=== PATIENT | male | born 1955 | race Caucasian/White ===

== ENCOUNTER → 2018-01-30 12:39 | Outpatient (CLI) | payer BC, SELFPAY ==
--- NOTE | 2018-01-31 05:42 | PFTCOMP_ITS ---
COMPLETE PULMONARY FUNCTION TEST INTERPRETATION Brief HPI: Patient is a 62 year old male, currently under the care of myself, who presents to [facility] for complete pulmonary function tests secondary to diagnosis of restrictive lung disease. Respiratory therapist reports good effort and reproducible results. Interpretation: Forced expiration spirometry shows no large airways obstructive ventilatory defect with an FEV1 of 72% predicted. There is no significant bronchodilator response by ATS criteria. Spirograms are of good quality and plateau normally. The respiratory flow volume loop shows a normal pattern. Lung volumes by body plethysmography show a decreased total lung capacity at 4.75 L, 80% predicted. All other lung volumes are reduced symmetrically. Diffusion capacity by carbon monoxide is normal at 75% predicted. The airway resistance is normal. Compared to previous pulmonary function tests from 02/02/2016, there has been a significant improvement in total lung capacity. Impression: Irreversible mild restrictive ventilatory defect with preserved diffusion capacity and significant improvement over the last 2 years.
== END ==
LOC: PSN 12:40
PROVIDERS: Family Provider Family Medicine; PCP Family Medicine; Visit Provider Internal Medicine Critical Care Medicine
DX: J98.4 Other disorders of lung (principal); G47.37 Central sleep apnea in conditions classified elsewhere
CPT/HCPCS: 94060; 94726; 94729

== ENCOUNTER → 2018-04-02 10:37 | Outpatient (CLI) | payer BC, SELFPAY ==
[2018-04-02 12:05] LABS: ALB/GLOB Ratio 0.9 RATIO (0.9-2.4); AST(SGOT) 33 U/L (15-37); Alanine Aminotransfer ALT/SGPT 43 U/L (16-61); Albumin, Serum 3.7 g/dL (3.2-5.0); Alkaline Phosphatase 116 U/L (45-117); Anion Gap 13 (5-15); BUN 23 mg/dL (7-18); BUN/Creat Ratio 17.8 RATIO (10-20); Calcium,Total 8.8 mg/dL (8.5-10.1); Chloride 97 mmol/L (98-107); Cholesterol 136 mg/dL (200); Creatinine, Serum 1.29 mg/dL (0.70-1.30); EST Glomerular Filtration Rate 60 mL/min (>60); Est Glom Filt Rate - Afr Amer 73 mL/min (>60); Glucose 190 mg/dL (74-106); High Density Lipoprotein 25 mg/dL; Potassium 3.5 mmol/L (3.5-5.1); Protein, Total 7.7 g/dL (6.4-8.2); Sodium Level 138 mmol/L (136-145); Thyroid Stim Hormone (TSH) 1.19 uIU/mL (0.358-3.74); Triglycerides 366 mg/dL; Very Low Density Lipoprotein 73 mg/dL (5-40)
[2018-04-02 12:27] LABS: Hemoglobin A1c 11.3 % (4.2-6.3)
== END ==
LOC: LAB 10:39
PROVIDERS: Family Provider Family Medicine; PCP Family Medicine; Visit Provider Nurse Practitioner
DX: E11.49 Type 2 diabetes mellitus with other diabetic neurological complication (principal)
CPT/HCPCS: 36415; 80053; 80061; 83036; 84443

== ENCOUNTER → 2018-04-03 13:05 | Outpatient (CLI) | payer BC, SELFPAY ==
[2018-04-03 13:55] LABS: Microalbumin,Random Urine < 5.0 mg/L (NO RANGE EST.)
== END ==
PROVIDERS: Family Provider Family Medicine; PCP Family Medicine; Visit Provider Nurse Practitioner
DX: E11.49 Type 2 diabetes mellitus with other diabetic neurological complication (principal)
CPT/HCPCS: 82043; 82570

== ENCOUNTER 2019-05-02 18:32 | Observation (INO) | payer BC, SELFPAY ==
[2018-10-01 13:21] VITALS: BMI 23.1
[2019-05-02] VITALS (8 sets, daily range): BP systolic 76–165; BP diastolic 49–114; PULSE 80–99; RESP 13–16; TEMP 36.9; O2SAT 94–97; BMI 23.0; BMI 22.2
--- NOTE | 2019-05-02 18:50 | RAD_ITS ---
STUDY: X-RAY CHEST REASON FOR EXAM: Male, 63 years old. Syncope. TECHNIQUE: Portable chest. COMPARISON: 01/20/2015. FINDINGS: The patient is rotated to the left. Sternotomy and surgical clips compatible with CABG. The lungs are clear and expanded. There is no demonstrated pleural abnormality. Normal size heart. Normal mediastinum and ramses. Normal visualized pulmonary arteries. Normal visualized aortic arch and descending thoracic aorta. Normal visualized thoracic spine. Normal visualized ribs, clavicles, and shoulders. There is no demonstrated abnormality of the visualized soft tissue structures of the upper abdomen. RAD/Chest 1 View (Portable) IMPRESSION: Normal x-ray examination of the chest. Electronically Signed: Alta Lemus MD at 19:43 EDT Tel , Service support ,
--- NOTE | 2019-05-02 18:50 | EKG12_ITS ---
Test Reason : SYNCOPE Blood Pressure : / mmHG Vent. Rate : 096 BPM Atrial Rate : 096 BPM P-R Int : 140 ms QRS Dur : 088 ms QT Int : 350 ms P-R-T Axes : 012 042 051 degrees QTc Int : 442 ms Sinus rhythm with Fusion complexes Otherwise normal ECG Confirmed by CARLOS MANUEL MONTE, SAMSON ([id number]), assistant film editor JOSE LUIS JUAREZ ([id number]) on 05/06/2019 3:30:17 PM Referred By: SADE Confirmed By:SAMSON HOROWITZ MD
[2019-05-02 18:58] LABS: Absolute Lymphocyte Count 0.89 X10^3/uL (0.83-4.51); Absolute Neutrophil Count 5.6 X10^3/uL (2.0-7.7); Basophil# 0.03 X10^3/uL; Basophil% 0.4 % (0-1); Eosinophil# 0.04 X10^3/uL; Eosinophils% 0.5 % (0-5); Hematocrit 36.4 % (40-54); Lymphocyte # 0.89 X10^3/ul (4.0); Lymphocyte % 12.1 % (19-41); Mean Corp Hgb Conc 27.5 g/dL (32-36); Mean Corpuscular Hgb 20.4 pg (27.0-32.0); Mean Corpuscular Volume 74.3 fL (80-94); Monocyte% 10.9 % (0-10); NRBC Flagged by Analyzer 0 % (0-5); Neutrophil # 5.57 X10^3/uL (2.7-7.7); Neutrophil % 75.7 % (47-70); Platelet Count 453 K/mm3 (150-450); RBC Distribution Width CV 17.6 % (11.6-14.6); RBC Distribution Width SD 46.8 fl (35.1-43.9); White Blood Count 7.4 K/mm3 (4.4-11.0)
[2019-05-02 19:18] LABS: Anion Gap 12 (5-15); BUN 26 mg/dL (7-18); BUN/Creat Ratio 14.3 RATIO (10-20); Calcium,Total 9.4 mg/dL (8.5-10.1); Chloride 102 mmol/L (98-107); Creatinine, Serum 1.82 mg/dL (0.70-1.30); EST Glomerular Filtration Rate 40 mL/min (>60); Est Glom Filt Rate - Afr Amer 49 mL/min (>60); Estimated Creatinine Clearance 39.85 ml/min; Glucose 105 mg/dL (74-106); Potassium 3.9 mmol/L (3.5-5.1); Sodium Level 139 mmol/L (136-145)
--- NOTE | 2019-05-02 19:27 | NURSING ---
DR DELAROSA NOTIFID OF ORTHOS
[2019-05-02] MEDS: 0.9% Normal Saline 1,000 ML 150 ML IV (19:34)
--- NOTE | 2019-05-02 19:48 | ED.VISSUMM ---
- ER Visit Summary Date of Service: 05/02/19 Chief Complaint: [Syncope] History of Present Illness: The patient is a 63 M [presents to the emergency department with a syncopal episode this afternoon. Patient went to his doctor's office because he has had some difficulty seeing over the last couple of days so he went to the [facility] where he was evaluated. On the way out to the car patient felt lightheaded and dizzy and there was a chair near the vehicle that the got him into and the patient passed out for short time. She denies any chest pain or shortness of breath. She denies any abdominal pain. Patient has had some intermittent blood in his stool for about a year he relates to hemorrhoids. Denies recent illness and has had no vomiting or diarrhea. Patient has history of coronary artery disease, diabetes, hypertension, high cholesterol, peripheral vascular disease, and cardiomyopathy.] Physical Examination: [HEENT-PERRLA, EOMI. Cranial nerves II through XII grossly intact. TMs clear. Mucous membranes moist. No adenopathy. Cardiovascular-regular rate and rhythm without murmur or ectopy Lungs-clear to auscultation, chest wall stable without crepitus or subcu emphysema Abdomen-normoactive bowel sounds, soft, nontender, no rebound or rigidity, no peritoneal signs. Extremities-intact ?4, normal range of motion, normal pulses, atraumatic] Test Results: [EKG obtained on arrival shows sinus rhythm with a ventricular rate of 96 bpm. CBC with differential showed a white count 7.4, hemoglobin 10, hematocrit 36, platelets 453. Chemistries unremarkable. BUN was 26 and creatinine 1.82. Troponin is less than 0.015. Chest x-ray obtained was normal. Orthostatic vital signs were positive. With sitting patient's blood pressure dropped into the 70 systolic.] Emergency Department Course and Treatment: [Patient was ordered a liter normal same fluid bolus.] Treatment Plan: [Admit] Disposition: [Admit] Impression: [Syncope Orthostatic hypotension Acute kidney injury] This note was generated with [employer] dictation software. It may contain incorrect words, spelling, and punctuation that were not noted in review of the chart prior to signing ED Disposition - Plan for ED Patient: Referrals: Kendy Modi MD [Primary Care Provider] -
--- NOTE | 2019-05-02 20:22 | PCM.HP.STD ---
Problem List (1) Peripheral vascular disease Status: Acute (2) Hyperlipidemia Status: Acute (3) Ischemic cardiomyopathy Status: Acute (4) TIA (transient ischemic attack) Status: Acute (5) Type 2 diabetes mellitus Status: Chronic Qualifiers: Diabetes mellitus ad terminal makeup operator insulin use: unspecified chcf insulin use status Diabetes mellitus complication status: with neurologic complications Diabetes mellitus complication detail: with unspecified neuropathy Qualified Code(s): E11.40 - Type 2 diabetes mellitus with diabetic neuropathy, unspecified (6) Anxiety disorder Status: Chronic (7) GERD (gastroesophageal reflux disease) Status: Chronic (8) Carotid artery disease Status: Chronic (9) History of coronary artery stent placement Status: Chronic Comment: CZQ-GQS-YLL-Ramus 01/02/15 (10) H/O coronary artery bypass surgery Status: Chronic Comment: CABG x 5 05/30/2008 ZUNIGA-LAD and D1, Free KIMBERLYN-PDA, SVG-Ramus, SVG-OM1 (11) CVA (cerebral vascular accident) Status: Chronic Comment: cerebellar stroke Right endarterectomy (12) Diabetes Status: Chronic Qualifiers: Diabetes mellitus type: type 2 Diabetes mellitus ad terminal makeup operator insulin use: with ad terminal makeup operator use Diabetes mellitus complication status: with unspecified complications Comment: Dx : 2007 Last exacerbation : DKA : never Hypoglycemic episode : never ER visit : never (13) HTN (hypertension) Status: Chronic Qualifiers: Hypertension type: essential hypertension Qualified Code(s): I10 - Essential (primary) hypertension (14) Dyslipidemia Status: Chronic History of Present Illness Date of Admission: 05/02/19 Chief Complaint: Syncope The patient is a 63 year old M with PMH as below who presents with a syncopal episode that happened this afternoon. He states that he went to his eye doctor's office for an exam for bleed in his left eye. He left and as has he was walking to the car he got lightheaded and dizzy and his was able to get him into a chair next to the car and he passed out for a short time. He did not have any post ictal type symptoms, and there is no seizure-like activity. He states that he has been having episodes of blood clots and bright red blood per his rectum since last April, but he has not wanted to have it checked out by a doctor. He 63 years old and is never had a colonoscopy before. He thinks that his bleeding is related to hemorrhoids. He denies any hematemesis. In the ER he was found to have a hemoglobin of 10, and was also orthostatic. He was given IV fluids and was admitted for syncopal evaluation. Past Medical History Past Medical History (Chronic Problems): Chronic Problems (Last Reviewed 10/01/18 @ 13:13 by Patsy Joya) Obstructive sleep apnea (Chronic) Dizziness and giddiness (Chronic) Long-term current use of high risk medication other than anticoagulant (Chronic) Central sleep apnea (Chronic) Nocturnal hypoxia (Chronic) Restrictive lung disease (Chronic) Type 2 diabetes mellitus (Chronic) Anxiety disorder (Chronic) GERD (gastroesophageal reflux disease) (Chronic) Carotid artery disease (Chronic) S/P right and left heart catheterization (Chronic 01/22/15) History of coronary artery stent placement (Chronic 01/02/15) [id number]-UOH-BEO-Ramus 01/02/15 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) H/O coronary artery bypass surgery (Chronic 05/30/08) CABG x 5 05/30/2008 ZUNIGA-LAD and D1, Free KIMBERLYN-PDA, SVG-Ramus, SVG-OM1 Peripheral vascular occlusive disease (Chronic) CVA (cerebral vascular accident) (Chronic) cerebellar stroke Right endarterectomy Diabetes (Chronic) Dx : 2007 Last exacerbation : DKA : never Hypoglycemic episode : never ER visit : never HTN (hypertension) (Chronic) Dyslipidemia (Chronic) ALEJANDRO (obstructive sleep apnea) (Chronic) Dizziness (Chronic) Medical History: Medical History (Last Reviewed 10/01/18 @ 13:13 by Patsy Joya) Obstructive sleep apnea (Chronic) G47.33 Dizziness and giddiness (Chronic) R42 Long-term current use of high risk medication other than anticoagulant (Chronic) Z79.899 Central sleep apnea (Chronic) G47.31 Nocturnal hypoxia (Chronic) G47.34 Restrictive lung disease (Chronic) J98.4 Type 2 diabetes mellitus (Chronic) E11.9 Anxiety disorder (Chronic) F41.9 GERD (gastroesophageal reflux disease) (Chronic) K21.9 Carotid artery disease (Chronic) I77.9 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) I25.798 Peripheral vascular occlusive disease (Chronic) I73.9 CVA (cerebral vascular accident) (Chronic) I63.9 cerebellar stroke Right endarterectomy Diabetes (Chronic) E11.9 Dx : 2007 Last exacerbation : DKA : never Hypoglycemic episode : never ER visit : never HTN (hypertension) (Chronic) I10 Dyslipidemia (Chronic) E78.5 ALEJANDRO (obstructive sleep apnea) (Chronic) G47.33 Dizziness (Chronic) R42 Diabetic neuropathy E11.40 Chronic back pain M54.9, G89.29 Allergies No Known Allergies Allergy (Verified 10/01/18 13:21) Home Medications: Ambulatory Orders Medication Instructions Recorded Aspirin 81 mg PO DAILY 03/20/16 Duloxetine HCl 60 mg PO DAILY 03/20/16 nitroglycerin 0.4 mg sublingual 0.4 mg SUBLINGUAL Q5-15M PRN 03/02/18 tablet insulin lispro (U-100) 100 unit/mL See Rx Instructions SC .COMPLEX 04/02/18 subcutaneous pen #60 ml clopidogrel 75 mg tablet 75 mg PO DAILY #90 tab 08/13/18 omeprazole 20 mg capsule,delayed 20 mg PO DAILY #90 cap 10/01/18 release lisinopril 10 mg tablet 10 mg PO DAILY #90 tab 02/26/19 rosuvastatin 20 mg tablet 20 mg PO DAILY #90 tab 02/26/19 hydrochlorothiazide 12.5 mg capsule 12.5 mg PO DAILY #90 cap 02/27/19 Cbd Oil 1 dose PO BID PRN PRN 05/02/19 Insulin Detemir [Levemir FlexPen] 70 unit SUBCUT QHS 05/02/19 Metoprolol Tartrate 12.5 mg PO BID 05/02/19 Surgical History: Surgical History (Last Reviewed 10/01/18 @ 13:13 by Patsy Joya) S/P right and left heart catheterization (Chronic) Onset Date: 01/22/15 Z98.890 History of coronary artery stent placement (Chronic) Onset Date: 01/02/15 Z95.5 NOD-KXU-JWD-Ramus 01/02/15 H/O coronary artery bypass surgery (Chronic) Onset Date: 05/30/08 Z95.1 CABG x 5 05/30/2008 ZUNIGA-LAD and D1, Free KIMBERLYN-PDA, SVG-Ramus, SVG-OM1 Excision Max.Zygoma Face Tumor History of herniorrhaphy Z98.890, Z87.19 History of right-sided carotid endarterectomy Z98.890 History of tonsillectomy Z98.890, Z90.89 PTCA Left Anterior Tibial and Paroneal Artery Surgical History: coronary bypass surgery Psychiatric History: No pertinent psych hx Smoking Status: Never smoker - *Family History Paternal Family History: Family History (Last Reviewed 10/01/18 @ 13:13 by Patsy Joya) Father CAD (coronary artery disease) Hypertension Mother CVA (cerebral vascular accident) Diabetes Breast cancer History Items: Cancer, - Maternal Family History: Family History (Last Reviewed 10/01/18 @ 13:13 by Patsy Joya) Father CAD (coronary artery disease) Hypertension Mother CVA (cerebral vascular accident) Diabetes Breast cancer History Items: Cancer, - Review of Systems Constitutional: Denies: Chills, Fever, Weight Change HEENT: Denies: Head Aches, Sinus Congestion, Sinus Drainage Cardiovascular: Reports: Light Headedness, Syncope. Denies: Chest Pain, Palpitations Respiratory: Denies: Cough, Shortness of breath at rest, Sputum production Gastrointestinal: Reports: Hematochezia, Melena. Denies: Abdominal Pain, Nausea, Vomiting Genitourinary: Denies: Dysuria Musculoskeletal: Denies: Joint Pain, Joint Tenderness Skin: Denies: Rash, Wounds Neurological: Denies: Numbness, Tingling, Focal weakness Psychiatric: Denies: Anxiety, Depression Hematologic/ Lymphatic: Denies: Easy Bruising, Easy Bleeding VTE Information - Inpt Only VTE Present on Admission: No - Physical Exam General: Alert, Oriented x3, Cooperative, No apparent distress, - - Pale HEENT: Atraumatic, PERRLA, EOMI, Normocephalic Oral: Dry Mucosa Neck: Supple, No JVD Lungs: Clear to auscultation, Normal air movement, No rhonchi, No wheeze, No rales Cardiovascular: Regular rate, Regular Rhythm, Normal S1, Normal S2, No murmurs Abdomen: Soft, Non Tender, Non-Distended, No Hepato-splenomegaly Extremities: No edema, Capillary Refill Less than 3 Seconds Skin: No rashes, No breakdown Neurological: Motor Exam 5/5 strength throughout, Sensory exam intact to light touch and pain Psych/Mental Status: Normal Affect, Appropriate Vital Signs Temp Pulse Resp BP Pulse Ox 98.5 F 85 13 108/64 95 05/02/19 18:33 05/02/19 19:33 05/02/19 19:33 05/02/19 19:33 05/02/19 19:33 Oxygen Delivery Method Room Air Weight: 147 lb 0.773 oz Body Mass Index (BMI) 23.0 Finger Stick Blood Glucose 339 Laboratory Tests Past 24 Hrs 05/02/19 05/02/19 18:41 18:41 WBC 7.4 RBC 4.90 Hgb 10.0 L Hct 36.4 L MCV 74.3 L MCH 20.4 L MCHC 27.5 L RDW Std Deviation 46.8 H RDW Coeff of Maia 17.6 H Plt Count 453 H MPV 9.0 Immature Gran % (Auto) 0.400 Neut % (Auto) 75.7 H Lymph % (Auto) 12.1 L [place] % (Auto) 10.9 H Eos % (Auto) 0.5 Baso % (Auto) 0.4 Absolute Neuts (auto) 5.6 Absolute Lymphs (auto) 0.89 Nucleated RBC % 0 Sodium 139 Potassium 3.9 Chloride 102 Carbon Dioxide 25.0 Anion Gap 12 BUN 26 H Creatinine 1.82 H Estim Creat Clear Calc 39.85 Est GFR (MDRD) Af Amer 49 L Est GFR (MDRD) Non-Af 40 L BUN/Creatinine Ratio 14.3 Glucose 105 Calcium 9.4 Troponin I < 0.015 Assessment/Plan All Active Problems (Last Reviewed 10/01/18 @ 13:13 by Patsy Joya) Peripheral vascular disease (Acute) Hyperlipidemia (Acute) Ischemic cardiomyopathy (Acute) TIA (transient ischemic attack) (Acute) Spinal stenosis (Acute) 1. Syncope with dehydration and a lower GI bleed leading to blood loss and iron deficiency anemia/MADELEINE -Lower GI bleed has been slow over the last year -His previous hemoglobin was 16 in 2016, currently he is 10 with an MCV and MCH indicative of iron deficiency -Unfortunately he will be able to have a colonoscopy tomorrow based on the endoscopy schedule -We will repeat an H&H at 1 AM after he is gotten some fluid and if it drops below 8 we will transfuse 2 units -Screen was obtained in the ER -Continue with IV fluids for his orthostasis -On admission his creatinine is 1.82, his baseline appears to be close to 1.2 2. CAD status post stents and CABG/HTN/HLD/history of CVA -He has a history of a carotid endarterectomy after a CVA -We will hold his aspirin and his Plavix given his GI bleed his stents were over 3 years ago -We will hold off of his blood pressure medications while he is acutely orthostatic -Continue with his statin 3. IDDM 2 -Continue with his home insulin regimen -Accu-Cheks AC at bedtime 4. Anxiety/depression -Stable -Continue with Cymbalta DVT: SCDs Code Visit OBSV E&M: 23063 Initial observation care L3
[2019-05-02] MEDS: 0.9% Normal Saline 1,000 ML 100 ML IV (21:48)
[2019-05-02 22:11] LABS: Bedside Glucose 143 mg/dL (70-110)
[2019-05-02] MEDS: Metoprolol Tartrate 25 MG Tablet 12.5 MG PO (22:25)
[2019-05-02] MEDS: Atorvastatin Calcium 40 MG Tablet PO (22:25)
[2019-05-03] VITALS (21 sets, daily range): BP systolic 101–171; BP diastolic 66–89; PULSE 80–93; RESP 16–18; TEMP 36.6–37.2; O2SAT 94–99
[2019-05-03 01:03] LABS: Hematocrit 29.3 % (40-54); Hemoglobin 8.3 g/dL (13.0-16.5)
[2019-05-03 03:26] LABS: Anion Gap 10 (5-15); BUN 32 mg/dL (7-18); BUN/Creat Ratio 27.8 RATIO (10-20); Calcium,Total 8.3 mg/dL (8.5-10.1); Chloride 106 mmol/L (98-107); Creatinine, Serum 1.15 mg/dL (0.70-1.30); EST Glomerular Filtration Rate 69 mL/min (>60); Est Glom Filt Rate - Afr Amer 83 mL/min (>60); Estimated Creatinine Clearance 61.44 ml/min; Glucose 134 mg/dL (74-106); Potassium 4.5 mmol/L (3.5-5.1); Sodium Level 143 mmol/L (136-145)
[2019-05-03 06:40] LABS: Bedside Glucose 95 mg/dL (70-110)
[2019-05-03] MEDS: Metoprolol Tartrate 25 MG Tablet 12.5 MG PO ×2 (09:13→22:23)
[2019-05-03] MEDS: Pantoprazole Sodium 20 MG Tablet PO (09:13)
--- NOTE | 2019-05-03 10:01 | PCM.CONS.GEN ---
Reason for Consult Date of Consultation: 05/03/19 History of Present Illness: The patient is a 63 year old M presented to the ER due to bright red blood and clots per rectum. Patient states this occurs daily and occasionally he will just have blood and mucus coming out. States that this started last April and it was worse at that time and then again in November it was worse however it has continued daily throughout that time. But less in amount. Patient states that last for the last 2 to 3 months he has had spasms with bowel movements and even urination if he is on the toilet. Patient does state that he also had some urgency however when he gets the toilet he may not have anything but he also may have blood starting to come out as well. Patient states he normally has a bowel movement with stool only about once a week last Monday he had a little bit in the Monday before that he had quite a bit. Patient states he does eat 3 meals a day and still has an appetite no nausea no vomiting has some right lower abdominal pain which is usually constant can range from a 3?10/10 currently he states less than at 3/10 and he states it can be worse with moving. Patient has never had a colonoscopy previously. Patient's first cousin was diagnosed with UC, patient's mom had metastatic breast cancer, father leukemia and father's brother also had some form of leukemia it sounds like. Patient's initial hemoglobin was 10 and repeat was 8.3. Patient is receiving 2 units packed red blood cells Past Medical History Past Medical History (Chronic Problems): Chronic Problems (Last Reviewed 10/01/18 @ 13:13 by Patsy Joya) Obstructive sleep apnea (Chronic) Dizziness and giddiness (Chronic) Long-term current use of high risk medication other than anticoagulant (Chronic) Central sleep apnea (Chronic) Nocturnal hypoxia (Chronic) Restrictive lung disease (Chronic) Type 2 diabetes mellitus (Chronic) Anxiety disorder (Chronic) GERD (gastroesophageal reflux disease) (Chronic) Carotid artery disease (Chronic) S/P right and left heart catheterization (Chronic 01/22/15) History of coronary artery stent placement (Chronic 01/02/15) [id number] 01/02/15 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) H/O coronary artery bypass surgery (Chronic 05/30/08) CABG x 5 05/30/2008 ZUNIGA-LAD and D1, Free KIMBERLYN-PDA, SVG-Ramus, SVG-OM1 Peripheral vascular occlusive disease (Chronic) CVA (cerebral vascular accident) (Chronic) cerebellar stroke Right endarterectomy Diabetes (Chronic) Dx : 2007 Last exacerbation : DKA : never Hypoglycemic episode : never ER visit : never HTN (hypertension) (Chronic) Dyslipidemia (Chronic) ALEJANDRO (obstructive sleep apnea) (Chronic) Dizziness (Chronic) Medical History: Medical History (Last Reviewed 10/01/18 @ 13:13 by Patsy Joya) Obstructive sleep apnea (Chronic) G47.33 Dizziness and giddiness (Chronic) R42 Long-term current use of high risk medication other than anticoagulant (Chronic) Z79.899 Central sleep apnea (Chronic) G47.31 Nocturnal hypoxia (Chronic) G47.34 Restrictive lung disease (Chronic) J98.4 Type 2 diabetes mellitus (Chronic) E11.9 Anxiety disorder (Chronic) F41.9 GERD (gastroesophageal reflux disease) (Chronic) K21.9 Carotid artery disease (Chronic) I77.9 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) I25.798 Peripheral vascular occlusive disease (Chronic) I73.9 CVA (cerebral vascular accident) (Chronic) I63.9 cerebellar stroke Right endarterectomy Diabetes (Chronic) E11.9 Dx : 2007 Last exacerbation : DKA : never Hypoglycemic episode : never ER visit : never HTN (hypertension) (Chronic) I10 Dyslipidemia (Chronic) E78.5 ALEJANDRO (obstructive sleep apnea) (Chronic) G47.33 Dizziness (Chronic) R42 Diabetic neuropathy E11.40 Chronic back pain M54.9, G89.29 Allergies No Known Allergies Allergy (Verified 10/01/18 13:21) Home Medications: Ambulatory Orders Medication Instructions Recorded Aspirin 81 mg PO DAILY 03/20/16 Duloxetine HCl 60 mg PO DAILY 03/20/16 nitroglycerin 0.4 mg sublingual 0.4 mg SUBLINGUAL Q5-15M PRN 03/02/18 tablet insulin lispro (U-100) 100 unit/mL See Rx Instructions SC .COMPLEX 04/02/18 subcutaneous pen #60 ml clopidogrel 75 mg tablet 75 mg PO DAILY #90 tab 08/13/18 omeprazole 20 mg capsule,delayed 20 mg PO DAILY #90 cap 10/01/18 release lisinopril 10 mg tablet 10 mg PO DAILY #90 tab 02/26/19 rosuvastatin 20 mg tablet 20 mg PO DAILY #90 tab 02/26/19 hydrochlorothiazide 12.5 mg capsule 12.5 mg PO DAILY #90 cap 02/27/19 Cbd Oil 1 dose PO BID PRN PRN 05/02/19 Insulin Detemir [Levemir FlexPen] 70 unit SUBCUT QHS 05/02/19 Metoprolol Tartrate 12.5 mg PO BID 05/02/19 Surgical History: Surgical History (Last Reviewed 10/01/18 @ 13:13 by Patsy Joya) S/P right and left heart catheterization (Chronic) Onset Date: 01/22/15 Z98.890 History of coronary artery stent placement (Chronic) Onset Date: 01/02/15 Z95.5 [id number] 01/02/15 H/O coronary artery bypass surgery (Chronic) Onset Date: 05/30/08 Z95.1 CABG x 5 05/30/2008 ZUNIGA-LAD and D1, Free KIMBERLYN-PDA, SVG-Ramus, SVG-OM1 Excision Max.Zygoma Face Tumor History of herniorrhaphy Z98.890, Z87.19 History of right-sided carotid endarterectomy Z98.890 History of tonsillectomy Z98.890, Z90.89 PTCA Left Anterior Tibial and Paroneal Artery Surgical History: coronary bypass surgery Psychiatric History: No pertinent psych hx Smoking Status: Never smoker - *Family History Paternal Family History: Family History (Last Reviewed 10/01/18 @ 13:13 by Patsy Joya) Father CAD (coronary artery disease) Hypertension Mother CVA (cerebral vascular accident) Diabetes Breast cancer History Items: Cancer, - Maternal Family History: Family History (Last Reviewed 10/01/18 @ 13:13 by Patsy Joya) Father CAD (coronary artery disease) Hypertension Mother CVA (cerebral vascular accident) Diabetes Breast cancer History Items: Cancer, - Review of Systems Constitutional: Denies: Anorexia, Fever HEENT: Denies: Difficulty Swallowing Cardiovascular: Denies: Chest Pain Respiratory: Denies: Shortness of Breath Gastrointestinal: Reports: Abdominal Pain, Constipation, Hematochezia Neurological: Denies: Balance problems Psychiatric: Denies: Anxiety Hematologic/ Lymphatic: Denies: Easy Bruising - Physical Exam General: Alert, Oriented x3, Cooperative, No apparent distress HEENT: Atraumatic Lungs: Normal air movement Cardiovascular: Regular rate Abdomen: Soft, Non-Distended, Tender - Tender to palpation bilateral lower quadrants, no peritoneal signs, - - FAROOQ: Residual hemorrhoidal external tissue, suspicious nodularity inside the rectum extending further than internal hemorrhoids, bright red blood Extremities: No clubbing, No cyanosis, No edema Vital Signs Temp Pulse Resp BP Pulse Ox 98.2 F 89 16 143/80 H 94 05/03/19 09:25 05/03/19 09:25 05/03/19 09:25 05/03/19 09:25 05/03/19 09:25 Oxygen Delivery Method Room Air Weight: 141 lb 15.643 oz Body Mass Index (BMI) 22.2 Finger Stick Blood Glucose 339 Intake and Output for Last 24 Hours 05/01/19 05/02/19 05/03/19 23:59 23:59 23:59 Intake Total 835 / 935 1258.33 / 1258.33 Output Total 300 / 300 Balance 835 / 935 958.33 / 958.33 Laboratory Tests Past 24 Hrs 05/02/19 05/02/19 05/03/19 18:41 18:41 00:53 WBC 7.4 RBC 4.90 Hgb 10.0 L 8.3 L Hct 36.4 L 29.3 L MCV 74.3 L MCH 20.4 L MCHC 27.5 L RDW Std Deviation 46.8 H RDW Coeff of Maia 17.6 H Plt Count 453 H MPV 9.0 Immature Gran % (Auto) 0.400 Neut % (Auto) 75.7 H Lymph % (Auto) 12.1 L [place] % (Auto) 10.9 H Eos % (Auto) 0.5 Baso % (Auto) 0.4 Absolute Neuts (auto) 5.6 Absolute Lymphs (auto) 0.89 Nucleated RBC % 0 Sodium 139 Potassium 3.9 Chloride 102 Carbon Dioxide 25.0 Anion Gap 12 BUN 26 H Creatinine 1.82 H Estim Creat Clear Calc 39.85 Est GFR (MDRD) Af Amer 49 L Est GFR (MDRD) Non-Af 40 L BUN/Creatinine Ratio 14.3 Glucose 105 Calcium 9.4 Troponin I < 0.015 Blood Type Antibody Screen Crossmatch 05/03/19 05/03/19 02:59 02:59 WBC RBC Hgb Hct MCV MCH MCHC RDW Std Deviation RDW Coeff of Maia Plt Count MPV Immature Gran % (Auto) Neut % (Auto) Lymph % (Auto) [place] % (Auto) Eos % (Auto) Baso % (Auto) Absolute Neuts (auto) Absolute Lymphs (auto) Nucleated RBC % Sodium 143 Potassium 4.5 Chloride 106 Carbon Dioxide 27.0 Anion Gap 10 BUN 32 H Creatinine 1.15 Estim Creat Clear Calc 61.44 Est GFR (MDRD) Af Amer 83 Est GFR (MDRD) Non-Af 69 BUN/Creatinine Ratio 27.8 H Glucose 134 H Calcium 8.3 L Troponin I Blood Type A NEGATIVE Antibody Screen NEGATIVE Crossmatch See Detail POC Glucose 05/03/19 05/02/19 06:29 22:04 POC Glucose 95 143 H Assessment/Plan All Active Problems (Last Reviewed 10/01/18 @ 13:13 by Patsy Joya) Peripheral vascular disease (Acute) Hyperlipidemia (Acute) Ischemic cardiomyopathy (Acute) TIA (transient ischemic attack) (Acute) Spinal stenosis (Acute) 63-year-old male with bright red blood per rectum, anemia?patient currently getting 2 units packed red blood cells, suspicious mass on rectal exam Discussed with patient and his that on rectal exam there was quite a bit of nodularity that extend further than I believe that internal hemorrhoids would and it also caused bright red bleeding with exam. Exam suspicious for rectal cancer. Discussed with patient and his that could get a diagnosis today however since he is never had a colonoscopy he should really have the rest of his colon also looked at. Patient was agreeable to a colonoscopy. However he only has a bowel movement once a week. Will attempt to prep the patient with magnesium citrate and then MiraLAX and Gatorade however if he is not clean by tomorrow will delay colonoscopy until Monday. I have discussed the above with the patient. I have offered the patient colonoscopy for evaluation. I have explained the risks/benefits of the procedure and described the procedure. I have discussed the risks with the patient, including but not limited to: infection, bleeding, perforation of the GI tract requiring emergency surgery, inability to complete the procedure, injury to any internal organs, complications of anesthesia, etc. - the patient understands and agrees to proceed. I have answered all the patient's questions to the patient's satisfaction and the patient has no further questions. Keisha Dillard M.D. Pager: [phone] [facility] [address] [place] [address], [address] [place] [address] Office: [phone] Code Visit Inpatient E&M: 76410 Init Hosp L2
[2019-05-03] MEDS: Magnesium Citrate 300 ML PO (11:40)
[2019-05-03 11:41] LABS: Bedside Glucose 203 mg/dL (70-110)
[2019-05-03] MEDS: Insulin Lispro 100 UNIT/ML INSULN.PEN SC ×3 (11:43→22:22)
[2019-05-03 13:06] LABS: Absolute Lymphocyte Count 1.38 X10^3/uL (0.83-4.51); Absolute Neutrophil Count 4.2 X10^3/uL (2.0-7.7); Basophil# 0.02 X10^3/uL; Basophil% 0.3 % (0-1); Eosinophil# 0.05 X10^3/uL; Eosinophils% 0.8 % (0-5); Hematocrit 36.5 % (40-54); Hemoglobin 10.8 g/dL (13.0-16.5); Lymphocyte # 1.38 X10^3/ul (4.0); Lymphocyte % 21.7 % (19-41); Mean Corp Hgb Conc 29.6 g/dL (32-36); Mean Corpuscular Hgb 22.5 pg (27.0-32.0); Mean Corpuscular Volume 76.2 fL (80-94); Mean Platelet Vol. 8.8 fl (6.2-12.0); Monocyte# 0.72 X10^3/uL; Monocyte% 11.3 % (0-10); NRBC Flagged by Analyzer 0 % (0-5); Neutrophil # 4.17 X10^3/uL (2.7-7.7); Neutrophil % 65.6 % (47-70); Platelet Count 314 K/mm3 (150-450); RBC Distribution Width CV 18.8 % (11.6-14.6); RBC Distribution Width SD 51.4 fl (35.1-43.9); Red Blood Count 4.79 M/mm3 (4.6-6.2); White Blood Count 6.4 K/mm3 (4.4-11.0)
[2019-05-03] MEDS: Polyethylene Glycol 3350 BOWEL PREP PO (15:35)
[2019-05-03] MEDS: 0.9% Normal Saline 1,000 ML 100 ML IV (16:04)
--- NOTE | 2019-05-03 16:59 | PCM.PROGNOTE ---
Subjective: The patient is a 63-year-old female with a past medical history of central sleep apnea, restrictive lung disease, diabetes mellitus type 2, anxiety disorder, GERD, carotid artery disease, coronary artery disease with PCI/KENZIE to to saphenous vein graft?ramus 01/02/2015, history of CABG x5 vessels in May 2008, peripheral vascular disease, CVA, diabetes mellitus type 2, hypertension and dyslipidemia who presented to the emergency department at [facility] on 05/02/2019 having a syncopal episode. He was walking to his car and got lightheaded and his was able to get him into a chair and then he passed out for a brief time. He was not postictal when he woke up. He had no seizure like activity. He complained of having episodes of blood clots and bright red blood per rectum. This has been going on for 1 year. He had never had a colonoscopy. He was seen in consultation by Dr. Dillard who did a digital rectal examination and there was suspicious nodularity inside the rectum extending further than the internal hemorrhoids with bright red blood on the examining finger. She is suspicious of a rectal mass/CA. Afebrile since admission Hemodynamically stable Maintaining appropriate oxygen saturation on room air All lab and radiology was personally reviewed. Hemoglobin dropped from 10-8.3 today and 2 units of PRBC's were ordered by the night hospitalist Objective: PHYSICAL EXAM: GENERAL: alert, oriented X 3, Cooperative, NAD ORAL: dry mucosa, no mucosal lesions NECK: No JVD, supple, trachea midline LUNGS: CTA, symmetric chest expansion HEART: RRR, Normal S1 and S2, no rub, no gallop ABDOMEN: soft, NT, ND, BS present, no guarding with palpation EXTREMITIES: no edema, no cyanosis, no calf tenderness SKIN: No rashes, no breakdown NEUROLOGIC: no focal neurologic deficits PSYCH: appropriate, normal affect, pleasant - Physical Exam Vital Signs Temp Pulse Resp BP Pulse Ox 98.3 F 81 16 151/84 H 95 05/03/19 14:19 05/03/19 15:28 05/03/19 14:19 05/03/19 14:19 05/03/19 14:19 Oxygen Delivery Method Room Air Weight: 141 lb 15.643 oz Body Mass Index (BMI) 22.2 Finger Stick Blood Glucose 339 Intake and Output for Last 24 Hours 0905/02/19 05/03/19 23:59 23:59 23:59 Intake Total 835 / 935 2400.00 / 2400.00 Output Total 975 / 975 Balance 835 / 935 1425.00 / 1425.00 Laboratory Tests Past 24 Hrs 05/02/19 05/02/19 05/03/19 18:41 18:41 00:53 WBC 7.4 RBC 4.90 Hgb 10.0 L 8.3 L Hct 36.4 L 29.3 L MCV 74.3 L MCH 20.4 L MCHC 27.5 L RDW Std Deviation 46.8 H RDW Coeff of Maia 17.6 H Plt Count 453 H MPV 9.0 Immature Gran % (Auto) 0.400 Neut % (Auto) 75.7 H Lymph % (Auto) 12.1 L [place] % (Auto) 10.9 H Eos % (Auto) 0.5 Baso % (Auto) 0.4 Absolute Neuts (auto) 5.6 Absolute Lymphs (auto) 0.89 Nucleated RBC % 0 Sodium 139 Potassium 3.9 Chloride 102 Carbon Dioxide 25.0 Anion Gap 12 BUN 26 H Creatinine 1.82 H Estim Creat Clear Calc 39.85 Est GFR (MDRD) Af Amer 49 L Est GFR (MDRD) Non-Af 40 L BUN/Creatinine Ratio 14.3 Glucose 105 Calcium 9.4 Troponin I < 0.015 Blood Type Antibody Screen Crossmatch 05/03/19 05/03/19 05/03/19 02:59 02:59 12:55 WBC 6.4 RBC 4.79 Hgb 10.8 L Hct 36.5 L MCV 76.2 L MCH 22.5 L MCHC 29.6 L RDW Std Deviation 51.4 H RDW Coeff of Maia 18.8 H Plt Count 314 MPV 8.8 Immature Gran % (Auto) 0.300 Neut % (Auto) 65.6 Lymph % (Auto) 21.7 [place] % (Auto) 11.3 H Eos % (Auto) 0.8 Baso % (Auto) 0.3 Absolute Neuts (auto) 4.2 Absolute Lymphs (auto) 1.38 Nucleated RBC % 0 Sodium 143 Potassium 4.5 Chloride 106 Carbon Dioxide 27.0 Anion Gap 10 BUN 32 H Creatinine 1.15 Estim Creat Clear Calc 61.44 Est GFR (MDRD) Af Amer 83 Est GFR (MDRD) Non-Af 69 BUN/Creatinine Ratio 27.8 H Glucose 134 H Calcium 8.3 L Troponin I Blood Type A NEGATIVE Antibody Screen NEGATIVE Crossmatch See Detail POC Glucose 05/03/19 05/03/19 05/02/19 11:18 06:29 22:04 POC Glucose 203 H 95 143 H Medical Necessity - Tobacco Use Smoking Status: Never smoker Assessment/Plan All Active Problems (Last Reviewed 10/01/18 @ 13:13 by Patsy Joya) Peripheral vascular disease (Acute) Hyperlipidemia (Acute) Ischemic cardiomyopathy (Acute) TIA (transient ischemic attack) (Acute) Spinal stenosis (Acute) Impressions 1. Syncope likely secondary to dehydration/lower GI bleed with decrease intravascular volume. 2. Microcytic anemia secondary to iron deficiency with a ferritin of 8. Will give iron sucrose. 3. Acute kidney injury-secondary to dehydration 4. Chronic blood loss over the past year 5. Nodularity in the rectum possibly secondary to rectal CA-seen by Dr. Dillard and plan is for colonoscopy. Chronic conditions 6. Diabetes mellitus type 2 7. Ischemic cardiomyopathy? per the H&P but, EF was 60% on the last ECHO in 2014 8. Coronary artery disease with history of a 5 vessel CABG in 2007 and at that time the EF was 45% 9. Vascular disease -is under gone balloon angioplasty by Dr. Biswas in the past. 10. Carotid artery disease with history of TIA and CVA with right carotid endarterectomy in the past 11. Anxiety disorder 12. GERD 13. Hypertension 14. Dyslipidemia Bowel prep today and colonoscopy in the AM if the prep is adequate. IF not colonoscopy Monday Recheck lab in the AM Code Visit Inpatient E&M: 93320 Subs Hosp L2
[2019-05-03 17:26] LABS: Platelet Count 338 K/mm3 (150-450); Reticulocyte Count 0.79 % (0.5-1.5)
[2019-05-03 17:36] LABS: Ferritin 8 ng/mL (26-388); Iron 24 ug/dL (65-175); Iron Binding Capacity,Total 327 ug/dL (250-450); PERCENT IRON SATURATION 7.3 % (15.0-55.0)
[2019-05-03 17:57] LABS: Partial Thromboplast Time 40.7 Seconds (24.1-36.2); Prothrombin Time (Protime)PT. 13.3 SECONDS (11.7-14.9)
[2019-05-03 18:02] LABS: Bedside Glucose 324 mg/dL (70-110)
[2019-05-03] MEDS: Bisacodyl 5 MG Tablet 20 MG PO (20:14)
[2019-05-03] MEDS: DULoxetine Hcl 60 MG Capsule PO (22:22)
[2019-05-03] MEDS: Atorvastatin Calcium 40 MG Tablet PO (22:23)
[2019-05-03 23:21] LABS: Bedside Glucose 226 mg/dL (70-110)
[2019-05-04] VITALS (14 sets, daily range): BP systolic 115–210; BP diastolic 68–116; PULSE 66–94; RESP 16–18; TEMP 36.3–37.1; O2SAT 95–98; BMI 22.2
[2019-05-04] MEDS: Polyethylene Glycol 3350 BOWEL PREP PO ×2 (00:12→16:36)
[2019-05-04] MEDS: 0.9% Normal Saline 1,000 ML 100 ML IV ×3 (02:39→22:12)
[2019-05-04 06:40] LABS: Bedside Glucose 105 mg/dL (70-110)
[2019-05-04 07:03] LABS: Hematocrit 40.2 % (40-54); Mean Corp Hgb Conc 29.9 g/dL (32-36); Mean Corpuscular Hgb 23.1 pg (27.0-32.0); Mean Corpuscular Volume 77.3 fL (80-94); Mean Platelet Vol. 9.1 fl (6.2-12.0); Platelet Count 383 K/mm3 (150-450); RBC Distribution Width CV 18.6 % (11.6-14.6); RBC Distribution Width SD 50.9 fl (35.1-43.9); White Blood Count 7.8 K/mm3 (4.4-11.0)
--- NOTE | 2019-05-04 07:03 | PCM.PN.SRG ---
Subjective: Patient bowel prep still dark with occasional solid. Will postpone colonoscopy until tomorrow. Patient did have a small amount of blood with more recent bowel movements but not with the initial. - Physical Exam General: Alert, Oriented x3, Cooperative, No apparent distress Lungs: Normal air movement Abdomen: Soft, Non Tender, Distended - Mild Vital Signs Temp Pulse Resp BP Pulse Ox 98.5 F 79 18 159/90 H 98 05/04/19 02:34 05/04/19 03:00 05/04/19 02:34 05/04/19 02:34 05/04/19 02:34 Oxygen Delivery Method Room Air Weight: 141 lb 15.643 oz Body Mass Index (BMI) 22.2 Finger Stick Blood Glucose 339 Intake and Output for Last 24 Hours 05/02/19 05/03/19 05/04/19 23:59 23:59 23:59 Intake Total 835 / 935 3820.00 / 3820.00 1146.67 / 1146.67 Output Total 975 / 975 Balance 835 / 935 2845.00 / 2845.00 1146.67 / 1146.67 Laboratory Tests Past 24 Hrs 05/03/19 05/03/19 05/03/19 02:59 02:59 12:55 WBC 6.4 RBC 4.79 Hgb 10.8 L Hct 36.5 L MCV 76.2 L MCH 22.5 L MCHC 29.6 L RDW Std Deviation 51.4 H RDW Coeff of Maia 18.8 H Plt Count 314 MPV 8.8 Immature Gran % (Auto) 0.300 Neut % (Auto) 65.6 Lymph % (Auto) 21.7 [place] % (Auto) 11.3 H Eos % (Auto) 0.8 Baso % (Auto) 0.3 Absolute Neuts (auto) 4.2 Absolute Lymphs (auto) 1.38 Nucleated RBC % 0 Retic Count Immature Retic Fraction Retic Hgb Equivalent PT INR APTT Sodium Potassium Chloride Carbon Dioxide Anion Gap BUN Creatinine Est GFR (MDRD) Af Amer Est GFR (MDRD) Non-Af BUN/Creatinine Ratio Glucose Calcium Phosphorus Magnesium Iron 24 L TIBC 327 Iron Saturation 7.3 L Ferritin 8 L Total Bilirubin AST ALT Alkaline Phosphatase Total Protein Albumin Blood Type A NEGATIVE Antibody Screen NEGATIVE Crossmatch See Detail 05/03/19 05/03/19 05/04/19 12:55 17:40 05:40 WBC Pending RBC Pending Hgb Pending Hct Pending MCV Pending MCH Pending MCHC Pending RDW Std Deviation Pending RDW Coeff of Maia Pending Plt Count Pending MPV Immature Gran % (Auto) Neut % (Auto) Lymph % (Auto) [place] % (Auto) Eos % (Auto) Baso % (Auto) Absolute Neuts (auto) Absolute Lymphs (auto) Nucleated RBC % Retic Count 0.79 Immature Retic Fraction 42.30 H Retic Hgb Equivalent 23.0 L PT 13.3 INR 1.0 APTT 40.7 H Sodium Potassium Chloride Carbon Dioxide Anion Gap BUN Creatinine Est GFR (MDRD) Af Amer Est GFR (MDRD) Non-Af BUN/Creatinine Ratio Glucose Calcium Phosphorus Magnesium Iron TIBC Iron Saturation Ferritin Total Bilirubin AST ALT Alkaline Phosphatase Total Protein Albumin Blood Type Antibody Screen Crossmatch 05/04/19 05:40 WBC RBC Hgb Hct MCV MCH MCHC RDW Std Deviation RDW Coeff of Maia Plt Count MPV Immature Gran % (Auto) Neut % (Auto) Lymph % (Auto) [place] % (Auto) Eos % (Auto) Baso % (Auto) Absolute Neuts (auto) Absolute Lymphs (auto) Nucleated RBC % Retic Count Immature Retic Fraction Retic Hgb Equivalent PT INR APTT Sodium Pending Potassium Pending Chloride Pending Carbon Dioxide Pending Anion Gap Pending BUN Pending Creatinine Pending Est GFR (MDRD) Af Amer Pending Est GFR (MDRD) Non-Af Pending BUN/Creatinine Ratio Pending Glucose Pending Calcium Pending Phosphorus Pending Magnesium Pending Iron TIBC Iron Saturation Ferritin Total Bilirubin Pending AST Pending ALT Pending Alkaline Phosphatase Pending Total Protein Pending Albumin Pending Blood Type Antibody Screen Crossmatch POC Glucose 05/04/19 05/03/19 05/03/19 06:32 22:00 17:41 POC Glucose 105 226 H 324 H 05/03/19 11:18 POC Glucose 203 H Medical Necessity - Tobacco Use Smoking Status: Never smoker Assessment/Plan All Active Problems (Last Reviewed 10/01/18 @ 13:13 by Patsy Joya) Peripheral vascular disease (Acute) Hyperlipidemia (Acute) Ischemic cardiomyopathy (Acute) TIA (transient ischemic attack) (Acute) Spinal stenosis (Acute) 63-year-old male with bright red blood per rectum, anemia?patient currently getting 2 units packed red blood cells, suspicious nodularity on rectal exam possible IBD versus mass Bowel prep still dark with occasional solid. We will plan for colonoscopy tomorrow at 8 AM we will continue prep today. Keisha Dillard M.D. Pager: [phone] [facility] [address] [place] [address], [address], [address] [place] [address] Office: [phone] Code Visit Inpatient E&M: [id number] Subs Hosp L1
[2019-05-04 07:28] LABS: ALB/GLOB Ratio 0.8 RATIO (0.9-2.4); AST(SGOT) 25 U/L (15-37); Alanine Aminotransfer ALT/SGPT 19 U/L (16-61); Albumin, Serum 3.5 g/dL (3.2-5.0); Alkaline Phosphatase 92 U/L (45-117); Anion Gap 7 (5-15); BUN 15 mg/dL (7-18); BUN/Creat Ratio 16.7 RATIO (10-20); Chloride 103 mmol/L (98-107); EST Glomerular Filtration Rate 91 mL/min (>60); Est Glom Filt Rate - Afr Amer 111 mL/min (>60); Estimated Creatinine Clearance 78.51 ml/min; Globulin 4.3 g/dL (2.2-4.2); Glucose 97 mg/dL (74-106); Magnesium 2.5 mg/dL (1.6-2.6); Phosphorus 3.4 mg/dL (2.5-4.9); Potassium 4.1 mmol/L (3.5-5.1); Protein, Total 7.8 g/dL (6.4-8.2); Sodium Level 141 mmol/L (136-145)
[2019-05-04] MEDS: Metoprolol Tartrate 25 MG Tablet 12.5 MG PO ×2 (10:18→22:11)
[2019-05-04] MEDS: Pantoprazole Sodium 20 MG Tablet PO (10:18)
[2019-05-04] MEDS: Magnesium Citrate 300 ML PO (10:20)
[2019-05-04 12:36] LABS: Bedside Glucose 79 mg/dL (70-110)
[2019-05-04 16:31] LABS: Bedside Glucose 164 mg/dL (70-110)
[2019-05-04] MEDS: Insulin Lispro 100 UNIT/ML INSULN.PEN SC (17:40)
--- NOTE | 2019-05-04 18:11 | PN_ITS ---
Subjective: All events of the past 24 hours of been reviewed. Patient remains afebrile and hemodynamically stable. Patient still had some solid particles in his bowel movement today and colonoscopy was canceled and will be rescheduled for tomorrow. All lab was personally reviewed. Hemoglobin today is 12.0 and platelets and white blood cell count are within normal limits. BMP shows a creatinine of 0.9, down from 1.82 at admission. LFTs are unremarkable. Magnesium and phosphorus are within normal limits. Blood sugars are coming under better control. He denies abdominal pain and also denies nausea, vomiting. He denies chest pain and shortness of breath. His only complaint today is that he is very tired. Objective: GENERAL: alert, oriented X 3, Cooperative, NAD ORAL: dry mucosa, no mucosal lesions NECK: No JVD, supple, trachea midline LUNGS: CTA, symmetric chest expansion HEART: RRR, Normal S1 and S2, no rub, no gallop ABDOMEN: soft, NT, ND, BS present, no guarding with palpation EXTREMITIES: no edema, no cyanosis, no calf tenderness SKIN: No rashes, no breakdown NEUROLOGIC: no focal neurologic deficits PSYCH: appropriate, normal affect, pleasant - Physical Exam Vital Signs Temp Pulse Resp BP Pulse Ox 98.0 F 88 16 117/71 95 05/04/19 12:27 05/04/19 13:33 05/04/19 12:27 05/04/19 12:27 05/04/19 12:27 Oxygen Delivery Method Room Air Weight: 141 lb 15.643 oz Body Mass Index (BMI) 22.2 Finger Stick Blood Glucose 339 Intake and Output for Last 24 Hours 05/02/19 05/03/19 05/04/19 23:59 23:59 23:59 Intake Total 835 / 935 3820.00 / 3820.00 2045.00 / 2045.00 Output Total 975 / 975 Balance 835 / 935 2845.00 / 2845.00 2045.00 / 2045.00 Laboratory Tests Past 24 Hrs 05/04/19 05/04/19 05:40 05:40 WBC 7.8 RBC 5.20 Hgb 12.0 L Hct 40.2 MCV 77.3 L MCH 23.1 L MCHC 29.9 L RDW Std Deviation 50.9 H RDW Coeff of Maia 18.6 H Plt Count 383 MPV 9.1 Sodium 141 Potassium 4.1 Chloride 103 Carbon Dioxide 31.0 Anion Gap 7 BUN 15 Creatinine 0.90 Estim Creat Clear Calc 78.51 Est GFR (MDRD) Af Amer 111 Est GFR (MDRD) Non-Af 91 BUN/Creatinine Ratio 16.7 Glucose 97 Calcium 9.0 Phosphorus 3.4 Magnesium 2.5 Total Bilirubin 0.50 AST 25 ALT 19 Alkaline Phosphatase 92 Total Protein 7.8 Albumin 3.5 Globulin 4.3 H Albumin/Globulin Ratio 0.8 L POC Glucose 05/04/19 05/04/19 05/04/19 16:23 12:25 06:32 POC Glucose 164 H 79 105 05/03/19 22:00 POC Glucose 226 H Medical Necessity - Tobacco Use Smoking Status: Never smoker Assessment/Plan All Active Problems (Last Reviewed 10/01/18 @ 13:13 by Patsy Joya) Peripheral vascular disease (Acute) Hyperlipidemia (Acute) Ischemic cardiomyopathy (Acute) TIA (transient ischemic attack) (Acute) Spinal stenosis (Acute) Impressions 1. Syncope likely secondary to dehydration/lower GI bleed with decrease intravascular volume. 2. Microcytic anemia secondary to iron deficiency with a ferritin of 8. Will give iron sucrose 200 X 3 days 3. Acute kidney injury-secondary to dehydration - resolved 4. Chronic GI blood loss over the past year - suspect malignancy 5. Nodularity in the rectum possibly secondary to rectal CA-seen by Dr. Dillard and plan is for colonoscopy. 6. Diabetes mellitus type 2/hypertension/hyperlipidemia/coronary artery disease with history of a 5 vessel CABG/anxiety/GERD?peripheral vascular disease- complicates care, management and prognosis 7. DVT prophylaxis with SCDs, relative contraindication for pharmacologic prophylaxis secondary to GI bleeding continue bowel prep with colonoscopy in the AM with Dr. Dillard He was hypoglycemic today so will decrease the sliding scale insulin to medium dosing and decrease the at bedtime Lantus to 60 units. Code Visit Inpatient E&M: [id number] Subs Hosp L2
[2019-05-04] MEDS: DULoxetine Hcl 60 MG Capsule PO (22:10)
[2019-05-04] MEDS: Atorvastatin Calcium 40 MG Tablet PO (22:11)
[2019-05-04 22:25] LABS: Bedside Glucose 196 mg/dL (70-110)
[2019-05-04] MEDS: hydrALAZINE 20 MG/ML Vial IV (22:40)
[2019-05-04] MEDS: Acetaminophen 325 MG Tablet 650 MG PO (22:40)
[2019-05-04] MEDS: 0.9% NaCl Peripheral Flush Adult/Peds IV (22:41)
[2019-05-05] VITALS (10 sets, daily range): BP systolic 119–179; BP diastolic 60–91; PULSE 83–98; RESP 16–18; TEMP 36.5–37; O2SAT 94–98
--- NOTE | 2019-05-05 | IMM_PTH ---
PATIENT: MITCH VEGA LOC: U U#:[id number] AGE/SX: 63/M ROOM: [facility] RE05/02/[address]: Dr. Oliver Rodriguez MD : 1955 BED: 1 DIS: 05/05/2019 SPEC #: [id number] RECD: 05/07/19 12:30 STATUS: NILDA RERosey #: [id number] MORRO: 05/05/19 00:[address]: Keisha Dillard DEPT: IMMUNOHISTOCHEMISTRY RECD BY: Shanda Alexander ENTERED: 05/07/19 12:32 SP TYPE: IMMUNO OTHR DR: MD Dr. Oliver Garner MD Tissues: E - Rectum, NOS Procedures: MSH2 (add) MLH-1 (add) MSH6 (add) Anti-PMS2 (add) MARSH-2 (initial) KI-67 (add) P53 (add) PHYSICIAN & INSTITUTION [place] [address] SPECIMEN INFORMATION: Tissue Source: E - Rectal mass biopsy Clinical Info: Rectal bleeding Specimen Number: [id number] CPT code: 12112, 00849 x6 METHODOLOGY: Deparaffinized sections of prefer/formalin-fixed tissue or PAP/DQ stained slides are incubated with monoclonal/polyclonal antibodies/oligonucleotide probes. Localization is made via biotin free immunoperoxidase method. Appropriate controls are performed and reacted as expected. Results on target cell population are indicated in the following table: RESULTS: ANTIBODY / CLONE RESULT Block E Ki-67 (30-9) positive, high P53 (DO-7) negative MARSH-2 (SP21) positive MLH-1 (M1) positive MSH2 (25D12) positive MSH6 (44) positive PMS2 ([id number]) positive These tests were developed and their performance characteristics determined by [facility]. They may not have been cleared or approved by the U.S. Food and Drug Administration. The FDA has determined that such clearance or approval is not necessary. The above immunohistochemical/dualISH markers are ordered and reviewed by the pathologist. INTERPRETATION: E. Rectal mass, biopsy: Invasive mucinous adenocarcinoma. Result of Microsatellite Instability Study: Negative (no loss of mismatch protein; no microsatellite instability detected). SJ:alejandro 05/08/19
[2019-05-05 05:48] LABS: Hematocrit 37.8 % (40-54); Hemoglobin 11.3 g/dL (13.0-16.5)
[2019-05-05] MEDS: 0.9% Normal Saline 1,000 ML 100 ML IV ×2 (06:37→10:06)
[2019-05-05] MEDS: Dextrose 50%-Water 25 GM/50 ML DISP.SYRIN IV (06:45)
[2019-05-05 07:15] LABS: Bedside Glucose 128 mg/dL (70-110)
[2019-05-05 07:15] LABS: Bedside Glucose 62 mg/dL (70-110)
--- NOTE | 2019-05-05 07:34 | NURSING ---
OFf the floor at this time. In Endo for procedure.
--- NOTE | 2019-05-05 07:35 | PCM.PN.SRG ---
Subjective: Per patient and nursing prep is still darker however it is all liquid no solids seen yesterday. Patient did have blood glucose in the 60s and was given D50 this morning. - Physical Exam General: Alert, Oriented x3, Cooperative, No apparent distress Lungs: Normal air movement Cardiovascular: Regular rate Abdomen: Soft, Non Tender, Non-Distended Vital Signs Temp Pulse Resp BP Pulse Ox 98.6 F 98 18 137/70 H 98 05/05/19 05:00 05/05/19 05:00 05/05/19 05:00 05/05/19 05:00 05/05/19 05:00 Oxygen Delivery Method Room Air Weight: 141 lb 15.643 oz Body Mass Index (BMI) 22.2 Finger Stick Blood Glucose 339 Intake and Output for Last 24 Hours 05/03/19 05/04/19 05/05/19 23:59 23:59 23:59 Intake Total 3820.00 / 3820.00 3920.00 / 5420.00 2370 / 2370 Output Total 975 / 975 675 / 675 Balance 2845.00 / 2845.00 3920.00 / 5420.00 1695 / 1695 Laboratory Tests Past 24 Hrs 05/05/19 05:35 Hgb 11.3 L Hct 37.8 L POC Glucose 05/05/19 05/05/19 05/04/19 07:05 06:34 22:08 POC Glucose 128 H 62 L 196 H 05/04/19 05/04/19 16:23 12:25 POC Glucose 164 H 79 Medical Necessity - Tobacco Use Smoking Status: Never smoker Assessment/Plan All Active Problems (Last Reviewed 10/01/18 @ 13:13 by Patsy Joya) Peripheral vascular disease (Acute) Hyperlipidemia (Acute) Ischemic cardiomyopathy (Acute) TIA (transient ischemic attack) (Acute) Spinal stenosis (Acute) 63-year-old male with bright red blood per rectum, anemia?patient got 2 units packed red blood cells, suspicious nodularity on rectal exam possible IBD versus mass We will proceed with a colonoscopy this morning patient is had no further questions this time. Keisha Dillard M.D. Pager: [phone] [facility] [address] [place] [address], Outpatient Pavilion, [address] [place] [address] Office: [phone]
--- NOTE | 2019-05-05 08:05 | COLBX_PTH ---
PATIENT: MITCH VEGA LOC: [facility] U#:[id number] AGE/SX: 63/M ROOM: [facility] RE05/02/[address]: Dr. Oliver Rodriguez MD : 1955 BED: 1 DIS: 05/05/2019 SPEC #: [id number] RECD: 05/05/19 10:50 STATUS: NILDA LOIDA #: [id number] MORRO: 05/05/19 08:[address]: Keisha Dillard DEPT: SURGICAL PATHOLOGY RECD BY: Jayant Landeros ENTERED: 05/06/19 11:34 SP TYPE: COLON BX OTHR DR: MD Dr. Oliver Garner MD Tissues: A - Cecum, NOS B - Descending colon C - Descending colon D - Sigmoid colon biopsy E - Rectum, NOS Procedures: Surgery Specimen Level IV HEADER OPERATION: Colonoscopy (MAC) PRE-OP DIAGNOSIS: Rectal bleeding TISSUE SUBMITTED: A - Cecal mass biopsy, B - Descending colon polyp, C - Descending colon polyp?#2, D - Sigmoid colon polyp, E - Rectal mass biopsy MICROSCOPIC DIAGNOSIS A. Cecal mass, biopsy: Tubulovillous adenoma. Negative for malignancy. See comment. B. Descending colon polyp, biopsy: Fragments of tubular adenoma. Fragments of fecal material. C. Descending colon polyp #2, biopsy: Fragments of tubular adenoma. Fragments of fecal material. D. Sigmoid colon polyp, biopsy: Fragments of tubular adenoma. E. Rectal mass, biopsy: Invasive mucinous adenocarcinoma. See comment. SJ:rg 05/07/19 COMMENT A. Correlation with clinical, radiologic findings and appropriate follow up are necessary. Rebiopsy is suggested if clinically indicated. E. Immunohistochemistry ([id number]) for mismatch repair of protein (microsatellite instability) will be performed and results will be reported separately. Case has been reviewed in consultation with Dr. Juarez who concurs with the above diagnosis. IDC:AM MICROSCOPIC DESCRIPTION Slides are reviewed. GROSS DESCRIPTION A - Received in fixative is one container labeled with the patient's name and designated cecal mass biopsy. The specimen consists of one irregular fragment of light metcalf soft tissue that measures 0.5 x 0.5 x 0.1 cm. The specimen is totally submitted in one cassette. B - Received in fixative is one container labeled with the patient's name and designated descending colon polyp. The specimen consists of multiple irregular fragments of light metcalf soft tissue that in aggregate measure 1 x 0.5 x 0.1 cm. The specimen is totally submitted in one cassette. C - Received in fixative is one container labeled with the patient's name and designated descending colon polyp. The specimen consists of multiple irregular fragments of light metcalf soft tissue that in aggregate measure 0.8 x 0.7 x 0.2 cm. The specimen is totally submitted in one cassette. D - Received in fixative is one container labeled with the patient's name and designated sigmoid colon polyp. The specimen consists of multiple irregular fragments of light metcalf soft tissue that in aggregate measure 1 x 0.6 x 0.1 cm. The specimen is totally submitted in one cassette. E - Received in fixative is one container labeled with the patient's name and designated rectal mass biopsy. The specimen consists of multiple irregular fragments of light metcalf soft tissue that in aggregate measure 1 x 0.3 x 0.1 cm. The specimen is totally submitted in one cassette. / AM:alejandro 05/06/19 TC:[facility]: [id number] x5 ADDENDUM ADDENDUM ADDENDUM ADDENDUM ADDENDUM ADDENDUM ADDENDUM ADDENDUM ADDENDUM ADDENDUM ADDENDUM ADDENDUM ADDENDUM 05/24/2019 10:59 ADDENDUM 05/24/2019 10:59 ADDENDUM 05/24/2019 10:59 ADDENDUM 05/24/2019 10:59 ADDENDUM 05/24/2019 10:59 This addendum is added to incorporate an outside pathology consultation report. The case was examined at [facility] (#[id number]) and the following diagnosis was rendered. A. Cecal mass biopsy: Tubulovillous adenoma. B. Descending colon polyp, biopsy: Tubular adenoma. C. Descending colon polyp #2, biopsy: Tubular adenoma. D. Sigmoid colon polyp, biopsy: Tubular adenoma. E. Rectal mass, biopsy: Invasive adenocarcinoma with mucinous features. Please see complete above mentioned consultation report in EMR
--- NOTE | 2019-05-05 08:47 | OP.ENDO_ITS ---
05/05/2019 Kendy Modi [address] [place] [address] Re : Colonoscopy procedure for Yony Grimaldoncer Dear Dr. Modi This procedure was performed on Sunday, May 05, 2019. My impressions and recommendations are as follows: Impressions : - Rectal mass 0.5 cm from the anal verge. - Two 5 to 6 mm polyps in the descending colon, removed with a hot snare. Resected and retrieved. - One less than 5 mm polyp in the sigmoid colon, removed with a cold biopsy forceps. Resected and retrieved. - One 6 to 9 mm polyp in the cecum. Biopsied. - Likely malignant partially obstructing tumor in the rectum. Biopsied. - Malignant-appearing tumor in the colon. Biopsied. Recommendations : - [facility]. - Resume previous diet. - Continue present medications. - Await pathology results. - Refer to a colo-rectal surgeon at appointment to be scheduled. - Refer to a supervisor twisting department to be schedule for incomplete cecal polypectomy. - Repeat colonoscopy at appointment to be scheduled cecal polyp resection. My findings are described in the full procedure note, which is enclosed. If I can be of further assistance, please feel free to contact me at Doctor phone number(s): , Work: . Sincerely, MD Keisha Campuzano MD 05/05/2019 8:47:28 AM This report has been signed electronically.
--- NOTE | 2019-05-05 09:32 | PCM.PN.BLA ---
Progress Note Colonoscopy showed a rectal mass likely malignant- biopsies taken. Pt also had several polyps removed but in cecum there was a broad based so only biopsied and will need repeat colonoscopy for removal. Will plan to refer to GI and colorectal surgeon- can d/w pt as an outpt as well on Monday if he leaves today. Will d/w Dr. Rodriguez about anticoagulation as he was normally on asa and plavix, ok for asa continued.
[2019-05-05] MEDS: Metoprolol Tartrate 25 MG Tablet 12.5 MG PO (10:01)
[2019-05-05] MEDS: Pantoprazole Sodium 20 MG Tablet PO (10:02)
--- NOTE | 2019-05-05 11:18 | DCINST_ITS ---
You will use the following diet at home:: Cardiac Your food should be the consistency of: Regular Your liquids should be the consistency of: Regular/Thin Discharge Activity: Return to Normal Activity Call your doctor if you observe: Fever of 101 or Higher, Shortness of breath, Dizziness, Fainting spells, Swelling in the ankles, Chest pain, Increased palpitations (irregular heartbeat) Allergies/Adverse Reactions: Allergies No Known Allergies Allergy (Verified 10/01/18 13:21) Medications to take at Discharge Aspirin 81 mg PO DAILY 03/20/16 Duloxetine HCl 60 mg PO DAILY 03/20/16 nitroglycerin 0.4 mg sublingual tablet 0.4 mg SUBLINGUAL Q5-15M PRN 03/02/18 insulin lispro (U-100) 100 unit/mL subcutaneous pen See Rx Instructions SC .COMPLEX #60 ml 04/02/18 omeprazole 20 mg capsule,delayed release 20 mg PO DAILY #90 cap 10/01/18 lisinopril 10 mg tablet 10 mg PO DAILY #90 tab 02/26/19 rosuvastatin 20 mg tablet 20 mg PO DAILY #90 tab 02/26/19 hydrochlorothiazide 12.5 mg capsule 12.5 mg PO DAILY #90 cap 02/27/19 Cbd Oil 1 dose PO BID PRN PRN 05/02/19 Insulin Detemir [Levemir FlexPen] 70 unit SUBCUT QHS 05/02/19 Metoprolol Tartrate 12.5 mg PO BID 05/02/19 Primary Care Physician: Kendy Modi MD [Primary Care Provider] - Please follow up with your Primary Care Physician in: 3-5 days Test Results: Test results from this visit will be discussed in further detail at your follow- up appointment, if applicable. Please Follow Up With: Keisha Dillard MD When: 05/06/2019
[2019-05-05 11:35] LABS: Bedside Glucose 165 mg/dL (70-110)
--- NOTE | 2019-05-05 12:05 | PCM.DC.SUM ---
Discharge Date and Diagnosis Date of Admission: 05/02/19 Date of Discharge: 05/05/19 - Secondary Discharge Diagnosis Chronic Problems (Last Reviewed 10/01/18 @ 13:13 by Patsy Joya) Obstructive sleep apnea (Chronic) Dizziness and giddiness (Chronic) Long-term current use of high risk medication other than anticoagulant (Chronic) Central sleep apnea (Chronic) Nocturnal hypoxia (Chronic) Restrictive lung disease (Chronic) Type 2 diabetes mellitus (Chronic) Anxiety disorder (Chronic) GERD (gastroesophageal reflux disease) (Chronic) Carotid artery disease (Chronic) S/P right and left heart catheterization (Chronic 01/22/15) History of coronary artery stent placement (Chronic 01/02/15) [id number] 01/02/15 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) H/O coronary artery bypass surgery (Chronic 05/30/08) CABG x 5 05/30/2008 ZUNIGA-LAD and D1, Free KIMBERLYN-PDA, SVG-Ramus, SVG-OM1 Peripheral vascular occlusive disease (Chronic) CVA (cerebral vascular accident) (Chronic) cerebellar stroke Right endarterectomy Diabetes (Chronic) Dx : 2007 Last exacerbation : DKA : never Hypoglycemic episode : never ER visit : never HTN (hypertension) (Chronic) Dyslipidemia (Chronic) ALEJANDRO (obstructive sleep apnea) (Chronic) Dizziness (Chronic) Hospital Course and Treatment Imaging Results: Colonoscopy: Impressions : - Rectal mass 0.5 cm from the anal verge. - Two 5 to 6 mm polyps in the descending colon, removed with a hot snare. Resected and retrieved. - One less than 5 mm polyp in the sigmoid colon, removed with a cold biopsy forceps. Resected and retrieved. - One 6 to 9 mm polyp in the cecum. Biopsied. - Likely malignant partially obstructing tumor in the rectum. Biopsied. - Malignant-appearing tumor in the colon. Biopsied. Recommendations : - [facility] patient to [facility] for ongoing care. - Resume previous diet. - Continue present medications. - Await pathology results. - Refer to a colo-rectal surgeon at appointment to be scheduled. - Refer to a continuous process rotary drum tanner to be schedule for incomplete cecal polypectomy. Consults: General Surgery Operations: None Procedures: Colonoscopy Summary of Care Provided: Per HPI: The patient is a 63 year old M with PMH as below who presents with a syncopal episode that happened this afternoon. He states that he went to his eye doctor's office for an exam for bleed in his left eye. He left and as has he was walking to the car he got lightheaded and dizzy and his was able to get him into a chair next to the car and he passed out for a short time. He did not have any post ictal type symptoms, and there is no seizure-like activity. He states that he has been having episodes of blood clots and bright red blood per his rectum since last April, but he has not wanted to have it checked out by a doctor. He 63 years old and is never had a colonoscopy before. He thinks that his bleeding is related to hemorrhoids. He denies any hematemesis. In the ER he was found to have a hemoglobin of 10, and was also orthostatic. He was given IV fluids and was admitted for syncopal evaluation. Hospital Course: 1. Syncope with dehydration or lower GI bleed leading to blood loss and iron deficiency anemia/rectal malignancy/[id number]-old male who is been bleeding for about a year presents to the hospital with an episode of syncope. He was found to have a hemoglobin of 10, however he is dehydrated and when he was given IV fluids his hemoglobin dropped to 8.3. He was transfused 2 units and seen by general surgery. He was prepped and had a colonoscopy on the day of discharge which demonstrated a rectal malignancy. He will need to follow-up with general surgery as an outpatient for a GI referral and further imaging studies, a CEA is pending. He also had iron studies which demonstrated an iron deficiency anemia with a ferritin of 8. He was given a dose of iron sucrose on the day of discharge and he can follow-up as an outpatient with his primary care physician for further iron infusions. In the meantime we will start him on oral iron replacement and vitamin C since he is on a PPI. I discussed the discharge plan with the patient and family, they understood the risks and benefits and were okay with going home today. 2. CAD status post stents and CABG/HTN/HLD/history of CVA-on admission his aspirin and Plavix were held given his acute GI bleed, it was found that this was secondary to a rectal malignancy. He can restart his aspirin but would continue to hold his Plavix until definitive treatment. His stents were several years ago and therefore this should not be an issue. 3. His other medical diagnoses were evaluated and his home medications were continued where appropriate Objective: General: Alert, Oriented x3, Cooperative, No apparent distress, - - Pale HEENT: Atraumatic, PERRLA, EOMI, Normocephalic Oral: Dry Mucosa Neck: Supple, No JVD Lungs: Clear to auscultation, Normal air movement, No rhonchi, No wheeze, No rales Cardiovascular: Regular rate, Regular Rhythm, Normal S1, Normal S2, No murmurs Abdomen: Soft, Non Tender, Non-Distended, No Hepato-splenomegaly Extremities: No edema, Capillary Refill Less than 3 Seconds Skin: No rashes, No breakdown Neurological: Motor Exam 5/5 strength throughout, Sensory exam intact to light touch and pain Psych/Mental Status: Normal Affect, Appropriate - Physical Exam Vital Signs Temp Pulse Resp BP Pulse Ox 98.1 F 95 16 179/83 H 97 05/05/19 09:43 05/05/19 10:01 05/05/19 09:43 05/05/19 10:01 05/05/19 09:43 Oxygen Delivery Method Room Air Weight: 141 lb 15.643 oz Body Mass Index (BMI) 22.2 Finger Stick Blood Glucose 339 Intake and Output for Last 24 Hours 05/03/19 05/04/19 05/05/19 23:59 23:59 23:59 Intake Total 3820.00 / 3820.00 3920.00 / 5420.00 3361.67 / 3361.67 Output Total 975 / 975 675 / 675 Balance 2845.00 / 2845.00 3920.00 / 5420.00 2686.67 / 2686.67 Laboratory Tests Past 24 Hrs 05/02/19 05/05/19 18:40 05:35 Hgb 11.3 L Hct 37.8 L Carcinoembryonic Ag Pending POC Glucose 05/05/19 05/05/19 05/05/19 11:32 07:05 06:34 POC Glucose 165 H 128 H 62 L 05/04/19 05/04/19 05/04/19 22:08 16:23 12:25 POC Glucose 196 H 164 H 79 Discharge Activity: Return to Normal Activity Call your doctor if you observe: Fever of 101 or Higher, Shortness of breath, Dizziness, Fainting spells, Swelling in the ankles, Chest pain, Increased palpitations (irregular heartbeat) Home Medications: Medications to take at Discharge Aspirin 81 mg PO DAILY 03/20/16 Duloxetine HCl 60 mg PO DAILY 03/20/16 nitroglycerin 0.4 mg sublingual tablet 0.4 mg SUBLINGUAL Q5-15M PRN 03/02/18 insulin lispro (U-100) 100 unit/mL subcutaneous pen See Rx Instructions SC .COMPLEX #60 ml 04/02/18 omeprazole 20 mg capsule,delayed release 20 mg PO DAILY #90 cap 10/01/18 lisinopril 10 mg tablet 10 mg PO DAILY #90 tab 02/26/19 rosuvastatin 20 mg tablet 20 mg PO DAILY #90 tab 02/26/19 hydrochlorothiazide 12.5 mg capsule 12.5 mg PO DAILY #90 cap 02/27/19 Cbd Oil 1 dose PO BID PRN PRN 05/02/19 Insulin Detemir [Levemir FlexPen] 70 unit SUBCUT QHS 05/02/19 Metoprolol Tartrate 12.5 mg PO BID 05/02/19 Ascorbic Acid [Vitamin C] 500 mg PO DAILY #30 tab.chew 05/05/19 Ferrous Sulfate 325 mg PO DAILY #30 tab 05/05/19 Primary Care Physician: Kendy Modi MD [Primary Care Provider] - Please follow up with your Primary Care Physician in: 3-5 days Please Follow Up With: Keisha Dillard MD When: 05/06/2019 Disposition: Home Minutes spent on discharge:: 35 Patient Condition:: Stable Medical Necessity - Tobacco Use Smoking Status: Never smoker Meaningful Use Info Meaningful Use Diagnoses (Choose all that apply): None applicable Code Visit OBSV E&M: 06474 Observation care discharge
[2019-05-07 13:48] LABS: Carcinoembryonic Antigen 35.8 ng/mL (0.0-4.7)
== END 2019-05-05 11:19 | disposition home or self-care (01) ==
LOC: ED 19:02 → PCU 20:35
PROVIDERS: Internal Medicine; Surgery; Admitting Provider Family Medicine; Emergency Provider Emergency Medicine; Family Provider Family Medicine; PCP Family Medicine; Visit Provider Family Medicine
PROC: 0DJD8ZZ Inspection of Lower Intestinal Tract, Via Natural or Artificial Opening Endoscopic (ICD-10-PCS; CPT 45378; principal; 2019-05-05 08:00)
DX: R55 Syncope and collapse (principal); D12.0 Benign neoplasm of cecum; D12.4 Benign neoplasm of descending colon; D12.5 Benign neoplasm of sigmoid colon; C20 Malignant neoplasm of rectum; N17.9 Acute kidney failure, unspecified; K92.2 Gastrointestinal hemorrhage, unspecified; D50.0 Iron deficiency anemia secondary to blood loss (chronic); E86.0 Dehydration; I10 Essential (primary) hypertension; I25.10 Atherosclerotic heart disease of native coronary artery without angina pectoris; E11.51 Type 2 diabetes mellitus with diabetic peripheral angiopathy without gangrene; E78.5 Hyperlipidemia, unspecified; E11.40 Type 2 diabetes mellitus with diabetic neuropathy, unspecified; K21.9 Gastro-esophageal reflux disease without esophagitis; I25.5 Ischemic cardiomyopathy; F41.9 Anxiety disorder, unspecified; G47.33 Obstructive sleep apnea (adult) (pediatric); Z79.899 Other long term (current) drug therapy; Z79.82 Long term (current) use of aspirin; Z79.02 Long term (current) use of 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/antiplatelets; Z79.4 Long term (current) use of insulin; Z95.1 Presence of aortocoronary bypass graft; Z87.19 Personal history of other diseases of the digestive system; K56.690 Other partial intestinal obstruction
CPT/HCPCS: 45380; 45385; 36415; 36430; 71045; 80048; 80053; 82378; 82728; 82962; 83540; 83550; 83735; 84100; 84484; 85014; 85018; 85025; 85027; 85045; 85610; 85730; 86850; 86900; 86901; 86920; 86922; 88305; 88341; 88342; 93005; 96361; 96365; 96375; 97162; 97166; 99218; 99285; J1756; J7030; J7040; P9016; A4216; G0378

== ENCOUNTER → 2019-05-10 15:26 | Outpatient (CLI) | payer BC, SELFPAY ==
[2019-05-04 22:27] VITALS: BMI 22.2
[2019-05-10 17:36] LABS: Absolute Lymphocyte Count 0.84 X10^3/uL (0.83-4.51); Absolute Neutrophil Count 5.4 X10^3/uL (2.0-7.7); Basophil# 0.02 X10^3/uL; Basophil% 0.3 % (0-1); Eosinophil# 0.07 X10^3/uL; Hematocrit 34.7 % (40-54); Hemoglobin 10.2 g/dL (13.0-16.5); Lymphocyte # 0.84 X10^3/ul (4.0); Lymphocyte % 12.3 % (19-41); Mean Corp Hgb Conc 29.4 g/dL (32-36); Mean Corpuscular Hgb 23.2 pg (27.0-32.0); Mean Platelet Vol. 9.5 fl (6.2-12.0); Monocyte# 0.46 X10^3/uL; Monocyte% 6.7 % (0-10); NRBC Flagged by Analyzer 0 % (0-5); Neutrophil # 5.42 X10^3/uL (2.7-7.7); Neutrophil % 79.3 % (47-70); POSITIVE MORPHOLOGY YES; Platelet Count 342 K/mm3 (150-450); RBC Distribution Width CV 20.8 % (11.6-14.6); RBC Distribution Width SD 57.3 fl (35.1-43.9); Red Blood Count 4.39 M/mm3 (4.6-6.2); White Blood Count 6.8 K/mm3 (4.4-11.0)
[2019-05-10 18:02] LABS: Differential Indicated SCAN CRITERIA MET
[2019-05-10 18:07] LABS: AST(SGOT) 14 U/L (15-37); Alanine Aminotransfer ALT/SGPT 20 U/L (16-61); Albumin, Serum 3.3 g/dL (3.2-5.0); Alkaline Phosphatase 96 U/L (45-117); Cholesterol 133 mg/dL (200); Globulin 3.4 g/dL (2.2-4.2); Hemoglobin A1c 8.1 % (4.2-6.3); High Density Lipoprotein 33 mg/dL; Protein, Total 6.7 g/dL (6.4-8.2); Triglycerides 173 mg/dL; Very Low Density Lipoprotein 35 mg/dL (5-40)
[2019-05-10 18:57] LABS: Anisocytosis 1+; Hypochromasia 1+; Microcytosis 1+; Platelet Estimate ADEQUATE (ADEQ)
== END ==
PROVIDERS: Family Provider Family Medicine; PCP Family Medicine; Referring Provider Family Medicine; Visit Provider Family Medicine
DX: E11.9 Type 2 diabetes mellitus without complications (principal); C19 Malignant neoplasm of rectosigmoid junction
CPT/HCPCS: 36415; 80061; 80076; 83036; 85025

== ENCOUNTER → 2019-08-22 11:05 | Outpatient (CLI) | payer BC, SELFPAY ==
[2019-05-04 22:27] VITALS: BMI 22.2
--- NOTE | 2019-08-22 11:07 | ART_ITS ---
Reason For Study: Claudicartion Procedure A bilateral lower extremity continuous wave Doppler with analog waveform analysis,segmental pressures,and ankle brachial indexes with exercise. Left Segmental Pressures Left brachial= 102mmHg. Left posterior tibial artery = 98mmHg. Left dorsalis pedis artery = 145mmHg. The left dorsalis pedis waveforms are biphasic. The left posterior tibial artery waveforms are biphasic. Right Segmental Pressures Right brachial= 115mmHg. Right posterior tibial artery = >254mmHg. Right dorsalis pedis artery = 123mmHg. The right dorsalis pedis waveforms are biphasic. The right posterior tibial artery waveforms are biphasic. Indices The right ankle brachial index by the dorsalis pedis is 1.07. The right ankle brachial index by the posterior tibial artery is NC. The right post exercise ankle brachial index is 0.35. The left ankle brachial index by the dorsalis pedis is 1.26. The left ankle brachial index by the posterior tibial artery is 0.85. The left post exercise ankle brachial index is 0.65. Interpretation Summary Bilateral lower extremity ankle-brachial indices are technically normal however there is indication of medial calcification of vessel wall and artificially elevated ABIs. Mild to moderate stenosis bilaterally would be based upon biphasic Doppler waveforms at bilateral posterior tibial and dorsalis pedis levels Digital waveforms are flattened bilaterally but essentially completely flat on the left consistent with severe disease/small vessel disease Exercise indices are abnormal bilaterally with failure of recovery bilaterally at 9 minutes Ordering Physician: Chris Biswas Referring Physician: Kendy Modi M.D. Performed By: Steffany Correa RVT
== END ==
LOC: CVS 11:06
PROVIDERS: Family Provider Family Medicine; PCP Family Medicine; Referring Provider Surgery; Visit Provider Surgery
DX: I73.9 Peripheral vascular disease, unspecified (principal)
CPT/HCPCS: 93924

== ENCOUNTER 2019-10-10 08:55 | Day surgery (SDC) | payer BC, SELFPAY ==
[2019-10-07 14:25] VITALS: BMI 22.2
--- NOTE | 2019-10-09 18:15 | PCM.HP.BLA ---
Problem List (1) Rectal cancer Status: Acute History and Physical Date of Admission: 10/09/19 [facility] [address] [place] [address] OFFICE VISIT Date of Service: 10/07/19 MR#:[id number] Name: MITCH VEGA Rep #:[id number] : 1955 Provider:Rosy Mattson PA-C Age/Sex: 63/M Location:[facility] Status:Signed Intake Vital Signs 10/07/19 Height 5 ft 6.5 in 10/07/19 Weight: 140 lb 10/07/19 BMI 22.2 10/07/19 BP 138/79 H 10/07/19 Blood Pressure Location Rt brachial 10/07/19 Position Sitting 10/07/19 Respiration 16 Intake Visit Reasons: PORT PLACEMENT Chief Complaint: syncopal Gut Cleaner Required: No Is patient in pain?: Yes (bilateral feet) Allergies No Known Allergies Allergy (Verified 10/09/19 11:05) Medications Aspirin 81 mg PO DAILY 03/20/16 [History Confirmed 10/09/19] Duloxetine HCl 60 mg PO DAILY 03/20/16 [History Confirmed 10/09/19] nitroglycerin 0.4 mg sublingual tablet 0.4 mg SUBLINGUAL Q5-15M PRN 03/02/18 [History Confirmed 10/09/19] insulin lispro 100 unit/mL subcutaneous pen See Rx Instructions SC .COMPLEX #60 ml 04/02/18 [Rx Confirmed 10/09/19] rosuvastatin 20 mg tablet 20 mg PO DAILY #90 tab 02/26/19 [Rx Confirmed 10/09/19] Insulin Detemir [Levemir FlexPen] 70 unit SUBCUT QHS 05/02/19 [History Confirmed 10/09/19] Ascorbic Acid [Vitamin C] 500 mg PO DAILY #30 tab.chew 05/05/19 [Rx Confirmed 10/09/19] metoprolol tartrate 25 mg tablet 12.5 mg PO BID #90 tab 09/26/19 [Rx Confirmed 10/09/19] omeprazole 20 mg capsule,delayed release 20 mg PO DAILY #90 cap 09/26/19 [Rx Confirmed 10/09/19] gabapentin 100 mg capsule 100 mg PO TID 10/07/19 [History Confirmed 10/09/19] Lisinopril [Prinivil] 2.5 mg PO DAILY 10/09/19 [History Confirmed 10/09/19] [facility] Medical History Rectal cancer (Acute) Obstructive sleep apnea (Chronic) Dizziness and giddiness (Chronic) Long-term current use of high risk medication other than anticoagulant (Chronic) Central sleep apnea (Chronic) Nocturnal hypoxia (Chronic) Restrictive lung disease (Chronic) Type 2 diabetes mellitus (Chronic) Anxiety disorder (Chronic) GERD (gastroesophageal reflux disease) (Chronic) Carotid artery disease (Chronic) 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) Peripheral vascular occlusive disease (Chronic) CVA (cerebral vascular accident) (Chronic) Diabetes (Chronic) HTN (hypertension) (Chronic) Dyslipidemia (Chronic) ALEJANDRO (obstructive sleep apnea) (Chronic) Dizziness (Chronic) Diabetic neuropathy (Acute) invasive rectal adenocarcinoma (Acute) Chronic back pain (Chronic) Surgical History S/P right and left heart catheterization (Chronic 01/22/15) History of coronary artery stent placement (Chronic 01/02/15) H/O coronary artery bypass surgery (Chronic 05/30/08) Excision Max.Zygoma Face Tumor (Chronic) History of herniorrhaphy (Chronic) History of right-sided carotid endarterectomy (Chronic) History of tonsillectomy (Chronic) PTCA Left Anterior Tibial and Paroneal Artery (Chronic) Family History Father CAD (coronary artery disease) Hypertension Cancer leukemia Diabetes Heart disease High cholesterol Mother CVA (cerebral vascular accident) Diabetes Breast cancer Brother Diabetes Social History (Updated 10/09/19 @ 18:14 by Rosy Mattson PA-C) Smoking Status: Never smoker second hand exposure: No alcohol intake: never substance use type: does not use caffeine: Yes what type of physical activity do you participate in: none HPI Surgical H&P: Yes HPI: MITCH VEGA, is a 63 M who presents to the office today in need of a port placement for chemotherapy. Patient has been diagnosed with rectal carcinoma. He had been on aspirin and clopidogrel but had to have the clopidogrel ceased. He has been undergoing neoadjuvant concurrent chemoradiation therapy for his rectal cancer. He has ongoing follow-up scheduled with Dr. Garcia at [facility]. Patient denies previous port placement. He denies central line placement and denies fractured clavicle previously. Patient is right hand dominant. Patient notes a previous right carotid endarterectomy in 2008. He notes previous CABG in 2007, stent placement in 2013. He notes stroke in 2008, 2014. 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 He denies previous complications with anesthesia. He notes history of sleep apnea. ROS General General: Yes fatigue and colon cancer; no weight change, appetite, breast cancer or weakness HEENT HEENT: Yes difficulty swallowing; no eye injury, eye surgery, swollen glands or hoarseness Endo Endocrine: Yes diabetes mellitus; no thyroid disease, thyroid cancer, Hair loss, heat intolerance or cold intolerance Skin Skin: No rash or changing moles Breast Breast: No left breast lump, right breast lump, nipple discharge, breast pain, abnormal mammogram, abnormal US or breast enlargement Musc Musculoskeletal: Yes back problems and arthritis; no rheumatoid arthritis, gout or joint pain Cardio Cardiovascular: Yes heart disease, high blood pressure, heart attack and heart stent; no murmur, pacemaker, atrial fibrillation, palpitations, shortness of breat with exertion or chest pain Psych Psychiatric: Yes depression and anxiety; no hearing voices Resp Respiratory: No shortness of breath, Yes sleep apnea, Yes cough, No COPD, No asthma, No emphysema, No wheezing Gastro Gastrointestinal: Yes abdominal pain, Yes nausea or vomiting, Yes diarrhea, Yes constipation, No blood in stool, Yes acid reflux, Yes hemorrhoids, No ulcers, No gallbladder problem, No black,tarry stools Jhony Hematologic: Yes blood thinners, No blood disorders, No bleeding, No anemia, No blood clots Neuro Neurologic: No weakness Exam Const General: cooperative, comfortable, no acute distress, frail appearing [facility] Head: normal to inspection Eyes General: appearance normal, both eyes and all related structures Neck Neck: other (right neck- nicely healed incision) Neck mass: No Chest Breast Palpation: No nipple discharge Resp Effort & Inspection: normal respiratory effort Auscultation: clear to auscultation bilaterally Cardio Rate: regular rate Rhythm: regular rhythm Heart Sounds: no murmurs GI Inspection: normal to inspection Palpation: soft Auscultation: normal bowel sounds Skin General: no rashes or lesions noted Neuro General: no focal motor deficits Extrem General: normal to inspection Psych Appearance: grossly normal Affect: normal affect Assessment & Plan Problems 1. Rectal cancer C20 Plan Dr. Biswas will plan to place a port-a-cath on the right possible left chest. Procedure details, risks and benefits have been explained to the patient. Patient has had the opportunity to ask and have questions answered. Patient verbally understands and agrees with the plan. Patient does not have a start date for his chemotherapy. Coding Level of Care Code Off vis,est,level 4 Diagnoses Rectal cancer C20 10/09/19 1814<Electronically signed by Rosy Mattson PA-C> Date Rosy Mattson PA-C
[2019-10-10] VITALS (13 sets, daily range): BP systolic 83–117; BP diastolic 49–78; PULSE 78–98; RESP 12–16; TEMP 36.2–36.3; O2SAT 94–99; BMI 22.8
--- NOTE | 2019-10-10 09:37 | PCM.HP.BLA ---
Problem List (1) Rectal cancer Status: Acute History and Physical Date of Admission: 10/10/19 Intake Visit Reasons: PORT PLACEMENT Chief Complaint: syncopal Food Service Ambassador Required: No Is patient in pain?: Yes (bilateral feet) Allergies No Known Allergies Allergy (Verified 10/09/19 11:05) Medications Aspirin 81 mg PO DAILY 03/20/16 [History Confirmed 10/09/19] Duloxetine HCl 60 mg PO DAILY 03/20/16 [History Confirmed 10/09/19] nitroglycerin 0.4 mg sublingual tablet 0.4 mg SUBLINGUAL Q5-15M PRN 03/02/18 [History Confirmed 10/09/19] insulin lispro 100 unit/mL subcutaneous pen See Rx Instructions SC .COMPLEX #60 ml 04/02/18 [Rx Confirmed 10/09/19] rosuvastatin 20 mg tablet 20 mg PO DAILY #90 tab 02/26/19 [Rx Confirmed 10/09/19] Insulin Detemir [Levemir FlexPen] 70 unit SUBCUT QHS 05/02/19 [History Confirmed 10/09/19] Ascorbic Acid [Vitamin C] 500 mg PO DAILY #30 tab.chew 05/05/19 [Rx Confirmed 10/09/19] metoprolol tartrate 25 mg tablet 12.5 mg PO BID #90 tab 09/26/19 [Rx Confirmed 10/09/19] omeprazole 20 mg capsule,delayed release 20 mg PO DAILY #90 cap 09/26/19 [Rx Confirmed 10/09/19] gabapentin 100 mg capsule 100 mg PO TID 10/07/19 [History Confirmed 10/09/19] Lisinopril [Prinivil] 2.5 mg PO DAILY 10/09/19 [History Confirmed 10/09/19] [facility] Medical History Rectal cancer (Acute) Obstructive sleep apnea (Chronic) Dizziness and giddiness (Chronic) Long-term current use of high risk medication other than anticoagulant (Chronic) Central sleep apnea (Chronic) Nocturnal hypoxia (Chronic) Restrictive lung disease (Chronic) Type 2 diabetes mellitus (Chronic) Anxiety disorder (Chronic) GERD (gastroesophageal reflux disease) (Chronic) Carotid artery disease (Chronic) 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) Peripheral vascular occlusive disease (Chronic) CVA (cerebral vascular accident) (Chronic) Diabetes (Chronic) HTN (hypertension) (Chronic) Dyslipidemia (Chronic) ALEJANDRO (obstructive sleep apnea) (Chronic) Dizziness (Chronic) Diabetic neuropathy (Acute) invasive rectal adenocarcinoma (Acute) Chronic back pain (Chronic) Surgical History S/P right and left heart catheterization (Chronic 01/22/15) History of coronary artery stent placement (Chronic 01/02/15) H/O coronary artery bypass surgery (Chronic 05/30/08) Excision Max.Zygoma Face Tumor (Chronic) History of herniorrhaphy (Chronic) History of right-sided carotid endarterectomy (Chronic) History of tonsillectomy (Chronic) PTCA Left Anterior Tibial and Paroneal Artery (Chronic) Family History Father CAD (coronary artery disease) Hypertension Cancer leukemia Diabetes Heart disease High cholesterol Mother CVA (cerebral vascular accident) Diabetes Breast cancer Brother Diabetes Social History (Updated 10/09/19 @ 18:14 by Rosy Mattson PA-C) Smoking Status: Never smoker second hand exposure: No alcohol intake: never substance use type: does not use caffeine: Yes what type of physical activity do you participate in: none HPI HPI HPI: MITCH VEGA, is a 63 M who presents to the office today for HPI HPI Surgical H&P: Yes HPI: MITCH VEGA, is a 63 M who presents to the office today in need of a port placement for chemotherapy. Patient has been diagnosed with rectal carcinoma. He had been on aspirin and clopidogrel but had to have the clopidogrel ceased. He has been undergoing neoadjuvant concurrent chemoradiation therapy for his rectal cancer. He has ongoing follow-up scheduled with Dr. Garcia at [facility]. Patient denies previous port placement. He denies central line placement and denies fractured clavicle previously. Patient is right hand dominant. Patient notes a previous right carotid endarterectomy in 2008. He notes previous CABG in 2007, stent placement in 2013. He notes stroke in 2008, 2014. 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 He denies previous complications with anesthesia. He notes history of sleep apnea. ROS General General: Yes fatigue and colon cancer; no weight change, appetite, breast cancer or weakness HEENT HEENT: Yes difficulty swallowing; no eye injury, eye surgery, swollen glands or hoarseness Endo Endocrine: Yes diabetes mellitus; no thyroid disease, thyroid cancer, Hair loss, heat intolerance or cold intolerance Skin Skin: No rash or changing moles Breast Breast: No left breast lump, right breast lump, nipple discharge, breast pain, abnormal mammogram, abnormal US or breast enlargement Musc Musculoskeletal: Yes back problems and arthritis; no rheumatoid arthritis, gout or joint pain Cardio Cardiovascular: Yes heart disease, high blood pressure, heart attack and heart stent; no murmur, pacemaker, atrial fibrillation, palpitations, shortness of breat with exertion or chest pain Psych Psychiatric: Yes depression and anxiety; no hearing voices Resp Respiratory: No shortness of breath, Yes sleep apnea, Yes cough, No COPD, No asthma, No emphysema, No wheezing Gastro Gastrointestinal: Yes abdominal pain, Yes nausea or vomiting, Yes diarrhea, Yes constipation, No blood in stool, Yes acid reflux, Yes hemorrhoids, No ulcers, No gallbladder problem, No black,tarry stools Jhony Hematologic: Yes blood thinners, No blood disorders, No bleeding, No anemia, No blood clots Neuro Neurologic: No weakness Exam Const General: cooperative, comfortable, no acute distress, frail appearing [facility] Head: normal to inspection Eyes General: appearance normal, both eyes and all related structures Neck Neck: other (right neck- nicely healed incision) Neck mass: No Chest Breast Palpation: No nipple discharge Resp Effort & Inspection: normal respiratory effort Auscultation: clear to auscultation bilaterally Cardio Rate: regular rate Rhythm: regular rhythm Heart Sounds: no murmurs GI Inspection: normal to inspection Palpation: soft Auscultation: normal bowel sounds Skin General: no rashes or lesions noted Neuro General: no focal motor deficits Extrem General: normal to inspection Psych Appearance: grossly normal Affect: normal affect Assessment & Plan Problems 1. Rectal cancer C20 Plan Dr. Biswas will plan to place a port-a-cath on the right possible left chest. Procedure details, risks and benefits have been explained to the patient. Patient has had the opportunity to ask and have questions answered. Patient verbally understands and agrees with the plan. Patient does not have a start date for his chemotherapy. Coding Level of Care Code Off vis,est,level 4 Diagnoses Rectal cancer C20 10/09/19 1814 <Electronically signed by Rosy Mattson PA-C> Date Rosy Mattson PA-C I have re-examined the patient. There are no clinical changes since date of exam.
[2019-10-10] MEDS: Lactated Ringers 1,000 ML 100 ML IV (09:42)
[2019-10-10 09:46] LABS: Bedside Glucose 194 mg/dL (70-110)
[2019-10-10] MEDS: Cefazolin 2 GM in 0.9% Normal Saline 100 ML IV (10:24)
[2019-10-10] MEDS: Bupivacaine Mpf 0.5% 30 ML VIAL (10:43)
--- NOTE | 2019-10-10 11:09 | DCINST_ITS ---
Discharge Diet: No Restrictions - Pain medication may cause nausea. You should typically eat light foods as you take your pain medication. Discharge Activity: Return to Normal Activity, May Shower - You may remove the plastic dressing in 3 days. Leave the Steri-Strips in place for an additional 1 week Additional Activity Instructions:: May not drive, work with heavy equipment, or sign legal documents for [address] if you are no longer taking narcotic pain medications. You may drive when you are no longer taking pain medications. Allergies/Adverse Reactions: Allergies No Known Allergies Allergy (Verified 10/09/19 11:05) Medications to take at Discharge Aspirin 81 mg PO DAILY 03/20/16 Duloxetine HCl 60 mg PO DAILY 03/20/16 nitroglycerin 0.4 mg sublingual tablet 0.4 mg SUBLINGUAL Q5-15M PRN 03/02/18 insulin lispro 100 unit/mL subcutaneous pen See Rx Instructions SC .COMPLEX #60 ml 04/02/18 rosuvastatin 20 mg tablet 20 mg PO DAILY #90 tab 02/26/19 Insulin Detemir [Levemir FlexPen] 70 unit SUBCUT QHS 05/02/19 Ascorbic Acid [Vitamin C] 500 mg PO DAILY #30 tab.chew 05/05/19 metoprolol tartrate 25 mg tablet 12.5 mg PO BID #90 tab 09/26/19 omeprazole 20 mg capsule,delayed release 20 mg PO DAILY #90 cap 09/26/19 gabapentin 100 mg capsule 100 mg PO TID 10/07/19 Lisinopril [Prinivil] 2.5 mg PO DAILY 10/09/19 Primary Care Physician: Kendy Modi MD [Primary Care Provider] - Test Results: Test results from this visit will be discussed in further detail at your follow- up appointment, if applicable. Please Follow Up With: Chris Biswas MD - [phone] When: Contact the office for any concerns
--- NOTE | 2019-10-10 11:12 | PCM.OPRPT ---
Problem List (1) Rectal cancer Status: Acute Report of Operation Date of Procedure: 10/10/19 Pre-Operative Diagnosis: Rectal cancer Post-Operative Diagnosis: Same Surgery/Procedure Performed:: Right internal jugular 6 [place] PowerPort placement. Reference #[id number]. Lot number [id number]. Expiry date 11/04/2020 Description of Surgical Findings:: Timeout and informed consent was obtained. 63-year-old gentleman was taken to the operating placement table underwent monitored anesthesia care. Ancef 2 g were given intravenously preoperatively. The right neck and chest were sterilely prepped and draped. Under ultrasound guidance 1% lidocaine mixed 50-50 with 0.5% Marcaine was used as local anesthetic. Total of 13 cc was used. Local was instilled under ultrasound guidance and a micropuncture needle was inserted under ultrasound guidance into the right internal jugular vein. Micropuncture wire inserted. Local was instilled down upon the chest wall and a transverse incision was made midclavicular line second intercostal space and electrocautery was used to make a subcutaneous pocket. The tubing was tunneled from the chest to the neck. Then the micropuncture sheath dilator was placed over the wire. 035 J-wire was inserted. The sheath dilator was inserted. The dilator and wire were removed. The catheter was advanced through the sheath. The sheath was split. The catheter was positioned at the SVC atrial junction. The catheter was amputated at length connected the port secured with a port attachment device. The port was placed in the pocket and secured there with a 2-0 silk. Skin edges approximated opted 3-0 Vicryl subdermal stitches. Neck was closed with interrupted 5-0 Vicryl. Steri-Strips Telfa OpSite dressings applied. The port was accessed and aspirated easily it was flushed with saline and then 2 cc of heparinized saline. Sponge and instrument and needle counts reported the surgeon be correct. Blood loss minimal. He tolerated the procedure well was taken to the recovery room. Stat portable chest x-ray is pending. Specimens none. Blood loss minimal. Drains none. Chris Biswas M.D., F.A.C.S. Type of Anesthesia:: Local MAC Anesthesiologist: Claire Burgos
--- NOTE | 2019-10-10 11:30 | RAD_ITS ---
STUDY: X-RAY CHEST REASON FOR EXAM: Male, 63 years old. POST PORT PLACEMENT TECHNIQUE: Single AP portable view of the chest. COMPARISON: Comparison is made with prior study dated May 02, 2019. FINDINGS: A right-sided portacatheter has been placed. The tip is within the right atrium. EKG lead to dressing. The lungs are clear and expanded. There is no demonstrated pleural abnormality. Sternal cerclage wires and vascular clips are present from a prior sternotomy and coronary artery bypass graft procedure (CABG). Normal mediastinum and ramses. Normal visualized pulmonary arteries. Normal visualized aortic arch and descending thoracic aorta. Normal visualized thoracic spine. Normal visualized ribs, clavicles, and shoulders. There is no demonstrated abnormality of the visualized soft tissue structures of the upper abdomen. RAD/CXR for Line Placement IMPRESSION: The tip of the right portacatheter is within the right atrium. Electronically Signed: Navdeep Gonzales, at 12:04 EST , Service support ,
== END 2019-10-10 13:18 | disposition home or self-care (01) ==
LOC: SDC 08:55 → AC 08:56
PROVIDERS: PCP Family Medicine; Referring Provider Surgery; Visit Provider Surgery
PROC: (CPT 36561; principal; 2019-10-10 10:45)
DX: Z45.2 Encounter for adjustment and management of vascular access device (principal); C20 Malignant neoplasm of rectum; E11.40 Type 2 diabetes mellitus with diabetic neuropathy, unspecified; I10 Essential (primary) hypertension; E78.5 Hyperlipidemia, unspecified; G47.33 Obstructive sleep apnea (adult) (pediatric); G47.31 Primary central sleep apnea; K21.9 Gastro-esophageal reflux disease without esophagitis; F32.9 Major depressive disorder, single episode, unspecified; F41.9 Anxiety disorder, unspecified; Z79.01 Long term (current) use of anticoagulants; Z79.02 Long term (current) use of 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/antiplatelets; Z79.4 Long term (current) use of insulin; Z79.82 Long term (current) use of aspirin; Z79.899 Other long term (current) drug therapy; I25.2 Old myocardial infarction; Z86.73 Personal history of transient ischemic attack (TIA), and cerebral infarction without residual deficits; Z95.5 Presence of coronary angioplasty implant and graft; Z95.1 Presence of aortocoronary bypass graft
CPT/HCPCS: 00532; 36561; 71045; 77001; 82962; J7120

== ENCOUNTER 2019-10-29 19:23 | Inpatient (IN) | payer BC, MEDICARE, SELFPAY ==
[2019-10-10 09:18] VITALS: BMI 22.8
[2019-10-29] VITALS (12 sets, daily range): BP systolic 112–158; BP diastolic 61–90; PULSE 84–114; RESP 12–21; TEMP 36.6–38.6; O2SAT 93–96; BMI 23.2; BMI 23.3; BMI 21.2; BMI 21.3
--- NOTE | 2019-10-29 19:41 | RAD_ITS ---
STUDY: X-RAY CHEST REASON FOR EXAM: Male, 63 years old. Fever, chemo patient; hx of colorectal cancer;n/v; no resp sx TECHNIQUE: Frontal and lateral views COMPARISON: October 10, 2019 FINDINGS: Stable sternotomy wires a right-sided venous port. The lungs are expanded. Focal left basilar infiltrate/atelectasis. Normal size heart. Normal mediastinum and ramses. Normal visualized pulmonary arteries. Normal visualized aortic arch and descending thoracic aorta. Mild degenerative changes of the thoracic spine. Normal visualized ribs, clavicles, and shoulders. There is no demonstrated abnormality of the visualized soft tissue structures of the upper abdomen. RAD/Chest PA and Lateral IMPRESSION: Focal left basilar infiltrate/atelectasis. Electronically Signed: Jesus Torre DO at 20:39 EDT Tel [phone], Service support ,
--- NOTE | 2019-10-29 19:48 | ED.DCSUM_ITS ---
History of Present Illness Chief Complaint: Weakness Detail of Chief Complaint: Fever, chemo patient for colorectal cancer Informant: Patient Onset: Today Context: Sudden Onset Timing: Intermittent Quality: Fever with chills and nausea and vomiting Location: Generalized and GI Current Severity: Mild Maximum Severity: Moderate Worsened by: Nothing Relieved by: Nothing Associated Symptoms: No respiratory symptoms. No urologic symptoms. Narrative: Patient is a 63-year-old male with history of colorectal cancer. He received chemo Monday through . He had a port placed approximately [address] Chris Biswas. He presents because of temperature of 100.5. He denies headache. He states he has a runny nose with postnasal drainage that has been constant for 1 year. He denies sore throat. He denies cough. He denies shortness of breath. He denies chest discomfort. He does complain of vague upper abdominal pain with nausea and vomiting. Last bowel movement yesterday. He is passing gas. He denies dysuria, frequency, urgency or hematuria. He states he does not feel well and feels blah. Patient told nurse that he vomited a couple of times yesterday. Apparently his emesis was black. It was not coffee grounds or bloody. 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 Status: Chronic (9) CVA (cerebral vascular accident) Status: Chronic Comment: cerebellar stroke Right endarterectomy (10) Carotid artery disease Status: Chronic (11) Central sleep apnea Status: Chronic (12) Diabetes Status: Chronic Comment: Dx : 2008 Last exacerbation : DKA : never Hypoglycemic episode : never ER visit : never (13) Long-term current use of high risk medication other than anticoagulant Status: Chronic (14) ALEJANDRO (obstructive sleep apnea) Status: Chronic (15) Restrictive lung disease Status: Chronic Past Medical History - Allergies and Home Meds Allergies/Adverse Reactions: Allergies No Known Allergies Allergy (Verified 10/29/19 19:27) Primary Care Physician: Kendy Modi MD [Primary Care Provider] - Prior records reviewed: Yes Surgical History: coronary bypass surgery Lives: Spouse/ Significant Other Smoking Status: Never smoker Alcohol: None Drugs: None - Family History Paternal Family History: Family History (Last Reviewed 10/07/19 @ 14:22 by Quynh Boucher) Father CAD (coronary artery disease) Hypertension Cancer Diabetes Heart disease High cholesterol Mother CVA (cerebral vascular accident) Diabetes Breast cancer Brother Diabetes Family History: Reports: Cancer, - Maternal Family History: Family History (Last Reviewed 10/07/19 @ 14:22 by Quynh Boucher) Father CAD (coronary artery disease) Hypertension Cancer Diabetes Heart disease High cholesterol Mother CVA (cerebral vascular accident) Diabetes Breast cancer Brother Diabetes Family History: Reports: Cancer, - Review of Systems General: Reports: Chills, Fever, Malaise, Weight loss. Denies: Subjective, Sweats Eyes: Denies: Visual changes - bilaterally, Blurred Vision - bilaterally, Diplopia ENT: Reports: Rhinorrhea. Denies: Bilateral ear pain, Sore throat Cardiovascular: Denies: Chest pain, Palpitations Respiratory: Denies: Dyspnea, Cough, Dyspnea on exertion Gastrointestinal: Reports: Abdominal pain, Nausea, Vomiting. Denies: Diarrhea, Constipation, Melena, Hematochezia Genitourinary: Denies: Dysuria, Hematuria, Frequency Musculoskeletal: Denies: Myalgias, Arthralgias, Neck pain, Back pain, Swelling, Extremity Pain, -, - Neurological: Reports: Weakness. Denies: Headache, Numbness Psych: Reports: Depression Hematologic: Denies: Easy bruising, Easy bleeding Allergy: Denies: Uticaria, Swelling of the mouth Physical Exam Vital Signs/Narrative: Vital Signs Temp Pulse Resp BP Pulse Ox 10/29/19 19:35 113 H 18 95 10/29/19 19:24 97.8 F 114 H 16 112/61 95 Inital Vital Signs reviewed: Yes General: Well developed, No Acute Distress Head: Normocephalic, Atraumatic. Negative for: Trauma, Tenderness Eyes: Perrl, EOMI, - - Patient has no photophobia. Conjunctive is not injected.. Negative for: Pale conjunctiva, Scleral icterus ENT: Moist mucous membranes, No rhinorrhea, TM's clear. Negative for: Sinus tenderness Neck: Supple, Nontender, No lymphadenopathy, No JVD Cardiovascular: Regular rhythm, No murmurs, Normal S1, Normal S2, Tachycardia Respiratory: No distress, CTA bilaterally, Chest nontender Abdomen: Soft, Nontender, Nondistended, Hypoactive bowel sounds. Negative for: Normal bowel sounds, Hepatomegaly, Splenomegaly, Mass, Pulsatile mass Rectal: Deferred Back: Nontender, Normal Inspection. Negative for: CVA tenderness Extremities: Nontender, No edema Skin: No rash, No Trauma. Negative for: Cyanosis, Diaphoresis, Jaundice, Pallor Neurological: Alert, Oriented x3, Cranial nerves II-XII grossly intact, Normal Strength, Normal Sensation Psychological: Depressed Diagnostic/Tx/Re-eval Chest X-Ray - ED: 2 View, Read by ED Physician, - - There is evidence of chronic changes. There is a port since prior x-ray. The cardiac silhouette is normal. The mediastinum is normal. There is mild degenerative changes of the thoracic spine. 2024 Radiologist read was reviewed. I am in disagreement where he is calling a focal infiltrate. I believe this is overlapping ribs and if anything there is minimal discoid atelectasis. May 04, 2019 creatinine was 0.9 with a GFR of 111. Blood sugar is 389. 10 units of insulin was ordered. BUN and creatinine are elevated at 33 and 1.56. GFR is 47. Lactate is elevated at 3.9. Uncertain the etiology at this point. This may be secondary infection versus diabetes. I was informed patient's lactate is 3.9. I was just informed that his temperature is now elevated. His urine appears clear and straw-colored. Noted without evidence infection. Urine appears grossly not to be infected and chest x-ray reveals no obvious infiltrate. Antibiotic order set for unknown source was entered. Patient will require admission to the hospital. Urinalysis is consistent with infection. Antibiotics were chosen will cover for urologic pathogens. Vancomycin was ordered because he had recent port placed. Impressions Chest X-Ray 10/29/19 19:41 IMPRESSION: Focal left basilar infiltrate/atelectasis. Electronically Signed: Jesus Torre DO at 20:39 EDT Tel [phone], Service support , 10/29/19 19:41 Chest PA and Lateral [RAD] Stat Laboratory Results 10/29/19 10/29/19 10/29/19 20:00 20:00 20:00 WBC 7.7 RBC 4.18 L Hgb 11.1 L Hct 35.4 L MCV 84.7 MCH 26.6 L MCHC 31.4 L RDW Std Deviation 49.3 H RDW Coeff of Maia 16.0 H Plt Count 164 MPV 9.7 Immature Gran % (Auto) 1.800 H Neut % (Auto) 91.3 H Lymph % (Auto) 1.9 L [place] % (Auto) 4.9 Eos % (Auto) 0.0 Baso % (Auto) 0.1 Absolute Neuts (auto) 7.0 Absolute Lymphs (auto) 0.15 L Nucleated RBC % 0 Sodium 135 L Potassium 5.1 Chloride 98 Carbon Dioxide 27.0 Anion Gap 10 BUN 33 H Creatinine 1.59 H Estim Creat Clear Calc 44.03 Est GFR (MDRD) Af Amer 57 L Est GFR (MDRD) Non-Af 47 L BUN/Creatinine Ratio 20.8 H Glucose 386 H Lactic Acid 3.9 H* Calcium 8.5 Total Bilirubin 0.60 AST 71 H ALT 32 Alkaline Phosphatase 106 Total Protein 7.0 Albumin 3.1 L Globulin 3.9 Albumin/Globulin Ratio 0.8 L Urine Color Urine Clarity Urine pH Ur Specific [place] Urine Protein Urine Glucose (UA) Urine Ketones Urine Occult Blood Urine Nitrite Urine Bilirubin Urine Urobilinogen Ur Leukocyte Esterase Urine RBC Urine WBC Ur Squamous Epith Cells Urine Bacteria Urine Mucus 10/29/19 21:15 WBC RBC Hgb Hct MCV MCH MCHC RDW Std Deviation RDW Coeff of Maia Plt Count MPV Immature Gran % (Auto) Neut % (Auto) Lymph % (Auto) [place] % (Auto) Eos % (Auto) Baso % (Auto) Absolute Neuts (auto) Absolute Lymphs (auto) Nucleated RBC % Sodium Potassium Chloride Carbon Dioxide Anion Gap BUN Creatinine Estim Creat Clear Calc Est GFR (MDRD) Af Amer Est GFR (MDRD) Non-Af BUN/Creatinine Ratio Glucose Lactic Acid Calcium Total Bilirubin AST ALT Alkaline Phosphatase Total Protein Albumin Globulin Albumin/Globulin Ratio Urine Color Yellow Urine Clarity Clear Urine pH 5.0 Ur Specific [place] 1.015 Urine Protein 30 H Urine Glucose (UA) 1000 H Urine Ketones 50 H Urine Occult Blood 150 H Urine Nitrite Positive H Urine Bilirubin Negative Urine Urobilinogen Normal Ur Leukocyte Esterase 100 H Urine RBC 0-5 SEEN Urine WBC 10-25 SEEN Ur Squamous Epith Cells 0 SEEN Urine Bacteria 2+ Urine Mucus 0 SEEN - Rhythm Strip Rhythm Strip: Sinus Tach Rate: 107 Ectopy: None - EKG Initial EKG Interpretation: Sinus Rhythm - Sinus rhythm with a ventricular rate of 99. LA interval 142 ms. QRS duration 84 ms. QT duration 372 ms. QTc is 477 ms. Garrard is normal. Computer is reading ossific changes which is motion artifact. There is prolongation of the QT interval. There is no acute ischemic changes noted. - Medical Decision Making With history of recent chemo and fever will obtain infectious work-up. This will include chest x-ray, urinalysis and appropriate blood work. The port site was evaluated and there is no evidence of infection. - Critical Care Time Critical care time (excluding procedures): 30-74 minutes, Discussing w/Patient &/or Family/Assignment Desk Assistant, Discussing w/Consultants - Spoke with Dr. Mary Rojas who is on-call for Dr. Dwayne Leonardo., Arranging Admission or Transfer - CC 33 minutes ED Disposition - Plan for ED Patient: Disposition: Acute Care Hospital [facility] Diagnosis: Lactic acidosis, Acute renal insufficiency, Acute prerenal azotemia, Severe sepsis, Hyperglycemia due to type 1 diabetes mellitus, Urinary tract infection, Status post chemotherapy, Sinus tachycardia seen on deck officer, Nausea and vomiting in adult patient Referrals: Kendy Modi MD [Primary Care Provider] -
[2019-10-29] MEDS: 0.9% Normal Saline 1,000 ML 1000 ML IV ×2 (20:10→21:47)
[2019-10-29 20:48] LABS: ALB/GLOB Ratio 0.8 RATIO (0.9-2.4); AST(SGOT) 71 U/L (15-37); Alanine Aminotransfer ALT/SGPT 32 U/L (16-61); Albumin, Serum 3.1 g/dL (3.2-5.0); Alkaline Phosphatase 106 U/L (45-117); Anion Gap 10 (5-15); BUN 33 mg/dL (7-18); BUN/Creat Ratio 20.8 RATIO (10-20); Calcium,Total 8.5 mg/dL (8.5-10.1); Chloride 98 mmol/L (98-107); Creatinine, Serum 1.59 mg/dL (0.70-1.30); EST Glomerular Filtration Rate 47 mL/min (>60); Est Glom Filt Rate - Afr Amer 57 mL/min (>60); Estimated Creatinine Clearance 44.03 ml/min; Globulin 3.9 g/dL (2.2-4.2); Glucose 386 mg/dL (74-106); Potassium 5.1 mmol/L (3.5-5.1); Sodium Level 135 mmol/L (136-145)
[2019-10-29 21:02] LABS: Lactic Acid 3.9 mmol/L (0.4-1.9)
[2019-10-29] MEDS: Insulin Lispro 100 UNIT/ML INSULN.PEN 10 UNIT SC (21:15)
[2019-10-29 21:21] LABS: Mucous, Urine 0 SEEN /hpf (<or=2+); Squamous Epithelial Cells - UA 0 SEEN /hpf (0-5)
[2019-10-29 21:26] LABS: Color, Urine Yellow (Yellow); Glucose, Dipstick 1000 mg/dl (Normal); Ketone-Dipstick 50 mg/dl (Negative); Leukocyte Esterase-Dipstick 100 /ul (Negative); Nitrite-Dipstick Positive (Negative); Occult Blood-Urine 150 /ul (Negative); Protein-Dipstick 30 mg/dl (Negative); Specific Gravity, Urine 1.015 (1.002-1.030); Urine Bilirubin Dipstick Negative (Negative); Urine Clarity Clear (Clear); Urine Urobilinogen Normal (Normal)
[2019-10-29] MEDS: Acetaminophen 325 MG Tablet 650 MG PO (21:29)
[2019-10-29 21:32] LABS: Absolute Lymphocyte Count 0.15 X10^3/uL (0.83-4.51); Basophil# 0.01 X10^3/uL; Basophil% 0.1 % (0-1); Hematocrit 35.4 % (40-54); Hemoglobin 11.1 g/dL (13.0-16.5); Lymphocyte # 0.15 X10^3/ul (4.0); Lymphocyte % 1.9 % (19-41); Mean Corp Hgb Conc 31.4 g/dL (32-36); Mean Corpuscular Hgb 26.6 pg (27.0-32.0); Mean Corpuscular Volume 84.7 fL (80-94); Mean Platelet Vol. 9.7 fl (6.2-12.0); Monocyte# 0.38 X10^3/uL; Monocyte% 4.9 % (0-10); NRBC Flagged by Analyzer 0 % (0-5); Neutrophil # 7.02 X10^3/uL (2.7-7.7); Neutrophil % 91.3 % (47-70); POSITIVE DIFFERENTIAL YES; POSITIVE MORPHOLOGY YES; Platelet Count 164 K/mm3 (150-450); RBC Distribution Width SD 49.3 fl (35.1-43.9); Red Blood Count 4.18 M/mm3 (4.6-6.2); White Blood Count 7.7 K/mm3 (4.4-11.0)
[2019-10-29 21:34] LABS: Bacteria 2+ /hpf (None Seen); Red Blood Cells-Urine 0-5 SEEN /hpf (0-5); White Blood Cells 10-25 SEEN /hpf (0-5)
--- NOTE | 2019-10-29 21:41 | EKG12_ITS ---
Test Reason : SEPSIS Blood Pressure : / mmHG Vent. Rate : 099 BPM Atrial Rate : 099 BPM P-R Int : 142 ms QRS Dur : 084 ms QT Int : 372 ms P-R-T Axes : 052 026 061 degrees QTc Int : 477 ms Normal sinus rhythm Nonspecific T wave abnormality Prolonged QT Abnormal ECG Confirmed by CARLOS MANUEL MONTE, SAMSON ([id number]), news copy editor YESENIA DELGADO ([id number]) on 10/31/2019 1:34:46 PM Referred By: SADE Confirmed By:SAMSON HOROWITZ MD
--- NOTE | 2019-10-29 21:59 | HP.PCM_ITS ---
Problem List (1) Lactic acidosis Status: Acute (2) Acute renal insufficiency Status: Acute (3) Acute prerenal azotemia Status: Acute (4) Severe sepsis Status: Acute (5) Hyperglycemia due to type 1 diabetes mellitus Status: Acute (6) Urinary tract infection Status: Acute (7) Status post chemotherapy Status: Acute (8) Sinus tachycardia seen on ekg monitor Status: Acute (9) Nausea and vomiting in adult patient Status: Acute (10) Rectal cancer Status: Acute (11) Obstructive sleep apnea Status: Chronic (12) Peripheral vascular disease Status: Acute (13) Hyperlipidemia Status: Acute (14) Ischemic cardiomyopathy Status: Acute (15) TIA (transient ischemic attack) Status: Acute (16) Spinal stenosis Status: Acute (17) Dizziness and giddiness Status: Chronic (18) Long-term current use of high risk medication other than anticoagulant Status: Chronic (19) Central sleep apnea Status: Chronic (20) Nocturnal hypoxia Status: Chronic (21) Restrictive lung disease Status: Chronic (22) Type 2 diabetes mellitus Status: Chronic Qualifiers: Diabetes mellitus prison insulin use: unspecified remote computer terminal operator insulin use status Diabetes mellitus complication status: with neurologic complications Diabetes mellitus complication detail: with unspecified neuropathy Qualified Code(s): E11.40 - Type 2 diabetes mellitus with diabetic neuropathy, unspecified (23) Anxiety disorder Status: Chronic (24) GERD (gastroesophageal reflux disease) Status: Chronic (25) Carotid artery disease Status: Chronic (26) S/P right and left heart catheterization Status: Chronic (27) History of coronary artery stent placement Status: Chronic Comment: [id number] 01/02/15 (28) 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 Status: Chronic (29) H/O coronary artery bypass surgery Status: Chronic Comment: CABG x 5 05/30/2008 ZUNIGA-LAD and D1, Free KIMBERLYN- PDA, SVG-Ramus, SVG-OM1 (30) Peripheral vascular occlusive disease Status: Chronic (31) CVA (cerebral vascular accident) Status: Chronic Comment: cerebellar stroke Right endarterectomy (32) Diabetes Status: Chronic Qualifiers: Diabetes mellitus type: type 2 Diabetes mellitus remote computer terminal operator insulin use: w ith remote computer terminal operator use Diabetes mellitus complication status: with unspecified complications Comment: Dx : 2007 Last exacerbation : DKA : never Hypoglycemic episode : never ER visit : never (33) HTN (hypertension) Status: Chronic Qualifiers: Hypertension type: essential hypertension Qualified Code(s): I10 - Essential (primary) hypertension (34) Dyslipidemia Status: Chronic (35) ALEJANDRO (obstructive sleep apnea) Status: Chronic (36) Dizziness Status: Chronic History of Present Illness Date of Admission: 10/29/19 Chief Complaint: Fever for 2 days The patient is a 63 year old M with multiple comorbidities including rectal cancer on chemotherapy last 1 about a week ago came to ER with complaint of fever, 100.5 Fahrenheit, nausea and vomiting for about 2 days. Patient also reported less urine output for about 1 week but denies burning micturition, increased frequency or urgency. Patient denies respiratory symptoms including cough, shortness of breath, chest pain/pressure or recent sick contact or contact with contact/gathering. Patient also had nausea and vomiting but denies diarrhea, blood in the stool or GI bleed [] In ED, triage vitals 101.4, heart rate 108/min, blood pressure 138/72, pulse ox 95% on room air, RR 16/min. Basic labs shows lactic acid 3.9, BUN/creatinine 33/1. 5 9, sodium 135. Glucose 386. H&H 11.1/35.4, platelet count 164,000. UA positive of nitrite, LE 100, WBC 10-25 cells. Patient was ordered 1 dose of vancomycin and Zosyn in ER and admitted. Past Medical History Past Medical History (Chronic Problems): Chronic Problems (Last Reviewed 10/07/19 @ 14:22 by Quynh Boucher) Obstructive sleep apnea (Chronic) Dizziness and giddiness (Chronic) Long-term current use of high risk medication other than anticoagulant (Chronic) Central sleep apnea (Chronic) Nocturnal hypoxia (Chronic) Restrictive lung disease (Chronic) Type 2 diabetes mellitus (Chronic) Anxiety disorder (Chronic) GERD (gastroesophageal reflux disease) (Chronic) Carotid artery disease (Chronic) S/P right and left heart catheterization (Chronic 01/22/15) History of coronary artery stent placement (Chronic 01/02/15) [id number] 01/02/15 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) H/O coronary artery bypass surgery (Chronic 05/30/08) CABG x 5 05/30/2008 ZUNIGA-LAD and D1, Free KIMBERLYN-PDA, SVG-Ramus, SVG-OM1 Peripheral vascular occlusive disease (Chronic) CVA (cerebral vascular accident) (Chronic) cerebellar stroke Right endarterectomy Diabetes (Chronic) Dx : 2007 Last exacerbation : DKA : never Hypoglycemic episode : never ER visit : never HTN (hypertension) (Chronic) Dyslipidemia (Chronic) ALEJANDRO (obstructive sleep apnea) (Chronic) Dizziness (Chronic) Medical History: Medical History (Last Reviewed 10/07/19 @ 14:22 by Quynh Boucher) Rectal cancer (Acute) C20 Obstructive sleep apnea (Chronic) G47.33 Dizziness and giddiness (Chronic) R42 Long-term current use of high risk medication other than anticoagulant (Chronic) Z79.899 Central sleep apnea (Chronic) G47.31 Nocturnal hypoxia (Chronic) G47.34 Restrictive lung disease (Chronic) J98.4 Type 2 diabetes mellitus (Chronic) E11.9 Anxiety disorder (Chronic) F41.9 GERD (gastroesophageal reflux disease) (Chronic) K21.9 Carotid artery disease (Chronic) I77.9 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) I25.798 Peripheral vascular occlusive disease (Chronic) I73.9 CVA (cerebral vascular accident) (Chronic) I63.9 cerebellar stroke Right endarterectomy Diabetes (Chronic) E11.9 Dx : 2007 Last exacerbation : DKA : never Hypoglycemic episode : never ER visit : never HTN (hypertension) (Chronic) I10 Dyslipidemia (Chronic) E78.5 ALEJANDRO (obstructive sleep apnea) (Chronic) G47.33 Dizziness (Chronic) R42 Diabetic neuropathy E11.40 invasive rectal adenocarcinoma Chronic back pain M54.9, G89.29 Allergies No Known Allergies Allergy (Verified 10/29/19 19:27) Home Medications: Ambulatory Orders Medication Instructions Recorded Aspirin 81 mg PO DAILY 03/20/16 Duloxetine HCl 60 mg PO DAILY 03/20/16 insulin lispro 100 unit/mL See Rx Instructions SC .COMPLEX 04/02/18 subcutaneous pen #60 ml Insulin Detemir [Levemir FlexPen] 70 unit SUBCUT QHS 05/02/19 Ascorbic Acid [Vitamin C] 500 mg PO DAILY #30 tab.chew 05/05/19 metoprolol tartrate 25 mg tablet 12.5 mg PO BID #90 tab 09/26/19 omeprazole 20 mg capsule,delayed 20 mg PO DAILY #90 cap 09/26/19 release gabapentin 100 mg capsule 100 mg PO TID 10/07/19 Lisinopril [Prinivil] 2.5 mg PO DAILY 10/09/19 Rosuvastatin Calcium 20 mg PO QHS 10/29/19 Surgical History: Surgical History (Last Reviewed 10/07/19 @ 14:22 by Quynh Boucher) S/P right and left heart catheterization (Chronic) Onset Date: 01/22/15 Z98.890 History of coronary artery stent placement (Chronic) Onset Date: 01/02/15 Z95.5 [id number]-Ramus 01/02/15 H/O coronary artery bypass surgery (Chronic) Onset Date: 05/30/08 Z95.1 CABG x 5 05/30/2008 ZUNIGA-LAD and D1, Free KIMBERLYN-PDA, SVG-Ramus, SVG-OM1 Excision Max.Zygoma Face Tumor History of herniorrhaphy Z98.890, Z87.19 History of right-sided carotid endarterectomy Z98.890 History of tonsillectomy Z98.890, Z90.89 PTCA Left Anterior Tibial and Paroneal Artery Surgical History: coronary bypass surgery Psychiatric History: No pertinent psych hx Lives: Spouse/ Significant Other Smoking Status: Never smoker Alcohol: None Drugs: None - *Family History Paternal Family History: Family History (Last Reviewed 10/07/19 @ 14:22 by Quynh Boucher) Father CAD (coronary artery disease) Hypertension Cancer Diabetes Heart disease High cholesterol Mother CVA (cerebral vascular accident) Diabetes Breast cancer Brother Diabetes History Items: Cancer, - Maternal Family History: Family History (Last Reviewed 10/07/19 @ 14:22 by Quynh Boucher) Father CAD (coronary artery disease) Hypertension Cancer Diabetes Heart disease High cholesterol Mother CVA (cerebral vascular accident) Diabetes Breast cancer Brother Diabetes History Items: Cancer, - Review of Systems Constitutional: Reports: Anorexia, Chills, Fever, Malaise, Weakness, Fatigue HEENT: Denies: Head Aches, Sinus Congestion, Sinus Drainage Cardiovascular: Denies: Chest Pain, Palpitations Respiratory: Denies: Cough, Shortness of breath at rest, Sputum production Gastrointestinal: Denies: Abdominal Pain, Nausea, Vomiting Genitourinary: Denies: Dysuria, Frequency, Urgency Musculoskeletal: Denies: Joint Pain, Joint Tenderness Skin: Denies: Rash, Wounds Neurological: Denies: Numbness, Tingling, Focal weakness Psychiatric: Denies: Anxiety, Depression, Homicidal Ideations, Suicidal Ideations Hematologic/ Lymphatic: Denies: Easy Bruising, Easy Bleeding VTE Information - Inpt Only VTE Present on Admission: No VTE Mechan Device Prophylaxis: SCD's VTE Pharm Prophylaxis ordered?: Yes Patient Problems: Active and Suspected Problems (Last Reviewed 10/07/19 @ 14:22 by Quynh Boucher) Lactic acidosis (Acute) Acute renal insufficiency (Acute) Acute prerenal azotemia (Acute) Severe sepsis (Acute) Hyperglycemia due to type 1 diabetes mellitus (Acute) Urinary tract infection (Acute) Status post chemotherapy (Acute) Sinus tachycardia seen on ekg monitor (Acute) Nausea and vomiting in adult patient (Acute) - Physical Exam Vitals/I&O's: Vital Signs Temp Pulse Resp BP Pulse Ox 101.4 F H 105 H 14 147/70 H 95 10/29/19 21:18 10/29/19 21:18 10/29/19 21:18 10/29/19 21:18 10/29/19 21:18 Oxygen Delivery Method Room Air Weight: 144 lb 13.499 oz Body Mass Index (BMI) 23.3 Finger Stick Blood Glucose 339 Intake and Output for Last 24 Hours 10/27/19 10/28/19 10/29/19 23:59 23:59 23:59 Intake Total 1000 / 1000 Balance 1000 / 1000 General: Alert, Oriented x3, Cooperative HEENT: Atraumatic, PERRLA, EOMI, Normocephalic Oral: No Gingival or Mucosal Lesions/ Ulcerations, Dry Mucosa Neck: Supple, No JVD, Negative Carotid Bruits Lungs: Clear to auscultation, No rhonchi, No wheeze, No rales, Diminished Cardiovascular: Regular rate, No murmurs Abdomen: Bowel Sounds Present, Soft, Non Tender, Non-Distended Extremities: No edema, Capillary Refill Less than 3 Seconds Skin: No rashes, No breakdown Musculoskeletal: No Tenderness to Palpation of Joints or Extremities Lymphatic: Cervical Adenopathy Neurological: Cranial nerves II-XII grossly intact, Deep Tendon Reflexes 2+/4 and Symmetrical, Neuro grossly intact Psych/Mental Status: Normal Affect, Appropriate Laboratory Results 10/29/19 20:00: Sodium 135 L, Potassium 5.1, Chloride 98, Carbon Dioxide 27.0, Anion Gap 10, BUN 33 H, Creatinine 1.59 H, Estim Creat Clear Calc 44.03, Est GFR (MDRD) Af Amer 57 L, Est GFR (MDRD) Non-Af 47 L, BUN/Creatinine Ratio 20.8 H, Glucose 386 H, Calcium 8.5, Total Bilirubin 0.60, AST 71 H, ALT 32, Alkaline Phosphatase 106, Total Protein 7.0, Albumin 3.1 L, Globulin 3.9, Albumin/Globulin Ratio 0.8 L 10/29/19 20:00: Lactic Acid 3.9 H* 10/29/19 20:00: WBC 7.7, RBC 4.18 L, Hgb 11.1 L, Hct 35.4 L, MCV 84.7, MCH 26.6 L, MCHC 31.4 L, RDW Std Deviation 49.3 H, RDW Coeff of Maia 16.0 H, Plt Count 164, MPV 9.7, Immature Gran % (Auto) 1.800 H, Neut % (Auto) 91.3 H, Lymph % (Auto) 1.9 L, [place] % (Auto) 4.9, Eos % (Auto) 0.0, Baso % (Auto) 0.1, Absolute Neuts (auto) 7.0, Absolute Lymphs (auto) 0.15 L, Nucleated RBC % 0 10/29/19 21:15: Urine Color Yellow, Urine Clarity Clear, Urine pH 5.0, Ur Specific [place] 1.015, Urine Protein 30 H, Urine Glucose (UA) 1000 H, Urine Ketones 50 H, Urine Occult Blood 150 H, Urine Nitrite Positive H, Urine Bilirubin Negative, Urine Urobilinogen Normal, Ur Leukocyte Esterase 100 H, Urine RBC 0-5 SEEN, Urine WBC 10-25 SEEN, Ur Squamous Epith Cells 0 SEEN, Urine Bacteria 2+, Urine Mucus 0 SEEN Current Medications Sodium Chloride () 1,000 mls @ 1,000 mls/hr IV .Q1H ONE Stop: 10/29/19 22:35 Last Admin: 10/29/19 21:47 Dose: 1,000 mls/hr Documented by: Vancomycin HCl 1,750 mg/ (Sodium Chloride) 535 mls @ 250 mls/hr IV X1 ONE Stop: 10/29/19 23:58 Assessment/Plan All Active Problems (Last Reviewed 10/07/19 @ 14:22 by Quynh Boucher) Lactic acidosis (Acute) Acute renal insufficiency (Acute) Acute prerenal azotemia (Acute) Severe sepsis (Acute) Hyperglycemia due to type 1 diabetes mellitus (Acute) Urinary tract infection (Acute) Status post chemotherapy (Acute) Sinus tachycardia seen on ekg monitor (Acute) Nausea and vomiting in adult patient (Acute) Rectal cancer (Acute) Peripheral vascular disease (Acute) Hyperlipidemia (Acute) Ischemic cardiomyopathy (Acute) TIA (transient ischemic attack) (Acute) Spinal stenosis (Acute) The patient is a 63 year old M with multiple comorbidities including rectal cancer on chemotherapy last 1 about a week ago came to ER with complaint of fever, 100.5 Fahrenheit, nausea and vomiting for about 2 days. [] In ED, triage vitals 101.4, heart rate 108/min, blood pressure 138/72, pulse ox 95% on room air, RR 16/min. Basic labs shows lactic acid 3.9, BUN/creatinine 33/1. 5 9, sodium 135. Glucose 386. H&H 11.1/35.4, platelet count 164,000. UA positive of nitrite, LE 100, WBC 10-25 cells. Patient was ordered 1 dose of vancomycin and Zosyn in ER and admitted. EKG reviewed and shows normal sinus rhythm at [address]-T abnormality. QTc 477 ms. Chest x-ray individually reviewed and does not show consolidation although reported as focal left basilar infiltrate/atelectasis no official report. 1. Severe sepsis most probably secondary to complicated UTI/chemotherapy: Patient is being admitted in ICU as per severe sepsis protocol. Started on IV Zosyn. MRSA nasal screen ordered. Sepsis work-up was ordered including blood cultures x2, urine culture and respiratory panel. Based on culture report, antibiotic needs to be further narrowed down. IV fluid normal saline as per 30 mils per KG body weight, about 2 L and then 150 mill per hour. [employer] consulted per severe sepsis protocol. 2. Rectal cancer status on chemotherapy: Patient had local radiation before as part of neoadjuvant chemoradiation. Dr. Leonardo is his oncologist. Will consult oncology. 3. Coronary artery status post stents, CABG, hypertension, dyslipidemia and history of CVA: Patient is on aspirin and Plavix which is continued. 4. Diabetes mellitus type 2 with hyperglycemia: Glucose was elevated in ER and 10 units of short-acting insulin given. Accu-Chek insulin is covered with blood sliding scale. Patient on Levemir and lispro insulin at home. 5. Acute kidney injury on CKD stage II mostly secondary to dehydration, prerenal or ATN/severe sepsis: Patient previous BUN/creatinine 15/0.9. Currently 33/1.59. Monitor intake and output. Monitor kidney function and electrolytes. History of syncope secondary to dehydration or possible lower GI bleed loss, iron deficiency anemia. Patient was admitted for this in April 2019. DVT prophylaxis; moderate to high risk: On Lovenox 40 mg subcu daily. Bilateral SCDs. Advanced directive/CODE STATUS: Patient has living will at home. Patient does not want artificial life support including intubation, tube feed, ventilator and/chest compression. Patient is DNR CC Arrest. Total time spent in [id number] encounter in discussion of advanced directive 16 minutes. Active Medications Vancomycin HCl 1,750 mg/ (Sodium Chloride) 535 mls @ 250 mls/hr IV X1 ONE Stop: 10/29/19 23:58 Last Admin: 10/29/19 22:27 Dose: 250 mls/hr Documented by: Clinical Impression(s) from Imaging Studies Chest X-Ray 10/29/19 19:41 IMPRESSION: Focal left basilar infiltrate/atelectasis. Electronically Signed: Jesus Torre DO at 20:39 EDT Tel [phone], Service support , Inpatient E&M: 72486 Init Hosp L3 Procedures: 38808 Advncd Care Plan 30 Min
[2019-10-29 22:15] LABS: Differential Indicated SCAN CRITERIA MET
[2019-10-29 22:16] LABS: Differential Comment SCANNED; Platelet Estimate ADEQUATE (ADEQ); Red Cell Morphology NORM C+C NORMAL (NORM C&C)
[2019-10-29 22:35] LABS: Bedside Glucose 363 mg/dL (70-110)
[2019-10-29 23:19] LABS: Magnesium 1.6 mg/dL (1.6-2.6)
[2019-10-29] MEDS: Gabapentin 100 MG Capsule PO (23:21)
[2019-10-29] MEDS: Enoxaparin 40 MG/0.4 ML Syringe SC (23:21)
[2019-10-30] VITALS (24 sets, daily range): BP systolic 114–178; BP diastolic 69–90; PULSE 82–112; RESP 12–24; TEMP 36.6–37.5; O2SAT 93–96
[2019-10-30 00:06] LABS: Bedside Glucose 350 mg/dL (70-110)
[2019-10-30 00:20] LABS: Reflex Lactate? Y
[2019-10-30] MEDS: 0.9% Normal Saline 1,000 ML 150 ML IV (00:35)
[2019-10-30 01:03] LABS: M R Staph aureus DNA By PCR Negative (Negative); Probe Check PASS; Specimen Processing Control PASS
[2019-10-30 05:19] LABS: Absolute Lymphocyte Count 0.27 X10^3/uL (0.83-4.51); Absolute Neutrophil Count 5.6 X10^3/uL (2.0-7.7); Basophil# 0.01 X10^3/uL; Basophil% 0.2 % (0-1); Eosinophil# 0.24 X10^3/uL; Eosinophils% 3.7 % (0-5); Hematocrit 32.2 % (40-54); Lymphocyte # 0.27 X10^3/ul (4.0); Lymphocyte % 4.1 % (19-41); Mean Corp Hgb Conc 31.1 g/dL (32-36); Mean Corpuscular Hgb 26.2 pg (27.0-32.0); Mean Corpuscular Volume 84.5 fL (80-94); Mean Platelet Vol. 9.4 fl (6.2-12.0); Monocyte# 0.37 X10^3/uL; Monocyte% 5.6 % (0-10); NRBC Flagged by Analyzer 0 % (0-5); Neutrophil # 5.62 X10^3/uL (2.7-7.7); Neutrophil % 85.5 % (47-70); POSITIVE DIFFERENTIAL YES; POSITIVE MORPHOLOGY YES; Platelet Count 135 K/mm3 (150-450); RBC Distribution Width CV 15.9 % (11.6-14.6); RBC Distribution Width SD 48.6 fl (35.1-43.9); Red Blood Count 3.81 M/mm3 (4.6-6.2); White Blood Count 6.6 K/mm3 (4.4-11.0)
[2019-10-30] MEDS: Gabapentin 100 MG Capsule PO ×3 (05:29→21:52)
[2019-10-30 05:31] LABS: Differential Indicated SCAN CRITERIA MET
[2019-10-30 05:40] LABS: Differential Comment SCANNED
--- NOTE | 2019-10-30 05:55 | US_ITS ---
STUDY: RENAL ULTRASOUND - COMPLETE REASON FOR EXAM: Male, 63 years old. COMPLICATED UTI TECHNIQUE: Ultrasound evaluation of the kidneys was performed with real-time and static leos-scale imaging. COMPARISON: None. FINDINGS: RIGHT KIDNEY: Normal location of the right kidney, which is normal in size. The right kidney measures 11 cm x 4.7 cm x 6.5 cm. There is a normal cortex of the right kidney. The renal cortex measures 2.1 cm. There is no right renal mass or cyst. There are no right renal calculi. There is no right hydronephrosis. DISTAL RIGHT URETER: There is non-visualization of the distal right ureter. There is no demonstrated right ureterovesical junction calculus. There is a visualized right ureteral jet. LEFT KIDNEY: Normal location of the left kidney, which is normal in size. The left kidney measures 11 cm x 5.3 cm x 5.1 cm. There is a normal cortex of the left kidney. The renal cortex measures 2.0 cm. There is no left renal mass or cyst. There is a 6 mm nonobstructive calculus. There is no left hydronephrosis. DISTAL LEFT URETER: There is non-visualization of the distal left ureter. There is no demonstrated left ureterovesical junction calculus. There is a visualized left ureteral jet. BLADDER: There is thickening of the bladder wall suggestive of a trabeculation. This is worse along the posterior aspect of the bladder. US/Kidney and Bladder IMPRESSION: 6 mm nonobstructive left intrarenal calculus. Bladder wall thickening suggestive of trabeculation. Electronically Signed: Navdeep Gonzales, at 8:13 EDT , Service support ,
[2019-10-30 05:59] LABS: Anion Gap 6 (5-15); BUN 26 mg/dL (7-18); BUN/Creat Ratio 25.2 RATIO (10-20); Calcium,Total 7.2 mg/dL (8.5-10.1); Chloride 103 mmol/L (98-107); Creatinine, Serum 1.03 mg/dL (0.70-1.30); EST Glomerular Filtration Rate 78 mL/min (>60); Est Glom Filt Rate - Afr Amer 94 mL/min (>60); Estimated Creatinine Clearance 69.46 ml/min; Glucose 224 mg/dL (74-106); Potassium 4.4 mmol/L (3.5-5.1); Sodium Level 137 mmol/L (136-145)
--- NOTE | 2019-10-30 06:33 | CON.PCM_ITS ---
Reason for Consult Date of Consultation: 10/30/19 Reason for Consultation: Severe sepsis History of Present Illness: The patient is a 63-year-old male, with a history as outlined below, who presented to the emergency department with complaints of generalized malaise, weakness and fever. The patient does have a history of colorectal cancer and is currently receiving chemotherapy. He does report increased urinary frequency/urgency, but denied the presence of dysuria or hematuria. He denies shortness of breath, chest tightness or wheezing. He does report an occasional cough, which primarily tends to be associated with ingestion of food. On presentation to the emergency department, the patient was noted to be afebrile and hemodynamically stable. He was a bit tachycardic but was maintaining appropriate oxygen saturations on room air. Laboratory evaluation revealed no evidence of a leukocytosis. Chemistry profile was notable for evidence of acute kidney injury with a creatinine of 1.59. Lactate was elevated at 3.9. Urine analysis was positive for nitrites and leukocyte esterase. 2+ urine bacteria was noted. MRSA screen was negative. Plain film chest x-ray revealed no focal infiltrate or consolidation. The patient was provided with supplemental IV fluid hydration and was started on broad-spectrum antimicrobial coverage. He was subsequently admitted to the medical intensive care unit for further management of his severe sepsis. Overnight, the patient has remained clinically stable. The patient did have one recorded fever last evening to 101.4 ?F. He has remained hemodynamically stable, nevertheless. Past Medical History Past Medical History (Chronic Problems): Chronic Problems (Last Updated 10/30/19 @ 08:[address] 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) I25.798 Peripheral vascular occlusive disease (Chronic) I73.9 CVA (cerebral vascular accident) (Chronic) I63.9 cerebellar stroke Right endarterectomy HTN (hypertension) (Chronic) I10 Dyslipidemia (Chronic) E78.5 ALEJANDRO (obstructive sleep apnea) (Chronic) G47.33 Diabetic neuropathy E11.40 invasive rectal adenocarcinoma Allergies No Known Allergies Allergy (Verified 10/29/19 19:27) Home Medications: Ambulatory Orders Medication Instructions Recorded Aspirin 81 mg PO DAILY 03/20/16 Duloxetine HCl 60 mg PO DAILY 03/20/16 insulin lispro 100 unit/mL See Rx Instructions SC .COMPLEX 04/02/18 subcutaneous pen #60 ml Insulin Detemir [Levemir FlexPen] 70 unit SUBCUT QHS 05/02/19 Ascorbic Acid [Vitamin C] 500 mg PO DAILY #30 tab.chew 05/05/19 metoprolol tartrate 25 mg tablet 12.5 mg PO BID #90 tab 09/26/19 omeprazole 20 mg capsule,delayed 20 mg PO DAILY #90 cap 09/26/19 release gabapentin 100 mg capsule 100 mg PO TID 10/07/19 Lisinopril [Prinivil] 2.5 mg PO DAILY 10/09/19 Rosuvastatin Calcium 20 mg PO QHS 10/29/19 Surgical History: Surgical History (Last Reviewed 10/07/19 @ 14:22 by Quynh Boucher) History of coronary artery stent placement (Chronic) Onset Date: 01/02/15 Z95.5 [id number]-Ramus 01/02/15 H/O coronary artery bypass surgery (Chronic) Onset Date: 05/30/08 Z95.1 CABG x 5 05/30/2008 ZUNIGA-LAD and D1, Free KIMBERLYN-PDA, SVG-Ramus, SVG-OM1 Excision Max.Zygoma Face Tumor History of herniorrhaphy Z98.890, Z87.19 History of right-sided carotid endarterectomy Z98.890 History of tonsillectomy Z98.890, Z90.89 PTCA Left Anterior Tibial and Paroneal Artery Surgical History: coronary bypass surgery Psychiatric History: No pertinent psych hx Lives: Spouse/ Significant Other Smoking Status: Never smoker Alcohol: None Drugs: None - *Family History Paternal Family History: Family History (Last Reviewed 10/07/19 @ 14:22 by Quynh Boucher) Father CAD (coronary artery disease) Hypertension Cancer Diabetes Heart disease High cholesterol Mother CVA (cerebral vascular accident) Diabetes Breast cancer Brother Diabetes History Items: Cancer, - Maternal Family History: Family History (Last Reviewed 10/07/19 @ 14:22 by Quynh Boucher) Father CAD (coronary artery disease) Hypertension Cancer Diabetes Heart disease High cholesterol Mother CVA (cerebral vascular accident) Diabetes Breast cancer Brother Diabetes History Items: Cancer, - Review of Systems Constitutional: Reports: Chills, Fever, Malaise, Weakness Eyes: Denies: Blurred vision, Double vision HEENT: Denies: Head Aches, Sinus Congestion, Sinus Drainage Cardiovascular: Denies: Chest Pain, Palpitations Respiratory: Denies: Shortness of Breath, Sputum production, Wheezing Gastrointestinal: Reports: Nausea Genitourinary: Reports: Frequency, Urgency. Denies: Dysuria Musculoskeletal: Denies: Joint Pain, Joint Tenderness Skin: Denies: Rash, Wounds Neurological: Denies: Numbness, Tingling, Focal weakness Psychiatric: Denies: Anxiety, Depression, Homicidal Ideations, Suicidal Ideations Hematologic/ Lymphatic: Reports: Anemia Objective: The patient's most recent lab work, culture data and imaging studies have all been personally reviewed. Respiratory viral panel is negative. Blood and urine cultures are pending. - Physical Exam Vitals/I&O's: Vital Signs Temp Pulse Resp BP Pulse Ox 97.8 F 112 H 24 H 166/73 H 95 10/30/19 05:00 10/30/19 06:00 10/30/19 06:00 10/30/19 06:00 10/30/19 06:00 Oxygen Delivery Method Room Air Weight: 143 lb 11.862 oz Body Mass Index (BMI) 21.2 Finger Stick Blood Glucose 363 Intake and Output for Last 24 Hours 10/28/19 10/29/19 10/30/19 23:59 23:59 23:59 Intake Total 1945.67 / 1945. 1616.66 / 1616.66 Balance 1945. / 1945. 161.66 / 1616.66 General: Alert, Cooperative, No apparent distress HEENT: Atraumatic, PERRLA, Normocephalic Oral: No Gingival or Mucosal Lesions/ Ulcerations Neck: Supple, No Nodes, Trachea Midline Lungs: Normal air movement, No rhonchi, No wheeze, No rales Cardiovascular: Normal S1, Normal S2, No murmurs, Tachycardic Abdomen: Bowel Sounds Present, Soft, Non Tender Extremities: No clubbing, No cyanosis Skin: No breakdown Musculoskeletal: No Tenderness to Palpation of Joints or Extremities, No Muscle Wasting Lymphatic: No Cervical, Supraclavicular, or Inguinal Adenopathy Neurological: Cranial nerves II-XII grossly intact, Neuro grossly intact Psych/Mental Status: Alert and oriented to time, place, person, mood and affect Labs (Last 48 Hours) 10/29/19 10/29/19 10/29/19 20:00 20:00 20:00 WBC 7.7 RBC 4.18 L Hgb 11.1 L Hct 35.4 L MCV 84.7 MCH 26.6 L MCHC 31.4 L RDW Std Deviation 49.3 H RDW Coeff of Maia 16.0 H Plt Count 164 MPV 9.7 Immature Gran % (Auto) 1.800 H Neut % (Auto) 91.3 H Lymph % (Auto) 1.9 L Traill % (Auto) 4.9 Eos % (Auto) 0.0 Baso % (Auto) 0.1 Absolute Neuts (auto) 7.0 Absolute Lymphs (auto) 0.15 L Nucleated RBC % 0 Differential Comment SCANNED Platelet Estimate ADEQUATE RBC Morphology NORM C+C Sodium 135 L Potassium 5.1 Chloride 98 Carbon Dioxide 27.0 Anion Gap 10 BUN 33 H Creatinine 1.59 H Estim Creat Clear Calc 44.03 Est GFR (MDRD) Af Amer 57 L Est GFR (MDRD) Non-Af 47 L BUN/Creatinine Ratio 20.8 H Glucose 386 H Lactic Acid 3.9 H* Calcium 8.5 Magnesium Total Bilirubin 0.60 AST 71 H ALT 32 Alkaline Phosphatase 106 Total Protein 7.0 Albumin 3.1 L Globulin 3.9 Albumin/Globulin Ratio 0.8 L TSH Urine Color Urine Clarity Urine pH Ur Specific [place] Urine Protein Urine Glucose (UA) Urine Ketones Urine Occult Blood Urine Nitrite Urine Bilirubin Urine Urobilinogen Ur Leukocyte Esterase Urine RBC Urine WBC Ur Squamous Epith Cells Urine Bacteria Urine Mucus MRSA (PCR) POC Glucose 10/29/19 10/29/19 10/29/19 20:00 21:15 22:26 WBC RBC Hgb Hct MCV MCH MCHC RDW Std Deviation RDW Coeff of Maia Plt Count MPV Immature Gran % (Auto) Neut % (Auto) Lymph % (Auto) Traill % (Auto) Eos % (Auto) Baso % (Auto) Absolute Neuts (auto) Absolute Lymphs (auto) Nucleated RBC % Differential Comment Platelet Estimate RBC Morphology Sodium Potassium Chloride Carbon Dioxide Anion Gap BUN Creatinine Estim Creat Clear Calc Est GFR (MDRD) Af Amer Est GFR (MDRD) Non-Af BUN/Creatinine Ratio Glucose Lactic Acid Calcium Magnesium 1.6 Total Bilirubin AST ALT Alkaline Phosphatase Total Protein Albumin Globulin Albumin/Globulin Ratio TSH Urine Color Yellow Urine Clarity Clear Urine pH 5.0 Ur Specific [place] 1.015 Urine Protein 30 H Urine Glucose (UA) 1000 H Urine Ketones 50 H Urine Occult Blood 150 H Urine Nitrite Positive H Urine Bilirubin Negative Urine Urobilinogen Normal Ur Leukocyte Esterase 100 H Urine RBC 0-5 SEEN Urine WBC 10-25 SEEN Ur Squamous Epith Cells 0 SEEN Urine Bacteria 2+ Urine Mucus 0 SEEN MRSA (PCR) POC Glucose 363 H 10/29/19 10/29/19 10/30/19 23:08 23:56 00:35 WBC RBC Hgb Hct MCV MCH MCHC RDW Std Deviation RDW Coeff of Maia Plt Count MPV Immature Gran % (Auto) Neut % (Auto) Lymph % (Auto) [place] % (Auto) Eos % (Auto) Baso % (Auto) Absolute Neuts (auto) Absolute Lymphs (auto) Nucleated RBC % Differential Comment Platelet Estimate RBC Morphology Sodium Potassium Chloride Carbon Dioxide Anion Gap BUN Creatinine Estim Creat Clear Calc Est GFR (MDRD) Af Amer Est GFR (MDRD) Non-Af BUN/Creatinine Ratio Glucose Lactic Acid 1.0 Calcium Magnesium Total Bilirubin AST ALT Alkaline Phosphatase Total Protein Albumin Globulin Albumin/Globulin Ratio TSH Urine Color Urine Clarity Urine pH Ur Specific [place] Urine Protein Urine Glucose (UA) Urine Ketones Urine Occult Blood Urine Nitrite Urine Bilirubin Urine Urobilinogen Ur Leukocyte Esterase Urine RBC Urine WBC Ur Squamous Epith Cells Urine Bacteria Urine Mucus MRSA (PCR) Negative POC Glucose 350 H 10/30/19 10/30/19 05:10 05:10 WBC 6.6 RBC 3.81 L Hgb 10.0 L Hct 32.2 L MCV 84.5 MCH 26.2 L MCHC 31.1 L RDW Std Deviation 48.6 H RDW Coeff of Maia 15.9 H Plt Count 135 L MPV 9.4 Immature Gran % (Auto) 0.900 Neut % (Auto) 85.5 H Lymph % (Auto) 4.1 L [place] % (Auto) 5.6 Eos % (Auto) 3.7 Baso % (Auto) 0.2 Absolute Neuts (auto) 5.6 Absolute Lymphs (auto) 0.27 L Nucleated RBC % 0 Differential Comment SCANNED Platelet Estimate RBC Morphology Sodium 137 Potassium 4.4 Chloride 103 Carbon Dioxide 28.0 Anion Gap 6 BUN 26 H Creatinine 1.03 Estim Creat Clear Calc 69.46 Est GFR (MDRD) Af Amer 94 Est GFR (MDRD) Non-Af 78 BUN/Creatinine Ratio 25.2 H Glucose 224 H Lactic Acid Calcium 7.2 L Magnesium Total Bilirubin AST ALT Alkaline Phosphatase Total Protein Albumin Globulin Albumin/Globulin Ratio TSH Pending Urine Color Urine Clarity Urine pH Ur Specific [place] Urine Protein Urine Glucose (UA) Urine Ketones Urine Occult Blood Urine Nitrite Urine Bilirubin Urine Urobilinogen Ur Leukocyte Esterase Urine RBC Urine WBC Ur Squamous Epith Cells Urine Bacteria Urine Mucus MRSA (PCR) POC Glucose Microbiology 10/29/19 23:31 Mucosa - Nasopharyngeal Respiratory Panel (PCR) - Final Clinical Impression(s) from Imaging Studies Chest X-Ray 10/29/19 19:41 IMPRESSION: Focal left basilar infiltrate/atelectasis. Electronically Signed: Jesus Torre DO at 20:39 EDT Tel [phone], Service support , Current Medications Acetaminophen (Tylenol) 650 mg PO Q6H PRN PRN PRN Reason: Pain Score 1-10/Temp > 100.7 F Albuterol Sulfate (Ventolin Aerosols) 2.5 mg INHALATION Q2H PRN PRN PRN Reason: SOB/Wheezing Ascorbic Acid (Vitamin C) 500 mg PO DAILY [facility] Aspirin (Aspirin, Baby) 81 mg PO DAILYCM [facility] Atorvastatin Calcium (Lipitor) 40 mg PO QHS [facility] Dextrose (D50w Syringe) 0 gm IV X1 PRN; Protocol PRN Reason: Hypoglycemia Duloxetine HCl (Cymbalta) 60 mg PO DAILY [facility] Enoxaparin Sodium (Lovenox) 40 mg SC DAILY [facility] Last Admin: 10/29/19 23:21 Dose: 40 mg Documented by: Gabapentin (Neurontin) 100 mg PO TID [facility] Last Admin: 10/30/19 05:29 Dose: 100 mg Documented by: Glucagon () 1 mg IM .X1 PRN PRN Reason: Hypoglycemia Guaifenesin (Robitussin) 10 ml PO Q4H PRN PRN PRN Reason: COUGH Sodium Chloride () 250 mls @ 15 mls/hr IV .[id number] PRN PRN Reason: Saline Flush Sodium Chloride () 250 mls @ 15 mls/hr IV .[id number] PRN PRN Reason: Additional IVPB Infusion Piperacillin Sod/Tazobactam (Sod 3.375 gm/ Sodium Chloride) 50 mls @ 12.5 mls/hr IV Q8 [facility] Last Admin: 10/30/19 05:29 Dose: 12.5 mls/hr Documented by: Sodium Chloride () 1,000 mls @ 125 mls/hr IV .Q8H [facility] Last Admin: 10/30/19 01:17 Dose: Not Given Documented by: Insulin Glargine (Lantus (Bk)) 50 units SC QHS [facility] Last Admin: 10/29/19 23:57 Dose: 50 units Documented by: Insulin Human Lispro (Humalog Kwikpen (Bk)) 0 unit SC ACHS [facility]; Protocol Lisinopril (Zestril) 2.5 mg PO DAILY [facility] Metoprolol Tartrate (Lopressor (Beta Blanca)) 12.5 mg PO BID [facility] Morphine Sulfate () 2 mg IV Q3H PRN PRN PRN Reason: Pain Score 6-10/10 Nutritional Formula (Lactose Free) (Glucerna Shake) 120 ml PO 4X/DAY JENNI Oxycodone HCl (Oxyir) 5 mg PO Q4H PRN PRN PRN Reason: Pain Score 4-5/10 Pantoprazole Sodium (Protonix) 20 mg PO DAILY JENNI Prochlorperazine Edisylate (Compazine Iv) 5 mg IV Q4H PRN PRN PRN Reason: Breakthrough Nausea/Vomiting Senna/Docusate Sodium (Senokot-S, Lisbeth-Colace) 2 tablet PO BID PRN PRN PRN Reason: Constipation Sodium Chloride () 10 - 40 ml IV UD PRN PRN Reason: SALINE FLUSH Throat Lozenges (Cepacol Sore Throat Lozenge) 1 lozenge MUCOUS MEM Q2H PRN PRN PRN Reason: SORE THROAT Assessment/Plan RECOMMENDATIONS: 1. Continue broad-spectrum antimicrobial coverage, pending infectious work-up. 2. The patient is medically stable for transfer out of the intensive care unit. 3. Given the patient's lack of further ICU or pulmonary needs, will sign off. Please call with any additional questions. IMPRESSIONS: 1. Severe sepsis, likely secondary to urinary tract source of infection The patient has been adequately volume resuscitated and remains hemodynamically stable. Continue empiric antimicrobials, while awaiting finalized infectious wo rk-up. The patient does not currently have any ICU needs and can be transferred accordingly. 2. Acute kidney injury Likely prerenal in etiology and due to nausea/vomiting. Creatinine has improved with volume expansion. Continue to monitor urine output. No current indication for renal replacement therapy. 3. History of colorectal cancer on chemotherapy/coronary artery disease status post CABG/hypertension/hyperlipidemia/diabetes mellitus Complicates care, management, recovery and prognosis. Continue home medications as indicated. This note was generated with [employer] software. It may contain incorrect words, spelling, and punctuation that were not noted in checking the note before signing. Inpatient E&M: 30541 Init Hosp L3
[2019-10-30] MEDS: Acetaminophen 325 MG Tablet 650 MG PO (06:45)
[2019-10-30 06:46] LABS: Bedside Glucose 214 mg/dL (70-110)
[2019-10-30] MEDS: Dext 5%-0.45% NS 1,000 ML 75 ML IV (07:00)
[2019-10-30 07:48] LABS: Thyroid Stim Hormone (TSH) 0.37 uIU/mL (0.358-3.74)
[2019-10-30] MEDS: Insulin Lispro 100 UNIT/ML INSULN.PEN SC ×4 (08:12→22:02)
[2019-10-30] MEDS: Aspirin 81 MG TAB.CHEW PO (08:13)
[2019-10-30] MEDS: oxyCODONE 5 MG Tablet PO ×3 (08:14→21:52)
[2019-10-30] MEDS: Glucerna Shake 120 ML LIQUID PO ×4 (09:13→21:46)
[2019-10-30] MEDS: Ascorbic Acid 500 MG Tablet PO (09:14)
[2019-10-30] MEDS: Pantoprazole Sodium 20 MG Tablet PO (09:14)
[2019-10-30] MEDS: Metoprolol Tartrate 25 MG Tablet 12.5 MG PO ×2 (09:14→21:52)
[2019-10-30] MEDS: DULoxetine Hcl 60 MG Capsule PO (09:14)
[2019-10-30] MEDS: Enoxaparin 40 MG/0.4 ML Syringe SC (09:14)
[2019-10-30] MEDS: Lisinopril 2.5 MG Tablet PO (09:15)
--- NOTE | 2019-10-30 09:15 | PCM.PROGNOTE ---
Subjective: Chief complaint: Follow-up after admission for severe sepsis secondary to acute cystitis, bacteremia and acute kidney injury. Patient seen and examined. No acute events overnight. This morning, he is feeling better. He denied abdominal pain, nausea or vomiting. He complained of dysuria, no hematuria. He had one spike of fever last night, and he has been afebrile since then. Heart rate has been around 100, other vital signs are stable. - Physical Exam Vitals/I&O's: Vital Signs Temp Pulse Resp BP Pulse Ox 98.7 F 103 H 21 H 143/78 H 96 10/30/19 08:00 10/30/19 09:14 10/30/19 09:00 10/30/19 09:14 10/30/19 09:00 Oxygen Delivery Method Room Air Weight: 143 lb 11.862 oz Body Mass Index (BMI) 21.2 Finger Stick Blood Glucose 363 Intake and Output for Last 24 Hours 10/28/19 10/29/19 10/30/19 23:59 23:59 23:59 Intake Total 1945.67 / 1945. 1729.16 / 1729.16 Balance 1945. / 172.16 / 1729.16 General: Alert, Oriented x3, Cooperative, No apparent distress HEENT: Atraumatic, PERRLA, EOMI, Normocephalic Oral: Moist Mucosa, No Gingival or Mucosal Lesions/ Ulcerations Neck: Supple, No JVD, Negative Carotid Bruits, Trachea Midline, Thyroid Normal Size and Texture Lungs: Clear to auscultation, Normal air movement, No rhonchi, No wheeze, No rales Cardiovascular: Regular rate, Regular Rhythm, Normal S1, Normal S2, PMI Normal, Tachycardic Abdomen: Bowel Sounds Present, Soft, Non Tender, Non-Distended, No Hepato-splenomegaly Extremities: No clubbing, No cyanosis, No edema Skin: No rashes, No breakdown Lymphatic: No Cervical, Supraclavicular, or Inguinal Adenopathy Neurological: Cranial nerves II-XII grossly intact, Neuro grossly intact Psych/Mental Status: Normal Affect, Appropriate Microbiology Past 72 Hours 10/29/19 20:00 Blood Culture (Wb) - Anticubital Left Blood Culture - Preliminary 10/29/19 20:30 Blood Culture (Wb) - Left Wrist Blood Culture - Preliminary 10/29/19 23:31 Mucosa - Nasopharyngeal Respiratory Panel (PCR) - Final Laboratory Results 10/29/19 20:00: Sodium 135 L, Potassium 5.1, Chloride 98, Carbon Dioxide 27.0, Anion Gap 10, BUN 33 H, Creatinine 1.59 H, Estim Creat Clear Calc 44.03, Est GFR (MDRD) Af Amer 57 L, Est GFR (MDRD) Non-Af 47 L, BUN/Creatinine Ratio 20.8 H, Glucose 386 H, Calcium 8.5, Total Bilirubin 0.60, AST 71 H, ALT 32, Alkaline Phosphatase 106, Total Protein 7.0, Albumin 3.1 L, Globulin 3.9, Albumin/Globulin Ratio 0.8 L 10/29/19 20:00: Lactic Acid 3.9 H* 10/29/19 20:00: WBC 7.7, RBC 4.18 L, Hgb 11.1 L, Hct 35.4 L, MCV 84.7, MCH 26.6 L, MCHC 31.4 L, RDW Std Deviation 49.3 H, RDW Coeff of Maia 16.0 H, Plt Count 164, MPV 9.7, Immature Gran % (Auto) 1.800 H, Neut % (Auto) 91.3 H, Lymph % (Auto) 1.9 L, [place] % (Auto) 4.9, Eos % (Auto) 0.0, Baso % (Auto) 0.1, Absolute Neuts (auto) 7.0, Absolute Lymphs (auto) 0.15 L, Nucleated RBC % 0, Differential Comment SCANNED, Platelet Estimate ADEQUATE, RBC Morphology NORM C+C 10/29/19 20:00: Magnesium 1.6 10/29/19 21:15: Urine Color Yellow, Urine Clarity Clear, Urine pH 5.0, Ur Specific [place] 1.015, Urine Protein 30 H, Urine Glucose (UA) 1000 H, Urine Ketones 50 H, Urine Occult Blood 150 H, Urine Nitrite Positive H, Urine Bilirubin Negative, Urine Urobilinogen Normal, Ur Leukocyte Esterase 100 H, Urine RBC 0-5 SEEN, Urine WBC 10-25 SEEN, Ur Squamous Epith Cells 0 SEEN, Urine Bacteria 2+, Urine Mucus 0 SEEN 10/29/19 22:26: POC Glucose 363 H 10/29/19 23:08: MRSA (PCR) Negative 10/29/19 23:56: POC Glucose 350 H 10/30/19 00:35: Lactic Acid 1.0 10/30/19 05:10: WBC 6.6, RBC 3.81 L, Hgb 10.0 L, Hct 32.2 L, MCV 84.5, MCH 26.2 L, MCHC 31.1 L, RDW Std Deviation 48.6 H, RDW Coeff of Maia 15.9 H, Plt Count 135 L, MPV 9.4, Immature Gran % (Auto) 0.900, Neut % (Auto) 85.5 H, Lymph % (Auto) 4.1 L, [place] % (Auto) 5.6, Eos % (Auto) 3.7, Baso % (Auto) 0.2, Absolute Neuts (auto) 5.6, Absolute Lymphs (auto) 0.27 L, Nucleated RBC % 0, Differential Comment SCANNED 10/30/19 05:10: Sodium 137, Potassium 4.4, Chloride 103, Carbon Dioxide 28.0, Anion Gap 6, BUN 26 H, Creatinine 1.03, Estim Creat Clear Calc 69.46, Est GFR (MDRD) Af Amer 94, Est GFR (MDRD) Non-Af 78, BUN/Creatinine Ratio 25.2 H, Glucose 224 H, Calcium 7.2 L, TSH 0.37 10/30/19 06:42: POC Glucose 214 H Clinical Impression(s) from Imaging Studies Renal Ultrasound 10/30/19 05:55 IMPRESSION: 6 mm nonobstructive left intrarenal calculus. Bladder wall thickening suggestive of trabeculation. Electronically Signed: Navdeep Gonzales, at 8:13 EDT , Service support , Current Medications Acetaminophen (Tylenol) 650 mg PO Q6H PRN PRN PRN Reason: Pain Score 1-10/Temp > 100.7 F Last Admin: 10/30/19 06:45 Dose: 650 mg Documented by: Albuterol Sulfate (Ventolin Aerosols) 2.5 mg INHALATION Q2H PRN PRN PRN Reason: SOB/Wheezing Ascorbic Acid (Vitamin C) 500 mg PO DAILY JENNI Last Admin: 10/30/19 09:14 Dose: 500 mg Documented by: Aspirin (Aspirin, Baby) 81 mg PO DAILYCM [facility] Last Admin: 10/30/19 08:13 Dose: 81 mg Documented by: Atorvastatin Calcium (Lipitor) 40 mg PO QHS [facility] Dextrose (D50w Syringe) 0 gm IV X1 PRN; Protocol PRN Reason: Hypoglycemia Duloxetine HCl (Cymbalta) 60 mg PO DAILY [facility] Last Admin: 10/30/19 09:14 Dose: 60 mg Documented by: Enoxaparin Sodium (Lovenox) 40 mg SC DAILY [facility] Last Admin: 10/30/19 09:14 Dose: 40 mg Documented by: Gabapentin (Neurontin) 100 mg PO TID [facility] Last Admin: 10/30/19 05:29 Dose: 100 mg Documented by: Glucagon () 1 mg IM .X1 PRN PRN Reason: Hypoglycemia Guaifenesin (Robitussin) 10 ml PO Q4H PRN PRN PRN Reason: COUGH Sodium Chloride () 250 mls @ 15 mls/hr IV .[id number] PRN PRN Reason: Saline Flush Sodium Chloride () 250 mls @ 15 mls/hr IV .[id number] PRN PRN Reason: Additional IVPB Infusion Piperacillin Sod/Tazobactam (Sod 3.375 gm/ Sodium Chloride) 50 mls @ 12.5 mls/hr IV Q8 [facility] Last Admin: 10/30/19 05:29 Dose: 12.5 mls/hr Documented by: Dextrose/Sodium Chloride () 1,000 mls @ 75 mls/hr IV .[id number] [facility] Last Admin: 10/30/19 07:00 Dose: 75 mls/hr Documented by: Insulin Glargine (Lantus (Bkc)) 50 units SC QHS [facility] Last Admin: 10/29/19 23:57 Dose: 50 units Documented by: Insulin Glargine (Lantus (Bkc)) 15 units SC BREAKFAST [facility] Last Admin: 10/30/19 08:13 Dose: 15 u Documented by: Insulin Human Lispro (Humalog Kwikpen (Bkc)) 0 unit SC ACHS [facility]; Protocol Last Admin: 10/30/19 08:12 Dose: 4 u Documented by: Lisinopril (Zestril) 2.5 mg PO DAILY [facility] Last Admin: 10/30/19 09:15 Dose: 2.5 mg Documented by: Metoprolol Tartrate (Lopressor (Beta Blanca)) 12.5 mg PO BID [facility] Last Admin: 10/30/19 09:14 Dose: 12.5 mg Documented by: Morphine Sulfate () 2 mg IV Q3H PRN PRN PRN Reason: Pain Score 6-10/10 Nutritional Formula (Lactose Free) (Glucerna Shake) 120 ml PO 4X/DAY [facility] Last Admin: 10/30/19 09:13 Dose: 120 ml Documented by: Oxycodone HCl (Oxyir) 5 mg PO Q4H PRN PRN PRN Reason: Pain Score 4-5/10 Last Admin: 10/30/19 08:14 Dose: 5 mg Documented by: Pantoprazole Sodium (Protonix) 20 mg PO DAILY [facility] Last Admin: 10/30/19 09:14 Dose: 20 mg Documented by: Prochlorperazine Edisylate (Compazine Iv) 5 mg IV Q4H PRN PRN PRN Reason: Breakthrough Nausea/Vomiting Senna/Docusate Sodium (Senokot-S, Lisbeth-Colace) 2 tablet PO BID PRN PRN PRN Reason: Constipation Sodium Chloride () 10 - 40 ml IV UD PRN PRN Reason: SALINE FLUSH Throat Lozenges (Cepacol Sore Throat Lozenge) 1 lozenge MUCOUS MEM Q2H PRN PRN PRN Reason: SORE THROAT Medical Necessity - Tobacco Use Smoking Status: Never smoker Assessment/Plan This is a 63 years old male patient presented to the emergency room because of fever and dysuria, found to have acute severe sepsis secondary to acute cystitis, acute kidney injury and bacteremia. #1 acute cystitis/acute severe sepsis: He is on IV Zosyn. He is a cancer patient, currently on chemotherapy. He has been afebrile overnight, heart rate has been around 100, blood pressure stable. Respiratory panel for viruses were negative. Lactic acid is back to normal with IV fluids. Urine cultures pending. Blood culture revealed gram-negative rods and gram-positive cocci, final is pending. Plan: Transfer to PCU, continue same treatment. #2 bacteremia: Probable source is the acute cystitis. Blood culture revealed gram-negative rods and gram-positive cocci. MRSA nasal screen is negative. Patient is on IV Zosyn as above. Plan: infectious disease consult. #3 acute kidney injury: Secondary to #1. Baseline kidney function is normal. Admission creatinine was 1.59, came down to 1.03 with IV fluids. Improving. #4 type 2 diabetes mellitus: Blood sugar has been fluctuating. Patient is on Lantus 50 nightly and 15 breakfast as well as sliding scale. Plan to monitor. #5 hypertension: Blood pressure stable, continue lisinopril and metoprolol. #6 hyperlipidemia: Continue statins. #7 CAD status post CABG and stents: Stable, no complaints. Continue aspirin, statins, lisinopril and metoprolol. #8 history of CVA: Stable, continue aspirin and statins. #9 chronic anemia/thrombocytopenia: Hemoglobin is at baseline. Platelet count is 135,000 which is likely because of chemotherapy. Plan to monitor. #10 DVT prophylaxis: Subcu Lovenox. This note was generated with [employer] dictation software. It may contain incorrect words, spelling, and punctuation that were not noted in checking the note before signing. Inpatient E&M: 77251 Subs Hosp L2
[2019-10-30] MEDS: 0.9% Normal Saline 1,000 ML 75 ML IV (10:11)
[2019-10-30 11:21] LABS: Bedside Glucose 235 mg/dL (70-110)
--- NOTE | 2019-10-30 14:09 | CASEMGMT ---
RN CM Assessment Note Presentation: Lactic Acidosis. Acute renal insufficiency. Intro role of CM and purpose of RN CM assessment to patient in room. Pt is in chair, awake, alert and able to participate in assessment. Demographics, PCP and Pharmacy verified. Pt states he has been more independent at home. Spouse helps him at home if needed. PCP: Dr. Pedroza Preferred Pharmacy: [facility] Insurance: [facility] primary, M[facility] A secondary Prescription Benefit: yes LNOK : Spouse, Emelia Haji Living Arrangements: Lives in one story home with . Has ZBD Displays cane, grab bars Transportation: pt states is having difficulty with transportation as family works and needs to schedule appts around their schedules DME: quad cane, grab bars HHC: none in past; SNF: pt states he was in Inpt Rehab in past- per hospital record, was 2011 Patient DC goals: Home DC PLAN: anticipate Home. Pt may need PT/OT on dc with HHC. Has [facility]- let pt know if HHC is recommended, list of Inpt providers would be given and reviewed with him. RN CM advised to contact cm for any concerns/needs that may arise. Preet CRUZN RN ACM
[2019-10-30] MEDS: Vancomycin IV 1,000 MG/200 ML BAG 200 MG IV (14:50)
--- NOTE | 2019-10-30 15:01 | PCM.RX.CS ---
Consult Pharmacy has been consulted to manage selected antiobiotic: Vancomycin Type of Consult: New start Suspected Infection: Sepsis, Bacteremia Prior Doses of Antibiotics Received/Current Regimen: the patient received vancomycin 1750mg IV x1 (25mg/kg load) in E.R. last night 10/29/19 starting at 22:27 Labs: Sodium 137 mmol/L (136-145) 10/30/19 05:10 Potassium 4.4 mmol/L (3.5-5.1) 10/30/19 05:10 Chloride 103 mmol/L (98-107) 10/30/19 05:10 Carbon Dioxide 28.0 mmol/L (21.0-32.0) 10/30/19 05:10 Anion Gap 6 (5-15) 10/30/19 05:10 BUN 26 mg/dL (7-18) H 10/30/19 05:10 Creatinine 1.03 mg/dL (0.70-1.30) 10/30/19 05:10 Est GFR (MDRD) Af Amer 94 mL/min (>60) 10/30/19 05:10 Est GFR (MDRD) Non-Af 78 mL/min (>60) 10/30/19 05:10 BUN/Creatinine Ratio 25.2 RATIO (10-20) H 10/30/19 05:10 Glucose 224 mg/dL (74-106) H 10/30/19 05:10 Microbiology: Microbiology 10/29/19 20:30 Blood Culture (Wb) - Left Wrist Bacteria Detection (PCR) - Final 10/29/19 20:30 Blood Culture (Wb) - Left Wrist Blood Culture - Preliminary 10/29/19 21:15 Urine, Clean Catch Urine Culture - 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 A trough will be ordered to be drawn before the 4th total dose tomorrow. Pharmacy Service will continue to monitor and adjust dosing as required. Follow-Up Labs: Trough Vancomycin Labs to be done on [date and time ordered]: 10/31/19 14:30
[2019-10-30 16:20] LABS: Bedside Glucose 232 mg/dL (70-110)
--- NOTE | 2019-10-30 16:34 | PCM.HP.ID ---
Reason for Consult: bacteremia Consulted by: Dr. Chavira History of Present Illness: The patient is a 63 year old M with colorectal cancer, on chemo via port, presented yesterday with several days of fever, not feeling well, fatigue, n/v. Emesis was black. No issues with R chest port. No dysuria, no diarrhea, no abd pain, no cough or SOB. No travel, no sick contacts. Came to ED, fever to 101.4, given vanc/zosyn, feeling better today. Had some congestion and headache on R frontal region, now resolved. Has h/o sinusitis. Full ROS performed and neg except as noted above. - Medical History Past Medical History (Chronic Problems): Chronic Problems (Last Updated 10/30/19 @ 08:[address] Arti Chavira MD) TIA (transient ischemic attack) (Chronic) Ischemic cardiomyopathy (Chronic) Rectal cancer (Chronic) Obstructive sleep apnea (Chronic) Restrictive lung disease (Chronic) Type 2 diabetes mellitus (Chronic) Anxiety disorder (Chronic) GERD (gastroesophageal reflux disease) (Chronic) Carotid artery disease (Chronic) S/P right and left heart catheterization (Chronic 01/22/15) History of coronary artery stent placement (Chronic 01/02/15) [id number] 01/02/15 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) H/O coronary artery bypass surgery (Chronic 05/30/08) CABG x 5 05/30/2008 ZUNIGA-LAD and D1, Free KIMBERLYN-PDA, SVG-Ramus, SVG-OM1 Peripheral vascular occlusive disease (Chronic) CVA (cerebral vascular accident) (Chronic) cerebellar stroke Right endarterectomy HTN (hypertension) (Chronic) Dyslipidemia (Chronic) ALEJANDRO (obstructive sleep apnea) (Chronic) Allergies/Adverse Reactions: Allergies No Known Allergies Allergy (Verified 10/29/19 19:27) Home Medications: Ambulatory Orders Medication Instructions Recorded Aspirin 81 mg PO DAILY 03/20/16 Duloxetine HCl 60 mg PO DAILY 03/20/16 insulin lispro 100 unit/mL See Rx Instructions SC .COMPLEX 04/02/18 subcutaneous pen #60 ml Insulin Detemir [Levemir FlexPen] 70 unit SUBCUT QHS 05/02/19 Ascorbic Acid [Vitamin C] 500 mg PO DAILY #30 tab.chew 05/05/19 metoprolol tartrate 25 mg tablet 12.5 mg PO BID #90 tab 09/26/19 omeprazole 20 mg capsule,delayed 20 mg PO DAILY #90 cap 09/26/19 release gabapentin 100 mg capsule 100 mg PO TID 10/07/19 Lisinopril [Prinivil] 2.5 mg PO DAILY 10/09/19 Rosuvastatin Calcium 20 mg PO QHS 10/29/19 - Social History Tobacco Use: non-smoker Vital Signs Temp Pulse Resp BP Pulse Ox 98.7 F 92 16 126/78 H 94 10/30/19 16:19 10/30/19 16:19 10/30/19 16:19 10/30/19 16:19 10/30/19 16:19 Oxygen Delivery Method Room Air Weight: 65.2 kg Body Mass Index (BMI) 21.2 Finger Stick Blood Glucose 363 Microbiology Past 72 Hours 10/29/19 20:30 Bacteria Detection (PCR) - Final Blood Culture (Wb) - Left Wrist Blood Culture - Preliminary 10/29/19 21:15 Urine Culture - Preliminary Urine, Clean Catch 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 10/29/19 20:00 Blood Culture - Preliminary Blood Culture (Wb) - Anticubital Left 10/29/19 23:31 Respiratory Panel (PCR) - Final Mucosa - Nasopharyngeal Laboratory Tests Past 24 Hrs 10/29/19 10/29/19 10/29/19 20:00 20:00 20:00 WBC 7.7 RBC 4.18 L Hgb 11.1 L Hct 35.4 L MCV 84.7 MCH 26.6 L MCHC 31.4 L RDW Std Deviation 49.3 H RDW Coeff of Maia 16.0 H Plt Count 164 MPV 9.7 Immature Gran % (Auto) 1.800 H Neut % (Auto) 91.3 H Lymph % (Auto) 1.9 L [place] % (Auto) 4.9 Eos % (Auto) 0.0 Baso % (Auto) 0.1 Absolute Neuts (auto) 7.0 Absolute Lymphs (auto) 0.15 L Nucleated RBC % 0 Differential Comment SCANNED Platelet Estimate ADEQUATE RBC Morphology NORM C+C Sodium 135 L Potassium 5.1 Chloride 98 Carbon Dioxide 27.0 Anion Gap 10 BUN 33 H Creatinine 1.59 H Estim Creat Clear Calc 44.03 Est GFR (MDRD) Af Amer 57 L Est GFR (MDRD) Non-Af 47 L BUN/Creatinine Ratio 20.8 H Glucose 386 H Lactic Acid 3.9 H* Calcium 8.5 Magnesium Total Bilirubin 0.60 AST 71 H ALT 32 Alkaline Phosphatase 106 Total Protein 7.0 Albumin 3.1 L Globulin 3.9 Albumin/Globulin Ratio 0.8 L TSH Urine Color Urine Clarity Urine pH Ur Specific [place] Urine Protein Urine Glucose (UA) Urine Ketones Urine Occult Blood Urine Nitrite Urine Bilirubin Urine Urobilinogen Ur Leukocyte Esterase Urine RBC Urine WBC Ur Squamous Epith Cells Urine Bacteria Urine Mucus MRSA (PCR) 10/29/19 10/29/19 10/29/19 20:00 21:15 23:08 WBC RBC Hgb Hct MCV MCH MCHC RDW Std Deviation RDW Coeff of Maia Plt Count MPV Immature Gran % (Auto) Neut % (Auto) Lymph % (Auto) [place] % (Auto) Eos % (Auto) Baso % (Auto) Absolute Neuts (auto) Absolute Lymphs (auto) Nucleated RBC % Differential Comment Platelet Estimate RBC Morphology Sodium Potassium Chloride Carbon Dioxide Anion Gap BUN Creatinine Estim Creat Clear Calc Est GFR (MDRD) Af Amer Est GFR (MDRD) Non-Af BUN/Creatinine Ratio Glucose Lactic Acid Calcium Magnesium 1.6 Total Bilirubin AST ALT Alkaline Phosphatase Total Protein Albumin Globulin Albumin/Globulin Ratio TSH Urine Color Yellow Urine Clarity Clear Urine pH 5.0 Ur Specific [place] 1.015 Urine Protein 30 H Urine Glucose (UA) 1000 H Urine Ketones 50 H Urine Occult Blood 150 H Urine Nitrite Positive H Urine Bilirubin Negative Urine Urobilinogen Normal Ur Leukocyte Esterase 100 H Urine RBC 0-5 SEEN Urine WBC 10-25 SEEN Ur Squamous Epith Cells 0 SEEN Urine Bacteria 2+ Urine Mucus 0 SEEN MRSA (PCR) Negative 10/30/19 10/30/19 10/30/19 00:35 05:10 05:10 WBC 6.6 RBC 3.81 L Hgb 10.0 L Hct 32.2 L MCV 84.5 MCH 26.2 L MCHC 31.1 L RDW Std Deviation 48.6 H RDW Coeff of Maia 15.9 H Plt Count 135 L MPV 9.4 Immature Gran % (Auto) 0.900 Neut % (Auto) 85.5 H Lymph % (Auto) 4.1 L [place] % (Auto) 5.6 Eos % (Auto) 3.7 Baso % (Auto) 0.2 Absolute Neuts (auto) 5.6 Absolute Lymphs (auto) 0.27 L Nucleated RBC % 0 Differential Comment SCANNED Platelet Estimate RBC Morphology Sodium 137 Potassium 4.4 Chloride 103 Carbon Dioxide 28.0 Anion Gap 6 BUN 26 H Creatinine 1.03 Estim Creat Clear Calc 69.46 Est GFR (MDRD) Af Amer 94 Est GFR (MDRD) Non-Af 78 BUN/Creatinine Ratio 25.2 H Glucose 224 H Lactic Acid 1.0 Calcium 7.2 L Magnesium Total Bilirubin AST ALT Alkaline Phosphatase Total Protein Albumin Globulin Albumin/Globulin Ratio TSH 0.37 Urine Color Urine Clarity Urine pH Ur Specific [place] Urine Protein Urine Glucose (UA) Urine Ketones Urine Occult Blood Urine Nitrite Urine Bilirubin Urine Urobilinogen Ur Leukocyte Esterase Urine RBC Urine WBC Ur Squamous Epith Cells Urine Bacteria Urine Mucus MRSA (PCR) - Other Studies Radiology: [] reviewed Other Studies: [] Route of nutrition/ use of supplements: [] Nutritional Intake: [] IV Site: [] Robb Catheter: [] - Physical Exam General: Alert, Oriented x3, Cooperative, No apparent distress HEENT: Atraumatic, PERRLA, EOMI Neck: Supple, No Nodes Lungs: Clear to auscultation, Normal air movement Cardiovascular: No murmurs, Tachycardic Abdomen: Soft, Non Tender, Non-Distended Extremities: No edema Skin: No rashes IV Site: Central Line, without redness Musculoskeletal: No Tenderness to Palpation of Joints or Extremities Neurological: Cranial nerves II-XII grossly intact - Assessment/Plan Antibiotics: [] Assessment/Plan: [] severe sepsis with GNR/GPC bacteremia - sx associated with n/v. Mild transaminitis, otherwise LFTs are normal. On zosyn, will restart vanc due to presence of port. UA with mild pyuria, and Ucx with heavy growth of GNR. Resp pcr panel neg. Repeat bcx today. MADELEINE resolved. Will follow, thank you.
[2019-10-30] MEDS: Mag Hydrox/Al Hydrox/Simeth 30 ML UDC PO (20:24)
[2019-10-30] MEDS: Atorvastatin Calcium 40 MG Tablet PO (21:52)
[2019-10-30 22:21] LABS: Bedside Glucose 276 mg/dL (70-110)
[2019-10-31] VITALS (13 sets, daily range): BP systolic 128–153; BP diastolic 63–86; PULSE 84–127; RESP 16–18; TEMP 36.5–37.5; O2SAT 91–96
[2019-10-31] MEDS: 0.9% Normal Saline 1,000 ML 75 ML IV ×2 (00:01→13:33)
[2019-10-31] MEDS: Mag Hydrox/Al Hydrox/Simeth 30 ML UDC PO (02:25)
[2019-10-31] MEDS: oxyCODONE 5 MG Tablet PO (02:30)
[2019-10-31] MEDS: Acetaminophen 325 MG Tablet 650 MG PO (02:30)
[2019-10-31] MEDS: Vancomycin IV 1,000 MG/200 ML BAG 200 MG IV (03:26)
[2019-10-31] MEDS: Gabapentin 100 MG Capsule PO ×3 (05:56→21:40)
[2019-10-31] MEDS: Aspirin 81 MG TAB.CHEW PO (07:56)
[2019-10-31 09:16] LABS: Bedside Glucose 128 mg/dL (70-110)
[2019-10-31] MEDS: Enoxaparin 40 MG/0.4 ML Syringe SC (11:00)
[2019-10-31] MEDS: Metoprolol Tartrate 25 MG Tablet 12.5 MG PO ×2 (11:01→21:40)
[2019-10-31] MEDS: Lisinopril 2.5 MG Tablet PO (11:02)
[2019-10-31] MEDS: Ascorbic Acid 500 MG Tablet PO (11:02)
[2019-10-31] MEDS: DULoxetine Hcl 60 MG Capsule PO (11:02)
[2019-10-31] MEDS: Pantoprazole Sodium 20 MG Tablet PO (11:03)
[2019-10-31] MEDS: Glucerna Shake 120 ML LIQUID PO ×4 (11:04→21:42)
[2019-10-31 12:10] LABS: Bedside Glucose 137 mg/dL (70-110)
--- NOTE | 2019-10-31 14:30 | CT_ITS ---
STUDY: CT ABDOMEN AND PELVIS WITH CONTRAST REASON FOR EXAM: Male, 63 years old. SEPSIS, HX OF CABG, PVC, CAD, CVA, DB, HTN, RECTAL ADENOCARCINOMA, CHEMO RADIATION DOSAGE (If Supplied By Facility): CTDIvol = ( 9.605 ) mGy, DLP = ( 543.82 ) mGycm TECHNIQUE: Transaxial images were obtained from the dome of the diaphragm to the symphysis pubis without oral contrast. Oral and amp; IV Gastrografin and amp; 100mL Isovue-300 was administered. Sagittal and coronal images were reconstructed. Individualized dose optimization techniques were used for this CT. COMPARISON: None. FINDINGS: There is prominent interstitial thickening or subsegmental atelectasis in both lower lobes.. The heart is enlarged. There is a small hiatal hernia.. Liver is enlarged and fatty infiltrated. There is a small hemangioma in the right lobe. Bile ducts are not dilated.. Normal gallbladder and extrahepatic biliary system. Normal spleen. Normal pancreas. Normal bilateral adrenal glands. Normal right kidney. Normal left kidney. Normal visualized stomach. Mild nonspecific ileus with diffuse fecal retention throughout the colon. The appendix is visualized and appears normal. Atherosclerotic changes of the aorta without evidence for aneurysm. Normal inferior vena cava. Normal retroperitoneum. Incompletely distended thick-walled bladder likely of no significance Mild nonspecific prominence of the prostate Small fat-containing right inguinal hernia.. Normal osseous structures. CT/Abdomen/Pelvis WITH Contrast IMPRESSION: Mild nonspecific ileus with diffuse retention in the colon.. Enlarged fatty infiltrated liver with small hemangioma in the right lobe. Electronically Signed: Jethro Sánchez MD at 17:35 EDT , Service support ,
--- NOTE | 2019-10-31 15:16 | PN_ITS ---
Subjective: Patient was seen and examined today, he denies any fevers or chills, T-max has been 99.5 over the last 24 hours. Patient's blood culture drawn yesterday was positive for gram-positive cocci in the anaerobic bottle and also positive for gram-negative rods. I discussed this with infectious diseases today and they felt it was okay to take the patient off vancomycin. Infectious diseases requested that we obtain a CT of the abdomen and pelvis with IV and oral contrast to rule out abscess. Patient will have another blood culture tomorrow morning. - Physical Exam Vitals/I&O's: Vital Signs Temp Pulse Resp BP Pulse Ox 98.1 F 91 16 138/76 H 92 10/31/19 10:58 10/31/19 11:01 10/31/19 10:58 10/31/19 11:01 10/31/19 13:59 Oxygen Flow Rate (L/min) 2 Oxygen Delivery Method Room Air Weight: 65.9 kg Body Mass Index (BMI) 21.2 Finger Stick Blood Glucose 363 Intake and Output for Last 24 Hours 10/29/19 10/30/19 10/31/19 23:59 23:59 23:59 Intake Total 1946.67 / 1946.67 3034.16 / 3354.16 2648.75 / 2648.75 Output Total 200 / 1250 1425 / 1425 Balance 1946.67 / 1946.67 2834.16 / 2104.16 1223.75 / 1223.75 General: Alert, Oriented x3, Cooperative, No apparent distress, Well developed, Well nourished HEENT: Atraumatic, PERRLA, EOMI, Normocephalic Oral: Moist Mucosa Neck: Supple, No JVD, Trachea Midline, Thyroid Normal Size and Texture Lungs: Clear to auscultation, Normal air movement, No rhonchi, No wheeze, No rales Cardiovascular: Regular rate, Regular Rhythm, Normal S1, Normal S2, No murmurs, PMI Normal, No rub noted, No Gallop Abdomen: Bowel Sounds Present, Soft, Non Tender, Non-Distended Extremities: No clubbing, No cyanosis, No edema, Capillary Refill Less than 3 Seconds Skin: No rashes, No breakdown Musculoskeletal: No Tenderness to Palpation of Joints or Extremities Neurological: Cranial nerves II-XII grossly intact, Neuro grossly intact, Muscle tone normal, Sensory exam intact to light touch and pain, Coordination normal Psych/Mental Status: Normal Affect, Appropriate, Alert and oriented to time, place, person, mood and affect Microbiology Past 72 Hours 10/30/19 17:05 Blood Culture (Wb) - Anticubital Right Blood Culture - Preliminary 10/29/19 20:30 Blood Culture (Wb) - Left Wrist Bacteria Detection (PCR) - Final 10/29/19 20:30 Blood Culture (Wb) - Left Wrist Blood Culture - 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 lactose inside sales representative Anaerobic cocci 10/29/19 21:15 Urine, Clean Catch Urine Culture - Final Klebsiella pneumoniae sp pneum 10/29/19 20:00 Blood Culture (Wb) - Anticubital Left Blood Culture - Preliminary 10/29/19 23:31 Mucosa - Nasopharyngeal Respiratory Panel (PCR) - Final Laboratory Results 10/30/19 16:17: POC Glucose 232 H 10/30/19 21:59: POC Glucose 276 H 10/31/19 07:43: POC Glucose 128 H 10/31/19 10:57: POC Glucose 137 H 10/31/19 14:38: Vancomycin Trough Cancelled Current Medications Acetaminophen (Tylenol) 650 mg PO Q6H PRN PRN PRN Reason: Pain Score 1-10/Temp > 100.7 F Last Admin: 10/31/19 02:30 Dose: 650 mg Documented by: Al Hydroxide/Mg Hydroxide (Mylanta Ii) 30 ml PO Q6H PRN PRN PRN Reason: .INDIGESTION Last Admin: 10/31/19 02:25 Dose: 30 ml Documented by: Albuterol Sulfate (Ventolin Aerosols) 2.5 mg INHALATION Q2H PRN PRN PRN Reason: SOB/Wheezing Ascorbic Acid (Vitamin C) 500 mg PO DAILY [facility] Last Admin: 10/31/19 11:02 Dose: 500 mg Documented by: [facility], [facility] Last Admin: 10/31/19 07:56 Dose: 81 mg Documented by: Atorvastatin Calcium (Lipitor) 40 mg PO QHS [facility] Last Admin: 10/30/19 21:52 Dose: 40 mg Documented by: Dextrose (D50w Syringe) 0 gm IV X1 PRN; Protocol PRN Reason: Hypoglycemia Duloxetine HCl (Cymbalta) 60 mg PO DAILY [facility] Last Admin: 10/31/19 11:02 Dose: 60 mg Documented by: Enoxaparin Sodium (Lovenox) 40 mg SC DAILY [facility] Last Admin: 10/31/19 11:00 Dose: 40 mg Documented by: Gabapentin (Neurontin) 100 mg PO TID [facility] Last Admin: 10/31/19 13:29 Dose: 100 mg Documented by: Glucagon () 1 mg IM .X1 PRN PRN Reason: Hypoglycemia Guaifenesin (Robitussin) 10 ml PO Q4H PRN PRN PRN Reason: COUGH Sodium Chloride () 250 mls @ 15 mls/hr IV .[id number] PRN PRN Reason: Saline Flush Sodium Chloride () 250 mls @ 15 mls/hr IV .[id number] PRN PRN Reason: Additional IVPB Infusion Piperacillin Sod/Tazobactam (Sod 3.375 gm/ Sodium Chloride) 50 mls @ 12.5 mls/hr IV Q8 [facility] Last Admin: 10/31/19 13:33 Dose: 12.5 mls/hr Documented by: Sodium Chloride () 1,000 mls @ 75 mls/hr IV .[id number] [facility] Last Admin: 10/31/19 13:33 Dose: 75 mls/hr Documented by: Insulin Glargine (Lantus (Bkc)) 50 units SC QHS [facility] Last Admin: 10/30/19 22:02 Dose: 50 units Documented by: Insulin Glargine (Lantus (Bkc)) 15 units SC BREAKFAST [facility] Last Admin: 10/31/19 07:56 Dose: 15 u Documented by: Insulin Human Lispro (Humalog Kwikpen (Bk)) 0 unit SC ACHS [facility]; Protocol Last Admin: 10/31/19 11:03 Dose: Not Given Documented by: Lisinopril (Zestril) 2.5 mg PO DAILY [facility] Last Admin: 10/31/19 11:02 Dose: 2.5 mg Documented by: Metoprolol Tartrate (Lopressor (Beta Blanca)) 12.5 mg PO BID [facility] Last Admin: 10/31/19 11:01 Dose: 12.5 mg Documented by: Morphine Sulfate () 2 mg IV Q3H PRN PRN PRN Reason: Pain Score 6-10/10 Nutritional Formula (Lactose Free) (Glucerna Shake) 120 ml PO 4X/DAY [facility] Last Admin: 10/31/19 13:29 Dose: 120 ml Documented by: Oxycodone HCl (Oxyir) 5 mg PO Q4H PRN PRN PRN Reason: Pain Score 4-5/10 Last Admin: 10/31/19 02:30 Dose: 5 mg Documented by: Pantoprazole Sodium (Protonix) 20 mg PO DAILY [facility] Last Admin: 10/31/19 11:03 Dose: 20 mg Documented by: Prochlorperazine Edisylate (Compazine Iv) 5 mg IV Q4H PRN PRN PRN Reason: Breakthrough Nausea/Vomiting Senna/Docusate Sodium (Senokot-S, Lisbeth-Colace) 2 tablet PO BID PRN PRN PRN Reason: Constipation Sodium Chloride () 10 - 40 ml IV UD PRN PRN Reason: SALINE FLUSH Throat Lozenges (Cepacol Sore Throat Lozenge) 1 lozenge MUCOUS MEM Q2H PRN PRN PRN Reason: SORE THROAT Medical Necessity - Tobacco Use Smoking Status: Never smoker Assessment/Plan #1 severe sepsis secondary to bacteremia with suspected Klebsiella pneumoniae and anaerobic gram-positive cocci-final identities are unknown at this time on both gram-negative and gram-positive bacteria, continue Zosyn, repeat blood cultures tomorrow, CT of the abdomen and pelvis with IV and oral contrast was ordered this afternoon. #2 type 2 diabetes-continue present treatment, monitor blood sugars #3 coronary artery disease #4 dehydration-patient's creatinine yesterday was normal #5 essential hypertension #6 rectal cancer-adenocarcinoma #7 restrictive lung disease-mild #8 Central sleep apnea #9 obstructive sleep apnea Inpatient E&M: 108[address] [facility] L[facility]
--- NOTE | 2019-10-31 16:04 | CASEMGMT ---
RN CM Note: HHC recommended for pt. RASHI ARVIZU intro role of CM and discussed options for HHC. Per [facility] website- closest available was [facility] in [place] and [facility] [place]. Others were in [place] and [place]. Directory printed, but pt is agreeable to either [facility] or [facility] [place]. Call to [facility] to see if they can accept referral. Referral faxed to [facility] @ . PH: -Pt would like to speak with his ari, but is confident they will wish to have HHS on dc. Preet CRUZN RN ACM
[2019-10-31 16:25] LABS: Bedside Glucose 206 mg/dL (70-110)
[2019-10-31] MEDS: Insulin Lispro 100 UNIT/ML INSULN.PEN SC ×2 (17:36→21:41)
[2019-10-31] MEDS: Atorvastatin Calcium 40 MG Tablet PO (21:40)
[2019-10-31 21:51] LABS: Bedside Glucose 212 mg/dL (70-110)
[2019-11-01] MEDS: 0.9% Normal Saline 1,000 ML 75 ML IV (01:37)
[2019-11-01 02:59] VITALS: PULSE 91
[2019-11-01 03:35] VITALS: BP 128/70; PULSE 91; RESP 16; TEMP 36.7; O2SAT 95
[2019-11-01] MEDS: Gabapentin 100 MG Capsule PO (05:38)
[2019-11-01 06:56] LABS: Bedside Glucose 129 mg/dL (70-110)
[2019-11-01 06:57] VITALS: O2SAT 93
[2019-11-01 07:02] VITALS: PULSE 86
--- NOTE | 2019-11-01 08:52 | PCM.DC ---
You will use the following diet at home:: Calorie/Carbohydrate Controlled (specify 1200, 1400, etc) - 1800 maria guadalupe Your food should be the consistency of: Regular Your liquids should be the consistency of: Regular/Thin Discharge Activity: Return to Normal Activity Weight Bearing Status: Full weight bearing Allergies/Adverse Reactions: Allergies No Known Allergies Allergy (Verified 10/29/19 19:27) Medications to take at Discharge Aspirin 81 mg PO DAILY 03/20/16 Duloxetine HCl 60 mg PO DAILY 03/20/16 insulin lispro 100 unit/mL subcutaneous pen See Rx Instructions SC .COMPLEX #60 ml 04/02/18 Insulin Detemir [Levemir FlexPen] 70 unit SUBCUT QHS 05/02/19 Ascorbic Acid [Vitamin C] 500 mg PO DAILY #30 tab.chew 05/05/19 metoprolol tartrate 25 mg tablet 12.5 mg PO BID #90 tab 09/26/19 omeprazole 20 mg capsule,delayed release 20 mg PO DAILY #90 cap 09/26/19 gabapentin 100 mg capsule 100 mg PO TID 10/07/19 Lisinopril [Prinivil] 2.5 mg PO DAILY 10/09/19 Rosuvastatin Calcium 20 mg PO QHS 10/29/19 Cefadroxil [Duracef] 1,000 mg PO BID #30 cap 11/01/19 The following prescriptions were given: Cefadroxil [Duracef] 1,000 mg PO BID #30 cap Transmission Status: Pending to [facility] Primary Care Physician: Kendy Modi MD [Primary Care Provider] - Please follow up with your Primary Care Physician in: as scheduled Test Results: Test results from this visit will be discussed in further detail at your follow-up appointment, if applicable. Please Follow Up With: Dwayne Leonardo DO When: as directed
[2019-11-01 09:00] LABS: Absolute Lymphocyte Count 0.36 X10^3/uL (0.83-4.51); Absolute Neutrophil Count 2.5 X10^3/uL (2.0-7.7); Basophil# 0.01 X10^3/uL; Basophil% 0.3 % (0-1); Eosinophil# 0.03 X10^3/uL; Eosinophils% 0.9 % (0-5); Hematocrit 29.6 % (40-54); Hemoglobin 9.2 g/dL (13.0-16.5); Lymphocyte # 0.36 X10^3/ul (4.0); Lymphocyte % 10.8 % (19-41); Mean Corp Hgb Conc 31.1 g/dL (32-36); Mean Corpuscular Hgb 26.4 pg (27.0-32.0); Mean Corpuscular Volume 84.8 fL (80-94); Mean Platelet Vol. 9.3 fl (6.2-12.0); Monocyte# 0.41 X10^3/uL; Monocyte% 12.3 % (0-10); NRBC Flagged by Analyzer 0.6 % (0-5); Neutrophil % 75.1 % (47-70); POSITIVE DIFFERENTIAL YES; POSITIVE MORPHOLOGY YES; Platelet Count 108 K/mm3 (150-450); RBC Distribution Width CV 15.4 % (11.6-14.6); RBC Distribution Width SD 46.8 fl (35.1-43.9); Red Blood Count 3.49 M/mm3 (4.6-6.2); White Blood Count 3.3 K/mm3 (4.4-11.0)
[2019-11-01 09:01] LABS: Differential Indicated SCAN CRITERIA MET
[2019-11-01 09:06] VITALS: BP 137/70; PULSE 89; RESP 16; TEMP 37.2; O2SAT 97
[2019-11-01] MEDS: Enoxaparin 40 MG/0.4 ML Syringe SC (09:06)
[2019-11-01] MEDS: Glucerna Shake 120 ML LIQUID PO (09:06)
[2019-11-01 09:07] VITALS: PULSE 89
[2019-11-01] MEDS: Pantoprazole Sodium 20 MG Tablet PO (09:07)
[2019-11-01] MEDS: Ascorbic Acid 500 MG Tablet PO (09:07)
[2019-11-01] MEDS: Lisinopril 2.5 MG Tablet PO (09:07)
[2019-11-01] MEDS: DULoxetine Hcl 60 MG Capsule PO (09:07)
[2019-11-01] MEDS: Metoprolol Tartrate 25 MG Tablet 12.5 MG PO (09:07)
[2019-11-01] MEDS: Aspirin 81 MG TAB.CHEW PO (09:07)
--- NOTE | 2019-11-01 09:07 | CASEMGMT ---
RASHI ARVIZU Note: Pt to dc today. RASHI ARVIZU spoke with patient who has declined HHC stating his granddaughter will be home to assist him. Call to [facility] @ [facility] to update. Preet FERNANDEZ RN ACM
--- NOTE | 2019-11-01 09:40 | PHA.DC.MC ---
Pharmacy Service has performed discharge medication reconciliation and counseling for this patient. 1. CEFADROXIL 1000MG PO BID The patient's discharge medication list was reviewed for discrepancies and discrepancies were resolved. Home Medications Aspirin 81 mg PO DAILY 03/20/16 Duloxetine HCl 60 mg PO DAILY 03/20/16 insulin lispro 100 unit/mL subcutaneous pen See Rx Instructions SC .COMPLEX #60 ml 04/02/18 Insulin Detemir [Levemir FlexPen] 70 unit SUBCUT QHS 05/02/19 Ascorbic Acid [Vitamin C] 500 mg PO DAILY #30 tab.chew 05/05/19 metoprolol tartrate 25 mg tablet 12.5 mg PO BID #90 tab 09/26/19 omeprazole 20 mg capsule,delayed release 20 mg PO DAILY #90 cap 09/26/19 gabapentin 100 mg capsule 100 mg PO TID 10/07/19 Lisinopril [Prinivil] 2.5 mg PO DAILY 10/09/19 Rosuvastatin Calcium 20 mg PO QHS 10/29/19 Cefadroxil [Duracef] 1,000 mg PO BID #30 cap 11/01/19 The patient was counseled on the following discharge medications and changes in medications for homegoing were reviewed. The Reason for Use, instructions for use, and potential side effects were reviewed for all new medications. The patient's questions regarding all of their medications were answered. The patient was able to verbally demonstrate an understanding of their discharge medications.
[2019-11-01 10:11] LABS: Reactive Lymphocyte RARE
[2019-11-01 11:39] LABS: Pathologist Review Reviewed
--- NOTE | 2019-11-01 13:46 | DS.PCM_ITS ---
Discharge Date and Diagnosis Date of Admission: 10/29/19 Date of Discharge: 11/01/19 - Primary Discharge Diagnosis #1 severe sepsis secondary to bacteremia with Klebsiella pneumoniae #2 type 2 diabetes #3 coronary artery disease #4 dehydration #5 essential hypertension #6 rectal cancer-adenocarcinoma #7 restrictive lung disease-mild #8 Central sleep apnea #9 obstructive sleep apnea - Secondary Discharge Diagnosis Chronic Problems (Last Updated 10/30/19 @ 08:[address] Arti Chavira MD) TIA (transient ischemic attack) (Chronic) Ischemic cardiomyopathy (Chronic) Rectal cancer (Chronic) Obstructive sleep apnea (Chronic) Restrictive lung disease (Chronic) Type 2 diabetes mellitus (Chronic) Anxiety disorder (Chronic) GERD (gastroesophageal reflux disease) (Chronic) Carotid artery disease (Chronic) S/P right and left heart catheterization (Chronic 01/22/15) History of coronary artery stent placement (Chronic 01/02/15) TZC-TOT-ODT-Ramus 01/02/15 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) H/O coronary artery bypass surgery (Chronic 05/30/08) CABG x 5 05/30/2008 ZUNIGA-LAD and D1, Free KIMBERLYN-PDA, SVG-Ramus, SVG-OM1 Peripheral vascular occlusive disease (Chronic) CVA (cerebral vascular accident) (Chronic) cerebellar stroke Right endarterectomy HTN (hypertension) (Chronic) Dyslipidemia (Chronic) ALEJANDRO (obstructive sleep apnea) (Chronic) Hospital Course and Treatment Operations: None Procedures: None Summary of Care Provided: The patient is a 63 year old M was seen in the emergency room at [facility] with complaints of fever at home. Patient is presently under treatment for rectal cancer and is receiving chemotherapy. Work-up in the emergency room showed the patient's white blood cell count to be 7.7, patient's temperature in the emergency room initially was 97.8, on recheck it was 101.4. Chemistry panel was remarkable for a creatinine of 1.59, BUN of 33, and the patient's lactic acid was elevated at 3.9. Chest x-ray was read out as showing a focal left basilar infiltrate or atelectasis, this was not thought to represent a pneumonia. Urinalysis showed +2 bacteria and 10-25 WBCs and positive nitrite. Patient was felt to have severe sepsis from a suspected urinary tract infection, he was placed on IV antibiotics and cultures were obtained in the emergency room. Patient was initially admitted to ICU, he was seen in consultation by critical care, the following day it was felt that he was stable for transfer to PCU, blood cultures initially returned positive for gram- negative organism and a gram-positive organism, infectious diseases were consulted to see the patient and the patient was placed on vancomycin in addition to Zosyn. Repeat cultures also turned up positive initially for these 2 organisms, urine culture returned positive for Klebsiella pneumoniae. Due to the multiple positive blood cultures and the possibility that the patient had a gram-positive cocci in the blood, CT of the abdomen and pelvis was obtained to look for evidence of an abscess-none was seen and there were no overt abnormalities noted on the CT of the abdomen and pelvis. The final results of the patient's blood cultures (3 blood cultures) returned only positive for a gram-negative organism felt to be Klebsiella pneumoniae, there was no sign on the final culture of a gram-positive organism. On 11/01/2019, patient was seen and examined: On examination he appeared in good health and spirits. Vital signs as documented. Skin warm and dry and without overt rashes. Neck without JVD, neck was supple, trachea midline, thyroid was normal. Lungs clear bilaterally, normal air movement was noted. Heart exam notable for regular rhythm, normal sounds and absence of murmurs, rubs or gallops. Abdomen unremarkable and without evidence of organomegaly, masses, or abdominal aortic enlargement. Bowel sounds are present, abdomen is not distend ed. Extremities nonedematous, no cyanosis was noted, no clubbing was noted. Neuro: Cranial nerves II through XII are grossly intact, no focal motor deficits were noted, sensation to light touch and pinprick intact, motor exam 5/5 throughout. Psych: Patient is alert and oriented x3, he does not appear anxious or depressed, he does not appear agitated. Patient was felt stable for discharge on 11/01/2019, before the patient was discharged I talked with the patient's oncologist about his medical care during his hospitalization and kept him up-to-date on his hospital course. - Physical Exam Vitals/I&O's: Vital Signs Temp Pulse Resp BP Pulse Ox 98.9 F 89 16 137/70 H 97 11/01/19 09:06 11/01/19 09:07 11/01/19 09:06 11/01/19 09:06 11/01/19 09:06 Oxygen Flow Rate (L/min) 2 Oxygen Delivery Method Room Air Weight: 69.2 kg Body Mass Index (BMI) 21.2 Finger Stick Blood Glucose 363 Intake and Output for Last 24 Hours 10/30/19 10/31/19 11/01/19 23:59 23:59 23:59 Intake Total 3034.16 / 3354.16 3298.75 / 3298.75 2210 / 2210 Output Total 200 / 1250 1875 / 1875 1350 / 1350 Balance 2834.16 / 2104.16 1423.75 / 1423.75 860 / 860 Microbiology Past 72 Hours 10/30/19 17:05 Blood Culture (Wb) - Anticubital Right Blood Culture - 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 lactose upholsterer inside 10/29/19 20:00 Blood Culture (Wb) - Anticubital Left Blood Culture - Final GNR lactose upholsterer inside 10/29/19 20:30 Blood Culture (Wb) - Left Wrist Bacteria Detection (PCR) - Final 10/29/19 20:30 Blood Culture (Wb) - Left Wrist Blood Culture - Final Klebsiella pneumoniae sp pneum 10/29/19 21:15 Urine, Clean Catch Urine Culture - Final Klebsiella pneumoniae sp pneum 10/29/19 23:31 Mucosa - Nasopharyngeal Respiratory Panel (PCR) - Final Laboratory Results 10/31/19 14:38: Vancomycin Trough Cancelled 10/31/19 16:14: POC Glucose 206 H 10/31/19 21:38: POC Glucose 212 H 11/01/19 06:48: POC Glucose 129 H 11/01/19 08:45: WBC 3.3 L, RBC 3.49 L, Hgb 9.2 L, Hct 29.6 L, MCV 84.8, MCH 26.4 L, MCHC 31.1 L, RDW Std Deviation 46.8 H, RDW Coeff of Maia 15.4 H, Plt Count 108 L, MPV 9.3, Immature Gran % (Auto) 0.600, Neut % (Auto) 75.1 H, Lymph % (Auto) 10.8 L, [place] % (Auto) 12.3 H, Eos % (Auto) 0.9, Baso % (Auto) 0.3, Absolute Neuts (auto) 2.5, Absolute Lymphs (auto) 0.36 L, Nucleated RBC % 0.6, Differential Comment COMMENT, Diff Path Review Reviewed, Reactive Lymphocytes RARE Discharge Activity: Return to Normal Activity Weight Bearing Status: Full weight bearing Home Medications: Medications to take at Discharge Aspirin 81 mg PO DAILY 03/20/16 Duloxetine HCl 60 mg PO DAILY 03/20/16 insulin lispro 100 unit/mL subcutaneous pen See Rx Instructions SC .COMPLEX #60 ml 04/02/18 Insulin Detemir [Levemir FlexPen] 70 unit SUBCUT QHS 05/02/19 Ascorbic Acid [Vitamin C] 500 mg PO DAILY #30 tab.chew 05/05/19 metoprolol tartrate 25 mg tablet 12.5 mg PO BID #90 tab 09/26/19 omeprazole 20 mg capsule,delayed release 20 mg PO DAILY #90 cap 09/26/19 gabapentin 100 mg capsule 100 mg PO TID 10/07/19 Lisinopril [Prinivil] 2.5 mg PO DAILY 10/09/19 Rosuvastatin Calcium 20 mg PO QHS 10/29/19 Cefadroxil [Duracef] 1,000 mg PO BID #30 cap 11/01/19 Following Prescrptions Were Given to Patient: Cefadroxil [Duracef] 1,000 mg PO BID #30 cap [facility]: [facility] Primary Care Physician: Kendy Modi MD [Primary Care Provider] - Please follow up with your Primary Care Physician in: as scheduled Please Follow Up With: Dwayne Leonardo DO When: as directed Please Follow Up With: Kendy Modi MD Disposition: Home Minutes spent on discharge:: 32 Patient Condition:: Stable Medical Necessity - Tobacco Use Smoking Status: Never smoker Meaningful Use Info Meaningful Use Diagnoses (Choose all that apply): None applicable Inpatient E&M: 36736 Disch Hosp
--- NOTE | 2019-11-04 09:54 | CASEMGMT ---
RASHI ARVIZU Discharge Follow-up Phone Call: DERECK: 11 Strata: 3 Call Date: 11/04/19 Discharge Date: 11/01/19 Time of Call: 0950 Duration: 1 min Admitting Diagnosis: Severe Sepsis RN NOLBERTO attempted to complete follow-up phone call after recent hospitalization. No answer, voice message left with return contact information. Follow-up appts scheduled prior to discharge.
== END 2019-11-01 13:41 | disposition home or self-care (01) | DRG 872 ==
LOC: ED 21:47 → ICU 22:34 → PCU 10-30 10:32
PROVIDERS: Hospitalist; Admitting Provider Internal Medicine; Emergency Provider Emergency Medicine; PCP Family Medicine; Visit Provider Internal Medicine
DX: A41.59 Other Gram-negative sepsis (principal); C20 Malignant neoplasm of rectum; N17.9 Acute kidney failure, unspecified; N39.0 Urinary tract infection, site not specified; R65.20 Severe sepsis without septic shock; Z66 Do not resuscitate; E78.5 Hyperlipidemia, unspecified; I25.10 Atherosclerotic heart disease of native coronary artery without angina pectoris; E86.0 Dehydration; E11.40 Type 2 diabetes mellitus with diabetic neuropathy, unspecified; J98.4 Other disorders of lung; G47.31 Primary central sleep apnea; I10 Essential (primary) hypertension; F41.9 Anxiety disorder, unspecified; I25.5 Ischemic cardiomyopathy; Z79.82 Long term (current) use of aspirin; Z95.1 Presence of aortocoronary bypass graft; Z95.5 Presence of coronary angioplasty implant and graft; Z79.02 Long term (current) use of 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/antiplatelets; Z92.3 Personal history of irradiation; Z79.899 Other long term (current) drug therapy; Z86.73 Personal history of transient ischemic attack (TIA), and cerebral infarction without residual deficits; Z79.4 Long term (current) use of insulin
CPT/HCPCS: 36415; 71046; 74177; 76770; 80048; 80053; 81001; 82962; 83605; 83735; 84443; 85025; 87040; 87077; 87086; 87088; 87149; 87186; 87633; 87641; 93005; 97162; 97166; 97802; 99251; 99285; J7030; J7040; Q9967; A4216; G0463; J7799

== ENCOUNTER 2020-01-09 12:19 | Observation (INO) | payer BC, SELFPAY ==
[2019-10-29 22:45] VITALS: BMI 21.2
[2020-01-09] VITALS (16 sets, daily range): BP systolic 120–173; BP diastolic 68–92; PULSE 76–115; RESP 14–18; TEMP 36.6–37.6; O2SAT 94–98; BMI 22.4; BMI 21.7
--- NOTE | 2020-01-09 12:55 | RAD_ITS ---
STUDY: X-RAY CHEST REASON FOR EXAM: Male, 64 years old. Fever -- pt has colorectal cancer TECHNIQUE: Single AP portable view of the chest. COMPARISON: Comparison is made with prior examination dated October 29, 2019. FINDINGS: A right-sided portacatheter is seen with the tip at the junction of the superior vena cava and right atrium. Stable mild increased linear markings at the left lung base suggestive of linear scarring. There is no demonstrated pleural abnormality. Sternal cerclage wires and vascular clips are present from a prior sternotomy and coronary artery bypass graft procedure (CABG). Normal mediastinum and ramses. Normal visualized pulmonary arteries. There is atherosclerotic calcification of the aortic arch with tortuosity. Normal visualized thoracic spine. Normal visualized ribs, clavicles, and shoulders. There is no demonstrated abnormality of the visualized soft tissue structures of the upper abdomen. RAD/Chest 1 View (Portable) IMPRESSION: Stable examination suggestive of linear scarring at the left lung base. No focal consolidation is seen. Electronically Signed: Navdeep Gonzales, at 13:55 EDT , Service support ,
--- NOTE | 2020-01-09 12:58 | ED.DCSUM_ITS ---
- ER Visit Summary Date of Service: 01/09/20 Chief Complaint: Fever History of Present Illness: The patient is a 64 M who presents with a fever that began last night. Patient states his temperature was up to 100.7. Patient admits to a headache. Patient denies any chills. Patient admits to some lower extremity weakness. Patient states his fevers have been waxing and waning. Patient admits to some rhinorrhea. Patient denies any chest pain, shortness of breath, or cough. Patient denies any nausea or vomiting. Patient does admit to some mild dysuria. Patient also admits to some neck pain. Physical Examination: Vital signs are stable except for tachycardia of 115. Patient is afebrile here with an oral temperature of 97.9. Patient is in no acute distress. Oral mucosa is pink and moist. Oropharynx is clear. Neck is supple. Trachea is midline. There is no JVD. Heart was regular and tachycardic. Lungs are clear but diminished bilaterally. There is adequate respiratory effort. Abdomen is soft. Bowel sounds are normal. There is no tenderness. Cranial nerves II through XII are intact. There are no focal motor or sensory deficits. Test Results: CBC shows a slight anemia with a hemoglobin of 11.1 and hematocrit 34.5. Comprehensive metabolic profile showed a slightly elevated glucose of 370. Urinalysis shows leukocyte esterase of 100 with positive nitrates and 10- 25 white blood cells and 1+ bacteria. Serum lactate was elevated at 2.4. Portable chest x-ray was obtained. There are chronic changes but no acute infiltrate. This was interpreted by the radiologist and reviewed by myself. Emergency Department Course and Treatment: Patient was given IV fluids here. Patient was started on Rocephin here. Case was discussed with Dr. Leonardo. He stated that the patient became uroseptic fairly quickly the last time he had a urinary tract infection. Case was discussed with the hospitalist. She will admit the patient to her service. Patient understood and was agreeable with the plan. All questions were answered. Disposition: Admit to hospital Impression: 1. Urinary tract infection 2. Severe sepsis This note was generated with Vaultizeation software. It may contain incorrect words, spelling, and punctuation that were not noted in review of the chart prior to signing ED Disposition - Plan for ED Patient: Disposition: Acute Care Hospital [facility] Diagnosis: Urinary tract infection, Severe sepsis Referrals: Kendy Modi MD [Primary Care Provider] -
[2020-01-09] MEDS: 0.9% Normal Saline 1,000 ML 1000 ML IV (14:17)
[2020-01-09 14:21] LABS: Absolute Lymphocyte Count 0.53 X10^3/uL (0.83-4.51); Absolute Neutrophil Count 6.9 X10^3/uL (2.0-7.7); Basophil# 0.02 X10^3/uL; Basophil% 0.2 % (0-1); Hematocrit 34.5 % (40-54); Lymphocyte # 0.53 X10^3/ul (4.0); Lymphocyte % 5.8 % (19-41); Mean Corp Hgb Conc 31.9 g/dL (32-36); Mean Corpuscular Hgb 27.7 pg (27.0-32.0); Mean Corpuscular Volume 86.9 fL (80-94); Monocyte# 1.66 X10^3/uL; Monocyte% 18.2 % (0-10); NRBC Flagged by Analyzer 0.4 % (0-5); Neutrophil % 75.6 % (47-70); POSITIVE DIFFERENTIAL YES; POSITIVE MORPHOLOGY YES; Platelet Count 190 K/mm3 (150-450); RBC Distribution Width CV 21.7 % (11.6-14.6); RBC Distribution Width SD 66.3 fl (35.1-43.9); Red Blood Count 3.97 M/mm3 (4.6-6.2); White Blood Count 9.1 K/mm3 (4.4-11.0)
[2020-01-09 14:25] LABS: Differential Indicated SCAN CRITERIA MET
[2020-01-09 14:37] LABS: ALB/GLOB Ratio 0.8 RATIO (0.9-2.4); AST(SGOT) 18 U/L (15-37); Alanine Aminotransfer ALT/SGPT 28 U/L (16-61); Albumin, Serum 3.1 g/dL (3.2-5.0); Alkaline Phosphatase 93 U/L (45-117); Anion Gap 9 (5-15); BUN 22 mg/dL (7-18); BUN/Creat Ratio 18.3 RATIO (10-20); Calcium,Total 8.6 mg/dL (8.5-10.1); Chloride 99 mmol/L (98-107); EST Glomerular Filtration Rate 65 mL/min (>60); Est Glom Filt Rate - Afr Amer 79 mL/min (>60); Estimated Creatinine Clearance 58.56 ml/min; Globulin 3.9 g/dL (2.2-4.2); Glucose 370 mg/dL (74-106); Potassium 4.4 mmol/L (3.5-5.1); Sodium Level 135 mmol/L (136-145)
[2020-01-09 14:40] LABS: Mucous, Urine 0 SEEN /hpf (<or=2+)
[2020-01-09 14:44] LABS: Color, Urine Yellow (Yellow); Glucose, Dipstick 1000 mg/dl (Normal); Ketone-Dipstick 15 mg/dl (Negative); Leukocyte Esterase-Dipstick 100 /ul (Negative); Nitrite-Dipstick Positive (Negative); Occult Blood-Urine 10 /ul (Negative); Protein-Dipstick 15 mg/dl (Negative); Urine Bilirubin Dipstick Negative (Negative); Urine Clarity Sl. Cloudy (Clear); Urine Urobilinogen Normal (Normal)
[2020-01-09 14:45] LABS: Lactic Acid 2.4 mmol/L (0.4-1.9)
[2020-01-09 14:59] LABS: Red Blood Cells-Urine 0-5 SEEN /hpf (0-5); White Blood Cells 10-25 SEEN /hpf (0-5)
[2020-01-09 15:00] LABS: Bacteria 1+ /hpf (None Seen); Squamous Epithelial Cells - UA 0-5 SEEN /hpf (0-5)
[2020-01-09 15:12] LABS: Anisocytosis 1+
--- NOTE | 2020-01-09 17:25 | PCM.HP.STD ---
History of Present Illness Date of Admission: 01/09/20 Chief Complaint: Fever The patient is a 64 year old M who presented to [facility] ED on 01/09/2020 with a fever that began last pm. He states that his temp was up to 100.7. He c/o WALLACE, chill, malaise, and B LE weakness. His fevers have been waxing and waning. He was diagnosed with Rectal cancer at the end of September 2019 and has been receiving chemotherapy. he has had 4 rounds to this point. His oncologist is Dr. Leonardo. He was recently admitted with Sepsis 2/2 Bacteremia and UTI with K. pneumoniae at the end of October 2019 (). At that time his antibiotic course was completed with Duracef. Per ED d/w Dr. Leonardo, he became septic quite quickly. In the ED he was tachycardic but normotensive and VS were otherwise stable. Tmax was 98.7. He had a normal white count, his sCr was up slightly from baseline, his lactate was 2.4, and his UA was c/w UTI with elevated leuk esterase and a + nitrite. Pt did not however report dysuria. He states that he never had issues prior to his infection in October with regards to UTI. A CT was done at that time and showed some bladder wall thickening and prostate prominence. Past Medical History Past Medical History (Chronic Problems): Chronic Problems (Last Reviewed 01/09/20 @ 17:[address] 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) I25.798 Peripheral vascular occlusive disease (Chronic) I73.9 CVA (cerebral vascular accident) (Chronic) I63.9 cerebellar stroke Right endarterectomy HTN (hypertension) (Chronic) I10 Dyslipidemia (Chronic) E78.5 ALEJANDRO (obstructive sleep apnea) (Chronic) G47.33 Diabetic neuropathy E11.40 invasive rectal adenocarcinoma Allergies No Known Allergies Allergy (Verified 01/09/20 12:19) Home Medications: Ambulatory Orders Medication Instructions Recorded Aspirin 81 mg PO DAILY 03/20/16 Duloxetine HCl 60 mg PO DAILY 03/20/16 insulin lispro 100 unit/mL See Rx Instructions SC .COMPLEX 04/02/18 subcutaneous pen #60 ml Insulin Detemir [Levemir FlexPen] 70 unit SUBCUT QHS 05/02/19 metoprolol tartrate 25 mg tablet 12.5 mg PO BID #90 tab 09/26/19 gabapentin 100 mg capsule 100 mg PO TID 10/07/19 Rosuvastatin Calcium 20 mg PO QHS 10/29/19 Ascorbic Acid [Vitamin C] 500 mg PO DAILY 01/09/20 Lisinopril [Zestril] 2.5 mg PO DAILY 01/09/20 Omeprazole 40 mg PO DAILY 01/09/20 Surgical History: Surgical History (Last Reviewed 01/09/20 @ 17:[address] Ling Ford DO) History of coronary artery stent placement (Chronic) Onset Date: 01/02/15 Z95.5 [id number]-Ramus 01/02/15 H/O coronary artery bypass surgery (Chronic) Onset Date: 05/30/08 Z95.1 CABG x 5 05/30/2008 ZUNIGA-LAD and D1, Free KIMBERLYN-PDA, SVG-Ramus, SVG-OM1 Excision Max.Zygoma Face Tumor History of herniorrhaphy Z98.890, Z87.19 History of right-sided carotid endarterectomy Z98.890 History of tonsillectomy Z98.890, Z90.89 PTCA Left Anterior Tibial and Paroneal Artery Surgical History: coronary bypass surgery, - - R CEA Psychiatric History: No pertinent psych hx Smoking Status: Never smoker Tobacco Use: Non-smoker Alcohol: Rare Drugs: None - *Family History Paternal Family History: Family History (Last Reviewed 01/09/20 @ 17:[address] Ling Ford DO) Father CAD (coronary artery disease) Hypertension Cancer Diabetes Heart disease High cholesterol Mother CVA (cerebral vascular accident) Diabetes Breast cancer Brother Diabetes History Items: Cancer, - Maternal Family History: Family History (Last Reviewed 01/09/20 @ 17:[address] Ling Ford DO) Father CAD (coronary artery disease) Hypertension Cancer Diabetes Heart disease High cholesterol Mother CVA (cerebral vascular accident) Diabetes Breast cancer Brother Diabetes History Items: Cancer, - Review of Systems Constitutional: Reports: Anorexia, Chills, Fever, Malaise, Weakness, Fatigue. Denies: Night Sweats, Weight Change Eyes: Denies: Blurred vision, Cataracts, Conjunctivae Inflammation, Double vision, Drainage, Eyelid Inflammation, Pain, Redness, Vision Change HEENT: Denies: Difficulty Hearing, Difficulty Swallowing, Dysphasia, Ear Pain, Eye Pain, Hard of Hearing, Head Aches, Hearing Changes, Nasal bleeding, Nasal Congestion, Post Nasal Drip, Sinus Congestion, Sinus Drainage, Sore Throat, Visual Changes Cardiovascular: Denies: Chest Pain, Claudication, Chest Pressure, Chest Tightness, Edema, Heaviness, Light Headedness, Orthopnea, Palpitations, Paroxysmal Noc. Dyspnea, Syncope Respiratory: Denies: Cough, Hemoptysis, Pleuritic Pain, Shortness of Breath, Shortness of breath at rest, Shortness of breath upon exertion, Sputum production, Wheezing Gastrointestinal: Denies: Abdominal Pain, Constipation, Diarrhea, Dyspepsia, Hematemesis, Hematochezia, Nausea, Melena, Vomiting Genitourinary: Denies: Dysuria, Frequency, Hematuria, Hesitancy, Incontinence, Nocturia, Retention, Urgency Musculoskeletal: Denies: Back Pain, Joint Pain, Joint stiffness, Joint swelling, Joint Tenderness, Muscle pain, Neck Pain Skin: Denies: Dryness, Jaundice, Lesions, Pruritis, Rash, Skin Changes Neurological: Reports: Focal weakness - chronic L sided from previous stroke, Headaches. Denies: Balance problems, Blurred vision, Double vision, Change in Speech, Slurred speech, Confusion, Difficulty swallowing, Incoordination, Numbness, Tingling, Tremor, Seizures Psychiatric: Reports: Anxiety, Depression. Denies: Homicidal Ideations, Suicidal Ideations Endocrine: Denies: Change in Body Habitus, Heat/ Cold Intolerance, Polydipsia, Polyuria, Hx of Irradiation, Hx of Thyroiditis Hematologic/ Lymphatic: Denies: Adenopathy, Anemia, Easy Bruising, Easy Bleeding, Petechiae, Purpura, Hx of blood clot, Hx of blood transfusion VTE Information - Inpt Only VTE Present on Admission: No VTE Pharm Prophylaxis ordered?: Yes Patient Problems: Active and Suspected Problems (Last Reviewed 01/09/20 @ 17:[address] Ling Ford, DO) Urinary tract infection (Acute) Severe sepsis (Acute) - Physical Exam Vitals/I&O's: Vital Signs Temp Pulse Resp BP Pulse Ox 98.6 F 100 18 173/92 H 96 01/09/20 17:00 01/09/20 17:00 01/09/20 17:00 01/09/20 17:00 01/09/20 17:00 Oxygen Delivery Method Room Air Weight: 64.864 kg Body Mass Index (BMI) 22.4 Finger Stick Blood Glucose 363 Intake and Output for Last 24 Hours 01/07/20 01/08/20 01/09/20 23:59 23:59 23:59 Intake Total 1000 / 1000 Balance 1000 / 1000 General: Alert, Oriented x3, Cooperative, No apparent distress, Well developed, Well nourished HEENT: Atraumatic, PERRLA, EOMI, Normocephalic, EAC Clear Oral: Moist Mucosa, No Gingival or Mucosal Lesions/ Ulcerations, - - Mallampati 2, no thrush, good dentition Neck: Supple, No JVD, Negative Carotid Bruits, Negative Hepatojugular Reflux, No Nodes, No Nuchal Rigidity, Trachea Midline, Thyroid Normal Size and Texture Lungs: Clear to auscultation, Normal air movement, No rhonchi, No wheeze, No rales Cardiovascular: Regular rate, Regular Rhythm, Normal S1, Normal S2, No murmurs, No Ectopic Activity, No rub noted, No Gallop, Tachycardic - mild Abdomen: Bowel Sounds Present, Soft, Non Tender, Non-Distended, No Hepato-splenomegaly, No hernias noted Extremities: No clubbing, No cyanosis, No edema, Capillary Refill Less than 3 Seconds, No Calf Tenderness Skin: No rashes, No breakdown, - - medport R chest-accessed Musculoskeletal: No Tenderness to Palpation of Joints or Extremities, Muscle Wasting - L thenar eminence Lymphatic: No Cervical, Supraclavicular, or Inguinal Adenopathy Neurological: Cranial nerves II-XII grossly intact, Deep Tendon Reflexes 2+/4 and Symmetrical, Sensory exam intact to light touch and pain, Coordination normal - mild L sided weakness Laboratory Results 01/09/20 14:05: WBC 9.1, RBC 3.97 L, Hgb 11.0 L, Hct 34.5 L, MCV 86.9, MCH 27.7, MCHC 31.9 L, RDW Std Deviation 66.3 H, RDW Coeff of Maia 21.7 H, Plt Count 190, MPV 9.0, Immature Gran % (Auto) 0.200, Neut % (Auto) 75.6 H, Lymph % (Auto) 5.8 L, [place] % (Auto) 18.2 H, Eos % (Auto) 0.0, Baso % (Auto) 0.2, Absolute Neuts (auto) 6.9, Absolute Lymphs (auto) 0.53 L, Nucleated RBC % 0.4, Differential Comment , Anisocytosis 1+ 01/09/20 14:05: Sodium 135 L, Potassium 4.4, Chloride 99, Carbon Dioxide 27.0, Anion Gap 9, BUN 22 H, Creatinine 1.20, Estim Creat Clear Calc 58.56, Est GFR (MDRD) Af Amer 79, Est GFR (MDRD) Non-Af 65, BUN/Creatinine Ratio 18.3, Glucose 370 H, Calcium 8.6, Total Bilirubin 0.60, AST 18, ALT 28, Alkaline Phosphatase 93, Total Protein 7.0, Albumin 3.1 L, Globulin 3.9, Albumin/Globulin Ratio 0.8 L 01/09/20 14:05: Lactic Acid 2.4 H* 01/09/20 14:35: Urine Color Yellow, Urine Clarity Sl. Cloudy, Urine pH 6.0, Ur Specific [place] 1.010, Urine Protein 15 H, Urine Glucose (UA) 1000 H, Urine Ketones 15 H, Urine Occult Blood 10 H, Urine Nitrite Positive H, Urine Bilirubin Negative, Urine Urobilinogen Normal, Ur Leukocyte Esterase 100 H, Urine RBC 0-5 SEEN, Urine WBC 10-25 SEEN, Ur Squamous Epith Cells 0-5 SEEN, Urine Bacteria 1+, Urine Mucus 0 SEEN Current Medications Sodium Chloride () 500 mls @ 15 mls/hr IV PRN PRN PRN Reason: Blood Transfusion Sodium Chloride () 250 mls @ 15 mls/hr IV .[id number] PRN PRN Reason: Saline Flush Sodium Chloride () 10 - 40 ml IV UD PRN PRN Reason: Multilumen/Gill Flush Sodium Chloride (0.9% Nacl (Sterile) Posiflush) 10 - 40 ml IV UD PRN PRN Reason: Port access or dressing change Assessment/Plan All Active Problems (Last Reviewed 01/09/20 @ 17:[address] Ling Ford, DO) Urinary tract infection (Acute) Severe sepsis (Acute) Severe Sepsis 2/2 suspected UTI in an Immunosuppressed pt -UA c/w UTI -urine and blood cx pending -will check MRSA PCR --> start Vanc if + -start Zosyn (last UTI 10/2019 was K. pneumoniae--> pt d/c with oral Duricef) -APAP prn -IVF at 75 cc/hr -repeat lactate at 4 hr leeanna Lactic Acidosis -repeat at 4 hr leeanna and if still elevated repeat per sepsis protocol -IVF MADELEINE on CKD stage 2 -mild -IVF (NS at 75cc/hr) Mild hyponatremia -trend -repeat in am DM-2 -continue Lantus 70 u at hs -continue log 17 u with meals -SSI log -BGT AC and HS -Carb control/cardiac diet Rectal Ca -treatment on hold -Dr. Leonardo aware of admission -update onc prior to d/c CAD/Stroke/HTN/HPL -continue Metoprolol 25 mg BID/ASA 81mg/Crestor 20 mg at hs -carb control cardiac diet Diabetic Neuropathy -continue gabapentin ALEJANDRO -CPAP if pt compliant Depression -continue Cymbalta GERD -continue PPI DVT prophylaxis Lovenox 40 daily Inpatient E&M: 66423 Init Hosp L3
[2020-01-09] MEDS: 0.9% Normal Saline 1,000 ML 75 ML IV (18:12)
[2020-01-09 18:16] LABS: Reflex Lactate? Y
[2020-01-09 18:20] LABS: Bedside Glucose 303 mg/dL (70-110)
[2020-01-09] MEDS: Insulin Lispro 100 UNIT/ML INSULN.PEN 17 UNIT SC (18:24)
[2020-01-09] MEDS: Insulin Lispro 100 UNIT/ML INSULN.PEN SC ×2 (18:25→21:51)
--- NOTE | 2020-01-09 20:15 | CPS ---
Patient stated that he prefers oxygen over his own CPAP. Patient will be placed on 2l/m at night.
[2020-01-09 20:25] LABS: Lactic Acid 3.5 mmol/L (0.4-1.9)
[2020-01-09 20:26] LABS: M R Staph aureus DNA By PCR Negative (Negative); Probe Check PASS; Specimen Processing Control PASS
[2020-01-09] MEDS: Metoprolol Tartrate 25 MG Tablet 12.5 MG PO (21:52)
[2020-01-09] MEDS: Atorvastatin Calcium 40 MG Tablet PO (21:54)
[2020-01-09] MEDS: 0.9% Normal Saline 1,000 ML 999 ML IV (22:35)
[2020-01-09 23:25] LABS: Bedside Glucose 281 mg/dL (70-110)
[2020-01-10] VITALS (12 sets, daily range): BP systolic 126–167; BP diastolic 70–97; PULSE 87–110; RESP 14–16; TEMP 36.7–37.2; O2SAT 94–96
[2020-01-10] MEDS: Acetaminophen 325 MG Tablet 650 MG PO (02:41)
[2020-01-10 04:04] LABS: Absolute Lymphocyte Count 0.52 X10^3/uL (0.83-4.51); Absolute Neutrophil Count 6.8 X10^3/uL (2.0-7.7); Basophil# 0.01 X10^3/uL; Basophil% 0.1 % (0-1); Eosinophil# 0.01 X10^3/uL; Eosinophils% 0.1 % (0-5); Hematocrit 31.2 % (40-54); Hemoglobin 9.6 g/dL (13.0-16.5); Lymphocyte # 0.52 X10^3/ul (4.0); Lymphocyte % 6.1 % (19-41); Mean Corp Hgb Conc 30.8 g/dL (32-36); Mean Corpuscular Hgb 27.4 pg (27.0-32.0); Mean Corpuscular Volume 89.1 fL (80-94); Monocyte# 1.23 X10^3/uL; Monocyte% 14.4 % (0-10); NRBC Flagged by Analyzer 0.4 % (0-5); Neutrophil # 6.77 X10^3/uL (2.7-7.7); Neutrophil % 79.1 % (47-70); POSITIVE DIFFERENTIAL YES; POSITIVE MORPHOLOGY YES; Platelet Count 163 K/mm3 (150-450); RBC Distribution Width CV 21.2 % (11.6-14.6); RBC Distribution Width SD 66.9 fl (35.1-43.9); White Blood Count 8.6 K/mm3 (4.4-11.0)
[2020-01-10 04:23] LABS: Differential Indicated SCAN CRITERIA MET
[2020-01-10 04:26] LABS: Lactic Acid 1.7 mmol/L (0.4-1.9)
[2020-01-10 04:56] LABS: Anion Gap 8 (5-15); BUN 15 mg/dL (7-18); BUN/Creat Ratio 15.2 RATIO (10-20); Calcium,Total 7.8 mg/dL (8.5-10.1); Chloride 104 mmol/L (98-107); Creatinine, Serum 0.99 mg/dL (0.70-1.30); EST Glomerular Filtration Rate 82 mL/min (>60); Est Glom Filt Rate - Afr Amer 99 mL/min (>60); Estimated Creatinine Clearance 68.89 ml/min; Glucose 169 mg/dL (74-106); Magnesium 1.9 mg/dL (1.6-2.6); Potassium 3.5 mmol/L (3.5-5.1); Sodium Level 138 mmol/L (136-145)
[2020-01-10 05:11] LABS: Anisocytosis 3+; Differential Comment SCANNED
--- NOTE | 2020-01-10 07:10 | CPS ---
Pt has lost weight and his home CPAP mask no longer fits. He declined using hospital machine, wants to wear a couple liters of Oxygen like he did last night. R.T. encouraged him to call [facility] when his is discharged so he can be fitted for a new mask.
[2020-01-10 07:45] LABS: Bedside Glucose 97 mg/dL (70-110)
[2020-01-10] MEDS: Gabapentin 100 MG Capsule PO ×3 (08:17→16:17)
[2020-01-10] MEDS: Aspirin 81 MG TAB.CHEW PO (08:17)
[2020-01-10] MEDS: Insulin Lispro 100 UNIT/ML INSULN.PEN 17 UNIT SC ×3 (08:19→16:17)
[2020-01-10] MEDS: Enoxaparin 40 MG/0.4 ML Syringe SC (08:51)
[2020-01-10] MEDS: Pantoprazole Sodium 40 MG Tablet PO (08:52)
[2020-01-10] MEDS: Metoprolol Tartrate 25 MG Tablet 12.5 MG PO ×2 (08:52→21:06)
[2020-01-10] MEDS: Lisinopril 2.5 MG Tablet PO (08:52)
[2020-01-10] MEDS: DULoxetine Hcl 60 MG Capsule PO (08:53)
[2020-01-10] MEDS: Ascorbic Acid 500 MG Tablet PO (08:53)
--- NOTE | 2020-01-10 08:58 | CASEMGMT ---
On admission patient requested more information on advance directives. SW met with patient and he indicated he would like the documents to take home. He said his and son will help him with documents. SW told him if he changes his mind or he has questions to ask for Social Work. Linette KAPOOR MSW
--- NOTE | 2020-01-10 09:06 | OT ---
VERBALLY EDU PT ON ENERGY CONSERVATION PRINCIPALS TO REDUCE FALL RISK AT HOME AND INC INDEP. PROVIDED RECS FOR DME TO INCREASE HOME SAFETY INCLUDING EXT TUB BENCH AND RTS/TSR/GRAB BAR BY TOILET. PT VERBALIZES UNDERSTANDING.
--- NOTE | 2020-01-10 10:36 | PN_ITS ---
<Meri Oliveira - Last Filed: 01/10/20 10:53> Patient Problems: Active and Suspected Problems (Last Reviewed 01/09/20 @ 17:[address] Ling Ford DO) Urinary tract infection (Acute) Severe sepsis (Acute) Subjective: Patient seen and examined. States he feels improved. Reports chills this morning when he became soaked in sweat. Denies fever. Denies nausea, vomiting. Patient states he is hoping to be discharged prior to family gathering tomorrow afternoon. Discussed with patient given immunocompromised status, patient will need strict precautions including mask and handwashing. - Physical Exam Vitals/I&O's: Vital Signs Temp Pulse Resp BP Pulse Ox 98.1 F 110 H 16 167/95 H 94 01/10/20 08:51 01/10/20 08:52 01/10/20 08:51 01/10/20 08:52 01/10/20 08:51 Oxygen Delivery Method Room Air Weight: 141 lb 1.533 oz Body Mass Index (BMI) 21.7 Finger Stick Blood Glucose 363 Intake and Output for Last 24 Hours 01/08/20 01/09/20 01/10/20 23:59 23:59 23:59 Intake Total 2912.5 / 3272.5 730 / 730 Output Total 850 / 850 Balance 2912.5 / 3272.5 -120 / -120 General: Alert, Oriented x3, Cooperative HEENT: Atraumatic, PERRLA, EOMI, Normocephalic Neck: Supple, No JVD, Negative Carotid Bruits Lungs: Clear to auscultation, Normal air movement Cardiovascular: Regular rate, No murmurs Abdomen: Bowel Sounds Present, Soft, Non Tender Extremities: No edema, Capillary Refill Less than 3 Seconds Skin: No rashes, No breakdown, - - Right chest port Musculoskeletal: No Tenderness to Palpation of Joints or Extremities Neurological: Cranial nerves II-XII grossly intact, Neuro grossly intact Psych/Mental Status: Normal Affect, Appropriate Laboratory Results 01/09/20 14:05: WBC 9.1, RBC 3.97 L, Hgb 11.0 L, Hct 34.5 L, MCV 86.9, MCH 27.7, MCHC 31.9 L, RDW Std Deviation 66.3 H, RDW Coeff of Maia 21.7 H, Plt Count 190, MPV 9.0, Immature Gran % (Auto) 0.200, Neut % (Auto) 75.6 H, Lymph % (Auto) 5.8 L, Broome % (Auto) 18.2 H, Eos % (Auto) 0.0, Baso % (Auto) 0.2, Absolute Neuts (auto) 6.9, Absolute Lymphs (auto) 0.53 L, Nucleated RBC % 0.4, Differential Comment , Anisocytosis 1+ 01/09/20 14:05: Sodium 135 L, Potassium 4.4, Chloride 99, Carbon Dioxide 27.0, Anion Gap 9, BUN 22 H, Creatinine 1.20, Estim Creat Clear Calc 58.56, Est GFR (MDRD) Af Amer 79, Est GFR (MDRD) Non-Af 65, BUN/Creatinine Ratio 18.3, Glucose 370 H, Calcium 8.6, Total Bilirubin 0.60, AST 18, ALT 28, Alkaline Phosphatase 93, Total Protein 7.0, Albumin 3.1 L, Globulin 3.9, Albumin/Globulin Ratio 0.8 L 01/09/20 14:05: Lactic Acid 2.4 H* 01/09/20 14:35: Urine Color Yellow, Urine Clarity Sl. Cloudy, Urine pH 6.0, Ur Specific Reasnor 1.010, Urine Protein 15 H, Urine Glucose (UA) 1000 H, Urine Ketones 15 H, Urine Occult Blood 10 H, Urine Nitrite Positive H, Urine Bilirubin Negative, Urine Urobilinogen Normal, Ur Leukocyte Esterase 100 H, Urine RBC 0-5 SEEN, Urine WBC 10-25 SEEN, Ur Squamous Epith Cells 0-5 SEEN, Urine Bacteria 1+, Urine Mucus 0 SEEN 01/09/20 18:05: MRSA (PCR) Negative 01/09/20 18:08: POC Glucose 303 H 01/09/20 19:43: Lactic Acid 3.5 H* 01/09/20 21:49: POC Glucose 281 H 01/10/20 03:50: WBC 8.6, RBC 3.50 L, Hgb 9.6 L, Hct 31.2 L, MCV 89.1, MCH 27.4, MCHC 30.8 L, RDW Std Deviation 66.9 H, RDW Coeff of Maia 21.2 H, Plt Count 163, MPV 9.0, Immature Gran % (Auto) 0.200, Neut % (Auto) 79.1 H, Lymph % (Auto) 6.1 L, Broome % (Auto) 14.4 H, Eos % (Auto) 0.1, Baso % (Auto) 0.1, Absolute Neuts (auto) 6.8, Absolute Lymphs (auto) 0.52 L, Nucleated RBC % 0.4, Differential Comment SCANNED, Anisocytosis 3+ 01/10/20 03:50: Sodium 138, Potassium 3.5, Chloride 104, Carbon Dioxide 26.0, Anion Gap 8, BUN 15, Creatinine 0.99, Estim Creat Clear Calc 68.89, Est GFR (MDRD) Af Amer 99, Est GFR (MDRD) Non-Af 82, BUN/Creatinine Ratio 15.2, Glucose 169 H, Calcium 7.8 L, Magnesium 1.9 01/10/20 03:50: Lactic Acid 1.7 01/10/20 07:26: POC Glucose 97 Current Medications Acetaminophen (Tylenol) 650 mg PO Q6H PRN PRN PRN Reason: Pain Score 1-10/Temp > 100.7 F Last Admin: 01/10/20 02:41 Dose: 650 mg Documented by: Ascorbic Acid (Vitamin C) 500 mg PO DAILY [facility] Last Admin: 01/10/20 08:53 Dose: 500 mg Documented by: Aspirin (Aspirin, Baby) 81 mg PO DAILYCM [facility] Last Admin: 01/10/20 08:17 Dose: 81 mg Documented by: Atorvastatin Calcium (Lipitor) 40 mg PO QHS [facility] Last Admin: 01/09/20 21:54 Dose: 40 mg Documented by: Dextrose (D50w Syringe) 0 gm IV X1 PRN; Protocol PRN Reason: Hypoglycemia Duloxetine HCl (Cymbalta) 60 mg PO DAILY [facility] Last Admin: 01/10/20 08:53 Dose: 60 mg Documented by: Enoxaparin Sodium (Lovenox) 40 mg SC DAILY [facility] Last Admin: 01/10/20 08:51 Dose: 40 mg Documented by: Gabapentin (Neurontin) 100 mg PO TIDCM [facility] Last Admin: 01/10/20 08:17 Dose: 100 mg Documented by: Glucagon () 1 mg IM .X1 PRN PRN Reason: Hypoglycemia Sodium Chloride () 1,000 mls @ 75 mls/hr IV .[id number] [facility] Last Infusion: 01/10/20 05:27 Dose: 0 mls/hr Documented by: Piperacillin Sod/Tazobactam (Sod 3.375 gm/ Sodium Chloride) 50 mls @ 12.5 mls/hr IV Q8 [facility] Stop: 01/16/20 14:01 Last Infusion: 01/10/20 09:41 Dose: Infused Documented by: Insulin Glargine (Lantus ([facility])) 70 units SC QHS [facility] Last Admin: 01/09/20 21:51 Dose: 70 u Documented by: Insulin Human Lispro (Humalog Kwikpen ([facility])) 17 unit SC TIDAC [facility] Last Admin: 01/10/20 08:19 Dose: 17 units Documented by: Insulin Human Lispro (Humalog Kwikpen ([facility])) 0 unit SC ACHS [facility]; Protocol Last Admin: 01/10/20 07:29 Dose: Not Given Documented by: Lisinopril (Zestril) 2.5 mg PO DAILY [facility] Last Admin: 01/10/20 08:52 Dose: 2.5 mg Documented by: Melatonin (Melatonin) 3 mg PO QHS PRN PRN PRN Reason: INSOMNIA Metoprolol Tartrate (Lopressor (Beta Blanca)) 12.5 mg PO BID [facility] Last Admin: 01/10/20 08:52 Dose: 12.5 mg Documented by: Ondansetron HCl (Zofran) 4 mg IV Q8H PRN PRN PRN Reason: NAUSEA/VOMITING Pantoprazole Sodium (Protonix) 40 mg PO DAILY [facility] Last Admin: 01/10/20 08:52 Dose: 40 mg Documented by: Medical Necessity - Tobacco Use Smoking Status: Never smoker Tobacco Use: Non-smoker Assessment/Plan All Active Problems (Last Reviewed 01/09/20 @ 17:[address] Ling Ford DO) Urinary tract infection (Acute) Severe sepsis (Acute) 1. Severe sepsis secondary to UTI-urine and blood cultures pending. Continue IV Rocephin. Prior urine cultures grew Klebsiella. 2. Rectal CA adenocarcinoma-undergoing chemotherapy. Follows with Dr. Leonardo. 3. Mild dehydration, chronic kidney disease stage II-no acute kidney injury. Mild dehydration improved. 4. Type 2 diabetes mellitus with diabetic [id number] with sliding scale insulin. Continue home Levemir regimen. Continue gabapentin. 5. CAD-continue aspirin, statin, metoprolol, lisinopril. 6. History of CVA-continue aspirin, statin. 7. Hypertension-stable, continue metoprolol, lisinopril. PRN hydralazine for systolic blood pressure greater than 160. 8. Hyperlipidemia- continue statin. 9. ALEJANDRO/central sleep apnea- continue PAP regimen. 10. Depression- continue cymbalta regimen. 11. GERD- continue PPI. 12. Chronic normocytic anemia-stable, trend CBC. DVT prophylaxis-Lovenox subcu This patient was seen by SHUBHAM Mai under the supervision of Dr. Robertson. <Tay Robertson - Last Filed: 01/10/20 12:07> - Physical Exam Vitals/I&O's: Vital Signs Temp Pulse Resp BP Pulse Ox 98.1 F 110 H 16 167/95 H 94 01/10/20 08:51 01/10/20 08:52 01/10/20 08:51 01/10/20 08:52 01/10/20 08:51 Oxygen Delivery Method Room Air Weight: 64 kg Body Mass Index (BMI) 21.7 Finger Stick Blood Glucose 363 Intake and Output for Last 24 Hours 01/08/20 01/09/20 01/10/20 23:59 23:59 23:59 Intake Total 2912.5 / 3272.5 1130 / 1130 Output Total 850 / 850 Balance 2912.5 / 3272.5 280 / 280 Laboratory Results 01/09/20 14:05: WBC 9.1, RBC 3.97 L, Hgb 11.0 L, Hct 34.5 L, MCV 86.9, MCH 27.7, MCHC 31.9 L, RDW Std Deviation 66.3 H, RDW Coeff of Maia 21.7 H, Plt Count 190, MPV 9.0, Immature Gran % (Auto) 0.200, Neut % (Auto) 75.6 H, Lymph % (Auto) 5.8 L, Broome % (Auto) 18.2 H, Eos % (Auto) 0.0, Baso % (Auto) 0.2, Absolute Neuts (auto) 6.9, Absolute Lymphs (auto) 0.53 L, Nucleated RBC % 0.4, Differential Comment , Anisocytosis 1+ 01/09/20 14:05: Sodium 135 L, Potassium 4.4, Chloride 99, Carbon Dioxide 27.0, Anion Gap 9, BUN 22 H, Creatinine 1.20, Estim Creat Clear Calc 58.56, Est GFR (MDRD) Af Amer 79, Est GFR (MDRD) Non-Af 65, BUN/Creatinine Ratio 18.3, Glucose 370 H, Calcium 8.6, Total Bilirubin 0.60, AST 18, ALT 28, Alkaline Phosphatase 93, Total Protein 7.0, Albumin 3.1 L, Globulin 3.9, Albumin/Globulin Ratio 0.8 L 01/09/20 14:05: Lactic Acid 2.4 H* 01/09/20 14:35: Urine Color Yellow, Urine Clarity Sl. Cloudy, Urine pH 6.0, Ur Specific Reasnor 1.010, Urine Protein 15 H, Urine Glucose (UA) 1000 H, Urine Ketones 15 H, Urine Occult Blood 10 H, Urine Nitrite Positive H, Urine Bilirubin Negative, Urine Urobilinogen Normal, Ur Leukocyte Esterase 100 H, Urine RBC 0-5 SEEN, Urine WBC 10-25 SEEN, Ur Squamous Epith Cells 0-5 SEEN, Urine Bacteria 1+, Urine Mucus 0 SEEN 01/09/20 18:05: MRSA (PCR) Negative 01/09/20 18:08: POC Glucose 303 H 01/09/20 19:43: Lactic Acid 3.5 H* 01/09/20 21:49: POC Glucose 281 H 01/10/20 03:50: WBC 8.6, RBC 3.50 L, Hgb 9.6 L, Hct 31.2 L, MCV 89.1, MCH 27.4, MCHC 30.8 L, RDW Std Deviation 66.9 H, RDW Coeff of Maia 21.2 H, Plt Count 163, MPV 9.0, Immature Gran % (Auto) 0.200, Neut % (Auto) 79.1 H, Lymph % (Auto) 6.1 L, Broome % (Auto) 14.4 H, Eos % (Auto) 0.1, Baso % (Auto) 0.1, Absolute Neuts (auto) 6.8, Absolute Lymphs (auto) 0.52 L, Nucleated RBC % 0.4, Differential Comment SCANNED, Anisocytosis 3+ 01/10/20 03:50: Sodium 138, Potassium 3.5, Chloride 104, Carbon Dioxide 26.0, Anion Gap 8, BUN 15, Creatinine 0.99, Estim Creat Clear Calc 68.89, Est GFR (MDRD) Af Amer 99, Est GFR (MDRD) Non-Af 82, BUN/Creatinine Ratio 15.2, Glucose 169 H, Calcium 7.8 L, Magnesium 1.9 01/10/20 03:50: Lactic Acid 1.7 01/10/20 07:26: POC Glucose 97 01/10/20 11:11: POC Glucose 266 H Current Medications Acetaminophen (Tylenol) 650 mg PO Q6H PRN PRN PRN Reason: Pain Score 1-10/Temp > 100.7 F Last Admin: 01/10/20 02:41 Dose: 650 mg Documented by: Ascorbic Acid (Vitamin C) 500 mg PO DAILY [facility] Last Admin: 01/10/20 08:53 Dose: 500 mg Documented by: Aspirin (Aspirin, Baby) 81 mg PO DAILYCM [facility] Last Admin: 01/10/20 08:17 Dose: 81 mg Documented by: Atorvastatin Calcium (Lipitor) 40 mg PO QHS [facility] Last Admin: 01/09/20 21:54 Dose: 40 mg Documented by: Dextrose (D50w Syringe) 0 gm IV X1 PRN; Protocol PRN Reason: Hypoglycemia Duloxetine HCl (Cymbalta) 60 mg PO DAILY [facility] Last Admin: 01/10/20 08:53 Dose: 60 mg Documented by: Enoxaparin Sodium (Lovenox) 40 mg SC DAILY [facility] Last Admin: 01/10/20 08:51 Dose: 40 mg Documented by: Gabapentin (Neurontin) 100 mg PO TIDCM [facility] Last Admin: 01/10/20 11:14 Dose: 100 mg Documented by: Glucagon () 1 mg IM .X1 PRN PRN Reason: Hypoglycemia Hydralazine HCl (Apresoline Iv) 5 mg IV Q4H PRN PRN PRN Reason: BLOOD PRESSURE Sodium Chloride () 1,000 mls @ 75 mls/hr IV .[id number] [facility] Last Infusion: 01/10/20 05:27 Dose: 0 mls/hr Documented by: Piperacillin Sod/Tazobactam (Sod 3.375 gm/ Sodium Chloride) 50 mls @ 12.5 mls/hr IV Q8 [facility] Stop: 01/16/20 14:01 Last Infusion: 01/10/20 09:41 Dose: Infused Documented by: Insulin Glargine (Lantus (Bkc)) 70 units SC QHS [facility] Last Admin: 01/09/20 21:51 Dose: 70 u Documented by: Insulin Human Lispro (Humalog Kwikpen (Bkc)) 17 unit SC TIDAC [facility] Last Admin: 01/10/20 11:13 Dose: 17 units Documented by: Insulin Human Lispro (Humalog Kwikpen (Bk)) 0 unit SC ACHS [facility]; Protocol Last Admin: 01/10/20 11:14 Dose: 2 units Documented by: Lisinopril (Zestril) 2.5 mg PO DAILY [facility] Last Admin: 01/10/20 08:52 Dose: 2.5 mg Documented by: Melatonin (Melatonin) 3 mg PO QHS PRN PRN PRN Reason: INSOMNIA Metoprolol Tartrate (Lopressor (Beta Blanca)) 12.5 mg PO BID [facility] Last Admin: 01/10/20 08:52 Dose: 12.5 mg Documented by: Ondansetron HCl (Zofran) 4 mg IV Q8H PRN PRN PRN Reason: NAUSEA/VOMITING Pantoprazole Sodium (Protonix) 40 mg PO DAILY [facility] Last Admin: 01/10/20 08:52 Dose: 40 mg Documented by: Assessment/Plan This patient was seen in conjunction with SHUBHAM Mai . I have independently interviewed and examined the patient and reviewed pertinent historical, laboratory, and other data. Please refer to SHUBHAM Mai note for details of this patient's presentation, findings, and recommendations. I have reviewed SHUBHAM Mai note and concur with documented findings. In brief, patient is a 4-year-old gentleman with multiple comorbidities including adenocarcinoma of the rectum, type 2 diabetes mellitus essential hypertension who was admitted with severe sepsis secondary to UTI. Admitted to a monitored bed where patient is currently undergoing evaluation and treatment Physical Examination: GENERAL: cooperative HEENT: Atraumatic; EYES; Anicteric, Normal Conjunctiva NECK; supple, normal thyroid, RESPIRATORY: Diminished to auscultation CARDIOVASCULAR: Regular S1 S2, GI: soft, normoactive bowel sounds, : No Renal angle tenderness; EXTREMITIES: No edema, no clubbing, MUSCULOSKELETAL: no muscle waisting NEURO: Awake; no lateralizing signs. SKIN: No Rash PSYCH; Flat affect Assessment: 1. 1. Severe sepsis secondary to UTI 2. Adenocarcinoma involving the rectum 3. Diabetes mellitus type 2 4. Dehydration 5. Coronary artery disease 6. Essential hypertension 7. Coronary artery disease 8. Dyslipidemia 9. Previous history of CVA 10. Centra sleep apnea 11. Anemia secondary to anemia of chronic disorder 12. GERD 13. Depression Recommendations: 1. I have discussed the results of my overview and impressions with the patient 2. Options for management were reviewed Inpatient E&M: 43001 Subs Hosp L3
[2020-01-10] MEDS: Insulin Lispro 100 UNIT/ML INSULN.PEN SC ×3 (11:14→21:05)
[2020-01-10 11:20] LABS: Bedside Glucose 266 mg/dL (70-110)
[2020-01-10] MEDS: 0.9% Normal Saline 1,000 ML 75 ML IV (13:31)
--- NOTE | 2020-01-10 16:20 | CASEMGMT ---
RASHI ARVIZU NOTE: PT/OT notes have been reviewed--additional therapy recommended. RASHI ARVIZU to room to talk w/pt. Pt sitting up in recliner chair, awake/alert/oriented. Pt states he does not want HHC, but he would like OP therapy and is not sure where he would go, but most likely thinks he would like to go to [facility] for OP therapy. RASHI ARVIZU explained OP script would be obtained from MD and he could take to any OP therapy facility of his choice. Pt voices understanding. Dr Robertson made aware of pt's wishes for OP therapy. Script placed on pt's chart, awaiting Dr Robertson's signature per his request and staff to give to pt once it is signed. freight rate analyst, Britt, and pt's RN, Simi, both made aware. Joaquín CRUZN RASHI ARVIZU
[2020-01-10 16:26] LABS: Bedside Glucose 287 mg/dL (70-110)
[2020-01-10] MEDS: Atorvastatin Calcium 40 MG Tablet PO (21:06)
[2020-01-10] MEDS: hydrALAZINE 20 MG/ML Vial 5 MG IV (21:08)
[2020-01-10] MEDS: MELATONIN 3 MG TABLET PO (21:13)
[2020-01-10 21:21] LABS: Bedside Glucose 330 mg/dL (70-110)
[2020-01-11 03:00] VITALS: BP 127/71; PULSE 87; RESP 17; TEMP 36.8; O2SAT 93
[2020-01-11] MEDS: 0.9% Normal Saline 1,000 ML 75 ML IV (03:03)
[2020-01-11 06:35] LABS: Hemoglobin 9.3 g/dL (13.0-16.5); Mean Corp Hgb Conc 32.1 g/dL (32-36); Mean Corpuscular Hgb 27.8 pg (27.0-32.0); Mean Corpuscular Volume 86.6 fL (80-94); Mean Platelet Vol. 9.1 fl (6.2-12.0); POSITIVE MORPHOLOGY YES; Platelet Count 136 K/mm3 (150-450); RBC Distribution Width CV 21.2 % (11.6-14.6); RBC Distribution Width SD 64.6 fl (35.1-43.9); Red Blood Count 3.35 M/mm3 (4.6-6.2); White Blood Count 8.2 K/mm3 (4.4-11.0)
[2020-01-11 06:38] LABS: Scan Indicated on CBC? Y/N YES- FLAGS NOTED
[2020-01-11 07:04] LABS: Anion Gap 6 (5-15); BUN 14 mg/dL (7-18); BUN/Creat Ratio 15.8 RATIO (10-20); Calcium,Total 8.2 mg/dL (8.5-10.1); Chloride 105 mmol/L (98-107); Creatinine, Serum 0.89 mg/dL (0.70-1.30); EST Glomerular Filtration Rate 93 mL/min (>60); Est Glom Filt Rate - Afr Amer 112 mL/min (>60); Estimated Creatinine Clearance 79.36 ml/min; Glucose 225 mg/dL (74-106); Magnesium 1.8 mg/dL (1.6-2.6); Potassium 3.6 mmol/L (3.5-5.1); Sodium Level 139 mmol/L (136-145)
[2020-01-11 07:31] LABS: Bedside Glucose 213 mg/dL (70-110)
[2020-01-11 07:34] VITALS: PULSE 90
[2020-01-11 09:00] VITALS: BP 147/85; PULSE 89; RESP 17; TEMP 36.6; O2SAT 94
[2020-01-11] MEDS: Insulin Lispro 100 UNIT/ML INSULN.PEN 17 UNIT SC (09:23)
[2020-01-11] MEDS: Aspirin 81 MG TAB.CHEW PO (09:24)
[2020-01-11] MEDS: Insulin Lispro 100 UNIT/ML INSULN.PEN SC (09:24)
[2020-01-11 09:25] VITALS: PULSE 89
[2020-01-11] MEDS: Metoprolol Tartrate 25 MG Tablet 12.5 MG PO (09:25)
[2020-01-11] MEDS: Gabapentin 100 MG Capsule PO (09:25)
[2020-01-11] MEDS: Pantoprazole Sodium 40 MG Tablet PO (09:25)
[2020-01-11] MEDS: DULoxetine Hcl 60 MG Capsule PO (09:25)
[2020-01-11] MEDS: Lisinopril 2.5 MG Tablet PO (09:26)
[2020-01-11] MEDS: Ascorbic Acid 500 MG Tablet PO (09:26)
--- NOTE | 2020-01-11 09:49 | DCINST_ITS ---
- Discharge Diagnoses Current Active Problems: Current Active and Chronic Problems (Last Reviewed 01/09/20 @ 17:[address] Ling Ford DO) Urinary tract infection (Acute) Severe sepsis (Acute) You will use the following diet at home:: No restrictions Discharge Activity: Return to Normal Activity Call your doctor if you observe: Shortness of breath, Dizziness, Fainting spells, Chest pain Allergies/Adverse Reactions: Allergies No Known Allergies Allergy (Verified 01/09/20 12:19) Medications to take at Discharge Aspirin 81 mg PO DAILY 03/20/16 Duloxetine HCl 60 mg PO DAILY 03/20/16 insulin lispro 100 unit/mL subcutaneous pen See Rx Instructions SC .COMPLEX #60 ml 04/02/18 Insulin Detemir [Levemir FlexPen] 70 unit SUBCUT QHS 05/02/19 metoprolol tartrate 25 mg tablet 12.5 mg PO BID #90 tab 09/26/19 gabapentin 100 mg capsule 100 mg PO TID 10/07/19 Rosuvastatin Calcium 20 mg PO QHS 10/29/19 Ascorbic Acid [Vitamin C] 500 mg PO DAILY 01/09/20 Lisinopril [Zestril] 2.5 mg PO DAILY 01/09/20 Omeprazole 40 mg PO DAILY 01/09/20 Cefadroxil Hydrate [Duricef] 1,000 mg PO BID #28 cap 01/11/20 The following prescriptions were given: Cefadroxil Hydrate [Duricef] 1,000 mg PO BID #28 cap Transmission Status: Pending to [id number] Primary Care Physician: Kendy Modi MD [Primary Care Provider] - Please follow up with your Primary Care Physician in: 1 Week Test Results: Test results from this visit will be discussed in further detail at your follow- up appointment, if applicable. Please Follow Up With: Dwayne Leonardo DO When: As scheduled Proposed Discharge Date: 01/11/20
--- NOTE | 2020-01-11 10:03 | PCM.DC.SUM ---
<Meri Oliveira - Last Filed: 01/11/20 10:12> Discharge Date and Diagnosis Date of Admission: 01/09/20 Date of Discharge: 01/11/20 - Primary Discharge Diagnosis Acute Problems: Active Problems (Last Reviewed 01/09/20 @ 17:[address] Ling Ford DO) 1. Severe sepsis secondary to Klebsiella UTI 2. Rectal CA adenocarcinoma 3. Mild dehydration, chronic kidney disease stage II 4. Type 2 diabetes mellitus with diabetic neuropathy 5. CAD 6. History of CVA 7. Hypertension 8. Hyperlipidemia 9. ALEJANDRO/central sleep apnea 10. Depression 11. GERD 12. Chronic normocytic anemia - Secondary Discharge Diagnosis Chronic Problems: Chronic Problems (Last Reviewed 01/09/20 @ 17:[address] Ling Ford DO) TIA (transient ischemic attack) (Chronic) Ischemic cardiomyopathy (Chronic) Rectal cancer (Chronic) Obstructive sleep apnea (Chronic) Restrictive lung disease (Chronic) Type 2 diabetes mellitus (Chronic) Anxiety disorder (Chronic) GERD (gastroesophageal reflux disease) (Chronic) Carotid artery disease (Chronic) S/P right and left heart catheterization (Chronic 01/22/15) History of coronary artery stent placement (Chronic 01/02/15) AOG-ZAX-WPE-Ramus 01/02/15 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) H/O coronary artery bypass surgery (Chronic 05/30/08) CABG x 5 05/30/2008 ZUNIGA-LAD and D1, Free KIMBERLYN-PDA, SVG-Ramus, SVG-OM1 Peripheral vascular occlusive disease (Chronic) CVA (cerebral vascular accident) (Chronic) cerebellar stroke Right endarterectomy HTN (hypertension) (Chronic) Dyslipidemia (Chronic) ALEJANDRO (obstructive sleep apnea) (Chronic) Hospital Course and Treatment Imaging Results: Diagnostic Data Chest X-Ray 01/09/20 12:55 IMPRESSION: Stable examination suggestive of linear scarring at the left lung base. No focal consolidation is seen. Electronically Signed: Navdeep Gonzales, at 13:55 EDT , Service support , Operations: None Procedures: None Summary of Care Provided: The patient is a 64 year old M admitted 01/09/2020 due to fever. 1. Severe sepsis secondary to Klebsiella UTI-urine culture grew Klebsiella which is same as prior urine culture. IV Zosyn during admission. Transition to Duricef 1000 mg p.o. twice daily to complete course of antibiotics. Discussed with patient and if he has any recurrent urinary symptoms in the future to see his primary care physician right away. Follow-up with PCP in 1 week. Blood cultures show no growth thus far. 2. Rectal CA adenocarcinoma-undergoing chemotherapy. Follows with Dr. Leonardo. 3. Mild dehydration, chronic kidney disease stage II-no acute kidney injury. Mild dehydration improved. 4. Type 2 diabetes mellitus with diabetic neuropathy-Continue home Levemir and lispro regimen. Continue gabapentin. 5. CAD-continue aspirin, statin, metoprolol, lisinopril. 6. History of CVA-continue aspirin, statin. 7. Hypertension-stable, continue metoprolol, lisinopril. Given elevated blood pressure, will increase home lisinopril regimen to 10 mg daily. 8. Hyperlipidemia- continue statin. 9. ALEJANDRO/central sleep apnea- continue PAP regimen. 10. Depression- continue cymbalta regimen. 11. GERD- continue PPI. 12. Chronic normocytic anemia-stable. General: Alert, Oriented x3, Cooperative HEENT: Atraumatic, PERRLA, EOMI, Normocephalic Neck: Supple, No JVD, Negative Carotid Bruits Lungs: Clear to auscultation, Normal air movement Cardiovascular: Regular rate, No murmurs Abdomen: Bowel Sounds Present, Soft, Non Tender Extremities: No edema, Capillary Refill Less than 3 Seconds Skin: No rashes, No breakdown, - - Right chest port Musculoskeletal: No Tenderness to Palpation of Joints or Extremities Neurological: Cranial nerves II-XII grossly intact, Neuro grossly intact Psych/Mental Status: Normal Affect, Appropriate Patient seen and examined prior to discharge. Physical assessment as noted above. Patient is stable for discharge with follow up recommendations as noted above. This patient was seen by SHUBHAM Mai under the supervision of Dr. Robertson. - Physical Exam Vitals/I&O's: Vital Signs Temp Pulse Resp BP Pulse Ox 97.8 F 89 17 147/85 H 94 01/11/20 09:00 01/11/20 09:25 01/11/20 09:00 01/11/20 09:00 01/11/20 09:00 Oxygen Delivery Method Room Air Weight: 143 lb 11.862 oz Body Mass Index (BMI) 21.7 Finger Stick Blood Glucose 363 Intake and Output for Last 24 Hours 01/09/20 01/10/20 01/11/20 23:59 23:59 23:59 Intake Total 2912.5 / 3272.5 3033.33 / 3033.33 539.17 / 539.17 Output Total 1300 / 1300 550 / 550 Balance 2912.5 / 3272.5 1733.33 / 1733.33 -10.83 / -10.83 Microbiology Past 72 Hours 01/09/20 14:35 Interface Orders Urine Culture - Final Klebsiella pneumoniae sp pneum Laboratory Results 01/10/20 11:11: POC Glucose 266 H 01/10/20 16:16: POC Glucose 287 H 01/10/20 21:02: POC Glucose 330 H 01/11/20 06:05: WBC 8.2, RBC 3.35 L, Hgb 9.3 L, Hct 29.0 L, MCV 86.6, MCH 27.8, MCHC 32.1, RDW Std Deviation 64.6 H, RDW Coeff of Maia 21.2 H, Plt Count 136 L, MPV 9.1, Differential Comment COMMENT 01/11/20 06:05: Sodium 139, Potassium 3.6, Chloride 105, Carbon Dioxide 28.0, Anion Gap 6, BUN 14, Creatinine 0.89, Estim Creat Clear Calc 79.36, Est GFR (MDRD) Af Amer 112, Est GFR (MDRD) Non-Af 93, BUN/Creatinine Ratio 15.8, Glucose 225 H, Calcium 8.2 L, Magnesium 1.8 01/11/20 07:26: POC Glucose 213 H Current Medications Acetaminophen (Tylenol) 650 mg PO Q6H PRN PRN PRN Reason: Pain Score 1-10/Temp > 100.7 F Last Admin: 01/10/20 02:41 Dose: 650 mg Documented by: Ascorbic Acid (Vitamin C) 500 mg PO DAILY [facility] Last Admin: 01/11/20 09:26 Dose: 500 mg Documented by: Aspirin (A[facility]in, Baby) [facility] Last Admin: 01/11/20 09:24 Dose: 81 mg Documented by: Atorvastatin Calcium (Lipitor) 40 mg PO QHS [facility] Last Admin: 01/10/20 21:06 Dose: 40 mg Documented by: Dextrose (D50w Syringe) 0 gm IV X1 PRN; Protocol PRN Reason: Hypoglycemia Duloxetine HCl (Cymbalta) 60 mg PO DAILY [facility] Last Admin: 01/11/20 09:25 Dose: 60 mg Documented by: Enoxaparin Sodium (Lovenox) 40 mg SC DAILY [facility] Last Admin: 01/11/20 09:25 Dose: Not Given Documented by: Gabapentin (Neurontin) 100 mg PO TIDCM [facility] Last Admin: 01/11/20 09:25 Dose: 100 mg Documented by: Glucagon () 1 mg IM .X1 PRN PRN Reason: Hypoglycemia Hydralazine HCl (Apresoline Iv) 5 mg IV Q4H PRN PRN PRN Reason: BLOOD PRESSURE Last Admin: 01/10/20 21:08 Dose: 5 mg Documented by: Sodium Chloride () 1,000 mls @ 75 mls/hr IV .[id number] [facility] Last Infusion: 01/11/20 06:11 Dose: 0 mls/hr Documented by: Piperacillin Sod/Tazobactam (Sod 3.375 gm/ Sodium Chloride) 50 mls @ 12.5 mls/hr IV Q8 [facility] Stop: 01/16/20 14:01 Last Admin: 01/11/20 06:10 Dose: 12.5 mls/hr Documented by: Insulin Glargine (Lantus (Bkc)) 70 units SC QHS [facility] Last Admin: 01/10/20 21:05 Dose: 70 u Documented by: Insulin Human Lispro (Humalog Kwikpen (Bkc)) 17 unit SC TIDAC [facility] Last Admin: 01/11/20 09:23 Dose: 17 units Documented by: Insulin Human Lispro (Humalog Kwikpen (Bkc)) 0 unit SC ACHS [facility]; Protocol Last Admin: 01/11/20 09:24 Dose: 2 units Documented by: Lisinopril (Zestril) 2.5 mg PO DAILY [facility] Last Admin: 01/11/20 09:26 Dose: 2.5 mg Documented by: Melatonin (Melatonin) 3 mg PO QHS PRN PRN PRN Reason: INSOMNIA Last Admin: 01/10/20 21:13 Dose: 3 mg Documented by: Metoprolol Tartrate (Lopressor (Beta Blanca)) 12.5 mg PO BID [facility] Last Admin: 01/11/20 09:25 Dose: 12.5 mg Documented by: Ondansetron HCl (Zofran) 4 mg IV Q8H PRN PRN PRN Reason: NAUSEA/VOMITING Pantoprazole Sodium (Protonix) 40 mg PO DAILY [facility] Last Admin: 01/11/20 09:25 Dose: 40 mg Documented by: Discharge Diet: No Restrictions Discharge Activity: Return to Normal Activity Call your doctor if you observe: Shortness of breath, Dizziness, Fainting spells, Chest pain Home Medications: Medications to take at Discharge Aspirin 81 mg PO DAILY 03/20/16 Duloxetine HCl 60 mg PO DAILY 03/20/16 insulin lispro 100 unit/mL subcutaneous pen See Rx Instructions SC .COMPLEX #60 ml 04/02/18 Insulin Detemir [Levemir FlexPen] 70 unit SUBCUT QHS 05/02/19 metoprolol tartrate 25 mg tablet 12.5 mg PO BID #90 tab 09/26/19 gabapentin 100 mg capsule 100 mg PO TID 10/07/19 Rosuvastatin Calcium 20 mg PO QHS 10/29/19 Ascorbic Acid [Vitamin C] 500 mg PO DAILY 01/09/20 Omeprazole 40 mg PO DAILY 01/09/20 Cefadroxil Hydrate [Duricef] 1,000 mg PO BID #28 cap 01/11/20 Lisinopril [Zestril] 10 mg PO DAILY #30 tab 01/11/20 Following Prescrptions Were Given to Patient: Cefadroxil Hydrate [Duricef] 1,000 mg PO BID #28 cap [id number] Lisinopril [Zestril] 10 mg PO DAILY #30 tab Transmission Status: Received by [id number] Primary Care Physician: Kendy Modi MD [Primary Care Provider] - Please follow up with your Primary Care Physician in: 1 Week Please Follow Up With: Dwayne Leonardo DO When: As scheduled Disposition: Home Minutes spent on discharge:: 35 Patient Condition:: Stable Medical Necessity - Tobacco Use Smoking Status: Never smoker Tobacco Use: Non-smoker Meaningful Use Info Meaningful Use Diagnoses (Choose all that apply): None applicable <Tay Robertson - Last Filed: 01/11/20 10:29> Discharge Date and Diagnosis - Secondary Discharge Diagnosis Chronic Problems: Chronic Problems (Last Reviewed 01/09/20 @ 17:[address] Ling Ford DO) TIA (transient ischemic attack) (Chronic) Ischemic cardiomyopathy (Chronic) Rectal cancer (Chronic) Obstructive sleep apnea (Chronic) Restrictive lung disease (Chronic) Type 2 diabetes mellitus (Chronic) Anxiety disorder (Chronic) GERD (gastroesophageal reflux disease) (Chronic) Carotid artery disease (Chronic) S/P right and left heart catheterization (Chronic 01/22/15) History of coronary artery stent placement (Chronic 01/02/15) IZU-ESA-MUF-Ramus 01/02/15 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) H/O coronary artery bypass surgery (Chronic 05/30/08) CABG x 5 05/30/2008 ZUNIGA-LAD and D1, Free KIMBERLYN-PDA, SVG-Ramus, SVG-OM1 Peripheral vascular occlusive disease (Chronic) CVA (cerebral vascular accident) (Chronic) cerebellar stroke Right endarterectomy HTN (hypertension) (Chronic) Dyslipidemia (Chronic) ALEJANDRO (obstructive sleep apnea) (Chronic) Hospital Course and Treatment Summary of Care Provided: This patient was seen in conjunction with SHUBHAM Mai . I have independently interviewed and examined the patient and reviewed pertinent historical, laboratory, and other data. Please refer to SHUBHAM Mai note for details of this patient's presentation, findings, and recommendations. I have reviewed SHUBHAM Mai note and concur with documented findings. In brief, patient is a 64-year-old gentleman with multiple comorbidities including adenocarcinoma of the rectum, type 2 diabetes mellitus essential hypertension who was admitted with severe sepsis secondary to UTI. Admitted to a monitored bed where patient is currently undergoing evaluation and treatment Assessment: 1. 1. Severe sepsis secondary to UTI with Klebsiella 2. Adenocarcinoma involving the rectum 3. Diabetes mellitus type 2 4. Dehydration 5. Coronary artery disease 6. Essential hypertension 7. Coronary artery disease 8. Dyslipidemia 9. Previous history of CVA 10. Centra sleep apnea 11. Anemia secondary to anemia of chronic disorder 12. GERD 13. Depression Hospital course: As documented above - Physical Exam Vitals/I&O's: Vital Signs Temp Pulse Resp BP Pulse Ox 97.8 F 89 17 147/85 H 94 01/11/20 09:00 01/11/20 09:25 01/11/20 09:00 01/11/20 09:00 01/11/20 09:00 Oxygen Delivery Method Room Air Weight: 65.2 kg Body Mass Index (BMI) 21.7 Finger Stick Blood Glucose 363 Intake and Output for Last 24 Hours 01/09/20 01/10/20 01/11/20 23:59 23:59 23:59 Intake Total 2912.5 / 3272.5 3033.33 / 3033.33 539.17 / 539.17 Output Total 1300 / 1300 550 / 550 Balance 2912.5 / 3272.5 1733.33 / 1733.33 -10.83 / -10.83 Microbiology Past 72 Hours 01/09/20 14:35 Interface Orders Urine Culture - Final Klebsiella pneumoniae sp pneum Laboratory Results 01/10/20 11:11: POC Glucose 266 H 01/10/20 16:16: POC Glucose 287 H 01/10/20 21:02: POC Glucose 330 H 01/11/20 06:05: WBC 8.2, RBC 3.35 L, Hgb 9.3 L, Hct 29.0 L, MCV 86.6, MCH 27.8, MCHC 32.1, RDW Std Deviation 64.6 H, RDW Coeff of Maia 21.2 H, Plt Count 136 L, MPV 9.1, Differential Comment COMMENT 01/11/20 06:05: Sodium 139, Potassium 3.6, Chloride 105, Carbon Dioxide 28.0, Anion Gap 6, BUN 14, Creatinine 0.89, Estim Creat Clear Calc 79.36, Est GFR (MDRD) Af Amer 112, Est GFR (MDRD) Non-Af 93, BUN/Creatinine Ratio 15.8, Glucose 225 H, Calcium 8.2 L, Magnesium 1.8 01/11/20 07:26: POC Glucose 213 H Current Medications Acetaminophen (Tylenol) 650 mg PO Q6H PRN PRN PRN Reason: Pain Score 1-10/Temp > 100.7 F Last Admin: 01/10/20 02:41 Dose: 650 mg Documented by: Ascorbic Acid (Vitamin C) 500 mg PO DAILY [facility] Last Admin: 01/11/20 09:26 Dose: 500 mg Documented by: Aspirin (Aspirin, Baby) 81 mg PO DAILYCM [facility] Last Admin: 01/11/20 09:24 Dose: 81 mg Documented by: Atorvastatin Calcium (Lipitor) 40 mg PO QHS [facility] Last Admin: 01/10/20 21:06 Dose: 40 mg Documented by: Dextrose (D50w Syringe) 0 gm IV X1 PRN; Protocol PRN Reason: Hypoglycemia Duloxetine HCl (Cymbalta) 60 mg PO DAILY [facility] Last Admin: 01/11/20 09:25 Dose: 60 mg Documented by: Enoxaparin Sodium (Lovenox) 40 mg SC DAILY [facility] Last Admin: 01/11/20 09:25 Dose: Not Given Documented by: Gabapentin (Neurontin) 100 mg PO TIDCM [facility] Last Admin: 01/11/20 09:25 Dose: 100 mg Documented by: Glucagon () 1 mg IM .X1 PRN PRN Reason: Hypoglycemia Hydralazine HCl (Apresoline Iv) 5 mg IV Q4H PRN PRN PRN Reason: BLOOD PRESSURE Last Admin: 01/10/20 21:08 Dose: 5 mg Documented by: Sodium Chloride () 1,000 mls @ 75 mls/hr IV .[id number] [facility] Last Infusion: 01/11/20 06:11 Dose: 0 mls/hr Documented by: Piperacillin Sod/Tazobactam (Sod 3.375 gm/ Sodium Chloride) 50 mls @ 12.5 mls/hr IV Q8 [facility] Stop: 01/16/20 14:01 Last Admin: 01/11/20 06:10 Dose: 12.5 mls/hr Documented by: Insulin Glargine (Lantus (Bkc)) 70 units SC QHS [facility] Last Admin: 01/10/20 21:05 Dose: 70 u Documented by: Insulin Human Lispro (Humalog Kwikpen (Bkc)) 17 unit SC TIDAC [facility] Last Admin: 01/11/20 09:23 Dose: 17 units Documented by: Insulin Human Lispro (Humalog Kwikpen (Bkc)) 0 unit SC ACHS [facility]; Protocol Last Admin: 01/11/20 09:24 Dose: 2 units Documented by: Lisinopril (Zestril) 2.5 mg PO DAILY [facility] Last Admin: 01/11/20 09:26 Dose: 2.5 mg Documented by: Melatonin (Melatonin) 3 mg PO QHS PRN PRN PRN Reason: INSOMNIA Last Admin: 01/10/20 21:13 Dose: 3 mg Documented by: Metoprolol Tartrate (Lopressor (Beta Blanca)) 12.5 mg PO BID [facility] Last Admin: 01/11/20 09:25 Dose: 12.5 mg Documented by: Ondansetron HCl (Zofran) 4 mg IV Q8H PRN PRN PRN Reason: NAUSEA/VOMITING Pantoprazole Sodium (Protonix) 40 mg PO DAILY [facility] Last Admin: 01/11/20 09:25 Dose: 40 mg Documented by: Inpatient E&M: [id number] Disch Hosp
--- NOTE | 2020-01-11 10:10 | CASEMGMT ---
RASHI ARVIZU NOTE: Script for OP PT/OT obtained from SHUBHAM Mai and given to pt at this time. Pt aware he can take to location of his choice. Pt feels safe to d/c home and denies any other discharge needs or questions. Joaquín FERNANDEZ RN CM
[2020-01-11] MEDS: 0.9% Saline Lock 10 ML Syringe IV (11:37)
[2020-01-11 11:40] VITALS: BP 147/85; PULSE 86; PULSE 89; RESP 17; TEMP 36.6; O2SAT 94
--- NOTE | 2020-01-15 12:45 | CASEMGMT ---
Social Work follow up phone calls: Date of Discharge: 01/11/20 Reason for call: advance directives Duration of call: 2 minutes Outcome of call: Voice mail left providing contact information and offering assistance to answer questions or complete advance directives. SHAUN Dejesus
== END 2020-01-11 09:55 | disposition home or self-care (01) ==
LOC: ED 14:23 → PCU 16:27
PROVIDERS: Family Medicine; Admitting Provider Internal Medicine; Emergency Provider Emergency Medicine; PCP Family Medicine; Visit Provider Internal Medicine
DX: A41.9 Sepsis, unspecified organism (principal); N39.0 Urinary tract infection, site not specified; B96.1 Klebsiella pneumoniae [K. pneumoniae] as the cause of diseases classified elsewhere; C19 Malignant neoplasm of rectosigmoid junction; R65.20 Severe sepsis without septic shock; E86.0 Dehydration; I12.9 Hypertensive chronic kidney disease with stage 1 through stage 4 chronic kidney disease, or unspecified chronic kidney disease; E11.22 Type 2 diabetes mellitus with diabetic chronic kidney disease; N18.2 Chronic kidney disease, stage 2 (mild); E11.40 Type 2 diabetes mellitus with diabetic neuropathy, unspecified; I25.10 Atherosclerotic heart disease of native coronary artery without angina pectoris; E78.5 Hyperlipidemia, unspecified; G47.33 Obstructive sleep apnea (adult) (pediatric); F32.9 Major depressive disorder, single episode, unspecified; K21.9 Gastro-esophageal reflux disease without esophagitis; D64.9 Anemia, unspecified; Z86.73 Personal history of transient ischemic attack (TIA), and cerebral infarction without residual deficits; Z95.1 Presence of aortocoronary bypass graft
CPT/HCPCS: 36415; 71045; 80048; 80053; 81001; 82962; 83605; 83735; 85025; 85027; 87040; 87077; 87086; 87088; 87186; 87641; 96361; 96365; 96366; 96372; 96375; 97116; 97162; 97166; 99218; 99285; J7030; A4216; G0378

== ENCOUNTER → 2020-01-17 15:08 | Outpatient (CLI) | payer BC, SELFPAY ==
[2020-01-09 17:40] VITALS: BMI 21.7
[2020-01-17 18:02] LABS: Vitamin D,25 Hydroxy 16.5 ng/mL
== END ==
PROVIDERS: PCP Family Medicine; Visit Provider Family Medicine
DX: M81.0 Age-related osteoporosis without current pathological fracture (principal)
CPT/HCPCS: 36415; 82306

== ENCOUNTER 2020-08-24 06:12 | Day surgery (SDC) | payer BC, SELFPAY ==
[2020-08-24] VITALS (7 sets, daily range): BP systolic 86–129; BP diastolic 51–81; PULSE 83–97; RESP 14–16; TEMP 36.1–37.5; O2SAT 95–97; BMI 22.8
[2020-08-24] MEDS: Lactated Ringers 1,000 ML 100 ML IV (06:45)
--- NOTE | 2020-08-24 06:56 | HP.PCM_ITS ---
Problem List (1) GERD (gastroesophageal reflux disease) Status: Chronic Qualifiers: History and Physical Date of Admission: 08/24/20 ntake Visit Reasons: PORT REMOVAL/ EGD Chief Complaint: dysphagia/ port removal Account Resolution Analyst Required: No Is patient in pain?: No Allergies No Known Allergies Allergy (Verified 08/12/20 13:01) Medications Aspirin 81 mg PO DAILY 03/20/16 [History Confirmed 08/12/20] Duloxetine HCl 60 mg PO DAILY 03/20/16 [History Confirmed 08/12/20] insulin lispro 100 unit/mL subcutaneous pen See Rx Instructions SC .COMPLEX #60 ml 04/02/18 [Rx Confirmed 08/12/20] Insulin Detemir [Levemir FlexPen] 70 unit SC QHS 05/02/19 [History Confirmed 08/12/20] metoprolol tartrate 25 mg tablet 12.5 mg PO BID #90 tab 09/26/19 [Rx Confirmed 08/12/20] gabapentin 100 mg capsule 100 mg PO TID 10/07/19 [History Confirmed 08/12/20] Ascorbic Acid [Vitamin C] 500 mg PO DAILY 01/09/20 [History Confirmed 08/12/20] Omeprazole 40 mg PO DAILY 01/09/20 [History Confirmed 08/12/20] Cefadroxil Hydrate [Duricef] 1,000 mg PO BID #28 cap 01/11/20 [Rx Confirmed 08/12/20] Lisinopril [Zestril] 10 mg PO DAILY #30 tab 01/11/20 [Rx Confirmed 08/12/20] rosuvastatin 20 mg tablet 20 mg PO QHS #90 tab 02/21/20 [Rx Confirmed 08/12/20] [facility] Medical History (Updated 08/12/20 @ 13:[address] 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) Peripheral vascular occlusive disease (Chronic) CVA (cerebral vascular accident) (Chronic) HTN (hypertension) (Chronic) Dyslipidemia (Chronic) ALEJANDRO (obstructive sleep apnea) (Chronic) Diabetic neuropathy (Acute) Dysphagia (Acute) invasive rectal adenocarcinoma (Acute) Surgical History History of coronary artery stent placement (Chronic 01/02/15) H/O coronary artery bypass surgery (Chronic 05/30/08) Excision Max.Zygoma Face Tumor (Chronic) History of herniorrhaphy (Chronic) History of right-sided carotid endarterectomy (Chronic) History of tonsillectomy (Chronic) PTCA Left Anterior Tibial and Paroneal Artery (Chronic) Family History Father CAD (coronary artery disease) Hypertension Cancer leukemia Diabetes Heart disease High cholesterol Mother CVA (cerebral vascular accident) Diabetes Breast cancer Brother Diabetes Social History (Updated 08/12/20 @ 13:[address] Chris Biswas MD) Smoking Status: Never smoker HPI HPI HPI: MITCH VEGA, is a 64 M who presents to the office today for 2 separate reasons. He has been having aggravated GERD symptoms.He has a sigmoid colostomy. He has been treated by Dr. Dwayne Leonardo and is been referred by Dr. Dwayne Leonardo. He received chemotherapy for his rectal cancer. This seems to have aggravate swallowing problems. He had a wakens in the morning with a feeling in his throat and discomfort. He has tried elevating the head of his bed. He has triedAnd is currently on omeprazole therapy. He claims that his weight is stable. He claims that spicy foods do not aggravate it. He has never had an upper endoscopy. He is referred for evaluation of his GERD and is referred for removal of the port in his right internal jugular which is no longer needed for his chemotherapy.We were successful in removing his port form today HPI HPI HPI: MITCH VEGA, is a 64 M who presents to the office today for ROS General General: Yes fatigue and colon cancer; no weight change, appetite, breast cancer or weakness HEENT HEENT: Yes difficulty swallowing; no eye injury, eye surgery, swollen glands or hoarseness Endo Endocrine: Yes diabetes mellitus; no thyroid disease, thyroid cancer, Hair loss, heat intolerance or cold intolerance Musc Musculoskeletal: Yes back problems; no arthritis, rheumatoid arthritis, gout or joint pain Cardio Cardiovascular: Yes heart disease, high blood pressure, heart attack and heart stent; no murmur, pacemaker, atrial fibrillation, palpitations, shortness of breat with exertion or chest pain Psych Psychiatric: Yes depression and anxiety; no hearing voices Resp Respiratory: No shortness of breath, Yes sleep apnea, No cough, No COPD, No asthma, No emphysema, No wheezing Gastro Gastrointestinal: No abdominal pain, Yes nausea or vomiting, Yes diarrhea, No constipation, No blood in stool, Yes acid reflux, No hemorrhoids, No ulcers, No gallbladder problem, No black,tarry stools Hjony Hematologic: Yes blood thinners, No blood disorders, No bleeding, No anemia, No blood clots Neuro Neurologic: No weakness Exam Const General: cooperative, comfortable, no acute distress Nutritional Appearance: average body habitus Orientation: alert, awake [facility] Head: normal to inspection Chest Other: Right upper chest port in position without evidence of infection Resp Effort & Inspection: normal respiratory effort Auscultation: clear to auscultation bilaterally Cardio Rate: regular rate Rhythm: regular rhythm Heart Sounds: no murmurs GI Palpation: soft, no hepatosplenomegaly Auscultation: normal bowel sounds Other: Left lower quadrant and sigmoid colostomy Neuro General: alert Psych Affect: normal affect Office Procedures Port/Cath Removal Provider Documentation Details:: Port removal: Right internal jugular Timeout and informed consent was obtained. The patient was taken to the procedure room and placed supine on the table. The site of the port was sterilely prepped and draped. 1% lidocaine mixed 50-50 with 0.5% Marcaine was used as local anesthetic. A total of [6] cc was used. The previous incision was elliptically completely excised and discarded. Sharp and blunt dissection was used to identify the port. The tubing was released and with continuous pressure held upon the tunnel site the tubing was removed. The holding sutures of the port were released and the port was removed from the pocket. Hemostasis was intact. The subdermal edges were approximated with interrupted 3-0 chromic. Skin edges were approximated with Steri-Strips. Telfa OpSite dressing applied. Blood loss was minimal. The patient was given activity and wound care instructions. Further office follow-up can be as needed. Chris Biswas M.D., F.A.C.S. Alert Hand Almond Blancher Alert Billing: Yes Port/Peg Port/Pe Port Removal Procedure Time Out Time Out Informed consent given: Yes Consent signed: Yes Time out checklist: patient, procedure, site marked/identified, positioning of patient, supplies available, allergies confirmed, team agrees on procedure Time out staff in room: Yes Time out verified: Yes Time out date: 08/12/20 Time out time: 13:02 Assessment & Plan Problems 1. Gastroesophageal reflux disease, unspecified whether esophagitis present K21.9 Plan Successful removal of his right internal jugular port. I propose for the patient a esophagogastroduodenoscopy with possible biopsy or polypectomy as indicated. He has had coronary artery bypass surgery and coronary stents. 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 Joao Olmos who has since left the area. I anticipate performing the upper endoscopy with monitored anesthesia care. He is aware of the technique, benefit, risk, alternatives. He has had an opportunity ask and have questions answered. We will schedule procedure at his discretion. We will notify the [facility] of our intentions. I appreciate the opportunity of assisting with his surgical care Copy: Dr. Dwayne Leonardo and Dr Kendy Biswas M.D., F.A.C.S. Orders Orders: Port/Cath Removal Today EGD Today K21.9, R13.10 Coding Level of Care Code Attention Heather Diagnoses Gastroesophageal reflux disease, unspecified whether esophagitis present K21.9 ??Esophagitis presence: esophagitis presence not specified I have re-examined the patient. There are no clinical changes since date of exam. Procedure Criteria Procedure Type: Elective COVID Risk Discussion: The surgeon/proceduralist and patient have discussed in detail the risk of exposure to and/or potential harm posed by the COVID-19 virus with having a surgery/procedure at this time versus the risk of delaying the surgery/procedure. It is not possible to know either the risk of delaying the surgery or procedure or chance of getting an infection with perfect accuracy, but a joint decision was made between the patient and the surgeon/proceduralist to proceed at this time with the scheduled surgery/procedure as indicated on the consent form.
[2020-08-24 07:00] LABS: Bedside Glucose 219 mg/dL (70-110)
--- NOTE | 2020-08-24 07:15 | EGD_PTH ---
PATIENT: MITCH VEGA LOC: EN U#:[id number] AGE/SX: 64/M ROOM: RE08/24/[address]: Dr. Chris Biswas MD : 1955 BED: DIS: 08/24/2020 SPEC #: [id number] RECD: 08/24/20 11:21 STATUS: NILDA STEENRosey #: [id number] MORRO: 08/24/20 07:[address]: Chris Biswas DEPT: SURGICAL PATHOLOGY RECD BY: Iveth Cunningham ENTERED: 08/24/20 12:34 SP TYPE: EGD BIOPSY OT DR: Dr. Kendy Modi MD Tissues: A - Duodenum, NOS B - Gastric mucous membrane C - Esophagus, NOS D - Esophagus, NOS Procedures: Surgery Specimen Level IV HEADER OPERATION: E[place] ([facility] [place] PRE-OP DIAGNOSIS: GERD TISSUE SUBMITTED: A - Duodenal biopsy, B - Antral biopsy for H. pylori and pathology, C - Distal esophageal biopsies, D - Mid esophageal biopsies MICROSCOPIC DIAGNOSIS A. Duodenal biopsy: Fragments of duodenal mucosa, no pathologic diagnosis. B. Antral biopsy: Mild gastritis. See microscopic description and comment. C. Distal esophageal biopsy: Fragments of squamous mucosa, no pathologic diagnosis. D. Mid esophageal biopsy: Fragments of squamous epithelium, no pathologic diagnosis. SJ:alejandro 08/25/20 COMMENT B. The results of immunohistochemistry for Helicobacter pylori will be reported separately ([id number]). MICROSCOPIC DESCRIPTION Slides are reviewed. B. The specimen shows fragments of gastric mucosa with chronic inflammatory cell infiltrates in the lamina propria consisting of lymphocytes and plasma cells, consistent with mild chronic gastritis. GROSS DESCRIPTION A - Received in fixative is one container labeled with the patient's name and designated duodenal biopsy. The specimen consists of two irregular fragments of light metcalf soft tissue that in aggregate measure 0.5 x 0.3 x 0.1 cm. The specimen is totally submitted in one cassette. B - Received in fixative is one container labeled with the patient's name and designated antral biopsy. The specimen consists of two irregular fragments of light metcalf soft tissue that in aggregate measure 0.5 x 0.3 x 0.1 cm. The specimen is totally submitted in one cassette. C - Received in fixative is one container labeled with the patient's name and designated distal esophageal biopsy. The specimen consists of multiple irregular fragments of light metcalf soft tissue that in aggregate measure 0.5 x 0.4 x 0.1 cm. The specimen is totally submitted in one cassette. D - Received in fixative is one container labeled with the patient's name and designated mid esophageal biopsy. The specimen consists of multiple irregular fragments of light metcalf soft tissue that in aggregate measure 1 x 0.5 x 0.1 cm. The specimen is totally submitted in one cassette. / SJ:rg 08/24/20 TC:3 CPT: 81573 x4
--- NOTE | 2020-08-24 07:15 | IMM_PTH ---
PATIENT: MITCH VEGA LOC: EN U#:[id number] AGE/SX: 64/M ROOM: RE08/24/[address]: Dr. Chris Biswas MD : 1955 BED: DIS: 08/24/2020 SPEC #: [id number] RECD: 08/24/20 12:31 STATUS: NILDA RERosey #: [id number] MORRO: 08/24/20 07:[address]: Chris Biswas DEPT: IMMUNOHISTOCHEMISTRY RECD BY: Shanda Alexander ENTERED: 08/24/20 12:32 SP TYPE: IMMUNO OTHR DR: Dr. Kendy Modi MD Tissues: B - Stomach, NOS Procedures: H Pylori (initial) PHYSICIAN & INSTITUTION [place] [id number] SPECIMEN INFORMATION: Tissue Source: B - Antral biopsy Clinical Info: GERD Specimen Number: [id number] CPT code: 98630 METHODOLOGY: Deparaffinized sections of prefer/formalin-fixed tissue or PAP/DQ stained slides are incubated with monoclonal/polyclonal antibodies/oligonucleotide probes. Localization is made via biotin free immunoperoxidase method. Appropriate controls are performed and reacted as expected. Results on target cell population are indicated in the following table: RESULTS: ANTIBODY / CLONE RESULT Block B H Pylori (polyclonal) negative These tests were developed and their performance characteristics determined by [facility]. They may not have been cleared or approved by the U.S. Food and Drug Administration. The FDA has determined that such clearance or approval is not necessary. INTERPRETATION: B. Antral biopsy: Negative for Helicobacter pylori organisms. SJ:alejandro 08/26/2020
--- NOTE | 2020-08-24 07:26 | OP.EGD_ITS ---
Patient Name: Yony Haji Procedure Date: 08/24/2020 6:44 AM Date of : 1955 Age: 64 Procedure: Upper GI endoscopy Indications: Suspected gastro-esophageal reflux disease Providers: Chris Biswas MD Referring MD: Kendy Modi Medicines: See the Anesthesia note for documentation of the administered medications Complications: No immediate complications. Procedure: Pre-Anesthesia Assessment: - Prior to the procedure, a History and Physical was performed, and patient medications and allergies were reviewed. The patient's tolerance of previous anesthesia was also reviewed. The risks and benefits of the procedure and the sedation options and risks were discussed with the patient. All questions were answered, and informed consent was obtained. Prior Anticoagulants: The patient has taken no previous anticoagulant or antiplatelet agents. ASA Grade Assessment: II - A patient with mild systemic disease. After reviewing the risks and benefits, the patient was deemed in satisfactory condition to undergo the procedure. After obtaining informed consent, the endoscope was passed under direct vision. Throughout the procedure, the patient's blood pressure, pulse, and oxygen saturations were monitored continuously. The gastroscope was introduced through the mouth, and advanced to the second part of duodenum. The upper GI endoscopy was accomplished without difficulty. The patient tolerated the procedure well. Scope In: 7:10:32 AM Scope Out: 7:16:35 AM Total Procedure Duration Time 0 hours 6 minutes 3 seconds Findings: LA Grade A (one or more mucosal breaks less than 5 mm, not extending between tops of 2 mucosal folds) esophagitis with no bleeding was found 38 cm from the incisors. Biopsies were taken with a cold forceps for histology. The mid esophagus was normal. Biopsies were taken with a cold forceps for histology. A medium-sized hiatal hernia was present. Diffuse mildly erythematous mucosa without bleeding was found in the gastric antrum. Biopsies were taken with a cold forceps for histology. A large amount of food (residue) was found in the gastric body. The examined duodenum was normal. Biopsies were taken with a cold forceps for histology. Impression: - LA Grade A reflux esophagitis. Biopsied. - Normal mid esophagus. Biopsied. - Medium-sized hiatal hernia. - Erythematous mucosa in the antrum. Biopsied. - A large amount of food (residue) in the stomach. - Normal examined duodenum. Biopsied. Recommendation: - Discharge patient to home. - Resume previous diet. - Continue present medications. - Telephone my office for pathology results in 1 week. - Do a gastric emptying study in 1 week. Procedure Code(s): --- Professional --- 15325, Esophagogastroduodenoscopy, flexible, transoral; with biopsy, single or multiple Diagnosis Code(s): --- Professional --- K21.0, Gastro-esophageal reflux disease with esophagitis K44.9, Diaphragmatic hernia without obstruction or gangrene K31.89, Other diseases of stomach and duodenum CPT copyright 2017 [employer]. All rights reserved. The codes documented in this report are preliminary and upon associate research scientist review may be revised to meet current compliance requirements. Chris Biswas MD 08/24/2020 7:26:11 AM This report has been signed electronically. Number of Addenda: 0 Note Initiated On: 08/24/2020 6:44 AM
--- NOTE | 2020-08-24 07:27 | OP.CCLET_ITS ---
08/24/2020 Kendy Modi [address] [place] [address] Re : Upper GI endoscopy procedure for Yony Adithya Dear Dr. Modi This procedure was performed on Monday, August 24, 2020. My impressions and recommendations are as follows: Impressions : - LA Grade A reflux esophagitis. Biopsied. - Normal mid esophagus. Biopsied. - Medium-sized hiatal hernia. - Erythematous mucosa in the antrum. Biopsied. - A large amount of food (residue) in the stomach. - Normal examined duodenum. Biopsied. Recommendations : - Discharge patient to home. - Resume previous diet. - Continue present medications. - Telephone my office for pathology results in 1 week. - Do a gastric emptying study in 1 week. My findings are described in the full procedure note, which is enclosed. If I can be of further assistance, please feel free to contact me at Doctor phone number(s): Work: . Sincerely, Chris Biswas MD 08/24/2020 7:26:11 AM This report has been signed electronically.
== END 2020-08-24 08:10 | disposition home or self-care (01) ==
LOC: EN 06:18 → AC 06:45
PROVIDERS: PCP Family Medicine; Referring Provider Family Medicine; Visit Provider Surgery
PROC: 0DJ08ZZ Inspection of Upper Intestinal Tract, Via Natural or Artificial Opening Endoscopic (ICD-10-PCS; CPT 43235; principal; 2020-08-24 07:10)
DX: K29.50 Unspecified chronic gastritis without bleeding (principal); K44.9 Diaphragmatic hernia without obstruction or gangrene; R13.10 Dysphagia, unspecified; K21.00 Gastro-esophageal reflux disease with esophagitis, without bleeding; K31.89 Other diseases of stomach and duodenum; Z20.822 Contact with and (suspected) exposure to COVID-19; E11.40 Type 2 diabetes mellitus with diabetic neuropathy, unspecified; E11.51 Type 2 diabetes mellitus with diabetic peripheral angiopathy without gangrene; I25.708 Atherosclerosis of coronary artery bypass graft(s), unspecified, with other forms of angina pectoris; I10 Essential (primary) hypertension; E78.5 Hyperlipidemia, unspecified; G47.33 Obstructive sleep apnea (adult) (pediatric); F32.9 Major depressive disorder, single episode, unspecified; F41.9 Anxiety disorder, unspecified; Z79.82 Long term (current) use of aspirin; Z79.4 Long term (current) use of insulin; Z79.02 Long term (current) use of 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/antiplatelets; Z79.899 Other long term (current) drug therapy; Z93.3 Colostomy status; I25.2 Old myocardial infarction; Z85.048 Personal history of other malignant neoplasm of rectum, rectosigmoid junction, and anus; Z86.73 Personal history of transient ischemic attack (TIA), and cerebral infarction without residual deficits; Z95.1 Presence of aortocoronary bypass graft; Z95.5 Presence of coronary angioplasty implant and graft
CPT/HCPCS: 43239; 82962; 87426; 88305; 88342; C9803; J7120; J2405

== ENCOUNTER → 2020-09-03 10:01 | Outpatient (CLI) | payer BC, SELFPAY ==
[2020-08-24 06:30] VITALS: BMI 22.8
--- NOTE | 2020-09-03 10:02 | NM_ITS ---
CLINICAL: 64-year-old diabetic male with history of clinical gastroparesis. SEMI-SOLID PHASE 99m Tc SULFUR COLLOID GASTRIC EMPTYING STUDY COMPARISON: None available FINDINGS: The patient was administered approximately 1.0 mCi of 99m Tc sulfur colloid mixed with oatmeal and consumed per os. Image acquisitions in the anterior-posterior projections were obtained for a total of 60 minutes. There is prompt visualization of the stomach. There is no gastroesophageal reflux identified. First order kinetics are maintained throughout the duration of the acquisitions. The T ? linear fit was calculated to be 94.77 minutes, (Normal: 12-56 minutes). NM/Gastric Emptying Study IMPRESSION: 1. ABNORMAL 99m Tc sulfur colloid semi-solid phase (oatmeal) gastric emptying imaging examination. A. There is delayed semi-solid phase gastric emptying compared to normal controls. (Jefferson et al, J Nucl Med Tech 38: 186, 2010). Electronically Signed: Flash Gimenez DO at 22:22 EST Tel , Service support ,
== END ==
LOC: NM 10:01
PROVIDERS: PCP Family Medicine; Referring Provider Surgery; Visit Provider Surgery
DX: E11.43 Type 2 diabetes mellitus with diabetic autonomic (poly)neuropathy (principal); K31.84 Gastroparesis
CPT/HCPCS: 78264; A9541

== ENCOUNTER → 2020-11-17 14:28 | Outpatient (CLI) | payer BC, SELFPAY ==
[2020-08-24 06:30] VITALS: BMI 22.8
[2020-11-17 18:29] LABS: AST(SGOT) 22 U/L (15-37); Alanine Aminotransfer ALT/SGPT 31 U/L (16-61); Albumin, Serum 3.7 g/dL (3.2-5.0); Alkaline Phosphatase 110 U/L (45-117); Anion Gap 5 (5-15); BUN 18 mg/dL (7-18); BUN/Creat Ratio 16.2 RATIO (10-20); Bilirubin, Direct 0.08 mg/dL (0.00-0.30); Calcium,Total 9.2 mg/dL (8.5-10.1); Chloride 99 mmol/L (98-107); Cholesterol 189 mg/dL (200); Creatinine, Serum 1.11 mg/dL (0.70-1.30); EST Glomerular Filtration Rate 71 mL/min (>60); Est Glom Filt Rate - Afr Amer 86 mL/min (>60); Globulin 4.1 g/dL (2.2-4.2); Glucose 190 mg/dL (74-106); High Density Lipoprotein 37 mg/dL; Potassium 4.5 mmol/L (3.5-5.1); Protein, Total 7.8 g/dL (6.4-8.2); Sodium Level 135 mmol/L (136-145); Thyroid Stim Hormone (TSH) 2.54 uIU/mL (0.358-3.74); Triglycerides 233 mg/dL; Very Low Density Lipoprotein 47 mg/dL (5-40)
== END ==
PROVIDERS: PCP Family Medicine; Referring Provider Family Medicine; Visit Provider Family Medicine
DX: E11.9 Type 2 diabetes mellitus without complications (principal)
CPT/HCPCS: 36415; 80048; 80061; 80076; 84443

== ENCOUNTER → 2020-12-29 06:46 | Outpatient (CLI) | payer BC, SELFPAY ==
[2020-12-17 13:32] VITALS: BMI 23.4
--- NOTE | 2020-12-29 06:48 | ECHOD_ITS ---
Reason For Study: Isch CMP Procedure This was a 2D Doppler, Color Flow transthoracic echocardiogram. Myocardial strain analysis was performed in this exam to aid in the assessment of cardiac function. The study was technically difficult. Exam performed in department. Left Ventricle Normal LV size. Moderate concentric left ventricular hypertrophy. Sigmoid septum. Left ventricular systolic function is normal. The estimated ejection fraction is 70 %. The global longitudinal strain = -20 % (normal). Diastolic function is indeterminate. No regional wall motion abnormalities noted. Right Ventricle Normal RV size. Normal systolic function. Atria Normal left atrium. Normal right atrium. No doppler evidence for ASD. Mitral Valve There is no mitral annular calcification. Mild diffuse mitral valve thickening. Mild focal mitral valve calcification of the anterior leaflet. Mild (1+) mitral valve insufficiency. Tricuspid Valve Normal tricuspid valve. Trivial tricuspid valve insufficiency. Unable to estimate RV systolic pressure/pulmonary artery pressure due to technically difficult study. Aortic Valve Trisinus/trileaflet aortic valve. Mild diffuse aortic valve thickening. Mild focal aortic valve calcification. Aortic valve sclerosis/mild aortic valve stenosis. Pulmonic Valve Normal pulmonic valve. Trivial pulmonic valve insufficiency. Great Vessels Normal sized aortic root. Pericardium/Pleural No pericardial effusion. MMode/2D Measurements & Calculations LVIDd: 2.7 cm IVSd: 1.5 cm LVOT diam: 2.0 cm LVIDs: 1.9 cm LVPWd: 1.5 cm LVOT area: 3.2 cm2 FS: 30.4 % Ao root diam: 3.4 cm LAV(MOD-bp): 35.3 ml LA A4 area: 13.7 cm2 LA dimension: 3.8 cm LAV(MOD-bp) Indexed: 20.0 ml/m2 LAV(MOD-sp2): 37.1 ml LAV(MOD-sp4): 32.5 ml RA A4 area: 9.1 cm2 Time Measurements MV dec time: 0.26 sec Doppler Measurements & Calculations MV E max paul: 97.2 cm/sec Lat Peak E' Paul: 12.5 cm/sec Med Peak E' Paul: 4.6 cm/sec MV A max paul: 123.0 cm/sec E/E' lat: 7.8 E/E' med: 21.2 MV E/A: 0.79 MV V2 max: 135.8 cm/sec MV P1/2t max paul: 104.0 cm/sec Ao V2 max: 133.6 cm/sec MV max P.4 mmHg MV P1/2t: 82.9 msec Ao max P.1 mmHg MV V2 mean: 84.3 cm/sec MV dec slope: 367.5 cm/sec2 JOYCE(V,D): 2.3 cm2 MV mean P.1 mmHg MV V2 VTI: 29.9 cm MVA(P1/2t): 2.7 cm2 LV V1 max: 95.4 cm/sec PA V2 max: 141.6 cm/sec LV V1 max P.6 mmHg ECHO/Echo Complete Interpretation Summary The study was technically difficult. Left ventricular systolic function is normal. The estimated ejection fraction is 70 %. The global longitudinal strain = -20 % (normal). Moderate concentric left ventricular hypertrophy. Sigmoid septum. Mild diffuse mitral valve thickening. Mild focal mitral valve calcification of the anterior leaflet. Mild (1+) mitral valve insufficiency. Trivial tricuspid valve insufficiency. Aortic valve sclerosis/mild aortic valve stenosis. Trivial pulmonic valve insufficiency. Unable to estimate RV systolic pressure/pulmonary artery pressure due to techni carlene difficult study. Diastolic function is indeterminate. Ordering Physician: Dwayne Gee Referring Physician: Kendy Modi M.D. Performed By: Lokesh Alvarez RCS
--- NOTE | 2020-12-29 12:38 | STRESSREP_ITS ---
Stress Test Report Date: 07-31-2021 Procedure: Pharmacologic stress nuclear imaging study Indications: CAD; PCI; ischemic mediated cardiomyopathy; peripheral arterial disease Consent: Per the patient Procedure: The patient underwent pharmacologic (Regadenoson 0.4mg ) evaluation with a peak heart rate of 93 beats per minute (59%predicted maximal heart rate) and a peak blood pressure of 138/80 mmHg. The baseline ECG demonstrated sinus rhythm. The peak pharmacologic ECG demonstrated no obvious ECG changes. There were no cardiac dysrhythmias pretest, during pharmacologic infusion, or recovery. There was no complaint of chest discomfort during pharmacologic infusion or recovery. The examination was discontinued secondary to completion of protocol. Impression: 1. Pharmacologic (Regadenoson) evaluation 2. Peak pharmacologic ECG with no obvious ECG changes. 3. There were no cardiac dysrhythmias pretest, during pharmacologic infusion, or recovery. 4. Nuclear images pending Myocardial perfusion imaging study: Technique: The patient was injected with 11.1 millicuries of technetium 99m Cardiolite and subsequently rest SPECT Cardiolite nuclear imaging was obtained in the horizontal long, vertical long, and short axis views. The patient underwent pharmacologic (Regadenoson) evaluation with a peak heart rate of 93 beats per minute (59% percent predicted maximal heart rate) and a peak blood pressure of 138/80 mmHg. The patient was injected with 33.4 millicuries of technetium 99m Cardiolite and subsequently stress SPECT Cardiolite nuclear imaging was obtained in the horizontal long, vertical long, and short axis views. A gated Cardiolite study at peak stress was obtained. Interpretation: Rest and stress SPECT Cardiolite nuclear imaging status post realignment, normalization, and attenuation correction demonstrate relative uniform tracer uptake and myocardial perfusion appearing within normal limits. There is end systolic thickening and brightening. The gated Cardiolite study demonstrates myocardial thickening and inward wall motion. The reported LVEF is 54%. Impression: 1. Rest and stress SPECT Cardiolite nuclear imaging demonstrate relative uniform tracer uptake and myocardial perfusion appearing within normal limits. 2. The gated Cardiolite study reports an LVEF of 54%. This note was generated with [employer] software. It may contain incorrect words, spelling, and punctuation that were not noted in checking the note before signing.
== END ==
PROVIDERS: PCP Family Medicine; Referring Provider Internal Medicine Cardiovascular Disease; Visit Provider Internal Medicine Cardiovascular Disease
DX: I25.5 Ischemic cardiomyopathy (principal); I25.798 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; I10 Essential (primary) hypertension; E78.5 Hyperlipidemia, unspecified; I77.9 Disorder of arteries and arterioles, unspecified; Z95.5 Presence of coronary angioplasty implant and graft; Z95.1 Presence of aortocoronary bypass graft
CPT/HCPCS: 78452; 93017; 93306; A9500; A4216; J2785

== ENCOUNTER 2021-01-29 17:21 | Emergency (ER) | payer BC, SELFPAY ==
[2020-12-17 13:32] VITALS: BMI 23.4
[2021-01-29 17:22] VITALS: BP 104/59; PULSE 94; RESP 15; TEMP 36; O2SAT 97; BMI 22.7
--- NOTE | 2021-01-29 17:27 | CT_ITS ---
STUDY: CT BRAIN WITHOUT CONTRAST REASON FOR EXAM: Male, 65 years old. Injury. RADIATION DOSAGE (If Supplied By Facility): CTDIvol = ( 44.99 ) mGy, DLP = ( 863.60 ) mGycm TECHNIQUE: Transaxial CT imaging of the brain was performed without administration of intravenous contrast material. Individualized dose optimization techniques were used for this CT. COMPARISON: 03/20/2019. FINDINGS: Normal soft tissue structures. Normal calvarium. Normal size ventricles and extra-axial spaces for the patient''s age. There are areas of decreased attenuation within the white matter tracts of the supratentorial brain, consistent with microvascular disease changes. Remote lacunar infarct in the head of the right caudate nucleus. Remote lacunar infarct in the right basal ganglia. Normal left basal ganglia and bilateral thalami. Normal brainstem. Normal cerebellum. There is no intracranial hemorrhage. There are no findings of an acute ischemic infarction. Normal visualized paranasal sinuses. CT/Brain/Head without Contrast IMPRESSION: Chronic involutional changes without evidence of acute intracranial or calvarial abnormality. There is no major interval change. Electronically Signed: Lico Capone DO at 18:49 EDT Tel [phone], Service support ,
--- NOTE | 2021-01-29 17:29 | CT_ITS ---
STUDY: CT CERVICAL SPINE WITHOUT CONTRAST REASON FOR EXAM: Male, 65 years old. Fall. RADIATION DOSAGE (If Supplied By Facility): CTDIvol = ( 23.71 ) mGy, DLP = ( 448.54 ) mGycm TECHNIQUE: High resolution transaxial imaging was performed without contrast material. Sagittal and coronal images were reconstructed. Individualized dose optimization techniques were used for this CT. COMPARISON: CTA of the neck, 03/21/2016. MRI cervical spine, 03/11/2015. FINDINGS: Normal craniovertebral junction. There are degenerative changes of the anterior atlantoaxial articulation. Normal odontoid process. Normal cervical lordosis. Normal vertebral bodies and posterior osseous elements. C2-3: Normal endplates. Normal disc height and morphology. Facet joint degenerative change. Normal central canal. Minimal narrowing of the left intervertebral neuroforamen. C3-4: Normal endplates. Normal disc height and morphology. Facet joint degenerative change. Normal central canal. Narrowing of bilateral intervertebral neuroforamina, left greater than right. C4-5: Normal endplates. Normal disc height and morphology. Facet joint degenerative change. Normal central canal. Mild narrowing of the right intervertebral neuroforamen. C5-6: Endplate spondylosis Normal disc height and morphology. Facet joint degenerative change. Normal central canal and intervertebral neuroforamina. C6-7: Endplate spondylosis Normal disc height and morphology. Facet joint degenerative change. Normal central canal and intervertebral neuroforamina. C7-T1: Normal endplates. Normal disc height and morphology. Facet joint degenerative change. Normal central canal and intervertebral neuroforamina. Normal visualized soft tissue structures. CT/Spine Cervical without Contras IMPRESSION: Stable degenerative changes of the cervical spine. There is no acute fracture or subluxation. Note: MRI is more sensitive than CT in detecting cord injury, ligamentous injury and epidural hematoma. If there is continued clinical concern for any of these entities, MRI should be considered. Electronically Signed: Lico Capone DO at 18:52 EDT Tel [phone], Service support ,
--- NOTE | 2021-01-29 17:29 | RAD_ITS ---
STUDY: X-RAY - LEFT SHOULDER REASON FOR EXAM: Male, 65 years old. Injury. Fall this morning. TECHNIQUE: 2 view(s) of the shoulder. COMPARISON: None. FINDINGS: Normal glenohumeral articulation. There is degenerative arthrosis of the acromioclavicular joint without inferior osseous spur formation. Normal acromion. There is a fracture of the humeral neck with displacement of the greater tuberosity and impaction of the shaft into the fracture site. The soft tissue structures are unremarkable. Normal visualized pulmonary apex. RAD/Shoulder min 2 Views IMPRESSION: Impacted fracture of the left humeral neck. There is no dislocation. Electronically Signed: Lico Capone DO at 18:54 EDT Tel [phone], Service support ,
--- NOTE | 2021-01-29 18:30 | EDS_ITS ---
HPI HPI - Fall History of Present Illness Chief Complaint: Fall Narrative Narrative: 65-year-old male who ambulates with a walker presents after a fall backwards in the bathroom at about 11:00 AM. He states he did not lose consciousness. He has had pain in the left shoulder since then. He also complains of headache. He did not lose consciousness. He is not on blood thinners. He states he is having difficulty getting around because of his shoulder pain. He admits to nausea as well. Patient states that he typically has balance issues and this is why he uses a walker. 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 Carotid artery disease Colorectal cancer CVA (cerebral vascular accident) Diabetic neuropathy Dyslipidemia Dysphagia GERD (gastroesophageal reflux disease) HTN (hypertension) invasive rectal adenocarcinoma Obstructive sleep apnea ALEJANDRO (obstructive sleep apnea) Peripheral vascular occlusive disease Restrictive lung disease Type 2 diabetes mellitus Home Medications aspirin 81 mg PO DAILY 03/20/16 [History Last Taken 01/08/20] duloxetine 60 mg PO DAILY 03/20/16 [History Last Taken 01/08/20] insulin lispro 100 unit/mL subcutaneous pen See Rx Instructions SC .COMPLEX #60 ml 04/02/18 [Rx Last Taken 01/08/20] ascorbic acid (vitamin C) 500 mg PO DAILY 01/09/20 [History Last Taken 01/08/20] omeprazole 40 mg PO DAILY 01/09/20 [History Last Taken 01/08/20] rosuvastatin 20 mg tablet 20 mg PO QHS #90 tab 02/21/20 [Rx Last Taken Unknown] cholecalciferol (vitamin D3) 50 mcg (2,000 unit) tablet 50 mcg PO DAILY 12/17/20 [History Last Taken Unknown] fluticasone propionate 50 mcg/actuation nasal spray,suspension 1 spray INTRANASAL DAILY 12/17/20 [History Last Taken Unknown] gabapentin 300 mg capsule 300 mg PO DAILY 12/17/20 [History Last Taken Unknown] insulin detemir U-100 100 unit/mL (3 mL) subcutaneous pen 50 unit SC BID ml 12/17/20 [History Last Taken Unknown] lisinopril 2.5 mg tablet 2.5 mg PO DAILY 12/17/20 [History Last Taken Unknown] oxycodone-acetaminophen [Endocet] 1 tab PO Q6H PRN 3 Days #12 tab 01/29/21 [Rx Last Taken Unknown] Allergy/AdvReac Type Severity Reaction Status Date / Time No Known Allergies Allergy Verified 01/29/21 17:24 Family History Father CAD (coronary artery disease) Hypertension Cancer leukemia Diabetes Heart disease High cholesterol Mother CVA (cerebral vascular accident) Diabetes Breast cancer Brother Diabetes Surgical History Excision Max.Zygoma Face Tumor H/O coronary artery bypass surgery (05/30/08) History of coronary artery stent placement (01/02/15) History of herniorrhaphy History of right-sided carotid endarterectomy History of tonsillectomy PTCA Left Anterior Tibial and Paroneal Artery Social History Smoking Status: Never smoker alcohol intake: never substance use type: does not use caffeine: Yes what type of physical activity do you participate in: none ROS ROS ED Constitutional Constitutional ED: Denies fever(s) or subjective Eyes Eyes: Denies change in vision ENT ENT ED: Denies ear pain or rhinorrhea Cardiovascular Cardiovascular: Denies chest pain or palpitations Respiratory/Chest Respiratory/Chest: Denies cough or dyspnea Gastrointestinal Gastrointestinal: Reports nausea; Denies abdominal pain or vomiting Genitourinary Genitourinary ED: Denies dysuria or hematuria Musculoskeletal Musculoskeletal: Reports other Details: Left shoulder pain Integumentary Denies abscess or rash Neurologic Neurologic: Reports headache(s); Denies paresthesias Psychiatric Psychiatric: Denies anxiety or depression EXAM Physical Exam Const Vital Signs: 01/29/21 17:22 01/29/21 18:51 Temperature 96.8 F L Temperature Source Temporal Pulse Rate 94 Respiratory Rate 15 Respiratory Effort Normal Non-Labored Respiratory Depth Normal Respiratory Pattern Normal Blood Pressure 104/59 L Blood Pressure Mean 74 Pulse Ox 97 Oxygen Delivery Method Room Air Room Air Positive well nourished General Appearance ED: NAD HEENT Reports normocephalic atraumatic Eyes PERRL and EOMs intact bilaterally Neck full ROM Neck Narrative: No midline spinal deformity or step-off. Resp normal respiratory effort and clear to auscultation bilaterally Cardio regular rate and regular rhythm Extremity Extremity Narrative: There is tenderness to palpation over the left shoulder and proximal humerus. There is swelling here. Limited range of motion. Sensation is intact. Right Upper Extremity: shoulder joint Psych mental status grossly normal Skin Lesions: no lesions Rashes: no rashes MDM MDM MDM Narrative Medical decision making narrative: Patient presents after a fall backwards hitting his head. He has no focal neurologic deficits on exam. He states he is chronically dizzy and this is why he fell. He has no lacerations or abrasions. He does pain of left shoulder pain and difficulty moving his left arm. He does walk with a walker at home. CT of the brain and cervical spine is interpreted by the radiologist showed no acute intracranial injury or cervical spine injury. Left shoulder x-ray shows impacted fracture left humeral neck as interpreted by myself. I had a long discussion with the patient about his ability to use a walker at home with a proximal humerus fracture while wearing a sling. After much discussion with his and him they want to go home and their daughter will help them. Patient was given pain medication for home. He stable for discharge. Impression: 1. Mechanical fall 2. Closed head injury 3. Impacted fracture of the left humeral neck Radiography Diagnostic Testing: Radiology Impression Brain CT 01/29/21 17:27 IMPRESSION: Chronic involutional changes without evidence of acute intracranial or calvarial abnormality. There is no major interval change. Electronically Signed: Lico Capone DO at 18:49 EDT Tel [phone], Service support , Cervical Spine CT 01/29/21 17:29 IMPRESSION: Stable degenerative changes of the cervical spine. There is no acute fracture or subluxation. Note: MRI is more sensitive than CT in detecting cord injury, ligamentous injury and epidural hematoma. If there is continued clinical concern for any of these entities, MRI should be considered. Electronically Signed: Lico Capone DO at 18:52 EDT Tel [phone], Service support , Shoulder X-Ray 01/29/21 17:29 IMPRESSION: Impacted fracture of the left humeral neck. There is no dislocation. Electronically Signed: Lico Capone DO at 18:54 EDT Tel [phone], Service support , Discharge Plan Triage Chief Complaint: Fall ED Provider: Leroy Donald Dx/Rx/DC Orders Instructions: ED Head Injury (Adult), ED Fracture, Shoulder Prescriptions: New oxycodone-acetaminophen [Endocet] 5-325 mg tablet 1 tab PO Q6H PRN (Reason: pain) 3 Days Qty: 12 RF: 0 No Action insulin lispro [Humalog KwikPen Insulin] 100 unit/mL insulin pen See Rx Instructions SC .COMPLEX Qty: 60 RF: 3 lisinopril 2.5 mg tablet 2.5 mg PO DAILY RF: 0 gabapentin 300 mg capsule 300 mg PO DAILY RF: 0 cholecalciferol (vitamin D3) 50 mcg (2,000 unit) tablet 50 mcg PO DAILY RF: 0 fluticasone propionate [Flonase Allergy Relief] 50 mcg/actuation spray,suspension 1 spray intranasal DAILY RF: 0 aspirin 81 MG tablet,chewable 81 mg PO DAILY RF: 0 duloxetine 60 MG capsule,delayed release(DR/EC) 60 mg PO DAILY RF: 0 insulin detemir U-100 100 unit/mL (3 mL) insulin pen 50 unit SC BID RF: 0 omeprazole 40 MG capsule,delayed release(DR/EC) 40 mg PO DAILY RF: 0 ascorbic acid (vitamin C) 500 MG capsule 500 mg PO DAILY RF: 0 rosuvastatin 20 mg tablet 20 mg PO QHS Qty: 90 RF: 3 Primary Care Provider: Kendy Modi Referrals: Kendy Modi MD [Primary Care Provider] - Sathish Bacon MD [STAFF PHYSICIAN] - As soon as possible Disposition Disposition: Home, Self Care Discharge Date/Time: 01/29/21 19:59
[2021-01-29] MEDS: Ondansetron ODT 4 MG Tablet PO (18:50)
[2021-01-29] MEDS: oxyCODONE 5 MG Tablet PO (19:17)
== END 2021-01-29 19:59 | disposition home or self-care (01) ==
PROVIDERS: Emergency Provider Student in an Organized Health Care Education/Training Program; PCP Family Medicine
DX: S42.292A Other displaced fracture of upper end of left humerus, initial encounter for closed fracture (principal); S09.90XA Unspecified injury of head, initial encounter; W19.XXXA Unspecified fall, initial encounter; Y93.9 Activity, unspecified; Y92.9 Unspecified place or not applicable; Y99.9 Unspecified external cause status; I25.708 Atherosclerosis of coronary artery bypass graft(s), unspecified, with other forms of angina pectoris; J98.4 Other disorders of lung; E11.40 Type 2 diabetes mellitus with diabetic neuropathy, unspecified; I10 Essential (primary) hypertension; E78.5 Hyperlipidemia, unspecified; R13.10 Dysphagia, unspecified; G47.33 Obstructive sleep apnea (adult) (pediatric); K21.9 Gastro-esophageal reflux disease without esophagitis; F41.9 Anxiety disorder, unspecified; Z79.82 Long term (current) use of aspirin; Z79.4 Long term (current) use of insulin; Z85.038 Personal history of other malignant neoplasm of large intestine; Z86.73 Personal history of transient ischemic attack (TIA), and cerebral infarction without residual deficits; Z95.1 Presence of aortocoronary bypass graft
CPT/HCPCS: 70450; 72125; 73030; 99283

== ENCOUNTER 2021-09-07 09:38 | Day surgery (SDC) | payer BC, SELFPAY ==
[2021-09-07] VITALS (15 sets, daily range): BP systolic 69–152; BP diastolic 49–80; PULSE 75–89; RESP 12–20; TEMP 36.6–37.6; O2SAT 92–98; BMI 23.4
--- NOTE | 2021-09-07 09:47 | PCM.HP.BLA ---
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: No Accompanied by: Unknown Is patient in pain?: No Allergies No Known Allergies Allergy (Verified 07/23/21 14:07) Medications aspirin 81 mg PO DAILY 03/20/16 [History Confirmed 07/23/21] duloxetine 60 mg PO DAILY 03/20/16 [History Confirmed 07/23/21] insulin lispro 100 unit/mL subcutaneous pen See Rx Instructions SC .COMPLEX #60 ml 04/02/18 [Rx Confirmed 07/23/21] ascorbic acid (vitamin C) 500 mg PO DAILY 01/09/20 [History Confirmed 07/23/21] omeprazole 40 mg PO DAILY 01/09/20 [History Confirmed 07/23/21] cholecalciferol (vitamin D3) 50 mcg (2,000 unit) tablet 50 mcg PO DAILY 12/17/20 [History Confirmed 07/23/21] fluticasone propionate 50 mcg/actuation nasal spray,suspension 1 spray INTRANASAL DAILY 12/17/20 [History Confirmed 07/23/21] gabapentin 300 mg capsule 300 mg PO DAILY 12/17/20 [History Confirmed 07/23/21] insulin detemir U-100 100 unit/mL (3 mL) subcutaneous pen 50 unit SC BID ml 12/17/20 [History Confirmed 07/23/21] lisinopril 2.5 mg tablet 2.5 mg PO DAILY 12/17/20 [History Confirmed 07/23/21] rosuvastatin 20 mg tablet 20 mg PO QHS #90 tab 02/23/21 [Rx Confirmed 07/23/21] multivitamin 1 tab PO DAILY 06/22/21 [History Confirmed 07/23/21] [facility] Medical History Anxiety disorder 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 Carotid artery disease Colorectal cancer CVA (cerebral vascular accident) Diabetic neuropathy Dyslipidemia Dysphagia GERD (gastroesophageal reflux disease) HTN (hypertension) invasive rectal adenocarcinoma Obstructive sleep apnea ALEJANDRO (obstructive sleep apnea) Peripheral vascular occlusive disease Restrictive lung disease Type 2 diabetes mellitus Surgical History Excision Max.Zygoma Face Tumor H/O coronary artery bypass surgery (05/30/08) History of coronary artery stent placement (01/02/15) History of herniorrhaphy History of right-sided carotid endarterectomy History of tonsillectomy PTCA Left Anterior Tibial and Paroneal Artery Family History Father CAD (coronary artery disease) Hypertension Cancer leukemia Diabetes Heart disease High cholesterol Mother CVA (cerebral vascular accident) Diabetes Breast cancer Brother Diabetes Social History Smoking Status: Never smoker alcohol intake: never substance use type: does not use caffeine: Yes what type of physical activity do you participate in: none HPI HPI HPI: MITCH VEGA, is a 65 M who presents to the office today for surgical follow-up of rectal cancer. It is of note that I assisted him with a esophagogastroduodenoscopy on August 24, 2020. This demonstrated low-grade reflux esophagitis with a medium size hiatal hernia. There was at that time a large amount of food residue in the stomach. Dr. Dillard assisted with diagnosing him with rectal cancer May 05, 2019. He then underwent neoadjuvant chemotherapy. Oncologist is Dr. Dwayne Leonardo. I have previously placed and removed a port for him to facilitate his treatment. He has recently been seen by his colorectal surgeon. It is noted the patient has a significant parastomal hernia and intussusception of his colon and his permanent left lower quadrant colostomy. He has been cleared from any further surgical evaluation however. It was not recommended to him that he pursue surgical repair of this area. ROS General General: Yes fatigue and colon cancer; No weight change, appetite, breast cancer or weakness HEENT HEENT: Yes eye surgery; No difficulty swallowing, eye injury, swollen glands or hoarseness Endo Endocrine: Yes diabetes mellitus; No thyroid disease, thyroid cancer, Hair loss, heat intolerance or cold intolerance Skin Skin: No rash or changing moles Breast Breast: No left breast lump, right breast lump, nipple discharge, breast pain, abnormal mammogram, abnormal US or breast enlargement Musc Musculoskeletal: Yes back problems; No arthritis, rheumatoid arthritis, gout or joint pain Cardio Cardiovascular: Yes heart disease, high blood pressure, heart attack and heart stent; No murmur, pacemaker, atrial fibrillation, palpitations, shortness of breat with exertion or chest pain Psych Psychiatric: Yes depression and anxiety; No hearing voices Resp Respiratory: No shortness of breath, Yes sleep apnea, No cough, No COPD, No asthma, No emphysema and No wheezing Gastro Gastrointestinal: No abdominal pain, No nausea or vomiting, No diarrhea, No constipation, No blood in stool, Yes acid reflux, No hemorrhoids, No ulcers, No gallbladder problem and No black,tarry stools Jhony Hematologic: Yes blood thinners, No blood disorders, No bleeding, No anemia and No blood clots Neuro Neurologic: No system reviewed and no additional complaints, except as documented, No as per HPI, No abnormal gait, No abnormal hearing, No abnormal movements, No abnormal speech, No behavioral changes, No burning sensations, No confusion, No convulsions, No disequilibrium, No dizziness, No localized weakness, No frequent falls, No headache(s), No lack of coordination, No loss of vision, No memory loss, Yes numbness, No other visual disturbances, No radicular pain, No restless legs, No sensory deficit, No syncope, Yes tingling, No tremor(s), No weakness and No other (TIA) Exam Const General: cooperative and comfortable Nutritional Appearance: average body habitus Other: Patient is unsteady on his feet. Neuropathy. HENMT Head: normal to inspection Chest Other: Increased anterior posterior diameter, kyphosis noted Well-healed median sternotomy incision Resp Auscultation: clear to auscultation bilaterally Other: Reasonable respiratory excursion Cardio Rate: regular rate Rhythm: regular rhythm GI Palpation: soft and no hepatosplenomegaly Auscultation: normal bowel sounds Other: Left lower quadrant stoma with peristomal weakness and intussusception of the colon protruding in the stomal bag, reducible with the patient supine Abdomen otherwise soft and nontender Musc Cervical Spine: normal cervical lordosis Neuro Other: Unsteady balance and unsteady gait. The patient however is neurologically intact and of normal cognition Extrem Other: Lower extremities demonstrate significant atrophy of musculature, no edema, no calf tenderness Psych Appearance: grossly normal Assessment and Plan Assessment and Plan (1) Colorectal cancer: Status: Acute (2) Parastomal hernia: Status: Acute Qualifiers: Obstruction and gangrene presence: without obstruction or gangrene Qualified Code(s): K43.5 - Parastomal hernia without obstruction or gangrene Plan - Dr. Chris Biswas MD: 65-year-old gentleman with history of rectal cancer. He is referred by Dr. Dwayne Leonardo for a surveillance colonoscopy. I have discussed technique, benefit, risk, alternatives. We will schedule procedure at his discretion. The patient's colorectal surgeon is aware that the patient has a significant parastomal hernia and intussusception of the colon. No surgical treatment is recommended at this time. In fact no further surgical follow-up was planned by colorectal at [facility]. I have cautioned the patient greatly that this can become a surgical emergency and he needs to keep track of this and make sure that it remains reduced. He has purchased a special belt but does not know how to cut or fashion it. We will see if we can get assistance from Ai Lomeli interstomal specialist at the [facility] to assist The patient has not been vaccinated to Covid-19. I have encouraged him with his risk factors to strongly consider this. We will schedule procedure at his discretion. I appreciate the opportunity of assisting with the surgical care. Copy: Dr. Dwayne Leonardo and Dr. Kendy Biswas M.D., F.A.C.S. I have re-examined the patient. There are no clinical changes since date of exam.
[2021-09-07] MEDS: Lactated Ringers 1,000 ML 15 ML IV (10:19)
[2021-09-07 10:46] LABS: Bedside Glucose 115 mg/dL (70-110)
--- NOTE | 2021-09-07 11:33 | OP.COLON_ITS ---
Patient Name: Yony Haji Procedure Date: 09/07/2021 11:08 AM Date of : 1955 Age: 65 Procedure: Colonoscopy Indications: High risk colon cancer surveillance: Personal history of colon cancer Providers: Chris Biswas MD Medicines: See the Anesthesia note for documentation of the administered medications Patient Profile: Last Colonoscopy: April 2019. Complications: No immediate complications. Procedure: Pre-Anesthesia Assessment: - Prior to the procedure, a History and Physical was performed, and patient medications and allergies were reviewed. The patient's tolerance of previous anesthesia was also reviewed. The risks and benefits of the procedure and the sedation options and risks were discussed with the patient. All questions were answered, and informed consent was obtained. Prior Anticoagulants: The patient has taken no previous anticoagulant or antiplatelet agents. ASA Grade Assessment: II - A patient with mild systemic disease. After reviewing the risks and benefits, the patient was deemed in satisfactory condition to undergo the procedure. After I obtained informed consent, the scope was passed under direct vision. Throughout the procedure, the patient's blood pressure, pulse, and oxygen saturations were monitored continuously. The colonoscope was introduced through the anus and advanced to the cecum, identified by appendiceal orifice and ileocecal valve. The colonoscopy was performed without difficulty. The patient tolerated the procedure well. The quality of the bowel preparation was fair. The ileocecal valve was photographed. Scope In: 11:16:27 AM Scope Withdrawal Time 0 hours 4 minutes 44 seconds Scope Out: 11:26:13 AM Total Procedure Duration Time 0 hours 9 minutes 46 seconds Findings: The colon (entire examined portion) appeared normal. Impression: - Preparation of the colon was fair. - The entire examined colon is normal. Colonoscopy per left lower quandrant end sigmoid colostomy Large para stomal hernia and bowel prolapse - No specimens collected. Recommendation: - Discharge patient to home. - Resume previous diet. - Continue present medications. - Repeat colonoscopy in 2 years for surveillance. Procedure Code(s): --- Professional --- 55988, Colonoscopy, flexible; diagnostic, including collection of specimen(s) by brushing or washing, when performed (separate procedure) Diagnosis Code(s): --- Professional --- Z85.038, Personal history of other malignant neoplasm of large intestine CPT copyright 2017 [employer]. All rights reserved. The codes documented in this report are preliminary and upon finish filer review may be revised to meet current compliance requirements. Chris Biswas MD 09/07/2021 11:32:33 AM This report has been signed electronically. Number of Addenda: 0 Note Initiated On: 09/07/2021 11:08 AM
--- NOTE | 2021-09-07 11:33 | OP.CCLET_ITS ---
09/07/2021 Dwayne Leonardo [address] [place] [address] Re : Colonoscopy procedure for Yony Haji Dear Dr. Leonardo This procedure was performed on Tuesday, September 07, 2021. My impressions and recommendations are as follows: Impressions : - Preparation of the colon was fair. - The entire examined colon is normal. Colonoscopy per left lower quandrant end sigmoid colostomy Large para stomal hernia and bowel prolapse - No specimens collected. Recommendations : - Discharge patient to home. - Resume previous diet. - Continue present medications. - Repeat colonoscopy in 2 years for surveillance. My findings are described in the full procedure note, which is enclosed. If I can be of further assistance, please feel free to contact me at Doctor phone number(s): Work: . Sincerely, Chris Biswas MD 09/07/2021 11:32:33 AM This report has been signed electronically.
[2021-09-07] MEDS: Lactated Ringers 1,000 ML 999 ML IV (13:01)
== END 2021-09-07 23:59 | disposition home or self-care (01) ==
LOC: EN 09:40 → AC 09:41
PROVIDERS: PCP Family Medicine; Referring Provider Family Medicine; Visit Provider Surgery
PROC: 0DJD8ZZ Inspection of Lower Intestinal Tract, Via Natural or Artificial Opening Endoscopic (ICD-10-PCS; CPT 45378; principal; 2021-09-07 10:40)
DX: Z12.11 Encounter for screening for malignant neoplasm of colon (principal); E11.51 Type 2 diabetes mellitus with diabetic peripheral angiopathy without gangrene; E11.40 Type 2 diabetes mellitus with diabetic neuropathy, unspecified; I25.708 Atherosclerosis of coronary artery bypass graft(s), unspecified, with other forms of angina pectoris; Z79.4 Long term (current) use of insulin; K43.5 Parastomal hernia without obstruction or gangrene; E78.5 Hyperlipidemia, unspecified; I10 Essential (primary) hypertension; Z92.21 Personal history of antineoplastic chemotherapy; Z79.82 Long term (current) use of aspirin; Z79.899 Other long term (current) drug therapy; F41.9 Anxiety disorder, unspecified; R13.10 Dysphagia, unspecified; K21.9 Gastro-esophageal reflux disease without esophagitis; G47.33 Obstructive sleep apnea (adult) (pediatric); Z95.1 Presence of aortocoronary bypass graft; Z95.5 Presence of coronary angioplasty implant and graft; Z85.038 Personal history of other malignant neoplasm of large intestine; I25.5 Ischemic cardiomyopathy
CPT/HCPCS: 45378; 82962; J7120; J2405

== ENCOUNTER 2021-09-23 10:14 | Emergency (ER) | payer BC, SELFPAY ==
[2021-09-23 10:15] VITALS: BP 207/87; PULSE 93; RESP 18; TEMP 36.8; O2SAT 95; BMI 24.7
--- NOTE | 2021-09-23 10:29 | EKG12_ITS ---
Test Reason : SOB Blood Pressure : / mmHG Vent. Rate : 094 BPM Atrial Rate : 094 BPM P-R Int : 142 ms QRS Dur : 090 ms QT Int : 376 ms P-R-T Axes : 060 039 075 degrees QTc Int : 470 ms Normal sinus rhythm Normal ECG Confirmed by FOUZIA MONTE, JOSE ([id number]), film or videotape editor RY AU ([id number]) on 09/29/2021 8:16:49 AM Referred By: Confirmed By:JOSE FRAGOSO MD
--- NOTE | 2021-09-23 10:29 | CT_ITS ---
STUDY: CT BRAIN WITHOUT CONTRAST REASON FOR EXAM: Male, 65 years old. Headache RADIATION DOSAGE (If Supplied By Facility): CTDIvol = ( 47.06 ) mGy, DLP = ( 943.26 ) mGycm TECHNIQUE: Transaxial CT imaging of the brain was performed without administration of intravenous contrast material. Individualized dose optimization techniques were used for this CT. COMPARISON: Comparison is made with prior study dated 01/29/2021. FINDINGS: Normal soft tissue structures. Normal calvarium. There is mild cerebral atrophy with widening of the extra-axial spaces and ventricular dilatation. There are areas of decreased attenuation within the white matter tracts of the supratentorial brain, consistent with microvascular disease changes. Stable small bilateral lacunar infarcts in the basal ganglion. Normal brainstem. There is mild cerebellar atrophy. There is no intracranial hemorrhage. There are no findings of an acute ischemic infarction. Atherosclerotic calcification of the vertebral arteries and cavernous portions of the internal carotid arteries bilaterally. Normal visualized paranasal sinuses. CT/Brain/Head without Contrast IMPRESSION: Chronic involutional changes of the brain. Electronically Signed: Navdeep Gonzales MD at 11:39 EST ,
--- NOTE | 2021-09-23 10:34 | RAD_ITS ---
STUDY: X-RAY CHEST REASON FOR EXAM: Male, 65 years old. Chest pain. Bilateral lower extremity weakness. TECHNIQUE: Single AP portable view of the chest. COMPARISON: Comparison is made with prior study dated 01/09/2020. FINDINGS: EKG electrodes are seen. Increased markings at the left lung base suggestive of a left basilar atelectasis/scarring. Blunting of the left costophrenic angle. This is unchanged. Sternal cerclage wires and vascular clips are present from a prior sternotomy and coronary artery bypass graft procedure (CABG). Normal mediastinum and ramses. Normal visualized pulmonary arteries. Normal visualized aortic arch and descending thoracic aorta. Normal visualized thoracic spine. Healed fracture of the proximal left humerus with deformity. There is no demonstrated abnormality of the visualized soft tissue structures of the upper abdomen. RAD/Chest 1 View (Portable) IMPRESSION: Mild increased markings at the left lung base suggestive of linear atelectasis and/or scarring with blunting of left costophrenic angle. Electronically Signed: Navdeep Gonzales MD at 11:38 EST ,
[2021-09-23 10:37] LABS: Absolute Lymphocyte Count 0.87 X10^3/uL (0.83-4.51); Absolute Neutrophil Count 4.9 X10^3/uL (2.0-7.7); Basophil# 0.01 X10^3/uL; Basophil% 0.2 % (0-1); Eosinophil# 0.09 X10^3/uL; Eosinophils% 1.4 % (0-5); Hematocrit 40.9 % (40-54); Hemoglobin 13.2 g/dL (13.0-16.5); Lymphocyte # 0.87 X10^3/ul (0.83-4.51); Lymphocyte % 13.7 % (19-41); Mean Corp Hgb Conc 32.3 g/dL (32-36); Mean Corpuscular Hgb 27.3 pg (27.0-32.0); Mean Corpuscular Volume 84.5 fL (80-94); Mean Platelet Vol. 9.4 fl (6.2-12.0); Monocyte# 0.51 X10^3/uL; NRBC Flagged by Analyzer 0 % (0-5); Neutrophil # 4.88 X10^3/uL (2.7-7.7); Neutrophil % 76.5 % (47-70); Platelet Count 256 K/mm3 (150-450); RBC Distribution Width CV 14.5 % (11.6-14.6); RBC Distribution Width SD 44.2 fl (35.1-43.9); Red Blood Count 4.84 M/mm3 (4.6-6.2); White Blood Count 6.4 K/mm3 (4.4-11.0)
--- NOTE | 2021-09-23 10:39 | EX.ED.DYSGE1 ---
HPI <VIVIAN Houston - Last Filed: 09/23/21 15:13> History of Present Illness Chief Complaint: Headache Narrative Narrative: 65-year-old male with PMH of HTN, HLD, DM2, CAD, colorectal cancer s/p colostomy, ALEJANDRO presents with headache and constellation of symptoms. 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 He also felt short of breath and has right-sided chest pain. He states he has had these headaches once every few weeks but they normally resolve within an hour but this one has not gone away. He denies head injury or falls. He denies vision changes or focal motor or sensory changes. No fever or neck pain. He was hypertensive here but states he took his lisinopril this morning. PFSH <VIVIAN [place] - Last Filed: 09/23/21 15:13> [facility] Medical History (Updated 09/23/21 @ 14:27 by VIVIAN Houston) Anxiety Anxiety disorder Arthritis 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 Cancer Cardiology follow-up encounter Carotid artery disease Colorectal cancer CPAP (continuous positive airway pressure) dependence CVA (cerebral vascular accident) Depression Diabetic neuropathy Dietary restriction Dyslipidemia Dysphagia Gastric reflux GERD (gastroesophageal reflux disease) High cholesterol History of echocardiogram History of heart attack History of pain when walking History of stress test HTN (hypertension) Injury of back Injury of head and neck 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 Leg cramps Loss of hearing Non-smoker Obstructive sleep apnea ALEJANDRO (obstructive sleep apnea) Peripheral vascular occlusive disease Restless legs Restrictive lung disease Shortness of breath on exertion Syncope Type 2 diabetes mellitus Walker as ambulation aid Wears glasses Home Medications aspirin 81 mg PO DAILY 03/20/16 [History Last Taken 09/23/21] duloxetine 60 mg PO DAILY 03/20/16 [History Last Taken 09/23/21] insulin lispro 100 unit/mL subcutaneous pen See Rx Instructions SC .COMPLEX #60 ml 04/02/18 [Rx Last Taken 09/22/21] omeprazole 40 mg PO DAILY 01/09/20 [History Last Taken 09/22/21] fluticasone propionate 50 mcg/actuation nasal spray,suspension 1 spray INTRANASAL DAILY 12/17/20 [History Last Taken 09/22/21] gabapentin 300 mg capsule 300 mg PO DAILY 12/17/20 [History Last Taken 09/23/21] insulin detemir U-100 100 unit/mL (3 mL) subcutaneous pen 50 unit SC BID ml 12/17/20 [History Last Taken 09/22/21] lisinopril 2.5 mg tablet 2.5 mg PO DAILY 12/17/20 [History Last Taken 09/23/21] rosuvastatin 20 mg tablet 20 mg PO QHS #90 tab 02/23/21 [Rx Last Taken 09/22/21] multivitamin 1 tab PO DAILY 06/22/21 [History Last Taken 09/23/21] amlodipine [Norvasc] 5 mg PO DAILY #30 tab 09/23/21 [Rx Last Taken Unknown] lisinopril 5 mg PO DAILY #30 tab 09/23/21 [Rx Last Taken Unknown] Allergy/AdvReac Type Severity Reaction Status Date / Time No Known Allergies Allergy Verified 09/23/21 10:15 Family History Father CAD (coronary artery disease) Hypertension Cancer leukemia Diabetes Heart disease High cholesterol Mother CVA (cerebral vascular accident) Diabetes Breast cancer Brother Diabetes Surgical History Excision Max.Zygoma Face Tumor H/O coronary artery bypass surgery (05/30/08) History of cardiac catheterization History of coronary artery stent placement (01/02/15) History of herniorrhaphy History of right-sided carotid endarterectomy History of tonsillectomy PTCA Left Anterior Tibial and Paroneal Artery Social History Smoking Status: Never smoker alcohol intake: never substance use type: does not use caffeine: Yes what type of physical activity do you participate in: none ROS <VIVIAN Houston - Last Filed: 09/23/21 15:13> ROS ED ROS Narrative Constitutional: Negative for fever, chills, malaise. Eyes: Negative for visual change. ENT: Negative for sore throat, ear pain, rhinorrhea. CVS: Negative for palpitations, chest pain, syncope. Respiratory: Negative for shortness of breath, cough, orthopnea. GI: Negative for abdominal pain, nausea, vomiting, diarrhea, constipation, melena, hematochezia. : Negative for dysuria, hematuria or frequency. Neuro: Positive for headache. Negative for motor/sensory dysfunction. Skin: Negative for rash, abscess, or wound. Musc: Negative for joint pain, swelling, trauma. Heme: Negative for easy bruising, bleeding, lymphadenopathy. EXAM <VIVIAN Houston - Last Filed: 09/23/21 15:13> Physical Exam Narrative Exam Narrative: CONST: Patient sitting in no acute distress. EYES: Normal inspection. PERRLA, EOMI. Decreased vision in left temporal region (pt states this is chronic). ENT: Normal inspection, moist mucous membranes. NECK: Normal inspection. Supple, full range of motion. RESP: No respiratory distress, CTAB. CVS: Regular rate and rhythm, no murmur, no gallop. ABD: Soft and nontender, no guarding or rebound, nondistended. Colostomy intact. SKIN: Color normal, no rash, warm, dry, intact. EXTREMITIES: Normal appearance, no pedal edema. NEURO: Oriented x4. Symmetric smile, 5/5 upper and lower extremity strength, normal RUE finger to nose, somewhat limited left shoulder ROM to test finger to nose, normal bilateral heel to davey, normal sensation to light touch, no extinction, no aphasia or dysarthria. PSYCH: Normal affect. Const Vital Signs: 09/23/21 10:15 09/23/21 11:33 09/23/21 12:02 Temperature 98.3 F Temperature Source Oral Pulse Rate 93 99 108 H Respiratory Rate 18 17 18 Blood Pressure 207/87 H 219/103 H 182/72 H Blood Pressure Mean 127 141 108 Pulse Ox 95 94 96 Oxygen Delivery Method Room Air Room Air Room Air Oxygen Flow Rate (L/min) 09/23/21 12:28 09/23/21 14:11 Temperature 99.4 F H Temperature Source Oral Pulse Rate 106 H 109 H Respiratory Rate 16 Blood Pressure 171/76 H 140/66 H Blood Pressure Mean 107 90 Pulse Ox 98 Oxygen Delivery Method Nasal Cannula Oxygen Flow Rate (L/min) 4 <Oniel Mane MD - Last Filed: 09/23/21 16:27> Physical Exam Const Vital Signs: 09/23/21 10:15 09/23/21 11:33 09/23/21 12:02 Temperature 98.3 F Temperature Source Oral Pulse Rate 93 99 108 H Respiratory Rate 18 17 18 Blood Pressure 207/87 H 219/103 H 182/72 H Blood Pressure Mean 127 141 108 Pulse Ox 95 94 96 Oxygen Delivery Method Room Air Room Air Room Air Oxygen Flow Rate (L/min) 09/23/21 12:28 09/23/21 14:11 Temperature 99.4 F H Temperature Source Oral Pulse Rate 106 H 109 H Respiratory Rate 16 Blood Pressure 171/76 H 140/66 H Blood Pressure Mean 107 90 Pulse Ox 98 Oxygen Delivery Method Nasal Cannula Oxygen Flow Rate (L/min) 4 [facility] <VIVIAN Houston - Last Filed: 09/23/21 15:13> [facility] Narrative Medical decision making narrative: Patient presented with headache, chest pain, shortness of breath as well as elevated blood pressure. He appears well nontoxic. BP was 207/87, otherwise normal vital signs. Medical exam is unremarkable and he is neurologically intact. Labs show no sign of endorgan damage. EKG is nonischemic and troponin WNL. Chest x-ray is negative. CT brain showed no acute process. Patient was given IV hydralazine 10 mg. He was given an IV migraine cocktail. He still complained of a headache and had a low-grade temperature of 90 9F so was tested for COVID-19 which is negative. Initially, the plan was to admit for BP control and intractable headache but his BP is trending down to 140s/60s. Case was discussed with the hospitalist who recommended doubling his lisinopril dose to 5 mg daily and adding Norvasc 5 mg once daily. He will continue symptomatic headache treatment at home. He was counseled on signs that would warrant return and instructed to follow-up with his primary care doctor in the next few days. He was discharged in stable condition. Diagnosis 1. Headache 2. Chest pain 3. Chronic hypertension Lab Data Labs: Laboratory Results - last 24 hr 09/23/21 09/23/21 09:50 09:50 WBC 6.4 RBC 4.84 Hgb 13.2 Hct 40.9 MCV 84.5 MCH 27.3 MCHC 32.3 RDW Std Deviation 44.2 H RDW Coeff of Maia 14.5 Plt Count 256 MPV 9.4 Immature Gran % (Auto) 0.200 Neut % (Auto) 76.5 H Lymph % (Auto) 13.7 L [place] % (Auto) 8.0 Eos % (Auto) 1.4 Baso % (Auto) 0.2 Absolute Neuts (auto) 4.9 Absolute Lymphs (auto) 0.87 Nucleated RBC % 0 Sodium 136 Potassium 4.1 Chloride 100 Carbon Dioxide 30.0 Anion Gap 6 BUN 19 H Creatinine 0.98 Estim Creat Clear Calc 72.13 Est GFR (MDRD) Af Amer 99 Est GFR (MDRD) Non-Af 82 BUN/Creatinine Ratio 19.3 Glucose 241 H Calcium 9.4 Troponin I High Sens 14 Radiography Diagnostic Testing: Clinical Impression(s) from Imaging Studies Brain CT 09/23/21 10:29 IMPRESSION: Chronic involutional changes of the brain. Electronically Signed: Navdeep Gonzales MD at 11:39 EST , Chest X-Ray 09/23/21 10:34 IMPRESSION: Mild increased markings at the left lung base suggestive of linear atelectasis and/or scarring with blunting of left costophrenic angle. Electronically Signed: Navdeep Gonzales MD at 11:38 EST , EKG Initial EKG: Attestation: I personally reviewed and interpreted this EKG as follows: Interpretation: Sinus Rhythm Comments: Normal sinus rhythm, normal intervals, no ischemic changes <Oniel Mane MD - Last Filed: 09/23/21 16:27> [facility] MDM Narrative Medical decision making narrative: ATTENDING NOTE: Dr. Mane: The patient was seen in conjunction with the PA-C/nurse practitioner. I performed a history and physical, and agree with the management of this patient. I agree with noted documentation and plan. I discussed the plan of care and final disposition with the physician associate/nurse practitioner. Headache, shortness of breath. Elevated blood pressure. Afebrile. Vital signs noted. Regular rate and rhythm. Neurological examination nonfocal and nonlateralizing. Check labs. Check CT. Analgesia. Blood pressure control. Discharge. Lab Data Labs: Laboratory Results - last 24 hr 09/23/21 09/23/21 09:50 09:50 WBC 6.4 RBC 4.84 Hgb 13.2 Hct 40.9 MCV 84.5 MCH 27.3 MCHC 32.3 RDW Std Deviation 44.2 H RDW Coeff of Maia 14.5 Plt Count 256 MPV 9.4 Immature Gran % (Auto) 0.200 Neut % (Auto) 76.5 H Lymph % (Auto) 13.7 L [place] % (Auto) 8.0 Eos % (Auto) 1.4 Baso % (Auto) 0.2 Absolute Neuts (auto) 4.9 Absolute Lymphs (auto) 0.87 Nucleated RBC % 0 Sodium 136 Potassium 4.1 Chloride 100 Carbon Dioxide 30.0 Anion Gap 6 BUN 19 H Creatinine 0.98 Estim Creat Clear Calc 72.13 Est GFR (MDRD) Af Amer 99 Est GFR (MDRD) Non-Af 82 BUN/Creatinine Ratio 19.3 Glucose 241 H Calcium 9.4 Troponin I High Sens 14 Radiography Diagnostic Testing: Clinical Impression(s) from Imaging Studies Brain CT 09/23/21 10:29 IMPRESSION: Chronic involutional changes of the brain. Electronically Signed: Navdeep Gonzales MD at 11:39 EST , Chest X-Ray 09/23/21 10:34 IMPRESSION: Mild increased markings at the left lung base suggestive of linear atelectasis and/or scarring with blunting of left costophrenic angle. Electronically Signed: Navdeep Gonzales MD at 11:38 EST , Discharge Plan Triage Chief Complaint: Headache ED Provider: Shelia Gale Dx/Rx/DC Orders Clinical Impression: HTN (hypertension), Headache Instructions: Controlling High Blood Pressure, ED Headache Unspecified Prescriptions: New amlodipine [Norvasc] 5 mg tablet 5 mg PO DAILY Qty: 30 RF: 0 lisinopril 5 mg tablet 5 mg PO DAILY Qty: 30 RF: 0 No Action insulin lispro [Humalog KwikPen Insulin] 100 unit/mL insulin pen See Rx Instructions SC .COMPLEX Qty: 60 RF: 3 lisinopril 2.5 mg tablet 2.5 mg PO DAILY RF: 0 gabapentin 300 mg capsule 300 mg PO DAILY RF: 0 fluticasone propionate [Flonase Allergy Relief] 50 mcg/actuation spray,suspension 1 spray intranasal DAILY RF: 0 multivitamin [Daily Multi-Vitamin] Tablet 1 tab PO DAILY RF: 0 aspirin 81 MG tablet,chewable 81 mg PO DAILY RF: 0 duloxetine 60 MG capsule,delayed release(DR/EC) 60 mg PO DAILY RF: 0 insulin detemir U-100 100 unit/mL (3 mL) insulin pen 50 unit SC BID RF: 0 omeprazole 40 MG capsule,delayed release(DR/EC) 40 mg PO DAILY RF: 0 rosuvastatin 20 mg tablet 20 mg PO QHS Qty: 90 RF: 3 Primary Care Provider: Kendy Modi Referrals: Kendy Modi MD [Primary Care Provider] - Activity Restrictions/Additional Instructions: Today you were evaluated for high blood pressure and a headache. Your blood work looks normal. Your EKG shows a normal heart rhythm with no signs of heart attack. Your chest x-ray was normal. We also did a CAT scan of your head due to your headache which appeared normal. You were treated with IV blood pressure and headache medication and your blood pressure did improve. At this time the doctor feels you are safe to go home. Please follow-up with your primary care doctor this week to have your blood pressure rechecked. Continue Tylenol or ibuprofen at home as needed for your headache. Return to the ER for new or worsening symptoms. Disposition Disposition: Home, Self Care Discharge Date/Time: 09/23/21 15:15
[2021-09-23 10:49] LABS: Anion Gap 6 (5-15); BUN 19 mg/dL (7-18); BUN/Creat Ratio 19.3 RATIO (10-20); Calcium,Total 9.4 mg/dL (8.5-10.1); Chloride 100 mmol/L (98-107); Creatinine, Serum 0.98 mg/dL (0.70-1.30); EST Glomerular Filtration Rate 82 mL/min (>60); Est Glom Filt Rate - Afr Amer 99 mL/min (>60); Estimated Creatinine Clearance 72.13 ml/min; Glucose 241 mg/dL (74-106); Potassium 4.1 mmol/L (3.5-5.1); Sodium Level 136 mmol/L (136-145); Troponin-I HS 14 pg/mL (3.0-78.0)
[2021-09-23] MEDS: Aspirin 325 MG Tablet PO (10:54)
[2021-09-23 11:33] VITALS: BP 219/103; PULSE 99; RESP 17; O2SAT 94
[2021-09-23] MEDS: hydrALAZINE 20 MG/ML Vial 10 MG IV (11:33)
[2021-09-23] MEDS: DiphenhydrAMINE 50 MG/ML Syringe 25 MG IV ×2 (11:57→13:06)
[2021-09-23] MEDS: Metoclopramide 10 MG/2 ML Vial 5 MG IV (11:57)
[2021-09-23] MEDS: 0.9% Normal Saline 1,000 ML 999 ML IV (12:00)
[2021-09-23 12:02] VITALS: BP 182/72; PULSE 108; RESP 18; O2SAT 96
[2021-09-23 12:28] VITALS: BP 171/76; PULSE 106
[2021-09-23] MEDS: Ondansetron 4 MG/2 ML Vial IV (12:48)
[2021-09-23] MEDS: Ketorolac 15 MG/ML Vial IV (13:09)
[2021-09-23 14:11] VITALS: BP 140/66; PULSE 109; RESP 16; TEMP 37.4; O2SAT 88; O2SAT 98
[2021-09-23] MEDS: Acetaminophen 500 MG Tablet 1000 MG PO (14:27)
== END 2021-09-23 15:15 | disposition home or self-care (01) ==
PROVIDERS: Emergency Provider Physician Assistant; PCP Family Medicine; Visit Provider Physician Assistant
DX: I10 Essential (primary) hypertension (principal); R51.9 Headache, unspecified; R07.9 Chest pain, unspecified; E11.51 Type 2 diabetes mellitus with diabetic peripheral angiopathy without gangrene; E11.40 Type 2 diabetes mellitus with diabetic neuropathy, unspecified; Z79.4 Long term (current) use of insulin; E78.5 Hyperlipidemia, unspecified; R06.02 Shortness of breath; Z85.038 Personal history of other malignant neoplasm of large intestine; G47.33 Obstructive sleep apnea (adult) (pediatric); F41.9 Anxiety disorder, unspecified; I25.810 Atherosclerosis of coronary artery bypass graft(s) without angina pectoris; R13.10 Dysphagia, unspecified; K21.9 Gastro-esophageal reflux disease without esophagitis; Z79.899 Other long term (current) drug therapy; Z86.73 Personal history of transient ischemic attack (TIA), and cerebral infarction without residual deficits; Z95.5 Presence of coronary angioplasty implant and graft; Z20.822 Contact with and (suspected) exposure to COVID-19
CPT/HCPCS: 70450; 71045; 80048; 84484; 85025; 87426; 93005; 96361; 96374; 96375; 96376; 99285; J7030; A4216; J2405

== ENCOUNTER 2021-09-24 01:07 | Inpatient (IN) | payer BC, MEDICARE, SELFPAY ==
[2021-09-24] VITALS (17 sets, daily range): BP systolic 134–168; BP diastolic 49–87; PULSE 83–110; RESP 11–20; TEMP 36.6–38; O2SAT 86–96; BMI 23.5; BMI 24.3
[2021-09-24 01:15] LABS: Bedside Glucose 148 mg/dL (70-110)
--- NOTE | 2021-09-24 01:19 | EKG12_ITS ---
Test Reason : CONFUSION Blood Pressure : / mmHG Vent. Rate : 094 BPM Atrial Rate : 094 BPM P-R Int : 148 ms QRS Dur : 098 ms QT Int : 378 ms P-R-T Axes : 067 032 079 degrees QTc Int : 472 ms Normal sinus rhythm Nonspecific ST and T wave abnormality Abnormal ECG Confirmed by YOAV MONTE, EDGARDO ([id number]), school photograph editor RY AU ([id number]) on 09/27/2021 9:24:29 AM Referred By: STAN Confirmed By:LUANN CASON MD
--- NOTE | 2021-09-24 01:20 | CT_ITS ---
STUDY: CTA CHEST REASON FOR EXAM: Male, 65 years old. Shortness of breath, rule out PE RADIATION DOSAGE (If Supplied By Facility): CTDIvol = ( 26.98 ) mGy, DLP = ( 875.79 ) mGycm TECHNIQUE: The examination was performed with the intravenous administration of IV 100mL Isovue-370. Post-processing of the angiographic images was performed, with multiplanar reformation and 3D reconstruction. Individualized dose optimization techniques were used for this CT. COMPARISON: None. FINDINGS: No filling defect in the pulmonary arteries to suggest pulmonary embolism. Atherosclerosis of the thoracic aorta and coronary arteries noted. Status post CABG. No pleural or pericardial effusion. No adenopathy. No pneumothorax. No pulmonary consolidation, mass, or suspicious nodule. Platelike atelectasis versus linear scars in the lung bases. Mild bibasilar dependent atelectasis. Small hiatal hernia. Mild bilateral gynecomastia. Sections through the upper abdomen demonstrate diffuse hepatic steatosis. Calcified splenic granulomas. Multilevel thoracic spondylosis. Old compression fractures of T3 and T5. Diffuse osteopenia. Impacted fracture of the left humeral head with surrounding exuberant callus formation. Intact sternotomy wires. CT/CTA Chest W/WO Contrast IMPRESSION: No acute finding the chest with no evidence of pulmonary embolism. Chronic findings as above. Electronically Signed: Maykel Quigley MD at 3:40 EST ,
--- NOTE | 2021-09-24 01:20 | CT_ITS ---
STUDY: CTA HEAD AND NECK WITH CONTRAST REASON FOR EXAM: Male, 65 years old. weakness RADIATION DOSAGE (If Supplied By Facility): CTDIvol = ( 35.42 ) mGy, DLP = ( 1765.21 ) mGycm TECHNIQUE: CT angiography was performed with a multi-detector CT scanner. Data acquisition was obtained from the skull base through the vertex following intravenous administration of IV 100mL Isovue-370. MIP images were reconstructed from the axial data set. Post-processing of the angiographic images was performed, with multiplanar reformation and 3D reconstruction. Individualized dose optimization techniques were used for this CT. COMPARISON: No relevant priors. FINDINGS: Normal bilateral petrous carotid arteries. There is calcified plaque formation of the right cavernous carotid artery, with a mild stenosis (less than 50%). There is calcified plaque formation of the left cavernous carotid artery, with a mild stenosis (less than 50%). Normal right A1 segments of the anterior cerebral artery. Normal left A1 segments of the anterior cerebral artery. Normal intact anterior communicating artery (ACOM). Normal bilateral A2 segments of the anterior cerebral arteries. Normal right M1 and M2 segments of the middle cerebral arteries, with a normal M1 bifurcation. Normal left M1 and M2 segments of the middle cerebral arteries, with a normal M1 bifurcation. Normal right posterior communicating artery (PCOM). Normal left posterior communicating artery (PCOM). Normal bilateral vertebral arteries. Normal basilar artery with a normal basilar bifurcation. The visualized bilateral superior cerebellar (SCA) arteries are normal. Normal bilateral P1, P2 and visualized P3 segments of the posterior cerebral arteries. There is no demonstrated aneurysm of the [place]. There is no demonstrated abnormality of the visualized brain. AORTIC ARCH: There is a bovine origin of the great vessels arising from the aortic arch with a common origin of the brachiocephalic and left common carotid artery. Normal origin of the left subclavian artery. Normal origins of the brachiocephalic, left common carotid, and left subclavian arteries. RIGHT CAROTID ARTERIES: Normal right common carotid artery (CCA). There is moderate atherosclerotic plaque formation with moderate narrowing of the right carotid bulb. Grossly 50% stenosis. Normal origin of the right internal carotid (ICA) artery without a hemodynamically significant stenosis. Normal visualized cervical portion of the right internal carotid artery. Normal origin of the right external carotid artery (ECA). LEFT CAROTID ARTERIES: Normal left common carotid artery (CCA). There is mild atherosclerotic plaque formation with minimal narrowing of the left carotid bulb. No significant stenosis. Normal origin of the left internal carotid (ICA) artery without a hemodynamically significant stenosis. Normal visualized cervical portion of the left internal carotid artery. Normal origin of the left external carotid artery (ECA). VERTEBRAL ARTERIES: There is a complete occlusion within the right vertebral artery with reconstitution of flow distally. Normal appearance of the left vertebral artery. Normal appearance of the basilar artery and superior cerebellar arteries. CT/CTA Head AND Neck W/ Contrast IMPRESSION: 1. Intact [place] 2. Significant atherosclerotic disease in the bilateral carotid siphons with mild stenosis 3. Significant atherosclerotic disease with intimal wall thickening of the right carotid bulb with roughly 50% stenosis. Likely prior right carotid endarterectomy 4. Areas of occlusion of the right vertebral artery with reconstitution of flow distally. Normal left vertebral artery and posterior circulation. Likely chronic in nature. Electronically Signed: Santiago Babin DO at 3:45 EST ,
--- NOTE | 2021-09-24 01:23 | EDS_ITS ---
HPI History of Present Illness Chief Complaint: Confusion Detail of Chief Complaint: Confusion and generalized weakness Informant: patient and spouse/S.O. Onset/Context/Timing Onset: Yesterday Narrative Narrative: Patient returns back to the emergency room for evaluation. Patient was seen yesterday with concerns of a right-sided headache and right chest pain. Spouse states he was concerned he may have had a stroke because of weakness. Work-up in the emergency room yesterday revealed unremarkable lab work and head CT. He was given medication for blood pressure control. states that when they left he was generally weak. Over the past several hours he has had increased confusion such as not knowing where he was or why they were going back to the hospital when he had been told. Patient denies any pain currently. 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 Cancer Cardiology follow-up encounter Carotid artery disease Colorectal cancer CPAP (continuous positive airway pressure) dependence CVA (cerebral vascular accident) Depression Diabetic neuropathy Dietary restriction Dyslipidemia Dysphagia Gastric reflux GERD (gastroesophageal reflux disease) High cholesterol History of echocardiogram History of heart attack History of pain when walking History of stress test HTN (hypertension) Injury of back Injury of head and neck 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 Leg cramps Loss of hearing Non-smoker Obstructive sleep apnea ALEJANDRO (obstructive sleep apnea) Peripheral vascular occlusive disease Restless legs Restrictive lung disease Shortness of breath on exertion Syncope Type 2 diabetes mellitus Walker as ambulation aid Wears glasses Home Medications aspirin 81 mg PO DAILY 03/20/16 [History Last Taken 09/23/21] duloxetine 60 mg PO DAILY 03/20/16 [History Last Taken 09/23/21] insulin lispro 100 unit/mL subcutaneous pen See Rx Instructions SC .COMPLEX #60 ml 04/02/18 [Rx Last Taken 09/22/21] omeprazole 40 mg PO DAILY 01/09/20 [History Last Taken 09/22/21] fluticasone propionate 50 mcg/actuation nasal spray,suspension 1 spray INTRANASAL DAILY 12/17/20 [History Last Taken 09/22/21] gabapentin 300 mg capsule 300 mg PO DAILY 12/17/20 [History Last Taken 09/23/21] insulin detemir U-100 100 unit/mL (3 mL) subcutaneous pen 50 unit SC BID ml 12/17/20 [History Last Taken 09/22/21] lisinopril 2.5 mg tablet 2.5 mg PO DAILY 12/17/20 [History Last Taken 09/23/21] rosuvastatin 20 mg tablet 20 mg PO QHS #90 tab 02/23/21 [Rx Last Taken 09/22/21] multivitamin 1 tab PO DAILY 06/22/21 [History Last Taken 09/23/21] amlodipine [Norvasc] 5 mg PO DAILY #30 tab 09/23/21 [Rx Last Taken Unknown] lisinopril 5 mg PO DAILY #30 tab 09/23/21 [Rx Last Taken Unknown] Allergy/AdvReac Type Severity Reaction Status Date / Time No Known Allergies Allergy Verified 09/23/21 10:15 Family History Father CAD (coronary artery disease) Hypertension Cancer leukemia Diabetes Heart disease High cholesterol Mother CVA (cerebral vascular accident) Diabetes Breast cancer Brother Diabetes Surgical History Excision Max.Zygoma Face Tumor H/O coronary artery bypass surgery (05/30/08) History of cardiac catheterization History of coronary artery stent placement (01/02/15) History of herniorrhaphy History of right-sided carotid endarterectomy History of tonsillectomy PTCA Left Anterior Tibial and Paroneal Artery Social History Smoking Status: Never smoker alcohol intake: never substance use type: does not use caffeine: Yes what type of physical activity do you participate in: none ROS ROS ED Constitutional Constitutional ED: Denies chills or fever(s) Eyes Eyes: Denies blurry vision ENT ENT ED: Denies ear pain or rhinorrhea Cardiovascular Cardiovascular: Reports other Details: Right chest pain earlier today, denies currently. ; Denies chest pain Respiratory/Chest Respiratory/Chest: Denies cough or dyspnea Gastrointestinal Gastrointestinal: Denies abdominal pain, diarrhea or vomiting Genitourinary Genitourinary ED: Denies dysuria Musculoskeletal Musculoskeletal: Denies back pain or neck pain Neurologic Neurologic: Reports other Details: Right-sided headache earlier today, denies currently. ; Denies headache(s) Allergic/Immunologic Allergic/Immunologic ED: Denies urticaria EXAM Physical Exam Const Vital Signs: 09/24/21 01:07 09/24/21 03:10 09/24/21 03:51 Temperature 98 F 97.9 F Temperature Source Temporal Temporal Pulse Rate 95 93 91 Respiratory Rate 11 L 18 18 Blood Pressure 168/74 H 166/67 H 157/67 H Blood Pressure Mean 105 100 97 Pulse Ox 92 96 93 Oxygen Delivery Method Room Air Nasal Cannula Nasal Cannula Oxygen Flow Rate (L/min) 4 4 Positive well nourished and well developed General Appearance ED: well developed HEENT Reports moist mucous membranes Eyes PERRL and EOMs intact bilaterally Neck supple Neck Narrative: No meningismus. Chest Wall inspection of chest normal and palpation of chest normal Resp normal respiratory effort and clear to auscultation bilaterally Cardio regular rate and regular rhythm GI non-tender Auscultation: hypoactive bowel sounds Palpation: soft Back/Spine Negative for no CVA tenderness Extremity normal to inspection Neuro Neuro Narrative: No facial droop noted. Normal sensation on testing. Patient with difficulty raising left arm, but states that is at baseline due to old injury. Patient able to lift both legs and right arm without difficulty. Sensorium / Orientation: alert Psych Psych Narrative: Flat affect Skin no rashes or lesions noted MDM MDM MDM Narrative Medical decision making narrative: EKG, lab work, urinalysis obtained. CTA of the head and neck along with CTA of the chest ordered. Because patient has confusion and normally wears BiPAP secondary to sleep apnea and ABG was obtained. Blood sugar on arrival was normal. Lab Data Attestation: I reviewed the patient's lab results. Labs: Laboratory Results - last 24 hr 09/24/21 09/24/21 09/24/21 01:11 01:15 01:15 WBC 6.5 RBC 4.47 L Hgb 12.6 L Hct 36.5 L MCV 81.7 MCH 28.2 MCHC 34.5 D RDW Std Deviation 42.8 RDW Coeff of Maia 14.5 Plt Count 248 MPV 8.9 Immature Gran % (Auto) 0.300 Neut % (Auto) 73.7 H Lymph % (Auto) 14.3 L [place] % (Auto) 11.3 H Eos % (Auto) 0.2 Baso % (Auto) 0.2 Absolute Neuts (auto) 4.8 Absolute Lymphs (auto) 0.93 Nucleated RBC % 0 Sodium 138 Potassium 3.5 Chloride 102 Carbon Dioxide 27.0 Anion Gap 9 BUN 22 H Creatinine 1.22 Estim Creat Clear Calc 57.94 Est GFR (MDRD) Af Amer 77 Est GFR (MDRD) Non-Af 64 BUN/Creatinine Ratio 18.0 Glucose 145 H Calcium 8.9 Total Bilirubin 0.30 Direct Bilirubin 0.11 AST 153 H ALT 47 Alkaline Phosphatase 106 Ammonia Troponin I High Sens 14445 H* Total Protein 7.2 Albumin 3.4 Globulin 3.8 Urine Color Urine Clarity Urine pH Ur Specific [place] Urine Protein Urine Glucose (UA) Urine Ketones Urine Occult Blood Urine Nitrite Urine Bilirubin Urine Urobilinogen Ur Leukocyte Esterase Urine RBC Urine WBC Ur Squamous Epith Cells Urine Bacteria Urine Mucus POC Glucose 148 H 09/24/21 09/24/21 01:33 02:25 WBC RBC Hgb Hct MCV MCH MCHC RDW Std Deviation RDW Coeff of Maia Plt Count MPV Immature Gran % (Auto) Neut % (Auto) Lymph % (Auto) [place] % (Auto) Eos % (Auto) Baso % (Auto) Absolute Neuts (auto) Absolute Lymphs (auto) Nucleated RBC % Sodium Potassium Chloride Carbon Dioxide Anion Gap BUN Creatinine Estim Creat Clear Calc Est GFR (MDRD) Af Amer Est GFR (MDRD) Non-Af BUN/Creatinine Ratio Glucose Calcium Total Bilirubin Direct Bilirubin AST ALT Alkaline Phosphatase Ammonia 32.0 Troponin I High Sens Total Protein Albumin Globulin Urine Color Yellow Urine Clarity Sl. Cloudy Urine pH 5.0 Ur Specific [place] 1.020 Urine Protein 100 H Urine Glucose (UA) 250 H Urine Ketones 5 H Urine Occult Blood 25 H Urine Nitrite Negative Urine Bilirubin Negative Urine Urobilinogen Normal Ur Leukocyte Esterase 500 H Urine RBC 0 SEEN Urine WBC >100 SEEN Ur Squamous Epith Cells 0 SEEN Urine Bacteria 4+ Urine Mucus 0 SEEN POC Glucose ABG Data ABG results: ABG 09/24/21 02:18 Specimen Type ART Sample Site R Radial pH 7.40 Bicarbonate Actual 28.6 H Total CO2 30 Base Excess 4 H O2 Saturation 85 L ABG pCO2 46.5 H ABG pO2 51 L [place] Test N/A O2 Delivery Device Cannula Liter Flow 4.0 Radiography Diagnostic Testing: Clinical Impression(s) from Imaging Studies Chest CTA 09/24/21 01:20 IMPRESSION: No acute finding the chest with no evidence of pulmonary embolism. Chronic findings as above. Electronically Signed: Maykel Quigley MD at 3:40 EST , Head/Neck CTA 09/24/21 01:20 IMPRESSION: 1. Intact [place] 2. Significant atherosclerotic disease in the bilateral carotid siphons with mild stenosis 3. Significant atherosclerotic disease with intimal wall thickening of the right carotid bulb with roughly 50% stenosis. Likely prior right carotid endarterectomy 4. Areas of occlusion of the right vertebral artery with reconstitution of flow distally. Normal left vertebral artery and posterior circulation. Likely chronic in nature. Electronically Signed: Santiago DO Olaf at 3:45 EST , EKG Initial EKG: Attestation: I personally reviewed and interpreted this EKG as follows: Interpretation: Sinus Rhythm (Sinus at [address] depression. This is changed when compared to prior study from the day previous.) Treatment and Re-Evaluation Comments:: Patient's oxygen saturation was approximately 87% on room air. He was placed on nasal cannula. ABG reveals pH is 7.397 with PCO2 of 46.5 and PO2 of 50.6. This was obtained just prior to initiating nasal cannula. Lab work reviewed. White count normal. Chemistry studies unremarkable. Troponin elevated at 29,000. Ammonia level normal. Urinalysis does show significant infection with greater than 100 white cells and 4+ bacteria. Blood and urine cultures are sent and patient is given IV Rocephin. CTA of the head and neck along with CTA of the chest reveal no acute abnormalities. I spoke with Dr. Askew, on-call for cardiology. Patient will be started on heparin drip and plan will be for cardiac cath in the morning. I will speak with hospitalist for admission. Discharge Plan Triage Chief Complaint: Confusion ED Provider: Citlali Zurita Dx/Rx/DC Orders Clinical Impression: Non-ST elevation MT (NSTEMI), UTI (urinary tract infection), Hypoxia Prescriptions: No Action insulin lispro [Humalog KwikPen Insulin] 100 unit/mL insulin pen See Rx Instructions SC .COMPLEX Qty: 60 RF: 3 lisinopril 2.5 mg tablet 2.5 mg PO DAILY RF: 0 gabapentin 300 mg capsule 300 mg PO DAILY RF: 0 fluticasone propionate [Flonase Allergy Relief] 50 mcg/actuation spray,suspension 1 spray intranasal DAILY RF: 0 multivitamin [Daily Multi-Vitamin] Tablet 1 tab PO DAILY RF: 0 aspirin 81 MG tablet,chewable 81 mg PO DAILY RF: 0 duloxetine 60 MG capsule,delayed release(DR/EC) 60 mg PO DAILY RF: 0 insulin detemir U-100 100 unit/mL (3 mL) insulin pen 50 unit SC BID RF: 0 omeprazole 40 MG capsule,delayed release(DR/EC) 40 mg PO DAILY RF: 0 amlodipine [Norvasc] 5 mg tablet 5 mg PO DAILY Qty: 30 RF: 0 lisinopril 5 mg tablet 5 mg PO DAILY Qty: 30 RF: 0 rosuvastatin 20 mg tablet 20 mg PO QHS Qty: 90 RF: 3 Primary Care Provider: Kendy Modi Referrals: Kendy Modi MD [Primary Care Provider] - Disposition Disposition: Acute Care Hospital [facility]
[2021-09-24 01:32] LABS: Absolute Lymphocyte Count 0.93 X10^3/uL (0.83-4.51); Absolute Neutrophil Count 4.8 X10^3/uL (2.0-7.7); Basophil# 0.01 X10^3/uL; Basophil% 0.2 % (0-1); Eosinophil# 0.01 X10^3/uL; Eosinophils% 0.2 % (0-5); Hematocrit 36.5 % (40-54); Hemoglobin 12.6 g/dL (13.0-16.5); Lymphocyte # 0.93 X10^3/ul (0.83-4.51); Lymphocyte % 14.3 % (19-41); Mean Corp Hgb Conc 34.5 g/dL (32-36); Mean Corpuscular Hgb 28.2 pg (27.0-32.0); Mean Corpuscular Volume 81.7 fL (80-94); Mean Platelet Vol. 8.9 fl (6.2-12.0); Monocyte# 0.74 X10^3/uL; Monocyte% 11.3 % (0-10); NRBC Flagged by Analyzer 0 % (0-5); Neutrophil # 4.81 X10^3/uL (2.7-7.7); Neutrophil % 73.7 % (47-70); Platelet Count 248 K/mm3 (150-450); RBC Distribution Width CV 14.5 % (11.6-14.6); RBC Distribution Width SD 42.8 fl (35.1-43.9); Red Blood Count 4.47 M/mm3 (4.6-6.2); White Blood Count 6.5 K/mm3 (4.4-11.0)
[2021-09-24 02:26] LABS: Base Excess 4 mmol/L (-2 to +2); Bicarbonate 28.6 mmol/L (22-26); Blood Gas Specimen Type ART; O2 Delivery Device Cannula; PO2 51 mmHG (75-100); SITE R Radial; SO2 85 % (95-99); Total Carbon Dioxide 30 mmol/L; pCO2 46.5 mmHg (35-45)
[2021-09-24] MEDS: 0.9% Normal Saline 1,000 ML 150 ML IV ×4 (02:26→23:27)
[2021-09-24 02:29] LABS: Mucous, Urine 0 SEEN /hpf (<or=2+); Red Blood Cells-Urine 0 SEEN /hpf (0-5); Squamous Epithelial Cells - UA 0 SEEN /hpf (0-5)
[2021-09-24 02:29] LABS: AST(SGOT) 153 U/L (15-37); Alanine Aminotransfer ALT/SGPT 47 U/L (16-61); Albumin, Serum 3.4 g/dL (3.2-5.0); Alkaline Phosphatase 106 U/L (45-117); Anion Gap 9 (5-15); BUN 22 mg/dL (7-18); Bilirubin, Direct 0.11 mg/dL (0.00-0.30); Calcium,Total 8.9 mg/dL (8.5-10.1); Chloride 102 mmol/L (98-107); Creatinine, Serum 1.22 mg/dL (0.70-1.30); EST Glomerular Filtration Rate 64 mL/min (>60); Est Glom Filt Rate - Afr Amer 77 mL/min (>60); Estimated Creatinine Clearance 57.94 ml/min; Globulin 3.8 g/dL (2.2-4.2); Glucose 145 mg/dL (74-106); Potassium 3.5 mmol/L (3.5-5.1); Protein, Total 7.2 g/dL (6.4-8.2); Sodium Level 138 mmol/L (136-145); Troponin-I HS 29054 pg/mL (3.0-78.0)
[2021-09-24 02:31] LABS: Color, Urine Yellow (Yellow); Glucose, Dipstick 250 mg/dl (Normal); Ketone-Dipstick 5 mg/dl (Negative); Leukocyte Esterase-Dipstick 500 /ul (Negative); Nitrite-Dipstick Negative (Negative); Occult Blood-Urine 25 /ul (Negative); Protein-Dipstick 100 mg/dl (Negative); Urine Bilirubin Dipstick Negative (Negative); Urine Clarity Sl. Cloudy (Clear); Urine Urobilinogen Normal (Normal)
[2021-09-24 02:48] LABS: Bacteria 4+ /hpf (None Seen); White Blood Cells >100 SEEN /hpf (0-5)
[2021-09-24] MEDS: Ceftriaxone 1 GM/50 ML BAG IV ×2 (03:09→21:14)
[2021-09-24 04:07] LABS: International Normalized Ratio 1.1; Partial Thromboplast Time 53.9 Seconds (24.1-36.2); Prothrombin Time (Protime)PT. 13.2 SECONDS (11.7-14.9)
--- NOTE | 2021-09-24 04:12 | PCM.HP.STD ---
HPI - General General Date of Admission: 09/24/21 Date of Service: 09/24/21 Chief Complaint: Confusion, headache - 1 day HPI Narrative MICTH VEGA, is a 65 M who presents with the above. History was taken from his as patient appeared confused. Patient was seen in the ED on his second visit a few hours apart. He has multiple past medical history significant for colorectal CA status post colostomy status post chemotherapy, in remission, hypertension, type II DM, sleep apnea, history of stroke with residual left-sided weakness who was in his usual state of health until he woke up on the day of admission with right-sided headache worse around his temples. This headache was not new, usually comes and goes. His blood pressure was found to be elevated more than 200 systolic, CT of the brain showed no acute cardiopulmonary process. Patient was treated with IV hydralazine and migraine cocktail. His blood pressures improved and was discharged home. Patient presented back with confusion. According to the , undergo home, patient was sporadically confused, unable to follow commands and be helped to the bathroom. She called the EMS back. His was concerned for possible stroke. CTA of the head and neck was remarkable for complete occlusion of the right cerebral artery with reconstitution of flow distally. His admitting blood work was unremarkable except for creatinine 1.22 from previous creatinine of 0.98. His troponin was elevated at 29,054. His EKG showed no acute ST-T changes. CTA of the chest was negative for acute PE. ABGs were unremarkable. 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 Cancer Cardiology follow-up encounter Carotid artery disease Colorectal cancer CPAP (continuous positive airway pressure) dependence CVA (cerebral vascular accident) Depression Diabetic neuropathy Dietary restriction Dyslipidemia Dysphagia Gastric reflux GERD (gastroesophageal reflux disease) High cholesterol History of echocardiogram History of heart attack History of pain when walking History of stress test HTN (hypertension) Injury of back Injury of head and neck 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 Leg cramps Loss of hearing Non-smoker Obstructive sleep apnea ALEJANDRO (obstructive sleep apnea) Peripheral vascular occlusive disease Restless legs Restrictive lung disease Shortness of breath on exertion Syncope Type 2 diabetes mellitus Walker as ambulation aid Wears glasses Home Medications aspirin 81 mg PO DAILY 03/20/16 [History Last Taken 09/23/21] duloxetine 60 mg PO DAILY 03/20/16 [History Last Taken 09/23/21] insulin lispro 100 unit/mL subcutaneous pen See Rx Instructions SC .COMPLEX #60 ml 04/02/18 [Rx Last Taken 09/22/21] omeprazole 40 mg PO DAILY 01/09/20 [History Last Taken 09/22/21] fluticasone propionate 50 mcg/actuation nasal spray,suspension 1 spray INTRANASAL DAILY 12/17/20 [History Last Taken 09/22/21] gabapentin 300 mg capsule 300 mg PO DAILY 12/17/20 [History Last Taken 09/23/21] insulin detemir U-100 100 unit/mL (3 mL) subcutaneous pen 50 unit SC BID ml 12/17/20 [History Last Taken 09/22/21] lisinopril 2.5 mg tablet 2.5 mg PO DAILY 12/17/20 [History Last Taken 09/23/21] rosuvastatin 20 mg tablet 20 mg PO QHS #90 tab 02/23/21 [Rx Last Taken 09/22/21] multivitamin 1 tab PO DAILY 06/22/21 [History Last Taken 09/23/21] amlodipine [Norvasc] 5 mg PO DAILY #30 tab 09/23/21 [Rx Last Taken Unknown] lisinopril 5 mg PO DAILY #30 tab 09/23/21 [Rx Last Taken Unknown] Allergy/AdvReac Type Severity Reaction Status Date / Time No Known Allergies Allergy Verified 09/23/21 10:15 Family History Father CAD (coronary artery disease) Hypertension Cancer leukemia Diabetes Heart disease High cholesterol Mother CVA (cerebral vascular accident) Diabetes Breast cancer Brother Diabetes Surgical History Excision Max.Zygoma Face Tumor H/O coronary artery bypass surgery (05/30/08) History of cardiac catheterization History of coronary artery stent placement (01/02/15) History of herniorrhaphy History of right-sided carotid endarterectomy History of tonsillectomy PTCA Left Anterior Tibial and Paroneal Artery Social History Smoking Status: Never smoker alcohol intake: never substance use type: does not use caffeine: Yes what type of physical activity do you participate in: none ROS Review of Systems ROS Unobtainable: due to encephalopathy Vital Signs Vital Signs Vital Signs: 09/24/21 01:07 09/24/21 03:10 09/24/21 03:51 Temperature 98 F 97.9 F Temperature Source Temporal Temporal Pulse Rate 95 93 91 Respiratory Rate 11 L 18 18 Blood Pressure 168/74 H 166/67 H 157/67 H Blood Pressure Mean 105 100 97 Pulse Ox 92 96 93 Oxygen Delivery Method Room Air Nasal Cannula Nasal Cannula Oxygen Flow Rate (L/min) 4 4 Weight Weight: 68.2 kg Body Mass Index (BMI) 23.5 Physical Exam Narrative Physical exam: General: Alert, Oriented x3, Cooperative, appeared lethargic HEENT: Atraumatic Oral: Moist Mucosa Neck: Supple Lungs: Clear to auscultation Cardiovascular: HS I+II, regular, no murmurs Abdomen: Bowel Sounds Present, Soft, Non Tender, colostomy Extremities: No edema Skin: No rashes, No breakdown Neurological: Grossly intact, Able to move all extremities Results Lab / Micro Data Result Diagrams: 09/24/21 01:15 09/24/21 01:15 Labs: Laboratory Results - last 24 hr 09/24/21 01:11: POC Glucose 148 H 09/24/21 01:15: WBC 6.5, RBC 4.47 L, Hgb 12.6 L, Hct 36.5 L, MCV 81.7, MCH 28.2, MCHC 34.5 D, RDW Std Deviation 42.8, RDW Coeff of Maia 14.5, Plt Count 248, MPV 8.9, Immature Gran % (Auto) 0.300, Neut % (Auto) 73.7 H, Lymph % (Auto) 14.3 L, [place] % (Auto) 11.3 H, Eos % (Auto) 0.2, Baso % (Auto) 0.2, Absolute Neuts (auto) 4.8, Absolute Lymphs (auto) 0.93, Nucleated RBC % 0 09/24/21 01:15: Sodium 138, Potassium 3.5, Chloride 102, Carbon Dioxide 27.0, Anion Gap 9, BUN 22 H, Creatinine 1.22, Estim Creat Clear Calc 57.94, Est GFR (MDRD) Af Amer 77, Est GFR (MDRD) Non-Af 64, BUN/Creatinine Ratio 18.0, Glucose 145 H, Calcium 8.9, Total Bilirubin 0.30, Direct Bilirubin 0.11, AST 153 H, ALT 47, Alkaline Phosphatase 106, Troponin I High Sens 39127 H*, Total Protein 7.2, Albumin 3.4, Globulin 3.8 09/24/21 01:15: PT 13.2, INR 1.1, APTT 53.9 H 09/24/21 01:33: Ammonia 32.0 09/24/21 02:25: Urine Color Yellow, Urine Clarity Sl. Cloudy, Urine pH 5.0, Ur Specific [place] 1.020, Urine Protein 100 H, Urine Glucose (UA) 250 H, Urine Ketones 5 H, Urine Occult Blood 25 H, Urine Nitrite Negative, Urine Bilirubin Negative, Urine Urobilinogen Normal, Ur Leukocyte Esterase 500 H, Urine RBC 0 SEEN, Urine WBC >100 SEEN, Ur Squamous Epith Cells 0 SEEN, Urine Bacteria 4+, Urine Mucus 0 SEEN ABG Data ABG results: ABG 09/24/21 02:18 Specimen Type ART Sample Site R Radial pH 7.40 Bicarbonate Actual 28.6 H Total CO2 30 Base Excess 4 H O2 Saturation 85 L ABG pCO2 46.5 H ABG pO2 51 L [place] Test N/A O2 Delivery Device Cannula Liter Flow 4.0 Radiology Impression Chest CTA 09/24/21 01:20 IMPRESSION: No acute finding the chest with no evidence of pulmonary embolism. Chronic findings as above. Electronically Signed: Maykel Quigley MD at 3:40 EST , Head/Neck CTA 09/24/21 01:20 IMPRESSION: 1. Intact [place] of [place] 2. Significant atherosclerotic disease in the bilateral carotid siphons with mild stenosis 3. Significant atherosclerotic disease with intimal wall thickening of the right carotid bulb with roughly 50% stenosis. Likely prior right carotid endarterectomy 4. Areas of occlusion of the right vertebral artery with reconstitution of flow distally. Normal left vertebral artery and posterior circulation. Likely chronic in nature. Electronically Signed: Santiago Babin DO at 3:45 EST , Assessment & Plan Assessment/Plan (1) Non-ST elevation MA (NSTEMI): (2) Hypoxia: (3) UTI (urinary tract infection): QUALIFIERS: Urinary tract infection type: acute cystitis Hematuria presence: without hematuria Qualified Code(s): N30.00 - Acute cystitis without hematuria PLAN: 1. Acute non-STEMI, in a patient with history of CAD Status is CABG, status post stents Admitting troponin is more than 29,000, EKG shows no acute ST changes. Acute PE ruled out from negative CTA of the chest Cardiology informed from ED Continue heparin drip, aspirin, add carvedilol 2. Acute metabolic encephalopathy Likely secondary to acute UTI versus possible acute stroke CTA of the head and neck shows Right vertebral artery occlusion with collaterals History of right carotid endarterectomy UA suggestive of acute UTI; started IV ceftriaxone, will continue same MRI of the brain to rule out acute stroke; consider adding stroke protocol/order set if MRI comes back positive 3. Hypertensive urgency, better controlled, continue with carvedilol and hydralazine prn. 4. Type II DM, on insulin Home medication list has not been confirmed Continue with insulin sliding scale with blood glucose checks for now whilst NPO 5. Rest of his chronic medical conditions include ALEJANDRO, dyslipidemia, anxiety, GERD, history of colorectal CA status post colostomy, in remission,-stable. Home med list not reconciled at the time of note 6. DVT PPx- Heparin Drip Charges/Coding Visit Charges Inpatient E&M: 66736 Init Hosp L3
[2021-09-24] MEDS: Heparin Injection (Vial) 5,000 UNIT/ML VIAL 4500 UNIT IV (04:13)
[2021-09-24] MEDS: 0.9% Saline Lock 10 ML Syringe IV ×2 (05:44→10:40)
--- NOTE | 2021-09-24 06:25 | MRI_ITS ---
STUDY: MRI BRAIN WITHOUT CONTRAST REASON FOR EXAM: Male, 65 years old. neuro deficit, ams, TECHNIQUE: Standardized multiplanar fat and water weighted pulse sequences were obtained. COMPARISON: CT 09/23/2021, MRI 03/22/2016 FINDINGS: There is moderate cerebral atrophy with widening of the extra-axial spaces and ventricular dilatation. There are multiple white matter hyperintensities, distributed throughout the deep white matter tracts of the cerebral hemispheres, consistent with moderate chronic white matter ischemic changes. There is no evidence for recent intracranial ischemia or other cause of cytotoxic edema on diffusion weighted imaging (DWI). Normal bilateral basal ganglia. Normal thalami. There is no extra-axial fluid accumulation. Normal flow voids within the major intracranial circulation suggesting patency by spin echo criteria. Normal sella turcica, pituitary gland, infundibular stalk, optic chiasm and hypothalamus. Normal tectal plate and pineal gland. Normal midbrain, teresa and medulla. Normal cerebellum. Normal basal cisterns. Normal bilateral temporal bones. Normal bilateral internal auditory canals. No demonstrated orbital abnormality, within the constraints of a routine brain study. Normal visualized paranasal sinuses. Normal calvarium and skull base. Normal visualized soft tissue structures. Normal visualized upper cervical spine. MRI/Brain without Contrast IMPRESSION: Involutional changes of the brain, as described above. No acute infarct. Electronically Signed: Flash Mcintyre MD at 16:33 EST ,
[2021-09-24 06:55] LABS: Bedside Glucose 95 mg/dL (70-110)
[2021-09-24 07:34] LABS: Absolute Lymphocyte Count 0.77 X10^3/uL (0.83-4.51); Absolute Neutrophil Count 5.8 X10^3/uL (2.0-7.7); Basophil# 0.01 X10^3/uL; Basophil% 0.1 % (0-1); Eosinophil# 0.02 X10^3/uL; Eosinophils% 0.3 % (0-5); Hematocrit 37.8 % (40-54); Hemoglobin 12.6 g/dL (13.0-16.5); Lymphocyte # 0.77 X10^3/ul (0.83-4.51); Lymphocyte % 10.3 % (19-41); Mean Corp Hgb Conc 33.3 g/dL (32-36); Mean Corpuscular Hgb 28.1 pg (27.0-32.0); Mean Corpuscular Volume 84.2 fL (80-94); Mean Platelet Vol. 8.9 fl (6.2-12.0); Monocyte# 0.87 X10^3/uL; Monocyte% 11.7 % (0-10); NRBC Flagged by Analyzer 0 % (0-5); Neutrophil # 5.76 X10^3/uL (2.7-7.7); Neutrophil % 77.3 % (47-70); Platelet Count 227 K/mm3 (150-450); RBC Distribution Width CV 14.6 % (11.6-14.6); RBC Distribution Width SD 44.8 fl (35.1-43.9); Red Blood Count 4.49 M/mm3 (4.6-6.2); White Blood Count 7.5 K/mm3 (4.4-11.0)
[2021-09-24] MEDS: Carvedilol 3.125 MG TABLET PO (08:11)
[2021-09-24] MEDS: Aspirin 81 MG TAB.CHEW PO (08:11)
[2021-09-24 08:16] LABS: ALB/GLOB Ratio 0.9 RATIO (0.9-2.4); AST(SGOT) 148 U/L (15-37); Alanine Aminotransfer ALT/SGPT 44 U/L (16-61); Albumin, Serum 3.2 g/dL (3.2-5.0); Alkaline Phosphatase 96 U/L (45-117); Anion Gap 5 (5-15); BUN 17 mg/dL (7-18); BUN/Creat Ratio 18.7 RATIO (10-20); Calcium,Total 8.2 mg/dL (8.5-10.1); Chloride 103 mmol/L (98-107); Creatinine, Serum 0.91 mg/dL (0.70-1.30); EST Glomerular Filtration Rate 89 mL/min (>60); Est Glom Filt Rate - Afr Amer 108 mL/min (>60); Estimated Creatinine Clearance 77.68 ml/min; Globulin 3.5 g/dL (2.2-4.2); Glucose 86 mg/dL (74-106); Potassium 3.5 mmol/L (3.5-5.1); Protein, Total 6.7 g/dL (6.4-8.2); Sodium Level 138 mmol/L (136-145); Troponin-I HS 25892 pg/mL (3.0-78.0)
--- NOTE | 2021-09-24 09:34 | CASEMGMT ---
Tertiary facilities in-network with patient's insurance include: [facility], [facility], [facility], [facility], [facility], , [facility]
[2021-09-24] MEDS: LORazepam 2 MG/ML Syringe 0.5 MG IV (10:40)
--- NOTE | 2021-09-24 10:45 | CASEMGMT ---
RN CM Face to Face with , Emelia, for initial transition planning/care coordination assessment, as patient is confused. RN CM introduced self and role at [facility]. Patient lying in bed, agitated, at bedside. , Emelia, willing to participate in assessment and is able to answer all questions appropriately. Care providers, pharmacy, and demographics verified. wishes to discharge home if patient is able to ambulate, if not agreeable to SNF. CM will monitor progress with therapy. states she has no further needs or concerns at this time. CM to follow for discharge planning needs that may arise. PCP: Kasia Specialists: Marlen digital archivist; Jorden, oncologist Preferred Pharmacy: [facility] retail at discharge. Insurance: [employer] Prescription Benefit: yes Living Will/HPOA: none LNOK: Living Arrangements: Patient lives with in a single story home with 2 steps and railing to enter the home. Patient was independent prior to current illness Transportation: DME/HHC: patient has shower chair, raised toilet, cane, walker, grab bars, cpap, glucometer with testing supplies, and colostomy supplies. No previous HHC or SNF. Disposition Plan: SNF vs HHC pending course of treatment and progress with therapy. Steffany FERNANDEZ, RN, CM
[2021-09-24 11:06] LABS: Partial Thromboplast Time 225.8 Seconds (24.1-36.2)
[2021-09-24] MEDS: Haloperidol Lactate 5 MG/ML Vial 3 MG IV (11:35)
[2021-09-24 12:06] LABS: Bedside Glucose 103 mg/dL (70-110)
--- NOTE | 2021-09-24 13:01 | CON.PCM.CA_ITS ---
Assessment & Plan Assessment/Plan (1) Non-ST elevation [place] (NSTEMI): PLAN: Patient's troponin has come down from its peak. Patient is very confused and unable to follow instructions. He is not a candidate for cardiac c ath at this time. Continue medical treatment with heparin, aspirin, statin, beta-tian. Add Plavix. (2) Altered mental status: QUALIFIERS: Altered mental status type: unspecified Qualified Code(s): R41.82 - Altered mental status, unspecified PLAN: Unclear etiology. Could be related to his UTI. MO could cause confusion in elderly but his level of altered mental status appears to be out of proportion to his cardiac presentation. MRI of his brain has been ordered. HPI Consult Data Date of Consult: 09/24/21 HPI Narrative HPI Narrative: MITCH VEGA, is a 65 M who presents with altered mental status. He presented a few hours earlier to the emergency room with headache and right- sided chest pain. His blood pressure was severely elevated at the time. This was managed, CT brain without contrast was negative and patient was discharged home. Patient returned to the emergency room because of altered mental status. He was found to have a UTI. His first troponin was 29,000. He did not have EKG changes suggestive of a STEMI. He was started on a heparin drip. His subsequent troponin was 24,000 and then around 25,000. Patient had denied any significant chest pain. When I went to see the patient he was significantly confused and not following instructions. 3 people were holding him down as he had just pulled off his colostomy bag. Patient has significant medical history including coronary artery disease status post CABG (ZUNIGA to LAD and diagonal one, free KIMBERLYN to PDA, SVG to ramus, SVG to OM) in 2007 followed by drug-eluting stent to SVG to ramus in 2014, stress test in July 2021 revealing no significant evidence of ischemia and EF of 54%, cerebellar stroke, colon cancer status post colostomy, peripheral vascular disease, chronic right-sided chest pain, restrictive lung disease. Review of systems: Patient is unable to give review of systems due to altered mental status [facility] Medical History Anxiety disorder Arthritis 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 Cancer Cardiology follow-up encounter Carotid artery disease Colorectal cancer CPAP (continuous positive airway pressure) dependence CVA (cerebral vascular accident) Depression Diabetic neuropathy Dietary restriction Dyslipidemia Dysphagia Gastric reflux GERD (gastroesophageal reflux disease) High cholesterol History of echocardiogram History of heart attack History of pain when walking History of stress test HTN (hypertension) Injury of back Injury of head and neck 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 Leg cramps Loss of hearing Non-smoker Obstructive sleep apnea ALEJANDRO (obstructive sleep apnea) Peripheral vascular occlusive disease Restless legs Restrictive lung disease Shortness of breath on exertion Syncope Type 2 diabetes mellitus Walker as ambulation aid Wears glasses Home Medications aspirin 81 mg PO DAILY 03/20/16 [History Last Taken 09/23/21] duloxetine 60 mg PO DAILY 03/20/16 [History Last Taken 09/23/21] insulin lispro 100 unit/mL subcutaneous pen See Rx Instructions SC .COMPLEX #60 ml 04/02/18 [Rx Last Taken 09/22/21] omeprazole 40 mg PO DAILY 01/09/20 [History Last Taken 09/22/21] fluticasone propionate 50 mcg/actuation nasal spray,suspension 1 spray I NTRANASAL DAILY 12/17/20 [History Last Taken 09/22/21] gabapentin 300 mg capsule 300 mg PO DAILY 12/17/20 [History Last Taken 09/23/21] insulin detemir U-100 100 unit/mL (3 mL) subcutaneous pen 50 unit SC BID ml 12/17/20 [History Last Taken 09/22/21] lisinopril 2.5 mg tablet 2.5 mg PO DAILY 12/17/20 [History Last Taken 09/23/21] rosuvastatin 20 mg tablet 20 mg PO QHS #90 tab 02/23/21 [Rx Last Taken 09/22/21] multivitamin 1 tab PO DAILY 06/22/21 [History Last Taken 09/23/21] amlodipine [Norvasc] 5 mg PO DAILY #30 tab 09/23/21 [Rx Last Taken Unknown] lisinopril 5 mg PO DAILY #30 tab 09/23/21 [Rx Last Taken Unknown] Allergy/AdvReac Type Severity Reaction Status Date / Time No Known Allergies Allergy Verified 09/23/21 10:15 Family History Father CAD (coronary artery disease) Hypertension Cancer leukemia Diabetes Heart disease High cholesterol Mother CVA (cerebral vascular accident) Diabetes Breast cancer Brother Diabetes Surgical History Excision Max.Zygoma Face Tumor H/O coronary artery bypass surgery (05/30/08) History of cardiac catheterization History of coronary artery stent placement (01/02/15) History of herniorrhaphy History of right-sided carotid endarterectomy History of tonsillectomy PTCA Left Anterior Tibial and Paroneal Artery Social History Smoking Status: Never smoker alcohol intake: never substance use type: does not use caffeine: Yes what type of physical activity do you participate in: none Physical Exam Const Constitutional Narrative: Patient is confused and does not follow instructions HEENT normocephalic Resp normal respiratory effort Skin no rashes or lesions noted Risk Stratification Risk Stratification Applicable: No Charges/Coding Visit Charges Inpatient E&M: 08083 Init Hosp L2 Objective Data Vital Signs: Vital Signs Temp Pulse Resp BP Pulse Ox 98.3 F 85 18 144/69 H 94 09/24/21 08:05 09/24/21 08:05 09/24/21 08:05 09/24/21 08:05 09/24/21 08:05 Oxygen Flow Rate (L/min) 4 Oxygen Delivery Method Nasal Cannula Weight: 155 lb 10.342 oz Body Mass Index (BMI) 24.3 Intake & Output: Intake and Output for Last 24 Hours 09/22/21 09/23/21 09/24/21 23:59 23:59 23:59 Intake Total 983.33 / 983.33 Balance 983.33 / 983.33 Lab / Micro Data Result Diagrams: 09/24/21 07:23 09/24/21 07:23 Labs: Laboratory Results - last 24 hr 09/24/21 01:11: POC Glucose 148 H 09/24/21 01:15: WBC 6.5, RBC 4.47 L, Hgb 12.6 L, Hct 36.5 L, MCV 81.7, MCH 28.2, MCHC 34.5 D, RDW Std Deviation 42.8, RDW Coeff of Maia 14.5, Plt Count 248, MPV 8.9, Immature Gran % (Auto) 0.300, Neut % (Auto) 73.7 H, Lymph % (Auto) 14.3 L, [place] % (Auto) 11.3 H, Eos % (Auto) 0.2, Baso % (Auto) 0.2, Absolute Neuts (auto) 4.8, Absolute Lymphs (auto) 0.93, Nucleated RBC % 0 09/24/21 01:15: Sodium 138, Potassium 3.5, Chloride 102, Carbon Dioxide 27.0, Anion Gap 9, BUN 22 H, Creatinine 1.22, Estim Creat Clear Calc 57.94, Est GFR (MDRD) Af Amer 77, Est GFR (MDRD) Non-Af 64, BUN/Creatinine Ratio 18.0, Glucose 145 H, Calcium 8.9, Total Bilirubin 0.30, Direct Bilirubin 0.11, AST 153 H, ALT 47, Alkaline Phosphatase 106, Troponin I High Sens 70843 H*, Total Protein 7.2, Albumin 3.4, Globulin 3.8 09/24/21 01:15: PT 13.2, INR 1.1, APTT 53.9 H 09/24/21 01:33: Ammonia 32.0 09/24/21 02:25: Urine Color Yellow, Urine Clarity Sl. Cloudy, Urine pH 5.0, Ur Specific [place] 1.020, Urine Protein 100 H, Urine Glucose (UA) 250 H, Urine Ketones 5 H, Urine Occult Blood 25 H, Urine Nitrite Negative, Urine Bilirubin Negative, Urine Urobilinogen Normal, Ur Leukocyte Esterase 500 H, Urine RBC 0 SEEN, Urine WBC >100 SEEN, Ur Squamous Epith Cells 0 SEEN, Urine Bacteria 4+, Urine Mucus 0 SEEN 09/24/21 03:30: Troponin I High Sens 14149 H* 09/24/21 06:48: POC Glucose 95 09/24/21 07:23: WBC 7.5, RBC 4.49 L, Hgb 12.6 L, Hct 37.8 L, MCV 84.2, MCH 28.1, MCHC 33.3, RDW Std Deviation 44.8 H, RDW Coeff of Maia 14.6, Plt Count 227, MPV 8.9, Immature Gran % (Auto) 0.300, Neut % (Auto) 77.3 H, Lymph % (Auto) 10.3 L, [place]ferro % (Auto) 11.7 H, Eos % (Auto) 0.3, Baso % (Auto) 0.1, Absolute Neuts (auto) 5.8, Absolute Lymphs (auto) 0.77 L, Nucleated RBC % 0 09/24/21 07:23: Sodium 138, Potassium 3.5, Chloride 103, Carbon Dioxide 30.0, Anion Gap 5, BUN 17, Creatinine 0.91, Estim Creat Clear Calc 77.68, Est GFR (MDRD) Af Amer 108, Est GFR (MDRD) Non-Af 89, BUN/Creatinine Ratio 18.7, Glucose 86, Calcium 8.2 L, Total Bilirubin 0.30, AST 148 H, ALT 44, Alkaline Phosphatase 96, Troponin I High Sens 90255 H*, Total Protein 6.7, Albumin 3.2, Globulin 3.5, Albumin/Globulin Ratio 0.9 09/24/21 10:38: APTT 225.8 H* 09/24/21 11:38: POC Glucose 103 ABG Data ABG results: ABG 09/24/21 02:18 Specimen Type ART Sample Site R Radial pH 7.40 Bicarbonate Actual 28.6 H Total CO2 30 Base Excess 4 H O2 Saturation 85 L ABG pCO2 46.5 H ABG pO2 51 L [place] Test N/A O2 Delivery Device Cannula Liter Flow 4.0 Cardiology Labs/Tests 09/24/21 01:15: WBC 6.5, RBC 4.47 L, Hgb 12.6 L, Hct 36.5 L, MCV 81.7, MCH 28.2, MCHC 34.5 D, Plt Count 248, MPV 8.9, Immature Gran % (Auto) 0.300, Neut % (Auto) 73.7 H, Lymph % (Auto) 14.3 L, [place] % (Auto) 11.3 H, Eos % (Auto) 0.2, Baso % (Auto) 0.2, Absolute Neuts (auto) 4.8, Nucleated RBC % 0 09/24/21 01:15: Sodium 138, Potassium 3.5, Chloride 102, Carbon Dioxide 27.0, Anion Gap 9, BUN 22 H, Creatinine 1.22, Est GFR (MDRD) Af Amer 77, Est GFR (MDRD) Non-Af 64, BUN/Creatinine Ratio 18.0, Glucose 145 H, Calcium 8.9, Total Bilirubin 0.30, Direct Bilirubin 0.11 09/24/21 01:15: PT 13.2, INR 1.1, APTT 53.9 H 09/24/21 02:18: pH 7.40, Bicarbonate Actual 28.6 H, Base Excess 4 H, O2 Saturation 85 L, ABG pCO2 46.5 H, ABG pO2 51 L, [place] Test N/A 09/24/21 02:25: Urine Color Yellow, Urine Clarity Sl. Cloudy, Urine pH 5.0, Ur Specific [place] 1.020, Urine Protein 100 H, Urine Glucose (UA) 250 H, Urine Ketones 5 H, Urine Occult Blood 25 H, Urine Nitrite Negative, Urine Bilirubin Negative, Urine Urobilinogen Normal, Ur Leukocyte Esterase 500 H, Urine RBC 0 SEEN, Urine WBC >100 SEEN 09/24/21 07:23: WBC 7.5, RBC 4.49 L, Hgb 12.6 L, Hct 37.8 L, MCV 84.2, MCH 28.1, MCHC 33.3, Plt Count 227, MPV 8.9, Immature Gran % (Auto) 0.300, Neut % (Auto) 77.3 H, Lymph % (Auto) 10.3 L, Taliaferro % (Auto) 11.7 H, Eos % (Auto) 0.3, Baso % (Auto) 0.1, Absolute Neuts (auto) 5.8, Nucleated RBC % 0 09/24/21 07:23: Sodium 138, Potassium 3.5, Chloride 103, Carbon Dioxide 30.0, Anion Gap 5, BUN 17, Creatinine 0.91, Est GFR (MDRD) Af Amer 108, Est GFR (MDRD) Non-Af 89, BUN/Creatinine Ratio 18.7, Glucose 86, Calcium 8.2 L, Total Bilirubin 0.30 09/24/21 10:38: APTT 225.8 H* Rhythm: EKG: ECHO: Stress Test: Cardiac Cath: PCI: CT Surgery: Holter monitor: EPS: PPM: CXR: Chest CT Scan: Radiography Diagnostic Testing: Radiology Impression Chest CTA 09/24/21 01:20 IMPRESSION: No acute finding the chest with no evidence of pulmonary embolism. Chronic findings as above. Electronically Signed: Maykel Quigley MD at 3:40 EST , Head/Neck CTA 09/24/21 01:20 IMPRESSION: 1. Intact [place] of [place] 2. Significant atherosclerotic disease in the bilateral carotid siphons with mild stenosis 3. Significant atherosclerotic disease with intimal wall thickening of the right carotid bulb with roughly 50% stenosis. Likely prior right carotid endarterectomy 4. Areas of occlusion of the right vertebral artery with reconstitution of flow distally. Normal left vertebral artery and posterior circulation. Likely chronic in nature. Electronically Signed: Santiago Babin DO at 3:45 EST ,
--- NOTE | 2021-09-24 13:15 | WOUNDNOTE ---
Was asked by nursing to see patient d/t patient pulling off ostomy appliance. Pt is known to this nurse from a prior visit. patient has had a colostomy for approx 1 year. states patient has been changing the appliances himself at home. patient has become more confused in the last few days so brought patient to the ED. patient was admitted to PCU early this am. patient has had a stomal prolapse for some time now. it is currently out approx 3inches. stoma remains beefy red. slightly edematous. stoma is moist. states patient does not c/o pain at the stoma site. patient has a mild peristomal hernia. also states that this does not cause too much of a problem. patient does have a hernia belt that patient wears when he goes out. cleansed the skin with warm water. pat dry. applied a new 2 piece [place] appliance with a small amount of stoma paste. applied a stoma belt. also applied an abdominal binder loosely to prevent patient from pulling at the appliance. will follow as needed. denies further needs at this time.
--- NOTE | 2021-09-24 14:00 | PCM.HOSP.N ---
Documented by User: Johan PARK 09/24/21 14:08 Hospitalist Note Patient is a 65-year-old male who was admitted on the morning of 09/24/2021 for evaluation and management of confusion with concern for stroke, as patient does have a CVA history. In the ED it was noted that patient did have elevated troponins of more than 29,000, for which cardiology had been consulted. On my evaluation this morning patient was still very confused, agitated and not able to follow commands. Due to patient agitation, MRI was delayed until the afternoon. As needed Haldol and Ativan ordered for patient agitation. Currently awaiting MRI results. Cardiology did evaluate patient and determined that given his severe agitation, patient was not a candidate for cardiac catheterization. Recommendations are to rule out stroke via MRI, continue current medical management and add Plavix. Patient seen by Johan La PA-C, under the supervision of Dr. Rodriguez. Time spent on patient care: 10 minutes. Documented by User: Dr. Oliver Rodriguez MD 09/24/21 16:55 Addendum Addendum: Dr. Rodriguez: I personally reviewed the chart and examined the patient, and agree with the above findings. 65-year-old male with a previous history of a stroke presented to the hospital with confusion and agitation. He had a headache yesterday and was sent home after improvement in his blood pressure led to the resolution of his headache and he felt he can go home. This morning his mental status was stable however in the later morning he became severely agitated and removed his colostomy appliance. To be given multiple doses of Haldol and Ativan to undergo MRI which was negative for stroke. Unfortunately could not go for his heart cath secondary to his agitation today. There is a possibility that given his UTI and his previous history of a stroke that this could be causing his confusion delirium. We will continue with Rocephin await culture results.
[2021-09-24] MEDS: LORazepam 2 MG/ML Syringe 1 MG IV ×2 (14:38→21:00)
--- NOTE | 2021-09-24 15:10 | NURSING ---
RASHI Armendariz and [employer] SCRAP DROP OPERATOR brought pt to MRI after pt received IV Ativan. Pt remains extremely aggitated with periods of stillness lasting only a few short moments. Even during moments of stillness pt will not lay head appropriately in MRI coil. Pt is not combative, but restless. Oniel,PCU cupola melter helper made aware, Dr. Rodriguez paged and 2mg IV Haldol ordered.
[2021-09-24] MEDS: Haloperidol Lactate 5 MG/ML Vial 2 MG IV (15:18)
--- NOTE | 2021-09-24 16:15 | NURSING ---
1025: This nurse went into patients room to find patient very confused and attempting to get out of bed. Oniel duenas RN also came to bedside. Johan PARK also came to bedside. Ativan 0.5 IV X 1 ordered and given. Patient calmed down for about 15 minutes following dose however quickly became agitated again. Several nurses and automatic toe laster had to stop patient from ripping out cords/lines. Johan La came back to bedside and Haldol 1mg IV ordered and given. Dose was not effective as patient continued to be confused and agitated. Dr. Rodriguez came to bedside and an additional 3mg Haldol IV ordered and given at 1135. Vitals checked and stable, glucose stable. Patient scheduled for a MRI at 1430. Dr. Askew came to bedside at 1200, decision made to put heart cath on hold and to treat [place] medically at this time.
[2021-09-24 17:56] LABS: Bedside Glucose 113 mg/dL (70-110)
[2021-09-24 20:41] LABS: Partial Thromboplast Time 64.1 Seconds (24.1-36.2)
[2021-09-25] VITALS (22 sets, daily range): BP systolic 118–187; BP diastolic 55–93; PULSE 88–128; RESP 14–28; TEMP 36.6–39.4; O2SAT 65–99
[2021-09-25] MEDS: Insulin Lispro 100 UNIT/ML INSULN.PEN SC ×5 (00:39→22:56)
[2021-09-25 01:02] LABS: Bedside Glucose 175 mg/dL (70-110)
[2021-09-25 01:54] LABS: Absolute Lymphocyte Count 1.22 X10^3/uL (0.83-4.51); Absolute Neutrophil Count 8.9 X10^3/uL (2.0-7.7); Basophil# 0.02 X10^3/uL; Basophil% 0.2 % (0-1); Hematocrit 39.1 % (40-54); Hemoglobin 12.9 g/dL (13.0-16.5); Lymphocyte # 1.22 X10^3/ul (0.83-4.51); Lymphocyte % 10.9 % (19-41); Mean Corpuscular Hgb 28.2 pg (27.0-32.0); Mean Corpuscular Volume 85.6 fL (80-94); Monocyte# 1.05 X10^3/uL; Monocyte% 9.3 % (0-10); NRBC Flagged by Analyzer 0 % (0-5); Neutrophil # 8.91 X10^3/uL (2.7-7.7); Neutrophil % 79.3 % (47-70); Platelet Count 259 K/mm3 (150-450); RBC Distribution Width CV 15.2 % (11.6-14.6); RBC Distribution Width SD 47.4 fl (35.1-43.9); Red Blood Count 4.57 M/mm3 (4.6-6.2); White Blood Count 11.2 K/mm3 (4.4-11.0)
[2021-09-25 02:06] LABS: Partial Thromboplast Time 75.2 Seconds (24.1-36.2)
[2021-09-25 02:07] LABS: Anion Gap 11 (5-15); BUN 22 mg/dL (7-18); BUN/Creat Ratio 19.5 RATIO (10-20); Calcium,Total 8.1 mg/dL (8.5-10.1); Chloride 104 mmol/L (98-107); Creatinine, Serum 1.13 mg/dL (0.70-1.30); EST Glomerular Filtration Rate 70 mL/min (>60); Est Glom Filt Rate - Afr Amer 84 mL/min (>60); Estimated Creatinine Clearance 62.56 ml/min; Glucose 190 mg/dL (74-106); Potassium 4.1 mmol/L (3.5-5.1); Sodium Level 138 mmol/L (136-145)
--- NOTE | 2021-09-25 02:20 | RAD_ITS ---
EXAM: XR CHEST, 1 VIEW : 1955 CLINICAL INDICATION: SOB TECHNIQUE: Frontal view of the chest. This report was created using [employer] [place] report generation technology. COMPARISON: 09/23/21 FINDINGS: LUNGS AND PLEURAL SPACES: Patchy bilateral airspace disease developing since the previous exam. No pneumothorax. No effusion. HEART: Unremarkable. Cardiac silhouette not enlarged. MEDIASTINUM: Surgical changes of the mediastinum. BONES/JOINTS: Unremarkable. SOFT TISSUES: Unremarkable. RAD/Chest 1 View (Portable) IMPRESSION: Patchy bilateral airspace disease developing since the previous exam. Findings may indicate pneumonia. at 0337 Reported and signed by: Alexis Sánchez MD Electronically Signed: Alexis Sánchez MD at 3:37 EST ,
[2021-09-25] MEDS: Furosemide 40 MG/4 ML Vial IV ×2 (02:25→11:22)
[2021-09-25 05:50] LABS: Bedside Glucose 256 mg/dL (70-110)
[2021-09-25] MEDS: hydrALAZINE 20 MG/ML Vial 5 MG IV (06:10)
[2021-09-25 08:11] LABS: Base Excess -4 mmol/L (-2 to +2); Bicarbonate 19.6 mmol/L (22-26); Blood Gas Specimen Type ART; O2 Delivery Device Cannula; PO2 52 mmHG (75-100); SITE R Radial; SO2 89 % (95-99); Total Carbon Dioxide 21 mmol/L; pCO2 28.2 mmHg (35-45); pH 7.45 (7.35-7.45)
[2021-09-25] MEDS: Acetaminophen 325 MG Tablet 650 MG PO (08:25)
[2021-09-25] MEDS: Aspirin 81 MG TAB.CHEW PO (08:26)
[2021-09-25 08:51] LABS: Partial Thromboplast Time 66.9 Seconds (24.1-36.2)
[2021-09-25] MEDS: 0.9% Saline Lock 10 ML Syringe IV ×2 (11:23→21:58)
--- NOTE | 2021-09-25 12:01 | PN.HOSP_ITS ---
Documented by User: Johan PARK 09/25/21 12:22 Subjective Subjective Patient is a 65-year-old male lying in bed, not alert and oriented. Patient agitation has improved from yesterday with as needed Haldol and Ativan, although this has patient heavily sedated and not able to provide any insight into his confusion. Vital signs elevated with tachycardia, tachypnea, high supplemental oxygen needs and a fever. Objective Data Objective Data Vital Signs: Vital Signs Temp Pulse Resp BP Pulse Ox 99.6 F H 91 14 142/78 H 98 09/25/21 11:00 09/25/21 11:00 09/25/21 11:00 09/25/21 11:00 09/25/21 11:00 Oxygen Flow Rate (L/min) 15 Oxygen Delivery Method High Flow Weight: 157 lb 10.088 oz Body Mass Index (BMI) 24.3 Intake & Output: Intake and Output for Last 24 Hours 09/23/21 09/24/21 09/25/21 23:59 23:59 23:59 Intake Total 2953.33 / 2953.33 569.63 / 569.63 Output Total 250 / 400 1800 / 1800 Balance 2703.33 / 2553.33 -1230.37 / -1230.37 Lab / Micro Data Result Diagrams: 09/25/21 01:47 09/25/21 01:47 Labs: Laboratory Results - last 24 hr 09/24/21 11:38: POC Glucose 103 09/24/21 17:47: POC Glucose 113 H 09/24/21 19:34: APTT 64.1 H 09/25/21 00:34: POC Glucose 175 H 09/25/21 01:47: WBC 11.2 H, RBC 4.57 L, Hgb 12.9 L, Hct 39.1 L, MCV 85.6, MCH 28.2, MCHC 33.0, RDW Std Deviation 47.4 H, RDW Coeff of Maia 15.2 H, Plt Count 259, MPV 9.0, Immature Gran % (Auto) 0.300, Neut % (Auto) 79.3 H, Lymph % (Auto) 10.9 L, [place] % (Auto) 9.3, Eos % (Auto) 0.0, Baso % (Auto) 0.2, Absolute Neuts (auto) 8.9 H, Absolute Lymphs (auto) 1.22, Nucleated RBC % 0 09/25/21 01:47: Sodium 138, Potassium 4.1, Chloride 104, Carbon Dioxide 23.0, Anion Gap 11, BUN 22 H, Creatinine 1.13, Estim Creat Clear Calc 62.56, Est GFR (MDRD) Af Amer 84, Est GFR (MDRD) Non-Af 70, BUN/Creatinine Ratio 19.5, Glucose 190 H, Calcium 8.1 L 09/25/21 01:47: APTT 75.2 H 09/25/21 05:45: POC Glucose 256 H 09/25/21 07:50: APTT 66.9 H Micro: Microbiology 09/24/21 02:25 Urine, Catheterized Urine Culture - Preliminary Presumptive E. coli 09/25/21 08:00 Sputum, Induced/Lukens Gram Stain - Final ABG Data ABG results: ABG 09/25/21 08:05 Specimen Type ART Sample Site R Radial pH 7.45 Bicarbonate Actual 19.6 L Total CO2 21 Base Excess -4 L O2 Saturation 89 L ABG pCO2 28.2 L ABG pO2 52 L O2 Delivery Device Cannula Liter Flow 2.0 Radiography Diagnostic Testing: Radiology Impression Brain MRI 09/24/21 06:25 IMPRESSION: Involutional changes of the brain, as described above. No acute infarct. Electronically Signed: Flash Mcintyre MD at 16:33 EST , Chest X-Ray 09/25/21 02:20 IMPRESSION: Patchy bilateral airspace disease developing since the previous exam. Findings may indicate pneumonia. at 0337 Reported and signed by: Alexis Sánchez MD Electronically Signed: Alexis Sánchez MD at 3:37 EST , Physical Exam Const Orientation / Consciousness: confused, disoriented and lethargic HEENT head/scalp atraumatic and moist oral mucous membranes Head and Scalp: normocephalic Eyes PERRL Neck no lymphadenopathy, supple and no JVD Resp Resp Narrative: Currently satting at 98% on 15 L via high flow O2. Effort and Inspection: tachypneic, respiratory distress and labored Auscultation: wheezes Cardio regular rhythm and no JVD Rate: tachycardic GI normal to inspection, nondistended, normoactive bowel sounds Extremity normal to inspection Skin no rashes or lesions noted Neuro Neuro Narrative: Unable to assess. Psych Psych Narrative: Unable to assess. Assessment & Plan Assessment/Plan (1) Altered mental status: QUALIFIERS: Altered mental status type: unspecified Qualified Code(s): R41.82 - Altered mental status, unspecified (2) Non-ST elevation [place] (NSTEMI): (3) UTI (urinary tract infection): QUALIFIERS: Hematuria presence: without hematuria Urinary tract infection type: acute cystitis Qualified Code(s): N30.00 - Acute cystitis without hematuria (4) Hypoxia: PLAN: Day 1 Discharge planning: To be determined. 1) metabolic encephalopathy Stroke ruled out, brain MRI did not demonstrate any acute infarct or ischemia. Unable to assess patient confusion, as he is still heavily sedated due to agitation seen on 09/24. Believe patient's encephalopathy be to be metabolic in nature, although unclear if primary source is UTI, pneumonia or both. Updated chest x-ray demonstrates worsening bilateral airspace disease possibly indicative of pneumonia. UA abnormal, urine culture preliminarily grew E. coli. Blood cultures pending. We will continue broad-spectrum antibiotics with vancomycin and Zosyn and await cultures for sensitivities and speciation. 2) Acute hypoxic respiratory failure Likely related to pneumonia. Currently satting 98% on high flow O2 at 15 L. ABG shows a pH of 7.45, PCO2 28.2 and O2 at 52. Will obtain second ABG at noon, continue antibiotics and await cultures as above. 3) acute NSTEMI High-sensitivity troponins elevated throughout at 29,000, 24,000 and 58144, respectively. Was assessed by cardiology on 09/24, and was deemed not appropriate for cardiac catheterization due to agitation. Recommendations are to continue with heparin, aspirin, Plavix, statin and beta-tian. Cardiology will continue to follow. 4) DM2 Accu-Cheks are sliding scale insulin ordered. DVT prophylaxis -prophylaxis not indicated as patient is on heparin drip Patient seen by Johan La PA-C, under the supervision of Dr. Rodriguez. Time spent on patient care: 12 minutes. Documented by User: Dr. Oliver Rodriguez MD 09/25/21 15:44 Objective Data Lab / Micro Data Result Diagrams: 09/25/21 01:47 09/25/21 01:47 Charges/Coding Addendum Addendum: Dr. Rodriguez: I personally reviewed the chart and examined the patient, and agree with the above findings. 65-year-old male with a previous history of a stroke presented to the hospital with confusion and agitation. He had a headache yesterday and was sent home after improvement in his blood pressure led to the resolution of his headache and he felt he can go home. This morning his mental status was stable however in the later morning he became severely agitated and removed his colostomy appliance. To be given multiple doses of Haldol and Ativan to undergo MRI which was negative for stroke. Unfortunately could not go for his heart cath secondary to his agitation today. There is a possibility that given his UTI and his previous history of a stroke that this could be causing his confusion delirium. We will continue with Rocephin await culture results. 09/25/2021: Still confused but seems a lot better now that his temperature is getting under control. We will broaden his antibiotics to vancomycin and Zosyn. MRI is unremarkable, awaiting for the echo to come back today, it has not been read yet by cardiology. He did receive some Lasix overnight secondary to his increased oxygen requirement and continue him some more Lasix today as he still requiring 15 L high flow. Appreciate cardiology's assistance. Continue with the heparin drip for his non-STEMI. UTI with a presumptive E. coli greater than 100,000 CFU. Clinical time spent in all aspects of patient care: 20 minutes Visit Charges Inpatient E&M: 87056 Subs Hosp L2
[2021-09-25 13:11] LABS: Bedside Glucose 273 mg/dL (70-110)
--- NOTE | 2021-09-25 14:34 | PCM.PN.CARD ---
Subjective Subjective Patient's mental status is significantly better today compared to yesterday. He is oriented x3. He denies any chest pain or shortness of breath. Objective Data Vital Signs: Vital Signs Temp Pulse Resp BP Pulse Ox 99.6 F H 91 14 142/78 H 98 09/25/21 11:00 09/25/21 11:00 09/25/21 11:00 09/25/21 11:00 09/25/21 11:00 Oxygen Flow Rate (L/min) 15 Oxygen Delivery Method High Flow Weight: 157 lb 10.088 oz Body Mass Index (BMI) 24.3 Intake & Output: Intake and Output for Last 24 Hours 09/23/21 09/24/21 09/25/21 23:59 23:59 23:59 Intake Total 2953.33 / 2953.33 569.63 / 569.63 Output Total 250 / 400 1800 / 1800 Balance 2703.33 / 2553.33 -1230.37 / -1230.37 Lab / Micro Data Result Diagrams: 09/25/21 01:47 09/25/21 01:47 Labs: Laboratory Results - last 24 hr 09/24/21 17:47: POC Glucose 113 H 09/24/21 19:34: APTT 64.1 H 09/25/21 00:34: POC Glucose 175 H 09/25/21 01:47: WBC 11.2 H, RBC 4.57 L, Hgb 12.9 L, Hct 39.1 L, MCV 85.6, MCH 28.2, MCHC 33.0, RDW Std Deviation 47.4 H, RDW Coeff of Maia 15.2 H, Plt Count 259, MPV 9.0, Immature Gran % (Auto) 0.300, Neut % (Auto) 79.3 H, Lymph % (Auto) 10.9 L, Mill[place] % (Auto) 9.3, Eos % (Auto) 0.0, Baso % (Auto) 0.2, Absolute Neuts (auto) 8.9 H, Absolute Lymphs (auto) 1.22, Nucleated RBC % 0 09/25/21 01:47: Sodium 138, Potassium 4.1, Chloride 104, Carbon Dioxide 23.0, Anion Gap 11, BUN 22 H, Creatinine 1.13, Estim Creat Clear Calc 62.56, Est GFR (MDRD) Af Amer 84, Est GFR (MDRD) Non-Af 70, BUN/Creatinine Ratio 19.5, Glucose 190 H, Calcium 8.1 L 09/25/21 01:47: APTT 75.2 H 09/25/21 05:45: POC Glucose 256 H 09/25/21 07:50: APTT 66.9 H 09/25/21 11:18: POC Glucose 273 H Micro: Microbiology 09/24/21 02:25 Urine, Catheterized Urine Culture - Preliminary Presumptive E. coli 09/25/21 08:00 Sputum, Induced/Lukens Gram Stain - Final ABG Data ABG results: ABG 09/25/21 08:05 Specimen Type ART Sample Site R Radial pH 7.45 Bicarbonate Actual 19.6 L Total CO2 21 Base Excess -4 L O2 Saturation 89 L ABG pCO2 28.2 L ABG pO2 52 L O2 Delivery Device Cannula Liter Flow 2.0 Cardiology Labs/Tests 09/24/21 19:34: APTT 64.1 H 09/25/21 01:47: WBC 11.2 H, RBC 4.57 L, Hgb 12.9 L, Hct 39.1 L, MCV 85.6, MCH 28.2, MCHC 33.0, Plt Count 259, MPV 9.0, Immature Gran % (Auto) 0.300, Neut % (Auto) 79.3 H, Lymph % (Auto) 10.9 L, Mill[place] % (Auto) 9.3, Eos % (Auto) 0.0, Baso % (Auto) 0.2, Absolute Neuts (auto) 8.9 H, Nucleated RBC % 0 09/25/21 01:47: Sodium 138, Potassium 4.1, Chloride 104, Carbon Dioxide 23.0, Anion Gap 11, BUN 22 H, Creatinine 1.13, Est GFR (MDRD) Af Amer 84, Est GFR (MDRD) Non-Af 70, BUN/Creatinine Ratio 19.5, Glucose 190 H, Calcium 8.1 L 09/25/21 01:47: APTT 75.2 H 09/25/21 07:50: APTT 66.9 H 09/25/21 08:05: pH 7.45, Bicarbonate Actual 19.6 L, Base Excess -4 L, O2 Saturation 89 L, ABG pCO2 28.2 L, ABG pO2 52 L Rhythm: EKG: ECHO: Stress Test: Cardiac Cath: PCI: CT Surgery: Holter monitor: EPS: PPM: CXR: Chest CT Scan: Radiography Diagnostic Testing: Radiology Impression Brain MRI 09/24/21 06:25 IMPRESSION: Involutional changes of the brain, as described above. No acute infarct. Electronically Signed: Flash Mcintyre MD at 16:33 EST , Chest X-Ray 09/25/21 02:20 IMPRESSION: Patchy bilateral airspace disease developing since the previous exam. Findings may indicate pneumonia. at 0337 Reported and signed by: Alexis Sánchez MD Electronically Signed: Alexis Sánchez MD at 3:37 EST , Physical Exam Const oriented x3 Constitutional Narrative: Drowsy, arousable HEENT normocephalic Neck supple Resp normal respiratory effort Assessment & Plan Assessment/Plan (1) Non-ST elevation [place] (NSTEMI): PLAN: Patient does not have any chest pain. Continue medical treatment. Preserved EF. Patient does have grade 2 diastolic dysfunction. Agree with Lasix as needed. In view of patient's overall condition, multiple medical problems and lack of anginal symptoms it will be reasonable to continue just medical management for his non-STEMI without invasive work-up. Charges/Coding Visit Charges Inpatient E&M: 90257 Subs Hosp L2
[2021-09-25 16:40] LABS: Bedside Glucose 257 mg/dL (70-110)
[2021-09-25 18:16] LABS: Bedside Glucose 266 mg/dL (70-110)
--- NOTE | 2021-09-25 18:50 | CPS ---
Pt set up on own BIPAP with O2 bleed in of 10 lpm
--- NOTE | 2021-09-25 19:40 | PCM.RX.CS ---
Consult Pharmacy has been consulted to manage selected antiobiotic: Vancomycin Type of Consult: New start Suspected Infection: Other Prior Doses of Antibiotics Received/Current Regimen: Medications Vancomycin HCl 750 mg/ Sodium (Chloride) 265 mls @ 250 mls/hr IV Q12H JENNI Discontinued Medications Vancomycin HCl 1,750 mg/ (Sodium Chloride) 535 mls @ 250 mls/hr IV x1 loading dose. Last Admin: 09/25/21 11:14 Dose: Infused Labs: Sodium 138 mmol/L (136-145) 09/25/21 01:47 Potassium 4.1 mmol/L (3.5-5.1) 09/25/21 01:47 Chloride 104 mmol/L (98-107) 09/25/21 01:47 Carbon Dioxide 23.0 mmol/L (21.0-32.0) 09/25/21 01:47 Anion Gap 11 (5-15) 09/25/21 01:47 BUN 22 mg/dL (7-18) H 09/25/21 01:47 Creatinine 1.13 mg/dL (0.70-1.30) 09/25/21 01:47 Est GFR (MDRD) Af Amer 84 mL/min (>60) 09/25/21 01:47 Est GFR (MDRD) Non-Af 70 mL/min (>60) 09/25/21 01:47 BUN/Creatinine Ratio 19.5 RATIO (10-20) 09/25/21 01:47 Glucose 190 mg/dL (74-106) H 09/25/21 01:47 Microbiology: Microbiology 09/24/21 02:25 Urine, Catheterized Urine Culture - Preliminary Presumptive E. coli 09/25/21 08:00 Sputum, Induced/Lukens Gram Stain - Final Weight used for dosin.5 kg Estimated Creatinine Clearance: 62.6 Goal Trough: 15-20 mcg/mL Pharmacy Plan for Drug Dosing: A 1750mg vancomycin loading dose was given 09/25/21 @1114. Continuing dose will be 750mg q12h, and a trough will be drawn prior to the 4th total dose. Pharmacy Service will continue to monitor and adjust dosing as required. Follow-Up Labs: Trough Vancomycin Labs to be done on [date and time ordered]: 09/26/21 @8561
[2021-09-25 23:31] LABS: Bedside Glucose 233 mg/dL (70-110)
[2021-09-26] VITALS (17 sets, daily range): BP systolic 127–166; BP diastolic 66–85; PULSE 88–107; RESP 12–21; TEMP 36.8–37.7; O2SAT 84–96
[2021-09-26] MEDS: Insulin Lispro 100 UNIT/ML INSULN.PEN SC ×4 (05:38→22:09)
[2021-09-26 05:56] LABS: Bedside Glucose 279 mg/dL (70-110)
[2021-09-26 06:53] LABS: Absolute Lymphocyte Count 0.64 X10^3/uL (0.83-4.51); Absolute Neutrophil Count 7.1 X10^3/uL (2.0-7.7); Basophil# 0.02 X10^3/uL; Basophil% 0.2 % (0-1); Eosinophil# 0.02 X10^3/uL; Eosinophils% 0.2 % (0-5); Hematocrit 35.9 % (40-54); Hemoglobin 11.7 g/dL (13.0-16.5); Lymphocyte # 0.64 X10^3/ul (0.83-4.51); Lymphocyte % 7.4 % (19-41); Mean Corp Hgb Conc 32.6 g/dL (32-36); Mean Corpuscular Hgb 27.5 pg (27.0-32.0); Mean Corpuscular Volume 84.3 fL (80-94); Mean Platelet Vol. 9.7 fl (6.2-12.0); Monocyte# 0.82 X10^3/uL; Monocyte% 9.5 % (0-10); NRBC Flagged by Analyzer 0 % (0-5); Neutrophil # 7.12 X10^3/uL (2.7-7.7); Neutrophil % 82.1 % (47-70); Platelet Count 224 K/mm3 (150-450); RBC Distribution Width CV 15.2 % (11.6-14.6); RBC Distribution Width SD 46.2 fl (35.1-43.9); Red Blood Count 4.26 M/mm3 (4.6-6.2); White Blood Count 8.7 K/mm3 (4.4-11.0)
[2021-09-26 07:12] LABS: Partial Thromboplast Time 69.6 Seconds (24.1-36.2)
[2021-09-26 07:41] LABS: Anion Gap 10 (5-15); BUN 20 mg/dL (7-18); BUN/Creat Ratio 19.2 RATIO (10-20); Calcium,Total 8.7 mg/dL (8.5-10.1); Chloride 99 mmol/L (98-107); Creatinine, Serum 1.04 mg/dL (0.70-1.30); EST Glomerular Filtration Rate 77 mL/min (>60); Est Glom Filt Rate - Afr Amer 93 mL/min (>60); Estimated Creatinine Clearance 67.97 ml/min; Glucose 270 mg/dL (74-106); Potassium 3.7 mmol/L (3.5-5.1); Sodium Level 136 mmol/L (136-145)
[2021-09-26] MEDS: Aspirin 81 MG TAB.CHEW PO (08:49)
[2021-09-26] MEDS: Clopidogrel Bisulfate 75 MG Tablet PO (08:49)
[2021-09-26] MEDS: Carvedilol 3.125 MG TABLET PO ×2 (08:49→19:43)
--- NOTE | 2021-09-26 10:50 | PN.HOSP_ITS ---
Documented by User: Johan PARK 09/26/21 10:59 Subjective Subjective Patient is a 65-year-old male comfortably resting in a chair, alert and orient x3. Patient condition has greatly improved from yesterday as his confusion has seemed to have resolved and he is no longer agitated or requiring heavy nemo tion. Denies any complaints and does not appear in acute distress. Objective Data Objective Data Vital Signs: Vital Signs Temp Pulse Resp BP Pulse Ox 99.3 F H 92 16 127/66 H 94 09/26/21 10:24 09/26/21 10:24 09/26/21 10:24 09/26/21 10:24 09/26/21 10:24 Oxygen Flow Rate (L/min) 10 Oxygen Delivery Method High Flow Weight: 154 lb 12.232 oz Body Mass Index (BMI) 24.3 Intake & Output: Intake and Output for Last 24 Hours 09/24/21 09/25/21 09/26/21 23:59 23:59 23:59 Intake Total 2953.33 / 2953.33 1438.68 / 1878.68 490 / 490 Output Total 250 / 400 2050 / 2300 450 / 450 Balance 2703.33 / 2553.33 -611.32 / -421.32 40 / 40 Lab / Micro Data Result Diagrams: 09/26/21 06:00 09/26/21 06:00 Labs: Laboratory Results - last 24 hr 09/25/21 11:18: POC Glucose 273 H 09/25/21 16:15: POC Glucose 257 H 09/25/21 18:08: POC Glucose 266 H 09/25/21 22:54: POC Glucose 233 H 09/26/21 05:38: POC Glucose 279 H 09/26/21 06:00: WBC 8.7, RBC 4.26 L, Hgb 11.7 L, Hct 35.9 L, MCV 84.3, MCH 27.5, MCHC 32.6, RDW Std Deviation 46.2 H, RDW Coeff of Maia 15.2 H, Plt Count 224, MPV 9.7, Immature Gran % (Auto) 0.600, Neut % (Auto) 82.1 H, Lymph % (Auto) 7.4 L, [place] % (Auto) 9.5, Eos % (Auto) 0.2, Baso % (Auto) 0.2, Absolute Neuts (auto) 7.1, Absolute Lymphs (auto) 0.64 L, Nucleated RBC % 0 09/26/21 06:00: Sodium 136, Potassium 3.7, Chloride 99, Carbon Dioxide 27.0, Ani on Gap 10, BUN 20 H, Creatinine 1.04, Estim Creat Clear Calc 67.97, Est GFR ( MDRD) Af Amer 93, Est GFR (MDRD) Non-Af 77, BUN/Creatinine Ratio 19.2, Glucose 270 H, Calcium 8.7 09/26/21 06:00: APTT 69.6 H Micro: Microbiology 09/24/21 02:25 Urine, Catheterized Urine Culture - Final Presumptive E. coli 09/25/21 08:00 Sputum, Induced/Lukens Gram Stain - Final Physical Exam Const alert, oriented x3 and no apparent distress HEENT head/scalp atraumatic and moist oral mucous membranes Head and Scalp: normocephalic Eyes PERRL, EOMs intact bilaterally and conjunctivae normal Neck no lymphadenopathy, supple and no JVD Resp normal respiratory effort, no retractions and no use of accessory muscles Cardio regular rate, regular rhythm and no JVD GI normal to inspection, nondistended, normoactive bowel sounds Extremity normal to inspection Skin no rashes or lesions noted Neuro CN's II-XII intact bilaterally Psych affect normal Assessment & Plan Assessment/Plan (1) Altered mental status: QUALIFIERS: Altered mental status type: unspecified Qualified Code(s): R41.82 - Altered mental status, unspecified (2) Non-ST elevation [place] (NSTEMI): (3) UTI (urinary tract infection): QUALIFIERS: Hematuria presence: without hematuria Urinary tract infection type: acute cystitis Qualified Code(s): N30.00 - Acute cystitis wit hout hematuria PLAN: Day 2 Discharge planning: To be determined. 1) metabolic encephalopathy Resolved, patient is not confused or agitated and is appropriately alert and oriented. Believe patient's encephalopathy be to be metabolic in nature, although unclear if primary source is UTI, pneumonia or both. Stroke ruled out, brain MRI did not demonstrate any acute infarct or ischemia. Updated chest x- ray demonstrates worsening bilateral airspace disease possibly indicative of pneumonia. UA abnormal, urine culture preliminarily grew E. coli. Blood and sputum cultures pending. We will continue broad-spectrum antibiotics with vancomycin and Zosyn and await cultures for sensitivities and speciation. 2) UTI Urine culture demonstrated E. coli.UA with yellow cloudy urine, negative nitrites, 500 leukocyte esterase, greater than 100 urine WBCs seen, 4+ bacteria. Plan as above. 2) Acute hypoxic respiratory failure Improved from yesterday. Currently satting 9% on high flow O2 at 10 L. Likely related to pneumonia. Updated chest x-ray demonstrates worsening bilateral airspace disease possibly indicative of pneumonia. ABG shows a pH of 7.45, PCO2 28.2 and O2 at 52. Plan as above. 3) acute NSTEMI High-sensitivity troponins elevated throughout at 29,000, 24,000 and 03653, respectively. Was assessed by cardiology on 09/24, and was deemed not appropriate for cardiac catheterization due to agitation. Recommendations are to continue with heparin, aspirin, Plavix, statin and beta-tian. Cardiology will continue to follow. 4) DM2 Accu-Cheks are sliding scale insulin ordered. DVT prophylaxis -prophylaxis not indicated as patient is on heparin drip Patient seen by Johan La PA-C, under the supervision of Dr. Rodriguez. Time spent on patient care: 9 minutes. Documented by User: Dr. Oliver Rodriguez MD 09/26/21 13:44 Objective Data Lab / Micro Data Result Diagrams: 09/26/21 06:00 09/26/21 06:00 Charges/Coding Addendum Addendum: Dr. Rodriguez: I personally reviewed the chart and examined the patient, and agree with the above findings. 65-year-old male with a previous history of a stroke presented to the hospital with confusion and agitation. He had a headache yesterday and was sent home after improvement in his blood pressure led to the resolution of his headache and he felt he can go home. This morning his mental status was stable however in the later morning he became severely agitated and removed his colostomy appliance. To be given multiple doses of Haldol and Ativan to undergo MRI which was negative for stroke. Unfortunately could not go for his heart cath secondary to his agitation today. There is a possibility that given his UTI and his previous history of a stroke that this could be causing his confusion delirium. We will continue with Rocephin await culture results. 09/25/2021: Still confused but seems a lot better now that his temperature is getting under control. We will broaden his antibiotics to vancomycin and Zosyn. MRI is unremarkable, awaiting for the echo to come back today, it has not been read yet by cardiology. He did receive some Lasix overnight secondary to his increased oxygen requirement and continue him some more Lasix today as he still requiring 15 L high flow. Appreciate cardiology's assistance. Continue with the heparin drip for his non-STEMI. UTI with a presumptive E. coli greater than 100,000 CFU. Clinical time spent in all aspects of patient care: 20 minutes 09/26/2021: Doing much better today, he is alert and oriented x3. MRI was unremarkable, he is much more stable today and could undergo a heart cath if cardiology would so desire. Echo still pending final read. His confusion improvement is likely related to treatment of his UTI. It did come back with a pansensitive E. coli and given his multiple previous CVAs this was likely metabolic encephalopathy in the setting of previous neurological illness. He is also a bit of a vasculopath with having multiple strokes and he states a 5 vessel CABG stent. Clinical time spent in all aspects of patient care activity: 17 minutes Visit Charges Inpatient E&M: 33156 Subs Hosp L2
[2021-09-26] MEDS: 0.9% Saline Lock 10 ML Syringe IV (11:17)
[2021-09-26 11:45] LABS: Bedside Glucose 332 mg/dL (70-110)
--- NOTE | 2021-09-26 15:02 | PCM.PN.CARD ---
Subjective Subjective Patient's altered mental status seems to have resolved. He denies any chest pain or shortness of breath Objective Data Vital Signs: Vital Signs Temp Pulse Resp BP Pulse Ox 99.3 F H 92 16 127/66 H 94 09/26/21 10:24 09/26/21 10:24 09/26/21 10:24 09/26/21 10:24 09/26/21 10:24 Oxygen Flow Rate (L/min) 10 Oxygen Delivery Method High Flow Weight: 154 lb 12.232 oz Body Mass Index (BMI) 24.3 Intake & Output: Intake and Output for Last 24 Hours 09/24/21 09/25/21 09/26/21 23:59 23:59 23:59 Intake Total 2953.33 / 2953.33 1438.68 / 1878.68 1285 / 1285 Output Total 250 / 400 2050 / 2300 700 / 700 Balance 2703.33 / 2553.33 -611.32 / -421.32 585 / 585 Lab / Micro Data Result Diagrams: 09/26/21 06:00 09/26/21 06:00 Labs: Laboratory Results - last 24 hr 09/25/21 16:15: POC Glucose 257 H 09/25/21 18:08: POC Glucose 266 H 09/25/21 22:54: POC Glucose 233 H 09/26/21 05:38: POC Glucose 279 H 09/26/21 06:00: WBC 8.7, RBC 4.26 L, Hgb 11.7 L, Hct 35.9 L, MCV 84.3, MCH 27.5, MCHC 32.6, RDW Std Deviation 46.2 H, RDW Coeff of Maia 15.2 H, Plt Count 224, MPV 9.7, Immature Gran % (Auto) 0.600, Neut % (Auto) 82.1 H, Lymph % (Auto) 7.4 L, [place] % (Auto) 9.5, Eos % (Auto) 0.2, Baso % (Auto) 0.2, Absolute Neuts (auto) 7.1, Absolute Lymphs (auto) 0.64 L, Nucleated RBC % 0 09/26/21 06:00: Sodium 136, Potassium 3.7, Chloride 99, Carbon Dioxide 27.0, Anion Gap 10, BUN 20 H, Creatinine 1.04, Estim Creat Clear Calc 67.97, Est GFR (MDRD) Af Amer 93, Est GFR (MDRD) Non-Af 77, BUN/Creatinine Ratio 19.2, Glucose 270 H, Calcium 8.7 09/26/21 06:00: APTT 69.6 H 09/26/21 11:12: POC Glucose 332 H Micro: Microbiology 09/25/21 08:00 Sputum, Induced/Lukens Gram Stain - Final 09/25/21 08:00 Sputum, Induced/Lukens Respiratory Culture - Preliminary Appears to be normal respiratory ginny. Further studies to follow. 09/24/21 03:03 Blood Culture (Wb) - Right Hand Blood Culture - Preliminary No growth in 48 hours. 09/24/21 03:05 Blood Culture (Wb) - Anticubital Left Blood Culture - Preliminary No growth in 48 hours. 09/24/21 02:25 Urine, Catheterized Urine Culture - Final Presumptive E. coli Cardiology Labs/Tests 09/26/21 06:00: WBC 8.7, RBC 4.26 L, Hgb 11.7 L, Hct 35.9 L, MCV 84.3, MCH 27.5, MCHC 32.6, Plt Count 224, MPV 9.7, Immature Gran % (Auto) 0.600, Neut % (Auto) 82.1 H, Lymph % (Auto) 7.4 L, [place] % (Auto) 9.5, Eos % (Auto) 0.2, Baso % (Auto) 0.2, Absolute Neuts (auto) 7.1, Nucleated RBC % 0 09/26/21 06:00: Sodium 136, Potassium 3.7, Chloride 99, Carbon Dioxide 27.0, Anion Gap 10, BUN 20 H, Creatinine 1.04, Est GFR (MDRD) Af Amer 93, Est GFR (MDRD) Non-Af 77, BUN/Creatinine Ratio 19.2, Glucose 270 H, Calcium 8.7 09/26/21 06:00: APTT 69.6 H Rhythm: EKG: ECHO: Stress Test: Cardiac Cath: PCI: CT Surgery: Holter monitor: EPS: PPM: CXR: Chest CT Scan: Physical Exam Const alert and oriented x3 Orientation / Consciousness: awake HEENT normocephalic Chest inspection of chest normal Resp normal respiratory effort Cardio regular rate Extremity no pedal edema Assessment & Plan Assessment/Plan (1) Non-ST elevation [place] (NSTEMI): PLAN: Patient does not have any chest pain. Continue medical treatment. Preserved EF. Patient does have grade 2 diastolic dysfunction. Agree with Lasix as needed. In view of patient's overall condition, multiple medical problems and lack of anginal symptoms it will be reasonable to continue just medical management for his non-STEMI without invasive work-up. Patient is going to be here overnight. He was advised to let us know if he has any anginal symptoms. Charges/Coding Visit Charges Inpatient E&M: 07079 Subs Hosp L2
[2021-09-26 17:26] LABS: Bedside Glucose 320 mg/dL (70-110)
[2021-09-26] MEDS: Pantoprazole Sodium 40 MG Tablet PO (18:58)
[2021-09-26] MEDS: Atorvastatin Calcium 40 MG Tablet PO (22:09)
[2021-09-26 22:15] LABS: Bedside Glucose 365 mg/dL (70-110)
[2021-09-26 23:32] LABS: Vancomycin, Trough Level 11.7 ug/mL (5.0-15.0)
--- NOTE | 2021-09-26 23:50 | PCM.RX.CS ---
Consult Pharmacy has been consulted to manage selected antiobiotic: Vancomycin Type of Consult: Follow-up Suspected Infection: Other Prior Doses of Antibiotics Received/Current Regimen: Medications Vancomycin HCl (Vancomycin) 1,000 mg in 200 mls @ 200 mls/hr IV Q12H JENNI Vancomycin HCl 750 mg/ Sodium (Chloride) 265 mls @ 250 mls/hr IV Q12H JENNI Stop: 09/27/21 00:30 Last Admin: 09/26/21 23:09 Dose: 250 mls/hr Labs: Sodium 136 mmol/L (136-145) 09/26/21 06:00 Potassium 3.7 mmol/L (3.5-5.1) 09/26/21 06:00 Chloride 99 mmol/L (98-107) 09/26/21 06:00 Carbon Dioxide 27.0 mmol/L (21.0-32.0) 09/26/21 06:00 Anion Gap 10 (5-15) 09/26/21 06:00 BUN 20 mg/dL (7-18) H 09/26/21 06:00 Creatinine 1.04 mg/dL (0.70-1.30) 09/26/21 06:00 Est GFR (MDRD) Af Amer 93 mL/min (>60) 09/26/21 06:00 Est GFR (MDRD) Non-Af 77 mL/min (>60) 09/26/21 06:00 BUN/Creatinine Ratio 19.2 RATIO (10-20) 09/26/21 06:00 Glucose 270 mg/dL (74-106) H 09/26/21 06:00 Vancomycin Trough 11.7 ug/mL (5.0-15.0) 09/26/21 22:56 Microbiology: Microbiology 09/25/21 08:00 Sputum, Induced/Lukens Gram Stain - Final 09/25/21 08:00 Sputum, Induced/Lukens Respiratory Culture - Preliminary Appears to be normal respiratory ginny. Further studies to follow. 09/24/21 03:03 Blood Culture (Wb) - Right Hand Blood Culture - Preliminary No growth in 48 hours. 09/24/21 03:05 Blood Culture (Wb) - Anticubital Left Blood Culture - Preliminary No growth in 48 hours. 09/24/21 02:25 Urine, Catheterized Urine Culture - Final Presumptive E. coli Weight used for dosin.2 kg Estimated Creatinine Clearance: 68 Goal Trough: 15-20 mcg/mL Pharmacy Plan for Drug Dosing: Vancomycin trough level was 11.7, below the target range of 15-20. Will increase dose to 1000mg q12h, and re-draw a trough prior to 4th dose of new regimen. Pharmacy Service will continue to monitor and adjust dosing as required. Follow-Up Labs: Trough Vancomycin Labs to be done on [date and time ordered]: 09/28/21 @2494
[2021-09-27] VITALS (14 sets, daily range): BP systolic 135–153; BP diastolic 68–78; PULSE 80–92; RESP 12–21; TEMP 36.6–37.2; O2SAT 92–97
[2021-09-27 06:48] LABS: Absolute Lymphocyte Count 0.59 X10^3/uL (0.83-4.51); Absolute Neutrophil Count 7.4 X10^3/uL (2.0-7.7); Basophil# 0.02 X10^3/uL; Basophil% 0.2 % (0-1); Eosinophil# 0.02 X10^3/uL; Eosinophils% 0.2 % (0-5); Hematocrit 34.6 % (40-54); Lymphocyte # 0.59 X10^3/ul (0.83-4.51); Lymphocyte % 6.8 % (19-41); Mean Corp Hgb Conc 31.8 g/dL (32-36); Mean Corpuscular Hgb 26.5 pg (27.0-32.0); Mean Corpuscular Volume 83.4 fL (80-94); Mean Platelet Vol. 9.4 fl (6.2-12.0); Monocyte# 0.66 X10^3/uL; Monocyte% 7.6 % (0-10); NRBC Flagged by Analyzer 0 % (0-5); Neutrophil # 7.37 X10^3/uL (2.7-7.7); Neutrophil % 84.7 % (47-70); POSITIVE DIFFERENTIAL YES; Platelet Count 226 K/mm3 (150-450); RBC Distribution Width CV 14.9 % (11.6-14.6); RBC Distribution Width SD 45.1 fl (35.1-43.9); Red Blood Count 4.15 M/mm3 (4.6-6.2); White Blood Count 8.7 K/mm3 (4.4-11.0)
[2021-09-27] MEDS: Insulin Lispro 100 UNIT/ML INSULN.PEN SC ×4 (06:51→20:56)
[2021-09-27 06:53] LABS: Differential Indicated SCAN CRITERIA MET
[2021-09-27 07:05] LABS: Partial Thromboplast Time 47.2 Seconds (24.1-36.2)
[2021-09-27 07:05] LABS: Bedside Glucose 327 mg/dL (70-110)
[2021-09-27 07:15] LABS: Anion Gap 9 (5-15); BUN 23 mg/dL (7-18); BUN/Creat Ratio 23.5 RATIO (10-20); Calcium,Total 8.5 mg/dL (8.5-10.1); Chloride 100 mmol/L (98-107); Creatinine, Serum 0.98 mg/dL (0.70-1.30); EST Glomerular Filtration Rate 82 mL/min (>60); Est Glom Filt Rate - Afr Amer 99 mL/min (>60); Estimated Creatinine Clearance 72.13 ml/min; Glucose 333 mg/dL (74-106); Potassium 4.1 mmol/L (3.5-5.1); Sodium Level 133 mmol/L (136-145)
[2021-09-27] MEDS: Heparin Injection (Vial) 5,000 UNIT/ML VIAL IV ×2 (07:31→14:36)
[2021-09-27] MEDS: Aspirin 81 MG TAB.CHEW PO (07:44)
[2021-09-27] MEDS: Clopidogrel Bisulfate 75 MG Tablet PO (09:41)
[2021-09-27] MEDS: amLODIPine 5 MG Tablet PO (09:41)
[2021-09-27] MEDS: Pantoprazole Sodium 40 MG Tablet PO (09:41)
[2021-09-27] MEDS: Carvedilol 3.125 MG TABLET PO ×2 (09:41→20:56)
[2021-09-27] MEDS: Lisinopril 5 MG Tablet PO (09:41)
--- NOTE | 2021-09-27 10:44 | PN.HOSP_ITS ---
Documented by User: Johan PARK 09/27/21 11:05 Subjective Subjective Patient is a 65-year-old male comfortably resting in bed, alert and orient x3. Denies development of any new symptoms overnight. Does not appear in acute distress. Objective Data Objective Data Vital Signs: Vital Signs Temp Pulse Resp BP Pulse Ox 98.9 F 87 16 139/72 H 92 09/27/21 09:35 09/27/21 09:35 09/27/21 09:35 09/27/21 09:35 09/27/21 10:31 Oxygen Flow Rate (L/min) 7 Oxygen Delivery Method High Flow Weight: 154 lb 12.232 oz Body Mass Index (BMI) 24.3 Intake & Output: Intake and Output for Last 24 Hours 09/25/21 09/26/21 09/27/21 23:59 23:59 23:59 Intake Total 1438.68 / 1878.68 1904.67 / 1904.67 408.13 / 408.13 Output Total 2050 / 2300 1200 / 1200 300 / 300 Balance -611.32 / -421.32 704.67 / 704.67 108.13 / 108.13 Lab / Micro Data Result Diagrams: 09/27/21 06:35 09/27/21 06:35 Labs: Laboratory Results - last 24 hr 09/26/21 11:12: POC Glucose 332 H 09/26/21 17:11: POC Glucose 320 H 09/26/21 21:54: POC Glucose 365 H 09/26/21 22:56: Vancomycin Trough 11.7 09/27/21 06:35: APTT 47.2 H 09/27/21 06:35: WBC 8.7, RBC 4.15 L, Hgb 11.0 L, Hct 34.6 L, MCV 83.4, MCH 26.5 L, MCHC 31.8 L, RDW Std Deviation 45.1 H, RDW Coeff of Maia 14.9 H, Plt Count 226, MPV 9.4, Immature Gran % (Auto) 0.500, Neut % (Auto) 84.7 H, Lymph % (Auto) 6.8 L, [place] % (Auto) 7.6, Eos % (Auto) 0.2, Baso % (Auto) 0.2, Absolute Neuts (auto) 7.4, Absolute Lymphs (auto) 0.59 L, Nucleated RBC % 0 09/27/21 06:35: Sodium 133 L, Potassium 4.1, Chloride 100, Carbon Dioxide 24.0, Anion Gap 9, BUN 23 H, Creatinine 0.98, Estim Creat Clear Calc 72.13, Est GFR (MDRD) Af Amer 99, Est GFR (MDRD) Non-Af 82, BUN/Creatinine Ratio 23.5 H, Glucose 333 H, Calcium 8.5 09/27/21 06:47: POC Glucose 327 H Micro: Microbiology 09/25/21 08:00 Sputum, Induced/Lukens Gram Stain - Final 09/25/21 08:00 Sputum, Induced/Lukens Respiratory Culture - Final 09/24/21 03:03 Blood Culture (Wb) - Right Hand Blood Culture - Preliminary No growth in 48 hours. 09/24/21 03:05 Blood Culture (Wb) - Anticubital Left Blood Culture - Preliminary No growth in 48 hours. 09/24/21 02:25 Urine, Catheterized Urine Culture - Final Presumptive E. coli Physical Exam Const alert, oriented x3 and no apparent distress HEENT head/scalp atraumatic and moist oral mucous membranes Head and Scalp: normocephalic Eyes PERRL and conjunctivae normal Neck no lymphadenopathy, supple and no JVD Resp normal respiratory effort, no retractions and no use of accessory muscles Cardio regular rate, regular rhythm and no JVD GI normal to inspection, nondistended, normoactive bowel sounds Extremity normal to inspection Skin no rashes or lesions noted Neuro CN's II-XII intact bilaterally Psych affect normal Assessment & Plan Assessment/Plan (1) Altered mental status: QUALIFIERS: Altered mental status type: unspecified Qualified Code(s): R41.82 - Altered mental status, unspecified (2) Non-ST elevation [place] (NSTEMI): (3) UTI (urinary tract infection): QUALIFIERS: Hematuria presence: without hematuria Urinary tract infection type: acute cystitis Qualified Code(s): N30.00 - Acute cystitis without hematuria (4) Hypoxia: PLAN: Day 3 Discharge planning: To be determined. 1) metabolic encephalopathy Resolved, patient is not confused or agitated and is appropriately alert and oriented. Believe patient's encephalopathy be to be metabolic in nature, although unclear if primary source is UTI, pneumonia or both. Stroke ruled out, brain MRI did not demonstrate any acute infarct or ischemia. Updated chest x- ray demonstrates worsening bilateral airspace disease possibly indicative of pneumonia. UA abnormal, urine culture preliminarily grew E. coli. Blood and sputum cultures demonstrate no growth. We will continue broad-spectrum antibiotics with vancomycin and Zosyn and await cultures for sensitivities and speciation. 2) UTI Urine culture demonstrated E. coli.UA with yellow cloudy urine, negative nitrites, 500 leukocyte esterase, greater than 100 urine WBCs seen, 4+ bacteria. Plan as above. 2) Acute hypoxic respiratory failure Variable patient still requiring high flow O2 and BiPAP. Work-up thus far has been unremarkable, will obtain viral respiratory panel as well as Covid PCR. Rapid Covid was negative on admission. Updated chest x-ray demonstrates worsening bilateral airspace disease possibly indicative of pneumonia. Plan; as above. 3) acute NSTEMI High-sensitivity troponins elevated throughout at 29,000, 24,000 and 49185, respectively. Was assessed by cardiology on 09/24, and was deemed not appropriate for cardiac catheterization due to agitation. Recommendations are to continue with heparin, aspirin, Plavix, statin and beta-tian. Cardiology will continue to follow. 4) DM2 Accu-Cheks are sliding scale insulin ordered. DVT prophylaxis -prophylaxis not indicated as patient is on heparin drip Patient seen by Johan La PA-C, under the supervision of Dr. Robertson. Time spent on patient care: 8 minutes. Documented by User: Dr. Tay Robertson MD 09/27/21 14:21 Objective Data Lab / Micro Data Result Diagrams: 09/27/21 06:35 09/27/21 06:35 Assessment & Plan Addt'l Comments This patient was seen in conjunction with Johan La PA-C. I have in dependently interviewed and examined the patient and reviewed pertinent historical, laboratory, and other data. Please refer to Johan La PA-C's note for details of this patient's presentation, findings, and recommendations. I have reviewed Johan La PA-C's note and concur with documented findings. In brief, patient is a 65-year-old gentleman admitted with increasing confusion and generalized weakness. Assessment of pneumonia as well as UTI admitted admitted to a monitored bed where patient has since been managed. Patient was also found to have markedly elevated troponin consistent with acute non-STEMI cardiology consulted Physical Examination: GENERAL: cooperative HEENT: Atraumatic; EYES; Anicteric, Normal Conjunctiva NECK; supple, normal thyroid, RESPIRATORY: Diminished to auscultation CARDIOVASCULAR: Regular S1 S2, GI: soft, normoactive bowel sounds, : No Renal angle tenderness; EXTREMITIES: No edema, no clubbing, MUSCULOSKELETAL: no muscle wasting NEURO: Awake; no lateralizing signs. SKIN: No Rash PSYCH; Flat affect Assessment: 1. Acute metabolic encephalopathy 2. Acute TTN 3. Pneumonia 4. Acute non-STEMI 5. Acute hypoxic respiratory failure 6. Diabetes mellitus type 2 7. Coronary artery disease with previous CABG and subsequent PCI 8. History of colorectal CA currently in remission 9. Ischemic cardiomyopathy 10. GERD 11. Essential hypertension 12. Obstructive sleep apnea 13. Peripheral arterial disease 14. Restrictive lung disease 15. Obstructive sleep apnea Recommendations: 1. I have discussed the results of my overview and impressions with the patient 2. Options for management were reviewed Total time spent by myself and the advanced practice practitioner evaluating patient, reviewing labs, subsequent management decisions, discussion with patient as well as other providers 45 minutes ( 25 of which was spent by myself) Charges/Coding Visit Charges Inpatient E&M: 92523 Subs Hosp L3
[2021-09-27] MEDS: Vancomycin IV 1,000 MG/200 ML BAG 200 MG IV (11:04)
[2021-09-27 11:16] LABS: Bedside Glucose 406 mg/dL (70-110)
--- NOTE | 2021-09-27 14:02 | PCM.PN.CARD ---
Subjective Subjective The patient states he is feeling better overall. He denies any ongoing chest discomfort or difficulty breathing at this time. Objective Data Vital Signs: Vital Signs Temp Pulse Resp BP Pulse Ox 98.9 F 87 16 139/72 H 92 09/27/21 09:35 09/27/21 09:35 09/27/21 09:35 09/27/21 09:35 09/27/21 10:31 Oxygen Flow Rate (L/min) 6 Oxygen Delivery Method High Flow Weight: 154 lb 12.232 oz Body Mass Index (BMI) 24.3 Intake & Output: Intake and Output for Last 24 Hours 09/25/21 09/26/21 09/27/21 23:59 23:59 23:59 Intake Total 1438.68 / 1878.68 1904.67 / 1904.67 1138.13 / 1138.13 Output Total 2050 / 2300 1200 / 1200 900 / 900 Balance -611.32 / -421.32 704.67 / 704.67 238.13 / 238.13 Lab / Micro Data Result Diagrams: 09/27/21 06:35 09/27/21 06:35 Labs: Laboratory Results - last 24 hr 09/26/21 17:11: POC Glucose 320 H 09/26/21 21:54: POC Glucose 365 H 09/26/21 22:56: Vancomycin Trough 11.7 09/27/21 06:35: APTT 47.2 H 09/27/21 06:35: WBC 8.7, RBC 4.15 L, Hgb 11.0 L, Hct 34.6 L, MCV 83.4, MCH 26.5 L, MCHC 31.8 L, RDW Std Deviation 45.1 H, RDW Coeff of Maia 14.9 H, Plt Count 226, MPV 9.4, Immature Gran % (Auto) 0.500, Neut % (Auto) 84.7 H, Lymph % (Auto) 6.8 L, [place] % (Auto) 7.6, Eos % (Auto) 0.2, Baso % (Auto) 0.2, Absolute Neuts (auto) 7.4, Absolute Lymphs (auto) 0.59 L, Nucleated RBC % 0 09/27/21 06:35: Sodium 133 L, Potassium 4.1, Chloride 100, Carbon Dioxide 24.0, Anion Gap 9, BUN 23 H, Creatinine 0.98, Estim Creat Clear Calc 72.13, Est GFR (MDRD) Af Amer 99, Est GFR (MDRD) Non-Af 82, BUN/Creatinine Ratio 23.5 H, Glucose 333 H, Calcium 8.5 09/27/21 06:47: POC Glucose 327 H 09/27/21 10:05: COVID-19 (ROBIN) Not Detected 09/27/21 11:00: POC Glucose 406 H Micro: Microbiology 09/27/21 10:30 Mucosa - Nasopharyngeal Respiratory Panel (PCR) - Final 09/25/21 08:00 Sputum, Induced/Lukens Gram Stain - Final 09/25/21 08:00 Sputum, Induced/Lukens Respiratory Culture - Final 09/24/21 03:03 Blood Culture (Wb) - Right Hand Blood Culture - Preliminary No growth in 48 hours. 09/24/21 03:05 Blood Culture (Wb) - Anticubital Left Blood Culture - Preliminary No growth in 48 hours. 09/24/21 02:25 Urine, Catheterized Urine Culture - Final Presumptive E. coli Cardiology Labs/Tests 09/27/21 06:35: APTT 47.2 H 09/27/21 06:35: WBC 8.7, RBC 4.15 L, Hgb 11.0 L, Hct 34.6 L, MCV 83.4, MCH 26.5 L, MCHC 31.8 L, Plt Count 226, MPV 9.4, Immature Gran % (Auto) 0.500, Neut % (Auto) 84.7 H, Lymph % (Auto) 6.8 L, [place] % (Auto) 7.6, Eos % (Auto) 0.2, Baso % (Auto) 0.2, Absolute Neuts (auto) 7.4, Nucleated RBC % 0 09/27/21 06:35: Sodium 133 L, Potassium 4.1, Chloride 100, Carbon Dioxide 24.0, Anion Gap 9, BUN 23 H, Creatinine 0.98, Est GFR (MDRD) Af Amer 99, Est GFR (MDRD) Non-Af 82, BUN/Creatinine Ratio 23.5 H, Glucose 333 H, Calcium 8.5 Rhythm: Sinus rhythm Physical Exam Const alert, oriented x3 and no apparent distress Orientation / Consciousness: awake HEENT normocephalic, head/scalp atraumatic and hearing grossly normal bilaterally Eyes PERRL, EOMs intact bilaterally and conjunctivae normal Neck full ROM, supple and no JVD Resp clear to auscultation bilaterally Cardio regular rate, regular rhythm, S1 normal heart sound and S2 normal heart sound GI normal to inspection, nondistended, normoactive bowel sounds Extremity no pedal edema Skin no rashes or lesions noted Psych mental status grossly normal Assessment & Plan Assessment/Plan (1) Non-ST elevation [place] (NSTEMI): PLAN: The patient has been evaluated in cardiovascular consultation by Dr. Askew. He recommended continued medical therapy barring a change in the patient's clinical course with respect to unstable symptoms, etc., especially in light of the patient's recent mental status changes, UTI, and multiple comorbidities. The patient appears at this time without any ongoing issues of acute chest discomfort or difficulty breathing. He will continue medical management. (2) 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: PLAN: The patient does have a history of underlying CAD. At the moment, based upon the aforementioned concerns, he is going to continue medical management. (3) History of coronary artery stent placement: PLAN: The patient has a history of PCI. His previous cardiovascular history/revascularization history was reviewed. He is continuing medical therapy at this time. (4) H/O coronary artery bypass surgery: PLAN: The patient has a history of coronary artery bypass grafting surgery as well. He is continuing medical therapy at this time. (5) Ischemic cardiomyopathy: PLAN: The patient does not appear to have ongoing issues of acute CHF or pulmonary edema. He will continue medical management. (6) Dyslipidemia: PLAN: The patient should continue risk factor evaluation care/medical therapy as tolerated. (7) HTN (hypertension): QUALIFIERS: Hypertension type: essential hypertension Qualified Code(s): I10 - Essential (primary) hypertension PLAN: The patient's blood pressure has to be monitored. His medicines can be adjusted accordingly. (8) UTI (urinary tract infection): QUALIFIERS: Urinary tract infection type: acute cystitis Hematuria presence: without hematuria Qualified Code(s): N30.00 - Acute cystitis without hematuria PLAN: The patient has a UTI. Apparently there was concerns patient had urosepsis. There was concerns that this may have been contributing to his mental status changes. At the moment he is continuing IV antibiotic therapy. Addt'l Comments The patient's case was discussed and reviewed with Dr. Askew. As per his consultation, based upon the patient's mental status changes, his underlying UTI/possible urosepsis, his multiple comorbidities, and status post review of his invasive cardiovascular procedures/interventions, etc., he recommended continued medical management barring a change in the patient's clinical course from a cardiac standpoint. Of note, based upon review of the patient's previous diagnostic cardiac catheterization procedures, it appeared that he required a recommendation for special catheters to be able to proceed with invasive cardiovascular procedures. Thus if the patient does require diagnostic cardiac catheterization in the future, consideration might be given as to whether it is appropriate to preperformed at [facility] versus back at a tertiary care center such as before. This note was generated using a voice recognition system and there may be incorrect words, spelling or punctuation that were not noted when reviewing the office note prior to saving.
[2021-09-27 14:08] LABS: Partial Thromboplast Time 52.8 Seconds (24.1-36.2)
[2021-09-27] MEDS: Furosemide 40 MG Tablet PO (15:20)
[2021-09-27 16:21] LABS: Bedside Glucose > 500 mg/dL (70-110)
--- NOTE | 2021-09-27 16:54 | CHAPLAIN ---
Type of Pastoral Visit _x__ Initial Visit ___ Follow-up Visit ___ On-call Visit ___ General Patient Visit ___ Spiritual Assessment ___ Family Conference ___ Bereavement ___ Rapid Response ___ Code Blue ___ Other (describe below) Pastoral Care Referral From _x__ Patient ___ Family ___ Nurse ___ Physician ___ Cob Sawyer ___ Asphalt Roller Person ___ Other (describe below) Sacrament/Intervention _x__ Active listening ___ Anointing ___ Zoroastrianism ___ Bereavement ___ Communion _x__ Angelika exploration ___ ___ Life review _x__ Prayer ___ Reconciliation ___ Sacrament of Sick _x__ Supportive presence ___ Wedding ___ Other (describe below) Pastoral Comments patient and spouse in room; pt reports and agrees that today is going better and going home is hopeful over next day or so; pt and speak of long health concerns over last few years; pt identifies himself as a person of angelika and finds his support in God, Gospel music, and in family; assisted family in finding music channels on TV; pt request for prayer includes an ability to sleep in the hospital which has been lacking;
[2021-09-27] MEDS: Cefdinir 300 MG Capsule PO (20:56)
[2021-09-27] MEDS: Atorvastatin Calcium 40 MG Tablet PO (20:56)
[2021-09-27 21:22] LABS: Partial Thromboplast Time 62.5 Seconds (24.1-36.2)
[2021-09-27 21:40] LABS: Bedside Glucose 439 mg/dL (70-110)
[2021-09-28] VITALS (17 sets, daily range): BP systolic 115–141; BP diastolic 66–75; PULSE 64–77; RESP 12–18; TEMP 36.2–36.7; O2SAT 88–100
[2021-09-28 01:04] LABS: Partial Thromboplast Time 60.4 Seconds (24.1-36.2)
[2021-09-28] MEDS: LORazepam 2 MG/ML Syringe 1 MG IV (01:22)
[2021-09-28 06:18] LABS: Absolute Lymphocyte Count 0.68 X10^3/uL (0.83-4.51); Absolute Neutrophil Count 3.6 X10^3/uL (2.0-7.7); Basophil# 0.01 X10^3/uL; Basophil% 0.2 % (0-1); Eosinophil# 0.17 X10^3/uL; Eosinophils% 3.4 % (0-5); Hematocrit 29.9 % (40-54); Lymphocyte # 0.68 X10^3/ul (0.83-4.51); Lymphocyte % 13.6 % (19-41); Mean Corp Hgb Conc 33.4 g/dL (32-36); Mean Corpuscular Hgb 28.2 pg (27.0-32.0); Mean Corpuscular Volume 84.5 fL (80-94); Mean Platelet Vol. 9.5 fl (6.2-12.0); Monocyte# 0.52 X10^3/uL; Monocyte% 10.4 % (0-10); NRBC Flagged by Analyzer 0 % (0-5); Neutrophil # 3.59 X10^3/uL (2.7-7.7); Platelet Count 195 K/mm3 (150-450); RBC Distribution Width CV 14.7 % (11.6-14.6); RBC Distribution Width SD 45.3 fl (35.1-43.9); Red Blood Count 3.54 M/mm3 (4.6-6.2)
[2021-09-28] MEDS: Insulin Lispro 100 UNIT/ML INSULN.PEN SC ×4 (06:34→21:10)
[2021-09-28 06:40] LABS: Bedside Glucose 360 mg/dL (70-110)
[2021-09-28 06:52] LABS: Anion Gap 6 (5-15); BUN 28 mg/dL (7-18); BUN/Creat Ratio 26.9 RATIO (10-20); Calcium,Total 8.6 mg/dL (8.5-10.1); Chloride 100 mmol/L (98-107); Creatinine, Serum 1.04 mg/dL (0.70-1.30); EST Glomerular Filtration Rate 76 mL/min (>60); Est Glom Filt Rate - Afr Amer 93 mL/min (>60); Estimated Creatinine Clearance 67.97 ml/min; Glucose 335 mg/dL (74-106); Potassium 3.7 mmol/L (3.5-5.1); Sodium Level 136 mmol/L (136-145)
[2021-09-28] MEDS: Aspirin 81 MG TAB.CHEW PO (09:46)
[2021-09-28] MEDS: Carvedilol 3.125 MG TABLET PO ×2 (09:47→21:10)
[2021-09-28] MEDS: Furosemide 40 MG Tablet PO (09:48)
[2021-09-28] MEDS: amLODIPine 5 MG Tablet PO (09:48)
[2021-09-28] MEDS: Cefdinir 300 MG Capsule PO ×2 (09:48→21:10)
[2021-09-28] MEDS: Pantoprazole Sodium 40 MG Tablet PO (09:48)
[2021-09-28] MEDS: Clopidogrel Bisulfate 75 MG Tablet PO (09:48)
[2021-09-28] MEDS: Lisinopril 5 MG Tablet PO (09:48)
[2021-09-28 11:35] LABS: Bedside Glucose 285 mg/dL (70-110)
[2021-09-28] MEDS: Insulin Lispro 100 UNIT/ML INSULN.PEN 10 UNIT SC ×2 (11:51→16:54)
[2021-09-28] MEDS: Acetaminophen 325 MG Tablet 650 MG PO (14:02)
--- NOTE | 2021-09-28 14:07 | PCM.PN.HOSP ---
Documented by User: Johan PARK 09/28/21 14:15 Subjective Subjective Patient is a 65-year-old male comfortably lying in bed, alert and oriented x3. Although patient is appropriately alert and oriented, he is very drowsy from dose of Ativan given last night for agitation. Does not appear agitated this morning and was able to dissipate in physical therapy and walk with nurse. Objective Data Objective Data Vital Signs: Vital Signs Temp Pulse Resp BP Pulse Ox 97.2 F L 70 18 138/66 H 88 09/28/21 09:40 09/28/21 09:40 09/28/21 09:40 09/28/21 09:40 09/28/21 11:55 Oxygen Flow Rate (L/min) [At 2 REST with Oxygen] Oxygen Flow Rate (L/min) [ 3 AMBULATING with Oxygen #2] Oxygen Flow Rate (L/min) [ 2 AMBULATING with Oxygen #1] Oxygen Flow Rate (L/min) 4 Oxygen Delivery Method Nasal Cannula Weight: 157 lb 10.088 oz Body Mass Index (BMI) 24.3 Intake & Output: Intake and Output for Last 24 Hours 09/26/21 09/27/21 09/28/21 23:59 23:59 23:59 Intake Total 1904.67 / 1904.67 1688.06 / 1928.06 650.07 / 650.07 Output Total 1200 / 1200 1250 / 1750 1100 / 1100 Balance 704.67 / 704.67 438.06 / 178.06 -449.93 / -449.93 Lab / Micro Data Result Diagrams: 09/28/21 06:05 09/28/21 06:05 Labs: Laboratory Results - last 24 hr 09/27/21 13:34: APTT 52.8 H 09/27/21 16:14: POC Glucose > 500 H* 09/27/21 20:40: APTT 62.5 H 09/27/21 20:54: POC Glucose 439 H 09/28/21 00:44: APTT 60.4 H 09/28/21 06:05: WBC 5.0, RBC 3.54 L, Hgb 10.0 L, Hct 29.9 L, MCV 84.5, MCH 28.2, MCHC 33.4 D, RDW Std Deviation 45.3 H, RDW Coeff of Maia 14.7 H, Plt Count 195, MPV 9.5, Immature Gran % (Auto) 0.400, Neut % (Auto) 72.0 H, Lymph % (Auto) 13.6 L, [place] % (Auto) 10.4 H, Eos % (Auto) 3.4, Baso % (Auto) 0.2, Absolute Neuts (auto) 3.6, Absolute Lymphs (auto) 0.68 L, Nucleated RBC % 0 09/28/21 06:05: Sodium 136, Potassium 3.7, Chloride 100, Carbon Dioxide 30.0, Anion Gap 6, BUN 28 H, Creatinine 1.04, Estim Creat Clear Calc 67.97, Est GFR (MDRD) Af Amer 93, Est GFR (MDRD) Non-Af 76, BUN/Creatinine Ratio 26.9 H, Glucose 335 H, Calcium 8.6 09/28/21 06:33: POC Glucose 360 H 09/28/21 11:25: POC Glucose 285 H Micro: Microbiology 09/27/21 10:30 Mucosa - Nasopharyngeal Respiratory Panel (PCR) - Final 09/25/21 08:00 Sputum, Induced/Lukens Gram Stain - Final 09/25/21 08:00 Sputum, Induced/Lukens Respiratory Culture - Final 09/24/21 03:03 Blood Culture (Wb) - Right Hand Blood Culture - Preliminary No growth in 48 hours. 09/24/21 03:05 Blood Culture (Wb) - Anticubital Left Blood Culture - Preliminary No growth in 48 hours. 09/24/21 02:25 Urine, Catheterized Urine Culture - Final Presumptive E. coli Physical Exam Const alert, oriented x3 and no apparent distress HEENT head/scalp atraumatic and moist oral mucous membranes Head and Scalp: normocephalic Eyes PERRL and conjunctivae normal Neck no lymphadenopathy, supple and no JVD Resp normal respiratory effort, no retractions and no use of accessory muscles Cardio regular rate, regular rhythm and no JVD GI normal to inspection, nondistended, normoactive bowel sounds Extremity normal to inspection Skin no rashes or lesions noted Neuro CN's II-XII intact bilaterally Psych affect normal Assessment & Plan Assessment/Plan (1) Altered mental status: QUALIFIERS: Altered mental status type: unspecified Qualified Code(s): R41.82 - Altered mental status, unspecified (2) UTI (urinary tract infection): QUALIFIERS: Hematuria presence: without hematuria Urinary tract infection type: acute cystitis Qualified Code(s): N30.00 - Acute cystitis without hematuria (3) Hypoxia: (4) Non-ST elevation [place] (NSTEMI): PLAN: Day 4 Discharge planning: To discharge home when medically ready. Patient was supposed to be discharged on 09/28, however was lethargic from dose of Ativan given night prior. Given patient's comorbidities and weakness from hospital stay, will keep patient overnight and plan on discharge on 09/29. 1) metabolic encephalopathy Resolved, patient is not confused or agitated and is appropriately alert and oriented. Believe patient's encephalopathy be to be metabolic in nature, although unclear if primary source is UTI, pneumonia or both. Stroke ruled out, brain MRI did not demonstrate any acute infarct or ischemia. Updated chest x-ray demonstrates worsening bilateral airspace disease possibly indicative of pneumonia. UA abnormal, urine culture preliminarily grew E. coli. Blood and sputum cultures demonstrate no growth. Antibiotics deescalated to oral cefdinir based off of sensitivities, on day 4 of 7. 2) UTI Urine culture demonstrated E. coli.UA with yellow cloudy urine, negative nitrites, 500 leukocyte esterase, greater than 100 urine WBCs seen, 4+ bacteria. Plan as above. 2) Acute hypoxic respiratory failure Resolved, currently 92% on satting in 2 L via nasal cannula. 3) acute NSTEMI High-sensitivity troponins elevated throughout at 29,000, 24,000 and 33661, respectively. Was assessed by cardiology on 09/24, and was deemed not appropriate for cardiac catheterization due to agitation. Recommendations are to continue with heparin, aspirin, Plavix, statin and beta-tian. Cardiology will continue to follow. 4) DM2 Sugars have been difficult to control throughout admission, currently 330. Accu-Cheks are sliding scale insulin ordered. Lantus 30 units twice daily ordered. DVT prophylaxis -prophylaxis not indicated as patient is on heparin drip Patient seen by Johan La PA-C, under the supervision of Dr. Robertson. Documented by User: Dr. Tya Robertson MD 09/28/21 14:28 Objective Data Lab / Micro Data Result Diagrams: 09/28/21 06:05 09/28/21 06:05 Assessment & Plan Addt'l Comments This patient was seen in conjunction with Johan La PA-C. I have independently interviewed and examined the patient and reviewed pertinent historical, laboratory, and other data. Please refer to Johan La PA-C's note for details of this patient's presentation, findings, and recommendations. I have reviewed Johan La PA-C's note and concur with documented findings. In brief, patient is a 65-year-old gentleman admitted with increasing confusion and generalized weakness. Assessment of pneumonia as well as UTI admitted admitted to a monitored bed where patient has since been managed. Patient was also found to have markedly elevated troponin consistent with acute non-STEMI cardiology consulted 09/28/2021; patient seen much more lethargic compared to previous day. Patient had apparently received Ativan during the night for agitation. Physical Examination: GENERAL: Lethargic but arousable HEENT: Atraumatic; EYES; Anicteric, Normal Conjunctiva NECK; supple, normal thyroid, RESPIRATORY: Diminished to auscultation CARDIOVASCULAR: Regular S1 S2, GI: soft, normoactive bowel sounds, : No Renal angle tenderness; EXTREMITIES: No edema, no clubbing, MUSCULOSKELETAL: no muscle wasting NEURO: Awake; no lateralizing signs. SKIN: No Rash PSYCH; Flat affect Assessment: 1. Acute metabolic encephalopathy 2. Acute TTN 3. Pneumonia 4. Acute non-STEMI 5. Acute hypoxic respiratory failure 6. Diabetes mellitus type 2 7. Coronary artery disease with previous CABG and subsequent PCI 8. History of colorectal CA currently in remission 9. Ischemic cardiomyopathy 10. GERD 11. Essential hypertension 12. Obstructive sleep apnea 13. Peripheral arterial disease 14. Restrictive lung disease 15. Obstructive sleep apnea Recommendations: 1. I have discussed the results of my overview and impressions with the patient 2. Options for management were reviewed Total time spent by myself and the advanced practice practitioner evaluating patient, reviewing labs, subsequent management decisions, discussion with patient as well as other providers 45 minutes ( 25 of which was spent by myself) Charges/Coding Visit Charges Inpatient E&M: 71734 Subs Hosp L2
--- NOTE | 2021-09-28 14:59 | CASEMGMT ---
This RN CM to room to discuss d/c plan with pt/ and is unsure of plan for discharge at this time. Pt/ provided a list of SNF and HHC providers including quality and resource use data and consistent with the pt's preferred geographic region, medical needs, and insurance network. CM to follow. Saran MARKHAM CM
[2021-09-28 18:11] LABS: Bedside Glucose 200 mg/dL (70-110)
[2021-09-28] MEDS: Atorvastatin Calcium 40 MG Tablet PO (21:10)
[2021-09-28 21:21] LABS: Bedside Glucose 174 mg/dL (70-110)
[2021-09-29] VITALS (12 sets, daily range): BP systolic 125–145; BP diastolic 64–72; PULSE 68–75; RESP 12–18; TEMP 36.6–36.9; O2SAT 92–98
[2021-09-29] MEDS: Acetaminophen 325 MG Tablet 650 MG PO (04:16)
[2021-09-29 06:08] LABS: Absolute Lymphocyte Count 0.51 X10^3/uL (0.83-4.51); Absolute Neutrophil Count 3.7 X10^3/uL (2.0-7.7); Basophil# 0.02 X10^3/uL; Basophil% 0.4 % (0-1); Eosinophil# 0.23 X10^3/uL; Eosinophils% 4.7 % (0-5); Hematocrit 32.9 % (40-54); Hemoglobin 10.9 g/dL (13.0-16.5); Lymphocyte # 0.51 X10^3/ul (0.83-4.51); Lymphocyte % 10.5 % (19-41); Mean Corp Hgb Conc 33.1 g/dL (32-36); Mean Corpuscular Hgb 27.8 pg (27.0-32.0); Mean Corpuscular Volume 83.9 fL (80-94); Mean Platelet Vol. 9.7 fl (6.2-12.0); Monocyte% 8.2 % (0-10); NRBC Flagged by Analyzer 0 % (0-5); Neutrophil # 3.69 X10^3/uL (2.7-7.7); POSITIVE DIFFERENTIAL YES; Platelet Count 258 K/mm3 (150-450); RBC Distribution Width CV 14.6 % (11.6-14.6); RBC Distribution Width SD 44.1 fl (35.1-43.9); Red Blood Count 3.92 M/mm3 (4.6-6.2); White Blood Count 4.9 K/mm3 (4.4-11.0)
[2021-09-29 06:17] LABS: Differential Indicated SCAN CRITERIA MET
[2021-09-29 06:43] LABS: Partial Thromboplast Time 65.1 Seconds (24.1-36.2)
[2021-09-29] MEDS: Sodium Chloride 0.65% 1 SPRAY SPRAY.BTL 2 SPRAY NASAL (06:45)
[2021-09-29] MEDS: Insulin Lispro 100 UNIT/ML INSULN.PEN 10 UNIT SC ×2 (08:07→11:42)
[2021-09-29 08:16] LABS: Bedside Glucose 145 mg/dL (70-110)
--- NOTE | 2021-09-29 09:27 | WOUNDNOTE ---
Colostomy appliance removed. there was a small amount of unformed brown stool noted in the appliance. peristomal skin is intact. stoma remains beefy red, moist, and prolapsed. the stoma is currently less prolapsed than last week, but does go in and out per pt. gently cleansed skin with soap and water. pat dry. applied a new 2 piece flat Ranjana appliance with a small amount of stoma paste. pt tolerated well. pt was given a new ostomy belt since his was soiled. pt denies further needs or concerns at this time.
[2021-09-29] MEDS: Clopidogrel Bisulfate 75 MG Tablet PO (09:30)
[2021-09-29] MEDS: Lisinopril 5 MG Tablet PO (09:31)
[2021-09-29] MEDS: Carvedilol 3.125 MG TABLET PO (09:31)
[2021-09-29] MEDS: Furosemide 40 MG Tablet PO (09:32)
[2021-09-29] MEDS: Aspirin 81 MG TAB.CHEW PO (09:32)
[2021-09-29] MEDS: Cefdinir 300 MG Capsule PO (09:32)
[2021-09-29] MEDS: amLODIPine 5 MG Tablet PO (09:32)
[2021-09-29] MEDS: Pantoprazole Sodium 40 MG Tablet PO (09:32)
--- NOTE | 2021-09-29 10:27 | DS.PCM_ITS ---
Providers Date of Admission: 09/24/21 Primary Care Physician: Dr. Kendy Modi MD Consultations 09/24/21 05:18 Consult: Cardiology Routine Consulting Provider: Dorys Askew Reason for Consult: NSTEMI EMERGENT Consult: No MD Notified: Yes Date Notified: 09/24/21 Time Notified: 06:46 Method of Notification: Text 09/29/21 07:32 Consult: Onc/Wound/manager of exhibitions and collections Routine Comment: Reason for Consult:: Ostomy Reason For Visit: NSTEMI Diagnosis Discharge Diagnosis (1) Altered mental status: Status: Acute Code(s): R41.82 - Altered mental status, unspecified Qualifiers: Altered mental status type: unspecified Qualified Code(s): R41.82 - Altered mental status, unspecified (2) UTI (urinary tract infection): Status: Acute Code(s): N39.0 - Urinary tract infection, site not specified Qualifiers: Urinary tract infection type: acute cystitis Hematuria presence: without hematuria Qualified Code(s): N30.00 - Acute cystitis without hematuria (3) Hypoxia: Status: Acute Code(s): R09.02 - Hypoxemia (4) Non-ST elevation [place] (NSTEMI): Status: Acute Code(s): I21.4 - Non-ST elevation (NSTEMI) myocardial infarction Medications at Discharge Home Medications aspirin 81 mg PO DAILY 03/20/16 duloxetine 60 mg PO DAILY 03/20/16 omeprazole 40 mg PO DAILY 01/09/20 fluticasone propionate 50 mcg/actuation nasal spray,suspension 1 spray INTRANASAL DAILY 12/17/20 gabapentin 300 mg capsule 300 mg PO DAILY 12/17/20 insulin detemir U-100 100 unit/mL (3 mL) subcutaneous pen 50 unit SC BID ml 12/17/20 lisinopril 2.5 mg tablet 2.5 mg PO DAILY 12/17/20 rosuvastatin 20 mg tablet 20 mg PO QHS #90 tab 02/23/21 multivitamin 1 tab PO DAILY 06/22/21 amlodipine [Norvasc] 5 mg PO DAILY 09/26/21 insulin lispro [Humalog KwikPen Insulin] See Rx Instructions SC .COMPLEX 09/26/21 lisinopril 5 mg PO DAILY 09/26/21 Weight / BMI Weight Weight: 151 lb 14.376 oz Body Mass Index (BMI) 24.3 ABG / Lab / Microbiology Data Result Diagrams: 09/29/21 05:53 09/28/21 06:05 Laboratory: Laboratory Results - last 24 hr 09/28/21 11:25: POC Glucose 285 H 09/28/21 16:53: POC Glucose 200 H 09/28/21 21:09: POC Glucose 174 H 09/29/21 05:53: APTT 65.1 H 09/29/21 05:53: WBC 4.9, RBC 3.92 L, Hgb 10.9 L, Hct 32.9 L, MCV 83.9, MCH 27.8, MCHC 33.1, RDW Std Deviation 44.1 H, RDW Coeff of Maia 14.6, Plt Count 258, MPV 9.7, Immature Gran % (Auto) 0.200, Neut % (Auto) 76.0 H, Lymph % (Auto) 10.5 L, [place] % (Auto) 8.2, Eos % (Auto) 4.7, Baso % (Auto) 0.4, Absolute Neuts (auto) 3.7, Absolute Lymphs (auto) 0.51 L, Nucleated RBC % 0 09/29/21 08:03: POC Glucose 145 H Microbiology: Microbiology 09/24/21 03:03 Blood Culture (Wb) - Right Hand Blood Culture - Final No growth in 5 days. 09/24/21 03:05 Blood Culture (Wb) - Anticubital Left Blood Culture - Final No growth in 5 days. 09/27/21 10:30 Mucosa - Nasopharyngeal Respiratory Panel (PCR) - Final 09/25/21 08:00 Sputum, Induced/Lukens Gram Stain - Final 09/25/21 08:00 Sputum, Induced/Lukens Respiratory Culture - Final 09/24/21 02:25 Urine, Catheterized Urine Culture - Final Presumptive E. coli Discharge Plan Admission Admit Date/Time: 09/24/21 04:06 Attending Provider: Tay Robertson Primary Care Provider: Kendy Modi Consulting Providers: Dorys Askew Discharge Orders/Prescriptions Prescriptions: No Action lisinopril 2.5 mg tablet 2.5 mg PO DAILY RF: 0 gabapentin 300 mg capsule 300 mg PO DAILY RF: 0 fluticasone propionate [Flonase Allergy Relief] 50 mcg/actuation spr ay,suspension 1 spray intranasal DAILY RF: 0 multivitamin [Daily Multi-Vitamin] Tablet 1 tab PO DAILY RF: 0 aspirin 81 MG tablet,chewable 81 mg PO DAILY RF: 0 duloxetine 60 MG capsule,delayed release(DR/EC) 60 mg PO DAILY RF: 0 insulin detemir U-100 100 unit/mL (3 mL) insulin pen 50 unit SC BID RF: 0 omeprazole 40 MG capsule,delayed release(DR/EC) 40 mg PO DAILY RF: 0 amlodipine [Norvasc] 5 mg tablet 5 mg PO DAILY RF: 0 lisinopril 5 mg tablet 5 mg PO DAILY RF: 0 insulin lispro [Humalog KwikPen Insulin] 100 unit/mL insulin pen See Rx Instructions SC .COMPLEX RF: 0 rosuvastatin 20 mg tablet 20 mg PO QHS Qty: 90 RF: 3 Referrals / Follow Up: Kendy Modi MD [Primary Care Provider] -
--- NOTE | 2021-09-29 10:28 | PCM.DC ---
Discharge Instructions Diet Discharge Diet: No restrictions Activity Discharge Activity: Return to Normal Activity Weight Bearing Status: Weight bearing as tolerated Dressing / Incision Call your doctor if you observe: Fever of 101 or Higher, Numbness or Tingling, Shortness of breath, Dizziness, Chest pain, Increased palpitations (irregular heartbeat) and Calf discomfort Follow Up Care Please Follow Up With: Primary care provider When: Within the next two weeks. Test Results: Test results from this visit will be discussed in further detail at your follow-up appointment, if applicable. Discharge Plan Admission Admit Date/Time: 09/24/21 04:06 Primary Reason for Your Visit: Confusion Attending Provider: Tay Robertson Primary Care Provider: Kendy Modi Consulting Providers: Dorys Askew Discharge Orders/Prescriptions Prescriptions: New clopidogrel 75 mg Tablet 75 mg PO DAILY Qty: 30 RF: 0 carvedilol 3.125 mg Tablet 3.125 mg PO BID Qty: 60 RF: 0 cefdinir 300 mg Capsule 300 mg PO Q12 Qty: 4 RF: 0 Continued lisinopril 2.5 mg tablet 2.5 mg PO DAILY RF: 0 gabapentin 300 mg capsule 300 mg PO DAILY RF: 0 fluticasone propionate [Flonase Allergy Relief] 50 mcg/actuation spray,suspension 1 spray intranasal DAILY RF: 0 multivitamin [Daily Multi-Vitamin] Tablet 1 tab PO DAILY RF: 0 aspirin 81 MG tablet,chewable 81 mg PO DAILY RF: 0 duloxetine 60 MG capsule,delayed release(DR/EC) 60 mg PO DAILY RF: 0 insulin detemir U-100 100 unit/mL (3 mL) insulin pen 50 unit SC BID RF: 0 omeprazole 40 MG capsule,delayed release(DR/EC) 40 mg PO DAILY RF: 0 amlodipine [Norvasc] 5 mg tablet 5 mg PO DAILY RF: 0 lisinopril 5 mg tablet 5 mg PO DAILY RF: 0 insulin lispro [Humalog KwikPen Insulin] 100 unit/mL insulin pen See Rx Instructions SC .COMPLEX RF: 0 rosuvastatin 20 mg tablet 20 mg PO QHS Qty: 90 RF: 3 Referrals / Follow Up: Kendy Modi MD [Primary Care Provider] - Within 2 Weeks Dwayne Gee MD [STAFF PHYSICIAN] - Within 2 Weeks Disposition Disposition (needs filled in before D/C Order can be placed): Home, Self Care
--- NOTE | 2021-09-29 11:07 | CASEMGMT ---
Addendum entered by Steffany Galvan 09/29/21 16:06: Pt's d/c summ/instructions faxed to [facility] and call to [facility] to cancel referral. Saran MARKHAM CM Addendum entered by Steffany Galvan 09/29/21 15:06: Call from Demetra Whitehead at [facility] and she states they can accept pt. Pt/ updated and info placed on chart. Pt/ voice no further questions/concerns/needs. Saran MARKHAM CM Addendum entered by Steffany Galvan 09/29/21 14:21: Pt's here and this RN CM back to room to clarify d/c plan. would prefer [facility] for pt and pt is agreeable to [facility] at this time and neither state a preference for [facility] company. Referral faxed to [facility] and [facility] for PT/OT. CM to follow. Saran MARKHAM CM Addendum entered by Steffany Galvan 09/29/21 12:50: Per Torie MARKHAM, pt does not qualify for home oxygen. Saran MARKHAM CM Original Note: Per therapy, they are recommending that pt go to SNF for short term rehab. This RN CM to room and pt aware. Pt declines need to go to SNF at this time. Pt also declines [facility] 'd/t dog' but is agreeable to OP therapy at [facility]. 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 Pt states there is only about an hour/day that he is on his own. Pt states has all needed DME. This RASHI ARVIZU advised pt will check back with him once arrives after 1330 today, voices understanding. Saran MARKHAM CM
[2021-09-29] MEDS: Insulin Lispro 100 UNIT/ML INSULN.PEN SC (11:41)
[2021-09-29 11:51] LABS: Bedside Glucose 204 mg/dL (70-110)
--- NOTE | 2021-09-29 14:31 | DS.PCM_ITS ---
Documented by User: Johan PARK 09/29/21 14:43 Providers Date of Admission: 09/24/21 Date of Discharge: 09/29/21 Primary Care Physician: Dr. Kendy Modi MD Consultations 09/24/21 05:18 Consult: Cardiology Routine Consulting Provider: Dorys Askew Reason for Consult: NSTEMI EMERGENT Consult: No MD Notified: Yes Date Notified: 09/24/21 Time Notified: 06:46 Method of Notification: Text 09/29/21 07:32 Consult: Onc/Wound/pool finisher Routine Comment: Reason for Consult:: Ostomy Reason For Visit: NSTEMI Diagnosis Discharge Diagnosis (1) Altered mental status: Status: Acute Code(s): R41.82 - Altered mental status, unspecified Qualifiers: Altered mental status type: unspecified Qualified Code(s): R41.82 - Altered mental status, unspecified (2) UTI (urinary tract infection): Status: Acute Code(s): N39.0 - Urinary tract infection, site not specified Qualifiers: Hematuria presence: without hematuria Urinary tract infection type: acu te cystitis Qualified Code(s): N30.00 - Acute cystitis without hematuria (3) Hypoxia: Status: Acute Code(s): R09.02 - Hypoxemia (4) Non-ST elevation [place] (NSTEMI): Status: Acute Code(s): I21.4 - Non-ST elevation (NSTEMI) myocardial infarction Medications at Discharge Home Medications aspirin 81 mg PO DAILY 03/20/16 duloxetine 60 mg PO DAILY 03/20/16 omeprazole 40 mg PO DAILY 01/09/20 fluticasone propionate 50 mcg/actuation nasal spray,suspension 1 spray INTRANASAL DAILY 12/17/20 gabapentin 300 mg capsule 300 mg PO DAILY 12/17/20 insulin detemir U-100 100 unit/mL (3 mL) subcutaneous pen 50 unit SC BID ml 12/17/20 lisinopril 2.5 mg tablet 2.5 mg PO DAILY 12/17/20 rosuvastatin 20 mg tablet 20 mg PO QHS #90 tab 02/23/21 multivitamin 1 tab PO DAILY 06/22/21 amlodipine [Norvasc] 5 mg PO DAILY 09/26/21 insulin lispro [Humalog KwikPen Insulin] See Rx Instructions SC .COMPLEX 09/26/21 lisinopril 5 mg PO DAILY 09/26/21 carvedilol 3.125 mg PO BID #60 tab 09/29/21 cefdinir 300 mg PO Q12 #4 cap 09/29/21 clopidogrel 75 mg PO DAILY #30 tab 09/29/21 Hospital Course Procedures Cardiac catheterization Summary of Care Provided Minutes Spent on Discharge: 20 Hospital Course: Patient is a 65-year-old male who was admitted to [facility] on 09/24/2021 due to confusion and agitation, subsequently found to have a UTI and elevated troponins due to NSTEMI. Course and management as below. 1) metabolic encephalopathy Resolved, patient is not confused or agitated and is appropriately alert and oriented. Believe patient's encephalopathy be to be metabolic in nature secondary to UTI. Stroke ruled out, brain MRI did not demonstrate any acute infarct or ischemia. UA abnormal, urine culture preliminarily grew E. coli. Blood and sputum cultures demonstrate no growth. Antibiotics deescalated to oral cefdinir based off of sensitivities, continue on discharge for another 2 days. 2) UTI Urine culture demonstrated E. coli. UA with yellow cloudy urine, negative nitrites, 500 leukocyte esterase, greater than 100 urine WBCs seen, 4+ bacteria. Plan as above. 2) Acute hypoxic respiratory failure Resolved. Chest x-ray on admission was suspicious for pneumonia although sputum and blood cultures were unremarkable. Patient respiratory status improved over course of admission even after de-escalation of antibiotics. 3) acute NSTEMI High-sensitivity troponins elevated throughout at 29,000, 24,000 and 74784, respectively. Was assessed by cardiology on 09/24, and was deemed not appro priate for cardiac catheterization due to agitation. Patient was managed on heparin, aspirin, Plavix, statin and beta-blanca during admission admission. Recommendations from cardiology were to pursue medical management on discharge and follow-up within the next 2 weeks. 4) DM2 Sugars elevated throughout admission, patient should follow-up with primary care provider for further tailoring of home regimen. Patient seen by Johan La PA-C, under the supervision of Dr. Robertson. Physical Exam Narrative Patient is a 65-year-old male comfortably resting in bed, alert and orient x3. Patient reports feeling much better from his drowsiness yesterday from the Ativan and denies development of any new symptoms overnight. Does not appear in acute distress. Const alert, oriented x3 and no apparent distress HEENT normocephalic, head/scalp atraumatic and hearing grossly normal bilaterally Eyes PERRL and conjunctivae normal Neck no lymphadenopathy, supple and no JVD Resp normal respiratory effort, no retractions and no use of accessory muscles Cardio regular rate, regular rhythm and no JVD GI normal to inspection, nondistended, normoactive bowel sounds Extremity normal to inspection Skin no rashes or lesions noted Neuro CN's II-XII intact bilaterally Psych affect normal Weight / BMI Weight Weight: 151 lb 14.376 oz Body Mass Index (BMI) 24.3 ABG / Lab / Microbiology Data Result Diagrams: 09/29/21 05:53 09/28/21 06:05 Laboratory: Laboratory Results - last 24 hr 09/28/21 16:53: POC Glucose 200 H 09/28/21 21:09: POC Glucose 174 H 09/29/21 05:53: APTT 65.1 H 09/29/21 05:53: WBC 4.9, RBC 3.92 L, Hgb 10.9 L, Hct 32.9 L, MCV 83.9, MCH 27.8, MCHC 33.1, RDW Std Deviation 44.1 H, RDW Coeff of Maia 14.6, Plt Count 258, MPV 9.7, Immature Gran % (Auto) 0.200, Neut % (Auto) 76.0 H, Lymph % (Auto) 10.5 L, [place] % (Auto) 8.2, Eos % (Auto) 4.7, Baso % (Auto) 0.4, Absolute Neuts (auto) 3.7, Absolute Lymphs (auto) 0.51 L, Nucleated RBC % 0 09/29/21 08:03: POC Glucose 145 H 09/29/21 11:40: POC Glucose 204 H Microbiology: Microbiology 09/24/21 03:03 Blood Culture (Wb) - Right Hand Blood Culture - Final No growth in 5 days. 09/24/21 03:05 Blood Culture (Wb) - Anticubital Left Blood Culture - Final No growth in 5 days. 09/27/21 10:30 Mucosa - Nasopharyngeal Respiratory Panel (PCR) - Final 09/25/21 08:00 Sputum, Induced/Lukens Gram Stain - Final 09/25/21 08:00 Sputum, Induced/Lukens Respiratory Culture - Final 09/24/21 02:25 Urine, Catheterized Urine Culture - Final Presumptive E. coli D/C Instructions Discharge Diet: No restrictions Weight Bearing Status: Weight bearing as tolerated Call your doctor if you observe: Fever of 101 or Higher, Numbness or Tingling, Shortness of breath, Dizziness, Chest pain, Increased palpitations (irregular heartbeat) and Calf discomfort Please Follow Up With: Primary care provider When: Within the next two weeks. Meaningful Use Info Meaningful Use Diagnoses (Choose all that apply): AMI AMI/Post PCI/Angioplasty Aspirin given w/in 24hrs of arrival?: Yes ASA at discharge?: Yes Statins at discharge?: Yes Roberto/ARB at discharge?: Yes Beta Blanca at discharge?: Yes Done w/ Acute AK measure.: No Discharge Plan Admission Admit Date/Time: 09/24/21 04:06 Primary Reason for Your Visit: Confusion Attending Provider: Tay Robertson Primary Care Provider: Kendy Modi Consulting Providers: Dorys Askew Discharge Orders/Prescriptions Prescriptions: New clopidogrel 75 mg Tablet 75 mg PO DAILY Qty: 30 RF: 0 carvedilol 3.125 mg Tablet 3.125 mg PO BID Qty: 60 RF: 0 cefdinir 300 mg Capsule 300 mg PO Q12 Qty: 4 RF: 0 Continued lisinopril 2.5 mg tablet 2.5 mg PO DAILY RF: 0 gabapentin 300 mg capsule 300 mg PO DAILY RF: 0 fluticasone propionate [Flonase Allergy Relief] 50 mcg/actuation spray,suspension 1 spray intranasal DAILY RF: 0 multivitamin [Daily Multi-Vitamin] Tablet 1 tab PO DAILY RF: 0 aspirin 81 MG tablet,chewable 81 mg PO DAILY RF: 0 duloxetine 60 MG capsule,delayed release(DR/EC) 60 mg PO DAILY RF: 0 insulin detemir U-100 100 unit/mL (3 mL) insulin pen 50 unit SC BID RF: 0 omeprazole 40 MG capsule,delayed release(DR/EC) 40 mg PO DAILY RF: 0 amlodipine [Norvasc] 5 mg tablet 5 mg PO DAILY RF: 0 lisinopril 5 mg tablet 5 mg PO DAILY RF: 0 insulin lispro [Humalog KwikPen Insulin] 100 unit/mL insulin pen See Rx Instructions SC .COMPLEX RF: 0 rosuvastatin 20 mg tablet 20 mg PO QHS Qty: 90 RF: 3 Referrals / Follow Up: Kendy Modi MD [Primary Care Provider] - Within 2 Weeks Dwayne Gee MD [STAFF PHYSICIAN] - 10/15/21 10:30 am Disposition Disposition (needs filled in before D/C Order can be placed): Home Health Service Documented by User: Dr. Tay Robertson MD 09/29/21 15:13 Providers Date of Admission: 09/24/21 Reason For Visit: NSTEMI Medications at Discharge Home Medications aspirin 81 mg PO DAILY 03/20/16 duloxetine 60 mg PO DAILY 03/20/16 omeprazole 40 mg PO DAILY 01/09/20 fluticasone propionate 50 mcg/actuation nasal spray,suspension 1 spray INTRANASAL DAILY 12/17/20 gabapentin 300 mg capsule 300 mg PO DAILY 12/17/20 insulin detemir U-100 100 unit/mL (3 mL) subcutaneous pen 50 unit SC BID ml 12/17/20 lisinopril 2.5 mg tablet 2.5 mg PO DAILY 12/17/20 rosuvastatin 20 mg tablet 20 mg PO QHS #90 tab 02/23/21 multivitamin 1 tab PO DAILY 06/22/21 amlodipine [Norvasc] 5 mg PO DAILY 09/26/21 insulin lispro [Humalog KwikPen Insulin] See Rx Instructions SC .COMPLEX 09/26/21 lisinopril 5 mg PO DAILY 09/26/21 carvedilol 3.125 mg PO BID #60 tab 09/29/21 cefdinir 300 mg PO Q12 #4 cap 09/29/21 clopidogrel 75 mg PO DAILY #30 tab 09/29/21 Hospital Course Operations None Summary of Care Provided Minutes Spent on Discharge: 45 Hospital Course: This patient was seen in conjunction with Johan La PA-C. I have independently interviewed and examined the patient and reviewed pertinent historical, laboratory, and other data. Please refer to Johan La PA-C's note for details of this patient's presentation, findings, and recommendations. I have reviewed Johan La PA-C's note and concur with documented findings. In brief, patient is a 65-year-old gentleman admitted with increasing confusion and generalized weakness. Assessment of pneumonia as well as UTI admitted admitted to a monitored bed where patient has since been managed. Patient was also found to have markedly elevated troponin consistent with acute non-STEMI cardiology consulted 09/28/2021; patient seen much more lethargic compared to previous day. Patient had apparently received Ativan during the night for agitation. 09/29/2021; patient seen back to baseline patient will be assessed for discharge Physical Examination: GENERAL: Cooperative HEENT: Atraumatic; EYES; Anicteric, Normal Conjunctiva NECK; supple, normal thyroid, RESPIRATORY: Diminished to auscultation CARDIOVASCULAR: Regular S1 S2, GI: soft, normoactive bowel sounds, : No Renal angle tenderness; EXTREMITIES: No edema, no clubbing, MUSCULOSKELETAL: no muscle wasting NEURO: Awake; no lateralizing signs. SKIN: No Rash PSYCH; Flat affect Assessment: 1. Acute metabolic encephalopathy 2. Acute UTI 3. Pneumonia 4. Acute non-STEMI 5. Acute hypoxic respiratory failure 6. Diabetes mellitus type 2 7. Coronary artery disease with previous CABG and subsequent PCI 8. History of colorectal CA currently in remission 9. Ischemic cardiomyopathy 10. GERD 11. Essential hypertension 12. Obstructive sleep apnea 13. Peripheral arterial disease 14. Restrictive lung disease 15. Obstructive sleep apnea Recommendations: 1. I have discussed the results of my overview and impressions with the patient 2. Options for management were reviewed Total time spent by myself and the advanced practice practitioner evaluating patient, reviewing labs, subsequent management decisions, discussion with maureen stein as well as other providers 45 minutes ( 25 of which was spent by myself) ABG / Lab / Microbiology Data Result Diagrams: 09/29/21 05:53 09/28/21 06:05 Discharge Plan Admission Admit Date/Time: 09/24/21 04:06 Primary Reason for Your Visit: Confusion Attending Provider: Tay Robertson Primary Care Provider: Kendy Modi Consulting Providers: Dorys Askew Discharge Orders/Prescriptions Prescriptions: New clopidogrel 75 mg Tablet 75 mg PO DAILY Qty: 30 RF: 0 carvedilol 3.125 mg Tablet 3.125 mg PO BID Qty: 60 RF: 0 cefdinir 300 mg Capsule 300 mg PO Q12 Qty: 4 RF: 0 Continued lisinopril 2.5 mg tablet 2.5 mg PO DAILY RF: 0 gabapentin 300 mg capsule 300 mg PO DAILY RF: 0 fluticasone propionate [Flonase Allergy Relief] 50 mcg/actuation spray,suspension 1 spray intranasal DAILY RF: 0 multivitamin [Daily Multi-Vitamin] Tablet 1 tab PO DAILY RF: 0 aspirin 81 MG tablet,chewable 81 mg PO DAILY RF: 0 duloxetine 60 MG capsule,delayed release(DR/EC) 60 mg PO DAILY RF: 0 insulin detemir U-100 100 unit/mL (3 mL) insulin pen 50 unit SC BID RF: 0 omeprazole 40 MG capsule,delayed release(DR/EC) 40 mg PO DAILY RF: 0 amlodipine [Norvasc] 5 mg tablet 5 mg PO DAILY RF: 0 lisinopril 5 mg tablet 5 mg PO DAILY RF: 0 insulin lispro [Humalog KwikPen Insulin] 100 unit/mL insulin pen See Rx Instructions SC .COMPLEX RF: 0 rosuvastatin 20 mg tablet 20 mg PO QHS Qty: 90 RF: 3 Referrals / Follow Up: Kendy Modi MD [Primary Care Provider] - Within 2 Weeks Dwayne Gee MD [STAFF PHYSICIAN] - 10/15/21 10:30 am Disposition Disposition (needs filled in before D/C Order can be placed): Home Health Service Charges/Coding Visit Charges Inpatient E&M: 56286 Disch Hosp Hospital Course Consultations Consultations: Consultations 09/24/21 05:18 Consult: Cardiology Routine Consulting Provider: Dorys Askwe Reason for Consult: NSTEMI EMERGENT Consult: No MD Notified: Yes Date Notified: 09/24/21 Time Notified: 06:46 Method of Notification: Text 09/29/21 07:32 Consult: Onc/Wound/pool finisher Routine Comment: Reason for Consult:: Ostomy Operations None
== END 2021-09-29 16:00 | disposition home health service (06) | DRG 280 ==
LOC: ED 03:59 → PCU 04:33
PROVIDERS: Family Medicine; Hospitalist; Physician Assistant; Admitting Provider Internal Medicine; Emergency Provider Emergency Medicine; PCP Family Medicine; Visit Provider Internal Medicine
DX: I21.4 Non-ST elevation (NSTEMI) myocardial infarction (principal); J18.9 Pneumonia, unspecified organism; J96.01 Acute respiratory failure with hypoxia; G93.41 Metabolic encephalopathy; I69.354 Hemiplegia and hemiparesis following cerebral infarction affecting left non-dominant side; N30.00 Acute cystitis without hematuria; I25.708 Atherosclerosis of coronary artery bypass graft(s), unspecified, with other forms of angina pectoris; I65.01 Occlusion and stenosis of right vertebral artery; E11.40 Type 2 diabetes mellitus with diabetic neuropathy, unspecified; Z79.4 Long term (current) use of insulin; E11.51 Type 2 diabetes mellitus with diabetic peripheral angiopathy without gangrene; I25.119 Atherosclerotic heart disease of native coronary artery with unspecified angina pectoris; Z93.3 Colostomy status; B96.20 Unspecified Escherichia coli [E. coli] as the cause of diseases classified elsewhere; I10 Essential (primary) hypertension; E78.5 Hyperlipidemia, unspecified; I16.0 Hypertensive urgency; K21.9 Gastro-esophageal reflux disease without esophagitis; G47.33 Obstructive sleep apnea (adult) (pediatric); I25.5 Ischemic cardiomyopathy; J98.4 Other disorders of lung; I25.2 Old myocardial infarction; M19.90 Unspecified osteoarthritis, unspecified site; Z79.82 Long term (current) use of aspirin; Z20.822 Contact with and (suspected) exposure to COVID-19; R13.10 Dysphagia, unspecified; Z79.899 Other long term (current) drug therapy; Z95.1 Presence of aortocoronary bypass graft; Z85.038 Personal history of other malignant neoplasm of large intestine; Z95.5 Presence of coronary angioplasty implant and graft
CPT/HCPCS: 36415; 36600; 70496; 70498; 70551; 71045; 71275; 80048; 80053; 80076; 80202; 81001; 82140; 82803; 82962; 84484; 85025; 85610; 85730; 87040; 87070; 87077; 87086; 87088; 87186; 87205; 87633; 87635; 92526; 93005; 93306; 94002; 94003; 94762; 97110; 97116; 97162; 97166; 97530; 97535; 97802; 99251; 99285; J7030; J7040; J7050; Q9967; 90686; A4216; G0463; J1940; U0003; U0005

== ENCOUNTER 2021-10-27 06:24 | Outpatient (CLI) | payer BC, SELFPAY ==
[2021-10-27 10:06] LABS: AST(SGOT) 31 U/L (15-37); Alanine Aminotransfer ALT/SGPT 33 U/L (16-61); Albumin, Serum 3.4 g/dL (3.2-5.0); Alkaline Phosphatase 108 U/L (45-117); Bilirubin, Direct 0.09 mg/dL (0.00-0.30); Cholesterol 146 mg/dL (200); High Density Lipoprotein 33 mg/dL; Protein, Total 7.4 g/dL (6.4-8.2); Triglycerides 185 mg/dL; Very Low Density Lipoprotein 37 mg/dL (5-40)
--- NOTE | 2021-10-27 19:21 | STRESSREP_ITS ---
Stress Test Report Date: 10-27-2021 Procedure: Pharmacologic stress nuclear imaging study Indications: Shortness of breath/dyspnea on exertion; chest pain; CAD; PCI; CABG; non-ST segment elevation DE; chronic pulmonary disease Consent: Per the patient Procedure: The patient underwent pharmacologic (Regadenoson 0.4mg ) evaluation with a peak heart rate of 86 beats per minute (54%predicted maximal heart rate) and a peak blood pressure of 130/82 mmHg. The baseline ECG demonstrated normal sinus rhythm. The peak pharmacologic ECG demonstrated no obvious ECG changes. There were no cardiac dysrhythmias pretest, during pharmacologic infusion, or recovery. There was no complaint of chest discomfort during pharmacologic infusion or recovery. The examination was discontinued secondary to completion of protocol. Impression: 1. Pharmacologic (Regadenoson) evaluation 2. Peak pharmacologic ECG with no obvious ECG changes. 3. There were no cardiac dysrhythmias pretest, during pharmacologic infusion, or recovery. 4. Nuclear images pending Myocardial perfusion imaging study: Technique: The patient was injected with 11.1 millicuries of technetium 99m Cardiolite and subsequently rest SPECT Cardiolite nuclear imaging was obtained in the horizontal long, vertical long, and short axis views. The patient underwent pharmacologic (Regadenoson) evaluation with a peak heart rate of 86 beats per minute (54% percent predicted maximal heart rate) and a peak blood pressure of 130/82 mmHg. The patient was injected with 32.8 millicuries of technetium 99m Cardiolite and subsequently stress SPECT Cardiolite nuclear imaging was obtained in the horizontal long, vertical long, and short axis views. A gated Cardiolite study at peak stress was obtained. Interpretation: Rest and stress SPECT Cardiolite nuclear imaging status post realignment, normalization, and attenuation correction demonstrate a small area of subtle diminished tracer uptake near the distal anteroseptal/septal apical segments without significant change between rest and stress. There is end systolic thickening and brightening. The gated Cardiolite study demonstrates myocardial thickening and inward wall motion. The reported LVEF is 44%. Impression: 1. Rest and stress SPECT her nuclear imaging demonstrate myocardial perfusion changes potentially compatible with an area of previous myocardial injury/infarction in the distal anteroseptal/septal apical segments, however, an element of physiologic apical thinning cannot necessarily be excluded, with no myocardial perfusion changes considered diagnostic for associated stress-induced myocardial ischemia. 2. The gated Cardiolite study reports an LVEF of 44%. This note was generated with [employer] software. It may contain incorrect words, spelling, and punctuation that were not noted in checking the note before signing.
== END 2021-10-27 23:59 | disposition home or self-care (01) ==
LOC: CVS 06:25
PROVIDERS: PCP Family Medicine; Visit Provider Nurse Practitioner Gerontology
DX: E78.5 Hyperlipidemia, unspecified (principal)
CPT/HCPCS: 36415; 78452; 80061; 80076; 93017; A9500; A4216; J2785

== ENCOUNTER → 2022-05-16 | Outpatient (CLI) | payer BC, SELFPAY ==
--- NOTE | 2022-05-16 15:12 | CT_ITS ---
STUDY: CT MAXILLOFACIAL SINUSES REASON FOR EXAM: Male, 66 years old. CHRONIC SINUSITIS RADIATION DOSAGE (If Supplied By Facility): CTDIvol = ( 33.06 ) mGy, DLP = ( 833.85 ) mGycm TECHNIQUE: The patient was scanned in a multi detector CT scanner. High resolution axial imaging was performed without the administration of intravenous contrast material. Sagittal and coronal images were reconstructed. Individualized dose optimization techniques were used for this CT. COMPARISON: Comparison is made with prior radiographs of the sinuses dated 08/02/2016. FINDINGS: FRONTAL SINUSES: Normal aeration, without mucosal inflammatory disease. ETHMOIDAL SINUSES: Normal aeration, without mucosal inflammatory disease. MAXILLARY SINUSES: Normal aeration, without mucosal inflammatory disease. SPHENOIDAL SINUSES: Minimal mucosal thickening along the anterior lateral aspect of the right sphenoid sinus. There is patency of the bilateral maxillary infundibuli with normal uncinate processes, ethmoid bullae, and hiatus semilunaris. Normal bilateral middle turbinates. Normal bilateral inferior turbinates. Normal midline nasal septum. There is patency of the bilateral nasal airways. The visualized osseous structures are normal. The visualized bilateral orbital contents are normal. CT/Sinus/Facial Bone IMPRESSION: Minimal degree of the mucosal thickening along the anterior lateral aspect of the right sphenoid sinus. Electronically Signed: Navdeep Gonzales MD at 15:48 EDT ,
== END | disposition home or self-care (01) ==
LOC: CT 14:57
PROVIDERS: PCP Family Medicine; Referring Provider Otolaryngology; Visit Provider Otolaryngology
DX: J32.8 Other chronic sinusitis (principal)
CPT/HCPCS: 70486

== ENCOUNTER → 2022-10-05 | Outpatient (CLI) | payer BC, SELFPAY ==
[2022-10-05 18:26] LABS: AST(SGOT) 34 U/L (15-37); Alanine Aminotransfer ALT/SGPT 35 U/L (16-61); Albumin, Serum 3.4 g/dL (3.2-5.0); Alkaline Phosphatase 107 U/L (45-117); Anion Gap 9 (5-15); BUN 22 mg/dL (7-18); Calcium,Total 8.8 mg/dL (8.5-10.1); Chloride 102 mmol/L (98-107); Cholesterol 161 mg/dL (200); Creatinine, Serum 0.92 mg/dL (0.70-1.30); EST Glomerular Filtration Rate 88 mL/min (>60); Est Glom Filt Rate - Afr Amer 107 mL/min (>60); Globulin 3.9 g/dL (2.2-4.2); Glucose 111 mg/dL (74-106); High Density Lipoprotein 30 mg/dL; PSA,Total - Annual Screen 0.92 ng/mL (0.00-4.00); Potassium 3.9 mmol/L (3.5-5.1); Protein, Total 7.3 g/dL (6.4-8.2); Sodium Level 138 mmol/L (136-145); Triglycerides 186 mg/dL; Very Low Density Lipoprotein 37 mg/dL (5-40)
== END | disposition home or self-care (01) ==
LOC: MFPLAB 15:03
PROVIDERS: PCP Family Medicine; Referring Provider Family Medicine; Visit Provider Family Medicine
DX: E11.9 Type 2 diabetes mellitus without complications (principal); Z12.5 Encounter for screening for malignant neoplasm of prostate
CPT/HCPCS: 36415; 80048; 80061; 80076; 82043; 82570; 84153; G0103

== ENCOUNTER → 2022-10-07 | Outpatient (CLI) | payer BC, SELFPAY ==
[2022-10-07 15:37] LABS: Microalbumin,Random Urine 56.5 mg/L (NO RANGE EST.); Microalbumin:Creatinine Ratio 20.5 mg/g CRE (<30 mg/g CRE)
== END | disposition home or self-care (01) ==
PROVIDERS: PCP Family Medicine; Referring Provider Family Medicine; Visit Provider Family Medicine
DX: E11.9 Type 2 diabetes mellitus without complications (principal)
CPT/HCPCS: 82043; 82570

== ENCOUNTER 2023-03-10 11:52 | Observation (INO) | payer BC, MEDICARE, OTHER, SELFPAY ==
[2023-03-10] VITALS (10 sets, daily range): BP systolic 88–167; BP diastolic 49–74; PULSE 69–78; RESP 14–17; TEMP 35.8–36.7; O2SAT 94–98; BMI 24.5; BMI 24.1
--- NOTE | 2023-03-10 12:11 | CT_ITS ---
STUDY: CT BRAIN WITHOUT CONTRAST REASON FOR EXAM: Male, 67 years old. Injury WITH SYNCOPE RADIATION DOSAGE (If Supplied By Facility): CTDIvol = ( 44.99 ) mGy, DLP = ( 846.73 ) mGycm TECHNIQUE: Transaxial CT imaging of the brain was performed without administration of intravenous contrast material. Individualized dose optimization techniques were used for this CT. COMPARISON: Comparison is made with prior study dated September 23, 2021. FINDINGS: Normal soft tissue structures. Normal calvarium. Normal size ventricles and extra-axial spaces for the patient''s age. Normal white matter tracts of the cerebral hemispheres. Stable appearance of the old lacunar infarcts in the basal ganglia bilaterally. Normal brainstem. There is mild cerebellar atrophy. Stable prominence of the cisterna magna. There is no intracranial hemorrhage. There are no findings of an acute ischemic infarction. Normal visualized paranasal sinuses. CT/Brain/Head without Contrast IMPRESSION: Chronic involutional changes of the brain. Stable lacunar infarcts involving both basal ganglia. Electronically Signed: Navedep Gonzales MD at 12:48 EDT ,
--- NOTE | 2023-03-10 12:11 | EKG12_ITS ---
Test Reason : DIZZY Blood Pressure : / mmHG Vent. Rate : 071 BPM Atrial Rate : 071 BPM P-R Int : 164 ms QRS Dur : 092 ms QT Int : 410 ms P-R-T Axes : 053 011 075 degrees QTc Int : 445 ms Normal sinus rhythm Normal ECG Confirmed by CARLOS MANUEL MONTE, SAMSON ([id number]), video news editor RY AU ([id number]) on 03/13/2023 1:12:22 PM Referred By: Confirmed By:SAMSON HOROWITZ MD
--- NOTE | 2023-03-10 12:13 | EX.ED.DYSGE1 ---
HPI History of Present Illness Chief Complaint: Dizziness Detail of Chief Complaint: Near syncope Informant: patient and spouse/S.O. Onset/Context/Timing Onset: Today Narrative Narrative: Patient presents with 2 episodes of near syncope today. He states this morning he got up and walked into his bathroom. He states the next thing he remembers he was reaching for the sink and fell to the floor. He hit his back and did hit his head off the floor. He did not get knocked out. He states after laying there for a few minutes he was able to get up. He felt somewhat weak. He did eat and take his normal meds today. He came to the hospital for some testing and after lying for his procedure stood up and got lightheaded, everything went black, and his arms and legs stiffened. He was lowered back to the seated position and brought to the emergency room for evaluation. Patient denies having chest pain or palpitations. He states he has had episodes similar to this in the past but was never given an actual diagnosis. 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 Cancer Cardiology follow-up encounter Carotid artery disease Colorectal cancer CPAP (continuous positive airway pressure) dependence CVA (cerebral vascular accident) Depression Diabetic neuropathy Dietary restriction Dyslipidemia Dysphagia Essential hypertension Gastric reflux GERD (gastroesophageal reflux disease) High cholesterol History of echocardiogram History of heart attack History of pain when walking History of stress test HTN (hypertension) Injury of back Injury of head and neck 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 Leg cramps Loss of hearing Non-smoker Obstructive sleep apnea ALEJANDRO (obstructive sleep apnea) Peripheral vascular occlusive disease Restless legs Restrictive lung disease Shortness of breath on exertion Syncope Type 2 diabetes mellitus Walker as ambulation aid Wears glasses Home Medications aspirin 81 mg chewable tablet 81 mg PO DAILY heart health 03/20/16 [History Last Taken 09/23/21] duloxetine 60 mg capsule,delayed release 60 mg PO DAILY depression 03/20/16 [History Last Taken 09/23/21] omeprazole 40 mg capsule,delayed release 40 mg PO DAILY gerd 01/09/20 [History Last Taken 09/22/21] fluticasone propionate 50 mcg/actuation nasal spray,suspension (Flonase Allergy Relief) 1 spray intranasal DAILY allergies 12/17/20 [History Last Taken 09/22/21] gabapentin 300 mg capsule 300 mg PO DAILY neuropathy 12/17/20 [History Last Taken 09/23/21] insulin detemir U-100 100 unit/mL (3 mL) subcutaneous pen 50 unit subcut BID blood sugar 12/17/20 [History Last Taken 09/22/21] multivitamin (Daily Multi-Vitamin tablet) 1 tab PO DAILY vitamin 06/22/21 [History Last Taken 09/23/21] insulin lispro 100 unit/mL subcutaneous pen (Humalog KwikPen (U-100) Insulin) See Rx Instructions subcut .COMPLEX diabetes 09/26/21 [History Last Taken Unknown] nitroglycerin 0.4 mg sublingual tablet 0.4 mg sublingual Q5M PRN chest pain #25 tabs 10/15/21 [Rx Last Taken Unknown] lisinopril 5 mg tablet 5 mg PO DAILY blood pressure #90 tabs 09/26/22 [Rx Last Taken Unknown] carvedilol 3.125 mg tablet 3.125 mg PO BID #180 tabs 10/03/22 [Rx Last Taken Unknown] clopidogrel 75 mg tablet 75 mg PO DAILY #90 tabs 10/10/22 [Rx Last Taken Unknown] amlodipine 5 mg tablet (Norvasc) 5 mg PO DAILY blood pressure #90 tabs 12/28/22 [Rx Last Taken Unknown] rosuvastatin 20 mg tablet 20 mg PO QHS cholesterol #90 tabs 02/13/23 [Rx Last Taken Unknown] Allergy/AdvReac Type Severity Reaction Status Date / Time No Known Allergies Allergy Verified 03/10/23 11:52 Family History Father CAD (coronary artery disease) Hypertension Cancer leukemia Diabetes Heart disease High cholesterol Mother CVA (cerebral vascular accident) Diabetes Breast cancer Brother Diabetes Surgical History Excision Max.Zygoma Face Tumor H/O coronary artery bypass surgery (05/30/08) History of bilateral cataract extraction History of coronary artery stent placement (01/02/15) History of eye surgery History of herniorrhaphy History of left heart catheterization (LHC) (~01/22/15) History of right and left heart catheterization (LHC) (~12/25/14) History of right-sided carotid endarterectomy History of tonsillectomy PTCA Left Anterior Tibial and Paroneal Artery Social History Smoking Status: Never smoker alcohol intake: never substance use type: does not use caffeine: Yes what type of physical activity do you participate in: none ROS ROS ED Constitutional Constitutional ED: Denies chills or fever(s) Eyes Eyes: Denies change in vision ENT ENT ED: Denies rhinorrhea or sore throat Cardiovascular Cardiovascular: Denies chest pain or palpitations Respiratory/Chest Respiratory/Chest: Denies cough or dyspnea Gastrointestinal Gastrointestinal: Denies abdominal pain, diarrhea, nausea or vomiting Genitourinary Genitourinary ED: Denies difficulty urinating or dysuria Musculoskeletal Musculoskeletal: Denies back pain or extremity pain Integumentary Denies Abrasions or rash Neurologic Neurologic: Reports weakness; Denies headache(s) Psychiatric Psychiatric: Denies anxiety or depression Allergic/Immunologic Allergic/Immunologic ED: Denies lip swelling or urticaria EXAM Physical Exam Const Vital Signs: 03/10/23 11:53 03/10/23 11:52 03/10/23 13:52 Temperature 98 F Temperature Source Temporal Pulse Rate 72 75 Pulse Rate [Lying] Pulse Rate [Sitting (for 1 minute prior to obtaining)] Pulse Rate [Standing (for 1 minute prior to obtaining)] Respiratory Rate 14 14 Respiratory Effort Normal Respiratory Pattern Normal Blood Pressure 127/63 H 137/66 H Blood Pressure [Lying] Blood Pressure [Sitting (for 1 minute prior to obtaining)] Blood Pressure [Standing (for 1 minute prior to obtaining)] Blood Pressure Mean 84 89 Blood Pressure Mean [Lying] Blood Pressure Mean [Sitting (for 1 minute prior to obtaining)] Blood Pressure Mean [Standing (for 1 minute prior to obtaining)] Pulse Ox 96 98 Oxygen Delivery Method Room Air Room Air 03/10/23 14:21 03/10/23 15:00 03/10/23 16:25 Temperature Temperature Source Pulse Rate 71 Pulse Rate [Lying] 75 73 Pulse Rate [Sitting (for 1 minute prior to obtaining)] 72 73 Pulse Rate [Standing (for 1 minute prior to obtaining)] 72 72 Respiratory Rate 15 Respiratory Effort Respiratory Pattern Blood Pressure 148/65 H Blood Pressure [Lying] 137/66 H 95/52 L Blood Pressure [Sitting (for 1 minute prior to obtaining)] 125/63 H 127/49 H Blood Pressure [Standing (for 1 minute prior to obtaining)] 88/49 L 138/57 H Blood Pressure Mean 92 Blood Pressure Mean [Lying] 89 66 Blood Pressure Mean [Sitting (for 1 minute prior to obtaining)] 83 75 Blood Pressure Mean [Standing (for 1 minute prior to obtaining)] 62 84 Pulse Ox 98 Oxygen Delivery Method Room Air Positive well nourished and well developed General Appearance ED: well developed HEENT Reports normocephalic and head/scalp atraumatic Eyes PERRL and EOMs intact bilaterally Neck supple Chest Wall inspection of chest normal and palpation of chest normal Resp normal respiratory effort and clear to auscultation bilaterally Cardio regular rate and regular rhythm GI normal to inspection, nondistended, normoactive bowel sounds Palpation: soft Extremity normal to inspection Neuro oriented x3 and no sensory deficits noted Sensorium / Orientation: alert Motor Exam: strength 5/5 throughout Psych mental status grossly normal Skin no rashes or lesions noted MDM MDM MDM Narrative Medical decision making narrative: Patient placed on research center partner. EKG obtained to evaluate for cardiac arrhythmia/ischemia. Labwork obtained to evaluate for leukocytosis, anemia, and electrolyte derangement. Urinalysis obtained to evaluate for infection/hematuria. CT scan of the head obtained given his fall with head injury. Patient ordered 1 L IV fluids. Lab Data Attestation: I reviewed the patient's lab results. Labs: Laboratory Results - last 24 hr 03/10/23 03/10/23 12:10 14:22 WBC 8.1 RBC 4.64 Hgb 13.0 Hct 40.6 MCV 87.5 MCH 28.0 MCHC 32.0 RDW Std Deviation 45.3 H RDW Coeff of Maia 14.2 Plt Count 295 MPV 9.4 Immature Gran % (Auto) 0.500 Neut % (Auto) 79.4 H Lymph % (Auto) 10.6 L Pender % (Auto) 8.5 Eos % (Auto) 0.5 Baso % (Auto) 0.5 Absolute Neuts (auto) 6.4 Absolute Lymphs (auto) 0.86 Nucleated RBC % 0 Sodium 139 Potassium 4.3 Chloride 104 Carbon Dioxide 31.0 Anion Gap 4 L BUN 20 H Creatinine 1.16 Estim Creat Clear Calc 59.36 Est GFR (MDRD) Af Amer 81 Est GFR (MDRD) Non-Af 67 BUN/Creatinine Ratio 17.2 Glucose 141 H Calcium 8.8 Troponin I High Sens 12 Urine Color Yellow Urine Clarity Clear Urine pH 6.0 Ur Specific [place] 1.015 Urine Protein 15 H Urine Glucose (UA) 50 H Urine Ketones Negative Urine Occult Blood Negative Urine Nitrite Negative Urine Bilirubin Negative Urine Urobilinogen Normal Ur Leukocyte Esterase Negative Urine RBC 0 SEEN Urine WBC 0 SEEN Ur Squamous Epith Cells 0 SEEN Urine Bacteria 0 SEEN Urine Mucus 0 SEEN Radiography Chest X-Ray - ED: 1 View, Read by ED Physician and Chronic Changes Diagnostic Testing: Clinical Impression(s) from Imaging Studies Brain CT 03/10/23 12:11 IMPRESSION: Chronic involutional changes of the brain. Stable lacunar infarcts involving both basal ganglia. Electronically Signed: Navdeep Gonzales MD at 12:48 EDT , Chest X-Ray 03/10/23 12:31 IMPRESSION: Cardiomegaly, sternotomy wires, aortic tortuosity and mild hyperinflation. No active or acute cardiopulmonary disease. Electronically Signed: Jhon Siddiqui MD at 12:44 EDT , EKG Initial EKG: Attestation: I personally reviewed and interpreted this EKG as follows: Interpretation: Sinus Rhythm (Sinus at 71 with no acute ischemia.) Treatment and Re-Evaluation :: CBC was normal white count 8.1 with a hemoglobin of 13. Chemistry studies significant for BUN of 20 which appears consistent with his baseline. Creatinine is 1.16. Glucose is 141. Urinalysis is unremarkable with no infection. He has no ketones in his urine. Chest x-ray per my interpretation reveals chronic changes with no acute findings. Radiology interpretation is reviewed and agrees. CT scan of the head reveals chronic involutional changes with stable lacunar infarcts. After 1 L of IV fluid, orthostatic vital signs are obtained. Patient's blood pressure goes from 137/66 while lying to 88/49 while standing. Heart rate does not significantly change. Patient is given a second liter of IV fluid. Orthostatic vital signs are repeated. Again his blood pressure dropped from 138/57 to 95/52 when standing. With patient having continued orthostasis despite 2 L of IV fluid, I will speak with hospitalist regarding observation. He will likely need to have his blood pressure medications adjusted. Discharge Plan Triage Chief Complaint: Dizziness ED Provider: Citlali Zurita Dx/Rx/DC Orders Clinical Impression: Orthostatic hypotension, Near syncope Prescriptions: No Action gabapentin 300 mg capsule 300 mg PO DAILY fluticasone propionate [Flonase Allergy Relief] 50 mcg/actuation spray,suspension 1 spray intranasal DAILY Rx Instructions: administer into each nostril multivitamin [Daily Multi-Vitamin] Tablet 1 tab PO DAILY nitroglycerin 0.4 mg tablet, sublingual 0.4 mg sublingual Q5M PRN (Reason: chest pain) Qty: 25 3RF Rx Instructions: do not exceed 3 doses per episode aspirin 81 MG tablet,chewable 81 mg PO DAILY Patient Comments: heart health duloxetine 60 MG capsule,delayed release(DR/EC) 60 mg PO DAILY Patient Comments: antidepressant insulin detemir U-100 100 unit/mL (3 mL) insulin pen 50 unit SC BID omeprazole 40 MG capsule,delayed release(DR/EC) 40 mg PO DAILY insulin lispro [Humalog KwikPen Insulin] 100 unit/mL insulin pen See Rx Instructions SC .COMPLEX Rx Instructions: Take 17 units each meal plus sliding scale up to 65 units daily lisinopril 5 mg tablet 5 mg PO DAILY Qty: 90 3RF carvedilol 3.125 mg tablet 3.125 mg PO BID Qty: 180 3RF clopidogrel 75 mg tablet 75 mg PO DAILY Qty: 90 3RF amlodipine [Norvasc] 5 mg tablet 5 mg PO DAILY Qty: 90 3RF rosuvastatin 20 mg tablet 20 mg PO QHS Qty: 90 3RF Primary Care Provider: Kendy Modi Referrals: Kendy Modi MD [Primary Care Provider] - Disposition Disposition: Acute Care Hospital [facility]
[2023-03-10] MEDS: 0.9% Normal Saline 1,000 ML 1000 ML IV (12:18)
[2023-03-10 12:24] LABS: Absolute Lymphocyte Count 0.86 X10^3/uL (0.83-4.51); Absolute Neutrophil Count 6.4 X10^3/uL (2.0-7.7); Basophil# 0.04 X10^3/uL; Basophil% 0.5 % (0-1); Eosinophil# 0.04 X10^3/uL; Eosinophils% 0.5 % (0-5); Hematocrit 40.6 % (40-54); Lymphocyte # 0.86 X10^3/ul (0.83-4.51); Lymphocyte % 10.6 % (19-41); Mean Corpuscular Volume 87.5 fL (80-94); Mean Platelet Vol. 9.4 fl (6.2-12.0); Monocyte# 0.69 X10^3/uL; Monocyte% 8.5 % (0-10); NRBC Flagged by Analyzer 0 % (0-5); Neutrophil # 6.44 X10^3/uL (2.7-7.7); Neutrophil % 79.4 % (47-70); Platelet Count 295 K/mm3 (150-450); RBC Distribution Width CV 14.2 % (11.6-14.6); RBC Distribution Width SD 45.3 fl (35.1-43.9); Red Blood Count 4.64 M/mm3 (4.6-6.2); White Blood Count 8.1 K/mm3 (4.4-11.0)
--- NOTE | 2023-03-10 12:31 | RAD_ITS ---
STUDY: X-RAY CHEST REASON FOR EXAM: Male, 67 years old. Shortness of breath. TECHNIQUE: Single frontal view of the chest. COMPARISON: Chest dated September 2021. FINDINGS: Resolution of interstitial pattern on the prior study. Cardiomegaly, sternotomy wires, aortic tortuosity and mild hyperinflation. Incidentally noted is a healing proximal left humeral fracture. No active or acute cardiopulmonary disease. No abnormality of the visualized soft tissue structures of the upper abdomen. RAD/Chest 1 View (Portable) IMPRESSION: Cardiomegaly, sternotomy wires, aortic tortuosity and mild hyperinflation. No active or acute cardiopulmonary disease. Electronically Signed: Jhon Siddiqui MD at 12:44 EDT ,
[2023-03-10 12:38] LABS: Anion Gap 4 (5-15); BUN 20 mg/dL (7-18); BUN/Creat Ratio 17.2 RATIO (10-20); Calcium,Total 8.8 mg/dL (8.5-10.1); Chloride 104 mmol/L (98-107); Creatinine, Serum 1.16 mg/dL (0.70-1.30); EST Glomerular Filtration Rate 67 mL/min (>60); Est Glom Filt Rate - Afr Amer 81 mL/min (>60); Estimated Creatinine Clearance 59.36 ml/min; Glucose 141 mg/dL (74-106); Potassium 4.3 mmol/L (3.5-5.1); Sodium Level 139 mmol/L (136-145); Troponin-I HS 12 pg/mL (3.0-78.0)
[2023-03-10 14:31] LABS: Bacteria 0 SEEN /hpf (None Seen); Mucous, Urine 0 SEEN /hpf (<or=2+); Red Blood Cells-Urine 0 SEEN /hpf (0-5); Squamous Epithelial Cells - UA 0 SEEN /hpf (0-5)
[2023-03-10 14:42] LABS: Color, Urine Yellow (Yellow); Glucose, Dipstick 50 mg/dl (Normal); Ketone-Dipstick Negative (Negative); Leukocyte Esterase-Dipstick Negative /ul (Negative); Nitrite-Dipstick Negative (Negative); Occult Blood-Urine Negative /ul (Negative); Protein-Dipstick 15 mg/dl (Negative); Specific Gravity, Urine 1.015 (1.002-1.030); Urine Bilirubin Dipstick Negative (Negative); Urine Clarity Clear (Clear); Urine Urobilinogen Normal (Normal)
[2023-03-10] MEDS: 0.9% Normal Saline 1,000 ML 999 ML IV (15:12)
[2023-03-10 15:29] LABS: White Blood Cells 0 SEEN /hpf (0-5)
--- NOTE | 2023-03-10 16:44 | PCM.HP.STD ---
HPI - General General Date of Admission: 03/10/23 Date of Service: 03/10/23 Chief Complaint: Near syncope 2 episodes today. HPI Narrative MITCH VEGA, is a 67 M was sent to ED from wound nurse Ai after he had syncopal episode while changing the stoma dressing. Before that, he woke up in the morning feeling dizzy and lightheaded while walking to bathroom and then fell in the bathroom hitting the back of the head. He states he did not passed out. Then he came to see Ai, wound nurse for change his colostomy dressing. While trying to stand up after laying down position for stoma dressing, he felt dizzy, his body got stiff and felt black before eyes but did not pass out. Ai asked is he okay but he did not respond therefore sent to ED. Denies chest pain pressure tightness or palpitation. He had similar episode in the past but does not remember well. In ED, orthostatic vitals shows a drop in blood pressure from systolic 137-88 diastolic from 66-49 from supine to standing position. But his heart rate did not change. Second time his blood pressure was 95/52 on seven-point and increased to 138/57 with standing. His baseline blood pressure is 127/63 heart rate in 70s. Patient is having second unit of normal saline bolus running. Twelve-lead EKG shows normal sinus rhythm 71 beats 1, QTc [address]-T changes. His previous EKG was also normal in September 2021. Patient has history of coronary artery disease status post CABG and follows Dr. Smith and Johan lynn NP, last clinic visit January 2023 [facility] Medical History Anxiety disorder Arthritis 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 Cancer Cardiology follow-up encounter Carotid artery disease Colorectal cancer CPAP (continuous positive airway pressure) dependence CVA (cerebral vascular accident) Depression Diabetic neuropathy Dietary restriction Dyslipidemia Dysphagia Essential hypertension Gastric reflux GERD (gastroesophageal reflux disease) High cholesterol History of echocardiogram History of heart attack History of pain when walking History of stress test HTN (hypertension) Injury of back Injury of head and neck 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 Leg cramps Loss of hearing Non-smoker Obstructive sleep apnea ALEJANDRO (obstructive sleep apnea) Peripheral vascular occlusive disease Restless legs Restrictive lung disease Shortness of breath on exertion Syncope Type 2 diabetes mellitus Walker as ambulation aid Wears glasses Home Medications aspirin 81 mg chewable tablet 81 mg PO DAILY heart health 03/20/16 [History Last Taken 03/10/23] duloxetine 60 mg capsule,delayed release 60 mg PO DAILY depression 03/20/16 [History Last Taken 03/10/23] omeprazole 40 mg capsule,delayed release 40 mg PO DAILY gerd 01/09/20 [History Last Taken 03/10/23] fluticasone propionate 50 mcg/actuation nasal spray,suspension (Flonase Allergy Relief) 1 spray intranasal DAILY PRN allergies 12/17/20 [History Last Taken 09/22/21] gabapentin 300 mg capsule 300 mg PO DAILY neuropathy 12/17/20 [History Last Taken 03/10/23] insulin detemir U-100 100 unit/mL (3 mL) subcutaneous pen 50 unit subcut BID blood sugar 12/17/20 [History Last Taken 03/10/23] insulin lispro 100 unit/mL subcutaneous pen (Humalog KwikPen (U-100) Insulin) See Rx Instructions subcut .COMPLEX diabetes 09/26/21 [History Last Taken 03/10/23] nitroglycerin 0.4 mg sublingual tablet 0.4 mg sublingual Q5M PRN chest pain #25 tabs 10/15/21 [Rx Last Taken Unknown] lisinopril 5 mg tablet 5 mg PO DAILY blood pressure #90 tabs 09/26/22 [Rx Last Taken 03/10/23] carvedilol 3.125 mg tablet 3.125 mg PO BID heart #180 tabs 10/03/22 [Rx Last Taken 03/10/23] clopidogrel 75 mg tablet 75 mg PO DAILY blood thinner #90 tabs 10/10/22 [Rx Last Taken 03/10/23] amlodipine 5 mg tablet (Norvasc) 5 mg PO DAILY blood pressure #90 tabs 12/28/22 [Rx Last Taken 03/10/23] rosuvastatin 20 mg tablet 20 mg PO QHS cholesterol #90 tabs 02/13/23 [Rx Last Taken 03/10/23] magnesium oxide 400 mg PO BID supplement 03/10/23 [History Last Taken 03/10/23] peg 400-propylene glycol (PF) 0.4 %-0.3 % eye drops in a dropperette (Lubricant Eye (PG-PEG 400) (PF)) 1 drp EACH EYE DAILY PRN dry eye(s) 03/10/23 [History Last Taken Unknown] Allergy/AdvReac Type Severity Reaction Status Date / Time No Known Allergies Allergy Verified 03/10/23 11:52 Family History Father CAD (coronary artery disease) Hypertension Cancer leukemia Diabetes Heart disease High cholesterol Mother CVA (cerebral vascular accident) Diabetes Breast cancer Brother Diabetes Surgical History Excision Max.Zygoma Face Tumor H/O coronary artery bypass surgery (05/30/08) History of bilateral cataract extraction History of coronary artery stent placement (01/02/15) History of eye surgery History of herniorrhaphy History of left heart catheterization (LHC) (~01/22/15) History of right and left heart catheterization (LHC) (~12/25/14) History of right-sided carotid endarterectomy History of tonsillectomy PTCA Left Anterior Tibial and Paroneal Artery Social History Smoking Status: Never smoker alcohol intake: never substance use type: does not use caffeine: Yes what type of physical activity do you participate in: none ROS ROS Narrative Constitutional: Denies acute fatigue and weakness. No fever. HEENT: No recent URI symptoms reports systems reviewed and no addt'l complaints, except as documented Respiratory/Chest: No acute shortness of breath or respiratory distress or wheezing. CVS: No chest pain pressure or tightness. Gastrointestinal: Denies coffee ground emesis, hematemesis or vomiting. Has colostomy Genitourinary: Denies burning urination or new urinary tract symptoms Musculoskeletal: Denies acute joint pain or limited range of motion. No acute injury Neurologic: Denies seizure-like symptoms. skin: No ulcer. No rash Endocrinology: Reports systems reviewed and no addt'l complaints, except as documented Hematologic/Lymphatic: Reports systems reviewed and no addt'l complaints, except as documented Rest 14 ROS are negative except as mentioned in HPI Vital Signs Vital Signs Vital Signs: 03/10/23 11:53 03/10/23 11:52 03/10/23 13:52 Temperature 98 F Temperature Source Temporal Pulse Rate 72 75 Pulse Rate [Lying] Pulse Rate [Sitting (for 1 minute prior to obtaining)] Pulse Rate [Standing (for 1 minute prior to obtaining)] Respiratory Rate 14 14 Respiratory Effort Normal Respiratory Pattern Normal Blood Pressure 127/63 H 137/66 H Blood Pressure [Lying] Blood Pressure [Sitting (for 1 minute prior to obtaining)] Blood Pressure [Standing (for 1 minute prior to obtaining)] Blood Pressure Mean 84 89 Blood Pressure Mean [Lying] Blood Pressure Mean [Sitting (for 1 minute prior to obtaining)] Blood Pressure Mean [Standing (for 1 minute prior to obtaining)] Pulse Ox 96 98 Oxygen Delivery Method Room Air Room Air 03/10/23 14:21 03/10/23 15:00 03/10/23 16:25 Temperature Temperature Source Pulse Rate 71 Pulse Rate [Lying] 75 72 Pulse Rate [Sitting (for 1 minute prior to obtaining)] 72 73 Pulse Rate [Standing (for 1 minute prior to obtaining)] 72 73 Respiratory Rate 15 Respiratory Effort Respiratory Pattern Blood Pressure 148/65 H Blood Pressure [Lying] 137/66 H 138/57 H Blood Pressure [Sitting (for 1 minute prior to obtaining)] 125/63 H 127/49 H Blood Pressure [Standing (for 1 minute prior to obtaining)] 88/49 L 95/52 L Blood Pressure Mean 92 Blood Pressure Mean [Lying] 89 84 Blood Pressure Mean [Sitting (for 1 minute prior to obtaining)] 83 75 Blood Pressure Mean [Standing (for 1 minute prior to obtaining)] 62 66 Pulse Ox 98 Oxygen Delivery Method Room Air 03/10/23 16:40 Temperature Temperature Source Pulse Rate 72 Pulse Rate [Lying] Pulse Rate [Sitting (for 1 minute prior to obtaining)] Pulse Rate [Standing (for 1 minute prior to obtaining)] Respiratory Rate 16 Respiratory Effort Respiratory Pattern Blood Pressure 141/56 H Blood Pressure [Lying] Blood Pressure [Sitting (for 1 minute prior to obtaining)] Blood Pressure [Standing (for 1 minute prior to obtaining)] Blood Pressure Mean 84 Blood Pressure Mean [Lying] Blood Pressure Mean [Sitting (for 1 minute prior to obtaining)] Blood Pressure Mean [Standing (for 1 minute prior to obtaining)] Pulse Ox 95 Oxygen Delivery Method Room Air Weight Weight: 156 lb 4.924 oz Body Mass Index (BMI) 24.5 Physical Exam Narrative General: Alert, Oriented x3, Cooperative HEENT: Atraumatic, PERRLA, EOMI, Normocephalic Oral: Oral mucosa dry. No Gingival or Mucosal Lesions/ Ulcerations Neck: Supple, No JVD, Negative Carotid Bruits Lungs: Air entry diminished in bilateral lung bases. No crepitation/rhonchi Cardiovascular: Regular rate, Regular Rhythm, Normal S1, Normal S2, No murmurs Abdomen: Bowel Sounds Present, Soft, Non Tender, Non-Distended. Left lower colostomy which is prolapsed and herniated but no active bleeding or ulcer : No renal angle tenderness. No suprapubic tenderness. Extremities: No edema, Capillary Refill Less than 3 Seconds Skin: No rashes, No breakdown Musculoskeletal: No Tenderness to Palpation of Joints or Extremities. ROM intact. Neurological: Cranial nerves II-XII grossly intact, DTR 2+/4. No acute focal neurological deficit. Psych/Mental Status: Flat affect. Results Lab / Micro Data 03/10/23 12:10 03/10/23 12:10 Labs: Laboratory Results - last 24 hr 03/10/23 12:10: WBC 8.1, RBC 4.64, Hgb 13.0, Hct 40.6, MCV 87.5, MCH 28.0, MCHC 32.0, RDW Std Deviation 45.3 H, RDW Coeff of Maia 14.2, Plt Count 295, MPV 9.4, Immature Gran % (Auto) 0.500, Neut % (Auto) 79.4 H, Lymph % (Auto) 10.6 L, [place] % (Auto) 8.5, Eos % (Auto) 0.5, Baso % (Auto) 0.5, Absolute Neuts (auto) 6.4, Absolute Lymphs (auto) 0.86, Nucleated RBC % 0, Sodium 139, Potassium 4.3, Chloride 104, Carbon Dioxide 31.0, Anion Gap 4 L, BUN 20 H, Creatinine 1.16, Estim Creat Clear Calc 59.36, Est GFR (MDRD) Af Amer 81, Est GFR (MDRD) Non-Af 67, BUN/Creatinine Ratio 17.2, Glucose 141 H, Calcium 8.8, Troponin I High Sens 12 03/10/23 14:22: Urine Color Yellow, Urine Clarity Clear, Urine pH 6.0, Ur Specific [place] 1.015, Urine Protein 15 H, Urine Glucose (UA) 50 H, Urine Ketones Negative, Urine Occult Blood Negative, Urine Nitrite Negative, Urine Bilirubin Negative, Urine Urobilinogen Normal, Ur Leukocyte Esterase Negative, Urine RBC 0 SEEN, Urine WBC 0 SEEN, Ur Squamous Epith Cells 0 SEEN, Urine Bacteria 0 SEEN, Urine Mucus 0 SEEN Radiology Impression Brain CT 03/10/23 12:11 IMPRESSION: Chronic involutional changes of the brain. Stable lacunar infarcts involving both basal ganglia. Electronically Signed: Navdeep Gonzales MD at 12:48 EDT , Chest X-Ray 03/10/23 12:31 IMPRESSION: Cardiomegaly, sternotomy wires, aortic tortuosity and mild hyperinflation. No active or acute cardiopulmonary disease. Electronically Signed: Jhon Siddiqui MD at 12:44 EDT , Assessment & Plan Assessment/Plan (1) Near syncope: (2) Orthostatic hypotension: PLAN: Plan This 67-year-old gentleman is being admitted for near syncope x2 today 1. Near syncope associated with orthostatic hypotension probably due to antihypertensive medications: Patient is being admitted in PCU. Patient on amlodipine 5 mg daily, carvedilol 3.125 mg twice daily, lisinopril 5 mg daily, gabapentin and duloxetine . All antihypertensive medications including decreased dose of gabapentin. Twelve-lead EKG and troponin normal. Patient denies history of fluid loss through colostomy or nausea or vomiting therefore I suspect mostly due to antihypertensive medications. 2. History of non-STEMI and coronary artery disease status post CABG and hypertension and dyslipidemia: Patient last clinic visit was in January 2023. Last echo in September 2021, reported EF 55%, stage II diastolic function, trivial TR, PASP 40 mmHg aortic sclerosis but no aortic stenosis or AI overall consistent with chronic HFpEF Fasting profile in October 2022, LDL 94, HDL 30 and TG 196. Patient was last admitted in September 2021 for altered mental status and acute NSTEMI. Last pharmacological nuclear stress in October 2021 reported normal. Patient does not have acute chest pain or pressure or shortness of breath. 3. Diabetes mellitus type 2: Glucose is controlled. 141 in BMP. Long-acting and short-acting insulin decreased with holding parameters. Accu-Cheks insulin coverage Humalog sliding scale. 4. DVT prophylaxis heparin 5000 subcutaneous every 8 hourly. Living will/advanced directive/end of life care: Patient does not have living will or advanced directive. He does not have major power of corporate attorney for health. His is next of kin. After discussion of benefits/risks procedures involved with full code, DNR CC arrest and DNR CC, the patient opted for full code. Patient does want artificial life support including intubation, tube feed, ventilator and/chest compression, central venous catheter, vasopressor and DC shock if needed Total time spent in [id number] encounter in discussion of advanced directive 17 minutes. Laboratory Results 03/10/23 12:10: WBC 8.1, RBC 4.64, Hgb 13.0, Hct 40.6, MCV 87.5, MCH 28.0, MCHC 32.0, RDW Std Deviation 45.3 H, RDW Coeff of Maia 14.2, Plt Count 295, MPV 9.4, Immature Gran % (Auto) 0.500, Neut % (Auto) 79.4 H, Lymph % (Auto) 10.6 L, [place] % (Auto) 8.5, Eos % (Auto) 0.5, Baso % (Auto) 0.5, Absolute Neuts (auto) 6.4, Absolute Lymphs (auto) 0.86, Nucleated RBC % 0, Sodium 139, Potassium 4.3, Chloride 104, Carbon Dioxide 31.0, Anion Gap 4 L, BUN 20 H, Creatinine 1.16, Estim Creat Clear Calc 59.36, Est GFR (MDRD) Af Amer 81, Est GFR (MDRD) Non-Af 67, BUN/Creatinine Ratio 17.2, Glucose 141 H, Calcium 8.8, Phosphorus Pending, Magnesium Pending, Troponin I High Sens 12 03/10/23 14:22: Urine Color Yellow, Urine Clarity Clear, Urine pH 6.0, Ur Specific [place] 1.015, Urine Protein 15 H, Urine Glucose (UA) 50 H, Urine Ketones Negative, Urine Occult Blood Negative, Urine Nitrite Negative, Urine Bilirubin Negative, Urine Urobilinogen Normal, Ur Leukocyte Esterase Negative, Urine RBC 0 SEEN, Urine WBC 0 SEEN, Ur Squamous Epith Cells 0 SEEN, Urine Bacteria 0 SEEN, Urine Mucus 0 SEEN Charges/Coding Visit Charges Inpatient E&M: 91605 Init Hosp L3 Procedures Hospitalists Procedures: 53940 Advncd Care Plan 30 Min
--- NOTE | 2023-03-10 16:45 | NURSING ---
DR GUPTA FOR DR CHAVIRA
--- NOTE | 2023-03-10 16:54 | NURSING ---
PCU OBS CANDY NEAR SYNCOPE, ORTHOSTATIC HYPOTENSION
[2023-03-10 17:28] LABS: Magnesium 1.8 mg/dL (1.6-2.6); Phosphorus 4.9 mg/dL (2.5-4.9)
[2023-03-10 18:44] LABS: Bedside Glucose 71 mg/dL (74-106)
[2023-03-10] MEDS: Lactated Ringers 1,000 ML 100 ML IV (18:56)
[2023-03-10] MEDS: Insulin Glargine-YFGN 100 UNIT/ML Pen 20 UNIT SC (21:48)
[2023-03-10] MEDS: Atorvastatin Calcium 40 MG Tablet PO (21:49)
[2023-03-10] MEDS: Heparin Injection (Vial) 5,000 UNIT/ML VIAL 5000 UNIT SC (21:49)
[2023-03-10] MEDS: Magnesium Chloride 64 MG Delay Rel.Tablet 128 MG PO (21:49)
[2023-03-10] MEDS: Insulin Lispro 100 UNIT/ML INSULN.PEN SC (21:49)
[2023-03-10 22:11] LABS: Bedside Glucose 187 mg/dL (74-106)
[2023-03-11 03:53] VITALS: BMI 24.0
[2023-03-11 05:52] LABS: Absolute Lymphocyte Count 1.01 X10^3/uL (0.83-4.51); Absolute Neutrophil Count 3.7 X10^3/uL (2.0-7.7); Basophil# 0.02 X10^3/uL; Basophil% 0.4 % (0-1); Eosinophil# 0.13 X10^3/uL; Eosinophils% 2.4 % (0-5); Hematocrit 39.2 % (40-54); Hemoglobin 12.6 g/dL (13.0-16.5); Lymphocyte # 1.01 X10^3/ul (0.83-4.51); Lymphocyte % 18.7 % (19-41); Mean Corp Hgb Conc 32.1 g/dL (32-36); Mean Corpuscular Hgb 28.3 pg (27.0-32.0); Mean Corpuscular Volume 87.9 fL (80-94); Mean Platelet Vol. 9.6 fl (6.2-12.0); Monocyte# 0.52 X10^3/uL; Monocyte% 9.6 % (0-10); NRBC Flagged by Analyzer 0 % (0-5); Neutrophil # 3.71 X10^3/uL (2.7-7.7); Neutrophil % 68.5 % (47-70); Platelet Count 253 K/mm3 (150-450); RBC Distribution Width CV 13.9 % (11.6-14.6); RBC Distribution Width SD 45.1 fl (35.1-43.9); Red Blood Count 4.46 M/mm3 (4.6-6.2); White Blood Count 5.4 K/mm3 (4.4-11.0)
[2023-03-11 06:19] LABS: Anion Gap 6 (5-15); BUN 9 mg/dL (7-18); BUN/Creat Ratio 12.4 RATIO (10-20); Calcium,Total 8.5 mg/dL (8.5-10.1); Chloride 103 mmol/L (98-107); Creatinine, Serum 0.73 mg/dL (0.70-1.30); EST Glomerular Filtration Rate 115 mL/min (>60); Est Glom Filt Rate - Afr Amer 139 mL/min (>60); Estimated Creatinine Clearance 94.32 ml/min; Glucose 203 mg/dL (74-106); Potassium 3.7 mmol/L (3.5-5.1); Sodium Level 139 mmol/L (136-145)
[2023-03-11 06:29] VITALS: BP 181/75; PULSE 85; RESP 18; TEMP 36.7; O2SAT 96
[2023-03-11] MEDS: Heparin Injection (Vial) 5,000 UNIT/ML VIAL 5000 UNIT SC ×3 (06:30→20:43)
[2023-03-11] MEDS: Acetaminophen 325 MG Tablet 650 MG PO (06:36)
[2023-03-11 08:00] LABS: Bedside Glucose 217 mg/dL (74-106)
[2023-03-11] MEDS: Insulin Lispro 100 UNIT/ML INSULN.PEN 8 UNIT SC ×3 (08:12→17:05)
[2023-03-11] MEDS: Insulin Glargine-YFGN 100 UNIT/ML Pen 20 UNIT SC ×2 (08:12→20:46)
[2023-03-11] MEDS: Insulin Lispro 100 UNIT/ML INSULN.PEN SC ×4 (08:13→20:46)
[2023-03-11] MEDS: Magnesium Chloride 64 MG Delay Rel.Tablet 128 MG PO ×2 (09:48→20:43)
[2023-03-11] MEDS: Gabapentin 100 MG Capsule PO (09:48)
[2023-03-11] MEDS: Ibuprofen 200 MG Tablet 400 MG PO (09:48)
[2023-03-11] MEDS: Aspirin 81 MG TAB.CHEW PO (09:48)
[2023-03-11] MEDS: Clopidogrel Bisulfate 75 MG Tablet PO (09:49)
[2023-03-11] MEDS: Pantoprazole Sodium 40 MG Tablet PO (09:49)
--- NOTE | 2023-03-11 10:41 | PN_ITS ---
Subjective Subjective Patient seen and examined. He had no active complaints and had an uneventful night. He denies any dizziness, lightheadedness, nausea, vomiting or any other symptoms. Review of systems is otherwise negative. Objective Data Objective Data Vital Signs: Vital Signs Temp Pulse Resp BP Pulse Ox O2 Del Method 98.1 F 85 18 181/75 H 96 Room Air 03/11/23 06:29 03/11/23 06:29 03/11/23 06:29 03/11/23 06:29 03/11/23 06:29 03/11/23 10:00 Oxygen Delivery Method Room Air Weight: 153 lb 7.068 oz Body Mass Index (BMI) 24.0 Intake & Output: Intake and Output for Last 24 Hours 03/09/23 03/10/23 03/11/23 23:59 23:59 23:59 Intake Total 2000 / 2000 1000 / 1000 Output Total 425 / 425 1200 / 1200 Balance 1575 / 1575 -200 / -200 Lab / Micro Data 03/11/23 04:45 03/11/23 04:45 Labs: Laboratory Results - last 24 hr 03/10/23 12:10: WBC 8.1, RBC 4.64, Hgb 13.0, Hct 40.6, MCV 87.5, MCH 28.0, MCHC 32.0, RDW Std Deviation 45.3 H, RDW Coeff of Maia 14.2, Plt Count 295, MPV 9.4, Immature Gran % (Auto) 0.500, Neut % (Auto) 79.4 H, Lymph % (Auto) 10.6 L, [place] % (Auto) 8.5, Eos % (Auto) 0.5, Baso % (Auto) 0.5, Absolute Neuts (auto) 6.4, Absolute Lymphs (auto) 0.86, Nucleated RBC % 0, Sodium 139, Potassium 4.3, Chloride 104, Carbon Dioxide 31.0, Anion Gap 4 L, BUN 20 H, Creatinine 1.16, Estim Creat Clear Calc 59.36, Est GFR (MDRD) Af Amer 81, Est GFR (MDRD) Non-Af 67, BUN/Creatinine Ratio 17.2, Glucose 141 H, Calcium 8.8, Phosphorus 4.9, Magnesium 1.8, Troponin I High Sens 12 03/10/23 14:22: Urine Color Yellow, Urine Clarity Clear, Urine pH 6.0, Ur Specific [place] 1.015, Urine Protein 15 H, Urine Glucose (UA) 50 H, Urine Ketones Negative, Urine Occult Blood Negative, Urine Nitrite Negative, Urine Bilirubin Negative, Urine Urobilinogen Normal, Ur Leukocyte Esterase Negative, Urine RBC 0 SEEN, Urine WBC 0 SEEN, Ur Squamous Epith Cells 0 SEEN, Urine Bacteria 0 SEEN, Urine Mucus 0 SEEN 03/10/23 18:25: POC Glucose 71 L 03/10/23 21:47: POC Glucose 187 H 03/11/23 04:45: WBC 5.4, RBC 4.46 L, Hgb 12.6 L, Hct 39.2 L, MCV 87.9, MCH 28.3, MCHC 32.1, RDW Std Deviation 45.1 H, RDW Coeff of Maia 13.9, Plt Count 253, MPV 9.6, Immature Gran % (Auto) 0.400, Neut % (Auto) 68.5, Lymph % (Auto) 18.7 L, [place] % (Auto) 9.6, Eos % (Auto) 2.4, Baso % (Auto) 0.4, Absolute Neuts (auto) 3.7, Absolute Lymphs (auto) 1.01, Nucleated RBC % 0, Sodium 139, Potassium 3.7, Chloride 103, Carbon Dioxide 30.0, Anion Gap 6, BUN 9, Creatinine 0.73, Estim Creat Clear Calc 94.32, Est GFR (MDRD) Af Amer 139, Est GFR (MDRD) Non-Af 115, BUN/Creatinine Ratio 12.4, Glucose 203 H, Calcium 8.5 03/11/23 06:27: POC Glucose 217 H Radiography Diagnostic Testing: Radiology Impression Brain CT 03/10/23 12:11 IMPRESSION: Chronic involutional changes of the brain. Stable lacunar infarcts involving both basal ganglia. Electronically Signed: Navdeep Gonzales MD at 12:48 EDT , Chest X-Ray 03/10/23 12:31 IMPRESSION: Cardiomegaly, sternotomy wires, aortic tortuosity and mild hyperinflation. No active or acute cardiopulmonary disease. Electronically Signed: Jhon Siddiqui MD at 12:44 EDT , Physical Exam Const alert and no apparent distress General Appearance: cooperative and well developed HEENT normocephalic, head/scalp atraumatic and oropharynx normal Eyes PERRL and EOMs intact bilaterally Neck no lymphadenopathy, supple and no JVD Lymph Lymphatic: no lymphadenopathy noted and no lymphedema noted Resp normal respiratory effort, normal air movement and clear to auscultation bilaterally Cardio regular rate, regular rhythm, S1 normal heart sound, S2 normal heart sound and no murmurs GI normal to inspection, nondistended, normoactive bowel sounds, soft to palpation, non-tender and non-distended Extremity normal capillary refill, no clubbing, cyanosis or edema and no calf tenderness General Extremity: no tenderness to palpation of joints or extremities Skin General Skin Exam: no breakdown and turgor normal Neuro CN's II-XII intact bilaterally, no focal motor deficits, no sensory deficits noted and deep tendon reflexes 2+ bilaterally Coordination / Balance: [id number] test normal Motor Exam: strength 5/5 throughout Psych thought process normal, cooperative and affect normal Appearance: appropriate Assessment & Plan Assessment/Plan (1) Near syncope: (2) Orthostatic hypotension: PLAN: Plan #near syncope due to orthostatic hypotension * has no complaints today and feels much better * orthostatics were significantly positive. BP meds on hold * being hydrated gently with IVF * PT/OT on board. Fall precautions. * CT of the brain showed no acute intracranial pathology. * * #HYpertension * Meds held on admission due to orthostatic hypotension. Blood pressure this morning is 181/75. * On amlodipine, carvedilol and lisinopril at home * will resume carvedilol and continue holding amlodipine and lisinopril for now. * #History of CAD s/p CABG * has known of EF of 55% with stage II diastolic dysfunction and aortic sclerosis but no stenosis. * on aspirin, plavix and high intensity statin as well as carvedilol * #TYpe 2 diabetes mellitus * glucose is controlled. * on lantus. ISS. Accuchecks ACHS * #DVT prophylaxis: heparin Charges/Coding Visit Charges Inpatient E&M: 75029 Subs Hosp L2
[2023-03-11 12:00] VITALS: BP 136/80; PULSE 89; RESP 16; TEMP 36.4; O2SAT 95
[2023-03-11] MEDS: Carvedilol 3.125 MG TABLET PO ×2 (12:06→20:43)
[2023-03-11 12:19] LABS: Bedside Glucose 235 mg/dL (74-106)
--- NOTE | 2023-03-11 15:05 | CASEMGMT ---
RASHI ARVIZU in to complete EDWARDS form with patient. RASHI ARVIZU explained EDWARDS Form to patient, patient voiced understanding. Patient signed EDWARDS form and filed in chart. Patient provided with copy of signed EDWARDS form. RASHI ARVIZU inquired about needs at discharge. Patient states he is back to his baseline and denies needs at this time. Patient had no further questions or concerns at this time.
[2023-03-11] MEDS: Lactated Ringers 1,000 ML 100 ML IV (15:17)
[2023-03-11 16:46] LABS: Bedside Glucose 208 mg/dL (74-106)
[2023-03-11 18:30] VITALS: BP 146/66; PULSE 75; RESP 14; TEMP 37.1; O2SAT 96
[2023-03-11] MEDS: Atorvastatin Calcium 40 MG Tablet PO (20:43)
[2023-03-11 20:50] VITALS: BP 194/77; PULSE 82; RESP 18; TEMP 36.5; O2SAT 95
[2023-03-11 22:26] LABS: Bedside Glucose 206 mg/dL (74-106)
[2023-03-11 23:58] VITALS: BP 162/72
[2023-03-12 02:50] VITALS: BP 150/73; PULSE 69; RESP 18; TEMP 36.2; O2SAT 95
[2023-03-12] MEDS: Heparin Injection (Vial) 5,000 UNIT/ML VIAL 5000 UNIT SC ×2 (05:28→14:38)
[2023-03-12 05:30] LABS: Absolute Lymphocyte Count 0.97 X10^3/uL (0.83-4.51); Absolute Neutrophil Count 2.7 X10^3/uL (2.0-7.7); Basophil# 0.01 X10^3/uL; Basophil% 0.2 % (0-1); Eosinophil# 0.09 X10^3/uL; Eosinophils% 2.1 % (0-5); Hematocrit 39.6 % (40-54); Hemoglobin 12.5 g/dL (13.0-16.5); Lymphocyte # 0.97 X10^3/ul (0.83-4.51); Lymphocyte % 22.8 % (19-41); Mean Corp Hgb Conc 31.6 g/dL (32-36); Mean Corpuscular Hgb 27.2 pg (27.0-32.0); Mean Corpuscular Volume 86.1 fL (80-94); Mean Platelet Vol. 9.4 fl (6.2-12.0); Monocyte# 0.52 X10^3/uL; Monocyte% 12.2 % (0-10); NRBC Flagged by Analyzer 0 % (0-5); Neutrophil # 2.66 X10^3/uL (2.7-7.7); Neutrophil % 62.5 % (47-70); Platelet Count 237 K/mm3 (150-450); RBC Distribution Width CV 14.1 % (11.6-14.6); RBC Distribution Width SD 43.8 fl (35.1-43.9); White Blood Count 4.3 K/mm3 (4.4-11.0)
[2023-03-12 06:00] VITALS: BMI 24.1
[2023-03-12 06:01] LABS: Anion Gap 5 (5-15); BUN 14 mg/dL (7-18); BUN/Creat Ratio 15.2 RATIO (10-20); Chloride 102 mmol/L (98-107); Creatinine, Serum 0.92 mg/dL (0.70-1.30); EST Glomerular Filtration Rate 88 mL/min (>60); Est Glom Filt Rate - Afr Amer 106 mL/min (>60); Estimated Creatinine Clearance 74.84 ml/min; Glucose 245 mg/dL (74-106); Sodium Level 137 mmol/L (136-145)
[2023-03-12 08:15] VITALS: BP 101/66; BP 140/73; BP 178/85; PULSE 68; PULSE 71
[2023-03-12 08:24] LABS: Bedside Glucose 246 mg/dL (74-106)
[2023-03-12 09:00] VITALS: BP 151/85; PULSE 73; RESP 16; TEMP 36.2; O2SAT 97
[2023-03-12] MEDS: Insulin Lispro 100 UNIT/ML INSULN.PEN 8 UNIT SC ×2 (09:04→11:53)
[2023-03-12] MEDS: Insulin Lispro 100 UNIT/ML INSULN.PEN SC ×2 (09:05→11:54)
[2023-03-12] MEDS: Insulin Glargine-YFGN 100 UNIT/ML Pen 20 UNIT SC (09:06)
[2023-03-12] MEDS: Carvedilol 3.125 MG TABLET PO (09:07)
[2023-03-12] MEDS: Magnesium Chloride 64 MG Delay Rel.Tablet 128 MG PO (09:07)
[2023-03-12] MEDS: Aspirin 81 MG TAB.CHEW PO (09:07)
[2023-03-12] MEDS: Clopidogrel Bisulfate 75 MG Tablet PO (09:08)
[2023-03-12] MEDS: Pantoprazole Sodium 40 MG Tablet PO (09:08)
[2023-03-12] MEDS: Gabapentin 100 MG Capsule PO (09:14)
[2023-03-12 11:47] LABS: Bedside Glucose 303 mg/dL (74-106)
--- NOTE | 2023-03-12 11:49 | DS.PCM_ITS ---
Providers Date of Admission: 03/10/23 Date of Discharge: 03/12/23 Primary Care Physician: Dr. Kendy Modi MD Reason For Visit: NEAR SYNCOPE Diagnosis Discharge Diagnosis (1) Near syncope: Status: Acute Code(s): R55 - Syncope and collapse (2) Orthostatic hypotension: Status: Acute Code(s): I95.1 - Orthostatic hypotension Plan #near syncope due to orthostatic hypotension * has no complaints today and feels much better * orthostatics were significantly positive. BP meds on hold * being hydrated gently with IVF * PT/OT on board. Fall precautions. * CT of the brain showed no acute intracranial pathology. * * #HYpertension * Meds held on admission due to orthostatic hypotension. Blood pressure this morning is 181/75. * On amlodipine, carvedilol and lisinopril at home * will resume carvedilol and continue holding amlodipine and lisinopril for now. * #History of CAD s/p CABG * has known of EF of 55% with stage II diastolic dysfunction and aortic sclerosis but no stenosis. * on aspirin, plavix and high intensity statin as well as carvedilol * #TYpe 2 diabetes mellitus * glucose is controlled. * on lantus. ISS. Accuchecks ACHS * #DVT prophylaxis: heparin Medications at Discharge Home Medications aspirin 81 mg chewable tablet 81 mg PO DAILY heart health 03/20/16 omeprazole 40 mg capsule,delayed release 40 mg PO DAILY gerd 01/09/20 fluticasone propionate 50 mcg/actuation nasal spray,suspension (Flonase Allergy Relief) 1 spray intranasal DAILY PRN allergies 12/17/20 gabapentin 300 mg capsule 300 mg PO DAILY neuropathy 12/17/20 insulin detemir U-100 100 unit/mL (3 mL) subcutaneous pen 50 unit subcut BID blood sugar 12/17/20 insulin lispro 100 unit/mL subcutaneous pen (Humalog KwikPen (U-100) Insulin) See Rx Instructions subcut .COMPLEX diabetes 09/26/21 nitroglycerin 0.4 mg sublingual tablet 0.4 mg sublingual Q5M PRN chest pain #25 tabs 10/15/21 carvedilol 3.125 mg tablet 3.125 mg PO BID heart #180 tabs 10/03/22 clopidogrel 75 mg tablet 75 mg PO DAILY blood thinner #90 tabs 10/10/22 rosuvastatin 20 mg tablet 20 mg PO QHS cholesterol #90 tabs 02/13/23 magnesium oxide 400 mg PO BID supplement 03/10/23 peg 400-propylene glycol (PF) 0.4 %-0.3 % eye drops in a dropperette (Lubricant Eye (PG-PEG 400) (PF)) 1 drp EACH EYE DAILY PRN dry eye(s) 03/10/23 duloxetine 60 mg capsule,delayed release 30 mg (1/2 x 60 mg) PO DAILY depression #30 caps 03/12/23 lisinopril 10 mg tablet 10 mg PO DAILY #30 tabs 03/12/23 Hospital Course Operations None Procedures None Summary of Care Provided Minutes Spent on Discharge: 50 Hospital Course: Patient is a 67-year-old male with a past medical history as outlined who came in through the ED on 03/10/2023 with a complaint of near syncope. He had gone to see his 1 dialysis for change of his stoma bag and dressing. He felt dizzy and lightheaded and had near syncope while today. He is of the same thing had happened on the morning of admission and fell and hit his head in the bathroom. He did not pass out that though. He was brought into the ED after he nearly passed out while seeing the wound nurse. Orthostatics were positive. Was also noted to be hypotensive with blood pressure going down to the 90s systolic EKG showed no acute ST changes. He was admitted and managed for near syncope due to orthostatic hypotension. His blood pressure medications were held and he was hydrated with IV fluids. He fe is orthostatics was also thought to be possibly due to diabetic neuropathy as well as patient being on duloxetine 60 mg daily.His BP meds were adjusted, and lisinopril increased to 10mg daily; carvedilol was maintained at 3.125mg bid and amlodipine was discontinued. His orthostatics did remain positive, though he became asymptomatic. He was counseled that he will need to be tapered off of duloxetine slowly on outpatient basis by his PCP if his orthostatics persistently remained positive, and his dose was halved to 30 mg daily. He is to follow up with his PCP within 1-2 weeks. Patient seen and examined prior to discharge. He felt much better and had no complaints and wanted to be discharged home. Review of systems otherwise negative. Labs and vitals reviewed. Home medication reviewed and reconciled. Physical Exam Const alert and no apparent distress General Appearance: cooperative, comfortable, well kempt and well developed Orientation / Consciousness: awake HEENT normocephalic, head/scalp atraumatic, hearing grossly normal bilaterally, moist oral mucous membranes and oropharynx normal Mouth: oral and palatal mucosa normal Eyes PERRL and EOMs intact bilaterally Neck no lymphadenopathy, supple and no JVD Lymph Lymphatic: no lymphadenopathy noted and no lymphedema noted Resp normal respiratory effort, normal air movement, no retractions, no use of accessory muscles and clear to auscultation bilaterally Cardio regular rate, regular rhythm, S1 normal heart sound, S2 normal heart sound and no murmurs GI normal to inspection, nondistended, normoactive bowel sounds, soft to palpation, non-tender and non-distended Extremity normal to inspection, full ROM, normal capillary refill, no clubbing, cyanosis or edema and no calf tenderness General Extremity: no tenderness to palpation of joints or extremities Skin no rashes or lesions noted General Skin Exam: no breakdown and turgor normal Neuro oriented x3, CN's II-XII intact bilaterally, moves all extremities, no focal motor deficits, no sensory deficits noted and deep tendon reflexes 2+ bilaterally Sensorium / Orientation: awake and alert Coordination / Balance: [id number] test normal Motor Exam: strength 5/5 throughout Psych thought process normal, cooperative and affect normal Appearance: appropriate Weight / BMI Weight Weight: 154 lb 1.65 oz Body Mass Index (BMI) 24.1 ABG / Lab / Microbiology Data 03/12/23 04:41 03/12/23 04:41 Laboratory: Laboratory Results - last 24 hr 03/11/23 11:50: POC Glucose 235 H 03/11/23 16:27: POC Glucose 208 H 03/11/23 20:45: POC Glucose 206 H 03/12/23 04:41: WBC 4.3 L, RBC 4.60, Hgb 12.5 L, Hct 39.6 L, MCV 86.1, MCH 27.2, MCHC 31.6 L, RDW Std Deviation 43.8, RDW Coeff of Maia 14.1, Plt Count 237, MPV 9.4, Immature Gran % (Auto) 0.200, Neut % (Auto) 62.5, Lymph % (Auto) 22.8, Callahan % (Auto) 12.2 H, Eos % (Auto) 2.1, Baso % (Auto) 0.2, Absolute Neuts (auto) 2.7, Absolute Lymphs (auto) 0.97, Nucleated RBC % 0, Sodium 137, Potassium 4.0, Chloride 102, Carbon Dioxide 30.0, Anion Gap 5, BUN 14, Creatinine 0.92, Estim Creat Clear Calc 74.84, Est GFR (MDRD) Af Amer 106, Est GFR (MDRD) Non-Af 88, BUN/Creatinine Ratio 15.2, Glucose 245 H, Calcium 9.0 03/12/23 08:06: POC Glucose 246 H 03/12/23 11:20: POC Glucose 303 H D/C Instructions Discharge Diet: Low fat / Low cholesterol Discharge Activity: Return to Normal Activity Weight Bearing Status: Weight bearing as tolerated Call your doctor if you observe: Fever of 101 or Higher, Shortness of breath, Dizziness, Swelling in the ankles, Chest pain and Increased palpitations (irregular heartbeat) Meaningful Use Info Meaningful Use Diagnoses (Choose all that apply): None applicable Discharge Plan Admission Admit Date/Time: 03/10/23 16:44 Primary Reason for Your Visit: orthostatic hypotension Attending Provider: Catherine Barton Primary Care Provider: Kendy Modi Consulting Providers: Matt Penny Instructions Patient Instructions: Orthostatic Hypotension, ED Hypotension, Orthostatic Additional Instructions / Restrictions: duloxetine needs to be tapered down due to its side effect of orthostatic hypotension. Dose cut down to 30mg daily. Discharge Orders/Prescriptions Prescriptions: New lisinopril 10 mg tablet 10 mg PO DAILY Qty: 30 2RF Continued gabapentin 300 mg capsule 300 mg PO DAILY fluticasone propionate [Flonase Allergy Relief] 50 mcg/actuation s pray,suspension 1 spray intranasal DAILY PRN (Reason: allergies) Rx Instructions: administer into each nostril nitroglycerin 0.4 mg tablet, sublingual 0.4 mg sublingual Q5M PRN (Reason: chest pain) Qty: 25 3RF Rx Instructions: do not exceed 3 doses per episode aspirin 81 MG tablet,chewable 81 mg PO DAILY Patient Comments: Splice insulin detemir U-100 100 unit/mL (3 mL) insulin pen 50 unit SC BID omeprazole 40 MG capsule,delayed release(DR/EC) 40 mg PO DAILY insulin lispro [Humalog KwikPen Insulin] 100 unit/mL insulin pen See Rx Instructions SC .COMPLEX Rx Instructions: Take 17 units each meal plus sliding scale up to 65 units daily magnesium oxide 400 mg magnesium tablet 400 mg PO BID Lubricant Eye (PG-PEG 400)(PF) 0.4-0.3 % dropperette 1 drp EACH EYE DAILY PRN (Reason: dry eye(s)) carvedilol 3.125 mg tablet 3.125 mg PO BID Qty: 180 3RF clopidogrel 75 mg tablet 75 mg PO DAILY Qty: 90 3RF rosuvastatin 20 mg tablet 20 mg PO QHS Qty: 90 3RF Changed duloxetine 60 MG capsule,delayed release(DR/EC) 30 mg PO DAILY Qty: 30 1RF Patient Comments: antidepressant Discontinued lisinopril 5 mg tablet 5 mg PO DAILY Qty: 90 3RF amlodipine [Norvasc] 5 mg tablet 5 mg PO DAILY Qty: 90 3RF Referrals / Follow Up: Kendy Modi MD [Primary Care Provider] - Within 1 Week Disposition Disposition (needs filled in before D/C Order can be placed): Home, Self Care Charges/Coding Visit Charges Inpatient E&M: 38704 Disch Hosp >30min
[2023-03-12 12:30] LABS: Hemoglobin A1c 8.4 % (3.8-5.6)
[2023-03-12 14:11] VITALS: BP 122/73; BP 150/73; BP 175/76; PULSE 175; PULSE 74; PULSE 77
[2023-03-12 15:00] VITALS: BP 122/73; PULSE 73; RESP 16; TEMP 36.4; O2SAT 98
== END 2023-03-12 11:31 | disposition home or self-care (01) ==
LOC: ED 16:41 → PCU 17:03
PROVIDERS: Admitting Provider Internal Medicine; Emergency Provider Emergency Medicine; PCP Family Medicine; Visit Provider Student in an Organized Health Care Education/Training Program
DX: I95.1 Orthostatic hypotension (principal); Z93.3 Colostomy status; E11.40 Type 2 diabetes mellitus with diabetic neuropathy, unspecified; Z79.4 Long term (current) use of insulin; S09.90XA Unspecified injury of head, initial encounter; I10 Essential (primary) hypertension; Z79.02 Long term (current) use of 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/antiplatelets; Z79.82 Long term (current) use of aspirin; Z79.899 Other long term (current) drug therapy; E78.00 Pure hypercholesterolemia, unspecified; K21.9 Gastro-esophageal reflux disease without esophagitis; I25.2 Old myocardial infarction; G47.33 Obstructive sleep apnea (adult) (pediatric); I25.10 Atherosclerotic heart disease of native coronary artery without angina pectoris; Z95.1 Presence of aortocoronary bypass graft; W19.XXXA Unspecified fall, initial encounter
CPT/HCPCS: 36415; 70450; 71045; 80048; 81001; 82962; 83036; 83735; 84100; 84484; 85025; 93005; 94668; 96360; 96361; 96372; 97110; 97162; 97166; 97530; 99221; 99285; J7030; J7040; J7120; A4216; G0378

== ENCOUNTER → 2023-10-16 | Outpatient (CLI) | payer BC, MEDICARE, OTHER, SELFPAY ==
[2023-10-16 17:50] LABS: Protein, Urine (Random) 43.3 mg/dL (<11.9); Protein:Creat Ratio 148 mg/g CRE (0-200)
[2023-10-16 18:21] LABS: Cholesterol 132 mg/dL (200); High Density Lipoprotein 29 mg/dL; PSA,Total - Annual Screen 1.29 ng/mL (0.00-4.00); Triglycerides 187 mg/dL; Very Low Density Lipoprotein 37 mg/dL (5-40)
--- OUTSIDE RECORDS SUMMARY | 2023-10-16 20:38 | XMS RPT_ITS | CCD ---
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 plans for possible stoma revision after meeting with stoma therapy team. No family history No tobacco/illicits, +occasional wine ASA/blood thinner: Plavix Cancer surveillance: locally LAST VISIT: 05/24/23 06/15/23CT A/P: No intra-abdominal or pelvic recurrence or metastasis. Pelvis: No mass, ascites or fluid collection. Findings compatible with left mesh plug hernia repair. 06/15/23CT Chest: No CT evidence of acute abnormality. No suspicious pulmonary nodules. No thoracic lymphadenopathy. 07/19/23: Good PO intake, good output from stoma. Can reduce his prolapsed stoma while laying flat, when he stands it immediately prolapses. Has mild discomfort when bending. Has leaks from the appliance a few times a week, can sometimes get 4 days without having to change the appliance. Had difficulties using an ostomy belt in the past. O: Physical Exam: Vitals: 07/19/23 1134 Weight: 67.1 kg (148 lb) Height: 1.702 m (5' 7 ) Body mass index is 23.18 kg/m . General: No acute distress. Alert and oriented x 3. Cardiac: Regular rate and rhythm. Pulmonary: Equal chest rise, unlabored breathing. Abdomen: Soft, nontender, nondistended. Prolapsed LLQ colostomy with parastomal hernia, stool in appliance Anorectal: deferred Extremities: No edema. Warm and well-perfused. Normal gait. MSK: No gross deformities. Neurologic: No focal deficits. EUSEBIO Mujica Department of Surgery Division of Colorectal Surgery Patient's surgery warrants CERAS bowel prep. CERAS prescriptions were sent to the patient's pharmacy and the patient was provided with Ensure Pre Surgery drinks x 2 in clinic. The CERAS bowel prep instructions were reviewed along with information pertaining to all aspects of preparing for surgery, what will happen the day of surgery and post op recovery. The patient voiced understanding and all questions were answered to the patient's satisfaction. documented in this encounter [facility] 07-19-2023 Instructions Bandar George RN - 07/19/2023 11:30 AM EST Pre-Operative Bowel Preparation [facility] 2016 A bowel prep is done to prepare the bowel for surgery or a procedure. Its purpose is to clear out the bowel of all solid matter. Please follow these instructions. Begin the bowel prep on the day before your scheduled surgery. You will need these items from a pharmacy: Dulcolax 20mg (available over the counter) Miralax 238g (available over the counter) Metronidazole or Erythromycin (if Metronidazole allergic) Neomycin Chlorhexidine (CHG) Liquid Wash On the day before your surgery: Drink only clear liquids. You should not have any solid food or milk products until after your surgery. Do not drink any liquids that are red, orange or purple in color. You may drink as much of these liquids as you like. In fact, the more you drink, the better your prep and the better your body will tolerate the prep. Also, continue drinking clear liquids after you finish the prep (until midnight) will make it easier to place your IV on the morning of surgery. These clear liquids are allowed: Water Strained fruit juices with no pulp Popsicles Ice Soft drinks Gatorade ([place] preferred) Clear broth or bouillon Jello Coffee or tea with no milk or cream Krunal-aid (No red, orange or purple) Begin the bowel prep. Plan ahead so you will have a bathroom nearby. You may need to get to the toilet right away. You will have several bowel movements through the day. They will become very watery. The bowels are clear or clean when there is only pale yellow fluid without flecks of stool. Please follow the steps as directed starting at 11AM on the day before your surgery. The steps will clean your bowel for surgery and help protect against infection. You may only consume CLEAR LIQUIDS twenty-four (24) hours prior to surgery. STEP 1 - 11AM: Take 4 X 5MG Bisacodyl (Ducolax) tablets STEP 2 - 11AM: Pour the entire bottle of Polyethylene Glycol (Miralax) powder into a large 64-ounce bottle of sports drink like Gatorade or PowerAid that is not red, orange, or purple in color. [place] is preferred. You may need to pour out a cup of the drink from the bottle into a glass to make room before pouring the powder into the bottle. Shake well. Drink entire contents (60 oz.) over 2 hours. STEP 3 - 1PM: Take entire contents by mouth - 2 x 500mg metronidazole (Flagyl) tablets and 2 x 500mg neomycin tablets STEP 4 - 2PM: Take entire contents by mouth - 2 x 500mg metronidazole (Flagyl) tablets and 2 x 500mg neomycin tablets STEP 5 - 9PM: Take entire contents by mouth - 2 x 500mg metronidazole (Flagyl) tablets and 2 x 500mg neomycin tablets STEP 6 - Before Bedtime: Take a shower and wash your hair and body as usual. Turn off shower and use 1 entire bottle of the CHG Wash to wash your body from the neck down. Pay special attention to the area where the surgery will be. Leave the wash on for 5 minutes then rinse well in the shower and put on clean clothes. STEP 7 - Before Bedtime: Drink 1 bottle of Ensure Pre-Surgery Clear Nutritional drink. STEP 8 - Morning of Surgery: Repeat STEP 6 and wash with 2nd entire bottle of CHG Wash. STEP 9 - Morning of Surgery: Drink the second bottle of Ensure Pre-Surgery Clear Nutritional drink on the way to the hospital prior to your procedure. STEP 10 - Please bring this form with you the day of your procedure. The morning of your surgery: Do not eat or drink anything other than the Preoperative Nutrition drink supplied by your doctor or doctor s office. If you are to take your morning medicines, take with small sips of water only. Bring all medicines you usually take (in the original containers) to the hospital with you. Follow any other instructions you were given to prepare for your surgery. If you have any questions, call your surgeon s office. documented in this encounter [facility] 07-03-2023 Miscellaneous Notes Please send short Rx to local pharmacy. Jazmine Pang LPN documented in this encounter [facility] 06-26-2023 Miscellaneous Notes This was discontinued 06/21/2023 by Everardo. Jazmine Pang LPN documented in this encounter [facility] 06-21-2023 Note HNO ID: [id number] Author: Everardo Yusuf APRN.OILER HELPER Service: ? Author Type: Nurse Practitioner Type: Progress Notes Filed: 06/22/2023 10:23 AM Note Text: Chief Complaint Patient presents with: Established Patient HPI: Isaias Haji is a 67 year old male who presents here today for follow up rectal cancer. Per Dr. 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 Biomarkers: Mismatch repair ICH: MLH-1 (M1) positive MSH2 (25D12) positive MSH6 (44) positive PMS2 ([id number]) positive Result of Microsatellite Instability Study -Negative (no loss of mismatch protein; no microsatellite instability detected). Baseline CEA: 24.8 on 05/15/[address] Leonardo's previous note: H/o CAD (status post CABG ?5 vessels in 2007), CVA (2008, 2011 and 2014; residual numbness and weakness on the left side; cannot discriminate temperature on that side), DM2 h/o of R CEA and b/l leg angioplasty. Presented to [facility] on 05/02/2019 with an episode of syncope. He was orthostatic on presentation and had a hemoglobin of 10 g/dL. He had endorsed intermittent GI bleeding over the previous year. He was admitted and Plavix was held as well as aspirin initially. Patient underwent colonoscopy on 05/05/2019. He was observed to have a rectal mass about half centimeter from the anal verge. There were 25-6 mm polyps in the descending colon and one less than 5 mm polyp in the sigmoid colon. There was a 6-9 mm polyp in the cecum. The malignant partially obstructing tumor in the rectum was biopsied. Pathology: A. Cecal mass, biopsy: Tubulovillous adenoma. Negative for malignancy. See comment. B. Descending colon polyp, biopsy: Fragments of tubular adenoma. Fragments of fecal material. C. Descending colon polyp #2, biopsy: Fragments of tubular adenoma. Fragments of fecal material. D. Sigmoid colon polyp, biopsy: Fragments of tubular adenoma. E. Rectal mass, biopsy: Invasive mucinous adenocarcinoma. See comment. Hemoglobin had declined 8.3 g/dL and he received a 2 unit red blood cell transfusion. [facility] and underwent evaluation by Dr. Garcia on 05/15/2019. Flexible sigmoidoscopy revealed a large fungating mass on the posterior aspect of the rectum extending along the left side to the anterior margin. It was fixated and extending into the sphincter past the dentate line. MRI rectum 05/15/2019: RESULT: TUMOR LOCATION: Location: Lower third rectum Distance to top of internal anal sphincter: Abuts and involves the internal anal sphincter Distance to anal verge: 3.1 cm Relationship to peritoneal reflection: below TUMOR CHARACTERISTICS: Type: ulcerated Tumor Length: 5.1 Circumferential extent: 50%-75% superiorly to near circumferential involvement inferiorly. Wall invasion: Present CIRCUMFERENTIAL RESECTION MARGIN: Applicable: no EXTRAMURAL VASCULAR INVASION: None OTHER STRUCTURES/ ORGANS INVOLVED: none LYMPH NODES: Mesorectal lymph nodes: Likely Malignant: * 0.8 x 0.6 cm RIGHT mesorectal lymph node (16:51) * 0.5 x 0.4 cm LEFT mesorectal lymph node (16:41), indeterminate Extra mesorectal lymph nodes: * 0.9 x 0.8 cm LEFT internal iliac lymph node (16:31) * 1.0 x 0.9 cm RIGHT external iliac chain lymph node (14:34) 5 CM T3 N1 LOW RECTAL TUMOR WITH WITH INVOLVEMENT OF THE INTERNAL ANAL SPHINCTER. SUSPICIOUS APPEARING MESORECTAL AND BILATERAL EXTRA MESORECTAL LYMPH NODES DESCRIBED. cT3 cN1 CT chest 05/15/2019: 1. Tiny 2 mm indeterminate nodule within the right lung. No additional pulmonary nodules identified. Follow-up CT per clinical protocol suggested to ensure stability in this patient with known malignancy. 2. No thoracic lymphadenopathy. 3. Small hiatal hernia. He has chronic right-sided sciatica-type pain. Pain starts lateral and inferior to the right SI joint and radiates into the thigh. This been present several years. He has paresis of the left arm. 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 Left leg strength normal. Previous therapy: 1) Concurrent chemotherapy with long course radiation in the neoadjuvant setting. Underwent a repeat evaluation main campus. MRI Rectum 09/18/2019: INTERVAL DECREASE IN SIZE OF MUCINOUS LOW RECTAL TUMOR WITH PERSISTENT INVOLVEMENT OF THE INTERNAL ANAL SPHINCTER. MESORECTAL AND BILATERAL INTERNAL ILIAC ADENOPATHY. mrTRG: Grade 3 - Moderate response Post Treatment mr: T3 N1 Tumor board discussion and recommendation: Neoadjuvant therapy recommended: Yes Total Neoadjuvant Therapy: Long-course chemoradiation (5 weeks) followed by consolidation chemotherapy (4 months) if responsive to chemoradiotherapy. After completion of ELMA, assessment for complete clinical response and discussion regarding active surveillance versus surgery.. Anticipated (more content not included)... [facility] 06-21-2023 Note HNO ID: [id number] Author: Qiana Harris RN Service: ? Author Type: Registered Nurse Type: Progress Notes Filed: 06/22/2023 10:23 AM Note Text: Isaias Haji is here for an appointment today with Everardo Yusuf APRN.CNP and experienced a fall during his clinical visit. The patient had witnessed fall. Location of fall: [facility] Brief Factual Description: Patient fell landing on left knee and then laid on the floor. Contributing Factors: lost balance Did patient hit head or neck? No Is the patient having any pain? Yes: Location Left knee Pain Scale: 2 on a scale from 0-10 Pain Character: sharp Is patient alert? YES Injury: Abrasion to left knee INTERVENTIONS: Immediate Actions Taken: Provider notified and will continue with office visit Vitals completed Name of LIP Notified: Everardo Yusuf APRN.CNP Additional Prevention Measures:placed Falling Man sign on door, instructed Patient to remain seated, escorted to/from bathroom, increased observations by caregiver, and door to room left opened [facility] 06-21-2023 History of Presen t illness Narrative Chief Complaint Patient presents with: Established Patient HPI: Isaias Haji is a 67 year old male who presents here today for follow up rectal cancer. Per Dr. 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 Biomarkers: Mismatch repair ICH: MLH-1 (M1) positive MSH2 (25D12) positive MSH6 (44) positive PMS2 ([id number]) positive Result of Microsatellite Instability Study -Negative (no loss of mismatch protein; no microsatellite instability detected). Baseline CEA: 24.8 on 05/15/[address] Leonardo's previous note: H/o CAD (status post CABG 5 vessels in 2007), CVA (2008, 2011 and 2014; residual numbness and weakness on the left side; cannot discriminate temperature on that side), DM2 h/o of R CEA and b/l leg angioplasty. Presented to [facility] on 05/02/2019 with an episode of syncope. He was orthostatic on presentation and had a hemoglobin of 10 g/dL. He had endorsed intermittent GI bleeding over the previous year. He was admitted and Plavix was held as well as aspirin initially. Patient underwent colonoscopy on 05/05/2019. He was observed to have a rectal mass about half centimeter from the anal verge. There were 25-6 mm polyps in the descending colon and one less than 5 mm polyp in the sigmoid colon. There was a 6-9 mm polyp in the cecum. The malignant partially obstructing tumor in the rectum was biopsied. Pathology: A. Cecal mass, biopsy: Tubulovillous adenoma. Negative for malignancy. See comment. B. Descending colon polyp, biopsy: Fragments of tubular adenoma. Fragments of fecal material. C. Descending colon polyp #2, biopsy: Fragments of tubular adenoma. Fragments of fecal material. D. Sigmoid colon polyp, biopsy: Fragments of tubular adenoma. E. Rectal mass, biopsy: Invasive mucinous adenocarcinoma. See comment. Hemoglobin had declined 8.3 g/dL and he received a 2 unit red blood cell transfusion. [facility] and underwent evaluation by Dr. Garcia on 05/15/2019. Flexible sigmoidoscopy revealed a large fungating mass on the posterior aspect of the rectum extending along the left side to the anterior margin. It was fixated and extending into the sphincter past the dentate line. MRI rectum 05/15/2019: RESULT: TUMOR LOCATION: Location: Lower third rectum Distance to top of internal anal sphincter: Abuts and involves the internal anal sphincter Distance to anal verge: 3.1 cm Relationship to peritoneal reflection: below TUMOR CHARACTERISTICS: Type: ulcerated Tumor Length: 5.1 Circumferential extent: 50%-75% superiorly to near circumferential involvement inferiorly. Wall invasion: Present CIRCUMFERENTIAL RESECTION MARGIN: Applicable: no EXTRAMURAL VASCULAR INVASION: None OTHER STRUCTURES/ ORGANS INVOLVED: none LYMPH NODES: Mesorectal lymph nodes: Likely Malignant: * 0.8 x 0.6 cm RIGHT mesorectal lymph node (16:51) * 0.5 x 0.4 cm LEFT mesorectal lymph node (16:41), indeterminate Extra mesorectal lymph nodes: * 0.9 x 0.8 cm LEFT internal iliac lymph node (16:31) * 1.0 x 0.9 cm RIGHT external iliac chain lymph node (14:34) 5 CM T3 N1 LOW RECTAL TUMOR WITH WITH INVOLVEMENT OF THE INTERNAL ANAL SPHINCTER. SUSPICIOUS APPEARING MESORECTAL AND BILATERAL EXTRA MESORECTAL LYMPH NODES DESCRIBED. cT3 cN[address] CT chest 05/15/2019: 1. Tiny 2 mm indeterminate nodule within the right lung. No additional pulmonary nodules identified. Follow-up CT per clinical protocol suggested to ensure stability in this patient with known malignancy. 2. No thoracic lymphadenopathy. 3. Small hiatal hernia. He has chronic right-sided sciatica-type pain. Pain starts lateral and inferior to the right SI joint and radiates into the thigh. This been present several years. He has paresis of the left arm. 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 Left leg strength normal. Previous therapy: 1) Concurrent chemotherapy with long course radiation in the neoadjuvant setting. Underwent a repeat evaluation main campus. MRI Rectum 09/18/2019: INTERVAL DECREASE IN SIZE OF MUCINOUS LOW RECTAL TUMOR WITH PERSISTENT INVOLVEMENT OF THE INTERNAL ANAL SPHINCTER. MESORECTAL AND BILATERAL INTERNAL ILIAC ADENOPATHY. mrTRG: Grade 3 - Moderate response Post Treatment mr: T3 N1 Tumor board discussion and recommendation: Neoadjuvant therapy recommended: Yes Total Neoadjuvant Therapy: Long-course chemoradiation (5 weeks) followed by consolidation chemotherapy (4 months) if responsive to chemoradiotherapy. After completion of ELMA, assessment for complete clinical response and discussion regarding active surveillance versus surgery.. Anticipated surgical treatment: possible robotic APR with possible LPLND. Previoius therapy: 1) FOLFOX. He received cycle #1 on 10/21/2019. He had insomnia the first night and felt some generalized fatigue but he had no flare of his chronic neuropathy/sciatic pain (per previous note: baseline neuropathy pain in the fingertips and toes with the left fingertips affected more than the right. His ambulation around the house is limited by his sciatica and his peripheral vascular disease. He prefers to use of a wheelchair when going to medical appointments). [place] well the remainder of that week but then Presented to the ED with a fever of 100.5 along with nausea and vomiting 10/29/2019. ANC was 7000 on admission (2500 the day of discharge 10/31). He also noticed less urine output over the preceding week. He was found to be septic. Cultures eventually grew Klebsiella and urine and blood. He required initial management in the ICU initially but did not require pressor support. He also had evidence of prerenal azotemia. Patient had a CT of the abdomen and pelvis to rule out abscess-- CT A/P 10/31/2019: FINDINGS: There is prominent interstitial thickening or subsegmental atelectasis in both lower lobes. The heart is enlarged. There is a small hiatal hernia. Liver is enlarged and fatty infiltrated. There is a small hemangioma in the right lobe. Bile ducts are not dilated.. Normal gallbladder and extrahepatic biliary system. Normal spleen. Normal pancreas. Normal bilateral adrenal glands. Normal right kidney. Normal left kidney. Normal visualized stomach. Mild nonspecific ileus with diffuse fecal retention throughout the colon. The appendix is visualized and appears normal. Atherosclerotic changes of the aorta without evidence for aneurysm. Normal inferior vena cava. Normal retroperitoneum. Incompletely distended thick-walled bladder likely of no significance Mild nonspecific prominence of the prostate Small fat-containing right inguinal hernia.. Normal osseous structures. IMPRESSION: Mild nonspecific ileus with diffuse retention in the colon.. Enlarged fatty infiltrated liver with small hemangioma in the right lobe. Improved rather quickly and was able to be discharged on 10/31 with instructions to continue a one week course of Duricef. Serum creatinine normalized to 1.03 mg/dL time of discharge. Completed chemotherapy February 2020. 03/11/20 MRI rectum IMPRESSION: Low rectal mucinous tumor without residual viable soft tissue component, but with residual mucinous change. Persistently enlarged bilateral internal iliac lymph nodes, one of which is mucinous. mrTRG: Grade 2 - Good response 03/25/2020 TB Recs Discussion: Good response to treatment however still residual radiological disease especially on the right site. Persistent Right lateral pelvic LN. Robotic APR with RPLND (Right pelvic LN dissection) Patient underwent robotic abdominal perineal resection with right lateral pelvic lymph node dissection and creation of an end colostomy and primary closure of the perineal defect on 05/26/2020. Pathology: FINAL DIAGNOSIS 1. Sigmoid colon, rectum and anus, abdominoperineal resection (A)- Rare residual adenocarcinoma cells present in mucin pools with associated fibrosis, chronic inflammation and calcifications, consistent with treatment effect. See synoptic and comment. - Two tumor deposits. - Metastatic adenocarcinoma involving one lymph node (08/13). - Negative surgical margins. - No evidence of lymphovascular or perineural invasion. 2. Right lateral pelvic lymph nodes, excision (B) - Metastatic adenocarcinoma involving one lymph node (08/13). DSA 06/02/2020 COMMENT 1. CAM 5.2 stain was performed on blocks A5, A8, A11, A12 and A 28 to exclude residual tumor. Rare adenocarcinoma cells are noted on CAM 5.2 stain on slides A5, A11 and A28, supportive of the diagnosis. CAM 5.2 was negative for residual carcinoma cells on slides A8 and A12. Rare tumor cells from the rectal tumor are noted in mucin pools within perirectal adipose tissue and are 0.5 cm from the radial margin (measured on the glass slide). Seven lymph nodes were identified in the perirectal/pericolonic adipose tissue after thorough examination of the fat and a total of 25 cassettes submitted for histologic analysis. Another seven lymph nodes were submitted as part B. All lymph nodes included in the case (total of 14 lymph nodes) correspond to regional lymph nodes and are summarized in the synoptic report. Laboratory Developed Test (LDT) Disclaimer: Positive and negative controls stain appropriately. Performance characteristics of immunohistochemical, immunofluorescent and chromogenic in-situ hybridization tests have been determined by [facility]'s [facility] [place] ([facility]) in a manner consistent with CLIA requirements. One or more of these tests have not been cleared or approved by the FDA. [facility] is regulated under CLIA as qualified to perform high-complexity testing. These tests are used for clinical purposes. They should not be regarded as investigational or for research. SYNOPTIC REPORT OF [facility] PATHOLOGIC FINDINGS SIGMOID, RECTUM AND ANUS: COLON AND RECTUM:RESECTION, INCLUDING TRANSANAL DISK EXCISION OF RECTAL NEOPLASMS WORKSHEET: Procedure: Abdominoperineal resection Tumor Site: Rectum Tumor location: Entirely below the anterior peritoneal reflection Tumor Size: Greatest dimension: 0.8 cm Macroscopic Tumor Perforation: Not identified Macroscopic Intactness of Mesorectum: Complete Histologic Type: Adenocarcinoma Histologic Grade: Not applicable Tumor Extension: Tumor invades through the muscularis propria into pericolorectal tissue Margins: All margins are uninvolved by invasive carcinoma, high-grade dysplasia, intramucosal adenocarcinoma, and adenoma Margins examined: proximal, distal, radial Distance of tumor from radial margin (required only for rectal tumors): 0.5 cm Distance of tumor from distal margin (recommended for rectal tumors): 4.5 cm Proximal Margin: Uninvolved by invasive carcinoma Distal Margin: Uninvolved by invasive carcinoma Circumferential Radial Margin: Uninvolved by invasive carcinoma Mesenteric Margin: Not applicable: . Treatment Effect: Present-Single cells or rare small groups of cancer cells (near complete response, score 1) Lymphovascular Invasion: Not identified Perineural Invasion: Not identified Tumor Deposits: Present Specify number of deposits: 2 Regional Lymph Nodes: Number of nodes involved: 2 Number of nodes examined: 14 Pathologic Stage Classification (pTNM,AJCC 8th ed) TNM Descriptors: y (post-treatment) Pathologic Staging (pTNM): pT3: Tumor invades through the muscularis propria into pericolorectal tissues Regional Lymph Nodes (pN): pN1b: Two or three regional lymph nodes are positive Distant Metastasis (pM): Not applicable/Not confirmed pathologically in this case Consensus review 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 here today with his . Recent eye surgery. Appetite: Good. Wt. down 6# since 12/13/21 Energy level: Not good. It's hard to get up and go. Denies fevers or recent illness. Resp:denies cough or sob Cardiac:denies chest pain/palpitations GI:+pain around stoma with occ. bleeding from stoma-followed at [facility] for possible repair, denies n/v, ostomy functioning well-liquid output-takes imodium prn :denies dysuria/hematuria Extrem:frequent falls, denies new pain Neuro:tingling to fingers/feet Skin:denies rashes Heme:as above, denies bleeding elsewhere The ROS is otherwise negative. Past medical history, appointments, medications, allergies reviewed. No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 lymph node (08/13). 03/25/2020 TB Recs Discussion: Good response to treatment however still residual radiological disease especially on the right site. Persistent Right lateral pelvic LN. Robotic APR with RPLND (Right pelvic LN dissection) Physical Exam: Ht 170.2 cm (5' 7 ) Wt 70.9 kg (156 lb 6.4 oz) BMI 24.50 kg/m General - awake, alert, no acute distress Abdominal - WNL Anorectal: Perianal skin is intact. No erythema, induration or excoriation. No fissure, fistula or external hemorrhoids. Assessment Medical Decision Making: Assessment & Diagnosis: Isaias Haji is a 66 year old male with a hhistory of rectal cancer s/p APR now with colostomy prolapse Data Reviewed: Tests & Documents Reviewed/ordered: Review of prior notes from previous visits Review of prior operative reports Review of Pathology Review of Imaging: CT Abdomen, CT Pelvis, CT Chest Review of Procedures / Tests: Colonoscopy Assessment by: [facility] Team I have independently interpreted: CT Abdomen, CT Pelvis, CT Chest I have discussed Isaias Haji's treatment plan and/or results with himself. Treatment plan: stoma team consult if they are unable to help, he may need ostomy revision with me he will reach out Risk of morbidity, mortality and/or complications of treatment plan: moderate documented in this encounter [facility] 03-15-2022 Note HNO ID: [id number] Author: Genia Clement RN Service: Nursing Author Type: Registered Nurse Type: Progress Notes Filed: 03/15/2022 2:24 PM Note Text: Radiology Service Progress Note DATE OF SERVICE: March 15, 2022 TIME: 2:15 PM PATIENT WEIGHT: 151LBS PATIENT IDENTITY VERIFICATION COMPLETED USING TWO (2) STANDARD IDENTIFIERS: Name and Date of confirmed by patient verbally. FALL SCREENING: Has the patient had 2 falls in the last year or 1 fall with injury or currently using an Ambulatory Assistive Device (Walker, Cane, Wheelchair, Crutches, etc.)? Yes, Patient High Risk for Falls What interventions were put in place to prevent falls during this visit? Uses a walker at home. PATIENT GENDER DATA: Male ALLERGIES: Reviewed and unchanged CONTRAST ALLERGY: No EXAM: MRI - CONTRAST TYPE: GROUP II IV SITE: Ambulatory: A peripheral IV was started in the Right antecubital site with a #22g diffussics.. and A Saline lock was inserted per protocol IV SITE APPEARANCE: Clean,Dry and Intact SIGNATURE: Genia Clement RN PATIENT NAME: Isaias Haji DATE: March 15, 2022 TIME: 2:15 PM [facility] 03-15-2022 History of Presen t illness Narrative Radiology Service Progress Note DATE OF SERVICE: March 15, 2022 TIME: 2:15 PM PATIENT WEIGHT: 151LBS PATIENT IDENTITY VERIFICATION COMPLETED USING TWO (2) STANDARD IDENTIFIERS: Name and Date of confirmed by patient verbally. FALL SCREENING: Has the patient had 2 falls in the last year or 1 fall with injury or currently using an Ambulatory Assistive Device (Walker, Cane, Wheelchair, Crutches, etc.)? Yes, Patient High Risk for Falls What interventions were put in place to prevent falls during this visit? Uses a walker at home. PATIENT GENDER DATA: Male ALLERGIES: Reviewed and unchanged CONTRAST ALLERGY: No EXAM: MRI - CONTRAST TYPE: GROUP II IV SITE: Ambulatory: A peripheral IV was started in the Right antecubital site with a #22g diffussics.. and A Saline lock was inserted per protocol IV SITE APPEARANCE: Clean,Dry and Intact SIGNATURE: Genia Clement RN PATIENT NAME: Isaias Haji DATE: March 15, 2022 TIME: 2:15 PM documented in this encounter [facility] 03-15-2022 Miscellaneous Notes Radiology Service Progress Note PATIENT NAME: Isaias Hjai DATE OF SERVICE: March 15, 2022 TIME: 2:54 PM PATIENT IDENTITY VERIFICATION COMPLETED USING TWO (2) IDENTIFIERS: Name and Date of confirmed by patient verbally and Name and Date of confirmed by identification band. FALL SCREENING: Has the patient had 2 falls in the last year or 1 fall with injury or currently using an Ambulatory Assistive Device (Walker, Cane, Wheelchair, Crutches, etc.)? Yes PATIENT GENDER DATA: Male PATIENT RELEVANT IMPLANT DATA REVIEWED: Yes RADIOLOGY DEPARTMENT: MR; Exam(s) Completed: Body: Liver (routine) PERIPHERAL IV DATA: Site assessment: Clean,Dry and Intact, Site disposition Discontinued SIGNED BY: MARLENE Camilo March 15, 2022 2:54 PM documented in this encounter [facility] 12-13-2021 History of Presen t illness Narrative Chief Complaint Patient presents with: Established Patient HPI: Isaias Haji is a 66 year old male who presents here today for follow up rectal cancer. 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 Biomarkers: Mismatch repair ICH: MLH-1 (M1) positive MSH2 (25D12) positive MSH6 (44) positive PMS2 ([id number]) positive Result of Microsatellite Instability Study -Negative (no loss of mismatch protein; no microsatellite instability detected). Baseline CEA: 24.8 on 05/15/[address] Leonardo's previous note: H/o CAD (status post CABG 5 vessels in 2007), CVA (2008, 2011 and 2014; residual numbness and weakness on the left side; cannot discriminate temperature on that side), DM2 h/o of R CEA and b/l leg angioplasty. Presented to [facility] on 05/02/2019 with an episode of syncope. He was orthostatic on presentation and had a hemoglobin of 10 g/dL. He had endorsed intermittent GI bleeding over the previous year. He was admitted and Plavix was held as well as aspirin initially. Patient underwent colonoscopy on 05/05/2019. He was observed to have a rectal mass about half centimeter from the anal verge. There were 25-6 mm polyps in the descending colon and one less than 5 mm polyp in the sigmoid colon. There was a 6-9 mm polyp in the cecum. The malignant partially obstructing tumor in the rectum was biopsied. Pathology: A. Cecal mass, biopsy: Tubulovillous adenoma. Negative for malignancy. See comment. B. Descending colon polyp, biopsy: Fragments of tubular adenoma. Fragments of fecal material. C. Descending colon polyp #2, biopsy: Fragments of tubular adenoma. Fragments of fecal material. D. Sigmoid colon polyp, biopsy: Fragments of tubular adenoma. E. Rectal mass, biopsy: Invasive mucinous adenocarcinoma. See comment. Hemoglobin had declined 8.3 g/dL and he received a 2 unit red blood cell transfusion. Patient [facility] and underwent evaluation by Dr. Garcia on 05/15/2019. Flexible sigmoidoscopy revealed a large fungating mass on the posterior aspect of the rectum extending along the left side to the anterior margin. It was fixated and extending into the sphincter past the dentate line. MRI rectum 05/15/2019: RESULT: TUMOR LOCATION: Location: Lower third rectum Distance to top of internal anal sphincter: Abuts and involves the internal anal sphincter Distance to anal verge: 3.1 cm Relationship to peritoneal reflection: below TUMOR CHARACTERISTICS: Type: ulcerated Tumor Length: 5.1 Circumferential extent: 50%-75% superiorly to near circumferential involvement inferiorly. Wall invasion: Present CIRCUMFERENTIAL RESECTION MARGIN: Applicable: no EXTRAMURAL VASCULAR INVASION: None OTHER STRUCTURES/ ORGANS INVOLVED: none LYMPH NODES: Mesorectal lymph nodes: Likely Malignant: * 0.8 x 0.6 cm RIGHT mesorectal lymph node (16:51) * 0.5 x 0.4 cm LEFT mesorectal lymph node (16:41), indeterminate Extra mesorectal lymph nodes: * 0.9 x 0.8 cm LEFT internal iliac lymph node (16:31) * 1.0 x 0.9 cm RIGHT external iliac chain lymph node (14:34) 5 CM T3 N1 LOW RECTAL TUMOR WITH WITH INVOLVEMENT OF THE INTERNAL ANAL SPHINCTER. SUSPICIOUS APPEARING MESORECTAL AND BILATERAL EXTRA MESORECTAL LYMPH NODES DESCRIBED. cT3 cN1 CT chest 05/15/2019: 1. Tiny 2 mm indeterminate nodule within the right lung. No additional pulmonary nodules identified. Follow-up CT per clinical protocol suggested to ensure stability in this patient with known malignancy. 2. No thoracic lymphadenopathy. 3. Small hiatal hernia. He has chronic right-sided sciatica-type pain. Pain starts lateral and inferior to the right SI joint and radiates into the thigh. This been present several years. He has paresis of the left arm. 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 Left leg strength normal. Previous therapy: 1) Concurrent chemotherapy with long course radiation in the neoadjuvant setting. Underwent a repeat evaluation main campus. MRI Rectum 09/18/2019: INTERVAL DECREASE IN SIZE OF MUCINOUS LOW RECTAL TUMOR WITH PERSISTENT INVOLVEMENT OF THE INTERNAL ANAL SPHINCTER. MESORECTAL AND BILATERAL INTERNAL ILIAC ADENOPATHY. mrTRG: Grade 3 - Moderate response Post Treatment mr: T3 N1 Tumor board discussion and recommendation: Neoadjuvant therapy recommended: Yes Total Neoadjuvant Therapy: Long-course chemoradiation (5 weeks) followed by consolidation chemotherapy (4 months) if responsive to chemoradiotherapy. After completion of ELMA, assessment for complete clinical response and discussion regarding active surveillance versus surgery.. Anticipated surgical treatment: possible robotic APR with possible LPLND. Previoius therapy: 1) FOLFOX. He received cycle #1 on 10/21/2019. He had insomnia the first night and felt some generalized fatigue but he had no flare of his chronic neuropathy/sciatic pain (per previous note: baseline neuropathy pain in the fingertips and toes with the left fingertips affected more than the right. His ambulation around the house is limited by his sciatica and his peripheral vascular disease. He prefers to use of a wheelchair when going to medical appointments). [place] well the remainder of that week but then Presented to the ED with a fever of 100.5 along with nausea and vomiting 10/29/2019. ANC was 7000 on admission (2500 the day of discharge 10/31). He also noticed less urine output over the preceding week. He was found to be septic. Cultures eventually grew Klebsiella and urine and blood. He required initial management in the ICU initially but did not require pressor support. He also had evidence of prerenal azotemia. Patient had a CT of the abdomen and pelvis to rule out abscess-- CT A/P 10/31/2019: FINDINGS: There is prominent interstitial thickening or subsegmental atelectasis in both lower lobes. The heart is enlarged. There is a small hiatal hernia. Liver is enlarged and fatty infiltrated. There is a small hemangioma in the right lobe. Bile ducts are not dilated.. Normal gallbladder and extrahepatic biliary system. Normal spleen. Normal pancreas. Normal bilateral adrenal glands. Normal right kidney. Normal left kidney. Normal visualized stomach. Mild nonspecific ileus with diffuse fecal retention throughout the colon. The appendix is visualized and appears normal. Atherosclerotic changes of the aorta without evidence for aneurysm. Normal inferior vena cava. Normal retroperitoneum. Incompletely distended thick-walled bladder likely of no significance Mild nonspecific prominence of the prostate Small fat-containing right inguinal hernia.. Normal osseous structures. IMPRESSION: Mild nonspecific ileus with diffuse retention in the colon.. Enlarged fatty infiltrated liver with small hemangioma in the right lobe. Improved rather quickly and was able to be discharged on 10/31 with instructions to continue a one week course of Duricef. Serum creatinine normalized to 1.03 mg/dL time of discharge. Completed chemotherapy February 2020. 03/11/20 MRI rectum IMPRESSION: Low rectal mucinous tumor without residual viable soft tissue component, but with residual mucinous change. Persistently enlarged bilateral internal iliac lymph nodes, one of which is mucinous. mrTRG: Grade 2 - Good response 03/25/2020 TB Recs Discussion: Good response to treatment however still residual radiological disease especially on the right site. Persistent Right lateral pelvic LN. Robotic APR with RPLND (Right pelvic LN dissection) Patient underwent robotic abdominal perineal resection with right lateral pelvic lymph node dissection and creation of an end colostomy and primary closure of the perineal defect on 05/26/2020. Pathology: FINAL DIAGNOSIS 1. Sigmoid colon, rectum and anus, abdominoperineal resection (A)- Rare residual adenocarcinoma cells present in mucin pools with associated fibrosis, chronic inflammation and calcifications, consistent with treatment effect. See synoptic and comment. - Two tumor deposits. - Metastatic adenocarcinoma involving one lymph node (1/7). - Negative surgical margins. - No evidence of lymphovascular or perineural invasion. 2. Right lateral pelvic lymph nodes, excision (B) - Metastatic adenocarcinoma involving one lymph node (1/7). DSA 06/02/2020 COMMENT 1. CAM 5.2 stain was performed on blocks A5, A8, A11, A12 and A 28 to exclude residual tumor. Rare adenocarcinoma cells are noted on CAM 5.2 stain on slides A5, A11 and A28, supportive of the diagnosis. CAM 5.2 was negative for residual carcinoma cells on slides A8 and A12. Rare tumor cells from the rectal tumor are noted in mucin pools within perirectal adipose tissue and are 0.5 cm from the radial margin (measured on the glass slide). Seven lymph nodes were identified in the perirectal/pericolonic adipose tissue after thorough examination of the fat and a total of 25 cassettes submitted for histologic analysis. Another seven lymph nodes were submitted as part B. All lymph nodes included in the case (total of 14 lymph nodes) correspond to regional lymph nodes and are summarized in the synoptic report. Laboratory Developed Test (LDT) Disclaimer: Positive and negative controls stain appropriately. Performance characteristics of immunohistochemical, immunofluorescent and chromogenic in-situ hybridization tests have been determined by [facility]'s [facility] [place] ([facility]) in a manner consistent with CLIA requirements. One or more of these tests have not been cleared or approved by the FDA. [facility] is regulated under CLIA as qualified to perform high-complexity testing. These tests are used for clinical purposes. They should not be regarded as investigational or for research. SYNOPTIC REPORT OF [facility] PATHOLOGIC FINDINGS SIGMOID, RECTUM AND ANUS: COLON AND RECTUM:RESECTION, INCLUDING TRANSANAL DISK EXCISION OF RECTAL NEOPLASMS WORKSHEET: Procedure: Abdominoperineal resection Tumor Site: Rectum Tumor location: Entirely below the anterior peritoneal reflection Tumor Size: Greatest dimension: 0.8 cm Macroscopic Tumor Perforation: Not identified Macroscopic Intactness of Mesorectum: Complete Histologic Type: Adenocarcinoma Histologic Grade: Not applicable Tumor Extension: Tumor invades through the muscularis propria into pericolorectal tissue Margins: All margins are uninvolved by invasive carcinoma, high-grade dysplasia, intramucosal adenocarcinoma, and adenoma Margins examined: proximal, distal, radial Distance of tumor from radial margin (required only for rectal tumors): 0.5 cm Distance of tumor from distal margin (recommended for rectal tumors): 4.5 cm Proximal Margin: Uninvolved by invasive carcinoma Distal Margin: Uninvolved by invasive carcinoma Circumferential Radial Margin: Uninvolved by invasive carcinoma Mesenteric Margin: Not applicable: . Treatment Effect: Present-Single cells or rare small groups of cancer cells (near complete response, score 1) Lymphovascular Invasion: Not identified Perineural Invasion: Not identified Tumor Deposits: Present Specify number of deposits: 2 Regional Lymph Nodes: Number of nodes involved: 2 Number of nodes examined: 14 Pathologic Stage Classification (pTNM,AJCC 8th ed) TNM Descriptors: y (post-treatment) Pathologic Staging (pTNM): pT3: Tumor invades through the muscularis propria into pericolorectal tissues Regional Lymph Nodes (pN): pN1b: Two or three regional lymph nodes are positive Distant Metastasis (pM): Not applicable/Not confirmed pathologically in this case Consensus review 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 went to [facility] ED 09/23/21 for UTI. He went back to the ED next day-elevated troponin. Dx-UTI, pneumonia, NSTEMI. He had home PT afterwards that he feels helped a lot. Pt. here today with his . Appetite: Real good. Wt. up 1# since 2020 Energy level: Not real good. Denies fevers. Resp:denies cough or sob, +sinus drainage-followed by PCP for this-has seen ENT in the past Cardiac:denies chest pain/palpitations GI:+pain around stoma with occ. bleeding from stoma, denies n/v, ostomy functioning well-liquid output-takes imodium prn :denies dysuria/hematuria Extrem:occ. L shoulder pain s/p fall-followed by Ortho, denies pain elsewhere Neuro:tingling to fingers Skin:denies rashes Heme:as above The ROS is otherwise negative. Past medical history, appointments, medications, allergies reviewed. No changes. EXAM: BP 144/83 Pulse 79 Temp 36.7 C (98.1 F) (Temporal) Wt 68.5 kg (151 lb) BMI 23.65 kg/m APPEARANCE Well appearing, alert, in no acute distress, well-hydrated, well nourished. HEART RRR with normal S1 and S2, no murmurs LUNG clear to auscultation LYMPH NODES No cervical lymphadenopathy, No supraclavicular lymphadenopathy and No axillary lymphadenopathy. ABDOMEN ostomy, bowel sounds normoactive, soft, non-tender, non-distended EXTREMITIES No edema NEURO Awake, alert and oriented x 3, using walker and No involuntary motions. SKIN Skin color, texture, turgor normal, no suspicious rashes or lesions LABS: Component Latest Ref Rng & Units 03/05/2021 05/24/2021 11/22/2021 WBC 3.70 - 11.00 k/uL 8.90 5.29 6.84 RBC 4.20 - 6.00 m/uL 4.71 4.66 4.80 Hemoglobin 13.0 - 17.0 g/dL 13.1 13.0 12.8 (L) Hematocrit 39.0 - 51.0 % 41.2 40.2 40.2 MCV 80.0 - 100.0 fL 87.5 86.3 83.8 MCH 26.0 - 34.0 pg 27.8 27.9 26.7 MCHC 30.5 - 36.0 g/dL 31.8 32.3 31.8 RDW-CV 11.5 - 15.0 % 14.6 15.0 14.6 Platelet Count 150 - 400 k/uL 274 272 292 MPV 9.0 - 12.7 fL 8.8 (L) 8.6 (L) 8.9 (L) Neut% % 82.0 73.9 71.4 Abs Neut (ANC) 1.45 - 7.50 k/uL 7.29 3.89 4.88 Lymph% % 9.2 14.9 15.6 Abs Lymph 1.00 - 4.00 k/uL 0.82 (L) 0.79 (L) 1.07 Carbon% % 8.3 10.0 10.4 Abs Carbon <0.87 k/uL 0.74 0.53 0.71 Eosin% % 0.3 0.8 1.9 Abs Eosin <0.46 k/uL 0.03 0.04 0.13 Baso% % 0.2 0.4 0.4 Abs Baso <0.11 k/uL <0.03 <0.03 0.03 Immature Gran % % 0.3 IMMATURE GRANS (ABS) <0.10 k/uL <0.03 NRBC /100 WBC 0.0 Absolute nRBC <0.01 k/uL <0.01 <0.01 <0.01 DTYPE Auto Nucleated Reds 0 /100 WBC 0.0 0.0 Diff Type Auto Diff Auto Diff Component Latest Ref Rng & Units 03/05/2021 05/24/2021 11/22/2021 Protein, Total 6.3 - 8.0 g/dL 7.3 7.3 7.5 Albumin 3.9 - 4.9 g/dL 4.4 4.2 4.3 Calcium 8.5 - 10.2 mg/dL 10.0 9.8 9.2 Bilirubin, Total 0.2 - 1.3 mg/dL 0.2 0.3 0.3 Alkaline Phosphatase 38 - 113 U/L 150 (H) 171 (H) 127 (H) AST 14 - 40 U/L 27 35 29 Glucose 74 - 99 mg/dL 108 (H) 267 (H) 139 (H) BUN 9 - 24 mg/dL 20 19 18 Creatinine 0.73 - 1.22 mg/dL 0.96 0.84 0.89 Sodium 136 - 144 mmol/L 140 137 138 Potassium 3.7 - 5.1 mmol/L 4.2 4.6 3.9 Chloride 97 - 105 mmol/L 97 95 (L) 98 CO2 22 - 30 mmol/L 33 (H) 30 31 (H) Anion Gap 9 - 18 mmol/L 10 12 9 ALT 10 - 54 U/L 27 35 29 eGFR- >60 >60 eGFR-All Other Races . >60 >60 eGFR >=60 mL/min/1.73m 96 Component Latest Ref Rng & Units 11/30/2020 03/05/2021 04/07/2021 05/24/2021 08/25/2021 11/22/2021 CEA <=2.9 ng/mL 4.8 (H) 6.7 (H) 6.2 (H) 6.9 (H) 5.7 (H) 4.0 (H) RADIOLOGY: CT chest 11/22/21: IMPRESSION: No developing suspicious mass or adenopathy. Comminuted fracture of the left humeral head. CT abd/pelvis 11/22/21: IMPRESSION: Subtle new low attenuation foci in the liver may represent hepatic metastatic disease. Hepatic MR recommended for further evaluation MRI liver 12/09/21: IMPRESSION: THERE ARE MULTIPLE INDETERMINATE FAT-CONTAINING NODULES IN THE LIVER. IT IS UNUSUAL FOR METASTATIC LESIONS FROM RECTAL CANCER TO CONTAIN FAT. A FOLLOW-UP MRI, POSSIBLY ON A 3T MAGNET, COULD BE OBTAINED IN 3 MONTHS TO ASSESS FOR ANY CHANGE IN SIZE. ASSESSMENT/PLAN: 1. 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 Per Dr. 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 -Tolerated neoadjuvant chemo/radiation well with exception diarrhea that caused ~week delay. However he went on to complete 25/25 fxs radiation with additional 3 day boost along with Xeloda (no dose reduction). -ypT3 ypN1b M0. -I personally reviewed CT images and again with patient and independently verified and agreed with the radiologist's findings. The focus of fatty liver is overall unchanged in size. SANA. -Outlined plan for CT scans every 6 months until 2 years out from surgery then annually. Plan: -Labs then OV in about 3 months. -CTs in 6 months. - No concerning findings on exam. - Reviewed labs/CT's/MRI liver with pt. - MRI liver (on 3T magnet) in 3 months at [place]. - Needs appt. with Dr. Garcia d/t stoma pain/bleeding. Pt. will call. - Follow up pending above. - Pt. aware to call office with any questions/concerns. The patient indicates understanding of these issues and agrees with the plan. Discussed case with Dr. Leonardo who agrees with treatment plan. All documentation from previous visit of 05/27/21-Dr. Leonardo/myself was copied and pasted, documentation has been reviewed and edited as necessary for today's visit. Everardo Yusuf APRN.ARTI documented in this encounter [facility] 12-09-2021 History of Presen t illness Narrative Radiology Service Progress Note DATE OF SERVICE: December 09, 2021 TIME: 3:02 PM PATIENT IDENTITY VERIFICATION COMPLETED USING TWO (2) STANDARD IDENTIFIERS: Name and Date of confirmed by patient verbally. FALL SCREENING: Has the patient had 2 falls in the last year or 1 fall with injury or currently using an Ambulatory Assistive Device (Walker, Cane, Wheelchair, Crutches, etc.)? Yes, Patient High Risk for Falls What interventions were put in place to prevent falls during this visit? Instructed Patient to Call for Help if Needed, Offered Assistance with Transfers/Clothing, Instructed Patient to Remain Seated (Not on Exam Table) Until Exam and Increased Observations by Caregivers PATIENT GENDER DATA: Male PATIENT RELEVANT IMPLANT DATA REVIEWED: Yes ALLERGIES: Reviewed and unchanged CONTRAST ALLERGY: NO. EXAM: MRI - CONTRAST TYPE: GROUP I OR GROUP III RISK FACTORS: N/A CREATININE: Creatinine Date Value Ref Range Status 11/22/2021 0.89 0.73 - 1.22 mg/dL Final 05/24/2021 0.84 0.73 - 1.22 mg/dL Final 03/05/2021 0.96 0.73 - 1.22 mg/dL Final Estimated Glomerular Filtration Rate Date Value Ref Range Status 11/22/2021 96 >=60 mL/min/1.73m Final Comment: Estimated Glomerular Filtration Rate (eGFR) is calculated using the 2020 CKD-EPI creatinine equation. This equation utilizes serum creatinine, sex, and age as parameters. The creatinine assay has traceable calibration to isotope dilution-mass spectrometry. Refer to KDIGO guidelines for clinical interpretation. In patients with unstable renal function, e.g. those with acute kidney injury, the eGFR may not accurately reflect actual GFR. eGFR- Date Value Ref Range Status 05/24/2021 >60 Final P.O.C.T. RESULTS: POC done: Yes, See Lab Tab December 09, 2021 TREATMENT: N/A PERIPHERAL IV DATA: Ambulatory: A peripheral IV was started in the Right antecubital site with a Angio cath: 22 gauge. RADIOLOGY DEPARTMENT: MR; Exam(s) Completed: Body: Liver (routine) SIGNATURE: RT Lizbeth(R) PATIENT NAME: Isaias Haji DATE: December 09, 2021 TIME: 3:02 PM documented in this encounter [facility] 11-23-2021 Miscellaneous Notes SPOKE TO PT AND SCHEDULED. Nikki Gabriel Reviewed CT's with pt. Please schedule MRI liver soon. Order in. If not able to have MRI prior to OV then please push OV out. Thank you. Everardo Yusuf APRN.OILER HELPER documented in this encounter [facility] 11-22-2021 History of Presen t illness Narrative Radiology Service Progress Note DATE OF SERVICE: November 22, 2021 TIME: 4:09 PM PATIENT IDENTITY VERIFICATION COMPLETED USING TWO (2) STANDARD IDENTIFIERS: Name and Date of confirmed by patient verbally. FALL SCREENING: Has the patient had 2 falls in the last year or 1 fall with injury or currently using an Ambulatory Assistive Device (Walker, Cane, Wheelchair, Crutches, etc.)? No PATIENT GENDER DATA: Male PATIENT RELEVANT IMPLANT DATA REVIEWED: Yes ALLERGIES: Reviewed and unchanged CONTRAST ALLERGY: NO. EXAM: CT -CONTRAST INDUCED NEPHROPATHY RISK FACTORS: Patient age > 60 years CREATININE: Creatinine Date Value Ref Range Status 11/22/2021 0.89 0.73 - 1.22 mg/dL Final 05/24/2021 0.84 0.73 - 1.22 mg/dL Final 03/05/2021 0.96 0.73 - 1.22 mg/dL Final Estimated Glomerular Filtration Rate Date Value Ref Range Status 11/22/2021 96 >=60 mL/min/1.73m Final Comment: Estimated Glomerular Filtration Rate (eGFR) is calculated using the 2020 CKD-EPI creatinine equation. This equation utilizes serum creatinine, sex, and age as parameters. The creatinine assay has traceable calibration to isotope dilution-mass spectrometry. Refer to KDIGO guidelines for clinical interpretation. In patients with unstable renal function, e.g. those with acute kidney injury, the eGFR may not accurately reflect actual GFR. eGFR- Date Value Ref Range Status 05/24/2021 >60 Final P.O.C.T. RESULTS: POC done: Yes, See Lab Tab November 22, 2021 TREATMENT: N/A PERIPHERAL IV DATA: Ambulatory: A peripheral IV was started in the Left hand with a Angio cath: 22 gauge. RADIOLOGY DEPARTMENT: CT; Exam(s) Completed: Chest Abdomen Pelvis SIGNATURE: RT Kavon(Dennis) PATIENT NAME: Isaias Haji DATE: November 22, 2021 TIME: 4:09 PM documented in this encounter [facility] Rectal cancer (HCC) Malignant neoplasm of rectum [facility] Rectal cancer (HCC)- Primary Malignant neoplasm of rectum Abnormal CT of the abdomen Nonspecific (abnormal) findings on radiological and other examination of abdominal area, including retroperitoneum [facility] Rectal cancer (HCC) Malignant neoplasm of rectum Abnormal CT of the abdomen Nonspecific (abnormal) findings on radiological and other examination of abdominal area, including retroperitoneum [facility] ([facility])- Primary Malignant neoplasm of rectum Abnormal MRI, liver Nonspecific (abnormal) findings on radiological and other examination of biliary tract [facility] Diagnosis Rectal cancer (HCC) Malignant neoplasm of rectum Abnormal MRI, liver Nonspecific (abnormal) findings on radiological and other examination of biliary tract [facility] Diagnosis History of rectal cancer- Primary Personal history of malignant neoplasm of rectum, rectosigmoid junction, and anus [facility] Diagnosis Attention to colostomy (HCC)- Primary Attention to colostomy [facility] Diagnosis Colostomy complication Unspecified complication of colostomy or enterostomy [facility] Diagnosis Rectal cancer (HCC)- Primary Malignant neoplasm of rectum Elevated CEA Elevated carcinoembryonic antigen [CEA] documented in this encounter [facility] note* Diagnosis Rectal cancer (HCC) Malignant neoplasm of rectum Elevated CEA Elevated carcinoembryonic antigen [CEA] documented in this encounter [facility] note* Diagnosis Rectal cancer (HCC)- Primary Malignant neoplasm of rectum documented in this encounter [facility] note* Diagnosis Colostomy complication- Primary Unspecified complication of colostomy or enterostomy Peristomal hernia Hernia of unspecified site of abdominal cavity without mention of obstruction or gangrene [facility] Consultation (Routine) - New Request Specialty Diagnoses / Procedures Referred By Araceli gama Referred To Contact PreOp Diagnoses Colostomy complication Peristomal hernia Angeli Roberts DO [address] [place] [id number] Referral ID Status Reason Start Date Expiration Date V isits Requested Visits Authorized [id number] New Request 07/19/2023 08/12/2024 1 1 * Consultation (Routine) - New Request Specialty Diagnoses / Procedures Referred By Araceli gama Referred To Contact General Surgery Diagnoses Colostomy complication Peristomal hernia Angeli Roberts DO [address] [place] [address] Referral ID Status Reason Start Date Expiration Date V isits Requested Visits Authorized [id number] New Request 07/19/2023 08/12/2024 1 1 [facility] Diagnostic Procedure Only (Routine) - Closed Specialty Diagnoses / Procedures Referred By Araceli gama Referred To Contact Radiology / RADIO MRI [facility] Diagnoses Rectal cancer (HCC) [C20] Abnormal CT of the abdomen [R93.5] Procedures MRI ABDOMEN W/O & W/CONTRAST MATERIAL MRI WWO ABD 300 Everardo Yusuf APRN.OILER HELPER [address] [place] [address] Radio Mri [facility] [address] [place] [address] Referral ID Status Reason Start Date Expiration Date Visits Re quested Visits Authorized [id number] Closed 11/25/2021 12/24/2021 1 1 [facility] Summary Purpose Family History No Family History Records FoundNo Family History Records FoundNo Family History Records FoundNo Family History Records Found Advance Directives No Advanced Directives Records FoundDocuments on File Type Date Recorded Patient Buyer Expl anation Advance Directive(s) 05/18/2020 3:04 PM Documents on File Type Date Recorded Patient Buyer Expl anation Advance Directive(s) 05/18/2020 3:04 PM Reason for Referral Specialty Diagnoses / Procedures Referred By Contac t Referred To Contact CT IMAGING Diagnoses Rectal cancer (HCC) Procedures CT CHEST W IVCON CAT SCAN OF CHEST CONTRAST Everardo Yusuf APRN.OILER HELPER [address] [place] [address] Ct Imaging Referral ID Status Reason Start Date Expiration Date V isits Requested Visits Authorized [id number] Closed Auto-Generate d Referral 11/05/2021 12/04/2021 1 1 Specialty Diagnoses / Procedures Referred By Contac t Referred To Contact CT IMAGING Diagnoses Rectal cancer (HCC) Procedures CT ABD/PEL W IVCON CT ABD & PELVIS W/CONTRAST Everardo Yusuf APRN.OILER HELPER [address] [place] [address] Ct Imaging Referral ID Status Reason Start Date Expiration Date V isits Requested Visits Authorized [id number] Closed Auto-Generate d Referral 11/05/2021 12/04/2021 1 1 Specialty Diagnoses / Procedures Referred By Contac t Referred To Contact CT IMAGING Diagnoses Rectal cancer (HCC) Elevated CEA Procedures CT CHEST W IVCON DIAGNOSTIC COMPUTED TOMOGRAPHY THORAX W/CONTRAST Everardo Yusuf, BACK TENDER [employer]OTH PRINTING.OILER HELPER [address] [place] [address] [place] [address] Referral ID Status Reason Start Date Expiration Date Visits Requested Visits Authorized [id number] Authorized Auto-Generat ed Referral 3 06/24/2023 1 1 Specialty Diagnoses / Procedures Referred By Contac t Referred To Contact CT IMAGING Diagnoses Rectal cancer (HCC) Elevated CEA Procedures CT ABD/PEL W IVCON CT ABD & PELVIS W/CONTRAST Everardo Yusuf, BACK TENDER CLOTH PRINTING.OILER HELPER [address] [place] [address] [place] [address] Referral ID Status Reason Start Date Expiration Date Visits Requested Visits Authorized [id number] Authorized Auto-Generat ed Referral 3 06/24/2023 1 1 Additional Source Comments (unrecognized sect ion and content) No Status Records FoundNo Status Records FoundNo Status Records FoundNo Status Records Found INFORMATION SOURCE (unrecogn ized section and content) DATE CREATED AUTHOR AUTHOR'S ORGANIZ ATION 03/16/2022 [facility] DATE CREATED AUTHOR AUTHOR'S ORGANIZ ATION 06/23/2023 [facility] DATE CREATED AUTHOR AUTHOR'S ORGANIZ ATION 09/26/2023 [facility] Source Comments (unrecognize d section and content) In the event this informatio n is protected by the Federal Confidentiality of Alcohol and Drug Abuse Patient Records regulations: The Federal rules restrict any use of the information to criminally investigate or prosecute any alcohol or drug abuse patient.[facility] the event this information is protected by the Federal Confidentiality of Alcohol and Drug Abuse Patient Records regulations: The Federal rules restrict any use of the information to criminally investigate or prosecute any alcohol or drug abuse patient.[facility] the event this information is protected by the Federal Confidentiality of Alcohol and Drug Abuse Patient Records regulations: The Federal rules restrict any use of the information to criminally investigate or prosecute any alcohol or drug abuse patient.[facility] the event this information is protected by the Federal Confidentiality of Alcohol and Drug Abuse Patient Records regulations: The Federal rules restrict any use of the information to criminally investigate or prosecute any alcohol or drug abuse patient.[facility] the event this information is protected by the Federal Confidentiality of Alcohol and Drug Abuse Patient Records regulations: The Federal rules restrict any use of the information to criminally investigate or prosecute any alcohol or drug abuse patient.[facility] Hospital[facility] the event this information is protected by the Federal Confidentiality of Alcohol and Drug Abuse Patient Records regulations: The Federal rules restrict any use of the information to criminally investigate or prosecute any alcohol or drug abuse patient.[facility] the event this information is protected by the Federal Confidentiality of Alcohol and Drug Abuse Patient Records regulations: The Federal rules restrict any use of the information to criminally investigate or prosecute any alcohol or drug abuse patient.[facility] the event this information is protected by the Federal Confidentiality of Alcohol and Drug Abuse Patient Records regulations: The Federal rules restrict any use of the information to criminally investigate or prosecute any alcohol or drug abuse patient.[facility] the event this information is protected by the Federal Confidentiality of Alcohol and Drug Abuse Patient Records regulations: The Federal rules restrict any use of the information to criminally investigate or prosecute any alcohol or drug abuse patient.[facility] the event this information is protected by the Federal Confidentiality of Alcohol and Drug Abuse Patient Records regulations: The Federal rules restrict any use of the information to criminally investigate or prosecute any alcohol or drug abuse patient.[facility] the event this information is protected by the Federal Confidentiality of Alcohol and Drug Abuse Patient Records regulations: The Federal rules restrict any use of the information to criminally investigate or prosecute any alcohol or drug abuse patient.[facility] the event this information is protected by the Federal Confidentiality of Alcohol and Drug Abuse Patient Records regulations: The Federal rules restrict any use of the information to criminally investigate or prosecute any alcohol or drug abuse patient.[facility] Hospital[facility] the event this information is protected by the Federal Confidentiality of Alcohol and Drug Abuse Patient Records regulations: The Federal rules restrict any use of the information to criminally investigate or prosecute any alcohol or drug abuse patient.[facility] the event this information is protected by the Federal Confidentiality of Alcohol and Drug Abuse Patient Records regulations: The Federal rules restrict any use of the information to criminally investigate or prosecute any alcohol or drug abuse patient.[facility] Hospital[facility] the event this information is protected by the Federal Confidentiality of Alcohol and Drug Abuse Patient Records regulations: The Federal rules restrict any use of the information to criminally investigate or prosecute any alcohol or drug abuse patient.[facility] Hospital[facility] the event this information is protected by the Federal Confidentiality of Alcohol and Drug Abuse Patient Records regulations: The Federal rules restrict any use of the information to criminally investigate or prosecute any alcohol or drug abuse patient.[facility] Care Teams (unrecognized sec tion and content) Vp Of Digital Marketing Relationship Specialty Start Date End Date Kendy Modi PCP - General Family Practice 01/21/13 Bipin Ford MD, [address] [place] [address] Physician Radiation Oncology 06/12/19 Jo Maria RN Specialty Staff Air Tactical Officer Oncology 01/16/20 [employer]p Of Digital Marketing Relationship Specialty Start Date End Date Kendy Modi PCP - General Family Practice 01/21/13 Bipin Ford MD, [address] [facility] [address] Physician Radiation Oncology 06/12/19 Jo Maria RN Specialty Staff Air Tactical Officer Oncology 01/16/20 Vp Of Digital Marketing Relationship Specialty Start Date End Date Kendy Modi PCP - General Family Practice 01/21/13 Bipin Ford MD, [address] [facility] [place] [address] Physician Radiation Oncology 06/12/19 Jo Maria RN Specialty Staff Air Tactical Officer Oncology 01/16/20 Vp Of Digital Marketing Relationship Specialty Start Date End Date Kendy Modi PCP - General Family Practice 01/21/13 Bipin Ford MD, [address] [facility] [place] [address] Physician Radiation Oncology 06/12/19 Jo Maria RN Specialty Staff Air Tactical Officer Oncology 01/16/20 Vp Of Digital Marketing Relationship Specialty Start Date End Date Kendy Modi PCP - General Family Practice 01/21/13 Bipin Ford MD, [address] [facility] [place] [address] Physician Radiation Oncology 06/12/19 Jo Maria RN Specialty Staff Air Tactical Officer Oncology 01/16/20 Vp Of Digital Marketing Relationship Specialty Start Date End Date Kendy Modi PCP - General Family Practice 01/21/13 Bipin Ford MD, [address] [place] [address] Physician Radiation Oncology 06/12/19 Jo Maria, RN Specialty Staff Air Tactical Officer Oncology 01/16/20 Vp Of Digital Marketing Relationship Specialty Start Date End Date Kendy Modi PCP - General Family Practice 01/21/13 Bipin Ford MD, [address] [place] [address] Physician Radiation Oncology 06/12/19 Jo Maria, RN Specialty Staff Air Tactical Officer Oncology 01/16/20 Vp Of Digital Marketing Relationship Specialty Start Date End Date Kendy Modi PCP - General Family Medicine 01/21/13 Bipin Ford MD, [address] [place] [address] Physician Radiation Oncology 06/12/19 Jo Maria RN Specialty Staff Air Tactical Officer Oncology 01/16/20 Vp Of Digital Marketing Relationship Specialty Start Date End Date Kendy Modi PCP - General Family Medicine 01/21/13 Bipin Ford MD, [address] [place] [address] Physician Radiation Oncology 06/12/19 Jo Maria RN Specialty Staff Air Tactical Officer Oncology 01/16/20 Vp Of Digital Marketing Relationship Specialty Start Date End Date Kendy Modi MD [address] [place] [address] PCP - General Family Medicine 05/24/23 Vp Of Digital Marketing Relationship Specialty Start Date End Date Kendy Modi PCP - General Family Medicine 01/21/13 Bipin Ford MD, [address] [place], [place] [address] Physician Radiation Oncology 06/12/19 Jo Maria RN Specialty Staff Air Tactical Officer Oncology 01/16/20 Vp Of Digital Marketing Relationship Specialty Start Date End Date Kendy Modi PCP - General Family Medicine 01/21/13 Bipin Ford MD, [address] [facility] [address] [place], [place] [address] Physician Radiation Oncology 06/12/19 Jo Maria RN Specialty Staff Air Tactical Officer Oncology 01/16/20 Vp Of Digital Marketing Relationship Specialty Start Date End Date Kendy Modi PCP - General Family Medicine 01/21/13 Bipin Ford MD, [address] [place] [address] Physician Radiation Oncology 06/12/19 Jo Maria RN Specialty Staff Air Tactical Officer Oncology 01/16/20 Vp Of Digital Marketing Relationship Specialty Start Date End Date Kendy Modi PCP - General Family Medicine 01/21/13 Bipin Ford MD, [address] [place] [address] Physician Radiation Oncology 06/12/19 Jo Maria RN Specialty Staff Air Tactical Officer Oncology 01/16/20 Vp Of Digital Marketing Relationship Specialty Start Date End Date Kendy Modi PCP - General Family Medicine 01/21/13 Bipin Ford MD, MD [address] [place], [place] [address] Physician Radiation Oncology 06/12/19 Jo Maria RN Specialty Staff Air Tactical Officer Oncology 01/16/20 Vp Of Digital Marketing Relationship Specialty Start Date End Date Kendy Modi PCP - General Family Medicine 01/21/13 Bipin Ford MD, [address] [place], [place] [id number] Physician Radiation Oncology 06/12/19 Jo Maria RN Specialty Staff Air Tactical Officer Oncology 01/16/20 Vp Of Digital Marketing Relationship Specialty Start Date End Date Kendy Modi MD [address] [place] [address] PCP - General Family Medicine 05/24/23 Reason for Visit (unrecogniz ed section and content) Specialty Diagnoses / Procedures [facility] Referred To Contact CT IMAGING Diagnoses Rectal cancer (HCC) Procedures CT CHEST W IVCON CAT SCAN OF CHEST CONTRAST Everardo Yusuf APRN.OILER HELPER [address] [place] [address] Ct Imaging Referral ID Status Reason Start Date Expiration Date V isits Requested Visits Authorized [id number] Closed Auto-Generate d Referral 11/05/2021 12/04/2021 1 1 Reason Comments Results Reason Comments Established Patient Reason Comments Radiology MRI Specialty Diagnoses / Procedures [facility] Referred To Contact Radiology / IMAGING Diagnoses Malignant neoplasm of rectum Abnormal findings on diagnostic imaging of liver and biliary tract Rectal cancer (HCC) [C20] Abnormal MRI, liver [R93.2] Procedures MRI ABDOMEN W/O & W/CONTRAST MATERIAL MRI WWO ABD 300 Everardo Yusuf APRN.OILER HELPER [address] [place] [address] Radio Mri [place] [address] [place] [address] Referral ID Status Reason Start Date Expiration Date Visits Re quested Visits Authorized [id number] Closed 03/02/2022 03/31/2022 1 1 Reason Comments Refill Request Reason Comments New Patient Colostomy complicati on . Specialty Diagnoses / Procedures Referred By Contac t Referred To Contact General Surgery Diagnoses Colostomy complication Kendy Modi MD [address] [place] [address] [facility] [address] [place] [address] Referral ID Status Reason Start Date Expiration Date V isits Requested Visits Authorized [id number] Pending Review 03/24/2023 04/17/2024 1 1 Reason Comments Patient Question Reason Comments Radiology CT Specialty Diagnoses / Procedures Referred By Contac t Referred To Contact CT IMAGING Diagnoses Rectal cancer (HCC) Elevated CEA Procedures CT CHEST W IVCON DIAGNOSTIC COMPUTED TOMOGRAPHY THORAX W/CONTRAST Everardo Yusuf APRN.OILER HELPER [address] [place] [address] [place] [address] Referral ID Status Reason Start Date Expiration Date V isits Requested Visits Authorized [id number] Closed Auto-Generate d Referral 05/26/2023 06/24/2023 1 1 Specialty Diagnoses / Procedures Referred By Contac t Referred To Contact CT IMAGING Diagnoses Rectal cancer (HCC) Elevated CEA Procedures CT CHEST W IVCON DIAGNOSTIC COMPUTED TOMOGRAPHY THORAX W/CONTRAST Everardo Yusuf, BALTAZAR.OILER HELPER [address] [place] [address] [place] [address] Reason Onset Date Comments Refill Request 07/03/2023 Reason Comments Follow-up Follow up visit, elizalde s have soreness and bleeding. He does get blisters that form, he thinks it could be from friction. FOR RECORDS PERTAINING TO PATIENTS WHO ARE OR HAVE BEEN ENROLLED IN A CHEMICAL DEPENDENCY/SUBSTANCEABUSE PROGRAM, SOME INFORMATION MAY BE OMITTED. This clinical summary was aggregated from multiple sources. Caution should be exercised in using it in the provision of clinical care. This summary normalizes information from multiple sources, and as a consequence, information in this document may materially change the coding, format and clinical context of patient data. In addition, data may be omitted in some cases. CLINICAL DECISIONS SHOULD BE BASED ON THE PRIMARY CLINICAL RECORDS. [facility] [employer] [facility]. provides no warranty or guarantee of the accuracy or completeness of information in this document.
== END | disposition home or self-care (01) ==
LOC: MFPLAB 15:24
PROVIDERS: PCP Family Medicine; Visit Provider Family Medicine
DX: Z12.5 Encounter for screening for malignant neoplasm of prostate (principal); E11.59 Type 2 diabetes mellitus with other circulatory complications
CPT/HCPCS: 36415; 80061; 82570; 84153; 84156; G0103

== ENCOUNTER 2023-11-11 14:49 | Emergency (ER) | payer BC, MEDICARE, OTHER, SELFPAY ==
[2023-11-11] VITALS (39 sets, daily range): BP systolic 125–215; BP diastolic 74–149; PULSE 65–92; RESP 0–17; TEMP 36.2–36.6; O2SAT 92–99; BMI 23.9
--- NOTE | 2023-11-11 15:19 | EKG12_ITS ---
Test Reason : STROKE Blood Pressure : / mmHG Vent. Rate : 077 BPM Atrial Rate : 077 BPM P-R Int : 158 ms QRS Dur : 092 ms QT Int : 382 ms P-R-T Axes : 060 014 157 degrees QTc Int : 432 ms Normal sinus rhythm T wave abnormality, consider inferior ischemia T wave abnormality, consider anterolateral ischemia Abnormal ECG Confirmed by Etienne Darden ([id number]), web content editor RY AU ([id number]) on 11/13/2023 10:50:07 AM Referred By: AMY Confirmed By:Etienne Darden
--- NOTE | 2023-11-11 15:19 | CT_ITS ---
We are attempting to reach an attending provider to discuss findings. An addendum with communication details will be sent when the communication is complete. STUDY: CT BRAIN WITHOUT CONTRAST REASON FOR EXAM: Male, 67 years old. Neuro deficit, acute, stroke suspected Individualized dose optimization techniques were used for this CT. TECHNIQUE: Transaxial CT imaging of the brain was performed without administration of intravenous contrast material. COMPARISON: None FINDINGS: There are calcifications noted in the distal vertebral arteries. There are calcifications noted in the cavernous carotid arteries. This is consistent for atherosclerotic disease. Normal calvarium. Old left cerebellar infarct. There is mild cerebral atrophy with widening of the extra-axial spaces and ventricular dilatation. There are areas of decreased attenuation within the white matter tracts of the supratentorial brain, consistent with microvascular disease changes. Old infarct in the thalamus. Old infarct the basal ganglia. Old right caudate head infarct. Normal brainstem. There is no intracranial hemorrhage. There are no findings of an acute ischemic infarction. Normal visualized paranasal sinuses. ASPECTS Score for Acute Strokes: 05/16 CT/STROKE Brain/Head without Cont IMPRESSION: There are no acute findings. Electronically Signed: Alexis Madrid MD at 15:34 EDT ,
--- NOTE | 2023-11-11 15:20 | CT_ITS ---
We are attempting to reach an attending provider to discuss findings. An addendum with communication details will be sent when the communication is complete. STUDY: CTA OF THE BRAIN REASON FOR EXAM: Male, 67 years old. Neuro deficit, acute, stroke suspected TECHNIQUE: CT angiography was performed with a multi-detector CT scanner. Data acquisition was obtained from the skull base through the vertex following intravenous administration of IV 100mL Isovue-370 contrast. MIP images were reconstructed from the axial data set. Post-processing of the angiographic images was performed, with multiplanar reformation and 3D reconstruction. MIPS images were obtained. Analyzed with [email or web address] Individualized dose optimization techniques were used for this CT. COMPARISON: None. FINDINGS: Normal bilateral petrous carotid arteries. There is calcified plaque formation of the right cavernous carotid artery, with a mild stenosis (less than 50%). There is calcified plaque formation of the left cavernous carotid artery, with a mild stenosis (less than 50%). Normal right A1 segments of the anterior cerebral artery. Normal left A1 segments of the anterior cerebral artery. Normal intact anterior communicating artery (ACOM). Normal bilateral A2 segments of the anterior cerebral arteries. Normal right M1 and M2 segments of the middle cerebral arteries, with a normal M1 bifurcation. Normal left M1 and M2 segments of the middle cerebral arteries, with a normal M1 bifurcation. Normal right posterior communicating artery (PCOM). Normal left posterior communicating artery (PCOM). Normal bilateral vertebral arteries. Normal basilar artery with a normal basilar bifurcation. The visualized bilateral superior cerebellar (SCA) arteries are normal. Normal bilateral P1, P2 and visualized P3 segments of the posterior cerebral arteries. There is no demonstrated aneurysm of the [place] of [place]. There is no demonstrated abnormality of the visualized brain. IMPRESSION: There is calcified plaque formation of the right cavernous carotid artery, with a mild stenosis (less than 50%). There is calcified plaque formation of the left cavernous carotid artery, with a mild stenosis (less than 50%). ALL ABOVE CRITERIA BY NASCET. STUDY: CTA NECK WITH CONTRAST REASON FOR EXAM: Male, 67 years old. Neuro deficit, acute, stroke suspected Individualized dose optimization techniques were used for this CT. TECHNIQUE: CT angiography with multi-detector data acquisition was performed from the aortic arch to the skull base following intravenous administration of IV 100mL Isovue-370 contrast. MIP images were reconstructed from the axial data set. Post-processing of the angiographic images was performed, with multiplanar reformation and 3D reconstruction. Analyzed with [email or web address] COMPARISON: None. FINDINGS: AORTIC ARCH: There is atherosclerotic calcific plaque formation of the aortic arch and great vessels arising from the aortic arch, without a hemodynamically significant stenosis. There is a normal origin of the brachiocephalic, left common carotid, and left subclavian arteries. Normal origins of the brachiocephalic, left common carotid, and left subclavian arteries. RIGHT CAROTID ARTERIES: There is atherosclerotic plaque formation of the common carotid artery, but without a hemodynamically significant stenosis. There is a short dissection of the right common carotid bulb. There is mild atherosclerotic plaque formation of the origin of the right internal carotid artery with less than 50% cross sectional diameter stenosis. There is a short dissection of the proximal right ICA. Normal visualized cervical portion of the right internal carotid artery. There is mild atherosclerotic plaque formation of the origin of the right external carotid artery with less than 50% cross sectional diameter stenosis.There is a short dissection of the proximal right ECA. LEFT CAROTID ARTERIES: There is atherosclerotic plaque formation of the common carotid artery, but without a hemodynamically significant stenosis. Normal left common carotid bulb. There is mild atherosclerotic plaque formation of the origin of the left internal carotid artery with less than 50% cross sectional diameter stenosis. Normal visualized cervical portion of the left internal carotid artery. There is mild atherosclerotic plaque formation of the origin of the left external carotid artery with less than 50% cross sectional diameter stenosis. VERTEBRAL ARTERIES: Normal bilateral vertebral arteries. CT/STROKE CTA Head AND Neck W/Con IMPRESSION: There is mild atherosclerotic plaque formation of the origin of the right and left internal carotid artery with less than 50% cross sectional diameter stenosis. ALL ABOVE CRITERIA BY NASCET. There is a short dissection of the right common carotid bulb extending to the proximal right ICA and proximal right ECA. No stenosis. ALL ABOVE CRITERIA BY NASCET. Electronically Signed: Alexis Madrid MD at 16:00 EDT ,
--- NOTE | 2023-11-11 15:21 | ED.VIS.STROK ---
HPI History of Present Illness Chief Complaint: Neuro S/Sx Informant: patient and spouse/S.O. Narrative Narrative: 67-year-old male presenting to the emergency room with neurologic symptoms. Patient states that he has had 2 prior strokes that have left him with left arm and left leg weakness that is pretty much resolved and persistent numbness. Last evening around 2000 hours he noticed that he started seeing a small boy to the right of him that was not there. He also noticed a small growth of the left him. These are intermittent. They do not speak. He also noticed a wavy line in the periphery of his left eye vision. He felt that the left side of his face was numb persisted around the perioral region. The perioral symptoms are intermittent but the left face is persistent. This morning he states his tongue did not feel like it was working right and his son felt he had slurred speech. Several days ago he had a fall in which she scraped his back but does not believe he sustained any other injuries. states that he has had these hallucinations like in the past with a UTI. He is on aspirin and Plavix following heart surgery in 2008 and had a stroke in 2009 while off Plavix. He denies any fevers. He notes a headache for 2 days. The patient notes that since his strokes he has had intermittent episodes where he gets his legs weak and he falls. He feels that that is happening more frequently today and opted not to walked into the emergency department. Looking into his prior imaging 2008 MRA/MRI showed: Recent but not acute infarct in the inferior medial right cerebellar hemisphere. 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 Cancer Cardiology follow-up encounter Carotid artery disease Colorectal cancer CPAP (continuous positive airway pressure) dependence CVA (cerebral vascular accident) Depression Diabetic neuropathy Dietary restriction Dyslipidemia Dysphagia Essential hypertension Gastric reflux GERD (gastroesophageal reflux disease) High cholesterol History of echocardiogram History of heart attack History of pain when walking History of stress test HTN (hypertension) Injury of back Injury of head and neck 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 Leg cramps Loss of hearing Non-smoker Obstructive sleep apnea Orthostatic hypotension ALEJANDRO (obstructive sleep apnea) Peripheral vascular occlusive disease Restless legs Restrictive lung disease Shortness of breath on exertion Syncope Type 2 diabetes mellitus Walker as ambulation aid Wears glasses Home Medications aspirin 81 mg chewable tablet 81 mg PO DAILY heart health 03/20/16 [History Last Taken 03/10/23] omeprazole 40 mg capsule,delayed release 40 mg PO DAILY gerd 01/09/20 [History Last Taken 03/10/23] fluticasone propionate 50 mcg/actuation nasal spray,suspension (Flonase Allergy Relief) 1 spray intranasal DAILY PRN allergies 12/17/20 [History Last Taken 09/22/21] gabapentin 300 mg capsule 300 mg PO DAILY neuropathy 12/17/20 [History Last Taken 03/10/23] insulin lispro 100 unit/mL subcutaneous pen (Humalog KwikPen (U-100) Insulin) See Rx Instructions subcut .COMPLEX diabetes 09/26/21 [History Last Taken 03/10/23] nitroglycerin 0.4 mg sublingual tablet 0.4 mg sublingual Q5M PRN chest pain #25 tabs 10/15/21 [Rx Last Taken Unknown] rosuvastatin 20 mg tablet 20 mg PO QHS cholesterol #90 tabs 02/13/23 [Rx Last Taken 03/10/23] peg 400-propylene glycol (PF) 0.4 %-0.3 % eye drops in a dropperette (Lubricant Eye (PG-PEG 400) (PF)) 1 drp EACH EYE DAILY PRN dry eye(s) 03/10/23 [History Last Taken Unknown] duloxetine 60 mg capsule,delayed release 30 mg (1/2 x 60 mg) PO DAILY depression #30 caps 03/12/23 [Rx Last Taken 03/10/23] carvedilol 6.25 mg tablet 6.25 mg PO BID #180 tabs 09/28/23 [Rx Last Taken Unknown] clopidogrel 75 mg tablet 75 mg PO DAILY blood thinner #90 tabs 10/10/23 [Rx Last Taken Unknown] insulin glargine-yfgn 100 unit/mL (3 mL) subcutaneous pen (Semglee (insulin glargine-yfgn) Pen) 50 unit subcut BID 11/11/23 [History Last Taken Unknown] Allergy/AdvReac Type Severity Reaction Status Date / Time No Known Allergies Allergy Verified 11/11/23 14:50 Family History Father CAD (coronary artery disease) Hypertension Cancer leukemia Diabetes Heart disease High cholesterol Mother CVA (cerebral vascular accident) Diabetes Breast cancer Brother Diabetes Surgical History Excision Max.Zygoma Face Tumor H/O coronary artery bypass surgery (05/30/08) History of bilateral cataract extraction History of coronary artery stent placement (01/02/15) History of eye surgery History of herniorrhaphy History of left heart catheterization (LHC) (~01/22/15) History of right and left heart catheterization (LHC) (~12/25/14) History of right-sided carotid endarterectomy History of tonsillectomy PTCA Left Anterior Tibial and Paroneal Artery Social History Smoking Status: Never smoker alcohol intake: never substance use type: does not use caffeine: Yes what type of physical activity do you participate in: none ROS ROS ED Constitutional Constitutional ED: Reports weakness; Denies chills, fever(s) or weight loss Eyes Eyes: Reports change in vision and other Details: Wavy line left eye lateral peripheral ; Denies blurry vision or diplopia ENT ENT ED: Denies ear pain, rhinorrhea or sore throat Cardiovascular Cardiovascular: Denies chest pain, orthopnea, palpitations or racing heartbeat Respiratory/Chest Respiratory/Chest: Denies cough, dyspnea or orthopnea Gastrointestinal Gastrointestinal: Denies abdominal pain, diarrhea, nausea or vomiting Genitourinary Genitourinary ED: Denies dysuria, hematuria or urinary frequency Musculoskeletal Musculoskeletal: Denies arthralgias or myalgias Integumentary Reports other Details: Mid to low back abrasions ; Denies abscess or rash Neurologic Neurologic: Reports headache(s) and other Details: Chronic left arm and leg weakness. Chronic left arm and leg numbness. Left facial and perioral numbness. Tongue not working (intermittent) causing slurred speech (not present currently) Psychiatric Psychiatric: Reports other Details: Visual hallucinations ; Denies anxiety, depression, suicidal ideation or suicidal thoughts Endocrine Endocrinology: Denies polydipsia, polyphagia or polyuria Allergic/Immunologic Allergic/Immunologic ED: Denies mouth swelling, tongue swelling or urticaria EXAM Physical Exam Const Vital Signs: 11/11/23 14:50 11/11/23 15:27 11/11/23 15:19 Temperature 97.1 F L Temperature Source Temporal Pulse Rate 69 68 Respiratory Rate 16 14 Blood Pressure 168/77 H 157/74 H Blood Pressure Mean 107 101 Pulse Ox 96 96 Oxygen Delivery Method Room Air Room Air Room Air 11/11/23 15:37 11/11/23 15:49 11/11/23 16:19 Temperature Temperature Source Pulse Rate 67 65 73 Respiratory Rate 13 17 14 Blood Pressure 182/77 H 158/95 H 182/77 H Blood Pressure Mean 112 116 112 Pulse Ox 97 99 97 Oxygen Delivery Method Room Air Room Air Room Air 11/11/23 16:30 11/11/23 17:22 11/11/23 15:54 Temperature 97.6 F L Temperature Source Pulse Rate 73 72 Respiratory Rate 15 16 16 Blood Pressure 176/100 H 190/88 H Blood Pressure Mean 125 122 Pulse Ox 96 98 Oxygen Delivery Method Room Air 11/11/23 16:20 11/11/23 17:00 11/11/23 18:00 Temperature Temperature Source Pulse Rate 72 71 Respiratory Rate 11 L 13 16 Blood Pressure 180/93 H 171/86 H Blood Pressure Mean 119 114 Pulse Ox 98 96 96 Oxygen Delivery Method Room Air 11/11/23 19:00 11/11/23 19:45 Temperature Temperature Source Pulse Rate 69 69 Respiratory Rate 16 16 Blood Pressure 158/85 H 189/91 H Blood Pressure Mean 109 123 Pulse Ox 97 97 Oxygen Delivery Method Room Air Room Air Positive well nourished and well developed General Appearance ED: well developed HEENT Reports normocephalic, head/scalp atraumatic and moist mucous membranes Eyes PERRL and EOMs intact bilaterally Neck no lymphadenopathy, supple and no JVD Resp normal respiratory effort and clear to auscultation bilaterally Cardio regular rate, regular rhythm and no murmurs GI normal to inspection, nondistended, normoactive bowel sounds and non-tender Palpation: soft Back/Spine no CVA tenderness and normal ROM Back/Spine Narrative: There are superficial abrasions to the mid to low back mostly on the right paraspinal region. No evidence of secondary infection Extremity Extremity Narrative: Normal adekbp-rf-pexd and pdud-fn-zafs exam General Extremety ED: Negative for edema General Extremity: Negative for edema Neuro oriented x3 and CN's II-XII intact bilaterally [place] Coma Scale: document GCS findings Spontaneous Obeys Commands Oriented 15 Sensorium / Orientation: alert Speech: speech normal Motor Exam: strength 5/5 throughout Psych mental status grossly normal Mood & Affect: Negative for depressed or tearful Skin no rashes or lesions noted and no wounds NIHSS NIHSS Initial: 1a Level of Consciousness: 0 1b LOC Questions (Score 2 if aphasic/stupor): 0 1c LOC Commands (Only score 1st attempt): 0 2 Best Gaze (If aphasic, use reflexive mvmts.): 0 3 Visual: 0 4 Facial Palsy: 0 5 Motor Arm Right (UN = amputation/fusion): 0 5 Motor Arm Left: 0 6 Motor Leg Right: 0 6 Motor Leg Left: 0 7 Limb ataxia (Only + if out of proportion): 0 8 Sensory (Aphasia/stupor=0 or 1, coma=2): 2 9 Best Language: 0 10 Dysarthria (mute, coma=2, intubated=UN): 0 11 Extinction and Inattention (only scored if +): 0 Total Score: 2 MDM MDM MDM Narrative Medical decision making narrative: Differential diagnosis includes intracranial hemorrhage/hematoma, acute stroke, dissection, metabolic derangement, psychologic pathology, cardiogenic dysfunction. Because the patient has had persistent left facial numbness since 2000 hours last night a stroke team was called. Noncontrasted head CT does not show intracranial hemorrhage or obvious acute stroke. I spoke with stroke neurology at [facility] Dr. Gaffney at 1552 hrs. CTA results were called to me at approximately 1601 hrs. I again spoke with [facility] stroke neurology at 1615 hrs. Basic blood work shows white count of 5.5 hemoglobin 12.3 platelet count of 246. PTT 49.2 and INR is 1.1. Sodium 138 potassium 3.2. Glucose of 155 liver enzymes are normal. Troponin 22. Urinalysis is normal. My independent interpretation of the chest x-ray is no acute process. At this point patient does not appear to be tPA candidate. Per [facility] neurology team the carotid dissection does not appear at this time need to be intervened upon and they would recommend a neurology consult in the morning. I will speak with the hospitalist regarding admission. I spoke with Dr. Robertson. He is uncomfortable keeping the patient here with the findings of the right carotid. I again spoke with [facility]. I am waiting on return information about possible transfer. I did have her hospitalist on duty ari speak with [facility] neurology. Patient will be an ED to ED transfer to [facility]. History & Record Review Discussion w/independent historian: Patient and Significant other Additional record(s) reviewed:: Prior inpatient record, Prior ED visit and Prior labs Lab Data Attestation: I reviewed the patient's lab results. Labs: Laboratory Results - last 24 hr 11/11/23 11/11/23 11/11/23 15:21 15:25 16:20 WBC 5.5 RBC 4.46 L Hgb 12.3 L Hct 38.1 L MCV 85.4 MCH 27.6 MCHC 32.3 RDW Std Deviation 45.2 H RDW Coeff of Maia 14.6 Plt Count 246 MPV 9.5 Immature Gran % (Auto) 0.200 Neut % (Auto) 67.8 Lymph % (Auto) 19.9 [place] % (Auto) 10.8 H Eos % (Auto) 0.9 Baso % (Auto) 0.4 Absolute Neuts (auto) 3.8 Absolute Lymphs (auto) 1.10 Nucleated RBC % 0 PT 13.7 INR 1.1 APTT 49.2 H Sodium 138 Potassium 3.2 L Chloride 99 Carbon Dioxide 32.0 Anion Gap 7 BUN 15 Creatinine 0.99 Estim Creat Clear Calc 69.55 Est GFR (MDRD) Af Amer 98 Est GFR (MDRD) Non-Af 81 BUN/Creatinine Ratio 15.2 Glucose 155 H Calcium 8.1 L Total Bilirubin 0.30 Direct Bilirubin 0.10 AST 29 ALT 29 Alkaline Phosphatase 94 Troponin I High Sens 22 Total Protein 6.9 Albumin 3.4 Globulin 3.5 Urine Color Yellow Urine Clarity Clear Urine pH 7.0 Ur Specific [place] 1.010 Urine Protein 15 H Urine Glucose (UA) Normal Urine Ketones Negative Urine Occult Blood Negative Urine Nitrite Negative Urine Bilirubin Negative Urine Urobilinogen Normal Ur Leukocyte Esterase Negative Urine RBC 0 SEEN Urine WBC 0 SEEN Ur Squamous Epith Cells 0 SEEN Urine Bacteria 0 SEEN Urine Mucus 0 SEEN POC Glucose 153 H Radiography Diagnostic Testing: Clinical Impression(s) from Imaging Studies Brain CT 11/11/23 15:19 IMPRESSION: There are no acute findings. Electronically Signed: Alexis Madrid MD at 15:34 EDT , ADDENDUM: 11/11/23 1542 IMPRESSION: There are no acute findings. N.B. : The above Results were Read Back by Alexis Madrid MD to Joao Britton DO, and understanding confirmed on 11/11/2023 15:35:05 (ET). Electronically Signed: Alexis Madrid MD at 15:34 EDT , Head/Neck CTA 11/11/23 15:20 IMPRESSION: There is mild atherosclerotic plaque formation of the origin of the right and left internal carotid artery with less than 50% cross sectional diameter stenosis. ALL ABOVE CRITERIA BY NASCET. There is a short dissection of the right common carotid bulb extending to the proximal right ICA and proximal right ECA. No stenosis. ALL ABOVE CRITERIA BY NASCET. Electronically Signed: Alexis Madrid MD at 16:00 EDT , ADDENDUM: 11/11/23 1610 IMPRESSION: There is mild atherosclerotic plaque formation of the origin of the right and left internal carotid artery with less than 50% cross sectional diameter stenosis. ALL ABOVE CRITERIA BY NASCET. There is a short dissection of the right common carotid bulb extending to the proximal right ICA and proximal right ECA. No stenosis. ALL ABOVE CRITERIA BY NASCET. N.B. : The above Results were Read Back by Alexis Madrid MD to Joao Britton DO, and understanding confirmed on 11/11/2023 16:03:39 (ET). Electronically Signed: Alexis Madrid MD at 16:00 EDT , ADDENDUM: 11/11/23 1611 IMPRESSION: undefined Chest X-Ray 11/11/23 15:55 IMPRESSION: There are no acute findings. Electronically Signed: Alexis Madrid MD at 16:17 EDT Reading Location ID and State: [facility] / [place] , Service support , EKG Initial EKG: Attestation: I personally reviewed and interpreted this EKG as follows: Comments: Normal sinus rhythm ventricular rate of [address] abnormalities noted anterolateral. These do appear new since March 2023. Management Discussion w/another healthcare provider: Hospitalist (Dr. Robertson), Record Producer ([facility] (Dr. Navarro)) and Radiologist (Dr. Márquez) Discharge Plan Triage Chief Complaint: Neuro S/Sx ED Provider: Joao Britton Dx/Rx/DC Orders Clinical Impression: Type 2 diabetes mellitus, Carotid artery dissection, Hallucination, visual, Left facial numbness, H/O coronary artery bypass surgery, HTN (hypertension), Acute hypokalemia Prescriptions: No Action gabapentin 300 mg capsule 300 mg PO DAILY fluticasone propionate [Flonase Allergy Relief] 50 mcg/actuation spray,suspension 1 spray intranasal DAILY PRN (Reason: allergies) Rx Instructions: administer into each nostril nitroglycerin 0.4 mg tablet, sublingual 0.4 mg sublingual Q5M PRN (Reason: chest pain) Qty: 25 3RF Rx Instructions: do not exceed 3 doses per episode aspirin 81 MG tablet,chewable 81 mg PO DAILY Patient Comments: heart health omeprazole 40 MG capsule,delayed release(DR/EC) 40 mg PO DAILY insulin lispro [Humalog KwikPen Insulin] 100 unit/mL insulin pen See Rx Instructions SC .COMPLEX Rx Instructions: Take 17 units each meal plus sliding scale up to 65 units daily Lubricant Eye (PG-PEG 400)(PF) 0.4-0.3 % dropperette 1 drp EACH EYE DAILY PRN (Reason: dry eye(s)) duloxetine 60 MG capsule,delayed release(DR/EC) 30 mg PO DAILY Qty: 30 1RF Patient Comments: antidepressant insulin glargine-yfgn [Semglee(insulin glarg-yfgn)Pen] 100 unit/mL (3 mL) insulin pen 50 unit subcut BID rosuvastatin 20 mg tablet 20 mg PO QHS Qty: 90 3RF carvedilol 6.25 mg tablet 6.25 mg PO BID Qty: 180 3RF Rx Instructions: must administer with a meal/food clopidogrel 75 mg tablet 75 mg PO DAILY Qty: 90 3RF Primary Care Provider: Kendy Modi Referrals: Kendy Modi MD [Primary Care Provider] - Disposition Disposition: Acute Care Hospital Discharge Location: [facility]
--- NOTE | 2023-11-11 15:29 | ED.RN ---
Pt has residual numbness on left arm from previous CVA, but states loss of sensation on left side of face is new. Pt states it has improved since onset of symptoms at 2000 last night.
[2023-11-11 15:41] LABS: Absolute Neutrophil Count 3.8 X10^3/uL (2.0-7.7); Basophil# 0.02 X10^3/uL; Basophil% 0.4 % (0-1); Eosinophil# 0.05 X10^3/uL; Eosinophils% 0.9 % (0-5); Hematocrit 38.1 % (40-54); Hemoglobin 12.3 g/dL (13.0-16.5); Lymphocyte % 19.9 % (19-41); Mean Corp Hgb Conc 32.3 g/dL (32-36); Mean Corpuscular Hgb 27.6 pg (27.0-32.0); Mean Corpuscular Volume 85.4 fL (80-94); Mean Platelet Vol. 9.5 fl (6.2-12.0); Monocyte% 10.8 % (0-10); NRBC Flagged by Analyzer 0 % (0-5); Neutrophil # 3.75 X10^3/uL (2.7-7.7); Neutrophil % 67.8 % (47-70); Platelet Count 246 K/mm3 (150-450); RBC Distribution Width CV 14.6 % (11.6-14.6); RBC Distribution Width SD 45.2 fl (35.1-43.9); Red Blood Count 4.46 M/mm3 (4.6-6.2); White Blood Count 5.5 K/mm3 (4.4-11.0)
[2023-11-11 15:48] LABS: Bedside Glucose 153 mg/dL (74-106)
[2023-11-11 15:51] LABS: International Normalized Ratio 1.1; Prothrombin Time (Protime)PT. 13.7 SECONDS (11.7-14.9)
[2023-11-11 15:52] LABS: Partial Thromboplast Time 49.2 Seconds (24.1-36.2)
--- NOTE | 2023-11-11 15:55 | RAD_ITS ---
STUDY: XR Chest 1 View 11/11/2023 3:54 PM REASON FOR EXAM: Male, 67 years old. Neuro deficit, acute, stroke suspected COMPARISON: None TECHNIQUE: XR Chest 1 View FINDINGS: There is no demonstrated pleural abnormality. There are multiple median sternotomy wires. Chronic appearing abnormality of the left shoulder. Normal heart size. Normal mediastinum. Normal ramses. Prominent appearing increased interstitial lung markings. Normal visualized pulmonary arteries. There is atherosclerotic calcification of the aortic arch with tortuosity. There are diffuse degenerative changes of the visualized thoracic spine. There is degenerative osteoarthritis of the bilateral shoulders. There are no acute findings of the upper abdomen. RAD/Chest 1 View IMPRESSION: There are no acute findings. Electronically Signed: Alexis Madrid MD at 16:17 EDT ,
[2023-11-11 16:01] LABS: Anion Gap 7 (5-15); BUN 15 mg/dL (7-18); BUN/Creat Ratio 15.2 RATIO (10-20); Calcium,Total 8.1 mg/dL (8.5-10.1); Chloride 99 mmol/L (98-107); Creatinine, Serum 0.99 mg/dL (0.70-1.30); EST Glomerular Filtration Rate 81 mL/min (>60); Est Glom Filt Rate - Afr Amer 98 mL/min (>60); Estimated Creatinine Clearance 69.55 ml/min; Glucose 155 mg/dL (74-106); Potassium 3.2 mmol/L (3.5-5.1); Sodium Level 138 mmol/L (136-145); Troponin-I HS 22 pg/mL (3.0-78.0)
[2023-11-11 16:17] LABS: AST(SGOT) 29 U/L (15-37); Alanine Aminotransfer ALT/SGPT 29 U/L (16-61); Albumin, Serum 3.4 g/dL (3.2-5.0); Alkaline Phosphatase 94 U/L (45-117); Globulin 3.5 g/dL (2.2-4.2); Protein, Total 6.9 g/dL (6.4-8.2)
[2023-11-11 16:44] LABS: Bacteria 0 SEEN /hpf (None Seen); Mucous, Urine 0 SEEN /hpf (<or=2+); Red Blood Cells-Urine 0 SEEN /hpf (0-5); Squamous Epithelial Cells - UA 0 SEEN /hpf (0-5); White Blood Cells 0 SEEN /hpf (0-5)
--- NOTE | 2023-11-11 16:46 | ED.RN ---
NIHSS dc'd per ED MD, only deficit is residual numbness from previous stroke, loss of sensation in left arm.
[2023-11-11 16:52] LABS: Color, Urine Yellow (Yellow); Glucose, Dipstick Normal (Normal); Ketone-Dipstick Negative (Negative); Leukocyte Esterase-Dipstick Negative /ul (Negative); Nitrite-Dipstick Negative (Negative); Occult Blood-Urine Negative /ul (Negative); Protein-Dipstick 15 mg/dl (Negative); Urine Bilirubin Dipstick Negative (Negative); Urine Clarity Clear (Clear); Urine Urobilinogen Normal (Normal)
[2023-11-11] MEDS: Potassium Chloride Oral Tablet 20 MEQ 40 MEQ PO (19:42)
[2023-11-12] VITALS: BP 178/98; PULSE 78; RESP 16; O2SAT 94
== END 2023-11-12 00:16 | disposition short-term general hospital (02) ==
PROVIDERS: Emergency Provider Emergency Medicine; PCP Family Medicine; Visit Provider Emergency Medicine
DX: I77.71 Dissection of carotid artery (principal); E11.51 Type 2 diabetes mellitus with diabetic peripheral angiopathy without gangrene; Z79.4 Long term (current) use of insulin; E11.40 Type 2 diabetes mellitus with diabetic neuropathy, unspecified; R44.3 Hallucinations, unspecified; E87.6 Hypokalemia; R51.9 Headache, unspecified; I10 Essential (primary) hypertension; R20.0 Anesthesia of skin; Z79.82 Long term (current) use of aspirin; Z79.02 Long term (current) use of 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/antiplatelets; Z79.899 Other long term (current) drug therapy; Z86.73 Personal history of transient ischemic attack (TIA), and cerebral infarction without residual deficits; Z95.1 Presence of aortocoronary bypass graft; Z95.5 Presence of coronary angioplasty implant and graft
CPT/HCPCS: 70450; 70496; 70498; 71045; 80048; 80076; 81001; 82962; 84484; 85025; 85610; 85730; 93005; 99285; Q9967

== ENCOUNTER 2023-11-29 11:26 | Emergency (ER) | payer BC, MEDICARE, OTHER, SELFPAY ==
[2023-11-29 11:27] VITALS: BP 161/74; PULSE 90; RESP 16; TEMP 37.2; O2SAT 95; BMI 23.8
--- NOTE | 2023-11-29 11:50 | RAD_ITS ---
STUDY: X-RAY - PELVIS AND RIGHT HIP REASON FOR EXAM: Male, 68 years old. Injury. TECHNIQUE: 3 views of the pelvis and right hip. COMPARISON: None. FINDINGS: There is a non-specific bowel gas pattern. There are atherosclerotic vascular calcifications of the pelvic and femoral arteries. Normal bilateral iliac wings, sacroiliac joints and visualized sacrum. Normal bilateral superior and inferior pubic rami. Normal pubic symphysis. Normal bilateral ischial tuberosities. There are osteoarthritic changes of the femoral heads bilaterally with marginal osteophyte formation. There is osteoarthritic spur formation of the acetabular rims bilaterally. There is moderate articular joint space narrowing of the hips bilaterally. There is no demonstrated acute fracture. RAD/HIP, UNI W/ Pelvis 2-3 Views IMPRESSION: Moderate degenerative arthrosis of the hip joints bilaterally. No demonstrated acute fracture. Electronically Signed: Michael Ford MD at 12:06 EDT ,
--- NOTE | 2023-11-29 11:53 | EX.ED.DYSGE1 ---
HPI History of Present Illness Chief Complaint: Lower Extremity Injury Detail of Chief Complaint: Right hip pain Informant: patient Narrative Narrative: Patient presents via EMS secondary to right hip pain. He was just discharged from a hospital in [place] yesterday and transported back to local [facility]. He states he was admitted with a TIA and a mild heart attack. He had a heart cath while he was there. He did not require any cardiac stents but he states he did get a stent in his neck. Patient states his right hip has been bothering him lately but after the squad ride back to [place] yesterday he had increased pain. Today he was in his lift chair when he leaned forward to pick something up off the floor, lost his balance and fell forward. He does report some increased pain to the right hip after his fall. He denies head or neck pain. 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 Cancer Cardiology follow-up encounter Carotid artery disease Colorectal cancer CPAP (continuous positive airway pressure) dependence CVA (cerebral vascular accident) Depression Diabetic neuropathy Dietary restriction Dyslipidemia Dysphagia Essential hypertension Gastric reflux GERD (gastroesophageal reflux disease) High cholesterol History of echocardiogram History of heart attack History of pain when walking History of stress test HTN (hypertension) Injury of back Injury of head and neck 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 Leg cramps Loss of hearing Non-smoker Obstructive sleep apnea Orthostatic hypotension ALEJANDRO (obstructive sleep apnea) Peripheral vascular occlusive disease Restless legs Restrictive lung disease Shortness of breath on exertion Syncope Type 2 diabetes mellitus Walker as ambulation aid Wears glasses Home Medications aspirin 81 mg chewable tablet 81 mg PO DAILY heart health 03/20/16 [History Last Taken 03/10/23] omeprazole 40 mg capsule,delayed release 40 mg PO DAILY gerd 01/09/20 [History Last Taken 03/10/23] fluticasone propionate 50 mcg/actuation nasal spray,suspension (Flonase Allergy Relief) 1 spray intranasal DAILY PRN allergies 12/17/20 [History Last Taken 09/22/21] gabapentin 300 mg capsule 300 mg PO DAILY neuropathy 12/17/20 [History Last Taken 03/10/23] insulin lispro 100 unit/mL subcutaneous pen (Humalog KwikPen (U-100) Insulin) See Rx Instructions subcut .COMPLEX diabetes 09/26/21 [History Last Taken 03/10/23] nitroglycerin 0.4 mg sublingual tablet 0.4 mg sublingual Q5M PRN chest pain #25 tabs 10/15/21 [Rx Last Taken Unknown] rosuvastatin 20 mg tablet 20 mg PO QHS cholesterol #90 tabs 02/13/23 [Rx Last Taken 03/10/23] peg 400-propylene glycol (PF) 0.4 %-0.3 % eye drops in a dropperette (Lubricant Eye (PG-PEG 400) (PF)) 1 drp EACH EYE DAILY PRN dry eye(s) 03/10/23 [History Last Taken Unknown] duloxetine 60 mg capsule,delayed release 30 mg (1/2 x 60 mg) PO DAILY depression #30 caps 03/12/23 [Rx Last Taken 03/10/23] carvedilol 6.25 mg tablet 6.25 mg PO BID #180 tabs 09/28/23 [Rx Last Taken Unknown] clopidogrel 75 mg tablet 75 mg PO DAILY blood thinner #90 tabs 10/10/23 [Rx Last Taken Unknown] insulin glargine-yfgn 100 unit/mL (3 mL) subcutaneous pen (Semglee (insulin glargine-yfgn) Pen) 50 unit subcut BID 11/11/23 [History Last Taken Unknown] Allergy/AdvReac Type Severity Reaction Status Date / Time No Known Allergies Allergy Verified 11/29/23 11:30 Family History Father CAD (coronary artery disease) Hypertension Cancer leukemia Diabetes Heart disease High cholesterol Mother CVA (cerebral vascular accident) Diabetes Breast cancer Brother Diabetes Surgical History Excision Max.Zygoma Face Tumor H/O coronary artery bypass surgery (05/30/08) History of bilateral cataract extraction History of coronary artery stent placement (01/02/15) History of eye surgery History of herniorrhaphy History of left heart catheterization (LHC) (~01/22/15) History of right and left heart catheterization (LHC) (~12/25/14) History of right-sided carotid endarterectomy History of tonsillectomy PTCA Left Anterior Tibial and Paroneal Artery Social History Smoking Status: Never smoker alcohol intake: never substance use type: does not use caffeine: Yes what type of physical activity do you participate in: none ROS ROS ED Constitutional Constitutional ED: Denies chills or fever(s) Eyes Eyes: Denies discharge from eye(s) ENT ENT ED: Denies discharge from eye(s), rhinorrhea or sore throat Cardiovascular Cardiovascular: Denies chest pain or palpitations Respiratory/Chest Respiratory/Chest: Denies cough or dyspnea Gastrointestinal Gastrointestinal: Denies abdominal pain, nausea or vomiting Musculoskeletal Musculoskeletal: Reports extremity pain; Denies back pain Integumentary Denies Abrasions or rash Neurologic Neurologic: Denies headache(s) or weakness Allergic/Immunologic Allergic/Immunologic ED: Denies lip swelling or urticaria EXAM Physical Exam Const Vital Signs: 11/29/23 11:27 Temperature 99.0 F Temperature Source Oral Pulse Rate 90 Respiratory Rate 16 Blood Pressure 161/74 H Blood Pressure Mean 103 Pulse Ox 95 Oxygen Delivery Method Room Air Positive well nourished and well developed General Appearance ED: well developed HEENT Reports moist mucous membranes HEENT Narrative: Head is atraumatic Eyes EOMs intact bilaterally Chest Wall inspection of chest normal and palpation of chest normal Resp normal respiratory effort and clear to auscultation bilaterally Cardio regular rate and regular rhythm GI non-tender Palpation: soft Extremity Extremity Narrative: Mild tenderness of the greater trochanter of the right hip. No abrasions or ecchymosis. No obvious deformity. Good distal pulses. Neuro oriented x3 Psych mental status grossly normal Skin no rashes or lesions noted MDM MDM MDM Narrative Medical decision making narrative: Right hip x-ray with pelvis obtained to evaluate for potential fracture. Radiography Diagnostic Testing: Clinical Impression(s) from Imaging Studies Hip/Pelvis X-Ray 11/29/23 11:50 IMPRESSION: Moderate degenerative arthrosis of the hip joints bilaterally. No demonstrated acute fracture. Electronically Signed: Michael Ford MD at 12:06 EDT Reading Location ID and State: [address] [place] [address] , Service support , Treatment and Re-Evaluation :: Pelvis and right hip x-rays per my interpretation reveal arthritic changes with coronary artery disease. No acute fracture noted. Radiology interpretation reviewed and agrees. Test results discussed with the patient. He is reassured with this and is comfortable with discharge back to his [facility]. Discharge Plan Triage Chief Complaint: Lower Extremity Injury ED Provider: Citlali Zurita Dx/Rx/DC Orders Clinical Impression: Contusion of hip, Fall Instructions: ED Hip Contusion Prescriptions: No Action gabapentin 300 mg capsule 300 mg PO DAILY fluticasone propionate [Flonase Allergy Relief] 50 mcg/actuation spray,suspension 1 spray intranasal DAILY PRN (Reason: allergies) Rx Instructions: administer into each nostril nitroglycerin 0.4 mg tablet, sublingual 0.4 mg sublingual Q5M PRN (Reason: chest pain) Qty: 25 3RF Rx Instructions: do not exceed 3 doses per episode aspirin 81 MG tablet,chewable 81 mg PO DAILY Patient Comments: heart health omeprazole 40 MG capsule,delayed release(DR/EC) 40 mg PO DAILY insulin lispro [Humalog KwikPen Insulin] 100 unit/mL insulin pen See Rx Instructions SC .COMPLEX Rx Instructions: Take 17 units each meal plus sliding scale up to 65 units daily Lubricant Eye (PG-PEG 400)(PF) 0.4-0.3 % dropperette 1 drp EACH EYE DAILY PRN (Reason: dry eye(s)) duloxetine 60 MG capsule,delayed release(DR/EC) 30 mg PO DAILY Qty: 30 1RF Patient Comments: antidepressant insulin glargine-yfgn [Semglee(insulin glarg-yfgn)Pen] 100 unit/mL (3 mL) insulin pen 50 unit subcut BID rosuvastatin 20 mg tablet 20 mg PO QHS Qty: 90 3RF carvedilol 6.25 mg tablet 6.25 mg PO BID Qty: 180 3RF Rx Instructions: must administer with a meal/food clopidogrel 75 mg tablet 75 mg PO DAILY Qty: 90 3RF Primary Care Provider: Kendy Modi Referrals: Kendy Modi MD [Primary Care Provider] - 1 Week if not improving Disposition Disposition: Home, Self Care
--- NOTE | 2023-11-29 13:52 | CT_ITS ---
STUDY: CT BRAIN WITHOUT CONTRAST REASON FOR EXAM: Male, 68 years old. Head injury. RADIATION DOSAGE (If Supplied By Facility): CTDIvol = ( 47.06 ) mGy, DLP = ( 925.62 ) mGycm TECHNIQUE: Transaxial CT imaging of the brain was performed without administration of intravenous contrast material. Individualized dose optimization techniques were used for this CT. COMPARISON: Comparison is made with prior study November 11, 2023. FINDINGS: Normal soft tissue structures. Normal calvarium. There is mild cerebral atrophy with widening of the extra-axial spaces and ventricular dilatation. There are areas of decreased attenuation within the white matter tracts of the supratentorial brain, consistent with microvascular disease changes. Stable old lacunar infarcts in the basal ganglia and right thalamus. Normal brainstem. Focal encephalomalacia is seen in the right cerebellar hemisphere posteriorly with old infarction. There is no intracranial hemorrhage. There are no findings of an acute ischemic infarction. Normal visualized paranasal sinuses. CT/Brain/Head without Contrast IMPRESSION: Chronic involutional changes of the brain. Stable examination. Electronically Signed: Navdeep Gonzales MD at 14:21 EDT ,
--- NOTE | 2023-11-29 14:09 | NURSING ---
[facility] CALLED [facility], ETA IS 30 MIN
[2023-11-29 14:16] VITALS: BP 156/88; PULSE 88; RESP 18; TEMP 36.8; O2SAT 97
== END 2023-11-29 14:50 | disposition skilled nursing facility (03) ==
PROVIDERS: Emergency Provider Emergency Medicine; PCP Family Medicine; Visit Provider Emergency Medicine
DX: S70.01XA Contusion of right hip, initial encounter (principal); Z79.4 Long term (current) use of insulin; E11.40 Type 2 diabetes mellitus with diabetic neuropathy, unspecified; W17.89XA Other fall from one level to another, initial encounter; I25.708 Atherosclerosis of coronary artery bypass graft(s), unspecified, with other forms of angina pectoris; I10 Essential (primary) hypertension; E78.00 Pure hypercholesterolemia, unspecified; Z79.82 Long term (current) use of aspirin; Z79.01 Long term (current) use of anticoagulants; Z79.02 Long term (current) use of 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/antiplatelets; Z79.899 Other long term (current) drug therapy; Z95.1 Presence of aortocoronary bypass graft; Z95.5 Presence of coronary angioplasty implant and graft
CPT/HCPCS: 70450; 73502; 99282

== ENCOUNTER 2023-12-01 16:38 | Inpatient (IN) | payer BC, MEDICARE, OTHER, SELFPAY ==
[2023-12-01] VITALS (32 sets, daily range): BP systolic 100–155; BP diastolic 48–69; PULSE 69–77; RESP 10–18; TEMP 36.6–36.8; O2SAT 86–95; BMI 21.4
--- NOTE | 2023-12-01 17:15 | CT_ITS ---
We are attempting to reach an attending provider to discuss findings. An addendum with communication details will be sent when the communication is complete. EXAM: CT ABDOMEN AND PELVIS WITH INTRAVENOUS CONTRAST CLINICAL INDICATION: abdominal pain TECHNIQUE: Helically acquired images were obtained of the abdomen and pelvis with intravenous contrast. This CT exam was performed using one or more of the following dose reduction techniques: automated exposure control, adjustment of the mA and/or kV according to patient size, and/or use of iterative reconstruction technique. CONTRAST: IV 100mL [id number] COMPARISON: None. FINDINGS: LOWER THORAX: Mild bibasilar pleuroparenchymal scarring. No cardiomegaly. No significant pericardial effusion. ABDOMEN: LIVER: Diffuse fatty infiltration of the liver. No focal lesion. GALLBLADDER AND BILE DUCTS: Multiple small dependent stones in the gallbladder. No gallbladder distention or wall edema. No intra- or extrahepatic biliary ductal dilation. PANCREAS: Unremarkable. No focal cystic or solid mass. SPLEEN: Unremarkable. Normal size without focal cystic or solid mass. ADRENALS: Unremarkable. No nodules. KIDNEYS AND URETERS: Unremarkable. Normal renal size and position. No hydronephrosis. STOMACH AND BOWEL: Moderate to high-grade midgut small bowel obstruction with transition in the distal jejunum or proximal ileum. No definite obstructing lesion. Left lower quadrant colostomy. No focal inflammatory change. PELVIS: APPENDIX: No evidence of acute appendicitis. BLADDER: Unremarkable. REPRODUCTIVE: Unremarkable as visualized. No mass. ABDOMEN and PELVIS: INTRAPERITONEAL SPACE: Unremarkable. No ascites or other fluid collection. No free air. BONES/JOINTS: Unremarkable. No suspicious lytic or blastic abnormality. SOFT TISSUES: Unremarkable. No discrete abdominal or pelvic wall hernia. VASCULATURE: Unremarkable. Abdominal aorta is normal in caliber. LYMPH NODES: Unremarkable. No enlarged lymph nodes. CT/Abdomen/Pelvis W IV Cont ONLY IMPRESSION: 1. Moderate to high-grade small bowel obstruction, possibly due to adhesions. 2. Cholelithiasis. 3. Hepatic steatosis. Electronically Signed: Alta Lemus MD at 18:41 EDT Reading Location ID and State: [id number] / Tel , Service support ,
--- NOTE | 2023-12-01 17:18 | EDS_ITS ---
HPI <SHUBHAM Villa - Last Filed: 12/01/23 21:08> History of Present Illness Chief Complaint: Abd Pain Narrative Narrative: Patient is a 68-year-old male with history of 2 CVA with left-sided hemiplegia, diabetes, on Eliquis, history of rectal cancer who has ileostomy for 3 years presenting to the [facility] with right lower quadrant abdominal pain. Patient was seen here for mechanical fall diagnosed with hip contusion on November 29, 2023. Patient does have some bruising looks old to the right lower abdomen where he states he is hurting. Denies any fever chills nausea or vomiting. He is currently at a rehab facility. He denies any blood in his stoma. 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 Cancer Cardiology follow-up encounter Carotid artery disease Colorectal cancer CPAP (continuous positive airway pressure) dependence CVA (cerebral vascular accident) Depression Diabetic neuropathy Dietary restriction Dyslipidemia Dysphagia Essential hypertension Gastric reflux GERD (gastroesophageal reflux disease) High cholesterol History of echocardiogram History of heart attack History of pain when walking History of stress test HTN (hypertension) Injury of back Injury of head and neck 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 Leg cramps Loss of hearing Non-smoker Obstructive sleep apnea Orthostatic hypotension ALEJANDRO (obstructive sleep apnea) Peripheral vascular occlusive disease Restless legs Restrictive lung disease Shortness of breath on exertion Syncope Type 2 diabetes mellitus Walker as ambulation aid Wears glasses Home Medications aspirin 81 mg chewable tablet 81 mg PO DAILY heart health 03/20/16 [History Last Taken 03/10/23] omeprazole 40 mg capsule,delayed release 40 mg PO DAILY gerd 01/09/20 [History Last Taken 03/10/23] fluticasone propionate 50 mcg/actuation nasal spray,suspension (Flonase Allergy Relief) 1 spray intranasal DAILY PRN allergies 12/17/20 [History Last Taken 09/22/21] gabapentin 300 mg capsule 300 mg PO DAILY neuropathy 12/17/20 [History Last Taken 03/10/23] insulin lispro 100 unit/mL subcutaneous pen (Humalog KwikPen (U-100) Insulin) See Rx Instructions subcut .COMPLEX diabetes 09/26/21 [History Last Taken 03/10/23] nitroglycerin 0.4 mg sublingual tablet 0.4 mg sublingual Q5M PRN chest pain #25 tabs 10/15/21 [Rx Last Taken Unknown] rosuvastatin 20 mg tablet 20 mg PO QHS cholesterol #90 tabs 02/13/23 [Rx Last Taken 03/10/23] peg 400-propylene glycol (PF) 0.4 %-0.3 % eye drops in a dropperette (Lubricant Eye (PG-PEG 400) (PF)) 1 drp EACH EYE DAILY PRN dry eye(s) 03/10/23 [History Last Taken Unknown] duloxetine 60 mg capsule,delayed release 30 mg (1/2 x 60 mg) PO DAILY depression #30 caps 03/12/23 [Rx Last Taken 03/10/23] carvedilol 6.25 mg tablet 6.25 mg PO BID #180 tabs 09/28/23 [Rx Last Taken Unknown] clopidogrel 75 mg tablet 75 mg PO DAILY blood thinner #90 tabs 10/10/23 [Rx Last Taken Unknown] insulin glargine-yfgn 100 unit/mL (3 mL) subcutaneous pen (Semglee (insulin glargine-yfgn) Pen) 50 unit subcut BID 11/11/23 [History Last Taken Unknown] Allergy/AdvReac Type Severity Reaction Status Date / Time No Known Allergies Allergy Verified 11/29/23 11:30 Family History Father CAD (coronary artery disease) Hypertension Cancer leukemia Diabetes Heart disease High cholesterol Mother CVA (cerebral vascular accident) Diabetes Breast cancer Brother Diabetes Surgical History Excision Max.Zygoma Face Tumor H/O coronary artery bypass surgery (05/30/08) History of bilateral cataract extraction History of coronary artery stent placement (01/02/15) History of eye surgery History of herniorrhaphy History of left heart catheterization (LHC) (~01/22/15) History of right and left heart catheterization (LHC) (~12/25/14) History of right-sided carotid endarterectomy History of tonsillectomy PTCA Left Anterior Tibial and Paroneal Artery Social History Smoking Status: Never smoker alcohol intake: never substance use type: does not use caffeine: Yes what type of physical activity do you participate in: none ROS <SHUBHAM Villa - Last Filed: 12/01/23 21:08> ROS ED ROS Narrative Constitutional: Negative for fever, chills, weight loss, weakness Eyes: Negative for vision loss, vision change, double vision ENT: Negative for any sore throat, ear pain, congestion Cardiovascular: Negative for any chest pain, tightness, palpitations Respiratory: Negative for any cough, sputum production, hemoptysis, dyspnea, dyspnea on exertion, orthopnea Gastrointestinal: Negative for any nausea, vomiting, diarrhea, constipation, blood in stool, blood in vomit. Positive for lower abdominal pain, right lower quadrant : Negative for any urinary frequency, dysuria, retention, blood in urine Muscle skeletal: Negative for any neck pain, back pain Neurological: Negative for any headache, syncope, dizziness Skin: Negative for any rashes, itching, abrasions, lacerations Psychiatric: Negative for any depression, anxiety, stress, suicidal ideation, homicidal ideation Hematologic: Negative for any excessive bruising, easy bleeding EXAM <SHUBHAM Villa - Last Filed: 12/01/23 21:08> Physical Exam Narrative Exam Narrative: Vital signs reviewed. Patient is alert and orient x 4. Patient is acting appropriate. HEET: Head normocephalic atraumatic, TMs clear bilaterally. Posterior pharynx is clear, moist mucous membranes. Nares clear bilaterally. Neck: Supple with no lymphadenopathy or tenderness. No signs of meningismus. Patient does have a well-healing surgical incision to the right carotid area just above the clavicle where he had stenting completed of the carotid Cardiac: Regular rate and rhythm no murmurs gallops or rubs, equal peripheral pulses bilaterally. Respiratory: Lungs clear to auscultation bilaterally. No chest tenderness. Abdomen: Soft, tenderness to the right lower quadrant, there is some ecchymosis that is light-colored around the area where he hurts. Patient's stoma does produce stool that is darker brown. No alejandro red blood. Active bowel sounds. Nondistended. No abdominal bruit or pulsatile masses. No hepatosplenomegaly Extremities: No peripheral edema, no signs of gross trauma or deformity. Active full range of motion of all extremities. Neuro: Cranial nerves II through XII intact, no focal neurological deficits. Skin: Clean dry and intact with no rash, purpura, petechiae, vesicles or pustules. Backs/flank: No CVA tenderness, no midline spinal tenderness, no deformity. Psych: Normal mood and affect. No SI, HI or acute psychosis. Const Vital Signs: 12/01/23 16:39 12/01/23 16:53 12/01/23 18:19 Temperature 98 F 98.2 F Temperature Source Temporal Oral Pulse Rate 77 77 72 Respiratory Rate 18 18 16 Blood Pressure 111/60 106/58 L 138/63 H Blood Pressure Mean 77 74 88 Pulse Ox 93 91 93 Oxygen Delivery Method Room Air Room Air Room Air <Dr. Roberto Lockhart DO - Last Filed: 12/01/23 22:00> Physical Exam Const Vital Signs: 12/01/23 16:39 12/01/23 16:53 12/01/23 18:19 Temperature 98 F 98.2 F Temperature Source Temporal Oral Pulse Rate 77 77 72 Respiratory Rate 18 18 16 Blood Pressure 111/60 106/58 L 138/63 H Blood Pressure Mean 77 74 88 Pulse Ox 93 91 93 Oxygen Delivery Method Room Air Room Air Room Air [facility] <SHUBHAM Villa - Last Filed: 12/01/23 21:08> [facility] Lab Data Labs: Laboratory Results - last 24 hr 12/01/23 12/01/23 17:00 18:30 WBC 15.8 H RBC 3.51 L Hgb 9.8 L Hct 30.6 L MCV 87.2 MCH 27.9 MCHC 32.0 RDW Std Deviation 50.8 H RDW Coeff of Maia 15.9 H Plt Count 350 MPV 10.5 Immature Gran % (Auto) 0.500 Neut % (Auto) 87.6 H Lymph % (Auto) 4.7 L [place] % (Auto) 6.8 Eos % (Auto) 0.1 Baso % (Auto) 0.3 Absolute Neuts (auto) 13.8 H Absolute Lymphs (auto) 0.74 L Nucleated RBC % 0.1 PT 25.0 H INR 2.3 Sodium 133 L Potassium 4.2 Chloride 99 Carbon Dioxide 29.0 Anion Gap 5 BUN 48 H Creatinine 1.30 Estim Creat Clear Calc 47.55 Est GFR (MDRD) Af Amer 71 Est GFR (MDRD) Non-Af 59 L BUN/Creatinine Ratio 36.9 H Glucose 233 H Calcium 9.1 Total Bilirubin 0.60 AST 268 H ALT 295 H Alkaline Phosphatase 101 Total Protein 7.0 Albumin 2.4 L Globulin 4.6 H Albumin/Globulin Ratio 0.5 L Lipase 21 Urine Color Yellow Urine Clarity Clear Urine pH 5.0 Ur Specific [place] 1.010 Urine Protein 15 H Urine Glucose (UA) Normal Urine Ketones Negative Urine Occult Blood 10 H Urine Nitrite Negative Urine Bilirubin Negative Urine Urobilinogen Normal Ur Leukocyte Esterase Negative Urine RBC 0 SEEN Urine WBC 0 SEEN Ur Squamous Epith Cells 0 SEEN Urine Bacteria 0 SEEN Urine Mucus 0 SEEN Radiography Diagnostic Testing: Clinical Impression(s) from Imaging Studies Abdomen/Pelvis CT 12/01/23 17:15 IMPRESSION: 1. Moderate to high-grade small bowel obstruction, possibly due to adhesions. 2. Cholelithiasis. 3. Hepatic steatosis. Electronically Signed: Alta Lemus MD at 18:41 EDT Reading Location ID and State: [place]anne Cagle MD Tel , Service support , ADDENDUM: 12/01/23 1903 IMPRESSION: 1. Moderate to high-grade small bowel obstruction, possibly due to adhesions. 2. Cholelithiasis. 3. Hepatic steatosis. N.B. : Dwayne Marshall NP, confirmed on 12/01/2023 18:56:12 (ET) that the referring physician received the results and does not require a verbal communication. Electronically Signed: Alta Lemus MD at 18:41 EDT Reading Location ID and State: [place] / Tel , Service support , KUB X-Ray 12/01/23 19:50 IMPRESSION: NG tube tip projecting cephalad over the stomach fundus. Minimally prominent air-filled small bowel loops midabdomen. Consider upright or crosstable lateral views to assess for air-fluid levels if clinically concerned. No appreciable free air in this limited assessment. Electronically Signed: Etienne Whyte DO at 21:06 EDT , Treatment and Re-Evaluation :: Differential diagnosis includes however is not limited to: Pneumoperitoneum, appendicitis, bowel obstruction, diverticulitis, muscle strain Patient appears to be in no obvious respiratory distress, vital signs are stable, patient appears nontoxic. Presenting to the emerged part with right lower quadrant abdominal pain. Patient will receive a CT scan of the abdomen pelvis with IV contrast, patient will receive some basic laboratory values including a PT/INR. Patient will be reevaluated Patient's CBC shows a leukocytosis white blood count of 15.8, hemoglobin 9.8, this appears to be chronic. Patient's PT was 25.0 with an INR 2.3. Patient's chemistries show a glucose of 233, patient's AST is 268 with an ALT of 295, this is elevated from November 28 when the AST was 18 and ALT was 21 lipase was negative. Patient's urinalysis was negative for any infection. Patient CT scan of the abdomen pelvis shows a moderate to high-grade small bowel obstruction possibly due to adhesions. Cholelithiasis, hepatic steatosis. At this time, patient did have a ileostomy placed in 2016 by a physician in [facility]. I will reach out to surgery. I did speak with surgery, the patient is slightly complicated secondary to being on multiple blood thinners, there is concern because of the recent surgery from a carotid artery stent the patient could have difficulty bleeding during surgery. It was surgery's recommendation to try and transfer to [facility] where he received a ileostomy. Patient will have a NG tube placed. I was able to speak with Dr. Chin, general surgery at [facility] she will accept the patient. Patient was given NG tube, all CT images and x-ray images will be transported with the patient. Patient made aware that he will be transferred. Currently waiting on a bed for transport. Patient remains stable, <Dr. Roberto Lockhart DO - Last Filed: 12/01/23 22:00> [facility] Lab Data Labs: Laboratory Results - last 24 hr 12/01/23 12/01/23 17:00 18:30 WBC 15.8 H RBC 3.51 L Hgb 9.8 L Hct 30.6 L MCV 87.2 MCH 27.9 MCHC 32.0 RDW Std Deviation 50.8 H RDW Coeff of Maia 15.9 H Plt Count 350 MPV 10.5 Immature Gran % (Auto) 0.500 Neut % (Auto) 87.6 H Lymph % (Auto) 4.7 L [place] % (Auto) 6.8 Eos % (Auto) 0.1 Baso % (Auto) 0.3 Absolute Neuts (auto) 13.8 H Absolute Lymphs (auto) 0.74 L Nucleated RBC % 0.1 PT 25.0 H INR 2.3 Sodium 133 L Potassium 4.2 Chloride 99 Carbon Dioxide 29.0 Anion Gap 5 BUN 48 H Creatinine 1.30 Estim Creat Clear Calc 47.55 Est GFR (MDRD) Af Amer 71 Est GFR (MDRD) Non-Af 59 L BUN/Creatinine Ratio 36.9 H Glucose 233 H Calcium 9.1 Total Bilirubin 0.60 AST 268 H ALT 295 H Alkaline Phosphatase 101 Total Protein 7.0 Albumin 2.4 L Globulin 4.6 H Albumin/Globulin Ratio 0.5 L Lipase 21 Urine Color Yellow Urine Clarity Clear Urine pH 5.0 Ur Specific [place] 1.010 Urine Protein 15 H Urine Glucose (UA) Normal Urine Ketones Negative Urine Occult Blood 10 H Urine Nitrite Negative Urine Bilirubin Negative Urine Urobilinogen Normal Ur Leukocyte Esterase Negative Urine RBC 0 SEEN Urine WBC 0 SEEN Ur Squamous Epith Cells 0 SEEN Urine Bacteria 0 SEEN Urine Mucus 0 SEEN Radiography Diagnostic Testing: Clinical Impression(s) from Imaging Studies Abdomen/Pelvis CT 12/01/23 17:15 IMPRESSION: 1. Moderate to high-grade small bowel obstruction, possibly due to adhesions. 2. Cholelithiasis. 3. Hepatic steatosis. Electronically Signed: Alta Lemus MD at 18:41 EDT Reading Location ID and State: [id number] / Tel , Service support , ADDENDUM: 12/01/23 7212 IMPRESSION: 1. Moderate to high-grade small bowel obstruction, possibly due to adhesions. 2. Cholelithiasis. 3. Hepatic steatosis. N.B. : Dwayne Marshall NP, confirmed on 12/01/2023 18:56:12 (ET) that the referring physician received the results and does not require a verbal communication. Electronically Signed: Alta Lemus MD at 18:41 EDT , KUB X-Ray 12/01/23 19:50 IMPRESSION: NG tube tip projecting cephalad over the stomach fundus. Minimally prominent air-filled small bowel loops midabdomen. Consider upright or crosstable lateral views to assess for air-fluid levels if clinically concerned. No appreciable free air in this limited assessment. Electronically Signed: Etienne Whyte DO at 21:06 EDT , Treatment and Re-Evaluation :: Differential diagnosis includes however is not limited to: Pneumoperitoneum, appendicitis, bowel obstruction, diverticulitis, muscle strain Patient appears to be in no obvious respiratory distress, vital signs are stable, patient appears nontoxic. Presenting to the emerged part with right lower quadrant abdominal pain. Patient will receive a CT scan of the abdomen pelvis with IV contrast, patient will receive some basic laboratory values including a PT/INR. Patient will be reevaluated Patient's CBC shows a leukocytosis white blood count of 15.8, hemoglobin 9.8, this appears to be chronic. Patient's PT was 25.0 with an INR 2.3. Patient's chemistries show a glucose of 233, patient's AST is 268 with an ALT of 295, this is elevated from November 28 when the AST was 18 and ALT was 21 lipase was negative. Patient's urinalysis was negative for any infection. Patient CT scan of the abdomen pelvis shows a moderate to high-grade small bowel obstruction possibly due to adhesions. Cholelithiasis, hepatic steatosis. At this time, patient did have a ileostomy placed in 2016 by a physician in [facility]. I will reach out to surgery. I did speak with surgery, the patient is slightly complicated secondary to being on multiple blood thinners, there is concern because of the recent surgery from a carotid artery stent the patient could have difficulty bleeding during surgery. It was surgery's recommendation to try and transfer to [facility] where he received a ileostomy. Patient will have a NG tube placed. I was able to speak with Dr. Chin, general surgery at [facility] she will accept the patient. Patient was given NG tube, all CT images and x-ray images will be transported with the patient. Patient made aware that he will be transferred. Currently waiting on a bed for transport. Patient remains stable, ED attending note: I evaluated the patient in conjunction with the ADRIÁN. I agree with his/her statements and above findings. I have personally performed a face to face assessment of the patient and have reviewed the ADRIÁN Note. I performed a substantive portion of the visit including all aspects of the following. I personally saw the patient performed chart review, physical exam, reviewed labs, imaging (if obtained), and formulated a treatment and management plan. Discharge Plan Triage Chief Complaint: Abd Pain ED Midlevel Provider: Dwayne Marshall ED Provider: Roberto Lockhart Dx/Rx/DC Orders Prescriptions: No Action gabapentin 300 mg capsule 300 mg PO DAILY fluticasone propionate [Flonase Allergy Relief] 50 mcg/actuation spray,suspension 1 spray intranasal DAILY PRN (Reason: allergies) Rx Instructions: administer into each nostril nitroglycerin 0.4 mg tablet, sublingual 0.4 mg sublingual Q5M PRN (Reason: chest pain) Qty: 25 3RF Rx Instructions: do not exceed 3 doses per episode aspirin 81 MG tablet,chewable 81 mg PO DAILY Patient Comments: heart health omeprazole 40 MG capsule,delayed release(DR/EC) 40 mg PO DAILY insulin lispro [Humalog KwikPen Insulin] 100 unit/mL insulin pen See Rx Instructions SC .COMPLEX Rx Instructions: Take 17 units each meal plus sliding scale up to 65 units daily Lubricant Eye (PG-PEG 400)(PF) 0.4-0.3 % dropperette 1 drp EACH EYE DAILY PRN (Reason: dry eye(s)) duloxetine 60 MG capsule,delayed release(DR/EC) 30 mg PO DAILY Qty: 30 1RF Patient Comments: antidepressant insulin glargine-yfgn [Semglee(insulin glarg-yfgn)Pen] 100 unit/mL (3 mL) insulin pen 50 unit subcut BID rosuvastatin 20 mg tablet 20 mg PO QHS Qty: 90 3RF carvedilol 6.25 mg tablet 6.25 mg PO BID Qty: 180 3RF Rx Instructions: must administer with a meal/food clopidogrel 75 mg tablet 75 mg PO DAILY Qty: 90 3RF Primary Care Provider: Kendy Modi Referrals: Kendy Modi MD [Primary Care Provider] -
[2023-12-01 17:28] LABS: Absolute Lymphocyte Count 0.74 X10^3/uL (0.83-4.51); Absolute Neutrophil Count 13.8 X10^3/uL (2.0-7.7); Basophil# 0.04 X10^3/uL; Basophil% 0.3 % (0-1); Eosinophil# 0.01 X10^3/uL; Eosinophils% 0.1 % (0-5); Hematocrit 30.6 % (40-54); Hemoglobin 9.8 g/dL (13.0-16.5); Lymphocyte # 0.74 X10^3/ul (0.83-4.51); Lymphocyte % 4.7 % (19-41); Mean Corpuscular Hgb 27.9 pg (27.0-32.0); Mean Corpuscular Volume 87.2 fL (80-94); Mean Platelet Vol. 10.5 fl (6.2-12.0); Monocyte# 1.07 X10^3/uL; Monocyte% 6.8 % (0-10); NRBC Flagged by Analyzer 0.1 % (0-5); Neutrophil # 13.83 X10^3/uL (2.7-7.7); Neutrophil % 87.6 % (47-70); Platelet Count 350 K/mm3 (150-450); RBC Distribution Width CV 15.9 % (11.6-14.6); RBC Distribution Width SD 50.8 fl (35.1-43.9); Red Blood Count 3.51 M/mm3 (4.6-6.2); White Blood Count 15.8 K/mm3 (4.4-11.0)
[2023-12-01 17:34] LABS: ALB/GLOB Ratio 0.5 RATIO (0.9-2.4); AST(SGOT) 268 U/L (15-37); Alanine Aminotransfer ALT/SGPT 295 U/L (16-61); Albumin, Serum 2.4 g/dL (3.2-5.0); Alkaline Phosphatase 101 U/L (45-117); Anion Gap 5 (5-15); BUN 48 mg/dL (7-18); BUN/Creat Ratio 36.9 RATIO (10-20); Calcium,Total 9.1 mg/dL (8.5-10.1); Chloride 99 mmol/L (98-107); EST Glomerular Filtration Rate 59 mL/min (>60); Est Glom Filt Rate - Afr Amer 71 mL/min (>60); Estimated Creatinine Clearance 47.55 ml/min; Globulin 4.6 g/dL (2.2-4.2); Glucose 233 mg/dL (74-106); Lipase 21 U/L (13-75); Potassium 4.2 mmol/L (3.5-5.1); Sodium Level 133 mmol/L (136-145)
[2023-12-01 17:38] LABS: International Normalized Ratio 2.3
[2023-12-01] MEDS: Ondansetron 4 MG/2 ML Vial IV ×2 (17:43→19:18)
[2023-12-01] MEDS: Morphine 4 MG/ML Syringe IV ×2 (17:45→19:18)
[2023-12-01 18:38] LABS: Bacteria 0 SEEN /hpf (None Seen); Mucous, Urine 0 SEEN /hpf (<or=2+); Red Blood Cells-Urine 0 SEEN /hpf (0-5); Squamous Epithelial Cells - UA 0 SEEN /hpf (0-5); White Blood Cells 0 SEEN /hpf (0-5)
[2023-12-01 18:41] LABS: Color, Urine Yellow (Yellow); Glucose, Dipstick Normal (Normal); Ketone-Dipstick Negative (Negative); Leukocyte Esterase-Dipstick Negative /ul (Negative); Nitrite-Dipstick Negative (Negative); Occult Blood-Urine 10 /ul (Negative); Protein-Dipstick 15 mg/dl (Negative); Urine Bilirubin Dipstick Negative (Negative); Urine Clarity Clear (Clear); Urine Urobilinogen Normal (Normal)
[2023-12-01] MEDS: Oxymetazoline 0.05% 1 SPRAY SPRAY.BTL 2 SPRAY NASAL (19:19)
--- NOTE | 2023-12-01 19:50 | RAD_ITS ---
INDICATION: NG tube placement -- KUB with both diaphragms for NG/OG Verification EXAMINATION/TECHNIQUE: X-RAY - XR Abdomen 1 View COMPARISON: CT abdomen and pelvis December 01, 2023. FINDINGS: Enteric tube follows the expected course of the esophagus with the side port below the left hemidiaphragm. Tube tip projects cephalad and to the lateral left side of the patient. BOWEL GAS PATTERN: Several mildly prominent air-filled bowel loops seen in the mid abdomen without definite pathological distention. Consider upright imaging to assess for air-fluid levels is clinically concerned. FREE AIR: No appreciable free air. Upright imaging would increase sensitivity. ORGANOMEGALY: None. CALCIFICATIONS: Surgical clips right upper quadrant and dense vascular calcifications splenic artery. At least moderate calcifications involving the right splenic arteries. LOWER CHEST: Bibasilar atelectasis without definite consolidation. No pleural effusion or pneumothorax. Note of surgical clips along the right lateral heart margin. There are intact sternotomy wires. BONES AND SOFT TISSUES: No acute pathology. RAD/Abdomen Single View (Portable) IMPRESSION: NG tube tip projecting cephalad over the stomach fundus. Minimally prominent air-filled small bowel loops midabdomen. Consider upright or crosstable lateral views to assess for air-fluid levels if clinically concerned. No appreciable free air in this limited assessment. Electronically Signed: Etienne Whyte DO at 21:06 EDT ,
[2023-12-01] MEDS: HYDROmorphone 0.5 MG/0.5 ML SYRINGE IV (22:11)
[2023-12-02] VITALS (20 sets, daily range): BP systolic 104–168; BP diastolic 48–83; PULSE 75–94; RESP 9–19; TEMP 36.2–37.3; O2SAT 88–99; BMI 21.7
--- NOTE | 2023-12-02 01:48 | HP.PCM.HOS_ITS ---
HPI - General General Date of Admission: 12/02/23 Date of Service: 12/02/23 Chief Complaint: Abdominal pain HPI Narrative MITCH VEGA, is a 68 M who presented to [facility] ED on 12/01/2023 with worsening abdominal pain. Was found on CT abdomen pelvis to have a moderate to high-grade small bowel obstruction possibly due to adhesions. Patient has a very complicated past medical history as noted below. ED physician discussed with general surgery and given patient's complicated history as well as previous colectomy with ileostomy placement of the [facility] back in 2016, decision was made to transfer the patient to [facility]. Patient was accepted by Dr. Chin with general surgery at [facility]. Unfortunately a bed was not available after 6 hours in our ER so hospitalist was contacted for admission. NG tube was placed in the ED per surgery recommendations. I saw the patient at the bedside in the ED. He was laying fairly comfortably in bed. Stated that the pain medications for his abdominal pain given earlier were moderately helpful. He does continue to have some abdominal pain with distention but feels that the pain is manageable right now. He is tolerating the NG tube without issue. He otherwise denies any chest pain, shortness of breath, fevers or chills. No other acute concerns at this time. Patient's medical history is significant for CAD s/p CABG in 2007 and stenting in 2014, colon cancer s/p partial colectomy with ileostomy placement in 2016, and CVA x 3 with carotid artery disease. Patient recently presented to our ED on 11/10 with strokelike symptoms including left arm and left leg weakness and persistent numbness. CTA head/neck showed a short dissection of the right common carotid bulb extending to the proximal right ICA and proximal right ECA. Patient was transferred to [facility] for further management. Unfortunately, I was not able to access [facility] records as the system is down. Patient states that he had a carotid stent placed while at [facility]. Given ongoing weakness, patient was discharged from [facility] to [facility] in [place]. Patient has been on aspirin and Plavix since stent placement. He also has Eliquis listed on his home med list. When I asked the patient about this, he stated that he has not started the Eliquis yet. Apparently cardiology followed with him at [facility] and patient may have had A-fib while there, and fiberglass roller was plan irving to start him on Eliquis after a certain amount of time on aspirin and Plavix dual antiplatelet therapy. [facility] Medical History Anxiety disorder Arthritis 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 Cancer Cardiology follow-up encounter Carotid artery disease Colorectal cancer CPAP (continuous positive airway pressure) dependence CVA (cerebral vascular accident) Depression Diabetic neuropathy Dietary restriction Dyslipidemia Dysphagia Essential hypertension Gastric reflux GERD (gastroesophageal reflux disease) High cholesterol History of echocardiogram History of heart attack History of pain when walking History of stress test HTN (hypertension) Injury of back Injury of head and neck 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 Leg cramps Loss of hearing Non-smoker Obstructive sleep apnea Orthostatic hypotension ALEJANDRO (obstructive sleep apnea) Peripheral vascular occlusive disease Restless legs Restrictive lung disease Shortness of breath on exertion Syncope Type 2 diabetes mellitus Walker as ambulation aid Wears glasses Home Medications aspirin 81 mg chewable tablet 81 mg PO DAILY heart health 03/20/16 [History Last Taken 03/10/23] fluticasone propionate 50 mcg/actuation nasal spray,suspension (Flonase Allergy Relief) 1 spray intranasal DAILY PRN allergies 12/17/20 [History Last Taken 09/22/21] gabapentin 300 mg capsule 300 mg PO QHS neuropathy 12/17/20 [History Last Taken 03/10/23] insulin lispro 100 unit/mL subcutaneous pen (Humalog KwikPen (U-100) Insulin) See Rx Instructions subcut .COMPLEX diabetes 09/26/21 [History Last Taken 03/10/23] nitroglycerin 0.4 mg sublingual tablet 0.4 mg sublingual Q5M PRN chest pain #25 tabs 10/15/21 [Rx Last Taken Unknown] rosuvastatin 20 mg tablet 20 mg PO QHS cholesterol #90 tabs 02/13/23 [Rx Last Ta jac 03/10/23] peg 400-propylene glycol (PF) 0.4 %-0.3 % eye drops in a dropperette (Lubricant Eye (PG-PEG 400) (PF)) 1 drp EACH EYE DAILY PRN dry eye(s) 03/10/23 [History Last Taken Unknown] duloxetine 60 mg capsule,delayed release 30 mg (1/2 x 60 mg) PO DAILY depression #30 caps 03/12/23 [Rx Last Taken 03/10/23] clopidogrel 75 mg tablet 75 mg PO DAILY blood thinner #90 tabs 10/10/23 [Rx Last Taken Unknown] insulin glargine-yfgn 100 unit/mL (3 mL) subcutaneous pen (Semglee (insulin glargine-yfgn) Pen) 25 unit subcut BID 11/11/23 [History Last Taken Unknown] apixaban 5 mg tablet (Eliquis) 5 mg PO BID 12/01/23 [History Last Taken Unknown] atorvastatin 40 mg tablet 40 mg PO QHS 12/01/23 [History Last Taken Unknown] carvedilol 6.25 mg tablet 12.5 mg PO BID 12/01/23 [History Last Taken Unknown] ergocalciferol (vitamin D2) 1,250 mcg (50,000 unit) capsule 1,250 mcg PO DAILY 12/01/23 [History Last Taken Unknown] magnesium oxide 400 mg PO DAILY 12/01/23 [History Last Taken Unknown] mirtazapine 7.5 mg tablet 7.5 mg PO QHS 12/01/23 [History Last Taken Unknown] pantoprazole 40 mg tablet,delayed release 40 mg PO DAILY 12/01/23 [History Last Taken Unknown] Allergy/AdvReac Type Severity Reaction Status Date / Time No Known Allergies Allergy Verified 11/29/23 11:30 Family History Father CAD (coronary artery disease) Hypertension Cancer leukemia Diabetes Heart disease High cholesterol Mother CVA (cerebral vascular accident) Diabetes Breast cancer Brother Diabetes Surgical History Excision Max.Zygoma Face Tumor H/O coronary artery bypass surgery (05/30/08) History of bilateral cataract extraction History of coronary artery stent placement (01/02/15) History of eye surgery History of herniorrhaphy History of left heart catheterization (LHC) (~01/22/15) History of right and left heart catheterization (LHC) (~12/25/14) History of right-sided carotid endarterectomy History of tonsillectomy PTCA Left Anterior Tibial and Paroneal Artery Social History Smoking Status: Never smoker alcohol intake: never substance use type: does not use caffeine: Yes what type of physical activity do you participate in: none ROS Constitutional Constitutional: Reports fatigue and weakness; Denies chills or fever(s) Eyes Eyes: Denies change in vision Cardiovascular Cardiovascular: Denies chest pain Respiratory/Chest Respiratory/Chest: Denies shortness of breath at rest Gastrointestinal Gastrointestinal: Reports abdominal pain, nausea and vomiting; Denies diarrhea Genitourinary Genitourinary: Denies dysuria Vital Signs Vital Signs Vital Signs: 12/01/23 16:39 12/01/23 16:53 12/01/23 18:19 Temperature 98 F 98.2 F Temperature Source Temporal Oral Pulse Rate 77 77 72 Respiratory Rate 18 18 16 Blood Pressure 111/60 106/58 L 138/63 H Blood Pressure Mean 77 74 88 Pulse Ox 93 91 93 Oxygen Delivery Method Room Air Room Air Room Air 12/01/23 22:00 12/01/23 20:00 12/01/23 17:10 Temperature 98 F Temperature Source Oral Pulse Rate 73 73 Respiratory Rate 18 18 Blood Pressure 143/60 H 119/56 L Blood Pressure Mean 87 77 Pulse Ox 92 92 95 Oxygen Delivery Method Room Air Room Air 12/01/23 17:15 12/01/23 17:30 12/01/23 17:41 Temperature Temperature Source Pulse Rate Respiratory Rate Blood Pressure 130/64 H 123/59 H Blood Pressure Mean 85 78 Pulse Ox 89 93 Oxygen Delivery Method 12/01/23 17:45 12/01/23 18:00 12/01/23 18:15 Temperature Temperature Source Pulse Rate Respiratory Rate Blood Pressure 124/56 H 128/61 H 138/63 H Blood Pressure Mean 77 81 84 Pulse Ox 91 91 86 Oxygen Delivery Method 12/01/23 18:30 12/01/23 18:45 12/01/23 19:00 Temperature Temperature Source Pulse Rate Respiratory Rate Blood Pressure 134/64 H 100/48 L 109/56 L Blood Pressure Mean 84 64 70 Pulse Ox 94 91 Oxygen Delivery Method 12/01/23 19:15 12/01/23 19:30 12/01/23 19:45 Temperature Temperature Source Pulse Rate Respiratory Rate Blood Pressure 111/56 L 124/53 H 111/56 L Blood Pressure Mean 72 74 71 Pulse Ox 94 91 90 Oxygen Delivery Method 12/01/23 20:00 12/01/23 20:15 12/01/23 20:30 Temperature Temperature Source Pulse Rate 72 70 69 Respiratory Rate 11 L 11 L 10 L Blood Pressure 155/69 H 122/55 H 130/64 H Blood Pressure Mean 95 73 84 Pulse Ox 94 94 94 Oxygen Delivery Method 12/01/23 20:45 12/01/23 21:00 12/01/23 21:15 Temperature Temperature Source Pulse Rate 70 71 Respiratory Rate 12 Blood Pressure 115/53 L 131/59 H 134/61 H Blood Pressure Mean 72 80 82 Pulse Ox 91 92 89 Oxygen Delivery Method 12/01/23 21:30 12/01/23 21:45 12/01/23 22:00 Temperature Temperature Source Pulse Rate 73 Respiratory Rate Blood Pressure 132/57 H 119/56 L 143/60 H Blood Pressure Mean 79 75 84 Pulse Ox 91 92 92 Oxygen Delivery Method 12/01/23 22:15 12/01/23 22:30 12/01/23 22:45 Temperature Temperature Source Pulse Rate Respiratory Rate Blood Pressure 123/52 H 136/58 H 126/52 H Blood Pressure Mean 74 81 74 Pulse Ox 90 89 89 Oxygen Delivery Method 12/01/23 23:00 12/01/23 23:15 12/01/23 23:30 Temperature Temperature Source Pulse Rate Respiratory Rate Blood Pressure 115/54 L 118/49 L 118/52 L Blood Pressure Mean 74 70 73 Pulse Ox 90 91 90 Oxygen Delivery Method 12/01/23 23:45 12/02/23 00:00 12/02/23 00:15 Temperature Temperature Source Pulse Rate 94 77 Respiratory Rate 19 H 10 L Blood Pressure 119/56 L 139/58 H 117/55 L Blood Pressure Mean 75 83 74 Pulse Ox 92 89 Oxygen Delivery Method 12/02/23 00:30 Temperature Temperature Source Pulse Rate 78 Respiratory Rate 10 L Blood Pressure 113/56 L Blood Pressure Mean 74 Pulse Ox 90 Oxygen Delivery Method Weight Weight: 60.146 kg Body Mass Index (BMI) 21.4 Physical Exam Const alert, oriented x3, no apparent distress and average body habitus Constitutional Narrative: Pleasant elderly male, laying in bed, in mild discomfort secondary to abdominal pain, otherwise conversing normally. General Appearance: cooperative HEENT normocephalic, head/scalp atraumatic, hearing grossly normal bilaterally and nasal mucous membranes and turbinates normal Eyes PERRL, EOMs intact bilaterally and conjunctivae normal Neck full ROM Chest inspection of chest normal Resp normal respiratory effort, normal air movement, no use of accessory muscles and clear to auscultation bilaterally Cardio regular rate, regular rhythm, no murmurs and peripheral pulses 2+ throughout GI GI Narrative: Ileostomy in place with brown stool of fairly normal consistency in bag. Mild to moderate tenderness noted diffusely. Mild distention noted. Back/Spine normal ROM Extremity normal to inspection, full ROM and no pedal edema Skin no rashes or lesions noted Neuro Speech: speech normal Psych mental status grossly normal Results Lab / Micro Data 12/01/23 17:00 12/01/23 17:00 Labs: Laboratory Results - last 24 hr 12/01/23 17:00: WBC 15.8 H, RBC 3.51 L, Hgb 9.8 L, Hct 30.6 L, MCV 87.2, MCH 27.9, MCHC 32.0, RDW Std Deviation 50.8 H, RDW Coeff of Maia 15.9 H, Plt Count 350, MPV 10.5, Immature Gran % (Auto) 0.500, Neut % (Auto) 87.6 H, Lymph % (Auto) 4.7 L, [place] % (Auto) 6.8, Eos % (Auto) 0.1, Baso % (Auto) 0.3, Absolute Neuts (auto) 13.8 H, Absolute Lymphs (auto) 0.74 L, Nucleated RBC % 0.1, PT 25.0 H, INR 2.3, Sodium 133 L, Potassium 4.2, Chloride 99, Carbon Dioxide 29.0, Anion Gap 5, BUN 48 H, Creatinine 1.30, Estim Creat Clear Calc 47.55, Est GFR (MDRD) Af Amer 71, Est GFR (MDRD) Non-Af 59 L, BUN/Creatinine Ratio 36.9 H, Glucose 233 H, Calcium 9.1, Total Bilirubin 0.60, AST 268 H, ALT 295 H, Alkaline Phosphatase 101, Total Protein 7.0, Albumin 2.4 L, Globulin 4.6 H, Albumin/Globulin Ratio 0.5 L, Lipase 21 12/01/23 18:30: Urine Color Yellow, Urine Clarity Clear, Urine pH 5.0, Ur Specific [place] 1.010, Urine Protein 15 H, Urine Glucose (UA) Normal, Urine Ketones Negative, Urine Occult Blood 10 H, Urine Nitrite Negative, Urine Bilirubin Negative, Urine Urobilinogen Normal, Ur Leukocyte Esterase Negative, Urine RBC 0 SEEN, Urine WBC 0 SEEN, Ur Squamous Epith Cells 0 SEEN, Urine Bacteria 0 SEEN, Urine Mucus 0 SEEN Imaging Radiology Impression Abdomen/Pelvis CT 12/01/23 17:15 IMPRESSION: 1. Moderate to high-grade small bowel obstruction, possibly due to adhesions. 2. Cholelithiasis. 3. Hepatic steatosis. Electronically Signed: Alta Lemus MD at 18:41 EDT Reading Location ID and State: [id number] / Tel , Service support , ADDENDUM: 12/01/23 1903 IMPRESSION: 1. Moderate to high-grade small bowel obstruction, possibly due to adhesions. 2. Cholelithiasis. 3. Hepatic steatosis. N.B. : Dwayne Marshall NP, confirmed on 12/01/2023 18:56:12 (ET) that the referring physician received the results and does not require a verbal communication. Electronically Signed: Alta Lemus MD at 18:41 EDT Reading Location ID and State: [place] / Tel , Service support , KUB X-Ray 12/01/23 19:50 IMPRESSION: NG tube tip projecting cephalad over the stomach fundus. Minimally prominent air-filled small bowel loops midabdomen. Consider upright or crosstable lateral views to assess for air-fluid levels if clinically concerned. No appreciable free air in this limited assessment. Electronically Signed: Etienne Whyte DO at 21:06 EDT , Assessment & Plan Assessment/Plan (1) SBO (small bowel obstruction): PLAN: Plan Patient is a 68-year-old male who presented to [facility] ED on 12/01/2023 with worsening abdominal pain. 1. Small bowel obstruction, history of colon cancer s/p partial colectomy and ileostomy placement ? Admit under inpatient status to [facility]. NG tube placed in the ED. Planning for transfer to [facility] once bed is available. Suspected that SBO is due to adhesions from prior surgery for colon cancer. See HPI for further details. N.p.o. status. Pain control with oxycodone and IV Dilaudid as needed. Maintenance IV fluids. General surgery consulted for assistance while here. 2. Recent CVA with small carotid artery dissection s/p stenting, history of CVA x 3 ? See HPI for further details. Will continue aspirin and Plavix for now given very recent carotid stent placement. Continue home statin. PT/OT/case management consulted as noted below. 3. Debility ? Previously lived at home with his and grandson. Has been at SNF for the last several days after discharge from [facility] after having a CVA requiring carotid stent placement as noted above. PT/OT/case management consulted. 4. Elevated transaminases ? AST 268, ALT 295 on admit. Total bilirubin and alk phos normal. Suspect related to SBO as noted above. Trend daily CMP. 5. Mild MADELEINE ? Creatinine 1.30 on admit, baseline appears to be around 0.7-1.0. Suspect due to dehydration in setting of SBO. Will start low-dose maintenance fluids at LR 75 cc/hr for now. Monitor daily BMP and urine output. 6. Type 2 diabetes mellitus with hyperglycemia ? Home regimen of insulin glargine 25 units twice daily and Humalog sliding scale insulin with meals. Blood glucose 233 on admit. Patient is n.p.o. given SBO as noted above. Will start Lantus 15 units twice daily and sliding scale insulin, adjust as needed. 7. History of CAD s/p CABG and stenting/hypertension/hyperlipidemia ? Follows with [place] [facility], last office visit in September. Had CABG x 5 done in 2007, then KENZIE x 1 in 2014. Stable at office visit, no medication changes made. Continue home statin and beta-tian. Continue home aspirin and Plavix for now as noted above. Chronic medical conditions: ? Mood disorder/insomnia: Stable. Continue home duloxetine and mirtazapine. ? Neuropathy: Continue home gabapentin. ? Allergies: Continue home fluticasone as needed. ? GERD: Continue home PPI. ? ALEJANDRO: Continue home CPAP at night. ? Chronic anemia: Hemoglobin 9.8 on admit, baseline appears to be around 10-11. Follow-up a.m. CBC. DVT prophylaxis: Lovenox CODE STATUS: Full code, verified Expected disposition: Transfer to [facility] Total clinical time spent by myself addressing the patient's medical issues, reviewing all the data, and collaborating with patient's care team: 55 minutes. Charges/Coding Visit Charges Inpatient E&M: 42882 Init Hosp L2
[2023-12-02] MEDS: oxyCODONE 5 MG Tablet PO (05:14)
[2023-12-02] MEDS: Lactated Ringers 1,000 ML 75 ML IV (05:15)
[2023-12-02] MEDS: Insulin Lispro 100 UNIT/ML INSULN.PEN SC ×2 (06:07→12:28)
[2023-12-02 06:28] LABS: Bedside Glucose 214 mg/dL (74-106)
[2023-12-02 07:27] LABS: Hemoglobin 10.2 g/dL (13.0-16.5); Mean Corp Hgb Conc 31.9 g/dL (32-36); Mean Corpuscular Hgb 27.8 pg (27.0-32.0); Mean Corpuscular Volume 87.2 fL (80-94); Mean Platelet Vol. 10.6 fl (6.2-12.0); Platelet Count 360 K/mm3 (150-450); RBC Distribution Width CV 15.9 % (11.6-14.6); RBC Distribution Width SD 50.4 fl (35.1-43.9); Red Blood Count 3.67 M/mm3 (4.6-6.2); White Blood Count 14.5 K/mm3 (4.4-11.0)
[2023-12-02 07:58] LABS: ALB/GLOB Ratio 0.5 RATIO (0.9-2.4); AST(SGOT) 234 U/L (15-37); Alanine Aminotransfer ALT/SGPT 316 U/L (16-61); Albumin, Serum 2.4 g/dL (3.2-5.0); Alkaline Phosphatase 106 U/L (45-117); Anion Gap 6 (5-15); BUN 39 mg/dL (7-18); BUN/Creat Ratio 40.8 RATIO (10-20); Chloride 100 mmol/L (98-107); Creatinine, Serum 0.96 mg/dL (0.70-1.30); EST Glomerular Filtration Rate 84 mL/min (>60); Est Glom Filt Rate - Afr Amer 101 mL/min (>60); Estimated Creatinine Clearance 65.52 ml/min; Globulin 4.7 g/dL (2.2-4.2); Glucose 214 mg/dL (74-106); Potassium 4.2 mmol/L (3.5-5.1); Protein, Total 7.1 g/dL (6.4-8.2); Sodium Level 135 mmol/L (136-145)
--- NOTE | 2023-12-02 10:01 | PCM.DC.SUM ---
Providers Date of Admission: 12/02/23 Date of Discharge: 12/02/23 Primary Care Physician: Dr. Kendy Modi MD Consultations 12/02/23 02:44 Consult: General Surgery Routine Consulting Provider: Etienne Galindo Reason for Consult: SBO, [facility] transfer in process, appreciate recs while here EMERGENT Consult: No MD Notified: Yes Date Notified: 12/02/23 Time Notified: 02:15 Method of Notification: Text 12/02/23 05:06 Consult: Onc/Wound/cocoa bean cleaner Routine Comment: Reason for Consult:: ostomy Reason For Visit: SMALL BOWEL OBSTRUCTION Diagnosis Discharge Diagnosis (1) SBO (small bowel obstruction): Status: Acute Code(s): K56.609 - Unspecified intestinal obstruction, unspecified as to partial versus complete obstruction Medications at Discharge Home Medications aspirin 81 mg chewable tablet 81 mg PO DAILY heart health 03/20/16 fluticasone propionate 50 mcg/actuation nasal spray,suspension (Flonase Allergy Relief) 1 spray intranasal DAILY PRN allergies 12/17/20 gabapentin 300 mg capsule 300 mg PO QHS neuropathy 12/17/20 insulin lispro 100 unit/mL subcutaneous pen (Humalog KwikPen (U-100) Insulin) See Rx Instructions subcut .COMPLEX diabetes 09/26/21 nitroglycerin 0.4 mg sublingual tablet 0.4 mg sublingual Q5M PRN chest pain #25 tabs 10/15/21 rosuvastatin 20 mg tablet 20 mg PO QHS cholesterol #90 tabs 02/13/23 peg 400-propylene glycol (PF) 0.4 %-0.3 % eye drops in a dropperette (Lubricant Eye (PG-PEG 400) (PF)) 1 drp EACH EYE DAILY PRN dry eye(s) 03/10/23 duloxetine 60 mg capsule,delayed release 30 mg (1/2 x 60 mg) PO DAILY depression #30 caps 03/12/23 clopidogrel 75 mg tablet 75 mg PO DAILY blood thinner #90 tabs 10/10/23 insulin glargine-yfgn 100 unit/mL (3 mL) subcutaneous pen (Semglee (insulin glargine-yfgn) Pen) 25 unit subcut BID diabetes 11/11/23 apixaban 5 mg tablet (Eliquis) 5 mg PO BID PCI 12/01/23 atorvastatin 40 mg tablet 40 mg PO QHS anti lipid 12/01/23 carvedilol 6.25 mg tablet 12.5 mg PO BID hypertension 12/01/23 ergocalciferol (vitamin D2) 1,250 mcg (50,000 unit) capsule 1,250 mcg PO DAILY general health 12/01/23 magnesium oxide 400 mg PO DAILY heart health 12/01/23 mirtazapine 7.5 mg tablet 7.5 mg PO QHS anxiety 12/01/23 pantoprazole 40 mg tablet,delayed release 40 mg PO DAILY GERD 12/01/23 acetaminophen 325 mg capsule 650 mg PO Q6H pain 12/02/23 amlodipine 5 mg tablet 5 mg PO DAILY hypertention 12/02/23 ascorbic acid (vitamin C) 500 mg capsule 500 mg PO DAILY general health 12/02/23 dextrose 40 % oral gel (Glucose Gel) 10 g PO Q15M PRN hypoglycemia 12/02/23 nutrition tx glu intol,lac-free,soy-fiber 0.07 gram-0.8 kcal/mL liquid (Boost Glucose Control) 120 ml PO TID diabetes 12/02/23 ondansetron 4 mg disintegrating tablet 4 mg PO Q4H PRN nausea 12/02/23 polyethylene glycol 3350 17 gram/dose oral powder (Miralax) 17 g PO DAILY constipation 12/02/23 sodium chloride 0.9 % 100 ea IV .continuous fluid imbalance 12/02/23 Hospital Course Procedures - (NG tube placement/CT of the abdomen pelvis/KUB) Summary of Care Provided Minutes Spent on Discharge: 37 Hospital Course: Mr. Haji is a 68-year-old white male who presented to the emergency department which [facility] on 12/01/2023 with worsening abdominal pain. He has a complicated past medical history including previous colectomy with ileostomy which was done at [facility] back in 2017 and recent stroke with carotid artery disease. He did present to emergency department on 11/11/2023 with strokelike symptoms and CT of the head and neck showed short dissection of the right chronic but did carotid artery bulb extending to the proximal right ICA and proximal right ECA. A cardiac stent was placed at that time. He is on aspirin and Plavix at baseline and was to be starting Eliquis in the near future however had not yet started it. Vital signs on presentation showed a temperature of 98, heart rate 77, blood pressure 111/60, respiratory was 18 oxygen saturations were 93% on room air. CBC showed a leukocytosis with a white count of 15.8, anemia at 9.8 which is slightly lower than his baseline, normal platelet count but he did have an left shift with an 87.6% neutrophilia. His coags were abnormal with an INR of 2.3 and a PTT of 25.0 so I do question whether or not he is actually taking his Eliquis or not. His chemistry panel showed a mild hyponatremia with a sodium of 133, normal potassium and chloride, BUN was 48 with a serum creatinine of 1.30 which appears to be a bit higher than his baseline of 0.7-1.0. His glucose was 233 and his AST and ALT were elevated respectively at 268 and 295. Lipase was normal. CT of the abdomen pelvis was done and showed moderate to high-grade small bowel obstruction possibly due to adhesions, cholelithiasis, and hepatic steatosis. The emergency department physician spoke to our general surgery surgeon on-call who recommended transfer to tertiary center given the complexity of his past medical history and the acute case. Contact was made with [facility] where Dr. Chin was on-call and accepted the patient for transfer. An NG tube was placed and a follow-up KUB indicated keep the NG was in good position. Patient was in the emergency department for some time awaiting for bed for transport however no bed was available so request for admission was made. Bed became available on 12/02/2023 and the patient was able to be transferred to [facility] in stable condition. Discharge diagnoses: High-grade small bowel obstruction History of colon cancer status post partial colectomy and ileostomy Recent stroke Carotid artery dissection status post stenting History of stroke x 3 Generalized weakness and debility Transaminitis Dehydration with serum creatinine elevation DM-2 CAD status post CABG Hypertension Hyperlipidemia Diabetic neuropathy GERD ALEJANDRO Chronic anemia Chronic allergies-seasonal Mood disorder Arthritis Physical Exam Narrative Patient states his abdomen feels better with the NG tube down however he is having some nasal congestion and little bit of a sore throat related to the NG tube Const alert, oriented x3, no apparent distress and no limitations; Negative for healthy appearing Constitutional Narrative: Chronically ill-appearing, middle-aged, white male, lying in bed, at bedside, currently appears comfortable, does not appear toxic at this time General Appearance: cooperative, comfortable, well kempt and well developed Orientation / Consciousness: awake, oriented to person, oriented to place and oriented to time Exam Limitations: no limitations HEENT normocephalic, head/scalp atraumatic and moist oral mucous membranes HEENT Narrative: Dentition is poor, OG is in place, Mallampati is 2, no thrush Eyes PERRL, EOMs intact bilaterally and conjunctivae normal Eyes Narrative: No scleral icterus Neck no lymphadenopathy and supple Resp normal respiratory effort, no retractions, no use of accessory muscles and clear to auscultation bilaterally Resp Narrative: Diffusely diminished but clear Cardio regular rate, regular rhythm, S1 normal heart sound, S2 normal heart sound, no murmurs, no rub, no gallops and no clicks GI GI Narrative: Bowel signs are hypoactive, ostomy is in right lower quadrant with stool in bag however it is dark and minimal, no significant distention at this time with NG in place and abdomen is soft with no significant tenderness currently Extremity no clubbing, cyanosis or edema Skin no rashes or lesions noted, skin turgor normal and no jaundice Skin Narrative: Right neck is a well-healing postoperative surgical wound from recent stent placement at [facility]-area is clean dry and intact without any signs of drainage, erythema or infection Neuro oriented x3, moves all extremities and no focal motor deficits Speech: speech normal Psych affect normal Psych Narrative: Eye contact is good, patient is very pleasant, interacts appropriately and answers all questions Weight / BMI Weight Weight: 61.2 kg Body Mass Index (BMI) 21.7 ABG / Lab / Microbiology Data 12/02/23 06:58 12/02/23 06:58 Laboratory: Laboratory Results - last 24 hr 12/01/23 17:00: WBC 15.8 H, RBC 3.51 L, Hgb 9.8 L, Hct 30.6 L, MCV 87.2, MCH 27.9, MCHC 32.0, RDW Std Deviation 50.8 H, RDW Coeff of Maia 15.9 H, Plt Count 350, MPV 10.5, Immature Gran % (Auto) 0.500, Neut % (Auto) 87.6 H, Lymph % (Auto) 4.7 L, [place] % (Auto) 6.8, Eos % (Auto) 0.1, Baso % (Auto) 0.3, Absolute Neuts (auto) 13.8 H, Absolute Lymphs (auto) 0.74 L, Nucleated RBC % 0.1, PT 25.0 H, INR 2.3, Sodium 133 L, Potassium 4.2, Chloride 99, Carbon Dioxide 29.0, Anion Gap 5, BUN 48 H, Creatinine 1.30, Estim Creat Clear Calc 47.55, Est GFR (MDRD) Af Amer 71, Est GFR (MDRD) Non-Af 59 L, BUN/Creatinine Ratio 36.9 H, Glucose 233 H, Calcium 9.1, Total Bilirubin 0.60, AST 268 H, ALT 295 H, Alkaline Phosphatase 101, Total Protein 7.0, Albumin 2.4 L, Globulin 4.6 H, Albumin/Globulin Ratio 0.5 L, Lipase 21 12/01/23 18:30: Urine Color Yellow, Urine Clarity Clear, Urine pH 5.0, Ur Specific Williams 1.010, Urine Protein 15 H, Urine Glucose (UA) Normal, Urine Ketones Negative, Urine Occult Blood 10 H, Urine Nitrite Negative, Urine Bilirubin Negative, Urine Urobilinogen Normal, Ur Leukocyte Esterase Negative, Urine RBC 0 SEEN, Urine WBC 0 SEEN, Ur Squamous Epith Cells 0 SEEN, Urine Bacteria 0 SEEN, Urine Mucus 0 SEEN 12/02/23 06:05: POC Glucose 214 H 12/02/23 06:58: WBC 14.5 H, RBC 3.67 L, Hgb 10.2 L, Hct 32.0 L, MCV 87.2, MCH 27.8, MCHC 31.9 L, RDW Std Deviation 50.4 H, RDW Coeff of Maia 15.9 H, Plt Count 360, MPV 10.6, Sodium 135 L, Potassium 4.2, Chloride 100, Carbon Dioxide 29.0, Anion Gap 6, BUN 39 H, Creatinine 0.96, Estim Creat Clear Calc 65.52, Est GFR (MDRD) Af Amer 101, Est GFR (MDRD) Non-Af 84, BUN/Creatinine Ratio 40.8 H, Glucose 214 H, Calcium 9.0, Total Bilirubin 0.60, AST 234 H, ALT 316 H, Alkaline Phosphatase 106, Total Protein 7.1, Albumin 2.4 L, Globulin 4.7 H, Albumin/Globulin Ratio 0.5 L Radiography Diagnostic Testing: Radiology Impression Abdomen/Pelvis CT 12/01/23 17:15 IMPRESSION: 1. Moderate to high-grade small bowel obstruction, possibly due to adhesions. 2. Cholelithiasis. 3. Hepatic steatosis. Electronically Signed: Alta Lemus MD at 18:41 EDT Reading Location ID and State: [id number] / Tel , Service support , ADDENDUM: 12/01/23 1903 IMPRESSION: 1. Moderate to high-grade small bowel obstruction, possibly due to adhesions. 2. Cholelithiasis. 3. Hepatic steatosis. N.B. : Dwayne Marshall NP, confirmed on 12/01/2023 18:56:12 (ET) that the referring physician received the results and does not require a verbal communication. Electronically Signed: Alta Lemus MD at 18:41 EDT Reading Location ID and State: [id number] / Tel , Service support , KUB X-Ray 12/01/23 19:50 IMPRESSION: NG tube tip projecting cephalad over the stomach fundus. Minimally prominent air-filled small bowel loops midabdomen. Consider upright or crosstable lateral views to assess for air-fluid levels if clinically concerned. No appreciable free air in this limited assessment. Electronically Signed: Etienne Whyte DO at 21:06 EDT , Meaningful Use Info Meaningful Use Meaningful Use Diagnoses (Choose all that apply): None applicable Ischemic Stroke Statin Dosing Therapy Reference: STATIN DOSE THERAPY REFERENCE: * Patients > 75 years receive moderate or high dose statin therapy. * Patients 75 years or YOUNGER should receive HIGH intensity statin dose unless contraindicated. You will be required to document reason for non-treatment if statin daily dose does not meet guidelines. HIGH DOSE STATIN THERAPY DAILY Atorvastatin > than or = to 40 mg Rosuvastatin > than or = to 20 mg Amlodipine + Atorvastatin > than or = to 2.5/40 mg Ezetimibe + Simvastatin 10/80 mg Simvastatin 80mg Discharge Plan Admission Admit Date/Time: 12/02/23 01:50 Primary Reason for Your Visit: Abdominal pain Attending Provider: Ling Ford Primary Care Provider: Kendy Modi Consulting Providers: Etienne Galindo; Claudio Devlin Discharge Orders/Prescriptions Prescriptions: No Action gabapentin 300 mg capsule 300 mg PO QHS fluticasone propionate [Flonase Allergy Relief] 50 mcg/actuation spray,suspension 1 spray intranasal DAILY PRN (Reason: allergies) Rx Instructions: administer into each nostril nitroglycerin 0.4 mg tablet, sublingual 0.4 mg sublingual Q5M PRN (Reason: chest pain) Qty: 25 3RF Rx Instructions: do not exceed 3 doses per episode aspirin 81 MG tablet,chewable 81 mg PO DAILY Patient Comments: heart health, paroxysmal AFib insulin lispro [Humalog KwikPen Insulin] 100 unit/mL insulin pen See Rx Instructions SC .COMPLEX Rx Instructions: Take 10 units each meal plus sliding scale ( 150 to 200 0units, 201 to 250 2 units, 251 to 300 4 units, 301 to 350 6 units, 351 to 400 8 units) Lubricant Eye (PG-PEG 400)(PF) 0.4-0.3 % dropperette 1 drp EACH EYE DAILY PRN (Reason: dry eye(s)) duloxetine 60 MG capsule,delayed release(DR/EC) 30 mg PO DAILY Qty: 30 1RF Patient Comments: antidepressant insulin glargine-yfgn [Semglee(insulin glarg-yfgn)Pen] 100 unit/mL (3 mL) insulin pen 25 unit subcut BID mirtazapine 7.5 mg tablet 7.5 mg PO QHS magnesium oxide 400 mg magnesium capsule 400 mg PO DAILY atorvastatin 40 mg tablet 40 mg PO QHS Eliquis 5 mg tablet 5 mg PO BID Patient Comments: also paroxsymal AFib pantoprazole 40 mg tablet,delayed release (DR/EC) 40 mg PO DAILY ergocalciferol (vitamin D2) 1,250 mcg (50,000 unit) capsule 1,250 mcg PO DAILY carvedilol 6.25 mg tablet 12.5 mg PO BID Rx Instructions: must administer with a meal/food acetaminophen 325 mg capsule 650 mg PO Q6H amlodipine 5 mg tablet 5 mg PO DAILY ascorbic acid (vitamin C) 500 mg capsule 500 mg PO DAILY polyethylene glycol 3350 [Miralax] 17 gram/dose powder 17 g PO DAILY Boost Glucose Control 0.07-0.8 gram-kcal/mL liquid 120 ml PO TID dextrose [Glucose Gel] 40 % gel 10 g PO Q15M PRN (Reason: hypoglycemia) Rx Instructions: until symptoms of low blood sugar are controlled ondansetron 4 mg tablet,disintegrating 4 mg PO Q4H PRN (Reason: nausea) Rx Instructions: give 1st dose 30min before emetogenic chemo sodium chloride 0.9 % Parenteral Solution 100 ea IV .continuous rosuvastatin 20 mg tablet 20 mg PO QHS Qty: 90 3RF clopidogrel 75 mg tablet 75 mg PO DAILY Qty: 90 3RF Referrals / Follow Up: Kendy Modi MD [Primary Care Provider] - Disposition Disposition (needs filled in before D/C Order can be placed): Acute Care Hospital Charges/Coding Visit Charges Inpatient E&M: 29401 Disch Hosp >30min
--- NOTE | 2023-12-02 10:26 | EX.PCM.CON.S ---
Assessment & Plan Assessment/Plan (1) SBO (small bowel obstruction): PLAN: Patient is a 68-year-old male with numerous comorbidities primarily centered around a history of coronary and carotid artery stenosis but also has a history of rectal cancer status postresection who presents with signs and symptoms of a small bowel obstruction. A detailed history was elicited and I glean that patient was recently admitted to [facility] where he underwent carotid stenting for a CVA. Post procedurally he was advised he would need to remain on aspirin, Plavix, and Eliquis for 1 month uninterrupted and then, reportedly, should be able to transition off of his Plavix. Unfortunately this stent was just placed earlier this week and patient's care at the outside hospital was complicated by additional cardiopulmonary instability with reports of a small heart attack as well as hypoxia requiring an ICU stay. From a bowel standpoint patient's CT imaging is reviewed and is exam confirms suspicion for a transition point of the small bowel in the right hemipelvis with tenderness of palpation in the right lower quadrant. His cancer history was not immediately clear, but based on his and his spouses recollection I gather that he was first diagnosed with a colorectal malignancy in 2019 and underwent surgery in 2019 after chemoradiation neoadjuvant therapy. This treatment and surgery were undertaken through the [facility]. Thus Mr. Vega remains a prohibitive surgical candidate for an operation at this facility given the absence of readily available blood products or support personnel with his significant cardiopulmonary risk. This impression was shared, frankly, with patient and his spouse and they expressed understanding for the need for transfer. I have been informed by nursing that patient is due to be transferred later this afternoon as a bed is expected to come available. If for what ever reason there is a delay in obtaining this bed availability I have discussed seeking acceptance with other area facilities so patient is not further delayed in his treatment (given his suboptimal nutrition and debilitated status). He and his suggest they are open to other arrangements but their preference is to stay in either [place] or [facility]. For now recommend: ? Continued IV fluid resuscitation ? NG tube to low intermittent wall suction ? Transition PPI to IV Protonix 40 mg daily ? Change ostomy appliance and monitor for output Etienne Galindo MD General Surgery Endocrine Surgery Pager: [facility] [address] [place] [address], [facility], [address] [place] [address] Office: [phone] HPI Consult Data Date of Consult: 12/02/23 HPI Narrative Reason for Consultation: Small bowel obstruction HPI Narrative: MITCH VEGA, is a 68 M who presented to [facility] ER from his long-term facility yesterday with complaints of several days of progressive abdominal discomfort, significant nausea, postprandial vomiting, anorexia, and minimal ostomy output. He shares that his last regular oral intake was either 11/28/2023 or 11/29/2023. He denies any such previous experience. His shares that she has tried to increase his diet but has been unsuccessful. She provides some of the history and shares that he was also recently evaluated (this week) after a ground-level fall at his nursing facility. No significant injury was identified and it was a precautionary visit. Patient's ER visit was notable for CBC demonstrating mild leukocytosis and CT imaging of the abdomen pelvis showing moderate to high-grade small bowel obstruction with dilated small bowel loops. Upon learning of patient's presentation and his recent discharge from [facility] on 11/28/2023 (where he was admitted since 11/12/2023 for treatment related to stroke events and subsequent carotid stenting) I recommended seeking emergent transfer. This was based on the knowledge that patient would be unable to interrupt his antiplatelet therapy. Emergency medicine obtained acceptance through [facility] but patient was admitted on account of no bed availability. Patient initially reported a history of colon or rectal cancer first diagnosed in in 2016 with surgery to create an ileostomy. However, I challenged this assertion given review of a CT scan from 2019 that did not show evidence of any ostomy. Patient and his are further unclear on the details as to where the cancer was located but do share that the cancer was treated with upfront chemo and radiation any surgery proceeded uneventfully. This represents patient's only prior abdominal surgical history. Patient's provides further information about his recent stay at [facility]. She shares that his day was protracted on the account of a small heart attack as well as fluid developing around his lungs and needing to be transferred to the ICU for hypoxia. 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 Cancer Cardiology follow-up encounter Carotid artery disease Colorectal cancer CPAP (continuous positive airway pressure) dependence CVA (cerebral vascular accident) Depression Diabetic neuropathy Dietary restriction Dyslipidemia Dysphagia Essential hypertension Gastric reflux GERD (gastroesophageal reflux disease) High cholesterol History of echocardiogram History of heart attack History of pain when walking History of stress test HTN (hypertension) Injury of back Injury of head and neck 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 Leg cramps Loss of hearing Non-smoker Obstructive sleep apnea Orthostatic hypotension ALEJANDRO (obstructive sleep apnea) Peripheral vascular occlusive disease Restless legs Restrictive lung disease Shortness of breath on exertion Syncope Type 2 diabetes mellitus Walker as ambulation aid Wears glasses Home Medications aspirin 81 mg chewable tablet 81 mg PO DAILY heart health 03/20/16 [History Last Taken 03/10/23] fluticasone propionate 50 mcg/actuation nasal spray,suspension (Flonase Allergy Relief) 1 spray intranasal DAILY PRN allergies 12/17/20 [History Last Taken 09/22/21] gabapentin 300 mg capsule 300 mg PO QHS neuropathy 12/17/20 [History Last Taken 03/10/23] insulin lispro 100 unit/mL subcutaneous pen (Humalog KwikPen (U-100) Insulin) See Rx Instructions subcut .COMPLEX diabetes 09/26/21 [History Last Taken 03/10/23] nitroglycerin 0.4 mg sublingual tablet 0.4 mg sublingual Q5M PRN chest pain #25 tabs 10/15/21 [Rx Last Taken Unknown] rosuvastatin 20 mg tablet 20 mg PO QHS cholesterol #90 tabs 02/13/23 [Rx Last Taken 03/10/23] peg 400-propylene glycol (PF) 0.4 %-0.3 % eye drops in a dropperette (Lubricant Eye (PG-PEG 400) (PF)) 1 drp EACH EYE DAILY PRN dry eye(s) 03/10/23 [History Last Taken Unknown] duloxetine 60 mg capsule,delayed release 30 mg (1/2 x 60 mg) PO DAILY depression #30 caps 03/12/23 [Rx Last Taken 03/10/23] clopidogrel 75 mg tablet 75 mg PO DAILY blood thinner #90 tabs 10/10/23 [Rx Last Taken Unknown] insulin glargine-yfgn 100 unit/mL (3 mL) subcutaneous pen (Semglee (insulin glargine-yfgn) Pen) 25 unit subcut BID diabetes 11/11/23 [History Last Taken Unknown] apixaban 5 mg tablet (Eliquis) 5 mg PO BID PCI 12/01/23 [History Last Taken Unknown] atorvastatin 40 mg tablet 40 mg PO QHS anti lipid 12/01/23 [History Last Taken Unknown] carvedilol 6.25 mg tablet 12.5 mg PO BID hypertension 12/01/23 [History Last Taken Unknown] ergocalciferol (vitamin D2) 1,250 mcg (50,000 unit) capsule 1,250 mcg PO DAILY general health 12/01/23 [History Last Taken Unknown] magnesium oxide 400 mg PO DAILY heart health 12/01/23 [History Last Taken Unknown] mirtazapine 7.5 mg tablet 7.5 mg PO QHS anxiety 12/01/23 [History Last Taken Unknown] pantoprazole 40 mg tablet,delayed release 40 mg PO DAILY GERD 12/01/23 [History Last Taken Unknown] acetaminophen 325 mg capsule 650 mg PO Q6H pain 12/02/23 [History Last Taken Unknown] amlodipine 5 mg tablet 5 mg PO DAILY hypertention 12/02/23 [History Last Taken Unknown] ascorbic acid (vitamin C) 500 mg capsule 500 mg PO DAILY general health 12/02/23 [History Last Taken Unknown] dextrose 40 % oral gel (Glucose Gel) 10 g PO Q15M PRN hypoglycemia 12/02/23 [History Last Taken Unknown] nutrition tx glu intol,lac-free,soy-fiber 0.07 gram-0.8 kcal/mL liquid (Boost Glucose Control) 120 ml PO TID diabetes 12/02/23 [History Last Taken Unknown] ondansetron 4 mg disintegrating tablet 4 mg PO Q4H PRN nausea 12/02/23 [History Last Taken Unknown] polyethylene glycol 3350 17 gram/dose oral powder (Miralax) 17 g PO DAILY constipation 12/02/23 [History Last Taken Unknown] sodium chloride 0.9 % 100 ea IV .continuous fluid imbalance 12/02/23 [History Last Taken Unknown] Allergy/AdvReac Type Severity Reaction Status Date / Time No Known Allergies Allergy Verified 11/29/23 11:30 Family History Father CAD (coronary artery disease) Hypertension Cancer leukemia Diabetes Heart disease High cholesterol Mother CVA (cerebral vascular accident) Diabetes Breast cancer Brother Diabetes Surgical History Excision Max.Zygoma Face Tumor H/O coronary artery bypass surgery (05/30/08) History of bilateral cataract extraction History of coronary artery stent placement (01/02/15) History of eye surgery History of herniorrhaphy History of left heart catheterization (LHC) (~01/22/15) History of right and left heart catheterization (LHC) (~12/25/14) History of right-sided carotid endarterectomy History of tonsillectomy PTCA Left Anterior Tibial and Paroneal Artery Social History Smoking Status: Never smoker alcohol intake: never substance use type: does not use caffeine: Yes what type of physical activity do you participate in: none Physical Exam Const alert and oriented x3 Constitutional Narrative: In mild distress from nasogastric tube General Appearance: cooperative Resp normal respiratory effort GI GI Narrative: Minimally distended, soft, tenderness present with palpation of the right lower quadrant. Left lower quadrant with ostomy and some minimal amount of dark liquid stool in the appliance bag. No significant gas is present in the appliance. Nasogastric tube appears to be at appropriate depth and functioning but there is just scant thin gastric contents (nonbilious) in the collection canister Lab / Micro Data 12/02/23 06:58 12/02/23 06:58 Labs: Laboratory Results - last 24 hr 12/01/23 17:00: WBC 15.8 H, RBC 3.51 L, Hgb 9.8 L, Hct 30.6 L, MCV 87.2, MCH 27.9, MCHC 32.0, RDW Std Deviation 50.8 H, RDW Coeff of Maia 15.9 H, Plt Count 350, MPV 10.5, Immature Gran % (Auto) 0.500, Neut % (Auto) 87.6 H, Lymph % (Auto) 4.7 L, [place] % (Auto) 6.8, Eos % (Auto) 0.1, Baso % (Auto) 0.3, Absolute Neuts (auto) 13.8 H, Absolute Lymphs (auto) 0.74 L, Nucleated RBC % 0.1, PT 25.0 H, INR 2.3, Sodium 133 L, Potassium 4.2, Chloride 99, Carbon Dioxide 29.0, Anion Gap 5, BUN 48 H, Creatinine 1.30, Estim Creat Clear Calc 47.55, Est GFR (MDRD) Af Amer 71, Est GFR (MDRD) Non-Af 59 L, BUN/Creatinine Ratio 36.9 H, Glucose 233 H, Calcium 9.1, Total Bilirubin 0.60, AST 268 H, ALT 295 H, Alkaline Phosphatase 101, Total Protein 7.0, Albumin 2.4 L, Globulin 4.6 H, Albumin/Globulin Ratio 0.5 L, Lipase 21 12/01/23 18:30: Urine Color Yellow, Urine Clarity Clear, Urine pH 5.0, Ur Specific [place] 1.010, Urine Protein 15 H, Urine Glucose (UA) Normal, Urine Ketones Negative, Urine Occult Blood 10 H, Urine Nitrite Negative, Urine Bilirubin Negative, Urine Urobilinogen Normal, Ur Leukocyte Esterase Negative, Urine RBC 0 SEEN, Urine WBC 0 SEEN, Ur Squamous Epith Cells 0 SEEN, Urine Bacteria 0 SEEN, Urine Mucus 0 SEEN 12/02/23 06:05: POC Glucose 214 H 12/02/23 06:58: WBC 14.5 H, RBC 3.67 L, Hgb 10.2 L, Hct 32.0 L, MCV 87.2, MCH 27.8, MCHC 31.9 L, RDW Std Deviation 50.4 H, RDW Coeff of Maia 15.9 H, Plt Count 360, MPV 10.6, Sodium 135 L, Potassium 4.2, Chloride 100, Carbon Dioxide 29.0, Anion Gap 6, BUN 39 H, Creatinine 0.96, Estim Creat Clear Calc 65.52, Est GFR (MDRD) Af Amer 101, Est GFR (MDRD) Non-Af 84, BUN/Creatinine Ratio 40.8 H, Glucose 214 H, Calcium 9.0, Total Bilirubin 0.60, AST 234 H, ALT 316 H, Alkaline Phosphatase 106, Total Protein 7.1, Albumin 2.4 L, Globulin 4.7 H, Albumin/Globulin Ratio 0.5 L Imaging Radiology Impression Abdomen/Pelvis CT 12/01/23 17:15 IMPRESSION: 1. Moderate to high-grade small bowel obstruction, possibly due to adhesions. 2. Cholelithiasis. 3. Hepatic steatosis. Electronically Signed: Alta Lemus MD at 18:41 EDT Reading Location ID and State: [id number] / Tel , Service support , ADDENDUM: 12/01/23 1903 IMPRESSION: 1. Moderate to high-grade small bowel obstruction, possibly due to adhesions. 2. Cholelithiasis. 3. Hepatic steatosis. N.B. : Dwayne Marshall NP, confirmed on 12/01/2023 18:56:12 (ET) that the referring physician received the results and does not require a verbal communication. Electronically Signed: Alta Lemus MD at 18:41 EDT Reading Location ID and State: [id number] / Tel , Service support , KUB X-Ray 12/01/23 19:50 IMPRESSION: NG tube tip projecting cephalad over the stomach fundus. Minimally prominent air-filled small bowel loops midabdomen. Consider upright or crosstable lateral views to assess for air-fluid levels if clinically concerned. No appreciable free air in this limited assessment. Electronically Signed: Etienne Whyte DO at 21:06 EDT ,
--- NOTE | 2023-12-02 10:31 | CASEMGMT ---
According to [facility] website, the following tertiary facilities are in network: [facility], [place], [facility], [facility], [facility], [facility] and .
[2023-12-02] MEDS: Pantoprazole Sodium 40 MG in 0.9% Normal Saline (100mL MB+) 100 ML 330 MG IV (12:23)
[2023-12-02] MEDS: Enoxaparin 40 MG/0.4 ML Syringe SC (12:29)
[2023-12-02 12:49] LABS: Bedside Glucose 202 mg/dL (74-106)
[2023-12-02] MEDS: Ondansetron 4 MG/2 ML Vial IV (14:44)
[2023-12-02] MEDS: HYDROmorphone 0.5 MG/0.5 ML SYRINGE IV ×2 (14:44→20:50)
--- NOTE | 2023-12-02 15:07 | NURSING ---
awaiting call from [facility] fro bed (d/c delay)
--- NOTE | 2023-12-02 18:52 | NURSING ---
report given to LEONORA Sanders
[2023-12-02] MEDS: proCHLORPERazine 10 MG/2 ML Vial 5 MG IV (20:49)
== END 2023-12-02 21:20 | disposition short-term general hospital (02) | DRG 388 ==
LOC: ED 12-02 01:42 → MS3 12-02 02:04
PROVIDERS: Nurse Practitioner; Admitting Provider Hospitalist; Emergency Provider Emergency Medicine; PCP Family Medicine; Visit Provider Internal Medicine
DX: K56.50 Intestinal adhesions [bands], unspecified as to partial versus complete obstruction (principal); I77.71 Dissection of carotid artery; N17.9 Acute kidney failure, unspecified; I69.354 Hemiplegia and hemiparesis following cerebral infarction affecting left non-dominant side; E11.40 Type 2 diabetes mellitus with diabetic neuropathy, unspecified; D64.9 Anemia, unspecified; E11.65 Type 2 diabetes mellitus with hyperglycemia; Z79.4 Long term (current) use of insulin; Z93.2 Ileostomy status; I10 Essential (primary) hypertension; K76.0 Fatty (change of) liver, not elsewhere classified; F32.A Depression, unspecified; E78.00 Pure hypercholesterolemia, unspecified; I25.10 Atherosclerotic heart disease of native coronary artery without angina pectoris; E86.0 Dehydration; K80.20 Calculus of gallbladder without cholecystitis without obstruction; K21.9 Gastro-esophageal reflux disease without esophagitis; M19.90 Unspecified osteoarthritis, unspecified site; G47.33 Obstructive sleep apnea (adult) (pediatric); J30.2 Other seasonal allergic rhinitis; R53.81 Other malaise; Z92.3 Personal history of irradiation; Z95.5 Presence of coronary angioplasty implant and graft; G47.00 Insomnia, unspecified; R74.01 Elevation of levels of liver transaminase levels; Z79.02 Long term (current) use of 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/antiplatelets; Z79.82 Long term (current) use of aspirin; Z90.49 Acquired absence of other specified parts of digestive tract; Z95.1 Presence of aortocoronary bypass graft; Z85.038 Personal history of other malignant neoplasm of large intestine; Z99.89 Dependence on other enabling machines and devices; Z79.899 Other long term (current) drug therapy; Z79.01 Long term (current) use of anticoagulants; Z92.21 Personal history of antineoplastic chemotherapy
CPT/HCPCS: 74018; 74177; 80053; 81001; 82962; 83690; 85025; 85027; 85610; 94668; 99285; J7120; P9612; Q9967; A4216; J2405

== ENCOUNTER → 2024-01-17 | Outpatient (REF) | payer BC, MEDICARE, OTHER, SELFPAY ==
[2024-01-17 07:07] LABS: Mucous, Urine 0 SEEN /hpf (<or=2+); Squamous Epithelial Cells - UA 0 SEEN /hpf (0-5)
[2024-01-17 07:42] LABS: AST(SGOT) 31 U/L (15-37); Alanine Aminotransfer ALT/SGPT 33 U/L (16-61); Albumin, Serum 2.2 g/dL (3.2-5.0); Alkaline Phosphatase 399 U/L (45-117); Bilirubin, Direct 0.21 mg/dL (0.00-0.30); GGTP 279 U/L (15-85); Globulin 5.7 g/dL (2.2-4.2); Protein, Total 7.9 g/dL (6.4-8.2)
[2024-01-17 07:50] LABS: Erythrocyte Sedimentation Rate 75 mm/hr (0-20)
[2024-01-17 07:51] LABS: Absolute Neutrophil Count 6.2 X10^3/uL (2.0-7.7); Basophil# 0.03 X10^3/uL; Basophil% 0.4 % (0-1); Eosinophil# 0.07 X10^3/uL; Eosinophils% 0.9 % (0-5); Hemoglobin 11.7 g/dL (13.0-16.5); Lymphocyte % 10.3 % (19-41); Mean Corp Hgb Conc 31.6 g/dL (32-36); Mean Corpuscular Hgb 27.9 pg (27.0-32.0); Mean Corpuscular Volume 88.1 fL (80-94); Mean Platelet Vol. 9.8 fl (6.2-12.0); NRBC Flagged by Analyzer 0 % (0-5); Neutrophil # 6.17 X10^3/uL (2.7-7.7); Platelet Count 510 K/mm3 (150-450); RBC Distribution Width CV 15.9 % (11.6-14.6); RBC Distribution Width SD 51.5 fl (35.1-43.9); White Blood Count 7.8 K/mm3 (4.4-11.0)
[2024-01-17 08:15] LABS: Color, Urine Yellow (Yellow); Glucose, Dipstick Normal (Normal); Ketone-Dipstick Negative (Negative); Leukocyte Esterase-Dipstick 500 /ul (Negative); Nitrite-Dipstick Negative (Negative); Occult Blood-Urine 50 /ul (Negative); Protein-Dipstick 30 mg/dl (Negative); Specific Gravity, Urine 1.015 (1.002-1.030); Urine Bilirubin Dipstick Negative (Negative); Urine Clarity Sl. Cloudy (Clear); Urine Urobilinogen Normal (Normal)
[2024-01-17 08:55] LABS: Bacteria 1+ /hpf (None Seen); Red Blood Cells-Urine 0-5 SEEN /hpf (0-5); White Blood Cells 25-50 SEEN /hpf (0-5); Yeast-Urine 2+ /hpf (None Seen)
== END ==
LOC: OLS.WHLTCC 05:00
PROVIDERS: PCP Family Medicine; Visit Provider Internal Medicine
DX: C20 Malignant neoplasm of rectum (principal); M62.561 Muscle wasting and atrophy, not elsewhere classified, right lower leg; M62.562 Muscle wasting and atrophy, not elsewhere classified, left lower leg; R26.2 Difficulty in walking, not elsewhere classified; R33.9 Retention of urine, unspecified
CPT/HCPCS: 36415; 80076; 81001; 82977; 85025; 85652; 86140

== ENCOUNTER 2024-01-31 16:05 | Inpatient (IN) | payer BC, MEDICARE, OTHER, SELFPAY ==
[2024-01-31 16:06] VITALS: BP 134/70; PULSE 87; RESP 12; TEMP 36.3; O2SAT 97; BMI 19.8
--- NOTE | 2024-01-31 16:18 | EKG12_ITS ---
Test Reason : ALT LOC Blood Pressure : / mmHG Vent. Rate : 085 BPM Atrial Rate : 085 BPM P-R Int : 156 ms QRS Dur : 080 ms QT Int : 358 ms P-R-T Axes : 047 023 075 degrees QTc Int : 426 ms Normal sinus rhythm with sinus arrhythmia Normal ECG Confirmed by Etienne Darden ([id number]), social media editor RY AU ([id number]) on 02/01/2024 11:11:35 AM Referred By: Confirmed By:Etienne Darden
--- NOTE | 2024-01-31 16:20 | EX.ED.DYSGE1 ---
HPI History of Present Illness Chief Complaint: Alt LOC Detail of Chief Complaint: Mental status change Informant: patient Narrative Narrative: Patient presents emergency department with complaint of mental status change today. Patient currently in a shelter. Nurse practitioner called to let me know she was sending the patient in. Patient has history of colon cancer with colostomy. He apparently last month had a bowel obstruction when at the [facility] where he had surgery now and has ileostomy. Patient today was diagnosed with a UTI. Has been more confused. I am also told that his liver enzymes have been elevated. Patient denies any abdominal pain. He had no vomiting. He denies chest pain. He denies fevers or chills. 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 Cancer Cardiology follow-up encounter Carotid artery disease Colorectal cancer CPAP (continuous positive airway pressure) dependence CVA (cerebral vascular accident) Depression Diabetic neuropathy Dietary restriction Dyslipidemia Dysphagia Essential hypertension Gastric reflux GERD (gastroesophageal reflux disease) High cholesterol History of echocardiogram History of heart attack History of pain when walking History of stress test HTN (hypertension) Injury of back Injury of head and neck 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 Leg cramps Loss of hearing Non-smoker Obstructive sleep apnea Orthostatic hypotension ALEJANDRO (obstructive sleep apnea) Peripheral vascular occlusive disease Restless legs Restrictive lung disease Shortness of breath on exertion Syncope Type 2 diabetes mellitus Walker as ambulation aid Wears glasses Home Medications ?Medication ?Instructions ?Recorded ?Last Taken ?Type aspirin 81 mg chewable tablet 81 mg PO DAILY heart health 03/20/16 03/10/23 History insulin lispro 100 unit/mL See Rx Instructions subcut 09/26/21 03/10/23 History subcutaneous pen (Humalog KwikPen .COMPLEX diabetes (U-100) Insulin) duloxetine 60 mg capsule,delayed 30 mg (1/2 x 60 mg) PO DAILY 03/12/23 03/10/23 Rx release depression #30 caps clopidogrel 75 mg tablet 75 mg PO DAILY blood thinner #90 10/10/23 Unknown Rx tabs atorvastatin 40 mg tablet 40 mg PO QHS anti lipid 12/01/23 Unknown History mirtazapine 7.5 mg tablet 7.5 mg PO QHS anxiety 12/01/23 Unknown History pantoprazole 40 mg tablet,delayed 40 mg PO DAILY GERD 12/01/23 Unknown History release acetaminophen 325 mg capsule 650 mg PO Q6H pain 12/02/23 Unknown History dextrose 40 % oral gel (Glucose 10 g PO Q15M PRN hypoglycemia 12/02/23 Unknown History Gel) nutrition tx glu 120 ml PO TID diabetes 12/02/23 Unknown History intol,lac-free,soy-fiber 0.07 gram-0.8 kcal/mL liquid (Boost Glucose Control) ondansetron 4 mg disintegrating 4 mg PO Q4H PRN nausea 12/02/23 Unknown History tablet sodium chloride 0.9 % 100 ea IV .continuous fluid 12/02/23 Unknown History imbalance amlodipine 10 mg tablet 10 mg PO DAILY BLOOD PRESSURE 01/31/24 Unknown History calcium carbonate (Tums) 300 mg PO TID PRN dyspepsia 01/31/24 Unknown History carvedilol 25 mg tablet 25 mg PO BID 01/31/24 Unknown History clotrimazole 1 % topical cream 1 applic topical BID 01/31/24 Unknown History insulin glargine 100 unit/mL (3 36 unit subcut DAILY 01/31/24 Unknown History mL) subcutaneous pen ipratropium 0.5 mg-albuterol 3 mg 3 ml inhalation Q6H PRN shortness 01/31/24 Unknown History (2.5 mg base)/3 mL nebulization of breath or wheezing soln melatonin 3 mg tablet 3 mg PO QHS 01/31/24 Unknown History menthol 4 % topical gel (Biofreeze 1 applic topical BID PRN pain 01/31/24 Unknown History (menthol)) nitrofurantoin 100 mg PO BID 01/31/24 Unknown History monohydrate/macrocrystals 100 mg capsule (Macrobid) oxycodone 5 mg tablet 2.5 mg PO Q6H PRN pain 01/31/24 Unknown History simethicone 125 mg chewable tablet 125 mg PO 4X/DAY PRN abdominal 01/31/24 Unknown History distention sodium chloride 0.65 % nasal spray 2 spray intranasal Q4H PRN dry 01/31/24 Unknown History aerosol (Ducor Saline) nasal passages tamsulosin 0.4 mg capsule (Flomax) 0.8 mg PO QHS 01/31/24 Unknown History Allergy/AdvReac Type Severity Reaction Status Date / Time No Known Allergies Allergy Verified 11/29/23 11:30 Family History Father CAD (coronary artery disease) Hypertension Cancer leukemia Diabetes Heart disease High cholesterol Mother CVA (cerebral vascular accident) Diabetes Breast cancer Brother Diabetes Surgical History Excision Max.Zygoma Face Tumor H/O coronary artery bypass surgery (05/30/08) History of bilateral cataract extraction History of coronary artery stent placement (01/02/15) History of eye surgery History of herniorrhaphy History of left heart catheterization (LHC) (~01/22/15) History of right and left heart catheterization (LHC) (~12/25/14) History of right-sided carotid endarterectomy History of tonsillectomy PTCA Left Anterior Tibial and Paroneal Artery Social History Smoking Status: Never smoker alcohol intake: never substance use type: does not use caffeine: Yes what type of physical activity do you participate in: none ROS ROS ED Review of Systems ROS Unobtainable: other Constitutional Constitutional ED: Reports lethargy; Denies chills, fever(s), sweats or weight loss Eyes Eyes: Denies blurry vision, change in vision or diplopia ENT ENT ED: Denies rhinorrhea or sore throat Cardiovascular Cardiovascular: Denies chest pain, orthopnea or racing heartbeat Respiratory/Chest Respiratory/Chest: Reports dyspnea on exertion; Denies cough, dyspnea, orthopnea or sputum Gastrointestinal Gastrointestinal: Denies abdominal pain, diarrhea, nausea or vomiting Genitourinary Genitourinary ED: Denies dysuria, hematuria or urinary frequency Musculoskeletal Musculoskeletal: Denies arthralgias, back pain, myalgias or neck pain Integumentary Denies abscess, Abrasions or rash Neurologic Neurologic: Reports other Details: Mental status change ; Denies headache(s) or weakness Psychiatric Psychiatric: Denies anxiety, depression or suicidal thoughts Endocrine Endocrinology: Denies polydipsia, polyphagia or polyuria Hematologic/Lymphatic Hematologic/Lymphatic: Denies easy bleeding, easy bruising or lymphadenopathy Allergic/Immunologic Allergic/Immunologic ED: Denies mouth swelling, tongue swelling or urticaria EXAM Physical Exam Const Vital Signs: 01/31/24 16:06 Temperature 97.4 F L Temperature Source Temporal Pulse Rate 87 Respiratory Rate 12 Blood Pressure 134/70 H Blood Pressure Mean 91 Pulse Ox 97 Oxygen Delivery Method Room Air Positive well nourished and well developed General Appearance ED: well developed and NAD HEENT Reports TM's clear and moist mucous membranes normocephalic and atraumatic; Negative for trauma or tenderness Tympanic Membrane ED: Yes TM's clear Eyes PERRL and EOMs intact bilaterally General Eye ED: Negative for pale conjunctiva or scleral icterus Neck no lymphadenopathy, supple and no JVD General: Negative for tenderness Chest Wall inspection of chest normal and palpation of chest normal Chest: Negative for tenderness Resp normal respiratory effort and clear to auscultation bilaterally Effort and Inspection: Negative for respiratory distress or pain with movement Auscultation: Negative for rhonchi, wheezes or diminished lung sounds Cardio regular rate, regular rhythm, S1 normal heart sound, S2 normal heart sound and no murmurs Peripheral Pulses: pulses 2+ throughout GI normal to inspection, nondistended, normoactive bowel sounds, soft to palpation, non-tender, non-distended and no masses Back/Spine no CVA tenderness and no thoracic nor lumbar tenderness Extremity normal to inspection General Extremety ED: Negative for edema General Extremity: Negative for edema Neuro oriented x3, CN's II-XII intact bilaterally, no sensory deficits noted and gait normal Sensorium / Orientation: awake, alert, oriented to person, oriented to place and oriented to time Motor Exam: strength 5/5 throughout and strength abnormal Psych mental status grossly normal Skin no rashes or lesions noted and no wounds MDM MDM MDM Narrative Medical decision making narrative: Patient presents to the emergency department with complaint of mental status change today. IV line established. Blood cultures ordered. CBC with differential obtained showed an elevated white count of 13.3 with hemoglobin 11 and platelet count of 367. Chemistries unremarkable. BUN 33 and creatinine 1.3. LFTs were elevated with AST of 61 and an ALT of 71 as well as an alkaline phosphatase of 754. Lactate was elevated 2.7. BUN 33 and creatinine 1.3. Urinalysis was positive for nitrites and 500 leukocyte esterase and pending microscopic. CT scan of the brain without contrast showed chronic changes. Chest x-ray was unremarkable. Patient was started on Rocephin 1 g IV. Patient has confusion and lactic acidosis with concern for UTI. Some of his liver enzyme elevation appears to be chronic. He has no abdominal pain currently. Will discuss case with hospitalist to evaluate patient for admission. He also has a low sodium of 125 and he is receiving normal saline. Lab Data Attestation: I reviewed the patient's lab results. Labs: Laboratory Results - last 24 hr 01/31/24 16:32 WBC 13.3 H RBC 3.95 L Hgb 11.1 L Hct 34.1 L MCV 86.3 MCH 28.1 MCHC 32.6 RDW Std Deviation 51.0 H RDW Coeff of Maia 16.0 H Plt Count 367 MPV 9.8 Immature Gran % (Auto) 0.500 Neut % (Auto) 88.8 H Lymph % (Auto) 4.4 L Norman % (Auto) 6.0 Eos % (Auto) 0.1 Baso % (Auto) 0.2 Absolute Neuts (auto) 11.8 H Absolute Lymphs (auto) 0.59 L Nucleated RBC % 0 Sodium 125 L Potassium 4.7 Chloride 93 L Carbon Dioxide 23.0 Anion Gap 9 BUN 33 H Creatinine 1.31 H Estim Creat Clear Calc 43.74 Est GFR (MDRD) Af Amer 70 Est GFR (MDRD) Non-Af 58 L BUN/Creatinine Ratio 25.2 H Glucose 321 H Lactic Acid 2.7 H* Calcium 9.4 Total Bilirubin 0.50 AST 61 H ALT 71 H Alkaline Phosphatase 754 H Ammonia 22.0 Troponin I High Sens 15 Total Protein 7.8 Albumin 2.0 L Globulin 5.8 H Albumin/Globulin Ratio 0.3 L Lipase 17 Urine Color Yellow Urine Clarity Turbid Urine pH 5.0 Ur Specific [place] 1.020 Urine Protein 500 H Urine Glucose (UA) Normal Urine Ketones Negative Urine Occult Blood 250 H Urine Nitrite Positive H Urine Bilirubin Negative Urine Urobilinogen Normal Ur Leukocyte Esterase 500 H Urine RBC 0 SEEN Urine WBC >100 SEEN Ur Squamous Epith Cells 0 SEEN Urine Bacteria 2+ Urine Mucus 0 SEEN Radiography Diagnostic Testing: Clinical Impression(s) from Imaging Studies Brain CT 01/31/24 16:21 IMPRESSION: No CT evidence of acute intracranial hemorrhage or injury. Sequela of multiple prior infarcts as above without significant change from prior CT. Moderate senescent changes. Electronically Signed: Talon Lacey MD at 17:27 EDT , Chest X-Ray 01/31/24 16:58 IMPRESSION: No radiographic evidence of acute cardiopulmonary disease. Electronically Signed: Talon Lacey MD at 17:17 EDT , EKG Initial EKG: Attestation: I personally reviewed and interpreted this EKG as follows: Comments: Sinus rhythm with ventricular rate of 85 bpm with no acute ST segment changes Discharge Plan Dx/Rx/DC Orders Clinical Impression: Acute UTI, Acute alteration in mental status, Acute hyponatremia, Acidosis, lactic, Elevated liver enzymes Disposition Disposition: Acute Care [facility]
--- NOTE | 2024-01-31 16:21 | CT_ITS ---
INDICATION: mental status change EXAMINATION: CT BRAIN - CT Head or Brain W/O Contrast Injection TECHNIQUE: Multiple axial images were obtained of the head without intravenous contrast. A radiation dose optimization technique was used for this scan. IV Contrast dosage and agent: None. COMPARISON: [November 29 2023] FINDINGS: BRAIN PARENCHYMA: No intra- or extra-axial hemorrhage. No evidence of acute infarct. Encephalomalacia unchanged right cerebellum from prior infarct. Bilateral basal ganglia lacunar infarcts and right superior frontal and parietal lacunar infarcts, not significantly changed from November 29, 2023 No intracranial mass or mass effect. Mild periventricular and subcortical white matter hypodense chronic small vessel white matter ischemic change. There is preservation of the snowden/white matter interface. Posterior fossa structures are unremarkable. CSF SPACES: Moderate global cerebral volume loss. No hydrocephalus. Basal cisterns are patent. CALVARIUM, SKULL BASE, PARANASAL SINUSES AND MASTOID AIR CELLS: No acute osseous finding. Paransasal sinuses are clear. Mastoid air cells are clear. ORBITS: Both globes, extraocular muscles, optic nerves and retrobulbar fat appear unremarkable. ASPECTS Score for Acute Strokes: 10 CT/Brain/Head without Contrast IMPRESSION: No CT evidence of acute intracranial hemorrhage or injury. Sequela of multiple prior infarcts as above without significant change from prior CT. Moderate senescent changes. Electronically Signed: Talon Lacey MD at 17:27 EDT ,
[2024-01-31 16:39] LABS: Mucous, Urine 0 SEEN /hpf (<or=2+); Red Blood Cells-Urine 0 SEEN /hpf (0-5); Squamous Epithelial Cells - UA 0 SEEN /hpf (0-5)
[2024-01-31 16:44] LABS: Color, Urine Yellow (Yellow); Glucose, Dipstick Normal (Normal); Ketone-Dipstick Negative (Negative); Leukocyte Esterase-Dipstick 500 /ul (Negative); Nitrite-Dipstick Positive (Negative); Occult Blood-Urine 250 /ul (Negative); Protein-Dipstick 500 mg/dl (Negative); Urine Bilirubin Dipstick Negative (Negative); Urine Clarity Turbid (Clear); Urine Urobilinogen Normal (Normal)
[2024-01-31] MEDS: 0.9% Normal Saline (500mL Bag) 500 ML 1000 ML IV (16:44)
[2024-01-31 16:45] LABS: Absolute Lymphocyte Count 0.59 X10^3/uL (0.83-4.51); Absolute Neutrophil Count 11.8 X10^3/uL (2.0-7.7); Basophil# 0.02 X10^3/uL; Basophil% 0.2 % (0-1); Eosinophil# 0.01 X10^3/uL; Eosinophils% 0.1 % (0-5); Hematocrit 34.1 % (40-54); Hemoglobin 11.1 g/dL (13.0-16.5); Lymphocyte # 0.59 X10^3/ul (0.83-4.51); Lymphocyte % 4.4 % (19-41); Mean Corp Hgb Conc 32.6 g/dL (32-36); Mean Corpuscular Hgb 28.1 pg (27.0-32.0); Mean Corpuscular Volume 86.3 fL (80-94); Mean Platelet Vol. 9.8 fl (6.2-12.0); NRBC Flagged by Analyzer 0 % (0-5); Neutrophil % 88.8 % (47-70); POSITIVE DIFFERENTIAL YES; Platelet Count 367 K/mm3 (150-450); Red Blood Count 3.95 M/mm3 (4.6-6.2); White Blood Count 13.3 K/mm3 (4.4-11.0)
--- NOTE | 2024-01-31 16:58 | RAD_ITS ---
INDICATION: weakness EXAMINATION/TECHNIQUE: X-RAY - XR Chest 1 View COMPARISON: November 11, 2023. FINDINGS: LINES/DEVICES: None. LUNGS: No consolidation, edema or effusion. No pneumothorax. MEDIASTINUM AND CARDIOVASCULAR STRUCTURES: Cardiac silhouette not enlarged. Aortic atherosclerosis. BONES AND SOFT TISSUES: Midline sternotomy wires are intact. Left humeral osseous remodeling. RAD/Chest 1 View (Portable) IMPRESSION: No radiographic evidence of acute cardiopulmonary disease. Electronically Signed: Talon Lacey MD at 17:17 EDT ,
[2024-01-31 17:04] LABS: ALB/GLOB Ratio 0.3 RATIO (0.9-2.4); AST(SGOT) 61 U/L (15-37); Alanine Aminotransfer ALT/SGPT 71 U/L (16-61); Alkaline Phosphatase 754 U/L (45-117); Anion Gap 9 (5-15); BUN 33 mg/dL (7-18); BUN/Creat Ratio 25.2 RATIO (10-20); Calcium,Total 9.4 mg/dL (8.5-10.1); Chloride 93 mmol/L (98-107); Creatinine, Serum 1.31 mg/dL (0.70-1.30); EST Glomerular Filtration Rate 58 mL/min (>60); Est Glom Filt Rate - Afr Amer 70 mL/min (>60); Estimated Creatinine Clearance 43.74 ml/min; Globulin 5.8 g/dL (2.2-4.2); Glucose 321 mg/dL (74-106); Lipase 17 U/L (13-75); Potassium 4.7 mmol/L (3.5-5.1); Protein, Total 7.8 g/dL (6.4-8.2); Sodium Level 125 mmol/L (136-145); Troponin-I HS 15 pg/mL (3.0-78.0)
[2024-01-31 17:23] LABS: Lactic Acid 2.7 mmol/L (0.4-1.9)
[2024-01-31 17:30] LABS: Bacteria 2+ /hpf (None Seen); White Blood Cells >100 SEEN /hpf (0-5)
[2024-01-31 18:05] VITALS: BP 121/61; PULSE 80; RESP 19; O2SAT 96
[2024-01-31] MEDS: Ceftriaxone 1 GM/50 ML BAG IV (18:08)
[2024-01-31] MEDS: 0.9% Normal Saline (1000mL) 1,000 ML 150 ML IV (18:08)
--- NOTE | 2024-01-31 18:24 | PCM.HP.STD ---
HPI - General General Date of Admission: 01/31/24 Date of Service: 01/31/24 Chief Complaint: Lethargy, somnolence, and weakness HPI Narrative MITCH VEGA, is a 68 M who presents to the emergency room at [facility] from an extended care facility. Patient is undergoing inpatient rehab due to a recent ileostomy, he has not been eating or drinking well at the long term and he has not been ambulatory for the last 3 weeks. Patient had a past history of colorectal cancer and has a colostomy also which was placed quite sometime ago. He was in the hospital at the [facility] for a small bowel obstruction/? Ischemic bowel and underwent an ileostomy and small bowel resection-his who was in the room at the time of my examination today gave me the medical history due to the patient's lethargy and somnolence. According the patient's , he was in the hospital at the [facility] for several weeks after the surgery. Chemistry profile showed a low sodium at 125, chloride was 93, creatinine was elevated at 1.31 and BUN was 33. Patient's lactic acid was 2.7, glucose was 321, and the patient's liver enzymes were elevated with an AST of 61, ALT of 71, and an alkaline phosphatase of 754. Patient CBC was remarkable for elevated white blood cell count at 13.3, hemoglobin was 11.1. Patient's urinalysis indicated a urinary tract infection. No imaging studies were done on the gallbladder, liver, or pancreas. Patient had a CT of the abdomen done in November 2023 at this hospital which showed multiple gallstones and possible fatty liver, at that time he had a bowel obstruction and he was transferred to [facility] for further care at that time. Patient will be admitted to [facility], he was given IV Rocephin in the ER and this will be continued, IV fluids will be administered, I have ordered a limited ultrasound of the abdomen to be done and the patient will go directly up to the floor after this is done. 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 Cancer Cardiology follow-up encounter Carotid artery disease Colorectal cancer CPAP (continuous positive airway pressure) dependence CVA (cerebral vascular accident) Depression Diabetic neuropathy Dietary restriction Dyslipidemia Dysphagia Essential hypertension Gastric reflux GERD (gastroesophageal reflux disease) High cholesterol History of echocardiogram History of heart attack History of pain when walking History of stress test HTN (hypertension) Injury of back Injury of head and neck 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 Leg cramps Loss of hearing Non-smoker Obstructive sleep apnea Orthostatic hypotension ALEJANDRO (obstructive sleep apnea) Peripheral vascular occlusive disease Restless legs Restrictive lung disease Shortness of breath on exertion Syncope Type 2 diabetes mellitus Walker as ambulation aid Wears glasses Home Medications ?Medication ?Instructions ?Recorded ?Last Taken ?Type aspirin 81 mg chewable tablet 81 mg PO DAILY heart health 03/20/16 03/10/23 History insulin lispro 100 unit/mL 1 sliding scale dose subcut TIDCM 09/26/21 03/10/23 History subcutaneous pen (Humalog KwikPen diabetes (U-100) Insulin) duloxetine 60 mg capsule,delayed 30 mg (1/2 x 60 mg) PO DAILY 03/12/23 03/10/23 Rx release depression #30 caps clopidogrel 75 mg tablet 75 mg PO DAILY blood thinner #90 10/10/23 Unknown Rx tabs atorvastatin 40 mg tablet 40 mg PO QHS anti lipid 12/01/23 Unknown History mirtazapine 7.5 mg tablet 7.5 mg PO QHS anxiety 12/01/23 Unknown History pantoprazole 40 mg tablet,delayed 40 mg PO DAILY GERD 12/01/23 Unknown History release acetaminophen 325 mg capsule 650 mg PO Q6H pain 12/02/23 Unknown History dextrose 40 % oral gel (Glucose 10 g PO Q15M PRN hypoglycemia 12/02/23 Unknown History Gel) nutrition tx glu 120 ml PO TID diabetes 12/02/23 Unknown History intol,lac-free,soy-fiber 0.07 gram-0.8 kcal/mL liquid (Boost Glucose Control) ondansetron 4 mg disintegrating 4 mg PO Q4H PRN nausea 12/02/23 Unknown History tablet sodium chloride 0.9 % 100 ea IV .continuous fluid 12/02/23 Unknown History imbalance amlodipine 10 mg tablet 10 mg PO DAILY BLOOD PRESSURE 01/31/24 Unknown History calcium carbonate (Tums) 300 mg PO TID PRN dyspepsia 01/31/24 Unknown History carvedilol 25 mg tablet 25 mg PO BID 01/31/24 Unknown History clotrimazole 1 % topical cream 1 applic topical BID 01/31/24 Unknown History insulin glargine 100 unit/mL (3 36 unit subcut DAILY 01/31/24 Unknown History mL) subcutaneous pen ipratropium 0.5 mg-albuterol 3 mg 3 ml inhalation Q6H PRN shortness 01/31/24 Unknown History (2.5 mg base)/3 mL nebulization of breath or wheezing soln melatonin 3 mg tablet 3 mg PO QHS 01/31/24 Unknown History menthol 4 % topical gel (Biofreeze 1 applic topical BID PRN pain 01/31/24 Unknown History (menthol)) nitrofurantoin 100 mg PO BID 01/31/24 Unknown History monohydrate/macrocrystals 100 mg capsule (Macrobid) oxycodone 5 mg tablet 2.5 mg PO Q6H PRN pain 01/31/24 Unknown History simethicone 125 mg chewable tablet 125 mg PO 4X/DAY PRN abdominal 01/31/24 Unknown History distention sodium chloride 0.65 % nasal spray 2 spray intranasal Q4H PRN dry 01/31/24 Unknown History aerosol (S[place]ickley Saline) nasal passages tamsulosin 0.4 mg capsule (Flomax) 0.8 mg PO QHS 01/31/24 Unknown History Allergy/AdvReac Type Severity Reaction Status Date / Time No Known Allergies Allergy Verified 11/29/23 11:30 Family History Father CAD (coronary artery disease) Hypertension Cancer leukemia Diabetes Heart disease High cholesterol Mother CVA (cerebral vascular accident) Diabetes Breast cancer Brother Diabetes Surgical History Excision Max.Zygoma Face Tumor H/O coronary artery bypass surgery (05/30/08) History of bilateral cataract extraction History of coronary artery stent placement (01/02/15) History of eye surgery History of herniorrhaphy History of left heart catheterization (LHC) (~01/22/15) History of right and left heart catheterization (LHC) (~12/25/14) History of right-sided carotid endarterectomy History of tonsillectomy PTCA Left Anterior Tibial and Paroneal Artery Social History (Reviewed 12/01/23 @ 16:43 by Kathy Adams Smoking Status: Never smoker alcohol intake: never substance use type: does not use caffeine: Yes what type of physical activity do you participate in: none ROS ROS Narrative Patient is weak and lethargic, he can answer simple questions appropriately but has a difficult time staying awake to carry on a conversation. Medical information was obtained from the patient's who was in the room at the time my examination. Vital Signs Vital Signs Vital Signs: 01/31/24 16:06 01/31/24 18:05 Temperature 97.4 F L Temperature Source Temporal Pulse Rate 87 80 Respiratory Rate 12 19 H Blood Pressure 134/70 H 121/61 H Blood Pressure Mean 91 81 Pulse Ox 97 96 Oxygen Delivery Method Room Air Room Air Weight Weight: 55.747 kg Body Mass Index (BMI) 19.8 Physical Exam Const no apparent distress Constitutional Narrative: Patient is somnolent, he does answer simple questions appropriately, he has difficulty staying awake to carry on a conversation, patient appears unwell and cachectic General Appearance: cooperative, well kempt and well developed Orientation / Consciousness: awake, oriented to person and oriented to place HEENT normocephalic, head/scalp atraumatic, hearing grossly normal bilaterally and moist oral mucous membranes Eyes PERRL, EOMs intact bilaterally and conjunctivae normal Neck supple, no JVD, thyroid normal and no carotid bruits General: trachea midline Resp normal respiratory effort, no retractions, no use of accessory muscles and clear to auscultation bilaterally Auscultation: Negative for rales, rhonchi or wheezes Cardio regular rate, regular rhythm, S1 normal heart sound, S2 normal heart sound, no murmurs, no rub and no gallops GI GI Narrative: Patient has an ileostomy and a midline colostomy, bowel sounds are present over the abdomen, abdomen is nontender to palpation, abdomen is nondistended. Extremity no clubbing, cyanosis or edema Skin no rashes or lesions noted General Skin Exam: no breakdown Neuro CN's II-XII intact bilaterally, moves all extremities, no focal motor deficits and no sensory deficits noted Sensorium / Orientation: awake, alert, oriented to person and oriented to place Speech: speech normal Psych Psych Narrative: Patient appears lethargic and somnolent Results Lab / Micro Data 01/31/24 16:32 01/31/24 16:32 Labs: Laboratory Results - last 24 hr 01/31/24 16:32: WBC 13.3 H, RBC 3.95 L, Hgb 11.1 L, Hct 34.1 L, MCV 86.3, MCH 28.1, MCHC 32.6, RDW Std Deviation 51.0 H, RDW Coeff of Maia 16.0 H, Plt Count 367, MPV 9.8, Immature Gran % (Auto) 0.500, Neut % (Auto) 88.8 H, Lymph % (Auto) 4.4 L, [place] % (Auto) 6.0, Eos % (Auto) 0.1, Baso % (Auto) 0.2, Absolute Neuts (auto) 11.8 H, Absolute Lymphs (auto) 0.59 L, Nucleated RBC % 0, Sodium 125 L, Potassium 4.7, Chloride 93 L, Carbon Dioxide 23.0, Anion Gap 9, BUN 33 H, Creatinine 1.31 H, Estim Creat Clear Calc 43.74, Est GFR (MDRD) Af Amer 70, Est GFR (MDRD) Non-Af 58 L, BUN/Creatinine Ratio 25.2 H, Glucose 321 H, Lactic Acid 2.7 H*, Calcium 9.4, Total Bilirubin 0.50, AST 61 H, ALT 71 H, Alkaline Phosphatase 754 H, Ammonia 22.0, Troponin I High Sens 15, Total Protein 7.8, Albumin 2.0 L, Globulin 5.8 H, Albumin/Globulin Ratio 0.3 L, Lipase 17, Urine Color Yellow, Urine Clarity Turbid, Urine pH 5.0, Ur Specific [place] 1.020, Urine Protein 500 H, Urine Glucose (UA) Normal, Urine Ketones Negative, Urine Occult Blood 250 H, Urine Nitrite Positive H, Urine Bilirubin Negative, Urine Urobilinogen Normal, Ur Leukocyte Esterase 500 H, Urine RBC 0 SEEN, Urine WBC >100 SEEN, Ur Squamous Epith Cells 0 SEEN, Urine Bacteria 2+, Urine Mucus 0 SEEN Imaging Radiology Impression Brain CT 01/31/24 16:21 IMPRESSION: No CT evidence of acute intracranial hemorrhage or injury. Sequela of multiple prior infarcts as above without significant change from prior CT. Moderate senescent changes. Electronically Signed: Talon Lacey MD at 17:27 EDT , Chest X-Ray 01/31/24 16:58 IMPRESSION: No radiographic evidence of acute cardiopulmonary disease. Electronically Signed: Talon Lacey MD at 17:17 EDT , Assessment & Plan Assessment/Plan (1) Acute UTI: PLAN: Plan 1. Acute cystitis-patient will be admitted to [facility], he was placed on IV Rocephin, cultures are pending at this time #2 metabolic encephalopathy secondary to acute cystitis and dehydration-again patient is somnolent but answers simple questions appropriately #3 dehydration-patient's creatinine is elevated, his sodium is low and his chloride is low, he will be given IV normal saline and labs will be monitored #4 protein and caloric malnutrition-patient will be seen by nutritional services #5 severe debility-according the patient's , he has not walked in the long term for 3 weeks. PT and OT will see the patient #6 elevated liver enzymes without elevated bilirubin-patient will have an ultrasound of the upper abdomen which is limited #7 type 2 diabetes-blood sugars will be monitored via fingerstick blood sugars, sliding scale insulin will be administered #8 essential hypertension-patient's medications will be reviewed Total clinical time spent by myself addressing the patient's medical issues, reviewing all of his data, and collaborating with patient's care team: 55 minutes Charges/Coding Visit Charges Inpatient E&M: 47386 Init Hosp L2
--- NOTE | 2024-01-31 18:35 | US_ITS ---
INDICATION: elevated liver enzymes EXAMINATION: Ultrasound US Abdomen RUQ (limited) TECHNIQUE: Hannon scale and color doppler imaging was performed of the right upper quadrant. COMPARISON: None. FINDINGS: LIVER: 17.1 cm Mild diffuse increased echogenicity Hepatopedal portal flow. There is normal echotexture. No focal hepatic lesion. There is no free fluid. GALLBLADDER AND BILIARY TREE: Distended gallbladder with small stones and suggestion of debris. Mild irregular gallbladder wall thickening up to 5 mm, reference image 128. No shadowing gallstone, pericholecystic fluid or gallbladder wall thickening is demonstrated. The proximal common bile duct measures 4 mm, which is within normal limits for the patient''s age. Songraphic Varghese''s sign: None RIGHT KIDNEY: 11.6 cm in length. No hydronephrosis. No shadowing nephrolithiasis. Normal cortical echogenicity without focal thinning or scarring. No evidence of cystic or solid mass. PANCREAS: Mostly obscured by bowel gas and overlying soft tissue. US/Abdomen Limited IMPRESSION: Echogenic liver as can be seen with steatosis or early fibrosis. Distended gallbladder with multiple small stones and suggestion of debris. Mild wall thickening up to 5 mm which can be seen with cholecystitis. Nuclear medicine hepatobiliary scan could further evaluate if clinically ambiguous. Pancreas is mostly obscured, limiting exam. Electronically Signed: Talon Lacey MD at 19:58 EDT ,
[2024-01-31 20:00] VITALS: BP 140/65; PULSE 87; RESP 18; O2SAT 96
[2024-01-31 20:25] VITALS: BP 114/83; PULSE 83; RESP 16; TEMP 36.4; O2SAT 98
[2024-01-31 20:37] LABS: Reflex Lactate? Y
[2024-01-31 20:45] VITALS: BMI 17.9
[2024-01-31 20:46] VITALS: O2SAT 98
[2024-01-31 20:58] VITALS: BP 160/78; PULSE 84; RESP 18; TEMP 36.9; O2SAT 100
[2024-01-31] MEDS: 0.9% Normal Saline (1000mL) 1,000 ML 100 ML IV (21:19)
[2024-01-31] MEDS: Menthol/Lanolin/Calamine/Znox 113 GM Tube 1 APPLIC TOPICAL (21:55)
[2024-01-31] MEDS: Carvedilol 25 MG Tablet PO (21:55)
[2024-01-31] MEDS: Tamsulosin HCl 0.4 MG Capsule 0.8 MG PO (21:55)
[2024-01-31] MEDS: Heparin Injection (Vial) 5,000 UNIT/ML VIAL 5000 UNIT SC (21:56)
[2024-01-31] MEDS: Insulin Glargine-YFGN 100 UNIT/ML Pen 20 UNIT SC (21:56)
[2024-01-31] MEDS: Insulin Lispro 100 UNIT/ML INSULN.PEN SC (21:56)
[2024-01-31] MEDS: Atorvastatin Calcium 40 MG Tablet PO (21:57)
[2024-01-31] MEDS: Mirtazapine 15 MG Tablet PO (21:57)
[2024-01-31] MEDS: Acetaminophen 325 MG Tablet 650 MG PO (22:00)
[2024-01-31] MEDS: Glucerna Shake 120 ML LIQUID PO (22:00)
[2024-01-31 22:50] LABS: Lactic Acid 2.6 mmol/L (0.4-1.9)
[2024-01-31 23:31] LABS: Bedside Glucose 286 mg/dL (74-106)
[2024-02-01] VITALS (9 sets, daily range): BP systolic 110–130; BP diastolic 47–65; PULSE 71–90; RESP 12–18; TEMP 36.8–37.3; O2SAT 96–99
[2024-02-01] MEDS: Insulin Lispro 100 UNIT/ML INSULN.PEN SC ×4 (06:33→22:14)
[2024-02-01] MEDS: 0.9% Normal Saline (1000mL) 1,000 ML 100 ML IV (06:33)
[2024-02-01] MEDS: Acetaminophen 325 MG Tablet 650 MG PO ×3 (06:38→17:26)
[2024-02-01 07:03] LABS: Bedside Glucose 162 mg/dL (74-106)
[2024-02-01 07:20] LABS: Absolute Lymphocyte Count 0.46 X10^3/uL (0.83-4.51); Basophil# 0.02 X10^3/uL; Basophil% 0.2 % (0-1); Eosinophil# 0.01 X10^3/uL; Eosinophils% 0.1 % (0-5); Hematocrit 30.1 % (40-54); Hemoglobin 9.5 g/dL (13.0-16.5); Lymphocyte # 0.46 X10^3/ul (0.83-4.51); Lymphocyte % 4.1 % (19-41); Mean Corp Hgb Conc 31.6 g/dL (32-36); Mean Corpuscular Volume 85.5 fL (80-94); Monocyte# 0.62 X10^3/uL; Monocyte% 5.6 % (0-10); NRBC Flagged by Analyzer 0 % (0-5); Neutrophil # 9.96 X10^3/uL (2.7-7.7); Neutrophil % 89.4 % (47-70); POSITIVE DIFFERENTIAL YES; Platelet Count 343 K/mm3 (150-450); RBC Distribution Width CV 16.4 % (11.6-14.6); RBC Distribution Width SD 51.2 fl (35.1-43.9); Red Blood Count 3.52 M/mm3 (4.6-6.2); White Blood Count 11.1 K/mm3 (4.4-11.0)
[2024-02-01] MEDS: Ipratropium/Albuterol Sulfate 3 ML AMPUL.NEB INHALATION ×3 (07:34→19:55)
[2024-02-01 07:56] LABS: ALB/GLOB Ratio 0.4 RATIO (0.9-2.4); AST(SGOT) 40 U/L (15-37); Alanine Aminotransfer ALT/SGPT 51 U/L (16-61); Albumin, Serum 1.8 g/dL (3.2-5.0); Alkaline Phosphatase 585 U/L (45-117); Anion Gap 8 (5-15); BUN 23 mg/dL (7-18); BUN/Creat Ratio 26.2 RATIO (10-20); Calcium,Total 8.6 mg/dL (8.5-10.1); Chloride 99 mmol/L (98-107); Creatinine, Serum 0.88 mg/dL (0.70-1.30); EST Glomerular Filtration Rate 92 mL/min (>60); Est Glom Filt Rate - Afr Amer 112 mL/min (>60); Estimated Creatinine Clearance 59.02 ml/min; Globulin 5.1 g/dL (2.2-4.2); Glucose 153 mg/dL (74-106); Potassium 3.6 mmol/L (3.5-5.1); Protein, Total 6.9 g/dL (6.4-8.2); Sodium Level 132 mmol/L (136-145)
[2024-02-01] MEDS: Menthol/Lanolin/Calamine/Znox 113 GM Tube 1 APPLIC TOPICAL ×2 (08:04→22:16)
[2024-02-01] MEDS: Piperacil/Tazobactam 4.5 GM in 0.9% Normal Saline (100mL MB+) 100 ML IV (08:04)
[2024-02-01] MEDS: Clopidogrel Bisulfate 75 MG Tablet PO (08:05)
[2024-02-01] MEDS: Aspirin 81 MG TAB.CHEW PO (08:05)
[2024-02-01] MEDS: Heparin Injection (Vial) 5,000 UNIT/ML VIAL 5000 UNIT SC ×2 (08:05→22:15)
[2024-02-01] MEDS: DULoxetine Hcl 30 MG Capsule PO (08:05)
[2024-02-01] MEDS: Carvedilol 25 MG Tablet PO (08:05)
[2024-02-01] MEDS: Pantoprazole Sodium 40 MG Tablet PO (08:09)
[2024-02-01] MEDS: Glucerna Shake 120 ML LIQUID PO ×2 (08:10→14:48)
[2024-02-01] MEDS: Insulin Glargine-YFGN 100 UNIT/ML Pen 20 UNIT SC (11:20)
--- NOTE | 2024-02-01 11:29 | CASEMGMT ---
Social Work Pt is admitted from [facility]. SW attempted to meet with pt who is sleeping soundly. Phone call to pt's who confirms pt was at [place] under skilled level of care with [facility]. Pt would like pt to return when medically ready. DC assistant coach notified and to send updates to [facility]. Pt will likely need precert prior to return. Plan: Return to [facility], skilled level of care. Pending precert SHAUN Dejesus
--- NOTE | 2024-02-01 11:44 | CASEMGMT ---
Addendum entered by Patsy Riley 02/01/24 13:39: Patient will need precert to return. Patsy Riley DC Planning Asst. Original Note: Discharge Planning Updates sent to [facility] via [facility]. Asked if precert will be needed. Awaiting response. Patsy Riley DC Planning Asst.
[2024-02-01 11:46] LABS: Bedside Glucose 157 mg/dL (74-106)
--- NOTE | 2024-02-01 12:52 | PCM.PN.HOSP ---
Reason for Visit Reason for Visit: Diagnoses Urinary tract infection, site not specified (01/31/24) Subjective Subjective Patient feeling slightly better still just generally unwell, has a little bit of right shoulder pain which is not new and denies any abdominal pain or suprapubic pain or other specific complaints Objective Data Objective Data Vital Signs: Vital Signs Temp Pulse Resp BP Pulse Ox O2 Del Method 98.5 F 82 18 114/60 96 Room Air 02/01/24 08:01 02/01/24 08:01 02/01/24 08:01 02/01/24 11:45 02/01/24 08:01 02/01/24 08:01 Oxygen Delivery Method Room Air Weight: 50.53 kg Body Mass Index (BMI) 17.9 Intake & Output: Intake and Output for Last 24 Hours 01/30/24 01/31/24 02/01/24 23:59 23:59 23:59 Intake Total 1550 / 1870 1745.00 / 1745.00 Output Total 1300 / 1300 Balance 1550 / 970 445.00 / 445.00 Lab / Micro Data 02/01/24 06:18 02/01/24 06:18 Labs: Laboratory Results - last 24 hr 01/31/24 16:32: WBC 13.3 H, RBC 3.95 L, Hgb 11.1 L, Hct 34.1 L, MCV 86.3, MCH 28.1, MCHC 32.6, RDW Std Deviation 51.0 H, RDW Coeff of Maia 16.0 H, Plt Count 367, MPV 9.8, Immature Gran % (Auto) 0.500, Neut % (Auto) 88.8 H, Lymph % (Auto) 4.4 L, [place] % (Auto) 6.0, Eos % (Auto) 0.1, Baso % (Auto) 0.2, Absolute Neuts (auto) 11.8 H, Absolute Lymphs (auto) 0.59 L, Nucleated RBC % 0, Sodium 125 L, Potassium 4.7, Chloride 93 L, Carbon Dioxide 23.0, Anion Gap 9, BUN 33 H, Creatinine 1.31 H, Estim Creat Clear Calc 43.74, Est GFR (MDRD) Af Amer 70, Est GFR (MDRD) Non-Af 58 L, BUN/Creatinine Ratio 25.2 H, Glucose 321 H, Lactic Acid 2.7 H*, Calcium 9.4, Total Bilirubin 0.50, AST 61 H, ALT 71 H, Alkaline Phosphatase 754 H, Ammonia 22.0, Troponin I High Sens 15, Total Protein 7.8, Albumin 2.0 L, Globulin 5.8 H, Albumin/Globulin Ratio 0.3 L, Lipase 17, Urine Color Yellow, Urine Clarity Turbid, Urine pH 5.0, Ur Specific [place] 1.020, Urine Protein 500 H, Urine Glucose (UA) Normal, Urine Ketones Negative, Urine Occult Blood 250 H, Urine Nitrite Positive H, Urine Bilirubin Negative, Urine Urobilinogen Normal, Ur Leukocyte Esterase 500 H, Urine RBC 0 SEEN, Urine WBC >100 SEEN, Ur Squamous Epith Cells 0 SEEN, Urine Bacteria 2+, Urine Mucus 0 SEEN 01/31/24 21:15: Lactic Acid 2.6 H*, POC Glucose 286 H 02/01/24 06:18: WBC 11.1 H, RBC 3.52 L, Hgb 9.5 L, Hct 30.1 L, MCV 85.5, MCH 27.0, MCHC 31.6 L, RDW Std Deviation 51.2 H, RDW Coeff of Maia 16.4 H, Plt Count 343, MPV 10.0, Immature Gran % (Auto) 0.600, Neut % (Auto) 89.4 H, Lymph % (Auto) 4.1 L, [place] % (Auto) 5.6, Eos % (Auto) 0.1, Baso % (Auto) 0.2, Absolute Neuts (auto) 10.0 H, Absolute Lymphs (auto) 0.46 L, Nucleated RBC % 0, Sodium 132 L, Potassium 3.6, Chloride 99, Carbon Dioxide 25.0, Anion Gap 8, BUN 23 H, Creatinine 0.88, Estim Creat Clear Calc 59.02, Est GFR (MDRD) Af Amer 112, Est GFR (MDRD) Non-Af 92, BUN/Creatinine Ratio 26.2 H, Glucose 153 H, Calcium 8.6, Total Bilirubin 0.50, AST 40 H, ALT 51, Alkaline Phosphatase 585 H, Total Protein 6.9, Albumin 1.8 L, Globulin 5.1 H, Albumin/Globulin Ratio 0.4 L 02/01/24 06:30: POC Glucose 162 H 02/01/24 11:18: POC Glucose 157 H Micro: Microbiology 01/31/24 16:32 Urine, Catheterized Urine Culture - Preliminary Gram negative moncho 01/31/24 16:32 Blood Culture (Wb) - Left Forearm Blood Culture - Preliminary Radiography Diagnostic Testing: Radiology Impression Brain CT 01/31/24 16:21 IMPRESSION: No CT evidence of acute intracranial hemorrhage or injury. Sequela of multiple prior infarcts as above without significant change from prior CT. Moderate senescent changes. Electronically Signed: Talon Lacey MD at 17:27 EDT Reading Location ID and State: [facility] / [place] Tel , Service support , Chest X-Ray 01/31/24 16:58 IMPRESSION: No radiographic evidence of acute cardiopulmonary disease. Electronically Signed: Talon Lacey MD at 17:17 EDT Reading Location ID and State: [facility] / [place] Tel , Service support , Abdomen Ultrasound 01/31/24 18:35 IMPRESSION: Echogenic liver as can be seen with steatosis or early fibrosis. Distended gallbladder with multiple small stones and suggestion of debris. Mild wall thickening up to 5 mm which can be seen with cholecystitis. Nuclear medicine hepatobiliary scan could further evaluate if clinically ambiguous. Pancreas is mostly obscured, limiting exam. Electronically Signed: Talon Lacey MD at 19:58 EDT Reading Location ID and State: [facility] / [place] Tel , Service support , Physical Exam Narrative General: Awake and answers questions but speaks slowly and is slow to do so HEENT: Atraumatic, Eyes: Anicteric, normal conjunctiva, extraocular movements grossly intact Neck: Supple Respiratory: Poor inspiratory effort, normal respiratory effort Cardiovascular: Regular rate GI: Soft, nontender, nondistended Extremities: No edema Musculoskeletal: Moving all extremities in bed Neuro: No overt focal neurological deficits Skin: No rashes appreciated Psych: Cooperative Assessment & Plan Assessment/Plan (1) Acute UTI: (2) Bacteremia: (3) Normocytic anemia: PLAN: Plan #Acute UTI and GNR bacteremia -UA suggestive of UTI is also growing organism and blood cultures preliminarily gram-negative rods -Patient on Zosyn, was initially on Rocephin however given recent hospitalizations and initial concern for gallbladder pathology is changed to Zosyn, presently tolerating this so we will await sensitivities -Patient not having any pain in right upper quadrant and no symptoms consistent with cholecystitis, will monitor and if any further concerns can consider HIDA or surgery consult -Continue IV fluids # Metabolic encephalopathy secondary to acute UTI and gram-negative moncho bacteremia -Improving with treatment of underlying problem #MADELEINE- resolved -Creatinine 1.31 on presentation on the day before was 0.95 -Improved with IV fluids, will decrease rate #Hx TIA/CAD s/p stents and CABG -On asa and plavix, will continue -Continue statin # Recent ileostomy and poor p.o. intake -Encourage p.o. -Supportive care -Continue mirtazapine #Type 2 diabetes mellitus -Glucose checks and sliding scale insulin -Will decrease patient's long-acting insulin due to poor p.o. intake #GERD -Continue PPI #Hypertension -On amlodipine and carvedilol #Chronic BPH with obstruction -Continue home medications #DVT ppx: Heparin subcu Nicole Smith MD Time spent in the patient's overall evaluation,decision-making process, review of diagnostic data, adjustment of management, discussion with other providers, nursing nursing and ancillary staff involved in patient's care documentation, 37 Minutes Charges/Coding Visit Charges Inpatient E&M: 22471 [facility] Hosp L2
--- NOTE | 2024-02-01 14:16 | CHAPLAIN ---
Type of Pastoral Visit _x__ Initial Visit ___ Follow-up Visit ___ On-call Visit ___ General Patient Visit ___ Spiritual Assessment ___ Family Conference ___ Bereavement ___ Rapid Response ___ Code Blue ___ Other (describe below) Pastoral Care Referral From _x__ Patient ___ Family ___ Nurse ___ Physician ___ Photographic Equipment Assembler ___ Turning Lathe Tender ___ Other (describe below) Sacrament/Intervention ___ Active listening ___ Anointing ___ Methodist ___ Bereavement ___ Communion ___ Angelika exploration ___ ___ Life review _x__ Prayer ___ Reconciliation ___ Sacrament of Sick _x__ Supportive presence ___ Wedding ___ Other (describe below) Pastoral Comments this patient was having much activity when this typesetting supervisor came to visit; RT was doing a breathing treatment so this typesetting supervisor returned shortly as that was finishing; RN, ROD TAPE OPERATOR, and Dietary all came during time of visit; spouse came during visit; pt was very slow to speak but did answer questions; pt did not think of any needs or concerns and could not verbalize how he was doing; pt did agree on a prayer being spoken and that was done
[2024-02-01] MEDS: Piperacil/Tazobactam 3.375 GM in 0.9% Normal Saline (50mL MB+) 50 ML IV ×2 (14:48→22:06)
[2024-02-01] MEDS: 0.9% Normal Saline (1000mL) 1,000 ML 50 ML IV (17:26)
[2024-02-01 17:48] LABS: Bedside Glucose 270 mg/dL (74-106)
[2024-02-01] MEDS: Atorvastatin Calcium 40 MG Tablet PO (22:09)
[2024-02-01] MEDS: Mirtazapine 15 MG Tablet PO (22:09)
[2024-02-01] MEDS: Insulin Glargine-YFGN 100 UNIT/ML Pen 10 UNIT SC (22:13)
[2024-02-01] MEDS: Tamsulosin HCl 0.4 MG Capsule 0.8 MG PO (22:15)
[2024-02-01] MEDS: Carvedilol 12.5 MG Tablet PO (22:16)
[2024-02-01 22:46] LABS: Bedside Glucose 294 mg/dL (74-106)
[2024-02-02] VITALS (7 sets, daily range): BP systolic 104–137; BP diastolic 56–69; PULSE 66–82; RESP 16–18; TEMP 36.6–38.7; O2SAT 96–100
[2024-02-02] MEDS: Acetaminophen 325 MG Tablet 650 MG PO ×3 (00:40→16:15)
[2024-02-02] MEDS: Piperacil/Tazobactam 3.375 GM in 0.9% Normal Saline (50mL MB+) 50 ML IV ×3 (05:31→22:07)
[2024-02-02 06:29] LABS: Absolute Lymphocyte Count 0.57 X10^3/uL (0.83-4.51); Absolute Neutrophil Count 6.4 X10^3/uL (2.0-7.7); Basophil# 0.01 X10^3/uL; Basophil% 0.1 % (0-1); Eosinophil# 0.02 X10^3/uL; Eosinophils% 0.3 % (0-5); Hematocrit 28.9 % (40-54); Hemoglobin 9.1 g/dL (13.0-16.5); Lymphocyte # 0.57 X10^3/ul (0.83-4.51); Lymphocyte % 7.5 % (19-41); Mean Corp Hgb Conc 31.5 g/dL (32-36); Mean Corpuscular Hgb 27.5 pg (27.0-32.0); Mean Corpuscular Volume 87.3 fL (80-94); Monocyte# 0.62 X10^3/uL; Monocyte% 8.1 % (0-10); NRBC Flagged by Analyzer 0 % (0-5); Neutrophil # 6.37 X10^3/uL (2.7-7.7); Neutrophil % 83.6 % (47-70); POSITIVE DIFFERENTIAL YES; Platelet Count 302 K/mm3 (150-450); RBC Distribution Width CV 16.1 % (11.6-14.6); RBC Distribution Width SD 52.1 fl (35.1-43.9); Red Blood Count 3.31 M/mm3 (4.6-6.2); White Blood Count 7.6 K/mm3 (4.4-11.0)
[2024-02-02] MEDS: Insulin Lispro 100 UNIT/ML INSULN.PEN SC ×4 (06:40→22:19)
[2024-02-02 06:54] LABS: Bedside Glucose 155 mg/dL (74-106)
[2024-02-02 07:06] LABS: ALB/GLOB Ratio 0.3 RATIO (0.9-2.4); AST(SGOT) 136 U/L (15-37); Alanine Aminotransfer ALT/SGPT 101 U/L (16-61); Albumin, Serum 1.6 g/dL (3.2-5.0); Alkaline Phosphatase 720 U/L (45-117); Anion Gap 11 (5-15); BUN 15 mg/dL (7-18); BUN/Creat Ratio 17.5 RATIO (10-20); Calcium,Total 7.9 mg/dL (8.5-10.1); Chloride 101 mmol/L (98-107); Creatinine, Serum 0.86 mg/dL (0.70-1.30); EST Glomerular Filtration Rate 95 mL/min (>60); Est Glom Filt Rate - Afr Amer 115 mL/min (>60); Estimated Creatinine Clearance 60.35 ml/min; Glucose 171 mg/dL (74-106); Potassium 3.1 mmol/L (3.5-5.1); Protein, Total 6.6 g/dL (6.4-8.2); Sodium Level 132 mmol/L (136-145)
[2024-02-02] MEDS: Ipratropium/Albuterol Sulfate 3 ML AMPUL.NEB INHALATION (07:21)
[2024-02-02] MEDS: Potassium Chloride 10mEq/100mL 10 MEQ/100 ML IV.SOLN. 100 MEQ IV BOLUS ×2 (08:32→09:52)
[2024-02-02] MEDS: Menthol/Lanolin/Calamine/Znox 113 GM Tube 1 APPLIC TOPICAL ×2 (08:32→22:08)
[2024-02-02] MEDS: DULoxetine Hcl 30 MG Capsule PO (09:52)
[2024-02-02] MEDS: Aspirin 81 MG TAB.CHEW PO (09:52)
[2024-02-02] MEDS: Carvedilol 12.5 MG Tablet PO ×2 (09:52→22:08)
[2024-02-02] MEDS: Glucerna Shake 120 ML LIQUID PO ×3 (09:53→22:07)
[2024-02-02] MEDS: Clopidogrel Bisulfate 75 MG Tablet PO (09:53)
[2024-02-02] MEDS: Pantoprazole Sodium 40 MG Tablet PO (09:53)
[2024-02-02] MEDS: Heparin Injection (Vial) 5,000 UNIT/ML VIAL 5000 UNIT SC ×2 (09:53→22:08)
[2024-02-02] MEDS: Insulin Glargine-YFGN 100 UNIT/ML Pen 10 UNIT SC ×2 (09:54→22:18)
--- NOTE | 2024-02-02 10:20 | PCM.PN.HOSP ---
Reason for Visit Reason for Visit: Diagnoses Anemia, unspecified (01/31/24) Urinary tract infection, site not specified (01/31/24) Bacteremia (01/31/24) Subjective Subjective Patient feeling slightly better today, continues to only report his chronic right shoulder pain and no abdominal pain, still somewhat generally weak Objective Data Objective Data Vital Signs: Vital Signs Temp Pulse Resp BP Pulse Ox O2 Del Method 98 F 80 18 137/69 H 100 Room Air 02/02/24 10:03 02/02/24 10:03 02/02/24 10:03 02/02/24 10:03 02/02/24 10:03 02/02/24 10:03 Oxygen Delivery Method Room Air Weight: 50.5 kg Body Mass Index (BMI) 17.9 Intake & Output: Intake and Output for Last 24 Hours 01/31/24 02/01/24 02/02/24 23:59 23:59 23:59 Intake Total 1550 / 1870 3680.33 / 3680.33 796.67 / 796.67 Output Total 1925 / 1925 1200 / 1200 Balance 1550 / 970 1755.33 / 1755.33 -403.33 / -403.33 Lab / Micro Data 02/02/24 05:35 02/02/24 05:35 Labs: Laboratory Results - last 24 hr 02/01/24 11:18: POC Glucose 157 H 02/01/24 17:22: POC Glucose 270 H 02/01/24 22:12: POC Glucose 294 H 02/02/24 05:35: WBC 7.6, RBC 3.31 L, Hgb 9.1 L, Hct 28.9 L, MCV 87.3, MCH 27.5, MCHC 31.5 L, RDW Std Deviation 52.1 H, RDW Coeff of Maia 16.1 H, Plt Count 302, MPV 10.0, Immature Gran % (Auto) 0.400, Neut % (Auto) 83.6 H, Lymph % (Auto) 7.5 L, [place] % (Auto) 8.1, Eos % (Auto) 0.3, Baso % (Auto) 0.1, Absolute Neuts (auto) 6.4, Absolute Lymphs (auto) 0.57 L, Nucleated RBC % 0, Sodium 132 L, Potassium 3.1 L, Chloride 101, Carbon Dioxide 20.0 L, Anion Gap 11, BUN 15, Creatinine 0.86, Estim Creat Clear Calc 60.35, Est GFR (MDRD) Af Amer 115, Est GFR (MDRD) Non-Af 95, BUN/Creatinine Ratio 17.5, Glucose 171 H, Calcium 7.9 L, Total Bilirubin 0.30, AST 136 H, ALT 101 H, Alkaline Phosphatase 720 H, Total Protein 6.6, Albumin 1.6 L, Globulin 5.0 H, Albumin/Globulin Ratio 0.3 L 02/02/24 06:36: POC Glucose 155 H Micro: Microbiology 01/31/24 16:32 Urine, Catheterized Urine Culture - Final Escherichia coli 01/31/24 16:32 Blood Culture (Wb) - Left Forearm Blood Culture - Preliminary Gram negative moncho Physical Exam Narrative General: Alert, oriented, no apparent distress HEENT: Atraumatic, normocephalic Eyes: Anicteric, normal conjunctiva, extraocular movements grossly intact Neck: Supple Respiratory: Normal respiratory effort, no rhonchi or wheezes appreciated Cardiovascular: Regular rate and rhythm GI: Soft, nontender, nondistended Extremities: No edema Musculoskeletal: Sitting up in chair, moves extremities in chair Neuro: No overt focal neurological deficits Skin: No rashes appreciated Psych: Cooperative Assessment & Plan Assessment/Plan (1) Acute UTI: (2) Bacteremia: (3) Normocytic anemia: PLAN: Plan #Acute UTI and GNR bacteremia -UA suggestive of UTI is also growing organism and blood cultures preliminarily gram-negative rods -Patient on Zosyn, was initially on Rocephin however given recent hospitalizations and initial concern for gallbladder pathology is changed to Zosyn, presently tolerating this so we will await sensitivities -Patient not having any pain in right upper quadrant and no symptoms consistent with cholecystitis, will monitor and if any further concerns can consider HIDA or surgery consult -Continue IV fluids -02/01: Continue to await culture and sensitivity, continue Zosyn. Patient continues to deny any abdominal pain, will repeat CMP in the a.m. Did have a fever earlier this morning, unclear etiology, fevers resolved, continue to monitor for any other infectious symptoms and continue broad-spectrum antibiotics. If patient spikes another temperature will repeat blood cultures # Metabolic encephalopathy secondary to acute UTI and gram-negative moncho bacteremia -Improving with treatment of underlying problem -02/01: Improving with treatment of UTI #MADELEINE- resolved -Creatinine 1.31 on presentation on the day before was 0.95 -Improved with IV fluids, will decrease rate -02/01: Continued to improve and BUN within normal limits, will hold fluids #Hx TIA/CAD s/p stents and CABG -On asa and plavix, will continue -Continue statin -02/01: Continue present management # Recent ileostomy and poor p.o. intake -Encourage p.o. -Supportive care -Continue mirtazapine -02/01: Continue to encourage increased p.o. intake #Type 2 diabetes mellitus -Glucose checks and sliding scale insulin -Will decrease patient's long-acting insulin due to poor p.o. intake -02/01: Glucose is variable however within a decent range this a.m., continue present glucose control #GERD -Continue PPI -02/01: No abdominal complaints #Hypertension -On amlodipine and carvedilol -02/01: Patient remains on Coreg, amlodipine was discontinued to avoid hypotension #Chronic BPH with obstruction -Continue home medications -02/01: Patient does have Robb in place at this time #DVT ppx: Heparin subcu Nicole Smith MD Time spent in the patient's overall evaluation,decision-making process, review of diagnostic data, adjustment of management, discussion with other providers, nursing nursing and ancillary staff involved in patient's care documentation, 36 Minutes Charges/Coding Visit Charges Inpatient E&M: 76696 Subs Hosp L2
--- NOTE | 2024-02-02 10:47 | CASEMGMT ---
Social Work Per physician, pt will be here through the weekend. Pt will need precert for return to [facility]. Precert has not been started yet. SW to follow up on Monday. DALIA economist research assistant notified and will inform [place]. Plan: Return to [place], pending precert SHAUN Dejesus
[2024-02-02 11:51] LABS: Bedside Glucose 183 mg/dL (74-106)
[2024-02-02 16:49] LABS: Bedside Glucose 151 mg/dL (74-106)
[2024-02-02] MEDS: Mirtazapine 15 MG Tablet PO (22:07)
[2024-02-02] MEDS: Atorvastatin Calcium 40 MG Tablet PO (22:07)
[2024-02-02] MEDS: Tamsulosin HCl 0.4 MG Capsule 0.8 MG PO (22:08)
[2024-02-02 22:39] LABS: Bedside Glucose 202 mg/dL (74-106)
[2024-02-03] VITALS (11 sets, daily range): BP systolic 73–157; BP diastolic 45–73; PULSE 62–94; RESP 16–24; TEMP 36.8–37.7; O2SAT 93–100
[2024-02-03] MEDS: Piperacil/Tazobactam 3.375 GM in 0.9% Normal Saline (50mL MB+) 50 ML IV ×3 (05:50→22:10)
[2024-02-03] MEDS: Insulin Lispro 100 UNIT/ML INSULN.PEN SC ×4 (06:32→22:00)
[2024-02-03] MEDS: Acetaminophen 325 MG Tablet 650 MG PO ×2 (06:34→19:39)
[2024-02-03 07:19] LABS: Absolute Neutrophil Count 5.4 X10^3/uL (2.0-7.7); Basophil# 0.01 X10^3/uL; Basophil% 0.1 % (0-1); Eosinophil# 0.05 X10^3/uL; Eosinophils% 0.7 % (0-5); Hematocrit 29.9 % (40-54); Hemoglobin 9.5 g/dL (13.0-16.5); Lymphocyte % 8.9 % (19-41); Mean Corp Hgb Conc 31.8 g/dL (32-36); Mean Corpuscular Hgb 26.8 pg (27.0-32.0); Mean Corpuscular Volume 84.5 fL (80-94); Mean Platelet Vol. 9.3 fl (6.2-12.0); Monocyte# 0.59 X10^3/uL; Monocyte% 8.8 % (0-10); NRBC Flagged by Analyzer 0 % (0-5); Neutrophil # 5.43 X10^3/uL (2.7-7.7); Neutrophil % 81.1 % (47-70); POSITIVE DIFFERENTIAL YES; Platelet Count 341 K/mm3 (150-450); RBC Distribution Width CV 16.2 % (11.6-14.6); RBC Distribution Width SD 50.3 fl (35.1-43.9); Red Blood Count 3.54 M/mm3 (4.6-6.2); White Blood Count 6.7 K/mm3 (4.4-11.0)
[2024-02-03 07:47] LABS: ALB/GLOB Ratio 0.3 RATIO (0.9-2.4); AST(SGOT) 57 U/L (15-37); Alanine Aminotransfer ALT/SGPT 71 U/L (16-61); Albumin, Serum 1.7 g/dL (3.2-5.0); Alkaline Phosphatase 652 U/L (45-117); Anion Gap 6 (5-15); BUN 15 mg/dL (7-18); BUN/Creat Ratio 16.9 RATIO (10-20); Calcium,Total 8.4 mg/dL (8.5-10.1); Chloride 102 mmol/L (98-107); Creatinine, Serum 0.89 mg/dL (0.70-1.30); EST Glomerular Filtration Rate 91 mL/min (>60); Est Glom Filt Rate - Afr Amer 110 mL/min (>60); Estimated Creatinine Clearance 58.32 ml/min; Glucose 155 mg/dL (74-106); Protein, Total 6.7 g/dL (6.4-8.2); Sodium Level 135 mmol/L (136-145)
--- NOTE | 2024-02-03 08:37 | PCM.PN.HOSP ---
Reason for Visit Reason for Visit: Diagnoses Anemia, unspecified (01/31/24) Urinary tract infection, site not specified (01/31/24) Bacteremia (01/31/24) Subjective Subjective There is concern for low blood pressure readings patient was laid down, went to bedside to evaluate patient and he reports feeling fair, still somewhat weak overall, had been sitting up eating breakfast, felt a small amount of pain around stoma and urine able but minimal and denies any significant pain, systolic blood pressure up to 118 while patient resting bed without any intervention Objective Data Objective Data Vital Signs: Vital Signs Temp Pulse Resp BP Pulse Ox O2 Del Method 99.5 F H 82 16 73/45 L 98 Room Air 02/03/24 08:23 02/03/24 08:23 02/03/24 08:23 02/03/24 08:23 02/03/24 08:23 02/03/24 08:23 Oxygen Delivery Method Room Air Weight: 50.5 kg Body Mass Index (BMI) 17.9 Intake & Output: Intake and Output for Last 24 Hours 02/01/24 02/02/24 02/03/24 23:59 23:59 23:59 Intake Total 3680.33 / 3680.33 946.67 / 1146.67 400 / 400 Output Total 1925 / 1925 2875 / 3550 1400 / 1400 Balance 1755.33 / 1755.33 -1928.33 / -2403.33 -1000 / -1000 Lab / Micro Data 02/03/24 07:10 02/03/24 07:10 Labs: Laboratory Results - last 24 hr 02/02/24 11:27: POC Glucose 183 H 02/02/24 16:14: POC Glucose 151 H 02/02/24 22:18: POC Glucose 202 H 02/03/24 07:10: WBC 6.7, RBC 3.54 L, Hgb 9.5 L, Hct 29.9 L, MCV 84.5, MCH 26.8 L, MCHC 31.8 L, RDW Std Deviation 50.3 H, RDW Coeff of Maia 16.2 H, Plt Count 341, MPV 9.3, Immature Gran % (Auto) 0.400, Neut % (Auto) 81.1 H, Lymph % (Auto) 8.9 L, [place] % (Auto) 8.8, Eos % (Auto) 0.7, Baso % (Auto) 0.1, Absolute Neuts (auto) 5.4, Absolute Lymphs (auto) 0.60 L, Nucleated RBC % 0, Sodium 135 L, Potassium 3.0 L, Chloride 102, Carbon Dioxide 27.0, Anion Gap 6, BUN 15, Creatinine 0.89, Estim Creat Clear Calc 58.32, Est GFR (MDRD) Af Amer 110, Est GFR (MDRD) Non-Af 91, BUN/Creatinine Ratio 16.9, Glucose 155 H, Calcium 8.4 L, Total Bilirubin 0.30, AST 57 H, ALT 71 H, Alkaline Phosphatase 652 H, Total Protein 6.7, Albumin 1.7 L, Globulin 5.0 H, Albumin/Globulin Ratio 0.3 L Micro: Microbiology 01/31/24 16:32 Blood Culture (Wb) - Left Forearm Blood Culture - Final Escherichia coli 01/31/24 16:32 Urine, Catheterized Urine Culture - Final Escherichia coli Physical Exam Narrative General: Alert, oriented, no apparent distress HEENT: Atraumatic, normocephalic Eyes: Anicteric, normal conjunctiva, extraocular movements grossly intact Neck: Supple Respiratory: Normal respiratory effort, no rhonchi or wheezes appreciated Cardiovascular: Regular rate and rhythm GI: Soft, nontender, nondistended, stoma and bag is noted Extremities: No edema Musculoskeletal: Lying in bed, moving extremities Neuro: No overt focal neurological deficits Skin: No rashes appreciated Psych: Cooperative Assessment & Plan Assessment/Plan (1) Acute UTI: (2) Bacteremia: (3) Normocytic anemia: PLAN: Plan #Acute UTI and GNR bacteremia -UA suggestive of UTI is also growing organism and blood cultures preliminarily gram-negative rods -Patient on Zosyn, was initially on Rocephin however given recent hospitalizations and initial concern for gallbladder pathology is changed to Zosyn, presently tolerating this so we will await sensitivities -Patient not having any pain in right upper quadrant and no symptoms consistent with cholecystitis, will monitor and if any further concerns can consider HIDA or surgery consult -Continue IV fluids -02/01: Continue to await culture and sensitivity, continue Zosyn. Patient continues to deny any abdominal pain, will repeat CMP in the a.m. Did have a fever earlier this morning, unclear etiology, fevers resolved, continue to monitor for any other infectious symptoms and continue broad-spectrum antibiotics. If patient spikes another temperature will repeat blood cultures -02/02: Awaiting final cultures patient intermittently with some mildly elevated temps and somewhat lower blood pressure, when BP low this morning patient recultured given bolus of fluids and vancomycin added to regimen, patient did not have any specific complaints at the time of exam however interventions in place and will continue as we monitor cultures, de-escalate as able. LFTs did start to downtrend # Metabolic encephalopathy secondary to acute UTI and gram-negative moncho bacteremia -Improving with treatment of underlying problem -02/01: Improving with treatment of UTI -02/02: Continues to improve #MADELEINE- resolved -Creatinine 1.31 on presentation on the day before was 0.95 -Improved with IV fluids, will decrease rate -02/01: Continued to improve and BUN within normal limits, will hold fluids #Hx TIA/CAD s/p stents and CABG -On asa and plavix, will continue -Continue statin -02/01: Continue present management # Recent ileostomy and poor p.o. intake -Encourage p.o. -Supportive care -Continue mirtazapine -02/01: Continue to encourage increased p.o. intake -02/02: Patient net negative for this admission, will give additional IV fluid, encourage oral intake #Hypokalemia -Replaved #Type 2 diabetes mellitus -Glucose checks and sliding scale insulin -Will decrease patient's long-acting insulin due to poor p.o. intake -02/01: Glucose is variable however within a decent range this a.m., continue present glucose control -02/02: Avoid hypoglycemia, continue present management #GERD -Continue PPI -02/01: No abdominal complaints -02/02: No new complaints #Hypertension -On amlodipine and carvedilol -02/01: Patient remains on Coreg, amlodipine was discontinued to avoid hypotension -02/02: Patient did have low BP earlier, decreased Coreg and added specifically parameters #Chronic BPH with obstruction -Continue home medications -02/01: Patient does have Robb in place at this time #DVT ppx: Heparin subcu Nicole Smith MD Time spent in the patient's overall evaluation,decision-making process, review of diagnostic data, adjustment of management, discussion with other providers, nursing nursing and ancillary staff involved in patient's care documentation, 38 Minutes Charges/Coding Visit Charges Inpatient E&M: 67188 Subs Hosp L2
[2024-02-03] MEDS: Menthol/Lanolin/Calamine/Znox 113 GM Tube 1 APPLIC TOPICAL ×2 (08:52→21:58)
[2024-02-03] MEDS: 0.9% Normal Saline (250mL Bag) 250 ML 999 ML IV (08:52)
[2024-02-03] MEDS: Clopidogrel Bisulfate 75 MG Tablet PO (09:53)
[2024-02-03] MEDS: Potassium Chloride Oral Tablet 20 MEQ 60 MEQ PO (09:53)
[2024-02-03] MEDS: Aspirin 81 MG TAB.CHEW PO (09:53)
[2024-02-03] MEDS: Pantoprazole Sodium 40 MG Tablet PO (09:53)
[2024-02-03] MEDS: Glucerna Shake 120 ML LIQUID PO ×3 (09:54→22:13)
[2024-02-03] MEDS: DULoxetine Hcl 30 MG Capsule PO (09:54)
[2024-02-03] MEDS: Heparin Injection (Vial) 5,000 UNIT/ML VIAL 5000 UNIT SC ×2 (09:54→21:59)
[2024-02-03] MEDS: Vancomycin HCl 1,250 MG in 0.9% Normal Saline (250mL Bag) 250 ML 167 MG IV (10:22)
[2024-02-03 10:26] LABS: Bacteria 0 SEEN /hpf (None Seen); Mucous, Urine 0 SEEN /hpf (<or=2+); Red Blood Cells-Urine 0 SEEN /hpf (0-5); Squamous Epithelial Cells - UA 0 SEEN /hpf (0-5)
[2024-02-03 10:31] LABS: Color, Urine Yellow (Yellow); Glucose, Dipstick Normal (Normal); Ketone-Dipstick Negative (Negative); Leukocyte Esterase-Dipstick 500 /ul (Negative); Nitrite-Dipstick Negative (Negative); Occult Blood-Urine 250 /ul (Negative); Protein-Dipstick 30 mg/dl (Negative); Urine Bilirubin Dipstick Negative (Negative); Urine Clarity Cloudy (Clear); Urine Urobilinogen Normal (Normal)
[2024-02-03 11:10] LABS: White Blood Cells >100 SEEN /hpf (0-5)
[2024-02-03] MEDS: Insulin Glargine-YFGN 100 UNIT/ML Pen 10 UNIT SC ×2 (11:38→22:00)
[2024-02-03 11:53] LABS: Bedside Glucose 195 mg/dL (74-106)
[2024-02-03 11:53] LABS: Bedside Glucose 167 mg/dL (74-106)
[2024-02-03 11:53] LABS: Bedside Glucose 140 mg/dL (74-106)
[2024-02-03] MEDS: Potassium Chloride 10mEq/100mL 10 MEQ/100 ML IV.SOLN. 100 MEQ IV BOLUS ×2 (12:19→13:28)
[2024-02-03] MEDS: 0.9% Normal Saline (1000mL) 1,000 ML 50 ML IV (13:28)
[2024-02-03] MEDS: Ipratropium/Albuterol Sulfate 3 ML AMPUL.NEB INHALATION ×2 (13:39→19:46)
[2024-02-03 16:22] LABS: Bedside Glucose 288 mg/dL (74-106)
[2024-02-03] MEDS: Calcium Carbonate 500 MG Tablet 1000 MG PO ×2 (16:26→22:20)
--- NOTE | 2024-02-03 16:29 | PCM.RX.CS ---
Consult Antibiotic Management Pharmacy has been consulted to manage selected antibiotic: Vancomycin Type of Intervention Type of Consult: New start Suspected Infection Suspected Infection: Bacteremia Prior Doses of Antibiotics Prior Doses of Antibiotics Received/Current Regimen: Received 1250mg iv x 1 as initial dose. Labs Labs: Sodium 135 mmol/L (136-145) L 02/03/24 07:10 Potassium 3.0 mmol/L (3.5-5.1) L 02/03/24 07:10 Chloride 102 mmol/L (98-107) 02/03/24 07:10 Carbon Dioxide 27.0 mmol/L (21.0-32.0) 02/03/24 07:10 Anion Gap 6 (5-15) 02/03/24 07:10 BUN 15 mg/dL (7-18) 02/03/24 07:10 Creatinine 0.89 mg/dL (0.70-1.30) 02/03/24 07:10 Est GFR (MDRD) Af Amer 110 mL/min (>60) 02/03/24 07:10 Est GFR (MDRD) Non-Af 91 mL/min (>60) 02/03/24 07:10 BUN/Creatinine Ratio 16.9 RATIO (10-20) 02/03/24 07:10 Glucose 155 mg/dL (74-106) H 02/03/24 07:10 Microbiology Microbiology: Microbiology 01/31/24 16:32 Blood Culture (Wb) - Left Forearm Blood Culture - Final Escherichia coli 01/31/24 16:32 Urine, Catheterized Urine Culture - Final Escherichia coli Dosing Weight Weight used for dosin.5 kg Estimated Creatinine Clearance Estimated Creatinine Clearance: 58ml/min Goal Trough Goal Trough: 15-20 mcg/mL Pharmacy Plan for Drug Dosing Pharmacy Plan for Drug Dosing: Recommend a starting dose of 500mg iv q12h per protocol. Trough level before 4th total dose. Pharmacy Service will continue to monitor and adjust dosing as required. Follow-Up Labs Follow-Up Labs: Trough: Vancomycin (02.04.24 @2130)
[2024-02-03] MEDS: Vancomycin IV 500 MG/100 ML BAG 100 MG IV (20:59)
[2024-02-03] MEDS: Tamsulosin HCl 0.4 MG Capsule 0.8 MG PO (21:59)
[2024-02-03] MEDS: Mirtazapine 15 MG Tablet PO (21:59)
[2024-02-03] MEDS: Carvedilol 6.25 MG Tablet PO (21:59)
[2024-02-03] MEDS: Atorvastatin Calcium 40 MG Tablet PO (22:00)
[2024-02-03] MEDS: MELATONIN 3 MG TABLET PO (22:10)
[2024-02-03] MEDS: oxyCODONE 5 MG Tablet 2.5 MG PO (22:10)
[2024-02-04] VITALS (7 sets, daily range): BP systolic 107–141; BP diastolic 53–79; PULSE 80–90; RESP 16–18; TEMP 36.7–37.5; O2SAT 95–100
[2024-02-04] MEDS: Piperacil/Tazobactam 3.375 GM in 0.9% Normal Saline (50mL MB+) 50 ML IV ×3 (06:07→23:52)
[2024-02-04] MEDS: Insulin Lispro 100 UNIT/ML INSULN.PEN SC ×4 (06:21→21:48)
[2024-02-04] MEDS: Ipratropium/Albuterol Sulfate 3 ML AMPUL.NEB INHALATION ×2 (06:33→19:49)
[2024-02-04 06:34] LABS: Absolute Lymphocyte Count 0.71 X10^3/uL (0.83-4.51); Absolute Neutrophil Count 5.6 X10^3/uL (2.0-7.7); Basophil# 0.02 X10^3/uL; Basophil% 0.3 % (0-1); Eosinophil# 0.12 X10^3/uL; Eosinophils% 1.7 % (0-5); Hematocrit 28.9 % (40-54); Hemoglobin 9.1 g/dL (13.0-16.5); Lymphocyte # 0.71 X10^3/ul (0.83-4.51); Lymphocyte % 9.8 % (19-41); Mean Corp Hgb Conc 31.5 g/dL (32-36); Mean Corpuscular Hgb 27.1 pg (27.0-32.0); Mean Platelet Vol. 9.8 fl (6.2-12.0); Monocyte# 0.77 X10^3/uL; Monocyte% 10.6 % (0-10); NRBC Flagged by Analyzer 0 % (0-5); Neutrophil # 5.56 X10^3/uL (2.7-7.7); Neutrophil % 76.6 % (47-70); Platelet Count 323 K/mm3 (150-450); RBC Distribution Width CV 16.4 % (11.6-14.6); RBC Distribution Width SD 51.8 fl (35.1-43.9); Red Blood Count 3.36 M/mm3 (4.6-6.2); White Blood Count 7.3 K/mm3 (4.4-11.0)
[2024-02-04 06:52] LABS: Bedside Glucose 189 mg/dL (74-106)
[2024-02-04 07:27] LABS: ALB/GLOB Ratio 0.3 RATIO (0.9-2.4); AST(SGOT) 56 U/L (15-37); Alanine Aminotransfer ALT/SGPT 63 U/L (16-61); Albumin, Serum 1.6 g/dL (3.2-5.0); Alkaline Phosphatase 566 U/L (45-117); Anion Gap 9 (5-15); BUN 14 mg/dL (7-18); BUN/Creat Ratio 19.1 RATIO (10-20); Calcium,Total 7.9 mg/dL (8.5-10.1); Chloride 105 mmol/L (98-107); Creatinine, Serum 0.73 mg/dL (0.70-1.30); EST Glomerular Filtration Rate 114 mL/min (>60); Est Glom Filt Rate - Afr Amer 138 mL/min (>60); Estimated Creatinine Clearance 64.88 ml/min; Globulin 4.8 g/dL (2.2-4.2); Glucose 239 mg/dL (74-106); Potassium 3.3 mmol/L (3.5-5.1); Protein, Total 6.4 g/dL (6.4-8.2); Sodium Level 137 mmol/L (136-145)
[2024-02-04] MEDS: Pantoprazole Sodium 40 MG Tablet PO (09:32)
[2024-02-04] MEDS: Glucerna Shake 120 ML LIQUID PO (09:33)
[2024-02-04] MEDS: Menthol/Lanolin/Calamine/Znox 113 GM Tube 1 APPLIC TOPICAL ×2 (09:33→21:50)
[2024-02-04] MEDS: Carvedilol 6.25 MG Tablet PO ×2 (09:33→21:42)
[2024-02-04] MEDS: Heparin Injection (Vial) 5,000 UNIT/ML VIAL 5000 UNIT SC ×2 (09:33→21:44)
[2024-02-04] MEDS: Insulin Glargine-YFGN 100 UNIT/ML Pen 10 UNIT SC ×2 (09:33→21:48)
[2024-02-04] MEDS: Aspirin 81 MG TAB.CHEW PO (09:33)
[2024-02-04] MEDS: DULoxetine Hcl 30 MG Capsule PO (09:34)
[2024-02-04] MEDS: Clopidogrel Bisulfate 75 MG Tablet PO (09:34)
[2024-02-04] MEDS: Acetaminophen 325 MG Tablet 650 MG PO ×2 (09:40→23:56)
[2024-02-04] MEDS: Calcium Carbonate 500 MG Tablet 1000 MG PO ×2 (09:40→20:28)
[2024-02-04] MEDS: Vancomycin IV 500 MG/100 ML BAG 100 MG IV (10:51)
--- NOTE | 2024-02-04 11:42 | PCM.PN.HOSP ---
Subjective Subjective Doing well, feels better than yesterday. Objective Data Objective Data Vital Signs: Vital Signs Temp Pulse Resp BP Pulse Ox O2 Del Method 98.5 F 90 16 107/53 L 97 Room Air 02/04/24 08:17 02/04/24 08:17 02/04/24 08:17 02/04/24 08:17 02/04/24 08:17 02/04/24 08:19 Oxygen Delivery Method Room Air Weight: 111 lb 5.335 oz Body Mass Index (BMI) 17.9 Intake & Output: Intake and Output for Last 24 Hours 02/03/24 02/04/24 02/05/24 03:59 03:59 03:59 Intake Total 1146.67 / 1146.67 1725.0 / 1725.0 1150 / 1150 Output Total 3550 / 3550 2885 / 2885 1325 / 1325 Balance -2403.33 / -2403.33 -1160.0 / -1160.0 -175 / -175 Lab / Micro Data 02/04/24 05:40 02/04/24 05:40 Labs: Laboratory Results - last 24 hr 02/03/24 06:31: POC Glucose 167 H 02/03/24 08:31: POC Glucose 140 H 02/03/24 11:34: POC Glucose 195 H 02/03/24 16:04: POC Glucose 288 H 02/04/24 05:40: WBC 7.3, RBC 3.36 L, Hgb 9.1 L, Hct 28.9 L, MCV 86.0, MCH 27.1, MCHC 31.5 L, RDW Std Deviation 51.8 H, RDW Coeff of Maia 16.4 H, Plt Count 323, MPV 9.8, Immature Gran % (Auto) 1.000 H, Neut % (Auto) 76.6 H, Lymph % (Auto) 9.8 L, [place] % (Auto) 10.6 H, Eos % (Auto) 1.7, Baso % (Auto) 0.3, Absolute Neuts (auto) 5.6, Absolute Lymphs (auto) 0.71 L, Nucleated RBC % 0, Sodium 137, Potassium 3.3 L, Chloride 105, Carbon Dioxide 23.0, Anion Gap 9, BUN 14, Creatinine 0.73, Estim Creat Clear Calc 64.88, Est GFR (MDRD) Af Amer 138, Est GFR (MDRD) Non-Af 114, BUN/Creatinine Ratio 19.1, Glucose 239 H, Calcium 7.9 L, Total Bilirubin 0.30, AST 56 H, ALT 63 H, Alkaline Phosphatase 566 H, Total Protein 6.4, Albumin 1.6 L, Globulin 4.8 H, Albumin/Globulin Ratio 0.3 L 02/04/24 06:21: POC Glucose 189 H Micro: Microbiology 01/31/24 16:35 Blood Culture (Wb) - Right Hand Blood Culture - Preliminary No growth in 48 hours. 01/31/24 16:32 Blood Culture (Wb) - Left Forearm Blood Culture - Final Escherichia coli 01/31/24 16:32 Urine, Catheterized Urine Culture - Final Escherichia coli Physical Exam Narrative General: Alert, Oriented x3, Cooperative, No apparent distress HEENT: Atraumatic, PERRLA, EOMI, Normocephalic Oral: Moist Mucosa Neck: Supple, No JVD Lungs: Diminished, Normal air movement, No rhonchi, No wheeze, No rales Cardiovascular: Regular rate, Regular Rhythm, Normal S1, Normal S2, No murmurs Abdomen: Soft, Non Tender, Non-Distended, No Hepato-splenomegaly Extremities: No edema, Capillary Refill Less than 3 Seconds Skin: No rashes, No breakdown Musculoskeletal: No Tenderness to Palpation of Joints or Extremities Neurological: No focal neurological deficits, Motor Exam 5/5 strength throughout, Sensory exam intact to light touch and pain Psych/Mental Status: Normal Affect, Appropriate Assessment & Plan Assessment/Plan (1) Acute UTI: (2) Bacteremia: (3) Normocytic anemia: PLAN: Plan #Acute UTI and GNR bacteremia -UA suggestive of UTI is also growing organism and blood cultures preliminarily gram-negative rods -Patient on Zosyn, was initially on Rocephin however given recent hospitalizations and initial concern for gallbladder pathology is changed to Zosyn, presently tolerating this so we will await sensitivities -Patient not having any pain in right upper quadrant and no symptoms consistent with cholecystitis, will monitor and if any further concerns can consider HIDA or surgery consult -Continue IV fluids -02/01: Continue to await culture and sensitivity, continue Zosyn. Patient continues to deny any abdominal pain, will repeat CMP in the a.m. Did have a fever earlier this morning, unclear etiology, fevers resolved, continue to monitor for any other infectious symptoms and continue broad-spectrum antibiotics. If patient spikes another temperature will repeat blood cultures -02/02: Awaiting final cultures patient intermittently with some mildly elevated temps and somewhat lower blood pressure, when BP low this morning patient recultured given bolus of fluids and vancomycin added to regimen, patient did not have any specific complaints at the time of exam however interventions in place and will continue as we monitor cultures, de-escalate as able. LFTs did start to downtrend 02/04/2024: Broad-spectrum antibiotics continued, repeat cultures are pending # Metabolic encephalopathy secondary to acute UTI and gram-negative moncho bacteremia -Improving with treatment of underlying problem -02/01: Improving with treatment of UTI -02/02: Continues to improve #MADELEINE- resolved -Creatinine 1.31 on presentation on the day before was 0.95 -Improved with IV fluids, will decrease rate -02/01: Continued to improve and BUN within normal limits, will hold fluids #Hx TIA/CAD s/p stents and CABG -On asa and plavix, will continue -Continue statin -02/01: Continue present management # Recent ileostomy and poor p.o. intake -Encourage p.o. -Supportive care -Continue mirtazapine -02/01: Continue to encourage increased p.o. intake -02/02: Patient net negative for this admission, will give additional IV fluid, encourage oral intake #Hypokalemia -Replaved #Type 2 diabetes mellitus -Glucose checks and sliding scale insulin -Will decrease patient's long-acting insulin due to poor p.o. intake -02/01: Glucose is variable however within a decent range this a.m., continue present glucose control -02/02: Avoid hypoglycemia, continue present management #GERD -Continue PPI -02/01: No abdominal complaints -02/02: No new complaints #Hypertension -On amlodipine and carvedilol -02/01: Patient remains on Coreg, amlodipine was discontinued to avoid hypotension -02/02: Patient did have low BP earlier, decreased Coreg and added specifically parameters #Chronic BPH with obstruction -Continue home medications -02/01: Patient does have Robb in place at this time DVT: Heparin Charges/Coding Visit Charges Inpatient E&M: 12517 Subs Hosp L2
[2024-02-04 11:55] LABS: Bedside Glucose 260 mg/dL (74-106)
[2024-02-04] MEDS: 0.9% Saline Lock 10 ML Syringe IV (13:43)
[2024-02-04] MEDS: 0.9% Normal Saline (250mL Bag) 250 ML 15 ML IV (13:44)
[2024-02-04 17:06] LABS: Bedside Glucose 341 mg/dL (74-106)
[2024-02-04 17:06] LABS: Bedside Glucose 349 mg/dL (74-106)
[2024-02-04] MEDS: MELATONIN 3 MG TABLET PO (21:42)
[2024-02-04] MEDS: oxyCODONE 5 MG Tablet 2.5 MG PO (21:42)
[2024-02-04] MEDS: Atorvastatin Calcium 40 MG Tablet PO (21:42)
[2024-02-04] MEDS: Mirtazapine 15 MG Tablet PO (21:42)
[2024-02-04] MEDS: Tamsulosin HCl 0.4 MG Capsule 0.8 MG PO (21:43)
[2024-02-04 21:47] LABS: Vancomycin, Trough Level 12.4 ug/mL (5.0-15.0)
--- NOTE | 2024-02-04 21:57 | PCM.RX.CS ---
Consult Antibiotic Management Pharmacy has been consulted to manage selected antibiotic: Vancomycin Type of Intervention Type of Consult: Follow-up Suspected Infection Suspected Infection: Bacteremia Labs Labs: Sodium 137 mmol/L (136-145) 02/04/24 05:40 Potassium 3.3 mmol/L (3.5-5.1) L 02/04/24 05:40 Chloride 105 mmol/L (98-107) 02/04/24 05:40 Carbon Dioxide 23.0 mmol/L (21.0-32.0) 02/04/24 05:40 Anion Gap 9 (5-15) 02/04/24 05:40 BUN 14 mg/dL (7-18) 02/04/24 05:40 Creatinine 0.73 mg/dL (0.70-1.30) 02/04/24 05:40 Est GFR (MDRD) Af Amer 138 mL/min (>60) 02/04/24 05:40 Est GFR (MDRD) Non-Af 114 mL/min (>60) 02/04/24 05:40 BUN/Creatinine Ratio 19.1 RATIO (10-20) 02/04/24 05:40 Glucose 239 mg/dL (74-106) H 02/04/24 05:40 Vancomycin Trough 12.4 ug/mL (5.0-15.0) 02/04/24 21:22 Microbiology Microbiology: Microbiology 01/31/24 16:35 Blood Culture (Wb) - Right Hand Blood Culture - Preliminary No growth in 48 hours. 01/31/24 16:32 Blood Culture (Wb) - Left Forearm Blood Culture - Final Escherichia coli 01/31/24 16:32 Urine, Catheterized Urine Culture - Final Escherichia coli Goal Trough Goal Trough: 15-20 mcg/mL Pharmacy Plan for Drug Dosing Pharmacy Plan for Drug Dosing: VANCOMYCIN LEVEL RECEIVED Current Vancomycin Dose: 500mg Q12H Number of Doses Received: 500mg x2, 1250mg x1 Vancomycin Level: 12.4 Hours Since Last Dose: 10.5 Renal Function: sCr 0.73 Renal Function Trend: stable Lab/Micro: pending Vancomycin Plan/Comments: Increase Vancomycin dosing regimen to 750mg Q12H due to SUBtherapeutic trough level Pending Level: Vancomycin trough @ 21:30 02/05/24 Pharmacy Service will continue to monitor and adjust dosing as required. Follow-Up Labs Follow-Up Labs: Trough: Vancomycin (21:30 02/05/24)
[2024-02-04] MEDS: Vancomycin Trough/Random Due 1 LAB MC (22:11)
[2024-02-04 22:22] LABS: Bedside Glucose 251 mg/dL (74-106)
[2024-02-04] MEDS: Vancomycin HCl 750 MG in 0.9% Normal Saline (250mL Bag) 250 ML 250 MG IV (22:35)
[2024-02-04] MEDS: Ondansetron 4 MG/2 ML Vial IV (23:56)
[2024-02-05] VITALS (8 sets, daily range): BP systolic 105–135; BP diastolic 44–77; PULSE 70–96; RESP 15–18; TEMP 36.4–37.2; O2SAT 96–100
[2024-02-05 01:51] LABS: Bedside Glucose 283 mg/dL (74-106)
[2024-02-05] MEDS: Calcium Carbonate 500 MG Tablet 1000 MG PO ×4 (02:30→21:39)
[2024-02-05] MEDS: Piperacil/Tazobactam 3.375 GM in 0.9% Normal Saline (50mL MB+) 50 ML IV ×2 (05:20→14:29)
[2024-02-05] MEDS: Insulin Lispro 100 UNIT/ML INSULN.PEN SC ×4 (06:31→21:51)
[2024-02-05] MEDS: Ipratropium/Albuterol Sulfate 3 ML AMPUL.NEB INHALATION ×3 (06:43→19:39)
[2024-02-05 06:47] LABS: Absolute Lymphocyte Count 0.82 X10^3/uL (0.83-4.51); Absolute Neutrophil Count 5.5 X10^3/uL (2.0-7.7); Basophil# 0.03 X10^3/uL; Basophil% 0.4 % (0-1); Eosinophil# 0.18 X10^3/uL; Eosinophils% 2.5 % (0-5); Hematocrit 30.3 % (40-54); Hemoglobin 9.5 g/dL (13.0-16.5); Lymphocyte # 0.82 X10^3/ul (0.83-4.51); Lymphocyte % 11.2 % (19-41); Mean Corp Hgb Conc 31.4 g/dL (32-36); Mean Corpuscular Volume 86.1 fL (80-94); Mean Platelet Vol. 9.8 fl (6.2-12.0); Monocyte# 0.64 X10^3/uL; Monocyte% 8.8 % (0-10); NRBC Flagged by Analyzer 0 % (0-5); Neutrophil # 5.49 X10^3/uL (2.7-7.7); Neutrophil % 75.3 % (47-70); Platelet Count 335 K/mm3 (150-450); RBC Distribution Width CV 16.3 % (11.6-14.6); RBC Distribution Width SD 51.2 fl (35.1-43.9); Red Blood Count 3.52 M/mm3 (4.6-6.2); White Blood Count 7.3 K/mm3 (4.4-11.0)
[2024-02-05 06:54] LABS: Bedside Glucose 243 mg/dL (74-106)
[2024-02-05 07:24] LABS: ALB/GLOB Ratio 0.3 RATIO (0.9-2.4); AST(SGOT) 56 U/L (15-37); Alanine Aminotransfer ALT/SGPT 66 U/L (16-61); Albumin, Serum 1.7 g/dL (3.2-5.0); Alkaline Phosphatase 656 U/L (45-117); Anion Gap 7 (5-15); BUN 12 mg/dL (7-18); BUN/Creat Ratio 13.8 RATIO (10-20); Calcium,Total 8.4 mg/dL (8.5-10.1); Chloride 102 mmol/L (98-107); Creatinine, Serum 0.87 mg/dL (0.70-1.30); EST Glomerular Filtration Rate 94 mL/min (>60); Est Glom Filt Rate - Afr Amer 113 mL/min (>60); Estimated Creatinine Clearance 59.66 ml/min; Globulin 5.1 g/dL (2.2-4.2); Glucose 261 mg/dL (74-106); Potassium 3.2 mmol/L (3.5-5.1); Protein, Total 6.8 g/dL (6.4-8.2); Sodium Level 134 mmol/L (136-145)
[2024-02-05] MEDS: DULoxetine Hcl 30 MG Capsule PO (08:24)
[2024-02-05] MEDS: Heparin Injection (Vial) 5,000 UNIT/ML VIAL 5000 UNIT SC ×2 (08:24→21:30)
[2024-02-05] MEDS: Acetaminophen 325 MG Tablet 650 MG PO ×2 (08:24→14:28)
[2024-02-05] MEDS: Clopidogrel Bisulfate 75 MG Tablet PO (08:25)
[2024-02-05] MEDS: Pantoprazole Sodium 40 MG Tablet PO (08:25)
[2024-02-05] MEDS: oxyCODONE 5 MG Tablet 2.5 MG PO ×3 (08:25→21:38)
[2024-02-05] MEDS: Menthol/Lanolin/Calamine/Znox 113 GM Tube 1 APPLIC TOPICAL (08:25)
[2024-02-05] MEDS: Aspirin 81 MG TAB.CHEW PO (08:25)
--- NOTE | 2024-02-05 08:44 | PCM.PN.HOSP ---
Subjective Subjective Doing well, no issues overnight. Can likely de-escalate antibiotics no further episodes of hypotension or dizziness yesterday Objective Data Objective Data Vital Signs: Vital Signs Temp Pulse Resp BP Pulse Ox O2 Del Method 98.4 F 71 16 120/71 98 Room Air 02/05/24 05:32 02/05/24 06:43 02/05/24 06:43 02/05/24 05:32 02/05/24 06:43 02/05/24 06:43 Oxygen Delivery Method Room Air Weight: 111 lb 5.335 oz Body Mass Index (BMI) 17.9 Intake & Output: Intake and Output for Last 24 Hours 02/04/24 02/05/24 02/06/24 03:59 03:59 03:59 Intake Total 1725.0 / 1725.0 2215 / 2215 100 / 100 Output Total 2885 / 2885 2375 / 2375 Balance -1160.0 / -1160.0 -160 / -160 100 / 100 Lab / Micro Data 02/05/24 06:12 02/05/24 06:12 Labs: Laboratory Results - last 24 hr 02/03/24 21:42: POC Glucose 341 H 02/03/24 21:44: POC Glucose 349 H 02/04/24 11:31: POC Glucose 260 H 02/04/24 16:51: POC Glucose 283 H 02/04/24 21:22: Vancomycin Trough 12.4 02/04/24 21:47: POC Glucose 251 H 02/05/24 06:12: WBC 7.3, RBC 3.52 L, Hgb 9.5 L, Hct 30.3 L, MCV 86.1, MCH 27.0, MCHC 31.4 L, RDW Std Deviation 51.2 H, RDW Coeff of Maia 16.3 H, Plt Count 335, MPV 9.8, Immature Gran % (Auto) 1.800 H, Neut % (Auto) 75.3 H, Lymph % (Auto) 11.2 L, [place] % (Auto) 8.8, Eos % (Auto) 2.5, Baso % (Auto) 0.4, Absolute Neuts (auto) 5.5, Absolute Lymphs (auto) 0.82 L, Nucleated RBC % 0, Sodium 134 L, Potassium 3.2 L, Chloride 102, Carbon Dioxide 25.0, Anion Gap 7, BUN 12, Creatinine 0.87, Estim Creat Clear Calc 59.66, Est GFR (MDRD) Af Amer 113, Est GFR (MDRD) Non-Af 94, BUN/Creatinine Ratio 13.8, Glucose 261 H, Calcium 8.4 L, Total Bilirubin 0.40, AST 56 H, ALT 66 H, Alkaline Phosphatase 656 H, Total Protein 6.8, Albumin 1.7 L, Globulin 5.1 H, Albumin/Globulin Ratio 0.3 L 02/05/24 06:30: POC Glucose 243 H Micro: Microbiology 01/31/24 16:35 Blood Culture (Wb) - Right Hand Blood Culture - Preliminary No growth in 48 hours. 01/31/24 16:32 Blood Culture (Wb) - Left Forearm Blood Culture - Final Escherichia coli 01/31/24 16:32 Urine, Catheterized Urine Culture - Final Escherichia coli Physical Exam Narrative General: Alert, Oriented x3, Cooperative, No apparent distress HEENT: Atraumatic, PERRLA, EOMI, Normocephalic Oral: Moist Mucosa Neck: Supple, No JVD Lungs: Diminished, Normal air movement, No rhonchi, No wheeze, No rales Cardiovascular: Regular rate, Regular Rhythm, Normal S1, Normal S2, No murmurs Abdomen: Soft, Non Tender, Non-Distended, No Hepato-splenomegaly Extremities: No edema, Capillary Refill Less than 3 Seconds Skin: No rashes, No breakdown Musculoskeletal: No Tenderness to Palpation of Joints or Extremities Neurological: No focal neurological deficits, Motor Exam 5/5 strength throughout, Sensory exam intact to light touch and pain Psych/Mental Status: Normal Affect, Appropriate Assessment & Plan Assessment/Plan (1) Acute UTI: (2) Bacteremia: (3) Normocytic anemia: PLAN: Plan #Acute UTI and GNR bacteremia -UA suggestive of UTI is also growing organism and blood cultures preliminarily gram-negative rods -Patient on Zosyn, was initially on Rocephin however given recent hospitalizations and initial concern for gallbladder pathology is changed to Zosyn, presently tolerating this so we will await sensitivities -Patient not having any pain in right upper quadrant and no symptoms consistent with cholecystitis, will monitor and if any further concerns can consider HIDA or surgery consult -Continue IV fluids -02/01: Continue to await culture and sensitivity, continue Zosyn. Patient continues to deny any abdominal pain, will repeat CMP in the a.m. Did have a fever earlier this morning, unclear etiology, fevers resolved, continue to monitor for any other infectious symptoms and continue broad-spectrum antibiotics. If patient spikes another temperature will repeat blood cultures -02/02: Awaiting final cultures patient intermittently with some mildly elevated temps and somewhat lower blood pressure, when BP low this morning patient recultured given bolus of fluids and vancomycin added to regimen, patient did not have any specific complaints at the time of exam however interventions in place and will continue as we monitor cultures, de-escalate as able. LFTs did start to downtrend 02/04/2024: Broad-spectrum antibiotics continued, repeat cultures are pending 02/05/2024: Cultures are still pending however he is showing much improvement can likely de-escalate today or tomorrow # Metabolic encephalopathy secondary to acute UTI and gram-negative moncho bacteremia -Improving with treatment of underlying problem -02/01: Improving with treatment of UTI -02/02: Continues to improve #MADELEINE- resolved -Creatinine 1.31 on presentation on the day before was 0.95 -Improved with IV fluids, will decrease rate -02/01: Continued to improve and BUN within normal limits, will hold fluids #Hx TIA/CAD s/p stents and CABG -On asa and plavix, will continue -Continue statin -02/01: Continue present management # Recent ileostomy and poor p.o. intake -Encourage p.o. -Supportive care -Continue mirtazapine -02/01: Continue to encourage increased p.o. intake -02/02: Patient net negative for this admission, will give additional IV fluid, encourage oral intake #Hypokalemia -Replaced #Type 2 diabetes mellitus -Glucose checks and sliding scale insulin -Will decrease patient's long-acting insulin due to poor p.o. intake -02/01: Glucose is variable however within a decent range this a.m., continue present glucose control -02/02: Avoid hypoglycemia, continue present management #GERD -Continue PPI -02/01: No abdominal complaints -02/02: No new complaints #Hypertension -On amlodipine and carvedilol -02/01: Patient remains on Coreg, amlodipine was discontinued to avoid hypotension -02/02: Patient did have low BP earlier, decreased Coreg and added specifically parameters #Chronic BPH with obstruction -Continue home medications -02/01: Patient does have Robb in place at this time DVT: Heparin Charges/Coding Visit Charges Inpatient E&M: 73293 Subs Hosp L2
[2024-02-05] MEDS: Insulin Glargine-YFGN 100 UNIT/ML Pen 10 UNIT SC ×2 (09:53→21:53)
[2024-02-05] MEDS: Carvedilol 6.25 MG Tablet PO ×2 (09:54→21:29)
[2024-02-05] MEDS: Vancomycin HCl 750 MG in 0.9% Normal Saline (250mL Bag) 250 ML 250 MG IV ×2 (09:54→22:30)
--- NOTE | 2024-02-05 10:24 | WOUNDNOTE ---
wound photo: deven
--- NOTE | 2024-02-05 10:45 | CASEMGMT ---
Social Work Spoke with Dr. Rodriguez regarding discharge planning. Per provider, okay to start SNF precert process with the insurance. Updated Discharge assistant cook. Plan: intermediate level of care, pending insurance authorization to [facility]. -DEANNA Mckenzie
--- NOTE | 2024-02-05 10:54 | CASEMGMT ---
Discharge Planning Updates sent to [facility] via [facility], [facility] [employer]. Requested that precert be started. Patsy Riley DC Planning Asst.
[2024-02-05 11:30] LABS: Bedside Glucose 254 mg/dL (74-106)
[2024-02-05] MEDS: Ondansetron 4 MG/2 ML Vial IV (14:35)
[2024-02-05] MEDS: 0.9% Saline Lock 10 ML Syringe IV (14:35)
[2024-02-05 16:52] LABS: Bedside Glucose 331 mg/dL (74-106)
[2024-02-05] MEDS: Atorvastatin Calcium 40 MG Tablet PO (21:29)
[2024-02-05] MEDS: Tamsulosin HCl 0.4 MG Capsule 0.8 MG PO (21:29)
[2024-02-05] MEDS: Mirtazapine 15 MG Tablet PO (21:29)
[2024-02-05 22:13] LABS: Vancomycin, Trough Level 17.7 ug/mL (5.0-15.0)
[2024-02-05] MEDS: Vancomycin Trough/Random Due 1 LAB MC (22:32)
[2024-02-05] MEDS: MELATONIN 3 MG TABLET PO (23:20)
[2024-02-05 23:40] LABS: Bedside Glucose 267 mg/dL (74-106)
[2024-02-06] VITALS (7 sets, daily range): BP systolic 128–151; BP diastolic 61–73; PULSE 74–86; RESP 15–24; TEMP 36.8–37.1; O2SAT 95–100
[2024-02-06] MEDS: Piperacil/Tazobactam 3.375 GM in 0.9% Normal Saline (50mL MB+) 50 ML IV ×4 (00:17→22:15)
--- NOTE | 2024-02-06 02:01 | PCM.RX.CS ---
Consult Antibiotic Management Pharmacy has been consulted to manage selected antibiotic: Vancomycin Type of Intervention Type of Consult: Follow-up Labs Labs: Sodium 134 mmol/L (136-145) L 02/05/24 06:12 Potassium 3.2 mmol/L (3.5-5.1) L 02/05/24 06:12 Chloride 102 mmol/L (98-107) 02/05/24 06:12 Carbon Dioxide 25.0 mmol/L (21.0-32.0) 02/05/24 06:12 Anion Gap 7 (5-15) 02/05/24 06:12 BUN 12 mg/dL (7-18) 02/05/24 06:12 Creatinine 0.87 mg/dL (0.70-1.30) 02/05/24 06:12 Est GFR (MDRD) Af Amer 113 mL/min (>60) 02/05/24 06:12 Est GFR (MDRD) Non-Af 94 mL/min (>60) 02/05/24 06:12 BUN/Creatinine Ratio 13.8 RATIO (10-20) 02/05/24 06:12 Glucose 261 mg/dL (74-106) H 02/05/24 06:12 Vancomycin Trough 17.7 ug/mL (5.0-15.0) H 02/05/24 21:27 Microbiology Microbiology: Microbiology 02/03/24 09:40 Urine Catheter - Catheter Urine Culture - Final Presumptive C albicans 01/31/24 16:35 Blood Culture (Wb) - Right Hand Blood Culture - Preliminary No growth in 48 hours. 01/31/24 16:32 Blood Culture (Wb) - Left Forearm Blood Culture - Final Escherichia coli 01/31/24 16:32 Urine, Catheterized Urine Culture - Final Escherichia coli Goal Trough Goal Trough: 15-20 mcg/mL Pharmacy Plan for Drug Dosing Pharmacy Plan for Drug Dosing: Pharmacy Service will continue to monitor and adjust dosing as required. TROUGH 17.7 @ 11.5 HOURS. NO CHANGES, FOLLOW UP TROUGH IN 2 DAYS Follow-Up Labs Follow-Up Labs: Trough: Vancomycin Date/Time Labs Ordered Labs to be done on [date and time ordered]: 02/06 @ 7407
[2024-02-06] MEDS: oxyCODONE 5 MG Tablet 2.5 MG PO ×4 (04:31→22:48)
[2024-02-06] MEDS: Calcium Carbonate 500 MG Tablet 1000 MG PO ×4 (04:32→22:48)
[2024-02-06 06:52] LABS: Bedside Glucose 143 mg/dL (74-106)
[2024-02-06 07:32] LABS: Absolute Lymphocyte Count 1.09 X10^3/uL (0.83-4.51); Absolute Neutrophil Count 6.5 X10^3/uL (2.0-7.7); Basophil# 0.03 X10^3/uL; Basophil% 0.3 % (0-1); Eosinophil# 0.22 X10^3/uL; Eosinophils% 2.5 % (0-5); Hematocrit 30.1 % (40-54); Hemoglobin 9.4 g/dL (13.0-16.5); Lymphocyte # 1.09 X10^3/ul (0.83-4.51); Lymphocyte % 12.3 % (19-41); Mean Corp Hgb Conc 31.2 g/dL (32-36); Mean Corpuscular Hgb 27.2 pg (27.0-32.0); Mean Platelet Vol. 9.7 fl (6.2-12.0); Monocyte# 0.77 X10^3/uL; Monocyte% 8.7 % (0-10); NRBC Flagged by Analyzer 0.2 % (0-5); Neutrophil % 73.7 % (47-70); Platelet Count 397 K/mm3 (150-450); RBC Distribution Width CV 16.4 % (11.6-14.6); Red Blood Count 3.46 M/mm3 (4.6-6.2); White Blood Count 8.8 K/mm3 (4.4-11.0)
[2024-02-06] MEDS: Ipratropium/Albuterol Sulfate 3 ML AMPUL.NEB INHALATION ×3 (07:32→19:50)
--- NOTE | 2024-02-06 07:58 | WOUNDNOTE ---
the ileostomy appliance was changed earlier this am. there has been a small amount of mucous from the colostomy appliance LLQ. this nurse had just applied the Mepilex dressing to the sacrum yesterday, so will leave in place for now. will continue to monitor.
[2024-02-06 08:00] LABS: ALB/GLOB Ratio 0.3 RATIO (0.9-2.4); AST(SGOT) 46 U/L (15-37); Alanine Aminotransfer ALT/SGPT 57 U/L (16-61); Albumin, Serum 1.7 g/dL (3.2-5.0); Alkaline Phosphatase 620 U/L (45-117); Anion Gap 5 (5-15); BUN 10 mg/dL (7-18); BUN/Creat Ratio 11.3 RATIO (10-20); Calcium,Total 8.4 mg/dL (8.5-10.1); Chloride 102 mmol/L (98-107); Creatinine, Serum 0.89 mg/dL (0.70-1.30); EST Glomerular Filtration Rate 91 mL/min (>60); Est Glom Filt Rate - Afr Amer 111 mL/min (>60); Estimated Creatinine Clearance 58.32 ml/min; Globulin 5.1 g/dL (2.2-4.2); Glucose 154 mg/dL (74-106); Potassium 3.3 mmol/L (3.5-5.1); Protein, Total 6.8 g/dL (6.4-8.2); Sodium Level 136 mmol/L (136-145)
[2024-02-06] MEDS: Acetaminophen 325 MG Tablet 650 MG PO ×3 (09:21→20:24)
[2024-02-06] MEDS: Insulin Glargine-YFGN 100 UNIT/ML Pen 10 UNIT SC ×2 (09:21→22:16)
[2024-02-06] MEDS: Heparin Injection (Vial) 5,000 UNIT/ML VIAL 5000 UNIT SC ×2 (09:22→22:17)
[2024-02-06] MEDS: DULoxetine Hcl 30 MG Capsule PO (09:22)
[2024-02-06] MEDS: Pantoprazole Sodium 40 MG Tablet PO (09:22)
[2024-02-06] MEDS: Carvedilol 6.25 MG Tablet PO ×2 (09:22→22:15)
[2024-02-06] MEDS: Clopidogrel Bisulfate 75 MG Tablet PO (09:22)
[2024-02-06] MEDS: Aspirin 81 MG TAB.CHEW PO (09:22)
--- NOTE | 2024-02-06 10:05 | PCM.PN.HOSP ---
Subjective Subjective Did not sleep well overnight Objective Data Objective Data Vital Signs: Vital Signs Temp Pulse Resp BP Pulse Ox O2 Del Method 98.5 F 85 18 128/61 H 99 Room Air 02/06/24 09:15 02/06/24 09:15 02/06/24 09:15 02/06/24 09:15 02/06/24 09:15 02/06/24 09:15 Oxygen Delivery Method Room Air Weight: 111 lb 5.335 oz Body Mass Index (BMI) 17.9 Intake & Output: Intake and Output for Last 24 Hours 02/05/24 02/06/24 02/07/24 03:59 03:59 03:59 Intake Total 2215 / 2215 989.00 / 989.00 250 / 250 Output Total 2375 / 2375 1400 / 1400 1700 / 1700 Balance -160 / -160 -411.00 / -411.00 -1450 / -1450 Lab / Micro Data 02/06/24 06:36 02/06/24 06:36 Labs: Laboratory Results - last 24 hr 02/05/24 11:08: POC Glucose 254 H 02/05/24 16:24: POC Glucose 331 H 02/05/24 21:27: Vancomycin Trough 17.7 H 02/05/24 21:49: POC Glucose 267 H 02/06/24 06:27: POC Glucose 143 H 02/06/24 06:36: WBC 8.8, RBC 3.46 L, Hgb 9.4 L, Hct 30.1 L, MCV 87.0, MCH 27.2, MCHC 31.2 L, RDW Std Deviation 52.0 H, RDW Coeff of Maia 16.4 H, Plt Count 397, MPV 9.7, Immature Gran % (Auto) 2.500 H, Neut % (Auto) 73.7 H, Lymph % (Auto) 12.3 L, [place] % (Auto) 8.7, Eos % (Auto) 2.5, Baso % (Auto) 0.3, Absolute Neuts (auto) 6.5, Absolute Lymphs (auto) 1.09, Nucleated RBC % 0.2, Sodium 136, Potassium 3.3 L, Chloride 102, Carbon Dioxide 29.0, Anion Gap 5, BUN 10, Creatinine 0.89, Estim Creat Clear Calc 58.32, Est GFR (MDRD) Af Amer 111, Est GFR (MDRD) Non-Af 91, BUN/Creatinine Ratio 11.3, Glucose 154 H, Calcium 8.4 L, Total Bilirubin 0.40, AST 46 H, ALT 57, Alkaline Phosphatase 620 H, Total Protein 6.8, Albumin 1.7 L, Globulin 5.1 H, Albumin/Globulin Ratio 0.3 L Micro: Microbiology 01/31/24 16:35 Blood Culture (Wb) - Right Hand Blood Culture - Final No growth in 5 days. 02/03/24 08:50 Blood Culture (Wb) - Right Hand Blood Culture - Preliminary No growth in 48 hours. 02/03/24 08:40 Blood Culture (Wb) - Anticubital Right Blood Culture - Preliminary No growth in 48 hours. 02/03/24 09:40 Urine Catheter - Catheter Urine Culture - Final Presumptive C albicans 01/31/24 16:32 Blood Culture (Wb) - Left Forearm Blood Culture - Final Escherichia coli 01/31/24 16:32 Urine, Catheterized Urine Culture - Final Escherichia coli Physical Exam Narrative General: Alert, Oriented x3, Cooperative, No apparent distress HEENT: Atraumatic, PERRLA, EOMI, Normocephalic Oral: Moist Mucosa Neck: Supple, No JVD Lungs: Diminished, Normal air movement, No rhonchi, No wheeze, No rales Cardiovascular: Regular rate, Regular Rhythm, Normal S1, Normal S2, No murmurs Abdomen: Soft, Non Tender, Non-Distended, No Hepato-splenomegaly Extremities: No edema, Capillary Refill Less than 3 Seconds Skin: No rashes, No breakdown Musculoskeletal: No Tenderness to Palpation of Joints or Extremities Neurological: No focal neurological deficits, Motor Exam 5/5 strength throughout, Sensory exam intact to light touch and pain Psych/Mental Status: Normal Affect, Appropriate Assessment & Plan Assessment/Plan (1) Acute UTI: (2) Bacteremia: (3) Normocytic anemia: PLAN: Plan #Acute UTI and GNR bacteremia -UA suggestive of UTI is also growing organism and blood cultures preliminarily gram-negative rods -Patient on Zosyn, was initially on Rocephin however given recent hospitalizations and initial concern for gallbladder pathology is changed to Zosyn, presently tolerating this so we will await sensitivities -Patient not having any pain in right upper quadrant and no symptoms consistent with cholecystitis, will monitor and if any further concerns can consider HIDA or surgery consult -Continue IV fluids -02/01: Continue to await culture and sensitivity, continue Zosyn. Patient continues to deny any abdominal pain, will repeat CMP in the a.m. Did have a fever earlier this morning, unclear etiology, fevers resolved, continue to monitor for any other infectious symptoms and continue broad-spectrum antibiotics. If patient spikes another temperature will repeat blood cultures -02/02: Awaiting final cultures patient intermittently with some mildly elevated temps and somewhat lower blood pressure, when BP low this morning patient recultured given bolus of fluids and vancomycin added to regimen, patient did not have any specific complaints at the time of exam however interventions in place and will continue as we monitor cultures, de-escalate as able. LFTs did start to downtrend 02/04/2024: Broad-spectrum antibiotics continued, repeat cultures are pending 02/05/2024: Cultures are still pending however he is showing much improvement can likely de-escalate today or tomorrow 02/06/2024: Cultures are negative will de-escalate back to just Zosyn and discontinue the vancomycin, awaiting pre-CERT # Metabolic encephalopathy secondary to acute UTI and gram-negative moncho bacteremia -Improving with treatment of underlying problem -02/01: Improving with treatment of UTI -02/02: Continues to improve #MADELEINE- resolved -Creatinine 1.31 on presentation on the day before was 0.95 -Improved with IV fluids, will decrease rate -02/01: Continued to improve and BUN within normal limits, will hold fluids #Hx TIA/CAD s/p stents and CABG -On asa and plavix, will continue -Continue statin -02/01: Continue present management # Recent ileostomy and poor p.o. intake -Encourage p.o. -Supportive care -Continue mirtazapine -02/01: Continue to encourage increased p.o. intake -02/02: Patient net negative for this admission, will give additional IV fluid, encourage oral intake #Hypokalemia -Replaced #Type 2 diabetes mellitus -Glucose checks and sliding scale insulin -Will decrease patient's long-acting insulin due to poor p.o. intake -02/01: Glucose is variable however within a decent range this a.m., continue present glucose control -02/02: Avoid hypoglycemia, continue present management #GERD -Continue PPI -02/01: No abdominal complaints -02/02: No new complaints #Hypertension -On amlodipine and carvedilol -02/01: Patient remains on Coreg, amlodipine was discontinued to avoid hypotension -02/02: Patient did have low BP earlier, decreased Coreg and added specifically parameters #Chronic BPH with obstruction -Continue home medications -02/01: Patient does have Robb in place at this time DVT: Heparin Charges/Coding Visit Charges Inpatient E&M: 02168 Subs Hosp L2
[2024-02-06 11:08] LABS: Bedside Glucose 212 mg/dL (74-106)
[2024-02-06] MEDS: Insulin Lispro 100 UNIT/ML INSULN.PEN SC ×3 (11:52→22:16)
[2024-02-06 17:14] LABS: Bedside Glucose 205 mg/dL (74-106)
[2024-02-06] MEDS: Atorvastatin Calcium 40 MG Tablet PO (22:15)
[2024-02-06] MEDS: Tamsulosin HCl 0.4 MG Capsule 0.8 MG PO (22:15)
[2024-02-06] MEDS: Mirtazapine 15 MG Tablet PO (22:15)
[2024-02-06] MEDS: MELATONIN 3 MG TABLET PO (22:48)
[2024-02-07 00:26] LABS: Bedside Glucose 210 mg/dL (74-106)
[2024-02-07 03:35] VITALS: BP 161/75; PULSE 71; RESP 16; TEMP 36.6; O2SAT 99
[2024-02-07] MEDS: Acetaminophen 325 MG Tablet 650 MG PO ×5 (03:48→23:42)
[2024-02-07] MEDS: Piperacil/Tazobactam 3.375 GM in 0.9% Normal Saline (50mL MB+) 50 ML IV ×3 (06:10→21:07)
[2024-02-07 06:32] LABS: Bedside Glucose 99 mg/dL (74-106)
[2024-02-07] MEDS: Ipratropium/Albuterol Sulfate 3 ML AMPUL.NEB INHALATION ×2 (06:50→19:29)
[2024-02-07 06:51] VITALS: PULSE 76; RESP 18; O2SAT 96
--- NOTE | 2024-02-07 08:05 | CASEMGMT ---
Discharge Planning Requested updates sent via [facility] to [facility]. Patsy Riley DC Planning Asst.
[2024-02-07 08:34] VITALS: BP 126/71; PULSE 78; RESP 16; TEMP 36.9; O2SAT 99
[2024-02-07] MEDS: Ondansetron 4 MG/2 ML Vial IV (08:44)
[2024-02-07] MEDS: Heparin Injection (Vial) 5,000 UNIT/ML VIAL 5000 UNIT SC ×2 (08:44→21:07)
[2024-02-07] MEDS: oxyCODONE 5 MG Tablet 2.5 MG PO ×3 (08:44→21:13)
[2024-02-07] MEDS: Pantoprazole Sodium 40 MG Tablet PO (08:45)
[2024-02-07] MEDS: Aspirin 81 MG TAB.CHEW PO (08:46)
[2024-02-07] MEDS: Carvedilol 6.25 MG Tablet PO ×2 (08:46→21:08)
[2024-02-07] MEDS: Clopidogrel Bisulfate 75 MG Tablet PO (08:46)
[2024-02-07] MEDS: Calcium Carbonate 500 MG Tablet 1000 MG PO ×3 (08:46→23:38)
[2024-02-07] MEDS: DULoxetine Hcl 30 MG Capsule PO (08:46)
[2024-02-07] MEDS: Insulin Glargine-YFGN 100 UNIT/ML Pen 10 UNIT SC ×2 (08:46→21:08)
[2024-02-07] MEDS: 0.9% Saline Lock 10 ML Syringe IV (08:47)
--- NOTE | 2024-02-07 09:35 | WOUNDNOTE ---
Ileostomy and colostomy appliances are intact. no sign of leak noted. just a small amount of mucous noted in the colostomy appliance. the ileostomy was emptied for 125cc's mushy brown stool. pt set up for breakfast. denies further needs at this time.
[2024-02-07] MEDS: Insulin Lispro 100 UNIT/ML INSULN.PEN SC ×2 (11:18→21:07)
[2024-02-07 11:38] LABS: Bedside Glucose 151 mg/dL (74-106)
--- NOTE | 2024-02-07 13:24 | PCM.PN.HOSP ---
Subjective Subjective Doing well, no issues overnight Objective Data Objective Data Vital Signs: Vital Signs Temp Pulse Resp BP Pulse Ox O2 Del Method 98.4 F 78 16 126/71 H 99 Room Air 02/07/24 08:34 02/07/24 08:34 02/07/24 08:34 02/07/24 08:34 02/07/24 08:34 02/07/24 08:34 Oxygen Delivery Method Room Air Weight: 111 lb 5.335 oz Body Mass Index (BMI) 17.9 Intake & Output: Intake and Output for Last 24 Hours 02/06/24 02/07/24 02/08/24 03:59 03:59 03:59 Intake Total 989.00 / 989.00 854.25 / 854.25 286.75 / 286.75 Output Total 1400 / 1400 2850 / 2850 1100 / 1100 Balance -411.00 / -411.00 -1995.75 / -1995.75 -813.25 / -813.25 Medical Nutrition Assessment Dietitian: Malnutrition Criteria Met Start: 02/01/24 15:36 Freq: Status: Active Protocol: Document 02/06/24 14:25 NE (Rec: 02/06/24 14:26 NE [id number]) Nutrition Malnutrition Evidence of Malnutrition Exists Yes Malnutrition (severe): Chronic Evidenced By Suboptimal Energy Intake ( Severe),Weight Loss (Severe), Physical Changes (Severe) Clinical Problem Chronic Disease or Condition Related Malnutrition Etiology related to colorectal cancer Signs/Symptoms weight loss of >20% x 3 months , energy intake <75% x >1 month, multiple areas of severe muscle mass wasting Status Active Problem Recommendation Dietitian Recommendations/Changes Continue Regular diet Continue 120 mL Glucerna 4x/d (440 kcal, 20 g protein total) since patient likes it Order fresh aquino milkshake tonight for dinner May need to consider alternate route for nutrition since meal intake has been <50% x >5 days. Lab / Micro Data 02/06/24 06:36 02/06/24 06:36 Labs: Laboratory Results - last 24 hr 02/06/24 16:47: POC Glucose 205 H 02/06/24 22:11: POC Glucose 210 H 02/07/24 06:13: POC Glucose 99 02/07/24 11:17: POC Glucose 151 H Micro: Microbiology 01/31/24 16:35 Blood Culture (Wb) - Right Hand Blood Culture - Final No growth in 5 days. 02/03/24 08:50 Blood Culture (Wb) - Right Hand Blood Culture - Preliminary No growth in 48 hours. 02/03/24 08:40 Blood Culture (Wb) - Anticubital Right Blood Culture - Preliminary No growth in 48 hours. 02/03/24 09:40 Urine Catheter - Catheter Urine Culture - Final Presumptive C albicans 01/31/24 16:32 Blood Culture (Wb) - Left Forearm Blood Culture - Final Escherichia coli 01/31/24 16:32 Urine, Catheterized Urine Culture - Final Escherichia coli Physical Exam Narrative General: Alert, Oriented x3, Cooperative, No apparent distress HEENT: Atraumatic, PERRLA, EOMI, Normocephalic Oral: Moist Mucosa Neck: Supple, No JVD Lungs: Diminished, Normal air movement, No rhonchi, No wheeze, No rales Cardiovascular: Regular rate, Regular Rhythm, Normal S1, Normal S2, No murmurs Abdomen: Soft, Non Tender, Non-Distended, No Hepato-splenomegaly Extremities: No edema, Capillary Refill Less than 3 Seconds Skin: No rashes, No breakdown Musculoskeletal: No Tenderness to Palpation of Joints or Extremities Neurological: No focal neurological deficits, Motor Exam 5/5 strength throughout, Sensory exam intact to light touch and pain Psych/Mental Status: Normal Affect, Appropriate Assessment & Plan Assessment/Plan (1) Acute UTI: (2) Bacteremia: (3) Normocytic anemia: PLAN: Plan #Acute UTI and GNR bacteremia -UA suggestive of UTI is also growing organism and blood cultures preliminarily gram-negative rods -Patient on Zosyn, was initially on Rocephin however given recent hospitalizations and initial concern for gallbladder pathology is changed to Zosyn, presently tolerating this so we will await sensitivities -Patient not having any pain in right upper quadrant and no symptoms consistent with cholecystitis, will monitor and if any further concerns can consider HIDA or surgery consult -Continue IV fluids -02/01: Continue to await culture and sensitivity, continue Zosyn. Patient continues to deny any abdominal pain, will repeat CMP in the a.m. Did have a fever earlier this morning, unclear etiology, fevers resolved, continue to monitor for any other infectious symptoms and continue broad-spectrum antibiotics. If patient spikes another temperature will repeat blood cultures -02/02: Awaiting final cultures patient intermittently with some mildly elevated temps and somewhat lower blood pressure, when BP low this morning patient recultured given bolus of fluids and vancomycin added to regimen, patient did not have any specific complaints at the time of exam however interventions in place and will continue as we monitor cultures, de-escalate as able. LFTs did start to downtrend 02/04/2024: Broad-spectrum antibiotics continued, repeat cultures are pending 02/05/2024: Cultures are still pending however he is showing much improvement can likely de-escalate today or tomorrow 02/06/2024: Cultures are negative will de-escalate back to just Zosyn and discontinue the vancomycin, awaiting pre-CERT 02/07/2024: Awaiting pre-CERT # Metabolic encephalopathy secondary to acute UTI and gram-negative moncho bacteremia -Improving with treatment of underlying problem -02/01: Improving with treatment of UTI -02/02: Continues to improve #MADELEINE- resolved -Creatinine 1.31 on presentation on the day before was 0.95 -Improved with IV fluids, will decrease rate -02/01: Continued to improve and BUN within normal limits, will hold fluids #Hx TIA/CAD s/p stents and CABG -On asa and plavix, will continue -Continue statin -02/01: Continue present management # Recent ileostomy and poor p.o. intake -Encourage p.o. -Supportive care -Continue mirtazapine -02/01: Continue to encourage increased p.o. intake -02/02: Patient net negative for this admission, will give additional IV fluid, encourage oral intake #Hypokalemia -Replaced #Type 2 diabetes mellitus -Glucose checks and sliding scale insulin -Will decrease patient's long-acting insulin due to poor p.o. intake -02/01: Glucose is variable however within a decent range this a.m., continue present glucose control -02/02: Avoid hypoglycemia, continue present management #GERD -Continue PPI -02/01: No abdominal complaints -02/02: No new complaints #Hypertension -On amlodipine and carvedilol -02/01: Patient remains on Coreg, amlodipine was discontinued to avoid hypotension -02/02: Patient did have low BP earlier, decreased Coreg and added specifically parameters #Chronic BPH with obstruction -Continue home medications -6/28: Patient does have Robb in place at this time DVT: Heparin Charges/Coding Visit Charges Inpatient E&M: 04561 Subs Hosp L1
[2024-02-07] MEDS: 0.9% Normal Saline (250mL Bag) 250 ML 15 ML IV (13:46)
[2024-02-07 14:00] VITALS: BP 123/73; PULSE 83; RESP 16; TEMP 36.8; O2SAT 98
--- NOTE | 2024-02-07 16:20 | CASEMGMT ---
Social Work SW met with pt and informed that precert was still pending with insurance. Pt stating he does not want to return to [facility] but wants to go home. SW called pt's to discuss dc plan. states she is unable to care for pt at home due to current condition and she does work during the day. Pt's states she will speak with pt and explain need to return to SNF. SW reviewed therapy notes and pt is mod A x2 for sit to stand and is not able to ambulate. Pt max A for most ADLs. reports unable to provide this level of care and does not have help at home. SW will continue to follow for dc planning. plan: Return to [facility], pending marie S SHAUN Asencio
[2024-02-07 19:29] VITALS: PULSE 87; RESP 18
[2024-02-07 20:10] VITALS: BP 153/78; PULSE 92; RESP 16; TEMP 36.8; O2SAT 98
[2024-02-07] MEDS: Tamsulosin HCl 0.4 MG Capsule 0.8 MG PO (21:07)
[2024-02-07] MEDS: Atorvastatin Calcium 40 MG Tablet PO (21:08)
[2024-02-07] MEDS: Mirtazapine 15 MG Tablet PO (21:09)
[2024-02-07] MEDS: MELATONIN 3 MG TABLET PO (21:13)
[2024-02-07 21:35] LABS: Bedside Glucose 197 mg/dL (74-106)
[2024-02-08] VITALS (8 sets, daily range): BP systolic 116–143; BP diastolic 63–75; PULSE 79–89; RESP 14–19; TEMP 36.6–37.2; O2SAT 95–98
[2024-02-08] MEDS: Piperacil/Tazobactam 3.375 GM in 0.9% Normal Saline (50mL MB+) 50 ML IV ×3 (06:00→22:10)
[2024-02-08 06:27] LABS: Bedside Glucose 135 mg/dL (74-106)
[2024-02-08] MEDS: Ipratropium/Albuterol Sulfate 3 ML AMPUL.NEB INHALATION ×3 (06:38→19:07)
[2024-02-08 07:55] LABS: Anion Gap 9 (5-15); BUN 11 mg/dL (7-18); BUN/Creat Ratio 14.6 RATIO (10-20); Chloride 101 mmol/L (98-107); Creatinine, Serum 0.75 mg/dL (0.70-1.30); EST Glomerular Filtration Rate 110 mL/min (>60); Est Glom Filt Rate - Afr Amer 133 mL/min (>60); Estimated Creatinine Clearance 64.88 ml/min; Glucose 134 mg/dL (74-106); Magnesium 0.9 mg/dL (1.6-2.6); Phosphorus 2.9 mg/dL (2.5-4.9); Potassium 2.9 mmol/L (3.5-5.1); Sodium Level 138 mmol/L (136-145)
--- NOTE | 2024-02-08 08:03 | NURSING ---
Critcal value : mag 0.9. Dr Rodriguez notified in person.
--- NOTE | 2024-02-08 08:17 | PN.HOSP_ITS ---
Subjective Subjective Doing well, no issues overnight Objective Data Objective Data Vital Signs: Vital Signs Temp Pulse Resp BP Pulse Ox O2 Del Method 97.9 F 81 16 134/75 H 95 Room Air 02/08/24 07:42 02/08/24 07:42 02/08/24 07:42 02/08/24 07:42 02/08/24 07:45 02/08/24 07:45 Oxygen Delivery Method Room Air Weight: 111 lb 5.335 oz Body Mass Index (BMI) 17.9 Intake & Output: Intake and Output for Last 24 Hours 02/07/24 02/08/24 02/09/24 03:59 03:59 03:59 Intake Total 854.25 / 854.25 435.75 / 435.75 Output Total 2850 / 2850 2175 / 2175 575 / 575 Balance -1994.75 / -1994.75 -1739.25 / -1739.25 -575 / -575 Medical Nutrition Assessment Dietitian: Malnutrition Criteria Met Start: 02/01/24 15:36 Freq: Status: Active Protocol: Document 02/06/24 14:25 [place] (Rec: 02/06/24 14:26 [place] [id number]) Nutrition Malnutrition Evidence of Malnutrition Exists Yes Malnutrition (severe): Chronic Evidenced By Suboptimal Energy Intake ( Severe),Weight Loss (Severe), Physical Changes (Severe) Clinical Problem Chronic Disease or Condition Related Malnutrition Etiology related to colorectal cancer Signs/Symptoms weight loss of >20% x 3 months , energy intake <75% x >1 month, multiple areas of severe muscle mass wasting Status Active Problem Recommendation Dietitian Recommendations/Changes Continue Regular diet Continue 120 mL Glucerna 4x/d (440 kcal, 20 g protein total) since patient likes it Order fresh aquino milkshake tonight for dinner May need to consider alternate route for nutrition since meal intake has been <50% x >5 days. Lab / Micro Data 02/06/24 06:36 02/08/24 06:26 Labs: Laboratory Results - last 24 hr 02/07/24 11:17: POC Glucose 151 H 02/07/24 21:05: POC Glucose 197 H 02/08/24 06:09: POC Glucose 135 H 02/08/24 06:26: Sodium 138, Potassium 2.9 L, Chloride 101, Carbon Dioxide 28.0, Anion Gap 9, BUN 11, Creatinine 0.75, Estim Creat Clear Calc 64.88, Est GFR (MDRD) Af Amer 133, Est GFR (MDRD) Non-Af 110, BUN/Creatinine Ratio 14.6, G lucose 134 H, Calcium 8.0 L, Phosphorus 2.9, Magnesium 0.9 L* Micro: Microbiology 01/31/24 16:35 Blood Culture (Wb) - Right Hand Blood Culture - Final No growth in 5 days. 02/03/24 08:50 Blood Culture (Wb) - Right Hand Blood Culture - Preliminary No growth in 48 hours. 02/03/24 08:40 Blood Culture (Wb) - Anticubital Right Blood Culture - Preliminary No growth in 48 hours. 02/03/24 09:40 Urine Catheter - Catheter Urine Culture - Final Presumptive C albicans 01/31/24 16:32 Blood Culture (Wb) - Left Forearm Blood Culture - Final Escherichia coli 01/31/24 16:32 Urine, Catheterized Urine Culture - Final Escherichia coli Physical Exam Narrative General: Alert, Oriented x3, Cooperative, No apparent distress HEENT: Atraumatic, PERRLA, EOMI, Normocephalic Oral: Moist Mucosa Neck: Supple, No JVD Lungs: Diminished, Normal air movement, No rhonchi, No wheeze, No rales Cardiovascular: Regular rate, Regular Rhythm, Normal S1, Normal S2, No murmurs Abdomen: Soft, Non Tender, Non-Distended, No Hepato-splenomegaly Extremities: No edema, Capillary Refill Less than 3 Seconds Skin: No rashes, No breakdown Musculoskeletal: No Tenderness to Palpation of Joints or Extremities Neurological: No focal neurological deficits, Motor Exam 5/5 strength throughout, Sensory exam intact to light touch and pain Psych/Mental Status: Normal Affect, Appropriate Assessment & Plan Assessment/Plan (1) Acute UTI: (2) Bacteremia: (3) Normocytic anemia: PLAN: Plan #Acute UTI and GNR bacteremia -UA suggestive of UTI is also growing organism and blood cultures preliminarily gram-negative rods -Patient on Zosyn, was initially on Rocephin however given recent hospitalizations and initial concern for gallbladder pathology is changed to Zosyn, presently tolerating this so we will await sensitivities -Patient not having any pain in right upper quadrant and no symptoms consistent with cholecystitis, will monitor and if any further concerns can consider HIDA or surgery consult -Continue IV fluids -02/01: Continue to await culture and sensitivity, continue Zosyn. Patient continues to deny any abdominal pain, will repeat CMP in the a.m. Did have a fever earlier this morning, unclear etiology, fevers resolved, continue to monitor for any other infectious symptoms and continue broad-spectrum antibiotics. If patient spikes another temperature will repeat blood cultures -02/02: Awaiting final cultures patient intermittently with some mildly elevated temps and somewhat lower blood pressure, when BP low this morning patient recultured given bolus of fluids and vancomycin added to regimen, patient did not have any specific complaints at the time of exam however interventions in place and will continue as we monitor cultures, de-escalate as able. LFTs did start to downtrend 02/04/2024: Broad-spectrum antibiotics continued, repeat cultures are pending 02/05/2024: Cultures are still pending however he is showing much improvement can likely de-escalate today or tomorrow 02/06/2024: Cultures are negative will de-escalate back to just Zosyn and discontinue the vancomycin, awaiting pre-CERT 02/07/2024: Awaiting pre-CERT 02/08/2024: Will complete antibiotics today, awaiting pre-CERT # Metabolic encephalopathy secondary to acute UTI and gram-negative moncho bacteremia -Improving with treatment of underlying problem -02/01: Improving with treatment of UTI -02/02: Continues to improve #MADELEINE- resolved -Creatinine 1.31 on presentation on the day before was 0.95 -Improved with IV fluids, will decrease rate -02/01: Continued to improve and BUN within normal limits, will hold fluids #Hx TIA/CAD s/p stents and CABG -On asa and plavix, will continue -Continue statin -02/01: Continue present management # Recent ileostomy and poor p.o. intake -Encourage p.o. -Supportive care -Continue mirtazapine -02/01: Continue to encourage increased p.o. intake -02/02: Patient net negative for this admission, will give additional IV fluid, encourage oral intake #Hypokalemia/hypomagnesemia -Replaced 02/08/2024: Had difficulty keeping his potassium elevated so a magnesium was checked and was critically low at 0.9, will replace today and recheck in the morning, of note phosphorus was normal #Type 2 diabetes mellitus -Glucose checks and sliding scale insulin -Will decrease patient's long-acting insulin due to poor p.o. intake -02/01: Glucose is variable however within a decent range this a.m., continue present glucose control -02/02: Avoid hypoglycemia, continue present management #GERD -Continue PPI -02/01: No abdominal complaints -02/02: No new complaints #Hypertension -On amlodipine and carvedilol -02/01: Patient remains on Coreg, amlodipine was discontinued to avoid hypotension -02/02: Patient did have low BP earlier, decreased Coreg and added specifically parameters #Chronic BPH with obstruction -Continue home medications -02/01: Patient does have Robb in place at this time DVT: Heparin Charges/Coding Visit Charges Inpatient E&M: 95154 Subs Hosp L2
[2024-02-08] MEDS: Magnesium Sulfate 4gm/100mL 4 GM/100 ML IV.SOLN. IV (09:28)
[2024-02-08] MEDS: Potassium Chloride Oral Tablet 20 MEQ 60 MEQ PO (09:28)
[2024-02-08] MEDS: Carvedilol 6.25 MG Tablet PO ×2 (09:29→22:12)
[2024-02-08] MEDS: Aspirin 81 MG TAB.CHEW PO (09:29)
[2024-02-08] MEDS: Heparin Injection (Vial) 5,000 UNIT/ML VIAL 5000 UNIT SC ×2 (09:30→22:12)
[2024-02-08] MEDS: DULoxetine Hcl 30 MG Capsule PO (09:30)
[2024-02-08] MEDS: Insulin Glargine-YFGN 100 UNIT/ML Pen 10 UNIT SC ×2 (09:31→22:44)
[2024-02-08] MEDS: Pantoprazole Sodium 40 MG Tablet PO (09:32)
[2024-02-08] MEDS: Clopidogrel Bisulfate 75 MG Tablet PO (09:32)
[2024-02-08] MEDS: Glucerna Shake 120 ML LIQUID PO ×2 (09:42→13:41)
[2024-02-08] MEDS: Calcium Carbonate 500 MG Tablet 1000 MG PO ×2 (09:42→19:52)
[2024-02-08] MEDS: oxyCODONE 5 MG Tablet 2.5 MG PO ×2 (09:58→22:16)
[2024-02-08] MEDS: Insulin Lispro 100 UNIT/ML INSULN.PEN SC ×3 (11:43→22:43)
--- NOTE | 2024-02-08 11:59 | NURSING ---
Unable to scan med. Jacqueline Waldrop verified administration of oxycodone 2.5mg at 0958.
[2024-02-08 12:03] LABS: Bedside Glucose 226 mg/dL (74-106)
[2024-02-08 16:51] LABS: Bedside Glucose 260 mg/dL (74-106)
[2024-02-08] MEDS: Acetaminophen 325 MG Tablet 650 MG PO (19:51)
[2024-02-08] MEDS: Tamsulosin HCl 0.4 MG Capsule 0.8 MG PO (22:12)
[2024-02-08] MEDS: Atorvastatin Calcium 40 MG Tablet PO (22:12)
[2024-02-08] MEDS: Mirtazapine 15 MG Tablet PO (22:12)
[2024-02-08] MEDS: MELATONIN 3 MG TABLET PO (22:16)
[2024-02-08 23:00] LABS: Bedside Glucose 198 mg/dL (74-106)
[2024-02-09 03:13] VITALS: BP 153/64; PULSE 79; RESP 16; TEMP 36.6; O2SAT 98
[2024-02-09] MEDS: Acetaminophen 325 MG Tablet 650 MG PO (06:01)
[2024-02-09] MEDS: oxyCODONE 5 MG Tablet 2.5 MG PO (06:02)
[2024-02-09 06:41] LABS: Anion Gap 7 (5-15); BUN 10 mg/dL (7-18); BUN/Creat Ratio 12.4 RATIO (10-20); Calcium,Total 8.2 mg/dL (8.5-10.1); Chloride 101 mmol/L (98-107); EST Glomerular Filtration Rate 102 mL/min (>60); Est Glom Filt Rate - Afr Amer 123 mL/min (>60); Estimated Creatinine Clearance 64.88 ml/min; Glucose 195 mg/dL (74-106); Magnesium 1.6 mg/dL (1.6-2.6); Potassium 3.7 mmol/L (3.5-5.1); Sodium Level 136 mmol/L (136-145)
[2024-02-09] MEDS: Insulin Lispro 100 UNIT/ML INSULN.PEN SC ×3 (06:43→16:34)
[2024-02-09] MEDS: Piperacil/Tazobactam 3.375 GM in 0.9% Normal Saline (50mL MB+) 50 ML IV (06:43)
[2024-02-09 06:46] VITALS: PULSE 90; RESP 16; O2SAT 95
[2024-02-09] MEDS: Ipratropium/Albuterol Sulfate 3 ML AMPUL.NEB INHALATION ×2 (06:46→12:56)
[2024-02-09 07:13] LABS: Bedside Glucose 190 mg/dL (74-106)
[2024-02-09 09:15] VITALS: BP 113/71; PULSE 82; RESP 16; TEMP 36.8; O2SAT 98
[2024-02-09] MEDS: Magnesium Sulfate 2 GM in Dextrose 5%-Water (100mL Bag) 100 ML IV (09:39)
[2024-02-09] MEDS: Clopidogrel Bisulfate 75 MG Tablet PO (09:41)
[2024-02-09] MEDS: DULoxetine Hcl 30 MG Capsule PO (09:41)
[2024-02-09] MEDS: Aspirin 81 MG TAB.CHEW PO (09:56)
[2024-02-09] MEDS: Pantoprazole Sodium 40 MG Tablet PO (09:56)
[2024-02-09] MEDS: Carvedilol 6.25 MG Tablet PO (09:57)
[2024-02-09] MEDS: Glucerna Shake 120 ML LIQUID PO (10:02)
[2024-02-09] MEDS: Insulin Glargine-YFGN 100 UNIT/ML Pen 10 UNIT SC (10:02)
[2024-02-09] MEDS: Heparin Injection (Vial) 5,000 UNIT/ML VIAL 5000 UNIT SC (10:02)
--- NOTE | 2024-02-09 10:39 | CASEMGMT ---
Discharge Planning Updates sent to [facility] via [facility]. Patsy Riley DC Planning Asst.
--- NOTE | 2024-02-09 10:59 | CASEMGMT ---
Social Work Precert is still pending for return to [facility] [place]. SW met with pt and updated on insurance issues. Pt is frustrated that he is unable to leave hospital. SW spoke with pt at length regarding struggle with chronic illness, frustration with current need for total care and difficulty with recent hospitalizations and rehab placements. Emotional support provided and SW and pt spoke about positive ways to cope with difficulties. Pt appreciative of visit and support. Pt asking to go home from hospital, but after discussion pt is able to understand need to return to [facility] [place]. entered room and updated that insurance approval is still pending. DC marketing assistant has been in contact with [facility] to check on insurance precert. Plan: [facility], pending precert. SHAUN Dejesus
[2024-02-09 12:11] LABS: Bedside Glucose 248 mg/dL (74-106)
[2024-02-09 12:55] VITALS: PULSE 74; RESP 16
--- NOTE | 2024-02-09 15:19 | CHAPLAIN ---
Type of Pastoral Visit ___ Initial Visit _x__ Follow-up Visit ___ On-call Visit ___ General Patient Visit ___ Spiritual Assessment ___ Family Conference ___ Bereavement ___ Rapid Response ___ Code Blue ___ Other (describe below) Pastoral Care Referral From _x__ Patient ___ Family ___ Nurse ___ Physician ___ [place] Mechanic ___ Sap Bi Architect ___ Other (describe below) Sacrament/Intervention _x__ Active listening ___ Anointing ___ Buddhism ___ Bereavement ___ Communion ___ Angelika exploration ___ _x__ Life review _x__ Prayer ___ Reconciliation ___ Sacrament of Sick _x__ Supportive presence ___ Wedding ___ Other (describe below) Pastoral Comments patient is more alert today and clear in his speech and conversations with appropriate thoughts; pt acknowledges his disappointment and frustration over not being released from hospital yet due to decisions waiting to be determined; pt speaks of a family gathering tomorrow for the holiday and that he was planning to be there; pt admits that he is not coping very well; however pt begins to talk about favorite summer traditions of his family gatherings and this brings a smile often to his face as he remembers them; pt had many good family experiences in his early years and this brings pleasant conversation and memories; pt is encouraged to focus on the possible better things to happen and to remember the good days and his angelika and family; pt asks for prayer
--- NOTE | 2024-02-09 16:08 | CASEMGMT ---
Social Work Precert has been obtained for pt to discharge to [place] today. Physician updated and pt is ready for discharge. Transportation arranged with [facility] for 5pm flower buncher or picker via cot. Discharge orders faxed to [facility] and called and notified [facility] floor nurse of time of discharge. Pt notified and agreeable to discharge. Phone call to pt's and she is agreeable to dc plan. Nursing updated. Disposition: Return to [facility] under skilled level of care SHAUN Dejesus
--- NOTE | 2024-02-09 16:11 | TREXTCAR_ITS ---
Diet Diet Order/Speech Therapy: 02/01/24 15:37 Diet: Regular - General Food consistency:: Regular Liquid Consistency:: Regular/Thin Is pt able to select menu?: Yes Routine Orders/Code Status Routine Lab Work: CBC and BMP Code Status: Full Code Wound(s) coccyx: Wound Type: Pressure Injury Dressing Change: Mepilex Therapies Physical Therapy: Eval and Treat Occupational Therapy: Eval and Treat Problem/Diagnosis (1) Acute UTI: Status: Acute Code(s): N39.0 - Urinary tract infection, site not specified (2) Bacteremia: Status: Acute Code(s): R78.81 - Bacteremia (3) Normocytic anemia: Status: Acute Code(s): D64.9 - Anemia, unspecified Plan #Acute UTI and GNR bacteremia -UA suggestive of UTI is also growing organism and blood cultures preliminarily gram-negative rods -Patient on Zosyn, was initially on Rocephin however given recent hospitalizations and initial concern for gallbladder pathology is changed to Zosyn, presently tolerating this so we will await sensitivities -Patient not having any pain in right upper quadrant and no symptoms consistent with cholecystitis, will monitor and if any further concerns can consider HIDA or surgery consult -Continue IV fluids -02/01: Continue to await culture and sensitivity, continue Zosyn. Patient continues to deny any abdominal pain, will repeat CMP in the a.m. Did have a fe saurabh earlier this morning, unclear etiology, fevers resolved, continue to monitor for any other infectious symptoms and continue broad-spectrum antibiotics. If patient spikes another temperature will repeat blood cultures -02/02: Awaiting final cultures patient intermittently with some mildly elevated temps and somewhat lower blood pressure, when BP low this morning patient recultured given bolus of fluids and vancomycin added to regimen, patient did not have any specific complaints at the time of exam however interventions in place and will continue as we monitor cultures, de-escalate as able. LFTs did start to downtrend 02/04/2024: Broad-spectrum antibiotics continued, repeat cultures are pending 02/05/2024: Cultures are still pending however he is showing much improvement can likely de-escalate today or tomorrow 02/06/2024: Cultures are negative will de-escalate back to just Zosyn and discontinue the vancomycin, awaiting pre-CERT 02/07/2024: Awaiting pre-CERT 02/08/2024: Will complete antibiotics today, awaiting pre-CERT # Metabolic encephalopathy secondary to acute UTI and gram-negative moncho bacteremia -Improving with treatment of underlying problem -02/01: Improving with treatment of UTI -02/02: Continues to improve #MADELEINE- resolved -Creatinine 1.31 on presentation on the day before was 0.95 -Improved with IV fluids, will decrease rate -02/01: Continued to improve and BUN within normal limits, will hold fluids #Hx TIA/CAD s/p stents and CABG -On asa and plavix, will continue -Continue statin -02/01: Continue present management # Recent ileostomy and poor p.o. intake -Encourage p.o. -Supportive care -Continue mirtazapine -02/01: Continue to encourage increased p.o. intake -02/02: Patient net negative for this admission, will give additional IV fluid, encourage oral intake #Hypokalemia/hypomagnesemia -Replaced 02/08/2024: Had difficulty keeping his potassium elevated so a magnesium was checked and was critically low at 0.9, will replace today and recheck in the morning, of note phosphorus was normal #Type 2 diabetes mellitus -Glucose checks and sliding scale insulin -Will decrease patient's long-acting insulin due to poor p.o. intake -02/01: Glucose is variable however within a decent range this a.m., continue present glucose control -02/02: Avoid hypoglycemia, continue present management #GERD -Continue PPI -02/01: No abdominal complaints -02/02: No new complaints #Hypertension -On amlodipine and carvedilol -02/01: Patient remains on Coreg, amlodipine was discontinued to avoid hypotension -02/02: Patient did have low BP earlier, decreased Coreg and added specifically parameters #Chronic BPH with obstruction -Continue home medications -02/01: Patient does have Robb in place at this time DVT: Heparin Allergies/Procedures Done in Hospital Allergies No Known Allergies Allergy (Verified 11/29/23 11:30) Procedures: None Type of Care/Length of Stay Estimated LOS: Convalescent Care Less Than 30 days Type of Care Needed: Skilled Rehab Potential: Good Prognosis: Good Additional Orders/Day of Discharge Day of Discharge: 02/09/24 Dietary and Speech Recommendations Dietitian Recommendations/Changes: Continue Regular diet Continue 120 mL Glucerna 4x/d (440 kcal, 20 g protein total) since patient likes it Order fresh aquino milkshake tonight for dinner May need to consider alternate route for nutrition since meal intake has been <50% x >5 days. Discharge Plan Admission Admit Date/Time: 01/31/24 18:51 Attending Provider: Oliver Rodriguez Primary Care Provider: Kendy Modi Consulting Providers: Miguel Angel Montez; Nicole Smith Discharge Orders/Prescriptions Prescriptions: New carvedilol 6.25 mg Tablet 6.25 mg PO BID Qty: 0 0RF mirtazapine 15 mg Tablet 15 mg PO QHS Qty: 0 0RF Continued aspirin 81 MG tablet,chewable 81 mg PO DAILY insulin lispro [Humalog KwikPen Insulin] 100 unit/mL insulin pen 1 sliding scale dose SC TIDCM Protocol: 6. Sliding Scale Insulin Custom Condition: mg/dl range Dose/Route: Number of Units Condition: 0-200 Dose/Route: 0 Condition: 201-250 Dose/Route: 2 Condition: 251-300 Dose/Route: 4 Condition: 301-350 Dose/Route: 6 Condition: 351-400 Dose/Route: 8 Condition: 401-450 Dose/Route: 10 Condition: 451-500 Dose/Route: 12 Condition: 500+ Dose/Route: 14 Condition: 501+ Dose/Route: CALL MD Protocol Text: INJECT 4 UNITS SUBCUTANEOUSLY ALONG WITH SLIDING SCALE THREE TIMES A DAY AT 0730, 1130, AND 1630 duloxetine 60 MG capsule,delayed release(DR/EC) 30 mg PO DAILY Qty: 30 1RF amlodipine 10 mg tablet 10 mg PO DAILY ipratropium-albuterol 0.5 mg-3 mg(2.5 mg base)/3 mL solution for nebulization 3 ml inhalation Q6H PRN (Reason: shortness of breath or wheezing) melatonin 3 mg tablet 3 mg PO QHS simethicone 125 mg tablet,chewable 125 mg PO 4X/DAY PRN (Reason: abdominal distention) tamsulosin [Flomax] 0.4 mg capsule 0.8 mg PO QHS insulin glargine 100 unit/mL (3 mL) insulin pen 36 unit subcut DAILY Tums 300 mg (750 mg) tablet,chewable 300 mg PO TID PRN (Reason: dyspepsia) Biofreeze (menthol) 4 % gel 1 applic topical BID PRN (Reason: pain) [place] Saline 0.65 % aerosol,spray 2 spray intranasal Q4H PRN (Reason: dry nasal passages) Rx Instructions: while awake clotrimazole 1 % cream 1 applic topical BID Rx Instructions: APPLY TOPICALLY TO HEAD OF PENIS TWICE DAILY FOR 14 DAYS. START- 01/24/24 END- 02/07/24 atorvastatin 40 mg tablet 40 mg PO QHS pantoprazole 40 mg tablet,delayed release (DR/EC) 40 mg PO DAILY acetaminophen 325 mg capsule 650 mg PO Q6H Boost Glucose Control 0.07-0.8 gram-kcal/mL liquid 120 ml PO TID dextrose [Glucose Gel] 40 % gel 10 g PO Q15M PRN (Reason: hypoglycemia) Rx Instructions: until symptoms of low blood sugar are controlled ondansetron 4 mg tablet,disintegrating 4 mg PO Q4H PRN (Reason: nausea) Rx Instructions: give 1st dose 30min before emetogenic chemo sodium chloride 0.9 % Parenteral Solution 100 ea IV .continuous clopidogrel 75 mg tablet 75 mg PO DAILY Qty: 90 3RF Discontinued oxycodone 5 mg tablet 2.5 mg PO Q6H PRN (Reason: pain) carvedilol 25 mg tablet 25 mg PO BID Rx Instructions: must administer with a meal/food nitrofurantoin monohyd/m-cryst [Macrobid] 100 mg capsule 100 mg PO BID Rx Instructions: must administer with a meal/food mirtazapine 7.5 mg tablet 7.5 mg PO QHS Referrals / Follow Up: Kendy Modi MD [Primary Care Provider] - Disposition Disposition (needs filled in before D/C Order can be placed): [facility]
[2024-02-09 16:23] VITALS: BP 157/73; PULSE 75; RESP 18; TEMP 36.8; O2SAT 98
[2024-02-09 16:44] LABS: Bedside Glucose 243 mg/dL (74-106)
--- NOTE | 2024-02-09 17:05 | DS.PCM_ITS ---
Providers Date of Admission: 01/31/24 Primary Care Physician: Dr. 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 03/20/16 insulin lispro 100 unit/mL subcutaneous pen (Humalog KwikPen (U-100) Insulin) 1 sliding scale dose subcut TIDCM diabetes 09/26/21 duloxetine 60 mg capsule,delayed release 30 mg (1/2 x 60 mg) PO DAILY depression #30 caps 03/12/23 clopidogrel 75 mg tablet 75 mg PO DAILY blood thinner #90 tabs 10/10/23 atorvastatin 40 mg tablet 40 mg PO QHS anti lipid 12/01/23 pantoprazole 40 mg tablet,delayed release 40 mg PO DAILY GERD 12/01/23 acetaminophen 325 mg capsule 650 mg PO Q6H pain 12/02/23 dextrose 40 % oral gel (Glucose Gel) 10 g PO Q15M PRN hypoglycemia 12/02/23 nutrition tx glu intol,lac-free,soy-fiber 0.07 gram-0.8 kcal/mL liquid (Boost Glucose Control) 120 ml PO TID diabetes 12/02/23 ondansetron 4 mg disintegrating tablet 4 mg PO Q4H PRN nausea 12/02/23 sodium chloride 0.9 % 100 ea IV .continuous fluid imbalance 12/02/23 amlodipine 10 mg tablet 10 mg PO DAILY BLOOD PRESSURE 01/31/24 calcium carbonate (Tums) 300 mg PO TID PRN dyspepsia 01/31/24 clotrimazole 1 % topical cream 1 applic topical BID 01/31/24 insulin glargine 100 unit/mL (3 mL) subcutaneous pen 36 unit subcut DAILY 01/31/24 ipratropium 0.5 mg-albuterol 3 mg (2.5 mg base)/3 mL nebulization soln 3 ml inhalation Q6H PRN shortness of breath or wheezing 01/31/24 melatonin 3 mg tablet 3 mg PO QHS 01/31/24 menthol 4 % topical gel (Biofreeze (menthol)) 1 applic topical BID PRN pain 01/31/24 simethicone 125 mg chewable tablet 125 mg PO 4X/DAY PRN abdominal distention 01/31/24 sodium chloride 0.65 % nasal spray aerosol ([place] Saline) 2 spray intranasal Q4H PRN dry nasal passages 01/31/24 tamsulosin 0.4 mg capsule (Flomax) 0.8 mg PO QHS 01/31/24 carvedilol 6.25 mg tablet 6.25 mg PO BID #0 tabs 02/09/24 mirtazapine 15 mg tablet 15 mg PO QHS #0 tabs 02/09/24 Hospital Course Operations None Procedures None Summary of Care Provided Minutes Spent on Discharge: 39 Hospital Course: Per HPI: MITCH VEGA, is a 68 M who presents to the emergency room at [facility] from an extended care facility. Patient is undergoing inpatient rehab due to a recent ileostomy, he has not been eating or drinking well at the long-term and he has not been ambulatory for the last 3 weeks. Patient had a past history of colorectal cancer and has a colostomy also which was placed quite sometime ago. He was in the hospital at the [facility] in [place] for a small bowel obstruction/? Ischemic bowel and underwent an ileostomy and small bowel resection-his who was in the room at the time of my examination today gave me the medical history due to the patient's lethargy and somnolence. According the patient's , he was in the hospital at the [facility] for several weeks after the surgery. Chemistry profile showed a low sodium at 125, chloride was 93, creatinine was elevated at 1.31 and BUN was 33. Patient's lactic acid was 2.7, glucose was 321, and the patient's liver enzymes were elevated with an AST of 61, ALT of 71, and an alkaline phosphatase of 754. Patient CBC was remarkable for elevated white blood cell count at 13.3, hemoglobin was 11.1. Patient's urinalysis indicated a urinary tract infection. No imaging studies were done on the gallbladder, liver, or pancreas. Patient had a CT of the abdomen done in November 2023 at this hospital which showed multiple gallstones and possible fatty liver, at that time he had a bowel obstruction and he was transferred to [facility] in [place] for further care at that time. Patient will be admitted to [place] [id number], he was given IV Rocephin in the ER and this will be continued, IV fluids will be administered, I have ordered a limited ultrasound of the abdomen to be done and the patient will go directly up to the floor after this is done. Hospital Course: #Acute UTI and GNR bacteremia -UA suggestive of UTI is also growing organism and blood cultures preliminarily gram-negative rods -Patient on Zosyn, was initially on Rocephin however given recent hospitalizations and initial concern for gallbladder pathology is changed to Zosyn, presently tolerating this so we will await sensitivities -Patient not having any pain in right upper quadrant and no symptoms consistent with cholecystitis, will monitor and if any further concerns can consider HIDA or surgery consult -Continue IV fluids -02/01: Continue to await culture and sensitivity, continue Zosyn. Patient continues to deny any abdominal pain, will repeat CMP in the a.m. Did have a fever earlier this morning, unclear etiology, fevers resolved, continue to monitor for any other infectious symptoms and continue broad-spectrum antibiotics. If patient spikes another temperature will repeat blood cultures -02/02: Awaiting final cultures patient intermittently with some mildly elevated temps and somewhat lower blood pressure, when BP low this morning patient recultured given bolus of fluids and vancomycin added to regimen, patient did not have any specific complaints at the time of exam however interventions in place and will continue as we monitor cultures, de-escalate as able. LFTs did start to downtrend 02/04/2024: Broad-spectrum antibiotics continued, repeat cultures are pending 02/05/2024: Cultures are still pending however he is showing much improvement can likely de-escalate today or tomorrow 02/06/2024: Cultures are negative will de-escalate back to just Zosyn and discontinue the vancomycin, awaiting pre-CERT 02/07/2024: Awaiting pre-CERT 02/08/2024: Will complete antibiotics today, awaiting pre-CERT 02/09/2024: He has completed antibiotics for his E. coli UTI and bacteremia he has received 9 total days worth of treatment and blood cultures were clear on 02/03/2024. He did receive pre-CERT for SNF and I discussed with him the plan for discharge today he expressed understanding the risk benefits of going to the long-term and would like to go today. I discussed with him that I would discontinue his narcotics but she was okay with if he does have increasing pain can always be restarted at the long-term. # Metabolic encephalopathy secondary to acute UTI and gram-negative moncho bacteremia -Improving with treatment of underlying problem -02/01: Improving with treatment of UTI -02/02: Continues to improve #MADELEINE- resolved -Creatinine 1.31 on presentation on the day before was 0.95 -Improved with IV fluids, will decrease rate -02/01: Continued to improve and BUN within normal limits, will hold fluids #Hx TIA/CAD s/p stents and CABG -On asa and plavix, will continue -Continue statin -02/01: Continue present management # Recent ileostomy and poor p.o. intake -Encourage p.o. -Supportive care -Continue mirtazapine -02/01: Continue to encourage increased p.o. intake -02/02: Patient net negative for this admission, will give additional IV fluid, encourage oral intake #Hypokalemia/hypomagnesemia -Replaced 02/08/2024: Had difficulty keeping his potassium elevated so a magnesium was checked and was critically low at 0.9, will replace today and recheck in the morning, of note phosphorus was normal 02/09/2024: Magnesium this morning was 1.2, he was given 2 g IV magnesium #Type 2 diabetes mellitus -Glucose checks and sliding scale insulin -Will decrease patient's long-acting insulin due to poor p.o. intake -02/01: Glucose is variable however within a decent range this a.m., continue present glucose control -02/02: Avoid hypoglycemia, continue present management #GERD -Continue PPI -02/01: No abdominal complaints -02/02: No new complaints #Hypertension -On amlodipine and carvedilol -02/01: Patient remains on Coreg, amlodipine was discontinued to avoid hypotension -02/02: Patient did have low BP earlier, decreased Coreg and added specifically parameters 02/09/2024: He is on Coreg 25 mg p.o. twice daily at home he has been decreased to 6.25 mg p.o. twice daily here in the hospital, will discharge him on the new dose at 6.25 mg twice daily but can always increase back to 25 if necessary at the long-term. #Chronic BPH with obstruction -Continue home medications -02/01: Patient does have Robb in place at this time Physical Exam Narrative General: Alert, Oriented x3, Cooperative, No apparent distress HEENT: Atraumatic, PERRLA, EOMI, Normocephalic Oral: Moist Mucosa Neck: Supple, No JVD Lungs: Diminished, Normal air movement, No rhonchi, No wheeze, No rales Cardiovascular: Regular rate, Regular Rhythm, Normal S1, Normal S2, No murmurs Abdomen: Soft, Non Tender, Non-Distended, No Hepato-splenomegaly, ileostomy intact Extremities: No edema, Capillary Refill Less than 3 Seconds Skin: No rashes, No breakdown Musculoskeletal: No Tenderness to Palpation of Joints or Extremities Neurological: No focal neurological deficits, Motor Exam 5/5 strength throughout, Sensory exam intact to light touch and pain Psych/Mental Status: Normal Affect, Appropriate Medical Records Data Medical Nutrition Assessment Dietitian: Malnutrition Criteria Met Start: 02/01/24 15:36 Freq: Status: Active Protocol: Document 02/06/24 14:25 [place] (Rec: 02/06/24 14:26 [place] [id number]) Nutrition Malnutrition Evidence of Malnutrition Exists Yes Malnutrition (severe): Chronic Evidenced By Suboptimal Energy Intake ( Severe),Weight Loss (Severe), Physical Changes (Severe) Clinical Problem Chronic Disease or Condition Related Malnutrition Etiology related to colorectal cancer Signs/Symptoms weight loss of >20% x 3 months , energy intake <75% x >1 month, multiple areas of severe muscle mass wasting Status Active Problem Recommendation Dietitian Recommendations/Changes Continue Regular diet Continue 120 mL Glucerna 4x/d (440 kcal, 20 g protein total) since patient likes it Order fresh aquino milkshake tonight for dinner May need to consider alternate route for nutrition since meal intake has been <50% x >5 days. Weight / BMI Weight Weight: 111 lb 5.335 oz Body Mass Index (BMI) 17.9 ABG / Lab / Microbiology Data 02/06/24 06:36 02/09/24 05:30 Laboratory: Laboratory Results - last 24 hr 02/08/24 22:42: POC Glucose 198 H 02/09/24 05:30: Sodium 136, Potassium 3.7, Chloride 101, Carbon Dioxide 28.0, Anion Gap 7, BUN 10, Creatinine 0.80, Estim Creat Clear Calc 64.88, Est GFR (MDRD) Af Amer 123, Est GFR (MDRD) Non-Af 102, BUN/Creatinine Ratio 12.4, G lucose 195 H, Calcium 8.2 L, Magnesium 1.6 02/09/24 06:41: POC Glucose 190 H 02/09/24 11:50: POC Glucose 248 H 02/09/24 16:25: POC Glucose 243 H Microbiology: Microbiology 02/03/24 08:50 Blood Culture (Wb) - Right Hand Blood Culture - Final No growth in 5 days. 02/03/24 08:40 Blood Culture (Wb) - Anticubital Right Blood Culture - Final No growth in 5 days. 01/31/24 16:35 Blood Culture (Wb) - Right Hand Blood Culture - Final No growth in 5 days. 02/03/24 09:40 Urine Catheter - Catheter Urine Culture - Final Presumptive C albicans 01/31/24 16:32 Blood Culture (Wb) - Left Forearm Blood Culture - Final Escherichia coli 01/31/24 16:32 Urine, Catheterized Urine Culture - Final Escherichia coli Meaningful Use Info Meaningful Use Meaningful Use Diagnoses (Choose all that apply): None applicable Ischemic Stroke Statin Dosing Therapy Reference: STATIN DOSE THERAPY REFERENCE: * Patients > 75 years receive moderate or high dose statin therapy. * Patients 75 years or YOUNGER should receive HIGH intensity statin dose unless contraindicated. You will be required to document reason for non-treatment if statin daily dose does not meet guidelines. HIGH DOSE STATIN THERAPY DAILY Atorvastatin > than or = to 40 mg Rosuvastatin > than or = to 20 mg Amlodipine + Atorvastatin > than or = to 2.5/40 mg Ezetimibe + Simvastatin 10/80 mg Simvastatin 80mg Discharge Plan Admission Admit Date/Time: 01/31/24 18:51 Attending Provider: Oliver Rodriguez Primary Care Provider: Kendy Modi Consulting Providers: Miguel Angel Montez; Nicole Smith Discharge Orders/Prescriptions Prescriptions: New carvedilol 6.25 mg Tablet 6.25 mg PO BID Qty: 0 0RF mirtazapine 15 mg Tablet 15 mg PO QHS Qty: 0 0RF Continued aspirin 81 MG tablet,chewable 81 mg PO DAILY insulin lispro [Humalog KwikPen Insulin] 100 unit/mL insulin pen 1 sliding scale dose SC TIDCM Protocol: 6. Sliding Scale Insulin Custom Condition: mg/dl range Dose/Route: Number of Units Condition: 0-200 Dose/Route: 0 Condition: 201-250 Dose/Route: 2 Condition: 251-300 Dose/Route: 4 Condition: 301-350 Dose/Route: 6 Condition: 351-400 Dose/Route: 8 Condition: 401-450 Dose/Route: 10 Condition: 451-500 Dose/Route: 12 Condition: 500+ Dose/Route: 14 Condition: 501+ Dose/Route: CALL MD Protocol Text: INJECT 4 UNITS SUBCUTANEOUSLY ALONG WITH SLIDING SCALE THREE TIMES A DAY AT 0730, 1130, AND 1630 duloxetine 60 MG capsule,delayed release(DR/EC) 30 mg PO DAILY Qty: 30 1RF amlodipine 10 mg tablet 10 mg PO DAILY ipratropium-albuterol 0.5 mg-3 mg(2.5 mg base)/3 mL solution for nebulization 3 ml inhalation Q6H PRN (Reason: shortness of breath or wheezing) melatonin 3 mg tablet 3 mg PO QHS simethicone 125 mg tablet,chewable 125 mg PO 4X/DAY PRN (Reason: abdominal distention) tamsulosin [Flomax] 0.4 mg capsule 0.8 mg PO QHS insulin glargine 100 unit/mL (3 mL) insulin pen 36 unit subcut DAILY Tums 300 mg (750 mg) tablet,chewable 300 mg PO TID PRN (Reason: dyspepsia) Biofreeze (menthol) 4 % gel 1 applic topical BID PRN (Reason: pain) [place] Saline 0.65 % aerosol,spray 2 spray intranasal Q4H PRN (Reason: dry nasal passages) Rx Instructions: while awake clotrimazole 1 % cream 1 applic topical BID Rx Instructions: APPLY TOPICALLY TO HEAD OF PENIS TWICE DAILY FOR 14 DAYS. START- 01/24/24 END- 02/07/24 atorvastatin 40 mg tablet 40 mg PO QHS pantoprazole 40 mg tablet,delayed release (DR/EC) 40 mg PO DAILY acetaminophen 325 mg capsule 650 mg PO Q6H Boost Glucose Control 0.07-0.8 gram-kcal/mL liquid 120 ml PO TID dextrose [Glucose Gel] 40 % gel 10 g PO Q15M PRN (Reason: hypoglycemia) Rx Instructions: until symptoms of low blood sugar are controlled ondansetron 4 mg tablet,disintegrating 4 mg PO Q4H PRN (Reason: nausea) Rx Instructions: give 1st dose 30min before emetogenic chemo sodium chloride 0.9 % Parenteral Solution 100 ea IV .continuous clopidogrel 75 mg tablet 75 mg PO DAILY Qty: 90 3RF Discontinued oxycodone 5 mg tablet 2.5 mg PO Q6H PRN (Reason: pain) carvedilol 25 mg tablet 25 mg PO BID Rx Instructions: must administer with a meal/food nitrofurantoin monohyd/m-cryst [Macrobid] 100 mg capsule 100 mg PO BID Rx Instructions: must administer with a meal/food mirtazapine 7.5 mg tablet 7.5 mg PO QHS Referrals / Follow Up: Kendy Modi MD [Primary Care Provider] - Disposition Disposition (needs filled in before D/C Order can be placed): [facility] Charges/Coding Visit Charges Inpatient E&M: 28444 Disch Hosp >30min
== END 2024-02-09 17:26 | disposition skilled nursing facility (03) | DRG 689 ==
LOC: ED 18:57 → MS3 19:07
PROVIDERS: Internal Medicine; Admitting Provider Internal Medicine; Emergency Provider Emergency Medicine; PCP Family Medicine; Visit Provider Family Medicine
DX: N30.00 Acute cystitis without hematuria (principal); G93.41 Metabolic encephalopathy; E43 Unspecified severe protein-calorie malnutrition; R78.81 Bacteremia; E87.1 Hypo-osmolality and hyponatremia; N17.9 Acute kidney failure, unspecified; E87.20 Acidosis, unspecified; Z68.1 Body mass index [BMI] 19.9 or less, adult; E11.40 Type 2 diabetes mellitus with diabetic neuropathy, unspecified; B96.20 Unspecified Escherichia coli [E. coli] as the cause of diseases classified elsewhere; I95.9 Hypotension, unspecified; Z79.4 Long term (current) use of insulin; E11.51 Type 2 diabetes mellitus with diabetic peripheral angiopathy without gangrene; Z93.2 Ileostomy status; I10 Essential (primary) hypertension; E86.0 Dehydration; E78.00 Pure hypercholesterolemia, unspecified; E87.6 Hypokalemia; K21.9 Gastro-esophageal reflux disease without esophagitis; E83.42 Hypomagnesemia; M25.511 Pain in right shoulder; N40.1 Benign prostatic hyperplasia with lower urinary tract symptoms; N13.8 Other obstructive and reflux uropathy; G89.29 Other chronic pain; R53.81 Other malaise; Z79.82 Long term (current) use of aspirin; Z79.02 Long term (current) use of 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/antiplatelets; Z79.899 Other long term (current) drug therapy; Z85.038 Personal history of other malignant neoplasm of large intestine; Z95.5 Presence of coronary angioplasty implant and graft; Z95.1 Presence of aortocoronary bypass graft; Z86.73 Personal history of transient ischemic attack (TIA), and cerebral infarction without residual deficits
CPT/HCPCS: 36415; 70450; 71045; 76705; 80048; 80053; 80202; 81001; 82140; 82962; 83605; 83690; 83735; 84100; 84484; 85025; 87040; 87077; 87086; 87088; 87186; 87811; 93005; 94640; 97110; 97162; 97166; 97530; 97535; 97802; 99285; J7030; J7040; J7050; A4216; J2405

== ENCOUNTER → 2024-03-07 | Outpatient (REF) | payer BC, MEDICARE, OTHER, SELFPAY | LOC: OLS.WHL 08:46 | PROVIDERS: PCP Family Medicine; Referring Provider Internal Medicine; Visit Provider Internal Medicine | DX: N39.0 Urinary tract infection, site not specified (principal) ==

== ENCOUNTER → 2024-04-16 | Outpatient (CLI) | payer BC, MEDICARE, OTHER, SELFPAY ==
[2024-04-16 17:31] LABS: Absolute Lymphocyte Count 0.85 X10^3/uL (0.83-4.51); Basophil# 0.04 X10^3/uL; Basophil% 0.6 % (0-1); Eosinophil# 0.22 X10^3/uL; Eosinophils% 3.1 % (0-5); Hematocrit 32.3 % (40-54); Lymphocyte # 0.85 X10^3/ul (0.83-4.51); Mean Corpuscular Hgb 28.6 pg (27.0-32.0); Mean Corpuscular Volume 92.3 fL (80-94); Mean Platelet Vol. 9.8 fl (6.2-12.0); Monocyte# 0.85 X10^3/uL; NRBC Flagged by Analyzer 0.3 % (0-5); Neutrophil # 5.02 X10^3/uL (2.7-7.7); Neutrophil % 70.7 % (47-70); Platelet Count 347 K/mm3 (150-450); RBC Distribution Width CV 17.1 % (11.6-14.6); RBC Distribution Width SD 57.7 fl (35.1-43.9); White Blood Count 7.1 K/mm3 (4.4-11.0)
[2024-04-16 18:33] LABS: AST(SGOT) 67 U/L (15-37); Alanine Aminotransfer ALT/SGPT 89 U/L (16-61); Albumin, Serum 2.6 g/dL (3.2-5.0); Alkaline Phosphatase 202 U/L (45-117); Anion Gap 9 (5-15); BUN 12 mg/dL (7-18); BUN/Creat Ratio 15.1 RATIO (10-20); Bilirubin, Direct 0.13 mg/dL (0.00-0.30); Calcium,Total 9.2 mg/dL (8.5-10.1); Chloride 99 mmol/L (98-107); Cholesterol 164 mg/dL (200); EST Glomerular Filtration Rate 103 mL/min (>60); Est Glom Filt Rate - Afr Amer 125 mL/min (>60); Globulin 4.6 g/dL (2.2-4.2); Glucose 246 mg/dL (74-106); High Density Lipoprotein 43 mg/dL; Potassium 4.1 mmol/L (3.5-5.1); Protein, Total 7.2 g/dL (6.4-8.2); Sodium Level 132 mmol/L (136-145); Triglycerides 209 mg/dL; Very Low Density Lipoprotein 42 mg/dL (5-40)
[2024-04-16 18:44] LABS: Hemoglobin A1c 7.4 % (3.8-5.6)
== END | disposition home or self-care (01) ==
LOC: MFPLAB 15:23
PROVIDERS: PCP Family Medicine; Visit Provider Family Medicine
DX: E11.49 Type 2 diabetes mellitus with other diabetic neurological complication (principal); E11.69 Type 2 diabetes mellitus with other specified complication; I25.10 Atherosclerotic heart disease of native coronary artery without angina pectoris; E78.5 Hyperlipidemia, unspecified
CPT/HCPCS: 36415; 80048; 80061; 80076; 83036; 84443; 85025

== ENCOUNTER → 2024-05-28 | Outpatient (CLI) | payer BC, MEDICARE, OTHER, SELFPAY ==
--- NOTE | 2024-05-28 13:56 | ECHOD_ITS ---
Reason For Study: Dyspnea/SOB Procedure This was a 2D Doppler, Color Flow transthoracic echocardiogram. Exam performed in department. Left Ventricle Normal size and thickness. The left ventricular ejection fraction is 60 %. Normal diastology for age. Right Ventricle Normal right ventricle. Atria The left atrium is moderately enlarged. Normal right atrium. Mitral Valve Moderate focal mitral valve calcification, bileaflet. Mild (1+) mitral valve insufficiency. Tricuspid Valve Mild tricuspid valve insufficiency. Normal pulmonary artery pressure. Aortic Valve Trisinus/trileaflet aortic valve. Moderate diffuse aortic valve calcification. Aortic valve sclerosis without stenosis. Pulmonic Valve The pulmonic valve is not well visualized. Great Vessels Normal sized aortic root. Pericardium/Pleural No pericardial effusion. MMode/2D Measurements & Calculations LVIDd: 4.2 cm IVSd: 0.88 cm LVOT diam: 1.8 cm LVIDs: 3.2 cm LVPWd: 1.0 cm LVOT area: 2.5 cm2 RVDd: 2.6 cm FS: 24.2 % asc Aorta Diam: 3.5 cm LAV(MOD-bp): 30.7 ml LVAd ap4: 25.3 cm2 LAV(MOD-bp) Indexed: 19.8 ml/m2 LVLd ap4: 7.4 cm LAV(MOD-sp2): 25.1 ml EDV(MOD-sp4): 69.8 ml LAV(MOD-sp4): 35.7 ml EDV(sp4-el): 72.9 ml LVAs ap4: 14.5 cm2 LVLs ap4: 6.4 cm ESV(MOD-sp4): 28.2 ml ESV(sp4-el): 27.9 ml EF(MOD-sp4): 59.6 % EF(sp4-el): 61.7 % SV(MOD-sp4): 41.6 ml SV(sp4-el): 45.0 ml LA A4 area: 14.2 cm2 RA A4 area: 7.2 cm2 TAPSE: 1.2 cm Time Measurements MV dec time: 0.19 sec Doppler Measurements & Calculations MV E max paul: 86.4 cm/sec Lat Peak E' Paul: 14.5 cm/sec Med Peak E' Paul: 5.8 cm/sec MV A max paul: 117.7 cm/sec E/E' lat: 6.0 E/E' med: 14.9 MV E/A: 0.73 Ao V2 max: 136.3 cm/sec LV V1 max: 74.7 cm/sec MV dec slope: 443.4 cm/sec2 Ao max P.4 mmHg LV V1 max P.2 mmHg Ao V2 mean: 92.5 cm/sec LV V1 mean P.1 mmHg Ao mean P.9 mmHg LV V1 mean: 49.6 cm/sec Ao V2 VTI: 25.9 cm LV V1 VTI: 15.3 cm AV (velocity ratio): 0.59 JOYCE(I,D): 1.5 cm2 JOYCE(V,D): 1.4 cm2 SV(LVOT): 38.2 ml PA V2 max: 113.0 cm/sec TR max paul: 249.3 cm/sec PA max PG (full): 2.4 mmHg TR max P.9 mmHg ECHO/Echo Complete Interpretation Summary The left ventricular ejection fraction is 60 %. Moderate focal mitral valve calcification, bileaflet. Mild (1+) mitral valve insufficiency. Mild tricuspid valve insufficiency. Moderate diffuse aortic valve calcification. Aortic valve sclerosis without dion nosis. Ordering Physician: Prateek Smith Referring Physician: Kendy Modi Performed By: Mary Ann Gonzalez RVT, RDCS and Student
== END | disposition home or self-care (01) ==
PROVIDERS: PCP Family Medicine; Referring Provider Internal Medicine Cardiovascular Disease; Visit Provider Internal Medicine Cardiovascular Disease
DX: I25.798 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 (principal); I77.9 Disorder of arteries and arterioles, unspecified; R07.9 Chest pain, unspecified; I25.10 Atherosclerotic heart disease of native coronary artery without angina pectoris; I10 Essential (primary) hypertension; G47.33 Obstructive sleep apnea (adult) (pediatric); Z95.5 Presence of coronary angioplasty implant and graft; R06.02 Shortness of breath
CPT/HCPCS: 93306

== ENCOUNTER 2024-08-25 15:49 | Inpatient (IN) | payer BC, MEDICARE, SELFPAY ==
[2024-08-25] VITALS (8 sets, daily range): BP systolic 152–176; BP diastolic 60–84; PULSE 80–88; RESP 13–17; TEMP 36.8–37.2; O2SAT 96–100; BMI 22.4
--- NOTE | 2024-08-25 16:22 | CT_ITS ---
INDICATION: headache EXAMINATION: CT BRAIN - CT Head or Brain W/O Contrast Injection TECHNIQUE: Multiple axial images were obtained of the head without intravenous contrast. A radiation dose optimization technique was used for this scan. IV Contrast dosage and agent: None. RADIATION DOSAGE (If Supplied By Facility): CTDIvol = ( 44.99 ) mGy, DLP = ( 880.47 ) mGycm COMPARISON: 01/31/2024 FINDINGS: HEMISPHERES: 1. The cerebral parenchyma, ventricular system, subarachnoid spaces have normal configuration and density. There is a normal gyral pattern. There is normal snowden/white differentiation. No midline shift.. 2. Diffuse involutional changes, moderate to extensive chronic microvascular deep white matter disease. 3. Areas of remote lacunar infarct are present within the RIGHT lenticular nucleus, internal capsule and caudate. 4. No intraparenchymal mass, hemorrhage, or acute territorial infarct. CEREBELLUM - BRAINSTEM: The cerebellum, brainstem, basilar and suprasellar cisterns have normal configuration with the exception of an area of remote infarct and encephalomalacic area involving the medial aspect of the RIGHT cerebellar hemisphere.. No Chiari malformation. PITUITARY: Infundibulum and pituitary have normal configuration. Midline structures appear normal. CSF SPACES: Appropriate for age. No hydrocephalus. Basal cisterns are patent. VESSELS: 1. Extensive carotid vascular calcifications, scattered vertebral calcifications. 2. No hyperdense vascular signs noted.. ORBITS AND PARANASAL SINUSES: 1. Normal appearance of the bony orbits. Normal appearance of the globes and retrobulbar soft tissues.. 2. Paranasal sinuses are clear. BONY ELEMENTS: Bony elements of the cranial vault, facial skeleton and skull base have normal appearance. SCALP AND SOFT TISSUES: Normal appearance of the soft tissues of the scalp and the visualized face OTHER: None ASPECTS Score for Acute Strokes: 10 CT/Brain/Head without Contrast IMPRESSION: 1. Stable exam. 2. Diffuse involutional change, moderate to extensive chronic microvascular deep white matter disease, and areas of remote infarct including the RIGHT basal ganglia and medial aspect of the RIGHT cerebellar hemisphere. 3. No intracranial mass, hemorrhage or acute territorial infarct. 4. No radiographically significant sinus disease.. Electronically Signed: Flash Bird MD at 17:29 EST ,
--- NOTE | 2024-08-25 16:24 | EX.ED.DYSGE1 ---
HPI History of Present Illness Chief Complaint: Fever Informant: patient and spouse/S.O. Narrative Narrative: 68-year-old male presenting to the emergency room with headache fever weakness. Patient developed headache and a temperature of 99.8. notes that he seems more confused in terms of word finding today than normal. He has a history of colorectal cancer status post colectomy and has colostomy. Postoperatively had difficulty with urinary retention and has a suprapubic catheter. No significant cough vomiting or diarrhea. Patient denies sore throat. [facility] Medical History Ileostomy present Colostomy in place Orthostatic hypotension Essential hypertension Loss of hearing Wears glasses Cancer Depression Insulin dependent diabetes mellitus Walker as ambulation aid Arthritis High cholesterol Restless legs Injury of back Injury of head and neck Syncope Dietary restriction Gastric reflux Non-smoker CPAP (continuous positive airway pressure) dependence Shortness of breath on exertion Leg cramps History of pain when walking History of echocardiogram History of stress test Cardiology follow-up encounter History of heart attack Colorectal cancer Dysphagia invasive rectal adenocarcinoma Diabetic neuropathy Restrictive lung disease Type 2 diabetes mellitus Anxiety disorder GERD (gastroesophageal reflux disease) Carotid artery disease Obstructive sleep apnea 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 Peripheral vascular occlusive disease CVA (cerebral vascular accident) ALEJANDRO (obstructive sleep apnea) Dyslipidemia HTN (hypertension) Home Medications ?Medication ?Instructions ?Recorded ?Last Taken ?Type aspirin 81 mg chewable tablet 81 mg PO DAILY heart health 03/20/16 03/10/23 History insulin lispro 100 unit/mL 1 sliding scale dose subcut TIDCM 09/26/21 03/10/23 History subcutaneous pen (Humalog KwikPen diabetes (U-100) Insulin) duloxetine 60 mg capsule,delayed 30 mg (1/2 x 60 mg) PO DAILY 03/12/23 03/10/23 Rx release depression #30 caps clopidogrel 75 mg tablet 75 mg PO DAILY blood thinner #90 10/10/23 Unknown Rx tabs pantoprazole 40 mg tablet,delayed 40 mg PO DAILY GERD 12/01/23 Unknown History release sodium chloride 0.9 % 100 ea IV .continuous fluid 12/02/23 Unknown History imbalance amlodipine 10 mg tablet 10 mg PO DAILY BLOOD PRESSURE 01/31/24 Unknown History calcium carbonate (Tums) 300 mg PO TID PRN dyspepsia 01/31/24 Unknown History clotrimazole 1 % topical cream 1 applic topical BID 01/31/24 Unknown History melatonin 3 mg tablet 3 mg PO QHS 01/31/24 Unknown History menthol 4 % topical gel (Biofreeze 1 applic topical BID PRN pain 01/31/24 Unknown History (menthol)) simethicone 125 mg chewable tablet 125 mg PO 4X/DAY PRN abdominal 01/31/24 Unknown History distention sodium chloride 0.65 % nasal spray 2 spray intranasal Q4H PRN dry 01/31/24 Unknown History aerosol ([place] Saline) nasal passages tamsulosin 0.4 mg capsule (Flomax) 0.8 mg PO QHS 01/31/24 Unknown History carvedilol 6.25 mg tablet 6.25 mg PO BID #0 tabs 02/09/24 Unknown Rx mirtazapine 15 mg tablet 15 mg PO QHS #0 tabs 02/09/24 Unknown Rx acetaminophen 325 mg capsule 650 mg PO Q6H PRN pain 05/21/24 Unknown History atorvastatin 20 mg tablet 20 mg PO QDAY 05/21/24 Unknown History insulin glargine-yfgn 100 unit/mL 50 unit subcut BID 05/21/24 Unknown History (3 mL) subcutaneous pen (Semglee (insulin glargine-yfgn) Pen) amoxicillin 500 mg capsule 500 mg PO TID 08/25/24 Unknown History diphenoxylate-atropine 2.5 1 tab PO 4X/DAY PRN PRN diarrhea 08/25/24 Unknown History mg-0.025 mg tablet gabapentin 300 mg capsule 300 mg PO DAILY 08/25/24 Unknown History metformin 500 mg tablet,extended 500 mg PO BID 08/25/24 Unknown History release 24 hr potassium chloride 20 mEq 20 meq PO DAILY 08/25/24 Unknown History tablet,extended release(part/cryst) (Klor-Con M) Allergy/AdvReac Type Severity Reaction Status Date / Time No Known Allergies Allergy Verified 08/25/24 15:50 Family History Father CAD (coronary artery disease) Hypertension Cancer leukemia Diabetes Heart disease High cholesterol Mother CVA (cerebral vascular accident) Diabetes Breast cancer Brother Diabetes Surgical History History of bilateral cataract extraction History of left heart catheterization (LHC) (~01/22/15) History of right and left heart catheterization (LHC) (~12/25/14) History of eye surgery PTCA Left Anterior Tibial and Paroneal Artery History of coronary artery stent placement (01/02/15) H/O coronary artery bypass surgery (05/30/08) History of right-sided carotid endarterectomy Excision Max.Zygoma Face Tumor History of tonsillectomy History of herniorrhaphy Social History Smoking Status: Never smoker alcohol intake: never substance use type: does not use caffeine: Yes what type of physical activity do you participate in: none ROS ROS ED ROS Narrative Fatigue Constitutional Constitutional ED: Reports fever(s); Denies chills or weight loss Eyes Eyes: Denies change in vision or diplopia ENT ENT ED: Denies ear pain, rhinorrhea or sore throat Cardiovascular Cardiovascular: Denies chest pain, orthopnea, palpitations or racing heartbeat Respiratory/Chest Respiratory/Chest: Denies cough, dyspnea or orthopnea Gastrointestinal Gastrointestinal: Denies abdominal pain, diarrhea, nausea or vomiting Genitourinary Genitourinary ED: Denies dysuria, hematuria or urinary frequency Musculoskeletal Musculoskeletal: Denies arthralgias or myalgias Integumentary Denies abscess or rash Neurologic Neurologic: Reports headache(s) and other Details: Confusion ; Denies weakness Psychiatric Psychiatric: Denies anxiety, depression, suicidal ideation or suicidal thoughts Endocrine Endocrinology: Denies polydipsia, polyphagia or polyuria Allergic/Immunologic Allergic/Immunologic ED: Denies mouth swelling, tongue swelling or urticaria EXAM Physical Exam Const Vital Signs: 08/25/24 15:51 08/25/24 15:52 08/25/24 16:28 Temperature 98.3 F 98.2 F Temperature Source Oral Temporal Pulse Rate 82 82 Respiratory Rate 16 16 Respiratory Effort Normal Respiratory Pattern Normal Blood Pressure 171/80 H 171/80 H Blood Pressure Mean 110 110 Pulse Ox 99 99 Oxygen Delivery Method Room Air Room Air 08/25/24 16:55 08/25/24 18:00 08/25/24 19:00 Temperature 98.4 F 98.3 F 98.4 F Temperature Source Oral Oral Oral Pulse Rate 80 82 87 Respiratory Rate 15 17 13 Respiratory Effort Respiratory Pattern Blood Pressure 174/84 H 152/60 H 176/80 H Blood Pressure Mean 114 90 112 Pulse Ox 100 96 99 Oxygen Delivery Method Room Air Room Air Room Air 08/25/24 20:00 08/25/24 20:13 Temperature 98.4 F 98.4 F Temperature Source Oral Pulse Rate 88 88 Respiratory Rate 16 16 Respiratory Effort Respiratory Pattern Blood Pressure 176/81 H 176/81 H Blood Pressure Mean 112 112 Pulse Ox 96 97 Oxygen Delivery Method Room Air Positive well nourished and well developed General Appearance ED: well developed HEENT Reports normocephalic, head/scalp atraumatic and moist mucous membranes Eyes PERRL and EOMs intact bilaterally Eyes Narrative: No photophobia Neck no lymphadenopathy, supple and no JVD Neck Narrative: No meningeal signs Resp normal respiratory effort and clear to auscultation bilaterally Cardio regular rate, regular rhythm and no murmurs GI normal to inspection, nondistended, normoactive bowel sounds and non-tender GI Narrative: Colostomy present. Suprapubic catheter present. sites are clean dry and intact. Urine in the bag is cloudy dark yellow with heavy sediment. Palpation: soft Back/Spine no CVA tenderness and normal ROM Extremity normal to inspection General Extremety ED: Negative for edema General Extremity: Negative for edema Neuro oriented x3 and CN's II-XII intact bilaterally Sensorium / Orientation: alert Motor Exam: strength 5/5 throughout Psych mental status grossly normal Mood & Affect: Negative for depressed or tearful Skin no rashes or lesions noted and no wounds MDM MDM MDM Narrative Medical decision making narrative: Differential diagnosis includes UTI viral syndrome pneumonia brain hemorrhage stroke dehydration electrolyte abnormality metabolic syndrome Patient's white count 6.5 hemoglobin 12.6 platelet count is 252. INR is 1 PTT 47.7 creatinine is 1 BUN is 17 glucose 116 lactic acid 3.1 urinalysis 25-50 white cells 5-10 red blood cells 2+ bacteria sent for culture blood culture sent. He received IV fluids as well as Rocephin. Patient has typically grown out E. coli though he did have 1 urine culture that also showed Acinetobacter, VRE, with E. coli. My independent rotation of the chest x-ray is no acute process. CT of the brain showed no acute findings. Given the patient's history of a fever with change in mental status and a UTI I think it is reasonable to bring him into the hospital. I will speak with the hospitalist. History & Record Review Discussion w/independent historian: Patient and Family Additional record(s) reviewed:: Prior labs Lab Data Attestation: I reviewed the patient's lab results. Labs: Laboratory Results - last 24 hr 08/25/24 08/25/24 08/25/24 16:18 16:47 19:28 WBC 6.5 RBC 4.30 L Hgb 12.6 L Hct 37.6 L MCV 87.4 MCH 29.3 MCHC 33.5 RDW Std Deviation 44.4 H RDW Coeff of Maia 14.0 Plt Count 252 MPV 9.3 Immature Gran % (Auto) 0.200 Neut % (Auto) 77.6 H Lymph % (Auto) 11.3 L [place] % (Auto) 9.0 Eos % (Auto) 1.4 Baso % (Auto) 0.5 Absolute Neuts (auto) 5.1 Absolute Lymphs (auto) 0.74 L Nucleated RBC % 0 PT 13.3 INR 1.0 APTT 47.7 H Sodium 139 Potassium 4.2 Chloride 103 Carbon Dioxide 29.0 Anion Gap 7 BUN 17 Creatinine 1.00 Est GFR (MDRD) Af Amer 96 Est GFR (MDRD) Non-Af 79 BUN/Creatinine Ratio 17.0 Glucose 116 H Lactic Acid 3.1 H* 2.5 H* Calcium 9.3 Total Bilirubin 0.40 AST 23 ALT 23 Alkaline Phosphatase 117 Total Protein 8.0 Albumin 3.3 Globulin 4.7 H Albumin/Globulin Ratio 0.7 L Urine Color Yellow Urine Clarity Sl. Cloudy Urine pH 6.0 Ur Specific [place] 1.025 Urine Protein 500 H Urine Glucose (UA) Normal Urine Ketones Negative Urine Occult Blood 25 H Urine Nitrite Negative Urine Bilirubin Negative Urine Urobilinogen 1 H Ur Leukocyte Esterase 500 H Urine RBC 5-10 SEEN Urine WBC 25-50 SEEN Ur Squamous Epith Cells 0 SEEN Urine Bacteria 2+ Hyaline Casts 0-5 SEEN Urine Mucus 0 SEEN Urine Yeast 2+ Radiography Diagnostic Testing: Clinical Impression(s) from Imaging Studies Brain CT 08/25/24 16:22 IMPRESSION: 1. Stable exam. 2. Diffuse involutional change, moderate to extensive chronic microvascular deep white matter disease, and areas of remote infarct including the RIGHT basal ganglia and medial aspect of the RIGHT cerebellar hemisphere. 3. No intracranial mass, hemorrhage or acute territorial infarct. 4. No radiographically significant sinus disease.. Electronically Signed: Flash Bird MD at 17:29 EST , Chest X-Ray 08/25/24 17:00 IMPRESSION: 1. Postop changes of prior median sternotomy. 2. No evidence of congestive failure. 3. Atelectasis at the LEFT lung base and blunting LEFT CP angle. Remaining lung zones clear. 4. Unchanged deformity of the proximal LEFT humerus. Electronically Signed: Flash Bird MD at 17:31 EST , Abdomen/Pelvis CT 08/25/24 18:40 IMPRESSION: 1. Bilateral mid abdominal ostomies. No evidence of bowel obstruction. 2. Significant presacral soft tissue thickening without definitive mass or abnormal fluid collection. 3. Suprapubic catheter projects in normal position. 4. No evidence of obstructive uropathy however extensive renal vascular calcifications present. 5. 2 small calcifications appear to be projecting within the gallbladder neck versus cystic duct without alejandro obstruction. No ductal dilatation. Electronically Signed: Flash Bird MD at 20:08 EST , Management Discussion w/another healthcare provider: Hospitalist (Dr. Ford) Discharge Plan Dx/Rx/DC Orders Clinical Impression: Acute febrile illness, Elevated lactic acid level, Complicated urinary tract infection Disposition Disposition: [facility]
[2024-08-25 16:34] LABS: Absolute Lymphocyte Count 0.74 X10^3/uL (0.83-4.51); Absolute Neutrophil Count 5.1 X10^3/uL (2.0-7.7); Basophil# 0.03 X10^3/uL; Basophil% 0.5 % (0-1); Eosinophil# 0.09 X10^3/uL; Eosinophils% 1.4 % (0-5); Hematocrit 37.6 % (40-54); Hemoglobin 12.6 g/dL (13.0-16.5); Lymphocyte # 0.74 X10^3/ul (0.83-4.51); Lymphocyte % 11.3 % (19-41); Mean Corp Hgb Conc 33.5 g/dL (32-36); Mean Corpuscular Hgb 29.3 pg (27.0-32.0); Mean Corpuscular Volume 87.4 fL (80-94); Mean Platelet Vol. 9.3 fl (6.2-12.0); Monocyte# 0.59 X10^3/uL; NRBC Flagged by Analyzer 0 % (0-5); Neutrophil # 5.06 X10^3/uL (2.7-7.7); Neutrophil % 77.6 % (47-70); Platelet Count 252 K/mm3 (150-450); RBC Distribution Width SD 44.4 fl (35.1-43.9); White Blood Count 6.5 K/mm3 (4.4-11.0)
[2024-08-25 16:43] LABS: Partial Thromboplast Time 47.7 Seconds (24.1-36.2); Prothrombin Time (Protime)PT. 13.3 SECONDS (11.7-14.9)
[2024-08-25] MEDS: 0.9% Normal Saline (1000mL) 1,000 ML 250 ML IV (16:53)
[2024-08-25 16:57] LABS: Mucous, Urine 0 SEEN /hpf (<or=2+); Squamous Epithelial Cells - UA 0 SEEN /hpf (0-5)
[2024-08-25 17:00] LABS: ALB/GLOB Ratio 0.7 RATIO (0.9-2.4); AST(SGOT) 23 U/L (15-37); Alanine Aminotransfer ALT/SGPT 23 U/L (16-61); Albumin, Serum 3.3 g/dL (3.2-5.0); Alkaline Phosphatase 117 U/L (45-117); Anion Gap 7 (5-15); BUN 17 mg/dL (7-18); Calcium,Total 9.3 mg/dL (8.5-10.1); Chloride 103 mmol/L (98-107); EST Glomerular Filtration Rate 79 mL/min (>60); Est Glom Filt Rate - Afr Amer 96 mL/min (>60); Globulin 4.7 g/dL (2.2-4.2); Glucose 116 mg/dL (74-106); Potassium 4.2 mmol/L (3.5-5.1); Sodium Level 139 mmol/L (136-145)
--- NOTE | 2024-08-25 17:00 | RAD_ITS ---
INDICATION: fever EXAMINATION/TECHNIQUE: X-RAY - XR Chest 1 View COMPARISON: 01/31/2024 FINDINGS: LIFE-SUPPORT AND LINES: 1. Median sternotomy wires and vascular clips again noted. HEART AND VESSELS: The cardiac silhouette, pulmonary vasculature have normal appearance. No evidence of congestive failure. LUNGS AND PLEURAL SPACES: Minimal blunting LEFT CP angle. Remaining lung zones clear. No pulmonary mass is noted. MEDIASTINUM AND HILAR REGIONS: No masses adenopathy noted. No areas of calcification. Visualized upper airway is normal in position. BONY ELEMENTS: Significant deformity of the proximal LEFT humerus consistent with fracture nonunion. There is significant remodeling, and a underlying pathologic fracture is a consideration. RAD/Chest 1 View (Portable) IMPRESSION: 1. Postop changes of prior median sternotomy. 2. No evidence of congestive failure. 3. Atelectasis at the LEFT lung base and blunting LEFT CP angle. Remaining lung zones clear. 4. Unchanged deformity of the proximal LEFT humerus. Electronically Signed: Flash Bird MD at 17:31 EST ,
[2024-08-25 17:19] LABS: Color, Urine Yellow (Yellow); Glucose, Dipstick Normal (Normal); Ketone-Dipstick Negative (Negative); Leukocyte Esterase-Dipstick 500 /ul (Negative); Nitrite-Dipstick Negative (Negative); Occult Blood-Urine 25 /ul (Negative); Protein-Dipstick 500 mg/dl (Negative); Specific Gravity, Urine 1.025 (1.002-1.030); Urine Bilirubin Dipstick Negative (Negative); Urine Clarity Sl. Cloudy (Clear); Urine Urobilinogen 1 mg/dl (Normal)
--- NOTE | 2024-08-25 17:34 | ED.RN ---
LACTIC 3.1,DR HEALY
[2024-08-25 17:35] LABS: Lactic Acid 3.1 mmol/L (0.4-1.9)
[2024-08-25 17:48] LABS: White Blood Cells 25-50 SEEN /hpf (0-5)
[2024-08-25 17:49] LABS: Bacteria 2+ /hpf (None Seen)
[2024-08-25 17:51] LABS: Red Blood Cells-Urine 5-10 SEEN /hpf (0-5); Yeast-Urine 2+ /hpf (None Seen)
[2024-08-25 17:52] LABS: Hyaline Cast 0-5 SEEN /lpf (0-5)
[2024-08-25] MEDS: Ceftriaxone 1 GM/50 ML BAG IV (18:26)
[2024-08-25] MEDS: 0.9% Normal Saline (1000mL) 1,000 ML 999 ML IV (18:31)
--- NOTE | 2024-08-25 18:40 | CT_ITS ---
INDICATION: Complicated UTI EXAMINATION: CT ABDOMEN AND PELVIS WITHOUT CONTRAST - CT Abdomen And Pelvis W/O Contrast Injection TECHNIQUE: Helically acquired images were obtained of the abdomen and pelvis without oral or IV contrast. A radiation dose optimization technique was used for this scan. IV Contrast dosage and agent: None. Oral contrast: None. RADIATION DOSAGE (If Supplied By Facility): CTDIvol = ( 6.50 ) mGy, DLP = ( 403.60 ) mGycm COMPARISON: No pertinent previous examinations for comparison.. FINDINGS: LOWER CHEST: 1. Minimal pleural-parenchymal scar at LEFT lung base. No infiltrate or consolidation. 2. No cardiomegaly or pericardial effusion. 3. Moderate to extensive coronary vascular calcifications. LIVER: The liver has normal configuration and density given the limitation of noncontrast exam.. No focal mass. GALLBLADDER AND BILIARY TREE: Gallbladder is intact, there are 2 small calcifications which appear to be located at the gallbladder neck versus cystic duct (series 2: Image 49). No ductal dilatation. PANCREAS: No focal cystic or solid mass. SPLEEN: Normal size without focal cystic or solid mass. Splenic granulomata are present ADRENAL GLANDS: No nodules. KIDNEYS AND URETERS: Normal renal size and position. No hydronephrosis. Multiple renal vascular calcifications. No evidence of obstructive uropathy. PERITONEUM: No ascites or free air. No other fluid collection. BOWEL: Large and small bowel loops have normal appearance. There is an ostomy in the RIGHT mid abdomen and an additional ostomy in the LEFT midabdomen. No bowel obstruction. There is a hiatal hernia. The appendix is not visualized. LYMPH NODES: No enlarged mesenteric or retroperitoneal lymph nodes. VESSELS: Extensive diffuse vascular calcifications. No aneurysmal dilatation. URINARY BLADDER: Suprapubic catheter is present. REPRODUCTIVE ORGANS: No pelvic masses. There is however significant presacral soft tissue thickening. No distinct mass however. ABDOMINAL WALL: No discrete abdominal or pelvic wall hernia. BONES: No lytic or blastic abnormality. CT/Abdomen/Pelvis without Cont IMPRESSION: 1. Bilateral mid abdominal ostomies. No evidence of bowel obstruction. 2. Significant presacral soft tissue thickening without definitive mass or abnormal fluid collection. 3. Suprapubic catheter projects in normal position. 4. No evidence of obstructive uropathy however extensive renal vascular calcifications present. 5. 2 small calcifications appear to be projecting within the gallbladder neck versus cystic duct without alejandro obstruction. No ductal dilatation. Electronically Signed: Flash Bird MD at 20:08 EST ,
--- NOTE | 2024-08-25 18:42 | PCM.HP.STD ---
HPI - General General Date of Admission: 08/25/24 Date of Service: 08/25/24 Chief Complaint: Fever HPI Narrative MITCH VEGA, is a 68 M who presented to the emergency department at [facility] on 08/25/2024 with headache, fever, and weakness. Patient developed a headache and then had a temperature of 99.8 at home. His brought him in and reported he seems a bit more confused than baseline. He is oriented x 3 but she states his word finding seem to be more problematic than typical. He has a history of colorectal cancer and has had previous colectomy with colostomy. He had a revision of his colostomy done in November and postoperatively he had issues with urinary retention. He initially had a Robb catheter chronically and they were unable to remove this so so he now has a suprapubic catheter because he was having issues with recurrent urinary tract infections. The suprapubic catheter was placed about 1 month ago. He has had urinary tract infections previously. The last urine culture we have in our system was from 03/19/2024 at which time he had E. coli, Acinetobacter, and VRE. This appears to be an outpatient culture send unclear what antibiotics were used at that time. Vital signs on presentation showed a temperature of 98.3, heart rate 82, respiratory 16, blood pressure is 171/80 with a repeat of 152/60, pulse ox is 99% on room air. CBC showed a chronic stable anemia with a hemoglobin of 12.6. His white count was normal but he did have a left shift of the 77.6% neutrophilia. Coags were relatively unremarkable. Chemistry panel was unremarkable other than mildly elevated glucose at 116. His initial lactate was 3.1 with a repeat lactate of 2.5. Transaminases are within normal limits. UA is consistent with dehydration and infection. The specific gravity of his urine was 1.025, he had occult blood, leuk esterase, 25-50 white cells per high-power field and 2+ bacteria. 2+ yeast were also noted. CT of the abdomen pelvis was performed and showed no acute findings He was given IV fluids and started on IV antibiotics in the emergency department and request for admission was made given this is complex urinary tract infection and his clinical picture on presentation. [facility] Medical History Ileostomy present Colostomy in place Orthostatic hypotension Essential hypertension Loss of hearing Wears glasses Cancer Depression Insulin dependent diabetes mellitus Walker as ambulation aid Arthritis High cholesterol Restless legs Injury of back Injury of head and neck Syncope Dietary restriction Gastric reflux Non-smoker CPAP (continuous positive airway pressure) dependence Shortness of breath on exertion Leg cramps History of pain when walking History of echocardiogram History of stress test Cardiology follow-up encounter History of heart attack Colorectal cancer Dysphagia invasive rectal adenocarcinoma Diabetic neuropathy Restrictive lung disease Type 2 diabetes mellitus Anxiety disorder GERD (gastroesophageal reflux disease) Carotid artery disease Obstructive sleep apnea 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 Peripheral vascular occlusive disease CVA (cerebral vascular accident) ALEJANDRO (obstructive sleep apnea) Dyslipidemia HTN (hypertension) Home Medications ?Medication ?Instructions ?Recorded ?Last Taken ?Type aspirin 81 mg chewable tablet 81 mg PO DAILY heart health 03/20/16 03/10/23 History insulin lispro 100 unit/mL 1 sliding scale dose subcut TIDCM 09/26/21 03/10/23 History subcutaneous pen (Humalog KwikPen diabetes (U-100) Insulin) duloxetine 60 mg capsule,delayed 30 mg (1/2 x 60 mg) PO DAILY 03/12/23 03/10/23 Rx release depression #30 caps clopidogrel 75 mg tablet 75 mg PO DAILY blood thinner #90 10/10/23 Unknown Rx tabs pantoprazole 40 mg tablet,delayed 40 mg PO DAILY GERD 12/01/23 Unknown History release sodium chloride 0.9 % 100 ea IV .continuous fluid 12/02/23 Unknown History imbalance amlodipine 10 mg tablet 10 mg PO DAILY BLOOD PRESSURE 01/31/24 Unknown History calcium carbonate (Tums) 300 mg PO TID PRN dyspepsia 01/31/24 Unknown History clotrimazole 1 % topical cream 1 applic topical BID 01/31/24 Unknown History melatonin 3 mg tablet 3 mg PO QHS 01/31/24 Unknown History menthol 4 % topical gel (Biofreeze 1 applic topical BID PRN pain 01/31/24 Unknown History (menthol)) simethicone 125 mg chewable tablet 125 mg PO 4X/DAY PRN abdominal 01/31/24 Unknown History distention sodium chloride 0.65 % nasal spray 2 spray intranasal Q4H PRN dry 01/31/24 Unknown History aerosol (Boyle Saline) nasal passages tamsulosin 0.4 mg capsule (Flomax) 0.8 mg PO QHS 01/31/24 Unknown History carvedilol 6.25 mg tablet 6.25 mg PO BID #0 tabs 02/09/24 Unknown Rx mirtazapine 15 mg tablet 15 mg PO QHS #0 tabs 02/09/24 Unknown Rx acetaminophen 325 mg capsule 650 mg PO Q6H PRN pain 05/21/24 Unknown History atorvastatin 20 mg tablet 20 mg PO QDAY 05/21/24 Unknown History insulin glargine-yfgn 100 unit/mL 50 unit subcut BID 05/21/24 Unknown History (3 mL) subcutaneous pen (Semglee (insulin glargine-yfgn) Pen) amoxicillin 500 mg capsule 500 mg PO TID 08/25/24 Unknown History diphenoxylate-atropine 2.5 1 tab PO 4X/DAY PRN PRN diarrhea 08/25/24 Unknown History mg-0.025 mg tablet gabapentin 300 mg capsule 300 mg PO DAILY 08/25/24 Unknown History metformin 500 mg tablet,extended 500 mg PO BID 08/25/24 Unknown History release 24 hr potassium chloride 20 mEq 20 meq PO DAILY 08/25/24 Unknown History tablet,extended release(part/cryst) (Klor-Con M) Allergy/AdvReac Type Severity Reaction Status Date / Time No Known Allergies Allergy Verified 08/25/24 15:50 Family History Father CAD (coronary artery disease) Hypertension Cancer leukemia Diabetes Heart disease High cholesterol Mother CVA (cerebral vascular accident) Diabetes Breast cancer Brother Diabetes Surgical History History of bilateral cataract extraction History of left heart catheterization (LHC) (~01/22/15) History of right and left heart catheterization (LHC) (~12/25/14) History of eye surgery PTCA Left Anterior Tibial and Paroneal Artery History of coronary artery stent placement (01/02/15) H/O coronary artery bypass surgery (05/30/08) History of right-sided carotid endarterectomy Excision Max.Zygoma Face Tumor History of tonsillectomy History of herniorrhaphy Social History Smoking Status: Never smoker alcohol intake: never substance use type: does not use caffeine: Yes what type of physical activity do you participate in: none ROS Constitutional Constitutional: Reports fatigue and weakness; Denies anorexia, change in weight, chills, fever(s), malaise, night sweats or other Eyes Eyes: Denies blurry vision, change in eye color, change in vision, discharge from eye(s), double vision, erythema, eye pain, loss of vision or other ENT HEENT: Denies abnormal hearing, dysphagia, ear pain, epistaxis, headache(s), hearing loss, nasal congestion, nasal discharge, post nasal drip, sinus pressure, sore throat or other Cardiovascular Cardiovascular: Denies chest pain, claudication, dyspnea on exertion, edema, lightheadedness, orthopnea, palpitations, paroxysmal nocturnal dyspnea, rapid heart rate, syncope or other Respiratory/Chest Respiratory/Chest: Denies cough, dyspnea, excessive phlegm production, hemoptysis, productive cough, shortness of breath at rest, shortness of breath with exertion, wheezing or other Gastrointestinal Gastrointestinal: Denies abdominal pain, coffee ground emesis, constipation, diarrhea, dyspepsia, hematemesis, hematochezia, loose stools, melena, nausea, vomiting or other Genitourinary Genitourinary: Denies burning urination, difficulty urinating, dysuria, hematuria, nocturia, urinary frequency, urinary hesitancy, urinary incontinence, urinary urgency or other Musculoskeletal Musculoskeletal: Denies arthralgias, back pain, joint pain, joint stiffness, joint swelling, myalgias, neck pain or other Neurologic Neurologic: Reports confusion; Denies abnormal gait, abnormal speech, disequilibrium, dizziness, focal weakness, headache(s), numbness, paresthesias, seizure-like activity, seizures, syncope, tingling, tremor(s) or other Psychiatric Psychiatric: Denies anxiety, depression, homicidal ideation, suicidal ideation or other Endocrine Endocrinology: Denies change in body appearance, cold intolerance, excessive sweating, heat intolerance, polydipsia, polyuria or other Hematologic/Lymphatic Hematologic/Lymphatic: Denies anemia, easy bleeding, easy bruising, lymphadenopathy or other Allergic/Immunologic Allergic/Immunologic: Denies rhinitis, hives, eczemia, asthma or other Vital Signs Vital Signs Vital Signs: 08/25/24 15:51 08/25/24 15:52 08/25/24 16:28 Temperature 98.3 F 98.2 F Temperature Source Oral Temporal Pulse Rate 82 82 Respiratory Rate 16 16 Respiratory Effort Normal Respiratory Pattern Normal Blood Pressure 171/80 H 171/80 H Blood Pressure Mean 110 110 Pulse Ox 99 99 Oxygen Delivery Method Room Air Room Air 08/25/24 16:55 08/25/24 18:00 Temperature 98.4 F 98.3 F Temperature Source Oral Oral Pulse Rate 80 82 Respiratory Rate 15 17 Respiratory Effort Respiratory Pattern Blood Pressure 174/84 H 152/60 H Blood Pressure Mean 114 90 Pulse Ox 100 96 Oxygen Delivery Method Room Air Room Air Physical Exam Const alert, no apparent distress and average body habitus; Negative for healthy appearing Constitutional Narrative: Upper middle-aged, white male, appears older than stated age, oriented to self and place can tell me month but not year, at bedside, patient appears comfortable and nontoxic General Appearance: cooperative HEENT normocephalic, head/scalp atraumatic and moist oral mucous membranes HEENT Narrative: Mild to moderate hearing loss, Mallampati is 2, no thrush Eyes conjunctivae normal Eyes Narrative: No scleral icterus Neck supple Neck Narrative: Trachea midline, no thyroid enlargement Resp normal respiratory effort, no retractions, no use of accessory muscles and clear to auscultation bilaterally Auscultation: Negative for rales, rhonchi or wheezes Cardio regular rate, regular rhythm, S1 normal heart sound, S2 normal heart sound, no murmurs, no gallops and no clicks GI normal to inspection, nondistended, normoactive bowel sounds and soft to palpation GI Narrative: Suprapubic catheter in place with turbid appearing urine Extremity no clubbing, cyanosis or edema Extremity Narrative: 2+ pedal and radial pulses, significantly decreased lean muscle mass Skin No skin turgor normal, no jaundice, no petechiae and no mottling Skin Narrative: Pale, no significant wounds noted, ostomy in place with good urine output and pink stoma Neuro moves all extremities and no focal motor deficits Neuro Narrative: Generalized weakness noted but no focal deficits Sensorium / Orientation: awake, oriented to person and oriented to place Speech: speech normal Psych affect normal Psych Narrative: Very pleasant, eye contact is good and patient interacts appropriately despite some mild confusion Results Lab / Micro Data 08/25/24 16:18 08/25/24 16:18 Labs: Laboratory Results - last 24 hr 08/25/24 16:18: WBC 6.5, RBC 4.30 L, Hgb 12.6 L, Hct 37.6 L, MCV 87.4, MCH 29.3, MCHC 33.5, RDW Std Deviation 44.4 H, RDW Coeff of Maia 14.0, Plt Count 252, MPV 9.3, Immature Gran % (Auto) 0.200, Neut % (Auto) 77.6 H, Lymph % (Auto) 11.3 L, [place] % (Auto) 9.0, Eos % (Auto) 1.4, Baso % (Auto) 0.5, Absolute Neuts (auto) 5.1, Absolute Lymphs (auto) 0.74 L, Nucleated RBC % 0, PT 13.3, INR 1.0, APTT 47.7 H, Sodium 139, Potassium 4.2, Chloride 103, Carbon Dioxide 29.0, Anion Gap 7, BUN 17, Creatinine 1.00, Est GFR (MDRD) Af Amer 96, Est GFR (MDRD) Non-Af 79, BUN/Creatinine Ratio 17.0, Glucose 116 H, Lactic Acid 3.1 H*, Calcium 9.3, Total Bilirubin 0.40, AST 23, ALT 23, Alkaline Phosphatase 117, Total Protein 8.0, Albumin 3.3, Globulin 4.7 H, Albumin/Globulin Ratio 0.7 L 08/25/24 16:47: Urine Color Yellow, Urine Clarity Sl. Cloudy, Urine pH 6.0, Ur Specific Champion 1.025, Urine Protein 500 H, Urine Glucose (UA) Normal, Urine Ketones Negative, Urine Occult Blood 25 H, Urine Nitrite Negative, Urine Bilirubin Negative, Urine Urobilinogen 1 H, Ur Leukocyte Esterase 500 H, Urine RBC 5-10 SEEN, Urine WBC 25-50 SEEN, Ur Squamous Epith Cells 0 SEEN, Urine Bacteria 2+, Hyaline Casts 0-5 SEEN, Urine Mucus 0 SEEN, Urine Yeast 2+ Micro: Microbiology 08/25/24 16:47 Mucosa - Nose SARS-CoV-2, Influenza & RSV (PCR) - Final Imaging Radiology Impression Brain CT 08/25/24 16:22 IMPRESSION: 1. Stable exam. 2. Diffuse involutional change, moderate to extensive chronic microvascular deep white matter disease, and areas of remote infarct including the RIGHT basal ganglia and medial aspect of the RIGHT cerebellar hemisphere. 3. No intracranial mass, hemorrhage or acute territorial infarct. 4. No radiographically significant sinus disease.. Electronically Signed: Flash Bird MD at 17:29 EST , Chest X-Ray 08/25/24 17:00 IMPRESSION: 1. Postop changes of prior median sternotomy. 2. No evidence of congestive failure. 3. Atelectasis at the LEFT lung base and blunting LEFT CP angle. Remaining lung zones clear. 4. Unchanged deformity of the proximal LEFT humerus. Electronically Signed: Flash Bird MD at 17:31 EST , Assessment & Plan Assessment/Plan (1) Complicated urinary tract infection: (2) Elevated lactic acid level: (3) Acute febrile illness: PLAN: Plan Complicated urinary tract infection -Patient does not meet criteria for sepsis -Previous cultures have demonstrated multi a drug-resistant organisms including E. coli, Acinetobacter and VRE -Will utilize meropenem for now -Blood and urine cultures are pending -Aggressive IV fluids with 2 more liters given at 125 cc/h then stop -Infectious disease consultation for assistance in management given history -I have asked that nursing exchange suprapubic catheter Lactic acidosis -Suspect related to the above and some mild dehydration -Trended down with IV fluids -Will continue to hydrate -Patient is hemodynamically stable with actually elevated blood pressure Mild hyperbilirubinemia -Likely related to the above -Recheck in a.m. after hydration Toxic/metabolic encephalopathy -Mild confusion -Likely related to the above -Monitor Anemia -Hemoglobin is actually much higher than usual at 12.6 -Suspect he may have some hemoconcentration and do anticipate drop in the next 12 hours with IV fluids -Previous baseline was between 9 and 11 DM-2 -Hold home oral agents -Continue home insulin -SSI as ordered -Accu-Cheks as ordered -Cardiac/carb controlled diet Diabetic neuropathy -Continue home gabapentin CAD/essential hypertension/hyperlipidemia/PVD -CABG x 5 05/30/2008 ZUNIGA-LAD and D1, Free KIMBERLYN-PDA, SVG-Ramus, SVG-OM1 -BDD-[id number]-Ramus 01/02/15 -Continue home aspirin -Continue home amlodipine -Continue home atorvastatin -Continue home carvedilol -continue home Plavix History of colon cancer -Status post colectomy -Recent ostomy revision in November 2023 -Chronic and stable Urinary retention -Occurred postoperatively after ostomy revision -Now has suprapubic catheter -Continue home Flomax History of GERD -Patient is no longer on any medications for this -monitor clinically Depression/anxiety -Continue home duloxetine DVT prophylaxis -Subcu Lovenox daily CODE STATUS -DNR CCA okay for short-term intubation per discussion with patient and at the time of admission Charges/Coding Visit Charges Inpatient E&M: 52587 Init Hosp L3
[2024-08-25] MEDS: Acetaminophen 500 MG Tablet 1000 MG PO (18:44)
[2024-08-25 20:18] LABS: Lactic Acid 2.5 mmol/L (0.4-1.9)
[2024-08-25 21:13] LABS: Reflex Lactate? Y
[2024-08-25 22:06] LABS: Lactic Acid 2.3 mmol/L (0.4-1.9)
[2024-08-25 22:29] LABS: Reflex Lactate? Y
[2024-08-25] MEDS: Calcium Carbonate 500 MG Tablet PO (23:09)
[2024-08-25] MEDS: Carvedilol 6.25 MG Tablet PO (23:10)
[2024-08-25] MEDS: Tamsulosin HCl 0.4 MG Capsule 0.8 MG PO (23:10)
[2024-08-25] MEDS: Morphine 2 MG/ML Syringe IM (23:10)
[2024-08-25] MEDS: MELATONIN 3 MG TABLET PO (23:11)
[2024-08-25] MEDS: Lactated Ringers 1,000 ML 125 ML IV (23:11)
[2024-08-25] MEDS: Atorvastatin Calcium 20 MG Tablet PO (23:11)
[2024-08-25] MEDS: Meropenem 1 GM in 0.9% Normal Saline (100mL MB+) 100 ML IV (23:11)
[2024-08-25] MEDS: 0.9% Saline Lock 10 ML Syringe IV (23:17)
[2024-08-26 00:37] LABS: Bedside Glucose 61 mg/dL (74-106)
[2024-08-26 00:41] LABS: Bedside Glucose 80 mg/dL (74-106)
[2024-08-26 04:00] VITALS: BP 130/57; PULSE 81; RESP 16; TEMP 37.1; O2SAT 97
[2024-08-26 04:39] VITALS: BMI 22.4
[2024-08-26 06:01] LABS: Absolute Lymphocyte Count 0.77 X10^3/uL (0.83-4.51); Absolute Neutrophil Count 4.3 X10^3/uL (2.0-7.7); Basophil# 0.01 X10^3/uL; Basophil% 0.2 % (0-1); Eosinophil# 0.09 X10^3/uL; Eosinophils% 1.5 % (0-5); Hematocrit 30.6 % (40-54); Hemoglobin 10.1 g/dL (13.0-16.5); Lymphocyte # 0.77 X10^3/ul (0.83-4.51); Lymphocyte % 12.9 % (19-41); Mean Corpuscular Hgb 29.1 pg (27.0-32.0); Mean Corpuscular Volume 88.2 fL (80-94); Mean Platelet Vol. 9.6 fl (6.2-12.0); Monocyte# 0.79 X10^3/uL; Monocyte% 13.2 % (0-10); NRBC Flagged by Analyzer 0 % (0-5); Neutrophil # 4.32 X10^3/uL (2.7-7.7); Platelet Count 227 K/mm3 (150-450); RBC Distribution Width CV 14.1 % (11.6-14.6); RBC Distribution Width SD 44.6 fl (35.1-43.9); Red Blood Count 3.47 M/mm3 (4.6-6.2)
[2024-08-26 06:30] LABS: ALB/GLOB Ratio 0.8 RATIO (0.9-2.4); AST(SGOT) 17 U/L (15-37); Alanine Aminotransfer ALT/SGPT 19 U/L (16-61); Albumin, Serum 2.8 g/dL (3.2-5.0); Alkaline Phosphatase 87 U/L (45-117); Anion Gap 6 (5-15); BUN 11 mg/dL (7-18); BUN/Creat Ratio 17.2 RATIO (10-20); Calcium,Total 8.5 mg/dL (8.5-10.1); Chloride 105 mmol/L (98-107); Creatinine, Serum 0.64 mg/dL (0.70-1.30); EST Glomerular Filtration Rate 133 mL/min (>60); Est Glom Filt Rate - Afr Amer 161 mL/min (>60); Estimated Creatinine Clearance 83.51 ml/min; Globulin 3.7 g/dL (2.2-4.2); Glucose 73 mg/dL (74-106); Magnesium 1.3 mg/dL (1.6-2.6); Phosphorus 3.5 mg/dL (2.5-4.9); Potassium 3.4 mmol/L (3.5-5.1); Protein, Total 6.5 g/dL (6.4-8.2); Sodium Level 137 mmol/L (136-145)
[2024-08-26] MEDS: Meropenem 1 GM in 0.9% Normal Saline (100mL MB+) 100 ML IV ×3 (06:46→22:52)
[2024-08-26 07:23] LABS: Bedside Glucose 53 mg/dL (74-106)
[2024-08-26 07:23] LABS: Bedside Glucose 57 mg/dL (74-106)
[2024-08-26] MEDS: Lactated Ringers 1,000 ML 125 ML IV (07:39)
[2024-08-26 07:53] LABS: Bedside Glucose 102 mg/dL (74-106)
[2024-08-26 08:15] VITALS: BP 144/70; PULSE 81; RESP 18; TEMP 37.1; O2SAT 97
[2024-08-26] MEDS: Aspirin 81 MG TAB.CHEW PO (09:41)
[2024-08-26] MEDS: Gabapentin 300 MG Capsule PO (09:42)
[2024-08-26] MEDS: Calcium Carbonate 500 MG Tablet PO ×3 (09:42→17:30)
[2024-08-26] MEDS: Potassium Chloride Oral Tablet 20 MEQ PO (09:42)
[2024-08-26] MEDS: Carvedilol 6.25 MG Tablet PO ×2 (09:42→17:30)
[2024-08-26] MEDS: Enoxaparin 40 MG/0.4 ML Syringe SC (09:43)
[2024-08-26] MEDS: DULoxetine Hcl 30 MG Capsule PO (09:43)
[2024-08-26] MEDS: amLODIPine 10 MG Tablet PO (09:43)
[2024-08-26] MEDS: Clopidogrel Bisulfate 75 MG Tablet PO (09:43)
--- NOTE | 2024-08-26 11:53 | CON.PCM.UR_ITS ---
HPI Consult Data Date of Consult: 08/26/24 HPI Narrative Reason for Consultation: Suprapubic catheter HPI Narrative: MITCH VEGA, is a 68 M who presents to the hospital with multiple medical problems has an ileostomy in place also have a suprapubic catheter in place. This was placed by an outside urologist. The hospitalist is consummated to change suprapubic catheter but on inspection this catheter was just put in just fresh back in July so it is too soon to change it is actually catheter still stitched and the catheter will be removed at this point the track may not heal and he may have to go through the whole procedure again so the superacute pubic catheter was not changed he will need to follow-up with his urologist that that placed a suprapubic catheter at the change SP tube for now there is no reason to change it. [facility] Medical History Ileostomy present Colostomy in place Orthostatic hypotension Essential hypertension Loss of hearing Wears glasses Cancer Depression Insulin dependent diabetes mellitus Walker as ambulation aid Arthritis High cholesterol Restless legs Injury of back Injury of head and neck Syncope Dietary restriction Gastric reflux Non-smoker CPAP (continuous positive airway pressure) dependence Shortness of breath on exertion Leg cramps History of pain when walking History of echocardiogram History of stress test Cardiology follow-up encounter History of heart attack Colorectal cancer Dysphagia invasive rectal adenocarcinoma Diabetic neuropathy Restrictive lung disease Type 2 diabetes mellitus Anxiety disorder GERD (gastroesophageal reflux disease) Carotid artery disease Obstructive sleep apnea 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 Peripheral vascular occlusive disease CVA (cerebral vascular accident) ALEJANDRO (obstructive sleep apnea) Dyslipidemia HTN (hypertension) Home Medications ?Medication ?Instructions ?Recorded ?Last Taken ?Type aspirin 81 mg chewable tablet 81 mg PO DAILY heart health 03/20/16 03/10/23 History insulin lispro 100 unit/mL 1 sliding scale dose subcut TIDCM 09/26/21 03/10/23 History subcutaneous pen (Humalog KwikPen diabetes (U-100) Insulin) duloxetine 60 mg capsule,delayed 30 mg (1/2 x 60 mg) PO DAILY 03/12/23 03/10/23 Rx release depression #30 caps clopidogrel 75 mg tablet 75 mg PO DAILY blood thinner #90 10/10/23 Unknown Rx tabs pantoprazole 40 mg tablet,delayed 40 mg PO DAILY GERD 12/01/23 Unknown History release sodium chloride 0.9 % 100 ea IV .continuous fluid 12/02/23 Unknown History imbalance amlodipine 10 mg tablet 10 mg PO DAILY BLOOD PRESSURE 01/31/24 Unknown History calcium carbonate (Tums) 300 mg PO TID PRN dyspepsia 01/31/24 Unknown History melatonin 3 mg tablet 3 mg PO QHS 01/31/24 Unknown History simethicone 125 mg chewable tablet 125 mg PO 4X/DAY PRN abdominal 01/31/24 Unknown History distention sodium chloride 0.65 % nasal spray 2 spray intranasal Q4H PRN dry 01/31/24 Unknown History aerosol ([place] Saline) nasal passages tamsulosin 0.4 mg capsule (Flomax) 0.8 mg PO QHS 01/31/24 Unknown History carvedilol 6.25 mg tablet 6.25 mg PO BID #0 tabs 02/09/24 Unknown Rx mirtazapine 15 mg tablet 15 mg PO QHS #0 tabs 02/09/24 Unknown Rx acetaminophen 325 mg capsule 650 mg PO Q6H PRN pain 05/21/24 Unknown History atorvastatin 20 mg tablet 20 mg PO QDAY 05/21/24 Unknown History insulin glargine-yfgn 100 unit/mL 50 unit subcut BID 05/21/24 Unknown History (3 mL) subcutaneous pen (Semglee (insulin glargine-yfgn) Pen) amoxicillin 500 mg capsule 500 mg PO TID 08/25/24 Unknown History gabapentin 300 mg capsule 300 mg PO DAILY 08/25/24 Unknown History metformin 500 mg tablet,extended 500 mg PO BID 08/25/24 Unknown History release 24 hr potassium chloride 20 mEq 20 meq PO DAILY 08/25/24 Unknown History tablet,extended release(part/cryst) (Klor-Con M) Allergy/AdvReac Type Severity Reaction Status Date / Time No Known Allergies Allergy Verified 08/25/24 15:50 Family History Father CAD (coronary artery disease) Hypertension Cancer leukemia Diabetes Heart disease High cholesterol Mother CVA (cerebral vascular accident) Diabetes Breast cancer Brother Diabetes Surgical History History of bilateral cataract extraction History of left heart catheterization (LHC) (~01/22/15) History of right and left heart catheterization (LHC) (~12/25/14) History of eye surgery PTCA Left Anterior Tibial and Paroneal Artery History of coronary artery stent placement (01/02/15) H/O coronary artery bypass surgery (05/30/08) History of right-sided carotid endarterectomy Excision Max.Zygoma Face Tumor History of tonsillectomy History of herniorrhaphy Social History Smoking Status: Never smoker alcohol intake: never substance use type: does not use caffeine: Yes what type of physical activity do you participate in: none Lab / Micro Data 08/26/24 05:07 08/26/24 05:07 Labs: Laboratory Results - last 24 hr 08/25/24 16:18: WBC 6.5, RBC 4.30 L, Hgb 12.6 L, Hct 37.6 L, MCV 87.4, MCH 29.3, MCHC 33.5, RDW Std Deviation 44.4 H, RDW Coeff of Maia 14.0, Plt Count 252, MPV 9.3, Immature Gran % (Auto) 0.200, Neut % (Auto) 77.6 H, Lymph % (Auto) 11.3 L, Dixie % (Auto) 9.0, Eos % (Auto) 1.4, Baso % (Auto) 0.5, Absolute Neuts (auto) 5.1, Absolute Lymphs (auto) 0.74 L, Nucleated RBC % 0, PT 13.3, INR 1.0, APTT 47.7 H, Sodium 139, Potassium 4.2, Chloride 103, Carbon Dioxide 29.0, Anion Gap 7, BUN 17, Creatinine 1.00, Est GFR (MDRD) Af Amer 96, Est GFR (MDRD) Non-Af 79, BUN/Creatinine Ratio 17.0, Glucose 116 H, Lactic Acid 3.1 H*, Calcium 9.3, Total Bilirubin 0.40, AST 23, ALT 23, Alkaline Phosphatase 117, Total Protein 8.0, Albumin 3.3, Globulin 4.7 H, Albumin/Globulin Ratio 0.7 L 08/25/24 16:47: Urine Color Yellow, Urine Clarity Sl. Cloudy, Urine pH 6.0, Ur Specific [place] 1.025, Urine Protein 500 H, Urine Glucose (UA) Normal, Urine Ketones Negative, Urine Occult Blood 25 H, Urine Nitrite Negative, Urine Bilirubin Negative, Urine Urobilinogen 1 H, Ur Leukocyte Esterase 500 H, Urine RBC 5-10 SEEN, Urine WBC 25-50 SEEN, Ur Squamous Epith Cells 0 SEEN, Urine Bacteria 2+, Hyaline Casts 0-5 SEEN, Urine Mucus 0 SEEN, Urine Yeast 2+ 08/25/24 19:28: Lactic Acid 2.5 H* 08/25/24 21:30: Lactic Acid 2.3 H* 08/25/24 23:03: POC Glucose 61 L 08/26/24 00:22: POC Glucose 80 08/26/24 05:07: WBC 6.0, RBC 3.47 L, Hgb 10.1 L, Hct 30.6 L, MCV 88.2, MCH 29.1, MCHC 33.0, RDW Std Deviation 44.6 H, RDW Coeff of Maia 14.1, Plt Count 227, MPV 9.6, Immature Gran % (Auto) 0.200, Neut % (Auto) 72.0 H, Lymph % (Auto) 12.9 L, Dixie % (Auto) 13.2 H, Eos % (Auto) 1.5, Baso % (Auto) 0.2, Absolute Neuts (auto) 4.3, Absolute Lymphs (auto) 0.77 L, Nucleated RBC % 0, Sodium 137, Potassium 3.4 L, Chloride 105, Carbon Dioxide 26.0, Anion Gap 6, BUN 11, Creatinine 0.64 L, Estim Creat Clear Calc 83.51, Est GFR (MDRD) Af Amer 161, Est GFR (MDRD) Non-Af 133, BUN/Creatinine Ratio 17.2, Glucose 73 L, Calcium 8.5, Phosphorus 3.5, M agnesium 1.3 L, Total Bilirubin 0.30, AST 17, ALT 19, Alkaline Phosphatase 87, Total Protein 6.5, Albumin 2.8 L, Globulin 3.7, Albumin/Globulin Ratio 0.8 L 08/26/24 06:39: POC Glucose 53 L 08/26/24 06:58: POC Glucose 57 L 08/26/24 07:35: POC Glucose 102 Micro: Microbiology 08/25/24 16:47 Urine Catheter - Catheter Urine Culture - 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 lactose security services manager 08/25/24 16:47 Mucosa - Nose SARS-CoV-2, Influenza & RSV (PCR) - Final Imaging Radiology Impression Brain CT 08/25/24 16:22 IMPRESSION: 1. Stable exam. 2. Diffuse involutional change, moderate to extensive chronic microvascular deep white matter disease, and areas of remote infarct including the RIGHT basal ganglia and medial aspect of the RIGHT cerebellar hemisphere. 3. No intracranial mass, hemorrhage or acute territorial infarct. 4. No radiographically significant sinus disease.. Electronically Signed: Flash Bird MD at 17:29 EST , Chest X-Ray 08/25/24 17:00 IMPRESSION: 1. Postop changes of prior median sternotomy. 2. No evidence of congestive failure. 3. Atelectasis at the LEFT lung base and blunting LEFT CP angle. Remaining lung zones clear. 4. Unchanged deformity of the proximal LEFT humerus. Electronically Signed: Flash Bird MD at 17:31 EST , Abdomen/Pelvis CT 08/25/24 18:40 IMPRESSION: 1. Bilateral mid abdominal ostomies. No evidence of bowel obstruction. 2. Significant presacral soft tissue thickening without definitive mass or abnormal fluid collection. 3. Suprapubic catheter projects in normal position. 4. No evidence of obstructive uropathy however extensive renal vascular calcifications present. 5. 2 small calcifications appear to be projecting within the gallbladder neck versus cystic duct without alejandro obstruction. No ductal dilatation. Electronically Signed: Flash Bird MD at 20:08 EST ,
[2024-08-26 12:13] LABS: Bedside Glucose 132 mg/dL (74-106)
--- NOTE | 2024-08-26 12:48 | PN_ITS ---
Subjective Subjective Patient seen and examined. He complained of not being able to sleep during the night. He denied any fever, chills, cough, palpitations, dizziness, nausea, vomiting or any other symptoms. Review of systems is otherwise negative. Objective Data Objective Data Vital Signs: Vital Signs Temp Pulse Resp BP Pulse Ox O2 Del Method 98.8 F 81 18 144/70 H 97 Room Air 08/26/24 08:15 08/26/24 08:15 08/26/24 08:15 08/26/24 08:15 08/26/24 08:15 08/26/24 09:55 Oxygen Delivery Method Room Air Weight: 143 lb 4.807 oz Body Mass Index (BMI) 22.4 Intake & Output: Intake and Output for Last 24 Hours 08/24/24 08/25/24 08/26/24 23:59 23:59 23:59 Intake Total 2049 / 2049 1720 / 1720 Output Total 1700 / 1700 Balance 2050 / 1425 Lab / Micro Data 08/26/24 05:07 08/26/24 05:07 Labs: Laboratory Results - last 24 hr 08/25/24 16:18: WBC 6.5, RBC 4.30 L, Hgb 12.6 L, Hct 37.6 L, MCV 87.4, MCH 29.3, MCHC 33.5, RDW Std Deviation 44.4 H, RDW Coeff of Maia 14.0, Plt Count 252, MPV 9.3, Immature Gran % (Auto) 0.200, Neut % (Auto) 77.6 H, Lymph % (Auto) 11.3 L, Coffee % (Auto) 9.0, Eos % (Auto) 1.4, Baso % (Auto) 0.5, Absolute Neuts (auto) 5.1, Absolute Lymphs (auto) 0.74 L, Nucleated RBC % 0, PT 13.3, INR 1.0, APTT 47.7 H, Sodium 139, Potassium 4.2, Chloride 103, Carbon Dioxide 29.0, Anion Gap 7, BUN 17, Creatinine 1.00, Est GFR (MDRD) Af Amer 96, Est GFR (MDRD) Non-Af 79, BUN/Creatinine Ratio 17.0, Glucose 116 H, Lactic Acid 3.1 H*, Calcium 9.3, Total Bilirubin 0.40, AST 23, ALT 23, Alkaline Phosphatase 117, Total Protein 8.0, Albumin 3.3, Globulin 4.7 H, Albumin/Globulin Ratio 0.7 L 08/25/24 16:47: Urine Color Yellow, Urine Clarity Sl. Cloudy, Urine pH 6.0, Ur Specific [place] 1.025, Urine Protein 500 H, Urine Glucose (UA) Normal, Urine Ketones Negative, Urine Occult Blood 25 H, Urine Nitrite Negative, Urine Bilirubin Negative, Urine Urobilinogen 1 H, Ur Leukocyte Esterase 500 H, Urine RBC 5-10 SEEN, Urine WBC 25-50 SEEN, Ur Squamous Epith Cells 0 SEEN, Urine Bacteria 2+, Hyaline Casts 0-5 SEEN, Urine Mucus 0 SEEN, Urine Yeast 2+ 08/25/24 19:28: Lactic Acid 2.5 H* 08/25/24 21:30: Lactic Acid 2.3 H* 08/25/24 23:03: POC Glucose 61 L 08/26/24 00:22: POC Glucose 80 08/26/24 05:07: WBC 6.0, RBC 3.47 L, Hgb 10.1 L, Hct 30.6 L, MCV 88.2, MCH 29.1, MCHC 33.0, RDW Std Deviation 44.6 H, RDW Coeff of Maia 14.1, Plt Count 227, MPV 9.6, Immature Gran % (Auto) 0.200, Neut % (Auto) 72.0 H, Lymph % (Auto) 12.9 L, [place] % (Auto) 13.2 H, Eos % (Auto) 1.5, Baso % (Auto) 0.2, Absolute Neuts (auto) 4.3, Absolute Lymphs (auto) 0.77 L, Nucleated RBC % 0, Sodium 137, Potassium 3.4 L, Chloride 105, Carbon Dioxide 26.0, Anion Gap 6, BUN 11, Creatinine 0.64 L, Estim Creat Clear Calc 83.51, Est GFR (MDRD) Af Amer 161, Est GFR (MDRD) Non-Af 133, BUN/Creatinine Ratio 17.2, Glucose 73 L, Calcium 8.5, Phosphorus 3.5, M agnesium 1.3 L, Total Bilirubin 0.30, AST 17, ALT 19, Alkaline Phosphatase 87, Total Protein 6.5, Albumin 2.8 L, Globulin 3.7, Albumin/Globulin Ratio 0.8 L 08/26/24 06:39: POC Glucose 53 L 08/26/24 06:58: POC Glucose 57 L 08/26/24 07:35: POC Glucose 102 08/26/24 11:50: POC Glucose 132 H Micro: Microbiology 08/25/24 16:47 Urine Catheter - Catheter Urine Culture - 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 lactose feed mixer helper 08/25/24 16:47 Mucosa - Nose SARS-CoV-2, Influenza & RSV (PCR) - Final Radiography Diagnostic Testing: Radiology Impression Brain CT 08/25/24 16:22 IMPRESSION: 1. Stable exam. 2. Diffuse involutional change, moderate to extensive chronic microvascular deep white matter disease, and areas of remote infarct including the RIGHT basal ganglia and medial aspect of the RIGHT cerebellar hemisphere. 3. No intracranial mass, hemorrhage or acute territorial infarct. 4. No radiographically significant sinus disease.. Electronically Signed: Flash Bird MD at 17:29 EST , Chest X-Ray 08/25/24 17:00 IMPRESSION: 1. Postop changes of prior median sternotomy. 2. No evidence of congestive failure. 3. Atelectasis at the LEFT lung base and blunting LEFT CP angle. Remaining lung zones clear. 4. Unchanged deformity of the proximal LEFT humerus. Electronically Signed: Flash Bird MD at 17:31 EST , Abdomen/Pelvis CT 08/25/24 18:40 IMPRESSION: 1. Bilateral mid abdominal ostomies. No evidence of bowel obstruction. 2. Significant presacral soft tissue thickening without definitive mass or abnormal fluid collection. 3. Suprapubic catheter projects in normal position. 4. No evidence of obstructive uropathy however extensive renal vascular calcifications present. 5. 2 small calcifications appear to be projecting within the gallbladder neck versus cystic duct without alejandro obstruction. No ductal dilatation. Electronically Signed: Flash Bird MD at 20:08 EST , Physical Exam Const alert, oriented x3, no apparent distress and well nourished General Appearance: cooperative HEENT normocephalic and head/scalp atraumatic Eyes PERRL and EOMs intact bilaterally Neck no lymphadenopathy and supple Lymph Lymphatic: no lymphadenopathy noted Resp normal respiratory effort, normal air movement and clear to auscultation bilaterally Resp Narrative: on room air. Cardio regular rate, regular rhythm, S1 normal heart sound, S2 normal heart sound and no murmurs GI normal to inspection, nondistended, normoactive bowel sounds, soft to palpation, non-tender and non-distended GI Narrative: has colostomy bag in place, containing formed stool. Extremity normal capillary refill, no clubbing, cyanosis or edema and no calf tenderness General Extremity: no tenderness to palpation of joints or extremities Skin General Skin Exam: no breakdown Neuro CN's II-XII intact bilaterally, no focal motor deficits and no sensory deficits noted Motor Exam: strength 5/5 throughout and general weakness Psych thought process normal and cooperative Appearance: appropriate Assessment & Plan Assessment/Plan (1) Complicated urinary tract infection: (2) Elevated lactic acid level: PLAN: Plan #UTI * patient has a history of complicated UTI. * previous cultures have grown MDR E coli, Acinetobacter and VRE * on IV meropenem * ID on board. * urology consulted to help with mackenzie catheter exchange. * urine cultures growing GNR lactose feed mixer helper. Speciation is pending. along with sensitivities and specificities. * #Lactic acidosis: resolved #Hypokalemia: K is 3.4 today. Will replace and trend. #Hypomagnesemia: mg is 1.3. Will replace and trend. #Acute encephalopathy: * improved. Feels much better. Will monitor. * #Type 2 diabetes mellitus with neuropathy: * on lantus. ISS. * Accuchecks ACHS * #CAD s/p CABG: on aspirin, statin, plavix and carvedilol #History of colon cancer: s/p colectomy and recent ostomy revision in November 2023. #HIstory of urinary retention * This occurred after he had the ostomy revision and now has a suprapubic catheter in situ. On Flomax #Depression and anxiety: On duloxetine DVT prophylaxis: Lovenox # Charges/Coding Visit Charges Inpatient E&M: 10935 Subs Hosp L2
[2024-08-26 14:02] VITALS: BP 141/73; PULSE 78; RESP 18; TEMP 36.6; O2SAT 97
--- NOTE | 2024-08-26 14:28 | CASEMGMT ---
RN NOLBERTO Assessment Face to Face with patient for initial transition planning/care coordination assessment. RN CM introduced self and role at [facility], pt voices understanding. Pt is A&Ox4 and is resting comfortably in the chair and is calm. Care providers, pharmacy, and demographics verified. Admitting dx: UTI LACE Strata: 2 PCP: Kendy Modi Specialists: Jorden SALAZAR (Oncology), Dr. Merritt Barfield (Urology) Preferred Pharmacy: [facility] Insurance: [facility] A/B Prescription Benefit: Yes LNOK: Emelia (W), Agustin (Son) Living Arrangements: Pt lives with his in a single story home with 2 steps to enter ADLs/IADLs: Pt states that his helps him at home with showering, dressing, meals, etc. Pt has an ileostomy and suprapubic catheter that his , himself, and [facility] nurse helps care for. Transportation: Pt does not drive. Pt drives. Denies concerns DME: CPAP @ HS with no additional oxygen. Functioning BGM with sufficient supplies. Walk-in shower with a shower chair and grab bars, raised toilet seat, cane, FWW, and colostomy supplies. HHC/SNF: Pt states that he is active with a HHC agency out of [place]. Pt states it is SN only. This RN CM questioned if it is [facility]. Pt states that he is unsure and that his will know and that she will be into the hospital soon. Pt has been to [facility]. Pt?s goal: Return home once medically ready Plan: Home with the continuation of skilled HHC. Follow for IV ATB needs. Current 6-Click is 15 and therapy is pending. Urine culture sensitivities pending. Follow ID, wound RN, and Urology consults. At this time, the pt states that he plans to and feels safe returning home with his and HHC once medically ready. Pt currently denies SNF needs. Report given to AIR CONDITIONING SERVICE TECHNICIAN CM. CM to follow. Melany Barnes RN, CM
[2024-08-26] MEDS: 0.9% Normal Saline (100mL Bag) 100 ML 15 ML IV (15:11)
[2024-08-26] MEDS: Magnesium Sulfate 4gm/100mL 4 GM/100 ML IV.SOLN. IV (15:12)
[2024-08-26 15:48] VITALS: O2SAT 97
--- NOTE | 2024-08-26 16:43 | CON.PCM.ID_ITS ---
Assessment & Plan Assessment/Plan (1) Complicated urinary tract infection: PLAN: Ucx with GNR. Improved on meropenem, will continue. Will follow, thank you HPI Consult Data Date of Consult: 08/26/24 HPI Narrative Reason for Consultation: uti HPI Narrative: MITCH VEGA, is a 68 M with chronic mackenzie, presented with two days progressive confusion, fatigue, headache, mild chills. Came to ED, admitted on meropenem, feeling much better, nearly back to baseline per family at bedside. o abd pain, no flank pain. Mild nausea and loss of appetite. Full ROS performed and neg except as noted above. [facility] Medical History Ileostomy present Colostomy in place Orthostatic hypotension Essential hypertension Loss of hearing Wears glasses Cancer Depression Insulin dependent diabetes mellitus Walker as ambulation aid Arthritis High cholesterol Restless legs Injury of back Injury of head and neck Syncope Dietary restriction Gastric reflux Non-smoker CPAP (continuous positive airway pressure) dependence Shortness of breath on exertion Leg cramps History of pain when walking History of echocardiogram History of stress test Cardiology follow-up encounter History of heart attack Colorectal cancer Dysphagia invasive rectal adenocarcinoma Diabetic neuropathy Restrictive lung disease Type 2 diabetes mellitus Anxiety disorder GERD (gastroesophageal reflux disease) Carotid artery disease Obstructive sleep apnea 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 Peripheral vascular occlusive disease CVA (cerebral vascular accident) ALEJANDRO (obstructive sleep apnea) Dyslipidemia HTN (hypertension) Home Medications ?Medication ?Instructions ?Recorded ?Last Taken ?Type aspirin 81 mg chewable tablet 81 mg PO DAILY heart health 03/20/16 03/10/23 History insulin lispro 100 unit/mL 1 sliding scale dose subcut TIDCM 09/26/21 03/10/23 History subcutaneous pen (Humalog KwikPen diabetes (U-100) Insulin) duloxetine 60 mg capsule,delayed 30 mg (1/2 x 60 mg) PO DAILY 03/12/23 03/10/23 Rx release depression #30 caps clopidogrel 75 mg tablet 75 mg PO DAILY blood thinner #90 10/10/23 Unknown Rx tabs pantoprazole 40 mg tablet,delayed 40 mg PO DAILY GERD 12/01/23 Unknown History release sodium chloride 0.9 % 100 ea IV .continuous fluid 12/02/23 Unknown History imbalance amlodipine 10 mg tablet 10 mg PO DAILY BLOOD PRESSURE 01/31/24 Unknown History calcium carbonate (Tums) 300 mg PO TID PRN dyspepsia 01/31/24 Unknown History melatonin 3 mg tablet 3 mg PO QHS 01/31/24 Unknown History simethicone 125 mg chewable tablet 125 mg PO 4X/DAY PRN abdominal 01/31/24 Unknown History distention sodium chloride 0.65 % nasal spray 2 spray intranasal Q4H PRN dry 01/31/24 Unknown History aerosol ([place] Saline) nasal passages tamsulosin 0.4 mg capsule (Flomax) 0.8 mg PO QHS 01/31/24 Unknown History carvedilol 6.25 mg tablet 6.25 mg PO BID #0 tabs 02/09/24 Unknown Rx mirtazapine 15 mg tablet 15 mg PO QHS #0 tabs 02/09/24 Unknown Rx acetaminophen 325 mg capsule 650 mg PO Q6H PRN pain 05/21/24 Unknown History atorvastatin 20 mg tablet 20 mg PO QDAY 05/21/24 Unknown History insulin glargine-yfgn 100 unit/mL 50 unit subcut BID 05/21/24 Unknown History (3 mL) subcutaneous pen (Semglee (insulin glargine-yfgn) Pen) amoxicillin 500 mg capsule 500 mg PO TID 08/25/24 Unknown History gabapentin 300 mg capsule 300 mg PO DAILY 08/25/24 Unknown History metformin 500 mg tablet,extended 500 mg PO BID 08/25/24 Unknown History release 24 hr potassium chloride 20 mEq 20 meq PO DAILY 08/25/24 Unknown History tablet,extended release(part/cryst) (Klor-Con M) Allergy/AdvReac Type Severity Reaction Status Date / Time No Known Allergies Allergy Verified 08/25/24 15:50 Family History Father CAD (coronary artery disease) Hypertension Cancer leukemia Diabetes Heart disease High cholesterol Mother CVA (cerebral vascular accident) Diabetes Breast cancer Brother Diabetes Surgical History History of bilateral cataract extraction History of left heart catheterization (LHC) (~01/22/15) History of right and left heart catheterization (LHC) (~12/25/14) History of eye surgery PTCA Left Anterior Tibial and Paroneal Artery History of coronary artery stent placement (01/02/15) H/O coronary artery bypass surgery (05/30/08) History of right-sided carotid endarterectomy Excision Max.Zygoma Face Tumor History of tonsillectomy History of herniorrhaphy Social History Smoking Status: Never smoker alcohol intake: never substance use type: does not use caffeine: Yes what type of physical activity do you participate in: none Physical Exam Const alert, oriented x3 and no apparent distress General Appearance: cooperative HEENT normocephalic and head/scalp atraumatic Eyes PERRL and EOMs intact bilaterally Neck supple and No nodes Resp normal air movement and clear to auscultation bilaterally Cardio regular rate and regular rhythm GI soft to palpation, non-tender and non-distended Extremity General Extremity: Negative for edema Skin no rashes or lesions noted Neuro CN's II-XII intact bilaterally Lab / Micro Data Attestation: I reviewed the patient's lab results. 08/26/24 05:07 08/26/24 05:07 Labs: Laboratory Results - last 24 hr 08/25/24 16:18: PT 13.3, INR 1.0, APTT 47.7 H, Sodium 139, Potassium 4.2, Chloride 103, Carbon Dioxide 29.0, Anion Gap 7, BUN 17, Creatinine 1.00, Est GFR (MDRD) Af Amer 96, Est GFR (MDRD) Non-Af 79, BUN/Creatinine Ratio 17.0, Glucose 116 H, Lactic Acid 3.1 H*, Calcium 9.3, Total Bilirubin 0.40, AST 23, ALT 23, Alkaline Phosphatase 117, Total Protein 8.0, Albumin 3.3, Globulin 4.7 H, A lbumin/Globulin Ratio 0.7 L 08/25/24 16:47: Urine Color Yellow, Urine Clarity Sl. Cloudy, Urine pH 6.0, Ur Specific [place] 1.025, Urine Protein 500 H, Urine Glucose (UA) Normal, Urine Ketones Negative, Urine Occult Blood 25 H, Urine Nitrite Negative, Urine Bilirubin Negative, Urine Urobilinogen 1 H, Ur Leukocyte Esterase 500 H, Urine RBC 5-10 SEEN, Urine WBC 25-50 SEEN, Ur Squamous Epith Cells 0 SEEN, Urine Bacteria 2+, Hyaline Casts 0-5 SEEN, Urine Mucus 0 SEEN, Urine Yeast 2+ 08/25/24 19:28: Lactic Acid 2.5 H* 08/25/24 21:30: Lactic Acid 2.3 H* 08/25/24 23:03: POC Glucose 61 L 08/26/24 00:22: POC Glucose 80 08/26/24 05:07: WBC 6.0, RBC 3.47 L, Hgb 10.1 L, Hct 30.6 L, MCV 88.2, MCH 29.1, MCHC 33.0, RDW Std Deviation 44.6 H, RDW Coeff of Maia 14.1, Plt Count 227, MPV 9.6, Immature Gran % (Auto) 0.200, Neut % (Auto) 72.0 H, Lymph % (Auto) 12.9 L, [place] % (Auto) 13.2 H, Eos % (Auto) 1.5, Baso % (Auto) 0.2, Absolute Neuts (auto) 4.3, Absolute Lymphs (auto) 0.77 L, Nucleated RBC % 0, Sodium 137, Potassium 3.4 L, Chloride 105, Carbon Dioxide 26.0, Anion Gap 6, BUN 11, Creatinine 0.64 L, Estim Creat Clear Calc 83.51, Est GFR (MDRD) Af Amer 161, Est GFR (MDRD) Non-Af 133, BUN/Creatinine Ratio 17.2, Glucose 73 L, Calcium 8.5, Phosphorus 3.5, M agnesium 1.3 L, Total Bilirubin 0.30, AST 17, ALT 19, Alkaline Phosphatase 87, Total Protein 6.5, Albumin 2.8 L, Globulin 3.7, Albumin/Globulin Ratio 0.8 L 08/26/24 06:39: POC Glucose 53 L 08/26/24 06:58: POC Glucose 57 L 08/26/24 07:35: POC Glucose 102 08/26/24 11:50: POC Glucose 132 H Micro: Microbiology 08/25/24 16:47 Urine Catheter - Catheter Urine Culture - 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 lactose educational technology specialist 08/25/24 16:47 Mucosa - Nose SARS-CoV-2, Influenza & RSV (PCR) - Final Imaging Radiology Impression Brain CT 08/25/24 16:22 IMPRESSION: 1. Stable exam. 2. Diffuse involutional change, moderate to extensive chronic microvascular deep white matter disease, and areas of remote infarct including the RIGHT basal ganglia and medial aspect of the RIGHT cerebellar hemisphere. 3. No intracranial mass, hemorrhage or acute territorial infarct. 4. No radiographically significant sinus disease.. Electronically Signed: Flash Bird MD at 17:29 EST , Chest X-Ray 08/25/24 17:00 IMPRESSION: 1. Postop changes of prior median sternotomy. 2. No evidence of congestive failure. 3. Atelectasis at the LEFT lung base and blunting LEFT CP angle. Remaining lung zones clear. 4. Unchanged deformity of the proximal LEFT humerus. Electronically Signed: Flash Bird MD at 17:31 EST , Abdomen/Pelvis CT 08/25/24 18:40 IMPRESSION: 1. Bilateral mid abdominal ostomies. No evidence of bowel obstruction. 2. Significant presacral soft tissue thickening without definitive mass or abnormal fluid collection. 3. Suprapubic catheter projects in normal position. 4. No evidence of obstructive uropathy however extensive renal vascular calcifications present. 5. 2 small calcifications appear to be projecting within the gallbladder neck versus cystic duct without alejandro obstruction. No ductal dilatation. Electronically Signed: Flash Bird MD at 20:08 EST ,
[2024-08-26] MEDS: Insulin Lispro 100 UNIT/ML INSULN.PEN SC (17:31)
[2024-08-26 17:44] LABS: Bedside Glucose 191 mg/dL (74-106)
[2024-08-26 20:20] VITALS: BP 148/67; PULSE 80; RESP 16; TEMP 37.2; O2SAT 99
[2024-08-26] MEDS: Insulin Glargine-YFGN 100 UNIT/ML Pen 50 UNIT SC (22:51)
[2024-08-26] MEDS: Tamsulosin HCl 0.4 MG Capsule 0.8 MG PO (22:52)
[2024-08-26] MEDS: Atorvastatin Calcium 20 MG Tablet PO (22:52)
[2024-08-26] MEDS: MELATONIN 3 MG TABLET PO (22:52)
[2024-08-26 23:17] LABS: Bedside Glucose 168 mg/dL (74-106)
[2024-08-27 03:00] VITALS: BP 145/70; PULSE 71; RESP 16; TEMP 36.7; O2SAT 94
[2024-08-27 04:02] VITALS: BMI 22.4
[2024-08-27] MEDS: Meropenem 1 GM in 0.9% Normal Saline (100mL MB+) 100 ML IV (06:41)
[2024-08-27 07:04] LABS: Bedside Glucose 101 mg/dL (74-106)
[2024-08-27 07:05] LABS: Absolute Lymphocyte Count 0.83 X10^3/uL (0.83-4.51); Absolute Neutrophil Count 3.3 X10^3/uL (2.0-7.7); Basophil# 0.02 X10^3/uL; Basophil% 0.4 % (0-1); Eosinophil# 0.16 X10^3/uL; Eosinophils% 3.2 % (0-5); Hematocrit 30.8 % (40-54); Hemoglobin 10.4 g/dL (13.0-16.5); Lymphocyte # 0.83 X10^3/ul (0.83-4.51); Lymphocyte % 16.6 % (19-41); Mean Corp Hgb Conc 33.8 g/dL (32-36); Mean Corpuscular Hgb 29.5 pg (27.0-32.0); Mean Corpuscular Volume 87.3 fL (80-94); Mean Platelet Vol. 9.6 fl (6.2-12.0); Monocyte# 0.64 X10^3/uL; Monocyte% 12.8 % (0-10); NRBC Flagged by Analyzer 0 % (0-5); Neutrophil # 3.33 X10^3/uL (2.7-7.7); Neutrophil % 66.6 % (47-70); Platelet Count 196 K/mm3 (150-450); RBC Distribution Width SD 44.5 fl (35.1-43.9); Red Blood Count 3.53 M/mm3 (4.6-6.2)
[2024-08-27 07:42] LABS: Anion Gap 7 (5-15); BUN 11 mg/dL (7-18); BUN/Creat Ratio 16.1 RATIO (10-20); Calcium,Total 8.8 mg/dL (8.5-10.1); Chloride 103 mmol/L (98-107); Creatinine, Serum 0.68 mg/dL (0.70-1.30); EST Glomerular Filtration Rate 123 mL/min (>60); Est Glom Filt Rate - Afr Amer 149 mL/min (>60); Estimated Creatinine Clearance 83.51 ml/min; Glucose 108 mg/dL (74-106); Potassium 3.4 mmol/L (3.5-5.1); Sodium Level 138 mmol/L (136-145)
[2024-08-27] MEDS: Carvedilol 6.25 MG Tablet PO ×2 (08:09→16:44)
[2024-08-27] MEDS: Aspirin 81 MG TAB.CHEW PO (08:09)
[2024-08-27] MEDS: Potassium Chloride Oral Tablet 20 MEQ PO (08:10)
[2024-08-27] MEDS: Gabapentin 300 MG Capsule PO (08:10)
[2024-08-27] MEDS: DULoxetine Hcl 30 MG Capsule PO (08:11)
[2024-08-27] MEDS: Clopidogrel Bisulfate 75 MG Tablet PO (08:11)
[2024-08-27] MEDS: Enoxaparin 40 MG/0.4 ML Syringe SC (08:11)
[2024-08-27] MEDS: Calcium Carbonate 500 MG Tablet PO ×3 (08:11→16:44)
[2024-08-27] MEDS: amLODIPine 10 MG Tablet PO (08:11)
[2024-08-27 08:16] VITALS: BP 155/73; PULSE 72; RESP 18; TEMP 36.9; O2SAT 97
[2024-08-27] MEDS: Ceftriaxone 1 GM/50 ML BAG IV ×2 (09:58→22:46)
[2024-08-27 10:00] VITALS: O2SAT 97
[2024-08-27] MEDS: Insulin Glargine-YFGN 100 UNIT/ML Pen 50 UNIT SC ×2 (10:08→22:41)
--- NOTE | 2024-08-27 10:26 | PCM.PN.ID ---
Physical Exam Narrative Feeling much better, no fever, no n/v/d, no abd pain Const alert and no apparent distress General Appearance: cooperative Resp normal air movement and clear to auscultation bilaterally Cardio regular rate and regular rhythm GI soft to palpation, non-tender and non-distended Skin no rashes or lesions noted ID ID: Route of nutrition/ use of supplements: [] Nutritional Intake: [] IV Site: [] Robb Catheter: [] Assessment & Plan Assessment/Plan (1) Complicated urinary tract infection: PLAN: Ucx with klebs. Improved on meropenem, now on ceftriaxone. Ok for home with 3 days augmentin. Will follow prn
[2024-08-27] MEDS: 0.9% Saline Lock 10 ML Syringe IV (10:43)
--- NOTE | 2024-08-27 11:22 | PN_ITS ---
Subjective Subjective Patient seen and examined. He had no complaints today. He had an uneventful night. Review of systems otherwise negative. Urine cultures growing Klebsiella which is pansensitive. He has remained hemodynamically stable. Hemodynamically stable. Objective Data Objective Data Vital Signs: Vital Signs Temp Pulse Resp BP Pulse Ox O2 Del Method 98.4 F 72 18 155/73 H 97 Room Air 08/27/24 08:16 08/27/24 08:16 08/27/24 08:16 08/27/24 08:16 08/27/24 10:00 08/27/24 10:00 Oxygen Delivery Method Room Air Weight: 143 lb 4.807 oz Body Mass Index (BMI) 22.4 Intake & Output: Intake and Output for Last 24 Hours 08/25/24 08/26/24 08/27/24 23:59 23:59 23:59 Intake Total 2049 / 2049 3420.25 / 3420.25 236 / 236 Output Total 2500 / 3250 1250 / 1250 Balance 2050 / 1425 920.25 / 170.25 -1014 / -1014 Lab / Micro Data 08/27/24 06:30 08/27/24 06:30 Labs: Laboratory Results - last 24 hr 08/26/24 11:50: POC Glucose 132 H 08/26/24 17:23: POC Glucose 191 H 08/26/24 22:50: POC Glucose 168 H 08/27/24 06:30: WBC 5.0, RBC 3.53 L, Hgb 10.4 L, Hct 30.8 L, MCV 87.3, MCH 29.5, MCHC 33.8, RDW Std Deviation 44.5 H, RDW Coeff of Maia 14.0, Plt Count 196, MPV 9.6, Immature Gran % (Auto) 0.400, Neut % (Auto) 66.6, Lymph % (Auto) 16.6 L, M simin % (Auto) 12.8 H, Eos % (Auto) 3.2, Baso % (Auto) 0.4, Absolute Neuts (auto) 3.3, Absolute Lymphs (auto) 0.83, Nucleated RBC % 0, Sodium 138, Potassium 3.4 L , Chloride 103, Carbon Dioxide 28.0, Anion Gap 7, BUN 11, Creatinine 0.68 L, Estim Creat Clear Calc 83.51, Est GFR (MDRD) Af Amer 149, Est GFR (MDRD) Non-Af 123, BUN/Creatinine Ratio 16.1, Glucose 108 H, Calcium 8.8 08/27/24 06:45: POC Glucose 101 Micro: Microbiology 08/25/24 16:47 Urine Catheter - Catheter Urine Culture - Final Klebsiella pneumoniae sp pneum 08/25/24 16:47 Mucosa - Nose SARS-CoV-2, Influenza & RSV (PCR) - Final Physical Exam Const alert, oriented x3, no apparent distress, average body habitus and well nourished; Negative for healthy appearing General Appearance: cooperative HEENT normocephalic, head/scalp atraumatic and moist oral mucous membranes Eyes PERRL, EOMs intact bilaterally and conjunctivae normal Neck no lymphadenopathy and supple Neck Narrative: Trachea midline, no thyroid enlargement Lymph Lymphatic: no lymphadenopathy noted Resp normal respiratory effort, normal air movement, no retractions, no use of accessory muscles and clear to auscultation bilaterally Resp Narrative: on room air. Cardio regular rate, regular rhythm, S1 normal heart sound, S2 normal heart sound, no murmurs, no gallops and no clicks GI normal to inspection, nondistended, normoactive bowel sounds, soft to palpation, non-tender and non-distended GI Narrative: has colostomy bag in place, containing formed stool. Suprapubic catheter in situ Extremity normal capillary refill, no clubbing, cyanosis or edema and no calf tenderness Extremity Narrative: 2+ pedal and radial pulses, significantly decreased lean muscle mass General Extremity: no tenderness to palpation of joints or extremities Skin no jaundice, no petechiae and no mottling Skin Narrative: colostomy bag in place General Skin Exam: no breakdown Neuro CN's II-XII intact bilaterally, moves all extremities, no focal motor deficits and no sensory deficits noted Neuro Narrative: Generalized weakness noted but no focal deficits Sensorium / Orientation: awake, oriented to person and oriented to place Speech: speech normal Motor Exam: strength 5/5 throughout and general weakness Psych thought process normal, cooperative and affect normal Appearance: appropriate Assessment & Plan Assessment/Plan (1) Complicated urinary tract infection: (2) Elevated lactic acid level: PLAN: Plan #UTI * patient has a history of complicated UTI. * previous cultures have grown MDR E coli, Acinetobacter and VRE * on IV meropenem * ID on board. * urology consulted to help with mackenzie catheter exchange. * Urine cultures growing pansensitive Klebsiella. Antibiotics narrowed down to IV ceftriaxone today. * * #Lactic acidosis: resolved #Hypokalemia: K is still 3.4 today. Will replace and trend. #Hypomagnesemia: Will replace and trend #Acute encephalopathy: * improved. Feels much better. Will monitor. * #Type 2 diabetes mellitus with neuropathy: * on lantus. ISS. * Accuchecks ACHS * #CAD s/p CABG: on aspirin, statin, plavix and carvedilol #History of colon cancer: s/p colectomy and recent ostomy revision in November 2023. #HIstory of urinary retention * This occurred after he had the ostomy revision and now has a suprapubic catheter in situ. On Flomax * Urology consulted to change suprapubic catheter. However suprapubic catheter sutured in place so urology recommended following up with his urologist at [facility] on outpatient basis for it to be changed. #Depression and anxiety: On duloxetine DVT prophylaxis: Lovenox Disposition: for likely DC home tomorrow Charges/Coding Visit Charges Inpatient E&M: 93404 Subs Hosp L2
[2024-08-27] MEDS: Potassium Chloride Oral Tablet 20 MEQ 40 MEQ PO (11:42)
[2024-08-27 11:56] LABS: Bedside Glucose 116 mg/dL (74-106)
[2024-08-27 14:17] VITALS: BP 156/73; PULSE 81; RESP 18; TEMP 37.1; O2SAT 94
--- NOTE | 2024-08-27 16:07 | CHAPLAIN ---
Type of Pastoral Visit _x__ Initial Visit ___ Follow-up Visit ___ On-call Visit ___ General Patient Visit ___ Spiritual Assessment ___ Family Conference ___ Bereavement ___ Rapid Response ___ Code Blue ___ Other (describe below) Pastoral Care Referral From _x__ Patient ___ Family ___ Nurse ___ Physician ___ Power Originator ___ Lease Examiner ___ Other (describe below) Sacrament/Intervention _x__ Active listening ___ Anointing ___ Alevism ___ Bereavement ___ Communion ___ Angelika exploration ___ _x__ Life review _x__ Prayer ___ Reconciliation ___ Sacrament of Sick ___ Supportive presence ___ Wedding ___ Other (describe below) Pastoral Comments patient and two family members are in the room; all are welcoming; pt is talkative and explains his situation; pt welcomes time to express himself and to receive prayer support; interaction with family members too
[2024-08-27] MEDS: Insulin Lispro 100 UNIT/ML INSULN.PEN SC (16:45)
[2024-08-27 17:24] VITALS: BMI 22.4
[2024-08-27 18:24] LABS: Bedside Glucose 183 mg/dL (74-106)
[2024-08-27 22:37] VITALS: BP 158/71; PULSE 84; RESP 18; TEMP 37.2; O2SAT 94
[2024-08-27] MEDS: MELATONIN 3 MG TABLET PO (22:42)
[2024-08-27] MEDS: Atorvastatin Calcium 20 MG Tablet PO (22:42)
[2024-08-27] MEDS: Tamsulosin HCl 0.4 MG Capsule 0.8 MG PO (22:45)
[2024-08-27 23:09] LABS: Bedside Glucose 242 mg/dL (74-106)
[2024-08-28 03:44] VITALS: BP 149/74; PULSE 72; RESP 18; TEMP 36.6; O2SAT 96
[2024-08-28 05:59] VITALS: BMI 22.8
[2024-08-28 06:17] LABS: Absolute Lymphocyte Count 0.89 X10^3/uL (0.83-4.51); Absolute Neutrophil Count 3.3 X10^3/uL (2.0-7.7); Basophil# 0.01 X10^3/uL; Basophil% 0.2 % (0-1); Eosinophil# 0.17 X10^3/uL; Eosinophils% 3.4 % (0-5); Hematocrit 33.5 % (40-54); Lymphocyte # 0.89 X10^3/ul (0.83-4.51); Lymphocyte % 17.6 % (19-41); Mean Corp Hgb Conc 32.8 g/dL (32-36); Mean Corpuscular Hgb 28.7 pg (27.0-32.0); Mean Corpuscular Volume 87.5 fL (80-94); Mean Platelet Vol. 9.4 fl (6.2-12.0); Monocyte# 0.71 X10^3/uL; NRBC Flagged by Analyzer 0 % (0-5); Neutrophil # 3.25 X10^3/uL (2.7-7.7); Neutrophil % 64.2 % (47-70); Platelet Count 211 K/mm3 (150-450); RBC Distribution Width CV 13.9 % (11.6-14.6); RBC Distribution Width SD 44.2 fl (35.1-43.9); Red Blood Count 3.83 M/mm3 (4.6-6.2); White Blood Count 5.1 K/mm3 (4.4-11.0)
[2024-08-28 06:56] LABS: Anion Gap 7 (5-15); BUN 12 mg/dL (7-18); BUN/Creat Ratio 16.4 RATIO (10-20); Calcium,Total 8.9 mg/dL (8.5-10.1); Chloride 104 mmol/L (98-107); Creatinine, Serum 0.73 mg/dL (0.70-1.30); EST Glomerular Filtration Rate 114 mL/min (>60); Est Glom Filt Rate - Afr Amer 138 mL/min (>60); Estimated Creatinine Clearance 84.79 ml/min; Glucose 55 mg/dL (74-106); Potassium 3.6 mmol/L (3.5-5.1); Sodium Level 140 mmol/L (136-145)
--- NOTE | 2024-08-28 08:37 | WOUNDNOTE ---
Ostomy appliance was changed by this nurse on 08/27/24.
[2024-08-28 10:27] VITALS: BP 160/66; PULSE 74; RESP 16; TEMP 36.6; O2SAT 95
[2024-08-28] MEDS: amLODIPine 10 MG Tablet PO (10:31)
[2024-08-28] MEDS: Carvedilol 6.25 MG Tablet PO ×2 (10:31→17:07)
[2024-08-28] MEDS: Calcium Carbonate 500 MG Tablet PO ×3 (10:31→17:07)
[2024-08-28] MEDS: Gabapentin 300 MG Capsule PO (10:31)
[2024-08-28] MEDS: DULoxetine Hcl 30 MG Capsule PO (10:31)
[2024-08-28] MEDS: Aspirin 81 MG TAB.CHEW PO (10:31)
[2024-08-28] MEDS: Ceftriaxone 1 GM/50 ML BAG IV (10:32)
[2024-08-28] MEDS: Clopidogrel Bisulfate 75 MG Tablet PO (10:32)
[2024-08-28] MEDS: Enoxaparin 40 MG/0.4 ML Syringe SC (10:32)
[2024-08-28] MEDS: Insulin Glargine-YFGN 100 UNIT/ML Pen 50 UNIT SC (10:33)
[2024-08-28] MEDS: Potassium Chloride Oral Tablet 20 MEQ PO (10:33)
[2024-08-28 11:02] LABS: Bedside Glucose 94 mg/dL (74-106)
--- NOTE | 2024-08-28 14:03 | PCM.DC.SUM ---
Providers Date of Admission: 08/25/24 Date of Discharge: 08/28/24 Primary Care Physician: Dr. Kendy Modi MD Consultations 08/25/24 21:58 Consult: Infectious Disease Routine Consulting Provider: Chris Collins Reason for Consult: complicated uti with h/o MDRO EMERGENT Consult: No Notified: Yes Date Notified: 08/26/24 Time Notified: 06:46 Method of Notification: Text 08/26/24 00:15 Consult: Urology Routine Consulting Provider: Armando Ritchie Reason for Consult: Suprapubic catheter exchange EMERGENT Consult: No Notified: Yes Date Notified: 08/26/24 Time Notified: 09:00 Method of Notification: Answering Service 08/26/24 01:41 Consult: Onc/Wound/remote broadcast engineer Routine Comment: Reason For Visit: COMPLICATED UTI Diagnosis Discharge Diagnosis (1) Complicated urinary tract infection: Status: Acute Code(s): N39.0 - Urinary tract infection, site not specified (2) Elevated lactic acid level: Status: Acute Code(s): R79.89 - Other specified abnormal findings of blood chemistry Plan #UTI patient has a history of complicated UTI. previous cultures have grown MDR E coli, Acinetobacter and VRE on IV meropenem ID on board. urology consulted to help with mackenzie catheter exchange. Urine cultures growing pansensitive Klebsiella. Antibiotics narrowed down to IV ceftriaxone today. #Lactic acidosis: resolved #Hypokalemia: K is still 3.4 today. Will replace and trend. #Hypomagnesemia: Will replace and trend #Acute encephalopathy: improved. Feels much better. Will monitor. #Type 2 diabetes mellitus with neuropathy: on lantus. ISS. Accuchecks ACHS #CAD s/p CABG: on aspirin, statin, plavix and carvedilol #History of colon cancer: s/p colectomy and recent ostomy revision in November 2023. #HIstory of urinary retention This occurred after he had the ostomy revision and now has a suprapubic catheter in situ. On Flomax Urology consulted to change suprapubic catheter. However suprapubic catheter sutured in place so urology recommended following up with his urologist at [facility] on outpatient basis for it to be changed. #Depression and anxiety: On duloxetine DVT prophylaxis: Lovenox Disposition: for likely DC home tomorrow Medications at Discharge Home Medications aspirin 81 mg chewable tablet 81 mg PO DAILY heart health 03/20/16 insulin lispro 100 unit/mL subcutaneous pen (Humalog KwikPen (U-100) Insulin) 1 sliding scale dose subcut TIDCM diabetes 09/26/21 duloxetine 60 mg capsule,delayed release 30 mg (1/2 x 60 mg) PO DAILY depression #30 caps 03/12/23 clopidogrel 75 mg tablet 75 mg PO DAILY blood thinner #90 tabs 10/10/23 pantoprazole 40 mg tablet,delayed release 40 mg PO DAILY GERD 12/01/23 sodium chloride 0.9 % 100 ea IV .continuous fluid imbalance 12/02/23 amlodipine 10 mg tablet 10 mg PO DAILY BLOOD PRESSURE 01/31/24 calcium carbonate (Tums) 300 mg PO TID PRN dyspepsia 01/31/24 melatonin 3 mg tablet 3 mg PO QHS 01/31/24 simethicone 125 mg chewable tablet 125 mg PO 4X/DAY PRN abdominal distention 01/31/24 sodium chloride 0.65 % nasal spray aerosol (Thayer Saline) 2 spray intranasal Q4H PRN dry nasal passages 01/31/24 tamsulosin 0.4 mg capsule (Flomax) 0.8 mg PO QHS 01/31/24 carvedilol 6.25 mg tablet 6.25 mg PO BID #0 tabs 02/09/24 mirtazapine 15 mg tablet 15 mg PO QHS #0 tabs 02/09/24 acetaminophen 325 mg capsule 650 mg PO Q6H PRN pain 05/21/24 atorvastatin 20 mg tablet 20 mg PO QDAY 05/21/24 insulin glargine-yfgn 100 unit/mL (3 mL) subcutaneous pen (Semglee (insulin glargine-yfgn) Pen) 50 unit subcut BID 05/21/24 gabapentin 300 mg capsule 300 mg PO DAILY 08/25/24 metformin 500 mg tablet,extended release 24 hr 500 mg PO BID 08/25/24 potassium chloride 20 mEq tablet,extended release(part/cryst) (Klor-Con M) 20 meq PO DAILY 08/25/24 amoxicillin 875 mg-potassium clavulanate 125 mg tablet 1 tab PO BID #6 tabs 08/27/24 Hospital Course Operations None Procedures None Summary of Care Provided Minutes Spent on Discharge: 55 Hospital Course: Patient is a 68-year-old male with a past medical history as outlined who was admitted to the ED on 08/25/2024 with a complaint of headache, fever and weakness. He had a stat headache and more confused than usual so his brought him into the ED. He had a history of colorectal cancer with previous colectomy with colostomy and not had a revision of his colostomy in November 2023 with subsequent urinary retention for which she ended up having his suprapubic catheter inserted as he was having problems with the Mackenzie catheter that was inserted. The suprapubic catheter had been placed about a month prior to this admission and he had struggled with previous urine infections when he had a Mackenzie catheter in situ. He was started on IV meropenem based on previous cultures which had grown multiple resistant organisms. ID was consulted. CT of the abdomen and pelvis showed no acute pathology. Urology was consulted to change the suprapubic catheter. Urology reviewed him and since the suprapubic catheter was sutured in place, urology recommended that he follow-up with his primary urologist who inserted a suprapubic catheter admitted in the hospital. Patient was agreeable to this. Urine cultures grew pansensitive Klebsiella. He was therefore discharged him on 08/28/2024 on p.o. Augmentin for 3-day course per ID. Of note ID had been consulted during this admission. He is to follow-up with his primary care doctor within 1 to 2 weeks. Patient seen and examined prior to discharge. He had no active complaints. Review of systems otherwise negative. Labs and vitals reviewed. Home medication reviewed and reconciled. Physical Exam Const alert, oriented x3, no apparent distress, average body habitus and well nourished; Negative for healthy appearing Constitutional Narrative: General Appearance: cooperative and comfortable Orientation / Consciousness: awake Exam Limitations: no limitations HEENT normocephalic, head/scalp atraumatic, hearing grossly normal bilaterally, moist oral mucous membranes and oropharynx normal Mouth: oral and palatal mucosa normal Eyes PERRL, EOMs intact bilaterally and conjunctivae normal Eyes Narrative: No scleral icterus Neck no lymphadenopathy and supple Lymph Lymphatic: no lymphadenopathy noted Resp normal respiratory effort, normal air movement, no retractions, no use of accessory muscles and clear to auscultation bilaterally Resp Narrative: on room air. Auscultation: Negative for rales, rhonchi or wheezes Cardio regular rate, regular rhythm, S1 normal heart sound, S2 normal heart sound, no murmurs, no gallops and no clicks GI normal to inspection, nondistended, normoactive bowel sounds, soft to palpation, non-tender and non-distended GI Narrative: has colostomy bag in place, containing formed stool. Suprapubic catheter in situ Extremity normal to inspection, full ROM, normal capillary refill, no clubbing, cyanosis or edema and no calf tenderness General Extremity: no tenderness to palpation of joints or extremities Skin No skin turgor normal, no jaundice, no petechiae and no mottling Skin Narrative: colostomy bag in place General Skin Exam: no breakdown Neuro oriented x3, CN's II-XII intact bilaterally, moves all extremities, no focal motor deficits and no sensory deficits noted Neuro Narrative: Generalized weakness noted but no focal deficits Sensorium / Orientation: awake, oriented to person and oriented to place Speech: speech normal Motor Exam: strength 5/5 throughout and general weakness Psych thought process normal, cooperative and affect normal Appearance: appropriate Weight / BMI Weight Weight: 145 lb 8.081 oz Body Mass Index (BMI) 22.8 ABG / Lab / Microbiology Data 08/28/24 05:48 08/28/24 05:48 Laboratory: Laboratory Results - last 24 hr 08/27/24 16:36: POC Glucose 183 H 08/27/24 22:41: POC Glucose 242 H 08/28/24 05:48: WBC 5.1, RBC 3.83 L, Hgb 11.0 L, Hct 33.5 L, MCV 87.5, MCH 28.7, MCHC 32.8, RDW Std Deviation 44.2 H, RDW Coeff of Maia 13.9, Plt Count 211, MPV 9.4, Immature Gran % (Auto) 0.600, Neut % (Auto) 64.2, Lymph % (Auto) 17.6 L, [place] % (Auto) 14.0 H, Eos % (Auto) 3.4, Baso % (Auto) 0.2, Absolute Neuts (auto) 3.3, Absolute Lymphs (auto) 0.89, Nucleated RBC % 0, Sodium 140, Potassium 3.6, Chloride 104, Carbon Dioxide 30.0, Anion Gap 7, BUN 12, Creatinine 0.73, Estim Creat Clear Calc 84.79, Est GFR (MDRD) Af Amer 138, Est GFR (MDRD) Non-Af 114, BUN/Creatinine Ratio 16.4, Glucose 55 L, Calcium 8.9 08/28/24 10:08: POC Glucose 94 Microbiology: Microbiology 08/25/24 16:47 Blood Culture (Wb) #2 - Right Forearm Blood Culture - Preliminary No growth in 48 hours. 08/25/24 16:42 Blood Culture (Wb) - Anticubital Left Blood Culture - Preliminary No growth in 48 hours. 08/25/24 16:47 Urine Catheter - Catheter Urine Culture - Final Klebsiella pneumoniae sp pneum 08/25/24 16:47 Mucosa - Nose SARS-CoV-2, Influenza & RSV (PCR) - Final D/C Instructions Discharge Diet: Low fat / Low cholesterol Discharge Activity: Return to Normal Activity Weight Bearing Status: Weight bearing as tolerated Call your doctor if you observe: Fever of 101 or Higher and Shortness of breath DC O2, CPAP, BIPAP Needs Home O2 Discharge instructions: No DC home with Oxygen: No Meaningful Use Info Meaningful Use Meaningful Use Diagnoses (Choose all that apply): None applicable Ischemic Stroke Statin Dosing Therapy Reference: STATIN DOSE THERAPY REFERENCE: * Patients > 75 years receive moderate or high dose statin therapy. * Patients 75 years or YOUNGER should receive HIGH intensity statin dose unless contraindicated. You will be required to document reason for non-treatment if statin daily dose does not meet guidelines. HIGH DOSE STATIN THERAPY DAILY Atorvastatin > than or = to 40 mg Rosuvastatin > than or = to 20 mg Amlodipine + Atorvastatin > than or = to 2.5/40 mg Ezetimibe + Simvastatin 10/80 mg Simvastatin 80mg Discharge Plan Admission Admit Date/Time: 08/25/24 20:42 Primary Reason for Your Visit: UTI Attending Provider: Catherine Barton Primary Care Provider: Kendy Modi Consulting Providers: Chris Collins; Ling Ford; Armando Ritchie Instructions Patient Instructions: ED Urinary Tract Infections in Men Additional Instructions / Restrictions: follow up with urology within 1 week for suprapubic catheter to be changed. Discharge Orders/Prescriptions Prescriptions: New amoxicillin-pot clavulanate 875-125 mg tablet 1 tab PO BID Qty: 6 0RF Continued insulin glargine-yfgn [Semglee(insulin glarg-yfgn)Pen] 100 unit/mL (3 mL) insulin pen 50 unit subcut BID atorvastatin 20 mg tablet 20 mg PO QDAY aspirin 81 MG tablet,chewable 81 mg PO DAILY insulin lispro [Humalog KwikPen Insulin] 100 unit/mL insulin pen 1 sliding scale dose SC TIDCM Protocol: 6. Sliding Scale Insulin Custom Condition: mg/dl range Dose/Route: Number of Units Condition: 0-200 Dose/Route: 0 Condition: 201-250 Dose/Route: 2 Condition: 251-300 Dose/Route: 4 Condition: 301-350 Dose/Route: 6 Condition: 351-400 Dose/Route: 8 Condition: 401-450 Dose/Route: 10 Condition: 451-500 Dose/Route: 12 Condition: 500+ Dose/Route: 14 Condition: 501+ Dose/Route: CALL MD Protocol Text: INJECT 4 UNITS SUBCUTANEOUSLY ALONG WITH SLIDING SCALE THREE TIMES A DAY AT 0730, 1130, AND 1630 duloxetine 60 MG capsule,delayed release(DR/EC) 30 mg PO DAILY Qty: 30 1RF amlodipine 10 mg tablet 10 mg PO DAILY melatonin 3 mg tablet 3 mg PO QHS simethicone 125 mg tablet,chewable 125 mg PO 4X/DAY PRN (Reason: abdominal distention) tamsulosin [Flomax] 0.4 mg capsule 0.8 mg PO QHS Tums 300 mg (750 mg) tablet,chewable 300 mg PO TID PRN (Reason: dyspepsia) Thayer Saline 0.65 % aerosol,spray 2 spray intranasal Q4H PRN (Reason: dry nasal passages) Rx Instructions: while awake carvedilol 6.25 mg Tablet 6.25 mg PO BID Qty: 0 0RF mirtazapine 15 mg Tablet 15 mg PO QHS Qty: 0 0RF metformin 500 mg tablet extended release 24 hr 500 mg PO BID gabapentin 300 mg capsule 300 mg PO DAILY potassium chloride [Klor-Con M20] 20 mEq tablet,ER particles/crystals 20 meq PO DAILY pantoprazole 40 mg tablet,delayed release (DR/EC) 40 mg PO DAILY sodium chloride 0.9 % Parenteral Solution 100 ea IV .continuous acetaminophen 325 mg capsule 650 mg PO Q6H PRN (Reason: pain) clopidogrel 75 mg tablet 75 mg PO DAILY Qty: 90 3RF Discontinued amoxicillin 500 mg capsule 500 mg PO TID Referrals / Follow Up: Kendy Modi MD [Primary Care Provider] - 09/02/24 11:20 am Disposition Disposition (needs filled in before D/C Order can be placed): Home, Self Care Charges/Coding Visit Charges Inpatient E&M: 42213 Disch Hosp >30min
--- NOTE | 2024-08-28 14:35 | CASEMGMT ---
Patient has order for discharge. RASHI ARVIZU called [facility] to update of discharge. Patient is active with [facility] and they are able to add therapy, start of care is planned for Monday. RASHI ARVIZU in to discuss needs at discharge.Patient has been working with PT/OT/ST here at [facility]. RASHI ARVIZU discussed therapy at discharge with [facility], patient is agreeable to therapy at discharge. Patient denies further needs or concerns at discharge. RASHI ARVIZU updated discharge planning engineer to send discharge information to [facility]. RASHI ARVIZU updated discharge plan.
--- NOTE | 2024-08-28 14:52 | CASEMGMT ---
HH resumption referral sent to [facility]. Patsy Riley DC Planning Asst.
[2024-08-28] MEDS: Insulin Lispro 100 UNIT/ML INSULN.PEN SC (17:07)
[2024-08-28 17:27] LABS: Bedside Glucose 241 mg/dL (74-106)
== END 2024-08-28 18:04 | disposition home or self-care (01) | DRG 698 ==
LOC: ED 18:18 → PCU 21:08
PROVIDERS: Admitting Provider Internal Medicine; Emergency Provider Emergency Medicine; PCP Family Medicine; Visit Provider Student in an Organized Health Care Education/Training Program
DX: T83.518A Infection and inflammatory reaction due to other urinary catheter, initial encounter (principal); G92.8 Other toxic encephalopathy; E87.20 Acidosis, unspecified; N39.0 Urinary tract infection, site not specified; Z66 Do not resuscitate; E11.40 Type 2 diabetes mellitus with diabetic neuropathy, unspecified; I10 Essential (primary) hypertension; F32.A Depression, unspecified; Z93.3 Colostomy status; E11.51 Type 2 diabetes mellitus with diabetic peripheral angiopathy without gangrene; E78.00 Pure hypercholesterolemia, unspecified; K21.9 Gastro-esophageal reflux disease without esophagitis; Z79.4 Long term (current) use of insulin; I25.10 Atherosclerotic heart disease of native coronary artery without angina pectoris; E11.65 Type 2 diabetes mellitus with hyperglycemia; E87.6 Hypokalemia; E86.0 Dehydration; E83.42 Hypomagnesemia; F41.9 Anxiety disorder, unspecified; Y73.8 Miscellaneous gastroenterology and urology devices associated with adverse incidents, not elsewhere classified; B96.1 Klebsiella pneumoniae [K. pneumoniae] as the cause of diseases classified elsewhere; Z79.82 Long term (current) use of aspirin; Z79.84 Long term (current) use of oral hypoglycemic drugs; Z79.02 Long term (current) use of 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/antiplatelets; Z79.899 Other long term (current) drug therapy; Z90.49 Acquired absence of other specified parts of digestive tract; Z95.5 Presence of coronary angioplasty implant and graft; Z95.1 Presence of aortocoronary bypass graft
CPT/HCPCS: 36415; 70450; 71045; 74176; 80048; 80053; 81001; 82962; 83605; 83735; 84100; 85025; 85610; 85730; 87040; 87077; 87086; 87088; 87186; 87631; 92526; 92610; 97110; 97116; 97162; 97166; 97530; 97535; 97802; 99285; J2185; A4216

== ENCOUNTER 2024-10-10 01:24 | Inpatient (IN) | payer BC, MEDICARE, SELFPAY ==
[2024-10-10] VITALS (47 sets, daily range): BP systolic 75–149; BP diastolic 54–99; PULSE 82–120; RESP 11–26; TEMP 36.7–37.4; O2SAT 86–98; BMI 25.0; BMI 22.9; BMI 23.0
[2024-10-10] MEDS: Ondansetron 4 MG/2 ML Vial IV ×2 (01:49→02:22)
[2024-10-10] MEDS: Piperacil/Tazobactam 3.375 GM in 0.9% Normal Saline (50mL MB+) 50 ML IV ×3 (01:54→20:32)
[2024-10-10 01:56] LABS: Absolute Lymphocyte Count 0.61 X10^3/uL (0.83-4.51); Absolute Neutrophil Count 9.9 X10^3/uL (2.0-7.7); Basophil# 0.02 X10^3/uL; Basophil% 0.2 % (0-1); Eosinophil# 0.02 X10^3/uL; Eosinophils% 0.2 % (0-5); Hematocrit 37.4 % (40-54); Hemoglobin 12.4 g/dL (13.0-16.5); Lymphocyte # 0.61 X10^3/ul (0.83-4.51); Lymphocyte % 5.4 % (19-41); Mean Corp Hgb Conc 33.2 g/dL (32-36); Mean Corpuscular Hgb 29.2 pg (27.0-32.0); Monocyte# 0.75 X10^3/uL; Monocyte% 6.6 % (0-10); NRBC Flagged by Analyzer 0 % (0-5); Neutrophil % 87.2 % (47-70); Platelet Count 259 K/mm3 (150-450); RBC Distribution Width CV 14.5 % (11.6-14.6); RBC Distribution Width SD 46.3 fl (35.1-43.9); Red Blood Count 4.25 M/mm3 (4.6-6.2); White Blood Count 11.3 K/mm3 (4.4-11.0)
[2024-10-10 01:57] LABS: Blood Gas Specimen Type VEN; O2 Delivery Device Cannula; SITE Not entered; VBG BASE EXCESS 2 mmol/L (-1.0-3.5); VBG Bicarbonate 27 mmol/L (22-26); VBG PO2 18 mmHg (25-40); VBG SO2 25 % (50-70); VBG TCO2 28 mmol/L (23-33); VBG pCO2 44.8 mmHg (41-51); VBG pH 7.39 (7.32-7.42)
--- NOTE | 2024-10-10 02:00 | RAD_ITS ---
PROCEDURE: CHEST 1 VIEW (PORTABLE) REASON FOR EXAM: Dyspnea TECHNIQUE: Frontal view of the chest. COMPARISON: 08/25/2024 FINDINGS: There is now bilateral perihilar ill-defined opacities with a lower zone predominance and suggestion of possible subtle septal lines which may represent pulmonary edema within inflammatory or infectious process not excluded, clinically correlate. No focal consolidative change or evidence of pleural effusion identified. Changes of previous median sternotomy and remote fracture deformity proximal left humerus again noted. The cardiac silhouette appears within limits for size. Atherosclerotic changes at the aortic arch again noted. The patient is rotated to the right. RAD/Chest 1 View (Portable) IMPRESSION: There is now bilateral perihilar ill-defined opacities with a lower zone predom inance and suggestion of possible subtle septal lines which may represent pulmonary edema within inflammatory or infectious pro cess not excluded, clinically correlate. No focal consolidative change or evidence of pleural effusion identified.. Reading Location: [id number]
--- NOTE | 2024-10-10 02:05 | CT_ITS ---
PROCEDURE: CTA CHEST W/WO CONTRAST REASON FOR EXAM: Hypoxia TECHNIQUE: CTA of the chest with contrast with coronal and sagittal reformatted images and MIP images COMPARISON: None. FINDINGS: Motion artifact limits the evaluation. No evidence of filling defect to suggest pulmonary embolism. No large central or hilar saddle embolism. Status post median sternotomy. Ectatic thoracic aorta appears within limits. Status post CABG. No pericardial effusion. Small right larger than left bilateral posterior layering pleural effusions with adjacent partial passive collapse of the adjacent right and left lower lobes. The central airways appear patent. Bilateral patchy perihilar opacities with septal thickening may represent pulmonary edema, clinically correlate. A few subpleural bilateral micro nodularity may represent changes of interstitial edema, attention on follow-up. Reflux of contrast into the inferior vena cava and hepatic veins can be seen with degree of right heart dysfunction, nonspecific. Status post right carotid stent graft with atherosclerotic soft and calcific plaque in the left carotid. Visualized segments of the right vertebral artery without contrast identified. May correlate with previous workup. Remote fracture deformity proximal left humerus. CT/CTA Chest W/WO Contrast IMPRESSION: Motion artifact limits the evaluation. No evidence of filling defect to sugges t pulmonary embolism. No large central or hilar saddle embolism. Overall findings are most suggestive of pulmonary edema, possible congestive he art failure, clinically correlate with small bilateral pleural effusions and adjacent areas of passive partial appearing col lapse of the adjacent lower lobes. Can not entirely exclude a developing infectious process, clinically correlate. One or more dose reduction techniques were used (e.g., Automated exposure contr ol, adjustment of the mA and/or kV according to patient size, use of iterative reconstruction technique). Reading Location: [id number]
--- NOTE | 2024-10-10 02:10 | CT_ITS ---
PROCEDURE: ABDOMEN/PELVIS W IV CONT ONLY REASON FOR EXAM: Abdomen pain, question suprapubic abscess TECHNIQUE: Abdomen and pelvis CT with intravenous contrast. Coronal and sagittal reformatted images IV CONTRAST: COMPARISON: None. FINDINGS: Lung bases: See same day chest CTA for further details Liver: Suggestion of mild hepatic steatosis.. Gallbladder: A couple of small calcified stones again noted within a nondistended, noninflamed appearing gallbladder. Spleen: Unremarkable. Pancreas: A few scattered small punctate pancreatic calcifications may represent sequela of chronic pancreatitis. Adrenals: Unremarkable. Kidneys: Renovascular calcifications with bilateral symmetric nephrograms without hydronephrosis Bladder: Suprapubic catheter within a collapsed bladder. Focal soft tissue stranding and edema near the skin surface axial 111 and coronal 49 without focal fluid collection or air-fluid level. No subcutaneous soft tissue gas.. Reproductive Organs: Unremarkable. Bowel: No bowel dilation, free air or free fluid. Bilateral lower ventral abdominal wall ostomy is again noted. Small parastomal hernia, redundancy of bowel in the subcutaneous soft tissues again noted, unchanged.. Appendix: Not identified. Lymph nodes: No suspicious lymph node enlargement. Vasculature: Atherosclerotic calcifications. Apparent stent at the origin of the SMA with contrast seen beyond. Heavy ostial calcification celiac trunk with focal high-grade narrowing suggested of the proximal splenic artery coronal 54 with contrast seen beyond. Heavy calcification of the splenic artery. Heavy appearing aortoiliac and femoral atherosclerotic calcification. No abdominal aortic aneurysm.. Peritoneum / Retroperitoneum: No ascites. No free air. Bones: Unremarkable. Nonacute, incidental findings as above. CT/Abdomen/Pelvis W IV Cont ONLY IMPRESSION: No evidence of acute intra-abdominal process. Suprapubic catheter in place within a collapsed bladder as above. No associate d abscess or soft tissue gas identified. Bilateral ventral ostomies as above. No obstructive process, free air or free fluid. One or more dose reduction techniques were used (e.g., Automated exposure contr ol, adjustment of the mA and/or kV according to patient size, use of iterative reconstruction technique). Reading Location: [facility]
[2024-10-10] MEDS: Nitroglycerin Oint 1 INCH PACKET TD (02:17)
--- NOTE | 2024-10-10 02:24 | EX.ED.DYSGE1 ---
HPI History of Present Illness Chief Complaint: Confusion Informant: patient and spouse/S.O. Narrative Narrative: Patient is a 68-year-old male with a past medical history of coronary artery disease status post bypass in 2007 as well as stent placement in 2018. He has a history of hypertension hyperlipidemia and type 2 diabetes. He also has an ostomy and chronic indwelling suprapubic catheter. He was admitted in August 2024 secondary to complicated UTI from the suprapubic catheter. reported that time that he had low-grade fever and altered mental status. Patient and report that today over the last 12 hours he has had fatigue with muscle aches and headache and also reports intermittent confusion. She states she has concern that he is developing a repeat UTI and secondary to this brought him in for evaluation [facility] Medical History Ileostomy present Colostomy in place Orthostatic hypotension Essential hypertension Loss of hearing Wears glasses Cancer Depression Insulin dependent diabetes mellitus Walker as ambulation aid Arthritis High cholesterol Restless legs Injury of back Injury of head and neck Syncope Dietary restriction Gastric reflux Non-smoker CPAP (continuous positive airway pressure) dependence Shortness of breath on exertion Leg cramps History of pain when walking History of echocardiogram History of stress test Cardiology follow-up encounter History of heart attack Colorectal cancer Dysphagia invasive rectal adenocarcinoma Diabetic neuropathy Restrictive lung disease Type 2 diabetes mellitus Anxiety disorder GERD (gastroesophageal reflux disease) Carotid artery disease Obstructive sleep apnea 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 Peripheral vascular occlusive disease CVA (cerebral vascular accident) ALEJANDRO (obstructive sleep apnea) Dyslipidemia HTN (hypertension) Home Medications ?Medication ?Instructions ?Recorded ?Last Taken ?Type aspirin 81 mg chewable tablet 81 mg PO DAILY heart health 03/20/16 03/10/23 History insulin lispro 100 unit/mL 1 sliding scale dose subcut TIDCM 09/26/21 03/10/23 History subcutaneous pen (Humalog KwikPen diabetes (U-100) Insulin) duloxetine 60 mg capsule,delayed 30 mg (1/2 x 60 mg) PO DAILY 03/12/23 03/10/23 Rx release depression #30 caps clopidogrel 75 mg tablet 75 mg PO DAILY blood thinner #90 10/10/23 Unknown Rx tabs pantoprazole 40 mg tablet,delayed 40 mg PO DAILY GERD 12/01/23 Unknown History release sodium chloride 0.9 % 100 ea IV .continuous fluid 12/02/23 Unknown History imbalance amlodipine 10 mg tablet 10 mg PO DAILY BLOOD PRESSURE 01/31/24 Unknown History calcium carbonate (Tums) 300 mg PO TID PRN dyspepsia 01/31/24 Unknown History melatonin 3 mg tablet 3 mg PO QHS 01/31/24 Unknown History simethicone 125 mg chewable tablet 125 mg PO 4X/DAY PRN abdominal 01/31/24 Unknown History distention sodium chloride 0.65 % nasal spray 2 spray intranasal Q4H PRN dry 01/31/24 Unknown History aerosol ([place] Saline) nasal passages tamsulosin 0.4 mg capsule (Flomax) 0.8 mg PO QHS 01/31/24 Unknown History carvedilol 6.25 mg tablet 6.25 mg PO BID #0 tabs 02/09/24 Unknown Rx acetaminophen 325 mg capsule 650 mg PO Q6H PRN pain 05/21/24 Unknown History atorvastatin 20 mg tablet 20 mg PO QDAY 05/21/24 Unknown History insulin glargine-yfgn 100 unit/mL 50 unit subcut BID 05/21/24 Unknown History (3 mL) subcutaneous pen (Semglee (insulin glargine-yfgn) Pen) gabapentin 300 mg capsule 300 mg PO DAILY 08/25/24 Unknown History metformin 500 mg tablet,extended 500 mg PO BID 08/25/24 Unknown History release 24 hr potassium chloride 20 mEq 20 meq PO DAILY 08/25/24 Unknown History tablet,extended release(part/cryst) (Klor-Con M) Allergy/AdvReac Type Severity Reaction Status Date / Time No Known Allergies Allergy Verified 10/10/24 01:30 Family History Father CAD (coronary artery disease) Hypertension Cancer leukemia Diabetes Heart disease High cholesterol Mother CVA (cerebral vascular accident) Diabetes Breast cancer Brother Diabetes Surgical History History of bilateral cataract extraction History of left heart catheterization (LHC) (~01/22/15) History of right and left heart catheterization (LHC) (~12/25/14) History of eye surgery PTCA Left Anterior Tibial and Paroneal Artery History of coronary artery stent placement (01/02/15) H/O coronary artery bypass surgery (05/30/08) History of right-sided carotid endarterectomy Excision Max.Zygoma Face Tumor History of tonsillectomy History of herniorrhaphy Social History (Updated 10/10/24 @ 03:[address] Kendra Yuan MD) household members: spouse Smoking Status: Never smoker alcohol intake: never substance use type: does not use caffeine: Yes what type of physical activity do you participate in: none ROS ROS ED Constitutional Constitutional ED: Denies chills or fever(s) Eyes Eyes: Denies change in vision ENT ENT ED: Denies rhinorrhea or sore throat Cardiovascular Cardiovascular: Denies chest pain, palpitations or racing heartbeat Respiratory/Chest Respiratory/Chest: Reports dyspnea; Denies cough Gastrointestinal Gastrointestinal: Reports nausea and vomiting; Denies abdominal pain or diarrhea Musculoskeletal Musculoskeletal: Reports myalgias Integumentary Denies rash Neurologic Neurologic: Reports headache(s) and weakness Hematologic/Lymphatic Hematologic/Lymphatic: Reports easy bleeding and easy bruising EXAM Physical Exam Const Vital Signs: 10/10/24 01:25 10/10/24 01:29 10/10/24 01:38 Temperature 98.6 F Temperature Source Oral Pulse Rate 100 Respiratory Rate 19 H Blood Pressure 149/91 H Blood Pressure Mean 110 Pulse Ox 86 92 88 Oxygen Delivery Method Room Air Nasal Cannula Nasal Cannula Oxygen Flow Rate (L/min) 3 3 Fraction of Inspired Oxygen (FIO2) 10/10/24 01:38 10/10/24 01:42 10/10/24 01:44 Temperature Temperature Source Pulse Rate Respiratory Rate Blood Pressure Blood Pressure Mean Pulse Ox 88 90 88 Oxygen Delivery Method Nasal Cannula Nasal Cannula Nasal Cannula Oxygen Flow Rate (L/min) 4 4 4 Fraction of Inspired Oxygen (FIO2) 10/10/24 01:50 10/10/24 01:54 10/10/24 02:15 Temperature Temperature Source Pulse Rate 104 H Respiratory Rate 24 H Blood Pressure Blood Pressure Mean Pulse Ox 88 92 92 Oxygen Delivery Method Nasal Cannula High Flow Oxygen Flow Rate (L/min) 6 7 Fraction of Inspired Oxygen (FIO2) 60 10/10/24 02:17 10/10/24 02:29 10/10/24 02:34 Temperature 98.1 F Temperature Source Oral Pulse Rate 102 H 105 H 104 H Respiratory Rate 16 20 H Blood Pressure 147/60 H 139/89 H Blood Pressure Mean 105 Pulse Ox 91 Oxygen Delivery Method Airvo Oxygen Flow Rate (L/min) 50 Fraction of Inspired Oxygen (FIO2) 75 75 10/10/24 03:00 10/10/24 03:24 10/10/24 03:48 Temperature 98.5 F Temperature Source Oral Pulse Rate 107 H 118 H 120 H Respiratory Rate 22 H 11 L 21 H Blood Pressure 102/64 Blood Pressure Mean 76 Pulse Ox 92 95 96 Oxygen Delivery Method Airvo Oxygen Flow Rate (L/min) 55 Fraction of Inspired Oxygen (FIO2) 85 85 75 Positive well nourished and well developed General Appearance ED: well developed HEENT HEENT Narrative: No tongue or lip swelling no oral lesions no airway edema or compromise There is mild cobblestoning in the posterior pharynx consistent with sinus drainage without secondary findings to suggest infection Eyes PERRL and EOMs intact bilaterally General Eye ED: Negative for scleral icterus Neck supple and no JVD Neck Narrative: No nuchal rigidity or meningeal signs noted Chest Wall palpation of chest normal Chest Narrative: No bony deformity or crepitance Resp Resp Narrative: Patient is tachypneic and breath sounds are diminished throughout with rhonchi noted in the bilateral lower lobes right greater than left Cardio regular rhythm Rate: tachycardic and other Other Details: Tachycardic rate with regular rhythm Radial and carotid pulses are equal and symmetric GI non-tender, non-distended and no masses GI Narrative: Abdomen is soft nontender and nondistended with hyperactive bowel sounds Patient has an ostomy in place in the right lower abdomen that is draining brown stool No pulsatile mass No rigidity or peritoneal signs Auscultation: hyperactive bowel sounds Palpation: soft Narrative: Suprapubic catheter is in place. At the insertion site into the skin there is surrounding erythema with mild purulent discharge and there is extension of the erythema into the base of the penis. However there is no obvious abscess formation palpated no lymphangitic streaking or crepitance No obvious overlying soft tissue changes to suggest Naa's gangrene. Extremity normal to inspection Extremity Narrative: No asymmetric edema no pitting edema negative Homans' sign bilaterally Neuro CN's II-XII intact bilaterally Neuro Narrative: Patient is awake and alert to person and place but disoriented to time Per this is not his baseline mental status Otherwise he does not have any focal neurologic deficit other than the mild disorientation for which he received NIH stroke scale score of 1. Sensorium / Orientation: alert Psych Psych Narrative: Patient has a depressed/flat affect Mood & Affect: depressed Skin Skin Narrative: Patient has excoriation along the lower abdomen consistent with skin breakdown from colostomy There is also the soft tissue changes along the insertion of the suprapubic catheter and base of the penis as documented above Patient has superficial abrasion to the left anterior knee without secondary findings to suggest overlying cellulitis abscess or septic joint. MDM MDM MDM Narrative Medical decision making narrative: Patient presented to the ER afebrile and was hypertensive and tachycardic as well as hypoxic with a room air pulse ox in the mid 80s. He reportedly wears CPAP at night secondary to ALEJANDRO but does not have any need for supplemental oxygen at baseline. With patient and reporting fatigue myalgias headache and now intermittent confusion there is high likelihood for an infectious process causing his symptoms such as influenza COVID or RSV versus pneumonia versus atypical UTI. As his only finding no confusion on initial evaluation his disorientation to time I do not feel that there is need to activate a stroke alert or perform a CTA of his head. However because hypoxia could be due to pneumonia versus pulmonary embolus versus congestive heart failure I did elect to initially start with a chest x-ray which showed changes concerning for infection versus vascular congestion. A CTA was then obtained which revealed no sign of PE or dissection but changes consistent with infiltrate and pleural effusion. As patient has a known history of CAD and is hypoxic this could be atypical presentation for ACS so an EKG was ordered upon arrival as well. This showed diffuse ST segment depression and T wave inversion which is markedly different from EKG from January 2024. However the patient is not complaining of chest pain. The EKG was sent to the electrotyper helper Dr. Smith who reviewed the EKGs and agrees this is not a STEMI but most likely demand ischemia from whatever is causing his hypoxia. However because he has a known history of CAD he does recommend nitro aspirin Plavix and heparin if the troponin is elevated. The patient's initial troponin was up at 405 and therefore a heparin bolus and drip were ordered. As he does have soft tissue changes to the lower abdomen and suprapubic region with concern for potential abscess CT of the abdomen and pelvis was obtained on top the CT of the chest and a urine sample was also obtained based on his history of recent admission in August of this year for complicated UTI. The patient had an echocardiogram in May 2024 which showed normal ejection fraction and no signs of congestive heart failure so therefore with exam and workup indicating this is most likely infectious in nature he was started on 30 mL/kg fluid bolus for septic protocol and vancomycin and Zosyn were started as well. However the patient's proBNP came back elevated at about 2000 and his CTA revealed changes more consistent with pleural effusion and volume overload and therefore after discussion with the hospitalist it was felt that the sepsis fluid resuscitation was causing more harm at this point and the fluid was stopped under 1 L. He was given a dose of 40 mg IV Lasix secondary to the pleural effusion and volume overload and placed on BiPAP as well. Following this he was placed in the ICU for continued monitoring of his UTI with sepsis and non-STEMI History & Record Review Discussion w/independent historian: Patient and Significant other Lab Data Attestation: I reviewed the patient's lab results. Labs: Laboratory Results - last 24 hr 10/10/24 10/10/24 01:37 03:18 WBC 11.3 H RBC 4.25 L Hgb 12.4 L Hct 37.4 L MCV 88.0 MCH 29.2 MCHC 33.2 RDW Std Deviation 46.3 H RDW Coeff of Maia 14.5 Plt Count 259 MPV 10.0 Immature Gran % (Auto) 0.400 Neut % (Auto) 87.2 H Lymph % (Auto) 5.4 L Wilson % (Auto) 6.6 Eos % (Auto) 0.2 Baso % (Auto) 0.2 Absolute Neuts (auto) 9.9 H Absolute Lymphs (auto) 0.61 L Nucleated RBC % 0 PT 14.0 INR 1.1 APTT 58.1 H Sodium 141 Potassium 4.3 Chloride 100 Carbon Dioxide 22.3 Anion Gap 18 H BUN 26 H Creatinine 1.39 H Estim Creat Clear Calc 48.87 L Est GFR (MDRD) Non-Af 56 L BUN/Creatinine Ratio 18.4 Glucose 80 Lactic Acid 4.4 H* Calcium 9.8 Magnesium 1.6 Total Bilirubin 0.48 Direct Bilirubin 0.22 AST 80 H ALT 27 Alkaline Phosphatase 103 Ammonia 12.6 L Troponin T High Sens 409 H* NT pro BNP II 2932 H Total Protein 8.0 Albumin 4.1 Globulin 3.9 Urine Color Yellow Urine Clarity Cloudy Urine pH 5.0 Ur Specific [place] 1.015 Urine Protein 100 H Urine Glucose (UA) Normal Urine Ketones Negative Urine Occult Blood 150 H Urine Nitrite Positive H Urine Bilirubin Negative Urine Urobilinogen Normal Ur Leukocyte Esterase 500 H Urine RBC 0-5 SEEN Urine WBC 25-50 SEEN Ur Squamous Epith Cells 0 SEEN Urine Bacteria 2+ Urine Mucus 0 SEEN ABG Data ABG results: ABG 10/10/24 10/10/24 01:52 03:48 Specimen Type MYLES ART Sample Site Not entered L Radial pH 7.31 L Bicarbonate Actual 21.9 L Total CO2 23 Base Excess -4 L O2 Saturation 92 L O2 % 6.0 85.0 ABG pCO2 43.9 ABG pO2 72 L [place] Test Positive VBG pH 7.39 VBG pO2 18 L* VBG HCO3 27 H VBG Total CO2 28 VBG O2 Sat (Calc) 25 L VBG Base Excess 2 POC Mix VBG pCO2 Pt Tmp 44.8 O2 Delivery Device Cannula AIRVO Vent Mode Not entered Crit Call To/Read Back Yes Blood Gas Notified Whom andes Blood Gas Notified Time 01:54:30 Clinical Comments AIRVO 55L 85% Radiography Diagnostic Testing: Clinical Impression(s) from Imaging Studies Chest X-Ray 10/10/24 02:00 IMPRESSION: There is now bilateral perihilar ill-defined opacities with a lower zone predominance and suggestion of possible subtle septal lines which may represent pulmonary edema within inflammatory or infectious process not excluded, clinically correlate. No focal consolidative change or evidence of pleural effusion identified.. Reading Location: [facility] Chest CTA 10/10/24 02:05 IMPRESSION: Motion artifact limits the evaluation. No evidence of filling defect to suggest pulmonary embolism. No large central or hilar saddle embolism. Overall findings are most suggestive of pulmonary edema, possible congestive heart failure, clinically correlate with small bilateral pleural effusions and adjacent areas of passive partial appearing collapse of the adjacent lower lobes. Can not entirely exclude a developing infectious process, clinically correlate. One or more dose reduction techniques were used (e.g., Automated exposure control, adjustment of the mA and/or kV according to patient size, use of iterative reconstruction technique). Reading Location: [facility] Abdomen/Pelvis CT 03/06/25 02:10 IMPRESSION: No evidence of acute intra-abdominal process. Suprapubic catheter in place within a collapsed bladder as above. No associated abscess or soft tissue gas identified. Bilateral ventral ostomies as above. No obstructive process, free air or free fluid. One or more dose reduction techniques were used (e.g., Automated exposure control, adjustment of the mA and/or kV according to patient size, use of iterative reconstruction technique). Reading Location: [facility] Chest x-ray as interpreted by the emergency medicine physician reveals bilateral opacities right greater than left concerning for developing pneumonia with changes showing mild increased vascular congestion Critical Care Time Critical Care Time: Yes Critical care time (excluding procedures): Discussing w/Patient &/or Family/Hyster Machine Operator, Discussing w/Consultants and - (Critical care time of 37 minutes) Discharge Plan Triage Chief Complaint: Confusion Other Complaint: Nausea/Vomiting ED Provider: Ross Crump Dx/Rx/DC Orders Clinical Impression: Sepsis, Type 2 diabetes mellitus, UTI (urinary tract infection), Acute respiratory failure with hypoxia, Non-ST elevated myocardial infarction (non-STEMI), Acute kidney injury, Pleural effusion Prescriptions: No Action insulin glargine-yfgn [Semglee(insulin glarg-yfgn)Pen] 100 unit/mL (3 mL) insulin pen 50 unit subcut BID atorvastatin 20 mg tablet 20 mg PO QDAY aspirin 81 MG tablet,chewable 81 mg PO DAILY insulin lispro [Humalog KwikPen Insulin] 100 unit/mL insulin pen 1 sliding scale dose SC TIDCM Protocol: 6. Sliding Scale Insulin Custom Condition: mg/dl range Dose/Route: Number of Units Condition: 0-200 Dose/Route: 0 Condition: 201-250 Dose/Route: 2 Condition: 251-300 Dose/Route: 4 Condition: 301-350 Dose/Route: 6 Condition: 351-400 Dose/Route: 8 Condition: 401-450 Dose/Route: 10 Condition: 451-500 Dose/Route: 12 Condition: 500+ Dose/Route: 14 Condition: 501+ Dose/Route: CALL MD Protocol Text: INJECT 4 UNITS SUBCUTANEOUSLY ALONG WITH SLIDING SCALE THREE TIMES A DAY AT 0730, 1130, AND 1630 duloxetine 60 MG capsule,delayed release(DR/EC) 30 mg PO DAILY Qty: 30 1RF amlodipine 10 mg tablet 10 mg PO DAILY melatonin 3 mg tablet 3 mg PO QHS simethicone 125 mg tablet,chewable 125 mg PO 4X/DAY PRN (Reason: abdominal distention) tamsulosin [Flomax] 0.4 mg capsule 0.8 mg PO QHS Tums 300 mg (750 mg) tablet,chewable 300 mg PO TID PRN (Reason: dyspepsia) [place] Saline 0.65 % aerosol,spray 2 spray intranasal Q4H PRN (Reason: dry nasal passages) Rx Instructions: while awake carvedilol 6.25 mg Tablet 6.25 mg PO BID Qty: 0 0RF metformin 500 mg tablet extended release 24 hr 500 mg PO BID gabapentin 300 mg capsule 300 mg PO DAILY potassium chloride [Klor-Con M20] 20 mEq tablet,ER particles/crystals 20 meq PO DAILY pantoprazole 40 mg tablet,delayed release (DR/EC) 40 mg PO DAILY sodium chloride 0.9 % Parenteral Solution 100 ea IV .continuous acetaminophen 325 mg capsule 650 mg PO Q6H PRN (Reason: pain) clopidogrel 75 mg tablet 75 mg PO DAILY Qty: 90 3RF Primary Care Provider: Kendy Modi Referrals: Kendy Modi MD [Primary Care Provider] - Print Language: Chinese Disposition Disposition: Acute Care Hospital [facility]
[2024-10-10] MEDS: Morphine 2 MG/ML Syringe IV (02:27)
[2024-10-10 02:33] LABS: Ammonia 12.6 umol/L (16-60)
[2024-10-10 02:35] LABS: AST(SGOT) 80 U/L (<=37); Alanine Aminotransfer ALT/SGPT 27 U/L (<=46); Albumin, Serum 4.1 g/dL (3.4-4.8); Alkaline Phosphatase 103 U/L (40-129); Anion Gap 18 (5-15); BUN 26 mg/dL (4-19); BUN/Creat Ratio 18.4 RATIO (10-20); Bilirubin, Direct 0.22 mg/dL (0.00-0.30); Calcium,Total 9.8 mg/dL (7.6-11.0); Carbon Dioxide 22.3 mmol/L (21.0-32.0); Chloride 100 mmol/L (98-108); Creatinine, Serum 1.39 mg/dL (0.70-1.20); EST Glomerular Filtration Rate 56 (>60); Estimated Creatinine Clearance 48.87 ml/min (50-250); Globulin 3.9 g/dL (2.2-4.2); Glucose 80 mg/dL (70-99); Magnesium 1.6 mg/dL (1.5-2.2); Potassium 4.3 mmol/L (3.3-5.1); Pro- Brain NATRIURETIC PEPTIDE 2932 pg/mL (<=900); Sodium Level 141 mmol/L (133-145); Total Bilirubin 0.48 mg/dL (0.00-1.30)
[2024-10-10] MEDS: 0.9% Normal Saline (1000mL) 1,000 ML 999 ML IV (02:35)
[2024-10-10] MEDS: proCHLORPERazine 10 MG/2 ML Vial 5 MG IV (02:36)
[2024-10-10 02:39] LABS: Lactic Acid 4.4 mmol/L (0.0-2.0); Troponin T High Sensitivity 409 ng/L (<=22)
[2024-10-10] MEDS: Vancomycin IV 1,000 MG/200 ML BAG 200 MG IV (02:45)
[2024-10-10] MEDS: HEPARIN/D5w 25,000 UNITS 25,000 UNITS/250 ML IV.SOLN. 9 UNITS CONT INF (03:17)
[2024-10-10] MEDS: Heparin Injection (Vial) 5,000 UNIT/ML VIAL 4000 UNIT IV (03:17)
[2024-10-10 03:21] LABS: Mucous, Urine 0 SEEN /hpf (<or=2+); Squamous Epithelial Cells - UA 0 SEEN /hpf (0-5)
[2024-10-10] MEDS: Clopidogrel Bisulfate 300 MG Tablet PO (03:25)
[2024-10-10] MEDS: Aspirin 325 MG Tablet PO (03:25)
[2024-10-10] MEDS: Lorazepam 2 MG/ML WCH Syringe 0.5 MG IV (03:28)
[2024-10-10 03:30] LABS: Color, Urine Yellow (Yellow); Glucose, Dipstick Normal (Normal); Ketone-Dipstick Negative (Negative); Leukocyte Esterase-Dipstick 500 /ul (Negative); Nitrite-Dipstick Positive (Negative); Occult Blood-Urine 150 /ul (Negative); Protein-Dipstick 100 mg/dl (Negative); Specific Gravity, Urine 1.015 (1.002-1.030); Urine Bilirubin Dipstick Negative (Negative); Urine Clarity Cloudy (Clear); Urine Urobilinogen Normal (Normal)
[2024-10-10 03:42] LABS: Bacteria 2+ /hpf (None Seen); Red Blood Cells-Urine 0-5 SEEN /hpf (0-5); White Blood Cells 25-50 SEEN /hpf (0-5)
[2024-10-10 03:42] LABS: International Normalized Ratio 1.1
[2024-10-10 03:43] LABS: Partial Thromboplast Time 58.1 Seconds (24.1-36.2)
--- NOTE | 2024-10-10 03:49 | CPS ---
decreased to 75%
[2024-10-10 03:53] LABS: Allen Test Positive; Base Excess -4 mmol/L (-2 to +2); Bicarbonate 21.9 mmol/L (22-26); Blood Gas Specimen Type ART; Comment AIRVO 55L 85%; Mode Not entered; O2 Delivery Device AIRVO; PO2 72 mmHG (75-100); SITE L Radial; SO2 92 % (95-99); Total Carbon Dioxide 23 mmol/L; pCO2 43.9 mmHg (35-45); pH 7.31 (7.35-7.45)
--- NOTE | 2024-10-10 03:54 | PCM.HP.STD ---
HPI - General General Date of Admission: 10/10/24 Date of Service: 10/10/24 Chief Complaint: Confusion, low grade T, N/V, dyspnea. 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, HTN, HLD, RLS, Orthostatic hypotension, ALEJANDRO on CPAP, GERD, Hx Colorectal cancer status postresection with colostomy in place, Chronic urinary retention with chronic indwelling suprapubic catheter, Restrictive Lung Disease, Hx CVA w/ carotid disease s/p R CEA, CAD s/p CABG and PCI, PAD s/p left lower extremity peripheral PCI, recent discharge 08/28/2024 following evaluation treatment with complicated urinary tract infection with suprapubic catheter exchange initial attempt however it was noted to have been sutured in place thus recommendation for urology for follow-up with his urologist at [facility] for outpatient change with urine culture with noted Klebsiella growth with cano sensitivity with associated acute encephalopathy that improved as well as lactic acidosis that improved who re-presents to the [facility] ED on 10/10/2024 with onset of low-grade fevers and altered mental status with increasing fatigue, malaise, mild headache and muscle aches prompting ED evaluation to be cautious. reports recent dyspnea without marked cough, nausea and emesis as well. all notes that he has intermittent been confused. Patient without any chest pain complaint noted. Workup in the ED included T98.6, heart rate 100, BP 149/91, respiratory rate 19, initially 86% on room air with improvement to 92% on 3 L however respiratory status worsened and patient required 7 L high flow to maintain 92% eventually placed on Airvo with FiO2 75% with 50 L, most recent repeat vitals T98.1, heart rate 104, respiratory rate 20, CBC with WBC 11.3, he 1 12.4, MCV 88, platelet 259 with left shift and lymphopenia, ABG with pH 7.39, pO2 18, bicarb 27 performed on nasal cannula, CMP with anion gap 18, BUN/creatinine 26/1.39, GFR 56, lactic acid 4.4, hepatic profile with AST 80 otherwise not marked appearing, ammonia 12.6, initial troponin 409, BNP 2932, chest x-ray with bilateral perihilar ill-defined opacities with a lower zone predominance suggestive of possible subtle septal lines possibly pulmonary edema with inflammatory or infectious process unable to be excluded, CT abdomen and pelvis with IV contrast with no evidence of any acute intra-abdominal process with evidence of suprapubic catheter in place within the collapsed bladder, bilateral ventral ostomies, no obstructive process, CTA chest with and without contrast with no evidence of any filling defect to suggest PE or any large or hilar saddle embolism, overall findings most suggestive of pulmonary edema, congestive heart failure with small bilateral pleural effusions and adjacent areas of passive partial appearing collapse of the adjacent lower lobes although cannot exclude infectious developing process, urinalysis with cloudy urine, protein 100, occult blood 150, positive nitrite, leukocyte Estrace 500 with urine WBCs 25-50 with 2+ urine bacteria, blood culture x 2 pending per ED, urine culture pending per ED, EKG with SR with V2-V5 ST depression, T wave inversions new from prior, rapid COVID/Influenza/RSV negative. In the ED patient administered aspirin 325 mg p.o. x 1, Plavix 300 mg p.o. load, heparin bolus and drip, morphine 2 mg IV x 1, Zofran 4 mg IV x 3, nitroglycerin transdermal x 1, IV Zosyn and IV vancomycin, Lasix 40 mg IV x 1 as well as prochlorperazine 5 mg IV x 1. ED discussed case with Dr. Smith. Given concern for overload component transitioned to BIPAP. [facility] Medical History Ileostomy present Colostomy in place Orthostatic hypotension Essential hypertension Loss of hearing Wears glasses Cancer Depression Insulin dependent diabetes mellitus Walker as ambulation aid Arthritis High cholesterol Restless legs Injury of back Injury of head and neck Syncope Dietary restriction Gastric reflux Non-smoker CPAP (continuous positive airway pressure) dependence Shortness of breath on exertion Leg cramps History of pain when walking History of echocardiogram History of stress test Cardiology follow-up encounter History of heart attack Colorectal cancer Dysphagia invasive rectal adenocarcinoma Diabetic neuropathy Restrictive lung disease Type 2 diabetes mellitus Anxiety disorder GERD (gastroesophageal reflux disease) Carotid artery disease Obstructive sleep apnea 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 Peripheral vascular occlusive disease CVA (cerebral vascular accident) ALEJANDRO (obstructive sleep apnea) Dyslipidemia HTN (hypertension) Home Medications ?Medication ?Instructions ?Recorded ?Last Taken ?Type aspirin 81 mg chewable tablet 81 mg PO DAILY heart health 03/20/16 03/10/23 History insulin lispro 100 unit/mL 1 sliding scale dose subcut TIDCM 09/26/21 03/10/23 History subcutaneous pen (Humalog KwikPen diabetes (U-100) Insulin) duloxetine 60 mg capsule,delayed 30 mg (1/2 x 60 mg) PO DAILY 03/12/23 03/10/23 Rx release depression #30 caps clopidogrel 75 mg tablet 75 mg PO DAILY blood thinner #90 10/10/23 Unknown Rx tabs pantoprazole 40 mg tablet,delayed 40 mg PO DAILY GERD 12/01/23 Unknown History release sodium chloride 0.9 % 100 ea IV .continuous fluid 12/02/23 Unknown History imbalance amlodipine 10 mg tablet 10 mg PO DAILY BLOOD PRESSURE 01/31/24 Unknown History calcium carbonate (Tums) 300 mg PO TID PRN dyspepsia 01/31/24 Unknown History melatonin 3 mg tablet 3 mg PO QHS 01/31/24 Unknown History simethicone 125 mg chewable tablet 125 mg PO 4X/DAY PRN abdominal 01/31/24 Unknown History distention sodium chloride 0.65 % nasal spray 2 spray intranasal Q4H PRN dry 01/31/24 Unknown History aerosol ([place] Saline) nasal passages tamsulosin 0.4 mg capsule (Flomax) 0.8 mg PO QHS 01/31/24 Unknown History carvedilol 6.25 mg tablet 6.25 mg PO BID #0 tabs 02/09/24 Unknown Rx acetaminophen 325 mg capsule 650 mg PO Q6H PRN pain 05/21/24 Unknown History atorvastatin 20 mg tablet 20 mg PO QDAY 05/21/24 Unknown History insulin glargine-yfgn 100 unit/mL 50 unit subcut BID 05/21/24 Unknown History (3 mL) subcutaneous pen (Semglee (insulin glargine-yfgn) Pen) gabapentin 300 mg capsule 300 mg PO DAILY 08/25/24 Unknown History metformin 500 mg tablet,extended 500 mg PO BID 08/25/24 Unknown History release 24 hr potassium chloride 20 mEq 20 meq PO DAILY 08/25/24 Unknown History tablet,extended release(part/cryst) (Klor-Con M) Allergy/AdvReac Type Severity Reaction Status Date / Time No Known Allergies Allergy Verified 10/10/24 01:30 Family History Father CAD (coronary artery disease) Hypertension Cancer leukemia Diabetes Heart disease High cholesterol Mother CVA (cerebral vascular accident) Diabetes Breast cancer Brother Diabetes Surgical History History of bilateral cataract extraction History of left heart catheterization (LHC) (~01/22/15) History of right and left heart catheterization (LHC) (~12/25/14) History of eye surgery PTCA Left Anterior Tibial and Paroneal Artery History of coronary artery stent placement (01/02/15) H/O coronary artery bypass surgery (05/30/08) History of right-sided carotid endarterectomy Excision Max.Zygoma Face Tumor History of tonsillectomy History of herniorrhaphy Social History (Updated 10/10/24 @ 03:[address] Kendra Yuan MD) household members: spouse Smoking Status: Never smoker alcohol intake: never substance use type: does not use caffeine: Yes what type of physical activity do you participate in: none ROS ROS Narrative Admission Review of Systems: CONSTITUTIONAL: No weight loss, +fever, chills, weakness or fatigue. HEENT: Eyes: No visual loss, blurred vision, double vision or yellow sclerae. Ears, Nose, Throat: No hearing loss, sneezing, congestion, runny nose or sore throat. SKIN: No rash or itching, lesions, wounds. CARDIOVASCULAR: No chest pain, chest pressure or chest discomfort, palpitations, edema, orthopnea, syncopal events. RESPIRATORY: + Dyspnea. No recent marked cough or sputum, wheezing, hemoptysis. GASTROINTESTINAL: + Decreased appetite, nausea and emesis. No diarrhea, abdominal pain, melena, BRBPR. GENITOURINARY: No dysuria, frequency, urgency or retention. NEUROLOGICAL: + Confusion, headache, chronic diabetic neuropathy. No dizziness, syncope, paralysis, ataxia, focal weakness, change in bowel or bladder control, seizure. MUSCULOSKELETAL: + muscle, back pain, joint pain or stiffness. HEMATOLOGIC: + Chronic anemia, easy bleeding/bruising history. LYMPHATICS: No enlarged nodes. No history of splenectomy. PSYCHIATRIC: + History of anxiety and depression. ENDOCRINOLOGIC: No reports of sweating, cold or heat intolerance. No polyuria or polydipsia. ALLERGIES: + History of rhinitis. Vital Signs Vital Signs Vital Signs: 10/10/24 01:25 10/10/24 01:29 10/10/24 01:38 Temperature 98.6 F Temperature Source Oral Pulse Rate 100 Respiratory Rate 19 H Blood Pressure 149/91 H Blood Pressure Mean 110 Pulse Ox 86 92 88 Oxygen Delivery Method Room Air Nasal Cannula Nasal Cannula Oxygen Flow Rate (L/min) 3 3 Fraction of Inspired Oxygen (FIO2) 10/10/24 01:38 10/10/24 01:42 10/10/24 01:44 Temperature Temperature Source Pulse Rate Respiratory Rate Blood Pressure Blood Pressure Mean Pulse Ox 88 90 88 Oxygen Delivery Method Nasal Cannula Nasal Cannula Nasal Cannula Oxygen Flow Rate (L/min) 4 4 4 Fraction of Inspired Oxygen (FIO2) 10/10/24 01:50 10/10/24 01:54 10/10/24 02:15 Temperature Temperature Source Pulse Rate 104 H Respiratory Rate 24 H Blood Pressure Blood Pressure Mean Pulse Ox 88 92 92 Oxygen Delivery Method Nasal Cannula High Flow Oxygen Flow Rate (L/min) 6 7 Fraction of Inspired Oxygen (FIO2) 60 10/10/24 02:17 10/10/24 02:29 10/10/24 02:34 Temperature 98.1 F Temperature Source Oral Pulse Rate 102 H 105 H 104 H Respiratory Rate 16 20 H Blood Pressure 147/60 H 139/89 H Blood Pressure Mean 105 Pulse Ox 91 Oxygen Delivery Method Airvo Oxygen Flow Rate (L/min) 50 Fraction of Inspired Oxygen (FIO2) 75 75 10/10/24 03:00 10/10/24 03:24 10/10/24 03:48 Temperature 98.5 F Temperature Source Oral Pulse Rate 107 H 118 H 120 H Respiratory Rate 22 H 11 L 21 H Blood Pressure 102/64 Blood Pressure Mean 76 Pulse Ox 92 95 96 Oxygen Delivery Method Airvo Oxygen Flow Rate (L/min) 55 Fraction of Inspired Oxygen (FIO2) 85 85 75 Weight Weight: 160 lb 0.889 oz Body Mass Index (BMI) 25.0 Physical Exam Narrative Physical Examination: General: Awake and stimuli, intermittently alert, oriented to self and some things but intermittently confused which notes has been occurring since he has been ill-appearing, laying in the ED bed, on BiPAP, no evidence of any respiratory distress. Skin: Normal color, normal turgor, no icterus, no cyanosis. HEENT: AT/NC, EOMI, PERRLA, mildly dry MM, BiPAP in place, difficult to discern bruits given referred sounds from BiPAP, + JVD noted. Lungs: Diminished, greater bases, BiPAP in place, mild tachypnea but no respiratory distress, mildly rhonchorous in the lower lobes, no wheezing. Heart: Tachycardic with regular rhythm; no gallop, rub audible. Abdomen: Soft, NTTP, ND, ostomy in place, mildly decreased BS, no appreciated HSM. Extremities: No cyanosis, clubbing, or edema. Neurological: Patient awake, alert, oriented as noted, cognitive function improving but still not baseline intact; pupils equally reactive to light and accommodation, cranial nerves grossly normal, moving all 4 extremities, no focal deficits, strength severely globally decreased Psychiatric: Affect appears flat, fatigued, intermittently more lethargic, no acute evidence of depressive or anxiety feelings but does have underlying history. Results Lab / Micro Data 10/10/24 01:37 10/10/24 01:37 Labs: Laboratory Results - last 24 hr 10/10/24 01:37: WBC 11.3 H, RBC 4.25 L, Hgb 12.4 L, Hct 37.4 L, MCV 88.0, MCH 29.2, MCHC 33.2, RDW Std Deviation 46.3 H, RDW Coeff of Maia 14.5, Plt Count 259, MPV 10.0, Immature Gran % (Auto) 0.400, Neut % (Auto) 87.2 H, Lymph % (Auto) 5.4 L, Edmunds % (Auto) 6.6, Eos % (Auto) 0.2, Baso % (Auto) 0.2, Absolute Neuts (auto) 9.9 H, Absolute Lymphs (auto) 0.61 L, Nucleated RBC % 0, PT 14.0, INR 1.1, APTT 58.1 H, Sodium 141, Potassium 4.3, Chloride 100, Carbon Dioxide 22.3, Anion Gap 18 H, BUN 26 H, Creatinine 1.39 H, Estim Creat Clear Calc 48.87 L, Est GFR (MDRD) Non-Af 56 L, BUN/Creatinine Ratio 18.4, Glucose 80, Lactic Acid 4.4 H*, Calcium 9.8, Magnesium 1.6, Total Bilirubin 0.48, Direct Bilirubin 0.22, AST 80 H, ALT 27, Alkaline Phosphatase 103, Ammonia 12.6 L, Troponin T High Sens 409 H*, NT pro BNP II 2932 H, Total Protein 8.0, Albumin 4.1, Globulin 3.9 10/10/24 03:18: Urine Color Yellow, Urine Clarity Cloudy, Urine pH 5.0, Ur Specific Eunice 1.015, Urine Protein 100 H, Urine Glucose (UA) Normal, Urine Ketones Negative, Urine Occult Blood 150 H, Urine Nitrite Positive H, Urine Bilirubin Negative, Urine Urobilinogen Normal, Ur Leukocyte Esterase 500 H, Urine RBC 0-5 SEEN, Urine WBC 25-50 SEEN, Ur Squamous Epith Cells 0 SEEN, Urine Bacteria 2+, Urine Mucus 0 SEEN Micro: Microbiology 10/10/24 01:40 Mucosa - Nose SARS-CoV-2, Influenza & RSV (PCR) - Final ABG Data ABG results: ABG 10/10/24 10/10/24 01:52 03:48 Specimen Type MYLES ART Sample Site Not entered L Radial pH 7.31 L Bicarbonate Actual 21.9 L Total CO2 23 Base Excess -4 L O2 Saturation 92 L O2 % 6.0 85.0 ABG pCO2 43.9 ABG pO2 72 L Chicho Test Positive VBG pH 7.39 VBG pO2 18 L* VBG HCO3 27 H VBG Total CO2 28 VBG O2 Sat (Calc) 25 L VBG Base Excess 2 POC Mix VBG pCO2 Pt Tmp 44.8 O2 Delivery Device Cannula AIRVO Vent Mode Not entered Crit Call To/Read Back Yes Blood Gas Notified Whom andes Blood Gas Notified Time 01:54:30 Clinical Comments AIRVO 55L 85% Imaging Radiology Impression Chest X-Ray 10/10/24 02:00 IMPRESSION: There is now bilateral perihilar ill-defined opacities with a lower zone predominance and suggestion of possible subtle septal lines which may represent pulmonary edema within inflammatory or infectious process not excluded, clinically correlate. No focal consolidative change or evidence of pleural effusion identified.. Reading Location: [facility] Chest CTA 10/10/24 02:05 IMPRESSION: Motion artifact limits the evaluation. No evidence of filling defect to suggest pulmonary embolism. No large central or hilar saddle embolism. Overall findings are most suggestive of pulmonary edema, possible congestive heart failure, clinically correlate with small bilateral pleural effusions and adjacent areas of passive partial appearing collapse of the adjacent lower lobes. Can not entirely exclude a developing infectious process, clinically correlate. One or more dose reduction techniques were used (e.g., Automated exposure control, adjustment of the mA and/or kV according to patient size, use of iterative reconstruction technique). 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, HTN, HLD, RLS, Orthostatic hypotension, ALEJANDRO on CPAP, GERD, Hx Colorectal cancer status postresection with colostomy in place, Chronic urinary retention with chronic indwelling suprapubic catheter, Restrictive Lung Disease, Hx CVA w/ carotid disease s/p R CEA, CAD s/p CABG and PCI, PAD s/p left lower extremity peripheral PCI, recent discharge 08/28/2024 following evaluation treatment with complicated urinary tract infection with suprapubic catheter exchange initial attempt however it was noted to have been sutured in place thus recommendation for urology for follow-up with his urologist at [facility] for outpatient change with urine culture with noted Klebsiella growth with cano sensitivity with associated acute encephalopathy that improved as well as lactic acidosis that improved who re-presents to the [facility] ED on 10/10/2024 with onset of low-grade fevers and altered mental status with increasing fatigue, malaise, mild headache and muscle aches prompting ED evaluation to be cautious. #1. Acute Sepsis (Acute Complicated UTI, Possible PNA, LA elevated, MADELEINE end organ damage component, acute hypoxic respiratory failure, evidence UTI on UA) secondary to Acute Encephalopathy secondary to Acute Hypoxic Respiratory Failure, felt multifactorial, secondary to concern for Acute bilateral lower lobe pneumonia with recent admission thus concern for possible gram-negative/gram-positive organisms complicated by underlying restrictive lung disease history as well as Acute Complicated UTI secondary to Chronic Indwelling Suprapubic Catheter in addition to more pronounced concern for Acutely Decompensated HFpEF with associated elevated cardiac enzyme, possibly NSTEMI secondary to demand with hypoxemia as well as noted lactic acidosis possibly also secondary to hypoxemia concurrently: Patient administered IV lasix in the ED. Given respiratory failure will admit to the ICU to be cautious, will place on BIPAP to assist with overload, will defer 30 cc/kg IVFs given overload appearance and need for diuresis, will maintain on cardiac telemetry, obtain cardiac enzyme series, obtain serial EKGs, continue IV lasix diuresis, monitor I/Os, maintain on intake restriction, continue medical therapy, obtain TSH, supplement magnesium with repeat level following, most recent ECHO noted 05/28/2024 with LVEF 60%, moderate focal MV calcification, bileaflet, mild MVI, mild TBI, moderate diffuse aortic valve calcification with sclerosis without stenosis thus given current presentation with NSTEMI will repeat. Will continue aggressive oxygen supplementation with de-escalation as able, PRN albuterol, will maintain on BSA with IV Zosyn and IV vancomycin with pending MRSA screen with de-escalation of antibiotic therapy if able with lower suspicion of PNA and suspect more likely heart failure causing hypoxia with acute UTI as well, HOB, IS parameters w/ pending sputum cultures and urine antigens. Full respiratory viral pending per ED. Bld cx x 2 obtained in the ED. Will request Urology consult for suprapubic catheter change as notes with recent change following last admission they did not suture it in place. PT/OT/case management consult for discharge planning. #2. Elevated troponin, potential NSTEMI type II suspected secondary to demand with noted hypoxemia and acute presentation as noted #1: EKG with SR with V2-V5 ST depression, T wave inversions new from prior, CXR/CTPA with overload concerns as noted, trop elevated, 409. Will maintain on a monitored bed, continue serial cardiac enzymes and EKGs. Magnesium 1.6 per ED with supplementation administered. Will maintain on heparin drip. Continue medical management with aspirin, Plavix concurrently, already loaded in the ED. ECHO requested. Cardiology consulted. #3. Acute kidney injury: Secondary to acute presentation #1, admission BUN/Cr 26/1.39, GFR 56, baseline renal function primarily 0.6-0.7 although has vacillated, unfortunately given current presentation will need to continue diuresis, will hold any other nephrotoxic medications aside lasix, continue to closely trend and further evaluate if needed. #4. CAD: Status post CABG x 5 with ZUNIGA to LAD and D1, free KIMBERLYN to PDA, SVG to ramus, SVG to OM1 2007 and PCI including [id number] 2014, will continue aspirin, Plavix as noted above with low given the ED, statin therapy, Coreg, not on ILDA inhibitor/ARB and regardless given acute kidney injury would hold. #5. PAD: Noted PTCA left anterior tibial and peroneal artery, will continue aspirin, Plavix as noted above with low given the ED, statin therapy, hypertensive regimen as noted, diabetic regimen with adjustments as noted. #6. History CVA: We will continue aspirin, Plavix as noted above with load given in the ED, statin therapy, hypertensive regimen as BP allows, diabetic regimen with adjustments as noted. #7. Hypertension: Continue home regimen including amlodipine, Coreg, IV Lasix as able, PRN hydralazine. #8. Hyperlipidemia: Continue home statin regimen. AM FLP. #9. Carotid disease: Status post right carotid endarterectomy, will continue aspirin, Plavix as noted above with low given the ED, statin therapy, hypertensive regimen as noted, diabetic regimen with adjustments as noted. #10. Diabetes mellitus type II with chronic neuropathy: Hold oral home regimen, continue home insulin regimen, NPO status pending cardiology evaluation to be cautious, accu checks w/ ISS, continue chronic gabapentin regimen. #11. Anxiety and depression: We will continue patient home duloxetine regimen. #12. Chronic normocytic anemia: Admission hemoglobin 12.4, MCV 88, baseline hemoglobin 10-11 primarily, continue to trend. #13. History colorectal cancer: Patient s/p resection with radiation and chemotherapy in 2020, ostomy in place, consider admission, encourage continued outpatient follow-up as previously arranged. #14. ALEJANDRO: Normally uses CPAP nightly, initially in the ED transitioned to high flow/Airvo, given overload concern transitioned to BIPAP. #15. BPH with obstructive pathology with chronic suprapubic catheter: We will continue patient on Flomax regimen, continue treatment of UTI as noted. Will request Urology consult for suprapubic catheter change as notes with recent change following last admission they did not suture it in place. #16. GERD: We will continue patient on PPI. #17. DVT prophylaxis: Will continue heparin drip. #18. CODE status: Patient healthcare Pap attorney lawyer living will not in place but his who is present would be his medical decision-maker if necessary. Discussed CODE status at length including difference between FULL code, DNR-CCA and DNR-CC status. Following discussions about the differences in these status, requested DNR-CCA, no intubation. Verified CODE STATUS and gave example including what patient would want if his heart was still beating but he stopped breathing and even the situation he and his declined intubation. Advanced Care Planning Face to Face Time: 16 minutes. Charges/Coding Visit Charges Inpatient E&M: 16276 Init Hosp L3 Procedures Hospitalists Procedures: 07444 Advncd Care Plan 30 Min
[2024-10-10] MEDS: Furosemide 40 MG/4 ML Vial IV ×2 (04:01→10:41)
[2024-10-10 04:02] LABS: Troponin T High Sens 2 HR 407 ng/L (<=22)
--- NOTE | 2024-10-10 04:08 | ED.RN ---
Per Dr Crump stop the normal saline fluid bolus, fluid bolus stopped.
--- NOTE | 2024-10-10 04:08 | CPS ---
pt placed on bipap per hospitalist
--- NOTE | 2024-10-10 04:12 | EKG12_ITS ---
Test Reason : CHF Blood Pressure : */* mmHG Vent. Rate : 80 BPM Atrial Rate : 80 BPM P-R Int : 162 ms QRS Dur : 116 ms QT Int : 402 ms P-R-T Axes : 66 5 101 degrees QTcB Int : 463 ms Normal sinus rhythm Low voltage QRS ST & T wave abnormality, consider anterior ischemia Prolonged QT Abnormal ECG When compared with ECG of 10-Oct-2024 01:40, MANUAL COMPARISON REQUIRED DATA IS UNCONFIRMED Confirmed by Etienne Darden ([id number]), editorial clerk RY AU ([id number]) on 10/14/2024 1:08:04 PM Referred By: Confirmed By: Etienne Darden
--- NOTE | 2024-10-10 05:10 | ED.RN ---
report called to Jh Adame.
--- NOTE | 2024-10-10 05:23 | ECHOD_ITS ---
Reason For Study Reason For Study: CHF Procedure This was a 2D Doppler, Color Flow transthoracic echocardiogram. The study was technically difficult. PT was unable to lie still for exam, constant motion. Exam performed portable in ICU/CCU. Left Ventricle Normal size and thickness. Severe LV segmental wall motion. Basal portions of the lateral wall, inferior wall, anterior wall, inferior and anterior septum are severely hypokinetic to akinetic. Only the apex is bertha well. Estimated LVEF 35 to 40%. Stage III diastolic dysfunction. Right Ventricle Normal RV size. Normal systolic function. Atria The left atrium is severely enlarged. The right atrium is mildly enlarged. Mitral Valve Moderate (2+) mitral valve insufficiency. Tricuspid Valve Moderate to severe tricuspid valve insufficiency. Right ventricular systolic pressure estimated at 46 mmHg. Aortic Valve Moderate to severe aortic valve calcification. Aortic valve sclerosis with no stenosis. Pulmonic Valve The pulmonic valve is not well visualized. Great Vessels Normal sized aortic root. Pericardium/Pleural No pericardial effusion. MMode/2D Measurements & Calculations LVIDd: 5.3 cm IVSd: 1.0 cm Ao root diam: 3.5 cm LVIDs: 4.4 cm LVPWd: 0.80 cm LA dimension: 4.8 cm RVDd: 3.4 cm FS: 18.3 % LAV(MOD-bp): 67.9 ml LVAd ap4: 29.4 cm2 LVAd ap2: 33.1 cm2 LAV(MOD-bp) Indexed: 38.4 ml/m2 LVLd ap4: 8.1 cm LVLd ap2: 8.8 cm LAV(MOD-sp2): 60.8 ml EDV(MOD-sp4): 88.8 ml EDV(MOD-sp2): 103.3 ml LAV(MOD-sp4): 63.0 ml EDV(sp4-el): 90.4 ml EDV(sp2-el): 105.6 ml LVAs ap4: 21.1 cm2 LVAs ap2: 22.9 cm2 LVLs ap4: 6.8 cm LVLs ap2: 7.6 cm ESV(MOD-sp4): 55.0 ml ESV(MOD-sp2): 57.3 ml ESV(sp4-el): 55.9 ml ESV(sp2-el): 58.7 ml EF(MOD-sp4): 38.1 % EF(MOD-sp2): 44.6 % EF(sp4-el): 38.2 % SV(MOD-sp4): 33.8 ml SV(MOD-sp2): 46.1 ml SV(sp4-el): 34.6 ml SI(MOD-sp4): 19.1 ml/m2 SI(MOD-sp2): 26.0 ml/m2 Aortic Valve Planimetry: 1.9 cm2 LA A4 area: 20.1 cm2 LA dimension(2D): 4.5 cm TAPSE: 1.0 cm RA A4 area: 14.1 cm2 Time Measurements MV dec time: 0.11 sec Doppler Measurements & Calculations MV E max paul: 126.4 cm/sec Lat Peak E' Paul: 8.2 cm/sec Med Peak E' Paul: 9.0 cm/sec MV A max paul: 60.6 cm/sec E/E' lat: 15.5 E/E' med: 14.0 MV E/A: 2.1 MV V2 max: 130.7 cm/sec MV P1/2t max paul: 136.5 cm/sec Ao V2 max: 126.8 cm/sec MV max P.8 mmHg MV P1/2t: 26.4 msec Ao max P.4 mmHg MV V2 mean: 69.7 cm/sec MV dec slope: 1512 cm/sec2 Ao V2 mean: 85.1 cm/sec MV mean P.3 mmHg Ao mean P.2 mmHg MV V2 VTI: 17.3 cm MVA(P1/2t): 8.3 cm2 Ao V2 VTI: 17.6 cm AV (velocity ratio): 0.65 LV V1 max: 85.8 cm/sec MR max paul: 451.6 cm/sec PA V2 max: 100.3 cm/sec LV V1 max P.9 mmHg MR max P.6 mmHg LV V1 mean P.4 mmHg MR mean paul: 362.5 cm/sec LV V1 mean: 55.2 cm/sec MR mean P.0 mmHg LV V1 VTI: 11.5 cm MR VTI: 104.4 cm PI end-d paul: 217.3 cm/sec TR max paul: 302.2 cm/sec TR max P.5 mmHg ECHO/Echo Complete Interpretation Summary Severe LV segmental wall motion. Basal portions of the lateral wall, inferior w all, anterior wall, inferior and anterior septum are severely hypokinetic to akinetic. Only the apex is bertha well. Estimated LVEF 35 to 40%. Stage III diastolic dysfunction. The left atrium is severely enlarged. The right atrium is mildly enlarged. Moderate (2+) mitral valve insufficiency. Moderate to severe tricuspid valve insufficiency. Right ventricular systolic pr essure estimated at 46 mmHg. Moderate to severe aortic valve calcification. Aortic valve sclerosis with no s tenosis. Valve area 1.9 cm?? by planimetry. Ordering Physician: Kendra Yuan Referring Physician: Kendy Modi Performed By: Raya Ma, MUKESHCS, RVT
[2024-10-10] MEDS: Magnesium Sulfate 2 GM in Dextrose 5%-Water (100mL Bag) 100 ML IV (05:57)
--- NOTE | 2024-10-10 06:21 | PCM.RX.CS ---
Consult Antibiotic Management Pharmacy has been consulted to manage selected antibiotic: Vancomycin Type of Intervention Type of Consult: New start Microbiology Microbiology: Microbiology 10/10/24 03:18 Urine Catheter - Catheter Streptococcus pneumoniae Antigen (M - Final 10/10/24 03:18 Urine Catheter - Robb Legionella Antigen - Final 10/10/24 01:40 Mucosa - Nose SARS-CoV-2, Influenza & RSV (PCR) - Final Dosing Weight Weight used for dosin.5 kg Estimated Creatinine Clearance Estimated Creatinine Clearance: 48.87 Goal Trough Goal Trough: 15-20 mcg/mL Pharmacy Plan for Drug Dosing Pharmacy Plan for Drug Dosing: Pharmacy Service will continue to monitor and adjust dosing as required. 1000MG GIVEN IN ER @ 0245. START 500MG Q12H AND FOLLOW UP TROUGH PRIOR TO 4TH DOSE Follow-Up Labs Follow-Up Labs: Trough: Vancomycin Date/Time Labs Ordered Labs to be done on [date and time ordered]: 10/11 @ 1682
[2024-10-10 06:25] LABS: Absolute Lymphocyte Count 0.71 X10^3/uL (0.83-4.51); Absolute Neutrophil Count 9.2 X10^3/uL (2.0-7.7); Basophil# 0.01 X10^3/uL; Basophil% 0.1 % (0-1); Eosinophil# 0.01 X10^3/uL; Eosinophils% 0.1 % (0-5); Hematocrit 32.7 % (40-54); Hemoglobin 10.9 g/dL (13.0-16.5); Lymphocyte # 0.71 X10^3/ul (0.83-4.51); Lymphocyte % 6.7 % (19-41); Mean Corp Hgb Conc 33.3 g/dL (32-36); Mean Corpuscular Hgb 29.3 pg (27.0-32.0); Mean Corpuscular Volume 87.9 fL (80-94); Mean Platelet Vol. 10.5 fl (6.2-12.0); Monocyte# 0.65 X10^3/uL; Monocyte% 6.1 % (0-10); NRBC Flagged by Analyzer 0 % (0-5); Neutrophil # 9.17 X10^3/uL (2.7-7.7); Neutrophil % 86.7 % (47-70); Platelet Count 245 K/mm3 (150-450); RBC Distribution Width CV 14.6 % (11.6-14.6); RBC Distribution Width SD 46.8 fl (35.1-43.9); Red Blood Count 3.72 M/mm3 (4.6-6.2); White Blood Count 10.6 K/mm3 (4.4-11.0)
[2024-10-10] MEDS: HEPARIN/D5w 25,000 UNITS 25,000 UNITS/250 ML IV.SOLN. 10 UNITS CONT INF (07:26)
--- NOTE | 2024-10-10 07:45 | EX.PCM.CONCC ---
Assessment & Plan Assessment/Plan (1) Combined systolic and diastolic congestive heart failure: (2) Acute kidney injury: (3) Non-ST elevated myocardial infarction (non-STEMI): (4) Acute respiratory failure with hypoxia: (5) Sepsis: PLAN: Plan RECOMMENDATIONS: 1. Transition from BiPAP to nasal cannula oxygen. Continue to wean to maintain saturations at or above 90%. 2. Continue empiric antimicrobials, pending culture results. 3. Continue heparin infusion. 4. Diuresis as tolerated by hemodynamics and renal function. 5. PAP therapy with naps and nightly. 6. Echocardiogram is pending. IMPRESSIONS: 1. Sepsis The patient presented to the hospital with sepsis due to suspected UTI with acute sepsis related organ dysfunction as evidenced by lactic acidemia and respiratory failure requiring noninvasive positive pressure ventilatory support. The patient will be continued on antimicrobial therapy, pending culture results. He remains hemodynamically stable. 2. Acute respiratory failure with hypoxemia Most likely secondary to underlying congestive heart failure, as opposed to an occult infectious process. Agree with continuing diuresis as tolerated. The patient has responded to noninvasive positive pressure ventilatory support and will be weaned to nasal cannula oxygen. 3. NSTEMI/acute decompensated heart failure Continue current medical management per cardiology recommendations, while awaiting results of echocardiogram. 4. History of coronary artery disease/history of CVA/diabetes mellitus/obstructive sleep apnea/peripheral arterial disease Complicates care, management, recovery and prognosis. Continue home medications as indicated. Recommend continuing PAP therapy nightly per home regimen. CODE STATUS: DNR CCA without intubation This note was generated with [employer] dictation software. It may contain incorrect words, spelling, and punctuation that were not noted in checking the note before signing. HPI Consult Data Date of Consult: 10/10/24 HPI Narrative Reason for Consultation: Sepsis HPI Narrative: The patient is a 68-year-old male, with a history as outlined below, who presented to the emergency department on October 10 with shortness of breath, altered mentation and fever. The patient has a known history of diabetes mellitus, obstructive sleep apnea, history of colon cancer with ostomy, chronic urinary retention with suprapubic catheter, prior history of CVA, coronary artery disease status post CABG and peripheral arterial disease. The patient was last admitted to the hospital in August 2024 with a complicated urinary tract source of infection, which required antimicrobial therapy under the discretion of infectious diseases. On presentation to the emergency department, the patient was documented to be afebrile and hemodynamically stable. He was initially saturating 86% on room air. Laboratory evaluation was notable for a white blood cell count of 11,000. Chemistry profile was notable for a creatinine of 1.39 with a lactate of 4.4. Troponin was elevated at 409 with a BNP of 2932. Urinalysis was positive for nitrites and leukocyte esterase along with 2+ urine bacteria. CTA chest showed no evidence for pulmonary embolism. Bilateral pleural effusions were noted along with evidence of pulmonary edema. CT abdomen/pelvis demonstrated no acute intra-abdominal process. Over concerns for volume overload, the patient received Lasix and was placed on BiPAP therapy. He was subsequently admitted to the medical intensive care unit for further management. [facility] Medical History Ileostomy present Colostomy in place Orthostatic hypotension Essential hypertension Loss of hearing Wears glasses Cancer Depression Insulin dependent diabetes mellitus Walker as ambulation aid Arthritis High cholesterol Restless legs Injury of back Injury of head and neck Syncope Dietary restriction Gastric reflux Non-smoker CPAP (continuous positive airway pressure) dependence Shortness of breath on exertion Leg cramps History of pain when walking History of echocardiogram History of stress test Cardiology follow-up encounter History of heart attack Colorectal cancer Dysphagia invasive rectal adenocarcinoma Diabetic neuropathy Restrictive lung disease Type 2 diabetes mellitus Anxiety disorder GERD (gastroesophageal reflux disease) Carotid artery disease Obstructive sleep apnea 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 Peripheral vascular occlusive disease CVA (cerebral vascular accident) ALEJANDRO (obstructive sleep apnea) Dyslipidemia HTN (hypertension) Home Medications ?Medication ?Instructions ?Recorded ?Last Taken ?Type aspirin 81 mg chewable tablet 81 mg PO DAILY heart health 03/20/16 03/10/23 History insulin lispro 100 unit/mL 1 sliding scale dose subcut TIDCM 09/26/21 03/10/23 History subcutaneous pen (Humalog KwikPen diabetes (U-100) Insulin) duloxetine 60 mg capsule,delayed 30 mg (1/2 x 60 mg) PO DAILY 03/12/23 03/10/23 Rx release depression #30 caps clopidogrel 75 mg tablet 75 mg PO DAILY blood thinner #90 10/10/23 Unknown Rx tabs pantoprazole 40 mg tablet,delayed 40 mg PO DAILY GERD 12/01/23 Unknown History release sodium chloride 0.9 % 100 ea IV .continuous fluid 12/02/23 Unknown History imbalance amlodipine 10 mg tablet 10 mg PO DAILY BLOOD PRESSURE 01/31/24 Unknown History calcium carbonate (Tums) 300 mg PO TID PRN dyspepsia 01/31/24 Unknown History melatonin 3 mg tablet 3 mg PO QHS 01/31/24 Unknown History simethicone 125 mg chewable tablet 125 mg PO 4X/DAY PRN abdominal 01/31/24 Unknown History distention sodium chloride 0.65 % nasal spray 2 spray intranasal Q4H PRN dry 01/31/24 Unknown History aerosol ([place] Saline) nasal passages tamsulosin 0.4 mg capsule (Flomax) 0.8 mg PO QHS 01/31/24 Unknown History carvedilol 6.25 mg tablet 6.25 mg PO BID #0 tabs 02/09/24 Unknown Rx acetaminophen 325 mg capsule 650 mg PO Q6H PRN pain 05/21/24 Unknown History atorvastatin 20 mg tablet 20 mg PO QDAY 05/21/24 Unknown History insulin glargine-yfgn 100 unit/mL 50 unit subcut BID 05/21/24 Unknown History (3 mL) subcutaneous pen (Semglee (insulin glargine-yfgn) Pen) gabapentin 300 mg capsule 300 mg PO DAILY 08/25/24 Unknown History metformin 500 mg tablet,extended 500 mg PO BID 08/25/24 Unknown History release 24 hr potassium chloride 20 mEq 20 meq PO DAILY 08/25/24 Unknown History tablet,extended release(part/cryst) (Klor-Con M) Allergy/AdvReac Type Severity Reaction Status Date / Time No Known Allergies Allergy Verified 10/10/24 01:30 Family History Father CAD (coronary artery disease) Hypertension Cancer leukemia Diabetes Heart disease High cholesterol Mother CVA (cerebral vascular accident) Diabetes Breast cancer Brother Diabetes Surgical History History of bilateral cataract extraction History of left heart catheterization (LHC) (~01/22/15) History of right and left heart catheterization (LHC) (~12/25/14) History of eye surgery PTCA Left Anterior Tibial and Paroneal Artery History of coronary artery stent placement (01/02/15) H/O coronary artery bypass surgery (05/30/08) History of right-sided carotid endarterectomy Excision Max.Zygoma Face Tumor History of tonsillectomy History of herniorrhaphy Social History (Updated 10/10/24 @ 03:[address] Kendra Yuan MD) household members: spouse Smoking Status: Never smoker alcohol intake: never substance use type: does not use caffeine: Yes what type of physical activity do you participate in: none ROS ROS Narrative 10 systems were reviewed with pertinent positives as noted in the HPI above. Physical Exam Const alert and no apparent distress General Appearance: cooperative HEENT normocephalic and head/scalp atraumatic Eyes PERRL, EOMs intact bilaterally and conjunctivae normal Neck supple General: trachea midline Chest inspection of chest normal Resp Auscultation: diminished lung sounds; Negative for rales, rhonchi or wheezes Cardio regular rate and regular rhythm GI normal to inspection, nondistended, normoactive bowel sounds Inspection: ostomy present Extremity no clubbing, cyanosis or edema Skin no rashes or lesions noted Neuro CN's II-XII intact bilaterally and no focal motor deficits Psych Mood & Affect: flat affect Lab / Micro Data 10/10/24 05:57 10/10/24 07:18 Labs: Laboratory Results - last 24 hr 10/10/24 01:37: WBC 11.3 H, RBC 4.25 L, Hgb 12.4 L, Hct 37.4 L, MCV 88.0, MCH 29.2, MCHC 33.2, RDW Std Deviation 46.3 H, RDW Coeff of Maia 14.5, Plt Count 259, MPV 10.0, Immature Gran % (Auto) 0.400, Neut % (Auto) 87.2 H, Lymph % (Auto) 5.4 L, Winkler % (Auto) 6.6, Eos % (Auto) 0.2, Baso % (Auto) 0.2, Absolute Neuts (auto) 9.9 H, Absolute Lymphs (auto) 0.61 L, Nucleated RBC % 0, PT 14.0, INR 1.1, APTT 58.1 H, Sodium 141, Potassium 4.3, Chloride 100, Carbon Dioxide 22.3, Anion Gap 18 H, BUN 26 H, Creatinine 1.39 H, Estim Creat Clear Calc 48.87 L, Est GFR (MDRD) Non-Af 56 L, BUN/Creatinine Ratio 18.4, Glucose 80, Lactic Acid 4.4 H*, Calcium 9.8, Magnesium 1.6, Total Bilirubin 0.48, Direct Bilirubin 0.22, AST 80 H, ALT 27, Alkaline Phosphatase 103, Ammonia 12.6 L, Troponin T High Sens 409 H*, NT pro BNP II 2932 H, Total Protein 8.0, Albumin 4.1, Globulin 3.9 10/10/24 03:18: Urine Color Yellow, Urine Clarity Cloudy, Urine pH 5.0, Ur Specific [place] 1.015, Urine Protein 100 H, Urine Glucose (UA) Normal, Urine Ketones Negative, Urine Occult Blood 150 H, Urine Nitrite Positive H, Urine Bilirubin Negative, Urine Urobilinogen Normal, Ur Leukocyte Esterase 500 H, Urine RBC 0-5 SEEN, Urine WBC 25-50 SEEN, Ur Squamous Epith Cells 0 SEEN, Urine Bacteria 2+, Urine Mucus 0 SEEN 10/10/24 03:30: Troponin T Hi Sens 2 Hr 407 H* 10/10/24 05:57: WBC 10.6, RBC 3.72 L, Hgb 10.9 L, Hct 32.7 L, MCV 87.9, MCH 29.3, MCHC 33.3, RDW Std Deviation 46.8 H, RDW Coeff of Maia 14.6, Plt Count 245, MPV 10.5, Immature Gran % (Auto) 0.300, Neut % (Auto) 86.7 H, Lymph % (Auto) 6.7 L, Winkler % (Auto) 6.1, Eos % (Auto) 0.1, Baso % (Auto) 0.1, Absolute Neuts (auto) 9.2 H, Absolute Lymphs (auto) 0.71 L, Nucleated RBC % 0, Sodium Cancelled, Potassium Cancelled, Chloride Cancelled, Carbon Dioxide Cancelled, Anion Gap Cancelled, BUN Cancelled, Creatinine Cancelled, Estim Creat Clear Calc Cancelled, Est GFR (MDRD) Non-Af Cancelled, BUN/Creatinine Ratio Cancelled, Glucose Cancelled, Calcium Cancelled, Total Bilirubin Cancelled, AST Cancelled, ALT Cancelled, Alkaline Phosphatase Cancelled, Total Protein Cancelled, Albumin Cancelled, Globulin Cancelled, Albumin/Globulin Ratio Cancelled, TSH Cancelled Micro: Microbiology 10/10/24 03:05 Mucosa - Nasopharyngeal Respiratory Panel (PCR) - Final 10/10/24 03:18 Urine Catheter - Catheter Streptococcus pneumoniae Antigen (M - Final 10/10/24 03:18 Urine Catheter - Robb Legionella Antigen - Final 10/10/24 01:40 Mucosa - Nose SARS-CoV-2, Influenza & RSV (PCR) - Final ABG Data ABG results: ABG 10/10/24 10/10/24 01:52 03:48 Specimen Type MYLES ART Sample Site Not entered L Radial pH 7.31 L Bicarbonate Actual 21.9 L Total CO2 23 Base Excess -4 L O2 Saturation 92 L O2 % 6.0 85.0 ABG pCO2 43.9 ABG pO2 72 L [place] Test Positive VBG pH 7.39 VBG pO2 18 L* VBG HCO3 27 H VBG Total CO2 28 VBG O2 Sat (Calc) 25 L VBG Base Excess 2 POC Mix VBG pCO2 Pt Tmp 44.8 O2 Delivery Device Cannula AIRVO Vent Mode Not entered Crit Call To/Read Back Yes Blood Gas Notified Whom andes Blood Gas Notified Time 01:54:30 Clinical Comments AIRVO 55L 85% Imaging Radiology Impression Chest X-Ray 10/10/24 02:00 IMPRESSION: There is now bilateral perihilar ill-defined opacities with a lower zone predominance and suggestion of possible subtle septal lines which may represent pulmonary edema within inflammatory or infectious process not excluded, clinically correlate. No focal consolidative change or evidence of pleural effusion identified.. Reading Location: [facility] Chest CTA 10/10/24 02:05 IMPRESSION: Motion artifact limits the evaluation. No evidence of filling defect to suggest pulmonary embolism. No large central or hilar saddle embolism. Overall findings are most suggestive of pulmonary edema, possible congestive heart failure, clinically correlate with small bilateral pleural effusions and adjacent areas of passive partial appearing collapse of the adjacent lower lobes. Can not entirely exclude a developing infectious process, clinically correlate. One or more dose reduction techniques were used (e.g., Automated exposure control, adjustment of the mA and/or kV according to patient size, use of iterative reconstruction technique). Reading Location: [facility] Abdomen/Pelvis CT 10/10/24 02:10 IMPRESSION: No evidence of acute intra-abdominal process. Suprapubic catheter in place within a collapsed bladder as above. No associated abscess or soft tissue gas identified. Bilateral ventral ostomies as above. No obstructive process, free air or free fluid. One or more dose reduction techniques were used (e.g., Automated exposure control, adjustment of the mA and/or kV according to patient size, use of iterative reconstruction technique). Reading Location: [facility] Charges/Coding Visit Charges Inpatient E&M: 51691 Init Hosp L3
[2024-10-10 07:50] LABS: ALB/GLOB Ratio 1.1 RATIO (0.9-2.4); AST(SGOT) 79 U/L (<=37); Alanine Aminotransfer ALT/SGPT 26 U/L (<=46); Albumin, Serum 3.7 g/dL (3.4-4.8); Alkaline Phosphatase 85 U/L (40-129); Anion Gap 16 (5-15); BUN 26 mg/dL (4-19); BUN/Creat Ratio 19.6 RATIO (10-20); Calcium,Total 8.8 mg/dL (7.6-11.0); Carbon Dioxide 21.5 mmol/L (21.0-32.0); Chloride 100 mmol/L (98-108); Creatinine, Serum 1.33 mg/dL (0.70-1.20); EST Glomerular Filtration Rate 59 (>60); Estimated Creatinine Clearance 51.08 ml/min (50-250); Globulin 3.4 g/dL (2.2-4.2); Glucose 188 mg/dL (70-99); Potassium 4.4 mmol/L (3.3-5.1); Protein, Total 7.1 g/dL (5.9-8.4); Sodium Level 138 mmol/L (133-145); Total Bilirubin 0.45 mg/dL (0.00-1.30)
--- NOTE | 2024-10-10 08:08 | PCM.PN.HOSP ---
Reason for Visit Reason for Visit: Diagnoses Sepsis, unspecified organism (10/10/24) Objective Data Objective Data Vital Signs: Vital Signs Temp Pulse Resp BP Pulse Ox O2 Del Method O2 Flow Rate 99.1 F 110 H 18 106/69 91 Bi-pap 12 10/10/24 05:37 10/10/24 07:00 10/10/24 07:00 10/10/24 07:00 10/10/24 07:00 10/10/24 07:00 10/10/24 06:00 FiO2 50 10/10/24 07:00 Oxygen Flow Rate (L/min) 12 Oxygen Delivery Method Bi-pap Weight: 146 lb 9.718 oz Body Mass Index (BMI) 23.0 Intake & Output: Intake and Output for Last 24 Hours 10/08/24 10/09/24 10/10/24 23:59 23:59 23:59 Intake Total 1287.35 / 1287.35 Output Total 500 / 500 Balance 787.35 / 787.35 Lab / Micro Data 10/10/24 05:57 10/10/24 07:18 Labs: Laboratory Results - last 24 hr 10/10/24 01:37: WBC 11.3 H, RBC 4.25 L, Hgb 12.4 L, Hct 37.4 L, MCV 88.0, MCH 29.2, MCHC 33.2, RDW Std Deviation 46.3 H, RDW Coeff of Maia 14.5, Plt Count 259, MPV 10.0, Immature Gran % (Auto) 0.400, Neut % (Auto) 87.2 H, Lymph % (Auto) 5.4 L, [place] % (Auto) 6.6, Eos % (Auto) 0.2, Baso % (Auto) 0.2, Absolute Neuts (auto) 9.9 H, Absolute Lymphs (auto) 0.61 L, Nucleated RBC % 0, PT 14.0, INR 1.1, APTT 58.1 H, Sodium 141, Potassium 4.3, Chloride 100, Carbon Dioxide 22.3, Anion Gap 18 H, BUN 26 H, Creatinine 1.39 H, Estim Creat Clear Calc 48.87 L, Est GFR (MDRD) Non-Af 56 L, BUN/Creatinine Ratio 18.4, Glucose 80, Lactic Acid 4.4 H*, Calcium 9.8, Magnesium 1.6, Total Bilirubin 0.48, Direct Bilirubin 0.22, AST 80 H, ALT 27, Alkaline Phosphatase 103, Ammonia 12.6 L, Troponin T High Sens 409 H*, NT pro BNP II 2932 H, Total Protein 8.0, Albumin 4.1, Globulin 3.9 10/10/24 03:18: Urine Color Yellow, Urine Clarity Cloudy, Urine pH 5.0, Ur Specific [place] 1.015, Urine Protein 100 H, Urine Glucose (UA) Normal, Urine Ketones Negative, Urine Occult Blood 150 H, Urine Nitrite Positive H, Urine Bilirubin Negative, Urine Urobilinogen Normal, Ur Leukocyte Esterase 500 H, Urine RBC 0-5 SEEN, Urine WBC 25-50 SEEN, Ur Squamous Epith Cells 0 SEEN, Urine Bacteria 2+, Urine Mucus 0 SEEN 10/10/24 03:30: Troponin T Hi Sens 2 Hr 407 H* 10/10/24 05:57: WBC 10.6, RBC 3.72 L, Hgb 10.9 L, Hct 32.7 L, MCV 87.9, MCH 29.3, MCHC 33.3, RDW Std Deviation 46.8 H, RDW Coeff of Maia 14.6, Plt Count 245, MPV 10.5, Immature Gran % (Auto) 0.300, Neut % (Auto) 86.7 H, Lymph % (Auto) 6.7 L, [place] % (Auto) 6.1, Eos % (Auto) 0.1, Baso % (Auto) 0.1, Absolute Neuts (auto) 9.2 H, Absolute Lymphs (auto) 0.71 L, Nucleated RBC % 0, Sodium Cancelled, Potassium Cancelled, Chloride Cancelled, Carbon Dioxide Cancelled, Anion Gap Cancelled, BUN Cancelled, Creatinine Cancelled, Estim Creat Clear Calc Cancelled, Est GFR (MDRD) Non-Af Cancelled, BUN/Creatinine Ratio Cancelled, Glucose Cancelled, Calcium Cancelled, Total Bilirubin Cancelled, AST Cancelled, ALT Cancelled, Alkaline Phosphatase Cancelled, Total Protein Cancelled, Albumin Cancelled, Globulin Cancelled, Albumin/Globulin Ratio Cancelled, TSH Cancelled 10/10/24 07:18: Sodium 138, Potassium 4.4, Chloride 100, Carbon Dioxide 21.5, Anion Gap 16 H, BUN 26 H, Creatinine 1.33 H, Estim Creat Clear Calc 51.08, Est GFR (MDRD) Non-Af 59 L, BUN/Creatinine Ratio 19.6, Glucose 188 H, Calcium 8.8, Total Bilirubin 0.45, AST 79 H, ALT 26, Alkaline Phosphatase 85, Total Protein 7.1, Albumin 3.7, Globulin 3.4, Albumin/Globulin Ratio 1.1, TSH 1.590 Micro: Microbiology 10/10/24 03:05 Mucosa - Nasopharyngeal Respiratory Panel (PCR) - Final 10/10/24 03:18 Urine Catheter - Catheter Streptococcus pneumoniae Antigen (M - Final 10/10/24 03:18 Urine Catheter - Robb Legionella Antigen - Final 10/10/24 01:40 Mucosa - Nose SARS-CoV-2, Influenza & RSV (PCR) - Final ABG Data ABG results: ABG 10/10/24 10/10/24 01:52 03:48 Specimen Type MYLES ART Sample Site Not entered L Radial pH 7.31 L Bicarbonate Actual 21.9 L Total CO2 23 Base Excess -4 L O2 Saturation 92 L O2 % 6.0 85.0 ABG pCO2 43.9 ABG pO2 72 L [place] Test Positive VBG pH 7.39 VBG pO2 18 L* VBG HCO3 27 H VBG Total CO2 28 VBG O2 Sat (Calc) 25 L VBG Base Excess 2 POC Mix VBG pCO2 Pt Tmp 44.8 O2 Delivery Device Cannula AIRVO Vent Mode Not entered Crit Call To/Read Back Yes Blood Gas Notified Whom andes Blood Gas Notified Time 01:54:30 Clinical Comments AIRVO 55L 85% Radiography Diagnostic Testing: Radiology Impression Chest X-Ray 10/10/24 02:00 IMPRESSION: There is now bilateral perihilar ill-defined opacities with a lower zone predominance and suggestion of possible subtle septal lines which may represent pulmonary edema within inflammatory or infectious process not excluded, clinically correlate. No focal consolidative change or evidence of pleural effusion identified.. Reading Location: [id number] Chest CTA 10/10/24 02:05 IMPRESSION: Motion artifact limits the evaluation. No evidence of filling defect to suggest pulmonary embolism. No large central or hilar saddle embolism. Overall findings are most suggestive of pulmonary edema, possible congestive heart failure, clinically correlate with small bilateral pleural effusions and adjacent areas of passive partial appearing collapse of the adjacent lower lobes. Can not entirely exclude a developing infectious process, clinically correlate. One or more dose reduction techniques were used (e.g., Automated exposure control, adjustment of the mA and/or kV according to patient size, use of iterative reconstruction technique). Reading Location: [facility] Abdomen/Pelvis CT 10/10/24 02:10 IMPRESSION: No evidence of acute intra-abdominal process. Suprapubic catheter in place within a collapsed bladder as above. No associated abscess or soft tissue gas identified. Bilateral ventral ostomies as above. No obstructive process, free air or free fluid. One or more dose reduction techniques were used (e.g., Automated exposure control, adjustment of the mA and/or kV according to patient size, use of iterative reconstruction technique). Reading Location: [facility] Physical Exam Narrative Seen and examined. Patient on BiPAP mask. He is trying to pull BiPAP mask, irritable Physical exam: General: Awake, irritable, confused, orientation cannot be ascertained HEENT: Atraumatic, EOMI, Normocephalic Oral: BiPAP Neck: Supple, No JVD, Negative Carotid Bruits Chest wall/Lungs: Air entry diminished in bilateral lung bases. Bilateral coarse crepitations Cardiovascular: Sinus rhythm, Normal S1, Normal S2, No M/G/R Abdomen: Bowel Sounds Present, Soft, ventral ostomy. Surgical dressing. Dry : Suprapubic catheter. Clear urine on the tube No suprapubic tenderness. Extremities: Mild pedal edema, Capillary Refill Less than 3 Seconds Skin: No rashes, No breakdown Musculoskeletal: No Tenderness to Palpation of Joints or Extremities ROM limited. Muscle power could not be seen Neurological: Confused and disoriented. Detailed neuroexam unobtainable Psych/Mental Status: 80 Assessment & Plan Assessment/Plan (1) Sepsis: PLAN: Plan The patient is a 68 y/o M who is being admitted in ICU after patient's family brought to ED for confusion along with low-grade fever and altered mental status. He also had fatigue muscle aches and headache for last 12 hours. #1. Suspected sepsis due to pneumonia/complicated UTI: Patient is being admitted in ICU. The patient presented with suspected sepsis with clinical indicators of tachycardia, tachypnea, hypoxia, mild leukocytosis due to complicated CAUTI (suprapubic catheter) and possible pneumonia with acute sepsis-related organ dysfunction as evidenced by lactic acidosis, drop in SBP from baseline about 147-150 mmHg to 100 -106 mmHg and acute hypoxic respiratory failure requiring BiPAP/Airvo. Patient did not require pressors yet. Chest x-ray CT scan reviewed and shows mainly pulmonary edema with no filling defect to suggest pulmonary embolism. Small bilateral pleural effusion with partial collapse of adjacent lower lobes. Possible infectious process/pneumonia Patient not candidate for sepsis protocol fluid because of pulmonary edema Patient on IV vancomycin and Zosyn. Packaging Mechanic consulted. Infectious workup ordered. 2. Acute hypoxic respiratory failure: Patient was 86% on room air. ABG shows 7.31/40/72 on 85% FiO2 Airvo suggestive of increased AA gradient. Bicarb 22. Anion gap 16 creatinine therefore increased anion gap metabolic acidosis. #2. Elevated troponin, potential NSTEMI type II most likely demand ischemia: Twelve-lead EKG shows sinus rhythm, mild ST depression V2-V5, T wave inversion. Chest x-ray suggestive of pulmonary edema. Troponins elevated but [place], 409, 407 and 11/12/1976. proBNP hide about 3000. As Patient on IV heparin drip, aspirin and Plavix. Community Specialist consulted. 2D echo ordered. ECHO noted 05/28/2024 with LVEF 60%, moderate focal MV calcification, bileaflet, mild MVI, mild TBI, moderate diffuse aortic valve calcification with sclerosis without stenosis #3. Acute kidney injury on CKD 2: admission BUN/Cr 26/1.39, GFR 56, baseline renal function primarily 0.6-0.7. Hold nephrotoxic #4. CAD and peripheral arterial disease and carotid disease status post right CEA and history of stroke/CVA: Status post CABG x 5 with ZUNIGA to LAD and D1, free KIMBERLYN to PDA, SVG to ramus, SVG to OM1 2007 and PCI including [id number] 2014: Continue aspirin, Plavix, statin, Coreg. Patient not on ILDA/ARB because of MADELEINE. Patient also has PAD with PTCA left anterior tibial and peroneal artery. 5. Hypertension: Continue home regimen including amlodipine, Coreg, IV Lasix as able, PRN hydralazine. 6. Hyperlipidemia: Continue home statin regimen. Lipid profile ordered for tomorrow a.m. 7. Diabetes mellitus type II with chronic neuropathy: Accu-Chek before meals and at bedtime with Humalog sliding scale coverage and hypoglycemia protocol. Continue gabapentin 8. Anxiety and depression: On duloxetine 9. Chronic normocytic anemia: Admission hemoglobin 12.4, MCV 88, baseline hemoglobin 10-11 primarily. On beta 10. History colorectal cancer: Patient s/p resection with radiation and chemotherapy in 2020, has colostomy 11. ALEJANDRO: Normally uses CPAP nightly, initially in the ED transitioned to high flow/Airvo, given overload concern transitioned to BIPAP. 12. BPH with obstructive pathology with chronic suprapubic catheter: On Flomax. Suspected UTI, OT 14. GERD: continue patient on PPI. 15DVT prophylaxis: continue heparin drip. . 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 Discussed CODE status at length including difference between FULL code, DNR-CCA and DNR-CC status. Following discussions about the differences in these status, requested DNR-CCA, no intubation. Verified CODE STATUS and gave example including what patient would want if his heart was still beating but he stopped breathing and even the situation he and his declined intubation. Charges/Coding Visit Charges Inpatient E&M: 51119 Subs Hosp L3
[2024-10-10 08:13] LABS: Troponin T High Sens 4 HR 477 ng/L (<=22)
[2024-10-10] MEDS: 0.9% Saline Lock 10 ML Syringe IV ×2 (10:08→10:41)
[2024-10-10] MEDS: Carvedilol 6.25 MG Tablet PO ×2 (10:33→17:46)
[2024-10-10] MEDS: Aspirin 81 MG TAB.CHEW PO (10:33)
[2024-10-10] MEDS: DULoxetine Hcl 30 MG Capsule PO (10:34)
[2024-10-10] MEDS: Pantoprazole Sodium 40 MG Tablet PO (10:35)
[2024-10-10] MEDS: amLODIPine 10 MG Tablet PO (10:36)
[2024-10-10] MEDS: Potassium Chloride Oral Tablet 20 MEQ PO (10:38)
[2024-10-10] MEDS: Clopidogrel Bisulfate 75 MG Tablet PO (10:38)
--- NOTE | 2024-10-10 10:39 | PCM.CONS.C ---
Assessment & Plan Assessment/Plan (1) Non-ST elevated myocardial infarction (non-STEMI): PLAN: Echocardiogram shows ejection fraction of 35 to 40%. Basal wall segments are severely hypokinetic to akinetic universally. Only apex is bertha well. This is suggestive that the ZUNIGA to the LAD is patent with doubtful patency of the other grafts. Continue aspirin and Plavix. Heparin infusion. Beta-blockers. Recommend coronary angiography with possible revascularization prior to discharge home. We will likely undertake this once he is stable from his UTI/sepsis and his fluid volume status is improved from his congestive heart failure. (2) Coronary artery disease: PLAN: See #1 above. (3) Combined systolic and diastolic congestive heart failure: PLAN: Diuretics. Start on Lasix IV infusion. Continue beta-blockers. Spironolactone. ACEI. SGLT2 inhibitors. (4) UTI (urinary tract infection): PLAN: On antibiotics. (5) Sepsis: PLAN: As per intensive care. (6) Acidosis, lactic: PLAN: As per intensive care. HPI Consult Data Date of Consult: 10/10/24 HPI Narrative Reason for Consultation: NSTEMI HPI Narrative: This gentleman has past medical history significant for coronary artery disease status post CABG. Last coronary angiography in 2014 which revealed total occlusion of the [place] mid LAD, proximal left circumflex and proximal RCA. ZUNIGA to LAD was patent. Free KIMBERLYN to the right PDA was patent. Vein graft to the ramus intermedius was patent with critical lesion in the vein graft to the diagonal branch. Percutaneous intervention with drug-eluting stent was performed on the vein graft to the diagonal branch at the time. Patient presented to the hospital complaining of generalized weakness and aches and pains. Also mental status changes with intermittent confusion. According to his family, he was also running low-grade temperature at home. He has a chronic indwelling suprapubic urinary catheter. Workup revealed diagnosis of UTI, bilateral pulmonary vascular congestion with possible underlying pneumonia as well, and elevated troponin. No history of chest pain. Per patient, he does not have any shortness of breath though he was noted in the ER to be hypoxic. Patient denies orthopnea or PND. [facility] Medical History Ileostomy present Colostomy in place Orthostatic hypotension Essential hypertension Loss of hearing Wears glasses Cancer Depression Insulin dependent diabetes mellitus Walker as ambulation aid Arthritis High cholesterol Restless legs Injury of back Injury of head and neck Syncope Dietary restriction Gastric reflux Non-smoker CPAP (continuous positive airway pressure) dependence Shortness of breath on exertion Leg cramps History of pain when walking History of echocardiogram History of stress test Cardiology follow-up encounter History of heart attack Colorectal cancer Dysphagia invasive rectal adenocarcinoma Diabetic neuropathy Restrictive lung disease Type 2 diabetes mellitus Anxiety disorder GERD (gastroesophageal reflux disease) Carotid artery disease Obstructive sleep apnea 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 Peripheral vascular occlusive disease CVA (cerebral vascular accident) ALEJANDRO (obstructive sleep apnea) Dyslipidemia HTN (hypertension) Home Medications ?Medication ?Instructions ?Recorded ?Last Taken ?Type aspirin 81 mg chewable tablet 81 mg PO DAILY heart health 03/20/16 03/10/23 History insulin lispro 100 unit/mL 1 sliding scale dose subcut TIDCM 09/26/21 03/10/23 History subcutaneous pen (Humalog KwikPen diabetes (U-100) Insulin) duloxetine 60 mg capsule,delayed 30 mg (1/2 x 60 mg) PO DAILY 03/12/23 03/10/23 Rx release depression #30 caps clopidogrel 75 mg tablet 75 mg PO DAILY blood thinner #90 10/10/23 Unknown Rx tabs pantoprazole 40 mg tablet,delayed 40 mg PO DAILY GERD 12/01/23 Unknown History release sodium chloride 0.9 % 100 ea IV .continuous fluid 12/02/23 Unknown History imbalance amlodipine 10 mg tablet 10 mg PO DAILY BLOOD PRESSURE 01/31/24 Unknown History calcium carbonate (Tums) 300 mg PO TID PRN dyspepsia 01/31/24 Unknown History melatonin 3 mg tablet 3 mg PO QHS 01/31/24 Unknown History simethicone 125 mg chewable tablet 125 mg PO 4X/DAY PRN abdominal 01/31/24 Unknown History distention sodium chloride 0.65 % nasal spray 2 spray intranasal Q4H PRN dry 01/31/24 Unknown History aerosol ([place] Saline) nasal passages tamsulosin 0.4 mg capsule (Flomax) 0.8 mg PO QHS 01/31/24 Unknown History carvedilol 6.25 mg tablet 6.25 mg PO BID #0 tabs 02/09/24 Unknown Rx acetaminophen 325 mg capsule 650 mg PO Q6H PRN pain 05/21/24 Unknown History atorvastatin 20 mg tablet 20 mg PO QDAY 05/21/24 Unknown History insulin glargine-yfgn 100 unit/mL 50 unit subcut BID 05/21/24 Unknown History (3 mL) subcutaneous pen (Semglee (insulin glargine-yfgn) Pen) gabapentin 300 mg capsule 300 mg PO DAILY 08/25/24 Unknown History metformin 500 mg tablet,extended 500 mg PO BID 08/25/24 Unknown History release 24 hr potassium chloride 20 mEq 20 meq PO DAILY 08/25/24 Unknown History tablet,extended release(part/cryst) (Klor-Con M) Allergy/AdvReac Type Severity Reaction Status Date / Time No Known Allergies Allergy Verified 10/10/24 01:30 Family History Father CAD (coronary artery disease) Hypertension Cancer leukemia Diabetes Heart disease High cholesterol Mother CVA (cerebral vascular accident) Diabetes Breast cancer Brother Diabetes Surgical History History of bilateral cataract extraction History of left heart catheterization (LHC) (~01/22/15) History of right and left heart catheterization (LHC) (~12/25/14) History of eye surgery PTCA Left Anterior Tibial and Paroneal Artery History of coronary artery stent placement (01/02/15) H/O coronary artery bypass surgery (05/30/08) History of right-sided carotid endarterectomy Excision Max.Zygoma Face Tumor History of tonsillectomy History of herniorrhaphy Social History (Updated 10/10/24 @ 03:[address] Kendra Yuan MD) household members: spouse Smoking Status: Never smoker alcohol intake: never substance use type: does not use caffeine: Yes what type of physical activity do you participate in: none Physical Exam Narrative Patient appears mildly short of breath. Lying flat in the bed. Heart sounds 1 and 2 noted. S3 gallop. Chest with decreased breath sounds bilateral bases. Awake, alert. No ankle edema. Risk Stratification Risk Stratification Applicable: No Objective Data Vital Signs: Vital Signs Temp Pulse Resp BP Pulse Ox O2 Del Method O2 Flow Rate 99.1 F 111 H 15 106/69 96 Bi-pap 12 10/10/24 05:37 10/10/24 08:56 10/10/24 08:56 10/10/24 07:00 10/10/24 08:56 10/10/24 07:00 10/10/24 06:00 FiO2 50 10/10/24 08:56 Oxygen Flow Rate (L/min) 12 Oxygen Delivery Method Bi-pap Weight: 146 lb 9.718 oz Body Mass Index (BMI) 23.0 Intake & Output: Intake and Output for Last 24 Hours 10/08/24 10/09/24 10/10/24 23:59 23:59 23:59 Intake Total 1287.35 / 1287.35 Output Total 500 / 500 Balance 787.35 / 787.35 Lab / Micro Data Attestation: I reviewed the patient's lab results. 10/10/24 05:57 10/10/24 07:18 Labs: Laboratory Results - last 24 hr 10/10/24 01:37: WBC 11.3 H, RBC 4.25 L, Hgb 12.4 L, Hct 37.4 L, MCV 88.0, MCH 29.2, MCHC 33.2, RDW Std Deviation 46.3 H, RDW Coeff of Maia 14.5, Plt Count 259, MPV 10.0, Immature Gran % (Auto) 0.400, Neut % (Auto) 87.2 H, Lymph % (Auto) 5.4 L, Mclennan % (Auto) 6.6, Eos % (Auto) 0.2, Baso % (Auto) 0.2, Absolute Neuts (auto) 9.9 H, Absolute Lymphs (auto) 0.61 L, Nucleated RBC % 0, PT 14.0, INR 1.1, APTT 58.1 H, Sodium 141, Potassium 4.3, Chloride 100, Carbon Dioxide 22.3, Anion Gap 18 H, BUN 26 H, Creatinine 1.39 H, Estim Creat Clear Calc 48.87 L, Est GFR (MDRD) Non-Af 56 L, BUN/Creatinine Ratio 18.4, Glucose 80, Lactic Acid 4.4 H*, Calcium 9.8, Magnesium 1.6, Total Bilirubin 0.48, Direct Bilirubin 0.22, AST 80 H, ALT 27, Alkaline Phosphatase 103, Ammonia 12.6 L, Troponin T High Sens 409 H*, NT pro BNP II 2932 H, Total Protein 8.0, Albumin 4.1, Globulin 3.9 10/10/24 03:18: Urine Color Yellow, Urine Clarity Cloudy, Urine pH 5.0, Ur Specific [place] 1.015, Urine Protein 100 H, Urine Glucose (UA) Normal, Urine Ketones Negative, Urine Occult Blood 150 H, Urine Nitrite Positive H, Urine Bilirubin Negative, Urine Urobilinogen Normal, Ur Leukocyte Esterase 500 H, Urine RBC 0-5 SEEN, Urine WBC 25-50 SEEN, Ur Squamous Epith Cells 0 SEEN, Urine Bacteria 2+, Urine Mucus 0 SEEN 10/10/24 03:30: Troponin T Hi Sens 2 Hr 407 H* 10/10/24 05:57: WBC 10.6, RBC 3.72 L, Hgb 10.9 L, Hct 32.7 L, MCV 87.9, MCH 29.3, MCHC 33.3, RDW Std Deviation 46.8 H, RDW Coeff of Maia 14.6, Plt Count 245, MPV 10.5, Immature Gran % (Auto) 0.300, Neut % (Auto) 86.7 H, Lymph % (Auto) 6.7 L, Mclennan % (Auto) 6.1, Eos % (Auto) 0.1, Baso % (Auto) 0.1, Absolute Neuts (auto) 9.2 H, Absolute Lymphs (auto) 0.71 L, Nucleated RBC % 0, Sodium Cancelled, Potassium Cancelled, Chloride Cancelled, Carbon Dioxide Cancelled, Anion Gap Cancelled, BUN Cancelled, Creatinine Cancelled, Estim Creat Clear Calc Cancelled, Est GFR (MDRD) Non-Af Cancelled, BUN/Creatinine Ratio Cancelled, Glucose Cancelled, Calcium Cancelled, Total Bilirubin Cancelled, AST Cancelled, ALT Cancelled, Alkaline Phosphatase Cancelled, Total Protein Cancelled, Albumin Cancelled, Globulin Cancelled, Albumin/Globulin Ratio Cancelled, TSH Cancelled 10/10/24 07:18: Sodium 138, Potassium 4.4, Chloride 100, Carbon Dioxide 21.5, Anion Gap 16 H, BUN 26 H, Creatinine 1.33 H, Estim Creat Clear Calc 51.08, Est GFR (MDRD) Non-Af 59 L, BUN/Creatinine Ratio 19.6, Glucose 188 H, Calcium 8.8, Total Bilirubin 0.45, AST 79 H, ALT 26, Alkaline Phosphatase 85, Troponin T Hi Sens 4Hr 477 H*, Total Protein 7.1, Albumin 3.7, Globulin 3.4, Albumin/Globulin Ratio 1.1, TSH 1.590 10/10/24 10:05: APTT 190.0 H* Micro: Microbiology 10/10/24 03:05 Mucosa - Nasopharyngeal Respiratory Panel (PCR) - Final 10/10/24 03:18 Urine Catheter - Catheter Streptococcus pneumoniae Antigen (M - Final 10/10/24 03:18 Urine Catheter - Robb Legionella Antigen - Final 10/10/24 01:40 Mucosa - Nose SARS-CoV-2, Influenza & RSV (PCR) - Final ABG Data ABG results: ABG 10/10/24 10/10/24 01:52 03:48 Specimen Type MYLES ART Sample Site Not entered L Radial pH 7.31 L Bicarbonate Actual 21.9 L Total CO2 23 Base Excess -4 L O2 Saturation 92 L O2 % 6.0 85.0 ABG pCO2 43.9 ABG pO2 72 L [place] Test Positive VBG pH 7.39 VBG pO2 18 L* VBG HCO3 27 H VBG Total CO2 28 VBG O2 Sat (Calc) 25 L VBG Base Excess 2 POC Mix VBG pCO2 Pt Tmp 44.8 O2 Delivery Device Cannula AIRVO Vent Mode Not entered Crit Call To/Read Back Yes Blood Gas Notified Whom andes Blood Gas Notified Time 01:54:30 Clinical Comments AIRVO 55L 85% Rhythm Strip Rhythm Strip: Sinus Tach Cardiology Labs/Tests 10/10/24 01:37: WBC 11.3 H, RBC 4.25 L, Hgb 12.4 L, Hct 37.4 L, MCV 88.0, MCH 29.2, MCHC 33.2, Plt Count 259, MPV 10.0, Immature Gran % (Auto) 0.400, Neut % (Auto) 87.2 H, Lymph % (Auto) 5.4 L, Mclennan % (Auto) 6.6, Eos % (Auto) 0.2, Baso % (Auto) 0.2, Absolute Neuts (auto) 9.9 H, Nucleated RBC % 0, PT 14.0, INR 1.1, APTT 58.1 H, Sodium 141, Potassium 4.3, Chloride 100, Carbon Dioxide 22.3, Anion Gap 18 H, BUN 26 H, Creatinine 1.39 H, Est GFR (MDRD) Non-Af 56 L, BUN/Creatinine Ratio 18.4, Glucose 80, Lactic Acid 4.4 H*, Calcium 9.8, Magnesium 1.6, Total Bilirubin 0.48, Direct Bilirubin 0.22 10/10/24 01:52: VBG pH 7.39, VBG pO2 18 L*, VBG HCO3 27 H, VBG O2 Sat (Calc) 25 L, VBG Base Excess 2 10/10/24 03:18: Urine Color Yellow, Urine Clarity Cloudy, Urine pH 5.0, Ur Specific [place] 1.015, Urine Protein 100 H, Urine Glucose (UA) Normal, Urine Ketones Negative, Urine Occult Blood 150 H, Urine Nitrite Positive H, Urine Bilirubin Negative, Urine Urobilinogen Normal, Ur Leukocyte Esterase 500 H, Urine RBC 0-5 SEEN, Urine WBC 25-50 SEEN 10/10/24 03:48: pH 7.31 L, Bicarbonate Actual 21.9 L, Base Excess -4 L, O2 Saturation 92 L, ABG pCO2 43.9, ABG pO2 72 L, [place]o Test Positive 10/10/24 05:57: WBC 10.6, RBC 3.72 L, Hgb 10.9 L, Hct 32.7 L, MCV 87.9, MCH 29.3, MCHC 33.3, Plt Count 245, MPV 10.5, Immature Gran % (Auto) 0.300, Neut % (Auto) 86.7 H, Lymph % (Auto) 6.7 L, Mclennan % (Auto) 6.1, Eos % (Auto) 0.1, Baso % (Auto) 0.1, Absolute Neuts (auto) 9.2 H, Nucleated RBC % 0, Sodium Cancelled, Potassium Cancelled, Chloride Cancelled, Carbon Dioxide Cancelled, Anion Gap Cancelled, BUN Cancelled, Creatinine Cancelled, Est GFR (MDRD) Non-Af Cancelled, BUN/Creatinine Ratio Cancelled, Glucose Cancelled, Calcium Cancelled, Total Bilirubin Cancelled 10/10/24 07:18: Sodium 138, Potassium 4.4, Chloride 100, Carbon Dioxide 21.5, Anion Gap 16 H, BUN 26 H, Creatinine 1.33 H, Est GFR (MDRD) Non-Af 59 L, BUN/Creatinine Ratio 19.6, Glucose 188 H, Calcium 8.8, Total Bilirubin 0.45 10/10/24 10:05: APTT 190.0 H* Rhythm: Sinus tachycardia. EKG: Normal sinus rhythm. Ischemic ST changes in inferior and anterior leads. ECHO: Reviewed. EF 35 to 40%. Moderate MR. Moderate to severe TR. Stress Test: Cardiac Cath: PCI: CT Surgery: Holter monitor: EPS: PPM: CXR: Chest CT Scan: Radiography Diagnostic Testing: Radiology Impression Chest X-Ray 10/10/24 02:00 IMPRESSION: There is now bilateral perihilar ill-defined opacities with a lower zone predominance and suggestion of possible subtle septal lines which may represent pulmonary edema within inflammatory or infectious process not excluded, clinically correlate. No focal consolidative change or evidence of pleural effusion identified.. Reading Location: [facility] Chest CTA 10/10/24 02:05 IMPRESSION: Motion artifact limits the evaluation. No evidence of filling defect to suggest pulmonary embolism. No large central or hilar saddle embolism. Overall findings are most suggestive of pulmonary edema, possible congestive heart failure, clinically correlate with small bilateral pleural effusions and adjacent areas of passive partial appearing collapse of the adjacent lower lobes. Can not entirely exclude a developing infectious process, clinically correlate. One or more dose reduction techniques were used (e.g., Automated exposure control, adjustment of the mA and/or kV according to patient size, use of iterative reconstruction technique). Reading Location: [facility] Abdomen/Pelvis CT 10/10/24 02:10 IMPRESSION: No evidence of acute intra-abdominal process. Suprapubic catheter in place within a collapsed bladder as above. No associated abscess or soft tissue gas identified. Bilateral ventral ostomies as above. No obstructive process, free air or free fluid. One or more dose reduction techniques were used (e.g., Automated exposure control, adjustment of the mA and/or kV according to patient size, use of iterative reconstruction technique). Reading Location: [facility] Echocardiogram 10/10/24 05:23 Interpretation Summary Severe LV segmental wall motion. Basal portions of the lateral wall, inferior wall, anterior wall, inferior and anterior septum are severely hypokinetic to akinetic. Only the apex is bertha well. Estimated LVEF 35 to 40%. Stage III diastolic dysfunction. The left atrium is severely enlarged. The right atrium is mildly enlarged. Moderate (2+) mitral valve insufficiency. Moderate to severe tricuspid valve insufficiency. Right ventricular systolic pressure estimated at 46 mmHg. Moderate to severe aortic valve calcification. Aortic valve sclerosis with no stenosis. Valve area 1.9 cm?? by planimetry. Ordering Physician: Kendra Yuan Referring Physician: Kendy Modi Performed By: Raya Ma, JOSE ELIAS, RVT
[2024-10-10] MEDS: Gabapentin 300 MG Capsule PO (10:49)
[2024-10-10] MEDS: ALPRAZolam 0.25 MG Tablet PO ×2 (11:42→22:07)
[2024-10-10] MEDS: Empagliflozin 10 MG Tablet PO (11:42)
[2024-10-10] MEDS: Spironolactone 25 MG Tablet 12.5 MG PO (11:42)
[2024-10-10] MEDS: Furosemide 500 MG in Empty Viaflex 50 mL 1 EACH CONT INF (12:11)
--- NOTE | 2024-10-10 12:48 | CASEMGMT ---
RASHI ARVIZU to pt room, pt nurse asks not to wake pt and reports he is confused. [id number] NOLBERTO Assessment: TC to pt , RN NOLBERTO introduced self and role at [facility], pt voices understanding and consents to assessment. Care providers, pharmacy, and demographics verified/updated. Admitting Dx: resp failure, hf exac, sepsis, UTI, MADELEINE, ?pna Strata Score: 2 PCP:Ly Specialists:Zohaib, GI; Luis, cardio; Masci, onc Preferred Pharmacy: [facility] Insurance: NICOLAS Whitten Prescription Benefit: yes LNOK: Emelia Haji, ; Agustin Haji, son Living Arrangements: Pt lives with in a single story home with 3 steps to enter. states pt needs help to get in shower and then he can shower himself and dress himself. Pt prepares meals, does laundry and gets groceries. Transportation: Pt transports pt to medical appts. DME:walker, w/c, CPAP, BGM with sufficient strips and lancets, hospital bed, trf bench HHC/SNF: Pt is active with [facility] for SN and therapy and has been to [facility] in the past. Pt would like pt to return home with [facility]. She denies need for list of other options. She states they change pt suprapubic cath. She states pt is not typically confused. Pt states no further concerns/needs. CM to follow. Advised pt to ask CM if any further questions/concerns/needs arise, voices understanding. Pt Goal:Home with [facility] Plan: Home with [facility] pending course of hospitalization and therapy christina Richard RN, CM Referral sent to [facility] via [facility] at this time to make aware pt is hospitalized.
[2024-10-10] MEDS: Vancomycin IV 500 MG/100 ML BAG 100 MG IV (14:32)
[2024-10-10] MEDS: Insulin Lispro 100 UNIT/ML INSULN.PEN SC ×2 (16:09→20:31)
[2024-10-10 16:23] LABS: Bedside Glucose 223 mg/dL (74-106)
[2024-10-10] MEDS: Nitroglycerin Oint 1 INCH PACKET 0.5 INCH TD (17:46)
[2024-10-10 19:00] LABS: Partial Thromboplast Time 98.3 Seconds (24.1-36.2)
[2024-10-10] MEDS: Tamsulosin HCl 0.4 MG Capsule 0.8 MG PO (20:31)
[2024-10-10] MEDS: Lisinopril 2.5 MG Tablet PO (20:32)
[2024-10-10] MEDS: Atorvastatin Calcium 20 MG Tablet PO (20:32)
[2024-10-10] MEDS: MELATONIN 3 MG TABLET PO (20:33)
[2024-10-10 21:43] LABS: Bedside Glucose 174 mg/dL (74-106)
[2024-10-11] VITALS (22 sets, daily range): BP systolic 82–108; BP diastolic 52–67; PULSE 71–89; RESP 12–21; TEMP 36.6–37.8; O2SAT 90–99; BMI 22.4
[2024-10-11 02:15] LABS: Absolute Lymphocyte Count 0.78 X10^3/uL (0.83-4.51); Absolute Neutrophil Count 5.7 X10^3/uL (2.0-7.7); Basophil# 0.02 X10^3/uL; Basophil% 0.3 % (0-1); Hematocrit 27.3 % (40-54); Hemoglobin 8.9 g/dL (13.0-16.5); Lymphocyte # 0.78 X10^3/ul (0.83-4.51); Lymphocyte % 10.4 % (19-41); Mean Corp Hgb Conc 32.6 g/dL (32-36); Mean Corpuscular Hgb 28.9 pg (27.0-32.0); Mean Corpuscular Volume 88.6 fL (80-94); Mean Platelet Vol. 10.2 fl (6.2-12.0); Monocyte# 0.99 X10^3/uL; Monocyte% 13.3 % (0-10); NRBC Flagged by Analyzer 0 % (0-5); Neutrophil # 5.65 X10^3/uL (2.7-7.7); Neutrophil % 75.6 % (47-70); Platelet Count 210 K/mm3 (150-450); RBC Distribution Width SD 48.5 fl (35.1-43.9); Red Blood Count 3.08 M/mm3 (4.6-6.2); White Blood Count 7.5 K/mm3 (4.4-11.0)
[2024-10-11 02:27] LABS: Partial Thromboplast Time 64.6 Seconds (24.1-36.2)
[2024-10-11 02:48] LABS: Cholesterol 94 mg/dL (<=200); High Density Lipoprotein 31 mg/dL; Low Density Lipoprotein Calc. 43 mg/dL; Magnesium 1.5 mg/dL (1.5-2.2); Triglycerides 101 mg/dL; Very Low Density Lipoprotein 20 mg/dL (5-40)
[2024-10-11 03:16] LABS: ALB/GLOB Ratio 1.1 RATIO (0.9-2.4); AST(SGOT) 263 U/L (<=37); Alanine Aminotransfer ALT/SGPT 145 U/L (<=46); Albumin, Serum 3.3 g/dL (3.4-4.8); Alkaline Phosphatase 72 U/L (40-129); Anion Gap 17 (5-15); BUN 35 mg/dL (4-19); BUN/Creat Ratio 16.6 RATIO (10-20); Calcium,Total 7.4 mg/dL (7.6-11.0); Carbon Dioxide 21.8 mmol/L (21.0-32.0); Chloride 101 mmol/L (98-108); Creatinine, Serum 2.11 mg/dL (0.70-1.20); EST Glomerular Filtration Rate 34 (>60); Glucose 167 mg/dL (70-99); Potassium 4.2 mmol/L (3.3-5.1); Protein, Total 6.2 g/dL (5.9-8.4); Sodium Level 139 mmol/L (133-145); Total Bilirubin 0.42 mg/dL (0.00-1.30)
[2024-10-11] MEDS: 0.9% Saline Lock 10 ML Syringe IV (03:18)
[2024-10-11] MEDS: Vancomycin IV 500 MG/100 ML BAG 100 MG IV (03:18)
[2024-10-11] MEDS: Piperacil/Tazobactam 3.375 GM in 0.9% Normal Saline (50mL MB+) 50 ML IV (05:36)
--- NOTE | 2024-10-11 08:40 | PN.HOSP_ITS ---
Reason for Visit Reason for Visit: Diagnoses Sepsis, unspecified organism (10/10/24) Acidosis, unspecified (10/10/24) Non-ST elevation (NSTEMI) myocardial infarction (10/10/24) Atherosclerotic heart disease of rosebud coronary artery without angina pectoris (10/10/24) Unspecified combined systolic (congestive) and diastolic (congestive) heart failure (10/10/24) Acute respiratory failure with hypoxia (10/10/24) Acute kidney failure, unspecified (10/10/24) Urinary tract infection, site not specified (10/10/24) Objective Data Objective Data Vital Signs: Vital Signs Temp Pulse Resp BP Pulse Ox O2 Del Method O2 Flow Rate 98.5 F 73 21 H 97/59 L 97 Nasal Cannula 8 10/11/24 04:00 10/11/24 07:00 10/11/24 07:00 10/11/24 07:00 10/11/24 07:00 10/11/24 07:00 10/11/24 07:00 FiO2 40 10/11/24 05:00 Oxygen Flow Rate (L/min) 8 Oxygen Delivery Method Nasal Cannula Weight: 143 lb 8.335 oz Body Mass Index (BMI) 22.4 Intake & Output: Intake and Output for Last 24 Hours 10/09/24 10/10/24 10/11/24 23:59 23:59 23:59 Intake Total 2069.17 / 2069.17 282.42 / 282.42 Output Total 1650 / 1650 450 / 450 Balance 419.17 / 419.17 -167.58 / -167.58 Lab / Micro Data 10/11/24 02:00 10/11/24 02:00 Labs: Laboratory Results - last 24 hr 10/10/24 10:05: APTT 190.0 H* 10/10/24 16:03: POC Glucose 223 H 10/10/24 18:33: APTT 98.3 H* 10/10/24 20:29: POC Glucose 174 H 10/11/24 02:00: WBC 7.5, RBC 3.08 L, Hgb 8.9 L, Hct 27.3 L, MCV 88.6, MCH 28.9, MCHC 32.6, RDW Std Deviation 48.5 H, RDW Coeff of Maia 15.0 H, Plt Count 210, MPV 10.2, Immature Gran % (Auto) 0.400, Neut % (Auto) 75.6 H, Lymph % (Auto) 10.4 L, [place] % (Auto) 13.3 H, Eos % (Auto) 0.0, Baso % (Auto) 0.3, Absolute Neuts (auto) 5.7, Absolute Lymphs (auto) 0.78 L, Nucleated RBC % 0, APTT 64.6 H, Sodium 139, Potassium 4.2, Chloride 101, Carbon Dioxide 21.8, Anion Gap 17 H, BUN 35 H, C reatinine 2.11 H, Estim Creat Clear Calc 32.20 L, Est GFR (MDRD) Non-Af 34 L, BUN/Creatinine Ratio 16.6, Glucose 167 H, Calcium 7.4 L, Magnesium 1.5, Total Bilirubin 0.42, AST 263 H, ALT 145 H, Alkaline Phosphatase 72, Total Protein 6.2, Albumin 3.3 L, Globulin 3.0, Albumin/Globulin Ratio 1.1, Triglycerides 101, Cholesterol 94, LDL Cholesterol, Calc 43, VLDL Cholesterol 20, HDL Cholesterol 31 L, Cholesterol/HDL Ratio 3.00 Micro: Microbiology 10/10/24 03:05 Mucosa - Nasopharyngeal Respiratory Panel (PCR) - Final 10/10/24 03:18 Urine Catheter - Catheter Streptococcus pneumoniae Antigen (M - Final 10/10/24 03:18 Urine Catheter - Robb Legionella Antigen - Final 10/10/24 01:40 Mucosa - Nose SARS-CoV-2, Influenza & RSV (PCR) - Final Radiography Diagnostic Testing: Radiology Impression Echocardiogram 10/10/24 05:23 Interpretation Summary Severe LV segmental wall motion. Basal portions of the lateral wall, inferior wall, anterior wall, inferior and anterior septum are severely hypokinetic to akinetic. Only the apex is bertha well. Estimated LVEF 35 to 40%. Stage III diastolic dysfunction. The left atrium is severely enlarged. The right atrium is mildly enlarged. Moderate (2+) mitral valve insufficiency. Moderate to severe tricuspid valve insufficiency. Right ventricular systolic pressure estimated at 46 mmHg. Moderate to severe aortic valve calcification. Aortic valve sclerosis with no stenosis. Valve area 1.9 cm?? by planimetry. Ordering Physician: Kendra Yuan Referring Physician: Kendy Modi Performed By: Raya Ma, JOSE ELIAS, RVT Rhythm Strip Rhythm Strip: Sinus Tach Physical Exam Narrative Seen and examined. Patient was on BiPAP mask last night. Shortness of breath is better. Currently off BiPAP in the morning. On 8 L of oxygen Physical exam: General: Awake, oriented x 3. HEENT: Atraumatic, EOMI, Normocephalic Oral: On alternate BiPAP and high flow oxygen Neck: Supple, No JVD, Negative Carotid Bruits Chest wall/Lungs: Air entry diminished in bilateral lung bases. Bilateral coarse crepitations Cardiovascular: Sinus rhythm, Normal S1, Normal S2, No M/G/R Abdomen: Bowel Sounds Present, Soft, colostomy and mucosal fistula. Surgical dressing. Dry : Suprapubic catheter. Clear urine on the tube No suprapubic tenderness. Extremities: Mild pedal edema, Capillary Refill Less than 3 Seconds Skin: No rashes, No breakdown Musculoskeletal: No Tenderness to Palpation of Joints or Extremities ROM limited. Muscle power could not be seen Neurological: Confused and disoriented. Detailed neuroexam unobtainable Psych/Mental Status: Flat affect Assessment & Plan Assessment/Plan (1) Sepsis: PLAN: Plan The patient is a 68 y/o M who is being admitted in ICU after patient's family brought to ED for confusion along with low-grade fever and altered mental status. He also had fatigue muscle aches and headache for last 12 hours. #1. Suspected sepsis due to pneumonia/complicated UTI: Patient is being admitted in ICU. The patient presented with suspected sepsis with clinical indicators of tachycardia, tachypnea, hypoxia, mild leukocytosis due to complicated CAUTI (suprapubic catheter) and possible pneumonia with acute sepsis-related organ dysfunction as evidenced by lactic acidosis, drop in SBP from baseline about 147-150 mmHg to 100 -106 mmHg and acute hypoxic respiratory failure requiring BiPAP/Airvo. Patient did not require pressors yet. Chest x- ray CT scan reviewed and shows mainly pulmonary edema with no filling defect to suggest pulmonary embolism. Small bilateral pleural effusion with partial collapse of adjacent lower lobes. Possible infectious process/pneumonia Patient not candidate for sepsis protocol fluid because of pulmonary edema Patient on IV vancomycin and Zosyn. Gas Operations Analyst consulted. Infectious workup ordered. 10/11: Respiratory panel and urinary antigens are negative. Triple PCR for SARS-CoV-2, flu and RSV are negative. Vancomycin and Zosyn discontinued because of MADELEINE. ID consulted for further opinion and change of antibiotic. Possible ceftriaxone/fluoroquinolone based on previous cultures 2. Acute hypoxic respiratory failure: Patient was 86% on room air. ABG shows 7.31/40/72 on 85% FiO2 Airvo suggestive of increased AA gradient. Bicarb 22. Anion gap 16 creatinine therefore increased anion gap metabolic acidosis. 10/05: Respiratory status is better. Patient looks more calm with less shortness of breath though remains hypoxic #2. Elevated troponin, potential NSTEMI type II most likely demand ischemia: Twelve-lead EKG shows sinus rhythm, mild ST depression V2-V5, T wave inversion. Chest x-ray suggestive of pulmonary edema. Troponins elevated but Baring, 409, 407 and 11/12/1976. proBNP hide about 3000. As Patient on IV heparin drip, aspirin and Plavix. Vending Machine Coin Collector consulted. 2D echo ordered. ECHO noted 05/28/2024 with LVEF 60%, moderate focal MV calcification, bileaflet, mild MVI, mild TBI, moderate diffuse aortic valve calcification with sclerosis without stenosis 10/11: #3. Acute kidney injury on CKD 2: admission BUN/Cr 26/1.39, GFR 56, baseline renal function primarily 0.6-0.7. Hold nephrotoxic 10/05: Marked Jump on creatinine from 1.33-2.11. Hold furosemide drip. DC lisinopril vancomycin and Zosyn discontinued as Zosyn increases creatinine with increased tubular secretion. Printed Circuit Boards Inspector consulted #4. CAD and peripheral arterial disease and carotid disease status post right CEA and history of stroke/CVA: Status post CABG x 5 with ZUNIGA to LAD and D1, free KIMBERLYN to PDA, SVG to ramus, SVG to OM1 2007 and PCI including [id number] 2014: Continue aspirin, Plavix, statin, Coreg. Patient not on ILDA/ARB because of MADELEINE. Patient also has PAD with PTCA left anterior tibial and peroneal artery. 5. Hypertension: Continue home regimen including amlodipine, Coreg, IV Lasix as able, PRN hydralazine. 6. Hyperlipidemia: Continue home statin regimen. Lipid profile ordered for tomorrow a.m. 7. Diabetes mellitus type II with chronic neuropathy: Accu-Chek before meals and at bedtime with Humalog sliding scale coverage and hypoglycemia protocol. Continue gabapentin 8. Anxiety and depression: On duloxetine 9. Chronic normocytic anemia: Admission hemoglobin 12.4, MCV 88, baseline hemoglobin 10-11 primarily. On beta 10. History colorectal cancer: Patient s/p resection with radiation and chemotherapy in 2020, has colostomy 11. ALEJANDRO: Normally uses CPAP nightly, initially in the ED transitioned to high flow/Airvo, given overload concern transitioned to BIPAP. 12. BPH with obstructive pathology with chronic suprapubic catheter: On Flomax. Suspected UTI, OT 14. GERD: continue patient on PPI. 15DVT prophylaxis: continue heparin drip. . CODE status: Patient healthcare Pap insurance defense attorney living will not in place but his who is present would be his medical decision-maker if necessary. Discussed CODE status at length including difference between FULL code, DNR-CCA and DNR-CC status. Following discussions about the differences in these status, requested DNR-CCA, no intubation. Verified CODE STATUS and gave example including what patient would want if his heart was still beating but he stopped breathing and even the situation he and his declined intubation. Charges/Coding Visit Charges Inpatient E&M: 33189 [facility] Hosp L3
[2024-10-11 08:44] LABS: Partial Thromboplast Time 72.6 Seconds (24.1-36.2)
--- NOTE | 2024-10-11 10:18 | PCM.CONS.GEN ---
Assessment & Plan Assessment/Plan (1) Combined systolic and diastolic congestive heart failure: (2) Acute kidney injury: (3) UTI (urinary tract infection): PLAN: Ucx pending, will cover with ceftriaxone. Recent ucx with klebs. Will follow, thank you HPI Consult Data Date of Consult: 10/11/24 HPI Narrative Reason for Consultation: uti HPI Narrative: MITCH VEGA, is a 68 M with h/o CHF, suprapubic catheter, DM, rectal cancer with ostomy, presented 3/6 with 4 hours of confusion, headache, nausea, difficulty speaking. Came to ED, admitted to icu on vanc/zosyn, now with MADELEINE. Mental status improved per . Full ROS performed and neg except as noted above. [facility] Medical History Ileostomy present Colostomy in place Orthostatic hypotension Essential hypertension Loss of hearing Wears glasses Cancer Depression Insulin dependent diabetes mellitus Walker as ambulation aid Arthritis High cholesterol Restless legs Injury of back Injury of head and neck Syncope Dietary restriction Gastric reflux Non-smoker CPAP (continuous positive airway pressure) dependence Shortness of breath on exertion Leg cramps History of pain when walking History of echocardiogram History of stress test Cardiology follow-up encounter History of heart attack Colorectal cancer Dysphagia invasive rectal adenocarcinoma Diabetic neuropathy Restrictive lung disease Type 2 diabetes mellitus Anxiety disorder GERD (gastroesophageal reflux disease) Carotid artery disease Obstructive sleep apnea 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 Peripheral vascular occlusive disease CVA (cerebral vascular accident) ALEJANDRO (obstructive sleep apnea) Dyslipidemia HTN (hypertension) Home Medications ?Medication ?Instructions ?Recorded ?Last Taken ?Type aspirin 81 mg chewable tablet 81 mg PO DAILY heart health 03/20/16 03/10/23 History insulin lispro 100 unit/mL 1 sliding scale dose subcut TIDCM 09/26/21 03/10/23 History subcutaneous pen (Humalog KwikPen diabetes (U-100) Insulin) duloxetine 60 mg capsule,delayed 30 mg (1/2 x 60 mg) PO DAILY 03/12/23 03/10/23 Rx release depression #30 caps clopidogrel 75 mg tablet 75 mg PO DAILY blood thinner #90 10/10/23 Unknown Rx tabs pantoprazole 40 mg tablet,delayed 40 mg PO DAILY GERD 12/01/23 Unknown History release sodium chloride 0.9 % 100 ea IV .continuous fluid 12/02/23 Unknown History imbalance amlodipine 10 mg tablet 10 mg PO DAILY BLOOD PRESSURE 01/31/24 Unknown History calcium carbonate (Tums) 300 mg PO TID PRN dyspepsia 01/31/24 Unknown History melatonin 3 mg tablet 3 mg PO QHS 01/31/24 Unknown History simethicone 125 mg chewable tablet 125 mg PO 4X/DAY PRN abdominal 01/31/24 Unknown History distention sodium chloride 0.65 % nasal spray 2 spray intranasal Q4H PRN dry 01/31/24 Unknown History aerosol ([place]os Saline) nasal passages tamsulosin 0.4 mg capsule (Flomax) 0.8 mg PO QHS 01/31/24 Unknown History carvedilol 6.25 mg tablet 6.25 mg PO BID #0 tabs 02/09/24 Unknown Rx acetaminophen 325 mg capsule 650 mg PO Q6H PRN pain 05/21/24 Unknown History atorvastatin 20 mg tablet 20 mg PO QDAY 05/21/24 Unknown History insulin glargine-yfgn 100 unit/mL 50 unit subcut BID 05/21/24 Unknown History (3 mL) subcutaneous pen (Semglee (insulin glargine-yfgn) Pen) gabapentin 300 mg capsule 300 mg PO DAILY 08/25/24 Unknown History metformin 500 mg tablet,extended 500 mg PO BID 08/25/24 Unknown History release 24 hr potassium chloride 20 mEq 20 meq PO DAILY 08/25/24 Unknown History tablet,extended release(part/cryst) (Klor-Con M) Allergy/AdvReac Type Severity Reaction Status Date / Time No Known Allergies Allergy Verified 10/10/24 01:30 Family History Father CAD (coronary artery disease) Hypertension Cancer leukemia Diabetes Heart disease High cholesterol Mother CVA (cerebral vascular accident) Diabetes Breast cancer Brother Diabetes Surgical History History of bilateral cataract extraction History of left heart catheterization (LHC) (~01/22/15) History of right and left heart catheterization (LHC) (~12/25/14) History of eye surgery PTCA Left Anterior Tibial and Paroneal Artery History of coronary artery stent placement (01/02/15) H/O coronary artery bypass surgery (05/30/08) History of right-sided carotid endarterectomy Excision Max.Zygoma Face Tumor History of tonsillectomy History of herniorrhaphy Social History (Updated 10/10/24 @ 03:[address] Kendra Yuan MD) household members: spouse Smoking Status: Never smoker alcohol intake: never substance use type: does not use caffeine: Yes what type of physical activity do you participate in: none Physical Exam Const no apparent distress General Appearance: cooperative and lethargic HEENT normocephalic and head/scalp atraumatic Eyes PERRL and EOMs intact bilaterally Neck supple and No nodes Resp normal air movement and clear to auscultation bilaterally Cardio regular rate and regular rhythm GI soft to palpation and non-distended GI Narrative: mild lower abd tenderness Extremity General Extremity: Negative for edema Skin no rashes or lesions noted Neuro CN's II-XII intact bilaterally Lab / Micro Data Attestation: I reviewed the patient's lab results. 10/11/24 02:00 10/11/24 02:00 Labs: Laboratory Results - last 24 hr 10/10/24 10:05: APTT 190.0 H* 10/10/24 16:03: POC Glucose 223 H 10/10/24 18:33: APTT 98.3 H* 10/10/24 20:29: POC Glucose 174 H 10/11/24 02:00: WBC 7.5, RBC 3.08 L, Hgb 8.9 L, Hct 27.3 L, MCV 88.6, MCH 28.9, MCHC 32.6, RDW Std Deviation 48.5 H, RDW Coeff of Maia 15.0 H, Plt Count 210, MPV 10.2, Immature Gran % (Auto) 0.400, Neut % (Auto) 75.6 H, Lymph % (Auto) 10.4 L, [place] % (Auto) 13.3 H, Eos % (Auto) 0.0, Baso % (Auto) 0.3, Absolute Neuts (auto) 5.7, Absolute Lymphs (auto) 0.78 L, Nucleated RBC % 0, APTT 64.6 H, Sodium 139, Potassium 4.2, Chloride 101, Carbon Dioxide 21.8, Anion Gap 17 H, BUN 35 H, Creatinine 2.11 H, Estim Creat Clear Calc 32.20 L, Est GFR (MDRD) Non-Af 34 L, BUN/Creatinine Ratio 16.6, Glucose 167 H, Calcium 7.4 L, Magnesium 1.5, Total Bilirubin 0.42, AST 263 H, ALT 145 H, Alkaline Phosphatase 72, Total Protein 6.2, Albumin 3.3 L, Globulin 3.0, Albumin/Globulin Ratio 1.1, Triglycerides 101, Cholesterol 94, LDL Cholesterol, Calc 43, VLDL Cholesterol 20, HDL Cholesterol 31 L, Cholesterol/HDL Ratio 3.00 10/11/24 08:18: APTT 72.6 H Micro: Microbiology 10/10/24 03:05 Mucosa - Nasopharyngeal Respiratory Panel (PCR) - Final 10/10/24 03:18 Urine Catheter - Catheter Streptococcus pneumoniae Antigen (M - Final 10/10/24 03:18 Urine Catheter - Robb Legionella Antigen - Final Rhythm Strip Rhythm Strip: Sinus Tach Imaging Radiology Impression Echocardiogram 10/10/24 05:23 Interpretation Summary Severe LV segmental wall motion. Basal portions of the lateral wall, inferior wall, anterior wall, inferior and anterior septum are severely hypokinetic to akinetic. Only the apex is bertha well. Estimated LVEF 35 to 40%. Stage III diastolic dysfunction. The left atrium is severely enlarged. The right atrium is mildly enlarged. Moderate (2+) mitral valve insufficiency. Moderate to severe tricuspid valve insufficiency. Right ventricular systolic pressure estimated at 46 mmHg. Moderate to severe aortic valve calcification. Aortic valve sclerosis with no stenosis. Valve area 1.9 cm?? by planimetry. Ordering Physician: Kendra Yuan Referring Physician: Kendy Modi Performed By: Raya Ma, JOSE ELIAS, RVT
[2024-10-11] MEDS: Pantoprazole Sodium 40 MG Tablet PO (10:23)
[2024-10-11] MEDS: Spironolactone 25 MG Tablet 12.5 MG PO (10:23)
[2024-10-11] MEDS: Aspirin 81 MG TAB.CHEW PO (10:23)
[2024-10-11] MEDS: Carvedilol 6.25 MG Tablet PO ×2 (10:23→17:27)
[2024-10-11] MEDS: DULoxetine Hcl 30 MG Capsule PO (10:24)
[2024-10-11] MEDS: Empagliflozin 10 MG Tablet PO (10:24)
[2024-10-11] MEDS: Clopidogrel Bisulfate 75 MG Tablet PO (10:24)
[2024-10-11] MEDS: 0.9% Normal Saline (1000mL) 1,000 ML 50 ML IV (10:24)
[2024-10-11] MEDS: Potassium Chloride Oral Tablet 20 MEQ PO (10:24)
[2024-10-11] MEDS: Gabapentin 300 MG Capsule PO (10:34)
[2024-10-11 11:02] LABS: Bedside Glucose 180 mg/dL (74-106)
--- NOTE | 2024-10-11 11:40 | PN.CC_ITS ---
Assessment & Plan Assessment/Plan (1) Combined systolic and diastolic congestive heart failure: (2) Acute kidney injury: (3) Non-ST elevated myocardial infarction (non-STEMI): (4) Acute respiratory failure with hypoxia: (5) Sepsis: PLAN: Plan RECOMMENDATIONS: 1. Wean supplemental oxygen to maintain saturations at or above 90%. 2. Antimicrobials per ID recommendations. 3. Continue heparin infusion. 4. PAP therapy with naps and nightly. 5. Timing for cardiac catheterization per cardiology. 6. Will sign off from a critical care perspective. Please call with any additional questions. IMPRESSIONS: 1. Sepsis The patient presented to the hospital with sepsis due to suspected UTI with acute sepsis related organ dysfunction as evidenced by lactic acidemia and respiratory failure requiring noninvasive positive pressure ventilatory support. The patient remains hemodynamically stable. He will be continued on antimicrobial therapy per ID recommendations. 2. Acute respiratory failure with hypoxemia Most likely secondary to underlying congestive heart failure, as opposed to an occult infectious process. Unfortunately, the patient was aggressively diuresed over the last 24 hours, leading to an increase in creatinine. Nevertheless, the patient's respiratory status has improved. Plan to continue to wean supplemental oxygen to maintain saturations at or above 90%. Encourage incentive spirometer use and mobilize patient as tolerated. 3. NSTEMI/acute decompensated heart failure Continue current medical management per cardiology recommendations. 4. History of coronary artery disease/history of CVA/diabetes mellitus/obstructive sleep apnea/peripheral arterial disease Complicates care, management, recovery and prognosis. Continue home medications as indicated. Recommend continuing PAP therapy nightly per home regimen. CODE STATUS: DNR CCA without intubation This note was generated with Guesty dictation software. It may contain incorrect words, spelling, and punctuation that were not noted in checking the note before signing. Subjective Subjective The patient was seen and examined at the bedside this morning. Events from the last 24 hours have been reviewed. The patient is currently afebrile, hemodynamically stable and maintaining appropriate oxygen saturations on 6 L/min via nasal cannula. The patient remains on ceftriaxone. White blood cell count is normal. Hemoglobin is dropped to 8.9 g/dL. Creatinine has increased to 2.1. Cardiology had maintained the patient on a Lasix infusion over the last 24 hours, which was ultimately discontinued due to the increasing creatinine. Although they were planning to potentially perform a cardiac catheterization, in light of his increased creatinine, that plan has been placed on hold. Objective Data Objective Data The patient's most recent lab work, culture data and imaging studies have all been personally reviewed. Surface echocardiogram demonstrated severe LV segmental wall motion with an ejection fraction of 35 to 40% and stage III diastolic dysfunction. Preliminary urine culture is demonstrating growth of a gram-negative moncho, lactose telephone order dispatcher. Vital Signs: Vital Signs Temp Pulse Resp BP Pulse Ox O2 Del Method O2 Flow Rate 98.0 F 78 13 108/63 91 Nasal Cannula 6 10/11/24 10:20 10/11/24 10:20 10/11/24 10:20 10/11/24 10:20 10/11/24 10:39 10/11/24 10:39 10/11/24 10:39 FiO2 40 10/11/24 05:00 Oxygen Flow Rate (L/min) 6 Oxygen Delivery Method Nasal Cannula Weight: 143 lb 8.335 oz Body Mass Index (BMI) 22.4 Intake & Output: Intake and Output for Last 24 Hours 10/09/24 10/10/24 10/11/24 23:59 23:59 23:59 Intake Total 2069.17 / 2069.17 385.27 / 385.27 Output Total 1650 / 1650 450 / 450 Balance 419.17 / 419.17 -64.73 / -64.73 Lab / Micro Data Attestation: I reviewed the patient's lab results. 10/11/24 02:00 10/11/24 02:00 Labs: Laboratory Results - last 24 hr 10/10/24 16:03: POC Glucose 223 H 10/10/24 18:33: APTT 98.3 H* 10/10/24 20:29: POC Glucose 174 H 10/11/24 02:00: WBC 7.5, RBC 3.08 L, Hgb 8.9 L, Hct 27.3 L, MCV 88.6, MCH 28.9, MCHC 32.6, RDW Std Deviation 48.5 H, RDW Coeff of Maia 15.0 H, Plt Count 210, MPV 10.2, Immature Gran % (Auto) 0.400, Neut % (Auto) 75.6 H, Lymph % (Auto) 10.4 L, [place] % (Auto) 13.3 H, Eos % (Auto) 0.0, Baso % (Auto) 0.3, Absolute Neuts (auto) 5.7, Absolute Lymphs (auto) 0.78 L, Nucleated RBC % 0, APTT 64.6 H, Sodium 139, Potassium 4.2, Chloride 101, Carbon Dioxide 21.8, Anion Gap 17 H, BUN 35 H, C reatinine 2.11 H, Estim Creat Clear Calc 32.20 L, Est GFR (MDRD) Non-Af 34 L, BUN/Creatinine Ratio 16.6, Glucose 167 H, Calcium 7.4 L, Magnesium 1.5, Total Bilirubin 0.42, AST 263 H, ALT 145 H, Alkaline Phosphatase 72, Total Protein 6.2, Albumin 3.3 L, Globulin 3.0, Albumin/Globulin Ratio 1.1, Triglycerides 101, Cholesterol 94, LDL Cholesterol, Calc 43, VLDL Cholesterol 20, HDL Cholesterol 31 L, Cholesterol/HDL Ratio 3.00 10/11/24 08:18: APTT 72.6 H 10/11/24 10:33: POC Glucose 180 H Micro: Microbiology 10/10/24 03:18 Urine Catheter - Robb Urine Culture - 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 lactose telephone order dispatcher 10/10/24 03:05 Mucosa - Nasopharyngeal Respiratory Panel (PCR) - Final 10/10/24 03:18 Urine Catheter - Catheter Streptococcus pneumoniae Antigen (M - Final 10/10/24 03:18 Urine Catheter - Robb Legionella Antigen - Final 10/10/24 01:40 Mucosa - Nose SARS-CoV-2, Influenza & RSV (PCR) - Final Rhythm Strip Rhythm Strip: Sinus Tach Physical Exam Const alert and no apparent distress General Appearance: cooperative HEENT normocephalic and head/scalp atraumatic Eyes PERRL, EOMs intact bilaterally and conjunctivae normal Neck supple General: trachea midline Chest inspection of chest normal Resp Auscultation: diminished lung sounds; Negative for rales, rhonchi or wheezes Cardio regular rate and regular rhythm GI normal to inspection, nondistended, normoactive bowel sounds Inspection: ostomy present Extremity no clubbing, cyanosis or edema Skin no rashes or lesions noted Neuro CN's II-XII intact bilaterally, moves all extremities and no focal motor deficits Psych Mood & Affect: flat affect Charges/Coding Visit Charges Inpatient E&M: 17611 Subs Hosp L2
--- NOTE | 2024-10-11 11:42 | PCM.PN.CARD ---
Subjective Subjective Denies any complaints. Objective Data Vital Signs: Vital Signs Temp Pulse Resp BP Pulse Ox O2 Del Method O2 Flow Rate 98.0 F 78 13 108/63 91 Nasal Cannula 6 10/11/24 10:20 10/11/24 10:20 10/11/24 10:20 10/11/24 10:20 10/11/24 10:39 10/11/24 10:39 10/11/24 10:39 FiO2 40 10/11/24 05:00 Oxygen Flow Rate (L/min) 6 Oxygen Delivery Method Nasal Cannula Weight: 143 lb 8.335 oz Body Mass Index (BMI) 22.4 Intake & Output: Intake and Output for Last 24 Hours 10/09/24 10/10/24 10/11/24 23:59 23:59 23:59 Intake Total 2069.17 / 2069.17 385.27 / 385.27 Output Total 1650 / 1650 450 / 450 Balance 419.17 / 419.17 -64.73 / -64.73 Lab / Micro Data 10/11/24 02:00 10/11/24 02:00 Labs: Laboratory Results - last 24 hr 10/10/24 16:03: POC Glucose 223 H 10/10/24 18:33: APTT 98.3 H* 10/10/24 20:29: POC Glucose 174 H 10/11/24 02:00: WBC 7.5, RBC 3.08 L, Hgb 8.9 L, Hct 27.3 L, MCV 88.6, MCH 28.9, MCHC 32.6, RDW Std Deviation 48.5 H, RDW Coeff of Maia 15.0 H, Plt Count 210, MPV 10.2, Immature Gran % (Auto) 0.400, Neut % (Auto) 75.6 H, Lymph % (Auto) 10.4 L, Henderson % (Auto) 13.3 H, Eos % (Auto) 0.0, Baso % (Auto) 0.3, Absolute Neuts (auto) 5.7, Absolute Lymphs (auto) 0.78 L, Nucleated RBC % 0, APTT 64.6 H, Sodium 139, Potassium 4.2, Chloride 101, Carbon Dioxide 21.8, Anion Gap 17 H, BUN 35 H, Creatinine 2.11 H, Estim Creat Clear Calc 32.20 L, Est GFR (MDRD) Non-Af 34 L, BUN/Creatinine Ratio 16.6, Glucose 167 H, Calcium 7.4 L, Magnesium 1.5, Total Bilirubin 0.42, AST 263 H, ALT 145 H, Alkaline Phosphatase 72, Total Protein 6.2, Albumin 3.3 L, Globulin 3.0, Albumin/Globulin Ratio 1.1, Triglycerides 101, Cholesterol 94, LDL Cholesterol, Calc 43, VLDL Cholesterol 20, HDL Cholesterol 31 L, Cholesterol/HDL Ratio 3.00 10/11/24 08:18: APTT 72.6 H 10/11/24 10:33: POC Glucose 180 H Micro: Microbiology 10/10/24 03:18 Urine Catheter - Robb Urine Culture - 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 lactose stone polisher hand Rhythm Strip Rhythm Strip: Sinus Tach Cardiology Labs/Tests 10/10/24 18:33: APTT 98.3 H* 10/11/24 02:00: WBC 7.5, RBC 3.08 L, Hgb 8.9 L, Hct 27.3 L, MCV 88.6, MCH 28.9, MCHC 32.6, Plt Count 210, MPV 10.2, Immature Gran % (Auto) 0.400, Neut % (Auto) 75.6 H, Lymph % (Auto) 10.4 L, Henderson % (Auto) 13.3 H, Eos % (Auto) 0.0, Baso % (Auto) 0.3, Absolute Neuts (auto) 5.7, Nucleated RBC % 0, APTT 64.6 H, Sodium 139, Potassium 4.2, Chloride 101, Carbon Dioxide 21.8, Anion Gap 17 H, BUN 35 H, Creatinine 2.11 H, Est GFR (MDRD) Non-Af 34 L, BUN/Creatinine Ratio 16.6, Glucose 167 H, Calcium 7.4 L, Magnesium 1.5, Total Bilirubin 0.42, Triglycerides 101, Cholesterol 94, VLDL Cholesterol 20, HDL Cholesterol 31 L, Cholesterol/HDL Ratio 3.00 10/11/24 08:18: APTT 72.6 H Rhythm: EKG: ECHO: Stress Test: Cardiac Cath: PCI: CT Surgery: Holter monitor: EPS: PPM: CXR: Chest CT Scan: Physical Exam Narrative Lying flat in bed. No apparent distress. Comfortable. Heart sounds 1 and 2 noted. Chest with decreased breath sounds at bilateral bases. No ankle edema. Assessment & Plan Assessment/Plan (1) Non-ST elevated myocardial infarction (non-STEMI): PLAN: Stable. Continue medical management for now. Aspirin, clopidogrel. Beta-blockers. DC heparin infusion. Coronary angiography when his other medical issues resolved and creatinine stable. (2) Coronary artery disease: PLAN: See #1 above. (3) Combined systolic and diastolic congestive heart failure: PLAN: Received furosemide infusion over the last 24 hours. Appears dry today. Creatinine also up. DC furosemide. Hydrate gently. (4) UTI (urinary tract infection): PLAN: On antibiotics. (5) Sepsis: PLAN: As per intensive care. (6) Acidosis, lactic: PLAN: As per intensive care. (7) Acute kidney injury: PLAN: Hydrate gently. Monitor.
--- NOTE | 2024-10-11 11:55 | PCM.CONS.U ---
HPI Consult Data Date of Consult: 10/11/24 HPI Narrative Reason for Consultation: UTI and suprapubic catheter HPI Narrative: MITCH VEGA, is a 68 M who presents to the hospital with a urinary tract infection, he has a history of retention of urine was found to have a nonfunctioning bladder so he was offered a suprapubic catheter as management option for his bladder this was placed by an outside urologist. The catheter suprapubic was initially placed in July has been changed once. He came back in the hospital with UTI. Today I was able to change the suprapubic catheter to a new 18 [place] suprapubic catheter was placed today. He can follow-up with his urologist after discharge. Nurses are able to flush the catheter if necessary. [facility]LY [facility] Medical History Ileostomy present Colostomy in place Orthostatic hypotension Essential hypertension Loss of hearing Wears glasses Cancer Depression Insulin dependent diabetes mellitus Walker as ambulation aid Arthritis High cholesterol Restless legs Injury of back Injury of head and neck Syncope Dietary restriction Gastric reflux Non-smoker CPAP (continuous positive airway pressure) dependence Shortness of breath on exertion Leg cramps History of pain when walking History of echocardiogram History of stress test Cardiology follow-up encounter History of heart attack Colorectal cancer Dysphagia invasive rectal adenocarcinoma Diabetic neuropathy Restrictive lung disease Type 2 diabetes mellitus Anxiety disorder GERD (gastroesophageal reflux disease) Carotid artery disease Obstructive sleep apnea 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 Peripheral vascular occlusive disease CVA (cerebral vascular accident) ALEJANDRO (obstructive sleep apnea) Dyslipidemia HTN (hypertension) Home Medications ?Medication ?Instructions ?Recorded ?Last Taken ?Type aspirin 81 mg chewable tablet 81 mg PO DAILY heart health 03/20/16 03/10/23 History insulin lispro 100 unit/mL 1 sliding scale dose subcut TIDCM 09/26/21 03/10/23 History subcutaneous pen (Humalog KwikPen diabetes (U-100) Insulin) duloxetine 60 mg capsule,delayed 30 mg (1/2 x 60 mg) PO DAILY 03/12/23 03/10/23 Rx release depression #30 caps clopidogrel 75 mg tablet 75 mg PO DAILY blood thinner #90 10/10/23 Unknown Rx tabs pantoprazole 40 mg tablet,delayed 40 mg PO DAILY GERD 12/01/23 Unknown History release sodium chloride 0.9 % 100 ea IV .continuous fluid 12/02/23 Unknown History imbalance amlodipine 10 mg tablet 10 mg PO DAILY BLOOD PRESSURE 01/31/24 Unknown History calcium carbonate (Tums) 300 mg PO TID PRN dyspepsia 01/31/24 Unknown History melatonin 3 mg tablet 3 mg PO QHS 01/31/24 Unknown History simethicone 125 mg chewable tablet 125 mg PO 4X/DAY PRN abdominal 01/31/24 Unknown History distention sodium chloride 0.65 % nasal spray 2 spray intranasal Q4H PRN dry 01/31/24 Unknown History aerosol ([place] Saline) nasal passages tamsulosin 0.4 mg capsule (Flomax) 0.8 mg PO QHS 01/31/24 Unknown History carvedilol 6.25 mg tablet 6.25 mg PO BID #0 tabs 02/09/24 Unknown Rx acetaminophen 325 mg capsule 650 mg PO Q6H PRN pain 05/21/24 Unknown History atorvastatin 20 mg tablet 20 mg PO QDAY 05/21/24 Unknown History insulin glargine-yfgn 100 unit/mL 50 unit subcut BID 05/21/24 Unknown History (3 mL) subcutaneous pen (Semglee (insulin glargine-yfgn) Pen) gabapentin 300 mg capsule 300 mg PO DAILY 08/25/24 Unknown History metformin 500 mg tablet,extended 500 mg PO BID 08/25/24 Unknown History release 24 hr potassium chloride 20 mEq 20 meq PO DAILY 08/25/24 Unknown History tablet,extended release(part/cryst) (Klor-Con M) Allergy/AdvReac Type Severity Reaction Status Date / Time No Known Allergies Allergy Verified 10/10/24 01:30 Family History Father CAD (coronary artery disease) Hypertension Cancer leukemia Diabetes Heart disease High cholesterol Mother CVA (cerebral vascular accident) Diabetes Breast cancer Brother Diabetes Surgical History History of bilateral cataract extraction History of left heart catheterization (LHC) (~01/22/15) History of right and left heart catheterization (LHC) (~12/25/14) History of eye surgery PTCA Left Anterior Tibial and Paroneal Artery History of coronary artery stent placement (01/02/15) H/O coronary artery bypass surgery (05/30/08) History of right-sided carotid endarterectomy Excision Max.Zygoma Face Tumor History of tonsillectomy History of herniorrhaphy Social History (Updated 10/10/24 @ 03:[address] Kendra Yuan MD) household members: spouse Smoking Status: Never smoker alcohol intake: never substance use type: does not use caffeine: Yes what type of physical activity do you participate in: none Lab / Micro Data 10/11/24 02:00 10/11/24 02:00 Labs: Laboratory Results - last 24 hr 10/10/24 16:03: POC Glucose 223 H 10/10/24 18:33: APTT 98.3 H* 10/10/24 20:29: POC Glucose 174 H 10/11/24 02:00: WBC 7.5, RBC 3.08 L, Hgb 8.9 L, Hct 27.3 L, MCV 88.6, MCH 28.9, MCHC 32.6, RDW Std Deviation 48.5 H, RDW Coeff of Maia 15.0 H, Plt Count 210, MPV 10.2, Immature Gran % (Auto) 0.400, Neut % (Auto) 75.6 H, Lymph % (Auto) 10.4 L, [place] % (Auto) 13.3 H, Eos % (Auto) 0.0, Baso % (Auto) 0.3, Absolute Neuts (auto) 5.7, Absolute Lymphs (auto) 0.78 L, Nucleated RBC % 0, APTT 64.6 H, Sodium 139, Potassium 4.2, Chloride 101, Carbon Dioxide 21.8, Anion Gap 17 H, BUN 35 H, Creatinine 2.11 H, Estim Creat Clear Calc 32.20 L, Est GFR (MDRD) Non-Af 34 L, BUN/Creatinine Ratio 16.6, Glucose 167 H, Calcium 7.4 L, Magnesium 1.5, Total Bilirubin 0.42, AST 263 H, ALT 145 H, Alkaline Phosphatase 72, Total Protein 6.2, Albumin 3.3 L, Globulin 3.0, Albumin/Globulin Ratio 1.1, Triglycerides 101, Cholesterol 94, LDL Cholesterol, Calc 43, VLDL Cholesterol 20, HDL Cholesterol 31 L, Cholesterol/HDL Ratio 3.00 10/11/24 08:18: APTT 72.6 H 10/11/24 10:33: POC Glucose 180 H Micro: Microbiology 10/10/24 03:18 Urine Catheter - Robb Urine Culture - 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 lactose director of assisted living Rhythm Strip Rhythm Strip: Sinus Tach
[2024-10-11] MEDS: Ceftriaxone 2 GM in 0.9% Normal Saline (50mL MB+) 50 ML IV (12:49)
--- NOTE | 2024-10-11 13:09 | CON.PCM.RE_ITS ---
Assessment & Plan Assessment/Plan (1) Acute kidney injury: PLAN: Baseline creatinine around 0.6-0.7. Increased to 2.[address] abdomen without any hydronephrosis. Urine analysis suggestive of UTI. He did receive a CT PE protocol study yesterday He did receive IV Lasix Overnight hypotensive, lactic acidosis Likely ATN due to one of the above. Nonoliguric. Potassium is okay. No acute indications for renal replacement therapy. Continue supportive therapy. Eventually need coronary angiogram. Medication list reviewed. I will place a hold on CHF medications for now in view of acute renal failure. SGLT2 inhibitors are not ideal for him given history of suprapubic catheter and risk for infections. HPI Consult Data Date of Consult: 10/11/24 HPI Narrative Reason for Consultation: Acute renal failure HPI Narrative: MITCH VEGA, is a 68 M who presents to the hospital with shortness of breath. Nephrology on consultation in view of acute renal failure. Ongoing events include Hypoxic respiratory failure, CT PE negative for PE, pulmonary edema pattern. Was on IV Lasix drip overnight. Non-ST elevation SD with elevated troponins. Echocardiogram with low ejection fraction, grade 3 diastolic dysfunction History of suprapubic catheter. Apparently this was being changed every 4 weeks, recently changed every 6 weeks. Suspicion for UTI/sepsis. Urology on consult UTI/pyelonephritis. Currently on ceftriaxone Acute renal failure. Baseline creatinine 0.6-0.7. Creatinine increased significantly today. Nonoliguric. Lactic acidosis. Presumably sepsis related. Diuretics are on hold, fluid resuscitation as per ICU FOR[facility] Medical History Ileostomy present Colostomy in place Orthostatic hypotension Essential hypertension Loss of hearing Wears glasses Cancer Depression Insulin dependent diabetes mellitus Walker as ambulation aid Arthritis High cholesterol Restless legs Injury of back Injury of head and neck Syncope Dietary restriction Gastric reflux Non-smoker CPAP (continuous positive airway pressure) dependence Shortness of breath on exertion Leg cramps History of pain when walking History of echocardiogram History of stress test Cardiology follow-up encounter History of heart attack Colorectal cancer Dysphagia invasive rectal adenocarcinoma Diabetic neuropathy Restrictive lung disease Type 2 diabetes mellitus Anxiety disorder GERD (gastroesophageal reflux disease) Carotid artery disease Obstructive sleep apnea 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 Peripheral vascular occlusive disease CVA (cerebral vascular accident) ALEJANDRO (obstructive sleep apnea) Dyslipidemia HTN (hypertension) Home Medications ?Medication ?Instructions ?Recorded ?Last Taken ?Type aspirin 81 mg chewable tablet 81 mg PO DAILY heart hea lth 03/20/16 03/10/23 History insulin lispro 100 unit/mL 1 sliding scale dose subcut TIDCM 09/26/21 03/10/23 History subcutaneous pen (Humalog KwikPen diabetes (U-100) Insulin) duloxetine 60 mg capsule,delayed 30 mg (1/2 x 60 mg) P O DAILY 03/12/23 03/10/23 Rx release depression #30 caps clopidogrel 75 mg tablet 75 mg PO DAILY blood thinner #90 10/10/23 Unknown Rx tabs pantoprazole 40 mg tablet,delayed 40 mg PO DAILY GERD 12/01/23 Unknown History release sodium chloride 0.9 % 100 ea IV .continuous fluid 12/02/23 Unknown History imbalance amlodipine 10 mg tablet 10 mg PO DAILY BLOOD PRESSUR E 01/31/24 Unknown History calcium carbonate (Tums) 300 mg PO TID PRN dyspepsia 01/31/24 Unknown History melatonin 3 mg tablet 3 mg PO QHS 01/31/24 Unknown History simethicone 125 mg chewable tablet 125 mg PO 4X/DAY MA N abdominal 01/31/24 Unknown History distention sodium chloride 0.65 % nasal spray 2 spray intranasal Q4H PRN dry 01/31/24 Unknown History aerosol ([place] Saline) nasal passages tamsulosin 0.4 mg capsule (Flomax) 0.8 mg PO QHS 01/30 Unknown History carvedilol 6.25 mg tablet 6.25 mg PO BID #0 tabs 02/08 Unknown Rx acetaminophen 325 mg capsule 650 mg PO Q6H PRN pain Unknown History atorvastatin 20 mg tablet 20 mg PO QDAY 05/21/24 Unkno wn History insulin glargine-yfgn 100 unit/mL 50 unit subcut BID 1 Unknown History (3 mL) subcutaneous pen (Semglee (insulin glargine-yfgn) Pen) gabapentin 300 mg capsule 300 mg PO DAILY 08/25/24 Unk nown History metformin 500 mg tablet,extended 500 mg PO BID 5 Unknown History release 24 hr potassium chloride 20 mEq 20 meq PO DAILY 08/25/24 Unk nown History tablet,extended release(part/cryst) (Klor-Con M) Allergy/AdvReac Type Severity Reaction Status Date / Time No Known Allergies Allergy Verified 10/10/24 01:30 Family History Father CAD (coronary artery disease) Hypertension Cancer leukemia Diabetes Heart disease High cholesterol Mother CVA (cerebral vascular accident) Diabetes Breast cancer Brother Diabetes Surgical History History of bilateral cataract extraction History of left heart catheterization (LHC) (~01/22/15) History of right and left heart catheterization (LHC) (~12/25/14) History of eye surgery PTCA Left Anterior Tibial and Paroneal Artery History of coronary artery stent placement (01/02/15) H/O coronary artery bypass surgery (05/30/08) History of right-sided carotid endarterectomy Excision Max.Zygoma Face Tumor History of tonsillectomy History of herniorrhaphy Social History (Updated 10/10/24 @ 03:[address] Kendra Yuan MD) household members: spouse Smoking Status: Never smoker alcohol intake: never substance use type: does not use caffeine: Yes what type of physical activity do you participate in: none ROS ROS Narrative Negative except above Physical Exam Narrative Alert awake oriented x 3 no obvious distress no pallor no icterus no JVD s1s2 no murmurs lungs clear abdomen soft no organomegaly no edema no cyanosis Suprapubic Lab / Micro Data 10/11/24 02:00 10/11/24 02:00 Labs: Laboratory Results - last 24 hr 10/10/24 16:03: POC Glucose 223 H 10/10/24 18:33: APTT 98.3 H* 10/10/24 20:29: POC Glucose 174 H 10/11/24 02:00: WBC 7.5, RBC 3.08 L, Hgb 8.9 L, Hct 27.3 L, MCV 88.6, MCH 28.9, MCHC 32.6, RDW Std Deviation 48.5 H, RDW Coeff of Maia 15.0 H, Plt Count 210, MPV 10.2, Immature Gran % (Auto) 0.400, Neut % (Auto) 75.6 H, Lymph % (Auto) 10.4 L, [place] % (Auto) 13.3 H, Eos % (Auto) 0.0, Baso % (Auto) 0.3, Absolute Neuts (auto) 5.7, Absolute Lymphs (auto) 0.78 L, Nucleated RBC % 0, APTT 64.6 H, Sodium 139, Potassium 4.2, Chloride 101, Carbon Dioxide 21.8, Anion Gap 17 H, BUN 35 H, C reatinine 2.11 H, Estim Creat Clear Calc 32.20 L, Est GFR (MDRD) Non-Af 34 L, BUN/Creatinine Ratio 16.6, Glucose 167 H, Calcium 7.4 L, Magnesium 1.5, Total Bilirubin 0.42, AST 263 H, ALT 145 H, Alkaline Phosphatase 72, Total Protein 6.2, Albumin 3.3 L, Globulin 3.0, Albumin/Globulin Ratio 1.1, Triglycerides 101, Cholesterol 94, LDL Cholesterol, Calc 43, VLDL Cholesterol 20, HDL Cholesterol 31 L, Cholesterol/HDL Ratio 3.00 10/11/24 08:18: APTT 72.6 H 10/11/24 10:33: POC Glucose 180 H Micro: Microbiology 10/10/24 03:18 Urine Catheter - Robb Urine Culture - 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 lactose creative services specialist Rhythm Strip Rhythm Strip: Sinus Tach
[2024-10-11] MEDS: Insulin Lispro 100 UNIT/ML INSULN.PEN SC ×2 (17:25→20:02)
[2024-10-11] MEDS: Nitroglycerin Oint 1 INCH PACKET 0.5 INCH TD (17:27)
[2024-10-11 17:51] LABS: Bedside Glucose 255 mg/dL (74-106)
[2024-10-11] MEDS: Tamsulosin HCl 0.4 MG Capsule 0.8 MG PO (20:01)
[2024-10-11] MEDS: Atorvastatin Calcium 20 MG Tablet PO (20:01)
[2024-10-11] MEDS: Insulin Glargine-YFGN 100 UNIT/ML Pen 50 UNIT SC (20:02)
[2024-10-11 20:28] LABS: Bedside Glucose 290 mg/dL (74-106)
[2024-10-11] MEDS: MELATONIN 10 MG TABLET PO (21:08)
[2024-10-12] VITALS (22 sets, daily range): BP systolic 92–112; BP diastolic 52–72; PULSE 78–86; RESP 12–18; TEMP 36.3–36.9; O2SAT 86–95; BMI 22.5
--- NOTE | 2024-10-12 03:00 | NURSING ---
This RN is taking over care at this time.
[2024-10-12] MEDS: Nitroglycerin Oint 1 INCH PACKET 0.5 INCH TD ×2 (05:49→17:11)
[2024-10-12] MEDS: Insulin Lispro 100 UNIT/ML INSULN.PEN SC ×3 (06:00→17:11)
[2024-10-12 06:21] LABS: Bedside Glucose 178 mg/dL (74-106)
[2024-10-12 08:13] LABS: Hematocrit 27.7 % (40-54); Hemoglobin 9.1 g/dL (13.0-16.5); Mean Corp Hgb Conc 32.9 g/dL (32-36); Mean Corpuscular Hgb 29.2 pg (27.0-32.0); Mean Corpuscular Volume 88.8 fL (80-94); Mean Platelet Vol. 10.4 fl (6.2-12.0); Platelet Count 193 K/mm3 (150-450); RBC Distribution Width CV 15.1 % (11.6-14.6); RBC Distribution Width SD 48.5 fl (35.1-43.9); Red Blood Count 3.12 M/mm3 (4.6-6.2); White Blood Count 7.7 K/mm3 (4.4-11.0)
[2024-10-12 09:50] LABS: Anion Gap 16 (5-15); BUN 51 mg/dL (4-19); BUN/Creat Ratio 21.6 RATIO (10-20); Calcium,Total 8.3 mg/dL (7.6-11.0); Carbon Dioxide 20.5 mmol/L (21.0-32.0); Chloride 98 mmol/L (98-108); Creatinine, Serum 2.37 mg/dL (0.70-1.20); EST Glomerular Filtration Rate 29 (>60); Estimated Creatinine Clearance 28.27 ml/min (50-250); Glucose 226 mg/dL (70-99); Potassium 4.4 mmol/L (3.3-5.1); Sodium Level 135 mmol/L (133-145)
[2024-10-12] MEDS: Sodium Chloride 0.65% 1 SPRAY SPRAY.BTL 2 SPRAY NASAL (10:09)
[2024-10-12] MEDS: DULoxetine Hcl 30 MG Capsule PO (10:10)
[2024-10-12] MEDS: Carvedilol 6.25 MG Tablet PO ×2 (10:10→17:11)
[2024-10-12] MEDS: Pantoprazole Sodium 40 MG Tablet PO (10:10)
[2024-10-12] MEDS: Aspirin 81 MG TAB.CHEW PO (10:10)
[2024-10-12] MEDS: Clopidogrel Bisulfate 75 MG Tablet PO (10:10)
[2024-10-12] MEDS: Acetaminophen 325 MG Tablet 650 MG PO ×2 (10:15→17:20)
[2024-10-12] MEDS: Gabapentin 300 MG Capsule PO (10:15)
[2024-10-12] MEDS: Ceftriaxone 2 GM in 0.9% Normal Saline (50mL MB+) 50 ML IV (10:24)
[2024-10-12] MEDS: 0.9% Saline Lock 10 ML Syringe IV ×3 (10:24→22:57)
--- NOTE | 2024-10-12 10:39 | PN.CARD_ITS ---
Subjective Subjective Sitting up in chair. Looks much improved. Denies any complaints. Objective Data Vital Signs: Vital Signs Temp Pulse Resp BP Pulse Ox O2 Del Method O2 Flow Rate 97.8 F 84 18 104/58 L 93 Nasal Cannula 3 10/12/24 10:00 10/12/24 10:00 10/12/24 10:00 10/12/24 10:00 10/12/24 10:25 10/12/24 10:25 10/12/24 10:25 FiO2 40 10/12/24 05:47 Oxygen Flow Rate (L/min) 3 Oxygen Delivery Method Nasal Cannula Weight: 143 lb 11.862 oz Body Mass Index (BMI) 22.5 Intake & Output: Intake and Output for Last 24 Hours 10/10/24 10/11/24 10/12/24 23:59 23:59 23:59 Intake Total 2069.17 / 2069.17 1035.27 / 1035.27 1240 / 1240 Output Total 1650 / 1650 1200 / 1200 150 / 150 Balance 419.17 / 419.17 -164.73 / -164.73 1090 / 1090 Lab / Micro Data Attestation: I reviewed the patient's lab results. 10/12/24 07:48 10/12/24 07:48 Labs: Laboratory Results - last 24 hr 10/11/24 10:33: POC Glucose 180 H 10/11/24 17:22: POC Glucose 255 H 10/11/24 20:00: POC Glucose 290 H 10/12/24 05:57: POC Glucose 178 H 10/12/24 07:48: WBC 7.7, RBC 3.12 L, Hgb 9.1 L, Hct 27.7 L, MCV 88.8, MCH 29.2, MCHC 32.9, RDW Std Deviation 48.5 H, RDW Coeff of Maia 15.1 H, Plt Count 193, MPV 10.4, Sodium 135, Potassium 4.4, Chloride 98, Carbon Dioxide 20.5 L, Anion Gap 16 H, BUN 51 H, Creatinine 2.37 H, Estim Creat Clear Calc 28.27 L, Est GFR (MDRD) Non-Af 29 L, BUN/Creatinine Ratio 21.6 H, Glucose 226 H, Calcium 8.3 Micro: Microbiology 10/10/24 03:18 Urine Catheter - Robb Urine Culture - 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 lactose cabinet finisher Gram negative moncho Presumptive C albicans Rhythm Strip Rhythm Strip: Sinus Tach Cardiology Labs/Tests 10/12/24 07:48: WBC 7.7, RBC 3.12 L, Hgb 9.1 L, Hct 27.7 L, MCV 88.8, MCH 29.2, MCHC 32.9, Plt Count 193, MPV 10.4, Sodium 135, Potassium 4.4, Chloride 98, C arbon Dioxide 20.5 L, Anion Gap 16 H, BUN 51 H, Creatinine 2.37 H, Est GFR (MDRD) Non-Af 29 L, BUN/Creatinine Ratio 21.6 H, Glucose 226 H, Calcium 8.3 Rhythm: EKG: ECHO: Stress Test: Cardiac Cath: PCI: CT Surgery: Holter monitor: EPS: PPM: CXR: Chest CT Scan: Physical Exam Narrative Comfortable. Heart sounds 1 and 2 noted. Chest clear to auscultation bilaterally. No ankle edema. Assessment & Plan Assessment/Plan (1) Non-ST elevated myocardial infarction (non-STEMI): PLAN: Stable. Continue medical management for now. Aspirin, clopidogrel. Beta-blockers. Coronary angiography when his other medical issues resolved and acute kidney injury resolves. (2) Coronary artery disease: PLAN: See #1 above. (3) Combined systolic and diastolic congestive heart failure: PLAN: No fluid volume overload clinically. Continue to monitor. (4) UTI (urinary tract infection): PLAN: On antibiotics. (5) Sepsis: PLAN: As per intensive care. (6) Acidosis, lactic: PLAN: As per intensive care. (7) Acute kidney injury: PLAN: Nephrology input appreciated.
[2024-10-12] MEDS: Insulin Glargine-YFGN 100 UNIT/ML Pen 50 UNIT SC ×2 (11:52→22:57)
[2024-10-12] MEDS: 0.9% Normal Saline (1000mL) 1,000 ML 50 ML IV (11:56)
[2024-10-12 12:51] LABS: Bedside Glucose 358 mg/dL (74-106)
--- NOTE | 2024-10-12 13:54 | PN.HOSP_ITS ---
Reason for Visit Reason for Visit: Diagnoses Sepsis, unspecified organism (10/10/24) Acidosis, unspecified (10/10/24) Non-ST elevation (NSTEMI) myocardial infarction (10/10/24) Atherosclerotic heart disease of [place] coronary artery without angina pectoris (10/10/24) Unspecified combined systolic (congestive) and diastolic (congestive) heart failure (10/10/24) Acute respiratory failure with hypoxia (10/10/24) Acute kidney failure, unspecified (10/10/24) Urinary tract infection, site not specified (10/10/24) Objective Data Objective Data Vital Signs: Vital Signs Temp Pulse Resp BP Pulse Ox O2 Del Method O2 Flow Rate 97.8 F 84 18 104/58 L 93 Nasal Cannula 3 10/12/24 10:00 10/12/24 10:00 10/12/24 10:00 10/12/24 10:00 10/12/24 10:25 10/12/24 10:25 10/12/24 10:25 FiO2 40 10/12/24 05:47 Oxygen Flow Rate (L/min) 3 Oxygen Delivery Method Nasal Cannula Weight: 143 lb 11.862 oz Body Mass Index (BMI) 22.5 Intake & Output: Intake and Output for Last 24 Hours 10/10/24 10/11/24 10/12/24 23:59 23:59 23:59 Intake Total 2069.17 / 2069.17 1035.27 / 1035.27 1850 / 1850 Output Total 1650 / 1650 1200 / 1200 500 / 500 Balance 419.17 / 419.17 -164.73 / -164.73 1350 / 1350 Lab / Micro Data 10/12/24 07:48 10/12/24 07:48 Labs: Laboratory Results - last 24 hr 10/11/24 17:22: POC Glucose 255 H 10/11/24 20:00: POC Glucose 290 H 10/12/24 05:57: POC Glucose 178 H 10/12/24 07:48: WBC 7.7, RBC 3.12 L, Hgb 9.1 L, Hct 27.7 L, MCV 88.8, MCH 29.2, MCHC 32.9, RDW Std Deviation 48.5 H, RDW Coeff of Maia 15.1 H, Plt Count 193, MPV 10.4, Sodium 135, Potassium 4.4, Chloride 98, Carbon Dioxide 20.5 L, Anion Gap 16 H, BUN 51 H, Creatinine 2.37 H, Estim Creat Clear Calc 28.27 L, Est GFR (MDRD) Non-Af 29 L, BUN/Creatinine Ratio 21.6 H, Glucose 226 H, Calcium 8.3 10/12/24 11:50: POC Glucose 358 H Micro: Microbiology 10/10/24 03:18 Urine Catheter - Robb Urine Culture - 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 lactose plate fitter Gram negative moncho Presumptive C albicans 10/10/24 03:05 Mucosa - Nasopharyngeal Respiratory Panel (PCR) - Final 10/10/24 03:18 Urine Catheter - Catheter Streptococcus pneumoniae Antigen (M - Final 10/10/24 03:18 Urine Catheter - Robb Legionella Antigen - Final 10/10/24 01:40 Mucosa - Nose SARS-CoV-2, Influenza & RSV (PCR) - Final Rhythm Strip Rhythm Strip: Sinus Tach Physical Exam Narrative Seen and examined. Patient on oxygen nasal cannula. Downgraded from ICU to PCU. Shortness of breath is better. Currently off BiPAP in the morning. Hypoxia, improved from 8 L of oxygen, to 3 L/min Physical exam: General: Awake, oriented x 3. HEENT: Atraumatic, EOMI, Normocephalic Oral: On alternate BiPAP and high flow oxygen Neck: Supple, No JVD, Negative Carotid Bruits Chest wall/Lungs: Air entry diminished in bilateral lung bases. Lungs clear. No crepitations Cardiovascular: Sinus rhythm, Normal S1, Normal S2, No M/G/R Abdomen: Bowel Sounds Present, Soft, colostomy and mucosal fistula. Surgical dressing. Dry : Suprapubic catheter. Clear urine on the tube No suprapubic tenderness. Extremities: Mild pedal edema, Capillary Refill Less than 3 Seconds Skin: No rashes, No breakdown Musculoskeletal: No Tenderness to Palpation of Joints or Extremities. ROM limited. Neurological: No focal neurological deficit. Cranial nerves II to XII intact. Psych/Mental Status: Flat affect Assessment & Plan Assessment/Plan (1) Sepsis: PLAN: Plan The patient is a 68 y/o M who is being admitted in ICU after patient's family brought to ED for confusion along with low-grade fever and altered mental status. He also had fatigue muscle aches and headache for last 12 hours. #1. Suspected sepsis due to pneumonia/complicated UTI: Patient is being admitted in ICU. The patient presented with suspected sepsis with clinical indicators of tachycardia, tachypnea, hypoxia, mild leukocytosis due to complicated CAUTI (suprapubic catheter) and possible pneumonia with acute sepsis-related organ dysfunction as evidenced by lactic acidosis, drop in SBP from baseline about 147-150 mmHg to 100 -106 mmHg and acute hypoxic respiratory failure requiring BiPAP/Airvo. Patient did not require pressors yet. Chest x- ray CT scan reviewed and shows mainly pulmonary edema with no filling defect to suggest pulmonary embolism. Small bilateral pleural effusion with partial collapse of adjacent lower lobes. Possible infectious process/pneumonia Patient not candidate for sepsis protocol fluid because of pulmonary edema Patient on IV vancomycin and Zosyn. Case Coordinator consulted. Infectious workup ordered. 10/11: Respiratory panel and urinary antigens are negative. Triple PCR for SARS-CoV-2, flu and RSV are negative. Vancomycin and Zosyn discontinued because of MADELEINE. ID consulted for further opinion and change of antibiotic. Possible ceftriaxone/fluoroquinolone based on previous cultures 10/12: Patient was seen by ID yesterday. IV vancomycin and Zosyn was changed to ceftriaxone yesterday. Urine culture shows GNR, GNR lactose plate fitter not in pathology range suggestive of contamination. Recent urine culture with Klebsiella. 2. Acute hypoxic respiratory failure: Patient was 86% on room air. ABG shows 7.31/40/72 on 85% FiO2 Airvo suggestive of increased AA gradient. Bicarb 22. Anion gap 16 creatinine therefore increased anion gap metabolic acidosis. 3/: Respiratory status is better. Patient looks more calm with less shortness of breath though remains hypoxic #2. 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 Chest x-ray suggestive of pulmonary edema. Troponins elevated but [place], 409, 407 and 11/12/1976. proBNP hide about 3000. As Patient on IV heparin drip, aspirin and Plavix. Wash Worker consulted. 2D echo ordered. ECHO noted 05/28/2024 with LVEF 60%, moderate focal MV calcification, bileaflet, mild MVI, mild TBI, moderate diffuse aortic valve calcification with sclerosis without stenosis 10/11: Repeat echo shows severe LV segmental wall motion abnormality, EF 35 to 40%, stage III diastolic dysfunction, LA severely enlarged. Moderate 2+ MR, moderate to severe TR. 10/12: Respiratory status is getting better. Diuretic on hold. #3. Acute kidney injury on CKD 2: admission BUN/Cr 26/1.39, GFR 56, baseline renal function primarily 0.6-0.7. Hold nephrotoxic 10/11: Marked Jump on creatinine from 1.33-2.11. Hold furosemide drip. DC lisinopril vancomycin and Zosyn discontinued as Zosyn increases creatinine with increased tubular secretion. Relationship Banker consulted 10/12: Patient was seen by personnel placement specialist on 10/11. MADELEINE from multiple etiologies, diuretic, heart failure, cardiorenal disease, IV contrast with probability of ATN as per the personnel placement specialist #4. CAD and peripheral arterial disease and carotid disease status post right CEA and history of stroke/CVA: Status post CABG x 5 with ZUNIGA to LAD and D1, free KIMBERLYN to PDA, SVG to ramus, SVG to OM1 2007 and PCI including [id number] 2014: Continue aspirin, Plavix, statin, Coreg. Patient not on ILDA/ARB because of MADELEINE. Patient also has PAD with PTCA left anterior tibial and peroneal artery. 5. Hypertension: Continue home regimen including amlodipine, Coreg, IV Lasix as able, PRN hydralazine. 6. Hyperlipidemia: Continue home statin regimen. Lipid profile ordered for tomorrow a.m. 7. Diabetes mellitus type II with chronic neuropathy: Accu-Chek before meals and at bedtime with Humalog sliding scale coverage and hypoglycemia protocol. Continue gabapentin 10/12: Glucose is high. Started on scheduled Humalog insulin 15 subcutaneous 3 times daily 8. Anxiety and depression: On duloxetine 9. Chronic normocytic anemia: Admission hemoglobin 12.4, MCV 88, baseline hemoglobin 10-11 primarily. On beta 10. History colorectal cancer: Patient s/p resection with radiation and chemotherapy in 2020, has colostomy 11. ALEJANDRO: Normally uses CPAP nightly, initially in the ED transitioned to high flow/Airvo, given overload concern transitioned to BIPAP. 12. BPH with obstructive pathology with chronic suprapubic catheter: On Flomax. Suspected UTI, OT 10/12: Patient had nonfunctioning bladder with history of retention therefore had suprapubic catheter by outside urologist. Yesterday Dr. Otero was consulted and he changed the suprapubic catheter 18 Chinese size. 14. GERD: continue patient on PPI. 15DVT prophylaxis: continue heparin drip. . CODE status: Patient healthcare Pap tax associate attorney living will not in place but his who is present would be his medical decision-maker if necessary. Discussed CODE status at length including difference between FULL code, DNR-CCA and DNR-CC status. Following discussions about the differences in these status, requested DNR-CCA, no intubation. Verified CODE STATUS and gave example including what patient would want if his heart was still beating but he stopped breathing and even the situation he and his declined intubation. Charges/Coding Visit Charges Inpatient E&M: 20370 Subs Hosp L3
[2024-10-12] MEDS: Insulin Lispro 100 UNIT/ML INSULN.PEN 15 UNIT SC (17:12)
[2024-10-12] MEDS: Ondansetron 4 MG/2 ML Vial IV (17:20)
[2024-10-12 17:34] LABS: Bedside Glucose 241 mg/dL (74-106)
[2024-10-12] MEDS: Tamsulosin HCl 0.4 MG Capsule 0.8 MG PO (21:59)
[2024-10-12] MEDS: Atorvastatin Calcium 20 MG Tablet PO (21:59)
[2024-10-12] MEDS: MELATONIN 10 MG TABLET PO (22:00)
--- NOTE | 2024-10-12 22:28 | PN.RENAL_ITS ---
Subjective Subjective chart reviewed -scr slightly bumped -bp ok -non oliguric -monitor for now -bmp in am Will follow with you. Objective Data Objective Data Vital Signs: Vital Signs Temp Pulse Resp BP Pulse Ox O2 Del Method O2 Flow Rate 97.9 F 86 18 110/67 92 Bi-pap 88 10/12/24 17:08 10/12/24 17:08 10/12/24 17:08 10/12/24 17:08 10/12/24 21:54 10/12/24 21:54 10/12/24 21:50 FiO2 45 10/12/24 21:54 Oxygen Flow Rate (L/min) 88 Oxygen Delivery Method Bi-pap Weight: 65.2 kg Body Mass Index (BMI) 22.5 Intake & Output: Intake and Output for Last 24 Hours 10/10/24 10/11/24 10/12/24 23:59 23:59 23:59 Intake Total 2069.17 / 2069.17 1035.27 / 1035.27 2330 / 2330 Output Total 1650 / 1650 1200 / 1200 1275 / 1275 Balance 419.17 / 419.17 -164.73 / -164.73 1055 / 1055 Lab / Micro Data 10/12/24 07:48 10/12/24 07:48 Labs: Laboratory Results - last 24 hr 10/12/24 05:57: POC Glucose 178 H 10/12/24 07:48: WBC 7.7, RBC 3.12 L, Hgb 9.1 L, Hct 27.7 L, MCV 88.8, MCH 29.2, MCHC 32.9, RDW Std Deviation 48.5 H, RDW Coeff of Maia 15.1 H, Plt Count 193, MPV 10.4, Sodium 135, Potassium 4.4, Chloride 98, Carbon Dioxide 20.5 L, Anion Gap 16 H, BUN 51 H, Creatinine 2.37 H, Estim Creat Clear Calc 28.27 L, Est GFR (MDRD) Non-Af 29 L, BUN/Creatinine Ratio 21.6 H, Glucose 226 H, Calcium 8.3 10/12/24 11:50: POC Glucose 358 H 10/12/24 17:05: POC Glucose 241 H Micro: Microbiology 10/10/24 01:50 Blood Culture (Wb) - Anticubital Right Blood Culture - Preliminary No growth in 48 hours. 10/10/24 01:37 Blood Culture (Wb) - Anticubital Left Blood Culture - Preliminary No growth in 48 hours. 10/10/24 03:18 Urine Catheter - Robb Urine Culture - 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 lactose video engineer Gram negative moncho Presumptive C albicans 10/10/24 03:05 Mucosa - Nasopharyngeal Respiratory Panel (PCR) - Final 10/10/24 03:18 Urine Catheter - Catheter Streptococcus pneumoniae Antigen (M - Final 10/10/24 03:18 Urine Catheter - Robb Legionella Antigen - Final 10/10/24 01:40 Mucosa - Nose SARS-CoV-2, Influenza & RSV (PCR) - Final Rhythm Strip Rhythm Strip: Sinus Tach
[2024-10-12 22:52] LABS: Bedside Glucose 144 mg/dL (74-106)
[2024-10-12] MEDS: Furosemide 40 MG/4 ML Vial IV (22:59)
--- NOTE | 2024-10-12 23:07 | PCM.HOSP.N ---
Hospitalist Note Increased oxygen requirements, crackles, will pulse dose with IV lasix x [address] BIPAP.
[2024-10-13] VITALS (11 sets, daily range): BP systolic 108–138; BP diastolic 70–76; PULSE 74–84; RESP 12–18; TEMP 36.3–36.8; O2SAT 91–94; BMI 23.9
[2024-10-13] MEDS: Acetaminophen 325 MG Tablet 650 MG PO ×2 (03:57→21:12)
--- NOTE | 2024-10-13 07:53 | PN.HOSP_ITS ---
Reason for Visit Reason for Visit: Diagnoses Sepsis, unspecified organism (10/10/24) Acidosis, unspecified (10/10/24) Non-ST elevation (NSTEMI) myocardial infarction (10/10/24) Atherosclerotic heart disease of [place] coronary artery without angina pectoris (10/10/24) Unspecified combined systolic (congestive) and diastolic (congestive) heart failure (10/10/24) Acute respiratory failure with hypoxia (10/10/24) Acute kidney failure, unspecified (10/10/24) Urinary tract infection, site not specified (10/10/24) Objective Data Objective Data Vital Signs: Vital Signs Temp Pulse Resp BP Pulse Ox O2 Del Method O2 Flow Rate 97.4 F L 74 14 126/75 H 94 Bi-pap 45 10/13/24 04:00 10/13/24 04:00 10/13/24 04:00 10/13/24 04:00 10/13/24 04:00 10/13/24 04:00 10/12/24 22:00 FiO2 45 10/13/24 04:00 Oxygen Flow Rate (L/min) 45 Oxygen Delivery Method Bi-pap Weight: 153 lb 0.013 oz Body Mass Index (BMI) 23.9 Intake & Output: Intake and Output for Last 24 Hours 10/11/24 10/12/24 10/14/24 23:59 23:59 00:59 Intake Total 1035.27 / 1035.27 2830 / 2830 Output Total 1200 / 1200 1275 / 1525 625 / 625 Balance -164.73 / -164.73 1555 / 1305 -625 / -625 Lab / Micro Data 10/13/24 08:45 10/13/24 08:45 Labs: Laboratory Results - last 24 hr 10/12/24 07:48: WBC 7.7, RBC 3.12 L, Hgb 9.1 L, Hct 27.7 L, MCV 88.8, MCH 29.2, MCHC 32.9, RDW Std Deviation 48.5 H, RDW Coeff of Maia 15.1 H, Plt Count 193, MPV 10.4, Sodium 135, Potassium 4.4, Chloride 98, Carbon Dioxide 20.5 L, Anion Gap 16 H, BUN 51 H, Creatinine 2.37 H, Estim Creat Clear Calc 28.27 L, Est GFR (MDRD) Non-Af 29 L, BUN/Creatinine Ratio 21.6 H, Glucose 226 H, Calcium 8.3 10/12/24 11:50: POC Glucose 358 H 10/12/24 17:05: POC Glucose 241 H 10/12/24 21:53: POC Glucose 144 H Micro: Microbiology 10/10/24 01:50 Blood Culture (Wb) - Anticubital Right Blood Culture - Preliminary No growth in 48 hours. 10/10/24 01:37 Blood Culture (Wb) - Anticubital Left Blood Culture - Preliminary No growth in 48 hours. 10/10/24 03:18 Urine Catheter - Robb Urine Culture - 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 lactose internal revenue service agent Gram negative moncho Presumptive C albicans 10/10/24 03:05 Mucosa - Nasopharyngeal Respiratory Panel (PCR) - Final 10/10/24 03:18 Urine Catheter - Catheter Streptococcus pneumoniae Antigen (M - Final 10/10/24 03:18 Urine Catheter - Robb Legionella Antigen - Final 10/10/24 01:40 Mucosa - Nose SARS-CoV-2, Influenza & RSV (PCR) - Final Rhythm Strip Rhythm Strip: Sinus Tach Physical Exam Narrative Seen and examined. Patient mild shortness of breath. He was on BiPAP 45% FiO2 yesterday. His oxygen increased from 3 L to 10 L but most recently 7 L/min. Patient was put back on the Lasix 40 mg IV twice daily. BNP also high. Discussed with the cyber threat analyst. Physical exam: General: Awake, oriented x 3. HEENT: Atraumatic, EOMI, Normocephalic Oral: On alternate BiPAP and high flow oxygen Neck: Supple, JVP elevated. Negative Carotid Bruits Chest wall/Lungs: Air entry diminished in bilateral lung bases. Mild fine crepitations. Cardiovascular: Sinus rhythm, Normal S1, Normal S2, No M/G/R Abdomen: Bowel Sounds Present, Soft, colostomy and mucosal fistula. Surgical dressing. : Suprapubic catheter. Clear urine on the tube No suprapubic tenderness. Extremities: Mild pedal edema, Capillary Refill Less than 3 Seconds Skin: No rashes, No breakdown Musculoskeletal: No Tenderness to Palpation of Joints or Extremities. ROM limited. Neurological: No focal neurological deficit. Cranial nerves II to XII intact. Psych/Mental Status: Flat affect Assessment & Plan Assessment/Plan (1) Sepsis: PLAN: Plan The patient is a 68 y/o M who is being admitted in ICU after patient's family brought to ED for confusion along with low-grade fever and altered mental status. He also had fatigue muscle aches and headache for last 12 hours. #1. Suspected sepsis due to pneumonia/complicated UTI: Patient is being admitted in ICU. The patient presented with suspected sepsis with clinical indicators of tachycardia, tachypnea, hypoxia, mild leukocytosis due to complicated CAUTI (suprapubic catheter) and possible pneumonia with acute sepsis-related organ dysfunction as evidenced by lactic acidosis, drop in SBP from baseline about 147-150 mmHg to 100 -106 mmHg and acute hypoxic respiratory failure requiring BiPAP/Airvo. Patient did not require pressors yet. Chest x- ray CT scan reviewed and shows mainly pulmonary edema with no filling defect to suggest pulmonary embolism. Small bilateral pleural effusion with partial collapse of adjacent lower lobes. Possible infectious process/pneumonia Patient not candidate for sepsis protocol fluid because of pulmonary edema Patient on IV vancomycin and Zosyn. Jewelry Drilling Machine Operator consulted. Infectious workup ordered. 3: Respiratory panel and urinary antigens are negative. Triple PCR for SARS-CoV-2, flu and RSV are negative. Vancomycin and Zosyn discontinued because of MADELEINE. ID consulted for further opinion and change of antibiotic. Possible ceftriaxone/fluoroquinolone based on previous cultures 10/12: Patient was seen by ID yesterday. IV vancomycin and Zosyn was changed to ceftriaxone yesterday. Urine culture shows GNR, GNR lactose internal revenue service agent not in pathology range suggestive of contamination. Recent urine culture with Klebsiella. 2. Acute hypoxic respiratory failure: Patient was 86% on room air. ABG shows 7.31/40/72 on 85% FiO2 Airvo suggestive of increased AA gradient. Bicarb 22. Anion gap 16 creatinine therefore increased anion gap metabolic acidosis 3: Respiratory status is better. Patient looks more calm with less shortness of breath though remains hypoxic 10/12: Respiratory status worse than yesterday and overnight patient was on BiPAP. Patient was put back on the Lasix questionable. #2. 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 Chest x-ray suggestive of pulmonary edema. Troponins elevated but [place], 409, 407 and 11/12/1976. proBNP hide about 3000. As Patient on IV heparin drip, aspirin and Plavix. Order Clerk consulted. 2D echo ordered. ECHO noted 05/28/2024 with LVEF 60%, moderate focal MV calcification, bileaflet, mild MVI, mild TBI, moderate diffuse aortic valve calcification with sclerosis without stenosis 10/11: Repeat echo shows severe LV segmental wall motion abnormality, EF 35 to 40%, stage III diastolic dysfunction, LA severely enlarged. Moderate 2+ MR, moderate to severe TR. 10/12: Discussed with the cyber threat analyst. #3. Acute kidney injury on CKD 2: admission BUN/Cr 26/1.39, GFR 56, baseline renal function primarily 0.6-0.7. Hold nephrotoxic 10/11: Marked Jump on creatinine from 1.33-2.11. Hold furosemide drip. DC lisinopril vancomycin and Zosyn discontinued as Zosyn increases creatinine with increased tubular secretion. Marketing Operations Manager consulted 10/12: Patient was seen by cutting tool sharpener on 10/11. MADELEINE from multiple etiologies, diuretic, heart failure, cardiorenal disease, IV contrast with probability of ATN as per the cutting tool sharpener. Continue supportive treatment. Creatinine 2.08 similar to yesterday #4. CAD and peripheral arterial disease and carotid disease status post right CEA and history of stroke/CVA: Status post CABG x 5 with ZUNIGA to LAD and D1, free KIMBERLYN to PDA, SVG to ramus, SVG to OM1 2007 and PCI including [id number] 2014: Continue aspirin, Plavix, statin, Coreg. Patient not on ILDA/ARB because of MADELEINE. Patient also has PAD with PTCA left anterior tibial and peroneal artery. 5. Hypertension: Continue home regimen including amlodipine, Coreg, IV Lasix as able, PRN hydralazine. 6. Hyperlipidemia: Continue home statin regimen. Lipid profile ordered for tomorrow a.m. 7. Diabetes mellitus type II with chronic neuropathy: Accu-Chek before meals and at bedtime with Humalog sliding scale coverage and hypoglycemia protocol. Continue gabapentin 10/12: Glucose is high. Started on scheduled Humalog insulin 15 subcutaneous 3 times daily 8. Anxiety and depression: On duloxetine 9. Chronic normocytic anemia: Admission hemoglobin 12.4, MCV 88, baseline hemoglobin 10-11 primarily. On beta 10. History colorectal cancer: Patient s/p resection with radiation and chemotherapy in 2020, has colostomy 11. ALEJANDRO: Normally uses CPAP nightly, initially in the ED transitioned to high flow/Airvo, given overload concern transitioned to BIPAP. 12. BPH with obstructive pathology with chronic suprapubic catheter: On Flomax. Suspected UTI, OT 10/12: Patient had nonfunctioning bladder with history of retention therefore had suprapubic catheter by outside urologist. Yesterday Dr. Otero was consulted and he changed the suprapubic catheter 18 German size. 14. GERD: continue patient on PPI. 15DVT prophylaxis: continue heparin drip. . CODE status: Patient healthcare Pap corporate attorney living will not in place but his who is present would be his medical decision-maker if necessary. Discussed CODE status at length including difference between FULL code, DNR-CCA and DNR-CC status. Following discussions about the differences in these status, requested DNR-CCA, no intubation. Verified CODE STATUS and gave example including what patient would want if his heart was still beating but he stopped breathing and even the situation he and his declined intubation. Microbiology Past 72 Hours 10/10/24 03:18 Urine Catheter - Robb Urine Culture - Final Klebsiella pneumoniae sp pneum Presumptive C albicans Escherichia coli 10/10/24 01:50 Blood Culture (Wb) - Anticubital Right Blood Culture - Preliminary No growth in 48 hours. 10/10/24 01:37 Blood Culture (Wb) - Anticubital Left Blood Culture - Preliminary No growth in 48 hours. Laboratory Results 10/12/24 17:05: POC Glucose 241 H 10/12/24 21:53: POC Glucose 144 H 10/13/24 08:31: POC Glucose 156 H 10/13/24 08:45: WBC 7.6, RBC 3.57 L, Hgb 10.3 L, Hct 32.1 L, MCV 89.9, MCH 28.9, MCHC 32.1, RDW Std Deviation 48.5 H, RDW Coeff of Maia 14.9 H, Plt Count 215, MPV 10.5, Immature Gran % (Auto) 0.700, Neut % (Auto) 76.0 H, Lymph % (Auto) 9.6 L, [place] % (Auto) 12.0 H, Eos % (Auto) 1.4, Baso % (Auto) 0.3, Absolute Neuts (auto) 5.8, Absolute Lymphs (auto) 0.73 L, Nucleated RBC % 0, Sodium 134, Potassium 4.6, Chloride 97 L, Carbon Dioxide 22.2, Anion Gap 15, BUN 60 H, Creatinine 2.08 H, Estim Creat Clear Calc 32.66 L, Est GFR (MDRD) Non-Af 34 L, BUN/Creatinine Ratio 29.0 H, Glucose 169 H, Calcium 9.0, NT pro BNP II 8718 H 10/13/24 11:39: POC Glucose 146 H Charges/Coding Addendum Addendum: Total time of the visit including total time spent in counseling or coordination of care, (more than 50% of the total time, spent in obtaining medical information from nurses and other ancillary care providers ,explaining to the patient about labs, imaging, diagnosis and management of active complex medical conditions), discussion with the cyber threat analyst and cutting tool sharpener, management of complex active clinical problems review of labs and imaging is 35 minutes. Visit Charges Inpatient E&M: 32808 Subs Hosp L3
[2024-10-13] MEDS: Insulin Lispro 100 UNIT/ML INSULN.PEN 15 UNIT SC ×2 (08:32→11:40)
[2024-10-13] MEDS: Insulin Lispro 100 UNIT/ML INSULN.PEN SC ×3 (08:33→21:12)
[2024-10-13] MEDS: Insulin Glargine-YFGN 100 UNIT/ML Pen 50 UNIT SC ×2 (08:37→21:12)
[2024-10-13] MEDS: Gabapentin 300 MG Capsule PO (08:37)
[2024-10-13] MEDS: DULoxetine Hcl 30 MG Capsule PO (08:38)
[2024-10-13] MEDS: Pantoprazole Sodium 40 MG Tablet PO (08:38)
[2024-10-13] MEDS: Carvedilol 6.25 MG Tablet PO ×2 (08:38→16:43)
[2024-10-13] MEDS: Aspirin 81 MG TAB.CHEW PO (08:38)
[2024-10-13] MEDS: Clopidogrel Bisulfate 75 MG Tablet PO (08:38)
[2024-10-13] MEDS: Ceftriaxone 2 GM in 0.9% Normal Saline (50mL MB+) 50 ML IV (08:44)
[2024-10-13 09:20] LABS: Absolute Lymphocyte Count 0.73 X10^3/uL (0.83-4.51); Absolute Neutrophil Count 5.8 X10^3/uL (2.0-7.7); Basophil# 0.02 X10^3/uL; Basophil% 0.3 % (0-1); Eosinophil# 0.11 X10^3/uL; Eosinophils% 1.4 % (0-5); Hematocrit 32.1 % (40-54); Hemoglobin 10.3 g/dL (13.0-16.5); Lymphocyte # 0.73 X10^3/ul (0.83-4.51); Lymphocyte % 9.6 % (19-41); Mean Corp Hgb Conc 32.1 g/dL (32-36); Mean Corpuscular Hgb 28.9 pg (27.0-32.0); Mean Corpuscular Volume 89.9 fL (80-94); Mean Platelet Vol. 10.5 fl (6.2-12.0); Monocyte# 0.92 X10^3/uL; NRBC Flagged by Analyzer 0 % (0-5); Neutrophil # 5.81 X10^3/uL (2.7-7.7); Platelet Count 215 K/mm3 (150-450); RBC Distribution Width CV 14.9 % (11.6-14.6); RBC Distribution Width SD 48.5 fl (35.1-43.9); Red Blood Count 3.57 M/mm3 (4.6-6.2); White Blood Count 7.6 K/mm3 (4.4-11.0)
[2024-10-13 10:27] LABS: Anion Gap 15 (5-15); BUN 60 mg/dL (4-19); Carbon Dioxide 22.2 mmol/L (21.0-32.0); Chloride 97 mmol/L (98-108); Creatinine, Serum 2.08 mg/dL (0.70-1.20); EST Glomerular Filtration Rate 34 (>60); Estimated Creatinine Clearance 32.66 ml/min (50-250); Glucose 169 mg/dL (70-99); Potassium 4.6 mmol/L (3.3-5.1); Sodium Level 134 mmol/L (133-145)
--- NOTE | 2024-10-13 10:49 | PN.CARD_ITS ---
Subjective Subjective Sitting up in chair. Complaining of some shortness of breath. No chest pain. Objective Data Vital Signs: Vital Signs Temp Pulse Resp BP Pulse Ox O2 Del Method O2 Flow Rate 97.9 F 83 18 126/70 H 93 High Flow 9 10/13/24 08:58 10/13/24 08:58 10/13/24 08:58 10/13/24 08:58 10/13/24 08:58 10/13/24 09:01 10/13/24 09:01 FiO2 45 10/13/24 04:00 Oxygen Flow Rate (L/min) 9 Oxygen Delivery Method High Flow Weight: 153 lb 0.013 oz Body Mass Index (BMI) 23.9 Intake & Output: Intake and Output for Last 24 Hours 10/11/24 10/12/24 10/14/24 23:59 23:59 00:59 Intake Total 1035.27 / 1035.27 2830 / 2830 50 / 50 Output Total 1200 / 1200 1275 / 1525 625 / 625 Balance -164.73 / -164.73 1555 / 1305 -575 / -575 Lab / Micro Data Attestation: I reviewed the patient's lab results. 10/13/24 08:45 10/13/24 08:45 Labs: Laboratory Results - last 24 hr 10/12/24 07:48: Sodium 135, Potassium 4.4, Chloride 98, Carbon Dioxide 20.5 L, A nion Gap 16 H, BUN 51 H, Creatinine 2.37 H, Estim Creat Clear Calc 28.27 L, Est GFR (MDRD) Non-Af 29 L, BUN/Creatinine Ratio 21.6 H, Glucose 226 H, Calcium 8.3 10/12/24 11:50: POC Glucose 358 H 10/12/24 17:05: POC Glucose 241 H 10/12/24 21:53: POC Glucose 144 H 10/13/24 08:45: WBC 7.6, RBC 3.57 L, Hgb 10.3 L, Hct 32.1 L, MCV 89.9, MCH 28.9, MCHC 32.1, RDW Std Deviation 48.5 H, RDW Coeff of Maia 14.9 H, Plt Count 215, MPV 10.5, Immature Gran % (Auto) 0.700, Neut % (Auto) 76.0 H, Lymph % (Auto) 9.6 L, [place] % (Auto) 12.0 H, Eos % (Auto) 1.4, Baso % (Auto) 0.3, Absolute Neuts (auto) 5.8, Absolute Lymphs (auto) 0.73 L, Nucleated RBC % 0, Sodium 134, Potassium 4.6, Chloride 97 L, Carbon Dioxide 22.2, Anion Gap 15, BUN 60 H, Creatinine 2.08 H, Estim Creat Clear Calc 32.66 L, Est GFR (MDRD) Non-Af 34 L, BUN/Creatinine Ratio 29.0 H, Glucose 169 H, Calcium 9.0 Micro: Microbiology 10/10/24 03:18 Urine Catheter - Robb Urine Culture - Final Klebsiella pneumoniae sp pneum Presumptive C albicans Escherichia coli 10/10/24 01:50 Blood Culture (Wb) - Anticubital Right Blood Culture - Preliminary No growth in 48 hours. 10/10/24 01:37 Blood Culture (Wb) - Anticubital Left Blood Culture - Preliminary No growth in 48 hours. Rhythm Strip Rhythm Strip: Sinus Rhythm Cardiology Labs/Tests 10/12/24 07:48: Sodium 135, Potassium 4.4, Chloride 98, Carbon Dioxide 20.5 L, A nion Gap 16 H, BUN 51 H, Creatinine 2.37 H, Est GFR (MDRD) Non-Af 29 L, B UN/Creatinine Ratio 21.6 H, Glucose 226 H, Calcium 8.3 10/13/24 08:45: WBC 7.6, RBC 3.57 L, Hgb 10.3 L, Hct 32.1 L, MCV 89.9, MCH 28.9, MCHC 32.1, Plt Count 215, MPV 10.5, Immature Gran % (Auto) 0.700, Neut % (Auto) 76.0 H, Lymph % (Auto) 9.6 L, [place] % (Auto) 12.0 H, Eos % (Auto) 1.4, Baso % (Auto) 0.3, Absolute Neuts (auto) 5.8, Nucleated RBC % 0, Sodium 134, Potassium 4.6, Chloride 97 L, Carbon Dioxide 22.2, Anion Gap 15, BUN 60 H, Creatinine 2.08 H, Est GFR (MDRD) Non-Af 34 L, BUN/Creatinine Ratio 29.0 H, Glucose 169 H, Calcium 9.0 Rhythm: EKG: ECHO: Stress Test: Cardiac Cath: PCI: CT Surgery: Holter monitor: EPS: PPM: CXR: Chest CT Scan: Physical Exam Narrative Appears comfortable. Mild JVD. Heart sounds 1 and 2 noted. Chest examination with decreased breath sounds bilateral bases particularly right base. No ankle edema. Assessment & Plan Assessment/Plan (1) Non-ST elevated myocardial infarction (non-STEMI): PLAN: Stable. Continue medical management for now. Aspirin, clopidogrel. Beta-blockers. With patient's acute kidney injury, likely contrast induced nephropathy after his CTA chest, will hold off on any invasive workup at present. Will check Lexiscan stress Myoview. (2) Coronary artery disease: PLAN: See #1 above. (3) Combined systolic and diastolic congestive heart failure: PLAN: Restart furosemide. Monitor creatinine. Check chest x-ray. Check proBNP. (4) UTI (urinary tract infection): PLAN: On antibiotics. (5) Sepsis: PLAN: Resolved. (6) Acute kidney injury: PLAN: Nephrology input appreciated. Likely contrast induced nephropathy after his recent exposure to IV contrast for CTA chest.
--- NOTE | 2024-10-13 10:51 | RAD_ITS ---
PROCEDURE: CHEST 1 VIEW (PORTABLE) REASON FOR EXAM: 68-year-old male, shortness of breath. TECHNIQUE: Frontal view of the chest. COMPARISON: Chest radiograph 10/10/2024. FINDINGS: Prior median sternotomy. The heart size is normal. Stable bilateral perihilar ill-defined opacities, greatest within the lower lungs. Development of at least moderate bilateral pleural effusions. No pneumothorax. Degenerative changes are identified within the thoracic spine. Chronic fracture deformity of the left humeral head. RAD/Chest 1 View (Portable) IMPRESSION: Unchanged bilateral perihilar opacities, likely infection/inflammatory etiology . Development of at least moderate bilateral pleural effusions. Reading Location: [id number]
[2024-10-13 11:28] LABS: Pro- Brain NATRIURETIC PEPTIDE 8718 pg/mL (<=900)
[2024-10-13] MEDS: Furosemide 40 MG/4 ML Vial IV ×2 (11:40→16:46)
[2024-10-13] MEDS: Nitroglycerin Oint 1 INCH PACKET TD ×2 (11:47→16:47)
[2024-10-13 11:52] LABS: Bedside Glucose 156 mg/dL (74-106)
[2024-10-13 12:01] LABS: Bedside Glucose 146 mg/dL (74-106)
[2024-10-13] MEDS: hydrALAZINE 10 MG Tablet PO ×3 (14:38→21:19)
[2024-10-13] MEDS: Insulin Lispro 100 UNIT/ML INSULN.PEN 20 UNIT SC (16:42)
[2024-10-13 17:15] LABS: Bedside Glucose 212 mg/dL (74-106)
[2024-10-13] MEDS: MELATONIN 10 MG TABLET PO (21:11)
[2024-10-13] MEDS: Atorvastatin Calcium 20 MG Tablet PO (21:11)
[2024-10-13] MEDS: Tamsulosin HCl 0.4 MG Capsule 0.8 MG PO (21:11)
[2024-10-13 23:09] LABS: Bedside Glucose 234 mg/dL (74-106)
[2024-10-14] VITALS (10 sets, daily range): BP systolic 111–157; BP diastolic 72–91; PULSE 74–91; RESP 14–19; TEMP 36.2–36.7; O2SAT 90–96; BMI 23.3
[2024-10-14] MEDS: ALPRAZolam 0.25 MG Tablet PO (01:50)
[2024-10-14 05:38] LABS: Absolute Lymphocyte Count 0.52 X10^3/uL (0.83-4.51); Absolute Neutrophil Count 4.8 X10^3/uL (2.0-7.7); Basophil# 0.01 X10^3/uL; Basophil% 0.2 % (0-1); Eosinophil# 0.15 X10^3/uL; Eosinophils% 2.4 % (0-5); Hematocrit 28.8 % (40-54); Hemoglobin 9.4 g/dL (13.0-16.5); Lymphocyte # 0.52 X10^3/ul (0.83-4.51); Lymphocyte % 8.2 % (19-41); Mean Corp Hgb Conc 32.6 g/dL (32-36); Mean Corpuscular Hgb 28.6 pg (27.0-32.0); Mean Corpuscular Volume 87.5 fL (80-94); Mean Platelet Vol. 10.2 fl (6.2-12.0); Monocyte# 0.79 X10^3/uL; Monocyte% 12.5 % (0-10); NRBC Flagged by Analyzer 0 % (0-5); Neutrophil # 4.82 X10^3/uL (2.7-7.7); Neutrophil % 76.2 % (47-70); POSITIVE DIFFERENTIAL YES; Platelet Count 222 K/mm3 (150-450); RBC Distribution Width CV 14.5 % (11.6-14.6); RBC Distribution Width SD 46.5 fl (35.1-43.9); Red Blood Count 3.29 M/mm3 (4.6-6.2); White Blood Count 6.3 K/mm3 (4.4-11.0)
[2024-10-14 07:19] LABS: Anion Gap 16 (5-15); BUN 55 mg/dL (4-19); BUN/Creat Ratio 38.9 RATIO (10-20); Calcium,Total 8.6 mg/dL (7.6-11.0); Carbon Dioxide 20.7 mmol/L (21.0-32.0); Chloride 101 mmol/L (98-108); Creatinine, Serum 1.42 mg/dL (0.70-1.20); EST Glomerular Filtration Rate 54 (>60); Estimated Creatinine Clearance 47.84 ml/min (50-250); Glucose 81 mg/dL (70-99); Potassium 4.2 mmol/L (3.3-5.1); Sodium Level 137 mmol/L (133-145)
[2024-10-14] MEDS: Aspirin 81 MG TAB.CHEW PO (07:26)
[2024-10-14] MEDS: Clopidogrel Bisulfate 75 MG Tablet PO (07:26)
--- NOTE | 2024-10-14 08:41 | PN.CARD_ITS ---
Subjective Subjective Patient is resting comfortably in the bed. He denies any back or arm discomfort which was his previous anginal equivalent prior to his bypass graft surgery several years ago. He had a cath in 2016 which showed all 4 of his grafts were patent. He has a ZUNIGA and a free radial and 2 vein grafts. The patient's EF on the echo here was 35% with basilar segmental wall motion abnormalities. His EKG showed diffuse ST segment depressions. His creatinine is increased from 1.3-2.3 on Lasix he did have probable contrast-induced nephropathy from his CTA. He also has a history of suprapubic catheter and a UTI with Klebsiella growing. Telemetry today shows normal sinus rhythm at 79 bpm. Objective Data Vital Signs: Vital Signs Temp Pulse Resp BP Pulse Ox O2 Del Method O2 Flow Rate 97.9 F 78 16 111/72 93 Nasal Cannula 5 10/14/24 03:15 10/14/24 03:15 10/14/24 03:15 10/14/24 03:15 10/14/24 03:15 10/14/24 03:15 10/14/24 03:15 FiO2 45 10/13/24 04:00 Oxygen Flow Rate (L/min) 5 Oxygen Delivery Method Nasal Cannula Weight: 149 lb 0.52 oz Body Mass Index (BMI) 23.3 Intake & Output: Intake and Output for Last 24 Hours 10/12/24 10/14/24 10/14/24 23:59 00:59 23:59 Intake Total 2830 / 2830 630 / 630 Output Total 1275 / 1525 2275 / 2275 300 / 300 Balance 1555 / 1305 -1645 / -1645 -300 / -300 Lab / Micro Data 10/14/24 04:49 10/14/24 04:49 Labs: Laboratory Results - last 24 hr 10/13/24 08:31: POC Glucose 156 H 10/13/24 08:45: WBC 7.6, RBC 3.57 L, Hgb 10.3 L, Hct 32.1 L, MCV 89.9, MCH 28.9, MCHC 32.1, RDW Std Deviation 48.5 H, RDW Coeff of Maia 14.9 H, Plt Count 215, MPV 10.5, Immature Gran % (Auto) 0.700, Neut % (Auto) 76.0 H, Lymph % (Auto) 9.6 L, [place] % (Auto) 12.0 H, Eos % (Auto) 1.4, Baso % (Auto) 0.3, Absolute Neuts (auto) 5.8, Absolute Lymphs (auto) 0.73 L, Nucleated RBC % 0, Sodium 134, Potassium 4.6, Chloride 97 L, Carbon Dioxide 22.2, Anion Gap 15, BUN 60 H, Creatinine 2.08 H, Estim Creat Clear Calc 32.66 L, Est GFR (MDRD) Non-Af 34 L, BUN/Creatinine Ratio 29.0 H, Glucose 169 H, Calcium 9.0, NT pro BNP II 8718 H 10/13/24 11:39: POC Glucose 146 H 10/13/24 16:38: POC Glucose 212 H 10/13/24 21:05: POC Glucose 234 H 10/14/24 04:49: WBC 6.3, RBC 3.29 L, Hgb 9.4 L, Hct 28.8 L, MCV 87.5, MCH 28.6, MCHC 32.6, RDW Std Deviation 46.5 H, RDW Coeff of Maia 14.5, Plt Count 222, MPV 10.2, Immature Gran % (Auto) 0.500, Neut % (Auto) 76.2 H, Lymph % (Auto) 8.2 L, [place] % (Auto) 12.5 H, Eos % (Auto) 2.4, Baso % (Auto) 0.2, Absolute Neuts (auto) 4.8, Absolute Lymphs (auto) 0.52 L, Nucleated RBC % 0, Sodium 137, Potassium 4.2, Chloride 101, Carbon Dioxide 20.7 L, Anion Gap 16 H, BUN 55 H, Creatinine 1.42 H, Estim Creat Clear Calc 47.84 L, Est GFR (MDRD) Non-Af 54 L, B UN/Creatinine Ratio 38.9 H, Glucose 81, Calcium 8.6 Micro: Microbiology 10/10/24 03:18 Urine Catheter - Robb Urine Culture - Final Klebsiella pneumoniae sp pneum Presumptive C albicans Escherichia coli Rhythm Strip Rhythm Strip: Sinus Rhythm Rate: 79 Cardiology Labs/Tests 10/13/24 08:45: WBC 7.6, RBC 3.57 L, Hgb 10.3 L, Hct 32.1 L, MCV 89.9, MCH 28.9, MCHC 32.1, Plt Count 215, MPV 10.5, Immature Gran % (Auto) 0.700, Neut % (Auto) 76.0 H, Lymph % (Auto) 9.6 L, [place] % (Auto) 12.0 H, Eos % (Auto) 1.4, Baso % (Auto) 0.3, Absolute Neuts (auto) 5.8, Nucleated RBC % 0, Sodium 134, Potassium 4.6, Chloride 97 L, Carbon Dioxide 22.2, Anion Gap 15, BUN 60 H, Creatinine 2.08 H, Est GFR (MDRD) Non-Af 34 L, BUN/Creatinine Ratio 29.0 H, Glucose 169 H, Calcium 9.0 10/14/24 04:49: WBC 6.3, RBC 3.29 L, Hgb 9.4 L, Hct 28.8 L, MCV 87.5, MCH 28.6, MCHC 32.6, Plt Count 222, MPV 10.2, Immature Gran % (Auto) 0.500, Neut % (Auto) 76.2 H, Lymph % (Auto) 8.2 L, [place] % (Auto) 12.5 H, Eos % (Auto) 2.4, Baso % (Auto) 0.2, Absolute Neuts (auto) 4.8, Nucleated RBC % 0, Sodium 137, Potassium 4.2, Chloride 101, Carbon Dioxide 20.7 L, Anion Gap 16 H, BUN 55 H, Creatinine 1.42 H, Est GFR (MDRD) Non-Af 54 L, BUN/Creatinine Ratio 38.9 H, Glucose 81, Calcium 8.6 Rhythm: EKG: ECHO: Stress Test: Cardiac Cath: PCI: CT Surgery: Holter monitor: EPS: PPM: CXR: Chest CT Scan: Radiography Diagnostic Testing: Radiology Impression Chest X-Ray 10/13/24 10:51 IMPRESSION: Unchanged bilateral perihilar opacities, likely infection/inflammatory etiology. Development of at least moderate bilateral pleural effusions. Reading Location: [facility] Physical Exam Const alert HEENT normocephalic Neck Neck Narrative: Patient wearing nasal cannula. Chest inspection of chest normal Resp normal respiratory effort Auscultation: rhonchi throughout Cardio regular rate, regular rhythm, S1 normal heart sound, S2 normal heart sound, no murmurs, no rub and no gallops Cardio Narrative: Distant heart tones difficult to auscultate GI GI Narrative: Left quadrant colostomy and suprapubic catheter. Extremity no pedal edema Neuro Neuro Narrative: Alert Psych mental status grossly normal Assessment & Plan Assessment/Plan (1) Combined systolic and diastolic congestive heart failure: QUALIFIERS: Heart failure chronicity: acute on chronic Qualified Code(s): I50.43 - Acute on chronic combined systolic (congestive) and diastolic (congestive) heart failure PLAN: Patient is EF 35% but he also has diastolic dysfunction. Recommend continuing current medical management. Agree with hydralazine and nitrates for afterload reduction and carvedilol 6.25 mg twice daily along with his Lasix. If the patient's renal function recovers would consider switching to hydralazine nitrate combination to ARB therapy. (2) Non-ST elevated myocardial infarction (non-STEMI): PLAN: Patient is EKG is consistent with ischemia on his initial presentation. However, he has known small vessel disease and was an extremis with hypoxia this probably represents a type II event. But his LV dysfunction has worsened. Would recommend pursuing a pharmacologic nuclear stress test once the patient's status has stabilized. (3) Acute kidney injury: PLAN: Plan Creatinine is improved from 2.08 on 3 9 down to 1.49 this morning. Will continue to monitor the patient's renal function. Charges/Coding Visit Charges Inpatient E&M: 65467 Subs Hosp L2
--- NOTE | 2024-10-14 09:36 | PCM.PN.HOSP ---
Reason for Visit Reason for Visit: Diagnoses Sepsis, unspecified organism (10/10/24) Acidosis, unspecified (10/10/24) Non-ST elevation (NSTEMI) myocardial infarction (10/10/24) Atherosclerotic heart disease of [place] coronary artery without angina pectoris (10/10/24) Unspecified combined systolic (congestive) and diastolic (congestive) heart failure (10/10/24) Acute on chronic combined systolic (congestive) and diastolic (congestive) heart failure (10/10/24) Acute respiratory failure with hypoxia (10/10/24) Acute kidney failure, unspecified (10/10/24) Urinary tract infection, site not specified (10/10/24) Subjective Subjective Patient sitting up in chair, reports he felt more short of breath earlier when he was lying semirecumbent but is feeling better sitting up in chair, not presently complaining of chest pain Objective Data Objective Data Vital Signs: Vital Signs Temp Pulse Resp BP Pulse Ox O2 Del Method O2 Flow Rate 97.9 F 78 16 111/72 93 Nasal Cannula 5 10/14/24 03:15 10/14/24 03:15 10/14/24 03:15 10/14/24 03:15 10/14/24 03:15 10/14/24 03:15 10/14/24 03:15 FiO2 45 10/13/24 04:00 Oxygen Flow Rate (L/min) 5 Oxygen Delivery Method Nasal Cannula Weight: 67.6 kg Body Mass Index (BMI) 23.3 Intake & Output: Intake and Output for Last 24 Hours 10/12/24 10/14/24 10/14/24 23:59 00:59 23:59 Intake Total 2830 / 2830 630 / 630 Output Total 1275 / 1525 2275 / 2275 300 / 300 Balance 1555 / 1305 -1645 / -1645 -300 / -300 Lab / Micro Data 10/14/24 04:49 10/14/24 04:49 Labs: Laboratory Results - last 24 hr 10/13/24 08:31: POC Glucose 156 H 10/13/24 08:45: Sodium 134, Potassium 4.6, Chloride 97 L, Carbon Dioxide 22.2, Anion Gap 15, BUN 60 H, Creatinine 2.08 H, Estim Creat Clear Calc 32.66 L, Est GFR (MDRD) Non-Af 34 L, BUN/Creatinine Ratio 29.0 H, Glucose 169 H, Calcium 9.0, NT pro BNP II 8718 H 10/13/24 11:39: POC Glucose 146 H 10/13/24 16:38: POC Glucose 212 H 10/13/24 21:05: POC Glucose 234 H 10/14/24 04:49: WBC 6.3, RBC 3.29 L, Hgb 9.4 L, Hct 28.8 L, MCV 87.5, MCH 28.6, MCHC 32.6, RDW Std Deviation 46.5 H, RDW Coeff of Maia 14.5, Plt Count 222, MPV 10.2, Immature Gran % (Auto) 0.500, Neut % (Auto) 76.2 H, Lymph % (Auto) 8.2 L, [place] % (Auto) 12.5 H, Eos % (Auto) 2.4, Baso % (Auto) 0.2, Absolute Neuts (auto) 4.8, Absolute Lymphs (auto) 0.52 L, Nucleated RBC % 0, Sodium 137, Potassium 4.2, Chloride 101, Carbon Dioxide 20.7 L, Anion Gap 16 H, BUN 55 H, Creatinine 1.42 H, Estim Creat Clear Calc 47.84 L, Est GFR (MDRD) Non-Af 54 L, BUN/Creatinine Ratio 38.9 H, Glucose 81, Calcium 8.6 Micro: Microbiology 10/10/24 03:18 Urine Catheter - Robb Urine Culture - Final Klebsiella pneumoniae sp pneum Presumptive C albicans Escherichia coli 10/10/24 01:50 Blood Culture (Wb) - Anticubital Right Blood Culture - Preliminary No growth in 48 hours. 10/10/24 01:37 Blood Culture (Wb) - Anticubital Left Blood Culture - Preliminary No growth in 48 hours. 10/10/24 03:05 Mucosa - Nasopharyngeal Respiratory Panel (PCR) - Final 10/10/24 03:18 Urine Catheter - Catheter Streptococcus pneumoniae Antigen (M - Final 10/10/24 03:18 Urine Catheter - Robb Legionella Antigen - Final 10/10/24 01:40 Mucosa - Nose SARS-CoV-2, Influenza & RSV (PCR) - Final Radiography Diagnostic Testing: Radiology Impression Chest X-Ray 10/13/24 10:51 IMPRESSION: Unchanged bilateral perihilar opacities, likely infection/inflammatory etiology. Development of at least moderate bilateral pleural effusions. Reading Location: [facility] Rhythm Strip Rhythm Strip: Sinus Rhythm Rate: 79 Physical Exam Narrative General: Alert, no apparent distress HEENT: Atraumatic, normocephalic Eyes: Anicteric, Neck: Supple Respiratory: Diminished bilaterally, no significant respiratory distress Cardiovascular: Regular rate GI: Soft, nontender, nondistended Extremities: No significant pitting edema Musculoskeletal: Moving all extremities Neuro: No overt focal neurological deficits Skin: No rashes appreciated Psych: Cooperative Assessment & Plan Assessment/Plan (1) Combined systolic and diastolic congestive heart failure: QUALIFIERS: Heart failure chronicity: acute on chronic Qualified Code(s): I50.43 - Acute on chronic combined systolic (congestive) and diastolic (congestive) heart failure PLAN: Plan # Elevated troponin -Patient's EKG with diffuse ST segment depressions, echo showed EF of 35% with basilar segmental wall motion abnormalities -Continuing patient on aspirin, Plavix, statin, carvedilol added -Given patient's clinical status and MADELEINE the recommendation is for pharmacologic nuclear stress test once stabilized however discussed today with cardiology and given patient's continued oxygen requirements and acute illness as well as UTI and antibiotics, cardiology recommending that patient may benefit from further workup on outpatient basis once he is optimized. -Reevaluate patient in a.m. # MADELEINE -Baseline renal function with creatinine of 0.6-0.7, on admission creatinine 1.39 and jumped further to 2.11, lisinopril held and Lasix drip discontinued and nephrology consulted, felt that this was multifactorial and began to improve again -Patient resumed on IV Lasix given worsening respiratory status with resumption on 10/13 -Repeat creatinine in a.m., monitor volume status # Chronic suprapubic catheter with abnormal UA and urine culture -Patient on Rocephin, patient grew Klebsiella and E. coli in urine although these were low colony counts -ID following, plan will be short course of p.o. antibiotics on discharge # Acute hypoxic respiratory failure -Patient was 86% on room air and required Airvo -Patient back on IV Lasix as of 10/13, monitor kidney function respiratory status #Hx CAD w/ CABG/history of right CEA/history of stroke/history of PAD -CABG several years ago and heart cath in 2016 which showed all 4 of his grafts were patent -Continue aspirin, Plavix, statin # Acute exacerbation of combined heart failure -Patient's EF here 35% with basilar segmental wall motion abnormalities and stage III diastolic dysfunction -Cardiology following, continue diuretics -Continue to monitor volume status -2+ MR #Type 2 diabetes mellitus -Glucose checks and sliding scale insulin -Continue to adjust patient's long-acting and short acting as needed #ALEJANDRO -Continue home NIPPV if applicable #GERD -Continue PPI #Depression/anxiety -Continue home medications #DVT ppx: SCDs Nicole Smith MD Charges/Coding Visit Charges Inpatient E&M: 50230 Subs Hosp L2
[2024-10-14] MEDS: 0.9% Saline Lock 10 ML Syringe IV ×4 (10:20→21:38)
[2024-10-14] MEDS: Ceftriaxone 2 GM in 0.9% Normal Saline (50mL MB+) 50 ML IV (10:20)
[2024-10-14 11:16] LABS: Bedside Glucose 70 mg/dL (74-106)
[2024-10-14] MEDS: Furosemide 40 MG/4 ML Vial IV ×2 (11:43→17:24)
[2024-10-14] MEDS: Pantoprazole Sodium 40 MG Tablet PO (11:44)
[2024-10-14] MEDS: DULoxetine Hcl 30 MG Capsule PO (11:44)
[2024-10-14] MEDS: Gabapentin 300 MG Capsule PO (11:50)
--- NOTE | 2024-10-14 12:51 | PCM.PN.ID ---
Physical Exam Narrative Feeling better, no fever, no n/v/d, no abd pain. Const alert and no apparent distress General Appearance: cooperative Resp normal air movement and clear to auscultation bilaterally Cardio regular rate and regular rhythm GI soft to palpation, non-tender and non-distended Extremity General Extremity: edema Skin no rashes or lesions noted ID ID: Route of nutrition/ use of supplements: [] Nutritional Intake: [] IV Site: [] Robb Catheter: [] Assessment & Plan Assessment/Plan (1) Combined systolic and diastolic congestive heart failure: (2) Acute kidney injury: (3) UTI (urinary tract infection): PLAN: Ucx with klebs, cameron, ecoli. Will cont with ceftriaxone. Recent ucx with klebs. Plan on short course po abx at discharge. MADELEINE improved. Will follow
[2024-10-14] MEDS: hydrALAZINE 10 MG Tablet PO ×3 (15:25→21:33)
[2024-10-14 17:03] LABS: Bedside Glucose 161 mg/dL (74-106)
[2024-10-14] MEDS: Insulin Lispro 100 UNIT/ML INSULN.PEN SC (17:23)
[2024-10-14] MEDS: Insulin Lispro 100 UNIT/ML INSULN.PEN 20 UNIT SC (17:23)
[2024-10-14] MEDS: Carvedilol 6.25 MG Tablet PO (17:24)
[2024-10-14] MEDS: Nitroglycerin Oint 1 INCH PACKET TD (17:24)
--- NOTE | 2024-10-14 19:13 | PN.RENAL_ITS ---
Subjective Subjective no new events Objective Data Objective Data Vital Signs: Vital Signs Temp Pulse Resp BP Pulse Ox O2 Del Method O2 Flow Rate 97.6 F L 91 18 157/85 H 96 Nasal Cannula 5 10/14/24 15:30 10/14/24 17:24 10/14/24 15:30 10/14/24 15:30 10/14/24 15:30 10/14/24 15:30 10/14/24 15:30 FiO2 45 10/13/24 04:00 Oxygen Flow Rate (L/min) 5 Oxygen Delivery Method Nasal Cannula Weight: 67.6 kg Body Mass Index (BMI) 23.3 Intake & Output: Intake and Output for Last 24 Hours 10/12/24 10/14/24 10/14/24 23:59 00:59 23:59 Intake Total 2830 / 2830 630 / 630 470 / 470 Output Total 1275 / 1525 2275 / 2275 2350 / 2350 Balance 1555 / 1305 -1645 / -1645 -1880 / -1880 Lab / Micro Data 10/14/24 04:49 10/14/24 04:49 Labs: Laboratory Results - last 24 hr 10/13/24 21:05: POC Glucose 234 H 10/14/24 04:49: WBC 6.3, RBC 3.29 L, Hgb 9.4 L, Hct 28.8 L, MCV 87.5, MCH 28.6, MCHC 32.6, RDW Std Deviation 46.5 H, RDW Coeff of Maia 14.5, Plt Count 222, MPV 10.2, Immature Gran % (Auto) 0.500, Neut % (Auto) 76.2 H, Lymph % (Auto) 8.2 L, [place] % (Auto) 12.5 H, Eos % (Auto) 2.4, Baso % (Auto) 0.2, Absolute Neuts (auto) 4.8, Absolute Lymphs (auto) 0.52 L, Nucleated RBC % 0, Sodium 137, Potassium 4.2, Chloride 101, Carbon Dioxide 20.7 L, Anion Gap 16 H, BUN 55 H, Creatinine 1.42 H, Estim Creat Clear Calc 47.84 L, Est GFR (MDRD) Non-Af 54 L, B UN/Creatinine Ratio 38.9 H, Glucose 81, Calcium 8.6 10/14/24 10:57: POC Glucose 70 L 10/14/24 16:38: POC Glucose 161 H Micro: Microbiology 10/10/24 03:18 Urine Catheter - Robb Urine Culture - Final Klebsiella pneumoniae sp pneum Presumptive C albicans Escherichia coli 10/10/24 01:50 Blood Culture (Wb) - Anticubital Right Blood Culture - Preliminary No growth in 48 hours. 10/10/24 01:37 Blood Culture (Wb) - Anticubital Left Blood Culture - Preliminary No growth in 48 hours. 10/10/24 03:05 Mucosa - Nasopharyngeal Respiratory Panel (PCR) - Final 10/10/24 03:18 Urine Catheter - Catheter Streptococcus pneumoniae Antigen (M - Final 10/10/24 03:18 Urine Catheter - Robb Legionella Antigen - Final 10/10/24 01:40 Mucosa - Nose SARS-CoV-2, Influenza & RSV (PCR) - Final Rhythm Strip Rhythm Strip: Sinus Rhythm Rate: 79 Physical Exam Narrative Alert awake oriented x 3 no obvious distress no pallor no icterus no JVD s1s2 no murmurs lungs clear abdomen soft no organomegaly no edema no cyanosis Suprapubic Assessment & Plan Assessment/Plan (1) Acute kidney injury: PLAN: Baseline creatinine around 0.6-0.7. CT abdomen without any hydronephrosis. Urine analysis suggestive of UTI. He did receive a CT PE protocol study Likely ATN cr better
[2024-10-14] MEDS: Atorvastatin Calcium 20 MG Tablet PO (21:32)
[2024-10-14] MEDS: MELATONIN 10 MG TABLET PO (21:33)
[2024-10-14] MEDS: Tamsulosin HCl 0.4 MG Capsule 0.8 MG PO (21:33)
[2024-10-14 22:40] LABS: Bedside Glucose 98 mg/dL (74-106)
[2024-10-15] VITALS (12 sets, daily range): BP systolic 128–153; BP diastolic 69–88; PULSE 73–92; RESP 14–18; TEMP 35.8–36.7; O2SAT 94–100; BMI 24.6
[2024-10-15] MEDS: Acetaminophen 325 MG Tablet 650 MG PO ×2 (02:13→23:38)
[2024-10-15 02:35] LABS: Bedside Glucose 97 mg/dL (74-106)
[2024-10-15 06:24] LABS: Bedside Glucose 77 mg/dL (74-106)
[2024-10-15 06:41] LABS: Absolute Lymphocyte Count 0.48 X10^3/uL (0.83-4.51); Absolute Neutrophil Count 3.9 X10^3/uL (2.0-7.7); Basophil# 0.01 X10^3/uL; Basophil% 0.2 % (0-1); Eosinophil# 0.16 X10^3/uL; Hematocrit 30.6 % (40-54); Hemoglobin 10.1 g/dL (13.0-16.5); Lymphocyte # 0.48 X10^3/ul (0.83-4.51); Lymphocyte % 8.9 % (19-41); Mean Corpuscular Volume 87.9 fL (80-94); Monocyte# 0.78 X10^3/uL; Monocyte% 14.5 % (0-10); NRBC Flagged by Analyzer 0 % (0-5); Neutrophil # 3.91 X10^3/uL (2.7-7.7); Neutrophil % 72.8 % (47-70); POSITIVE DIFFERENTIAL YES; Platelet Count 254 K/mm3 (150-450); RBC Distribution Width CV 14.7 % (11.6-14.6); RBC Distribution Width SD 47.1 fl (35.1-43.9); Red Blood Count 3.48 M/mm3 (4.6-6.2); White Blood Count 5.4 K/mm3 (4.4-11.0)
[2024-10-15 07:04] LABS: Magnesium 1.5 mg/dL (1.5-2.2)
[2024-10-15 07:15] LABS: Anion Gap 12 (5-15); BUN 33 mg/dL (4-19); BUN/Creat Ratio 36.8 RATIO (10-20); Calcium,Total 8.8 mg/dL (7.6-11.0); Carbon Dioxide 25.3 mmol/L (21.0-32.0); Chloride 99 mmol/L (98-108); Creatinine, Serum 0.89 mg/dL (0.70-1.20); EST Glomerular Filtration Rate 95 (>60); Estimated Creatinine Clearance 76.33 ml/min (50-250); Glucose 71 mg/dL (70-99); Potassium 3.6 mmol/L (3.3-5.1); Sodium Level 137 mmol/L (133-145)
--- NOTE | 2024-10-15 08:05 | PN.CARD_ITS ---
Subjective Subjective Patient resting comfortably in the bed on his BiPAP. He wears it for sleep. Patient's telemetry has been alarming atrial fibs and irregular rhythm but I reviewed multiple rhythm strips and this is sinus rhythm with frequent PACs. Objective Data Vital Signs: Vital Signs Temp Pulse Resp BP Pulse Ox O2 Del Method O2 Flow Rate 96.5 F L 73 16 128/69 H 96 Bi-pap 5 10/15/24 06:49 10/15/24 06:50 10/15/24 06:50 10/15/24 06:49 10/15/24 06:50 10/15/24 06:53 10/14/24 21:30 FiO2 45 10/15/24 06:50 Oxygen Flow Rate (L/min) 5 Oxygen Delivery Method Bi-pap Weight: 157 lb 3.033 oz Body Mass Index (BMI) 24.6 Intake & Output: Intake and Output for Last 24 Hours 10/14/24 10/14/24 10/15/24 00:59 23:59 23:59 Intake Total 630 / 630 470 / 470 Output Total 2275 / 2275 2350 / 2350 125 / 125 Balance -1645 / -1645 -1880 / -1880 -125 / -125 Lab / Micro Data 10/15/24 05:54 10/15/24 05:54 Labs: Laboratory Results - last 24 hr 10/14/24 10:57: POC Glucose 70 L 10/14/24 16:38: POC Glucose 161 H 10/14/24 21:28: POC Glucose 98 10/15/24 02:07: POC Glucose 97 10/15/24 05:54: WBC 5.4, RBC 3.48 L, Hgb 10.1 L, Hct 30.6 L, MCV 87.9, MCH 29.0, MCHC 33.0, RDW Std Deviation 47.1 H, RDW Coeff of Maia 14.7 H, Plt Count 254, MPV 10.0, Immature Gran % (Auto) 0.600, Neut % (Auto) 72.8 H, Lymph % (Auto) 8.9 L, [place] % (Auto) 14.5 H, Eos % (Auto) 3.0, Baso % (Auto) 0.2, Absolute Neuts (auto) 3.9, Absolute Lymphs (auto) 0.48 L, Nucleated RBC % 0, Sodium 137, Potassium 3.6, Chloride 99, Carbon Dioxide 25.3, Anion Gap 12, BUN 33 H, Creatinine 0.89, Estim Creat Clear Calc 76.33, Est GFR (MDRD) Non-Af 95, BUN/Creatinine Ratio 36.8 H, Glucose 71, Calcium 8.8, Magnesium 1.5 10/15/24 06:04: POC Glucose 77 Micro: Microbiology 10/10/24 01:50 Blood Culture (Wb) - Anticubital Right Blood Culture - Final No growth in 5 days. 10/10/24 01:37 Blood Culture (Wb) - Anticubital Left Blood Culture - Final No growth in 5 days. Rhythm Strip Rhythm Strip: Sinus Rhythm Rate: 76 Ectopy: PAC(s) (Frequent PACs being alarmed his atrial fibs on the rhythm strips.) Cardiology Labs/Tests 10/15/24 05:54: WBC 5.4, RBC 3.48 L, Hgb 10.1 L, Hct 30.6 L, MCV 87.9, MCH 29.0, MCHC 33.0, Plt Count 254, MPV 10.0, Immature Gran % (Auto) 0.600, Neut % (Auto) 72.8 H, Lymph % (Auto) 8.9 L, [place] % (Auto) 14.5 H, Eos % (Auto) 3.0, Baso % (Auto) 0.2, Absolute Neuts (auto) 3.9, Nucleated RBC % 0, Sodium 137, Potassium 3.6, Chloride 99, Carbon Dioxide 25.3, Anion Gap 12, BUN 33 H, Creatinine 0.89, Est GFR (MDRD) Non-Af 95, BUN/Creatinine Ratio 36.8 H, Glucose 71, Calcium 8.8, Magnesium 1.5 Rhythm: EKG: ECHO: Stress Test: Cardiac Cath: PCI: CT Surgery: Holter monitor: EPS: PPM: CXR: Chest CT Scan: Physical Exam Narrative Elderly white male resting on his side with his BiPAP in place. Const alert HEENT normocephalic Eyes PERRL Chest inspection of chest normal Resp normal respiratory effort Resp Narrative: Respirations were clear anteriorly. Cardio Rate: regular rate Rhythm: abnormal rhythm ectopic beats (Frequent PACs documented on the rhythm strips.) Heart Sounds: S1 normal and S2 normal; Negative for click, gallop or murmur GI soft to palpation Extremity no pedal edema Neuro Neuro Narrative: Sleeping but easily arousable and alert. Assessment & Plan Assessment/Plan (1) Combined systolic and diastolic congestive heart failure: QUALIFIERS: Heart failure chronicity: acute on chronic Qualified Code(s): I50.43 - Acute on chronic combined systolic (congestive) and diastolic (congestive) heart failure PLAN: Patient is tolerating guideline directed medical therapy with his Coreg 6.25 mg twice daily, combination of hydralazine 10 mg every 6 hours and nitroglycerin 1 inch paste every 6. This will need to be switched to Imdur 30 mg daily when discharged. He is also on IV Lasix which will need to be transition to p.o. prior to discharge. (2) Non-ST elevated myocardial infarction (non-STEMI): PLAN: The patient continues a slow improvement from his respiratory status. He denies any anginal type symptoms. His troponins were elevated in the 300?400 range. His LVEF is known to be in the 35% range with circumferential basilar hypokinesis. He is status post multivessel coronary bypass graft surgery remotely. Given his current overall general medical situation with his acute renal insufficiency, his respiratory insufficiency, and his general debilitated state I do not feel that further invasive evaluation for cardiac issues would be indicated at this time. For that reason I do not feel that pursuing a pharmacologic stress test is indicated until he is recovered from his respiratory issues. I would recommend that we defer any evaluation from cardiac standpoint for at least a month after he is completely recovered from his respiratory decompensation and acute renal injury. He will be reevaluated in the office once he is recovered and then decision will be made about further testing as indicated at that time pending his clinical situation. From a cardiovascular standpoint we will sign off if further assistance is needed during the hospitalization please call otherwise he should follow-up in the office in 4 to 6 weeks once he is completely recovered. (3) Acute kidney injury: PLAN: Patient's creatinine appears to have recovered. I would recommend that he stay on a combination of nitrates and hydralazine for the next 4 to 6 weeks. If his renal function remains stable we will probably consider switching him to ARB therapy in the ambulatory setting. PLAN: Plan 1. Would not pursue further cardiac testing at this time. 2. Will follow-up in the office in 4 to 6 weeks after he is completely recovered. 3. Can consider switching from hydralazine and nitrates to ARB therapy. If not done during this hospitalization we can do it in the 4 to 6-week range once he is reevaluated. Charges/Coding Visit Charges Inpatient E&M: 63702 Subs Hosp L2
[2024-10-15 08:13] LABS: Bedside Glucose 70 mg/dL (74-106)
--- NOTE | 2024-10-15 09:02 | PN.HOSP_ITS ---
Reason for Visit Reason for Visit: Diagnoses Sepsis, unspecified organism (10/10/24) Acidosis, unspecified (10/10/24) Non-ST elevation (NSTEMI) myocardial infarction (10/10/24) Atherosclerotic heart disease of [place] coronary artery without angina pectoris (10/10/24) Unspecified combined systolic (congestive) and diastolic (congestive) heart failure (10/10/24) Acute on chronic combined systolic (congestive) and diastolic (congestive) heart failure (10/10/24) Acute respiratory failure with hypoxia (10/10/24) Acute kidney failure, unspecified (10/10/24) Urinary tract infection, site not specified (10/10/24) Subjective Subjective Patient sitting up in chair, reports he is more comfortable sitting up with his breathing and laying down did not wear the NIPPV last night, still short of breath but slightly better than it was, no chest pain or other acute complaints, no swelling in feet Objective Data Objective Data Vital Signs: Vital Signs Temp Pulse Resp BP Pulse Ox O2 Del Method O2 Flow Rate 96.5 F L 73 16 128/69 H 96 Bi-pap 5 10/15/24 06:49 10/15/24 06:50 10/15/24 06:50 10/15/24 06:49 10/15/24 06:50 10/15/24 08:08 10/14/24 21:30 FiO2 45 10/15/24 06:50 Oxygen Flow Rate (L/min) 5 Oxygen Delivery Method Bi-pap Weight: 71.3 kg Body Mass Index (BMI) 24.6 Intake & Output: Intake and Output for Last 24 Hours 10/14/24 10/14/24 10/15/24 00:59 23:59 23:59 Intake Total 630 / 630 470 / 470 Output Total 2275 / 2275 2350 / 2350 125 / 125 Balance -1645 / -1645 -1880 / -1880 -125 / -125 Lab / Micro Data 10/15/24 05:54 10/15/24 05:54 Labs: Laboratory Results - last 24 hr 10/14/24 10:57: POC Glucose 70 L 10/14/24 16:38: POC Glucose 161 H 10/14/24 21:28: POC Glucose 98 10/15/24 02:07: POC Glucose 97 10/15/24 05:54: WBC 5.4, RBC 3.48 L, Hgb 10.1 L, Hct 30.6 L, MCV 87.9, MCH 29.0, MCHC 33.0, RDW Std Deviation 47.1 H, RDW Coeff of Maia 14.7 H, Plt Count 254, MPV 10.0, Immature Gran % (Auto) 0.600, Neut % (Auto) 72.8 H, Lymph % (Auto) 8.9 L, [place] % (Auto) 14.5 H, Eos % (Auto) 3.0, Baso % (Auto) 0.2, Absolute Neuts (auto) 3.9, Absolute Lymphs (auto) 0.48 L, Nucleated RBC % 0, Sodium 137, Potassium 3.6, Chloride 99, Carbon Dioxide 25.3, Anion Gap 12, BUN 33 H, Creatinine 0.89, Estim Creat Clear Calc 76.33, Est GFR (MDRD) Non-Af 95, BUN/Creatinine Ratio 36.8 H, Glucose 71, Calcium 8.8, Magnesium 1.5 10/15/24 06:04: POC Glucose 77 10/15/24 07:50: POC Glucose 70 L Micro: Microbiology 10/10/24 01:50 Blood Culture (Wb) - Anticubital Right Blood Culture - Final No growth in 5 days. 10/10/24 01:37 Blood Culture (Wb) - Anticubital Left Blood Culture - Final No growth in 5 days. 10/10/24 03:18 Urine Catheter - Robb Urine Culture - Final Klebsiella pneumoniae sp pneum Presumptive C albicans Escherichia coli 10/10/24 03:05 Mucosa - Nasopharyngeal Respiratory Panel (PCR) - Final 10/10/24 03:18 Urine Catheter - Catheter Streptococcus pneumoniae Antigen (M - Final 10/10/24 03:18 Urine Catheter - Robb Legionella Antigen - Final 10/10/24 01:40 Mucosa - Nose SARS-CoV-2, Influenza & RSV (PCR) - Final Rhythm Strip Rhythm Strip: Sinus Rhythm Rate: 76 Ectopy: PAC(s) (Frequent PACs being alarmed his atrial fibs on the rhythm strips.) Physical Exam Narrative General: Alert, no apparent distress HEENT: Atraumatic, normocephalic Eyes: Anicteric, Neck: Supple Respiratory: Some crackles at bases, no significant respiratory distress Cardiovascular: Regular rate GI: Soft, nontender, nondistended Extremities: No significant pitting edema Musculoskeletal: Moving all extremities Neuro: No overt focal neurological deficits Skin: No rashes appreciated Psych: Cooperative Assessment & Plan Assessment/Plan (1) Combined systolic and diastolic congestive heart failure: QUALIFIERS: Heart failure chronicity: acute on chronic Qualified Code(s): I50.43 - Acute on chronic combined systolic (congestive) and diastolic (congestive) heart failure PLAN: Plan # Elevated troponin -Patient's EKG with diffuse ST segment depressions, echo showed EF of 35% with basilar segmental wall motion abnormalities -Continuing patient on aspirin, Plavix, statin, carvedilol added -Given patient's clinical status and MADELEINE the recommendation is for pharmacologic nuclear stress test once stabilized however discussed today with cardiology and given patient's continued oxygen requirements and acute illness as well as UTI and antibiotics, cardiology recommending that patient may benefit from further workup on outpatient basis once he is optimized. -Reevaluate patient in a.m. -10/15: Patient stable from cardiac standpoint at this time and it was recommended that patient follow-up outpatient in a month to allow time for respiratory status to improve and further evaluation management can be discussed at that time, will transition patient's Nitropaste to Imdur 30 on discharge and plan will be to follow-up with cardiology # MADELEINE-resolved -Baseline renal function with creatinine of 0.6-0.7, on admission creatinine 1.39 and jumped further to 2.11, lisinopril held and Lasix drip discontinued and nephrology consulted, felt that this was multifactorial and began to improve again -Patient resumed on IV Lasix given worsening respiratory status with resumption on 10/13 -Repeat creatinine in a.m., monitor volume status -10/15: Kidney function improved significantly with creatinine 0.83 even with diuresis, will continue IV diuresis today, may be able to consider switching to p.o. tomorrow if respiratory status improving, still on high amounts of oxygen is not yet safe for discharge. Nephrology did evaluate and felt that kidney function decline likely due to ATN especially given he had a CTA prior to this episode # Chronic suprapubic catheter with abnormal UA and urine culture -Patient on Rocephin, patient grew Klebsiella and E. coli in urine although these were low colony counts -ID following, plan will be short course of p.o. antibiotics on discharge -10/15: Patient improving, plan for short course of oral antibiotics on discharge, patient evaluated by infectious disease # Acute hypoxic respiratory failure -Patient was 86% on room air and required Airvo -Patient back on IV Lasix as of 10/13, monitor kidney function respiratory status -10/15: Tolerating IV Lasix well, patient wore BiPAP overnight as he does have sleep apnea and wears NIPPV at home, yesterday was on 5 L most of the day, work on weaning down oxygen and once patient able to safely mobilize with an O2 requirement safe for home we will consider discharge # Acute exacerbation of combined heart failure -Patient's EF here 35% with basilar segmental wall motion abnormalities and stage III diastolic dysfunction -Cardiology following, continue diuretics -Continue to monitor volume status -2+ MR -10/15: Hemodynamics and kidney function tolerating IV Lasix #Type 2 diabetes mellitus -Glucose checks and sliding scale insulin -Continue to adjust patient's long-acting and short acting as needed -10/15: Patient's glucose 70 today despite not being n.p.o., will hold scheduled Premeal and decrease long-acting, uptitrate as able/tolerated Chronic medical problems: #Hx CAD w/ CABG/history of right CEA/history of stroke/history of PAD -CABG several years ago and heart cath in 2016 which showed all 4 of his grafts were patent -Continue aspirin, Plavix, statin #ALEJANDRO -Continue home NIPPV if applicable #GERD -Continue PPI #Depression/anxiety -Continue home medications #DVT ppx: SCDs Nicole Smith MD Charges/Coding Visit Charges Inpatient E&M: 02809 Subs Hosp L2
--- NOTE | 2024-10-15 09:07 | WOUNDNOTE ---
Was asked to see patient for colostomy/urostomy. 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 pt with a suprapubic catheter as well. this was changed on 10/11/[address] Ritchie. there is a small amount of yellow drainage around the catheter. this is not unusual. no erythema noted to site. Pt was admitted for a UTI. applied a dry dressing to the left abdomen stoma. pt states he typically does not place a split gauze around the suprapubic. would place on prn for drainage. ostomy appliance was changed last evening per nursing. will monitor as needed. pt denies needs at this time. states patient and care for them at home.
[2024-10-15] MEDS: Pantoprazole Sodium 40 MG Tablet PO (10:16)
[2024-10-15] MEDS: DULoxetine Hcl 30 MG Capsule PO (10:16)
[2024-10-15] MEDS: Aspirin 81 MG TAB.CHEW PO (10:16)
[2024-10-15] MEDS: Furosemide 40 MG/4 ML Vial IV ×2 (10:16→17:47)
[2024-10-15] MEDS: Clopidogrel Bisulfate 75 MG Tablet PO (10:16)
[2024-10-15] MEDS: Carvedilol 6.25 MG Tablet PO ×2 (10:16→17:46)
[2024-10-15] MEDS: Gabapentin 300 MG Capsule PO (10:16)
[2024-10-15] MEDS: hydrALAZINE 10 MG Tablet PO ×4 (10:16→23:26)
[2024-10-15] MEDS: Insulin Glargine-YFGN 100 UNIT/ML Pen 40 UNIT SC ×2 (10:17→23:48)
[2024-10-15] MEDS: Ceftriaxone 2 GM in 0.9% Normal Saline (50mL MB+) 50 ML IV (10:17)
[2024-10-15] MEDS: 0.9% Saline Lock 10 ML Syringe IV ×2 (10:18→17:48)
--- NOTE | 2024-10-15 10:50 | PCM.PN.ID ---
Physical Exam Narrative Feeling better, no fever, no n/v/d. Const alert and no apparent distress General Appearance: cooperative Resp normal air movement and clear to auscultation bilaterally Cardio regular rate and regular rhythm GI soft to palpation, non-tender and non-distended Extremity General Extremity: Negative for edema Skin no rashes or lesions noted ID ID: Route of nutrition/ use of supplements: [] Nutritional Intake: [] IV Site: [] Robb Catheter: [] Assessment & Plan Assessment/Plan (1) Combined systolic and diastolic congestive heart failure: QUALIFIERS: Heart failure chronicity: acute on chronic Qualified Code(s): I50.43 - Acute on chronic combined systolic (congestive) and diastolic (congestive) heart failure (2) Acute kidney injury: (3) UTI (urinary tract infection): PLAN: Ucx with small amount klebs, cameron, ecoli. Recent ucx with klebs.MADELEINE improved. Day 6 of abx, will stop ceftriaxone now. Will follow prn
--- NOTE | 2024-10-15 11:32 | PCM.PN.REN ---
Subjective Subjective Patient sitting in chair. Denies any complaints. Reports feeling better overall. Objective Data Objective Data Vital Signs: Vital Signs Temp Pulse Resp BP Pulse Ox O2 Del Method O2 Flow Rate 97.9 F 92 18 138/71 H 97 High Flow 5 10/15/24 10:10 10/15/24 10:16 10/15/24 10:10 10/15/24 10:16 10/15/24 10:10 10/15/24 10:10 10/15/24 10:10 FiO2 45 10/15/24 06:50 Oxygen Flow Rate (L/min) 5 Oxygen Delivery Method High Flow Weight: 71.3 kg Body Mass Index (BMI) 24.6 Intake & Output: Intake and Output for Last 24 Hours 10/14/24 10/14/24 10/15/24 00:59 23:59 23:59 Intake Total 630 / 630 470 / 470 50 / 50 Output Total 2275 / 2275 2350 / 2350 125 / 125 Balance -1645 / -1645 -1880 / -1880 -75 / -75 Lab / Micro Data 10/15/24 05:54 10/15/24 05:54 Labs: Laboratory Results - last 24 hr 10/14/24 16:38: POC Glucose 161 H 10/14/24 21:28: POC Glucose 98 10/15/24 02:07: POC Glucose 97 10/15/24 05:54: WBC 5.4, RBC 3.48 L, Hgb 10.1 L, Hct 30.6 L, MCV 87.9, MCH 29.0, MCHC 33.0, RDW Std Deviation 47.1 H, RDW Coeff of Maia 14.7 H, Plt Count 254, MPV 10.0, Immature Gran % (Auto) 0.600, Neut % (Auto) 72.8 H, Lymph % (Auto) 8.9 L, [place] % (Auto) 14.5 H, Eos % (Auto) 3.0, Baso % (Auto) 0.2, Absolute Neuts (auto) 3.9, Absolute Lymphs (auto) 0.48 L, Nucleated RBC % 0, Sodium 137, Potassium 3.6, Chloride 99, Carbon Dioxide 25.3, Anion Gap 12, BUN 33 H, Creatinine 0.89, Estim Creat Clear Calc 76.33, Est GFR (MDRD) Non-Af 95, BUN/Creatinine Ratio 36.8 H, Glucose 71, Calcium 8.8, Magnesium 1.5 10/15/24 06:04: POC Glucose 77 10/15/24 07:50: POC Glucose 70 L Micro: Microbiology 10/10/24 01:50 Blood Culture (Wb) - Anticubital Right Blood Culture - Final No growth in 5 days. 10/10/24 01:37 Blood Culture (Wb) - Anticubital Left Blood Culture - Final No growth in 5 days. 10/10/24 03:18 Urine Catheter - Robb Urine Culture - Final Klebsiella pneumoniae sp pneum Presumptive C albicans Escherichia coli 10/10/24 03:05 Mucosa - Nasopharyngeal Respiratory Panel (PCR) - Final 10/10/24 03:18 Urine Catheter - Catheter Streptococcus pneumoniae Antigen (M - Final 10/10/24 03:18 Urine Catheter - Robb Legionella Antigen - Final 10/10/24 01:40 Mucosa - Nose SARS-CoV-2, Influenza & RSV (PCR) - Final Rhythm Strip Rhythm Strip: Sinus Rhythm Rate: 76 Ectopy: PAC(s) (Frequent PACs being alarmed his atrial fibs on the rhythm strips.) Physical Exam Narrative Alert awake oriented x 3 no obvious distress s1s2 no murmurs lungs clear abdomen soft no edema Suprapubic Assessment & Plan Assessment/Plan (1) Acute kidney injury: PLAN: - MADELEINE secondary to ATN with normal baseline Creatinine. Baseline creatinine around 0.6-0.7. Creatinine 1.3 on admission, peaked 2.37 on 10/12 and today serum creatinine 0.89. CT abdomen without any hydronephrosis. Urine analysis suggestive of UTI. He did receive a CT PE protocol study. Overall renal function better, good urine output. BPs acceptable.
[2024-10-15 11:46] LABS: Bedside Glucose 179 mg/dL (74-106)
[2024-10-15] MEDS: Insulin Lispro 100 UNIT/ML INSULN.PEN SC ×3 (13:22→23:29)
[2024-10-15] MEDS: Insulin Lispro 100 UNIT/ML INSULN.PEN 10 UNIT SC ×2 (13:22→17:47)
[2024-10-15] MEDS: Nitroglycerin Oint 1 INCH PACKET TD ×3 (13:24→23:28)
[2024-10-15 16:54] LABS: Bedside Glucose 273 mg/dL (74-106)
[2024-10-15] MEDS: Tamsulosin HCl 0.4 MG Capsule 0.8 MG PO (23:26)
[2024-10-15] MEDS: Atorvastatin Calcium 20 MG Tablet PO (23:27)
[2024-10-15] MEDS: MELATONIN 10 MG TABLET PO (23:27)
[2024-10-16] VITALS (12 sets, daily range): BP systolic 124–153; BP diastolic 69–82; PULSE 75–831; RESP 14–18; TEMP 36.1–37; O2SAT 98–100; BMI 24.0
[2024-10-16 00:09] LABS: Bedside Glucose 196 mg/dL (74-106)
[2024-10-16 06:22] LABS: Absolute Lymphocyte Count 0.78 X10^3/uL (0.83-4.51); Absolute Neutrophil Count 4.2 X10^3/uL (2.0-7.7); Basophil# 0.02 X10^3/uL; Basophil% 0.3 % (0-1); Eosinophil# 0.17 X10^3/uL; Eosinophils% 2.8 % (0-5); Hematocrit 30.5 % (40-54); Hemoglobin 10.1 g/dL (13.0-16.5); Lymphocyte # 0.78 X10^3/ul (0.83-4.51); Lymphocyte % 12.9 % (19-41); Mean Corp Hgb Conc 33.1 g/dL (32-36); Mean Corpuscular Hgb 28.9 pg (27.0-32.0); Mean Corpuscular Volume 87.4 fL (80-94); Monocyte# 0.84 X10^3/uL; Monocyte% 13.8 % (0-10); NRBC Flagged by Analyzer 0 % (0-5); Neutrophil # 4.23 X10^3/uL (2.7-7.7); Neutrophil % 69.7 % (47-70); Platelet Count 266 K/mm3 (150-450); RBC Distribution Width CV 14.8 % (11.6-14.6); RBC Distribution Width SD 47.4 fl (35.1-43.9); Red Blood Count 3.49 M/mm3 (4.6-6.2); White Blood Count 6.1 K/mm3 (4.4-11.0)
[2024-10-16 07:19] LABS: Anion Gap 11 (5-15); BUN 24 mg/dL (4-19); BUN/Creat Ratio 26.4 RATIO (10-20); Calcium,Total 8.5 mg/dL (7.6-11.0); Carbon Dioxide 29.3 mmol/L (21.0-32.0); Chloride 97 mmol/L (98-108); Creatinine, Serum 0.91 mg/dL (0.70-1.20); EST Glomerular Filtration Rate 93 (>60); Estimated Creatinine Clearance 74.66 ml/min (50-250); Glucose 151 mg/dL (70-99); Sodium Level 138 mmol/L (133-145)
--- NOTE | 2024-10-16 08:31 | PCM.PN.HOSP ---
Reason for Visit Reason for Visit: Diagnoses Sepsis, unspecified organism (10/10/24) Acidosis, unspecified (10/10/24) Non-ST elevation (NSTEMI) myocardial infarction (10/10/24) Atherosclerotic heart disease of [place] coronary artery without angina pectoris (10/10/24) Unspecified combined systolic (congestive) and diastolic (congestive) heart failure (10/10/24) Acute on chronic combined systolic (congestive) and diastolic (congestive) heart failure (10/10/24) Acute respiratory failure with hypoxia (10/10/24) Acute kidney failure, unspecified (10/10/24) Urinary tract infection, site not specified (10/10/24) Subjective Subjective Patient slowly improving, still short of breath still somewhat weak but sats improving and overall patient continues to slowly improve Objective Data Objective Data Vital Signs: Vital Signs Temp Pulse Resp BP Pulse Ox O2 Del Method O2 Flow Rate 97.0 F L 76 14 138/76 H 98 Bi-pap 5 10/16/24 05:33 10/16/24 05:33 10/16/24 05:33 10/16/24 05:33 10/16/24 05:33 10/16/24 05:37 10/15/24 19:13 FiO2 35 10/16/24 05:05 Oxygen Flow Rate (L/min) 5 Oxygen Delivery Method Bi-pap Weight: 69.7 kg Body Mass Index (BMI) 24.0 Intake & Output: Intake and Output for Last 24 Hours 10/14/24 10/15/24 10/16/24 23:59 23:59 23:59 Intake Total 470 / 470 890 / 890 Output Total 2350 / 2350 2575 / 2575 75 / 75 Balance -1880 / -1880 -1685 / -1685 -75 / -75 Lab / Micro Data 10/16/24 05:00 10/16/24 05:00 Labs: Laboratory Results - last 24 hr 10/15/24 11:28: POC Glucose 179 H 10/15/24 16:31: POC Glucose 273 H 10/15/24 23:19: POC Glucose 196 H 10/16/24 05:00: WBC 6.1, RBC 3.49 L, Hgb 10.1 L, Hct 30.5 L, MCV 87.4, MCH 28.9, MCHC 33.1, RDW Std Deviation 47.4 H, RDW Coeff of Maia 14.8 H, Plt Count 266, MPV 10.0, Immature Gran % (Auto) 0.500, Neut % (Auto) 69.7, Lymph % (Auto) 12.9 L, [place] % (Auto) 13.8 H, Eos % (Auto) 2.8, Baso % (Auto) 0.3, Absolute Neuts (auto) 4.2, Absolute Lymphs (auto) 0.78 L, Nucleated RBC % 0, Sodium 138, Potassium 4.0, Chloride 97 L, Carbon Dioxide 29.3, Anion Gap 11, BUN 24 H, Creatinine 0.91, Estim Creat Clear Calc 74.66, Est GFR (MDRD) Non-Af 93, BUN/Creatinine Ratio 26.4 H, Glucose 151 H, Calcium 8.5 Micro: Microbiology 10/10/24 01:50 Blood Culture (Wb) - Anticubital Right Blood Culture - Final No growth in 5 days. 10/10/24 01:37 Blood Culture (Wb) - Anticubital Left Blood Culture - Final No growth in 5 days. 10/10/24 03:18 Urine Catheter - Robb Urine Culture - Final Klebsiella pneumoniae sp pneum Presumptive C albicans Escherichia coli 10/10/24 03:05 Mucosa - Nasopharyngeal Respiratory Panel (PCR) - Final 10/10/24 03:18 Urine Catheter - Catheter Streptococcus pneumoniae Antigen (M - Final 10/10/24 03:18 Urine Catheter - Robb Legionella Antigen - Final 10/10/24 01:40 Mucosa - Nose SARS-CoV-2, Influenza & RSV (PCR) - Final Rhythm Strip Rhythm Strip: Sinus Rhythm Rate: 76 Ectopy: PAC(s) (Frequent PACs being alarmed his atrial fibs on the rhythm strips.) Physical Exam Narrative General: Resting comfortably but wakes up and answers questions appropriately, no apparent distress HEENT: Atraumatic, normocephalic Eyes: Anicteric, Neck: Supple Respiratory: No respiratory distress, fair air movement Cardiovascular: Regular rate GI: Soft, nontender, nondistended Extremities: No significant pitting edema Musculoskeletal: Moving all extremities Neuro: No overt focal neurological deficits Skin: No rashes appreciated Psych: Cooperative Assessment & Plan Assessment/Plan (1) Combined systolic and diastolic congestive heart failure: QUALIFIERS: Heart failure chronicity: acute on chronic Qualified Code(s): I50.43 - Acute on chronic combined systolic (congestive) and diastolic (congestive) heart failure PLAN: Plan # Elevated troponin -Patient's EKG with diffuse ST segment depressions, echo showed EF of 35% with basilar segmental wall motion abnormalities -Continuing patient on aspirin, Plavix, statin, carvedilol added -Given patient's clinical status and MADELEINE the recommendation is for pharmacologic nuclear stress test once stabilized however discussed today with cardiology and given patient's continued oxygen requirements and acute illness as well as UTI and antibiotics, cardiology recommending that patient may benefit from further workup on outpatient basis once he is optimized. -Reevaluate patient in a.m. -10/15: Patient stable from cardiac standpoint at this time and it was recommended that patient follow-up outpatient in a month to allow time for respiratory status to improve and further evaluation management can be discussed at that time, will transition patient's Nitropaste to Imdur 30 on discharge and plan will be to follow-up with cardiology -10/16: We will change patient to Imdur 30 from Nitropaste per cardiology recommendations, continue beta-tian, outpatient follow-up # MADELEINE-resolved -Baseline renal function with creatinine of 0.6-0.7, on admission creatinine 1.39 and jumped further to 2.11, lisinopril held and Lasix drip discontinued and nephrology consulted, felt that this was multifactorial and began to improve again -Patient resumed on IV Lasix given worsening respiratory status with resumption on 10/13 -Repeat creatinine in a.m., monitor volume status -10/15: Kidney function improved significantly with creatinine 0.83 even with diuresis, will continue IV diuresis today, may be able to consider switching to p.o. tomorrow if respiratory status improving, still on high amounts of oxygen is not yet safe for discharge. Nephrology did evaluate and felt that kidney function decline likely due to ATN especially given he had a CTA prior to this episode -10/16: Creatinine remained stable, patient has been IV diuresed, will likely de-escalate to oral diuresis in preparation for discharge # Chronic suprapubic catheter with abnormal UA and urine culture -Patient on Rocephin, patient grew Klebsiella and E. coli in urine although these were low colony counts -ID following, plan will be short course of p.o. antibiotics on discharge -10/15: Patient improving, plan for short course of oral antibiotics on discharge, patient evaluated by infectious disease -10/16: Rocephin stopped, ID to follow as needed # Acute hypoxic respiratory failure -Patient was 86% on room air and required Airvo -Patient back on IV Lasix as of 10/13, monitor kidney function respiratory status -10/15: Tolerating IV Lasix well, patient wore BiPAP overnight as he does have sleep apnea and wears NIPPV at home, yesterday was on 5 L most of the day, work on weaning down oxygen and once patient able to safely mobilize with an O2 requirement safe for home we will consider discharge -10/16: Yesterday worked with therapy and maintain 91% on 5 L, patient is closer to discharge, it was recommended the patient go to TCU or SNF, will discuss with patient. Given respiratory status is improving and patient is down 3.4 L this hospitalization will transition to oral diuresis and if patient tolerates and respiratory status tolerates can likely be discharged in the next couple of days pending clinical status and if patient decides to go home or to be placed # Acute exacerbation of combined heart failure -Patient's EF here 35% with basilar segmental wall motion abnormalities and stage III diastolic dysfunction -Cardiology following, continue diuretics -Continue to monitor volume status -2+ MR -10/15: Hemodynamics and kidney function tolerating IV Lasix -10/16: Improving, of note echo findings as above, there is an echo from 2023 that was normal #Type 2 diabetes mellitus -Glucose checks and sliding scale insulin -Continue to adjust patient's long-acting and short acting as needed -10/15: Patient's glucose 70 today despite not being n.p.o., will hold scheduled Premeal and decrease long-acting, uptitrate as able/tolerated -10/16: Glucose this a.m. 136 with lunchtime 165, continue present insulin regimen Chronic medical problems: #Hx CAD w/ CABG/history of right CEA/history of stroke/history of PAD -CABG several years ago and heart cath in 2015 which showed all 4 of his grafts were patent -Continue aspirin, Plavix, statin #ALEJANDRO -Continue home NIPPV if applicable #GERD -Continue PPI #Depression/anxiety -Continue home medications #DVT ppx: SCDs Nicloe Smith MD Charges/Coding Visit Charges Inpatient E&M: 85657 Subs Hosp L2
[2024-10-16 08:43] LABS: Bedside Glucose 136 mg/dL (74-106)
[2024-10-16] MEDS: Isosorbide Mononitrate 30 MG Tablet PO (09:38)
[2024-10-16] MEDS: DULoxetine Hcl 30 MG Capsule PO (09:38)
[2024-10-16] MEDS: Clopidogrel Bisulfate 75 MG Tablet PO (09:38)
[2024-10-16] MEDS: Furosemide 40 MG Tablet PO ×2 (09:38→18:19)
[2024-10-16] MEDS: Pantoprazole Sodium 40 MG Tablet PO (09:38)
[2024-10-16] MEDS: hydrALAZINE 10 MG Tablet PO ×4 (09:38→20:18)
[2024-10-16] MEDS: Gabapentin 300 MG Capsule PO (09:38)
[2024-10-16] MEDS: Aspirin 81 MG TAB.CHEW PO (09:39)
[2024-10-16] MEDS: Carvedilol 6.25 MG Tablet PO ×2 (09:39→16:41)
[2024-10-16] MEDS: Insulin Glargine-YFGN 100 UNIT/ML Pen 40 UNIT SC ×2 (09:43→20:20)
[2024-10-16] MEDS: Insulin Lispro 100 UNIT/ML INSULN.PEN 10 UNIT SC ×2 (12:47→16:42)
[2024-10-16] MEDS: Insulin Lispro 100 UNIT/ML INSULN.PEN SC ×2 (12:47→16:41)
[2024-10-16 13:07] LABS: Bedside Glucose 165 mg/dL (74-106)
[2024-10-16 17:07] LABS: Bedside Glucose 204 mg/dL (74-106)
[2024-10-16] MEDS: MELATONIN 10 MG TABLET PO (20:19)
[2024-10-16] MEDS: Tamsulosin HCl 0.4 MG Capsule 0.8 MG PO (20:19)
[2024-10-16] MEDS: Atorvastatin Calcium 20 MG Tablet PO (20:19)
[2024-10-16 20:51] LABS: Bedside Glucose 149 mg/dL (74-106)
[2024-10-17] VITALS (15 sets, daily range): BP systolic 130–153; BP diastolic 67–80; PULSE 77–85; RESP 14–20; TEMP 36.6–37.2; O2SAT 91–99; BMI 23.5
[2024-10-17] MEDS: Acetaminophen 325 MG Tablet 650 MG PO (02:30)
[2024-10-17 05:19] LABS: Absolute Lymphocyte Count 0.54 X10^3/uL (0.83-4.51); Absolute Neutrophil Count 5.3 X10^3/uL (2.0-7.7); Basophil# 0.01 X10^3/uL; Basophil% 0.2 % (0-1); Eosinophil# 0.14 X10^3/uL; Eosinophils% 2.1 % (0-5); Hematocrit 32.4 % (40-54); Hemoglobin 10.5 g/dL (13.0-16.5); Lymphocyte # 0.54 X10^3/ul (0.83-4.51); Lymphocyte % 8.1 % (19-41); Mean Corp Hgb Conc 32.4 g/dL (32-36); Mean Corpuscular Hgb 28.8 pg (27.0-32.0); Mean Corpuscular Volume 88.8 fL (80-94); Monocyte# 0.64 X10^3/uL; Monocyte% 9.6 % (0-10); NRBC Flagged by Analyzer 0 % (0-5); Neutrophil # 5.29 X10^3/uL (2.7-7.7); Neutrophil % 79.4 % (47-70); POSITIVE DIFFERENTIAL YES; Platelet Count 309 K/mm3 (150-450); RBC Distribution Width CV 14.6 % (11.6-14.6); RBC Distribution Width SD 47.1 fl (35.1-43.9); Red Blood Count 3.65 M/mm3 (4.6-6.2); White Blood Count 6.7 K/mm3 (4.4-11.0)
[2024-10-17 06:00] LABS: Anion Gap 13 (5-15); BUN 18 mg/dL (4-19); BUN/Creat Ratio 21.6 RATIO (10-20); Calcium,Total 8.9 mg/dL (7.6-11.0); Carbon Dioxide 27.8 mmol/L (21.0-32.0); Chloride 96 mmol/L (98-108); Creatinine, Serum 0.85 mg/dL (0.70-1.20); EST Glomerular Filtration Rate 96 (>60); Estimated Creatinine Clearance 79.92 ml/min (50-250); Glucose 174 mg/dL (70-99); Potassium 4.1 mmol/L (3.3-5.1); Sodium Level 137 mmol/L (133-145)
[2024-10-17] MEDS: Pantoprazole Sodium 40 MG Tablet PO (08:12)
[2024-10-17] MEDS: Furosemide 40 MG Tablet PO ×2 (08:12→16:27)
[2024-10-17] MEDS: Clopidogrel Bisulfate 75 MG Tablet PO (08:12)
[2024-10-17] MEDS: Aspirin 81 MG TAB.CHEW PO (08:12)
[2024-10-17] MEDS: Isosorbide Mononitrate 30 MG Tablet PO (08:12)
[2024-10-17] MEDS: Carvedilol 6.25 MG Tablet PO ×2 (08:12→16:27)
[2024-10-17] MEDS: hydrALAZINE 10 MG Tablet PO ×4 (08:12→20:51)
[2024-10-17] MEDS: Gabapentin 300 MG Capsule PO (08:12)
[2024-10-17] MEDS: DULoxetine Hcl 30 MG Capsule PO (08:12)
[2024-10-17] MEDS: Insulin Glargine-YFGN 100 UNIT/ML Pen 40 UNIT SC ×2 (08:40→20:49)
[2024-10-17] MEDS: Insulin Lispro 100 UNIT/ML INSULN.PEN 10 UNIT SC ×3 (08:40→17:05)
[2024-10-17 08:59] LABS: Bedside Glucose 137 mg/dL (74-106)
--- NOTE | 2024-10-17 12:03 | CASEMGMT ---
Discharge Planning Per Sathish pt is active with [facility]. Patsy Riley DC Planning Asst.
[2024-10-17] MEDS: Insulin Lispro 100 UNIT/ML INSULN.PEN SC ×3 (12:07→20:49)
[2024-10-17 12:53] LABS: Bedside Glucose 191 mg/dL (74-106)
[2024-10-17 16:46] LABS: Bedside Glucose 158 mg/dL (74-106)
--- NOTE | 2024-10-17 17:10 | PN.HOSP_ITS ---
Reason for Visit Reason for Visit: Diagnoses Sepsis, unspecified organism (10/10/24) Acidosis, unspecified (10/10/24) Non-ST elevation (NSTEMI) myocardial infarction (10/10/24) Atherosclerotic heart disease of [place] coronary artery without angina pectoris (10/10/24) Unspecified combined systolic (congestive) and diastolic (congestive) heart failure (10/10/24) Acute on chronic combined systolic (congestive) and diastolic (congestive) heart failure (10/10/24) Acute respiratory failure with hypoxia (10/10/24) Acute kidney failure, unspecified (10/10/24) Urinary tract infection, site not specified (10/10/24) Subjective Subjective Patient continues to improve, breathing improving so he is able to get up and improve his ambulation and activity level Objective Data Objective Data Vital Signs: Vital Signs Temp Pulse Resp BP Pulse Ox O2 Del Method O2 Flow Rate 97.8 F 85 18 130/71 H 94 Room Air 5 10/17/24 16:25 10/17/24 16:27 10/17/24 16:25 10/17/24 16:25 10/17/24 16:25 10/17/24 16:25 10/17/24 07:37 FiO2 35 10/17/24 00:05 Oxygen Flow Rate (L/min) 5 Oxygen Delivery Method Room Air Weight: 68.2 kg Body Mass Index (BMI) 23.5 Intake & Output: Intake and Output for Last 24 Hours 10/15/24 10/16/24 10/17/24 23:59 23:59 23:59 Intake Total 890 / 890 1070 / 1070 Output Total 2575 / 2575 1385 / 1985 1900 / 1900 Balance -1685 / -1685 -315 / -915 -1900 / -1900 Lab / Micro Data 10/17/24 04:05 10/17/24 04:05 Labs: Laboratory Results - last 24 hr 10/16/24 20:15: POC Glucose 149 H 10/17/24 04:05: WBC 6.7, RBC 3.65 L, Hgb 10.5 L, Hct 32.4 L, MCV 88.8, MCH 28.8, MCHC 32.4, RDW Std Deviation 47.1 H, RDW Coeff of Maia 14.6, Plt Count 309, MPV 10.0, Immature Gran % (Auto) 0.600, Neut % (Auto) 79.4 H, Lymph % (Auto) 8.1 L, [place] % (Auto) 9.6, Eos % (Auto) 2.1, Baso % (Auto) 0.2, Absolute Neuts (auto) 5.3, Absolute Lymphs (auto) 0.54 L, Nucleated RBC % 0, Sodium 137, Potassium 4.1, Chloride 96 L, Carbon Dioxide 27.8, Anion Gap 13, BUN 18, Creatinine 0.85, Estim Creat Clear Calc 79.92, Est GFR (MDRD) Non-Af 96, BUN/Creatinine Ratio 21.6 H, Glucose 174 H, Calcium 8.9 10/17/24 07:53: POC Glucose 137 H 10/17/24 12:05: POC Glucose 191 H 10/17/24 16:22: POC Glucose 158 H Micro: Microbiology 10/10/24 01:50 Blood Culture (Wb) - Anticubital Right Blood Culture - Final No growth in 5 days. 10/10/24 01:37 Blood Culture (Wb) - Anticubital Left Blood Culture - Final No growth in 5 days. 10/10/24 03:18 Urine Catheter - Robb Urine Culture - Final Klebsiella pneumoniae sp pneum Presumptive C albicans Escherichia coli 10/10/24 03:05 Mucosa - Nasopharyngeal Respiratory Panel (PCR) - Final 10/10/24 03:18 Urine Catheter - Catheter Streptococcus pneumoniae Antigen (M - Final 10/10/24 03:18 Urine Catheter - Robb Legionella Antigen - Final 10/10/24 01:40 Mucosa - Nose SARS-CoV-2, Influenza & RSV (PCR) - Final Rhythm Strip Rhythm Strip: Sinus Rhythm Rate: 76 Ectopy: PAC(s) (Frequent PACs being alarmed his atrial fibs on the rhythm strips.) Physical Exam Narrative General: Resting in bed, answers questions appropriately HEENT: Atraumatic, normocephalic Eyes: Anicteric, Neck: Supple Respiratory: No respiratory distress, air movement improved from previous Cardiovascular: Regular rate GI: Soft, nontender, nondistended Extremities: No significant pitting edema Musculoskeletal: Moving all extremities Neuro: No overt focal neurological deficits Skin: No rashes appreciated Psych: Cooperative Assessment & Plan Assessment/Plan (1) Combined systolic and diastolic congestive heart failure: QUALIFIERS: Heart failure chronicity: acute on chronic Qualified Code(s): I50.43 - Acute on chronic combined systolic (congestive) and diastolic (congestive) heart failure PLAN: Plan # Acute hypoxic respiratory failure -Patient was 86% on room air and required Airvo -Patient back on IV Lasix as of 10/13, monitor kidney function respiratory status -10/15: Tolerating IV Lasix well, patient wore BiPAP overnight as he does have sleep apnea and wears NIPPV at home, yesterday was on 5 L most of the day, work on weaning down oxygen and once patient able to safely mobilize with an O2 requirement safe for home we will consider discharge -10/16: Yesterday worked with therapy and maintain 91% on 5 L, patient is closer to discharge, it was recommended the patient go to TCU or SNF, will discuss with patient. Given respiratory status is improving and patient is down 3.4 L this hospitalization will transition to oral diuresis and if patient tolerates and respiratory status tolerates can likely be discharged in the next couple of days pending clinical status and if patient decides to go home or to be placed -10/17: Patient weaned to room air, is doing better from respiratory standpoint and is getting stronger, continuing patient's twice daily Lasix, and he has been started on Imdur, discussed with patient and , if patient's respiratory status continues to improve and he is able to improve his activity tomorrow to what would be acceptable for safe discharge home, he and would be amenable to discharge home # Acute exacerbation of combined heart failure -Patient's EF here 35% with basilar segmental wall motion abnormalities and stage III diastolic dysfunction -Cardiology following, continue diuretics -Continue to monitor volume status -2+ MR -10/15: Hemodynamics and kidney function tolerating IV Lasix -10/16: Improving, of note echo findings as above, there is an echo from 2023 that was normal -10/17: Thus far respiratory status and renal function tolerating the 40 of Lasix twice daily, repeat in the a.m., if respiratory status and kidney status stable and patient able to ambulate well enough for safe discharge home will likely DC tomorrow Chronic medical problems/problems that have already been addressed: # Elevated troponin -Patient's EKG with diffuse ST segment depressions, echo showed EF of 35% with basilar segmental wall motion abnormalities -Continuing patient on aspirin, Plavix, statin, carvedilol added -Given patient's clinical status and MADELEINE the recommendation is for pharmacologic nuclear stress test once stabilized however discussed today with cardiology and given patient's continued oxygen requirements and acute illness as well as UTI and antibiotics, cardiology recommending that patient may benefit from further workup on outpatient basis once he is optimized. -Reevaluate patient in a.m. -10/15: Patient stable from cardiac standpoint at this time and it was recommended that patient follow-up outpatient in a month to allow time for respiratory status to improve and further evaluation management can be discussed at that time, will transition patient's Nitropaste to Imdur 30 on discharge and plan will be to follow-up with cardiology -10/16: We will change patient to Imdur 30 from Nitropaste per cardiology recommendations, continue beta-tian, outpatient follow-up # MADELEINE-resolved -Baseline renal function with creatinine of 0.6-0.7, on admission creatinine 1.39 and jumped further to 2.11, lisinopril held and Lasix drip discontinued and nephrology consulted, felt that this was multifactorial and began to improve again -Patient resumed on IV Lasix given worsening respiratory status with resumption on 10/13 -Repeat creatinine in a.m., monitor volume status -10/15: Kidney function improved significantly with creatinine 0.83 even with diuresis, will continue IV diuresis today, may be able to consider switching to p.o. tomorrow if respiratory status improving, still on high amounts of oxygen is not yet safe for discharge. Nephrology did evaluate and felt that kidney function decline likely due to ATN especially given he had a CTA prior to this episode -10/16: Creatinine remained stable, patient has been IV diuresed, will likely de- escalate to oral diuresis in preparation for discharge # Chronic suprapubic catheter with abnormal UA and urine culture -Patient on Rocephin, patient grew Klebsiella and E. coli in urine although these were low colony counts -ID following, plan will be short course of p.o. antibiotics on discharge -10/15: Patient improving, plan for short course of oral antibiotics on discharge, patient evaluated by infectious disease -10/16: Rocephin stopped, ID to follow as needed #Type 2 diabetes mellitus -Glucose checks and sliding scale insulin -Continue to adjust patient's long-acting and short acting as needed -10/15: Patient's glucose 70 today despite not being n.p.o., will hold scheduled Premeal and decrease long-acting, uptitrate as able/tolerated -10/16: Glucose this a.m. 136 with lunchtime 165, continue present insulin regimen #Hx CAD w/ CABG/history of right CEA/history of stroke/history of PAD -CABG several years ago and heart cath in 2015 which showed all 4 of his grafts were patent -Continue aspirin, Plavix, statin #ALEJANDRO -Continue home NIPPV if applicable #GERD -Continue PPI #Depression/anxiety -Continue home medications #DVT ppx: SCDs Nicole Smith MD Time spent in the patient's overall evaluation,decision-making process, review of diagnostic data, adjustment of management, discussion with other providers, nursing nursing and ancillary staff involved in patient's care documentation, 36 Minutes Charges/Coding Visit Charges Inpatient E&M: 82414 Subs Hosp L2
--- NOTE | 2024-10-17 18:45 | CASEMGMT ---
RASHI ARVIZU NOTE: RN CM to room. Pt sitting up in chair in room, on RA. Discussed discharge planning and pt confirms he feels safe discharging back home and [facility] Discussed home o2 amb testing and possible need of home o2. He states, if that is needed, he would like to use [employer], as he has used them in the past. He states his son found his pulse ox @ home so he will have that available to monitor his O2 levels @ home. He denies further dc needs at this time. Joaquín CRUZN RASHI CM
[2024-10-17] MEDS: Atorvastatin Calcium 20 MG Tablet PO (20:51)
[2024-10-17] MEDS: Tamsulosin HCl 0.4 MG Capsule 0.8 MG PO (20:52)
[2024-10-17] MEDS: MELATONIN 10 MG TABLET PO (20:52)
[2024-10-17 22:01] LABS: Bedside Glucose 231 mg/dL (74-106)
[2024-10-18 02:36] VITALS: PULSE 79; RESP 14; RESP 16; O2SAT 95
[2024-10-18 04:37] VITALS: BP 135/76; PULSE 86; RESP 20; TEMP 36.9; O2SAT 99
[2024-10-18 07:35] LABS: Absolute Lymphocyte Count 0.78 X10^3/uL (0.83-4.51); Absolute Neutrophil Count 5.8 X10^3/uL (2.0-7.7); Basophil# 0.01 X10^3/uL; Basophil% 0.1 % (0-1); Eosinophil# 0.17 X10^3/uL; Eosinophils% 2.2 % (0-5); Hematocrit 30.5 % (40-54); Hemoglobin 9.9 g/dL (13.0-16.5); Lymphocyte # 0.78 X10^3/ul (0.83-4.51); Lymphocyte % 10.3 % (19-41); Mean Corp Hgb Conc 32.5 g/dL (32-36); Mean Corpuscular Hgb 28.5 pg (27.0-32.0); Mean Corpuscular Volume 87.9 fL (80-94); Mean Platelet Vol. 9.9 fl (6.2-12.0); Monocyte# 0.83 X10^3/uL; Monocyte% 10.9 % (0-10); NRBC Flagged by Analyzer 0 % (0-5); Neutrophil # 5.77 X10^3/uL (2.7-7.7); Neutrophil % 76.1 % (47-70); Platelet Count 293 K/mm3 (150-450); RBC Distribution Width CV 14.6 % (11.6-14.6); RBC Distribution Width SD 47.2 fl (35.1-43.9); Red Blood Count 3.47 M/mm3 (4.6-6.2); White Blood Count 7.6 K/mm3 (4.4-11.0)
[2024-10-18 08:10] VITALS: BP 129/70; PULSE 81; RESP 18; TEMP 36.6; O2SAT 96
[2024-10-18 08:12] VITALS: PULSE 81
[2024-10-18] MEDS: hydrALAZINE 10 MG Tablet PO ×2 (08:12→14:04)
[2024-10-18] MEDS: Isosorbide Mononitrate 30 MG Tablet PO (08:12)
[2024-10-18] MEDS: Gabapentin 300 MG Capsule PO (08:12)
[2024-10-18] MEDS: Carvedilol 6.25 MG Tablet PO (08:13)
[2024-10-18] MEDS: DULoxetine Hcl 30 MG Capsule PO (08:13)
[2024-10-18] MEDS: Clopidogrel Bisulfate 75 MG Tablet PO (08:13)
[2024-10-18] MEDS: Aspirin 81 MG TAB.CHEW PO (08:13)
[2024-10-18] MEDS: Furosemide 40 MG Tablet PO (08:13)
[2024-10-18] MEDS: Pantoprazole Sodium 40 MG Tablet PO (08:13)
[2024-10-18 08:32] LABS: Anion Gap 13 (5-15); BUN 14 mg/dL (4-19); BUN/Creat Ratio 17.1 RATIO (10-20); Calcium,Total 9.1 mg/dL (7.6-11.0); Chloride 98 mmol/L (98-108); Creatinine, Serum 0.81 mg/dL (0.70-1.20); EST Glomerular Filtration Rate 97 (>60); Estimated Creatinine Clearance 83.87 ml/min (50-250); Glucose 153 mg/dL (70-99); Potassium 4.3 mmol/L (3.3-5.1); Sodium Level 136 mmol/L (133-145)
--- NOTE | 2024-10-18 08:42 | WOUNDNOTE ---
In to see patient. ostomy appliance remains in place. pt denies needs with ostomy at this time. pt did not want this nurse to change the dry dressing over the old stoma site. states he only has a small amount of mucous at times. pt hoping to go home today.
[2024-10-18] MEDS: Insulin Lispro 100 UNIT/ML INSULN.PEN 10 UNIT SC ×2 (08:52→12:57)
[2024-10-18] MEDS: Insulin Glargine-YFGN 100 UNIT/ML Pen 40 UNIT SC (08:53)
[2024-10-18 08:58] LABS: Bedside Glucose 134 mg/dL (74-106)
[2024-10-18 11:37] LABS: Bedside Glucose 193 mg/dL (74-106)
--- NOTE | 2024-10-18 12:41 | PCM.DC ---
Discharge Instructions Diet Discharge Diet: - (DASH diet) DC O2, CPAP, BIPAP needs Home O2 Discharge instructions: No Dressing / Incision Discharge Activity: - (Increase activity as tolerated) Follow Up Care Test Results: Test results from this visit will be discussed in further detail at your follow-up appointment, if applicable. Discharge Plan Admission Admit Date/Time: 10/10/24 04:04 Primary Reason for Your Visit: Confusion and shortness of breath Attending Provider: Nicole Smith Primary Care Provider: Kendy Modi Consulting Providers: Kendra Yuan; Prateek Smith; Chris Collins; Cy Arnett; Armando Ritchie; Matt Penny Instructions Patient Instructions: ED Heart Failure, Congestive (CHF) Additional Instructions / Restrictions: DISCHARGE INSTRUCTIONS PLEASE READ *Please take this with you to your next doctors appointment* - You will have multiple medication changes to optimize your medications for your heart -You will be discharged on 40 mg of Lasix, you will take 40 mg in the morning and 40 mg in the afternoon, he will also be discharged on hydralazine 4 times daily, and isosorbide mononitrate 30 mg daily -Your amlodipine has been stopped to allow room to adjust other medications, you will not take this on discharge, given your potassium levels being stable during your admission your potassium chloride has also been held -Would recommend lab work (BMP) to check your potassium and kidney function in 3-4 days through your primary care physician's office. Please call their office upon discharge to obtain order for lab work. They may need further adjustments to your medications based on these labs -Would monitor your glucose closely in the event your insulin needs increased or decreased once you are out of the hospital -Please follow-up with cardiology upon discharge. Please call their office to schedule an appointment for 4 to 6 weeks, you will discuss further management and if necessary further workup on an outpatient basis -Weigh yourself every day. A sudden weight gain can mean you are retaining fluid. Weigh yourself at the same time of day and in the same kind of clothes. Ideally, weigh yourself first thing in the morning after you empty your bladder, but before you eat breakfast. -Please call your physician if your weight goes up by more than 2 pounds in 1 day or 5 pounds in 1 week. This can be a sign that you are retaining more fluid than you should be. Clues to weight gain include checking your ankles for swelling, or noticing you are short of breath when you lie down -Please limit your sodium intake to less than 3 g/day. Here are tips: Limit canned, dried, packaged, and fast foods. Don't add salt to your food at the table. Season foods with herbs instead of salt when you cook. When you eat out, ask that the public health worker not add any salt to your dish. Don't eat fried or greasy foods. Be careful of bottled beverages. They can contain a lot of salt -Call 911 right away if you have: -Severe shortness of breath, such that you can't catch your breath even while resting -Severe chest pain that does not resolve with rest or nitroglycerin -[place], foamy mucus with cough and shortness of breath -An ongoing rapid or irregular heartbeat -Passing out or fainting -Stroke symptoms such as sudden numbness or weakness on one side of your face, arm, or leg or sudden confusion, trouble speaking or vision changes -Please follow-up with urology upon discharge for continued management of your Robb catheter. -Please call your primary care provider's office upon discharge to schedule a hospital follow up within 1 week. -For any concerning signs or symptoms please call 911 or proceed to the nearest emergency department Discharge Orders/Prescriptions Prescriptions: New furosemide 40 mg Tablet 40 mg PO BIDLX 30 Days Qty: 60 0RF hydralazine 10 mg Tablet 10 mg PO 4X/DAY 30 Days Qty: 120 0RF isosorbide mononitrate 30 mg Tablet Extended Release 24 Hr 30 mg PO DAILY 30 Days Qty: 30 0RF Continued insulin glargine-yfgn [Semglee(insulin glarg-yfgn)Pen] 100 unit/mL (3 mL) insulin pen 50 unit subcut BID atorvastatin 20 mg tablet 20 mg PO QDAY aspirin 81 MG tablet,chewable 81 mg PO DAILY insulin lispro [Humalog KwikPen Insulin] 100 unit/mL insulin pen 1 sliding scale dose SC TIDCM Protocol: 6. Sliding Scale Insulin Custom Condition: mg/dl range Dose/Route: Number of Units Condition: 0-200 Dose/Route: 0 Condition: 201-250 Dose/Route: 2 Condition: 251-300 Dose/Route: 4 Condition: 301-350 Dose/Route: 6 Condition: 351-400 Dose/Route: 8 Condition: 401-450 Dose/Route: 10 Condition: 451-500 Dose/Route: 12 Condition: 500+ Dose/Route: 14 Condition: 501+ Dose/Route: CALL Protocol Text: INJECT 4 UNITS SUBCUTANEOUSLY ALONG WITH SLIDING SCALE THREE TIMES A DAY AT 0730, 1130, AND 1630 duloxetine 60 MG capsule,delayed release(DR/EC) 30 mg PO DAILY Qty: 30 1RF melatonin 3 mg tablet 3 mg PO QHS simethicone 125 mg tablet,chewable 125 mg PO 4X/DAY PRN (Reason: abdominal distention) tamsulosin [Flomax] 0.4 mg capsule 0.8 mg PO QHS Tums 300 mg (750 mg) tablet,chewable 300 mg PO TID PRN (Reason: dyspepsia) [place] Saline 0.65 % aerosol,spray 2 spray intranasal Q4H PRN (Reason: dry nasal passages) Rx Instructions: while awake carvedilol 6.25 mg Tablet 6.25 mg PO BID Qty: 0 0RF metformin 500 mg tablet extended release 24 hr 500 mg PO BID gabapentin 300 mg capsule 300 mg PO DAILY pantoprazole 40 mg tablet,delayed release (DR/EC) 40 mg PO DAILY acetaminophen 325 mg capsule 650 mg PO Q6H PRN (Reason: pain) clopidogrel 75 mg tablet 75 mg PO DAILY Qty: 90 3RF Discontinued amlodipine 10 mg tablet 10 mg PO DAILY potassium chloride [Klor-Con M20] 20 mEq tablet,ER particles/crystals 20 meq PO DAILY sodium chloride 0.9 % Parenteral Solution 100 ea IV .continuous Referrals / Follow Up: Kendy Modi MD [Primary Care Provider] - Within 1 Week Armando Ritchie MD [Med Staff - Active Staff] - (Continue to follow with urology on discharge for management of your catheter) Etienne Darden MD [Med Staff - Active Staff] - See Referral Note (Follow-up in the cardiology office in 4 to 6 weeks) Disposition Disposition (needs filled in before D/C Order can be placed): Home Health Service
[2024-10-18 12:42] VITALS: O2SAT 93; O2SAT 96
--- NOTE | 2024-10-18 12:47 | DS.PCM_ITS ---
Providers Date of Admission: 10/10/24 Date of Discharge: 10/18/24 Primary Care Physician: Dr. Kendy Modi MD Consultations 10/10/24 05:23 Consult: Cardiology Routine Consulting Provider: Prateek Smith Reason for Consult: NSTEMI EMERGENT Consult: No MD Notified: Yes Date Notified: 10/10/24 Time Notified: 04:07 Method of Notification: ED Physician Initiated Consult: Screen Room Operator / Pulmonary Medicine Routine Consulting Provider: Intensivists/Pulmonary Med Reason for Consult: Resp Failure, HF Exac, Sepsis, UTI, NSTEMI, ? PNA EMERGENT Consult: No MD Notified: Yes Date Notified: 10/10/24 Time Notified: 04:07 Method of Notification: Text Consult: Urology Routine Consulting Provider: Armando Ritchie Reason for Consult: Chronic urinary retention, complicated UTI, needs catheter change. EMERGENT Consult: No MD Notified: Yes Date Notified: 10/10/24 Time Notified: 04:46 Method of Notification: Answering Service 10/11/24 08:48 Consult: Infectious Disease Routine Consulting Provider: Chris Collins Reason for Consult: CAUTI, history of fast no bacteria, E. coli/Klebsiella in past EMERGENT Consult: No MD Notified: Yes Date Notified: 10/11/24 Time Notified: 08:48 Method of Notification: Text Consult: Nephrology Routine Consulting Provider: Cy Arnett Reason for Consult: MADELEINE, HF exa, on lasix drip, held for now, sepsis? EMERGENT Consult: No Notified: Yes Date Notified: 10/11/24 Time Notified: 08:49 Method of Notification: Text 10/15/24 02:37 Consult: Onc/Wound/stucco worker Routine Comment: Reason for Consult:: colostomy/urostomy Comments:: purulent drainage at urostomy site Reason For Visit: RESP FAILURE, HF EXAC, SEPSIS, UTI, MADELEINE, ? PNA, Diagnosis Discharge Diagnosis (1) Combined systolic and diastolic congestive heart failure: Status: Acute Code(s): I50.40 - Unspecified combined systolic (congestive) and diastolic (congestive) heart failure Qualifiers: Heart failure chronicity: acute on chronic Qualified Code(s): I50.43 - Acute on chronic combined systolic (congestive) and diastolic (congestive) heart failure Plan # Acute hypoxic respiratory failure secondary to acute exacerbation of combined CHF # Elevated troponin # MADELEINE-resolved # Chronic suprapubic catheter with abnormal UA and urine culture but only low colony counts, off abx #Type 2 diabetes mellitus #Hx CAD w/ CABG #history of right CEA #history of stroke #history of PAD #ALEJANDRO #GERD #Depression/anxiety # History of colorectal cancer status post resection with colostomy Medications at Discharge Home Medications aspirin 81 mg chewable tablet 81 mg PO DAILY heart health 03/20/16 insulin lispro 100 unit/mL subcutaneous pen (Humalog KwikPen (U-100) Insulin) 1 sliding scale dose subcut TIDCM diabetes 09/26/21 duloxetine 60 mg capsule,delayed release 30 mg (1/2 x 60 mg) PO DAILY depression #30 caps 03/12/23 clopidogrel 75 mg tablet 75 mg PO DAILY blood thinner #90 tabs 10/10/23 pantoprazole 40 mg tablet,delayed release 40 mg PO DAILY GERD 12/01/23 calcium carbonate (Tums) 300 mg PO TID PRN dyspepsia 01/31/24 melatonin 3 mg tablet 3 mg PO QHS 01/31/24 simethicone 125 mg chewable tablet 125 mg PO 4X/DAY PRN abdominal distention 01/31/24 sodium chloride 0.65 % nasal spray aerosol ([place] Saline) 2 spray intranasal Q4H PRN dry nasal passages 01/31/24 tamsulosin 0.4 mg capsule (Flomax) 0.8 mg PO QHS 01/31/24 carvedilol 6.25 mg tablet 6.25 mg PO BID #0 tabs 02/09/24 acetaminophen 325 mg capsule 650 mg PO Q6H PRN pain 05/21/24 atorvastatin 20 mg tablet 20 mg PO QDAY 05/21/24 insulin glargine-yfgn 100 unit/mL (3 mL) subcutaneous pen (Semglee (insulin glargine-yfgn) Pen) 50 unit subcut BID 05/21/24 gabapentin 300 mg capsule 300 mg PO DAILY 08/25/24 metformin 500 mg tablet,extended release 24 hr 500 mg PO BID 08/25/24 furosemide 40 mg tablet 40 mg PO BIDLX 30 days #60 tabs 10/18/24 hydralazine 10 mg tablet 10 mg PO 4X/DAY 30 days #120 tabs 10/18/24 isosorbide mononitrate 30 mg tablet,extended release 24 hr 30 mg PO DAILY 30 days #30 tabs 10/18/24 Hospital Course Procedures Transthoracic echo Summary of Care Provided Minutes Spent on Discharge: 36 Hospital Course: # Acute hypoxic respiratory failure secondary to acute exacerbation of combined CHF # Elevated troponin # MADELEINE-resolved # Chronic suprapubic catheter with abnormal UA and urine culture but only low colony counts, off abx #Type 2 diabetes mellitus #Hx CAD w/ CABG #history of right CEA #history of stroke #history of PAD #ALEJANDRO #GERD #Depression/anxiety # History of colorectal cancer status post resection with colostomy 68-year-old male with history as above presented [facility] ED 10/10/2024 due to confusion and dyspnea. In the ED patient found to be hypoxic at 86% on room air with improvement to 92% on 3 L but this subsequently worsened and patient required 7 L of high flow and then was transitioned to Airvo troponin 404, proBNP 2900, MADELEINE with creatinine 1.39 up from 0.7 baseline, lactic acid 4.4 and chest x-ray suspicious for pulmonary edema. Given some nausea and vomiting CT abdomen pelvis with IV contrast obtained with no evidence of acute process, CTA chest with no PE but findings consistent with pulmonary edema/CHF. UA suspicious for UTI, EKG with some ST depressions. Patient started on antibiotics, placed on BiPAP and admitted to ICU, cardiology consulted. Patient was suspected to have NSTEMI and it was unclear if this was a primary process or troponin elevation secondary to acute decompensated heart failure. 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 Cardiology at the time recommended to continue heparin, aspirin, Plavix, beta-tian and that patient may require cardiac cath prior to DC home but given there was concern for sepsis secondary to UTI and he was volume overloaded this was initially deferred while patient was on IV Lasix and cultures pending. ID was consulted and ultimately blood cultures no growth and urine culture with low colony counts so antibiotics were discontinued. Patient continued to have worsened kidney function so nephrology consulted, it was felt that this was due to IV diuresis in the setting of CTA resulting in ATN, creatinine stabilized and then improved even with further IV diuresis. Cardiology continue to follow and recommendations changed possible nuclear stress once stabilized but given patient's continued oxygen requirements/acute illness cardiology recommended that patient would be better served being optimized medically and following up outpatient for further workup and it was advised that patient be transition to Imdur and oral Lasix. Ultimately patient was weaned off of Airvo and Lasix were able to be de-escalated to p.o. and Nitropaste was changed to Imdur, patient tolerated this well with continued improvement in respiratory status and no need for O2 even with ambulation, chest pain did not return. On day of discharge no new or acute complaints, patient and are both comfortable with patient discharging home. Discharge instructions as followed: DISCHARGE INSTRUCTIONS PLEASE READ *Please take this with you to your next doctors appointment* - You will have multiple medication changes to optimize your medications for your heart -You will be discharged on 40 mg of Lasix, you will take 40 mg in the morning and 40 mg in the afternoon, he will also be discharged on hydralazine 4 times daily, and isosorbide mononitrate 30 mg daily -Your amlodipine has been stopped to allow room to adjust other medications, you will not take this on discharge, given your potassium levels being stable during your admission your potassium chloride has also been held -Would recommend lab work (BMP) to check your potassium and kidney function in 3-4 days through your primary care physician's office. Please call their office upon discharge to obtain order for lab work. They may need further adjustments to your medications based on these labs -Would monitor your glucose closely in the event your insulin needs increased or decreased once you are out of the hospital -Please follow-up with cardiology upon discharge. Please call their office to schedule an appointment for 4 to 6 weeks, you will discuss further management and if necessary further workup on an outpatient basis -Weigh yourself every day. A sudden weight gain can mean you are retaining fluid. Weigh yourself at the same time of day and in the same kind of clothes. Ideally, weigh yourself first thing in the morning after you empty your bladder, but before you eat breakfast. -Please call your physician if your weight goes up by more than 2 pounds in 1 day or 5 pounds in 1 week. This can be a sign that you are retaining more fluid than you should be. Clues to weight gain include checking your ankles for swelling, or noticing you are short of breath when you lie down -Please limit your sodium intake to less than 3 g/day. Here are tips: Limit canned, dried, packaged, and fast foods. Don't add salt to your food at the table. Season foods with herbs instead of salt when you cook. When you eat out, ask that the chainstitch seat joiner not add any salt to your dish. Don't eat fried or greasy foods. Be careful of bottled beverages. They can contain a lot of salt -Call 911 right away if you have: -Severe shortness of breath, such that you can't catch your breath even while resting -Severe chest pain that does not resolve with rest or nitroglycerin -Hoehne, foamy mucus with cough and shortness of breath -An ongoing rapid or irregular heartbeat -Passing out or fainting -Stroke symptoms such as sudden numbness or weakness on one side of your face, arm, or leg or sudden confusion, trouble speaking or vision changes -Please follow-up with urology upon discharge for continued management of your Robb catheter. -Please call your primary care provider's office upon discharge to schedule a hospital follow up within 1 week. -For any concerning signs or symptoms please call 911 or proceed to the nearest emergency department Physical Exam Narrative General: Sitting up in chair, doing well HEENT: Atraumatic, normocephalic Eyes: Anicteric, Neck: Supple Respiratory: No respiratory distress, good air movement overall Cardiovascular: Regular rate GI: Soft, nontender, nondistended Extremities: No significant pitting edema Musculoskeletal: Moving all extremities Neuro: No overt focal neurological deficits Skin: No rashes appreciated Psych: Cooperative Weight / BMI Weight Weight: 68.2 kg Body Mass Index (BMI) 23.5 ABG / Lab / Microbiology Data 10/18/24 06:16 10/18/24 06:16 Laboratory: Laboratory Results - last 24 hr 10/17/24 16:22: POC Glucose 158 H 10/17/24 20:47: POC Glucose 231 H 10/18/24 06:16: WBC 7.6, RBC 3.47 L, Hgb 9.9 L, Hct 30.5 L, MCV 87.9, MCH 28.5, MCHC 32.5, RDW Std Deviation 47.2 H, RDW Coeff of Maia 14.6, Plt Count 293, MPV 9.9, Immature Gran % (Auto) 0.400, Neut % (Auto) 76.1 H, Lymph % (Auto) 10.3 L, Ector % (Auto) 10.9 H, Eos % (Auto) 2.2, Baso % (Auto) 0.1, Absolute Neuts (auto) 5.8, Absolute Lymphs (auto) 0.78 L, Nucleated RBC % 0, Sodium 136, Potassium 4.3, Chloride 98, Carbon Dioxide 26.0, Anion Gap 13, BUN 14, Creatinine 0.81, Estim Creat Clear Calc 83.87, Est GFR (MDRD) Non-Af 97, BUN/Creatinine Ratio 17.1, Glucose 153 H, Calcium 9.1 10/18/24 07:59: POC Glucose 134 H 10/18/24 11:10: POC Glucose 193 H Microbiology: Microbiology 10/10/24 01:50 Blood Culture (Wb) - Anticubital Right Blood Culture - Final No growth in 5 days. 10/10/24 01:37 Blood Culture (Wb) - Anticubital Left Blood Culture - Final No growth in 5 days. 10/10/24 03:18 Urine Catheter - Robb Urine Culture - Final Klebsiella pneumoniae sp pneum Presumptive C albicans Escherichia coli 10/10/24 03:05 Mucosa - Nasopharyngeal Respiratory Panel (PCR) - Final 10/10/24 03:18 Urine Catheter - Catheter Streptococcus pneumoniae Antigen (M - Final 10/10/24 03:18 Urine Catheter - Robb Legionella Antigen - Final 10/10/24 01:40 Mucosa - Nose SARS-CoV-2, Influenza & RSV (PCR) - Final D/C Instructions Discharge Diet: - (DASH diet) DC O2, CPAP, BIPAP Needs PSN CPAP & BiPAP: BiPAP & CPAP Settings per PSN Mode BiPAP 10/18/24 02:36 Bipap Delivery Device Face Mask 10/18/24 02:36 BiPAP Inspiratory Pressure 10/18/24 02:36 BiPAP Expiratory Pressure 8 10/18/24 02:36 BiPAP Rate 14 10/18/24 02:36 Fraction of Inspired Oxygen ( 30 10/18/24 02:36 FIO2) Total Flow Rate 60 10/11/24 22:39 Home O2 Discharge instructions: No Meaningful Use Info Meaningful Use Meaningful Use Diagnoses (Choose all that apply): CHF CHF ILDA/ARB ordered at discharge?: No Reason ILDA/ARB not ordered?: Worsening renal function Documented LVEF (%): 35 Ischemic Stroke Statin Dosing Therapy Reference: STATIN DOSE THERAPY REFERENCE: * Patients > 75 years receive moderate or high dose statin therapy. * Patients 75 years or YOUNGER should receive HIGH intensity statin dose unless contraindicated. You will be required to document reason for non-treatment if statin daily dose does not meet guidelines. HIGH DOSE STATIN THERAPY DAILY Atorvastatin > than or = to 40 mg Rosuvastatin > than or = to 20 mg Amlodipine + Atorvastatin > than or = to 2.5/40 mg Ezetimibe + Simvastatin 10/80 mg Simvastatin 80mg Discharge Plan Admission Admit Date/Time: 10/10/24 04:04 Primary Reason for Your Visit: Confusion and shortness of breath Attending Provider: Nicole Smith Primary Care Provider: Kendy Modi Consulting Providers: Kendra Yuan; Prateek Smith; Chris Collins; Cy Arnett; Armando Ritchie; Matt Penny Instructions Patient Instructions: ED Heart Failure, Congestive (CHF) Additional Instructions / Restrictions: DISCHARGE INSTRUCTIONS PLEASE READ *Please take this with you to your next doctors appointment* - You will have multiple medication changes to optimize your medications for your heart -You will be discharged on 40 mg of Lasix, you will take 40 mg in the morning and 40 mg in the afternoon, he will also be discharged on hydralazine 4 times daily, and isosorbide mononitrate 30 mg daily -Your amlodipine has been stopped to allow room to adjust other medications, you will not take this on discharge, given your potassium levels being stable during your admission your potassium chloride has also been held -Would recommend lab work (BMP) to check your potassium and kidney function in 3-4 days through your primary care physician's office. Please call their office upon discharge to obtain order for lab work. They may need further adjustments to your medications based on these labs -Would monitor your glucose closely in the event your insulin needs increased or decreased once you are out of the hospital -Please follow-up with cardiology upon discharge. Please call their office to schedule an appointment for 4 to 6 weeks, you will discuss further management and if necessary further workup on an outpatient basis -Weigh yourself every day. A sudden weight gain can mean you are retaining fluid. Weigh yourself at the same time of day and in the same kind of clothes. Ideally, weigh yourself first thing in the morning after you empty your bladder, but before you eat breakfast. -Please call your physician if your weight goes up by more than 2 pounds in 1 day or 5 pounds in 1 week. This can be a sign that you are retaining more fluid than you should be. Clues to weight gain include checking your ankles for swelling, or noticing you are short of breath when you lie down -Please limit your sodium intake to less than 3 g/day. Here are tips: Limit canned, dried, packaged, and fast foods. Don't add salt to your food at the table. Season foods with herbs instead of salt when you cook. When you eat out, ask that the chainstitch seat joiner not add any salt to your dish. Don't eat fried or greasy foods. Be careful of bottled beverages. They can contain a lot of salt -Call 911 right away if you have: -Severe shortness of breath, such that you can't catch your breath even while resting -Severe chest pain that does not resolve with rest or nitroglycerin -Hoehne, foamy mucus with cough and shortness of breath -An ongoing rapid or irregular heartbeat -Passing out or fainting -Stroke symptoms such as sudden numbness or weakness on one side of your face, arm, or leg or sudden confusion, trouble speaking or vision changes -Please follow-up with urology upon discharge for continued management of your Robb catheter. -Please call your primary care provider's office upon discharge to schedule a hospital follow up within 1 week. -For any concerning signs or symptoms please call 911 or proceed to the nearest emergency department Discharge Orders/Prescriptions Prescriptions: New furosemide 40 mg Tablet 40 mg PO BIDLX 30 Days Qty: 60 0RF hydralazine 10 mg Tablet 10 mg PO 4X/DAY 30 Days Qty: 120 0RF isosorbide mononitrate 30 mg Tablet Extended Release 24 Hr 30 mg PO DAILY 30 Days Qty: 30 0RF Continued insulin glargine-yfgn [Semglee(insulin glarg-yfgn)Pen] 100 unit/mL (3 mL) insulin pen 50 unit subcut BID atorvastatin 20 mg tablet 20 mg PO QDAY aspirin 81 MG tablet,chewable 81 mg PO DAILY insulin lispro [Humalog KwikPen Insulin] 100 unit/mL insulin pen 1 sliding scale dose SC TIDCM Protocol: 6. Sliding Scale Insulin Custom Condition: mg/dl range Dose/Route: Number of Units Condition: 0-200 Dose/Route: 0 Condition: 201-250 Dose/Route: 2 Condition: 251-300 Dose/Route: 4 Condition: 301-350 Dose/Route: 6 Condition: 351-400 Dose/Route: 8 Condition: 401-450 Dose/Route: 10 Condition: 451-500 Dose/Route: 12 Condition: 500+ Dose/Route: 14 Condition: 501+ Dose/Route: CALL MD Protocol Text: INJECT 4 UNITS SUBCUTANEOUSLY ALONG WITH SLIDING SCALE THREE TIMES A DAY AT 0730, 1130, AND 1630 duloxetine 60 MG capsule,delayed release(DR/EC) 30 mg PO DAILY Qty: 30 1RF melatonin 3 mg tablet 3 mg PO QHS simethicone 125 mg tablet,chewable 125 mg PO 4X/DAY PRN (Reason: abdominal distention) tamsulosin [Flomax] 0.4 mg capsule 0.8 mg PO QHS Tums 300 mg (750 mg) tablet,chewable 300 mg PO TID PRN (Reason: dyspepsia) [place] Saline 0.65 % aerosol,spray 2 spray intranasal Q4H PRN (Reason: dry nasal passages) Rx Instructions: while awake carvedilol 6.25 mg Tablet 6.25 mg PO BID Qty: 0 0RF metformin 500 mg tablet extended release 24 hr 500 mg PO BID gabapentin 300 mg capsule 300 mg PO DAILY pantoprazole 40 mg tablet,delayed release (DR/EC) 40 mg PO DAILY acetaminophen 325 mg capsule 650 mg PO Q6H PRN (Reason: pain) clopidogrel 75 mg tablet 75 mg PO DAILY Qty: 90 3RF Discontinued amlodipine 10 mg tablet 10 mg PO DAILY potassium chloride [Klor-Con M20] 20 mEq tablet,ER particles/crystals 20 meq PO DAILY sodium chloride 0.9 % Parenteral Solution 100 ea IV .continuous Referrals / Follow Up: Kendy Modi MD [Primary Care Provider] - Within 1 Week Armando Ritchie MD [Med Staff - Active Staff] - (Continue to follow with urology on discharge for management of your catheter) Etienne Darden MD [Med Staff - Active Staff] - See Referral Note (Follow-up in the cardiology office in 4 to 6 weeks) Disposition Disposition (needs filled in before D/C Order can be placed): Home Health Service Charges/Coding Visit Charges Inpatient E&M: 54820 Disch Hosp >30min
[2024-10-18] MEDS: Insulin Lispro 100 UNIT/ML INSULN.PEN SC (12:56)
[2024-10-18 14:04] VITALS: BP 120/71; PULSE 83; RESP 16; TEMP 36.4; O2SAT 94
--- NOTE | 2024-10-18 14:20 | CASEMGMT ---
Addendum entered by Maggie Victoria 10/18/24 14:24: Home O2 testing has been completed. Pt does not qualify for home O2. Original Note: RASHI ARVIZU NOTE: Discharge order is in. Rx's have been sent to [facility]. RASHI ARVIZU to room. Pt sitting up in chair in room. He states he is ready to go home and denies having any concerns. His is on the way in to take him home and would like her to be present for review of dc instructions. Diamond MARKHAM, aware. Pt made aware labs are to be done w/in 3-4 days from dc and will need to call Dr Alford office to have these ordered. Pt aware Rx's sent to [facility] and he states they can pick those up today. logan Garner clinical data assistant, to notify [facility] that pt is dc'ing home today. Joaquín FERNANDEZ RN, CM
--- NOTE | 2024-10-18 14:33 | CASEMGMT ---
Discharge Planning Discharge instructions sent to [facility]. Patsy Riley DC Planning Asst.
== END 2024-10-18 15:56 | disposition home health service (06) | DRG 189 ==
LOC: ED 04:05 → ICU 05:23 → PCU 10-11 20:53
PROVIDERS: Internal Medicine; Internal Medicine Cardiovascular Disease; Admitting Provider Family Medicine; Emergency Provider Emergency Medicine; PCP Family Medicine; Visit Provider Internal Medicine
DX: J96.01 Acute respiratory failure with hypoxia (principal); N17.0 Acute kidney failure with tubular necrosis; I50.43 Acute on chronic combined systolic (congestive) and diastolic (congestive) heart failure; I21.A1 Myocardial infarction type 2; J18.9 Pneumonia, unspecified organism; E87.20 Acidosis, unspecified; N13.8 Other obstructive and reflux uropathy; I13.0 Hypertensive heart and chronic kidney disease with heart failure and stage 1 through stage 4 chronic kidney disease, or unspecified chronic kidney disease; Z66 Do not resuscitate; E11.65 Type 2 diabetes mellitus with hyperglycemia; F32.A Depression, unspecified; I08.2 Rheumatic disorders of both aortic and tricuspid valves; E11.22 Type 2 diabetes mellitus with diabetic chronic kidney disease; Z93.3 Colostomy status; E11.51 Type 2 diabetes mellitus with diabetic peripheral angiopathy without gangrene; I25.10 Atherosclerotic heart disease of native coronary artery without angina pectoris; K21.9 Gastro-esophageal reflux disease without esophagitis; E78.00 Pure hypercholesterolemia, unspecified; Z79.4 Long term (current) use of insulin; G47.33 Obstructive sleep apnea (adult) (pediatric); E11.40 Type 2 diabetes mellitus with diabetic neuropathy, unspecified; N18.2 Chronic kidney disease, stage 2 (mild); F41.9 Anxiety disorder, unspecified; I95.9 Hypotension, unspecified; N14.11 Contrast-induced nephropathy; R33.8 Other retention of urine; N40.1 Benign prostatic hyperplasia with lower urinary tract symptoms; Z79.82 Long term (current) use of aspirin; Z79.84 Long term (current) use of oral hypoglycemic drugs; Z11.52 Encounter for screening for COVID-19; Z93.2 Ileostomy status; Z92.21 Personal history of antineoplastic chemotherapy; Z95.1 Presence of aortocoronary bypass graft; Z95.5 Presence of coronary angioplasty implant and graft; Z86.73 Personal history of transient ischemic attack (TIA), and cerebral infarction without residual deficits
CPT/HCPCS: 36415; 36600; 71045; 71275; 74177; 80048; 80053; 80061; 80076; 81001; 82140; 82803; 82962; 83605; 83735; 83880; 84443; 84484; 85025; 85027; 85610; 85730; 87040; 87077; 87086; 87088; 87186; 87449; 87631; 87633; 93005; 93306; 94002; 94003; 94660; 94762; 97110; 97116; 97162; 97166; 97530; 97535; 97802; 97803; 99285; Q9967; A4216; J0696; J1940; J2405

== ENCOUNTER → 2024-10-21 | Outpatient (CLI) | payer BC, MEDICARE, SELFPAY ==
[2024-10-21 20:31] LABS: Anion Gap 20 (5-15); BUN 17 mg/dL (4-19); BUN/Creat Ratio 13.7 RATIO (10-20); Calcium,Total 9.2 mg/dL (7.6-11.0); Carbon Dioxide 25.1 mmol/L (21.0-32.0); Chloride 94 mmol/L (98-108); Creatinine, Serum 1.23 mg/dL (0.70-1.20); EST Glomerular Filtration Rate 65 (>60); Glucose 121 mg/dL (70-99); Potassium 3.5 mmol/L (3.3-5.1); Sodium Level 139 mmol/L (133-145)
== END | disposition home or self-care (01) ==
LOC: LABSPEC 19:17
PROVIDERS: PCP Family Medicine; Visit Provider Family Medicine
DX: E11.51 Type 2 diabetes mellitus with diabetic peripheral angiopathy without gangrene (principal); I11.0 Hypertensive heart disease with heart failure; I50.9 Heart failure, unspecified
CPT/HCPCS: 80048

== ENCOUNTER → 2024-11-19 | Outpatient (CLI) | payer BC, MEDICARE, SELFPAY ==
[2024-11-19 21:03] LABS: ALB/GLOB Ratio 1.1 RATIO (0.9-2.4); AST(SGOT) 32 U/L (<=37); Alanine Aminotransfer ALT/SGPT 33 U/L (<=46); Albumin, Serum 4.7 g/dL (3.4-4.8); Alkaline Phosphatase 131 U/L (40-129); Anion Gap 23 (5-15); BUN 109 mg/dL (4-19); Calcium,Total 9.8 mg/dL (7.6-11.0); Carbon Dioxide 20.2 mmol/L (21.0-32.0); Chloride 89 mmol/L (98-108); Creatinine, Serum 3.52 mg/dL (0.70-1.20); EST Glomerular Filtration Rate 18 (>60); Globulin 4.1 g/dL (2.2-4.2); Glucose 125 mg/dL (70-99); Potassium 4.3 mmol/L (3.3-5.1); Protein, Total 8.8 g/dL (5.9-8.4); Sodium Level 132 mmol/L (133-145); Total Bilirubin 0.38 mg/dL (0.00-1.30)
[2024-11-19 21:13] LABS: Absolute Lymphocyte Count 1.06 X10^3/uL (0.83-4.51); Absolute Neutrophil Count 7.2 X10^3/uL (2.0-7.7); Basophil# 0.01 X10^3/uL; Basophil% 0.1 % (0-1); Eosinophil# 0.05 X10^3/uL; Eosinophils% 0.6 % (0-5); Hematocrit 40.9 % (40-54); Hemoglobin 13.8 g/dL (13.0-16.5); Lymphocyte # 1.06 X10^3/ul (0.83-4.51); Lymphocyte % 11.8 % (19-41); Mean Corp Hgb Conc 33.7 g/dL (32-36); Mean Corpuscular Hgb 28.8 pg (27.0-32.0); Mean Corpuscular Volume 85.2 fL (80-94); Mean Platelet Vol. 10.4 fl (6.2-12.0); Monocyte% 7.8 % (0-10); NRBC Flagged by Analyzer 0 % (0-5); Neutrophil # 7.15 X10^3/uL (2.7-7.7); Neutrophil % 79.3 % (47-70); Platelet Count 287 K/mm3 (150-450); RBC Distribution Width CV 14.5 % (11.6-14.6); RBC Distribution Width SD 44.7 fl (35.1-43.9)
== END | disposition home or self-care (01) ==
LOC: MFPLAB 15:13
PROVIDERS: PCP Family Medicine; Referring Provider Family Medicine; Visit Provider Family Medicine
DX: R11.10 Vomiting, unspecified (principal)
CPT/HCPCS: 36415; 80053; 85025

== ENCOUNTER → 2024-11-19 | Outpatient (CLI) | payer BC, MEDICARE, SELFPAY | END | disposition home or self-care (01) | LOC: LABSPEC 17:31 | PROVIDERS: PCP Family Medicine; Visit Provider Family Medicine | DX: R39.9 Unspecified symptoms and signs involving the genitourinary system (principal) | CPT/HCPCS: 87077; 87086; 87088; 87186 ==

== ENCOUNTER 2024-11-24 19:15 | Inpatient (IN) | payer BC, MEDICARE, SELFPAY ==
[2024-11-24] VITALS (7 sets, daily range): BP systolic 92–164; BP diastolic 57–76; PULSE 74–83; RESP 12–18; TEMP 36.6–36.8; O2SAT 97–100; BMI 21.3; BMI 20.6
--- NOTE | 2024-11-24 19:32 | CT_ITS ---
PROCEDURE: ABDOMEN/PELVIS WITHOUT CONT 11/24/2024 REASON FOR EXAM: LLQ ABDOMINAL TENDERNESS TECHNIQUE: Abdomen and pelvis CT without intravenous contrast. Noncontrast technique limits evaluation of the abdominal and pelvic viscera. Coronal and Sagittal reconstruction series were provided. One or more dose reduction techniques were used (e.g., Automated exposure control, adjustment of the mA and/or kV according to patient size, use of iterative reconstruction technique). PATIENT PREPARATION: Per protocol ORAL CONTRAST TYPE: None. AMOUNT: mL COMPARISON: CT of the abdomen and pelvis dated 10/10/2024 FINDINGS: Lung bases: Mild dependent atelectasis Liver: Normal size. No obvious mass. Gallbladder: Several calcified gallstones. Spleen: Tiny scattered punctate calcifications, likely sequela of granulomatous disease. Pancreas: Normal size. No surrounding inflammation. Adrenals: Unremarkable Kidneys: Bilateral vessel calcifications. No evidence of hydronephrosis bilaterally. Bladder: Decompressed urinary bladder secondary to a suprapubic Robb catheter. Reproductive Organs: Prostate gland is grossly unremarkable. Bowel: Status post bilateral ventral ileostomies. The stomach is markedly distended with air-fluid level, no wall thickening or adjacent stranding. Underlying gastric outlet obstruction can not be excluded. The small bowel loops appear grossly unremarkable. There is a small right ventral parastomal hernia containing a focal loop of small bowel. No small bowel dilatation or adjacent stranding to suggest obstruction. Status post colectomy. Right colon appears grossly unremarkable. Appendix: The appendix is not visualized, likely surgically absent. Lymph nodes: No lymphadenopathy. Vasculature: Extensive atherosclerotic calcification of the abdominal aorta and branches. Peritoneum / Retroperitoneum: No free air or free fluid. Bones: Unremarkable CT/Abdomen/Pelvis without Cont IMPRESSION: Cholelithiasis. No radiographic evidence of acute cholecystitis. Markedly distended stomach with air-fluid level, no wall thickening or adjacent stranding. Underlying gastric outlet obstruction can not be excluded. Bilateral ventral ileostomies with a small right ventral parastomal hernia cont aining a small focal loop of small bowel. No wall thickening or adjacent stranding is demonstrated. Reading [facility]
[2024-11-24] MEDS: Ondansetron 4 MG/2 ML Vial IV (19:47)
[2024-11-24] MEDS: 0.9% Normal Saline (1000mL) 1,000 ML 999 ML IV ×2 (19:47→21:19)
--- NOTE | 2024-11-24 20:00 | EX.ED.DYSGE1 ---
HPI <VIVIAN Umana - Last Filed: 11/24/24 21:54> History of Present Illness Chief Complaint: Nausea/Vomiting/Diarrhea Narrative Narrative: Patient presenting today with nausea and vomiting he has had intermittently over the past week. He did see his PCP for this early last week, he has a suprapubic catheter due to urinary retention, UA was obtained and he was started on ciprofloxacin for a UTI. He was prescribed Phenergan which has not been helping. He had outpatient labs last week that showed an MADELEINE, he was told to come into the emergency department over the weekend if his symptoms got any worse. He reports that he is drinking very little and feels dehydrated. He has a history of colorectal cancer with ileostomy, he has had increased watery stools which is unusual for him. He was on antibiotics in October, he denies any history of C. difficile. He reports that he is now incredibly weak as a result of the dehydration, prompting him to come in. He denies fevers, chills, abdominal pain, hematemesis, and blood in the stool. [facility] <VIVIAN Umana - Last Filed: 11/24/24 21:54> [facility] Medical History Ileostomy present Colostomy in place Orthostatic hypotension Essential hypertension Loss of hearing Wears glasses Cancer Depression Insulin dependent diabetes mellitus Walker as ambulation aid Arthritis High cholesterol Restless legs Injury of back Injury of head and neck Syncope Dietary restriction Gastric reflux Non-smoker CPAP (continuous positive airway pressure) dependence Shortness of breath on exertion Leg cramps History of pain when walking History of echocardiogram History of stress test Cardiology follow-up encounter History of heart attack Colorectal cancer Dysphagia invasive rectal adenocarcinoma Diabetic neuropathy Restrictive lung disease Type 2 diabetes mellitus Anxiety disorder GERD (gastroesophageal reflux disease) Carotid artery disease Obstructive sleep apnea 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 Peripheral vascular occlusive disease CVA (cerebral vascular accident) ALEJANDRO (obstructive sleep apnea) Dyslipidemia HTN (hypertension) Home Medications ?Medication ?Instructions ?Recorded ?Last Taken ?Type aspirin 81 mg chewable tablet 81 mg PO DAILY heart health 03/20/16 03/10/23 History insulin lispro 100 unit/mL 1 sliding scale dose subcut TIDCM 09/26/21 03/10/23 History subcutaneous pen (Humalog KwikPen diabetes (U-100) Insulin) clopidogrel 75 mg tablet 75 mg PO DAILY blood thinner #90 10/10/23 Unknown Rx tabs pantoprazole 40 mg tablet,delayed 40 mg PO DAILY GERD 12/01/23 Unknown History release calcium carbonate (Tums) 300 mg PO TID PRN dyspepsia 01/31/24 Unknown History melatonin 3 mg tablet 3 mg PO QHS sleep 01/31/24 Unknown History sodium chloride 0.65 % nasal spray 2 spray intranasal Q4H PRN dry 01/31/24 Unknown History aerosol ([place] Saline) nasal passages carvedilol 6.25 mg tablet 6.25 mg PO BID blood pressure #0 02/09/24 Unknown Rx tabs acetaminophen 325 mg capsule 650 mg PO Q6H PRN pain 05/21/24 Unknown History atorvastatin 20 mg tablet 20 mg PO QDAY cholesterol 05/21/24 Unknown History insulin glargine-yfgn 100 unit/mL 45 unit subcut BID diabetes 05/21/24 Unknown History (3 mL) subcutaneous pen (Semglee (insulin glargine-yfgn) Pen) gabapentin 300 mg capsule 300 mg PO DAILY nerve pain 08/25/24 Unknown History metformin 500 mg tablet,extended 500 mg PO BID diabetes 08/25/24 Unknown History release 24 hr duloxetine 30 mg capsule,delayed 30 mg PO QDAY 10/30/24 Unknown History release furosemide 40 mg tablet 40 mg PO BIDLX 30 days #60 tabs 10/30/24 Unknown Rx hydralazine 10 mg tablet 10 mg PO 4X/DAY 30 days #120 tabs 10/30/24 Unknown Rx isosorbide mononitrate 30 mg 30 mg PO DAILY 30 days #30 tabs 10/30/24 Unknown Rx tablet,extended release 24 hr Allergy/AdvReac Type Severity Reaction Status Date / Time No Known Allergies Allergy Verified 11/24/24 19:19 Family History Father CAD (coronary artery disease) Hypertension Cancer leukemia Diabetes Heart disease High cholesterol Mother CVA (cerebral vascular accident) Diabetes Breast cancer Brother Diabetes Surgical History History of bilateral cataract extraction History of left heart catheterization (LHC) (~01/22/15) History of right and left heart catheterization (LHC) (~12/25/14) History of eye surgery PTCA Left Anterior Tibial and Paroneal Artery History of coronary artery stent placement (01/02/15) H/O coronary artery bypass surgery (05/30/08) History of right-sided carotid endarterectomy Excision Max.Zygoma Face Tumor History of tonsillectomy History of herniorrhaphy Social History household members: spouse Smoking Status: Never smoker alcohol intake: never substance use type: does not use caffeine: Yes what type of physical activity do you participate in: none ROS <VIVIAN Umana - Last Filed: 11/24/24 21:54> ROS ED Constitutional Constitutional ED: Denies chills or fever(s) Cardiovascular Cardiovascular: Denies chest pain Respiratory/Chest Respiratory/Chest: Denies dyspnea Gastrointestinal Gastrointestinal: Reports diarrhea, nausea and vomiting; Denies abdominal pain Genitourinary Genitourinary ED: Denies hematuria or urinary frequency Musculoskeletal Musculoskeletal: Denies arthralgias or myalgias Integumentary Denies rash Neurologic Neurologic: Reports weakness EXAM <VIVIAN Umana - Last Filed: 11/24/24 21:54> Physical Exam Const Vital Signs: 11/24/24 19:16 11/24/24 19:18 11/24/24 20:18 Temperature 98.3 F 98.3 F 98.3 F Temperature Source Temporal Oral Oral Pulse Rate 81 81 79 Respiratory Rate 18 18 13 Blood Pressure 92/57 L 92/57 L 164/70 H Blood Pressure Mean 68 68 101 Pulse Ox 99 99 97 Oxygen Delivery Method Room Air Room Air Room Air 11/24/24 21:00 11/24/24 22:00 Temperature 98.3 F 98.3 F Temperature Source Oral Oral Pulse Rate 74 76 Respiratory Rate 12 18 Blood Pressure 147/71 H 159/76 H Blood Pressure Mean 96 103 Pulse Ox 98 97 Oxygen Delivery Method Room Air Room Air Positive well nourished, well developed and no apparent distress General Appearance ED: well developed HEENT Reports normocephalic, head/scalp atraumatic and dry mucous membranes Mouth ED: Yes dry mucous membranes Mouth: dry mucous membranes Eyes PERRL and EOMs intact bilaterally Neck full ROM and supple Chest Wall inspection of chest normal Resp normal respiratory effort and clear to auscultation bilaterally Cardio regular rate and regular rhythm GI soft to palpation, non-distended and no masses GI Narrative: Mild left lower quadrant tenderness to palpation, no rigidity or guarding. Ileostomy with loose stool, previous colostomy site with no surrounding erythema or discharge. Narrative: Suprapubic catheter site with no surrounding erythema or discharge. Back/Spine normal ROM and normal to inspection Extremity normal to inspection and full ROM Neuro oriented x3, moves all extremities, no focal motor deficits and no sensory deficits noted Sensorium / Orientation: awake and alert Psych mental status grossly normal and thought process normal Skin no rashes or lesions noted and no wounds <Dr. Ross Crump DO - Last Filed: 11/24/24 22:57> Physical Exam Const Vital Signs: 11/24/24 19:16 11/24/24 19:18 11/24/24 20:18 Temperature 98.3 F 98.3 F 98.3 F Temperature Source Temporal Oral Oral Pulse Rate 81 81 79 Respiratory Rate 18 18 13 Blood Pressure 92/57 L 92/57 L 164/70 H Blood Pressure Mean 68 68 101 Pulse Ox 99 99 97 Oxygen Delivery Method Room Air Room Air Room Air 11/24/24 21:00 11/24/24 22:00 Temperature 98.3 F 98.3 F Temperature Source Oral Oral Pulse Rate 74 76 Respiratory Rate 12 18 Blood Pressure 147/71 H 159/76 H Blood Pressure Mean 96 103 Pulse Ox 98 97 Oxygen Delivery Method Room Air Room Air [facility] <VIVIAN Umana - Last Filed: 11/24/24 21:54> [facility] Narrative Medical decision making narrative: Patient presenting today with nausea and vomiting he has had over the past week. He does appear dehydrated and is hypotensive at 92/57, he will be given IV fluids. When reviewing previous labs, he did have an MADELEINE with a creatinine of 3.52 5 days ago, this was increased from 1.23 just the month before. Today his creatinine is 4.42 and his BUN is 143. He has an anion gap of 24, sodium 128, potassium 3.1. His lipase is elevated at 1112 consistent with pancreatitis. Stool culture will be obtained given his diarrhea. He is currently being treated for a UTI with Cipro, urine culture was reviewed and grew Klebsiella pneumonia which is sensitive to Cipro. I do not feel we need to repeat another UA at this time. CT scan of the abdomen and pelvis with IV contrast will be obtained. He will be admitted for his pancreatitis and MADELEINE. Patient has been given IV fluids, Zofran, and morphine. Lab Data Attestation: I reviewed the patient's lab results. Labs: Laboratory Results - last 24 hr 11/24/24 19:55 WBC 8.9 RBC 4.40 L Hgb 12.8 L Hct 35.7 L MCV 81.1 MCH 29.1 MCHC 35.9 RDW Std Deviation 40.2 RDW Coeff of Maia 13.8 Plt Count 225 MPV 10.5 Immature Gran % (Auto) 0.500 Neut % (Auto) 79.5 H Lymph % (Auto) 9.1 L Chase % (Auto) 10.2 H Eos % (Auto) 0.6 Baso % (Auto) 0.1 Absolute Neuts (auto) 7.1 Absolute Lymphs (auto) 0.81 L Nucleated RBC % 0 Sodium 128 L Potassium 3.1 L Chloride 82 L Carbon Dioxide 21.0 Anion Gap 24 H BUN 143 H* Creatinine 4.42 H Estim Creat Clear Calc 14.18 L Est GFR (MDRD) Non-Af 14 L BUN/Creatinine Ratio 32.4 H Glucose 181 H Calcium 9.3 Total Bilirubin 0.31 AST 34 ALT 32 Alkaline Phosphatase 116 Total Protein 7.7 Albumin 4.2 Globulin 3.5 Albumin/Globulin Ratio 1.2 Lipase 1112 H Radiography Diagnostic Testing: Clinical Impression(s) from Imaging Studies Abdomen/Pelvis CT 11/24/24 19:32 IMPRESSION: Cholelithiasis. No radiographic evidence of acute cholecystitis. Markedly distended stomach with air-fluid level, no wall thickening or adjacent stranding. Underlying gastric outlet obstruction can not be excluded. Bilateral ventral ileostomies with a small right ventral parastomal hernia containing a small focal loop of small bowel. No wall thickening or adjacent stranding is demonstrated. Reading Location: [facility] <Dr. Ross Crump, DO - Last Filed: 11/24/24 22:57> [facility] Lab Data Labs: Laboratory Results - last 24 hr 11/24/24 19:55 WBC 8.9 RBC 4.40 L Hgb 12.8 L Hct 35.7 L MCV 81.1 MCH 29.1 MCHC 35.9 RDW Std Deviation 40.2 RDW Coeff of Maia 13.8 Plt Count 225 MPV 10.5 Immature Gran % (Auto) 0.500 Neut % (Auto) 79.5 H Lymph % (Auto) 9.1 L Chase % (Auto) 10.2 H Eos % (Auto) 0.6 Baso % (Auto) 0.1 Absolute Neuts (auto) 7.1 Absolute Lymphs (auto) 0.81 L Nucleated RBC % 0 Sodium 128 L Potassium 3.1 L Chloride 82 L Carbon Dioxide 21.0 Anion Gap 24 H BUN 143 H* Creatinine 4.42 H Estim Creat Clear Calc 14.18 L Est GFR (MDRD) Non-Af 14 L BUN/Creatinine Ratio 32.4 H Glucose 181 H Calcium 9.3 Total Bilirubin 0.31 AST 34 ALT 32 Alkaline Phosphatase 116 Total Protein 7.7 Albumin 4.2 Globulin 3.5 Albumin/Globulin Ratio 1.2 Lipase 1112 H Radiography Diagnostic Testing: Clinical Impression(s) from Imaging Studies Abdomen/Pelvis CT 11/24/24 19:32 IMPRESSION: Cholelithiasis. No radiographic evidence of acute cholecystitis. Markedly distended stomach with air-fluid level, no wall thickening or adjacent stranding. Underlying gastric outlet obstruction can not be excluded. Bilateral ventral ileostomies with a small right ventral parastomal hernia containing a small focal loop of small bowel. No wall thickening or adjacent stranding is demonstrated. Reading Location: [facility] Management Discussion w/another healthcare provider: Hospitalist Treatment and Re-Evaluation :: I evaluated the patient with the physician admissions assistant and agree with their history present illness physical exam and plan of care. My personal evaluation of the patient as documented below Patient presented to the ER with complaints of generalized fatigue/weakness and watery stool output from his colostomy. He states he was in the hospital roughly 1 month ago and on antibiotics at that time. He reports he was seen by his family doctor and had outpatient labs and a urine sample as there was concern for potential UTI causing his symptoms. He states has been taking the Cipro as directed but despite doing this his watery diarrhea and fatigue are worsening and now he also has midepigastric abdominal pain. Secondary to this he presents for evaluation PE: General: Awake alert no acute distress Heart: Regular rate and rhythm HEENT: Mucous membranes are dry and tacky without secondary findings to suggest infection Eyes: No scleral icterus noted Abdomen: There is voluntary guarding in the midepigastric region. Colostomy is in place with watery brown stool in the colostomy bag. There is no obvious distention. No surrounding soft tissue skin changes to suggest infection : Suprapubic catheter in place draining urine into the Robb bag without surrounding soft tissue changes to suggest infection at the insertion site MDM: Patient presented to the ER with stable vitals. With his report of recently being treated for UTI but watery diarrhea and as he has been admitted to the hospital recently there is concern for a infectious diarrhea such as C. difficile Salmonella or E. coli stool stool study will be obtained. Physical exam shows dehydration so there is concern for electrolyte abnormality and/or acute kidney injury. Basic blood work was ordered and is consistent with MADELEINE as his creatinine is elevated from 1.25 in October to 4.5 today. The patient's lipase is also elevated consistent with pancreatitis. The patient CT scan showed no cyst or pseudocyst of the pancreas but it did show multiple gallstones which could have led to gallstone pancreatitis. The patient also has distention of his stomach which radiology is concern for potential gastric outlet obstruction. However he has only had 1-2 bouts of vomiting and no obvious distention on exam and therefore I do not feel there is need for emergent transfer of this. Patient can be evaluated by general surgery and/or GI with need for potential EGD or ERCP. he will be given IV hydration secondary to his MADELEINE and will need admitted to the hospital for continued fluid treatment and further consultation. The case was discussed with the hospitalist who agrees to accept the patient for continued care Discharge Plan Dx/Rx/DC Orders Clinical Impression: Pancreatitis, MADELEINE (acute kidney injury), Dehydration, Diarrhea, Nausea & vomiting Disposition Disposition: Acute Care [facility]
[2024-11-24 20:12] LABS: Absolute Lymphocyte Count 0.81 X10^3/uL (0.83-4.51); Absolute Neutrophil Count 7.1 X10^3/uL (2.0-7.7); Basophil# 0.01 X10^3/uL; Basophil% 0.1 % (0-1); Eosinophil# 0.05 X10^3/uL; Eosinophils% 0.6 % (0-5); Hematocrit 35.7 % (40-54); Hemoglobin 12.8 g/dL (13.0-16.5); Lymphocyte # 0.81 X10^3/ul (0.83-4.51); Lymphocyte % 9.1 % (19-41); Mean Corp Hgb Conc 35.9 g/dL (32-36); Mean Corpuscular Hgb 29.1 pg (27.0-32.0); Mean Corpuscular Volume 81.1 fL (80-94); Mean Platelet Vol. 10.5 fl (6.2-12.0); Monocyte% 10.2 % (0-10); NRBC Flagged by Analyzer 0 % (0-5); Neutrophil # 7.05 X10^3/uL (2.7-7.7); Neutrophil % 79.5 % (47-70); Platelet Count 225 K/mm3 (150-450); RBC Distribution Width CV 13.8 % (11.6-14.6); RBC Distribution Width SD 40.2 fl (35.1-43.9); White Blood Count 8.9 K/mm3 (4.4-11.0)
[2024-11-24 20:56] LABS: ALB/GLOB Ratio 1.2 RATIO (0.9-2.4); AST(SGOT) 34 U/L (<=37); Alanine Aminotransfer ALT/SGPT 32 U/L (<=46); Albumin, Serum 4.2 g/dL (3.4-4.8); Alkaline Phosphatase 116 U/L (40-129); Anion Gap 24 (5-15); BUN 143 mg/dL (4-19); BUN/Creat Ratio 32.4 RATIO (10-20); Calcium,Total 9.3 mg/dL (7.6-11.0); Chloride 82 mmol/L (98-108); Creatinine, Serum 4.42 mg/dL (0.70-1.20); EST Glomerular Filtration Rate 14 (>60); Estimated Creatinine Clearance 14.18 ml/min (50-250); Globulin 3.5 g/dL (2.2-4.2); Glucose 181 mg/dL (70-99); Lipase 1112 U/L (13-75); Potassium 3.1 mmol/L (3.3-5.1); Protein, Total 7.7 g/dL (5.9-8.4); Sodium Level 128 mmol/L (133-145); Total Bilirubin 0.31 mg/dL (0.00-1.30)
[2024-11-24] MEDS: Morphine 4 MG/ML Syringe IV (21:19)
--- NOTE | 2024-11-24 21:43 | PCM.HP.STD ---
HPI - General General Date of Admission: 11/24/24 Date of Service: 11/24/24 Chief Complaint: Nausea/vomiting with dehydration and weakness HPI Narrative MITCH VEGA, is a 69 M who presented to [facility] ED on 11/24/2024 with nausea/vomiting with dehydration and weakness. Patient was recently hospitalized here from 10/10-10/18. Initially presented with confusion and dyspnea concerning for recurrent UTI in setting of chronic suprapubic catheter. However was found to NSTEMI suspected secondary to new HFrEF with EF 35 to 40%, severe LV segmental wall motion abnormalities and stage III diastolic dysfunction. Cardiology followed and plan was for stress test once patient was medically optimized. Had significant improvement on heavy IV Lasix and was able to be weaned off of oxygen completely. Hospitalization was complicated by MADELEINE but this resolved by discharge back to his baseline creatinine of 0.9. Was discharged home on p.o. Lasix 40 mg twice daily. Saw cardiology in the office on 10/30 with no changes made to medications and plan for repeat echo in 1 month. Patient began to have nausea with vomiting intermittently over the past week. Saw his PCP earlier this week and had both UA and labs drawn on 11/19. UA was apparently infectious appearing so he was started on ciprofloxacin. However, more concerning finding was significantly worsened creatinine 3.52 and BUN 109. Was told by PCP to come to the ED over the weekend if his symptoms worsened. He reported poor p.o. intake over the past several days and has been drinking very little and feels very dehydrated and weak. In the ED initial BP 92/57 but heart rate in the mid 80s and stable on room air. Labs notable for sodium 128, potassium 3.1, chloride 82, bicarb 21, creatinine 4.42, BUN 143. Lipase 1112. CT abdomen pelvis without contrast showed normal pancreas, cholelithiasis without evidence of acute cholecystitis, markedly distended stomach with air-fluid level but no wall thickening or adjacent stranding and small bowel loops appear unremarkable. Given these findings, hospitalist was contacted for admission. I saw the patient at bedside in the ED, present. Patient was very pleasant and was laying back comfortably in bed and conversing normally. He denied any abdominal pain but did report pain in his mid back area. On exam he had no abdominal pain on palpation or abdominal distention noted. He and his noted that his colostomy output has been more liquidy and slightly heavier than normal for about a week. He reports feeling like his mouth is very dry and that he is thirsty. Does report change in taste. He reports mild mental fogginess but is alert and oriented x 3; agrees that he has seemed a bit foggier mentally than normal. He has continued to have fairly good urine output at home per and has been taking the p.o. Lasix twice daily as prescribed. Notes that his legs have felt very weak and he has had significant difficulty getting out of bed over the past few days. Has gotten 2 L of IV fluids in the ED thus far and does feel a bit better with this. Was also given doses of IV Zofran, morphine and Reglan with improvement in his nausea and pain. He denies any fevers or chills. No other acute concerns at this time. [facility] Medical History Ileostomy present Colostomy in place Orthostatic hypotension Essential hypertension Loss of hearing Wears glasses Cancer Depression Insulin dependent diabetes mellitus Walker as ambulation aid Arthritis High cholesterol Restless legs Injury of back Injury of head and neck Syncope Dietary restriction Gastric reflux Non-smoker CPAP (continuous positive airway pressure) dependence Shortness of breath on exertion Leg cramps History of pain when walking History of echocardiogram History of stress test Cardiology follow-up encounter History of heart attack Colorectal cancer Dysphagia invasive rectal adenocarcinoma Diabetic neuropathy Restrictive lung disease Type 2 diabetes mellitus Anxiety disorder GERD (gastroesophageal reflux disease) Carotid artery disease Obstructive sleep apnea 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 Peripheral vascular occlusive disease CVA (cerebral vascular accident) ALEJANDRO (obstructive sleep apnea) Dyslipidemia HTN (hypertension) Home Medications ?Medication ?Instructions ?Recorded ?Last Taken ?Type aspirin 81 mg chewable tablet 81 mg PO DAILY heart health 03/20/16 03/10/23 History insulin lispro 100 unit/mL 1 sliding scale dose subcut TIDCM 09/26/21 03/10/23 History subcutaneous pen (Humalog KwikPen diabetes (U-100) Insulin) clopidogrel 75 mg tablet 75 mg PO DAILY blood thinner #90 10/10/23 Unknown Rx tabs pantoprazole 40 mg tablet,delayed 40 mg PO DAILY GERD 12/01/23 Unknown History release calcium carbonate (Tums) 300 mg PO TID PRN dyspepsia 01/31/24 Unknown History melatonin 3 mg tablet 3 mg PO QHS sleep 01/31/24 Unknown History sodium chloride 0.65 % nasal spray 2 spray intranasal Q4H PRN dry 01/31/24 Unknown History aerosol (Armstrong Saline) nasal passages carvedilol 6.25 mg tablet 6.25 mg PO BID blood pressure #0 02/09/24 Unknown Rx tabs acetaminophen 325 mg capsule 650 mg PO Q6H PRN pain 05/21/24 Unknown History atorvastatin 20 mg tablet 20 mg PO QDAY cholesterol 05/21/24 Unknown History insulin glargine-yfgn 100 unit/mL 45 unit subcut BID diabetes 05/21/24 Unknown History (3 mL) subcutaneous pen (Semglee (insulin glargine-yfgn) Pen) gabapentin 300 mg capsule 300 mg PO DAILY nerve pain 08/25/24 Unknown History metformin 500 mg tablet,extended 500 mg PO BID diabetes 08/25/24 Unknown History release 24 hr duloxetine 30 mg capsule,delayed 30 mg PO QDAY 10/30/24 Unknown History release furosemide 40 mg tablet 40 mg PO BIDLX 30 days #60 tabs 10/30/24 Unknown Rx hydralazine 10 mg tablet 10 mg PO 4X/DAY 30 days #120 tabs 10/30/24 Unknown Rx isosorbide mononitrate 30 mg 30 mg PO DAILY 30 days #30 tabs 10/30/24 Unknown Rx tablet,extended release 24 hr Allergy/AdvReac Type Severity Reaction Status Date / Time No Known Allergies Allergy Verified 11/24/24 19:19 Family History Father CAD (coronary artery disease) Hypertension Cancer leukemia Diabetes Heart disease High cholesterol Mother CVA (cerebral vascular accident) Diabetes Breast cancer Brother Diabetes Surgical History History of bilateral cataract extraction History of left heart catheterization (LHC) (~01/22/15) History of right and left heart catheterization (LHC) (~12/25/14) History of eye surgery PTCA Left Anterior Tibial and Paroneal Artery History of coronary artery stent placement (01/02/15) H/O coronary artery bypass surgery (05/30/08) History of right-sided carotid endarterectomy Excision Max.Zygoma Face Tumor History of tonsillectomy History of herniorrhaphy Social History household members: spouse Smoking Status: Never smoker alcohol intake: never substance use type: does not use caffeine: Yes what type of physical activity do you participate in: none ROS Constitutional Constitutional: Reports fatigue and weakness; Denies chills or fever(s) Eyes Eyes: Denies change in vision Cardiovascular Cardiovascular: Denies chest pain Respiratory/Chest Respiratory/Chest: Denies cough, shortness of breath at rest or shortness of breath with exertion Gastrointestinal Gastrointestinal: Reports abdominal pain, loose stools, nausea and vomiting Genitourinary Genitourinary: Denies burning urination, dysuria or urinary frequency Musculoskeletal Musculoskeletal: Reports back pain; Denies arthralgias or myalgias Neurologic Neurologic: Denies dizziness or headache(s) Vital Signs Vital Signs Vital Signs: 11/24/24 19:16 11/24/24 19:18 11/24/24 20:18 Temperature 98.3 F 98.3 F 98.3 F Temperature Source Temporal Oral Oral Pulse Rate 81 81 79 Respiratory Rate 18 18 13 Blood Pressure 92/57 L 92/57 L 164/70 H Blood Pressure Mean 68 68 101 Pulse Ox 99 99 97 Oxygen Delivery Method Room Air Room Air Room Air 11/24/24 21:00 Temperature 98.3 F Temperature Source Oral Pulse Rate 74 Respiratory Rate 12 Blood Pressure 147/71 H Blood Pressure Mean 96 Pulse Ox 98 Oxygen Delivery Method Room Air Weight Weight: 61.8 kg Body Mass Index (BMI) 21.3 Physical Exam Const alert, oriented x3, no apparent distress and average body habitus Constitutional Narrative: Pleasant upper middle-aged male, alert and oriented x 3, mildly fatigued appearing but otherwise laying back comfortably in bed, conversing normally and in no acute distress. General Appearance: cooperative and comfortable HEENT normocephalic, head/scalp atraumatic, hearing grossly normal bilaterally and nasal mucous membranes and turbinates normal HEENT Narrative: Dry mucous membranes. Eyes PERRL, EOMs intact bilaterally and conjunctivae normal Neck full ROM Chest inspection of chest normal Resp normal respiratory effort, normal air movement, no use of accessory muscles and clear to auscultation bilaterally Cardio regular rate, regular rhythm, no murmurs and peripheral pulses 2+ throughout GI GI Narrative: Abdomen soft, nondistended and nontender to palpation. Hypoactive bowel sounds noted. Back/Spine normal ROM Extremity normal to inspection and no pedal edema Skin no rashes or lesions noted Psych mental status grossly normal Results Lab / Micro Data 11/24/24 19:55 11/24/24 19:55 Labs: Laboratory Results - last 24 hr 11/24/24 19:55: WBC 8.9, RBC 4.40 L, Hgb 12.8 L, Hct 35.7 L, MCV 81.1, MCH 29.1, MCHC 35.9, RDW Std Deviation 40.2, RDW Coeff of Maia 13.8, Plt Count 225, MPV 10.5, Immature Gran % (Auto) 0.500, Neut % (Auto) 79.5 H, Lymph % (Auto) 9.1 L, Barrow % (Auto) 10.2 H, Eos % (Auto) 0.6, Baso % (Auto) 0.1, Absolute Neuts (auto) 7.1, Absolute Lymphs (auto) 0.81 L, Nucleated RBC % 0, Sodium 128 L, Potassium 3.1 L, Chloride 82 L, Carbon Dioxide 21.0, Anion Gap 24 H, BUN 143 H*, Creatinine 4.42 H, Estim Creat Clear Calc 14.18 L, Est GFR (MDRD) Non-Af 14 L, BUN/Creatinine Ratio 32.4 H, Glucose 181 H, Calcium 9.3, Total Bilirubin 0.31, AST 34, ALT 32, Alkaline Phosphatase 116, Total Protein 7.7, Albumin 4.2, Globulin 3.5, Albumin/Globulin Ratio 1.2, Lipase 1112 H Micro: Microbiology 11/24/24 20:32 Stool Stool Lactoferrin - Final Assessment & Plan Assessment/Plan (1) MADELEINE (acute kidney injury): (2) Uremia: (3) Pancreatitis: PLAN: Plan Patient is a 69-year-old male who presented to [facility] ED on 11/24/24 with nausea/vomiting with dehydration and weakness. 1. Severe MADELEINE with uremia ? Admit under inpatient status to PCU. Nephrology consulted. Creatinine 4.42, BUN 143 on admit. Creatinine 0.8, BUN 14 on recent hospital discharge on 10/18. BMP on 4/15 with creatinine 3.52, BUN 109 so suspect steady worsening recently. Very likely prerenal etiology secondary to overdiuresis and GI losses from increased to output and nausea/vomiting. Had acute HFrEF on admission and October and was discharged on p.o. Lasix 40 mg twice daily and was previously not on any home diuretic. Urine sodium and creatinine ordered to calculate FeNa. Given 2 L of IV fluids in the ED and will run another 1 L of fluids as maintenance fluids tonight. Has symptoms of uremia including nausea/vomiting, change in taste and mental fogginess. Otherwise labs stable and patient with no volume overload, no acute dialysis needs. Monitor daily BMP and urine output. Briefly discussed with patient and he is not sure yet if he would want temporary dialysis if needed, is open to discussing this further. 2. Acute pancreatitis, concern for gastric outlet obstruction ? Lipase 1112 and patient with mild epigastric pain radiating to the back on admit. CT abdomen pelvis with no evidence of pancreatitis but given elevated lipase and pain, meets criteria for pancreatitis. Unclear etiology. Does not use alcohol. Cholelithiasis noted on CT but no evidence of acute cholecystitis and liver enzymes normal. CT did also show marked distention of the stomach with concern for possible gastric outlet obstruction. However, abdomen is not distended and patient comfortable at rest after doses of medications for nausea and pain. Suspect mild functional gastroparesis; gave dose of IV Reglan in the ED and will order Reglan as needed for now. Giving IV fluids as noted above. Okay for clear liquid diet for now. 3. Hyponatremia ? Sodium 128 on admit. Chloride very low at 82. Presume secondary to dehydration from diuresis and GI losses. Given heavy IV fluids resuscitation on admit. Follow-up a.m. sodium level. 4. Hypokalemia ? Potassium 3.1 on admit. Mag normal, Phos elevated. Presume secondary to GI losses. Will replete as needed. 5. Chronic HFrEF, history of CAD with CABG and stenting, history of PAD, history of carotid stenosis with right CEA, history of CVA, hypertension, hyperlipidemia ? Follows with cardiology. Had prior history of heart failure due to ischemic cardiomyopathy with recovered ejection fraction. History of CABG x 5 in 2007 and stenting in 2014. On recent admission in October was found to be volume overloaded and echo showed reduced EF of 35 to 40% with stage III diastolic dysfunction and severe LV segmental wall motion abnormalities. Cardiology recommended optimizing patient during hospitalization with plan for outpatient stress test. Was scheduled for stress test on 11/26 and for repeat echo on 12/04. Would recommend discussing with cardiology office if reasonable to complete these while inpatient versus waiting till after this admission. Continue home aspirin, statin, Coreg and nitrate. Will hold home Lasix and hydralazine for now. Will also hold home Plavix for now in case of need for HD catheter placement for dialysis. 6. Urinary retention with chronic suprapubic catheter ? Suprapubic catheter in place, site appears clean with no surrounding erythema or discharge. UA on admit stable from previous, no concern for UTI. No further inpatient needs. 7. Acute debility ? PT/OT/case management consulted. Patient lives at home with and has decent functional status at baseline. Presume that acute weakness is secondary to dehydration and kidney failure with uremia as noted above. Appreciate therapy recommendations. 8. Type 2 diabetes mellitus with diabetic neuropathy ? Home regimen of insulin glargine 45 units twice daily, Humalog sliding scale with meals, metformin. Last A1c 7.4% in 04/2024. Patient on clear liquid diet at this time. Will treat with Lantus 15 units twice daily and Humalog sliding scale with medium dosing every 6 hours for now, adjust as needed. Continue home gabapentin. 9. GERD ? Continue home PPI. 10. History of colon cancer ? S/p colostomy placement and ostomy revision back in November 2023. Stable. 11. Depression/anxiety ? Continue home duloxetine. DVT prophylaxis: Heparin subcu CODE STATUS: DNR CCA, DNI Expected disposition: TBD Total clinical time spent by myself addressing the patient's medical issues, reviewing all the data, and collaborating with patient's care team: 75 minutes. Charges/Coding Visit Charges Inpatient E&M: 78387 Init Hosp L3
[2024-11-24] MEDS: Famotidine 20 MG Tablet 40 MG PO (21:51)
[2024-11-24] MEDS: 0.9% Normal Saline (500mL Bag) 500 ML 999 ML IV (22:08)
[2024-11-24] MEDS: Metoclopramide 10 MG/2 ML Vial 5 MG IV (22:53)
[2024-11-24 23:06] LABS: Mucous, Urine 0 SEEN /hpf (<or=2+); Squamous Epithelial Cells - UA 0 SEEN /hpf (0-5)
[2024-11-24 23:09] LABS: Color, Urine Yellow (Yellow); Glucose, Dipstick Normal (Normal); Ketone-Dipstick Negative (Negative); Leukocyte Esterase-Dipstick 500 /ul (Negative); Nitrite-Dipstick Negative (Negative); Occult Blood-Urine 50 /ul (Negative); Protein-Dipstick 30 mg/dl (Negative); Specific Gravity, Urine 1.015 (1.002-1.030); Urine Bilirubin Dipstick Negative (Negative); Urine Clarity Sl. Cloudy (Clear); Urine Urobilinogen Normal (Normal)
[2024-11-24 23:13] LABS: Magnesium 2.4 mg/dL (1.5-2.2); Phosphorus 6.9 mg/dL (2.7-4.5)
[2024-11-24] MEDS: Ceftriaxone 1 GM/50 ML BAG IV (23:17)
[2024-11-24 23:18] LABS: Bacteria 1+ /hpf (None Seen); Hyaline Cast 0-5 SEEN /lpf (0-5); Red Blood Cells-Urine 0-5 SEEN /hpf (0-5); White Blood Cells 25-50 SEEN /hpf (0-5); Yeast-Urine 1+ /hpf (None Seen)
[2024-11-25] VITALS (7 sets, daily range): BP systolic 115–158; BP diastolic 63–79; PULSE 66–83; RESP 14–18; TEMP 36.4–36.8; O2SAT 90–100; BMI 21.0
[2024-11-25] MEDS: Potassium Chloride 10mEq/100mL 10 MEQ/100 ML IV.SOLN. 100 MEQ IV BOLUS ×4 (00:14→03:49)
[2024-11-25 00:18] LABS: Bedside Glucose 147 mg/dL (74-106)
[2024-11-25] MEDS: Lactated Ringers 1,000 ML 125 ML IV (00:25)
[2024-11-25 00:49] LABS: Urine Sodium 38 mmol/L (Not Establ.)
--- NOTE | 2024-11-25 04:36 | CPS ---
Patient does not have home PAP, he will have someone bring it in for tomorrow 11/26/23. Patient offered PAP from hospital to wear [employer] 11/24/24. Patient declined.
[2024-11-25 05:17] LABS: Hematocrit 28.7 % (40-54); Hemoglobin 9.9 g/dL (13.0-16.5); Mean Corp Hgb Conc 34.5 g/dL (32-36); Mean Corpuscular Hgb 28.7 pg (27.0-32.0); Mean Corpuscular Volume 83.2 fL (80-94); Mean Platelet Vol. 10.8 fl (6.2-12.0); Platelet Count 173 K/mm3 (150-450); RBC Distribution Width CV 13.8 % (11.6-14.6); RBC Distribution Width SD 41.4 fl (35.1-43.9); Red Blood Count 3.45 M/mm3 (4.6-6.2); White Blood Count 7.2 K/mm3 (4.4-11.0)
[2024-11-25] MEDS: Heparin Injection (Vial) 5,000 UNIT/ML VIAL 5000 UNIT SC ×3 (05:18→21:30)
[2024-11-25 05:58] LABS: Bedside Glucose 87 mg/dL (74-106)
[2024-11-25 06:05] LABS: Anion Gap 15 (5-15); BUN 116 mg/dL (4-19); BUN/Creat Ratio 39.3 RATIO (10-20); Calcium,Total 8.2 mg/dL (7.6-11.0); Carbon Dioxide 22.8 mmol/L (21.0-32.0); Chloride 96 mmol/L (98-108); Creatinine, Serum 2.95 mg/dL (0.70-1.20); EST Glomerular Filtration Rate 23 (>60); Estimated Creatinine Clearance 20.93 ml/min (50-250); Glucose 112 mg/dL (70-99); Potassium 3.2 mmol/L (3.3-5.1); Sodium Level 134 mmol/L (133-145)
[2024-11-25 07:50] LABS: Hemoglobin 10.4 g/dL (13.0-16.5); Mean Corp Hgb Conc 35.9 g/dL (32-36); Mean Corpuscular Hgb 29.2 pg (27.0-32.0); Mean Corpuscular Volume 81.5 fL (80-94); Mean Platelet Vol. 9.8 fl (6.2-12.0); Platelet Count 168 K/mm3 (150-450); RBC Distribution Width CV 13.7 % (11.6-14.6); RBC Distribution Width SD 40.8 fl (35.1-43.9); Red Blood Count 3.56 M/mm3 (4.6-6.2); White Blood Count 7.2 K/mm3 (4.4-11.0)
[2024-11-25] MEDS: Pantoprazole Sodium 40 MG Tablet PO (08:59)
[2024-11-25] MEDS: Aspirin 81 MG TAB.CHEW PO (08:59)
[2024-11-25] MEDS: DULoxetine Hcl 30 MG Capsule PO (08:59)
[2024-11-25] MEDS: Carvedilol 6.25 MG Tablet PO ×2 (08:59→17:20)
[2024-11-25] MEDS: Isosorbide Mononitrate 30 MG Tablet PO (08:59)
[2024-11-25] MEDS: Gabapentin 300 MG Capsule PO (09:03)
[2024-11-25] MEDS: Insulin Glargine-YFGN 100 UNIT/ML Pen 15 UNIT SC ×2 (09:03→21:31)
[2024-11-25 09:04] LABS: Lipase 1331 U/L (13-75)
[2024-11-25 09:28] LABS: Anion Gap 14 (5-15); BUN 104 mg/dL (4-19); Calcium,Total 8.3 mg/dL (7.6-11.0); Carbon Dioxide 22.4 mmol/L (21.0-32.0); Chloride 99 mmol/L (98-108); EST Glomerular Filtration Rate 26 (>60); Estimated Creatinine Clearance 23.75 ml/min (50-250); Glucose 102 mg/dL (70-99); Potassium 2.8 mmol/L (3.3-5.1); Sodium Level 136 mmol/L (133-145)
[2024-11-25] MEDS: Potassium Chloride Oral Tablet 20 MEQ 40 MEQ PO (12:05)
[2024-11-25 12:39] LABS: Bedside Glucose 149 mg/dL (74-106)
--- NOTE | 2024-11-25 13:06 | CASEMGMT ---
RASHI ARVIZU Assessment Face to Face with patient for initial transition planning/care coordination assessment. RASHI ARVIZU introduced self and role at [facility], pt voices understanding. Pt is A&Ox4 and is resting comfortably in bed and is calm. Care providers, pharmacy, and demographics verified. Admitting dx: Severe MADELEINE with Uremia, Acute Pancreatitis LACE Strata: 3 PCP: Kendy Modi Specialists: [facility], MARIE, Jorden (Oncology). Nephro is currently consulted for increased Creatinine Preferred Pharmacy: [facility] Insurance: [facility] A/B Prescription Benefit: Yes LNOK: Emelia Grimaldoncer (W) Living Arrangements: Pt lives with his and 24 y/o GD in a single story home with a basement and FFSU with 2 steps to enter with bilateral handrails ADLs/IADLs: Pt reports that he requires some assistance with tasks such as showering and that his is able to help. Pt GD is also able to assist as needed. Transportation: Pt . Denies concerns DME: CPAP through [employer] with no additional oxygen. Pulse ox. BP Machine. BGM with sufficient supplies. Rollator. Cane. FWW. W/C. Hospital bed. Extended tub bench. Grab bars. HHC/SNF: Pt states that he is active with [facility]. Pt states that he was seeing PT and SN but only SN recently. Pt states that the HHC and the pts help care for his ostomy at home. Pt has a history at [facility] and states that he does not want to return Pt?s goal: Return to PLOF Plan: Anticipate SNF vs return home with the continuation of skilled HHC. PT states to this RASHI ARVIZU that the pt is needing SNF placement for a short term rehab stay. At this time, the pt states that he is agreeable to review a list of options. Pt states that his also wants the pt to go to a SNF at the time of DC. See PT notes. Pt denies further questions or concerns at this time. Report given to CHOCOLATE DIPPER CM and SW. Melany Barnes RN, CM
--- NOTE | 2024-11-25 13:49 | CHAPLAIN ---
Type of Pastoral Visit _x__ Initial Visit ___ Follow-up Visit ___ On-call Visit ___ General Patient Visit ___ Spiritual Assessment ___ Family Conference ___ Bereavement ___ Rapid Response ___ Code Blue ___ Other (describe below) Pastoral Care Referral From _x__ Patient ___ Family ___ Nurse ___ Physician ___ Weigher Operator ___ Roll Scale Worker ___ Other (describe below) Sacrament/Intervention _x__ Active listening ___ Anointing ___ Mosque ___ Bereavement ___ Communion ___ Angelika exploration ___ ___ Life review _x__ Prayer ___ Reconciliation ___ Sacrament of Sick ___ Supportive presence ___ Wedding ___ Other (describe below) Pastoral Comments patient says that he is really pleased that his family was able to have Easter dinner with him in attendance; pt says that I put off coming in and my family really said I should; pt says that things are getting done here now; pt says that his body is wearing out and that maybe I just need to wave the white flag; patient was asked what he means and he clarifies that he will just be fine if God says that his time is up; presence and prayer welcomed
--- NOTE | 2024-11-25 14:04 | CASEMGMT ---
Discharge Planning A list of SNF providers including quality and resource use data and consistent with the patient's preferred geographic region, medical needs, and insurance network was created in [employer] Guide.? This list was provided to the SW. Patsy Riley Discharge Planning Asst.
--- NOTE | 2024-11-25 14:09 | CASEMGMT ---
Therapy is recommending patient go somewhere short term for rehab. Per RN CM patient is agreeable. SW met with patient. Introduced self and role at [facility]. SW explained therapy's recommendation. Patient verbalized understanding. SW provided patient with a list of nursing home facility providers including quality and resource use data and consistent with patient?s preferred geographic region, medical needs, and insurance network were provided from the [employer] Guide.? SW asked patient to review the list with his and SW will check back tomorrow to see their preferences. Linette Larose CONCAVER ASSISTANT ACCOUNT EXECUTIVE??
--- NOTE | 2024-11-25 15:15 | PCM.CONS.R ---
Assessment & Plan Assessment/Plan (1) MADELEINE (acute kidney injury): (2) Nausea & vomiting: PLAN: Plan Pleasant 69-year-old male presented emergency room with complaints of nausea and vomiting, weakness, admitted for severe MADELEINE and acute pancreatitis (lipase 1112 on admission, noncontrast CT abdomen/pelvis no evidence of pancreatitis). Nonoliguric MADELEINE with normal baseline creatinine likely from significant GI losses, volume depletion with concurrent diuretic use. Blood pressures slightly low on admission to ER. Blood pressures have improved. Patient was given IV fluids in ER and also on maintenance IV fluids. Now off IV fluids and started on clear liquid diet. Per patient no further nausea or vomiting and stool noted to be more thicker. BUN was 143 on admission today 104, creatinine 4.42 on admission today 2.60. Patient is nonoliguric. There is no acute indication for renal placement therapy. Continue holding furosemide and metformin. Potassium low, replacement has been ordered and given. For this admission noncontrast CT of abdomen/pelvis no evidence of hydronephrosis bilaterally, bladder decompressed. Urine culture pending, on rocephin. Further orders forthcoming as hospitalization evolves, thank you for allowing us to participate in the care of Mr. Vega. 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 Lab work in the emergency room yesterday demonstrated creatinine 4.42, BUN 143. Patient was admitted for further evaluation and treatment. Started on IV fluids. Nephrology consulted in view of elevated creatinine. Patient is known to our group from consultation back in October 2024 for MADELEINE. Patient has history of normal baseline creatinine. MADELEINE secondary to ATN, patient did have CT PE protocol. No hydronephrosis, UA suggestive of UTI. During that hospitalization serum creatinine peaked around 2.3 but time of hospital discharge serum creatinine less than 1 mg/dL. Today creatinine improved to 2.6. Patient and state that patient had been feeling unwell for about a week. He was experiencing nausea and vomiting after eating. Also noted out of his ostomy bag stools were more loose/watery. Denies noting blood in Robb. No NSAIDs. Patient states despite feeling unwell continue taking his Lasix. [facility] Medical History Ileostomy present Colostomy in place Orthostatic hypotension Essential hypertension Loss of hearing Wears glasses Cancer Depression Insulin dependent diabetes mellitus Walker as ambulation aid Arthritis High cholesterol Restless legs Injury of back Injury of head and neck Syncope Dietary restriction Gastric reflux Non-smoker CPAP (continuous positive airway pressure) dependence Shortness of breath on exertion Leg cramps History of pain when walking History of echocardiogram History of stress test Cardiology follow-up encounter History of heart attack Colorectal cancer Dysphagia invasive rectal adenocarcinoma Diabetic neuropathy Restrictive lung disease Type 2 diabetes mellitus Anxiety disorder GERD (gastroesophageal reflux disease) Carotid artery disease Obstructive sleep apnea 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 Peripheral vascular occlusive disease CVA (cerebral vascular accident) ALEJANDRO (obstructive sleep apnea) Dyslipidemia HTN (hypertension) Home Medications ?Medication ?Instructions ?Recorded ?Last Taken ?Type aspirin 81 mg chewable tablet 81 mg PO DAILY heart health 03/20/16 03/10/23 History insulin lispro 100 unit/mL 1 sliding scale dose subcut TIDCM 09/26/21 03/10/23 History subcutaneous pen (Humalog KwikPen diabetes (U-100) Insulin) clopidogrel 75 mg tablet 75 mg PO DAILY blood thinner #90 10/10/23 Unknown Rx tabs pantoprazole 40 mg tablet,delayed 40 mg PO DAILY GERD 12/01/23 Unknown History release calcium carbonate (Tums) 300 mg PO TID PRN dyspepsia 01/31/24 Unknown History melatonin 3 mg tablet 3 mg PO QHS sleep 01/31/24 Unknown History sodium chloride 0.65 % nasal spray 2 spray intranasal Q4H PRN dry 01/31/24 Unknown History aerosol ([place] Saline) nasal passages carvedilol 6.25 mg tablet 6.25 mg PO BID blood pressure #0 02/09/24 Unknown Rx tabs acetaminophen 325 mg capsule 650 mg PO Q6H PRN pain 05/21/24 Unknown History atorvastatin 20 mg tablet 20 mg PO QDAY cholesterol 05/21/24 Unknown History insulin glargine-yfgn 100 unit/mL 45 unit subcut BID diabetes 05/21/24 Unknown History (3 mL) subcutaneous pen (Semglee (insulin glargine-yfgn) Pen) gabapentin 300 mg capsule 300 mg PO DAILY nerve pain 08/25/24 Unknown History metformin 500 mg tablet,extended 500 mg PO BID diabetes 08/25/24 Unknown History release 24 hr duloxetine 30 mg capsule,delayed 30 mg PO QDAY 10/30/24 Unknown History release furosemide 40 mg tablet 40 mg PO BIDLX 30 days #60 tabs 10/30/24 Unknown Rx hydralazine 10 mg tablet 10 mg PO 4X/DAY 30 days #120 tabs 10/30/24 Unknown Rx isosorbide mononitrate 30 mg 30 mg PO DAILY 30 days #30 tabs 10/30/24 Unknown Rx tablet,extended release 24 hr Allergy/AdvReac Type Severity Reaction Status Date / Time No Known Allergies Allergy Verified 11/24/24 19:19 Family History Father CAD (coronary artery disease) Hypertension Cancer leukemia Diabetes Heart disease High cholesterol Mother CVA (cerebral vascular accident) Diabetes Breast cancer Brother Diabetes Surgical History History of bilateral cataract extraction History of left heart catheterization (LHC) (~01/22/15) History of right and left heart catheterization (LHC) (~12/25/14) History of eye surgery PTCA Left Anterior Tibial and Paroneal Artery History of coronary artery stent placement (01/02/15) H/O coronary artery bypass surgery (05/30/08) History of right-sided carotid endarterectomy Excision Max.Zygoma Face Tumor History of tonsillectomy History of herniorrhaphy Social History household members: spouse Smoking Status: Never smoker alcohol intake: never substance use type: does not use caffeine: Yes what type of physical activity do you participate in: none ROS ROS Narrative As in HPI Physical Exam Narrative Alert and oriented x 3, no apparent distress S1, S2, RRR Abdomen soft, nontender, ostomy No edema Robb with clear yellow urine in bag Lab / Micro Data 11/25/24 07:43 11/25/24 07:43 Labs: Laboratory Results - last 24 hr 11/24/24 19:55: WBC 8.9, RBC 4.40 L, Hgb 12.8 L, Hct 35.7 L, MCV 81.1, MCH 29.1, MCHC 35.9, RDW Std Deviation 40.2, RDW Coeff of Maia 13.8, Plt Count 225, MPV 10.5, Immature Gran % (Auto) 0.500, Neut % (Auto) 79.5 H, Lymph % (Auto) 9.1 L, [place] % (Auto) 10.2 H, Eos % (Auto) 0.6, Baso % (Auto) 0.1, Absolute Neuts (auto) 7.1, Absolute Lymphs (auto) 0.81 L, Nucleated RBC % 0, Sodium 128 L, Potassium 3.1 L, Chloride 82 L, Carbon Dioxide 21.0, Anion Gap 24 H, BUN 143 H*, Creatinine 4.42 H, Estim Creat Clear Calc 14.18 L, Est GFR (MDRD) Non-Af 14 L, BUN/Creatinine Ratio 32.4 H, Glucose 181 H, Calcium 9.3, Phosphorus 6.9 H, Magnesium 2.4 H, Total Bilirubin 0.31, AST 34, ALT 32, Alkaline Phosphatase 116, Total Protein 7.7, Albumin 4.2, Globulin 3.5, Albumin/Globulin Ratio 1.2, Lipase 1112 H 11/24/24 22:57: Urine Color Yellow, Urine Clarity Sl. Cloudy, Urine pH 5.0, Ur Specific [place] 1.015, Urine Protein 30 H, Urine Glucose (UA) Normal, Urine Ketones Negative, Urine Occult Blood 50 H, Urine Nitrite Negative, Urine Bilirubin Negative, Urine Urobilinogen Normal, Ur Leukocyte Esterase 500 H, Urine RBC 0-5 SEEN, Urine WBC 25-50 SEEN, Ur Squamous Epith Cells 0 SEEN, Urine Bacteria 1+, Hyaline Casts 0-5 SEEN, Urine Mucus 0 SEEN, Urine Yeast 1+, Ur Random Sodium 38, Urine Creatinine 42.10 11/24/24 23:46: POC Glucose 147 H 11/25/24 04:10: WBC 7.2, RBC 3.45 L, Hgb 9.9 L, Hct 28.7 L, MCV 83.2, MCH 28.7, MCHC 34.5, RDW Std Deviation 41.4, RDW Coeff of Maia 13.8, Plt Count 173, MPV 10.8, Sodium 134, Potassium 3.2 L, Chloride 96 L, Carbon Dioxide 22.8, Anion Gap 15, BUN 116 H*, Creatinine 2.95 H, Estim Creat Clear Calc 20.93 L, Est GFR (MDRD) Non-Af 23 L, BUN/Creatinine Ratio 39.3 H, Glucose 112 H, Calcium 8.2 11/25/24 05:16: POC Glucose 87 11/25/24 07:43: WBC 7.2, RBC 3.56 L, Hgb 10.4 L, Hct 29.0 L, MCV 81.5, MCH 29.2, MCHC 35.9, RDW Std Deviation 40.8, RDW Coeff of Maia 13.7, Plt Count 168, MPV 9.8, Sodium 136, Potassium 2.8 L, Chloride 99, Carbon Dioxide 22.4, Anion Gap 14, BUN 104 H*, Creatinine 2.60 H, Estim Creat Clear Calc 23.75 L, Est GFR (MDRD) Non-Af 26 L, BUN/Creatinine Ratio 40.0 H, Glucose 102 H, Calcium 8.3, Lipase 1331 H 11/25/24 12:07: POC Glucose 149 H Micro: Microbiology 11/24/24 20:32 Stool Stool Lactoferrin - Final 11/24/24 20:32 Stool Enteric Bacteriology - Final 11/24/24 20:32 Stool Clostridioides difficile (PCR) - Final Imaging Radiology Impression Abdomen/Pelvis CT 11/24/24 19:32 IMPRESSION: Cholelithiasis. No radiographic evidence of acute cholecystitis. Markedly distended stomach with air-fluid level, no wall thickening or adjacent stranding. Underlying gastric outlet obstruction can not be excluded. Bilateral ventral ileostomies with a small right ventral parastomal hernia containing a small focal loop of small bowel. No wall thickening or adjacent stranding is demonstrated. Reading Location[facility]
[2024-11-25 17:34] LABS: Bedside Glucose 118 mg/dL (74-106)
--- NOTE | 2024-11-25 18:24 | PCM.PN.HOSP ---
Reason for Visit Reason for Visit: Diagnoses Acute pancreatitis without necrosis or infection, unspecified (11/24/24) Acute kidney failure, unspecified (11/24/24) Unspecified kidney failure (11/24/24) Subjective Subjective Patient was seen and examined today, his creatinine is improved-this morning it was 2.6, potassium was low at 2.8 and he was given oral potassium. I talked briefly with nephrology about his care. Objective Data Objective Data Vital Signs: Vital Signs Temp Pulse Resp BP Pulse Ox O2 Del Method 98.3 F 71 15 129/63 H 100 Room Air 11/25/24 15:32 11/25/24 15:32 11/25/24 15:32 11/25/24 15:32 11/25/24 15:32 11/25/24 15:42 Oxygen Delivery Method Room Air Weight: 60.9 kg Body Mass Index (BMI) 21.0 Intake & Output: Intake and Output for Last 24 Hours 11/23/24 11/24/24 11/25/24 23:59 23:59 23:59 Intake Total 2550 / 2550 3210 / 3210 Output Total 1900 / 1900 Balance 2550 / 2550 1310 / 1310 Lab / Micro Data 11/25/24 07:43 11/25/24 07:43 Labs: Laboratory Results - last 24 hr 11/24/24 19:55: WBC 8.9, RBC 4.40 L, Hgb 12.8 L, Hct 35.7 L, MCV 81.1, MCH 29.1, MCHC 35.9, RDW Std Deviation 40.2, RDW Coeff of Maia 13.8, Plt Count 225, MPV 10.5, Immature Gran % (Auto) 0.500, Neut % (Auto) 79.5 H, Lymph % (Auto) 9.1 L, [place] % (Auto) 10.2 H, Eos % (Auto) 0.6, Baso % (Auto) 0.1, Absolute Neuts (auto) 7.1, Absolute Lymphs (auto) 0.81 L, Nucleated RBC % 0, Sodium 128 L, Potassium 3.1 L, Chloride 82 L, Carbon Dioxide 21.0, Anion Gap 24 H, BUN 143 H*, Creatinine 4.42 H, Estim Creat Clear Calc 14.18 L, Est GFR (MDRD) Non-Af 14 L, BUN/Creatinine Ratio 32.4 H, Glucose 181 H, Calcium 9.3, Phosphorus 6.9 H, Magnesium 2.4 H, Total Bilirubin 0.31, AST 34, ALT 32, Alkaline Phosphatase 116, Total Protein 7.7, Albumin 4.2, Globulin 3.5, Albumin/Globulin Ratio 1.2, Lipase 1112 H 11/24/24 22:57: Urine Color Yellow, Urine Clarity Sl. Cloudy, Urine pH 5.0, Ur Specific [place] 1.015, Urine Protein 30 H, Urine Glucose (UA) Normal, Urine Ketones Negative, Urine Occult Blood 50 H, Urine Nitrite Negative, Urine Bilirubin Negative, Urine Urobilinogen Normal, Ur Leukocyte Esterase 500 H, Urine RBC 0-5 SEEN, Urine WBC 25-50 SEEN, Ur Squamous Epith Cells 0 SEEN, Urine Bacteria 1+, Hyaline Casts 0-5 SEEN, Urine Mucus 0 SEEN, Urine Yeast 1+, Ur Random Sodium 38, Urine Creatinine 42.10 11/24/24 23:46: POC Glucose 147 H 11/25/24 04:10: WBC 7.2, RBC 3.45 L, Hgb 9.9 L, Hct 28.7 L, MCV 83.2, MCH 28.7, MCHC 34.5, RDW Std Deviation 41.4, RDW Coeff of Maia 13.8, Plt Count 173, MPV 10.8, Sodium 134, Potassium 3.2 L, Chloride 96 L, Carbon Dioxide 22.8, Anion Gap 15, BUN 116 H*, Creatinine 2.95 H, Estim Creat Clear Calc 20.93 L, Est GFR (MDRD) Non-Af 23 L, BUN/Creatinine Ratio 39.3 H, Glucose 112 H, Calcium 8.2 11/25/24 05:16: POC Glucose 87 11/25/24 07:43: WBC 7.2, RBC 3.56 L, Hgb 10.4 L, Hct 29.0 L, MCV 81.5, MCH 29.2, MCHC 35.9, RDW Std Deviation 40.8, RDW Coeff of Maia 13.7, Plt Count 168, MPV 9.8, Sodium 136, Potassium 2.8 L, Chloride 99, Carbon Dioxide 22.4, Anion Gap 14, BUN 104 H*, Creatinine 2.60 H, Estim Creat Clear Calc 23.75 L, Est GFR (MDRD) Non-Af 26 L, BUN/Creatinine Ratio 40.0 H, Glucose 102 H, Calcium 8.3, Lipase 1331 H 11/25/24 12:07: POC Glucose 149 H 11/25/24 17:16: POC Glucose 118 H Micro: Microbiology 11/24/24 20:32 Stool Stool Lactoferrin - Final 11/24/24 20:32 Stool Enteric Bacteriology - Final 11/24/24 20:32 Stool Clostridioides difficile (PCR) - Final Radiography Diagnostic Testing: Radiology Impression Abdomen/Pelvis CT 11/24/24 19:32 IMPRESSION: Cholelithiasis. No radiographic evidence of acute cholecystitis. Markedly distended stomach with air-fluid level, no wall thickening or adjacent stranding. Underlying gastric outlet obstruction can not be excluded. Bilateral ventral ileostomies with a small right ventral parastomal hernia containing a small focal loop of small bowel. No wall thickening or adjacent stranding is demonstrated. Reading Location: [facility] Physical Exam Const alert, oriented x3 and no apparent distress Constitutional Narrative: Patient appears older than his stated age General Appearance: cooperative, well kempt and well developed Orientation / Consciousness: awake, oriented to person, oriented to place and oriented to time HEENT normocephalic and moist oral mucous membranes Eyes PERRL, EOMs intact bilaterally and conjunctivae normal Neck supple, no JVD, thyroid normal and no carotid bruits General: trachea midline Resp normal respiratory effort and clear to auscultation bilaterally Auscultation: Negative for rales, rhonchi or wheezes Cardio regular rate, regular rhythm, no murmurs, no rub and no gallops GI normal to inspection, nondistended, normoactive bowel sounds, soft to palpation, non-tender and non-distended GI Narrative: Patient has an ileostomy in place and a suprapubic catheter Extremity no clubbing, cyanosis or edema Skin no rashes or lesions noted General Skin Exam: no breakdown Neuro oriented x3, CN's II-XII intact bilaterally, no focal motor deficits and no sensory deficits noted Sensorium / Orientation: awake and alert Speech: speech normal Psych affect normal Assessment & Plan Assessment/Plan (1) MADELEINE (acute kidney injury): PLAN: Plan 1. Acute kidney injury-secondary to nausea and vomiting-nausea and vomiting is resolved at this time, labs will be monitored #2 type 2 diabetes with an patient will remain on his present medication and blood sugars will be monitored he will receive sliding scale insulin #3 recent urinary tract infection with Klebsiella pneumoniae-I will transition the patient over to oral antibiotics Total clinical time spent by myself addressing the patient's medical issues, reviewing all of his data, and collaborating with the patient's care team: 35 minutes Charges/Coding Visit Charges Inpatient E&M: 42047 Subs Hosp L2
[2024-11-25] MEDS: 0.9% Normal Saline (1000mL) 1,000 ML 75 ML IV (19:40)
[2024-11-25] MEDS: Acetaminophen 325 MG Tablet 650 MG PO (19:42)
[2024-11-25] MEDS: MELATONIN 3 MG TABLET PO (21:30)
[2024-11-25] MEDS: Atorvastatin Calcium 20 MG Tablet PO (21:30)
[2024-11-25] MEDS: Cephalexin 500 MG Capsule PO (21:30)
[2024-11-25 22:54] LABS: Bedside Glucose 215 mg/dL (74-106)
[2024-11-25 23:49] LABS: Bedside Glucose 122 mg/dL (74-106)
[2024-11-26 03:08] VITALS: BMI 20.9
[2024-11-26 03:25] VITALS: BP 158/74; PULSE 71; RESP 14; TEMP 36.1; O2SAT 98
[2024-11-26] MEDS: Heparin Injection (Vial) 5,000 UNIT/ML VIAL 5000 UNIT SC ×3 (05:50→23:42)
[2024-11-26] MEDS: Dextrose 10%-Water 250 ML 999 ML IV (06:02)
[2024-11-26 06:37] LABS: Bedside Glucose 133 mg/dL (74-106)
[2024-11-26 07:11] LABS: Anion Gap 12 (5-15); BUN 60 mg/dL (4-19); BUN/Creat Ratio 37.7 RATIO (10-20); Calcium,Total 8.3 mg/dL (7.6-11.0); Carbon Dioxide 23.8 mmol/L (21.0-32.0); Chloride 102 mmol/L (98-108); EST Glomerular Filtration Rate 47 (>60); Estimated Creatinine Clearance 38.53 ml/min (50-250); Glucose 118 mg/dL (70-99); Sodium Level 138 mmol/L (133-145)
[2024-11-26 08:07] VITALS: O2SAT 93
[2024-11-26 08:15] VITALS: BP 135/54; PULSE 74; RESP 12; TEMP 36.7; O2SAT 97
[2024-11-26] MEDS: Cephalexin 500 MG Capsule PO ×2 (08:56→23:41)
[2024-11-26] MEDS: DULoxetine Hcl 30 MG Capsule PO (08:56)
[2024-11-26] MEDS: Aspirin 81 MG TAB.CHEW PO (08:56)
[2024-11-26] MEDS: Insulin Glargine-YFGN 100 UNIT/ML Pen 15 UNIT SC (08:57)
[2024-11-26] MEDS: Carvedilol 6.25 MG Tablet PO ×2 (08:57→17:23)
[2024-11-26] MEDS: Pantoprazole Sodium 40 MG Tablet PO (08:57)
[2024-11-26] MEDS: Isosorbide Mononitrate 30 MG Tablet PO (08:57)
[2024-11-26] MEDS: Gabapentin 300 MG Capsule PO (08:57)
[2024-11-26 09:25] VITALS: BP 135/54; PULSE 74; RESP 12; TEMP 36.7; O2SAT 97
--- NOTE | 2024-11-26 09:33 | CASEMGMT ---
HEMANT met with patient to see if he and his made any decisions. Patient said his marked their preferences. Their choices are [facility], [facility], [facility], and [facility]. HEMANT asked Patsy to please send a referral to [facility]. Linette KAPOOR
--- NOTE | 2024-11-26 09:43 | CASEMGMT ---
Discharge Planning Referral sent to [facility]. Patsy Riley DC Planning Asst.
--- NOTE | 2024-11-26 09:49 | ECHOL_ITS ---
Reason For Study Reason For Study: CAD/ASHD Procedure This was a limited 2D transthoracic echocardiogram. Exam performed portable in patient room. Left Ventricle Normal LV size. The left ventricular ejection fraction is 40 %. There is mild to moderate global hypokinesis of the left ventricle. Right Ventricle Normal RV size. Normal systolic function. Atria The left atrium is mildly enlarged. Normal right atrium. Mitral Valve Moderate focal mitral valve calcification, bileaflet. Mild-Moderate (1-2+) eccentric mitral valve insufficiency. Tricuspid Valve Normal tricuspid valve. Mild (1+) tricuspid valve insufficiency. Pulmonary artery systolic pressure is 44 mmHg. Aortic Valve Trisinus/trileaflet aortic valve. Mild focal aortic valve calcification. Pulmonic Valve Normal pulmonic valve. Mild (1+) pulmonic valve insufficiency. Great Vessels Normal aortic root. The pulmonary artery is normal size. Inferior vena cava collapse with respiration. Pericardium/Pleural No pericardial effusion. MMode/2D Measurements & Calculations LVIDd: 4.3 cm IVSd: 1.0 cm LVAd ap4: 32.2 cm2 LVIDs: 3.3 cm LVPWd: 1.0 cm LVLd ap4: 8.1 cm FS: 22.8 % EDV(MOD-sp4): 103.9 ml EDV(sp4-el): 108.6 ml LVAs ap4: 22.6 cm2 LVLs ap4: 7.0 cm ESV(MOD-sp4): 61.7 ml ESV(sp4-el): 62.3 ml EF(MOD-sp4): 40.6 % EF(sp4-el): 42.6 % LVAd ap2: 25.4 cm2 SV(MOD-sp4): 42.2 ml SV(MOD-sp2): 27.5 ml LVLd ap2: 7.7 cm SI(MOD-sp4): 24.7 ml/m2 SI(MOD-sp2): 16.1 ml/m2 EDV(MOD-sp2): 68.6 ml EDV(sp2-el): 71.1 ml LVAs ap2: 18.3 cm2 LVLs ap2: 6.9 cm ESV(MOD-sp2): 41.1 ml ESV(sp2-el): 41.3 ml EF(MOD-sp2): 40.1 % SV(sp4-el): 46.3 ml Doppler Measurements & Calculations TR max jesse: 319.5 cm/sec TR max P.8 mmHg ECHO/Echo, Limited Study Interpretation Summary Normal LV size. The left ventricular ejection fraction is 40 %. There is mild to moderate global hypokinesis of the left ventricle. The left atrium is mildly enlarged. Mild-Moderate (1-2+) eccentric mitral valve insufficiency. Pulmonary artery systolic pressure is 44 mmHg. Ordering Physician: Miguel Angel Montez Referring Physician: MAGDIEL JOYCE Performed By: Bia Sam RDCS
--- NOTE | 2024-11-26 10:26 | CASEMGMT ---
[facility] has accepted and will submit for precert. Patsy Riley DC Planning Asst.
--- NOTE | 2024-11-26 12:02 | CASEMGMT ---
[facility] accepted patient and they will start pre-cert. HEMANT notified patient of this information. Patient was in agreement. Linette KAPOOR
[2024-11-26 12:04] LABS: Bedside Glucose 108 mg/dL (74-106)
--- NOTE | 2024-11-26 12:19 | PCM.PN.REN ---
Subjective Subjective no new events Objective Data Objective Data Vital Signs: Vital Signs Temp Pulse Resp BP Pulse Ox O2 Del Method 98.0 F 74 12 135/54 H 97 Room Air 11/26/24 09:25 11/26/24 09:25 11/26/24 09:25 11/26/24 09:25 11/26/24 09:25 11/26/24 09:25 Oxygen Delivery Method Room Air Weight: 60.8 kg Body Mass Index (BMI) 20.9 Intake & Output: Intake and Output for Last 24 Hours 11/24/24 11/25/24 11/26/24 23:59 23:59 23:59 Intake Total 2550 / 2550 4185 / 4185 1690 / 1690 Output Total 3250 / 3250 1625 / 1625 Balance 2550 / 2550 935 / 935 65 / 65 Lab / Micro Data 11/25/24 07:43 11/26/24 06:14 Labs: Laboratory Results - last 24 hr 11/25/24 12:07: POC Glucose 149 H 11/25/24 17:16: POC Glucose 118 H 11/25/24 21:28: POC Glucose 215 H 11/25/24 23:20: POC Glucose 122 H 11/26/24 06:14: Sodium 138, Potassium 3.0 L, Chloride 102, Carbon Dioxide 23.8, Anion Gap 12, BUN 60 H, Creatinine 1.60 H, Estim Creat Clear Calc 38.53 L, Est GFR (MDRD) Non-Af 47 L, BUN/Creatinine Ratio 37.7 H, Glucose 118 H, Calcium 8.3 11/26/24 06:20: POC Glucose 133 H 11/26/24 11:45: POC Glucose 108 H Micro: Microbiology 11/24/24 22:57 Urine Catheter - Robb Urine Culture - Preliminary Presumptive C albicans 11/24/24 20:32 Stool Stool Lactoferrin - Final 11/24/24 20:32 Stool Enteric Bacteriology - Final 11/24/24 20:32 Stool Clostridioides difficile (PCR) - Final Physical Exam Narrative Alert and oriented x 3, no apparent distress S1, S2, RRR Abdomen soft, nontender, ostomy No edema Robb with clear yellow urine in bag Assessment & Plan Assessment/Plan (1) MADELEINE (acute kidney injury): (2) Nausea & vomiting: PLAN: Plan 69-year-old male presented emergency room with complaints of nausea and vomiting, weakness, admitted for severe MADELEINE and acute pancreatitis (lipase 1112 on admission, noncontrast CT abdomen/pelvis no evidence of pancreatitis). Nonoliguric MADELEINE with normal baseline creatinine likely from significant GI losses, volume depletion with concurrent diuretic use. Blood pressures slightly low on admission to ER. Blood pressures have improved. Patient was given IV fluids in ER and also on maintenance IV fluids. CT abd no hydronephrosis urine output ok cr is better
[2024-11-26 14:05] VITALS: BP 141/71; PULSE 77; RESP 12; TEMP 36.6; O2SAT 98
[2024-11-26 15:02] LABS: Bedside Glucose 55 mg/dL (74-106)
[2024-11-26 15:02] LABS: Bedside Glucose 59 mg/dL (74-106)
--- NOTE | 2024-11-26 16:21 | PN.HOSP_ITS ---
Reason for Visit Reason for Visit: Diagnoses Acute pancreatitis without necrosis or infection, unspecified (11/24/24) Acute kidney failure, unspecified (11/24/24) Unspecified kidney failure (11/24/24) Nausea with vomiting, unspecified (11/24/24) Subjective Subjective Patient was seen and examined today, his family members were in the room during the time my examination. Patient's creatinine was improved today I decided to stop the patient's fluid administration due to his cardiomyopathy. Limited echocardiogram was performed today which showed a an EF of 40% which is in line with his last echocardiogram. Patient remains on room air and does not appear short of breath. Patient's family would like the patient to go to a half-way facility for short-term rehab services and case management is involved with this planning. Objective Data Objective Data Vital Signs: Vital Signs Temp Pulse Resp BP Pulse Ox O2 Del Method 97.9 F 77 12 141/71 H 98 Room Air 11/26/24 14:05 11/26/24 14:05 11/26/24 14:05 11/26/24 14:05 11/26/24 14:05 11/26/24 14:05 Oxygen Delivery Method Room Air Weight: 60.8 kg Body Mass Index (BMI) 20.9 Intake & Output: Intake and Output for Last 24 Hours 11/24/24 11/25/24 11/26/24 23:59 23:59 23:59 Intake Total 2550 / 2550 4185 / 4185 1690 / 1690 Output Total 3250 / 3250 1850 / 1850 Balance 2550 / 2550 935 / 935 -160 / -160 Lab / Micro Data 11/25/24 07:43 11/26/24 06:14 Labs: Laboratory Results - last 24 hr 11/25/24 17:16: POC Glucose 118 H 11/25/24 21:28: POC Glucose 215 H 11/25/24 23:20: POC Glucose 122 H 11/26/24 05:41: POC Glucose 59 L 11/26/24 05:56: POC Glucose 55 L 11/26/24 06:14: Sodium 138, Potassium 3.0 L, Chloride 102, Carbon Dioxide 23.8, Anion Gap 12, BUN 60 H, Creatinine 1.60 H, Estim Creat Clear Calc 38.53 L, Est GFR (MDRD) Non-Af 47 L, BUN/Creatinine Ratio 37.7 H, Glucose 118 H, Calcium 8.3 11/26/24 06:20: POC Glucose 133 H 11/26/24 11:45: POC Glucose 108 H Micro: Microbiology 11/24/24 22:57 Urine Catheter - Robb Urine Culture - Preliminary Presumptive C albicans 11/24/24 20:32 Stool Stool Lactoferrin - Final 11/24/24 20:32 Stool Enteric Bacteriology - Final 11/24/24 20:32 Stool Clostridioides difficile (PCR) - Final Radiography Diagnostic Testing: Radiology Impression Echocardiogram 11/26/24 09:49 Interpretation Summary Normal LV size. The left ventricular ejection fraction is 40 %. There is mild to moderate global hypokinesis of the left ventricle. The left atrium is mildly enlarged. Mild-Moderate (1-2+) eccentric mitral valve insufficiency. Pulmonary artery systolic pressure is 44 mmHg. Ordering Physician: Miguel Angel Montez Referring Physician: MAGDIEL JOYCE Performed By: Bia Sam RDCS Physical Exam Narrative alert, oriented x3 and no apparent distress Constitutional Narrative: Patient appears older than his stated age General Appearance: cooperative, well kempt and well developed Orientation / Consciousness: awake, oriented to person, oriented to place and oriented to time HEENT normocephalic and moist oral mucous membranes Eyes PERRL, EOMs intact bilaterally and conjunctivae normal Neck supple, no JVD, thyroid normal and no carotid bruits General: trachea midline Resp normal respiratory effort and clear to auscultation bilaterally Auscultation: Negative for rales, rhonchi or wheezes Cardio regular rate, regular rhythm, no murmurs, no rub and no gallops GI normal to inspection, nondistended, normoactive bowel sounds, soft to palpation, non-tender and non-distended GI Narrative: Patient has an ileostomy in place and a suprapubic catheter, there is a covered ostomy present over the patient's left mid abdomen. Extremity no clubbing, cyanosis or edema Skin no rashes or lesions noted General Skin Exam: no breakdown Neuro oriented x3, CN's II-XII intact bilaterally, no focal motor deficits and no sensory deficits noted Sensorium / Orientation: awake and alert Speech: speech normal Psych affect normal Assessment & Plan Assessment/Plan (1) MADELEINE (acute kidney injury): PLAN: Plan 1. Acute kidney injury-secondary to nausea and vomiting-nausea - vomiting is resolved at this time, labs will be monitored-BMP tomorrow #2 type 2 diabetes with an patient will remain on his present medication and blood sugars will be monitored he will receive sliding scale insulin #3 recent urinary tract infection with Klebsiella pneumoniae-the preliminary result on the patient's urine culture this admission shows Charlotte albicans. I have elected to keep the patient on oral antibiotics for now #4 cardiomyopathy-etiology unclear, patient's EF is 40%, he will need further workup as an outpatient regarding this, continue carvedilol, it may be possible to add an ILDA inhibitor to the patient's medication regimen, repeat BMP will be drawn tomorrow Total clinical time spent by myself addressing the patient's medical issues, reviewing all of his data, and collaborating with the patient's care team: 35 minutes Charges/Coding Visit Charges Inpatient E&M: 77030 Subs Hosp L2
[2024-11-26 17:00] LABS: Bedside Glucose 173 mg/dL (74-106)
[2024-11-26] MEDS: Insulin Lispro 100 UNIT/ML INSULN.PEN SC ×2 (17:22→23:43)
[2024-11-26 20:15] VITALS: BP 113/53; PULSE 82; RESP 16; TEMP 37.3; O2SAT 97
[2024-11-26] MEDS: 0.9% Saline Lock 10 ML Syringe IV (20:18)
[2024-11-26] MEDS: Atorvastatin Calcium 20 MG Tablet PO (23:41)
[2024-11-26] MEDS: Insulin Glargine-YFGN 100 UNIT/ML Pen 10 UNIT SC (23:42)
[2024-11-26] MEDS: MELATONIN 3 MG TABLET PO (23:42)
[2024-11-27 00:01] LABS: Bedside Glucose 194 mg/dL (74-106)
[2024-11-27 02:30] VITALS: BP 137/62; PULSE 75; RESP 14; TEMP 36.2; O2SAT 94
[2024-11-27] MEDS: Acetaminophen 325 MG Tablet 650 MG PO (02:36)
[2024-11-27 05:37] VITALS: BMI 21.4
[2024-11-27] MEDS: Heparin Injection (Vial) 5,000 UNIT/ML VIAL 5000 UNIT SC ×3 (06:33→20:41)
[2024-11-27] MEDS: Insulin Lispro 100 UNIT/ML INSULN.PEN SC ×4 (06:34→20:38)
[2024-11-27 06:35] VITALS: BP 138/73; PULSE 63; RESP 14; TEMP 36.1; O2SAT 96
[2024-11-27 06:56] LABS: Bedside Glucose 195 mg/dL (74-106)
[2024-11-27 07:09] LABS: Anion Gap 10 (5-15); BUN 36 mg/dL (4-19); BUN/Creat Ratio 28.8 RATIO (10-20); Calcium,Total 8.5 mg/dL (7.6-11.0); Carbon Dioxide 24.6 mmol/L (21.0-32.0); Chloride 103 mmol/L (98-108); Creatinine, Serum 1.26 mg/dL (0.70-1.20); EST Glomerular Filtration Rate 63 (>60); Estimated Creatinine Clearance 50.05 ml/min (50-250); Glucose 190 mg/dL (70-99); Potassium 3.9 mmol/L (3.3-5.1); Sodium Level 138 mmol/L (133-145)
[2024-11-27] MEDS: Aspirin 81 MG TAB.CHEW PO (08:52)
[2024-11-27] MEDS: Carvedilol 6.25 MG Tablet PO ×2 (08:52→17:24)
[2024-11-27] MEDS: Insulin Glargine-YFGN 100 UNIT/ML Pen 10 UNIT SC ×2 (09:00→20:39)
[2024-11-27] MEDS: Gabapentin 300 MG Capsule PO (09:01)
[2024-11-27] MEDS: DULoxetine Hcl 30 MG Capsule PO (09:01)
[2024-11-27] MEDS: Isosorbide Mononitrate 30 MG Tablet PO (09:01)
[2024-11-27] MEDS: Cephalexin 500 MG Capsule PO ×2 (09:01→20:37)
[2024-11-27] MEDS: Pantoprazole Sodium 40 MG Tablet PO (09:01)
[2024-11-27] MEDS: Lisinopril 10 MG Tablet PO (09:04)
[2024-11-27 11:42] LABS: Bedside Glucose 203 mg/dL (74-106)
--- NOTE | 2024-11-27 11:55 | PCM.PN.REN ---
Subjective Subjective Resting in bed. No overnight events. Objective Data Objective Data Vital Signs: Vital Signs Temp Pulse Resp BP Pulse Ox O2 Del Method 97.0 F L 63 14 138/73 H 96 Room Air 11/27/24 06:35 11/27/24 06:35 11/27/24 06:35 11/27/24 06:35 11/27/24 06:35 11/27/24 06:35 Oxygen Delivery Method Room Air Weight: 62.2 kg Body Mass Index (BMI) 21.4 Intake & Output: Intake and Output for Last 24 Hours 11/25/24 11/26/24 11/27/24 23:59 23:59 23:59 Intake Total 4185 / 4185 1930 / 1930 100 / 100 Output Total 3250 / 3250 2950 / 2950 1150 / 1150 Balance 935 / 935 -1020 / -1020 -1050 / -1050 Lab / Micro Data 11/25/24 07:43 11/27/24 06:32 Labs: Laboratory Results - last 24 hr 11/26/24 05:41: POC Glucose 59 L 11/26/24 05:56: POC Glucose 55 L 11/26/24 11:45: POC Glucose 108 H 11/26/24 16:42: POC Glucose 173 H 11/26/24 23:40: POC Glucose 194 H 11/27/24 06:31: POC Glucose 195 H 11/27/24 06:32: Sodium 138, Potassium 3.9, Chloride 103, Carbon Dioxide 24.6, Anion Gap 10, BUN 36 H, Creatinine 1.26 H, Estim Creat Clear Calc 50.05, Est GFR (MDRD) Non-Af 63, BUN/Creatinine Ratio 28.8 H, Glucose 190 H, Calcium 8.5 11/27/24 11:24: POC Glucose 203 H Micro: Microbiology 11/24/24 22:57 Urine Catheter - Robb Urine Culture - Final Presumptive C albicans 11/24/24 20:32 Stool Stool Lactoferrin - Final 11/24/24 20:32 Stool Enteric Bacteriology - Final 11/24/24 20:32 Stool Clostridioides difficile (PCR) - Final Radiography Diagnostic Testing: Radiology Impression Echocardiogram 11/26/24 09:49 Interpretation Summary Normal LV size. The left ventricular ejection fraction is 40 %. There is mild to moderate global hypokinesis of the left ventricle. The left atrium is mildly enlarged. Mild-Moderate (1-2+) eccentric mitral valve insufficiency. Pulmonary artery systolic pressure is 44 mmHg. Ordering Physician: Miguel Angel Montez Referring Physician: MAGDIEL JOYCE Performed By: Bia Sam RDCS Physical Exam Narrative Alert and oriented x 3, no apparent distress S1, S2, RRR Abdomen soft, nontender, ostomy No edema Robb with clear yellow urine in bag Assessment & Plan Assessment/Plan (1) MADELEINE (acute kidney injury): (2) Nausea & vomiting: PLAN: Plan 69-year-old male presented emergency room with complaints of nausea and vomiting, weakness, admitted for severe MADELEINE and acute pancreatitis (lipase 1112 on admission, noncontrast CT abdomen/pelvis no evidence of pancreatitis). Nonoliguric MADELEINE with normal baseline creatinine likely from significant GI losses, volume depletion with concurrent diuretic use. SCr 4.42 on admission. Blood pressures slightly low on admission to ER. Blood pressures have improved. Patient was given IV fluids in ER and also on maintenance IV fluids. CT abd no hydronephrosis. Good urine output. SCr 1.26 today. K+and bicarb normal. Baseline SCr <1mg/dL. Off lasix, volume status appears compensated. Assessment and plan reviewed with Dr. Arnett. Discharge planning in progress, possibly ECF for therapy. Discussed nephrology plan with Dr. Montez.
[2024-11-27 17:47] LABS: Bedside Glucose 312 mg/dL (74-106)
--- NOTE | 2024-11-27 18:45 | PCM.PN.HOSP ---
Reason for Visit Reason for Visit: Diagnoses Acute pancreatitis without necrosis or infection, unspecified (11/24/24) Acute kidney failure, unspecified (11/24/24) Unspecified kidney failure (11/24/24) Nausea with vomiting, unspecified (11/24/24) Subjective Subjective Patient was seen and examined today, he has creatinine is improved, I have elected to place him on an ILDA inhibitor due to his cardiomyopathy. Echo yesterday showed an ejection fraction of 40%. Objective Data Objective Data Vital Signs: Vital Signs Temp Pulse Resp BP Pulse Ox O2 Del Method 97.0 F L 63 14 138/73 H 96 Room Air 11/27/24 06:35 11/27/24 06:35 11/27/24 06:35 11/27/24 06:35 11/27/24 06:35 11/27/24 06:35 Oxygen Delivery Method Room Air Weight: 62.2 kg Body Mass Index (BMI) 21.4 Intake & Output: Intake and Output for Last 24 Hours 11/25/24 11/26/24 11/27/24 23:59 23:59 23:59 Intake Total 4185 / 4185 1930 / 1930 100 / 100 Output Total 3250 / 3250 2950 / 2950 2100 / 2100 Balance 935 / 935 -1020 / -1020 -1999 / -1999 Lab / Micro Data 11/25/24 07:43 11/27/24 06:32 Labs: Laboratory Results - last 24 hr 11/26/24 23:40: POC Glucose 194 H 11/27/24 06:31: POC Glucose 195 H 11/27/24 06:32: Sodium 138, Potassium 3.9, Chloride 103, Carbon Dioxide 24.6, Anion Gap 10, BUN 36 H, Creatinine 1.26 H, Estim Creat Clear Calc 50.05, Est GFR (MDRD) Non-Af 63, BUN/Creatinine Ratio 28.8 H, Glucose 190 H, Calcium 8.5 11/27/24 11:24: POC Glucose 203 H 11/27/24 17:22: POC Glucose 312 H Micro: Microbiology 11/24/24 22:57 Urine Catheter - Robb Urine Culture - Final Presumptive C albicans 11/24/24 20:32 Stool Stool Lactoferrin - Final 11/24/24 20:32 Stool Enteric Bacteriology - Final 11/24/24 20:32 Stool Clostridioides difficile (PCR) - Final Physical Exam Narrative alert, oriented x3 and no apparent distress Constitutional Narrative: Patient appears older than his stated age General Appearance: cooperative, well kempt and well developed Orientation / Consciousness: awake, oriented to person, oriented to place and oriented to time HEENT normocephalic and moist oral mucous membranes Eyes PERRL, EOMs intact bilaterally and conjunctivae normal Neck supple, no JVD, thyroid normal and no carotid bruits General: trachea midline Resp normal respiratory effort and clear to auscultation bilaterally Auscultation: Negative for rales, rhonchi or wheezes Cardio regular rate, regular rhythm, no murmurs, no rub and no gallops GI normal to inspection, nondistended, normoactive bowel sounds, soft to palpation, non-tender and non-distended GI Narrative: Patient has an ileostomy in place and a suprapubic catheter, there is a covered ostomy present over the patient's left mid abdomen. Extremity no clubbing, cyanosis or edema Skin no rashes or lesions noted General Skin Exam: no breakdown Neuro oriented x3, CN's II-XII intact bilaterally, no focal motor deficits and no sensory deficits noted Sensorium / Orientation: awake and alert Speech: speech normal Psych affect normal Assessment & Plan Assessment/Plan (1) MADELEINE (acute kidney injury): PLAN: Plan 1. Acute kidney injury-secondary to nausea and vomiting-nausea - vomiting is resolved at this time, labs will be monitored as necessary #2 type 2 diabetes with an patient will remain on his present medication and blood sugars will be monitored he will receive sliding scale insulin #3 recent urinary tract infection with Klebsiella pneumoniae-the preliminary result on the patient's urine culture this admission shows Charlotte albicans. I have elected to keep the patient on oral antibiotics for now #4 cardiomyopathy-etiology unclear, patient's EF is 40%, he will need further workup as an outpatient regarding this, continue carvedilol, I made the decision to place the patient on lisinopril today, his BMP will be monitored Total clinical time spent by myself addressing the patient's medical issues, reviewing all of his data, and collaborating with the patient's care team: 35 minutes Charges/Coding Visit Charges Inpatient E&M: 62788 Subs Hosp L2
[2024-11-27 20:28] VITALS: BP 128/60; PULSE 69; RESP 18; TEMP 36.9; O2SAT 99
[2024-11-27] MEDS: MELATONIN 3 MG TABLET PO (20:37)
[2024-11-27] MEDS: Atorvastatin Calcium 20 MG Tablet PO (20:37)
[2024-11-27 21:22] LABS: Bedside Glucose 365 mg/dL (74-106)
[2024-11-28 03:15] VITALS: BMI 21.4
[2024-11-28 04:57] VITALS: BP 149/73; PULSE 65; RESP 18; TEMP 36.6; O2SAT 100
[2024-11-28] MEDS: Acetaminophen 325 MG Tablet 650 MG PO (05:04)
[2024-11-28] MEDS: Heparin Injection (Vial) 5,000 UNIT/ML VIAL 5000 UNIT SC (05:05)
[2024-11-28 05:15] LABS: Anion Gap 11 (5-15); BUN 39 mg/dL (4-19); BUN/Creat Ratio 21.2 RATIO (10-20); Calcium,Total 8.8 mg/dL (7.6-11.0); Carbon Dioxide 21.9 mmol/L (21.0-32.0); Chloride 102 mmol/L (98-108); Creatinine, Serum 1.84 mg/dL (0.70-1.20); EST Glomerular Filtration Rate 40 (>60); Estimated Creatinine Clearance 34.33 ml/min (50-250); Glucose 201 mg/dL (70-99); Potassium 4.3 mmol/L (3.3-5.1); Sodium Level 134 mmol/L (133-145)
[2024-11-28] MEDS: Insulin Lispro 100 UNIT/ML INSULN.PEN SC ×2 (06:34→11:33)
[2024-11-28 06:53] LABS: Bedside Glucose 208 mg/dL (74-106)
--- NOTE | 2024-11-28 08:18 | CASEMGMT ---
[facility] [place] has obtained auth to admit. Patsy Riley DC Planning Asst.
--- NOTE | 2024-11-28 09:18 | WOUNDNOTE ---
In to assess the ostomy appliance. appliance emptied for approx 500cc's liquid stool. appliance intact. nursing states the appliance was changed early this am d/t leaking. pt states appliance got too full and leaked. will monitor.
[2024-11-28 09:50] VITALS: BP 122/60; PULSE 71; RESP 17; TEMP 36.6; O2SAT 99
[2024-11-28] MEDS: DULoxetine Hcl 30 MG Capsule PO (09:50)
[2024-11-28] MEDS: Gabapentin 300 MG Capsule PO (09:50)
[2024-11-28] MEDS: Lisinopril 10 MG Tablet PO (09:51)
[2024-11-28] MEDS: Isosorbide Mononitrate 30 MG Tablet PO (09:51)
[2024-11-28] MEDS: Carvedilol 6.25 MG Tablet PO (09:51)
[2024-11-28] MEDS: Aspirin 81 MG TAB.CHEW PO (09:51)
[2024-11-28] MEDS: Pantoprazole Sodium 40 MG Tablet PO (09:51)
[2024-11-28] MEDS: Insulin Glargine-YFGN 100 UNIT/ML Pen 10 UNIT SC (09:53)
--- NOTE | 2024-11-28 11:28 | CASEMGMT ---
Addendum entered by Linette Larose 11/28/24 13:55: HEMANT completed a 7000 in [facility] system. Plan: d/c to [facility] under skilled level of care on a convalescent stay. Physicians will transport patient via wheelchair van. Linette KAPOOR Original Note: HEMANT notified patient that his insurance has approved him to go to [facility] and he will go today. Patient thanked HEMANT for letting him know. Linette KAPOOR
[2024-11-28 11:53] LABS: Bedside Glucose 253 mg/dL (74-106)
--- NOTE | 2024-11-28 12:32 | TREXTCAR_ITS ---
Diet Diet Order/Speech Therapy: 11/26/24 09:12 Diet: Cardiac - Heart Healthy No added sugar Routine Orders/Code Status Routine Lab Work: BMP (On 12/02/2024-send results to Dr. Arnett's office) and - (Fingerstick blood sugars AC nightly, sliding scale Humalog subcu per result: 200-250: 5 units, 251-300: 8 units, 301-350: 12 units) Code Status: DNRCC-A (No intubation) DC O2, CPAP, BIPAP needs Home O2 Discharge instructions: No Wound(s) coccyx: Wound Type: healing ulcer left lower abdomen: Wound Type: old stoma Therapies Weight Bearing: Full weight bearing Physical Therapy: Eval and Treat Occupational Therapy: Eval and Treat Problem/Diagnosis (1) MADELEINE (acute kidney injury): Status: Acute Code(s): N17.9 - Acute kidney failure, unspecified Plan 1. Acute kidney injury-secondary to nausea and vomiting-nausea - vomiting is resolved at this time, labs will be monitored as necessary #2 type 2 diabetes with an patient will remain on his present medication and blood sugars will be monitored he will receive sliding scale insulin #3 recent urinary tract infection with Klebsiella pneumoniae-the preliminary result on the patient's urine culture this admission shows Charlotte albicans. I have elected to keep the patient on oral antibiotics for now #4 cardiomyopathy-etiology unclear, patient's EF is 40%, he will need further workup as an outpatient regarding this, continue carvedilol, I made the decision to place the patient on lisinopril today, his BMP will be monitored Total clinical time spent by myself addressing the patient's medical issues, reviewing all of his data, and collaborating with the patient's care team: 35 minutes Allergies/Procedures Done in Hospital Allergies No Known Allergies Allergy (Verified 11/24/24 19:19) Type of Care/Length of Stay Estimated LOS: Convalescent Care Less Than 30 days Type of Care Needed: Skilled Rehab Potential: Good Prognosis: Good Additional Orders/Day of Discharge Day of Discharge: 11/28/24 Dietary and Speech Recommendations Dietitian Recommendations/Changes: Recommend advanced diet as tolerated to consistent carbohydrate with phosphorus restriction. If phosphorus labs improve to wnl, will discontinue phosphorus diet restriction. As diet is advanced, will order 240ml chocolate CIB with dinner. Will reassess for malnutrition, at time of follow up. Will monitor weight trends. Discharge Plan Admission Admit Date/Time: 11/24/24 22:33 Primary Reason for Your Visit: Acute kidney injury Attending Provider: Miguel Angel Montez Primary Care Provider: Kedny Modi Consulting Providers: Cy Arnett; Claudio Devlin Discharge Orders/Prescriptions Prescriptions: New insulin glargine-yfgn 100 unit/mL (3 mL) Insulin Pen 15 unit subcut BID Qty: 0 0RF lisinopril 10 mg Tablet 10 mg PO DAILY Qty: 0 0RF Continued atorvastatin 20 mg tablet 20 mg PO QDAY duloxetine 30 mg capsule,delayed release(DR/EC) 30 mg PO QDAY isosorbide mononitrate 30 mg tablet extended release 24 hr 30 mg PO DAILY 30 Days Qty: 30 11RF aspirin 81 MG tablet,chewable 81 mg PO DAILY melatonin 3 mg tablet 3 mg PO QHS Tums 300 mg (750 mg) tablet,chewable 300 mg PO TID PRN (Reason: dyspepsia) Baldwin Saline 0.65 % aerosol,spray 2 spray intranasal Q4H PRN (Reason: dry nasal passages) Rx Instructions: while awake carvedilol 6.25 mg Tablet 6.25 mg PO BID Qty: 0 0RF gabapentin 300 mg capsule 300 mg PO DAILY Patient Comments: Has been out X 1 week pantoprazole 40 mg tablet,delayed release (DR/EC) 40 mg PO DAILY acetaminophen 325 mg capsule 650 mg PO Q6H PRN (Reason: pain) clopidogrel 75 mg tablet 75 mg PO DAILY Qty: 90 3RF Discontinued insulin glargine-yfgn [Semglee(insulin glarg-yfgn)Pen] 100 unit/mL (3 mL) insulin pen 45 unit subcut BID hydralazine 10 mg tablet 10 mg PO 4X/DAY 30 Days Qty: 120 11RF furosemide 40 mg tablet 40 mg PO BIDLX 30 Days Qty: 60 11RF insulin lispro [Humalog KwikPen Insulin] 100 unit/mL insulin pen 1 sliding scale dose SC TIDCM Protocol: 6. Sliding Scale Insulin Custom Condition: mg/dl range Dose/Route: Number of Units Condition: 0-200 Dose/Route: 0 Condition: 201-250 Dose/Route: 2 Condition: 251-300 Dose/Route: 4 Condition: 301-350 Dose/Route: 6 Condition: 351-400 Dose/Route: 8 Condition: 401-450 Dose/Route: 10 Condition: 451-500 Dose/Route: 12 Condition: 500+ Dose/Route: 14 Condition: 501+ Dose/Route: CALL MD Protocol Text: INJECT 4 UNITS SUBCUTANEOUSLY ALONG WITH SLIDING SCALE THREE TIMES A DAY AT 0730, 1130, AND 1630 metformin 500 mg tablet extended release 24 hr 500 mg PO BID Referrals / Follow Up: Kendy Modi MD [Primary Care Provider] - Cy Arnett MD [Med Staff - Consulting] - See Referral Note (Patient will need to be seen next week, call office to confirm appointment) Etienne Darden MD [Med Staff - Active Staff] - See Referral Note (Confirm an appointment in December 2024 for follow-up) Disposition Disposition (needs filled in before D/C Order can be placed): [facility]
--- NOTE | 2024-11-28 13:00 | PCM.DC.SUM ---
Providers Date of Admission: 11/24/24 Date of Discharge: 11/28/24 Primary Care Physician: Dr. 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 Acute kidney injury-secondary to nausea and vomiting-nausea - vomiting is resolved at this time, labs will be monitored as necessary #2 type 2 diabetes with an patient will remain on his present medication and blood sugars will be monitored he will receive sliding scale insulin #3 recent urinary tract infection with Klebsiella pneumoniae-the preliminary result on the patient's urine culture this admission shows [place] albicans. I have elected to keep the patient on oral antibiotics for now #4 cardiomyopathy-etiology unclear, patient's EF is 40%, he will need further workup as an outpatient regarding this, continue carvedilol, I made the decision to place the patient on lisinopril today, his BMP will be monitored #5 hypokalemia #6 hyponatremia Total clinical time spent by myself addressing the patient's medical issues, reviewing all of his data, and collaborating with the patient's care team: 35 minutes Medications at Discharge Home Medications aspirin 81 mg chewable tablet 81 mg PO DAILY heart health 03/20/16 clopidogrel 75 mg tablet 75 mg PO DAILY blood thinner #90 tabs 10/10/23 pantoprazole 40 mg tablet,delayed release 40 mg PO DAILY GERD 12/01/23 calcium carbonate (Tums) 300 mg PO TID PRN dyspepsia 01/31/24 melatonin 3 mg tablet 3 mg PO QHS sleep 01/31/24 sodium chloride 0.65 % nasal spray aerosol (Cato Saline) 2 spray intranasal Q4H PRN dry nasal passages 01/31/24 carvedilol 6.25 mg tablet 6.25 mg PO BID blood pressure #0 tabs 07/05/24 acetaminophen 325 mg capsule 650 mg PO Q6H PRN pain 05/21/24 atorvastatin 20 mg tablet 20 mg PO QDAY cholesterol 05/21/24 gabapentin 300 mg capsule 300 mg PO DAILY nerve pain 08/25/24 duloxetine 30 mg capsule,delayed release 30 mg PO QDAY 10/30/24 isosorbide mononitrate 30 mg tablet,extended release 24 hr 30 mg PO DAILY 30 days #30 tabs 10/30/24 insulin glargine-yfgn 100 unit/mL (3 mL) subcutaneous pen 15 unit (0.15 mL) subcut BID #0 mL 11/28/24 lisinopril 10 mg tablet 10 mg PO DAILY #0 tabs 11/28/24 Hospital Course Operations None Procedures 2-D Echocardiogram Summary of Care Provided Minutes Spent on Discharge: 32 Hospital Course: This 69-year-old white male was seen in the emergency room at [facility] with complaints of nausea and vomiting and weakness. Patient stated he also felt dehydrated. Patient saw his PCP a few days ago and was placed on antibiotics for UTI. Labs obtained showed an elevated creatinine BUN and he was told by his PCP to come to the ER if his symptoms worsened. Labs in the ER was notable for a sodium of 128, potassium of 3.1, creatinine of 4.42, BUN of 143, and lipase of 1112. CT of the abdomen and pelvis without contrast showed a normal pancreas, there was cholelithiasis without evidence of cholecystitis, there is a distended stomach. Patient was admitted to PCU, he was given IV fluids and seen in consultation by nephrology for MADELEINE. Patient's creatinine improved during his hospitalization, he underwent an echocardiogram to recheck his ejection fraction which had been low at his last hospitalization in October 2024. EF was still low at 40%. Patient was seen by PT and OT, patient elected [facility] a [facility] for inpatient rehab services due to weakness and deconditioning. On 11/28/24, patient was seen and examined: On examination he appeared in good health and spirits. Vital signs as documented. Skin warm and dry and without overt rashes. Neck without JVD, neck was supple, trachea midline, thyroid was normal. Lungs clear bilaterally, normal air movement was noted. Heart exam notable for regular rhythm, normal sounds and absence of murmurs, rubs or gallops. Abdomen unremarkable and without evidence of organomegaly, masses, or abdominal aortic enlargement. Bowel sounds are present, abdomen is not distended. Extremities nonedematous, no cyanosis was noted, no clubbing was noted. Neuro: Cranial nerves II through XII are grossly intact, no focal motor deficits were noted, sensation to light touch and pinprick intact, motor exam 5/5 throughout. Psych: Patient is alert and oriented x3, he does not appear anxious or depressed, he does not appear agitated. Patient was [facility] a jail facility for further inpatient rehab services on 11/28/2024, he was to follow-up with nephrology as an outpatient in a week and he has BMP will be rechecked next week. Patient was kept off diuretics due to concerns with kidney function. Weight / BMI Weight Weight: 62.3 kg Body Mass Index (BMI) 21.4 ABG / Lab / Microbiology Data 11/25/24 07:43 11/28/24 04:23 Laboratory: Laboratory Results - last 24 hr 11/27/24 17:22: POC Glucose 312 H 11/27/24 20:30: POC Glucose 365 H 11/28/24 04:23: Sodium 134, Potassium 4.3, Chloride 102, Carbon Dioxide 21.9, Anion Gap 11, BUN 39 H, Creatinine 1.84 H, Estim Creat Clear Calc 34.33 L, Est GFR (MDRD) Non-Af 40 L, BUN/Creatinine Ratio 21.2 H, Glucose 201 H, Calcium 8.8 11/28/24 06:28: POC Glucose 208 H 11/28/24 11:31: POC Glucose 253 H Microbiology: Microbiology 11/24/24 20:32 Stool Ova and Parasites - Final 11/24/24 22:57 Urine Catheter - Robb Urine Culture - Final Presumptive C albicans 11/24/24 20:32 Stool Stool Lactoferrin - Final 11/24/24 20:32 Stool Enteric Bacteriology - Final 11/24/24 20:32 Stool Clostridioides difficile (PCR) - Final D/C Instructions DC O2, CPAP, BIPAP Needs Home O2 Discharge instructions: No Meaningful Use Info Meaningful Use Meaningful Use Diagnoses (Choose all that apply): None applicable Ischemic Stroke Statin Dosing Therapy Reference: STATIN DOSE THERAPY REFERENCE: * Patients > 75 years receive moderate or high dose statin therapy. * Patients 75 years or YOUNGER should receive HIGH intensity statin dose unless contraindicated. You will be required to document reason for non-treatment if statin daily dose does not meet guidelines. HIGH DOSE STATIN THERAPY DAILY Atorvastatin > than or = to 40 mg Rosuvastatin > than or = to 20 mg Amlodipine + Atorvastatin > than or = to 2.5/40 mg Ezetimibe + Simvastatin 10/80 mg Simvastatin 80mg Discharge Plan Admission Admit Date/Time: 11/24/24 22:33 Primary Reason for Your Visit: Acute kidney injury Attending Provider: Miguel Angel Montez Primary Care Provider: Kendy Modi Consulting Providers: Cy Arnett; Claudio Devlin Discharge Orders/Prescriptions Prescriptions: New insulin glargine-yfgn 100 unit/mL (3 mL) Insulin Pen 15 unit subcut BID Qty: 0 0RF lisinopril 10 mg Tablet 10 mg PO DAILY Qty: 0 0RF Continued atorvastatin 20 mg tablet 20 mg PO QDAY duloxetine 30 mg capsule,delayed release(DR/EC) 30 mg PO QDAY isosorbide mononitrate 30 mg tablet extended release 24 hr 30 mg PO DAILY 30 Days Qty: 30 11RF aspirin 81 MG tablet,chewable 81 mg PO DAILY melatonin 3 mg tablet 3 mg PO QHS Tums 300 mg (750 mg) tablet,chewable 300 mg PO TID PRN (Reason: dyspepsia) Cato Saline 0.65 % aerosol,spray 2 spray intranasal Q4H PRN (Reason: dry nasal passages) Rx Instructions: while awake carvedilol 6.25 mg Tablet 6.25 mg PO BID Qty: 0 0RF gabapentin 300 mg capsule 300 mg PO DAILY Patient Comments: Has been out X 1 week pantoprazole 40 mg tablet,delayed release (DR/EC) 40 mg PO DAILY acetaminophen 325 mg capsule 650 mg PO Q6H PRN (Reason: pain) clopidogrel 75 mg tablet 75 mg PO DAILY Qty: 90 3RF Discontinued insulin glargine-yfgn [Semglee(insulin glarg-yfgn)Pen] 100 unit/mL (3 mL) insulin pen 45 unit subcut BID hydralazine 10 mg tablet 10 mg PO 4X/DAY 30 Days Qty: 120 11RF furosemide 40 mg tablet 40 mg PO BIDLX 30 Days Qty: 60 11RF insulin lispro [Humalog KwikPen Insulin] 100 unit/mL insulin pen 1 sliding scale dose SC TIDCM Protocol: 6. Sliding Scale Insulin Custom Condition: mg/dl range Dose/Route: Number of Units Condition: 0-200 Dose/Route: 0 Condition: 201-250 Dose/Route: 2 Condition: 251-300 Dose/Route: 4 Condition: 301-350 Dose/Route: 6 Condition: 351-400 Dose/Route: 8 Condition: 401-450 Dose/Route: 10 Condition: 451-500 Dose/Route: 12 Condition: 500+ Dose/Route: 14 Condition: 501+ Dose/Route: CALL MD Protocol Text: INJECT 4 UNITS SUBCUTANEOUSLY ALONG WITH SLIDING SCALE THREE TIMES A DAY AT 0730, 1130, AND 1630 metformin 500 mg tablet extended release 24 hr 500 mg PO BID Referrals / Follow Up: Kendy Modi MD [Primary Care Provider] - Cy Arnett MD [Med Staff - Consulting] - See Referral Note (Patient will need to be seen next week, call office to confirm appointment) Etienne Darden MD [Med Staff - Active Staff] - See Referral Note (Confirm an appointment in December 2024 for follow-up) Disposition Disposition (needs filled in before D/C Order can be placed): Residential Facility Charges/Coding Visit Charges Inpatient E&M: 26620 Disch Hosp >30min
--- NOTE | 2024-11-28 13:27 | PCM.PN.REN ---
Subjective Subjective Sitting in chair. Denies any complaints. Hopeful to be discharged today. Objective Data Objective Data Vital Signs: Vital Signs Temp Pulse Resp BP Pulse Ox O2 Del Method 97.8 F 71 17 122/60 H 99 Room Air 11/28/24 09:50 11/28/24 09:50 11/28/24 09:50 11/28/24 09:50 11/28/24 09:50 11/28/24 09:50 Oxygen Delivery Method Room Air Weight: 62.3 kg Body Mass Index (BMI) 21.4 Intake & Output: Intake and Output for Last 24 Hours 11/26/24 11/27/24 11/28/24 23:59 23:59 23:59 Intake Total 1930 / 1930 220 / 220 Output Total 2950 / 2950 2500 / 2500 1200 / 1200 Balance -1020 / -1020 -2280 / -2280 -1200 / -1200 Lab / Micro Data 11/25/24 07:43 11/28/24 04:23 Labs: Laboratory Results - last 24 hr 11/27/24 17:22: POC Glucose 312 H 11/27/24 20:30: POC Glucose 365 H 11/28/24 04:23: Sodium 134, Potassium 4.3, Chloride 102, Carbon Dioxide 21.9, Anion Gap 11, BUN 39 H, Creatinine 1.84 H, Estim Creat Clear Calc 34.33 L, Est GFR (MDRD) Non-Af 40 L, BUN/Creatinine Ratio 21.2 H, Glucose 201 H, Calcium 8.8 11/28/24 06:28: POC Glucose 208 H 11/28/24 11:31: POC Glucose 253 H Micro: Microbiology 11/24/24 22:57 Urine Catheter - Robb Urine Culture - Final Presumptive C albicans 11/24/24 20:32 Stool Stool Lactoferrin - Final 11/24/24 20:32 Stool Enteric Bacteriology - Final 11/24/24 20:32 Stool Clostridioides difficile (PCR) - Final Physical Exam Narrative Alert and oriented x 3, no apparent distress S1, S2, RRR Abdomen soft, nontender, ostomy No edema Robb with clear yellow urine in bag Assessment & Plan Assessment/Plan (1) MADELEINE (acute kidney injury): (2) Nausea & vomiting: PLAN: Plan 69-year-old male presented emergency room with complaints of nausea and vomiting, weakness, admitted for severe MADELEINE and acute pancreatitis (lipase 1112 on admission, noncontrast CT abdomen/pelvis no evidence of pancreatitis). Nonoliguric MADELEINE with normal baseline creatinine likely from significant GI losses, volume depletion with concurrent diuretic use. SCr 4.42 on admission. Blood pressures slightly low on admission to ER. Blood pressures have improved. Patient was given IV fluids in ER and also on maintenance IV fluids. CT abd no hydronephrosis. Good urine output. SCr 1.26 yesterday and today creatinine 1.8. Patient had 1.1 L urine output yesterday and 1.4 L stool output yesterday. Encouraged patient to increase fluid intake. K+and bicarb normal. Baseline SCr <1mg/dL. Off lasix, volume status appears compensated. Patient to be discharged off Lasix. Discharge planning in progress, possibly ECF for therapy. Discussed nephrology plan with Dr. Montez. Assessment and plan reviewed with Dr. Arnett. Will arrange for patient to be seen by Dr. Arnett in office next week.
--- NOTE | 2024-11-28 14:03 | CASEMGMT ---
Discharge Planning Discharge orders, signed med list, and transport time sent to [facility]. Physicians will transport pt by wheelchair at 3:30p. Nursing, SW, and pt updated. Pt states that he will update his . Patsy Riley DC Planning Asst.
[2024-11-28 14:58] VITALS: BP 94/59; PULSE 77; RESP 17; TEMP 36.5; O2SAT 99
--- NOTE | 2024-11-28 15:15 | NURSING ---
Report called to [facility] nurse Rosy
== END 2024-11-28 17:29 | DRG 682 ==
LOC: ED 22:37 → PCU 22:56
PROVIDERS: Nurse Practitioner Adult Health; Physician Assistant; Admitting Provider Hospitalist; Emergency Provider Emergency Medicine; PCP Family Medicine; Visit Provider Internal Medicine
DX: N17.9 Acute kidney failure, unspecified (principal); K85.10 Biliary acute pancreatitis without necrosis or infection; K31.1 Adult hypertrophic pyloric stenosis; I50.22 Chronic systolic (congestive) heart failure; I42.9 Cardiomyopathy, unspecified; E87.1 Hypo-osmolality and hyponatremia; N39.0 Urinary tract infection, site not specified; Z66 Do not resuscitate; I11.0 Hypertensive heart disease with heart failure; E11.40 Type 2 diabetes mellitus with diabetic neuropathy, unspecified; F32.A Depression, unspecified; Z93.2 Ileostomy status; I95.9 Hypotension, unspecified; I25.5 Ischemic cardiomyopathy; K80.20 Calculus of gallbladder without cholecystitis without obstruction; E87.6 Hypokalemia; E78.00 Pure hypercholesterolemia, unspecified; K21.9 Gastro-esophageal reflux disease without esophagitis; I25.10 Atherosclerotic heart disease of native coronary artery without angina pectoris; R19.7 Diarrhea, unspecified; E86.0 Dehydration; Z79.4 Long term (current) use of insulin; F41.9 Anxiety disorder, unspecified; G47.33 Obstructive sleep apnea (adult) (pediatric); I25.2 Old myocardial infarction; B96.1 Klebsiella pneumoniae [K. pneumoniae] as the cause of diseases classified elsewhere; R53.81 Other malaise; Z79.82 Long term (current) use of aspirin; Z79.02 Long term (current) use of 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/antiplatelets; Z95.1 Presence of aortocoronary bypass graft; Z93.3 Colostomy status; Z95.5 Presence of coronary angioplasty implant and graft; Z86.73 Personal history of transient ischemic attack (TIA), and cerebral infarction without residual deficits; R33.9 Retention of urine, unspecified
CPT/HCPCS: 36415; 74176; 80048; 80053; 81001; 82570; 82962; 83630; 83690; 83735; 84100; 84300; 85025; 85027; 87086; 87088; 87177; 87209; 87493; 87506; 93308; 97162; 97166; 97530; 97535; 99284; A4216; J2405

== ENCOUNTER 2024-12-02 22:58 | Emergency (ER) | payer BC, MEDICARE, SELFPAY ==
[2024-12-02] VITALS (7 sets, daily range): BP systolic 70–114; BP diastolic 41–68; PULSE 73–78; RESP 10–19; TEMP 36.8; O2SAT 98–100; BMI 23.2
--- NOTE | 2024-12-02 23:45 | EKG12_ITS ---
Test Reason : ARRYTH Blood Pressure : */* mmHG Vent. Rate : 73 BPM Atrial Rate : 73 BPM P-R Int : 170 ms QRS Dur : 94 ms QT Int : 394 ms P-R-T Axes : 21 -25 98 degrees QTcB Int : 434 ms Normal sinus rhythm Inferior infarct , age undetermined Abnormal ECG When compared with ECG of 14-Oct-2024 06:07, QRS duration has decreased Inferior infarct is now Present ST no longer depressed in Anterolateral leads T wave inversion no longer evident in Anterior leads Confirmed by CARLOS MANUEL MONTE, SAMSON ([id number]), film editor KARLA DE LA ROSA ([id number]) on 12/04/2024 1:23:53 PM Referred By: Confirmed By: SAMSON HOROWITZ MD
[2024-12-03] VITALS (15 sets, daily range): BP systolic 92–149; BP diastolic 57–72; PULSE 68–85; RESP 7–17; TEMP 36.7; O2SAT 94–99
[2024-12-03 00:06] LABS: Anion Gap 12 (5-15); BUN 72 mg/dL (4-19); BUN/Creat Ratio 29.1 RATIO (10-20); Calcium,Total 9.4 mg/dL (7.6-11.0); Carbon Dioxide 17.7 mmol/L (21.0-32.0); Chloride 100 mmol/L (98-108); Creatinine, Serum 2.46 mg/dL (0.70-1.20); EST Glomerular Filtration Rate 28 (>60); Estimated Creatinine Clearance 27.24 ml/min (50-250); Glucose 253 mg/dL (70-99); Potassium 5.9 mmol/L (3.3-5.1); Sodium Level 129 mmol/L (133-145)
[2024-12-03] MEDS: 0.9% Normal Saline (1000mL) 1,000 ML 999 ML IV ×2 (00:14→00:22)
--- NOTE | 2024-12-03 01:18 | EX.ED.DYSGE1 ---
HPI History of Present Illness Chief Complaint: Abn Labs Informant: patient and SNF Narrative Narrative: Patient is a 69-year-old male with past medical history of insulin-dependent diabetes hyperlipidemia previous colon cancer requiring ileostomy and recent admission to the hospital for acute kidney injury. [facility] states he had outpatient labs performed which showed his potassium was elevated at 6.4 and with this he was sent to the hospital for evaluation. Upon arrival with the patient reports he feels at his baseline and denies any chest pain shortness of breath or palpitation. He denies taking supplemental potassium and with concern for true hyperkalemia versus lab error he was sent in for further evaluation [facility] Medical History Ileostomy present Colostomy in place Orthostatic hypotension Essential hypertension Loss of hearing Wears glasses Cancer Depression Insulin dependent diabetes mellitus Walker as ambulation aid Arthritis High cholesterol Restless legs Injury of back Injury of head and neck Syncope Dietary restriction Gastric reflux Non-smoker CPAP (continuous positive airway pressure) dependence Shortness of breath on exertion Leg cramps History of pain when walking History of echocardiogram History of stress test Cardiology follow-up encounter History of heart attack Colorectal cancer Dysphagia invasive rectal adenocarcinoma Diabetic neuropathy Restrictive lung disease Type 2 diabetes mellitus Anxiety disorder GERD (gastroesophageal reflux disease) Carotid artery disease Obstructive sleep apnea 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 Peripheral vascular occlusive disease CVA (cerebral vascular accident) ALEJANDRO (obstructive sleep apnea) Dyslipidemia HTN (hypertension) Home Medications ?Medication ?Instructions ?Recorded ?Last Taken ?Type aspirin 81 mg chewable tablet 81 mg PO DAILY heart health 03/20/16 03/10/23 History clopidogrel 75 mg tablet 75 mg PO DAILY blood thinner #90 10/10/23 Unknown Rx tabs pantoprazole 40 mg tablet,delayed 40 mg PO DAILY GERD 12/01/23 Unknown History release calcium carbonate (Tums) 300 mg PO TID PRN dyspepsia 01/31/24 Unknown History melatonin 3 mg tablet 3 mg PO QHS sleep 01/31/24 Unknown History sodium chloride 0.65 % nasal spray 2 spray intranasal Q4H PRN dry 01/31/24 Unknown History aerosol ([place] Saline) nasal passages carvedilol 6.25 mg tablet 6.25 mg PO BID blood pressure #0 02/09/24 Unknown Rx tabs acetaminophen 325 mg capsule 650 mg PO Q6H PRN pain 05/21/24 Unknown History atorvastatin 20 mg tablet 20 mg PO QDAY cholesterol 05/21/24 Unknown History gabapentin 300 mg capsule 300 mg PO DAILY nerve pain 08/25/24 Unknown History duloxetine 30 mg capsule,delayed 30 mg PO QDAY 10/30/24 Unknown History release isosorbide mononitrate 30 mg 30 mg PO DAILY 30 days #30 tabs 10/30/24 Unknown Rx tablet,extended release 24 hr insulin glargine-yfgn 100 unit/mL 15 unit (0.15 mL) subcut BID #0 mL 11/28/24 Unknown Rx (3 mL) subcutaneous pen lisinopril 10 mg tablet 10 mg PO DAILY #0 tabs 11/28/24 Unknown Rx Allergy/AdvReac Type Severity Reaction Status Date / Time No Known Allergies Allergy Verified 12/02/24 23:02 Family History Father CAD (coronary artery disease) Hypertension Cancer leukemia Diabetes Heart disease High cholesterol Mother CVA (cerebral vascular accident) Diabetes Breast cancer Brother Diabetes Surgical History History of bilateral cataract extraction History of left heart catheterization (LHC) (~01/22/15) History of right and left heart catheterization (LHC) (~12/25/14) History of eye surgery PTCA Left Anterior Tibial and Paroneal Artery History of coronary artery stent placement (01/02/15) H/O coronary artery bypass surgery (05/30/08) History of right-sided carotid endarterectomy Excision Max.Zygoma Face Tumor History of tonsillectomy History of herniorrhaphy Social History household members: spouse Smoking Status: Never smoker alcohol intake: never substance use type: does not use caffeine: Yes what type of physical activity do you participate in: none ROS ROS ED Constitutional Constitutional ED: Denies chills or fever(s) Eyes Eyes: Denies change in vision ENT ENT ED: Denies sore throat Cardiovascular Cardiovascular: Denies chest pain, palpitations or racing heartbeat Respiratory/Chest Respiratory/Chest: Denies cough or dyspnea Gastrointestinal Gastrointestinal: Denies abdominal pain, nausea or vomiting Musculoskeletal Musculoskeletal: Denies back pain Integumentary Denies rash Neurologic Neurologic: Denies headache(s) Hematologic/Lymphatic Hematologic/Lymphatic: Denies easy bleeding or easy bruising EXAM Physical Exam Const Vital Signs: 12/02/24 22:59 12/02/24 23:03 12/02/24 23:05 Temperature 98.2 F Temperature Source Oral Pulse Rate 78 74 Respiratory Rate 13 11 L Respiratory Effort Normal Non-Labored Respiratory Pattern Normal Blood Pressure 85/50 L Blood Pressure Mean 61 Pulse Ox 99 99 Oxygen Delivery Method Room Air 12/02/24 23:06 12/02/24 23:15 12/02/24 23:17 Temperature Temperature Source Pulse Rate 74 74 Respiratory Rate 11 L 11 L Respiratory Effort Respiratory Pattern Blood Pressure 70/47 L 82/68 L 101/53 L Blood Pressure Mean 56 74 68 Pulse Ox 99 99 Oxygen Delivery Method 12/02/24 23:30 12/02/24 23:45 12/03/24 00:00 Temperature Temperature Source Pulse Rate 73 73 74 Respiratory Rate 10 L 19 H 12 Respiratory Effort Respiratory Pattern Blood Pressure 102/51 L 114/41 L 128/63 H Blood Pressure Mean 65 64 83 Pulse Ox 98 100 99 Oxygen Delivery Method 12/03/24 00:15 12/03/24 00:30 12/03/24 00:45 Temperature Temperature Source Pulse Rate 70 72 75 Respiratory Rate 16 14 14 Respiratory Effort Respiratory Pattern Blood Pressure 120/59 L 129/61 H Blood Pressure Mean 78 81 Pulse Ox 99 99 99 Oxygen Delivery Method 12/03/24 01:00 Temperature Temperature Source Pulse Rate 83 Respiratory Rate 15 Respiratory Effort Respiratory Pattern Blood Pressure 127/63 H Blood Pressure Mean 82 Pulse Ox 99 Oxygen Delivery Method Positive well nourished and well developed General Appearance ED: well developed; Negative for pallor HEENT Reports dry mucous membranes HEENT Narrative: Normocephalic atraumatic Mucous membranes are mildly dry without secondary findings to suggest infection Mouth ED: Yes dry mucous membranes Mouth: dry mucous membranes Eyes PERRL and EOMs intact bilaterally General Eye ED: Negative for scleral icterus Neck supple Neck Narrative: No nuchal rigidity or meningeal signs noted Resp normal respiratory effort and clear to auscultation bilaterally Cardio regular rate and regular rhythm GI non-tender, non-distended and no masses GI Narrative: Ileostomy in place draining brown soft stool No voluntary guarding rigidity or pulsatile mass Auscultation: normoactive bowel sounds Palpation: soft Extremity normal to inspection Neuro oriented x3 Neuro Narrative: Chronic deficits from previous CVA no new or acute findings Sensorium / Orientation: alert Psych mental status grossly normal Skin no rashes or lesions noted Skin Narrative: Skin turgor is slightly increased General Skin Exam: Negative for jaundice or pallor MDM MDM MDM Narrative Medical decision making narrative: Patient initially arrived to the ER slightly hypotensive but otherwise with stable vitals. He reported he felt normal/at his baseline and is only here because he was advised to come in for further evaluation based on his outpatient labs. There is concern that patient truly is hyperkalemic versus hemolyzed nation in lab error. An EKG was obtained which showed sinus rhythm without peaked T waves going against true hyperkalemia. He does show changes for dehydration and there is concern that he may be developing repeat kidney injury. Secondary to this I rechecked a basic metabolic profile. His creatinine has elevated from 1.8-2.4 and his potassium is slightly elevated at 5.9. I do feel as his last creatinine was 1.8 and it is elevated today that the hyperkalemia is most likely from volume depletion. He was given 2 L of normal saline which will help improve the creatinine as well as reduce the hyperkalemia. He was also given Kayexalate which will bind to the potassium and remove it from his system. His blood pressure improved to a normal value with IV hydration further cooperating dehydration as a cause of symptoms. At this time he is not have a cardiac dysrhythmia there is no obvious findings for infection based on his physical exam and his mild elevation to his creatinine does not warrant readmission to the hospital. Therefore he can be discharged home and have his values checked as an outpatient to ensure improvement over the next few days History & Record Review Discussion w/independent historian: EMS personnel and Patient Lab Data Attestation: I reviewed the patient's lab results. Labs: Laboratory Results - last 24 hr 12/02/24 23:05 Sodium 129 L Potassium 5.9 H Chloride 100 Carbon Dioxide 17.7 L Anion Gap 12 BUN 72 H Creatinine 2.46 H Estim Creat Clear Calc 27.24 L Est GFR (MDRD) Non-Af 28 L BUN/Creatinine Ratio 29.1 H Glucose 253 H Calcium 9.4 Discharge Plan Triage Chief Complaint: Abn Labs ED Provider: Ross Crump Dx/Rx/DC Orders Clinical Impression: Renal insufficiency, Hyperkalemia, CVA (cerebral vascular accident), Dehydration, Dyslipidemia, Diabetes mellitus type 2, insulin dependent Instructions: ED Hyperkalemia, ED Renal Insufficiency Prescriptions: No Action atorvastatin 20 mg tablet 20 mg PO QDAY duloxetine 30 mg capsule,delayed release(DR/EC) 30 mg PO QDAY isosorbide mononitrate 30 mg tablet extended release 24 hr 30 mg PO DAILY 30 Days Qty: 30 11RF aspirin 81 MG tablet,chewable 81 mg PO DAILY melatonin 3 mg tablet 3 mg PO QHS Tums 300 mg (750 mg) tablet,chewable 300 mg PO TID PRN (Reason: dyspepsia) [place] Saline 0.65 % aerosol,spray 2 spray intranasal Q4H PRN (Reason: dry nasal passages) Rx Instructions: while awake carvedilol 6.25 mg Tablet 6.25 mg PO BID Qty: 0 0RF gabapentin 300 mg capsule 300 mg PO DAILY Patient Comments: Has been out X 1 week insulin glargine-yfgn 100 unit/mL (3 mL) Insulin Pen 15 unit subcut BID Qty: 0 0RF lisinopril 10 mg Tablet 10 mg PO DAILY Qty: 0 0RF pantoprazole 40 mg tablet,delayed release (DR/EC) 40 mg PO DAILY acetaminophen 325 mg capsule 650 mg PO Q6H PRN (Reason: pain) clopidogrel 75 mg tablet 75 mg PO DAILY Qty: 90 3RF Primary Care Provider: Dwayne Aldana Referrals: Dwayne Aldana MD [Primary Care Provider] - Activity Restrictions/Additional Instructions: Your kidney function is beginning to trend upwards and this is most likely related to mild dehydration. You were given IV fluids to help reverse this. Your potassium was slightly elevated at 5.9 which was treated with IV fluids and Kayexalate. Please have your family doctor recheck your laboratory values in the next few days to ensure that your kidney function and potassium is remaining stable/improving and return to the ER should you have any further concerns Print Language: Telugu Disposition Disposition: Home, Self Care
[2024-12-03] MEDS: Sodium Polystyrene Sulfonate 15 GM/60 ML UDC PO (01:45)
[2024-12-03] MEDS: Acetaminophen 500 MG Tablet 1000 MG PO (01:45)
--- NOTE | 2024-12-03 01:56 | ED.RN ---
This RN called report back to the [facility], the [facility].
== END 2024-12-03 08:42 | disposition home or self-care (01) ==
PROVIDERS: Emergency Provider Emergency Medicine; PCP Family Medicine; Visit Provider Emergency Medicine
DX: E87.5 Hyperkalemia (principal); Z93.2 Ileostomy status; E11.40 Type 2 diabetes mellitus with diabetic neuropathy, unspecified; Z79.4 Long term (current) use of insulin; E11.51 Type 2 diabetes mellitus with diabetic peripheral angiopathy without gangrene; I10 Essential (primary) hypertension; E86.0 Dehydration; I25.728 Atherosclerosis of autologous artery coronary artery bypass graft(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; I95.9 Hypotension, unspecified; I25.10 Atherosclerotic heart disease of native coronary artery without angina pectoris; N28.9 Disorder of kidney and ureter, unspecified; E78.00 Pure hypercholesterolemia, unspecified; K21.9 Gastro-esophageal reflux disease without esophagitis; Z79.82 Long term (current) use of aspirin; Z79.02 Long term (current) use of 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/antiplatelets; Z79.899 Other long term (current) drug therapy; Z95.1 Presence of aortocoronary bypass graft; Z95.5 Presence of coronary angioplasty implant and graft; Z86.73 Personal history of transient ischemic attack (TIA), and cerebral infarction without residual deficits
CPT/HCPCS: 80048; 93005; 96360; 99285

== ENCOUNTER → 2025-03-17 | Outpatient (CLI) | payer BC, MEDICARE, SELFPAY ==
[2025-03-17 14:22] LABS: Hematocrit 45.5 % (40-54); Hemoglobin 15.0 g/dL (13.0-16.5); Immature Granulocytes Count 0.030 X10^3/uL (0.0-0.0); Mean Corp Hgb Conc 33.0 g/dL (32-36); Mean Corpuscular Volume 88.9 fL (80-94); Mean Platelet Vol. 10.1 fl (6.2-12.0); NRBC Flagged by Analyzer 0 % (0-5); Platelet Count 285 K/mm3 (150-450); RBC Distribution Width CV 13.3 % (11.6-14.6); RBC Distribution Width SD 43.6 fl (35.1-43.9); Red Blood Count 5.12 M/mm3 (4.6-6.2); White Blood Count 9.9 K/mm3 (4.4-11.0)
[2025-03-17 15:14] LABS: Anion Gap 16 (5-15); BUN 45 mg/dL (4-19); BUN/Creat Ratio 26.7 RATIO (10-20); Calcium,Total 10.1 mg/dL (7.6-11.0); Carbon Dioxide 20.2 mmol/L (21.0-32.0); Chloride 99 mmol/L (98-108); Glucose 217 mg/dL (70-99); Potassium 4.9 mmol/L (3.3-5.1)
== END | disposition home or self-care (01) ==
LOC: LAB 13:48
PROVIDERS: PCP Family Medicine; Referring Provider Nurse Practitioner Gerontology; Visit Provider Nurse Practitioner Gerontology
DX: I50.20 Unspecified systolic (congestive) heart failure (principal)
CPT/HCPCS: 36415; 80048; 85025

== ENCOUNTER → 2025-04-14 | Outpatient (CLI) | payer BC, MEDICARE, SELFPAY ==
--- OUTSIDE RECORDS SUMMARY | 2025-04-14 06:07 | XMS RPT_ITS | CCD ---
Author Organization [facility] CliniSyut Care Team Providers Care Sole Leveling Machine Operator Name Role Phone KENZIE BARDALES Unavailable Unavailable KENZIE BARDALES Unavailable Unavailable KENZIE BARDALES Unavailable Kendy Figueroa Unavailable KENZIE BARDALES Unavailable Unavailable Dr. Kendy Modi Primary Care Provider Dr. Chris Biswas Attending Provider Dr. Dwayne Leonardo Referring Provider Dr. Kendy Modi Referring Provider Dr. Chris Biswas Other Provider Dr. Dwayne Gee Attending Provider VIVIAN Gale Referring Provider Dr. Citlali Zurita Emergency Provider Dr. Nehal Vogel Admit Provider Dr. Nehal Vogel Attending Provider Dr. Nehal Vogel Other Provider Dr. Dorys Askew Other Provider Dr. Dorys Askew Attending Provider Dr. Oliver Rodriguez Other Provider Dr. Oliver Rodriguez Attending Provider Dr. Tay Robertson Attending Provider Unavailable Dr. Tay Robertson Other Provider Unavailable Daryl AIRLINE STATION AGENT, AIRLINE STATION AGENT-C Tereza Attending Provider Daryl AIRLINE STATION AGENT, AIRLINE STATION AGENT-C Tereza Other Provider Kendy Modi Primary Care Provider Logan MONTE MD, Daesung Unavailable Doup RN, Jo Unavailable Unavailable Kendy Modi Primary Care Provider Logan MONTE MD, Daesung Unavailable Doup RN, Oj Unavailable Unavailable Kendy Modi Primary Care Provider Kendy Modi Primary Care Provider Dr. Kendy Modi Primary Care Provider Dr. Kendy Modi Referring Provider Dr. Dwayne Gee Attending Provider Dr. Kendy Modi Primary Care Provider Dr. Kendy Modi Referring Provider Roof AIRLINE STATION AGENT, AIRLINE STATION AGENT-C Vishal Samayoa Attending Provider Dr. Citlali Zurita Emergency Provider Dr. Matt Penny Admit Provider Dr. Matt Penny Other Provider Dr. Catherine Barton Attending Provider Dr. Catherine Barton Other Provider Kendy Modi MD Primary Care Provider Kendy Modi Primary Care Provider Logan MONTE MD, Daesung Unavailable Doup RN, Jo Unavailable Unavailable Dr. Kendy Modi Primary Care Provider Dr. Kendy Modi Referring Provider Dr. Prateek Smith Attending Provider Kendy oMdi MD Primary Care Provider Kendy Modi Primary Care Provider Logan MONTE, Bipin Unavailable ELENITA MONTE, UMESH Venegas Attending Unavailable JOLLIFF, KENDY S Primary Care Unavailable GASIOR, ANGELI C Admitting Unavailable GASIOR, ANGELI C Attending Unavailable CONSULT, NEUROLOGY-STROKE ALERT Consulting Unavailable JOSELITO MORA Admitting Unavailable BOOM FORD Attending Unavailable KENZIE BRITTON Referring Unavailable JOLLIFF, KENDY S Primary Care Unavailable JOLLIFF, KENDY S Primary Care Unavailable JOLLIFF, KENDY S Referring Unavailable GASIOR, ANGELI C Attending Unavailable JOLLIFF, KENDY S Primary Care Unavailable JOLLIFF, KENDY S Referring Unavailable GASIOR, ANGELI C Attending Unavailable JOLLIFF, KENDY S Referring Unavailable DANIA BAKER Attending Unavailable JOLLIFF, KENDY S Primary Care Unavailable Zohaib, Matt Unavailable JOLLIFF, KENDY NANDO Primary Care Unavailable ERIC GONZALEZ Attending Unavailable ERIC GONZALEZ Admitting Unavailable Ly MONTE, Dr. Kendy Chappell Primary Care Provider Dr. Kenzie Britton DO Emergency Provider Dr. Ling Ford DO Admit Provider Dr. Ling Ford DO Other Provider Dennis MONTE, Dr. Perez Other Provider Mick MONTE, Dr. Catherine Arreola Attending Provider Chau MONTE, Dr. Armando Carrillo Other Provider Mick MONTE, Dr. Catherine Arreola Other Provider Dr. Ross Crump DO Emergency Provider Kwabena MONTE, Dr. Kednra Johnson Attending Provider Kwabena MONTE, Dr. Kendra Johnson Admit Provider Kwabena MONTE, Dr. Kendra Johnson Other Provider Luis MONTE, Dr. Chandra Other Provider Hope MONTE, Dr. Benoit Other Provider Luis MONTE, Dr. Rivera Attending Provider Dr. Matt Penny MD Other Provider Luis MONTE, Dr. Chandra Attending Provider Luis MONTE, Dr. Chandra Referring Provider Ascencion MONTE, Dr. Browne Other Provider Sigrid MONTE, Dr. Kuhn Other Provider Roman MONTE, Dr. Mesa Other Provider Kushal CARLTON, Dr. Kirk Attending Provider Kushal CARLTON, Dr. Kirk Other Provider Edie MONTE, Dr. Tay Castillo Other Provider [phone] Cari MONTE, Dr. Cast Other Provider [phone] Katelin MONTE, Dr. Rodriguez Other Provider [phone] Martir MONTE, Dr. Maharaj Other Provider Samantha MONTE, Dr. Luna Other Provider [phone] Eber MONTE, Dr. Yip Other Provider [phone] Otilio MONTE, Dr. Hawkins Other Provider [phone] Elliott MONTE, Dr. York Other Provider [phone] Amor MONTE, Dr. Matthews Other Provider Unavailabl ky Hall MD, Dr. Carter Other Provider [phone] Nii MONTE, Dr. Rankin Other Provider Luna MONTE, Dr. Wlaker Other Provider Mayte MONTE, Dr. Sanchez Other Provider Dr. Jeffery Renteria DO Other Provider [phone] Leisa MONTE, Dr. Lubin Other Provider [phone] Ember MONTE, Dr. Knott Other Provider [phone] Yousif Snell DO Other Provider Kvng MONTE, Dr. Mccarty Other Provider Art MONTE, Dr. Pearson Other Provider [phone] Zohaib MONTE, Dr. Gutierrez Attending Provider Luis MONTE, Dr. Rivera Other Provider Adelso MONTE, Dr. Clifton Attending Provider Kendy Modi MD Attending Provider Unavailable Ly MONTE, Dr. Kendy Chappell Referring Provider [facility] AIRLINE STATION AGENT-CVishal Attending Provider yL MONTE, Dr. Kendy Chappell Attending Provider Claus CARLTON, Dr. Snyder Admit Provider Claus CARLTON, Dr. Snyder Attending Provider Claus CARLTON, Dr. Snyder Other Provider Melida CARLTON, Dr. Michelle Attending Provider Melida CARLTON, Dr. Michelle Other Provider Kip MONTE, Dr. Whittington Attending Provider MATT PENNY Referring Unavailable JOLLIFF, KENDY NANDO Primary Care Unavailable RUCHI, PEBBLES Referring Unavailable JOLLIFF, KENDY NANDO Primary Care Unavailable RUCHI, PEBBLES Referring Unavailable JOLLIFF, KENDY NANDO Primary Care Unavailable KENZIE DREW Attending Unavailable JOLLIFF, KENDY NANDO Primary Care Unavailable BATOOL AU Attending Unavailable SELF Referring Unavailable JOLLIFF, KENDY NANDO Primary Care Unavailable KEZNIE DREW Attending Unavailable JOLLIFF, KENDY NANDO Primary Care Unavailable Daniel GALARZA Attending Unavailable JOLLIFF, KENDY NANDO Referring Unavailable JOLLIFF, KENDY NANDO Primary Care Unavailable MELANIE YANG Attending Unavailable JOLLIFF, KENDY NANDO Primary Care Unavailable SAGE GONZALEZ Referring Unavailable JOLLIFF, KENDY NANDO Primary Care Unavailable MELANIE YANG Attending Unavailable SELF Referring Unavailable JOLLIFF, KENDY NANDO Primary Care Unavailable FOREST KIMBLE Attending Unavailable SELF Referring Unavailable JOLLIFF, KENDY NANDO Primary Care Unavailable RUCHI, PEBBLES Attending Unavailable JOLLIFF, KENDY NANDO Primary Care Unavailable Ly MONTE, Dr. Kendy Chappell Primary Care Provider Ly MONTE, Dr. Kendy Chappell Attending Provider Dr. Kendy Modi MD Referring Provider Alisia CARLTON, Dr. Hawkins Emergency Provider Claus CARLTON, Dr. Snyder Admit Provider Claus CARLTON, Dr. Snyder Other Provider Hope MONTE, Dr. Benoit Other Provider Melida CARLTON, Dr. Michelle Attending Provider Melida CARLTON, Dr. Michelle Other Provider Kip MONTE, Dr. Whittington Attending Provider Alisia CARLTON, Dr. Hawkins Attending Provider Jovan MONTE, Dr. Rice Primary Care Provider Jovan MONTE, Dr. Rice Referring Provider Daryl AIRLINE STATION AGENT-CTereza Attending Provider Dre De Los Santos MD Primary Care Provider Ly MONTE, Dr. Kendy Chapepll Primary Care Provider Daryl AIRLINE STATION AGENT-CTereza Referring Provider Luis, Prateek Referring Unavailable Luis, Prateek Attending Unavailable Jolliff, Kendy S Primary Care Unavailable Zohaib, Matt Referring Unavailable Zohaib, Matt Attending Unavailable Jfiff, Kendy S Primary Care Unavailable Miguel Angel Montez Attending Unavailable Yulialliff, Kendy S Primary Care Unavailable Hope, Jayaprakas Consulting Unavailable Claudio Devlin Admitting Unavailable Claudio Devlin Consulting Unavailable Kwabena, Kendra L Consulting Unavailable Kwabena, Kendra L Admitting Unavailable Nicole Smith Attending Unavailable Yulialliff, Kendy S Primary Care Unavailable Luis, Prateek Consulting Unavailable Chris Collins Consulting Unavailable Hope, Jayaprakas Consulting Unavailable ChauArmandoIssa Consulting Unavailable Zohaib, Matt Consulting Unavailable White, Kendra L Admitting Unavailable Zohaib, Matt Attending Unavailable White, Kendra L Consulting Unavailable Yulialliff, Kendy S Primary Care Unavailable Luis, Prateek Consulting Unavailable Chris Collins Consulting Unavailable Hope, Jayaprakas Consulting Unavailable Chau, Issa Consulting Unavailable Zohaib, Matt Consulting Unavailable Luis, Prateek Attending Unavailable Jolliff, Kendy S Attending Unavailable Jolliff, Kendy S Primary Care Unavailable Roof AIRLINE STATION AGENT, Vishal H Attending Unavailable Jolliff, Kendy S Primary Care Unavailable Jolliff, Kendy S Referring Unavailable Reagan Fatima Attending Unavailable Luis, Prateek Referring Unavailable Pavan Vegas Consulting Unavailable Bam Matta Consulting Unavailable Moshe Owens Consulting Unavailable Reagan Fatima Consulting Unavailable Tay Irizarry Consulting Unavailable Segun Alcala Consulting Unavailable Michael Thomason Consulting Unavailable Carol Ann Mcmahan Consulting UnavailJeremy Crowley Consulting Unavailable Phi Velázquez Consulting Unavailable Ross Yaeñz Consulting Unavailable Chela Gallagher Consulting Unavailable Byron Chinchilla Consulting Unavailable Emma Hall Consulting Unavailable Chucho Bales Consulting Unavailable Aaron Carrasco Consulting Unavailable Daniel Hu Consulting Unavailable Jeffery Renteria Consulting Unavailable Tristian De La Fuente Consulting Unavailable Hedy Pa Consulting Unavailable Yousif Snell Consulting Unavailable Lul Calderon Consulting Unavailable Michel Cordova Consulting Unavailable Nicole Smith Attending Unavailable Nicole Smith Consulting Unavailable Kendra Yuan Attending Unavailable Jolliff, Kendy S Primary Care Unavailable Aldana, Dwayne Primary Care Unavailable Ross Crump Attending Unavailable Daryl AIRLINE STATION AGENT, Tereza Referring Unavailable Daryl AIRLINE STATION AGENT, Tereza Attending Unavailable Filiberto, Chalon Primary Care Unavailable Aldana, Dwayne Primary Care Unavailable Roof AIRLINE STATION AGENT, Vishal Samayoa Attending Unavailable Roof AIRLINE STATION AGENT, Vishal H Referring Unavailable Cy Arnett Attending Unavailable Jolliff, Kendy S Primary Care Unavailable Roof AIRLINE STATION AGENT, Vishal H Referring Unavailable Roof AIRLINE STATION AGENT, Vishal Samayoa Attending Unavailable Jolliff, Kendy S Primary Care Unavailable Brito AIRLINE STATION AGENT, Tereza Referring Unavailable Filiberto, Chalon Primary Care Unavailable Brito AIRLINE STATION AGENT, Tereza Attending Unavailable Brito AIRLINE STATION AGENT, Tereza Attending Unavailable Aldana, Dwayne Referring Unavailable Filiberto, Chalon Primary Care Unavailable Ling Ford Admitting Unavailable Catherine Barton Attending Unavailable Chris Collins Consulting Unavailable Jolliff, Kendy S Primary Care Unavailable LoganLing Consulting Unavailable Armando Ritchie Consulting Unavailable Jolliff, Kendy S Primary Care Unavailable Jolliff, Kendy S Attending Unavailable Chris Collins Consulting Unavailable Catherine Barton Attending Unavailable Ling Ford Admitting Unavailable Jolliff, Kendy S Primary Care Unavailable Logan, Ling Consulting Unavailable Armando Ritchie Consulting Unavailable Catherine Barton Consulting Unavailable Claudio Devlin Attending Unavailable Claudio Devlin Consulting Unavailable Jolliff, Kendy S Primary Care Unavailable Claudio Devlin Admitting Unavailable Hope, Cy Consulting Unavailable Miguel Angel Montez Attending Unavailable Miguel Angel Montez Consulting Unavailable Etienne Darden Attending Unavailable Ling Ford Attending Unavailable Luis, Prateek Attending Unavailable Jolliff, Kendy S Primary Care Unavailable Jolliff, Kendy S Referring Unavailable Tereza Brito NP Attending Unavailable Aldana, Dwayne Referring Unavailable Jovan, Dwayne Primary Care Unavailable Luis, Prateek Referring Unavailable Luis, Prateek Attending Unavailable Jolliff, Kendy S Primary Care Unavailable Luis, Prateek Attending Unavailable Jolliff, Kendy S Primary Care Unavailable Jolliff, Kendy S Primary Care Unavailable Pk Shin Attending Unavailable Luis, Prateek Attending Unavailable Jolliff, Kendy S Primary Care Unavailable Matt Penny Attending Unavailable Jolliff, Kendy S Referring Unavailable Jolliff, Kendy S Primary Care Unavailable Luis, Prateek Referring Unavailable Luis, Prateek Attending Unavailable Jolliff, Kendy S Primary Care Unavailable Jolliff, Kendy S Attending Unavailable Jolliff, Kendy S Primary Care Unavailable Jolliff, Kendy S Referring Unavailable Jolliff OLS, Kendy S Attending Unavailable Jolliff, Kendy S Primary Care Unavailable Medications Current Medications Medication Drug Class(es) Dates Sig (Normalized) Sig (Original) acetaminophen 325 mg oral capsule (20 sources) Start: 12-29-2023 take 2 tablets by mouth every six hours acetaminophen (TYLENOL) 325 mg tablet Take 2 tablets by mouth every 6 hours. 12/29/2023 Active Start: 12-02-2023 End: 05-21-2024 take 2 capsules by mouth every six hours as needed for pain Acetaminophen 325 mg capsule Active 650 mg PO EVERY 6 HOURS as needed for pain May 21, 2024 1:47pm Start: 11-19-2023 End: 11-28-2023 take 650 mg by mouth every four hours as needed aspirin 81 mg chewable tablet (20 sources) Platelet Aggregation Inhibitor, Nonsteroidal Anti-inflammatory Drug Start: 03-20-2016 End: 11-28-2023 take 1 tablet by mouth once daily Aspirin 81 MG tablet,chewable Active 81 mg PO DAILY March 20, 2016 12:00am heart health End: 12-29-2023 take 1 tablet by mouth once daily Aspirin 81 mg Tab Take 81 mg by mouth once daily. 0 12/29/2023 Discontinued Comment on above: Take 81 mg by mouth once daily. atorvastatin 20 mg oral tablet (19 sources) HMG-CoA Reductase Inhibitor Start: take 1 tablet by mouth once daily Atorvastatin (Lipitor) 20 mg tablet Active 20 mg PO daily March 17, 2025 12:00am Start: 05-21-2024 End: 12-09-2024 take 1 tablet by mouth once daily Atorvastatin 20 mg tablet Discontinued 20 mg PO daily May 21, 2024 12:00am December 09, 2024 1:33pm cholesterol Start: 12-01-2023 End: 05-21-2024 take 1 tablet by mouth at bedtime Atorvastatin 40 mg tablet Discontinued 40 mg PO AT BEDTIME December 01, 2023 12:00am May 21, 2024 1:51pm anti lipid Start: 12-01-2023 End: 05-21-2024 carvedilol 6.25 mg oral tablet (20 sources) alpha-Adrenergic Tian, beta-Adrenergic Tian Start: 02-09-2024 take 1 tablet by mouth twice daily Carvedilol 6.25 mg Tablet Active 6.25 mg PO TWICE A DAY 0 0 February 09, 2024 12:00am blood pressure Start: 01-31-2024 End: 02-09-2024 take 1 tablet by mouth twice daily at mealtime Carvedilol 25 mg tablet Discontinued 25 mg PO TWICE A DAY January 31, 2024 12:00am February 09, 2024 4:17pm must administer with a meal/food Start: 12-29-2023 take 1 tablet by vic th twice daily carvedilol (COREG) 12.5 mg tablet Take 1 tablet by mouth two times a day. 12/29/2023 Active Start: 12-01-2023 End: 01-31-2024 take 2 tablets by mouth twice daily at mealtime Carvedilol 6.25 mg tablet Discontinued 12.5 mg PO TWICE A DAY December 01, 2023 12:00am January 31, 2024 5:54pm hypertension must administer with a meal/food Start: 11-13-2023 End: 11-28-2023 Start: 09-07-2023 End: 12-01-2023 take 1 tablet by mouth twice daily at mealtime Carvedilol 6.25 mg tablet Discontinued 6.25 mg PO TWICE A DAY 180 September 28, 2023 9:03am December 01, 2023 10:50pm must administer with a meal/food Start: 09-07-2023 End: 01-31-2024 Start: 09-29-2021 End: 11-28-2023 take 1 tablet by mouth twice daily Carvedilol 3.125 mg tablet Discontinued 3.125 mg PO TWICE A DAY 180 October 03, 2022 11:22am September 07, 2023 3:55pm heart End: 12-29-2023 take 2 tablets by mouth twice daily, then take 6.25 tablets by mouth every month carvedilol (COREG) 3.125 mg tablet Take 6.25 mg by mouth two times a day. Pt states dose was increased to 6.25 about 1 month ago 0 12/29/2023 Discontinued Comment on above: Take 3.125 mg by vic th twice daily. clopidogrel 75 mg oral table t (20 sources) P2Y12 Platelet Inhibitor Start: 11-14-2023 End: 11-14-2023 Start: 03-20-2016 End: 12-17-2023 take 1 tablet by mouth once daily Clopidogrel 75 mg tablet Discontinued 75 mg PO DAILY 90 3 October 05, 2023 2:12pm October 10, 2023 9:09am blood thinner DULoxetine 30 mg delayed release oral capsule (20 sources) Serotonin and Norepinephrine Reuptake Inhibitor Start: 10-30-2024 take 1 capsule by mouth once daily Duloxetine 30 mg capsule,delayed release(DR/EC) Active 30 mg PO daily October 30, 2024 12:00am Start: 03-12-2023 End: 10-30-2024 Duloxetine 60 MG capsule,del ayed release(DR/EC) Discontinued 30 mg PO DAILY 30 March 12, 2023 11:39am October 30, 2024 2:24pm depression Start: 03-20-2016 End: 10-30-2024 Start: 12-15-2015 End: 12-29-2023 take 1 capsule by mouth once daily Duloxetine 60 MG capsule,delayed release(DR/EC) Discontinued 60 mg PO DAILY March 20, 2016 12:00am March 12, 2023 11:39am depression Comment on above: Take 60 mg by mouth once daily. enteric contrast (will be provided with radiology test) (1 source) Start: 05-26-2023 End: 05-27-2023 enteric contrast (will be provided with radiology test) Indications: Rectal cancer (HCC) , Elevated CEA For CT CHESTABD/PEL W IVCON Routine order Administer, As Directed One Time Only, via Oral, Rectal, both Oral and Rectal, Enteric Tube, Stoma or Indwelling Catheter, Enteric Contrast as designated per enteric contrast guidelines 1 Each 0 05/26/2023 05/27/2023 Active Comment on above: For CT CHESTABD/PEL W IVCON Routine order Administer, As Directed One Time Only, via Oral, Rectal, both Oral and Rectal, Enteric Tube, Stoma or Indwelling Catheter, Enteric Contrast as designated per enteric contrast guidelines gabapentin 300 mg oral capsule (20 sources) Anti-epileptic Agent Start: 08-25-2024 take 1 capsule by mouth once daily Gabapentin 300 mg capsule Active 300 mg PO DAILY August 25, 2024 1:00am nerve pain Start: 12-17-2020 End: 07-02-2024 take 1 capsule by mouth at bedtime Gabapentin 300 mg capsule Discontinued 300 mg PO AT BEDTIME December 17, 2020 12:00am January 31, 2024 6:06pm neuropathy Start: 10-07-2019 End: 12-17-2020 take 1 capsule by mouth three times daily Gabapentin (Neurontin) 100 mg capsule Discontinued 100 mg PO THREE TIMES A DAY October 07, 2019 1:00am December 17, 2020 1:37pm take 1 capsule by [facility] three times daily gabapentin (NEURONTIN) 300 mg capsule Take 300 mg by mouth three times a day. Active Comment on above: TAKE 1 CAPSULE DAILY Take 1 capsule by [facility] once daily. Take 1 capsule by [facility] once daily for 14 days. glucose 0.45 mg/mg oral gel (20 sources) Start: 12-29-2023 dextrose (TRUEPLUS) 15 gram/32 mL oral gel Take 32 mL by mouth as needed. 12/29/2023 Active Start: 12-02-2023 End: 05-21-2024 Dextrose (Glucose Gel) 40 % gel Discontinued 10 g PO Q15M as needed for hypoglycemia December 02, 2023 12:00am May 21, 2024 1:48pm until symptoms of low blood sugar are controlled Start: 12-02-2023 End: 05-21-2024 Insulin Glargine-Yfgn (Semglee(Insulin Glarg-Yfgn)Pen) 100 unit/mL (3 mL) insulin pen (4 sources) Start: 03-17-2025 Insulin Glargi ne-Yfgn (Semglee(Insulin Glarg-Yfgn)Pen) 100 unit/mL (3 mL) insulin pen Active 50 U SC TWICE A DAY March 17, 2025 12:00am Start: 05-21-2024 End: 11-28-2024 Insulin Glargine-Yfgn (Semgl ee(Insulin Glarg-Yfgn)Pen) 100 unit/mL (3 mL) insulin pen Discontinued 45 U SC TWICE A DAY May 21, 2024 12:00am November 28, 2024 12:53pm diabetes Insulin Glargine-Yfgn 100 unit/mL (3 mL) Insulin Pen (2 sources) Start: 11-28-2024 Insulin Glargine-Yfgn 100 unit/mL (3 mL) Insulin Pen Active 15 U SC TWICE A DAY 0 0 November 28, 2024 12:00am insulin lispro 100 unt/ml injectable solution (20 sources) Insulin Analog Start: 12-29-2023 inject 3 [IU] by subcutaneous injection at mealtime insulin lispro 100 unit/mL injection Inject 3 Units subcutaneously with meals. 12/29/2023 Active Start: 11-28-2023 Start: 09-26-2021 End: 11-28-2024 Insulin Lispro (Humalog Kwik pen Insulin) 100 unit/mL insulin pen Discontinued 1 sliding scale dose SC 3 TIMES DAILY WITH MEALS September 26, 2021 7:44pm November 28, 2024 12:54pm diabetes Please contact the information source for Protocol details. Start: 06-11-2019 End: 12-29-2023 insulin lispro (HUMALOG KWIK PEN INSULIN) 100 unit/mL inpn 17 units before each meals Plus sliding Scale (~20 units per meal) 18 mL 6 06/11/2019 12/29/2023 Discontinued Start: 04-02-2018 End: 09-26-2021 Insulin Lispro (Humalog Kwik pen Insulin) 100 unit/mL insulin pen Discontinued 0 SC .COMPLEX 60 3 April 02, 2018 12:00am September 26, 2021 7:44pm Type 2 diabetes mellitus with other diabetic neurological complication Take 17 units each meal plus sliding scale up to 65 units daily Start: 04-02-2018 End: 11-28-2024 End: 11-28-2023 Insulin Lispro 1 00 UNIT/ML vial Inject under the skin 3 times daily (take before meals). 0 Active Comment on above: 17 units before each meals Plus sliding Scale (~20 units per meal) 24 hr isosorbide mononitrate 30 mg extended release oral tablet (14 sources) Nitrate Vasodilator Start: 5 End: take 1 tablet by mouth once daily, then take 1 tablet by mouth every twenty-four hours Isosorbide Mononitrate 30 mg tablet extended release 24 hr Active 30 mg PO DAILY 30 30 October 30, 2024 2:57pm isosorbide dinitrate 30 mg oral tablet (1 source) Nitrate Vasodilator take 1 tablet by mouth four times daily isosorbide dinitrate (ISORDIL) 30 mg tablet Take 30 mg by mouth four times daily. Active iv contrast (will be provided with radiology test) (3 sources) Start: 3 End: 3 iv contrast (will be provided with radiology test) Indications: Rectal cancer (HCC) , Elevated CEA CT Chest ABD/PEL-Inject, intravenously, once for 1 dose.No IV access, insert saline lock prior to the beginning of sedation, infusion, injection of imaging exam. Discontinue saline lock post exam. If Pt. has a central line or IVAD, may access for administration according to line specific nursing protocol. Once exam is complete flush line and de-access according to line specific nursing protocol in the CT contrast administration guidelines link. 1 Each 0 05/26/2023 05/27/2023 Active Start: 12-13-2021 End: 12-14-2021 iv contrast (will be provide d with radiology test) Indications: Rectal cancer (HCC) , Abnormal MRI, liver MRI LIVER (EOVIST) Inject, intravenously, once for 1 dose. No IV access, insert saline lock prior to the beginning of sedation, infusion, injection of imaging exam. Discontinue saline lock post exam. If Pt. has a central line or IVAD, may access for administration according to line specific nursing protocol. Once exam is complete flush line and de-access according to line specific nursing protocol in the MR contrast administration guidelines link. 1 Each 0 12/13/2021 12/14/2021 Active Start: 11-23-2021 End: 11-24-2021 iv contrast (will be provide d with radiology test) Indications: Rectal cancer (HCC) , Abnormal CT of the abdomen MRI LIVER (EOVIST) Inject, intravenously, once for 1 dose. No IV access, insert saline lock prior to the beginning of sedation, infusion, injection of imaging exam. Discontinue saline lock post exam. If Pt. has a central line or IVAD, may access for administration according to line specific nursing protocol. Once exam is complete flush line and de-access according to line specific nursing protocol in the MR contrast administration guidelines link. 1 Each 0 11/23/2021 11/24/2021 Active Comment on above: MRI LIVER (EOVIST) I nject, intravenously, once for 1 dose. No IV access, insert saline lock prior to the beginning of sedation, infusion, injection of imaging exam. Discontinue saline lock post exam. If Pt. has a central line or IVAD, may access for administration according to line specific nursing protocol. Once exam is complete flush line and de-access according to line specific nursing protocol in the MR contrast administration guidelines link. CT Chest ABD/PEL-Inj ect, intravenously, once for 1 dose.No IV access, insert saline lock prior to the beginning of sedation, infusion, injection of imaging exam. Discontinue saline lock post exam. If Pt. has a central line or IVAD, may access for administration according to line specific nursing protocol. Once exam is complete flush line and de-access according to line specific nursing protocol in the CT contrast administration guidelines link. labetalol hydrochloride 5 mg/ml injectable solution (20 sources) beta-Adrenergic Tian Start: 2023 take 5 mg intravenously every four hours as needed labetalol (NORMODYNE) 5 mg/mL injection Inject 1 mL intravenously every 4 hours as needed (SBP > 160 only if HR 12/29/2023 Active Start: 11-20-2023 End: 11-28-2023 take 10 mg intravenously every six hours as needed Start: 11-16-2023 End: 11-16-2023 loperamide hydrochloride 2 mg oral capsule (1 source) Opioid Agonist take 1 capsule by mouth every six hours as needed loperamide (IMODIUM A-D) 2 mg cap(s) Take 2 mg by mouth four times a day as needed. Active meclizine hydrochloride 25 mg oral tablet (1 source) Antiemetic take 1 tablet by mouth three times daily meclizine (ANTIVERT) 25 mg tab Take 25 mg by mouth three times a day. Active melatonin 3 mg oral tablet (20 sources) Start: 01-31-2024 take 1 tablet by mouth at bedtime Melatonin 3 mg tablet Active 3 mg PO AT BEDTIME January 31, 2024 12:00am sleep Start: 01-31-2024 Start: 12-29-2023 take 2 tablets by mouth once m elatonin 3 mg tablet Take 2 tablets by mouth one time only for 1 dose. 2 tablet 12/29/2023 Active Multivitamin (Daily Multi-Vitamin) tablet (11 sources) Start: 06-22-2021 take 1 tablet by mouth once daily Multivitamin (Daily Multi-Vitamin) tablet Active 1 TABLET PO DAILY June 22, 2021 5:06pm Start: 06-22-2021 End: 03-10-2023 Multivitamin (Daily Multi-Vi tamin) tablet Discontinued 1 {tbl} PO DAILY June 22, 2021 1:00am March 10, 2023 4:41pm vitamin Start: 06-22-2021 End: 03-10-2023 take 1 tablet by mouth once daily Multivitamin (Daily Multi-Vitamin) tablet Discontinued 1 TABLET PO DAILY June 22, 2021 1:00am March 10, 2023 4:41pm Start: 06-22-2021 take 1 tablet by vic th once daily Multivitamin (Daily Multi-Vitamin) tablet Active 1 TABLET PO DAILY June 22, 2021 12:00am Multivitamins with Fluoride (MULTI VIT-FLUORIDE ORAL) (1 source) Multivitamins wi th Fluoride (MULTI VIT-FLUORIDE ORAL) Take by mouth. Active OLANZapine 5 mg disintegrating oral tablet (20 sources) Atypical Antipsychotic Start: 2023 take 2.5 mg by mouth every eight hours as needed OLANZapine orally disintegrating (ZYPREXA ZYDIS) 5 mg disintegrating tablet Take 0.5 tablets by mouth every 8 hours as needed. 12/29/2023 Active 2 ml ondansetron 2 mg/ml injection (20 sources) Serotonin-3 Receptor Antagonist Start: 2023 take 4 mg intravenously every six hours as needed ondansetron, PF, (ZOFRAN) 4 mg/2 mL soln Inject 4 mg intravenously every 6 hours as needed. 12/29/2023 Active Start: 12-02-2023 End: 05-21-2024 take 1 tablet by mouth every four hours for nausea Ondansetron 4 mg tablet,disintegrating Discontinued 4 mg PO Q4H as needed for nausea December 02, 2023 12:00am May 21, 2024 1:50pm give 1st dose 30min before emetogenic chemo Start: 07-03-2019 End: 12-13-2021 take 1 tablet by mouth every eight hours as needed ondansetron (ZOFRAN) 8 mg tablet Indications: Rectal cancer (HCC) Take 1 tablet by mouth every 8 hours as needed. 20 tablet 2 07/03/2019 12/13/2021 Discontinued ondansetron HCl (ZOFRAN ORAL) Take by mouth. Active Comment on above: Take 1 tablet by vic th every 8 hours as needed. oxymetazoline hydrochloride 0.5 mg/ml nasal spray (1 source) oxymetazoline (N ELIO SPRAY 12HR,OXYMETAZOLINE) 0.05 % nasal spray Use 2 sprays in the nose two times a day. Active pantoprazole 40 mg delayed release oral tablet (20 sources) Proton Pump Inhibitor Start: take 1 tablet by mouth once daily Pantoprazole 40 mg tablet,delayed release (DR/EC) Active 40 mg PO DAILY December 01, 2023 12:00am GERD Start: 11-12-2023 End: 11-28-2023 rosuvastatin calcium 40 mg oral tablet (20 sources) HMG-CoA Reductase Inhibitor Start: 12-29-2023 take 1 tablet by mouth once daily at bedtime rosuvastatin (CRESTOR) 40 mg tablet Take 1 tablet by mouth daily at bedtime. 12/29/2023 Active Start: 03-20-2016 End: 01-31-2024 take 1 tablet by mouth at bedtime Rosuvastatin 20 mg tablet Discontinued 20 mg PO AT BEDTIME 90 3 February 13, 2023 8:38am January 31, 2024 6:07pm cholesterol Comment on above: Take 20 mg by mouth once daily. zinc oxide 0.4 mg/mg paste (20 sources) Start: 12-29-2023 zinc oxide-cod liver oil (DESITIN 40%) 40 % paste Apply 1 application to affected area as needed. 12/29/2023 Active (1 source) Start: 11-28-2023 (20 sources) Start: 11-28-2024 Start: 05-21-2024 End: 11-28-2024 Start: 05-21-2024 Start: 12-02-2023 End: 05-21-2024 Start: 11-28-2023 End: 11-28-2023 Start: 11-25-2023 End: 11-28-2023 inject 30 [IU] by subcutaneous injection every twelve hours [Order 1 Start] Name: insulin glargine-yfgn (SEMGLEE) injection 30 Units Signed Summary: 30 Units, Subcutaneous, EVERY 12 HOURS NON-STANDARD, First dose (after last modification) on [facility] 11/25/23 at 2200, Until Discontinued, Do not mix in syringe with other insulins. [Order 1 End] [Order 2 Start] Name: NOTIFY PHYSICIAN, OTHER Signed Summary: Routine, CONTINUOUS, Starting on [facility] 11/25/23 at 1217, Until Specified, Who to Notify: Ticket Clerk, Call Ticket Clerk if a.m. Glucose is less than 80 and dose reduction not already ordered. [Order 2 End] Start: 11-25-2023 End: 11-25-2023 inject 25 [IU] by subcutaneous injection every twelve hours Start: 11-25-2023 End: 11-28-2023 apply 7.5 g by subcutaneous injection once at bedtime [Order 1 Start] Name: Insulin lispro (HUMALOG) injection Signed Summary: Subcutaneous, 4 TIMES DAILY WITH MEALS & AT BEDTIME, First dose (after last modification) on [facility] 11/25/23 at 0845, Until Discontinued, Insulin to carb ratio: Non-Standard: 1 unit insulin = 5 grams carbs every meal and at bedtime Correction Factor: 151-175 = 1 unit 176-200 = 2 units 201-225 = 3 units 226-250 = 4 units 251-275 = 5 units 276-300 = 6 units 301-325 = 7 units 326-350 = 8 units 351-375 = 9 units 376-400 = 10 units Kwikpen: Prime pen before each injection; refer to Pen Priming and Care Handout for further details. Warning! Confirm patient. Insulin pen is for labeled individual patient use ONLY. [Order 1 End] [Order 2 Start] Name: Insulin lispro (HUMALOG) injection Signed Summary: Subcutaneous, NEEDED, Starting on 11/25/23 at 0843, Until Mon11/28/23 at 1622, Other, As needed for snacks, Insulin to carb ratio: Non Standard: 1 unit insulin = 5 grams carbs Correction Factor: not to be used with this order. Kwikpen: Prime pen before each injection; refer to Pen Priming and Care Handout for further details. Warning! Confirm patient. Insulin pen is for labeled individual patient use ONLY. [Order 2 End] [Order 3 Start] Name: BLOOD GLUCOSE (POC DEVICE) Signed Summary: Routine, 4 TIMES DAILY BEFORE MEALS & AT BEDTIME, First occurrence on 11/25/23 at 1030, If any Blood Glucose (POC) is greater than 300mg/dl, then repeat Blood Glucose (POC) in 2 hours. If the initial blood glucose was greater than 300mg/dl and if second blood glucose is greater than 200md/dl, then notify Ticket Clerk. [Order 3 End] [Order 4 Start] Name: BLOOD GLUCOSE (POC DEVICE) Signed Summary: Routine, DIRECTED, Starting on 11/25/23 at 0843, Until Specified, For all Blood Glucose LESS THAN 80 mg/dL, treat per Hypoglycemia in Non- Adults Clinical Practice Guideline (CPG) and recheck glucose 15 min after treatment. Repeat per CPG until glucose GREATER THAN 80 mg/dL. Once glucose IS GREATER THAN 80 mg/dL, recheck Blood Glucose every 1 hour x2, then resume as previously ordered. For Blood Glucose LESS THAN 80 mg/dL on admission OR LESS than 45 mg/dL at any time, obtain POC Blood Glucose every 4 hours for 6 occurrences AFTER treating per CPG. Obtain blood glucose for symptoms of hypoglycemia: sweating, shaking, fatigue, rapid pulse, slow thinking & dizziness. Notify physician w/results. Obtain blood glucose for symptoms of hyperglycemia: excessive thirst, blurred vision, excessive urination & tiredness. Notify physician w/results. If patient NPO, obtain POC Blood Glucose prior to administration of any insulin products. [Order 4 End] [Order 5 Start] Name: COMMUNICATION ORDER FOR NURSING CARE: For Blood Glucose LESS THAN 80 mg/dl Signed Summary: Routine, CONTINUOUS, Starting on 11/25/23 at 0844, Until Specified, For Blood Glucose LESS THAN 80 mg/dl follow Hypoglycemia in Non- Adults Clinical Practice Guideline (CPG) [Order 5 End] [Order 6 Start] Name: Dextrose 50% injection 7.5-25 g Signed Summary: 7.5-25 g, Intravenous, ADMINISTER DIRECTED, Starting on 11/25/23 at 0843, Until Mon11/28/23 at 1622, Blood glucose <80 mg/dL, For patients who are not alert, are NPO, or are on IV insulin infusion administer as directed per Hypoglycemia in Non- Adults Clinical Practice Guideline. For Blood Glucose: 60-79 mg/dL administer 7.5 gm (15ml); 45-59 mg/dL administer 12.5 gm (25ml); less than 45mg/dL administer 25gm (50ml). ++ If additional dextrose 50% needed, contact pharmacy or obtain from [employer] cart ++ [Order 6 End] [Order 7 Start] Name: glucose (GLUTOSE) 40 % oral gel 1-2 Tube Signed Summary: 1-2 Tube, Oral, ADMINISTER DIRECTED, Starting on 11/25/23 at 0843, Until Mon11/28/23 at 1622, Blood glucose <80 mg/dL, For patients who are alert, able to tolerate PO intake and with intact cognitive status administer as directed per Hypoglycemia in Non- Adults Clinical Practice Guideline. For Blood Glucose: 60-79 mg/dL administer 1 tube; 45-59 mg/dl administer 1.5 tubes; less than 45 mg/dL administer 2 tubes. Each tube of 37.5g delivers 15g of carbohydrate. [Order 7 End] [Order 8 Start] Name: NOTIFY PHYSICIAN, Blood Glucose LESS THAN 80 mg/dl Signed Summary: Routine, CONTINUOUS, Starting on 11/25/23 at 0844, Until Specified, Who to Notify: Ticket Clerk, For all Blood Glucose LESS THAN 80 mg/dl, notify Ticket Clerk after treatment per Hypoglycemia in Non- Adults Clinical Practice Guideline [Order 8 End] [Order 9 Start] Name: Carbohydrate counts with meals Signed Summary: Routine, CONTINUOUS, Starting on 11/25/23 at 0844, Until Specified, Carbohydrate counts are to be done after each patient meal and with snack. [Order 9 End] Start: 11-24-2023 End: 11-25-2023 Start: 11-23-2023 End: 11-25-2023 Start: 11-23-2023 End: 11-24-2023 Start: 11-23-2023 End: 11-28-2023 [Order 1 Start] Name: Arielle m Gluconate 10 % injection 2 g Signed Summary: 2 g, Intravenous, ADMINISTER DIRECTED, Starting on [place] 11/23/23 at 0356, Until Tu11/28/23 at 1622, See admin instructions, 1. If ionized Calcium 4.1-4.5, give 2.0 gm of Calcium Gluconate IV Push over 10 minutes 2. If Calcium less than or equal to 4.0, give 4 gm Calcium Gluconate/250 mL NS IVPB over 1 hour and recheck 1 hours after completion of infusion. Repeat labs in AM. Extravasation Risk [Order 1 End] [Order 2 Start] Name: Calcium Gluconate 4 g in Sodium chloride 0.9%, with overfill 150 mL (total volume) IVPB Signed Summary: 4 g, Intravenous, Administer over 60 Minutes, ADMINISTER DIRECTED, Starting on [place] 11/23/23 at 0356, Until Tu11/28/23 at 1622, See admin instructions, 1. If ionized Calcium 4.1-4.5, give 2.0 gm of Calcium Gluconate IV Push over 10 minutes 2. If Calcium less than or equal to 4.0, give 4 gm Calcium Gluconate/250 mL NS IVPB over 1 hour and recheck 1 hours after completion of infusion. Repeat labs in AM. Extravasation Risk [Order 2 End] Start: 11-22-2023 End: 11-23-2023 Start: 11-22-2023 End: 11-22-2023 Start: 11-21-2023 End: 11-23-2023 Start: 11-21-2023 End: 11-21-2023 Start: 11-21-2023 End: 11-28-2023 [Order 1 Start] Name: Hepari n injection 5,000 Units Signed Summary: 5,000 Units, Subcutaneous, EVERY 8 HOURS (0800/1600/2200), First dose on Mon11/21/23 at 0800, Until Discontinued [Order 1 End] [Order 2 Start] Name: PLATELET COUNT Signed Summary: Routine, EVERY 3 DAYS AM LAB, First occurrence on Mon11/21/23 at 0753, Until Specified, New collection [Order 2 End] Start: 11-16-2023 End: 11-28-2023 take 4 mg by mouth every six hours as needed [Order 1 Start] Name: Ondansetron (ZOFRAN) tablet 4 mg Signed Summary: 4 mg, Oral, EVERY 6 HOURS NEEDED, Starting on Mon11/16/23 at 1555, Until Mon11/28/23 at 1622, Nausea / Vomiting, 1st Line, Post-op/Post-Proc [Order 1 End] [Order 2 Start] Name: Ondansetron 4mg/2ml (ZOFRAN) injection 4 mg Signed Summary: 4 mg, Intravenous, EVERY 6 HOURS NEEDED, Starting on Mon11/16/23 at 1555, Until Mon11/28/23 at 1622, Nausea / Vomiting, 1st line, If patient unable to tolerate PO., Post-op/Post-Proc [Order 2 End] Start: 11-16-2023 End: 11-28-2023 [Order 1 Start] Name: Sodium-potassium phosphate (K-PHOS NEUTRAL) tablet 500-1,000 mg Signed Summary: 500-1,000 mg, Oral, ADMINISTER DIRECTED, Starting on Mon11/16/23 at 1555, Until Mon11/28/23 at 1622, See admin instructions, Administer 2 tablets if phosphate level is 2.1-2.6mg/dL. Administer 4 tablets for phosphorous level less than or equal to 2.0 mg/dL. If patient does not have enteral access, please notify /MELVINA for intravenous replacements. Replacement is primarily indicated in critically ill patients., Post-op/Post-Proc [Order 1 End] [Order 2 Start] Name: Sodium-potassium phosphate (K-PHOS NEUTRAL) tablet 500-1,000 mg Signed Summary: 500-1,000 mg, Per NG tube, ADMINISTER DIRECTED, Starting on Mon11/16/23 at 1555, Until Mon11/28/23 at 1622, See admin instructions, Administer 2 tablets if phosphate level is 2.1-2.6mg/dL. Administer 4 tablets for phosphorous level less than or equal to 2.0 mg/dL. If patient does not have enteral access, please notify /MELVINA for intravenous replacements. Replacement is primarily indicated in critically ill patients., Post-op/Post-Proc [Order 2 End] Start: 2023 End: 01-31-2024 Start: 06-22-2021 End: 03-10-2023 Start: 05-02-2019 End: 10-07-2019 Start: 03-20-2016 End: 08-17-2017 Start: 03-20-2016 End: 08-17-2017 Start: 03-20-2016 End: 08-17-2017 Start: 03-20-2016 End: 08-17-2017 Completed/Discontinued Medications Medication Drug Class(es) Dates Sig (Normalized) Sig (Original) acetaminophen 325 mg / oxyCODONE hydrochloride 5 mg oral tablet (17 sources) Opioid Agonist Start: 01-29-2021 End: 06-22-2021 Oxycodone-Acetamino phen (Endocet) 5-325 mg tablet Discontinued 1 {tbl} PO EVERY 6 HOURS as needed for pain 12 3 0 January 29, 2021 June 22, 2021 5:06pm Fracture of humerus Start: 01-29-2021 End: 06-22-2021 acetaZOLAMIDE 500 mg injecti on (1 source) Carbonic Anhydrase Inhibitor Start: 11-24-2023 End: 11-24-2023 albuterol 0.833 mg/ml / ipratropium bromide 0.167 mg/ml inhalation solution (20 sources) Anticholinergic, beta2-Adrenergic Agonist Start: 01-31-2024 End: 05-21-2024 Start: 12-29-2023 End: 05-21-2024 take 1 mL by inhalation every six hours as needed for wheezing Ipratropium-Albuterol 0.5 mg-3 mg(2.5 mg base)/3 mL solution for nebulization Discontinued 3 mL INHALATION EVERY 6 HOURS as needed for shortness of breath or wheezing January 31, 2024 12:00am May 21, 2024 1:50pm aluminum hydroxide 40 mg/ml / magnesium hydroxide 40 mg/ml / simethicone 4 mg/ml oral suspension (1 source) Start: 11-12-2023 End: 11-28-2023 take 30 mL by mouth every six hours as needed amLODIPine 10 mg oral tablet (20 sources) Dihydropyridine Calcium Channel Tian Start: 12-30-2023 End: 12-31-2024 take 1 tablet by mouth once daily Amlodipine 10 mg tablet Discontinued 10 mg PO DAILY January 31, 2024 12:00am October 18, 2024 12:44pm BLOOD PRESSURE Start: 09-23-2021 End: 01-31-2024 take 1 tablet by mouth once daily Amlodipine (Norvasc) 5 mg tablet Discontinued 5 mg PO DAILY 90 December 28, 2022 2:44pm March 12, 2023 11:06am blood pressure Comment on above: Take 5 mg by mouth o nce daily. amoxicillin 500 mg oral capsule (8 sources) Penicillin-class Antibacterial Start: 08-25-19 End: 08-27-19 take 1 capsule by mouth three times daily Amoxicillin 500 mg capsule Discontinued 500 mg PO THREE TIMES A DAY August 25, 2024 1:00am August 27, 2024 11:27am amoxicillin 875 mg / clavulanate 125 mg oral tablet (8 sources) Penicillin-class Antibacterial Start: 08-27-19 End: 10-11-19 Amoxicillin-Pot Clavulanate 875-125 mg tablet Discontinued 1 {tbl} PO TWICE A DAY 6 0 August 27, 2024 1:00am October 10, 2024 2:40am Start: 08-27-2024 End: 10-10-2024 apixaban 5 mg oral tablet (11 sources) Factor Xa Inhibitor Start: 12-01-2023 End: 03-17-2024 take 1 tablet by mouth twice daily Apixaban (Eliquis) 5 mg tablet Discontinued 5 mg PO TWICE A DAY December 01, 2023 12:00am January 31, 2024 6:06pm PCI Start: 11-17-2023 End: 11-28-2023 ascorbic acid 500 mg oral capsule (16 sources) Vitamin C Start: 12-02-2023 End: 01-31-2024 take 1 capsule by mouth once daily Ascorbic Acid (Vitamin C) 500 mg capsule Discontinued 500 mg PO DAILY December 02, 2023 12:00am January 31, 2024 6:06pm general health End: 12-13-2021 take 1 tablet by mouth once daily ascorbic acid, vitamin C, (VITAMIN C) 500 mg tablet Take 500 mg by mouth once daily. 0 12/13/2021 Discontinued Comment on above: Take 500 mg by mouth once daily. atropine sulfate 0.025 mg / diphenoxylate hydrochloride 2.5 mg oral tablet (20 sources) Anticholinergic, Cholinergic Muscarinic Antagonist, Antidiarrheal Start: 08-25-2024 End: 08-25-2024 Diphenoxylate-Atropine 2.5-0.025 mg tablet Discontinued 1 {tbl} PO 4 TIMES DAILY NEEDED as needed for diarrhea August 25, 2024 1:00am August 25, 2024 11:06pm Start: 08-25-2024 End: 08-25-2024 Start: 06-04-2024 End: 07-04-2024 take 1 tablet by mouth four times daily as needed for diarrhea diphenoxylate-atropine (LOMOTIL) 2.5-0.025 mg per tablet Indications: High output ileostomy (HCC) Take 1 tablet by mouth four times a day as needed for diarrhea (high ostomy output) for up to 30 days. 120 tablet 06/04/2024 Active bisacodyl 10 mg rectal suppo sitory (3 sources) Stimulant Laxative Start: 11-16-2023 End: 11-28-2023 Start: 07-19-2023 calcium carbonate 750 mg chewable tablet (8 sources) Start: 01-31-2024 End: 12-09-2024 take 1 tablet by mouth three times daily as needed Calcium Carbonate (Tums) 300 mg (750 mg) tablet,chewable Discontinued 300 mg PO THREE TIMES A DAY as needed for dyspepsia January 31, 2024 12:00am December 09, 2024 1:33pm calcium chloride 0.0014 meq/ml / potassium chloride 0.004 meq/ml / sodium chloride 0.103 meq/ml / sodium lactate 0.028 meq/ml injectable solution (2 sources) Start: 11-16-2023 End: 11-17-2023 Start: 11-14-2023 End: 11-14-2023 10 ml calcium gluconate 100 mg/ml injection (1 source) Start: 11-22-2023 End: 11-22-2023 castor oil 0.788 mg/mg / mongolian balsam 0.087 mg/mg topical ointment (1 source) Standardized Chemical Allergen Start: 11-16-2023 End: 11-28-2023 Cbd Oil (11 sources) Start: 05-02-2019 End: 10-07-2019 take 1 dose by mouth twice daily as needed Cbd Oil Discontinued 1 DOSE PO TWICE DAILY NEEDED May 02, 2019 7:37pm October 07, 2019 3:23pm Start: 05-02-2019 End: 10-07-2019 Cbd Oil Discontinued 1 NMA P O TWICE DAILY NEEDED as needed for FOOT PAIN May 02, 2019 12:00am October 07, 2019 3:23pm Start: 05-02-2019 End: 10-07-2019 take 1 dose by mouth twice daily as needed Cbd Oil Discontinued 1 DOSE PO TWICE DAILY NEEDED May 02, 2019 12:00am October 07, 2019 3:23pm Start: 05-02-2019 End: 10-07-2019 take 1 dose by mouth twice daily as needed Cbd Oil Discontinued 1 DOSE PO TWICE DAILY NEEDED May 01, 2019 11:00pm October 07, 2019 2:23pm ceFAZolin 2000 mg injection (1 source) Cephalosporin Antibacterial Start: 11-16-2023 End: 11-17-2023 take 2 g intravenously every eight hours cefdinir 300 mg oral capsule (17 sources) Cephalosporin Antibacterial Start: 09-29-2021 End: 10-15-2021 take 1 capsule by mouth every twelve hours Cefdinir 300 mg Capsule Discontinued 300 mg PO EVERY 12 HOURS 4 0 September 29, 2021 1:00am October 15, 2021 11:35am cephalexin 500 mg oral capsule (3 sources) Cephalosporin Antibacterial Start: 05-31-2024 End: 05-31-2024 cephALEXin 500 mg cap(s) (KEFLEX) Start: 05-31-2024 End: 05-31-2024 take 1 dose by mouth once 500 mg, ORAL, ONCE, 1 dose, On Mon05/31/24 at 1030, Antimicrobial indication: Empiric, Infectious source(s): Urinary/renal Start: 04-12-2024 End: 04-22-2024 take 1 capsule by mouth four times daily cephALEXin (KEFLEX) 500 mg capsule Indications: Urinary tract infection associated with indwelling urethral catheter, initial encounter ([facility]) ([facility]) Take 1 capsule by mouth four times daily for 10 days. 40 capsule 04/12/2024 04/22/2024 Active chlorhexidine gluconate 40 m g/ml medicated liquid soap (2 sources) Start: 07-19-2023 End: 11-28-2023 Start: 07-19-2023 chlorhexidine 4 % Liquid Indications: Peristomal hernia Apply 2 Applications topically As directed. 236 mL 0 07/19/2023 Active cholecalciferol 0.025 mg oral tablet (17 sources) Vitamin D Start: 03-20-2016 End: 08-17-2017 take 4 tablets by mouth once daily Cholecalciferol (Vitamin D3) 1,000 UNIT tablet Discontinued 4000 U PO DAILY March 20, 2016 12:00am August 17, 2017 3:22pm Start: 03-20-2016 End: 08-17-2017 cholecalciferol, vitamin D3, (VITAMIN D3 ORAL) (6 sources) End: 12-13-2021 take 2000 [IU] by mouth once daily cholecalciferol, vitamin D3, (VITAMIN D3 ORAL) Take 2,000 Units by mouth once daily. 0 12/13/2021 Discontinued take 2000 [IU] by mouth once fredrick ly cholecalciferol, vitamin D3, (VITAMIN D3 ORAL) Take 2,000 Units by mouth once daily. 0 Active Comment on above: Take 2,000 Units by mouth once daily. clotrimazole 10 mg/ml topical cream (8 sources) Azole Antifungal Start: 01-31-2024 End: 08-25-2024 Clotrimazole 1 % cream Discontinued 1 NMA TOPICAL TWICE A DAY January 31, 2024 12:00am August 25, 2024 11:06pm APPLY TOPICALLY TO HEAD OF PENIS TWICE DAILY FOR 14 DAYS. START- 01/24/24 END- 02/07/24 Drug or medicament (substance) (1 source) End: 11-28-2023 0.4 ml enoxaparin sodium 100 mg/ml prefilled syringe (1 source) Low Molecular Weight Heparin Start: 11-12-2023 End: 11-13-2023 ergocalciferol 1.25 mg oral capsule (11 sources) Provitamin D2 Compound Start: 12-01-2023 End: 01-31-2024 Ergocalciferol (Vitamin D2) 1,250 mcg (50,000 unit) capsule Discontinued 1250 ug PO DAILY December 01, 2023 12:00am January 31, 2024 6:06pm general health take 1 capsule by mouth every we ek Ergocalciferol 1.25 MG (78465 UT) capsule Take 1 capsule by mouth once a week. 0 Active FA/mv,Ca,iron,min/lycopene/l ut (MULTIVITAL ORAL) (17 sources) End: 12-29-2023 take 1 tablet by mouth once daily FA/mv,Ca,iron,min/lycopene/lut (MULTIVITAL ORAL) Take 1 tablet by mouth once daily. 0 12/29/2023 Discontinued take 1 tablet by vic th once daily FA/mv,Ca,iron,min/lycopene/lut (MULTIVIT AL ORAL) Take 1 tablet by mouth once daily. 0 Active FA/mv,Ca,iron,mi n/lycopene/lut (MULTIVITAL ORAL) Take by mouth once daily. 0 Active Comment on above: Take by mouth once d aily. Take 1 tablet by vic th once daily. Flavoring Agent (Bulk) (9 sources) Start: 03-20-2016 End: 08-17-2017 Flavoring Agent (Bulk) Discontinued 3.7 ML MC DAILY March 20, 2016 8:33pm August 17, 2017 9:55am Start: 03-20-2016 End: 08-17-2017 Flavoring Agent (Bulk) Disco ntinued 3.7 ML MC DAILY March 20, 2016 12:00am August 17, 2017 9:55am Start: 03-20-2016 End: 08-17-2017 Flavoring Agent (Bulk) Disco ntinued 3.7 ML MC DAILY March 19, 2016 11:00pm August 17, 2017 8:55am Flavoring Agent (Bulk) 3.7 ML oil (2 sources) Start: 03-20-2016 End: 08-17-2017 Flavoring Agent (Bulk) 3.7 ML oil Discontinued 3.7 mL MC DAILY March 20, 2016 12:00am August 17, 2017 9:55am fluticasone propionate 0.05 mg/actuat metered dose nasal spray (20 sources) Corticosteroid Start: 12-17-2020 End: 01-31-2024 take 50 ug nasal route once daily as needed Fluticasone Propionate (Flonase Allergy Relief) 50 mcg/actuation spray,suspension Discontinued 1 NMA INTRANASAL DAILY as needed for allergies December 17, 2020 12:00am January 31, 2024 6:06pm administer into each nostril Start: 12-17-2020 take 1 spray(s) nasa l route once daily Fluticasone Propionate (Flonase Allergy Relief) 50 mcg/actuation spray,suspension Active 1 SPRAY INTRANASAL DAILY December 17, 2020 12:00am administer into each nostril End: 06-21-2023 take 1 spray(s) nasal route once daily fluticasone (FLONASE) 50 mcg/actuation nasal spray Use 1 Lapel in each nostril once daily. 0 06/21/2023 Discontinued Comment on above: Use 1 Lapel in each nostril once daily. furosemide 40 mg oral tablet (20 sources) Loop Diuretic Start: 03-17-2025 End: 03-17-2025 take 1 tablet by mouth twice daily Furosemide (Lasix) 40 mg tablet Discontinued 40 mg PO TWICE A DAY March 17, 2025 12:00am March 17, 2025 1:29pm Start: 10-18-2024 End: 11-28-2024 take 1 tablet by mouth twice daily Furosemide 40 mg tablet Discontinued 40 mg PO TWICE DAILY 60 30 11 October 30, 2024 2:57pm November 28, 2024 12:51pm Start: 11-22-2023 End: 11-22-2023 Start: 11-22-2023 End: 11-22-2023 Start: 11-21-2023 End: 11-21-2023 Start: 11-21-2023 End: 11-21-2023 Start: 11-20-2023 End: 11-20-2023 Start: 11-19-2023 End: 11-19-2023 Start: 11-18-2023 End: 11-19-2023 Start: 11-18-2023 End: 11-18-2023 Glucosam-Chondr Msm6-Mangane se (9 sources) Start: 03-20-2016 End: 08-17-2017 Glucosam-Chondr Msm6-Mangane se Discontinued 1 EACH PO DAILY March 20, 2016 8:33pm August 17, 2017 3:23pm Start: 03-20-2016 End: 08-17-2017 Glucosam-Chondr Msm6-Mangane se Discontinued 1 EACH PO DAILY March 20, 2016 12:00am August 17, 2017 3:23pm Start: 03-20-2016 End: 08-17-2017 Glucosam-Chondr Msm6-Mangane se Discontinued 1 EACH PO DAILY March 19, 2016 11:00pm August 17, 2017 2:23pm Glucosam-Chondr Msm6-Manganese 1 EACH capsule (2 sources) Start: 03-20-2016 End: 08-17-2017 take 1 capsule by mouth once daily Glucosam-Chondr Msm6-Manganese 1 EACH capsule Discontinued 1 NMA PO DAILY March 20, 2016 12:00am August 17, 2017 3:23pm 250 ml heparin sodium, porcine 100 unt/ml injection (4 sources) Unfractionated Heparin, Anti-coagulant Start: 11-18-2023 End: 11-21-2023 Start: 11-18-2023 End: 11-18-2023 Start: 11-13-2023 End: 11-14-2023 hydrALAZINE hydrochloride 10 mg oral tablet (18 sources) Arteriolar Vasodilator Start: 03-17-2025 End: 03-17-2025 take 1 tablet by mouth four times daily Hydralazine 10 mg tablet Discontinued 10 mg PO .qid March 17, 2025 12:00am March 17, 2025 1:29pm Start: 10-18-2024 End: 11-28-2024 take 1 tablet by mouth four times daily Hydralazine 10 mg tablet Discontinued 10 mg PO 4 TIMES DAILY 120 30 11 October 30, 2024 2:57pm November 28, 2024 12:52pm Start: 11-20-2023 End: 11-28-2023 take 5 mg intravenously every six hours as needed Start: 11-16-2023 End: 11-16-2023 hydroCHLOROthiazide 12.5 mg oral capsule (20 sources) Thiazide Diuretic Start: 08-17-2017 End: 10-07-2019 take 1 capsule by mouth once daily Hydrochlorothiazide 12.5 mg capsule Discontinued 12.5 mg PO DAILY 90 3 February 27, 2019 6:39am October 07, 2019 3:24pm 1 ml HYDROmorphone hydrochloride 1 mg/ml cartridge (1 source) Opioid Agonist Start: 11-16-2023 End: 11-16-2023 3 ml insulin aspart, human 100 unt/ml pen injector (20 sources) Insulin Analog Start: 04-02-2018 End: 04-02-2018 Insulin Aspart U-100 (Novolog Flexpen U-100 Insulin) 100 unit/mL insulin pen Discontinued 17 U SC THREE TIMES A DAY April 02, 2018 10:05am April 02, 2018 10:10am Start: 03-20-2016 End: 04-02-2018 Insulin Aspart U-100 (Novolo g Flexpen U-100 Insulin) 100 unit/mL insulin pen Discontinued 15 U SC THREE TIMES A DAY August 17, 2017 1:00am April 02, 2018 9:57am Start: 03-20-2016 End: 08-17-2017 Insulin Aspart U-100 100 UNI TS/ML insulin pen Discontinued 15 U SC 3 TIMES DAILY WITH MEALS March 20, 2016 12:00am August 17, 2017 9:51am Start: 03-20-2016 End: 04-02-2018 3 ml insulin detemir 100 unt/ml pen injector (20 sources) Insulin Analog Start: 12-17-2020 End: 2023 Insulin Detemir U-100 100 unit/mL (3 mL) insulin pen Discontinued 50 U SC TWICE A DAY December 17, 2020 1:38pm 2023 5:21pm blood sugar Start: 05-02-2019 End: 12-17-2020 Insulin Detemir U-100 100 UN ITS/ML insulin pen Discontinued 70 U SC AT BEDTIME May 02, 2019 7:40pm December 17, 2020 1:38pm Start: 05-02-2019 End: 12-17-2020 Insulin Detemir U-100 Discon tinued 70 UNIT SC AT BEDTIME May 02, 2019 7:40pm December 17, 2020 1:38pm Start: 08-17-2017 End: 05-02-2019 Insulin Detemir U-100 (Levem ir Flextouch U100 Insulin) 100 unit/mL (3 mL) insulin pen Discontinued 70 U SC EVERY MORNING 75 3 April 02, 2018 10:12am May 02, 2019 7:40pm Type 2 diabetes mellitus with ketoacidosis without coma Start: 03-20-2016 End: 08-17-2017 Insulin Detemir U-100 100 UN ITS/ML insulin pen Discontinued 50 U SC AT BEDTIME March 20, 2016 12:00am August 17, 2017 9:51am Start: 03-20-2016 End: 2023 Start: 03-20-2016 End: 08-17-2017 Insulin Detemir U-100 Discon tinued 50 UNITS SC AT BEDTIME March 20, 2016 12:00am August 17, 2017 9:51am Comment on above: Inject 70 Units subc utaneously daily at bedtime. 3 ml insulin glargine 100 unt/ml pen injector (20 sources) Insulin Analog Start: 01-31-2024 End: 05-21-2024 Insulin Glargine 100 unit/mL (3 mL) insulin pen Discontinued 36 U SC DAILY January 31, 2024 12:00am May 21, 2024 1:49pm Start: 12-29-2023 End: 05-21-2024 inject 30 [IU] by subcutaneous injection once daily in the morning insulin glargine 100 unit/mL (3 mL) Inject 30 Units subcutaneously every morning. 12/29/2023 Active Start: 11-28-2023 End: 11-28-2023 insulin glargine-yfgn (SEMGLEE) injection 40 Units (1 source) Start: 11-12-2023 End: 11-19-2023 insulin glargine-yfgn (SEMGLEE,INSULIN GLARG-YFGN,PEN SUBCUTANEOUS) (4 sources) End: 12-29-2023 inject 50 [IU] by subcutaneous injection twice daily insulin glargine-yfgn (SEMGLEE,INSULIN GLARG-YFGN,PEN SUBCUTANEOUS) Inject 50 Units subcutaneously two times a day. 0 12/29/2023 Discontinued inject 50 [IU] by hardy bcutaneous injection twice daily insulin glargine-yfgn (SEMGLEE,INSULIN GLARG-YFGN,PEN SUBCUTANEOUS) Inject 50 Units subcutaneously two times a day. 0 Active Comment on above: Inject 50 Units subc utaneously two times a day. Insulin Glargine-Yfgn [Insulin Glargine-Yfgn 100 Unit/Ml (3 Ml) Subcutaneous Pen] (Insulin Glargine-Yfgn 100 Unit/Ml (3 Ml) Subcutaneous ) 100 unit/mL (3 mL) insulin pen (5 sources) Start: 2023 End: 01-31-2024 Insulin Glargine-Yfgn [Insulin Glargine-Yfgn 100 Unit/Ml (3 Ml) Subcutaneous Pen] (Insulin Glargine-Yfgn 100 Unit/Ml (3 Ml) Subcutaneous ) 100 unit/mL (3 mL) insulin pen Discontinued 25 U SC TWICE A DAY 2023 12:00am January 31, 2024 6:06pm diabetes Start: 2023 Insulin Glargi ne-Yfgn [Insulin Glargine-Yfgn 100 Unit/Ml (3 Ml) Subcutaneous Pen] (Insulin Glargine-Yfgn 100 Unit/Ml (3 Ml) Subcutaneous ) 100 unit/mL (3 mL) insulin pen Active 25 UNIT SC TWICE A DAY 2023 12:00am Start: 2023 inject 3 mL by subcu taneous injection twice daily Insulin Glargine-Yfgn [Insulin Glargine-Yfgn 100 Unit/Ml (3 Ml) Subcutaneous Pen] (Insulin Glargine-Yfgn 100 Unit/Ml (3 Ml) Subcutaneous ) 100 unit/mL (3 mL) insulin pen Active 50 UNIT SC TWICE A DAY 2023 12:00am Insulin [place], Disposable, (GERTRUDE PEN NEEDLE) 32 x 5/32 Ndle (14 sources) Start: 01-22-2013 End: 06-21-2023 Insulin [place], Disposable, (GERTRUDE PEN NEEDLE) 32 x 5/32 Ndle Indications: Diabetes mellitus type 2, uncontrolled 5 times a day 150 Each 01/22/2013 06/21/2023 Discontinued Start: 01-22-2013 Insulin Needle s, Disposable, (GERTRUDE PEN NEEDLE) 32 x 5/32 Ndle Indications: Diabetes mellitus type 2, uncontrolled 5 times a day 150 Each 01/22/2013 Active Comment on above: 5 times a day lidocaine hydrochloride 0.02 mg/mg topical gel (20 sources) Antiarrhythmic, Amide Local Anesthetic Start: 05-31-2024 End: 05-31-2024 lidocaine urojet 2 % 11 mL topical gel (GLYDO) Start: 05-31-2024 End: 05-31-2024 11 mL, URETHRAL, ONCE (UP TO 30 DAYS AMB), 1 dose, On Mon05/31/24 at 1030, FOR EXTERNAL USE ONLY APPLY TO: urethral Start: 12-29-2023 apply 1 dose transde rmal route once daily lidocaine (SALONPAS) 4 % patch Apply 1 Patch as directed once daily. 12/29/2023 Active lisinopril 10 mg oral tablet (20 sources) Angiotensin Converting Enzyme Inhibitor Start: 11-28-2024 End: 12-09-2024 take 1 tablet by mouth once daily Lisinopril 10 mg Tablet Discontinued 10 mg PO DAILY 0 0 November 28, 2024 12:00am December 09, 2024 1:33pm Start: 09-23-2021 End: 06-21-2023 take 1 tablet by mouth once daily Lisinopril 5 mg tablet Discontinued 5 mg PO DAILY 90 3 September 26, 2022 5:45pm March 12, 2023 11:11am blood pressure Start: 06-11-2019 End: 12-13-2021 take 1 tablet by mouth once daily Lisinopril 2.5 MG tablet Discontinued 2.5 mg PO DAILY January 09, 2020 12:00am January 11, 2020 10:08am bp Start: 08-17-2017 End: 11-12-2023 take 1 tablet by mouth once daily Lisinopril 10 mg tablet Discontinued 10 mg PO DAILY 90 3 February 26, 2019 12:00am October 09, 2019 12:08pm Comment on above: Take 1 tablet by vic th once daily. Take 5 mg by mouth o nce daily. magnesium oxide 400 mg oral capsule (20 sources) Start: 12-01-2023 End: 01-31-2024 take 1 capsule by mouth once daily Magnesium Oxide 400 mg magnesium capsule Discontinued 400 mg PO DAILY December 01, 2023 12:00am January 31, 2024 6:06pm heart health Start: 03-10-2023 End: 2023 take 1 tablet by mouth twice daily Magnesium Oxide 400 mg magnesium tablet Discontinued 400 mg PO TWICE A DAY March 10, 2023 12:00am 2023 5:21pm supplement take 1 tablet by vic th once daily magnesium oxide 400 MG tablet Take 1 tablet by mouth daily. 0 Active 50 ml magnesium sulfate 80 m g/ml injection (3 sources) Start: 11-23-2023 End: 11-28-2023 Start: 11-16-2023 End: 11-23-2023 menthol 0.04 mg/mg topical gel (8 sources) Start: 01-31-2024 End: 08-25-2024 Menthol (Biofreeze (Menthol)) 4 % gel Discontinued 1 NMA TOPICAL TWICE A DAY as needed for pain January 31, 2024 12:00am August 25, 2024 11:07pm 24 hr metFORMIN hydrochloride 500 mg extended release oral tablet (8 sources) Biguanide Start: 08-25-2024 End: 11-28-2024 take 1 tablet by mouth twice daily Metformin 500 mg tablet extended release 24 hr Discontinued 500 mg PO TWICE A DAY August 25, 2024 1:00am November 28, 2024 12:55pm diabetes metoprolol tartrate 25 mg oral tablet (20 sources) beta-Adrenergic Tian Start: 05-02-2019 End: 09-26-2019 Metoprolol Tartrate 25 MG tablet Discontinued 12.5 mg PO TWICE A DAY May 02, 2019 12:00am September 26, 2019 3:36pm Start: 05-02-2019 End: 09-26-2019 Start: 10-01-2018 End: 10-01-2018 Metoprolol Tartrate 25 mg ta blet Discontinued 12.5 mg PO TWICE A DAY 90 3 October 01, 2018 1:00am October 01, 2018 2:23pm Start: 08-17-2017 End: 08-13-2018 Metoprolol Tartrate 25 mg ta blet Discontinued 12.5 mg PO TWICE A DAY 90 3 August 13, 2018 10:46am August 13, 2018 10:49am Start: 08-17-2017 End: 10-01-2018 Start: 03-20-2016 End: 08-17-2017 take 2 tablets by mouth twice daily Metoprolol Succinate 25 MG tablet extended release 24 hr Discontinued 12.5 mg PO TWICE A DAY March 20, 2016 12:00am August 17, 2017 9:56am Start: 03-20-2016 End: 08-17-2017 metroNIDAZOLE 500 mg oral tablet (2 sources) Nitroimidazole Antimicrobial Start: 07-19-2023 End: 11-28-2023 mirtazapine 15 mg oral tablet (17 sources) Start: 02-09-2024 End: 10-10-2024 take 1 tablet by mouth at bedtime Mirtazapine 15 mg Tablet Discontinued 15 mg PO AT BEDTIME 0 0 February 09, 2024 12:00am October 10, 2024 2:41am Start: 02-09-2024 End: 10-10-2024 Start: 12-01-2023 End: 02-09-2024 take 1 tablet by mouth at bedtime Mirtazapine 7.5 mg tablet Discontinued 7.5 mg PO AT BEDTIME December 01, 2023 12:00am February 09, 2024 4:19pm anxiety Start: 12-01-2023 End: 02-09-2024 neomycin sulfate 500 mg oral tablet (2 sources) Aminoglycoside Antibacterial Start: 07-19-2023 End: 11-28-2023 24 hr niacin 500 mg extended release oral tablet (17 sources) Nicotinic Acid Start: 03-20-2016 End: 08-17-2017 take 1 tablet by mouth once daily Niacin 500 MG tablet extended release 24 hr Discontinued 500 mg PO DAILY March 20, 2016 12:00am August 17, 2017 9:56am nitrofurantoin, macrocrystals 25 mg / nitrofurantoin, monohydrate 75 mg oral capsule (8 sources) Nitrofuran Antibacterial Start: 01-31-2024 End: 02-09-2024 take 1 capsule by mouth twice daily at mealtime Nitrofurantoin Monohyd/M-Cryst (Macrobid) 100 mg capsule Discontinued 100 mg PO TWICE A DAY January 31, 2024 12:00am February 09, 2024 4:19pm must administer with a meal/food nitroglycerin 0.4 mg sublingual tablet (17 sources) Nitrate Vasodilator Start: 10-15-2021 End: 01-31-2024 Nitroglycerin 0.4 mg tablet, sublingual Discontinued 0.4 mg SL Q5M as needed for chest pain 29 10October 15, 2021 1:00am January 31, 2024 6:06pm do not exceed 3 doses per episode Start: 10-15-2021 End: 01-31-2024 Start: 10-15-2021 Nitroglycerin Active 0.4 MG SL Q5M October 15, 2021 1:00am do not exceed 3 doses per episode Nut.Tx.Gluc Intol,Lf,Soy-Fiber (Boost Glucose Control) 0.07-0.8 gram-kcal/mL liquid (2 sources) Start: 12-02-2023 End: 05-21-2024 take 1 mL by mouth three times daily Nut.Tx.Gluc Intol,Lf,Soy-Fiber (Boost Glucose Control) 0.07-0.8 gram-kcal/mL liquid Discontinued 120 mL PO THREE TIMES A DAY December 02, 2023 12:00am May 21, 2024 1:50pm diabetes omeprazole 40 mg delayed release oral capsule (20 sources) Proton Pump Inhibitor Start: 01-09-2020 End: 12-29-2023 take 1 capsule by mouth once daily Omeprazole 40 MG capsule,delayed release(DR/EC) Discontinued 40 mg PO DAILY January 09, 2020 12:00am December 01, 2023 10:46pm gerd Start: 03-20-2016 End: 01-09-2020 take 1 capsule by mouth once daily Omeprazole 20 mg capsule,delayed release(DR/EC) Discontinued 20 mg PO DAILY 90 3 September 26, 2019 3:36pm January 09, 2020 12:59pm Comment on above: TAKE 1 CAPSULE DAILY oxyCODONE hydrochloride 5 mg oral tablet (20 sources) Opioid Agonist Start: End: take 2.5 mg by mouth every six hours as needed for pain Oxycodone 5 mg tablet Discontinued 2.5 mg PO EVERY 6 HOURS as needed for pain 14 7 0 March 21, 2024 March 27, 2024 12:00am March 28, 2024 12:04am Right shoulder pain Pain in right shoulder Start: 03-11-2024 End: 03-18-2024 take 1 tablet by mouth every six hours as needed for pain Oxycodone 5 mg tablet Discontinued 5 mg PO EVERY 6 HOURS as needed for pain 20 7 0 March 11, 2024 March 17, 2024 12:00am March 18, 2024 12:04am Right shoulder pain Pain in right shoulder Start: 01-31-2024 End: 02-09-2024 take 2.5 mg by mouth every six hours as needed for pain Oxycodone 5 mg tablet Discontinued 2.5 mg PO EVERY 6 HOURS as needed for pain 0 January 31, 2024 12:00am February 09, 2024 4:20pm Start: 01-13-2024 End: 01-27-2024 take 0.5 tablet by mouth every six hours as needed for pain Oxycodone 5 mg tablet Discontinued 5 mg PO As Directed as needed for pain 20 14 0 January 13, 2024 January 26, 2024 12:00am January 27, 2024 12:15am Small bowel obstruction History of abdominal surgery Other specified postprocedural states 1/2 (2.5mg) tab p.o. every 6 hours as needed for pain. Start: 01-13-2024 End: 01-27-2024 Start: 12-29-2023 End: 01-08-2024 take 2.5 mg by mouth every six hours as needed oxyCODONE IR (ROXICODONE) 5 mg immediate release tablet Take 0.5 tablets by mouth every 6 hours as needed for up to 10 days. 0 12/29/2023 01/08/2024 Active Start: 11-16-2023 End: 11-28-2023 take 5 mg by mouth every four hours as needed phenol 14 mg/ml mucosal spray (1 source) Start: 11-17-2023 End: 11-28-2023 piperacillin 3000 mg / tazobactam 375 mg injection (20 sources) Penicillin-class Antibacterial, beta Lactamase Inhibitor Start: 01-01-2024 End: 12-31-2024 piperacillin-tazobactam (ZOSYN) 3.375 gram/50 mL in dextrose (iso-osmotic) Inject 50 mL intravenously every 6 hours. Patient should start on January 01, 2024. 01/01/2024 12/31/2024 Discontinued (Course of therapy completed) polyethylene glycol 3350 25711 mg powder for oral solution (11 sources) Osmotic Laxative Start: 12-02-2023 End: 01-31-2024 Polyethylene Glycol 3350 (Miralax) 17 gram/dose powder Discontinued 17 g PO DAILY December 02, 2023 12:00am January 31, 2024 6:06pm constipation Start: 07-19-2023 End: 11-28-2023 Start: 07-19-2023 Polyethylene g lycol 17 GM/SCOOP Powder powder Indications: Peristomal hernia 11 AM: Take entire contents over 2 hours as instructed. 255 g 0 07/19/2023 Active polyethylene glycol 400 4 mg /ml / propylene glycol 3 mg/ml ophthalmic solution (14 sources) Start: 03-10-2023 End: 01-31-2024 Peg 400-Propylene Glycol (Pf ) (Lubricant Eye (Pg-Peg 400)(Pf)) 0.4-0.3 % dropperette Discontinued 1 NMA EACH EYE DAILY as needed for dry eye(s) March 10, 2023 12:00am January 31, 2024 6:06pm Start: 03-10-2023 End: 01-31-2024 Start: 03-10-2023 Peg 400-Propyl salo Glycol (Pf) (Lubricant Eye (Pg-Peg 400)(Pf)) 0.4-0.3 % dropperette Active 1 DRP EACH EYE DAILY March 10, 2023 12:00am microencapsulated potassium chloride 20 meq extended release oral tablet (13 sources) Start: 08-25-2024 End: 10-18-2024 Potassium Chloride (Klor-Con M20) 20 mEq tablet,ER particles/crystals Discontinued 20 meq PO DAILY August 25, 2024 1:00am October 18, 2024 12:44pm Start: 11-19-2023 End: 11-28-2023 Start: 11-17-2023 End: 11-17-2023 Start: 11-16-2023 End: 11-19-2023 12 hr ranolazine 500 mg extended release oral tablet (20 sources) Anti-anginal Start: 02-19-2018 End: 03-05-2018 take 1 tablet by mouth every twelve hours Ranolazine (Ranexa) 500 mg tablet extended release 12 hr Discontinued 500 mg PO Q12H February 19, 2018 12:00am March 05, 2018 1:10pm Start: 03-20-2016 End: 08-17-2017 take 1 tablet by mouth every twelve hours Ranolazine (Ranexa) 500 mg tablet extended release 12 hr Discontinued 500 mg PO Q12H August 17, 2017 1:00am August 17, 2017 3:26pm Start: 03-20-2016 End: 08-17-2017 take 1 tablet by mouth twice daily Ranolazine 500 MG tablet Discontinued 500 mg PO TWICE A DAY March 20, 2016 12:00am August 17, 2017 9:56am rivaroxaban 20 mg oral tablet (1 source) Factor Xa Inhibitor Start: 11-17-2023 End: 11-17-2023 royal jelly 500 mg oral capsule (17 sources) Start: 03-20-2016 End: 08-17-2017 take 1 capsule by mouth once daily [place]eland Jelly 500 MG capsule Discontinued 675 mg PO DAILY March 20, 2016 12:00am August 17, 2017 3:25pm Start: 03-20-2016 End: 08-17-2017 Saw [place] (9 sources) Start: 03-20-2016 End: 08-17-2017 take 900 mg by mouth once daily Saw [place] Discontinued 900 MG PO DAILY March 20, 2016 8:33pm August 17, 2017 3:25pm Start: 03-20-2016 End: 08-17-2017 take 900 mg by mouth once daily [place] Discontinued 900 MG PO DAILY March 20, 2016 12:00am August 17, 2017 3:25pm Start: 03-20-2016 End: 08-17-2017 take 900 mg by mouth once daily [place] Discontinued 900 MG PO DAILY March 19, 2016 11:00pm August 17, 2017 2:25pm Saw [place] 80 MG capsule (2 sources) Start: 03-20-2016 End: 08-17-2017 take 1 capsule by mouth once daily [place] 80 MG capsule Discontinued 900 mg PO DAILY March 20, 2016 12:00am August 17, 2017 3:25pm simethicone 125 mg chewable tablet (8 sources) Start: 01-31-2024 End: 11-24-2024 take 1 tablet by mouth four times daily as needed Simethicone 125 mg tablet,chewable Discontinued 125 mg PO 4 TIMES DAILY as needed for abdominal distention January 31, 2024 12:00am November 24, 2024 9:23pm sodium chloride 0.111 meq/ml nasal spray (20 sources) Start: 01-31-2024 End: 03-17-2025 Sodium Chloride ([place] Saline) 0.65 % aerosol,spray Discontinued 2 NMA INTRANASAL Q4H as needed for dry nasal passages January 31, 2024 12:00am March 17, 2025 1:24pm while awake Start: 01-31-2024 Start: 12-02-2023 End: 10-18-2024 Sodium Chloride 0.9 % parent eral solution Discontinued 100 NMA IV .continuous December 02, 2023 12:00am October 18, 2024 8:07am fluid imbalance Start: 12-02-2023 End: 10-18-2024 Start: 11-21-2023 End: 11-21-2023 Start: 11-21-2023 End: 11-21-2023 Start: 11-12-2023 End: 11-13-2023 Start: 11-12-2023 End: 11-12-2023 sulfamethoxazole 800 mg / trimethoprim 160 mg oral tablet (1 source) Dihydrofolate Reductase Inhibitor Antibacterial, Sulfonamide Antimicrobial Start: 04-12-2024 End: 04-12-2024 take 1 tablet by mouth twice daily sulfamethoxazole-trimethoprim (BACTRIM DS) 800-160 mg per tablet Indications: Urinary tract infection associated with indwelling urethral catheter, initial encounter ([facility]) ([facility]) Take 1 tablet by mouth two times a day for 10 days. 20 tablet 04/12/2024 04/12/2024 Discontinued tamsulosin hydrochloride 0.4 mg oral capsule (20 sources) alpha-Adrenergic Tian Start: 01-31-2024 End: 10-30-2024 take 2 capsules by mouth at bedtime Tamsulosin (Flomax) 0.4 mg capsule Discontinued 0.8 mg PO AT BEDTIME January 31, 2024 12:00am October 30, 2024 2:26pm prostate Start: 01-12-2024 End: 12-31-2024 take 0.8 mg by mouth once daily tamsulosin (FLOMAX) 0.4 mg Take 0.8 mg by mouth once daily. 01/12/2024 12/31/2024 Discontinued (Course of therapy completed) Start: 11-24-2023 End: 11-28-2023 Testosterone (11 sources) Androgen Start: 03-20-2016 End: 08-17-2017 apply 30 mg topically once daily Axiron Discontinued 30 MG TOPICAL DAILY March 20, 2016 8:33pm August 17, 2017 9:55am Start: 03-20-2016 End: 08-17-2017 apply 30 mg topically once daily Axiron Discontinued 3 0 mg TOPICAL DAILY March 20, 2016 12:00am August 17, 2017 9:55am Start: 03-20-2016 End: 08-17-2017 apply 30 mg topically once daily Axiron Discontinued 3 0 MG TOPICAL DAILY March 20, 2016 12:00am August 17, 2017 9:55am Start: 03-20-2016 End: 08-17-2017 apply 30 mg topically once daily Axiron Discontinued 3 0 MG TOPICAL DAILY March 19, 2016 11:00pm August 17, 2017 8:55am 200 ml vancomycin 5 mg/ml in jection (1 source) Glycopeptide Antibacterial Start: 11-16-2023 End: 11-16-2023 (2 sources) Start: 11-21-2023 End: 11-21-2023 Start: 11-21-2023 End: 11-21-2023 (2 sources) Start: 11-14-2023 End: 11-14-2023 Start: 11-14-2023 End: 11-14-2023 (1 source) Start: 11-14-2023 End: 11-14-2023 (1 source) Start: 11-12-2023 End: 11-12-2023 Problems Active Problems Problem Classification Problem Date Documented Da te Episodic/Chronic Abdominal hernia (20 sources) Parastomal hernia; Translations: [Parastomal hernia without obstruction or gangrene] Onset: 4 Episodic Acute and unspecified renal failure (11 sources) Uremia; Translations: [Unspecified kidney failure] Onset: 5 11-24-2024 Chronic Acute cerebrovascular disease (20 sources) Cerebrovascular accident; Translations: [Cerebral infarction, unspecified] Onset: 4 05-02-2019 Chronic Comment on above: cerebellar strokeRig ht endarterectomy Acute myocardial infarction (20 sources) Myocardial infarction; Translations: [Non-ST elevation (NSTEMI) myocardial infarction] Onset: 4 Chronic Anxiety disorders (20 sources) Anxiety disorder; Translations: [Anxiety disorder, unspecified] Onset: 0 05-27-2020 Chronic Aortic; peripheral; and visceral artery aneurysms (11 sources) Dissection of carotid artery; 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 Bacterial infection; unspecified site (20 sources) Infection due to enterococcus; Translations: [Streptococcal infection, unspecified site] Onset: 4 12-18-2023 Episodic Blindness and vision defects (11 sources) Visual hallucinations; Translations: [Visual hallucinations] 2023 Episodic Cancer of rectum and anus (20 sources) Malignant tumor of rectum; Translations: [Malignant neoplasm of rectum] Onset: 9 Chronic Cardiac dysrhythmias (3 sources) Paroxysmal atrial fibrillation; Translations: [Paroxysmal atrial fibrillation] Onset: 4 11-17-2023 Chronic Chronic kidney disease (20 sources) Chronic renal insufficiency; Translations: [Chronic kidney disease, unspecified] Onset: 0 05-26-2020 Chronic Complication of device; implant or graft (20 sources) 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; Translations: [Arteriosclerosis of coronary artery bypass graft] Onset: 5 Chronic Congestive heart failure; nonhypertensive (20 sources) Congestive heart failure; Translations: [Unspecified combined systolic (congestive) and diastolic (congestive) heart failure] Onset: 5 10-14-2024 Chronic Coronary atherosclerosis and other heart disease (20 sources) Intermediate coronary syndrome; Translations: [Ischemic myocardial dysfunction] Onset: 5 Chronic Coronary atherosclerosis and other heart disease (14 sources) Presence of coronary angioplasty implant and graft; Translations: [Percutaneous transluminal coronary angioplasty status] Onset: 8 07-15-2022 Episodic Deficiency and other anemia (8 sources) Normocytic anemia; Translations: [Anemia, unspecified] 02-01-2024 Episodic Delirium, dementia, and amnestic and other cognitive disorders (20 sources) Frail elderly; Translations: [Age-related physical debility] Onset: 4 03-11-2024 Chronic Diabetes mellitus with complications (20 sources) Type II diabetes mellitus uncontrolled; Translations: [Diabetes mellitus type 2, uncontrolled] Onset: 3 05-27-2020 Chronic Diabetes mellitus without complication (20 sources) Diabetes mellitus without mention of complication, type II or unspecified type, not stated as uncontrolled; Translations: [Type 2 diabetes mellitus] Onset: 5 05-02-2019 Chronic Disorders of lipid metabolism (20 sources) Other and unspecified hyperlipidemia; Translations: [Dyslipidemia] Onset: 3 Chronic E Codes: Fall (10 sources) Fall; Translations: [Unspecified fall, initial encounter] 11-29-2023 Episodic Esophageal disorders (20 sources) Gastroesophageal reflux disease; Translations: [Gastro-esophageal reflux disease without esophagitis] Onset: 0 05-27-2020 Chronic Essential hypertension (20 sources) Unspecified essential hypertension; Translations: [Hypertensive disorder] Onset: 3 Chronic Fluid and electrolyte disorders (20 sources) Acute hypokalemia; Translations: [Hypokalemia] Onset: 4 Resolved: 4 2023 Episodic Fracture of upper limb (17 sources) Fracture of humerus ; Translations: [Unspecified fracture of shaft of humerus, unspecified arm, initial encounter for closed fracture] 01-29-2021 Episodic Genitourinary symptoms and ill-defined conditions (5 sources) Urge incontinence of urine; Translations: [Urge incontinence] Onset: 5 05-02-2024 Chronic Headache; including migraine (17 sources) Headache; Translations: [Headache] 10-01-2021 Episodic Intestinal obstruction without hernia (20 sources) Intestinal obstruction co-occurrent and due to decreased peristalsis; Translations: [Ileus, unspecified] Onset: 4 Resolved: 4 12-20-2023 Episodic Intracranial injury (17 sources) Traumatic brain injury with loss of consciousness; Translations: [Unspecified intracranial injury with loss of consciousness of unspecified duration, initial encounter] 05-02-2019 Episodic Nonspecific chest pain (20 sources) Chest pain, unspecified; Translations: [Chest pain] Onset: 5 10-17-2021 Episodic Nutritional deficiencies (20 sources) Deficiency of macronutrients; Translations: [Unspecified severe protein-calorie malnutrition] Onset: 4 12-04-2023 Chronic Occlusion or stenosis of precerebral arteries (20 sources) Occlusion and stenosis of carotid artery without mention of cerebral infarction; Translations: [Carotid artery occlusion] Onset: 5 05-11-2015 Chronic Other circulatory disease (17 sources) Disorder of carotid artery; Translations: [Disorder of arteries and arterioles, unspecified] 12-17-2020 Chronic Other circulatory disease (14 sources) Orthostatic hypotension; Translations: [Orthostatic hypotension] 03-10-2023 Episodic Other circulatory disease (2 sources) Orthostatic hypotension; Translations: [Orthostatic hypotension] 03-10-2023 Episodic Other diseases of kidney and ureters (2 sources) Renal impairment; Translations: [Disorder of kidney and ureter, unspecified] 12-11-2024 Episodic Other fractures (17 sources) Fracture of seventh cervical vertebra; Translations: [Unspecified displaced fracture of seventh cervical vertebra, initial encounter for closed fracture] 08-31-2013 Episodic Other gastrointestinal disorders (20 sources) Colostomy present; Translations: [Colostomy status] Onset: 0 05-27-2020 Chronic Other gastrointestinal disorders (9 sources) Ileostomy present; Translations: [Encounter for attention to ileostomy] 05-03-2024 Chronic Other gastrointestinal disorders (1 source) Ileostomy status; Translations: [High output ileostomy (HCC)] Onset: 4 Chronic Other gastrointestinal disorders (3 sources) High output ileostomy; Translations: [Other specified symptoms and signs involving the digestive system and abdomen] 06-04-2024 Episodic Other gastrointestinal disorders (6 sources) Diarrhea; Translations: [Diarrhea, unspecified] 11-24-2024 Episodic Other liver diseases (8 sources) Elevated liver enzymes level; Translations: [Abnormal levels of other serum enzymes] 01-31-2024 Episodic Other lower respiratory disease (17 sources) Restrictive lung disease; Translations: [Other disorders of lung] 02-19-2018 Episodic Other lower respiratory disease (17 sources) Hypoxia; Translations: [Hypoxemia] 10-01-2021 Episodic Other lower respiratory disease (1 source) Hypoxemia; Translations: [Hypoxemia] Episodic Other lower respiratory disease (1 source) Dyspnea on exertion; Translations: [Other forms of dyspnea] 11-14-2023 Episodic Other nervous system disorders (1 source) Unspecified hereditary and idiopathic peripheral neuropathy; Translations: [IDIO PERIPH NEURPTHY NOS] Onset: 5 Chronic Other nervous system disorders (20 sources) Neuropathy; Translations: [Polyneuropathy, unspecified] Onset: 0 05-27-2020 Chronic Other nervous system disorders (1 source) Unable to walk; Translations: [Difficulty in walking, not elsewhere classified] 03-11-2024 Chronic Other nervous system disorders (11 sources) Numbness of face; Translations: [Anesthesia of skin] 2023 Episodic Other non-traumatic joint disorders (8 sources) Pain in right shoulder; Translations: [Right shoulder pain] 03-11-2024 Episodic Other nutritional; endocrine; and metabolic disorders (20 sources) Hypophosphatemia; Translations: [Other disorders of phosphorus metabolism] Onset: 4 12-19-2023 Chronic Other nutritional; endocrine; and metabolic disorders (20 sources) Hypomagnesemia; Translations: [Hypomagnesemia] Onset: 4 12-19-2023 Chronic Peripheral and visceral atherosclerosis (20 sources) Peripheral vascular disease, unspecified; Translations: [Peripheral vascular disease] Onset: 5 05-27-2020 Chronic Pleurisy; pneumothorax; pulmonary collapse (8 sources) Pleural effusion; Translations: [Pleural effusion, not elsewhere classified] 10-10-2024 Episodic Residual codes; unclassified (20 sources) Obstructive sleep apnea syndrome; Translations: [Obstructive sleep apnea (adult) (pediatric)] Onset: 0 05-27-2020 Chronic Residual codes; unclassified (20 sources) Altered mental status; Translations: [Altered mental status, unspecified] 10-01-2021 Episodic Residual codes; unclassified (1 source) Altered mental status, unspecified; Translations: [Altered mental status] Episodic Respiratory failure; insufficiency; arrest (adult) (20 sources) Ventilator finding; Translations: [Dependence on respirator [ventilator] status] Onset: 4 12-19-2023 Chronic Spondylosis; intervertebral disc disorders; other back problems (20 sources) Spinal stenosis, unspecified region; Translations: [Spinal stenosis] Onset: 5 10-06-2015 Episodic Superficial injury; contusion (10 sources) Contusion of hip; Translations: [Contusion of unspecified hip, initial encounter] 11-29-2023 Episodic Syncope (16 sources) Near syncope; Translations: [Syncope and collapse] 03-10-2023 Episodic Transient cerebral ischemia (17 sources) Transient cerebral ischemia; Translations: [Transient cerebral ischemic attack, unspecified] 10-30-2019 Chronic Unclassified (1 source) Obstructive sleep apnea (adult)(pediatric); Translations: [OBSTRUCTIVE SLEEP APNEA] Onset: 5 Chronic Unclassified (10 sources) 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 Unclassified (10 sources) PTCA Left Anterior Tibial and Paroneal Artery 02-26-2022 Unclassified (2 sources) Patient will need to be seen next week, call office to confirm appointment Unclassified (2 sources) Confirm an appointment in December 2024 for follow-up Unclassified (1 source) Acidosis, unspecified; Translations: [Acidosis, unspecified] Onset: 5 Past or Other Problems Problem Classification Problem Date Documented Da te Episodic/Chronic Acute and unspecified renal failure (20 sources) Acute renal failure syndrome; Translations: [Acute kidney failure, unspecified] Onset: 5 10-10-2024 Episodic Cancer of rectum and anus (20 sources) History of malignant neoplasm of rectum; Translations: [Personal history of other malignant neoplasm of rectum, rectosigmoid junction, and anus] Onset: 4 Episodic Complication of device; implant or graft (1 source) Infection and inflammatory reaction due to other urinary catheter, initial encounter; Translations: [Infection and inflammatory reaction due to other urinary catheter, initial encounter] Onset: 5 Episodic Complications of surgical procedures or medical care (20 sources) Pulmonary insufficiency following surgery; Translations: [Other postprocedural complications and disorders of respiratory system, not elsewhere classified] Onset: 4 12-18-2023 Episodic Fever of unknown origin (15 sources) Fever; Translations: [Fever, unspecified] Onset: 5 09-05-2024 Episodic Genitourinary symptoms and ill-defined conditions (20 sources) Retention of urine; Translations: [Retention of urine, unspecified] Onset: 4 03-11-2024 Episodic Immunizations and screening for infectious disease (1 source) Other specified vaccinations against streptococcus pneumoniae [pneumococcus]; Translations: [VACC-STREP PNEUMONIAE] Onset: 5 Episodic Nausea and vomiting (11 sources) Nausea and vomiting; Translations: [Nausea with vomiting, unspecified] Onset: 5 11-24-2024 Episodic Other aftercare (20 sources) 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; Translations: [prison (current) use of 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/antipl atelets] Onset: 0 05-27-2020 Episodic Other aftercare (20 sources) Insulin dose changed; Translations: [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 of insulin] Onset: 4 12-19-2023 Episodic Other aftercare (3 sources) prison (current) use of insulin; Translations: [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 of insulin] Onset: 4 Episodic Other aftercare (20 sources) Long-term current use of drug therapy; Translations: [prison (current) use of 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/antipl atelets] Onset: 0 05-27-2020 Episodic Other circulatory disease (1 source) Personal history of transient ischemic attack (TIA), and cerebral infarction without residual deficits; Translations: [PER HX TIA WO RES DEFIC] Onset: 5 Episodic Other circulatory disease (20 sources) History of cerebrovascular accident; Translations: [Personal history of transient ischemic attack (TIA), and cerebral infarction without residual deficits] Onset: 0 05-27-2020 Episodic Other gastrointestinal disorders (1 source) Other specified symptoms and signs involving the digestive system and abdomen; Translations: [High output ileostomy (HCC)] Onset: 4 Episodic Other lower respiratory disease (2 sources) Other forms of dyspnea; Translations: [Other forms of dyspnea] Onset: 4 Episodic Other nervous system disorders (16 sources) Postoperative pain ; Translations: [Other acute postprocedural pain] Onset: 0 05-27-2020 Episodic Other nervous system disorders (20 sources) Acute postoperative pain; Translations: [Other acute postprocedural pain] Onset: 0 12-18-2023 Episodic Other non-traumatic joint disorders (20 sources) Pain in right hip joint; Translations: [Pain in right hip] Onset: 6 10-06-2015 Episodic Other non-traumatic joint disorders (20 sources) Hip pain; Translations: [Pain in right hip] Onset: 6 10-06-2015 Episodic Other nutritional; endocrine; and metabolic disorders (20 sources) Feeding problem; Translations: [Feeding difficulties] Onset: 4 12-19-2023 Episodic Other screening for suspected conditions (not mental disorders or infectious disease) (20 sources) CT of abdomen abnormal; Translations: [Abnormal findings on diagnostic imaging of other abdominal regions, including retroperitoneum] Onset: Episodic Pancreatic disorders (not diabetes) (12 sources) Pancreatitis; Translations: [Acute pancreatitis without necrosis or infection, unspecified] Onset: 5 11-24-2024 Episodic Peripheral and visceral atherosclerosis (20 sources) Gangrenous ischemic colitis; Translations: [Acute infarction of large intestine, extent unspecified] Onset: 4 12-20-2023 Episodic Peritonitis and intestinal abscess (20 sources) Male pelvic abscess; Translations: [Peritoneal abscess] Onset: 4 12-18-2023 Episodic Residual codes; unclassified (20 sources) History of cardiac catheterization; Translations: [Other specified postprocedural states] Onset: 5 06-28-2022 Episodic Comment on above: Left main bifurcates normally into the LAD and circumflex. Left Main: small, severe diffuse disease; LAD: small, Proximal vessel lesion: 100% stenosis; LCX: small, Proximal vessel lesion: 100% stenosis; RCA: Medium sized, Mid-vessel lesion: 100% stenosis. GRAFTS: SVG to OM1, from aorta: mildly degenerated, Normal antegrade flow; KIMBERLYN to RI: Medium sized, Minor luminal irregularities, Normal antegrade flow...stent in the distal third of graft - patent; SVG to PDA: No evidence of disease, normal antegrade flow. The PDA is small but angiographically normal. The RPL branch fills retrogradely, this vessel is small in caliber with severe proximal disease. This is poorly amenable to PCI and is unchanged from previous prior cath. Per cardiac cath @ [facility] 01/22/15 Severe Multivessel C AD; Patent sequential ZUNIGA to Diagonal #2 and LAD; Patent SVG to the LCX; Patent Free KIMBERLYN to the PDA w/significant narrowings in the prox PDA and posterolateral branch; significant stenosis to Ramus per [facility] cath Dr. Bardales 12/25/14 Residual codes; unclassified (20 sources) History of excision of small intestine; Translations: [Acquired absence of other specified parts of digestive tract] Onset: 4 12-08-2023 Episodic Residual codes; unclassified (20 sources) Delirium; Translations: [Disorientation, unspecified] Onset: 4 12-19-2023 Episodic Respiratory failure; insufficiency; arrest (adult) (15 sources) Acute respiratory failure; Translations: [Acute respiratory failure with hypoxia] Onset: 5 10-10-2024 Episodic Septicemia (except in labor) (20 sources) Sepsis; Translations: [Sepsis, unspecified organism] Onset: 5 01-11-2020 Episodic Unclassified (1 source) CHEST PAIN NOS; Translations: [CHEST PAIN NOS] Onset: 5 Unclassified (10 sources) invasive rectal adenocarcinoma 02-26-2022 Unclassified (2 sources) Onset: 3 Resolved: 3 05-24-2023 Urinary tract infections (20 sources) Urinary tract infectious disease; Translations: [Urinary tract infection, site not specified] Onset: 5 Episodic Results Test Name Value Interpretation Reference Range Facility Absolute lymphocyte countOrd ered By: Tereza Brito on 03-17-2025 Lymphocytes Auto (Unsp spec) [#/Vol] 1.03 10*3/uL 0.83-4.51 [facility] Absolute neutrophil countOrd ered By: Tereza Brito on 03-17-2025 Neutrophils (Bld) [#/Vol] 7.7 10*3/uL 2.0-7.7 [facility] Anion gap in Serum or Plasma Ordered By: Tereza Brito on 03-17-2025 Anion gap [Moles/Vol] 16 mmol/L High 5-15 [facility] Automated lymphocyte count a s percentage of total leukocytesOrdered By: Tereza Brito on 03-17-2025 Lymphocytes/100 WBC Auto (Unsp spec) 10.5 % Low 19-41 [facility] BUN/creatinine ratioOrdered By: Tereza Brito on 03-17-2025 Urea nitrogen/Creatinine [Mass ratio] 26.7 mg/mg High 10- [facility] Basic Metabolic Profile (BMP )on 03-17-2025 BUN/CRE 26.7 RATIO High - [facility] Comment on above: Performed By: #### L 500.2500, L100.0100 ####[facility] [address] [place], [address] Calcium [Mass/Vol] 10.1 mg/dL Normal 7.6-11.0 [facility] Comment on above: Performed By: #### L 500.2500, L100.0100 ####[facility] [address] [place], [address] Chloride [Moles/Vol] 99 mmol/L Normal 98-108 [facility] Comment on above: Performed By: #### L 500.2500, L100.0100 ####[facility] [address] [place], [address] CO2 [Moles/Vol] 20.2 mmol/L Low 21.0-32.0 [facility] Comment on above: Performed By: #### L 500.2500, L100.0100 ####[facility] [address] [place], [address] Creatinine [Mass/Vol] 1.70 mg/dL High 0.70-1.20 [facility] Comment on above: Performed By: #### L 500.2500, L100.0100 ####[facility] [address] [place], [address] GAP 16 High 5-15 [facility] Comment on above: Performed By: #### L 500.2500, L100.0100 ####[facility] [address] [place], [address] GFR/1.73 sq M.predicted among non-blacks MDRD (S/P/Bld) [Vol rate/Area] 44 mL/min/{1.73_m2} Low >60 [facility] Comment on above: Result Comment: mL/m in/1.73m2 CKD-EPI Creatinine Equation (2020) Performed By: #### L 500.2500, L100.0100 ####[facility] [address] [place], [address] Glucose [Mass/Vol] 217 mg/dL High 70-99 [facility] Comment on above: Performed By: #### L 500.2500, L100.0100 ####[facility] [address] [place], [address] Potassium [Moles/Vol] 4.9 mmol/L Normal 3.3-5.1 [facility] Comment on above: Performed By: #### L 500.2500, L100.0100 ####[facility] [address] [place], [address] Sodium [Moles/Vol] 136 mmol/L Normal 133-145 [facility] Comment on above: Performed By: #### L 500.2500, L100.0100 ####[facility] [address] [place], [address] Urea nitrogen [Mass/Vol] 45 mg/dL High 4-19 [facility] Comment on above: Performed By: #### L 500.2500, L100.0100 ####[facility] [address] [place], [address] Basophil percentageOrdered B y: Tereaz Brito on 03-17-2025 Basophils/100 WBC (Bld) 0.3 % 0-1 [facility] CBC W/Diff, Automatedon 03-07 Absolute Lymph 1.03 X10 3/uL Normal 0.83-4.51 [facility] Comment on above: Performed By: #### L 500.2500, L100.0100 ####[facility] [address] [place], [address] Absolute Neut 7.7 X10 3/uL Normal 2.0-7.7 [facility] Comment on above: Performed By: #### L 500.2500, L100.0100 ####[facility] [address] [place], [address] Basophils/100 WBC (Bld) 0.3 % Normal 0-1 [facility] Comment on above: Performed By: #### L 500.2500, L100.0100 ####[facility] [address] [place], [address] Eosinophils/100 WBC (Bld) 0.2 % Normal 0-5 [facility] Comment on above: Performed By: #### L 500.2500, L100.0100 ####[facility] [address] [place], [address] Erythrocyte distribution width (RBC) [Ratio] 13.3 % Normal 11.6-14.6 [facility] Comment on above: Performed By: #### L 500.2500, L100.0100 ####[facility] [address] [place], [address] Hematocrit (Bld) [Volume fraction] 45.5 % Normal 40-54 [facility] Comment on above: Performed By: #### L 500.2500, L100.0100 ####[facility] [address] [place], [address] Hemoglobin (Bld) [Mass/Vol] 15.0 g/dL Normal 13.0-16.5 [facility] Comment on above: Performed By: #### L 500.2500, L100.0100 ####[facility] [address] [place], [address] IG% 0.300 Normal 0.0-0.9 [facility] Comment on above: Result Comment: IG% - Immature Granulocytes (promyelocytes, myelocytes andmetamyelocytes) > 1% indicates that a LEFT SHIFT is Present. Performed By: #### L 500.2500, L100.0100 ####[facility] [address] [place], [address] Lymphocytes/100 WBC (Bld) 10.5 % Low 19-41 [facility] Comment on above: Performed By: #### L 500.2500, L100.0100 ####[facility] [address] [place], [address] MCH (RBC) [Entitic mass] 29.3 pg Normal 27.0-32.0 [facility] Comment on above: Performed By: #### L 500.2500, L100.0100 ####[facility] [address] [place], [address] MCHC (RBC) [Mass/Vol] 33.0 g/dL Normal 32-36 [facility] Comment on above: Performed By: #### L 500.2500, L100.0100 ####[facility] [address] [place], [address] MCV (RBC) [Entitic vol] 88.9 fL Normal 80-[address] [facility] Comment on above: Performed By: #### L 500.2500, L100.0100 ####[facility] [address] [place], [address] Monocytes/100 WBC (Bld) 10.4 % High 0-10 [facility] Comment on above: Performed By: #### L 500.2500, L100.0100 ####[facility] [address] [place], [address] Neutrophils/100 WBC (Bld) 78.3 % High 47-70 [facility] Comment on above: Performed By: #### L 500.2500, L100.0100 ####[facility] [address] [place], [address] Nucleated RBC (Bld) [#/Vol] 0 10*3/uL Normal 0-5 [facility] Comment on above: Performed By: #### L 500.2500, L100.0100 ####[facility] [address] [place], [address] Platelet mean volume (Bld) [Entitic vol] 10.1 fL Normal 6.2-12.0 [facility] Comment on above: Performed By: #### L 500.2500, L100.0100 ####[facility] [address] [place], [address] Platelets (Bld) [#/Vol] 285 10*3/uL Normal 150-450 [facility] Comment on above: Performed By: #### L 500.2500, L100.0100 ####[facility] [address] [place], [address] RBC (Bld) [#/Vol] 5.12 10*6/uL Normal 4.6-6.2 [facility] Comment on above: Performed By: #### L 500.2500, L100.0100 ####[facility] [address] [place], [address] RDW SD 43.6 fl Normal 35.1-43.9 [facility] Comment on above: Performed By: #### L 500.2500, L100.0100 ####[facility] [address] [place], [address] WBC (Bld) [#/Vol] 9.9 10*3/uL Normal 4.4-11.0 [facility] Comment on above: Performed By: #### L 500.2500, L100.0100 ####[facility] [address] [place], [address] Carbon dioxide, total [Moles /volume] in Central venous bloodOrdered By: Tereza Brito on 03-17-2025 CO2 [Moles/Vol] 20.2 mmol/L Low 21.0-32.0 [facility] Cardiology Visit Reporton Cardiology Visit Report Normal [facility] Chloride assayOrdered By: Roland Brito on 03-17-2025 Chloride [Moles/Vol] 99 mmol/L 98-108 [facility] Eosinophil percentageOrdered By: Tereza Brito on 03-17-2025 Eosinophils/100 WBC (Bld) 0.2 % 0-5 [facility] Erythrocyte distribution wid th ratioOrdered By: Tereza Brito on 03-17-2025 Erythrocyte distribution width (RBC) [Ratio] 13.3 % 11.6-14.6 [facility] Erythrocyte distribution wid th standard deviationOrdered By: Tereza Brito on 03-17-2025 Erythrocyte distribution width (RBC) [Ratio] 43.6 fl 35.1-43.9 [facility] Glomerular filtration rate ( GFR) estimation/1.73 sq m using serum, plasma, or whole bOrdered By: Tereza Brito on 03-17-2025 GFR/1.73 sq M.predicted among non-blacks MDRD (S/P/Bld) [Vol rate/Area] 44 mL/min/{1.73_m2} Low >60 [facility] Comment on above: mL/min/1.73m2 CKD-EP I Creatinine Equation (2020) Hematocrit Auto (Bld) [Volum e fraction]Ordered By: Tereza Brito on 03-17-2025 Hematocrit (Bld) [Volume fraction] 45.5 % 40-54 [facility] [facility] Hemoglobin measurementOrdere d By: Tereza Brito on 03-17-2025 Hemoglobin (Bld) [Mass/Vol] 15.0 g/dL 13.0-16.5 [facility] Immature granulocytes/100 WB C Auto (Bld)Ordered By: Tereza Brito on 03-17-2025 Immature granulocytes/100 WBC (Bld) 0.300 % 0.0-0.9 [facility] Comment on above: IG% - Immature Granu locytes (promyelocytes, myelocytes and metamyelocytes) > 1% indicates that a LEFT SHIFT is Present. MCV (mean corpuscular volume ) determinationOrdered By: Tereza Brito on 03-17-2025 MCV (RBC) [Entitic vol] 88.9 fL 80-94 [facility] Mean corpuscular hemoglobin (MCH) determinationOrdered By: Tereza Brito on 03-17-2025 MCH (RBC) [Entitic mass] 29.3 pg 27.0-32.0 [facility] Mean corpuscular hemoglobin concentration (MCHC) determinationOrdered By: Tereza Brito on 03-17-2025 MCHC (RBC) [Mass/Vol] 33.0 g/dL 32-36 [facility] Mean platelet volume determi nationOrdered By: Tereza Brito on 03-17-2025 Platelet mean volume (Bld) [Entitic vol] 10.1 fL 6.2-12.0 [facility] Monocyte percentageOrdered B y: Tereza Brito on 03-17-2025 Monocytes/100 WBC (Bld) 10.4 % High 0-10 [facility] Neutrophil percentageOrdered By: Tereza Brito on 03-17-2025 Neutrophils/100 WBC (Bld) 78.3 % High 47-70 [facility] Nucleated red blood cell per centageOrdered By: Tereza Brito on 03-17-2025 Nucleated RBC/100 WBC (Bld) [Ratio] 0 % 0-5 [facility] Platelet countOrdered By: Roland Brito on 03-17-2025 Platelets (Bld) [#/Vol] 285 10*3/uL 150-450 [facility] Potassium measurement (mass/ volume)Ordered By: Tereza Brito on 03-17-2025 Potassium (Unsp spec) [Mass/Vol] 4.9 mmol/L 3.3-5.1 [facility] RBC Auto (Bld) [#/Vol]Ordere d By: Tereza Brito on 03-17-2025 RBC (Bld) [#/Vol] 5.12 10*6/uL 4.6-6.2 [facility] Serum creatinine measurement (mass/volume)Ordered By: Tereza Brito on 03-17-2025 Creatinine [Mass/Vol] 1.70 mg/dL High 0.70-1.20 [facility] Serum glucose measurement (m ass/volume)Ordered By: Tereza Brito on 03-17-2025 Glucose [Mass/Vol] 217 mg/dL High 70-99 [facility] Serum or plasma calcium isael urement (mass/volume)Ordered By: Tereza Brito on 03-17-2025 Calcium [Mass/Vol] 10.1 mg/dL 7.6-11.0 [facility] Serum or plasma urea nitroge n measurement (mass/volume)Ordered By: Tereza Brito on 03-17-2025 Urea nitrogen [Mass/Vol] 45 mg/dL High 4-19 [facility] Sodium levelOrdered By: Eduarda Brito on 03-17-2025 Sodium [Moles/Vol] 136 mmol/L 133-145 [facility] White blood cell (WBC) count Ordered By: Tereza Brito on 03-17-2025 WBC (Bld) [#/Vol] 9.9 10*3/uL 4.4-11.0 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 12/31/2024 3:50 PM Signed Isaias Vega is a 69 year old male who presents today for a follow up for Patient presents with: Established Patient: 3 month follow up/suprapubic catheter CHIEF COMPLAINT AND HISTORY OF PRESENT ILLNESS CC: catheter change 69 year old male with a history of CVA, colo rectal cancer, chronic urinary retention, placement of SPT by IR in July 2025, he presents today to have the #18 SPT changed, he will start having it changed at home by [facility], he does endorse some leakage from the urethra while the SPT was in place.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 SPT has been draining yellow urine with some bleeding around the insertion site Seen by Dr. Barfield in May 2025 for urinary retention. UDS completed showing lack of mobility and small volume bladder, do not recommend WINTERS procedure, as he would likely develop worsening incontinence. Discussed chronic Mackenzie vs SPT. Do not recommend CIC given small volume bladder. SPT placed on 07/29/[address] Gonzalez. VITALS: There were no vitals taken for this visit. ALLERGIES: Patient has no known allergies. MEDICATIONS: Current Outpatient Medications Medication Sig Dispense Refill gabapentin (NEURONTIN) 300 mg capsule Take 300 mg by mouth three times a day. loperamide (IMODIUM A-D) 2 mg cap(s) Take 2 mg by mouth four times a day as needed. isosorbide dinitrate (ISORDIL) 30 mg tablet Take 30 mg by mouth four times daily. meclizine (ANTIVERT) 25 mg tab Take 25 mg by mouth three times a day. oxymetazoline (NASAL SPRAY 12HR,OXYMETAZOLINE) 0.05 % nasal spray Use 2 sprays in the nose two times a day. Multivitamins with Fluoride (MULTI VIT-FLUORIDE ORAL) Take by mouth. ondansetron HCl (ZOFRAN ORAL) Take by mouth. clopidogrel (PLAVIX) 75 mg tablet Take 1 tablet by mouth once daily. acetaminophen (TYLENOL) 325 mg tablet Take 2 tablets by mouth every 6 hours. aspirin 81 mg chewable tablet Take 1 tablet by mouth once daily. carvedilol (COREG) 12.5 mg tablet Take 1 tablet by mouth two times a day. DULoxetine (CYMBALTA) 60 mg capsule Take 1 capsule by mouth daily at bedtime. insulin glargine 100 unit/mL (3 mL) Inject 30 Units subcutaneously every morning. insulin lispro 100 unit/mL injection Inject 3 Units subcutaneously with meals. lidocaine (SALONPAS) 4 % patch Apply 1 Patch as directed once daily. melatonin 3 mg tablet Take 2 tablets by mouth one time only for 1 dose. [address] (PROTONIX) 40 mg tablet Take 1 tablet by mouth daily at 6 am. diphenoxylate-atropine (LOMOTIL) 2.5-0.025 mg per tablet Take 1 tablet by mouth four times a day as needed for diarrhea (high ostomy output) for up to 30 days. 120 tablet 0 dextrose (TRUEPLUS) 15 gram/32 mL oral gel Take 32 mL by mouth as needed. (Patient not taking: Reported on 12/31/2024) ipratropium-albuterol (DUONEB) 0.5 mg-3 mg(2.5 mg base)/3 mL nebu Inhale 3 mL as instructed every 6 hours as needed for wheezing/shortness of breath. (Patient not taking: Reported on 12/31/2024) labetalol (NORMODYNE) 5 mg/mL injection Inject 1 mL intravenously every 4 hours as needed (SBP > 160 only if HR < 90). (Patient not taking: Reported on 06/04/2024) OLANZapine orally disintegrating (ZYPREXA ZYDIS) 5 mg disintegrating tablet Take 0.5 tablets by mouth every 8 hours as needed. (Patient not taking: Reported on 12/31/2024) ondansetron, PF, (ZOFRAN) 4 mg/2 mL soln Inject 4 mg intravenously every 6 hours as needed. (Patient not taking: Reported on 06/04/2024) rosuvastatin (CRESTOR) 40 mg tablet Take 1 tablet by mouth daily at bedtime. (Patient not taking: Reported on 12/31/2024) zinc oxide-cod liver oil (DESITIN 40%) 40 % paste Apply 1 application to affected area as needed. (Patient not taking: Reported on 12/31/2024) No current facility-administered medications for this visit. 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 Normal [facility] Cardiology Visit Reporton Cardiology Visit Report Normal [facility] Basic Metabolic Profile (BMP )on 12-03-2024 BUN/CRE 29.1 RATIO High 10-20 [facility] Comment on above: Performed By: #### L [id number] ####[facility] [address] [place], [place], [id number] Calcium [Mass/Vol] 9.4 mg/dL Normal 7.6-11.0 [facility] Comment on above: Performed By: #### L [id number] ####[facility] [address] [place], [address] Chloride [Moles/Vol] 100 mmol/L Normal 98-108 [facility] Comment on above: Performed By: #### L [id number] ####[facility] [address] [place], [address] CO2 [Moles/Vol] 17.7 mmol/L Low 21.0-32.0 [facility] Comment on above: Performed By: #### L [id number] ####[facility] [address] [place], [address] Creatinine [Mass/Vol] 2.46 mg/dL High 0.70-1.20 [facility] Comment on above: Performed By: #### L [id number] ####[facility] [address] [place], [address] ECRCL 27.24 ml/min Low 50-250 [facility] Comment on above: Performed By: #### L [id number] ####[facility] [address] [place], [address] GAP 12 Normal 5-15 [facility] Comment on above: Performed By: #### L [id number] ####[facility] [address] [place], [address] GFR/1.73 sq M.predicted among non-blacks MDRD (S/P/Bld) [Vol rate/Area] 28 mL/min/{1.73_m2} Low >60 [facility] Comment on above: Result Comment: mL/m in/1.73m2 CKD-EPI Creatinine Equation (2020) Performed By: #### L [id number] ####[facility] [address] [place], [address] Glucose [Mass/Vol] 253 mg/dL High 70-99 [facility] Comment on above: Performed By: #### L [id number] ####[facility] [address] [place], [address] Potassium [Moles/Vol] 5.9 mmol/L High 3.3-5.1 [facility] Comment on above: Performed By: #### L [id number] ####[facility] [address] [place], [address] Sodium [Moles/Vol] 129 mmol/L Low 133-145 [facility] Comment on above: Performed By: #### L [id number] ####[facility] [address] [place], [address] Urea nitrogen [Mass/Vol] 72 mg/dL High 4-19 [facility] Comment on above: Performed By: #### L [id number] ####[facility] [address] [place], [address] Emergency Department Summary on 12-03-2024 Emergency Department Summary Normal [facility] 12 Lead EKGon 12-02-2024 12 Lead EKG Normal [facility] Anion gap in Serum or Plasma Ordered By: Ross Crump on 12-02-2024 Anion gap [Moles/Vol] 12 mmol/L 5-15 [facility] BUN/creatinine ratioOrdered By: Ross Crump on 12-02-2024 Urea nitrogen/Creatinine [Mass ratio] 29.1 mg/mg High 10-20 [facility] Carbon dioxide, total [Moles /volume] in Central venous bloodOrdered By: Ross Crump on 12-02-2024 CO2 [Moles/Vol] 17.7 mmol/L Low 21.0-32.0 [facility] Chloride assayOrdered By: Marifer Crump on 12-02-2024 Chloride [Moles/Vol] 100 mmol/L 98-108 [facility] Glomerular filtration rate ( GFR) estimation/1.73 sq m using serum, plasma, or whole bOrdered By: Ross Crump on 12-02-2024 GFR/1.73 sq M.predicted among non-blacks MDRD (S/P/Bld) [Vol rate/Area] 28 mL/min/{1.73_m2} Low >60 [facility] Comment on above: mL/min/1.73m2 CKD-EP I Creatinine Equation (2020) Potassium measurement (mass/ volume)Ordered By: Ross Crump on 12-02-2024 Potassium (Unsp spec) [Mass/Vol] 5.9 mmol/L High 3.3-5.1 [facility] Serum creatinine measurement (mass/volume)Ordered By: Ross Crump on 12-02-2024 Creatinine [Mass/Vol] 2.46 mg/dL High 0.70-1.20 [facility] Serum glucose measurement (m ass/volume)Ordered By: Ross Crump on 12-02-2024 Glucose [Mass/Vol] 253 mg/dL High 70-99 [facility] Serum or plasma calcium isael urement (mass/volume)Ordered By: Ross Crump on 12-02-2024 Calcium [Mass/Vol] 9.4 mg/dL 7.6-11.0 [facility] Serum or plasma urea nitroge n measurement (mass/volume)Ordered By: Ross Crump on 12-02-2024 Urea nitrogen [Mass/Vol] 72 mg/dL High 4-19 [facility] Sodium levelOrdered By: Octavio Crump on 12-02-2024 Sodium [Moles/Vol] 129 mmol/L Low 133-145 [facility] [employer] 8623on OP Normal [facility] Comment on above: Performed By: #### M 600.5000 ####[facility] [address] [place], [place], [id number] Anion gap [Moles/Vol]Ordered By: Tahira Richards on 11-28-2024 Anion gap in Serum or Plasma 11 - [facility] Anion gap in Serum or Plasma Ordered By: Tahira Richards on 11-28-2024 Anion gap [Moles/Vol] 11 mmol/L 5-15 [facility] BUN/creatinine ratioOrdered By: Tahira Maurice on 11-28-2024 Urea nitrogen/Creatinine [Mass ratio] 21.2 mg/mg High 10-20 [facility] BUN/creatinine ratio 21.2 RATIO High 10-20 [facility] Basic Metabolic Profile (BMP )on 11-28-2024 BUN/CRE 21.2 RATIO High - [facility] Comment on above: Performed By: #### L [id number] ####[facility] [address] [place], [address] Calcium [Mass/Vol] 8.8 mg/dL Normal 7.6-11.0 [facility] Comment on above: Performed By: #### L [id number] ####[facility] [address] [place], [address] Chloride [Moles/Vol] 102 mmol/L Normal 98-108 [facility] Comment on above: Performed By: #### L [id number] ####[facility] [address] [place], [address] CO2 [Moles/Vol] 21.9 mmol/L Normal 21.0-32.0 [facility] Comment on above: Performed By: #### L [id number] ####[facility] [address] [place], [address] Creatinine [Mass/Vol] 1.84 mg/dL High 0.70-1.20 [facility] Comment on above: Performed By: #### L [id number] ####[facility] [address] [place], [address] ECRCL 34.33 ml/min Low 50-250 [facility] Comment on above: Performed By: #### L [id number] ####[facility] [address] [place], [address] GAP 11 Normal 5-15 [facility] Comment on above: Performed By: #### L [id number] ####[facility] [address] [place], [address] GFR/1.73 sq M.predicted among non-blacks MDRD (S/P/Bld) [Vol rate/Area] 40 mL/min/{1.73_m2} Low >60 [facility] Comment on above: Result Comment: mL/m in/1.73m2 CKD-EPI Creatinine Equation (2020) Performed By: #### L [id number] ####[facility] [address] [place], [address] Glucose [Mass/Vol] 201 mg/dL High 70-99 [facility] Comment on above: Performed By: #### L [id number] ####[facility] [address] [place], [address] Potassium [Moles/Vol] 4.3 mmol/L Normal 3.3-5.1 [facility] Comment on above: Performed By: #### L [id number] ####[facility] [address] [place], [address] Sodium [Moles/Vol] 134 mmol/L Normal 133-145 [facility] Comment on above: Performed By: #### L [id number] ####[facility] [address] [place], [address] Urea nitrogen [Mass/Vol] 39 mg/dL High 4-19 [facility] Comment on above: Performed By: #### L [id number] ####[facility] [address] [place], [address] Bedside Glucoseon 11-28-2024 FINGERSTICK GLU 253 mg/dL High 74-106 [facility] Comment on above: Result Comment: ORLY DELGADILLO OF PATIENT CARE PER NURSING PROTOCOL Performed By: #### L 501.080 ####[facility] [address] [place], [address] FINGERSTICK GLU 208 mg/dL High 74-106 [facility] Comment on above: Result Comment: ORLY DELGADILLO OF PATIENT CARE PER NURSING PROTOCOL Performed By: #### L [id number] ####[facility] [address] [place], [address] Calcium [Mass/Vol]Ordered By : Tahira Richards on 11-28-2024 Serum or plasma calcium measurement (mass/volume) 8.8 mg/dL 7.6-11.0 [facility] Carbon dioxide, total [Moles /volume] in Central venous bloodOrdered By: aThira Richards on 11-28-2024 CO2 [Moles/Vol] 21.9 mmol/L 21.0-32.0 [facility] Carbon dioxide, total [Moles/volume] in Central venous blood 21.9 mmol/L 21.0-32.0 [facility] Chloride assayOrdered By: Elli Richards on 11-28-2024 Chloride [Moles/Vol] 102 mmol/L 98-108 [facility] Chloride assay 102 mmol/L 98-108 [facility] Creatinine [Mass/Vol]Ordered By: Tahira Richards on 11-28-2024 Serum creatinine measurement (mass/volume) 1.84 mg/dL High 0.70-1.20 [facility] Estimation of creatinine all aranceOrdered By: Tahira Richards on 11-28-2024 Estimation of creatinine clearance 34.33 ml/min Low 50-250 [facility] GFR/1.73 sq M.predicted ivette g non-blacks MDRD (S/P/Bld) [Vol rate/Area]Ordered By: Tahira Richards on 11-28-2024 Glomerular filtration rate (GFR) estimation/1.73 sq m using serum, plasma, or whole b 40 Low >60 [facility] Glomerular filtration rate ( GFR) estimation/1.73 sq m using serum, plasma, or whole bOrdered By: Tahira Richards on 11-28-2024 GFR/1.73 sq M.predicted among non-blacks MDRD (S/P/Bld) [Vol rate/Area] 40 mL/min/{1.73_m2} Low >60 [facility] Comment on above: mL/min/1.73m2 CKD-EP I Creatinine Equation (2020) Glucose [Mass/Vol]Ordered By : Tahira Richards on 11-28-2024 Serum glucose measurement (mass/volume) 201 mg/dL High 70-99 [facility] Glucose measurement at bedsi deOrdered By: Miguel Angel Motnez on 11-28-2024 Glucose [Mass/Vol] 253 mg/dL High 74-106 [facility] Comment on above: MANAGEMENT OF PATIEN T CARE PER NURSING PROTOCOL Glucose measurement at bedside 253 mg/dL High 74-106 [facility] Potassium (Unsp spec) [Mass/ Vol]Ordered By: Tahira Richards on 11-28-2024 Potassium measurement (mass/volume) 4.3 mmol/L 3.3-5.1 [facility] Potassium measurement (mass/ volume)Ordered By: Tahira Richards on 11-28-2024 Potassium (Unsp spec) [Mass/Vol] 4.3 mmol/L 3.3-5.1 [facility] Serum creatinine measurement (mass/volume)Ordered By: Tahira Richards on 11-28-2024 Creatinine [Mass/Vol] 1.84 mg/dL High 0.70-1.20 [facility] Serum glucose measurement (m ass/volume)Ordered By: Tahira Richards on 11-28-2024 Glucose [Mass/Vol] 201 mg/dL High 70-99 [facility] Serum or plasma calcium isael urement (mass/volume)Ordered By: Tahira Richards on 11-28-2024 Calcium [Mass/Vol] 8.8 mg/dL 7.6-11.0 [facility] Serum or plasma urea nitroge n measurement (mass/volume)Ordered By: Tahira Richards on 11-28-2024 Urea nitrogen [Mass/Vol] 39 mg/dL High 4-19 [facility] Sodium levelOrdered By: Diogo Richards on 11-28-2024 Sodium [Moles/Vol] 134 mmol/L 133-145 [facility] Sodium level 134 mmol/L 133-145 [facility] Urea nitrogen [Mass/Vol]Orde red By: Tahira Richards on 11-28-2024 Serum or plasma urea nitrogen measurement (mass/volume) 39 mg/dL High 4-19 [facility] Basic Metabolic Profile (BMP )on 11-27-2024 BUN/CRE 28.8 RATIO High 10-20 [facility] Comment on above: Performed By: #### L [id number] ####[facility] [address] [place], [address] Calcium [Mass/Vol] 8.5 mg/dL Normal 7.6-11.0 [facility] Comment on above: Performed By: #### L [id number] ####[facility] [address] [place], [address] Chloride [Moles/Vol] 103 mmol/L Normal 98-108 [facility] Comment on above: Performed By: #### L [id number] ####[facility] [address] [place], [address] CO2 [Moles/Vol] 24.6 mmol/L Normal 21.0-32.0 [facility] Comment on above: Performed By: #### L [id number] ####[facility] [address] [place], [address] Creatinine [Mass/Vol] 1.26 mg/dL High 0.70-1.20 [facility] Comment on above: Performed By: #### L [id number] ####[facility] [address] [place], [address] ECRCL 50.05 ml/min Normal 50-250 [facility] Comment on above: Performed By: #### L [id number] ####[facility] [address] [place], [address] GAP 10 Normal 5-15 [facility] Comment on above: Performed By: #### L [id number] ####[facility] [address] [place], [address] GFR/1.73 sq M.predicted among non-blacks MDRD (S/P/Bld) [Vol rate/Area] 63 mL/min/{1.73_m2} Normal >60 [facility] Comment on above: Result Comment: mL/m in/1.73m2 CKD-EPI Creatinine Equation (2020) Performed By: #### L [id number] ####[facility] [address] [place], [address] Glucose [Mass/Vol] 190 mg/dL High 70-99 [facility] Comment on above: Performed By: #### L [id number] ####[facility] [address] [place], [address] Potassium [Moles/Vol] 3.9 mmol/L Normal 3.3-5.1 [facility] Comment on above: Result Comment: Hemo lysis present, Results??could be affected.?? Performed By: #### L [id number] ####[facility] [address] [place], [address] Sodium [Moles/Vol] 138 mmol/L Normal 133-145 [facility] Comment on above: Performed By: #### L [id number] ####[facility] [address] [place], [address] Urea nitrogen [Mass/Vol] 36 mg/dL High 4-19 [facility] Comment on above: Performed By: #### L [id number] ####[facility] [address] [place], [address] Bedside Glucoseon 11-27-2024 FINGERSTICK GLU 365 mg/dL High 74-106 [facility] Comment on above: Result Comment: ORLY DELGADILLO OF PATIENT CARE PER NURSING PROTOCOL Performed By: #### L 501.080 ####[facility] [address] [place], [address] FINGERSTICK GLU 312 mg/dL High 74-106 [facility] Comment on above: Result Comment: ORLY GEMENT OF PATIENT CARE PER NURSING PROTOCOL Performed By: #### L 501.080 ####[facility] [address] [place], [address] FINGERSTICK GLU 203 mg/dL High 74-106 [facility] Comment on above: Result Comment: ORLY GEMENT OF PATIENT CARE PER NURSING PROTOCOL Performed By: #### L 501.080 ####[facility] [facility] [address] [place], [address] FINGERSTICK GLU 195 mg/dL High -106 [facility] Comment on above: Result Comment: ORLY GEMENT OF PATIENT CARE PER NURSING PROTOCOL Performed By: #### L 501.080 ####[facility] [address] [place], [address] FINGERSTICK GLU 194 mg/dL High 74-106 [facility] Comment on above: Result Comment: ORLY GEMENT OF PATIENT CARE PER NURSING PROTOCOL Performed By: #### L 501.080 ####[facility] [address] [place], [address] Urine Cultureon 11-27-2024 URC Urine Culture Urine Culture Presumptive C albicans Holt Count 1000-10,000 Normal [facility] Comment on above: Performed By: #### L 400.0001, M100.2200 ####[facility] [address] [place], [address] Basic Metabolic Profile (BMP )on 11-26-2024 BUN/CRE 37.7 RATIO High 10-20 [facility] Comment on above: Performed By: #### L 500.2500 ####[facility] [address] [place], [address] Calcium [Mass/Vol] 8.3 mg/dL Normal 7.6-11.0 [facility] Comment on above: Performed By: #### L 500.2500 ####[facility] [address] [place], [address] Chloride [Moles/Vol] 102 mmol/L Normal 98-108 [facility] Comment on above: Performed By: #### L 500.2500 ####[facility] [address] [place], [address] CO2 [Moles/Vol] 23.8 mmol/L Normal 21.0-32.0 [facility] Comment on above: Performed By: #### L 500.2500 ####[facility] [address] [place], [address] Creatinine [Mass/Vol] 1.60 mg/dL High 0.70-1.20 [facility] Comment on above: Performed By: #### L 500.2500 ####[facility] [address] [place], [address] ECRCL 38.53 ml/min Low 50-250 [facility] Comment on above: Performed By: #### L 500.2500 ####[facility] [address] [place], [address] GAP 12 Normal 5-15 [facility] Comment on above: Performed By: #### L 500.2500 ####[facility] [address] [place], [address] GFR/1.73 sq M.predicted among non-blacks MDRD (S/P/Bld) [Vol rate/Area] 47 mL/min/{1.73_m2} Low >60 [facility] Comment on above: Result Comment: mL/m in/1.73m2 CKD-EPI Creatinine Equation (2020) Performed By: #### L 500.2500 ####[facility] [address] [place], [address] Glucose [Mass/Vol] 118 mg/dL High 70-99 [facility] Comment on above: Performed By: #### L 500.2500 ####[facility] [address] [place], [address] Potassium [Moles/Vol] 3.0 mmol/L Low 3.3-5.1 [facility] Comment on above: Performed By: #### L 500.2500 ####[facility] [address] [place], [address] Sodium [Moles/Vol] 138 mmol/L Normal 133-145 [facility] Comment on above: Performed By: #### L 500.2500 ####[facility] [address] [place], [address] Urea nitrogen [Mass/Vol] 60 mg/dL High 4-19 [facility] Comment on above: Performed By: #### L 500.2500 ####[facility] [address] [place], [address] Bedside Glucoseon 11-26-2024 FINGERSTICK GLU 173 mg/dL High 74-106 [facility] Comment on above: Result Comment: ORLY GEMENT OF PATIENT CARE PER NURSING PROTOCOL Performed By: #### L 501.080 ####[facility] [address] [place], [address] FINGERSTICK GLU 55 mg/dL Low 74-106 [facility] Comment on above: Result Comment: ORLY GEMENT OF PATIENT CARE PER NURSING PROTOCOL Performed By: #### L 501.080 ####[facility] [address] [place], [address] FINGERSTICK GLU 59 mg/dL Low 74-106 [facility] Comment on above: Result Comment: ORLY GEMENT OF PATIENT CARE PER NURSING PROTOCOL Performed By: #### L 501.080 ####[facility] [address] [place], [address] FINGERSTICK GLU 108 mg/dL High 74-106 [facility] Comment on above: Result Comment: ORLY GEMENT OF PATIENT CARE PER NURSING PROTOCOL Performed By: #### L 501.080 ####[facility] [address] [place], [address] FINGERSTICK GLU 133 mg/dL High 74-106 [facility] Comment on above: Result Comment: ORLY GEMENT OF PATIENT CARE PER NURSING PROTOCOL Performed By: #### L 501.080 ####[facility] [address] [place], [address] Echo, Limited Studyon 2024 Echo, Limited Study Normal [facility] Limited echocardiogram repor tOrdered By: Pk Shin on 11-26-2024 Study report [facility] Work Phone: Anion gap [Moles/Vol]Ordered By: Claudio Devlin on 11-25-2024 Anion gap in Serum or Plasma 15 5-15 [facility] BUN/creatinine ratioOrdered By: Claudio Devlin on 11-25-2024 BUN/creatinine ratio 39.3 RATIO High 10-20 [facility] Basic Metabolic Profile (BMP )on 11-25-2024 BUN/CRE 40.0 RATIO High 10-20 [facility] Comment on above: Performed By: #### L 100.0500, L500.2500, L501.2450 ####[facility] [address] [place], [address] Calcium [Mass/Vol] 8.3 mg/dL Normal 7.6-11.0 [facility] Comment on above: Performed By: #### L 100.0500, L500.2500, L501.2450 ####[facility] [address] [place], [address] Chloride [Moles/Vol] 99 mmol/L Normal 98-108 [facility] Comment on above: Performed By: #### L 100.0500, L500.2500, L501.2450 ####[facility] [address] [place], [address] CO2 [Moles/Vol] 22.4 mmol/L Normal 21.0-32.0 [facility] Comment on above: Performed By: #### L 100.0500, L500.2500, L501.2450 ####[facility] [address] [place], [address] Creatinine [Mass/Vol] 2.60 mg/dL High 0.70-1.20 [facility] Comment on above: Performed By: #### L 100.0500, L500.2500, L501.2450 ####[facility] [address] [place], [address] ECRCL 23.75 ml/min Low 50-250 [facility] Comment on above: Performed By: #### L 100.0500, L500.2500, L501.2450 ####[facility] [address] [place], [address] GAP 14 Normal 5-15 [facility] Comment on above: Performed By: #### L 100.0500, L500.2500, L501.2450 ####[facility] [address] [place], [address] GFR/1.73 sq M.predicted among non-blacks MDRD (S/P/Bld) [Vol rate/Area] 26 mL/min/{1.73_m2} Low >60 [facility] Comment on above: Result Comment: mL/m in/1.73m2 CKD-EPI Creatinine Equation (2020) Performed By: #### L 100.0500, L500.2500, L501.2450 ####[facility] [address] [place], [address] Glucose [Mass/Vol] 102 mg/dL High 70-99 [facility] Comment on above: Performed By: #### L 100.0500, L500.2500, L501.2450 ####[facility] [address] [place], [address] Potassium [Moles/Vol] 2.8 mmol/L Low 3.3-5.1 [facility] Comment on above: Performed By: #### L 100.0500, L500.2500, L501.2450 ####[facility] [address] [place], [address] Sodium [Moles/Vol] 136 mmol/L Normal 133-145 [facility] Comment on above: Performed By: #### L 100.0500, L500.2500, L501.2450 ####[facility] [address] [place], [address] Urea nitrogen [Mass/Vol] 104 mg/dL Invalid Interpretation Code 419 [facility] Comment on above: Result Comment: Crit ical Result(s) Called to Annika MARKHAM ([facility]X MONETT): Stoner:??Results read back by same. Performed By: #### L 100.0500, L500.2500, L501.2450 ####[facility] [address] [place], [address] BUN/CRE 39.3 RATIO High 10-20 [facility] Comment on above: Performed By: #### L 100.0500, L500.2500 ####[facility] [address] [place], [address] Calcium [Mass/Vol] 8.2 mg/dL Normal 7.6-11.0 [facility] Comment on above: Performed By: #### L 100.0500, L500.2500 ####[facility] [address] [place], [address] Chloride [Moles/Vol] 96 mmol/L Low 98-108 [facility] Comment on above: Performed By: #### L 100.0500, L500.2500 ####[facility] [address] [place], [address] CO2 [Moles/Vol] 22.8 mmol/L Normal 21.0-32.0 [facility] Comment on above: Performed By: #### L 100.0500, L500.2500 ####[facility] [address] [place], [address] Creatinine [Mass/Vol] 2.95 mg/dL High 0.70-1.20 [facility] Comment on above: Performed By: #### L 100.0500, L500.2500 ####[facility] [address] [place], [address] ECRCL 20.93 ml/min Low 50-250 [facility] Comment on above: Performed By: #### L 100.0500, L500.2500 ####[facility] [address] [place], [address] GAP 15 Normal 5-15 [facility] Comment on above: Performed By: #### L 100.0500, L500.2500 ####[facility] [address] [place], [address] GFR/1.73 sq M.predicted among non-blacks MDRD (S/P/Bld) [Vol rate/Area] 23 mL/min/{1.73_m2} Low >60 [facility] Comment on above: Result Comment: mL/m in/1.73m2 CKD-EPI Creatinine Equation (2020) Performed By: #### L 100.0500, L500.2500 ####[facility] [address] [place], [address] Glucose [Mass/Vol] 112 mg/dL High 70-99 [facility] Comment on above: Performed By: #### L 100.0500, L500.2500 ####[facility] [address] [place], [address] Potassium [Moles/Vol] 3.2 mmol/L Low 3.3-5.1 [facility] Comment on above: Performed By: #### L 100.0500, L500.2500 ####[facility] [address] [place], [address] Sodium [Moles/Vol] 134 mmol/L Normal 133-145 [facility] Comment on above: Performed By: #### L 100.0500, L500.2500 ####[facility] [address] [place], [address] Urea nitrogen [Mass/Vol] 116 mg/dL Invalid Interpretation Code 4 [facility] Comment on above: Result Comment: Crit ical Result(s) Called at: 0604 by: NILSON PATEL??Results read back by same. Performed By: #### L 100.0500, L500.2500 ####[facility] [address] [place], [address] Bedside Glucoseon 11-25-2024 FINGERSTICK GLU 122 mg/dL High 74-106 [facility] Comment on above: Result Comment: ORLY GEMENT OF PATIENT CARE PER NURSING PROTOCOL Performed By: #### L 501.080 ####[facility] [address] [place], [address] FINGERSTICK GLU 215 mg/dL High 74-106 [facility] Comment on above: Result Comment: ORLY GEMENT OF PATIENT CARE PER NURSING PROTOCOL Performed By: #### L 501.080 ####[facility] [address] [place], [address] FINGERSTICK GLU 118 mg/dL High 74-106 [facility] Comment on above: Result Comment: ORLY GEMENT OF PATIENT CARE PER NURSING PROTOCOL Performed By: #### L 501.080 ####[facility] [address] [place], [address] FINGERSTICK GLU 149 mg/dL High 74-106 [facility] Comment on above: Result Comment: ORLY GEMENT OF PATIENT CARE PER NURSING PROTOCOL Performed By: #### L 501.080 ####[facility] [address] [place], [address] FINGERSTICK GLU 87 mg/dL Normal 74-106 [facility] Comment on above: Result Comment: ORLY GEMENT OF PATIENT CARE PER NURSING PROTOCOL Performed By: #### L 501.080 ####[facility] [address] [place], [address] FINGERSTICK GLU 147 mg/dL High 74-106 [facility] Comment on above: Result Comment: ORLY GEMENT OF PATIENT CARE PER NURSING PROTOCOL Performed By: #### L 501.080 ####[facility] [address] [place], [address] CBC-Complete Blood Cnt No Di ffon 11-25-2024 Erythrocyte distribution width (RBC) [Ratio] 13.7 % Normal 11.6-14.6 [facility] Comment on above: Performed By: #### L 100.0500, L500.2500, L501.2450 ####[facility] [address] [place], [address] Hematocrit (Bld) [Volume fraction] 29.0 % Low 40-54 [facility] Comment on above: Performed By: #### L 100.0500, L500.2500, L501.2450 ####[facility] [address] [place], [address] Hemoglobin (Bld) [Mass/Vol] 10.4 g/dL Low 13.0-16.5 [facility] Comment on above: Performed By: #### L 100.0500, L500.2500, L501.2450 ####[facility] [address] [place], [address] MCH (RBC) [Entitic mass] 29.2 pg Normal 27.0-32.0 [facility] Comment on above: Performed By: #### L 100.0500, L500.2500, L501.2450 ####[facility] [address] [place], [address] MCHC (RBC) [Mass/Vol] 35.9 g/dL Normal 32-36 [facility] Comment on above: Performed By: #### L 100.0500, L500.2500, L501.2450 ####[facility] [address] [place], [address] MCV (RBC) [Entitic vol] 81.5 fL Normal 80-94 [facility] Comment on above: Performed By: #### L 100.0500, L500.2500, L501.2450 ####[facility] [address] [place], [address] Platelet mean volume (Bld) [Entitic vol] 9.8 fL Normal 6.2-12.0 [facility] Comment on above: Performed By: #### L 100.0500, L500.2500, L501.2450 ####[facility] [address] [place], [address] Platelets (Bld) [#/Vol] 168 10*3/uL Normal 150-450 [facility] Comment on above: Performed By: #### L 100.0500, L500.2500, L501.2450 ####[facility] [address] [place], [address] RBC (Bld) [#/Vol] 3.56 10*6/uL Low 4.6-6.2 [facility] Comment on above: Performed By: #### L 100.0500, L500.2500, L501.2450 ####[facility] [address] [place], [address] RDW SD 40.8 fl Normal 35.1-43.9 [facility] Comment on above: Performed By: #### L 100.0500, L500.2500, L501.2450 ####[facility] [address] [place], [address] WBC (Bld) [#/Vol] 7.2 10*3/uL Normal 4.4-11.0 [facility] Comment on above: Performed By: #### L 100.0500, L500.2500, L501.2450 ####[facility] [address] [place], [address] Erythrocyte distribution width (RBC) [Ratio] 13.8 % Normal 11.6-14.6 [facility] Comment on above: Performed By: #### L 100.0500, L500.2500 ####[facility] [address] [place], [address] Hematocrit (Bld) [Volume fraction] 28.7 % Low 40-54 [facility] Comment on above: Performed By: #### L 100.0500, L500.2500 ####[facility] [address] [place], [address] Hemoglobin (Bld) [Mass/Vol] 9.9 g/dL Low 13.0-16.5 [facility] Comment on above: Performed By: #### L 100.0500, L500.2500 ####[facility] [address] [place], [address] MCH (RBC) [Entitic mass] 28.7 pg Normal 27.0-32.0 [facility] Comment on above: Performed By: #### L 100.0500, L500.2500 ####[facility] [address] [place], [address] MCHC (RBC) [Mass/Vol] 34.5 g/dL Normal 32-36 [facility] Comment on above: Performed By: #### L 100.0500, L500.2500 ####[facility] [address] [place], [address] MCV (RBC) [Entitic vol] 83.2 fL Normal 80-94 [facility] Comment on above: Performed By: #### L 100.0500, L500.2500 ####[facility] [address] [place], [address] Platelet mean volume (Bld) [Entitic vol] 10.8 fL Normal 6.2-12.0 [facility] Comment on above: Performed By: #### L 100.0500, L500.2500 ####[facility] [address] [place], [address] Platelets (Bld) [#/Vol] 173 10*3/uL Normal 150-450 [facility] Comment on above: Performed By: #### L 100.0500, L500.2500 ####[facility] [address] [place], [address] RBC (Bld) [#/Vol] 3.45 10*6/uL Low 4.6-6.2 [facility] Comment on above: Performed By: #### L 100.0500, L500.2500 ####[facility] [address] [place], [address] RDW SD 41.4 fl Normal 35.1-43.9 [facility] Comment on above: Performed By: #### L 100.0500, L500.2500 ####[facility] [address] [place], [address] WBC (Bld) [#/Vol] 7.2 10*3/uL Normal 4.4-11.0 [facility] Comment on above: Performed By: #### L 100.0500, L500.2500 ####[facility] [address] [place], [address] Calcium [Mass/Vol]Ordered By : Claudio Devlin on 11-25-2024 Serum or plasma calcium measurement (mass/volume) 8.2 mg/dL 7.6-11.0 [facility] Carbon dioxide, total [Moles /volume] in Central venous bloodOrdered By: Claudio Devlin on 11-25-2024 Carbon dioxide, total [Moles/volume] in Central venous blood 22.8 mmol/L 21.0-32.0 [facility] Chloride assayOrdered By: Guzman Devlin on 11-25-2024 Chloride assay 96 mmol/L Low 98-108 [facility] Consultation - Nephrologyon 11-25-2024 Consultation - Nephrology Normal [facility] Creatinine [Mass/Vol]Ordered By: Claudio Devlin on 11-25-2024 Serum creatinine measurement (mass/volume) 2.95 mg/dL High 0.70-1.20 [facility] Creatinine, Urineon 11-26-19 URINE CREAT 42.10 mg/dL Normal 39.00-259.0 0 [facility] Comment on above: Performed By: #### L 502.0300, L501.5500 ####[facility] [address] [place], [address] ENTERIC PATHOGEN PANEL STOOL on 11-25-2024 EP PANEL Normal [facility] Comment on above: Performed By: #### M 100.0605, M100.637, M100.6796 ####[facility] [address] [place], [place], [address] Erythrocyte distribution wid th (RBC) [Ratio]Ordered By: Claudio Devlin on 11-25-2024 Erythrocyte distribution width ratio 13.7 % 11.6-14.6 [facility] Erythrocyte distribution width standard deviation 40.8 fl 35.1-43.9 [facility] Erythrocyte distribution wid th ratioOrdered By: Claudio Devlin on 11-25-2024 Erythrocyte distribution width (RBC) [Ratio] 13.7 % 11.6-14.6 [facility] Erythrocyte distribution wid th standard deviationOrdered By: Claudio Devlin on 11-25-2024 Erythrocyte distribution width (RBC) [Ratio] 40.8 fl 35.1-43.9 [facility] Estimation of creatinine all aranceOrdered By: Claudio Devlin on 11-25-2024 Estimation of creatinine clearance 20.93 ml/min Low 50-250 [facility] GFR/1.73 sq M.predicted ivette g non-blacks MDRD (S/P/Bld) [Vol rate/Area]Ordered By: Claudio Devlin on 11-25-2024 Glomerular filtration rate (GFR) estimation/1.73 sq m using serum, plasma, or whole b 23 Low >60 [facility] Glucose [Mass/Vol]Ordered By : Claudio Devlin on 11-25-2024 Serum glucose measurement (mass/volume) 112 mg/dL High 70-99 [facility] Glucose measurement at bedsi deOrdered By: Claudio Devlin on 11-25-2024 Glucose measurement at bedside 87 mg/dL 74-106 [facility] Hematocrit Auto (Bld) [Volum e fraction]Ordered By: Claudio Devlin on 11-25-2024 Hematocrit (Bld) [Volume fraction] 29.0 % Low 40-54 [facility] Automated blood hematocrit (percentage) 29.0 % Low 40-54 [facility] Hemoglobin measurementOrdere d By: Claudio Devlin on 11-25-2024 Hemoglobin (Bld) [Mass/Vol] 10.4 g/dL Low 13.0-16.5 [facility] Hemoglobin measurement 10.4 g/dL Low 13.0-16.5 [facility] Lipaseon 11-25-2024 Lipase [Catalytic activity/Vol] 1331 U/L High 13-75 [facility] Comment on above: Result Comment: Ousmane clemente note:LIPASE revised reference range effective 22.New Lipase methodology. Expected to produce lower valuesthan the previous assay method.NEW Reference Range: 13 - 75 U/L Performed By: #### L 100.0500, L500.2500, L501.2450 ####[facility] [address] [place], [address] Lipase measurementOrdered By : Claudio Devlin on 11-25-2024 Lipase [Catalytic activity/Vol] 1331 U/L High 13-75 [facility] Comment on above: Please note:LIPASE r evised reference range effective 22. New Lipase methodology. Expected to produce lower values than the previous assay method. NEW Reference Range: 13 - 75 U/L Lipase measurement 1331 U/L High 13-75 [facility] MCV (RBC) [Entitic vol]Order ed By: Claudio Devlin on 11-25-2024 MCV (mean corpuscular volume) determination 81.5 fL 80-94 [facility] MCV (mean corpuscular volume ) determinationOrdered By: Claudio Devlin on 11-25-2024 MCV (RBC) [Entitic vol] 81.5 fL 80-[address] [facility] Mean corpuscular hemoglobin (MCH) determinationOrdered By: Claudio Devlin on 11-25-2024 MCH (RBC) [Entitic mass] 29.2 pg 27.0-32.0 [facility] Mean corpuscular hemoglobin (MCH) determination 29.2 pg 27.0-32.0 [facility] Mean corpuscular hemoglobin concentration (MCHC) determinationOrdered By: Claudio Devlin on 11-25-2024 MCHC (RBC) [Mass/Vol] 35.9 g/dL 32-36 [facility] Mean corpuscular hemoglobin concentration (MCHC) determination 35.9 g/dL 32-36 [facility] Mean platelet volume determi nationOrdered By: Claudio Devlin on 11-25-2024 Platelet mean volume (Bld) [Entitic vol] 9.8 fL 6.2-12.0 [facility] Mean platelet volume determination 9.8 fl 6.2-12.0 [facility] Platelet countOrdered By: Guzman Devlin on 11-25-2024 Platelets (Bld) [#/Vol] 168 10*3/uL 150-450 [facility] Platelet count 168 K/mm3 150-450 [facility] Potassium (Unsp spec) [Mass/ Vol]Ordered By: Claudio Devlin on 11-25-2024 Potassium measurement (mass/volume) 3.2 mmol/L Low 3.3-5.1 [facility] RBC Auto (Bld) [#/Vol]Ordere d By: Claudio Devlin on 11-25-2024 RBC (Bld) [#/Vol] 3.56 10*6/uL Low 4.6-6.2 [facility] Automated blood erythrocyte count 3.56 M/mm3 Low 4.6-6.2 [facility] Sodium levelOrdered By: Oniel Devlin on 11-25-2024 Sodium level 134 mmol/L 133-145 [facility] Urea nitrogen [Mass/Vol]Orde red By: Claudio Devlin on 11-25-2024 Serum or plasma urea nitrogen measurement (mass/volume) 116 mg/dL High 4-19 [facility] Urine Sodiumon 11-25-2024 Sodium (U) [Moles/Vol] 38 mmol/L Normal Not Establ. [facility] Comment on above: Performed By: #### L 502.0300, L501.5500 ####[facility] [address] [place], [address] White blood cell (WBC) count Ordered By: Claudio Devlin on 11-25-2024 WBC (Bld) [#/Vol] 7.2 10*3/uL 4.4-11.0 [facility] White blood cell (WBC) count 7.2 K/mm3 4.4-11.0 [facility] ALP [Catalytic activity/Vol] Ordered By: Dannielle Boyce on 11-24-2024 Serum or plasma alkaline phosphatase measurement 116 U/L 40-129 [facility] ALT [Catalytic activity/Vol] Ordered By: Dannielle Boyce on 11-24-2024 Serum or plasma alanine aminotransferase (ALT) measurement 32 U/L <47 [facility] Abdomen/Pelvis without Conto n 11-24-2024 Abdomen/Pelvis without Cont Normal [facility] Absolute lymphocyte countOrd ered By: Dannielle Boyce on 11-24-2024 Lymphocytes Auto (Unsp spec) [#/Vol] 0.81 10*3/uL Low 0.83-4.51 [facility] Absolute neutrophil countOrd ered By: Dannielle Boyce on 11-24-2024 Neutrophils (Bld) [#/Vol] 7.1 10*3/uL 2.0-7.7 [facility] Absolute neutrophil count 7.1 X10^3/uL 2.0-7.7 [facility] Albumin [Mass/Vol]Ordered By : Dannielle Boyce on 11-24-2024 Serum or plasma albumin measurement (mass/volume) 4.2 g/dL 3.4-4.8 [facility] Albumin/Globulin [Mass ratio ]Ordered By: Dannielle Boyce on 11-24-2024 Serum or plasma albumin/globulin mass ratio 1.2 RATIO 0.9-2.4 [facility] Anion gap [Moles/Vol]Ordered By: Dannielle Boyce on 11-24-2024 Anion gap in Serum or Plasma 24 High 5-15 [facility] Automated lymphocyte count a s percentage of total leukocytesOrdered By: Dannielle Boyce on 11-24-2024 Lymphocytes/100 WBC Auto (Unsp spec) 9.1 % Low 19-41 [facility] BUN/creatinine ratioOrdered By: Dannielle Boyce on 11-24-2024 BUN/creatinine ratio 32.4 RATIO High 10-20 [facility] Basophil percentageOrdered B y: Dannielle Boyce on 11-24-2024 Basophils/100 WBC (Bld) 0.1 % 0-1 [facility] Basophil percentage 0.1 % 0-1 [facility] Bilirubin Test strip Ql (U)O rdered By: Claudio Devlin on 11-24-2024 Bilirubin Ql (U) Negative Negative [facility] Bilirubin, totalOrdered By: Dannielle Boyce on 11-24-2024 Bilirubin [Mass/Vol] 0.31 mg/dL 0.00-1.30 [facility] Bilirubin, total 0.31 mg/dL 0.00-1.30 [facility] CBC W/Diff, Automatedon 11-06 Absolute Lymph 0.81 X10 3/uL Low 0.83-4.51 [facility] Comment on above: Performed By: #### L 100.0100, L500.4050, L501.2450 ####[facility] [address] [place], [address] Absolute Neut 7.1 X10 3/uL Normal 2.0-7.7 [facility] Comment on above: Performed By: #### L 100.0100, L500.4050, [id number] ####[facility] [address] [place], [address] Basophils/100 WBC (Bld) 0.1 % Normal 0-1 [facility] Comment on above: Performed By: #### L 100.0100, L500.4050, [id number] ####[facility] [address] [place], [address] Eosinophils/100 WBC (Bld) 0.6 % Normal 0-5 [facility] Comment on above: Performed By: #### L 100.0100, L500.4050, [id number] ####[facility] [address] [place], [address] Erythrocyte distribution width (RBC) [Ratio] 13.8 % Normal 11.6-14.6 [facility] Comment on above: Performed By: #### L 100.0100, L500.4050, [id number] ####[facility] [address] [place], [address] Hematocrit (Bld) [Volume fraction] 35.7 % Low 40-54 [facility] Comment on above: Performed By: #### L 100.0100, L500.4050, [id number] ####[facility] [address] [place], [address] Hemoglobin (Bld) [Mass/Vol] 12.8 g/dL Low 13.0-16.5 [facility] Comment on above: Performed By: #### L 100.0100, L500.4050, [id number] ####[facility] [address] [place], [address] IG% 0.500 Normal 0.0-0.9 [facility] Comment on above: Result Comment: IG% - Immature Granulocytes (promyelocytes, myelocytes andmetamyelocytes) > 1% indicates that a LEFT SHIFT is Present. Performed By: #### L 100.0100, L500.4050, L501.2450 ####[facility] [address] [place], [address] Lymphocytes/100 WBC (Bld) 9.1 % Low 19-41 [facility] Comment on above: Performed By: #### L 100.0100, L500.4050, [id number] ####[facility] [address] [place], [address] MCH (RBC) [Entitic mass] 29.1 pg Normal 27.0-32.0 [facility] Comment on above: Performed By: #### L 100.0100, L500.4050, [id number] ####[facility] [address] [place], [address] MCHC (RBC) [Mass/Vol] 35.9 g/dL Normal 32-36 [facility] Comment on above: Performed By: #### L 100.0100, L500.4050, [id number] ####[facility] [address] [place], [address] MCV (RBC) [Entitic vol] 81.1 fL Normal 80-94 [facility] Comment on above: Performed By: #### L 100.0100, [id number], [id number] ####[facility] [address] [place], [address] Monocytes/100 WBC (Bld) 10.2 % High 0-10 [facility] Comment on above: Performed By: #### L 100.0100, L500.4050, [id number] ####[facility] [address] [place], [address] Neutrophils/100 WBC (Bld) 79.5 % High 47-70 [facility] Comment on above: Performed By: #### L 100.0100, L500.4050, [id number] ####[facility] [address] [place], [address] Nucleated RBC (Bld) [#/Vol] 0 10*3/uL Normal 0-5 [facility] Comment on above: Performed By: #### L 100.0100, L500.4050, [id number] ####[facility] [address] [place], [address] Platelet mean volume (Bld) [Entitic vol] 10.5 fL Normal 6.2-12.0 [facility] Comment on above: Performed By: #### L 100.0100, L500.4050, [id number] ####[facility] [address] [place], [address] Platelets (Bld) [#/Vol] 225 10*3/uL Normal 150-450 [facility] Comment on above: Performed By: #### L 100.0100, L500.4050, [id number] ####[facility] [address] [place], [address] RBC (Bld) [#/Vol] 4.40 10*6/uL Low 4.6-6.2 [facility] Comment on above: Performed By: #### L 100.0100, L500.4050, [id number] ####[facility] [address] [place], [address] RDW SD 40.2 fl Normal 35.1-43.9 [facility] Comment on above: Performed By: #### L 100.0100, L500.4050, [id number] ####[facility] [address] [place], [address] WBC (Bld) [#/Vol] 8.9 10*3/uL Normal 4.4-11.0 [facility] Comment on above: Performed By: #### L 100.0100, L500.4050, [id number] ####[facility] [address] [place], [address] CDIFF (PCR)on 11-24-2024 CDIFF C diff DNA Spec Ql ROBIN+probe Reference Range: Negative Cepheid GeneXpert: polymerase chain reaction (PCR) 027 027 NAP1-B1 Presumptive Negative *for epidemiolologic???use C. Diff PCR Negative- No toxigenic C. Diff Detected Normal [facility] Comment on above: Performed By: #### M 100.0605, M100.637, M100.6796 ####[facility] [address] [facility] [address] [place], [place], [address] Calcium [Mass/Vol]Ordered By : Dannielle Boyce on 11-24-2024 Serum or plasma calcium measurement (mass/volume) 9.3 mg/dL 7.6-11.0 [facility] Carbon dioxide, total [Moles /volume] in Central venous bloodOrdered By: Dannielle Boyce on 11-24-2024 Carbon dioxide, total [Moles/volume] in Central venous blood 21.0 mmol/L 21.0-32.0 [facility] Chloride assayOrdered By: Yumiko Boyce on 11-24-2024 Chloride assay 82 mmol/L Low 98-108 [facility] Clarity (U)Ordered By: Emilee Devlin on 11-24-2024 Urine clarity Sl. Cloudy Clear [facility] Clostridium difficile detect ion by polymerase chain reactionOrdered By: Ross Crump on 11-24-2024 C. difficile DNA ROBIN+probe Ql (Unsp spec) [facility] Color (U)Ordered By: Raj Devlin on 11-24-2024 Urine color determination Yellow Yellow [facility] Comprehensive Metabolic Prof ilon 11-24-2024 Albumin [Mass/Vol] 4.2 g/dL Normal 3.4-4.8 [facility] Comment on above: Performed By: #### L 100.0100, L500.4050, L501.2450 ####[facility] [address] [place], [address] Albumin/Globulin [Mass ratio] 1.2 {ratio} Normal 0.9-2.4 [facility] Comment on above: Performed By: #### L 100.0100, L500.4050, L501.2450 ####[facility] [address] [place], [address] ALK PHOS 116 U/L Normal 40-129 [facility] Comment on above: Performed By: #### L 100.0100, L500.4050, L501.2450 ####[facility] [address] [place], [address] ALT [Catalytic activity/Vol] 32 U/L Normal <=46 [facility] Comment on above: Performed By: #### L 100.0100, L500.4050, L501.2450 ####[facility] [address] [place], [address] AST [Catalytic activity/Vol] 34 U/L Normal <=37 [facility] Comment on above: Performed By: #### L 100.0100, L500.4050, [id number] ####[facility] [address] [place], [address] Bilirubin [Mass/Vol] 0.31 mg/dL Normal 0.00-1.30 [facility] Comment on above: Performed By: #### L 100.0100, L500.4050, L501.2450 ####[facility] [address] [place], [address] BUN/CRE 32.4 RATIO High 10-20 [facility] Comment on above: Performed By: #### L 100.0100, L500.4050, [id number] ####[facility] [address] [place], [address] Calcium [Mass/Vol] 9.3 mg/dL Normal 7.6-11.0 [facility] Comment on above: Performed By: #### L 100.0100, L500.4050, L501.2450 ####[facility] [address] [place], [address] Chloride [Moles/Vol] 82 mmol/L Low 98-108 [facility] Comment on above: Performed By: #### L 100.0100, L500.4050, [id number] ####[facility] [address] [place], [address] CO2 [Moles/Vol] 21.0 mmol/L Normal 21.0-32.0 [facility] Comment on above: Performed By: #### L 100.0100, L500.4050, L501.2450 ####[facility] [address] [place], [address] Creatinine [Mass/Vol] 4.42 mg/dL High 0.70-1.20 [facility] Comment on above: Performed By: #### L 100.0100, L500.4050, L501.2450 ####[facility] [address] [place], [address] ECRCL 14.18 ml/min Low 50-250 [facility] Comment on above: Performed By: #### L 100.0100, L500.4050, [id number] ####[facility] [address] [place], [address] GAP 24 High 5-15 [facility] Comment on above: Performed By: #### L 100.0100, L500.4050, L501.2450 ####[facility] [address] [place], [address] GFR/1.73 sq M.predicted among non-blacks MDRD (S/P/Bld) [Vol rate/Area] 14 mL/min/{1.73_m2} Low >60 [facility] Comment on above: Result Comment: mL/m in/1.73m2 CKD-EPI Creatinine Equation (2020) Performed By: #### L 100.0100, L500.4050, L501.2450 ####[facility] [address] [place], [address] Globulin (S) [Mass/Vol] 3.5 g/dL Normal 2.2-4.2 [facility] Comment on above: Performed By: #### L 100.0100, L500.4050, L501.2450 ####[facility] [address] [place], [address] Glucose [Mass/Vol] 181 mg/dL High 70-99 [facility] Comment on above: Performed By: #### L 100.0100, L500.4050, L501.2450 ####[facility] [address] [place], [address] Potassium [Moles/Vol] 3.1 mmol/L Low 3.3-5.1 [facility] Comment on above: Performed By: #### L 100.0100, L500.4050, [id number] ####[facility] [address] [place], [address] Sodium [Moles/Vol] 128 mmol/L Low 133-145 [facility] Comment on above: Performed By: #### L 100.0100, L500.4050, L501.2450 ####[facility] [address] [place], [address] T PROT 7.7 g/dL Normal 5.9-8.4 [facility] Comment on above: Performed By: #### L 100.0100, L500.4050, L501.2450 ####[facility] [address] [place], [address] Urea nitrogen [Mass/Vol] 143 mg/dL Invalid Interpretation Code 11-23 [facility] Comment on above: Result Comment: Crit ical Result(s) Called LSPARR at: 2055 by:LYDIA??Results read back by same. Performed By: #### L 100.0100, L500.4050, L501.2450 ####[facility] [address] [place], [place], [address] Creatinine (U) [Mass/Vol]Ord ered By: Claudio Devlin on 11-24-2024 Urine creatinine measurement (mass/volume) 42.10 mg/dL 39.00-259.0 0 [facility] Creatinine [Mass/Vol]Ordered By: Dannielle Boyce on 11-24-2024 Serum creatinine measurement (mass/volume) 4.42 mg/dL High 0.70-1.20 [facility] Emergency Department Summary on 11-24-2024 Emergency Department Summary Normal [facility] Eosinophil percentageOrdered By: Dannielle Boyce on 11-24-2024 Eosinophils/100 WBC (Bld) 0.6 % 0-5 [facility] Eosinophil percentage 0.6 % 0-5 [facility] Erythrocyte distribution wid th (RBC) [Ratio]Ordered By: Dannielle Boyce on 11-24-2024 Erythrocyte distribution width ratio 13.8 % 11.6-14.6 [facility] Erythrocyte distribution width standard deviation 40.2 fl 35.1-43.9 [facility] Estimation of creatinine all aranceOrdered By: Dannielle Boyce on 11-24-2024 Estimation of creatinine clearance 14.18 ml/min Low 50-250 [facility] GFR/1.73 sq M.predicted ivette g non-blacks MDRD (S/P/Bld) [Vol rate/Area]Ordered By: Dannielle Boyce on 11-24-2024 Glomerular filtration rate (GFR) estimation/1.73 sq m using serum, plasma, or whole b 14 Low >60 [facility] Glucose [Mass/Vol]Ordered By : Dannielle Boyce on 11-24-2024 Serum glucose measurement (mass/volume) 181 mg/dL High 70-99 [facility] H AND P Exam - Hospitaliston 11-24-2024 H&P Exam - Hospitalist Normal [facility] Hematocrit Auto (Bld) [Volum e fraction]Ordered By: Dannielle Boyce on 11-24-2024 Automated blood hematocrit (percentage) 35.7 % Low 40-54 [facility] Hemoglobin measurementOrdere d By: Dannielle Boyce on 11-24-2024 Hemoglobin measurement 12.8 g/dL Low 13.0-16.5 [facility] Hyaline casts LM.LPF (Urine sed) [#/Area]Ordered By: Claudio Devlin on 11-24-2024 Hyaline casts (Urine sed) [#/Area] 0 /[LPF] 0-5 [facility] Urine sediment hyaline cast count by microscopy (number/low power field) 0-5 SEEN /lpf 0-5 [facility] Immature granulocytes/100 WB C Auto (Bld)Ordered By: Dannielle Boyce on 11-24-2024 Immature granulocytes/100 WBC (Bld) 0.500 % 0.0-0.9 [facility] Comment on above: IG% - Immature Granu locytes (promyelocytes, myelocytes and metamyelocytes) > 1% indicates that a LEFT SHIFT is Present. Automated immature granulocyte percentage 0.500 % 0.0-0.9 [facility] Ketones Test strip Ql (U)Ord ered By: Claudio Devlin on 11-24-2024 Ketones Ql (U) Negative Negative [facility] Laboratory - Chemistry and C hemistry - challengeOrdered By: Dannielle Boyce on 11-24-2024 AST [Catalytic activity/Vol] 34 U/L <38 [facility] Leukocyte esterase Test stri p Ql (U)Ordered By: Claudio Devlin on 11-24-2024 Urine leukocyte esterase detection by dipstick 500 /ul High Negative [facility] Lipaseon 11-24-2024 Lipase [Catalytic activity/Vol] 1112 U/L High 13-75 [facility] Comment on above: Result Comment: Ousmane clemente note:LIPASE revised reference range effective 22.New Lipase methodology. Expected to produce lower valuesthan the previous assay method.NEW Reference Range: 13 - 75 U/L Performed By: #### L 100.0100, L500.4050, L501.2450 ####[facility] [address] [place], [address] Lipase measurementOrdered By : Dannielle Boyce on 11-24-2024 Lipase measurement 1112 U/L High 13-75 [facility] Lymphocytes Auto (Unsp spec) [#/Vol]Ordered By: Dannielle Boyce on 11-24-2024 Absolute lymphocyte count 0.81 X10^3/uL Low 0.83-4.51 [facility] Lymphocytes/100 WBC Auto (Un sp spec)Ordered By: Dannielle Boyce on 11-24-2024 Automated lymphocyte count as percentage of total leukocytes 9.1 % Low 19-41 [facility] MCV (RBC) [Entitic vol]Order ed By: Dannielle Boyce on 11-24-2024 MCV (mean corpuscular volume) determination 81.1 fL 80-94 [facility] Magnesiumon 11-24-2024 Magnesium [Mass/Vol] 2.4 mg/dL High 1.5-2.2 [facility] Comment on above: Performed By: #### L 501.2300, L501.5200 ####[facility] [address] [place], [place], [address] Magnesium (Unsp spec) [Mass/ Vol]Ordered By: Claudio Devlin on 11-24-2024 Magnesium measurement (mass/volume) 2.4 mg/dL High 1.5-2.2 [facility] Magnesium measurement (mass/ volume)Ordered By: Claudio Devlin on 11-24-2024 Magnesium (Unsp spec) [Mass/Vol] 2.4 mg/dL High 1.5-2.2 [facility] Mean corpuscular hemoglobin (MCH) determinationOrdered By: Dannielle Boyce on 11-24-2024 Mean corpuscular hemoglobin (MCH) determination 29.1 pg 27.0-32.0 [facility] Mean corpuscular hemoglobin concentration (MCHC) determinationOrdered By: Dannielle Boyce on 11-24-2024 Mean corpuscular hemoglobin concentration (MCHC) determination 35.9 g/dL 32-36 [facility] Mean platelet volume determi nationOrdered By: Dannielle Boyce on 11-24-2024 Mean platelet volume determination 10.5 fl 6.2-12.0 [facility] Microscopic analysis of urin e for red blood cells (RBC)Ordered By: Claudio Devlin on 11-24-2024 Microscopic analysis of urine for red blood cells (RBC) 0-5 SEEN /hpf 0-5 [facility] Microscopic analysis of urine for red blood cells (RBC) 0-5 SEEN /hpf 0-5 [facility] Monocyte percentageOrdered B y: Dannielle Boyce on 11-24-2024 Monocytes/100 WBC (Bld) 10.2 % High 0-10 [facility] Monocyte percentage 10.2 % High 0-10 [facility] Mucus LM Ql (Urine sed)Order ed By: Claudio Devlin on 11-24-2024 Mucus Ql (Urine sed) 0 SEEN /hpf [facility] Neutrophil percentageOrdered By: Dannielle Boyce on 11-24-2024 Neutrophils/100 WBC (Bld) 79.5 % High 47-70 [facility] Neutrophil percentage 79.5 % High 47-70 [facility] Nitrite Test strip Ql (U)Ord ered By: Claudio Devlin on 11-24-2024 Nitrite Ql (U) Negative Negative [facility] No Panel InformationOrdered By: Dannielle Boyce on 11-24-2024 34 U/L <38 [facility] Nucleated red blood cell per centageOrdered By: Dannielle Boyce on 11-24-2024 Nucleated RBC/100 WBC (Bld) [Ratio] 0 % 0-5 [facility] Nucleated red blood cell percentage 0 % 0-5 [facility] Phosphoruson 11-24-2024 Phosphate [Mass/Vol] 6.9 mg/dL High 2.7-4.5 [facility] Comment on above: Performed By: #### L 501.2300, L501.5200 ####[facility] [address] [place], [address] Platelet countOrdered By: Yumiko Boyce on 11-24-2024 Platelet count 225 K/mm3 150-450 [facility] Potassium (Unsp spec) [Mass/ Vol]Ordered By: Dannielle Boyce on 11-24-2024 Potassium measurement (mass/volume) 3.1 mmol/L Low 3.3-5.1 [facility] Protein Test strip Ql (U)Ord ered By: Claudio Devlin on 11-24-2024 Protein Ql (U) 30 mg/dl High Negative [facility] Urine protein assay by test strip, semi-quantitative 30 mg/dl High Negative [facility] RBC Auto (Bld) [#/Vol]Ordere d By: Dannielle Boyce on 11-24-2024 Automated blood erythrocyte count 4.40 M/mm3 Low 4.6-6.2 [facility] Serum globulin measurementOr dered By: Dannielle Boyce on 11-24-2024 Globulin (S) [Mass/Vol] 3.5 g/dL 2.2-4.2 [facility] Serum globulin measurement 3.5 g/dL 2.2-4.2 [facility] Serum or plasma alanine asif otransferase (ALT) measurementOrdered By: Dannielle Boyce on 11-24-2024 ALT [Catalytic activity/Vol] 32 U/L <47 [facility] Serum or plasma albumin isael urement (mass/volume)Ordered By: Dannielle Boyce on 11-24-2024 Albumin [Mass/Vol] 4.2 g/dL 3.4-4.8 [facility] Serum or plasma albumin/glob ulin mass ratioOrdered By: Dannielle Boyce on 11-24-2024 Albumin/Globulin [Mass ratio] 1.2 {ratio} 0.9-2.4 [facility] Serum or plasma alkaline leo sphatase measurementOrdered By: Dannielle Boyce on 11-24-2024 ALP [Catalytic activity/Vol] 116 U/L 40-129 [facility] Serum phosphorus measurement Ordered By: Claudio Devlin on 11-24-2024 Serum phosphorus measurement 6.9 mg/dL High 2.7-4.5 [facility] Sodium (U) [Moles/Vol]Ordere d By: Claudio Devlin on 11-24-2024 Urine sodium measurement (moles/volume) 38 mmol/L Not Establ. [place] [facility] Sodium levelOrdered By: Guanako Boyce on 11-24-2024 Sodium level 128 mmol/L Low 133-145 [facility] Specific gravity (U) [Rel de nsity]Ordered By: Claudio Devlin on 11-24-2024 Urine specific gravity measurement 1.015 1.002-1.030 [facility] Squamous epithelial cells de tection in urine sediment by light microscopyOrdered By: Claudio Devlin on 11-24-2024 Epithelial cells.squamous LM Ql (Urine sed) 0 SEEN /hpf 0-5 [facility] Squamous epithelial cells detection in urine sediment by light microscopy 0 SEEN /hpf [facility] Stool Lactoferrin/WBCon 11-06 WBCST Normal Reference Ran ge = Negative Fecal WBC Lactoferrin Negative: No Fecal WBC Lactoferrin present Normal [facility] Comment on above: Performed By: #### M 100.0605, M100.637, M100.8396 ####[facility] [address] [place], [place], [id number] Stool lactoferrin detection by immunoassayOrdered By: Ross Crump on 11-24-2024 Lactoferrin IA Ql (Stl) [facility] Total proteinOrdered By: Duncan Boyce on 11-24-2024 Protein [Mass/Vol] 7.7 g/dL 5.9-8.4 [facility] Total protein 7.7 g/dL 5.9-8.4 [facility] Urea nitrogen [Mass/Vol]Orde red By: Dannielle Boyce on 11-24-2024 Serum or plasma urea nitrogen measurement (mass/volume) 143 mg/dL High 4-19 [facility] Urinalysis, Completeon 11-24 BACTERIA 1+ /hpf Normal None Seen [facility] Comment on above: Order Comment: JASWINDER TER SPECIMEN Performed By: #### L 400.0001, M100.2200 ####[facility] [address] [place], [place], [id number] CAST,HYALINE 0-5 SEEN Normal 0-5 [facility] Comment on above: Order Comment: JASWINDER TER SPECIMEN Performed By: #### L 400.0001, .2199 ####[facility] [address] [place], [address] RBC 0-5 SEEN Normal 0-5 [facility] Comment on above: Order Comment: JASWINDER TER SPECIMEN Performed By: #### L 400.0001, .2199 ####[facility] [address] [place], [address] WBC 25-50 SEEN Normal 0-5 [facility] Comment on above: Order Comment: JASWINDER TER SPECIMEN Performed By: #### L 400.0001, ####[facility] [address] [place], [address] YEAST 1+ /hpf Normal None Seen [facility] Comment on above: Order Comment: JASWINDER TER SPECIMEN Performed By: #### L 400.0001, ####[facility] [address] [place], [address] EPI,SQUAMOUS 0 SEEN Normal 0-5 [facility] Comment on above: Order Comment: JASWINDER TER SPECIMEN Performed By: #### L 400.0001, ####[facility] [address] [place], [address] Mucus Ql (Urine sed) 0 SEEN Normal [facility] Comment on above: Order Comment: JASWINDER TER SPECIMEN Performed By: #### L 400.0001, ####[facility] [address] [place], [address] BACTERIA Normal None Seen [facility] Comment on above: Order Comment: JASWINDER TER SPECIMEN Result Comment: Ivet almaraz OM: Ordered Performed By: #### L 400.0001 ####[facility] [address] [place], [address] BILIRUBIN URINE Normal Negative [facility] Comment on above: Order Comment: JASWINDER TER SPECIMEN Result Comment: Canc elled via OM: MD Ordered Performed By: #### L [id number] ####[facility] [address] [place], [address] Clarity (U) Normal Clear [facility] Comment on above: Order Comment: JASWINDER TER SPECIMEN Result Comment: Canc elled via OM: MD Ordered Performed By: #### L [id number] ####[facility] [address] [place], [address] Color (U) Normal Yellow [facility] Comment on above: Order Comment: JASWINDER TER SPECIMEN Result Comment: Canc elled via OM: MD Ordered Performed By: #### L 400.0001 ####[facility] [address] [place], [address] EPI,SQUAMOUS Normal 0-5 [facility] Comment on above: Order Comment: JASWINDER TER SPECIMEN Result Comment: Canc elled via OM: MD Ordered Performed By: #### L 400.0001 ####[facility] [address] [place], [address] GLUCOSE, UR Normal Normal [facility] Comment on above: Order Comment: JASWINDER TER SPECIMEN Result Comment: Canc elled via OM: MD Ordered Performed By: #### L [id number] ####[facility] [address] [place], [address] KETONE UR Normal Negative [facility] Comment on above: Order Comment: JASWINDER TER SPECIMEN Result Comment: Canc elled via OM: MD Ordered Performed By: #### L [id number] ####[facility] [address] [place], [address] LEUK ESTERASE Normal Negative [facility] Comment on above: Order Comment: JASWINDER TER SPECIMEN Result Comment: Canc elled via OM: MD Ordered Performed By: #### L [id number] ####[facility] [address] [place], [address] Mucus Ql (Urine sed) Normal [facility] Comment on above: Order Comment: JASWINDER TER SPECIMEN Result Comment: Canc elled via OM: MD Ordered Performed By: #### L 400.0001 ####[facility] [address] [place], [address] Nitrite Ql (U) Normal Negative [facility] Comment on above: Order Comment: JASWINDER TER SPECIMEN Result Comment: Canc elled via OM: MD Ordered Performed By: #### L [id number] ####[facility] [address] [place], [address] OCCULT BLOOD-UR Normal Negative [facility] Comment on above: Order Comment: JASWINDER TER SPECIMEN Result Comment: Canc elled via OM: MD Ordered Performed By: #### L [id number] ####[facility] [address] [place], [address] pH UR Normal 5.0 - 8.0 [facility] Comment on above: Order Comment: JASWINDER TER SPECIMEN Result Comment: Canc elled via OM: MD Ordered Performed By: #### L 400.0001 ####[facility] [address] [place], [address] PROT DIPSTX Normal Negative [facility] Comment on above: Order Comment: JASWINDER TER SPECIMEN Result Comment: Canc elled via OM: MD Ordered Performed By: #### L [id number] ####[facility] [address] [place], [address] RBC Normal 0-5 [facility] Comment on above: Order Comment: JASWINDER TER SPECIMEN Result Comment: Canc elled via OM: MD Ordered Performed By: #### L 400.0001 ####[facility] [address] [place], [address] SP.GR. DIPSTX Normal 1.002-1.030 [facility] Comment on above: Order Comment: JASWINDER TER SPECIMEN Result Comment: Canc elled via OM: MD Ordered Performed By: #### L [id number] ####[facility] [address] [place], [address] UR Preservative Normal [facility] Comment on above: Order Comment: JASWINDER TER SPECIMEN Result Comment: Canc elled via OM: MD Ordered Performed By: #### L [id number] ####[facility] [address] [place], [address] UROBILI Normal Normal [facility] Comment on above: Order Comment: JASWINDER TER SPECIMEN Result Comment: Canc elled via OM: MD Ordered Performed By: #### L [id number] ####[facility] [address] [place], [address] WBC Normal 0-5 [facility] Comment on above: Order Comment: JASWINDER TER SPECIMEN Result Comment: Canc elled via OM: MD Ordered Performed By: #### L [id number] ####[facility] [address] [place], [address] Urine blood detectionOrdered By: Claudio Devlin on 11-24-2024 Urine blood detection 50 /ul High Negative [facility] Urine clarityOrdered By: Carol Ann Devlin on 11-24-2024 Clarity (U) Sl. Cloudy Clear [facility] Urine color determinationOrd ered By: Claudio Devlin on 11-24-2024 Color (U) Yellow Yellow [facility] Urine creatinine measurement (mass/volume)Ordered By: Claudio Devlin on 11-24-2024 Creatinine (U) [Mass/Vol] 42.10 mg/dL 39.00-259.0 0 [facility] Urine cultureOrdered By: Carol Ann Devlin on 11-24-2024 Bacteria identified Cx Nom (U) Presumptive C albicans Abnormal [facility] Urine culture Presumptive C albicans Abnormal [facility] Urine glucose detectionOrder ed By: Claudio Devlin on 11-24-2024 Glucose Ql (U) Normal mg/dl Normal [facility] Urine glucose detection Normal mg/dl Normal [facility] Urine leukocyte esterase det ection by dipstickOrdered By: Claudio Devlin on 11-24-2024 Leukocyte esterase Test strip Ql (U) 500 /ul High Negative [facility] Urine pHOrdered By: Cleveland Devlin on 11-24-2024 pH (U) 5.0 [pH] 5.0 - 8.0 [facility] Urine sediment bacteria coun t by microscopy (number/high power field)Ordered By: Claudio Devlin on 11-24-2024 Bacteria LM.HPF (Urine sed) [#/Area] 1 /[HPF] None Seen [facility] Urine sediment bacteria count by microscopy (number/high power field) 1+ /hpf None Seen [facility] Urine sediment yeast count b y microscopy (number/high powered field)Ordered By: Claudio Devlin on 11-24-2024 Yeast LM.HPF (Urine sed) [#/Area] 1 /[HPF] None Seen [facility] Urine sodium measurement (mo les/volume)Ordered By: Claudio Devlin on 11-24-2024 Sodium (U) [Moles/Vol] 38 mmol/L Not Establ. [facility] Urine specific gravity measu rementOrdered By: Claudio Devlin on 11-24-2024 Specific gravity (U) [Rel density] 1.015 1.002-1.030 [facility] Urine total bilirubin detect ion by test stripOrdered By: Claudio Devlin on 11-24-2024 Urine total bilirubin detection by test strip Negative Negative [facility] Urine urobilinogen measureme ntOrdered By: Claudio Devlin on 11-24-2024 Urobilinogen Ql (U) Normal mg/dl Normal [facility] White blood cell (WBC) count Ordered By: Dannielle Boyce on 11-24-2024 White blood cell (WBC) count 8.9 K/mm3 4.4-11.0 [facility] White blood cell countOrdere d By: Claudio Devlin on 11-24-2024 White blood cell count 25-50 SEEN /hpf 0-5 [facility] White blood cell count 25-50 SEEN /hpf 0-5 [facility] pH (U)Ordered By: Claudio Devlin on 11-24-2024 Urine pH 5.0 5.0 - 8.0 [facility] Urine Cultureon 11-21-2024 URC Normal [facility] Comment on above: Performed By: #### M 100.0644 ####[facility] [address] [place], [address] ALP [Catalytic activity/Vol] Ordered By: Kendy Modi on 11-19-2024 Serum or plasma alkaline phosphatase measurement 131 U/L High 40-129 [facility] ALT [Catalytic activity/Vol] Ordered By: Kendy Modi on 11-19-2024 Serum or plasma alanine aminotransferase (ALT) measurement 33 U/L <47 [facility] Absolute lymphocyte countOrd ered By: Kendy Modi on 11-19-2024 Lymphocytes Auto (Unsp spec) [#/Vol] 1.06 10*3/uL 0.83-4.51 [facility] Absolute neutrophil countOrd ered By: Kendy Modi on 11-19-2024 Neutrophils (Bld) [#/Vol] 7.2 10*3/uL 2.0-7.7 [facility] Absolute neutrophil count 7.2 X10^3/uL 2.0-7.7 [facility] Albumin [Mass/Vol]Ordered By : Kendy Modi on 11-19-2024 Serum or plasma albumin measurement (mass/volume) 4.7 g/dL 3.4-4.8 [facility] Albumin/Globulin [Mass ratio ]Ordered By: Kendy Modi on 11-19-2024 Serum or plasma albumin/globulin mass ratio 1.1 RATIO 0.9-2.4 [facility] Anion gap [Moles/Vol]Ordered By: Kendy Modi on 11-19-2024 Anion gap in Serum or Plasma 23 High 12-19 [facility] Anion gap in Serum or Plasma Ordered By: Kendy Modi on 11-19-2024 Anion gap [Moles/Vol] 23 mmol/L High 12-19 [facility] Automated lymphocyte count a s percentage of total leukocytesOrdered By: Kendy Modi on 11-19-2024 Lymphocytes/100 WBC Auto (Unsp spec) 11.8 % Low 19-41 [facility] BUN/creatinine ratioOrdered By: Kendy Modi on 11-19-2024 Urea nitrogen/Creatinine [Mass ratio] 31.0 mg/mg High 10-20 [facility] BUN/creatinine ratio 31.0 RATIO High 10-20 [facility] Basophil percentageOrdered B y: Kendy Modi on 11-19-2024 Basophils/100 WBC (Bld) 0.1 % 0-1 [facility] Basophil percentage 0.1 % 0-1 [facility] Bilirubin, totalOrdered By: Kendy Modi on 11-19-2024 Bilirubin [Mass/Vol] 0.38 mg/dL 0.00-1.30 [facility] Bilirubin, total 0.38 mg/dL 0.00-1.30 [facility] CBC W/Diff, Automatedon 11-05 Absolute Lymph 1.06 X10 3/uL Normal 0.83-4.51 [facility] Comment on above: Order Comment: Order Date: 11/19/24Order Info: 0184-1 - CBCD Performed By: #### L [id number], L100.0100 ####[facility] [address] [place], [address] Absolute Neut 7.2 X10 3/uL Normal 2.0-7.7 [facility] Comment on above: Order Comment: Order Date: 11/19/24Order Info: 0184-1 - CBCD Performed By: #### L [id number], L100.0100 ####[facility] [address] [place], [address] Basophils/100 WBC (Bld) 0.1 % Normal 0-1 [facility] Comment on above: Order Comment: Order Date: 11/19/24Order Info: 0184-1 - CBCD Performed By: #### L [id number], L100.0100 ####[facility] [address] [place], [address] Eosinophils/100 WBC (Bld) 0.6 % Normal 0-5 [facility] Comment on above: Order Comment: Order Date: 11/19/24Order Info: 0184-1 - CBCD Performed By: #### L 500.4050, L100.0100 ####[facility] [address] [place], [address] Erythrocyte distribution width (RBC) [Ratio] 14.5 % Normal 11.6-14.6 [facility] Comment on above: Order Comment: Order Date: 11/19/24Order Info: 0184-1 - CBCD Performed By: #### L [id number], L100.0100 ####[facility] [address] [place], [address] Hematocrit (Bld) [Volume fraction] 40.9 % Normal 40-54 [facility] Comment on above: Order Comment: Order Date: 11/19/24Order Info: 0184-1 - CBCD Performed By: #### L [id number], L100.0100 ####[facility] [address] [place], [address] Hemoglobin (Bld) [Mass/Vol] 13.8 g/dL Normal 13.0-16.5 [facility] Comment on above: Order Comment: Order Date: 11/19/24Order Info: 0184-1 - CBCD Performed By: #### L 500.4050, L100.0100 ####[facility] [address] [place], [address] IG% 0.400 Normal 0.0-0.9 [facility] Comment on above: Order Comment: Order Date: 11/19/24Order Info: 0184-1 - CBCD Result Comment: IG% - Immature Granulocytes (promyelocytes, myelocytes andmetamyelocytes) > 1% indicates that a LEFT SHIFT is Present. Performed By: #### L 500.4050, L100.0100 ####[facility] [address] [place], [address] Lymphocytes/100 WBC (Bld) 11.8 % Low 19-41 [facility] Comment on above: Order Comment: Order Date: 11/19/24Order Info: 0184-1 - CBCD Performed By: #### L [id number], L100.0100 ####[facility] [address] [place], [address] MCH (RBC) [Entitic mass] 28.8 pg Normal 27.0-32.0 [facility] Comment on above: Order Comment: Order Date: 11/19/24Order Info: 0184-1 - CBCD Performed By: #### L [id number], L100.0100 ####[facility] [address] [place], [address] MCHC (RBC) [Mass/Vol] 33.7 g/dL Normal 32-36 [facility] Comment on above: Order Comment: Order Date: 11/19/24Order Info: 0184-1 - CBCD Performed By: #### L 500.4050, L100.0100 ####[facility] [address] [place], [address] MCV (RBC) [Entitic vol] 85.2 fL Normal 80-[address] [facility] Comment on above: Order Comment: Order Date: 11/19/24Order Info: 0184-1 - CBCD Performed By: #### L 500.4050, L100.0100 ####[facility] [address] [place], [address] Monocytes/100 WBC (Bld) 7.8 % Normal 0-[address] [facility] Comment on above: Order Comment: Order Date: 11/19/24Order Info: 0184-1 - CBCD Performed By: #### L 500.4050, L100.0100 ####[facility] [address] [place], [address] Neutrophils/100 WBC (Bld) 79.3 % High 47-70 [facility] Comment on above: Order Comment: Order Date: 11/19/24Order Info: 0184-1 - CBCD Performed By: #### L 500.4050, L100.0100 ####[facility] [facility] [address] [place], [address] Nucleated RBC (Bld) [#/Vol] 0 10*3/uL Normal 0-5 [facility] Comment on above: Order Comment: Order Date: 11/19/24Order Info: 0184-1 - CBCD Performed By: #### L 500.4050, L100.0100 ####[facility] [address] [place], [address] Platelet mean volume (Bld) [Entitic vol] 10.4 fL Normal 6.2-12.0 [facility] Comment on above: Order Comment: Order Date: 11/19/24Order Info: 0184-1 - CBCD Performed By: #### L 500.4050, L100.0100 ####[facility] [address] [place], [address] Platelets (Bld) [#/Vol] 287 10*3/uL Normal 150-450 [facility] Comment on above: Order Comment: Order Date: 11/19/24Order Info: 0184-1 - CBCD Performed By: #### L 500.4050, L100.0100 ####[facility] [address] [place], [address] RBC (Bld) [#/Vol] 4.80 10*6/uL Normal 4.6-6.2 [facility] Comment on above: Order Comment: Order Date: 11/19/24Order Info: 0184-1 - CBCD Performed By: #### L 500.4050, L100.0100 ####[facility] [address] [place], [address] RDW SD 44.7 fl High 35.1-43.9 [facility] Comment on above: Order Comment: Order Date: 11/19/24Order Info: 0184-1 - CBCD Performed By: #### L 500.4050, L100.0100 ####[facility] [address] [place], [address] WBC (Bld) [#/Vol] 9.0 10*3/uL Normal 4.4-11.0 [facility] Comment on above: Order Comment: Order Date: 11/19/24Order Info: 0184-1 - CBCD Performed By: #### L 500.4050, L100.0100 ####[facility] [address] [place], [address] Calcium [Mass/Vol]Ordered By : Kendy Modi on 11-19-2024 Serum or plasma calcium measurement (mass/volume) 9.8 mg/dL 7.6-11.0 [facility] Carbon dioxide, total [Moles /volume] in Central venous bloodOrdered By: Kendy Modi on 11-19-2024 CO2 [Moles/Vol] 20.2 mmol/L Low 21.0-32.0 [facility] Carbon dioxide, total [Moles/volume] in Central venous blood 20.2 mmol/L Low 21.0-32.0 [facility] Chloride assayOrdered By: Keerthi Modi on 11-19-2024 Chloride [Moles/Vol] 89 mmol/L Low 98-108 [facility] Chloride assay 89 mmol/L Low 98-108 [facility] Comprehensive Metabolic Prof ilon 11-19-2024 Albumin [Mass/Vol] 4.7 g/dL Normal 3.4-4.8 [facility] Comment on above: Order Comment: Order Date: 11/19/24Order Info: 0786-1 - CMP Performed By: #### L 500.4050, L100.0100 ####[facility] [address] [place], [address] Albumin/Globulin [Mass ratio] 1.1 {ratio} Normal 0.9-2.4 [facility] Comment on above: Order Comment: Order Date: 11/19/24Order Info: 0786-1 - CMP Performed By: #### L 500.4050, L100.0100 ####[facility] [address] [place], [address] ALK PHOS 131 U/L High 40-129 [facility] Comment on above: Order Comment: Order Date: 11/19/24Order Info: 0786-1 - CMP Performed By: #### L 500.4050, L100.0100 ####[facility] [address] [place], [address] ALT [Catalytic activity/Vol] 33 U/L Normal <=46 [facility] Comment on above: Order Comment: Order Date: 11/19/24Order Info: 0786-1 - CMP Performed By: #### L 500.4050, L100.0100 ####[facility] [address] [place], [address] AST [Catalytic activity/Vol] 32 U/L Normal <=37 [facility] Comment on above: Order Comment: Order Date: 11/19/24Order Info: 0786-1 - CMP Performed By: #### L 500.4050, L100.0100 ####[facility] [address] [place], [address] Bilirubin [Mass/Vol] 0.38 mg/dL Normal 0.00-1.30 [facility] Comment on above: Order Comment: Order Date: 11/19/24Order Info: 0786-1 - CMP Performed By: #### L 500.4050, L100.0100 ####[facility] [address] [place], [place], [address] BUN/CRE 31.0 RATIO High 10-20 [facility] Comment on above: Order Comment: Order Date: 11/19/24Order Info: 0786-1 - CMP Performed By: #### L 500.4050, L100.0100 ####[facility] [address] [place], [address] Calcium [Mass/Vol] 9.8 mg/dL Normal 7.6-11.0 [facility] Comment on above: Order Comment: Order Date: 11/19/24Order Info: 0786-1 - CMP Performed By: #### L 500.4050, L100.0100 ####[facility] [address] [place], [address] Chloride [Moles/Vol] 89 mmol/L Low 98-108 [facility] Comment on above: Order Comment: Order Date: 11/19/24Order Info: 0786-1 - CMP Performed By: #### L 500.4050, L100.0100 ####[facility] [address] [place], [address] CO2 [Moles/Vol] 20.2 mmol/L Low 21.0-32.0 [facility] Comment on above: Order Comment: Order Date: 11/19/24Order Info: 0786-1 - CMP Performed By: #### L 500.4050, L100.0100 ####[facility] [address] [place], [address] Creatinine [Mass/Vol] 3.52 mg/dL High 0.70-1.20 [facility] Comment on above: Order Comment: Order Date: 11/19/24Order Info: 0786-1 - CMP Performed By: #### L 500.4050, L100.0100 ####[facility] [address] [place], [address] GAP 23 High 5-15 [facility] Comment on above: Order Comment: Order Date: 11/19/24Order Info: 0786-1 - CMP Performed By: #### L 500.4050, L100.0100 ####[facility] [address] [place], [address] GFR/1.73 sq M.predicted among non-blacks MDRD (S/P/Bld) [Vol rate/Area] 18 mL/min/{1.73_m2} Low >60 [facility] Comment on above: Order Comment: Order Date: 11/19/24Order Info: 0786-1 - CMP Result Comment: mL/m in/1.73m2 CKD-EPI Creatinine Equation (2020) Performed By: #### L 500.4050, L100.0100 ####[facility] [address] [place], [address] Globulin (S) [Mass/Vol] 4.1 g/dL Normal 2.2-4.[address] [facility] Comment on above: Order Comment: Order Date: 11/19/24Order Info: 0786-1 - CMP Performed By: #### L 500.4050, L100.0100 ####[facility] [address] [place], [address] Glucose [Mass/Vol] 125 mg/dL High 70-99 [facility] Comment on above: Order Comment: Order Date: 11/19/24Order Info: 0786-1 - CMP Performed By: #### L 500.4050, L100.0100 ####[facility] [address] [place], [address] Potassium [Moles/Vol] 4.3 mmol/L Normal 3.3-5.1 [facility] Comment on above: Order Comment: Order Date: 11/19/24Order Info: 0786-1 - CMP Performed By: #### L 500.4050, L100.0100 ####[facility] [address] [place], [address] Sodium [Moles/Vol] 132 mmol/L Low 133-145 [facility] Comment on above: Order Comment: Order Date: 11/19/24Order Info: 0786-1 - CMP Performed By: #### L 500.4050, L100.0100 ####[facility] [address] [place], [address] T PROT 8.8 g/dL High 5.9-8.4 [facility] Comment on above: Order Comment: Order Date: 11/19/24Order Info: 0786-1 - CMP Performed By: #### L 500.4050, L100.0100 ####[facility] [address] [place], [place], [address] Urea nitrogen [Mass/Vol] 109 mg/dL Invalid Interpretation Code 4-19 [facility] Comment on above: Order Comment: Order Date: 11/19/24Order Info: 0786-1 - CMP Result Comment: Crit ical Result(s) Called at: by:??Results read back bysame.CRITICAL CALLED TO DR ALDANA AT 2103 BY [facility]. RESULTSREAD BACK BY SAME.Critical Result(s) Called at: by:??Results read back bysame. Performed By: #### L 500.4050, L100.0100 ####[facility] [address] [place], [place], [address] Creatinine [Mass/Vol]Ordered By: Kendy Modi on 11-19-2024 Serum creatinine measurement (mass/volume) 3.52 mg/dL High 0.70-1.20 [facility] Eosinophil percentageOrdered By: Kendy Modi on 11-19-2024 Eosinophils/100 WBC (Bld) 0.6 % 0-5 [facility] Eosinophil percentage 0.6 % 0-5 [facility] Erythrocyte distribution wid th (RBC) [Ratio]Ordered By: Kendy Modi on 11-19-2024 Erythrocyte distribution width ratio 14.5 % 11.6-14.6 [facility] Erythrocyte distribution width standard deviation 44.7 fl High 35.1-43.9 [facility] Erythrocyte distribution wid th ratioOrdered By: Kendy Modi on 11-19-2024 Erythrocyte distribution width (RBC) [Ratio] 14.5 % 11.6-14.6 [facility] Erythrocyte distribution wid th standard deviationOrdered By: Kendy Modi on 11-19-2024 Erythrocyte distribution width (RBC) [Ratio] 44.7 fl High 35.1-43.9 [facility] GFR/1.73 sq M.predicted ivette g non-blacks MDRD (S/P/Bld) [Vol rate/Area]Ordered By: Kendy Modi on 11-19-2024 Glomerular filtration rate (GFR) estimation/1.73 sq m using serum, plasma, or whole b 18 Low >60 [facility] Glomerular filtration rate ( GFR) estimation/1.73 sq m using serum, plasma, or whole bOrdered By: Kendy Modi on 11-19-2024 GFR/1.73 sq M.predicted among non-blacks MDRD (S/P/Bld) [Vol rate/Area] 18 mL/min/{1.73_m2} Low >60 [facility] Comment on above: mL/min/1.73m2 CKD-EP I Creatinine Equation (2020) Glucose [Mass/Vol]Ordered By : Kendy Modi on 11-19-2024 Serum glucose measurement (mass/volume) 125 mg/dL High 70-99 [facility] Hematocrit Auto (Bld) [Volum e fraction]Ordered By: Kendy Modi on 11-19-2024 Hematocrit (Bld) [Volume fraction] 40.9 % 40-54 [facility] Automated blood hematocrit (percentage) 40.9 % 40-54 [facility] Hemoglobin measurementOrdere d By: Kendy Modi on 11-19-2024 Hemoglobin (Bld) [Mass/Vol] 13.8 g/dL 13.0-16.5 [facility] Hemoglobin measurement 13.8 g/dL 13.0-16.5 [facility] Immature granulocytes/100 WB C Auto (Bld)Ordered By: Kendy Modi on 11-19-2024 Immature granulocytes/100 WBC (Bld) 0.400 % 0.0-0.9 [facility] Comment on above: IG% - Immature Granu locytes (promyelocytes, myelocytes and metamyelocytes) > 1% indicates that a LEFT SHIFT is Present. Automated immature granulocyte percentage 0.400 % 0.0-0.9 [facility] Laboratory - Chemistry and C hemistry - challengeOrdered By: Kendy Modi on 11-19-2024 AST [Catalytic activity/Vol] 32 U/L <38 [facility] Lymphocytes Auto (Unsp spec) [#/Vol]Ordered By: Kendy Modi on 11-19-2024 Absolute lymphocyte count 1.06 X10^3/uL 0.83-4.51 [facility] Lymphocytes/100 WBC Auto (Un sp spec)Ordered By: Kendy Modi on 11-19-2024 Automated lymphocyte count as percentage of total leukocytes 11.8 % Low 19-41 [facility] MCV (RBC) [Entitic vol]Order ed By: Kendy Modi on 11-19-2024 MCV (mean corpuscular volume) determination 85.2 fL 80-94 [facility] MCV (mean corpuscular volume ) determinationOrdered By: Kendy Modi on 11-19-2024 MCV (RBC) [Entitic vol] 85.2 fL 80-94 [facility] Mean corpuscular hemoglobin (MCH) determinationOrdered By: Kendy Modi on 11-19-2024 MCH (RBC) [Entitic mass] 28.8 pg 27.0-32.0 [facility] Mean corpuscular hemoglobin (MCH) determination 28.8 pg 27.0-32.0 [facility] Mean corpuscular hemoglobin concentration (MCHC) determinationOrdered By: Kendy Modi on 11-19-2024 MCHC (RBC) [Mass/Vol] 33.7 g/dL 32-36 [facility] Mean corpuscular hemoglobin concentration (MCHC) determination 33.7 g/dL -36 [facility] Mean platelet volume determi nationOrdered By: Kendy Modi on 11-19-2024 Platelet mean volume (Bld) [Entitic vol] 10.4 fL 6.2-12.0 [facility] Mean platelet volume determination 10.4 fl 6.2-12.0 [facility] Monocyte percentageOrdered B y: Kendy Modi on 11-19-2024 Monocytes/100 WBC (Bld) 7.8 % 0-10 [facility] Monocyte percentage 7.8 % 0-10 [facility] Neutrophil percentageOrdered By: Kendy Modi on 11-19-2024 Neutrophils/100 WBC (Bld) 79.3 % High 47-70 [facility] Neutrophil percentage 79.3 % High 47-70 [facility] No Panel InformationOrdered By: Kendy Modi on 11-19-2024 32 U/L <38 [facility] Nucleated red blood cell per centageOrdered By: Kendy Modi on 11-19-2024 Nucleated RBC/100 WBC (Bld) [Ratio] 0 % 0-5 [facility] Nucleated red blood cell percentage 0 % 0-5 [facility] Platelet countOrdered By: Keerthi Modi on 11-19-2024 Platelets (Bld) [#/Vol] 287 10*3/uL 150-450 [facility] Platelet count 287 K/mm3 150-450 [facility] Potassium (Unsp spec) [Mass/ Vol]Ordered By: Kendy Modi on 11-19-2024 Potassium measurement (mass/volume) 4.3 mmol/L 3.3-5.1 [facility] Potassium measurement (mass/ volume)Ordered By: Kendy Modi on 11-19-2024 Potassium (Unsp spec) [Mass/Vol] 4.3 mmol/L 3.3-5.1 [facility] RBC Auto (Bld) [#/Vol]Ordere d By: Kendy Modi on 11-19-2024 RBC (Bld) [#/Vol] 4.80 10*6/uL 4.6-6.2 [facility] Automated blood erythrocyte count 4.80 M/mm3 4.6-6.2 [facility] Serum creatinine measurement (mass/volume)Ordered By: Kendy Modi on 11-19-2024 Creatinine [Mass/Vol] 3.52 mg/dL High 0.70-1.20 [facility] Serum globulin measurementOr dered By: Kendy Modi on 11-19-2024 Globulin (S) [Mass/Vol] 4.1 g/dL 2.2-4.2 [facility] Serum globulin measurement 4.1 g/dL 2.2-4.2 [facility] Serum glucose measurement (m ass/volume)Ordered By: Kendy Modi on 11-19-2024 Glucose [Mass/Vol] 125 mg/dL High 70-99 [facility] Serum or plasma alanine asif otransferase (ALT) measurementOrdered By: Kendy Modi on 11-19-2024 ALT [Catalytic activity/Vol] 33 U/L <47 [facility] Serum or plasma albumin isael urement (mass/volume)Ordered By: Kendy Modi on 11-19-2024 Albumin [Mass/Vol] 4.7 g/dL 3.4-4.8 [facility] Serum or plasma albumin/glob ulin mass ratioOrdered By: Kendy Modi on 11-19-2024 Albumin/Globulin [Mass ratio] 1.1 {ratio} 0.9-2.4 [facility] Serum or plasma alkaline leo sphatase measurementOrdered By: Kendy Modi on 11-19-2024 ALP [Catalytic activity/Vol] 131 U/L High 40-129 [facility] Serum or plasma calcium isael urement (mass/volume)Ordered By: Kendy Modi on 11-19-2024 Calcium [Mass/Vol] 9.8 mg/dL 7.6-11.0 [facility] Serum or plasma urea nitroge n measurement (mass/volume)Ordered By: Kendy Modi on 11-19-2024 Urea nitrogen [Mass/Vol] 109 mg/dL High 11-23 [facility] Comment on above: Critical Result(s) C alled at: by: Results read back by same.CRITICAL CALLED TO DR ALDNAA AT 2102 BY [facility] RESULTS READ BACK BY SAME.Critical Result(s) Called at: by: Results read back by same. Sodium levelOrdered By: Kendy Modi on 11-19-2024 Sodium [Moles/Vol] 132 mmol/L Low 133-145 [facility] Sodium level 132 mmol/L Low 133-145 [facility] Total proteinOrdered By: Kendy Modi on 11-19-2024 Protein [Mass/Vol] 8.8 g/dL High 5.9-8.4 [facility] Total protein 8.8 g/dL High 5.9-8.4 [facility] Urea nitrogen [Mass/Vol]Orde red By: Kendy Modi on 11-19-2024 Serum or plasma urea nitrogen measurement (mass/volume) 109 mg/dL High 11-23 [facility] Urine cultureOrdered By: Kendy Modi on 11-19-2024 Bacteria identified Cx Nom (U) Klebsiella pneumoniae sp pneum Abnormal [facility] Urine culture Klebsiella pneumonia e sp pneum Abnormal [facility] White blood cell (WBC) count Ordered By: Kendy Modi on 11-19-2024 WBC (Bld) [#/Vol] 9.0 10*3/uL 4.4-11.0 [facility] White blood cell (WBC) count 9.0 K/mm3 4.4-11.0 [facility] Zoltan 11-13-2024 GILLIAN Telephone (HEMAWS) ISAIAS VEGA ([id number]) 1955 M Date Time Provider Department 11/13/24 EVERARDO YUSUF During your visit today, we recorded the following information about you: Kimberlyn Calabrese 11/13/2024 3:31 PM Signed Patient requesting refill of gabapentin 300mg. 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 Patient is completely out of medication. Jazmine Pang LPN 11/13/2024 3:56 PM Signed Patient is aware to contact PCP for a refill of gabapentin. Patient has not been seen here since 06/2023. Jazmine Pang LPN Allergies As of Date: 11/13/2024 (No Known Allergies) Date Reviewed: 09/09/2024 Reviewed by: Kenzie Drew, BALTAZAR.CLOUD DEVELOPER, DNP - Fully Assessed Reason for Visit: Refill Request [94] Prescriptions as of 11/13/2024 - diphenoxylate-atropine (LOMOTIL) 2.5-0.025 mg per tablet Take 1 tablet by mouth four times a day as needed for diarrhea (high ostomy output) for up to 30 days. - tamsulosin (FLOMAX) 0.4 mg Take 0.8 mg by mouth once daily. - clopidogrel (PLAVIX) 75 mg tablet Take 1 tablet by mouth once daily. - acetaminophen (TYLENOL) 325 mg tablet Take 2 tablets by mouth every 6 hours. - amLODIPine (NORVASC) 10 mg tablet Take 1 tablet by mouth once daily. - aspirin 81 mg chewable tablet Take 1 tablet by mouth once daily. - carvedilol (COREG) 12.5 mg tablet Take 1 tablet by mouth two times a day. - dextrose (TRUEPLUS) 15 gram/32 mL oral gel Take 32 mL by mouth as needed. - DULoxetine (CYMBALTA) 60 mg capsule Take 1 capsule by mouth daily at bedtime. - insulin glargine 100 unit/mL (3 mL) Inject 30 Units subcutaneously every morning. - insulin lispro 100 unit/mL injection Inject 3 Units subcutaneously with meals. - ipratropium-albuterol (DUONEB) 0.5 mg-3 mg(2.5 mg base)/3 mL nebu Inhale 3 mL as instructed every 6 hours as needed for wheezing/shortness of breath. - labetalol (NORMODYNE) 5 mg/mL injection Inject 1 mL intravenously every 4 hours as needed (SBP > 160 only if HR < 90). - lidocaine (SALONPAS) 4 % patch Apply 1 Patch as directed once daily. - melatonin 3 mg tablet Take 2 tablets by mouth one time only for 1 dose. - OLANZapine orally disintegrating (ZYPREXA ZYDIS) 5 mg disintegrating tablet Take 0.5 tablets by mouth every 8 hours as needed. - ondansetron, PF, (ZOFRAN) 4 mg/2 mL soln Inject 4 mg intravenously every 6 hours as needed. - pantoprazole DR (PROTONIX) 40 mg tablet Take 1 tablet by mouth daily at 6 am. - piperacillin-tazobacta m (ZOSYN) 3.375 gram/50 mL in dextrose (iso-osmotic) Inject 50 mL intravenously every 6 hours. Patient should start on January 01, 2024. - rosuvastatin (CRESTOR) 40 mg tablet Take 1 tablet by mouth daily at bedtime. - zinc oxide-cod liver oil (DESITIN 40%) 40 % paste Apply 1 application to affected area as needed. Problem List As Of Date 11/13/2024 Noted Resolved Diabetes mellitus type 2, uncontrolled (HCC) [I*01/22/2013 HTN (hypertension) [I10] 01/22/2013 Hyperlipidemia [E78.5] 01/22/2013 Occlusion and stenosis of unspecified carotid a*05/11/2015 PAD (peripheral artery disease) (HCC) [I73.9] 05/11/2015 Right lumbar radiculopathy [M54.16] 10/06/2015 Low back pain with right-sided sciatica [M54.41]10/06/2015 Pain in right hip [M25.551] 10/06/2015 Rectal cancer (HCC) [C20] 07/23/2019 CAD (coronary artery disease) [I25.10] 05/26/2020 Stenosis of right carotid artery [I65.21] 05/26/2020 History of CVA in adulthood [Z86.73] 05/26/2020 Neuropathy [G62.9] 05/26/2020 GERD (gastroesophageal reflux disease) [K21.9] 05/26/2020 Anxiety and depression [F41.9, F32.A] 05/26/2020 Chronic renal insufficiency [N18.9] 05/26/2020 ALEJANDRO on CPAP [G47.33] 05/26/2020 Acute postoperative pain [G89.18] 05/26/[address] (HCC) [Z93.3] 05/26/2020 prison (current) use of 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/anti*1 Small bowel obstruction (HCC) [K56.609] 12/02/2023 12/04/2023 Severe protein-calorie malnutrition (HCC) [E43] 12/04/2023 Type 2 diabetes mellitus with hyperglycemia, wi*12/06/2023 S/P small bowel resection [Z90.49] 12/08/2023 Feeding difficulties [R63.30] 12/08/2023 On total parenteral nutrition (TPN) [Z78.9] 12/08/2023 Therapeutic drug monitoring [Z51.81] 12/08/2023 Severe protein-calorie malnutrition (Kim: les*12/08/2023 Insulin dose changed (HCC) [Z79.4] 12/09/2023 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 Normal [facility] Cardiology Visit Reporton Cardiology Visit Report Normal [facility] Basic Metabolic Profile (BMP )on 10-22-2024 BUN Normal -19 [facility] Comment on above: Result Comment: Canc elled via OM: Order cancelled - Patient discharged Performed By: #### L 100.0100, L500.2500 ####[facility] [address] [facility] [address] BUN/CRE Normal 10-20 [facility] Comment on above: Result Comment: Canc elled via OM: Order cancelled - Patient discharged Performed By: #### L 100.0100, L500.2500 ####[facility] [address] [facility] [address] Calcium Normal 7.6-11.0 [facility] Comment on above: Result Comment: Canc elled via OM: Order cancelled - Patient discharged Performed By: #### L 100.0100, L500.2500 ####[facility] [address] [place], [address] CL Normal 98-108 [facility] Comment on above: Result Comment: Canc elled via OM: Order cancelled - Patient discharged Performed By: #### L 100.0100, L500.2500 ####[facility] [address] [facility] [address] CO2 Normal 21.0-32.0 [facility] Comment on above: Result Comment: Canc elled via OM: Order cancelled - Patient discharged Performed By: #### L 100.0100, L500.2500 ####[facility] [address] [place], [address] CREAT,SERUM Normal 0.70-1.20 [facility] Comment on above: Result Comment: Canc elled via OM: Order cancelled - Patient discharged Performed By: #### L 100.0100, L500.2500 ####[facility] [address] [place], [address] eGFR Normal >60 [facility] Comment on above: Result Comment: Canc elled via OM: Order cancelled - Patient discharged Performed By: #### L 100.0100, L500.2500 ####[facility] [address] [place], [address] GAP Normal 5-15 [facility] Comment on above: Result Comment: Canc elled via OM: Order cancelled - Patient discharged Performed By: #### L 100.0100, L500.2500 ####[facility] [address] [place], [address] GLU Normal 70-99 [facility] Comment on above: Result Comment: Canc elled via OM: Order cancelled - Patient discharged Performed By: #### L 100.0100, L500.2500 ####[facility] [address] [place], [address] Potassium Normal 3.3-5.1 [facility] Comment on above: Result Comment: Canc elled via OM: Order cancelled - Patient discharged Performed By: #### L 100.0100, L500.2500 ####[facility] [address] [place], [address] Basic Metabolic Profile (BMP) Normal 133-145 [facility] Comment on above: Result Comment: Canc elled via OM: Order cancelled - Patient discharged Performed By: #### L 100.0100, L500.2500 ####[facility] [address] [place], [address] CBC W/Diff, Automatedon - Absolute Neut Normal 2.0-7.7 [facility] Comment on above: Result Comment: Canc elled via OM: Order cancelled - Patient discharged Performed By: #### L 100.0100, L500.2500 ####[facility] [address] [place], [address] HCT Normal 40-54 [facility] Comment on above: Result Comment: Canc elled via OM: Order cancelled - Patient discharged Performed By: #### L 100.0100, L500.2500 ####[facility] [address] [place], [address] HGB Normal 13.0-16.5 [facility] Comment on above: Result Comment: Canc elled via OM: Order cancelled - Patient discharged Performed By: #### L 100.0100, L500.2500 ####[facility] [address] [place], [address] MCH Normal 27.0-32.0 [facility] Comment on above: Result Comment: Canc elled via OM: Order cancelled - Patient discharged Performed By: #### L 100.0100, L500.2500 ####[facility] [address] [place], [address] MCHC Normal 32-36 [facility] Comment on above: Result Comment: Canc elled via OM: Order cancelled - Patient discharged Performed By: #### L 100.0100, L500.2500 ####[facility] [address] [place], [address] MCV Normal 80-94 [facility] Comment on above: Result Comment: Canc elled via OM: Order cancelled - Patient discharged Performed By: #### L 100.0100, L500.2500 ####[facility] [address] [place], [address] NEUT% Normal 47-70 [facility] Comment on above: Result Comment: Canc elled via OM: Order cancelled - Patient discharged Performed By: #### L 100.0100, L500.2500 ####[facility] [address] [place], [address] PLT Normal 150-450 [facility] Comment on above: Result Comment: Canc elled via OM: Order cancelled - Patient discharged Performed By: #### L 100.0100, L500.2500 ####[facility] [address] [place], [address] RBC Normal 4.6-6.2 [facility] Comment on above: Result Comment: Canc elled via OM: Order cancelled - Patient discharged Performed By: #### L 100.0100, L500.2500 ####[facility] [address] [place], [address] RDW CV Normal 11.6-14.6 [facility] Comment on above: Result Comment: Canc elled via OM: Order cancelled - Patient discharged Performed By: #### L 100.0100, L500.2500 ####[facility] [address] [place], [address] RDW SD Normal 35.1-43.9 [facility] [place] Comment on above: Result Comment: Canc elled via OM: Order cancelled - Patient discharged Performed By: #### L 100.0100, L500.2500 ####[facility] [address] [place], [address] WBC Normal 4.4-11.0 [facility] Comment on above: Result Comment: Canc elled via OM: Order cancelled - Patient discharged Performed By: #### L 100.0100, L500.2500 ####[facility] [address] [place], [address] Anion gap [Moles/Vol]Ordered By: Kendy Modi on 10-21-2024 Anion gap in Serum or Plasma 20 High 5-15 [facility] BUN/creatinine ratioOrdered By: Kendy Modi on 10-21-2024 BUN/creatinine ratio 13.7 RATIO 10-20 [facility] Basic Metabolic Profile (BMP )on 10-21-2024 BUN/CRE 13.7 RATIO Normal 10-20 [facility] Comment on above: Performed By: #### L 500.2500 ####[facility] [address] [place], [address] Calcium [Mass/Vol] 9.2 mg/dL Normal 7.6-11.0 [facility] Comment on above: Performed By: #### L 500.2500 ####[facility] [address] [place], [address] Chloride [Moles/Vol] 94 mmol/L Low 98-108 [facility] Comment on above: Performed By: #### L 500.2500 ####[facility] [address] [place], [address] CO2 [Moles/Vol] 25.1 mmol/L Normal 21.0-32.0 [facility] Comment on above: Performed By: #### L 500.2500 ####[facility] [address] [place], [address] Creatinine [Mass/Vol] 1.23 mg/dL High 0.70-1.20 [facility] Comment on above: Performed By: #### L 500.2500 ####[facility] [address] [place], [address] GAP 20 High 5-15 [facility] Comment on above: Performed By: #### L 500.2500 ####[facility] [address] [place], [address] GFR/1.73 sq M.predicted among non-blacks MDRD (S/P/Bld) [Vol rate/Area] 65 mL/min/{1.73_m2} Normal >60 [facility] Comment on above: Result Comment: mL/m in/1.73m2 CKD-EPI Creatinine Equation (2020) Performed By: #### L 500.2500 ####[facility] [address] [place], [address] Glucose [Mass/Vol] 121 mg/dL High 70-99 [facility] Comment on above: Performed By: #### L 500.2500 ####[facility] [address] [place], [address] Potassium [Moles/Vol] 3.5 mmol/L Normal 3.3-5.1 [facility] Comment on above: Performed By: #### L 500.2500 ####[facility] [address] [place], [address] Sodium [Moles/Vol] 139 mmol/L Normal 133-145 [facility] Comment on above: Performed By: #### L 500.2500 ####[facility] [address] [place], [address] Urea nitrogen [Mass/Vol] 17 mg/dL Normal 4-19 [facility] Comment on above: Performed By: #### L 500.2500 ####[facility] [address] [place], [address] BUN Normal -19 [facility] Comment on above: Result Comment: Canc elled via OM: Order cancelled - Patient discharged Performed By: #### L 500.2500, L100.0100 ####[facility] [address] [place], [address] BUN/CRE Normal -20 [facility] Comment on above: Result Comment: Canc elled via OM: Order cancelled - Patient discharged Performed By: #### L 500.2500, L100.0100 ####[facility] [address] [place], [address] Calcium Normal 7.6-11.0 [facility] Comment on above: Result Comment: Canc elled via OM: Order cancelled - Patient discharged Performed By: #### L 500.2500, L100.0100 ####[facility] [address] [place], [address] CL Normal 98-108 [facility] Comment on above: Result Comment: Canc elled via OM: Order cancelled - Patient discharged Performed By: #### L 500.2500, L100.0100 ####[facility] [address] [place], [address] CO2 Normal 21.0-32.0 [facility] Comment on above: Result Comment: Canc elled via OM: Order cancelled - Patient discharged Performed By: #### L 500.2500, L100.0100 ####[facility] [address] [place], [address] CREAT,SERUM Normal 0.70-1.20 [facility] Comment on above: Result Comment: Canc elled via OM: Order cancelled - Patient discharged Performed By: #### L 500.2500, L100.0100 ####[facility] [address] [place], [address] eGFR Normal >60 [facility] Comment on above: Result Comment: Canc elled via OM: Order cancelled - Patient discharged Performed By: #### L 500.2500, L100.0100 ####[facility] [address] [place], [address] GAP Normal 5-15 [facility] Comment on above: Result Comment: Canc elled via OM: Order cancelled - Patient discharged Performed By: #### L 500.2500, L100.0100 ####[facility] [address] [place], [address] GLU Normal 70-99 [facility] Comment on above: Result Comment: Canc elled via OM: Order cancelled - Patient discharged Performed By: #### L 500.2500, L100.0100 ####[facility] [address] [place], [address] Potassium Normal 3.3-5.1 [facility] Comment on above: Result Comment: Canc elled via OM: Order cancelled - Patient discharged Performed By: #### L 500.2500, L100.0100 ####[facility] [address] [place], [address] Basic Metabolic Profile (BMP) Normal 133-145 [facility] Comment on above: Result Comment: Canc elled via OM: Order cancelled - Patient discharged Performed By: #### L 500.2500, L100.0100 ####[facility] [address] [place], [address] CBC W/Diff, Automatedon 10-05 Absolute Neut Normal 2.0-7.7 [facility] Comment on above: Result Comment: Canc elled via OM: Order cancelled - Patient discharged Performed By: #### L 500.2500, L100.0100 ####[facility] [address] [place], [address] HCT Normal 40-54 [facility] Comment on above: Result Comment: Canc elled via OM: Order cancelled - Patient discharged Performed By: #### L 500.2500, L100.0100 ####[facility] [address] [place], [address] HGB Normal 13.0-16.5 [facility] Comment on above: Result Comment: Canc elled via OM: Order cancelled - Patient discharged Performed By: #### L 500.2500, L100.0100 ####[facility] [address] [place], [address] MCH Normal 27.0-32.0 [facility] Comment on above: Result Comment: Canc elled via OM: Order cancelled - Patient discharged Performed By: #### L 500.2500, L100.0100 ####[facility] [address] [place], [address] MCHC Normal 32-36 [facility] Comment on above: Result Comment: Canc elled via OM: Order cancelled - Patient discharged Performed By: #### L 500.2500, L100.0100 ####[facility] [address] [place], [address] MCV Normal 80-94 [facility] Comment on above: Result Comment: Canc elled via OM: Order cancelled - Patient discharged Performed By: #### L 500.2500, L100.0100 ####[facility] [address] [place], [address] NEUT% Normal 47-70 [facility] Comment on above: Result Comment: Canc elled via OM: Order cancelled - Patient discharged Performed By: #### L 500.2500, L100.0100 ####[facility] [address] [place], [address] PLT Normal 150-450 [facility] Comment on above: Result Comment: Canc elled via OM: Order cancelled - Patient discharged Performed By: #### L 500.2500, L100.0100 ####[facility] [address] [place], [address] RBC Normal 4.6-6.2 [facility] Comment on above: Result Comment: Canc elled via OM: Order cancelled - Patient discharged Performed By: #### L 500.2500, L100.0100 ####[facility] [address] [place], [address] RDW CV Normal 11.6-14.6 [facility] Comment on above: Result Comment: Canc elled via OM: Order cancelled - Patient discharged Performed By: #### L 500.2500, L100.0100 ####[facility] [address] [place], [address] RDW SD Normal 35.1-43.9 [facility] Comment on above: Result Comment: Canc elled via OM: Order cancelled - Patient discharged Performed By: #### L 500.2500, L100.0100 ####[facility] [address] [place], [address] WBC Normal 4.4-11.0 [facility] Comment on above: Result Comment: Canc elled via OM: Order cancelled - Patient discharged Performed By: #### L 500.2500, L100.0100 ####[facility] [address] [place], [address] Calcium [Mass/Vol]Ordered By : Kendy Modi on 10-21-2024 Serum or plasma calcium measurement (mass/volume) 9.2 mg/dL 7.6-11.0 [facility] Carbon dioxide, total [Moles /volume] in Central venous bloodOrdered By: Kendy Modi on 10-21-2024 Carbon dioxide, total [Moles/volume] in Central venous blood 25.1 mmol/L 21.0-32.0 [facility] Chloride assayOrdered By: Keerthi Modi on 10-21-2024 Chloride assay 94 mmol/L Low 98-108 [facility] Creatinine [Mass/Vol]Ordered By: Kendy Modi on 10-21-2024 Serum creatinine measurement (mass/volume) 1.23 mg/dL High 0.70-1.20 [facility] GFR/1.73 sq M.predicted ivette g non-blacks MDRD (S/P/Bld) [Vol rate/Area]Ordered By: Kendy Modi on 10-21-2024 Glomerular filtration rate (GFR) estimation/1.73 sq m using serum, plasma, or whole b 65 >60 [facility] Glucose [Mass/Vol]Ordered By : Kendy Modi on 10-21-2024 Serum glucose measurement (mass/volume) 121 mg/dL High 70-99 [facility] Potassium (Unsp spec) [Mass/ Vol]Ordered By: Kendy Modi on 10-21-2024 Potassium measurement (mass/volume) 3.5 mmol/L 3.3-5.1 [facility] Sodium levelOrdered By: Kendy Modi on 10-21-2024 Sodium level 139 mmol/L 133-145 [facility] Urea nitrogen [Mass/Vol]Orde red By: Kendy Modi on 10-21-2024 Serum or plasma urea nitrogen measurement (mass/volume) 17 mg/dL - [facility] Basic Metabolic Profile (BMP )on 10-20-2024 BUN Normal - [facility] Comment on above: Result Comment: Canc elled via OM: Order cancelled - Patient discharged Performed By: #### L 500.2500, L100.0100 ####[facility] [address] [place], [address] BUN/CRE Normal 10-20 [facility] Comment on above: Result Comment: Canc elled via OM: Order cancelled - Patient discharged Performed By: #### L 500.2500, L100.0100 ####[facility] [address] [place], [address] Calcium Normal 7.6-11.0 [facility] Comment on above: Result Comment: Canc elled via OM: Order cancelled - Patient discharged Performed By: #### L 500.2500, L100.0100 ####[facility] [address] [place], [address] CL Normal 98-108 [facility] Comment on above: Result Comment: Canc elled via OM: Order cancelled - Patient discharged Performed By: #### L 500.2500, L100.0100 ####[facility] [address] [place], [address] CO2 Normal 21.0-32.0 [facility] Comment on above: Result Comment: Canc elled via OM: Order cancelled - Patient discharged Performed By: #### L 500.2500, L100.0100 ####[facility] [address] [place], [address] CREAT,SERUM Normal 0.70-1.20 [facility] Comment on above: Result Comment: Canc elled via OM: Order cancelled - Patient discharged Performed By: #### L 500.2500, L100.0100 ####[facility] [address] [place], [address] eGFR Normal >60 [facility] Comment on above: Result Comment: Canc elled via OM: Order cancelled - Patient discharged Performed By: #### L 500.2500, L100.0100 ####[facility] [address] [place], [address] GAP Normal 5-15 [facility] Comment on above: Result Comment: Canc elled via OM: Order cancelled - Patient discharged Performed By: #### L 500.2500, L100.0100 ####[facility] [address] [place], [address] GLU Normal 70-99 [facility] Comment on above: Result Comment: Canc elled via OM: Order cancelled - Patient discharged Performed By: #### L 500.2500, L100.0100 ####[facility] [address] [place], [address] Potassium Normal 3.3-5.1 [facility] Comment on above: Result Comment: Canc elled via OM: Order cancelled - Patient discharged Performed By: #### L 500.2500, L100.0100 ####[facility] [address] [place], [address] Basic Metabolic Profile (BMP) Normal 133-145 [facility] Comment on above: Result Comment: Canc elled via OM: Order cancelled - Patient discharged Performed By: #### L 500.2500, L100.0100 ####[facility] [address] [place], [address] CBC W/Diff, Automatedon 03-1 Absolute Neut Normal 2.0-7.7 [facility] Comment on above: Result Comment: Canc elled via OM: Order cancelled - Patient discharged Performed By: #### L 500.2500, L100.0100 ####[facility] [address] [place], [address] HCT Normal 40-54 [facility] Comment on above: Result Comment: Canc elled via OM: Order cancelled - Patient discharged Performed By: #### L 500.2500, L100.0100 ####[facility] [address] [place], [address] HGB Normal 13.0-16.5 [facility] Comment on above: Result Comment: Canc elled via OM: Order cancelled - Patient discharged Performed By: #### L 500.2500, L100.0100 ####[facility] [address] [place], [address] MCH Normal 27.0-32.0 [facility] Comment on above: Result Comment: Canc elled via OM: Order cancelled - Patient discharged Performed By: #### L 500.2500, L100.0100 ####[facility] [address] [place], [address] MCHC Normal 32-36 [facility] Comment on above: Result Comment: Canc elled via OM: Order cancelled - Patient discharged Performed By: #### L 500.2500, L100.0100 ####[facility] [address] [place], [address] MCV Normal 80-94 [facility] Comment on above: Result Comment: Canc elled via OM: Order cancelled - Patient discharged Performed By: #### L 500.2500, L100.0100 ####[facility] [address] [place], [address] NEUT% Normal 47-70 [facility] Comment on above: Result Comment: Canc elled via OM: Order cancelled - Patient discharged Performed By: #### L 500.2500, L100.0100 ####[facility] [address] [place], [address] PLT Normal 150-450 [facility] Comment on above: Result Comment: Canc elled via OM: Order cancelled - Patient discharged Performed By: #### L 500.2500, L100.0100 ####[facility] [address] [place], [address] RBC Normal 4.6-6.2 [facility] Comment on above: Result Comment: Canc elled via OM: Order cancelled - Patient discharged Performed By: #### L 500.2500, L100.0100 ####[facility] [address] [place], [address] RDW CV Normal 11.6-14.6 [facility] Comment on above: Result Comment: Canc elled via OM: Order cancelled - Patient discharged Performed By: #### L 500.2500, L100.0100 ####[facility] [address] [place], [address] RDW SD Normal 35.1-43.9 [facility] Comment on above: Result Comment: Canc elled via OM: Order cancelled - Patient discharged Performed By: #### L 500.2500, L100.0100 ####[facility] [address] [place], [address] WBC Normal 4.4-11.0 [facility] Comment on above: Result Comment: Canc elled via OM: Order cancelled - Patient discharged Performed By: #### L 500.2500, L100.0100 ####[facility] [address] [place], [address] Basic Metabolic Profile (BMP )on 10-19-2024 BUN Normal 4-19 [facility] Comment on above: Result Comment: Canc elled via OM: Order cancelled - Patient discharged Performed By: #### L 500.2500, L100.0100 ####[facility] [address] [place], [address] BUN/CRE Normal 10-20 [facility] Comment on above: Result Comment: Canc elled via OM: Order cancelled - Patient discharged Performed By: #### L 500.2500, L100.0100 ####[facility] [address] [place], [address] Calcium Normal 7.6-11.0 [facility] Comment on above: Result Comment: Canc elled via OM: Order cancelled - Patient discharged Performed By: #### L 500.2500, L100.0100 ####[facility] [address] [place], [address] CL Normal 98-108 [facility] Comment on above: Result Comment: Canc elled via OM: Order cancelled - Patient discharged Performed By: #### L 500.2500, L100.0100 ####[facility] [address] [place], [address] CO2 Normal 21.0-32.0 [facility] Comment on above: Result Comment: Canc elled via OM: Order cancelled - Patient discharged Performed By: #### L 500.2500, L100.0100 ####[facility] [address] [place], [address] CREAT,SERUM Normal 0.70-1.20 [facility] Comment on above: Result Comment: Canc elled via OM: Order cancelled - Patient discharged Performed By: #### L 500.2500, L100.0100 ####[facility] [address] [place], [address] eGFR Normal >60 [facility] Comment on above: Result Comment: Canc elled via OM: Order cancelled - Patient discharged Performed By: #### L 500.2500, L100.0100 ####[facility] [address] [place], [address] GAP Normal 5-15 [facility] Comment on above: Result Comment: Canc elled via OM: Order cancelled - Patient discharged Performed By: #### L 500.2500, L100.0100 ####[facility] [address] [place], [address] GLU Normal 70-99 [facility] Comment on above: Result Comment: Canc elled via OM: Order cancelled - Patient discharged Performed By: #### L 500.2500, L100.0100 ####[facility] [address] [place], [address] Potassium Normal 3.3-5.1 [facility] Comment on above: Result Comment: Canc elled via OM: Order cancelled - Patient discharged Performed By: #### L 500.2500, L100.0100 ####[facility] [address] [place], [address] Basic Metabolic Profile (BMP) Normal 133-145 [facility] Comment on above: Result Comment: Canc elled via OM: Order cancelled - Patient discharged Performed By: #### L 500.2500, L100.0100 ####[facility] [address] [place], [address] CBC W/Diff, Automatedon 03- Absolute Neut Normal 2.0-7.7 [facility] Comment on above: Result Comment: Canc elled via OM: Order cancelled - Patient discharged Performed By: #### L 500.2500, L100.0100 ####[facility] [address] [place], [address] HCT Normal 40-54 [facility] Comment on above: Result Comment: Canc elled via OM: Order cancelled - Patient discharged Performed By: #### L 500.2500, L100.0100 ####[facility] [address] [place], [address] HGB Normal 13.0-16.5 [facility] Comment on above: Result Comment: Canc elled via OM: Order cancelled - Patient discharged Performed By: #### L 500.2500, L100.0100 ####[facility] [address] [place], [address] MCH Normal 27.0-32.0 [facility] Comment on above: Result Comment: Canc elled via OM: Order cancelled - Patient discharged Performed By: #### L 500.2500, L100.0100 ####[facility] [address] [place], [address] MCHC Normal 32-36 [facility] Comment on above: Result Comment: Canc elled via OM: Order cancelled - Patient discharged Performed By: #### L 500.2500, L100.0100 ####[facility] [address] [place], [address] MCV Normal 80-94 [facility] Comment on above: Result Comment: Canc elled via OM: Order cancelled - Patient discharged Performed By: #### L 500.2500, L100.0100 ####[facility] [address] [place], [address] NEUT% Normal 47-70 [facility] Comment on above: Result Comment: Canc elled via OM: Order cancelled - Patient discharged Performed By: #### L 500.2500, L100.0100 ####[facility] [address] [place], [address] PLT Normal 150-450 [facility] Comment on above: Result Comment: Canc elled via OM: Order cancelled - Patient discharged Performed By: #### L 500.2500, L100.0100 ####[facility] [address] [place], [address] RBC Normal 4.6-6.2 [facility] Comment on above: Result Comment: Canc elled via OM: Order cancelled - Patient discharged Performed By: #### L 500.2500, L100.0100 ####[facility] [address] [place], [address] RDW CV Normal 11.6-14.6 [facility] Comment on above: Result Comment: Canc elled via OM: Order cancelled - Patient discharged Performed By: #### L 500.2500, L100.0100 ####[facility] [address] [place], [address] RDW SD Normal 35.1-43.9 [facility] Comment on above: Result Comment: Canc elled via OM: Order cancelled - Patient discharged Performed By: #### L 500.2500, L100.0100 ####[facility] [address] [place], [address] WBC Normal 4.4-11.0 [facility] Comment on above: Result Comment: Canc elled via OM: Order cancelled - Patient discharged Performed By: #### L 500.2500, L100.0100 ####[facility] [address] [place], [address] Absolute neutrophil countOrd ered By: Nicole Smith on 10-18-2024 Absolute neutrophil count 5.8 X10^3/uL 2.0-7.7 [facility] Anion gap [Moles/Vol]Ordered By: Nicole Smith on 10-18-2024 Anion gap in Serum or Plasma 13 5-15 [facility] BUN/creatinine ratioOrdered By: Nicole Smith on 10-18-2024 BUN/creatinine ratio 17.1 RATIO 10-20 [facility] Basic Metabolic Profile (BMP )on 10-18-2024 BUN/CRE 17.1 RATIO Normal -20 [facility] Comment on above: Performed By: #### L 500.2500, L100.0100 ####[facility] [address] [place], [address] Calcium [Mass/Vol] 9.1 mg/dL Normal 7.6-11.0 [facility] Comment on above: Performed By: #### L 500.2500, L100.0100 ####[facility] [address] [place], [address] Chloride [Moles/Vol] 98 mmol/L Normal 98-108 [facility] Comment on above: Performed By: #### L 500.2500, L100.0100 ####[facility] [address] [place], [address] CO2 [Moles/Vol] 26.0 mmol/L Normal 21.0-32.0 [facility] Comment on above: Performed By: #### L 500.2500, L100.0100 ####[facility] [address] [place], [address] Creatinine [Mass/Vol] 0.81 mg/dL Normal 0.70-1.20 [facility] Comment on above: Performed By: #### L 500.2500, L100.0100 ####[facility] [address] [place], [address] ECRCL 83.87 ml/min Normal 50-250 [facility] Comment on above: Performed By: #### L 500.2500, L100.0100 ####[facility] [address] [place], [address] GAP 13 Normal 5-15 [facility] Comment on above: Performed By: #### L 500.2500, L100.0100 ####[facility] [address] [place], [address] GFR/1.73 sq M.predicted among non-blacks MDRD (S/P/Bld) [Vol rate/Area] 97 mL/min/{1.73_m2} Normal >60 [facility] Comment on above: Result Comment: mL/m in/1.73m2 CKD-EPI Creatinine Equation (2020) Performed By: #### L 500.2500, L100.0100 ####[facility] [address] [place], [address] Glucose [Mass/Vol] 153 mg/dL High 70-99 [facility] Comment on above: Performed By: #### L 500.2500, L100.0100 ####[facility] [address] [place], [address] Potassium [Moles/Vol] 4.3 mmol/L Normal 3.3-5.1 [facility] Comment on above: Performed By: #### L 500.2500, L100.0100 ####[facility] [address] [place], [address] Sodium [Moles/Vol] 136 mmol/L Normal 133-145 [facility] Comment on above: Performed By: #### L 500.2500, L100.0100 ####[facility] [address] [place], [address] Urea nitrogen [Mass/Vol] 14 mg/dL Normal 4-19 [facility] Comment on above: Performed By: #### L 500.2500, L100.0100 ####[facility] [address] [place], [address] Basophil percentageOrdered B y: Nicole Smith on 10-18-2024 Basophil percentage 0.1 % 0-1 [facility] Bedside Glucoseon 10-18-2024 FINGERSTICK GLU 193 mg/dL High 74-106 [facility] Comment on above: Result Comment: ORLY DELGADILLO OF PATIENT CARE PER NURSING PROTOCOL Performed By: #### L 501.080 ####[facility] [address] [place], [address] FINGERSTICK GLU 134 mg/dL High 74-106 [facility] Comment on above: Result Comment: ORLY DELGADILLO OF PATIENT CARE PER NURSING PROTOCOL Performed By: #### L 501.080 ####[facility] [address] [place], [address] CBC W/Diff, Automatedon 03- Absolute Lymph 0.78 X10 3/uL Low 0.83-4.51 [facility] Comment on above: Performed By: #### L 500.2500, L100.0100 ####[facility] [address] [place], [address] Absolute Neut 5.8 X10 3/uL Normal 2.0-7.7 [facility] Comment on above: Performed By: #### L 500.2500, L100.0100 ####[facility] [address] [place], [address] Basophils/100 WBC (Bld) 0.1 % Normal 0-1 [facility] Comment on above: Performed By: #### L 500.2500, L100.0100 ####[facility] [address] [place], [address] Eosinophils/100 WBC (Bld) 2.2 % Normal 0-5 [facility] Comment on above: Performed By: #### L 500.2500, L100.0100 ####[facility] [address] [place], [address] Erythrocyte distribution width (RBC) [Ratio] 14.6 % Normal 11.6-14.6 [facility] Comment on above: Performed By: #### L 500.2500, L100.0100 ####[facility] [address] [place], [address] Hematocrit (Bld) [Volume fraction] 30.5 % Low 40-54 [facility] Comment on above: Performed By: #### L 500.2500, L100.0100 ####[facility] [address] [place], [address] Hemoglobin (Bld) [Mass/Vol] 9.9 g/dL Low 13.0-16.5 [facility] Comment on above: Performed By: #### L 500.2500, L100.0100 ####[facility] [address] [place], [address] IG% 0.400 Normal 0.0-0.9 [facility] Comment on above: Result Comment: IG% - Immature Granulocytes (promyelocytes, myelocytes andmetamyelocytes) > 1% indicates that a LEFT SHIFT is Present. Performed By: #### L 500.2500, L100.0100 ####[facility] [address] [place], [address] Lymphocytes/100 WBC (Bld) 10.3 % Low 19-41 [facility] Comment on above: Performed By: #### L 500.2500, L100.0100 ####[facility] [address] [place], [address] MCH (RBC) [Entitic mass] 28.5 pg Normal 27.0-32.0 [facility] Comment on above: Performed By: #### L 500.2500, L100.0100 ####[facility] [address] [place], [address] MCHC (RBC) [Mass/Vol] 32.5 g/dL Normal 32-36 [facility] Comment on above: Performed By: #### L 500.2500, L100.0100 ####[facility] [address] [place], [address] MCV (RBC) [Entitic vol] 87.9 fL Normal 80-94 [facility] Comment on above: Performed By: #### L 500.2500, L100.0100 ####[facility] [address] [place], [address] Monocytes/100 WBC (Bld) 10.9 % High 0-10 [facility] Comment on above: Performed By: #### L 500.2500, L100.0100 ####[facility] [address] [place], [address] Neutrophils/100 WBC (Bld) 76.1 % High 47-70 [facility] Comment on above: Performed By: #### L 500.2500, L100.0100 ####[facility] [address] [place], [address] Nucleated RBC (Bld) [#/Vol] 0 10*3/uL Normal 0-5 [facility] Comment on above: Performed By: #### L 500.2500, L100.0100 ####[facility] [address] [place], [address] Platelet mean volume (Bld) [Entitic vol] 9.9 fL Normal 6.2-12.0 [facility] Comment on above: Performed By: #### L 500.2500, L100.0100 ####[facility] [address] [place], [address] Platelets (Bld) [#/Vol] 293 10*3/uL Normal 150-450 [facility] Comment on above: Performed By: #### L 500.2500, L100.0100 ####[facility] [address] [place], [address] RBC (Bld) [#/Vol] 3.47 10*6/uL Low 4.6-6.2 [facility] Comment on above: Performed By: #### L 500.2500, L100.0100 ####[facility] [address] [place], [address] RDW SD 47.2 fl High 35.1-43.9 [facility] Comment on above: Performed By: #### L 500.2500, L100.0100 ####[facility] [address] [place], [address] WBC (Bld) [#/Vol] 7.6 10*3/uL Normal 4.4-11.0 [facility] Comment on above: Performed By: #### L 500.2500, L100.0100 ####[facility] [address] [place], [address] Calcium [Mass/Vol]Ordered By : Nicole Smith on 10-18-2024 Serum or plasma calcium measurement (mass/volume) 9.1 mg/dL 7.6-11.0 [facility] Carbon dioxide, total [Moles /volume] in Central venous bloodOrdered By: Nicole Smith on 10-18-2024 Carbon dioxide, total [Moles/volume] in Central venous blood 26.0 mmol/L 21.0-32.0 [facility] Chloride assayOrdered By: Vivian Smith on 10-18-2024 Chloride assay 98 mmol/L 98-108 [facility] Creatinine [Mass/Vol]Ordered By: Nicole Smith on 10-18-2024 Serum creatinine measurement (mass/volume) 0.81 mg/dL 0.70-1.20 [facility] Discharge Instructionon 10-05 Discharge Instruction Normal [facility] Eosinophil percentageOrdered By: Nicole Smith on 10-18-2024 Eosinophil percentage 2.2 % 0-5 [facility] Erythrocyte distribution wid th (RBC) [Ratio]Ordered By: Nicole Smith on 10-18-2024 Erythrocyte distribution width ratio 14.6 % 11.6-14.6 [facility] Erythrocyte distribution wid th standard deviationOrdered By: Nicole Smith on 10-18-2024 Erythrocyte distribution width standard deviation 47.2 fl High 35.1-43.9 [facility] Estimation of creatinine all aranceOrdered By: Nicole Smith on 10-18-2024 Estimation of creatinine clearance 83.87 ml/min 50-250 [facility] GFR/1.73 sq M.predicted ivette g non-blacks MDRD (S/P/Bld) [Vol rate/Area]Ordered By: Nicole Smith on 10-18-2024 Glomerular filtration rate (GFR) estimation/1.73 sq m using serum, plasma, or whole b 97 >60 [facility] Glucose [Mass/Vol]Ordered By : Nicole Smith on 10-18-2024 Serum glucose measurement (mass/volume) 153 mg/dL High 70-99 [facility] Glucose measurement at bedsi deOrdered By: Nicole Smith on 10-18-2024 Glucose measurement at bedside 193 mg/dL High 74-106 [facility] Hematocrit Auto (Bld) [Volum e fraction]Ordered By: Nicole Smith on 10-18-2024 Automated blood hematocrit (percentage) 30.5 % Low 40-54 [facility] Hemoglobin measurementOrdere d By: Nicole Smith on 10-18-2024 Hemoglobin measurement 9.9 g/dL Low 13.0-16.5 [facility] Immature granulocytes/100 WB C Auto (Bld)Ordered By: Nicole Smith on 10-18-2024 Automated immature granulocyte percentage 0.400 % 0.0-0.9 [facility] Lymphocytes Auto (Unsp spec) [#/Vol]Ordered By: Nicole Smith on 10-18-2024 Absolute lymphocyte count 0.78 X10^3/uL Low 0.83-4.51 [facility] Lymphocytes/100 WBC Auto (Un sp spec)Ordered By: Nicole Smith on 10-18-2024 Automated lymphocyte count as percentage of total leukocytes 10.3 % Low 19-41 [facility] MCV (RBC) [Entitic vol]Order ed By: Nicole Smith on 10-18-2024 MCV (mean corpuscular volume) determination 87.9 fL 80-94 [facility] Mean corpuscular hemoglobin (MCH) determinationOrdered By: Nicole Smith on 10-18-2024 Mean corpuscular hemoglobin (MCH) determination 28.5 pg 27.0-32.0 [facility] Mean corpuscular hemoglobin concentration (MCHC) determinationOrdered By: Nicole Smith on 10-18-2024 Mean corpuscular hemoglobin concentration (MCHC) determination 32.5 g/dL 32-36 [facility] Mean platelet volume determi nationOrdered By: Nicole Smith on 10-18-2024 Mean platelet volume determination 9.9 fl 6.2-12.0 [facility] Monocyte percentageOrdered B y: Nicole Smith on 10-18-2024 Monocyte percentage 10.9 % High 0-10 [facility] Neutrophil percentageOrdered By: Nicole Smith on 10-18-2024 Neutrophil percentage 76.1 % High 47-70 [facility] Nucleated red blood cell per centageOrdered By: Nicole Smith on 10-18-2024 Nucleated red blood cell percentage 0 % 0-5 [facility] Platelet countOrdered By: Vivian Smith on 10-18-2024 Platelet count 293 K/mm3 150-450 [facility] Potassium (Unsp spec) [Mass/ Vol]Ordered By: Nicole Smith on 10-18-2024 Potassium measurement (mass/volume) 4.3 mmol/L 3.3-5.1 [facility] RBC Auto (Bld) [#/Vol]Ordere d By: Nicole Smith on 10-18-2024 Automated blood erythrocyte count 3.47 M/mm3 Low 4.6-6.2 [facility] Sodium levelOrdered By: Dasha Smith on 10-18-2024 Sodium level 136 mmol/L 133-145 [facility] Urea nitrogen [Mass/Vol]Orde red By: Nicole Smith on 10-18-2024 Serum or plasma urea nitrogen measurement (mass/volume) 14 mg/dL 4-19 [facility] White blood cell (WBC) count Ordered By: Nicole Smith on 10-18-2024 White blood cell (WBC) count 7.6 K/mm3 4.4-11.0 [facility] Basic Metabolic Profile (BMP )on 10-17-2024 BUN/CRE 21.6 RATIO High 10-20 [facility] Comment on above: Performed By: #### L 500.2500, L100.0100 ####[facility] [address] [place], [address] Calcium [Mass/Vol] 8.9 mg/dL Normal 7.6-11.0 [facility] Comment on above: Performed By: #### L 500.2500, L100.0100 ####[facility] [address] [place], [address] Chloride [Moles/Vol] 96 mmol/L Low 98-108 [facility] Comment on above: Performed By: #### L 500.2500, L100.0100 ####[facility] [address] [place], [address] CO2 [Moles/Vol] 27.8 mmol/L Normal 21.0-32.0 [facility] Comment on above: Performed By: #### L 500.2500, L100.0100 ####[facility] [address] [place], [address] Creatinine [Mass/Vol] 0.85 mg/dL Normal 0.70-1.20 [facility] Comment on above: Performed By: #### L 500.2500, L100.0100 ####[facility] [address] [place], [address] ECRCL 79.92 ml/min Normal 50-250 [facility] Comment on above: Performed By: #### L 500.2500, L100.0100 ####[facility] [address] [place], [address] GAP 13 Normal 5-15 [facility] Comment on above: Performed By: #### L 500.2500, L100.0100 ####[facility] [address] [place], [address] GFR/1.73 sq M.predicted among non-blacks MDRD (S/P/Bld) [Vol rate/Area] 96 mL/min/{1.73_m2} Normal >60 [facility] Comment on above: Result Comment: mL/m in/1.73m2 CKD-EPI Creatinine Equation (2020) Performed By: #### L 500.2500, L100.0100 ####[facility] [address] [place], [address] Glucose [Mass/Vol] 174 mg/dL High 70-99 [facility] Comment on above: Performed By: #### L 500.2500, L100.0100 ####[facility] [address] [place], [address] Potassium [Moles/Vol] 4.1 mmol/L Normal 3.3-5.1 [facility] Comment on above: Performed By: #### L 500.2500, L100.0100 ####[facility] [address] [place], [address] Sodium [Moles/Vol] 137 mmol/L Normal 133-145 [facility] Comment on above: Performed By: #### L 500.2500, L100.0100 ####[facility] [address] [place], [address] Urea nitrogen [Mass/Vol] 18 mg/dL Normal 4-19 [facility] Comment on above: Performed By: #### L 500.2500, L100.0100 ####[facility] [address] [place], [address] Bedside Glucoseon 10-17-2024 FINGERSTICK GLU 231 mg/dL High 74-106 [facility] Comment on above: Result Comment: ORLY GEMENT OF PATIENT CARE PER NURSING PROTOCOL Performed By: #### L 501.080 ####[facility] [address] [place], [address] FINGERSTICK GLU 158 mg/dL High 74-106 [facility] Comment on above: Result Comment: ORLY GEMENT OF PATIENT CARE PER NURSING PROTOCOL Performed By: #### L 501.080 ####[facility] [address] [place], [address] FINGERSTICK GLU 191 mg/dL High 74-106 [facility] Comment on above: Result Comment: ORLY GEMENT OF PATIENT CARE PER NURSING PROTOCOL Performed By: #### L 501.080 ####[facility] [address] [place], [address] FINGERSTICK GLU 137 mg/dL High 74-106 [facility] Comment on above: Result Comment: ORLY DELGADILLO OF PATIENT CARE PER NURSING PROTOCOL Performed By: #### L 501.080 ####[facility] [address] [place], [address] CBC W/Diff, Automatedon - Absolute Lymph 0.54 X10 3/uL Low 0.83-4.51 [facility] Comment on above: Performed By: #### L 500.2500, L100.0100 ####[facility] [address] [place], [address] Absolute Neut 5.3 X10 3/uL Normal 2.0-7.7 [facility] Comment on above: Performed By: #### L 500.2500, L100.0100 ####[facility] [address] [place], [address] Basophils/100 WBC (Bld) 0.2 % Normal 0-1 [facility] Comment on above: Performed By: #### L 500.2500, L100.0100 ####[facility] [address] [place], [address] Eosinophils/100 WBC (Bld) 2.1 % Normal 0-5 [facility] Comment on above: Performed By: #### L 500.2500, L100.0100 ####[facility] [address] [place], [address] Erythrocyte distribution width (RBC) [Ratio] 14.6 % Normal 11.6-14.6 [facility] Comment on above: Performed By: #### L 500.2500, L100.0100 ####[facility] [address] [place], [address] Hematocrit (Bld) [Volume fraction] 32.4 % Low 40-54 [facility] Comment on above: Performed By: #### L 500.2500, L100.0100 ####[facility] [address] [place], [address] Hemoglobin (Bld) [Mass/Vol] 10.5 g/dL Low 13.0-16.5 [facility] Comment on above: Performed By: #### L 500.2500, L100.0100 ####[facility] [address] [place], [address] IG% 0.600 Normal 0.0-0.9 [facility] Comment on above: Result Comment: IG% - Immature Granulocytes (promyelocytes, myelocytes andmetamyelocytes) > 1% indicates that a LEFT SHIFT is Present. Performed By: #### L 500.2500, L100.0100 ####[facility] [address] [place], [address] Lymphocytes/100 WBC (Bld) 8.1 % Low 19-41 [facility] Comment on above: Performed By: #### L 500.2500, L100.0100 ####[facility] [address] [place], [address] MCH (RBC) [Entitic mass] 28.8 pg Normal 27.0-32.0 [facility] Comment on above: Performed By: #### L 500.2500, L100.0100 ####[facility] [address] [place], [address] MCHC (RBC) [Mass/Vol] 32.4 g/dL Normal 32-36 [facility] Comment on above: Performed By: #### L 500.2500, L100.0100 ####[facility] [address] [place], [address] MCV (RBC) [Entitic vol] 88.8 fL Normal 80-94 [facility] Comment on above: Performed By: #### L 500.2500, L100.0100 ####[facility] [address] [place], [address] Monocytes/100 WBC (Bld) 9.6 % Normal 0-10 [facility] Comment on above: Performed By: #### L 500.2500, L100.0100 ####[facility] [address] [place], [address] Neutrophils/100 WBC (Bld) 79.4 % High 47-70 [facility] Comment on above: Performed By: #### L 500.2500, L100.0100 ####[facility] [address] [place], [address] Nucleated RBC (Bld) [#/Vol] 0 10*3/uL Normal 0-5 [facility] Comment on above: Performed By: #### L 500.2500, L100.0100 ####[facility] [address] [place], [address] Platelet mean volume (Bld) [Entitic vol] 10.0 fL Normal 6.2-12.0 [facility] Comment on above: Performed By: #### L 500.2500, L100.0100 ####[facility] [address] [place], [address] Platelets (Bld) [#/Vol] 309 10*3/uL Normal 150-450 [facility] Comment on above: Performed By: #### L 500.2500, L100.0100 ####[facility] [address] [place], [address] RBC (Bld) [#/Vol] 3.65 10*6/uL Low 4.6-6.2 [facility] Comment on above: Performed By: #### L 500.2500, L100.0100 ####[facility] [address] [place], [address] RDW SD 47.1 fl High 35.1-43.9 [facility] Comment on above: Performed By: #### L 500.2500, L100.0100 ####[facility] [address] [place], [address] WBC (Bld) [#/Vol] 6.7 10*3/uL Normal 4.4-11.0 [facility] Comment on above: Performed By: #### L 500.2500, L100.0100 ####[facility] [address] [place], [address] Basic Metabolic Profile (BMP )on 10-16-2024 BUN/CRE 26.4 RATIO High 10-20 [facility] Comment on above: Performed By: #### L 500.2500, L100.0100 ####[facility] [address] [place], [address] Calcium [Mass/Vol] 8.5 mg/dL Normal 7.6-11.0 [facility] Comment on above: Performed By: #### L 500.2500, L100.0100 ####[facility] [address] [place], [address] Chloride [Moles/Vol] 97 mmol/L Low 98-108 [facility] Comment on above: Performed By: #### L 500.2500, L100.0100 ####[facility] [address] [place], [address] CO2 [Moles/Vol] 29.3 mmol/L Normal 21.0-32.0 [facility] Comment on above: Performed By: #### L 500.2500, L100.0100 ####[facility] [address] [place], [address] Creatinine [Mass/Vol] 0.91 mg/dL Normal 0.70-1.20 [facility] Comment on above: Performed By: #### L 500.2500, L100.0100 ####[facility] [address] [place], [address] ECRCL 74.66 ml/min Normal 50-250 [facility] Comment on above: Performed By: #### L 500.2500, L100.0100 ####[facility] [address] [place], [address] GAP 11 Normal 5-15 [facility] Comment on above: Performed By: #### L 500.2500, L100.0100 ####[facility] [address] [place], [address] GFR/1.73 sq M.predicted among non-blacks MDRD (S/P/Bld) [Vol rate/Area] 93 mL/min/{1.73_m2} Normal >60 [facility] Comment on above: Result Comment: mL/m in/1.73m2 CKD-EPI Creatinine Equation (2020) Performed By: #### L 500.2500, L100.0100 ####[facility] [address] [place], [address] Glucose [Mass/Vol] 151 mg/dL High 70-99 [facility] Comment on above: Performed By: #### L 500.2500, L100.0100 ####[facility] [address] [place], [address] Potassium [Moles/Vol] 4.0 mmol/L Normal 3.3-5.1 [facility] Comment on above: Performed By: #### L 500.2500, L100.0100 ####[facility] [address] [place], [address] Sodium [Moles/Vol] 138 mmol/L Normal 133-145 [facility] Comment on above: Performed By: #### L 500.2500, L100.0100 ####[facility] [address] [place], [address] Urea nitrogen [Mass/Vol] 24 mg/dL High 4-19 [facility] Comment on above: Performed By: #### L 500.2500, L100.0100 ####[facility] [address] [place], [address] Bedside Glucoseon 10-16-2024 FINGERSTICK GLU 149 mg/dL High 74-106 [facility] Comment on above: Result Comment: ORLY GEMENT OF PATIENT CARE PER NURSING PROTOCOL Performed By: #### L 501.080 ####[facility] [address] [place], [address] FINGERSTICK GLU 204 mg/dL High 74-106 [facility] Comment on above: Result Comment: ORLY GEMENT OF PATIENT CARE PER NURSING PROTOCOL Performed By: #### L 501.080 ####[facility] [address] [place], [address] FINGERSTICK GLU 165 mg/dL High 74-106 [facility] Comment on above: Result Comment: ORLY GEMENT OF PATIENT CARE PER NURSING PROTOCOL Performed By: #### L 501.080 ####[facility] [address] [place], [address] FINGERSTICK GLU 136 mg/dL High 74-106 [facility] Comment on above: Result Comment: ORLY GEMENT OF PATIENT CARE PER NURSING PROTOCOL Performed By: #### L 501.080 ####[facility] [address] [place], [address] FINGERSTICK GLU 196 mg/dL High 74-106 [facility] Comment on above: Result Comment: ORLY GEMENT OF PATIENT CARE PER NURSING PROTOCOL Performed By: #### L 501.080 ####[facility] [address] [place], [address] CBC W/Diff, Automatedon - Absolute Lymph 0.78 X10 3/uL Low 0.83-4.51 [facility] Comment on above: Performed By: #### L 500.2500, L100.0100 ####[facility] [address] [place], [address] Absolute Neut 4.2 X10 3/uL Normal 2.0-7.7 [facility] Comment on above: Performed By: #### L 500.2500, L100.0100 ####[facility] [address] [place], [address] Basophils/100 WBC (Bld) 0.3 % Normal 0-1 [facility] Comment on above: Performed By: #### L 500.2500, L100.0100 ####[facility] [address] [place], [address] Eosinophils/100 WBC (Bld) 2.8 % Normal 0-5 [facility] Comment on above: Performed By: #### L 500.2500, L100.0100 ####[facility] [address] [place], [address] Erythrocyte distribution width (RBC) [Ratio] 14.8 % High 11.6-14.6 [facility] Comment on above: Performed By: #### L 500.2500, L100.0100 ####[facility] [address] [place], [address] Hematocrit (Bld) [Volume fraction] 30.5 % Low 40-54 [facility] Comment on above: Performed By: #### L 500.2500, L100.0100 ####[facility] [address] [place], [address] Hemoglobin (Bld) [Mass/Vol] 10.1 g/dL Low 13.0-16.5 [facility] Comment on above: Performed By: #### L 500.2500, L100.0100 ####[facility] [address] [place], [address] IG% 0.500 Normal 0.0-0.9 [facility] Comment on above: Result Comment: IG% - Immature Granulocytes (promyelocytes, myelocytes andmetamyelocytes) > 1% indicates that a LEFT SHIFT is Present. Performed By: #### L 500.2500, L100.0100 ####[facility] [address] [place], [address] Lymphocytes/100 WBC (Bld) 12.9 % Low 19-41 [facility] Comment on above: Performed By: #### L 500.2500, L100.0100 ####[facility] [address] [place], [address] MCH (RBC) [Entitic mass] 28.9 pg Normal 27.0-32.0 [facility] Comment on above: Performed By: #### L 500.2500, L100.0100 ####[facility] [address] [place], [address] MCHC (RBC) [Mass/Vol] 33.1 g/dL Normal 32-36 [facility] Comment on above: Performed By: #### L 500.2500, L100.0100 ####[facility] [address] [place], [address] MCV (RBC) [Entitic vol] 87.4 fL Normal 80-94 [facility] Comment on above: Performed By: #### L 500.2500, L100.0100 ####[facility] [address] [place], [address] Monocytes/100 WBC (Bld) 13.8 % High 0-10 [facility] Comment on above: Performed By: #### L 500.2500, L100.0100 ####[facility] [address] [place], [address] Neutrophils/100 WBC (Bld) 69.7 % Normal 47-70 [facility] Comment on above: Performed By: #### L 500.2500, L100.0100 ####[facility] [address] [place], [address] Nucleated RBC (Bld) [#/Vol] 0 10*3/uL Normal 0-5 [facility] Comment on above: Performed By: #### L 500.2500, L100.0100 ####[facility] [address] [place], [address] Platelet mean volume (Bld) [Entitic vol] 10.0 fL Normal 6.2-12.0 [facility] Comment on above: Performed By: #### L 500.2500, L100.0100 ####[facility] [address] [place], [address] Platelets (Bld) [#/Vol] 266 10*3/uL Normal 150-450 [facility] Comment on above: Performed By: #### L 500.2500, L100.0100 ####[facility] [address] [place], [address] RBC (Bld) [#/Vol] 3.49 10*6/uL Low 4.6-6.2 [facility] Comment on above: Performed By: #### L 500.2500, L100.0100 ####[facility] [address] [place], [address] RDW SD 47.4 fl High 35.1-43.9 [facility] Comment on above: Performed By: #### L 500.2500, L100.0100 ####[facility] [address] [place], [address] WBC (Bld) [#/Vol] 6.1 10*3/uL Normal 4.4-11.0 [facility] Comment on above: Performed By: #### L 500.2500, L100.0100 ####[facility] [address] [place], [address] Basic Metabolic Profile (BMP )on 10-15-2024 BUN/CRE 36.8 RATIO High 10-20 [facility] Comment on above: Performed By: #### L 500.2500, L100.0100 ####[facility] [address] [place], [address] Calcium [Mass/Vol] 8.8 mg/dL Normal 7.6-11.0 [facility] Comment on above: Performed By: #### L 500.2500, L100.0100 ####[facility] [address] [place], [address] Chloride [Moles/Vol] 99 mmol/L Normal 98-108 [facility] Comment on above: Performed By: #### L 500.2500, L100.0100 ####[facility] [address] [place], [address] CO2 [Moles/Vol] 25.3 mmol/L Normal 21.0-32.0 [facility] Comment on above: Performed By: #### L 500.2500, L100.0100 ####[facility] [address] [place], [address] Creatinine [Mass/Vol] 0.89 mg/dL Normal 0.70-1.20 [facility] Comment on above: Performed By: #### L 500.2500, L100.0100 ####[facility] [address] [place], [address] ECRCL 76.33 ml/min Normal 50-250 [facility] Comment on above: Performed By: #### L 500.2500, L100.0100 ####[facility] [address] [place], [address] GAP 12 Normal 5-15 [facility] Comment on above: Performed By: #### L 500.2500, L100.0100 ####[facility] [address] [place], [address] GFR/1.73 sq M.predicted among non-blacks MDRD (S/P/Bld) [Vol rate/Area] 95 mL/min/{1.73_m2} Normal >60 [facility] Comment on above: Result Comment: mL/m in/1.73m2 CKD-EPI Creatinine Equation (2020) Performed By: #### L 500.2500, L100.0100 ####[facility] [address] [place], [address] Glucose [Mass/Vol] 71 mg/dL Normal 70-99 [facility] Comment on above: Performed By: #### L 500.2500, L100.0100 ####[facility] [address] [place], [address] Potassium [Moles/Vol] 3.6 mmol/L Normal 3.3-5.1 [facility] Comment on above: Performed By: #### L 500.2500, L100.0100 ####[facility] [address] [place], [address] Sodium [Moles/Vol] 137 mmol/L Normal 133-145 [facility] Comment on above: Performed By: #### L 500.2500, L100.0100 ####[facility] [address] [place], [address] Urea nitrogen [Mass/Vol] 33 mg/dL High 4-19 [facility] Comment on above: Performed By: #### L 500.2500, L100.0100 ####[facility] [address] [place], [address] Bedside Glucoseon 10-15-2024 FINGERSTICK GLU 273 mg/dL High 74-106 [facility] Comment on above: Result Comment: ORLY DELGADILLO OF PATIENT CARE PER NURSING PROTOCOL Performed By: #### L 501.080 ####[facility] [address] [place], [address] FINGERSTICK GLU 179 mg/dL High 74-106 [facility] Comment on above: Result Comment: ORLY GEMENT OF PATIENT CARE PER NURSING PROTOCOL Performed By: #### L 501.080 ####[facility] [address] [place], [address] FINGERSTICK GLU 70 mg/dL Low 74-106 [facility] Comment on above: Result Comment: ORLY GEMENT OF PATIENT CARE PER NURSING PROTOCOL Performed By: #### L 501.080 ####[facility] [address] [place], [address] FINGERSTICK GLU 77 mg/dL Normal 74-106 [facility] Comment on above: Result Comment: ORLY GEMENT OF PATIENT CARE PER NURSING PROTOCOL Performed By: #### L 501.080 ####[facility] [address] [place], [address] FINGERSTICK GLU 97 mg/dL Normal 74-106 [facility] Comment on above: Result Comment: ORLY GEMENT OF PATIENT CARE PER NURSING PROTOCOL Performed By: #### L 501.080 ####[facility] [address] [place], [address] CBC W/Diff, Automatedon 10-05 Absolute Lymph 0.48 X10 3/uL Low 0.83-4.51 [facility] Comment on above: Performed By: #### L 500.2500, L100.0100 ####[facility] [address] [place], [address] Absolute Neut 3.9 X10 3/uL Normal 2.0-7.7 [facility] Comment on above: Performed By: #### L 500.2500, L100.0100 ####[facility] [address] [place], [address] Basophils/100 WBC (Bld) 0.2 % Normal 0-1 [facility] Comment on above: Performed By: #### L 500.2500, L100.0100 ####[facility] [address] [place], [address] Eosinophils/100 WBC (Bld) 3.0 % Normal 0-5 [facility] Comment on above: Performed By: #### L 500.2500, L100.0100 ####[facility] [address] [place], [address] Erythrocyte distribution width (RBC) [Ratio] 14.7 % High 11.6-14.6 [facility] Comment on above: Performed By: #### L 500.2500, L100.0100 ####[facility] [address] [place], [address] Hematocrit (Bld) [Volume fraction] 30.6 % Low 40-54 [facility] Comment on above: Performed By: #### L 500.2500, L100.0100 ####[facility] [address] [place], [address] Hemoglobin (Bld) [Mass/Vol] 10.1 g/dL Low 13.0-16.5 [facility] Comment on above: Performed By: #### L 500.2500, L100.0100 ####[facility] [address] [place], [address] IG% 0.600 Normal 0.0-0.9 [facility] Comment on above: Result Comment: IG% - Immature Granulocytes (promyelocytes, myelocytes andmetamyelocytes) > 1% indicates that a LEFT SHIFT is Present. Performed By: #### L 500.2500, L100.0100 ####[facility] [address] [place], [address] Lymphocytes/100 WBC (Bld) 8.9 % Low 19-41 [facility] Comment on above: Performed By: #### L 500.2500, L100.0100 ####[facility] [address] [place], [address] MCH (RBC) [Entitic mass] 29.0 pg Normal 27.0-32.0 [facility] Comment on above: Performed By: #### L 500.2500, L100.0100 ####[facility] [address] [place], [address] MCHC (RBC) [Mass/Vol] 33.0 g/dL Normal 32-36 [facility] Comment on above: Performed By: #### L 500.2500, L100.0100 ####[facility] [address] [place], [address] MCV (RBC) [Entitic vol] 87.9 fL Normal 80-94 [facility] Comment on above: Performed By: #### L 500.2500, L100.0100 ####[facility] [address] [place], [address] Monocytes/100 WBC (Bld) 14.5 % High 0-10 [facility] Comment on above: Performed By: #### L 500.2500, L100.0100 ####[facility] [address] [place], [address] Neutrophils/100 WBC (Bld) 72.8 % High 47-70 [facility] Comment on above: Performed By: #### L 500.2500, L100.0100 ####[facility] [address] [place], [address] Nucleated RBC (Bld) [#/Vol] 0 10*3/uL Normal 0-5 [facility] Comment on above: Performed By: #### L 500.2500, L100.0100 ####[facility] [address] [place], [address] Platelet mean volume (Bld) [Entitic vol] 10.0 fL Normal 6.2-12.0 [facility] Comment on above: Performed By: #### L 500.2500, L100.0100 ####[facility] [address] [place], [address] Platelets (Bld) [#/Vol] 254 10*3/uL Normal 150-450 [facility] Comment on above: Performed By: #### L 500.2500, L100.0100 ####[facility] [address] [place], [address] RBC (Bld) [#/Vol] 3.48 10*6/uL Low 4.6-6.2 [facility] Comment on above: Performed By: #### L 500.2500, L100.0100 ####[facility] [address] [place], [address] RDW SD 47.1 fl High 35.1-43.9 [facility] Comment on above: Performed By: #### L 500.2500, L100.0100 ####[facility] [address] [place], [address] WBC (Bld) [#/Vol] 5.4 10*3/uL Normal 4.4-11.0 [facility] Comment on above: Performed By: #### L 500.2500, L100.0100 ####[facility] [address] [place], [address] Culture, Blood (WB)on 2024 CUB Blood cultures x2, from two different sites No growth in 5 days. Normal [facility] Comment on above: Performed By: #### L 501.5200, M200.1000, L503.7505, L100.0100, L503.6005, L500.2500, L503.5510, L500.3400 ####[facility] [address] [place], [address] Magnesiumon 10-15-2024 Magnesium [Mass/Vol] 1.5 mg/dL Normal 1.5-2.2 [facility] Comment on above: Performed By: #### L 501.5200 ####[facility] [address] [place], [address] Magnesium (Unsp spec) [Mass/ Vol]Ordered By: Tay Jaquez on 10-15-2024 Magnesium measurement (mass/volume) 1.5 mg/dL 1.5-2.2 [facility] Basic Metabolic Profile (BMP )on 10-14-2024 BUN/CRE 38.9 RATIO High 10 [facility] Comment on above: Performed By: #### L 500.2500, L100.0100 ####[facility] [address] [place], [address] Calcium [Mass/Vol] 8.6 mg/dL Normal 7.6-11.0 [facility] Comment on above: Performed By: #### L 500.2500, L100.0100 ####[facility] [address] [place], [address] Chloride [Moles/Vol] 101 mmol/L Normal 98-108 [facility] Comment on above: Performed By: #### L 500.2500, L100.0100 ####[facility] [address] [place], [address] CO2 [Moles/Vol] 20.7 mmol/L Low 21.0-32.0 [facility] Comment on above: Performed By: #### L 500.2500, L100.0100 ####[facility] [address] [place], [address] Creatinine [Mass/Vol] 1.42 mg/dL High 0.70-1.20 [facility] Comment on above: Performed By: #### L 500.2500, L100.0100 ####[facility] [address] [place], [address] ECRCL 47.84 ml/min Low 50-250 [facility] Comment on above: Performed By: #### L 500.2500, L100.0100 ####[facility] [address] [place], [address] GAP 16 High 5-15 [facility] Comment on above: Performed By: #### L 500.2500, L100.0100 ####[facility] [address] [place], [address] GFR/1.73 sq M.predicted among non-blacks MDRD (S/P/Bld) [Vol rate/Area] 54 mL/min/{1.73_m2} Low >60 [facility] Comment on above: Result Comment: mL/m in/1.73m2 CKD-EPI Creatinine Equation (2020) Performed By: #### L 500.2500, L100.0100 ####[facility] [address] [place], [address] Glucose [Mass/Vol] 81 mg/dL Normal 70-99 [facility] Comment on above: Performed By: #### L 500.2500, L100.0100 ####[facility] [address] [place], [address] Potassium [Moles/Vol] 4.2 mmol/L Normal 3.3-5.1 [facility] Comment on above: Performed By: #### L 500.2500, L100.0100 ####[facility] [address] [place], [address] Sodium [Moles/Vol] 137 mmol/L Normal 133-145 [facility] Comment on above: Performed By: #### L 500.2500, L100.0100 ####[facility] [address] [place], [address] Urea nitrogen [Mass/Vol] 55 mg/dL High 4-19 [facility] Comment on above: Performed By: #### L 500.2500, L100.0100 ####[facility] [address] [place], [address] Bedside Glucoseon 10-14-2024 FINGERSTICK GLU 98 mg/dL Normal 74-106 [facility] Comment on above: Result Comment: ORLY GEMENT OF PATIENT CARE PER NURSING PROTOCOL Performed By: #### L 501.080 ####[facility] [address] [place], [address] FINGERSTICK GLU 161 mg/dL High 74-106 [facility] Comment on above: Result Comment: ORLY GEMENT OF PATIENT CARE PER NURSING PROTOCOL Performed By: #### L 501.080 ####[facility] [address] [place], [address] FINGERSTICK GLU 70 mg/dL Low 74-106 [facility] Comment on above: Result Comment: ORLY GEMENT OF PATIENT CARE PER NURSING PROTOCOL Performed By: #### L 501.080 ####[facility] [address] [place], [address] CBC W/Diff, Automatedon 03- 0-2024 Absolute Lymph 0.52 X10 3/uL Low 0.83-4.51 [facility] Comment on above: Performed By: #### L 500.2500, L100.0100 ####[facility] [address] [place], [address] Absolute Neut 4.8 X10 3/uL Normal 2.0-7.7 [facility] Comment on above: Performed By: #### L 500.2500, L100.0100 ####[facility] [address] [place], [address] Basophils/100 WBC (Bld) 0.2 % Normal 0-1 [facility] Comment on above: Performed By: #### L 500.2500, L100.0100 ####[facility] [address] [place], [address] Eosinophils/100 WBC (Bld) 2.4 % Normal 0-5 [facility] Comment on above: Performed By: #### L 500.2500, L100.0100 ####[facility] [facility] [address] [place], [address] Erythrocyte distribution width (RBC) [Ratio] 14.5 % Normal 11.6-14.6 [facility] Comment on above: Performed By: #### L 500.2500, L100.0100 ####[facility] [address] [place], [address] Hematocrit (Bld) [Volume fraction] 28.8 % Low 40-54 [facility] Comment on above: Performed By: #### L 500.2500, L100.0100 ####[facility] [address] [place], [address] Hemoglobin (Bld) [Mass/Vol] 9.4 g/dL Low 13.0-16.5 [facility] Comment on above: Performed By: #### L 500.2500, L100.0100 ####[facility] [address] [place], [address] IG% 0.500 Normal 0.0-0.9 [facility] Comment on above: Result Comment: IG% - Immature Granulocytes (promyelocytes, myelocytes andmetamyelocytes) > 1% indicates that a LEFT SHIFT is Present. Performed By: #### L 500.2500, L100.0100 ####[facility] [address] [place], [address] Lymphocytes/100 WBC (Bld) 8.2 % Low 19-41 [facility] Comment on above: Performed By: #### L 500.2500, L100.0100 ####[facility] [address] [place], [address] MCH (RBC) [Entitic mass] 28.6 pg Normal 27.0-32.0 [facility] Comment on above: Performed By: #### L 500.2500, L100.0100 ####[facility] [address] [place], [address] MCHC (RBC) [Mass/Vol] 32.6 g/dL Normal 32-36 [facility] Comment on above: Performed By: #### L 500.2500, L100.0100 ####[facility] [address] [place], [address] MCV (RBC) [Entitic vol] 87.5 fL Normal 80-[address] [facility] Comment on above: Performed By: #### L 500.2500, L100.0100 ####[facility] [address] [place], [address] Monocytes/100 WBC (Bld) 12.5 % High 0-[address] [facility] Comment on above: Performed By: #### L 500.2500, L100.0100 ####[facility] [address] [place], [address] Neutrophils/100 WBC (Bld) 76.2 % High 47-70 [facility] Comment on above: Performed By: #### L 500.2500, L100.0100 ####[facility] [address] [place], [address] Nucleated RBC (Bld) [#/Vol] 0 10*3/uL Normal 0-5 [facility] Comment on above: Performed By: #### L 500.2500, L100.0100 ####[facility] [address] [place], [address] Platelet mean volume (Bld) [Entitic vol] 10.2 fL Normal 6.2-12.0 [facility] Comment on above: Performed By: #### L 500.2500, L100.0100 ####[facility] [address] [place], [address] Platelets (Bld) [#/Vol] 222 10*3/uL Normal 150-450 [facility] Comment on above: Performed By: #### L 500.2500, L100.0100 ####[facility] [address] [place], [address] RBC (Bld) [#/Vol] 3.29 10*6/uL Low 4.6-6.2 [facility] Comment on above: Performed By: #### L 500.2500, L100.0100 ####[facility] [address] [place], [address] RDW SD 46.5 fl High 35.1-43.9 [facility] Comment on above: Performed By: #### L 500.2500, L100.0100 ####[facility] [address] [place], [address] WBC (Bld) [#/Vol] 6.3 10*3/uL Normal 4.4-11.0 [facility] Comment on above: Performed By: #### L 500.2500, L100.0100 ####[facility] [address] [place], [address] Electrocardiogram reportOrde red By: Etienne Darden on 10-14-2024 EKG study [facility] Work Phone: [phone] Basic Metabolic Profile (BMP )on 10-13-2024 BUN/CRE 29.0 RATIO High 10-20 [facility] Comment on above: Performed By: #### L 500.2500, L100.0100 ####[facility] [address] [place], [address] Calcium [Mass/Vol] 9.0 mg/dL Normal 7.6-11.0 [facility] Comment on above: Performed By: #### L 500.2500, L100.0100 ####[facility] [address] [place], [address] Chloride [Moles/Vol] 97 mmol/L Low 98-108 [facility] Comment on above: Performed By: #### L 500.2500, L100.0100 ####[facility] [address] [place], [address] CO2 [Moles/Vol] 22.2 mmol/L Normal 21.0-32.0 [facility] Comment on above: Performed By: #### L 500.2500, L100.0100 ####[facility] [address] [place], [address] Creatinine [Mass/Vol] 2.08 mg/dL High 0.70-1.20 [facility] Comment on above: Performed By: #### L 500.2500, L100.0100 ####[facility] [address] [place], [address] ECRCL 32.66 ml/min Low 50-250 [facility] Comment on above: Performed By: #### L 500.2500, L100.0100 ####[facility] [address] [place], [address] GAP 15 Normal 5-15 [facility] Comment on above: Performed By: #### L 500.2500, L100.0100 ####[facility] [address] [place], [address] GFR/1.73 sq M.predicted among non-blacks MDRD (S/P/Bld) [Vol rate/Area] 34 mL/min/{1.73_m2} Low >60 [facility] Comment on above: Result Comment: mL/m in/1.73m2 CKD-EPI Creatinine Equation (2020) Performed By: #### L 500.2500, L100.0100 ####[facility] [address] [place], [address] Glucose [Mass/Vol] 169 mg/dL High 70-99 [facility] Comment on above: Performed By: #### L 500.2500, L100.0100 ####[facility] [address] [place], [address] Potassium [Moles/Vol] 4.6 mmol/L Normal 3.3-5.1 [facility] Comment on above: Performed By: #### L 500.2500, L100.0100 ####[facility] [address] [place], [address] Sodium [Moles/Vol] 134 mmol/L Normal 133-145 [facility] Comment on above: Performed By: #### L 500.2500, L100.0100 ####[facility] [address] [place], [address] Urea nitrogen [Mass/Vol] 60 mg/dL High 4-19 [facility] Comment on above: Performed By: #### L 500.2500, L100.0100 ####[facility] [address] [place], [address] Bedside Glucoseon 10-13-2024 FINGERSTICK GLU 234 mg/dL High 74-106 [facility] Comment on above: Result Comment: ORLY GEMENT OF PATIENT CARE PER NURSING PROTOCOL Performed By: #### L 501.080 ####[facility] [address] [place], [address] FINGERSTICK GLU 212 mg/dL High 74-106 [facility] Comment on above: Result Comment: ORLY GEMENT OF PATIENT CARE PER NURSING PROTOCOL Performed By: #### L 501.080 ####[facility] [address] [place], [address] FINGERSTICK GLU 146 mg/dL High 74-106 [facility] Comment on above: Result Comment: ORLY GEMENT OF PATIENT CARE PER NURSING PROTOCOL Performed By: #### L 501.080 ####[facility] [address] [place], [address] FINGERSTICK GLU 156 mg/dL High 74-106 [facility] Comment on above: Result Comment: ORLY DELGADILLO OF PATIENT CARE PER NURSING PROTOCOL Performed By: #### L 501.080 ####[facility] [address] [place], [address] CBC W/Diff, Automatedon 03-0 9-2024 Absolute Lymph 0.73 X10 3/uL Low 0.83-4.51 [facility] Comment on above: Performed By: #### L 500.2500, L100.0100 ####[facility] [address] [place], [address] Absolute Neut 5.8 X10 3/uL Normal 2.0-7.7 [facility] Comment on above: Performed By: #### L 500.2500, L100.0100 ####[facility] [address] [place], [address] Basophils/100 WBC (Bld) 0.3 % Normal 0-1 [facility] Comment on above: Performed By: #### L 500.2500, L100.0100 ####[facility] [address] [place], [address] Eosinophils/100 WBC (Bld) 1.4 % Normal 0-5 [facility] Comment on above: Performed By: #### L 500.2500, L100.0100 ####[facility] [address] [place], [address] Erythrocyte distribution width (RBC) [Ratio] 14.9 % High 11.6-14.6 [facility] Comment on above: Performed By: #### L 500.2500, L100.0100 ####[facility] [address] [place], [address] Hematocrit (Bld) [Volume fraction] 32.1 % Low 40-54 [facility] Comment on above: Performed By: #### L 500.2500, L100.0100 ####[facility] [address] [place], [address] Hemoglobin (Bld) [Mass/Vol] 10.3 g/dL Low 13.0-16.5 [facility] Comment on above: Performed By: #### L 500.2500, L100.0100 ####[facility] [address] [place], [address] IG% 0.700 Normal 0.0-0.9 [facility] Comment on above: Result Comment: IG% - Immature Granulocytes (promyelocytes, myelocytes andmetamyelocytes) > 1% indicates that a LEFT SHIFT is Present. Performed By: #### L 500.2500, L100.0100 ####[facility] [address] [place], [address] Lymphocytes/100 WBC (Bld) 9.6 % Low 19-41 [facility] Comment on above: Performed By: #### L 500.2500, L100.0100 ####[facility] [address] [place], [address] MCH (RBC) [Entitic mass] 28.9 pg Normal 27.0-32.0 [facility] Comment on above: Performed By: #### L 500.2500, L100.0100 ####[facility] [address] [place], [address] MCHC (RBC) [Mass/Vol] 32.1 g/dL Normal 32-36 [facility] Comment on above: Performed By: #### L 500.2500, L100.0100 ####[facility] [address] [place], [address] MCV (RBC) [Entitic vol] 89.9 fL Normal 80-94 [facility] Comment on above: Performed By: #### L 500.2500, L100.0100 ####[facility] [address] [place], [address] Monocytes/100 WBC (Bld) 12.0 % High 0-10 [facility] Comment on above: Performed By: #### L 500.2500, L100.0100 ####[facility] [address] [place], [address] Neutrophils/100 WBC (Bld) 76.0 % High 47-70 [facility] Comment on above: Performed By: #### L 500.2500, L100.0100 ####[facility] [address] [place], [address] Nucleated RBC (Bld) [#/Vol] 0 10*3/uL Normal 0-5 [facility] Comment on above: Performed By: #### L 500.2500, L100.0100 ####[facility] [address] [place], [address] Platelet mean volume (Bld) [Entitic vol] 10.5 fL Normal 6.2-12.0 [facility] Comment on above: Performed By: #### L 500.2500, L100.0100 ####[facility] [address] [place], [address] Platelets (Bld) [#/Vol] 215 10*3/uL Normal 150-450 [facility] Comment on above: Performed By: #### L 500.2500, L100.0100 ####[facility] [address] [place], [address] RBC (Bld) [#/Vol] 3.57 10*6/uL Low 4.6-6.2 [facility] Comment on above: Performed By: #### L 500.2500, L100.0100 ####[facility] [address] [place], [address] RDW SD 48.5 fl High 35.1-43.9 [facility] Comment on above: Performed By: #### L 500.2500, L100.0100 ####[facility] [address] [place], [address] WBC (Bld) [#/Vol] 7.6 10*3/uL Normal 4.4-11.0 [facility] Comment on above: Performed By: #### L 500.2500, L100.0100 ####[facility] [address] [place], [address] Chest 1 View (Portable)on Chest 1 View (Portable) Normal [facility] L503.7505on 10-13-2024 Natriuretic peptide B (Bld) [Mass/Vol] 8718 pg/mL High <=900 [facility] Comment on above: Result Comment: Hear t Failure Unlikely: < 300 pg/mLHeart Failure Likely< 50 Years: > 450 pg/mL50-75 Years: > 900 pg/mL>75 Years: > 1800 pg/mL Performed By: #### L 503.7505 ####[facility] [address] [place], [address] No Panel InformationOrdered By: Prateek Smith on 10-13-2024 8718 pg/mL High <900 [facility] Urine Cultureon 10-13-2024 URC Normal [facility] Comment on above: Performed By: #### M 100.2200, L400.0001 ####[facility] [address] [place], [address] Basic Metabolic Profile (BMP )on 10-12-2024 BUN/CRE 21.6 RATIO High 10-20 [facility] Comment on above: Performed By: #### L 500.2500, L100.0500 ####[facility] [address] [place], [address] Calcium [Mass/Vol] 8.3 mg/dL Normal 7.6-11.0 [facility] Comment on above: Performed By: #### L 500.2500, L100.0500 ####[facility] [address] [place], [address] Chloride [Moles/Vol] 98 mmol/L Normal 98-108 [facility] Comment on above: Performed By: #### L 500.2500, L100.0500 ####[facility] [address] [place], [address] CO2 [Moles/Vol] 20.5 mmol/L Low 21.0-32.0 [facility] Comment on above: Performed By: #### L 500.2500, L100.0500 ####[facility] [address] [place], [address] Creatinine [Mass/Vol] 2.37 mg/dL High 0.70-1.20 [facility] Comment on above: Performed By: #### L 500.2500, L100.0500 ####[facility] [address] [place], [address] ECRCL 28.27 ml/min Low 50-250 [facility] Comment on above: Performed By: #### L 500.2500, L100.0500 ####[facility] [address] [place], [address] GAP 16 High 5-15 [facility] Comment on above: Performed By: #### L 500.2500, L100.0500 ####[facility] [address] [place], [address] GFR/1.73 sq M.predicted among non-blacks MDRD (S/P/Bld) [Vol rate/Area] 29 mL/min/{1.73_m2} Low >60 [facility] Comment on above: Result Comment: mL/m in/1.73m2 CKD-EPI Creatinine Equation (2020) Performed By: #### L 500.2500, L100.0500 ####[facility] [address] [place], [address] Glucose [Mass/Vol] 226 mg/dL High 70-99 [facility] Comment on above: Performed By: #### L 500.2500, L100.0500 ####[facility] [address] [place], [address] Potassium [Moles/Vol] 4.4 mmol/L Normal 3.3-5.1 [facility] Comment on above: Performed By: #### L 500.2500, L100.0500 ####[facility] [address] [place], [address] Sodium [Moles/Vol] 135 mmol/L Normal 133-145 [facility] Comment on above: Performed By: #### L 500.2500, L100.0500 ####[facility] [address] [place], [address] Urea nitrogen [Mass/Vol] 51 mg/dL High 4-19 [facility] Comment on above: Performed By: #### L 500.2500, L100.0500 ####[facility] [address] [place], [address] Bedside Glucoseon 10-12-2024 FINGERSTICK GLU 144 mg/dL High 74-106 [facility] Comment on above: Result Comment: ORLY GEMENT OF PATIENT CARE PER NURSING PROTOCOL Performed By: #### L 501.080 ####[facility] [address] [place], [address] FINGERSTICK GLU 241 mg/dL High 74-106 [facility] Comment on above: Result Comment: ORLY GEMENT OF PATIENT CARE PER NURSING PROTOCOL Performed By: #### L 501.080 ####[facility] [address] [place], [address] FINGERSTICK GLU 358 mg/dL High 74-106 [facility] Comment on above: Result Comment: ORLY GEMENT OF PATIENT CARE PER NURSING PROTOCOL Performed By: #### L 501.080 ####[facility] [address] [place], [address] FINGERSTICK GLU 178 mg/dL High 74-106 [facility] Comment on above: Result Comment: ORLY GEMENT OF PATIENT CARE PER NURSING PROTOCOL Performed By: #### L 501.080 ####[facility] [address] [place], [address] CBC-Complete Blood Cnt No Di ffon 10-12-2024 Erythrocyte distribution width (RBC) [Ratio] 15.1 % High 11.6-14.6 [facility] Comment on above: Performed By: #### L 500.2500, L100.0500 ####[facility] [address] [place], [address] Hematocrit (Bld) [Volume fraction] 27.7 % Low 40-54 [facility] Comment on above: Performed By: #### L 500.2500, L100.0500 ####[facility] [address] [place], [address] Hemoglobin (Bld) [Mass/Vol] 9.1 g/dL Low 13.0-16.5 [facility] Comment on above: Performed By: #### L 500.2500, L100.0500 ####[facility] [address] [place], [address] MCH (RBC) [Entitic mass] 29.2 pg Normal 27.0-32.0 [facility] Comment on above: Performed By: #### L 500.2500, L100.0500 ####[facility] [address] [place], [address] MCHC (RBC) [Mass/Vol] 32.9 g/dL Normal 32-36 [facility] Comment on above: Performed By: #### L 500.2500, L100.0500 ####[facility] [address] [place], [address] MCV (RBC) [Entitic vol] 88.8 fL Normal 80-94 [facility] Comment on above: Performed By: #### L 500.2500, L100.0500 ####[facility] [address] [place], [address] Platelet mean volume (Bld) [Entitic vol] 10.4 fL Normal 6.2-12.0 [facility] Comment on above: Performed By: #### L 500.2500, L100.0500 ####[facility] [address] [place], [address] Platelets (Bld) [#/Vol] 193 10*3/uL Normal 150-450 [facility] Comment on above: Performed By: #### L 500.2500, L100.0500 ####[facility] [address] [place], [address] RBC (Bld) [#/Vol] 3.12 10*6/uL Low 4.6-6.2 [facility] Comment on above: Performed By: #### L 500.2500, L100.0500 ####[facility] [address] [place], [address] RDW SD 48.5 fl High 35.1-43.9 [facility] Comment on above: Performed By: #### L 500.2500, L100.0500 ####[facility] [address] [place], [address] WBC (Bld) [#/Vol] 7.7 10*3/uL Normal 4.4-11.0 [facility] Comment on above: Performed By: #### L 500.2500, L100.0500 ####[facility] [address] [place], [address] ALP [Catalytic activity/Vol] Ordered By: [facility] Kwabena on 10-11-2024 Serum or plasma alkaline phosphatase measurement 72 U/L 40-129 [facility] ALT [Catalytic activity/Vol] Ordered By: [facility] on 10-11-2024 Serum or plasma alanine aminotransferase (ALT) measurement 145 U/L High <47 [facility] Albumin [Mass/Vol]Ordered By : Kendra Kwabena on 10-11-2024 Serum or plasma albumin measurement (mass/volume) 3.3 g/dL Low 3.4-4.8 [facility] Albumin/Globulin [Mass ratio ]Ordered By: [facility] Kwabena on 10-11-2024 Serum or plasma albumin/globulin mass ratio 1.1 RATIO 0.9-2.4 [facility] Bedside Glucoseon 10-11-2024 FINGERSTICK GLU 290 mg/dL High 74-106 [facility] Comment on above: Result Comment: ORLY GEMENT OF PATIENT CARE PER NURSING PROTOCOL Performed By: #### L 501.080 ####[facility] [address] [place], [address] FINGERSTICK GLU 255 mg/dL High 74-106 [facility] Comment on above: Result Comment: ORLY GEMENT OF PATIENT CARE PER NURSING PROTOCOL Performed By: #### L 501.080 ####[facility] [address] [place], [address] FINGERSTICK GLU 180 mg/dL High 74-106 [facility] Comment on above: Result Comment: ORLY GEMENT OF PATIENT CARE PER NURSING PROTOCOL Performed By: #### L 501.080 ####[facility] [address] [place], [address] Bilirubin, totalOrdered By: Kendra Yuan on 10-11-2024 Bilirubin, total 0.42 mg/dL 0.00-1.30 [facility] CBC W/Diff, Automatedon Absolute Lymph 0.78 X10 3/uL Low 0.83-4.51 [facility] Comment on above: Performed By: #### L 100.0100, L500.4050, L500.4100, L501.5200 ####[facility] [address] [place], [address] Absolute Neut 5.7 X10 3/uL Normal 2.0-7.7 [facility] Comment on above: Performed By: #### L 100.0100, L500.4050, L500.4100, L501.5200 ####[facility] [address] [place], [address] Basophils/100 WBC (Bld) 0.3 % Normal 0-1 [facility] Comment on above: Performed By: #### L 100.0100, L500.4050, L500.4100, L501.5200 ####[facility] [address] [place], [address] Eosinophils/100 WBC (Bld) 0.0 % Normal 0-5 [facility] Comment on above: Performed By: #### L 100.0100, L500.4050, L500.4100, L501.5200 ####[facility] [address] [place], [address] Erythrocyte distribution width (RBC) [Ratio] 15.0 % High 11.6-14.6 [facility] Comment on above: Performed By: #### L 100.0100, L500.4050, L500.4100, L501.5200 ####[facility] [address] [place], [address] Hematocrit (Bld) [Volume fraction] 27.3 % Low 40-54 [facility] Comment on above: Performed By: #### L 100.0100, L500.4050, L500.4100, L501.5200 ####[facility] [address] [place], [address] Hemoglobin (Bld) [Mass/Vol] 8.9 g/dL Low 13.0-16.5 [facility] Comment on above: Performed By: #### L 100.0100, L500.4050, L500.4100, L501.5200 ####[facility] [address] [place], [address] IG% 0.400 Normal 0.0-0.9 [facility] Comment on above: Result Comment: IG% - Immature Granulocytes (promyelocytes, myelocytes andmetamyelocytes) > 1% indicates that a LEFT SHIFT is Present. Performed By: #### L 100.0100, L500.4050, L500.4100, L501.5200 ####[facility] [address] [place], [address] Lymphocytes/100 WBC (Bld) 10.4 % Low 19-41 [facility] Comment on above: Performed By: #### L 100.0100, L500.4050, L500.4100, L501.5200 ####[facility] [address] [place], [address] MCH (RBC) [Entitic mass] 28.9 pg Normal 27.0-32.0 [facility] Comment on above: Performed By: #### L 100.0100, L500.4050, L500.4100, L501.5200 ####[facility] [address] [place], [address] MCHC (RBC) [Mass/Vol] 32.6 g/dL Normal 32-36 [facility] Comment on above: Performed By: #### L 100.0100, L500.4050, L500.4100, L501.5200 ####[facility] [address] [place], [address] MCV (RBC) [Entitic vol] 88.6 fL Normal 80-94 [facility] Comment on above: Performed By: #### L 100.0100, L500.4050, L500.4100, L501.5200 ####[facility] [address] [place], [address] Monocytes/100 WBC (Bld) 13.3 % High 0-10 [facility] Comment on above: Performed By: #### L 100.0100, L500.4050, L500.4100, L501.5200 ####[facility] [address] [place], [address] Neutrophils/100 WBC (Bld) 75.6 % High 47-70 [facility] Comment on above: Performed By: #### L 100.0100, L500.4050, L500.4100, L501.5200 ####[facility] [address] [place], [address] Nucleated RBC (Bld) [#/Vol] 0 10*3/uL Normal 0-5 [facility] Comment on above: Performed By: #### L 100.0100, L500.4050, L500.4100, L501.5200 ####[facility] [address] [place], [address] Platelet mean volume (Bld) [Entitic vol] 10.2 fL Normal 6.2-12.0 [facility] Comment on above: Performed By: #### L 100.0100, L500.4050, L500.4100, L501.5200 ####[facility] [address] [place], [address] Platelets (Bld) [#/Vol] 210 10*3/uL Normal 150-450 [facility] Comment on above: Performed By: #### L 100.0100, L500.4050, L500.4100, L501.5200 ####[facility] [address] [place], [address] RBC (Bld) [#/Vol] 3.08 10*6/uL Low 4.6-6.2 [facility] Comment on above: Performed By: #### L 100.0100, L500.4050, L500.4100, L501.5200 ####[facility] [address] [place], [address] RDW SD 48.5 fl High 35.1-43.9 [facility] Comment on above: Performed By: #### L 100.0100, L500.4050, L500.4100, L501.5200 ####[facility] [address] [place], [address] WBC (Bld) [#/Vol] 7.5 10*3/uL Normal 4.4-11.0 [facility] Comment on above: Performed By: #### L 100.0100, L500.4050, L500.4100, L501.5200 ####[facility] [address] [place], [address] Calculated very low density lipoprotein (VLDL) cholesterol measurementOrdered By: Kendra Yuan on 10-11-2024 Calculated very low density lipoprotein (VLDL) cholesterol measurement 20 mg/dL 5-40 [facility] Cholesterol [Mass/Vol]Ordere d By: Kendra Yuan on 10-11-2024 Serum or plasma cholesterol measurement (mass/volume) 94 mg/dL <201 [facility] Cholesterol in HDL [Mass/Vol ]Ordered By: Kendra Yuan on 10-11-2024 Serum or plasma cholesterol in HDL measurement (mass/volume) 31 mg/dL Low >40 [facility] Comprehensive Metabolic Prof ilon 10-11-2024 Albumin [Mass/Vol] 3.3 g/dL Low 3.4-4.8 [facility] Comment on above: Performed By: #### L 100.0100, L500.4050, L500.4100, L501.5200 ####[facility] [address] [place], [address] Albumin/Globulin [Mass ratio] 1.1 {ratio} Normal 0.9-2.4 [facility] Comment on above: Performed By: #### L 100.0100, L500.4050, L500.4100, L501.5200 ####[facility] [address] [place], [address] ALK PHOS 72 U/L Normal 40-129 [facility] Comment on above: Performed By: #### L 100.0100, L500.4050, L500.4100, L501.5200 ####[facility] [address] [place], [address] ALT [Catalytic activity/Vol] 145 U/L High <=46 [facility] Comment on above: Performed By: #### L 100.0100, L500.4050, L500.4100, L501.5200 ####[facility] [address] [place], [address] AST [Catalytic activity/Vol] 263 U/L High <=37 [facility] Comment on above: Performed By: #### L 100.0100, L500.4050, L500.4100, L501.5200 ####[facility] [address] [place], [address] Bilirubin [Mass/Vol] 0.42 mg/dL Normal 0.00-1.30 [facility] Comment on above: Performed By: #### L 100.0100, L500.4050, L500.4100, L501.5200 ####[facility] [address] [place], [address] BUN/CRE 16.6 RATIO Normal 10-20 [facility] Comment on above: Performed By: #### L 100.0100, L500.4050, L500.4100, L501.5200 ####[facility] [address] [place], [address] Calcium [Mass/Vol] 7.4 mg/dL Low 7.6-11.0 [facility] Comment on above: Performed By: #### L 100.0100, L500.4050, L500.4100, L501.5200 ####[facility] [address] [place], [address] Chloride [Moles/Vol] 101 mmol/L Normal 98-108 [facility] Comment on above: Performed By: #### L 100.0100, L500.4050, L500.4100, L501.5200 ####[facility] [address] [place], [address] CO2 [Moles/Vol] 21.8 mmol/L Normal 21.0-32.0 [facility] Comment on above: Performed By: #### L 100.0100, L500.4050, L500.4100, L501.5200 ####[facility] [address] [place], [address] Creatinine [Mass/Vol] 2.11 mg/dL High 0.70-1.20 [facility] Comment on above: Performed By: #### L 100.0100, L500.4050, L500.4100, L501.5200 ####[facility] [address] [place], [address] ECRCL 32.20 ml/min Low 50-250 [facility] Comment on above: Performed By: #### L 100.0100, L500.4050, L500.4100, L501.5200 ####[facility] [address] [place], [address] GAP 17 High 5-15 [facility] Comment on above: Performed By: #### L 100.0100, L500.4050, L500.4100, L501.5200 ####[facility] [address] [place], [address] GFR/1.73 sq M.predicted among non-blacks MDRD (S/P/Bld) [Vol rate/Area] 34 mL/min/{1.73_m2} Low >60 [facility] Comment on above: Result Comment: mL/m in/1.73m2 CKD-EPI Creatinine Equation (2020) Performed By: #### L 100.0100, L500.4050, L500.4100, L501.5200 ####[facility] [address] [place], [address] Globulin (S) [Mass/Vol] 3.0 g/dL Normal 2.2-4.[address] [facility] Comment on above: Performed By: #### L 100.0100, L500.4050, L500.4100, L501.5200 ####[facility] [address] [place], [address] Glucose [Mass/Vol] 167 mg/dL High 70-99 [facility] Comment on above: Performed By: #### L 100.0100, L500.4050, L500.4100, L501.5200 ####[facility] [address] [place], [address] Potassium [Moles/Vol] 4.2 mmol/L Normal 3.3-5.1 [facility] Comment on above: Performed By: #### L 100.0100, L500.4050, L500.4100, L501.5200 ####[facility] [address] [place], [address] Sodium [Moles/Vol] 139 mmol/L Normal 133-145 [facility] Comment on above: Performed By: #### L 100.0100, L500.4050, L500.4100, L501.5200 ####[facility] [address] [place], [address] T PROT 6.2 g/dL Normal 5.9-8.4 [facility] Comment on above: Performed By: #### L 100.0100, L500.4050, L500.4100, L501.5200 ####[facility] [address] [place], [address] Urea nitrogen [Mass/Vol] 35 mg/dL High 4-19 [facility] Comment on above: Performed By: #### L 100.0100, L500.4050, L500.4100, L501.5200 ####[facility] [address] [place], [address] Consultation - Infectious Dx on 10-11-2024 Consultation - Infectious Dx Normal [facility] Consultation - Nephrologyon 10-11-2024 Consultation - Nephrology Normal [facility] Consultation - Urologyon Consultation - Urology Normal [facility] LDL calc ser/plasOrdered By: Kendra Yuan on 10-11-2024 LDL calc ser/plas 43 mg/dL [facility] Lipid Profileon 10-11-2024 CHOL:HDL 3.00 Normal [facility] Comment on above: Performed By: #### L 100.0100, L500.4050, L500.4100, L501.5200 ####[facility] [address] [place], [address] Cholesterol [Mass/Vol] 94 mg/dL Normal <=200 [facility] Comment on above: Result Comment: Chol esterol level, Desirable <200 mg/dLBorderline high cholesterol 200-239 mg/dLHigh cholesterol >=240 mg/dLRecommendations of the NCEP Adult Treatment Panel for thefollowing risk-cutoff thresholds for the [place] Americanpulation. Performed By: #### L 100.0100, L500.4050, L500.4100, L501.5200 ####[facility] [address] [place], [address] Cholesterol in HDL [Mass/Vol] 31 mg/dL Low [facility] Comment on above: Result Comment: Melissa onal Cholesterol Education Program (NCEP) guidelines:<40 mg/dL: Low HDL-cholesterol (major risk factor for CHD)>= 60 mg/dL: High HDL-cholesterol (negative risk factor forCHD)HDL-cholesterol is affected by a number of factors, e.g.smoking, exercise, hormones, sex and age. Performed By: #### L 100.0100, L500.4050, L500.4100, L501.5200 ####[facility] [address] [place], [address] Cholesterol in LDL [Mass/Vol] 43 mg/dL Normal [facility] Comment on above: Result Comment: Bord hkmkrq=883-370 mg/dL Higher Kayz=784 mg/dL or greater Performed By: #### L 100.0100, L500.4050, L500.4100, L501.5200 ####[facility] [address] [place], [address] Cholesterol in VLDL [Mass/Vol] 20 mg/dL Normal 5-40 [facility] Comment on above: Performed By: #### L 100.0100, L500.4050, L500.4100, L501.5200 ####[facility] [address] [place], [address] Triglyceride [Mass/Vol] 101 mg/dL Normal [facility] Comment on above: Result Comment: The drugs N-Acetylcysteine and Metamizole may falselydepress this assay.Normal range: <150 mg/dLBorderline High: 150-199 mg/dLHigh: 200-499 mg/dLVery High: >500 mg/dL Performed By: #### L 100.0100, L500.4050, L500.4100, L501.5200 ####[facility] [address] [place], [address] Magnesiumon 10-11-2024 Magnesium [Mass/Vol] 1.5 mg/dL Normal 1.5-2.2 [facility] Comment on above: Performed By: #### L 100.0100, L500.4050, L500.4100, L501.5200 ####[facility] [address] [place], [place], [address] No Panel InformationOrdered By: Kendra Yuan on 10-11-2024 263 U/L High <38 [facility] Partial Thromboplast Timeon 10-11-2024 aPTT Coag (Bld) [Time] 72.6 s High 24.1-36.2 [facility] Comment on above: Performed By: #### L 300.4310 ####[facility] [address] [place], [place], [address] aPTT Coag (Bld) [Time] 64.6 s High 24.1-36.2 [facility] Comment on above: Performed By: #### L 300.1990 ####[facility] [address] [place], [place], [address] Screening total cholesterol/ high density lipoprotein (HDL) cholesterol ratioOrdered By: Kendra uYan on 10-11-2024 Screening total cholesterol/high density lipoprotein (HDL) cholesterol ratio 3.00 [facility] Serum globulin measurementOr dered By: Kendra Yuan on 10-11-2024 Serum globulin measurement 3.0 g/dL 2.2-4.2 [facility] Total proteinOrdered By: Suzie Yuan on 10-11-2024 Total protein 6.2 g/dL 5.9-8.4 [facility] Triglycerides measurementOrd ered By: Kendra Yuan on 10-11-2024 Triglycerides measurement 101 mg/dL <199 [facility] aPTT Coag (PPP) [Time]Ordere d By: Prateek Smith on 10-11-2024 Activated partial thromboplastin time (aPTT) in platelet poor plasma by coagulation a 72.6 Seconds High 24.1-36.2 [facility] 12 Lead EKGon 10-10-2024 12 Lead EKG Normal [facility] Abdomen/Pelvis W IV Cont ONL Yon 10-10-2024 Abdomen/Pelvis W IV Cont ONLY Normal [facility] Ammoniaon 10-10-2024 Ammonia (P) [Moles/Vol] 12.6 umol/L Low 16-60 [facility] Comment on above: Performed By: #### L 501.5200, M200.1000, L503.7505, L100.0100, L503.6005, L500.2500, L503.5510, L500.3400 ####[facility] [address] [place], [place], [id number] Arterial patency Wrist arter y --pre arterial punctureOrdered By: Ross Crmup on 10-10-2024 Assessment of wrist artery patency prior to arterial puncture Positive [facility] Bacteria LM.HPF (Urine sed) [#/Area]Ordered By: Ross Crump on 10-10-2024 Urine sediment bacteria count by microscopy (number/high power field) 2+ /hpf None Seen [facility] Base excess Calc (BldV) [Mol es/Vol]Ordered By: Ross Crump on 10-10-2024 Blood base excess determination -4 mmol/L Low -2-2 [facility] Venous blood base excess measurement 2 mmol/L -1.0-3.5 [facility] Basic Metabolic Profile (BMP )on 10-10-2024 BUN/CRE 18.4 RATIO Normal 10-20 [facility] Comment on above: Performed By: #### L 501.5200, M200.1000, L503.7505, L100.0100, L503.6005, L500.2500, L503.5510, L500.3400 ####[facility] [address] [place], [place], [id number] Calcium [Mass/Vol] 9.8 mg/dL Normal 7.6-11.0 [facility] Comment on above: Performed By: #### L 501.5200, M200.1000, L503.7505, L100.0100, L503.6005, L500.2500, L503.5510, L500.3400 ####[facility] [address] [place], [address] Chloride [Moles/Vol] 100 mmol/L Normal 98-108 [facility] Comment on above: Performed By: #### L 501.5200, M200.1000, L503.7505, L100.0100, L503.6005, L500.2500, L503.5510, L500.3400 ####[facility] [address] [place], [address] CO2 [Moles/Vol] 22.3 mmol/L Normal 21.0-32.0 [facility] Comment on above: Performed By: #### L 501.5200, M200.1000, L503.7505, L100.0100, L503.6005, L500.2500, L503.5510, L500.3400 ####[facility] [address] [place], [address] Creatinine [Mass/Vol] 1.39 mg/dL High 0.70-1.20 [facility] Comment on above: Performed By: #### L 501.5200, M200.1000, L503.7505, L100.0100, L503.6005, L500.2500, L503.5510, L500.3400 ####[facility] [address] [place], [address] ECRCL 48.87 ml/min Low 50-250 [facility] Comment on above: Performed By: #### L 501.5200, M200.1000, L503.7505, L100.0100, L503.6005, L500.2500, L503.5510, L500.3400 ####[facility] [address] [place], [address] GAP 18 High 5-15 [facility] Comment on above: Performed By: #### L 501.5200, M200.1000, L503.7505, L100.0100, L503.6005, L500.2500, L503.5510, L500.3400 ####[facility] [address] [place], [address] GFR/1.73 sq M.predicted among non-blacks MDRD (S/P/Bld) [Vol rate/Area] 56 mL/min/{1.73_m2} Low >60 [facility] Comment on above: Result Comment: mL/m in/1.73m2 CKD-EPI Creatinine Equation (2020) Performed By: #### L 501.5200, M200.1000, L503.7505, L100.0100, L503.6005, L500.2500, L503.5510, L500.3400 ####[facility] [address] [place], [address] Glucose [Mass/Vol] 80 mg/dL Normal 70-99 [facility] Comment on above: Performed By: #### L 501.5200, M200.1000, L503.7505, L100.0100, L503.6005, L500.2500, L503.5510, L500.3400 ####[facility] [address] [place], [address] Potassium [Moles/Vol] 4.3 mmol/L Normal 3.3-5.1 [facility] Comment on above: Performed By: #### L 501.5200, M200.1000, L503.7505, L100.0100, L503.6005, L500.2500, L503.5510, L500.3400 ####[facility] [address] [place], [address] Sodium [Moles/Vol] 141 mmol/L Normal 133-145 [facility] Comment on above: Performed By: #### L 501.5200, M200.1000, L503.7505, L100.0100, L503.6005, L500.2500, L503.5510, L500.3400 ####[facility] [address] [place], [address] Urea nitrogen [Mass/Vol] 26 mg/dL High 4-19 [facility] Comment on above: Performed By: #### L 501.5200, M200.1000, L503.7505, L100.0100, L503.6005, L500.2500, L503.5510, L500.3400 ####[facility] [address] [place], [address] Bedside Glucoseon 10-10-2024 FINGERSTICK GLU 174 mg/dL High 74-106 [facility] Comment on above: Result Comment: ORLY GEMENT OF PATIENT CARE PER NURSING PROTOCOL Performed By: #### L 501.080 ####[facility] [address] [place], [address] FINGERSTICK GLU 223 mg/dL High 74-106 [facility] Comment on above: Result Comment: ORLY GEMENT OF PATIENT CARE PER NURSING PROTOCOL Performed By: #### L 501.080 ####[facility] [address] [place], [address] Bilirubin.direct [Mass/Vol]O rdered By: Ross Crump on 10-10-2024 Bilirubin direct 0.22 mg/dL 0.00-0.30 [facility] Positive Normal [facility] Comment on above: Performed By: #### L 9000.0800 ####[facility] [address] [place], [address] Base excess Calc (Bld) [Moles/Vol] -4 mmol/L Low -2 to +2 [facility] Comment on above: Performed By: #### L 9000.0800 ####[facility] [address] [place], [address] Blood Gas Type ART Normal [facility] Comment on above: Performed By: #### L 9000.0800 ####[facility] [address] [place], [address] CO2 [Moles/Vol] 23 mmol/L Normal [facility] Comment on above: Performed By: #### L 9000.0800 ####[facility] [address] [place], [address] Comment AIRVO 55L 85% Normal [facility] Comment on above: Performed By: #### L 9000.0800 ####[facility] [address] [place], [address] FI02 85.0 Normal [facility] Comment on above: Performed By: #### L 9000.0800 ####[facility] [address] [place], [address] HCO3 (Bld) [Moles/Vol] 21.9 mmol/L Low 22-26 [facility] Comment on above: Performed By: #### L 9000.0800 ####[facility] [address] [place], [address] Mode Not entered Normal [facility] Comment on above: Performed By: #### L 9000.0800 ####[facility] [address] [place], [address] O2 Delivery Dev AIRVO Normal [facility] Comment on above: Performed By: #### L 9000.0800 ####[facility] [address] [place], [address] pCO2 43.9 mmHg Normal 35-45 [facility] Comment on above: Performed By: #### L 9000.0800 ####[facility] [address] [place], [address] pH (Bld) 7.31 [pH] Low 7.35-7.45 [facility] Comment on above: Performed By: #### L 9000.0800 ####[facility] [address] [place], [address] PO2 72 mmHG Low 75-100 [facility] Comment on above: Performed By: #### L 9000.0800 ####[facility] [address] [place], [address] SITE L Radial Normal [facility] Comment on above: Performed By: #### L 9000.0800 ####[facility] [address] [place], [address] SO2 92 Low 95-99 [facility] Comment on above: Performed By: #### L 9000.0800 ####[facility] [address] [place], [address] Blood bicarbonate measuremen tOrdered By: Ross Crump on 10-10-2024 Blood bicarbonate measurement 21.9 mmol/L Low 22-26 [facility] Blood cultureOrdered By: Andrzej Crump on 10-10-2024 Blood culture No growth in 5 days. [facility] Blood culture No growth in [address] [facility] CBC W/Diff, Automatedon 03-0 Absolute Lymph 0.71 X10 3/uL Low 0.83-4.51 [facility] Comment on above: Performed By: #### L 500.4050, L100.0100, L501.9520 ####[facility] [address] [place], [address] Absolute Neut 9.2 X10 3/uL High 2.0-7.7 [facility] [facility] Comment on above: Performed By: #### L 500.4050, L100.0100, L501.9520 ####[facility] [address] [place], [address] Basophils/100 WBC (Bld) 0.1 % Normal 0-1 [facility] Comment on above: Performed By: #### L 500.4050, L100.0100, L501.9520 ####[facility] [address] [place], [address] Eosinophils/100 WBC (Bld) 0.1 % Normal 0-5 [facility] Comment on above: Performed By: #### L 500.4050, L100.0100, L501.9520 ####[facility] [address] [place], [address] Erythrocyte distribution width (RBC) [Ratio] 14.6 % Normal 11.6-14.6 [facility] Comment on above: Performed By: #### L 500.4050, L100.0100, L501.9520 ####[facility] [address] [place], [address] Hematocrit (Bld) [Volume fraction] 32.7 % Low 40-54 [facility] Comment on above: Performed By: #### L 500.4050, L100.0100, L501.9520 ####[facility] [address] [place], [address] Hemoglobin (Bld) [Mass/Vol] 10.9 g/dL Low 13.0-16.5 [facility] Comment on above: Performed By: #### L 500.4050, L100.0100, L501.9520 ####[facility] [address] [place], [address] IG% 0.300 Normal 0.0-0.9 [facility] Comment on above: Result Comment: IG% - Immature Granulocytes (promyelocytes, myelocytes andmetamyelocytes) > 1% indicates that a LEFT SHIFT is Present. Performed By: #### L 500.4050, L100.0100, L501.9520 ####[facility] [address] [place], [address] Lymphocytes/100 WBC (Bld) 6.7 % Low 19-41 [facility] Comment on above: Performed By: #### L 500.4050, L100.0100, L501.9520 ####[facility] [address] [place], [address] MCH (RBC) [Entitic mass] 29.3 pg Normal 27.0-32.0 [facility] Comment on above: Performed By: #### L 500.4050, L100.0100, L501.9520 ####[facility] [address] [place], [address] MCHC (RBC) [Mass/Vol] 33.3 g/dL Normal 32-36 [facility] Comment on above: Performed By: #### L 500.4050, L100.0100, L501.9520 ####[facility] [address] [place], [address] MCV (RBC) [Entitic vol] 87.9 fL Normal 80-94 [facility] Comment on above: Performed By: #### L 500.4050, L100.0100, L501.9520 ####[facility] [address] [place], [address] Monocytes/100 WBC (Bld) 6.1 % Normal 0-10 [facility] Comment on above: Performed By: #### L 500.4050, L100.0100, L501.9520 ####[facility] [address] [place], [address] Neutrophils/100 WBC (Bld) 86.7 % High 47-70 [facility] Comment on above: Performed By: #### L 500.4050, L100.0100, L501.9520 ####[facility] [address] [place], [address] Nucleated RBC (Bld) [#/Vol] 0 10*3/uL Normal 0-5 [facility] Comment on above: Performed By: #### L 500.4050, L100.0100, L501.9520 ####[facility] [address] [place], [address] Platelet mean volume (Bld) [Entitic vol] 10.5 fL Normal 6.2-12.0 [facility] Comment on above: Performed By: #### L 500.4050, L100.0100, L501.9520 ####[facility] [address] [place], [address] Platelets (Bld) [#/Vol] 245 10*3/uL Normal 150-450 [facility] Comment on above: Performed By: #### L 500.4050, L100.0100, L501.9520 ####[facility] [address] [place], [address] RBC (Bld) [#/Vol] 3.72 10*6/uL Low 4.6-6.2 [facility] Comment on above: Performed By: #### L 500.4050, L100.0100, L501.9520 ####[facility] [address] [place], [address] RDW SD 46.8 fl High 35.1-43.9 [facility] Comment on above: Performed By: #### L 500.4050, L100.0100, L501.9520 ####[facility] [address] [place], [address] WBC (Bld) [#/Vol] 10.6 10*3/uL Normal 4.4-11.0 [facility] Comment on above: Performed By: #### L 500.4050, L100.0100, L501.9520 ####[facility] [address] [place], [address] Absolute Lymph 0.61 X10 3/uL Low 0.83-4.51 [facility] Comment on above: Performed By: #### L 501.5200, M200.1000, L503.7505, L100.0100, L503.6005, L500.2500, L503.5510, L500.3400 ####[facility] [address] [place], [address] Absolute Neut 9.9 X10 3/uL High 2.0-7.7 [facility] Comment on above: Performed By: #### L 501.5200, M200.1000, L503.7505, L100.0100, L503.6005, L500.2500, L503.5510, L500.3400 ####[facility] [address] [place], [address] Basophils/100 WBC (Bld) 0.2 % Normal 0-1 [facility] Comment on above: Performed By: #### L 501.5200, M200.1000, L503.7505, L100.0100, L503.6005, L500.2500, L503.5510, L500.3400 ####[facility] [address] [place], [address] Eosinophils/100 WBC (Bld) 0.2 % Normal 0-5 [facility] Comment on above: Performed By: #### L 501.5200, M200.1000, L503.7505, L100.0100, L503.6005, L500.2500, L503.5510, L500.3400 ####[facility] [address] [place], [address] Erythrocyte distribution width (RBC) [Ratio] 14.5 % Normal 11.6-14.6 [facility] Comment on above: Performed By: #### L 501.5200, M200.1000, L503.7505, L100.0100, L503.6005, L500.2500, L503.5510, L500.3400 ####[facility] [address] [place], [address] Hematocrit (Bld) [Volume fraction] 37.4 % Low 40-54 [facility] Comment on above: Performed By: #### L 501.5200, M200.1000, L503.7505, L100.0100, L503.6005, L500.2500, L503.5510, L500.3400 ####[facility] [address] [place], [address] Hemoglobin (Bld) [Mass/Vol] 12.4 g/dL Low 13.0-16.5 [facility] Comment on above: Performed By: #### L 501.5200, M200.1000, L503.7505, L100.0100, L503.6005, L500.2500, L503.5510, L500.3400 ####[facility] [address] [place], [address] IG% 0.400 Normal 0.0-0.9 [facility] Comment on above: Result Comment: IG% - Immature Granulocytes (promyelocytes, myelocytes andmetamyelocytes) > 1% indicates that a LEFT SHIFT is Present. Performed By: #### L 501.5200, M200.1000, L503.7505, L100.0100, L503.6005, L500.2500, L503.5510, L500.3400 ####[facility] [address] [place], [address] Lymphocytes/100 WBC (Bld) 5.4 % Low 19-41 [facility] Comment on above: Performed By: #### L 501.5200, M200.1000, L503.7505, L100.0100, L503.6005, L500.2500, L503.5510, L500.3400 ####[facility] [address] [place], [address] MCH (RBC) [Entitic mass] 29.2 pg Normal 27.0-32.0 [facility] Comment on above: Performed By: #### L 501.5200, M200.1000, L503.7505, L100.0100, L503.6005, L500.2500, L503.5510, L500.3400 ####[facility] [address] [place], [address] MCHC (RBC) [Mass/Vol] 33.2 g/dL Normal 32-36 [facility] Comment on above: Performed By: #### L 501.5200, M200.1000, L503.7505, L100.0100, L503.6005, L500.2500, L503.5510, L500.3400 ####[facility] [address] [place], [address] MCV (RBC) [Entitic vol] 88.0 fL Normal 80-[address] [facility] Comment on above: Performed By: #### L 501.5200, M200.1000, L503.7505, L100.0100, L503.6005, L500.2500, L503.5510, L500.3400 ####[facility] [address] [place], [address] Monocytes/100 WBC (Bld) 6.6 % Normal 0-[address] [facility] Comment on above: Performed By: #### L 501.5200, M200.1000, L503.7505, L100.0100, L503.6005, L500.2500, L503.5510, L500.3400 ####[facility] [address] [place], [address] Neutrophils/100 WBC (Bld) 87.2 % High 47-70 [facility] Comment on above: Performed By: #### L 501.5200, M200.1000, L503.7505, L100.0100, L503.6005, L500.2500, L503.5510, L500.3400 ####[facility] [address] [place], [address] Nucleated RBC (Bld) [#/Vol] 0 10*3/uL Normal 0-5 [facility] Comment on above: Performed By: #### L 501.5200, M200.1000, L503.7505, L100.0100, L503.6005, L500.2500, L503.5510, L500.3400 ####[facility] [address] [place], [address] Platelet mean volume (Bld) [Entitic vol] 10.0 fL Normal 6.2-12.0 [facility] Comment on above: Performed By: #### L 501.5200, M200.1000, L503.7505, L100.0100, L503.6005, L500.2500, L503.5510, L500.3400 ####[facility] [address] [place], [address] Platelets (Bld) [#/Vol] 259 10*3/uL Normal 150-450 [facility] Comment on above: Performed By: #### L 501.5200, M200.1000, L503.7505, L100.0100, L503.6005, L500.2500, L503.5510, L500.3400 ####[facility] [address] [place], [address] RBC (Bld) [#/Vol] 4.25 10*6/uL Low 4.6-6.2 [facility] Comment on above: Performed By: #### L 501.5200, M200.1000, L503.7505, L100.0100, L503.6005, L500.2500, L503.5510, L500.3400 ####[facility] [address] [place], [address] RDW SD 46.3 fl High 35.1-43.9 [facility] Comment on above: Performed By: #### L 501.5200, M200.1000, L503.7505, L100.0100, L503.6005, L500.2500, L503.5510, L500.3400 ####[facility] [address] [place], [address] WBC (Bld) [#/Vol] 11.3 10*3/uL High 4.4-11.0 [facility] Comment on above: Performed By: #### L 501.5200, M200.1000, L503.7505, L100.0100, L503.6005, L500.2500, L503.5510, L500.3400 ####[facility] [address] [facility] [place], [address] CO2 (BldV) [Moles/Vol]Ordere d By: Ross Crump on 10-10-2024 Venous blood total carbon dioxide measurement 28 mmol/L 23-33 [facility] CO2 (BldV) [Partial pressure ]Ordered By: Ross Crump on 10-10-2024 Venous blood partial pressure of carbon dioxide measurement 44.8 mmHg 41-51 [facility] CTA Chest W/WO Contraston CTA Chest W/WO Contrast Normal [facility] Chest 1 View (Portable)on Chest 1 View (Portable) Normal [facility] Clarity (U)Ordered By: Delroy Crump on 10-10-2024 Urine clarity Cloudy Clear [facility] Color (U)Ordered By: Ross Crump on 10-10-2024 Urine color determination Yellow Yellow [facility] Comprehensive Metabolic Prof ilon 10-10-2024 Albumin [Mass/Vol] 3.7 g/dL Normal 3.4-4.8 [facility] Comment on above: Order Comment: ANUM [place] PREVIOUS SPECIMEN REJECTED DUE TOHEMOLYSIS. 10/10/24 0711 Joselito Yuan. Performed By: #### L 501.9520, L500.4050 ####[facility] [address] [place], [address] Albumin/Globulin [Mass ratio] 1.1 {ratio} Normal 0.9-2.4 [facility] Comment on above: Order Comment: REDRA W. PREVIOUS SPECIMEN REJECTED DUE TOHEMOLYSIS. 10/10/24710 Joselito Yuan. Performed By: #### L 501.9520, L500.4050 ####[facility] [address] [place], [address] ALK PHOS 85 U/L Normal 40-129 [facility] Comment on above: Order Comment: REDRA W. PREVIOUS SPECIMEN REJECTED DUE TOHEMOLYSIS. 10/10/24710 Joselito Yuan. Performed By: #### L 501.9520, L500.4050 ####[facility] [address] [place], [address] ALT [Catalytic activity/Vol] 26 U/L Normal <=46 [facility] Comment on above: Order Comment: REDRA W. PREVIOUS SPECIMEN REJECTED DUE TOHEMOLYSIS. 10/10/24710 Joselito Yuan. Performed By: #### L 501.9520, L500.4050 ####[facility] [address] [place], [address] AST [Catalytic activity/Vol] 79 U/L High <=37 [facility] Comment on above: Order Comment: REDRA W. PREVIOUS SPECIMEN REJECTED DUE TOHEMOLYSIS. 10/10/24710 Joselito Yuan. Performed By: #### L 501.9520, L500.4050 ####[facility] [address] [place], [address] Bilirubin [Mass/Vol] 0.45 mg/dL Normal 0.00-1.30 [facility] Comment on above: Order Comment: REDRA W. PREVIOUS SPECIMEN REJECTED DUE TOHEMOLYSIS. 10/10/24710 Joselito Yuan. Performed By: #### L 501.9520, L500.4050 ####[facility] [address] [place], [address] BUN/CRE 19.6 RATIO Normal 10-20 [facility] Comment on above: Order Comment: REDRA W. PREVIOUS SPECIMEN REJECTED DUE TOHEMOLYSIS. 10/10/24710 Joselito Yuan. Performed By: #### L 501.9520, L500.4050 ####[facility] [address] [place], [address] Calcium [Mass/Vol] 8.8 mg/dL Normal 7.6-11.0 [facility] Comment on above: Order Comment: REDRA W. PREVIOUS SPECIMEN REJECTED DUE TOHEMOLYSIS. 10/10/24710 Joselito Yuan. Performed By: #### L 501.9520, L500.4050 ####[facility] [address] [place], [address] Chloride [Moles/Vol] 100 mmol/L Normal 98-108 [facility] Comment on above: Order Comment: REDRA W. PREVIOUS SPECIMEN REJECTED DUE TOHEMOLYSIS. 10/10/24710 Joselito Yuan. Performed By: #### L 501.9520, L500.4050 ####[facility] [address] [place], [address] CO2 [Moles/Vol] 21.5 mmol/L Normal 21.0-32.0 [facility] Comment on above: Order Comment: REDRA W. PREVIOUS SPECIMEN REJECTED DUE TOHEMOLYSIS. 10/10/24710 Joselito Yuan. Performed By: #### L 501.9520, L500.4050 ####[facility] [address] [place], [address] Creatinine [Mass/Vol] 1.33 mg/dL High 0.70-1.20 [facility] Comment on above: Order Comment: REDRA W. PREVIOUS SPECIMEN REJECTED DUE TOHEMOLYSIS. 10/10/24710 Joselito Yuan. Performed By: #### L 501.9520, L500.4050 ####[facility] [address] [place], [address] ECRCL 51.08 ml/min Normal 50-250 [facility] Comment on above: Order Comment: REDRA W. PREVIOUS SPECIMEN REJECTED DUE TOHEMOLYSIS. 10/10/24710 Joselito Yuan. Performed By: #### L 501.9520, L500.4050 ####[facility] [address] [place], [address] GAP 16 High 5-15 [facility] Comment on above: Order Comment: REDRA W. PREVIOUS SPECIMEN REJECTED DUE TOHEMOLYSIS. 10/10/24710 Joselito Yuan. Performed By: #### L 501.9520, L500.4050 ####[facility] [address] [place], [address] GFR/1.73 sq M.predicted among non-blacks MDRD (S/P/Bld) [Vol rate/Area] 59 mL/min/{1.73_m2} Low >60 [facility] Comment on above: Order Comment: REDRA W. PREVIOUS SPECIMEN REJECTED DUE TOHEMOLYSIS. 10/10/24710 Joselito Yuan. Result Comment: mL/m in/1.73m2 CKD-EPI Creatinine Equation (2020) Performed By: #### L 501.9520, L500.4050 ####[facility] [address] [place], [address] Globulin (S) [Mass/Vol] 3.4 g/dL Normal 2.2-4.2 [facility] Comment on above: Order Comment: REDRA W. PREVIOUS SPECIMEN REJECTED DUE TOHEMOLYSIS. 10/10/2411 Joselito Yuan. Performed By: #### L 501.9520, L500.4050 ####[facility] [address] [place], [address] Glucose [Mass/Vol] 188 mg/dL High 70-99 [facility] Comment on above: Order Comment: REDRA W. PREVIOUS SPECIMEN REJECTED DUE TOHEMOLYSIS. 10/10/24710 Joselito Yuan. Performed By: #### L 501.9520, L500.4050 ####[facility] [address] [place], [address] Potassium [Moles/Vol] 4.4 mmol/L Normal 3.3-5.1 [facility] Comment on above: Order Comment: REDRA W. PREVIOUS SPECIMEN REJECTED DUE TOHEMOLYSIS. 10/10/24710 Joselito Yuan. Performed By: #### L 501.9520, L500.4050 ####[facility] [address] [place], [address] Sodium [Moles/Vol] 138 mmol/L Normal 133-145 [facility] Comment on above: Order Comment: REDRA W. PREVIOUS SPECIMEN REJECTED DUE TOHEMOLYSIS. 10/10/24710 Joselito Yuan. Performed By: #### L 501.9520, L500.4050 ####[facility] [address] [place], [address] T PROT 7.1 g/dL Normal 5.9-8.4 [facility] Comment on above: Order Comment: REDRA W. PREVIOUS SPECIMEN REJECTED DUE TOHEMOLYSIS. 10/10/24710 Joselito Yuan. Performed By: #### L 501.9520, L500.4050 ####[facility] [address] [place], [address] Urea nitrogen [Mass/Vol] 26 mg/dL High 4-19 [facility] Comment on above: Order Comment: REDRA W. PREVIOUS SPECIMEN REJECTED DUE TOHEMOLYSIS. 10/10/24710 Joselito Yuan. Performed By: #### L 501.9520, L500.4050 ####[facility] [address] [place], [address] ALB Normal 3.4-4.8 [facility] Comment on above: Result Comment: This specimen has been REJECTED due to Laboratory criteria:Hemolyzed.TC (ICU) has been notified of need of recollection.10/10/24 0710 Joselito L White Performed By: #### L 500.4050, L100.0100, L501.9520 ####[facility] [address] [place], [address] ALK PHOS Normal 40-129 [facility] Comment on above: Result Comment: This specimen has been REJECTED due to Laboratory criteria:Hemolyzed.TC (ICU) has been notified of need of recollection.10/10/24 0710 Joselito L White Performed By: #### L 500.4050, L100.0100, L501.9520 ####[facility] [address] [place], [address] ALT Normal <=46 [facility] Comment on above: Result Comment: This specimen has been REJECTED due to Laboratory criteria:Hemolyzed.TC (ICU) has been notified of need of recollection.10/10/24 0710 Joselito L White Performed By: #### L 500.4050, L100.0100, L501.9520 ####[facility] [address] [place], [address] AST Normal <=37 [facility] Comment on above: Result Comment: This specimen has been REJECTED due to Laboratory criteria:Hemolyzed.TC (ICU) has been notified of need of recollection.10/10/24 0710 Joselito L White Performed By: #### L 500.4050, L100.0100, L501.9520 ####[facility] [address] [place], [address] BUN Normal 4-19 [facility] Comment on above: Result Comment: This specimen has been REJECTED due to Laboratory criteria:Hemolyzed.TC (ICU) has been notified of need of recollection.10/10/24 0710 Joselito L White Performed By: #### L 500.4050, L100.0100, L501.9520 ####[facility] [address] [place], [address] BUN/CRE Normal 10-20 [facility] Comment on above: Result Comment: This specimen has been REJECTED due to Laboratory criteria:Hemolyzed.TC (ICU) has been notified of need of recollection.10/10/24 0710 Joselito L White Performed By: #### L 500.4050, L100.0100, L501.9520 ####[facility] [address] [place], [address] Calcium Normal 7.6-11.0 [facility] Comment on above: Result Comment: This specimen has been REJECTED due to Laboratory criteria:Hemolyzed.TC (ICU) has been notified of need of recollection.10/10/24 0710 Joselito L White Performed By: #### L 500.4050, L100.0100, L501.9520 ####[facility] [address] [place], [address] CL Normal 98-108 [facility] Comment on above: Result Comment: This specimen has been REJECTED due to Laboratory criteria:Hemolyzed.TC (ICU) has been notified of need of recollection.10/10/24 0710 Joselito L White Performed By: #### L 500.4050, L100.0100, L501.9520 ####[facility] [address] [place], [address] CO2 Normal 21.0-32.0 [facility] Comment on above: Result Comment: This specimen has been REJECTED due to Laboratory criteria:Hemolyzed.TC (ICU) has been notified of need of recollection.10/10/24 0710 Joselito L White Performed By: #### L 500.4050, L100.0100, L501.9520 ####[facility] [address] [place], [address] CREAT,SERUM Normal 0.70-1.20 [facility] Comment on above: Result Comment: This specimen has been REJECTED due to Laboratory criteria:Hemolyzed.TC (ICU) has been notified of need of recollection.10/10/24 0710 Joselito L White Performed By: #### L 500.4050, L100.0100, L501.9520 ####[facility] [address] [place], [address] eGFR Normal >60 [facility] Comment on above: Result Comment: This specimen has been REJECTED due to Laboratory criteria:Hemolyzed.TC (ICU) has been notified of need of recollection.10/10/2410 Joselito L White Performed By: #### L 500.4050, L100.0100, L501.9520 ####[facility] [address] [place], [address] GAP Normal 5-15 [facility] Comment on above: Result Comment: This specimen has been REJECTED due to Laboratory criteria:Hemolyzed.TC (ICU) has been notified of need of recollection.10/10/2410 Joselito L White Performed By: #### L 500.4050, L100.0100, L501.9520 ####[facility] [address] [place], [address] GLU Normal 70-99 [facility] Comment on above: Result Comment: This specimen has been REJECTED due to Laboratory criteria:Hemolyzed.TC (ICU) has been notified of need of recollection.10/10/2410 Joselito L White Performed By: #### L 500.4050, L100.0100, L501.9520 ####[facility] [address] [place], [address] Potassium Normal 3.3-5.1 [facility] Comment on above: Result Comment: This specimen has been REJECTED due to Laboratory criteria:Hemolyzed.TC (ICU) has been notified of need of recollection.10/10/2410 Joselito L White Performed By: #### L 500.4050, L100.0100, L501.9520 ####[facility] [facility] [address] [place], [address] T BILI Normal 0.00-1.30 [facility] Comment on above: Result Comment: This specimen has been REJECTED due to Laboratory criteria:Hemolyzed.TC (ICU) has been notified of need of recollection.10/10/24 0710 Joselito L White Performed By: #### L 500.4050, L100.0100, L501.9520 ####[facility] [address] [place], [address] T PROT Normal 5.9-8.4 [facility] Comment on above: Result Comment: This specimen has been REJECTED due to Laboratory criteria:Hemolyzed.TC (ICU) has been notified of need of recollection.10/10/24 0710 Joselito L White Performed By: #### L 500.4050, L100.0100, L501.9520 ####[facility] [address] [place], [address] Comprehensive Metabolic Profil Normal 133-145 [facility] Comment on above: Result Comment: This specimen has been REJECTED due to Laboratory criteria:Hemolyzed.TC (ICU) has been notified of need of recollection.10/10/2410 Joselito L White Performed By: #### L 500.4050, L100.0100, L501.9520 ####[facility] [address] [place], [address] Consultation - Cardiologyon 10-10-2024 Consultation - Cardiology Normal [facility] Consultation - Intensiviston 10-10-2024 Consultation - Linen Room Supervisor Normal [facility] Determination of fraction of inspired oxygenOrdered By: Ross Crump on 10-10-2024 Determination of fraction of inspired oxygen 85.0 [facility] Echo Completeon 10-10-2024 Echo Complete Normal [facility] Echocardiogram study reportO rdered By: Prateek Smith on 10-10-2024 Study report [facility] Work Phone: Emergency Department Summary on 10-10-2024 Emergency Department Summary Normal [facility] H AND P Exam - Hospitaliston 10-10-2024 H&P Exam - Hospitalist Normal [facility] International normalized rat io (INR) calculationOrdered By: Ross Crump on 10-10-2024 International normalized ratio (INR) calculation 1.1 [facility] L499.0042on 10-10-2024 Trop T High Sen 407 ng/L Invalid Interpretation Code <=22 [facility] Comment on above: Result Comment: Crit ical Result(s) Called at:0401 by: Nilson Medina??Results read back by same. Performed By: #### L 499.0042 ####[facility] [address] [place], [place], [address] L499.0043on 10-10-2024 Trop T High Sen 477 ng/L Invalid Interpretation Code <=22 [facility] Comment on above: Result Comment: Crit ical Result(s) Called at 10/10/2024-08:10 by Joselito Amezquita Results read back by same. Performed By: #### L 499.0043 ####[facility] [address] [place], [address] L501.4021on 10-10-2024 Trop T High Sen 409 ng/L Invalid Interpretation Code <=22 [facility] Comment on above: Result Comment: Crit ical Result(s) Called at: 0238 by: NILSON SIEGEL??Results read back by same. Performed By: #### L 501.4021 ####[facility] [address] [place], [address] L503.7505on 10-10-2024 Natriuretic peptide B (Bld) [Mass/Vol] 2932 pg/mL High <=900 [facility] Comment on above: Result Comment: Hear t Failure Unlikely: < 300 pg/mLHeart Failure Likely< 50 Years: > 450 pg/mL50-75 Years: > 900 pg/mL>75 Years: > 1800 pg/mL Performed By: #### L 501.5200, M200.1000, L503.7505, L100.0100, L503.6005, L500.2500, L503.5510, L500.3400 ####[facility] [address] [place], [address] Lactic Acidon 10-10-2024 Lactate [Moles/Vol] 4.4 mmol/L Invalid Interpretation Code 0.0-2.0 [facility] Comment on above: Order Comment: Y Result Comment: Crit ical Result(s) Called at:0238 by: NILSON SIEGEL??Results read back by same. Performed By: #### L 501.5200, M200.1000, L503.7505, L100.0100, L503.6005, L500.2500, L503.5510, L500.3400 ####[facility] [address] [place], [address] Lactic acid measurementOrder ed By: Ross Crump on 10-10-2024 Lactic acid measurement 4.4 mmol/L High 0.0-2.0 [facility] Legionella Antigen Urineon 0 10-10-2024 LEGU Normal [facility] Comment on above: Performed By: #### M 300.4600, M300.4500 ####[facility] [address] [place], [address] Leukocyte esterase Test stri p Ql (U)Ordered By: Ross Crump on 10-10-2024 Urine leukocyte esterase detection by dipstick 500 /ul High Negative [facility] Liver Profileon 10-10-2024 Albumin [Mass/Vol] 4.1 g/dL Normal 3.4-4.8 [facility] Comment on above: Performed By: #### L 501.5200, M200.1000, L503.7505, L100.0100, L503.6005, L500.2500, L503.5510, L500.3400 ####[facility] [address] [place], [address] ALK PHOS 103 U/L Normal 40-129 [facility] Comment on above: Performed By: #### L 501.5200, M200.1000, L503.7505, L100.0100, L503.6005, L500.2500, L503.5510, L500.3400 ####[facility] [address] [place], [address] ALT [Catalytic activity/Vol] 27 U/L Normal <=46 [facility] Comment on above: Performed By: #### L 501.5200, M200.1000, L503.7505, L100.0100, L503.6005, L500.2500, L503.5510, L500.3400 ####[facility] [address] [place], [address] AST [Catalytic activity/Vol] 80 U/L High <=37 [facility] Comment on above: Performed By: #### L 501.5200, M200.1000, L503.7505, L100.0100, L503.6005, L500.2500, L503.5510, L500.3400 ####[facility] [address] [place], [address] Bilirubin [Mass/Vol] 0.48 mg/dL Normal 0.00-1.30 [facility] Comment on above: Performed By: #### L 501.5200, M200.1000, L503.7505, L100.0100, L503.6005, L500.2500, L503.5510, L500.3400 ####[facility] [address] [place], [address] Bilirubin.direct [Mass/Vol] 0.22 mg/dL Normal 0.00-0.30 [facility] Comment on above: Performed By: #### L 501.5200, M200.1000, L503.7505, L100.0100, L503.6005, L500.2500, L503.5510, L500.3400 ####[facility] [address] [place], [address] Globulin (S) [Mass/Vol] 3.9 g/dL Normal 2.2-4.[address] [facility] Comment on above: Performed By: #### L 501.5200, M200.1000, L503.7505, L100.0100, L503.6005, L500.2500, L503.5510, L500.3400 ####[facility] [address] [place], [address] T PROT 8.0 g/dL Normal 5.9-8.4 [facility] Comment on above: Performed By: #### L 501.5200, M200.1000, L503.7505, L100.0100, L503.6005, L500.2500, L503.5510, L500.3400 ####[facility] [address] [place], [address] M100.678on 10-10-2024 M100.678 SARS-CoV-2 (COVID 19 ) Negative INFLUENZA A Negative INFLUENZA B Negative RSV PCR Negative Normal [facility] Comment on above: Performed By: #### M 100.678 ####[facility] [address] [place], [address] Magnesiumon 10-10-2024 Magnesium [Mass/Vol] 1.6 mg/dL Normal 1.5-2.2 [facility] Comment on above: Performed By: #### L 501.5200, M200.1000, L503.7505, L100.0100, L503.6005, L500.2500, L503.5510, L500.3400 ####[facility] [address] [place], [place], [address] Microscopic analysis of urin e for red blood cells (RBC)Ordered By: Ross Crump on 10-10-2024 Microscopic analysis of urine for red blood cells (RBC) 0-5 SEEN /hpf 0-5 [facility] Nitrite Test strip Ql (U)Ord ered By: Ross Crump on 10-10-2024 Urine nitrite test by dipstick Positive High Negative [facility] No Panel InformationOrdered By: Ross Crump on 10-10-2024 ART [facility] L Radial [facility] Not entered [facility] AIRVO [facility] AIRVO 55L 85% [facility] 01:54:30 [facility] andes [facility] Yes [facility] 409 ng/L High <22 [facility] Oxygen (BldV) [Partial press ure]Ordered By: Ross Crump on 10-10-2024 Venous blood partial pressure of oxygen measurement 18 mmHg Low 25-40 [facility] Oxygen saturation measuremen tOrdered By: Ross Crump on 10-10-2024 Oxygen saturation measurement 92 % Low 95-99 [facility] Partial Thromboplast Timeon 10-10-2024 aPTT Coag (Bld) [Time] 98.3 s Invalid Interpretation Code 24.1-36.2 [facility] Comment on above: Result Comment: CRIT ICAL VALUE CALLED TO BLANCA ANDREW RN ICU10/10/24 1859 Etienne Coffey.RESULTS READ BACK BY SAME. Performed By: #### L 300.4310 ####[facility] [address] [place], [place], [address] aPTT Coag (Bld) [Time] 190.0 s Invalid Interpretation Code 24.1-36.2 [facility] Comment on above: Order Comment: CRITI FEDERICO VALUE CALLED TO MALLOUF87/06/25 1032 Juliana Morris.RESULTS READ BACK BY SAME. Performed By: #### L 3004310 ####[facility] [address] [place], [address] aPTT Coag (Bld) [Time] 58.1 s High 24.1-36.2 [facility] Comment on above: Performed By: #### L 300.3900, L300.4310 ####[facility] [address] [place], [address] Partial pressure of carbon d ioxide measurementOrdered By: Ross Crump on 10-10-2024 Partial pressure of carbon dioxide measurement 43.9 mmHg 35-45 [facility] Partial pressure of oxygen m easurementOrdered By: Ross Crump on 10-10-2024 Partial pressure of oxygen measurement 72 mmHG Low 75-100 [facility] Protein Test strip Ql (U)Ord ered By: Ross Crump on 10-10-2024 Urine protein assay by test strip, semi-quantitative 100 mg/dl High Negative [facility] Prothrombin Time w/INRon INR Coag (PPP) [Relative time] 1.1 {INR} Normal [facility] Comment on above: Performed By: #### L 300.3900, L300.4310 ####[facility] [address] [place], [address] PT Coag (PPP) [Time] 14.0 s Normal 11.7-14.9 [facility] Comment on above: Performed By: #### L 300.3900, L300.4310 ####[facility] [address] [place], [address] Prothrombin timeOrdered By: Ross Crump on 10-10-2024 Prothrombin time 14.0 SECONDS 11.7-14.9 [facility] RESPIRATORY PANEL MOLECULARo n 10-10-2024 RP PANEL Normal [facility] Comment on above: Performed By: #### M 100.638 ####[facility] [address] [place], [address] Specific gravity (U) [Rel de nsity]Ordered By: Ross Crump on 10-10-2024 Urine specific gravity measurement 1.015 1.002-1.030 [facility] Squamous epithelial cells de tection in urine sediment by light microscopyOrdered By: Ross Crump on 10-10-2024 Squamous epithelial cells detection in urine sediment by light microscopy 0 SEEN /hpf [facility] Strep pneumoniae Antig(UR,CS F)on 10-10-2024 STPAG Normal [facility] Comment on above: Performed By: #### M 300.4600, M300.4500 ####[facility] [address] [place], [address] TSH DL <= 0.005 mIU/L QnOrde red By: Matt Penny on 10-10-2024 Serum or plasma thyroid stimulating hormone (TSH) measurement by high sensitivity met 1.590 uIU/mL 0.300-4.200 [facility] Thyroid Stim Hormone (TSH)on 10-10-2024 TSH 1.590 uIU/mL Normal 0.300-4.200 [facility] Comment on above: Order Comment: ANUM [place] PREVIOUS SPECIMEN REJECTED DUE TOHEMOLYSIS. 10/10/24710 Joselito uYan. Performed By: #### L 501.9520, L500.4050 ####[facility] [address] [place], [address] TSH 2.030 uIU/mL Normal 0.300-4.200 [facility] Comment on above: Order Comment: This specimen has been REJECTED due to Laboratory criteria:Hemolyzed.TC (ICU) has been notified of need of recollection.10/10/2410 Joselito Yuan Result Comment: This specimen has been REJECTED due to Laboratory criteria:Hemolyzed.TC (ICU) has been notified of need of recollection.10/10/24709 Joselito Yuan Performed By: #### L 500.4050, L100.0100, L501.9520 ####[facility] [address] [place], [address] Total carbon dioxide measure mentOrdered By: Ross Crump on 10-10-2024 Total carbon dioxide measurement 23 mmol/L [facility] Troponin T.cardiac High sens itivity method [Mass/Vol]Ordered By: Kendra Yuan on 10-10-2024 Troponin T.cardiac [Mass/volume] in Serum or Plasma by High sensitivity method 477 ng/L High <22 [facility] Troponin T.cardiac High sens itivity method [Mass/Vol]Ordered By: Ross Crump on 10-10-2024 Troponin T.cardiac [Mass/volume] in Serum or Plasma by High sensitivity method 407 ng/L High <22 [facility] Urinalysis, Completeon 10-10 BACTERIA 2+ /hpf Normal None Seen [facility] Comment on above: Order Comment: JASWINDER TER SPECIMEN Performed By: #### M 100.2200, L400.0001 ####[facility] [address] [place], [address] RBC 0-5 SEEN Normal 0-5 [facility] Comment on above: Order Comment: JASWINDER TER SPECIMEN Performed By: #### M 100.2200, L400.0001 ####[facility] [address] [place], [address] WBC 25-50 SEEN Normal 0-5 [facility] Comment on above: Order Comment: JASWINDER TER SPECIMEN Performed By: #### M 100.2200, L400.0001 ####[facility] [address] [place], [address] EPI,SQUAMOUS 0 SEEN Normal 0-5 [facility] Comment on above: Order Comment: JASWINDER TER SPECIMEN Performed By: #### M 100.2200, L400.0001 ####[facility] [address] [place], [address] Mucus Ql (Urine sed) 0 SEEN Normal [facility] Comment on above: Order Comment: JASWINDER TER SPECIMEN Performed By: #### M 100.2200, L400.0001 ####[facility] [address] [place], [address] Urine blood detectionOrdered By: Ross Crump on 10-10-2024 Urine blood detection 150 /ul High Negative [facility] Urine cultureOrdered By: Andrzej Crump on 10-10-2024 Urine culture Klebsiella pneumonia e sp pneum Abnormal [facility] Urine culture Presumptive C albicans Abnormal [facility] Urine culture Escherichia coli Abnormal [facility] Urine glucose detectionOrder ed By: Ross Crump on 10-10-2024 Urine glucose detection Normal mg/dl Normal [facility] Urine total bilirubin detect ion by test stripOrdered By: Ross Crump on 10-10-2024 Urine total bilirubin detection by test strip Negative Negative [facility] Venous Blood Gason 5 Blood Gas Type MYLES Normal [facility] Comment on above: Performed By: #### L 9000.0810 ####[facility] [address] [place], [address] CO2 [Moles/Vol] 28 mmol/L Normal 23-33 [facility] Comment on above: Performed By: #### L 0.0810 ####[facility] [address] [place], [address] FI02 6.0 [facility] Comment on above: Performed By: #### L 9000.0810 ####[facility] [address] [place], [address] HCO3 (Bld) [Moles/Vol] 27 mmol/L High 22-26 [facility] Comment on above: Performed By: #### L 9000.0810 ####[facility] [address] [place], [address] O2 Delivery Dev Cannula Normal [facility] Comment on above: Performed By: #### L 9000.0810 ####[facility] [address] [place], [address] Read Back By Yes [facility] Comment on above: Performed By: #### L 9000.0810 ####[facility] [address] [place], [address] Results To andes Normal [facility] Comment on above: Performed By: #### L 9000.0810 ####[facility] [address] [place], [address] SITE Not entered Normal [facility] Comment on above: Performed By: #### L 9000.0810 ####[facility] [address] [place], [address] Time Given 01:54:30 Normal [facility] Comment on above: Performed By: #### L 9000.0810 ####[facility] [address] [place], [address] VBG BE 2 mmol/L Normal -1.0-3.5 [facility] Comment on above: Performed By: #### L 9000.0810 ####[facility] [address] [place], [address] VBG pCO2 44.8 mmHg Normal 41-51 [facility] Comment on above: Performed By: #### L 9000.0810 ####[facility] [address] [place], [address] VBG pH 7.39 Normal 7.32-7.42 [facility] Comment on above: Performed By: #### L 9000.0810 ####[facility] [address] [place], [address] VBG PO2 18 mmHg Invalid Interpretation Code 25-40 [facility] Comment on above: Performed By: #### L 9000.0810 ####[facility] [address] [place], [address] VBG SO2 25 Low 50-70 [facility] Comment on above: Performed By: #### L 9000.0810 ####[facility] [address] [place], [place], [address] Venous blood ammonia measure mentOrdered By: Ross Crump on 10-10-2024 Venous blood ammonia measurement 12.6 umol/L Low 16-60 [facility] Venous blood bicarbonate henna surementOrdered By: Ross Crump on 10-10-2024 Venous blood bicarbonate measurement 27 mmol/L High 22-26 [facility] Venous blood oxygen saturati on measurementOrdered By: Ross Crump on 10-10-2024 Venous blood oxygen saturation measurement 25 % Low 50-70 [facility] White blood cell countOrdere d By: Ross Crump on 10-10-2024 White blood cell count 25-50 SEEN /hpf 0-5 [facility] pH (BldV)Ordered By: Ross Crump on 10-10-2024 Venous blood pH measurement 7.39 7.32-7.42 [facility] pH (U)Ordered By: Albert on 10-10-2024 Urine pH 5.0 5.0 - 8.0 [facility] pH (Unsp spec)Ordered By: Marifer Crump on 10-10-2024 Measurement, pH 7.31 Low 7.35-7.45 [facility] CNPNon 09-13-2024 GILLIAN Telephone (UROLWS) ISAIAS VEGA ([id number]) 1955 M Date Time Provider Department 09/13/24 KENZIE DREW During your visit today, we recorded the following information about you: Bozena Faulkner LPN 09/13/2024 4:13 PM Signed Received order for that needs signed for change of catheter (SPT) from [facility]. Provided in Kenzie Drew CNP, DNP to sign on next clinic day. MAICOL Guardado Daniel, APRN.[facility] 09/16/2024 2:27 PM Signed Order signed - please fax back. Kenzie Drew APRN.ARTI, Bozena Le LPN 09/17/2024 10:38 AM Signed Faxed orders signed by Kenzie Miles APRN, [facility] to [facility]. Bozena Faulkner LPN Allergies As of Date: 09/13/2024 (No Known Allergies) Date Reviewed: 09/09/2024 Reviewed by: Kenzie Drew APRN.[facility] - Fully Assessed Reason for Visit: Orders [681] Prescriptions as of 09/17/2024 - diphenoxylate-atropine (LOMOTIL) 2.5-0.025 mg per tablet Take 1 tablet by mouth four times a day as needed for diarrhea (high ostomy output) for up to 30 days. - tamsulosin (FLOMAX) 0.4 mg Take 0.8 mg by mouth once daily. - clopidogrel (PLAVIX) 75 mg tablet Take 1 tablet by mouth once daily. - acetaminophen (TYLENOL) 325 mg tablet Take 2 tablets by mouth every 6 hours. - amLODIPine (NORVASC) 10 mg tablet Take 1 tablet by mouth once daily. - aspirin 81 mg chewable tablet Take 1 tablet by mouth once daily. - carvedilol (COREG) 12.5 mg tablet Take 1 tablet by mouth two times a day. - dextrose (TRUEPLUS) 15 gram/32 mL oral gel Take 32 mL by mouth as needed. - DULoxetine (CYMBALTA) 60 mg capsule Take 1 capsule by mouth daily at bedtime. - insulin glargine 100 unit/mL (3 mL) Inject 30 Units subcutaneously every morning. - insulin lispro 100 unit/mL injection Inject 3 Units subcutaneously with meals. - ipratropium-albuterol (DUONEB) 0.5 mg-3 mg(2.5 mg base)/3 mL nebu Inhale 3 mL as instructed every 6 hours as needed for wheezing/shortness of breath. - labetalol (NORMODYNE) 5 mg/mL injection Inject 1 mL intravenously every 4 hours as needed (SBP > 160 only if HR < 90). - lidocaine (SALONPAS) 4 % patch Apply 1 Patch as directed once daily. - melatonin 3 mg tablet Take 2 tablets by mouth one time only for 1 dose. - OLANZapine orally disintegrating (ZYPREXA ZYDIS) 5 mg disintegrating tablet Take 0.5 tablets by mouth every 8 hours as needed. - ondansetron, PF, (ZOFRAN) 4 mg/2 mL soln Inject 4 mg intravenously every 6 hours as needed. - pantoprazole DR (PROTONIX) 40 mg tablet Take 1 tablet by mouth daily at 6 am. - piperacillin-tazobacta m (ZOSYN) 3.375 gram/50 mL in dextrose (iso-osmotic) Inject 50 mL intravenously every 6 hours. Patient should start on January 01, 2024. - rosuvastatin (CRESTOR) 40 mg tablet Take 1 tablet by mouth daily at bedtime. - zinc oxide-cod liver oil (DESITIN 40%) 40 % paste Apply 1 application to affected area as needed. Problem List As Of Date 09/13/2024 Noted Resolved Diabetes mellitus type 2, uncontrolled ([facility]) [I*01/22/2013 HTN (hypertension) [I10] 01/22/2013 Hyperlipidemia [E78.5] 01/22/2013 Occlusion and stenosis of unspecified carotid a*05/11/2015 PAD (peripheral artery disease) ([facility]) [I73.9] 05/11/2015 Right lumbar radiculopathy [M54.16] 10/06/2015 Low back pain with right-sided sciatica [M54.41]10/06/2015 Pain in right hip [M25.551] 10/06/2015 Rectal cancer ([facility]) [C20] 07/23/2019 CAD (coronary artery disease) [I25.10] 05/26/2020 Stenosis of right carotid artery [I65.21] 05/26/2020 History of CVA in adulthood [Z86.73] 05/26/2020 Neuropathy [G62.9] 05/26/2020 GERD (gastroesophageal reflux disease) [K21.9] 05/26/2020 Anxiety and depression [F41.9, F32.A] 05/26/2020 Chronic renal insufficiency [N18.9] 05/26/2020 ALEJANDRO on CPAP [G47.33] 05/26/2020 Acute postoperative pain [G89.18] 05/26/[address] ([facility]) [Z93.3] 05/26/2020 prison (current) use of 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/anti*1 Small bowel obstruction ([facility]) [K56.609] 12/02/2023 12/04/2023 Severe protein-calorie malnutrition (HCC) [E43] 12/04/2023 Type 2 diabetes mellitus with hyperglycemia, wi*12/06/2023 S/P small bowel resection [Z90.49] 12/08/2023 Feeding difficulties [R63.30] 12/08/2023 On total parenteral nutrition (TPN) [Z78.9] 12/08/2023 Therapeutic drug monitoring [Z51.81] 12/08/2023 Severe protein-calorie malnutrition (Kim: les*12/08/2023 Insulin dose changed (HCC) [Z79.4] 12/09/2023 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 Normal [facility] CNOVon 09-09-2024 CNOV Office Visit (UROLMD ) ISAIAS VEGA ([id number]) 1955 M Date Time Provider Department 09/09/24 1:30 PM KENZIE DREW During your visit today, we recorded the following information about you: Kenzie Drew APRN.CLOUD DEVELOPER, DNP 09/09/2024 4:26 PM Signed [facility] MALE PATIENT - HISTORY AND PHYSICAL EXAMINATION PATIENT: Isaias Vega (68 year old) PCP: Kendy Modi MD CHIEF COMPLAINT: chronic urinary retention and had a recent suprapubic catheter placement by IR. HISTORY OF PRESENT ILLNESS: 68 year old year old male with chronic urinary retention and had a recent suprapubic catheter placement by IR. Past medical Hx: 2 CVA with left-sided hemiplegia, diabetes, long filler cigar roller machine anticoag - Eliquis, colorectal cancer, ileostomy for 3 years, LASHONDA, HTN, HLD, GERD, ALEJANDRO, RLS, MDD Urology hx: In [facility] in [place]. Had a stroke in 2008 and 2011. Using a walker since 2019, and in November had SBO that placed him in the hospital. Failed TOV x3. Was placed on Flomax which has not made a difference with TOV. Has chronic mackenzie in place. Now nonambulatory due to chronic medical conditions and recent hospitalization. Performing rehab. Seen by Dr. Barfield in May 2025 for urinary retention. UDS completed showing lack of mobility and small volume bladder, do not recommend WINTERS procedure, as he would likely develop worsening incontinence. Discussed chronic Mackenzie vs SPT. Do not recommend CIC given small volume bladder. SPT placed on 07/29/[address] Gonzalez. Today: Here for 1st change SPT exchange. Was in the hospital last week. Was not changed at that time. Patient Entered Questionnaires: PROMIS Global Health 12/10/2015 07/26/2020 09/08/2024 PROMIS Global Health Scale Physical Health Percentile 2 4 7 Mental Health Percentile 2 5 9 Percentiles provide an indication of how the patient's score ranks in relation to the general population. Higher percentile rankings indicate better function/quality of life. 50th percentile is the average of the general population and indicates half of respondents had a worse score. 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 PAST SURGICAL HISTORY Procedure Laterality Date ANGIOPLASTY CAROTID ARTERY CARISA PC Rt side CABG (5) VENOUS GRAFTS AND ARTERIAL GRAFT(S) 2008 CC CORONARY STENT 5/30/15 EXCISION TONSIL LESIONS BILATERAL HERNIA REPAIR HX PAST SURGICAL HISTORY OF 2009 [facility] PICC LINE INSERT/CONSULT 12/07/2023 REVSC OPN/PRG FEM/POP W/ANGIOPLASTY UNI Right 07-01-15 REVSC OPN/PRG FEM/POP W/ANGIOPLASTY [facility] 08-14-15 REVSC OPN/PRQ TIB/DIANNA W/ANGIOPLASTY UNI Right 07-01-15 REVSC OPN/PRQ TIB/DIANNA W/ANGIOPLASTY [facility] 08-14-15 Social History Tobacco Use Smoking status: Never Passive exposure: Never Smokeless tobacco: Never Vaping Use Vaping status: Never Used Substance Use Topics Alcohol use: No Drug use: No FAMILY HISTORY Problem Relation Age of Onset Diabetes Mother Cancer Mother 40 breast Coronary Artery Disease Father Hypertension Father Lipids Father Cancer Father 57 leukemia MEDICATIONS: Current Outpatient Medications Medication Sig diphenoxylate-atropine (LOMOTIL) 2.5-0.025 mg per tablet Take 1 tablet by mouth four times a day as needed for diarrhea (high ostomy output) for up to 30 days. tamsulosin (FLOMAX) 0.4 mg Take 0.8 mg by mouth once daily. clopidogrel (PLAVIX) 75 mg tablet Take 1 tablet by mouth once daily. acetaminophen (TYLENOL) 325 mg tablet Take 2 tablets by mouth every 6 hours. amLODIPine (NORVASC) 10 mg tablet Take 1 tablet by mouth once daily. aspirin 81 mg chewable tablet Take 1 tablet by mouth once daily. carvedilol (COREG) 12.5 mg tablet Take 1 tablet by mouth two times a day. dextrose (TRUEPLUS) 15 gram/32 mL oral gel Take 32 mL by mouth as needed. DULoxetine (CYMBALTA) 60 mg capsule Take 1 capsule by mouth daily at bedtime. insulin glargine 100 unit/mL (3 mL) Inject 30 Units subcutaneously every morning. insulin lispro 100 unit/mL injection Inject 3 Units subcutaneously with meals. ipratropium-albuterol (DUONEB) 0.5 mg-3 mg(2.5 mg base)/3 mL nebu Inhale 3 mL as instructed every 6 hours as needed for wheezing/shortness of breath. (Patient not taking: Reported on 06/04/2024) labetalol (NORMODYNE) 5 mg/mL injection Inject 1 mL intravenously every 4 hours as needed (SBP > 160 only if HR < 90). (Patient not taking: Reported on 06/04/2024) lidocaine (SALONPAS) 4 % patch Apply 1 Patch as directed once daily. melatonin 3 mg tablet Take 2 tablets by mouth one time only for 1 dose. OLANZapine orally disintegrating ( (more content not included)... Normal [facility] CNPNon 09-09-2024 CNPN Telephone (HCSIND) ISAIAS VEGA ([id number]) 1955 M Date Time Provider Department 09/09/24 EDGARDO HURTADO HCSIND During your visit today, we recorded the following information about you: Edgardo Hurtado PSS 09/09/2024 2:30 PM Signed Thank you for the referral of your patient to [facility]. At this time, we are at capacity and are unable to accept your patient. In order to help your patient receive quality home care, we have included reputable agencies that service this area: [facility] [phone] or [facility] [phone]. Please contact this agency and they will work with your patient to arrange timely services. Thank you, TOSIN Eckert 09/09/2024 2:29 PM Dionne Clinton, RN 09/10/2024 10:26 AM Signed Called and left message that [facility]. Sent Orders, OV notes, and Demographics to [facility] at [phone], and [facility] fax# [phone], both fax confirmations received. I called and advised I faxed orders to both agencies. Advised to call if neither agency reaches out. Allergies As of Date: 09/09/2024 (No Known Allergies) Date Reviewed: 09/09/2024 Reviewed by: Kenzie Drew APRN.ARTI, LORRIE - Fully Assessed Reason for Visit: Home Care [4073] Prescriptions as of 09/10/2024 - diphenoxylate-atropine (LOMOTIL) 2.5-0.025 mg per tablet Take 1 tablet by mouth four times a day as needed for diarrhea (high ostomy output) for up to 30 days. - tamsulosin (FLOMAX) 0.4 mg Take 0.8 mg by mouth once daily. - clopidogrel (PLAVIX) 75 mg tablet Take 1 tablet by mouth once daily. - acetaminophen (TYLENOL) 325 mg tablet Take 2 tablets by mouth every 6 hours. - amLODIPine (NORVASC) 10 mg tablet Take 1 tablet by mouth once daily. - aspirin 81 mg chewable tablet Take 1 tablet by mouth once daily. - carvedilol (COREG) 12.5 mg tablet Take 1 tablet by mouth two times a day. - dextrose (TRUEPLUS) 15 gram/32 mL oral gel Take 32 mL by mouth as needed. - DULoxetine (CYMBALTA) 60 mg capsule Take 1 capsule by mouth daily at bedtime. - insulin glargine 100 unit/mL (3 mL) Inject 30 Units subcutaneously every morning. - insulin lispro 100 unit/mL injection Inject 3 Units subcutaneously with meals. - ipratropium-albuterol (DUONEB) 0.5 mg-3 mg(2.5 mg base)/3 mL nebu Inhale 3 mL as instructed every 6 hours as needed for wheezing/shortness of breath. - labetalol (NORMODYNE) 5 mg/mL injection Inject 1 mL intravenously every 4 hours as needed (SBP > 160 only if HR < 90). - lidocaine (SALONPAS) 4 % patch Apply 1 Patch as directed once daily. - melatonin 3 mg tablet Take 2 tablets by mouth one time only for 1 dose. - OLANZapine orally disintegrating (ZYPREXA ZYDIS) 5 mg disintegrating tablet Take 0.5 tablets by mouth every 8 hours as needed. - ondansetron, PF, (ZOFRAN) 4 mg/2 mL soln Inject 4 mg intravenously every 6 hours as needed. - pantoprazole DR (PROTONIX) 40 mg tablet Take 1 tablet by mouth daily at 6 am. - piperacillin-tazobacta m (ZOSYN) 3.375 gram/50 mL in dextrose (iso-osmotic) Inject 50 mL intravenously every 6 hours. Patient should start on January 01, 2024. - rosuvastatin (CRESTOR) 40 mg tablet Take 1 tablet by mouth daily at bedtime. - zinc oxide-cod liver oil (DESITIN 40%) 40 % paste Apply 1 application to affected area as needed. Problem List As Of Date 09/09/2024 Noted Resolved Diabetes mellitus type 2, uncontrolled (HCC) [I*01/22/2013 HTN (hypertension) [I10] 01/22/2013 Hyperlipidemia [E78.5] 01/22/2013 Occlusion and stenosis of unspecified carotid a*05/11/2015 PAD (peripheral artery disease) ([facility]) [I73.9] 05/11/2015 Right lumbar radiculopathy [M54.16] 10/06/2015 Low back pain with right-sided sciatica [M54.41]10/06/2015 Pain in right hip [M25.551] 10/06/2015 Rectal cancer ([facility]) [C20] 07/23/2019 CAD (coronary artery disease) [I25.10] 05/26/2020 Stenosis of right carotid artery [I65.21] 05/26/2020 History of CVA in adulthood [Z86.73] 05/26/2020 Neuropathy [G62.9] 05/26/2020 GERD (gastroesophageal reflux disease) [K21.9] 05/26/2020 Anxiety and depression [F41.9, F32.A] 05/26/2020 Chronic renal insufficiency [N18.9] 05/26/2020 ALEJANDRO on CPAP [G47.33] 05/26/2020 Acute postoperative pain [G89.18] 05/26/[address] ([facility]) [Z93.3] 05/26/2020 prison (current) use of 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/anti*1 Small bowel obstruction (HCC) [K56.609] 12/02/2023 12/04/2023 Severe protein-calorie malnutrition (HCC) [E43] 12/04/2023 Type 2 diabetes mellitus with hyperglycemia, wi*12/06/2023 S/P small bowel resection [Z90.49] 12/08/2023 Feeding difficulties [R63.30] 12/08/2023 On total parenteral nutrition (TPN) [Z78.9] 12/08/2023 Therapeutic drug monitoring [Z51.81] 12/08/2023 Severe protein-calorie malnutrition (Kim: les*12/08/2023 Insulin dose changed (HCC) [Z79.4] 12/09/2023 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 Normal [facility] Basic Metabolic Profile (BMP )on 09-03-2024 BUN Normal 7-18 [facility] Comment on above: Result Comment: Canc elled via OM: Order cancelled - Patient discharged Performed By: #### L 500.2500, L100.0100 ####[facility] [address] [place], [address] BUN/CRE Normal 10-20 [facility] Comment on above: Result Comment: Canc elled via OM: Order cancelled - Patient discharged Performed By: #### L 500.2500, L100.0100 ####[facility] [address] [place], [address] CA,Total Normal 8.5-10.1 [facility] Comment on above: Result Comment: Canc elled via OM: Order cancelled - Patient discharged Performed By: #### L 500.2500, L100.0100 ####[facility] [address] [place], [address] CL Normal 98-107 [facility] Comment on above: Result Comment: Canc elled via OM: Order cancelled - Patient discharged Performed By: #### L 500.2500, L100.0100 ####[facility] [address] [place], [address] CO2 Normal 21.0-32.0 [facility] Comment on above: Result Comment: Canc elled via OM: Order cancelled - Patient discharged Performed By: #### L 500.2500, L100.0100 ####[facility] [address] [place], [address] CREAT,SERUM Normal 0.70-1.30 [facility] Comment on above: Result Comment: Canc elled via OM: Order cancelled - Patient discharged Performed By: #### L 500.2500, L100.0100 ####[facility] [address] [place], [address] EST GFR Normal >60 [facility] Comment on above: Result Comment: Canc elled via OM: Order cancelled - Patient discharged Performed By: #### L 500.2500, L100.0100 ####[facility] [address] [place], [address] EST GFR - AA Normal >60 [facility] Comment on above: Result Comment: Canc elled via OM: Order cancelled - Patient discharged Performed By: #### L 500.2500, L100.0100 ####[facility] [address] [place], [address] GAP Normal 5-15 [facility] Comment on above: Result Comment: Canc elled via OM: Order cancelled - Patient discharged Performed By: #### L 500.2500, L100.0100 ####[facility] [address] [place], [address] GLU Normal 74-106 [facility] Comment on above: Result Comment: Canc elled via OM: Order cancelled - Patient discharged Performed By: #### L 500.2500, L100.0100 ####[facility] [address] [place], [address] Potassium Normal 3.5-5.1 [facility] Comment on above: Result Comment: Canc elled via OM: Order cancelled - Patient discharged Performed By: #### L 500.2500, L100.0100 ####[facility] [address] [place], [address] Basic Metabolic Profile (BMP) Normal 136-145 [facility] Comment on above: Result Comment: Canc elled via OM: Order cancelled - Patient discharged Performed By: #### L 500.2500, L100.0100 ####[facility] [address] [place], [address] CBC W/Diff, Automatedon 08-08 Absolute Neut Normal 2.0-7.7 [facility] Comment on above: Result Comment: Canc elled via OM: Order cancelled - Patient discharged Performed By: #### L 500.2500, L100.0100 ####[facility] [address] [place], [address] HCT Normal 40-54 [facility] Comment on above: Result Comment: Canc elled via OM: Order cancelled - Patient discharged Performed By: #### L 500.2500, L100.0100 ####[facility] [address] [place], [address] HGB Normal 13.0-16.5 [facility] Comment on above: Result Comment: Canc elled via OM: Order cancelled - Patient discharged Performed By: #### L 500.2500, L100.0100 ####[facility] [address] [place], [address] MCH Normal 27.0-32.0 [facility] Comment on above: Result Comment: Canc elled via OM: Order cancelled - Patient discharged Performed By: #### L 500.2500, L100.0100 ####[facility] [address] [place], [address] MCHC Normal 32-36 [facility] Comment on above: Result Comment: Canc elled via OM: Order cancelled - Patient discharged Performed By: #### L 500.2500, L100.0100 ####[facility] [address] [place], [address] MCV Normal 80-94 [facility] Comment on above: Result Comment: Canc elled via OM: Order cancelled - Patient discharged Performed By: #### L 500.2500, L100.0100 ####[facility] [address] [place], [address] NEUT% Normal 47-70 [facility] Comment on above: Result Comment: Canc elled via OM: Order cancelled - Patient discharged Performed By: #### L 500.2500, L100.0100 ####[facility] [address] [place], [address] PLT Normal 150-450 [facility] Comment on above: Result Comment: Canc elled via OM: Order cancelled - Patient discharged Performed By: #### L 500.2500, L100.0100 ####[facility] [address] [place], [address] RBC Normal 4.6-6.2 [facility] Comment on above: Result Comment: Canc elled via OM: Order cancelled - Patient discharged Performed By: #### L 500.2500, L100.0100 ####[facility] [address] [place], [address] RDW CV Normal 11.6-14.6 [facility] Comment on above: Result Comment: Canc elled via OM: Order cancelled - Patient discharged Performed By: #### L 500.2500, L100.0100 ####[facility] [address] [place], [address] RDW SD Normal 35.1-43.9 [facility] Comment on above: Result Comment: Canc elled via OM: Order cancelled - Patient discharged Performed By: #### L 500.2500, L100.0100 ####[facility] [address] [place], [address] WBC Normal 4.4-11.0 [facility] Comment on above: Result Comment: Canc elled via OM: Order cancelled - Patient discharged Performed By: #### L 500.2500, L100.0100 ####[facility] [address] [place], [address] Basic Metabolic Profile (BMP )on 09-02-2024 BUN Normal 7-18 [facility] Comment on above: Result Comment: Canc elled via OM: Order cancelled - Patient discharged Performed By: #### L 100.0100, L500.2500 ####[facility] [address] [place], [address] BUN/CRE Normal 10-20 [facility] Comment on above: Result Comment: Canc elled via OM: Order cancelled - Patient discharged Performed By: #### L 100.0100, L500.2500 ####[facility] [address] [place], [address] CA,Total Normal 8.5-10.1 [facility] Comment on above: Result Comment: Canc elled via OM: Order cancelled - Patient discharged Performed By: #### L 100.0100, L500.2500 ####[facility] [address] [place], [address] CL Normal 98-107 [facility] Comment on above: Result Comment: Canc elled via OM: Order cancelled - Patient discharged Performed By: #### L 100.0100, L500.2500 ####[facility] [address] [place], [address] CO2 Normal 21.0-32.0 [facility] Comment on above: Result Comment: Canc elled via OM: Order cancelled - Patient discharged Performed By: #### L 100.0100, L500.2500 ####[facility] [address] [place], [address] CREAT,SERUM Normal 0.70-1.30 [facility] Comment on above: Result Comment: Canc elled via OM: Order cancelled - Patient discharged Performed By: #### L 100.0100, L500.2500 ####[facility] [address] [place], [address] EST GFR Normal >60 [facility] Comment on above: Result Comment: Canc elled via OM: Order cancelled - Patient discharged Performed By: #### L 100.0100, L500.2500 ####[facility] [address] [place], [address] EST GFR - AA Normal >60 [facility] Comment on above: Result Comment: Canc elled via OM: Order cancelled - Patient discharged Performed By: #### L 100.0100, L500.2500 ####[facility] [address] [place], [address] GAP Normal 5-15 [facility] Comment on above: Result Comment: Canc elled via OM: Order cancelled - Patient discharged Performed By: #### L 100.0100, L500.2500 ####[facility] [address] [place], [address] GLU Normal 74-106 [facility] Comment on above: Result Comment: Canc elled via OM: Order cancelled - Patient discharged Performed By: #### L 100.0100, L500.2500 ####[facility] [address] [place], [address] Potassium Normal 3.5-5.1 [facility] Comment on above: Result Comment: Canc elled via OM: Order cancelled - Patient discharged Performed By: #### L 100.0100, L500.2500 ####[facility] [address] [place], [address] Basic Metabolic Profile (BMP) Normal 136-145 [facility] Comment on above: Result Comment: Canc elled via OM: Order cancelled - Patient discharged Performed By: #### L 100.0100, L500.2500 ####[facility] [address] [place], [address] CBC W/Diff, Automatedon 01-2 Absolute Neut Normal 2.0-7.7 [facility] Comment on above: Result Comment: Canc elled via OM: Order cancelled - Patient discharged Performed By: #### L 100.0100, L500.2500 ####[facility] [address] [place], [address] HCT Normal 40-54 [facility] Comment on above: Result Comment: Canc elled via OM: Order cancelled - Patient discharged Performed By: #### L 100.0100, L500.2500 ####[facility] [address] [place], [address] HGB Normal 13.0-16.5 [facility] Comment on above: Result Comment: Canc elled via OM: Order cancelled - Patient discharged Performed By: #### L 100.0100, L500.2500 ####[facility] [address] [place], [address] MCH Normal 27.0-32.0 [facility] Comment on above: Result Comment: Canc elled via OM: Order cancelled - Patient discharged Performed By: #### L 100.0100, L500.2500 ####[facility] [address] [place], [address] MCHC Normal 32-36 [facility] Comment on above: Result Comment: Canc elled via OM: Order cancelled - Patient discharged Performed By: #### L 100.0100, L500.2500 ####[facility] [address] [place], [address] MCV Normal 80-94 [facility] Comment on above: Result Comment: Canc elled via OM: Order cancelled - Patient discharged Performed By: #### L 100.0100, L500.2500 ####[facility] [address] [place], [address] NEUT% Normal 47-70 [facility] Comment on above: Result Comment: Canc elled via OM: Order cancelled - Patient discharged Performed By: #### L 100.0100, L500.2500 ####[facility] [address] [place], [address] PLT Normal 150-450 [facility] Comment on above: Result Comment: Canc elled via OM: Order cancelled - Patient discharged Performed By: #### L 100.0100, L500.2500 ####[facility] [address] [place], [address] RBC Normal 4.6-6.2 [facility] Comment on above: Result Comment: Canc elled via OM: Order cancelled - Patient discharged Performed By: #### L 100.0100, L500.2500 ####[facility] [address] [place], [address] RDW CV Normal 11.6-14.6 [facility] Comment on above: Result Comment: Canc elled via OM: Order cancelled - Patient discharged Performed By: #### L 100.0100, L500.2500 ####[facility] [address] [place], [address] RDW SD Normal 35.1-43.9 [facility] Comment on above: Result Comment: Canc elled via OM: Order cancelled - Patient discharged Performed By: #### L 100.0100, L500.2500 ####[facility] [address] [place], [address] WBC Normal 4.4-11.0 [facility] Comment on above: Result Comment: Canc elled via OM: Order cancelled - Patient discharged Performed By: #### L 100.0100, L500.2500 ####[facility] [address] [place], [address] Basic Metabolic Profile (BMP )on 09-01-2024 BUN Normal 7-18 [facility] Comment on above: Result Comment: Canc elled via OM: Order cancelled - Patient discharged Performed By: #### L 500.2500, L100.0100 ####[facility] [address] [place], [address] BUN/CRE Normal 10-20 [facility] Comment on above: Result Comment: Canc elled via OM: Order cancelled - Patient discharged Performed By: #### L 500.2500, L100.0100 ####[facility] [address] [place], [address] CA,Total Normal 8.5-10.1 [facility] Comment on above: Result Comment: Canc elled via OM: Order cancelled - Patient discharged Performed By: #### L 500.2500, L100.0100 ####[facility] [address] [place], [address] CL Normal 98-107 [facility] Comment on above: Result Comment: Canc elled via OM: Order cancelled - Patient discharged Performed By: #### L 500.2500, L100.0100 ####[facility] [address] [place], [address] CO2 Normal 21.0-32.0 [facility] Comment on above: Result Comment: Canc elled via OM: Order cancelled - Patient discharged Performed By: #### L 500.2500, L100.0100 ####[facility] [address] [place], [address] CREAT,SERUM Normal 0.70-1.30 [facility] Comment on above: Result Comment: Canc elled via OM: Order cancelled - Patient discharged Performed By: #### L 500.2500, L100.0100 ####[facility] [address] [place], [address] EST GFR Normal >60 [facility] Comment on above: Result Comment: Canc elled via OM: Order cancelled - Patient discharged Performed By: #### L 500.2500, L100.0100 ####[facility] [address] [place], [address] EST GFR - AA Normal >60 [facility] Comment on above: Result Comment: Canc elled via OM: Order cancelled - Patient discharged Performed By: #### L 500.2500, L100.0100 ####[facility] [address] [place], [address] GAP Normal 5-15 [facility] Comment on above: Result Comment: Canc elled via OM: Order cancelled - Patient discharged Performed By: #### L 500.2500, L100.0100 ####[facility] [address] [place], [address] GLU Normal 74-106 [facility] Comment on above: Result Comment: Canc elled via OM: Order cancelled - Patient discharged Performed By: #### L 500.2500, L100.0100 ####[facility] [address] [place], [address] Potassium Normal 3.5-5.1 [facility] Comment on above: Result Comment: Canc elled via OM: Order cancelled - Patient discharged Performed By: #### L 500.2500, L100.0100 ####[facility] [address] [place], [address] Basic Metabolic Profile (BMP) Normal 136-145 [facility] Comment on above: Result Comment: Canc elled via OM: Order cancelled - Patient discharged Performed By: #### L 500.2500, L100.0100 ####[facility] [address] [place], [address] CBC W/Diff, Automatedon 08-08 Absolute Neut Normal 2.0-7.7 [facility] Comment on above: Result Comment: Canc elled via OM: Order cancelled - Patient discharged Performed By: #### L 500.2500, L100.0100 ####[facility] [address] [place], [address] HCT Normal 40-54 [facility] Comment on above: Result Comment: Canc elled via OM: Order cancelled - Patient discharged Performed By: #### L 500.2500, L100.0100 ####[facility] [address] [place], [address] HGB Normal 13.0-16.5 [facility] Comment on above: Result Comment: Canc elled via OM: Order cancelled - Patient discharged Performed By: #### L 500.2500, L100.0100 ####[facility] [address] [place], [address] MCH Normal 27.0-32.0 [facility] Comment on above: Result Comment: Canc elled via OM: Order cancelled - Patient discharged Performed By: #### L 500.2500, L100.0100 ####[facility] [address] [place], [address] MCHC Normal 32-36 [facility] Comment on above: Result Comment: Canc elled via OM: Order cancelled - Patient discharged Performed By: #### L 500.2500, L100.0100 ####[facility] [address] [place], [address] MCV Normal 80-94 [facility] Comment on above: Result Comment: Canc elled via OM: Order cancelled - Patient discharged Performed By: #### L 500.2500, L100.0100 ####[facility] [address] [place], [address] NEUT% Normal 47-70 [facility] Comment on above: Result Comment: Canc elled via OM: Order cancelled - Patient discharged Performed By: #### L 500.2500, L100.0100 ####[facility] [address] [place], [address] PLT Normal 150-450 [facility] Comment on above: Result Comment: Canc elled via OM: Order cancelled - Patient discharged Performed By: #### L 500.2500, L100.0100 ####[facility] [address] [place], [address] RBC Normal 4.6-6.2 [facility] Comment on above: Result Comment: Canc elled via OM: Order cancelled - Patient discharged Performed By: #### L 500.2500, L100.0100 ####[facility] [address] [place], [address] RDW CV Normal 11.6-14.6 [facility] Comment on above: Result Comment: Canc elled via OM: Order cancelled - Patient discharged Performed By: #### L 500.2500, L100.0100 ####[facility] [address] [place], [address] RDW SD Normal 35.1-43.9 [facility] Comment on above: Result Comment: Canc elled via OM: Order cancelled - Patient discharged Performed By: #### L 500.2500, L100.0100 ####[facility] [address] [place], [address] WBC Normal 4.4-11.0 [facility] Comment on above: Result Comment: Canc elled via OM: Order cancelled - Patient discharged Performed By: #### L 500.2500, L100.0100 ####[facility] [address] [place], [address] Basic Metabolic Profile (BMP )on 08-31-2024 BUN Normal 7-18 [facility] Comment on above: Result Comment: Canc elled via OM: Order cancelled - Patient discharged Performed By: #### L 100.0100, L500.2500 ####[facility] [address] [place], [address] BUN/CRE Normal 10-20 [facility] Comment on above: Result Comment: Canc elled via OM: Order cancelled - Patient discharged Performed By: #### L 100.0100, L500.2500 ####[facility] [address] [place], [address] CA,Total Normal 8.5-10.1 [facility] Comment on above: Result Comment: Canc elled via OM: Order cancelled - Patient discharged Performed By: #### L 100.0100, L500.2500 ####[facility] [address] [place], [address] CL Normal 98-107 [facility] Comment on above: Result Comment: Canc elled via OM: Order cancelled - Patient discharged Performed By: #### L 100.0100, L500.2500 ####[facility] [address] [place], [address] CO2 Normal 21.0-32.0 [facility] Comment on above: Result Comment: Canc elled via OM: Order cancelled - Patient discharged Performed By: #### L 100.0100, L500.2500 ####[facility] [address] [place], [address] CREAT,SERUM Normal 0.70-1.30 [facility] Comment on above: Result Comment: Canc elled via OM: Order cancelled - Patient discharged Performed By: #### L 100.0100, L500.2500 ####[facility] [address] [place], [address] EST GFR Normal >60 [facility] Comment on above: Result Comment: Canc elled via OM: Order cancelled - Patient discharged Performed By: #### L 100.0100, L500.2500 ####[facility] [address] [place], [address] EST GFR - AA Normal >60 [facility] Comment on above: Result Comment: Canc elled via OM: Order cancelled - Patient discharged Performed By: #### L 100.0100, L500.2500 ####[facility] [address] [place], [address] GAP Normal 5-15 [facility] Comment on above: Result Comment: Canc elled via OM: Order cancelled - Patient discharged Performed By: #### L 100.0100, L500.2500 ####[facility] [address] [place], [address] GLU Normal 74-106 [facility] Comment on above: Result Comment: Canc elled via OM: Order cancelled - Patient discharged Performed By: #### L 100.0100, L500.2500 ####[facility] [address] [place], [address] Potassium Normal 3.5-5.1 [facility] Comment on above: Result Comment: Canc elled via OM: Order cancelled - Patient discharged Performed By: #### L 100.0100, L500.2500 ####[facility] [address] [place], [address] Basic Metabolic Profile (BMP) Normal 136-145 [facility] Comment on above: Result Comment: Canc elled via OM: Order cancelled - Patient discharged Performed By: #### L 100.0100, L500.2500 ####[facility] [address] [place], [address] CBC W/Diff, Automatedon 01-2 Absolute Neut Normal 2.0-7.7 [facility] Comment on above: Result Comment: Canc elled via OM: Order cancelled - Patient discharged Performed By: #### L 100.0100, L500.2500 ####[facility] [address] [place], [address] HCT Normal 40-54 [facility] Comment on above: Result Comment: Canc elled via OM: Order cancelled - Patient discharged Performed By: #### L 100.0100, L500.2500 ####[facility] [address] [place], [address] HGB Normal 13.0-16.5 [facility] Comment on above: Result Comment: Canc elled via OM: Order cancelled - Patient discharged Performed By: #### L 100.0100, L500.2500 ####[facility] [address] [place], [address] MCH Normal 27.0-32.0 [facility] Comment on above: Result Comment: Canc elled via OM: Order cancelled - Patient discharged Performed By: #### L 100.0100, L500.2500 ####[facility] [address] [place], [address] MCHC Normal 32-36 [facility] Comment on above: Result Comment: Canc elled via OM: Order cancelled - Patient discharged Performed By: #### L 100.0100, L500.2500 ####[facility] [address] [place], [address] MCV Normal 80-94 [facility] Comment on above: Result Comment: Canc elled via OM: Order cancelled - Patient discharged Performed By: #### L 100.0100, L500.2500 ####[facility] [address] [place], [address] NEUT% Normal 47-70 [facility] Comment on above: Result Comment: Canc elled via OM: Order cancelled - Patient discharged Performed By: #### L 100.0100, L500.2500 ####[facility] [address] [place], [address] PLT Normal 150-450 [facility] Comment on above: Result Comment: Canc elled via OM: Order cancelled - Patient discharged Performed By: #### L 100.0100, L500.2500 ####[facility] [address] [place], [address] RBC Normal 4.6-6.2 [facility] Comment on above: Result Comment: Canc elled via OM: Order cancelled - Patient discharged Performed By: #### L 100.0100, L500.2500 ####[facility] [address] [place], [address] RDW CV Normal 11.6-14.6 [facility] Comment on above: Result Comment: Canc elled via OM: Order cancelled - Patient discharged Performed By: #### L 100.0100, L500.2500 ####[facility] [address] [place], [address] RDW SD Normal 35.1-43.9 [facility] Comment on above: Result Comment: Canc elled via OM: Order cancelled - Patient discharged Performed By: #### L 100.0100, L500.2500 ####[facility] [address] [place], [address] WBC Normal 4.4-11.0 [facility] Comment on above: Result Comment: Canc elled via OM: Order cancelled - Patient discharged Performed By: #### L 100.0100, L500.2500 ####[facility] [address] [place], [address] Culture, Blood (WB)on 2024 CUB Blood cultures x2, from two different sites No growth in 5 days. Normal [facility] Comment on above: Performed By: #### M 200.1000, L503.6005, L100.0100, L500.4050, L300.4310, L300.3900 ####[facility] [address] [place], [address] Basic Metabolic Profile (BMP )on 08-30-2024 BUN Normal 7-18 [facility] Comment on above: Result Comment: Canc elled via OM: Order cancelled - Patient discharged Performed By: #### L 500.2500, L100.0100 ####[facility] [address] [place], [address] BUN/CRE Normal 10-20 [facility] Comment on above: Result Comment: Canc elled via OM: Order cancelled - Patient discharged Performed By: #### L 500.2500, L100.0100 ####[facility] [address] [place], [address] CA,Total Normal 8.5-10.1 [facility] Comment on above: Result Comment: Canc elled via OM: Order cancelled - Patient discharged Performed By: #### L 500.2500, L100.0100 ####[facility] [address] [place], [address] CL Normal 98-107 [facility] Comment on above: Result Comment: Canc elled via OM: Order cancelled - Patient discharged Performed By: #### L 500.2500, L100.0100 ####[facility] [address] [place], [address] CO2 Normal 21.0-32.0 [facility] Comment on above: Result Comment: Canc elled via OM: Order cancelled - Patient discharged Performed By: #### L 500.2500, L100.0100 ####[facility] [address] [place], [address] CREAT,SERUM Normal 0.70-1.30 [facility] Comment on above: Result Comment: Canc elled via OM: Order cancelled - Patient discharged Performed By: #### L 500.2500, L100.0100 ####[facility] [address] [place], [address] EST GFR Normal >60 [facility] Comment on above: Result Comment: Canc elled via OM: Order cancelled - Patient discharged Performed By: #### L 500.2500, L100.0100 ####[facility] [address] [place], [address] EST GFR - AA Normal >60 [facility] Comment on above: Result Comment: Canc elled via OM: Order cancelled - Patient discharged Performed By: #### L 500.2500, L100.0100 ####[facility] [address] [place], [address] GAP Normal 5-15 [facility] Comment on above: Result Comment: Canc elled via OM: Order cancelled - Patient discharged Performed By: #### L 500.2500, L100.0100 ####[facility] [address] [place], [address] GLU Normal 74-106 [facility] Comment on above: Result Comment: Canc elled via OM: Order cancelled - Patient discharged Performed By: #### L 500.2500, L100.0100 ####[facility] [address] [place], [address] Potassium Normal 3.5-5.1 [facility] Comment on above: Result Comment: Canc elled via OM: Order cancelled - Patient discharged Performed By: #### L 500.2500, L100.0100 ####[facility] [address] [place], [address] Basic Metabolic Profile (BMP) Normal 136-145 [facility] Comment on above: Result Comment: Canc elled via OM: Order cancelled - Patient discharged Performed By: #### L 500.2500, L100.0100 ####[facility] [address] [place], [address] CBC W/Diff, Automatedon - Absolute Neut Normal 2.0-7.7 [facility] Comment on above: Result Comment: Canc elled via OM: Order cancelled - Patient discharged Performed By: #### L 500.2500, L100.0100 ####[facility] [address] [place], [address] HCT Normal 40-54 [facility] Comment on above: Result Comment: Canc elled via OM: Order cancelled - Patient discharged Performed By: #### L 500.2500, L100.0100 ####[facility] [address] [place], [address] HGB Normal 13.0-16.5 [facility] Comment on above: Result Comment: Canc elled via OM: Order cancelled - Patient discharged Performed By: #### L 500.2500, L100.0100 ####[facility] [address] [place], [address] MCH Normal 27.0-32.0 [facility] Comment on above: Result Comment: Canc elled via OM: Order cancelled - Patient discharged Performed By: #### L 500.2500, L100.0100 ####[facility] [address] [place], [address] MCHC Normal 32-36 [facility] Comment on above: Result Comment: Canc elled via OM: Order cancelled - Patient discharged Performed By: #### L 500.2500, L100.0100 ####[facility] [address] [place], [address] MCV Normal 80-94 [facility] Comment on above: Result Comment: Canc elled via OM: Order cancelled - Patient discharged Performed By: #### L 500.2500, L100.0100 ####[facility] [address] [place], [address] NEUT% Normal 47-70 [facility] Comment on above: Result Comment: Canc elled via OM: Order cancelled - Patient discharged Performed By: #### L 500.2500, L100.0100 ####[facility] [address] [place], [address] PLT Normal 150-450 [facility] Comment on above: Result Comment: Canc elled via OM: Order cancelled - Patient discharged Performed By: #### L 500.2500, L100.0100 ####[facility] [address] [place], [address] RBC Normal 4.6-6.2 [facility] Comment on above: Result Comment: Canc elled via OM: Order cancelled - Patient discharged Performed By: #### L 500.2500, L100.0100 ####[facility] [address] [place], [address] RDW CV Normal 11.6-14.6 [facility] Comment on above: Result Comment: Canc elled via OM: Order cancelled - Patient discharged Performed By: #### L 500.2500, L100.0100 ####[facility] [address] [place], [address] RDW SD Normal 35.1-43.9 [facility] Comment on above: Result Comment: Canc elled via OM: Order cancelled - Patient discharged Performed By: #### L 500.2500, L100.0100 ####[facility] [address] [place], [address] WBC Normal 4.4-11.0 [facility] Comment on above: Result Comment: Canc elled via OM: Order cancelled - Patient discharged Performed By: #### L 500.2500, L100.0100 ####[facility] [address] [place], [address] Basic Metabolic Profile (BMP )on 08-29-2024 BUN Normal 7-18 [facility] Comment on above: Result Comment: Canc elled via OM: Order cancelled - Patient discharged Performed By: #### L 500.2500, L100.0100 ####[facility] [address] [place], [address] BUN/CRE Normal 10-20 [facility] Comment on above: Result Comment: Canc elled via OM: Order cancelled - Patient discharged Performed By: #### L 500.2500, L100.0100 ####[facility] [address] [place], [address] CA,Total Normal 8.5-10.1 [facility] Comment on above: Result Comment: Canc elled via OM: Order cancelled - Patient discharged Performed By: #### L 500.2500, L100.0100 ####[facility] [address] [place], [address] CL Normal 98-107 [facility] Comment on above: Result Comment: Canc elled via OM: Order cancelled - Patient discharged Performed By: #### L 500.2500, L100.0100 ####[facility] [address] [place], [address] CO2 Normal 21.0-32.0 [facility] Comment on above: Result Comment: Canc elled via OM: Order cancelled - Patient discharged Performed By: #### L 500.2500, L100.0100 ####[facility] [address] [place], [address] CREAT,SERUM Normal 0.70-1.30 [facility] Comment on above: Result Comment: Canc elled via OM: Order cancelled - Patient discharged Performed By: #### L 500.2500, L100.0100 ####[facility] [address] [place], [address] EST GFR Normal >60 [facility] Comment on above: Result Comment: Canc elled via OM: Order cancelled - Patient discharged Performed By: #### L 500.2500, L100.0100 ####[facility] [address] [place], [address] EST GFR - AA Normal >60 [facility] Comment on above: Result Comment: Canc elled via OM: Order cancelled - Patient discharged Performed By: #### L 500.2500, L100.0100 ####[facility] [address] [place], [address] GAP Normal 5-15 [facility] Comment on above: Result Comment: Canc elled via OM: Order cancelled - Patient discharged Performed By: #### L 500.2500, L100.0100 ####[facility] [address] [place], [address] GLU Normal 74-106 [facility] Comment on above: Result Comment: Canc elled via OM: Order cancelled - Patient discharged Performed By: #### L 500.2500, L100.0100 ####[facility] [address] [place], [address] Potassium Normal 3.5-5.1 [facility] Comment on above: Result Comment: Canc elled via OM: Order cancelled - Patient discharged Performed By: #### L 500.2500, L100.0100 ####[facility] [address] [place], [address] Basic Metabolic Profile (BMP) Normal 136-145 [facility] Comment on above: Result Comment: Canc elled via OM: Order cancelled - Patient discharged Performed By: #### L 500.2500, L100.0100 ####[facility] [address] [place], [address] CBC W/Diff, Automatedon -2 Absolute Neut Normal 2.0-7.7 [facility] Comment on above: Result Comment: Canc elled via OM: Order cancelled - Patient discharged Performed By: #### L 500.2500, L100.0100 ####[facility] [address] [place], [address] HCT Normal 40-54 [facility] Comment on above: Result Comment: Canc elled via OM: Order cancelled - Patient discharged Performed By: #### L 500.2500, L100.0100 ####[facility] [address] [place], [address] HGB Normal 13.0-16.5 [facility] Comment on above: Result Comment: Canc elled via OM: Order cancelled - Patient discharged Performed By: #### L 500.2500, L100.0100 ####[facility] [address] [place], [address] MCH Normal 27.0-32.0 [facility] Comment on above: Result Comment: Canc elled via OM: Order cancelled - Patient discharged Performed By: #### L 500.2500, L100.0100 ####[facility] [address] [place], [address] MCHC Normal 32-36 [facility] Comment on above: Result Comment: Canc elled via OM: Order cancelled - Patient discharged Performed By: #### L 500.2500, L100.0100 ####[facility] [address] [place], [address] MCV Normal 80-94 [facility] Comment on above: Result Comment: Canc elled via OM: Order cancelled - Patient discharged Performed By: #### L 500.2500, L100.0100 ####[facility] [address] [place], [address] NEUT% Normal 47-70 [facility] Comment on above: Result Comment: Canc elled via OM: Order cancelled - Patient discharged Performed By: #### L 500.2500, L100.0100 ####[facility] [address] [place], [address] PLT Normal 150-450 [facility] Comment on above: Result Comment: Canc elled via OM: Order cancelled - Patient discharged Performed By: #### L 500.2500, L100.0100 ####[facility] [address] [place], [address] RBC Normal 4.6-6.2 [facility] Comment on above: Result Comment: Canc elled via OM: Order cancelled - Patient discharged Performed By: #### L 500.2500, L100.0100 ####[facility] [address] [place], [address] RDW CV Normal 11.6-14.6 [facility] Comment on above: Result Comment: Canc elled via OM: Order cancelled - Patient discharged Performed By: #### L 500.2500, L100.0100 ####[facility] [address] [place], [address] RDW SD Normal 35.1-43.9 [facility] Comment on above: Result Comment: Canc elled via OM: Order cancelled - Patient discharged Performed By: #### L 500.2500, L100.0100 ####[facility] [address] [place], [address] WBC Normal 4.4-11.0 [facility] Comment on above: Result Comment: Canc elled via OM: Order cancelled - Patient discharged Performed By: #### L 500.2500, L100.0100 ####[facility] [address] [place], [address] Absolute neutrophil countOrd ered By: Catherine Barton on 08-28-2024 Absolute neutrophil count 3.3 X10^3/uL 2.0-7.7 [facility] Basic Metabolic Profile (BMP )on 08-28-2024 BUN/CRE 16.4 RATIO Normal 10-20 [facility] Comment on above: Performed By: #### L 500.2500, L100.0100 ####[facility] [address] [place], [address] CA,Total 8.9 mg/dL Normal 8.5-10.1 [facility] Comment on above: Performed By: #### L 500.2500, L100.0100 ####[facility] [address] [place], [address] Chloride [Moles/Vol] 104 mmol/L Normal 98-107 [facility] Comment on above: Performed By: #### L 500.2500, L100.0100 ####[facility] [address] [place], [address] CO2 [Moles/Vol] 30.0 mmol/L Normal 21.0-32.0 [facility] Comment on above: Performed By: #### L 500.2500, L100.0100 ####[facility] [address] [place], [address] Creatinine [Mass/Vol] 0.73 mg/dL Normal 0.70-1.30 [facility] Comment on above: Result Comment: The validity of the calculated GFR GFRAA in patients over70 years has not been determined. Clinical correlation isessential. Performed By: #### L 500.2500, L100.0100 ####[facility] [address] [place], [address] ECRCL 84.79 ml/min Normal [facility] Comment on above: Performed By: #### L 500.2500, L100.0100 ####[facility] [address] [place], [address] EST GFR - AA 138 mL/min Normal >60 [facility] Comment on above: Result Comment: Afri can Togolese GFR Calc Performed By: #### L 500.2500, L100.0100 ####[facility] [address] [place], [address] GAP 7 Normal 5-15 [facility] Comment on above: Performed By: #### L 500.2500, L100.0100 ####[facility] [address] [place], [address] GFR/1.73 sq M.predicted among non-blacks MDRD (S/P/Bld) [Vol rate/Area] 114 mL/min/{1.73_m2} Normal >60 [facility] Comment on above: Result Comment: Non- GFR Calc Performed By: #### L 500.2500, L100.0100 ####[facility] [address] [place], [address] Glucose [Mass/Vol] 55 mg/dL Low 74-106 [facility] Comment on above: Performed By: #### L 500.2500, L100.0100 ####[facility] [address] [place], [address] Potassium [Moles/Vol] 3.6 mmol/L Normal 3.5-5.1 [facility] Comment on above: Performed By: #### L 500.2500, L100.0100 ####[facility] [address] [place], [address] Sodium [Moles/Vol] 140 mmol/L Normal 136-145 [facility] Comment on above: Performed By: #### L 500.2500, L100.0100 ####[facility] [address] [place], [address] Urea nitrogen [Mass/Vol] 12 mg/dL Normal 7-18 [facility] Comment on above: Performed By: #### L 500.2500, L100.0100 ####[facility] [address] [place], [address] Basophil percentageOrdered B y: Catherine Barton on 08-28-2024 Basophil percentage 0.2 % 0-1 [facility] Bedside Glucoseon 08-28-2024 FINGERSTICK GLU 241 mg/dL High 74-106 [facility] Comment on above: Result Comment: ORLY DELGADILLO OF PATIENT CARE PER NURSING PROTOCOL Performed By: #### L 501.080 ####[facility] [address] [place], [address] FINGERSTICK GLU 94 mg/dL Normal 74-106 [facility] Comment on above: Result Comment: ORLY DELGADILLO OF PATIENT CARE PER NURSING PROTOCOL Performed By: #### L 501.080 ####[facility] [address] [place], [address] Blood urea nitrogen (BUN)/cr eatinine ratioOrdered By: Catherine Barton on 08-28-2024 Blood urea nitrogen (BUN)/creatinine ratio 16.4 RATIO 10-20 [facility] CBC W/Diff, Automatedon 08-08 Absolute Lymph 0.89 X10 3/uL Normal 0.83-4.51 [facility] Comment on above: Performed By: #### L 500.2500, L100.0100 ####[facility] [address] [place], [address] Absolute Neut 3.3 X10 3/uL Normal 2.0-7.7 [facility] Comment on above: Performed By: #### L 500.2500, L100.0100 ####[facility] [address] [place], [address] Basophils/100 WBC (Bld) 0.2 % Normal 0-1 [facility] Comment on above: Performed By: #### L 500.2500, L100.0100 ####[facility] [address] [place], [address] Eosinophils/100 WBC (Bld) 3.4 % Normal 0-5 [facility] Comment on above: Performed By: #### L 500.2500, L100.0100 ####[facility] [address] [place], [address] Erythrocyte distribution width (RBC) [Ratio] 13.9 % Normal 11.6-14.6 [facility] Comment on above: Performed By: #### L 500.2500, L100.0100 ####[facility] [address] [place], [address] Hematocrit (Bld) [Volume fraction] 33.5 % Low 40-54 [facility] Comment on above: Performed By: #### L 500.2500, L100.0100 ####[facility] [address] [place], [address] Hemoglobin (Bld) [Mass/Vol] 11.0 g/dL Low 13.0-16.5 [facility] Comment on above: Performed By: #### L 500.2500, L100.0100 ####[facility] [address] [place], [address] IG% 0.600 Normal 0.0-0.9 [facility] Comment on above: Result Comment: IG% - Immature Granulocytes (promyelocytes, myelocytes andmetamyelocytes) > 1% indicates that a LEFT SHIFT is Present. Performed By: #### L 500.2500, L100.0100 ####[facility] [address] [place], [address] Lymphocytes/100 WBC (Bld) 17.6 % Low 19-41 [facility] Comment on above: Performed By: #### L 500.2500, L100.0100 ####[facility] [address] [place], [address] MCH (RBC) [Entitic mass] 28.7 pg Normal 27.0-32.0 [facility] Comment on above: Performed By: #### L 500.2500, L100.0100 ####[facility] [address] [place], [address] MCHC (RBC) [Mass/Vol] 32.8 g/dL Normal 32-36 [facility] Comment on above: Performed By: #### L 500.2500, L100.0100 ####[facility] [address] [place], [address] MCV (RBC) [Entitic vol] 87.5 fL Normal 80-94 [facility] Comment on above: Performed By: #### L 500.2500, L100.0100 ####[facility] [address] [place], [address] Monocytes/100 WBC (Bld) 14.0 % High 0-10 [facility] Comment on above: Performed By: #### L 500.2500, L100.0100 ####[facility] [address] [place], [address] Neutrophils/100 WBC (Bld) 64.2 % Normal 47-70 [facility] Comment on above: Performed By: #### L 500.2500, L100.0100 ####[facility] [address] [place], [address] Nucleated RBC (Bld) [#/Vol] 0 10*3/uL Normal 0-5 [facility] Comment on above: Performed By: #### L 500.2500, L100.0100 ####[facility] [address] [place], [address] Platelet mean volume (Bld) [Entitic vol] 9.4 fL Normal 6.2-12.0 [facility] Comment on above: Performed By: #### L 500.2500, L100.0100 ####[facility] [address] [place], [address] Platelets (Bld) [#/Vol] 211 10*3/uL Normal 150-450 [facility] Comment on above: Performed By: #### L 500.2500, L100.0100 ####[facility] [address] [place], [address] RBC (Bld) [#/Vol] 3.83 10*6/uL Low 4.6-6.2 [facility] Comment on above: Performed By: #### L 500.2500, L100.0100 ####[facility] [address] [place], [address] RDW SD 44.2 fl High 35.1-43.9 [facility] Comment on above: Performed By: #### L 500.2500, L100.0100 ####[facility] [address] [place], [address] WBC (Bld) [#/Vol] 5.1 10*3/uL Normal 4.4-11.0 [facility] Comment on above: Performed By: #### L 500.2500, L100.0100 ####[facility] [address] [place], [address] Calcium [Mass/Vol]Ordered By : Catherine Barton on 08-28-2024 Serum or plasma calcium measurement (mass/volume) 8.9 mg/dL 8.5-10.1 [facility] Carbon dioxide measurementOr dered By: Catherine Barton on 08-28-2024 Carbon dioxide measurement 30.0 mmol/L 21.0-32.0 [facility] Chloride measurementOrdered By: Catherine Barton on 08-28-2024 Chloride measurement 104 mmol/L 98-107 [facility] Creatinine [Mass/Vol]Ordered By: Catherine Barton on 08-28-2024 Serum or plasma creatinine measurement (mass/volume) 0.73 mg/dL 0.70-1.30 [facility] Discharge Instructionon 08-08 Discharge Instruction Normal [facility] Eosinophil percentageOrdered By: Catherine Barton on 08-28-2024 Eosinophil percentage 3.4 % 0-5 [facility] Erythrocyte distribution wid th (RBC) [Ratio]Ordered By: Catherine Barton on 08-28-2024 Erythrocyte distribution width ratio 13.9 % 11.6-14.6 [facility] Erythrocyte distribution wid th standard deviationOrdered By: Catherine Barton on 08-28-2024 Erythrocyte distribution width standard deviation 44.2 fl High 35.1-43.9 [facility] Estimated glomerular filtrat ion rate (GFR) AmericanOrdered By: Catherine Barton on 01-22-2025 Estimated glomerular filtration rate (GFR) 138 mL/min >60 [facility] Estimation of creatinine all aranceOrdered By: Catherine Barton on 08-28-2024 Estimation of creatinine clearance 84.79 ml/min [facility] Glomerular filtration rate ( GFR) estimationOrdered By: Catherine Barton on 08-28-2024 Glomerular filtration rate (GFR) estimation 114 mL/min >60 [facility] Glucose measurementOrdered B y: Catherine Barton on 08-28-2024 Glucose measurement 55 mg/dL Low 74-106 [facility] Glucose measurement at bedsi deOrdered By: Catherine Barton on 08-28-2024 Glucose measurement at bedside 241 mg/dL High 74-106 [facility] Hematocrit Auto (Bld) [Volum e fraction]Ordered By: Catherine Barton on 08-28-2024 Automated blood hematocrit (percentage) 33.5 % Low 40-54 [facility] Hemoglobin measurementOrdere d By: Catherine Barton on 08-28-2024 Hemoglobin measurement 11.0 g/dL Low 13.0-16.5 [facility] Immature granulocytes/100 WB C Auto (Bld)Ordered By: Catherine Barton on 08-28-2024 Automated immature granulocyte percentage 0.600 % 0.0-0.9 [facility] Lymphocytes Auto (Unsp spec) [#/Vol]Ordered By: Catherine Barton on 08-28-2024 Absolute lymphocyte count 0.89 X10^3/uL 0.83-4.51 [facility] Lymphocytes/100 WBC Auto (Un sp spec)Ordered By: Catherine Barton on 08-28-2024 Automated lymphocyte count as percentage of total leukocytes 17.6 % Low 19-41 [facility] MCV (RBC) [Entitic vol]Order ed By: Catherine Barton on 08-28-2024 MCV (mean corpuscular volume) determination 87.5 fL 80-94 [facility] Mean corpuscular hemoglobin (MCH) determinationOrdered By: Catherine Barton on 08-28-2024 Mean corpuscular hemoglobin (MCH) determination 28.7 pg 27.0-32.0 [facility] Mean corpuscular hemoglobin concentration (MCHC) determinationOrdered By: Catherine Barton on 08-28-2024 Mean corpuscular hemoglobin concentration (MCHC) determination 32.8 g/dL 32-36 [facility] Mean platelet volume determi nationOrdered By: Catherine Barton on 08-28-2024 Mean platelet volume determination 9.4 fl 6.2-12.0 [facility] Monocyte percentageOrdered B y: Catherine Barton on 08-28-2024 Monocyte percentage 14.0 % High 0-10 [facility] Neutrophil percentageOrdered By: Catherine Barton on 08-28-2024 Neutrophil percentage 64.2 % 47-70 [facility] Nucleated red blood cell per centageOrdered By: Catherine Barton on 08-28-2024 Nucleated red blood cell percentage 0 % 0-5 [facility] Platelet countOrdered By: Raven Barton on 08-28-2024 Platelet count 211 K/mm3 150-450 [facility] Potassium measurementOrdered By: Catherine Barton on 08-28-2024 Potassium measurement 3.6 mmol/L 3.5-5.1 [facility] RBC Auto (Bld) [#/Vol]Ordere d By: Catherine Barton on 08-28-2024 Automated blood erythrocyte count 3.83 M/mm3 Low 4.6-6.2 [facility] Serum anion gap measurementO rdered By: Catherine Barton on 08-28-2024 Serum anion gap measurement 7 5-15 [facility] Sodium levelOrdered By: Catherine Barton on 08-28-2024 Sodium level 140 mmol/L 136-145 [facility] Urea nitrogen [Mass/Vol]Orde red By: Catherine Barton on 08-28-2024 Serum or plasma urea nitrogen measurement (mass/volume) 12 mg/dL 7-18 [facility] White blood cell (WBC) count Ordered By: Catherine Barton on 08-28-2024 White blood cell (WBC) count 5.1 K/mm3 4.4-11.0 [facility] Basic Metabolic Profile (BMP )on 08-27-2024 BUN/CRE 16.1 RATIO Normal 10-20 [facility] Comment on above: Performed By: #### L 500.2500, L100.0100 ####[facility] [address] [place], [address] CA,Total 8.8 mg/dL Normal 8.5-10.1 [facility] Comment on above: Performed By: #### L 500.2500, L100.0100 ####[facility] [address] [place], [address] Chloride [Moles/Vol] 103 mmol/L Normal 98-107 [facility] Comment on above: Performed By: #### L 500.2500, L100.0100 ####[facility] [address] [place], [address] CO2 [Moles/Vol] 28.0 mmol/L Normal 21.0-32.0 [facility] Comment on above: Performed By: #### L 500.2500, L100.0100 ####[facility] [address] [place], [address] Creatinine [Mass/Vol] 0.68 mg/dL Low 0.70-1.30 [facility] Comment on above: Result Comment: The validity of the calculated GFR GFRAA in patients over70 years has not been determined. Clinical correlation isessential. Performed By: #### L 500.2500, L100.0100 ####[facility] [address] [place], [address] ECRCL 83.51 ml/min Normal [facility] Comment on above: Performed By: #### L 500.2500, L100.0100 ####[facility] [address] [place], [address] EST GFR - AA 149 mL/min Normal >60 [facility] Comment on above: Result Comment: Afri can Togolese GFR Calc Performed By: #### L 500.2500, L100.0100 ####[facility] [address] [place], [address] GAP 7 Normal 5-15 [facility] Comment on above: Performed By: #### L 500.2500, L100.0100 ####[facility] [address] [place], [address] GFR/1.73 sq M.predicted among non-blacks MDRD (S/P/Bld) [Vol rate/Area] 123 mL/min/{1.73_m2} Normal >60 [facility] Comment on above: Result Comment: Non- GFR Calc Performed By: #### L 500.2500, L100.0100 ####[facility] [address] [place], [address] Glucose [Mass/Vol] 108 mg/dL High 74-106 [facility] Comment on above: Result Comment: Fast ing Glucose result from 100 to 125 mg/dLsuggests IMPAIRED HOMEOSTASIS per A.D.A. criteria. Performed By: #### L 500.2500, L100.0100 ####[facility] [address] [place], [address] Potassium [Moles/Vol] 3.4 mmol/L Low 3.5-5.1 [facility] Comment on above: Performed By: #### L 500.2500, L100.0100 ####[facility] [address] [place], [address] Sodium [Moles/Vol] 138 mmol/L Normal 136-145 [facility] Comment on above: Performed By: #### L 500.2500, L100.0100 ####[facility] [address] [place], [address] Urea nitrogen [Mass/Vol] 11 mg/dL Normal 7-18 [facility] Comment on above: Performed By: #### L 500.2500, L100.0100 ####[facility] [address] [place], [address] Bedside Glucoseon 08-27-2024 FINGERSTICK GLU 242 mg/dL High 74-106 [facility] Comment on above: Result Comment: ORLY GEMENT OF PATIENT CARE PER NURSING PROTOCOL Performed By: #### L 501.080 ####[facility] [address] [place], [address] FINGERSTICK GLU 183 mg/dL High 74-106 [facility] Comment on above: Result Comment: ORLY GEMENT OF PATIENT CARE PER NURSING PROTOCOL Performed By: #### L 501.080 ####[facility] [address] [place], [address] FINGERSTICK GLU 116 mg/dL High 74-106 [facility] Comment on above: Result Comment: ORLY GEMENT OF PATIENT CARE PER NURSING PROTOCOL Performed By: #### L 501.080 ####[facility] [address] [place], [address] FINGERSTICK GLU 101 mg/dL Normal 74-106 [facility] Comment on above: Result Comment: ORLY GEMENT OF PATIENT CARE PER NURSING PROTOCOL Performed By: #### L 501.080 ####[facility] [address] [place], [address] CBC W/Diff, Automatedon 08-08 Absolute Lymph 0.83 X10 3/uL Normal 0.83-4.51 [facility] Comment on above: Performed By: #### L 500.2500, L100.0100 ####[facility] [address] [place], [address] Absolute Neut 3.3 X10 3/uL Normal 2.0-7.7 [facility] Comment on above: Performed By: #### L 500.2500, L100.0100 ####[facility] [address] [place], [address] Basophils/100 WBC (Bld) 0.4 % Normal 0-1 [facility] Comment on above: Performed By: #### L 500.2500, L100.0100 ####[facility] [address] [place], [address] Eosinophils/100 WBC (Bld) 3.2 % Normal 0-5 [facility] Comment on above: Performed By: #### L 500.2500, L100.0100 ####[facility] [address] [place], [address] Erythrocyte distribution width (RBC) [Ratio] 14.0 % Normal 11.6-14.6 [facility] Comment on above: Performed By: #### L 500.2500, L100.0100 ####[facility] [address] [place], [address] Hematocrit (Bld) [Volume fraction] 30.8 % Low 40-54 [facility] Comment on above: Performed By: #### L 500.2500, L100.0100 ####[facility] [address] [place], [address] Hemoglobin (Bld) [Mass/Vol] 10.4 g/dL Low 13.0-16.5 [facility] Comment on above: Performed By: #### L 500.2500, L100.0100 ####[facility] [address] [place], [address] IG% 0.400 Normal 0.0-0.9 [facility] Comment on above: Result Comment: IG% - Immature Granulocytes (promyelocytes, myelocytes andmetamyelocytes) > 1% indicates that a LEFT SHIFT is Present. Performed By: #### L 500.2500, L100.0100 ####[facility] [address] [place], [address] Lymphocytes/100 WBC (Bld) 16.6 % Low 19-41 [facility] Comment on above: Performed By: #### L 500.2500, L100.0100 ####[facility] [address] [place], [address] MCH (RBC) [Entitic mass] 29.5 pg Normal 27.0-32.0 [facility] Comment on above: Performed By: #### L 500.2500, L100.0100 ####[facility] [address] [place], [address] MCHC (RBC) [Mass/Vol] 33.8 g/dL Normal 32-36 [facility] Comment on above: Performed By: #### L 500.2500, L100.0100 ####[facility] [address] [place], [address] MCV (RBC) [Entitic vol] 87.3 fL Normal 80-[address] [facility] Comment on above: Performed By: #### L 500.2500, L100.0100 ####[facility] [address] [place], [address] Monocytes/100 WBC (Bld) 12.8 % High 0-[address] [facility] Comment on above: Performed By: #### L 500.2500, L100.0100 ####[facility] [address] [place], [address] Neutrophils/100 WBC (Bld) 66.6 % Normal 47-70 [facility] Comment on above: Performed By: #### L 500.2500, L100.0100 ####[facility] [address] [place], [address] Nucleated RBC (Bld) [#/Vol] 0 10*3/uL Normal 0-5 [facility] Comment on above: Performed By: #### L 500.2500, L100.0100 ####[facility] [address] [place], [address] Platelet mean volume (Bld) [Entitic vol] 9.6 fL Normal 6.2-12.0 [facility] Comment on above: Performed By: #### L 500.2500, L100.0100 ####[facility] [address] [place], [address] Platelets (Bld) [#/Vol] 196 10*3/uL Normal 150-450 [facility] Comment on above: Performed By: #### L 500.2500, L100.0100 ####[facility] [address] [place], [address] RBC (Bld) [#/Vol] 3.53 10*6/uL Low 4.6-6.2 [facility] Comment on above: Performed By: #### L 500.2500, L100.0100 ####[facility] [address] [place], [address] RDW SD 44.5 fl High 35.1-43.9 [facility] Comment on above: Performed By: #### L 500.2500, L100.0100 ####[facility] [address] [place], [address] WBC (Bld) [#/Vol] 5.0 10*3/uL Normal 4.4-11.0 [facility] Comment on above: Performed By: #### L 500.2500, L100.0100 ####[facility] [address] [place], [address] Urine Cultureon 08-27-2024 URC Normal [facility] Comment on above: Performed By: #### L 400.0001, M100.678, M100.2200 ####[facility] [address] [place], [address] ALP [Catalytic activity/Vol] Ordered By: Ling Ford on 08-26-2024 Serum or plasma alkaline phosphatase measurement 87 U/L 45-117 [facility] ALT [Catalytic activity/Vol] Ordered By: Ling Ford on 08-26-2024 Serum or plasma alanine aminotransferase (ALT) measurement 19 U/L 16-61 [facility] Albumin [Mass/Vol]Ordered By : Ling Ford on 08-26-2024 Serum or plasma albumin measurement (mass/volume) 2.8 g/dL Low 3.2-5.0 [facility] Albumin to globulin ratioOrd ered By: Ling Ford on 08-26-2024 Albumin to globulin ratio 0.8 RATIO Low 0.9-2.4 [facility] Bedside Glucoseon 08-26-2024 FINGERSTICK GLU 168 mg/dL High 74-106 [facility] Comment on above: Result Comment: ORLY GEMENT OF PATIENT CARE PER NURSING PROTOCOL Performed By: #### L 501.080 ####[facility] [address] [facility] [address] FINGERSTICK GLU 191 mg/dL High 74-106 [facility] Comment on above: Result Comment: ORLY GEMENT OF PATIENT CARE PER NURSING PROTOCOL Performed By: #### L 501.080 ####[facility] [address] [facility] [address] FINGERSTICK GLU 132 mg/dL High 74-106 [facility] Comment on above: Result Comment: ORLY GEMENT OF PATIENT CARE PER NURSING PROTOCOL Performed By: #### L 501.080 ####[facility] [address] [place], [address] FINGERSTICK GLU 102 mg/dL Normal 74-106 [facility] Comment on above: Result Comment: ORLY GEMENT OF PATIENT CARE PER NURSING PROTOCOL Performed By: #### L 501.080 ####[facility] [address] [place], [address] FINGERSTICK GLU 57 mg/dL Low 74-106 [facility] Comment on above: Result Comment: ORLY GEMENT OF PATIENT CARE PER NURSING PROTOCOL Performed By: #### L 501.080 ####[facility] [address] [place], [address] FINGERSTICK GLU 53 mg/dL Low 74-106 [facility] Comment on above: Result Comment: ORLY GEMENT OF PATIENT CARE PER NURSING PROTOCOL Performed By: #### L 501.080 ####[facility] [address] [place], [address] FINGERSTICK GLU 80 mg/dL Normal 74-106 [facility] Comment on above: Result Comment: ORLY GEMENT OF PATIENT CARE PER NURSING PROTOCOL Performed By: #### L 501.080 ####[facility] [address] [place], [address] FINGERSTICK GLU 61 mg/dL Low 74-106 [facility] Comment on above: Result Comment: ORLY GEMENT OF PATIENT CARE PER NURSING PROTOCOL Performed By: #### L 501.080 ####[facility] [address] [place], [address] Bilirubin, totalOrdered By: Ling Ford on 08-26-2024 Bilirubin, total 0.30 mg/dL 0.20-1.00 [facility] CBC W/Diff, Automatedon 08-08 Absolute Lymph 0.77 X10 3/uL Low 0.83-4.51 [facility] Comment on above: Performed By: #### L 500.4050, L501.5200, L501.2300, L100.0100 ####[facility] [address] [place], [address] Absolute Neut 4.3 X10 3/uL Normal 2.0-7.7 [facility] Comment on above: Performed By: #### L 500.4050, L501.5200, L501.2300, L100.0100 ####[facility] [address] [place], [address] Basophils/100 WBC (Bld) 0.2 % Normal 0-1 [facility] Comment on above: Performed By: #### L 500.4050, L501.5200, L501.2300, L100.0100 ####[facility] [address] [place], [address] Eosinophils/100 WBC (Bld) 1.5 % Normal 0-5 [facility] Comment on above: Performed By: #### L 500.4050, L501.5200, L501.2300, L100.0100 ####[facility] [address] [place], [address] Erythrocyte distribution width (RBC) [Ratio] 14.1 % Normal 11.6-14.6 [facility] Comment on above: Performed By: #### L 500.4050, L501.5200, L501.2300, L100.0100 ####[facility] [address] [place], [address] Hematocrit (Bld) [Volume fraction] 30.6 % Low 40-54 [facility] Comment on above: Performed By: #### L 500.4050, L501.5200, L501.2300, L100.0100 ####[facility] [address] [place], [address] Hemoglobin (Bld) [Mass/Vol] 10.1 g/dL Low 13.0-16.5 [facility] Comment on above: Performed By: #### L 500.4050, L501.5200, L501.2300, L100.0100 ####[facility] [address] [place], [address] IG% 0.200 Normal 0.0-0.9 [facility] Comment on above: Result Comment: IG% - Immature Granulocytes (promyelocytes, myelocytes andmetamyelocytes) > 1% indicates that a LEFT SHIFT is Present. Performed By: #### L 500.4050, L501.5200, L501.2300, L100.0100 ####[facility] [address] [place], [address] Lymphocytes/100 WBC (Bld) 12.9 % Low 19-41 [facility] Comment on above: Performed By: #### L 500.4050, L501.5200, L501.2300, L100.0100 ####[facility] [address] [place], [address] MCH (RBC) [Entitic mass] 29.1 pg Normal 27.0-32.0 [facility] Comment on above: Performed By: #### L 500.4050, L501.5200, L501.2300, L100.0100 ####[facility] [address] [place], [address] MCHC (RBC) [Mass/Vol] 33.0 g/dL Normal 32-36 [facility] Comment on above: Performed By: #### L 500.4050, L501.5200, L501.2300, L100.0100 ####[facility] [address] [place], [address] MCV (RBC) [Entitic vol] 88.2 fL Normal 80-[address] [facility] Comment on above: Performed By: #### L 500.4050, L501.5200, L501.2300, L100.0100 ####[facility] [address] [place], [address] Monocytes/100 WBC (Bld) 13.2 % High 0-10 [facility] Comment on above: Performed By: #### L 500.4050, L501.5200, L501.2300, L100.0100 ####[facility] [address] [place], [address] Neutrophils/100 WBC (Bld) 72.0 % High 47-70 [facility] Comment on above: Performed By: #### L 500.4050, L501.5200, L501.2300, L100.0100 ####[facility] [address] [place], [address] Nucleated RBC (Bld) [#/Vol] 0 10*3/uL Normal 0-5 [facility] Comment on above: Performed By: #### L 500.4050, L501.5200, L501.2300, L100.0100 ####[facility] [address] [place], [address] Platelet mean volume (Bld) [Entitic vol] 9.6 fL Normal 6.2-12.0 [facility] Comment on above: Performed By: #### L 500.4050, L501.5200, L501.2300, L100.0100 ####[facility] [address] [place], [address] Platelets (Bld) [#/Vol] 227 10*3/uL Normal 150-450 [facility] Comment on above: Performed By: #### L 500.4050, L501.5200, L501.2300, L100.0100 ####[facility] [address] [place], [address] RBC (Bld) [#/Vol] 3.47 10*6/uL Low 4.6-6.2 [facility] Comment on above: Performed By: #### L 500.4050, L501.5200, L501.2300, L100.0100 ####[facility] [address] [place], [address] RDW SD 44.6 fl High 35.1-43.9 [facility] Comment on above: Performed By: #### L 500.4050, L501.5200, L501.2300, L100.0100 ####[facility] [address] [place], [address] WBC (Bld) [#/Vol] 6.0 10*3/uL Normal 4.4-11.0 [facility] Comment on above: Performed By: #### L 500.4050, L501.5200, L501.2300, L100.0100 ####[facility] [address] [place], [address] Comprehensive Metabolic Prof ilon 08-26-2024 Albumin [Mass/Vol] 2.8 g/dL Low 3.2-5.0 [facility] Comment on above: Performed By: #### L 500.4050, L501.5200, L501.2300, L100.0100 ####[facility] [address] [place], [address] Albumin/Globulin [Mass ratio] 0.8 {ratio} Low 0.9-2.4 [facility] Comment on above: Performed By: #### L 500.4050, L501.5200, L501.2300, L100.0100 ####[facility] [address] [place], [address] ALK P 87 U/L Normal 45-117 [facility] Comment on above: Performed By: #### L 500.4050, L501.5200, L501.2300, L100.0100 ####[facility] [address] [place], [address] ALT [Catalytic activity/Vol] 19 U/L Normal 16-61 [facility] Comment on above: Performed By: #### L 500.4050, L501.5200, L501.2300, L100.0100 ####[facility] [address] [place], [address] AST [Catalytic activity/Vol] 17 U/L Normal 15-37 [facility] Comment on above: Performed By: #### L 500.4050, L501.5200, L501.2300, L100.0100 ####[facility] [address] [place], [address] Bilirubin [Mass/Vol] 0.30 mg/dL Normal 0.20-1.00 [facility] Comment on above: Result Comment: For patients on eltrombopag therapy, use of Dimension Capitola TBIL is not recommended. Performed By: #### L 500.4050, L501.5200, L501.2300, L100.0100 ####[facility] [address] [place], [address] BUN/CRE 17.2 RATIO Normal 10-20 [facility] Comment on above: Performed By: #### L 500.4050, L501.5200, L501.2300, L100.0100 ####[facility] [address] [place], [address] CA,Total 8.5 mg/dL Normal 8.5-10.1 [facility] Comment on above: Performed By: #### L 500.4050, L501.5200, L501.2300, L100.0100 ####[facility] [address] [place], [address] Chloride [Moles/Vol] 105 mmol/L Normal 98-107 [facility] Comment on above: Performed By: #### L 500.4050, L501.5200, L501.2300, L100.0100 ####[facility] [address] [place], [address] CO2 [Moles/Vol] 26.0 mmol/L Normal 21.0-32.0 [facility] Comment on above: Performed By: #### L 500.4050, L501.5200, L501.2300, L100.0100 ####[facility] [address] [place], [address] Creatinine [Mass/Vol] 0.64 mg/dL Low 0.70-1.30 [facility] Comment on above: Result Comment: The validity of the calculated GFR GFRAA in patients over70 years has not been determined. Clinical correlation isessential. Performed By: #### L 500.4050, L501.5200, L501.2300, L100.0100 ####[facility] [address] [place], [address] ECRCL 83.51 ml/min Normal [facility] Comment on above: Performed By: #### L 500.4050, L501.5200, L501.2300, L100.0100 ####[facility] [address] [place], [address] EST GFR - AA 161 mL/min Normal >60 [facility] Comment on above: Result Comment: Afri can Togolese GFR Calc Performed By: #### L 500.4050, L501.5200, L501.2300, L100.0100 ####[facility] [address] [place], [address] GAP 6 Normal 5-15 [facility] Comment on above: Performed By: #### L 500.4050, L501.5200, L501.2300, L100.0100 ####[facility] [address] [place], [address] GFR/1.73 sq M.predicted among non-blacks MDRD (S/P/Bld) [Vol rate/Area] 133 mL/min/{1.73_m2} Normal >60 [facility] Comment on above: Result Comment: Non- GFR Calc Performed By: #### L 500.4050, L501.5200, L501.2300, L100.0100 ####[facility] [address] [place], [address] Globulin (S) [Mass/Vol] 3.7 g/dL Normal 2.2-4.[address] [facility] Comment on above: Performed By: #### L 500.4050, L501.5200, L501.2300, L100.0100 ####[facility] [address] [place], [address] Glucose [Mass/Vol] 73 mg/dL Low 74-106 [facility] Comment on above: Performed By: #### L 500.4050, L501.5200, L501.2300, L100.0100 ####[facility] [address] [place], [address] Potassium [Moles/Vol] 3.4 mmol/L Low 3.5-5.1 [facility] Comment on above: Performed By: #### L 500.4050, L501.5200, L501.2300, L100.0100 ####[facility] [address] [place], [address] Sodium [Moles/Vol] 137 mmol/L Normal 136-145 [facility] Comment on above: Performed By: #### L 500.4050, L501.5200, L501.2300, L100.0100 ####[facility] [address] [place], [address] T PROT 6.5 g/dL Normal 6.4-8.2 [facility] Comment on above: Performed By: #### L 500.4050, L501.5200, L501.2300, L100.0100 ####[facility] [address] [place], [address] Urea nitrogen [Mass/Vol] 11 mg/dL Normal 7-18 [facility] Comment on above: Performed By: #### L 500.4050, L501.5200, L501.2300, L100.0100 ####[facility] [address] [place], [address] Consultation - Infectious Dx on 08-26-2024 Consultation - Infectious Dx Normal [facility] Consultation - Urologyon Consultation - Urology Normal [facility] Magnesiumon 08-26-2024 Magnesium [Mass/Vol] 1.3 mg/dL Low 1.6-2.6 [facility] Comment on above: Performed By: #### L 500.4050, L501.5200, L501.2300, L100.0100 ####[facility] [address] [place], [place], [address] Magnesium measurementOrdered By: Ling Ford on 08-26-2024 Magnesium measurement 1.3 mg/dL Low 1.6-2.6 [facility] No Panel InformationOrdered By: Ling Ford on 08-26-2024 17 U/L 15-37 [facility] Phosphoruson 08-26-2024 Phosphate [Mass/Vol] 3.5 mg/dL Normal 2.5-4.9 [facility] Comment on above: Performed By: #### L 500.4050, L501.5200, L501.2300, L100.0100 ####[facility] [address] [place], [place], [address] Phosphorus measurementOrdere d By: Ling Ford on 08-26-2024 Phosphorus measurement 3.5 mg/dL 2.5-4.9 [facility] Serum globulin measurementOr dered By: Ling Ford on 08-26-2024 Serum globulin measurement 3.7 g/dL 2.2-4.2 [facility] Total proteinOrdered By: Calista Ford on 08-26-2024 Total protein 6.5 g/dL 6.4-8.2 [facility] Abdomen/Pelvis without Conto n 08-25-2024 Abdomen/Pelvis without Cont Normal [facility] Blood cultureOrdered By: Niko Britton on 08-25-2024 Blood culture No growth in 5 days. [facility] Blood culture No growth in 5 days. [facility] Brain/Head without Contrasto n 08-25-2024 Brain/Head without Contrast Normal [facility] CBC W/Diff, Automatedon 08-07 Absolute Lymph 0.74 X10 3/uL Low 0.83-4.51 [facility] Comment on above: Performed By: #### M 200.1000, L503.6005, L100.0100, L500.4050, L300.4310, L300.3900 ####[facility] [address] [place], [address] Absolute Neut 5.1 X10 3/uL Normal 2.0-7.7 [facility] Comment on above: Performed By: #### M 200.1000, L503.6005, L100.0100, L500.4050, L300.4310, L300.3900 ####[facility] [address] [place], [address] Basophils/100 WBC (Bld) 0.5 % Normal 0-1 [facility] Comment on above: Performed By: #### M 200.1000, L503.6005, L100.0100, L500.4050, L300.4310, L300.3900 ####[facility] [address] [place], [address] Eosinophils/100 WBC (Bld) 1.4 % Normal 0-5 [facility] Comment on above: Performed By: #### M 200.1000, L503.6005, L100.0100, L500.4050, L300.4310, L300.3900 ####[facility] [address] [place], [address] Erythrocyte distribution width (RBC) [Ratio] 14.0 % Normal 11.6-14.6 [facility] Comment on above: Performed By: #### M 200.1000, L503.6005, L100.0100, L500.4050, L300.4310, L300.3900 ####[facility] [address] [place], [address] Hematocrit (Bld) [Volume fraction] 37.6 % Low 40-54 [facility] Comment on above: Performed By: #### M 200.1000, L503.6005, L100.0100, L500.4050, L300.4310, L300.3900 ####[facility] [address] [place], [address] Hemoglobin (Bld) [Mass/Vol] 12.6 g/dL Low 13.0-16.5 [facility] [facility] Comment on above: Performed By: #### M 200.1000, L503.6005, L100.0100, L500.4050, L300.4310, L300.3900 ####[facility] [address] [place], [address] IG% 0.200 Normal 0.0-0.9 [facility] Comment on above: Result Comment: IG% - Immature Granulocytes (promyelocytes, myelocytes andmetamyelocytes) > 1% indicates that a LEFT SHIFT is Present. Performed By: #### M 200.1000, L503.6005, L100.0100, L500.4050, L300.4310, L300.3900 ####[facility] [address] [place], [address] Lymphocytes/100 WBC (Bld) 11.3 % Low 19-41 [facility] Comment on above: Performed By: #### M 200.1000, L503.6005, L100.0100, L500.4050, L300.4310, L300.3900 ####[facility] [address] [place], [address] MCH (RBC) [Entitic mass] 29.3 pg Normal 27.0-32.0 [facility] Comment on above: Performed By: #### M 200.1000, L503.6005, L100.0100, L500.4050, L300.4310, L300.3900 ####[facility] [address] [place], [address] MCHC (RBC) [Mass/Vol] 33.5 g/dL Normal 32-36 [facility] Comment on above: Performed By: #### M 200.1000, L503.6005, L100.0100, L500.4050, L300.4310, L300.3900 ####[facility] [address] [place], [address] MCV (RBC) [Entitic vol] 87.4 fL Normal 80-94 [facility] Comment on above: Performed By: #### M 200.1000, L503.6005, L100.0100, L500.4050, L300.4310, L300.3900 ####[facility] [address] [place], [address] Monocytes/100 WBC (Bld) 9.0 % Normal 0-10 [facility] Comment on above: Performed By: #### M 200.1000, L503.6005, L100.0100, L500.4050, L300.4310, L300.3900 ####[facility] [address] [place], [address] Neutrophils/100 WBC (Bld) 77.6 % High 47-70 [facility] Comment on above: Performed By: #### M 200.1000, L503.6005, L100.0100, L500.4050, L300.4310, L300.3900 ####[facility] [address] [place], [address] Nucleated RBC (Bld) [#/Vol] 0 10*3/uL Normal 0-5 [facility] Comment on above: Performed By: #### M 200.1000, L503.6005, L100.0100, L500.4050, L300.4310, L300.3900 ####[facility] [address] [place], [address] Platelet mean volume (Bld) [Entitic vol] 9.3 fL Normal 6.2-12.0 [facility] Comment on above: Performed By: #### M 200.1000, L503.6005, L100.0100, L500.4050, L300.4310, L300.3900 ####[facility] [address] [place], [address] Platelets (Bld) [#/Vol] 252 10*3/uL Normal 150-450 [facility] Comment on above: Performed By: #### M 200.1000, L503.6005, L100.0100, L500.4050, L300.4310, L300.3900 ####[facility] [address] [place], [address] RBC (Bld) [#/Vol] 4.30 10*6/uL Low 4.6-6.2 [facility] Comment on above: Performed By: #### M 200.1000, L503.6005, L100.0100, L500.4050, L300.4310, L300.3900 ####[facility] [address] [place], [address] RDW SD 44.4 fl High 35.1-43.9 [facility] Comment on above: Performed By: #### M 200.1000, L503.6005, L100.0100, L500.4050, L300.4310, L300.3900 ####[facility] [address] [place], [address] WBC (Bld) [#/Vol] 6.5 10*3/uL Normal 4.4-11.0 [facility] Comment on above: Performed By: #### M 200.1000, L503.6005, L100.0100, L500.4050, L300.4310, L300.3900 ####[facility] [address] [place], [address] Chest 1 View (Portable)on Chest 1 View (Portable) Normal [facility] Clarity (U)Ordered By: Fabricio Britton on 08-25-2024 Urine clarity Sl. Cloudy Clear [facility] Color (U)Ordered By: Kenzie Britton on 08-25-2024 Urine color determination Yellow Yellow [facility] Comprehensive Metabolic Prof ilon 08-25-2024 Albumin [Mass/Vol] 3.3 g/dL Normal 3.2-5.0 [facility] Comment on above: Performed By: #### M 200.1000, L503.6005, L100.0100, L500.4050, L300.4310, L300.3900 ####[facility] [address] [place], [address] Albumin/Globulin [Mass ratio] 0.7 {ratio} Low 0.9-2.4 [facility] Comment on above: Performed By: #### M 200.1000, L503.6005, L100.0100, L500.4050, L300.4310, L300.3900 ####[facility] [address] [place], [address] ALK P 117 U/L Normal 45-117 [facility] Comment on above: Performed By: #### M 200.1000, L503.6005, L100.0100, L500.4050, L300.4310, L300.3900 ####[facility] [address] [place], [address] ALT [Catalytic activity/Vol] 23 U/L Normal 16-61 [facility] Comment on above: Performed By: #### M 200.1000, L503.6005, L100.0100, L500.4050, L300.4310, L300.3900 ####[facility] [address] [place], [address] AST [Catalytic activity/Vol] 23 U/L Normal 15-37 [facility] Comment on above: Performed By: #### M 200.1000, L503.6005, L100.0100, L500.4050, L300.4310, L300.3900 ####[facility] [address] [place], [address] Bilirubin [Mass/Vol] 0.40 mg/dL Normal 0.20-1.00 [facility] Comment on above: Result Comment: For patients on eltrombopag therapy, use of Dimension Capitola TBIL is not recommended. Performed By: #### M 200.1000, L503.6005, L100.0100, L500.4050, L300.4310, L300.3900 ####[facility] [address] [place], [address] BUN/CRE 17.0 RATIO Normal 10-20 [facility] Comment on above: Performed By: #### M 200.1000, L503.6005, L100.0100, L500.4050, L300.4310, L300.3900 ####[facility] [address] [place], [address] CA,Total 9.3 mg/dL Normal 8.5-10.1 [facility] Comment on above: Performed By: #### M 200.1000, L503.6005, L100.0100, L500.4050, L300.4310, L300.3900 ####[facility] [address] [place], [address] Chloride [Moles/Vol] 103 mmol/L Normal 98-107 [facility] Comment on above: Performed By: #### M 200.1000, L503.6005, L100.0100, L500.4050, L300.4310, L300.3900 ####[facility] [address] [place], [address] CO2 [Moles/Vol] 29.0 mmol/L Normal 21.0-32.0 [facility] Comment on above: Performed By: #### M 200.1000, L503.6005, L100.0100, L500.4050, L300.4310, L300.3900 ####[facility] [address] [place], [place], [address] Creatinine [Mass/Vol] 1.00 mg/dL Normal 0.70-1.30 [facility] Comment on above: Result Comment: The validity of the calculated GFR GFRAA in patients over70 years has not been determined. Clinical correlation isessential. Performed By: #### M 200.1000, L503.6005, L100.0100, L500.4050, L300.4310, L300.3900 ####[facility] [address] [place], [place], [address] EST GFR - AA 96 mL/min Normal >60 [facility] Comment on above: Result Comment: Afri can Togolese GFR Calc Performed By: #### M 200.1000, L503.6005, L100.0100, L500.4050, L300.4310, L300.3900 ####[facility] [address] [place], [address] GAP 7 Normal 5-15 [facility] Comment on above: Performed By: #### M 200.1000, L503.6005, L100.0100, L500.4050, L300.4310, L300.3900 ####[facility] [address] [place], [place], [address] GFR/1.73 sq M.predicted among non-blacks MDRD (S/P/Bld) [Vol rate/Area] 79 mL/min/{1.73_m2} Normal >60 [facility] Comment on above: Result Comment: Non- GFR Calc Performed By: #### M 200.1000, L503.6005, L100.0100, L500.4050, L300.4310, L300.3900 ####[facility] [address] [place], [address] Globulin (S) [Mass/Vol] 4.7 g/dL High 2.2-4.[address] [facility] Comment on above: Performed By: #### M 200.1000, L503.6005, L100.0100, L500.4050, L300.4310, L300.3900 ####[facility] [address] [place], [address] Glucose [Mass/Vol] 116 mg/dL High 74-106 [facility] Comment on above: Result Comment: Fast ing Glucose result from 100 to 125 mg/dLsuggests IMPAIRED HOMEOSTASIS per A.D.A. criteria. Performed By: #### M 200.1000, L503.6005, L100.0100, L500.4050, L300.4310, L300.3900 ####[facility] [address] [place], [address] Potassium [Moles/Vol] 4.2 mmol/L Normal 3.5-5.1 [facility] Comment on above: Performed By: #### M 200.1000, L503.6005, L100.0100, L500.4050, L300.4310, L300.3900 ####[facility] [address] [place], [address] Sodium [Moles/Vol] 139 mmol/L Normal 136-145 [facility] Comment on above: Performed By: #### M 200.1000, L503.6005, L100.0100, L500.4050, L300.4310, L300.3900 ####[facility] [address] [place], [address] T PROT 8.0 g/dL Normal 6.4-8.2 [facility] Comment on above: Performed By: #### M 200.1000, L503.6005, L100.0100, L500.4050, L300.4310, L300.3900 ####[facility] [address] [place], [address] Urea nitrogen [Mass/Vol] 17 mg/dL Normal 7-18 [facility] Comment on above: Performed By: #### M 200.1000, L503.6005, L100.0100, L500.4050, L300.4310, L300.3900 ####[facility] [address] [place], [address] Emergency Department Summary on 08-25-2024 Emergency Department Summary Normal [facility] Glucose Ql (U)Ordered By: Morris Britton on 08-25-2024 Urine glucose detection Normal mg/dl Normal [facility] H AND P Exam - Hospitaliston 08-25-2024 H&P Exam - Hospitalist Normal [facility] Hyaline casts LM.LPF (Urine sed) [#/Area]Ordered By: Kenzie Britton on 08-25-2024 Urine sediment hyaline cast count by microscopy (number/low power field) 0-5 SEEN /lpf 0-5 [facility] International normalized rat io (INR) calculationOrdered By: Kenzie Britton on 08-25-2024 International normalized ratio (INR) calculation 1.0 [facility] Lactic Acidon 08-25-2024 Lactate [Moles/Vol] 2.3 mmol/L Invalid Interpretation Code 0.4-1.9 [facility] Comment on above: Result Comment: Crit ical Result(s) Called at: 22:04:26 08/25/2024 by: PRASANNA WALLER. Results read back by same. Performed By: #### L 503.6005 ####[facility] [address] [place], [place], [id number] Lactate [Moles/Vol] 2.5 mmol/L Invalid Interpretation Code 0.4-1.9 [facility] Comment on above: Order Comment: Y Result Comment: Crit ical Result(s) Called at: 20:15:49 08/25/2024 by: PRASANNA SHEPPARD. Results read back by same. Performed By: #### L 503.6005 ####[facility] [address] [place], [place], [address] Lactate [Moles/Vol] 3.1 mmol/L Invalid Interpretation Code 0.4-1.9 [facility] Comment on above: Order Comment: Y Result Comment: Crit ical Result(s) Called at: 17:32:55 08/25/2024 by: PRASANNA JIMENEZ. Results read back by same. Performed By: #### M 200.1000, L503.6005, L100.0100, L500.4050, L300.4310, L300.3900 ####[facility] [address] [place], [place], [phone] Lactic acid measurementOrder ed By: Kenzie Britton on 08-25-2024 Lactic acid measurement 2.3 mmol/L High 0.4-2.0 [facility] Leukocyte esterase Test stri p Ql (U)Ordered By: Kenzie Britton on 08-25-2024 Urine leukocyte esterase detection by dipstick 500 /ul High Negative [facility] M100.678on 08-25-2024 M100.678 Pending SARS-CoV-2 (COVID 19) Negative INFLUENZA A Negative INFLUENZA B Negative RSV PCR Negative Normal [facility] Comment on above: Performed By: #### L 400.0001, M100.678, M100.2200 ####[facility] [address] [place], [place], [phone] Microscopic analysis of urin e for red blood cells (RBC)Ordered By: Kenzie Britton on 08-25-2024 Microscopic analysis of urine for red blood cells (RBC) 5-10 SEEN /hpf 0-5 [facility] Partial Thromboplast Timeon 08-25-2024 aPTT Coag (Bld) [Time] 47.7 s High 24.1-36.2 [facility] Comment on above: Performed By: #### M 200.1000, L503.6005, L100.0100, L500.4050, L300.4310, L300.3900 ####[facility] [address] [place], [address] Protein Test strip Ql (U)Ord ered By: Kenzie Britton on 08-25-2024 Urine protein assay by test strip, semi-quantitative 500 mg/dl High Negative [facility] Prothrombin Time w/INRon INR Coag (PPP) [Relative time] 1.0 {INR} Normal [facility] Comment on above: Performed By: #### M 200.1000, L503.6005, L100.0100, L500.4050, L300.4310, L300.3900 ####[facility] [address] [place], [address] PT Coag (PPP) [Time] 13.3 s Normal 11.7-14.9 [facility] Comment on above: Performed By: #### M 200.1000, L503.6005, L100.0100, L500.4050, L300.4310, L300.3900 ####[facility] [address] [place], [address] Prothrombin timeOrdered By: Kenzie Britton on 08-25-2024 Prothrombin time 13.3 SECONDS 11.7-14.9 [facility] Specific gravity (U) [Rel de nsity]Ordered By: Kenzie Britton on 08-25-2024 Urine specific gravity measurement 1.025 1.002-1.030 [facility] Squamous epithelial cells de tection in urine sediment by light microscopyOrdered By: Kenzie Britton on 08-25-2024 Squamous epithelial cells detection in urine sediment by light microscopy 0 SEEN /hpf [facility] Urinalysis, Completeon 08-25 CAST,HYALINE 0-5 SEEN Normal 0-5 [facility] Comment on above: Order Comment: JASWINDER TER SPECIMEN Performed By: #### L 400.0001, M100.678, M100.2200 ####[facility] [address] [place], [address] RBC 5-10 SEEN Normal 0-5 [facility] Comment on above: Order Comment: JASWINDER TER SPECIMEN Performed By: #### L 400.0001, M100.678, M100.2200 ####[facility] [address] [place], [address] YEAST 2+ /hpf Normal None Seen [facility] Comment on above: Order Comment: JASWINDER TER SPECIMEN Performed By: #### L 400.0001, M100.678, M1.0 ####[facility] [address] [place], [address] BACTERIA 2+ /hpf Normal None Seen [facility] Comment on above: Order Comment: JASWINDER TER SPECIMEN Performed By: #### L 400.0001, M100.678, .2199 ####[facility] [address] [place], [address] WBC 25-50 SEEN Normal 0-5 [facility] Comment on above: Order Comment: JASWINDER TER SPECIMEN Performed By: #### L 400.0001, M100.678, M1.0 ####[facility] [address] [place], [address] EPI,SQUAMOUS 0 SEEN Normal 0-5 [facility] Comment on above: Order Comment: JASWINDER TER SPECIMEN Performed By: #### L 400.0001, M100.678, M1.0 ####[facility] [address] [place], [address] Mucus Ql (Urine sed) 0 SEEN Normal [facility] Comment on above: Order Comment: JASWINDER TER SPECIMEN Performed By: #### L 400.0001, M100.678, M1.2200 ####[facility] [address] [place], [address] Urine blood detectionOrdered By: Kenzie Britton on 08-25-2024 Urine blood detection 25 /ul High Negative [facility] Urine cultureOrdered By: Niko Britton on 08-25-2024 Urine culture Klebsiella pneumonia e sp pneum Abnormal [facility] Urine sediment bacteria coun t by microscopy (number/high power field)Ordered By: Kenzie Britton on 08-25-2024 Urine sediment bacteria count by microscopy (number/high power field) 2+ /hpf None Seen [facility] Urine total bilirubin detect ion by test stripOrdered By: Kenzie Britton on 08-25-2024 Urine total bilirubin detection by test strip Negative Negative [facility] Urobilinogen Ql (U)Ordered B y: Kenzie Britton on 08-25-2024 Urine urobilinogen measurement 1 mg/dl High Normal [facility] White blood cell countOrdere d By: Kenzie Britton on 08-25-2024 White blood cell count 25-50 SEEN /hpf 0-5 [facility] aPTT Coag (PPP) [Time]Ordere d By: Kenzie Britton on 08-25-2024 Activated partial thromboplastin time (aPTT) in platelet poor plasma by coagulation a 47.7 Seconds High 24.1-36.2 [facility] pH (U)Ordered By: Kenzie trujillo on 08-25-2024 Urine pH 6.0 5.0 - 8.0 [facility] BRIEF OP NOTon 07-29-2024 BRIEF OP NOT HNO ID: [id number] Author: ERIC GONZALEZ DO Service: Interventional Radiology Author Type: Physician Type: Brief Op Note Filed: 07/29/2024 12:17 Note Text: BRIEF OPERATIVE / PROCEDURE NOTE LOG ID: [id number] SURGERY/PROCEDURE DATE: 07/29/2024 INCISION/PROCEDURE START TIME: 11:13 AM INCISION CLOSE/PROCEDURE END TIME: 11:24 AM SURGEON(S)/PROCEDURALI ST(S) AND CLINICAL EDITOR(S): Surgeons and Role: * Eric Gonzalez DO - Primary No Additional Staff SURGERY/PROCEDURE(S): Suprapubic catheter placement ANESTHESIA: Procedural Sedation FINDINGS: 18F suprapubic catheter placed without issue. Please refer to full dictated radiology report for further details. ESTIMATED BLOOD LOSS: <5 mls SPECIMENS: None COMPLICATIONS: None PRE-OP/PRE-PROCEDURE DIAGNOSIS: Urinary retention POST-OP/POST-PROCEDURE DIAGNOSIS: Same as Preop SIGNATURE: Eric Gonzalez DO PATIENT NAME: Isaias Vega DATE: July 29, 2024 TIME: 12:16 PM Normal [facility] CBC panel Auto (Bld)on 07-29 Erythrocyte distribution width (RBC) [Ratio] 13.2 % Normal 11.5-15.0 [facility] Comment on above: Order Comment: Speci men Type: BLOOD SPECIMEN Ordering Facility: [facility] Address: [address] [place] [address] Performed By: #### 5 8410-2 #### [facility] CLIA [id number] [address] Hematocrit (Bld) [Volume fraction] 39.1 % Normal 39.0-51.0 [facility] Comment on above: Order Comment: Speci men Type: BLOOD SPECIMEN Ordering Facility: [facility] Address: [address] [place] [address] Performed By: #### 5 8410-2 #### [facility] CLIA [id number] [address] Hemoglobin (Bld) [Mass/Vol] 13.3 g/dL Normal 13.0-17.0 [facility] Comment on above: Order Comment: Speci men Type: BLOOD SPECIMEN Ordering Facility: [facility] Address: [address] [place] [address] Performed By: #### 5 8410-2 #### [facility] CLIA [id number] [address] MCH (RBC) [Entitic mass] 29.8 pg Normal 26.0-34.0 [facility] Comment on above: Order Comment: Speci men Type: BLOOD SPECIMEN Ordering Facility: [facility] Address: [address] [place] [address] Performed By: #### 5 8410-2 #### [facility] CLIA [id number] [address] MCHC (RBC) [Mass/Vol] 34.0 g/dL Normal 30.5-36.0 [facility] Comment on above: Order Comment: Speci men Type: BLOOD SPECIMEN Ordering Facility: [facility] Address: [address] [place] [address] Performed By: #### 5 8410-2 #### [facility] CLIA [id number] [address] [place] [address] [place] MCV (RBC) [Entitic vol] 87.5 fL Normal 80.0-100.0 [facility] Comment on above: Order Comment: Speci men Type: BLOOD SPECIMEN Ordering Facility: [facility] Address: [address] [place] [address] Performed By: #### 5 8410-2 #### [facility] CLIA [id number] [address] [place] [address] [place] Nucleated RBC (Bld) [#/Vol] 10*3/uL Normal <0.01 [facility] Comment on above: Order Comment: Speci men Type: BLOOD SPECIMEN Ordering Facility: [facility] Address: [address] [place] [address] Performed By: #### 5 8410-2 #### [facility] CLIA [id number] [address] [place] [address] [place] Platelet mean volume (Bld) [Entitic vol] 9.4 fL Normal 9.0-12.7 [facility] Comment on above: Order Comment: Speci men Type: BLOOD SPECIMEN Ordering Facility: [facility] Address: [address] [place] [address] Performed By: #### 5 8410-2 #### [facility] CLIA [id number] [address] [place] [address] [place] Platelets (Bld) [#/Vol] 253 10*3/uL Normal 150-400 [facility] Comment on above: Order Comment: Speci men Type: BLOOD SPECIMEN Ordering Facility: [facility] Address: [address] [place] [address] Performed By: #### 5 8410-2 #### [facility] CLIA [id number] [address] [place] RBC (Bld) [#/Vol] 4.47 10*6/uL Normal 4.20-6.00 [facility] Comment on above: Order Comment: Speci men Type: BLOOD SPECIMEN Ordering Facility: [facility] Address: [address] [place] [address] Performed By: #### 5 8410-2 #### [facility] CLIA [id number] [address] [place] WBC (Bld) [#/Vol] 7.72 10*3/uL Normal 3.70-11.00 [facility] Comment on above: Order Comment: Speci men Type: BLOOD SPECIMEN Ordering Facility: [facility] Address: [address] [place] [address] Performed By: #### 5 8410-2 #### [facility] CLIA [id number] [address] OF [facility] HISTORY PHYSICALon HISTORY PHYSICAL HNO ID: [id number] Author: ERIC GONZALEZ DO Service: Interventional Radiology Author Type: Physician Type: H&P Filed: 07/29/2024 10:54 Note Text: RADIOLOGY PROCEDURAL SEDATION HISTORY AND PHYSICAL EXAM SERVICE DATE: 07/29/2024 SERVICE TIME: 1040 Subjective HPI: This is a 68 year old male who presents with urinary retention for suprapubic catheter placement PROCEDURE SCHEDULED: Procedure(s) with comments: INSERTION CATHETER SUPRAPUBIC (Pending) - [facility] ORDER PLACED: PAST ANESTHESIA HISTORY: No history of adverse event PAST MEDICAL HISTORY Diagnosis Date Anxiety and depression CAD (coronary artery disease) [place] 2008 CVA (cerebral infarction) DM (diabetes mellitus) (HCC) Heart attack (HCC) HTN (hypertension) Hyperlipidemia PAD (peripheral artery disease) (HCC) Rectal cancer (HCC) 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 PAST SURGICAL HISTORY Procedure Laterality Date ANGIOPLASTY CAROTID ARTERY CARISA PC Rt side CABG (5) VENOUS GRAFTS AND ARTERIAL GRAFT(S) 2008 CC CORONARY STENT 01/03/15 EXCISION TONSIL LESIONS BILATERAL HERNIA REPAIR HX PAST SURGICAL HISTORY OF 2009 RCEA PICC LINE INSERT/CONSULT 12/07/2023 REVSC OPN/PRG FEM/POP W/ANGIOPLASTY UNI Right 07-01-15 REVSC OPN/PRG FEM/POP W/ANGIOPLASTY UNI 08-14-15 REVAK OPN/PRQ TIB/DIANNA W/ANGIOPLASTY UNI Right 07-01-15 REVAK OPN/PRQ TIB/DIANNA W/ANGIOPLASTY UNI 08-14-15 Prior to Admission medications as of 07/29/24 0913 Medication Sig Last Dose Taking tamsulosin (FLOMAX) 0.4 mg Take 0.8 mg by mouth once daily. 07/28/2024 at 0400 Yes amLODIPine (NORVASC) 10 mg tablet Take 1 tablet by mouth once daily. 07/29/2024 at 0730 Yes aspirin 81 mg chewable tablet Take 1 tablet by mouth once daily. 07/28/2024 at 1300 Yes carvedilol (COREG) 12.5 mg tablet Take 1 tablet by mouth two times a day. 07/29/2024 at 0730 Yes DULoxetine (CYMBALTA) 60 mg capsule Take 1 capsule by mouth daily at bedtime. 07/28/2024 at 1300 Yes insulin glargine 100 unit/mL (3 mL) Inject 30 Units subcutaneously every morning. 07/29/2024 at 0730 Yes insulin lispro 100 unit/mL injection Inject 3 Units subcutaneously with meals. 07/29/[address]24 [address] (PROTONIX) 40 mg tablet Take 1 tablet by mouth daily at 6 am. 07/28/2024 Yes rosuvastatin (CRESTOR) 40 mg tablet Take 1 tablet by mouth daily at bedtime. 07/28/2024 at 2000 Yes diphenoxylate-atropine (LOMOTIL) 2.5-0.025 mg per tablet Take 1 tablet by mouth four times a day as needed for diarrhea (high ostomy output) for up to 30 days. clopidogrel (PLAVIX) 75 mg tablet Take 1 tablet by mouth once daily. 07/23/2024 acetaminophen (TYLENOL) 325 mg tablet Take 2 tablets by mouth every 6 hours. Unknown dextrose (TRUEPLUS) 15 gram/32 mL oral gel Take 32 mL by mouth as needed. Unknown ipratropium-albuterol (DUONEB) 0.5 mg-3 mg(2.5 mg base)/3 mL nebu Inhale 3 mL as instructed every 6 hours as needed for wheezing/shortness of breath. Patient not taking: Reported on 06/04/2024 Unknown labetalol (NORMODYNE) 5 mg/mL injection Inject 1 mL intravenously every 4 hours as needed (SBP > 160 only if HR < 90). Patient not taking: Reported on 06/04/2024 Unknown lidocaine (SALONPAS) 4 % patch Apply 1 Patch as directed once daily. Unknown melatonin 3 mg tablet Take 2 tablets by mouth one time only for 1 dose. OLANZapine orally disintegrating (ZYPREXA ZYDIS) 5 mg disintegrating tablet Take 0.5 tablets by mouth every 8 hours as needed. Unknown ondansetron, PF, (ZOFRAN) 4 mg/2 mL soln Inject 4 mg intravenously every 6 hours as needed. Patient not taking: Reported on 06/04/2024 Unknown piperacillin-tazobacta m (ZOSYN) 3.375 gram/50 mL in dextrose (iso-osmotic) Inject 50 mL intravenously every 6 hours. Patient should start on January 01, 2024. Patient not taking: Reported on 06/04/2024 Unknown zinc oxide-cod liver oil (DESITIN 40%) 40 % paste Apply 1 application to affected area as needed. Unknown ALLERGIES No Known Allergies Objective PHYSICAL EXAM: The remainder of the physical exam is noncontributory. AIRWAY: Airway Visualization of Uvula: Yes Mouth opening greater than 2 fingerbreadths: Yes Neck Full Range of Motion: Yes LUNGS: Lungs clear to auscultation, Good diaphragmatic excursion CARDIAC: Normal S1 and S2; no rubs, murmurs, or gallops Assessment/Plan ASA Class: ASA Class: Patient with severe systemic disease Provisional Diagnosis/Treatment Plan: Urinary retention, here for suprapubic catheter placement Sedation Goal: Moderate SIGNATURE: Eric Gonzalez DO PATIENT NAME: Isaias Vega DATE: July 29, 2024 TIME: 10:53 AM [facility] IR SUPRAPUBIC TUBE PLACEMENT on 07-29-2024 IR SUPRAPUBIC TUBE PLACEMENT * * *Final Report* * * DATE OF EXAM: Jul 29 2024 11:24AM [facility] [id number] - IR SUPRAPUBIC TUBE PLACEMENT / PROCEDURE REASON: Cystoscopy-1 * * * * Physician Interpretation * * * * PROCEDURE: SUPRAPUBIC CATHETER PLACEMENT Procedural Personnel Attending physician(s): Eric Gonzalez D.O. Fellow physician(s): None Resident physician(s): None Advanced practice provider(s): None Medical Student(s): None Pre-procedure diagnosis: Urinary retention Post-procedure diagnosis: Same Indication: Bladder dysfunction Additional clinical history: None PROCEDURE SUMMARY - Ultrasound and fluoroscopy-guided placement of suprapubic bladder catheter - Additional procedure(s): None PROCEDURE DETAILS: Pre-procedure Consent: Risks, benefits, treatment options, potential complications and personnel to be involved were discussed (including the risks of radiation exposure, contrast and anesthesia administration, and any equipment needed for the procedure to ensure best possible outcome) with the patient and all questions were answered and consent was obtained prior to procedure. Premedicated for contrast allergy: n/a Transfusion of blood products: No Medication reconciliation: The patient's medications and allergies were reviewed in the electronic medical record and reconciled to the proposed procedure/treatment. Lisbeth-procedure discussion: The appropriate elements of the pre-procedure discussion, safety check list and sign-out were performed. Time out: A time out was performed immediately prior to procedure start with the nursing and interventional team, correctly identifying the name, date of , procedure, anatomy (including marking of site and side if applicable), patient position, procedure consent form, relevant diagnostic and radiology test results, antibiotic administration if applicable, safety precautions, and procedure-specific equipment needs. Start of procedure: 1113 End of procedure: 1124 Patient position: Supine Preparation: The site was prepared and draped using all elements of maximal sterile barrier technique including sterile gloves, sterile gown, cap, mask, large sterile sheet, sterile ultrasound probe cover, hand hygiene and cutaneous antisepsis. Antibiotics: Ceftriaxone Antibiotic infusion start time: 1054 Prophylactic antibiotic administered: Within 1 hour of procedure start time or 2 hours for vancomycin or fluoroquinolones Additional med: None Additional med: None Contrast Contrast agent: Omnipaque 300 Contrast volume (mL): 1 Image Guidance: Fluoroscopic and sonographic guidance with digital image storage Radiation Dose FLUOROSCOPIC RADIATION SUMMARY: Plane A, Air Kerma: 1.6 mGy Dose Area Product (DAP): Fluoro Time: 0:04 min:sec Radiation dose exceed 5 Gy: No If radiation dose exceeded 5 Gy, was counseling and instructional brochure provided: N/A Anesthesia/sedation Level of anesthesia/sedation: Moderate sedation (conscious sedation) Anesthesia/sedation administered by: Independent trained observer under attending supervision with continuous monitoring of the patient?s level of consciousness and physiologic status Total intra-service sedation time (minutes): 11 Local anesthesia: 1 % lidocaine Suprapubic catheter placement Local anesthesia was administered. The bladder was filled via an indwelling bladder catheter. Using imaging guidance as specified in the procedure summary, a needle was advanced into the bladder and a wire was placed. Serial dilation was performed and a suprapubic catheter was placed into the bladder through a peel away sheath. Suprapubic catheter placed: 18 [place] Findings: Appropriately positioned suprapubic catheter within the urinary bladder. Internal catheter securement: Balloon with 10 cc sterile water External catheter securement: Non-absorbable suture Additional Details Additional description of procedure: None Equipment details: None Number and Type of Removed Specimens: 0: N/A Estimated blood loss (mL): Less than 10 Standardized report: [id number] Complications There were no immediate complications and no other complications. Conclusion The patient was comfortable and was transferred to the recovery room in stable condition. The procedure was performed by the: attending radiologist, without an engineer first assistant. The attending radiologist performed the following procedural activities: Entire procedure IMPRESSION: IMAGE-GUIDED 18 KINYARWANDA SUPRAPUBIC CATHETER PLACEMENT. Plan: Catheter may be allowed to drain passively into bag until next catheter exchange. Catheter exchange by experienced clinician after 8 weeks as needed. Attestation Signer name: Eric Gonzalez DO I attest that I was present for the entire procedure. I reviewed the stored images and agree with the report as wr (more content not included)... Normal [facility] PT panel Coag (PPP)on 2023 INR Coag (PPP) [Relative time] 1.0 {INR} Normal 0.9-1.3 [facility] Comment on above: Order Comment: Speci men Type: BLOOD SPECIMEN Ordering Facility: [facility] Address: [address] [place] [address] Result Comment: Cassandra min K Antagonist (VKA) Therapeutic Range: INR 2 to 3 (Target INR of 2.5) Note: For patients treated with VKA drugs, such as warfarin, the [employer] 2012 Guideline recommends a therapeutic INR range of 2 to 3 (target INR of 2.5). This recommendation includes high-risk patients with antiphospholipid syndrome with previous arterial or venous thromboembolism, current-generation mechanical or bioprosthetic aortic heart valve replacement. Note: Patients with mechanical aortic valve replacement and additional risk factors for thromboembolic events (atrial fibrillation, previous thromboembolism, LV dysfunction, hypercoagulable conditions) or an older generation mechanical AVR (i.e., ball in-Cage) or any mechanical MVR should have a INR therapeutic range of 2.5 to 3.5 (target INR of 3). Yang GH, et al. Chest 2012, 141:7S-47S Enoch RA, et al. [facility] 2017, 70: 252-289 Performed By: #### 3 4528-0 #### [facility] CLIA [id number] [address] [place] PT Coag (PPP) [Time] 10.9 s Normal 9.7-13.0 [facility] Comment on above: Order Comment: Speci men Type: BLOOD SPECIMEN Ordering Facility: [facility] Address: [address] [place] [address] Performed By: #### 3 4528-0 #### [facility] CLIA [id number] [address] OF [facility] Zoltan 06-28-2024 ARTIN Telephone (VITA) ISAIAS VEGA ([id number]) 1955 M Date Time Provider Department 06/28/24 FLOWER VILLANUEVA During your visit today, we recorded the following information about you: Flower Villanueva RN 06/28/2024 2:25 PM Signed Flight Line Service Attendant spoke with pt regarding his upcoming visit with Dr Galarza on 07/03. Pt verbalized that he would like to discuss reversal surgery, but is not feeling well and does not know if he can make the hour drive. Appt changed to a virtual appt. Allergies As of Date: 06/28/2024 (No Known Allergies) Date Reviewed: 06/04/2024 Reviewed by: Afsaneh Nolasco MA - Fully Assessed Prescriptions as of 06/28/2024 - diphenoxylate-atropine (LOMOTIL) 2.5-0.025 mg per tablet Take 1 tablet by mouth four times a day as needed for diarrhea (high ostomy output) for up to 30 days. - tamsulosin (FLOMAX) 0.4 mg Take 0.8 mg by mouth once daily. - clopidogrel (PLAVIX) 75 mg tablet Take 1 tablet by mouth once daily. - acetaminophen (TYLENOL) 325 mg tablet Take 2 tablets by mouth every 6 hours. - amLODIPine (NORVASC) 10 mg tablet Take 1 tablet by mouth once daily. - aspirin 81 mg chewable tablet Take 1 tablet by mouth once daily. - carvedilol (COREG) 12.5 mg tablet Take 1 tablet by mouth two times a day. - dextrose (TRUEPLUS) 15 gram/32 mL oral gel Take 32 mL by mouth as needed. - DULoxetine (CYMBALTA) 60 mg capsule Take 1 capsule by mouth daily at bedtime. - insulin glargine 100 unit/mL (3 mL) Inject 30 Units subcutaneously every morning. - insulin lispro 100 unit/mL injection Inject 3 Units subcutaneously with meals. - ipratropium-albuterol (DUONEB) 0.5 mg-3 mg(2.5 mg base)/3 mL nebu Inhale 3 mL as instructed every 6 hours as needed for wheezing/shortness of breath. - labetalol (NORMODYNE) 5 mg/mL injection Inject 1 mL intravenously every 4 hours as needed (SBP > 160 only if HR < 90). - lidocaine (SALONPAS) 4 % patch Apply 1 Patch as directed once daily. - melatonin 3 mg tablet Take 2 tablets by mouth one time only for 1 dose. - OLANZapine orally disintegrating (ZYPREXA ZYDIS) 5 mg disintegrating tablet Take 0.5 tablets by mouth every 8 hours as needed. - ondansetron, PF, (ZOFRAN) 4 mg/2 mL soln Inject 4 mg intravenously every 6 hours as needed. - pantoprazole DR (PROTONIX) 40 mg tablet Take 1 tablet by mouth daily at 6 am. - piperacillin-tazobacta m (ZOSYN) 3.375 gram/50 mL in dextrose (iso-osmotic) Inject 50 mL intravenously every 6 hours. Patient should start on January 01, 2024. - rosuvastatin (CRESTOR) 40 mg tablet Take 1 tablet by mouth daily at bedtime. - zinc oxide-cod liver oil (DESITIN 40%) 40 % paste Apply 1 application to affected area as needed. Problem List As Of Date 06/28/2024 Noted Resolved Diabetes mellitus type 2, uncontrolled (HCC) [I*01/22/2013 HTN (hypertension) [I10] 01/22/2013 Hyperlipidemia [E78.5] 01/22/2013 Occlusion and stenosis of unspecified carotid a*05/11/2015 PAD (peripheral artery disease) ([facility]) [I73.9] 05/11/2015 Right lumbar radiculopathy [M54.16] 10/06/2015 Low back pain with right-sided sciatica [M54.41]10/06/2015 Pain in right hip [M25.551] 10/06/2015 Rectal cancer (HCC) [C20] 07/23/2019 CAD (coronary artery disease) [I25.10] 05/26/2020 Stenosis of right carotid artery [I65.21] 05/26/2020 History of CVA in adulthood [Z86.73] 05/26/2020 Neuropathy [G62.9] 05/26/2020 GERD (gastroesophageal reflux disease) [K21.9] 05/26/2020 Anxiety and depression [F41.9, F32.A] 05/26/2020 Chronic renal insufficiency [N18.9] 05/26/2020 ALEJANDRO on CPAP [G47.33] 05/26/2020 Acute postoperative pain [G89.18] 05/26/[address] ([facility]) [Z93.3] 05/26/2020 prison (current) use of 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/anti*1 Small bowel obstruction (HCC) [K56.609] 12/02/2023 12/04/2023 Severe protein-calorie malnutrition (HCC) [E43] 12/04/2023 Type 2 diabetes mellitus with hyperglycemia, wi*12/06/2023 S/P small bowel resection [Z90.49] 12/08/2023 Feeding difficulties [R63.30] 12/08/2023 On total parenteral nutrition (TPN) [Z78.9] 12/08/2023 Therapeutic drug monitoring [Z51.81] 12/08/2023 Severe protein-calorie malnutrition (Kim: les*12/08/2023 Insulin dose changed (HCC) [Z79.4] 12/09/2023 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] 12/10/2023 Hypophosphataemia [E83.39] 12/12/2023 Hypomagnesemia [E83.42] 12/13/2023 Ileus (HCC) [K56.7] 12/13/2023 Hyponatremia [E87.1] 12/15/2023 12/19/2023 Pelvic abscess in male (HCC) [K65.1] 12/15/2023 History of rectal cancer [Z85.048] 12/15/2023 Enterococcal infection [A49.1] 12/15/2023 Delirium [R41.0] 12/18/2023 Ischemia, bowel (HCC) [K55.9] 12/18/2023 On mechanically assisted ventilation (HCC) [Z99*12/18/2023 Acute postoperative respiratory insufficiency [*12/18/2023 Mesenteric ischemia (HCC) [K55.9] 12/18/2023 Electrolyte imbalance [E87.8] 12/19/2023 Frail elderly [R54] 08 (more content not included)... Normal [facility] Zoltan 06-27-2024 CNPN Telephone (GENDreamscape BlueI) ISAIAS VEGA ([id number]) 1955 Date Time Provider Department 06/27/24 GREGORIO VILLALOBOS During your visit today, we recorded the following information about you: Gregorio Villalobos RN 06/27/2024 9:45 AM Signed [facility] SPECIALTY CARE COORDINATION TELEPHONE ENCOUNTER LVM with call back number after returning pts call Allergies As of Date: 06/27/2024 (No Known Allergies) Date Reviewed: 06/04/2024 Reviewed by: Afsaneh Nolasco MA - Fully Assessed Reason for Visit: Returning Patient's Call [[id number]] Prescriptions as of 06/27/2024 - diphenoxylate-atropine (LOMOTIL) 2.5-0.025 mg per tablet Take 1 tablet by mouth four times a day as needed for diarrhea (high ostomy output) for up to 30 days. - tamsulosin (FLOMAX) 0.4 mg Take 0.8 mg by mouth once daily. - clopidogrel (PLAVIX) 75 mg tablet Take 1 tablet by mouth once daily. - acetaminophen (TYLENOL) 325 mg tablet Take 2 tablets by mouth every 6 hours. - amLODIPine (NORVASC) 10 mg tablet Take 1 tablet by mouth once daily. - aspirin 81 mg chewable tablet Take 1 tablet by mouth once daily. - carvedilol (COREG) 12.5 mg tablet Take 1 tablet by mouth two times a day. - dextrose (TRUEPLUS) 15 gram/32 mL oral gel Take 32 mL by mouth as needed. - DULoxetine (CYMBALTA) 60 mg capsule Take 1 capsule by mouth daily at bedtime. - insulin glargine 100 unit/mL (3 mL) Inject 30 Units subcutaneously every morning. - insulin lispro 100 unit/mL injection Inject 3 Units subcutaneously with meals. - ipratropium-albuterol (DUONEB) 0.5 mg-3 mg(2.5 mg base)/3 mL nebu Inhale 3 mL as instructed every 6 hours as needed for wheezing/shortness of breath. - labetalol (NORMODYNE) 5 mg/mL injection Inject 1 mL intravenously every 4 hours as needed (SBP > 160 only if HR < 90). - lidocaine (SALONPAS) 4 % patch Apply 1 Patch as directed once daily. - melatonin 3 mg tablet Take 2 tablets by mouth one time only for 1 dose. - OLANZapine orally disintegrating (ZYPREXA ZYDIS) 5 mg disintegrating tablet Take 0.5 tablets by mouth every 8 hours as needed. - ondansetron, PF, (ZOFRAN) 4 mg/2 mL soln Inject 4 mg intravenously every 6 hours as needed. - pantoprazole DR (PROTONIX) 40 mg tablet Take 1 tablet by mouth daily at 6 am. - piperacillin-tazobacta m (ZOSYN) 3.375 gram/50 mL in dextrose (iso-osmotic) Inject 50 mL intravenously every 6 hours. Patient should start on January 01, 2024. - rosuvastatin (CRESTOR) 40 mg tablet Take 1 tablet by mouth daily at bedtime. - zinc oxide-cod liver oil (DESITIN 40%) 40 % paste Apply 1 application to affected area as needed. Problem List As Of Date 06/27/2024 Noted Resolved Diabetes mellitus type 2, uncontrolled ([facility]) [I*01/22/2013 HTN (hypertension) [I10] 01/22/2013 Hyperlipidemia [E78.5] 01/22/2013 Occlusion and stenosis of unspecified carotid a*05/11/2015 PAD (peripheral artery disease) ([facility]) [I73.9] 05/11/2015 Right lumbar radiculopathy [M54.16] 10/06/2015 Low back pain with right-sided sciatica [M54.41]10/06/2015 Pain in right hip [M25.551] 10/06/2015 Rectal cancer ([facility]) [C20] 07/23/2019 CAD (coronary artery disease) [I25.10] 05/26/2020 Stenosis of right carotid artery [I65.21] 05/26/2020 History of CVA in adulthood [Z86.73] 05/26/2020 Neuropathy [G62.9] 05/26/2020 GERD (gastroesophageal reflux disease) [K21.9] 05/26/2020 Anxiety and depression [F41.9, F32.A] 05/26/2020 Chronic renal insufficiency [N18.9] 05/26/2020 ALEJANDRO on CPAP [G47.33] 05/26/2020 Acute postoperative pain [G89.18] 05/26/[address] ([facility]) [Z93.3] 05/26/2020 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/anti*1 Small bowel obstruction ([facility]) [K56.609] 12/02/2023 12/04/2023 Severe protein-calorie malnutrition (HCC) [E43] 12/04/2023 Type 2 diabetes mellitus with hyperglycemia, wi*12/06/2023 S/P small bowel resection [Z90.49] 12/08/2023 Feeding difficulties [R63.30] 12/08/2023 On total parenteral nutrition (TPN) [Z78.9] 12/08/2023 Therapeutic drug monitoring [Z51.81] 12/08/2023 Severe protein-calorie malnutrition (Kim: les*12/08/2023 Insulin dose changed (HCC) [Z79.4] 12/09/2023 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] 12/10/2023 Hypophosphataemia [E83.39] 12/12/2023 Hypomagnesemia [E83.42] 12/13/2023 Ileus (HCC) [K56.7] 12/13/2023 Hyponatremia [E87.1] 12/15/2023 12/19/2023 Pelvic abscess in male (HCC) [K65.1] 12/15/2023 History of rectal cancer [Z85.048] 12/15/2023 Enterococcal infection [A49.1] 12/15/2023 Delirium [R41.0] 12/18/2023 Ischemia, bowel (HCC) [K55.9] 12/18/2023 On mechanically assisted ventilation (HCC) [Z99*12/18/2023 Acute postoperative respiratory insufficiency [*12/18/2023 Mesenteric ischemia (HCC) [K55.9] 12/18/2023 Electrolyte imbalance [E87.8] 12/19/2023 Frail elderly [R54] 03/12/2024 Urinary retention [R33.9] 03/12/2024 Encounter Sta (more content not included)... Normal [facility] CBC W Auto Differential pane l (Bld)on 06-17-2024 Basophils (Bld) [#/Vol] 0.03 10*3/uL Normal <0.11 [facility] Comment on above: Order Comment: Speci men Type: BLOOD SPECIMENOrdering Facility: [facility] Address: [address] [place] [address] Performed By: #### 5 7021-8 ####[facility] [id number] [place] [address] [place] Basophils/100 WBC (Bld) 0.4 % Normal [facility] Comment on above: Order Comment: Speci men Type: BLOOD SPECIMENOrdering Facility: [facility] Address: [address] [place] [address] Performed By: #### 5 7021-8 ####[facility] [id number] [place] [address] [place] Differential cell count method Nom (Bld) Auto Normal [facility] Comment on above: Order Comment: Speci men Type: BLOOD SPECIMENOrdering Facility: [facility] Address: [address] [place] [address] Performed By: #### 5 7021-8 ####[facility] ERA [id number] [place] [address] [place] Eosinophils (Bld) [#/Vol] 0.14 10*3/uL Normal <0.46 [facility] Comment on above: Order Comment: Speci men Type: BLOOD SPECIMENOrdering Facility: [facility] Address: [address] [place] [address] Performed By: #### 5 7021-8 ####[facility] [id number] [place] [address] [place] Eosinophils/100 WBC (Bld) 1.7 % Normal [facility] Comment on above: Order Comment: Speci men Type: BLOOD SPECIMENOrdering Facility: [facility] Address: [address] [place] [address] Performed By: #### 5 7021-8 ####[facility]ITAL[facility]CLIA [id number] [place] [id number] [place] Erythrocyte distribution width (RBC) [Ratio] 13.3 % Normal 11.5-15.0 [facility] Comment on above: Order Comment: Speci men Type: BLOOD SPECIMENOrdering Facility: [facility] Address: [address] [place] [address] Performed By: #### 5 7021-8 ####[facility]OS[facility]ITALNCHARVEY [id number] [place] [address] [place] Hematocrit (Bld) [Volume fraction] 37.7 % Low 39.0-51.0 [facility] Comment on above: Order Comment: Speci men Type: BLOOD SPECIMENOrdering Facility: [facility] Address: [address] [place] [address] Performed By: #### 5 7021-8 ####[facility]ITALNCBRIGH[facility] [id number] [place] [address] [place] Hemoglobin (Bld) [Mass/Vol] 12.4 g/dL Low 13.0-17.0 [facility] Comment on above: Order Comment: Speci men Type: BLOOD SPECIMENOrdering Facility: [facility] Address: [address] [place] [address] Performed By: #### 5 7021-8 ####[facility]ITALNCLIA [id number] [place] [address] [place] Immature granulocytes (Bld) [#/Vol] 0.05 10*3/uL Normal <0.10 [facility] Comment on above: Order Comment: Speci men Type: BLOOD SPECIMENOrdering Facility: [facility] Address: [address] [place] [address] Performed By: #### 5 7021-8 ####[facility]ITALNCLIA [id number] [place] [address] [place] Immature granulocytes/100 WBC (Bld) 0.6 % Normal [facility] Comment on above: Order Comment: Speci men Type: BLOOD SPECIMENOrdering Facility: [facility] Address: [address] [place] [address] Performed By: #### 5 7021-8 ####[facility] SYDNEYNCGALLO [id number] [place] [address] [place] Lymphocytes (Bld) [#/Vol] 0.97 10*3/uL Low 1.00-4.00 [facility] Comment on above: Order Comment: Speci men Type: BLOOD SPECIMENOrdering Facility: [facility] Address: [address] [place] [address] Performed By: #### 5 7021-8 ####[facility] HOSPITALVIGNESHSteffi [id number] [place] [address] [place] Lymphocytes/100 WBC (Bld) 12.0 % Normal [facility] Comment on above: Order Comment: Speci men Type: BLOOD SPECIMENOrdering Facility: [facility] Address: [address] [place] [address] Performed By: #### 5 7021-8 ####[facility] HOSPITALNCHARVEYSteffi [id number] [place] [address] [place] MCH (RBC) [Entitic mass] 29.1 pg Normal 26.0-34.0 [facility] Comment on above: Order Comment: Speci men Type: BLOOD SPECIMENOrdering Facility: [facility] Address: [address] [place] [address] Performed By: #### 5 7021-8 ####[facility] HOSPITALNCLIA [id number] [place] [address] [place] MCHC (RBC) [Mass/Vol] 32.9 g/dL Normal 30.5-36.0 [facility] Comment on above: Order Comment: Speci men Type: BLOOD SPECIMENOrdering Facility: [facility] Address: [address] [place] [address] Performed By: #### 5 7021-8 ####[facility] HOSPITALNCLIA [id number] [place] [address] [place] MCV (RBC) [Entitic vol] 88.5 fL Normal 80.0-100.0 [facility] Comment on above: Order Comment: Speci men Type: BLOOD SPECIMENOrdering Facility: [facility] Address: [address] [place] [address] Performed By: #### 5 7021-8 ####[facility] [id number] [place] [address] [place] Monocytes (Bld) [#/Vol] 0.72 10*3/uL Normal <0.87 [facility] Comment on above: Order Comment: Speci men Type: BLOOD SPECIMENOrdering Facility: [facility] Address: [address] [place] [address] Performed By: #### 5 7021-8 ####[facility] [id number] [place] [address] [place] Monocytes/100 WBC (Bld) 8.9 % Normal [facility] Comment on above: Order Comment: Speci men Type: BLOOD SPECIMENOrdering Facility: [facility] Address: [address] [place] [address] Performed By: #### 5 7021-8 ####[facility] HOSPITALLIA [id number] [place] [address] [place] Neutrophils (Bld) [#/Vol] 6.18 10*3/uL Normal 1.45-7.50 [facility] Comment on above: Order Comment: Speci men Type: BLOOD SPECIMENOrdering Facility: [facility] Address: [address] [place] [address] Performed By: #### 5 7021-8 ####[facility]ITALNCLIA [id number] [place] [address] [place] Neutrophils/100 WBC (Bld) 76.4 % Normal [facility] Comment on above: Order Comment: Speci men Type: BLOOD SPECIMENOrdering Facility: [facility] Address: [address] [place] [address] Performed By: #### 5 7021-8 ####[facility] HOSPITALNCSteffi [id number] [place] [address] [place] Nucleated RBC (Bld) [#/Vol] 10*3/uL Normal <0.01 [facility] Comment on above: Order Comment: Speci men Type: BLOOD SPECIMENOrdering Facility: [facility] Address: [address] [place] [address] Performed By: #### 5 7021-8 ####[facility] HOSPITALNCHARVEY [id number] [place] [address] [place] Nucleated RBC/100 WBC (Bld) [Ratio] 0.0 /100 WBC Normal [facility] Comment on above: Order Comment: Speci men Type: BLOOD SPECIMENOrdering Facility: [facility] Address: [address] [place] [address] Performed By: #### 5 7021-8 ####[facility] HOS[facility]ITALNCLIA [id number] [place] [address] [place] Platelet mean volume (Bld) [Entitic vol] 9.4 fL Normal 9.0-12.7 [facility] Comment on above: Order Comment: Speci men Type: BLOOD SPECIMENOrdering Facility: [facility] Address: [address] [place] [address] Performed By: #### 5 7021-8 ####[facility]ITALNCLIA [id number] [place] [address] [place] Platelets (Bld) [#/Vol] 289 10*3/uL Normal 150-400 [facility] Comment on above: Order Comment: Speci men Type: BLOOD SPECIMENOrdering Facility: [facility] Address: [address] [place] [address] Performed By: #### 5 7021-8 ####[facility] ANA MITZYWNCLIA [id number] [place] [address] [place] RBC (Bld) [#/Vol] 4.26 10*6/uL Normal 4.20-6.00 [facility] Comment on above: Order Comment: Speci men Type: BLOOD SPECIMENOrdering Facility: [facility] Address: [address] [place] [address] Performed By: #### 5 7021-8 ####[facility] MITZYCOLDSPRINGNCLIA [id number] [place] [address] [place] WBC (Bld) [#/Vol] 8.09 10*3/uL Normal 3.70-11.00 [facility] Comment on above: Order Comment: Speci men Type: BLOOD SPECIMENOrdering Facility: [facility] Address: [address] [place] [address] Performed By: #### 5 7021-8 ####[facility]ITALNCLIA [id number] [place] [address] [place] PT panel Coag (PPP)on 2023 INR Coag (PPP) [Relative time] 1.0 {INR} Normal 0.9-1.3 [facility] Comment on above: Order Comment: Speci men Type: BLOOD SPECIMENOrdering Facility: [facility] Address: [address] [place] [address] Result Comment: Cassandra min K Antagonist (VKA) Therapeutic Range: INR 2 to 3 (Target INR of 2.5) Note: For patients treated with VKA drugs, such as warfarin, the [employer] 2012 Guideline recommends a therapeutic INR range of 2 to 3 (target INR of 2.5). This recommendation includes high-risk patients with antiphospholipid syndrome with previous arterial or venous thromboembolism, current-generation mechanical or bioprosthetic aortic heart valve replacement. Note: Patients with mechanical aortic valve replacement and additional risk factors for thromboembolic events (atrial fibrillation, previous thromboembolism, LV dysfunction, hypercoagulable conditions) or an older generation mechanical AVR (i.e., ball in-Cage) or any mechanical MVR should have a INR therapeutic range of 2.5 to 3.5 (target INR of 3). Yang GH, et al. Chest 2012, 141:7S-47S Enoch RA, et al. [facility] 2017, 70: 252-289 Performed By: #### 3 4528-0 ####[facility] [id number] [place] [address] [place] PT Coag (PPP) [Time] 10.3 s Normal <13.1 [facility] Comment on above: Order Comment: Speci men Type: BLOOD SPECIMENOrdering Facility: [facility] Address: [address] [place] [address] Performed By: #### 3 4528-0 ####[facility]OSPITALNCBRIGHAM [facility] [id number] [address] [place] Zoltan 06-11-2024 GILLIAN Telephone (DARWIN) ISAIAS VEGA ([id number]) 1955 M Date Time Provider Department 06/11/24 PEBBLES BARFIELD During your visit today, we recorded the following information about you: Dionne Clinton, RN 06/11/2024 2:21 PM Signed Patient calling to see about how to schedule the IR SPT. I called and left a message on IR Voicemail to help get scheduled. Called patient back and left a message about that I reached out to IR, and gave their number to call back if he misses their call. IR #[phone]. Allergies As of Date: 06/11/2024 (No Known Allergies) Date Reviewed: 06/04/2024 Reviewed by: Afsaneh Nolasco MA - Fully Assessed Reason for Visit: IR SPT scheduling [Other] Prescriptions as of 06/11/2024 - diphenoxylate-atropine (LOMOTIL) 2.5-0.025 mg per tablet Take 1 tablet by mouth four times a day as needed for diarrhea (high ostomy output) for up to 30 days. - tamsulosin (FLOMAX) 0.4 mg Take 0.8 mg by mouth once daily. - clopidogrel (PLAVIX) 75 mg tablet Take 1 tablet by mouth once daily. - acetaminophen (TYLENOL) 325 mg tablet Take 2 tablets by mouth every 6 hours. - amLODIPine (NORVASC) 10 mg tablet Take 1 tablet by mouth once daily. - aspirin 81 mg chewable tablet Take 1 tablet by mouth once daily. - carvedilol (COREG) 12.5 mg tablet Take 1 tablet by mouth two times a day. - dextrose (TRUEPLUS) 15 gram/32 mL oral gel Take 32 mL by mouth as needed. - DULoxetine (CYMBALTA) 60 mg capsule Take 1 capsule by mouth daily at bedtime. - insulin glargine 100 unit/mL (3 mL) Inject 30 Units subcutaneously every morning. - insulin lispro 100 unit/mL injection Inject 3 Units subcutaneously with meals. - ipratropium-albuterol (DUONEB) 0.5 mg-3 mg(2.5 mg base)/3 mL nebu Inhale 3 mL as instructed every 6 hours as needed for wheezing/shortness of breath. - labetalol (NORMODYNE) 5 mg/mL injection Inject 1 mL intravenously every 4 hours as needed (SBP > 160 only if HR < 90). - lidocaine (SALONPAS) 4 % patch Apply 1 Patch as directed once daily. - melatonin 3 mg tablet Take 2 tablets by mouth one time only for 1 dose. - OLANZapine orally disintegrating (ZYPREXA ZYDIS) 5 mg disintegrating tablet Take 0.5 tablets by mouth every 8 hours as needed. - ondansetron, PF, (ZOFRAN) 4 mg/2 mL soln Inject 4 mg intravenously every 6 hours as needed. - pantoprazole DR (PROTONIX) 40 mg tablet Take 1 tablet by mouth daily at 6 am. - piperacillin-tazobacta m (ZOSYN) 3.375 gram/50 mL in dextrose (iso-osmotic) Inject 50 mL intravenously every 6 hours. Patient should start on January 01, 2024. - rosuvastatin (CRESTOR) 40 mg tablet Take 1 tablet by mouth daily at bedtime. - zinc oxide-cod liver oil (DESITIN 40%) 40 % paste Apply 1 application to affected area as needed. Problem List As Of Date 06/11/2024 Noted Resolved Diabetes mellitus type 2, uncontrolled (HCC) [I*01/22/2013 HTN (hypertension) [I10] 01/22/2013 Hyperlipidemia [E78.5] 01/22/2013 Occlusion and stenosis of unspecified carotid a*05/11/2015 PAD (peripheral artery disease) ([facility]) [I73.9] 05/11/2015 Right lumbar radiculopathy [M54.16] 10/06/2015 Low back pain with right-sided sciatica [M54.41]10/06/2015 Pain in right hip [M25.551] 10/06/2015 Rectal cancer ([facility]) [C20] 07/23/2019 CAD (coronary artery disease) [I25.10] 05/26/2020 Stenosis of right carotid artery [I65.21] 05/26/2020 History of CVA in adulthood [Z86.73] 05/26/2020 Neuropathy [G62.9] 05/26/2020 GERD (gastroesophageal reflux disease) [K21.9] 05/26/2020 Anxiety and depression [F41.9, F32.A] 05/26/2020 Chronic renal insufficiency [N18.9] 05/26/2020 ALEJANDRO on CPAP [G47.33] 05/26/2020 Acute postoperative pain [G89.18] 05/26/[address] ([facility]) [Z93.3] 05/26/2020 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/anti*1 Small bowel obstruction (HCC) [K56.609] 12/02/2023 12/04/2023 Severe protein-calorie malnutrition (HCC) [E43] 12/04/2023 Type 2 diabetes mellitus with hyperglycemia, wi*12/06/2023 S/P small bowel resection [Z90.49] 12/08/2023 Feeding difficulties [R63.30] 12/08/2023 On total parenteral nutrition (TPN) [Z78.9] 12/08/2023 Therapeutic drug monitoring [Z51.81] 12/08/2023 Severe protein-calorie malnutrition (Kim: les*12/08/2023 Insulin dose changed (HCC) [Z79.4] 12/09/2023 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 Normal [facility] CNOVon 06-04-2024 CNOV Office Visit (VITA ) ISAIAS VEGA ([id number]) 1955 M Date Time Provider Department 06/04/24 3:00 PM MELANIE YANG During your visit today, we recorded the following information about you: Weight Height 64.4 kg 1.689 m Citlali Mejía APRN.CNP 06/04/2024 3:39 PM Attested Attestation signed by Melanie Yang APRN.CNP at 06/04/2024 3:39 PM Attending Note I have personally performed a face to face assessment of the patient and have reviewed the ADRIÁN note. I performed a substantive portion of the visit including all aspects of the following. My griggs findings include: Agree with the below. Start fiber go back to imodium follow up in 2 weeks. Other additions or changes: None Signature: Melanie Yang APRN.CNP Date: 06/04/2024 Time: 3:38 PM COLORECTAL SURGERY June 03, 2024 Isaias Vega 68 year old Chief Complaint: Stoma issues History of Present Illness: Isaias Vega is a 68 year old male that has history of rectal cancer s/p APR and end colostomy (05/26/[address] Galarza), ex lap with end ileostomy creation for cecal necrosis (12/07/[address] Guerrero) c/b mesenteric ischemia require addition ex lap and abthera (12/18/2023 and 12/20/[address] Forest Kimble). The patient presents today with stoma issues. 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 PAST SURGICAL HISTORY Procedure Laterality Date ANGIOPLASTY CAROTID ARTERY CARISA PC Rt side CABG (5) VENOUS GRAFTS AND ARTERIAL GRAFT(S) 2008 CC CORONARY STENT 01/03/15 EXCISION TONSIL LESIONS BILATERAL HERNIA REPAIR HX PAST SURGICAL HISTORY OF 2009 RCEA PICC LINE INSERT/CONSULT 12/07/2023 REVSC OPN/PRG FEM/POP W/ANGIOPLASTY [facility] Right 07-01-15 REVSC OPN/PRG FEM/POP W/ANGIOPLASTY [facility] 08-14-15 REVSC OPN/PRQ TIB/DIANNA W/ANGIOPLASTY [facility] Right 07-01-15 REVSC OPN/PRQ TIB/DIANNA W/ANGIOPLASTY [facility] 08-14-15 Current Outpatient Medications Medication Sig Dispense Refill tamsulosin (FLOMAX) 0.4 mg Take 0.8 mg by mouth once daily. clopidogrel (PLAVIX) 75 mg tablet Take 1 tablet by mouth once daily. acetaminophen (TYLENOL) 325 mg tablet Take 2 tablets by mouth every 6 hours. amLODIPine (NORVASC) 10 mg tablet Take 1 tablet by mouth once daily. aspirin 81 mg chewable tablet Take 1 tablet by mouth once daily. carvedilol (COREG) 12.5 mg tablet Take 1 tablet by mouth two times a day. dextrose (TRUEPLUS) 15 gram/32 mL oral gel Take 32 mL by mouth as needed. DULoxetine (CYMBALTA) 60 mg capsule Take 1 capsule by mouth daily at bedtime. insulin glargine 100 unit/mL (3 mL) Inject 30 Units subcutaneously every morning. insulin lispro 100 unit/mL injection Inject 3 Units subcutaneously with meals. ipratropium-albuterol (DUONEB) 0.5 mg-3 mg(2.5 mg base)/3 mL nebu Inhale 3 mL as instructed every 6 hours as needed for wheezing/shortness of breath. labetalol (NORMODYNE) 5 mg/mL injection Inject 1 mL intravenously every 4 hours as needed (SBP > 160 only if HR < 90). lidocaine (SALONPAS) 4 % patch Apply 1 Patch as directed once daily. melatonin 3 mg tablet Take 2 tablets by mouth one time only for 1 dose. 2 tablet 0 OLANZapine orally disintegrating (ZYPREXA ZYDIS) 5 mg disintegrating tablet Take 0.5 tablets by mouth every 8 hours as needed. ondansetron, PF, (ZOFRAN) 4 mg/2 mL soln Inject 4 mg intravenously every 6 hours as needed. pantoprazole DR (PROTONIX) 40 mg tablet Take 1 tablet by mouth daily at 6 am. piperacillin-tazobacta m (ZOSYN) 3.375 gram/50 mL in dextrose (iso-osmotic) Inject 50 mL intravenously every 6 hours. Patient should start on January 01, 2024. rosuvastatin (CRESTOR) 40 mg tablet Take 1 tablet by mouth daily at bedtime. zinc oxide-cod liver oil (DESITIN 40%) 40 % paste Apply 1 application to affected area as needed. No current facility-administered medications for this visit. ALLERGIES No Known Allergies FAMILY HISTORY Problem Relation Age of Onset Diabetes Mother Cancer Mother 40 breast Coronary Artery Disease Father Hypertension Father Lipids Father Cancer Father 57 leukemia Social History Tobacco Use Smoking status: Never Passive exposure: Never Smokeless tobacco: Never Vaping Use Vaping status: Never Used Substance Use Topics Alcohol use: No Drug use: No Physi (more content not included)... Normal [facility] Office Visit (GENBMI ) SILVIA,RICK ([id number]) 1955 M Date Time Provider Department 06/04/24 1:30 PM FOREST KIMBLE GENMINDII During your visit today, we recorded the following information about you: Pulse Blood pressure Weight Height 78/minute 147/65 64.7 kg 1.689 m Forest Kimble MD 06/12/2024 4:04 PM Signed GENERAL SURGERY ESTABLISHED PATIENT VISIT Date: June 04, 2024 Time: 1:53 PM Name: Isaias Vega Mr. Vega is here today for followup regarding ostomy Patient came home from [facility] in mid March. He weighed 110lbs upon getting home. Currently, he's 142. Patient is able to eat all foods: candy, fruits, sweets, meat, fish, dairy, cheese. Nothing he can't tolerate. No abdominal pain. Has acid reflux when he lays flat. No nausea. He would like to have ostomy reversed. estimates emptying bag around 6-7 times per day. Around 42 ounces per day. Taking imodium around 6 pills per day. Also taking metamucil crackers, which helps but only temporarily. Hard to do things out of the house due to managing ileostomy output. Legs are still weak, he was working with PT but they are no longer coming. Still has home health nurse who comes and helps with the stoma and checking vitals. Tries to use a walker in the house, currently in a wheelchair for this visit. Chloe was told his gallbladder needs removed by surgeon at OSH He currently has a mackenzie in place. Is considering a suprapubic catheter for urinary retention, has an upcoming appointment with URology. 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 PAST SURGICAL HISTORY: PAST SURGICAL HISTORY Procedure Laterality Date ANGIOPLASTY CAROTID ARTERY CARISA PC Rt side CABG (5) VENOUS GRAFTS AND ARTERIAL GRAFT(S) 2008 CC CORONARY STENT 01/03/15 EXCISION TONSIL LESIONS BILATERAL HERNIA REPAIR HX PAST SURGICAL HISTORY OF 2009 RCEA PICC LINE INSERT/CONSULT 12/07/2023 REVSC OPN/PRG FEM/POP W/ANGIOPLASTY [facility] Right 07-01-15 REVSC OPN/PRG FEM/POP W/ANGIOPLASTY [facility] 08-14-15 REVSC OPN/PRQ TIB/DIANNA W/ANGIOPLASTY [facility] Right 07-01-15 REVSC OPN/PRQ TIB/DINANA W/ANGIOPLASTY [facility] 08-14-15 FAMILY HISTORY: FAMILY HISTORY Problem Relation Age of Onset Diabetes Mother Cancer Mother 40 breast Coronary Artery Disease Father Hypertension Father Lipids Father Cancer Father 57 leukemia SOCIAL HISTORY: Social History Tobacco Use Smoking status: Never Passive exposure: Never Smokeless tobacco: Never Vaping Use Vaping status: Never Used Substance Use Topics Alcohol use: No Drug use: No MEDICATIONS: Prior to Admission Medications: tamsulosin (FLOMAX) 0.4 mg Take 0.8 mg by mouth once daily. clopidogrel (PLAVIX) 75 mg tablet Take 1 tablet by mouth once daily. acetaminophen (TYLENOL) 325 mg tablet Take 2 tablets by mouth every 6 hours. amLODIPine (NORVASC) 10 mg tablet Take 1 tablet by mouth once daily. aspirin 81 mg chewable tablet Take 1 tablet by mouth once daily. carvedilol (COREG) 12.5 mg tablet Take 1 tablet by mouth two times a day. dextrose (TRUEPLUS) 15 gram/32 mL oral gel Take 32 mL by mouth as needed. DULoxetine (CYMBALTA) 60 mg capsule Take 1 capsule by mouth daily at bedtime. insulin glargine 100 unit/mL (3 mL) Inject 30 Units subcutaneously every morning. insulin lispro 100 unit/mL injection Inject 3 Units subcutaneously with meals. lidocaine (SALONPAS) 4 % patch Apply 1 Patch as directed once daily. OLANZapine orally disintegrating (ZYPREXA ZYDIS) 5 mg disintegrating tablet Take 0.5 tablets by mouth every 8 hours as needed. pantoprazole DR (PROTONIX) 40 mg tablet Take 1 tablet by mouth daily at 6 am. rosuvastatin (CRESTOR) 40 mg tablet Take 1 tablet by mouth daily at bedtime. zinc oxide-cod liver oil (DESITIN 40%) 40 % paste Apply 1 application to affected area as needed. ipratropium-albuterol (DUONEB) 0.5 mg-3 mg(2.5 mg base)/3 mL nebu Inhale 3 mL as instructed every 6 hours as needed for wheezing/shortness of breath. (Patient not taking: Reported on 06/04/2024) labetalol (NORMODYNE) 5 mg/mL injection Inject 1 mL intravenously every 4 hours as needed (SBP > 160 only if HR < 90). (Patient not taking: Reported on 06/04/2024) melatonin 3 mg tablet Take 2 tablets by mouth one time only for 1 dose. ondansetron, PF, (ZOFRAN) 4 mg/2 mL soln Inject 4 mg intravenously every 6 hours as needed. (Patient not taking: Reported on 06/04/2024) piperacillin-tazobacta m (ZOSYN) 3.375 gram/50 mL in dextrose (iso-osmotic) Inject 50 mL intravenously every 6 hours. Patient should start on January 01, 2024. (Patient not taking: Rep (more content not included)... Normal [facility] CNOVon 05-31-2024 CNOV Office Visit (UROLMD ) ISAIAS VEGA ([id number]) 1955 M Date Time Provider Department 05/31/24 9:30 AM PEBBLES BARFIELD URORYNE During your visit today, we recorded the following information about you: Pulse Respiration Blood pressure Weight 76/minute 20/minute 121/68 49.9 kg Height 1.702 m Pebbles Barfield MD 05/31/2024 12:13 PM Signed [facility] Patient presents with urinary retention for cystoscopy. [facility] notes reviewed: 03/11/2024: NIKO Drew Past medical Hx: 2 CVA with left-sided hemiplegia, diabetes, skilled nursing anticoag - Eliquis, colorectal cancer, ileostomy for 3 years, LASHONDA, HTN, HLD, GERD, ALEJANDRO, RLS, MDD In LTCF in [place]. Had a stroke in 2008 and 2011. Using a walker since 2019, and in November had SBO that placed him in the hospital. Failed TOV x3. Was placed on Flomax which has not made a difference with TOV. Has chronic mackenzie in place. Now nonambulatory due to chronic medical conditions and recent hospitalization. Performing rehab. Was transported by ambulance service. PRESENTING HISTORY: Hematuria: none Urinary retention: yes Urinary tract infection: no Plan: UDS, cystoscopy, continue Flomax Interval history: Had UDS with evidence of small volume, non-compliant, hypocontractile bladder with incomplete emptying. Pt ID verified with patient: Yes Procedure verified with patient: Yes Procedure confirmed with physician and software support engineer: Yes UNIVERSAL PROTOCOL / SAFETY CHECKLIST Procedure to be Performed: Cystoscopy Sign In: A Moment of CARE was completed. Personnel directly involved with the procedure wore the appropriate PPE (Personal Protective Equipment). Patient/Surrogate Stated/Verified: PATIENT VERIFIED(optional for EMERGENT procedures): Patient name, Date of , Relevant allergies, and The intended procedure Time Out Communication: Intended patient and procedure match the source documents. Consent documented and matches the intended procedure. Sign Out: SIGN OUT (optional for EMERGENT procedures): No specimen collected. All instruments, equipment, possible retained foreign bodies accounted for. CYSTOSCOPY PROCEDURE NOTE: Antibiotics: Keflex The benefits, risks, alternatives of the cystoscopy procedure and personnel were discussed with the patient. The verbal consent was obtained and the patient agrees to proceed. Procedure: The patient was placed on the procedure table in the supine position and prepped and draped in the usual sterile fashion. 2% Lidocaine Jelly was placed per urethra as an anesthetic in the standard fashion. Once adequate local anesthesia was achieved, the tip of the flexible cystoscope was carefully placed into the urethra under direct visual guidance. Urethra: Normal Prostate: Nicely patent Bladder: no stones, no tumors, trabeculated, very small capacity bladder, leaked after instillation of 50 cc saline. At the conclusion of the procedure, the flexible cystoscope was removed atraumatically. The patient tolerated the procedure without complications. Mackenzie was replaced. Patient was given standard post-procedure instructions, and was directed to complete the course of oral antibiotics and increase oral fluid intake as directed. ASSESSMENT/PLAN: 1. Retention of urine - ICD9: 788.20, ICD10: R33.9 (primary diagnosis) 2. Urge incontinence - ICD9: 788.31, ICD10: N39.41 3. Frail elderly - ICD9: 797, ICD10: R54 4. History of CVA in adulthood - ICD9: V12.54, ICD10: Z86.73 Discussed options. Given lack of mobility and small volume bladder, do not recommend WINTERS procedure, as he would likely develop worsening incontinence Discussed chronic Mackenzie vs SPT. Do not recommend CIC given small volume bladder. Patient and want to proceed with SPT. Plan to follow 1 mo after placement to change catheter. MD Lisa Trejo John, RN 05/31/2024 11:44 AM Signed AMBULATORY CYSTOSCOPY PROCEDURE PREOPERATIVE/PROCEDURA L VERIFICATION: Patient verified by: Name, Medical Record Number, and Date of UNIVERSAL PROTOCOL / SAFETY CHECKLIST Procedure to be Performed: Cystoscopy Sign In: A Moment of CARE was completed. Personnel directly involved with the procedure wore the appropriate PPE (Personal Protective Equipment). Patient/Surrogate Stated/Verified: PATIENT VERIFIED(optional for EMERGENT procedures): Patient name, Date of , Relevant allergies, and The intended procedure Time Out Communication: Intended patient and procedure match the source documents. Consent documented and matches the intended procedure. Sign Out: SIGN OUT (optional for EMERGENT procedures): No specimen collected. Vishal Gonzalez RN Medications and allergies reviewed and updated. Latex Allergy:No Pre-Procedure Antibiotics: Keflex 500 mg orally given during visit @ 0945 , by vishal Gonzalez Pre-Procedure Vit (more content not included)... Normal [facility] Echo Completeon 05-28-2024 Echo Complete Normal [facility] Cardiology Visit Reporton Cardiology Visit Report Normal [facility] CNNURSEon 05-03-2024 CNNURSE Nurse Visit (CORSMN) ISAIAS VEGA ([id number]) 1955 M Date Time Provider Department 05/03/24 1:00 PM STOMA THERAPY CORSMN During your visit today, we recorded the following information about you: Ailyn Warren RN 05/03/2024 1:34 PM Signed [facility] [place] [id number] Patient: Isaias Vega Patient Address: [address] [place] [address] [place] [address] Preferred Gender: male Date of : 1955 Type of Stoma: End Ileostomy Diagnosis: Rectal Cancer C20 OSTOMY SUPPLY ORDER FORM Pouch: Deputy: New Image 2 ? Beige Lock 'n Roll, drainable pouch #[id number] New Image 2 ? High Output Wide Bore #55348 30 day use - 2 Boxes (20 pouches) Wafer: Deputy: New Image CeraPlus 2 08/10 Convex, with tape # 89857 30 day use - 4 Boxes (20 flanges) Adhesive Removers: ConvaTec Esenta Wipes #655979 30 day use - 1 Box Belt: Deputy Medium # 7300 30 day use - 2 belts [facility] Accessories: Mefix Tape 2 # [id number] 30 day use - As Needed Paste: ConvaTec Stomahesive # 044454 30 day use - 2 Tubes Powder: ConvaTec Stomahesive # 33119 30 day use - 1 Bottle Skin Sealant: 3M No Sting, 30/Box # 3344 30 day use - As Needed Other: Molnlycke Mepore dressing 3 3/5 x 4 #186136 50/Box 30 day use - 1 Box Ranjana large bore drainage bag #5551 30 day use - 2 Bags as needed. Refills: 11 Attending Physician: Dr. Galarza For immediate authorization, please contact the physician?s office. [facility] Nurse: JIM Melchor, CWOCN Note: SIGNATURE: Ailyn Gabriel RN PATIENT NAME: Isaias Vega DATE: May 03, 2024 TIME: 1:26 PM CONTACT #: [phone] Ailyn Warren RN 05/03/2024 5:23 PM Signed ET/WOCN Nursing Consult Topic: ET/WOCN Consultation Note ET Outcome: Pt came to see the [facility] nurse via wheel chair accompanied by his . He did not have any other appointment. Noted pt has not have any post op appointment since his ileostomy surgery in December. Informed that the pt can be seen by nurse practitioner since Dr. Guerrero has left the [facility]. Provided information. Noted pt has very thin liquid effluent and it was active. Preventing dehydration after bowel surgery information, hand out for oral rechydration solution, and keeping I AND O explained at this time. He was taking imodium but not certain timing. Discussed he can take the imodium,30 min prior to eat, otherwise as doctor's instruction. Pt and informed that his pouch leaked sometimes. Once removed, noted they used a lot of amount of paste and cut pouch opening on the size of budded part of stoma. The opening size was too small. Adjustment of pouching system was done as below. New prescription, sample of supplies provided. ET's Next Scheduled Visit: as needed. #1 pouch: Stoma Type: End ileostomy Diameter:1 1/8 x 1 1/2 Location: RLQ Protrusion: Budded Mucosal condition and color: Red and moist Mucocutaneous junction Intact Peristomal Skin: Erythema Location of Skin Impairment: slight erythema noted outer area of 1-5 o'clock area. Peristomal contour: Rounded, there were shallow crease noted from 4-7 o'clock area with peristalsis. Supportive Tissue: Soft Character of output: large amount of liquid effluent Emptying frequency per day: 6-8 times per day per pt. Current pouching system: Ranjana New Image 1 3/4 flat flange cut opening 1 1/8 size with a lot of paste, drainable pouch Current wearing time: 3 days, often has leakage Recommendations: Skin Care: stomahesive powder to irritated skin, No Sting Liquid Skin Barrier as option Pouching System: increased convexity. Ranjana New Image 2 1/4 convex flange cut to fit the stoma, paste, High Volume Output Pouch. Provided drainable pouch option. Wear Time: 3-4 days #2 pouch: End colostomy as non functional stoma at [facility]. Stoma was red and moist, budded. Mucocutaneous junction and peristomal skin was intact. Has managed with Deputy New Image 2 1/4 flat flange, drainable pouch. Drainage: none. Occasional mucous. Wear time: 1 week. Recommendation: Remove the pouch, manage with dressing or gauze with vaseline. Suggested to use dressing: Gauze, Sanitary napkin, Mepore island dressing, change daily. Midline Abdominal Incision: Healed scar Time Increment: 1 hour ANTHONY MarchN RN CWOCN The [facility] nursing pager [phone] (M-F 7a-4p, Sat, Sun, Holiday 7a-3p) Referring Provider: MATT PENNY [[id number]] Allergies As of Date: 05/03/2024 (No Known Allergies) Date Reviewed: 04/10/2024 Reviewed by: Iwona Taylor, RN - Fully Assessed Primary Visit Diagnosis:Attention to ileostomy (HCC) [Z43.2] Prescriptions as of 05/03/2024 - tamsulosin (FLOMAX) 0.4 mg Take 0.8 mg by mouth once daily. - clopidogrel (PLAVIX) 75 mg tabl (more content not included)... [facility] Visit (UROSMN) ISAIAS VEGA ([id number]) 1955 M Date Time Provider Department 05/02/24 10:00 AM FLUROURODYNAMICS UROSMN During your visit today, we recorded the following information about you: Rosy Bautista RN 05/02/2024 11:50 AM Signed [facility] URODYNAMICS LAB URODYNAMIC PROCEDURE NOTE ID Verified by: Rosy Bautista RN with name and birthdate. Procedure instructions reviewed with patient prior to procedure: Yes Currently experiencing pain: Yes LOCATION: urethra PAIN SCALE: 1 on a scale of 0-10 PAIN CHARACTER: burning on a scale of 0-10. Does the patient have any concerns about safety in the home/falls?: At risk due to: unsteady gait, imbalance, and use of a wheelchair Has the patient had 2 falls in the last year or 1 fall with injury or currently using assistive device (walker, cane, wheelchair, crutches): Yes, patient high risk for falls, provider notified. What interventions were put in place to prevent falls during this visit: Increased observations by caregivers Instructed patient to call for help if needed Offered assistance with transfers/clothing Has patient had any history of Mitral Valve prolapse: No MEDS:NONE Has patient had any history of prosthetics: No MEDS: NONE Latex allergy: No Iodine allergy: No Females- Is patient : No Respite Coordinator offered: Patient declines B/O UA: Not completed due to indwelling mackenzie. Asymptotic at this time. Pre- test UROFLOWMETRY- not completed as has chronic indwelling mackenzie. CYSTOMETROGRAM Subtracted:Yes Video: No EMG: Yes First Sensation: 110 ml Strong desire: 160 ml Max. capacity:160 ml Maximum filling detrusor pressure 18 cm of water Detrusor overactivity associated with urge: Yes Detrusor overactivity associated with leakage: Yes Was patient assessed for VLPP / UPP No- denies history of leakage Leaks urine with valsalva /coughs: N/A Lowest Leak point pressure: N/A PRESSURE-FLOW VOIDING STUDY Did patient void with catheters in place Yes Voided: 68 ml Involuntary Max Voiding Detrusor Pressure: 42 cm H2O P det @ Q max (Max Flow): 27 cm H2O Maximum Flow Rate: 3.2 ml/sec Average Flow Rate: 1.7 ml/sec Comments: Pre-test uroflow not completed due to indwelling mackenzie. Urodynamics completed with P-Abd in colostomy. 1st test patient was filled at rate of 30 with 1 urge leak noted, and patient was unable to stop stream. 2nd test Patient filled at reduced rate (10), and was given permit to void at strong desire. Patient unable to void and reports that sensation to void was decreased. Continued to fill patient and noted urge allowing patient to void. Mackenzie replaced. Noted steady rise in PVES throughout testing. Follow up 05/27/24 for cysto. STUDY DETAILS: Was a uroflow done at some point during the study: No Was a cystometrogram performed: Yes Was a UPP/VLPP done: No Was an EMG done: Yes Was an intraabdominal pressure recorded with urethral catheter in: Yes Where were pressure catheters placed: Bladder and Ostomy Was contrast instilled for radiologic evaluation: No Please use Urodynamic Graph. Pt given verbal home going instructions. Pt states an understanding of instructions given. Pebbles Barfield MD 05/26/2024 9:54 PM Signed Urodynamics Interpretation: A 6 Fr catheter was placed and secured to the patient's penis with tape and a separate rectal catheter was placed for intra-abdominal pressure measurements. The study was then run to yield results as follows: Uroflow: NA- came with Mackenzie PVR: NA - came with Mackenzie CMG: The FS and SD: 110 mL and 160 mL Bladder compliance: Pressures gradually increase with filling Detrusor overactivity: Some, associated with leakage Total tolerated volume was 160 mL Stress incontinence demonstrated with Valsalva during filling: None PRESSURE-FLOW VOIDING STUDY: Voided: 68 ml Maximum flow rate - 3.2 ml/sec Average flow rate - 1.7 ml/sec Max detrusor pressure of 42 cmH2O Pressure Flow phase: Pdet Qmax was 27 cm H2O Abdominal strain: NA EMG: DESD or abnormal patterns noted: n/a Impression: Small capacity bladder with DO and incontinence Non-compliance Hypocontractile bladder Incomplete emptying Recommend maintaining Mackenzie catheter, discuss conversion to SPT Referring Provider: PEBBLES BARFIELD [[id number]] Allergies As of Date: 05/02/2024 (No Known Allergies) Date Reviewed: 04/10/2024 Reviewed by: Iwona Taylor RN - Fully Assessed Primary Visit Diagnosis:Retention of urine [R33.9] Other Visit Diagnosis:Urge incontinence [N39.41] Prescriptions as of 05/26/2024 - tamsulosin (FLOMAX) 0.4 mg Take 0.8 mg by mouth once daily. - clopidogrel (PLAVIX) 75 mg tablet Take 1 tablet by mouth once daily. - acetaminophen (TYLENOL) 325 mg tablet Take 2 tablets by mouth every 6 hours. - amLODIPine (NORVASC) 10 mg tablet Take 1 (more content not included)... Normal [facility] Basic Metabolic Profile (BMP )on 04-16-2024 BUN/CRE 15.1 RATIO Normal 10-20 [facility] Comment on above: Performed By: #### L 500.3400, L500.4100, L500.2500, L501.9985, L100.0100, L501.9520 ####[facility] [address] [place], [address] CA,Total 9.2 mg/dL Normal 8.5-10.1 [facility] Comment on above: Performed By: #### L 500.3400, L500.4100, L500.2500, L501.9985, L100.0100, L501.9520 ####[facility] [address] [place], [address] Chloride [Moles/Vol] 99 mmol/L Normal 98-107 [facility] Comment on above: Performed By: #### L 500.3400, L500.4100, L500.2500, L501.9985, L100.0100, L501.9520 ####[facility] [address] [place], [address] CO2 [Moles/Vol] 24.0 mmol/L Normal 21.0-32.0 [facility] Comment on above: Performed By: #### L 500.3400, L500.4100, L500.2500, L501.9985, L100.0100, L501.9520 ####[facility] [address] [place], [address] Creatinine [Mass/Vol] 0.80 mg/dL Normal 0.70-1.30 [facility] Comment on above: Result Comment: The validity of the calculated GFR GFRAA in patients over70 years has not been determined. Clinical correlation isessential. Performed By: #### L 500.3400, L500.4100, L500.2500, L501.9985, L100.0100, L501.9520 ####[facility] [address] [place], [address] EST GFR - AA 125 mL/min Normal >60 [facility] Comment on above: Result Comment: Afri can Togolese GFR Calc Performed By: #### L 500.3400, L500.4100, L500.2500, L501.9985, L100.0100, L501.9520 ####[facility] [address] [place], [address] GAP 9 Normal 5-15 [facility] Comment on above: Performed By: #### L 500.3400, L500.4100, L500.2500, L501.9985, L100.0100, L501.9520 ####[facility] [address] [place], [address] GFR/1.73 sq M.predicted among non-blacks MDRD (S/P/Bld) [Vol rate/Area] 103 mL/min/{1.73_m2} Normal >60 [facility] Comment on above: Result Comment: Non- GFR Calc Performed By: #### L 500.3400, L500.4100, L500.2500, L501.9985, L100.0100, L501.9520 ####[facility] [address] [place], [address] Glucose [Mass/Vol] 246 mg/dL High 74-106 [facility] Comment on above: Result Comment: Gluc ose result greater than or equal to 200 mg/dLsuggests DIABETES MELLITUS per A.D.A. criteria. Performed By: #### L 500.3400, L500.4100, L500.2500, L501.9985, L100.0100, L501.9520 ####[facility] [address] [place], [address] Potassium [Moles/Vol] 4.1 mmol/L Normal 3.5-5.1 [facility] Comment on above: Performed By: #### L 500.3400, L500.4100, L500.2500, L501.9985, L100.0100, L501.9520 ####[facility] [address] [place], [address] Sodium [Moles/Vol] 132 mmol/L Low 136-145 [facility] Comment on above: Performed By: #### L 500.3400, L500.4100, L500.2500, L501.9985, L100.0100, L501.9520 ####[facility] [address] [place], [address] Urea nitrogen [Mass/Vol] 12 mg/dL Normal 7-18 [facility] Comment on above: Performed By: #### L 500.3400, L500.4100, L500.2500, L501.9985, L100.0100, L501.9520 ####[facility] [address] [place], [address] CBC W/Diff, Automatedon 09- 0-4 Absolute Lymph 0.85 X10 3/uL Normal 0.83-4.51 [facility] Comment on above: Performed By: #### L 500.3400, L500.4100, L500.2500, L501.9985, L100.0100, L501.9520 ####[facility] [address] [place], [address] Absolute Neut 5.0 X10 3/uL Normal 2.0-7.7 [facility] Comment on above: Performed By: #### L 500.3400, L500.4100, L500.2500, L501.9985, L100.0100, L501.9520 ####[facility] [address] [place], [address] Basophils/100 WBC (Bld) 0.6 % Normal 0-1 [facility] Comment on above: Performed By: #### L 500.3400, L500.4100, L500.2500, L501.9985, L100.0100, L501.9520 ####[facility] [address] [place], [address] Eosinophils/100 WBC (Bld) 3.1 % Normal 0-5 [facility] Comment on above: Performed By: #### L 500.3400, L500.4100, L500.2500, L501.9985, L100.0100, L501.9520 ####[facility] [address] [place], [address] Erythrocyte distribution width (RBC) [Ratio] 17.1 % High 11.6-14.6 [facility] Comment on above: Performed By: #### L 500.3400, L500.4100, L500.2500, L501.9985, L100.0100, L501.9520 ####[facility] [address] [place], [address] Hematocrit (Bld) [Volume fraction] 32.3 % Low 40-54 [facility] Comment on above: Performed By: #### L 500.3400, L500.4100, L500.2500, L501.9985, L100.0100, L501.9520 ####[facility] [address] [place], [address] Hemoglobin (Bld) [Mass/Vol] 10.0 g/dL Low 13.0-16.5 [facility] Comment on above: Performed By: #### L 500.3400, L500.4100, L500.2500, L501.9985, L100.0100, L501.9520 ####[facility] [address] [place], [address] IG% 1.600 High 0.0-0.9 [facility] Comment on above: Result Comment: IG% - Immature Granulocytes (promyelocytes, myelocytes andmetamyelocytes) > 1% indicates that a LEFT SHIFT is Present. Performed By: #### L 500.3400, L500.4100, L500.2500, L501.9985, L100.0100, L501.9520 ####[facility] [address] [place], [address] Lymphocytes/100 WBC (Bld) 12.0 % Low 19-41 [facility] Comment on above: Performed By: #### L 500.3400, L500.4100, L500.2500, L501.9985, L100.0100, L501.9520 ####[facility] [address] [place], [address] MCH (RBC) [Entitic mass] 28.6 pg Normal 27.0-32.0 [facility] Comment on above: Performed By: #### L 500.3400, L500.4100, L500.2500, L501.9985, L100.0100, L501.9520 ####[facility] [address] [place], [address] MCHC (RBC) [Mass/Vol] 31.0 g/dL Low 32-36 [facility] Comment on above: Performed By: #### L 500.3400, L500.4100, L500.2500, L501.9985, L100.0100, L501.9520 ####[facility] [address] [place], [address] MCV (RBC) [Entitic vol] 92.3 fL Normal 80-94 [facility] Comment on above: Performed By: #### L 500.3400, L500.4100, L500.2500, L501.9985, L100.0100, L501.9520 ####[facility] [address] [place], [address] Monocytes/100 WBC (Bld) 12.0 % High 0-[address] [facility] Comment on above: Performed By: #### L 500.3400, L500.4100, L500.2500, L501.9985, L100.0100, L501.9520 ####[facility] [address] [place], [address] Neutrophils/100 WBC (Bld) 70.7 % High 47-70 [facility] Comment on above: Performed By: #### L 500.3400, L500.4100, L500.2500, L501.9985, L100.0100, L501.9520 ####[facility] [address] [place], [address] Nucleated RBC (Bld) [#/Vol] 0.3 10*3/uL Normal 0-5 [facility] Comment on above: Performed By: #### L 500.3400, L500.4100, L500.2500, L501.9985, L100.0100, L501.9520 ####[facility] [address] [place], [address] Platelet mean volume (Bld) [Entitic vol] 9.8 fL Normal 6.2-12.0 [facility] Comment on above: Performed By: #### L 500.3400, L500.4100, L500.2500, L501.9985, L100.0100, L501.9520 ####[facility] [address] [place], [address] Platelets (Bld) [#/Vol] 347 10*3/uL Normal 150-450 [facility] Comment on above: Performed By: #### L 500.3400, L500.4100, L500.2500, L501.9985, L100.0100, L501.9520 ####[facility] [address] [place], [address] RBC (Bld) [#/Vol] 3.50 10*6/uL Low 4.6-6.2 [facility] Comment on above: Performed By: #### L 500.3400, L500.4100, L500.2500, L501.9985, L100.0100, L501.9520 ####[facility] [address] [place], [address] RDW SD 57.7 fl High 35.1-43.9 [facility] Comment on above: Performed By: #### L 500.3400, L500.4100, L500.2500, L501.9985, L100.0100, L501.9520 ####[facility] [address] [place], [address] WBC (Bld) [#/Vol] 7.1 10*3/uL Normal 4.4-11.0 [facility] Comment on above: Performed By: #### L 500.3400, L500.4100, L500.2500, L501.9985, L100.0100, L501.9520 ####[facility] [address] [place], [address] Hemoglobin A1con 04-16-2024 HbA1c (Bld) [Mass fraction] 7.4 % High 3.8-5.6 [facility] Comment on above: Result Comment: Norm al < 5.7 % Prediabetic 5.7 - 6.4 % Diabetic >or= 6.5 % Please note range changes. Performed By: #### L 500.3400, L500.4100, L500.2500, L501.9985, L100.0100, L501.9520 ####[facility] [address] [place], [address] Lipid Profileon 04-16-2024 Cholesterol [Mass/Vol] 164 mg/dL Normal 200 [facility] Comment on above: Result Comment: <200 mg/dL Desirable 200-240 mg/dL Borderline >240 mg/dL High Risk Performed By: #### L 500.3400, L500.4100, L500.2500, L501.9985, L100.0100, L501.9520 ####[facility] [address] [place], [address] Cholesterol in HDL [Mass/Vol] 43 mg/dL Normal [facility] Comment on above: Result Comment: The drugs N-Acetylcysteine and Metamizole may falselydepress this assay. Reference Range HDL <40 mg/dL Low HDL Cholesterol HDL >or= 60 mg/dL High HDL Cholesterol Performed By: #### L 500.3400, L500.4100, L500.2500, L501.9985, L100.0100, L501.9520 ####[facility] [address] [place], [address] Cholesterol in LDL [Mass/Vol] 79 mg/dL Normal 0-130 [facility] Comment on above: Performed By: #### L 500.3400, L500.4100, L500.2500, L501.9985, L100.0100, L501.9520 ####[facility] [address] [place], [address] Cholesterol in VLDL [Mass/Vol] 42 mg/dL High 5-40 [facility] Comment on above: Performed By: #### L 500.3400, L500.4100, L500.2500, L501.9985, L100.0100, L501.9520 ####[facility] [address] [place], [address] Triglyceride [Mass/Vol] 209 mg/dL High [facility] Comment on above: Result Comment: The drugs N-Acetylcysteine and Metamizole may falselydepress this assay.Serum Triglycerides Reference Interval Normal <150 mg/dL Borderline high 150 - 199 mg/dL High 200 - 499 mg/dL Very High > or = 500 mg/dL Performed By: #### L 500.3400, L500.4100, L500.2500, L501.9985, L100.0100, L501.9520 ####[facility] [address] [place], [address] Liver Profileon 04-16-2024 Albumin [Mass/Vol] 2.6 g/dL Low 3.2-5.0 [facility] Comment on above: Performed By: #### L 500.3400, L500.4100, L500.2500, L501.9985, L100.0100, L501.9520 ####[facility] [facility] [address] [place], [address] ALK P 202 U/L High 45-117 [facility] Comment on above: Performed By: #### L 500.3400, L500.4100, L500.2500, L501.9985, L100.0100, L501.9520 ####[facility] [address] [place], [address] ALT [Catalytic activity/Vol] 89 U/L High 16-61 [facility] Comment on above: Performed By: #### L 500.3400, L500.4100, L500.2500, L501.9985, L100.0100, L501.9520 ####[facility] [address] [place], [address] AST [Catalytic activity/Vol] 67 U/L High 15-37 [facility] Comment on above: Performed By: #### L 500.3400, L500.4100, L500.2500, L501.9985, L100.0100, L501.9520 ####[facility] [address] [place], [address] Bilirubin [Mass/Vol] 0.30 mg/dL Normal 0.20-1.00 [facility] Comment on above: Result Comment: For patients on eltrombopag therapy, use of Dimension [place] TBIL is not recommended. Performed By: #### L 500.3400, L500.4100, L500.2500, L501.9985, L100.0100, L501.9520 ####[facility] [address] [place], [address] Bilirubin.direct [Mass/Vol] 0.13 mg/dL Normal 0.00-0.30 [facility] Comment on above: Performed By: #### L 500.3400, L500.4100, L500.2500, L501.9985, L100.0100, L501.9520 ####[facility] [address] [place], [address] Globulin (S) [Mass/Vol] 4.6 g/dL High 2.2-4.[address] [facility] Comment on above: Performed By: #### L 500.3400, L500.4100, L500.2500, L501.9985, L100.0100, L501.9520 ####[facility] [address] [place], [place], [id number] T PROT 7.2 g/dL Normal 6.4-8.2 [facility] Comment on above: Performed By: #### L 500.3400, L500.4100, L500.2500, L501.9985, L100.0100, L501.9520 ####[facility] [address] [place], [address] Thyroid Stim Hormone (TSH)on 04-16-2024 TSH 1.130 uIU/mL Normal 0.358-3.740 [facility] Comment on above: Performed By: #### L 500.3400, L500.4100, L500.2500, L501.9985, L100.0100, L501.9520 ####[facility] [address] [place], [place], [id number] CNPNurys 04-12-2024 GILLIAN Telephone (KEISHA) ISAIAS VEGA ([id number]) 1955 M Date Time Provider Department 04/12/24 PEBBLES BARFIELD During your visit today, we recorded the following information about you: Pebbles Barfield MD 04/12/2024 3:37 PM Signed Patient was supposed to have UDS at [facility], but catheter was malpositioned and he had a UTI, so they replaced his catheter, sent a culture and deferred the UDS. Urine culture came back, so I called in [facility] for him to take for 10 days. Also needs to reschedule his UDS (needs to be at [facility] due to need for Tricia lift). We can also reschedule his visit with me until after his UDS. Kenzie Drew APRN.LORRIE [facility] 04/12/2024 4:55 PM Signed Amira Bang. Have a great weekend! Rose Barnett 04/15/2024 8:46 AM Signed LM to PT to call back to schedule the UDS and to RS Dr. Barfield's appt. Felicitas Fisher Anandsteffen 04/15/2024 10:02 AM Signed PT called back and was scheduled for both appointment by Joanne. Thanks Allergies As of Date: 04/12/2024 (No Known Allergies) Date Reviewed: 04/10/2024 Reviewed by: Iwona Taylor, RN - Fully Assessed Reason for Visit: Orders [681] Results [95] Primary Visit Diagnosis:Urinary tract infection associated with indwelling urethral catheter, initial encounter ([facility]) ([facility]) [T83.511A, N39.0] Order(s):cephALEXin (KEFLEX) 500 mg capsuleTake 1 capsule by mouth four times daily for 10 days.Disp: 40 capsuleRfl: 0 Prescriptions as of 04/15/2024 - cephALEXin (KEFLEX) 500 mg capsule Take 1 capsule by mouth four times daily for 10 days. - tamsulosin (FLOMAX) 0.4 mg Take 0.8 mg by mouth once daily. - clopidogrel (PLAVIX) 75 mg tablet Take 1 tablet by mouth once daily. - acetaminophen (TYLENOL) 325 mg tablet Take 2 tablets by mouth every 6 hours. - amLODIPine (NORVASC) 10 mg tablet Take 1 tablet by mouth once daily. - aspirin 81 mg chewable tablet Take 1 tablet by mouth once daily. - carvedilol (COREG) 12.5 mg tablet Take 1 tablet by mouth two times a day. - dextrose (TRUEPLUS) 15 gram/32 mL oral gel Take 32 mL by mouth as needed. - DULoxetine (CYMBALTA) 60 mg capsule Take 1 capsule by mouth daily at bedtime. - insulin glargine 100 unit/mL (3 mL) Inject 30 Units subcutaneously every morning. - insulin lispro 100 unit/mL injection Inject 3 Units subcutaneously with meals. - ipratropium-albuterol (DUONEB) 0.5 mg-3 mg(2.5 mg base)/3 mL nebu Inhale 3 mL as instructed every 6 hours as needed for wheezing/shortness of breath. - labetalol (NORMODYNE) 5 mg/mL injection Inject 1 mL intravenously every 4 hours as needed (SBP > 160 only if HR < 90). - lidocaine (SALONPAS) 4 % patch Apply 1 Patch as directed once daily. - melatonin 3 mg tablet Take 2 tablets by mouth one time only for 1 dose. - OLANZapine orally disintegrating (ZYPREXA ZYDIS) 5 mg disintegrating tablet Take 0.5 tablets by mouth every 8 hours as needed. - ondansetron, PF, (ZOFRAN) 4 mg/2 mL soln Inject 4 mg intravenously every 6 hours as needed. - pantoprazole DR (PROTONIX) 40 mg tablet Take 1 tablet by mouth daily at 6 am. - piperacillin-tazobacta m (ZOSYN) 3.375 gram/50 mL in dextrose (iso-osmotic) Inject 50 mL intravenously every 6 hours. Patient should start on January 01, 2024. - rosuvastatin (CRESTOR) 40 mg tablet Take 1 tablet by mouth daily at bedtime. - zinc oxide-cod liver oil (DESITIN 40%) 40 % paste Apply 1 application to affected area as needed. Problem List As Of Date 04/12/2024 Noted Resolved Diabetes mellitus type 2, uncontrolled ([facility]) [I*01/22/2013 HTN (hypertension) [I10] 01/22/2013 Hyperlipidemia [E78.5] 01/22/2013 Occlusion and stenosis of unspecified carotid a*05/11/2015 PAD (peripheral artery disease) ([facility]) [I73.9] 05/11/2015 Right lumbar radiculopathy [M54.16] 10/06/2015 Low back pain with right-sided sciatica [M54.41]10/06/2015 Pain in right hip [M25.551] 10/06/2015 Rectal cancer ([facility]) [C20] 07/23/2019 CAD (coronary artery disease) [I25.10] 05/26/2020 Stenosis of right carotid artery [I65.21] 05/26/2020 History of CVA in adulthood [Z86.73] 05/26/2020 Neuropathy [G62.9] 05/26/2020 GERD (gastroesophageal reflux disease) [K21.9] 05/26/2020 Anxiety and depression [F41.9, F32.A] 05/26/2020 Chronic renal insufficiency [N18.9] 05/26/2020 ALEJANDRO on CPAP [G47.33] 05/26/2020 Acute postoperative pain [G89.18] 05/26/[address] (HCC) [Z93.3] 05/26/2020 prison (current) use of 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/anti*1 Small bowel obstruction (HCC) [K56.609] 12/02/2023 12/04/2023 Severe protein-calorie malnutrition (HCC) [E43] 12/04/2023 Type 2 diabetes mellitus with hyperglycemia, wi*12/06/2023 S/P small bowel resection [Z90.49] 12/08/2023 Feeding difficulties [R63.30] 12/08/2023 On total parenteral nutrition (TPN) [Z78.9] 12/08/2023 Therapeutic drug monitoring [Z51.81] 12/08/2023 Severe protein-calorie malnutrition (G (more content not included)... Normal [facility] Bacteria Ur Culton Bacteria identified Cx Nom (U) CULTURE, URINE: Mixed microbiota, including predominantly: ORGANISM ID: 1 >=100,000 CFU/ml Escherichia coli ORGANISM ID: 1 (ESCHERICHIA COLI) -- ANTIBIOTIC INTERPRETATION KENIA STATUS REFERENCE RANGE -- Ampicillin R >=32 F Susceptible <=8 , Intermediate >8 , Resistant >16 Cefazolin S <=4 F Susceptible 0-16 , Intermediate <0 or >16 , Resistant >16 For uncomplicated urinary tract infections, cefazolin results can be used to predict susceptibility or resistance to cephalexin. Ceftriaxone S <=1 F Susceptible <=1 , Intermediate >1 , Resistant >=4 Cefepime S <=1 F Susceptible <=2 , Susceptible-Dose Dependent >2 , Resistant >=16 Ertapenem S <=0.5 F Susceptible <=0.5 , Intermediate >.5 , Resistant >1 Meropenem S <=0.25 F Susceptible <=1 , Intermediate >1 , Resistant >2 Ampicillin/Sulbact R >=32 F Susceptible <=8 , Intermediate >8 , Resistant >16 Piperacillin/Tazobac S <=4 F Susceptible <16 , Susceptible-Dose Dependent >=16 , Resistant >=32 Gentamicin S <=1 F Susceptible <=2 , Intermediate >2 , Resistant >=8 Tobramycin S <=1 F Susceptible <4 , Intermediate >=4 , Resistant >=8 Trimeth sulfameth R >=320 F Susceptible <=40 , Resistant >40 Ciprofloxacin S <=0.25 F Susceptible <0.5 , Intermediate >=.5 , Resistant >=1 Nitrofurantoin S <=16 F Susceptible <=32 , Intermediate >32 , Resistant >64 Abnormal [facility] Comment on above: Performed By: #### 6 30-4 ####[facility] LABIA [id number] [address] [place] CNNURSEon 04-10-2024 CNNURSE Nurse Visit (UROSMN) ISAIAS VEGA ([id number]) 1955 M Date Time Provider Department 04/10/24 10:00 AM FLUROURODYNAMICS UROSMN During your visit today, we recorded the following information about you: Iwona Taylor RN 04/10/2024 10:31 AM Signed [facility] URODYNAMICS LAB URODYNAMIC PROCEDURE NOTE ID Verified by: Iwona Taylor RN with name and birthdate. Procedure instructions reviewed with patient prior to procedure: Yes Currently experiencing pain: No 0 on a scale of 0 to 10 on a scale of 0-10. Does the patient have any concerns about safety in the home/falls?: At risk due to: unsteady gait, imbalance, and use of a wheelchair Has the patient had 2 falls in the last year or 1 fall with injury or currently using assistive device (walker, cane, wheelchair, crutches): Yes, patient high risk for falls, provider notified. What interventions were put in place to prevent falls during this visit: Increased observations by caregivers Has patient had any history of Mitral Valve prolapse: No MEDS:NONE Has patient had any history of prosthetics: No MEDS: NONE Latex allergy: No Iodine allergy: No Respite Coordinator offered:Patient declines B/O UA: Yes, Positive for leukocytes and positive for nitrates. Comments: Patient states his catheter is not draining at all and he has been leaking around the catheter, his depends and pad were both wet upon arrival for UDS. Inserted straight catheter to ensure bladder was drained, and red cloudy urine with sediment was drained and urine was positive for leukocytes and nitrates. Patient states he is having burning. Attempted to page x1 and call Dr. Barfield x2 with no answer or response. Reached out to Dr. Harris on our unit for guidance and was told to send urine for culture, upsize catheter to 18 coude latex and cancel UDS. Dr. Barfield notified. Iwona Taylor RN 04/10/2024 10:39 AM Signed Addended by: IWONA TAYLOR on: 04/10/2024 10:39 AM Modules accepted: Orders Referring Provider: PEBBLES BARFIELD [[id number]] Allergies As of Date: 04/10/2024 (No Known Allergies) Date Reviewed: 04/10/2024 Reviewed by: Iwona Taylor RN - Fully Assessed Primary Visit Diagnosis:Retention of urine [R33.9] Other Visit Diagnosis:Gross hematuria [R31.0] Order(s):URINE CULTURE [SQURCUL] Order #: [id number]. #:[id number] Prescriptions as of 04/10/2024 - tamsulosin (FLOMAX) 0.4 mg Take 0.8 mg by mouth once daily. - clopidogrel (PLAVIX) 75 mg tablet Take 1 tablet by mouth once daily. - acetaminophen (TYLENOL) 325 mg tablet Take 2 tablets by mouth every 6 hours. - amLODIPine (NORVASC) 10 mg tablet Take 1 tablet by mouth once daily. - aspirin 81 mg chewable tablet Take 1 tablet by mouth once daily. - carvedilol (COREG) 12.5 mg tablet Take 1 tablet by mouth two times a day. - dextrose (TRUEPLUS) 15 gram/32 mL oral gel Take 32 mL by mouth as needed. - DULoxetine (CYMBALTA) 60 mg capsule Take 1 capsule by mouth daily at bedtime. - insulin glargine 100 unit/mL (3 mL) Inject 30 Units subcutaneously every morning. - insulin lispro 100 unit/mL injection Inject 3 Units subcutaneously with meals. - ipratropium-albuterol (DUONEB) 0.5 mg-3 mg(2.5 mg base)/3 mL nebu Inhale 3 mL as instructed every 6 hours as needed for wheezing/shortness of breath. - labetalol (NORMODYNE) 5 mg/mL injection Inject 1 mL intravenously every 4 hours as needed (SBP > 160 only if HR < 90). - lidocaine (SALONPAS) 4 % patch Apply 1 Patch as directed once daily. - melatonin 3 mg tablet Take 2 tablets by mouth one time only for 1 dose. - OLANZapine orally disintegrating (ZYPREXA ZYDIS) 5 mg disintegrating tablet Take 0.5 tablets by mouth every 8 hours as needed. - ondansetron, PF, (ZOFRAN) 4 mg/2 mL soln Inject 4 mg intravenously every 6 hours as needed. - pantoprazole DR (PROTONIX) 40 mg tablet Take 1 tablet by mouth daily at 6 am. - piperacillin-tazobacta m (ZOSYN) 3.375 gram/50 mL in dextrose (iso-osmotic) Inject 50 mL intravenously every 6 hours. Patient should start on January 01, 2024. - rosuvastatin (CRESTOR) 40 mg tablet Take 1 tablet by mouth daily at bedtime. - zinc oxide-cod liver oil (DESITIN 40%) 40 % paste Apply 1 application to affected area as needed. Problem List As Of Date 04/10/2024 Noted Resolved Diabetes mellitus type 2, uncontrolled (HCC) [I*01/22/2013 HTN (hypertension) [I10] 01/22/2013 Hyperlipidemia [E78.5] 01/22/2013 Occlusion and stenosis of unspecified carotid a*05/11/2015 PAD (peripheral artery disease) (HCC) [I73.9] 05/11/2015 Right lumbar radiculopathy [M54.16] 10/06/2015 Low back pain with right-sided sciatica [M54.41]10/06/2015 Pain in right hip [M25.551] 10/06/2015 Rectal cancer (HCC) [C20] 07/23/2019 CAD (coronary artery disease) [I25.10] 05/26/2020 Stenosis of right carotid artery [I65.21] 05/26/2020 Hist (more content not included)... Normal [facility] CNOVon 03-11-2024 CNOV Office Visit (UROLMD ) SILVIA,RICK ([id number]) 1955 M Date Time Provider Department 03/11/24 9:00 AM KENZIE DREW URORYNE During your visit today, we recorded the following information about you: Weight 49 kg Kenzie Drew APRN.CLOUD DEVELOPER, DNP 03/12/2024 11:03 AM Signed [facility] MALE PATIENT - HISTORY AND PHYSICAL EXAMINATION PATIENT: Isaias Vega (68 year old) 03/11/2024 PCP: Kendy Modi MD CHIEF COMPLAINT: LUTS HISTORY OF PRESENT ILLNESS: 68 year old year old male with LUTS. Past medical Hx: 2 CVA with left-sided hemiplegia, diabetes, skilled nursing anticoag - Eliquis, colorectal cancer, ileostomy for 3 years, LASHONDA, HTN, HLD, GERD, ALEJANDRO, RLS, MDD In LTCF in [place]. Had a stroke in 2008 and 2011. Using a walker since 2019, and in November had SBO that placed him in the hospital. Failed TOV x3. Was placed on Flomax which has not made a difference with TOV. Has chronic mackenzie in place. Now nonambulatory due to chronic medical conditions and recent hospitalization. Performing rehab. Was transported by ambulance service. PRESENTING HISTORY: Hematuria: none Urinary retention: yes Urinary tract infection: no Patient Entered Questionnaires: PROMIS Global Health 11/09/2015 12/10/2015 07/26/2020 PROMIS Global Health Scale Physical Health Percentile 2 2 4 Mental Health Percentile 9 2 5 Percentiles provide an indication of how the patient's score ranks in relation to the general population. Higher percentile rankings indicate better function/quality of life. 50th percentile is the average of the general population and indicates half of respondents had a worse score. 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 PAST SURGICAL HISTORY No date: ANGIOPLASTY CAROTID ARTERY [facility] Comment: Rt side 2008: CABG (5) VENOUS GRAFTS AND ARTERIAL GRAFT(S) 01/03/15: CC CORONARY STENT No date: EXCISION TONSIL LESIONS BILATERAL No date: HERNIA REPAIR HX 2010: PAST SURGICAL HISTORY OF Comment: RCEA 12/07/2023: PICC LINE INSERT/CONSULT 07-01-15: REVSC OPN/PRG FEM/POP W/ANGIOPLASTY UNI; Right 08-14-15: REVSC OPN/PRG FEM/POP W/ANGIOPLASTY UNI 07-01-15: REVSC OPN/PRQ TIB/DIANNA W/ANGIOPLASTY UNI; Right 08-14-15: REVSC OPN/PRQ TIB/DIANNA W/ANGIOPLASTY UNI Social History Tobacco Use Smoking status: Never Passive exposure: Never Smokeless tobacco: Never Vaping Use Vaping Use: Never used Substance Use Topics Alcohol use: No Drug use: No FAMILY HISTORY Problem Relation Age of Onset Diabetes Mother Cancer Mother 40 breast Coronary Artery Disease Father Hypertension Father Lipids Father Cancer Father 57 leukemia MEDICATIONS: Current Outpatient Medications Medication Sig tamsulosin (FLOMAX) 0.4 mg Take 0.8 mg by mouth once daily. clopidogrel (PLAVIX) 75 mg tablet Take 1 tablet by mouth once daily. acetaminophen (TYLENOL) 325 mg tablet Take 2 tablets by mouth every 6 hours. amLODIPine (NORVASC) 10 mg tablet Take 1 tablet by mouth once daily. aspirin 81 mg chewable tablet Take 1 tablet by mouth once daily. carvedilol (COREG) 12.5 mg tablet Take 1 tablet by mouth two times a day. dextrose (TRUEPLUS) 15 gram/32 mL oral gel Take 32 mL by mouth as needed. DULoxetine (CYMBALTA) 60 mg capsule Take 1 capsule by mouth daily at bedtime. insulin glargine 100 unit/mL (3 mL) Inject 30 Units subcutaneously every morning. insulin lispro 100 unit/mL injection Inject 3 Units subcutaneously with meals. ipratropium-albuterol (DUONEB) 0.5 mg-3 mg(2.5 mg base)/3 mL nebu Inhale 3 mL as instructed every 6 hours as needed for wheezing/shortness of breath. labetalol (NORMODYNE) 5 mg/mL injection Inject 1 mL intravenously every 4 hours as needed (SBP > 160 only if HR < 90). lidocaine (SALONPAS) 4 % patch Apply 1 Patch as directed once daily. OLANZapine orally disintegrating (ZYPREXA ZYDIS) 5 mg disintegrating tablet Take 0.5 tablets by mouth every 8 hours as needed. ondansetron, PF, (ZOFRAN) 4 mg/2 mL soln Inject 4 mg intravenously every 6 hours as needed. pantoprazole DR (PROTONIX) 40 mg tablet Take 1 tablet by mouth daily at 6 am. piperacillin-tazobacta m (ZOSYN) 3.375 gram/50 mL in dextrose (iso-osmotic) Inject 50 mL intravenously every 6 hours. Patient should start on January 01, 2024. rosuvastatin (CRESTOR) 40 mg tablet Take 1 tablet by mouth daily at bedtime. zinc oxide-cod liver oil (DESITIN 40%) 40 % paste Apply 1 application to affected area as needed. melatonin 3 mg tablet Take 2 tablets by mouth one time only (more content not included)... Normal [facility] ISAIAS VEGA ([id number]) 1955 M Date Time Provider Department 01/31/24 GREGORIO VILLALOBOS During your visit today, we recorded the following information about you: Gregorio Villalobos RN 01/31/2024 2:38 PM Signed [facility] COORDIN[facility] TELEPHONE ENCOUNTER Spoke to nurse practitioner regarding in person vs virtual follow up visit. From a surgical standpoint and wound check the pt can do a virtual visit per Dr. Kimble. Allergies As of Date: 01/31/2024 (No Known Allergies) Date Reviewed: 12/29/2023 Reviewed by: Ivone Mcneil RN - Fully Assessed Reason for Visit: Phone encounter [Other] Prescriptions as of 01/31/2024 - clopidogrel (PLAVIX) 75 mg tablet Take 1 tablet by mouth once daily. - acetaminophen (TYLENOL) 325 mg tablet Take 2 tablets by mouth every 6 hours. - amLODIPine (NORVASC) 10 mg tablet Take 1 tablet by mouth once daily. - aspirin 81 mg chewable tablet Take 1 tablet by mouth once daily. - carvedilol (COREG) 12.5 mg tablet Take 1 tablet by mouth two times a day. - dextrose (TRUEPLUS) 15 gram/32 mL oral gel Take 32 mL by mouth as needed. - DULoxetine (CYMBALTA) 60 mg capsule Take 1 capsule by mouth daily at bedtime. - insulin glargine 100 unit/mL (3 mL) Inject 30 Units subcutaneously every morning. - insulin lispro 100 unit/mL injection Inject 3 Units subcutaneously with meals. - ipratropium-albuterol (DUONEB) 0.5 mg-3 mg(2.5 mg base)/3 mL nebu Inhale 3 mL as instructed every 6 hours as needed for wheezing/shortness of breath. - labetalol (NORMODYNE) 5 mg/mL injection Inject 1 mL intravenously every 4 hours as needed (SBP > 160 only if HR < 90). - lidocaine (SALONPAS) 4 % patch Apply 1 Patch as directed once daily. - melatonin 3 mg tablet Take 2 tablets by mouth one time only for 1 dose. - OLANZapine orally disintegrating (ZYPREXA ZYDIS) 5 mg disintegrating tablet Take 0.5 tablets by mouth every 8 hours as needed. - ondansetron, PF, (ZOFRAN) 4 mg/2 mL soln Inject 4 mg intravenously every 6 hours as needed. - pantoprazole DR (PROTONIX) 40 mg tablet Take 1 tablet by mouth daily at 6 am. - piperacillin-tazobacta m (ZOSYN) 3.375 gram/50 mL in dextrose (iso-osmotic) Inject 50 mL intravenously every 6 hours. Patient should start on January 01, 2024. - rosuvastatin (CRESTOR) 40 mg tablet Take 1 tablet by mouth daily at bedtime. - zinc oxide-cod liver oil (DESITIN 40%) 40 % paste Apply 1 application to affected area as needed. Problem List As Of Date 01/31/2024 Noted Resolved Diabetes mellitus type 2, uncontrolled ([facility]) [I*01/22/2013 HTN (hypertension) [I10] 01/22/2013 Hyperlipidemia [E78.5] 01/22/2013 Occlusion and stenosis of unspecified carotid a*05/11/2015 PAD (peripheral artery disease) ([facility]) [I73.9] 05/11/2015 Right lumbar radiculopathy [M54.16] 10/06/2015 Low back pain with right-sided sciatica [M54.41]10/06/2015 Pain in right hip [M25.551] 10/06/2015 Rectal cancer ([facility]) [C20] 07/23/2019 CAD (coronary artery disease) [I25.10] 05/26/2020 Stenosis of right carotid artery [I65.21] 05/26/2020 History of CVA in adulthood [Z86.73] 05/26/2020 Neuropathy [G62.9] 05/26/2020 GERD (gastroesophageal reflux disease) [K21.9] 05/26/2020 Anxiety and depression [F41.9, F32.A] 05/26/2020 Chronic renal insufficiency [N18.9] 05/26/2020 ALEJANDRO on CPAP [G47.33] 05/26/2020 Acute postoperative pain [G89.18] 05/26/[address] (HCC) [Z93.3] 05/26/2020 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/anti*1 Small bowel obstruction (HCC) [K56.609] 12/02/2023 12/04/2023 Severe protein-calorie malnutrition (HCC) [E43] 12/04/2023 Type 2 diabetes mellitus with hyperglycemia, wi*12/06/2023 S/P small bowel resection [Z90.49] 12/08/2023 Feeding difficulties [R63.30] 12/08/2023 On total parenteral nutrition (TPN) [Z78.9] 12/08/2023 Therapeutic drug monitoring [Z51.81] 12/08/2023 Severe protein-calorie malnutrition (Kim: les*12/08/2023 Insulin dose changed (HCC) [Z79.4] 12/09/2023 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] 12/10/2023 Hypophosphataemia [E83.39] 12/12/2023 Hypomagnesemia [E83.42] 12/13/2023 Ileus (HCC) [K56.7] 12/13/2023 Hyponatremia [E87.1] 12/15/2023 12/19/2023 Pelvic abscess in male (HCC) [K65.1] 12/15/2023 History of rectal cancer [Z85.048] 12/15/2023 Enterococcal infection [A49.1] 12/15/2023 Delirium [R41.0] 12/18/2023 Ischemia, bowel (HCC) [K55.9] 12/18/2023 On mechanically assisted ventilation (HCC) [Z99*12/18/2023 Acute postoperative respiratory insufficiency [*12/18/2023 Mesenteric ischemia (HCC) [K55.9] 12/18/2023 Electrolyte imbalance [E87.8] 12/19/2023 Encounter Status:Closed by GREGORIO VILLALOBOS on 01/31/24 Normal [facility] .Auto Diffon 01-12-2024 Basophil, Absolute 0.0 10 3/mcL Normal 0.0-0.3 [facility] ([place]) Comment on above: Performed By: #### C CASA GARAY, ANEU #### [address] [address] Basophils/100 WBC (Bld) 0.3 % Normal 0.0-2.5 [facility] ([place]) Comment on above: Performed By: #### C TANISHA, ADIFF, ANEU #### [address] [address] Eosinophil, Absolute 0.1 10 3/mcL Normal 0.0-0.7 [facility] ([place]) Comment on above: Performed By: #### C CASA GARAY, ANEU #### [address] [address] Eosinophils/100 WBC (Bld) 1.5 % Normal 0.0-6.0 [facility] ([place]) Comment on above: Performed By: #### C CASA GARAY, ANEU #### [address] [address] Lymphocyte, Absolute 1.0 10 3/mcL Normal 0.9-4.3 [facility] ([place]) Comment on above: Performed By: #### C CASA GARAY, ANEU #### [address] [address] Lymphocytes/100 WBC (Bld) 12.4 % Low 20.0-40.0 [facility] ([place]) Comment on above: Performed By: #### C CASA GARAY, ANEU #### [address] [address] Monocyte, Absolute 0.9 10 3/mcL Normal 0.1-1.4 [facility] ([place]) Comment on above: Performed By: #### C CASA GARAY, ANEU #### [address] [address] Monocytes/100 WBC (Bld) 11.2 % Normal 2.0-13.0 [facility] ([place]) Comment on above: Performed By: #### C CASA GARAY, ANEU #### [address] [address] Neutrophils/100 WBC (Bld) 74.6 % Normal 50.0-75.0 [facility] ([place]) Comment on above: Performed By: #### C CASA GARAY ANEU #### [place] [address] .NEUABSon 01-12-2024 Neutrophil, Absolute 6.0 10 3/mcL Normal 2.3-8.1 [facility] ([place]) Comment on above: Performed By: #### CASA SIN ANEU #### [place] [address] CBCon 01-12-2024 Erythrocyte distribution width (RBC) [Ratio] 17.5 % High 11.5-15.5 [facility] ([place]) Comment on above: Performed By: #### CASA SIN ANEU #### [place] [address] Hematocrit (Bld) [Volume fraction] 35.2 % Low 40.0-52.0 [facility] ([place]) Comment on above: Performed By: #### CASA SIN ANEU #### [place] [address] Hgb 11.9 G/dL Low 13.0-17.5 [facility] ([place] Comment on above: Performed By: #### CASA SIN ANEU #### [place] [address] MCH (RBC) [Entitic mass] 29.4 pg Normal 27.0-33.0 [facility] ([place] Comment on above: Performed By: #### CASA SIN ANEU #### [place] [address] MCHC 33.7 G/dL Normal 32.0-36.0 [facility] ([place] Comment on above: Performed By: #### CASA SIN ANEU #### [place] [address] MCV (RBC) [Entitic vol] 87.4 fL Normal 81.0-100.0 [facility] ([place]) Comment on above: Performed By: #### CASA SIN ANEU #### [address] [address] Platelet 571 10 3/mcL High 150-450 [facility] ([place]) Comment on above: Performed By: #### C CASA GARAY ANEU #### [place] [address] Platelet mean volume (Bld) [Entitic vol] 7.9 fL Normal 6.4-10.5 [facility] ([place]) Comment on above: Performed By: #### CASA SIN, ANEU #### [place] [address] RBC 4.03 10 6/mcL Low 4.50-6.00 [facility] ([place]) Comment on above: Performed By: #### CASA SIN ANEU #### [place] [address] WBC 8.1 10 3/mcL Normal 4.5-10.8 [facility] ([place]) Comment on above: Performed By: #### CASA SIN ANEU #### [place] [address] UAon 01-11-2024 Color (U) Yellow Normal [facility] ([place]) Comment on above: Order Comment: NO [place] ENDLESS BELT FINISHER!!!!! Performed By: #### CASA SIN ANEU #### [place] [address] Glucose (U) [Mass/Vol] 100 mg/dL Abnormal Negative [facility] ([place]) Comment on above: Order Comment: NO [place] ENDLESS BELT FINISHER!!!!! Performed By: #### CASA SIN, ANEU #### [place] [address] Ketones Ql (U) Negative Normal Neg-Trace [facility] ([place]) Comment on above: Order Comment: NO [place] ENDLESS BELT FINISHER!!!!! Performed By: #### CASA SIN, ANEU #### [place] [address] UA Appear Clear Normal Clear [facility] ([place]) Comment on above: Order Comment: NO [place] ENDLESS BELT FINISHER!!!!! Performed By: #### CASA SIN ANEU #### [address] [address] UA Blood Small Abnormal Neg-Trace [facility] ([place]) Comment on above: Order Comment: NO [place] ENDLESS BELT FINISHER!!!!! Performed By: #### C BC, ADIFF, ANEU #### [address] [address] UA Leuk Est Moderate Abnormal Negative [facility] ([place]) Comment on above: Order Comment: NO [place] ENDLESS BELT FINISHER!!!!! Performed By: #### C BC, ADIFF, ANEU #### [address] [address] UA Nitrite Negative Normal Negative [facility] ([place]) Comment on above: Order Comment: NO [place] ENDLESS BELT FINISHER!!!!! Performed By: #### C BC, ADIFF, ANEU #### [address] [address] UA pH 5.5 Normal 5.0 - 8.0 [facility] ([place]) Comment on above: Order Comment: NO [place] ENDLESS BELT FINISHER!!!!! Performed By: #### C BC, ADIFF, ANEU #### [address] [address] UA Protein 30 mg/dL Normal Negative [facility] ([place]) Comment on above: Order Comment: NO [place] ENDLESS BELT FINISHER!!!!! Performed By: #### C BC, ADIFF, ANEU #### [address] [address] UA Spec Grav 1.015 Normal 1.006-1.029 [facility] ([place]) Comment on above: Order Comment: NO [place] ENDLESS BELT FINISHER!!!!! Performed By: #### C BC, ADIFF, ANEU #### [address] [address] UA Specimen Type Straight Cath Normal [facility] ([place]) Comment on above: Order Comment: NO [place] ENDLESS BELT FINISHER!!!!! Performed By: #### C BC, ADIFF, ANEU #### [address] [address] UA Urobilinogen 0.2 E.U./dL Normal 0.2-1.0 [facility] ([place]) Comment on above: Order Comment: NO [place] ENDLESS BELT FINISHER!!!!! Performed By: #### C CASA GARAY, ANEU #### [place] [address] Urobilinogen (U) [Mass/Vol] Negative Normal Neg-Trace [facility] ([place] Comment on above: Order Comment: NO [place] ENDLESS BELT FINISHER!!!!! Performed By: #### C CASA GARAY, ANEU #### [place] [address] UAMICon 01-11-2024 UA Amorphus Trace Normal [facility] ([place] Comment on above: Performed By: #### C CASA GARAY, ANEU #### [place] [address] UA RBC 0-2 Normal 0-2 [facility] ([place] Comment on above: Performed By: #### CASA SIN, ANEU #### [place] [address] UA Renal Epithelial Rare Normal [facility] ([place]) Comment on above: Performed By: #### CASA SIN, ANEU #### [place] [address] UA Squam Epithelial Rare Normal 0-20 [facility] ([place]) Comment on above: Performed By: #### C CASA GARAY, ANEU #### [place] [address] UA WBC 25-50 Abnormal 0-5 [facility] ([place] Comment on above: Performed By: #### C CASA GARAY, ANEU #### [place] [address] UA Yeast 1+ /hpf Abnormal [facility] ([place] Comment on above: Performed By: #### CASA SIN, ANEU #### [place] [address] .Auto Diffon 01-08-2024 Basophil, Absolute 0.0 10 3/mcL Normal 0.0-0.3 [facility] ([place]) Comment on above: Performed By: #### C CASA GARAY, ANEU #### [facility] [address] [place] [address] Basophils/100 WBC (Bld) 0.3 % Normal 0.0-2.5 [facility] ([place]) Comment on above: Performed By: #### C BC, ADIFF, ANEU #### [address] [address] Eosinophil, Absolute 0.2 10 3/mcL Normal 0.0-0.7 [facility] ([place]) Comment on above: Performed By: #### C TANSIHA, ADSHRUTI, ANEU #### [address] [address] Eosinophils/100 WBC (Bld) 1.8 % Normal 0.0-6.0 [facility] ([place]) Comment on above: Performed By: #### C CASA GARAY, ANEU #### [address] [address] Lymphocyte, Absolute 0.7 10 3/mcL Low 0.9-4.3 [facility] ([place]) Comment on above: Performed By: #### C CASA GARAY, ANEU #### [address] [address] Lymphocytes/100 WBC (Bld) 8.0 % Low 20.0-40.0 [facility] ([place]) Comment on above: Performed By: #### C TANISHA, ADIFF, ANEU #### [address] [address] Monocyte, Absolute 0.7 10 3/mcL Normal 0.1-1.4 [facility] ([place]) Comment on above: Performed By: #### C CASA GARAY, ANEU #### [address] [address] Monocytes/100 WBC (Bld) 8.2 % Normal 2.0-13.0 [facility] ([place]) Comment on above: Performed By: #### C TANISHA ADIFF, ANEU #### [address] [address] Neutrophils/100 WBC (Bld) 81.7 % High 50.0-75.0 [facility] ([place]) Comment on above: Performed By: #### CASA SIN ANEU #### [address] [address] .GFRon 01-08-2024 GFR >60 Normal [facility] ([place]) Comment on above: Result Comment: GFR Population mean for , Non- Americans Ages 20-29 = 116 mL/min/1.73 sq.m. Ages 30-39 = 107 mL/min/1.73 sq.m. Ages 40-49 = 99 mL/min/1.73 sq.m. Ages 50-59 = 93 mL/min/1.73 sq.m. Ages 60-69 = 85 mL/min/1.73 sq.m. Ages 70+ = 75 mL/min/1.73 sq.m. Chronic Kidney Disease: Less than 60 mL/min/1.73 square meters End Stage Renal Disease: Less than 15 mL/min/1.73 square meters Performed By: #### CASA SIN ANEU #### [place] [address] GFR Non- >60 Normal [facility] ([place]) Comment on above: Result Comment: GFR Population mean for , Non- Americans Ages 20-29 = 116 mL/min/1.73 sq.m. Ages 30-39 = 107 mL/min/1.73 sq.m. Ages 40-49 = 99 mL/min/1.73 sq.m. Ages 50-59 = 93 mL/min/1.73 sq.m. Ages 60-69 = 85 mL/min/1.73 sq.m. Ages 70+ = 75 mL/min/1.73 sq.m. Chronic Kidney Disease: Less than 60 mL/min/1.73 square meters End Stage Renal Disease: Less than 15 mL/min/1.73 square meters Performed By: #### CASA SIN ANEU #### [address] [address] .NEUABSon 01-08-2024 Neutrophil, Absolute 6.8 10 3/mcL Normal 2.3-8.1 [facility] ([place]) Comment on above: Performed By: #### CASA SIN ANEU #### [address] [address] BMPon 01-08-2024 BUN/Creatinine Ratio 31.9 ratio High 10.0-22.0 [facility] ([place]) Comment on above: Performed By: #### CASA SIN, ANEU #### [address] [address] Calcium [Mass/Vol] 8.6 mg/dL Low 8.7-10.4 [facility] ([place]) Comment on above: Performed By: #### CASA SIN, ANEU #### [address] [address] Chloride [Moles/Vol] 100 mmol/L Normal 98-110 [facility] ([place]) Comment on above: Performed By: #### CASA SIN, ANEU #### [address] [address] CO2 [Moles/Vol] 25 mmol/L Normal 22-32 [facility] ([place]) Comment on above: Performed By: #### CASA SIN, ANEU #### [address] [address] Creatinine [Mass/Vol] 0.72 mg/dL Normal 0.60-1.40 [facility] ([place]) Comment on above: Performed By: #### CASA SIN, ANEU #### [address] [address] Electrolyte Balance 10.0 mEq/L Normal 4.0-15.0 [facility] ([place]) Comment on above: Performed By: #### CASA SIN, ANEU #### [address] [address] Glucose [Mass/Vol] 250 mg/dL High 82-115 [facility] ([place]) Comment on above: Performed By: #### CASA SIN, ANEU #### [address] [address] Potassium [Moles/Vol] 4.2 mmol/L Normal 3.5-5.0 [facility] ([place]) Comment on above: Performed By: #### CASA SIN ANEU #### [address] [address] Sodium [Moles/Vol] 135 mmol/L Low 136-145 [facility] ([place]) Comment on above: Performed By: #### CASA SIN ANEU #### [place] [id number] Urea nitrogen [Mass/Vol] 23.0 mg/dL High 8.0-22.0 [facility] ([place] Comment on above: Performed By: #### CASA SIN ANEU #### [address] [address] CBCon 01-08-2024 Erythrocyte distribution width (RBC) [Ratio] 17.4 % High 11.5-15.5 [facility] ([place] Comment on above: Performed By: #### CASA SIN ANEU #### [place] [id number] Hematocrit (Bld) [Volume fraction] 34.9 % Low 40.0-52.0 [facility] ([place] Comment on above: Performed By: #### CASA SIN ANEU #### [place] [id number] Hgb 11.7 G/dL Low 13.0-17.5 [facility] ([place] Comment on above: Performed By: #### CASA SIN, ANEU #### [place] [id number] MCH (RBC) [Entitic mass] 29.3 pg Normal 27.0-33.0 [facility] ([place] Comment on above: Performed By: #### CASA SIN, ANEU #### [place] [id number] MCHC 33.4 G/dL Normal 32.0-36.0 [facility] ([place] Comment on above: Performed By: #### CASA SIN, ANEU #### [place] [id number] MCV (RBC) [Entitic vol] 87.8 fL Normal 81.0-100.0 [facility] ([place]) Comment on above: Performed By: #### C CASA GARAY, ANEU #### [address] [address] Platelet 509 10 3/mcL High 150-450 [facility] ([place]) Comment on above: Performed By: #### C CASA GARAY, ANEU #### [address] [address] Platelet mean volume (Bld) [Entitic vol] 8.0 fL Normal 6.4-10.5 [facility] ([place] Comment on above: Performed By: #### C CASA GARAY, ANEU #### [address] [address] RBC 3.98 10 6/mcL Low 4.50-6.00 [facility] ([place] Comment on above: Performed By: #### C CASA GARAY, ANEU #### [address] [address] WBC 8.3 10 3/mcL Normal 4.5-10.8 [facility] ([place] Comment on above: Performed By: #### C CASA GARAY, ANEU #### [address] [address] .Auto Diffon 01-01-2024 Basophil, Absolute 0.1 10 3/mcL Normal 0.0-0.3 [facility] ([place] Comment on above: Performed By: #### A DIFF ANEU, CBC #### [address] [address] Basophils/100 WBC (Bld) 0.8 % Normal 0.0-2.5 [facility] ([place]) Comment on above: Performed By: #### A DIFF ANEU, CBC #### [address] [address] Eosinophil, Absolute 0.1 10 3/mcL Normal 0.0-0.7 [facility] ([place]) Comment on above: Performed By: #### A DIFF ANEU, CBC #### [address] [address] Eosinophils/100 WBC (Bld) 1.7 % Normal 0.0-6.0 [facility] ([place]) Comment on above: Performed By: #### A DIFF, ANEU, CBC #### [address] [address] Lymphocyte, Absolute 0.6 10 3/mcL Low 0.9-4.3 [facility] ([place]) Comment on above: Performed By: #### A DIFF, ANEU, CBC #### [address] [address] Lymphocytes/100 WBC (Bld) 8.5 % Low 20.0-40.0 [facility] ([place]) Comment on above: Performed By: #### A DIFF, ANEU, CBC #### [address] [address] Monocyte, Absolute 0.8 10 3/mcL Normal 0.1-1.4 [facility] ([place]) Comment on above: Performed By: #### A DIFF, ANEU, CBC #### [address] [address] Monocytes/100 WBC (Bld) 12.6 % Normal 2.0-13.0 [facility] ([place]) Comment on above: Performed By: #### A DIFF, ANEU, CBC #### [address] [address] Neutrophils/100 WBC (Bld) 76.4 % High 50.0-75.0 [facility] ([place]) Comment on above: Performed By: #### A DIFF, ANEU, CBC #### [address] [address] .GFRon 01-01-2024 GFR >60 Normal [facility] ([place]) Comment on above: Result Comment: GFR Population mean for , Non- Americans Ages 20-29 = 116 mL/min/1.73 sq.m. Ages 30-39 = 107 mL/min/1.73 sq.m. Ages 40-49 = 99 mL/min/1.73 sq.m. Ages 50-59 = 93 mL/min/1.73 sq.m. Ages 60-69 = 85 mL/min/1.73 sq.m. Ages 70+ = 75 mL/min/1.73 sq.m. Chronic Kidney Disease: Less than 60 mL/min/1.73 square meters End Stage Renal Disease: Less than 15 mL/min/1.73 square meters Performed By: #### B MP, GFR #### [address] [address] GFR Non- >60 Normal [facility] ([place] Comment on above: Result Comment: GFR Population mean for , Non- Americans Ages 20-29 = 116 mL/min/1.73 sq.m. Ages 30-39 = 107 mL/min/1.73 sq.m. Ages 40-49 = 99 mL/min/1.73 sq.m. Ages 50-59 = 93 mL/min/1.73 sq.m. Ages 60-69 = 85 mL/min/1.73 sq.m. Ages 70+ = 75 mL/min/1.73 sq.m. Chronic Kidney Disease: Less than 60 mL/min/1.73 square meters End Stage Renal Disease: Less than 15 mL/min/1.73 square meters Performed By: #### B MP, GFR #### [address] [address] .NEUABSon 01-01-2024 Neutrophil, Absolute 5.2 10 3/mcL Normal 2.3-8.1 [facility] ([place]) Comment on above: Performed By: #### A DIFF, ANEU, CBC #### [address] [address] BMPon 01-01-2024 BUN/Creatinine Ratio 25.4 ratio High 10.0-22.0 [facility] ([place] Comment on above: Performed By: #### B MP, GFR #### [address] [address] Calcium [Mass/Vol] 8.2 mg/dL Low 8.7-10.4 [facility] ([place] Comment on above: Performed By: #### B MP, GFR #### [address] [address] Chloride [Moles/Vol] 104 mmol/L Normal 98-110 [facility] ([place] Comment on above: Performed By: #### B MP, GFR #### [address] [address] CO2 [Moles/Vol] 28 mmol/L Normal 22-32 [facility] ([place]) Comment on above: Performed By: #### B MP, GFR #### [address] [address] Creatinine [Mass/Vol] 0.63 mg/dL Normal 0.60-1.40 [facility] ([place]) Comment on above: Performed By: #### B MP, GFR #### [address] [address] Electrolyte Balance 7.0 mEq/L Normal 4.0-15.0 [facility] ([place]) Comment on above: Performed By: #### B MP, GFR #### [address] [address] Glucose [Mass/Vol] 204 mg/dL High 82-115 [facility] ([place] Comment on above: Performed By: #### B MP, GFR #### [address] [address] Potassium [Moles/Vol] 3.6 mmol/L Normal 3.5-5.0 [facility] ([place]) Comment on above: Performed By: #### B MP, GFR #### [address] [address] Sodium [Moles/Vol] 139 mmol/L Normal 136-145 [facility] ([place]) Comment on above: Performed By: #### B MP, GFR #### [address] [address] Urea nitrogen [Mass/Vol] 16.0 mg/dL Normal 8.0-22.0 [facility] ([place] Comment on above: Performed By: #### B MP, GFR #### [address] [address] CBCon 01-01-2024 Erythrocyte distribution width (RBC) [Ratio] 17.8 % High 11.5-15.5 [facility] ([place] Comment on above: Performed By: #### A DIFF, ANEU, CBC #### [place] [address] Hematocrit (Bld) [Volume fraction] 29.4 % Low 40.0-52.0 [facility] ([place] Comment on above: Performed By: #### A DIFF, ANEU, CBC #### [place] [id number] Hgb 9.9 G/dL Low 13.0-17.5 [facility] ([place] Comment on above: Performed By: #### A DIFF, ANEU, CBC #### [place] [id number] MCH (RBC) [Entitic mass] 30.4 pg Normal 27.0-33.0 [facility] ([place]) Comment on above: Performed By: #### A DIFF, ANEU, CBC #### [place] [address] MCHC 33.6 G/dL Normal 32.0-36.0 [facility] ([place] Comment on above: Performed By: #### A DIFF, ANEU, CBC #### [place] [address] MCV (RBC) [Entitic vol] 90.4 fL Normal 81.0-100.0 [facility] ([place]) Comment on above: Performed By: #### A DIFF, ANEU, CBC #### [place] [address] Platelet 400 10 3/mcL Normal 150-450 [facility] ([place] Comment on above: Performed By: #### A DIFF, ANEU, CBC #### [place] [address] Platelet mean volume (Bld) [Entitic vol] 7.6 fL Normal 6.4-10.5 [facility] ([place]) Comment on above: Performed By: #### A DIFF, ANEU, CBC #### [place] [address] RBC 3.26 10 6/mcL Low 4.50-6.00 [facility] ([place] Comment on above: Performed By: #### A DIFF ANEU, CBC #### [address] [address] WBC 6.8 10 3/mcL Normal 4.5-10.8 [facility] ([place] Comment on above: Performed By: #### A DIFF ANEU, CBC #### [address] [address] MGon 12-31-2023 Magnesium [Mass/Vol] 1.4 mg/dL Low 1.6-2.4 [facility] ([place]) Comment on above: Performed By: #### C CASA GARAY, ANEU #### [address] [address] .Auto Diffon 12-30-2023 Basophil, Absolute 0.0 10 3/mcL Normal 0.0-0.3 [facility] ([place]) Comment on above: Performed By: #### C CASA GARAY ANEU #### [address] [address] Basophils/100 WBC (Bld) 0.4 % Normal 0.0-2.5 [facility] ([place]) Comment on above: Performed By: #### C CASA GARAY ANEU #### [address] [address] Eosinophil, Absolute 0.2 10 3/mcL Normal 0.0-0.7 [facility] ([place]) Comment on above: Performed By: #### C BCCASA, ANEU #### [address] [address] Eosinophils/100 WBC (Bld) 2.2 % Normal 0.0-6.0 [facility] ([place] Comment on above: Performed By: #### C CASA GARAY, ANEU #### [address] [address] Lymphocyte, Absolute 0.5 10 3/mcL Low 0.9-4.3 [facility] ([place]) Comment on above: Performed By: #### C BCCASA, ANEU #### [address] [address] Lymphocytes/100 WBC (Bld) 7.1 % Low 20.0-40.0 [facility] ([place] Comment on above: Performed By: #### C CASA GARAY ANEU #### [address] [address] Monocyte, Absolute 0.7 10 3/mcL Normal 0.1-1.4 [facility] ([place] Comment on above: Performed By: #### C CASA GARAY ANEU #### [address] [address] Monocytes/100 WBC (Bld) 9.3 % Normal 2.0-13.0 [facility] ([place]) Comment on above: Performed By: #### CASA SIN ANEU #### [address] [address] Neutrophils/100 WBC (Bld) 81.0 % High 50.0-75.0 [facility] ([place] Comment on above: Performed By: #### CASA SIN ANEU #### [address] [address] .GFRon 12-30-2023 GFR >60 Normal [facility] ([place] Comment on above: Result Comment: GFR Population mean for , Non- Americans Ages 20-29 = 116 mL/min/1.73 sq.m. Ages 30-39 = 107 mL/min/1.73 sq.m. Ages 40-49 = 99 mL/min/1.73 sq.m. Ages 50-59 = 93 mL/min/1.73 sq.m. Ages 60-69 = 85 mL/min/1.73 sq.m. Ages 70+ = 75 mL/min/1.73 sq.m. Chronic Kidney Disease: Less than 60 mL/min/1.73 square meters End Stage Renal Disease: Less than 15 mL/min/1.73 square meters Performed By: #### C CASA GARAY, ANEU #### [address] [address] GFR Non- >60 Normal [facility] ([place]) Comment on above: Result Comment: GFR Population mean for , Non- Americans Ages 20-29 = 116 mL/min/1.73 sq.m. Ages 30-39 = 107 mL/min/1.73 sq.m. Ages 40-49 = 99 mL/min/1.73 sq.m. Ages 50-59 = 93 mL/min/1.73 sq.m. Ages 60-69 = 85 mL/min/1.73 sq.m. Ages 70+ = 75 mL/min/1.73 sq.m. Chronic Kidney Disease: Less than 60 mL/min/1.73 square meters End Stage Renal Disease: Less than 15 mL/min/1.73 square meters Performed By: #### C CASA GARAY ANEU #### [place] [address] .NEUABSon 12-30-2023 Neutrophil, Absolute 5.7 10 3/mcL Normal 2.3-8.1 [facility] ([place]) Comment on above: Performed By: #### C CASA GARAY ANEU #### [place] [address] CBCon 12-30-2023 Erythrocyte distribution width (RBC) [Ratio] 18.1 % High 11.5-15.5 [facility] ([place]) Comment on above: Performed By: #### C CASA GARAY ANEU, CMP, GFR #### [place] [address] Hematocrit (Bld) [Volume fraction] 30.5 % Low 40.0-52.0 [facility] ([place] Comment on above: Performed By: #### C BCCASA ANEU, CMP, GFR #### [place] [address] Hgb 10.3 G/dL Low 13.0-17.5 [facility] ([place] Comment on above: Performed By: #### C BCCASA ANEU, CMP, GFR #### [place] [address] MCH (RBC) [Entitic mass] 30.7 pg Normal 27.0-33.0 [facility] ([place] Comment on above: Performed By: #### C BC, ADIFF, ANEU, CMP, GFR #### [address] [address] MCHC 33.7 G/dL Normal 32.0-36.0 [facility] ([place] Comment on above: Performed By: #### C BC, ADIFF, ANEU, CMP, GFR #### [address] [address] MCV (RBC) [Entitic vol] 91.0 fL Normal 81.0-100.0 [facility] ([place]) Comment on above: Performed By: #### C BC, ADIFF, ANEU, CMP, GFR #### [place] [address] Platelet 414 10 3/mcL Normal 150-450 [facility] ([place] Comment on above: Performed By: #### C BC, ADIFF, ANEU, CMP, GFR #### [place] [address] Platelet mean volume (Bld) [Entitic vol] 8.0 fL Normal 6.4-10.5 [facility] ([place]) Comment on above: Performed By: #### C BC, ADIFF, ANEU, CMP, GFR #### [place] [id number] RBC 3.35 10 6/mcL Low 4.50-6.00 [facility] ([place] Comment on above: Performed By: #### C BC, ADIFF, ANEU, CMP, GFR #### [place] [id number] WBC 7.0 10 3/mcL Normal 4.5-10.8 [facility] ([place] Comment on above: Performed By: #### C BC, ADIFF, ANEU, CMP, GFR #### [place] [id number] CMPon 12-30-2023 Albumin Level 1.8 G/dL Low 3.2-4.8 [facility] ([place] Comment on above: Performed By: #### C BC, ADIFF, ANEU #### [place] [address] Albumin/Globulin [Mass ratio] 0.5 {ratio} Low 0.9-1.6 [facility] ([place]) Comment on above: Performed By: #### C CASA GARAY ANEU #### [address] [address] ALP [Catalytic activity/Vol] 267 U/L High 38-126 [facility] ([place]) Comment on above: Performed By: #### CASA SNI, ANEU #### [address] [address] ALT [Catalytic activity/Vol] 31 U/L Normal 12-55 [facility] ([place]) Comment on above: Performed By: #### CASA SIN ANEU #### [address] [address] AST [Catalytic activity/Vol] 29 U/L Normal 8-34 [facility] ([place]) Comment on above: Performed By: #### CASA SIN ANEU #### [place] [id number] Bili Total 1.20 mg/dL Normal 0.20-1.20 [facility] ([place]) Comment on above: Result Comment: Use of this assay is not recommended for patients undergoing treatment with eltrombopag due to the potential for falsely elevated results. Performed By: #### CASA SIN ANEU #### [address] [address] BUN/Creatinine Ratio 33.3 ratio High 10.0-22.0 [facility] ([place]) Comment on above: Performed By: #### CASA SIN, ANEU #### [address] [address] Calcium [Mass/Vol] 8.0 mg/dL Low 8.7-10.4 [facility] ([place]) Comment on above: Performed By: #### CASA SIN, ANEU #### [address] [address] Chloride [Moles/Vol] 105 mmol/L Normal 98-110 [facility] ([place] Comment on above: Performed By: #### CASA SIN, ANEU #### [address] [address] CO2 [Moles/Vol] 27 mmol/L Normal 22-32 [facility] ([place]) Comment on above: Performed By: #### CASA SIN ANEU #### [address] [address] Creatinine [Mass/Vol] 0.66 mg/dL Normal 0.60-1.40 [facility] ([place]) Comment on above: Performed By: #### CASA SIN ANEU #### [address] [address] Electrolyte Balance 4.0 mEq/L Normal 4.0-15.0 [facility] ([place]) Comment on above: Performed By: #### CASA SIN ANEU #### [address] [address] Globulin 3.4 G/dL Normal 1.5-3.8 [facility] ([place] Comment on above: Performed By: #### CASA SIN ANEU #### [address] [address] Glucose [Mass/Vol] 127 mg/dL High 82-115 [facility] ([place]) Comment on above: Performed By: #### CASA SIN ANEU #### [address] [address] Potassium [Moles/Vol] 4.3 mmol/L Normal 3.5-5.0 [facility] ([place]) Comment on above: Performed By: #### CASA SIN ANEU #### [address] [address] Sodium [Moles/Vol] 136 mmol/L Normal 136-145 [facility] ([place]) Comment on above: Performed By: #### CASA SIN ANEU #### [address] [address] Total Protein 5.2 G/dL Low 5.7-8.2 [facility] ([place]) Comment on above: Result Comment: No te - New Reference Range in effect 20 Performed By: #### C CASA GARAY ANEU #### [facility] [address] [place] [id number] Urea nitrogen [Mass/Vol] 22.0 mg/dL Normal 8.0-22.0 [facility] ([place] Comment on above: Performed By: #### C CASA GARAY ANEU #### [address] [address] XR CHEST 1 VIEWon 12-30-2023 XR CHEST 1 VIEW ORIGINAL EXAMINATION: ONE XRAY VIEW OF THE CHEST 12/30/2023 7:22 am COMPARISON: None. HISTORY: ORDERING SYSTEM PROVIDED HISTORY: Reason for Exam: Resp COPD FINDINGS: Hazy airspace disease at the right lung base. Atherosclerotic calcification of the aorta is noted. No pneumothorax. No large effusion. Heart size is normal. Remote left humeral neck/shaft fracture with malunion. IMPRESSION: Mild hazy airspace disease at the right lung base. Otherwise no acute findings. Interpreted by: Cosme Zavala MD Preliminary Report By: Cosme Zavala MD Electronically signed By Cosme Zavala MD Dictated Date: 12/30/2023 7:57:11 AM Prelim Date: 12/30/2023 8:01:23 AM Sign Date: 12/30/2023 8:01:23 AM Ordering Provider: DIEGO Kaufman [facility] ([place]) Absolute lymphocyte countOrd ered By: Dwayne Marshall on 12-01-2023 Lymphocytes Auto (Unsp spec) [#/Vol] 0.74 10*3/uL 0.83-4.51 [facility] Absolute lymphocyte countOrd ered By: Manisha Ford on 12-01-2023 Lymphocytes Auto (Unsp spec) [#/Vol] 0.83 10*3/uL 0.83-4.51 [facility] Automated lymphocyte count a s percentage of total leukocytesOrdered By: Dwayne Marshall on 12-01-2023 Lymphocytes/100 WBC Auto (Unsp spec) 4.7 % 19-41 [facility] Basophil percentageOrdered B y: Dwayne Marshall on 12-01-2023 Basophil percentage 0 SEEN /hpf 0-[facility] Basophils/100 WBC (Bld) 0.3 % 0-1 [facility] Bilirubin [Mass/Vol] 0.60 mg/dL 0.20-1.00 [facility] Comment on above: For patients on eltr ombopag therapy, use of Dimension Capitola TBIL is not recommended. Chloride [Moles/Vol] 99 mmol/L 98-107 [facility] Eosinophils/100 WBC (Bld) 0.1 % 0-5 [facility] Glucose [Mass/Vol] 233 mg/dL 74-106 [facility] Comment on above: Glucose result great er than or equal to 200 mg/dLsuggests DIABETES MELLITUS per A.D.A. criteria. Hemoglobin (Bld) [Mass/Vol] 9.8 g/dL 13.0-16.5 [facility] Monocytes/100 WBC (Bld) 6.8 % 0-[address] [facility] Neutrophils (Bld) [#/Vol] 13.8 10*3/uL 2.0-7.7 [facility] Neutrophils/100 WBC (Bld) 87.6 % 47-70 [facility] Potassium [Moles/Vol] 4.2 mmol/L 3.5-5.1 [facility] Protein [Mass/Vol] 7.0 g/dL 6.4-8.2 [facility] WBC (Bld) [#/Vol] 15.8 10*3/uL 4.4-11.0 [facility] Sodium [Moles/Vol] 133 mmol/L 136-145 [facility] Basophil percentageOrdered B y: Manisha Ford on 12-01-2023 Basophils/100 WBC (Bld) 0.4 % 0-1 [facility] Chloride [Moles/Vol] 97 mmol/L 98-107 [facility] Eosinophils/100 WBC (Bld) 0.5 % 0-5 [facility] Glucose [Mass/Vol] 211 mg/dL 74-106 [facility] Comment on above: Glucose result great er than or equal to 200 mg/dLsuggests DIABETES MELLITUS per A.D.A. criteria. Hemoglobin (Bld) [Mass/Vol] 10.3 g/dL 13.0-16.5 [facility] Monocytes/100 WBC (Bld) 8.1 % 0-10 [facility] Neutrophils (Bld) [#/Vol] 15.0 10*3/uL 2.0-7.7 [facility] Neutrophils/100 WBC (Bld) 85.6 % 47-70 [facility] Potassium [Moles/Vol] 4.5 mmol/L 3.5-5.1 [facility] WBC (Bld) [#/Vol] 17.5 10*3/uL 4.4-11.0 [facility] Bilirubin Test strip Ql (U)O rdered By: Dwayne Marshall on 12-01-2023 Bilirubin Ql (U) Negative Negative [facility] Blood manual differential co mment interpretation (narrative result)Ordered By: Manisha Ford on 12-01-2023 Manual differential comment Jordy (Bld) [Interp] SCANNED [facility] Determination of erythrocyte mean corpuscular volume (MCV)Ordered By: Dwayne Marshall on 12-01-2023 MCV (RBC) [Entitic vol] 87.2 fL 80-94 [facility] Determination of erythrocyte mean corpuscular volume (MCV)Ordered By: Manisha Ford on 12-01-2023 MCV (RBC) [Entitic vol] 86.4 fL 80-94 [facility] Erythrocyte distribution wid th ratioOrdered By: Dwayne Marshall on 12-01-2023 Erythrocyte distribution width (RBC) [Ratio] 15.9 % 11.6-14.6 [facility] Erythrocyte distribution wid th ratioOrdered By: Manisha Ford on 12-01-2023 Erythrocyte distribution width (RBC) [Ratio] 16.1 % 11.6-14.6 [facility] Erythrocyte distribution wid th standard deviationOrdered By: Dwayne Marshall on 12-01-2023 Erythrocyte distribution width (RBC) [Entitic vol] 50.8 fL 35.1-43.9 [facility] Erythrocyte distribution wid th standard deviationOrdered By: Manisha Ford on 12-01-2023 Erythrocyte distribution width (RBC) [Entitic vol] 50.4 fL 35.1-43.9 [facility] Hematocrit Auto (Bld) [Volum e fraction]Ordered By: Dwayne Marshall on 12-01-2023 Hematocrit (Bld) [Volume fraction] 30.6 % 40- [facility] Hematocrit Auto (Bld) [Volum e fraction]Ordered By: Manisha Ford on 12-01-2023 Hematocrit (Bld) [Volume fraction] 33.0 % 40-54 [facility] Immature granulocytes/100 WB C Auto (Bld)Ordered By: Dwayne Marshall on 12-01-2023 Immature granulocytes/100 WBC (Bld) 0.500 % 0.0-0.9 [facility] Comment on above: IG% - Immature Granu locytes (promyelocytes, myelocytes and metamyelocytes) > 1% indicates that a LEFT SHIFT is Present. Immature granulocytes/100 WB C Auto (Bld)Ordered By: Manisha Ford on 12-01-2023 Immature granulocytes/100 WBC (Bld) 0.700 % 0.0-0.9 [facility] Comment on above: IG% - Immature Granu locytes (promyelocytes, myelocytes and metamyelocytes) > 1% indicates that a LEFT SHIFT is Present. Ketones Test strip Ql (U)Ord ered By: Dwayne Marshall on 12-01-2023 Ketones Ql (U) Negative Negative [facility] Laboratory - Chemistry and C hemistry - challengeOrdered By: Dwayne Marshall on 12-01-2023 Albumin/Globulin [Mass ratio] 0.5 {ratio} 0.9-2.4 [facility] ALP [Catalytic activity/Vol] 101 U/L 45-117 [facility] ALT [Catalytic activity/Vol] 295 U/L 16-61 [facility] CO2 [Moles/Vol] 29.0 mmol/L 21.0-32.0 [facility] Globulin (S) [Mass/Vol] 4.6 g/dL 2.2-4.2 [facility] Lipase [Catalytic activity/Vol] 21 U/L 13-75 [facility] Comment on above: Please note:LIPASE r evised reference range effective 22. New Lipase methodology. Expected to produce lower values than the previous assay method. NEW Reference Range: 13 - 75 U/L Urea nitrogen/Creatinine [Mass ratio] 36.9 mg/mg 10-20 [facility] Laboratory - Chemistry and C hemistry - challengeOrdered By: Manisha Ford on 12-01-2023 CO2 [Moles/Vol] 28.0 mmol/L 21.0-32.0 [facility] Urea nitrogen/Creatinine [Mass ratio] 37.2 mg/mg 10-20 [facility] Laboratory - CoagulationOrde red By: Dwayne Marshall on 12-01-2023 INR Coag (Bld) [Relative time] 2.3 {INR} [facility] PT Coag (PPP) [Time] 25.0 s 11.7-14.9 [facility] Laboratory - Hematology and Cell countsOrdered By: Dwayne Marshall on 12-01-2023 MCH (RBC) [Entitic mass] 27.9 pg 27.0-32.0 [facility] MCHC (RBC) [Mass/Vol] 32.0 g/dL 32- [facility] Nucleated RBC/100 WBC (Bld) [Ratio] 0.1 % 0-5 [facility] Platelet mean volume (Bld) [Entitic vol] 10.5 fL 6.2-12.0 [facility] Platelets (Bld) [#/Vol] 350 10*3/uL 150-450 [facility] Laboratory - Hematology and Cell countsOrdered By: Manisha Ford on 12-01-2023 MCH (RBC) [Entitic mass] 27.0 pg 27.0-32.0 [facility] MCHC (RBC) [Mass/Vol] 31.2 g/dL 32- [facility] Nucleated RBC/100 WBC (Bld) [Ratio] 0 % 0-5 [facility] Platelet mean volume (Bld) [Entitic vol] 11.0 fL 6.2-12.0 [facility] Platelets (Bld) [#/Vol] 363 10*3/uL 150-450 [facility] Mucus LM Ql (Urine sed)Order ed By: Dwayne Marshall on 12-01-2023 Mucus Ql (Urine sed) 0 SEEN /hpf [facility] Nitrite Test strip Ql (U)Ord ered By: Dwayne Marshall on 12-01-2023 Nitrite Ql (U) Negative Negative [facility] No Panel InformationOrdered By: Dwayne Marshall on 12-01-2023 Urine RBC 0 SEEN /hpf 0-5 [facility] Estimated Creatinine Clearance Calc 47.55 ml/min [facility] Estimated GFR (MDRD) Amer 71 mL/min >60 [facility] Comment on above: GFR Calc Estimated GFR (MDRD) Non-Af Amer 59 mL/min >60 [facility] Comment on above: Non- GFR Calc No Panel InformationOrdered By: Manisha Ford on 12-01-2023 Estimated GFR (MDRD) Amer 72 mL/min >60 [facility] Comment on above: GFR Calc Protein Test strip Ql (U)Ord ered By: Dwayne Marshall on 12-01-2023 Protein Ql (U) 15 mg/dl Negative [facility] RBC Auto (Bld) [#/Vol]Ordere d By: Dwayne Marshall on 12-01-2023 RBC (Bld) [#/Vol] 3.51 10*6/uL 4.6-6.2 [facility] RBC Auto (Bld) [#/Vol]Ordere d By: Manisha Ford on 12-01-2023 RBC (Bld) [#/Vol] 3.82 10*6/uL 4.6-6.2 [facility] Serum or plasma calcium isael urement (mass/volume)Ordered By: Dwayne Marshall on 12-01-2023 Calcium [Mass/Vol] 9.1 mg/dL 8.5-10.1 [facility] Serum or plasma calcium isael urement (mass/volume)Ordered By: Manisha Ford on 12-01-2023 Calcium [Mass/Vol] 9.5 mg/dL 8.5-10.1 [facility] Serum or plasma creatinine m easurement (mass/volume)Ordered By: Dwayne Marshall on 12-01-2023 Creatinine [Mass/Vol] 1.30 mg/dL 0.70-1.30 [facility] Comment on above: The validity of the calculated GFR & GFRAA in patients over 70 years has not been determined. Clinical correlation is essential. Serum or plasma creatinine m easurement (mass/volume)Ordered By: Manisha Ford on 12-01-2023 Creatinine [Mass/Vol] 1.29 mg/dL 0.70-1.30 [facility] Comment on above: The validity of the calculated GFR & GFRAA in patients over 70 years has not been determined. Clinical correlation is essential. Serum or plasma urea nitroge n measurement (mass/volume)Ordered By: Dwayne Marshall on 12-01-2023 Urea nitrogen [Mass/Vol] 48 mg/dL 7-18 [facility] Squamous epithelial cells de tection in urine sediment by light microscopyOrdered By: Dwayne Marshall on 12-01-2023 Epithelial cells.squamous LM Ql (Urine sed) 0 SEEN /hpf 0-5 [facility] Thin prep Papanicolaou smear with manual screeningOrdered By: Dwayne Marshall on 12-01-2023 Thin prep Papanicolaou smear with manual screening 2.4 g/dL 3.2-5.0 [facility] Thin prep Papanicolaou smear with manual screening 268 U/L 15-37 [facility] Thin prep Papanicolaou smear with manual screening 5 5-15 [facility] Thin prep Papanicolaou smear with manual screeningOrdered By: Manisha Ford on 12-01-2023 Thin prep Papanicolaou smear with manual screening 8 5-15 [facility] Urine blood detectionOrdered By: Dwayne Marshall on 12-01-2023 RBC Ql (U) 10 /ul Negative [facility] Urine clarityOrdered By: Amy Marshall on 12-01-2023 Clarity (U) Clear Clear [facility] Urine color determinationOrd ered By: Dwayne Marshall on 12-01-2023 Color (U) Yellow Yellow [facility] Urine glucose detectionOrder ed By: Dwayne Marshall on 12-01-2023 Glucose Ql (U) Normal mg/dl Normal [facility] Urine leukocyte esterase det ection by dipstickOrdered By: Dwayne Marshall on 12-01-2023 Leukocyte esterase Test strip Ql (U) Negative Negative [facility] Urine pHOrdered By: Dwayne vora on 12-01-2023 pH (U) 5.0 [pH] 5.0 - 8.0 [facility] Urine sediment bacteria coun t by microscopy (number/high power field)Ordered By: Dwayne Marshall on 12-01-2023 Bacteria LM.HPF (Urine sed) [#/Area] 0 /[HPF] None Seen [facility] Urine specific gravity measu rementOrdered By: Dwayne Marshall on 12-01-2023 Specific gravity (U) [Rel density] 1.010 1.002-1.030 [facility] Urine urobilinogen measureme ntOrdered By: Dwayne Marshall on 12-01-2023 Urobilinogen Ql (U) Normal mg/dl Normal [facility] Absolute lymphocyte countOrd ered By: Manisha Ford on 11-29-2023 Lymphocytes Auto (Unsp spec) [#/Vol] 0.86 10*3/uL 0.83-4.51 [facility] Automated lymphocyte count a s percentage of total leukocytesOrdered By: Manisha Ford on 11-29-2023 Lymphocytes/100 WBC Auto (Unsp spec) 6.7 % 19-41 [facility] Basophil percentageOrdered B y: Manisha Ford on 11-29-2023 Basophils/100 WBC (Bld) 0.2 % 0-1 [facility] Bilirubin [Mass/Vol] 0.70 mg/dL 0.20-1.00 [facility] Comment on above: For patients on eltr ombopag therapy, use of Dimension Capitola TBIL is not recommended. Chloride [Moles/Vol] 99 mmol/L 98-107 [facility] Eosinophils/100 WBC (Bld) 0.2 % 0-5 [facility] Glucose [Mass/Vol] 203 mg/dL 74-106 [facility] Comment on above: Glucose result great er than or equal to 200 mg/dLsuggests DIABETES MELLITUS per A.D.A. criteria. Hemoglobin (Bld) [Mass/Vol] 10.8 g/dL 13.0-16.5 [facility] Monocytes/100 WBC (Bld) 7.9 % 0-10 [facility] Neutrophils (Bld) [#/Vol] 10.9 10*3/uL 2.0-7.7 [facility] Neutrophils/100 WBC (Bld) 84.6 % 47-70 [facility] Potassium [Moles/Vol] 4.4 mmol/L 3.5-5.1 [facility] Protein [Mass/Vol] 7.5 g/dL 6.4-8.2 [facility] Sodium [Moles/Vol] 132 mmol/L 136-145 [facility] WBC (Bld) [#/Vol] 12.9 10*3/uL 4.4-11.0 [facility] Determination of erythrocyte mean corpuscular volume (MCV)Ordered By: Manisha Ford on 11-29-2023 MCV (RBC) [Entitic vol] 86.7 fL 80-94 [facility] Erythrocyte distribution wid th ratioOrdered By: [facility] Irajky on 11-29-2023 Erythrocyte distribution width (RBC) [Ratio] 15.6 % 11.6-14.6 [facility] Erythrocyte distribution wid th standard deviationOrdered By: [facility] Irajky on 11-29-2023 Erythrocyte distribution width (RBC) [Entitic vol] 48.9 fL 35.1-43.9 [facility] Hematocrit Auto (Bld) [Volum e fraction]Ordered By: [facility] Irajky on 11-29-2023 Hematocrit (Bld) [Volume fraction] 33.8 % 40-54 [facility] Immature granulocytes/100 WB C Auto (Bld)Ordered By: [facility] Irajky on 11-29-2023 Immature granulocytes/100 WBC (Bld) 0.400 % 0.0-0.9 [facility] Comment on above: IG% - Immature Granu locytes (promyelocytes, myelocytes and metamyelocytes) > 1% indicates that a LEFT SHIFT is Present. Laboratory - Chemistry and C hemistry - challengeOrdered By: griseldaquintonector Ford on 11-29-2023 Albumin/Globulin [Mass ratio] 0.7 {ratio} 0.9-2.4 [facility] ALP [Catalytic activity/Vol] 101 U/L 45-117 [facility] ALT [Catalytic activity/Vol] 21 U/L 16-61 [facility] CO2 [Moles/Vol] 28.0 mmol/L 21.0-32.0 [facility] Globulin (S) [Mass/Vol] 4.4 g/dL 2.2-4.2 [facility] Urea nitrogen/Creatinine [Mass ratio] 20.8 mg/mg 10-20 [facility] Laboratory - Hematology and Cell countsOrdered By: Manisha Ford on 11-29-2023 MCH (RBC) [Entitic mass] 27.7 pg 27.0-32.0 [facility] MCHC (RBC) [Mass/Vol] 32.0 g/dL 32-36 [facility] Nucleated RBC/100 WBC (Bld) [Ratio] 0 % 0-5 [facility] Platelet mean volume (Bld) [Entitic vol] 10.6 fL 6.2-12.0 [facility] Platelets (Bld) [#/Vol] 358 10*3/uL 150-450 [facility] No Panel InformationOrdered By: Manisha Ford on 11-29-2023 Estimated GFR (MDRD) Amer 130 mL/min >60 [facility] Comment on above: GFR Calc Estimated GFR (MDRD) Non-Af Amer 107 mL/min >60 [facility] Comment on above: Non- GFR Calc RBC Auto (Bld) [#/Vol]Ordere d By: Manisha Ford on 11-29-2023 RBC (Bld) [#/Vol] 3.90 10*6/uL 4.6-6.2 [facility] Serum or plasma calcium isael urement (mass/volume)Ordered By: Manisha Ford on 11-29-2023 Calcium [Mass/Vol] 9.2 mg/dL 8.5-10.1 [facility] Serum or plasma creatinine m easurement (mass/volume)Ordered By: Manisha Ford on 11-29-2023 Creatinine [Mass/Vol] 0.77 mg/dL 0.70-1.30 [facility] Comment on above: The validity of the calculated GFR & GFRAA in patients over 70 years has not been determined. Clinical correlation is essential. Serum or plasma urea nitroge n measurement (mass/volume)Ordered By: Manisha Ford on 11-29-2023 Urea nitrogen [Mass/Vol] 16 mg/dL 7-18 [facility] Thin prep Papanicolaou smear with manual screeningOrdered By: Manisha Ford on 11-29-2023 Thin prep Papanicolaou smear with manual screening 3.1 g/dL 3.2-5.0 [facility] Thin prep Papanicolaou smear with manual screening 18 U/L 15-37 [facility] Thin prep Papanicolaou smear with manual screening 5 5-15 [facility] CBC,PLATELETSon 11-28-2023 Erythrocyte distribution width (RBC) [Ratio] 15.6 % High 10.9 - 14.3 % [facility] Hematocrit (Bld) [Volume fraction] 30.8 % Low 39.6 - 48.8 % [facility] Hemoglobin (Bld) [Mass/Vol] 9.8 g/dL Low 13.4 - 16.8 g/dL [facility] Interpretation and review of laboratory results Abnormal [facility] MCH (RBC) [Entitic mass] 27.7 pg 26.1 - 33.3 pg [facility] MCHC (RBC) [Mass/Vol] 31.8 g/dL Low 31.9 - 36.5 g/dL [facility] MCV (RBC) [Entitic vol] 87.0 fL 79.0 - 94.5 fL [facility] Platelet mean volume (Bld) [Entitic vol] 10.1 fL 8.7 - 12.3 fL [facility] Platelets (Bld) [#/Vol] 293 10*3/uL 146 - 337 K/uL [facility] RBC (Bld) [#/Vol] 3.54 10*6/uL Low [facility] WBC (Bld) [#/Vol] 8.74 10*3/uL 3.73 - 10.10 K/uL [facility] Hematocrit (Bld) [Volume fraction] 30.8 % Low 39.6-48.8 [facility] Comment on above: Performed By: #### T YPEC #### [facility] (DEFAULT) [address] [place] [address] Hemoglobin (Bld) [Mass/Vol] 9.8 g/dL Low 13.4-16.8 [facility] Comment on above: Performed By: #### T YPEC #### [facility] (DEFAULT) [address] [address] MCV (RBC) [Entitic vol] 87.0 fL Normal 79.0-94.5 [facility] Comment on above: Performed By: #### T YPEC #### [facility] (DEFAULT) [address] [address] Mean Cell Hgb 27.7 pg Normal 26.1-33.3 [facility] Comment on above: Performed By: #### T YPEC #### [facility] (DEFAULT) [address] [address] Mean Cell Hgb Conc 31.8 g/dL Low 31.9-36.5 [facility] Comment on above: Performed By: #### T YPEC #### [facility] (DEFAULT) [address] [address] Platelet mean volume (Bld) [Entitic vol] 10.1 fL Normal 8.7-12.3 [facility] Comment on above: Performed By: #### T YPEC #### [facility] (DEFAULT) [address] [address] Platelets (Bld) [#/Vol] 293 10*3/uL Normal 146-337 [facility] Comment on above: Performed By: #### T YPEC #### [facility] (DEFAULT) [address] [address] RBC (Bld) [#/Vol] 3.54 10*6/uL Low 4.38-5.83 [facility] Comment on above: Performed By: #### T YPEC #### [facility] (DEFAULT) [address] [address] RBC Distribution 15.6 % High 10.9-14.3 [facility] Comment on above: Performed By: #### T YPEC #### [facility] (DEFAULT) [address] [place] [address] WBC (Bld) [#/Vol] 8.74 10*3/uL Normal 3.73-10.10 [facility] Comment on above: Performed By: #### T YPEC #### [facility] (DEFAULT) [address] [place] [id number] CHEM 7 (LYTES,BUN,CREA,GLUC) on 11-28-2023 Anion gap [Moles/Vol] 12 mmol/L 7 - 17 mmol/L [facility] Chloride [Moles/Vol] 102 mmol/L 98 - 10 8 mmol/L [facility] CO2 [Moles/Vol] 27 mmol/L 21 - 31 mmol/L [facility] Creatinine [Mass/Vol] 0.83 mg/dL 0.70 - 1.30 mg/dL [facility] eGFR, CKD-EPI, Male - PINF [facility] Glucose [Mass/Vol] 74 mg/dL 70 - 99 mg/dL [facility] Interpretation and review of laboratory results Abnormal [facility] Osmolality Calc [Osmolality] 287 [facility] Potassium [Moles/Vol] 3.4 mmol/L Low 3.5 - 5.0 mmol/L [facility] Sodium [Moles/Vol] 138 mmol/L 135 - 145 mmol/L [facility] Urea nitrogen [Mass/Vol] 16 mg/dL 7 - 25 mg/dL [facility] Urea nitrogen/Creatinine [Mass ratio] 19 mg/mg [facility] Anion gap [Moles/Vol] 12 mmol/L Normal 7-17 [facility] Comment on above: Performed By: #### P TT #### [facility] (DEFAULT) [address] [place] [address] Chloride [Moles/Vol] 102 mmol/L Normal 98-108 [facility] Comment on above: Performed By: #### P TT #### [facility] (DEFAULT) [address] [place] [address] CO2 [Moles/Vol] 27 mmol/L Normal 21-31 [facility] Comment on above: Performed By: #### P TT #### [facility] (DEFAULT) [address] [place] [address] Creatinine [Mass/Vol] 0.83 mg/dL Normal 0.70-1.30 [facility] Comment on above: Performed By: #### P TT #### [facility] (DEFAULT) [address] [place] [address] eGFR, CKD-EPI, Male > Normal >=60 [facility] Comment on above: Result Comment: Repo rted eGFR is based on the CKD-EPI 2020 equation using creatinine, age, and sex. Performed By: #### P TT #### [facility] (DEFAULT) [address] [place] [address] Glucose [Mass/Vol] 74 mg/dL Normal 70-99 [facility] Comment on above: Performed By: #### P TT #### [facility] (DEFAULT) [address] [place] [address] Osmolality [Osmolality] 287 mosm/kg Normal 278-305 [facility] Comment on above: Performed By: #### P TT #### [facility] (DEFAULT) [address] [place] [address] Potassium [Moles/Vol] 3.4 mmol/L Low 3.5-5.0 [facility] Comment on above: Performed By: #### P TT #### [facility] (DEFAULT) [address] [place] [address] Sodium [Moles/Vol] 138 mmol/L Normal 135-145 [facility] Comment on above: Performed By: #### P TT #### [facility] (DEFAULT) [address] [place] [address] Urea nitrogen [Mass/Vol] 16 mg/dL Normal 7-25 [facility] Comment on above: Performed By: #### P TT #### [facility] (DEFAULT) [address] [place] [address] Urea nitrogen/Creatinine [Mass ratio] 19 mg/mg Normal [facility] Comment on above: Performed By: #### P TT #### [facility] (DEFAULT) [address] [place] [address] CONTINUOUS CARDIAC MONITORIN G STRIPon 11-28-2023 [facility] Cardiac echo study Procedure on 11-28-2023 Body surface area Derived from formula 1.65 m2 [facility] BP EF 63 % [facility] EF SP 2CH 71 [facility] EF SP 4CH 54 [facility] FS 33 % 28 - 44 % [facility] IVS 0.95 cm [facility] LV EDV BP 94 mL [facility] LV EDV SP 2CH 100 mL [facility] BP 35 mL [facility] LV ESV SP 2CH 29 mL [facility] LV ESV SP 4CH 41 mL [facility] LV mass 160.00 g [facility] LV Mass Index 97.0 g[facility] RWT 0.43 [facility] LV stroke volume BP (ml) 59 mL [facility] LV stroke volume index BP 35.76 mL/m2 [facility] LVIDD 4.70 cm [facility] LVIDS 3.13 cm [facility] Mr max jesse 5.46 m/s [facility] MR VTI 185.92 cm [facility] ECHO LV BIPLANE SYSTOLIC VOLUME INDEX 21.21 mL/m2 [facility] ECHO LV BP DIASTOLIC VOLUME INDEX 56.97 mL/m2 [facility] ECHO MR PEAK GRADIENT 119.25 mmHg [facility] PW 1.01 cm [facility] UMOUT [facility] Radiology Study observation (narrative) [facility] ECHOCARDIOGRAMon 11-28-2023 Echocardiography Limited study to exclude cardioembolic etiology of recurrent CVA. The left ventricle is normal in size and global systolic function. Ejection fraction 63%. Diastolic function not assessed. With echo contrast enhancing agent, there is no evidence of a thrombus. The right ventricle appears grossly normal in size and systolic function. There is aortic cusps and leaflet thickening and calcification (mild). There is mild mitral valve regurgitation. No evidence of intracardiac shunt by color Doppler or agitated saline bubble study. Compared to prior echo on 11/18/2023, there is no significant change. Table formatting from the original result was not included. Images from the original result were not included. Facility [facility] Patient Information Patient Name Yony Vega Legal Sex Male Indication for Exam Priority: Routine Dx: Cerebrovascular accident (CVA), unspecified mechanism [I63.9 (ICD-10-CM)] Order Question Reason for Exam reccurence of CVA symptoms this admission. Now resolved. C/F new embolic etiology. Eval for intracardiac thrombus and valvular disease.. Interpretation Summary Limited study to exclude cardioembolic etiology of recurrent CVA. The left ventricle is normal in size and global systolic function. Ejection fraction 63%. Diastolic function not assessed. With echo contrast enhancing agent, there is no evidence of a thrombus. The right ventricle appears grossly normal in size and systolic function. There is aortic cusps and leaflet thickening and calcification (mild). There is mild mitral valve regurgitation. No evidence of intracardiac shunt by color Doppler or agitated saline bubble study. Compared to prior echo on 11/18/2023, there is no significant change. Findings Left Ventricle Chamber size is normal. Increased wall thickness. Concentric remodeling is present. Normal global systolic function. Regional wall motion is normal. The ejection fraction is 63%. Ejection fraction is normal (60 - 65%). Diastolic function not assessed. Right Ventricle Chamber size is normal. Systolic function is normal. Left Atrium Chamber size is normal. Right Atrium Chamber size is normal. Septum The atrial septum is normal. No evidence of patent foramen ovale determined by color flow and saline contrast. Mitral Valve Non-specific leaflet thickening. Leaflet mobility is normal. Mild annular calcification. Mild regurgitation. No valve stenosis. Aortic Valve Trileaflet valve. Leaflet calcification of all cusps. Cusp sclerosis visualized. Leaflet mobility is normal. No regurgitation. No stenosis. Tricuspid Valve Normal leaflets. Leaflet mobility is normal. Mild regurgitation. No stenosis. Pulmonic Valve Normal structure. Trace regurgitation. No stenosis. Aorta Aorta not assessed. Pericardium Appears normal. No pericardial effusion. IVC/SVC Inferior vena cava not assessed. Reading Providers Reading Role Read Date Sanjay Crandall MD Fellow - Reading 11/28/2023 Yousif Kolb DO Echo [place], Test [place] Machine Operator 11/28/2023 Wall Scoring Score Index: 1.00 The left ventricular wall motion is normal. Left Heart Measurements LV - Systole LVIDD 4.7 cm IVS 0.95 cm LVIDS 3.13 cm PW 1.01 cm LV RWT 0.43 LV Mass Index 97 g/m2 LV EDV BP 94 mL LV ESV BP 35 mL BP EF 63 % LV stroke volume BP (ml) 59 mL LV stroke volume index BP 35.76 mL/m2 Doppler Measurements - Mitral Valve PISA-MR Mr max jesse 5.46 m/s MR VTI 185.92 cm Vitals Height Weight BSA (Calculated - sq m) BP Pulse 1.676 m (5' 6) 58 kg (127 lb 13.9 oz) 1.65 m2 122/59 62 Performing Staff Shazia Reid RDCS Study Details A limited 2D echocardiography study (including color flow Doppler, limited spectral Doppler, agitated saline contrast and microbubbles) was performed. Contrast indication: evaluation of left ventricle apex. Imaging system used: Software [employer]. Indications Indications for study: other - c/f cardiac embolic source. Exam Details Performed Procedure Technologist Supporting Staff Performing Physician ECHOCARDIOGRAM LIMITED/FOLLOWUP W/O 3D W/CONTRAST Shazia Reid RDCS Appointment Date/Status Modality Department 11/28/2023 Arrived ECHO TESTING, [facility] ECHOCARDIOGRAPHY ROSS Begin Exam End Exam 11/28/2023 7:26 AM 11/28/2023 9:00 AM Signed at 1113 EDT External Results Report There is an external results report available. Patient Release Status: This result is viewable by the patient in MyChart. ECHOCARDIOGRAM: Patient Communication Released Not seen ABN Associated with this Order There is no ABN associated with this order. Normal [facility] GLUCOSE POCon 11-28-2023 Glucose [Mass/Vol] 174 mg/dL High 70 - 99 mg/dL [facility] Interpretation and review of laboratory results Abnormal [facility] POC Sample Type [facility] Glucose [Mass/Vol] 73 mg/dL 70 - 99 mg/dL [facility] POC Sample Type CAPBL [facility] IONIZED CALCIUM, WHOLE BLOOD Ordered By: Anna Marsh on 11-28-2023 Calcium.ionized (Bld) [Moles/Vol] 4.47 mg/dL Low 4.60 - 5.30 mg/dL [facility] Interpretation and review of laboratory results Abnormal [facility] IONIZED CALCIUM, WHOLE BLOOD on 11-28-2023 ICA 4.47 mg/dL Low 4.60-5.30 [facility] Comment on above: Performed By: #### U [id number] #### [facility] (DEFAULT) [address] [place] [address] MAGNESIUMon 11-28-2023 Interpretation and review of laboratory results Normal [facility] Magnesium [Mass/Vol] 1.7 mg/dL 1.6 - 2 .6 mg/dL [facility] Magnesium [Mass/Vol] 1.7 mg/dL Normal 1.6-2.6 [facility] Comment on above: Performed By: #### P TT #### [facility] (DEFAULT) [address] [place] [address] No Panel Informationon 11-27 [facility] CBC,PLATELETSon 11-27-2023 Erythrocyte distribution width (RBC) [Ratio] 15.7 % High 10.9 - 14.3 % [facility] Hematocrit (Bld) [Volume fraction] 30.1 % Low 39.6 - 48.8 % [facility] Hemoglobin (Bld) [Mass/Vol] 9.6 g/dL Low 13.4 - 16.8 g/dL [facility] Interpretation and review of laboratory results Abnormal [facility] MCH (RBC) [Entitic mass] 27.6 pg 26.1 - 33.3 pg [facility] MCHC (RBC) [Mass/Vol] 31.9 g/dL 31.9 - 36.5 g/dL [facility] MCV (RBC) [Entitic vol] 86.5 fL 79.0 - 94.5 fL [facility] Platelet mean volume (Bld) [Entitic vol] 10.6 fL 8.7 - 12.3 fL [facility] Platelets (Bld) [#/Vol] 326 10*3/uL 146 - 337 K/uL [facility] RBC (Bld) [#/Vol] 3.48 10*6/uL Low [facility] WBC (Bld) [#/Vol] 8.65 10*3/uL 3.73 - 10.10 K/uL [facility] Hematocrit (Bld) [Volume fraction] 30.1 % Low 39.6-48.8 [facility] Comment on above: Performed By: #### U [id number] #### [facility] (DEFAULT) [address] [address] Hemoglobin (Bld) [Mass/Vol] 9.6 g/dL Low 13.4-16.8 [facility] Comment on above: Performed By: #### U [id number] #### [facility] (DEFAULT) [address] [address] MCV (RBC) [Entitic vol] 86.5 fL Normal 79.0-94.5 O [facility] Comment on above: Result Comment: Resu lts inconsistent with previous results Performed By: #### U [id number] #### [facility] (DEFAULT) [address] [address] Mean Cell Hgb 27.6 pg Normal 26.1-33.3 [facility] Comment on above: Performed By: #### U [id number] #### [facility] (DEFAULT) [address] [address] Mean Cell Hgb Conc 31.9 g/dL Normal 31.9-36.5 [facility] Comment on above: Performed By: #### U [id number] #### [facility] (DEFAULT) [address] [address] Platelet mean volume (Bld) [Entitic vol] 10.6 fL Normal 8.7-12.3 [facility] Comment on above: Performed By: #### U [id number] #### [facility] (DEFAULT) [address] [address] Platelets (Bld) [#/Vol] 326 10*3/uL Normal 146-337 [facility] Comment on above: Performed By: #### U [id number] #### [facility] (DEFAULT) [address] [address] RBC (Bld) [#/Vol] 3.48 10*6/uL Low 4.38-5.83 [facility] Comment on above: Performed By: #### U [id number] #### [facility] (DEFAULT) [address] [address] RBC Distribution 15.7 % High 10.9-14.3 [facility] Comment on above: Performed By: #### U [id number] #### [facility] (DEFAULT) [address] [address] WBC (Bld) [#/Vol] 8.65 10*3/uL Normal 3.73-10.10 [facility] Comment on above: Performed By: #### U [id number] #### [facility] (DEFAULT) [address] [address] CHEM 7 (LYTES,BUN,CREA,GLUC) on 11-27-2023 Anion gap [Moles/Vol] 12 mmol/L 7 - 17 mmol/L [facility] Chloride [Moles/Vol] 101 mmol/L 98 - 10 8 mmol/L [facility] CO2 [Moles/Vol] 27 mmol/L 21 - 31 mmol/L [facility] Creatinine [Mass/Vol] 0.90 mg/dL 0.70 - 1.30 mg/dL [facility] eGFR, CKD-EPI, Male - PINF [facility] Glucose [Mass/Vol] 160 mg/dL High 70 - 99 mg/dL [facility] Interpretation and review of laboratory results Abnormal [facility] Osmolality Calc [Osmolality] 290 [facility] Potassium [Moles/Vol] 3.5 mmol/L 3.5 - 5.0 mmol/L [facility] Sodium [Moles/Vol] 136 mmol/L 135 - 145 mmol/L [facility] Urea nitrogen [Mass/Vol] 19 mg/dL 7 - 25 mg/dL [facility] Urea nitrogen/Creatinine [Mass ratio] 21 mg/mg [facility] Anion gap [Moles/Vol] 12 mmol/L Normal 7-17 [facility] Comment on above: Performed By: #### Bonifacio ARIAS CHM7 ####[facility] (DEFAULT)[address] [place] [address] Chloride [Moles/Vol] 101 mmol/L Normal 98-108 [facility] Comment on above: Performed By: #### Bonifacio ARIAS CHM7 ####[facility] (DEFAULT)[address] [place] [address] CO2 [Moles/Vol] 27 mmol/L Normal 21-31 [facility] Comment on above: Performed By: #### Bonifacio ARIAS CHM7 ####[facility] (DEFAULT)[address] [place] [address] Creatinine [Mass/Vol] 0.90 mg/dL Normal 0.70-1.30 [facility] Comment on above: Performed By: #### Bonifacio ARIAS CHM7 ####[facility] (DEFAULT)[address] [place] [address] eGFR, CKD-EPI, Male > Normal >=60 [facility] Comment on above: Result Comment: Repo rted eGFR is based on the CKD-EPI 2020 equation using creatinine, age, and sex. Performed By: #### YULISA GOULD7 ####[facility] (DEFAULT)[address] [place] [address] Glucose [Mass/Vol] 160 mg/dL High 70-99 [facility] Comment on above: Performed By: #### Bonifacio ARIAS CHM7 ####[facility] (DEFAULT)[address] [place] [address] Osmolality [Osmolality] 290 mosm/kg Normal 278-305 [facility] Comment on above: Performed By: #### Bonifacio ARIAS CHM7 ####[facility] (DEFAULT)[address] [place] [address] Potassium [Moles/Vol] 3.5 mmol/L Normal 3.5-5.0 [facility] Comment on above: Performed By: #### Bonifacio ARIAS CHM7 ####[facility] (DEFAULT)[address] [place] [address] Sodium [Moles/Vol] 136 mmol/L Normal 135-145 [facility] Comment on above: Performed By: #### Bonifacio ARIAS CHM7 ####[facility] (DEFAULT)[address] [place] [address] Urea nitrogen [Mass/Vol] 19 mg/dL Normal 7-25 [facility] Comment on above: Performed By: #### Bonifacio ARIAS CHM7 ####[facility] (DEFAULT)[address] [place] [address] Urea nitrogen/Creatinine [Mass ratio] 21 mg/mg Normal [facility] Comment on above: Performed By: #### YULISA GOULD7 ####[facility] (DEFAULT)[address] [place] [address] GLUCOSE POCon 11-27-2023 Glucose [Mass/Vol] 136 mg/dL High 70 - 99 mg/dL [facility] Interpretation and review of laboratory results Abnormal [facility] POC Sample Type [facility] Glucose [Mass/Vol] 114 mg/dL High 70 - 99 mg/dL [facility] Interpretation and review of laboratory results Abnormal [facility] POC Sample Type CAPBL [facility] Glucose [Mass/Vol] 113 mg/dL High 70 - 99 mg/dL [facility] Interpretation and review of laboratory results Abnormal [facility] POC Sample Type CAPBL [facility] Glucose [Mass/Vol] 113 mg/dL High 70 - 99 mg/dL [facility] Interpretation and review of laboratory results Abnormal [facility] POC Sample Type CAPBL [facility] IONIZED CALCIUM, WHOLE BLOOD on 11-27-2023 Calcium.ionized (Bld) [Moles/Vol] 4.52 mg/dL Low 4.60 - 5.30 mg/dL [facility] Interpretation and review of laboratory results Abnormal [facility] ICA 4.52 mg/dL Low 4.60-5.30 [facility] Comment on above: Performed By: #### YULISA GOULD7 #### [facility] (DEFAULT) [address] [place] [address] MAGNESIUMon 11-27-2023 Interpretation and review of laboratory results Normal [facility] Magnesium [Mass/Vol] 1.9 mg/dL 1.6 - 2 .6 mg/dL [facility] Magnesium [Mass/Vol] 1.9 mg/dL Normal 1.6-2.6 [facility] Comment on above: Performed By: #### M SANDRA CHM7 ####[facility] (DEFAULT)[address] [place] [address] No Panel Informationon 11-26 [facility] CBC,PLATELETSon 11-26-2023 Erythrocyte distribution width (RBC) [Ratio] 15.5 % High 10.9 - 14.3 % [facility] Hematocrit (Bld) [Volume fraction] 33.6 % Low 39.6 - 48.8 % [facility] Hemoglobin (Bld) [Mass/Vol] 10.2 g/dL Low 13.4 - 16.8 g/dL [facility] Interpretation and review of laboratory results Abnormal [facility] MCH (RBC) [Entitic mass] 27.9 pg 26.1 - 33.3 pg [facility] MCHC (RBC) [Mass/Vol] 30.4 g/dL Low 31.9 - 36.5 g/dL [facility] MCV (RBC) [Entitic vol] 92.1 fL 79.0 - 94.5 fL [facility] Platelet mean volume (Bld) [Entitic vol] 10.6 fL 8.7 - 12.3 fL [facility] Platelets (Bld) [#/Vol] 279 10*3/uL 146 - 337 K/uL [facility] RBC (Bld) [#/Vol] 3.65 10*6/uL Low [facility] WBC (Bld) [#/Vol] 8.25 10*3/uL 3.73 - 10.10 K/uL [facility] Hematocrit (Bld) [Volume fraction] 33.6 % Low 39.6-48.8 [facility] Comment on above: Performed By: #### L [email or web address] #### [facility] (DEFAULT) [address] [place] [address] Hemoglobin (Bld) [Mass/Vol] 10.2 g/dL Low 13.4-16.8 [facility] Comment on above: Performed By: #### L [email or web address] #### [facility] (DEFAULT) [address] [place] [address] MCV (RBC) [Entitic vol] 92.1 fL Normal 79.0-94.5 O [facility] Comment on above: Performed By: #### L [email or web address] #### [facility] (DEFAULT) [address] [place] [address] Mean Cell Hgb 27.9 pg Normal 26.1-33.3 [facility] Comment on above: Performed By: #### L [email or web address] #### [facility] (DEFAULT) [address] [place] [address] Mean Cell Hgb Conc 30.4 g/dL Low 31.9-36.5 [facility] Comment on above: Performed By: #### L [email or web address] #### [facility] (DEFAULT) [address] [place] [address] Platelet mean volume (Bld) [Entitic vol] 10.6 fL Normal 8.7-12.3 [facility] Comment on above: Performed By: #### L [email or web address] #### [facility] (DEFAULT) [address] [address] Platelets (Bld) [#/Vol] 279 10*3/uL Normal 146-337 [facility] Comment on above: Performed By: #### L [email or web address] #### [facility] (DEFAULT) [address] [place] [address] RBC (Bld) [#/Vol] 3.65 10*6/uL Low 4.38-5.83 [facility] Comment on above: Performed By: #### L [email or web address] #### [facility] (DEFAULT) [address] [place] [address] RBC Distribution 15.5 % High 10.9-14.3 [facility] Comment on above: Performed By: #### L [email or web address] #### [facility] (DEFAULT) [address] [place] [address] WBC (Bld) [#/Vol] 8.25 10*3/uL Normal 3.73-10.10 [facility] Comment on above: Performed By: #### L [email or web address] #### [facility] (DEFAULT) [address] [place] [address] CHEM 7 (LYTES,BUN,CREA,GLUC) on 11-26-2023 Anion gap [Moles/Vol] 16 mmol/L 7 - 17 mmol/L [facility] Chloride [Moles/Vol] 103 mmol/L 98 - 10 8 mmol/L [facility] CO2 [Moles/Vol] 22 mmol/L 21 - 31 mmol/L [facility] Creatinine [Mass/Vol] 0.87 mg/dL 0.70 - 1.30 mg/dL [facility] eGFR, CKD-EPI, Male - PINF [facility] Glucose [Mass/Vol] 159 mg/dL High 70 - 99 mg/dL [facility] Interpretation and review of laboratory results Abnormal [facility] Osmolality Calc [Osmolality] 294 [facility] Potassium [Moles/Vol] 4.1 mmol/L 3.5 - 5.0 mmol/L [facility] Sodium [Moles/Vol] 137 mmol/L 135 - 145 mmol/L [facility] Urea nitrogen [Mass/Vol] 20 mg/dL 7 - 25 mg/dL [facility] Urea nitrogen/Creatinine [Mass ratio] 23 mg/mg [facility] Anion gap [Moles/Vol] 16 mmol/L Normal 7-17 [facility] Comment on above: Performed By: #### T YPEC #### [facility] (DEFAULT) [address] [place] [address] Chloride [Moles/Vol] 103 mmol/L Normal 98-108 [facility] Comment on above: Performed By: #### T YPEC #### [facility] (DEFAULT) [address] [place] [address] CO2 [Moles/Vol] 22 mmol/L Normal 21-31 [facility] Comment on above: Performed By: #### T YPEC #### [facility] (DEFAULT) [address] [place] [address] Creatinine [Mass/Vol] 0.87 mg/dL Normal 0.70-1.30 [facility] Comment on above: Performed By: #### T YPEC #### [facility] (DEFAULT) [address] [place] [address] eGFR, CKD-EPI, Male > Normal >=60 [facility] Comment on above: Result Comment: Repo rted eGFR is based on the CKD-EPI 2020 equation using creatinine, age, and sex. Performed By: #### T YPEC #### [facility] (DEFAULT) [address] [place] [address] Glucose [Mass/Vol] 159 mg/dL High 70-99 [facility] Comment on above: Performed By: #### T YPEC #### [facility] (DEFAULT) [address] [place] [address] Osmolality [Osmolality] 294 mosm/kg Normal 278-305 [facility] Comment on above: Performed By: #### T YPEC #### [facility] (DEFAULT) [address] [place] [address] Potassium [Moles/Vol] 4.1 mmol/L Normal 3.5-5.0 [facility] Comment on above: Performed By: #### T YPEC #### [facility] (DEFAULT) [address] [place] [address] Sodium [Moles/Vol] 137 mmol/L Normal 135-145 [facility] Comment on above: Performed By: #### T YPEC #### [facility] (DEFAULT) [address] [place] [address] Urea nitrogen [Mass/Vol] 20 mg/dL Normal 7-25 [facility] Comment on above: Performed By: #### T YPEC #### [facility] (DEFAULT) [address] [place] [address] Urea nitrogen/Creatinine [Mass ratio] 23 mg/mg Normal [facility] Comment on above: Performed By: #### T YPEC #### [facility] (DEFAULT) [address] [place] [address] CONTINUOUS CARDIAC MONITORIN G STRIPon 11-26-2023 [facility] GLUCOSE POCon 11-26-2023 Glucose [Mass/Vol] 175 mg/dL High 70 - 99 mg/dL [facility] Interpretation and review of laboratory results Abnormal [facility] POC Sample Type CAPBL [facility] Glucose [Mass/Vol] 200 mg/dL High 70 - 99 mg/dL [facility] Interpretation and review of laboratory results Abnormal [facility] POC Sample Type CAPBL [facility] Glucose [Mass/Vol] 205 mg/dL High 70 - 99 mg/dL [facility] Interpretation and review of laboratory results Abnormal [facility] POC Sample Type CAPBL [facility] IONIZED CALCIUM, WHOLE BLOOD Ordered By: Salud Gomes on 11-26-2023 Calcium.ionized (Bld) [Moles/Vol] 4.35 mg/dL Low 4.60 - 5.30 mg/dL [facility] Interpretation and review of laboratory results Abnormal [facility] IONIZED CALCIUM, WHOLE BLOOD on 11-26-2023 ICA 4.35 mg/dL Low 4.60-5.30 [facility] Comment on above: Performed By: #### M SANDRA [facility]7 #### [facility] (DEFAULT) [address] [place] [address] MAGNESIUMon 11-26-2023 Interpretation and review of laboratory results Normal [facility] Magnesium [Mass/Vol] 1.7 mg/dL 1.6 - 2 .6 mg/dL [facility] Magnesium [Mass/Vol] 1.7 mg/dL Normal 1.6-2.6 [facility] Comment on above: Performed By: #### T YPEC #### [facility] (DEFAULT) [address] [place] [address] No Panel Informationon 11-25 [facility] CBC,PLATELETSon 11-25-2023 Erythrocyte distribution width (RBC) [Ratio] 15.3 % High 10.9 - 14.3 % [facility] Hematocrit (Bld) [Volume fraction] 31.2 % Low 39.6 - 48.8 % [facility] Hemoglobin (Bld) [Mass/Vol] 9.8 g/dL Low 13.4 - 16.8 g/dL [facility] Interpretation and review of laboratory results Abnormal [facility] MCH (RBC) [Entitic mass] 27.6 pg 26.1 - 33.3 pg [facility] MCHC (RBC) [Mass/Vol] 31.4 g/dL Low 31.9 - 36.5 g/dL [facility] MCV (RBC) [Entitic vol] 87.9 fL 79.0 - 94.5 fL [facility] Platelet mean volume (Bld) [Entitic vol] 10.9 fL 8.7 - 12.3 fL [facility] Platelets (Bld) [#/Vol] 285 10*3/uL 146 - 337 K/uL [facility] RBC (Bld) [#/Vol] 3.55 10*6/uL Low [facility] WBC (Bld) [#/Vol] 6.76 10*3/uL 3.73 - 10.10 K/uL [facility] Hematocrit (Bld) [Volume fraction] 31.2 % Low 39.6-48.8 [facility] Comment on above: Performed By: #### G ASVL #### U [facility] (DEFAULT) [address] [address] Hemoglobin (Bld) [Mass/Vol] 9.8 g/dL Low 13.4-16.8 [facility] Comment on above: Performed By: #### G ASVL #### [facility] (DEFAULT) [address] [address] MCV (RBC) [Entitic vol] 87.9 fL Normal 79.0-94.5 O [facility] Comment on above: Performed By: #### G ASVL #### [facility] (DEFAULT) [address] [address] Mean Cell Hgb 27.6 pg Normal 26.1-33.3 [facility] Comment on above: Performed By: #### G ASVL #### [facility] (DEFAULT) [address] [address] Mean Cell Hgb Conc 31.4 g/dL Low 31.9-36.5 [facility] Comment on above: Performed By: #### G ASVL #### [facility] (DEFAULT) [address] [address] Platelet mean volume (Bld) [Entitic vol] 10.9 fL Normal 8.7-12.3 [facility] Comment on above: Performed By: #### G ASVL #### [facility] (DEFAULT) [address] [address] Platelets (Bld) [#/Vol] 285 10*3/uL Normal 146-337 [facility] Comment on above: Performed By: #### G ASVL #### [facility] (DEFAULT) [address] [address] RBC (Bld) [#/Vol] 3.55 10*6/uL Low 4.38-5.83 [facility] Comment on above: Performed By: #### G ASVL #### [facility] (DEFAULT) [address] [place] [address] RBC Distribution 15.3 % High 10.9-14.3 [facility] Comment on above: Performed By: #### G ASVL #### [facility] (DEFAULT) [address] [place] [address] WBC (Bld) [#/Vol] 6.76 10*3/uL Normal 3.73-10.10 [facility] Comment on above: Performed By: #### G ASVL #### [facility] (DEFAULT) [address] [place] [address] CHEM 7 (LYTES,BUN,CREA,GLUC) on 11-25-2023 Anion gap [Moles/Vol] 16 mmol/L 7 - 17 mmol/L [facility] Chloride [Moles/Vol] 101 mmol/L 98 - 10 8 mmol/L [facility] CO2 [Moles/Vol] 24 mmol/L 21 - 31 mmol/L [facility] Creatinine [Mass/Vol] 0.91 mg/dL 0.70 - 1.30 mg/dL [facility] eGFR, CKD-EPI, Male - PINF [facility] Glucose [Mass/Vol] 224 mg/dL High 70 - 99 mg/dL [facility] Interpretation and review of laboratory results Abnormal [facility] Osmolality Calc [Osmolality] 298 [facility] Potassium [Moles/Vol] 4.1 mmol/L 3.5 - 5.0 mmol/L [facility] Sodium [Moles/Vol] 137 mmol/L 135 - 145 mmol/L [facility] Urea nitrogen [Mass/Vol] 20 mg/dL 7 - 25 mg/dL [facility] Urea nitrogen/Creatinine [Mass ratio] 22 mg/mg [facility] Anion gap [Moles/Vol] 16 mmol/L Normal 7-17 [facility] Comment on above: Performed By: #### X M #### [facility] (DEFAULT) [address] [place] [address] Chloride [Moles/Vol] 101 mmol/L Normal 98-108 [facility] Comment on above: Performed By: #### X M #### [facility] (DEFAULT) [address] [place] [address] CO2 [Moles/Vol] 24 mmol/L Normal 21-31 [facility] Comment on above: Performed By: #### X M #### [facility] (DEFAULT) [address] [place] [address] Creatinine [Mass/Vol] 0.91 mg/dL Normal 0.70-1.30 [facility] Comment on above: Performed By: #### X M #### [facility] (DEFAULT) [address] [place] [address] eGFR, CKD-EPI, Male > Normal >=60 [facility] Comment on above: Result Comment: Repo rted eGFR is based on the CKD-EPI 2020 equation using creatinine, age, and sex. Performed By: #### X M #### [facility] (DEFAULT) [address] [place] [address] Glucose [Mass/Vol] 224 mg/dL High 70-99 [facility] Comment on above: Performed By: #### X M #### [facility] (DEFAULT) [address] [place] [address] Osmolality [Osmolality] 298 mosm/kg Normal 278-305 [facility] Comment on above: Performed By: #### X M #### U [facility] (DEFAULT) [address] [place] [address] Potassium [Moles/Vol] 4.1 mmol/L Normal 3.5-5.0 [facility] Comment on above: Performed By: #### X M #### [facility] (DEFAULT) [address] [place] [address] Sodium [Moles/Vol] 137 mmol/L Normal 135-145 [facility] Comment on above: Performed By: #### X M #### [facility] (DEFAULT) [address] [place] [address] Urea nitrogen [Mass/Vol] 20 mg/dL Normal 7-25 [facility] Comment on above: Performed By: #### X M #### [facility] (DEFAULT) [address] [place] [address] Urea nitrogen/Creatinine [Mass ratio] 22 mg/mg Normal [facility] Comment on above: Performed By: #### X M #### [facility] (DEFAULT) [address] [place] [address] GLUCOSE POCon 11-25-2023 Glucose [Mass/Vol] 153 mg/dL High 70 - 99 mg/dL [facility] Interpretation and review of laboratory results Abnormal [facility] POC Sample Type CAPBL [facility] Glucose [Mass/Vol] 267 mg/dL High 70 - 99 mg/dL [facility] Interpretation and review of laboratory results Abnormal [facility] POC Sample Type CAPBL [facility] Glucose [Mass/Vol] 318 mg/dL High 70 - 99 mg/dL [facility] Interpretation and review of laboratory results Abnormal [facility] POC Sample Type CAPBL [facility] Glucose [Mass/Vol] 222 mg/dL High 70 - 99 mg/dL [facility] Interpretation and review of laboratory results Abnormal [facility] POC Sample Type [facility] Glucose [Mass/Vol] 218 mg/dL High 70 - 99 mg/dL [facility] Interpretation and review of laboratory results Abnormal [facility] POC Sample Type CAPBL [facility] Glucose [Mass/Vol] 225 mg/dL High 70 - 99 mg/dL [facility] Interpretation and review of laboratory results Abnormal [facility] POC Sample Type CAPBL [facility] IONIZED CALCIUM, WHOLE BLOOD Ordered By: Faisal Scott on 11-25-2023 Calcium.ionized (Bld) [Moles/Vol] 4.13 mg/dL Low 4.60 - 5.30 mg/dL [facility] Interpretation and review of laboratory results Abnormal [facility] IONIZED CALCIUM, WHOLE BLOOD on 11-25-2023 ICA 4.13 mg/dL Low 4.60-5.30 [facility] Comment on above: Performed By: #### X M #### [facility] (DEFAULT) [address] [place] [address] MAGNESIUMon 11-25-2023 Interpretation and review of laboratory results Normal [facility] Magnesium [Mass/Vol] 2.1 mg/dL 1.6 - 2 .6 mg/dL [facility] Magnesium [Mass/Vol] 2.1 mg/dL Normal 1.6-2.6 [facility] Comment on above: Performed By: #### X M #### [facility] (DEFAULT) [address] [address] CBC,PLATELETSon 11-24-2023 Erythrocyte distribution width (RBC) [Ratio] 15.1 % High 10.9 - 14.3 % [facility] Hematocrit (Bld) [Volume fraction] 29.0 % Low 39.6 - 48.8 % [facility] Hemoglobin (Bld) [Mass/Vol] 9.4 g/dL Low 13.4 - 16.8 g/dL [facility] Interpretation and review of laboratory results Abnormal [facility] MCH (RBC) [Entitic mass] 27.7 pg 26.1 - 33.3 pg [facility] MCHC (RBC) [Mass/Vol] 32.4 g/dL 31.9 - 36.5 g/dL [facility] MCV (RBC) [Entitic vol] 85.5 fL 79.0 - 94.5 fL [facility] Platelet mean volume (Bld) [Entitic vol] 10.6 fL 8.7 - 12.3 fL [facility] Platelets (Bld) [#/Vol] 267 10*3/uL 146 - 337 K/uL [facility] RBC (Bld) [#/Vol] 3.39 10*6/uL [facility] WBC (Bld) [#/Vol] 5.36 10*3/uL 3.73 - 10.10 K/uL [facility] Hematocrit (Bld) [Volume fraction] 29.0 % Low 39.6-48.8 [facility] Comment on above: Performed By: #### T YPEC #### [facility] (DEFAULT) [address] [address] Hemoglobin (Bld) [Mass/Vol] 9.4 g/dL Low 13.4-16.8 [facility] Comment on above: Performed By: #### T YPEC #### [facility] (DEFAULT) [address] [place] [address] MCV (RBC) [Entitic vol] 85.5 fL Normal 79.0-94.5 O [facility] Comment on above: Performed By: #### T YPEC #### [facility] (DEFAULT) [address] [place] [address] Mean Cell Hgb 27.7 pg Normal 26.1-33.3 [facility] Comment on above: Performed By: #### T YPEC #### [facility] (DEFAULT) [address] [place] [address] Mean Cell Hgb Conc 32.4 g/dL Normal 31.9-36.5 [facility] Comment on above: Performed By: #### T YPEC #### [facility] (DEFAULT) [address] [place] [address] Platelet mean volume (Bld) [Entitic vol] 10.6 fL Normal 8.7-12.3 [facility] Comment on above: Performed By: #### T YPEC #### [facility] (DEFAULT) [address] [place] [address] Platelets (Bld) [#/Vol] 267 10*3/uL Normal 146-337 [facility] Comment on above: Performed By: #### T YPEC #### [facility] (DEFAULT) [address] [place] [address] RBC (Bld) [#/Vol] 3.39 10*6/uL Low 4.38-5.83 [facility] Comment on above: Performed By: #### T YPEC #### [facility] (DEFAULT) [address] [place] [address] RBC Distribution 15.1 % High 10.9-14.3 [facility] Comment on above: Performed By: #### T YPEC #### [facility] (DEFAULT) [address] [place] [address] WBC (Bld) [#/Vol] 5.36 10*3/uL Normal 3.73-10.10 [facility] Comment on above: Performed By: #### T YPEC #### [facility] (DEFAULT) [address] [place] [address] CHEM 7 (LYTES,BUN,CREA,GLUC) on 11-24-2023 Anion gap [Moles/Vol] 14 mmol/L 7 - 17 mmol/L [facility] Chloride [Moles/Vol] 93 mmol/L Low 98 - 10 8 mmol/L [facility] CO2 [Moles/Vol] 32 mmol/L High 21 - 31 mmol/L [facility] Creatinine [Mass/Vol] 0.89 mg/dL 0.70 - 1.30 mg/dL [facility] eGFR, CKD-EPI, Male - PINF [facility] Glucose [Mass/Vol] 257 mg/dL High 70 - 99 mg/dL [facility] Interpretation and review of laboratory results Abnormal [facility] Osmolality Calc [Osmolality] 298 [facility] Potassium [Moles/Vol] 4.3 mmol/L 3.5 - 5.0 mmol/L [facility] Sodium [Moles/Vol] 135 mmol/L 135 - 145 mmol/L [facility] Urea nitrogen [Mass/Vol] 24 mg/dL 7 - 25 mg/dL [facility] Urea nitrogen/Creatinine [Mass ratio] 27 mg/mg [facility] Anion gap [Moles/Vol] 14 mmol/L Normal 7-17 [facility] Comment on above: Performed By: #### T YPEC #### [facility] (DEFAULT) [address] [address] Chloride [Moles/Vol] 93 mmol/L Low 98-108 [facility] Comment on above: Performed By: #### T YPEC #### [facility] (DEFAULT) [address] [place] [address] CO2 [Moles/Vol] 32 mmol/L High 21-31 [facility] Comment on above: Performed By: #### T YPEC #### [facility] (DEFAULT) [address] [place] [address] Creatinine [Mass/Vol] 0.89 mg/dL Normal 0.70-1.30 [facility] Comment on above: Performed By: #### T YPEC #### [facility] (DEFAULT) [address] [place] [address] eGFR, CKD-EPI, Male > Normal >=60 [facility] Comment on above: Result Comment: Repo rted eGFR is based on the CKD-EPI 2020 equation using creatinine, age, and sex. Performed By: #### T YPEC #### [facility] (DEFAULT) [address] [place] [address] Glucose [Mass/Vol] 257 mg/dL High 70-99 [facility] Comment on above: Performed By: #### T YPEC #### [facility] (DEFAULT) [address] [place] [address] Osmolality [Osmolality] 298 mosm/kg Normal 278-305 [facility] Comment on above: Performed By: #### T YPEC #### [facility] (DEFAULT) [address] [place] [address] Potassium [Moles/Vol] 4.3 mmol/L Normal 3.5-5.0 [facility] Comment on above: Performed By: #### T YPEC #### [facility] (DEFAULT) [address] [place] [address] Sodium [Moles/Vol] 135 mmol/L Normal 135-145 [facility] Comment on above: Performed By: #### T YPEC #### [facility] (DEFAULT) [address] [place] [address] Urea nitrogen [Mass/Vol] 24 mg/dL Normal 7-25 [facility] Comment on above: Performed By: #### T YPEC #### [facility] (DEFAULT) [address] [place] [address] Urea nitrogen/Creatinine [Mass ratio] 27 mg/mg Normal [facility] Comment on above: Performed By: #### T YPEC #### [facility] (DEFAULT) [address] [place] [address] CONTINUOUS CARDIAC MONITORIN G STRIPon 11-24-2023 [facility] GLUCOSE POCon 11-24-2023 Glucose [Mass/Vol] 260 mg/dL High 70 - 99 mg/dL [facility] Interpretation and review of laboratory results Abnormal [facility] POC [facility] Glucose [Mass/Vol] 292 mg/dL High 70 - 99 mg/dL [facility] Interpretation and review of laboratory results Abnormal [facility] POC Sample Type CAPBL [facility] Glucose [Mass/Vol] 212 mg/dL High 70 - 99 mg/dL [facility] Interpretation and review of laboratory results Abnormal [facility] POC Sample Type CAPBL [facility] IONIZED CALCIUM, WHOLE BLOOD on 11-24-2023 Calcium.ionized (Bld) [Moles/Vol] 4.41 mg/dL Low 4.60 - 5.30 mg/dL [facility] Interpretation and review of laboratory results Abnormal [facility] ICA 4.41 mg/dL Low 4.60-5.30 [facility] Comment on above: Performed By: #### T YPEC #### [facility] (DEFAULT) [address] [place] [address] MAGNESIUMon 11-24-2023 Interpretation and review of laboratory results Normal [facility] Magnesium [Mass/Vol] 1.9 mg/dL 1.6 - 2 .6 mg/dL [facility] Magnesium [Mass/Vol] 1.9 mg/dL Normal 1.6-2.6 [facility] Comment on above: Performed By: #### M , [facility]7 #### [facility] (DEFAULT) [address] [place] [address] No Panel Informationon 11-23 [facility] VENOUS BLOOD GASon 4 Base excess Calc (Bld) [Moles/Vol] 9.0 mmol/L High -3.0 - 3.0 mmol/L [facility] CO2 (Bld) [Partial pressure] 53 mm[Hg] High [facility] HCO3 (Bld) [Moles/Vol] 34 mmol/L High 22 - 29 mmol/L [facility] Interpretation and review of laboratory results Abnormal [facility] Oxygen (Bld) [Partial pressure] 53 mm[Hg] mm Hg [facility] Oxygen saturation in Blood 81 % High 70 - 80 % [facility] pH (Bld) 7.41 [pH] 7.32 - 7.43 [facility] Specimen source Nom (Unsp spec) Venous [facility] Base Excess 9.0 mmol/L High -3.0-3.0 [facility] Comment on above: Performed By: #### T YPEC #### [facility] (DEFAULT) [address] [place] [address] HCO3 (Bld) [Moles/Vol] 34 mmol/L High 22-29 [facility] Comment on above: Performed By: #### T YPEC #### [facility] (DEFAULT) [address] [place] [address] Oxygen saturation in Blood 81 % High 70-80 [facility] Comment on above: Performed By: #### T YPEC #### [facility] (DEFAULT) [address] [place] [address] pCO2, Venous 53 mm Hg High 36-52 [facility] Comment on above: Performed By: #### T YPEC #### [facility] (DEFAULT) [address] [place] [address] pH, Venous 7.41 Normal 7.32-7.43 [facility] Comment on above: Performed By: #### T YPEC #### [facility] (DEFAULT) [address] [place] [address] pO2, Venous 53 mm Hg Normal [facility] Comment on above: Result Comment: Veno us pO2 is not recommended for the evaluation of oxygen status, clinical correlation is recommended. Performed By: #### T YPEC #### [facility] (DEFAULT) [address] [place] [address] Specimen type Nom (Spec) Venous Normal [facility] Comment on above: Performed By: #### T YPEC #### [facility] (DEFAULT) [address] [place] [address] VENOUS BLOOD GAS PLUS LACTAT Surjit 11-24-2023 Base excess Calc (Bld) [Moles/Vol] 12.8 mmol/L High -3.0 - 3.0 mmol/L [facility] CO2 (Bld) [Partial pressure] 53 mm[Hg] High [facility] HCO3 (Bld) [Moles/Vol] 37 mmol/L High 22 - 29 mmol/L [facility] Interpretation and review of laboratory results Abnormal [facility] Lactate [Moles/Vol] 0.9 mmol/L 0.5 - 1. 6 mmol/L [facility] Oxygen (Bld) [Partial pressure] 57 mm[Hg] mm Hg [facility] Oxygen saturation in Blood 89 % High 70 - 80 % [facility] pH (Bld) 7.45 [pH] High 7.32 - 7.43 [facility] Specimen source Nom (Unsp spec) Venous [facility] Base Excess 12.8 mmol/L High -3.0-3.0 [facility] Comment on above: Performed By: #### G ASVL #### [facility] (DEFAULT) [address] [place] [address] HCO3 (Bld) [Moles/Vol] 37 mmol/L High 22-29 [facility] Comment on above: Performed By: #### G ASVL #### [facility] (DEFAULT) [address] [place] [address] Lactate, Whole Blood 0.9 mmol/L Normal 0.5-1.6 [facility] Comment on above: Performed By: #### G ASVL #### [facility] (DEFAULT) [address] [place] [address] Oxygen saturation in Blood 89 % High 70-80 [facility] Comment on above: Performed By: #### G ASVL #### [facility] (DEFAULT) [address] [place] [address] pCO2, Venous 53 mm Hg High 36-52 [facility] Comment on above: Performed By: #### G ASVL #### [facility] (DEFAULT) [address] [place] [address] pH, Venous 7.45 High 7.32-7.43 [facility] Comment on above: Performed By: #### G ASVL #### [facility] (DEFAULT) [address] [place] [address] pO2, Venous 57 mm Hg Normal [facility] Comment on above: Result Comment: Veno us pO2 is not recommended for the evaluation of oxygen status, clinical correlation is recommended. Performed By: #### G ASVL #### [facility] (DEFAULT) [address] [place] [address] Specimen type Nom (Spec) Venous Normal [facility] Comment on above: Performed By: #### G ASVL #### [facility] (DEFAULT) [address] [place] [address] CBC,PLATELETSon 11-23-2023 Erythrocyte distribution width (RBC) [Ratio] 15.0 % High 10.9 - 14.3 % [facility] Hematocrit (Bld) [Volume fraction] 28.3 % Low 39.6 - 48.8 % [facility] Hemoglobin (Bld) [Mass/Vol] 9.3 g/dL Low 13.4 - 16.8 g/dL [facility] Interpretation and review of laboratory results Abnormal [facility] MCH (RBC) [Entitic mass] 27.5 pg 26.1 - 33.3 pg [facility] MCHC (RBC) [Mass/Vol] 32.9 g/dL 31.9 - 36.5 g/dL [facility] MCV (RBC) [Entitic vol] 83.7 fL 79.0 - 94.5 fL [facility] Platelet mean volume (Bld) [Entitic vol] 10.8 fL 8.7 - 12.3 fL [facility] Platelets (Bld) [#/Vol] 229 10*3/uL 146 - 337 K/uL [facility] RBC (Bld) [#/Vol] 3.38 10*6/uL Low [facility] WBC (Bld) [#/Vol] 5.24 10*3/uL 3.73 - 10.10 K/uL [facility] Hematocrit (Bld) [Volume fraction] 28.3 % Low 39.6-48.8 [facility] Comment on above: Performed By: #### YULISA GOULD7 #### [facility] (DEFAULT) [address] [address] Hemoglobin (Bld) [Mass/Vol] 9.3 g/dL Low 13.4-16.8 [facility] Comment on above: Performed By: #### YULISA GOULD7 #### [facility] (DEFAULT) [address] [place] [address] MCV (RBC) [Entitic vol] 83.7 fL Normal 79.0-94.5 O [facility] Comment on above: Performed By: #### Bonifacio ARIAS CHM7 #### [facility] (DEFAULT) [address] [address] Mean Cell Hgb 27.5 pg Normal 26.1-33.3 [facility] Comment on above: Performed By: #### Bonifacio ARIAS CHM7 #### [facility] (DEFAULT) [address] [address] Mean Cell Hgb Conc 32.9 g/dL Normal 31.9-36.5 [facility] Comment on above: Performed By: #### Bonifacio ARIAS CHM7 #### [facility] (DEFAULT) [address] [address] Platelet mean volume (Bld) [Entitic vol] 10.8 fL Normal 8.7-12.3 [facility] Comment on above: Performed By: #### Bonifacio ARIAS CHM7 #### [facility] (DEFAULT) [address] [place] [address] Platelets (Bld) [#/Vol] 229 10*3/uL Normal 146-337 [facility] Comment on above: Performed By: #### Bonifacio ARIAS CHM7 #### [facility] (DEFAULT) [address] [place] [address] RBC (Bld) [#/Vol] 3.38 10*6/uL Low 4.38-5.83 [facility] Comment on above: Performed By: #### YULISA GOULD7 #### [facility] (DEFAULT) [address] [place] [address] RBC Distribution 15.0 % High 10.9-14.3 [facility] Comment on above: Performed By: #### YULISA GOULD7 #### [facility] (DEFAULT) [address] [place] [address] WBC (Bld) [#/Vol] 5.24 10*3/uL Normal 3.73-10.10 [facility] Comment on above: Performed By: #### BAILEY GOULD #### [facility] (DEFAULT) [address] [place] [address] CHEM 7 (LYTES,BUN,CREA,GLUC) on 11-23-2023 Anion gap [Moles/Vol] 13 mmol/L 7 - 17 mmol/L [facility] Chloride [Moles/Vol] 90 mmol/L Low 98 - 10 8 mmol/L [facility] CO2 [Moles/Vol] 37 mmol/L High 21 - 31 mmol/L [facility] Creatinine [Mass/Vol] 1.05 mg/dL 0.70 - 1.30 mg/dL [facility] eGFR, CKD-EPI, Male 78 - PINF [facility] Glucose [Mass/Vol] 164 mg/dL High 70 - 99 mg/dL [facility] Interpretation and review of laboratory results Abnormal [facility] Osmolality Calc [Osmolality] 294 [facility] Potassium [Moles/Vol] 3.4 mmol/L Low 3.5 - 5.0 mmol/L [facility] Sodium [Moles/Vol] 137 mmol/L 135 - 145 mmol/L [facility] Urea nitrogen [Mass/Vol] 24 mg/dL 7 - 25 mg/dL [facility] Urea nitrogen/Creatinine [Mass ratio] 23 mg/mg [facility] Anion gap [Moles/Vol] 13 mmol/L Normal 7-17 [facility] Comment on above: Performed By: #### T YPEC #### [facility] (DEFAULT) [address] [address] Chloride [Moles/Vol] 90 mmol/L Low 98-108 [facility] Comment on above: Performed By: #### T YPEC #### [facility] (DEFAULT) [address] [address] CO2 [Moles/Vol] 37 mmol/L High 21-31 [facility] Comment on above: Performed By: #### T YPEC #### [facility] (DEFAULT) [address] [address] Creatinine [Mass/Vol] 1.05 mg/dL Normal 0.70-1.30 [facility] Comment on above: Performed By: #### T YPEC #### [facility] (DEFAULT) [address] [address] GFR/1.73 sq M.predicted among non-blacks MDRD (S/P/Bld) [Vol rate/Area] 78 mL/min/{1.73_m2} Normal >=60 [facility] Comment on above: Result Comment: Repo rted eGFR is based on the CKD-EPI 2020 equation using creatinine, age, and sex. Performed By: #### T YPEC #### [facility] (DEFAULT) [address] [place] [address] Glucose [Mass/Vol] 164 mg/dL High 70-99 [facility] Comment on above: Performed By: #### T YPEC #### [facility] (DEFAULT) [address] [place] [address] Osmolality [Osmolality] 294 mosm/kg Normal 278-305 [facility] Comment on above: Performed By: #### T YPEC #### [facility] (DEFAULT) [address] [place] [address] Potassium [Moles/Vol] 3.4 mmol/L Low 3.5-5.0 [facility] Comment on above: Performed By: #### T YPEC #### [facility] (DEFAULT) [address] [place] [address] Sodium [Moles/Vol] 137 mmol/L Normal 135-145 [facility] Comment on above: Performed By: #### T YPEC #### [facility] (DEFAULT) [address] [place] [address] Urea nitrogen [Mass/Vol] 24 mg/dL Normal 7-25 [facility] Comment on above: Performed By: #### T YPEC #### [facility] (DEFAULT) [address] [place] [address] Urea nitrogen/Creatinine [Mass ratio] 23 mg/mg Normal [facility] Comment on above: Performed By: #### T YPEC #### [facility] (DEFAULT) [address] [place] [address] CONTINUOUS CARDIAC MONITORIN G STRIPon 11-23-2023 [facility] GLUCOSE POCon 11-23-2023 Glucose [Mass/Vol] 239 mg/dL High 70 - 99 mg/dL [facility] Interpretation and review of laboratory results Abnormal [facility] POC Sample Type CAPBL [facility] Glucose [Mass/Vol] 146 mg/dL High 70 - 99 mg/dL [facility] Interpretation and review of laboratory results Abnormal [facility] POC Sample Type [facility] Glucose [Mass/Vol] 164 mg/dL High 70 - 99 mg/dL [facility] Interpretation and review of laboratory results Abnormal [facility] POC Sample Type [facility] Glucose [Mass/Vol] 260 mg/dL High 70 - 99 mg/dL [facility] Interpretation and review of laboratory results Abnormal [facility] POC Sample Type [facility] Glucose [Mass/Vol] 195 mg/dL High 70 - 99 mg/dL [facility] Interpretation and review of laboratory results Abnormal [facility] POC Sample Type VENO [facility] IONIZED CALCIUM, WHOLE BLOOD on 11-23-2023 Calcium.ionized (Bld) [Moles/Vol] 4.31 mg/dL Low 4.60 - 5.30 mg/dL [facility] Interpretation and review of laboratory results Abnormal [facility] ICA 4.31 mg/dL Low 4.60-5.30 [facility] Comment on above: Performed By: #### X M #### [facility] (DEFAULT) [address] [place] [address] MAGNESIUMon 11-23-2023 Magnesium [Mass/Vol] 2.3 mg/dL 1.6 - 2 .6 mg/dL [facility] Magnesium [Mass/Vol] 2.3 mg/dL Normal 1.6-2.6 [facility] Comment on above: Order Comment: Medic ine Electrolyte Replacement Protocol: Recheck magnesium level eight (8) hours after each 4g Magnesium Sulfate dose if most recent magnesium level is less than 1.3 mg/dL. Draw with next day morning labs after replacements for previous magnesium levels between 1.3-1.9 mg/dL. Performed By: #### M GO, KKO ####[facility] (DEFAULT)[address] [place] [address] Interpretation and review of laboratory results Normal [facility] Magnesium [Mass/Vol] 1.8 mg/dL 1.6 - 2 .6 mg/dL [facility] Magnesium [Mass/Vol] 1.8 mg/dL Normal 1.6-2.6 [facility] Comment on above: Performed By: #### T YPEC #### [facility] (DEFAULT) [address] [place] [address] No Panel Informationon 11-22 Interpretation and review of laboratory results Normal [facility] POTASSIUMon 11-23-2023 Potassium [Moles/Vol] 3.9 mmol/L 3.5 - 5.0 mmol/L [facility] Potassium [Moles/Vol] 3.9 mmol/L Normal 3.5-5.0 [facility] Comment on above: Order Comment: Medic ine Electrolyte Replacement Protocol: Recheck eight hours after each 60 mEq dose of Potassium chloride if most recent Potassium is less than 3 mmol/L. Draw with next day morning labs after 40 mEq dose of Potassium chloride. Performed By: #### M LAVERN ARIAS ####[facility] (DEFAULT)[address] [place] [address] Portable XR Chest Viewson RADIOLOGY RADIOLOGY [facility] Radiology Study observation (narrative) [facility] VENOUS BLOOD GASon Base excess Calc (Bld) [Moles/Vol] 14.6 mmol/L High -3.0 - 3.0 mmol/L [facility] CO2 (Bld) [Partial pressure] 54 mm[Hg] High [facility] HCO3 (Bld) [Moles/Vol] 38 mmol/L High 22 - 29 mmol/L [facility] Interpretation and review of laboratory results Abnormal [facility] Oxygen (Bld) [Partial pressure] [facility] Oxygen saturation in Blood 77 % 70 - 80 % [facility] pH (Bld) 7.46 [pH] High 7.32 - 7.43 [facility] Specimen source Nom (Unsp spec) Venous [facility] Base Excess 14.6 mmol/L High -3.0-3.0 [facility] Comment on above: Performed By: #### T YPEC #### [facility] (DEFAULT) [address] [place] [address] HCO3 (Bld) [Moles/Vol] 38 mmol/L High 22-29 [facility] Comment on above: Performed By: #### T YPEC #### [facility] (DEFAULT) [address] [address] Oxygen saturation in Blood 77 % Normal 70-80 [facility] Comment on above: Performed By: #### T YPEC #### [facility] (DEFAULT) [address] [address] pCO2, Venous 54 mm Hg High 36-52 [facility] Comment on above: Performed By: #### T YPEC #### [facility] (DEFAULT) [address] [place] [address] pH, Venous 7.46 High 7.32-7.43 [facility] Comment on above: Performed By: #### T YPEC #### [facility] (DEFAULT) [address] [place] [address] pO2, Venous Normal [facility] Comment on above: Result Comment: This calculated result is unavailable due to one or more measured constituents exceeding the measuring range limits Venous pO2 is not recommended for the evaluation of oxygen status, clinical correlation is recommended. Performed By: #### T YPEC #### [facility] (DEFAULT) [address] [place] [address] Specimen type Nom (Spec) Venous Normal [facility] Comment on above: Performed By: #### T YPEC #### [facility] (DEFAULT) [address] [place], [place] [address] XR CHEST 1 VIEW PORTABLEon 0 11-23-2023 XR CHEST 1 VIEW PORTABLE EXAM: XR CHEST 1 VIEW PORTABLE, 11/23/2023 06:28 AM COMPARISON: November 22, 2023 CLINICAL INDICATIONS: postop RELEVANT CLINICAL HISTORY: FINDINGS: (Adequate technique) Implanted Devices: None Thorax: Patchy density at the left base, predominantly linear, likely atelectasis and/or scarring. Lungs otherwise clear. IMPRESSION: No acute abnormality. I suspect there is some atelectasis or scarring at the left lateral base. Normal [facility] CBC,PLATELETSon 11-22-2023 Erythrocyte distribution width (RBC) [Ratio] 15.7 % High 10.9 - 14.3 % [facility] Hematocrit (Bld) [Volume fraction] 29.7 % Low 39.6 - 48.8 % [facility] Hemoglobin (Bld) [Mass/Vol] 9.4 g/dL Low 13.4 - 16.8 g/dL [facility] Interpretation and review of laboratory results Abnormal [facility] MCH (RBC) [Entitic mass] 26.9 pg 26.1 - 33.3 pg [facility] MCHC (RBC) [Mass/Vol] 31.6 g/dL Low 31.9 - 36.5 g/dL [facility] MCV (RBC) [Entitic vol] 84.9 fL 79.0 - 94.5 fL [facility] Platelet mean volume (Bld) [Entitic vol] 10.7 fL 8.7 - 12.3 fL [facility] Platelets (Bld) [#/Vol] 221 10*3/uL 146 - 337 K/uL [facility] RBC (Bld) [#/Vol] 3.50 10*6/uL Low [facility] WBC (Bld) [#/Vol] 5.22 10*3/uL 3.73 - 10.10 K/uL [facility] Hematocrit (Bld) [Volume fraction] 29.7 % Low 39.6-48.8 [facility] Comment on above: Performed By: #### X M #### [facility] (DEFAULT) [address] [place] [address] Hemoglobin (Bld) [Mass/Vol] 9.4 g/dL Low 13.4-16.8 [facility] Comment on above: Performed By: #### X M #### [facility] (DEFAULT) [address] [place] [address] MCV (RBC) [Entitic vol] 84.9 fL Normal 79.0-94.5 O [facility] Comment on above: Performed By: #### X M #### [facility] (DEFAULT) [address] [place] [address] Mean Cell Hgb 26.9 pg Normal 26.1-33.3 [facility] Comment on above: Performed By: #### X M #### [facility] (DEFAULT) [address] [place] [address] Mean Cell Hgb Conc 31.6 g/dL Low 31.9-36.5 [facility] Comment on above: Performed By: #### X M #### [facility] (DEFAULT) [address] [place] [address] Platelet mean volume (Bld) [Entitic vol] 10.7 fL Normal 8.7-12.3 [facility] Comment on above: Performed By: #### X M #### [facility] (DEFAULT) [address] [place] [address] Platelets (Bld) [#/Vol] 221 10*3/uL Normal 146-337 [facility] Comment on above: Performed By: #### X M #### [facility] (DEFAULT) [address] [place] [address] RBC (Bld) [#/Vol] 3.50 10*6/uL Low 4.38-5.83 [facility] Comment on above: Performed By: #### X M #### [facility] (DEFAULT) [address] [place] [address] RBC Distribution 15.7 % High 10.9-14.3 [facility] Comment on above: Performed By: #### X M #### [facility] (DEFAULT) [address] [place] [address] WBC (Bld) [#/Vol] 5.22 10*3/uL Normal 3.73-10.10 [facility] Comment on above: Performed By: #### X M #### [facility] (DEFAULT) [address] [place] [address] CHEM 7 (LYTES,BUN,CREA,GLUC) on 11-22-2023 Anion gap [Moles/Vol] 13 mmol/L 7 - 17 mmol/L [facility] Chloride [Moles/Vol] 92 mmol/L Low 98 - 10 8 mmol/L [facility] CO2 [Moles/Vol] 35 mmol/L High 21 - 31 mmol/L [facility] Creatinine [Mass/Vol] 0.90 mg/dL 0.70 - 1.30 mg/dL [facility] eGFR, CKD-EPI, Male - PINF [facility] Glucose [Mass/Vol] 168 mg/dL High 70 - 99 mg/dL [facility] Interpretation and review of laboratory results Abnormal [facility] Osmolality Calc [Osmolality] 295 [facility] Potassium [Moles/Vol] 3.8 mmol/L 3.5 - 5.0 mmol/L [facility] Sodium [Moles/Vol] 136 mmol/L 135 - 145 mmol/L [facility] Urea nitrogen [Mass/Vol] 28 mg/dL High 7 - 25 mg/dL [facility] Urea nitrogen/Creatinine [Mass ratio] 31 mg/mg [facility] Anion gap [Moles/Vol] 13 mmol/L Normal 7-17 [facility] Comment on above: Performed By: #### L ABHSTI1 #### [facility] (DEFAULT) [address] [place] [address] Chloride [Moles/Vol] 92 mmol/L Low 98-108 [facility] Comment on above: Performed By: #### L ABHSTI1 #### [facility] (DEFAULT) [address] [place] [address] CO2 [Moles/Vol] 35 mmol/L High 21-31 [facility] Comment on above: Performed By: #### L ABHSTI1 #### [facility] (DEFAULT) [address] [place] [address] Creatinine [Mass/Vol] 0.90 mg/dL Normal 0.70-1.30 [facility] Comment on above: Performed By: #### L ABHSTI1 #### [facility] (DEFAULT) [address] [place] [address] eGFR, CKD-EPI, Male > Normal >=60 [facility] Comment on above: Result Comment: Repo rted eGFR is based on the CKD-EPI 2020 equation using creatinine, age, and sex. Performed By: #### L ABHARISHTI1 #### [facility] (DEFAULT) [address] [place] [address] Glucose [Mass/Vol] 168 mg/dL High 70-99 [facility] Comment on above: Performed By: #### L ABHSTI1 #### [facility] (DEFAULT) [address] [place] [address] Osmolality [Osmolality] 295 mosm/kg Normal 278-305 [facility] Comment on above: Performed By: #### L ABHSTI1 #### [facility] (DEFAULT) [address] [place] [address] Potassium [Moles/Vol] 3.8 mmol/L Normal 3.5-5.0 [facility] Comment on above: Performed By: #### L ABHSTI1 #### [facility] (DEFAULT) [address] [place] [address] Sodium [Moles/Vol] 136 mmol/L Normal 135-145 [facility] Comment on above: Performed By: #### L ABHSTI1 #### [facility] (DEFAULT) [address] [place] [address] Urea nitrogen [Mass/Vol] 28 mg/dL High 7-25 [facility] Comment on above: Performed By: #### L ABHSTI1 #### [facility] (DEFAULT) [address] [place] [address] Urea nitrogen/Creatinine [Mass ratio] 31 mg/mg Normal [facility] Comment on above: Performed By: #### L ABHSTI1 #### [facility] (DEFAULT) [address] [place] [address] CONTINUOUS CARDIAC MONITORIN G STRIPon 11-22-2023 [facility] CT ANGIO ABDOMEN PELVISon CT ANGIO ABDOMEN PELVIS EXAM: CT ANGIO A BDOMEN PELVIS, 11/21/2023 11:26 AM CLINICAL INDICATIONS: Aneurysm, pelvis or lower extremity; eval of access site; CONTRAST: iohexol (OMNIPAQUE) 350 MG/ML injection 1-171 mL; Route of Administration: Intravenous; Dose: 70 mL. COMPARISON: Compared to prior study dated 06/15/2023. TECHNIQUE: Submillimeter contiguous axial sections were taken from the intertronchanteric level to the lower thorax during the arterial and venous phases of intravenous injection of contrast. Oral contrast was not used so as to optimize the visualization of the vasculature. Additional multiplanar and 3D reconstructions were provided. Multiplanar and three-dimensional, including Maximum Intensity Projection (MIP) reconstructions, were created by the technologist with concurrent physician supervision. Three-dimensional reconstructions were also created and reviewed by the radiologist on a separate workstation. Dose optimization was performed using a combination of automated exposure control, iterative reconstruction, and/or adjustment of KV or mA. FINDINGS: VASCULAR The abdominal aorta is patent and demonstrates severe multifocal atheromatous disease. The visualized iliofemoral arteries also demonstrate severe multifocal atheromatous disease with internal iliac occlusions and near complete occlusions of the distal common femoral arteries. Severe disease/occlusion of the proximal celiac trunk and SMA with distal reconstitution via collateral flow. The MORIAH also appears occluded. Severe atheromatous disease of the proximal bilateral renal arteries which are otherwise patent. The portal venous system is patent. The IVC and visualized iliofemoral veins are patent. No pseudoaneurysm formation or evidence for active hemorrhage. OTHER Moderate right and small left pleural effusions with adjacent atelectasis. Coronary artery calcific atherosclerosis. The liver is unremarkable. Splenic elements calcifications. The adrenal gland and pancreas are unremarkable. Cholelithiasis, without evidence for acute cholecystitis. Renovascular calcifications and excreted contrast limits evaluation for nephrolithiasis. No hydronephrosis. The bowel loops are nonobstructed. There is a left lower quadrant colostomy. The bladder is distended with urine and excreted contrast. Status post median sternotomy. Degenerative changes of the osseous structures. Body wall edema. Left internal postsurgical changes, likely from prior inguinal hernia repair. IMPRESSION: 1. Patent abdominal aorta with severe multifocal atheromatous disease. 2. Severe multifocal atheromatous disease of the visualized iliofemoral arteries with internal iliac occlusions and near complete occlusions of the distal common femoral arteries. No pseudoaneurysm formation or evidence for active hemorrhage. 3. Soft tissue and ancillary findings as described above. Normal [facility] CT Abdomen and Pelvis and CT angiogram Abdominal aorta WO and W contrast Messi 11-22-2023 RADIOLOGY RADI[address] [facility] CT Abdomen and Pelvis and CT angiogram Abdominal aorta WO and W contrast IVOrdered By: Karla Aldana on 11-22-2023 [facility] Work Phone: Cardiac catheterization stud yOrdered By: Abelardo Santiago on 11-22-2023 Body surface area Derived from formula 1.73 m2 [facility] Work Phone: [facility] Work Phone: Cardiac catheterization stud yon 11-22-2023 [facility] GLUCOSE POCon 11-22-2023 Glucose [Mass/Vol] 170 mg/dL High 70 - 99 mg/dL [facility] Interpretation and review of laboratory results Abnormal [facility] POC Sample Type CAPBL [facility] Glucose [Mass/Vol] 152 mg/dL High 70 - 99 mg/dL [facility] Interpretation and review of laboratory results Abnormal [facility] POC Sample Type CAPBL [facility] Glucose [Mass/Vol] 174 mg/dL High 70 - 99 mg/dL [facility] Interpretation and review of laboratory results Abnormal [facility] POC Sample Type CAPBL [facility] Glucose [Mass/Vol] 234 mg/dL High 70 - 99 mg/dL [facility] Interpretation and review of laboratory results Abnormal [facility] POC Sample Type [facility] INVASIVE CARDIOVASCULAR PROC [facility] 11-22-2023 INVASIVE CARDIOVASCULAR PROCEDURE 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 Further recommendations per cardiology consult team -- Access: Right femoral artery. Vessel is significantly calcified Coronary angiography: severe ambler 3v disease The left main is 100% occluded. Sequenced LAD/diagonal fills from ZUNIGA. Lcx fills retrograde (faintly) from graft to the OM RCA is 100% occluded proximally Right dominant coronary arterial circulation. Bypass angiography 4/5 patent grafts Vein graft to the OM has a 40% lesion mid graft with a hazy 80% lesion at the anastomosis, however there is RAMAN III flow and the target vessel is small and medical management is recommended. Vein graft to the rPDA is patent Patent ZUNIGA to LAD, appears the ZUNIGA may also be anastomosed to a diagonal Left heart catheterization: The LVEDP is significantly elevated at 40 mmHg. There is no gradient on LV-Ao pullback. Table formatting from the original result was not included. Images from the original result were not included. Yony Eduardo Silvia Invasive Cardiology Cath Procedure Ordering Physician: DONNA BAILEY Order #: [id number] Study Date: 11/20/2023 Patient Information Name MRN Description Yony Vega [id number] 68 y.o. male Location Name Address [facility] [address] [facility] [address] Physicians Panel Physicians Referring Physician Case Authorizing Physician Abelardo Santiago Jr., MD (Primary) DO Donna Holt APRN-CLOUD DEVELOPER Karla Gonzalez MD (Fellow) Vonda Griggs MD, MBBS (Fellow) Procedures CORONARY BYPASS GRAFT ANGIOGRAM ULTRASOUND GUIDED ACCESS CORONARY ANGIOGRAM WITH LEFT HEART CATH Indications NSTEMI (non-ST elevated myocardial infarction) [I21.4 (ICD-10-CM)] Conclusion 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 Further recommendations per cardiology consult team -- Access: Right femoral artery. Vessel is significantly calcified Coronary angiography: severe ambler 3v disease The left main is 100% occluded. Sequenced LAD/diagonal fills from ZUNIGA. Lcx fills retrograde (faintly) from graft to the OM RCA is 100% occluded proximally Right dominant coronary arterial circulation. Bypass angiography 4/5 patent grafts Vein graft to the OM has a 40% lesion mid graft with a hazy 80% lesion at the anastomosis, however there is RAMAN III flow and the target vessel is small and medical management is recommended. Vein graft to the rPDA is patent Patent ZUNIGA to LAD, appears the ZUNIGA may also be anastomosed to a diagonal Left heart catheterization: The LVEDP is significantly elevated at 40 mmHg. There is no gradient on LV-Ao pullback. Medical History Diagnosis Date Comment Source Anxiety Arteriosclerosis of carotid artery CAD (coronary artery disease) Colostomy in place CVA (cerebral vascular accident) 2011 Diabetes mellitus GERD (gastroesophageal reflux disease) HLD (hyperlipidemia) HTN (hypertension) NSTEMI (non-ST elevated myocardial infarction) ALEJANDRO (obstructive sleep apnea) Osteoporosis Parastomal hernia Rectal cancer Procedure The risks and alternatives of the procedure and sedation were explained. Informed consent was obtained. The patient was brought to the car barn laborer and placed on the table. The planned puncture sites were prepped and draped in the usual sterile fashion. Coronary Findings Diagnostic Dominance: Right Left Main Ost LM lesion is 100% stenosed. Right Coronary Artery The vessel was visualized by angiography. Prox RCA lesion is 100% stenosed. ZUNIGA Graft To Mid LAD The graft was visualized by angiography. The graft is angiographically normal. Graft To 2nd Mrg There is moderate diffuse disease throughout the graft. Mid Graft lesion is 40% stenosed. Insertion lesion is 80% stenosed. Graft To RPDA The graft exhibits minimal luminal irregularities. Intervention No interventions have been documented. Fluoro Dose Fluoro Dose: 49 Gy-cm^2 Cardiac Make Up Artist Attending Physician Statement and Signature I have personally performed and/or personally supervised and was present for this entire procedure, including the review and interpretation of all images and physiologic tracings acquired during the course of this study. Signed Electronically si (more content not included)... Normal [facility] IONIZED CALCIUM, WHOLE BLOOD on 11-22-2023 Calcium.ionized (Bld) [Moles/Vol] 4.36 mg/dL Low 4.60 - 5.30 mg/dL [facility] Interpretation and review of laboratory results Abnormal [facility] mg/dL Low 4.60-5.30 [facility] Comment on above: Performed By: #### T YPEC #### [facility] (DEFAULT) [address] [place], [place] [id number] MAGNESIUMon 11-22-2023 Interpretation and review of laboratory results Normal [facility] Magnesium [Mass/Vol] 1.8 mg/dL 1.6 - 2 .6 mg/dL [facility] Magnesium [Mass/Vol] 1.8 mg/dL Normal 1.6-2.6 [facility] Comment on above: Performed By: #### X M #### [facility] (DEFAULT) [address] [place] [address] No Panel Informationon 11-21 [facility] Portable XR Chest Viewson RADIOLOGY RADIOLOGY [facility] Radiology Study observation (narrative) [facility] Portable XR Chest ViewsOrder ed By: Miguel Angel Peña on 11-22-2023 [facility] [facility] Work Phone: XR CHEST 1 VIEW PORTABLEon 0 11-22-2023 XR CHEST 1 VIEW PORTABLE EXAM: XR CHEST 1 VIEW PORTABLE, 11/22/2023 06:05 AM COMPARISON: November 21, 2023 CLINICAL INDICATIONS: follow-up, pulmonary edema RELEVANT CLINICAL HISTORY: FINDINGS: (Adequate technique) Implanted Devices: None Thorax: Status post sternotomy. No consolidation. There is a pulmonary edema pattern which is fairly stable. Heart size unchanged. IMPRESSION: Pulmonary edema, unchanged. Postop changes. Normal [facility] ARTERIAL BLOOD GAS PLUS LACT ATEon 11-21-2023 Base excess Calc (Bld) [Moles/Vol] 9.8 mmol/L High -3.0 - 3.0 mmol/L [facility] CO2 (Bld) [Partial pressure] 50 mm[Hg] High [facility] HCO3 (Bld) [Moles/Vol] 34 mmol/L High 22 - 28 mmol/L [facility] Inhaled oxygen concentration 70 % [facility] Interpretation and review of laboratory results Abnormal [facility] Lactate [Moles/Vol] 1.6 mmol/L 0.5 - 1. 6 mmol/L [facility] Oxygen (Bld) [Partial pressure] 62 mm[Hg] Low [facility] Oxygen saturation in Blood 92 % Low 94 - 98 % [facility] PF Ratio 89 [facility] pH (Bld) 7.44 [pH] 7.35 - 7.45 [facility] Specimen source Nom (Unsp spec) Arterial [facility] Base Excess 9.8 mmol/L High -3.0-3.0 [facility] Comment on above: Performed By: #### T YPEC #### [facility] (DEFAULT) [address] [place] [address] 32483 FIO2 70 % Normal [facility] Comment on above: Performed By: #### T YPEC #### [facility] (DEFAULT) [address] [place] [address] 93442 HCO3 (Bld) [Moles/Vol] 34 mmol/L High 22-28 [facility] Comment on above: Performed By: #### T YPEC #### [facility] (DEFAULT) [address] [place] [address] 27427 Lactate, Whole Blood 1.6 mmol/L Normal 0.5-1.6 [facility] Comment on above: Performed By: #### T YPEC #### [facility] (DEFAULT) [address] [place] [address] 84081 Oxygen saturation in Blood 92 % Low 94-98 [facility] Comment on above: Performed By: #### T YPEC #### [facility] (DEFAULT) [address] [place] [address] 80639 pCO2 50 mm Hg High 32-48 [facility] Comment on above: Performed By: #### T YPEC #### [facility] (DEFAULT) [address] [place] [address] 17577 PF Ratio 89 Normal [facility] Comment on above: Performed By: #### T YPEC #### [facility] (DEFAULT) [address] [place] [address] 84938 pH, Arterial 7.44 Normal 7.35-7.45 [facility] Comment on above: Performed By: #### T YPEC #### [facility] (DEFAULT) [address] [place] [address] 64218 pO2 62 mm Hg Low 83-108 [facility] Comment on above: Performed By: #### T YPEC #### [facility] (DEFAULT) [address] [place] [address] 34347 Specimen type Nom (Spec) Arterial Normal [facility] Comment on above: Performed By: #### T YPEC #### [facility] (DEFAULT) [address] [place] [address] 16508 CALCIUMon 11-21-2023 Calcium [Mass/Vol] 8.8 mg/dL 8.6 - 10. 5 mg/dL [facility] Calcium [Mass/Vol] 8.8 mg/dL Normal 8.6-10.5 [facility] Comment on above: Performed By: #### G ASVL #### [facility] (DEFAULT) [address] [place] [address] 30047 CBC,PLATELETSon 11-21-2023 Erythrocyte distribution width (RBC) [Ratio] 16.0 % High 10.9 - 14.3 % [facility] Hematocrit (Bld) [Volume fraction] 29.8 % Low 39.6 - 48.8 % [facility] Hemoglobin (Bld) [Mass/Vol] 9.4 g/dL Low 13.4 - 16.8 g/dL [facility] Interpretation and review of laboratory results Abnormal [facility] MCH (RBC) [Entitic mass] 27.6 pg 26.1 - 33.3 pg [facility] MCHC (RBC) [Mass/Vol] 31.5 g/dL Low 31.9 - 36.5 g/dL [facility] MCV (RBC) [Entitic vol] 87.4 fL 79.0 - 94.5 fL [facility] Platelet mean volume (Bld) [Entitic vol] 11.2 fL 8.7 - 12.3 fL [facility] Platelets (Bld) [#/Vol] 236 10*3/uL 146 - 337 K/uL [facility] RBC (Bld) [#/Vol] 3.41 10*6/uL Low [facility] WBC (Bld) [#/Vol] 7.39 10*3/uL 3.73 - 10.10 K/uL [facility] Hematocrit (Bld) [Volume fraction] 29.8 % Low 39.6-48.8 [facility] Comment on above: Performed By: #### BAILEY GOULD #### [facility] (DEFAULT) [address] [address] Hemoglobin (Bld) [Mass/Vol] 9.4 g/dL Low 13.4-16.8 [facility] Comment on above: Performed By: #### BAILEY GOULD #### [facility] (DEFAULT) [address] [address] MCV (RBC) [Entitic vol] 87.4 fL Normal 79.0-94.5 O [facility] Comment on above: Performed By: #### YULISA GOULD7 #### [facility] (DEFAULT) [address] [place] [address] 39732 Mean Cell Hgb 27.6 pg Normal 26.1-33.3 [facility] Comment on above: Performed By: #### BAILEY GOULD #### [facility] (DEFAULT) [address] [address] Mean Cell Hgb Conc 31.5 g/dL Low 31.9-36.5 [facility] Comment on above: Performed By: #### YULISA GOULD7 #### [facility] (DEFAULT) [address] [place] [address] 59824 Platelet mean volume (Bld) [Entitic vol] 11.2 fL Normal 8.7-12.3 [facility] Comment on above: Performed By: #### Bonifacio ARIAS CHM7 #### [facility] (DEFAULT) [address] [place] [address] 54768 Platelets (Bld) [#/Vol] 236 10*3/uL Normal 146-337 [facility] Comment on above: Performed By: #### YULISA GOULD7 #### [facility] (DEFAULT) [address] [place] [address] 98120 RBC (Bld) [#/Vol] 3.41 10*6/uL Low 4.38-5.83 [facility] Comment on above: Performed By: #### YULISA GOULD7 #### [facility] (DEFAULT) [address] [place] [address] 54303 RBC Distribution 16.0 % High 10.9-14.3 [facility] Comment on above: Performed By: #### YULISA GOULD7 #### [facility] (DEFAULT) [address] [place] [address] 76304 WBC (Bld) [#/Vol] 7.39 10*3/uL Normal 3.73-10.10 [facility] Comment on above: Performed By: #### YULISA GOULD7 #### [facility] (DEFAULT) [address] [place] [address] 82777 CHEM 7 (LYTES,BUN,CREA,GLUC) on 11-21-2023 Anion gap [Moles/Vol] 15 mmol/L 7 - 17 mmol/L [facility] Chloride [Moles/Vol] 95 mmol/L Low 98 - 10 8 mmol/L [facility] CO2 [Moles/Vol] 30 mmol/L 21 - 31 mmol/L [facility] Creatinine [Mass/Vol] 0.90 mg/dL 0.70 - 1.30 mg/dL [facility] eGFR, CKD-EPI, Male - PINF [facility] Glucose [Mass/Vol] 223 mg/dL High 70 - 99 mg/dL [facility] Interpretation and review of laboratory results Abnormal [facility] Osmolality Calc [Osmolality] 299 [facility] Potassium [Moles/Vol] 4.3 mmol/L 3.5 - 5.0 mmol/L [facility] Sodium [Moles/Vol] 136 mmol/L 135 - 145 mmol/L [facility] Urea nitrogen [Mass/Vol] 28 mg/dL High 7 - 25 mg/dL [facility] Urea nitrogen/Creatinine [Mass ratio] 31 mg/mg [facility] Anion gap [Moles/Vol] 15 mmol/L Normal 7-17 [facility] Comment on above: Performed By: #### G ASVL #### [facility] (DEFAULT) [address] [address] Chloride [Moles/Vol] 95 mmol/L Low 98-108 [facility] Comment on above: Performed By: #### G ASVL #### [facility] (DEFAULT) [address] [address] CO2 [Moles/Vol] 30 mmol/L Normal 21-31 [facility] Comment on above: Performed By: #### G ASVL #### [facility] (DEFAULT) [address] [address] Creatinine [Mass/Vol] 0.90 mg/dL Normal 0.70-1.30 [facility] Comment on above: Performed By: #### G ASVL #### [facility] (DEFAULT) [address] [address] eGFR, CKD-EPI, Male > Normal >=60 [facility] Comment on above: Result Comment: Repo rted eGFR is based on the CKD-EPI 2020 equation using creatinine, age, and sex. Performed By: #### G ASVL #### [facility] (DEFAULT) [address] [place] [address] 79870 Glucose [Mass/Vol] 223 mg/dL High 70-99 [facility] Comment on above: Performed By: #### G ASVL #### [facility] (DEFAULT) [address] [place] [address]600 Osmolality [Osmolality] 299 mosm/kg Normal 278-305 [facility] Comment on above: Performed By: #### G ASVL #### [facility] (DEFAULT) [address] [place] [address] 24429 Potassium [Moles/Vol] 4.3 mmol/L Normal 3.5-5.0 [facility] Comment on above: Performed By: #### G ASVL #### [facility] (DEFAULT) [address] [place] [address] 08392 Sodium [Moles/Vol] 136 mmol/L Normal 135-145 [facility] Comment on above: Performed By: #### G ASVL #### [facility] (DEFAULT) [address] [place] [address] 14844 Urea nitrogen [Mass/Vol] 28 mg/dL High 7-25 [facility] Comment on above: Performed By: #### G ASVL #### [facility] (DEFAULT) [address] [place] [address] 49347 Urea nitrogen/Creatinine [Mass ratio] 31 mg/mg Normal [facility] Comment on above: Performed By: #### G ASVL #### [facility] (DEFAULT) [address] [place] [address] 13806 CONTINUOUS CARDIAC MONITORIN G STRIPon 11-21-2023 [facility] CT ANGIO BRAIN/NECKon 2023 CT ANGIO BRAIN/NECK EXAM: CT ANGIO BRAIN/NECK, 11/21/2023 11:25 AM COMPARISON: CT angiography brain/neck 2023; Chest x-ray November 21, 2023. CLINICAL INDICATIONS: 68 years Male Neuro deficit, acute, stroke suspected; TECHNIQUE: A series of transaxial multislice computerized tomographic images are obtained with helical technique from top of aortic arch to vertex following bolus intravenous administration of nonionic contrast. Axial thin section source images, as well as sagittal and coronal thin section reformats, were provided at the scanner. Additional multiplanar and 3D reconstructions were provided. CONTRAST: iohexol (OMNIPAQUE) 350 MG/ML injection 1-171 mL; Route of Administration: Intravenous; Dose: 100 mL. FINDINGS: CT ANGIOGRAM NECK: AORTIC ARCH: Conventional anatomic origin of the great vessels. Atherosclerosis involving the great vessel origins is noted, with mild vessel narrowing at the origin of the left subclavian artery secondary to atherosclerotic plaque. RIGHT CAROTID ARTERY: Common carotid artery origin demonstrates mild atherosclerotic narrowing with an indwelling right common carotid/ICA stent traversing the carotid bulb. 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 Internal carotid artery origin at the bifurcation is patent. More distal cervical segments of the internal carotid artery are patent and normal in caliber. LEFT CAROTID ARTERY: Common carotid artery demonstrates multifocal areas of calcific and noncalcific atherosclerotic plaque causing moderate vessel narrowing involving the mid/distal CCA. Internal carotid artery origin at the bifurcation demonstrates mild (<50%) stenosis due to atherosclerosis. More distal cervical segments of the internal carotid artery are patent and normal in caliber. RIGHT VERTEBRAL ARTERY: Origin demonstrates severe stenosis to near-complete occlusion with only a trickle of flow extending cephalad. More distal cervical segments demonstrate complete occlusion in the proximal right V2 segment with reconstitution at the C4 vertebral body level. Additional multifocal areas of high-grade severe vessel narrowing secondary to atherosclerotic plaque extending to the dural entry site. This occlusion was evident on previous CT angiogram of the neck on outside facility on 2023. LEFT VERTEBRAL ARTERY: Origin demonstrates mild stenosis due to atherosclerosis. More distal cervical segments mild caliber narrowing secondary to facet joint hypertrophy at the C3-C4 level. Remaining portions of the left vertebral artery are patent. 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 CT ANGIOGRAM HEAD: INTERNAL CAROTID ARTERIES: Severe stenosis due to atherosclerosis bilaterally. ANTERIOR CEREBRAL ARTERIES: Patent and normal in caliber. MIDDLE CEREBRAL ARTERIES: Patent and normal in caliber. POSTERIOR CEREBRAL ARTERIES: Multifocal areas of caliber irregularity/stenosis of the bilateral proximal P1 segments and left mid P1 segment, suggestive of mild to moderate vessel caliber narrowing. 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 The left vertebral artery is dominant and patent. BASILAR ARTERY: Patent. No significant stenosis. OTHER: No aneurysm or AVM. ADDITIONAL FINDINGS: Moderate bilateral pleural effusions with associated relaxation atelectasis and fissural thickening/fluid. Patchy areas of interlobular septal thickening and ground glass changes involving the partially visualized bilateral lungs. New nonspecific hyperdense material within the right lower anterior neck soft tissues, possibly related to soft tissue hematoma/contusion (image 14, series 4). Multilevel degenerative changes of the spine. Partially visualized median sternotomy wires. IMPRESSION: 1. 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 This is similar appearance to outside CT of the neck on 2023. 2. Severe atherosclerotic narrowing of the bilateral cavernous and supraclinoid ICAs 3. Multifocal areas of caliber irregularity/stenosis of the bilateral proximal P1 segments and left mid P1 segment, suggestive of mild to moderate vessel caliber narrowing. 4. 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 5. Multilevel areas of mixed calcific/noncalcific atherosclerotic plaque causi (more content not included)... Normal [facility] CT Abdomen and Pelvis and CT angiogram Abdominal aorta WO and W contrast Messi 11-21-2023 [facility] for per fusion and CT angiogram Head vessels WO and W contrast Messi 11-21-20[facility]) [facility] Head limitedon 11-21-2023 RADIOLOGY RADIOLOGY [facility] Radiology Study observation (narrative) [facility] Head limitedOrdered By: Joce Cobb on 11-21-2023 [facility] Work Phone: CT STROKE HEAD-STROKE ALERT ONLYon 11-21-2023 CT STROKE HEAD-STROKE ALERT ONLY EXAM: CT STROKE HEAD-STROKE ALERT ONLY, 11/21/2023 11:00 AM COMPARISON: MRI brain November 12, 2023. CLINICAL INDICATIONS: 68 years Male ERT for concern for stroke, worsening left sided deficits; TECHNIQUE: A series of transaxial computerized tomographic images are obtained from base of skull to vertex without intravenous contrast. Axial whole-head and thin section posterior fossa slices are provided. Reformats: Sagittal and coronal. FINDINGS: Snowden-white matter differentiation is preserved. No acute large territory infarction is seen. Patchy periventricular white matter hypoattenuation is noted which is non-specific, but likely due to chronic small vessel ischemic changes. 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 Chronic lacunar infarcts in the bilateral basal ganglia and left thalamus. No acute intracranial hemorrhage is seen. No significant mass effect or midline shift. Ventricles are normal in size and configuration for patient age. Skull appears intact. Evidence of prior bilateral cataract surgery. Visualized paranasal sinuses are clear. Visualized mastoid air cells are clear. IMPRESSION: No acute hemorrhage, or CT signs of acute large territory infarction. Chronic microvascular ischemic changes. Sequela of old infarcts in the bilateral basal ganglia, left thalamus, right cerebellar hemisphere and vermis. Findings were discussed with SHIVAM Lopez at 11/21/2023 11:06 AM. I personally viewed and interpreted these images and I have reviewed and approved this report. Normal [facility] GLUCOSE POCon 11-21-2023 Glucose [Mass/Vol] 226 mg/dL High 70 - 99 mg/dL [facility] Interpretation and review of laboratory results Abnormal [facility] POC Sample Type CAPBL [facility] Glucose [Mass/Vol] 197 mg/dL High 70 - 99 mg/dL [facility] Interpretation and review of laboratory results Abnormal [facility] POC Sample Type [facility] Glucose [Mass/Vol] 254 mg/dL High 70 - 99 mg/dL [facility] Interpretation and review of laboratory results Abnormal [facility] POC Sample Type [facility] Glucose [Mass/Vol] 247 mg/dL High 70 - 99 mg/dL [facility] Interpretation and review of laboratory results Abnormal [facility] POC Sample Type [facility] Glucose [Mass/Vol] 204 mg/dL High 70 - 99 mg/dL [facility] Interpretation and review of laboratory results Abnormal [facility] POC Sample [facility] Glucose [Mass/Vol] 245 mg/dL High 70 - 99 mg/dL [facility] Interpretation and review of laboratory results Abnormal [facility] POC Sample Type VENO [facility] MAGNESIUMon 11-21-2023 Magnesium [Mass/Vol] 1.9 mg/dL 1.6 - 2 .6 mg/dL [facility] Magnesium [Mass/Vol] 1.9 mg/dL Normal 1.6-2.6 [facility] Comment on above: Performed By: #### G ASVL #### [facility] (DEFAULT) [address] [place] [address] No Panel Informationon 11-20 Interpretation and review of laboratory results Normal [facility] PHOSPHATE, INORGANICon 11-20 Phosphate [Mass/Vol] 3.4 mg/dL 2.2 - 4 .6 mg/dL [facility] Phosphorous 3.4 mg/dL Normal 2.2-4.6 [facility] Comment on above: Performed By: #### G ASVL #### [facility] (DEFAULT) [address] [place] [address] PLATELET COUNTon 11-21-2023 Interpretation and review of laboratory results Normal [facility] Platelet mean volume (Bld) [Entitic vol] 10.7 fL 8.7 - 12.3 fL [facility] Platelets (Bld) [#/Vol] 222 10*3/uL 146 - 337 K/uL [facility] Platelet mean volume (Bld) [Entitic vol] 10.7 fL Normal 8.7-12.3 [facility] Comment on above: Performed By: #### T YPEC #### [facility] (DEFAULT) [address] [place] [address]64 Platelets (Bld) [#/Vol] 222 10*3/uL Normal 146-337 [facility] Comment on above: Performed By: #### T YPEC #### [facility] (DEFAULT) [address] [place] [address]3955 PTTon 11-21-2023 aPTT Coag (PPP) [Time] 109.3 s High [facility] Interpretation and review of laboratory results Abnormal [facility] aPTT Coag (Bld) [Time] 109.3 s High 24.0-34.3 [facility] Comment on above: Performed By: #### L ABSARS1 #### [facility] (DEFAULT) [address] [place] [address] 90721 Portable XR Chest Viewson RADIOLOGY RADIOLOGY [facility] Radiology Study observation (narrative) [facility] XR CHEST 1 VIEW PORTABLEon 0 11-21-2023 XR CHEST 1 VIEW PORTABLE EXAM: XR CHEST 1 VIEW PORTABLE, 11/21/2023 07:40 AM COMPARISON: Compared to prior day. CLINICAL INDICATIONS: eval for improvement in pulm edema RELEVANT CLINICAL HISTORY: FINDINGS: (Adequate technique) Improvement of bilateral hazy airspace opacities most predominant on the right side. However, new patchy airspace opacities in bilateral lower lung zones more on the left. No other change. IMPRESSION: Improved pulmonary edema. New infectious/inflammator y process in bilateral lower lobes more on the left. Normal [facility] ACT* LOW RANGE, POCon 2023 ACT LOW RANGE, POC 144.0 [facility] Interpretation and review of laboratory results Normal [facility] ACT LOW RANGE, POC 161.0 High [facility] Interpretation and review of laboratory results Abnormal [facility] CALCIUMon 11-20-2023 Calcium [Mass/Vol] 8.0 mg/dL Low 8.6 - 10. 5 mg/dL [facility] Calcium [Mass/Vol] 8.0 mg/dL Low 8.6-10.5 [facility] Comment on above: Performed By: #### P TT #### [facility] (DEFAULT) [address] [place] [address] CBC,PLATELETSon 11-20-2023 Erythrocyte distribution width (RBC) [Ratio] 15.4 % High 10.9 - 14.3 % [facility] Hematocrit (Bld) [Volume fraction] 29.6 % Low 39.6 - 48.8 % [facility] Hemoglobin (Bld) [Mass/Vol] 9.4 g/dL Low 13.4 - 16.8 g/dL [facility] Interpretation and review of laboratory results Abnormal [facility] MCH (RBC) [Entitic mass] 26.9 pg 26.1 - 33.3 pg [facility] MCHC (RBC) [Mass/Vol] 31.8 g/dL Low 31.9 - 36.5 g/dL [facility] MCV (RBC) [Entitic vol] 84.8 fL 79.0 - 94.5 fL [facility] Platelet mean volume (Bld) [Entitic vol] 11.2 fL 8.7 - 12.3 fL [facility] Platelets (Bld) [#/Vol] 195 10*3/uL 146 - 337 K/uL [facility] RBC (Bld) [#/Vol] 3.49 10*6/uL Low [facility] WBC (Bld) [#/Vol] 8.15 10*3/uL 3.73 - 10.10 K/uL [facility] Hematocrit (Bld) [Volume fraction] 29.6 % Low 39.6-48.8 [facility] Comment on above: Performed By: #### T YPEC #### [facility] (DEFAULT) [address] [address] Hemoglobin (Bld) [Mass/Vol] 9.4 g/dL Low 13.4-16.8 [facility] Comment on above: Performed By: #### T YPEC #### [facility] (DEFAULT) [address] [address] MCV (RBC) [Entitic vol] 84.8 fL Normal 79.0-94.5 O [facility] Comment on above: Performed By: #### T YPEC #### [facility] (DEFAULT) [address] [address] Mean Cell Hgb 26.9 pg Normal 26.1-33.3 [facility] Comment on above: Performed By: #### T YPEC #### [facility] (DEFAULT) [address] [address] Mean Cell Hgb Conc 31.8 g/dL Low 31.9-36.5 [facility] Comment on above: Performed By: #### T YPEC #### [facility] (DEFAULT) [address] [address] Platelet mean volume (Bld) [Entitic vol] 11.2 fL Normal 8.7-12.3 [facility] Comment on above: Performed By: #### T YPEC #### [facility] (DEFAULT) [address] [place] [address]1358 Platelets (Bld) [#/Vol] 195 10*3/uL Normal 146-337 [facility] Comment on above: Performed By: #### T YPEC #### [facility] (DEFAULT) [address] [place] [address] 72504 RBC (Bld) [#/Vol] 3.49 10*6/uL Low 4.38-5.83 [facility] Comment on above: Performed By: #### T YPEC #### [facility] (DEFAULT) [address] [place] [address]297 RBC Distribution 15.4 % High 10.9-14.3 [facility] Comment on above: Performed By: #### T YPEC #### [facility] (DEFAULT) [address] [place] [address] WBC (Bld) [#/Vol] 8.15 10*3/uL Normal 3.73-10.10 [facility] Comment on above: Performed By: #### T YPEC #### [facility] (DEFAULT) [address] [place] [address] 85869 CHEM 7 (LYTES,BUN,CREA,GLUC) on 11-20-2023 Anion gap [Moles/Vol] 13 mmol/L 7 - 17 mmol/L [facility] Chloride [Moles/Vol] 98 mmol/L 98 - 10 8 mmol/L [facility] CO2 [Moles/Vol] 30 mmol/L 21 - 31 mmol/L [facility] Creatinine [Mass/Vol] 0.93 mg/dL 0.70 - 1.30 mg/dL [facility] eGFR, CKD-EPI, Male - PINF [facility] Glucose [Mass/Vol] 224 mg/dL High 70 - 99 mg/dL [facility] Osmolality Calc [Osmolality] 298 [facility] Potassium [Moles/Vol] 3.5 mmol/L 3.5 - 5.0 mmol/L [facility] Sodium [Moles/Vol] 137 mmol/L 135 - 145 mmol/L [facility] Urea nitrogen [Mass/Vol] 23 mg/dL 7 - 25 mg/dL [facility] Urea nitrogen/Creatinine [Mass ratio] 25 mg/mg [facility] Anion gap [Moles/Vol] 13 mmol/L Normal 7-17 [facility] Comment on above: Performed By: #### P TT #### [facility] (DEFAULT) [address] [place] [address] Chloride [Moles/Vol] 98 mmol/L Normal 98-108 [facility] Comment on above: Performed By: #### P TT #### [facility] (DEFAULT) [address] [place] [address] 43086 CO2 [Moles/Vol] 30 mmol/L Normal 21-31 [facility] Comment on above: Performed By: #### P TT #### [facility] (DEFAULT) [address] [place] [address] 42797 Creatinine [Mass/Vol] 0.93 mg/dL Normal 0.70-1.30 [facility] Comment on above: Performed By: #### P TT #### [facility] (DEFAULT) [address] [place] [address] 21948 eGFR, CKD-EPI, Male > Normal >=60 [facility] Comment on above: Result Comment: Repo rted eGFR is based on the CKD-EPI 2020 equation using creatinine, age, and sex. Performed By: #### P TT #### [facility] (DEFAULT) [address] [place] [address] 16773 Glucose [Mass/Vol] 224 mg/dL High 70-99 [facility] Comment on above: Performed By: #### P TT #### [facility] (DEFAULT) [address] [place] [address] 22227 Osmolality [Osmolality] 298 mosm/kg Normal 278-305 [facility] Comment on above: Performed By: #### P TT #### [facility] (DEFAULT) [address] [place] [address] Potassium [Moles/Vol] 3.5 mmol/L Normal 3.5-5.0 [facility] Comment on above: Performed By: #### P TT #### [facility] (DEFAULT) [address] [place] [address] Sodium [Moles/Vol] 137 mmol/L Normal 135-145 [facility] Comment on above: Performed By: #### P TT #### [facility] (DEFAULT) [address] [place] [address] Urea nitrogen [Mass/Vol] 23 mg/dL Normal 7-25 [facility] Comment on above: Performed By: #### P TT #### [facility] (DEFAULT) [address] [place] [address] Urea nitrogen/Creatinine [Mass ratio] 25 mg/mg Normal [facility] Comment on above: Performed By: #### P TT #### [facility] (DEFAULT) [address] [place] [address] CONTINUOUS CARDIAC MONITORIN G STRIPon 11-20-2023 [facility] Cardiac catheterization stud yon 11-20-2023 Radiology [facility]narrative) [facility]SE POCon 11-20-2023 Glucose [Mass/Vol] 213 mg/dL High 70 - 99 mg/dL [facility] Interpretation and review of laboratory results Abnormal [facility] POC Sample Type CAPBL [facility] Glucose [Mass/Vol] 200 mg/dL High 70 - 99 mg/dL [facility] Interpretation and review of laboratory results Abnormal [facility] POC Sample Type [facility] Glucose [Mass/Vol] 220 mg/dL High 70 - 99 mg/dL [facility] Interpretation and review of laboratory results Abnormal [facility] POC Sample Type [facility] Glucose [Mass/Vol] 217 mg/dL High 70 - 99 mg/dL [facility] Interpretation and review of laboratory results Abnormal [facility] POC Sample Type [facility]BL [facility] Glucose [Mass/Vol] 211 mg/dL High 70 - 99 mg/dL [facility] Interpretation and review of laboratory results Abnormal [facility] POC Sample Type CAPBL [facility] Glucose [Mass/Vol] 186 mg/dL High 70 - 99 mg/dL [facility] Interpretation and review of laboratory results Abnormal [facility] POC Sample Type CAPBL [facility] Glucose [Mass/Vol] 214 mg/dL High 70 - 99 mg/dL [facility] Interpretation and review of laboratory results Abnormal [facility] POC Sample Type VENO [facility] MAGNESIUMon 11-20-2023 Magnesium [Mass/Vol] 2.2 mg/dL 1.6 - 2 .6 mg/dL [facility] Magnesium [Mass/Vol] 2.2 mg/dL Normal 1.6-2.6 [facility] Comment on above: Order Comment: Medic ine Electrolyte Replacement Protocol: Recheck magnesium level eight (8) hours after each 4g Magnesium Sulfate dose if most recent magnesium level is less than 1.3 mg/dL. Draw with next day morning labs after replacements for previous magnesium levels between 1.3-1.9 mg/dL. Performed By: #### T YPEC #### [facility] (DEFAULT) [address] [address] Magnesium [Mass/Vol] 1.6 mg/dL 1.6 - 2 .6 mg/dL [facility] Magnesium [Mass/Vol] 1.6 mg/dL Normal 1.6-2.6 [facility] Comment on above: Performed By: #### P TT #### [facility] (DEFAULT) [address] [place] [address]34[address] No Panel Informationon 11-19 Interpretation and review of laboratory results Normal [facility] Interpretation and review of laboratory results Abnormal [facility] Interpretation and review of laboratory results Normal [facility] PHOSPHATE, INORGANICon 11-19 Phosphate [Mass/Vol] 3.2 mg/dL 2.2 - 4 .6 mg/dL [facility] Phosphorous 3.2 mg/dL Normal 2.2-4.6 [facility] Comment on above: Performed By: #### P TT #### [facility] (DEFAULT) [address] [place] [address] 90064 POTASSIUMon 11-20-2023 Potassium [Moles/Vol] 4.2 mmol/L 3.5 - 5.0 mmol/L [facility] Potassium [Moles/Vol] 4.2 mmol/L Normal 3.5-5.0 [facility] Comment on above: Order Comment: Medic ine Electrolyte Replacement Protocol: Recheck eight hours after each 60 mEq dose of Potassium chloride if most recent Potassium is less than 3 mmol/L. Draw with next day morning labs after 40 mEq dose of Potassium chloride. Performed By: #### T YPEC #### [facility] (DEFAULT) [address] [place] [address] 10253 PTTon 11-20-2023 aPTT Coag (PPP) [Time] 100.9 s Critically high [facility] Interpretation and review of laboratory results Abnormal [facility] aPTT Coag (Bld) [Time] 100.9 s Critically high 24.0-34. 3 [facility] Comment on above: Result Comment: Spec imen integrity checked. Repeated and verified Performed By: #### L ABHSTI1 #### [facility] (DEFAULT) [address] [place] [address] 22581 aPTT Coag (PPP) [Time] 126.0 s High OS U [facility] Interpretation and review of laboratory results [facility] aP[facility] Coag (Bld) [Time] 126.0 s High 24.0-34.3 [facility] Comment on above: Performed By: #### P TT ####[facility] (DEFAULT)[address] [place] [address] aPTT Coag (PPP) [Time] 109.1 s High OS U [facility] Interpretation and review of laboratory results Abnormal [facility] aPTT Coag (Bld) [Time] 109.1 s High 24.0-34.3 [facility] Comment on above: Performed By: #### L ABHSTI1 #### [facility] (DEFAULT) [address] [place] [address] 6[address]40 aPTT Coag (Bld) [Time] 88.2 s High 24.0-34.3 [facility] Comment on above: Performed By: #### T YPEC #### [facility] (DEFAULT) [address] [place] [address] 51155 aPTT Coag (Bld) [Time] 57.5 s High 24.0-34.3 [facility] Comment on above: Performed By: #### P TT #### [facility] (DEFAULT) [address] [place] [address] 76652 PTTOrdered By: Liane castellanos on 11-20-2023 aPTT Coag (PPP) [Time] 88.2 s High OS U [facility] Interpretation and review of laboratory results Abnormal [facility] PTTOrdered By: Satish Crandall on 11-20-2023 aPTT Coag (PPP) [Time] 57.5 s High OS U [facility] Interpretation and review of laboratory results Abnormal [facility] Port[facility] Chest Viewson RADIOLOGY RADIOLOGY [facility] Radiology Study observation (narrative) [facility] Portable XR Chest ViewsOrder ed By: Yuliet Grover on 11-20-2023 [facility] Work Phone: US.doppler Lower extremity v ein - bilateralOrdered By: Etienne Arias on 11-20-2023 [facility] Work Phone: US.doppler Lower extremity v ein - bilateralon 11-20-2023 Radiology Study observation (narrative) [facility] XR CHEST 1 VIEW PORTABLEon 0 11-20-2023 XR CHEST 1 VIEW PORTABLE EXAM: XR CHEST 1 VIEW PORTABLE, 11/20/2023 06:14 AM COMPARISON: November 19, 2023 CLINICAL INDICATIONS: pleural effusion RELEVANT CLINICAL HISTORY: FINDINGS: (Adequate technique) Sternal wires are aligned and intact. Chronic changes from left humeral neck fracture. Degenerative changes in the spine. Diffuse interstitial changes and mild asymmetric hazy opacity in the right thorax. Stable cardiomediastinal silhouette. IMPRESSION: Likely small right effusion. Mild edema. Normal [facility] CALCIUMon 11-19-2023 Calcium [Mass/Vol] 8.4 mg/dL Low 8.6 - 10. 5 mg/dL [facility] Calcium [Mass/Vol] 8.4 mg/dL Low 8.6-10.5 [facility] Comment on above: Performed By: #### P TT #### [facility] (DEFAULT) [address] [place] [address] CBC,PLATELETSon 11-19-2023 Erythrocyte distribution width (RBC) [Ratio] 15.2 % High 10.9 - 14.3 % [facility] Hematocrit (Bld) [Volume fraction] 31.1 % Low 39.6 - 48.8 % [facility] Hemoglobin (Bld) [Mass/Vol] 10.3 g/dL Low 13.4 - 16.8 g/dL [facility] Interpretation and review of laboratory results Abnormal [facility] MCH (RBC) [Entitic mass] 27.9 pg 26.1 - 33.3 pg [facility] MCHC (RBC) [Mass/Vol] 33.1 g/dL 31.9 - 36.5 g/dL [facility] MCV (RBC) [Entitic vol] 84.3 fL 79.0 - 94.5 fL [facility] Platelet mean volume (Bld) [Entitic vol] 11.1 fL 8.7 - 12.3 fL [facility] Platelets (Bld) [#/Vol] 209 10*3/uL 146 - 337 K/uL [facility] RBC (Bld) [#/Vol] 3.69 10*6/uL Low [facility] WBC (Bld) [#/Vol] 9.44 10*3/uL 3.73 - 10.10 K/uL [facility] Hematocrit (Bld) [Volume fraction] 31.1 % Low 39.6-48.8 [facility] Comment on above: Performed By: #### L [email or web address] #### [facility] (DEFAULT) [address] [address] Hemoglobin (Bld) [Mass/Vol] 10.3 g/dL Low 13.4-16.8 [facility] Comment on above: Performed By: #### L [id number] #### [facility] (DEFAULT) [address] [address] MCV (RBC) [Entitic vol] 84.3 fL Normal 79.0-94.5 O [facility] Comment on above: Performed By: #### L [email or web address] #### [facility] (DEFAULT) [address] [address] Mean Cell Hgb 27.9 pg Normal 26.1-33.3 [facility] Comment on above: Performed By: #### L [id number] #### [facility] (DEFAULT) [address] [place] [address]75[address] Mean Cell Hgb Conc 33.1 g/dL Normal 31.9-36.5 [facility] Comment on above: Performed By: #### L [id number] #### [facility] (DEFAULT) [address] [place] [address]49[address] Platelet mean volume (Bld) [Entitic vol] 11.1 fL Normal 8.7-12.3 [facility] Comment on above: Performed By: #### L [email or web address] #### [facility] (DEFAULT) [address] [place] [address] Platelets (Bld) [#/Vol] 209 10*3/uL Normal 146-337 [facility] Comment on above: Performed By: #### L [email or web address] #### [facility] (DEFAULT) [address] [address] RBC (Bld) [#/Vol] 3.69 10*6/uL Low 4.38-5.83 [facility] Comment on above: Performed By: #### L [email or web address] #### [facility] (DEFAULT) [address] [address] RBC Distribution 15.2 % High 10.9-14.3 [facility] Comment on above: Performed By: #### L [id number] #### [facility] (DEFAULT) [address] [place] [address] WBC (Bld) [#/Vol] 9.44 10*3/uL Normal 3.73-10.10 [facility] Comment on above: Performed By: #### L [email or web address] #### [facility] (DEFAULT) [address] [address] CHEM 7 (LYTES,BUN,CREA,GLUC) Ordered By: Brian Velásquez on 11-19-2023 Anion gap [Moles/Vol] 15 mmol/L 7 - 17 mmol/L [facility] Chloride [Moles/Vol] 95 mmol/L Low 98 - 10 8 mmol/L [facility] CO2 [Moles/Vol] 27 mmol/L 21 - 31 mmol/L [facility] Creatinine [Mass/Vol] 0.92 mg/dL 0.70 - 1.30 mg/dL [facility] eGFR, CKD-EPI, Male - PINF [facility] Glucose [Mass/Vol] 304 mg/dL High 70 - 99 mg/dL [facility] Interpretation and review of laboratory results Abnormal [facility] Osmolality Calc [Osmolality] 296 [facility] Potassium [Moles/Vol] 3.9 mmol/L 3.5 - 5.0 mmol/L [facility] Sodium [Moles/Vol] 133 mmol/L Low 135 - 145 mmol/L [facility] Urea nitrogen [Mass/Vol] 22 mg/dL 7 - 25 mg/dL [facility] Urea nitrogen/Creatinine [Mass ratio] 24 mg/mg [facility] CHEM 7 (LYTES,BUN,CREA,GLUC) on 11-19-2023 Anion gap [Moles/Vol] 15 mmol/L Normal 7-17 [facility] Comment on above: Performed By: #### X M #### [facility] (DEFAULT) [address] [address] Chloride [Moles/Vol] 95 mmol/L Low 98-108 [facility] Comment on above: Performed By: #### X M #### [facility] (DEFAULT) [address] [place] [address] CO2 [Moles/Vol] 27 mmol/L Normal 21-31 [facility] Comment on above: Performed By: #### X M #### [facility] (DEFAULT) [address] [address] Creatinine [Mass/Vol] 0.92 mg/dL Normal 0.70-1.30 [facility] Comment on above: Performed By: #### X M #### [facility] (DEFAULT) [address] [place] [address] 68452 eGFR, CKD-EPI, Male > Normal >=60 [facility] Comment on above: Result Comment: Repo rted eGFR is based on the CKD-EPI 2020 equation using creatinine, age, and sex. Performed By: #### X M #### [facility] (DEFAULT) [address] [place] [address] Glucose [Mass/Vol] 304 mg/dL High 70-99 [facility] Comment on above: Performed By: #### X M #### [facility] (DEFAULT) [address] [place] [address]70 Osmolality [Osmolality] 296 mosm/kg Normal 278-305 [facility] Comment on above: Performed By: #### X M #### [facility] (DEFAULT) [address] [place] [address] Potassium [Moles/Vol] 3.9 mmol/L Normal 3.5-5.0 [facility] Comment on above: Performed By: #### X M #### [facility] (DEFAULT) [address] [place] [address] Sodium [Moles/Vol] 133 mmol/L Low 135-145 [facility] Comment on above: Performed By: #### X M #### [facility] (DEFAULT) [address] [place] [address]88 Urea nitrogen [Mass/Vol] 22 mg/dL Normal 7-25 [facility] Comment on above: Performed By: #### X M #### [facility] (DEFAULT) [address] [place] [address] Urea nitrogen/Creatinine [Mass ratio] 24 mg/mg Normal [facility] Comment on above: Performed By: #### X M #### [facility] (DEFAULT) [address] [place] [address] GLUCOSE POCon 11-19-2023 Glucose [Mass/Vol] 250 mg/dL High 70 - 99 mg/dL [facility] Interpretation and review of laboratory results Abnormal [facility] POC Sample Type [facility] Glucose [Mass/Vol] 373 mg/dL High 70 - 99 mg/dL [facility] Interpretation and review of laboratory results Abnormal [facility] POC Sample Type VENO [facility] Glucose [Mass/Vol] 250 mg/dL High 70 - 99 mg/dL [facility] Interpretation and review of laboratory results Abnormal [facility] POC Sample Type CAPBL [facility] Glucose [Mass/Vol] 263 mg/dL High 70 - 99 mg/dL [facility] Interpretation and review of laboratory results Abnormal [facility] POC Sample Type CAPBL [facility] HIGH SENSITIVITY TROPONIN I - SINGLE ORDERon 11-19-2023 Interpretation and review of laboratory results Abnormal [facility] Troponin I.cardiac High sensitivity method [Mass/Vol] 2243 ng/L High NINF - 53 ng/L [facility] hs-Troponin I 2243 ng/L High <53 [facility] Comment on above: Order Comment: Acute Coronary Syndrome (ACS): Initial Evaluation and Management: [email or web address] [email or web address] Result Comment: Sugg estive of myocardial injury Performed By: #### L [email or web address] #### [facility] (DEFAULT) [address] [place] [address] Interpretation and review of laboratory results Abnormal [facility] Troponin I.cardiac High sensitivity method [Mass/Vol] 2454 ng/L High NINF - 53 ng/L [facility] hs-Troponin I 2454 ng/L High <53 [facility] Comment on above: Order Comment: Use a shady, foam, polyester, or flocked swab to collect a nasal or nasopharyngeal specimen. After collection, place in a clean, plastic screw cap vial, cap tightly and label with patient information. Transport double bagged in biohazard bag at room temperature. Must be received within 60 minutes of collection. Collection must be done while wearing N-95 mask, eye protection, gown, and gloves. Result Comment: Maxine estive of myocardial injury Performed By: #### L [email or web address] #### [facility] (DEFAULT) [address] [place] [address] Interpretation and review of laboratory results Abnormal [facility] Troponin I.cardiac High sensitivity method [Mass/Vol] 2583 ng/L High NINF - 53 ng/L [facility] hs-Troponin I 2583 ng/L High <53 [facility] Comment on above: Order Comment: Acute Coronary Syndrome (ACS): Initial Evaluation and Management:[email or web address] Result Comment: Maxine estive of myocardial injury Performed By: #### L [email or web address] ####[facility] (DEFAULT)[address] [place] [address] MAGNESIUMon 11-19-2023 Magnesium [Mass/Vol] 1.4 mg/dL Low 1.6 - 2 .6 mg/dL [facility] Magnesium [Mass/Vol] 1.4 mg/dL Low 1.6-2.6 [facility] Comment on above: Performed By: #### X M #### [facility] (DEFAULT) [address] [address] No Panel Informationon 11-18 Interpretation and review of laboratory results Abnormal [facility] PHOSPHATE, INORGANICon 11-18 Interpretation and review of laboratory results Normal [facility] Phosphate [Mass/Vol] 2.5 mg/dL 2.2 - 4 .6 mg/dL [facility] Phosphorous 2.5 mg/dL Normal 2.2-4.6 [facility] Comment on above: Performed By: #### X M #### [facility] (DEFAULT) [address] [place] [address] PTTOrdered By: Davon Tafoya on 11-19-2023 aPTT Coag (PPP) [Time] 99.1 s High OS [facility] Interpretation and review of laboratory results Abnormal [facility] PTTon 11-19-2023 aPTT Coag (Bld) [Time] 99.1 s High 24.0-34.3 [facility] Comment on above: Performed By: #### L [email or web address] #### [facility] (DEFAULT) [address] [place] [address] aPTT Coag (PPP) [Time] 59.9 s High OS [facility] Interpretation and review of laboratory results Abnormal [facility] aPTT Coag (Bld) [Time] 59.9 s High 24.0-34.3 [facility] Comment on above: Order Comment: After initiation a PTT should be checked every 6 hours from time of last dose change or, if dose has not changed, 6 hours after last PTT result posted.? The frequent monitoring should occur until PTT in goal range for two consecutive lab draws without dose changes at which time PTTs may be checked no less frequently than every 12 hours.? If dose requires a change, PTT should be monitored at least every 6 hours until titration is no longer indicated, then as directed above.? If PTT above goal range refer to medication administration instructions. Performed By: #### P TT #### [facility] (DEFAULT) [address] [place] [address] aPTT Coag (PPP) [Time] 81.0 s High OS [facility] Interpretation and review of laboratory results Abnormal [facility] aPTT Coag (Bld) [Time] 81.0 s High 24.0-34.3 [facility] Comment on above: Order Comment: After initiation a PTT should be checked every 6 hours from time of last dose change or, if dose has not changed, 6 hours after last PTT result posted.? The frequent monitoring should occur until PTT in goal range for two consecutive lab draws without dose changes at which time PTTs may be checked no less frequently than every 12 hours.? If dose requires a change, PTT should be monitored at least every 6 hours until titration is no longer indicated, then as directed above.? If PTT above goal range refer to medication administration instructions. Performed By: #### M YULISA ARIAS7 #### [facility] (DEFAULT) [address] [place] [address] Portable XR Chest Viewson RADIOLOGY RADIOLOGY [facility] RADIOLOGY RADIOLOGY [facility] Radiology Study observation (narrative) [facility] VENOUS BLOOD GAS PLUS LACTAT Surjit 11-19-2023 Base excess Calc (Bld) [Moles/Vol] 4.8 mmol/L High -3.0 - 3.0 mmol/L [facility] CO2 (Bld) [Partial pressure] 38 mm[Hg] [facility] HCO3 (Bld) [Moles/Vol] 28 mmol/L 22 - 29 mmol/L [facility] Interpretation and review of laboratory results Abnormal [facility] Lactate [Moles/Vol] 1.6 mmol/L 0.5 - 1. 6 mmol/L [facility] Oxygen (Bld) [Partial pressure] 61 mm[Hg] mm Hg [facility] Oxygen saturation in Blood 91 % High 70 - 80 % [facility] pH (Bld) 7.48 [pH] High 7.32 - 7.43 [facility] Specimen source Nom (Unsp spec) Venous [facility] Base Excess 4.8 mmol/L High -3.0-3.0 [facility] Comment on above: Performed By: #### T YPEC #### [facility] (DEFAULT) [address] [address] HCO3 (Bld) [Moles/Vol] 28 mmol/L Normal 22-29 [facility] Comment on above: Performed By: #### T YPEC #### [facility] (DEFAULT) [address] [address] Lactate, Whole Blood 1.6 mmol/L Normal 0.5-1.6 [facility] Comment on above: Performed By: #### T YPEC #### [facility] (DEFAULT) [address] [address] Oxygen saturation in Blood 91 % High 70-80 [facility] Comment on above: Performed By: #### T YPEC #### [facility] (DEFAULT) [address] [address] pCO2, Venous 38 mm Hg Normal 36-52 [facility] Comment on above: Performed By: #### T YPEC #### [facility] (DEFAULT) [address] [address] pH, Venous 7.48 High 7.32-7.43 [facility] Comment on above: Performed By: #### T YPEC #### [facility] (DEFAULT) [address] [address] pO2, Venous 61 mm Hg Normal [facility] Comment on above: Result Comment: Veno us pO2 is not recommended for the evaluation of oxygen status, clinical correlation is recommended. Performed By: #### T YPEC #### [facility] (DEFAULT) [address] [address] Specimen type Nom (Spec) Venous Normal [facility] Comment on above: Performed By: #### T YPEC #### [facility] (DEFAULT) [address] [place] [address] XR CHEST 1 VIEW PORTABLEon 0 11-19-2023 XR CHEST 1 VIEW PORTABLE EXAM: XR CHEST 1 VIEW PORTABLE, 11/19/2023 06:01 AM CLINICAL INDICATIONS: eval fluid status RELEVANT CLINICAL HISTORY: COMPARISON: Compared to the prior study performed one day prior. FINDINGS: Midline sternal wires. Borderline edema, improved. Left basilar volume loss, improved. Degenerative change of the thoracic spine. IMPRESSION: Persistent but improved borderline edema and left basilar volume loss. Normal [facility] XR CHEST 1 VIEW PORTABLE EXAM: XR CHEST 1 VIEW PORTABLE, 11/18/2023 20:30 PM CLINICAL INDICATIONS: concern for flash pulmonary edema RELEVANT CLINICAL HISTORY: COMPARISON: Compared to the study performed earlier the same day at 5:53 AM FINDINGS: Unchanged midline sternal wires. No pneumothorax. Persistent but improved pulmonary edema. Upper normal heart size. Mild left basilar volume loss trace left pleural effusion. Scoliosis and degenerative change of the thoracic spine. Deformity of the left humerus, similar to previous studies. IMPRESSION: Persistent but improved interstitial pulmonary edema. Normal [facility] ARTERIAL BLOOD GAS PLUS LACT ATEon 11-18-2023 Base excess Calc (Bld) [Moles/Vol] 0.6 mmol/L -3.0 - 3.0 mmol/L [facility] CO2 (Bld) [Partial pressure] 41 mm[Hg] [facility] HCO3 (Bld) [Moles/Vol] 25 mmol/L 22 - 28 mmol/L [facility] Interpretation and review of laboratory results Abnormal [facility] Lactate [Moles/Vol] 1.7 mmol/L High 0.5 - 1. 6 mmol/L [facility] Oxygen (Bld) [Partial pressure] 91 mm[Hg] [facility] Oxygen saturation in Blood 98 % 94 - 98 % [facility] pH (Bld) 7.40 [pH] 7.35 - 7.45 [facility] Specimen source Nom (Unsp spec) Arterial [facility] Base Excess 0.6 mmol/L Normal -3.0-3.0 [facility] Comment on above: Performed By: #### T YPEC #### [facility] (DEFAULT) [address] [address] HCO3 (Bld) [Moles/Vol] 25 mmol/L Normal 22-28 [facility] Comment on above: Performed By: #### T YPEC #### [facility] (DEFAULT) [address] [address] Lactate, Whole Blood 1.7 mmol/L High 0.5-1.6 [facility] Comment on above: Performed By: #### T YPEC #### [facility] (DEFAULT) [address] [address] Oxygen saturation in Blood 98 % Normal 94-98 [facility] Comment on above: Performed By: #### T YPEC #### [facility] (DEFAULT) [address] [address] pCO2 41 mm Hg Normal 32-48 [facility] Comment on above: Performed By: #### T YPEC #### [facility] (DEFAULT) [address] [address] pH, Arterial 7.40 Normal 7.35-7.45 [facility] Comment on above: Performed By: #### T YPEC #### [facility] (DEFAULT) [address] [address] pO2 91 mm Hg Normal 83-108 [facility] Comment on above: Performed By: #### T YPEC #### [facility] (DEFAULT) [address] [address] Specimen type Nom (Spec) Arterial Normal [facility] Comment on above: Performed By: #### T YPEC #### [facility] (DEFAULT) [address] [address] B-TYPE NATRIURETIC PEPTIDE ( BRAIN)on 11-18-2023 Interpretation and review of laboratory results Abnormal [facility] Natriuretic peptide B (Bld) [Mass/Vol] 259 pg/mL High 0 - 100 pg/mL [facility] Natriuretic peptide B (Bld) [Mass/Vol] 259 pg/mL High 0-100 [facility] Comment on above: Performed By: #### T YPEC #### [facility] (DEFAULT) [address] [place] [address] CALCIUMon 11-18-2023 Calcium [Mass/Vol] 8.5 mg/dL Low 8.6 - 10. 5 mg/dL [facility] Calcium [Mass/Vol] 8.5 mg/dL Low 8.6-10.5 [facility] Comment on above: Performed By: #### G ASVL #### [facility] (DEFAULT) [address] [place] [address] CBC,PLATELETSon 11-18-2023 Erythrocyte distribution width (RBC) [Ratio] 15.1 % High 10.9 - 14.3 % [facility] Hematocrit (Bld) [Volume fraction] 35.7 % Low 39.6 - 48.8 % [facility] Hemoglobin (Bld) [Mass/Vol] 11.4 g/dL Low 13.4 - 16.8 g/dL [facility] Interpretation and review of laboratory results Abnormal [facility] MCH (RBC) [Entitic mass] 27.5 pg 26.1 - 33.3 pg [facility] MCHC (RBC) [Mass/Vol] 31.9 g/dL 31.9 - 36.5 g/dL [facility] MCV (RBC) [Entitic vol] 86.0 fL 79.0 - 94.5 fL [facility] Platelet mean volume (Bld) [Entitic vol] 10.7 fL 8.7 - 12.3 fL [facility] Platelets (Bld) [#/Vol] 235 10*3/uL 146 - 337 K/uL [facility] RBC (Bld) [#/Vol] 4.15 10*6/uL [facility] WBC (Bld) [#/Vol] 9.69 10*3/uL 3.73 - 10.10 K/uL [facility] Hematocrit (Bld) [Volume fraction] 35.7 % Low 39.6-48.8 [facility] Comment on above: Performed By: #### T YPEC #### [facility] (DEFAULT) [address] [address] Hemoglobin (Bld) [Mass/Vol] 11.4 g/dL Low 13.4-16.8 [facility] Comment on above: Performed By: #### T YPEC #### [facility] (DEFAULT) [address] [address] MCV (RBC) [Entitic vol] 86.0 fL Normal 79.0-94.5 [facility] Comment on above: Performed By: #### T YPEC #### [facility] (DEFAULT) [address] [address] Mean Cell Hgb 27.5 pg Normal 26.1-33.3 [facility] Comment on above: Performed By: #### T YPEC #### [facility] (DEFAULT) [address] [address] Mean Cell Hgb Conc 31.9 g/dL Normal 31.9-36.5 [facility] Comment on above: Performed By: #### T YPEC #### [facility] (DEFAULT) [address] [address] Platelet mean volume (Bld) [Entitic vol] 10.7 fL Normal 8.7-12.3 [facility] Comment on above: Performed By: #### T YPEC #### [facility] (DEFAULT) [address] [address] Platelets (Bld) [#/Vol] 235 10*3/uL Normal 146-337 [facility] Comment on above: Performed By: #### T YPEC #### [facility] (DEFAULT) [address] [place] [address] RBC (Bld) [#/Vol] 4.15 10*6/uL Low 4.38-5.83 [facility] Comment on above: Performed By: #### T YPEC #### [facility] (DEFAULT) [address] [place] [address] RBC Distribution 15.1 % High 10.9-14.3 [facility] Comment on above: Performed By: #### T YPEC #### [facility] (DEFAULT) [address] [place] [address] WBC (Bld) [#/Vol] 9.69 10*3/uL Normal 3.73-10.10 [facility] Comment on above: Performed By: #### T YPEC #### [facility] (DEFAULT) [address] [place] [address] CHEM 7 (LYTES,BUN,CREA,GLUC) on 11-18-2023 Anion gap [Moles/Vol] 14 mmol/L 7 - 17 mmol/L [facility] Chloride [Moles/Vol] 102 mmol/L 98 - 10 8 mmol/L [facility] CO2 [Moles/Vol] 25 mmol/L 21 - 31 mmol/L [facility] Creatinine [Mass/Vol] 0.81 mg/dL 0.70 - 1.30 mg/dL [facility] eGFR, CKD-EPI, Male - PINF [facility] Glucose [Mass/Vol] 221 mg/dL High 70 - 99 mg/dL [facility] Osmolality Calc [Osmolality] 297 [facility] Potassium [Moles/Vol] 4.1 mmol/L 3.5 - 5.0 mmol/L [facility] Sodium [Moles/Vol] 137 mmol/L 135 - 145 mmol/L [facility] Urea nitrogen [Mass/Vol] 18 mg/dL 7 - 25 mg/dL [facility] Urea nitrogen/Creatinine [Mass ratio] 22 mg/mg [facility] Anion gap [Moles/Vol] 14 mmol/L Normal 7-17 [facility] Comment on above: Performed By: #### C A, MGO, IPB, CHM7 ####[facility] (DEFAULT)[address] [place] [address] Chloride [Moles/Vol] 102 mmol/L Normal 98-108 [facility] Comment on above: Performed By: #### C A, MGO, IPB, CHM7 ####[facility] (DEFAULT)[address] [place] [address] CO2 [Moles/Vol] 25 mmol/L Normal 21-31 [facility] Comment on above: Performed By: #### Eduardo A, MGO, IPB, CHM7 ####[facility] (DEFAULT)[address] [place] [address] Creatinine [Mass/Vol] 0.81 mg/dL Normal 0.70-1.30 [facility] Comment on above: Performed By: #### Eduardo Kapadia, MGO, IPB, CHM7 ####[facility] (DEFAULT)[address] [place] [address] eGFR, CKD-EPI, Male > Normal >=60 [facility] Comment on above: Result Comment: Repo rted eGFR is based on the CKD-EPI 2020 equation using creatinine, age, and sex. Performed By: #### C A, MGO, IPB, CHM7 ####[facility] (DEFAULT)[address] [place] [address] Glucose [Mass/Vol] 221 mg/dL High 70-99 [facility] Comment on above: Performed By: #### C A, MGO, IPB, CHM7 ####[facility] (DEFAULT)[address] [place] [address] Osmolality [Osmolality] 297 mosm/kg Normal 278-305 [facility] Comment on above: Performed By: #### C A, MGO, IPB, CHM7 ####[facility] (DEFAULT)[address] [place] [address] Potassium [Moles/Vol] 4.1 mmol/L Normal 3.5-5.0 [facility] Comment on above: Performed By: #### C A, MGO, IPB, CHM7 ####[facility] (DEFAULT)[address] [place] [address] Sodium [Moles/Vol] 137 mmol/L Normal 135-145 [facility] Comment on above: Performed By: #### C A, MGO, IPB, CHM7 ####[facility] (DEFAULT)[address] [place] [address] Urea nitrogen [Mass/Vol] 18 mg/dL Normal 7-25 [facility] Comment on above: Performed By: #### C A, MGO, IPB, CHM7 ####[facility] (DEFAULT)[address] [place] [address] Urea nitrogen/Creatinine [Mass ratio] 22 mg/mg Normal [facility] Comment on above: Performed By: #### C A, MGO, IPB, CHM7 ####[facility] (DEFAULT)[address] [place] [address] CONTINUOUS CARDIAC MONITORIN G STRIPon 11-18-2023 [facility] ECGOrdered By: Etienne Stratton on 11-18-2023 [facility] Work Phone: ECGon 11-18-2023 [facility] ECHOCARDIOGRAM LIMITED/FOLLO WUPon 11-18-2023 ECHOCARDIOGRAM LIMITED/FOLLOWUP Limited study. The left ventricular chamber size and systolic function are normal. LVEF 55-60%. Normal LV wall motion. Grade II diastolic dysfunction. The right ventricular chamber size and systolic function are normal. Estimated RVSP 44 mmHg. Table formatting from the original result was not included. Images from the original result were not included. Facility [facility] Patient Information Patient Name Yony Vega Legal Sex Male Indication for Exam Priority: Urgent Dx: Abnormal EKG [R94.31 (ICD-10-CM)] Order Question Reason for Exam limited for LV function and wall motion Interpretation Summary Limited study. The left ventricular chamber size and systolic function are normal. LVEF 55-60%. Normal LV wall motion. Grade II diastolic dysfunction. The right ventricular chamber size and systolic function are normal. Estimated RVSP 44 mmHg. Findings Left Ventricle Chamber size is normal. Normal wall thickness. Normal global systolic function. Regional wall motion is normal. Ejection fraction is normal (55 - 60%). Diastolic function is consistent with pseudonormalization (grade II). Right Ventricle Chamber size is normal. Systolic function is normal. Left Atrium Left atrium not assessed. Systolic blunting of pulmonary venous inflow in the pulmonary veins. Right Atrium Right atrium not assessed. Septum Atrial septum not assessed. Mitral Valve Leaflet calcification. Leaflet mobility is normal. Mild posterior annular calcification. Mitral valve function not assessed. Aortic Valve Trileaflet valve. Leaflet calcification. Leaflet mobility is normal. Aortic valve function not assessed. Tricuspid Valve Normal leaflets. Leaflet mobility is normal. Trace regurgitation. No stenosis. Estimated right ventricular systolic pressure is 44 mmHg. Pulmonic Valve Pulmonic valve not assessed. Pulmonic valve function not assessed. Aorta Aorta not assessed. Pericardium Appears normal. No pericardial effusion. IVC/SVC The inferior vena cava is normal in size. The inferior vena cava structure has a diameter <21 mm and decreases >50% during inspiration. Reading Providers Reading Role Read Date Enrique Gonzalez MD Echo [place] 11/18/2023 Wall Scoring Score Index: 1.00 The left ventricular wall motion is normal. Left Heart Measurements LV - Systole LV EDV BP 75 mL LV ESV BP 34 mL BP EF 55 % LV stroke volume BP (ml) 41 mL LV stroke volume index BP 23.7 mL/m2 LV - Diastole MV pk E jesse 1.34 m/s MV pk A jesse 0.81 m/s E/A ratio 1.65 e' septal pk jesse 0.07 m/s e' lateral pk jesse 0.12 m/s Avg e' pk jesse 0.09 m/s E/e' septal ratio 18.93 E/e' lateral ratio 11.39 Avg E/e' ratio 15.16 Right Heart Measurements RV - 2D RV basal diam 2.81 cm RV mid diam 1.68 cm RV long diam 7.37 cm RV Area diastolic 13.28 cm2 RV Area systolic 8.35 cm2 RV Fractional area change 37.1 % RV - Doppler TAPSE 0.92 cm RV S' 8.15 cm/s Right Atrium EST RAP 3 mmHg Great Vessels Inferior Vena Cava IVC ostium 1.42 cm Doppler Measurements - Mitral Valve Stenosis MV pk E jesse 1.34 m/s MV pk A jesse 0.81 m/s E/A ratio 1.65 PISA-MS MV pk E jesse 1.34 m/s Doppler Measurements - Tricuspid Valve Stenosis IVC ostium 1.42 cm Regurgitation TR pk jesse 3.2 m/s TR pk grad 41 mmHg EST RAP 3 mmHg EST RVSP 44 mmHg Vitals Height Weight BSA (Calculated - sq m) BP Pulse 1.676 m (5' 6) 64.9 kg (143 lb 1.3 oz) 1.73 m2 133/64 81 Performing Staff Oliver Saldana RDCS Study Details A limited echocardiography study (including color flow Doppler and limited spectral Doppler) was performed. Imaging system used: Software [employer]. Indications Indications for study: abnormal ecg. Exam Details Performed Procedure Technologist Supporting Staff Performing Physician [place] ECHOCARDIOGRAM LIMITED/FOLLOWUP W/O 3D Oliver Saldana RDCS Appointment Date/Status Modality Department 11/18/2023 Arrived ECHO TESTING, [facility] ECHOCARDIOGRAPHY ROSS Begin Exam End Exam 11/18/2023 9:02 AM 11/18/2023 10:18 AM Signed at 1041 EDT External Results Report There is an external results report available. Patient Release Status: This result is viewable by the patient in [facility] ECHOCARDIOGRAM LIMITED/FOLLOWUP: Patient Communication Released Not seen ABN Associated with this Order There is no ABN associated with this order. Normal [facility] EXTRA MINT GREEN TOPon 11-17 [facility] GLUCOSE POCon 11-18-2023 Glucose [Mass/Vol] 297 mg/dL High 70 - 99 mg/dL [facility] Interpretation and review of laboratory results Abnormal [facility] POC Sample Type CAPBL [facility] Glucose [Mass/Vol] 252 mg/dL High 70 - 99 mg/dL [facility] Interpretation and review of laboratory results Abnormal [facility] POC Sample Type [facility] Glucose [Mass/Vol] 210 mg/dL High 70 - 99 mg/dL [facility] Interpretation and review of laboratory results Abnormal [facility] POC Sample Type CAPBL [facility] HIGH SENSITIVITY TROPONIN I - SINGLE ORDEROrdered By: Lorenzo Mcdaniel on 11-18-2023 Interpretation and review of laboratory results Abnormal [facility] Troponin I.cardiac High sensitivity method [Mass/Vol] 3685 ng/L Critically high NINF - 53 ng/L [facility] HIGH SENSITIVITY TROPONIN I - SINGLE ORDERon 11-18-2023 hs-Troponin I 3685 ng/L Critically high <53 [facility] Comment on above: Order Comment: Use a shady, foam, polyester, or flocked swab to collect a nasal or nasopharyngeal specimen. After collection, place in a clean, plastic screw cap vial, cap tightly and label with patient information. Transport double bagged in biohazard bag at room temperature. Must be received within 60 minutes of collection. Collection must be done while wearing N-95 mask, eye protection, gown, and gloves. Result Comment: Sugg estive of myocardial injury Performed By: #### L [id number] #### [facility] (DEFAULT) [address] [place] [address] hs-Troponin I 2606 ng/L High <53 [facility] Comment on above: Order Comment: Acute Coronary Syndrome (ACS): Initial Evaluation and Management: [email or web address] te%[email or web address].[email or web address] Result Comment: Sugg estive of myocardial injury Performed By: #### L [email or web address] #### [facility] (DEFAULT) [address] [place] [address] hs-Troponin I 2276 ng/L High <53 [facility] Comment on above: Order Comment: For i ndwelling catheters, specimen collection is acceptable on catheter day 1 and 2 only. ? Result Comment: Sugg estive of myocardial injury Performed By: #### U [id number] #### [facility] (DEFAULT) [address] [place] [address] hs-Troponin I 96 ng/L High <53 [facility] Comment on above: Order Comment: Use a shady, foam, polyester, or flocked swab to collect a nasal or nasopharyngeal specimen. After collection, place in a clean, plastic screw cap vial, cap tightly and label with patient information. Transport double bagged in biohazard bag at room temperature. Must be received within 60 minutes of collection. Collection must be done while wearing N-95 mask, eye protection, gown, and gloves. Performed By: #### L [email or web address] #### [facility] (DEFAULT) [address] [place] [address] hs-Troponin I 59 ng/L High <53 [facility] Comment on above: Order Comment: Acute Coronary Syndrome (ACS): Initial Evaluation and Management:[email or web address] [email or web address]%20Syndrome.[email or web address]=[email or web address] Performed By: #### T YPEC #### [facility] (DEFAULT) [address] [place] [address] HIGH SENSITIVITY TROPONIN I - SINGLE ORDEROrdered By: Brian Bullard on 11-18-2023 Interpretation and review of laboratory results Abnormal [facility] Troponin I.cardiac High sensitivity method [Mass/Vol] 2606 ng/L High NINF - 53 ng/L [facility] HIGH SENSITIVITY TROPONIN I - SINGLE ORDEROrdered By: Katelin Steel on 11-18-2023 Interpretation and review of laboratory results Abnormal [facility] Troponin I.cardiac High sensitivity method [Mass/Vol] 2276 ng/L High NINF - 53 ng/L [facility] HIGH SENSITIVITY TROPONIN I - SINGLE ORDEROrdered By: Flash Barnes on 11-18-2023 Interpretation and review of laboratory results Abnormal [facility] Troponin I.cardiac High sensitivity method [Mass/Vol] 96 ng/L High NINF - 53 ng/L [facility] HIGH SENSITIVITY TROPONIN I - SINGLE ORDEROrdered By: Jayant Reyes on 11-18-2023 Interpretation and review of laboratory results Abnormal [facility] Troponin I.cardiac High sensitivity method [Mass/Vol] 59 ng/L High NINF - 53 ng/L [facility] MAGNESIUMon 11-18-2023 Magnesium [Mass/Vol] 1.8 mg/dL 1.6 - 2 .6 mg/dL [facility] Magnesium [Mass/Vol] 1.8 mg/dL Normal 1.6-2.6 [facility] Comment on above: Performed By: #### C A, MGO, IPB, CHM7 ####[facility] (DEFAULT)[address] [place] [address] No Panel Informationon 11-17 Interpretation and review of laboratory results Abnormal [facility] Interpretation and review of laboratory results Normal [facility] PHOSPHATE, INORGANICon 11-17 Phosphate [Mass/Vol] 3.2 mg/dL 2.2 - 4 .6 mg/dL [facility] Phosphorous 3.2 mg/dL Normal 2.2-4.6 [facility] Comment on above: Performed By: #### C A, MGO, IPB, CHM7 ####[facility] (DEFAULT)[address] [place] [address] PLATELET COUNTon 11-18-2023 Interpretation and review of laboratory results Normal [facility] Platelet mean volume (Bld) [Entitic vol] 10.8 fL 8.7 - 12.3 fL [facility] Platelets (Bld) [#/Vol] 200 10*3/uL 146 - 337 K[facility]L [facility] Platelet mean volume (Bld) [Entitic vol] 10.8 fL Normal 8.7-12.3 [facility] Comment on above: Performed By: #### T YPEC #### [facility] (DEFAULT) [address] [place] [address] Platelets (Bld) [#/Vol] 200 10*3/uL Normal 146-337 [facility] Comment on above: Performed By: #### T YPEC #### [facility] (DEFAULT) [address] [place] [address] PTTon 11-18-2023 aPTT Coag (PPP) [Time] 81.5 s High [facility] Interpretation and review of laboratory results Abnormal [facility] aPTT Coag (Bld) [Time] 81.5 s High 24.0-34.3 [facility] Comment on above: Order Comment: After initiation a PTT should be checked every 6 hours from time of last dose change or, if dose has not changed, 6 hours after last PTT result posted.? The frequent monitoring should occur until PTT in goal range for two consecutive lab draws without dose changes at which time PTTs may be checked no less frequently than every 12 hours.? If dose requires a change, PTT should be monitored at least every 6 hours until titration is no longer indicated, then as directed above.? If PTT above goal range refer to medication administration instructions. Performed By: #### G ASVL #### [facility] (DEFAULT) [address] [place] [address] aPTT Coag (PPP) [Time] 87.6 s High [facility] Interpretation and review of laboratory results Abnormal [facility] aPTT Coag (Bld) [Time] 87.6 s High 24.0-34.3 [facility] Comment on above: Order Comment: After initiation a PTT should be checked every 6 hours from time of last dose change or, if dose has not changed, 6 hours after last PTT result posted.? The frequent monitoring should occur until PTT in goal range for two consecutive lab draws without dose changes at which time PTTs may be checked no less frequently than every 12 hours.? If dose requires a change, PTT should be monitored at least every 6 hours until titration is no longer indicated, then as directed above.? If PTT above goal range refer to medication administration instructions. Result Comment: Resu lts inconsistent with previous results Performed By: #### P TT ####[facility] (DEFAULT)[address] [address] aPTT Coag (Bld) [Time] 32.7 s Normal 24.0-34.3 [facility] Comment on above: Order Comment: Draw prior to initiation of intravenous Heparin. Result Comment: Resu lts inconsistent with previous results Performed By: #### T YPEC #### [facility] (DEFAULT) [address] [place] [address] PTTOrdered By: Lynda Walters on 11-18-2023 aPTT Coag (PPP) [Time] 32.7 s [facility] Interpretation and review of laboratory results Normal [facility] Portable XR Chest Viewson Radiology Study observation (narrative) [facility] Radiology Study observation (narrative) [facility] Radiology Study observation (narrative) [facility] Portable XR Chest ViewsOrder ed By: Pankaj Samaniego on 11-18-2023 [facility] Work Phone: SARS-COV-2 RAPIDon 4 SARS-CoV-2 (COVID-19) RNA ROBIN+probe Ql (Unsp spec) Not detected Normal NOT DETECTED [facility] Comment on above: Order Comment: Use a shady, foam, polyester, or flocked swab to collect a nasal or nasopharyngeal specimen. After collection, place in a clean, plastic screw cap vial, cap tightly and label with patient information. Transport double bagged in biohazard bag at room temperature. Must be received within 60 minutes of collection. Collection must be done while wearing N-95 mask, eye protection, gown, and gloves. Result Comment: [facility] Negative results do not preclude SARS-CoV-2 infection and should not be used as the sole basis for treatment or other patient management decisions. Optimum specimen types and timing for peak viral levels during infections caused by SARS-CoV-2 has not been determined. The possibility of a false negative result should especially be considered if the patient's recent exposures or clinical presentation suggest that SARS-CoV-2 infection is probable, and diagnostic tests for other causes of illness (e.g., other respiratory illness) are negative. Collection of a new specimen and re-testing may be necessary if the patient is critically ill or clinically deteriorating. This test was performed using isothermal nucleic acid amplification technology for the qualitative detection of SARS-CoV-2 nucleic acid. Performed By: #### L [email or web address] #### [facility] (DEFAULT) [address] [place] [address] SARS-CoV-2 (COVID-19) RNA NA A+probe Ql (Unsp spec)Ordered By: Jane Becerril on 11-18-2023 Interpretation and review of laboratory results Normal [facility] SARS-CoV-2 (COVID-19) RdRp gene ROBIN+probe Ql (Resp) Not detected NOT DETECTED [facility] US Heart limitedon 4 Avg e' pk jesse 0.09 m/s [facility] Avg E/e' ratio 15.16 [facility] Body surface area Derived from formula 1.73 m2 [facility] BP EF 55 % [facility] E wave decelartion time 200.[address] [facility] [facility] e' lateral pk jesse 0.1176 m/s [facility] e' lateral pk jesse 0.12 m/s [facility] e' septal pk jesse 0.0708 m/s [facility] Center e' septal pk jesse 0.07 m/s [facility] E/A ratio 1.65 [facility] E/e' lateral ratio 11.39 [facility] E/e' septal ratio 18.93 [facility] EF SP 2CH 56 [facility] EF SP 4CH 57 [facility] EST RAP 3.00 mmHg [facility] EST RVSP 44 mmHg [facility] IVC ostium 1.42 cm [facility] LV EDV BP 75 mL [facility] LV EDV SP 2CH 84 mL [facility] LV EDV SP 4CH 67 mL [facility] LV ESV BP 34 mL [facility] LV ESV SP 2CH 37 mL [facility] LV ESV SP 4CH 29 mL [facility] LV stroke volume BP (ml) 41 mL [facility] LV stroke volume index BP 23.70 mL/m2 [facility] MV pk A jesse 0.81 m/s [facility] MV pk E jesse 1.34 m/s [facility] LV BIPLANE SYSTOLIC VOLUME INDEX 19.65 mL/m2 [facility] BP DIASTOLIC VOLUME INDEX 43.35 mL/m2 [facility] RV Area diastolic 13.28 cm2 [facility] RV Area systolic 8.35 cm2 [facility] RV basal diam 2.81 cm [facility] RV Fractional area change 37.1 % [facility] RV long diam 7.37 cm [facility] RV mid diam 1.68 cm [facility] RV S' 8.15 cm/s [facility] TAPSE 0.92 cm [facility] TR pk grad 41 mmHg [facility] TR pk jesse 3.20 m/s [facility] UMOUT [facility] Radiology Study observation (narrative) [facility] VENOUS BLOOD GAS PLUS LACTAT Surjit 11-18-2023 Base excess Calc (Bld) [Moles/Vol] 4.0 mmol/L High -3.0 - 3.0 mmol/L [facility] CO2 (Bld) [Partial pressure] 44 mm[Hg] [facility] HCO3 (Bld) [Moles/Vol] 29 mmol/L 22 - 29 mmol/L [facility] Interpretation and review of laboratory results Abnormal [facility] Lactate [Moles/Vol] 2.0 mmol/L High 0.5 - 1. 6 mmol/L [facility] Oxygen (Bld) [Partial pressure] 48 mm[Hg] mm Hg [facility] Oxygen saturation in Blood 79 % 70 - 80 % [facility] pH (Bld) 7.42 [pH] 7.32 - 7.43 [facility] Specimen source Nom (Unsp spec) Venous [facility] Base Excess 4.0 mmol/L High -3.0-3.0 [facility] Comment on above: Performed By: #### T YPEC #### [facility] (DEFAULT) [address] [address] HCO3 (Bld) [Moles/Vol] 29 mmol/L Normal 22-29 [facility] Comment on above: Performed By: #### T YPEC #### [facility] (DEFAULT) [address] [address] Lactate, Whole Blood 2.0 mmol/L High 0.5-1.6 [facility] Comment on above: Result Comment: Lact ate results >/= 2.0 mmol/L should be followed up with a measurement 4 hours later for patients with suspicion of sepsis. Performed By: #### T YPEC #### [facility] (DEFAULT) [address] [place] [address] Oxygen saturation in Blood 79 % Normal 70-80 [facility] Comment on above: Performed By: #### T YPEC #### [facility] (DEFAULT) [address] [place] [address] pCO2, Venous 44 mm Hg Normal 36-52 [facility] Comment on above: Performed By: #### T YPEC #### [facility] (DEFAULT) [address] [place] [address] pH, Venous 7.42 Normal 7.32-7.43 [facility] Comment on above: Performed By: #### T YPEC #### [facility] (DEFAULT) [address] [place] [address] pO2, Venous 48 mm Hg Normal [facility] Comment on above: Result Comment: Veno us pO2 is not recommended for the evaluation of oxygen status, clinical correlation is recommended. Performed By: #### T YPEC #### [facility] (DEFAULT) [address] [place] [address] Specimen type Nom (Spec) Venous Normal [facility] Comment on above: Performed By: #### T YPEC #### [facility] (DEFAULT) [address] [place] [address] Base excess Calc (Bld) [Moles/Vol] 0.6 mmol/L -3.0 - 3.0 mmol/L [facility] CO2 (Bld) [Partial pressure] 46 mm[Hg] [facility] HCO3 (Bld) [Moles/Vol] 26 mmol/L 22 - 29 mmol/L [facility] Interpretation and review of laboratory results Abnormal [facility] Lactate [Moles/Vol] 2.2 mmol/L High 0.5 - 1. 6 mmol/L [facility] Oxygen (Bld) [Partial pressure] 45 mm[Hg] mm Hg [facility] Oxygen saturation in Blood 73 % 70 - 80 % [facility] pH (Bld) 7.36 [pH] 7.32 - 7.43 [facility] Specimen source Nom (Unsp spec) Venous [facility] Base Excess 0.6 mmol/L Normal -3.0-3.0 [facility] Comment on above: Performed By: #### T YPEC #### [facility] (DEFAULT) [address] [place] [address] HCO3 (Bld) [Moles/Vol] 26 mmol/L Normal 22-29 [facility] Comment on above: Performed By: #### T YPEC #### [facility] (DEFAULT) [address] [address] Lactate, Whole Blood 2.2 mmol/L High 0.5-1.6 [facility] Comment on above: Result Comment: Lact ate results >/= 2.0 mmol/L should be followed up with a measurement 4 hours later for patients with suspicion of sepsis. Performed By: #### T YPEC #### [facility] (DEFAULT) [address] [place] [address] Oxygen saturation in Blood 73 % Normal 70-80 [facility] Comment on above: Performed By: #### T YPEC #### [facility] (DEFAULT) [address] [place] [address] pCO2, Venous 46 mm Hg Normal 36-52 [facility] Comment on above: Performed By: #### T YPEC #### [facility] (DEFAULT) [address] [place] [address] pH, Venous 7.36 Normal 7.32-7.43 [facility] Comment on above: Performed By: #### T YPEC #### [facility] (DEFAULT) [address] [address] pO2, Venous 45 mm Hg Normal [facility] Comment on above: Result Comment: Veno us pO2 is not recommended for the evaluation of oxygen status, clinical correlation is recommended. Performed By: #### T YPEC #### [facility] (DEFAULT) [address] [place] [address] Specimen type Nom (Spec) Venous Normal [facility] Comment on above: Performed By: #### T YPEC #### [facility] (DEFAULT) [address] [place] [address] XR CHEST 1 VIEW PORTABLEon 0 11-18-2023 XR CHEST 1 VIEW PORTABLE EXAM: XR CHEST 1 VIEW PORTABLE, 11/18/2023 06:24 AM CLINICAL INDICATIONS: Eval lung campbell RELEVANT CLINICAL HISTORY: COMPARISON: Compared to the study performed earlier the same day at 1:53 AM FINDINGS: Unchanged midline sternal wires and surgical clips. No pneumothorax. Hydrostatic interstitial pulmonary edema, similar to the previous study. Minimal bibasilar volume loss. Prominent heart. Degenerative change of the thoracic spine. Old healed right humeral fracture. IMPRESSION: Unchanged interstitial pulmonary edema. Normal [facility] XR CHEST 1 VIEW PORTABLE EXAM: XR CHEST 1 VIEW PORTABLE, 11/18/2023 01:57 AM CLINICAL INDICATIONS: new oxygen needs RELEVANT CLINICAL HISTORY: COMPARISON: November 12, 2023 FINDINGS: Unchanged midline sternal wires. No pneumothorax. New hydrostatic interstitial pulmonary edema. Preserved lung volumes. Degenerative changes in the spine. Unchanged deformity of the proximal left humerus. IMPRESSION: New interstitial pulmonary edema. Normal [facility] CALCIUMon 11-17-2023 Calcium [Mass/Vol] 8.1 mg/dL Low 8.6 - 10. 5 mg/dL [facility] Calcium [Mass/Vol] 8.1 mg/dL Low 8.6-10.5 [facility] Comment on above: Performed By: #### L [email or web address] #### [facility] (DEFAULT) [address] [address] CBC,PLATELETSon 11-17-2023 Erythrocyte distribution width (RBC) [Ratio] 14.7 % High 10.9 - 14.3 % [facility] Hematocrit (Bld) [Volume fraction] 33.4 % Low 39.6 - 48.8 % [facility] Hemoglobin (Bld) [Mass/Vol] 10.9 g/dL Low 13.4 - 16.8 g/dL [facility] Interpretation and review of laboratory results Abnormal [facility] MCH (RBC) [Entitic mass] 27.6 pg 26.1 - 33.3 pg [facility] MCHC (RBC) [Mass/Vol] 32.6 g/dL 31.9 - 36.5 g/dL [facility] MCV (RBC) [Entitic vol] 84.6 fL 79.0 - 94.5 fL [facility] Platelet mean volume (Bld) [Entitic vol] 10.4 fL 8.7 - 12.3 fL [facility] Platelets (Bld) [#/Vol] 222 10*3/uL 146 - 337 K/uL [facility] RBC (Bld) [#/Vol] 3.95 10*6/uL Low [facility] WBC (Bld) [#/Vol] 7.19 10*3/uL 3.73 - 10.10 K/uL [facility] Hematocrit (Bld) [Volume fraction] 33.4 % Low 39.6-48.8 [facility] Comment on above: Performed By: #### Bonifacio ARIAS CHM7 #### [facility] (DEFAULT) [address] [address] Hemoglobin (Bld) [Mass/Vol] 10.9 g/dL Low 13.4-16.8 [facility] Comment on above: Performed By: #### Bonifacio ARIAS CHM7 #### [facility] (DEFAULT) [address] [address] MCV (RBC) [Entitic vol] 84.6 fL Normal 79.0-94.5 O [facility] Comment on above: Performed By: #### Bonifacio ARIAS CHM7 #### [facility] (DEFAULT) [address] [address] Mean Cell Hgb 27.6 pg Normal 26.1-33.3 [facility] Comment on above: Performed By: #### Bonifacio ARIAS CHM7 #### [facility] (DEFAULT) [address] [place] [address] Mean Cell Hgb Conc 32.6 g/dL Normal 31.9-36.5 [facility] Comment on above: Performed By: #### Bonifacio ARIAS CHM7 #### [facility] (DEFAULT) [address] [place] [address] Platelet mean volume (Bld) [Entitic vol] 10.4 fL Normal 8.7-12.3 [facility] Comment on above: Performed By: #### Bonifacio ARIAS CHM7 #### [facility] (DEFAULT) [address] [place] [address] Platelets (Bld) [#/Vol] 222 10*3/uL Normal 146-337 [facility] Comment on above: Performed By: #### Bonifacio ARIAS CHM7 #### [facility] (DEFAULT) [address] [place] [address] RBC (Bld) [#/Vol] 3.95 10*6/uL Low 4.38-5.83 [facility] Comment on above: Performed By: #### Bonifacio ARIAS CHM7 #### [facility] (DEFAULT) [address] [place] [address] RBC Distribution 14.7 % High 10.9-14.3 [facility] Comment on above: Performed By: #### Bonifacio ARIAS CHM7 #### [facility] (DEFAULT) [address] [place] [address] WBC (Bld) [#/Vol] 7.19 10*3/uL Normal 3.73-10.10 [facility] Comment on above: Performed By: #### Bonifacio ARIAS CHM7 #### [facility] (DEFAULT) [address] [place] [address] CHEM 7 (LYTES,BUN,CREA,GLUC) on 11-17-2023 Anion gap [Moles/Vol] 15 mmol/L 7 - 17 mmol/L [facility] Chloride [Moles/Vol] 104 mmol/L 98 - 10 8 mmol/L [facility] CO2 [Moles/Vol] 24 mmol/L 21 - 31 mmol/L [facility] Creatinine [Mass/Vol] 0.68 mg/dL Low 0.70 - 1.30 mg/dL [facility] eGFR, CKD-EPI, Male - PINF [facility] Glucose [Mass/Vol] 99 mg/dL 70 - 99 mg/dL [facility] Osmolality Calc [Osmolality] 292 [facility] Potassium [Moles/Vol] 3.9 mmol/L 3.5 - 5.0 mmol/L [facility] Sodium [Moles/Vol] 139 mmol/L 135 - 145 mmol/L [facility] Urea nitrogen [Mass/Vol] 16 mg/dL 7 - 25 mg/dL [facility] Urea nitrogen/Creatinine [Mass ratio] 24 mg/mg [facility] Anion gap [Moles/Vol] 15 mmol/L Normal 7-17 [facility] Comment on above: Performed By: #### L [email or web address] #### [facility] (DEFAULT) [address] [place] [address] Chloride [Moles/Vol] 104 mmol/L Normal 98-108 [facility] Comment on above: Performed By: #### L [email or web address] #### [facility] (DEFAULT) [address] [place] [address] CO2 [Moles/Vol] 24 mmol/L Normal 21-31 [facility] Comment on above: Performed By: #### L [email or web address] #### [facility] (DEFAULT) [address] [place] [address] Creatinine [Mass/Vol] 0.68 mg/dL Low 0.70-1.30 [facility] Comment on above: Performed By: #### L [email or web address] #### [facility] (DEFAULT) [address] [place] [address] eGFR, CKD-EPI, Male > Normal >=60 [facility] Comment on above: Result Comment: Repo rted eGFR is based on the CKD-EPI 1 equation using creatinine, age, and sex. Performed By: #### L [email or web address] #### [facility] (DEFAULT) [address] [place] [address] Glucose [Mass/Vol] 99 mg/dL Normal 70-99 [facility] Comment on above: Performed By: #### L [email or web address] #### [facility] (DEFAULT) [address] [place] [address] Osmolality [Osmolality] 292 mosm/kg Normal 278-305 [facility] Comment on above: Performed By: #### L [email or web address] #### [facility] (DEFAULT) [address] [place] [address] Potassium [Moles/Vol] 3.9 mmol/L Normal 3.5-5.0 [facility] Comment on above: Performed By: #### L [email or web address] #### [facility] (DEFAULT) [address] [place] [address] Sodium [Moles/Vol] 139 mmol/L Normal 135-145 [facility] Comment on above: Performed By: #### L [email or web address] #### [facility] (DEFAULT) [address] [place] [address] Urea nitrogen [Mass/Vol] 16 mg/dL Normal 7-25 [facility] Comment on above: Performed By: #### L [email or web address] #### [facility] (DEFAULT) [address] [place] [address] Urea nitrogen/Creatinine [Mass ratio] 24 mg/mg Normal [facility] Comment on above: Performed By: #### L [email or web address] #### [facility] (DEFAULT) [address] [place] [address] CONTINUOUS CARDIAC MONITORIN [facility] POCon 11-17-2023 Glucose [Mass/Vol] 185 mg/dL High 70 - 99 mg/dL [facility] Interpretation and review of laboratory results Abnormal [facility] POC Sample Type [facility] Glucose [Mass/Vol] 239 mg/dL High 70 - 99 mg/[facility] Interpretation and review of laboratory results Abnormal [facility] POC Sample Type CAPBL [facility] Glucose [Mass/Vol] 135 mg/dL High 70 - 99 mg/dL [facility] Interpretation and review of laboratory results Abnormal [facility] POC Sample Type [facility] Glucose [Mass/Vol] 104 mg/dL High 70 - 99 mg/dL [facility] Interpretation and review of laboratory results Abnormal [facility] POC Sample Type [facility] Glucose [Mass/Vol] 100 mg/dL High 70 - 99 mg/dL [facility] Interpretation and review of laboratory results Abnormal [facility] POC Sample Type CAPBL [facility] MAGNESIUMon 11-17-2023 Magnesium [Mass/Vol] 1.2 mg/dL Low 1.6 - 2 .6 mg/dL [facility] Magnesium [Mass/Vol] 1.2 mg/dL Low 1.6-2.6 [facility] Comment on above: Performed By: #### L [email or web address] #### [facility] (DEFAULT) [address] [place], [place] [id number] No Panel Informationon 11-16 Interpretation and review of laboratory results Abnormal [facility] PHOSPHATE, INORGANICon 11-16 Interpretation and review of laboratory results Normal [facility] Phosphate [Mass/Vol] 4.3 mg/dL 2.2 - 4 .6 mg/dL [facility] Phosphorous 4.3 mg/dL Normal 2.2-4.6 [facility] Comment on above: Performed By: #### U [id number] #### [facility] (DEFAULT) [address] [address] ABORH TYPE RECONFIRMATIONon 11-16-2023 ABO/RH(D) TYPE Negative Normal [facility] Comment on above: Performed By: #### T YPEC #### [facility] (DEFAULT) [address] [place] [address] CBC,PLATELETSon 11-16-2023 Hematocrit (Bld) [Volume fraction] 36.2 % Low 39.6-48.8 [facility] Comment on above: Performed By: #### G ASVL #### [facility] (DEFAULT) [address] [place] [address] Hemoglobin (Bld) [Mass/Vol] 11.7 g/dL Low 13.4-16.8 [facility] Comment on above: Performed By: #### G ASVL #### [facility] (DEFAULT) [address] [address] MCV (RBC) [Entitic vol] 84.6 fL Normal 79.0-94.5 O [facility] Comment on above: Performed By: #### G ASVL #### [facility] (DEFAULT) [address] [place] [address] Mean Cell Hgb 27.3 pg Normal 26.1-33.3 [facility] Comment on above: Performed By: #### G ASVL #### [facility] (DEFAULT) [address] [place] [address] Mean Cell Hgb Conc 32.3 g/dL Normal 31.9-36.5 [facility] Comment on above: Performed By: #### G ASVL #### [facility] (DEFAULT) [address] [place] [address] Platelet mean volume (Bld) [Entitic vol] 10.2 fL Normal 8.7-12.3 [facility] Comment on above: Performed By: #### G ASVL #### [facility] (DEFAULT) [address] [place] [address] Platelets (Bld) [#/Vol] 223 10*3/uL Normal 146-337 [facility] Comment on above: Performed By: #### G ASVL #### [facility] (DEFAULT) [address] [place] [address] RBC (Bld) [#/Vol] 4.28 10*6/uL Low 4.38-5.83 [facility] Comment on above: Performed By: #### G ASVL #### [facility] (DEFAULT) [address] [place] [address] RBC Distribution 14.8 % High 10.9-14.3 [facility] Comment on above: Performed By: #### G ASVL #### [facility] (DEFAULT) [address] [place] [address] WBC (Bld) [#/Vol] 6.11 10*3/uL Normal 3.73-10.10 [facility] Comment on above: Performed By: #### G ASVL #### [facility] (DEFAULT) [address] [place] [address] CHEM 7 (LYTES,BUN,CREA,GLUC) on 11-16-2023 Anion gap [Moles/Vol] 14 mmol/L Normal 7-17 [facility] Comment on above: Performed By: #### T YPEC #### [facility] (DEFAULT) [address] [place] [address] Chloride [Moles/Vol] 102 mmol/L Normal 98-108 [facility] Comment on above: Performed By: #### T YPEC #### [facility] (DEFAULT) [address] [place] [address] CO2 [Moles/Vol] 27 mmol/L Normal 21-31 [facility] Comment on above: Performed By: #### T YPEC #### [facility] (DEFAULT) [address] [place] [address] Creatinine [Mass/Vol] 0.72 mg/dL Normal 0.70-1.30 [facility] Comment on above: Performed By: #### T YPEC #### [facility] (DEFAULT) [address] [place] [address] eGFR, CKD-EPI, Male > Normal >=60 [facility] Comment on above: Result Comment: Repo rted eGFR is based on the CKD-EPI 2020 equation using creatinine, age, and sex. Performed By: #### T YPEC #### [facility] (DEFAULT) [address] [place] [address] Glucose [Mass/Vol] 144 mg/dL High 70-99 [facility] Comment on above: Performed By: #### T YPEC #### [facility] (DEFAULT) [address] [place] [address] Osmolality [Osmolality] 294 mosm/kg Normal 278-305 [facility] Comment on above: Performed By: #### T YPEC #### [facility] (DEFAULT) [address] [place] [address] Potassium [Moles/Vol] 3.5 mmol/L Normal 3.5-5.0 [facility] Comment on above: Performed By: #### T YPEC #### [facility] (DEFAULT) [address] [place] [address] Sodium [Moles/Vol] 139 mmol/L Normal 135-145 [facility] Comment on above: Performed By: #### T YPEC #### [facility] (DEFAULT) [address] [place] [address] Urea nitrogen [Mass/Vol] 16 mg/dL Normal 7-25 [facility] Comment on above: Performed By: #### T YPEC #### [facility] (DEFAULT) [address] [place] [address] Urea nitrogen/Creatinine [Mass ratio] 22 mg/mg Normal [facility] Comment on above: Performed By: #### T YPEC #### [facility] (DEFAULT) [address] [place] [address] PL[facility] P[facility]let P2Y12 Inhibition Test 169 PRU Low 194-418 [facility] Comment on above: Order Comment: Requi res 2 Special Collection Tubes which Must be Obtained from the Laboratory ( and [facility]), Available in CPA or Call [phone] Result Comment: Test results are reported in P2Y12 Reaction Units (PRU). The pre-drug Normal Reference Range is 194 - 418 PRU. PRU measures the extent of platelet aggregation in the presence of P2Y12 inhibitor drugs such as clopidogrel (Plavix), prasugrel (Effient), ticlopidine (Ticlid), and ticagrelor (Brilinta). Patients who have been treated with Glycoprotein IIb/IIIa inhibitors should not be tested until platelet function has recovered. This time period is approximately 14 days after discontinuation of abciximab (ReoPro) and up to 48 hours after discontinuation of eptifibatide (Integrilin) and tirofiban (Aggrastat). Performed By: #### G ASVL #### [facility] (DEFAULT) [address] [address] PREPARE TO TRANSFUSE OR RED BLOOD CELLSon 11-16-2023 ABO/RH(D) TYPE Negative [facility] BLOOD COMPONENT TYPE Red Cells, Leukoreduced [facility] EXPIRATION DATE [id number] [facility] Product ABO/RH(D) Negative [facility] Product ABO/RH(D) NUMBER 600 [facility] PRODUCT CODE [id number] [facility] UNIT NUMBER [id number] [facility] UNIT STATUS released [facility] PT,INR,PTTon 11-16-2023 aPTT Coag (Bld) [Time] 46.4 s High 24.0-34.3 [facility] Comment on above: Performed By: #### BAILEY GOULD #### [facility] (DEFAULT) [address] [place] [address] INR Coag (PPP) [Relative time] 1.0 {INR} Normal 0.9-1.1 [facility] Comment on above: Performed By: #### M YULISA ARIAS7 #### [facility] (DEFAULT) [address] [address] PT Coag (PPP) [Time] 13.5 s Normal 11.9-14.2 [facility] Comment on above: Performed By: #### BAILEY GOULD #### [facility] (DEFAULT) [address] [address] TYPE AND SCREENon 11-16-2023 ABO/RH(D) TYPE Negative Normal [facility] Comment on above: Performed By: #### X M #### [facility] (DEFAULT) [address] [place] [address] CBC,PLATELETSon 11-15-2023 Hematocrit (Bld) [Volume fraction] 35.9 % Low 39.6-48.8 [facility] Comment on above: Performed By: #### T YPEC #### [facility] (DEFAULT) [address] [place] [address] Hemoglobin (Bld) [Mass/Vol] 11.3 g/dL Low 13.4-16.8 [facility] Comment on above: Performed By: #### T YPEC #### [facility] (DEFAULT) [address] [place] [address] MCV (RBC) [Entitic vol] 84.5 fL Normal 79.0-94.5 [facility] Comment on above: Performed By: #### T YPEC #### [facility] (DEFAULT) [address] [address] Mean Cell Hgb 26.6 pg Normal 26.1-33.3 [facility] Comment on above: Performed By: #### T YPEC #### [facility] (DEFAULT) [address] [address] Mean Cell Hgb Conc 31.5 g/dL Low 31.9-36.5 [facility] Comment on above: Performed By: #### T YPEC #### [facility] (DEFAULT) [address] [address] Platelet mean volume (Bld) [Entitic vol] 10.3 fL Normal 8.7-12.3 [facility] Comment on above: Performed By: #### T YPEC #### [facility] (DEFAULT) [address] [address] Platelets (Bld) [#/Vol] 211 10*3/uL Normal 146-337 [facility] [facility] Comment on above: Performed By: #### T YPEC #### [facility] (DEFAULT) [address] [address] RBC (Bld) [#/Vol] 4.25 10*6/uL Low 4.38-5.83 [facility] Comment on above: Performed By: #### T YPEC #### [facility] (DEFAULT) [address] [address] RBC Distribution 14.6 % High 10.9-14.3 [facility] Comment on above: Performed By: #### T YPEC #### [facility] (DEFAULT) [address] [address] WBC (Bld) [#/Vol] 5.80 10*3/uL Normal 3.73-10.10 [facility] Comment on above: Performed By: #### T YPEC #### [facility] (DEFAULT) [address] [place] [address] CHEM 7 (LYTES,BUN,CREA,GLUC) on 11-15-2023 Anion gap [Moles/Vol] 13 mmol/L Normal 7-17 [facility] Comment on above: Performed By: #### G ASVL #### [facility] (DEFAULT) [address] [place] [address]111 Chloride [Moles/Vol] 103 mmol/L Normal 98-108 [facility] Comment on above: Performed By: #### G ASVL #### [facility] (DEFAULT) [address] [place] [address] 43905 CO2 [Moles/Vol] 27 mmol/L Normal 21-31 [facility] Comment on above: Performed By: #### G ASVL #### [facility] (DEFAULT) [address] [place] [address]29 Creatinine [Mass/Vol] 0.74 mg/dL Normal 0.70-1.30 [facility] Comment on above: Performed By: #### G ASVL #### [facility] (DEFAULT) [address] [place] [address] 8[address]80 eGFR, CKD-EPI, Male > Normal >=60 [facility] Comment on above: Result Comment: Repo rted eGFR is based on the CKD-EPI 2020 equation using creatinine, age, and sex. Performed By: #### G ASVL #### [facility] (DEFAULT) [address] [place] [address]9559 Glucose [Mass/Vol] 139 mg/dL High 70-99 [facility] Comment on above: Performed By: #### G ASVL #### [facility] (DEFAULT) [address] [place] [address]605 Osmolality [Osmolality] 295 mosm/kg Normal 278-305 [facility] Comment on above: Performed By: #### G ASVL #### [facility] (DEFAULT) [address] [place] [address] 48053 Potassium [Moles/Vol] 3.5 mmol/L Normal 3.5-5.0 [facility] Comment on above: Performed By: #### G ASVL #### [facility] (DEFAULT) [address] [place] [address] 15004 Sodium [Moles/Vol] 139 mmol/L Normal 135-145 [facility] Comment on above: Performed By: #### G ASVL #### [facility] (DEFAULT) [address] [place] [address] 48106 Urea nitrogen [Mass/Vol] 20 mg/dL Normal 7-25 [facility] Comment on above: Performed By: #### G ASVL #### [facility] (DEFAULT) [address] [place] [address] 57448 Urea nitrogen/Creatinine [Mass ratio] 27 mg/mg Normal [facility] Comment on above: Performed By: #### G ASVL #### [facility] (DEFAULT) [address] [place] [address] CBC,PLATELETSon - Hematocrit (Bld) [Volume fraction] 37.6 % Low 39.6-48.8 [facility] Comment on above: Performed By: #### T YPEC #### [facility] (DEFAULT) [address] [place] [address] Hemoglobin (Bld) [Mass/Vol] 12.0 g/dL Low 13.4-16.8 [facility] Comment on above: Performed By: #### T YPEC #### [facility] (DEFAULT) [address] [place] [address]64[address] MCV (RBC) [Entitic vol] 84.5 fL Normal 79.0-94.5 [facility] Comment on above: Performed By: #### T YPEC #### [facility] (DEFAULT) [address] [place] [address] Mean Cell Hgb 27.0 pg Normal 26.1-33.3 [facility] Comment on above: Performed By: #### T YPEC #### [facility] (DEFAULT) [address] [address] Mean Cell Hgb Conc 31.9 g/dL Normal 31.9-36.5 [facility] Comment on above: Performed By: #### T YPEC #### [facility] (DEFAULT) [address] [address] Platelet mean volume (Bld) [Entitic vol] 10.3 fL Normal 8.7-12.3 [facility] Comment on above: Performed By: #### T YPEC #### [facility] (DEFAULT) [address] [address] Platelets (Bld) [#/Vol] 249 10*3/uL Normal 146-337 [facility] Comment on above: Performed By: #### T YPEC #### [facility] (DEFAULT) [address] [address] RBC (Bld) [#/Vol] 4.45 10*6/uL Normal 4.38-5.83 [facility] Comment on above: Performed By: #### T YPEC #### [facility] (DEFAULT) [address] [address] RBC Distribution 14.6 % High 10.9-14.3 [facility] Comment on above: Performed By: #### T YPEC #### [facility] (DEFAULT) [address] [address] WBC (Bld) [#/Vol] 6.03 10*3/uL Normal 3.73-10.10 [facility] Comment on above: Performed By: #### T YPEC #### [facility] (DEFAULT) [address] [address] CHEM 7 (LYTES,BUN,CREA,GLUC) on 11-14-2023 Anion gap [Moles/Vol] 14 mmol/L Normal 7-17 [facility] Comment on above: Performed By: #### L [id number] #### [facility] (DEFAULT) [address] [place] [address] 15649 Chloride [Moles/Vol] 101 mmol/L Normal 98-108 [facility] Comment on above: Performed By: #### L [id number] #### [facility] (DEFAULT) [address] [place] [address] 81064 CO2 [Moles/Vol] 29 mmol/L Normal 21-31 [facility] Comment on above: Performed By: #### L [id number] #### [facility] (DEFAULT) [address] [place] [address]681 Creatinine [Mass/Vol] 0.86 mg/dL Normal 0.70-1.30 [facility] Comment on above: Performed By: #### L [id number] #### [facility] (DEFAULT) [address] [place] [address]75 eGFR, CKD-EPI, Male > Normal >=60 [facility] Comment on above: Result Comment: Repo rted eGFR is based on the CKD-EPI 2020 equation using creatinine, age, and sex. Performed By: #### L [id number] #### [facility] (DEFAULT) [address] [place] [address] Glucose [Mass/Vol] 176 mg/dL High 70-99 [facility] Comment on above: Performed By: #### L [id number] #### [facility] (DEFAULT) [address] [place] [address]648 Osmolality [Osmolality] 299 mosm/kg Normal 278-305 [facility] Comment on above: Performed By: #### L [id number] #### [facility] (DEFAULT) [address] [place] [address]3695 Potassium [Moles/Vol] 3.7 mmol/L Normal 3.5-5.0 [facility] Comment on above: Performed By: #### L [id number] #### [facility] (DEFAULT) [address] [place] [address] Sodium [Moles/Vol] 140 mmol/L Normal 135-145 [facility] Comment on above: Performed By: #### L [id number] #### [facility] (DEFAULT) [address] [place] [address] Urea nitrogen [Mass/Vol] 18 mg/dL Normal 7-25 [facility] Comment on above: Performed By: #### L [id number] #### [facility] (DEFAULT) [address] [place] [address] 26518 Urea nitrogen/Creatinine [Mass ratio] 21 mg/mg Normal [facility] Comment on above: Performed By: #### L [id number] #### [facility] (DEFAULT) [address] [place] [address] ECHOCARDIOGRAMon 11-14-2023 Echocardiography Left ventricular siz e, regional wall motion and global systolic function are normal. Ejection fraction 58% Left atrium measures normal in size Right ventricle is normal in size and function. Estimated right ventricular/pulmonary artery systolic pressure is within normal limits Right atrium measures normal in size Valve structures are consistent with age. Mitral valve regurgitation, mild Aortic valve regurgitation (probable), trace Further study details described below Table formatting from the original result was not included. Images from the original result were not included. Facility [facility] Patient Information Patient Name Yony Vega Legal Sex Male Indication for Exam Priority: Routine Dx: Cerebrovascular accident (CVA), unspecified mechanism [I63.9 (ICD-10-CM)] Order Question Reason for Exam Stroke Interpretation Summary Left ventricular size, regional wall motion and global systolic function are normal. Ejection fraction 58% Left atrium measures normal in size Right ventricle is normal in size and function. Estimated right ventricular/pulmonary artery systolic pressure is within normal limits Right atrium measures normal in size Valve structures are consistent with age. Mitral valve regurgitation, mild Aortic valve regurgitation (probable), trace Further study details described below Findings Left Ventricle Chamber size is normal. Normal wall thickness. Concentric remodeling is present. Normal global systolic function. Regional wall motion is normal. The ejection fraction is 58%. Ejection fraction by modified Lara's rule is normal. Diastolic function is normal for age. Right Ventricle Chamber size is normal. Normal wall thickness. Segmental wall motion is normal. Systolic function is normal. Fractional area change equals 41.1%. Left Atrium Chamber size is normal. Right Atrium Chamber size is normal. Septum The atrial septum is normal. No evidence of patent foramen ovale determined by color flow. Mitral Valve Mild anterior leaflet calcification. Leaflet mobility is normal. Mild annular calcification. Mild regurgitation. No valve stenosis. Aortic Valve Trileaflet valve. Mild leaflet calcification of all cusps. Leaflet mobility is normal. Trace regurgitation. (Suggested by continuous wave Doppler only) No stenosis. Mean gradient: 4 mmHg. Dimensionless Index by VTI: 0.63. Tricuspid Valve Normal leaflets. Leaflet mobility is normal. Trace regurgitation. No stenosis. No echo/Doppler evidence for pulmonary hypertension. Pulmonic Valve Normal structure. Trace regurgitation. No stenosis. Aorta No dilation to extent seen. SOV: 3.75 cm. STJ: 3.21 cm. Ascendin.52 cm. Arch: 3.11 cm. Arch index: 1.79 cm/m2. Pericardium Appears normal. No pericardial effusion. IVC/SVC Unable to assess inferior vena cava and inferior vena cava not well visualized. Reading Providers Reading Role Read Date Yousif Kolb DO Echo [place] 11/14/2023 Left Heart Measurements LV - Systole LVIDD 4.05 cm IVS 0.89 cm LVIDS 2.81 cm PW 0.99 cm LV RWT 0.49 LV Mass Index 68.3 g/m2 LV EDV BP 64 mL LV ESV BP 27 mL BP EF 58 % LV stroke volume BP (ml) 37 mL LV stroke volume index BP 21.26 mL/m2 LV - Diastole MV pk E jesse 0.89 m/s MV pk A jesse 1.19 m/s E/A ratio 0.75 e' septal pk jesse 0.07 m/s e' lateral pk jesse 0.1 m/s Avg e' pk jesse 0.09 m/s E/e' septal ratio 11.88 E/e' lateral ratio 8.58 Avg E/e' ratio 10.23 LV - HCM AV LVOT peak gradient 3 mmHg Left Atrium LA ESV SP 4CH (MOD) 65 mL LA ESV SP 2CH (MOD) 52 mL LA ESV BP (MOD) index 34 mL/m2 Right Heart Measurements RV - 2D RV basal diam 2.82 cm RV mid diam 1.7 cm RV long diam 7.68 cm RV Area diastolic 10.7 cm2 RV Area systolic 6.3 cm2 RV Fractional area change 41.1 % RV - Doppler TAPSE 1.2 cm RV S' 6.46 cm/s Right Atrium RA vol index 4CH (MOD) 9.2 mL/m2 RA area 4CH (MOD) 9.63 cm2 Great Vessels Aortic Root - End Diastolic Sinus 3.75 cm STJ 3.21 cm Ascending aorta 3.52 cm Aortic arch 3.11 cm Doppler Measurements - Aortic Valve Stenosis LVOT diameter 2.11 cm LVOT area 3.49 cm2 LVOT peak jesse 0.88 m/s LVOT peak VTI 20.21 cm Stroke Volume 71 cm/mL Stroke volume index 41 Ao peak jesse 1.28 m/s Ao VTI 32.16 cm AV peak gradient 7 mmHG AV mean gradient 4 mmHg DI (VTI) 0.63 m/2 DI (Vmax) 0.69 JOYCE (continuity Vmax) 2.4 cm2 JOYCE index (continuity Vmax) 1.38 m/s JOYCE (continuity VTI) 2.2 cm2 JOYCE index (continuity VTI) 1.26 cm2/m2 LVOT stroke volume 71 cm3 LVOT stroke volume index 40.59 ml/m2 Doppler Measurements - Mitral Valve Stenosis MV pk E jesse 0.89 m/s MV pk A jesse 1.19 m (more content not included)... Normal [facility] MAGNESIUMon 11-14-2023 Magnesium [Mass/Vol] 1.7 mg/dL Normal 1.6-2.6 [facility] Comment on above: Performed By: #### L [id number] #### [facility] (DEFAULT) [address] [place] [address] NUC MYOCARD PERF STRESS MIBI PHARMon 11-14-2023 NUC MYOCARD PERF STRESS MIBI PHARM Conclusion Pharmacologic stress test is negative for remote infarction and with no definite evidence for stress induced ischemia. Nuclear perfusion images Resting Images: Normal pattern of perfusion to all segments of the ventricle. No evidence of infarction Post Stress Images: Perfusion pattern post stress shows a mild perfusion defect to a moderate sized segment of the inferior and inferolateral segments which normalizes with attenuation correction suggesting artifact. Clinical correlation, given the heavy coronary calcium load and reduced ejection fraction, with the pre-test probability of disease, are required. Left ventricular systolic function is mildly reduced. (ejection fraction 43%). ECG / stress portion of the exam Baseline ECG: sinus rhythm with anterior t-wave inversion Pharmacologic stress ECG is negative for ischemia at achieved heart rate. Dysrhythmias with stress: None Hemodynamic response to stress (heart rate & blood pressure): Normal Cardiac Symptoms / Reason for stopping test No symptoms to suggest ischemia Study stopped due to completion of protocol CT portion of the scan CT images were obtained for attenuation correction purposes only. Diagnostic quality of the images is limited. Coronary artery calcification: extensive and involving all vessels Table formatting from the original result was not included. Images from the original result were not included. Facility [facility] Patient Information Patient Name Yony Vega Legal Sex Male Indication for Exam Priority: Routine Dyspnea, cardiac arrhythmia suspected, ischemia excluded; Chest pain/anginal equiv, ECGs or troponins abnormal Dx: ELIZALDE (dyspnea on exertion) [R06.09 (ICD-10-CM)]; Chest discomfort [R07.89 (ICD-10-CM)] Interpretation Summary Conclusion Pharmacologic stress test is negative for remote infarction and with no definite evidence for stress induced ischemia. Nuclear perfusion images Resting Images: Normal pattern of perfusion to all segments of the ventricle. No evidence of infarction Post Stress Images: Perfusion pattern post stress shows a mild perfusion defect to a moderate sized segment of the inferior and inferolateral segments which normalizes with attenuation correction suggesting artifact. Clinical correlation, given the heavy coronary calcium load and reduced ejection fraction, with the pre-test probability of disease, are required. Left ventricular systolic function is mildly reduced. (ejection fraction 43%). ECG / stress portion of the exam Baseline ECG: sinus rhythm with anterior t-wave inversion Pharmacologic stress ECG is negative for ischemia at achieved heart rate. Dysrhythmias with stress: None Hemodynamic response to stress (heart rate & blood pressure): Normal Cardiac Symptoms / Reason for stopping test No symptoms to suggest ischemia Study stopped due to completion of protocol CT portion of the scan CT images were obtained for attenuation correction purposes only. Diagnostic quality of the images is limited. Coronary artery calcification: extensive and involving all vessels Stress Findings ECG Baseline ECG is normal with normal sinus rhythm. Baseline ECG shows non-specific ST-T wave abnormalities consistent with T wave inversion. Stress ECG is unchanged from baseline. There was no ST segment deviation noted during stress. There were no arrhythmias during stress. Stress QRS duration is normal (80-100ms). Recovery ECG returned to baseline. There were no arrhythmias during recovery. Negative pharm stress test. Stress Findings A pharmacological stress test was performed using regadenoson. The patient reported nausea and shortness of breath prior to the stress test. 4/10 SOB and 3/10 nausea The patient reported nausea and shortness of breath during the stress test. 6/10 SOB and 6/10 nausea The patient reached the end of the protocol. Reading Providers Reading Role Read Date Yousif Kolb, DO ECG [place], SPECT [place], Test [employer] 11/14/2023 Stress Measurements Baseline Vitals-Supine Baseline HR 63 bpm Baseline SBP 145 mmHg Baseline DBP 73 mmHg Peak Stress Vitals Peak HR 71 bpm Peak SBP 96 mmHg Peak DBP 59 mmHg Rate Pressure Product 6,816 Exercise Data APHRMAX 154 bpm % APHRMAX 46 % Exercise duration (min) 4 min Exercise duration (sec) 0 sec Nuclear Stress Findings Isotope Admin The isotope used for nuclear imaging was technetium sestamibi.No radiopharmaceutical dose was extravasated. Nuclear Stress Gating Stress perfusion cavity size was 62 mL. Resting perfusion cavity size was 64 mL. The stress/rest perfusion ratio is 0.97. There is no evidence of transient ischemic dilation (TID). Ejection fraction is 43.00%. End diastolic index is 43.93 mL/m2. End systolic index is 24.86 mL/m2. Left ventricular cavity size is normal. Lung to heart ratio is norm (more content not included)... Normal [facility] PTTon 11-14-2023 aPTT Coag (Bld) [Time] 42.3 s High 24.0-34.3 [facility] Comment on above: Performed By: #### U [id number] #### [facility] (DEFAULT) [address] [place] [address] aPTT Coag (Bld) [Time] 67.9 s High 24.0-34.3 [facility] Comment on above: Order Comment: Acute Coronary Syndrome (ACS): Initial Evaluation and Management: [email or web address] Performed By: #### L [id number] #### [facility] (DEFAULT) [address] [place] [address] aPTT Coag (Bld) [Time] 82.3 s High 24.0-34.3 [facility] Comment on above: Order Comment: For i ndwelling catheters, specimen collection is acceptable on catheter day 1 and 2 only. ? Result Comment: Resu lts inconsistent with previous results Performed By: #### U [id number] #### [facility] (DEFAULT) [address] [place] [address] CBC,PLATELETSon 11-13-2023 Hematocrit (Bld) [Volume fraction] 38.5 % Low 39.6-48.8 [facility] Comment on above: Performed By: #### P TT #### [facility] (DEFAULT) [address] [place] [address] Hemoglobin (Bld) [Mass/Vol] 12.4 g/dL Low 13.4-16.8 [facility] Comment on above: Performed By: #### P TT #### [facility] (DEFAULT) [address] [place] [address] 23294 MCV (RBC) [Entitic vol] 84.8 fL Normal 79.0-94.5 [facility] Comment on above: Performed By: #### P TT #### [facility] (DEFAULT) [address] [address] Mean Cell Hgb 27.3 pg Normal 26.1-33.3 [facility] Comment on above: Performed By: #### P TT #### [facility] (DEFAULT) [address] [place] [address]674 Mean Cell Hgb Conc 32.2 g/dL Normal 31.9-36.5 [facility] Comment on above: Performed By: #### P TT #### [facility] (DEFAULT) [address] [address] Platelet mean volume (Bld) [Entitic vol] 10.1 fL Normal 8.7-12.3 [facility] Comment on above: Performed By: #### P TT #### [facility] (DEFAULT) [address] [address] Platelets (Bld) [#/Vol] 221 10*3/uL Normal 146-337 [facility] Comment on above: Performed By: #### P TT #### [facility] (DEFAULT) [address] [address] RBC (Bld) [#/Vol] 4.54 10*6/uL Normal 4.38-5.83 [facility] Comment on above: Performed By: #### P TT #### [facility] (DEFAULT) [address] [address] RBC Distribution 14.6 % High 10.9-14.3 [facility] Comment on above: Performed By: #### P TT #### [facility] (DEFAULT) [address] [address] WBC (Bld) [#/Vol] 4.84 10*3/uL Normal 3.73-10.10 [facility] Comment on above: Performed By: #### P TT #### [facility] (DEFAULT) [address] [address] Hematocrit (Bld) [Volume fraction] 37.7 % Low 39.6-48.8 [facility] Comment on above: Performed By: #### P TT #### [facility] (DEFAULT) [address] [address] Hemoglobin (Bld) [Mass/Vol] 12.3 g/dL Low 13.4-16.8 [facility] Comment on above: Performed By: #### P TT #### [facility] (DEFAULT) [address] [address] MCV (RBC) [Entitic vol] 83.6 fL Normal 79.0-94.5 [facility] Comment on above: Performed By: #### P TT #### [facility] (DEFAULT) [address] [place] [address] Mean Cell Hgb 27.3 pg Normal 26.1-33.3 [facility] Comment on above: Performed By: #### P TT #### [facility] (DEFAULT) [address] [address] Mean Cell Hgb Conc 32.6 g/dL Normal 31.9-36.5 [facility] Comment on above: Performed By: #### P TT #### [facility] (DEFAULT) [address] [address] Platelet mean volume (Bld) [Entitic vol] 9.8 fL Normal 8.7-12.3 [facility] Comment on above: Performed By: #### P TT #### [facility] (DEFAULT) [address] [address] Platelets (Bld) [#/Vol] 253 10*3/uL Normal 146-337 [facility] Comment on above: Performed By: #### P TT #### [facility] (DEFAULT) [address] [address] RBC (Bld) [#/Vol] 4.51 10*6/uL Normal 4.38-5.83 [facility] Comment on above: Performed By: #### P TT #### [facility] (DEFAULT) [address] [address] RBC Distribution 14.7 % High 10.9-14.3 [facility] Comment on above: Performed By: #### P TT #### [facility] (DEFAULT) [address] [address] WBC (Bld) [#/Vol] 5.38 10*3/uL Normal 3.73-10.10 [facility] Comment on above: Performed By: #### P TT #### [facility] (DEFAULT) [address] [place] [address] CHEM 7 (LYTES,BUN,CREA,GLUC) on 11-13-2023 Anion gap [Moles/Vol] 14 mmol/L Normal 7-17 [facility] Comment on above: Performed By: #### U [id number] #### [facility] (DEFAULT) [address] [place] [address]763 Chloride [Moles/Vol] 100 mmol/L Normal 98-108 [facility] Comment on above: Performed By: #### U [id number] #### [facility] (DEFAULT) [address] [place] [address] 47632 CO2 [Moles/Vol] 30 mmol/L Normal 21-31 [facility] Comment on above: Performed By: #### U [id number] #### [facility] (DEFAULT) [address] [place] [address] 85869 Creatinine [Mass/Vol] 0.76 mg/dL Normal 0.70-1.30 [facility] Comment on above: Performed By: #### U [id number] #### [facility] (DEFAULT) [address] [place] [address]43 eGFR, CKD-EPI, Male > Normal >=60 [facility] Comment on above: Result Comment: Repo rted eGFR is based on the CKD-EPI 2020 equation using creatinine, age, and sex. Performed By: #### U [id number] #### [facility] (DEFAULT) [address] [place] [address] Glucose [Mass/Vol] 215 mg/dL High 70-99 [facility] Comment on above: Performed By: #### U [id number] #### [facility] (DEFAULT) [address] [place] [address] Osmolality [Osmolality] 301 mosm/kg Normal 278-305 [facility] Comment on above: Performed By: #### U [id number] #### [facility] (DEFAULT) [address] [place] [address] 368[address] Potassium [Moles/Vol] 3.6 mmol/L Normal 3.5-5.0 [facility] Comment on above: Performed By: #### U [id number] #### [facility] (DEFAULT) [address] [place] [address] Sodium [Moles/Vol] 140 mmol/L Normal 135-145 [facility] Comment on above: Performed By: #### U [id number] #### [facility] (DEFAULT) [address] [place] [address] Urea nitrogen [Mass/Vol] 16 mg/dL Normal 7-25 [facility] Comment on above: Performed By: #### U [id number] #### [facility] [facility] (DEFAULT) [address] [place] [address] 91369 Urea nitrogen/Creatinine [Mass ratio] 21 mg/mg Normal [facility] Comment on above: Performed By: #### U [id number] #### U [facility] (DEFAULT) [address] [place] [address] 30534 HEMOGLOBIN A1Con 11-13-2023 Glucose [Mass/Vol] 177 mg/dL Normal [facility] Comment on above: Performed By: #### L [id number] #### U [facility] (DEFAULT) [address] [place] [address] 58290 Hemoglobin A1C HPLC 7.8 % High 4.7-5.6 [facility] Comment on above: Performed By: #### L [id number] #### U [facility] (DEFAULT) [address] [place] [address] 28296 HEPATIC FUNCTION PANELon Albumin [Mass/Vol] 3.8 g/dL Normal 3.5-5.0 [facility] Comment on above: Performed By: #### U [id number] #### U [facility] (DEFAULT) [address] [place] [address] 74644 ALP [Catalytic activity/Vol] 76 U/L Normal 32-126 [facility] Comment on above: Performed By: #### U [id number] #### U [facility] (DEFAULT) [address] [place] [address] 78481 ALT [Catalytic activity/Vol] 18 U/L Normal 10-52 [facility] Comment on above: Performed By: #### U [id number] #### [facility] (DEFAULT) [address] [place] [address] 53269 AST [Catalytic activity/Vol] 26 U/L Normal 10-39 [facility] Comment on above: Performed By: #### U [id number] #### [facility] (DEFAULT) [address] [place] [address] 82354 Bilirubin [Mass/Vol] 0.3 mg/dL Normal <1.5 [facility] Comment on above: Performed By: #### U [id number] #### [facility] (DEFAULT) [address] [address] Bilirubin.indirect [Mass/Vol] 0.1 mg/dL Normal <0.3 [facility] Comment on above: Performed By: #### U [id number] #### [facility] (DEFAULT) [address] [address] Protein [Mass/Vol] 6.8 g/dL Normal 6.4-8.3 [facility] Comment on above: Performed By: #### U [id number] #### U [facility] (DEFAULT) [address] [address] LIPID PANEL WITH REFLEX TO M EASURED LDLon 11-13-2023 Calculated LDL Cholesterol 65 mg/dL Normal 0-99 [facility] Comment on above: Result Comment: [<10 0 mg/dL: Optimal] [100-129 mg/dL: Near Optimal] [130-159 mg/dL: Borderline High] [160-189 mg/dL: High] [>189 mg/dL: Very High] Performed By: #### U [id number] #### [facility] (DEFAULT) [address] [place] [address] 56398 Cholesterol [Mass/Vol] 150 mg/dL Normal <200 [facility] Comment on above: Result Comment: [<20 0 mg/dL: Desirable] [200-239 mg/dL: Borderline High] [>239 mg/dL: High] Performed By: #### U [id number] #### U [facility] (DEFAULT) [address] [place] [address] 24258 Cholesterol in HDL [Mass/Vol] 29 mg/dL Low >=40 [facility] Comment on above: Result Comment: [<40 mg/dL: Low (High Risk)] [>59 mg/dL: High (Low Risk)] Performed By: #### U [id number] #### [facility] (DEFAULT) [address] [place] [address] 90612 Non HDL Cholesterol 121 mg/dL Normal <130 [facility] Comment on above: Performed By: #### U [id number] #### [facility] (DEFAULT) [address] [address] Total Cholesterol/HDL Ratio 5.2 High <4.5 [facility] Comment on above: Performed By: #### U [id number] #### [facility] (DEFAULT) [address] [address] Triglyceride [Mass/Vol] 279 mg/dL High <150 O [facility] Comment on above: Result Comment: [<15 0 mg/dL: Desirable] [150-199 mg/dL: Borderline] [200-499 mg/dL: High] [>500 mg/dL: Very High] Performed By: #### U [id number] #### [facility] (DEFAULT) [address] [address] PTTon 11-13-2023 aPTT Coag (Bld) [Time] 30.2 s Normal 24.0-34.3 [facility] Comment on above: Order Comment: Draw prior to initiation of intravenous Heparin. Performed By: #### T YPEC #### [facility] (DEFAULT) [address] [address] C REACTIVE PROTEINon 024 CRP [Mass/Vol] 7.90 mg/L Normal <10.00 [facility] Comment on above: Performed By: #### L ABHSTI1 #### U [facility] (DEFAULT) [address] [address] CRP [Mass/Vol] 6.55 mg/L Normal <10.00 [facility] Comment on above: Performed By: #### Bonifacio ARIAS CHM7 #### [facility] (DEFAULT) [address] [address] CBC AND ELECTRONIC DIFFon Abs Baso Auto < Normal 0.00-0.09 [facility] Comment on above: Performed By: #### Bonifaico ARIAS CHM7 #### [facility] (DEFAULT) [address] [address] Basophils/100 WBC (Bld) 0.3 % Normal [facility] Comment on above: Performed By: #### Bonifacio ARIAS CHM7 #### [facility] (DEFAULT) [address] [address] DIFF STATUS Electronic Differential Normal [facility] Comment on above: Performed By: #### Bonifacio ARIAS CHM7 #### [facility] (DEFAULT) [address] [address] Eosinophils (Bld) [#/Vol] 0.07 10*3/uL Normal 0.00-0.48 [facility] Comment on above: Performed By: #### Bonifacio ARIAS, CHM7 #### [facility] (DEFAULT) [address] [address] Eosinophils/100 WBC (Bld) 1.1 % Normal [facility] Comment on above: Performed By: #### Bonifacio ARIAS CHM7 #### [facility] (DEFAULT) [address] [address] Hematocrit (Bld) [Volume fraction] 41.6 % Normal 39.6-48.8 [facility] Comment on above: Performed By: #### Bonifacio ARIAS CHM7 #### [facility] (DEFAULT) [address] [address] Hemoglobin (Bld) [Mass/Vol] 13.4 g/dL Normal 13.4-16.8 [facility] Comment on above: Performed By: #### YULISA GOULD7 #### [facility] (DEFAULT) [address] [address] Immature Grans % 0.2 % Normal [facility] Comment on above: Performed By: #### YULISA GOULD7 #### [facility] (DEFAULT) [address] [address] Immature Grans Absolute < Normal <=0.07 [facility] Comment on above: Performed By: #### Bonifacio ARIAS CHM7 #### [facility] (DEFAULT) [address] [address] Lymphocytes (Bld) [#/Vol] 1.29 10*3/uL Normal 0.83-3.57 [facility] Comment on above: Performed By: #### Bonifacio ARIAS CHM7 #### [facility] (DEFAULT) [address] [address] Lymphocytes/100 WBC (Bld) 20.7 % Normal [facility] Comment on above: Performed By: #### Bonifacio ARIAS CHM7 #### [facility] (DEFAULT) [address] [address] MCV (RBC) [Entitic vol] 84.2 fL Normal 79.0-94.5 [facility] Comment on above: Performed By: #### M GO, CHM7 #### U [facility] (DEFAULT) [address] [place] [address] 92580 Mean Cell Hgb 27.1 pg Normal 26.1-33.3 [facility] Comment on above: Performed By: #### Bonifacio ARIAS CHM7 #### [facility] (DEFAULT) [address] [place] [address] 04848 Mean Cell Hgb Conc 32.2 g/dL Normal 31.9-36.5 [facility] Comment on above: Performed By: #### Bonifacio ARIAS CHM7 #### U [facility] (DEFAULT) [address] [place] [address] 71900 Monocytes (Bld) [#/Vol] 0.70 10*3/uL Normal 0.24-0.93 [facility] Comment on above: Performed By: #### YULISA GOULD7 #### [facility] (DEFAULT) [address] [place] [address] 36588 Monocytes/100 WBC (Bld) 11.2 % Normal [facility] Comment on above: Performed By: #### YULISA GOULD7 #### [facility] (DEFAULT) [address] [place] [address] 82889 Nucleated RBC 0.0 /100 WBC Normal <=0.2 [facility] Comment on above: Performed By: #### Bonifacio ARIAS CHM7 #### [facility] (DEFAULT) [address] [place] [address] 03817 Platelet mean volume (Bld) [Entitic vol] 9.7 fL Normal 8.7-12.3 [facility] Comment on above: Performed By: #### Bonifacio ARIAS CHM7 #### [facility] (DEFAULT) [address] [place] [address] 52146 Platelets (Bld) [#/Vol] 265 10*3/uL Normal 146-337 [facility] Comment on above: Performed By: #### Bonifacio ARIAS CHM7 #### [facility] (DEFAULT) [address] [place] [address] 09724 RBC (Bld) [#/Vol] 4.94 10*6/uL Normal 4.38-5.83 [facility] Comment on above: Performed By: #### M SANDRA CHM7 #### U [facility] (DEFAULT) [address] [place] [address] 46759 RBC Distribution 14.7 % High 10.9-14.3 [facility] Comment on above: Performed By: #### Bonifacio ARIAS CHM7 #### U [facility] (DEFAULT) [address] [place] [address] 46403 Segs + Bands Auto 66.5 % Normal [facility] Comment on above: Performed By: #### Bonifacio ARIAS CHM7 #### [facility] (DEFAULT) [address] [place] [address] 78908 Segs + Bands,Absolute Auto 4.15 K/uL Normal 1.57-6.19 [facility] Comment on above: Performed By: #### Bonifacio ARIAS CHM7 #### [facility] (DEFAULT) [address] [place] [address] 65616 WBC (Bld) [#/Vol] 6.24 10*3/uL Normal 3.73-10.10 [facility] Comment on above: Performed By: #### Bonifacio ARIAS CHM7 #### [facility] (DEFAULT) [address] [place] [address] 61628 [facility] 7 - EDon 11-12-2023 Anion gap [Moles/Vol] 13 mmol/L Normal 7-17 [facility] Comment on above: Performed By: #### L ABHSTI1 #### U [facility] (DEFAULT) [address] [place] [address] 30889 Chloride [Moles/Vol] 100 mmol/L Normal 98-108 [facility] Comment on above: Performed By: #### L ABHSTI1 #### U [facility] (DEFAULT) [address] [place] [address] 40117 CO2 [Moles/Vol] 30 mmol/L Normal 21-31 [facility] Comment on above: Performed By: #### L ABHSTI1 #### U [facility] (DEFAULT) [address] [place] [address] 79498 Creatinine [Mass/Vol] 0.77 mg/dL Normal 0.70-1.30 [facility] Comment on above: Performed By: #### L ABHSTI1 #### U [facility] (DEFAULT) [address] [place] [address] 69221 eGFR, CKD-EPI, Male > Normal >=60 [facility] Comment on above: Result Comment: Repo rted eGFR is based on the CKD-EPI 2020 equation using creatinine, age, and sex. Performed By: #### L ABHSTI1 #### U [facility] (DEFAULT) [address] [place] [address] 86629 Glucose [Mass/Vol] 96 mg/dL Normal 70-99 [facility] Comment on above: Performed By: #### L ABHSTI1 #### [facility] (DEFAULT) [address] [place] [address] 70080 Osmolality [Osmolality] 289 mosm/kg Normal 278-305 [facility] Comment on above: Performed By: #### L ABHSTI1 #### [facility] (DEFAULT) [address] [place] [address] 74509 Potassium [Moles/Vol] 3.7 mmol/L Normal 3.5-5.0 [facility] Comment on above: Performed By: #### L ABHSTI1 #### [facility] (DEFAULT) [address] [place] [address] 39794 Sodium [Moles/Vol] 139 mmol/L Normal 135-145 [facility] Comment on above: Performed By: #### L ABHSTI1 #### U [facility] (DEFAULT) [address] [place] [address] 79285 Urea nitrogen [Mass/Vol] 10 mg/dL Normal 7-25 [facility] Comment on above: Performed By: #### L JAYTI1 #### U [facility] (DEFAULT) [address] [place] [address] 73320 Urea nitrogen/Creatinine [Mass ratio] 13 mg/mg Normal [facility] Comment on above: Performed By: #### L JAYTI1 #### [facility] (DEFAULT) [address] [place] [address] 87250 HEMOGLOBIN A1Con 11-12-2023 Glucose [Mass/Vol] 177 mg/dL Normal [facility] Comment on above: Performed By: #### BAILEY GOULD #### [facility] (DEFAULT) [address] [place] [address] 11021 Hemoglobin A1C HPLC 7.8 % High 4.7-5.6 [facility] Comment on above: Performed By: #### BAILEY GOULD #### [facility] (DEFAULT) [address] [place] [address] 05509 HEPATIC FUNCTION PANELon Albumin [Mass/Vol] 4.0 g/dL Normal 3.5-5.0 [facility] Comment on above: Performed By: #### L [id number] #### [facility] (DEFAULT) [address] [place] [address] 50639 ALP [Catalytic activity/Vol] 94 U/L Normal 32-126 [facility] Comment on above: Performed By: #### L ABHSTI1 #### U [facility] (DEFAULT) [address] [place] [address] 64643 ALT [Catalytic activity/Vol] 17 U/L Normal 10-52 [facility] Comment on above: Performed By: #### L ABHSTI1 #### [facility] (DEFAULT) [address] [place] [address] 37058 AST [Catalytic activity/Vol] 28 U/L Normal 10-39 [facility] Comment on above: Performed By: #### L ABHSTI1 #### U [facility] (DEFAULT) [address] [place] [address] Bilirubin [Mass/Vol] 0.5 mg/dL Normal <1.5 [facility] Comment on above: Performed By: #### L ABHSTI1 #### [facility] (DEFAULT) [address] [place] [address] Bilirubin.indirect [Mass/Vol] 0.1 mg/dL Normal <0.3 [facility] Comment on above: Performed By: #### L ABHSTI1 #### [facility] (DEFAULT) [address] [place] [address] 27485 Protein [Mass/Vol] 7.1 g/dL Normal 6.4-8.3 [facility] Comment on above: Performed By: #### L ABHSTI1 #### [facility] (DEFAULT) [address] [place] [address] 27041 HIGH SENSITIVITY TROPONIN I - SINGLE ORDERon 11-12-2023 hs-Troponin I 22 ng/L Normal <53 [facility] Comment on above: Order Comment: Acute Coronary Syndrome (ACS): Initial Evaluation and Management:[email or web address] Performed By: #### T YPEC #### [facility] (DEFAULT) [address] [place] [address] 96251 LIPID PANEL W CALCULATED LDL on 11-12-2023 Calculated LDL Cholesterol 109 mg/dL High 0-99 [facility] Comment on above: Result Comment: [<10 0 mg/dL: Optimal] [100-129 mg/dL: Near Optimal] [130-159 mg/dL: Borderline High] [160-189 mg/dL: High] [>189 mg/dL: Very High] Performed By: #### T YPEC #### [facility] (DEFAULT) [address] [place] [address] 46082 Cholesterol [Mass/Vol] 180 mg/dL Normal <200 [facility] Comment on above: Result Comment: [<20 0 mg/dL: Desirable] [200-239 mg/dL: Borderline High] [>239 mg/dL: High] Performed By: #### T YPEC #### [facility] (DEFAULT) [address] [place] [address] 51325 Cholesterol in HDL [Mass/Vol] 33 mg/dL Low >=40 [facility] Comment on above: Result Comment: [<40 mg/dL: Low (High Risk)] [>59 mg/dL: High (Low Risk)] Performed By: #### T YPEC #### [facility] (DEFAULT) [address] [address] Non HDL Cholesterol 147 mg/dL High <130 [facility] Comment on above: Performed By: #### T YPEC #### [facility] (DEFAULT) [address] [place] [address] 58422 Total Cholesterol/HDL Ratio 5.5 High <4.5 [facility] Comment on above: Performed By: #### T YPEC #### [facility] (DEFAULT) [address] [address] Triglyceride [Mass/Vol] 188 mg/dL High <150 O [facility] Comment on above: Result Comment: [<15 0 mg/dL: Desirable] [150-199 mg/dL: Borderline] [200-499 mg/dL: High] [>500 mg/dL: Very High] Performed By: #### T YPEC #### [facility] (DEFAULT) [address] [address] MAGNESIUMon 11-12-2023 Magnesium [Mass/Vol] 1.5 mg/dL Low 1.6-2.6 [facility] Comment on above: Performed By: #### U [id number] #### [facility] (DEFAULT) [address] [place] [address] 25475 MRI BRAIN WITH AND WITHOUT C ONTRASTon 11-12-2023 MRI BRAIN WITH AND WITHOUT CONTRAST EXAM: MRI BRAIN WITH AND WITHOUT CONTRAST, 11/12/2023 17:44 PM COMPARISON: No priors available for comparison. CLINICAL INDICATIONS: 68 years Male Neurovascular evaluated patient and recommended MRI brain w/wo contrast. R/o stroke; TECHNIQUE: A series of multisequence, multiplanar images of the brain are obtained both before and after intravenous administration of gadolinium-based contrast using standard protocol. Study was performed at 1.5 [place]. CONTRAST: Gadopiclenol SOLN 1-25 mL; Route of Administration: Intravenous; Dose: 6.7 mL. FINDINGS: Punctate foci of hyperintense DWI signal with iso to hypointense signal on ADC within the subcortical right frontal lobe (series 13 image 55) and the right occipital lobe (series 13 image 49), compatible with acute to subacute infarcts. Encephalomalacia and gliosis in the medial right cerebellum, compatible with remote infarct. Moderate degree of patchy periventricular and deep white matter FLAIR signal hyperintensities which are nonspecific, but compatible with chronic small vessel ischemic changes. Remote lacunar infarcts in the right caudate head, right posterior limb of the right internal capsule, right thalamus, and right centrum semiovale. No evidence of hemorrhage. No abnormal enhancement. No extracerebral collection. Sellar and parasellar structures are unremarkable. Mild prominence of the ventricles and sulci related to brain parenchymal volume loss. Paranasal sinuses and mastoid air cells are generally clear. Prior bilateral cataract surgery. IMPRESSION: Punctate acute to subacute infarcts in the right frontal lobe and right occipital lobe. Remote infarct in the medial right cerebellum. Multiple remote lacunar infarcts. Normal [facility] SEDIMENTATION RATE, AUTOMATE Don 11-12-2023 ESR W[place]gren 20 mm/hr High <20 [facility] Comment on above: Performed By: #### X M #### [facility] (DEFAULT) [address] [place] [address] URINALYSIS REFLEX TO CULTURE PERFORMABLEon 11-12-2023 Appearance (U) Clear Normal Clear [facility] Comment on above: Order Comment: For i ndwelling catheters, specimen collection is acceptable on catheter day 1 and 2 only. ? Performed By: #### U [id number] #### [facility] (DEFAULT) [address] [place] [address] 03077 Bacteria ABSENT Normal ABSENT [facility] Comment on above: Order Comment: For i ndwelling catheters, specimen collection is acceptable on catheter day 1 and 2 only. ? Performed By: #### U [id number] #### [facility] (DEFAULT) [address] [place] [address] 49173 Blood Urine Negative Normal Negative [facility] Comment on above: Order Comment: For i ndwelling catheters, specimen collection is acceptable on catheter day 1 and 2 only. ? Performed By: #### U [id number] #### [facility] (DEFAULT) [address] [place] [address] 22623 Color (U) Yellow Normal Yellow [facility] Comment on above: Order Comment: For i ndwelling catheters, specimen collection is acceptable on catheter day 1 and 2 only. ? Performed By: #### U [id number] #### [facility] (DEFAULT) [address] [place] [address] 66450 Glucose Ql (U) >=1000 mg/dL Abnormal Negative [facility] Comment on above: Order Comment: For i ndwelling catheters, specimen collection is acceptable on catheter day 1 and 2 only. ? Performed By: #### U [id number] #### [facility] (DEFAULT) [address] [place] [address] 44354 Ketones Ql (U) 15 mg/dL = Small Abnormal Negative [facility] Comment on above: Order Comment: For i ndwelling catheters, specimen collection is acceptable on catheter day 1 and 2 only. ? Performed By: #### U [id number] #### [facility] (DEFAULT) [address] [place] [address] 83347 Leukocyte esterase Test strip Ql (U) Negative Normal Negative [facility] Comment on above: Order Comment: For i ndwelling catheters, specimen collection is acceptable on catheter day 1 and 2 only. ? Performed By: #### U [id number] #### [facility] (DEFAULT) [address] [place] [address] 34028 Nitrites Urine Negative Normal Negative [facility] Comment on above: Order Comment: For i ndwelling catheters, specimen collection is acceptable on catheter day 1 and 2 only. ? Performed By: #### U [id number] #### [facility] (DEFAULT) [address] [place] [address] 75268 pH (U) 6.0 [pH] Normal 5.0-7.0 [facility] Comment on above: Order Comment: For i ndwelling catheters, specimen collection is acceptable on catheter day 1 and 2 only. ? Performed By: #### U [id number] #### [facility] (DEFAULT) [address] [address] Protein Urine Trace Abnormal Negative [facility] Comment on above: Order Comment: For i ndwelling catheters, specimen collection is acceptable on catheter day 1 and 2 only. ? Performed By: #### U [id number] #### [facility] (DEFAULT) [address] [address] RBC Urine 0-2 Normal 0-2 [facility] Comment on above: Order Comment: For i ndwelling catheters, specimen collection is acceptable on catheter day 1 and 2 only. ? Performed By: #### U [id number] #### [facility] (DEFAULT) [address] [address] Specific [place] Urine 1.027 Normal 1.001-1.035 O [facility] Comment on above: Order Comment: For i ndwelling catheters, specimen collection is acceptable on catheter day 1 and 2 only. ? Performed By: #### U [id number] #### [facility] (DEFAULT) [address] [address] Squamous/Epithelial Cells 0-2/hpf Normal 0-2/hpf, 3-5/hpf = 1+ [facility] Comment on above: Order Comment: For i ndwelling catheters, specimen collection is acceptable on catheter day 1 and 2 only. ? Performed By: #### U [id number] #### [facility] (DEFAULT) [address] [place] [address] 78851 Urobilinogen Urine 0.2 E.U./dL Normal 0.2 E.U/d L, 1.0 E.U/dL [facility] Comment on above: Order Comment: For i ndwelling catheters, specimen collection is acceptable on catheter day 1 and 2 only. ? Performed By: #### U [id number] #### [facility] (DEFAULT) [address] [place] [address] 49544 WBC Urine 0 - 5 Normal 0 - 5 [facility] Comment on above: Order Comment: For i ndwelling catheters, specimen collection is acceptable on catheter day 1 and 2 only. ? Performed By: #### U [id number] #### [facility] (DEFAULT) [address] [place] [address] 65998 XR CHEST PA AND LATERAL 2 EWSon 11-12-2023 XR CHEST PA AND LATERAL 2 VIEWS EXAM: XR CHEST PA AND LATERAL 2 VIEWS, 11/12/2023 11:38 AM COMPARISON: No prior studies available for comparison. CLINICAL INDICATIONS: R/o PNA RELEVANT CLINICAL HISTORY: FINDINGS: (Adequate technique) Implanted Devices: None Lungs: Clear, without mass, interstitial disease, or consolidation. Pleural Spaces: No pleural effusion. No pneumothorax. Mediastinum and Kirstie: Normal Cardiac silhouette and great vessels: Normal heart size. Unremarkable aorta. Chest Wall: Median sternotomy. Indeterminate age nondisplaced fracture of the proximal left humerus. IMPRESSION: No acute cardiopulmonary disease Indeterminate age nondisplaced fracture of the proximal left humerus, I suggest further evaluation with dedicated radiograph. Normal [facility] Absolute lymphocyte countOrd ered By: Kenzie Britton on 2023 Lymphocytes Auto (Unsp spec) [#/Vol] 1.10 10*3/uL 0.83-4.51 [facility] Activated partial thrombopla stin time (aPTT) in platelet poor plasma by coagulation aOrdered By: Kenzie Britton on 2023 aPTT Coag (PPP) [Time] 49.2 s 24.1-36.2 [facility] Automated lymphocyte count a s percentage of total leukocytesOrdered By: Kenzie Britton on 2023 Lymphocytes/100 WBC Auto (Unsp spec) 19.9 % 19-41 [facility] [facility] Basophil percentageOrdered B y: Kenize Britton on 2023 Basophil percentage 0 SEEN /hpf 0-5 [facility] Basophils/100 WBC (Bld) 0.4 % 0-1 [facility] Bilirubin [Mass/Vol] 0.30 mg/dL 0.20-1.00 [facility] Comment on above: For patients on eltr ombopag therapy, use of Dimension Capitola TBIL is not recommended. Chloride [Moles/Vol] 99 mmol/L 98-107 [facility] Eosinophils/100 WBC (Bld) 0.9 % 0-5 [facility] Glucose [Mass/Vol] 155 mg/dL 74-106 [facility] Comment on above: Fasting Glucose resu lt greater than or equal to 126 mg/dL suggests DIABETES MELLITUS per A.D.A. criteria. Hemoglobin (Bld) [Mass/Vol] 12.3 g/dL 13.0-16.5 [facility] Monocytes/100 WBC (Bld) 10.8 % 0-[address] [facility] Neutrophils (Bld) [#/Vol] 3.8 10*3/uL 2.0-7.7 [facility] Neutrophils/100 WBC (Bld) 67.8 % 47-70 [facility] Potassium [Moles/Vol] 3.2 mmol/L 3.5-5.1 [facility] Protein [Mass/Vol] 6.9 g/dL 6.4-8.2 [facility] Sodium [Moles/Vol] 138 mmol/L 136-145 [facility] WBC (Bld) [#/Vol] 5.5 10*3/uL 4.4-11.0 [facility] Bilirubin Test strip Ql (U)O rdered By: Kenzie Britton on 2023 Bilirubin Ql (U) Negative Negative [facility] Determination of erythrocyte mean corpuscular volume (MCV)Ordered By: Kenzie Britton on 2023 MCV (RBC) [Entitic vol] 85.4 fL 80-94 [facility] Direct bilirubinOrdered By: Kenzie Britton on 2023 Bilirubin.direct [Mass/Vol] 0.10 mg/dL 0.00-0.30 [facility] Erythrocyte distribution wid th ratioOrdered By: Kenzie Britton on 2023 Erythrocyte distribution width (RBC) [Ratio] 14.6 % 11.6-14.6 [facility] Erythrocyte distribution wid th standard deviationOrdered By: Kenzie Britton on 2023 Erythrocyte distribution width (RBC) [Entitic vol] 45.2 fL 35.1-43.9 [facility] Hematocrit Auto (Bld) [Volum e fraction]Ordered By: Kenzie Britton on 2023 Hematocrit (Bld) [Volume fraction] 38.1 % 40-54 [facility] Immature granulocytes/100 WB C Auto (Bld)Ordered By: Kenzie Britton on 2023 Immature granulocytes/100 WBC (Bld) 0.200 % 0.0-0.9 [facility] Comment on above: IG% - Immature Granu locytes (promyelocytes, myelocytes and metamyelocytes) > 1% indicates that a LEFT SHIFT is Present. Ketones Test strip Ql (U)Ord ered By: Kenzie Britton on 2023 Ketones Ql (U) Negative Negative [facility] Laboratory - Chemistry and C hemistry - challengeOrdered By: Kenzie Britton on 2023 ALP [Catalytic activity/Vol] 94 U/L 45-117 [facility] ALT [Catalytic activity/Vol] 29 U/L 16-61 [facility] CO2 [Moles/Vol] 32.0 mmol/L 21.0-32.0 [facility] Globulin (S) [Mass/Vol] 3.5 g/dL 2.2-4.[address] [facility] Urea nitrogen/Creatinine [Mass ratio] 15.2 mg/mg 10-20 [facility] Laboratory - CoagulationOrde red By: Kenzie Britton on 2023 INR Coag (Bld) [Relative time] 1.1 {INR} [facility] PT Coag (PPP) [Time] 13.7 s 11.7-14.9 [facility] Laboratory - Hematology and Cell countsOrdered By: Kenzie Britton on 2023 MCH (RBC) [Entitic mass] 27.6 pg 27.0-32.0 [facility] MCHC (RBC) [Mass/Vol] 32.3 g/dL 32-36 [facility] Nucleated RBC/100 WBC (Bld) [Ratio] 0 % 0-5 [facility] Platelet mean volume (Bld) [Entitic vol] 9.5 fL 6.2-12.0 [facility] Platelets (Bld) [#/Vol] 246 10*3/uL 150-450 [facility] Mucus LM Ql (Urine sed)Order ed By: Kenzie Britton on 2023 Mucus Ql (Urine sed) 0 SEEN /hpf [facility] Nitrite Test strip Ql (U)Ord ered By: Kenzie Britton on 2023 Nitrite Ql (U) Negative Negative [facility] No Panel InformationOrdered By: Kenzie Britton on 2023 Urine RBC 0 SEEN /hpf 0-5 [facility] Estimated Creatinine Clearance Calc 69.55 ml/min [facility] Estimated GFR (MDRD) Amer 98 mL/min >60 [facility] Comment on above: GFR Calc Estimated GFR (MDRD) Non-Af Amer 81 mL/min >60 [facility] Comment on above: Non- GFR Calc Troponin I High Sensitivity 22 pg/mL 3.0-78.0 [facility] Comment on above: Please Note: New Jeny t Units and Gender Specific Reference Ranges. For more information see Policy Stat Procedure Capitola High Sensitivity Troponin (TNIH) and attachments. Protein Test strip Ql (U)Ord ered By: Kenzie Britton on 2023 Protein Ql (U) 15 mg/dl Negative [facility] RBC Auto (Bld) [#/Vol]Ordere d By: Kenzie Britton on 2023 RBC (Bld) [#/Vol] 4.46 10*6/uL 4.6-6.2 [facility] Serum or plasma calcium isael urement (mass/volume)Ordered By: Kenzie Britton on 2023 Calcium [Mass/Vol] 8.1 mg/dL 8.5-10.1 [facility] Serum or plasma creatinine m easurement (mass/volume)Ordered By: Kenzie Britton on 2023 Creatinine [Mass/Vol] 0.99 mg/dL 0.70-1.30 [facility] Comment on above: The validity of the calculated GFR & GFRAA in patients over 70 years has not been determined. Clinical correlation is essential. Serum or plasma urea nitroge n measurement (mass/volume)Ordered By: Kenzie Britton on 2023 Urea nitrogen [Mass/Vol] 15 mg/dL 7-18 [facility] Squamous epithelial cells de tection in urine sediment by light microscopyOrdered By: Kenzie Britton on 2023 Epithelial cells.squamous LM Ql (Urine sed) 0 SEEN /hpf 0-5 [facility] Thin prep Papanicolaou smear with manual screeningOrdered By: Kenzie Britton on 2023 Thin prep Papanicolaou smear with manual screening 3.4 g/dL 3.2-5.0 [facility] Thin prep Papanicolaou smear with manual screening 29 U/L 15-37 [facility] Thin prep Papanicolaou smear with manual screening 7 5-15 [facility] Thin prep Papanicolaou smear with manual screening 153 mg/dL 74-106 [facility] Comment on above: MANAGEMENT OF PATIEN T CARE PER NURSING PROTOCOL Urine blood detectionOrdered By: Kenzie Britton on 2023 RBC Ql (U) Negative Negative [facility] Urine clarityOrdered By: Niko Britton on 2023 Clarity (U) Clear Clear [facility] Urine color determinationOrd ered By: Kenzie Britton on 2023 Color (U) Yellow Yellow [facility] Urine glucose detectionOrder ed By: Kenzie Britton on 2023 Glucose Ql (U) Normal mg/dl Normal [facility] Urine leukocyte esterase det ection by dipstickOrdered By: Kenzie Britton on 2023 Leukocyte esterase Test strip Ql (U) Negative Negative [facility] Urine pHOrdered By: Kenzie ware on 2023 pH (U) 7.0 [pH] 5.0 - 8.0 [facility] Urine sediment bacteria coun t by microscopy (number/high power field)Ordered By: Kenzie Britton on 2023 Bacteria LM.HPF (Urine sed) [#/Area] 0 /[HPF] None Seen [facility] Urine specific gravity measu rementOrdered By: Kenzie Britton on 2023 Specific gravity (U) [Rel density] 1.010 1.002-1.030 [facility] Urine urobilinogen measureme ntOrdered By: Kenzie Britton on 2023 Urobilinogen Ql (U) Normal mg/dl Normal [facility] Basophil percentageOrdered B y: Kendy Modi on 10-16-2023 Cholesterol [Mass/Vol] 132 mg/dL <200 [facility] Comment on above: <200 mg/dL Desirable 200-240 mg/dL Borderline >240 mg/dL High Risk Triglyceride [Mass/Vol] 187 mg/dL <199 [facility] Comment on above: The drugs N-Acetylcy steine and Metamizole may falsely depress this assay.Serum Triglycerides Reference Interval Normal <150 mg/dL Borderline high 150 - 199 mg/dL High 200 - 499 mg/dL Very High > or = 500 mg/dL Laboratory - Chemistry and C hemistry - challengeOrdered By: Kendy Modi on 10-16-2023 Cholesterol in HDL [Mass/Vol] 29 mg/dL >40 [facility] Comment on above: The drugs N-Acetylcy steine and Metamizole may falsely depress this assay. Reference Range HDL <40 mg/dL Low HDL Cholesterol HDL >or= 60 mg/dL High HDL Cholesterol Cholesterol in LDL [Mass/Vol] 66 mg/dL 0-130 [facility] No Panel InformationOrdered By: Kendy Modi on 10-16-2023 Prostate Specific Antigen Screen 1.29 ng/mL 0.00-4.00 [facility] Comment on above: This test was perfor med using the TPSA assay method for the[employer] SystemsTongal chemistry system. Values obtained with differentassay methods cannot be used interchangably.When changing PSA assays in the course of monitoring apatient, additional sequential testing should be carriedout to confirm baseline values. VLDL Cholesterol 37 mg/dL 5-40 [facility] Thin prep Papanicolaou smear with manual screeningOrdered By: Kendy Modi on 10-16-2023 Protein (U) [Mass/Vol] 43.3 mg/dL 0.0-11.8 [facility] Urine creatinine measurement (mass/volume)Ordered By: Kendy Modi on 10-16-2023 Creatinine (U) [Mass/Vol] 293.00 mg/dL NO RANGE EST. [facility] Urine protein/creatinine mas s ratioOrdered By: Kendy Modi on 10-16-2023 Protein/Creatinine (U) [Mass ratio] 148 mg/g CRE 0-200 [facility] Absolute lymphocyte countOrd ered By: Catherine Barton on 03-12-2023 Lymphocytes Auto (Unsp spec) [#/Vol] 0.97 10*3/uL 0.83-4.51 [facility] Basophil percentageOrdered B y: Catherine Barton on 03-12-2023 Basophils/100 WBC (Bld) 0.2 % 0-1 [facility] Chloride [Moles/Vol] 102 mmol/L 98-107 [facility] Eosinophils/100 WBC (Bld) 2.1 % 0-5 [facility] Glucose [Mass/Vol] 245 mg/dL 74-106 [facility] Comment on above: Glucose result great er than or equal to 200 mg/dLsuggests DIABETES MELLITUS per A.D.A. criteria. Neutrophils (Bld) [#/Vol] 2.7 10*3/uL 2.0-7.7 [facility] Neutrophils/100 WBC (Bld) 62.5 % 47-70 [facility] Potassium [Moles/Vol] 4.0 mmol/L 3.5-5.1 [facility] Sodium [Moles/Vol] 137 mmol/L 136-145 [facility] WBC (Bld) [#/Vol] 4.3 10*3/uL 4.4-11.0 [facility] Blood erythrocytes count (nu mber/volume)Ordered By: Catherine Barton on 03-12-2023 RBC (Bld) [#/Vol] 4.60 10*6/uL 4.6-6.2 [facility] Blood hemoglobin measurement (mass/volume)Ordered By: Catherine Barton on 03-12-2023 Hemoglobin (Bld) [Mass/Vol] 12.5 g/dL 13.0-16.5 [facility] Blood lymphocytes/100 leukoc ytesOrdered By: Catherine Barton on 03-12-2023 Lymphocytes/100 WBC (Bld) 22.8 % 19-41 [facility] Blood monocytes/100 leukocyt esOrdered By: Catherine Barton on 03-12-2023 Monocytes/100 WBC (Bld) 12.2 % 0-10 [facility] Blood platelet mean volumeOr dered By: Catherine Barton on 03-12-2023 Platelet mean volume (Bld) [Entitic vol] 9.4 fL 6.2-12.0 [facility] Determination of erythrocyte mean corpuscular volume (MCV)Ordered By: Catherine Barton on 03-12-2023 MCV (RBC) [Entitic vol] 86.1 fL 80-94 [facility] Glucose Glucometer (dC) [M ass/Vol]Ordered By: Catherine Barton on 03-12-2023 Glucose [Mass/Vol] 303 mg/dL 74-106 [facility] Comment on above: MANAGEMENT OF PATIEN T CARE PER NURSING PROTOCOL Hematocrit Auto (Bld) [Volum e fraction]Ordered By: Catherine Barton on 03-12-2023 Hematocrit (Bld) [Volume fraction] 39.6 % 40-54 [facility] Laboratory - Chemistry and C hemistry - challengeOrdered By: Catherine Barton on 03-12-2023 CO2 [Moles/Vol] 30.0 mmol/L 21.0-32.0 [facility] Urea nitrogen/Creatinine [Mass ratio] 15.2 mg/mg 10-20 [facility] Laboratory - Hematology and Cell countsOrdered By: Catherine Barton on 03-12-2023 Erythrocyte distribution width (RBC) [Entitic vol] 43.8 fL 35.1-43.9 [facility] Erythrocyte distribution width (RBC) [Ratio] 14.1 % 11.6-14.6 [facility] Immature granulocytes/100 WBC (Bld) 0.200 % 0.0-0.9 [facility] Comment on above: IG% - Immature Granu locytes (promyelocytes, myelocytes and metamyelocytes) > 1% indicates that a LEFT SHIFT is Present. MCH (RBC) [Entitic mass] 27.2 pg 27.0-32.0 [facility] Nucleated RBC/100 WBC (Bld) [Ratio] 0 % 0-5 [facility] MCHC Auto (RBC) [Mass/Vol]Or dered By: Catherine Barton on 03-12-2023 MCHC (RBC) [Mass/Vol] 31.6 g/dL 32-36 [facility] No Panel InformationOrdered By: Catherine Barton on 03-12-2023 Estimated Creatinine Clearance Calc 74.84 ml/min [facility] Estimated GFR (MDRD) Amer 106 mL/min >60 [facility] Comment on above: GFR Calc Estimated GFR (MDRD) Non-Af Amer 88 mL/min >60 [facility] Comment on above: Non- GFR Calc Platelets bldOrdered By: Olivia Barton on 03-12-2023 Platelets (Bld) [#/Vol] 237 10*3/uL 150-450 [facility] Serum or plasma calcium isael urement (mass/volume)Ordered By: Catherine Barton on 03-12-2023 Calcium [Mass/Vol] 9.0 mg/dL 8.5-10.1 [facility] Serum or plasma creatinine m easurement (mass/volume)Ordered By: Catherine Barton on 03-12-2023 Creatinine [Mass/Vol] 0.92 mg/dL 0.70-1.30 [facility] Comment on above: The validity of the calculated GFR & GFRAA in patients over 70 years has not been determined. Clinical correlation is essential. Serum or plasma urea nitroge n measurement (mass/volume)Ordered By: Catherine Barton on 03-12-2023 Urea nitrogen [Mass/Vol] 14 mg/dL 7-18 [facility] Thin prep Papanicolaou smear with manual screeningOrdered By: Catherine Barton on 03-12-2023 Thin prep Papanicolaou smear with manual screening 5 5-15 [facility] Whole blood hemoglobin A1c/t otal hemoglobin ratio (mass fraction)Ordered By: Catherine Barton on 03-12-2023 HbA1c (Bld) [Mass fraction] 8.4 % 3.8-5.6 [facility] Comment on above: Normal < 5.7 % Predi abetic 5.7 - 6.4 % Diabetic >or= 6.5 % Please note range changes. Absolute lymphocyte countOrd ered By: Citlali Zurita on 03-10-2023 Lymphocytes Auto (Unsp spec) [#/Vol] 0.86 10*3/uL 0.83-4.51 [facility] Basophil percentageOrdered B y: Citlali Zurita on 03-10-2023 Basophil percentage 0 SEEN /hpf 0-5 [facility] Basophils/100 WBC (Bld) 0.5 % 0-[address] [facility] Chloride [Moles/Vol] 104 mmol/L 98-107 [facility] Eosinophils/100 WBC (Bld) 0.5 % 0-5 [facility] Glucose [Mass/Vol] 141 mg/dL 74-106 [facility] Comment on above: Fasting Glucose resu lt greater than or equal to 126 mg/dL suggests DIABETES MELLITUS per A.D.A. criteria. Neutrophils (Bld) [#/Vol] 6.4 10*3/uL 2.0-7.7 [facility] Neutrophils/100 WBC (Bld) 79.4 % 47-70 [facility] Potassium [Moles/Vol] 4.3 mmol/L 3.5-5.1 [facility] Sodium [Moles/Vol] 139 mmol/L 136-145 [facility] WBC (Bld) [#/Vol] 8.1 10*3/uL 4.4-11.0 [facility] Basophil percentageOrdered B y: Matt Zohaib on 03-10-2023 Basophil percentage 4.9 mg/dL 2.5-4.9 [facility] Bilirubin Test strip Ql (U)O rdered By: Citlali Zurita on 03-10-2023 Bilirubin Ql (U) Negative Negative [facility] Blood erythrocytes count (nu mber/volume)Ordered By: Citlali Zurita on 03-10-2023 RBC (Bld) [#/Vol] 4.64 10*6/uL 4.6-6.2 [facility] Blood hemoglobin measurement (mass/volume)Ordered By: Citlali Zurita on 03-10-2023 Hemoglobin (Bld) [Mass/Vol] 13.0 g/dL 13.0-16.5 [facility] Blood lymphocytes/100 leukoc ytesOrdered By: Citlali Zurita on 03-10-2023 Lymphocytes/100 WBC (Bld) 10.6 % 19-41 [facility] Blood monocytes/100 leukocyt esOrdered By: Citlali Zurita on 03-10-2023 Monocytes/100 WBC (Bld) 8.5 % 0-10 [facility] Blood platelet mean volumeOr dered By: Citlali Zurita on 03-10-2023 Platelet mean volume (Bld) [Entitic vol] 9.4 fL 6.2-12.0 [facility] Determination of erythrocyte mean corpuscular volume (MCV)Ordered By: Citlali Zurita on 03-10-2023 MCV (RBC) [Entitic vol] 87.5 fL 80-94 [facility] Hematocrit Auto (Bld) [Volum e fraction]Ordered By: Citlali Zurita on 03-10-2023 Hematocrit (Bld) [Volume fraction] 40.6 % 40-54 [facility] Ketones Test strip Ql (U)Ord ered By: Citlali Zurita on 03-10-2023 Ketones Ql (U) Negative Negative [facility] Laboratory - Chemistry and C hemistry - challengeOrdered By: Citlali Zurita on 03-10-2023 CO2 [Moles/Vol] 31.0 mmol/L 21.0-32.0 [facility] Urea nitrogen/Creatinine [Mass ratio] 17.2 mg/mg 10-20 [facility] Laboratory - Chemistry and C hemistry - challengeOrdered By: Matt Penny on 03-10-2023 Magnesium [Mass/Vol] 1.8 mg/dL 1.6-2.6 [facility] Laboratory - Hematology and Cell countsOrdered By: Citlali Zurita on 03-10-2023 Erythrocyte distribution width (RBC) [Entitic vol] 45.3 fL 35.1-43.9 [facility] Erythrocyte distribution width (RBC) [Ratio] 14.2 % 11.6-14.6 [facility] Immature granulocytes/100 WBC (Bld) 0.500 % 0.0-0.9 [facility] Comment on above: IG% - Immature Granu locytes (promyelocytes, myelocytes and metamyelocytes) > 1% indicates that a LEFT SHIFT is Present. MCH (RBC) [Entitic mass] 28.0 pg 27.0-32.0 [facility] Nucleated RBC/100 WBC (Bld) [Ratio] 0 % 0-5 [facility] MCHC Auto (RBC) [Mass/Vol]Or dered By: Citlali Zurita on 03-10-2023 MCHC (RBC) [Mass/Vol] 32.0 g/dL 32-36 [facility] Mucus LM Ql (Urine sed)Order ed By: Citlali Zurita on 03-10-2023 Mucus Ql (Urine sed) 0 SEEN /hpf [facility] Nitrite Test strip Ql (U)Ord ered By: Citlali Zurita on 03-10-2023 Nitrite Ql (U) Negative Negative [facility] No Panel InformationOrdered By: Citlali Zurita on 03-10-2023 Estimated Creatinine Clearance Calc 59.36 ml/min [facility] Estimated GFR (MDRD) Amer 81 mL/min >60 [facility] Comment on above: GFR Calc Estimated GFR (MDRD) Non-Af Amer 67 mL/min >60 [facility] Comment on above: Non- GFR Calc Troponin I High Sensitivity 12 pg/mL 3.0-78.0 [facility] Comment on above: Please Note: New Jeny t Units and Gender Specific Reference Ranges. For more information see Policy Stat Procedure Capitola High Sensitivity Troponin (TNIH) and attachments. Platelets bldOrdered By: Mary Ann Zurita on 03-10-2023 Platelets (Bld) [#/Vol] 295 10*3/uL 150-450 [facility] Protein Test strip Ql (U)Ord ered By: Citlali Zurita on 03-10-2023 Protein Ql (U) 15 mg/dl Negative [facility] Serum or plasma calcium isael urement (mass/volume)Ordered By: Citlali Zurita on 03-10-2023 Calcium [Mass/Vol] 8.8 mg/dL 8.5-10.1 [facility] Serum or plasma creatinine m easurement (mass/volume)Ordered By: Citlali Zurita on 03-10-2023 Creatinine [Mass/Vol] 1.16 mg/dL 0.70-1.30 [facility] Comment on above: The validity of the calculated GFR & GFRAA in patients over 70 years has not been determined. Clinical correlation is essential. Serum or plasma urea nitroge n measurement (mass/volume)Ordered By: Citlali Zurita on 03-10-2023 Urea nitrogen [Mass/Vol] 20 mg/dL 7-18 [facility] Squamous epithelial cells de tection in urine sediment by light microscopyOrdered By: Citlali Zurita on 03-10-2023 Epithelial cells.squamous LM Ql (Urine sed) 0 SEEN /hpf 0-5 [facility] Thin prep Papanicolaou smear with manual screeningOrdered By: Citlali Zurita on 03-10-2023 Thin prep Papanicolaou smear with manual screening 4 5-15 [facility] Urine blood detectionOrdered By: Citlali Zurita on 03-10-2023 RBC Ql (U) Negative Negative [facility] RBC Ql (U) 0 SEEN /hpf 0-5 [facility] Urine clarityOrdered By: Mary Ann Zurita on 03-10-2023 Clarity (U) Clear Clear [facility] Urine color determinationOrd ered By: Citlali Zurita on 03-10-2023 Color (U) Yellow Yellow [facility] Urine glucose detectionOrder ed By: Citlali Zurita on 03-10-2023 Glucose Ql (U) 50 mg/dl Normal [facility] Urine leukocyte esterase det ection by dipstickOrdered By: Citlali Zurita on 03-10-2023 Leukocyte esterase Test strip Ql (U) Negative Negative [facility] Urine pHOrdered By: Citlali Zurita on 03-10-2023 pH (U) 6.0 [pH] 5.0 - 8.0 [facility] Urine sediment bacteria coun t by microscopy (number/high power field)Ordered By: Citlali Zurita on 03-10-2023 Bacteria LM.HPF (Urine sed) [#/Area] 0 /[HPF] None Seen [facility] Urine specific gravity measu rementOrdered By: Citlali Zurita on 03-10-2023 Specific gravity (U) [Rel density] 1.015 1.002-1.030 [facility] Urobilinogen Auto test strip Ql (U)Ordered By: Citlali Zurita on 03-10-2023 Urobilinogen Ql (U) Normal mg/dl Normal [facility] No Panel InformationOrdered By: Dr. Modi on 10-07-2022 Urine Microalbumin/Creatinine Ratio 20.5 mg/g CRE <30 [facility] Thin prep Papanicolaou smear with manual screeningOrdered By: Dr. Modi on 10-07-2022 Thin prep Papanicolaou smear with manual screening 56.5 mg/L NO RANGE EST. [facility] Urine creatinine measurement (mass/volume)Ordered By: Dr. Modi on 10-07-2022 Creatinine (U) [Mass/Vol] 276.00 mg/dL NO RANGE EST. [facility] Basophil percentageOrdered B y: Dr. Modi on 10-05-2022 Bilirubin [Mass/Vol] 0.20 mg/dL 0.20-1.00 [facility] Comment on above: For patients on eltr ombopag therapy, use of Dimension Capitola TBIL is not recommended. Chloride [Moles/Vol] 102 mmol/L 98-107 [facility] Cholesterol [Mass/Vol] 161 mg/dL <200 [facility] Comment on above: <200 mg/dL Desirable 200-240 mg/dL Borderline >240 mg/dL High Risk Glucose [Mass/Vol] 111 mg/dL 74-106 [facility] Comment on above: Fasting Glucose resu lt from 100 to 125 mg/dL suggests IMPAIRED HOMEOSTASIS per A.D.A. criteria. Potassium [Moles/Vol] 3.9 mmol/L 3.5-5.1 [facility] Protein [Mass/Vol] 7.3 g/dL 6.4-8.2 [facility] Sodium [Moles/Vol] 138 mmol/L 136-145 [facility] Triglyceride [Mass/Vol] 186 mg/dL <199 [facility] Comment on above: The drugs N-Acetylcy steine and Metamizole may falsely depress this assay.Serum Triglycerides Reference Interval Normal <150 mg/dL Borderline high 150 - 199 mg/dL High 200 - 499 mg/dL Very High > or = 500 mg/dL Direct bilirubinOrdered By: Dr. Modi on 10-05-2022 Bilirubin.direct [Mass/Vol] 0.10 mg/dL 0.00-0.30 [facility] Laboratory - Chemistry and C hemistry - challengeOrdered By: Dr. Modi on 10-05-2022 ALP [Catalytic activity/Vol] 107 U/L 45-117 [facility] ALT [Catalytic activity/Vol] 35 U/L 16-61 [facility] CO2 [Moles/Vol] 27.0 mmol/L 21.0-32.0 [facility] Globulin (S) [Mass/Vol] 3.9 g/dL 2.2-4.2 [facility] Urea nitrogen/Creatinine [Mass ratio] 24.0 mg/mg 10-20 [facility] No Panel InformationOrdered By: Dr. Modi on 10-05-2022 Estimated GFR (MDRD) Amer 107 mL/min >60 [facility] Comment on above: GFR Calc Estimated GFR (MDRD) Non-Af Amer 88 mL/min >60 [facility] Comment on above: Non- GFR Calc Prostate Specific Antigen Screen 0.92 ng/mL 0.00-4.00 [facility] Comment on above: This test was perfor med using the TPSA assay method [facility] ([place], [place] chemistry system. Values obtained with differentassay methods cannot be used interchangably.When changing PSA assays in the course of monitoring apatient, additional sequential testing should be carriedout to confirm baseline values. Serum or plasma albumin isael urement (mass/volume)Ordered By: Dr. Modi on 10-05-2022 Albumin [Mass/Vol] 3.4 g/dL 3.2-5.0 [facility] Serum or plasma calcium isael urement (mass/volume)Ordered By: Dr. Modi on 10-05-2022 Calcium [Mass/Vol] 8.8 mg/dL 8.5-10.1 [facility] Serum or plasma cholesterol in HDL measurement (mass/volume)Ordered By: Dr. Modi on 10-05-2022 Cholesterol in HDL [Mass/Vol] 30 mg/dL >40 [facility] Comment on above: The drugs N-Acetylcy steine and Metamizole may falsely depress this assay. Reference Range HDL <40 mg/dL Low HDL Cholesterol HDL >or= 60 mg/dL High HDL Cholesterol Serum or plasma cholesterol in VLDL measurement (mass/volume)Ordered By: Dr. Modi on 10-05-2022 Cholesterol in VLDL [Mass/Vol] 37 mg/dL 5-40 [facility] Serum or plasma creatinine m easurement (mass/volume)Ordered By: Dr. Modi on 10-05-2022 Creatinine [Mass/Vol] 0.92 mg/dL 0.70-1.30 [facility] Comment on above: The validity of the calculated GFR & GFRAA in patients over 70 years has not been determined. Clinical correlation is essential. Serum or plasma low density lipoprotein (LDL) cholesterol measurement (mass/volume)Ordered By: Dr. Modi on 10-05-2022 Cholesterol in LDL [Mass/Vol] 94 mg/dL 0-130 [facility] Serum or plasma urea nitroge n measurement (mass/volume)Ordered By: Dr. Modi on 10-05-2022 Urea nitrogen [Mass/Vol] 22 mg/dL 7-18 [facility] Thin prep Papanicolaou smear with manual screeningOrdered By: Dr. Modi on 10-05-2022 Thin prep Papanicolaou smear with manual screening 34 U/L 15-37 [facility] Thin prep Papanicolaou smear with manual screening 9 5-15 [facility] ALLIED HEALTHon 03-15-2022 ALLIED HEALTH HNO ID: [id number] Author: Tereza Denise blueprint machine operator Service: Radiology Author Type: Cloth Printing Back Tender Type: Allied Health Filed: 03/15/2022 2:56 PM Note Text: Radiology Service Progress Note PATIENT NAME: Isaias Vega DATE OF SERVICE: March 15, 2022 TIME: [...] and Intact, Site disposition Discontinued SIGNED BY: Tereza Denise blueprint machine operator March 15, 2022 2:54 PM Normal [facility] CREATININE, BLOOD (POC)on Creatinine [Mass/Vol] 0.90 mg/dL 0.58 - 1.22 mg/dL [facility] eGFR (POCT) [facility] MRI LIVER (EOVIST) WO/W IVCO Non 03-15-2022 MRI LIVER (EOVIST) WO/W IVCON * * *Final Report* * * DATE OF EXAM: Mar 15 2022 3:15PM [facility] [id number] - MRI LIVER (EOVIST) WO/W IVCON / PROCEDURE REASON: multiple diagnoses * * * * Physician Interpretation * * * * MRI OF THE ABDOMEN WITHOUT AND WITH CONTRAST: CLINICAL HISTORY: History of rectal cancer, abnormal CT, liver lesion COMPARISON: None. TECHNIQUE: Siemens 1.5 T Avanto scanner. Using the torso phased array coil, axial STIR and T1 weighted in- and [id number] images were obtained. Then, using a 3-D GRE T1 weighted sequence, dynamic images were obtained before, during and after the administration of intravenous contrast. Subsequently, axial and coronal HASTE, axial diffusion weighted and axial T2 weighted images were obtained. Flow sensitive imaging of the portal vein was performed. Finally, a delayed post-contrast phase was obtained using the same 3D GRE sequence. Contrast: IV: 10 ml of Eovist Oral Contrast: None RESULT: Liver: The liver is normal in contour and enhances homogeneously. Diffuse hepatic steatosis. Areas of focal fatty sparing along the gallbladder fossa. 2.4 x 1.3 cm area of signal dropout of phase images in the dome of the liver (image 9, 3) without underlying T2 abnormality or enhancement, likely focal fatty infiltration.. Other focal areas of signal dropout on out of phase images. Reference areas include: 1.3 x 1.2 cm area along the periphery of hepatic segment 6 (35, 3). Demonstrates subtle T2 hyperintensity and hypoenhancing to normal hepatic parenchyma. Similar in size to prior study. Adjacent 0.6 and 0.4 cm areas in hepatic segment 6 (image 29, 3), also demonstrates subtle T2 hyperintensity and are hypoenhancing, unchanged 0.6 cm area of signal dropout in in hepatic segment 8 (image 23, 19), unchanged. 0.6 cm area of signal dropout in hepatic segment 8 seen on prior study is no longer seen. There is no thrombus in the portal venous system (splenic vein, main portal vein, left and right anterior and right posterior portal vein branches). Narrowing at the origins of celiac axis and SMA. Spleen - The spleen measures 10.0 cm in length, normal. There are no focal splenic masses. Pancreaticobiliary: There is no intrahepatic biliary dilation. The common bile duct is normal in course and caliber. No filling defects are identified within the common bile duct. Cholelithiasis. The pancreas has normal precontrast signal, enhances normally and is without focal lesions. The visualized portions of the pancreatic duct are normal. The adrenals are normal. Kidneys: The visualized portions of the kidneys enhance symmetrically. There is no hydroureteronephrosis. There is no focal enhancing renal lesion. 0.8 cm cyst in the upper pole of the right kidney containing intrinsically T1 hyperintense material likely hemorrhagic in nature. Other: There is no ascites. There are no abnormal fluid collections. There is no lymphadenopathy. IMPRESSION: 1. Diffuse hepatic steatosis. 2. Scattered areas of hepatic signal dropout on out of phase images measuring up to 1.3 cm with subtle T2 hyperintensity, overall similar to prior study. Nonspecific but could reflect areas of focal fatty infiltration. Recommend continued attention on follow-up. Optics [facility] Transcribe Date/Time: Mar 15 2022 3:38P Dictated by : CHANTE ORTA MD This examination was interpreted and the report reviewed and electronically signed by: CHANTE ORTA MD on Mar 15 2022 4:18PM EST [id number] Normal [facility] CT ABD/PEL W IVCONon 022 Radiology Result ACTIONABLE Abnormal [facility] CT CHEST W IVCONon 2 [facility] Basophil percentageon 2021 Bilirubin [Mass/Vol] 0.20 mg/dL 0.20-1.00 [facility] Work Phone: [phone] Comment on above: For patients on eltr ombopag therapy, use of Dimension Capitola TBIL is not recommended. Cholesterol [Mass/Vol] 146 mg/dL <200 [facility] Work Phone: [phone] Comment on above: <200 mg/dL Desirable 200-240 mg/dL Borderline >240 mg/dL High Risk Protein [Mass/Vol] 7.4 g/dL 6.4-8.2 [facility] Work Phone: [phone] Triglyceride [Mass/Vol] 185 mg/dL [facility] Work Phone: [phone] Comment on above: The drugs N-Acetylcy steine and Metamizole may falsely depress this assay.Serum Triglycerides Reference Interval Normal <150 mg/dL Borderline high 150 - 199 mg/dL High 200 - 499 mg/dL Very High > or = 500 mg/dL Direct bilirubinon Bilirubin.direct [Mass/Vol] 0.09 mg/dL 0.00-0.30 [facility] Work Phone: [phone] Laboratory - Chemistry and C hemistry - challengeon 10-27-2021 ALP [Catalytic activity/Vol] 108 U/L 45-117 [facility] Work Phone: [phone] ALT [Catalytic activity/Vol] 33 U/L 16-61 [facility] Work Phone: [phone] Globulin (S) [Mass/Vol] 4.0 g/dL 2.2-4.2 [facility] Work Phone: [phone] Serum or plasma albumin isael urement (mass/volume)on 10-27-2021 Albumin [Mass/Vol] 3.4 g/dL 3.2-5.0 [facility] Work Phone: [phone] Serum or plasma cholesterol in HDL measurement (mass/volume)on 10-27-2021 Cholesterol in HDL [Mass/Vol] 33 mg/dL [facility] Work Phone: [phone] Comment on above: The drugs N-Acetylcy steine and Metamizole may falsely depress this assay. Reference Range HDL <40 mg/dL Low HDL Cholesterol HDL >or= 60 mg/dL High HDL Cholesterol Serum or plasma cholesterol in VLDL measurement (mass/volume)on 10-27-2021 Cholesterol in VLDL [Mass/Vol] 37 mg/dL 5-40 [facility] Work Phone: Serum or plasma low density lipoprotein (LDL) cholesterol measurement (mass/volume)on 10-27-2021 Cholesterol in LDL [Mass/Vol] 76 mg/dL 0-130 [facility] Work Phone: Thin prep Papanicolaou smear with manual screeningon 10-27-2021 Thin prep Papanicolaou smear with manual screening 31 U/L 15-37 [facility] Work Phone: Absolute lymphocyte counton 09-29-2021 Lymphocytes Auto (Unsp spec) [#/Vol] 0.51 10*3/uL 0.83-4.51 [facility] Work Phone: Basophil percentageon 2021 Basophils/100 WBC (Bld) 0.4 % 0-1 [facility] Work Phone: Eosinophils/100 WBC (Bld) 4.7 % 0-5 [facility] Work Phone: Neutrophils (Bld) [#/Vol] 3.7 10*3/uL 2.0-7.7 [facility] Work Phone: Neutrophils/100 WBC (Bld) 76.0 % 47-70 [facility] Work Phone: WBC (Bld) [#/Vol] 4.9 10*3/uL 4.4-11.0 [facility] Work Phone: Blood erythrocytes count (nu mber/volume)on 09-29-2021 RBC (Bld) [#/Vol] 3.92 10*6/uL 4.6-6.2 [facility] Work Phone: Blood hemoglobin measurement (mass/volume)on 09-29-2021 Hemoglobin (Bld) [Mass/Vol] 10.9 g/dL 13.0-16.5 [facility] Work Phone: Blood lymphocytes/100 leukoc yteson 09-29-2021 Lymphocytes/100 WBC (Bld) 10.5 % 19-41 [facility] Work Phone: [phone] Blood monocytes/100 leukocyt eson 09-29-2021 Monocytes/100 WBC (Bld) 8.2 % 0-10 [facility] Work Phone: [phone] Blood platelet mean volumeon 09-29-2021 Platelet mean volume (Bld) [Entitic vol] 9.7 fL 6.2-12.0 [facility] Work Phone: Determination of erythrocyte mean corpuscular volume (MCV)on 09-29-2021 MCV (RBC) [Entitic vol] 83.9 fL 80-94 [facility] Work Phone: [phone] Glucose Glucometer (BldC) [M ass/Vol]on 09-29-2021 Glucose [Mass/Vol] 204 mg/dL 70-110 [facility] Work Phone: Comment on above: MANAGEMENT OF PATIEN T CARE PER NURSING PROTOCOL Hematocrit Auto (Bld) [Volum e fraction]on 09-29-2021 Hematocrit (Bld) [Volume fraction] 32.9 % 40-54 [facility] Work Phone: Laboratory - Coagulationon 0 09-29-2021 aPTT Coag (Bld) [Time] 65.1 s 24.1-36.2 [facility] Work Phone: [phone] Laboratory - Hematology and Cell countson 09-29-2021 Erythrocyte distribution width (RBC) [Entitic vol] 44.1 fL 35.1-43.9 [facility] Work Phone: [phone] Erythrocyte distribution width (RBC) [Ratio] 14.6 % 11.6-14.6 [facility] Work Phone: [phone] Immature granulocytes/100 WBC (Bld) 0.200 % 0.0-0.9 [facility] Work Phone: [phone] Comment on above: IG% - Immature Granu locytes (promyelocytes, myelocytes and metamyelocytes) > 1% indicates that a LEFT SHIFT is Present. MCH (RBC) [Entitic mass] 27.8 pg 27.0-32.0 [facility] Work Phone: Nucleated RBC/100 WBC (Bld) [Ratio] 0 % 0-5 [facility] Work Phone: MCHC Auto (RBC) [Mass/Vol]on 09-29-2021 MCHC (RBC) [Mass/Vol] 33.1 g/dL 32-36 [facility] Work Phone: Platelets bldon 09-29-2021 Platelets (Bld) [#/Vol] 258 10*3/uL 150-450 [facility] Work Phone: Basophil percentageon 2021 Chloride [Moles/Vol] 100 mmol/L 98-107 [facility] Work Phone: Glucose [Mass/Vol] 335 mg/dL 74-106 [facility] Work Phone: [phone] Comment on above: Glucose result great er than or equal to 200 mg/dLsuggests DIABETES MELLITUS per A.D.A. criteria. Potassium [Moles/Vol] 3.7 mmol/L 3.5-5.1 [facility] Work Phone: Sodium [Moles/Vol] 136 mmol/L 136-145 [facility] Work Phone: Laboratory - Chemistry and C hemistry - challengeon 09-28-2021 CO2 [Moles/Vol] 30.0 mmol/L 21.0-32.0 [facility] Work Phone: Urea nitrogen/Creatinine [Mass ratio] 26.9 mg/mg 10-20 [facility] Work Phone: No Panel Informationon 09-28 Estimated Creatinine Clearance Calc 67.97 ml/min [facility] Work Phone: Estimated GFR (MDRD) Amer 93 mL/min >60 [facility] Work Phone: [phone] Comment on above: GFR Calc Estimated GFR (MDRD) Non-Af Amer 76 mL/min >60 [facility] Work Phone: Comment on above: Non- GFR Calc Serum or plasma calcium isael urement (mass/volume)on 09-28-2021 Calcium [Mass/Vol] 8.6 mg/dL 8.5-10.1 [facility] Work Phone: Serum or plasma creatinine m easurement (mass/volume)on 09-28-2021 Creatinine [Mass/Vol] 1.04 mg/dL 0.70-1.30 [facility] Work Phone: Comment on above: The validity of the calculated GFR & GFRAA in patients over 70 years has not been determined. Clinical correlation is essential. Serum or plasma urea nitroge n measurement (mass/volume)on 09-28-2021 Urea nitrogen [Mass/Vol] 28 mg/dL 7-18 [facility] Work Phone: Thin prep Papanicolaou smear with manual screeningon 09-28-2021 Thin prep Papanicolaou smear with manual screening 6 5-15 [facility] Work Phone: Laboratory - Microbiology an d Antimicrobial susceptibilityon 09-27-2021 SARS-CoV-2 (COVID-19) RNA ROBIN+probe Ql (Unsp spec) Not detected Not Detect [facility] Work Phone: Comment on above: Normal Reference Ran ge: Not DetectedMethod:(RT-PCR) real-time reverse transcriptase PCRLuminex DARRYL Instrument*The Food and Drug Administration (FDA) has issued an Emergency Use Authorization (EAU) for the DARRYL SARS-CoV-2 Assay for the rapid detection of the virus that causes COVID-19. This test has been validated, but the FDAs independent review of this validation is pending.*Negative results do not preclude infection and should not be used as the sole basis for treatment or patient management. Optimum specimen types and timing for peak viral levels during infections caused by SARS-CoV-2 have not been determined. Collection of multiple specimens from the same patient may be necessary to detect the virus. The possibility of a false negative result should be considered if the patient has clinical presentation or has had recent exposure. No Panel Informationon 09-27 Respiratory Panel (PCR) [facility] Work Phone: Vancomycin troughon 09-26-19 Vancomycin trough [Mass/Vol] 11.7 ug/mL 5.0-15.0 [facility] Work Phone: Comment on above: VANCOMYCIN STANDARED DRUG THERAPY TROUGH LEVEL: 5.0 - 15.0 mg/L VANCOMYCIN HIGH INTENSITY THERAPY TROUGH LEVEL: 15.0 - 20.0 mg/L High Intensity therapy recommended for serious lifethreatening infections include:- Owmohikkko-Xutkjpyubuhp-Rumgkbzls (Ventilator/Healtcare Associated)-Sepsis PLEASE CONTACT PHARMACY SERVICES (#8024) FOR INTERPRETATIONOF RESULTS. Base excesson 09-25-2021 Base excess Calc (BldV) [Moles/Vol] -4 mmol/L -2-2 [facility] Work Phone: Basophil percentageon 2021 Basophil percentage 19.6 mmol/L 22-26 [facility] Work Phone: Basophils/100 WBC (Bld) 89 % 95-99 [facility] Work Phone: CO2 (BldA) [Partial pressure ]on 09-25-2021 CO2 (Bld) [Partial pressure] 28.2 mm[Hg] 35-45 [facility] Work Phone: No Panel Informationon 09-25 Blood Gas Liter Flow 2.0 /min [facility] Work Phone: [phone] Blood Gas Sample Site R Radial [facility] Work Phone: [phone] Blood Gas Specimen Type ART [facility] Work Phone: [phone] Blood Gas Total CO2 21 mmol/L [facility] Work Phone: [phone] Oxygen Delivery Device Cannula [facility] Work Phone: [phone] Oxygen (BldA) [Partial press ure]on 09-25-2021 Oxygen (Bld) [Partial pressure] 52 mmHG 75-100 [facility] Work Phone: [phone] pH measurementon 09-25-2021 pH (Unsp spec) 7.45 [pH] 7.35-7.45 [facility] Work Phone: Assessment of wrist artery p atency prior to arterial punctureon 09-24-2021 Arterial patency Wrist artery --pre arterial puncture N/A [facility] Work Phone: Basophil percentageon 2021 Bilirubin [Mass/Vol] 0.30 mg/dL 0.20-1.00 [facility] Work Phone: Comment on above: For patients on eltr ombopag therapy, use of Dimension Capitola TBIL is not recommended. Protein [Mass/Vol] 6.7 g/dL 6.4-8.2 [facility] Work Phone: Basophil percentage >100 SEEN /hpf [facility] Work Phone: [phone] Ammonia (P) [Moles/Vol] 32.0 umol/L 11-32 [facility] Work Phone: Bilirubin Test strip Ql (U)o n 09-24-2021 Bilirubin Ql (U) Negative Negative [facility] Work Phone: [phone] Culture, urineon 09-24-2021 Bacteria identified Cx Nom (U) Presumptive E. coli [facility] Work Phone: Direct bilirubinon Bilirubin.direct [Mass/Vol] 0.11 mg/dL 0.00-0.30 [facility] Work Phone: [phone] INR in Blood by Coagulation assayon 09-24-2021 INR Coag (Bld) [Relative time] 1.1 {INR} [facility] Work Phone: [phone] Ketones Test strip Ql (U)on 09-24-2021 Ketones Ql (U) 5 mg/dl Negative [facility] Work Phone: Laboratory - Chemistry and C hemistry - challengeon 09-24-2021 ALP [Catalytic activity/Vol] 96 U/L 45-117 [facility] Work Phone: [phone] ALT [Catalytic activity/Vol] 44 U/L 16-61 [facility] Work Phone: Globulin (S) [Mass/Vol] 3.5 g/dL 2.2-4.2 [facility] Work Phone: Laboratory - Coagulationon 0 09-24-2021 PT Coag (PPP) [Time] 13.2 s 11.7-14.9 [facility] Work Phone: Laboratory - Microbiology an d Antimicrobial susceptibilityon 09-24-2021 Bacteria identified Cx Nom (Bld) No growth in 5 days. [facility] Work Phone: Mucus LM Ql (Urine sed)on Mucus Ql (Urine sed) 0 SEEN /hpf [facility] Work Phone: Nitrite Test strip Ql (U)on 09-24-2021 Nitrite Ql (U) Negative Negative [facility] Work Phone: No Panel Informationon 09-24 Troponin I High Sensitivity 16454 pg/mL 3.0-78.0 [facility] Work Phone: Comment on above: Please Note: New Jeny t Units and Gender Specific Reference Ranges. For more information see Policy Stat Procedure Capitola High Sensitivity Troponin (TNIH) and attachments. Protein Test strip Ql (U)on 09-24-2021 Protein Ql (U) 100 mg/dl Negative [facility] Work Phone: [phone] Serum or plasma albumin isael urement (mass/volume)on 09-24-2021 Albumin [Mass/Vol] 3.2 g/dL 3.2-5.0 [facility] Work Phone: Serum or plasma albumin/glob ulin mass ratioon 09-24-2021 Albumin/Globulin [Mass ratio] 0.9 {ratio} 0.9-2.4 [facility] Work Phone: [phone] Squamous epithelial cells de tection in urine sediment by light microscopyon 09-24-2021 Epithelial cells.squamous LM Ql (Urine sed) 0 SEEN /hpf [facility] Work Phone: [phone] Thin prep Papanicolaou smear with manual screeningon 09-24-2021 Thin prep Papanicolaou smear with manual screening 148 U/L 15-37 [facility] Work Phone: Urine blood detectionon 09-07 RBC Ql (U) 25 /ul Negative [facility] Work Phone: RBC Ql (U) 0 SEEN /hpf [facility] Work Phone: Urine clarityon 09-24-2021 Clarity (U) Sl. Cloudy Clear [facility] Work Phone: Urine color determinationon 09-24-2021 Color (U) Yellow Yellow [facility] Work Phone: Urine glucose detectionon Glucose Ql (U) 250 mg/dl Normal [facility] Work Phone: Urine leukocyte esterase det ection by dipstickon 09-24-2021 Leukocyte esterase Test strip Ql (U) 500 /ul Negative [facility] Work Phone: Urine pHon 09-24-2021 pH (U) 5.0 [pH] [facility] Work Phone: Urine sediment bacteria coun t by microscopy (number/high power field)on 09-24-2021 Bacteria LM.HPF (Urine sed) [#/Area] 4 /[HPF] None Seen [facility] Work Phone: Urine specific gravity measu rementon 09-24-2021 Specific gravity (U) [Rel density] 1.020 [facility] Work Phone: Urobilinogen Auto test strip Ql (U)on 09-24-2021 Urobilinogen Ql (U) Normal mg/dl Normal [facility] Work Phone: Absolute lymphocyte counton 09-23-2021 Lymphocytes Auto (Unsp spec) [#/Vol] 0.87 10*3/uL 0.83-4.51 [facility] Work Phone: Basophil percentageon 2021 Basophils/100 WBC (Bld) 0.2 % 0-1 [facility] Work Phone: Chloride [Moles/Vol] 100 mmol/L 98-107 [facility] Work Phone: Eosinophils/100 WBC (Bld) 1.4 % 0-5 [facility] Work Phone: Glucose [Mass/Vol] 241 mg/dL 74-106 [facility] Work Phone: Comment on above: Glucose result great er than or equal to 200 mg/dLsuggests DIABETES MELLITUS per A.D.A. criteria. Neutrophils (Bld) [#/Vol] 4.9 10*3/uL 2.0-7.7 [facility] Work Phone: Neutrophils/100 WBC (Bld) 76.5 % 47-70 [facility] [facility] Work Phone: Potassium [Moles/Vol] 4.1 mmol/L 3.5-5.1 [facility] Work Phone: Sodium [Moles/Vol] 136 mmol/L 136-145 [facility] Work Phone: WBC (Bld) [#/Vol] 6.4 10*3/uL 4.4-11.0 [facility] Work Phone: Blood erythrocytes count (nu mber/volume)on 09-23-2021 RBC (Bld) [#/Vol] 4.84 10*6/uL 4.6-6.2 [facility]: Blood hemoglobin measurement (mass/volume)on 09-23-2021 Hemoglobin (Bld) [Mass/Vol] 13.2 g/dL 13.0-16.5 [facility] Work Phone: Blood lymphocytes/100 leukoc yteson 09-23-2021 Lymphocytes/100 WBC (Bld) 13.7 % 19-41 [facility] Work Phone: Blood monocytes/100 leukocyt eson 09-23-2021 Monocytes/100 WBC (Bld) 8.0 % 0-10 [facility] Work Phone: [phone] Blood platelet mean volumeon 09-23-2021 Platelet mean volume (Bld) [Entitic vol] 9.4 fL 6.2-12.0 [facility] Work Phone: [phone] Determination of erythrocyte mean corpuscular volume (MCV)on 09-23-2021 MCV (RBC) [Entitic vol] 84.5 fL 80-94 [facility] Work Phone: [phone] Hematocrit Auto (Bld) [Volum e fraction]on 09-23-2021 Hematocrit (Bld) [Volume fraction] 40.9 % 40-54 [facility] Work Phone: [phone] Laboratory - Chemistry and C hemistry - challengeon 09-23-2021 CO2 [Moles/Vol] 30.0 mmol/L 21.0-32.0 [facility] Work Phone: [phone] Urea nitrogen/Creatinine [Mass ratio] 19.3 mg/mg 10-20 [facility] Work Phone: [phone] Laboratory - Hematology and Cell countson 09-23-2021 Erythrocyte distribution width (RBC) [Entitic vol] 44.2 fL 35.1-43.9 [facility] Work Phone: [phone] Erythrocyte distribution width (RBC) [Ratio] 14.5 % 11.6-14.6 [facility] Work Phone: [phone] Immature granulocytes/100 WBC (Bld) 0.200 % 0.0-0.9 [facility] Work Phone: [phone] Comment on above: IG% - Immature Granu locytes (promyelocytes, myelocytes and metamyelocytes) > 1% indicates that a LEFT SHIFT is Present. MCH (RBC) [Entitic mass] 27.3 pg 27.0-32.0 [facility] Work Phone: [phone] Nucleated RBC/100 WBC (Bld) [Ratio] 0 % 0-5 [facility] Work Phone: [phone] MCHC Auto (RBC) [Mass/Vol]on 09-23-2021 MCHC (RBC) [Mass/Vol] 32.3 g/dL 32-36 [facility] Work Phone: No Panel Informationon 09-23 SARS-CoV-2 Antigen (Rapid) [facility] Work Phone: Estimated Creatinine Clearance Calc 72.13 ml/min [facility] Work Phone: Estimated GFR (MDRD) Amer 99 mL/min >60 [facility] Work Phone: Comment on above: GFR Calc Estimated GFR (MDRD) Non-Af Amer 82 mL/min >60 [facility] Work Phone: Comment on above: Non- GFR Calc Troponin I High Sensitivity 14 pg/mL 3.0-78.0 [facility] Work Phone: Comment on above: Please Note: New Jeny t Units and Gender Specific Reference Ranges. For more information see Policy Stat Procedure [place] High Sensitivity Troponin (TNIH) and attachments. Platelets bldon 09-23-2021 Platelets (Bld) [#/Vol] 256 10*3/uL 150-450 [facility] Work Phone: Serum or plasma calcium isael urement (mass/volume)on 09-23-2021 Calcium [Mass/Vol] 9.4 mg/dL 8.5-10.1 [facility] Work Phone: Serum or plasma creatinine m easurement (mass/volume)on 09-23-2021 Creatinine [Mass/Vol] 0.98 mg/dL 0.70-1.30 [facility] Work Phone: Comment on above: The validity of the calculated GFR & GFRAA in patients over 70 years has not been determined. Clinical correlation is essential. Serum or plasma urea nitroge n measurement (mass/volume)on 09-23-2021 Urea nitrogen [Mass/Vol] 19 mg/dL 7-18 [facility] Work Phone: Thin prep Papanicolaou smear with manual screeningon 09-23-2021 Thin prep Papanicolaou smear with manual screening 6 5-15 [facility] Work Phone: Glucose Glucometer (BldC) [M ass/Vol]on 09-07-2021 Glucose [Mass/Vol] 115 mg/dL 70-110 [facility] Work Phone: Comment on above: MANAGEMENT OF PATIEN T CARE PER NURSING PROTOCOL Vital Signs Date Time Vital Sign Value Performing Clinician Facility 03-17-2025 07:49-0400 Body height 170.[address] Kendy Modi MD Work Phone: [facility] 03-17-2025 07:49-0400 Body mass index (BMI) [Ratio] 19.7 kg/m2 Dr. Kendy Modi MD Work Phone: [facility] 03-17-2025 07:49-0400 Body weight 57.[address] Kendy Modi MD Work Phone: [facility] 03-17-2025 07:49-0400 Diastolic blood pressure 87 mm[Hg] Dr. Kendy Modi MD Work Phone: [facility] 03-17-2025 07:49-0400 Heart rate 93 /min Dr. Kendy Modi MD Work Phone: 5(447)009-736674 [place] [address] 03-17-2025 07:49-0400 Respiratory rate 18 /min Dr. Kendy Modi MD Work Phone: [facility] 03-17-2025 07:49-0400 SaO2% (BldA) [Mass fraction] 96 % Dr. Kendy Modi MD Work Phone: [facility] 03-17-2025 07:49-0400 Systolic blood pressure 135 mm[Hg] Dr. Kendy Modi MD Work Phone: [facility] 12-09-2024 07:30-0400 Body mass index (BMI) [Ratio] 21.1 kg/m2 Dr. Kendy Modi MD Work Phone: [facility] 12-09-2024 07:30-0400 Body weight 61.[address] Kendy Modi MD Work Phone: [facility] 12-09-2024 07:30-0400 Diastolic blood pressure 65 mm[Hg] Dr. Kendy Modi MD Work Phone: [facility] 12-09-2024 07:30-0400 Heart rate 71 /min Dr. Kendy Modi MD Work Phone: [facility] 12-09-2024 07:30-0400 Respiratory rate 18 /min Dr. Kendy Modi MD Work Phone: [facility] 12-09-2024 07:30-0400 Systolic blood pressure 110 mm[Hg] Dr. Kendy Modi MD Work Phone: [facility] 12-03-2024 08:00-0400 Diastolic blood pressure 61 mm[Hg] Dr. Kendy Modi MD Work Phone: [facility] 12-03-2024 08:00-0400 Heart rate 68 /min Dr. Kendy Modi MD Work Phone: [facility] 12-03-2024 08:00-0400 Respiratory rate 14 /min Dr. Kendy Modi MD Work Phone: [facility] 12-03-2024 08:00-0400 SaO2% (BldA) [Mass fraction] 97 % Dr. Kendy Modi MD Work Phone: [facility] 12-03-2024 08:00-0400 Systolic blood pressure 127 mm[Hg] Dr. Kendy Modi MD Work Phone: [facility] 12-03-2024 05:03-0400 Body temperature 98.1 [degF] Dr. Kendy Modi MD Work Phone: [facility] 12-02-2024 22:59-0400 Body mass index (BMI) [Ratio] 23.2 kg/m2 Dr. Kendy Modi MD Work Phone: [facility] 12-02-2024 22:59-0400 Body weight 67.[address] Kendy Modi MD Work Phone: [facility] 11-28-2024 14:58-0400 Body temperature 97.7 [degF] Dr. Kendy Modi MD Work Phone: [facility] 11-28-2024 14:58-0400 Diastolic blood pressure 59 mm[Hg] Dr. Kendy Modi MD Work Phone: [facility] 11-28-2024 14:58-0400 Heart rate 77 /min Dr. Kendy Modi MD Work Phone: [facility] 11-28-2024 14:58-0400 Respiratory rate 17 /min Dr. Kendy oMdi MD Work Phone: 9(281)241-624[address] [place] [address] 11-28-2024 14:58-0400 SaO2% (BldA) [Mass fraction] 99 % Dr. Kendy Modi MD Work Phone: 2(619)095-103074 [place] [address] 11-28-2024 14:58-0400 Systolic blood pressure 94 mm[Hg] Dr. Kendy Modi MD Work Phone: [facility] 11-28-2024 03:15-0400 Body mass index (BMI) [Ratio] 21.4 kg/m2 Dr. Kendy Modi MD Work Phone: 3(824)892-572274 [place] [address] 11-28-2024 03:15-0400 Body weight 62.[address] Kendy Modi MD Work Phone: 4(463)047-055674 [place] [address] 11-25-2024 09:53-0400 Body height 170.[address] Kendy Modi MD Work Phone: [facility] 11-25-2024 08:55-0400 Body temperature 97.9 [degF] Dr. Kendy Modi MD Work Phone: [facility] 11-25-2024 08:55-0400 Diastolic blood pressure 64 mm[Hg] Dr. Kendy Modi MD Work Phone: [facility] 11-25-2024 08:55-0400 Heart rate 79 /min Dr. Kendy Modi MD Work Phone: [facility] 11-25-2024 08:55-0400 Respiratory rate 14 /min Dr. Kendy Modi MD Work Phone: [facility] 11-25-2024 08:55-0400 SaO2% (BldA) [Mass fraction] 99 % Dr. Kendy Modi MD Work Phone: [facility] 11-25-2024 08:55-0400 Systolic blood pressure 125 mm[Hg] Dr. Kendy Modi MD Work Phone: [facility] 11-25-2024 05:17-0400 Body mass index (BMI) [Ratio] 21 kg/m2 Dr. Kendy Modi MD Work Phone: [facility] 11-25-2024 05:17-0400 Body weight 60.[address] Kendy Modi MD Work Phone: 4(533)208-140810 [place] [address] 11-24-2024 23:13-0400 Body height 170.[address] Kendy Modi MD Work Phone: [facility] 11-24-2024 23:04-0400 Body temperature 98.3 [degF] Dr. Kendy Modi MD Work Phone: [facility] 11-24-2024 23:04-0400 Diastolic blood pressure 59 mm[Hg] Dr. Kendy Modi MD Work Phone: [facility] 11-24-2024 23:04-0400 Heart rate 81 /min Dr. Kendy Modi MD Work Phone: [facility] 11-24-2024 23:04-0400 Respiratory rate 14 /min Dr. Kendy Modi MD Work Phone: [facility] 11-24-2024 23:04-0400 SaO2% (BldA) [Mass fraction] 98 % Dr. Kendy Modi MD Work Phone: [facility] 11-24-2024 23:04-0400 Systolic blood pressure 135 mm[Hg] Dr. Kendy Modi MD Work Phone: [facility] 11-24-2024 20:09-0400 Body mass index (BMI) [Ratio] 21.3 kg/m2 Dr. Kendy Modi MD Work Phone: 5(045)230-281974 [place] [address] 11-24-2024 20:09-0400 Body weight 61.[address] Kendy Modi MD Work Phone: 1(259)619-176510 [place] [address] 11-24-2024 19:16-0400 Body height 170.[address] Kendy Modi MD Work Phone: 1(508)135-490210 [place] [address] 10-30-2024 14:16-0400 Body mass index (BMI) [Ratio] 20.3 kg/m2 Dr. Kendy Modi MD Work Phone: 3(568)280-149110 [place] [address] 10-30-2024 14:16-0400 Body weight 58.[address] Kendy Modi MD Work Phone: 5(927)016-260810 [place] [address] 10-30-2024 14:16-0400 Diastolic blood pressure 61 mm[Hg] Dr. Kendy Modi MD Work Phone: 3(395)456-741510 [place] [address] 10-30-2024 14:16-0400 Heart rate 90 /min Dr. Kendy Modi MD Work Phone: 3(478)679-846710 [place] [address] 10-30-2024 14:16-0400 Respiratory rate 16 /min Dr. Kendy Modi MD Work Phone: 3(459)832-185110 [place] [address] 10-30-2024 14:16-0400 SaO2% (BldA) [Mass fraction] 95 % Dr. Kendy Modi MD Work Phone: 1(077)788-971174 [place] [address] 10-30-2024 14:16-0400 Systolic blood pressure 94 mm[Hg] Dr. Kendy Modi MD Work Phone: 8(168)095-454710 [place] [address] 10-18-2024 14:04-0400 Body temperature 97.6 [degF] Dr. Kendy Modi MD Work Phone: 1(764)114-888110 [place] [address] 10-18-2024 14:04-0400 Diastolic blood pressure 71 mm[Hg] Dr. Kendy Modi MD Work Phone: 6(192)222-746374 [place] [address] 10-18-2024 14:04-0400 Heart rate 83 /min Dr. Kendy Modi MD Work Phone: 9(224)147-770810 [place] [address] 10-18-2024 14:04-0400 Respiratory rate 16 /min Dr. Kendy Modi MD Work Phone: 5(376)551-678610 [place] [address] 10-18-2024 14:04-0400 SaO2% (BldA) [Mass fraction] 94 % Dr. Kendy Modi MD Work Phone: 7(614)382-447410 [place] [address] 10-18-2024 14:04-0400 Systolic blood pressure 120 mm[Hg] Dr. Kendy Modi MD Work Phone: 7(902)466-725910 [place] [address] 10-18-2024 02:36-0400 Inhaled oxygen concentration 30 % Dr. Kendy Modi MD Work Phone: 7(239)682-634010 [place] [address] 10-17-2024 07:37-0400 Inhaled oxygen flow rate 5 L/min Dr. Kendy Modi MD Work Phone: 5(609)967-721310 [place] [address] 10-17-2024 06:00-0400 Body mass index (BMI) [Ratio] 23.5 kg/m2 Dr. Kendy Modi MD Work Phone: 0(956)244-083410 [place] [address] 10-17-2024 06:00-0400 Body weight 68.[address] Kendy Modi MD Work Phone: 6(009)868-621710 [place] [address] 10-16-2024 16:08-0400 Body height 170.[address] Kendy Modi MD Work Phone: 3(534)234-840010 [place] [address] 08-28-2024 10:27-0500 Body temperature 97.8 [degF] Dr. Kendy Modi MD Work Phone: 4(875)014-202610 [place] [address] 08-28-2024 10:27-0500 Diastolic blood pressure 66 mm[Hg] Dr. Kendy Modi MD Work Phone: 3(724)465-414010 [place] [address] 08-28-2024 10:27-0500 Heart rate 74 /min Dr. Kendy Modi MD Work Phone: [facility] 08-28-2024 10:27-0500 Respiratory rate 16 /min Dr. Knedy Modi MD Work Phone: [facility] 08-28-2024 10:27-0500 SaO2% (BldA) [Mass fraction] 95 % Dr. Kendy Modi MD Work Phone: [facility] 08-28-2024 10:27-0500 Systolic blood pressure 160 mm[Hg] Dr. Kendy Modi MD Work Phone: [facility] 08-28-2024 05:59-0500 Body mass index (BMI) [Ratio] 22.8 kg/m2 Dr. Kendy Modi MD Work Phone: [facility] 08-28-2024 05:59-0500 Body weight [address] Kendy Modi MD Work Phone: [facility] 06-04-2024 14:46-0400 Body height 168.9 cm Melanie Yang CREDIT CONSULTANT.CLOUD DEVELOPER Work Phone: [facility] 06-04-2024 14:46-0400 Body mass index (BMI) [Ratio] 22.58 kg/m2 Melaniebertha Yang CREDIT CONSULTANT.CLOUD DEVELOPER Work Phone: [facility] 06-04-2024 14:46-0400 Body weight 64.41 kg Melaine Yang CREDIT CONSULTANT.CLOUD DEVELOPER Work Phone: [facility] 06-04-2024 13:33-0400 Body height 168.9 cm Forest Kimble MD Work Phone: [facility] 06-04-2024 13:33-0400 Body mass index (BMI) [Ratio] 22.68 kg/m2 Forest Kimble MD Work Phone: [facility] 06-04-2024 13:33-0400 Body weight 64.7 kg Forest Kimble MD Work Phone: [facility] 06-04-2024 13:33-0400 Diastolic blood pressure 65 mm[Hg] Forest Kimble MD Work Phone: [facility] 06-04-2024 13:33-0400 Heart rate 78 /min Forest Kimble MD Work Phone: [facility] 06-04-2024 13:33-0400 Systolic blood pressure 147 mm[Hg] Forest Kimble MD Work Phone: [facility] 05-31-2024 09:34-0400 Body height 170.2 cm Pebbles Barfield MD Work Phone: [facility] 05-31-2024 09:34-0400 Body mass index (BMI) [Ratio] 17.23 kg/m2 Pebbles Barfield MD Work Phone: [facility] 05-31-2024 09:34-0400 Body weight 49.9 kg Pebbles Barfield MD Work Phone: [facility] 05-31-2024 09:34-0400 Diastolic blood pressure 68 mm[Hg] Pebbles Barfield MD Work Phone: [facility] 05-31-2024 09:34-0400 Heart rate 76 /min Pebbles Barfield MD Work Phone: [facility] 05-31-2024 09:34-0400 Respiratory rate 20 /min Pebbles Barfield MD Work Phone: [facility] 05-31-2024 09:34-0400 Systolic blood pressure 121 mm[Hg] Pebbles Barfield MD Work Phone: [facility] 03-11-2024 09:18-0400 Body mass index (BMI) [Ratio] 17.43 kg/m2 Kenzie Drew APRN.CNP, DNP Work Phone: [facility] 03-11-2024 09:18-0400 Body weight 48.99 kg Kenzie Drew APRN.CNP, DNP Work Phone: [facility] 12-02-2023 02:29-0400 Body temperature 97.1 [degF] Dr. Kendy Modi Work Phone: [facility] 12-02-2023 02:29-0400 Diastolic blood pressure 62 mm[Hg] Dr. Kendy Modi Work Phone: [facility] 12-02-2023 02:29-0400 Heart rate 75 /min Dr. Kendy Modi Work Phone: [facility] 12-02-2023 02:29-0400 Respiratory rate 16 /min Dr. Kendy Modi Work Phone: [facility] 12-02-2023 02:29-0400 SaO2% (BldA) [Mass fraction] 91 % Dr. Kendy Modi Work Phone: [facility] 12-02-2023 02:29-0400 Systolic blood pressure 132 mm[Hg] Dr. Kendy Modi Work Phone: [facility] 12-01-2023 16:42-0400 Body mass index (BMI) [Ratio] 21.4 kg/m2 Dr. Kendy Modi Work Phone: [facility] 12-01-2023 16:42-0400 Body weight 60.[address] Kendy Modi Work Phone: [facility] 12-01-2023 16:39-0400 Body height 167.[address] Kendy Modi Work Phone: [facility] 11-29-2023 14:16-0400 Body temperature 98.3 [degF] Dr. Kendy Moid Work Phone: [facility] 11-29-2023 14:16-0400 Diastolic blood pressure 88 mm[Hg] Dr. Kendy Modi Work Phone: [facility] 11-29-2023 14:16-0400 Heart rate 88 /min Dr. Kendy Modi Work Phone: [facility] 11-29-2023 14:16-0400 Respiratory rate 18 /min Dr. Kendy Modi Work Phone: [facility] 11-29-2023 14:16-0400 SaO2% (BldA) [Mass fraction] 97 % Dr. Kendy Modi Work Phone: [facility] 11-29-2023 14:16-0400 Systolic blood pressure 156 mm[Hg] Dr. Kendy Modi Work Phone: [facility] 11-29-2023 11:27-0400 Body height 167.[address] Kendy Modi Work Phone: [facility] 11-29-2023 11:27-0400 Body mass index (BMI) [Ratio] 23.8 kg/m2 Dr. Kendy Modi Work Phone: [facility] 11-29-2023 11:27-0400 Body weight 67.[address] Kendy Modi Work Phone: [facility] 11-28-2023 10:58-0400 Body temperature 98.8 [degF] Dalton Mandujano MD Work Phone: [facility] 11-28-2023 10:58-0400 Diastolic blood pressure 63 mm[Hg] Dalton Mandujano MD Work Phone: [facility] 11-28-2023 10:58-0400 Heart rate 68 /min Dalton Mandujano MD Work Phone: [facility] 11-28-2023 10:58-0400 Respiratory rate 17 /min Dalton Mandujano MD Work Phone: [facility] 11-28-2023 10:58-0400 SaO2% (BldA) [Mass fraction] 98 % Dalton Mandujano MD Work Phone: [facility] 11-28-2023 10:58-0400 Systolic blood pressure 139 mm[Hg] Dalton Mandujano MD Work Phone: [facility] 11-28-2023 07:49-0400 Body height 167.6 cm Dalton Mandujano MD Work Phone: [facility] 11-28-2023 07:49-0400 Body mass index (BMI) [Ratio] 20.64 kg/m2 Dalton Mandujano MD Work Phone: [facility] 11-28-2023 07:49-0400 Body weight 58 kg Dalton Mandujano MD Work Phone: [facility] 11-12-2023 00:00-0400 Diastolic blood pressure 98 mm[Hg] Dr. Kendy Modi Work Phone: [facility] 11-12-2023 00:00-0400 Heart rate 78 /min Dr. Kendy Modi Work Phone: [facility] 11-12-2023 00:00-0400 Respiratory rate 16 /min Dr. Kendy Modi Work Phone: [facility] 11-12-2023 00:00-0400 SaO2% (BldA) [Mass fraction] 94 % Dr. Kendy Modi Work Phone: [facility] 11-12-2023 00:00-0400 Systolic blood pressure 178 mm[Hg] Dr. Kendy Modi Work Phone: [facility] 2023 23:42-0400 Body temperature 97.9 [degF] Dr. Kendy Modi Work Phone: [facility] 2023 21:23-0400 Body height 170.[address] Kendy Modi Work Phone: [facility] 2023 21:23-0400 Body mass index (BMI) [Ratio] 23.9 kg/m2 Dr. Kendy Modi Work Phone: [facility] 2023 21:23-0400 Body weight 69.[address] Kendy Modi Work Phone: [facility] 09-07-2023 14:31-0500 Body height 170.[address] Kendy Modi Work Phone: [facility] 09-07-2023 14:31-0500 Body mass index (BMI) [Ratio] 23.1 kg/m2 Dr. Kendy Modi Work Phone: [facility] 09-07-2023 14:31-0500 Body weight 67.[address] Kendy Modi Work Phone: [facility] 09-07-2023 14:31-0500 Diastolic blood pressure 91 mm[Hg] Dr. Kendy Modi Work Phone: [facility] 09-07-2023 14:31-0500 Heart rate 87 /min Dr. Kendy Modi Work Phone: [facility] 09-07-2023 14:31-0500 Respiratory rate 16 /min Dr. Kendy Modi Work Phone: [facility] 09-07-2023 14:31-0500 Systolic blood pressure 163 mm[Hg] Dr. Kendy Modi Work Phone: [facility] 07-19-2023 11:34-0500 Body height 170.2 cm Angeli Gasior DO Work Phone: [facility] 07-19-2023 11:34-0500 Body mass index (BMI) [Ratio] 23.18 kg/m2 Angeli Gasior DO Work Phone: [facility] 07-19-2023 11:34-0500 Body weight 67.13 kg Angeli Gasior DO Work Phone: [facility] 07-19-2023 11:34-0500 Diastolic blood pressure 61 mm[Hg] Angeli Gasior DO Work Phone: [facility] 07-19-2023 11:34-0500 Heart rate 79 /min Angeli Gasior DO Work Phone: [facility] 07-19-2023 11:34-0500 Systolic blood pressure 137 mm[Hg] Angeli Gasior DO Work Phone: [facility] 06-21-2023 14:08-0500 Body height 167.6 cm Everardo Yusuf CREDIT CONSULTANT.CLOUD DEVELOPER Work Phone: [facility] 06-21-2023 14:08-0500 Body temperature 98.2 [degF] Everardo Yusuf CREDIT CONSULTANT.CLOUD DEVELOPER Work Phone: [facility] 06-21-2023 14:08-0500 Body weight 65.55 kg Everardo Yusuf CREDIT CONSULTANT.CLOUD DEVELOPER Work Phone: [facility] 06-21-2023 14:08-0500 Diastolic blood pressure 75 mm[Hg] Everardo Yusuf CREDIT CONSULTANT.CLOUD DEVELOPER Work Phone: [facility] 06-21-2023 14:08-0500 Heart rate 79 /min Everardo Yusuf CREDIT CONSULTANT.CLOUD DEVELOPER Work Phone: [facility] 06-21-2023 14:08-0500 Respiratory rate 16 /min Everardo Yusuf CREDIT CONSULTANT.CLOUD DEVELOPER Work Phone: [facility] 06-21-2023 14:08-0500 SaO2% (BldA) [Mass fraction] 97 % Everardo Yusuf CREDIT CONSULTANT.CLOUD DEVELOPER Work Phone: [facility] 06-21-2023 14:08-0500 Systolic blood pressure 132 mm[Hg] Everardo Yusuf CREDIT CONSULTANT.CLOUD DEVELOPER Work Phone: [facility] 05-24-2023 10:50-0400 Body height 170.2 cm Angeli Gasior DO Work Phone: [facility] 05-24-2023 10:50-0400 Body mass index (BMI) [Ratio] 22.74 kg/m2 Angeli Gasior DO Work Phone: [facility] 05-24-2023 10:50-0400 Body weight 65.86 kg Angeli Gasior DO Work Phone: [facility] 05-24-2023 10:50-0400 Diastolic blood pressure 58 mm[Hg] Angeli Gasior DO Work Phone: [facility] 05-24-2023 10:50-0400 Heart rate 82 /min Angeli Gasior DO Work Phone: [facility] 05-24-2023 10:50-0400 Systolic blood pressure 101 mm[Hg] Angeli Gasior DO Work Phone: [facility] 03-12-2023 15:00-0400 Body temperature 97.6 [degF] Dr. Kendy Modi Work Phone: [facility] 03-12-2023 15:00-0400 Diastolic blood pressure 73 mm[Hg] Dr. Kendy Modi Work Phone: [facility] 03-12-2023 15:00-0400 Heart rate 73 /min Dr. Kendy Modi Work Phone: [facility] 03-12-2023 15:00-0400 Respiratory rate 16 /min Dr. Kendy Modi Work Phone: [facility] 03-12-2023 15:00-0400 SaO2% (BldA) [Mass fraction] 98 % Dr. Kendy Modi Work Phone: [facility] 03-12-2023 15:00-0400 Systolic blood pressure 122 mm[Hg] Dr. Kendy Modi Work Phone: [facility] 03-12-2023 06:00-0400 Body mass index (BMI) [Ratio] 24.1 kg/m2 Dr. Kendy Modi Work Phone: [facility] 03-12-2023 06:00-0400 Body weight 69.[address] Kendy Modi Work Phone: [facility] 03-10-2023 18:03-0400 Body height 170.[address] Kendy Modi Work Phone: [facility] 03-10-2023 16:47-0400 Body temperature 97.5 [degF] Dr. Kendy Modi Work Phone: [facility] 03-10-2023 16:47-0400 Diastolic blood pressure 58 mm[Hg] Dr. Kendy Modi Work Phone: [phone] [place] [address] 03-10-2023 16:47-0400 Heart rate 74 /min Dr. Kendy Modi Work Phone: [facility] 03-10-2023 16:47-0400 Respiratory rate 17 /min Dr. Kendy Modi Work Phone: [phone] [address] 03-10-2023 16:47-0400 SaO2% (BldA) [Mass fraction] 95 % Dr. Kendy Modi Work Phone: [facility] 03-10-2023 16:47-0400 Systolic blood pressure 123 mm[Hg] Dr. Kendy Modi Work Phone: [facility] 03-10-2023 12:01-0400 Body mass index (BMI) [Ratio] 24.5 kg/m2 Dr. Kendy Modi Work Phone: [facility] 03-10-2023 12:01-0400 Body weight 70.[address] Kendy Modi Work Phone: [phone] [place] [address] 03-10-2023 11:53-0400 Body height 170.[address] Kendy Modi Work Phone: [facility] 01-23-2023 15:43-0400 Body mass index (BMI) [Ratio] 23.8 kg/m2 Dr. Kendy Modi Work Phone: [facility] 01-23-2023 15:43-0400 Body weight 69.[address] Kendy Modi Work Phone: [facility] 01-23-2023 15:43-0400 Diastolic blood pressure 83 mm[Hg] Dr. Kendy Modi Work Phone: [facility] 01-23-2023 15:43-0400 Heart rate 79 /min Dr. Kendy Modi Work Phone: [facility] 01-23-2023 15:43-0400 Respiratory rate 16 /min Dr. Kendy Modi Work Phone: [facility] 01-23-2023 15:43-0400 Systolic blood pressure 153 mm[Hg] Dr. Kendy Modi Work Phone: [facility] 07-15-2022 13:00-0500 Body height 170.[address] Kendy Modi Work Phone: [facility] 07-15-2022 13:00-0500 Body mass index (BMI) [Ratio] 24.5 kg/m2 Dr. Kendy Modi Work Phone: [facility] 07-15-2022 13:00-0500 Body weight 70.[address] Kendy Modi Work Phone: [facility] 07-15-2022 13:00-0500 Diastolic blood pressure 60 mm[Hg] Dr. Kendy Modi Work Phone: [facility] 07-15-2022 13:00-0500 Heart rate 80 /min Dr. Kendy Mdoi Work Phone: [facility] 07-15-2022 13:00-0500 Respiratory rate 18 /min Dr. Kendy Modi Work Phone: [facility] 07-15-2022 13:00-0500 Systolic blood pressure 110 mm[Hg] Dr. Kendy Modi Work Phone: [facility] 05-11-2022 08:41-0400 Body height 170.2 cm RAVEN Galarza MD Work Phone: [facility] 05-11-2022 08:41-0400 Body weight 70.94 kg RAVEN Galarza MD Work Phone: [facility] 12-13-2021 14:15-0400 Body temperature 98.1 [degF] Everardo Yusuf CREDIT CONSULTANT.CLOUD DEVELOPER Work Phone: [facility] 12-13-2021 14:15-0400 Body weight 68.49 kg Everardo Yusuf CREDIT CONSULTANT.CLOUD DEVELOPER Work Phone: [facility] 12-13-2021 14:15-0400 Diastolic blood pressure 83 mm[Hg] Everardo Yusuf CREDIT CONSULTANT.CLOUD DEVELOPER Work Phone: [facility] 12-13-2021 14:15-0400 Heart rate 79 /min Everardo Yusuf CREDIT CONSULTANT.CLOUD DEVELOPER Work Phone: [facility] 12-13-2021 14:15-0400 Systolic blood pressure 144 mm[Hg] Everardo Yusuf CREDIT CONSULTANT.CLOUD DEVELOPER Work Phone: [facility] 10-15-2021 09:32-0500 Body height 170.[address] Kendy Modi Work Phone: [facility] Work Phone: 10-15-2021 09:32-0500 Body mass index (BMI) [Ratio] 23.1 kg/m2 Dr. Kendy Modi Work Phone: [facility] Work Phone: 10-15-2021 09:32-0500 Body weight 67.[address] Kendy Modi Work Phone: [facility] Work Phone: 10-15-2021 09:32-0500 Diastolic blood pressure 74 mm[Hg] Dr. Kendy Modi Work Phone: [facility] Work Phone: 10-15-2021 09:32-0500 Heart rate 86 /min Dr. Kendy Modi Work Phone: [facility] Work Phone: 10-15-2021 09:32-0500 Respiratory rate 18 /min Dr. Kendy Modi Work Phone: [facility] Work Phone: 10-15-2021 09:32-0500 SaO2% (BldA) [Mass fraction] 96 % Dr. Kendy Modi Work Phone: [facility] Work Phone: 10-15-2021 09:32-0500 Systolic blood pressure 125 mm[Hg] Dr. Kendy Modi Work Phone: [facility] Work Phone: 09-29-2021 14:25-0500 Body temperature 98.3 [degF] Dr. Kendy Modi Work Phone: [facility] Work Phone: 09-29-2021 14:25-0500 Diastolic blood pressure 64 mm[Hg] Dr. Kendy Modi Work Phone: [facility] Work Phone: 09-29-2021 14:25-0500 Heart rate 72 /min Dr. Kendy Modi Work Phone: [facility] Work Phone: 09-29-2021 14:25-0500 Respiratory rate 18 /min Dr. Kendy Modi Work Phone: [facility] Work Phone: 09-29-2021 14:25-0500 SaO2% (BldA) [Mass fraction] 96 % Dr. Kendy Modi Work Phone: [facility] Work Phone: 09-29-2021 14:25-0500 Systolic blood pressure 125 mm[Hg] Dr. Kendy Modi Work Phone: [facility] Work Phone: 09-29-2021 14:00-0500 Inhaled oxygen concentration 50 % Dr. Kendy Modi Work Phone: [facility] Work Phone: 09-29-2021 04:52-0500 Body weight 68.[address] Kendy Modi Work Phone: [facility] Work Phone: 09-24-2021 04:30-0500 Body mass index (BMI) [Ratio] 24.3 kg/m2 Dr. Kendy Modi Work Phone: [facility] Work Phone: 09-23-2021 13:11-0500 Body temperature 99.4 [degF] Dr. Kendy Modi Work Phone: [facility] Work Phone: 09-23-2021 13:11-0500 Diastolic blood pressure 66 mm[Hg] Dr. Kendy Modi Work Phone: [facility] Work Phone: 09-23-2021 13:11-0500 Heart rate 109 /min Dr. Kendy Modi Work Phone: [facility] Work Phone: 09-23-2021 13:11-0500 Respiratory rate 16 /min Dr. Kendy Modi Work Phone: [facility] Work Phone: 09-23-2021 13:11-0500 SaO2% (BldA) [Mass fraction] 98 % Dr. Kendy Modi Work Phone: [facility] Work Phone: 09-23-2021 13:11-0500 Systolic blood pressure 140 mm[Hg] Dr. Kendy Modi Work Phone: [facility] Work Phone: 09-23-2021 09:15-0500 Body mass index (BMI) [Ratio] 24.7 kg/m2 Dr. Kendy Modi Work Phone: [facility] Work Phone: 09-23-2021 09:15-0500 Body weight 71.[address] Kendy Modi Work Phone: [facility] Work Phone: 09-07-2021 13:31-0500 Body temperature 98.5 [degF] Dr. Kendy Modi Work Phone: [facility] Work Phone: 09-07-2021 13:31-0500 Diastolic blood pressure 80 mm[Hg] Dr. Kendy Modi Work Phone: [facility] Work Phone: 09-07-2021 13:31-0500 Heart rate 80 /min Dr. Kendy Modi Work Phone: [facility] Work Phone: 09-07-2021 13:31-0500 Respiratory rate 18 /min Dr. Kendy Modi Work Phone: [facility] Work Phone: 09-07-2021 13:31-0500 SaO2% (BldA) [Mass fraction] 94 % Dr. Kendy Modi Work Phone: [facility] Work Phone: 09-07-2021 13:31-0500 Systolic blood pressure 152 mm[Hg] Dr. Kendy Modi Work Phone: [facility] Work Phone: 09-07-2021 09:06-0500 Body mass index (BMI) [Ratio] 23.4 kg/m2 Dr. Kendy Modi Work Phone: [facility] Work Phone: 09-07-2021 09:06-0500 Body weight [address] Kendy Modi Work Phone: [facility] Work Phone: 07-23-2021 13:05-0500 Body mass index (BMI) [Ratio] 23 kg/m2 Dr. Kendy Modi Work Phone: [facility] Work Phone: 07-23-2021 13:05-0500 Body temperature 98.3 [degF] Dr. Kendy Modi Work Phone: [facility] Work Phone: 07-23-2021 13:05-0500 Body weight 66.[address] Kendy Modi Work Phone: [facility] Work Phone: 07-23-2021 13:05-0500 Diastolic blood pressure 81 mm[Hg] Dr. Kendy Modi Work Phone: [facility] Work Phone: 07-23-2021 13:05-0500 Heart rate 94 /min Dr. Kendy Modi Work Phone: [facility] Work Phone: 07-23-2021 13:05-0500 Respiratory rate 18 /min Dr. Kendy Modi Work Phone: [facility] Work Phone: 07-23-2021 13:05-0500 SaO2% (BldA) [Mass fraction] 95 % Dr. Kendy Modi Work Phone: [facility] Work Phone: 07-23-2021 13:05-0500 Systolic blood pressure 195 mm[Hg] Dr. Kendy Modi Work Phone: [facility] Work Phone: Encounters Encounter Date Encounter Type Care Provider Facility Start: 04-14-2025 ambulatory Tereza Brito NP Facili ty:[facility] Start: 03-17-2025 End: 03-17-2025 Patient encounter procedure Tereza Brito AIRLINE STATION AGENT-C -[facility] Work Phone: Start: 03-17-2025 End: 03-17-[address] Kendy Modi MD Work Phone: -[facility] Start: 03-17-2025 End: 03-17-2025 ambulatory Tereza Brito NP Facility:[facility] Start: 12-31-2024 End: 12-31-2024 Office outpatient visit 15 minutes Batool Au CREDIT CONSULTANT.CLOUD DEVELOPER Work Phone: Urology Comment on above: Suprapubic catheter (HCC) (Primary Dx); Chronic retention of urine; Type 2 diabetes mellitus with hyperglycemia, with long-term current use of insulin (HCC) Start: 12-31-2024 End: 12-31-2024 ambulatory BATOOL AU Facility:[facility] Start: 12-11-2024 End: 12-11-2024 Orders Only Serena Arnett MD Work Phone: External-[facility] Comment on above: Hyperkalemia Start: 12-09-2024 End: 12-09-2024 Patient encounter procedure Tereza Brito AIRLINE STATION AGENT- -[facility] Work Phone: Start: 12-09-2024 End: 12-09-2024 ambulatory Tereza Brito NP Facility:[facility] Start: 12-04-2024 ambulatory Dwayne Aldana Facility:[facility] Start: 12-02-2024 End: 12-03-2024 Emergency department patient visit Ross Crump DO -Emergency Department Work Phone: Start: 11-28-2024 Non-patient / Non-visit Dr. Miguel Angel [facility] Work Phone: Start: 11-28-2024 Dr. Miguel Angel [facility] Work Phone: Start: 11-27-2024 Non-patient / Non-visit Dr. Miguel Angel [facility] Work Phone: Start: 11-27-2024 Dr. Miguel Angel [facility] Work Phone: Start: 11-26-2024 Non-patient / Non-visit Dr. Miguel Angel [facility] Work Phone: Start: 11-26-2024 Dr. Miguel Angel [facility] Work Phone: Start: 11-26-2024 ambulatory Kendy Modi Facility: [facility] Start: 11-26-2024 Non-patient / Non-visit Dr. Pk Shin MD -[facility] Start: 11-26-2024 Dr. Pk Shin MD -[facility] Start: 11-26-2024 ambulatory Vishal Yao Carlos LANGLEY Facility :[facility] Start: 11-25-2024 Non-patient / Non-visit Dr. Miguel Angel Montez DO -[facility] Work Phone: Start: 11-25-2024 Dr. Miguel Angel Montez [facility] Work Phone: Start: 11-24-2024 ambulatory Claudio Devlin [facility] ility:[facility] Start: 11-24-2024 End: 11-28-2024 Evaluation and management of inpatient Dr. Kendy Modi MD Work Phone: [facility] Work Phone: Start: 11-24-2024 End: 11-28-2024 Dr. Claudio Devlin DO Progressive Care Unit Work Phone: Start: 11-21-2024 ambulatory Cy Arnett Facil ity:[facility] Start: 11-19-2024 End: 11-19-[address] Kendy Modi MD Work Phone: [facility] Work Phone: Start: 11-19-2024 End: 11-19-[address] Kendy Modi MD -Laboratory Specimen Work Phone: Start: 11-19-2024 End: 11-19-2024 Dr. Kendy Modi MD -Laboratory, Specim en Work Phone: Start: 11-19-2024 End: 11-19-[address] Kendy Modi MD Work Phone: [facility] Work Phone: Start: 11-19-2024 End: 11-19-[address] Kendy Modi MD -Laboratory [facility] Start: 11-19-2024 End: 11-19-2024 Dr. Kendy Modi MD -Laboratory, [facility] Start: 11-19-2024 End: 11-19-2024 ambulatory Kendy Modi Facility:[facility] Start: 11-13-2024 End: 11-13-2024 Telephone encounter Everardo Yusuf APRNHildaCLOUD DEVELOPER Work Phone: Hematology/Oncology Comment on above: Refill Request Start: 10-30-2024 End: 10-30-2024 Vishal Gonzalez AIRLINE STATION AGENT-C -[facility] Work Phone: Start: 10-30-2024 End: 10-30-2024 ambulatory Vishal Gonzalez NP Facility:[facility] Start: 10-21-2024 End: 10-21-[address] Kendy Modi MD Work Phone: [facility] Work Phone: Start: 10-21-2024 End: 10-21-2024 Kendy Modi MD -Laboratory, [facility] Work Phone: Start: 10-21-2024 End: 10-21-2024 ambulatory Kendy MOLINA Facility:[facility] Start: 10-18-2024 Dr. Nicole Smith MD [facility] Work Phone: Start: 10-17-2024 Dr. Nicole Smith MD [facility] Work Phone: Start: 10-16-2024 Dr. Nicole Smith MD [facility] Work Phone: Start: 10-15-2024 Dr. Nicole Smith MD [facility] Work Phone: Start: 10-14-2024 Dr. Nicole Smith MD [facility] Work Phone: Start: 10-13-2024 [facility]. [facility] Start: 10-13-2024 Dr. Matt Penny MD -[facility] Work Phone: Start: 10-12-2024 Dr. Matt Penny MD -[facility] Work Phone: Start: 10-12-2024 Dr. Prateek Smith MD [facility] Start: 10-11-2024 Dr. Prateek Smith MD [facility] Start: 10-11-2024 Dr. Matt Penny MD -[facility] Work Phone: Start: 10-10-2024 ambulatory Prateek Smith Facility:[facility] Start: 10-10-2024 Dr. Reagan Fatima DO -[facility] Start: 10-10-2024 End: 10-18-2024 Evaluation and management of inpatient Dr. Kendy Modi MD Work Phone: [facility] Work Phone: Start: 10-10-2024 ambulatory Kendra Yuan Facility :[facility] Start: 10-10-2024 End: 10-18-2024 Dr. Nicole Smith MD -[facility] Work Phone: Start: 09-20-2024 End: 10-02-2024 Refill Everardo Yusuf APRN.CLOUD DEVELOPER Work Phone: Hematology/Oncology Comment on above: Refill Request Start: 09-13-2024 End: 09-17-2024 Telephone encounter Kenzie Drew APRN.ARTI, DNP Work Phone: Urology Comment on above: Orders Start: 09-09-2024 End: 09-10-2024 Telephone encounter Edgardo Hurtado [facility] Comment on above: Home Care Start: 09-09-2024 End: 09-09-2024 ambulatory KENZIE DREW Facility:[facility] Start: 09-09-2024 End: 09-09-2024 Patient encounter procedure Kenzie Drew CREDIT CONSULTANT.CLOUD DEVELOPER, DNP Work Phone: Urology Comment on above: Chronic suprapubic c atheter (HCC) (Primary Dx) Start: 08-28-2024 Dr. Catherine Barton MD - [facility] Work Phone: Start: 08-27-2024 Dr. Catherine Barton MD - [facility] Work Phone: Start: 08-26-2024 Dr. Catherine Barton MD - [facility] Work Phone: Start: 08-25-2024 ambulatory Chris Saunders ty:[facility] Start: 08-25-2024 End: 08-28-2024 Evaluation and management of inpatient Ling Ford Facility:[facility] Start: 08-25-2024 End: 08-28-2024 Dr. Catherine Barton MD -Progressive Care Unit Work Phone: Start: 08-14-2024 ambulatory Matt Penny Facility: [facility] Start: 07-29-2024 End: 07-29-2024 ambulatory KENDY MODI Facility:[facility] Start: 07-11-2024 End: 07-11-2024 ambulatory Hortensia Arana RN [facility] Comment on above: You are scheduled fo r a suprapubic catheter placement on 07/29/24 at 10:30 am Start: 07-11-2024 End: 07-11-2024 E-mail encounter from caregiver Hortensia Arana RN [facility] Start: 07-03-2024 End: 07-03-2024 Admission to same day surgery center I Shira Galarza MD Work Phone: Colorectal Surgery Comment on above: History of rectal ca ncer (Primary Dx) Start: 07-03-2024 End: 07-03-2024 ambulatory I SHIRA GALARZA Facility:[facility] Start: 07-03-2024 End: 07-03-2024 Telemedicine consultation with patient I Shira Galarza MD Work Phone: Colorectal Surgery Start: 06-28-2024 End: 06-28-2024 Telephone encounter Flower Villanueva RN Colorectal Surgery Start: 06-27-2024 End: 06-27-2024 Telephone encounter Gregorio Villalobos RN General Surgery Comment on above: Returning Patient's Call Start: 06-20-2024 End: 06-20-2024 Admission to same day surgery center Melanie Yang APRN.CNP Work Phone: Colorectal Surgery Comment on above: High output ileostom y (HCC) (Primary Dx) Start: 06-20-2024 End: 06-20-2024 ambulatory MELANIE YANG Facility:[facility] Start: 06-20-2024 End: 06-20-2024 Telemedicine consultation with patient Melanie Yang CHELSEY Work Phone: Colorectal Surgery Start: 06-17-2024 End: 06-17-2024 ambulatory SAGE GONZALEZ Facility:[facility] Start: 06-12-2024 End: 06-12-2024 ambulatory Hortensia Arana [facility] Rad[facility] Comment on above: You are scheduled fo r a suprapubic catheter placement on 06/27/24 at 10:30 am Retention of urine ( Primary Dx) Start: 06-12-2024 End: 06-12-2024 E-mail encounter from caregiver Hortensia Arana [facility] Start: 06-11-2024 End: 06-11-2024 Telephone encounter Pebbles Barfield MD Work Phone: Urology Comment on above: IR SPT scheduling Start: 06-04-2024 End: 06-04-2024 Patient encounter procedure Melanie Yang CLOUD DEVELOPER Work Phone: Colorectal Surgery Comment on above: 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); S/P exploratory laparotomy Start: 06-04-2024 End: 06-04-2024 ambulatory FOREST KIMBLE Facility:[facility] Start: 05-31-2024 End: 05-31-2024 ambulatory PEBBLES BARFIELD Facility:[facility] Start: 05-31-2024 End: 05-31-2024 Office outpatient visit 25 minutes Pebbles Barfield MD Work Phone: Urology Comment on above: Retention of urine ( Primary Dx) Start: 05-30-2024 ambulatory Prateek Luis Facility[facility] Start: 05-28-2024 ambulatory Prateek Luis [facility] Start: 05-28-2024 End: 05-28-2024 ambulatory Prateek Luis Facility:[facility] Start: 05-21-2024 End: 05-21-2024 ambulatory Prateek Smith Facility:[facility] Start: 05-03-2024 End: 05-03-2024 ambulatory [facility] Facility:[facility] Start: 05-03-2024 End: 05-03-2024 Nursing evaluation of patient and report [facility] Work Phone: Colorectal Surgery Comment on above: Attention to ileosto my (HCC) (Primary Dx) Start: 05-02-2024 End: 05-02-2024 ambulatory [facility] Facility:[facility] Start: 05-02-2024 End: 05-02-2024 Nursing evaluation of patient and report [facility] Comment on above: Retention of urine ( Primary Dx); Urge incontinence Start: 04-26-2024 ambulatory [facility] Facility: [facility] Start: 04-16-2024 End: 04-16-2024 [facility]ulatory [facility] Facility:[facility] Start: 04-12-2024 End: 04-12-2024 Telephone encounter Pebbles Barfield MD Work Phone: [place] Provider Adult Comment on above: Orders; Results Start: 04-10-2024 End: 04-10-2024 ambulatory [facility] Facility:[facility] Start: 04-10-2024 End: 04-10-2024 Nursing evaluation of patient and report [facility] Comment on above: Retention of urine ( Primary Dx); Gross hematuria Start: 03-11-2024 End: 03-11-2024 ambulatory KENZEI DREW Facility:[facility] Start: 03-11-2024 End: 03-11-2024 Office outpatient new 45 minutes Kenzie Drew CREDIT CONSULTANT.CLOUD DEVELOPER, DNP Work Phone: Urology Comment on above: Urinary retention (P rimary Dx); Frail elderly; History of CVA in adulthood; Unable to walk Start: 01-31-2024 Telephone encounter Gregorio Garcia General Surgery Comment on above: Phone encounter Start: 01-04-2024 ambulatory Drew Montemayor MD Work Phone: Infectious Disease Comment on above: [employer] Start: 12-29-2023 End: 01-12-2024 ambulatory Drew Montemayor MD Work Phone: [facility] Comment on above: [employer] Start Start: 12-08-2023 Evaluation and management of inpatient KENDY MODI Facility:[facility] Start: 12-02-2023 Evaluation and management of inpatient Dr. Kendy Modi Work Phone: [facility]-Medical Surgical 3 Work Phone: Start: 12-01-[address] Kendy chris Work Phone: [facility] Start: 11-29-2023 End: 11-29-2023 Emergency department patient visit Dr. Kendy Modi Work Phone: [facility]-Emergency Department Work Phone: Start: 11-29-[address] Kendy chris Work Phone: [facility] Start: 11-12-2023 End: 11-28-2023 Evaluation and management of inpatient Dalton Mandujano MD Work Phone: h5 Start: 2023 End: 11-12-2023 Emergency department patient visit Dr. Kendy Modi Work Phone: [facility]-Emergency Department Work Phone: Start: 10-16-2023 End: 10-16-[address] Kendy Modi Work Phone: [facility] Work Phone: Start: 10-16-2023 End: 10-16-[address] Kendy Modi Work Phone: [facility] Start: 09-07-2023 End: 09-07-[address] Kendy Modi Work Phone: [facility] Work Phone: Start: 08-29-2023 ambulatory KENDY MODI Facility: [facility] Start: 07-19-2023 End: 07-19-2023 Office outpatient visit 15 minutes Angeli Hernandesior DO Work Phone: [facility] [place] Comment on above: Colostomy complicati on (Primary Dx); Peristomal hernia Start: 07-19-2023 ambulatory KENDY Misti LY Facility: [facility] Start: 07-03-2023 Refill Everardo kumar CREDIT CONSULTANT.CLOUD DEVELOPER Work Phone: Hematology/Oncology Comment on above: Refill Request Start: 06-25-2023 Refill Dwayne Nolasco Work Phone: Hematology/Oncology Comment on above: Refill Request Start: 06-21-2023 End: 06-21-2023 ambulatory Everardo Yusuf CREDIT CONSULTANT.CLOUD DEVELOPER Work Phone: Hematology/Oncology Comment on above: Rectal cancer (HCC) (Primary Dx) Start: 06-21-2023 End: 06-21-2023 Patient encounter procedure Everardo Yusuf CREDIT CONSULTANT.CLOUD DEVELOPER Work Phone: [facility] Start: 06-15-2023 End: 06-15-2023 Subsequent hospital visit by physician [facility] (I-Stat) Work Phone: Cat Scan Comment on above: Rectal cancer (HCC) [C20] Start: 05-26-2023 Telephone encounter Everardo del rio CREDIT CONSULTANT.CLOUD DEVELOPER Work Phone: Hematology/Oncology Comment on above: Patient Question Start: 05-24-2023 End: 05-24-2023 Office outpatient visit 40 minutes Angeli Clark Gasior DO Work Phone: [facility] [place] Comment on above: Colostomy complicati on Start: 05-24-2023 ambulatory KENDY MODI Facility: [facility] Start: 03-24-2023 ambulatory KENDY MODI Facility:[facility] Start: 03-12-2023 Non-patient / Non-visit Dr. Kendy Modi Work Phone: [facility] Work Phone: Start: 03-11-2023 Non-patient / Non-visit Dr. Kendy Modi Work Phone: [facility] Work Phone: Start: 03-10-2023 End: 03-12-2023 Evaluation and management of inpatient Dr. Kendy Modi Work Phone: [facility]-Pro[facility] Work Phone: Start: 03-10-2023 End: 03-12-[address] Kendy Modi Work Phone: [facility] Work Phone: Start: 01-23-2023 End: 01-23-[address] Kendy Modi Work Phone: [facility] Work Phone: Start: 10-07-2022 End: 10-07-[address] Kendy Modi Work Phone: [facility] Work Phone: Start: 10-07-2022 End: 10-07-[address] Kendy Modi Work Phone: [facility] Start: 10-05-2022 End: 10-05-[address] Kendy Modi Work Phone: [facility] Work Phone: Start: 10-05-2022 End: 10-05-[address] Kendy Modi Work Phone: [facility] Start: 07-15-2022 End: 07-15-[address] Kendy Modi Work Phone: [facility] Start: 05-11-2022 End: 05-11-2022 Nursing evaluation of patient and report Stoma Therapy Work Phone: Colorectal Surgery Comment on above: Attention to colosto my (HCC) (Primary Dx) Start: 05-11-2022 End: 05-11-2022 Patient encounter procedure Daniel Galarza MD Work Phone: Colorectal Surgery Comment on above: History of rectal ca ncer (Primary Dx) Start: 04-24-2022 Refill Dwayne Nolasco Work Phone: Hematology/Oncology Comment on above: Refill Request Start: 03-15-2022 End: 03-15-2022 Subsequent hospital visit by physician Mr [facility] (Istat/3t) Work Phone: [facility] Radiology MRI Comment on above: Rectal cancer (HCC) [C20] Start: 12-13-2021 End: 12-13-2021 ambulatory Everardo Yusuf APRN.CLOUD DEVELOPER Work Phone: Hematology/Oncology Comment on above: Rectal cancer (HCC) (Primary Dx); Abnormal MRI, liver Start: 12-13-2021 End: 12-13-2021 Patient encounter procedure Everardo Yusuf APRN.CLOUD DEVELOPER Work Phone[facility] Start: 12-09-2021 End: 12-09-2021 Subsequent hospital visit by physician Mri [facility] (I-Stat/1.5t) Work Phone: Radiology Comment on above: Rectal cancer (HCC) [C20] Start: 11-23-2021 Telephone encounter Everardo del rio APRN.CLOUD DEVELOPER Work Phone: Hematology/Oncology Comment on above: Results Start: 11-22-2021 End: 11-22-2021 Subsequent hospital visit by physician Ct Prep [facility] Cat Scan Comment on above: Rectal cancer (HCC) [C20] Start: 11-19-2021 Orders Only Dwayne Nolsaco Work Phone: Hematology/Oncology Comment on above: Rectal cancer (HCC) (Primary Dx) Start: 10-27-2021 Non-patient / Non-visit Dr. Kendy Modi Work Phone: [facility] Start: 10-27-2021 End: 10-27-[address] Kendy Modi Work Phone: [facility] Start: 10-15-2021 End: 10-15-[address] Kendy Modi Work Phone: [facility] Start: 09-29-2021 Non-patient / Non-visit Dr. Kendy Modi Work Phone: [facility] Start: 09-28-2021 Non-patient / Non-visit Dr. Kendy Modi Work Phone: [facility] Start: 09-27-2021 Non-patient / Non-visit Dr. Kendy Modi Work Phone: [facility] Start: 09-27-2021 Non-patient / Non-visit Dr. Kendy Modi Work Phone: [facility] Start: 09-26-2021 Non-patient / Non-visit Dr. Kendy Modi Work Phone: [facility] Start: 09-26-2021 Non-patient / Non-visit Dr. Kendy Modi Work Phone: [facility] Start: 09-25-2021 Non-patient / Non-visit Dr. Kendy Modi Work Phone: [facility] Start: 09-25-2021 Non-patient / Non-visit Dr. Kendy Modi Work Phone: [facility] Start: 09-24-2021 Non-patient / Non-visit Dr. Kendy Modi Work Phone: [facility] Start: 09-24-2021 Non-patient / Non-visit Dr. Kendy Modi Work Phone: [facility] Start: 09-24-2021 End: 09-29-2021 Evaluation and management of inpatient Dr. Kendy Modi Work Phone: [facility]Pro[facility] Start: 09-23-2021 End: 09-23-2021 Emergency department patient visit Dr. Kendy Modi Work Phone: [facility]-Emergency Department Start: 09-23-2021 Non-patient / Non-visit Dr. Kendy Modi Work Phone: [facility] Start: 09-07-2021 Non-patient / Non-visit Dr. Kendy Modi Work Phone: [facility] Start: 09-07-2021 End: 09-07-2021 Admission to same day surgery center Dr. Kendy Modi Work Phone: [facility]-Endoscopy Start: 07-23-2021 End: 07-23-[address] Kendy Modi Work Phone: [facility] Start: 01-02-2015 End: 01-03-2015 Evaluation and management of inpatient KENZIE BARDALES Facility:[facility] Procedures Date Procedure Procedure Detail Performing Clinician Start: 12-02-[address] Kendy Modi MD Work Phone: Start: 11-28-[address] Kendy Modi MD Work Phone: Start: 11-24-2024 Urnls dip stick/tabl et reagent auto microscopy Dr. Kendy Modi MD Work Phone: Start: 11-24-2024 Iadna-dna/rna gi pth gn multiplex probe tq 6-11 Dr. Kendy Modi MD Work Phone: Start: 11-24-2024 Serum inorganic phos phate measurement Dr. Kendy Modi MD Work Phone: Start: 11-24-2024 CT of abdomen and pe lvis without contrast Dr. Kendy Modi MD Work Phone: Start: 11-24-2024 Clostridium difficil e detection Dr. Kendy Modi MD Work Phone: Start: 11-24-[address] Kendy Modi MD Work Phone: Start: 11-24-[address] Kendy Modi MD Work Phone: Start: 11-24-2024 Ova OR parasites identification Dr. Kendy Modi MD Work Phone: Start: 11-24-[address] Kendy crotez MD Work Phone: Start: 11-19-[address] Kendy cortez MD Work Phone: Start: 10-13-2024 Plain chest X-ray Dr. Steffi Modi MD Work Phone: Start: 10-10-[address] Kendy cortez MD Work Phone: Start: 10-10-2024 Legionella pneumophi la antigen assay Dr. Kendy Modi MD Work Phone: Start: 10-10-[address] Kendy Modi MD Work Phone: Start: 10-10-2024 Plain chest X-ray Dr. Steffi Modi MD Work Phone: Start: 10-10-2024 Streptococcus pneumo niae antigen assay Dr. Kendy Modi MD Work Phone: Start: 10-10-[address] Kendy cortez MD Work Phone: Start: 10-10-2024 Dr. Kendy chris MD Work Phone: Start: 10-10-2024 Computed tomography of abdomen and pelvis with intravenous contrast Dr. Kendy Modi MD Work Phone: Start: 10-10-2024 CT angiography of ch est with contrast Dr. Kendy Modi MD Work Phone: Start: 08-25-2024 CT of abdomen and pe lvis without contrast Dr. Kendy Modi MD Work Phone: Start: 08-25-2024 Plain chest X-ray Dr. Steffi Modi MD Work Phone: Start: 08-25-2024 CT of head without contrast Dr. Kendy Modi MD Work Phone: Start: 08-25-[address] Kendy cortez MD Work Phone: Start: 08-25-[address] Kendy cortez MD Work Phone: Start: 08-25-2024 Dr. Kendy chris MD Work Phone: Start: 12-07-2023 Colonoscopy Drew garcia MD Work Phone: Start: 12-01-2023 Plain X-ray abdomen Dr. Kendy Modi Work Phone: Start: 12-01-2023 Computed tomography of abdomen and pelvis with intravenous contrast Dr. Kendy Modi Work Phone: Start: 11-29-2023 CT of head without contrast Dr. Kendy Modi Work Phone: Start: 11-29-2023 Plain x-ray of pelvi s and lower extremity Dr. Kendy Modi Work Phone: Start: 11-28-2023 Glucose measurement, blood Boom Ford MD Work Phone: Start: 11-28-2023 Transthoracic echocardiography Jaleel Eyer CREDIT CONSULTANT-CLOUD DEVELOPER Work Phone: Start: 11-28-2023 CONTINUOUS CARDIAC MONITORING STRIP Other Other Start: 11-28-2023 Glucose measurement, blood Boom Ford MD Work Phone: Start: 11-28-2023 Assay of magnesium Maxw naman Simon [facility] Work Phone: Start: 11-27-2023 Glucose measurement, blood Boom Ford MD Work Phone: Start: 11-27-2023 Glucose measurement, blood Boom Ford MD Work Phone: Start: 11-27-2023 Glucose measurement, blood Boom Ford MD Work Phone: Start: 11-27-2023 Glucose measurement, blood Boom Ford MD Work Phone: Start: 11-27-2023 Assay of magnesium Loren Simon Dominick PAC Work Phone: Start: 11-26-2023 Glucose measurement, blood Boom Ford MD Work Phone: Start: 11-26-2023 Glucose measurement, blood Boom Ford MD Work Phone: Start: 11-26-2023 Glucose measurement, blood Boom Ford MD Work Phone: Start: 11-26-2023 CONTINUOUS CARDIAC MONITORING STRIP Other Other Start: 11-26-2023 Assay of magnesium Walterw naman Simon Dominick PAC Work Phone: Start: 11-25-2023 Glucose measurement, blood Boom Ford MD Work Phone: Start: 11-25-2023 End: 11-25-2023 Glucose measurement, blood Boom haile MD Work Phone: Start: 11-25-2023 Glucose measurement, blood Boom Fodr MD Work Phone: Start: 11-25-2023 Assay of magnesium Maxw naman Simon Dominick PAC Work Phone: Start: 11-24-2023 Glucose measurement, blood Boom Ford MD Work Phone: Start: 11-24-2023 Glucose measurement, blood Boom Ford MD Work Phone: Start: 11-24-2023 Glucose measurement, blood Boom Ford MD Work Phone: Start: 11-24-2023 Blood gases any combination ph pco2 po2 co2 hco3 Jaleel Eyer CREDIT CONSULTANT-CLOUD DEVELOPER Work Phone: Start: 11-24-2023 Glucose measurement, blood Boom Ford MD Work Phone: Start: 11-24-2023 CONTINUOUS CARDIAC MONITORING STRIP Other Other Start: 11-24-2023 Glucose measurement, blood Boom Ford MD Work Phone: Start: 11-24-2023 Blood gases any combination ph pco2 po2 co2 hco3 Jaleel Eyer CREDIT CONSULTANT-CLOUD DEVELOPER Work Phone: Start: 11-24-2023 Assay of magnesium Walterw naman Tan PAC Work Phone: Start: 11-23-2023 CONTINUOUS CARDIAC MONITORING STRIP Other Other Start: 11-23-2023 Glucose measurement, blood Boom Ford MD Work Phone: Start: 11-23-2023 Assay of magnesium Jackelin Carter MD Work Phone: Start: 11-23-2023 Glucose measurement, blood Boom Ford MD Work Phone: Start: 11-23-2023 Glucose measurement, blood Boom Ford MD Work Phone: Start: 11-23-2023 CONTINUOUS CARDIAC MONITORING STRIP Other Other Start: 11-23-2023 Glucose measurement, blood Boom Ford MD Work Phone: Start: 11-23-2023 Radiologic exam ches t single view Maciel Dennis Hassan PAC Work Phone: Start: 11-23-2023 Blood gases any combination ph pco2 po2 co2 hco3 Nimo Irizarry PAC Work Phone: Start: 11-23-2023 Glucose measurement, blood Boom Ford MD Work Phone: Start: 11-23-2023 Assay of magnesium Walterw naman Tan PAC Work Phone: Start: 11-22-2023 Glucose measurement, blood Boom Ford MD Work Phone: Start: 11-22-2023 CONTINUOUS CARDIAC MONITORING STRIP Other Other Start: 11-22-2023 Glucose measurement, blood Boom Ford MD Work Phone: Start: 11-22-2023 Glucose measurement, blood Boom Ford MD Work Phone: Start: 11-22-2023 IP CONSULT TO SPEECH THERAPY Joy Niño DO Work Phone: Start: 11-22-2023 IP CONSULT TO SPEECH THERAPY Valerie Morales CREDIT CONSULTANT-CLOUD DEVELOPER Work Phone: Start: 11-22-2023 CONTINUOUS CARDIAC MONITORING STRIP Other Other Start: 11-22-2023 Glucose measurement, blood Boom Ford MD Work Phone: Start: 11-22-2023 Radiologic exam ches t single view Valerie Morales CREDIT CONSULTANT-CLOUD DEVELOPER Work Phone: Start: 11-22-2023 Assay of magnesium Loren Tan PAC Work Phone: Start: 11-21-2023 Glucose measurement, blood Boom Ford MD Work Phone: Start: 11-21-2023 CONTINUOUS CARDIAC MONITORING STRIP Other Other Start: 11-21-2023 Glucose measurement, blood Boom Ford MD Work Phone: Start: 11-21-2023 Blood gases any combination ph pco2 po2 co2 hco3 Carla Q Tre PAC Work Phone: Start: 11-21-2023 CONTINUOUS CARDIAC MONITORING STRIP Other Other Start: 11-21-2023 Glucose measurement, blood Boom Ford MD Work Phone: Start: 11-21-2023 Ct angio abd&plvis c ntrst mtrl w/wo cntrst img Blanca Jimenez MD Work Phone: Start: 11-21-2023 End: 11-21-2023 Ct angiography head w/contrast/noncontrast Hayde Lopez CREDIT CONSULTANT-CLOUD DEVELOPER Work Phone: Start: 11-21-2023 Glucose measurement, blood Boom Ford MD Work Phone: Start: 11-21-2023 Blood count platelet automated Valerie Morales CREDIT CONSULTANT-CLOUD DEVELOPER Work Phone: Start: 11-21-2023 Radiologic exam ches t single view Carla Q Tre PAC Work Phone: Start: 11-21-2023 Glucose measurement, blood Boom Ford MD Work Phone: Start: 11-21-2023 Thromboplastin time partial plasma/whole blood Boom Ford MD Work Phone: Start: 11-21-2023 Glucose measurement, blood Boom Ford MD Work Phone: Start: 11-21-2023 Assay of magnesium Logan Macdonald CREDIT CONSULTANT-CLOUD DEVELOPER Work Phone: Start: 11-20-2023 Glucose measurement, blood Boom Ford MD Work Phone: Start: 11-20-2023 ACT* LOW RANGE, POC Alon Ford MD Work Phone: Start: 11-20-2023 Cath plmt l hrt & ar ts w/njx & angio img s&i Donna Bailey CREDIT CONSULTANT-CLOUD DEVELOPER Work Phone: Start: 11-20-2023 vasc access sits vsl patency ndl entry Donna Bailey CREDIT CONSULTANT-CLOUD DEVELOPER Work Phone: Start: 11-20-2023 ACT* LOW RANGE, POC Alon Ford MD Work Phone: Start: 11-20-2023 Glucose measurement, blood Boom Ford MD Work Phone: Start: 11-20-2023 End: 11-20-2023 Thromboplastin time partial plasma/whole blood Boom Ford MD Work Phone: Start: 11-20-2023 End: 11-20-2023 Assay of magnesium Cherelle Carter MD Work Phone: Start: 11-20-2023 Dup-scan xtr veins complete bilateral study Jose Eduardo Dennis Cobso PAC Work Phone: Start: 11-20-2023 End: 11-20-2023 Glucose measurement, blood Boom haile MD Work Phone: Start: 11-20-2023 CONTINUOUS CARDIAC MONITORING STRIP Other Other Start: 11-20-2023 Glucose measurement, blood Boom Ford MD Work Phone: Start: 11-20-2023 Thromboplastin time partial plasma/whole blood Boom Ford MD Work Phone: Start: 11-20-2023 Radiologic exam ches t single view Jose Eduardo Cobos PAC Work Phone: Start: 11-20-2023 Glucose measurement, blood Boom Ford MD Work Phone: Start: 11-20-2023 Thromboplastin time partial plasma/whole blood Boom Ford MD Work Phone: Start: 11-20-2023 Glucose measurement, blood Boom Ford MD Work Phone: Start: 11-20-2023 Assay of magnesium Logan Macdonald CREDIT CONSULTANT-CLOUD DEVELOPER Work Phone: Start: 11-19-2023 Thromboplastin time partial plasma/whole blood Boom Ford MD Work Phone: Start: 11-19-2023 Glucose measurement, blood Boom Ford MD Work Phone: Start: 11-19-2023 Glucose measurement, blood Boom Ford MD Work Phone: Start: 11-19-2023 Thromboplastin time partial plasma/whole blood Waqar Yao MD Work Phone: Start: 11-19-2023 Glucose measurement, blood Boom Ford MD Work Phone: Start: 11-19-2023 Radiologic exam ches t single view Michael Valdovinos [facility] Work Phone: Start: 11-19-2023 Assay of troponin quantitative Baltazar Franco MD Work Phone: Start: 11-19-2023 Glucose measurement, blood Boom Ford MD Work Phone: Start: 11-19-2023 Assay of magnesium Logan Valdovinos [facility] Work Phone: Start: 11-19-2023 Blood gases any combination ph pco2 po2 co2 hco3 Michael Valdovinos [facility] Work Phone: Start: 11-18-2023 Radiologic exam ches t single view Noah Blanchard MD Work Phone: Start: 11-18-2023 Blood gases any combination ph pco2 po2 co2 hco3 Noah Blanchard MD Work Phone: Start: 11-18-2023 Assay of troponin quantitative Baltazar Franco MD Work Phone: Start: 11-18-2023 Glucose measurement, blood Boom Ford MD Work Phone: Start: 11-18-2023 Thromboplastin time partial plasma/whole blood Waqar Yao MD Work Phone: Start: 11-18-2023 CONTINUOUS CARDIAC MONITORING STRIP Other Other Start: 11-18-2023 Assay of troponin quantitative Baltazar Franco MD Work Phone: Start: 11-18-2023 Echo transthorc r-t 2d w/wo m-mode rec f-up/lmtd Enrique Gonzalez MD Work Phone: Start: 11-18-2023 Sars-cov-2 detection by dna/rna Waqar Yao MD Work Phone: Start: 11-18-2023 End: 11-18-2023 Glucose measurement, blood Boom haile MD Work Phone: Start: 11-18-2023 Radiologic exam ches t single view Waqar Yao MD Work Phone: Start: 11-18-2023 Thromboplastin time partial plasma/whole blood Waqar Yao MD Work Phone: Start: 11-18-2023 Blood gases any combination ph pco2 po2 co2 hco3 Waqar Yao MD Work Phone: Start: 11-18-2023 Natriuretic peptide Waqar Yao MD Work Phone: Start: 11-18-2023 Radiologic exam ches t single view Waqar Yao MD Work Phone: Start: 11-18-2023 Blood gases any combination ph pco2 po2 co2 hco3 Waqar Yao MD Work Phone: Start: 11-18-2023 EXTRA MINT GREEN TOP Mane Ford MD Work Phone: Start: 11-18-2023 EXTRA TUBES Boom Ford MD Work Phone: Start: 11-18-2023 End: 11-18-2023 Assay of magnesium Iris Donnelly MD Work Phone: Start: 11-17-2023 CONTINUOUS CARDIAC MONITORING STRIP Other Other Start: 11-17-2023 Glucose measurement, blood Boom Ford MD Work Phone: Start: 11-17-2023 Glucose measurement, blood Boom Ford MD Work Phone: Start: 11-17-2023 Glucose measurement, shanel Ford MD Work Phone: Start: 11-17-2023 CONTINUOUS CARDIAC MONITORING STRIP Other Other Start: 11-17-2023 Glucose measurement, blood Boom Ford MD Work Phone: Start: 11-17-2023 Assay of magnesium Chin michael Donnelly MD Work Phone: Start: 11-17-2023 Glucose measurement, blood Boom Ford MD Work Phone: Start: 11-16-2023 CONTINUOUS CARDIAC MONITORING STRIP Other Other Start: 11-16-2023 Glucose measurement, blood Boom Ford MD Work Phone: Start: 11-16-2023 Glucose measurement, blood Boom Ford MD Work Phone: Start: 11-16-2023 Glucose measurement, blood Joselito Mora MD Work Phone: Start: 11-16-2023 ACT* LOW RANGE, POC Huey Mora MD Work Phone: Start: 11-16-2023 End: 11-16-2023 Tcat iv stent crv crtd art embolic protecj Boom Ford MD Work Phone: Start: 11-16-2023 ABORH TYPE RECONFIRMATION Quentin Jacques MD Work Phone: Start: 11-16-2023 Glucose measurement, blood Joselito Mora MD Work Phone: Start: 11-16-2023 Antibody screen KENDY MCKEON Comment on above: Performed By: #### X M #### [facility] [address] Start: 11-16-2023 Blood typing serologic abo Kristan Ernst MD Work Phone: Start: 11-16-2023 Creatinine blood Naren Ernst MD Work Phone: Start: 11-16-2023 PREPARE TO TRANSFUSE OR RED BLOOD CELLS Kristan Ernst MD Work Phone: Start: 11-16-2023 Prothrombin time Jeremy Chaney DO Work Phone: Start: 11-15-2023 Glucose measurement, blood Joselito Mora MD Work Phone: Start: 11-15-2023 Glucose measurement, blood Joselito Mora MD Work Phone: Start: 11-15-2023 Glucose measurement, blood Joselito Mora MD Work Phone: Start: 11-15-2023 Glucose measurement, blood Joselito Mora MD Work Phone: Start: 11-15-2023 Creatinine blood Cherelle Carter MD Work Phone: Start: 11-14-2023 End: 11-14-2023 Glucose measurement, blood Joselito Mora MD Work Phone: Start: 11-14-2023 Glucose measurement, blood Joselito Mora MD Work Phone: Start: 11-14-2023 Thromboplastin time partial plasma/whole blood Brian Self CREDIT CONSULTANT-CLOUD DEVELOPER Work Phone: Start: 11-14-2023 Glucose measurement, blood Joselito Mora MD Work Phone: Start: 11-14-2023 Myocardial spect mul tiple studies [facility] CREDIT CONSULTANTDossierViewCLOUD DEVELOPER Work Phone: Start: 11-14-2023 Thromboplastin time partial plasma/whole blood [facility] CREDIT CONSULTANT-CLOUD DEVELOPER Work Phone: Start: 11-14-2023 Glucose measurement, blood Joselito Mora MD Work Phone: Start: 11-14-2023 CONTINUOUS CARDIAC MONITORING STRIP Other Other Start: 11-14-2023 Assay of magnesium Maryr maria de jesus Self CREDIT CONSULTANT-CLOUD DEVELOPER Work Phone: Start: 11-13-2023 Glucose measurement, blood Joselito Mora MD Work Phone: Start: 11-13-2023 Thromboplastin time partial plasma/whole blood [facility] CREDIT CONSULTANT-CLOUD DEVELOPER Work Phone: Start: 11-13-2023 Blood count complete automated Fartun Riveraee CREDIT CONSULTANT-CLOUD DEVELOPER Work Phone: Start: 11-13-2023 Glucose measurement, blood Joselito Mora MD Work Phone: Start: 11-13-2023 Echo tthrc r-t 2d w/wom-mode compl spec&colr d Cherelle Carter MD Work Phone: Start: 11-13-2023 Glucose measurement, blood Joselito Mora MD Work Phone: Start: 11-13-2023 Glucose measurement, blood Joselito Mora MD Work Phone: Start: 11-13-2023 Hemoglobin glycosyla oswaldo a1c Cherelle Carter MD Work Phone: Start: 11-13-2023 Hepatic function panel Cherelle Carter MD Work Phone: Start: 11-12-2023 Assay of troponin quantitative Joselito Mora MD Work Phone: Start: 11-12-2023 EXTRA LAVENDER TOP Lowell Mora MD Work Phone: Start: 11-12-2023 EXTRA LIGHT BLUE TOP Fidel Mora MD Work Phone: Start: 11-12-2023 EXTRA SST GOLD TOP Lowell Mora MD Work Phone: Start: 11-12-2023 EXTRA TUBES Joselito mera MD Work Phone: Start: 11-12-2023 Ecg routine ecg w/le ast 12 lds trcg only w/o i&r Cherelle Carter MD Work Phone: Start: 11-12-2023 Assay of magnesium Jackelin Carter MD Work Phone: Start: 11-12-2023 EXTRA LAVENDER TOP Lowell Mora MD Work Phone: Start: 11-12-2023 EXTRA LIGHT BLUE TOP Fidel Mora MD Work Phone: Start: 11-12-2023 EXTRA SST GOLD TOP Lowell Mora MD Work Phone: Start: 11-12-2023 EXTRA TUBES Joselito mera MD Work Phone: Start: 11-12-2023 Ecg routine ecg w/le ast 12 lds trcg only w/o i&r Dalton Mandujano MD Work Phone: Start: 11-12-2023 IP CONSULT TO SPEECH THERAPY Cherelle Carter MD Work Phone: Start: 11-12-2023 Glucose measurement, blood Joselito Mora MD Work Phone: Start: 11-12-2023 Glucose measurement, blood Joselito Mora MD Work Phone: Start: 11-12-2023 Mri brain brain stem w/o w/contrast material Trixie Garrison de Leach CREDIT CONSULTANT-CLOUD DEVELOPER Work Phone: Start: 11-12-2023 Glucose measurement, blood Joey Thomson MD Work Phone: Start: 11-12-2023 C-reactive protein Asmita sa Ji de Leach CREDIT CONSULTANT-CLOUD DEVELOPER Work Phone: Start: 11-12-2023 Sedimentation rate r bc automated Trixie Garrison de Leach CREDIT CONSULTANT-CLOUD DEVELOPER Work Phone: Start: 11-12-2023 EXTRA MICRO Trixie Gar justus de Leach CREDIT CONSULTANT-CLOUD DEVELOPER Work Phone: Start: 11-12-2023 URINALYSIS REFLEX TO CULTURE Jordan Cardenas MD Work Phone: Start: 11-12-2023 Urnls dip stick/tabl et reagent auto microscopy Trixiesteffi Ji de Leach CREDIT CONSULTANT-CLOUD DEVELOPER Work Phone: Start: 11-12-2023 Radiologic exam ches t 2 views Trixiewinston Ji de Leach CREDIT CONSULTANT-CLOUD DEVELOPER Work Phone: Start: 11-12-2023 Duplex scan extracra nial art compl bi study Alycia Zamora DO Work Phone: Start: 11-12-2023 Glucose measurement, blood Dalton Mandujano MD Work Phone: Start: 11-12-2023 CBC AND ELECTRONIC DIFF Dalton Mandujano MD Work Phone: Start: 11-12-2023 Complete blood count with white cell differential, automated Dalton Mandujano MD Work Phone: Start: 11-12-2023 EXTRA LIGHT BLUE TOP Pr ovider Not In System Start: 11-12-2023 EXTRA TUBES Provider N ot In System Start: 11-12-2023 GOLD TOP TUBE Dalton schulte MD Work Phone: Start: 11-12-2023 Hemoglobin glycosyla oswaldo a1c Jordan Cardenas MD Work Phone: Start: 11-12-2023 LAVENDER TOP TUBE Dalton Mandujano MD Work Phone: Start: 11-12-2023 Lipid panel Jordan meehan MD Work Phone: Start: 11-12-2023 MINT GREEN TOP TUBE Carol Ann Mandujano MD Work Phone: Start: 11-12-2023 RAINBOW DRAW Dalton johnson MD Work Phone: Start: 2023 Plain chest X-ray Dr. Steffi Modi Work Phone: Start: 2023 CT angiography of he ad and neck Dr. Kendy Modi Work Phone: Start: 2023 CT of head without contrast Dr. Kendy Modi Work Phone: Start: 03-10-2023 Plain chest X-ray Dr. Steffi Modi Work Phone: Start: 03-10-2023 CT of head without contrast Dr. Kendy Modi Work Phone: Start: 03-15-2022 Mri abdomen w/o & w/contrast material Everardo Yusuf CREDIT CONSULTANT.CLOUD DEVELOPER Work Phone: Start: 03-15-2022 Creatinine [Mass/vol ume] in Serum or Plasma [facility] Provider Start: 12-09-2021 Mri abdomen w/o & w/contrast material Range Yusuf CREDIT CONSULTANT.CLOUD DEVELOPER Work Phone: Start: 11-22-2021 Ct abdomen & pelvis w/contrast material Range Yusuf CREDIT CONSULTANT.CLOUD DEVELOPER Work Phone: Start: 11-22-2021 Ct thorax w/contrast material Everardo Yusuf CREDIT CONSULTANT.CLOUD DEVELOPER Work Phone: Start: 10-27-2021 Cardiovascular stres s test using pharmacologic stress agent Dr. Kendy Modi Work Phone: Start: 09-27-2021 Respiratory Panel (PCR) Dr. Kendy Modi Work Phone: Start: 09-25-2021 Plain chest X-ray Dr. Steffi Modi Work Phone: Start: 09-24-2021 Bacteria identified in Blood by Culture Dr. Kendy Modi Work Phone: Start: 09-24-[address] Kendy cortez Work Phone: Start: 09-24-2021 MRI of brain without contrast Dr. Kendy Modi Work Phone: Start: 09-24-2021 CT angiography of ch est with contrast Dr. Kendy Modi Work Phone: Start: 09-24-2021 CT angiography of he ad and neck Dr. Kendy Modi Work Phone: Start: 09-23-2021 SARS-CoV-2 Antigen (Rapid) Dr. Kendy Modi Work Phone: Start: 09-23-2021 Plain chest X-ray Dr. Steffi Modi Work Phone: Start: 09-23-2021 CT of head without contrast Dr. Kendy Modi Work Phone: Start: 05-05-2019 Colonoscopy Dwayne Leonardo DO Work Phone: Start: 05-02-2019 Colonoscopy Everardo del rio APRN.CLOUD DEVELOPER Work Phone: Start: 01-02-2015 History of placement of stent for coronary artery disease History of coronary artery stent placement Vishal Gonzalez AIRLINE STATION AGENT-C Comment on above: OKG-[id number]-[id number]-Ramus Start: 01-02-2015 INS DRUG-ELUT COR STENT PROVIDER UNKNOWN Start: 01-02-2015 INSERTION OF 1 VSC STENT PROVIDER UNKNOWN Start: 01-02-2015 Other and unspecifie d coronary arteriography PROVIDER UNKNOWN Start: 01-02-2015 Percutaneous translu camila coronary angioplasty [PTCA] PROVIDER UNKNOWN Start: 01-02-2015 PROCEDURE ON SINGLE VESS PROVIDER UNKNOWN Start: 05-30-2008 History of coronary artery bypass grafting H/O coronary artery bypass surgery Vishal Gonzalez AIRLINE STATION AGENT-C Comment on above: CABG x 5 05/30/2008 ZUNIGA-LAD and D1, Free KIMBERLYN-PDA, SVG-Ramus, SVG-OM1 H/O: surgery S/P exploratory laparotomy Forest Kimble MD Work Phone: H/O: surgery Dr. Kendy Modi MD Work Phone: Plan of Treatment Date Care Activity Detail Author Start: 11-12-2028 Lipid panel [facility] Start: 05-31-2025 BP Controlled (<130/80) BP Controlled (<130/80) [facility] Start: 03-11-2025 COLORECTAL CANCER SCREENING COLORECTAL CANCER SCREENING [facility] Start: 03-11-2025 Screening for malignant neoplasm of colon [facility] Start: 03-11-2025 SIGMOIDOSCOPY SIGMOIDOSCOPY [facility] Start: 01-22-2025 End: 01-22-2025 Patient encounter procedure 01/22/2025 10:00 AM EDT Office Visit Colorectal Surgery [address] [place] [address] Daniel Galarza MD [address] [place] [address] DISCUSS REVERSAL/ FOLLOW UP Colorectal Surgery Comment on above: DISCUSS REVERSAL/ FOLLOW UP Start: 01-22-2025 End: 01-22-2025 Nursing evaluation of patient and report 01/22/2025 9:15 AM EDT Nurse Visit Colorectal Surgery [address] [address] Therapy, Stoma [address] [place] [address] STOMA F/U PER HUBER PATIENT NURSE Colorectal Surgery Comment on above: STOMA F/U PER HUBER PATIENT NURSE Start: 01-10-2025 Basic metabolic 2000 panel - Serum or Plasma BASIC METABOLIC PANEL Lab Routine Hyperkalemia Expected: 01/10/2025 [facility] Work Phone: Comment on above: Expected: 01/10/2025 Start: 01-10-2025 Protein/Creatinine [Mass Ratio] in Urine PROTEIN / CREATININE RATIO Lab Routine Hyperkalemia Expected: 01/10/2025 [facility] Comment on above: Expected: 01/10/2025 Start: 12-31-2024 End: 12-31-2024 Patient encounter procedure 12/31/2024 2:40 PM EDT Office Visit Urology [address] [address] Batool Au APRN.CLOUD DEVELOPER [address] [place] [address] 3 month follow up Urology Comment on above: 3 month follow up Start: 12-31-2024 Creatinine measurement Serum Creatinine [facility] Start: 12-28-2024 Creatinine measurement Serum Creatinine [facility] Start: 12-09-2024 End: 12-09-2024 Patient encounter procedure 12/09/2024 3:30 PM EDT Office Visit Urology [address] [address] Kenzie Drew APRN.CLOUD DEVELOPER, DNP [address] [place] [address] 3 month follow up Urology Comment on above: 3 month follow up Start: 12-06-2024 Screening for malignant neoplasm of colon Colonoscopy [facility] Start: 12-03-2024 [facility] Start: 11-30-2024 Diabetic foot examination Diabetic Foot Exam [facility] Start: 11-28-2024 Patient discharge [facility] Start: 11-28-2024 Consultation for treatment [facility] Start: 11-25-2024 [facility] Start: 11-25-2024 Following clinical pathway protocol [facility] Start: 11-25-2024 Triacylglycerol lipase measurement [facility] Start: 11-24-2024 Referral to vessel liner [facility] Start: 11-24-2024 Ambulation without limitation [facility] Start: 11-24-2024 Assessment of risk of venous thromboembolism [facility] Start: 11-24-2024 Care regimes management [facility] Start: 11-24-2024 Incentive spirometry [facility] Start: 11-24-2024 Insertion of catheter into peripheral vein [facility] Start: 11-24-2024 Measuring intake and output [facility] Start: 11-24-2024 Notification of physician [facility] Start: 11-24-2024 Oxygen therapy [facility] Start: 11-24-2024 Providing care according to standard [facility] Start: 11-24-2024 Referral to occupational therapist [facility] Start: 11-24-2024 Referral to service [facility] Start: 11-24-2024 End: 11-24-2024 [facility] Start: 11-24-2024 Verification routine [facility] Start: 11-24-2024 Admission procedure [facility] Start: 11-24-2024 Hospital admission, emergency, from emergency room, medical nature [facility] Start: 11-24-2024 Enteric precautions [facility] Start: 2024 Hepatitis B surface antibody level LDL Cholesterol [facility] Start: 10-18-2024 Patient discharge [facility] Start: 10-17-2024 Referral to service [facility] Start: 10-15-2024 Consultation for treatment [facility] Start: 10-12-2024 [facility] Start: 10-12-2024 Application of intermittent pneumatic compression device [facility] Start: 10-11-2024 Consultation [facility] Start: 10-11-2024 Referral to vessel liner [facility] Start: 10-11-2024 [facility] Start: 10-10-2024 Care planning and problem solving actions [facility] Start: 10-10-2024 Following clinical pathway protocol [facility] Start: 10-10-2024 Application of elastic bandage [facility] Start: 10-10-2024 Aspiration precautions [facility] Start: 10-10-2024 Assessment of risk of venous thromboembolism [facility] Start: 10-10-2024 Care regimes management [facility] Start: 10-10-2024 Consultation [facility] Start: 10-10-2024 Continuous pulse oximetry [facility] Start: 10-10-2024 Elevation of affected extremity [facility] Start: 10-10-2024 Fall prevention [facility] Start: 10-10-2024 Inhalation therapy procedure [facility] Start: 10-10-2024 Insertion of catheter into peripheral vein [facility] Start: 10-10-2024 Measuring intake and output [facility] Start: 10-10-2024 Notification of physician [facility] Start: 10-10-2024 Oxygen therapy [facility] Start: 10-10-2024 Patient education [facility] Start: 10-10-2024 [facility] Start: 10-10-2024 Providing care according to standard [facility] Start: 10-10-2024 Provision of activity privileges [facility] Start: 10-10-2024 Referral to software qa system specialist [facility] Start: 10-10-2024 Referral to occupational therapist [facility] Start: 10-10-2024 Referral to service [facility] Start: 10-10-2024 Tobacco use cessation education [facility] Start: 10-10-2024 Vital signs measurements [facility] Start: 10-10-2024 End: 10-10-2024 [facility] Start: 10-10-2024 Admission procedure [facility] Start: 10-10-2024 Dual pressure spontaneous ventilation support [facility] Start: 10-10-2024 [facility] Start: 10-10-2024 Patient referral to dietitian [facility] Start: 10-10-2024 [facility] Start: 08-28-2024 Referral to service [facility] Start: 08-28-2024 Patient discharge [facility] Start: 08-27-2024 Speech therapy assessment [facility] Start: 08-26-2024 End: 08-27-2024 [facility] Start: 08-26-2024 Contact precautions [facility] Start: 08-26-2024 Consultation for treatment [facility] Start: 08-26-2024 Consultation [facility] Start: 08-26-2024 End: 08-26-2024 [facility] Start: 08-26-2024 Notification of physician [facility] Start: 08-26-2024 Care regimes management [facility] Start: 08-25-2024 Assessment of risk of venous thromboembolism [facility] Start: 08-25-2024 Consultation [facility] Start: 08-25-2024 Inhalation therapy procedure [facility] Start: 08-25-2024 Insertion of catheter into peripheral vein [facility] Start: 08-25-2024 Measuring intake and output [facility] Start: 08-25-2024 Patient referral to dietitian [facility] Start: 08-25-2024 Providing care according to standard [facility] Start: 08-25-2024 Provision of activity privileges [facility] Start: 08-25-2024 Referral to occupational therapist [facility] Start: 08-25-2024 Referral to service [facility] Start: 08-25-2024 [facility] Start: 08-25-2024 Following clinical pathway protocol [facility] Start: 08-25-2024 Hospital admission, emergency, from emergency room, medical nature [facility] Start: 08-25-2024 Admission procedure [facility] Start: 08-12-2024 End: 08-12-2024 Patient encounter procedure 08/12/2024 11:00 AM EST Office Visit Gastroenterology [address] [id number] Becca Cano MD [facility] [address] [id number] cgrt page [phone] Gastroenterology Comment on above: cgrt page [id number] Start: 08-12-2024 End: 08-12-2024 ambulatory 08/12/2024 10:00 AM EST Education Gastroenterology [address] [address] Dietitian, Cgrt [address] [place], [place] [id number] cgrt page [phone] Gastroenterology Comment on above: cgrt page [id number] Start: 08-07-2024 Advance Directive Discussion Advance Directive Discussion [facility] Start: 07-29-2024 End: 07-29-2024 Admission to same day surgery center 07/29/2024 10:30 AM EST - 07/29/2024 12:00 PM [facility] Surgery [facility] [address] [place] [address] [place] [address] [place] [address] INSERTION CATHETER SUPRAPUBIC [facility] Comment on above: INSERTION CATHETER SUPRAPUBIC Start: 07-29-2024 End: 07-29-2024 Aspiration bladder insert suprapubic catheter INSERTION CATHETER SUPRAPUBIC Retention of urine 07/29/2024 10:30 AM EST [facility] IR Start: 07-29-2024 Subsequent hospital visit by physician 07/29/2024 10:30 AM EST Hospital Encounter [facility] [address] [place] [address] [place] [address] [address] [id number] Retention of urine [R33.9] [facility] Comment on above: Retention of urine [R33.9] Start: 07-03-2024 End: 07-03-2024 Admission to same day surgery center 07/03/2024 3:40 PM EST [facility] Colorectal Surgery [address] [address] Daniel Galarza MD [address] [place], [place] [phone] history of rectal cancer/ileostomy. pt wants to discuss reversal procedure possibilities. he is not feeling well so requested his appt to be changed to virtual. Colorectal Surgery Comment on above: history of rectal cancer/ileostomy. pt w ants to discuss reversal procedure possibilities. he is not feeling well so requested his appt to be changed to virtual. Start: 07-03-2024 End: 07-03-2024 Patient encounter procedure 07/03/2024 3:20 PM EST Office Visit Colorectal Surgery [address] [address] Daniel Galarza MD [address] [place] [address] history of rectal cancer/ileostomy Colorectal Surgery Comment on above: history of rectal cancer/ileostomy Start: 06-27-2024 End: 06-27-2024 Admission to same day surgery center 06/27/2024 10:30 AM EST - 06/27/2024 12:00 PM EST Surgery [facility] [address] [place] [address] [place] [address] [place] [address] INSERTION CATHETER SUPRAPUBIC [facility] Comment on above: INSERTION CATHETER SUPRAPUBIC Start: 06-27-2024 End: 06-27-2024 Aspiration bladder insert suprapubic catheter INSERTION CATHETER SUPRAPUBIC Retention of urine 06/27/2024 10:30 AM EST ME IR Start: 06-27-2024 Subsequent hospital visit by physician 06/27/2024 10:30 AM EST Hospital Encounter [facility] [address] [place] [address] [place] [address] [address] Retention of urine [R33.9] [facility] Comment on above: Retention of urine [R33.9] Start: 06-20-2024 End: 06-20-2024 Follow-up encounter 06/20/2024 4:00 PM [facility] Colorectal Surgery [address] [address] Melanie Yang APRN.CLOUD DEVELOPER [address] [place] [address] Stoma output follow up Colorectal Surgery Comment on above: Stoma output follow up Start: 06-15-2024 Serum Creatinine Serum Creatinine [facility] Start: 06-12-2024 End: 09-11-2024 CBC W Auto Differential panel - Blood COMPLETE BLOOD COUNT AND DIFFERENTIAL Lab STAT Retention of urine Expected: 06/12/2024, Expires: 09/11/2024 [facility] Comment on above: Expected: 06/12/2024, Expires: Start: 06-12-2024 End: 09-11-2024 PT panel - Platelet poor plasma by Coagulation assay PROTHROMBIN TIME Lab STAT Retention of urine Expected: 06/12/2024, Expires: 09/11/2024 [facility] Work Phone: Comment on above: Expected: 06/12/2024, Expires: Start: 06-04-2024 End: 06-04-2024 Patient encounter procedure General Surgery Comment on above: Follow Up/Post Op -Pt was in nursing greg e unable to make 02/2024 appt Stoma Issues Start: 05-27-2024 End: 05-27-2024 Patient encounter procedure 05/27/2024 10:30 AM EDT Office Visit Urology [address] [address] Pebbles Barfield MD [address] [place] [address] cysto Urology Comment on above: cysto Start: 05-03-2024 End: 05-03-2024 Nursing evaluation of patient and report 05/03/2024 1:00 PM EDT Nurse Visit Colorectal Surgery [address] [address] Therapy, Stoma [address] [place] [address] close colostomy and ileostomy, Colorectal Surgery Comment on above: close colostomy and ileostomy, Start: 04-18-2024 End: 04-18-2024 Patient encounter procedure 04/18/2024 9:30 AM EDT Office Visit Urology [address] [address] Pebbles Barfield MD [address] [place] [address] cysto Urology Comment on above: cysto Start: 04-07-2024 Covid-19 Vaccine ( season) Covid-19 Vaccine ( season) [facility] Start: 04-07-2024 Covid-19 Vaccine ( season) Covid-19 Vaccine () [facility] Start: 04-07-2024 Influenza vaccination Influenza Vaccine (#1) [facility] Start: 02-19-2024 End: 02-19-2024 Patient encounter procedure 02/19/2024 9:00 AM EDT Office Visit Urology [address] [address] Kenzie Drew APRN.CLOUD DEVELOPER, DNP [address] [place], [place] [phone] Urinary Retention Urology Comment on above: Urinary Retention Start: 02-12-2024 Hemoglobin A1c measurement HbA1C [facility] Start: 02-02-2024 End: 02-02-2024 Admission to same day surgery center 02/02/2024 1:40 PM EDT [facility] General Surgery [address] [place] [address] Forest Kimble MD [address] [place] [address] post op General Surgery Comment on above: post op Start: 01-23-2024 End: 01-23-2024 Patient encounter procedure Vascular Surgery Comment on above: MESENTERIC DUPLEX 1M FOLLOW UP S/P [facility] STENT Start: 01-16-2024 End: 01-16-2024 ambulatory Neurological [facility] Start: 01-10-2024 End: 01-10-2024 ambulatory [facility] Gastro[facility] [place] Start: 12-18-2023 End: 12-18-2023 ambulatory Vascular [facility] [place] Start: 12-18-2023 End: 12-18-2023 ambulatory [facility] [place] Start: 12-08-2023 End: 12-08-2023 Evaluation and management of inpatient [facility] Start: 12-08-2023 End: 12-08-2023 Laparoscopy surg colostomy/skn lvl cecostomy [facility] Start: 12-08-2023 End: 12-08-2023 REPAIR HERNIA ABDOMINAL INTIAL INCARCERATED/STRANGULATE D 3 TO 10 CM OPEN [facility] Start: 12-08-2023 Evaluation and management of inpatient [facility] Start: 12-02-2023 Complete blood count [facility] Start: 12-02-2023 [facility] Start: 12-02-2023 Ambulation without limitation [facility] Start: 12-02-2023 Assessment of risk of venous thromboembolism [facility] Start: 12-02-2023 Care regimes management [facility] Start: 12-02-2023 Incentive spirometry [facility] Start: 12-02-2023 Insertion of catheter into peripheral vein [facility] Start: 12-02-2023 Notification of physician [facility] Start: 12-02-2023 Oxygen therapy [facility] Start: 12-02-2023 Providing care according to standard [facility] Start: 12-02-2023 Referral to general surgeon [facility] Start: 12-02-2023 Referral to occupational therapist [facility] Start: 12-02-2023 Referral to service [facility] Start: 12-02-2023 [facility] Start: 12-02-2023 Verification routine [facility] Start: 12-02-2023 Admission procedure [facility] Start: 12-01-2023 End: 12-01-2023 ambulatory Telehealth Pre Procedure Preparation Start: 11-29-2023 [facility] Start: 11-17-2023 End: 11-16-2024 Cardiac telemetry [facility] Start: 11-17-2023 End: 11-16-2024 US.doppler Carotid arteries - bilateral [facility] Start: 2023 [facility] Start: 2023 Oxygen therapy [facility] Start: 2023 [facility] Start: 08-30-2023 Urine microalbumin profile DTaP,Tdap,Td Vaccine (2 - Td or Tdap) [facility] Start: 08-08-2023 End: 08-08-2023 Patient encounter procedure 08/08/2023 2:15 PM EST Office Visit General and Gastrointestinal Surgery [facility] [place] [address] [place] [phone] Dania Baker MD [address] [place] [phone] General and Gastrointestinal Surgery [facility] [place] Start: 08-07-2023 Advance Directive Discussion Advance Directive Discussion [facility] Start: 07-19-2023 End: 07-19-2023 Patient encounter procedure 07/19/2023 11:30 AM EST Office Visit [facility] Gastrointestinal [facility] [place] [address] [place] [address] Angeli Zarate DO [address] [place] [phone] General and Gastrointestinal Surgery [facility] Start: 05-26-2023 End: 08-25-2023 CREATININE BLD CREATININE BLD Lab STAT Rectal cancer (HCC) Elevated CEA Expected: 05/26/2023 (Approximate), Expires: 08/25/2023 [facility] Work Phone: Comment on above: Expected: 05/26/2023 (Approximate), Expi res: 08/25/2023 Start: 04-07-2023 COVID-19 VACCINE () COVID-19 VACCINE () [facility] Start: 04-07-2023 Influenza vaccination INFLUENZA VACCINE (#1) [facility] Start: 04-07-2023 [facility] Start: 03-19-2023 Blood chemistry [facility] Start: 03-18-2023 Blood chemistry [facility] Start: 03-17-2023 Blood chemistry [facility] Start: 03-16-2023 Blood chemistry [facility] Start: 03-15-2023 Blood chemistry [facility] Start: 03-14-2023 Blood chemistry [facility] Start: 03-13-2023 Blood chemistry [facility] Start: 03-12-2023 Patient discharge [facility] Start: 03-10-2023 Ambulation without limitation [facility] Start: 03-10-2023 Assessment of risk of venous thromboembolism [facility] Start: 03-10-2023 Care regimes management [facility] Start: 03-10-2023 Incentive spirometry [facility] Start: 03-10-2023 Insertion of catheter into peripheral vein [facility] Start: 03-10-2023 Measuring intake and output [facility] Start: 03-10-2023 Notification of physician [facility] Start: 03-10-2023 Oxygen therapy [facility] Start: 03-10-2023 Providing care according to standard [facility] Start: 03-10-2023 Referral to occupational therapist [facility] Start: 03-10-2023 Referral to service [facility] Start: 03-10-2023 [facility] Start: 03-10-2023 Verification routine [facility] Start: 03-10-2023 Admission procedure [facility] Start: 11-22-2022 SERUM CREATININE SERUM CREATININE [facility] Start: 2022 Abdominal aortic aneurysm screening ABDOMINAL AORTIC ANEURYSM HIGH RISK SCREEN [facility] Start: 2022 Advance Directive Discussion Advance Directive Discussion [facility] Start: 2022 Pneumococcal vaccination PNEUMOCOCCAL VACCINE SERIES (1 - PCV) [facility] Start: 05-24-2022 SERUM CREATININE SERUM CREATININE [facility] Start: 04-07-2022 Influenza vaccination [facility] Start: 01-16-2022 COVID-19 VACCINE (3 - Booster for Pfizer series) COVID-19 VACCINE (3 - Booster for Pfizer series) [facility] Start: 11-22-2021 End: 01-22-2022 Carcinoembryonic Ag [Mass/volume] in Serum or Plasma CEA BLD Lab Routine Rectal cancer (HCC) Expected: 11/22/2021, Expires: 01/22/2022 [facility] Work Phone: Comment on above: Expected: 11/22/2021, Expires: 2 Start: 11-22-2021 End: 01-22-2022 CBC W Auto Differential panel - Blood CBC + DIFF Lab STAT Rectal cancer (HCC) Expected: 11/22/2021, Expires: 01/22/2022 [facility] Work Phone: Comment on above: Expected: 11/22/2021, Expires: 2 Start: 11-22-2021 End: 01-22-2022 Comprehensive metabolic 2000 panel - Serum or Plasma COMP METABOLIC PANEL Lab Routine Rectal cancer (HCC) Expected: 11/22/2021, Expires: 01/22/2022 [facility] Work Phone: Comment on above: Expected: 11/22/2021, Expires: 2 Start: 10-13-2021 COVID-19 VACCINE (3 - Booster for Pfizer series) COVID-19 VACCINE (3 - Booster for Pfizer series) [facility] Start: 09-27-2021 Patient referral [facility] Work Phone: Start: 09-07-2021 Colonoscopy flx dx w/collj spec when pfrmd DIAGNOSTIC COLONOSCOPY [facility] Work Phone: Start: 08-20-2020 Hemoglobin A1c/Hemoglobin.total in Blood HBA1C [facility] Start: 05-05-2020 Colonoscopy COLONOSCOPY [facility] Start: 05-02-2020 Colonoscopy Colonoscopy [facility] Start: 11-28-2018 PROSTATE CANCER SCREENING DISCUSSION PROSTATE CANCER SCREENING DISCUSSION [facility] Start: 11-28-2018 Prostate specific antigen measurement Prostate Cancer Screening Discussion [facility] Start: 2017 Hepatitis B Vaccine (1 of 3 - Risk 3-dose series) Hepatitis B Vaccine (1 of 3 - Risk 3-dose series) [facility] Start: 2017 RSV Vaccine (1 - 1-dose 60+ series) RSV Vaccine (1 - 1-dose 60+ series) [facility] Start: 2017 RSV Vaccine (1 - Risk 60-74 years 1-dose series) RSV Vaccine (1 - Risk 60-74 years 1-dose series) [facility] Start: 01-03-2016 Hepatitis B surface antibody level LDL CHOLESTEROL [facility] Start: 11-12-2007 Prostate specific antigen measurement [facility] Start: 11-12-2007 SHINGRIX VACCINE (1 of 2) SHINGRIX VACCINE (1 of 2) [facility] Start: 11-12-2007 Zoster vaccine hzv live for subcutaneous use ZOSTER (SHINGLES) VACCINE (1 of 2) [facility] Start: 11-12-2007 [facility] Start: 2002 COLOGUARD (FIT-DNA) COLOGUARD (FIT-DNA) [facility] Start: [address] COLONOGRAPHY [facility] Start: 2002 FECAL OCCULT BLOOD FECAL OCCULT BLOOD [facility] Start: 2002 Screening for malignant neoplasm of colon [facility] Start: 1997 Lipid panel LIPID SCREENING [facility] Start: 1976 Third diphtheria, tetanus and acellular pertussis (DTaP) vaccination [facility] Start: 1976 Urine microalbumin profile [facility] Start: 11-12-1975 ANNUAL PCP TEAM CHRONIC DISEASE VISIT ANNUAL PCP TEAM CHRONIC DISEASE VISIT [facility] Start: 11-12-1975 BP CONTROLLED (<130/80) BP CONTROLLED (<130/80) [facility] Start: 11-12-1975 HEPATITIS C SCREENING HEPATITIS C SCREENING [facility] Start: 11-12-1975 Hepatitis C screening Hepatitis C Screening [facility] Start: 11-12-1975 HIV SCREENING HIV SCREENING [facility] Start: 1973 ONE PNEUMOVAX PRIOR TO AGE 65 ONE PNEUMOVAX PRIOR TO AGE 65 [facility] Start: 11-12-1967 3 comp foot exam completed DIABETIC FOOT EXAM [facility] Start: 11-12-1967 Glaucoma screening Dilated Retinal Exam [facility] Start: 11-12-1967 Hepatitis B screening URINE ALBUMIN:CREATININE RATIO [facility] Start: 11-12-1967 Hepatitis C antibody, confirmatory test DILATED RETINAL EXAM [facility] Start: 11-12-1963 PNEUMOCOCCAL (1 - PCV) PNEUMOCOCCAL (1 - PCV) [facility] Start: 11-12-1963 Pneumococcal Vaccine: 65+ (1 - PCV) Pneumococcal Vaccine: 65+ (1 - PCV) [facility] Start: 1957 [facility] Start: 1957 Tetanus vaccination [facility] Alanine aminotransfe rase [Enzymatic activity/volume] in Serum or Plasma [facility] Albumin [Mass/volume ] in Serum or Plasma [facility] Alkaline phosphatase [Enzymatic activity/volume] in Serum or Plasma [facility] Anion gap in Serum o r Plasma [facility] Anion gap measurement [facility] Anion gap measurement [facility] Anion gap measurement [facility] Anion gap measurement [facility] Anion gap measurement [facility] Anion gap measurement [facility] Anion gap measurement [facility] Anion gap measurement [facility] Aspartate aminotransferase [Enzymatic activity/volume] in Serum or Plasma [facility] Bacteria identified in Urine by Culture URINE CULTURE Microbiology Routine Gross hematuria 04/10/2024 10:39 AM EDT [facility] Work Phone: Basic metabolic 2008 panel with ionized calcium - Serum or Plasma [facility] Bilirubin, total measurement [facility] BUN/Creatinine ratio [facility] BUN/Creatinine ratio [facility] BUN/Creatinine ratio [facility] BUN/Creatinine ratio [facility] BUN/Creatinine ratio [facility] BUN/Creatinine ratio [facility] BUN/Creatinine ratio [facility] BUN/Creatinine ratio [facility] BUN/Creatinine ratio [facility] Calcium [Mass/volume ] in Serum or Plasma [facility] Calcium [Mass/volume ] in Serum or Plasma [facility] Calcium [Mass/volume ] in Serum or Plasma [facility] Calcium [Mass/volume ] in Serum or Plasma [facility] Calcium [Mass/volume ] in Serum or Plasma [facility] Calcium [Mass/volume ] in Serum or Plasma [facility] Calcium [Mass/volume ] in Serum or Plasma [facility] Calcium [Mass/volume ] in Serum or Plasma [facility] Calcium [Mass/volume ] in Serum or Plasma [facility] Carbon dioxide, tota l [Moles/volume] in Central venous blood [facility] Carbon dioxide, tota l [Moles/volume] in Serum or Plasma [facility] Carbon dioxide, tota l [Moles/volume] in Serum or Plasma [facility] Carbon dioxide, tota l [Moles/volume] in Serum or Plasma [facility] Carbon dioxide, tota l [Moles/volume] in Serum or Plasma [facility] Carbon dioxide, tota l [Moles/volume] in Serum or Plasma [facility] Carbon dioxide, tota l [Moles/volume] in Serum or Plasma [facility] Carbon dioxide, tota l [Moles/volume] in Serum or Plasma [facility] Carbon dioxide, tota l [Moles/volume] in Serum or Plasma [facility] CBC W Auto Different ial panel - Blood [facility] Chloride [Moles/volu me] in Serum or Plasma [facility] Chloride [Moles/volu me] in Serum or Plasma [facility] Chloride [Moles/volu me] in Serum or Plasma [facility] Chloride [Moles/volu me] in Serum or Plasma [facility] Chloride [Moles/volu me] in Serum or Plasma [facility] Chloride [Moles/volu me] in Serum or Plasma [facility] Chloride [Moles/volu me] in Serum or Plasma [facility] Chloride [Moles/volu me] in Serum or Plasma [facility] Creatinine [Mass/vol ume] in Serum or Plasma [facility] Creatinine [Moles/volume] in Serum or Plasma [facility] Creatinine [Moles/volume] in Serum or Plasma [facility] Creatinine [Moles/volume] in Serum or Plasma [facility] Creatinine [Moles/volume] in Serum or Plasma [facility] Creatinine [Moles/volume] in Serum or Plasma [facility] Creatinine [Moles/volume] in Serum or Plasma [facility] Creatinine [Moles/volume] in Serum or Plasma [facility] Creatinine [Moles/volume] in Serum or Plasma [facility] End: 06-24-2024 Ct abdomen & pelvis w/contrast material CT ABD/PEL W IVCON Radiology Routine Rectal cancer (HCC) Elevated CEA 1 Occurrences starting 05/26/2023 until 06/24/2024 [facility] Work Phone: Comment on above: 1 Occurrences starting 05/26/2023 until 06/24/2024 Ct abdomen & pelvis w/contrast material CT ABD/PEL W IVCON Radiology Routine Rectal cancer (HCC) Elevated CEA 06/15/2023 3:52 PM EST [facility] Work Phone: End: 06-24-2024 CT CHEST W IVCON CT CHEST W IVCON Radiology Routine Rectal cancer (HCC) Elevated CEA 1 Occurrences starting 05/26/2023 until 06/24/2024 [facility] Work Phone: Comment on above: 1 Occurrences starting 05/26/2023 until 06/24/2024 CT CHEST W IVCON CT CHEST W IVCO N Radiology Routine Rectal cancer (HCC) Elevated CEA 06/15/2023 3:52 PM EST [facility] Work Phone: [facility] Procedures Routine Urinary retention Ordered: 03/11/2024 [facility] Work Phone: Comment on above: Ordered: 03/11/2024 Erythrocyte mean corpuscular volume determination [facility] Glucose [Mass/volume ] in Serum or Plasma [facility] Glucose [Mass/volume ] in Serum or Plasma [facility] Glucose [Mass/volume ] in Serum or Plasma [facility] Glucose [Mass/volume ] in Serum or Plasma [facility] Glucose [Mass/volume ] in Serum or Plasma [facility] Glucose [Mass/volume ] in Serum or Plasma [facility] Glucose [Mass/volume ] in Serum or Plasma [facility] Glucose [Mass/volume ] in Serum or Plasma [facility] Glucose [Mass/volume ] in Serum or Plasma [facility] Hematocrit [Volume Fraction] of Blood [facility] Hematocrit [Volume Fraction] of Blood [facility] Hematocrit [Volume Fraction] of Blood [facility] Hematocrit [Volume Fraction] of Blood [facility] Hematocrit [Volume Fraction] of Blood [facility] Hematocrit [Volume Fraction] of Blood [facility] Hematocrit [Volume Fraction] of Blood [facility] Hematocrit [Volume Fraction] of Blood [facility] Hemoglobin [Mass/vol ume] in Blood [facility] Hemoglobin [Mass/vol ume] in Blood [facility] Hemoglobin [Mass/vol ume] in Blood [facility] Hemoglobin [Mass/vol ume] in Blood [facility] Hemoglobin [Mass/vol ume] in Blood [facility] Hemoglobin [Mass/vol ume] in Blood [facility] Hemoglobin [Mass/vol ume] in Blood [facility] Hemoglobin [Mass/vol ume] in Blood [facility] Laparoscopy surg colostomy/skn lvl cecostomy COLOSTOMY LAPAROSCOPIC Peristomal hernia [facility] Leukocytes [#/volume ] in Blood [facility] Leukocytes [#/volume ] in Blood [facility] Leukocytes [#/volume ] in Blood [facility] Leukocytes [#/volume ] in Blood [facility] Leukocytes [#/volume ] in Blood [facility] Leukocytes [#/volume ] in Blood [facility] Leukocytes [#/volume ] in Blood [facility] Leukocytes [#/volume ] in Blood [facility] Lipid 1996 panel - S khloe or Plasma [facility] Mean corpuscular hemoglobin concentration determination [facility] Mean corpuscular hemoglobin concentration determination [facility] Mean corpuscular hemoglobin concentration determination [facility] Mean corpuscular hemoglobin concentration determination [facility] Mean corpuscular hemoglobin concentration determination [facility] Mean corpuscular hemoglobin concentration determination [facility] Mean corpuscular hemoglobin concentration determination [facility] Mean corpuscular hemoglobin concentration determination [facility] Mean corpuscular hemoglobin determination [facility] Mean corpuscular hemoglobin determination [facility] Mean corpuscular hemoglobin determination [facility] Mean corpuscular hemoglobin determination [facility] Mean corpuscular hemoglobin determination [facility] Mean corpuscular hemoglobin determination [facility] Mean corpuscular hemoglobin determination [facility] Mean corpuscular hemoglobin determination [facility] Measurement of renal function [facility] Measurement of renal function [facility] Measurement of renal function [facility] Measurement of renal function [facility] Measurement of renal function [facility] Measurement of renal function [facility] Measurement of renal function [facility] Measurement of renal function [facility] Measurement of renal function [facility] Microscopic urinalysis [facility] End: 12-23-2022 MRI LIVER (EOVIST) WO/W IVCON MRI LIVER (EOVIST) WO/W IVCON Radiology Routine Rectal cancer (HCC) Abnormal CT of the abdomen 1 Occurrences starting 11/23/2021 until 12/23/2022 [facility] Work Phone: Comment on above: 1 Occurrences starting 11/23/2021 until 12/23/2022 MRI LIVER (EOVIST) W O/W IVCON MRI LIVER (EOVIST) WO/W IVCON Radiology Routine Rectal cancer (HCC) Abnormal CT of the abdomen 12/09/2021 3:26 PM EDT [facility] Work Phone: End: 01-12-2023 MRI LIVER (EOVIST) WO/W IVCON MRI LIVER (EOVIST) WO/W IVCON Radiology Routine Rectal cancer (HCC) Abnormal MRI, liver 1 Occurrences starting 12/13/2021 until 01/12/2023 [facility] Work Phone: Comment on above: 1 Occurrences starting 12/13/2021 until 01/12/[address] [facility] Neutrophil count [facility] Neutrophil count [facility] Neutrophil count [facility] Neutrophil count [facility] Neutrophil count [facility] Neutrophil count [facility] Neutrophil percent differential count [facility] Neutrophil percent differential count [facility] Neutrophil percent differential count [facility] Neutrophil percent differential count [facility] Neutrophil percent differential count [facility] Neutrophil percent differential count [facility] Neutrophil percent differential count [facility] NM Heart Views W str ess and W radionuclide IV [facility] NM Heart Views W str ess and W radionuclide IV [facility] NM Heart Views W str ess and W radionuclide IV [facility] Nucleic acid assay [facility] Organism count, microscopic method [facility] Ova OR parasites identification [facility] Patient Education [facility] Work Phone: Patient referral [facility] Work Phone: Platelets [#/volume] in Blood [facility] Platelets [#/volume] in Blood [facility] Platelets [#/volume] in Blood [facility] Platelets [#/volume] in Blood [facility] Platelets [#/volume] in Blood [facility] Platelets [#/volume] in Blood [facility] Platelets [#/volume] in Blood [facility] Platelets [#/volume] in Blood [facility] Potassium [Moles/vol ume] in Serum or Plasma [facility] Potassium [Moles/vol ume] in Serum or Plasma [facility] Potassium [Moles/vol ume] in Serum or Plasma [facility] Potassium [Moles/vol ume] in Serum or Plasma [facility] Potassium [Moles/vol ume] in Serum or Plasma [facility] Potassium [Moles/vol ume] in Serum or Plasma [facility] Potassium [Moles/vol ume] in Serum or Plasma [facility] Potassium [Moles/vol ume] in Serum or Plasma [facility] Potassium measurement [facility] End: 11-16-2023 PV FLUOROSCOPY IN ROSS OR [facility] Red blood cell count [facility] Red blood cell count [facility] Red blood cell count [facility] Red blood cell count [facility] Red blood cell count [facility] Red blood cell count [facility] Red blood cell count [facility] Red blood cell count [facility] Red cell distributio n width determination [facility] Red cell distributio n width determination [facility] Red cell distributio n width determination [facility] Red cell distributio n width determination [facility] Red cell distributio n width determination [facility] Red cell distributio n width determination [facility] Red cell distributio n width determination [facility] Red cell distributio n width determination [facility] REPAIR HERNIA ABDOMI NAL INTIAL INCARCERATED/STRANGULATE D 3 TO 10 CM OPEN [facility] MAIN OR RF Urinary bladder V iews W contrast via suprapubic tube IR SUPRAPUBIC TUBE PLACEMENT Radiology Routine Retention of urine Ordered: 05/31/2024 [facility] Work Phone: Comment on above: Ordered: 05/31/2024 Serum chloride measurement [facility] Sodium [Moles/volume ] in Serum or Plasma [facility] Sodium [Moles/volume ] in Serum or Plasma [facility] Sodium [Moles/volume ] in Serum or Plasma [facility] Sodium [Moles/volume ] in Serum or Plasma [facility] Sodium [Moles/volume ] in Serum or Plasma [facility] Sodium [Moles/volume ] in Serum or Plasma [facility] Sodium [Moles/volume ] in Serum or Plasma [facility] Sodium [Moles/volume ] in Serum or Plasma [facility] Sodium measurement [facility] SUPRAPUBIC TUBE CHANGE SUPRAPUBI C TUBE CHANGE Procedures Routine Chronic suprapubic catheter (HCC) Ordered: 09/09/2024 [facility] Work Phone: Comment on above: Ordered: 09/09/2024 Total protein measurement [facility] Urea nitrogen [Mass/volume] in Serum or Plasma [facility] Urea nitrogen [Mass/volume] in Serum or Plasma [facility] Urea nitrogen [Mass/volume] in Serum or Plasma [facility] Urea nitrogen [Mass/volume] in Serum or Plasma [facility] Urea nitrogen [Mass/volume] in Serum or Plasma [facility] Urea nitrogen [Mass/volume] in Serum or Plasma [facility] Urea nitrogen [Mass/volume] in Serum or Plasma [facility] Urea nitrogen [Mass/volume] in Serum or Plasma [facility] Urea nitrogen [Mass/volume] in Serum or Plasma [facility] Urine culture [facility] Urine microscopy: epithelial cells [facility] Urine microscopy: re d cells [facility] URODYNAMICS URODYNAMICS Proc edures Routine Urinary retention Ordered: 03/12/2024 [facility] Comment on above: Ordered: 03/12/[address] [facility] White blood cell count [facility] Immunizations Immunization Date Immunization Notes Care Provider Soren monge 06-13-2023 influenza virus vaccine, unspecified formulation Kenzie Derw APRN.[employer], DNP Work Phone: [facility] 09-28-2021 influenza, injectabl e, quadrivalent, preservative free Dr. Kendy Modi Work Phone: [facility] 09-28-2021 influenza, seasonal, injectable Dr. Kendy Modi Work Phone: [facility] 09-28-2021 influenza virus vaccine, unspecified formulation Angeli Zarate DO Work Phone: [facility] 08-30-2013 tetanus toxoid, reduced diphtheria toxoid, and acellular pertussis vaccine, adsorbed Dr. Kendy Modi Work Phone: [facility] Payers Date Payer Category Payer Self-pay [id number] 2024 Private Health Insurance [facility] [id number] 2023 Unknown xx 2020 [employer] Blue Shield BLUE CARD PPO OOS [id number] 2020 Unknown [employer] BLUE ACCE SS PPO [id number] 2020-Present [phone] [address] [place] [address] PPO [id number]. 2.7.3.794476.315 2020 Unknown [id number]. 1.13.159. 2.7.3.832430.315 2017 Medicare [id number]. 1.13.159. 2.7.3.055797.315 2017 Medicare [id number] 2012 Unknown [id number] 1957 Unknown [id number] 2.0.1.975214.3.579. 2.594 1957 Unknown [id number] 2.0.1.376933.3.579. 2.594 1957 Unknown [id number] .0.1.203075.3.579. 2.594 1957 Unknown [id number] 2.840.1.555290.3.579. 2.594 1957 Unknown [id number] .840.1.110362.3.579. 2.594 1957 Unknown [id number] 2.16840.1.979080.3.579. 2.594 Unknown [id number] 2.840.1.800139.3.579. 2.627 Unknown [employer] [id number] Unknown [id number] 2.16840.1.716357.3.579. 2.462 Unknown [id number] 2.16840.1.392717.3.579. 2.462 Unknown [id number] 2.16840.1.005254.3.579. 2.462 Unknown [id number] 2.840.1.880355.3.579. 2.462 Unknown [id number] 2.16.840.1.778767.3.579. 2.462 Unknown [id number] 2.16.840.1.829193.3.579. 2.462 Unknown [id number] 2.16.840.1.052340.3.579. 2.462 Unknown [id number] 2.16.840.1.352259.3.579. 2.462 Unknown [id number] 2.16.840.1.125713.3.579. 2.462 Unknown [id number] 2.16.840.1.339250.3.579. 2.462 Unknown [id number] 2.16.840.1.100948.3.579. 2.462 Unknown [id number] 2.16.840.1.980211.3.579. 2.462 Unknown [id number] 2.16.840.1.321090.3.579. 2.462 Unknown [id number] 2.16.840.1.872268.3.579. 2.462 Unknown [id number] 2.16.840.1.823016.3.579. 2.462 Unknown [id number] 2.16.840.1.059751.3.579. 2.462 Unknown [id number] 2.16.840.1.623490.3.579. 2.462 Unknown [id number] 2.16.840.1.192112.3.579. 2.462 Unknown [id number] 2.16.840.1.252627.3.579. 2.462 Unknown [id number] 2.16.840.1.476447.3.579. 2.462 Unknown [id number] 2.16.840.1.383569.3.579. 2.462 Unknown [id number] 2.16.840.1.550483.3.579. 2.462 Unknown [id number] 2.16.840.1.995950.3.579. 2.462 Unknown [id number] 2.16.840.1.520057.3.579. 2.462 Unknown [id number] 2.16.840.1.636246.3.579. 2.462 Unknown [id number] 2.16.840.1.647875.3.579. 2.462 Unknown [id number] 2.16.840.1.238568.3.579. 2.462 Unknown [id number] 2.16.840.1.344764.3.579. 2.462 Unknown [id number] 2.16.840.1.898606.3.579. 2.462 Unknown [id number] 2.16.840.1.511279.3.579. 2.462 Unknown [id number] 2.16.840.1.889367.3.579. 2.462 Unknown [id number] 2.16.840.1.251795.3.579. 2.462 Unknown [id number] 2.16.840.1.193017.3.579. 2.462 Unknown [id number] 2.16.840.1.133333.3.579. 2.462 Unknown [id number] 2.16.840.1.422239.3.579. 2.462 Unknown [id number] 2.16.840.1.515623.3.579. 2.462 Unknown [id number] 2.16.840.1.697648.3.579. 2.462 Unknown [id number] 2.16.840.1.761966.3.579. 2.462 Unknown [id number] 2.16.840.1.168239.3.579. 2.462 Unknown [id number] 2.16.840.1.603000.3.579. 2.462 Unknown [id number] 2.16.840.1.230928.3.579. 2.462 Unknown [id number] 2.16.840.1.651007.3.579. 2.462 Unknown [id number] 2.16.840.1.308867.3.579. 2.462 Unknown [id number] 2.16.840.1.432630.3.579. 2.462 Unknown [id number] 2.16.840.1.340547.3.579. 2.462 Unknown [id number] 2.16.840.1.426520.3.579. 2.462 Unknown [id number] 2.16.840.1.393258.3.579. 2.462 Unknown [id number] 2.16.840.1.699941.3.579. 2.462 Unknown [id number] 2.16.840.1.150382.3.579. 2.462 Unknown [id number] 2.840.1.907166.3.579. 2.462 Social History Date Type Detail Facility Start: 10-15-2021 End: 12-01-2023 Tobacco smoking status RIIS Unknown if ever smoked [facility] Start: 12-17-2020 Rare [facility] Start: 12-17-2020 None [facility] Start: 10-29-2019 Spouse/ Signif icant Other [facility] Start: 08-14-2020 Non-smoker [facility] Start: 1955 Sex Assigned At Male C [facility] Start: 01-22-2013 End: 12-02-2024 Tobacco smoking status NHIS Never smoked tobacco [facility] Start: 01-22-2013 End: 03-11-2024 Tobacco use and exposure Smokeless tobacco non-user [facility] Start: 06-30-2021 End: 12-31-2024 Alcohol intake Current non-drinker of alcohol (finding) [facility] Start: 05-27-2020 History SDOH Financial 5 [facility] Start: 05-27-2020 History SDOH Food Worry 1 [facility] Start: 05-27-2020 History SDOH Transpo rt Med 2 [facility] Start: 03-05-2022 End: 05-11-2022 Exposure to SARS-CoV-2 (event) Not sure [facility] Start: 05-24-2023 End: 11-20-2023 Alcohol intake Ex-drinker (finding) [facility] Start: 05-24-2023 End: 06-15-2023 History of Social function [facility] Work Phone: Start: 05-24-2023 End: 06-15-2023 Tobacco use panel [facility] Work Phone: Start: 05-24-2023 [address] [facility] Start: 1955 Sex Assigned At Not on file O [facility] How hard is it for y ou to pay for the very basics like food, housing, medical care, and heating Not hard at all [facility] Work Phone: (I/We) worried keenan er (my/our) food would run out before (I/we) got money to buy more. Never true [facility] Work Phone: Start: 03-31-2020 Gender identity Identifies as male gender (finding) [facility] Start: 03-31-2020 Sexual orientation Heterosexual (kerri rodrigues) [facility] Has the [employer], oil, or water company threatened to shut off services in your home in past 12Mo No [facility] Start: 10-18-2024 End: 11-28-2024 Sex Male (finding) [facility] NEGATED: Highlighted rowStart: NINF History of tobacco use Passive smoker [facility] Medical Equipment Procedure Code Equipment Code Equipment Origin al Text Equipment Identifier Dates Insertion, vascular access port PORT,6FR POWER PORT FDA Start: 10-10-2019 Insertion, vascular access port PORT,6FR POWER PORT FDA Start: 10-10-2019 Insertion, vascular access port PORT,6FR POWER PORT FDA Start: 10-10-2019 Insertion, vascular access port PORT,6FR POWER PORT FDA Start: 10-10-2019 Insertion, vascular access port PORT,6FR POWER PORT FDA Start: 10-10-2019 Insertion, vascular access port PORT,6FR POWER PORT FDA Start: 10-10-2019 Insertion, vascular access port PORT,6FR POWER PORT FDA Start: 10-10-2019 Insertion, vascular access port PORT,6FR POWER PORT FDA Start: 10-10-2019 Insertion, vascular access port PORT,6FR POWER PORT FDA Start: 10-10-2019 Insertion, vascular access port FDA Start: 10-10-2019 Insertion, vascular access port FDA Start: 10-10-2019 Insertion, vascular access port FDA Start: 10-10-2019 Insertion, vascular access port FDA Start: 10-10-2019 Insertion, vascular access port FDA Start: 10-10-2019 Insertion, vascular access port FDA Start: 10-10-2019 Insertion, vascular access port PORT,6FR POWER PORT FDA Start: 10-10-2019 Insertion, vascular access port PORT,6FR POWER PORT FDA Start: 10-10-2019 [id number] Start: 11-16-2023 [employer] 7mm 30mm Metal 27mm 135cm Biliary Otw - [id number] Start: 12-18-2023 [employer] 7mm 20mm Stainless Steel 17mm 135cm - [id number] Start: 12-18-2023 Goals Date Patient Goal Desired Activity /State Functional Status Date Assessment Result Facility 11-28-2024 Functional status Chair [facility] Work Phone: 11-25-2024 Functional status Ambulates [facility] Work Phone: 10-18-2024 Functional status Ambulates;Omi r;Bathroom Privilege [facility] Work Phone: 08-28-2024 Functional status Bedrest [facility] Work Phone: 03-12-2023 Functional status Activity Abili ty Standby Assist [facility] Work Phone: 03-11-2023 Functional status Patient Activi ty Dangle Feet [facility] Work Phone: 09-29-2021 Functional status Ambulates [facility] Work Phone: 05-28-2020 Are you deaf, or do you have serious difficulty hearing No 05/28/2020 1:41 PM Addis Moreno RN No [facility] 05-28-2020 Are you blind, or do you have serious difficulty seeing, even when wearing glasses No 05/28/2020 1:41 PM Addis Moreno RN No [facility] 05-28-2020 Do you have serious difficulty walking or climbing stairs No 05/28/2020 1:41 PM Addis Moreno RN No [facility] 05-28-2020 Do you have difficul ty dressing or bathing No 05/28/2020 1:41 PM Addis Moreno RN No [facility] 05-28-2020 Because of a physica l, mental, or emotional condition, do you have difficulty doing errands alone such as visiting a physician's office or shopping No 05/28/2020 1:41 PM Addis Moreno RN No [facility] Mental Status Date Assessment Result Facility 12-02-2024 Cognitive function Level Of Cons ciousness Awake;Alert;Appropriate;[facility] Work Phone: 11-28-2024 Cognitive function Voice/Name [facility] Work Phone: 11-25-2024 Cognitive function Appropriate;[facility] Work Phone: 10-18-2024 Cognitive function Voice/Name [facility] Work Phone: 08-28-2024 Cognitive function Voice/Name [facility] Work Phone: 08-27-2024 Cognitive function Appropriate;[facility] Work Phone: 2023 Cognitive function Awake;Alert;A ppropriate;Fo [employer] [facility] Work Phone: 03-12-2023 Cognitive function Voice/Name [facility] Work Phone: 03-10-2023 Cognitive function Voice/Name [facility] Work Phone: 09-29-2021 Cognitive function Voice/Name [facility] Work Phone: 09-23-2021 Cognitive function Level Of Cons ciousness Awake;Alert;Appropriate;Fo llows Commands [facility] Work Phone: 09-07-2021 Cognitive function Voice/Name [facility] Work Phone: 05-28-2020 Because of a physica l, mental, or emotional condition, do you have serious difficulty concentrating, remembering, or making decisions No 05/28/2020 1:41 PM EDT Addis Palma RN No [facility] Clinical Notes 05-30-2008 to 12-31-2024 Batool Au APRN.CLOUD DEVELOPER - 12/31/2024 3:09 PM EDT Note Date & Type Note Facility 12-31-2024 Note HNO ID: [id number] Author: BATOOL AU APRN.CLOUD DEVELOPER Service: ? Author Type: Nurse Practitioner Type: Progress Notes Filed: 12/31/2024 15:50 Note Text: Isaias Vega is a 69 year old male who presents today for a follow up for Patient presents with: Established Patient: 3 month follow up/suprapubic catheter CHIEF COMPLAINT AND HISTORY OF PRESENT ILLNESS CC: catheter change 69 year old male with a history of CVA, colo rectal cancer, chronic urinary retention, placement of SPT by IR in July 2025, he presents today to have the #18 SPT changed, he will start having it changed at home by [facility], he does endorse some leakage from the urethra while the SPT was in place.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 SPT has been draining yellow urine with some bleeding around the insertion site Seen by Dr. Barfield in May 2025 for urinary retention. UDS completed showing lack of mobility and small volume bladder, do not recommend WINTERS procedure, as he would likely develop worsening incontinence. Discussed chronic Mackenzie vs SPT. Do not recommend CIC given small volume bladder. SPT placed on 07/29/[address] Gonzalez. VITALS: There were no vitals taken for this visit. ALLERGIES: Patient has no known allergies. MEDICATIONS: Current Outpatient Medications Medication Sig Dispense Refill gabapentin (NEURONTIN) 300 mg capsule Take 300 mg by mouth three times a day. loperamide (IMODIUM A-D) 2 mg cap(s) Take 2 mg by mouth four times a day as needed. isosorbide dinitrate (ISORDIL) 30 mg tablet Take 30 mg by mouth four times daily. meclizine (ANTIVERT) 25 mg tab Take 25 mg by mouth three times a day. oxymetazoline (NASAL SPRAY 12HR,OXYMETAZOLINE) 0.05 % nasal spray Use 2 sprays in the nose two times a day. Multivitamins with Fluoride (MULTI VIT-FLUORIDE ORAL) Take by mouth. ondansetron HCl (ZOFRAN ORAL) Take by mouth. clopidogrel (PLAVIX) 75 mg tablet Take 1 tablet by mouth once daily. acetaminophen (TYLENOL) 325 mg tablet Take 2 tablets by mouth every 6 hours. aspirin 81 mg chewable tablet Take 1 tablet by mouth once daily. carvedilol (COREG) 12.5 mg tablet Take 1 tablet by mouth two times a day. DULoxetine (CYMBALTA) 60 mg capsule Take 1 capsule by mouth daily at bedtime. insulin glargine 100 unit/mL (3 mL) Inject 30 Units subcutaneously every morning. insulin lispro 100 unit/mL injection Inject 3 Units subcutaneously with meals. lidocaine (SALONPAS) 4 % patch Apply 1 Patch as directed once daily. melatonin 3 mg tablet Take 2 tablets by mouth one time only for 1 dose. [address] (PROTONIX) 40 mg tablet Take 1 tablet by mouth daily at 6 am. diphenoxylate-atropine (LOMOTIL) 2.5-0.025 mg per tablet Take 1 tablet by mouth four times a day as needed for diarrhea (high ostomy output) for up to 30 days. 120 tablet 0 dextrose (TRUEPLUS) 15 gram/32 mL oral gel Take 32 mL by mouth as needed. (Patient not taking: Reported on 12/31/2024) ipratropium-albuterol (DUONEB) 0.5 mg-3 mg(2.5 mg base)/3 mL nebu Inhale 3 mL as instructed every 6 hours as needed for wheezing/shortness of breath. (Patient not taking: Reported on 12/31/2024) labetalol (NORMODYNE) 5 mg/mL injection Inject 1 mL intravenously every 4 hours as needed (SBP > 160 only if HR < 90). (Patient not taking: Reported on 06/04/2024) OLANZapine orally disintegrating (ZYPREXA ZYDIS) 5 mg disintegrating tablet Take 0.5 tablets by mouth every 8 hours as needed. (Patient not taking: Reported on 12/31/2024) ondansetron, PF, (ZOFRAN) 4 mg/2 mL soln Inject 4 mg intravenously every 6 hours as needed. (Patient not taking: Reported on 06/04/2024) rosuvastatin (CRESTOR) 40 mg tablet Take 1 tablet by mouth daily at bedtime. (Patient not taking: Reported on 12/31/2024) zinc oxide-cod liver oil (DESITIN 40%) 40 % paste Apply 1 application to affected area as needed. (Patient not taking: Reported on 12/31/2024) No current facility-administered medications for this visit. 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 [facility] 12-31-2024 History of Present illness Narrative Isaias Vega is a 69 year old male who presents today for a follow up for Patient presents with: Established Patient: 3 month follow up/suprapubic catheter CHIEF COMPLAINT & HISTORY OF PRESENT ILLNESS CC: catheter change 69 year old male with a history of CVA, colo rectal cancer, chronic urinary retention, placement of SPT by IR in July 2025, he presents today to have the #18 SPT changed, he will start having it changed at home by [facility], he does endorse some leakage from the urethra while the SPT was in place.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 SPT has been draining yellow urine with some bleeding around the insertion site Seen by Dr. Barfield in May 2025 for urinary retention. UDS completed showing lack of mobility and small volume bladder, do not recommend WINTERS procedure, as he would likely develop worsening incontinence. Discussed chronic Mackenzie vs SPT. Do not recommend CIC given small volume bladder. SPT placed on 07/29/[address] Gonzalez. VITALS: There were no vitals taken for this visit. ALLERGIES: Patient has no known allergies. MEDICATIONS: Current Outpatient Medications Medication Sig Dispense Refill gabapentin (NEURONTIN) 300 mg capsule Take 300 mg by mouth three times a day. loperamide (IMODIUM A-D) 2 mg cap(s) Take 2 mg by mouth four times a day as needed. isosorbide dinitrate (ISORDIL) 30 mg tablet Take 30 mg by mouth four times daily. meclizine (ANTIVERT) 25 mg tab Take 25 mg by mouth three times a day. oxymetazoline (NASAL SPRAY 12HR,OXYMETAZOLINE) 0.05 % nasal spray Use 2 sprays in the nose two times a day. Multivitamins with Fluoride (MULTI VIT-FLUORIDE ORAL) Take by mouth. ondansetron HCl (ZOFRAN ORAL) Take by mouth. clopidogrel (PLAVIX) 75 mg tablet Take 1 tablet by mouth once daily. acetaminophen (TYLENOL) 325 mg tablet Take 2 tablets by mouth every 6 hours. aspirin 81 mg chewable tablet Take 1 tablet by mouth once daily. carvedilol (COREG) 12.5 mg tablet Take 1 tablet by mouth two times a day. DULoxetine (CYMBALTA) 60 mg capsule Take 1 capsule by mouth daily at bedtime. insulin glargine 100 unit/mL (3 mL) Inject 30 Units subcutaneously every morning. insulin lispro 100 unit/mL injection Inject 3 Units subcutaneously with meals. lidocaine (SALONPAS) 4 % patch Apply 1 Patch as directed once daily. melatonin 3 mg tablet Take 2 tablets by mouth one time only for 1 dose. [address] (PROTONIX) 40 mg tablet Take 1 tablet by mouth daily at 6 am. diphenoxylate-atropine (LOMOTIL) 2.5-0.025 mg per tablet Take 1 tablet by mouth four times a day as needed for diarrhea (high ostomy output) for up to 30 days. 120 tablet 0 dextrose (TRUEPLUS) 15 gram/32 mL oral gel Take 32 mL by mouth as needed. (Patient not taking: Reported on 12/31/2024) ipratropium-albuterol (DUONEB) 0.5 mg-3 mg(2.5 mg base)/3 mL nebu Inhale 3 mL as instructed every 6 hours as needed for wheezing/shortness of breath. (Patient not taking: Reported on 12/31/2024) labetalol (NORMODYNE) 5 mg/mL injection Inject 1 mL intravenously every 4 hours as needed (SBP > 160 only if HR < 90). (Patient not taking: Reported on 06/04/2024) OLANZapine orally disintegrating (ZYPREXA ZYDIS) 5 mg disintegrating tablet Take 0.5 tablets by mouth every 8 hours as needed. (Patient not taking: Reported on 12/31/2024) ondansetron, PF, (ZOFRAN) 4 mg/2 mL soln Inject 4 mg intravenously every 6 hours as needed. (Patient not taking: Reported on 06/04/2024) rosuvastatin (CRESTOR) 40 mg tablet Take 1 tablet by mouth daily at bedtime. (Patient not taking: Reported on 12/31/2024) zinc oxide-cod liver oil (DESITIN 40%) 40 % paste Apply 1 application to affected area as needed. (Patient not taking: Reported on 12/31/2024) No current facility-administered medications for this visit. 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 PAST SURGICAL HISTORY: PAST SURGICAL HISTORY Procedure Laterality Date ANGIOPLASTY CAROTID ARTERY S&I PC Rt side CABG (5) VENOUS GRAFTS & ARTERIAL GRAFT(S) 2008 CC CORONARY STENT 01/03/15 EXCISION TONSIL LESIONS BILATERAL HERNIA REPAIR HX PAST SURGICAL HISTORY OF 2009 RCEA PICC LINE INSERT/CONSULT 12/07/2023 REVSC OPN/PRG FEM/POP W/ANGIOPLASTY UNI Right 07-01-15 REVSC OPN/PRG FEM/POP W/ANGIOPLASTY UNI 08-14-15 REVSC OPN/PRQ TIB/DIANNA W/ANGIOPLASTY UNI Right 07-01-15 REVSC OPN/PRQ TIB/DIANNA W/ANGIOPLASTY [facility] 08-14-15 FAMILY HISTORY: FAMILY HISTORY Problem Relation Age of Onset Diabetes Mother Cancer Mother 40 breast Coronary Artery Disease Father Hypertension Father Lipids Father Cancer Father 57 leukemia All histories reviewed on this date 12/31/2024: Yes REVIEW OF SYSTEMS: CONSTITUTIONAL: Patient reports no recent fever or weight loss RESPIRATORY: Negative for cough, hemoptysis, wheezing, COPD, dyspnea or shortness of breath GI: See HPI All other systems reviewed and are negative other than HPI. PHYSICAL EXAM: constitutional: appears healthy in no acute distress respiratory: normal respiratory motion gi: +ileostomy with output gu: SPT removed without difficulty, new #18 sterile SPT placed, balloon filled with 10 cc sterile water, tolerated well, SPT is located right over the base of the penis RADIOLOGY REPORTS REVIEWED: Yes LAB RESULTS REVIEWED: Yes IMAGING STUDIES INDEPENDENTLY REVIEWED: No OLD RECORDS REVIEWED: Yes: Extensive: No ASSESSMENT/PLAN: 1. Suprapubic catheter (HCC) - ICD9: V44.59, ICD10: Z93.59 (primary diagnosis) -SPT changed per above note -follow up in 4 weeks with nursing for SPT change, if he is discharged from rehab and back home the SPT will be changed by [facility] at home 2. Chronic retention of urine - ICD9: 788.29, ICD10: R33.9 -now managed with SPT 3. Type 2 diabetes mellitus with hyperglycemia, with long-term current use of insulin (HCC) - ICD9: 250.00, 790.29, V58.67, ICD10: E11.65, Z79.4 -noted Patient to schedule follow up in 4 weeks if needed for SPT change, if changed at home then follow up in one year. Batool Au APRN.ARTI documented in this encounter [facility] 11-28-2024 Discharge summary Note Date/Time November 28, 2024 1:00pm [facility] Medical Records Department [address] [place] [address] Transfer to [facility] Care MR#: [id number] Acct: [id number] Name: YONY VEGA Rep #:[id number] : [id number] 69 From: Miguel Angel Montez DO PCP: Dr. Kendy Modi MD Status:ADM IN Certification of patient admission REQUIRED AT TIME OF ADMISSION. I CERTIFY THAT POST-HOSPITAL ECF SERVICES ARE REQUIRED TO BE GIVEN ON AN IN-PATIENT BASIS BECAUSE OF THE ABOVE NAMED PATIENT'S NEED FOR HALFWAY CARE ON A CONTINUING BASIS FOR THE CONDITION(S) FOR WHICH HE/SHE WAS RECEIVING IN-PATIENT HOSPITAL SERVICES PRIOR TO HIS/HER TRANSFER TO THE F. 11/28/24 1300<Electronically signed by Miguel Angel Montez DO> Diet Diet Order/Speech Therapy: 11/26/24 09:12 Diet: Cardiac - Heart Healthy No added sugar Routine Orders/Code Status Routine Lab Work: BMP (On 12/02/2024-send results to Dr. Arnett's office) and - (Fingerstick blood sugars AC nightly, sliding scale Humalog subcu per result: 200-250: 5 units, 251-300: 8 units, 301-350: 12 units) Code Status: DNRCC-A (No intubation) DC O2, CPAP, BIPAP needs Home O2 Discharge instructions: No Wound(s) coccyx: Wound Type: healing ulcer left lower abdomen: Wound Type: old stoma Therapies Weight Bearing: Full weight bearing Physical Therapy: Eval and Treat Occupational Therapy: Eval and Treat Problem/Diagnosis (1) MADELEINE (acute kidney injury): Status: Acute Code(s): N17.9 - Acute kidney failure, unspecified Plan 1. Acute kidney injury-secondary to nausea and vomiting-nausea - vomiting is resolved at this time, labs will be monitored as necessary #2 type 2 diabetes with an patient will remain on his present medication and blood sugars will be monitored he will receive sliding scale insulin #3 recent urinary tract infection with Klebsiella pneumoniae-the preliminary result on the patient's urine culture this admission shows Cameron albicans. I have elected to keep the patient on oral antibiotics for now #4 cardiomyopathy-etiology unclear, patient's EF is 40%, he will need further workup as an outpatient regarding this, continue carvedilol, I made the decisionto place the patient on lisinopril today, his BMP will be monitored Total clinical time spent by myself addressing the patient's medical issues, reviewing all of his data, and collaborating with the patient's care team: 35 minutes Allergies/Procedures Done in Hospital Allergies No Known Allergies Allergy (Verified 11/24/24 19:19) Type of Care/Length of Stay Estimated LOS: Convalescent Care Less Than 30 days Type of Care Needed: Skilled Rehab Potential: Good Prognosis: Good Additional Orders/Day of Discharge Day of Discharge: 11/28/24 Dietary and Speech Recommendations Dietitian Recommendations/Changes: Recommend advanced diet as tolerated to consistent carbohydrate with phosphorus restriction. If phosphorus labs improve to wnl, will discontinue phosphorus diet restriction. As diet is advanced, will order 240ml chocolate CIB with dinner. Will reassess for malnutrition, at time of follow up. Will monitor weight trends. Discharge Plan Admission Admit Date/Time: 11/24/24 22:33 Primary Reason for Your Visit: Acute kidney injury Attending Provider: Miguel Angel Montez Primary Care Provider: Kendy Modi Consulting Providers: Cy Arnett; Claudio Devlin Discharge Orders/Prescriptions Prescriptions: New insulin glargine-yfgn 100 unit/mL (3 mL) Insulin Pen 15 unit subcut BID Qty: 0 0RF lisinopril 10 mg Tablet 10 mg PO DAILY Qty: 0 0RF Continued atorvastatin 20 mg tablet 20 mg PO QDAY duloxetine 30 mg capsule,delayed release(DR/EC) 30 mg PO QDAY isosorbide mononitrate 30 mg tablet extended release 24 hr 30 mg PO DAILY 30 Days Qty: 30 11RF aspirin 81 MG tablet,chewable 81 mg PO DAILY melatonin 3 mg tablet 3 mg PO QHS Tums 300 mg (750 mg) tablet,chewable 300 mg PO TID PRN (Reason: dyspepsia) Tennga Saline 0.65 % aerosol,spray 2 spray intranasal Q4H PRN (Reason: dry nasal passages) Rx Instructions: while awake carvedilol 6.25 mg Tablet 6.25 mg PO BID Qty: 0 0RF gabapentin 300 mg capsule 300 mg PO DAILY Patient Comments: Has been out X 1 week pantoprazole 40 mg tablet,delayed release (DR/EC) 40 mg PO DAILY acetaminophen 325 mg capsule 650 mg PO Q6H PRN (Reason: pain) clopidogrel 75 mg tablet 75 mg PO DAILY Qty: 90 3RF Discontinued insulin glargine-yfgn [Semglee(insulin glarg-yfgn)Pen] 100 unit/mL (3 mL) insulin pen 45 unit subcut BID hydralazine 10 mg tablet 10 mg PO 4X/DAY 30 Days Qty: 120 11RF furosemide 40 mg tablet 40 mg PO BIDLX 30 Days Qty: 60 11RF insulin lispro [Humalog KwikPen Insulin] 100 unit/mL insulin pen 1 sliding scale dose SC TIDCM Protocol: 6. Sliding Scale Insulin Custom Condition: mg/dl range Dose/Route: Number of Units Condition: 0-200 Dose/Route: 0 Condition: 201-250 Dose/Route: 2 Condition: 251-300 Dose/Route: 4 Condition: 301-350 Dose/Route: 6 Condition: 351-400 Dose/Route: 8 Condition: 401-450 Dose/Route: 10 Condition: 451-500 Dose/Route: 12 Condition: 500+ Dose/Route: 14 Condition: 501+ Dose/Route: CALL MD Protocol Text: INJECT 4 UNITS SUBCUTANEOUSLY ALONG WITH SLIDING SCALE THREE TIMES A DAY AT 0730, 1130, AND 1630 metformin 500 mg tablet extended release 24 hr 500 mg PO BID Referrals / Follow Up: Kendy Modi MD [Primary Care Provider] - Cy Arnett MD [Med Staff - Consulting] - See Referral Note (Patient willneed to be seen next week, call office to confirm appointment) Etienne Darden MD [Med Staff - Active Staff] - See Referral Note (Confirm an appointment in December 2024 for follow-up) Disposition Disposition (needs filled in before D/C Order can be placed): Long-Term Facility 11/28/24 1300 <Electronically signed by Miguel Angel Montez DO> Cosigner Signature (if applicable): CC: Dr. Claudio Devlin DO; Dr. Kendy Modi MD; Dr. Cy Arnett MD ~ [facility] Work Phone: 1(311) 720-626104-24-[address] [facility]04-23-2025 Progress note Author Miguel Angel Randleann [facility] Note Date/Time November 27, 2024 6:4 6pm [facility] Medical Records Department [address] [place] [address] Progress Note - Hospitalist 11/27/24 1845 MR#: [id number] Acct: [id number] Name: YONY VEGA Rep #:[id number] : 1955 69 From: Miguel Angel Montez DO PCP: Dr. Kendy Modi MD Status:ADM IN Location: [place] [address] Reason for Visit Reason for Visit: Diagnoses Acute pancreatitis without necrosis or infection, unspecified (11/24/24) Acute kidney failure, unspecified (11/24/24) Unspecified kidney failure (11/24/24) Nausea with vomiting, unspecified (11/24/24) Subjective Subjective Patient was seen and examined today, he has creatinine is improved, I have elected to place him on an ILDA inhibitor due to his cardiomyopathy. Echo yesterday showed an ejection fraction of 40%. Objective Data Objective Data Vital Signs: Vital Signs Temp Pulse Resp BP Pulse Ox O2 Del Method 97.0 F L 63 14 138/73 H 96 Room Air 11/27/24 06:35 11/27/24 06:35 11/27/24 06:35 11/27/24 06:35 11/27/24 06:35 11/27/24 06:35 Oxygen Delivery Method Room Air Weight: 62.2 kg Body Mass Index (BMI) 21.4 Intake & Output: Intake and Output for Last 24 Hours 11/25/24 11/26/24 11/27/24 23:59 23:59 23:59 Intake Total 4185 / 4185 1930 / 1930 100 / 100 Output Total 3250 / 3250 2950 / 2950 2100 / 2100 Balance 935 / 935 -1020 / -1020 -1999 / -1999 Lab / Micro Data 11/25/24 07:43 11/27/24 06:32 Labs: Laboratory Results - last 24 hr 11/26/24 23:40: POC Glucose 194 H 11/27/24 06:31: POC Glucose 195 H 11/27/24 06:32: Sodium 138, Potassium 3.9, Chloride 103, Carbon Dioxide 24.6, Anion Gap 10, BUN 36 H, Creatinine 1.26 H, Estim Creat Clear Calc 50.05, Est GFR(MDRD) Non-Af 63, BUN/Creatinine Ratio 28.8 H, Glucose 190 H, Calcium 8.5 11/27/24 11:24: POC Glucose 203 H 11/27/24 17:22: POC Glucose 312 H Micro: Microbiology 11/24/24 22:57 Urine Catheter - Mackenzie Urine Culture - Final Presumptive C albicans 11/24/24 20:32 Stool Stool Lactoferrin - Final 11/24/24 20:32 Stool Enteric Bacteriology - Final 11/24/24 20:32 Stool Clostridioides difficile (PCR) - Final Physical Exam Narrative alert, oriented x3 and no apparent distress Constitutional Narrative: Patient appears older than his stated age General Appearance: cooperative, well kempt and well developed Orientation / Consciousness: awake, oriented to person, oriented to place and oriented to time HEENT normocephalic and moist oral mucous membranes Eyes PERRL, EOMs intact bilaterally and conjunctivae normal Neck supple, no JVD, thyroid normal and no carotid bruits General: trachea midline Resp normal respiratory effort and clear to auscultation bilaterally Auscultation: Negative for rales, rhonchi or wheezes Cardio regular rate, regular rhythm, no murmurs, no rub and no gallops GI normal to inspection, nondistended, normoactive bowel sounds, soft to palpation,non-tender and non-distended GI Narrative: Patient has an ileostomy in place and a suprapubic catheter, there is a covered ostomy present over the patient's left mid abdomen. Extremity no clubbing, cyanosis or edema Skin no rashes or lesions noted General Skin Exam: no breakdown Neuro oriented x3, CN's II-XII intact bilaterally, no focal motor deficits and no sensory deficits noted Sensorium / Orientation: awake and alert Speech: speech normal Psych affect normal Assessment & Plan Assessment/Plan (1) MADELEINE (acute kidney injury): PLAN: Plan 1. Acute kidney injury-secondary to nausea and vomiting-nausea - vomiting is resolved at this time, labs will be monitored as necessary #2 type 2 diabetes with an patient will remain on his present medication and blood sugars will be monitored he will receive sliding scale insulin #3 recent urinary tract infection with Klebsiella pneumoniae-the preliminary result on the patient's urine culture this admission shows Cameron albicans. I have elected to keep the patient on oral antibiotics for now #4 cardiomyopathy-etiology unclear, patient's EF is 40%, he will need further workup as an outpatient regarding this, continue carvedilol, I made the decisionto place the patient on lisinopril today, his BMP will be monitored Total clinical time spent by myself addressing the patient's medical issues, reviewing all of his data, and collaborating with the patient's care team: 35 minutes Charges/Coding Visit Charges Inpatient E&M: 18585 Subs Hosp L2 11/27/24 2236 <Electronically signed by Miguel Angel Montez DO> Cosigner Signature (if applicable): CC: ~ Signed [facility] Work Phone: 1(148) 602-322904-22-2025 Progress note Author Miguel Angel [facility] Note Date/Time November 26, 2024 4:2 8pm [facility] Medical Records Department [address] [place] [address] Progress Note - Hospitalist 11/26/24 1621 MR#: [id number] Acct: [id number] Name: YONY VEGA Rep #:[id number] : 1955 69 From: Miguel Angel Montez DO PCP: Dr. Kendy Modi MD Status:ADM IN Location: [place] [address] Reason for Visit Reason for Visit: Diagnoses Acute pancreatitis without necrosis or infection, unspecified (11/24/24) Acute kidney failure, unspecified (11/24/24) Unspecified kidney failure (11/24/24) Nausea with vomiting, unspecified (11/24/24) Subjective Subjective Patient was seen and examined today, his family members were in the room during the time my examination. Patient's creatinine was improved today I decided to stop the patient's fluid administration due to his cardiomyopathy. Limited echocardiogram was performed today which showed a an EF of 40% which is in line with his last echocardiogram. Patient remains on room air and does not appear short of breath. Patient's family would like the patient to go to a retirement facility for short-term rehab services and case management is involved with this planning. Objective Data Objective Data Vital Signs: Vital Signs Temp Pulse Resp BP Pulse Ox O2 Del Method 97.9 F 77 12 141/71 H 98 Room Air 11/26/24 14:05 11/26/24 14:05 11/26/24 14:05 11/26/24 14:05 11/26/24 14:05 11/26/24 14:05 Oxygen Delivery Method Room Air Weight: 60.8 kg Body Mass Index (BMI) 20.9 Intake & Output: Intake and Output for Last 24 Hours 11/24/24 11/25/24 11/26/24 23:59 23:59 23:59 Intake Total 2550 / 2550 4185 / 4185 1690 / 1690 Output Total 3250 / 3250 1850 / 1850 Balance 2550 / 2550 935 / 935 -160 / -160 Lab / Micro Data 11/25/24 07:43 11/26/24 06:14 Labs: Laboratory Results - last 24 hr 11/25/24 17:16: POC Glucose 118 H 11/25/24 21:28: POC Glucose 215 H 11/25/24 23:20: POC Glucose 122 H 11/26/24 05:41: POC Glucose 59 L 11/26/24 05:56: POC Glucose 55 L 11/26/24 06:14: Sodium 138, Potassium 3.0 L, Chloride 102, Carbon Dioxide 23.8, Anion Gap 12, BUN 60 H, Creatinine 1.60 H, Estim Creat Clear Calc 38.53 L, Est GFR (MDRD) Non-Af 47 L, BUN/Creatinine Ratio 37.7 H, Glucose 118 H, Calcium 8.3 11/26/24 06:20: POC Glucose 133 H 11/26/24 11:45: POC Glucose 108 H Micro: Microbiology 11/24/24 22:57 Urine Catheter - Mackenzie Urine Culture - Preliminary Presumptive C albicans 11/24/24 20:32 Stool Stool Lactoferrin - Final 11/24/24 20:32 Stool Enteric Bacteriology - Final 11/24/24 20:32 Stool Clostridioides difficile (PCR) - Final Radiography Diagnostic Testing: Radiology Impression Echocardiogram 11/26/24 09:49 Interpretation Summary Normal LV size. The left ventricular ejection fraction is 40 %. There is mild to moderate global hypokinesis of the left ventricle. The left atrium is mildly enlarged. Mild-Moderate (1-2+) eccentric mitral valve insufficiency. Pulmonary artery systolic pressure is 44 mmHg. Ordering Physician: Miguel Angel Montez Referring Physician: KENDY MODI Performed By: Bia Sam RDCS Physical Exam Narrative alert, oriented x3 and no apparent distress Constitutional Narrative: Patient appears older than his stated age General Appearance: cooperative, well kempt and well developed Orientation / Consciousness: awake, oriented to person, oriented to place and oriented to time HEENT normocephalic and moist oral mucous membranes Eyes PERRL, EOMs intact bilaterally and conjunctivae normal Neck supple, no JVD, thyroid normal and no carotid bruits General: trachea midline Resp normal respiratory effort and clear to auscultation bilaterally Auscultation: Negative for rales, rhonchi or wheezes Cardio regular rate, regular rhythm, no murmurs, no rub and no gallops GI normal to inspection, nondistended, normoactive bowel sounds, soft to palpation,non-tender and non-distended GI Narrative: Patient has an ileostomy in place and a suprapubic catheter, there is a covered ostomy present over the patient's left mid abdomen. Extremity no clubbing, cyanosis or edema Skin no rashes or lesions noted General Skin Exam: no breakdown Neuro oriented x3, CN's II-XII intact bilaterally, no focal motor deficits and no sensory deficits noted Sensorium / Orientation: awake and alert Speech: speech normal Psych affect normal Assessment & Plan Assessment/Plan (1) MADELEINE (acute kidney injury): PLAN: Plan 1. Acute kidney injury-secondary to nausea and vomiting-nausea - vomiting is resolved at this time, labs will be monitored-BMP tomorrow #2 type 2 diabetes with an patient will remain on his present medication and blood sugars will be monitored he will receive sliding scale insulin #3 recent urinary tract infection with Klebsiella pneumoniae-the preliminary result on the patient's urine culture this admission shows Cameron albicans. I have elected to keep the patient on oral antibiotics for now #4 cardiomyopathy-etiology unclear, patient's EF is 40%, he will need further workup as an outpatient regarding this, continue carvedilol, it may be possible to add an ILDA inhibitor to the patient's medication regimen, repeat BMP will be drawn tomorrow Total clinical time spent by myself addressing the patient's medical issues, reviewing all of his data, and collaborating with the patient's care team: 35 minutes Charges/Coding Visit Charges Inpatient E&M: 41214 Subs Hosp L2 11/26/248 <Electronically signed by Miguel Angel Montez DO> Cosigner Signature (if applicable): CC: ~ Signed [facility] Work Phone: 1(626) 457-933004-22-2025 Progress note Author Cy Arnett [facility] Note Date/Time November 26, 2024 12: 20pm [facility] Medical Records Department [address] [place] [id number] Progress Note - Nephrology 11/26/24 1219 MR#: [id number] Acct: [id number] Name: YONY VEGA Rep #:[id number] : 1955 69 From: Cy ravi MD PCP: Dr. Kendy Modi MD Status:ADM IN Location: [place] [address] Subjective Subjective no new events Objective Data Objective Data Vital Signs: Vital Signs Temp Pulse Resp BP Pulse Ox O2 Del Method 98.0 F 74 12 135/54 H 97 Room Air 11/26/24 09:25 11/26/24 09:25 11/26/24 09:25 11/26/24 09:25 11/26/24 09:25 11/26/24 09:25 Oxygen Delivery Method Room Air Weight: 60.8 kg Body Mass Index (BMI) 20.9 Intake & Output: Intake and Output for Last 24 Hours 11/24/24 11/25/24 11/26/24 23:59 23:59 23:59 Intake Total 2550 / 2550 4185 / 4185 1690 / 1690 Output Total 3250 / 3250 1625 / 1625 Balance 2550 / 2550 935 / 935 65 / 65 Lab / Micro Data 11/25/24 07:43 11/26/24 06:14 Labs: Laboratory Results - last 24 hr 11/25/24 12:07: POC Glucose 149 H 11/25/24 17:16: POC Glucose 118 H 11/25/24 21:28: POC Glucose 215 H 11/25/24 23:20: POC Glucose 122 H 11/26/24 06:14: Sodium 138, Potassium 3.0 L, Chloride 102, Carbon Dioxide 23.8, Anion Gap 12, BUN 60 H, Creatinine 1.60 H, Estim Creat Clear Calc 38.53 L, Est GFR (MDRD) Non-Af 47 L, BUN/Creatinine Ratio 37.7 H, Glucose 118 H, Calcium 8.3 11/26/24 06:20: POC Glucose 133 H 11/26/24 11:45: POC Glucose 108 H Micro: Microbiology 11/24/24 22:57 Urine Catheter - Mackenzie Urine Culture - Preliminary Presumptive C albicans 11/24/24 20:32 Stool Stool Lactoferrin - Final 11/24/24 20:32 Stool Enteric Bacteriology - Final 11/24/24 20:32 Stool Clostridioides difficile (PCR) - Final Physical Exam Narrative Alert and oriented x 3, no apparent distress S1, S2, RRR Abdomen soft, nontender, ostomy No edema Mackenzie with clear yellow urine in bag Assessment & Plan Assessment/Plan (1) MADELEINE (acute kidney injury): (2) Nausea & vomiting: PLAN: Plan 69-year-old male presented emergency room with complaints of nausea and vomiting, weakness, admitted for severe MADELEINE and acute pancreatitis (lipase 1112 on admission, noncontrast CT abdomen/pelvis no evidence of pancreatitis). Nonoliguric MADELEINE with normal baseline creatinine likely from significant GI losses, volume depletion with concurrent diuretic use. Blood pressures slightlylow on admission to ER. Blood pressures have improved. Patient was given IV fluids in ER and also on maintenance IV fluids. CT abd no hydronephrosis urine output ok cr is better 11/26/24 1220 <Electronically signed by Cy Arnett MD> Cosigner Signature (if applicable): CC: ~ Signed [facility] Work Phone: 1(900) 685-259204-21-2025 Progress note Author Miguel Angel [facility] Note Date/Time November 25, 2024 6:4 0pm [facility] Medical Records Department [address] [place] [address] Progress Note - Hospitalist 11/25/24 1824 MR#: [id number] Acct: [id number] Name: YONY VEGA Rep #:[id number] : 1955 69 From: Migule Angel Montez DO PCP: Dr. Kendy Modi MD Status:ADM IN Location: [place] [address] Reason for Visit Reason for Visit: Diagnoses Acute pancreatitis without necrosis or infection, unspecified (11/24/24) Acute kidney failure, unspecified (11/24/24) Unspecified kidney failure (11/24/24) Subjective Subjective Patient was seen and examined today, his creatinine is improved-this morning it was 2.6, potassium was low at 2.8 and he was given oral potassium. I talked briefly with nephrology about his care. Objective Data Objective Data Vital Signs: Vital Signs Temp Pulse Resp BP Pulse Ox O2 Del Method 98.3 F 71 15 129/63 H 100 Room Air 11/25/24 15:32 11/25/24 15:32 11/25/24 15:32 11/25/24 15:32 11/25/24 15:32 11/25/24 15:42 Oxygen Delivery Method Room Air Weight: 60.9 kg Body Mass Index (BMI) 21.0 Intake & Output: Intake and Output for Last 24 Hours 11/23/24 11/24/24 11/25/24 23:59 23:59 23:59 Intake Total 2550 / 2550 3210 / 3210 Output Total 1900 / 1900 Balance 2550 / 2550 1310 / 1310 Lab / Micro Data 11/25/24 07:43 11/25/24 07:43 Labs: Laboratory Results - last 24 hr 11/24/24 19:55: WBC 8.9, RBC 4.40 L, Hgb 12.8 L, Hct 35.7 L, MCV 81.1, MCH 29.1,MCHC 35.9, RDW Std Deviation 40.2, RDW Coeff of Maia 13.8, Plt Count 225, MPV 10.5, Immature Gran % (Auto) 0.500, Neut % (Auto) 79.5 H, Lymph % (Auto) 9.1 L, Ford % (Auto) 10.2 H, Eos % (Auto) 0.6, Baso % (Auto) 0.1, Absolute Neuts (auto)7.1, Absolute Lymphs (auto) 0.81 L, Nucleated RBC % 0, Sodium 128 L, Potassium 3.1 L, Chloride 82 L, Carbon Dioxide 21.0, Anion Gap 24 H, BUN 143 H*, Creatinine 4.42 H, Estim Creat Clear Calc 14.18 L, Est GFR (MDRD) Non-Af 14 L, BUN/Creatinine Ratio 32.4 H, Glucose 181 H, Calcium 9.3, Phosphorus 6.9 H, Magnesium 2.4 H, Total Bilirubin 0.31, AST 34, ALT 32, Alkaline Phosphatase 116, Total Protein 7.7, Albumin 4.2, Globulin 3.5, Albumin/Globulin Ratio 1.2, [id number] H 11/24/24 22:57: Urine Color Yellow, Urine Clarity Sl. Cloudy, Urine pH 5.0, Ur Specific Cor[place]le 1.015, Urine Protein 30 H, Urine Glucose (UA) Normal, Urine Ketones Negative, Urine Occult Blood 50 H, Urine Nitrite Negative, Urine Bilirubin Negative, Urine Urobilinogen Normal, Ur Leukocyte Esterase 500 H, Urine RBC 0-5 SEEN, Urine WBC 25-50 SEEN, Ur Squamous Epith Cells 0 SEEN, Urine Bacteria 1+, Hyaline Casts 0-5 SEEN, Urine Mucus 0 SEEN, Urine Yeast 1+, Ur Random Sodium 38, Urine Creatinine 42.10 11/24/24 23:46: POC Glucose 147 H 11/25/24 04:10: WBC 7.2, RBC 3.45 L, Hgb 9.9 L, Hct 28.7 L, MCV 83.2, MCH 28.7, MCHC 34.5, RDW Std Deviation 41.4, RDW Coeff of Maia 13.8, Plt Count 173, MPV 10.8, Sodium 134, Potassium 3.2 L, Chloride 96 L, Carbon Dioxide 22.8, Anion Gap15, BUN 116 H*, Creatinine 2.95 H, Estim Creat Clear Calc 20.93 L, Est GFR (MDRD) Non-Af 23 L, BUN/Creatinine Ratio 39.3 H, Glucose 112 H, Calcium 8.2 11/25/24 05:16: POC Glucose 87 11/25/24 07:43: WBC 7.2, RBC 3.56 L, Hgb 10.4 L, Hct 29.0 L, MCV 81.5, MCH 29.2,MCHC 35.9, RDW Std Deviation 40.8, RDW Coeff of Maia 13.7, Plt Count 168, MPV 9.8, Sodium 136, Potassium 2.8 L, Chloride 99, Carbon Dioxide 22.4, Anion Gap 14, BUN 104 H*, Creatinine 2.60 H, Estim Creat Clear Calc 23.75 L, Est GFR (MDRD) Non-Af 26 L, BUN/Creatinine Ratio 40.0 H, Glucose 102 H, Calcium 8.3, Lipase 1331 H 11/25/24 12:07: POC Glucose 149 H 11/25/24 17:16: POC Glucose 118 H Micro: Microbiology 11/24/24 20:32 Stool Stool Lactoferrin - Final 11/24/24 20:32 Stool Enteric Bacteriology - Final 11/24/24 20:32 Stool Clostridioides difficile (PCR) - Final Radiography Diagnostic Testing: Radiology Impression Abdomen/Pelvis CT 11/24/24 19:32 IMPRESSION: Cholelithiasis. No radiographic evidence of acute cholecystitis. Markedly distended stomach with air-fluid level, no wall thickening or adjacent stranding. Underlying gastric outlet obstruction can not be excluded. Bilateral ventral ileostomies with a small right ventral parastomal hernia containing a small focal loop of small bowel. No wall thickening or adjacent stranding is demonstrated. [facility] Physical Exam Const alert, oriented x3 and no apparent distress Constitutional Narrative: Patient appears older than his stated age General Appearance: cooperative, well kempt and well developed Orientation / Consciousness: awake, oriented to person, oriented to place and oriented to time HEENT normocephalic and moist oral mucous membranes Eyes PERRL, EOMs intact bilaterally and conjunctivae normal Neck supple, no JVD, thyroid normal and no carotid bruits General: trachea midline Resp normal respiratory effort and clear to auscultation bilaterally Auscultation: Negative for rales, rhonchi or wheezes Cardio regular rate, regular rhythm, no murmurs, no rub and no gallops GI normal to inspection, nondistended, normoactive bowel sounds, soft to palpation,non-tender and non-distended GI Narrative: Patient has an ileostomy in place and a suprapubic catheter Extremity no clubbing, cyanosis or edema Skin no rashes or lesions noted General Skin Exam: no breakdown Neuro oriented x3, CN's II-XII intact bilaterally, no focal motor deficits and no sensory deficits noted Sensorium / Orientation: awake and alert Speech: speech normal Psych affect normal Assessment & Plan Assessment/Plan (1) MADELEINE (acute kidney injury): PLAN: Plan 1. Acute kidney injury-secondary to nausea and vomiting-nausea and vomiting is resolved at this time, labs will be monitored #2 type 2 diabetes with an patient will remain on his present medication and blood sugars will be monitored he will receive sliding scale insulin #3 recent urinary tract infection with Klebsiella pneumoniae-I will transition the patient over to oral antibiotics Total clinical time spent by myself addressing the patient's medical issues, reviewing all of his data, and collaborating with the patient's care team: 35 minutes Charges/Coding Visit Charges Inpatient E&M: 81035 Subs Hosp L2 11/25/24 1840 <Electronically signed by Miguel Angel Montez DO> Cosigner Signature (if applicable): CC: ~ Signed [facility] Work Phone: 1(446) 584-728904-21-2025 History and physical note Author Claudio Devlin [facility] Note Date/Time November 24, 2024 11: 58pm [facility] Medical Records Department [address] [place] [address] H&P Exam - Hospitalist 11/24/242142 MR#: [id number] Acct: [id number] Name: YONY VEGA Rep #:[id number] : 1955 [id number] From: Claudio farooq DO PCP: Dr. Kendy Modi MD Status:ADM IN Location: [facility] [id number] HPI - General General Date of Admission: 11/24/24 Date of Service: 11/24/24 Chief Complaint: Nausea/vomiting with dehydration and weakness HPI Narrative YONY VEGA, is a 69 M who presented to [facility] ED on 11/24/2024 with nausea/vomiting with dehydration and weakness. Patient was recently hospitalized here from 10/10-10/18. Initially presented with confusion and dyspnea concerning for recurrent UTI in setting of chronic suprapubic catheter. However was found to NSTEMI suspected secondary to new HFrEF with EF 35 to 40%, severe LV segmental wall motion abnormalities and stage III diastolicdysfunction. Cardiology followed and plan was for stress test once patient was medically optimized. Had significant improvement on heavy IV Lasix and was ableto be weaned off of oxygen completely. Hospitalization was complicated by MADELEINE but this resolved by discharge back to his baseline creatinine of 0.9. Was discharged home on p.o. Lasix 40 mg twice daily. Saw cardiology in the office on 10/30 with no changes made to medications and plan for repeat echo in 1 month. Patient began to have nausea with vomiting intermittently over the past week. Saw his PCP earlier this week and had both UA and labs drawn on 11/19. UA was apparently infectious appearing so he was started on ciprofloxacin. However, more concerning finding was significantly worsened creatinine 3.52 and BUN 109. Was told by PCP to come to the ED over the weekend if his symptoms worsened. Hereported poor p.o. intake over the past several days and has been drinking very little and feels very dehydrated and weak. In the ED initial BP 92/57 but heartrate in the mid 80s and stable on room air. Labs notable for sodium 128, potassium 3.1, chloride 82, bicarb 21, creatinine 4.42, BUN 143. Lipase 1112. CT abdomen pelvis without contrast showed normal pancreas, cholelithiasis without evidence of acute cholecystitis, markedly distended stomach with air-fluid level but no wall thickening or adjacent stranding and small bowel loops appear unremarkable. Given these findings, hospitalist was contacted for admission. I saw the patient at bedside in the ED, present. Patient was very pleasantand was laying back comfortably in bed and conversing normally. He denied any abdominal pain but did report pain in his mid back area. On exam he had no abdominal pain on palpation or abdominal distention noted. He and his noted that his colostomy output has been more liquidy and slightly heavier than normal for about a week. He reports feeling like his mouth is very dry and thathe is thirsty. Does report change in taste. He reports mild mental fogginess but is alert and oriented x 3; agrees that he has seemed a bit foggier mentally than normal. He has continued to have fairly good urine output at homeper and has been taking the p.o. Lasix twice daily as prescribed. Notes that his legs have felt very weak and he has had significant difficulty getting out of bed over the past few days. Has gotten 2 L of IV fluids in the ED thus far and does feel a bit better with this. Was also given doses of IV Zofran, morphine and Reglan with improvement in his nausea and pain. He denies any fevers or chills. No other acute concerns at this time. [facility] Medical History Ileostomy present Colostomy in place Orthostatic hypotension Essential hypertension Loss of hearing Wears glasses Cancer Depression Insulin dependent diabetes mellitus Walker as ambulation aid Arthritis High cholesterol Restless legs Injury of back Injury of head and neck Syncope Dietary restriction Gastric reflux Non-smoker CPAP (continuous positive airway pressure) dependence Shortness of breath on exertion Leg cramps History of pain when walking History of echocardiogram History of stress test Cardiology follow-up encounter History of heart attack Colorectal cancer Dysphagia invasive rectal adenocarcinoma Diabetic neuropathy Restrictive lung disease Type 2 diabetes mellitus Anxiety disorder GERD (gastroesophageal reflux disease) Carotid artery disease Obstructive sleep apnea 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 Peripheral vascular occlusive disease CVA (cerebral vascular accident) ALEJANDRO (obstructive sleep apnea) Dyslipidemia HTN (hypertension) Home Medications ?Medication ?Instructions ?Recorded ?Last Taken ?Type aspirin 81 mg chewable tablet 81 mg PO DAILY heart hea lth 03/20/16 03/10/23 History insulin lispro 100 unit/mL 1 sliding scale dose subcut TIDCM 09/26/21 03/10/23 History subcutaneous pen (Humalog KwikPen diabetes (U-100) Insulin) clopidogrel 75 mg tablet 75 mg PO DAILY blood thinner #90 10/10/23 Unknown Rx tabs pantoprazole 40 mg tablet,delayed 40 mg PO DAILY GERD 12/01/23 Unknown History release calcium carbonate (Tums) 300 mg PO TID PRN dyspepsia 01/31/24 Unknown History melatonin 3 mg tablet 3 mg PO QHS sleep 01/31/24 U nknown History sodium chloride 0.65 % nasal spray 2 spray intranasal Q4H PRN dry 01/31/24 Unknown History aerosol (Tennga Saline) nasal passages carvedilol 6.25 mg tablet 6.25 mg PO BID blood pressur e #0 02/09/24 Unknown Rx tabs acetaminophen 325 mg capsule 650 mg PO Q6H PRN pain Unknown History atorvastatin 20 mg tablet 20 mg PO QDAY cholesterol Unknown History insulin glargine-yfgn 100 unit/mL 45 unit subcut BID d iabetes 05/21/24 Unknown History (3 mL) subcutaneous pen (Semglee (insulin glargine-yfgn) Pen) gabapentin 300 mg capsule 300 mg PO DAILY nerve pain 0 08/25/24 Unknown History metformin 500 mg tablet,extended 500 mg PO BID diabete s 08/25/24 Unknown History release 24 hr duloxetine 30 mg capsule,delayed 30 mg PO QDAY 5 Unknown History release furosemide 40 mg tablet 40 mg PO BIDLX 30 days #60 t abs 10/30/24 Unknown Rx hydralazine 10 mg tablet 10 mg PO 4X/DAY 30 days #120 tabs 10/30/24 Unknown Rx isosorbide mononitrate 30 mg 30 mg PO DAILY 30 days #3 0 tabs 10/30/24 Unknown Rx tablet,extended release 24 hr Allergy/AdvReac Type Severity Reaction Status Date / Time No Known Allergies Allergy Verified 11/24/24 19:19 Family History Father CAD (coronary artery disease) Hypertension Cancer leukemia Diabetes Heart disease High cholesterol Mother CVA (cerebral vascular accident) Diabetes Breast cancer Brother Diabetes Surgical History History of bilateral cataract extraction History of left heart catheterization (LHC) (~01/22/15) History of right and left heart catheterization (LHC) (~12/25/14) History of eye surgery PTCA Left Anterior Tibial and Paroneal Artery History of coronary artery stent placement (01/02/15) H/O coronary artery bypass surgery (05/30/08) History of right-sided carotid endarterectomy Excision Max.Zygoma Face Tumor History of tonsillectomy History of herniorrhaphy Social History household members: spouse Smoking Status: Never smoker alcohol intake: never substance use type: does not use caffeine: Yes what type of physical activity do you participate in: none ROS Constitutional Constitutional: Reports fatigue and weakness; Denies chills or fever(s) Eyes Eyes: Denies change in vision Cardiovascular Cardiovascular: Denies chest pain Respiratory/Chest Respiratory/Chest: Denies cough, shortness of breath at rest or shortness of breath with exertion Gastrointestinal Gastrointestinal: Reports abdominal pain, loose stools, nausea and vomiting Genitourinary Genitourinary: Denies burning urination, dysuria or urinary frequency Musculoskeletal Musculoskeletal: Reports back pain; Denies arthralgias or myalgias Neurologic Neurologic: Denies dizziness or headache(s) Vital Signs Vital Signs Vital Signs: 11/24/24 19:16 11/24/24 19:18 11/24/24 20:18 Temperature 98.3 F 98.3 F 98.3 F Temperature Source Temporal Oral Oral Pulse Rate 81 81 79 Respiratory Rate 18 18 13 Blood Pressure 92/57 L 92/57 L 164/70 H Blood Pressure Mean 68 68 101 Pulse Ox 99 99 97 Oxygen Delivery Method Room Air Room Air Room Air 11/24/24 21:00 Temperature 98.3 F Temperature Source Oral Pulse Rate 74 Respiratory Rate 12 Blood Pressure 147/71 H Blood Pressure Mean 96 Pulse Ox 98 Oxygen Delivery Method Room Air Weight Weight: 61.8 kg Body Mass Index (BMI) 21.3 Physical Exam Const alert, oriented x3, no apparent distress and average body habitus Constitutional Narrative: Pleasant upper middle-aged male, alert and oriented x 3, mildly fatigued appearing but otherwise laying back comfortably in bed, conversing normally and in no acute distress. General Appearance: cooperative and comfortable HEENT normocephalic, head/scalp atraumatic, hearing grossly normal bilaterally and nasal mucous membranes and turbinates normal HEENT Narrative: Dry mucous membranes. Eyes PERRL, EOMs intact bilaterally and conjunctivae normal Neck full ROM Chest inspection of chest normal Resp normal respiratory effort, normal air movement, no use of accessory muscles and clear to auscultation bilaterally Cardio regular rate, regular rhythm, no murmurs and peripheral pulses 2+ throughout GI GI Narrative: Abdomen soft, nondistended and nontender to palpation. Hypoactive bowel sounds noted. Back/Spine normal ROM Extremity normal to inspection and no pedal edema Skin no rashes or lesions noted Psych mental status grossly normal Results Lab / Micro Data 11/24/24 19:55 11/24/24 19:55 Labs: Laboratory Results - last 24 hr 11/24/24 19:55: WBC 8.9, RBC 4.40 L, Hgb 12.8 L, Hct 35.7 L, MCV 81.1, MCH 29.1,MCHC 35.9, RDW Std Deviation 40.2, RDW Coeff of Maia 13.8, Plt Count 225, MPV 10.5, Immature Gran % (Auto) 0.500, Neut % (Auto) 79.5 H, Lymph % (Auto) 9.1 L, Ford % (Auto) 10.2 H, Eos % (Auto) 0.6, Baso % (Auto) 0.1, Absolute Neuts (auto)7.1, Absolute Lymphs (auto) 0.81 L, Nucleated RBC % 0, Sodium 128 L, Potassium 3.1 L, Chloride 82 L, Carbon Dioxide 21.0, Anion Gap 24 H, BUN 143 H*, Creatinine 4.42 H, Estim Creat Clear Calc 14.18 L, Est GFR (MDRD) Non-Af 14 L, BUN/Creatinine Ratio 32.4 H, Glucose 181 H, Calcium 9.3, Total Bilirubin 0.31, AST 34, ALT 32, Alkaline Phosphatase 116, Total Protein 7.7, Albumin 4.2, Globulin 3.5, Albumin/Globulin Ratio 1.2, Lipase 1112 H Micro: Microbiology 11/24/24 20:32 Stool Stool Lactoferrin - Final Assessment & Plan Assessment/Plan (1) MADELEINE (acute kidney injury): (2) Uremia: (3) Pancreatitis: PLAN: Plan Patient is a 69-year-old male who presented to [facility] ED on 11/24/24 with nausea/vomiting with dehydration and weakness. 1. Severe MADELEINE with uremia ? Admit under inpatient status to PCU. Nephrology consulted. Creatinine 4.42, BUN 143 on admit. Creatinine 0.8, BUN 14 on recent hospital discharge on 10/18. BMP on 11/19 with creatinine 3.52, BUN 109 so suspect steady worsening recently. Very likely prerenal etiology secondary to overdiuresis and GI losses from increased to output and nausea/vomiting. Had acute HFrEF on admission and was discharged on p.o. Lasix 40 mg twice daily and was previously not on anyhome diuretic. Urine sodium and creatinine ordered to calculate FeNa. Given 2 L of IV fluids in the ED and will run another 1 L of fluids as maintenance fluids tonight. Has symptoms of uremia including nausea/vomiting, change in taste and mental fogginess. Otherwise labs stable and patient with no volume overload, no acute dialysis needs. Monitor daily BMP and urine output. Brieflydiscussed with patient and he is not sure yet if he would want temporary dialysis if needed, is open to discussing this further. 2. Acute pancreatitis, concern for gastric outlet obstruction ? Lipase 1112 and patient with mild epigastric pain radiating to the back on admit. CT abdomen pelvis with no evidence of pancreatitis but given elevated lipase and pain, meets criteria for pancreatitis. Unclear etiology. Does not use alcohol. Cholelithiasis noted on CT but no evidence of acute cholecystitis and liver enzymes normal. CT did also show marked distention of the stomach with concern for possible gastric outlet obstruction. However, abdomen is not distended and patient comfortable at rest after doses of medications for nausea and pain. Suspect mild functional gastroparesis; gave dose of IV Reglan in the ED and will order Reglan as needed for now. Giving IV fluids as noted above. Okay for clear liquid diet for now. 3. Hyponatremia ? Sodium 128 on admit. Chloride very low at 82. Presume secondary to dehydration from diuresis and GI losses. Given heavy IV fluids resuscitation onadmit. Follow-up a.m. sodium level. 4. Hypokalemia ? Potassium 3.1 on admit. Mag normal, Phos elevated. Presume secondary to GI losses. Will replete as needed. 5. Chronic HFrEF, history of CAD with CABG and stenting, history of PAD, history of carotid stenosis with right CEA, history of CVA, hypertension, hyperlipidemia ? Follows with cardiology. Had prior history of heart failure due to ischemic cardiomyopathy with recovered ejection fraction. History of CABG x 5 in 2007 and stenting in 2014. On recent admission in October was found to be volume overloaded and echo showed reduced EF of 35 to 40% with stage III diastolic dysfunction and severe LV segmental wall motion abnormalities. Cardiology recommended optimizing patient during hospitalization with plan for outpatient stress test. Was scheduled for stress test on 11/26 and for repeat echo on 12/04. Would recommend discussing with cardiology office if reasonable to complete these while inpatient versus waiting till after this admission. Continue home aspirin, statin, Coreg and nitrate. Will hold home Lasix and hydralazine for now. Will also hold home Plavix for now in case of need for HD catheter placement for dialysis. 6. Urinary retention with chronic suprapubic catheter ? Suprapubic catheter in place, site appears clean with no surrounding erythema or discharge. UA on admit stable from previous, no concern for UTI. No furtherinpatient needs. 7. Acute debility ? PT/OT/case management consulted. Patient lives at home with and has decent functional status at baseline. Presume that acute weakness is secondary to dehydration and kidney failure with uremia as noted above. Appreciate therapy recommendations. 8. Type 2 diabetes mellitus with diabetic neuropathy ? Home regimen of insulin glargine 45 units twice daily, Humalog sliding scale with meals, metformin. Last A1c 7.4% in 04/2024. Patient on clear liquid diet at this time. Will treat with Lantus 15 units twice daily and Humalog sliding scale with medium dosing every 6 hours for now, adjust as needed. Continue homegabapentin. 9. GERD ? Continue home PPI. 10. History of colon cancer ? S/p colostomy placement and ostomy revision back in November 2023. Stable. 11. Depression/anxiety ? Continue home duloxetine. DVT prophylaxis: Heparin subcu CODE STATUS: DNR CCA, DNI Expected disposition: TBD Total clinical time spent by myself addressing the patient's medical issues, reviewing all the data, and collaborating with patient's care team: 75 minutes. Charges/Coding Visit Charges Inpatient E&M: 35647 Init Hosp L3 11/24/24 9767 <Electronically signed by Claudio Devlin DO> Cosigner Signature (if applicable): CC: Dr. Claudio Devlin DO; Dr. Kendy Modi MD~ Signed [facility] Work Phone: [phone]) 102-750104-21-2025 Discharge summary Author Dannielle Boyce [facility] Note Date/Time November 24, 2024 10: 57pm [facility] Medical Records Department [address] [place] [address] Emergency Department Summary 11/24/24 MR#: [id number] Acct: [id number] Name: YONY VEGA Rep #:[id number] : 1955 69 From: Dannielle PARK PCP: Dr. Kendy Modi MD Status:ADM IN Location: [place] [id number] 1 [facility] <VIVIAN Umana - Last Filed: 11/24/24 21:54> History of Present Illness Chief Complaint: Nausea/Vomiting/Diarrhea Narrative Narrative: Patient presenting today with nausea and vomiting he has had intermittently overthe past week. He did see his PCP for this early last week, he has a suprapubiccatheter due to urinary retention, UA was obtained and he was started on ciprofloxacin for a UTI. He was prescribed Phenergan which has not been helping. He had outpatient labs last week that showed an MADELEINE, he was told to come into the emergency department over the weekend if his symptoms got any worse. He reports that he is drinking very little and feels dehydrated. He hasa history of colorectal cancer with ileostomy, he has had increased watery stools which is unusual for him. He was on antibiotics in October, he denies any history of C. difficile. He reports that he is now incredibly weak as a result of the dehydration, prompting him to come in. He denies fevers, chills, abdominal pain, hematemesis, and blood in the stool. [facility] <VIVIAN Umana - Last Filed: 11/24/24 21:54> [facility] Medical History Ileostomy present Colostomy in place Orthostatic hypotension Essential hypertension Loss of hearing Wears glasses Cancer Depression Insulin dependent diabetes mellitus Walker as ambulation aid Arthritis High cholesterol Restless legs Injury of back Injury of head and neck Syncope Dietary restriction Gastric reflux Non-smoker CPAP (continuous positive airway pressure) dependence Shortness of breath on exertion Leg cramps History of pain when walking History of echocardiogram History of stress test Cardiology follow-up encounter History of heart attack Colorectal cancer Dysphagia invasive rectal adenocarcinoma Diabetic neuropathy Restrictive lung disease Type 2 diabetes mellitus Anxiety disorder GERD (gastroesophageal reflux disease) Carotid artery disease Obstructive sleep apnea 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 Peripheral vascular occlusive disease CVA (cerebral vascular accident) ALEJANDRO (obstructive sleep apnea) Dyslipidemia HTN (hypertension) Home Medications ?Medication ?Instructions ?Recorded ?Last Taken ?Type aspirin 81 mg chewable tablet 81 mg PO DAILY heart hea lth 03/20/16 03/10/23 History insulin lispro 100 unit/mL 1 sliding scale dose subcut TIDCM 09/26/21 03/10/23 History subcutaneous pen (Humalog KwikPen diabetes (U-100) Insulin) clopidogrel 75 mg tablet 75 mg PO DAILY blood thinner #90 10/10/23 Unknown Rx tabs pantoprazole 40 mg tablet,delayed 40 mg PO DAILY GERD 12/01/23 Unknown History release calcium carbonate (Tums) 300 mg PO TID PRN dyspepsia 01/31/24 Unknown History melatonin 3 mg tablet 3 mg PO QHS sleep 01/31/24 U nknown History sodium chloride 0.65 % nasal spray 2 spray intranasal Q4H PRN dry 01/31/24 Unknown History aerosol (Tennga Saline) nasal passages carvedilol 6.25 mg tablet 6.25 mg PO BID blood pressur e #0 02/09/24 Unknown Rx tabs acetaminophen 325 mg capsule 650 mg PO Q6H PRN pain Unknown History atorvastatin 20 mg tablet 20 mg PO QDAY cholesterol Unknown History insulin glargine-yfgn 100 unit/mL 45 unit subcut BID d iabetes 05/21/24 Unknown History (3 mL) subcutaneous pen (Semglee (insulin glargine-yfgn) Pen) gabapentin 300 mg capsule 300 mg PO DAILY nerve pain 0 08/25/24 Unknown History metformin 500 mg tablet,extended 500 mg PO BID diabete s 08/25/24 Unknown History release 24 hr duloxetine 30 mg capsule,delayed 30 mg PO QDAY 5 Unknown History release furosemide 40 mg tablet 40 mg PO BIDLX 30 days #60 t abs 10/30/24 Unknown Rx hydralazine 10 mg tablet 10 mg PO 4X/DAY 30 days #120 tabs 10/30/24 Unknown Rx isosorbide mononitrate 30 mg 30 mg PO DAILY 30 days #3 0 tabs 10/30/24 Unknown Rx tablet,extended release 24 hr Allergy/AdvReac Type Severity Reaction Status Date / Time No Known Allergies Allergy Verified 11/24/24 19:19 Family History Father CAD (coronary artery disease) Hypertension Cancer leukemia Diabetes Heart disease High cholesterol Mother CVA (cerebral vascular accident) Diabetes Breast cancer Brother Diabetes Surgical History History of bilateral cataract extraction History of left heart catheterization (LHC) (~01/22/15) History of right and left heart catheterization (LHC) (~12/25/14) History of eye surgery PTCA Left Anterior Tibial and Paroneal Artery History of coronary artery stent placement (01/02/15) H/O coronary artery bypass surgery (05/30/08) History of right-sided carotid endarterectomy Excision Max.Zygoma Face Tumor History of tonsillectomy History of herniorrhaphy Social History household members: spouse Smoking Status: Never smoker alcohol intake: never substance use type: does not use caffeine: Yes what type of physical activity do you participate in: none ROS <VIVIAN Umana - Last Filed: 11/24/24 21:54> ROS ED Constitutional Constitutional ED: Denies chills or fever(s) Cardiovascular Cardiovascular: Denies chest pain Respiratory/Chest Respiratory/Chest: Denies dyspnea Gastrointestinal Gastrointestinal: Reports diarrhea, nausea and vomiting; Denies abdominal pain Genitourinary Genitourinary ED: Denies hematuria or urinary frequency Musculoskeletal Musculoskeletal: Denies arthralgias or myalgias Integumentary Denies rash Neurologic Neurologic: Reports weakness EXAM <VIVIAN Umana - Last Filed: 11/24/24 21:54> Physical Exam Const Vital Signs: 11/24/24 19:16 11/24/24 19:18 11/24/24 20:18 Temperature 98.3 F 98.3 F 98.3 F Temperature Source Temporal Oral Oral Pulse Rate 81 81 79 Respiratory Rate 18 18 13 Blood Pressure 92/57 L 92/57 L 164/70 H Blood Pressure Mean 68 68 101 Pulse Ox 99 99 97 Oxygen Delivery Method Room Air Room Air Room Air 11/24/24 21:00 11/24/24 22:00 Temperature 98.3 F 98.3 F Temperature Source Oral Oral Pulse Rate 74 76 Respiratory Rate 12 18 Blood Pressure 147/71 H 159/76 H Blood Pressure Mean 96 103 Pulse Ox 98 97 Oxygen Delivery Method Room Air Room Air Positive well nourished, well developed and no apparent distress General Appearance ED: well developed HEENT Reports normocephalic, head/scalp atraumatic and dry mucous membranes Mouth ED: Yes dry mucous membranes Mouth: dry mucous membranes Eyes PERRL and EOMs intact bilaterally Neck full ROM and supple Chest Wall inspection of chest normal Resp normal respiratory effort and clear to auscultation bilaterally Cardio regular rate and regular rhythm GI soft to palpation, non-distended and no masses GI Narrative: Mild left lower quadrant tenderness to palpation, no rigidity or guarding. Ileostomy with loose stool, previous colostomy site with no surrounding erythemaor discharge. Narrative: Suprapubic catheter site with no surrounding erythema or discharge. Back/Spine normal ROM and normal to inspection Extremity normal to inspection and full ROM Neuro oriented x3, moves all extremities, no focal motor deficits and no sensory deficits noted Sensorium / Orientation: awake and alert Psych mental status grossly normal and thought process normal Skin no rashes or lesions noted and no wounds <Dr. Ross Crump DO - Last Filed: 11/24/24 22:57> Physical Exam Const Vital Signs: 11/24/24 19:16 11/24/24 19:18 11/24/24 20:18 Temperature 98.3 F 98.3 F 98.3 F Temperature Source Temporal Oral Oral Pulse Rate 81 81 79 Respiratory Rate 18 18 13 Blood Pressure 92/57 L 92/57 L 164/70 H Blood Pressure Mean 68 68 101 Pulse Ox 99 99 97 Oxygen Delivery Method Room Air Room Air Room Air 11/24/24 21:00 11/24/24 22:00 Temperature 98.3 F 98.3 F Temperature Source Oral Oral Pulse Rate 74 76 Respiratory Rate 12 18 Blood Pressure 147/71 H 159/76 H Blood Pressure Mean 96 103 Pulse Ox 98 97 Oxygen Delivery Method Room Air Room Air MDM <VIVIAN Umana - Last Filed: 11/24/24 21:54> [facility] MDM Narrative Medical decision making narrative: Patient presenting today with nausea and vomiting he has had over the past week. He does appear dehydrated and is hypotensive at 92/57, he will be given IV fluids. When reviewing previous labs, he did have an MADELEINE with a creatinine of 3.52 5 days ago, this was increased from 1.23 just the month before. Today his creatinine is 4.42 and his BUN is 143. He has an anion gap of 24, sodium 128, potassium 3.1. His lipase is elevated at 1112 consistent with pancreatitis. Stool culture will be obtained given his diarrhea. He is currently being treated for a UTI with Cipro, urine culture was reviewed and grew Klebsiella pneumonia which is sensitive to Cipro. I do not feel we need to repeat another UA at this time. CT scan of the abdomen and pelvis with IV contrast will be obtained. He will be admitted for his pancreatitis and MADELEINE. Patient has been given IV fluids, Zofran, and morphine. Lab Data Attestation: I reviewed the patient's lab results. Labs: Laboratory Results - last 24 hr 11/24/24 19:55 WBC 8.9 RBC 4.40 L Hgb 12.8 L Hct 35.7 L MCV 81.1 MCH 29.1 MCHC 35.9 RDW Std Deviation 40.2 RDW Coeff of Maia 13.8 Plt Count 225 MPV 10.5 Immature Gran % (Auto) 0.500 Neut % (Auto) 79.5 H Lymph % (Auto) 9.1 L Ford % (Auto) 10.2 H Eos % (Auto) 0.6 Baso % (Auto) 0.1 Absolute Neuts (auto) 7.1 Absolute Lymphs (auto) 0.81 L Nucleated RBC % 0 Sodium 128 L Potassium 3.1 L Chloride 82 L Carbon Dioxide 21.0 Anion Gap 24 H BUN 143 H* Creatinine 4.42 H Estim Creat Clear Calc 14.18 L Est GFR (MDRD) Non-Af 14 L BUN/Creatinine Ratio 32.4 H Glucose 181 H Calcium 9.3 Total Bilirubin 0.31 AST 34 ALT 32 Alkaline Phosphatase 116 Total Protein 7.7 Albumin 4.2 Globulin 3.5 Albumin/Globulin Ratio 1.2 Lipase 1112 H Radiography Diagnostic Testing: Clinical Impression(s) from Imaging Studies Abdomen/Pelvis CT 11/24/24 19:32 IMPRESSION: Cholelithiasis. No radiographic evidence of acute cholecystitis. Markedly distended stomach with air-fluid level, no wall thickening or adjacent stranding. Underlying gastric outlet obstruction can not be excluded. Bilateral ventral ileostomies with a small right ventral parastomal hernia containing a small focal loop of small bowel. No wall thickening or adjacent stranding is demonstrated. Reading Location: [facility] <Dr. Ross Crump, DO - Last Filed: 11/24/24 22:57> [facility] Lab Data Labs: Laboratory Results - last 24 hr 11/24/24 19:55 WBC 8.9 RBC 4.40 L Hgb 12.8 L Hct 35.7 L MCV 81.1 MCH 29.1 MCHC 35.9 RDW Std Deviation 40.2 RDW Coeff of Maia 13.8 Plt Count 225 MPV 10.5 Immature Gran % (Auto) 0.500 Neut % (Auto) 79.5 H Lymph % (Auto) 9.1 L Ford % (Auto) 10.2 H Eos % (Auto) 0.6 Baso % (Auto) 0.1 Absolute Neuts (auto) 7.1 Absolute Lymphs (auto) 0.81 L Nucleated RBC % 0 Sodium 128 L Potassium 3.1 L Chloride 82 L Carbon Dioxide 21.0 Anion Gap 24 H BUN 143 H* Creatinine 4.42 H Estim Creat Clear Calc 14.18 L Est GFR (MDRD) Non-Af 14 L BUN/Creatinine Ratio 32.4 H Glucose 181 H Calcium 9.3 Total Bilirubin 0.31 AST 34 ALT 32 Alkaline Phosphatase 116 Total Protein 7.7 Albumin 4.2 Globulin 3.5 Albumin/Globulin Ratio 1.2 Lipase 1112 H Radiography Diagnostic Testing: Clinical Impression(s) from Imaging Studies Abdomen/Pelvis CT 11/24/24 19:32 IMPRESSION: Cholelithiasis. No radiographic evidence of acute cholecystitis. Markedly distended stomach with air-fluid level, no wall thickening or adjacent stranding. Underlying gastric outlet obstruction can not be excluded. Bilateral ventral ileostomies with a small right ventral parastomal hernia containing a small focal loop of small bowel. No wall thickening or adjacent stranding is demonstrated. Reading Location: [facility] Management Discussion w/another healthcare provider: Hospitalist Treatment and Re-Evaluation :: I evaluated the patient with the physician engineer first assistant and agree with their history present illness physical exam and plan of care. My personal evaluation of the patient as documented below Patient presented to the ER with complaints of generalized fatigue/weakness and watery stool output from his colostomy. He states he was in the hospital roughly 1 month ago and on antibiotics at that time. He reports he was seen by his family doctor and had outpatient labs and a urine sample as there was concern for potential UTI causing his symptoms. He states has been taking the Cipro as directed but despite doing this his watery diarrhea and fatigue are worsening and now he also has midepigastric abdominal pain. Secondary to this he presents for evaluation PE: General: Awake alert no acute distress Heart: Regular rate and rhythm HEENT: Mucous membranes are dry and tacky without secondary findings to suggest infection Eyes: No scleral icterus noted Abdomen: There is voluntary guarding in the midepigastric region. Colostomy is in place with watery brown stool in the colostomy bag. There is no obvious distention. No surrounding soft tissue skin changes to suggest infection : Suprapubic catheter in place draining urine into the Mackenzie bag without surrounding soft tissue changes to suggest infection at the insertion site MDM: Patient presented to the ER with stable vitals. With his report of recently being treated for UTI but watery diarrhea and as he has been admitted to the hospital recently there is concern for a infectious diarrhea such as C. difficile Salmonella or E. coli stool stool study will be obtained. Physical exam shows dehydration so there is concern for electrolyte abnormality and/or acute kidney injury. Basic blood work was ordered and is consistent with MADELEINE ashis creatinine is elevated from 1.25 in October to 4.5 today. The patient's lipase is also elevated consistent with pancreatitis. The patient CT scan showed no cyst or pseudocyst of the pancreas but it did show multiple gallstones which could have led to gallstone pancreatitis. The patient also has distentionof his stomach which radiology is concern for potential gastric outlet obstruction. However he has only had 1-2 bouts of vomiting and no obvious distention on exam and therefore I do not feel there is need for emergent transfer of this. Patient can be evaluated by general surgery and/or GI with need for potential EGD or ERCP. he will be given IV hydration secondary to his MADELEINE and will need admitted to the hospital for continued fluid treatment and further consultation. The case was discussed with the hospitalist who agrees toaccept the patient for continued care Discharge Plan Dx/Rx/DC Orders Clinical Impression: Pancreatitis, MADELEINE (acute kidney injury), Dehydration, Diarrhea, Nausea & vomiting Disposition Disposition: Acute Care Hospital [facility] What to do if you have Problems For any increased pain, shortness of breath, bleeding, nausea or vomiting, chestpain, or any unexpected problems, contact your Primary Care Provider. Call [facility] ([phone]) or report to the closest Emergency Room. Call 911 if necessary. 11/24/242153 <Electronically signed by Dannielle PARK> Cosigner Signature (if applicable): 11/24/242256 <Electronically signed by Ross Crump DO> CC: Dr. Kendy Modi MD ~ Signed [facility] Work Phone: 1(423) 331-815104-21-2025 Evaluation note* Diagnosis Onset Date Resolution Status Admit Date MADELEINE (acute kidney injury) inactive November 24, 2024 10:33pm Nausea & vomiting inactive November 062024 10:33pm Pancreatitis inactive November 24, 2024 10:33pm Uremia inactive November 24 10:33pm HFrEF (heart failure with reduced ejection fraction) acute December 092024 1:28pm Dyslipidemia chronic December 09 1:28pm Essential hypertension chronic Ma 2024 1:28pm H/O coronary artery bypass surgery May 30, 2008 chronic December 09, 2024 1:28pm History of coronary artery stent placement January 02, 2015 chronic December 09, 2024 1: 28pm Hyperkalemia inactive December 09 1:28pm HFrEF (heart failure with reduced ejection fraction) acute Augus t 2024 1:18pm Dyslipidemia chronic March 17, 2025 1:18pm Essential hypertension chronic Au daisy 2024 1:18pm H/O coronary artery bypass surgery May 30, 2008 chronic March 17, 2025 1:18pm History of coronary artery stent placement January 02, 2015 chronic March 17 1:18pm Hyperkalemia inactive March 17, 2025 1:18pm [facility] Work Phone: 1(739) 962-372604-21-2025 Evaluation note* Diagnosis Onset Date Resolution Status Admit Date MADELEINE (acute kidney injury) inactive November 24, 2024 10:33pm Nausea & vomiting inactive November 062024 10:33pm Pancreatitis inactive November 24, 2024 10:33pm Uremia inactive November 24 10:33pm HFrEF (heart failure with reduced ejection fraction) acute December 092024 1:28pm Hyperkalemia acute December 09 1:28pm Dyslipidemia chronic December 09 1:28pm Essential hypertension chronic Ma y 2024 1:28pm H/O coronary artery bypass surgery May 30, 2008 chronic December 09, 2024 1:28pm History of coronary artery stent placement January 02, 2015 chronic December 09, 2024 1: 28pm HFrEF (heart failure with reduced ejection fraction) acute Augus t 2024 1:18pm Hyperkalemia acute March 17, 2025 1:18pm Dyslipidemia chronic March 17, 2025 1:18pm Essential hypertension chronic Au daisy 2024 1:18pm H/O coronary artery bypass surgery May 30, 2008 chronic March 17, 2025 1:18pm History of coronary artery stent placement January 02, 2015 chronic March 17 1:18pm [facility] Work Phone: 1(483) 780-912104-20-2025 Radiology Diagnostic study [facility]04-09-2025 Telephone encounter Note* Telephone Encounter - Jazmine Pang LPN - 11/13/2024 3:55 PM EDT Patient is aware to contact PCP for a refill of gabapentin. Patient has not been seen here since 06/2023. Jazmine Pang LPN [facility]04-09-2025 Miscellaneous Notes* Telephone Encounter - Jazmine Pang LPN - 11/13/2024 3:55 PM EDT Patient is aware to contact PCP for a refill of gabapentin. Patient has not been seen here since 06/2023. Jazmine Pang LPN * Telephone Encounter - Kimberlyn Calabrese - 11/13/2024 3:29 PM EDT Patient requesting refill of gabapentin 300mg. Patient uses [facility] for short term, [facility] for long term care 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. Patient is completely out of medication. [facility] Telephone encounter Note * Telephone Encounter - Kimberlyn Calabrese - 11/13/2024 3:29 PM EDT Patient requesting refill of gabapentin 300mg. Patient uses [facility] for short term, [facility] for long term care 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. Patient is completely out of medication. [facility] Work Phone: 1(309) 525-211003-14-2025 Discharge summary Author Nicole Smith [facility] Note Date/Time October 18, 2024 1:3 4pm [facility] Medical Records Department [address] [place] [id number] Discharge Summary 10/18/24 1247 MR#: [id number] Acct: [id number] Name: YONY VEGA Rep #:[id number] : 1955 68 From: Nicole Smith MD PCP: Dr. Kendy Modi MD Status:ADM [facility] Prov[facility] Date of Admission: 10/10/24 Date of Discharge: 10/18/24 Primary Care Physician: Dr. Kendy Modi MD Consultations 10/10/24 05:23 Consult: Cardiology Routine Consulting Provider: Prateek Smith Reason for Consult: NSTEMI EMERGENT Consult: No Notified: Yes Date Notified: 10/10/24 Time Notified: 04:07 Method of Notification: ED Physician Initiated Consult: Linen Room Supervisor / Pulmonary Medicine Routine Consulting Provider: Intensivists/Pulmonary Med Reason for Consult: Resp Failure, HF Exac, Sepsis, UTI, NSTEMI, ? PNA EMERGENT Consult: No Notified: Yes Date Notified: 10/10/24 Time Notified: 04:07 Method of Notification: Text Consult: Urology Routine Consulting Provider: Armando Ritchie Reason for Consult: Chronic urinary retention, complicated UTI, needs catheter change. EMERGENT Consult: No Notified: Yes Date Notified: 10/10/24 Time Notified: 04:46 Method of Notification: Answering Service 10/11/24 08:48 Consult: Infectious Disease Routine Consulting Provider: Chris Collins Reason for Consult: CAUTI, history of fast no bacteria, E. coli/Klebsiella inpast EMERGENT Consult: No Notified: Yes Date Notified: 10/11/24 Time Notified: 08:48 Method of Notification: Text Consult: Nephrology Routine Consulting Provider: Cy Anrett Reason for Consult: MADELEINE, HF exa, on lasix drip, held for now, sepsis? EMERGENT Consult: No Notified: Yes Date Notified: 10/11/24 Time Notified: 08:49 Method of Notification: Text 10/15/24 02:37 Consult: Onc/Wound/optical manager Routine Comment: Reason for Consult:: colostomy/urostomy Comments:: purulent drainage at urostomy site Reason For Visit: RESP FAILURE, HF EXAC, SEPSIS, UTI, MADELEINE, ? PNA, Diagnosis Discharge Diagnosis (1) Combined systolic and diastolic congestive heart failure: Status: Acute Code(s): I50.40 - Unspecified combined systolic (congestive) and diastolic (congestive) heart failure Qualifiers: Heart failure chronicity: acute on chronic Qualified Code(s): I50.43 - Acute on chronic combined systolic (congestive) and diastolic (congestive) heartfailure Plan # Acute hypoxic respiratory failure secondary to acute exacerbation of combined CHF # Elevated troponin # MADELEINE-resolved # Chronic suprapubic catheter with abnormal UA and urine culture but only low colony counts, off abx #Type 2 diabetes mellitus #Hx CAD w/ CABG #history of right CEA #history of stroke #history of PAD #ALEJANDRO #GERD #Depression/anxiety # History of colorectal cancer status post resection with colostomy Medications at Discharge Home Medications aspirin 81 mg chewable tablet 81 mg PO DAILY heart health 03/20/16 insulin lispro 100 unit/mL subcutaneous pen (Humalog KwikPen (U-100) Insulin) 1 sliding scale dose subcut TIDCM diabetes 09/26/21 duloxetine 60 mg capsule,delayed release 30 mg (1/2 x 60 mg) PO DAILY depression#30 caps 03/12/23 clopidogrel 75 mg tablet 75 mg PO DAILY blood thinner #90 tabs 10/10/23 pantoprazole 40 mg tablet,delayed release 40 mg PO DAILY GERD 12/01/23 calcium carbonate (Tums) 300 mg PO TID PRN dyspepsia 01/31/24 melatonin 3 mg tablet 3 mg PO QHS 01/31/24 simethicone 125 mg chewable tablet 125 mg PO 4X/DAY PRN abdominal distention 01/31/24 sodium chloride 0.65 % nasal spray aerosol (Tennga Saline) 2 spray intranasal Q4H PRN dry nasal passages 01/31/24 tamsulosin 0.4 mg capsule (Flomax) 0.8 mg PO QHS 01/31/24 carvedilol 6.25 mg tablet 6.25 mg PO BID #0 tabs 02/09/24 acetaminophen 325 mg capsule 650 mg PO Q6H PRN pain 05/21/24 atorvastatin 20 mg tablet 20 mg PO QDAY 05/21/24 insulin glargine-yfgn 100 unit/mL (3 mL) subcutaneous pen (Semglee (insulin glargine-yfgn) Pen) 50 unit subcut BID 05/21/24 gabapentin 300 mg capsule 300 mg PO DAILY 08/25/24 metformin 500 mg tablet,extended release 24 hr 500 mg PO BID 08/25/24 furosemide 40 mg tablet 40 mg PO BIDLX 30 days #60 tabs 10/18/24 hydralazine 10 mg tablet 10 mg PO 4X/DAY 30 days #120 tabs 10/18/24 isosorbide mononitrate 30 mg tablet,extended release 24 hr 30 mg PO DAILY 30 days #30 tabs 10/18/24 Hospital Course Procedures Transthoracic echo Summary of Care Provided Minutes Spent on Discharge: 36 Hospital Course: # Acute hypoxic respiratory failure secondary to acute exacerbation of combined CHF # Elevated troponin # MADELEINE-resolved # Chronic suprapubic catheter with abnormal UA and urine culture but only low colony counts, off abx #Type 2 diabetes mellitus #Hx CAD w/ CABG #history of right CEA #history of stroke #history of PAD #ALEJANDRO #GERD #Depression/anxiety # History of colorectal cancer status post resection with colostomy 68-year-old male with history as above presented [facility] ED 10/10/2024 due to confusion and dyspnea. In the ED patient found to be hypoxic at86% on room air with improvement to 92% on 3 L but this subsequently worsened and patient required 7 L of high flow and then was transitioned to Airvo troponin 404, proBNP 2900, MADELEINE with creatinine 1.39 up from 0.7 baseline, lacticacid 4.4 and chest x- ray suspicious for pulmonary edema. Given some nausea and vomiting CT abdomen pelvis with IV contrast obtained with no evidence of acute process, CTA chest with no PE but findings consistent with pulmonary edema/CHF. UA suspicious for UTI, EKG with some ST depressions. Patient started on antibiotics, placed on BiPAP and admitted to ICU, cardiology consulted. Patientwas suspected to have NSTEMI and it was unclear if this was a primary process ortroponin elevation secondary to acute decompensated heart failure. 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 Cardiology at the time recommended to continue heparin, aspirin, Plavix, beta-tian and that patient may require cardiac cathprior to DC home but given there was concern for sepsis secondary to UTI and he was volume overloaded this was initially deferred while patient was on IV Lasix and cultures pending. ID was consulted and ultimately blood cultures no growth and urine culture with low colony counts so antibiotics were discontinued. Patient continued to have worsened kidney function so nephrology consulted, it was felt that this was due to IV diuresis in the setting of CTA resulting in ATN, creatinine stabilized and then improved even with further IV diuresis. Cardiology continue to follow and recommendations changed possible nuclear stress once stabilized but given patient's continued oxygen requirements/acute illness cardiology recommended that patient would be better served being optimized medically and following up outpatient for further workup and it was advised that patient be transition to Imdur and oral Lasix. Ultimately patient was weaned off of Airvo and Lasix were able to be de- escalated to p.o. and Nitropaste was changed to Imdur, patient tolerated this well with continued improvement in respiratory status and no need for O2 even with ambulation, chestpain did not return. On day of discharge no new or acute complaints, patient and are both comfortable with patient discharging home. Discharge instructions as followed: DISCHARGE INSTRUCTIONS PLEASE READ *Please take this with you to your next doctors appointment* - You will have multiple medication changes to optimize your medications for your heart -You will be discharged on 40 mg of Lasix, you will take 40 mg in the morning and 40 mg in the afternoon, he will also be discharged on hydralazine 4 times daily, and isosorbide mononitrate 30 mg daily -Your amlodipine has been stopped to allow room to adjust other medications, youwill not take this on discharge, given your potassium levels being stable duringyour admission your potassium chloride has also been held -Would recommend lab work (BMP) to check your potassium and kidney function in 3-4 days through your primary care physician's office. Please call their officeupon discharge to obtain order for lab work. They may need further adjustments to your medications based on these labs -Would monitor your glucose closely in the event your insulin needs increased ordecreased once you are out of the hospital -Please follow-up with cardiology upon discharge. Please call their office to schedule an appointment for 4 to 6 weeks, you will discuss further management and if necessary further workup on an outpatient basis -Weigh yourself every day. A sudden weight gain can mean you are retaining fluid. Weigh yourself at the same time of day and in the same kind of clothes. Ideally, weigh yourself first thing in the morning after you empty your bladder,but before you eat breakfast. -Please call your physician if your weight goes up by more than 2 pounds in 1 day or 5 pounds in 1 week. This can be a sign that you are retaining more fluid than you should be. Clues to weight gain include checking your ankles for swelling, or noticing you are short of breath when you lie down -Please limit your sodium intake to less than 3 g/day. Here are tips: Limit canned, dried, packaged, and fast foods. Don't add salt to your food at the table. Season foods with herbs instead of salt when you cook. When you eat out, ask that the private chef not add any salt to your dish. Don't eat fried or greasy foods. Be careful of bottled beverages. They can contain a lot of salt -Call 911 right away if you have: -Severe shortness of breath, such that you can't catch your breath even while resting -Severe chest pain that does not resolve with rest or nitroglycerin -Irving, foamy mucus with cough and shortness of breath -An ongoing rapid or irregular heartbeat -Passing out or fainting -Stroke symptoms such as sudden numbness or weakness on one side of your face, arm, or leg or sudden confusion, trouble speaking or vision changes -Please follow-up with urology upon discharge for continued management of your Mackenzie catheter. -Please call your primary care provider's office upon discharge to schedule a hospital follow up within 1 week. -For any concerning signs or symptoms please call 911 or proceed to the nearest emergency department Physical Exam Narrative General: Sitting up in chair, doing well HEENT: Atraumatic, normocephalic Eyes: Anicteric, Neck: Supple Respiratory: No respiratory distress, good air movement overall Cardiovascular: Regular rate GI: Soft, nontender, nondistended Extremities: No significant pitting edema Musculoskeletal: Moving all extremities Neuro: No overt focal neurological deficits Skin: No rashes appreciated Psych: Cooperative Weight / BMI Weight Weight: 68.2 kg Body Mass Index (BMI) 23.5 ABG / Lab / Microbiology Data 10/18/24 06:16 10/18/24 06:16 Laboratory: Laboratory Results - last 24 hr 10/17/24 16:22: POC Glucose 158 H 10/17/24 20:47: POC Glucose 231 H 10/18/24 06:16: WBC 7.6, RBC 3.47 L, Hgb 9.9 L, Hct 30.5 L, MCV 87.9, MCH 28.5, MCHC 32.5, RDW Std Deviation 47.2 H, RDW Coeff of Maia 14.6, Plt Count 293, MPV 9.9, Immature Gran % (Auto) 0.400, Neut % (Auto) 76.1 H, Lymph % (Auto) 10.3 L, Ford % (Auto) 10.9 H, Eos % (Auto) 2.2, Baso % (Auto) 0.1, Absolute Neuts (auto)5.8, Absolute Lymphs (auto) 0.78 L, Nucleated RBC % 0, Sodium 136, Potassium 4.3, Chloride 98, Carbon Dioxide 26.0, Anion Gap 13, BUN 14, Creatinine 0.81, Estim Creat Clear Calc 83.87, Est GFR (MDRD) Non-Af 97, BUN/Creatinine Ratio 17.1, Glucose 153 H, Calcium 9.1 10/18/24 07:59: POC Glucose 134 H 10/18/24 11:10: POC Glucose 193 H Microbiology: Microbiology 10/10/24 01:50 Blood Culture (Wb) - Anticubital Right Blood Culture - Final No growth in 5 days. 10/10/24 01:37 Blood Culture (Wb) - Anticubital Left Blood Culture - Final No growth in 5 days. 10/10/24 03:18 Urine Catheter - Mackenzie Urine Culture - Final Klebsiella pneumoniae sp pneum Presumptive C albicans Escherichia coli 10/10/24 03:05 Mucosa - Nasopharyngeal Respiratory Panel (PCR) - Final 10/10/24 03:18 Urine Catheter - Catheter Streptococcus pneumoniae Antigen (M- Final 10/10/24 03:18 Urine Catheter - Mackenzie Legionella Antigen - Final 10/10/24 01:40 Mucosa - Nose SARS-CoV-2, Influenza & RSV (PCR) - Final D/C Instructions Discharge Diet: - (DASH diet) DC O2, CPAP, BIPAP Needs PSN CPAP & BiPAP: BiPAP & CPAP Settings per PSN Mode BiPAP 10/18/24 02:36 Bipap Delivery Device Face Mask 10/18/24 02:36 BiPAP Inspiratory Pressure 14 10/18/24 02:36 BiPAP Expiratory Pressure 8 10/18/24 02:36 BiPAP Rate 14 10/18/24 02:36 Fraction of Inspired Oxygen ( 30 10/18/24 02:36 FIO2) Total Flow Rate 60 10/11/24 22:39 Home O2 Discharge instructions: No Meaningful Use Info Meaningful Use Meaningful Use Diagnoses (Choose all that apply): CHF CHF ILDA/ARB ordered at discharge?: No Reason ILDA/ARB not ordered?: Worsening renal function Documented LVEF (%): 35 Ischemic Stroke Statin Dosing Therapy Reference: STATIN DOSE THERAPY REFERENCE: * Patients > 75 years receive moderate or high dose statin therapy. * Patients 75 years or YOUNGER should receive HIGH intensity statin dose unless contraindicated. You will be required to document reason for non-treatment if statin daily dose does not meet guidelines. HIGH DOSE STATIN THERAPY DAILY Atorvastatin > than or = to 40 mg Rosuvastatin > than or = to 20 mg Amlodipine + Atorvastatin > than or = to 2.5/40 mg Ezetimibe + Simvastatin 10/80 mg Simvastatin 80mg Discharge Plan Admission Admit Date/Time: 03/06/25 04:04 Primary Reason for Your Visit: Confusion and shortness of breath Attending Provider: Nicole Smith Primary Care Provider: Kendy Modi Consulting Providers: Kendra Yuan; Prateek Smith; Chris Collins; Cy Arnett; Armando Ritchie; Matt Penny Instructions Patient Instructions: ED Heart Failure, Congestive (CHF) Additional Instructions / Restrictions: DISCHARGE INSTRUCTIONS PLEASE READ *Please take this with you to your next doctors appointment* - You will have multiple medication changes to optimize your medications for your heart -You will be discharged on 40 mg of Lasix, you will take 40 mg in the morning and 40 mg in the afternoon, he will also be discharged on hydralazine 4 times daily, and isosorbide mononitrate 30 mg daily -Your amlodipine has been stopped to allow room to adjust other medications, youwill not take this on discharge, given your potassium levels being stable duringyour admission your potassium chloride has also been held -Would recommend lab work (BMP) to check your potassium and kidney function in 3-4 days through your primary care physician's office. Please call their officeupon discharge to obtain order for lab work. They may need further adjustments to your medications based on these labs -Would monitor your glucose closely in the event your insulin needs increased ordecreased once you are out of the hospital -Please follow-up with cardiology upon discharge. Please call their office to schedule an appointment for 4 to 6 weeks, you will discuss further management and if necessary further workup on an outpatient basis -Weigh yourself every day. A sudden weight gain can mean you are retaining fluid. Weigh yourself at the same time of day and in the same kind of clothes. Ideally, weigh yourself first thing in the morning after you empty your bladder,but before you eat breakfast. -Please call your physician if your weight goes up by more than 2 pounds in 1 day or 5 pounds in 1 week. This can be a sign that you are retaining more fluid than you should be. Clues to weight gain include checking your ankles for swelling, or noticing you are short of breath when you lie down -Please limit your sodium intake to less than 3 g/day. Here are tips: Limit canned, dried, packaged, and fast foods. Don't add salt to your food at the table. Season foods with herbs instead of salt when you cook. When you eat out, ask that the private chef not add any salt to your dish. Don't eat fried or greasy foods. Be careful of bottled beverages. They can contain a lot of salt -Call 911 right away if you have: -Severe shortness of breath, such that you can't catch your breath even while resting -Severe chest pain that does not resolve with rest or nitroglycerin -Irving, foamy mucus with cough and shortness of breath -An ongoing rapid or irregular heartbeat -Passing out or fainting -Stroke symptoms such as sudden numbness or weakness on one side of your face, arm, or leg or sudden confusion, trouble speaking or vision changes -Please follow-up with urology upon discharge for continued management of your Mackenzie catheter. -Please call your primary care provider's office upon discharge to schedule a hospital follow up within 1 week. -For any concerning signs or symptoms please call 911 or proceed to the nearest emergency department Discharge Orders/Prescriptions Prescriptions: New furosemide 40 mg Tablet 40 mg PO BIDLX 30 Days Qty: 60 0RF hydralazine 10 mg Tablet 10 mg PO 4X/DAY 30 Days Qty: 120 0RF isosorbide mononitrate 30 mg Tablet Extended Release 24 Hr 30 mg PO DAILY 30 Days Qty: 30 0RF Continued insulin glargine-yfgn [Semglee(insulin glarg-yfgn)Pen] 100 unit/mL (3 mL) insulin pen 50 unit subcut BID atorvastatin 20 mg tablet 20 mg PO QDAY aspirin 81 MG tablet,chewable 81 mg PO DAILY insulin lispro [Humalog KwikPen Insulin] 100 unit/mL insulin pen 1 sliding scale dose SC TIDCM Protocol: 6. Sliding Scale Insulin Custom Condition: mg/dl range Dose/Route: Number of Units Condition: 0-200 Dose/Route: 0 Condition: 201-250 Dose/Route: 2 Condition: 251-300 Dose/Route: 4 Condition: 301-350 Dose/Route: 6 Condition: 351-400 Dose/Route: 8 Condition: 401-450 Dose/Route: 10 Condition: 451-500 Dose/Route: 12 Condition: 500+ Dose/Route: 14 Condition: 501+ Dose/Route: CALL MD Protocol Text: INJECT 4 UNITS SUBCUTANEOUSLY ALONG WITH SLIDING SCALE THREE TIMES A DAY AT 0730, 1130, AND 1630 duloxetine 60 MG capsule,delayed release(DR/EC) 30 mg PO DAILY Qty: 30 1RF melatonin 3 mg tablet 3 mg PO QHS simethicone 125 mg tablet,chewable 125 mg PO 4X/DAY PRN (Reason: abdominal distention) tamsulosin [Flomax] 0.4 mg capsule 0.8 mg PO QHS Tums 300 mg (750 mg) tablet,chewable 300 mg PO TID PRN (Reason: dyspepsia) Tennga Saline 0.65 % aerosol,spray 2 spray intranasal Q4H PRN (Reason: dry nasal passages) Rx Instructions: while awake carvedilol 6.25 mg Tablet 6.25 mg PO BID Qty: 0 0RF metformin 500 mg tablet extended release 24 hr 500 mg PO BID gabapentin 300 mg capsule 300 mg PO DAILY pantoprazole 40 mg tablet,delayed release (DR/EC) 40 mg PO DAILY acetaminophen 325 mg capsule 650 mg PO Q6H PRN (Reason: pain) clopidogrel 75 mg tablet 75 mg PO DAILY Qty: 90 3RF Discontinued amlodipine 10 mg tablet 10 mg PO DAILY potassium chloride [Klor-Con M20] 20 mEq tablet,ER particles/crystals 20 meq PO DAILY sodium chloride 0.9 % Parenteral Solution 100 ea IV .continuous Referrals / Follow Up: Kendy Modi MD [Primary Care Provider] - Within 1 Week Armando Ritchie MD [Med Staff - Active Staff] - (Continue to follow with urology on discharge for management of your catheter) Etienne Darden MD [Med Staff - Active Staff] - See Referral Note (Follow-up in the cardiology office in 4 to 6 weeks) Disposition Disposition (needs filled in before D/C Order can be placed): Home Health Service Charges/Coding Visit Charges Inpatient E&M: 56609 Disch Hosp >30min 10/18/24 1334 <Electronically signed by Nicole Smith MD> Cosigner Signature (if applicable): CC: Dr. Kendy Modi MD; Dr. Nicole Smith MD~ Signed [facility] Work Phone: [phone] Discharge summary Author Nicole Smith [facility] Note Date/Time October 18, 2024 1:3 3pm [facility] Medical Records Department [address] [place] [address] Instructions for Home/Discharge Instructions 10/18/24 1241 MR#: [id number] Acct: [id number] Name: YONY VEGA Rep #:[id number] : 1955 68 From: Nicole Smith MD PCP: Dr. Kendy Modi MD Status:ADM IN Discharge Instructions Diet Discharge Diet: - (DASH diet) DC O2, CPAP, BIPAP needs Home O2 Discharge instructions: No Dressing / Incision Discharge Activity: - (Increase activity as tolerated) Follow Up Care Test Results: Test results from this visit will be discussed in further detail at your follow- up appointment, if applicable. Discharge Plan Admission Admit Date/Time: 10/10/24 04:04 Primary Reason for Your Visit: Confusion and shortness of breath Attending Provider: Nicole Smith Primary Care Provider: Kendy Modi Consulting Providers: Kendra Yuan; Prateek Smith; Chris Collins; Cy Arnett; Armando Ritchie; Matt Penny Instructions Patient Instructions: ED Heart Failure, Congestive (CHF) Additional Instructions / Restrictions: DISCHARGE INSTRUCTIONS PLEASE READ *Please take this with you to your next doctors appointment* - You will have multiple medication changes to optimize your medications for your heart -You will be discharged on 40 mg of Lasix, you will take 40 mg in the morning and 40 mg in the afternoon, he will also be discharged on hydralazine 4 times daily, and isosorbide mononitrate 30 mg daily -Your amlodipine has been stopped to allow room to adjust other medications, youwill not take this on discharge, given your potassium levels being stable duringyour admission your potassium chloride has also been held -Would recommend lab work (BMP) to check your potassium and kidney function in 3-4 days through your primary care physician's office. Please call their officeupon discharge to obtain order for lab work. They may need further adjustments to your medications based on these labs -Would monitor your glucose closely in the event your insulin needs increased ordecreased once you are out of the hospital -Please follow-up with cardiology upon discharge. Please call their office to schedule an appointment for 4 to 6 weeks, you will discuss further management and if necessary further workup on an outpatient basis -Weigh yourself every day. A sudden weight gain can mean you are retaining fluid. Weigh yourself at the same time of day and in the same kind of clothes. Ideally, weigh yourself first thing in the morning after you empty your bladder,but before you eat breakfast. -Please call your physician if your weight goes up by more than 2 pounds in 1 day or 5 pounds in 1 week. This can be a sign that you are retaining more fluid than you should be. Clues to weight gain include checking your ankles for swelling, or noticing you are short of breath when you lie down -Please limit your sodium intake to less than 3 g/day. Here are tips: Limit canned, dried, packaged, and fast foods. Don't add salt to your food at the table. Season foods with herbs instead of salt when you cook. When you eat out, ask that the private chef not add any salt to your dish. Don't eat fried or greasy foods. Be careful of bottled beverages. They can contain a lot of salt -Call 911 right away if you have: -Severe shortness of breath, such that you can't catch your breath even while resting -Severe chest pain that does not resolve with rest or nitroglycerin -Irving, foamy mucus with cough and shortness of breath -An ongoing rapid or irregular heartbeat -Passing out or fainting -Stroke symptoms such as sudden numbness or weakness on one side of your face, arm, or leg or sudden confusion, trouble speaking or vision changes -Please follow-up with urology upon discharge for continued management of your Mackenzie catheter. -Please call your primary care provider's office upon discharge to schedule a hospital follow up within 1 week. -For any concerning signs or symptoms please call 911 or proceed to the nearest emergency department Discharge Orders/Prescriptions Prescriptions: New furosemide 40 mg Tablet 40 mg PO BIDLX 30 Days Qty: 60 0RF hydralazine 10 mg Tablet 10 mg PO 4X/DAY 30 Days Qty: 120 0RF isosorbide mononitrate 30 mg Tablet Extended Release 24 Hr 30 mg PO DAILY 30 Days Qty: 30 0RF Continued insulin glargine-yfgn [Semglee(insulin glarg-yfgn)Pen] 100 unit/mL (3 mL) insulin pen 50 unit subcut BID atorvastatin 20 mg tablet 20 mg PO QDAY aspirin 81 MG tablet,chewable 81 mg PO DAILY insulin lispro [Humalog KwikPen Insulin] 100 unit/mL insulin pen 1 sliding scale dose SC TIDCM Protocol: 6. Sliding Scale Insulin Custom Condition: mg/dl range Dose/Route: Number of Units Condition: 0-200 Dose/Route: 0 Condition: 201-250 Dose/Route: 2 Condition: 251-300 Dose/Route: 4 Condition: 301-350 Dose/Route: 6 Condition: 351-400 Dose/Route: 8 Condition: 401-450 Dose/Route: 10 Condition: 451-500 Dose/Route: 12 Condition: 500+ Dose/Route: 14 Condition: 501+ Dose/Route: CALL MD Protocol Text: INJECT 4 UNITS SUBCUTANEOUSLY ALONG WITH SLIDING SCALE THREE TIMES A DAY AT 0730, 1130, AND 1630 duloxetine 60 MG capsule,delayed release(DR/EC) 30 mg PO DAILY Qty: 30 1RF melatonin 3 mg tablet 3 mg PO QHS simethicone 125 mg tablet,chewable 125 mg PO 4X/DAY PRN (Reason: abdominal distention) tamsulosin [Flomax] 0.4 mg capsule 0.8 mg PO QHS Tums 300 mg (750 mg) tablet,chewable 300 mg PO TID PRN (Reason: dyspepsia) Tennga Saline 0.65 % aerosol,spray 2 spray intranasal Q4H PRN (Reason: dry nasal passages) Rx Instructions: while awake carvedilol 6.25 mg Tablet 6.25 mg PO BID Qty: 0 0RF metformin 500 mg tablet extended release 24 hr 500 mg PO BID gabapentin 300 mg capsule 300 mg PO DAILY pantoprazole 40 mg tablet,delayed release (DR/EC) 40 mg PO DAILY acetaminophen 325 mg capsule 650 mg PO Q6H PRN (Reason: pain) clopidogrel 75 mg tablet 75 mg PO DAILY Qty: 90 3RF Discontinued amlodipine 10 mg tablet 10 mg PO DAILY potassium chloride [Klor-Con M20] 20 mEq tablet,ER particles/crystals 20 meq PO DAILY sodium chloride 0.9 % Parenteral Solution 100 ea IV .continuous Referrals / Follow Up: Kendy Modi MD [Primary Care Provider] - Within 1 Week Armando Ritchie MD [Med Staff - Active Staff] - (Continue to follow with urology on discharge for management of your catheter) Etienne Darden MD [Med Staff - Active Staff] - See Referral Note (Follow-up in the cardiology office in 4 to 6 weeks) Disposition Disposition (needs filled in before D/C Order can be placed): Home Health Service 10/18/24 1333<Electronically signed by Nicole Smith MD>Nicole Smith MD CC: Dr. Kendy Modi MD; Dr. Prateek Smith MD; Dr. Kendra Yuan MD; Dr. Cy Arnett MD; Dr. Armando Ritchie MD; Dr. Matt Penny MD; Dr. Chris Collins MD ~ Signed [facility] Work Phone: [phone] [facility]03-14-2025 Progress note Author Tahira Richards [facility] Note Date/Time October 18, 2024 9:5 0am [facility] Medical Records Department [address] [place] [id number] Progress Note - Nephrology 10/15/24 1132 MR#: [id number] Acct: [id number] Name: YONY VEGA Rep #:[id number] : 1955 68 From: Tahira kuhn [employer] PCP: Dr. Kendy Modi MD Status:ADM IN Location: [place] [address] Subjective Subjective Patient sitting in chair. Denies any complaints. Reports feeling better overall. Objective Data Objective Data Vital Signs: Vital Signs Temp Pulse Resp BP Pulse Ox O2 Del Method O2 Flow Rate 97.9 F 92 18 138/71 H 97 High Flow 5 10/15/24 10:10 10/15/24 10:16 10/15/24 10:10 10/15/24 10:16 10/15/24 10:10 10/15/24 10:10 10/15/24 10:10 FiO2 45 10/15/24 06:50 Oxygen Flow Rate (L/min) 5 Oxygen Delivery Method High Flow Weight: 71.3 kg Body Mass Index (BMI) 24.6 Intake & Output: Intake and Output for Last 24 Hours 10/14/24 10/14/24 10/15/24 00:59 23:59 23:59 Intake Total 630 / 630 470 / 470 50 / 50 Output Total 2275 / 2275 2350 / 2350 125 / 125 Balance -1645 / -1645 -1880 / -1880 -75 / -75 Lab / Micro Data 10/15/24 05:54 10/15/24 05:54 Labs: Laboratory Results - last 24 hr 10/14/24 16:38: POC Glucose 161 H 10/14/24 21:28: POC Glucose 98 10/15/24 02:07: POC Glucose 97 10/15/24 05:54: WBC 5.4, RBC 3.48 L, Hgb 10.1 L, Hct 30.6 L, MCV 87.9, MCH 29.0,MCHC 33.0, RDW Std Deviation 47.1 H, RDW Coeff of Maia 14.7 H, Plt Count 254, MPV10.0, Immature Gran % (Auto) 0.600, Neut % (Auto) 72.8 H, Lymph % (Auto) 8.9 L, Ford % (Auto) 14.5 H, Eos % (Auto) 3.0, Baso % (Auto) 0.2, Absolute Neuts (auto)3.9, Absolute Lymphs (auto) 0.48 L, Nucleated RBC % 0, Sodium 137, Potassium 3.6, Chloride 99, Carbon Dioxide 25.3, Anion Gap 12, BUN 33 H, Creatinine 0.89, Estim Creat Clear Calc 76.33, Est GFR (MDRD) Non-Af 95, BUN/Creatinine Ratio 36.8 H, Glucose 71, Calcium 8.8, Magnesium 1.5 10/15/24 06:04: POC Glucose 77 10/15/24 07:50: POC Glucose 70 L Micro: Microbiology 10/10/24 01:50 Blood Culture (Wb) - Anticubital Right Blood Culture - Final No growth in 5 days. 10/10/24 01:37 Blood Culture (Wb) - Anticubital Left Blood Culture - Final No growth in 5 days. 10/10/24 03:18 Urine Catheter - Mackenzie Urine Culture - Final Klebsiella pneumoniae sp pneum Presumptive C albicans Escherichia coli 10/10/24 03:05 Mucosa - Nasopharyngeal Respiratory Panel (PCR) - Final 10/10/24 03:18 Urine Catheter - Catheter Streptococcus pneumoniae Antigen (M- Final 10/10/24 03:18 Urine Catheter - Mackenzie Legionella Antigen - Final 10/10/24 01:40 Mucosa - Nose SARS-CoV-2, Influenza & RSV (PCR) - Final Rhythm Strip Rhythm Strip: Sinus Rhythm Rate: 76 Ectopy: PAC(s) (Frequent PACs being alarmed his atrial fibs on the rhythm strips.) Physical Exam Narrative Alert awake oriented x 3 no obvious distress s1s2 no murmurs lungs clear abdomen soft no edema Suprapubic Assessment & Plan Assessment/Plan (1) Acute kidney injury: PLAN: - MADELEINE secondary to ATN with normal baseline Creatinine. Baseline creatinine around 0.6-0.7. Creatinine 1.3 on admission, peaked 2.37 on 10/12 and today serum creatinine 0.89. CT abdomen without any hydronephrosis. Urine analysis suggestive of UTI. He did receive a CT PE protocol study. Overall renalfunction better, good urine output. BPs acceptable. 10/15/24 1135 <Electronically signed by Tahira JALLOH> Cosigner Signature (if applicable): 10/18/24 0950 <Electronically signed by Cy Arnett MD> CC: ~ Signed [facility] Work Phone: [phone]) 308-184703-13-2025 Progress note Author Nicole Smith [facility] Note Date/Time October 17, 2024 5:1 3pm [facility] Medical Records Department [address] [place] [address] Progress Note - Hospitalist 10/17/24 1710 MR#: [id number] Acct: [id number] Name: YONY VEGA Rep #:[id number] : 1955 68 From: Nicole Smith MD PCP: Dr. Kendy Modi MD Status:ADM IN Location: [place] [address] Reason for Visit Reason for Visit: Diagnoses Sepsis, unspecified organism (10/10/24) Acidosis, unspecified (10/10/24) Non-ST elevation (NSTEMI) myocardial infarction (10/10/24) Atherosclerotic heart disease of ambler coronary artery without angina pectoris (10/10/24) Unspecified combined systolic (congestive) and diastolic (congestive) heart failure (10/10/24) Acute on chronic combined systolic (congestive) and diastolic (congestive) heartfailure (10/10/24) Acute respiratory failure with hypoxia (10/10/24) Acute kidney failure, unspecified (10/10/24) Urinary tract infection, site not specified (10/10/24) Subjective Subjective Patient continues to improve, breathing improving so he is able to get up and improve his ambulation and activity level Objective Data Objective Data Vital Signs: Vital Signs Temp Pulse Resp BP Pulse Ox O2 Del Method O2 Flow Rate 97.8 F 85 18 130/71 H 94 Room Air 5 10/17/24 16:25 10/17/24 16:27 10/17/24 16:25 10/17/24 16:25 10/17/24 16:25 10/17/24 16:10/17/24 07:37 FiO2 35 10/17/24 00:05 Oxygen Flow Rate (L/min) 5 Oxygen Delivery Method Room Air Weight: 68.2 kg Body Mass Index (BMI) 23.5 Intake & Output: Intake and Output for Last 24 Hours 10/15/24 10/16/24 10/17/24 23:59 23:59 23:59 Intake Total 890 / 890 1070 / 1070 Output Total 2575 / 2575 1385 / 1985 1900 / 1900 Balance -1685 / -1685 -315 / -915 -1900 / -1900 Lab / Micro Data 10/17/24 04:05 10/17/24 04:05 Labs: Laboratory Results - last 24 hr 10/16/24 20:15: POC Glucose 149 H 10/17/24 04:05: WBC 6.7, RBC 3.65 L, Hgb 10.5 L, Hct 32.4 L, MCV 88.8, MCH 28.8,MCHC 32.4, RDW Std Deviation 47.1 H, RDW Coeff of Maia 14.6, Plt Count 309, MPV 10.0, Immature Gran % (Auto) 0.600, Neut % (Auto) 79.4 H, Lymph % (Auto) 8.1 L, Ford % (Auto) 9.6, Eos % (Auto) 2.1, Baso % (Auto) 0.2, Absolute Neuts (auto) 5.3, Absolute Lymphs (auto) 0.54 L, Nucleated RBC % 0, Sodium 137, Potassium 4.1, Chloride 96 L, Carbon Dioxide 27.8, Anion Gap 13, BUN 18, Creatinine 0.85, Estim Creat Clear Calc 79.92, Est GFR (MDRD) Non-Af 96, BUN/Creatinine Ratio 21.6 H, Glucose 174 H, Calcium 8.9 10/17/24 07:53: POC Glucose 137 H 10/17/24 12:05: POC Glucose 191 H 10/17/24 16:22: POC Glucose 158 H Micro: Microbiology 10/10/24 01:50 Blood Culture (Wb) - Anticubital Right Blood Culture - Final No growth in 5 days. 10/10/24 01:37 Blood Culture (Wb) - Anticubital Left Blood Culture - Final No growth in 5 days. 10/10/24 03:18 Urine Catheter - Mackenzie Urine Culture - Final Klebsiella pneumoniae sp pneum Presumptive C albicans Escherichia coli 10/10/24 03:05 Mucosa - Nasopharyngeal Respiratory Panel (PCR) - Final 10/10/24 03:18 Urine Catheter - Catheter Streptococcus pneumoniae Antigen (M- Final 10/10/24 03:18 Urine Catheter - Mackenzie Legionella Antigen - Final 10/10/24 01:40 Mucosa - Nose SARS-CoV-2, Influenza & RSV (PCR) - Final Rhythm Strip Rhythm Strip: Sinus Rhythm Rate: 76 Ectopy: PAC(s) (Frequent PACs being alarmed his atrial fibs on the rhythm strips.) Physical Exam Narrative General: Resting in bed, answers questions appropriately HEENT: Atraumatic, normocephalic Eyes: Anicteric, Neck: Supple Respiratory: No respiratory distress, air movement improved from previous Cardiovascular: Regular rate GI: Soft, nontender, nondistended Extremities: No significant pitting edema Musculoskeletal: Moving all extremities Neuro: No overt focal neurological deficits Skin: No rashes appreciated Psych: Cooperative Assessment & Plan Assessment/Plan (1) Combined systolic and diastolic congestive heart failure: QUALIFIERS: Heart failure chronicity: acute on chronic Qualified Code(s): I50.43 - Acute on chronic combined systolic (congestive) and diastolic (congestive) heart failure PLAN: Plan # Acute hypoxic respiratory failure -Patient was 86% on room air and required Airvo -Patient back on IV Lasix as of 10/13, monitor kidney function respiratory status -10/15: Tolerating IV Lasix well, patient wore BiPAP overnight as he does have sleep apnea and wears NIPPV at home, yesterday was on 5 L most of the day, work on weaning down oxygen and once patient able to safely mobilize with an O2 requirement safe for home we will consider discharge -10/16: Yesterday worked with therapy and maintain 91% on 5 L, patient is closer to discharge, it was recommended the patient go to TCU or SNF, will discuss withpatient. Given respiratory status is improving and patient is down 3.4 L this hospitalization will transition to oral diuresis and if patient tolerates and respiratory status tolerates can likely be discharged in the next couple of dayspending clinical status and if patient decides to go home or to be placed -10/17: Patient weaned to room air, is doing better from respiratory standpoint and is getting stronger, continuing patient's twice daily Lasix, and he has beenstarted on Imdur, discussed with patient and , if patient's respiratory status continues to improve and he is able to improve his activity tomorrow to what would be acceptable for safe discharge home, he and would be amenable to discharge home # Acute exacerbation of combined heart failure -Patient's EF here 35% with basilar segmental wall motion abnormalities and stage III diastolic dysfunction -Cardiology following, continue diuretics -Continue to monitor volume status -2+ MR -10/15: Hemodynamics and kidney function tolerating IV Lasix -10/16: Improving, of note echo findings as above, there is an echo from 2023 that was normal -10/17: Thus far respiratory status and renal function tolerating the 40 of Lasixtwice daily, repeat in the a.m., if respiratory status and kidney status stable and patient able to ambulate well enough for safe discharge home will likely DC tomorrow Chronic medical problems/problems that have already been addressed: # Elevated troponin -Patient's EKG with diffuse ST segment depressions, echo showed EF of 35% with basilar segmental wall motion abnormalities -Continuing patient on aspirin, Plavix, statin, carvedilol added -Given patient's clinical status and MADELEINE the recommendation is for pharmacologicnuclear stress test once stabilized however discussed today with cardiology and given patient's continued oxygen requirements and acute illness as well as UTI and antibiotics, cardiology recommending that patient may benefit from further workup on outpatient basis once he is optimized. -Reevaluate patient in a.m. -10/15: Patient stable from cardiac standpoint at this time and it was recommended that patient follow-up outpatient in a month to allow time for respiratory status to improve and further evaluation management can be discussedat that time, will transition patient's Nitropaste to Imdur 30 on discharge and plan will be to follow-up with cardiology -10/16: We will change patient to Imdur 30 from Nitropaste per cardiology recommendations, continue beta-tian, outpatient follow-up # MADELEINE-resolved -Baseline renal function with creatinine of 0.6-0.7, on admission creatinine 1.39 and jumped further to 2.11, lisinopril held and Lasix drip discontinued andnephrology consulted, felt that this was multifactorial and began to improve again -Patient resumed on IV Lasix given worsening respiratory status with resumption on 10/13 -Repeat creatinine in a.m., monitor volume status -10/15: Kidney function improved significantly with creatinine 0.83 even with diuresis, will continue IV diuresis today, may be able to consider switching to p.o. tomorrow if respiratory status improving, still on high amounts of oxygen is not yet safe for discharge. Nephrology did evaluate and felt that kidney function decline likely due to ATN especially given he had a CTA prior to this episode -10/16: Creatinine remained stable, patient has been IV diuresed, will likely de-escalate to oral diuresis in preparation for discharge # Chronic suprapubic catheter with abnormal UA and urine culture -Patient on Rocephin, patient grew Klebsiella and E. coli in urine although these were low colony counts -ID following, plan will be short course of p.o. antibiotics on discharge -10/15: Patient improving, plan for short course of oral antibiotics on discharge, patient evaluated by infectious disease -10/16: Rocephin stopped, ID to follow as needed #Type 2 diabetes mellitus -Glucose checks and sliding scale insulin -Continue to adjust patient's long-acting and short acting as needed -10/15: Patient's glucose 70 today despite not being n.p.o., will hold scheduled Premeal and decrease long-acting, uptitrate as able/tolerated -10/16: Glucose this a.m. 136 with lunchtime 165, continue present insulin regimen #Hx CAD w/ CABG/history of right CEA/history of stroke/history of PAD -CABG several years ago and heart cath in 2016 which showed all 4 of his grafts were patent -Continue aspirin, Plavix, statin #ALEJNADRO -Continue home NIPPV if applicable #GERD -Continue PPI #Depression/anxiety -Continue home medications #DVT ppx: SCDs Nicole Smith MD Time spent in the patient's overall evaluation,decision-making process, review of diagnostic data, adjustment of management, discussion with other providers, nursing nursing and ancillary staff involved in patient's care documentation, 36Minutes Charges/Coding Visit Charges Inpatient E&M: 01276 Subs Hosp L2 10/17/24 1713 <Electronically signed by Nicole Smith MD> Cosigner Signature (if applicable): CC: ~ Signed [facility] Work Phone: [phone]) 476-822703-12-2025 Progress note Author Nicole Smith [facility] Note Date/Time October 16, 2024 2:4 9pm [facility] Medical Records Department [address] [place] [id number] Progress Note - Hospitalist 10/16/24 0831 MR#: [id number] Acct: [id number] Name: YONY VEGA Rep #:[id number] : 1955 68 From: Nicloe Smith MD PCP: Dr. Kendy Modi MD Status:ADM IN Location: [place] [address] Reason for Visit Reason for Visit: Diagnoses Sepsis, unspecified organism (10/10/24) Acidosis, unspecified (10/10/24) Non-ST elevation (NSTEMI) myocardial infarction (10/10/24) Atherosclerotic heart disease of ambler coronary artery without angina pectoris (10/10/24) Unspecified combined systolic (congestive) and diastolic (congestive) heart failure (10/10/24) Acute on chronic combined systolic (congestive) and diastolic (congestive) heartfailure (10/10/24) Acute respiratory failure with hypoxia (10/10/24) Acute kidney failure, unspecified (10/10/24) Urinary tract infection, site not specified (10/10/24) Subjective Subjective Patient slowly improving, still short of breath still somewhat weak but sats improving and overall patient continues to slowly improve Objective Data Objective Data Vital Signs: Vital Signs Temp Pulse Resp BP Pulse Ox O2 Del Method O2 Flow Rate 97.0 F L 76 14 138/76 H 98 Bi-pap 5 10/16/24 05:33 10/16/24 05:33 10/16/24 05:33 10/16/24 05:33 10/16/24 05:33 10/16/24 05:37 10/15/24 19:13 FiO2 35 10/16/24 05:05 Oxygen Flow Rate (L/min) 5 Oxygen Delivery Method Bi-pap Weight: 69.7 kg Body Mass Index (BMI) 24.0 Intake & Output: Intake and Output for Last 24 Hours 10/14/24 10/15/24 10/16/24 23:59 23:59 23:59 Intake Total 470 / 470 890 / 890 Output Total 2350 / 2350 2575 / 2575 75 / 75 Balance -1880 / -1880 -1685 / -1685 -75 / -75 Lab / Micro Data 10/16/24 05:00 10/16/24 05:00 Labs: Laboratory Results - last 24 hr 10/15/24 11:28: POC Glucose 179 H 10/15/24 16:31: POC Glucose 273 H 10/15/24 23:19: POC Glucose 196 H 10/16/24 05:00: WBC 6.1, RBC 3.49 L, Hgb 10.1 L, Hct 30.5 L, MCV 87.4, MCH 28.9,MCHC 33.1, RDW Std Deviation 47.4 H, RDW Coeff of Maia 14.8 H, Plt Count 266, MPV10.0, Immature Gran % (Auto) 0.500, Neut % (Auto) 69.7, Lymph % (Auto) 12.9 L, Ford % (Auto) 13.8 H, Eos % (Auto) 2.8, Baso % (Auto) 0.3, Absolute Neuts (auto) 4.2, Absolute Lymphs (auto) 0.78 L, Nucleated RBC % 0, Sodium 138, Potassium 4.0, Chloride 97 L, Carbon Dioxide 29.3, Anion Gap 11, BUN 24 H, Creatinine 0.91, Estim Creat Clear Calc 74.66, Est GFR (MDRD) Non-Af 93, BUN/Creatinine Ratio 26.4 H, Glucose 151 H, Calcium 8.5 Micro: Microbiology 10/10/24 01:50 Blood Culture (Wb) - Anticubital Right Blood Culture - Final No growth in 5 days. 10/10/24 01:37 Blood Culture (Wb) - Anticubital Left Blood Culture - Final No growth in 5 days. 10/10/24 03:18 Urine Catheter - Mackenzie Urine Culture - Final Klebsiella pneumoniae sp pneum Presumptive C albicans Escherichia coli 10/10/24 03:05 Mucosa - Nasopharyngeal Respiratory Panel (PCR) - Final 10/10/24 03:18 Urine Catheter - Catheter Streptococcus pneumoniae Antigen (M- Final 10/10/24 03:18 Urine Catheter - Mackenzie Legionella Antigen - Final 10/10/24 01:40 Mucosa - Nose SARS-CoV-2, Influenza & RSV (PCR) - Final Rhythm Strip Rhythm Strip: Sinus Rhythm Rate: 76 Ectopy: PAC(s) (Frequent PACs being alarmed his atrial fibs on the rhythm strips.) Physical Exam Narrative General: Resting comfortably but wakes up and answers questions appropriately, no apparent distress HEENT: Atraumatic, normocephalic Eyes: Anicteric, Neck: Supple Respiratory: No respiratory distress, fair air movement Cardiovascular: Regular rate GI: Soft, nontender, nondistended Extremities: No significant pitting edema Musculoskeletal: Moving all extremities Neuro: No overt focal neurological deficits Skin: No rashes appreciated Psych: Cooperative Assessment & Plan Assessment/Plan (1) Combined systolic and diastolic congestive heart failure: QUALIFIERS: Heart failure chronicity: acute on chronic Qualified Code(s): I50.43 - Acute on chronic combined systolic (congestive) and diastolic (congestive) heart failure PLAN: Plan # Elevated troponin -Patient's EKG with diffuse ST segment depressions, echo showed EF of 35% with basilar segmental wall motion abnormalities -Continuing patient on aspirin, Plavix, statin, carvedilol added -Given patient's clinical status and MADELEINE the recommendation is for pharmacologicnuclear stress test once stabilized however discussed today with cardiology and given patient's continued oxygen requirements and acute illness as well as UTI and antibiotics, cardiology recommending that patient may benefit from further workup on outpatient basis once he is optimized. -Reevaluate patient in a.m. -10/15: Patient stable from cardiac standpoint at this time and it was recommended that patient follow-up outpatient in a month to allow time for respiratory status to improve and further evaluation management can be discussedat that time, will transition patient's Nitropaste to Imdur 30 on discharge and plan will be to follow-up with cardiology -10/16: We will change patient to Imdur 30 from Nitropaste per cardiology recommendations, continue beta-tian, outpatient follow-up # MADELEINE-resolved -Baseline renal function with creatinine of 0.6-0.7, on admission creatinine 1.39 and jumped further to 2.11, lisinopril held and Lasix drip discontinued andnephrology consulted, felt that this was multifactorial and began to improve again -Patient resumed on IV Lasix given worsening respiratory status with resumption on 10/13 -Repeat creatinine in a.m., monitor volume status -10/15: Kidney function improved significantly with creatinine 0.83 even with diuresis, will continue IV diuresis today, may be able to consider switching to p.o. tomorrow if respiratory status improving, still on high amounts of oxygen is not yet safe for discharge. Nephrology did evaluate and felt that kidney function decline likely due to ATN especially given he had a CTA prior to this episode -10/16: Creatinine remained stable, patient has been IV diuresed, will likely de-escalate to oral diuresis in preparation for discharge # Chronic suprapubic catheter with abnormal UA and urine culture -Patient on Rocephin, patient grew Klebsiella and E. coli in urine although these were low colony counts -ID following, plan will be short course of p.o. antibiotics on discharge -10/15: Patient improving, plan for short course of oral antibiotics on discharge, patient evaluated by infectious disease -10/16: Rocephin stopped, ID to follow as needed # Acute hypoxic respiratory failure -Patient was 86% on room air and required Airvo -Patient back on IV Lasix as of 10/13, monitor kidney function respiratory status -10/15: Tolerating IV Lasix well, patient wore BiPAP overnight as he does have sleep apnea and wears NIPPV at home, yesterday was on 5 L most of the day, work on weaning down oxygen and once patient able to safely mobilize with an O2 requirement safe for home we will consider discharge -10/16: Yesterday worked with therapy and maintain 91% on 5 L, patient is closer to discharge, it was recommended the patient go to TCU or SNF, will discuss withpatient. Given respiratory status is improving and patient is down 3.4 L this hospitalization will transition to oral diuresis and if patient tolerates and respiratory status tolerates can likely be discharged in the next couple of dayspending clinical status and if patient decides to go home or to be placed # Acute exacerbation of combined heart failure -Patient's EF here 35% with basilar segmental wall motion abnormalities and stage III diastolic dysfunction -Cardiology following, continue diuretics -Continue to monitor volume status -2+ MR -10/15: Hemodynamics and kidney function tolerating IV Lasix -10/16: Improving, of note echo findings as above, there is an echo from 2023 that was normal #Type 2 diabetes mellitus -Glucose checks and sliding scale insulin -Continue to adjust patient's long-acting and short acting as needed -10/15: Patient's glucose 70 today despite not being n.p.o., will hold scheduled Premeal and decrease long-acting, uptitrate as able/tolerated -10/16: Glucose this a.m. 136 with lunchtime 165, continue present insulin regimen Chronic medical problems: #Hx CAD w/ CABG/history of right CEA/history of stroke/history of PAD -CABG several years ago and heart cath in 2015 which showed all 4 of his grafts were patent -Continue aspirin, Plavix, statin #ALEJANDRO -Continue home NIPPV if applicable #GERD -Continue PPI #Depression/anxiety -Continue home medications #DVT ppx: SCDs Nicole Smith MD Charges/Coding Visit Charges Inpatient E&M: 26561 Subs Hosp L2 10/16/24 1449 <Electronically signed by Nicole Smith MD> Cosigner Signature (if applicable): CC: ~ Signed [facility] Work Phone: [phone]) 742-554503-11-2025 Progress note Author Chris Collins [facility] Note Date/Time October 15, 2024 10: 52am [facility] Medical Records Department [address] [place] [address] Progress Note - Infect Disease 10/15/24 1050 MR#: [id number] Acct: [id number] Name: YONY VEGA Rep #:[id number] : 1955 68 From: Chris kumar MD PCP: Dr. Kendy Modi MD Status:ADM IN Location: [place] [address] Physical Exam Narrative Feeling better, no fever, no n/v/d. Const alert and no apparent distress General Appearance: cooperative Resp normal air movement and clear to auscultation bilaterally Cardio regular rate and regular rhythm GI soft to palpation, non-tender and non-distended Extremity General Extremity: Negative for edema Skin no rashes or lesions noted ID ID: Route of nutrition/ use of supplements: [] Nutritional Intake: [] IV Site: [] Mackenzie Catheter: [] Assessment & Plan Assessment/Plan (1) Combined systolic and diastolic congestive heart failure: QUALIFIERS: Heart failure chronicity: acute on chronic Qualified Code(s): I50.43 - Acute on chronic combined systolic (congestive) and diastolic (congestive) heart failure (2) Acute kidney injury: (3) UTI (urinary tract infection): PLAN: Ucx with small amount klebs, cameron, ecoli. Recent ucx with klebs.MADELEINE improved. Day 6 of abx, will stop ceftriaxone now. Will follow prn 10/15/24 1052 <Electronically signed by Chris Collins MD> Cosigner Signature (if applicable): CC: ~ Signed [facility] Work Phone: [phone]) [phone] Progress note Author Nicole Smith [facility] Note Date/Time October 15, 2024 10: 42am [facility] Medical Records Department [address] [place] [id number] Progress Note - Hospitalist 10/15/24 0902 MR#: [id number] Acct: [id number] Name: YONY VEGA Rep #:[id number] : 1955 68 From: Nicole Smith MD PCP: Dr. Kendy Modi MD Status:ADM IN Location: [place] [address] Reason for Visit Reason for Visit: Diagnoses Sepsis, unspecified organism (10/10/24) Acidosis, unspecified (10/10/24) Non-ST elevation (NSTEMI) myocardial infarction (10/10/24) Atherosclerotic heart disease of ambler coronary artery without angina pectoris (10/10/24) Unspecified combined systolic (congestive) and diastolic (congestive) heart failure (10/10/24) Acute on chronic combined systolic (congestive) and diastolic (congestive) heartfailure (10/10/24) Acute respiratory failure with hypoxia (10/10/24) Acute kidney failure, unspecified (10/10/24) Urinary tract infection, site not specified (10/10/24) Subjective Subjective Patient sitting up in chair, reports he is more comfortable sitting up with his breathing and laying down did not wear the NIPPV last night, still short of breath but slightly better than it was, no chest pain or other acute complaints,no swelling in feet Objective Data Objective Data Vital Signs: Vital Signs Temp Pulse Resp BP Pulse Ox O2 Del Method O2 Flow Rate 96.5 F L 73 16 128/69 H 96 Bi-pap 5 10/15/24 06:49 10/15/24 06:50 10/15/24 06:50 10/15/24 06:49 10/15/24 06:50 10/15/24 08:08 10/14/24 21:30 FiO2 45 10/15/24 06:50 Oxygen Flow Rate (L/min) 5 Oxygen Delivery Method Bi-pap Weight: 71.3 kg Body Mass Index (BMI) 24.6 Intake & Output: Intake and Output for Last 24 Hours 10/14/24 10/14/24 10/15/24 00:59 23:59 23:59 Intake Total 630 / 630 470 / 470 Output Total 2275 / 2275 2350 / 2350 125 / 125 Balance -1645 / -1645 -1880 / -1880 -125 / -125 Lab / Micro Data 10/15/24 05:54 10/15/24 05:54 Labs: Laboratory Results - last 24 hr 10/14/24 10:57: POC Glucose 70 L 10/14/24 16:38: POC Glucose 161 H 10/14/24 21:28: POC Glucose 98 10/15/24 02:07: POC Glucose 97 10/15/24 05:54: WBC 5.4, RBC 3.48 L, Hgb 10.1 L, Hct 30.6 L, MCV 87.9, MCH 29.0,MCHC 33.0, RDW Std Deviation 47.1 H, RDW Coeff of Maia 14.7 H, Plt Count 254, MPV10.0, Immature Gran % (Auto) 0.600, Neut % (Auto) 72.8 H, Lymph % (Auto) 8.9 L, Ford % (Auto) 14.5 H, Eos % (Auto) 3.0, Baso % (Auto) 0.2, Absolute Neuts (auto)3.9, Absolute Lymphs (auto) 0.48 L, Nucleated RBC % 0, Sodium 137, Potassium 3.6, Chloride 99, Carbon Dioxide 25.3, Anion Gap 12, BUN 33 H, Creatinine 0.89, Estim Creat Clear Calc 76.33, Est GFR (MDRD) Non-Af 95, BUN/Creatinine Ratio 36.8 H, Glucose 71, Calcium 8.8, Magnesium 1.5 10/15/24 06:04: POC Glucose 77 10/15/24 07:50: POC Glucose 70 L Micro: Microbiology 10/10/24 01:50 Blood Culture (Wb) - Anticubital Right Blood Culture - Final No growth in 5 days. 10/10/24 01:37 Blood Culture (Wb) - Anticubital Left Blood Culture - Final No growth in 5 days. 10/10/24 03:18 Urine Catheter - Mackenzie Urine Culture - Final Klebsiella pneumoniae sp pneum Presumptive C albicans Escherichia coli 10/10/24 03:05 Mucosa - Nasopharyngeal Respiratory Panel (PCR) - Final 10/10/24 03:18 Urine Catheter - Catheter Streptococcus pneumoniae Antigen (M- Final 10/10/24 03:18 Urine Catheter - Mackenzie Legionella Antigen - Final 10/10/24 01:40 Mucosa - Nose SARS-CoV-2, Influenza & RSV (PCR) - Final Rhythm Strip Rhythm Strip: Sinus Rhythm Rate: 76 Ectopy: PAC(s) (Frequent PACs being alarmed his atrial fibs on the rhythm strips.) Physical Exam Narrative General: Alert, no apparent distress HEENT: Atraumatic, normocephalic Eyes: Anicteric, Neck: Supple Respiratory: Some crackles at bases, no significant respiratory distress Cardiovascular: Regular rate GI: Soft, nontender, nondistended Extremities: No significant pitting edema Musculoskeletal: Moving all extremities Neuro: No overt focal neurological deficits Skin: No rashes appreciated Psych: Cooperative Assessment & Plan Assessment/Plan (1) Combined systolic and diastolic congestive heart failure: QUALIFIERS: Heart failure chronicity: acute on chronic Qualified Code(s): I50.43 - Acute on chronic combined systolic (congestive) and diastolic (congestive) heart failure PLAN: Plan # Elevated troponin -Patient's EKG with diffuse ST segment depressions, echo showed EF of 35% with basilar segmental wall motion abnormalities -Continuing patient on aspirin, Plavix, statin, carvedilol added -Given patient's clinical status and MADELEINE the recommendation is for pharmacologicnuclear stress test once stabilized however discussed today with cardiology and given patient's continued oxygen requirements and acute illness as well as UTI and antibiotics, cardiology recommending that patient may benefit from further workup on outpatient basis once he is optimized. -Reevaluate patient in a.m. -10/15: Patient stable from cardiac standpoint at this time and it was recommended that patient follow-up outpatient in a month to allow time for respiratory status to improve and further evaluation management can be discussedat that time, will transition patient's Nitropaste to Imdur 30 on discharge and plan will be to follow-up with cardiology # MADELEINE-resolved -Baseline renal function with creatinine of 0.6-0.7, on admission creatinine 1.39 and jumped further to 2.11, lisinopril held and Lasix drip discontinued andnephrology consulted, felt that this was multifactorial and began to improve again -Patient resumed on IV Lasix given worsening respiratory status with resumption on 10/13 -Repeat creatinine in a.m., monitor volume status -10/15: Kidney function improved significantly with creatinine 0.83 even with diuresis, will continue IV diuresis today, may be able to consider switching to p.o. tomorrow if respiratory status improving, still on high amounts of oxygen is not yet safe for discharge. Nephrology did evaluate and felt that kidney function decline likely due to ATN especially given he had a CTA prior to this episode # Chronic suprapubic catheter with abnormal UA and urine culture -Patient on Rocephin, patient grew Klebsiella and E. coli in urine although these were low colony counts -ID following, plan will be short course of p.o. antibiotics on discharge -10/15: Patient improving, plan for short course of oral antibiotics on discharge, patient evaluated by infectious disease # Acute hypoxic respiratory failure -Patient was 86% on room air and required Airvo -Patient back on IV Lasix as of 10/13, monitor kidney function respiratory status -10/15: Tolerating IV Lasix well, patient wore BiPAP overnight as he does have sleep apnea and wears NIPPV at home, yesterday was on 5 L most of the day, work on weaning down oxygen and once patient able to safely mobilize with an O2 requirement safe for home we will consider discharge # Acute exacerbation of combined heart failure -Patient's EF here 35% with basilar segmental wall motion abnormalities and stage III diastolic dysfunction -Cardiology following, continue diuretics -Continue to monitor volume status -2+ MR -10/15: Hemodynamics and kidney function tolerating IV Lasix #Type 2 diabetes mellitus -Glucose checks and sliding scale insulin -Continue to adjust patient's long-acting and short acting as needed -10/15: Patient's glucose 70 today despite not being n.p.o., will hold scheduled Premeal and decrease long-acting, uptitrate as able/tolerated Chronic medical problems: #Hx CAD w/ CABG/history of right CEA/history of stroke/history of PAD -CABG several years ago and heart cath in 2015 which showed all 4 of his grafts were patent -Continue aspirin, Plavix, statin #ALEJANDRO -Continue home NIPPV if applicable #GERD -Continue PPI #Depression/anxiety -Continue home medications #DVT ppx: SCDs Nicole Smith MD Charges/Coding Visit Charges Inpatient E&M: 19595 Subs Hosp L2 10/15/24 1042 <Electronically signed by Nicole Smith MD> Cosigner Signature (if applicable): CC: ~ Signed [facility] Work Phone: [phone]) 852-781703-11-2025 Progress note Author Etienne Darden [facility] Note Date/Time October 15, 2024 8:1 8am [facility] Medical Records Department [address] [place] [address] Progress Note - Cardiology 10/15/24 0805 MR#: [id number] Acct: [id number] Name: YONY VEGA Rep #:[id number] : 1955 68 From: Etienne Darden MD PCP: Dr. Kendy Modi MD Status:ADM IN Location: [place] [address] 1 Subjective Subjective Patient resting comfortably in the bed on his BiPAP. He wears it for sleep. Patient's telemetry has been alarming atrial fibs and irregular rhythm but I reviewed multiple rhythm strips and this is sinus rhythm with frequent PACs. Objective Data Vital Signs: Vital Signs Temp Pulse Resp BP Pulse Ox O2 Del Method O2 Flow Rate 96.5 F L 73 16 128/69 H 96 Bi-pap 5 10/15/24 06:49 10/15/24 06:50 10/15/24 06:50 10/15/24 06:49 10/15/24 06:50 10/15/24 06:53 10/14/24 21:30 FiO2 45 10/15/24 06:50 Oxygen Flow Rate (L/min) 5 Oxygen Delivery Method Bi-pap Weight: 157 lb 3.033 oz Body Mass Index (BMI) 24.6 Intake & Output: Intake and Output for Last 24 Hours 10/14/24 10/14/24 10/15/24 00:59 23:59 23:59 Intake Total 630 / 630 470 / 470 Output Total 2275 / 2275 2350 / 2350 125 / 125 Balance -1645 / -1645 -1880 / -1880 -125 / -125 Lab / Micro Data 10/15/24 05:54 10/15/24 05:54 Labs: Laboratory Results - last 24 hr 10/14/24 10:57: POC Glucose 70 L 10/14/24 16:38: POC Glucose 161 H 10/14/24 21:28: POC Glucose 98 10/15/24 02:07: POC Glucose 97 10/15/24 05:54: WBC 5.4, RBC 3.48 L, Hgb 10.1 L, Hct 30.6 L, MCV 87.9, MCH 29.0,MCHC 33.0, RDW Std Deviation 47.1 H, RDW Coeff of Maia 14.7 H, Plt Count 254, MPV10.0, Immature Gran % (Auto) 0.600, Neut % (Auto) 72.8 H, Lymph % (Auto) 8.9 L, Ford % (Auto) 14.5 H, Eos % (Auto) 3.0, Baso % (Auto) 0.2, Absolute Neuts (auto)3.9, Absolute Lymphs (auto) 0.48 L, Nucleated RBC % 0, Sodium 137, Potassium 3.6, Chloride 99, Carbon Dioxide 25.3, Anion Gap 12, BUN 33 H, Creatinine 0.89, Estim Creat Clear Calc 76.33, Est GFR (MDRD) Non-Af 95, BUN/Creatinine Ratio 36.8 H, Glucose 71, Calcium 8.8, Magnesium 1.5 10/15/24 06:04: POC Glucose 77 Micro: Microbiology 10/10/24 01:50 Blood Culture (Wb) - Anticubital Right Blood Culture - Final No growth in 5 days. 10/10/24 01:37 Blood Culture (Wb) - Anticubital Left Blood Culture - Final No growth in 5 days. Rhythm Strip Rhythm Strip: Sinus Rhythm Rate: 76 Ectopy: PAC(s) (Frequent PACs being alarmed his atrial fibs on the rhythm strips.) Cardiology Labs/Tests 10/15/24 05:54: WBC 5.4, RBC 3.48 L, Hgb 10.1 L, Hct 30.6 L, MCV 87.9, MCH 29.0,MCHC 33.0, Plt Count 254, MPV 10.0, Immature Gran % (Auto) 0.600, Neut % (Auto) 72.8 H, Lymph % (Auto) 8.9 L, Ford % (Auto) 14.5 H, Eos % (Auto) 3.0, Baso % (Auto) 0.2, Absolute Neuts (auto) 3.9, Nucleated RBC % 0, Sodium 137, Potassium 3.6, Chloride 99, Carbon Dioxide 25.3, Anion Gap 12, BUN 33 H, Creatinine 0.89, Est GFR (MDRD) Non-Af 95, BUN/Creatinine Ratio 36.8 H, Glucose 71, Calcium 8.8, Magnesium 1.5 Rhythm: EKG: ECHO: Stress Test: Cardiac Cath: PCI: CT Surgery: Holter monitor: EPS: PPM: CXR: Chest CT Scan: Physical Exam Narrative Elderly white male resting on his side with his BiPAP in place. Const alert HEENT normocephalic Eyes PERRL Chest inspection of chest normal Resp normal respiratory effort Resp Narrative: Respirations were clear anteriorly. Cardio Rate: regular rate Rhythm: abnormal rhythm ectopic beats (Frequent PACs documented on the rhythm strips.) Heart Sounds: S1 normal and S2 normal; Negative for click, gallop or murmur GI soft to palpation Extremity no pedal edema Neuro Neuro Narrative: Sleeping but easily arousable and alert. Assessment & Plan Assessment/Plan (1) Combined systolic and diastolic congestive heart failure: QUALIFIERS: Heart failure chronicity: acute on chronic Qualified Code(s): I50.43 - Acute on chronic combined systolic (congestive) and diastolic (congestive) heart failure PLAN: Patient is tolerating guideline directed medical therapy with his Coreg 6.25 mg twice daily, combination of hydralazine 10 mg every 6 hours and nitroglycerin 1 inch paste every 6. This will need to be switched to Imdur 30 mg daily when discharged. He is also on IV Lasix which will need to be transition to p.o. prior to discharge. (2) Non-ST elevated myocardial infarction (non-STEMI): PLAN: The patient continues a slow improvement from his respiratory status. He denies any anginal type symptoms. His troponins were elevated in the 300?400 range. His LVEF is known to be in the 35% range with circumferential basilar hypokinesis. He is status post multivessel coronary bypass graft surgery remotely. Given his current overall general medical situation with his acute renal insufficiency, his respiratory insufficiency, and his general debilitated state I do not feel that further invasive evaluation for cardiac issues would be indicated at this time. For that reason I do not feel that pursuing a pharmacologic stress test is indicated until he is recovered from his respiratory issues. I would recommend that we defer any evaluation from cardiacstandpoint for at least a month after he is completely recovered from his respiratory decompensation and acute renal injury. He will be reevaluated in the office once he is recovered and then decision will be made about further testing as indicated at that time pending his clinical situation. From a cardiovascular standpoint we will sign off if further assistance is needed during the hospitalization please call otherwise he should follow-up in the office in 4 to 6 weeks once he is completely recovered. (3) Acute kidney injury: PLAN: Patient's creatinine appears to have recovered. I would recommend that hestay on a combination of nitrates and hydralazine for the next 4 to 6 weeks. Ifhis renal function remains stable we will probably consider switching him to ARBtherapy in the ambulatory setting. PLAN: Plan 1. Would not pursue further cardiac testing at this time. 2. Will follow-up in the office in 4 to 6 weeks after he is completely recovered. 3. Can consider switching from hydralazine and nitrates to ARB therapy. If notdone during this hospitalization we can do it in the 4 to 6-week range once he is reevaluated. Charges/Coding Visit Charges Inpatient E&M: 19926 Subs Hosp L2 10/15/24 0818 <Electronically signed by Etienne Darden MD> Cosigner Signature (if applicable): CC: ~ Signed [facility] Work Phone: [phone] Progress note Author Cy Arnett [facility] Note Date/Time October 14, 2024 7:1 3pm [facility] Medical Records Department [address] [place] [address] Progress Note - Nephrology 10/14/241912 MR#: [id number] Acct: [id number] Name: YONY VEGA Rep #:[id number] : 1955 68 From: Cy ravi MD PCP: Dr. Kendy Modi MD Status:ADM IN Location: [place] [address] Subjective Subjective no new events Objective Data Objective Data Vital Signs: Vital Signs Temp Pulse Resp BP Pulse Ox O2 Del Method O2 Flow Rate 97.6 F L 91 18 157/85 H 96 Nasal Cannula 5 10/14/24 15:30 10/14/24 17:24 10/14/24 15:30 10/14/24 15:30 10/14/24 15:30 10/14/24 15:30 10/14/24 15:30 FiO2 45 10/13/24 04:00 Oxygen Flow Rate (L/min) 5 Oxygen Delivery Method Nasal Cannula Weight: 67.6 kg Body Mass Index (BMI) 23.3 Intake & Output: Intake and Output for Last 24 Hours 10/12/24 10/14/24 10/14/24 23:59 00:59 23:59 Intake Total 2830 / 2830 630 / 630 470 / 470 Output Total 1275 / 1525 2275 / 2275 2350 / 2350 Balance 1555 / 1305 -1645 / -1645 -1880 / -1880 Lab / Micro Data 10/14/24 04:49 10/14/24 04:49 Labs: Laboratory Results - last 24 hr 10/13/24 21:05: POC Glucose 234 H 10/14/24 04:49: WBC 6.3, RBC 3.29 L, Hgb 9.4 L, Hct 28.8 L, MCV 87.5, MCH 28.6, MCHC 32.6, RDW Std Deviation 46.5 H, RDW Coeff of Maia 14.5, Plt Count 222, MPV 10.2, Immature Gran % (Auto) 0.500, Neut % (Auto) 76.2 H, Lymph % (Auto) 8.2 L, Ford % (Auto) 12.5 H, Eos % (Auto) 2.4, Baso % (Auto) 0.2, Absolute Neuts (auto)4.8, Absolute Lymphs (auto) 0.52 L, Nucleated RBC % 0, Sodium 137, Potassium 4.2, Chloride 101, Carbon Dioxide 20.7 L, Anion Gap 16 H, BUN 55 H, Creatinine 1.42 H, Estim Creat Clear Calc 47.84 L, Est GFR (MDRD) Non-Af 54 L, BUN/Creatinine Ratio 38.9 H, Glucose 81, Calcium 8.6 10/14/24 10:57: POC Glucose 70 L 10/14/24 16:38: POC Glucose 161 H Micro: Microbiology 10/10/24 03:18 Urine Catheter - Mackenzie Urine Culture - Final Klebsiella pneumoniae sp pneum Presumptive C albicans Escherichia coli 10/10/24 01:50 Blood Culture (Wb) - Anticubital Right Blood Culture - Preliminary No growth in 48 hours. 10/10/24 01:37 Blood Culture (Wb) - Anticubital Left Blood Culture - Preliminary No growth in 48 hours. 10/10/24 03:05 Mucosa - Nasopharyngeal Respiratory Panel (PCR) - Final 10/10/24 03:18 Urine Catheter - Catheter Streptococcus pneumoniae Antigen (M- Final 10/10/24 03:18 Urine Catheter - Mackenzie Legionella Antigen - Final 10/10/24 01:40 Mucosa - Nose SARS-CoV-2, Influenza & RSV (PCR) - Final Rhythm Strip Rhythm Strip: Sinus Rhythm Rate: 79 Physical Exam Narrative Alert awake oriented x 3 no obvious distress no pallor no icterus no JVD s1s2 no murmurs lungs clear abdomen soft no organomegaly no edema no cyanosis Suprapubic Assessment & Plan Assessment/Plan (1) Acute kidney injury: PLAN: Baseline creatinine around 0.6-0.7. CT abdomen without any hydronephrosis. Urine analysis suggestive of UTI. He did receive a CT PE protocol study Likely ATN cr better 10/14/241912 <Electronically signed by Cy Arnett MD> Cosigner Signature (if applicable): CC: ~ Signed [facility] Work Phone: [phone] Progress note Author Nicole Smith [facility] Note Date/Time October 14, 2024 5:4 9pm [facility] Medical Records Department [address] [place] [address] Progress Note - Hospitalist 10/14/24 0936 MR#: [id number] Acct: [id number] Name: YONY VEGA Rep #:[id number] : 1955 68 From: Nicole Smith MD PCP: Dr. Kendy Modi MD Status:ADM IN Location: [place] [address] Reason for Visit Reason for Visit: Diagnoses Sepsis, unspecified organism (10/10/24) Acidosis, unspecified (10/10/24) Non-ST elevation (NSTEMI) myocardial infarction (10/10/24) Atherosclerotic heart disease of ambler coronary artery without angina pectoris (10/10/24) Unspecified combined systolic (congestive) and diastolic (congestive) heart failure (10/10/24) Acute on chronic combined systolic (congestive) and diastolic (congestive) heartfailure (10/10/24) Acute respiratory failure with hypoxia (10/10/24) Acute kidney failure, unspecified (10/10/24) Urinary tract infection, site not specified (10/10/24) Subjective Subjective Patient sitting up in chair, reports he felt more short of breath earlier when he was lying semirecumbent but is feeling better sitting up in chair, not presently complaining of chest pain Objective Data Objective Data Vital Signs: Vital Signs Temp Pulse Resp BP Pulse Ox O2 Del Method O2 Flow Rate 97.9 F 78 16 111/72 93 Nasal Cannula 5 10/14/24 03:15 10/14/24 03:15 10/14/24 03:15 10/14/24 03:15 10/14/24 03:15 10/14/24 03:15 10/14/24 03:15 FiO2 45 10/13/24 04:00 Oxygen Flow Rate (L/min) 5 Oxygen Delivery Method Nasal Cannula Weight: 67.6 kg Body Mass Index (BMI) 23.3 Intake & Output: Intake and Output for Last 24 Hours 10/12/24 10/14/24 10/14/24 23:59 00:59 23:59 Intake Total 2830 / 2830 630 / 630 Output Total 1275 / 1525 2275 / 2275 300 / 300 Balance 1555 / 1305 -1645 / -1645 -300 / -300 Lab / Micro Data 10/14/24 04:49 10/14/24 04:49 Labs: Laboratory Results - last 24 hr 10/13/24 08:31: POC Glucose 156 H 10/13/24 08:45: Sodium 134, Potassium 4.6, Chloride 97 L, Carbon Dioxide 22.2, Anion Gap 15, BUN 60 H, Creatinine 2.08 H, Estim Creat Clear Calc 32.66 L, Est GFR (MDRD) Non-Af 34 L, BUN/Creatinine Ratio 29.0 H, Glucose 169 H, Calcium 9.0,NT pro BNP II 8718 H 10/13/24 11:39: POC Glucose 146 H 10/13/24 16:38: POC Glucose 212 H 10/13/24 21:05: POC Glucose 234 H 10/14/24 04:49: WBC 6.3, RBC 3.29 L, Hgb 9.4 L, Hct 28.8 L, MCV 87.5, MCH 28.6, MCHC 32.6, RDW Std Deviation 46.5 H, RDW Coeff of Maia 14.5, Plt Count 222, MPV 10.2, Immature Gran % (Auto) 0.500, Neut % (Auto) 76.2 H, Lymph % (Auto) 8.2 L, Ford % (Auto) 12.5 H, Eos % (Auto) 2.4, Baso % (Auto) 0.2, Absolute Neuts (auto)4.8, Absolute Lymphs (auto) 0.52 L, Nucleated RBC % 0, Sodium 137, Potassium 4.2, Chloride 101, Carbon Dioxide 20.7 L, Anion Gap 16 H, BUN 55 H, Creatinine 1.42 H, Estim Creat Clear Calc 47.84 L, Est GFR (MDRD) Non-Af 54 L, BUN/Creatinine Ratio 38.9 H, Glucose 81, Calcium 8.6 Micro: Microbiology 10/10/24 03:18 Urine Catheter - Mackenzie Urine Culture - Final Klebsiella pneumoniae sp pneum Presumptive C albicans Escherichia coli 10/10/24 01:50 Blood Culture (Wb) - Anticubital Right Blood Culture - Preliminary No growth in 48 hours. 10/10/24 01:37 Blood Culture (Wb) - Anticubital Left Blood Culture - Preliminary No growth in 48 hours. 10/10/24 03:05 Mucosa - Nasopharyngeal Respiratory Panel (PCR) - Final 10/10/24 03:18 Urine Catheter - Catheter Streptococcus pneumoniae Antigen (M- Final 10/10/24 03:18 Urine Catheter - Mackenzie Legionella Antigen - Final 10/10/24 01:40 Mucosa - Nose SARS-CoV-2, Influenza & RSV (PCR) - Final Radiography Diagnostic Testing: Radiology Impression Chest X-Ray 10/13/24 10:51 IMPRESSION: Unchanged bilateral perihilar opacities, likely infection/inflammatory etiology. Development of at least moderate bilateral pleural effusions. Reading Location: [facility] Rhythm Strip Rhythm Strip: Sinus Rhythm Rate: 79 Physical Exam Narrative General: Alert, no apparent distress HEENT: Atraumatic, normocephalic Eyes: Anicteric, Neck: Supple Respiratory: Diminished bilaterally, no significant respiratory distress Cardiovascular: Regular rate GI: Soft, nontender, nondistended Extremities: No significant pitting edema Musculoskeletal: Moving all extremities Neuro: No overt focal neurological deficits Skin: No rashes appreciated Psych: Cooperative Assessment & Plan Assessment/Plan (1) Combined systolic and diastolic congestive heart failure: QUALIFIERS: Heart failure chronicity: acute on chronic Qualified Code(s): I50.43 - Acute on chronic combined systolic (congestive) and diastolic (congestive) heart failure PLAN: Plan # Elevated troponin -Patient's EKG with diffuse ST segment depressions, echo showed EF of 35% with basilar segmental wall motion abnormalities -Continuing patient on aspirin, Plavix, statin, carvedilol added -Given patient's clinical status and MADELEINE the recommendation is for pharmacologicnuclear stress test once stabilized however discussed today with cardiology and given patient's continued oxygen requirements and acute illness as well as UTI and antibiotics, cardiology recommending that patient may benefit from further workup on outpatient basis once he is optimized. -Reevaluate patient in a.m. # MADELEINE -Baseline renal function with creatinine of 0.6-0.7, on admission creatinine 1.39 and jumped further to 2.11, lisinopril held and Lasix drip discontinued andnephrology consulted, felt that this was multifactorial and began to improve again -Patient resumed on IV Lasix given worsening respiratory status with resumption on 10/13 -Repeat creatinine in a.m., monitor volume status # Chronic suprapubic catheter with abnormal UA and urine culture -Patient on Rocephin, patient grew Klebsiella and E. coli in urine although these were low colony counts -ID following, plan will be short course of p.o. antibiotics on discharge # Acute hypoxic respiratory failure -Patient was 86% on room air and required Airvo -Patient back on IV Lasix as of 10/13, monitor kidney function respiratory status #Hx CAD w/ CABG/history of right CEA/history of stroke/history of PAD -CABG several years ago and heart cath in 2015 which showed all 4 of his grafts were patent -Continue aspirin, Plavix, statin # Acute exacerbation of combined heart failure -Patient's EF here 35% with basilar segmental wall motion abnormalities and stage III diastolic dysfunction -Cardiology following, continue diuretics -Continue to monitor volume status -2+ MR #Type 2 diabetes mellitus -Glucose checks and sliding scale insulin -Continue to adjust patient's long-acting and short acting as needed #ALEJANDRO -Continue home NIPPV if applicable #GERD -Continue PPI #Depression/anxiety -Continue home medications #DVT ppx: SCDs Nicole Smith MD Charges/Coding Visit Charges Inpatient E&M: 14223 Subs Hosp L2 10/14/24 6130 <Electronically signed by Nicole Smith MD> Cosigner Signature (if applicable): CC: ~ Signed [facility] Work Phone: [phone] Progress note Author Chris Collins [facility] Note Date/Time October 14, 2024 12: 53pm [facility] Medical Records Department [address] [place] [address] Progress Note - Infect Disease 10/14/24 1251 MR#: [id number] Acct: [id number] Name: YONY VEGA Rep #:[id number] : 1955 68 From: Chris kumar MD PCP: Dr. Kendy Modi MD Status:ADM IN Location: [place] [address] Physical Exam Narrative Feeling better, no fever, no n/v/d, no abd pain. Const alert and no apparent distress General Appearance: cooperative Resp normal air movement and clear to auscultation bilaterally Cardio regular rate and regular rhythm GI soft to palpation, non-tender and non-distended Extremity General Extremity: edema Skin no rashes or lesions noted ID ID: Route of nutrition/ use of supplements: [] Nutritional Intake: [] IV Site: [] Mackenzie Catheter: [] Assessment & Plan Assessment/Plan (1) Combined systolic and diastolic congestive heart failure: (2) Acute kidney injury: (3) UTI (urinary tract infection): PLAN: Ucx with klebs, cameron, ecoli. Will cont with ceftriaxone. Recent ucx with klebs. Plan on short course po abx at discharge. MADELEINE improved. Will follow 10/14/24 1253 <Electronically signed by Chris Collins MD> Cosigner Signature (if applicable): CC: ~ Signed [facility] Work Phone: [phone] Progress note Author Etienne Darden [facility] Note Date/Time October 14, 2024 8:4 9am [facility] Medical Records Department [address] [place] [address] Progress Note - Cardiology 10/14/24 0841 MR#: [id number] Acct: [id number] Name: YONY VEGA Rep #:[id number] : 1955 68 From: Etienne Darden MD PCP: Dr. Kendy Modi MD Status:ADM IN Location: [place] [address] Subjective Subjective Patient is resting comfortably in the bed. He denies any back or arm discomfortwhich was his previous anginal equivalent prior to his bypass graft surgery several years ago. He had a cath in 2016 which showed all 4 of his grafts were patent. He has a ZUNIGA and a free radial and 2 vein grafts. The patient's EF onthe echo here was 35% with basilar segmental wall motion abnormalities. His EKGshowed diffuse ST segment depressions. His creatinine is increased from 1.3-2.3on Lasix he did have probable contrast-induced nephropathy from his CTA. He also has a history of suprapubic catheter and a UTI with Klebsiella growing. Telemetry today shows normal sinus rhythm at 79 bpm. Objective Data Vital Signs: Vital Signs Temp Pulse Resp BP Pulse Ox O2 Del Method O2 Flow Rate 97.9 F 78 16 111/72 93 Nasal Cannula 5 10/14/24 03:15 10/14/24 03:15 10/14/24 03:15 10/14/24 03:15 10/14/24 03:15 10/14/24 03:15 10/14/24 03:15 FiO2 45 10/13/24 04:00 Oxygen Flow Rate (L/min) 5 Oxygen Delivery Method Nasal Cannula Weight: 149 lb 0.52 oz Body Mass Index (BMI) 23.3 Intake & Output: Intake and Output for Last 24 Hours 10/12/24 10/14/24 10/14/24 23:59 00:59 23:59 Intake Total 2830 / 2830 630 / 630 Output Total 1275 / 1525 2275 / 2275 300 / 300 Balance 1555 / 1305 -1645 / -1645 -300 / -300 Lab / Micro Data 10/14/24 04:49 10/14/24 04:49 Labs: Laboratory Results - last 24 hr 10/13/24 08:31: POC Glucose 156 H 10/13/24 08:45: WBC 7.6, RBC 3.57 L, Hgb 10.3 L, Hct 32.1 L, MCV 89.9, MCH 28.9,MCHC 32.1, RDW Std Deviation 48.5 H, RDW Coeff of Maia 14.9 H, Plt Count 215, MPV10.5, Immature Gran % (Auto) 0.700, Neut % (Auto) 76.0 H, Lymph % (Auto) 9.6 L, Ford % (Auto) 12.0 H, Eos % (Auto) 1.4, Baso % (Auto) 0.3, Absolute Neuts (auto)5.8, Absolute Lymphs (auto) 0.73 L, Nucleated RBC % 0, Sodium 134, Potassium 4.6, Chloride 97 L, Carbon Dioxide 22.2, Anion Gap 15, BUN 60 H, Creatinine 2.08H, Estim Creat Clear Calc 32.66 L, Est GFR (MDRD) Non-Af 34 L, BUN/Creatinine Ratio 29.0 H, Glucose 169 H, Calcium 9.0, NT pro BNP II 8718 H 10/13/24 11:39: POC Glucose 146 H 10/13/24 16:38: POC Glucose 212 H 10/13/24 21:05: POC Glucose 234 H 10/14/24 04:49: WBC 6.3, RBC 3.29 L, Hgb 9.4 L, Hct 28.8 L, MCV 87.5, MCH 28.6, MCHC 32.6, RDW Std Deviation 46.5 H, RDW Coeff of Maia 14.5, Plt Count 222, MPV 10.2, Immature Gran % (Auto) 0.500, Neut % (Auto) 76.2 H, Lymph % (Auto) 8.2 L, Ford % (Auto) 12.5 H, Eos % (Auto) 2.4, Baso % (Auto) 0.2, Absolute Neuts (auto)4.8, Absolute Lymphs (auto) 0.52 L, Nucleated RBC % 0, Sodium 137, Potassium 4.2, Chloride 101, Carbon Dioxide 20.7 L, Anion Gap 16 H, BUN 55 H, Creatinine 1.42 H, Estim Creat Clear Calc 47.84 L, Est GFR (MDRD) Non-Af 54 L, BUN/Creatinine Ratio 38.9 H, Glucose 81, Calcium 8.6 Micro: Microbiology 10/10/24 03:18 Urine Catheter - Mackenzie Urine Culture - Final Klebsiella pneumoniae sp pneum Presumptive C albicans Escherichia coli Rhythm Strip Rhythm Strip: Sinus Rhythm Rate: 79 Cardiology Labs/Tests 10/13/24 08:45: WBC 7.6, RBC 3.57 L, Hgb 10.3 L, Hct 32.1 L, MCV 89.9, MCH 28.9,MCHC 32.1, Plt Count 215, MPV 10.5, Immature Gran % (Auto) 0.700, Neut % (Auto) 76.0 H, Lymph % (Auto) 9.6 L, Ford % (Auto) 12.0 H, Eos % (Auto) 1.4, Baso % (Auto) 0.3, Absolute Neuts (auto) 5.8, Nucleated RBC % 0, Sodium 134, Potassium 4.6, Chloride 97 L, Carbon Dioxide 22.2, Anion Gap 15, BUN 60 H, Creatinine 2.08H, Est GFR (MDRD) Non-Af 34 L, BUN/Creatinine Ratio 29.0 H, Glucose 169 H, Calcium 9.0 10/14/24 04:49: WBC 6.3, RBC 3.29 L, Hgb 9.4 L, Hct 28.8 L, MCV 87.5, MCH 28.6, MCHC 32.6, Plt Count 222, MPV 10.2, Immature Gran % (Auto) 0.500, Neut % (Auto) 76.2 H, Lymph % (Auto) 8.2 L, Ford % (Auto) 12.5 H, Eos % (Auto) 2.4, Baso % (Auto) 0.2, Absolute Neuts (auto) 4.8, Nucleated RBC % 0, Sodium 137, Potassium 4.2, Chloride 101, Carbon Dioxide 20.7 L, Anion Gap 16 H, BUN 55 H, Creatinine 1.42 H, Est GFR (MDRD) Non-Af 54 L, BUN/Creatinine Ratio 38.9 H, Glucose 81, Calcium 8.6 Rhythm: EKG: ECHO: Stress Test: Cardiac Cath: PCI: CT Surgery: Holter monitor: EPS: PPM: CXR: Chest CT Scan: Radiography Diagnostic Testing: Radiology Impression Chest X-Ray 10/13/24 10:51 IMPRESSION: Unchanged bilateral perihilar opacities, likely infection/inflammatory etiology. Development of at least moderate bilateral pleural effusions. Reading Location: [facility] Physical Exam Const alert HEENT normocephalic Neck Neck Narrative: Patient wearing nasal cannula. Chest inspection of chest normal Resp normal respiratory effort Auscultation: rhonchi throughout Cardio regular rate, regular rhythm, S1 normal heart sound, S2 normal heart sound, no murmurs, no rub and no gallops Cardio Narrative: Distant heart tones difficult to auscultate GI GI Narrative: Left quadrant colostomy and suprapubic catheter. Extremity no pedal edema Neuro Neuro Narrative: Alert Psych mental status grossly normal Assessment & Plan Assessment/Plan (1) Combined systolic and diastolic congestive heart failure: QUALIFIERS: Heart failure chronicity: acute on chronic Qualified Code(s): I50.43 - Acute on chronic combined systolic (congestive) and diastolic (congestive) heart failure PLAN: Patient is EF 35% but he also has diastolic dysfunction. Recommend continuing current medical management. Agree with hydralazine and nitrates for afterload reduction and carvedilol 6.25 mg twice daily along with his Lasix. If the patient's renal function recovers would consider switching to hydralazinenitrate combination to ARB therapy. (2) Non-ST elevated myocardial infarction (non-STEMI): PLAN: Patient is EKG is consistent with ischemia on his initial presentation. However, he has known small vessel disease and was an extremis with hypoxia thisprobably represents a type II event. But his LV dysfunction has worsened. Would recommend pursuing a pharmacologic nuclear stress test once the patient's status has stabilized. (3) Acute kidney injury: PLAN: Plan Creatinine is improved from 2.08 on 3 9 down to 1.49 this morning. Will continue to monitor the patient's renal function. Charges/Coding Visit Charges Inpatient E&M: 11627 Subs Hosp L2 10/14/24 0849 <Electronically signed by Etienne Darden MD> Cosigner Signature (if applicable): CC: ~ Signed [facility] Work Phone: [phone] Progress note Author Matt Penny [facility] Note Date/Time October 13, 2024 2:01 pm [facility] Medical Records Department [address] [place] [address] Progress Note - Hospitalist 10/13/24 0753 MR#: [id number] Acct: [id number] Name: YONY VEGA Rep #:[id number] : 1955 68 From: Matt Simon PCP: Dr. Kendy Modi MD Status:ADM IN Location: [place] [address] Reason for Visit Reason for Visit: Diagnoses Sepsis, unspecified organism (10/10/24) Acidosis, unspecified (10/10/24) Non-ST elevation (NSTEMI) myocardial infarction (10/10/24) Atherosclerotic heart disease of ambler coronary artery without angina pectoris (10/10/24) Unspecified combined systolic (congestive) and diastolic (congestive) heart failure (10/10/24) Acute respiratory failure with hypoxia (10/10/24) Acute kidney failure, unspecified (10/10/24) Urinary tract infection, site not specified (10/10/24) Objective Data Objective Data Vital Signs: Vital Signs Temp Pulse Resp BP Pulse Ox O2 Del Method O2 Flow Rate 97.4 F L 74 14 126/75 H 94 Bi-pap 45 10/13/24 04:00 10/13/24 04:00 10/13/24 04:00 10/13/24 04:00 10/13/24 04:00 10/13/24 04:00 10/12/24 22:00 FiO2 45 10/13/24 04:00 Oxygen Flow Rate (L/min) 45 Oxygen Delivery Method Bi-pap Weight: 153 lb 0.013 oz Body Mass Index (BMI) 23.9 Intake & Output: Intake and Output for Last 24 Hours 10/11/24 10/12/24 10/14/24 23:59 23:59 00:59 Intake Total 1035.27 / 1035.27 2830 / 2830 Output Total 1200 / 1200 1275 / 1525 625 / 625 Balance -164.73 / -164.73 1555 / 1305 -625 / -625 Lab / Micro Data 10/13/24 08:45 10/13/24 08:45 Labs: Laboratory Results - last 24 hr 10/12/24 07:48: WBC 7.7, RBC 3.12 L, Hgb 9.1 L, Hct 27.7 L, MCV 88.8, MCH 29.2, MCHC 32.9, RDW Std Deviation 48.5 H, RDW Coeff of Maia 15.1 H, Plt Count 193, MPV10.4, Sodium 135, Potassium 4.4, Chloride 98, Carbon Dioxide 20.5 L, Anion Gap 16 H, BUN 51 H, Creatinine 2.37 H, Estim Creat Clear Calc 28.27 L, Est GFR (MDRD) Non-Af 29 L, BUN/Creatinine Ratio 21.6 H, Glucose 226 H, Calcium 8.3 10/12/24 11:50: POC Glucose 358 H 10/12/24 17:05: POC Glucose 241 H 10/12/24 21:53: POC Glucose 144 H Micro: Microbiology 10/10/24 01:50 Blood Culture (Wb) - Anticubital Right Blood Culture - Preliminary No growth in 48 hours. 10/10/24 01:37 Blood Culture (Wb) - Anticubital Left Blood Culture - Preliminary No growth in 48 hours. 10/10/24 03:18 Urine Catheter - Mackenzie Urine Culture - 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 lactose microfilm clerk Gram negative moncho Presumptive C albicans 10/10/24 03:05 Mucosa - Nasopharyngeal Respiratory Panel (PCR) - Final 10/10/24 03:18 Urine Catheter - Catheter Streptococcus pneumoniae Antigen (M- Final 10/10/24 03:18 Urine Catheter - Mackenzie Legionella Antigen - Final 10/10/24 01:40 Mucosa - Nose SARS-CoV-2, Influenza & RSV (PCR) - Final Rhythm Strip Rhythm Strip: Sinus Tach Physical Exam Narrative Seen and examined. Patient mild shortness of breath. He was on BiPAP 45% FiO2 yesterday. His oxygen increased from 3 L to 10 L but most recently 7 L/min. Patient was put back on the Lasix 40 mg IV twice daily. BNP also high. Discussed with the software qa system specialist. Physical exam: General: Awake, oriented x 3. HEENT: Atraumatic, EOMI, Normocephalic Oral: On alternate BiPAP and high flow oxygen Neck: Supple, JVP elevated. Negative Carotid Bruits Chest wall/Lungs: Air entry diminished in bilateral lung bases. Mild fine crepitations. Cardiovascular: Sinus rhythm, Normal S1, Normal S2, No M/G/R Abdomen: Bowel Sounds Present, Soft, colostomy and mucosal fistula. Surgical dressing. : Suprapubic catheter. Clear urine on the tube No suprapubic tenderness. Extremities: Mild pedal edema, Capillary Refill Less than 3 Seconds Skin: No rashes, No breakdown Musculoskeletal: No Tenderness to Palpation of Joints or Extremities. ROM limited. Neurological: No focal neurological deficit. Cranial nerves II to XII intact. Psych/Mental Status: Flat affect Assessment & Plan Assessment/Plan (1) Sepsis: PLAN: Plan The patient is a 68 y/o M who is being admitted in ICU after patient's family brought to ED for confusion along with low-grade fever and altered mental status. He also had fatigue muscle aches and headache for last 12 hours. #1. Suspected sepsis due to pneumonia/complicated UTI: Patient is being admitted in ICU. The patient presented with suspected sepsis with clinical indicators of tachycardia, tachypnea, hypoxia, mild leukocytosis due to complicated CAUTI (suprapubic catheter) and possible pneumonia with acute sepsis-related organ dysfunction as evidenced by lactic acidosis, drop in SBP from baseline about 147-150 mmHg to 100 -106 mmHg and acute hypoxic respiratory failure requiring BiPAP/Airvo. Patient did not require pressors yet. Chest x-ray CT scan reviewed and shows mainly pulmonary edema with no filling defect to suggest pulmonary embolism. Small bilateral pleural effusion with partial collapse of adjacent lower lobes. Possible infectious process/pneumonia Patient not candidate for sepsis protocol fluid because of pulmonary edema Patient on IV vancomycin and Zosyn. Linen Room Supervisor consulted. Infectious workup ordered. 10/11: Respiratory panel and urinary antigens are negative. Triple PCR for SARS-CoV-2, flu and RSV are negative. Vancomycin and Zosyn discontinued becauseof MADELEINE. ID consulted for further opinion and change of antibiotic. Possible ceftriaxone/fluoroquinolone based on previous cultures 10/12: Patient was seen by ID yesterday. IV vancomycin and Zosyn was changed to ceftriaxone yesterday. Urine culture shows GNR, GNR lactose microfilm clerk not in pathology range suggestive of contamination. Recent urine culture with Klebsiella. 2. Acute hypoxic respiratory failure: Patient was 86% on room air. ABG shows 7.31/40/72 on 85% FiO2 Airvo suggestive of increased AA gradient. Bicarb 22. Anion gap 16 creatinine therefore increased anion gap metabolic acidosis 3: Respiratory status is better. Patient looks more calm with less shortness of breath though remains hypoxic 3: Respiratory status worse than yesterday and overnight patient was on BiPAP. Patient was put back on the Lasix questionable. #2. 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 Chest x-ray suggestive of pulmonary edema. Troponins elevated but [place], 409, 407 and 11/12/1976. proBNP hide about 3000. As Patient on IV heparin drip, aspirin and Plavix. Director Of Materials consulted. 2D echo ordered. ECHO noted 05/28/2024 with LVEF 60%, moderate focal MV calcification, bileaflet, mild MVI, mild TBI, moderate diffuse aortic valve calcification with sclerosis without stenosis 10/11: Repeat echo shows severe LV segmental wall motion abnormality, EF 35 to 40%, stage III diastolic dysfunction, LA severely enlarged. Moderate 2+ MR, moderate to severe TR. 10/12: Discussed with the software qa system specialist. #3. Acute kidney injury on CKD 2: admission BUN/Cr 26/1.39, GFR 56, baseline renal function primarily 0.6-0.7. Hold nephrotoxic 10/11: Marked Jump on creatinine from 1.33-2.11. Hold furosemide drip. DC lisinopril vancomycin and Zosyn discontinued as Zosyn increases creatinine with increased tubular secretion. Production Specialist consulted 10/12: Patient was seen by vessel liner on 10/11. MADELEINE from multiple etiologies, diuretic, heart failure, cardiorenal disease, IV contrast with probability of ATN as per the vessel liner. Continue supportive treatment. Creatinine 2.08 similar to yesterday #4. CAD and peripheral arterial disease and carotid disease status post right CEA and history of stroke/CVA: Status post CABG x 5 with ZUNIGA to LAD and D1, free KIMBERLYN to PDA, SVG to ramus, SVG to OM1 2007 and PCI including [id number]-vetly 2014: Continue aspirin, Plavix, statin, Coreg. Patient not on ILDA/ARB because of MADELEINE. Patient also has PAD with PTCA left anterior tibial and peroneal artery. 5. Hypertension: Continue home regimen including amlodipine, Coreg, IV Lasix asable, PRN hydralazine. 6. Hyperlipidemia: Continue home statin regimen. Lipid profile ordered for tomorrow a.m. 7. Diabetes mellitus type II with chronic neuropathy: Accu-Chek before meals and at bedtime with Humalog sliding scale coverage and hypoglycemia protocol. Continue gabapentin 10/12: Glucose is high. Started on scheduled Humalog insulin 15 subcutaneous 3 times daily 8. Anxiety and depression: On duloxetine 9. Chronic normocytic anemia: Admission hemoglobin 12.4, MCV 88, baseline hemoglobin 10-11 primarily. On beta 10. History colorectal cancer: Patient s/p resection with radiation and chemotherapy in 2020, has colostomy 11. ALEJANDRO: Normally uses CPAP nightly, initially in the ED transitioned to high flow/Airvo, given overload concern transitioned to BIPAP. 12. BPH with obstructive pathology with chronic suprapubic catheter: On Flomax. Suspected UTI, OT 10/12: Patient had nonfunctioning bladder with history of retention therefore had suprapubic catheter by outside urologist. Yesterday Dr. Otero was consulted and he changed the suprapubic catheter 18 Tristanian size. 14. GERD: continue patient on PPI. 15DVT prophylaxis: continue heparin drip. . CODE status: Patient healthcare Pap workers compensation defense attorney living will not in place but hiswife who is present would be his medical decision-maker if necessary. Discussed CODE status at length including difference between FULL code, DNR-CCA and DNR- CCstatus. Following discussions about the differences in these status, requested DNR-CCA, no intubation. Verified CODE STATUS and gave example including what patient would want if his heart was still beating but he stopped breathing and even the situation he and his declined intubation. Microbiology Past 72 Hours 10/10/24 03:18 Urine Catheter - Mackenzie Urine Culture - Final Klebsiella pneumoniae sp pneum Presumptive C albicans Escherichia coli 10/10/24 01:50 Blood Culture (Wb) - Anticubital Right Blood Culture - Preliminary No growth in 48 hours. 10/10/24 01:37 Blood Culture (Wb) - Anticubital Left Blood Culture - Preliminary No growth in 48 hours. Laboratory Results 10/12/24 17:05: POC Glucose 241 H 10/12/24 21:53: POC Glucose 144 H 10/13/24 08:31: POC Glucose 156 H 10/13/24 08:45: WBC 7.6, RBC 3.57 L, Hgb 10.3 L, Hct 32.1 L, MCV 89.9, MCH 28.9,MCHC 32.1, RDW Std Deviation 48.5 H, RDW Coeff of Maia 14.9 H, Plt Count 215, MPV10.5, Immature Gran % (Auto) 0.700, Neut % (Auto) 76.0 H, Lymph % (Auto) 9.6 L, Ford % (Auto) 12.0 H, Eos % (Auto) 1.4, Baso % (Auto) 0.3, Absolute Neuts (auto)5.8, Absolute Lymphs (auto) 0.73 L, Nucleated RBC % 0, Sodium 134, Potassium 4.6, Chloride 97 L, Carbon Dioxide 22.2, Anion Gap 15, BUN 60 H, Creatinine 2.08H, Estim Creat Clear Calc 32.66 L, Est GFR (MDRD) Non-Af 34 L, BUN/Creatinine Ratio 29.0 H, Glucose 169 H, Calcium 9.0, NT pro BNP II 8718 H 10/13/24 11:39: POC Glucose 146 H Charges/Coding Addendum Addendum: Total time of the visit including total time spent in counseling or coordinationof care, (more than 50% of the total time, spent in obtaining medical information from nurses and other ancillary care providers ,explaining to the patient about labs, imaging, diagnosis and management of active complex medical conditions), discussion with the software qa system specialist and vessel liner, management of complex active clinical problems review of labs and imaging is 35 minutes. Visit Charges Inpatient E&M: 27636 Subs Hosp L3 10/13/24 1401 <Electronically signed by Matt Penny MD> Cosigner Signature (if applicable): CC: ~ Signed [facility] Work Phone: [phone]) [phone] Progress note Author Prateek Smith [facility] Note Date/Time October 13, 2024 10:5 6am [facility] Medical Records Department [address] [place] [address] Progress Note - Cardiology 10/13/24 1049 MR#: [id number] Acct: [id number] Name: YONY VEGA Rep #:[id number] : 1955 68 From: Prateek Smith MD PCP: Dr. Kendy Modi MD Status:ADM IN Location: [place] [address] Subjective Subjective Sitting up in chair. Complaining of some shortness of breath. No chest pain. Objective Data Vital Signs: Vital Signs Temp Pulse Resp BP Pulse Ox O2 Del Method O2 Flow Rate 97.9 F 83 18 126/70 H 93 High Flow 9 10/13/24 08:58 10/13/24 08:58 10/13/24 08:58 10/13/24 08:58 10/13/24 08:58 10/13/24 09:01 10/13/24 09:01 FiO2 45 10/13/24 04:00 Oxygen Flow Rate (L/min) 9 Oxygen Delivery Method High Flow Weight: 153 lb 0.013 oz Body Mass Index (BMI) 23.9 Intake & Output: Intake and Output for Last 24 Hours 10/11/24 10/12/24 10/14/24 23:59 23:59 00:59 Intake Total 1035.27 / 1035.27 2830 / 2830 50 / 50 Output Total 1200 / 1200 1275 / 1525 625 / 625 Balance -164.73 / -164.73 1555 / 1305 -575 / -575 Lab / Micro Data Attestation: I reviewed the patient's lab results. 10/13/24 08:45 10/13/24 08:45 Labs: Laboratory Results - last 24 hr 10/12/24 07:48: Sodium 135, Potassium 4.4, Chloride 98, Carbon Dioxide 20.5 L, Anion Gap 16 H, BUN 51 H, Creatinine 2.37 H, Estim Creat Clear Calc 28.27 L, Est GFR (MDRD) Non-Af 29 L, BUN/Creatinine Ratio 21.6 H, Glucose 226 H, Calcium 8.3 10/12/24 11:50: POC Glucose 358 H 10/12/24 17:05: POC Glucose 241 H 10/12/24 21:53: POC Glucose 144 H 10/13/24 08:45: WBC 7.6, RBC 3.57 L, Hgb 10.3 L, Hct 32.1 L, MCV 89.9, MCH 28.9,MCHC 32.1, RDW Std Deviation 48.5 H, RDW Coeff of Maia 14.9 H, Plt Count 215, MPV10.5, Immature Gran % (Auto) 0.700, Neut % (Auto) 76.0 H, Lymph % (Auto) 9.6 L, Ford % (Auto) 12.0 H, Eos % (Auto) 1.4, Baso % (Auto) 0.3, Absolute Neuts (auto)5.8, Absolute Lymphs (auto) 0.73 L, Nucleated RBC % 0, Sodium 134, Potassium 4.6, Chloride 97 L, Carbon Dioxide 22.2, Anion Gap 15, BUN 60 H, Creatinine 2.08H, Estim Creat Clear Calc 32.66 L, Est GFR (MDRD) Non-Af 34 L, BUN/Creatinine Ratio 29.0 H, Glucose 169 H, Calcium 9.0 Micro: Microbiology 10/10/24 03:18 Urine Catheter - Mackenzie Urine Culture - Final Klebsiella pneumoniae sp pneum Presumptive C albicans Escherichia coli 10/10/24 01:50 Blood Culture (Wb) - Anticubital Right Blood Culture - Preliminary No growth in 48 hours. 10/10/24 01:37 Blood Culture (Wb) - Anticubital Left Blood Culture - Preliminary No growth in 48 hours. Rhythm Strip Rhythm Strip: Sinus Rhythm Cardiology Labs/Tests 10/12/24 07:48: Sodium 135, Potassium 4.4, Chloride 98, Carbon Dioxide 20.5 L, Anion Gap 16 H, BUN 51 H, Creatinine 2.37 H, Est GFR (MDRD) Non-Af 29 L, BUN/Creatinine Ratio 21.6 H, Glucose 226 H, Calcium 8.3 10/13/24 08:45: WBC 7.6, RBC 3.57 L, Hgb 10.3 L, Hct 32.1 L, MCV 89.9, MCH 28.9,MCHC 32.1, Plt Count 215, MPV 10.5, Immature Gran % (Auto) 0.700, Neut % (Auto) 76.0 H, Lymph % (Auto) 9.6 L, Ford % (Auto) 12.0 H, Eos % (Auto) 1.4, Baso % (Auto) 0.3, Absolute Neuts (auto) 5.8, Nucleated RBC % 0, Sodium 134, Potassium 4.6, Chloride 97 L, Carbon Dioxide 22.2, Anion Gap 15, BUN 60 H, Creatinine 2.08H, Est GFR (MDRD) Non-Af 34 L, BUN/Creatinine Ratio 29.0 H, Glucose 169 H, Calcium 9.0 Rhythm: EKG: ECHO: Stress Test: Cardiac Cath: PCI: CT Surgery: Holter monitor: EPS: PPM: CXR: Chest CT Scan: Physical Exam Narrative Appears comfortable. Mild JVD. Heart sounds 1 and 2 noted. Chest examination with decreased breath sounds bilateral bases particularly right base. No ankle edema. Assessment & Plan Assessment/Plan (1) Non-ST elevated myocardial infarction (non-STEMI): PLAN: Stable. Continue medical management for now. Aspirin, clopidogrel. Beta-blockers. With patient's acute kidney injury, likely contrast induced nephropathy after his CTA chest, will hold off on any invasive workup at present. Will check Lexiscan stress Myoview. (2) Coronary artery disease: PLAN: See #1 above. (3) Combined systolic and diastolic congestive heart failure: PLAN: Restart furosemide. Monitor creatinine. Check chest x-ray. Check proBNP. (4) UTI (urinary tract infection): PLAN: On antibiotics. (5) Sepsis: PLAN: Resolved. (6) Acute kidney injury: PLAN: Nephrology input appreciated. Likely contrast induced nephropathy after his recent exposure to IV contrast for CTA chest. 10/13/24 1056 <Electronically signed by Prateek Smith MD> Cosigner Signature (if applicable): CC: ~ Signed [facility] Work Phone: [phone]) [phone] Radiology Diagnostic study [facility]03-09-2025 Progress note Author [facility] Note Date/Time October 12, 2024 10:0 7pm [facility] Medical Records Department [address] [place] [address] Progress Note - Hospitalist 10/12/242306 MR#: [id number] Acct: [id number] Name: YONY VEGA Rep #:[id number] : 1955 68 From: Kendra Yuan MD PCP: Dr. Kendy Modi MD Status:ADM IN Location: [place] [address] Hospitalist Note Increased oxygen requirements, crackles, will pulse dose with IV lasix x [address] BIPAP. 10/12/242306 <Electronically signed by Kendra Yuan MD> Cosigner Signature (if applicable): CC: ~ Signed [facility] Work Phone: [phone] Progress note Author Sonu Obrien [facility] Note Date/Time October 12, 2024 9:44 pm [facility] Medical Records Department [address] [place] [address] Progress Note - Nephrology 10/12/242227 MR#: [id number] Acct: [id number] Name: YONY VEGA Rep #:[id number] : 1955 68 From: Sonu Obrien MD PCP: Dr. Kendy Modi MD Status:ADM IN Location: [place] [address] Subjective Subjective chart reviewed -scr slightly bumped -bp ok -non oliguric -monitor for now -bmp in am Will follow with you. Objective Data Objective Data Vital Signs: Vital Signs Temp Pulse Resp BP Pulse Ox O2 Del Method O2 Flow Rate 97.9 F 86 18 110/67 92 Bi-pap 88 10/12/24 17:08 10/12/24 17:08 10/12/24 17:08 10/12/24 17:08 10/12/24 21:54 10/12/24 21:54 10/12/24 21:50 FiO2 45 10/12/24 21:54 Oxygen Flow Rate (L/min) 88 Oxygen Delivery Method Bi-pap Weight: 65.2 kg Body Mass Index (BMI) 22.5 Intake & Output: Intake and Output for Last 24 Hours 10/10/24 10/11/24 10/12/24 23:59 23:59 23:59 Intake Total 2069.17 / 2069.17 1035.27 / 1035.27 2330 / 2330 Output Total 1650 / 1650 1200 / 1200 1275 / 1275 Balance 419.17 / 419.17 -164.73 / -164.73 1055 / 1055 Lab / Micro Data 10/12/24 07:48 10/12/24 07:48 Labs: Laboratory Results - last 24 hr 10/12/24 05:57: POC Glucose 178 H 10/12/24 07:48: WBC 7.7, RBC 3.12 L, Hgb 9.1 L, Hct 27.7 L, MCV 88.8, MCH 29.2, MCHC 32.9, RDW Std Deviation 48.5 H, RDW Coeff of Maia 15.1 H, Plt Count 193, MPV10.4, Sodium 135, Potassium 4.4, Chloride 98, Carbon Dioxide 20.5 L, Anion Gap 16 H, BUN 51 H, Creatinine 2.37 H, Estim Creat Clear Calc 28.27 L, Est GFR (MDRD) Non-Af 29 L, BUN/Creatinine Ratio 21.6 H, Glucose 226 H, Calcium 8.3 10/12/24 11:50: POC Glucose 358 H 10/12/24 17:05: POC Glucose 241 H Micro: Microbiology 10/10/24 01:50 Blood Culture (Wb) - Anticubital Right Blood Culture - Preliminary No growth in 48 hours. 10/10/24 01:37 Blood Culture (Wb) - Anticubital Left Blood Culture - Preliminary No growth in 48 hours. 10/10/24 03:18 Urine Catheter - Mackenzie Urine Culture - 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 lactose microfilm clerk Gram negative moncho Presumptive C albicans 10/10/24 03:05 Mucosa - Nasopharyngeal Respiratory Panel (PCR) - Final 10/10/24 03:18 Urine Catheter - Catheter Streptococcus pneumoniae Antigen (M- Final 10/10/24 03:18 Urine Catheter - Mackenzie Legionella Antigen - Final 10/10/24 01:40 Mucosa - Nose SARS-CoV-2, Influenza & RSV (PCR) - Final Rhythm Strip Rhythm Strip: Sinus Tach 10/12/24 2244 <Electronically signed by Sonu Obrien MD> Cosigner Signature (if applicable): CC: ~ Signed [facility] Work Phone: [phone] Progress note Author Matt Penny [facility] Note Date/Time October 12, 2024 1:04 pm [facility] Medical Records Department [address] [place] [address] Progress Note - Hospitalist 10/12/24 1354 MR#: [id number] Acct: [id number] Name: YONY VEGA Rep #:[id number] : 1955 68 From: Matt Simon PCP: Dr. Kendy Modi MD Status:ADM IN Location: [place] [address] Reason for Visit Reason for Visit: Diagnoses Sepsis, unspecified organism (10/10/24) Acidosis, unspecified (10/10/24) Non-ST elevation (NSTEMI) myocardial infarction (10/10/24) Atherosclerotic heart disease of [place]bler coronary artery without angina pectoris (10/10/24) Unspecified combined systolic (congestive) and diastolic (congestive) heart failure (10/10/24) Acute respiratory failure with hypoxia (10/10/24) Acute kidney failure, unspecified (10/10/24) Urinary tract infection, site not specified (10/10/24) Objective Data Objective Data Vital Signs: Vital Signs Temp Pulse Resp BP Pulse Ox O2 Del Method O2 Flow Rate 97.8 F 84 18 104/58 L 93 Nasal Cannula 3 10/12/24 10:00 10/12/24 10:00 10/12/24 10:00 10/12/24 10:00 10/12/24 10:25 10/12/24 10:25 10/12/24 10:25 FiO2 40 10/12/24 05:47 Oxygen Flow Rate (L/min) 3 Oxygen Delivery Method Nasal Cannula Weight: 143 lb 11.862 oz Body Mass Index (BMI) 22.5 Intake & Output: Intake and Output for Last 24 Hours 10/10/24 10/11/24 10/12/24 23:59 23:59 23:59 Intake Total 2069.17 / 2069.17 1035.27 / 1035.27 1850 / 1850 Output Total 1650 / 1650 1200 / 1200 500 / 500 Balance 419.17 / 419.17 -164.73 / -164.73 1350 / 1350 Lab / Micro Data 10/12/24 07:48 10/12/24 07:48 Labs: Laboratory Results - last 24 hr 10/11/24 17:22: POC Glucose 255 H 10/11/24 20:00: POC Glucose 290 H 10/12/24 05:57: POC Glucose 178 H 10/12/24 07:48: WBC 7.7, RBC 3.12 L, Hgb 9.1 L, Hct 27.7 L, MCV 88.8, MCH 29.2, MCHC 32.9, RDW Std Deviation 48.5 H, RDW Coeff of Maia 15.1 H, Plt Count 193, MPV10.4, Sodium 135, Potassium 4.4, Chloride 98, Carbon Dioxide 20.5 L, Anion Gap 16 H, BUN 51 H, Creatinine 2.37 H, Estim Creat Clear Calc 28.27 L, Est GFR (MDRD) Non-Af 29 L, BUN/Creatinine Ratio 21.6 H, Glucose 226 H, Calcium 8.3 10/12/24 11:50: POC Glucose 358 H Micro: Microbiology 10/10/24 03:18 Urine Catheter - Mackenzie Urine Culture - 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 lactose microfilm clerk Gram negative moncho Presumptive C albicans 10/10/24 03:05 Mucosa - Nasopharyngeal Respiratory Panel (PCR) - Final 10/10/24 03:18 Urine Catheter - Catheter Streptococcus pneumoniae Antigen (M- Final 10/10/24 03:18 Urine Catheter - Mackenzie Legionella Antigen - Final 10/10/24 01:40 Mucosa - Nose SARS-CoV-2, Influenza & RSV (PCR) - Final Rhythm Strip Rhythm Strip: Sinus Tach Physical Exam Narrative Seen and examined. Patient on oxygen nasal cannula. Downgraded from ICU to PCU. Shortness of breath is better. Currently off BiPAP in the morning. Hypoxia, improved from 8L of oxygen, to 3 L/min Physical exam: General: Awake, oriented x 3. HEENT: Atraumatic, EOMI, Normocephalic Oral: On alternate BiPAP and high flow oxygen Neck: Supple, No JVD, Negative Carotid Bruits Chest wall/Lungs: Air entry diminished in bilateral lung bases. Lungs clear. No crepitations Cardiovascular: Sinus rhythm, Normal S1, Normal S2, No M/G/R Abdomen: Bowel Sounds Present, Soft, colostomy and mucosal fistula. Surgical dressing. Dry : Suprapubic catheter. Clear urine on the tube No suprapubic tenderness. Extremities: Mild pedal edema, Capillary Refill Less than 3 Seconds Skin: No rashes, No breakdown Musculoskeletal: No Tenderness to Palpation of Joints or Extremities. ROM limited. Neurological: No focal neurological deficit. Cranial nerves II to XII intact. Psych/Mental Status: Flat affect Assessment & Plan Assessment/Plan (1) Sepsis: PLAN: Plan The patient is a 68 y/o M who is being admitted in ICU after patient's family brought to ED for confusion along with low-grade fever and altered mental status. He also had fatigue muscle aches and headache for last 12 hours. #1. Suspected sepsis due to pneumonia/complicated UTI: Patient is being admitted in ICU. The patient presented with suspected sepsis with clinical indicators of tachycardia, tachypnea, hypoxia, mild leukocytosis due to complicated CAUTI (suprapubic catheter) and possible pneumonia with acute sepsis-related organ dysfunction as evidenced by lactic acidosis, drop in SBP from baseline about 147-150 mmHg to 100 -106 mmHg and acute hypoxic respiratory failure requiring BiPAP/Airvo. Patient did not require pressors yet. Chest x-ray CT scan reviewed and shows mainly pulmonary edema with no filling defect to suggest pulmonary embolism. Small bilateral pleural effusion with partial collapse of adjacent lower lobes. Possible infectious process/pneumonia Patient not candidate for sepsis protocol fluid because of pulmonary edema Patient on IV vancomycin and Zosyn. Linen Room Supervisor consulted. Infectious workup ordered. 10/11: Respiratory panel and urinary antigens are negative. Triple PCR for SARS-CoV-2, flu and RSV are negative. Vancomycin and Zosyn discontinued becauseof MADELEINE. ID consulted for further opinion and change of antibiotic. Possible ceftriaxone/fluoroquinolone based on previous cultures 10/12: Patient was seen by ID yesterday. IV vancomycin and Zosyn was changed to ceftriaxone yesterday. Urine culture shows GNR, GNR lactose microfilm clerk not in pathology range suggestive of contamination. Recent urine culture with Klebsiella. 2. Acute hypoxic respiratory failure: Patient was 86% on room air. ABG shows 7.31/40/72 on 85% FiO2 Airvo suggestive of increased AA gradient. Bicarb 22. Anion gap 16 creatinine therefore increased anion gap metabolic acidosis. 3: Respiratory status is better. Patient looks more calm with less shortness of breath though remains hypoxic #2. 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 Chest x-ray suggestive of pulmonary edema. Troponins elevated but [place], 409, 407 and 11/12/1976. proBNP hide about 3000. As Patient on IV heparin drip, aspirin and Plavix. Director Of Materials consulted. 2D echo ordered. ECHO noted 05/28/2024 with LVEF 60%, moderate focal MV calcification, bileaflet, mild MVI, mild TBI, moderate diffuse aortic valve calcification with sclerosis without stenosis 10/11: Repeat echo shows severe LV segmental wall motion abnormality, EF 35 to 40%, stage III diastolic dysfunction, LA severely enlarged. Moderate 2+ MR, moderate to severe TR. 10/12: Respiratory status is getting better. Diuretic on hold. #3. Acute kidney injury on CKD 2: admission BUN/Cr 26/1.39, GFR 56, baseline renal function primarily 0.6-0.7. Hold nephrotoxic 10/11: Marked Jump on creatinine from 1.33-2.11. Hold furosemide drip. DC lisinopril vancomycin and Zosyn discontinued as Zosyn increases creatinine with increased tubular secretion. Production Specialist consulted 10/12: Patient was seen by vessel liner on 10/11. MADELEINE from multiple etiologies, diuretic, heart failure, cardiorenal disease, IV contrast with probability of ATN as per the vessel liner #4. CAD and peripheral arterial disease and carotid disease status post right CEA and history of stroke/CVA: Status post CABG x 5 with ZUNIGA to LAD and D1, free KIMBERLYN to PDA, SVG to ramus, SVG to OM1 2007 and PCI including [id number] 2014: Continue aspirin, Plavix, statin, Coreg. Patient not on ILDA/ARB because of MADELEINE. Patient also has PAD with PTCA left anterior tibial and peroneal artery. 5. Hypertension: Continue home regimen including amlodipine, Coreg, IV Lasix asable, PRN hydralazine. 6. Hyperlipidemia: Continue home statin regimen. Lipid profile ordered for tomorrow a.m. 7. Diabetes mellitus type II with chronic neuropathy: Accu-Chek before meals and at bedtime with Humalog sliding scale coverage and hypoglycemia protocol. Continue gabapentin 10/12: Glucose is high. Started on scheduled Humalog insulin 15 subcutaneous 3 times daily 8. Anxiety and depression: On duloxetine 9. Chronic normocytic anemia: Admission hemoglobin 12.4, MCV 88, baseline hemoglobin 10-11 primarily. On beta 10. History colorectal cancer: Patient s/p resection with radiation and chemotherapy in 2020, has colostomy 11. ALEJANDRO: Normally uses CPAP nightly, initially in the ED transitioned to high flow/Airvo, given overload concern transitioned to BIPAP. 12. BPH with obstructive pathology with chronic suprapubic catheter: On Flomax. Suspected UTI, OT 10/12: Patient had nonfunctioning bladder with history of retention therefore had suprapubic catheter by outside urologist. Yesterday Dr. Otero was consulted and he changed the suprapubic catheter 18 Tristanian size. 14. GERD: continue patient on PPI. 15DVT prophylaxis: continue heparin drip. . CODE status: Patient healthcare Pap workers compensation defense attorney living will not in place but hiswife who is present would be his medical decision-maker if necessary. Discussed CODE status at length including difference between FULL code, DNR-CCA and DNR- CCstatus. Following discussions about the differences in these status, requested DNR-CCA, no intubation. Verified CODE STATUS and gave example including what patient would want if his heart was still beating but he stopped breathing and even the situation he and his declined intubation. Charges/Coding Visit Charges Inpatient E&M: 04592 Subs Hosp L3 10/12/24 7112 <Electronically signed by Matt Penny MD> Cosigner Signature (if applicable): CC: ~ Signed [facility] Work Phone: [phone] Progress note Author Prateek Smith [facility] Note Date/Time October 12, 2024 9:42 am [facility] Medical Records Department [address] [place] [address] Progress Note - Cardiology 10/12/24 1039 MR#: [id number] Acct: [id number] Name: YONY VEGA Rep #:[id number] : 1955 68 From: Prateek Smith MD PCP: Dr. Kendy Modi MD Status:ADM IN Location: [place] [address] Subjective Subjective Sitting up in chair. Looks much improved. Denies any complaints. Objective Data Vital Signs: Vital Signs Temp Pulse Resp BP Pulse Ox O2 Del Method O2 Flow Rate 97.8 F 84 18 104/58 L 93 Nasal Cannula 3 10/12/24 10:00 10/12/24 10:00 10/12/24 10:00 10/12/24 10:00 10/12/24 10:25 10/12/24 10:25 10/12/24 10:25 FiO2 40 10/12/24 05:47 Oxygen Flow Rate (L/min) 3 Oxygen Delivery Method Nasal Cannula Weight: 143 lb 11.862 oz Body Mass Index (BMI) 22.5 Intake & Output: Intake and Output for Last 24 Hours 10/10/24 10/11/24 10/12/24 23:59 23:59 23:59 Intake Total 2069.17 / 2069.17 1035.27 / 1035.27 1240 / 1240 Output Total 1650 / 1650 1200 / 1200 150 / 150 Balance 419.17 / 419.17 -164.73 / -164.73 1090 / 1090 Lab / Micro Data Attestation: I reviewed the patient's lab results. 10/12/24 07:48 10/12/24 07:48 Labs: Laboratory Results - last 24 hr 10/11/24 10:33: POC Glucose 180 H 10/11/24 17:22: POC Glucose 255 H 10/11/24 20:00: POC Glucose 290 H 10/12/24 05:57: POC Glucose 178 H 10/12/24 07:48: WBC 7.7, RBC 3.12 L, Hgb 9.1 L, Hct 27.7 L, MCV 88.8, MCH 29.2, MCHC 32.9, RDW Std Deviation 48.5 H, RDW Coeff of Maia 15.1 H, Plt Count 193, MPV10.4, Sodium 135, Potassium 4.4, Chloride 98, Carbon Dioxide 20.5 L, Anion Gap 16 H, BUN 51 H, Creatinine 2.37 H, Estim Creat Clear Calc 28.27 L, Est GFR (MDRD) Non-Af 29 L, BUN/Creatinine Ratio 21.6 H, Glucose 226 H, Calcium 8.3 Micro: Microbiology 10/10/24 03:18 Urine Catheter - Mackenzie Urine Culture - 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 lactose microfilm clerk Gram negative moncho Presumptive C albicans Rhythm Strip Rhythm Strip: Sinus Tach Cardiology Labs/Tests 10/12/24 07:48: WBC 7.7, RBC 3.12 L, Hgb 9.1 L, Hct 27.7 L, MCV 88.8, MCH 29.2, MCHC 32.9, Plt Count 193, MPV 10.4, Sodium 135, Potassium 4.4, Chloride 98, Carbon Dioxide 20.5 L, Anion Gap 16 H, BUN 51 H, Creatinine 2.37 H, Est GFR (MDRD) Non-Af 29 L, BUN/Creatinine Ratio 21.6 H, Glucose 226 H, Calcium 8.3 Rhythm: EKG: ECHO: Stress Test: Cardiac Cath: PCI: CT Surgery: Holter monitor: EPS: PPM: CXR: Chest CT Scan: Physical Exam Narrative Comfortable. Heart sounds 1 and 2 noted. Chest clear to auscultation bilaterally. No ankle edema. Assessment & Plan Assessment/Plan (1) Non-ST elevated myocardial infarction (non-STEMI): PLAN: Stable. Continue medical management for now. Aspirin, clopidogrel. Beta-blockers. Coronary angiography when his other medical issues resolved and acute kidney injury resolves. (2) Coronary artery disease: PLAN: See #1 above. (3) Combined systolic and diastolic congestive heart failure: PLAN: No fluid volume overload clinically. Continue to monitor. (4) UTI (urinary tract infection): PLAN: On antibiotics. (5) Sepsis: PLAN: As per intensive care. (6) Acidosis, lactic: PLAN: As per intensive care. (7) Acute kidney injury: PLAN: Nephrology input appreciated. 10/12/24 1042 <Electronically signed by Prateek Smith MD> Cosigner Signature (if applicable): CC: ~ Signed [facility] Work Phone: [phone] Consult note Author Cy Arnett [facility] Note Date/Time October 11, 2024 12:1 3pm [facility] Medical Records Department [address] [place] [address] Consultation - Nephrology 10/11/24 1309 MR#: [id number] Acct: [id number] Name: YONY VEGA Rep #:[id number] : 1955 68 From: Cy ravi MD PCP: Dr. Kendy Modi MD Status:ADM IN Location: ICU ICU10-1 Assessment & Plan Assessment/Plan (1) Acute kidney injury: PLAN: Baseline creatinine around 0.6-0.7. Increased to 2.[address] abdomen without any hydronephrosis. Urine analysis suggestive of UTI. He did receive a CT PE protocol study yesterday He did receive IV Lasix Overnight hypotensive, lactic acidosis Likely ATN due to one of the above. Nonoliguric. Potassium is okay. No acute indications for renal replacement therapy. Continue supportive therapy. Eventually need coronary angiogram. Medication list reviewed. I will place a hold on CHF medications for now in view of acute renal failure. SGLT2 inhibitors are not ideal for him given history of suprapubic catheter and risk for infections. HPI Consult Data Date of Consult: 10/11/24 HPI Narrative Reason for Consultation: Acute renal failure HPI Narrative: YONY VEGA, is a 68 M who presents to the hospital with shortness of breath. Nephrology on consultation in view of acute renal failure. Ongoing events include Hypoxic respiratory failure, CT PE negative for PE, pulmonary edema pattern. Was on IV Lasix drip overnight. Non-ST elevation [place] with elevated troponins. Echocardiogram with low ejection fraction, grade 3 diastolic dysfunction History of suprapubic catheter. Apparently this was being changed every 4 weeks, recently changed every 6 weeks. Suspicion for UTI/sepsis. Urology on consult UTI/pyelonephritis. Currently on ceftriaxone Acute renal failure. Baseline creatinine 0.6-0.7. Creatinine increased significantly today. Nonoliguric. Lactic acidosis. Presumably sepsis related. Diuretics are on hold, fluid resuscitation as per ICU [facility] Medical History Ileostomy present Colostomy in place Orthostatic hypotension Essential hypertension Loss of hearing Wears glasses Cancer Depression Insulin dependent diabetes mellitus Walker as ambulation aid Arthritis High cholesterol Restless legs Injury of back Injury of head and neck Syncope Dietary restriction Gastric reflux Non-smoker CPAP (continuous positive airway pressure) dependence Shortness of breath on exertion Leg cramps History of pain when walking History of echocardiogram History of stress test Cardiology follow-up encounter History of heart attack Colorectal cancer Dysphagia invasive rectal adenocarcinoma Diabetic neuropathy Restrictive lung disease Type 2 diabetes mellitus Anxiety disorder GERD (gastroesophageal reflux disease) Carotid artery disease Obstructive sleep apnea 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 Peripheral vascular occlusive disease CVA (cerebral vascular accident) ALEJANDRO (obstructive sleep apnea) Dyslipidemia HTN (hypertension) Home Medications ?Medication ?Instructions ?Recorded ?Last Taken ?Type aspirin 81 mg chewable tablet 81 mg PO DAILY heart hea lth 03/20/16 03/10/23 History insulin lispro 100 unit/mL 1 sliding scale dose subcut TIDCM 09/26/21 03/10/23 History subcutaneous pen (Humalog KwikPen diabetes (U-100) Insulin) duloxetine 60 mg capsule,delayed 30 mg (1/2 x 60 mg) P O DAILY 03/12/23 03/10/23 Rx release depression #30 caps clopidogrel 75 mg tablet 75 mg PO DAILY blood thinner #90 10/10/23 Unknown Rx tabs pantoprazole 40 mg tablet,delayed 40 mg PO DAILY GERD 12/01/23 Unknown History release sodium chloride 0.9 % 100 ea IV .continuous fluid 12/02/23 Unknown History imbalance amlodipine 10 mg tablet 10 mg PO DAILY BLOOD PRESSUR E 01/31/24 Unknown History calcium carbonate (Tums) 300 mg PO TID PRN dyspepsia 01/31/24 Unknown History melatonin 3 mg tablet 3 mg PO QHS 01/31/24 Unknown History simethicone 125 mg chewable tablet 125 mg PO 4X/DAY VT N abdominal 01/31/24 Unknown History distention sodium chloride 0.65 % nasal spray 2 spray intranasal Q4H PRN dry 01/31/24 Unknown History aerosol (Tennga Saline) nasal passages tamsulosin 0.4 mg capsule (Flomax) 0.8 mg PO QHS 01/30 Unknown History carvedilol 6.25 mg tablet 6.25 mg PO BID #0 tabs 02/08 Unknown Rx acetaminophen 325 mg capsule 650 mg PO Q6H PRN pain Unknown History atorvastatin 20 mg tablet 20 mg PO QDAY 05/21/24 Unkno wn History insulin glargine-yfgn 100 unit/mL 50 unit subcut BID 1 Unknown History (3 mL) subcutaneous pen (Semglee (insulin glargine-yfgn) Pen) gabapentin 300 mg capsule 300 mg PO DAILY 08/25/24 Unk nown History metformin 500 mg tablet,extended 500 mg PO BID 5 Unknown History release 24 hr potassium chloride 20 mEq 20 meq PO DAILY 08/25/24 Unk nown History tablet,extended release(part/cryst) (Klor-Con M) Allergy/AdvReac Type Severity Reaction Status Date / Time No Known Allergies Allergy Verified 10/10/24 01:30 Family History Father CAD (coronary artery disease) Hypertension Cancer leukemia Diabetes Heart disease High cholesterol Mother CVA (cerebral vascular accident) Diabetes Breast cancer Brother Diabetes Surgical History History of bilateral cataract extraction History of left heart catheterization (LHC) (~01/22/15) History of right and left heart catheterization (LHC) (~12/25/14) History of eye surgery PTCA Left Anterior Tibial and Paroneal Artery History of coronary artery stent placement (01/02/15) H/O coronary artery bypass surgery (05/30/08) History of right-sided carotid endarterectomy Excision Max.Zygoma Face Tumor History of tonsillectomy History of herniorrhaphy Social History (Updated 10/10/24 @ 03:[address] Kendra Yuan MD) household members: spouse Smoking Status: Never smoker alcohol intake: never substance use type: does not use caffeine: Yes what type of physical activity do you participate in: none ROS ROS Narrative Negative except above Physical Exam Narrative Alert awake oriented x 3 no obvious distress no pallor no icterus no JVD s1s2 no murmurs lungs clear abdomen soft no organomegaly no edema no cyanosis Suprapubic Lab / Micro Data 10/11/24 02:00 10/11/24 02:00 Labs: Laboratory Results - last 24 hr 10/10/24 16:03: POC Glucose 223 H 10/10/24 18:33: APTT 98.3 H* 10/10/24 20:29: POC Glucose 174 H 10/11/24 02:00: WBC 7.5, RBC 3.08 L, Hgb 8.9 L, Hct 27.3 L, MCV 88.6, MCH 28.9, MCHC 32.6, RDW Std Deviation 48.5 H, RDW Coeff of Maia 15.0 H, Plt Count 210, MPV10.2, Immature Gran % (Auto) 0.400, Neut % (Auto) 75.6 H, Lymph % (Auto) 10.4 L,Ford % (Auto) 13.3 H, Eos % (Auto) 0.0, Baso % (Auto) 0.3, Absolute Neuts (auto)5.7, Absolute Lymphs (auto) 0.78 L, Nucleated RBC % 0, APTT 64.6 H, Sodium 139, Potassium 4.2, Chloride 101, Carbon Dioxide 21.8, Anion Gap 17 H, BUN 35 H, Creatinine 2.11 H, Estim Creat Clear Calc 32.20 L, Est GFR (MDRD) Non-Af 34 L, BUN/Creatinine Ratio 16.6, Glucose 167 H, Calcium 7.4 L, Magnesium 1.5, Total Bilirubin 0.42, AST 263 H, ALT 145 H, Alkaline Phosphatase 72, Total Protein 6.2, Albumin 3.3 L, Globulin 3.0, Albumin/Globulin Ratio 1.1, Triglycerides 101,Cholesterol 94, LDL Cholesterol, Calc 43, VLDL Cholesterol 20, HDL Cholesterol 31 L, Cholesterol/HDL Ratio 3.00 10/11/24 08:18: APTT 72.6 H 10/11/24 10:33: POC Glucose 180 H Micro: Microbiology 10/10/24 03:18 Urine Catheter - Mackenzie Urine Culture - 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 lactose microfilm clerk Rhythm Strip Rhythm Strip: Sinus Tach 10/11/24 1313 <Electronically signed by Cy Arnett MD> Cosigner Signature (if applicable): CC: Dr. Kendy Modi MD~ Signed [facility] Work Phone: [phone] Consult note Author Armando Ritchie [facility] Note Date/Time October 11, 2024 10:5 6am [facility] Medical Records Department [address] [place] [address] Consultation - Urology 10/11/24 1155 MR#: [id number] Acct: [id number] Name: YONY VEGA Rep #:[id number] : 1955 68 From: Armando Ritchie MD PCP: Dr. Kendy Modi MD Status:ADM IN Location: ICU ICU10-1 HPI Consult Data Date of Consult: 10/11/24 HPI Narrative Reason for Consultation: UTI and suprapubic catheter HPI Narrative: YONY VEGA, is a 68 M who presents to the hospital with a urinary tract infection, he has a history of retention of urine was found to have a nonfunctioning bladder so he was offered a suprapubic catheter as management option for his bladder this was placed by an outside urologist. The catheter suprapubic was initially placed in July has been changed once. He came backin the hospital with UTI. Today I was able to change the suprapubic catheter toa new 18 Tristanian suprapubic catheter was placed today. He can follow-up with hisurologist after discharge. Nurses are able to flush the catheter if necessary. [facility] Medical History Ileostomy present Colostomy in place Orthostatic hypotension Essential hypertension Loss of hearing Wears glasses Cancer Depression Insulin dependent diabetes mellitus Walker as ambulation aid Arthritis High cholesterol Restless legs Injury of back Injury of head and neck Syncope Dietary restriction Gastric reflux Non-smoker CPAP (continuous positive airway pressure) dependence Shortness of breath on exertion Leg cramps History of pain when walking History of echocardiogram History of stress test Cardiology follow-up encounter History of heart attack Colorectal cancer Dysphagia invasive rectal adenocarcinoma Diabetic neuropathy Restrictive lung disease Type 2 diabetes mellitus Anxiety disorder GERD (gastroesophageal reflux disease) Carotid artery disease Obstructive sleep apnea 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 Peripheral vascular occlusive disease CVA (cerebral vascular accident) ALEJANDRO (obstructive sleep apnea) Dyslipidemia HTN (hypertension) Home Medications ?Medication ?Instructions ?Recorded ?Last Taken ?Type aspirin 81 mg chewable tablet 81 mg PO DAILY heart hea lth 03/20/16 03/10/23 History insulin lispro 100 unit/mL 1 sliding scale dose subcut TIDCM 09/26/21 03/10/23 History subcutaneous pen (Humalog KwikPen diabetes (U-100) Insulin) duloxetine 60 mg capsule,delayed 30 mg (1/2 x 60 mg) P O DAILY 03/12/23 03/10/23 Rx release depression #30 caps clopidogrel 75 mg tablet 75 mg PO DAILY blood thinner #90 10/10/23 Unknown Rx tabs pantoprazole 40 mg tablet,delayed 40 mg PO DAILY GERD 12/01/23 Unknown History release sodium chloride 0.9 % 100 ea IV .continuous fluid 12/02/23 Unknown History imbalance amlodipine 10 mg tablet 10 mg PO DAILY BLOOD PRESSUR E 01/31/24 Unknown History calcium carbonate (Tums) 300 mg PO TID PRN dyspepsia 01/31/24 Unknown History melatonin 3 mg tablet 3 mg PO QHS 01/31/24 Unknown History simethicone 125 mg chewable tablet 125 mg PO 4X/DAY VT N abdominal 01/31/24 Unknown History distention sodium chloride 0.65 % nasal spray 2 spray intranasal Q4H PRN dry 01/31/24 Unknown History aerosol (Tennga Saline) nasal passages tamsulosin 0.4 mg capsule (Flomax) 0.8 mg PO QHS 01/30 Unknown History carvedilol 6.25 mg tablet 6.25 mg PO BID #0 tabs 02/08 Unknown Rx acetaminophen 325 mg capsule 650 mg PO Q6H PRN pain Unknown History atorvastatin 20 mg tablet 20 mg PO QDAY 05/21/24 Unkno wn History insulin glargine-yfgn 100 unit/mL 50 unit subcut BID 1 Unknown History (3 mL) subcutaneous pen (Semglee (insulin glargine-yfgn) Pen) gabapentin 300 mg capsule 300 mg PO DAILY 08/25/24 Unk nown History metformin 500 mg tablet,extended 500 mg PO BID 01/19/2 5 Unknown History release 24 hr potassium chloride 20 mEq 20 meq PO DAILY 08/25/24 Unk nown History tablet,extended release(part/cryst) (Klor-Con M) Allergy/AdvReac Type Severity Reaction Status Date / Time No Known Allergies Allergy Verified 10/10/24 01:30 Family History Father CAD (coronary artery disease) Hypertension Cancer leukemia Diabetes Heart disease High cholesterol Mother CVA (cerebral vascular accident) Diabetes Breast cancer Brother Diabetes Surgical History History of bilateral cataract extraction History of left heart catheterization (LHC) (~01/22/15) History of right and left heart catheterization (LHC) (~12/25/14) History of eye surgery PTCA Left Anterior Tibial and Paroneal Artery History of coronary artery stent placement (01/02/15) H/O coronary artery bypass surgery (05/30/08) History of right-sided carotid endarterectomy Excision Max.Zygoma Face Tumor History of tonsillectomy History of herniorrhaphy Social History (Updated 10/10/24 @ 03:[address] Kendra Yuan MD) household members: spouse Smoking Status: Never smoker alcohol intake: never substance use type: does not use caffeine: Yes what type of physical activity do you participate in: none Lab / Micro Data 10/11/24 02:00 10/11/24 02:00 Labs: Laboratory Results - last 24 hr 10/10/24 16:03: POC Glucose 223 H 10/10/24 18:33: APTT 98.3 H* 10/10/24 20:29: POC Glucose 174 H 10/11/24 02:00: WBC 7.5, RBC 3.08 L, Hgb 8.9 L, Hct 27.3 L, MCV 88.6, MCH 28.9, MCHC 32.6, RDW Std Deviation 48.5 H, RDW Coeff of Maia 15.0 H, Plt Count 210, MPV10.2, Immature Gran % (Auto) 0.400, Neut % (Auto) 75.6 H, Lymph % (Auto) 10.4 L,Ford % (Auto) 13.3 H, Eos % (Auto) 0.0, Baso % (Auto) 0.3, Absolute Neuts (auto)5.7, Absolute Lymphs (auto) 0.78 L, Nucleated RBC % 0, APTT 64.6 H, Sodium 139, Potassium 4.2, Chloride 101, Carbon Dioxide 21.8, Anion Gap 17 H, BUN 35 H, Creatinine 2.11 H, Estim Creat Clear Calc 32.20 L, Est GFR (MDRD) Non-Af 34 L, BUN/Creatinine Ratio 16.6, Glucose 167 H, Calcium 7.4 L, Magnesium 1.5, Total Bilirubin 0.42, AST 263 H, ALT 145 H, Alkaline Phosphatase 72, Total Protein 6.2, Albumin 3.3 L, Globulin 3.0, Albumin/Globulin Ratio 1.1, Triglycerides 101,Cholesterol 94, LDL Cholesterol, Calc 43, VLDL Cholesterol 20, HDL Cholesterol 31 L, Cholesterol/HDL Ratio 3.00 10/11/24 08:18: APTT 72.6 H 10/11/24 10:33: POC Glucose 180 H Micro: Microbiology 10/10/24 03:18 Urine Catheter - Mackenzie Urine Culture - 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 lactose microfilm clerk Rhythm Strip Rhythm Strip: Sinus Tach 10/11/24 1156 <Electronically signed by Armando Ritchie MD> Cosigner Signature (if applicable): CC: Dr. Kendy Modi MD~ Signed [facility] Work Phone: [phone] Progress note Author Reagan Fatima [facility] Note Date/Time October 11, 2024 10:4 7am [facility] Medical Records Department [address] [place] [id number] Progress Note - Linen Room Supervisor 10/11/24 1140 MR#: [id number] Acct: [id number] Name: YONY VEGA Rep #:[id number] : 1955 68 From: Reagan Fatima DO PCP: Dr. Kendy Modi MD Status:ADM IN Location: ICU ICU10-1 Assessment & Plan Assessment/Plan (1) Combined systolic and diastolic congestive heart failure: (2) Acute kidney injury: (3) Non-ST elevated myocardial infarction (non-STEMI): (4) Acute respiratory failure with hypoxia: (5) Sepsis: PLAN: Plan RECOMMENDATIONS: 1. Wean supplemental oxygen to maintain saturations at or above 90%. 2. Antimicrobials per ID recommendations. 3. Continue heparin infusion. 4. PAP therapy with naps and nightly. 5. Timing for cardiac catheterization per cardiology. 6. Will sign off from a critical care perspective. Please call with any additional questions. IMPRESSIONS: 1. Sepsis The patient presented to the hospital with sepsis due to suspected UTI with acute sepsis related organ dysfunction as evidenced by lactic acidemia and respiratory failure requiring noninvasive positive pressure ventilatory support. The patient remains hemodynamically stable. He will be continued on antimicrobial therapy per ID recommendations. 2. Acute respiratory failure with hypoxemia Most likely secondary to underlying congestive heart failure, as opposed to an occult infectious process. Unfortunately, the patient was aggressively diuresedover the last 24 hours, leading to an increase in creatinine. Nevertheless, thepatient's respiratory status has improved. Plan to continue to wean supplemental oxygen to maintain saturations at or above 90%. Encourage incentive spirometer use and mobilize patient as tolerated. 3. NSTEMI/acute decompensated heart failure Continue current medical management per cardiology recommendations. 4. History of coronary artery disease/history of CVA/diabetes mellitus/obstructive sleep apnea/peripheral arterial disease Complicates care, management, recovery and prognosis. Continue home medicationsas indicated. Recommend continuing PAP therapy nightly per home regimen. CODE STATUS: DNR CCA without intubation This note was generated with [employer] dictation software. It may contain incorrectwords, spelling, and punctuation that were not noted in checking the note beforesigning. Subjective Subjective The patient was seen and examined at the bedside this morning. Events from the last 24 hours have been reviewed. The patient is currently afebrile, hemodynamically stable and maintaining appropriate oxygen saturations on 6 L/minvia nasal cannula. The patient remains on ceftriaxone. White blood cell count is normal. Hemoglobin is dropped to 8.9 g/dL. Creatinine has increased to 2.1. Cardiology had maintained the patient on a Lasix infusion over the last 24 hours, which was ultimately discontinued due to the increasing creatinine. Although they were planning to potentially perform a cardiac catheterization, inlight of his increased creatinine, that plan has been placed on hold. Objective Data Objective Data The patient's most recent lab work, culture data and imaging studies have all been personally reviewed. Surface echocardiogram demonstrated severe LV segmental wall motion with an ejection fraction of 35 to 40% and stage III diastolic dysfunction. Preliminary urine culture is demonstrating growth of a gram-negative moncho, lactose microfilm clerk. Vital Signs: Vital Signs Temp Pulse Resp BP Pulse Ox O2 Del Method O2 Flow Rate 98.0 F 78 13 108/63 91 Nasal Cannula 6 10/11/24 10:20 10/11/24 10:20 10/11/24 10:20 10/11/24 10:20 10/11/24 10:39 10/11/24 10:39 10/11/24 10:39 FiO2 40 10/11/24 05:00 Oxygen Flow Rate (L/min) 6 Oxygen Delivery Method Nasal Cannula Weight: 143 lb 8.335 oz Body Mass Index (BMI) 22.4 Intake & Output: Intake and Output for Last 24 Hours 10/09/24 10/10/24 10/11/24 23:59 23:59 23:59 Intake Total 2069.17 / 2069.17 385.27 / 385.27 Output Total 1650 / 1650 450 / 450 Balance 419.17 / 419.17 -64.73 / -64.73 Lab / Micro Data Attestation: I reviewed the patient's lab results. 10/11/24 02:00 10/11/24 02:00 Labs: Laboratory Results - last 24 hr 10/10/24 16:03: POC Glucose 223 H 10/10/24 18:33: APTT 98.3 H* 10/10/24 20:29: POC Glucose 174 H 10/11/24 02:00: WBC 7.5, RBC 3.08 L, Hgb 8.9 L, Hct 27.3 L, MCV 88.6, MCH 28.9, MCHC 32.6, RDW Std Deviation 48.5 H, RDW Coeff of Maia 15.0 H, Plt Count 210, MPV10.2, Immature Gran % (Auto) 0.400, Neut % (Auto) 75.6 H, Lymph % (Auto) 10.4 L,Ford % (Auto) 13.3 H, Eos % (Auto) 0.0, Baso % (Auto) 0.3, Absolute Neuts (auto)5.7, Absolute Lymphs (auto) 0.78 L, Nucleated RBC % 0, APTT 64.6 H, Sodium 139, Potassium 4.2, Chloride 101, Carbon Dioxide 21.8, Anion Gap 17 H, BUN 35 H, Creatinine 2.11 H, Estim Creat Clear Calc 32.20 L, Est GFR (MDRD) Non-Af 34 L, BUN/Creatinine Ratio 16.6, Glucose 167 H, Calcium 7.4 L, Magnesium 1.5, Total Bilirubin 0.42, AST 263 H, ALT 145 H, Alkaline Phosphatase 72, Total Protein 6.2, Albumin 3.3 L, Globulin 3.0, Albumin/Globulin Ratio 1.1, Triglycerides 101,Cholesterol 94, LDL Cholesterol, Calc 43, VLDL Cholesterol 20, HDL Cholesterol 31 L, Cholesterol/HDL Ratio 3.00 10/11/24 08:18: APTT 72.6 H 10/11/24 10:33: POC Glucose 180 H Micro: Microbiology 10/10/24 03:18 Urine Catheter - Mackenzie Urine Culture - 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 lactose microfilm clerk 10/10/24 03:05 Mucosa - Nasopharyngeal Respiratory Panel (PCR) - Final 10/10/24 03:18 Urine Catheter - Catheter Streptococcus pneumoniae Antigen (M- Final 10/10/24 03:18 Urine Catheter - Mackenzie Legionella Antigen - Final 10/10/24 01:40 Mucosa - Nose SARS-CoV-2, Influenza & RSV (PCR) - Final Rhythm Strip Rhythm Strip: Sinus Tach Physical Exam Const alert and no apparent distress General Appearance: cooperative HEENT normocephalic and head/scalp atraumatic Eyes PERRL, EOMs intact bilaterally and conjunctivae normal Neck supple General: trachea midline Chest inspection of chest normal Resp Auscultation: diminished lung sounds; Negative for rales, rhonchi or wheezes Cardio regular rate and regular rhythm GI normal to inspection, nondistended, normoactive bowel sounds Inspection: ostomy present Extremity no clubbing, cyanosis or edema Skin no rashes or lesions noted Neuro CN's II-XII intact bilaterally, moves all extremities and no focal motor deficits Psych Mood & Affect: flat affect Charges/Coding Visit Charges Inpatient E&M: 68484 Subs Hosp L2 10/11/24 1147 <Electronically signed by Reagan Fatima DO> Cosigner Signature (if applicable): CC: ~ Signed [facility] Work Phone: [phone] Progress note Author Prateek Smith [facility] Note Date/Time October 11, 2024 10:4 5am [facility] Medical Records Department [address] [place] [address] Progress Note - Cardiology 10/11/24 1142 MR#: [id number] Acct: [id number] Name: YONY VEGA Rep #:[id number] : 1955 68 From: Prateek Smith MD PCP: Dr. Kendy Modi MD Status:ADM IN Location: ICU ICU10-1 Subjective Subjective Denies any complaints. Objective Data Vital Signs: Vital Signs Temp Pulse Resp BP Pulse Ox O2 Del Method O2 Flow Rate 98.0 F 78 13 108/63 91 Nasal Cannula 6 10/11/24 10:20 10/11/24 10:20 10/11/24 10:20 10/11/24 10:20 10/11/24 10:39 10/11/24 10:39 10/11/24 10:39 FiO2 40 10/11/24 05:00 Oxygen Flow Rate (L/min) 6 Oxygen Delivery Method Nasal Cannula Weight: 143 lb 8.335 oz Body Mass Index (BMI) 22.4 Intake & Output: Intake and Output for Last 24 Hours 10/09/24 10/10/24 10/11/24 23:59 23:59 23:59 Intake Total 2069.17 / 2069.17 385.27 / 385.27 Output Total 1650 / 1650 450 / 450 Balance 419.17 / 419.17 -64.73 / -64.73 Lab / Micro Data 10/11/24 02:00 10/11/24 02:00 Labs: Laboratory Results - last 24 hr 10/10/24 16:03: POC Glucose 223 H 10/10/24 18:33: APTT 98.3 H* 10/10/24 20:29: POC Glucose 174 H 10/11/24 02:00: WBC 7.5, RBC 3.08 L, Hgb 8.9 L, Hct 27.3 L, MCV 88.6, MCH 28.9, MCHC 32.6, RDW Std Deviation 48.5 H, RDW Coeff of Maia 15.0 H, Plt Count 210, MPV10.2, Immature Gran % (Auto) 0.400, Neut % (Auto) 75.6 H, Lymph % (Auto) 10.4 L,Ford % (Auto) 13.3 H, Eos % (Auto) 0.0, Baso % (Auto) 0.3, Absolute Neuts (auto)5.7, Absolute Lymphs (auto) 0.78 L, Nucleated RBC % 0, APTT 64.6 H, Sodium 139, Potassium 4.2, Chloride 101, Carbon Dioxide 21.8, Anion Gap 17 H, BUN 35 H, Creatinine 2.11 H, Estim Creat Clear Calc 32.20 L, Est GFR (MDRD) Non-Af 34 L, BUN/Creatinine Ratio 16.6, Glucose 167 H, Calcium 7.4 L, Magnesium 1.5, Total Bilirubin 0.42, AST 263 H, ALT 145 H, Alkaline Phosphatase 72, Total Protein 6.2, Albumin 3.3 L, Globulin 3.0, Albumin/Globulin Ratio 1.1, Triglycerides 101,Cholesterol 94, LDL Cholesterol, Calc 43, VLDL Cholesterol 20, HDL Cholesterol 31 L, Cholesterol/HDL Ratio 3.00 10/11/24 08:18: APTT 72.6 H 10/11/24 10:33: POC Glucose 180 H Micro: Microbiology 10/10/24 03:18 Urine Catheter - Mackenzie Urine Culture - 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 lactose microfilm clerk Rhythm Strip Rhythm Strip: Sinus Tach Cardiology Labs/Tests 10/10/24 18:33: APTT 98.3 H* 10/11/24 02:00: WBC 7.5, RBC 3.08 L, Hgb 8.9 L, Hct 27.3 L, MCV 88.6, MCH 28.9, MCHC 32.6, Plt Count 210, MPV 10.2, Immature Gran % (Auto) 0.400, Neut % (Auto) 75.6 H, Lymph % (Auto) 10.4 L, Ford % (Auto) 13.3 H, Eos % (Auto) 0.0, Baso % (Auto) 0.3, Absolute Neuts (auto) 5.7, Nucleated RBC % 0, APTT 64.6 H, Sodium 139, Potassium 4.2, Chloride 101, Carbon Dioxide 21.8, Anion Gap 17 H, BUN 35 H,Creatinine 2.11 H, Est GFR (MDRD) Non-Af 34 L, BUN/Creatinine Ratio 16.6, Glucose 167 H, Calcium 7.4 L, Magnesium 1.5, Total Bilirubin 0.42, Triglycerides 101, Cholesterol 94, VLDL Cholesterol 20, HDL Cholesterol 31 L, Cholesterol/HDL Ratio 3.00 10/11/24 08:18: APTT 72.6 H Rhythm: EKG: ECHO: Stress Test: Cardiac Cath: PCI: CT Surgery: Holter monitor: EPS: PPM: CXR: Chest CT Scan: Physical Exam Narrative Lying flat in bed. No apparent distress. Comfortable. Heart sounds 1 and 2 noted. Chest with decreased breath sounds at bilateral bases. No ankle edema. Assessment & Plan Assessment/Plan (1) Non-ST elevated myocardial infarction (non-STEMI): PLAN: Stable. Continue medical management for now. Aspirin, clopidogrel. Beta-blockers. DC heparin infusion. Coronary angiography when his other medical issues resolved and creatinine stable. (2) Coronary artery disease: PLAN: See #1 above. (3) Combined systolic and diastolic congestive heart failure: PLAN: Received furosemide infusion over the last 24 hours. Appears dry today. Creatinine also up. DC furosemide. Hydrate gently. (4) UTI (urinary tract infection): PLAN: On antibiotics. (5) Sepsis: PLAN: As per intensive care. (6) Acidosis, lactic: PLAN: As per intensive care. (7) Acute kidney injury: PLAN: Hydrate gently. Monitor. 10/11/24 1145 <Electronically signed by Prateek Smith MD> Cosigner Signature (if applicable): CC: ~ Signed [facility] Work Phone: [phone] Consult note Author Chris Alfaroninger [facility] Note Date/Time October 11, 2024 9:21 am [facility] Medical Records Department [address] [place] [address] Consultation - Infectious Dx 10/11/24 1018 MR#: [id number] Acct: [id number] Name: YONY VEGA Rep #:[id number] : 1955 68 From: Chris kumar MD PCP: Dr. Kendy Modi MD Status:ADM IN Location: ICU ICU10-1 Assessment & Plan Assessment/Plan (1) Combined systolic and diastolic congestive heart failure: (2) Acute kidney injury: (3) UTI (urinary tract infection): PLAN: Ucx pending, will cover with ceftriaxone. Recent ucx with klebs. Will follow, thank you HPI Consult Data Date of Consult: 10/11/24 HPI Narrative Reason for Consultation: uti HPI Narrative: YONY VEGA, is a 68 M with h/o CHF, suprapubic catheter, DM, rectal cancer with ostomy, presented 3/6 with 4 hours of confusion, headache, nausea, difficulty speaking. Came to ED, admitted to icu on vanc/zosyn, now with MADELEINE. Mental status improved per . Full ROS performed and neg except as noted above. [facility] Medical History Ileostomy present Colostomy in place Orthostatic hypotension Essential hypertension Loss of hearing Wears glasses Cancer Depression Insulin dependent diabetes mellitus Walker as ambulation aid Arthritis High cholesterol Restless legs Injury of back Injury of head and neck Syncope Dietary restriction Gastric reflux Non-smoker CPAP (continuous positive airway pressure) dependence Shortness of breath on exertion Leg cramps History of pain when walking History of echocardiogram History of stress test Cardiology follow-up encounter History of heart attack Colorectal cancer Dysphagia invasive rectal adenocarcinoma Diabetic neuropathy Restrictive lung disease Type 2 diabetes mellitus Anxiety disorder GERD (gastroesophageal reflux disease) Carotid artery disease Obstructive sleep apnea 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 Peripheral vascular occlusive disease CVA (cerebral vascular accident) ALEJANDRO (obstructive sleep apnea) Dyslipidemia HTN (hypertension) Home Medications ?Medication ?Instructions ?Recorded ?Last Taken ?Type aspirin 81 mg chewable tablet 81 mg PO DAILY heart hea lth 03/20/16 03/10/23 History insulin lispro 100 unit/mL 1 sliding scale dose subcut TIDCM 09/26/21 03/10/23 History subcutaneous pen (Humalog KwikPen diabetes (U-100) Insulin) duloxetine 60 mg capsule,delayed 30 mg (1/2 x 60 mg) P O DAILY 03/12/23 03/10/23 Rx release depression #30 caps clopidogrel 75 mg tablet 75 mg PO DAILY blood thinner #90 10/10/23 Unknown Rx tabs pantoprazole 40 mg tablet,delayed 40 mg PO DAILY GERD 12/01/23 Unknown History release sodium chloride 0.9 % 100 ea IV .continuous fluid 12/02/23 Unknown History imbalance amlodipine 10 mg tablet 10 mg PO DAILY BLOOD PRESSUR E 01/31/24 Unknown History calcium carbonate (Tums) 300 mg PO TID PRN dyspepsia 01/31/24 Unknown History melatonin 3 mg tablet 3 mg PO QHS 01/31/24 Unknown History simethicone 125 mg chewable tablet 125 mg PO 4X/DAY VT N abdominal 01/31/24 Unknown History distention sodium chloride 0.65 % nasal spray 2 spray intranasal Q4H PRN dry 01/31/24 Unknown History aerosol (Tennga Saline) nasal passages tamsulosin 0.4 mg capsule (Flomax) 0.8 mg PO QHS 01/30 Unknown History carvedilol 6.25 mg tablet 6.25 mg PO BID #0 tabs 02/08 Unknown Rx acetaminophen 325 mg capsule 650 mg PO Q6H PRN pain Unknown History atorvastatin 20 mg tablet 20 mg PO QDAY 05/21/24 Unkno wn History insulin glargine-yfgn 100 unit/mL 50 unit subcut BID 1 Unknown History (3 mL) subcutaneous pen (Semglee (insulin glargine-yfgn) Pen) gabapentin 300 mg capsule 300 mg PO DAILY 08/25/24 Unk nown History metformin 500 mg tablet,extended 500 mg PO BID 5 Unknown History release 24 hr potassium chloride 20 mEq 20 meq PO DAILY 08/25/24 Unk nown History tablet,extended release(part/cryst) (Klor-Con M) Allergy/AdvReac Type Severity Reaction Status Date / Time No Known Allergies Allergy Verified 10/10/24 01:30 Family History Father CAD (coronary artery disease) Hypertension Cancer leukemia Diabetes Heart disease High cholesterol Mother CVA (cerebral vascular accident) Diabetes Breast cancer Brother Diabetes Surgical History History of bilateral cataract extraction History of left heart catheterization (LHC) (~01/22/15) History of right and left heart catheterization (LHC) (~12/25/14) History of eye surgery PTCA Left Anterior Tibial and Paroneal Artery History of coronary artery stent placement (01/02/15) H/O coronary artery bypass surgery (05/30/08) History of right-sided carotid endarterectomy Excision Max.Zygoma Face Tumor History of tonsillectomy History of herniorrhaphy Social History (Updated 10/10/24 @ 03:[address] Kendra Yuan MD) household members: spouse Smoking Status: Never smoker alcohol intake: never substance use type: does not use caffeine: Yes what type of physical activity do you participate in: none Physical Exam Const no apparent distress General Appearance: cooperative and lethargic HEENT normocephalic and head/scalp atraumatic Eyes PERRL and EOMs intact bilaterally Neck supple and No nodes Resp normal air movement and clear to auscultation bilaterally Cardio regular rate and regular rhythm GI soft to palpation and non-distended GI Narrative: mild lower abd tenderness Extremity General Extremity: Negative for edema Skin no rashes or lesions noted Neuro CN's II-XII intact bilaterally Lab / Micro Data Attestation: I reviewed the patient's lab results. 10/11/24 02:00 10/11/24 02:00 Labs: Laboratory Results - last 24 hr 10/10/24 10:05: APTT 190.0 H* 10/10/24 16:03: POC Glucose 223 H 10/10/24 18:33: APTT 98.3 H* 10/10/24 20:29: POC Glucose 174 H 10/11/24 02:00: WBC 7.5, RBC 3.08 L, Hgb 8.9 L, Hct 27.3 L, MCV 88.6, MCH 28.9, MCHC 32.6, RDW Std Deviation 48.5 H, RDW Coeff of Maia 15.0 H, Plt Count 210, MPV10.2, Immature Gran % (Auto) 0.400, Neut % (Auto) 75.6 H, Lymph % (Auto) 10.4 L,Ford % (Auto) 13.3 H, Eos % (Auto) 0.0, Baso % (Auto) 0.3, Absolute Neuts (auto)5.7, Absolute Lymphs (auto) 0.78 L, Nucleated RBC % 0, APTT 64.6 H, Sodium 139, Potassium 4.2, Chloride 101, Carbon Dioxide 21.8, Anion Gap 17 H, BUN 35 H, Creatinine 2.11 H, Estim Creat Clear Calc 32.20 L, Est GFR (MDRD) Non-Af 34 L, BUN/Creatinine Ratio 16.6, Glucose 167 H, Calcium 7.4 L, Magnesium 1.5, Total Bilirubin 0.42, AST 263 H, ALT 145 H, Alkaline Phosphatase 72, Total Protein 6.2, Albumin 3.3 L, Globulin 3.0, Albumin/Globulin Ratio 1.1, Triglycerides 101,Cholesterol 94, LDL Cholesterol, Calc 43, VLDL Cholesterol 20, HDL Cholesterol 31 L, Cholesterol/HDL Ratio 3.00 10/11/24 08:18: APTT 72.6 H Micro: Microbiology 10/10/24 03:05 Mucosa - Nasopharyngeal Respiratory Panel (PCR) - Final 10/10/24 03:18 Urine Catheter - Catheter Streptococcus pneumoniae Antigen (M- Final 10/10/24 03:18 Urine Catheter - Mackenzie Legionella Antigen - Final Rhythm Strip Rhythm Strip: Sinus Tach Imaging Radiology Impression Echocardiogram 10/10/24 05:23 Interpretation Summary Severe LV segmental wall motion. Basal portions of the lateral wall, inferior wall, anterior wall, inferior and anterior septum are severely hypokinetic to akinetic. Only the apex is bertha well. Estimated LVEF 35 to 40%. Stage III diastolic dysfunction. The left atrium is severely enlarged. The right atrium is mildly enlarged. Moderate (2+) mitral valve insufficiency. Moderate to severe tricuspid valve insufficiency. Right ventricular systolic pressure estimated at 46 mmHg. Moderate to severe aortic valve calcification. Aortic valve sclerosis with no stenosis. Valve area 1.9 cm?? by planimetry. Ordering Physician: Kendra Yuan Referring Physician: Kendy Modi Performed By: Raya Ma, JOSE ELIAS, RVT 10/11/24 1021 <Electronically signed by Chris Collins MD> Cosigner Signature (if applicable): CC: Dr. Kendy Modi MD~ Signed [facility] Work Phone: [phone] Progress note Author Matt Penny [facility] Note Date/Time October 11, 2024 7:51 am [facility] Medical Records Department [address] [place] [address] Progress Note - Hospitalist 10/11/24 0840 MR#: [id number] Acct: [id number] Name: YONY VEGA Rep #:[id number] : 1955 68 From: Matt Simon PCP: Dr. Kendy Modi MD Status:ADM IN Location: ICU ICU10-1 Reason for Visit Reason for Visit: Diagnoses Sepsis, unspecified organism (10/10/24) Acidosis, unspecified (10/10/24) Non-ST elevation (NSTEMI) myocardial infarction (10/10/24) Atherosclerotic heart disease of ambler coronary artery without angina pectoris (10/10/24) Unspecified combined systolic (congestive) and diastolic (congestive) heart failure (10/10/24) Acute respiratory failure with hypoxia (10/10/24) Acute kidney failure, unspecified (10/10/24) Urinary tract infection, site not specified (10/10/24) Objective Data Objective Data Vital Signs: Vital Signs Temp Pulse Resp BP Pulse Ox O2 Del Method O2 Flow Rate 98.5 F 73 21 H 97/59 L 97 Nasal Cannula 8 10/11/24 04:00 10/11/24 07:00 10/11/24 07:00 10/11/24 07:00 10/11/24 07:00 10/11/24 07:00 10/11/24 07:00 FiO2 40 10/11/24 05:00 Oxygen Flow Rate (L/min) 8 Oxygen Delivery Method Nasal Cannula Weight: 143 lb 8.335 oz Body Mass Index (BMI) 22.4 Intake & Output: Intake and Output for Last 24 Hours 10/09/24 10/10/24 10/11/24 23:59 23:59 23:59 Intake Total 2069.17 / 2069.17 282.42 / 282.42 Output Total 1650 / 1650 450 / 450 Balance 419.17 / 419.17 -167.58 / -167.58 Lab / Micro Data 10/11/24 02:00 10/11/24 02:00 Labs: Laboratory Results - last 24 hr 10/10/24 10:05: APTT 190.0 H* 10/10/24 16:03: POC Glucose 223 H 10/10/24 18:33: APTT 98.3 H* 10/10/24 20:29: POC Glucose 174 H 10/11/24 02:00: WBC 7.5, RBC 3.08 L, Hgb 8.9 L, Hct 27.3 L, MCV 88.6, MCH 28.9, MCHC 32.6, RDW Std Deviation 48.5 H, RDW Coeff of Maia 15.0 H, Plt Count 210, MPV10.2, Immature Gran % (Auto) 0.400, Neut % (Auto) 75.6 H, Lymph % (Auto) 10.4 L,Ford % (Auto) 13.3 H, Eos % (Auto) 0.0, Baso % (Auto) 0.3, Absolute Neuts (auto)5.7, Absolute Lymphs (auto) 0.78 L, Nucleated RBC % 0, APTT 64.6 H, Sodium 139, Potassium 4.2, Chloride 101, Carbon Dioxide 21.8, Anion Gap 17 H, BUN 35 H, Creatinine 2.11 H, Estim Creat Clear Calc 32.20 L, Est GFR (MDRD) Non-Af 34 L, BUN/Creatinine Ratio 16.6, Glucose 167 H, Calcium 7.4 L, Magnesium 1.5, Total Bilirubin 0.42, AST 263 H, ALT 145 H, Alkaline Phosphatase 72, Total Protein 6.2, Albumin 3.3 L, Globulin 3.0, Albumin/Globulin Ratio 1.1, Triglycerides 101,Cholesterol 94, LDL Cholesterol, Calc 43, VLDL Cholesterol 20, HDL Cholesterol 31 L, Cholesterol/HDL Ratio 3.00 Micro: Microbiology 10/10/24 03:05 Mucosa - Nasopharyngeal Respiratory Panel (PCR) - Final 10/10/24 03:18 Urine Catheter - Catheter Streptococcus pneumoniae Antigen (M- Final 10/10/24 03:18 Urine Catheter - Mackenzie Legionella Antigen - Final 10/10/24 01:40 Mucosa - Nose SARS-CoV-2, Influenza & RSV (PCR) - Final Radiography Diagnostic Testing: Radiology Impression Echocardiogram 10/10/24 05:23 Interpretation Summary Severe LV segmental wall motion. Basal portions of the lateral wall, inferior wall, anterior wall, inferior and anterior septum are severely hypokinetic to akinetic. Only the apex is bertha well. Estimated LVEF 35 to 40%. Stage III diastolic dysfunction. The left atrium is severely enlarged. The right atrium is mildly enlarged. Moderate (2+) mitral valve insufficiency. Moderate to severe tricuspid valve insufficiency. Right ventricular systolic pressure estimated at 46 mmHg. Moderate to severe aortic valve calcification. Aortic valve sclerosis with no stenosis. Valve area 1.9 cm?? by planimetry. Ordering Physician: Kendra Yuan Referring Physician: Kendy Modi Performed By: Raya Ma, JOSE ELIAS, RVT Rhythm Strip Rhythm Strip: Sinus Tach Physical Exam Narrative Seen and examined. Patient was on BiPAP mask last night. Shortness of breath is better. Currentlyoff BiPAP in the morning. On 8 L of oxygen Physical exam: General: Awake, oriented x 3. HEENT: Atraumatic, EOMI, Normocephalic Oral: On alternate BiPAP and high flow oxygen Neck: Supple, No JVD, Negative Carotid Bruits Chest wall/Lungs: Air entry diminished in bilateral lung bases. Bilateral coarse crepitations Cardiovascular: Sinus rhythm, Normal S1, Normal S2, No M/G/R Abdomen: Bowel Sounds Present, Soft, colostomy and mucosal fistula. Surgical dressing. Dry : Suprapubic catheter. Clear urine on the tube No suprapubic tenderness. Extremities: Mild pedal edema, Capillary Refill Less than 3 Seconds Skin: No rashes, No breakdown Musculoskeletal: No Tenderness to Palpation of Joints or Extremities ROM limited. Muscle power could not be seen Neurological: Confused and disoriented. Detailed neuroexam unobtainable Psych/Mental Status: Flat affect Assessment & Plan Assessment/Plan (1) Sepsis: PLAN: Plan The patient is a 68 y/o M who is being admitted in ICU after patient's family brought to ED for confusion along with low-grade fever and altered mental status. He also had fatigue muscle aches and headache for last 12 hours. #1. Suspected sepsis due to pneumonia/complicated UTI: Patient is being admitted in ICU. The patient presented with suspected sepsis with clinical indicators of tachycardia, tachypnea, hypoxia, mild leukocytosis due to complicated CAUTI (suprapubic catheter) and possible pneumonia with acute sepsis-related organ dysfunction as evidenced by lactic acidosis, drop in SBP from baseline about 147-150 mmHg to 100 -106 mmHg and acute hypoxic respiratory failure requiring BiPAP/Airvo. Patient did not require pressors yet. Chest x-ray CT scan reviewed and shows mainly pulmonary edema with no filling defect to suggest pulmonary embolism. Small bilateral pleural effusion with partial collapse of adjacent lower lobes. Possible infectious process/pneumonia Patient not candidate for sepsis protocol fluid because of pulmonary edema Patient on IV vancomycin and Zosyn. Linen Room Supervisor consulted. Infectious workup ordered. 10/11: Respiratory panel and urinary antigens are negative. Triple PCR for SARS-CoV-2, flu and RSV are negative. Vancomycin and Zosyn discontinued becauseof MADELEINE. ID consulted for further opinion and change of antibiotic. Possible ceftriaxone/fluoroquinolone based on previous cultures 2. Acute hypoxic respiratory failure: Patient was 86% on room air. ABG shows 7.31/40/72 on 85% FiO2 Airvo suggestive of increased AA gradient. Bicarb 22. Anion gap 16 creatinine therefore increased anion gap metabolic acidosis. 3/: Respiratory status is better. Patient looks more calm with less shortness of breath though remains hypoxic #2. Elevated troponin, potential NSTEMI type II most likely demand ischemia: Twelve-lead EKG shows sinus rhythm, mild ST depression V2-V5, T wave inversion. Chest x-ray suggestive of pulmonary edema. Troponins elevated but [place], 409, 407 and 11/12/1976. proBNP hide about 3000. As Patient on IV heparin drip, aspirin and Plavix. Director Of Materials consulted. 2D echo ordered. ECHO noted 05/28/2024 with LVEF 60%, moderate focal MV calcification, bileaflet, mild MVI, mild TBI, moderate diffuse aortic valve calcification with sclerosis without stenosis 10/11: #3. Acute kidney injury on CKD 2: admission BUN/Cr 26/1.39, GFR 56, baseline renal function primarily 0.6-0.7. Hold nephrotoxic 10/05: Marked Jump on creatinine from 1.33-2.11. Hold furosemide drip. DC lisinopril vancomycin and Zosyn discontinued as Zosyn increases creatinine with increased tubular secretion. Production Specialist consulted #4. CAD and peripheral arterial disease and carotid disease status post right CEA and history of stroke/CVA: Status post CABG x 5 with ZUNIGA to LAD and D1, free KIMBERLYN to PDA, SVG to ramus, SVG to OM1 2007 and PCI including [id number] 2014: Continue aspirin, Plavix, statin, Coreg. Patient not on ILDA/ARB because of MADELEINE. Patient also has PAD with PTCA left anterior tibial and peroneal artery. 5. Hypertension: Continue home regimen including amlodipine, Coreg, IV Lasix asable, PRN hydralazine. 6. Hyperlipidemia: Continue home statin regimen. Lipid profile ordered for tomorrow a.m. 7. Diabetes mellitus type II with chronic neuropathy: Accu-Chek before meals and at bedtime with Humalog sliding scale coverage and hypoglycemia protocol. Continue gabapentin 8. Anxiety and depression: On duloxetine 9. Chronic normocytic anemia: Admission hemoglobin 12.4, MCV 88, baseline hemoglobin 10-11 primarily. On beta 10. History colorectal cancer: Patient s/p resection with radiation and chemotherapy in 2020, has colostomy 11. ALEJANDRO: Normally uses CPAP nightly, initially in the ED transitioned to high flow/Airvo, given overload concern transitioned to BIPAP. 12. BPH with obstructive pathology with chronic suprapubic catheter: On Flomax. Suspected UTI, OT 14. GERD: continue patient on PPI. 15DVT prophylaxis: continue heparin drip. . CODE status: Patient healthcare Pap workers compensation defense attorney living will not in place but hiswife who is present would be his medical decision-maker if necessary. Discussed CODE status at length including difference between FULL code, DNR-CCA and DNR- CCstatus. Following discussions about the differences in these status, requested DNR-CCA, no intubation. Verified CODE STATUS and gave example including what patient would want if his heart was still beating but he stopped breathing and even the situation he and his declined intubation. Charges/Coding Visit Charges Inpatient E&M: 09511 Subs Hosp L3 10/11/24 0803 <Electronically signed by Matt Penny MD> Cosigner Signature (if applicable): CC: ~ Signed [facility] Work Phone: 1(861) 510-171303-06-2025 Progress note Author Matt Penny [facility] Note Date/Time October 10, 2024 3:26 pm [facility] Medical Records Department [address] [place] [address] Progress Note - Hospitalist 10/10/24 0808 MR#: [id number] Acct: [id number] Name: YONY VEGA Rep #:[id number] : 1955 68 From: Matt Simon PCP: Dr. Kendy Modi MD Status:ADM IN Location: ICU ICU10-1 Reason for Visit Reason for Visit: Diagnoses Sepsis, unspecified organism (10/10/24) Objective Data Objective Data Vital Signs: Vital Signs Temp Pulse Resp BP Pulse Ox O2 Del Method O2 Flow Rate 99.1 F 110 H 18 106/69 91 Bi-pap 12 10/10/24 05:37 10/10/24 07:00 10/10/24 07:00 10/10/24 07:00 10/10/24 07:00 10/10/24 07:00 10/10/24 06:00 FiO2 50 10/10/24 07:00 Oxygen Flow Rate (L/min) 12 Oxygen Delivery Method Bi-pap Weight: 146 lb 9.718 oz Body Mass Index (BMI) 23.0 Intake & Output: Intake and Output for Last 24 Hours 10/08/24 10/09/24 10/10/24 23:59 23:59 23:59 Intake Total 1287.35 / 1287.35 Output Total 500 / 500 Balance 787.35 / 787.35 Lab / Micro Data 10/10/24 05:57 10/10/24 07:18 Labs: Laboratory Results - last 24 hr 10/10/24 01:37: WBC 11.3 H, RBC 4.25 L, Hgb 12.4 L, Hct 37.4 L, MCV 88.0, MCH 29.2, MCHC 33.2, RDW Std Deviation 46.3 H, RDW Coeff of Maia 14.5, Plt Count 259,MPV 10.0, Immature Gran % (Auto) 0.400, Neut % (Auto) 87.2 H, Lymph % (Auto) 5.4L, Ford % (Auto) 6.6, Eos % (Auto) 0.2, Baso % (Auto) 0.2, Absolute Neuts (auto)9.9 H, Absolute Lymphs (auto) 0.61 L, Nucleated RBC % 0, PT 14.0, INR 1.1, APTT 58.1 H, Sodium 141, Potassium 4.3, Chloride 100, Carbon Dioxide 22.3, Anion Gap 18 H, BUN 26 H, Creatinine 1.39 H, Estim Creat Clear Calc 48.87 L, Est GFR (MDRD) Non-Af 56 L, BUN/Creatinine Ratio 18.4, Glucose 80, Lactic Acid 4.4 H*, Calcium 9.8, Magnesium 1.6, Total Bilirubin 0.48, Direct Bilirubin 0.22, AST 80 H, ALT 27, Alkaline Phosphatase 103, Ammonia 12.6 L, Troponin T High Sens 409 H*, NT pro BNP II 2932 H, Total Protein 8.0, Albumin 4.1, Globulin 3.9 10/10/24 03:18: Urine Color Yellow, Urine Clarity Cloudy, Urine pH 5.0, Ur Specific [place] 1.015, Urine Protein 100 H, Urine Glucose (UA) Normal, Urine Ketones Negative, Urine Occult Blood 150 H, Urine Nitrite Positive H, Urine Bilirubin Negative, Urine Urobilinogen Normal, Ur Leukocyte Esterase 500 H, Urine RBC 0-5 SEEN, Urine WBC 25-50 SEEN, Ur Squamous Epith Cells 0 SEEN, Urine Bacteria 2+, Urine Mucus 0 SEEN 10/10/24 03:30: Troponin T Hi Sens 2 Hr 407 H* 10/10/24 05:57: WBC 10.6, RBC 3.72 L, Hgb 10.9 L, Hct 32.7 L, MCV 87.9, MCH 29.3, MCHC 33.3, RDW Std Deviation 46.8 H, RDW Coeff of Maia 14.6, Plt Count 245,MPV 10.5, Immature Gran % (Auto) 0.300, Neut % (Auto) 86.7 H, Lymph % (Auto) 6.7L, Ford % (Auto) 6.1, Eos % (Auto) 0.1, Baso % (Auto) 0.1, Absolute Neuts (auto)9.2 H, Absolute Lymphs (auto) 0.71 L, Nucleated RBC % 0, Sodium Cancelled, Potassium Cancelled, Chloride Cancelled, Carbon Dioxide Cancelled, Anion Gap Cancelled, BUN Cancelled, Creatinine Cancelled, Estim Creat Clear Calc Cancelled, Est GFR (MDRD) Non-Af Cancelled, BUN/Creatinine Ratio Cancelled, Glucose Cancelled, Calcium Cancelled, Total Bilirubin Cancelled, AST Cancelled, ALT Cancelled, Alkaline Phosphatase Cancelled, Total Protein Cancelled, Albumin Cancelled, Globulin Cancelled, Albumin/Globulin Ratio Cancelled, TSH Cancelled 10/10/24 07:18: Sodium 138, Potassium 4.4, Chloride 100, Carbon Dioxide 21.5, Anion Gap 16 H, BUN 26 H, Creatinine 1.33 H, Estim Creat Clear Calc 51.08, Est GFR (MDRD) Non-Af 59 L, BUN/Creatinine Ratio 19.6, Glucose 188 H, Calcium 8.8, Total Bilirubin 0.45, AST 79 H, ALT 26, Alkaline Phosphatase 85, Total Protein 7.1, Albumin 3.7, Globulin 3.4, Albumin/Globulin Ratio 1.1, TSH 1.590 Micro: Microbiology 10/10/24 03:05 Mucosa - Nasopharyngeal Respiratory Panel (PCR) - Final 10/10/24 03:18 Urine Catheter - Catheter Streptococcus pneumoniae Antigen (M- Final 10/10/24 03:18 Urine Catheter - Mackenzie Legionella Antigen - Final 10/10/24 01:40 Mucosa - Nose SARS-CoV-2, Influenza & RSV (PCR) - Final ABG Data ABG results: ABG 10/10/24 10/10/24 01:52 03:48 Specimen Type MYLES ART Sample Site Not entered L Radial pH 7.31 L Bicarbonate Actual 21.9 L Total CO2 23 Base Excess -4 L O2 Saturation 92 L O2 % 6.0 85.0 ABG pCO2 43.9 ABG pO2 72 L Anthony Test Positive VBG pH 7.39 VBG pO2 18 L* VBG HCO3 27 H VBG Total CO2 28 VBG O2 Sat (Calc) 25 L VBG Base Excess 2 POC Mix VBG pCO2 Pt Tmp 44.8 O2 Delivery Device Cannula AIRVO Vent Mode Not entered Crit Call To/Read Back Yes Blood Gas Notified Whom andes Blood Gas Notified Time 01:54:30 Clinical Comments AIRVO 55L 85% Radiography Diagnostic Testing: Radiology Impression Chest X-Ray 10/10/24 02:00 IMPRESSION: There is now bilateral perihilar ill-defined opacities with a lower zone predominance and suggestion of possible subtle septal lines which may represent pulmonary edema within inflammatory or infectious process not excluded, clinically correlate. No focal consolidative change or evidence of pleural effusion identified.. Reading Location: [facility] Chest CTA 10/10/24 02:05 IMPRESSION: Motion artifact limits the evaluation. No evidence of filling defect to suggestpulmonary embolism. No large central or hilar saddle embolism. Overall findings are most suggestive of pulmonary edema, possible congestive heart failure, clinically correlate with small bilateral pleural effusions and adjacent areas of passive partial appearing collapse of the adjacent lower lobes. Can not entirely exclude a developing infectious process, clinically correlate. One or more dose reduction techniques were used (e.g., Automated exposure control, adjustment of the mA and/or kV according to patient size, use of iterative reconstruction technique). Reading Location: [facility] Abdomen/Pelvis CT 10/10/24 02:10 IMPRESSION: No evidence of acute intra-abdominal process. Suprapubic catheter in place within a collapsed bladder as above. No associatedabscess or soft tissue gas identified. Bilateral ventral ostomies as above. No obstructive process, free air or free fluid. One or more dose reduction techniques were used (e.g., Automated exposure control, adjustment of the mA and/or kV according to patient size, use of iterative reconstruction technique). Reading Location: [facility] Physical Exam Narrative Seen and examined. Patient on BiPAP mask. He is trying to pull BiPAP mask, irritable Physical exam: General: Awake, irritable, confused, orientation cannot be ascertained HEENT: Atraumatic, EOMI, Normocephalic Oral: BiPAP Neck: Supple, No JVD, Negative Carotid Bruits Chest wall/Lungs: Air entry diminished in bilateral lung bases. Bilateral coarse crepitations Cardiovascular: Sinus rhythm, Normal S1, Normal S2, No M/G/R Abdomen: Bowel Sounds Present, Soft, ventral ostomy. Surgical dressing. Dry : Suprapubic catheter. Clear urine on the tube No suprapubic tenderness. Extremities: Mild pedal edema, Capillary Refill Less than 3 Seconds Skin: No rashes, No breakdown Musculoskeletal: No Tenderness to Palpation of Joints or Extremities ROM limited. Muscle power could not be seen Neurological: Confused and disoriented. Detailed neuroexam unobtainable Psych/Mental Status: 80 Assessment & Plan Assessment/Plan (1) Sepsis: PLAN: Plan The patient is a 68 y/o M who is being admitted in ICU after patient's family brought to ED for confusion along with low-grade fever and altered mental status. He also had fatigue muscle aches and headache for last 12 hours. #1. Suspected sepsis due to pneumonia/complicated UTI: Patient is being admitted in ICU. The patient presented with suspected sepsis with clinical indicators of tachycardia, tachypnea, hypoxia, mild leukocytosis due to complicated CAUTI (suprapubic catheter) and possible pneumonia with acute sepsis-related organ dysfunction as evidenced by lactic acidosis, drop in SBP from baseline about 147-150 mmHg to 100 -106 mmHg and acute hypoxic respiratory failure requiring BiPAP/Airvo. Patient did not require pressors yet. Chest x-ray CT scan reviewed and shows mainly pulmonary edema with no filling defect to suggest pulmonary embolism. Small bilateral pleural effusion with partial collapse of adjacent lower lobes. Possible infectious process/pneumonia Patient not candidate for sepsis protocol fluid because of pulmonary edema Patient on IV vancomycin and Zosyn. Linen Room Supervisor consulted. Infectious workup ordered. 2. Acute hypoxic respiratory failure: Patient was 86% on room air. ABG shows 7.31/40/72 on 85% FiO2 Airvo suggestive of increased AA gradient. Bicarb 22. Anion gap 16 creatinine therefore increased anion gap metabolic acidosis. #2. Elevated troponin, potential NSTEMI type II most likely demand ischemia: Twelve-lead EKG shows sinus rhythm, mild ST depression V2-V5, T wave inversion. Chest x-ray suggestive of pulmonary edema. Troponins elevated but [place], 409, 407 and 11/12/1976. proBNP hide about 3000. As Patient on IV heparin drip, aspirin and Plavix. Director Of Materials consulted. 2D echo ordered. ECHO noted 05/28/2024 with LVEF 60%, moderate focal MV calcification, bileaflet, mild MVI, mild TBI, moderate diffuse aortic valve calcification with sclerosis without stenosis #3. Acute kidney injury on CKD 2: admission BUN/Cr 26/1.39, GFR 56, baseline renal function primarily 0.6-0.7. Hold nephrotoxic #4. CAD and peripheral arterial disease and carotid disease status post right CEA and history of stroke/CVA: Status post CABG x 5 with ZUNIGA to LAD and D1, free KIMBERLYN to PDA, SVG to ramus, SVG to OM1 2007 and PCI including [id number] 2014: Continue aspirin, Plavix, statin, Coreg. Patient not on ILDA/ARB because of MADELEINE. Patient also has PAD with PTCA left anterior tibial and peroneal artery. 5. Hypertension: Continue home regimen including amlodipine, Coreg, IV Lasix asable, PRN hydralazine. 6. Hyperlipidemia: Continue home statin regimen. Lipid profile ordered for tomorrow a.m. 7. Diabetes mellitus type II with chronic neuropathy: Accu-Chek before meals and at bedtime with Humalog sliding scale coverage and hypoglycemia protocol. Continue gabapentin 8. Anxiety and depression: On duloxetine 9. Chronic normocytic anemia: Admission hemoglobin 12.4, MCV 88, baseline hemoglobin 10-11 primarily. On beta 10. History colorectal cancer: Patient s/p resection with radiation and chemotherapy in 2020, has colostomy 11. ALEJANDRO: Normally uses CPAP nightly, initially in the ED transitioned to high flow/Airvo, given overload concern transitioned to BIPAP. 12. BPH with obstructive pathology with chronic suprapubic catheter: On Flomax. Suspected UTI, OT 14. GERD: continue patient on PPI. 15DVT prophylaxis: continue heparin drip. . CODE status: Patient healthcare Pap workers compensation defense attorney living will not in place but hiswife who is present would be his medical decision-maker if necessary. Discussed CODE status at length including difference between FULL code, DNR-CCA and DNR- CCstatus. Following discussions about the differences in these status, requested DNR-CCA, no intubation. Verified CODE STATUS and gave example including what patient would want if his heart was still beating but he stopped breathing and even the situation he and his declined intubation. Charges/Coding Visit Charges Inpatient E&M: 80573 Subs Hosp L3 10/10/24 4247 <Electronically signed by Matt Penny MD> Cosigner Signature (if applicable): CC: ~ Signed ADDENDUM by Dr. Matt Penny MD on 10/10/24 at 1626 Addendum 2D echo shows EF 35 to 40% with basal wall segments severely hypokinetic to akinetic but apex bertha well suggesting ZUNIGA to LAD is widely patent with other grafts of doubtful patency. Director Of Materials advised to continue aspirin and Plavix and heparin infusion. Beta-blockers to continue. Coronary angiogram with possible revascularization prior to discharge home when UTI/sepsis volume status improves. 10/10/24 1626<Electronically signed by Matt Penny MD> Cosigner Signature (if applicable): cc: ~* Signed [facility] Work Phone: [phone]) 627-521803-06-2025 Consult note Author Reagan Fatima [facility] Note Date/Time October 10, 2024 11:1 8am [facility] Medical Records Department [address] [place] [address] Consultation - Linen Room Supervisor 10/10/24 0745 MR#: [id number] Acct: [id number] Name: YONY VEGA Rep #:[id number] : 1955 68 From: Reagan Fatima DO PCP: Dr. Kendy Modi MD Status:ADM IN Location: ICU ICU10-1 Assessment & Plan Assessment/Plan (1) Combined systolic and diastolic congestive heart failure: (2) Acute kidney injury: (3) Non-ST elevated myocardial infarction (non-STEMI): (4) Acute respiratory failure with hypoxia: (5) Sepsis: PLAN: Plan RECOMMENDATIONS: 1. Transition from BiPAP to nasal cannula oxygen. Continue to wean to maintainsaturations at or above 90%. 2. Continue empiric antimicrobials, pending culture results. 3. Continue heparin infusion. 4. Diuresis as tolerated by hemodynamics and renal function. 5. PAP therapy with naps and nightly. 6. Echocardiogram is pending. IMPRESSIONS: 1. Sepsis The patient presented to the hospital with sepsis due to suspected UTI with acute sepsis related organ dysfunction as evidenced by lactic acidemia and respiratory failure requiring noninvasive positive pressure ventilatory support. The patient will be continued on antimicrobial therapy, pending culture results. He remains hemodynamically stable. 2. Acute respiratory failure with hypoxemia Most likely secondary to underlying congestive heart failure, as opposed to an occult infectious process. Agree with continuing diuresis as tolerated. The patient has responded to noninvasive positive pressure ventilatory support and will be weaned to nasal cannula oxygen. 3. NSTEMI/acute decompensated heart failure Continue current medical management per cardiology recommendations, while awaiting results of echocardiogram. 4. History of coronary artery disease/history of CVA/diabetes mellitus/obstructive sleep apnea/peripheral arterial disease Complicates care, management, recovery and prognosis. Continue home medicationsas indicated. Recommend continuing PAP therapy nightly per home regimen. CODE STATUS: DNR CCA without intubation This note was generated with [employer] dictation software. It may contain incorrectwords, spelling, and punctuation that were not noted in checking the note beforesigning. HPI Consult Data Date of Consult: 10/10/24 HPI Narrative Reason for Consultation: Sepsis HPI Narrative: The patient is a 68-year-old male, with a history as outlined below, who presented to the emergency department on October 10 with shortness of breath, altered mentation and fever. The patient has a known history of diabetes mellitus, obstructive sleep apnea, history of colon cancer with ostomy, chronic urinary retention with suprapubic catheter, prior history of CVA, coronary artery disease status post CABG and peripheral arterial disease. The patient was last admitted to the hospital in August 2024 with a complicated urinary tract source of infection, which required antimicrobial therapy under the discretion of infectious diseases. On presentation to the emergency department, the patient was documented to be afebrile and hemodynamically stable. He was initially saturating 86% on room air. Laboratory evaluation was notable for a white blood cell count of 11,000. Chemistry profile was notable for a creatinine of 1.39 with a lactate of 4.4. Troponin was elevated at 409 with a BNP of 2932. Urinalysis was positive for nitrites and leukocyte esterase along with 2+ urine bacteria. CTA chest showed no evidence for pulmonary embolism. Bilateral pleural effusions were noted along with evidence of pulmonary edema. CT abdomen/pelvis demonstrated no acuteintra-abdominal process. Over concerns for volume overload, the patient received Lasix and was placed on BiPAP therapy. He was subsequently admitted tot medical intensive care unit for further management. [facility] Medical History Ileostomy present Colostomy in place Orthostatic hypotension Essential hypertension Loss of hearing Wears glasses Cancer Depression Insulin dependent diabetes mellitus Walker as ambulation aid Arthritis High cholesterol Restless legs Injury of back Injury of head and neck Syncope Dietary restriction Gastric reflux Non-smoker CPAP (continuous positive airway pressure) dependence Shortness of breath on exertion Leg cramps History of pain when walking History of echocardiogram History of stress test Cardiology follow-up encounter History of heart attack Colorectal cancer Dysphagia invasive rectal adenocarcinoma Diabetic neuropathy Restrictive lung disease Type 2 diabetes mellitus Anxiety disorder GERD (gastroesophageal reflux disease) Carotid artery disease Obstructive sleep apnea 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 Peripheral vascular occlusive disease CVA (cerebral vascular accident) ALEJANDRO (obstructive sleep apnea) Dyslipidemia HTN (hypertension) Home Medications ?Medication ?Instructions ?Recorded ?Last Taken ?Type aspirin 81 mg chewable tablet 81 mg PO DAILY heart hea lth 03/20/16 03/10/23 History insulin lispro 100 unit/mL 1 sliding scale dose subcut TIDCM 09/26/21 03/10/23 History subcutaneous pen (Humalog KwikPen diabetes (U-100) Insulin) duloxetine 60 mg capsule,delayed 30 mg (1/2 x 60 mg) P O DAILY 03/12/23 03/10/23 Rx release depression #30 caps clopidogrel 75 mg tablet 75 mg PO DAILY blood thinner #90 10/10/23 Unknown Rx tabs pantoprazole 40 mg tablet,delayed 40 mg PO DAILY GERD 12/01/23 Unknown History release sodium chloride 0.9 % 100 ea IV .continuous fluid 12/02/23 Unknown History imbalance amlodipine 10 mg tablet 10 mg PO DAILY BLOOD PRESSUR E 01/31/24 Unknown History calcium carbonate (Tums) 300 mg PO TID PRN dyspepsia 01/31/24 Unknown History melatonin 3 mg tablet 3 mg PO QHS 01/31/24 Unknown History simethicone 125 mg chewable tablet 125 mg PO 4X/DAY VT N abdominal 01/31/24 Unknown History distention sodium chloride 0.65 % nasal spray 2 spray intranasal Q4H PRN dry 01/31/24 Unknown History aerosol (Tennga Saline) nasal passages tamsulosin 0.4 mg capsule (Flomax) 0.8 mg PO QHS 01/30 Unknown History carvedilol 6.25 mg tablet 6.25 mg PO BID #0 tabs 02/08 Unknown Rx acetaminophen 325 mg capsule 650 mg PO Q6H PRN pain Unknown History atorvastatin 20 mg tablet 20 mg PO QDAY 05/21/24 Unkno wn History insulin glargine-yfgn 100 unit/mL 50 unit subcut BID 1 Unknown History (3 mL) subcutaneous pen (Semglee (insulin glargine-yfgn) Pen) gabapentin 300 mg capsule 300 mg PO DAILY 08/25/24 Unk nown History metformin 500 mg tablet,extended 500 mg PO BID 5 Unknown History release 24 hr potassium chloride 20 mEq 20 meq PO DAILY 08/25/24 Unk nown History tablet,extended release(part/cryst) (Klor-Con M) Allergy/AdvReac Type Severity Reaction Status Date / Time No Known Allergies Allergy Verified 10/10/24 01:30 Family History Father CAD (coronary artery disease) Hypertension Cancer leukemia Diabetes Heart disease High cholesterol Mother CVA (cerebral vascular accident) Diabetes Breast cancer Brother Diabetes Surgical History History of bilateral cataract extraction History of left heart catheterization (LHC) (~01/22/15) History of right and left heart catheterization (LHC) (~12/25/14) History of eye surgery PTCA Left Anterior Tibial and Paroneal Artery History of coronary artery stent placement (01/02/15) H/O coronary artery bypass surgery (05/30/08) History of right-sided carotid endarterectomy Excision Max.Zygoma Face Tumor History of tonsillectomy History of herniorrhaphy Social History (Updated 10/10/24 @ 03:[address] Kendra Yuan MD) household members: spouse Smoking Status: Never smoker alcohol intake: never substance use type: does not use caffeine: Yes what type of physical activity do you participate in: none ROS ROS Narrative 10 systems were reviewed with pertinent positives as noted in the HPI above. Physical Exam Const alert and no apparent distress General Appearance: cooperative HEENT normocephalic and head/scalp atraumatic Eyes PERRL, EOMs intact bilaterally and conjunctivae normal Neck supple General: trachea midline Chest inspection of chest normal Resp Auscultation: diminished lung sounds; Negative for rales, rhonchi or wheezes Cardio regular rate and regular rhythm GI normal to inspection, nondistended, normoactive bowel sounds Inspection: ostomy present Extremity no clubbing, cyanosis or edema Skin no rashes or lesions noted Neuro CN's II-XII intact bilaterally and no focal motor deficits Psych Mood & Affect: flat affect Lab / Micro Data 10/10/24 05:57 10/10/24 07:18 Labs: Laboratory Results - last 24 hr 10/10/24 01:37: WBC 11.3 H, RBC 4.25 L, Hgb 12.4 L, Hct 37.4 L, MCV 88.0, MCH 29.2, MCHC 33.2, RDW Std Deviation 46.3 H, RDW Coeff of Maia 14.5, Plt Count 259,MPV 10.0, Immature Gran % (Auto) 0.400, Neut % (Auto) 87.2 H, Lymph % (Auto) 5.4L, Ford % (Auto) 6.6, Eos % (Auto) 0.2, Baso % (Auto) 0.2, Absolute Neuts (auto)9.9 H, Absolute Lymphs (auto) 0.61 L, Nucleated RBC % 0, PT 14.0, INR 1.1, APTT 58.1 H, Sodium 141, Potassium 4.3, Chloride 100, Carbon Dioxide 22.3, Anion Gap 18 H, BUN 26 H, Creatinine 1.39 H, Estim Creat Clear Calc 48.87 L, Est GFR (MDRD) Non-Af 56 L, BUN/Creatinine Ratio 18.4, Glucose 80, Lactic Acid 4.4 H*, Calcium 9.8, Magnesium 1.6, Total Bilirubin 0.48, Direct Bilirubin 0.22, AST 80 H, ALT 27, Alkaline Phosphatase 103, Ammonia 12.6 L, Troponin T High Sens 409 H*, NT pro BNP II 2932 H, Total Protein 8.0, Albumin 4.1, Globulin 3.9 10/10/24 03:18: Urine Color Yellow, Urine Clarity Cloudy, Urine pH 5.0, Ur Specific [place] 1.015, Urine Protein 100 H, Urine Glucose (UA) Normal, Urine Ketones Negative, Urine Occult Blood 150 H, Urine Nitrite Positive H, Urine Bilirubin Negative, Urine Urobilinogen Normal, Ur Leukocyte Esterase 500 H, Urine RBC 0-5 SEEN, Urine WBC 25-50 SEEN, Ur Squamous Epith Cells 0 SEEN, Urine Bacteria 2+, Urine Mucus 0 SEEN 10/10/24 03:30: Troponin T Hi Sens 2 Hr 407 H* 10/10/24 05:57: WBC 10.6, RBC 3.72 L, Hgb 10.9 L, Hct 32.7 L, MCV 87.9, MCH 29.3, MCHC 33.3, RDW Std Deviation 46.8 H, RDW Coeff of Maia 14.6, Plt Count 245,MPV 10.5, Immature Gran % (Auto) 0.300, Neut % (Auto) 86.7 H, Lymph % (Auto) 6.7L, Ford % (Auto) 6.1, Eos % (Auto) 0.1, Baso % (Auto) 0.1, Absolute Neuts (auto)9.2 H, Absolute Lymphs (auto) 0.71 L, Nucleated RBC % 0, Sodium Cancelled, Potassium Cancelled, Chloride Cancelled, Carbon Dioxide Cancelled, Anion Gap Cancelled, BUN Cancelled, Creatinine Cancelled, Estim Creat Clear Calc Cancelled, Est GFR (MDRD) Non-Af Cancelled, BUN/Creatinine Ratio Cancelled, Glucose Cancelled, Calcium Cancelled, Total Bilirubin Cancelled, AST Cancelled, ALT Cancelled, Alkaline Phosphatase Cancelled, Total Protein Cancelled, Albumin Cancelled, Globulin Cancelled, Albumin/Globulin Ratio Cancelled, TSH Cancelled Micro: Microbiology 10/10/24 03:05 Mucosa - Nasopharyngeal Respiratory Panel (PCR) - Final 10/10/24 03:18 Urine Catheter - Catheter Streptococcus pneumoniae Antigen (M- Final 10/10/24 03:18 Urine Catheter - Mackenzie Legionella Antigen - Final 10/10/24 01:40 Mucosa - Nose SARS-CoV-2, Influenza & RSV (PCR) - Final ABG Data ABG results: ABG 10/10/24 10/10/24 01:52 03:48 Specimen Type MYLES ART Sample Site Not entered L Radial pH 7.31 L Bicarbonate Actual 21.9 L Total CO2 23 Base Excess -4 L O2 Saturation 92 L O2 % 6.0 85.0 ABG pCO2 43.9 ABG pO2 72 L Anthony Test Positive VBG pH 7.39 VBG pO2 18 L* VBG HCO3 27 H VBG Total CO2 28 VBG O2 Sat (Calc) 25 L VBG Base Excess 2 POC Mix VBG pCO2 Pt Tmp 44.8 O2 Delivery Device Cannula AIRVO Vent Mode Not entered Crit Call To/Read Back Yes Blood Gas Notified Whom andes Blood Gas Notified Time 01:54:30 Clinical Comments AIRVO 55L 85% Imaging Radiology Impression Chest X-Ray 10/10/24 02:00 IMPRESSION: There is now bilateral perihilar ill-defined opacities with a lower zone predominance and suggestion of possible subtle septal lines which may represent pulmonary edema within inflammatory or infectious process not excluded, clinically correlate. No focal consolidative change or evidence of pleural effusion identified.. Reading Location: [facility] Chest CTA 10/10/24 02:05 IMPRESSION: Motion artifact limits the evaluation. No evidence of filling defect to suggestpulmonary embolism. No large central or hilar saddle embolism. Overall findings are most suggestive of pulmonary edema, possible congestive heart failure, clinically correlate with small bilateral pleural effusions and adjacent areas of passive partial appearing collapse of the adjacent lower lobes. Can not entirely exclude a developing infectious process, clinically correlate. One or more dose reduction techniques were used (e.g., Automated exposure control, adjustment of the mA and/or kV according to patient size, use of iterative reconstruction technique). Reading Location: [facility] Abdomen/Pelvis CT 10/10/24 02:10 IMPRESSION: No evidence of acute intra-abdominal process. Suprapubic catheter in place within a collapsed bladder as above. No associatedabscess or soft tissue gas identified. Bilateral ventral ostomies as above. No obstructive process, free air or free fluid. One or more dose reduction techniques were used (e.g., Automated exposure control, adjustment of the mA and/or kV according to patient size, use of iterative reconstruction technique). Reading Location: [facility] Charges/Coding Visit Charges Inpatient E&M: 56745 Init Hosp L3 10/10/24 1218 <Electronically signed by Reagan Fatima DO> Cosigner Signature (if applicable): CC: Dr. Kendy Modi MD~ Signed [facility] Work Phone: [phone] Consult note Author Prateek Smith [facility] Note Date/Time October 10, 2024 9:51 am [facility] Medical Records Department [address] [place] [address] Consultation - Cardiology 10/10/24 1039 MR#: [id number] Acct: [id number] Name: YONY VEGA Rep #:[id number] : 1955 68 From: Prateek Smith MD PCP: Dr. Kendy Modi MD Status:ADM IN Location: ICU ICU10-1 Assessment & Plan Assessment/Plan (1) Non-ST elevated myocardial infarction (non-STEMI): PLAN: Echocardiogram shows ejection fraction of 35 to 40%. Basal wall segments are severely hypokinetic to akinetic universally. Only apex is bertha well. This is suggestive that the ZUNIGA to the LAD is patent with doubtful patency of the other grafts. Continue aspirin and Plavix. Heparin infusion. Beta-blockers. Recommend coronary angiography with possible revascularization prior to discharge home. We will likely undertake this once he is stable from his UTI/sepsis and his fluid volume status is improved from his congestive heart failure. (2) Coronary artery disease: PLAN: See #1 above. (3) Combined systolic and diastolic congestive heart failure: PLAN: Diuretics. Start on Lasix IV infusion. Continue beta-blockers. Spironolactone. ACEI. SGLT2 inhibitors. (4) UTI (urinary tract infection): PLAN: On antibiotics. (5) Sepsis: PLAN: As per intensive care. (6) Acidosis, lactic: PLAN: As per intensive care. HPI Consult Data Date of Consult: 10/10/24 HPI Narrative Reason for Consultation: NSTEMI HPI Narrative: This gentleman has past medical history significant for coronary artery disease status post CABG. Last coronary angiography in 2014 which revealed total occlusion of the ambler mid LAD, proximal left circumflex and proximal RCA. ZUNIGA to LAD was patent. Free KIMBERLYN to the right PDA was patent. Vein graft to the ramus intermedius was patent with critical lesion in the vein graft to the diagonal branch. Percutaneous intervention with drug-eluting stent was performed on the vein graft to the diagonal branch at the time. Patient presented to the hospital complaining of generalized weakness and aches and pains. Also mental status changes with intermittent confusion. According to his family, he was also running low-grade temperature at home. He has a chronic indwelling suprapubic urinary catheter. Workup revealed diagnosis of UTI, bilateral pulmonary vascular congestion with possible underlying pneumonia as well, and elevated troponin. No history of chest pain. Per patient, he does not have any shortness of breaththough he was noted in the ER to be hypoxic. Patient denies orthopnea or PND. [facility] Medical History Ileostomy present Colostomy in place Orthostatic hypotension Essential hypertension Loss of hearing Wears glasses Cancer Depression Insulin dependent diabetes mellitus Walker as ambulation aid Arthritis High cholesterol Restless legs Injury of back Injury of head and neck Syncope Dietary restriction Gastric reflux Non-smoker CPAP (continuous positive airway pressure) dependence Shortness of breath on exertion Leg cramps History of pain when walking History of echocardiogram History of stress test Cardiology follow-up encounter History of heart attack Colorectal cancer Dysphagia invasive rectal adenocarcinoma Diabetic neuropathy Restrictive lung disease Type 2 diabetes mellitus Anxiety disorder GERD (gastroesophageal reflux disease) Carotid artery disease Obstructive sleep apnea 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 Peripheral vascular occlusive disease CVA (cerebral vascular accident) ALEJANDRO (obstructive sleep apnea) Dyslipidemia HTN (hypertension) Home Medications ?Medication ?Instructions ?Recorded ?Last Taken ?Type aspirin 81 mg chewable tablet 81 mg PO DAILY heart hea lth 03/20/16 03/10/23 History insulin lispro 100 unit/mL 1 sliding scale dose subcut TIDCM 09/26/21 03/10/23 History subcutaneous pen (Humalog KwikPen diabetes (U-100) Insulin) duloxetine 60 mg capsule,delayed 30 mg (1/2 x 60 mg) P O DAILY 03/12/23 03/10/23 Rx release depression #30 caps clopidogrel 75 mg tablet 75 mg PO DAILY blood thinner #90 10/10/23 Unknown Rx tabs pantoprazole 40 mg tablet,delayed 40 mg PO DAILY GERD 12/01/23 Unknown History release sodium chloride 0.9 % 100 ea IV .continuous fluid 12/02/23 Unknown History imbalance amlodipine 10 mg tablet 10 mg PO DAILY BLOOD PRESSUR E 01/31/24 Unknown History calcium carbonate (Tums) 300 mg PO TID PRN dyspepsia 01/31/24 Unknown History melatonin 3 mg tablet 3 mg PO QHS 01/31/24 Unknown History simethicone 125 mg chewable tablet 125 mg PO 4X/DAY VT N abdominal 01/31/24 Unknown History distention sodium chloride 0.65 % nasal spray 2 spray intranasal Q4H PRN dry 01/31/24 Unknown History aerosol (Tennga Saline) nasal passages tamsulosin 0.4 mg capsule (Flomax) 0.8 mg PO QHS 01/30 Unknown History carvedilol 6.25 mg tablet 6.25 mg PO BID #0 tabs 02/08 Unknown Rx acetaminophen 325 mg capsule 650 mg PO Q6H PRN pain Unknown History atorvastatin 20 mg tablet 20 mg PO QDAY 05/21/24 Unkno wn History insulin glargine-yfgn 100 unit/mL 50 unit subcut BID 1 Unknown History (3 mL) subcutaneous pen (Semglee (insulin glargine-yfgn) Pen) gabapentin 300 mg capsule 300 mg PO DAILY 08/25/24 Unk nown History metformin 500 mg tablet,extended 500 mg PO BID 5 Unknown History release 24 hr potassium chloride 20 mEq 20 meq PO DAILY 08/25/24 Unk nown History tablet,extended release(part/cryst) (Klor-Con M) Allergy/AdvReac Type Severity Reaction Status Date / Time No Known Allergies Allergy Verified 10/10/24 01:30 Family History Father CAD (coronary artery disease) Hypertension Cancer leukemia Diabetes Heart disease High cholesterol Mother CVA (cerebral vascular accident) Diabetes Breast cancer Brother Diabetes Surgical History History of bilateral cataract extraction History of left heart catheterization (LHC) (~01/22/15) History of right and left heart catheterization (LHC) (~12/25/14) History of eye surgery PTCA Left Anterior Tibial and Paroneal Artery History of coronary artery stent placement (01/02/15) H/O coronary artery bypass surgery (05/30/08) History of right-sided carotid endarterectomy Excision Max.Zygoma Face Tumor History of tonsillectomy History of herniorrhaphy Social History (Updated 10/10/24 @ 03:[address] Kendra Yuan MD) household members: spouse Smoking Status: Never smoker alcohol intake: never substance use type: does not use caffeine: Yes what type of physical activity do you participate in: none Physical Exam Narrative Patient appears mildly short of breath. Lying flat in the bed. Heart sounds 1 and 2 noted. S3 gallop. Chest with decreased breath sounds bilateral bases. Awake, alert. No ankle edema. Risk Stratification Risk Stratification Applicable: No Objective Data Vital Signs: Vital Signs Temp Pulse Resp BP Pulse Ox O2 Del Method O2 Flow Rate 99.1 F 111 H 15 106/69 96 Bi-pap 12 10/10/24 05:37 10/10/24 08:56 10/10/24 08:56 10/10/24 07:00 10/10/24 08:56 10/10/24 07:00 10/10/24 06:00 FiO2 50 10/10/24 08:56 Oxygen Flow Rate (L/min) 12 Oxygen Delivery Method Bi-pap Weight: 146 lb 9.718 oz Body Mass Index (BMI) 23.0 Intake & Output: Intake and Output for Last 24 Hours 10/08/24 10/09/24 10/10/24 23:59 23:59 23:59 Intake Total 1287.35 / 1287.35 Output Total 500 / 500 Balance 787.35 / 787.35 Lab / Micro Data Attestation: I reviewed the patient's lab results. 10/10/24 05:57 10/10/24 07:18 Labs: Laboratory Results - last 24 hr 10/10/24 01:37: WBC 11.3 H, RBC 4.25 L, Hgb 12.4 L, Hct 37.4 L, MCV 88.0, MCH 29.2, MCHC 33.2, RDW Std Deviation 46.3 H, RDW Coeff of Maia 14.5, Plt Count 259,MPV 10.0, Immature Gran % (Auto) 0.400, Neut % (Auto) 87.2 H, Lymph % (Auto) 5.4L, Ford % (Auto) 6.6, Eos % (Auto) 0.2, Baso % (Auto) 0.2, Absolute Neuts (auto)9.9 H, Absolute Lymphs (auto) 0.61 L, Nucleated RBC % 0, PT 14.0, INR 1.1, APTT 58.1 H, Sodium 141, Potassium 4.3, Chloride 100, Carbon Dioxide 22.3, Anion Gap 18 H, BUN 26 H, Creatinine 1.39 H, Estim Creat Clear Calc 48.87 L, Est GFR (MDRD) Non-Af 56 L, BUN/Creatinine Ratio 18.4, Glucose 80, Lactic Acid 4.4 H*, Calcium 9.8, Magnesium 1.6, Total Bilirubin 0.48, Direct Bilirubin 0.22, AST 80 H, ALT 27, Alkaline Phosphatase 103, Ammonia 12.6 L, Troponin T High Sens 409 H*, NT pro BNP II 2932 H, Total Protein 8.0, Albumin 4.1, Globulin 3.9 10/10/24 03:18: Urine Color Yellow, Urine Clarity Cloudy, Urine pH 5.0, Ur Specific Cordele 1.015, Urine Protein 100 H, Urine Glucose (UA) Normal, Urine Ketones Negative, Urine Occult Blood 150 H, Urine Nitrite Positive H, Urine Bilirubin Negative, Urine Urobilinogen Normal, Ur Leukocyte Esterase 500 H, Urine RBC 0-5 SEEN, Urine WBC 25-50 SEEN, Ur Squamous Epith Cells 0 SEEN, Urine Bacteria 2+, Urine Mucus 0 SEEN 10/10/24 03:30: Troponin T Hi Sens 2 Hr 407 H* 10/10/24 05:57: WBC 10.6, RBC 3.72 L, Hgb 10.9 L, Hct 32.7 L, MCV 87.9, MCH 29.3, MCHC 33.3, RDW Std Deviation 46.8 H, RDW Coeff of Maia 14.6, Plt Count 245,MPV 10.5, Immature Gran % (Auto) 0.300, Neut % (Auto) 86.7 H, Lymph % (Auto) 6.7L, Ford % (Auto) 6.1, Eos % (Auto) 0.1, Baso % (Auto) 0.1, Absolute Neuts (auto)9.2 H, Absolute Lymphs (auto) 0.71 L, Nucleated RBC % 0, Sodium Cancelled, Potassium Cancelled, Chloride Cancelled, Carbon Dioxide Cancelled, Anion Gap Cancelled, BUN Cancelled, Creatinine Cancelled, Estim Creat Clear Calc Cancelled, Est GFR (MDRD) Non-Af Cancelled, BUN/Creatinine Ratio Cancelled, Glucose Cancelled, Calcium Cancelled, Total Bilirubin Cancelled, AST Cancelled, ALT Cancelled, Alkaline Phosphatase Cancelled, Total Protein Cancelled, Albumin Cancelled, Globulin Cancelled, Albumin/Globulin Ratio Cancelled, TSH Cancelled 10/10/24 07:18: Sodium 138, Potassium 4.4, Chloride 100, Carbon Dioxide 21.5, Anion Gap 16 H, BUN 26 H, Creatinine 1.33 H, Estim Creat Clear Calc 51.08, Est GFR (MDRD) Non-Af 59 L, BUN/Creatinine Ratio 19.6, Glucose 188 H, Calcium 8.8, Total Bilirubin 0.45, AST 79 H, ALT 26, Alkaline Phosphatase 85, Troponin T Hi Sens 4Hr 477 H*, Total Protein 7.1, Albumin 3.7, Globulin 3.4, Albumin/Globulin Ratio 1.1, TSH 1.590 10/10/24 10:05: APTT 190.0 H* Micro: Microbiology 10/10/24 03:05 Mucosa - Nasopharyngeal Respiratory Panel (PCR) - Final 10/10/24 03:18 Urine Catheter - Catheter Streptococcus pneumoniae Antigen (M- Final 10/10/24 03:18 Urine Catheter - Mackenzie Legionella Antigen - Final 10/10/24 01:40 Mucosa - Nose SARS-CoV-2, Influenza & RSV (PCR) - Final ABG Data ABG results: ABG 10/10/24 10/10/24 01:52 03:48 Specimen Type MYLES ART Sample Site Not entered L Radial pH 7.31 L Bicarbonate Actual 21.9 L Total CO2 23 Base Excess -4 L O2 Saturation 92 L O2 % 6.0 85.0 ABG pCO2 43.9 ABG pO2 72 L Anthony Test Positive VBG pH 7.39 VBG pO2 18 L* VBG HCO3 27 H VBG Total CO2 28 VBG O2 Sat (Calc) 25 L VBG Base Excess 2 POC Mix VBG pCO2 Pt Tmp 44.8 O2 Delivery Device Cannula AIRVO Vent Mode Not entered Crit Call To/Read Back Yes Blood Gas Notified Whom andes Blood Gas Notified Time 01:54:30 Clinical Comments AIRVO 55L 85% Rhythm Strip Rhythm Strip: Sinus Tach Cardiology Labs/Tests 10/10/24 01:37: WBC 11.3 H, RBC 4.25 L, Hgb 12.4 L, Hct 37.4 L, MCV 88.0, MCH 29.2, MCHC 33.2, Plt Count 259, MPV 10.0, Immature Gran % (Auto) 0.400, Neut % (Auto) 87.2 H, Lymph % (Auto) 5.4 L, Ford % (Auto) 6.6, Eos % (Auto) 0.2, Baso %(Auto) 0.2, Absolute Neuts (auto) 9.9 H, Nucleated RBC % 0, PT 14.0, INR 1.1, APTT 58.1 H, Sodium 141, Potassium 4.3, Chloride 100, Carbon Dioxide 22.3, Anion Gap 18 H, BUN 26 H, Creatinine 1.39 H, Est GFR (MDRD) Non-Af 56 L, BUN/Creatinine Ratio 18.4, Glucose 80, Lactic Acid 4.4 H*, Calcium 9.8, Magnesium 1.6, Total Bilirubin 0.48, Direct Bilirubin 0.22 10/10/24 01:52: VBG pH 7.39, VBG pO2 18 L*, VBG HCO3 27 H, VBG O2 Sat (Calc) 25 L, VBG Base Excess 2 10/10/24 03:18: Urine Color Yellow, Urine Clarity Cloudy, Urine pH 5.0, Ur Specific Cordele 1.015, Urine Protein 100 H, Urine Glucose (UA) Normal, Urine Ketones Negative, Urine Occult Blood 150 H, Urine Nitrite Positive H, Urine Bilirubin Negative, Urine Urobilinogen Normal, Ur Leukocyte Esterase 500 H, Urine RBC 0-5 SEEN, Urine WBC 25-50 SEEN 10/10/24 03:48: pH 7.31 L, Bicarbonate Actual 21.9 L, Base Excess -4 L, O2 Saturation 92 L, ABG pCO2 43.9, ABG pO2 72 L, Anthony Test Positive 10/10/24 05:57: WBC 10.6, RBC 3.72 L, Hgb 10.9 L, Hct 32.7 L, MCV 87.9, MCH 29.3, MCHC 33.3, Plt Count 245, MPV 10.5, Immature Gran % (Auto) 0.300, Neut % (Auto) 86.7 H, Lymph % (Auto) 6.7 L, Ford % (Auto) 6.1, Eos % (Auto) 0.1, Baso %(Auto) 0.1, Absolute Neuts (auto) 9.2 H, Nucleated RBC % 0, Sodium Cancelled, Potassium Cancelled, Chloride Cancelled, Carbon Dioxide Cancelled, Anion Gap Cancelled, BUN Cancelled, Creatinine Cancelled, Est GFR (MDRD) Non-Af Cancelled,BUN/Creatinine Ratio Cancelled, Glucose Cancelled, Calcium Cancelled, Total Bilirubin Cancelled 10/10/24 07:18: Sodium 138, Potassium 4.4, Chloride 100, Carbon Dioxide 21.5, Anion Gap 16 H, BUN 26 H, Creatinine 1.33 H, Est GFR (MDRD) Non-Af 59 L, BUN/Creatinine Ratio 19.6, Glucose 188 H, Calcium 8.8, Total Bilirubin 0.45 10/10/24 10:05: APTT 190.0 H* Rhythm: Sinus tachycardia. EKG: Normal sinus rhythm. Ischemic ST changes in inferior and anterior leads. ECHO: Reviewed. EF 35 to 40%. Moderate MR. Moderate to severe TR. Stress Test: Cardiac Cath: PCI: CT Surgery: Holter monitor: EPS: PPM: CXR: Chest CT Scan: Radiography Diagnostic Testing: Radiology Impression Chest X-Ray 10/10/24 02:00 IMPRESSION: There is now bilateral perihilar ill-defined opacities with a lower zone predominance and suggestion of possible subtle septal lines which may represent pulmonary edema within inflammatory or infectious process not excluded, clinically correlate. No focal consolidative change or evidence of pleural effusion identified.. Reading Location: [facility] Chest CTA 10/10/24 02:05 IMPRESSION: Motion artifact limits the evaluation. No evidence of filling defect to suggestpulmonary embolism. No large central or hilar saddle embolism. Overall findings are most suggestive of pulmonary edema, possible congestive heart failure, clinically correlate with small bilateral pleural effusions and adjacent areas of passive partial appearing collapse of the adjacent lower lobes. Can not entirely exclude a developing infectious process, clinically correlate. One or more dose reduction techniques were used (e.g., Automated exposure control, adjustment of the mA and/or kV according to patient size, use of iterative reconstruction technique). Reading Location: [facility] Abdomen/Pelvis CT 10/10/24 02:10 IMPRESSION: No evidence of acute intra-abdominal process. Suprapubic catheter in place within a collapsed bladder as above. No associatedabscess or soft tissue gas identified. Bilateral ventral ostomies as above. No obstructive process, free air or free fluid. One or more dose reduction techniques were used (e.g., Automated exposure control, adjustment of the mA and/or kV according to patient size, use of iterative reconstruction technique). Reading Location: [id number] Echocardiogram 10/10/24 05:23 Interpretation Summary Severe LV segmental wall motion. Basal portions of the lateral wall, inferior wall, anterior wall, inferior and anterior septum are severely hypokinetic to akinetic. Only the apex is bertha well. Estimated LVEF 35 to 40%. Stage III diastolic dysfunction. The left atrium is severely enlarged. The right atrium is mildly enlarged. Moderate (2+) mitral valve insufficiency. Moderate to severe tricuspid valve insufficiency. Right ventricular systolic pressure estimated at 46 mmHg. Moderate to severe aortic valve calcification. Aortic valve sclerosis with no stenosis. Valve area 1.9 cm?? by planimetry. Ordering Physician: Kendra Yuan Referring Physician: Kendy Modi Performed By: Raya Ma, JOSE ELIAS, RVT 10/10/24 1051 <Electronically signed by Prateek Smith MD> Cosigner Signature (if applicable): CC: Dr. Kendy Modi MD~ Signed [facility] Work Phone: [phone]) 394-813303-06-2025 Consult note Author Vishal Ndiaye [facility] Note Date/Time October 10, 2024 5:22 am [facility] Medical Records Department [address] [place], [place] [address] [address] Pharmacokinetic/Renal -Consult 10/10/24 0621 MR#: [id number] Acct: [id number] Name: YONY VEGA Rep #:[id number] : 1955 68 From: Vishal Vann od PCP: Dr. Kendy Modi MD Status:ADM IN Y Location: ICU ICU10-1 Consult Antibiotic Management Pharmacy has been consulted to manage selected antibiotic: Vancomycin Type of Intervention Type of Consult: New start Microbiology Microbiology: Microbiology 10/10/24 03:18 Urine Catheter - Catheter Streptococcus pneumoniae Antigen (M- Final 10/10/24 03:18 Urine Catheter - Mackenzie Legionella Antigen - Final 10/10/24 01:40 Mucosa - Nose SARS-CoV-2, Influenza & RSV (PCR) - Final Dosing Weight Weight used for dosin.5 kg Estimated Creatinine Clearance Estimated Creatinine Clearance: 48.87 Goal Trough Goal Trough: 15-20 mcg/mL Pharmacy Plan for Drug Dosing Pharmacy Plan for Drug Dosing: Pharmacy Service will continue to monitor and adjust dosing as required. 1000MG GIVEN IN ER @ 0245. START 500MG Q12H AND FOLLOW UP TROUGH PRIOR TO 4TH DOSE Follow-Up Labs Follow-Up Labs: Trough: Vancomycin Date/Time Labs Ordered Labs to be done on [date and time ordered]: 10/11 @ 1430 10/10/24621 <Electronically signed by Vishal zamorano> Date _ Vishal Ramos Signature (if applicable): Date CC: ~ Signed [facility] Work Phone: [phone]) 233-205603-06-2025 History and physical note Author Kendra Yuan [facility] Note Date/Time October 10, 2024 3:51 am [facility] Medical Records Department [address] [place] [address] H&P Exam - Hospitalist 10/10/24 0354 MR#: [id number] Acct: [id number] Name: YONY VEGA Rep #:[id number] : 1955 68 From: Kendra Yuan MD PCP: Dr. Kendy Modi MD Status:REG ER Location: ED HPI - General General Date of Admission: 10/10/24 Date of Service: 10/10/24 Chief Complaint: Confusion, low grade T, N/V, dyspnea. 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, HTN, HLD, RLS, Orthostatic hypotension, ALEJANDRO on CPAP, GERD, Hx Colorectal cancer status postresection with colostomy in place, Chronic urinary retention with chronic indwelling suprapubic catheter, Restrictive Lung Disease, Hx CVA w/ carotid disease s/p R CEA, CAD s/p CABG and PCI, PAD s/p left lower extremity peripheral PCI, recent discharge 08/28/2024 following evaluation treatment with complicated urinary tract infection with suprapubic catheter exchange initial attempt however it was noted to have been sutured in place thus recommendation for urology for follow-up with his urologist at [facility] for outpatient change with urine culture with noted Klebsiella growth with cano sensitivity with associated acute encephalopathy thatimproved as well as lactic acidosis that improved who re- presents to the [facility] ED on 10/10/2024 with onset of low-grade fevers and altered mental status with increasing fatigue, malaise, mild headache and muscle aches prompting ED evaluation to be cautious. reports recent dyspnea without marked cough, nausea and emesis as well. all notes that he has intermittent been confused. Patient without any chest pain complaint noted. Workup in the ED included T98.6, heart rate 100, BP 149/91, respiratory rate 19, initially 86% onroom air with improvement to 92% on 3 L however respiratory status worsened and patient required 7 L high flow to maintain 92% eventually placed on Airvo with FiO2 75% with 50 L, most recent repeat vitals T98.1, heart rate 104, respiratoryrate 20, CBC with WBC 11.3, he 1 12.4, MCV 88, platelet 259 with left shift and lymphopenia, ABG with pH 7.39, pO2 18, bicarb 27 performed on nasal cannula, CMPwith anion gap 18, BUN/creatinine 26/1.39, GFR 56, lactic acid 4.4, hepatic profile with AST 80 otherwise not marked appearing, ammonia 12.6, initial troponin 409, BNP 2932, chest x-ray with bilateral perihilar ill-defined opacities with a lower zone predominance suggestive of possible subtle septal lines possibly pulmonary edema with inflammatory or infectious process unable stephanie excluded, CT abdomen and pelvis with IV contrast with no evidence of any acute intra-abdominal process with evidence of suprapubic catheter in place within the collapsed bladder, bilateral ventral ostomies, no obstructive process, CTA chest with and without contrast with no evidence of any filling defect to suggest PE or any large or hilar saddle embolism, overall findings most suggestive of pulmonary edema, congestive heart failure with small bilateral pleural effusions and adjacent areas of passive partial appearing collapse of the adjacent lower lobes although cannot exclude infectious developing process, urinalysis with cloudy urine, protein 100, occult blood 150,positive nitrite, leukocyte Estrace 500 with urine WBCs 25-50 with 2+ urine bacteria, blood culture x 2 pending per ED, urine culture pending per ED, EKG with SR with V2-V5 ST depression, T wave inversions new from prior, rapid COVID/Influenza/RSV negative. In the ED patient administered aspirin 325 mg p.o. x 1, Plavix 300 mg p.o. load, heparin bolus and drip, morphine 2 mg IV x 1,Zofran 4 mg IV x 3, nitroglycerin transdermal x 1, IV Zosyn and IV vancomycin, Lasix 40 mg IV x 1 as well as prochlorperazine 5 mg IV x 1. ED discussed case with Dr. Smith. Given concern for overload component transitioned to BIPAP. [facility] Medical History Ileostomy present Colostomy in place Orthostatic hypotension Essential hypertension Loss of hearing Wears glasses Cancer Depression Insulin dependent diabetes mellitus Walker as ambulation aid Arthritis High cholesterol Restless legs Injury of back Injury of head and neck Syncope Dietary restriction Gastric reflux Non-smoker CPAP (continuous positive airway pressure) dependence Shortness of breath on exertion Leg cramps History of pain when walking History of echocardiogram History of stress test Cardiology follow-up encounter History of heart attack Colorectal cancer Dysphagia invasive rectal adenocarcinoma Diabetic neuropathy Restrictive lung disease Type 2 diabetes mellitus Anxiety disorder GERD (gastroesophageal reflux disease) Carotid artery disease Obstructive sleep apnea 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 Peripheral vascular occlusive disease CVA (cerebral vascular accident) ALEJANDRO (obstructive sleep apnea) Dyslipidemia HTN (hypertension) Home Medications ?Medication ?Instructions ?Recorded ?Last Taken ?Type aspirin 81 mg chewable tablet 81 mg PO DAILY heart hea lth 03/20/16 03/10/23 History insulin lispro 100 unit/mL 1 sliding scale dose subcut TIDCM 09/26/21 03/10/23 History subcutaneous pen (Humalog KwikPen diabetes (U-100) Insulin) duloxetine 60 mg capsule,delayed 30 mg (1/2 x 60 mg) P O DAILY 03/12/23 03/10/23 Rx release depression #30 caps clopidogrel 75 mg tablet 75 mg PO DAILY blood thinner #90 10/10/23 Unknown Rx tabs pantoprazole 40 mg tablet,delayed 40 mg PO DAILY GERD 12/01/23 Unknown History release sodium chloride 0.9 % 100 ea IV .continuous fluid 12/02/23 Unknown History imbalance amlodipine 10 mg tablet 10 mg PO DAILY BLOOD PRESSUR E 01/31/24 Unknown History calcium carbonate (Tums) 300 mg PO TID PRN dyspepsia 01/31/24 Unknown History melatonin 3 mg tablet 3 mg PO QHS 01/31/24 Unknown History simethicone 125 mg chewable tablet 125 mg PO 4X/DAY VT N abdominal 01/31/24 Unknown History distention sodium chloride 0.65 % nasal spray 2 spray intranasal Q4H PRN dry 01/31/24 Unknown History aerosol (Tennga Saline) nasal passages tamsulosin 0.4 mg capsule (Flomax) 0.8 mg PO QHS 01/30 Unknown History carvedilol 6.25 mg tablet 6.25 mg PO BID #0 tabs 02/08 Unknown Rx acetaminophen 325 mg capsule 650 mg PO Q6H PRN pain Unknown History atorvastatin 20 mg tablet 20 mg PO QDAY 05/21/24 Unkno wn History insulin glargine-yfgn 100 unit/mL 50 unit subcut BID 1 Unknown History (3 mL) subcutaneous pen (Semglee (insulin glargine-yfgn) Pen) gabapentin 300 mg capsule 300 mg PO DAILY 08/25/24 Unk nown History metformin 500 mg tablet,extended 500 mg PO BID 5 Unknown History release 24 hr potassium chloride 20 mEq 20 meq PO DAILY 08/25/24 Unk nown History tablet,extended release(part/cryst) (Klor-Con M) Allergy/AdvReac Type Severity Reaction Status Date / Time No Known Allergies Allergy Verified 10/10/24 01:30 Family History Father CAD (coronary artery disease) Hypertension Cancer leukemia Diabetes Heart disease High cholesterol Mother CVA (cerebral vascular accident) Diabetes Breast cancer Brother Diabetes Surgical History History of bilateral cataract extraction History of left heart catheterization (LHC) (~01/22/15) History of right and left heart catheterization (LHC) (~12/25/14) History of eye surgery PTCA Left Anterior Tibial and Paroneal Artery History of coronary artery stent placement (01/02/15) H/O coronary artery bypass surgery (05/30/08) History of right-sided carotid endarterectomy Excision Max.Zygoma Face Tumor History of tonsillectomy History of herniorrhaphy Social History (Updated 10/10/24 @ 03:[address] Kendra Yuan MD) household members: spouse Smoking Status: Never smoker alcohol intake: never substance use type: does not use caffeine: Yes what type of physical activity do you participate in: none ROS ROS Narrative Admission Review of Systems: CONSTITUTIONAL: No weight loss, +fever, chills, weakness or fatigue. HEENT: Eyes: No visual loss, blurred vision, double vision or yellow sclerae. Ears, Nose, Throat: No hearing loss, sneezing, congestion, runny nose or sore throat. SKIN: No rash or itching, lesions, wounds. CARDIOVASCULAR: No chest pain, chest pressure or chest discomfort, palpitations,edema, orthopnea, syncopal events. RESPIRATORY: + Dyspnea. No recent marked cough or sputum, wheezing, hemoptysis. GASTROINTESTINAL: + Decreased appetite, nausea and emesis. No diarrhea, abdominal pain, melena, BRBPR. GENITOURINARY: No dysuria, frequency, urgency or retention. NEUROLOGICAL: + Confusion, headache, chronic diabetic neuropathy. No dizziness,syncope, paralysis, ataxia, focal weakness, change in bowel or bladder control, seizure. MUSCULOSKELETAL: + muscle, back pain, joint pain or stiffness. HEMATOLOGIC: + Chronic anemia, easy bleeding/bruising history. LYMPHATICS: No enlarged nodes. No history of splenectomy. PSYCHIATRIC: + History of anxiety and depression. ENDOCRINOLOGIC: No reports of sweating, cold or heat intolerance. No polyuria orpolydipsia. ALLERGIES: + History of rhinitis. Vital Signs Vital Signs Vital Signs: 10/10/24 01:25 10/10/24 01:29 10/10/24 01:38 Temperature 98.6 F Temperature Source Oral Pulse Rate 100 Respiratory Rate 19 H Blood Pressure 149/91 H Blood Pressure Mean 110 Pulse Ox 86 92 88 Oxygen Delivery Method Room Air Nasal Cannula Nasal Cannula Oxygen Flow Rate (L/min) 3 3 Fraction of Inspired Oxygen (FIO2) 10/10/24 01:38 10/10/24 01:42 10/10/24 01:44 Temperature Temperature Source Pulse Rate Respiratory Rate Blood Pressure Blood Pressure Mean Pulse Ox 88 90 88 Oxygen Delivery Method Nasal Cannula Nasal Cannula Nasal Cannula Oxygen Flow Rate (L/min) 4 4 4 Fraction of Inspired Oxygen (FIO2) 10/10/24 01:50 10/10/24 01:54 10/10/24 02:15 Temperature Temperature Source Pulse Rate 104 H Respiratory Rate 24 H Blood Pressure Blood Pressure Mean Pulse Ox 88 92 92 Oxygen Delivery Method Nasal Cannula High Flow Oxygen Flow Rate (L/min) 6 7 Fraction of Inspired Oxygen (FIO2) 60 10/10/24 02:17 10/10/24 02:29 10/10/24 02:34 Temperature 98.1 F Temperature Source Oral Pulse Rate 102 H 105 H 104 H Respiratory Rate 16 20 H Blood Pressure 147/60 H 139/89 H Blood Pressure Mean 105 Pulse Ox 91 Oxygen Delivery Method Airvo Oxygen Flow Rate (L/min) 50 Fraction of Inspired Oxygen (FIO2) 75 75 10/10/24 03:00 10/10/24 03:24 10/10/24 03:48 Temperature 98.5 F Temperature Source Oral Pulse Rate 107 H 118 H 120 H Respiratory Rate 22 H 11 L 21 H Blood Pressure 102/64 Blood Pressure Mean 76 Pulse Ox 92 95 96 Oxygen Delivery Method Airvo Oxygen Flow Rate (L/min) 55 Fraction of Inspired Oxygen (FIO2) 85 85 75 Weight Weight: 160 lb 0.889 oz Body Mass Index (BMI) 25.0 Physical Exam Narrative Physical Examination: General: Awake and stimuli, intermittently alert, oriented to self and some things but intermittently confused which notes has been occurring since he has been ill-appearing, laying in the ED bed, on BiPAP, no evidence of any respiratory distress. Skin: Normal color, normal turgor, no icterus, no cyanosis. HEENT: AT/NC, EOMI, PERRLA, mildly dry MM, BiPAP in place, difficult to discern bruits given referred sounds from BiPAP, + JVD noted. Lungs: Diminished, greater bases, BiPAP in place, mild tachypnea but no respiratory distress, mildly rhonchorous in the lower lobes, no wheezing. Heart: Tachycardic with regular rhythm; no gallop, rub audible. Abdomen: Soft, NTTP, ND, ostomy in place, mildly decreased BS, no appreciated HSM. Extremities: No cyanosis, clubbing, or edema. Neurological: Patient awake, alert, oriented as noted, cognitive function improving but still not baseline intact; pupils equally reactive to light and accommodation, cranial nerves grossly normal, moving all 4 extremities, no focaldeficits, strength severely globally decreased Psychiatric: Affect appears flat, fatigued, intermittently more lethargic, no acute evidence of depressive or anxiety feelings but does have underlying history. Results Lab / Micro Data 10/10/24 01:37 10/10/24 01:37 Labs: Laboratory Results - last 24 hr 10/10/24 01:37: WBC 11.3 H, RBC 4.25 L, Hgb 12.4 L, Hct 37.4 L, MCV 88.0, MCH 29.2, MCHC 33.2, RDW Std Deviation 46.3 H, RDW Coeff of Maia 14.5, Plt Count 259,MPV 10.0, Immature Gran % (Auto) 0.400, Neut % (Auto) 87.2 H, Lymph % (Auto) 5.4L, Ford % (Auto) 6.6, Eos % (Auto) 0.2, Baso % (Auto) 0.2, Absolute Neuts (auto)9.9 H, Absolute Lymphs (auto) 0.61 L, Nucleated RBC % 0, PT 14.0, INR 1.1, APTT 58.1 H, Sodium 141, Potassium 4.3, Chloride 100, Carbon Dioxide 22.3, Anion Gap 18 H, BUN 26 H, Creatinine 1.39 H, Estim Creat Clear Calc 48.87 L, Est GFR (MDRD) Non-Af 56 L, BUN/Creatinine Ratio 18.4, Glucose 80, Lactic Acid 4.4 H*, Calcium 9.8, Magnesium 1.6, Total Bilirubin 0.48, Direct Bilirubin 0.22, AST 80 H, ALT 27, Alkaline Phosphatase 103, Ammonia 12.6 L, Troponin T High Sens 409 H*, NT pro BNP II 2932 H, Total Protein 8.0, Albumin 4.1, Globulin 3.9 10/10/24 03:18: Urine Color Yellow, Urine Clarity Cloudy, Urine pH 5.0, Ur Specific [place] 1.015, Urine Protein 100 H, Urine Glucose (UA) Normal, Urine Ketones Negative, Urine Occult Blood 150 H, Urine Nitrite Positive H, Urine Bilirubin Negative, Urine Urobilinogen Normal, Ur Leukocyte Esterase 500 H, Urine RBC 0-5 SEEN, Urine WBC 25-50 SEEN, Ur Squamous Epith Cells 0 SEEN, Urine Bacteria 2+, Urine Mucus 0 SEEN Micro: Microbiology 10/10/24 01:40 Mucosa - Nose SARS-CoV-2, Influenza & RSV (PCR) - Final ABG Data ABG results: ABG 10/10/24 10/10/24 01:52 03:48 Specimen Type MYLES ART Sample Site Not entered L Radial pH 7.31 L Bicarbonate Actual 21.9 L Total CO2 23 Base Excess -4 L O2 Saturation 92 L O2 % 6.0 85.0 ABG pCO2 43.9 ABG pO2 72 L Anthony Test Positive VBG pH 7.39 VBG pO2 18 L* VBG HCO3 27 H VBG Total CO2 28 VBG O2 Sat (Calc) 25 L VBG Base Excess 2 POC Mix VBG pCO2 Pt Tmp 44.8 O2 Delivery Device Cannula AIRVO Vent Mode Not entered Crit Call To/Read Back Yes Blood Gas Notified Whom andes Blood Gas Notified Time 01:54:30 Clinical Comments AIRVO 55L 85% Imaging Radiology Impression Chest X-Ray 10/10/24 02:00 IMPRESSION: There is now bilateral perihilar ill-defined opacities with a lower zone predominance and suggestion of possible subtle septal lines which may represent pulmonary edema within inflammatory or infectious process not excluded, clinically correlate. No focal consolidative change or evidence of pleural effusion identified.. Reading Location: [facility] Chest CTA 10/10/24 02:05 IMPRESSION: Motion artifact limits the evaluation. No evidence of filling defect to suggestpulmonary embolism. No large central or hilar saddle embolism. Overall findings are most suggestive of pulmonary edema, possible congestive heart failure, clinically correlate with small bilateral pleural effusions and adjacent areas of passive partial appearing collapse of the adjacent lower lobes. Can not entirely exclude a developing infectious process, clinically correlate. One or more dose reduction techniques were used (e.g., Automated exposure control, adjustment of the mA and/or kV according to patient size, use of iterative reconstruction technique). 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, HTN, HLD, RLS, Orthostatic hypotension, ALEJANDRO on CPAP, GERD, Hx Colorectal cancer status postresection with colostomy in place, Chronic urinary retention with chronic indwelling suprapubic catheter, Restrictive Lung Disease, Hx CVA w/ carotid disease s/p R CEA, CAD s/p CABG and PCI, PAD s/p left lower extremity peripheral PCI, recent discharge 08/28/2024 following evaluation treatment with complicated urinary tract infection with suprapubic catheter exchange initial attempt however it was noted to have been sutured in place thus recommendation for urology for follow-up with his urologist at [facility] for outpatient change with urine culture with noted Klebsiella growth with cano sensitivity with associated acute encephalopathy thatimproved as well as lactic acidosis that improved who re- presents to the [facility] ED on 10/10/2024 with onset of low-grade fevers and altered mental status with increasing fatigue, malaise, mild headache and muscle aches prompting ED evaluation to be cautious. #1. Acute Sepsis (Acute Complicated UTI, Possible PNA, LA elevated, MADELEINE end organ damage component, acute hypoxic respiratory failure, evidence UTI on UA) secondary to Acute Encephalopathy secondary to Acute Hypoxic Respiratory Failure, felt multifactorial, secondary to concern for Acute bilateral lower lobe pneumonia with recent admission thus concern for possible gram-negative/gram-positive organisms complicated by underlying restrictive lungdisease history as well as Acute Complicated UTI secondary to Chronic IndwellingSuprapubic Catheter in addition to more pronounced concern for Acutely Decompensated HFpEF with associated elevated cardiac enzyme, possibly NSTEMI secondary to demand with hypoxemia as well as noted lactic acidosis possibly also secondary to hypoxemia concurrently: Patient administered IV lasix in the ED. Given respiratory failure will admit to the ICU to be cautious, will place on BIPAP to assist with overload, will defer 30 cc/kg IVFs given overload appearance and need for diuresis, will maintain on cardiac telemetry, obtain cardiac enzyme series, obtain serial EKGs, continue IV lasix diuresis, monitor I/Os, maintain on intake restriction, continue medical therapy, obtain TSH, supplement magnesium with repeat level following, most recent ECHO noted 05/28/2024 with LVEF 60%, moderate focal MV calcification, bileaflet, mild MVI, mild TBI, moderate diffuse aortic valve calcification with sclerosis without stenosis thus given current presentation with NSTEMI will repeat. Will continueaggressive oxygen supplementation with de-escalation as able, PRN albuterol, will maintain on BSA with IV Zosyn and IV vancomycin with pending MRSA screen with de-escalation of antibiotic therapy if able with lower suspicion of PNA andsuspect more likely heart failure causing hypoxia with acute UTI as well, HOB, IS parameters w/ pending sputum cultures and urine antigens. Full respiratory viral pending per ED. Bld cx x 2 obtained in the ED. Will request Urology consult for suprapubic catheter change as notes with recent change following last admission they did not suture it in place. PT/OT/case management consult for discharge planning. #2. Elevated troponin, potential NSTEMI type II suspected secondary to demand with noted hypoxemia and acute presentation as noted #1: EKG with SR with V2-V5 ST depression, T wave inversions new from prior, CXR/CTPA with overload concernsas noted, trop elevated, 409. Will maintain on a monitored bed, continue serial cardiac enzymes and EKGs. Magnesium 1.6 per ED with supplementation administered. Will maintain on heparin drip. Continue medical management with aspirin, Plavix concurrently, already loaded in the ED. ECHO requested. Cardiology consulted. #3. Acute kidney injury: Secondary to acute presentation #1, admission BUN/Cr 26/1.39, GFR 56, baseline renal function primarily 0.6-0.7 although has vacillated, unfortunately given current presentation will need to continue diuresis, will hold any other nephrotoxic medications aside lasix, continue to closely trend and further evaluate if needed. #4. CAD: Status post CABG x 5 with ZUNIGA to LAD and D1, free KIMBERLYN to PDA, SVG toramus, SVG to OM1 2007 and PCI including GDN-SCV-tylds 2014, will continue aspirin, Plavix as noted above with low given the ED, statin therapy, Coreg, noton ILDA inhibitor/ARB and regardless given acute kidney injury would hold. #5. PAD: Noted PTCA left anterior tibial and peroneal artery, will continue aspirin, Plavix as noted above with low given the ED, statin therapy, hypertensive regimen as noted, diabetic regimen with adjustments as noted. #6. History CVA: We will continue aspirin, Plavix as noted above with load given in the ED, statin therapy, hypertensive regimen as BP allows, diabetic regimen with adjustments as noted. #7. Hypertension: Continue home regimen including amlodipine, Coreg, IV Lasix as able, PRN hydralazine. #8. Hyperlipidemia: Continue home statin regimen. AM FLP. #9. Carotid disease: Status post right carotid endarterectomy, will continue aspirin, Plavix as noted above with low given the ED, statin therapy, hypertensive regimen as noted, diabetic regimen with adjustments as noted. #10. Diabetes mellitus type II with chronic neuropathy: Hold oral home regimen,continue home insulin regimen, NPO status pending cardiology evaluation to be cautious, accu checks w/ ISS, continue chronic gabapentin regimen. #11. Anxiety and depression: We will continue patient home duloxetine regimen. #12. Chronic normocytic anemia: Admission hemoglobin 12.4, MCV 88, baseline hemoglobin 10-11 primarily, continue to trend. #13. History colorectal cancer: Patient s/p resection with radiation and chemotherapy in 2020, ostomy in place, consider admission, encourage continued outpatient follow-up as previously arranged. #14. ALEJANDRO: Normally uses CPAP nightly, initially in the ED transitioned to high flow/Airvo, given overload concern transitioned to BIPAP. #15. BPH with obstructive pathology with chronic suprapubic catheter: We will continue patient on Flomax regimen, continue treatment of UTI as noted. Will request Urology consult for suprapubic catheter change as notes with recentchange following last admission they did not suture it in place. #16. GERD: We will continue patient on PPI. #17. DVT prophylaxis: Will continue heparin drip. #18. CODE status: Patient healthcare Pap workers compensation defense attorney living will not in place but his who is present would be his medical decision-maker if necessary. Discussed CODE status at length including difference between FULL code, DNR-CCA and DNR-CC status. Following discussions about the differences in these status, requested DNR-CCA, no intubation. Verified CODE STATUS and gave example including what patient would want if his heart was still beating but he stopped breathing and even the situation he and his declined intubation. Advanced Care Planning Face to Face Time: 16 minutes. Charges/Coding Visit Charges Inpatient E&M: 53775 Init Hosp L3 Procedures Hospitalists Procedures: 99008 Advncd Care Plan 30 Min 10/10/24 0450 <Electronically signed by Kendra Yuan MD> Cosigner Signature (if applicable): CC: Dr. Kendy Modi MD; Dr. Kendra Yuan MD~ Signed ADDENDUM by Dr. Kendra Yuan MD on 10/10/24 at 0450 Sepsis Attestation Sepsis Attestation: Agree w/Sepsis Date exam was performed: 10/10/24 Time exam was performed: 04:50 Possible Source of Sepsis: Pulmonary and Genitourinary Sepsis Organ Dysfunction Criteria Present: Acute Respiratory Failure (New need for BiPAP/CPAP or MV), Lactic Acid > 2 mmol/L, New/Unexplained change in mental status and None (MADELEINE) Fluid Resuscitation Fluid Resuscitation ordered: Lesser volume fluid bolus ordered Amount of fluid ordered: 1,000 Reason for lesser fluid bolus:: Heart failure Sepsis Note Date exam was performed: 10/10/24 Time exam was performed: 04:50 Sepsis Attestation: Sepsis re-evaluation was performed 10/10/24 0450<Electronically signed by Kendra Yuan MD> Cosigner Signature (if applicable): cc: Dr. Kendy Modi MD; Dr. Kendra Yuan MD ~* Signed [facility] Work Phone: [phone] Discharge summary Author Ross Crump [facility] Note Date/Time October 10, 2024 3:05 am [facility] Medical Records Department [address] [place] [address] Emergency Department Summary 10/10/24 MR#: [id number] Acct: [id number] Name: YONY VEGA Rep #:[id number] : 1955 68 From: Ross Crump DO PCP: Dr. Kendy Modi MD Status:REG ER Location: ED HPI History of Present Illness Chief Complaint: Confusion Informant: patient and spouse/S.O. Narrative Narrative: Patient is a 68-year-old male with a past medical history of coronary artery disease status post bypass in 2007 as well as stent placement in 2018. He has ahistory of hypertension hyperlipidemia and type 2 diabetes. He also has an ostomy and chronic indwelling suprapubic catheter. He was admitted in August 2024 secondary to complicated UTI from the suprapubic catheter. reported that time that he had low-grade fever and altered mental status. Patient and report that today over the last 12 hours he has had fatigue with muscle aches and headache and also reports intermittent confusion. She states shehas concern that he is developing a repeat UTI and secondary to this brought himin for evaluation [facility] Medical History Ileostomy present Colostomy in place Orthostatic hypotension Essential hypertension Loss of hearing Wears glasses Cancer Depression Insulin dependent diabetes mellitus Walker as ambulation aid Arthritis High cholesterol Restless legs Injury of back Injury of head and neck Syncope Dietary restriction Gastric reflux Non-smoker CPAP (continuous positive airway pressure) dependence Shortness of breath on exertion Leg cramps History of pain when walking History of echocardiogram History of stress test Cardiology follow-up encounter History of heart attack Colorectal cancer Dysphagia invasive rectal adenocarcinoma Diabetic neuropathy Restrictive lung disease Type 2 diabetes mellitus Anxiety disorder GERD (gastroesophageal reflux disease) Carotid artery disease Obstructive sleep apnea 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 Peripheral vascular occlusive disease CVA (cerebral vascular accident) ALEJANDRO (obstructive sleep apnea) Dyslipidemia HTN (hypertension) Home Medications ?Medication ?Instructions ?Recorded ?Last Taken ?Type aspirin 81 mg chewable tablet 81 mg PO DAILY heart hea lt 03/20/16 03/10/23 History insulin lispro 100 unit/mL 1 sliding scale dose subcut TIDCM 09/26/21 03/10/23 History subcutaneous pen (Humalog KwikPen diabetes (U-100) Insulin) duloxetine 60 mg capsule,delayed 30 mg (1/2 x 60 mg) P O DAILY 03/12/23 03/10/23 Rx release depression #30 caps clopidogrel 75 mg tablet 75 mg PO DAILY blood thinner #90 10/10/23 Unknown Rx tabs pantoprazole 40 mg tablet,delayed 40 mg PO DAILY GERD 12/01/23 Unknown History release sodium chloride 0.9 % 100 ea IV .continuous fluid 12/02/23 Unknown History imbalance amlodipine 10 mg tablet 10 mg PO DAILY BLOOD PRESSUR E 01/31/24 Unknown History calcium carbonate (Tums) 300 mg PO TID PRN dyspepsia 01/31/24 Unknown History melatonin 3 mg tablet 3 mg PO QHS 01/31/24 Unknown History simethicone 125 mg chewable tablet 125 mg PO 4X/DAY VT N abdominal 01/31/24 Unknown History distention sodium chloride 0.65 % nasal spray 2 spray intranasal Q4H PRN dry 01/31/24 Unknown History aerosol (Tennga Saline) nasal passages tamsulosin 0.4 mg capsule (Flomax) 0.8 mg PO QHS 01/30 Unknown History carvedilol 6.25 mg tablet 6.25 mg PO BID #0 tabs 02/08 Unknown Rx acetaminophen 325 mg capsule 650 mg PO Q6H PRN pain Unknown History atorvastatin 20 mg tablet 20 mg PO QDAY 05/21/24 Unkno wn History insulin glargine-yfgn 100 unit/mL 50 unit subcut BID 1 Unknown History (3 mL) subcutaneous pen (Semglee (insulin glargine-yfgn) Pen) gabapentin 300 mg capsule 300 mg PO DAILY 08/25/24 Unk nown History metformin 500 mg tablet,extended 500 mg PO BID 5 Unknown History release 24 hr potassium chloride 20 mEq 20 meq PO DAILY 08/25/24 Unk nown History tablet,extended release(part/cryst) (Klor-Con M) Allergy/AdvReac Type Severity Reaction Status Date / Time No Known Allergies Allergy Verified 10/10/24 01:30 Family History Father CAD (coronary artery disease) Hypertension Cancer leukemia Diabetes Heart disease High cholesterol Mother CVA (cerebral vascular accident) Diabetes Breast cancer Brother Diabetes Surgical History History of bilateral cataract extraction History of left heart catheterization (LHC) (~01/22/15) History of right and left heart catheterization (LHC) (~12/25/14) History of eye surgery PTCA Left Anterior Tibial and Paroneal Artery History of coronary artery stent placement (01/02/15) H/O coronary artery bypass surgery (05/30/08) History of right-sided carotid endarterectomy Excision Max.Zygoma Face Tumor History of tonsillectomy History of herniorrhaphy Social History (Updated 10/10/24 @ 03:[address] Kendra Yuan MD) household members: spouse Smoking Status: Never smoker alcohol intake: never substance use type: does not use caffeine: Yes what type of physical activity do you participate in: none ROS ROS ED Constitutional Constitutional ED: Denies chills or fever(s) Eyes Eyes: Denies change in vision ENT ENT ED: Denies rhinorrhea or sore throat Cardiovascular Cardiovascular: Denies chest pain, palpitations or racing heartbeat Respiratory/Chest Respiratory/Chest: Reports dyspnea; Denies cough Gastrointestinal Gastrointestinal: Reports nausea and vomiting; Denies abdominal pain or diarrhea Musculoskeletal Musculoskeletal: Reports myalgias Integumentary Denies rash Neurologic Neurologic: Reports headache(s) and weakness Hematologic/Lymphatic Hematologic/Lymphatic: Reports easy bleeding and easy bruising EXAM Physical Exam Const Vital Signs: 10/10/24 01:25 10/10/24 01:29 10/10/24 01:38 Temperature 98.6 F Temperature Source Oral Pulse Rate 100 Respiratory Rate 19 H Blood Pressure 149/91 H Blood Pressure Mean 110 Pulse Ox 86 92 88 Oxygen Delivery Method Room Air Nasal Cannula Nasal Cannula Oxygen Flow Rate (L/min) 3 3 Fraction of Inspired Oxygen (FIO2) 10/10/24 01:38 10/10/24 01:42 10/10/24 01:44 Temperature Temperature Source Pulse Rate Respiratory Rate Blood Pressure Blood Pressure Mean Pulse Ox 88 90 88 Oxygen Delivery Method Nasal Cannula Nasal Cannula Nasal Cannula Oxygen Flow Rate (L/min) 4 4 4 Fraction of Inspired Oxygen (FIO2) 10/10/24 01:50 10/10/24 01:54 10/10/24 02:15 Temperature Temperature Source Pulse Rate 104 H Respiratory Rate 24 H Blood Pressure Blood Pressure Mean Pulse Ox 88 92 92 Oxygen Delivery Method Nasal Cannula High Flow Oxygen Flow Rate (L/min) 6 7 Fraction of Inspired Oxygen (FIO2) 60 10/10/24 02:17 10/10/24 02:29 10/10/24 02:34 Temperature 98.1 F Temperature Source Oral Pulse Rate 102 H 105 H 104 H Respiratory Rate 16 20 H Blood Pressure 147/60 H 139/89 H Blood Pressure Mean 105 Pulse Ox 91 Oxygen Delivery Method Airvo Oxygen Flow Rate (L/min) 50 Fraction of Inspired Oxygen (FIO2) 75 75 10/10/24 03:00 10/10/24 03:24 10/10/24 03:48 Temperature 98.5 F Temperature Source Oral Pulse Rate 107 H 118 H 120 H Respiratory Rate 22 H 11 L 21 H Blood Pressure 102/64 Blood Pressure Mean 76 Pulse Ox 92 95 96 Oxygen Delivery Method Airvo Oxygen Flow Rate (L/min) 55 Fraction of Inspired Oxygen (FIO2) 85 85 75 Positive well nourished and well developed General Appearance ED: well developed HEENT HEENT Narrative: No tongue or lip swelling no oral lesions no airway edema or compromise There is mild cobblestoning in the posterior pharynx consistent with sinus drainage without secondary findings to suggest infection Eyes PERRL and EOMs intact bilaterally General Eye ED: Negative for scleral icterus Neck supple and no JVD Neck Narrative: No nuchal rigidity or meningeal signs noted Chest Wall palpation of chest normal Chest Narrative: No bony deformity or crepitance Resp Resp Narrative: Patient is tachypneic and breath sounds are diminished throughout with rhonchi noted in the bilateral lower lobes right greater than left Cardio regular rhythm Rate: tachycardic and other Other Details: Tachycardic rate with regular rhythm Radial and carotid pulses are equal and symmetric GI non-tender, non-distended and no masses GI Narrative: Abdomen is soft nontender and nondistended with hyperactive bowel sounds Patient has an ostomy in place in the right lower abdomen that is draining brownstool No pulsatile mass No rigidity or peritoneal signs Auscultation: hyperactive bowel sounds Palpation: soft Narrative: Suprapubic catheter is in place. At the insertion site into the skin there is surrounding erythema with mild purulent discharge and there is extension of the erythema into the base of the penis. However there is no obvious abscess formation palpated no lymphangitic streaking or crepitance No obvious overlying soft tissue changes to suggest Naa's gangrene. Extremity normal to inspection Extremity Narrative: No asymmetric edema no pitting edema negative Homans' sign bilaterally Neuro CN's II-XII intact bilaterally Neuro Narrative: Patient is awake and alert to person and place but disoriented to time Per this is not his baseline mental status Otherwise he does not have any focal neurologic deficit other than the mild disorientation for which he received NIH stroke scale score of 1. Sensorium / Orientation: alert Psych Psych Narrative: Patient has a depressed/flat affect Mood & Affect: depressed Skin Skin Narrative: Patient has excoriation along the lower abdomen consistent with skin breakdown from colostomy There is also the soft tissue changes along the insertion of the suprapubic catheter and base of the penis as documented above Patient has superficial abrasion to the left anterior knee without secondary findings to suggest overlying cellulitis abscess or septic joint. MDM MDM MDM Narrative Medical decision making narrative: Patient presented to the ER afebrile and was hypertensive and tachycardic as well as hypoxic with a room air pulse ox in the mid 80s. He reportedly wears CPAP at night secondary to ALEJANDRO but does not have any need for supplemental oxygen at baseline. With patient and reporting fatigue myalgias headache and now intermittent confusion there is high likelihood for an infectious process causing his symptoms such as influenza COVID or RSV versus pneumonia versus atypical UTI. As his only finding no confusion on initial evaluation hisdisorientation to time I do not feel that there is need to activate a stroke alert or perform a CTA of his head. However because hypoxia could be due to pneumonia versus pulmonary embolus versus congestive heart failure I did elect to initially start with a chest x-ray which showed changes concerning for infection versus vascular congestion. A CTA was then obtained which revealed nosign of PE or dissection but changes consistent with infiltrate and pleural effusion. As patient has a known history of CAD and is hypoxic this could be atypical presentation for ACS so an EKG was ordered upon arrival as well. This showed diffuse ST segment depression and T wave inversion which is markedly different from EKG from January 2024. However the patient is not complaining of chest pain. The EKG was sent to the machine plate stacker Dr. Smith who reviewed the EKGs and agrees this is not a STEMI but most likely demand ischemiafrom whatever is causing his hypoxia. However because he has a known history ofCAD he does recommend nitro aspirin Plavix and heparin if the troponin is elevated. The patient's initial troponin was up at 405 and therefore a heparin bolus and drip were ordered. As he does have soft tissue changes to the lower abdomen and suprapubic region with concern for potential abscess CT of the abdomen and pelvis was obtained on top the CT of the chest and a urine sample was also obtained based on his history of recent admission in August of this year for complicated UTI. The patient had an echocardiogram in May 2024 which showed normal ejection fraction and no signs of congestive heart failure so therefore with exam and workup indicating this is most likely infectious in nature he was started on 30 mL/kg fluid bolus for septic protocol and vancomycinand Zosyn were started as well. However the patient's proBNP came back elevatedat about 1999 and his CTA revealed changes more consistent with pleural effusionand volume overload and therefore after discussion with the hospitalist it was felt that the sepsis fluid resuscitation was causing more harm at this point andthe fluid was stopped under 1 L. He was given a dose of 40 mg IV Lasix secondary to the pleural effusion and volume overload and placed on BiPAP as well. Following this he was placed in the ICU for continued monitoring of his UTI with sepsis and non-STEMI History & Record Review Discussion w/independent historian: Patient and Significant other Lab Data Attestation: I reviewed the patient's lab results. Labs: Laboratory Results - last 24 hr 10/10/24 10/10/24 01:37 03:18 WBC 11.3 H RBC 4.25 L Hgb 12.4 L Hct 37.4 L MCV 88.0 MCH 29.2 MCHC 33.2 RDW Std Deviation 46.3 H RDW Coeff of Maia 14.5 Plt Count 259 MPV 10.0 Immature Gran % (Auto) 0.400 Neut % (Auto) 87.2 H Lymph % (Auto) 5.4 L Ford % (Auto) 6.6 Eos % (Auto) 0.2 Baso % (Auto) 0.2 Absolute Neuts (auto) 9.9 H Absolute Lymphs (auto) 0.61 L Nucleated RBC % 0 PT 14.0 INR 1.1 APTT 58.1 H Sodium 141 Potassium 4.3 Chloride 100 Carbon Dioxide 22.3 Anion Gap 18 H BUN 26 H Creatinine 1.39 H Estim Creat Clear Calc 48.87 L Est GFR (MDRD) Non-Af 56 L BUN/Creatinine Ratio 18.4 Glucose 80 Lactic Acid 4.4 H* Calcium 9.8 Magnesium 1.6 Total Bilirubin 0.48 Direct Bilirubin 0.22 AST 80 H ALT 27 Alkaline Phosphatase 103 Ammonia 12.6 L Troponin T High Sens 409 H* NT pro BNP II 2932 H Total Protein 8.0 Albumin 4.1 Globulin 3.9 Urine Color Yellow Urine Clarity Cloudy Urine pH 5.0 Ur Specific [place] 1.015 Urine Protein 100 H Urine Glucose (UA) Normal Urine Ketones Negative Urine Occult Blood 150 H Urine Nitrite Positive H Urine Bilirubin Negative Urine Urobilinogen Normal Ur Leukocyte Esterase 500 H Urine RBC 0-5 SEEN Urine WBC 25-50 SEEN Ur Squamous Epith Cells 0 SEEN Urine Bacteria 2+ Urine Mucus 0 SEEN ABG Data ABG results: ABG 10/10/24 10/10/24 01:52 03:48 Specimen Type MYLES ART Sample Site Not entered L Radial pH 7.31 L Bicarbonate Actual 21.9 L Total CO2 23 Base Excess -4 L O2 Saturation 92 L O2 % 6.0 85.0 ABG pCO2 43.9 ABG pO2 72 L Anthony Test Positive VBG pH 7.39 VBG pO2 18 L* VBG HCO3 27 H VBG Total CO2 28 VBG O2 Sat (Calc) 25 L VBG Base Excess 2 POC Mix VBG pCO2 Pt Tmp 44.8 O2 Delivery Device Cannula AIRVO Vent Mode Not entered Crit Call To/Read Back Yes Blood Gas Notified Whom andes Blood Gas Notified Time 01:54:30 Clinical Comments AIRVO 55L 85% Radiography Diagnostic Testing: Clinical Impression(s) from Imaging Studies Chest X-Ray 10/10/24 02:00 IMPRESSION: There is now bilateral perihilar ill-defined opacities with a lower zone predominance and suggestion of possible subtle septal lines which may represent pulmonary edema within inflammatory or infectious process not excluded, clinically correlate. No focal consolidative change or evidence of pleural effusion identified.. Reading Location: [id number] Chest CTA 10/10/24 02:05 IMPRESSION: Motion artifact limits the evaluation. No evidence of filling defect to suggestpulmonary embolism. No large central or hilar saddle embolism. Overall findings are most suggestive of pulmonary edema, possible congestive heart failure, clinically correlate with small bilateral pleural effusions and adjacent areas of passive partial appearing collapse of the adjacent lower lobes. Can not entirely exclude a developing infectious process, clinically correlate. One or more dose reduction techniques were used (e.g., Automated exposure control, adjustment of the mA and/or kV according to patient size, use of iterative reconstruction technique). Reading Location: [facility] Abdomen/Pelvis CT 10/10/24 02:10 IMPRESSION: No evidence of acute intra-abdominal process. Suprapubic catheter in place within a collapsed bladder as above. No associatedabscess or soft tissue gas identified. Bilateral ventral ostomies as above. No obstructive process, free air or free fluid. One or more dose reduction techniques were used (e.g., Automated exposure control, adjustment of the mA and/or kV according to patient size, use of iterative reconstruction technique). Reading Location: [facility] Chest x-ray as interpreted by the emergency medicine physician reveals bilateralopacities right greater than left concerning for developing pneumonia with changes showing mild increased vascular congestion Critical Care Time Critical Care Time: Yes Critical care time (excluding procedures): Discussing w/Patient &/or Family/CareGiver, Discussing w/Consultants and - (Critical care time of 37 minutes) Discharge Plan Triage Chief Complaint: Confusion Other Complaint: Nausea/Vomiting ED Provider: Ross Crump Dx/Rx/DC Orders Clinical Impression: Sepsis, Type 2 diabetes mellitus, UTI (urinary tract infection), Acute respiratory failure with hypoxia, Non-ST elevated myocardial infarction (non-STEMI), Acute kidney injury, Pleural effusion Prescriptions: No Action insulin glargine-yfgn [Semglee(insulin glarg-yfgn)Pen] 100 unit/mL (3 mL) insulin pen 50 unit subcut BID atorvastatin 20 mg tablet 20 mg PO QDAY aspirin 81 MG tablet,chewable 81 mg PO DAILY insulin lispro [Humalog KwikPen Insulin] 100 unit/mL insulin pen 1 sliding scale dose SC TIDCM Protocol: 6. Sliding Scale Insulin Custom Condition: mg/dl range Dose/Route: Number of Units Condition: 0-200 Dose/Route: 0 Condition: 201-250 Dose/Route: 2 Condition: 251-300 Dose/Route: 4 Condition: 301-350 Dose/Route: 6 Condition: 351-400 Dose/Route: 8 Condition: 401-450 Dose/Route: 10 Condition: 451-500 Dose/Route: 12 Condition: 500+ Dose/Route: 14 Condition: 501+ Dose/Route: CALL MD Protocol Text: INJECT 4 UNITS SUBCUTANEOUSLY ALONG WITH SLIDING SCALE THREE TIMES A DAY AT 0730, 1130, AND 1630 duloxetine 60 MG capsule,delayed release(DR/EC) 30 mg PO DAILY Qty: 30 1RF amlodipine 10 mg tablet 10 mg PO DAILY melatonin 3 mg tablet 3 mg PO QHS simethicone 125 mg tablet,chewable 125 mg PO 4X/DAY PRN (Reason: abdominal distention) tamsulosin [Flomax] 0.4 mg capsule 0.8 mg PO QHS Tums 300 mg (750 mg) tablet,chewable 300 mg PO TID PRN (Reason: dyspepsia) Tennga Saline 0.65 % aerosol,spray 2 spray intranasal Q4H PRN (Reason: dry nasal passages) Rx Instructions: while awake carvedilol 6.25 mg Tablet 6.25 mg PO BID Qty: 0 0RF metformin 500 mg tablet extended release 24 hr 500 mg PO BID gabapentin 300 mg capsule 300 mg PO DAILY potassium chloride [Klor-Con M20] 20 mEq tablet,ER particles/crystals 20 meq PO DAILY pantoprazole 40 mg tablet,delayed release (DR/EC) 40 mg PO DAILY sodium chloride 0.9 % Parenteral Solution 100 ea IV .continuous acetaminophen 325 mg capsule 650 mg PO Q6H PRN (Reason: pain) clopidogrel 75 mg tablet 75 mg PO DAILY Qty: 90 3RF Primary Care Provider: Kendy Modi Referrals: Kendy Modi MD [Primary Care Provider] - Print Language: Djiboutian Disposition Disposition: Acute Care Hospital [facility] What to do if you have Problems For any increased pain, shortness of breath, bleeding, nausea or vomiting, chestpain, or any unexpected problems, contact your Primary Care Provider. Call [facility] ([phone]) or report to the closest Emergency Room. Call 911 if necessary. 03/06/25 0405 <Electronically signed by Ross Crump DO> Cosigner Signature (if applicable): CC: Dr. Kendy Modi MD ~ Signed [facility] Work Phone: 1(928) 602-446603-06-2025 Radiology Diagnostic study [facility]03-06-2025 Radiology Diagnostic study [facility]03-06-2025 Radiology Diagnostic study [facility] 09-27-2024 Telephone encounter Note* Telephone Encounter - Everardo Yusuf APRN.CNP - 09/27/2024 11:41 AM EST Please advise pt. to discuss with PCP for refill. Everardo Yusuf APRN.ARTI [facility] Work Phone: 1(292) 505-224602-21-2025 Miscellaneous Notes* Telephone Encounter - Everardo Yusuf APRN.CNP - 09/27/2024 11:41 AM EST Please advise pt. to discuss with PCP for refill. Everardo Yusuf APRN.CNP * Telephone Encounter - Jazmine Pang LPN - 09/20/2024 2:26 PM EST Last OV here was 06/21/2023 and has no follow up scheduled here. Jazmine Pang LPN documented [facility]25 Telephone encounter Note * Telephone Encounter - Jazmine Pang LPN - 09/20/2024 2:26 PM EST Last OV here was 06/21/2023 and has no follow up scheduled here. Jazmine Pang LPN [facility]02-11-2025 Telephone encounter Note* Telephone Encounter - Bozena Faulkner LPN - 09/17/2024 10:38 AM EST Faxed orders signed by Kenzie Miles APRN, CNP, DNP to [facility]. Bozena Faulkner LPN [facility]02-11-2025 Miscellaneous Notes* Telephone Encounter - Bozena Faulkner LPN - 09/17/2024 10:38 AM EST Faxed orders signed by Kenzei Miles APRN, CNP, DNP to [facility]. Bozena Faulkner LPN * Telephone Encounter - Kenzie Drew APRN.CNP, DNP - 09/16/2024 2:26 PM EST Order signed - please fax back. Kenzie Drew APRN.CNP, DNP * Telephone Encounter - Bozena Faulkner LPN - 09/13/2024 4:07 PM EST Received order for that needs signed for change of catheter (SPT) from [facility]. Provided in Kenzie Drew CNP, DNP to sign on next clinic day. Bozena Faulkner LPN documented in [facility]Sal[facility]02-10-2025 Telephone encounter Note * Telephone Encounter - Kenzie Drew APRN.CNP, DNP - 09/16/2024 2:26 PM EST Order signed - please fax back. Kenzie Drew APRN.CNP, DNP [facility]02-07-2025 Telephone encounter Note* Telephone Encounter - Bozena Faulkner LPN - 09/13/2024 4:07 PM EST Received order for that needs signed for change of catheter (SPT) from [facility]. Provided in Kenzie Drew, ARTI, DNP to sign on next clinic day. Bozena Faulkner LPN [facility]02-04-2025 Telephone encounter Note* Telephone Encounter - Dionne Clinton RN - 09/10/2024 9:49 AM EST Called and left message that [facility]. Sent Orders, OV notes, and Demographics to [facility] at [phone], and [facility] fax# [phone], both fax confirmations received. I called and advised I faxed orders to both agencies. Advised to call if neither agency reaches out. [facility]02-04-2025 Miscellaneous Notes* Telephone Encounter - Dionne Clinton RN - 09/10/2024 9:49 AM EST Called and left message that [facility]. Sent Orders, OV notes, and Demographics to [facility] at [phone], and [facility] fax# [phone], both fax confirmations received. I called and advised I faxed orders to both agencies. Advised to call if neither agency reaches out. * Telephone Encounter - Edgardo Hurtado PSS - 09/09/2024 2:29 PM EST Thank you for the referral of your patient to [facility]. At this time, we are at capacity and are unable to accept your patient. In order to help your patient receive quality home care, we have included reputable agencies that service this area: [facility] [phone] or [facility] [phone]. Please contact this agency and they will work with your patient to arrange timely services. Thank you, TOSIN Eckert 09/09/2024 2:29 PM documented in this encounterSalem [facility]02-03-2025 Telephone encounter Note * Telephone Encounter - Edgardo Hurtado PSS - 09/09/2024 2:29 PM EST Thank you for the referral of your patient to [facility]. At this time, we are at capacity and are unable to accept your patient. In order to help your patient receive quality home care, we have included reputable agencies that service this area: [facility] [phone] or [facility] [phone]. Please contact this agency and they will work with your patient to arrange timely services. Thank you, TOSIN Eckert 09/09/2024 2:29 PM [facility]02-03-2025 Instructions* Patient Instructions* Kenzie Drew APRN.CNP, DNP - 09/09/2024 2:09 PM EST Follow up with Kenzie Drew APRN.CNP, DNP in 3 months SPT Will need changed in 6 weeks. 18 Tristanian catheter. Home health orders placed. Return to the clinic or seek care at [facility] for any worsening signs or symptoms: such as fevers, chills, worsening pain, gross blood in urine or worsening urinary symptoms. For severe symptoms seek care at the closest ER. Plan of care, medicaiton side effects and management reviewed with patient. Healthy Habits: Recommend regular physical activity, nutrition and healthy eating habits. Consume a variety of foods every day focusing on fruits, vegetables and lean meats). Eat foods low in fat, saturated fat and cholesterol. Eat a limited amount of salt and sodium. Drink adequate amounts of water and limit sugary drinks. Exercise portion control in meal selection. Establish a mindset of a wellness approach to health. Thank you for allowing me to provide your care today. I look forward to seeing you again and maintaining your health. Kenzie Drew APRN.LORRIE CHI documented in this encounterSalem [facility]02-03-2025 History of Present illness Narrative* Kenzie Drew APRN.LORRIE CHI - 09/09/2024 1:30 PM EST [facility] MALE PATIENT - HISTORY AND PHYSICAL EXAMINATION PATIENT: Isaias Vega (68 year old) PCP: Kendy Modi MD CHIEF COMPLAINT: chronic urinary retention and had a recent suprapubic catheter placement by IR. HISTORY OF PRESENT ILLNESS: 68 year old year old male with chronic urinary retention and had a recent suprapubic catheter placement by IR. Past medical Hx: 2 CVA with left-sided hemiplegia, diabetes, skilled nursing anticoag - Eliquis, colorectal cancer, ileostomy for 3 years, LASHONDA, HTN, HLD, GERD, ALEJANDRO, RLS, MDD Urology hx: In LTCF in [place]. Had a stroke in 2008 and 2011. Using a walker since 2019, and in November had SBO that placed him in the hospital. Failed TOV x3. Was placed on Flomax which has not made a differencewith TOV. Has chronic mackenzie in place. Now nonambulatory due to chronic medical conditions and recent hospitalization. Performing rehab. Seen by Dr. Barfield in May 2025 for urinary retention. UDS completed showing lack of mobility andsmall volume bladder, do not recommend WINTERS procedure, as he would likely develop worsening incontinence. Discussed chronic Mackenzie vs SPT. Do not recommend CIC given small volume bladder. SPT placed on 07/29/[address] Gonzalez. Today: Here for 1st change SPT exchange. Was in the hospital last week. Was not changed at that time. Patient Entered Questionnaires: PROMIS Global Health 12/10/2015 07/26/2020 09/08/2024 PROMIS Global Health Scale Physical Health Percentile 2 4 7 Mental Health Percentile 2 5 9 Percentiles provide an indication of how the patient's score ranks in relation to the general population. Higher percentile rankings indicate better function/quality of life. 50th percentile is the average of the general population and indicates half of respondents had a worse score. 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 PAST SURGICAL HISTORY Procedure Laterality Date ANGIOPLASTY CAROTID ARTERY S&I PC Rt side CABG (5) VENOUS GRAFTS & ARTERIAL GRAFT(S) 2008 CC CORONARY STENT 01/03/15 EXCISION TONSIL LESIONS BILATERAL HERNIA REPAIR HX PAST SURGICAL HISTORY OF 2009 RCEA PICC LINE INSERT/CONSULT 12/07/2023 REVSC OPN/PRG FEM/POP W/ANGIOPLASTY [facility] Right 07-01-15 REVSC OPN/PRG FEM/POP W/ANGIOPLASTY [facility] 08-14-15 REVSC OPN/PRQ TIB/DIANNA W/ANGIOPLASTY [facility] Right 07-01-15 REVSC OPN/PRQ TIB/DIANNA W/ANGIOPLASTY [facility] 08-14-15 Social History Tobacco Use Smoking status: Never Passive exposure: Never Smokeless tobacco: Never Vaping Use Vaping status: Never Used Substance Use Topics Alcohol use: No Drug use: No FAMILY HISTORY Problem Relation Age of Onset Diabetes Mother Cancer Mother 40 breast Coronary Artery Disease Father Hypertension Father Lipids Father Cancer Father 57 leukemia MEDICATIONS: Current Outpatient Medications Medication Sig diphenoxylate-atropine (LOMOTIL) 2.5-0.025 mg per tablet Take 1 tablet by mouth four times a day asneeded for diarrhea (high ostomy output) for up to 30 days. tamsulosin (FLOMAX) 0.4 mg Take 0.8 mg by mouth once daily. clopidogrel (PLAVIX) 75 mg tablet Take 1 tablet by mouth once daily. acetaminophen (TYLENOL) 325 mg tablet Take 2 tablets by mouth every 6 hours. amLODIPine (NORVASC) 10 mg tablet Take 1 tablet by mouth once daily. aspirin 81 mg chewable tablet Take 1 tablet by mouth once daily. carvedilol (COREG) 12.5 mg tablet Take 1 tablet by mouth two times a day. dextrose (TRUEPLUS) 15 gram/32 mL oral gel Take 32 mL by mouth as needed. DULoxetine (CYMBALTA) 60 mg capsule Take 1 capsule by mouth daily at bedtime. insulin glargine 100 unit/mL (3 mL) Inject 30 Units subcutaneously every morning. insulin lispro 100 unit/mL injection Inject 3 Units subcutaneously with meals. ipratropium-albuterol (DUONEB) 0.5 mg-3 mg(2.5 mg base)/3 mL nebu Inhale 3 mL as instructed every 6hours as needed for wheezing/shortness of breath. (Patient not taking: Reported on 06/04/2024) labetalol (NORMODYNE) 5 mg/mL injection Inject 1 mL intravenously every 4 hours as needed (SBP >160 only if HR < 90). (Patient not taking: Reported on 06/04/2024) lidocaine (SALONPAS) 4 % patch Apply 1 Patch as directed once daily. melatonin 3 mg tablet Take 2 tablets by mouth one time only for 1 dose. OLANZapine orally disintegrating (ZYPREXA ZYDIS) 5 mg disintegrating tablet Take 0.5 tablets by mouth every 8 hours as needed. ondansetron, PF, (ZOFRAN) 4 mg/2 mL soln Inject 4 mg intravenously every 6 hours as needed. (Patient not taking: Reported on 06/04/2024) pantoprazole DR (PROTONIX) 40 mg tablet Take 1 tablet by mouth daily at 6 am. piperacillin-tazobactam (ZOSYN) 3.375 gram/50 mL in dextrose (iso-osmotic) Inject 50 mL intravenously every 6 hours. Patient should start on January 01, 2024. (Patient not taking: Reported on 06/04/2024) rosuvastatin (CRESTOR) 40 mg tablet Take 1 tablet by mouth daily at bedtime. zinc oxide-cod liver oil (DESITIN 40%) 40 % paste Apply 1 application to affected area as needed. No current facility-administered medications for this visit. LABS: GLUCOSE UA (POCT) 250 01/15/2020 BILIRUBIN UA (POCT) Negative 01/15/2020 KETONE UA (POCT) Negative 01/15/2020 SPECIFIC GRAVITY UA (POCT) 1.025 01/15/2020 HEMOGLOBIN/BLOOD UA (POCT) Negative 01/15/2020 PH UA (POCT) 6.0 01/15/2020 PROTEIN UA (POCT) Negative 01/15/2020 UROBILINOGEN UA (POCT) 0.2 01/15/2020 NITRITE UA (POCT) Negative 01/15/2020 LEUKOCYTES UA (POCT) Negative 01/15/2020 COLOR UA (POCT) Yellow 01/15/2020 CLARITY UA (POCT) Clear 01/15/2020 Creatinine Creatinine Date Value Ref Range Status 12/29/2023 0.69 (L) 0.73 - 1.22 mg/dL Final 12/28/2023 0.67 (L) 0.73 - 1.22 mg/dL Final 12/28/2023 0.69 (L) 0.73 - 1.22 mg/dL Final 12/27/2023 0.65 (L) 0.73 - 1.22 mg/dL Final PSA PSA Screening (ng/mL) Date Value 11/28/2013 0.8 IMAGING: No results found. Review of Systems: PAIN ASSESSMENT: CURRENTLY HAVING NO PAIN GENERAL: No weight loss, malaise or fevers GI: No nausea, vomiting MUSCULOSKELETAL: Negative for generalized joint pain SKIN: Negative for rash HEMATOLOGY/LYMPHOLOGY: Negative for swollen nodes All other systems reviewed and noncontributory PHYSICAL EXAMINATION: The sensitive examination was discussed with the Patient or Patient's Authorized Shipping And Receiving. Asapplicable, any other physician, advance practice provider, medical student, or other health professional student that will be observing or involved in the sensitive examination for educational or training purposes was discussed with the Patient or Authorized Shipping And Receiving. The Patient or Authorized Shipping And Receiving has agreed to proceed with the sensitive examination. (Sensitive examination includes inspection and/or palpation of the breasts, pelvis, prostate and anorectal regions) GENERAL: alert, no distress, normal affect RESPIRATORY: normal effort ABD: Abd is soft. Skin and SPT site is clean and nonreddened. GENITAL: - PENIS: circumcised, no lesions. - SCROTUM: no rashes, no edema EXTREMITIES: normal SKIN: normal NEUROLOGIC: normal ASSESSMENT and PLAN 1. Chronic suprapubic catheter (HCC) - ICD9: V44.50, ICD10: Z93.59 68y/o male s/p stroke Seen by Dr. Barfield in May 2025 for urinary retention. UDS completed showing lack of mobility and small volume bladder, do not recommend WINTERS procedure, as he would likely develop worsening incontinence. Discussed chronic Mackenzie vs SPT. Do not recommend CIC given small volume bladder. SPT placed on 07/29/[address] Gonzalez. SPT Procedure: Suprapubic tube removal Catheter removed without difficulty. Sutures were not adhered to skin. Area cleansed with betadine and rinsed with water, 4x4 dressing applied. S/P first change 18 Fr cath placed and flushed with 60 cc of SW. easily flushed. Balloon inflated to 10cc. Adhered to thigh. Will need changed in 6 weeks. Plan: Follow-up with Urology in 3 months RTC sooner for any SPT issues or signs of infection. - SUPRAPUBIC TUBE CHANGE - NON-[facility] I spent a total of 35 minutes on the date of the service which included preparing to see the patient, [id number] patient care, completing clinical documentation, performing a medically appropriate examination, counseling and educating the patient/family/caregiver and ordering medications, tests, or procedures. Kenzie Drew DNP, ARTI Department of Urology [facility] documented in this encounterSalem [facility]02-[facility]-2025 NoteHNO ID: [id number] Author: KENZIE DREW APRN.LORRIE CHI Service: ? Author Type: Nurse Practitioner Type: Progress Notes Filed: 09/09/2024 16:26 Note Text: [facility] MALE PATIENT - HISTORY AND PHYSICAL EXAMINATION PATIENT: Isaias Vega (68 year old) PCP: Kendy Modi MD CHIEF COMPLAINT: chronic urinary retention and had a recent suprapubic catheter placement by IR. HISTORY OF PRESENT ILLNESS: 68 year old year old male with chronic urinary retention and had a recent suprapubic catheter placement by IR. Past medical Hx: 2 CVA with left-sided hemiplegia, diabetes, skilled nursing anticoag - Eliquis, colorectal cancer, ileostomy for 3 years, LASHONDA, HTN, HLD, GERD, ALEJANDRO, RLS, MDD Urology hx: In LTCF in [place]. Had a stroke in 2008 and 2011. Using a walker since 2019, and in November had SBO that placed him in the hospital. Failed TOV x3. Was placed on Flomax which has not made a difference with TOV. Has chronic mackenzie in place. Now nonambulatory due to chronic medical conditions and recent hospitalization. Performing rehab. Seen by Dr. Barfield in May 2025 for urinary retention. UDS completed showing lack of mobility and small volume bladder, do not recommend WINTERS procedure, as he would likely develop worsening incontinence. Discussed chronic Mackenzie vs SPT. Do not recommend CIC given small volume bladder. SPT placed on 07/29/[address] Gonzalez. Today: Here for 1st change SPT exchange. Was in the hospital last week. Was not changed at that time. Patient Entered Questionnaires: PROMIS Global Health 12/10/2015 07/26/2020 09/08/2024 PROMIS Global Health Scale Physical Health Percentile 2 4 7 Mental Health Percentile 2 5 9 Percentiles provide an indication of how the patient's score ranks in relation to the general population. Higher percentile rankings indicate better function/quality of life. 50th percentile is the average of the general population and indicates half of respondents had a worse score. 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 PAST SURGICAL HISTORY Procedure Laterality Date ANGIOPLASTY CAROTID ARTERY CARISA PC Rt side CABG (5) VENOUS GRAFTS AND ARTERIAL GRAFT(S) 2008 CC CORONARY STENT 01/03/15 EXCISION TONSIL LESIONS BILATERAL HERNIA REPAIR HX PAST SURGICAL HISTORY OF 2009 RCEA PICC LINE INSERT/CONSULT 12/07/2023 REVSC OPN/PRG FEM/POP W/ANGIOPLASTY [facility] 07-01-15 REVSC OPN/PRG FEM/POP W/ANGIOPLASTY [facility] 08-14-15 REVSC OPN/PRQ TIB/DIANNA W/ANGIOPLASTY [facility] 07-01-15 REVSC OPN/PRQ TIB/DIANNA W/ANGIOPLASTY [facility] 08-14-15 Social History Tobacco Use Smoking status: Never Passive exposure: Never Smokeless tobacco: Never Vaping Use Vaping status: Never Used Substance Use Topics Alcohol use: No Drug use: No FAMILY HISTORY Problem Relation Age of Onset Diabetes Mother Cancer Mother 40 breast Coronary Artery Disease Father Hypertension Father Lipids Father Cancer Father 57 leukemia MEDICATIONS: Current Outpatient Medications Medication Sig diphenoxylate-atropine (LOMOTIL) 2.5-0.025 mg per tablet Take 1 tablet by mouth four times a day as needed for diarrhea (high ostomy output) for up to 30 days. tamsulosin (FLOMAX) 0.4 mg Take 0.8 mg by mouth once daily. clopidogrel (PLAVIX) 75 mg tablet Take 1 tablet by mouth once daily. acetaminophen (TYLENOL) 325 mg tablet Take 2 tablets by mouth every 6 hours. amLODIPine (NORVASC) 10 mg tablet Take 1 tablet by mouth once daily. aspirin 81 mg chewable tablet Take 1 tablet by mouth once daily. carvedilol (COREG) 12.5 mg tablet Take 1 tablet by mouth two times a day. dextrose (TRUEPLUS) 15 gram/32 mL oral gel Take 32 mL by mouth as needed. DULoxetine (CYMBALTA) 60 mg capsule Take 1 capsule by mouth daily at bedtime. insulin glargine 100 unit/mL (3 mL) Inject 30 Units subcutaneously every morning. insulin lispro 100 unit/mL injection Inject 3 Units subcutaneously with meals. ipratropium-albuterol (DUONEB) 0.5 mg-3 mg(2.5 mg base)/3 mL nebu Inhale 3 mL as instructed every 6 hours as needed for wheezing/shortness of breath. (Patient not taking: Reported on 06/04/2024) labetalol (NORMODYNE) 5 mg/mL injection Inject 1 mL intravenously every 4 hours as needed (SBP > 160 only if HR < 90). (Patient not taking: Reported on 06/04/2024) lidocaine (SALONPAS) 4 % patch Apply 1 Patch as directed once daily. melatonin 3 mg tablet Take 2 tablets by mouth one time only for 1 dose. OLANZapine orally disintegrating (ZYPREXA ZYDIS) 5 mg disintegrating tablet Take 0.5 tablets by mouth every 8 hours as needed. ondansetron, PF, (ZOFRAN) 4 mg/2 mL soln Inject 4 mg intravenously every 6 hour (more content not included)...[facility]01-22-2025 Note [facility]01-19-2025 Evaluation note* Diagnosis Onset Date Resolution Status Admit Date Acute febrile illness resolved Aug 8:42pm Acute UTI resolved August 25, 2024 8:42pm Complicated urinary tract infection resolved August 25 8:42pm Elevated lactic acid level resolved August 25, 2024 8:42pm Acidosis, lactic acute October 4:04am Acute kidney injury acute October 10, 2024 4:04am Acute respiratory failure with hypoxia acute October 10, 2024 4:04am Combined systolic and diastolic congestive heart failure acute October 10, 2024 4:04am Non-ST elevated myocardial infarction (non-STEMI) acute October 4:04am Sepsis acute October 10 4:04am UTI (urinary tract infection) acute October 10, 2024 4:04am Coronary artery disease chronic M arch 2024 4:04am [facility] Work Phone: 1(115) 580-611601-19-2025 Evaluation note* Diagnosis Onset Date Resolution Status Admit Date Acute febrile illness resolved Aug 8:42pm Acute UTI resolved August 25, 2024 8:42pm Complicated urinary tract infection resolved August 25 8:42pm Elevated lactic acid level resolved August 25, 2024 8:42pm Coronary artery disease chronic M arch 2024 4:04am Acidosis, lactic resolved October 4:04am Acute kidney injury resolved October 10, 2024 4:04am Acute respiratory failure with hypoxia resolved October 10, 2024 4:04am Combined systolic and diastolic congestive heart failure resolved October 10, 2024 4:04am Non-ST elevated myocardial infarction (non-STEMI) resolved October 4:04am Sepsis deleted October 10 4:04am UTI (urinary tract infection) delete d October 10, 2024 4:04am [facility] Work Phone: 1(746) 851-519201-19-2025 Evaluation note* Diagnosis Onset Date Resolution Status Admit Date Acute febrile illness resolved Aug 8:42pm Acute UTI resolved August 25, 2024 8:42pm Complicated urinary tract infection resolved August 25 8:42pm Elevated lactic acid level resolved August 25, 2024 8:42pm Coronary artery disease chronic M arch 2024 4:04am Acidosis, lactic resolved October 4:04am Acute kidney injury resolved October 10, 2024 4:04am Acute respiratory failure with hypoxia resolved October 10, 2024 4:04am Combined systolic and diastolic congestive heart failure resolved October 10, 2024 4:04am Non-ST elevated myocardial infarction (non-STEMI) resolved October 4:04am Sepsis deleted October 10 4:04am UTI (urinary tract infection) deleted October 10, 2024 4:04am Diabetes chronic October 30 2:11pm Dyslipidemia chronic October 30, 2024 2:11pm Essential hypertension chronic [facility] 2024 2:11pm H/O coronary artery bypass surgery May 30, 2008 chronic October 30, 2 025 2:11pm History of coronary artery stent placement January 02, 2015 chronic October 30, 2024 2:11pm [facility] Work Phone: 1(313) 289-928101-19-2025 Evaluation note* Diagnosis Onset Date Resolution Status Admit Date Acute febrile illness resolved Aug 8:42pm Acute UTI resolved August 25, 2024 8:42pm Complicated urinary tract infection resolved August 25 8:42pm Elevated lactic acid level resolved August 25, 2024 8:42pm Coronary artery disease chronic [facility] 2024 4:04am Acidosis, lactic resolved October 4:04am Acute kidney injury resolved October 10, 2024 4:04am Acute respiratory failure with hypoxia resolved October 10, 2024 4:04am Combined systolic and diastolic congestive heart failure resolved October 10, 2024 4:04am Non-ST elevated myocardial infarction (non-STEMI) resolved October 4:04am Sepsis deleted October 10 4:04am UTI (urinary tract infection) deleted October 10, 2024 4:04am Diabetes chronic October 30 2:11pm Dyslipidemia chronic October 30, 2024 2:11pm Essential hypertension chronic [facility] 2024 2:11pm H/O coronary artery bypass surgery May 30, 2008 chronic October 30, 2 025 2:11pm History of coronary artery stent placement January 02, 2015 chronic October 30, 2024 2:11pm MADELEINE (acute kidney injury) acute November 24, 2024 10:33pm Pancreatitis acute November 24, 2024 10:33pm Uremia acute November 24 10:33pm [facility] Work Phone: 1([phone]) 653-669701-19-2025 Evaluation note* Diagnosis Onset Date Resolution Status Admit Date Acute febrile illness resolved Aug 8:42pm Acute UTI resolved August 25, 2024 8:42pm Complicated urinary tract infection resolved August 25 8:42pm Elevated lactic acid level resolved August 25, 2024 8:42pm Coronary artery disease chronic M arch 2024 4:04am Acidosis, lactic resolved October 4:04am Acute kidney injury resolved October 10, 2024 4:04am Acute respiratory failure with hypoxia resolved October 10, 2024 4:04am Combined systolic and diastolic congestive heart failure resolved October 10, 2024 4:04am Non-ST elevated myocardial infarction (non-STEMI) resolved October 4:04am Sepsis deleted October 10 4:04am UTI (urinary tract infection) deleted October 10, 2024 4:04am Diabetes chronic October 30 2:11pm Dyslipidemia chronic October 30, 2024 2:11pm Essential hypertension chronic [facility] 2024 2:11pm H/O coronary artery bypass surgery May 30, 2008 chronic October 30, 025 2:11pm History of coronary artery stent placement January 02, 2015 chronic October 30, 2024 2:11pm MADELEINE (acute kidney injury) acute November 24, 2024 10:33pm Nausea & vomiting acute November 062024 10:33pm Pancreatitis acute November 24, 2024 10:33pm Uremia acute November 24 10:33pm [facility] Work Phone: 1(448) 680-156211-27-2024 History of Present illness Narrative* Daniel Galarza MD - 07/03/2024 12:00 PM EST COLORECTAL SURGERY VIRTUAL VISIT FOLLOW UP I have communicated my name and active licensure. The patient's identity and physical location wereverified at the time of this visit. Either the patient or their legal claims service representative has been informed of the risks and benefits of -- and alternatives to -- treatment through a remote evaluation andconsents to proceed with the evaluation remotely. I had a virtual visit with Mr. Vega today for follow up of discussing if he can have a reversal procedure. UPDATED HISTORY: Isaias Vega is a 68 year old male with a history of rectal cancer s/p Robotic APR with L[facility] on 05.26.20 for rectal cancer cT3 cN1 M0. He completed chemoradiation on 08/13/2019, and was restaged with MRI after this. His case was presented to [facility] who recommended ELMA followed by restaging and surgical intervention if needed. He completed ELMA on 02/24/2020. His case was presented to [facility] on 03/25/20, and it was recommended that he proceed with Robotic APR with [facility]. Isaias had a VV to discuss this surgery with Dr Galarza on 04/01/2020, and agreed to proceed. He is s/p lap with end ileostomy creation for cecal necrosis (12/07/[address] Guerrero) c/b mesenteric ischemia require addition ex lap and a bthera (12/18/2023 and 12/20/[address] Forest Kimble). Now proceed with surveillance and is here today to discuss possible ileostomy closure. 06/20/24 OV with Melanie Yang APRN.CLOUD DEVELOPER Last office visit on 06/04/2024 History of Present Illness: Isaias Vega is a 68 year old male that has history of rectal cancer s/p APR and end colostomy (05/26/[address] Galraza), ex lap with end ileostomy creation for cecal necrosis (12/07/[address] Guerrero) c/b mesenteric ischemia require addition ex lap and abthera (12/18/2023 and 12/20/[address] Forest Kimble). The patient presents today with stoma issues. Today he reports: Overall: Well, except for high stoma output Stoma: 6-8 times, thin and watery Bowel regimen:Eating metamucil wafers Appetite Pain: None Wound/s:Healed N/V/F/C: None Assessment and Plan: Isaias Vega is a 68 year old male presents today for increased ileostomy output. The patient is doing well, besides the increased, watery stoma output. The patient reports that he is taking 6 tablets of imodium per day and reports that output did thicken up when taking Metamucil biscuits, but was having difficulty emptying the pouch due to output thickness. Treatment Plan: Add Metamucil to daily regimen If output becomes too thick, decrease imodium and titrate to the preferred consistency Scheduled with Colorectal surgery regarding next surgical steps Add 2-4 oral rehydration solutions, ie: Drip Drop, or Liquid IV, follow the ORS guide provided. UPDATED HISTORY: Isaias Vega is a 68 year old male with PMHx of rectal cancer s/p APR and end colostomy (05/26/2020with Dr. Galarza), ex lap with end ileostomy creation for cecal necrosis (12/07/[address] Guerrero) c/b mesenteric ischemia require addition ex lap and abthera (12/18/2023 and 12/20/[address] Forest Kimble). Patient reports: - He is getting mixture and liquid and solid. - He states it has slowed down quite a bit. He is having a lot of gas - He states now having about 800 ml daily - Bowel medications: Fiber cracker, imodium (4 a day), lomotil (3 tablets daily) - He is doing ok with bag, he is having some leakage at night but with different re-enforcement it is helping he is waiting for new supplies. 06/04/24 OV with Kwame PLAN: Imaging for gallbadder performed at OSH - patient instructed to have this faxed to my office Referral to [facility] to see if patient is a candidate for reversal; also, depending on necessity of cholecystectomy, could consider combo case Continue imodium, add lomotil prn Referral to gut rehab for assistance with ileostomy output 12/02/23 s/p Exploratory laparotomy, Lysis of adhesions, Ileocecal resection , Creation of end ileostomy , Cystoscopy and bilateral ureteral stents (urology) OPERATIVE FINDINGS: Full thickness necrosis of the cecum, with adjacent loops of small bowel and omentum adherent to thick rind on the cecum. No alejandro perforation. Small bowel mobilized out of pelvisand ileocecectomy performed. End ileostomy brought out of right lower quadrant trephine with colonic stump secured to fascia at cephalad aspect of stoma trephine, marked with 2-0 prolene stitch. Surgicel placed on retroperitoneum and Evarrest in deep pelvis for hemostasis, in setting of dual antiplatelet treatment 05/26/20 s/p Robotic abdominoperineal resection with right lateral pelvic lymph node dissection andcreation of an end colostomy and primary closure of the perineal defect. PHYSICAL FINDINGS OF NOTE: General - Normal, healthy, cooperative, in no acute distress Able to interact verbally by video conference Pulmonary - respiratory effort normal Abdominal - Not performed Motor - patient seen sitting with Normal appearing strength and coordination Anorectal exam - Not Performed Medical Decision Making: Assessment Assessment & Diagnosis: Isaias Vega is a 68 year old male here to discuss ileostomy reversal. Data Reviewed: Tests & Documents Reviewed/ordered: Assessment by: Care Center Team, Caregiver I have independently interpreted: n/a I have discussed Isaias Vega's treatment plan and/or results with patient. Treatment plan: After urology plan is completed (SP catheter placement) FU with [facility] for consideration of EI reversal Will need colonoscopy, CEA and CT Abd/pel before reversal I Shira Galarza MD Risk of morbidity, mortality and/or complications of treatment plan: moderate I spent a total of 35 minutes on the date of the service which included preparing to see the patient and [id number] patient care. documented in this encounterSal[facility]11-27-2024 NoteHNO ID: [id number] Author: Daniel GALARZA MD Service: ? Author Type: Physician Type: Progress Notes Filed: 07/03/2024 15:25 Note Text: COLORECTAL SURGERY VIRTUAL VISIT FOLLOW UP I have communicated my name and active licensure. The patient's identity and physical location were verified at the time of this visit. Either the patient or their legal claims service representative has been informed of the risks and benefits of -- and alternatives to -- treatment through a remote evaluation and consents to proceed with the evaluation remotely. I had a virtual visit with Mr. Vega today for follow up of discussing if he can have a reversal procedure. UPDATED HISTORY: Isaias Vega is a 68 year old male with a history of rectal cancer s/p Robotic APR with [facility] on 05.26.20 for rectal cancer cT3 cN1 M0. He completed chemoradiation on 08/13/2019, and was restaged with MRI after this. His case was presented to [facility] who recommended ELMA followed by restaging and surgical intervention if needed. He completed ELMA on 02/24/2020. His case was presented to [facility] on 03/25/20, and it was recommended that he proceed with Robotic APR with [facility]. Isaias had a VV to discuss this surgery with Dr Galarza on 04/01/2020, and agreed to proceed. He is s/p lap with end ileostomy creation for cecal necrosis (12/07/[address] Guerrero) c/b mesenteric ischemia require addition ex lap and abthera (12/18/2023 and 12/20/[address] Forest Kimble). Now proceed with surveillance and is here today to discuss possible ileostomy closure. 06/20/24 OV with Melanie Yang APRN.CLOUD DEVELOPER Last office visit on 06/04/2024 History of Present Illness: Isaias Vega is a 68 year old male that has history of rectal cancer s/p APR and end colostomy (05/26/[address] Galarza), ex lap with end ileostomy creation for cecal necrosis (12/07/[address] Guerrero) c/b mesenteric ischemia require addition ex lap and abthera (12/18/2023 and 12/20/[address] Forest Kimble). The patient presents today with stoma issues. Today he reports: Overall: Well, except for high stoma output Stoma: 6-8 times, thin and watery Bowel regimen:Eating metamucil wafers Appetite Pain: None Wound/s:Healed N/V/F/C: None Assessment and Plan: Isaias Vega is a 68 year old male presents today for increased ileostomy output. The patient is doing well, besides the increased, watery stoma output. The patient reports that he is taking 6 tablets of imodium per day and reports that output did thicken up when taking Metamucil biscuits, but was having difficulty emptying the pouch due to output thickness. Treatment Plan: Add Metamucil to daily regimen If output becomes too thick, decrease imodium and titrate to the preferred consistency Scheduled with Colorectal surgery regarding next surgical steps Add 2-4 oral rehydration solutions, ie: Drip Drop, or Liquid IV, follow the ORS guide provided. UPDATED HISTORY: Isaias Vega is a 68 year old male with PMHx of rectal cancer s/p APR and end colostomy (05/26/[address] Galarza), ex lap with end ileostomy creation for cecal necrosis (12/07/[address] Guerrero) c/b mesenteric ischemia require addition ex lap and abthera (12/18/2023 and 12/20/[address] Forest Kimble). Patient reports: - He is getting mixture and liquid and solid. - He states it has slowed down quite a bit. He is having a lot of gas - He states now having about 800 ml daily - Bowel medications: Fiber cracker, imodium (4 a day), lomotil (3 tablets daily) - He is doing ok with bag, he is having some leakage at night but with different re-enforcement it is helping he is waiting for new supplies. 06/04/24 OV with Kwame PLAN: Imaging for gallbadder performed at OSH - patient instructed to have this faxed to my office Referral to [facility] to see if patient is a candidate for reversal; also, depending on necessity of cholecystectomy, could consider combo case Continue imodium, add lomotil prn Referral to gut rehab for assistance with ileostomy output 12/02/23 s/p Exploratory laparotomy, Lysis of adhesions, Ileocecal resection , Creation of end ileostomy , Cystoscopy and bilateral ureteral stents (urology) OPERATIVE FINDINGS: Full thickness necrosis of the cecum, with adjacent loops of small bowel and omentum adherent to thick rind on the cecum. No alejandro perforation. Small bowel mobilized out of pelvis and ileocecectomy performed. End ileostomy brought out of right lower quadrant trephine with colonic stump secured to fascia at cephalad aspect of stoma trephine, marked with 2-0 prolene stitch. Surgicel placed on retroperitoneum and Evarrest in deep pelvis for hemostasis, in setting of dual antiplatelet treatment 05/26/20 s/p Robotic abdominoperineal resection with right lateral pelvic lymph node dissection and creation of an end colostomy and primary closure of the perineal defect. PHYSICAL FINDINGS OF NOTE: General - Normal, healthy, cooperative, in no acute distress (more content not included)...[facility]11-22-2024 Telephone encounter Note* Telephone Encounter - Flower Villanueva RN - 06/28/2024 2:24 PM EST Flight Line Service Attendant spoke with pt regarding his upcoming visit with Dr Galarza on 07/03. Pt verbalized that he would like to discuss reversal surgery, but is not feeling well and does not know if he can make the hour drive. Appt changed to a virtual appt. [facility]11-22-2024 Miscellaneous Notes* Telephone Encounter - Flower Villanueva RN - 06/28/2024 2:24 PM EST Flight Line Service Attendant spoke with pt regarding his upcoming visit with Dr Galarza on 07/03. Pt verbalized that he would like to discuss reversal surgery, but is not feeling well and does not know if he can make the hour drive. Appt changed to a virtual appt. documented in this encounterSal[facility]11-[facility] Telephone encounter Note * Telephone Encounter - Gregorio Villalobos RN - 06/27/2024 9:44 AM EST [facility] COORD[facility] TELEPHONE ENCOUNTER LVM with call back number after returning pts call [facility]11-21-2024 Miscellaneous Notes* Telephone Encounter - Gregorio Villalobos RN - 06/27/2024 9:44 AM EST [facility] CO[facility] TELEPHONE ENCOUNTER LVM with call back number after returning pts call documented in this encounterSalem [facility]11-[facility] History of Present illness Narrative* Melanie Yang APRN.ARTI - 06/20/2024 4:00 PM EST COLORECTAL SURGERY VIRTUAL VISIT FOLLOW UP I have communicated my name and active licensure. The patient's identity and physical location wereverified at the time of this visit. Either the patient or their legal claims service representative has been informed of the risks and benefits of -- and alternatives to -- treatment through a remote evaluation andconsents to proceed with the evaluation remotely. I had a virtual visit with Mr. Vega today for follow up of stoma output. Last office visit on 06/04/2024 History of Present Illness: Isaias Vega is a 68 year old male that has history of rectal cancer s/p APR and end colostomy (05/26/[address] Galarza), ex lap with end ileostomy creation for cecal necrosis (12/07/[address] Guerrero) c/b mesenteric ischemia require addition ex lap and abthera (12/18/2023 and 12/20/[address] Forest Kimble). The patient presents today with stoma issues. Today She reports: Overall: Well, except for high stoma output Stoma: 6-8 times, thin and watery Bowel regimen:Eating metamucil wafers Appetite Pain: None Wound/s:Healed N/V/F/C: None Assessment and Plan: Isaias Vega is a 68 year old male presents today for increased ileostomy output. The patient is doing well, besides the increased, watery stoma output. The patient reports that he is taking 6 tablets of imodium per day and reports that output did thicken up when taking Metamucil biscuits, but was having difficulty emptying the pouch due to output thickness. Treatment Plan: Add Metamucil to daily regimen If output becomes too thick, decrease imodium and titrate to the preferred consistency Scheduled with Colorectal surgery regarding next surgical steps Add 2-4 oral rehydration solutions, ie: Drip Drop, or Liquid IV, follow the ORS guide provided. UPDATED HISTORY: Isaias Vega is a 68 year old male with PMHx of rectal cancer s/p APR and end colostomy (05/26/2020with Dr. Galarza), ex lap with end ileostomy creation for cecal necrosis (12/07/[address] Guerrero) c/b mesenteric ischemia require addition ex lap and abthera (12/18/2023 and 12/20/[address] Forest Kimble). Patient reports: - He is getting mixture and liquid and solid. - He states it has slowed down quite a bit. He is having a lot of gas - He states now having about 800 ml daily - Bowel medications: Fiber cracker, imodium (4 a day), lomotil (3 tablets daily) - He is doing ok with bag, he is having some leakage at night but with different re-enforcement it is helping he is waiting for new supplies. PHYSICAL FINDINGS OF NOTE: General - Normal, healthy, cooperative, in no acute distress Able to interact verbally by video conference Pulmonary - respiratory effort normal Abdominal - Not performed Motor - patient seen sitting with Normal appearing strength and coordination Anorectal exam - Not Performed Medical Decision Making: Assessment Assessment & Diagnosis: Isaias Vega is a 68 year old male with PMHx of rectal cancer s/p APR and end colostomy (05/26/2020with Dr. Galarza), ex lap with end ileostomy creation for cecal necrosis (12/07/[address] Guerrero) c/b mesenteric ischemia require addition ex lap and abthera (12/18/2023 and 12/20/[address] Forest Kimble). Patient high output is undercontrol with current bowel regimen. Patient to continue and reach out with any issues. Melanie Yang APRN.CNP Risk of morbidity, mortality and/or complications of treatment plan: low I spent a total of 18 minutes on the date of the service which included preparing to see the patient, [id number] patient care, completing clinical documentation, obtaining and/or reviewing separately obtained history, performing a medically appropriate examination, counseling and educating the pat ient/family/caregiver, and communicating results to the patient/family/caregiver. documented in this encounterSalem City Hospital11-14-2024 NoteHNO ID: [id number] Author: MELANIE YANG APRN.CNP Service: ? Author Type: Nurse Practitioner Type: Progress Notes Filed: 06/20/2024 16:08 Note Text: COLORECTAL SURGERY VIRTUAL VISIT FOLLOW UP I have communicated my name and active licensure. The patient's identity and physical location were verified at the time of this visit. Either the patient or their legal claims service representative has been informed of the risks and benefits of -- and alternatives to -- treatment through a remote evaluation and consents to proceed with the evaluation remotely. I had a virtual visit with Mr. Vega today for follow up of stoma output. Last office visit on 06/04/2024 History of Present Illness: Isaias Vega is a 68 year old male that has history of rectal cancer s/p APR and end colostomy (05/26/[address] Galarza), ex lap with end ileostomy creation for cecal necrosis (12/07/[address] Guerrero) c/b mesenteric ischemia require addition ex lap and abthera (12/18/2023 and 12/20/[address] Forest Kimble). The patient presents today with stoma issues. Today She reports: Overall: Well, except for high stoma output Stoma: 6-8 times, thin and watery Bowel regimen:Eating metamucil wafers Appetite Pain: None Wound/s:Healed N/V/F/C: None Assessment and Plan: Isaias Vega is a 68 year old male presents today for increased ileostomy output. The patient is doing well, besides the increased, watery stoma output. The patient reports that he is taking 6 tablets of imodium per day and reports that output did thicken up when taking Metamucil biscuits, but was having difficulty emptying the pouch due to output thickness. Treatment Plan: Add Metamucil to daily regimen If output becomes too thick, decrease imodium and titrate to the preferred consistency Scheduled with Colorectal surgery regarding next surgical steps Add 2-4 oral rehydration solutions, ie: Drip Drop, or Liquid IV, follow the ORS guide provided. UPDATED HISTORY: Isaias Vega is a 68 year old male with PMHx of rectal cancer s/p APR and end colostomy (05/26/[address] Galarza), ex lap with end ileostomy creation for cecal necrosis (12/07/[address] Guerrero) c/b mesenteric ischemia require addition ex lap and abthera (12/18/2023 and 12/20/[address] Forest Kimble). Patient reports: - He is getting mixture and liquid and solid. - He states it has slowed down quite a bit. He is having a lot of gas - He states now having about 800 ml daily - Bowel medications: Fiber cracker, imodium (4 a day), lomotil (3 tablets daily) - He is doing ok with bag, he is having some leakage at night but with different re-enforcement it is helping he is waiting for new supplies. PHYSICAL FINDINGS OF NOTE: General - Normal, healthy, cooperative, in no acute distress Able to interact verbally by video conference Pulmonary - respiratory effort normal Abdominal - Not performed Motor - patient seen sitting with Normal appearing strength and coordination Anorectal exam - Not Performed Medical Decision Making: Assessment Assessment AND Diagnosis: Isaias Vega is a 68 year old male with PMHx of rectal cancer s/p APR and end colostomy (05/26/[address] Galarza), ex lap with end ileostomy creation for cecal necrosis (12/07/[address] Guerrero) c/b mesenteric ischemia require addition ex lap and abthera (12/18/2023 and 12/20/[address] Forest Kimble). Patient high output is undercontrol with current bowel regimen. Patient to continue and reach out with any issues. Melanie Yang APRN.CLOUD DEVELOPER Risk of morbidity, mortality and/or complications of treatment plan: low I spent a total of 18 minutes on the date of the service which included preparing to see the patient, [id number] patient care, completing clinical documentation, obtaining and/or reviewing separately obtained history, performing a medically appropriate examination, counseling and educating the patient/family/caregiver, and communicating results to the patient/family/caregiver.[facility]11-05-2024 Telephone encounter Note* Telephone Encounter - Dionne Clinton RN - 06/11/2024 2:16 PM EST Patient calling to see about how to schedule the IR SPT. I called and left a message on IR Voicemail to help get scheduled. Called patient back and left a message about that I reached out to IR, and gave their number to call back if he misses their call. IR #[phone]. [facility]11-05-2024 Miscellaneous Notes* Telephone Encounter - Dionne Clinton RN - 06/11/2024 2:16 PM EST Patient calling to see about how to schedule the IR SPT. I called and left a message on IR Voicemail to help get scheduled. Called patient back and left a message about that I reached out to IR, and gave their number to call back if he misses their call. IR #[phone]. documented in this encounterSalem City Hospital10-29-2024 Instructions* Patient Instructions* Citlali Mejía APRN.CNP - 06/04/2024 3:15 PM EDT Add Metamucil to daily regimen If output becomes too thick, decrease imodium Scheduled with Colorectal surgery Drink 2-4 oral rehydration solutions, ie: Drip Drop, or Liquid IV, follow the ORS guide provided. documented in this encounterSalem [facility] Hospital10-29-2024 History of Present illness Narrative* Citlali Mejía APRN.CNP - 06/04/2024 3:00 PM EDT COLORECTAL SURGERY June 03, 2024 Isaias Vega 68 year old Chief Complaint: Stoma issues History of Present Illness: Isaias Vega is a 68 year old male that has history of rectal cancer s/p APR and end colostomy (05/26/[address] Galarza), ex lap with end ileostomy creation for cecal necrosis (12/07/[address] Guerrero) c/b mesenteric ischemia require addition ex lap and abthera (12/18/2023 and 12/20/[address] Forest Kimble). The patient presents today with stoma issues. 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 PAST SURGICAL HISTORY Procedure Laterality Date ANGIOPLASTY CAROTID ARTERY S&I PC Rt side CABG (5) VENOUS GRAFTS & ARTERIAL GRAFT(S) 2008 CC CORONARY STENT 01/03/15 EXCISION TONSIL LESIONS BILATERAL HERNIA REPAIR HX PAST SURGICAL HISTORY OF 2009 [facility] PICC LINE INSERT/CONSULT 12/07/2023 REVSC OPN/PRG FEM/POP W/ANGIOPLASTY UNI Right 07-01-15 REVSC OPN/PRG FEM/POP W/ANGIOPLASTY UNI 08-14-15 REVSC OPN/PRQ TIB/DIANNA W/ANGIOPLASTY UNI Right 07-01-15 REVSC OPN/PRQ TIB/DIANNA W/ANGIOPLASTY UNI 08-14-15 Current Outpatient Medications Medication Sig Dispense Refill tamsulosin (FLOMAX) 0.4 mg Take 0.8 mg by mouth once daily. clopidogrel (PLAVIX) 75 mg tablet Take 1 tablet by mouth once daily. acetaminophen (TYLENOL) 325 mg tablet Take 2 tablets by mouth every 6 hours. amLODIPine (NORVASC) 10 mg tablet Take 1 tablet by mouth once daily. aspirin 81 mg chewable tablet Take 1 tablet by mouth once daily. carvedilol (COREG) 12.5 mg tablet Take 1 tablet by mouth two times a day. dextrose (TRUEPLUS) 15 gram/32 mL oral gel Take 32 mL by mouth as needed. DULoxetine (CYMBALTA) 60 mg capsule Take 1 capsule by mouth daily at bedtime. insulin glargine 100 unit/mL (3 mL) Inject 30 Units subcutaneously every morning. insulin lispro 100 unit/mL injection Inject 3 Units subcutaneously with meals. ipratropium-albuterol (DUONEB) 0.5 mg-3 mg(2.5 mg base)/3 mL nebu Inhale 3 mL as instructed every 6hours as needed for wheezing/shortness of breath. labetalol (NORMODYNE) 5 mg/mL injection Inject 1 mL intravenously every 4 hours as needed (SBP >160 only if HR < 90). lidocaine (SALONPAS) 4 % patch Apply 1 Patch as directed once daily. melatonin 3 mg tablet Take 2 tablets by mouth one time only for 1 dose. 2 tablet 0 OLANZapine orally disintegrating (ZYPREXA ZYDIS) 5 mg disintegrating tablet Take 0.5 tablets by mouth every 8 hours as needed. ondansetron, PF, (ZOFRAN) 4 mg/2 mL soln Inject 4 mg intravenously every 6 hours as needed. pantoprazole DR (PROTONIX) 40 mg tablet Take 1 tablet by mouth daily at 6 am. piperacillin-tazobactam (ZOSYN) 3.375 gram/50 mL in dextrose (iso-osmotic) Inject 50 mL intravenously every 6 hours. Patient should start on January 01, 2024. rosuvastatin (CRESTOR) 40 mg tablet Take 1 tablet by mouth daily at bedtime. zinc oxide-cod liver oil (DESITIN 40%) 40 % paste Apply 1 application to affected area as needed. No current facility-administered medications for this visit. ALLERGIES No Known Allergies FAMILY HISTORY Problem Relation Age of Onset Diabetes Mother Cancer Mother 40 breast Coronary Artery Disease Father Hypertension Father Lipids Father Cancer Father 57 leukemia Social History Tobacco Use Smoking status: Never Passive exposure: Never Smokeless tobacco: Never Vaping Use Vaping status: Never Used Substance Use Topics Alcohol use: No Drug use: No Physical Exam: There were no vitals taken for this visit. General Appearance: Well appearing, alert, in no acute distress, well-hydrated, well nourished. Abdomen: Soft, non-distended, not tender. Stoma: End ileostomy in the RLQ:red and moist as viewed through the pouch, thin, brown liquid effluent noted, emptied 225 ml from the pouch End Colostomy in the LLQ: pink and moist, non-function stoma Assessment Assessment and Plan: Isaias Vega is a 68 year old male presents today for increased ileostomy output. The patient is doing well, besides the increased, watery stoma output. The patient reports that he is taking 6 tablets of imodium per day and reports that output did thicken up when taking Metamucil biscuits, but was having difficulty emptying the pouch due to output thickness. Medical Decision Making: Data Reviewed: Tests & Documents Reviewed/ordered: Review of prior notes from [facility] Review of prior operative reports I have discussed Isaias Vega's treatment plan and/or results with the patient and patient's spouse. Treatment Plan: Add Metamucil to daily regimen If output becomes too thick, decrease imodium and titrate to the preferred consistency Scheduled with Colorectal surgery regarding next surgical steps Add 2-4 oral rehydration solutions, ie: Drip Drop, or Liquid IV, follow the ORS guide provided. Risk of morbidity, mortality and/or complications of treatment plan: low Citlali Mejía APRN, ARTI Colorectal Surgery Medical Decision Making: Problems: Moderate: 1+ chronic illnesses with change Data: Unique source(s) for external note(s) reviewed: 2 Risk: Moderate: Drug management Medical Decision Making Level: 4 - Moderate Associated attestation - Melanie Yang APRN.CNP - 06/04/2024 3:39 PM EDT Attending Note I have personally performed a face to face assessment of the patient and have reviewed the ADRIÁN note. I performed a substantive portion of the visit including all aspects of the following. My griggs findings include: Agree with the below. Start fiber go back to imodium follow up in 2 weeks. Other additions or changes: None Signature: Melanie Yang APRN.CNP Date: 06/04/2024 Time: 3:38 PM documented in this encounterSalem City Hospital10-29-2024 NoteHNO ID: [id number] Author: MELANIE YANG APRN.CNP Service: ? Author Type: Nurse Practitioner Type: Progress Notes Filed: 06/04/2024 15:39 Note Text: Attestation signed by Melanie Yang APRN.CNP at 06/04/2024 3:39 PM Attending Note I have personally performed a face to face assessment of the patient and have reviewed the ADRIÁN note. I performed a substantive portion of the visit including all aspects of the following. My griggs findings include: Agree with the below. Start fiber go back to imodium follow up in 2 weeks. Other additions or changes: None Signature: Melanie Yang APRN.CNP Date: 06/04/2024 Time: 3:38 PM COLORECTAL SURGERY June 03, 2024 Isaias Vega 68 year old Chief Complaint: Stoma issues History of Present Illness: Isaias Vega is a 68 year old male that has history of rectal cancer s/p APR and end colostomy (05/26/[address] Galarza), ex lap with end ileostomy creation for cecal necrosis (12/07/[address] Guerrero) c/b mesenteric ischemia require addition ex lap and abthera (12/18/2023 and 12/20/[address] Forest Kimble). The patient presents today with stoma issues. 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 PAST SURGICAL HISTORY Procedure Laterality Date ANGIOPLASTY CAROTID ARTERY CARISA PC Rt side CABG (5) VENOUS GRAFTS AND ARTERIAL GRAFT(S) 2008 CC CORONARY STENT 01/03/15 EXCISION TONSIL LESIONS BILATERAL HERNIA REPAIR HX PAST SURGICAL HISTORY OF 2009 [facility] PICC LINE INSERT/CONSULT 12/07/2023 REVSC OPN/PRG FEM/POP W/ANGIOPLASTY [facility] Right 07-01-15 REVSC OPN/PRG FEM/POP W/ANGIOPLASTY [facility] 08-14-15 REVSC OPN/PRQ TIB/DIANNA W/ANGIOPLASTY [facility] Right 07-01-15 REVSC OPN/PRQ TIB/DIANNA W/ANGIOPLASTY [facility] 08-14-15 Current Outpatient Medications Medication Sig Dispense Refill tamsulosin (FLOMAX) 0.4 mg Take 0.8 mg by mouth once daily. clopidogrel (PLAVIX) 75 mg tablet Take 1 tablet by mouth once daily. acetaminophen (TYLENOL) 325 mg tablet Take 2 tablets by mouth every 6 hours. amLODIPine (NORVASC) 10 mg tablet Take 1 tablet by mouth once daily. aspirin 81 mg chewable tablet Take 1 tablet by mouth once daily. carvedilol (COREG) 12.5 mg tablet Take 1 tablet by mouth two times a day. dextrose (TRUEPLUS) 15 gram/32 mL oral gel Take 32 mL by mouth as needed. DULoxetine (CYMBALTA) 60 mg capsule Take 1 capsule by mouth daily at bedtime. insulin glargine 100 unit/mL (3 mL) Inject 30 Units subcutaneously every morning. insulin lispro 100 unit/mL injection Inject 3 Units subcutaneously with meals. ipratropium-albuterol (DUONEB) 0.5 mg-3 mg(2.5 mg base)/3 mL nebu Inhale 3 mL as instructed every 6 hours as needed for wheezing/shortness of breath. labetalol (NORMODYNE) 5 mg/mL injection Inject 1 mL intravenously every 4 hours as needed (SBP > 160 only if HR < 90). lidocaine (SALONPAS) 4 % patch Apply 1 Patch as directed once daily. melatonin 3 mg tablet Take 2 tablets by mouth one time only for 1 dose. 2 tablet 0 OLANZapine orally disintegrating (ZYPREXA ZYDIS) 5 mg disintegrating tablet Take 0.5 tablets by mouth every 8 hours as needed. ondansetron, PF, (ZOFRAN) 4 mg/2 mL soln Inject 4 mg intravenously every 6 hours as needed. pantoprazole DR (PROTONIX) 40 mg tablet Take 1 tablet by mouth daily at 6 am. piperacillin-tazobactam (ZOSYN) 3.375 gram/50 mL in dextrose (iso-osmotic) Inject 50 mL intravenously every 6 hours. Patient should start on January 01, 2024. rosuvastatin (CRESTOR) 40 mg tablet Take 1 tablet by mouth daily at bedtime. zinc oxide-cod liver oil (DESITIN 40%) 40 % paste Apply 1 application to affected area as needed. No current facility-administered medications for this visit. ALLERGIES No Known Allergies FAMILY HISTORY Problem Relation Age of Onset Diabetes Mother Cancer Mother 40 breast Coronary Artery Disease Father Hypertension Father Lipids Father Cancer Father 57 leukemia Social History Tobacco Use Smoking status: Never Passive exposure: Never Smokeless tobacco: Never Vaping Use Vaping status: Never Used Substance Use Topics Alcohol use: No Drug use: No Physical Exam: There were no vitals taken for this visit. General Appearance: Well appearing, alert, in no acute distress, well-hydrated, well nourished. Abdomen: Soft, non-distended, not tender. Stoma: End ileostom (more content not included)...[facility]10-29-2024 NoteHNO ID: [id number] Author: FOREST KIMBLE MD Service: ? Author Type: Physician Type: Progress Notes Filed: 06/12/2024 16:04 Note Text: GENERAL SURGERY ESTABLISHED PATIENT VISIT Date: June 04, 2024 Time: 1:53 PM Name: Isaias Vega Mr. Vega is here today for followup regarding ostomy Patient came home from [facility] in mid March. He weighed 110lbs upon getting home. Currently, he's 142. Patient is able to eat all foods: candy, fruits, sweets, meat, fish, dairy, cheese. Nothing he can't tolerate. No abdominal pain. Has acid reflux when he lays flat. No nausea. He would like to have ostomy reversed. estimates emptying bag around 6-7 times per day. Around 42 ounces per day. Taking imodium around 6 pills per day. Also taking metamucil crackers, which helps but only temporarily. Hard to do things out of the house due to managing ileostomy output. Legs are still weak, he was working with PT but they are no longer coming. Still has home health nurse who comes and helps with the stoma and checking vitals. Tries to use a walker in the house, currently in a wheelchair for this visit. Chloe was told his gallbladder needs removed by surgeon at OSH He currently has a mackenzie in place. Is considering a suprapubic catheter for urinary retention, has an upcoming appointment with URology. 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 PAST SURGICAL HISTORY: PAST SURGICAL HISTORY Procedure Laterality Date ANGIOPLASTY CAROTID ARTERY CARISA PC Rt side CABG (5) VENOUS GRAFTS AND ARTERIAL GRAFT(S) 2008 CC CORONARY STENT 01/03/15 EXCISION TONSIL LESIONS BILATERAL HERNIA REPAIR HX PAST SURGICAL HISTORY OF 2009 EA PICC LINE INSERT/CONSULT 12/07/2023 REVSC OPN/PRG FEM/POP W/ANGIOPLASTY UNI Right 07-01-15 REVSC OPN/PRG FEM/POP W/ANGIOPLASTY UNI 08-14-15 REVSC OPN/PRQ TIB/DIANNA W/ANGIOPLASTY UNI Right 07-01-15 REVSC OPN/PRQ TIB/DIANNA W/ANGIOPLASTY UNI 08-14-15 FAMILY HISTORY: FAMILY HISTORY Problem Relation Age of Onset Diabetes Mother Cancer Mother 40 breast Coronary Artery Disease Father Hypertension Father Lipids Father Cancer Father 57 leukemia SOCIAL HISTORY: Social History Tobacco Use Smoking status: Never Passive exposure: Never Smokeless tobacco: Never Vaping Use Vaping status: Never Used Substance Use Topics Alcohol use: No Drug use: No MEDICATIONS: Prior to Admission Medications: tamsulosin (FLOMAX) 0.4 mg Take 0.8 mg by mouth once daily. clopidogrel (PLAVIX) 75 mg tablet Take 1 tablet by mouth once daily. acetaminophen (TYLENOL) 325 mg tablet Take 2 tablets by mouth every 6 hours. amLODIPine (NORVASC) 10 mg tablet Take 1 tablet by mouth once daily. aspirin 81 mg chewable tablet Take 1 tablet by mouth once daily. carvedilol (COREG) 12.5 mg tablet Take 1 tablet by mouth two times a day. dextrose (TRUEPLUS) 15 gram/32 mL oral gel Take 32 mL by mouth as needed. DULoxetine (CYMBALTA) 60 mg capsule Take 1 capsule by mouth daily at bedtime. insulin glargine 100 unit/mL (3 mL) Inject 30 Units subcutaneously every morning. insulin lispro 100 unit/mL injection Inject 3 Units subcutaneously with meals. lidocaine (SALONPAS) 4 % patch Apply 1 Patch as directed once daily. OLANZapine orally disintegrating (ZYPREXA ZYDIS) 5 mg disintegrating tablet Take 0.5 tablets by mouth every 8 hours as needed. pantoprazole DR (PROTONIX) 40 mg tablet Take 1 tablet by mouth daily at 6 am. rosuvastatin (CRESTOR) 40 mg tablet Take 1 tablet by mouth daily at bedtime. zinc oxide-cod liver oil (DESITIN 40%) 40 % paste Apply 1 application to affected area as needed. ipratropium-albuterol (DUONEB) 0.5 mg-3 mg(2.5 mg base)/3 mL nebu Inhale 3 mL as instructed every 6 hours as needed for wheezing/shortness of breath. (Patient not taking: Reported on 06/04/2024) labetalol (NORMODYNE) 5 mg/mL injection Inject 1 mL intravenously every 4 hours as needed (SBP > 160 only if HR < 90). (Patient not taking: Reported on 06/04/2024) melatonin 3 mg tablet Take 2 tablets by mouth one time only for 1 dose. ondansetron, PF, (ZOFRAN) 4 mg/2 mL soln Inject 4 mg intravenously every 6 hours as needed. (Patient not taking: Reported on 06/04/2024) piperacillin-tazobactam (ZOSYN) 3.375 gram/50 mL in dextrose (iso-osmotic) Inject 50 mL intravenously every 6 hours. Patient should start on January 01, 2024. (Patient not taking: Reported on 06/04/2024) No current facility-administered medications for this visit. ALLERGIES: ALLERGIES No Known Allergies REVIEW OF SYSTEMS: See HPI PHYSICAL EXAM: BP 147/65 Pulse 78 Ht 168.9 cm (5' 6.5) Wt 64.7 kg (142 lb 10.2 oz) BMI (more content not included)...[facility]10-29-2024 History of Present illness Narrative* Forest Kimble MD - 06/04/2024 1:53 PM EDT GENERAL SURGERY ESTABLISHED PATIENT VISIT Date: June 04, 2024 Time: 1:53 PM Name: Isaias Vega Mr. Vega is here today for followup regarding ostomy Patient came home from [facility] in mid March. He weighed 110lbs upon getting home. Currently, he's 142. Patient is able to eat all foods: candy, fruits, sweets, meat, fish, dairy, cheese. Nothing he can't tolerate. No abdominal pain. Has acid reflux when he lays flat. No nausea. He would like to have ostomy reversed. estimates emptying bag around 6-7 times per day. [id number] ounces per day. Taking imodium around 6 pills per day. Also taking metamucil crackers, which helps but only temporarily. Hard to do things out of the house due to managing ileostomy output. Legs are still weak, he was working with PT but they are no longer coming. Still has home health nurse who comes and helps with the stoma and checking vitals. Tries to use a walker in the house, currently in a wheelchair for this visit. Chloe was told his gallbladder needs removed by surgeon at OSH He currently has a mackenzie in place. Is considering a suprapubic catheter for urinary retention, has an upcoming appointment with URology. 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 PAST SURGICAL HISTORY: PAST SURGICAL HISTORY Procedure Laterality Date ANGIOPLASTY CAROTID ARTERY S&I PC Rt side CABG (5) VENOUS GRAFTS & ARTERIAL GRAFT(S) 2008 CC CORONARY STENT 01/03/15 EXCISION TONSIL LESIONS BILATERAL HERNIA REPAIR HX PAST SURGICAL HISTORY OF 2009 RCEA PICC LINE INSERT/CONSULT 12/07/2023 REVSC OPN/PRG FEM/POP W/ANGIOPLASTY [facility] Right 07-01-15 REVSC OPN/PRG FEM/POP W/ANGIOPLASTY [facility] 08-14-15 REVSC OPN/PRQ TIB/DIANNA W/ANGIOPLASTY UNI Right 07-01-15 REVSC OPN/PRQ TIB/DIANNA W/ANGIOPLASTY [facility] 08-14-15 FAMILY HISTORY: FAMILY HISTORY Problem Relation Age of Onset Diabetes Mother Cancer Mother 40 breast Coronary Artery Disease Father Hypertension Father Lipids Father Cancer Father 57 leukemia SOCIAL HISTORY: Social History Tobacco Use Smoking status: Never Passive exposure: Never Smokeless tobacco: Never Vaping Use Vaping status: Never Used Substance Use Topics Alcohol use: No Drug use: No MEDICATIONS: Prior to Admission Medications: tamsulosin (FLOMAX) 0.4 mg Take 0.8 mg by mouth once daily. clopidogrel (PLAVIX) 75 mg tablet Take 1 tablet by mouth once daily. acetaminophen (TYLENOL) 325 mg tablet Take 2 tablets by mouth every 6 hours. amLODIPine (NORVASC) 10 mg tablet Take 1 tablet by mouth once daily. aspirin 81 mg chewable tablet Take 1 tablet by mouth once daily. carvedilol (COREG) 12.5 mg tablet Take 1 tablet by mouth two times a day. dextrose (TRUEPLUS) 15 gram/32 mL oral gel Take 32 mL by mouth as needed. DULoxetine (CYMBALTA) 60 mg capsule Take 1 capsule by mouth daily at bedtime. insulin glargine 100 unit/mL (3 mL) Inject 30 Units subcutaneously every morning. insulin lispro 100 unit/mL injection Inject 3 Units subcutaneously with meals. lidocaine (SALONPAS) 4 % patch Apply 1 Patch as directed once daily. OLANZapine orally disintegrating (ZYPREXA ZYDIS) 5 mg disintegrating tablet Take 0.5 tablets by mouth every 8 hours as needed. pantoprazole DR (PROTONIX) 40 mg tablet Take 1 tablet by mouth daily at 6 am. rosuvastatin (CRESTOR) 40 mg tablet Take 1 tablet by mouth daily at bedtime. zinc oxide-cod liver oil (DESITIN 40%) 40 % paste Apply 1 application to affected area as needed. ipratropium-albuterol (DUONEB) 0.5 mg-3 mg(2.5 mg base)/3 mL nebu Inhale 3 mL as instructed every 6hours as needed for wheezing/shortness of breath. (Patient not taking: Reported on 06/04/2024) labetalol (NORMODYNE) 5 mg/mL injection Inject 1 mL intravenously every 4 hours as needed (SBP >160 only if HR < 90). (Patient not taking: Reported on 06/04/2024) melatonin 3 mg tablet Take 2 tablets by mouth one time only for 1 dose. ondansetron, PF, (ZOFRAN) 4 mg/2 mL soln Inject 4 mg intravenously every 6 hours as needed. (Patient not taking: Reported on 06/04/2024) piperacillin-tazobactam (ZOSYN) 3.375 gram/50 mL in dextrose (iso-osmotic) Inject 50 mL intravenously every 6 hours. Patient should start on January 01, 2024. (Patient not taking: Reported on 06/04/2024) No current facility-administered medications for this visit. ALLERGIES: ALLERGIES No Known Allergies REVIEW OF SYSTEMS: See HPI PHYSICAL EXAM: BP 147/65 Pulse 78 Ht 168.9 cm (5' 6.5) Wt 64.7 kg (142 lb 10.2 oz) BMI 22.68 kg/m General appearance: AO, NAD Skin: warm Lungs: bilateral chest rise Heart: RRR Abdomen: L sided colostomy site with dry dressing overlying, R sided ileostomy - pouched Extremities: Normal exam of the extremities IMPRESSION: Patient is a 68 year old M with a PMH of PAD, CAD s/p CABG 2007, carotic endarterectomy, NSTEMI, and rectal cancer s/p abdominal perineal resection with permanent end colostomy in 2021 who presented with ischemic cecum in 12/2023. Colorectal team performed an ileocecal resection with end ileostomy on 12/07/2023, left with an open abdomen. I performed additional SB resection and restored intestinal continuity to the end ileostomy. Patient's colon remains defunctionalized and he has been having issues with high ileostomy output. He is interested in ostomy reversal. PLAN: Imaging for gallbadder performed at OSH - patient instructed to have this faxed to my office Referral to [facility] to see if patient is a candidate for reversal; also, depending on necessity of cholecystectomy, could consider combo case Continue imodium, add lomotil prn Referral to gut rehab for assistance with ileostomy output Forest Kimble MD Advanced Laparoscopic and Bariatric Surgery 45min spent with patient [facility] NoteHNO ID: [id number] Author: PEBBLES BARFIELD MD Service: ? Author Type: Physician Type: Progress Notes Filed: 05/31/2024 12:13 Note Text: [facility] UR[facility]Y CLINIC NOTE Patient: Isaias Vega Provider: Pebbles Barfield MD : 1955 Date of Service: 05/31/2024 PCP: Kendy Modi MD Chief complaint/Identification: Isaias Vega is a 68 year old male patient who presents for evaluation of urinary retention. ASSESSMENT/PLAN: 1. Retention of urine - ICD9: 788.20, ICD10: R33.9 (primary diagnosis) 2. Urge incontinence - ICD9: 788.31, ICD10: N39.41 3. Frail elderly - ICD9: 797, ICD10: R54 4. History of CVA in adulthood - ICD9: V12.54, ICD10: Z86.73 Discussed options. Given lack of mobility and small volume bladder, do not recommend WINTERS procedure, as he would likely develop worsening incontinence Discussed chronic Mackenzie vs SPT. Do not recommend CIC given small volume bladder. Patient and want to proceed with SPT. Plan to follow 1 mo after placement to change catheter. Pebbles Barfield MD HPI: PMHx: Rectal cancer status post radiation, HTN, HLD, CAD, DM, stroke 05/31/2024 Cystoscopy: Nonobstructing prostate. Small capacity bladder, leaked irrigation after only 50 cc instilled. Discussed options. Elected for SPT placement. 05/02/2024 UDS Small capacity bladder with DO and incontinence Non-compliance Hypocontractile bladder Incomplete emptying Recommend maintaining Mackenzie catheter, discuss conversion to SPT 03/11/2024: NIKO Drew Past medical Hx: 2 CVA with left-sided hemiplegia, diabetes, skilled nursing anticoag - Eliquis, colorectal cancer, ileostomy for 3 years, LASHONDA, HTN, HLD, GERD, ALEJANDRO, RLS, MDD In LTCF in [place]. Had a stroke in 2008 and 2011. Using a walker since 2019, and in November had SBO that placed him in the hospital. Failed TOV x3. Was placed on Flomax which has not made a difference with TOV. Has chronic mackenzie in place. Now nonambulatory due to chronic medical conditions and recent hospitalization. Performing rehab. Was transported by ambulance service. PRESENTING HISTORY: Hematuria: none Urinary retention: yes Urinary tract infection: no Plan: UDS, cystoscopy, continue Flomax REVIEW OF SYSTEMS: A ROS was performed and pertinent negatives and positives can be found in the HPI. RELEVANT IMAGING STUDIES (most recent): No recent imaging LABS/INVESTIGATIONS: Urine Chemstrip: URINE POC GLUCOSE UA (POCT) 250 01/15/2020 BILIRUBIN UA (POCT) Negative 01/15/2020 KETONE UA (POCT) Negative 01/15/2020 SPECIFIC GRAVITY UA (POCT) 1.025 01/15/2020 HEMOGLOBIN/BLOOD UA (POCT) Negative 01/15/2020 PH UA (POCT) 6.0 01/15/2020 PROTEIN UA (POCT) Negative 01/15/2020 UROBILINOGEN UA (POCT) 0.2 01/15/2020 NITRITE UA (POCT) Negative 01/15/2020 LEUKOCYTES UA (POCT) Negative 01/15/2020 COLOR UA (POCT) Yellow 01/15/2020 CLARITY UA (POCT) Clear 01/15/2020 Creatinine Date Value Ref Range Status 12/29/2023 0.69 (L) 0.73 - 1.22 mg/dL Final 12/28/2023 0.67 (L) 0.73 - 1.22 mg/dL Final 12/28/2023 0.69 (L) 0.73 - 1.22 mg/dL Final 12/27/2023 0.65 (L) 0.73 - 1.22 mg/dL Final Hemoglobin (g/dL) Date Value 12/29/2023 9.6 05/24/2021 13.0 Hematocrit (%) Date Value 12/29/2023 30.1 05/24/2021 40.2 WBC (k/uL) Date Value 12/29/2023 8.16 05/24/2021 5.29 PSA Screening (ng/mL) Date Value 11/28/2013 0.8 HISTORIES FAMILY HISTORY Problem Relation Age of Onset Diabetes Mother Cancer Mother 40 breast Coronary Artery Disease Father Hypertension Father Lipids Father Cancer Father 57 leukemia PAST MEDICAL HISTORY Diagnosis Date Anxiety and depression CAD (coronary artery disease) [place] 2008 CVA (cerebral infarction) DM (diabetes mellitus) (HCC) Heart attack (HCC) HTN (hypertension) Hyperlipidemia PAD (peripheral artery disease) (HCC) Rectal cancer (HCC) 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 PAST SURGICAL HISTORY Procedure Laterality Date ANGIOPLASTY CAROTID ARTERY CARISA PC Rt side CABG (5) VENOUS GRAFTS AND ARTERIAL GRAFT(S) 2008 CC CORONARY STENT 01/03/15 EXCISION TONSIL LESIONS BILATERAL HERNIA REPAIR HX PAST SURGICAL HISTORY OF 2009 RCEA PICC LINE INSERT/CONSULT 12/07/2023 REVSC OPN/PRG FEM/POP W/ANGIOPLASTY [facility] 07-01-15 REVSC OPN/PRG FEM/POP W/ANGIOPLASTY [facility] 08-14-15 REVSC OPN/PRQ TIB/DIANNA W/ANGIOPLASTY [facility] 07-01-15 REVSC OPN/PRQ TIB/DIANNA W/ANGIOPLASTY [facility] 08-14-15 Social History Tobacco Use Smoking status: Never Passive exposure: Never Smokeless tobacco: Never Vaping Use Vaping status: Never Used Substance Use Topics Alcohol use: No Drug use: No ALLERGIES No Known Allergies Current Outpatient Medications Medication Sig Dispense Refill tamsulosin (FLOMAX) 0.4 mg Take 0.8 mg by mouth once daily. clopidogrel (PLAVIX) 75 mg tablet Take 1 tablet by mouth once daily. acetaminophen (T (more content not included)...[facility] 05-31-2024 History of Present illness Narrative* Pebbles Barfield MD - 05/31/2024 12:05 PM EDT Images from the original note were not included. [facility] UROLOGY CLINIC NOTE Patient: Isaias Vega Provider: Pebbles Barfield MD : 1955 Date of Service: 05/31/2024 PCP: Kendy Modi MD Chief complaint/Identification: Isaias Vega is a 68 year old male patient who presents for evaluation of urinary retention. ASSESSMENT/PLAN: 1. Retention of urine - ICD9: 788.20, ICD10: R33.9 (primary diagnosis) 2. Urge incontinence - ICD9: 788.31, ICD10: N39.41 3. Frail elderly - ICD9: 797, ICD10: R54 4. History of CVA in adulthood - ICD9: V12.54, ICD10: Z86.73 Discussed options. Given lack of mobility and small volume bladder, do not recommend WINTERS procedure,as he would likely develop worsening incontinence Discussed chronic Mackenzie vs SPT. Do not recommend CIC given small volume bladder. Patient and want to proceed with SPT. Plan to follow 1 mo after placement to change catheter. Pebbles Barfield MD HPI: PMHx: Rectal cancer status post radiation, HTN, HLD, CAD, DM, stroke 05/31/2024 Cystoscopy: Nonobstructing prostate. Small capacity bladder, leaked irrigation after only 50 cc instilled. Discussed options. Elected for SPT placement. 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 Had a stroke in 2008 and 2011. Using a walker since 2019, and in November had SBO that placed him in the hospital. Failed TOV x3. Was placed on Flomax which has not made a differencewith TOV. Has chronic mackenzie in place. Now nonambulatory due to chronic medical conditions and recent hospitalization. Performing rehab. Was transported by ambulance service. PRESENTING HISTORY: Hematuria: none Urinary retention: yes Urinary tract infection: no Plan: UDS, cystoscopy, continue Flomax REVIEW OF SYSTEMS: A ROS was performed and pertinent negatives and positives can be found in the HPI. RELEVANT IMAGING STUDIES (most recent): No recent imaging LABS/INVESTIGATIONS: Urine Chemstrip: URINE POC GLUCOSE UA (POCT) 250 01/15/2020 BILIRUBIN UA (POCT) Negative 01/15/2020 KETONE UA (POCT) Negative 01/15/2020 SPECIFIC GRAVITY UA (POCT) 1.025 01/15/2020 HEMOGLOBIN/BLOOD UA (POCT) Negative 01/15/2020 PH UA (POCT) 6.0 01/15/2020 PROTEIN UA (POCT) Negative 01/15/2020 UROBILINOGEN UA (POCT) 0.2 01/15/2020 NITRITE UA (POCT) Negative 01/15/2020 LEUKOCYTES UA (POCT) Negative 01/15/2020 COLOR UA (POCT) Yellow 01/15/2020 CLARITY UA (POCT) Clear 01/15/2020 Creatinine Date Value Ref Range Status 12/29/2023 0.69 (L) 0.73 - 1.22 mg/dL Final 12/28/2023 0.67 (L) 0.73 - 1.22 mg/dL Final 12/28/2023 0.69 (L) 0.73 - 1.22 mg/dL Final 12/27/2023 0.65 (L) 0.73 - 1.22 mg/dL Final Hemoglobin (g/dL) Date Value 12/29/2023 9.6 05/24/2021 13.0 Hematocrit (%) Date Value 12/29/2023 30.1 05/24/2021 40.2 WBC (k/uL) Date Value 12/29/2023 8.16 05/24/2021 5.29 PSA Screening (ng/mL) Date Value 11/28/2013 0.8 HISTORIES FAMILY HISTORY Problem Relation Age of Onset Diabetes Mother Cancer Mother 40 breast Coronary Artery Disease Father Hypertension Father Lipids Father Cancer Father 57 leukemia PAST MEDICAL HISTORY Diagnosis Date Anxiety and depression CAD (coronary artery disease) [place] 2008 CVA (cerebral infarction) DM (diabetes mellitus) (HCC) Heart attack (HCC) HTN (hypertension) Hyperlipidemia PAD (peripheral artery disease) (HCC) Rectal cancer (HCC) 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 PAST SURGICAL HISTORY Procedure Laterality Date ANGIOPLASTY CAROTID ARTERY S&I PC Rt side CABG (5) VENOUS GRAFTS & ARTERIAL GRAFT(S) 2008 CC CORONARY STENT 01/03/15 EXCISION TONSIL LESIONS BILATERAL HERNIA REPAIR HX PAST SURGICAL HISTORY OF 2009 RCEA PICC LINE INSERT/CONSULT 12/07/2023 REVSC OPN/PRG FEM/POP W/ANGIOPLASTY [facility] 07-01-15 REVSC OPN/PRG FEM/POP W/ANGIOPLASTY [facility] 08-14-15 REVSC OPN/PRQ TIB/DIANNA W/ANGIOPLASTY [facility] 07-01-15 REVSC OPN/PRQ TIB/DIANNA W/ANGIOPLASTY [facility] 08-14-15 Social History Tobacco Use Smoking status: Never Passive exposure: Never Smokeless tobacco: Never Vaping Use Vaping status: Never Used Substance Use Topics Alcohol use: No Drug use: No ALLERGIES No Known Allergies Current Outpatient Medications Medication Sig Dispense Refill tamsulosin (FLOMAX) 0.4 mg Take 0.8 mg by mouth once daily. clopidogrel (PLAVIX) 75 mg tablet Take 1 tablet by mouth once daily. acetaminophen (TYLENOL) 325 mg tablet Take 2 tablets by mouth every 6 hours. amLODIPine (NORVASC) 10 mg tablet Take 1 tablet by mouth once daily. aspirin 81 mg chewable tablet Take 1 tablet by mouth once daily. carvedilol (COREG) 12.5 mg tablet Take 1 tablet by mouth two times a day. dextrose (TRUEPLUS) 15 gram/32 mL oral gel Take 32 mL by mouth as needed. DULoxetine (CYMBALTA) 60 mg capsule Take 1 capsule by mouth daily at bedtime. insulin glargine 100 unit/mL (3 mL) Inject 30 Units subcutaneously every morning. insulin lispro 100 unit/mL injection Inject 3 Units subcutaneously with meals. ipratropium-albuterol (DUONEB) 0.5 mg-3 mg(2.5 mg base)/3 mL nebu Inhale 3 mL as instructed every 6hours as needed for wheezing/shortness of breath. lidocaine (SALONPAS) 4 % patch Apply 1 Patch as directed once daily. melatonin 3 mg tablet Take 2 tablets by mouth one time only for 1 dose. [address] (PROTONIX) 40 mg tablet Take 1 tablet by mouth daily at 6 am. rosuvastatin (CRESTOR) 40 mg tablet Take 1 tablet by mouth daily at bedtime. zinc oxide-cod liver oil (DESITIN 40%) 40 % paste Apply 1 application to affected area as needed. labetalol (NORMODYNE) 5 mg/mL injection Inject 1 mL intravenously every 4 hours as needed (SBP >160 only if HR < 90). OLANZapine orally disintegrating (ZYPREXA ZYDIS) 5 mg disintegrating tablet Take 0.5 tablets by mouth every 8 hours as needed. ondansetron, PF, (ZOFRAN) 4 mg/2 mL soln Inject 4 mg intravenously every 6 hours as needed. piperacillin-tazobactam (ZOSYN) 3.375 gram/50 mL in dextrose (iso-osmotic) Inject 50 mL intravenously every 6 hours. Patient should start on January 01, 2024. No current facility-administered medications for this visit. PHYSICAL EXAMINATION: Vitals: BP 121/68 Pulse 76 Resp 20 Ht 170.2 cm (5' 7) Wt 49.9 kg (110 lb) BMI 17.23 kg/m BMI: Body mass index is 17.23 kg/m . Constitutional: Apparent distress -No Psych: Alert & oriented - Yes; documented [facility] Nurse Note* Vishal Gonzalez RN - 05/31/2024 11:35 AM EDT AMBULATORY CYSTOSCOPY PROCEDURE PREOPERATIVE/PROCEDURAL VERIFICATION: Patient verified by: Name, Medical Record Number, and Date of UNIVERSAL PROTOCOL / SAFETY CHECKLIST Procedure to be Performed: Cystoscopy Sign In: A Moment of CARE was completed. Personnel directly involved with the procedure wore the appropriate PPE (Personal Protective Equipment). Patient/Surrogate Stated/Verified: PATIENT VERIFIED(optional for EMERGENT procedures): Patient name, Date of , Relevant allergies, and The intended procedure Time Out Communication: Intended patient and procedure match the source documents. Consent documented and matches the intended procedure. Sign Out: SIGN OUT (optional for EMERGENT procedures): No specimen collected. Vishal Gonzalez RN Medications and allergies reviewed and updated. Latex Allergy:No Pre-Procedure Antibiotics: Keflex 500 mg orally given during visit @ 0945 , by vishal Gonzalez Pre-Procedure Vital Signs: BP 121/68 Pulse 76 Resp 20 Ht 170.2 cm (5' 7) Wt 49.9 kg (110 lb) BMI 17.23 kg/m Current pain intensity is 0 on a scale of 0-10. Patient Prepped with Betadine Scrub to perineum and placement of sterile drape. Anesthetic Given: 10cc 2% Lidocaine Jelly into Urethra. Once procedure completed a new 18 palestinian coulde catheter placed to gravity drainage. Catheter was secured to left leg with statlock Instruction sheet given and reviewed: Yes Patient verbalizes understanding: Yes Pain Ratin on a scale of 0 to 10. Specimens: not indicated. Nurse: Vishal Gonzalez RN [facility]10-25-2024 Nurse Note* Vishal Gonzalez RN - 05/31/2024 11:35 AM EDT AMBULATORY CYSTOSCOPY PROCEDURE PREOPERATIVE/PROCEDURAL VERIFICATION: Patient verified by: Name, Medical Record Number, and Date of UNIVERSAL PROTOCOL / SAFETY CHECKLIST Procedure to be Performed: Cystoscopy Sign In: A Moment of CARE was completed. Personnel directly involved with the procedure wore the appropriate PPE (Personal Protective Equipment). Patient/Surrogate Stated/Verified: PATIENT VERIFIED(optional for EMERGENT procedures): Patient name, Date of , Relevant allergies, and The intended procedure Time Out Communication: Intended patient and procedure match the source documents. Consent documented and matches the intended procedure. Sign Out: SIGN OUT (optional for EMERGENT procedures): No specimen collected. Vishal Gonzalez RN Medications and allergies reviewed and updated. Latex Allergy:No Pre-Procedure Antibiotics: Keflex 500 mg orally given during visit @ 0945 , by vishal Gonzalez Pre-Procedure Vital Signs: BP 121/68 Pulse 76 Resp 20 Ht 170.2 cm (5' 7) Wt 49.9 kg (110 lb) BMI 17.23 kg/m Current pain intensity is 0 on a scale of 0-10. Patient Prepped with Betadine Scrub to perineum and placement of sterile drape. Anesthetic Given: 10cc 2% Lidocaine Jelly into Urethra. Once procedure completed a new 18 palestinian coulde catheter placed to gravity drainage. Catheter was secured to left leg with statlock Instruction sheet given and reviewed: Yes Patient verbalizes understanding: Yes Pain Ratin on a scale of 0 to 10. Specimens: not indicated. Nurse: Vishal Gonzalez RN [facility] NoteHNO ID: [id number] Author: PEBBLES BARFIELD MD Service: ? Author Type: Physician Type: Procedures Filed: 05/31/2024 12:13 Note Text: [facility] Patient presents with urinary retention for cystoscopy. 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 Had a stroke in 2008 and 2011. Using a walker since 2019, and in November had SBO that placed him in the hospital. Failed TOV x3. Was placed on Flomax which has not made a difference with TOV. Has chronic mackenzie in place. Now nonambulatory due to chronic medical conditions and recent hospitalization. Performing rehab. Was transported by ambulance service. PRESENTING HISTORY: Hematuria: none Urinary retention: yes Urinary tract infection: no Plan: UDS, cystoscopy, continue Flomax Interval history: Had UDS with evidence of small volume, non-compliant, hypocontractile bladder with incomplete emptying. Pt ID verified with patient: Yes Procedure verified with patient: Yes Procedure confirmed with physician and software support engineer: Yes UNIVERSAL PROTOCOL / SAFETY CHECKLIST Procedure to be Performed: Cystoscopy Sign In: A Moment of CARE was completed. Personnel directly involved with the procedure wore the appropriate PPE (Personal Protective Equipment). Patient/Surrogate Stated/Verified: PATIENT VERIFIED(optional for EMERGENT procedures): Patient name, Date of , Relevant allergies, and The intended procedure Time Out Communication: Intended patient and procedure match the source documents. Consent documented and matches the intended procedure. Sign Out: SIGN OUT (optional for EMERGENT procedures): No specimen collected. All instruments, equipment, possible retained foreign bodies accounted for. CYSTOSCOPY PROCEDURE NOTE: Antibiotics: Keflex The benefits, risks, alternatives of the cystoscopy procedure and personnel were discussed with the patient. The verbal consent was obtained and the patient agrees to proceed. Procedure: The patient was placed on the procedure table in the supine position and prepped and draped in the usual sterile fashion. 2% Lidocaine Jelly was placed per urethra as an anesthetic in the standard fashion. Once adequate local anesthesia was achieved, the tip of the flexible cystoscope was carefully placed into the urethra under direct visual guidance. Urethra: Normal Prostate: Nicely patent Bladder: no stones, no tumors, trabeculated, very small capacity bladder, leaked after instillation of 50 cc saline. At the conclusion of the procedure, the flexible cystoscope was removed atraumatically. The patient tolerated the procedure without complications. Mackenzie was replaced. Patient was given standard post-procedure instructions, and was directed to complete the course of oral antibiotics and increase oral fluid intake as directed. ASSESSMENT/PLAN: 1. Retention of urine - ICD9: 788.20, ICD10: R33.9 (primary diagnosis) 2. Urge incontinence - ICD9: 788.31, ICD10: N39.41 3. Frail elderly - ICD9: 797, ICD10: R54 4. History of CVA in adulthood - ICD9: V12.54, ICD10: Z86.73 Discussed options. Given lack of mobility and small volume bladder, do not recommend WINTERS procedure, as he would likely develop worsening incontinence Discussed chronic Mackenzie vs SPT. Do not recommend CIC given small volume bladder. Patient and want to proceed with SPT. Plan to follow 1 mo after placement to change catheter. Pebbles Barfield [facility]10-25-2024 Procedure note* Pebbles Barfield MD - 05/31/2024 10:17 AM EDT [facility] Patient presents with urinary retention for cystoscopy. 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 Had a stroke in 2008 and 2011. Using a walker since 2019, and in November had SBO that placed him in the hospital. Failed TOV x3. Was placed on Flomax which has not made a differencewith TOV. Has chronic mackenzie in place. Now nonambulatory due to chronic medical conditions and recent hospitalization. Performing rehab. Was transported by ambulance service. PRESENTING HISTORY: Hematuria: none Urinary retention: yes Urinary tract infection: no Plan: UDS, cystoscopy, continue Flomax Interval history: Had UDS with evidence of small volume, non-compliant, hypocontractile bladder with incomplete emptying. Pt ID verified with patient: Yes Procedure verified with patient: Yes Procedure confirmed with physician and software support engineer: Yes UNIVERSAL PROTOCOL / SAFETY CHECKLIST Procedure to be Performed: Cystoscopy Sign In: A Moment of CARE was completed. Personnel directly involved with the procedure wore the appropriate PPE (Personal Protective Equipment). Patient/Surrogate Stated/Verified: PATIENT VERIFIED(optional for EMERGENT procedures): Patient name, Date of , Relevant allergies, and The intended procedure Time Out Communication: Intended patient and procedure match the source documents. Consent documented and matches the intended procedure. Sign Out: SIGN OUT (optional for EMERGENT procedures): No specimen collected. All instruments, equipment, possible retained foreign bodies accounted for. CYSTOSCOPY PROCEDURE NOTE: Antibiotics: Keflex The benefits, risks, alternatives of the cystoscopy procedure and personnel were discussed with thepatient. The verbal consent was obtained and the patient agrees to proceed. Procedure: The patient was placed on the procedure table in the supine position and prepped and draped in the usual sterile fashion. 2% Lidocaine Jelly was placed per urethra as an anesthetic in the standard fashion. Once adequate local anesthesia was achieved, the tip of the flexible cystoscope was carefully placed into the urethra under direct visual guidance. Urethra: Normal Prostate: Nicely patent Bladder: no stones, no tumors, trabeculated, very small capacity bladder, leaked after instillationof 50 cc saline. At the conclusion of the procedure, the flexible cystoscope was removed atraumatically. The patienttolerated the procedure without complications. Mackenzie was replaced. Patient was given standard post-procedure instructions, and was directed to complete the course of oral antibiotics and increase oral fluid intake as directed. ASSESSMENT/PLAN: 1. Retention of urine - ICD9: 788.20, ICD10: R33.9 (primary diagnosis) 2. Urge incontinence - ICD9: 788.31, ICD10: N39.41 3. Frail elderly - ICD9: 797, ICD10: R54 4. History of CVA in adulthood - ICD9: V12.54, ICD10: Z86.73 Discussed options. Given lack of mobility and small volume bladder, do not recommend WINTERS procedure,as he would likely develop worsening incontinence Discussed chronic Mackenzie vs SPT. Do not recommend CIC given small volume bladder. Patient and want to proceed with SPT. Plan to follow 1 mo after placement to change catheter. Pebbles Barfield MD [facility]10-25-2024 Procedure note* Pebbles Barfield MD - 05/31/2024 10:17 AM EDT [facility] Patient presents with urinary retention for cystoscopy. 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 Had a stroke in 2008 and 2011. Using a walker since 2019, and in November had SBO that placed him in the hospital. Failed TOV x3. Was placed on Flomax which has not made a differencewith TOV. Has chronic mackenzie in place. Now nonambulatory due to chronic medical conditions and recent hospitalization. Performing rehab. Was transported by ambulance service. PRESENTING HISTORY: Hematuria: none Urinary retention: yes Urinary tract infection: no Plan: UDS, cystoscopy, continue Flomax Interval history: Had UDS with evidence of small volume, non-compliant, hypocontractile bladder with incomplete emptying. Pt ID verified with patient: Yes Procedure verified with patient: Yes Procedure confirmed with physician and software support engineer: Yes UNIVERSAL PROTOCOL / SAFETY CHECKLIST Procedure to be Performed: Cystoscopy Sign In: A Moment of CARE was completed. Personnel directly involved with the procedure wore the appropriate PPE (Personal Protective Equipment). Patient/Surrogate Stated/Verified: PATIENT VERIFIED(optional for EMERGENT procedures): Patient name, Date of , Relevant allergies, and The intended procedure Time Out Communication: Intended patient and procedure match the source documents. Consent documented and matches the intended procedure. Sign Out: SIGN OUT (optional for EMERGENT procedures): No specimen collected. All instruments, equipment, possible retained foreign bodies accounted for. CYSTOSCOPY PROCEDURE NOTE: Antibiotics: Keflex The benefits, risks, alternatives of the cystoscopy procedure and personnel were discussed with thepatient. The verbal consent was obtained and the patient agrees to proceed. Procedure: The patient was placed on the procedure table in the supine position and prepped and draped in the usual sterile fashion. 2% Lidocaine Jelly was placed per urethra as an anesthetic in the standard fashion. Once adequate local anesthesia was achieved, the tip of the flexible cystoscope was carefully placed into the urethra under direct visual guidance. Urethra: Normal Prostate: Nicely patent Bladder: no stones, no tumors, trabeculated, very small capacity bladder, leaked after instillationof 50 cc saline. At the conclusion of the procedure, the flexible cystoscope was removed atraumatically. The patienttolerated the procedure without complications. Mackenzie was replaced. Patient was given standard post-procedure instructions, and was directed to complete the course of oral antibiotics and increase oral fluid intake as directed. ASSESSMENT/PLAN: 1. Retention of urine - ICD9: 788.20, ICD10: R33.9 (primary diagnosis) 2. Urge incontinence - ICD9: 788.31, ICD10: N39.41 3. Frail elderly - ICD9: 797, ICD10: R54 4. History of CVA in adulthood - ICD9: V12.54, ICD10: Z86.73 Discussed options. Given lack of mobility and small volume bladder, do not recommend WINTERS procedure,as he would likely develop worsening incontinence Discussed chronic Mackenzie vs SPT. Do not recommend CIC given small volume bladder. Patient and want to proceed with SPT. Plan to follow 1 mo after placement to change catheter. Pebbles Barfield MD documented [facility] NoteHNO ID: [id number] Author: PEBBLES BARFIELD MD Service: ? Author Type: Physician Type: Progress Notes Filed: 05/26/2024 21:54 Note Text: Urodynamics Interpretation: A 6 Fr catheter was placed and secured to the patient's penis with tape and a separate rectal catheter was placed for intra-abdominal pressure measurements. The study was then run to yield results as follows: Uroflow: NA- came with Mackenzie PVR: NA - came with Mackenzie CMG: The FS and SD: 110 mL and 160 mL Bladder compliance: Pressures gradually increase with filling Detrusor overactivity: Some, associated with leakage Total tolerated volume was 160 mL Stress incontinence demonstrated with Valsalva during filling: None PRESSURE-FLOW VOIDING STUDY: Voided: 68 ml Maximum flow rate - 3.2 ml/sec Average flow rate - 1.7 ml/sec Max detrusor pressure of 42 cmH2O Pressure Flow phase: Pdet Qmax was 27 cm H2O Abdominal strain: NA EMG: DESD or abnormal patterns noted: n/a Impression: Small capacity bladder with DO and incontinence Non-compliance Hypocontractile bladder Incomplete emptying Recommend maintaining Mackenzie catheter, discuss conversion to [facility]09-27-2024 NoteHNO ID: [id number] Author: AILYN WARREN RN Service: ? Author Type: Registered Nurse Type: Progress Notes Filed: 05/03/2024 17:23 Note Text: ET/WOCN Nursing Consult Topic: ET/WOCN Consultation Note ET Outcome: Pt came to see the [facility] nurse via wheel chair accompanied by his . He did not have any other appointment. Noted pt has not have any post op appointment since his ileostomy surgery in December. Informed that the pt can be seen by nurse practitioner since Dr. Guerrero has left the [facility]. Provided information. Noted pt has very thin liquid effluent and it was active. Preventing dehydration after bowel surgery information, hand out for oral rechydration solution, and keeping I AND O explained at this time. He was taking imodium but not certain timing. Discussed he can take the imodium,30 min prior to eat, otherwise as doctor's instruction. Pt and informed that his pouch leaked sometimes. Once removed, noted they used a lot of amount of paste and cut pouch opening on the size of budded part of stoma. The opening size was too small. Adjustment of pouching system was done as below. New prescription, sample of supplies provided. ET's Next Scheduled Visit: as needed. #1 pouch: Stoma Type: End ileostomy Diameter:1 1/8 x 1 1/2 Location: RLQ Protrusion: Budded Mucosal condition and color: Red and moist Mucocutaneous junction Intact Peristomal Skin: Erythema Location of Skin Impairment: slight erythema noted outer area of 1-5 o'clock area. Peristomal contour: Rounded, there were shallow crease noted from 4-7 o'clock area with peristalsis. Supportive Tissue: Soft Character of output: large amount of liquid effluent Emptying frequency per day: 6-8 times per day per pt. Current pouching system: Ranjana New Image 1 3/4 flat flange cut opening 1 1/8 size with a lot of paste, drainable pouch Current wearing time: 3 days, often has leakage Recommendations: Skin Care: stomahesive powder to irritated skin, No Sting Liquid Skin Barrier as option Pouching System: increased convexity. Deputy New Image 2 1/4 convex flange cut to fit the stoma, paste, High Volume Output Pouch. Provided drainable pouch option. Wear Time: 3-4 days #2 pouch: End colostomy as non functional stoma at [facility]. Stoma was red and moist, budded. Mucocutaneous junction and peristomal skin was intact. Has managed with Ranjana New Image 2 1/4 flat flange, drainable pouch. Drainage: none. Occasional mucous. Wear time: 1 week. Recommendation: Remove the pouch, manage with dressing or gauze with vaseline. Suggested to use dressing: Gauze, Sanitary napkin, Mepore island dressing, change daily. Midline Abdominal Incision: Healed scar Time Increment: 1 hour ANTHONY MarchN RN CWOCN The [facility] nursing pager [phone] (M-F 7a-4p, Sat, Sun, Holiday 7a-3p)[facility]09-27-2024 History of Present illness Narrative* Ailyn Warren RN - 05/03/2024 4:51 PM EDT ET/WOCN Nursing Consult Topic: ET/WOCN Consultation Note ET Outcome: Pt came to see the [facility] nurse via wheel chair accompanied by his . He did not have any other appointment. Noted pt has not have any post op appointment since his ileostomy surgery in December. Informed that the pt can be seen by nurse practitioner since Dr. Guerrero has left the [facility]. Provided information. Noted pt has very thin liquid effluent and it was active. Preventing dehydration after bowel surgery information, hand out for oral rechydration solution, and keeping I & O explained at this time. He was taking imodium but not certain timing. Discussed he can take the imodium,30 min prior to eat, otherwise as doctor's instruction. Pt and informed that his pouch leaked sometimes. Once removed, noted they used a lot of amountof paste and cut pouch opening on the size of budded part of stoma. The opening size was too small. Adjustment of pouching system was done as below. New prescription, sample of supplies provided. ET's Next Scheduled Visit: as needed. #1 pouch: Stoma Type: End ileostomy Diameter:1 1/8 x 1 1/2 Location: RLQ Protrusion: Budded Mucosal condition and color: Red and moist Mucocutaneous junction Intact Peristomal Skin: Erythema Location of Skin Impairment: slight erythema noted outer area of 1-5 o'clock area. Peristomal contour: Rounded, there were shallow crease noted from 4-7 o'clock area with peristalsis. Supportive Tissue: Soft Character of output: large amount of liquid effluent Emptying frequency per day: 6-8 times per day per pt. Current pouching system: Deputy New Image 1 3/4 flat flange cut opening 1 1/8 size with a lot of paste, drainable pouch Current wearing time: 3 days, often has leakage Recommendations: Skin Care: stomahesive powder to irritated skin, No Sting Liquid Skin Barrier as option Pouching System: increased convexity. Deputy New Image 2 1/4 convex flange cut to fit the stoma, paste, High Volume Output Pouch. Provided drainable pouch option. Wear Time: 3-4 days #2 pouch: End colostomy as non functional stoma at [facility]. Stoma was red and moist, budded. Mucocutaneous junction and peristomal skin was intact. Has managed with Deputy New Image 2 1/4 flat flange, drainable pouch. Drainage: none. Occasional mucous. Wear time: 1 week. Recommendation: Remove the pouch, manage with dressing or gauze with vaseline. Suggested to use dressing: Gauze, Sanitary napkin, Mepore island dressing, change daily. Midline Abdominal Incision: Healed scar Time Increment: 1 hour JIM March RN CWOCN The [facility] nursing pager [phone] (M-F 7a-4p, Sat, Sun, Holiday 7a-3p) * Ailyn Warren RN - 05/03/2024 1:25 [place] [address] Patient: Isaias Vega Patient Address: [address] [place] [address] [place] [address] Preferred Gender: male Date of : 1955 Type of Stoma: End Ileostomy Diagnosis: Rectal Cancer C20 OSTOMY SUPPLY ORDER FORM Pouch: Deputy: New Image 2 Beige Lock 'n Roll, drainable pouch #16573 New Image 2 High Output Wide Bore #21306 30 day use - 2 Boxes (20 pouches) Wafer: Ranjana: New Image CeraPlus 2 1/4 Convex, with tape # 15953 30 day use - 4 Boxes (20 flanges) Adhesive Removers: ConvaTec Esenta Wipes #326934 30 day use - 1 Box Belt: Deputy Medium # 7300 30 day use - 2 belts [facility] Accessories: Mefix Tape 2 # 140777 30 day use - As Needed Paste: ConvaTec Stomahesive # 299678 30 day use - 2 Tubes Powder: ConvaTec Stomahesive # 79374 30 day use - 1 Bottle Skin Sealant: 3M No Sting, 30/Box # 2804 30 day use - As Needed Other: Molnlycke Mepore dressing 3 3/5 x 4 #896306 50/Box 30 day use - 1 Box Deputy large bore drainage bag #5551 30 day use - 2 Bags as needed. Refills: 11 Attending Physician: Dr. Galarza For immediate authorization, please contact the physician s office. [facility] Nurse: ANTHONY MelchorN, CWOCN Note: SIGNATURE: Ailyn Gabriel RN PATIENT NAME: Isaias Vega DATE: May 03, 2024 TIME: 1:26 PM CONTACT #: [phone] documented in this [facility]09-27-[facility]24 NoteHNO ID: [id number] Author: AILYN WARREN RN Service: ? Author Type: Registered Nurse Type: Progress Notes Filed: 05/03/2024 13:34 Note Text: The [address] [address] Patient: Isaias Vega Patient Address: [address] [place] [address] [place] [address] Preferred Gender: male Date of : 1955 Type of Stoma: End Ileostomy Diagnosis: Rectal Cancer C20 OSTOMY SUPPLY ORDER FORM Pouch: Deputy: New Image 2 ? Beige Lock 'n Roll, drainable pouch #12307 New Image 2 ? High Output Wide Bore #87847 30 day use - 2 Boxes (20 pouches) Wafer: Deputy: New Image CeraPlus 2 1/4 Convex, with tape # 21716 30 day use - 4 Boxes (20 flanges) Adhesive Removers: ConvaTec Esenta Wipes #090985 30 day use - 1 Box Belt: Deputy Medium # 7300 30 day use - 2 belts [facility] Accessories: Mefix Tape 2 # 704084 30 day use - As Needed Paste: ConvaTec Stomahesive # 063186 30 day use - 2 Tubes Powder: ConvaTec Stomahesive # 70068 30 day use - 1 Bottle Skin Sealant: 3M No Sting, 30/Box # 2644 30 day use - As Needed Other: Molnlycke Mepore dressing 3 3/5 x 4 #028976 50/Box 30 day use - 1 Box Deputy large bore drainage bag #5921 30 day use - 2 Bags as needed. Refills: 11 Attending Physician: Dr. Galarza For immediate authorization, please contact the physician?s office. [facility] Nurse: JIM Melchor, CWOCN Note: SIGNATURE: Ailyn Gabriel RN PATIENT NAME: Isaias Vega DATE: May 03, 2024 TIME: 1:26 PM CONTACT #: [phone] Note* Rosy Bautista RN - 05/02/2024 9:29 AM EDT [facility] URODYNAMICS LAB URODYNAMIC PROCEDURE NOTE ID Verified by: Rosy Bautista RN with name and birthdate. Procedure instructions reviewed with patient prior to procedure: Yes Currently experiencing pain: Yes LOCATION: urethra PAIN SCALE: 1 on a scale of 0-10 PAIN CHARACTER: burning on a scale of 0-10. Does the patient have any concerns about safety in the home/falls?: At risk due to: unsteady gait, imbalance, and use of a wheelchair Has the patient had 2 falls in the last year or 1 fall with injury or currently using assistive device (walker, cane, wheelchair, crutches): Yes, patient high risk for falls, provider notified. What interventions were put in place to prevent falls during this visit: Increased observations by caregivers Instructed patient to call for help if needed Offered assistance with transfers/clothing Has patient had any history of Mitral Valve prolapse: No MEDS:NONE Has patient had any history of prosthetics: No MEDS: NONE Latex allergy: No Iodine allergy: No Females- Is patient : No Respite Coordinator offered: Patient declines B/O UA: Not completed due to indwelling mackenzie. Asymptotic at this time. Pre- test UROFLOWMETRY- not completed as has chronic indwelling mackenzie. CYSTOMETROGRAM Subtracted:Yes Video: No EMG: Yes First Sensation: 110 ml Strong desire: 160 ml Max. capacity:160 ml Maximum filling detrusor pressure 18 cm of water Detrusor overactivity associated with urge: Yes Detrusor overactivity associated with leakage: Yes Was patient assessed for VLPP / UPP No- denies history of leakage Leaks urine with valsalva /coughs: N/A Lowest Leak point pressure: N/A PRESSURE-FLOW VOIDING STUDY Did patient void with catheters in place Yes Voided: 68 ml Involuntary Max Voiding Detrusor Pressure: 42 cm H2O P det @ Q max (Max Flow): 27 cm H2O Maximum Flow Rate: 3.2 ml/sec Average Flow Rate: 1.7 ml/sec Comments: Pre-test uroflow not completed due to indwelling mackenzie. Urodynamics completed with P-Abd in colostomy. 1st test patient was filled at rate of 30 with 1 urge leak noted, and patient was unable to stop stream. 2nd test Patient filled at reduced rate (10), and was given permit to void at strong desire. Patient unable to void and reports that sensation to void was decreased. Continued to fill patient and noted urge allowing patient to void. Mackenzie replaced. Noted steady rise in PVES throughout testing. Follow up 05/27/24 for cysto. STUDY DETAILS: Was a uroflow done at some point during the study: No Was a cystometrogram performed: Yes Was a UPP/VLPP done: No Was an EMG done: Yes Was an intraabdominal pressure recorded with urethral catheter in: Yes Where were pressure catheters placed: Bladder and Ostomy Was contrast instilled for radiologic evaluation: No Please use Urodynamic Graph. Pt given verbal home going instructions. Pt states an understanding of instructions given. [facility]09-26-2024 Nurse Note* Rosy Bautista RN - 05/02/2024 9:29 AM EDT [facility] URODYNAMICS LAB URODYNAMIC PROCEDURE NOTE ID Verified by: Rosy Bautista RN with name and birthdate. Procedure instructions reviewed with patient prior to procedure: Yes Currently experiencing pain: Yes LOCATION: urethra PAIN SCALE: 1 on a scale of 0-10 PAIN CHARACTER: burning on a scale of 0-10. Does the patient have any concerns about safety in the home/falls?: At risk due to: unsteady gait, imbalance, and use of a wheelchair Has the patient had 2 falls in the last year or 1 fall with injury or currently using assistive device (walker, cane, wheelchair, crutches): Yes, patient high risk for falls, provider notified. What interventions were put in place to prevent falls during this visit: Increased observations by caregivers Instructed patient to call for help if needed Offered assistance with transfers/clothing Has patient had any history of Mitral Valve prolapse: No MEDS:NONE Has patient had any history of prosthetics: No MEDS: NONE Latex allergy: No Iodine allergy: No Females- Is patient : No Respite Coordinator offered: Patient declines B/O UA: Not completed due to indwelling mackenzie. Asymptotic at this time. Pre- test UROFLOWMETRY- not completed as has chronic indwelling mackenzie. CYSTOMETROGRAM Subtracted:Yes Video: No EMG: Yes First Sensation: 110 ml Strong desire: 160 ml Max. capacity:160 ml Maximum filling detrusor pressure 18 cm of water Detrusor overactivity associated with urge: Yes Detrusor overactivity associated with leakage: Yes Was patient assessed for VLPP / UPP No- denies history of leakage Leaks urine with valsalva /coughs: N/A Lowest Leak point pressure: N/A PRESSURE-FLOW VOIDING STUDY Did patient void with catheters in place Yes Voided: 68 ml Involuntary Max Voiding Detrusor Pressure: 42 cm H2O P det @ Q max (Max Flow): 27 cm H2O Maximum Flow Rate: 3.2 ml/sec Average Flow Rate: 1.7 ml/sec Comments: Pre-test uroflow not completed due to indwelling mackenzie. Urodynamics completed with P-Abd in colostomy. 1st test patient was filled at rate of 30 with 1 urge leak noted, and patient was unable to stop stream. 2nd test Patient filled at reduced rate (10), and was given permit to void at strong desire. Patient unable to void and reports that sensation to void was decreased. Continued to fill patient and noted urge allowing patient to void. Mackenzie replaced. Noted steady rise in PVES throughout testing. Follow up 05/27/24 for cysto. STUDY DETAILS: Was a uroflow done at some point during the study: No Was a cystometrogram performed: Yes Was a UPP/VLPP done: No Was an EMG done: Yes Was an intraabdominal pressure recorded with urethral catheter in: Yes Where were pressure catheters placed: Bladder and Ostomy Was contrast instilled for radiologic evaluation: No Please use Urodynamic Graph. Pt given verbal home going instructions. Pt states an understanding of instructions given. [facility] Telephone encounter Note * Telephone Encounter - Kenzie Drew APRN.CNP, DNP - 04/12/2024 4:54 PM EDT Thank Pebbles. Have a great weekend! Niko [facility]09-06-2024 Miscellaneous Notes* Telephone Encounter - Kenzie Drew APRN.CNP, DNP - 04/12/2024 4:54 PM EDT Thank Pebbles. Have a great weekend! Niko * Telephone Encounter - Pebbles Barfield MD - 04/12/2024 3:32 PM EDT Patient was supposed to have UDS at [facility], but catheter was malpositioned and he had a UTI, so they replaced his catheter, sent a culture and deferred the UDS. Urine culture came back, so I called in Keflex for him to take for 10 days. Also needs to reschedule his UDS (needs to be at [facility] [place] due to need for Tricia lift). We can also reschedule his visit with me until after his UDS. documented in this encounterSal[facility] Telephone encounter Note * Telephone Encounter - Pebbles Barfield MD - 04/12/2024 3:32 PM EDT Patient was supposed to have UDS at [facility] [place], but catheter was malpositioned and he had a UTI, so they replaced his catheter, sent a culture and deferred the UDS. Urine culture came back, so I called in Keflex for him to take for 10 days. Also needs to reschedule his UDS (needs to be at [facility] [place] due to need for Tricia lift). We can also reschedule his visit with me until after his UDS. [facility]09-04-2024 Note* Addendum Note - Iwona Taylor RN - 04/10/2024 10:39 AM EDTAddended by: IWONA TAYLOR on: 04/10/2024 10:39 AM Modules accepted: Orders [facility]09-04-2024 Miscellaneous Notes* Addendum Note - Iwona Taylor RN - 04/10/2024 10:39 AM EDTAddended by: IWONA TAYLOR on: 04/10/2024 10:39 AM Modules accepted: Orders documented in this encounterSalem [facility] Nurse Note* Iwona Taylor RN - 04/10/2024 9:33 AM EDT [facility] URODYNAMICS LAB URODYNAMIC PROCEDURE NOTE ID Verified by: Iwona Taylor RN with name and birthdate. Procedure instructions reviewed with patient prior to procedure: Yes Currently experiencing pain: No 0 on a scale of 0 to 10 on a scale of 0-10. Does the patient have any concerns about safety in the home/falls?: At risk due to: unsteady gait, imbalance, and use of a wheelchair Has the patient had 2 falls in the last year or 1 fall with injury or currently using assistive device (walker, cane, wheelchair, crutches): Yes, patient high risk for falls, provider notified. What interventions were put in place to prevent falls during this visit: Increased observations by caregivers Has patient had any history of Mitral Valve prolapse: No MEDS:NONE Has patient had any history of prosthetics: No MEDS: NONE Latex allergy: No Iodine allergy: No Respite Coordinator offered:Patient declines B/O UA: Yes, Positive for leukocytes and positive for nitrates. Comments: Patient states his catheter is not draining at all and he has been leaking around the catheter, his depends and pad were both wet upon arrival for UDS. Inserted straight catheter to ensure bladder was drained, and red cloudy urine with sediment was drained and urine was positive for leukocytes and nitrates. Patient states he is having burning. Attempted to page x1 and call Dr. Barfield x2 with no answer or response. Reached out to Dr. Hernandes our unit for guidance and was told to send urine for culture, upsize catheter to 18 coude latex and cancel UDS. Dr. Barfield notified. [facility]09-04-2024 Nurse Note* Iwona Taylor RN - 04/10/2024 9:33 AM EDT [facility] URODYNAMICS LAB URODYNAMIC PROCEDURE NOTE ID Verified by: Iwona Taylor RN with name and birthdate. Procedure instructions reviewed with patient prior to procedure: Yes Currently experiencing pain: No 0 on a scale of 0 to 10 on a scale of 0-10. Does the patient have any concerns about safety in the home/falls?: At risk due to: unsteady gait, imbalance, and use of a wheelchair Has the patient had 2 falls in the last year or 1 fall with injury or currently using assistive device (walker, cane, wheelchair, crutches): Yes, patient high risk for falls, provider notified. What interventions were put in place to prevent falls during this visit: Increased observations by caregivers Has patient had any history of Mitral Valve prolapse: No MEDS:NONE Has patient had any history of prosthetics: No MEDS: NONE Latex allergy: No Iodine allergy: No Respite Coordinator offered:Patient declines B/O UA: Yes, Positive for leukocytes and positive for nitrates. Comments: Patient states his catheter is not draining at all and he has been leaking around the catheter, his depends and pad were both wet upon arrival for UDS. Inserted straight catheter to ensure bladder was drained, and red cloudy urine with sediment was drained and urine was positive for leukocytes and nitrates. Patient states he is having burning. Attempted to page x1 and call Dr. Barfield x2 with no answer or response. Reached out to Dr. Hernandes our unit for guidance and was told to send urine for culture, upsize catheter to 18 coude latex and cancel UDS. Dr. Barfield notified. documented in this encounterSalem [facility]08-05-[facility]24 Instructions* Patient Instructions* Kenzie Drew APRN.[facility] - 03/11/2024 10:04 AM EDT Follow up with our Urology department for Cystoscopy. Cont with Flomax. A Cystoscopy is a procedure that allows your doctor to examine the lining of your bladder and the tube that carries urine out of your body (urethra). A hollow tube (cystoscope) equipped with a lens is inserted into your urethra and slowly advanced into your bladder. This is a very quick outpatient procedure completed at one of our Urology offices. I discussed treatment options at length including r/b/a of each: To include Medication therapy and the role of further evaluation with UDS and cysto if indicated. Discussed the role of pharmacotherapy, including risks, benefits and alternatives: Alpha-tian therapy [e.g. Tamsulosin] - potential risks of dizziness, asthenia, orthostasis, and retrograde ejaculation. Return to the clinic or seek care at [facility] for any worsening signs or symptoms: such as fevers, chills, worsening pain, gross blood in urine or worsening urinary symptoms. For severe symptoms seek care at the closest ER. Plan of care, medicaiton side effects and management reviewed with patient. Healthy Habits: Recommend regular physical activity, nutrition and healthy eating habits. Consume a variety of foods every day focusing on fruits, vegetables and lean meats). Eat foods low in fat, saturated fat and cholesterol. Eat a limited amount of salt and sodium. Drink adequate amounts of water and limit sugary drinks. Exercise portion control in meal selection. Establish a mindset of a wellness approach to health. Thank you for allowing me to provide your care today. I look forward to seeing you again and maintaining your health. Kenzie Drew APRN.[facility] documented in this encounterSalem City Hospital08-[facility]-2024 History of Present illness Narrative* Kenzie Drew APRN.CNP, DNP - 03/11/2024 9:00 AM EDT [facility] MALE PATIENT - HISTORY AND PHYSICAL EXAMINATION PATIENT: Isaias Vega (68 year old) 03/11/2024 PCP: Kendy Modi MD CHIEF COMPLAINT: LUTS HISTORY OF PRESENT ILLNESS: 68 year old year old male with LUTS. Past medical Hx: 2 CVA with left-sided hemiplegia, diabetes, long filler cigar roller machine anticoag - Eliquis, colorectal cancer, ileostomy for 3 years, LASHONDA, HTN, HLD, GERD, ALEJANDRO, RLS, MDD In LTCF in [place]. Had a stroke in 2008 and 2011. Using a walker since 2019, and in November had SBO that placed him in the hospital. Failed TOV x3. Was placed on Flomax which has not made a differencewith TOV. Has chronic mackenzie in place. Now nonambulatory due to chronic medical conditions and recent hospitalization. Performing rehab. Was transported by ambulance service. PRESENTING HISTORY: Hematuria: none Urinary retention: yes Urinary tract infection: no Patient Entered Questionnaires: PROMIS Global Health 11/09/2015 12/10/2015 07/26/2020 PROMIS Global Health Scale Physical Health Percentile 2 2 4 Mental Health Percentile 9 2 5 Percentiles provide an indication of how the patient's score ranks in relation to the general population. Higher percentile rankings indicate better function/quality of life. 50th percentile is the average of the general population and indicates half of respondents had a worse score. HISTORY: PAST MEDICAL HISTORY No date: Anxiety and depression No date: CAD (coronary artery disease) Comment: [place] 2008 No date: CVA (cerebral infarction) No date: DM (diabetes mellitus) (HCC) No date: Heart attack (HCC) No date: HTN (hypertension) No date: Hyperlipidemia No date: PAD (peripheral artery disease) (HCC) No date: Rectal cancer (HCC) No date: Sleep apnea No date: tumor of the upper jaw PAST SURGICAL HISTORY No date: ANGIOPLASTY CAROTID ARTERY [facility] Comment: Rt side 2009: CABG (5) VENOUS GRAFTS & ARTERIAL GRAFT(S) 01/03/15: CC CORONARY STENT No date: EXCISION TONSIL LESIONS BILATERAL No date: HERNIA REPAIR HX 2010: PAST SURGICAL HISTORY OF Comment: RCEA 12/07/2023: PICC LINE INSERT/CONSULT 07-01-15: REVSC OPN/PRG FEM/POP W/ANGIOPLASTY UNI; Right 08-14-15: REVSC OPN/PRG FEM/POP W/ANGIOPLASTY UNI 07-01-15: REVSC OPN/PRQ TIB/DIANNA W/ANGIOPLASTY UNI; Right 08-14-15: REVSC OPN/PRQ TIB/DIANNA W/ANGIOPLASTY UNI Social History Tobacco Use Smoking status: Never Passive exposure: Never Smokeless tobacco: Never Vaping Use Vaping Use: Never used Substance Use Topics Alcohol use: No Drug use: No FAMILY HISTORY Problem Relation Age of Onset Diabetes Mother Cancer Mother 40 breast Coronary Artery Disease Father Hypertension Father Lipids Father Cancer Father 57 leukemia MEDICATIONS: Current Outpatient Medications Medication Sig tamsulosin (FLOMAX) 0.4 mg Take 0.8 mg by mouth once daily. clopidogrel (PLAVIX) 75 mg tablet Take 1 tablet by mouth once daily. acetaminophen (TYLENOL) 325 mg tablet Take 2 tablets by mouth every 6 hours. amLODIPine (NORVASC) 10 mg tablet Take 1 tablet by mouth once daily. aspirin 81 mg chewable tablet Take 1 tablet by mouth once daily. carvedilol (COREG) 12.5 mg tablet Take 1 tablet by mouth two times a day. dextrose (TRUEPLUS) 15 gram/32 mL oral gel Take 32 mL by mouth as needed. DULoxetine (CYMBALTA) 60 mg capsule Take 1 capsule by mouth daily at bedtime. insulin glargine 100 unit/mL (3 mL) Inject 30 Units subcutaneously every morning. insulin lispro 100 unit/mL injection Inject 3 Units subcutaneously with meals. ipratropium-albuterol (DUONEB) 0.5 mg-3 mg(2.5 mg base)/3 mL nebu Inhale 3 mL as instructed every 6hours as needed for wheezing/shortness of breath. labetalol (NORMODYNE) 5 mg/mL injection Inject 1 mL intravenously every 4 hours as needed (SBP >160 only if HR < 90). lidocaine (SALONPAS) 4 % patch Apply 1 Patch as directed once daily. OLANZapine orally disintegrating (ZYPREXA ZYDIS) 5 mg disintegrating tablet Take 0.5 tablets by mouth every 8 hours as needed. ondansetron, PF, (ZOFRAN) 4 mg/2 mL soln Inject 4 mg intravenously every 6 hours as needed. pantoprazole DR (PROTONIX) 40 mg tablet Take 1 tablet by mouth daily at 6 am. piperacillin-tazobactam (ZOSYN) 3.375 gram/50 mL in dextrose (iso-osmotic) Inject 50 mL intravenously every 6 hours. Patient should start on January 01, 2024. rosuvastatin (CRESTOR) 40 mg tablet Take 1 tablet by mouth daily at bedtime. zinc oxide-cod liver oil (DESITIN 40%) 40 % paste Apply 1 application to affected area as needed. melatonin 3 mg tablet Take 2 tablets by mouth one time only for 1 dose. No current facility-administered medications for this visit. LABS: GLUCOSE UA (POCT) 250 01/15/2020 BILIRUBIN UA (POCT) Negative 01/15/2020 KETONE UA (POCT) Negative 01/15/2020 SPECIFIC GRAVITY UA (POCT) 1.025 01/15/2020 HEMOGLOBIN/BLOOD UA (POCT) Negative 01/15/2020 PH UA (POCT) 6.0 01/15/2020 PROTEIN UA (POCT) Negative 01/15/2020 UROBILINOGEN UA (POCT) 0.2 01/15/2020 NITRITE UA (POCT) Negative 01/15/2020 LEUKOCYTES UA (POCT) Negative 01/15/2020 COLOR UA (POCT) Yellow 01/15/2020 CLARITY UA (POCT) Clear 01/15/2020 Creatinine Creatinine Date Value Ref Range Status 12/29/2023 0.69 (L) 0.73 - 1.22 mg/dL Final 12/28/2023 0.67 (L) 0.73 - 1.22 mg/dL Final 12/28/2023 0.69 (L) 0.73 - 1.22 mg/dL Final 12/27/2023 0.65 (L) 0.73 - 1.22 mg/dL Final PSA PSA Screening (ng/mL) Date Value 11/28/2013 0.8 IMAGING: CT ABD/PEL W IVCON Result Date: 12/18/2023 IMPRESSION: Small bowel ileus with new long segment pneumatosis and relative hypoenhancement, raising possibility of bowel ischemia. Severe atherosclerotic narrowing proximal SMA although patent grossly patent where able to assess. New gastric distention probably related to the ileus. Interval placement of presacral drain with decrease in size presacral collection. URGENT RESULTS Acuity: Urgent Communication: Communicated with VIVIAN Anne on 12/18/2023 at 12:01 PM via verbal communication. --END OF FINDING-- Optics Engineer: NUVIA Transcribe Date/Time: Dec 18 2023 11:19A Dictated by : JOE TAYLOR DO This examination was interpreted and the report reviewed and electronically signed by: OLIVER GUEVARA DO on Dec 18 2023 12:06PM EST CT ABD/PEL W IVCON Result Date: 12/12/2023 IMPRESSION: Interval ileocecectomy, as described, with new complex pelvic collection possibly representing a combination of hemostatic material and abscess. Small bowel ileus. Optics Engineer: NUVIA Transcribe Date/Time: Dec 12 2023 1:09P Dictated by : AMILCAR WOLF DO This examination was interpreted and the report reviewed and electronically signed by: VINAY MARCOS MD on Dec 12 2023 2:59PM EST Review of Systems: PAIN ASSESSMENT: CURRENTLY HAVING NO PAIN GENERAL: No weight loss, malaise or fevers GI: No nausea, vomiting MUSCULOSKELETAL: Negative for generalized joint pain SKIN: Negative for rash HEMATOLOGY/LYMPHOLOGY: Negative for swollen nodes All other systems reviewed and noncontributory PHYSICAL EXAMINATION: VITALS: Wt 49 kg (108 lb) BMI 17.43 kg/m GENERAL: alert, no distress, normal affect RESPIRATORY: normal effort EXTREMITIES: normal SKIN: normal NEUROLOGIC: normal ASSESSMENT/PLAN: 1. Urinary retention - ICD9: 788.20, ICD10: R33.9 (primary diagnosis) MDM: 68y/o male with multiple chronic medical conditions. The patient has UR after hospital stay. Hx of colorectal cancer. Has failed 3 TOV. Started on Flomax. Still unable to pass TOV. I discussed treatment options at length including r/b/a of each. I also discussed the role of further evaluation with UDS and cysto if indicated. Discussed the role of pharmacotherapy, including risks, benefits and alternatives: Alpha-tian therapy [e.g. Tamsulosin] - potential risks of dizziness, asthenia, orthostasis, and retrograde ejaculation. Discussed case with Dr. Barfield. Prefers to have UDS first and then Cysto. Plan: [facility] Fl[facility]ax [facility] - will need a lift due to being nonambulatory. Cysto Avoid bladder irritants - coffee, tea, cola drinks, chocolate, alcohol, artificial sweeteners and cigarettes - CYSTO DIAGNOSTIC - URODYNAMICS 2. Frail elderly - ICD9: 797, ICD10: R54 Past CVA and gradual frailty. Now unable to ambulate. Transported via ambulance on a cot. Still performing rehab, post his hospital stay. 3. History of CVA in adulthood - ICD9: V12.54, ICD10: Z86.73 Past CVA and gradual frailty. Now unable to ambulate. Transported via ambulance on a cot. Still performing rehab, post his hospital stay. 4. Unable to walk - ICD9: 719.7, ICD10: R26.2 Past CVA and gradual frailty. Now unable to ambulate. Transported via ambulance on a cot. Still performing rehab, post his hospital stay. Kenzie Drew DNP, ARTI Department of Urology [facility] documented in this encounterSalem City Hospital08-05-[facility]24 NoteHNO ID: [id number] Author: KENZIE DREW APRN.[facility] Service: ? Author Type: Nurse Practitioner Type: Progress Notes Filed: 03/12/2024 11:03 Note Text: [facility] MALE PATIENT - HISTORY AND PHYSICAL EXAMINATION PATIENT: Isaias Vega (68 year old) 03/11/2024 PCP: Kendy Modi MD CHIEF COMPLAINT: LUTS HISTORY OF PRESENT ILLNESS: 68 year old year old male with LUTS. Past medical Hx: 2 CVA with left-sided hemiplegia, diabetes, long filler cigar roller machine anticoag - Eliquis, colorectal cancer, ileostomy for 3 years, LASHONDA, HTN, HLD, GERD, ALEJANDRO, RLS, MDD In LTCF in [place]. Had a stroke in 2008 and 2011. Using a walker since 2019, and in November had SBO that placed him in the hospital. Failed TOV x3. Was placed on Flomax which has not made a difference with TOV. Has chronic mackenzie in place. Now nonambulatory due to chronic medical conditions and recent hospitalization. Performing rehab. Was transported by ambulance service. PRESENTING HISTORY: Hematuria: none Urinary retention: yes Urinary tract infection: no Patient Entered Questionnaires: PROMIS Global Health 11/09/2015 12/10/2015 07/26/2020 PROMIS Global Health Scale Physical Health Percentile 2 2 4 Mental Health Percentile 9 2 5 Percentiles provide an indication of how the patient's score ranks in relation to the general population. Higher percentile rankings indicate better function/quality of life. 50th percentile is the average of the general population and indicates half of respondents had a worse score. HISTORY: PAST MEDICAL HISTORY No date: Anxiety and depression No date: CAD (coronary artery disease) Comment: [place] 2008 No date: CVA (cerebral infarction) No date: DM (diabetes mellitus) ([facility]) No date: Heart attack (HCC) No date: HTN (hypertension) No date: Hyperlipidemia No date: PAD (peripheral artery disease) ([facility]) No date: Rectal cancer (HCC) No date: Sleep apnea No date: tumor of the upper jaw PAST SURGICAL HISTORY No date: ANGIOPLASTY CAROTID ARTERY [facility] Comment: Rt side 2009: CABG (5) VENOUS GRAFTS AND ARTERIAL GRAFT(S) 01/03/15: CC CORONARY STENT No date: EXCISION TONSIL LESIONS BILATERAL No date: HERNIA REPAIR HX 2009: PAST SURGICAL HISTORY OF Comment: RCEA 12/07/2023: PICC LINE INSERT/CONSULT 07-01-15: REVSC OPN/PRG FEM/POP W/ANGIOPLASTY UNI; Right 08-14-15: REVSC OPN/PRG FEM/POP W/ANGIOPLASTY UNI 07-01-15: REVSC OPN/PRQ TIB/DIANNA W/ANGIOPLASTY UNI; Right 08-14-15: REVSC OPN/PRQ TIB/DIANNA W/ANGIOPLASTY UNI Social History Tobacco Use Smoking status: Never Passive exposure: Never Smokeless tobacco: Never Vaping Use Vaping Use: Never used Substance Use Topics Alcohol use: No Drug use: No FAMILY HISTORY Problem Relation Age of Onset Diabetes Mother Cancer Mother 40 breast Coronary Artery Disease Father Hypertension Father Lipids Father Cancer Father 57 leukemia MEDICATIONS: Current Outpatient Medications Medication Sig tamsulosin (FLOMAX) 0.4 mg Take 0.8 mg by mouth once daily. clopidogrel (PLAVIX) 75 mg tablet Take 1 tablet by mouth once daily. acetaminophen (TYLENOL) 325 mg tablet Take 2 tablets by mouth every 6 hours. amLODIPine (NORVASC) 10 mg tablet Take 1 tablet by mouth once daily. aspirin 81 mg chewable tablet Take 1 tablet by mouth once daily. carvedilol (COREG) 12.5 mg tablet Take 1 tablet by mouth two times a day. dextrose (TRUEPLUS) 15 gram/32 mL oral gel Take 32 mL by mouth as needed. DULoxetine (CYMBALTA) 60 mg capsule Take 1 capsule by mouth daily at bedtime. insulin glargine 100 unit/mL (3 mL) Inject 30 Units subcutaneously every morning. insulin lispro 100 unit/mL injection Inject 3 Units subcutaneously with meals. ipratropium-albuterol (DUONEB) 0.5 mg-3 mg(2.5 mg base)/3 mL nebu Inhale 3 mL as instructed every 6 hours as needed for wheezing/shortness of breath. labetalol (NORMODYNE) 5 mg/mL injection Inject 1 mL intravenously every 4 hours as needed (SBP > 160 only if HR < 90). lidocaine (SALONPAS) 4 % patch Apply 1 Patch as directed once daily. OLANZapine orally disintegrating (ZYPREXA ZYDIS) 5 mg disintegrating tablet Take 0.5 tablets by mouth every 8 hours as needed. ondansetron, PF, (ZOFRAN) 4 mg/2 mL soln Inject 4 mg intravenously every 6 hours as needed. pantoprazole DR (PROTONIX) 40 mg tablet Take 1 tablet by mouth daily at 6 am. piperacillin-tazobactam (ZOSYN) 3.375 gram/50 mL in dextrose (iso-osmotic) Inject 50 mL intravenously every 6 hours. Patient should start on January 01, 2024. rosuvastatin (CRESTOR) 40 mg tablet Take 1 tablet by mouth daily at bedtime. zinc oxide-cod liver oil (DESITIN 40%) 40 % paste Apply 1 application to affected area as needed. melatonin 3 mg tablet Take 2 tablets by mouth one time only for 1 dose. No current facility-administered medications for this visit. LABS: GLUCOSE UA (POCT) 250 01/15/2020 BILIRUBIN UA (POCT) Negative 01/15/2020 KETONE UA (POCT) Negative (more content not included)...[facility]06-26-2024 Telephone encounter Note* Telephone Encounter - Gregorio Villalobos RN - 01/31/2024 2:36 PM EDT [facility] COORDINATION TELEPHONE ENCOUNTER Spoke to nurse practitioner regarding in person vs virtual follow up visit. From a surgical standpoint and wound check the pt can do a virtual visit per Dr. Kimble. [facility]06-26-2024 Miscellaneous Notes* Telephone Encounter - Gregorio Villalobos RN - 01/31/2024 2:36 PM EDT [facility] COORDINATION TELEPHONE ENCOUNTER Spoke to nurse practitioner regarding in person vs virtual follow up visit. From a surgical standpoint and wound check the pt can do a virtual visit per Dr. Kimble. [facility] History of Present illness Narrative* Carmelita Lai - 01/04/2024 9:52 AM EDT Strong copat stop date No follow up needed documented [facility] History of Present illness Narrative* Drew Montemayor MD - 12/29/2023 10:21 AM EDT Images from the original note were not included. [facility] Outpatient Parenteral Antimicrobial Therapy (OPAT) Start Form Patient Info Patient MRN Patient Name Address Date of [id number] Isaias Vega [address] [place] [address] 1955 Start Date 12/29/2023 Physician Group Cc_main Diagnosis Group Diagnosis GI/Hepatobiliary/Peritoneal: Intra-abdominal abscess Micro-organism ENTEROCOCCUS IV Antibiotics Antibiotic Dose Frequency Stop Date Daptomycin 600 mg every 24 hours 01/01/2024 Piperacillin-Tazobactam 3.375 grams every 6 hours 01/01/2024 Lab Monitoring Plan CBC/diff every Monday while on Daptomycin Piperacillin-tazobactam BMP every Monday while on Daptomycin Piperacillin-tazobactam Liver Function Tests every Monday while on Piperacillin-tazobactam Creatinine Kinase every Monday while on Daptomycin CPK every Monday OPAT Pharmacy Consult Yes Cath Care Protocol Flush IV line with 10 mL of normal saline (0.9%) before and after each dose of medication or at a minimum once daily. Flush IV line with 10-20 mL of normal saline (0.9%) after lab draw. Labs may be drawn on Monday if Monday is a holiday. Follow up Provider Follow up date/time Appointment type Drew Montemayor MD No Follow Up Provider Monitoring Treatment Course Drwe Montemayor MD Address [address] [place] [address] Prescribing Provider's signature - electronically signed by Drew Montemayor MD on 12/29/23 at 10:25 AM documented in this [facility]04[facility] Discharge summary Author Roberto Lockhart [facility] December 01, 2023 10:00pm Note Date/Time December 01, 2023 5:1 8pm [facility] Medical Records Department [address] [place] [id number] Emergency Department Summary 12/01/23 MR#: [id number] Acct: [id number] Name: YONY VEGA Rep #:[id number] : 1955 68 From: Roberto Nolasco PCP: Dr. Kendy Modi MD Status:REG ER Location: ED HPI <SHUBHAM Villa - Last Filed: 12/01/23 21:08> History of Present Illness Chief Complaint: Abd Pain Narrative Narrative: Patient is a 68-year-old male with history of 2 CVA with left-sided hemiplegia, diabetes, on Eliquis, history of rectal cancer who has ileostomy for 3 years presenting to the emerged part with right lower quadrant abdominal pain. Patient was seen here for mechanical fall diagnosed with hip contusion on November 29, 2023. Patient does have some bruising looks old to the right lower abdomen where he states he is hurting. Denies any fever chills nausea or vomiting. He is currently at a rehab facility. He denies any blood in his stoma. 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 Cancer Cardiology follow-up encounter Carotid artery disease Colorectal cancer CPAP (continuous positive airway pressure) dependence CVA (cerebral vascular accident) Depression Diabetic neuropathy Dietary restriction Dyslipidemia Dysphagia Essential hypertension Gastric reflux GERD (gastroesophageal reflux disease) High cholesterol History of echocardiogram History of heart attack History of pain when walking History of stress test HTN (hypertension) Injury of back Injury of head and neck 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 Leg cramps Loss of hearing Non-smoker Obstructive sleep apnea Orthostatic hypotension ALEJANDRO (obstructive sleep apnea) Peripheral vascular occlusive disease Restless legs Restrictive lung disease Shortness of breath on exertion Syncope Type 2 diabetes mellitus Walker as ambulation aid Wears glasses Home Medications aspirin 81 mg chewable tablet 81 mg PO DAILY heart health 03/20/16 [History Last Taken 03/10/23] omeprazole 40 mg capsule,delayed release 40 mg PO DAILY gerd 01/09/20 [History Last Taken 03/10/23] fluticasone propionate 50 mcg/actuation nasal spray,suspension (Flonase Allergy Relief) 1 spray intranasal DAILY PRN allergies 12/17/20 [History Last Taken 09/22/21] gabapentin 300 mg capsule 300 mg PO DAILY neuropathy 12/17/20 [History Last Taken 03/10/23] insulin lispro 100 unit/mL subcutaneous pen (Humalog KwikPen (U-100) Insulin) See Rx Instructions subcut .COMPLEX diabetes 09/26/21 [History Last Taken 03/10/23] nitroglycerin 0.4 mg sublingual tablet 0.4 mg sublingual Q5M PRN chest pain #25 tabs 10/15/21 [Rx Last Taken Unknown] rosuvastatin 20 mg tablet 20 mg PO QHS cholesterol #90 tabs 02/13/23 [Rx Last Taken 03/10/23] peg 400-propylene glycol (PF) 0.4 %-0.3 % eye drops in a dropperette (Lubricant Eye (PG-PEG 400) (PF)) 1 drp EACH EYE DAILY PRN dry eye(s) 03/10/23 [History Last Taken Unknown] duloxetine 60 mg capsule,delayed release 30 mg (1/2 x 60 mg) PO DAILY depression#30 caps 03/12/23 [Rx Last Taken 03/10/23] carvedilol 6.25 mg tablet 6.25 mg PO BID #180 tabs 09/28/23 [Rx Last Taken Unknown] clopidogrel 75 mg tablet 75 mg PO DAILY blood thinner #90 tabs 10/10/23 [Rx Last Taken Unknown] insulin glargine-yfgn 100 unit/mL (3 mL) subcutaneous pen (Semglee (insulin glargine-yfgn) Pen) 50 unit subcut BID 11/11/23 [History Last Taken Unknown] Allergy/AdvReac Type Severity Reaction Status Date / Time No Known Allergies Allergy Verified 11/29/23 11:30 Family History Father CAD (coronary artery disease) Hypertension Cancer leukemia Diabetes Heart disease High cholesterol Mother CVA (cerebral vascular accident) Diabetes Breast cancer Brother Diabetes Surgical History Excision Max.Zygoma Face Tumor H/O coronary artery bypass surgery (05/30/08) History of bilateral cataract extraction History of coronary artery stent placement (01/02/15) History of eye surgery History of herniorrhaphy History of left heart catheterization (LHC) (~01/22/15) History of right and left heart catheterization (LHC) (~12/25/14) History of right-sided carotid endarterectomy History of tonsillectomy PTCA Left Anterior Tibial and Paroneal Artery Social History Smoking Status: Never smoker alcohol intake: never substance use type: does not use caffeine: Yes what type of physical activity do you participate in: none ROS <SHUBHAM Villa - Last Filed: 12/01/23 21:08> ROS ED ROS Narrative Constitutional: Negative for fever, chills, weight loss, weakness Eyes: Negative for vision loss, vision change, double vision ENT: Negative for any sore throat, ear pain, congestion Cardiovascular: Negative for any chest pain, tightness, palpitations Respiratory: Negative for any cough, sputum production, hemoptysis, dyspnea, dyspnea on exertion, orthopnea Gastrointestinal: Negative for any nausea, vomiting, diarrhea, constipation, blood in stool, blood in vomit. Positive for lower abdominal pain, right lower quadrant : Negative for any urinary frequency, dysuria, retention, blood in urine Muscle skeletal: Negative for any neck pain, back pain Neurological: Negative for any headache, syncope, dizziness Skin: Negative for any rashes, itching, abrasions, lacerations Psychiatric: Negative for any depression, anxiety, stress, suicidal ideation, homicidal ideation Hematologic: Negative for any excessive bruising, easy bleeding EXAM <SHUBHAM Villa - Last Filed: 12/01/23 21:08> Physical Exam Narrative Exam Narrative: Vital signs reviewed. Patient is alert and orient x 4. Patient is acting appropriate. HEET: Head normocephalic atraumatic, TMs clear bilaterally. Posterior pharynx is clear, moist mucous membranes. Nares clear bilaterally. Neck: Supple with no lymphadenopathy or tenderness. No signs of meningismus. Patient does have a well-healing surgical incision to the right carotid area just above the clavicle where he had stenting completed of the carotid Cardiac: Regular rate and rhythm no murmurs gallops or rubs, equal peripheral pulses bilaterally. Respiratory: Lungs clear to auscultation bilaterally. No chest tenderness. Abdomen: Soft, tenderness to the right lower quadrant, there is some ecchymosis that is light-colored around the area where he hurts. Patient's stoma does produce stool that is darker brown. No alejandro red blood. Active bowel sounds. Nondistended. No abdominal bruit or pulsatile masses. No hepatosplenomegaly Extremities: No peripheral edema, no signs of gross trauma or deformity. Activefull range of motion of all extremities. Neuro: Cranial nerves II through XII intact, no focal neurological deficits. Skin: Clean dry and intact with no rash, purpura, petechiae, vesicles or pustules. Backs/flank: No CVA tenderness, no midline spinal tenderness, no deformity. Psych: Normal mood and affect. No SI, HI or acute psychosis. Const Vital Signs: 12/01/23 16:39 12/01/23 16:53 12/01/23 18:19 Temperature 98 F 98.2 F Temperature Source Temporal Oral Pulse Rate 77 77 72 Respiratory Rate 18 18 16 Blood Pressure 111/60 106/58 L 138/63 H Blood Pressure Mean 77 74 88 Pulse Ox 93 91 93 Oxygen Delivery Method Room Air Room Air Room Air <Dr. Roberto Lockhart DO - Last Filed: 12/01/23 22:00> Physical Exam Const Vital Signs: 12/01/23 16:39 12/01/23 16:53 12/01/23 18:19 Temperature 98 F 98.2 F Temperature Source Temporal Oral Pulse Rate 77 77 72 Respiratory Rate 18 18 16 Blood Pressure 111/60 106/58 L 138/63 H Blood Pressure Mean 77 74 88 Pulse Ox 93 91 93 Oxygen Delivery Method Room Air Room Air Room Air MDM <SHUBHAM Villa - Last Filed: 12/01/23 21:08> [facility] Lab Data Labs: Laboratory Results - last 24 hr 12/01/23 12/01/23 17:00 18:30 WBC 15.8 H RBC 3.51 L Hgb 9.8 L Hct 30.6 L MCV 87.2 MCH 27.9 MCHC 32.0 RDW Std Deviation 50.8 H RDW Coeff of Maia 15.9 H Plt Count 350 MPV 10.5 Immature Gran % (Auto) 0.500 Neut % (Auto) 87.6 H Lymph % (Auto) 4.7 L Ford % (Auto) 6.8 Eos % (Auto) 0.1 Baso % (Auto) 0.3 Absolute Neuts (auto) 13.8 H Absolute Lymphs (auto) 0.74 L Nucleated RBC % 0.1 PT 25.0 H INR 2.3 Sodium 133 L Potassium 4.2 Chloride 99 Carbon Dioxide 29.0 Anion Gap 5 BUN 48 H Creatinine 1.30 Estim Creat Clear Calc 47.55 Est GFR (MDRD) Af Amer 71 Est GFR (MDRD) Non-Af 59 L BUN/Creatinine Ratio 36.9 H Glucose 233 H Calcium 9.1 Total Bilirubin 0.60 AST 268 H ALT 295 H Alkaline Phosphatase 101 Total Protein 7.0 Albumin 2.4 L Globulin 4.6 H Albumin/Globulin Ratio 0.5 L Lipase 21 Urine Color Yellow Urine Clarity Clear Urine pH 5.0 Ur Specific [place] 1.010 Urine Protein 15 H Urine Glucose (UA) Normal Urine Ketones Negative Urine Occult Blood 10 H Urine Nitrite Negative Urine Bilirubin Negative Urine Urobilinogen Normal Ur Leukocyte Esterase Negative Urine RBC 0 SEEN Urine WBC 0 SEEN Ur Squamous Epith Cells 0 SEEN Urine Bacteria 0 SEEN Urine Mucus 0 SEEN Radiography Diagnostic Testing: Clinical Impression(s) from Imaging Studies Abdomen/Pelvis CT 12/01/23 17:15 IMPRESSION: 1. Moderate to high-grade small bowel obstruction, possibly due to adhesions. 2. Cholelithiasis. 3. Hepatic steatosis. Electronically Signed: Alta Lemus MD at 18:41 EDT Reading Location ID and State: [id number] / Tel , Service support , ADDENDUM: 12/01/23 1903 IMPRESSION: 1. Moderate to high-grade small bowel obstruction, possibly due to adhesions. 2. Cholelithiasis. 3. Hepatic steatosis. N.B. : Dwayne Marshall NP, confirmed on 12/01/2023 18:56:12 (ET) that the referring physician received the results and does not require a verbal communication. Electronically Signed: Alta Lemus MD at 18:41 EDT Reading Location ID and State: [id number] / Tel , Service support , KUB X-Ray 12/01/23 19:50 IMPRESSION: NG tube tip projecting cephalad over the stomach fundus. Minimally prominent air-filled small bowel loops midabdomen. Consider upright or crosstable lateral views to assess for air-fluid levels if clinically concerned. No appreciable free air in this limited assessment. Electronically Signed: Etienne Whyte DO at 21:06 EDT , Treatment and Re-Evaluation :: Differential diagnosis includes however is not limited to: Pneumoperitoneum, appendicitis, bowel obstruction, diverticulitis, muscle strain Patient appears to be in no obvious respiratory distress, vital signs are stable, patient appears nontoxic. Presenting to the emerged part with right lower quadrant abdominal pain. Patient will receive a CT scan of the abdomen pelvis with IV contrast, patient will receive some basic laboratory values including a PT/INR. Patient will be reevaluated Patient's CBC shows a leukocytosis white blood count of 15.8, hemoglobin 9.8, this appears to be chronic. Patient's PT was 25.0 with an INR 2.3. Patient's chemistries show a glucose of 233, patient's AST is 268 with an ALT of 295, thisis elevated from November 28 when the AST was 18 and ALT was 21 lipase was negative. Patient's urinalysis was negative for any infection. Patient CT scanof the abdomen pelvis shows a moderate to high-grade small bowel obstruction possibly due to adhesions. Cholelithiasis, hepatic steatosis. At this time, patient did have a ileostomy placed in 2016 by a physician in [facility]. I will reach out to surgery. I did speak with surgery, the patient is slightly complicated secondary to beingon multiple blood thinners, there is concern because of the recent surgery from a carotid artery stent the patient could have difficulty bleeding during surgery. It was surgery's recommendation to try and transfer to [facility] where he received a ileostomy. Patient will have a NG tube placed. I was able to speak with Dr. Chin, general surgery at [facility] she will accept the patient. Patient was given NG tube, all CT images and x-ray images will be transported with the patient. Patient made aware that he will be transferred. Currently waiting on a bed for transport. Patient remains stable, <Dr. Roberto Lockhart, DO - Last Filed: 12/01/23 22:00> [facility] Lab Data Labs: Laboratory Results - last 24 hr 12/01/23 12/01/23 17:00 18:30 WBC 15.8 H RBC 3.51 L Hgb 9.8 L Hct 30.6 L MCV 87.2 MCH 27.9 MCHC 32.0 RDW Std Deviation 50.8 H RDW Coeff of Maia 15.9 H Plt Count 350 MPV 10.5 Immature Gran % (Auto) 0.500 Neut % (Auto) 87.6 H Lymph % (Auto) 4.7 L Ford % (Auto) 6.8 Eos % (Auto) 0.1 Baso % (Auto) 0.3 Absolute Neuts (auto) 13.8 H Absolute Lymphs (auto) 0.74 L Nucleated RBC % 0.1 PT 25.0 H INR 2.3 Sodium 133 L Potassium 4.2 Chloride 99 Carbon Dioxide 29.0 Anion Gap 5 BUN 48 H Creatinine 1.30 Estim Creat Clear Calc 47.55 Est GFR (MDRD) Af Amer 71 Est GFR (MDRD) Non-Af 59 L BUN/Creatinine Ratio 36.9 H Glucose 233 H Calcium 9.1 Total Bilirubin 0.60 AST 268 H ALT 295 H Alkaline Phosphatase 101 Total Protein 7.0 Albumin 2.4 L Globulin 4.6 H Albumin/Globulin Ratio 0.5 L Lipase 21 Urine Color Yellow Urine Clarity Clear Urine pH 5.0 Ur Specific [place] 1.010 Urine Protein 15 H Urine Glucose (UA) Normal Urine Ketones Negative Urine Occult Blood 10 H Urine Nitrite Negative Urine Bilirubin Negative Urine Urobilinogen Normal Ur Leukocyte Esterase Negative Urine RBC 0 SEEN Urine WBC 0 SEEN Ur Squamous Epith Cells 0 SEEN Urine Bacteria 0 SEEN Urine Mucus 0 SEEN Radiography Diagnostic Testing: Clinical Impression(s) from Imaging Studies Abdomen/Pelvis CT 12/01/23 17:15 IMPRESSION: 1. Moderate to high-grade small bowel obstruction, possibly due to adhesions. 2. Cholelithiasis. 3. Hepatic steatosis. Electronically Signed: Alta Lemus MD at 18:41 EDT Reading Location ID and State: Leanne Cagle MD Tel , Service support , ADDENDUM: 12/01/23 1903 IMPRESSION: 1. Moderate to high-grade small bowel obstruction, possibly due to adhesions. 2. Cholelithiasis. 3. Hepatic steatosis. N.B. : Dwayne Marshall NP, confirmed on 12/01/2023 18:56:12 (ET) that the referring physician received the results and does not require a verbal communication. Electronically Signed: Alta Lemus MD at 18:41 EDT Reading Location ID and State: Leanne Cagle MD Tel , Service support , KUB X-Ray 12/01/23 19:50 IMPRESSION: NG tube tip projecting cephalad over the stomach fundus. Minimally prominent air-filled small bowel loops midabdomen. Consider upright or crosstable lateral views to assess for air-fluid levels if clinically concerned. No appreciable free air in this limited assessment. Electronically Signed: Etienne Whyte, DO at 21:06 EDT , Treatment and Re-Evaluation :: Differential diagnosis includes however is not limited to: Pneumoperitoneum, appendicitis, bowel obstruction, diverticulitis, muscle strain Patient appears to be in no obvious respiratory distress, vital signs are stable, patient appears nontoxic. Presenting to the emerged part with right lower quadrant abdominal pain. Patient will receive a CT scan of the abdomen pelvis with IV contrast, patient will receive some basic laboratory values including a PT/INR. Patient will be reevaluated Patient's CBC shows a leukocytosis white blood count of 15.8, hemoglobin 9.8, this appears to be chronic. Patient's PT was 25.0 with an INR 2.3. Patient's chemistries show a glucose of 233, patient's AST is 268 with an ALT of 295, thisis elevated from November 28 when the AST was 18 and ALT was 21 lipase was negative. Patient's urinalysis was negative for any infection. Patient CT scanof the abdomen pelvis shows a moderate to high-grade small bowel obstruction possibly due to adhesions. Cholelithiasis, hepatic steatosis. At this time, patient did have a ileostomy placed in 2017 by a physician in [facility]. I will reach out to surgery. I did speak with surgery, the patient is slightly complicated secondary to beingon multiple blood thinners, there is concern because of the recent surgery from a carotid artery stent the patient could have difficulty bleeding during surgery. It was surgery's recommendation to try and transfer to [facility] where he received a ileostomy. Patient will have a NG tube placed. I was able to speak with Dr. Chin, general surgery at [facility] she will accept the patient. Patient was given NG tube, all CT images and x-ray images will be transported with the patient. Patient made aware that he will be transferred. Currently waiting on a bed for transport. Patient remains stable, ED attending note: I evaluated the patient in conjunction with the ADRIÁN. I agree with his/her statements and above findings. I have personally performed a face to face assessment of the patient and have reviewed the ADRIÁN Note. I performed a substantive portion of the visit including all aspects of the following. I personally saw the patient performed chart review, physical exam, reviewed labs,imaging (if obtained), and formulated a treatment and management plan. Discharge Plan Triage Chief Complaint: Abd Pain ED Midlevel Provider: Dwayne Marshall ED Provider: Roberto Lockhart Dx/Rx/DC Orders Prescriptions: No Action gabapentin 300 mg capsule 300 mg PO DAILY fluticasone propionate [Flonase Allergy Relief] 50 mcg/actuation spray,suspension 1 spray intranasal DAILY PRN (Reason: allergies) Rx Instructions: administer into each nostril nitroglycerin 0.4 mg tablet, sublingual 0.4 mg sublingual Q5M PRN (Reason: chest pain) Qty: 25 3RF Rx Instructions: do not exceed 3 doses per episode aspirin 81 MG tablet,chewable 81 mg PO DAILY Patient Comments: heart health omeprazole 40 MG capsule,delayed release(DR/EC) 40 mg PO DAILY insulin lispro [Humalog KwikPen Insulin] 100 unit/mL insulin pen See Rx Instructions SC .COMPLEX Rx Instructions: Take 17 units each meal plus sliding scale up to 65 units daily Lubricant Eye (PG-PEG 400)(PF) 0.4-0.3 % dropperette 1 drp EACH EYE DAILY PRN (Reason: dry eye(s)) duloxetine 60 MG capsule,delayed release(DR/EC) 30 mg PO DAILY Qty: 30 1RF Patient Comments: antidepressant insulin glargine-yfgn [Semglee(insulin glarg-yfgn)Pen] 100 unit/mL (3 mL) insulin pen 50 unit subcut BID rosuvastatin 20 mg tablet 20 mg PO QHS Qty: 90 3RF carvedilol 6.25 mg tablet 6.25 mg PO BID Qty: 180 3RF Rx Instructions: must administer with a meal/food clopidogrel 75 mg tablet 75 mg PO DAILY Qty: 90 3RF Primary Care Provider: Kendy Modi Referrals: Kendy Modi MD [Primary Care Provider] - What to do if you have Problems For any increased pain, shortness of breath, bleeding, nausea or vomiting, chestpain, or any unexpected problems, contact your Primary Care Provider. Call [facility] ([phone]) or report to the closest Emergency Room. Call 911 if necessary. 12/01/232199 <Electronically signed by Roberto Lockhart DO> Cosigner Signature (if applicable): 12/01/232156 <Electronically signed by Dwayne MONTOYAC> CC: Dr. Kendy Modi MD ~ Signed [facility] Work Phone: [phone] 689-403404-23-2024 Hospital course Narrative* Jaleel Navarrete APRN-CLOUD DEVELOPER - 11/28/2023 11:14 AM EDT Discharge Summary Name: Yony Vega Age: 68 y.o. Birthday: 1955 Admit Date: 11/12/2023 2:26 AM Discharge Date: 11/28/23 Discharge Time: 11:14 AM Discharge Unit: [facility] Admission Information Admitting Physician: Joselito Mora MD Discharge Information Discharge Physician: Boom Ford MD Problem List Active Hospital Problems Diagnosis Stroke Carotid artery stenosis Type 2 Diabetes (A1C > 6.49%) Resolved Hospital Problems No resolved problems to display. Brief Summary of Hospital Course for Discharge Summary: Yony Vega is a 68 y.o. male with a history of CAD s/p 5 CABG (2007), CVA (2008, 2011, 2014), SANTANA s/p right CEA 2011, PAD with previous angioplasties to B/L Les, and DM2 who presented with left-sided facial droop, worsening numbness, and dysarthria. Found to have acute to subacute right frontal lobe and right occipital lobe, remote infarct in the medial right cerebellum, and multiple remote lacunar infarcts. Carotid duplex with 70-99% right ICA stenosis, 1-49% left ICA stenosis. Evaluated by cardiology for new Paroxysmal Atrial Fibrillation and pre-operative risk stratification. TTE withnormal regional wall motion & global systolic function, LVEF 58%; normal RV size & function, RA normal. Nuclear stress teset negative. Given previous right CEA, right TCAR was recommended. Patient was taken to the OR on 11/15/2022 for right TCAR per Dr. Ford Intraoperative findings include: Right TCAR, 6x30 stent, Left femoral vein access. The patient tolerated the procedure well. Patient admitted to [facility] [place] [facility] operatively for frequent neurovascular checks and close hemodynamic monitoring. Patient's hospital course was complicated by Paroxysmal Atrial Fibrillation, right neck hematoma, NSTEMI, acute hypoxic respiratory failure, and TIA Paroxysmal Atrial Fibrillation: Noted on telemetry review. [id number]. Cardiology recommended titration of betablocker, anticoagulation, and 30 day event monitor at discharge. Remained in NSR during hospitalization. Right neck hematoma: noted on POD #0. Patient had no neurological changes or airway compromise. Hematoma was monitored and resolved without intervention. NSTEMI: Developed chest pain on 11/[address] depressions. Troponin peaked at 3685. Previous stress test on 11/13 negative. Left heart cath performed on 11/19 revealing patent coronary bypass grafts. After discussion with cardiology patient will NOT restart anticoagulation while on DAPT. Acute hypoxic and hypercarbic respiratory failure: Developed hypoxia with increase oxygen requirements concurrently with NSTEMI. CXR with bilateral infiltrates. Likely secondary to NSTEMI. Required CPAP and diuresis. Venous duplex negative for DVT. Transitioned to Heated high flow for ongoing hypoxic respiratory failure. Required Bipap for hypercarbia. Pulmonology contacted and felt hypercarbia compensation for metabolic alkalosis from diuresis. Oxygen weaned off on 11/25/23. Remained on room air without need for CPAP. Ambulatory referral placed for sleep medicine. TIA: Developed difficulties with speech with regards to naming objects, increased left-sided weakness, and left-sided visual deficits on 11/22/23. Stroke code called and CT with patent carotid stent and no evidence of stroke. Distal carotid disease. Neurovascular felt recrudescence secondary to hypoxia. Repeat TTE without new intra cardiac thrombus, shunt, or new valvular disease. Patient was started on IV fluids and weaned as tolerated. Diet was advanced as tolerated to a regular diet. Pain was initially controlled with IV pain medication and later transitioned to an oral regimen. Home medications have been resumed, including 81 mg ASA and crestor Patient will also be discharged on plavix for a total of 30 days post TCAR. He will STOP plavix on 12/16. Patient will start Eliquis for atrial fibrillation on 12/17. Patient will be on 81 mg aspirin and 5 mg eliquis BID ongoing. The patient will be discharged to SNF per therapy recommendations. At time of discharge the patientis afebrile, hemodynamically stable, breathing comfortably, eating a regular diet with oral pain medication, voiding spontaneously, and ambulating without difficulty. The patient will follow up with Dr. Ford on 12/18/23 with carotid duplex. Patient to follow up with neurovascular on 01/16/24. Patient to follow up with established software qa system specialist in 3-4 weeks with outpatient mobile cardiac telemetry.Thepatient was given verbal and written discharge instructions and verbalized understanding. All discharge instructions and follow up information are in the patient After Visit Summary. Vitals and exam on discharge: BP 122/59 (BP Location: Left arm, BP Position: Lying) Pulse 62 Temp 98.1 F (36.7 C) (Oral) Resp 20 Ht 1.676 m (5' 6) Wt 58 kg (127 lb 13.9 oz) SpO2 94% BMI 20.64 kg/m Smoking Status Never Physical Exam General appearance: alert, cooperative, appears stated age Lungs: Unlabored on RA Heart: regular rate and rhythm Abdomen: soft, non-tender. Bowel sounds normal. No masses, no organomegaly Extremities: extremities normal, atraumatic, no cyanosis or edema, Normal ROM. Pulses: 2+ and symmetric Skin: Skin color, texture, turgor normal. No rashes or lesions, incisions: Right neck well approximated with dermabond. No hematoma. B/L groins well approximated with dermabond. Soft no hematoma Neurologic: Cranial nerves II-XII intact. Psych: appropriate mood and affect for clinical situation Brief Summary of Consults for Discharge Summary: Brief Summary of Procedures and Imaging for Discharge Summary: Summary of last selected lab results and date obtained: Lab Results Component Value Date WBC 8.74 11/28/2023 HGB 9.8 (L) 11/28/2023 HCT 30.8 (L) 11/28/2023 PLATELET 293 11/28/2023 MCV 87.0 11/28/2023 Lab Results Component Value Date SODIUM 138 11/28/2023 POTASSIUM 3.4 (L) 11/28/2023 CHLORIDE 102 11/28/2023 CO2 27 11/28/2023 BUN 16 11/28/2023 CREATSERUM 0.83 11/28/2023 GLUCOSE 73 11/28/2023 Lab Results Component Value Date ALT 18 11/13/2023 AST 26 11/13/2023 ALKPHOS 76 11/13/2023 BILITOTAL 0.3 11/13/2023 BILIDIRECT 0.1 11/13/2023 Brief Summary of Labs for Discharge Summary: Discharge Orders VASC DUPLEX CAROTID BILATERAL AMB REFERRAL TO NEUROLOGY AMB REFERRAL TO CARDIOVASCULAR MEDICINE AMB REFERRAL TO LONG-TERM FACILITY DIET CARB CONTROLLED - 60 Grams per meal Call MD at the phone number provided on your After Visit Summary at discharge Call MD for: Recurrent Low Blood Sugar Call MD for: Recurrent High Blood Sugar Glucose Management MOBILE CARDIAC TELEMETRY Current Outpatient Meds: Medication List for when you go home START taking these medications Morning Afternoon Evening Bedtime As Needed Acetaminophen 325 MG tablet Take 2 tablets by mouth every 4 hours as needed. Commonly known as: TYLENOL Last time this was given: 650 mg on November 27, 2023 8:23 PM amLODIPine 5 MG TABS Take 1 tablet by mouth daily. Commonly known as: NORVASC Last time this was given: 5 mg on November 26, 2023 8:46 AM apixaban 5 MG TABS Take 1 tablet by mouth every 12 hours. Commonly known as: ELIQUIS For diagnoses: Paroxysmal atrial fibrillation Start taking on: December 18, 2023 Pen [place] 32G X 4 MM [facility] Use new needle for each insulin injection. CHANGE how you take these medications Morning Afternoon Evening Bedtime As Needed carveDILOL 12.5 MG TABS Take 1 tablet by mouth every 12 hours. Commonly known as: COREG What changed: The strength you have reported taking of this medication has changed The quantity you have reported taking of this medication has changed How often you have reported taking this medication has changed Last time this was given: 12.5 mg on November 28, 2023 9:11 AM Insulin lispro (1 Unit Dial) 100 UNIT/ML SOPN 14 Units for Large Meal or 7 Units for Small Meal PLUS Correction Scale Subcutaneous every meal andat bedtime Doctor's comments: Correction Scale: 151-200 = 2 units 201-250 = 4 units 251-300 = 6 units 301-350 = 8 units 351-400 = 10 units Commonly known as: CARMELINA What changed: How you take your medication has changed How often you have reported taking this medication has changed additional instructions Last time this was given: 4 Units on November 27, 2023 1:05 PM Semglee 100 UNIT/ML SOPN injection Inject 25 Units under the skin 2 times daily. Hold and Contact provider if glucose is less than 80. What changed: The quantity you have reported taking of this medication has changed additional instructions Last time this was given: Ask your nurse or doctor Generic drug: insulin glargine CONTINUE taking these medications Morning Afternoon Evening Bedtime As Needed Ascorbic acid 500 MG TABS Take 1 tablet by mouth daily. Commonly known as: VITAMIN C Aspir-Low [address] tablet Take 1 tablet by mouth daily. Last time this was given: Ask your nurse or doctor Generic drug: Aspirin bisacodyl [address] Take all 4 tablets at 11am the day before surgery Commonly known as: DULCOLAX For diagnoses: Peristomal hernia Clopidogrel 75 MG TABS Take 1 tablet by mouth daily for 19 days. Commonly known as: PLAVIX Last time this was given: 75 mg on November 28, 2023 9:11 AM DULoxetine [address] capsule DR Take 1 capsule by mouth daily. Commonly known as: CYMBALTA Last time this was given: 60 mg on November 27, 2023 8:23 PM Ergocalciferol 1.25 MG (05002 UT) CAPS Take 1 capsule by mouth once a week. Commonly known as: VITAMIN D2 Gabapentin 300 MG CAPS Take 1 capsule by mouth daily. Commonly known as: NEURONTIN Last time this was given: 300 mg on November 27, 2023 8:23 PM magnesium oxide 400 MG TABS Take 1 tablet by mouth daily. Commonly known as: MAG-OX omeprazole [address] capsule Take 1 capsule by mouth daily. Commonly known as: PRILOSEC Polyethylene glycol 17 GM/SCOOP POWD powder 11 AM: Take entire contents over 2 hours as instructed. Commonly known as: MIRALAX For diagnoses: Peristomal hernia Last time this was given: Ask your nurse or doctor Rosuvastatin 20 MG TABS Take 1 tablet by mouth daily. Commonly known as: CRESTOR Last time this was given: 40 mg on November 28, 2023 9:11 AM STOP taking these medications chlorhexidine 4 % LIQD Commonly known as: HIBICLENS metroNIDAZOLE 500 MG TABS Commonly known as: FLAGYL Neomycin 500 MG TABS Commonly known as: MYCIFRADIN ROYAL JELLY PO Medication Instructions: Know your medicines Make sure you know why you are taking each medicine. Make a master list of all your medicines. Write down the medicine names and doctors' names. Includedoses and side effects too. And write down why you take each medicine. Include all prescription [id number] medicines, vitamins, and supplements. Keep this list up to date. Take a copy to each doctor visit. Know when you will run out of each medicine. Ask your pharmacist if there are ways the drugstore can remind you to refill your medicines so you do not run out. Write refill reminders on your calendar. Don't wait until you have a few pills left. Ask your pharmacist to plan your refills so that you can pharmacy picking technician all your medicines at the same time. This can mean fewer trips to the drugstore. If we have prescribed you a new medication during your stay, please contact with your primary physician for refills Follow-up: Kendy Modi MD [address] [facility] [place] [address] Schedule an appointment as soon as possible for a visit in 2 week(s) Acute coronary transition of care Please phone [phone] to schedule this video/phone visit to review your medications with a pharmacist. Follow up [facility] [address] [place], [place] [id number] Upcoming Appointments (up to five)-Some appointments for Medical Center outpatient clinics or diagnostic testing locations are not displayed below Provider Department Dept Phone 12/01/2023 9:00 AM Kady Kimble Telehealth Pre Procedure Preparation Arrive at: THIS IS A TELEPHONE VISIT, DO NOT GO TO THE CLINIC. [phone] 12/18/2023 2:30 PM [facility] Vascular Surgery [facility] [place] Arrive at: Arrive to 1st Floor Registration Desk [phone] 12/18/2023 3:45 PM Boom Ford [facility] [place] Arrive at: Arrive to 1st Floor Registration Desk [phone] 01/10/2024 8:30 AM Angeli Zarate [facility] [place] Arrive at: Arrive to 1st Floor Registration [phone] 01/16/2024 4:00 PM Schuyler Marcelino [facility] [phone] documented in this encounterU [facility] History of Present illness Narrative* SHAUN Potter - 11/28/2023 10:35 AM EDT Care Management Discharge Note Selected Continued Care - Admitted Since 11/12/2023 Destination Coordination complete. Service Provider Selected Services Address Phone Fax Patient Preferred [facility]-Term [address] [place] [address] -- -- Transport Request Mode of Transfer: S Name of Discharge Transport Company: [facility] ETA: 11/27 @ 1400 Patient medically stable for discharge per physician/medical team. Patient/Shipping And Receiving remain inagreement with the discharge plan. SHAUN Patel Roll Machine Operator * SHAUN Potter - 11/27/2023 1:44 PM EDT Placement Plan Expected Discharge Date: 11/29/2023 Referred Level of Care: retirement facility Barriers: none Current Referrals and Status 1. [facility]: reserved SW received message that patient's Medicare A&B is his primary and does not need a precert. EHMANT informed medical team and scheduled transport for 1400 on 11/27. SHAUN Patel Roll Machine Operator * SHAUN Potter - 11/27/2023 1:29 PM EDT 11/27/23 1329 Outlier Review Reviewing for: Outlier Meeting Medical Necessity: Yes Medical Necessity Summary: repeat TTE, starting anti-coagulation, snf precert Barriers: Standard Treatment/Therapy Barrier(s) Comments: SNF precert Intervention: No intervention needed Escalated to: None Required SHAUN Patel Roll Machine Operator * Nito Ordoñez OT - 11/27/2023 11:51 AM EDT Acute Occupational Therapy Treatment Prior to Admission AM-PAC Score: PRIOR LEVEL AM-PAC Activity Raw Score: 24 PRIOR LEVEL AM-PAC Mobility Raw Score: 24 Current AM-PAC score(s): CURRENT AM-PAC Activity Raw Score: 17 Based on the above AM-PAC score(s), and OT clinical judgment, discharge destination recommendation is: Long-Term Facility Barriers to discharge home: Patient needs assistance with ADLs, Patient needs assistance with IADLs(see note below), Patient needs assistance with self-care for medical condition (see note below) Mobility equipment available at home: 2 wheeled walker, rollator ADL equipment available at home: shower chair, grab bars, hand held shower hose, elevated toilet seat Equipment recommendations for discharge: to be determined Current therapy frequency recommendation(s) in acute: 5 times a week Precautions and Weightbearing Status: OT Existing Precautions/Restrictions: fall Telemetry Patient Safety Communication Prior to Visit: Nursing Subjective: I feel so much better now. Pain: General Pain Documentation (Adult, OB, Peds) Presence of Pain: denies pain/discomfort Presence of Pain Score (Auto-calculated): 0 DVPRS (Defense and Veterans Pain Rating Scale) DVPRS: Rest: 0- no pain DVPRS: Activity: 0- no pain Objective/Observation: Vitals/Vitals Responses to Treatment: 11/27/23 1215 Vitals ICU/PCU Pulse (Heart Rate) 64 Resp Rate 16 BP 153/70 MAP (mmHg) 100 mmHg O2 Device: room air ADL Assessment/Intervention: ADLs: Eating Assistance: Grooming Assistance: Contact guard assist Grooming Location: standing at sink Grooming Deficit: Wash/dry hands, Wash/dry face, Oral care, Increased time to complete, Generalizedweakness, Activity tolerance Grooming Skilled Rationale (Verbal/Tactile/Visual/Demonstration): Compensatory techniques, Technique of activity Bathing Assistance: UE Dressing Assistance: LE Dressing Assistance: Toilet Assistance: Minimal Toileting Location: urinal Toileting Deficit: Perineal hygiene, Clothing management down, Clothing management up, Grab bar use, Increased time to complete, Activity tolerance, Generalized weakness Toilet Skilled Rationale (Verbal/Tactile/Visual/Demonstration): Compensatory techniques, Technique of activity Extremity Assessments: See OT Evaluation flowsheet for Extremity Measurement updates. Balance: Sitting Balance Static Sitting-Level of Assistance: Supervision Dynamic Sitting-Level of Assistance: Standby Skilled Rationale: Verbal cues, Upright gaze/neck extension, Technique of activity Standing Balance Static Standing-Level of Assistance: Contact guard Dynamic Standing-Level of Assistance: Minimum assistance Standing-Balance Support: 2 wheeled walker Skilled Rationale: Technique of activity, Verbal cues, Upright gaze/neck extension, Initiation and execution of task, Full extension to upright positioning/posture Standing Balance Skilled Intervention/Details: standing sink side x ~10 minutes with SBA to minimumassist Skin and Edema: Mobility Assessment/Intervention: Supine to Sit Mobility [place] Level: Supine->Sit: contact guard assist Bed Features/Set-up: Supine->Sit: Head of bed elevated, Use of bed rail Skilled Rationale: Verbal cues, Upright gaze/neck extension, Technique of activity, Initiation and execution of task Sit to Supine Mobility [place] Level: Sit->Supine: contact guard assist Bed Features/Set-up: Sit->Supine: Flat Skilled Rationale: Verbal cues, Technique of activity, Initiation and execution of task Skilled Intervention/Details: Sit->Supine: verbal cues for log roll technique Transfer Assessment/Intervention: Sit to Stand Transfer [place] Level: Sit->Stand: contact guard assist Assistive Device: Sit->Stand: 2 wheeled walker Skilled Rationale: Verbal cues, Upright gaze/neck extension, Technique of activity, Initiation and execution of task, Full extension to upright positioning/posture Stand to Sit Transfer [place] Level: Stand->Sit: contact guard assist Assistive Device: Stand->Sit: 2 wheeled walker, armed chair Skilled Rationale: Verbal cues, Controlled descent for sitting, Technique of activity Functional Mobility: Functional Mobility [place] Level: Functional Mobility/Gait: contact guard assist Assistive Device: Functional Mobility/Gait: 2 wheeled walker Functional Mobility Distance: Distance needed to access restroom Ambulation Distance (Feet): 30 Functional Mobility Deficits: Activity tolerance, Balance, Generalized weakness Functional Mobility Skilled Rationale: Verbal cues, Technique of activity, Cues for increased safety Skilled Intervention/Details - Functional Mobility/Gait: to/from restroom Outcome Score(s): CURRENT AM-PAC Daily Activity Inpatient Short Form Putting on/Taking Off Lower Body Clothin - A Lot of Assistance Bathin - A Lot of Assistance Toiletin - A Little Assistance Putting on/Taking Off Upper Body Clothin - A Little Assistance Groomin - A Little Assistance Eatin - No Assistance CURRENT -PAC Activity Raw Score: 17 CURRENT AM-[facility] Activity Functional Limitation/Modifier: 50.11% Currently Impaired in Daily Activity- CK Interventions: Assessment & Plan: Pt making good progress towards established plan of care. Patient improving with grooming, toileting, functional transfers, bed mobility, and functional activity tolerance as seen above, however continues to be limited by endurance deficits, impaired balance/strength, and impaired mobility comparedto baseline. Pt would benefit from additional OT services at this time, and at discharge to increase independence with functional mobility. Pt educated on self pacing on this date. Patient Instruction/Education this session: Learners: Patient Education provided: Role of this discipline, Plan of care Teaching method: Verbal Education/Instruction Plan for next session: standing balance, LE dressing Acute OT Goals Plan of Care by Nito Ordoñez OT at 11/27/2023 11:51 AM Version 1 of 1 Problem: OT - Transfers Goal: Transfers Toilet/ Bedside Commode - Patient will transfer to/from toilet with modified independence for improved ability to safely complete ADLs. Outcome: Progressing Problem: OT - Balance Goal: Balance - Standing - Patient will perform 7 minutes of functional task in standing with modified independence and good balance to promote safety and improved balance required for self-care activities. Outcome: Progressing Problem: OT - Vision Goal: Visual Scanning Functional Mobility - Patient will use appropriate visual scanning techniqueswith no cues during functional mobility to promote safety and success during daily routine without hitting items on his right. Outcome: Progressing OT treatment consisted of the following to work and progress towards the above goal(s): OT Evaluation and Treatment Time Self Care/Home Management (ADLs) Time Entry: 26 Treating Therapist: Nito Ordoñez OT Additional Details: OT Co-Eval/Treatment Information Co-evaluation/co-treatment performed?: No simultaneous skilled care performed PPE used during patient interaction: facemask, gloves Patient location at end of session: bed with head of bed elevated, lines intact, RN aware Alarms on at end of session: none altered Needs in reach. Time In: 1151 Time Out: 1217 Total Visit Time: 26 minutes Total Treatment Time (skilled, billable minutes): 26 minutes Upon discontinuation of Acute Care Occupational Therapy Services or patient discharge from the hospital this note represents the current Occupational Therapy Discharge Summary. * Isamar Guzman, CREDIT CONSULTANT-CLOUD DEVELOPER - 11/27/2023 9:27 AM EDTSummary: Consult Sign Off [facility] Inpatient Diabetes Consults - Progress Note- TEAM 2 Impression: Uncontrolled Type 2 Diabetes Mellitus (T2DM) Admitted with Right carotid stenosis Punctuate R frontal and R occipital stroke s/p TCAR on 11/16/2023 Hx HTN, mood disorder, iron deficiency, right-sided carotid endarterectomy (2008), CAD/CABG (2007, Stent placed in 2014, Bypass in 2007), strokes (2008, 2011) DM microvascular complications: retinopathy and peripheral neuropathy A1c on admission: 7.8% Risk: .None CONSULT SIGN OFF Thank you for allowing us to participate in the care of this patient. Our consult team will sign off today. Patient is meeting hospital target 140-180 most of the time. If primary team having difficulty keeping patient within hospital targets after making 10-20% insulin adjustments, please contact our team for additional assistance. Additional consult does not need placed. Contact us closer to discharge for final recs. For provider collection correspondent, please use QGENDA : TEAM 2 Clinical Practice Guideline Inpatient Management of Diabetes Mellitus (DM): Non- Adults Plan 1. Hospital Plan: Glucoses close to target when insulin timing and carb coverage appropriate. Spoke at length with nursing. Patient falls asleep often before eating and then eats late and glucose is old and he forgets to call out for carb coverage. Nursing is going to try having dietary deliver tray to nursing station and have patient call out when he is ready to eat for improved insulin timing. Appreciate nursing working to troubleshoot these issues. Basal: Glargine 30 units Q12H Prandial: Insulin lispro: 1 unit for every 5 grams of carbs ACHS and PRN Correction: Insulin Lispro: 1 unit(s) per every 25 mg/dL above 150 mg/dL ACHS 2. Discharge Plan: 11/28 to SNF Please contact our team on day of discharge for definitive recs. QGENDA :TEAM 2 Tentative discharge plan: (Please use the Diabetes Discharge Order Set: Diabetes Orders - for those patients discharged on INSULIN) - If orals or non-insulin injectables recommended, will need to order them outside of the Diabetes Orderset. - Discharge Diet: DIET CARB CONTROLLED- 60 Grams per Meal - Patient Education: Your target blood sugar is 80-130 mg/dl fasting and under 180 mg/dl nonfasting. - Basal/Mealtime - Basal: U100 Glargine PENS with needles, dose 30 units Q12H. (Or insurance covered equivalent.) Titration: per facility - Mealtime time insulin: FixedvsFlexible: Fixed: U100 Lispro Pens with Pen [place] MAX DAILY DOSE TBD 14 Units for Large Meal or 7 Units for Small Meal OR 1 unit per every 5 grams of carbs PLUS Correction Scale Subcutaneous every meal and at bedtime Correction Scale: (Copy and paste into Note to Pharmacy) 151-200 = 2 units 201-250 = 4 units 251-300 = 6 units 301-350 = 8 units 351-400 = 10 units -Diabetes Supplies: - Does not need new scripts for supplies. - The patient will need script for new glucometer: no: Patient prefers any brand or substitute brand covered by insurance -Continuous Glucose Monitoring Devices: - NA -Other Diabetes Supplies: - Glucagon (Baqsimi Two Pack) 3 MG/DOSE Powder 3. Follow up needed: Does not need [facility] Endocrinology appt PCP after discharge from facility 4. Education: Not seen 5. Will review glucoses and discuss with Dr Harris as needed Thank you for allowing us to participate in your patient's care. For provider collection correspondent: QMARJORIEA : TEAM 2 CC: hyperglycemia History of Present Illness: Yony Vega is a 68 y.o. year old male who is NOT seen at the bedside. Chart and glucose flow sheet reviewed. He is eating well, 44-89 g CHO. Creatinine normal. Has had some insulin timing issues. Patient falls asleep often before eating and then eats late and glucose is old and he forgets to call out for carb coverage. Nursing is going to try having dietary deliver tray to nursing station and have patient call out when he is ready to eat for improved insulin timing. Current Diet Orders Procedures DIET CARB CONTROLLED Standing Status: Standing Number of Occurrences: 1 Current Regimen: Basal: Glargine 30 units Q12H Prandial: Insulin lispro: 1 unit for every 5 grams of carbs ACHS and PRN Correction: Insulin Lispro: 1 unit(s) per every 25 mg/dL above 150 mg/dL ACHS Daily Glucose Review: Date Daily glucose review TDD Basal Prandial/ Correction 11/19/2023 304, 363, 250, 273, 250, 32 12 20 11/20/2023 214, 186, 211, 220, 200, 213 38 26 12 11/21/23 204, 247, 254, 197, 226 38 20 18 11/22/23 168, 234, 174, 152, 170, 61 31 30 11/23/23 164, 195, 239, 260, 164, 146, 239, 173 64 35 29 11/24/23 257/ 212, 292(PP), 260, 225, 218 64 40 24 11/25/23 224/222, 318(PP), 267, 153, 135 100 55 45 11/26/23 159/163, 205, 200, 175 95 60 35 11/27/23 160/113 NOT SEEN Temp: [98 F (36.7 C)-98.5 F (36.9 C)] 98.1 F (36.7 C) Pulse (Heart Rate): [66-79] 68 Resp Rate: [14-20] 14 BP: (123-158)/(58-72) 134/63 O2 Sat (%): [90 %-96 %] 96 % Weight: [62.9 kg (138 lb 9.6 oz)] 62.9 kg (138 lb 9.6 oz)Admission/Adult (Dosing) Weight: 65.3 kg (144 lb) Most recent entered Weight: 62.9 kg (138 lb 9.6 oz) (standing weight) Body mass index is 22.37 kg/m . Background History Yony Vega is a 68 y.o. year old male with Type 2 Diabetes Mellitus (T2DM) diagnosed in 2019 who is seen in consultation at the request of Boom Ford MD for assistance with evaluation of hyperglycemia and to make treatment recommendations. He was interviewed at his bedside in [place]. Per review of his chart and discussion with patient he has a significant history of type 2 diabetes, CAD s/p CABG in 2007 (OSH) and stent in 2014, previous CVA c/g L-sided numbness 2/2 RCIA internal carotid artery s/p CEA ~2011, colorectal cancer s/p APR w/ LPLND (2019), and reported PAD s/p R pop,R anterior tibial angioplasties (2014) and L anterior tibial, L peroneal, and L popliteal angioplasties (2015) who presents to [facility] with L facial numbness, word slurring, and balance issues. Stroke code was called, and patient underwent carotid ultrasound showing 70-99% stenosis R JUSTUS. He was admitted with Right carotid stenosis, Punctuate R frontal and R occipital stroke and is s/p TCAR on 11/16/19 24 In regard to his history of diabetes he is taking basal bolus insulin with dosing as below. He injects in his abdomen. He notes hard spots at his injection sites at times (they last for less than 24 hours). He uses a glucose meter to monitor his blood sugar. Diabetes History: Type of Diabetes: Type 2 Diabetes Mellitus (T2DM) Diagnosis (aprox date): 2018 Outpatient Clinic: PCP Home regimen: Basal: Glargine 50 units twice daily Prandial: Lispro per a corrective scale Diabetes Complications: retinopathy and peripheral neuropathy Date of most recent dilated eye exam: was due for an appointment this admission Tobacco/Nicotine: He reports that he has never smoked. He has never used smokeless tobacco. Home blood glucoses: glucose meter: He is checking his blood sugars about 3-4 times per day Reports ranging from the 100s to 200 range typically Recent A1c: Lab Results Component Value Date HGBA1C 7.8 (H) 11/13/2023 Lab Results Component Value Date CHOLESTEROL 150 11/13/2023 TRIG 279 (H) 11/13/2023 HDL 29 (L) 11/13/2023 LDLCALC 65 11/13/2023 Lab Results Component Value Date SODIUM 136 11/27/2023 POTASSIUM 3.5 11/27/2023 CHLORIDE 101 11/27/2023 CO2 27 11/27/2023 BUN 19 11/27/2023 CREATSERUM 0.90 11/27/2023 GLUCOSE 113 (H) 11/27/2023 No results found for: CREATURINE, MICROALBUMIN, MICALBCREAT Lab Results Component Value Date ALT 18 11/13/2023 No results found for: PREALBUMIN Cardiac echo: EF = Results for orders placed during the hospital encounter of 11/12/23 ECHOCARDIOGRAM LIMITED/FOLLOWUP 11/18/2023 (Final) Interpretation Summary Limited study. The left ventricular chamber size and systolic function are normal. LVEF 55-60%. Normal LV wall motion. Grade II diastolic dysfunction. The right ventricular chamber size and systolic function are normal. Estimated RVSP 44 mmHg. * Macey Gleason, PT - 11/27/2023 8:26 AM EDT Acute Physical Therapy Treatment Prior to Admission [facility] score(s): PRIOR LEVEL AM-PAC Mobility Raw Score: 24 PRIOR LEVEL AM-PAC Activity Raw Score: 24 Current AM-PAC score(s): CURRENT AM-PAC Mobility Raw Score: 14 Based on the above AM-PAC score(s) and PT clinical judgment, patient is a good candidate for discharge to Long-Term Facility Barriers to discharge home: Lack of social support to meet functional needs at home, Patient unableto navigate stairs to enter home, Patient needs assistance with functional mobility, Lack of supervision necessary to mitigate fall risk Mobility equipment available at home: 2 wheeled walker, rollator ADL equipment available at home: shower chair, grab bars, hand held shower hose, elevated toilet seat Equipment needed for discharge: none (pt with FWW at home already) Current therapy frequency recommendation in acute: Therapy Frequency: 5 times a week Precautions and Weightbearing Status: Existing Precautions/Restrictions: cardiac, fall (TCAR precautions SBP 100-140) Telemetry (colostomy) Patient Safety Communication Prior to Visit: Nursing Subjective: Patient denied dizziness when sitting EOB, but then reported he did feel a little dizzy once safelysupine again Pain: General Pain Documentation (Adult, OB, Peds) Presence of Pain: denies pain/discomfort Presence of Pain Score (Auto-calculated): 0 DVPRS (Defense and Veterans Pain Rating Scale) DVPRS: Rest: 0- no pain Objective/Observation: Vitals/Vitals Responses to Treatment: Patient Vitals for the past 2 hrs: Temp Temp src Pulse Heart Rate Source Resp BP MAP (mmHg) BP Method BP Location BP Position SpO2 O2 Device 11/27/23 1118 98 F (36.7 C) Oral 62 Monitor 16 115/56 81 mmHg Automatic Left arm Lying 98 % room air BP dropped to MAP of 58 once sitting EOB, patient educated to perform BLE exercise to increased circulation and counter the effects of gravity. MAPs did not recover. Therefore, returned to supine position with BP recovering to >60. RN brought to room immediately to assess, RN reports he has beenorthostatic O2 Device: room air Cognition Overall Cognitive Status: (At risk) Arousal/Alertness: Appropriate responses to stimuli Orientation Level: Oriented to person, Oriented to place Cognition Comments: Pleasant, lethgaric, impaired processing Extremity Assessments: See PT Evaluation flowsheet for Extremity Measurement updates. Skin and Edema: Balance: Sitting Balance Static Sitting-Level of Assistance: Standby Dynamic Sitting-Level of Assistance: Contact guard Skilled Rationale: Verbal cues, Positioning, Hand placement, Technique of activity Sitting Balance Skilled Intervention/Details: patient required cues for improved positioning of hips and foot placement on ground for increased stability. BP taken once sitting EOB with low reading, patient instructed to perform BLE therex to increase circulation, see vitals section. Mobility Assessment/Intervention: Supine to Sit Mobility [place] Level: Supine->Sit: minimum assist (75% patient effort) Bed Features/Set-up: Supine->Sit: Head of bed elevated, Use of bed rail Skilled Rationale: Hand placement, Verbal cues, Positioning, Sequencing, Technique of activity Skilled Intervention/Details: Supine->Sit: patient required cues for improved sequencing and hand placement to increase independence in task Sit to Supine Mobility [place] Level: Sit->Supine: moderate assist (50% patient effort) Bed Features/Set-up: Sit->Supine: Flat Skilled Rationale: Positioning, Sequencing, Verbal cues, Technique of activity, Cues for increased safety Skilled Intervention/Details: Sit->Supine: cues for improved positioning and sequencing for safety. Outcome Score(s): CURRENT AM-[facility] Basic Mobility Inpatient Short Form Turning over in bed: 4 - No Assistance Moving from lying on back to sittin - A Little Assistance Moving to and from bed to chair: 2 - A Lot of Assistance Sitting/standing from chair: 2 - A Lot of Assistance Walk in hospital room: 2 - A Lot of Assistance Climbing 3-5 steps with a railin - Total Assistance CURRENT AM-[facility] Mobility Raw Score: 14 CURRENT AM-[facility] Mobility Functional Limitation: 61.29% Impaired in Basic Mobility Interventions: Intervention 1 Intervention Name: Therapeutic Exercise to increase BLE muscular strength and increase circulation for functional activity/mobility including: - LAQs - Hip flexion marches Sets/Reps/Duration: 10 reps 1 set/s Details: Pt required demonstration, tactile cues, visual cues, and verbal cues during therex for pacing, proper performance of exercise, increased muscular activation, to ensure full ROM, and improved attention to task for maximal benefit of each exercise. Assessment & Plan: Pt demonstrates worsened functional mobility in accordance with overall PT plan of care as evidenced by due to hypotension this date. However, pt continues to present below baseline functional performance due decreased strength, endurance, balance, activity intolerance, impaired attention to task, and impaired cognition. Pt would benefit from continued skilled PT to address these deficits, increase independence, and improve safe functional mobility. Patient Instruction/Education this session: Learners: Patient Education provided: Bed mobility, Functional transfers, Plan of care Plan for next session: progress independence in transfers, activity tolerance Acute PT Goals Plan of Care by Macey Gleason PT at 11/27/2023 8:08 AM Version 1 of 1 Problem: PT - General Goals Goal: Supine <-> Sit Transfers - Patient will perform supine to/from sit transfers with standby assistance and without use of hospital bed features in order to improve functional mobility and safety. Outcome: Progressing PT treatment consisted of the following to progress towards the above goal(s): PT Evaluation and Treatment Time Therapeutic Activity Time Entry: 23 Treating Therapist: Macey Gleason PT Additional Details: PT Co-Eval/Treatment Information Co-evaluation/co-treatment performed?: (mobility promoted) Assisted by during session: RN PPE used during patient interaction: gloves, protective eye shield, facemask Patient location at end of session: chair, RN aware Alarms on at end of session: none, RN aware Needs in reach. Time In: 807 Time Out: 830 Total Visit Time: 23 minutes Total Treatment Time (skilled, billable minutes): 23 minutes Upon discontinuation of Acute Care Physical Therapy Services or patient discharge from the hospitalthis note represents the current Physical Therapy Discharge Summary. * Blanca Jimenez MD - 11/27/2023 7:18 AM EDT VASCULAR SURGERY PROGRESS NOTE HPI: Yony Vega is a 68 y.o. male who presented with symptomatic right carotid stenosis. Sp right TCAR given previous R CEA on 11/15 cb NSTEMI sp LHC on 11/19. Subjective: NAEON. At neurological baseline. On RA at time of AM exam. Objective: Vital Signs: Temp: [98 F (36.7 C)-98.7 F (37.1 C)] 98 F (36.7 C) Pulse (Heart Rate): [66-79] 67 Resp Rate: [16-20] 18 BP: (119-158)/(57-72) 129/61 O2 Sat (%): [90 %-95 %] 94 % Weight: [62.9 kg (138 lb 9.6 oz)] 62.9 kg (138 lb 9.6 oz) Fluid Management: I/O last 3 completed shifts: In: 1111.2 [P.O.:1070; IV Piggyback:41.2] Out: 1175 [Urine:1025] Wt Readings from Last 3 Encounters: 11/27/23 62.9 kg (138 lb 9.6 oz) 08/29/23 67.4 kg (148 lb 11.2 oz) 07/19/23 67.1 kg (148 lb) Physical Exam: Gen: NAD, resting comfortably Neuro: CN II-XII grossly intact, no focal signs. Baseline LUE weakness Cardiac: RRR Lungs: BiPAP Abd: soft, NT, ND Incision: right neck incision soft with improved hematoma. Surrounding skin ecchymosis continued interval improvement. Left groin soft without hematoma Extremities: pink, warm, no new ulcers/wounds, no edema, 5+ motor, sensation intact in BLE Pulses: signal in RT DP/PT Labs: WBC/Hgb/Hct/Plts: 8.65/9.6/30.1/326 (11/26 38) Na/K+/Phos/Mg/Ca: 136/3.5/--/1.9/-- (11/26 38) Bun/Creat/Cl/CO2/Glucose: 19/0.90/101/27/113 (11/26 38-11/27 647) Imaging: no new imaging this morning - Venous duplex 11/19 no DVTs in BLLE Assessment & Plan: Yony Vega is a 68 y.o. male who presented with symptomatic right carotid stenosis. Found to have Punctuate R frontal and R occipital stroke . Now on 7 Days Post-Op s/p Procedure(s) (LRB): CORONARY ANGIOGRAM WITH LEFT HEART CATH (N/A) CORONARY BYPASS GRAFT ANGIOGRAM (N/A) ULTRASOUND GUIDED ACCESS (N/A) on 11/16/[address] Ford. S/p TCAR (11/15) complicated by NSTEMI ([facility] 11/19, neck hematoma, and right brain symptom recurrence Follow-up echocardiogram pending Continue nocturnal CPAP, continue to wean daytime O2 Diet: Carb controlled diet Activity: Advance as tolerated DVT ppx: SCDs Bowel Regimen: Miralax and senna daily, PRN suppository Complexity. Hypocalcemia - Continue to monitor and replete. Any conditions listed below are present on admission unless otherwise specified. . Right carotid stenosis Punctuate R frontal and R occipital stroke - S/p right TCAR - Continue 81 mg ASA and 75 mg Plavix daily Will also need anticoagulation for new afib. Eliquis check--> $0 - Patient will discharged on triple therapy for 1 month. Will stop PLAVIX after 30 days. Then Eliquis and ASA ongoing. --> currently holding heparin gtt, continuing DAPT - Continue crestor - Goal SBP 100-140 mmHg, PRNs available - Continue frequent neuro and vascular checks - PT/OT--> previously recommended SNF. Will re-evaluate post-op - Neurovasc signed off 11/16--> Cont Statin and aspirin. Follow-up with neurovasc in 1-2 weeks (ordered) Acute pain -Pain control: Scheduled tylenol PRN: oxycodone Acute blood loss anemia - Daily CBC, transfuse if less than 7 or symptomatic HLD (POA) - Continue 40mg crestor Lab Results Component Value Date CHOLESTEROL 150 11/13/2023 TRIG 279 (H) 11/13/2023 HDL 29 (L) 11/13/2023 LDLCALC 65 11/13/2023 HTN (POA) - SBP 100-140 - continues to require occasional PRNs - Cont home coreg and norvasc Mood disorder, POA - Continue home duloxetine 60 mg DM, POA - Takes insulin lispro at home - Continue SSI here - Carb controlled diet GERD, POA - Takes omeprazole at home - Continue Protonix here CAD/CABG (2007, Stent placed in 2014, Bypass in 2007) - ASA and statin as above - [facility] 11/19 without intervention Paroxymal Atrial Fibrillation - Coreg as above - [id number] at 6 - On therapeutic anticoagulation at home, will need to revisit on discharge - Cardiology follow-up in 4-6 weeks. 30 day tele monitor at discharge The patient continues to require the followings lines, tubes and drains: PIVs These are required for the following reasons: Continuation of inpatient Care PLAN - Cont DAPT - Carb controlled diet - May check DOAC. Eliquis $0/month - PT/OT for dispo planning Dispo: SNF pending precert, echo completion Blanca Jimenez MD 11/27/2023 Vascular Surgery * Isamar Guzman APRN-CLOUD DEVELOPER - 11/26/2023 11:48 AM EDT [facility] Inpatient Diabetes Consults - Progress Note- TEAM 2 Impression: Uncontrolled Type 2 Diabetes Mellitus (T2DM) Admitted with Right carotid stenosis Punctuate R frontal and R occipital stroke s/p TCAR on 11/16/2023 Hx HTN, mood disorder, iron deficiency, right-sided carotid endarterectomy (2008), CAD/CABG (2007, Stent placed in 2014, Bypass in 2007), strokes (2008, 2011) DM microvascular complications: retinopathy and peripheral neuropathy A1c on admission: 7.8% Risk: .None Plan 1. Hospital Plan: Glucoses improving when insulin given correctly but improper insulin timing leading to spikes. Getting late carb coverage. 0300 check not done again, discontinued. Without adequate carb coverage and documentation, we will not achieve blood glucose improvement and this can lead to incorrect insulin dose adjustments. Spoke at length with nursing. Patient falls asleep often before eating and then eats late and glucose is old and he forgets to call out for carb coverage. Nursing is going to try having dietary deliver tray to nursing station and have patient call out when he is ready to eat for improved insulin timing. Appreciate nursing working to troubleshoot these issues. Basal: Glargine 30 units Q12H Prandial: Insulin lispro: 1 unit for every 5 grams of carbs ACHS and PRN Correction: Insulin Lispro: 1 unit(s) per every 25 mg/dL above 150 mg/dL ACHS, 1 unit per 50 mg/dl above 200 mg/dl at 0300-> DC 2. Discharge Plan: 11/28 to SNF Please contact our team on day of discharge for definitive recs. QGENDA :TEAM 2 Tentative discharge plan: (Please use the Diabetes Discharge Order Set: Diabetes Orders - for those patients discharged on INSULIN) - If orals or non-insulin injectables recommended, will need to order them outside of the Diabetes Orderset. - Discharge Diet: DIET CARB CONTROLLED- 60 Grams per Meal - Patient Education: Your target blood sugar is 80-130 mg/dl fasting and under 180 mg/dl nonfasting. - Basal/Mealtime - Basal: U100 Glargine PENS with needles, dose TBD. (Or insurance covered equivalent.) Titration: TBD - Mealtime time insulin: FixedvsFlexible: Fixed: U100 Lispro Pens with Pen [place] MAX DAILY DOSE TBD TBD Units for Large Meal or TBD Units for Small Meal PLUS Correction Scale Subcutaneous every meal and at bedtime Correction Scale: (Copy and paste into Note to Pharmacy) 151-200 = 2 units 201-250 = 4 units 251-300 = 6 units 301-350 = 8 units 351-400 = 10 units -Diabetes Supplies: - Glucose monitoring supplies for ACHS: Glucose test strips: dispense 150 with 1 refill - Patient prefers any brand or substitute brand covered by insurance, Lancets: dispense 150 with 1 refill, and alcohol swabs: dispense 200 with 1 refill - The patient will need script for new glucometer: no: Patient prefers any brand or substitute brand covered by insurance -Continuous Glucose Monitoring Devices: - NA -Other Diabetes Supplies: - Glucagon (Baqsimi Two Pack) 3 MG/DOSE Powder 3. Follow up needed: Does not need [facility] Endocrinology appt PCP after discharge from facility 4. Education: Discussed daily plan today 5. Will review glucoses and discuss with Dr Harris as needed Thank you for allowing us to participate in your patient's care. For provider collection correspondent: CARONA : TEAM 2 CC: hyperglycemia History of Present Illness: Yony Vega is a 68 y.o. year old male who is seen at the bedside, sitting up in chair. He is eating well, 44-89 g CHO. Creatinine normal. Insulin timing issues. Drank a grape juice right before lunch check yesterday that wasn't covered. Discussed calling out for insulin immediately after eating for better coverage. I was in his room when he had finished eating and he called out for insulin and SALES FORECAST ANALYST recorded his carbs that I counted on his tray (65 grams). Almost an hour later, has not received carb coverage. Glucose check is over 90 minutes old. This has been an ongoing issue over the last 3 days at least. Current Diet Orders Procedures DIET CARB CONTROLLED Standing Status: Standing Number of Occurrences: 1 Current Regimen: Basal: Glargine 30 units Q12H Prandial: Insulin lispro: 1 unit for every 5 grams of carbs ACHS and PRN Correction: Insulin Lispro: 1 unit(s) per every 25 mg/dL above 150 mg/dL ACHS, 1 unit per 50 mg/dl above 200 mg/dl at 0300 Daily Glucose Review: Date Daily glucose review TDD Basal Prandial/ Correction 11/19/2023 304, 363, 250, 273, 250, 32 12 20 11/20/2023 214, 186, 211, 220, 200, 213 38 26 12 11/21/23 204, 247, 254, 197, 226 38 20 18 11/22/23 168, 234, 174, 152, 170, 61 31 30 11/23/23 164, 195, 239, 260, 164, 146, 239, 173 64 35 29 11/24/23 257/ 212, 292(PP), 260, 225, 218 64 40 24 11/25/23 224/222, 318(PP), 267, 153, 135 100 55 45 11/26/23 159/163, 205 Review of Systems - No symptoms of hypoglycemia Physical Exam Constitutional: Well-developed, well-nourished, overweight male in no acute distress. Pulmonary/Chest: Respirations even and unlabored on BiPAP Musculoskeletal: No acute abnormalities noted Neurological: Alert and interactive; [place] Psych: Cooperative Temp: [97.7 F (36.5 C)-98.7 F (37.1 C)] 98.4 F (36.9 C) Pulse (Heart Rate): [60-75] 66 Resp Rate: [16-21] 16 BP: (106-152)/(53-67) 149/67 O2 Sat (%): [90 %-94 %] 93 %Admission/Adult (Dosing) Weight: 65.3 kg (144 lb) Most recent entered Weight: (pt refused weight) Body mass index is 22.16 kg/m . Background History Yony Vega is a 68 y.o. year old male with Type 2 Diabetes Mellitus (T2DM) diagnosed in 2018 who is seen in consultation at the request of Boom Ford MD for assistance with evaluation of hyperglycemia and to make treatment recommendations. He was interviewed at his bedside in [place]. Per review of his chart and discussion with patient he has a significant history of type 2 diabetes, CAD s/p CABG in 2007 (OSH) and stent in 2014, previous CVA c/g L-sided numbness 2/2 RCIA internal carotid artery s/p CEA ~2011, colorectal cancer s/p APR w/ LPLND (2019), and reported PAD s/p R pop,R anterior tibial angioplasties (2014) and L anterior tibial, L peroneal, and L popliteal angioplasties (2015) who presents to [facility] with L facial numbness, word slurring, and balance issues. Stroke code was called, and patient underwent carotid ultrasound showing 70-99% stenosis R JUSTUS. He was admitted with Right carotid stenosis, Punctuate R frontal and R occipital stroke and is s/p TCAR on 11/16/19 24 In regard to his history of diabetes he is taking basal bolus insulin with dosing as below. He injects in his abdomen. He notes hard spots at his injection sites at times (they last for less than 24 hours). He uses a glucose meter to monitor his blood sugar. Diabetes History: Type of Diabetes: Type 2 Diabetes Mellitus (T2DM) Diagnosis (aprox date): 2018 Outpatient Clinic: PCP Home regimen: Basal: Glargine 50 units twice daily Prandial: Lispro per a corrective scale Diabetes Complications: retinopathy and peripheral neuropathy Date of most recent dilated eye exam: was due for an appointment this admission Tobacco/Nicotine: He reports that he has never smoked. He has never used smokeless tobacco. Home blood glucoses: glucose meter: He is checking his blood sugars about 3-4 times per day Reports ranging from the 100s to 200 range typically Recent A1c: Lab Results Component Value Date HGBA1C 7.8 (H) 11/13/2023 Lab Results Component Value Date CHOLESTEROL 150 11/13/2023 TRIG 279 (H) 11/13/2023 HDL 29 (L) 11/13/2023 LDLCALC 65 11/13/2023 Lab Results Component Value Date SODIUM 137 11/26/2023 POTASSIUM 4.1 11/26/2023 CHLORIDE 103 11/26/2023 CO2 22 11/26/2023 BUN 20 11/26/2023 CREATSERUM 0.87 11/26/2023 GLUCOSE 205 (H) 11/26/2023 No results found for: CREATURINE, MICROALBUMIN, MICALBCREAT Lab Results Component Value Date ALT 18 11/13/2023 No results found for: PREALBUMIN Cardiac echo: EF = Results for orders placed during the hospital encounter of 11/12/23 ECHOCARDIOGRAM LIMITED/FOLLOWUP 11/18/2023 (Final) Interpretation Summary Limited study. The left ventricular chamber size and systolic function are normal. LVEF 55-60%. Normal LV wall motion. Grade II diastolic dysfunction. The right ventricular chamber size and systolic function are normal. Estimated RVSP 44 mmHg. * ANTWON Healy - 11/26/2023 10:07 AM EDT Placement Plan Expected Discharge Date: 11/29/2023 Referred Level of Care: SNF Barriers: Medical ready and facility Current Referrals and Status 1. Pt. Selected [facility]. SW reserved provider. BILL Shah LISW-S IRP SW Please note that I am an IRP social sciences instructor and am not the primary social sciences instructor for this service and/or patient. Please contact primary social sciences instructor during the week for any additional needs. Contact info for weekend CM and SW staff (8:00am - 4:30pm): [facility]: CCM: [phone] / Guest Relations Receptionist: [phone] [employer]: CCM: [phone] / Guest Relations Receptionist: [phone] Ha: CCM : [phone] / Guest Relations Receptionist: [phone] Darin/KENIAU/PCU Joselito: CCM: [phone] / Guest Relations Receptionist: [phone] * Blanca Jimenez MD - 11/26/2023 8:52 AM EDT Physician Attestation: I Ralph Easley personally examined this patient and agree with the assessment above. Right neck hematoma improving after TCAR and recovering from LHC. Dispo planning VASCULAR SURGERY PROGRESS NOTE HPI: Yony Vega is a 68 y.o. male who presented with symptomatic right carotid stenosis. Sp right TCAR given previous R CEA on 11/15 cb NSTEMI sp LHC on 11/19. Subjective: NAEON. At neurological baseline. On RA at time of AM exam. Objective: Vital Signs: Temp: [97.7 F (36.5 C)-98.7 F (37.1 C)] 98.7 F (37.1 C) Pulse (Heart Rate): [60-75] 72 Resp Rate: [16-21] 18 BP: (106-145)/(53-67) 119/57 O2 Sat (%): [90 %-94 %] 94 % Fluid Management: I/O last 3 completed shifts: In: 1090 [P.O.:1090] Out: 800 [Urine:800] Wt Readings from Last 3 Encounters: 08/29/23 67.4 kg (148 lb 11.2 oz) 07/19/23 67.1 kg (148 lb) 05/24/23 65.9 kg (145 lb 3.2 oz) Physical Exam: Gen: NAD, resting comfortably Neuro: CN II-XII grossly intact, no focal signs. Baseline LUE weakness Cardiac: RRR Lungs: BiPAP Abd: soft, NT, ND Incision: right neck incision soft with improved hematoma. Surrounding skin ecchymotic and macerated. Left groin soft without hematoma Extremities: pink, warm, no new ulcers/wounds, no edema, 5+ motor, sensation intact in BLE Pulses: signal in RT DP/PT Labs: WBC/Hgb/Hct/Plts: 8.25/10.2/33.6/279 (11/25 52) Na/K+/Phos/Mg/Ca: 137/4.1/--/1.7/-- (11/25 52) Bun/Creat/Cl/CO2/Glucose: 20/0.87/103/22/159 (11/25 52) Imaging: no new imaging this morning - Venous duplex 11/19 no DVTs in BLLE Assessment & Plan: Yony Vega is a 68 y.o. male who presented with symptomatic right carotid stenosis. Found to have Punctuate R frontal and R occipital stroke . Now on 6 Days Post-Op s/p Procedure(s) (LRB): CORONARY ANGIOGRAM WITH LEFT HEART CATH (N/A) CORONARY BYPASS GRAFT ANGIOGRAM (N/A) ULTRASOUND GUIDED ACCESS (N/A) on 11/16/[address] Ford. S/p TCAR (11/15) complicated by NSTEMI ([facility] 11/19, neck hematoma, and right brain symptom recurrence Follow-up echocardiogram pending Continue nocturnal CPAP, continue to wean daytime O2 Diet: Carb controlled diet Activity: Advance as tolerated DVT ppx: SCDs Bowel Regimen: Miralax and senna daily, PRN suppository Complexity. Hypocalcemia - Continue to monitor and replete. Any conditions listed below are present on admission unless otherwise specified. . Right carotid stenosis Punctuate R frontal and R occipital stroke - S/p right TCAR - Continue 81 mg ASA and 75 mg Plavix daily Will also need anticoagulation for new afib. Eliquis check--> $0 - Patient will discharged on triple therapy for 1 month. Will stop PLAVIX after 30 days. Then Eliquis and ASA ongoing. --> currently holding heparin gtt, continuing DAPT - Continue crestor - Goal SBP 100-140 mmHg, PRNs available - Continue frequent neuro and vascular checks - PT/OT--> previously recommended SNF. Will re-evaluate post-op - Neurovasc signed off 11/16--> Cont Statin and aspirin. Follow-up with neurovasc in 1-2 weeks (ordered) Acute pain -Pain control: Scheduled tylenol PRN: oxycodone Acute blood loss anemia - Daily CBC, transfuse if less than 7 or symptomatic HLD (POA) - Continue 40mg crestor Lab Results Component Value Date CHOLESTEROL 150 11/13/2023 TRIG 279 (H) 11/13/2023 HDL 29 (L) 11/13/2023 LDLCALC 65 11/13/2023 HTN (POA) - SBP 100-140 - continues to require occasional PRNs - Cont home coreg and norvasc Mood disorder, POA - Continue home duloxetine 60 mg DM, POA - Takes insulin lispro at home - Continue SSI here - Carb controlled diet GERD, POA - Takes omeprazole at home - Continue Protonix here CAD/CABG (2007, Stent placed in 2014, Bypass in 2007) - ASA and statin as above - [facility] 11/19 without intervention Paroxymal Atrial Fibrillation - Coreg as above - [id number] at 6 - On therapeutic anticoagulation at home, will need to revisit on discharge - Cardiology follow-up in 4-6 weeks. 30 day tele monitor at discharge The patient continues to require the followings lines, tubes and drains: PIVs These are required for the following reasons: Continuation of inpatient Care PLAN - Cont DAPT - Carb controlled diet - May check DOAC. Eliquis $0/month - PT/OT for dispo planning Dispo: Continue ICU care. Dispo pending . Therapy recommending SNF. Blanca Jimenez MD 11/26/2023 Vascular Surgery, PGY-3 [phone] * Isamar Guzman, BALTAZAR-CLOUD DEVELOPER - 11/25/2023 11:00 AM EDT [facility] Inpatient Diabetes Consults - Progress Note- TEAM 2 Impression: Uncontrolled Type 2 Diabetes Mellitus (T2DM) Admitted with Right carotid stenosis Punctuate R frontal and R occipital stroke s/p TCAR on 11/16/2023 Hx HTN, mood disorder, iron deficiency, right-sided carotid endarterectomy (2008), CAD/CABG (2007, Stent placed in 2014, Bypass in 2007), strokes (2008, 2011) DM microvascular complications: retinopathy and peripheral neuropathy A1c on admission: 7.8% Risk: .None Plan 1. Hospital Plan: Glucoses globally elevated. No regular juice or pop, please. Insulin timing issues. 0300 check not done. More aggressive carb ratio and increased basal regimen. Basal: Glargine 20->25->30 units Q12H Prandial: Insulin lispro: 1 unit for every 6->5 grams of carbs ACHS and PRN Correction: Insulin Lispro: 1 unit(s) per every 25 mg/dL above 150 mg/dL ACHS, 1 unit per 50 mg/dl above 200 mg/dl at 0300 2. Discharge Plan: Please contact our team on day of discharge for definitive recs. MAXIMINO :TEAM 2 Tentative discharge plan: (Please use the Diabetes Discharge Order Set: Diabetes Orders - for those patients discharged on INSULIN) - If orals or non-insulin injectables recommended, will need to order them outside of the Diabetes Orderset. - Discharge Diet: DIET CARB CONTROLLED- 60 Grams per Meal - Patient Education: Your target blood sugar is 80-130 mg/dl fasting and under 180 mg/dl nonfasting. - Basal/Mealtime - Basal: U100 Glargine PENS with needles, dose TBD. (Or insurance covered equivalent.) Titration: TBD - Mealtime time insulin: FixedvsFlexible: Fixed: U100 Lispro Pens with Pen [place] MAX DAILY DOSE TBD TBD Units for Large Meal or TBD Units for Small Meal PLUS Correction Scale Subcutaneous every meal and at bedtime Correction Scale: (Copy and paste into Note to Pharmacy) 151-200 = 2 units 201-250 = 4 units 251-300 = 6 units 301-350 = 8 units 351-400 = 10 units -Diabetes Supplies: - Glucose monitoring supplies for ACHS: Glucose test strips: dispense 150 with 1 refill - Patient prefers any brand or substitute brand covered by insurance, Lancets: dispense 150 with 1 refill, and alcohol swabs: dispense 200 with 1 refill - The patient will need script for new glucometer: no: Patient prefers any brand or substitute brand covered by insurance -Continuous Glucose Monitoring Devices: - NA -Other Diabetes Supplies: - Glucagon (Baqsimi Two Pack) 3 MG/DOSE Powder 3. Follow up needed: PCP within 1- 2 weeks 1-2 weeks in [facility] at [facility] (12th floor). To schedule this appt call the [facility] at [phone] Option #3. 4. Education: Discussed daily plan today 5. Will review glucoses and discuss with Dr Harris as needed Thank you for allowing us to participate in your patient's care. For provider collection correspondent: QGENDA : TEAM 2 CC: hyperglycemia History of Present Illness: Yony Vega is a 68 y.o. year old male who is seen at the bedside with son and DIL present, sitting up in chair. He is eating well, 30-52 g CHO. Creatinine normal. Insulin timing issues. Drank a grape juice right before lunch check that wasn't covered. Discussed calling out for insulin immediately after eating for better coverage. Current Diet Orders Procedures DIET CARB CONTROLLED Standing Status: Standing Number of Occurrences: 1 Current Regimen: Basal: Glargine 20 units Q12H Prandial: Insulin lispro: 1 unit for every 6 grams of carbs ACHS and PRN Correction: Insulin Lispro: 1 unit(s) per every 25 mg/dL above 150 mg/dL ACHS, 1 unit per 50 mg/dl above 200 mg/dl at 0300 Daily Glucose Review: Date Daily glucose review TDD Basal Prandial/ Correction 11/19/2023 304, 363, 250, 273, 250, 32 12 20 11/20/2023 214, 186, 211, 220, 200, 213 38 26 12 11/21/23 204, 247, 254, 197, 226 38 20 18 11/22/23 168, 234, 174, 152, 170, 61 31 30 11/23/23 164, 195, 239, 260, 164, 146, 239, 173 64 35 29 11/24/23 257/ 212, 292(PP), 260, 225, 218 64 40 24 11/25/23 224/222, 318(PP), 267 Review of Systems - No symptoms of hypoglycemia Physical Exam Constitutional: Well-developed, well-nourished, overweight male in no acute distress. Pulmonary/Chest: Respirations even and unlabored on BiPAP Musculoskeletal: No acute abnormalities noted Neurological: Alert and interactive; KEWEENAW Psych: Cooperative Temp: [97.7 F (36.5 C)-98.4 F (36.9 C)] 97.7 F (36.5 C) Pulse (Heart Rate): [59-67] 60 Resp Rate: [7-20] 16 BP: (116-147)/(56-67) 126/60 O2 Sat (%): [90 %-96 %] 92 %Admission/Adult (Dosing) Weight: 65.3 kg (144 lb) Most recent entered Weight: (pt refused told me no and bed scale doesnt work i notfied rn) Body mass index is 22.16 kg/m . Background History Yony Vega is a 68 y.o. year old male with Type 2 Diabetes Mellitus (T2DM) diagnosed in 2018 who is seen in consultation at the request of Boom Ford MD for assistance with evaluation of hyperglycemia and to make treatment recommendations. He was interviewed at his bedside in [place]. Per review of his chart and discussion with patient he has a significant history of type 2 diabetes, CAD s/p CABG in 2007 (OSH) and stent in 2014, previous CVA c/g L-sided numbness 2/ RCIA internal carotid artery s/p CEA ~2011, colorectal cancer s/p APR w/ LPLND (2019), and reported PAD s/p R pop,R anterior tibial angioplasties (2014) and L anterior tibial, L peroneal, and L popliteal angioplasties (2015) who presents to [facility] with L facial numbness, word slurring, and balance issues. Stroke code was called, and patient underwent carotid ultrasound showing 70-99% stenosis R JUSTUS. He was admitted with Right carotid stenosis, Punctuate R frontal and R occipital stroke and is s/p TCAR on 11/16/19 24 In regard to his history of diabetes he is taking basal bolus insulin with dosing as below. He injects in his abdomen. He notes hard spots at his injection sites at times (they last for less than 24 hours). He uses a glucose meter to monitor his blood sugar. Diabetes History: Type of Diabetes: Type 2 Diabetes Mellitus (T2DM) Diagnosis (aprox date): 2018 Outpatient Clinic: PCP Home regimen: Basal: Glargine 50 units twice daily Prandial: Lispro per a corrective scale Diabetes Complications: retinopathy and peripheral neuropathy Date of most recent dilated eye exam: was due for an appointment this admission Tobacco/Nicotine: He reports that he has never smoked. He has never used smokeless tobacco. Home blood glucoses: glucose meter: He is checking his blood sugars about 3-4 times per day Reports ranging from the 100s to 200 range typically Recent A1c: Lab Results Component Value Date HGBA1C 7.8 (H) 11/13/2023 Lab Results Component Value Date CHOLESTEROL 150 11/13/2023 TRIG 279 (H) 11/13/2023 HDL 29 (L) 11/13/2023 LDLCALC 65 11/13/2023 Lab Results Component Value Date SODIUM 137 11/25/2023 POTASSIUM 4.1 11/25/2023 CHLORIDE 101 11/25/2023 CO2 24 11/25/2023 BUN 20 11/25/2023 CREATSERUM 0.91 11/25/2023 GLUCOSE 267 (H) 11/25/2023 No results found for: CREATURINE, MICROALBUMIN, MICALBCREAT Lab Results Component Value Date ALT 18 11/13/2023 No results found for: PREALBUMIN Cardiac echo: EF = Results for orders placed during the hospital encounter of 11/12/23 ECHOCARDIOGRAM LIMITED/FOLLOWUP 11/18/2023 (Final) Interpretation Summary Limited study. The left ventricular chamber size and systolic function are normal. LVEF 55-60%. Normal LV wall motion. Grade II diastolic dysfunction. The right ventricular chamber size and systolic function are normal. Estimated RVSP 44 mmHg. * SHAUN Blackwell - 11/25/2023 9:59 AM EDT Placement Plan Expected Discharge Date: Referred Level of Care: SNF Barriers: patient choice, pre cert, transportation Current Referrals and Status 1. [facility]; Accepted 2. [facility]; Accepted SW met with pt at bedside. He had the list of facilities to choose from and reported his was coming today to make a choice. SW stated they would stop by this afternoon or pt can have RN notify SW when choice is made today. Addendum 1425: SW met with pt at bedside. He reported his has not been in yet and will have medical team reach out when they have a decision. SW will continue to follow for discharge planning. Abigail Payne MSW, INSOLE DOUBLER IRP Guest Relations Receptionist Please note that I am a float SW and may not be covering the same unit each day. Please reach out to the floor/unit SW for additional needs/concerns. Contact info for weekend CM and SW staff (8:00am - 4:30pm): [facility]: CCM: / Guest Relations Receptionist: Jinny: CCM: / Guest Relations Receptionist: Ha: CCM : / Guest Relations Receptionist: Darin/MICU/PCU Joselito: CCM: / Guest Relations Receptionist: * Blanca Jimenez MD - 11/25/2023 8:03 AM EDT Physician Attestation: I Ralph Easley personally examined this patient and agree with the assessment above. TCAR complicated by NSTEMI and neck hematoma and recurrence of his right brain symptoms. Weaning O2 and planning SNF placement VASCULAR SURGERY PROGRESS NOTE HPI: Yony Vega is a 68 y.o. male who presented with symptomatic right carotid stenosis. Sp right TCAR given previous R CEA on 11/15 cb NSTEMI sp LHC on 11/19. Subjective: NAEON. At neurological baseline. On 1L NC at time of AM exam. Diamox yesterday Objective: Vital Signs: Temp: [98 F (36.7 C)-98.4 F (36.9 C)] 98.4 F (36.9 C) Pulse (Heart Rate): [59-67] 64 Resp Rate: [7-20] 7 BP: (116-156)/(56-68) 126/60 O2 Sat (%): [90 %-98 %] 91 % Fluid Management: I/O last 3 completed shifts: In: 140.4 [P.O.:100; IV Piggyback:40.4] Out: 2224 [Urine:2024] Wt Readings from Last 3 Encounters: 11/24/23 62.3 kg (137 lb 4.8 oz) 08/29/23 67.4 kg (148 lb 11.2 oz) 07/19/23 67.1 kg (148 lb) Physical Exam: Gen: NAD, resting comfortably Neuro: CN II-XII grossly intact, no focal signs. Baseline LUE weakness Cardiac: RRR Lungs: BiPAP Abd: soft, NT, ND Incision: right neck incision soft with improved hematoma. Surrounding skin ecchymotic and macerated. Left groin soft without hematoma Extremities: pink, warm, no new ulcers/wounds, no edema, 5+ motor, sensation intact in BLE Pulses: signal in RT DP/PT Labs: WBC/Hgb/Hct/Plts: 6.76/9.8/31.2/285 (11/24 1) Na/K+/Phos/Mg/Ca: 137/4.1/--/2.1/-- (11/24 1) Bun/Creat/Cl/CO2/Glucose: 20/0.91/101/24/224 (11/24 1) Imaging: no new imaging this morning - Venous duplex 11/19 no DVTs in BLLE Assessment & Plan: Yony Vega is a 68 y.o. male who presented with symptomatic right carotid stenosis. Found to have Punctuate R frontal and R occipital stroke . Now on 5 Days Post-Op s/p Procedure(s) (LRB): CORONARY ANGIOGRAM WITH LEFT HEART CATH (N/A) CORONARY BYPASS GRAFT ANGIOGRAM (N/A) ULTRASOUND GUIDED ACCESS (N/A) on 11/16/[address] Ford. Follow-up echocardiogram pending Continue nocturnal CPAP Diet: Carb controlled diet Activity: Advance as tolerated DVT ppx: SCDs Bowel Regimen: Miralax and senna daily, PRN suppository Complexity. Hypocalcemia - Continue to monitor and replete. Any conditions listed below are present on admission unless otherwise specified. . Right carotid stenosis Punctuate R frontal and R occipital stroke - S/p right TCAR - Continue 81 mg ASA and 75 mg Plavix daily Will also need anticoagulation for new afib. Eliquis check--> $0 - Patient will discharged on triple therapy for 1 month. Will stop PLAVIX after 30 days. Then Eliquis and ASA ongoing. --> currently holding heparin gtt, continuing DAPT - Continue crestor - Goal SBP 100-140 mmHg, PRNs available - Continue frequent neuro and vascular checks - PT/OT--> previously recommended SNF. Will re-evaluate post-op - Neurovasc signed off 11/16--> Cont Statin and aspirin. Follow-up with neurovasc in 1-2 weeks (ordered) Acute pain -Pain control: Scheduled tylenol PRN: oxycodone Acute blood loss anemia - Daily CBC, transfuse if less than 7 or symptomatic HLD (POA) - Continue 40mg crestor Lab Results Component Value Date CHOLESTEROL 150 11/13/2023 TRIG 279 (H) 11/13/2023 HDL 29 (L) 11/13/2023 LDLCALC 65 11/13/2023 HTN (POA) - SBP 100-140 - continues to require occasional PRNs - Cont home coreg and norvasc Mood disorder, POA - Continue home duloxetine 60 mg DM, POA - Takes insulin lispro at home - Continue SSI here - Carb controlled diet GERD, POA - Takes omeprazole at home - Continue Protonix here CAD/CABG (2007, Stent placed in 2014, Bypass in 2007) - ASA and statin as above - sp [facility] 11/19 without intervention Paroxymal Atrial Fibrillation - Coreg as above - [id number] at 6 - On therapeutic anticoagulation at home, will need to revisit on discharge - Cardiology follow-up in 4-6 weeks. 30 day tele monitor at discharge The patient continues to require the followings lines, tubes and drains: PIVs These are required for the following reasons: Continuation of inpatient Care PLAN - Cont DAPT - Carb controlled diet - May check DOAC. Eliquis $0/month - PT/OT for dispo planning Dispo: Continue ICU care. Dispo pending . Therapy recommending SNF. Blanca Jimenez MD 11/25/2023 Vascular Surgery, PGY-3 [phone] * Melanie Weaver RN - 11/24/2023 1:11 PM EDT Case Management Updates: Still on oxygen. Per PA feels like patient is compensating for being fluid overloaded. Still on/offbipap. Consult to pulmonary. Neck hematoma continues to resolve. SW working on SNF placement. Dispo: SNF once pre-cert obtained. JIM Rivera, RN Clinical Wire Straightening Machine Operator * Paris Gonzalez MD - 11/24/2023 10:59 AM EDT Seen and examined on rounds. Coming down on oxygen but still on/off bipap. Will engage pulmonary. Neck hematoma continues to resolve. * Nito Ordoñez OT - 11/24/2023 10:19 AM EDT Acute Occupational Therapy Treatment Prior to Admission AM-PAC Score: PRIOR LEVEL AM-PAC Activity Raw Score: 24 PRIOR LEVEL AM-PAC Mobility Raw Score: 24 Current AM-PAC score(s): CURRENT AM-PAC Activity Raw Score: 17 Based on the above AM-PAC score(s), and OT clinical judgment, discharge destination recommendation is: Long-Term Facility Barriers to discharge home: Patient needs assistance with ADLs, Patient needs assistance with IADLs(see note below), Patient needs assistance with self-care for medical condition (see note below) Mobility equipment available at home: 2 wheeled walker, rollator ADL equipment available at home: shower chair, grab bars, hand held shower hose, elevated toilet seat Equipment recommendations for discharge: to be determined Current therapy frequency recommendation(s) in acute: 5 times a week Precautions and Weightbearing Status: OT Existing Precautions/Restrictions: supplemental oxygen, fall, cardiac Telemetry Patient Safety Communication Prior to Visit: Nursing Subjective: I am feeling better today. Pain: General Pain Documentation (Adult, OB, Peds) Presence of Pain: denies pain/discomfort Presence of Pain Score (Auto-calculated): 0 DVPRS (Defense and Veterans Pain Rating Scale) DVPRS: Rest: 0- no pain DVPRS: Activity: 0- no pain Objective/Observation: Vitals/Vitals Responses to Treatment: Vitals WFL with no abnormal signs or symptoms reported or observed throughout session O2 Device: nasal cannula Cognition Overall Cognitive Status: Within Functional Limits (at risk) Arousal/Alertness: Appropriate responses to stimuli Orientation Level: Oriented X4 Following Commands: Follows one step commands without difficulty Safety Judgment: Decreased awareness of need for safety, Decreased awareness of need for assistance Awareness of Errors: Decreased awareness of errors Deficits: Decreased awareness of deficits Attention Span: Appears intact Memory: Appears intact Problem Solving: Able to problem solve independently Cognition Comments: Pt pleasant and cooperative throughout session. ADL Assessment/Intervention: ADLs: Eating Assistance: Grooming Assistance: Minimal Grooming Location: standing at sink Grooming Deficit: Wash/dry hands, Wash/dry face, Oral care, Increased time to complete, Activity tolerance, Generalized weakness Grooming Skilled Rationale (Verbal/Tactile/Visual/Demonstration): Compensatory techniques, Cues forincreased safety, Technique of activity, Facilitate postural control Bathing Assistance: UE Dressing Assistance: LE Dressing Assistance: Stand by LE Dressing Location: seated in chair LE Dressing Deficit: Don/doff R sock, Don/doff L sock, Increased time to complete, Activity tolerance, Generalized weakness LE Dressing Skilled Rationale (Verbal/Tactile/Visual/Demonstration): Compensatory techniques, Cues for increased safety, Technique of activity LE Dressing Intervention/Details: demonstrated modified figure 4 position Toilet Assistance: Minimal Toileting Location: urinal Toileting Deficit: Clothing management up, Clothing management down, Perineal hygiene, Increased time to complete, Activity tolerance, Generalized weakness Toilet Skilled Rationale (Verbal/Tactile/Visual/Demonstration): Compensatory techniques, Technique of activity Extremity Assessments: See OT Evaluation flowsheet for Extremity Measurement updates. Balance: Sitting Balance Static Sitting-Level of Assistance: Supervision Dynamic Sitting-Level of Assistance: Supervision Skilled Rationale: Verbal cues Standing Balance Static Standing-Level of Assistance: Minimum assistance Dynamic Standing-Level of Assistance: Minimum assistance Standing-Balance Support: 2 wheeled walker Skilled Rationale: Verbal cues, Upright gaze/neck extension, Technique of activity, Initiation and execution of task Standing Balance Skilled Intervention/Details: standing sink side x ~7 minutes. Skin and Edema: Mobility Assessment/Intervention: Sit to Supine Mobility [place] Level: Sit->Supine: minimum assist (75% patient effort) Bed Features/Set-up: Sit->Supine: Flat Skilled Rationale: Verbal cues, Technique of activity, Initiation and execution of task Transfer Assessment/Intervention: Sit to Stand Transfer [place] Level: Sit->Stand: minimum assist (75% patient effort) Physical Assist: Sit->Stand: 2 person assist Assistive Device: Sit->Stand: 2 wheeled walker, armed chair Skilled Rationale: Verbal cues, Upright gaze/neck extension, Technique of activity, Initiation and execution of task, Full extension to upright positioning/posture, Cues for increased safety Skilled Intervention/Details: Sit->Stand: x3 reps; cues to rock forward and count to 3 to gain momentum in preparation for ascent with tactile cues provided at hips/knees to reduce risk of posterior LOB. Progressing to minimum assist x 1 Stand to Sit Transfer [place] Level: Stand->Sit: minimum assist (75% patient effort) Physical Assist: Stand->Sit: 2 person assist Assistive Device: Stand->Sit: 2 wheeled walker, armed chair Skilled Rationale: Verbal cues, Controlled descent for sitting, Technique of activity, Cues for increased safety Functional Mobility: Functional Mobility [place] Level: Functional Mobility/Gait: minimum assist (75% patient effort) Physical Assist: Functional Mobility/Gait: 1 person + 1 person to manage equipment Assistive Device: Functional Mobility/Gait: 2 wheeled walker, gait belt Functional Mobility Distance: Distance needed to access restroom Functional Mobility Deficits: Activity tolerance, Balance, Follow safety/precautions Functional Mobility Skilled Rationale: Verbal cues, Upright gaze/neck extension, Technique of activity, Cues for increased safety, Finding/maintaining midline positioning Skilled Intervention/Details - Functional Mobility/Gait: Pt ambulated ~70 feet with minimum assist x 1+1 with 2WW. Pt noted make quick and big movements making a decrease in balance. Outcome Score(s): CURRENT [facility] Daily Activity Inpatient Short Form Putting on/Taking Off Lower Body Clothin - A Lot of Assistance Bathin - A Lot of Assistance Toiletin - A Little Assistance Putting on/Taking Off Upper Body Clothin - A Little Assistance Groomin - A Little Assistance Eatin - No Assistance CURRENT [facility] Activity Raw Score: 17 CURRENT [facility] Activity Functional Limitation/Modifier: 50.11% Currently Impaired in Daily Activity- CK Interventions: Assessment & Plan: Pt making good progress towards established plan of care. Patient improving with grooming, lower body dressing, toileting, functional transfers, bed mobility, and functional activity tolerance as seen above, however continues to be limited by endurance deficits, impaired balance/strength, and impaired mobility compared to baseline. Pt would benefit from additional OT services at this time, and atdischarge to increase independence with functional mobility. Pt educated on progression on this date. Patient Instruction/Education this session: Learners: Patient Education provided: Role of this discipline, Plan of care Teaching method: Verbal Education/Instruction Plan for next session: standing ADLs and balance training Acute OT Goals Plan of Care by Nito Ordoñez OT at 11/24/2023 9:43 AM Version 1 of 1 Problem: OT - Transfers Goal: Transfers Toilet/ Bedside Commode - Patient will transfer to/from toilet with modified independence for improved ability to safely complete ADLs. Outcome: Progressing Problem: OT - Balance Goal: Balance - Standing - Patient will perform 7 minutes of functional task in standing with modified independence and good balance to promote safety and improved balance required for self-care activities. Outcome: Progressing Problem: OT - Vision Goal: Visual Scanning Functional Mobility - Patient will use appropriate visual scanning techniqueswith no cues during functional mobility to promote safety and success during daily routine without hitting items on his right. Outcome: Progressing OT treatment consisted of the following to work and progress towards the above goal(s): OT Evaluation and Treatment Time Self Care/Home Management (ADLs) Time Entry: 39 Treating Therapist: Nito Ordoñez OT Additional Details: OT Co-Eval/Treatment Information Co-evaluation/co-treatment performed?: Yes, simultaneous billable skilled care was necessary due tomedical complexity and functional deficits Other discipline: PT Rationale for need to co-eval/treat: postural control Co-treatment goal focus: transfer, endurance Non-billable assistance during session: Karlan, S/PT PPE used during patient interaction: gloves, facemask Patient location at end of session: bed with head of bed elevated Alarms on at end of session: none altered Needs in reach. Time In: 942 Time Out: 1022 Total Visit Time: 39 minutes Total Treatment Time (skilled, billable minutes): 39 minutes Upon discontinuation of Acute Care Occupational Therapy Services or patient discharge from the hospital this note represents the current Occupational Therapy Discharge Summary. * Blanca Jimenez MD - 11/24/2023 9:57 AM EDT VASCULAR SURGERY PROGRESS NOTE HPI: Yony Vega is a 68 y.o. male who presented with symptomatic right carotid stenosis. Sp right TCAR given previous R CEA on 11/15 cb NSTEMI sp LHC on 11/19. Subjective: NAEON. At neurological baseline. Continued on bipap overnight, at time of exam on 3L HHFNC. Objective: Vital Signs: Temp: [95.5 F (35.3 C)-98.5 F (36.9 C)] 98.5 F (36.9 C) Pulse (Heart Rate): [59-78] 62 Resp Rate: [9-29] 16 BP: (121-168)/(57-75) 156/68 O2 Sat (%): [91 %-98 %] 96 % Weight: [62.3 kg (137 lb 4.8 oz)] 62.3 kg (137 lb 4.8 oz) Fluid Management: I/O last 3 completed shifts: In: 1122.6 [P.O.:1100; IV Piggyback:22.6] Out: 1475 [Urine:1125] Wt Readings from Last 3 Encounters: 11/24/23 62.3 kg (137 lb 4.8 oz) 08/29/23 67.4 kg (148 lb 11.2 oz) 07/19/23 67.1 kg (148 lb) Physical Exam: Gen: NAD, resting comfortably Neuro: CN II-XII grossly intact, no focal signs. Baseline LUE weakness Cardiac: RRR Lungs: BiPAP Abd: soft, NT, ND Incision: right neck incision soft with improved hematoma. Surrounding skin ecchymotic and macerated. Left groin soft without hematoma Extremities: pink, warm, no new ulcers/wounds, no edema, 5+ motor, sensation intact in BLE Pulses: signal in RT DP/PT Labs: WBC/Hgb/Hct/Plts: 5.36/9.4/29.0/267 (11/23 14) Na/K+/Phos/Mg/Ca: 135/4.3/--/1.9/-- (11/23 14) Bun/Creat/Cl/CO2/Glucose: 24/0.89/93/32/212 (11/23 0015-11/23 0901) Imaging: no new imaging this morning - Venous duplex 11/19 no DVTs in BLLE - CXR yesterday showing improvement in pulmonary edema Assessment & Plan: Yony Vega is a 68 y.o. male who presented with symptomatic right carotid stenosis. Found to have Punctuate R frontal and R occipital stroke . Now on 4 Days Post-Op s/p Procedure(s) (LRB): CORONARY ANGIOGRAM WITH LEFT HEART CATH (N/A) CORONARY BYPASS GRAFT ANGIOGRAM (N/A) ULTRASOUND GUIDED ACCESS (N/A) on 11/16/[address] Ford. Follow-up echocardiogram pending Continued diuresis with lasix today Pulm consult for recommendations regarding ongoing hypercarbia, recommendations for continuation ofCPAP v. Bipap Diet: Carb controlled diet Activity: Advance as tolerated DVT ppx: SCDs Bowel Regimen: Miralax and senna daily, PRN suppository Complexity. Hypocalcemia - Continue to monitor and replete. Any conditions listed below are present on admission unless otherwise specified. . Right carotid stenosis Punctuate R frontal and R occipital stroke - S/p right TCAR - Continue 81 mg ASA and 75 mg Plavix daily Will also need anticoagulation for new afib. Eliquis check--> $0 - Patient will discharged on triple therapy for 1 month. Will stop PLAVIX after 30 days. Then Eliquis and ASA ongoing. --> currently holding heparin gtt, continuing DAPT - Continue crestor - Goal SBP 100-140 mmHg, PRNs available - Continue frequent neuro and vascular checks - PT/OT--> previously recommended SNF. Will re-evaluate post-op - Neurovasc signed off 11/16--> Cont Statin and aspirin. Follow-up with neurovasc in 1-2 weeks (ordered) Acute pain -Pain control: Scheduled tylenol PRN: oxycodone Acute blood loss anemia - Daily CBC, transfuse if less than 7 or symptomatic HLD (POA) - Continue 40mg crestor Lab Results Component Value Date CHOLESTEROL 150 11/13/2023 TRIG 279 (H) 11/13/2023 HDL 29 (L) 11/13/2023 LDLCALC 65 11/13/2023 HTN (POA) - SBP 100-140 - continues to require occasional PRNs - Cont home coreg and norvasc Mood disorder, POA - Continue home duloxetine 60 mg DM, POA - Takes insulin lispro at home - Continue SSI here - Carb controlled diet GERD, POA - Takes omeprazole at home - Continue Protonix here CAD/CABG (2007, Stent placed in 2014, Bypass in 2007) - ASA and statin as above - sp [facility] 11/19 without intervention Paroxymal Atrial Fibrillation - Coreg as above - [id number] at 6 - On therapeutic anticoagulation at home, will need to revisit on discharge - Cardiology follow-up in 4-6 weeks. 30 day tele monitor at discharge The patient continues to require the followings lines, tubes and drains: PIVs These are required for the following reasons: Continuation of inpatient Care PLAN - Cont DAPT - Carb controlled diet - May check DOAC. Eliquis $0/month - PT/OT for dispo planning Dispo: Continue ICU care. Dispo pending . Therapy recommending SNF. Blanca Jimenez MD 11/24/2023 Vascular Surgery, PGY-3 [phone] * Johny Boss - 11/24/2023 9:43 AM EDT Acute Physical Therapy Treatment Prior to Admission [facility] score(s): PRIOR LEVEL AM-PAC Mobility Raw Score: 24 PRIOR LEVEL AM-PAC Activity Raw Score: 24 Current AM-PAC score(s): CURRENT AM-PAC Mobility Raw Score: 17 Based on the above AM-PAC score(s) and PT clinical judgment, patient is a good candidate for discharge to Long-Term Facility Pt is a very high fall risk with frequent fall history and is home alone during day as spouse works away from home. Pt is unsafe to return home without adequate fall risk supervision. Barriers to discharge home: Lack of social support to meet functional needs at home, Patient unableto navigate stairs to enter home, Patient needs assistance with functional mobility, Lack of supervision necessary to mitigate fall risk Nursing Notes: Pt requires 1 with chair follow person assistance + Wheeled walker to perform 35 feet (x2) of Ambulation this date Mobility equipment available at home: 2 wheeled walker, rollator ADL equipment available at home: shower chair, grab bars, hand held shower hose, elevated toilet seat Equipment needed for discharge: none (pt with FWW at home already) Current therapy frequency recommendation in acute: Therapy Frequency: 5 times a week Activity Recommendations for outside of rehab session: to chair for all meals Precautions and Weightbearing Status: Existing Precautions/Restrictions: cardiac, fall, supplemental oxygen (TCAR precautions, SBP 100-140) Telemetry Patient Safety Communication Prior to Visit: Nursing Subjective: Pt alert and agreeable to participating in PT. Pt stated that felt good after ambulation in [place]. Pain: General Pain Documentation (Adult, OB, Peds) Presence of Pain: denies pain/discomfort Presence of Pain Score (Auto-calculated): 0 DVPRS (Defense and Veterans Pain Rating Scale) DVPRS: Rest: 0- no pain DVPRS: Activity: 0- no pain Objective/Observation: Vitals/Vitals Responses to Treatment: Vitals Heart Rate (bpm) SpO2 (%) Bp (mmHg) Vitals taken sitting in bedside chair 62 96 156/68 MAP: 98 Vitals taken after ambulation 64 - - MAP: - Vitals WFL with no abnormal signs or symptoms reported or observed throughout session. O2 Device: nasal cannula Flow (L/min): 3 Cognition Overall Cognitive Status: Within Functional Limits Arousal/Alertness: Appropriate responses to stimuli Orientation Level: Oriented to person (did not specifically assess remaining orientation) Following Commands: Follows one step commands with repetition Safety Judgment: Decreased awareness of need for assistance, Decreased awareness of need for safety Awareness of Errors: Assistance required to identify errors made Deficits: Decreased awareness of deficits Attention Span: Appears intact Extremity Assessments: See PT Evaluation flowsheet for Extremity Measurement updates. Balance: Sitting Balance Static Sitting-Level of Assistance: Standby Dynamic Sitting-Level of Assistance: Standby Skilled Rationale: Verbal cues, Sequencing, Facilitate anterior shift, Full extension to upright positioning/posture, Upright gaze/neck extension, Initiation and execution of task, Cues for increasedsafety Sitting Balance Skilled Intervention/Details: Pt cued to maintain sitting balance while EOB before initiating sit to supine, no over loss of balance, ~2 min Standing Balance Static Standing-Level of Assistance: Minimum assistance Dynamic Standing-Level of Assistance: Minimum assistance Standing-Balance Support: Gait belt, 2 wheeled walker Skilled Rationale: Positioning, Sequencing, Hand placement, Verbal cues, Facilitate anterior shift,Full extension to upright positioning/posture, Technique of activity, Initiation and execution of task, Cues for increased safety Standing Balance Skilled Intervention/Details: Pt cued to maintain safety while standing with walker and while standing at sink, frequent impulsive and quick movements that impair balance and lead toinstability, stood at sink for 7min with Karla to maintain balance Mobility Assessment/Intervention: Sit to Supine Mobility [place] Level: Sit->Supine: minimum assist (75% patient effort) Physical Assist: Sit->Supine: 2 person assist Bed Features/Set-up: Sit->Supine: Flat Skilled Rationale: Verbal cues, Positioning, Sequencing, Technique of activity, Initiation and execution of task, Cues for increased safety Skilled Intervention/Details: Sit->Supine: Pt cued for log roll technique to return to supine, bilat LE support to manage into bed and trunk guidance Transfer Assessment/Intervention: Sit to Stand Transfer [place] Level: Sit->Stand: minimum assist (75% patient effort) Physical Assist: Sit->Stand: 2 person assist, 1 person + 1 person to manage equipment (progressed to Karla of 1+1) Assistive Device: Sit->Stand: gait belt, 2 wheeled walker Skilled Rationale: Positioning, Sequencing, Hand placement, Verbal cues, Cues for increased safety,Facilitate anterior shift, Full extension to upright positioning/posture Skilled Intervention/Details: Sit->Stand: x2 from recliner, pt cued for safe hand placement eachseated break, requires cues for slow and controlled movements Stand to Sit Transfer [place] Level: Stand->Sit: minimum assist (75% patient effort) Physical Assist: Stand->Sit: 1 person + 1 person to manage equipment Assistive Device: Stand->Sit: gait belt, 2 wheeled walker Skilled Rationale: Positioning, Sequencing, Hand placement, Verbal cues, Controlled descent for sitting, Cues for increased safety Skilled Intervention/Details: Stand->Sit: Pt cued for safe hand placement before initiating transfer to recliner, x1 to recliner, x1 to EOB, pt required physical hand placement for safety and cuesfor slow and controlled movement Gait/Functional Mobility Assessment/Intervention: Gait Assessment [place] Level: Gait: minimum assist (75% patient effort) Physical Assist: Gait: chair follow, 1 person + 1 person to manage equipment Assistive Device: Gait: gait belt, 2 wheeled walker Ambulation Distance (Feet): 35 (x2) Gait Deviations Identified: ataxic, right, decreased jomar, decreased gait speed, decreased heel strike, flexed posture, increased postural sway, scissoring, narrow base of support (mild scissoringwith cross over, some L foot drop noted) Gait Skilled Rationale: tactile, verbal, upright posture, increase step width, improve foot placement, increase foot clearance, keeping hands on assistive device, safety to avoid obstacles, proximityof assistive device Skilled Intervention/Details - Gait: Pt cued for improved foot placement and for slow and controlled movement. Pt with impulsive motions with rapid turns leading to postural instability and multidirectional loss of balance. Pt cued to maintain walker within base of support for safety. Pt with frequent downward gaze despite cues for upright gaze self-attributed to long-term impaired peripheral vision. Outcome Score(s): CURRENT [facility] Basic Mobility Inpatient Short Form Turning over in bed: 4 - No Assistance Moving from lying on back to sittin - A Little Assistance Moving to and from bed to chair: 3 - A Little Assistance Sitting/standing from chair: 3 - A Little Assistance Walk in hospital room: 3 - A Little Assistance Climbing 3-5 steps with a railin - Total Assistance CURRENT [facility] Mobility Raw Score: 17 CURRENT [facility] Mobility Functional Limitation: 50.57% Impaired in Basic Mobility Assessment & Plan: Pt is progressing in accordance with PT plan of care. Pt has completed the following: gait training, transfer training , balance training, and safety training addressing the goals set within their plan of care. Pt continues to demonstrate impairments in Strength, Functional mobility, Coordination, C ardiovascular endurance, Balance, Functional transfers, Safety awareness , and Ambulation requiringcontinued skilled acute care PT. Pt continues to be below their baseline. Pt requires continued therapy to improve independence and facilitate safe discharge from the hospital and reduce readmission rates. Patient Instruction/Education this session: Learners: Patient Education provided: Activity outside of therapy, Balance training, Bed mobility, Equipment needs, sizing, safety, Fall precautions, Functional transfers, Gait belt use, Gait training safety, Plan of care, Role of this discipline, Safety Teaching method: Audiovisual, Demonstration Learner response: Partially complete Plan for next session: Continue to progress mobility and safe ambulation Acute PT Goals Plan of Care by Macey Gleason PT at 11/24/2023 12:53 PM Version 1 of 1 Problem: PT - General Goals Goal: Supine <-> Sit Transfers - Patient will perform supine to/from sit transfers with standby assistance and without use of hospital bed features in order to improve functional mobility and safety. Outcome: Progressing Goal: Sit <-> Stand Transfers - Patient will perform sit to/from stand transfers with standbyassistance and wheeled walker in order to improve functional mobility and safety. Outcome: Progressing Goal: Ambulation - Patient will ambulate 150 feet with standby assistance and wheeled walker to improve ability to safely navigate home and community. Outcome: Progressing Problem: PT - Outcome Measure Goals Goal: [facility] - Patient will demonstrate an improvement in [facility] Inpatient Mobility Short Form of atleast 4.5 points (MDC), in order to demonstrate an improvement in functional mobility. Outcome: Progressing PT treatment consisted of the following to progress towards the above goal(s): PT Evaluation and Treatment Time Therapeutic Activity Time Entry: 25 Gait Training Time Entry: 13 Treating Therapist: Johny Boss Additional Details: PT Co-Eval/Treatment Information Co-evaluation/co-treatment performed?: Yes, simultaneous billable skilled care was necessary due tomedical complexity and functional deficits Other discipline: OT Rationale for need to co-eval/treat: postural control Co-treatment goal focus: balance, mobility, transfer, endurance, coordination, strength Assisted by during session: OT Non-billable assistance during session: none PPE used during patient interaction: facemask, gloves Patient location at end of session: RN aware, bed with head of bed elevated Alarms on at end of session: none, RN aware Needs in reach. Time In: 942 Time Out: 1021 Total Visit Time: 38 minutes Total Treatment Time (skilled, billable minutes): 38 minutes Upon discontinuation of Acute Care Physical Therapy Services or patient discharge from the hospitalthis note represents the current Physical Therapy Discharge Summary. Associated attestation - Macey Gleason PT - 11/24/2023 1:03 PM EDT I, Macey Gleason, PT, provided direct guidance in the room during this patient care session. I attest that all documentation reflects accurate skilled clinical decisions and judgements. * Isamar Guzman APRN-ARTI - 11/24/2023 9:30 AM EDT [facility] Inpatient Diabetes Consults - Progress Note- TEAM 2 Impression: Uncontrolled Type 2 Diabetes Mellitus (T2DM) Admitted with Right carotid stenosis Punctuate R frontal and R occipital stroke s/p TCAR on 11/16/2023 Hx HTN, mood disorder, iron deficiency, right-sided carotid endarterectomy (2008), CAD/CABG (2007, Stent placed in 2014, Bypass in 2007), strokes (2008, 2011) DM microvascular complications: retinopathy and peripheral neuropathy A1c on admission: 7.8% Risk: .None Plan 1. Hospital Plan: Insulin timing issues. Denies eating overnight. Add 0300 glucose check. More aggressive carb ratio Basal: Glargine 20 units Q12H Prandial: Insulin lispro: 1 unit for every 8->6 grams of carbs ACHS and PRN Correction: Insulin Lispro: 1 unit(s) per every 25 mg/dL above 150 mg/dL ACHS, 1 unit per 50 mg/dl above 200 mg/dl at 0300 2. Discharge Plan: Please contact our team on day of discharge for definitive recs. QGENDA :TEAM 2 Tentative discharge plan: (Please use the Diabetes Discharge Order Set: Diabetes Orders - for those patients discharged on INSULIN) - If orals or non-insulin injectables recommended, will need to order them outside of the Diabetes Orderset. - Discharge Diet: DIET CARB CONTROLLED- 60 Grams per Meal - Patient Education: Your target blood sugar is 80-130 mg/dl fasting and under 180 mg/dl nonfasting. - Basal/Mealtime - Basal: U100 Glargine PENS with needles, dose TBD. (Or insurance covered equivalent.) Titration: TBD - Mealtime time insulin: FixedvsFlexible: Fixed: U100 Lispro Pens with Pen [place] MAX DAILY DOSE TBD TBD Units for Large Meal or TBD Units for Small Meal PLUS Correction Scale Subcutaneous every meal and at bedtime Correction Scale: (Copy and paste into Note to Pharmacy) 151-200 = 2 units 201-250 = 4 units 251-300 = 6 units 301-350 = 8 units 351-400 = 10 units -Diabetes Supplies: - Glucose monitoring supplies for ACHS: Glucose test strips: dispense 150 with 1 refill - Patient prefers any brand or substitute brand covered by insurance, Lancets: dispense 150 with 1 refill, and alcohol swabs: dispense 200 with 1 refill - The patient will need script for new glucometer: no: Patient prefers any brand or substitute brand covered by insurance -Continuous Glucose Monitoring Devices: - NA -Other Diabetes Supplies: - Glucagon (Baqsimi Two Pack) 3 MG/DOSE Powder 3. Follow up needed: PCP within 1- 2 weeks 1-2 weeks in [facility] at [facility] (12th floor). To schedule this appt call the [facility] at [phone] Option #3. 4. Education: Discussed daily plan today 5. Will review glucoses and discuss with Dr Harris as needed Thank you for allowing us to participate in your patient's care. For provider collection correspondent: CARONA : TEAM 2 CC: hyperglycemia History of Present Illness: Yony Vega is a 68 y.o. year old male who is seen at the bedside. He is eating well, 30-52 g CHO. Creatinine normal. Insulin timing issues. Current Diet Orders Procedures DIET CARB CONTROLLED Standing Status: Standing Number of Occurrences: 1 Current Regimen: Basal: Glargine 20 units Q12H Prandial: Insulin lispro: 1 unit for every 8 grams of carbs ACHS and PRN Correction: Insulin Lispro: 1 unit(s) per every 25 mg/dL above 150 mg/dL ACHS Daily Glucose Review: Date Daily glucose review TDD Basal Prandial/ Correction 11/19/2023 304, 363, 250, 273, 250, 32 12 20 11/20/2023 214, 186, 211, 220, 200, 213 38 26 12 11/21/23 204, 247, 254, 197, 226 38 20 18 11/22/23 168, 234, 174, 152, 170, 61 31 30 11/23/23 164, 195, 239, 260, 164, 146, 239, 173 64 35 29 11/24/23 257/ 212, 292(PP) Review of Systems - No symptoms of hypoglycemia Physical Exam Constitutional: Well-developed, well-nourished, overweight male in no acute distress. Pulmonary/Chest: Respirations even and unlabored on BiPAP Musculoskeletal: No acute abnormalities noted Neurological: Alert and interactive; KEWEENAW Psych: Cooperative Temp: [95.5 F (35.3 C)-98.5 F (36.9 C)] 98.2 F (36.8 C) Pulse (Heart Rate): [59-78] 62 Resp Rate: [9-24] 12 BP: (121-168)/(57-72) 154/66 O2 Sat (%): [91 %-98 %] 98 % Weight: [62.3 kg (137 lb 4.8 oz)] 62.3 kg (137 lb 4.8 oz)Admission/Adult (Dosing) Weight: 65.3 kg (144 lb) Most recent entered Weight: 62.3 kg (137 lb 4.8 oz) Body mass index is 22.16 kg/m . Background History Yony Vega is a 68 y.o. year old male with Type 2 Diabetes Mellitus (T2DM) diagnosed in 2018 who is seen in consultation at the request of Boom Ford MD for assistance with evaluation of hyperglycemia and to make treatment recommendations. He was interviewed at his bedside in [place]. Per review of his chart and discussion with patient he has a significant history of type 2 diabetes, CAD s/p CABG in 2007 ([facility]) and stent in 2014, previous CVA c/g L-sided numbness 2/2 RCIA internal carotid artery s/p CEA ~2011, colorectal cancer s/p APR w/ LPLND (2019), and reported PAD s/p R pop,R anterior tibial angioplasties (2014) and L anterior tibial, L peroneal, and L popliteal angioplasties (2015) who presents to [facility] with L facial numbness, word slurring, and balance issues. Stroke code was called, and patient underwent carotid ultrasound showing 70-99% stenosis R JUSTUS. He was admitted with Right carotid stenosis, Punctuate R frontal and R occipital stroke and is s/p TCAR on 11/16/19 24 In regard to his history of diabetes he is taking basal bolus insulin with dosing as below. He injects in his abdomen. He notes hard spots at his injection sites at times (they last for less than 24 hours). He uses a glucose meter to monitor his blood sugar. Diabetes History: Type of Diabetes: Type 2 Diabetes Mellitus (T2DM) Diagnosis (aprox date): 2018 Outpatient Clinic: PCP Home regimen: Basal: Glargine 50 units twice daily Prandial: Lispro per a corrective scale Diabetes Complications: retinopathy and peripheral neuropathy Date of most recent dilated eye exam: was due for an appointment this admission Tobacco/Nicotine: He reports that he has never smoked. He has never used smokeless tobacco. Home blood glucoses: glucose meter: He is checking his blood sugars about 3-4 times per day Reports ranging from the 100s to 200 range typically Recent A1c: Lab Results Component Value Date HGBA1C 7.8 (H) 11/13/2023 Lab Results Component Value Date CHOLESTEROL 150 11/13/2023 TRIG 279 (H) 11/13/2023 HDL 29 (L) 11/13/2023 LDLCALC 65 11/13/2023 Lab Results Component Value Date SODIUM 135 11/24/2023 POTASSIUM 4.3 11/24/2023 CHLORIDE 93 (L) 11/24/2023 CO2 32 (H) 11/24/2023 BUN 24 11/24/2023 CREATSERUM 0.89 11/24/2023 GLUCOSE 292 (H) 11/24/2023 No results found for: CREATURINE, MICROALBUMIN, MICALBCREAT Lab Results Component Value Date ALT 18 11/13/2023 No results found for: PREALBUMIN Cardiac echo: EF = Results for orders placed during the hospital encounter of 11/12/23 ECHOCARDIOGRAM LIMITED/FOLLOWUP 11/18/2023 (Final) Interpretation Summary Limited study. The left ventricular chamber size and systolic function are normal. LVEF 55-60%. Normal LV wall motion. Grade II diastolic dysfunction. The right ventricular chamber size and systolic function are normal. Estimated RVSP 44 mmHg. * SHAUN Potter - 11/24/2023 8:25 AM EDT Placement Plan Expected Discharge Date: Referred Level of Care: retirement facility Barriers: patient choice, insurance precert Current Referrals and Status 1. [facility]: accepted [facility]. [facility]: accepted SW provided retirement facility choices at the bedside. Patient stated that his spouse would be arriving later and would be the one picking which retirement facility he will discharge to. SW will return later for choice. Addendum @ 3:18PM: HEMANT attempted to get patient choice from patient and spouse however patient was receiving care from medical team. SHAUN Patel Roll Machine Operator * EUSEBIO Hay - 11/23/2023 9:57 AM EDT [facility] Inpatient Diabetes Consults - Progress Note- TEAM 2 Impression: Uncontrolled Type 2 Diabetes Mellitus (T2DM) Admitted with Right carotid stenosis Punctuate R frontal and R occipital stroke s/p TCAR on 11/16/2023 Hx HTN, mood disorder, iron deficiency, right-sided carotid endarterectomy (2008), CAD/CABG (2007, Stent placed in 2014, Bypass in 2007), strokes (2008, 2011) DM microvascular complications: retinopathy and peripheral neuropathy A1c on admission: 7.8% Risk: .None Plan 1. Hospital Plan: Based on glucose trends over the past 24 hours, recommend the following: Basal: Glargine 15 -> 20 units Q12 Prandial: Insulin lispro: 1 unit for every 8 grams of carbs ACHS and PRN Correction: Insulin Lispro: 3 -> 1 unit(s) per every 50 -> 25 mg/dL above 150 mg/dL ACHS 2. Discharge Plan: Please contact our team on day of discharge for definitive recs. QGENDA :TEAM 2 Tentative discharge plan: (Please use the Diabetes Discharge Order Set: Diabetes Orders - for those patients discharged on INSULIN) - If orals or non-insulin injectables recommended, will need to order them outside of the Diabetes Orderset. - Discharge Diet: DIET CARB CONTROLLED- 60 Grams per Meal - Patient Education: Your target blood sugar is 80-130 mg/dl fasting and under 180 mg/dl nonfasting. - Basal/Mealtime - Basal: U100 Glargine PENS with needles, dose TBD. (Or insurance covered equivalent.) Titration: TBD - Mealtime time insulin: FixedvsFlexible: Fixed: U100 Lispro Pens with Pen [place] MAX DAILY DOSE TBD TBD Units for Large Meal or TBD Units for Small Meal PLUS Correction Scale Subcutaneous every meal and at bedtime Correction Scale: (Copy and paste into Note to Pharmacy) 151-200 = 2 units 201-250 = 4 units 251-300 = 6 units 301-350 = 8 units 351-400 = 10 units -Diabetes Supplies: - Glucose monitoring supplies for ACHS: Glucose test strips: dispense 150 with 1 refill - Patient prefers any brand or substitute brand covered by insurance, Lancets: dispense 150 with 1 refill, and alcohol swabs: dispense 200 with 1 refill - The patient will need script for new glucometer: no: Patient prefers any brand or substitute brand covered by insurance -Continuous Glucose Monitoring Devices: - NA -Other Diabetes Supplies: - Glucagon (Baqsimi Two Pack) 3 MG/DOSE Powder 3. Follow up needed: PCP within 1- 2 weeks 1-2 weeks in [facility] at [facility] (12th floor). To schedule this appt call the [facility] at [phone] Option #3. 4. Education: NA today 5. Will review glucoses and discuss with Dr Harris as needed Thank you for allowing us to participate in your patient's care. For provider collection correspondent: MAXIMINO : TEAM 2 CC: hyperglycemia History of Present Illness: Yony Vega is a 68 y.o. year old male who is seen at the bedside. He is eating well. Creatinine normal. Current Diet Orders Procedures DIET CARB CONTROLLED Standing Status: Standing Number of Occurrences: 1 Current Regimen: Basal: Insulin Glargine 15 units Q12 Prandial: Insulin lispro: 1 unit for every 8 grams of carbs ACHS and PRN Correction: Insulin Lispro: 3 unit(s) per every 50 mg/dL above 150 mg/dl ACHS Daily Glucose Review: Date Daily glucose review TDD Basal Prandial/ Correction 11/19/2023 304, 363, 250, 273, 250, 32 12 20 11/20/2023 214, 186, 211, 220, 200, 213 38 26 12 11/21/23 204, 247, 254, 197, 226 38 20 18 11/22/23 168, 234, 174, 152, 170, 61 31 30 11/23/23 164, 195 Review of Systems - No symptoms of hypoglycemia Physical Exam Constitutional: Well-developed, well-nourished, overweight male in no acute distress. Pulmonary/Chest: Respirations even and unlabored on BiPAP Musculoskeletal: No acute abnormalities noted Neurological: Alert and interactive; KEWEENAW Psych: Cooperative Temp: [97.6 F (36.4 C)-98.4 F (36.9 C)] 98.3 F (36.8 C) Pulse (Heart Rate): [55-71] 65 Resp Rate: [8-24] 8 BP: (113-146)/(56-65) 146/65 O2 Sat (%): [90 %-100 %] 98 % Weight: [65 kg (143 lb 4.8 oz)] 65 kg (143 lb 4.8 oz)Admission/Adult (Dosing) Weight: 65.3 kg (144 lb) Most recent entered Weight: 65 kg (143 lb 4.8 oz) Body mass index is 23.13 kg/m . Background History Yony Vega is a 68 y.o. year old male with Type 2 Diabetes Mellitus (T2DM) diagnosed in 2018 who is seen in consultation at the request of Boom Ford MD for assistance with evaluation of hyperglycemia and to make treatment recommendations. He was interviewed at his bedside in [place]. Per review of his chart and discussion with patient he has a significant history of type 2 diabetes, CAD s/p CABG in 2007 (OSH) and stent in 2014, previous CVA c/g L-sided numbness 2/2 RCIA internal carotid artery s/p CEA ~2011, colorectal cancer s/p APR w/ LPLND (2019), and reported PAD s/p R pop,R anterior tibial angioplasties (2014) and L anterior tibial, L peroneal, and L popliteal angioplasties (2015) who presents to [facility] with L facial numbness, word slurring, and balance issues. Stroke code was called, and patient underwent carotid ultrasound showing 70-99% stenosis R JUSTUS. He was admitted with Right carotid stenosis, Punctuate R frontal and R occipital stroke and is s/p TCAR on 11/16/19 24 In regard to his history of diabetes he is taking basal bolus insulin with dosing as below. He injects in his abdomen. He notes hard spots at his injection sites at times (they last for less than 24 hours). He uses a glucose meter to monitor his blood sugar. Diabetes History: Type of Diabetes: Type 2 Diabetes Mellitus (T2DM) Diagnosis (aprox date): 2018 Outpatient Clinic: PCP Home regimen: Basal: Glargine 50 units twice daily Prandial: Lispro per a corrective scale Diabetes Complications: retinopathy and peripheral neuropathy Date of most recent dilated eye exam: was due for an appointment this admission Tobacco/Nicotine: He reports that he has never smoked. He has never used smokeless tobacco. Home blood glucoses: glucose meter: He is checking his blood sugars about 3-4 times per day Reports ranging from the 100s to 200 range typically Recent A1c: Lab Results Component Value Date HGBA1C 7.8 (H) 11/13/2023 Lab Results Component Value Date CHOLESTEROL 150 11/13/2023 TRIG 279 (H) 11/13/2023 HDL 29 (L) 11/13/2023 LDLCALC 65 11/13/2023 Lab Results Component Value Date SODIUM 137 11/23/2023 POTASSIUM 3.4 (L) 11/23/2023 CHLORIDE 90 (L) 11/23/2023 CO2 37 (H) 11/23/2023 BUN 24 11/23/2023 CREATSERUM 1.05 11/23/2023 GLUCOSE 260 (H) 11/23/2023 No results found for: CREATURINE, MICROALBUMIN, MICALBCREAT Lab Results Component Value Date ALT 18 11/13/2023 No results found for: PREALBUMIN Cardiac echo: EF = Results for orders placed during the hospital encounter of 11/12/23 ECHOCARDIOGRAM LIMITED/FOLLOWUP 11/18/2023 (Final) Interpretation Summary Limited study. The left ventricular chamber size and systolic function are normal. LVEF 55-60%. Normal LV wall motion. Grade II diastolic dysfunction. The right ventricular chamber size and systolic function are normal. Estimated RVSP 44 mmHg. * SHAUN Potter - 11/23/2023 9:00 AM EDT SW sent retirement facility referrals for this patient near his zip code. Per PVS ADRIÁN patient is agreeable to discharging to a retirement facility. Phyllis KHAN, SHAUN Roll Machine Operator * Kristan Ernst MD - 11/23/2023 8:53 AM EDT VASCULAR SURGERY PROGRESS NOTE HPI: Yony Vega is a 68 y.o. male who presented with symptomatic right carotid stenosis. Sp right TCAR given previous R CEA on 11/15 cb NSTEMI sp LHC on 11/19. Subjective: Neurologically back to baseline. Some agitation this AM but remains oriented. He was placed on nasal canula later during the day but BiPAP overnight. CXR from yesterday demonstrating pulmonary edema but overall oxygenation improving with lasix diuresis. Objective: Vital Signs: Temp: [97.6 F (36.4 C)-98.4 F (36.9 C)] 98.3 F (36.8 C) Pulse (Heart Rate): [55-71] 60 Resp Rate: [8-24] 8 BP: (113-146)/(56-65) 146/65 O2 Sat (%): [90 %-100 %] 100 % Weight: [65 kg (143 lb 4.8 oz)] 65 kg (143 lb 4.8 oz) Fluid Management: I/O last 3 completed shifts: In: 223.7 [P.O.:200; IV Piggyback:23.7] Out: 1600 [Urine:1550] Wt Readings from Last 3 Encounters: 11/23/23 65 kg (143 lb 4.8 oz) 08/29/23 67.4 kg (148 lb 11.2 oz) 07/19/23 67.1 kg (148 lb) Physical Exam: Gen: NAD, resting comfortably Neuro: CN II-XII grossly intact, no focal signs. Baseline LUE weakness Cardiac: RRR Lungs: BiPAP Abd: soft, NT, ND Incision: right neck incision soft with improved hematoma. Surrounding skin ecchymotic and macerated. Left groin soft without hematoma Extremities: pink, warm, no new ulcers/wounds, no edema, 5+ motor, sensation intact in BLE Pulses: signal in RT DP/PT Labs: WBC/Hgb/Hct/Plts: 5.24/9.3/28.3/229 (11/22 0023) Na/K+/Phos/Mg/Ca: 137/3.4/--/1.8/-- (11/22 0023) Bun/Creat/Cl/CO2/Glucose: 24/1.05/90/37/260 (11/22 0023-11/22 0808) Imaging: no new imaging this morning - Venous duplex 11/19 no DVTs in [facility] Assessment & Plan: Yony Vega is a 68 y.o. male who presented with symptomatic right carotid stenosis. Found to have Punctuate R frontal and R occipital stroke . Now on 3 Days Post-Op s/p Procedure(s) (LRB): CORONARY ANGIOGRAM WITH LEFT HEART CATH (N/A) CORONARY BYPASS GRAFT ANGIOGRAM (N/A) ULTRASOUND GUIDED ACCESS (N/A) on 11/16/[address] Ford. Speech ok with regular diet Recommend continued diuresis w lasix today Discontinue heparin gtt (okay per Cardiology) and continue DAPT Neurovasc- believes event yesterday related to recrudescence of known stroke symptoms in the setting of increased oxygen requirements. Neurosurgery consult cancelled. No further workup recommended. Continue ICU level care given ongoing respiratory requirements Follow-up echocardiogram pending Diet: NPO until speech eval Activity: Advance as tolerated DVT ppx: SCDs Bowel Regimen: Miralax and senna daily, PRN suppository Complexity. Hypokalemia - Continue to monitor and replete. Hypocalcemia - Continue to monitor and replete. Any conditions listed below are present on admission unless otherwise specified. . Right carotid stenosis Punctuate R frontal and R occipital stroke - S/p right TCAR - Continue 81 mg ASA and 75 mg Plavix daily Will also need anticoagulation for new afib. Eliquis check--> $0 - Patient will discharged on triple therapy for 1 month. Will stop PLAVIX after 30 days. Then Eliquis and ASA ongoing. --> currently holding heparin gtt, continuing DAPT - Continue crestor - Goal SBP 100-140 mmHg, PRNs available - Continue frequent neuro and vascular checks - PT/OT--> previously recommended SNF. Will re-evaluate post-op - Neurovasc signed off 11/16--> Cont Statin and aspirin. Follow-up with neurovasc in 1-2 weeks (ordered) Acute pain -Pain control: Scheduled tylenol PRN: oxycodone Acute blood loss anemia - Daily CBC, transfuse if less than 7 or symptomatic HLD (POA) - Continue 40mg crestor Lab Results Component Value Date CHOLESTEROL 150 11/13/2023 TRIG 279 (H) 11/13/2023 HDL 29 (L) 11/13/2023 LDLCALC 65 11/13/2023 HTN (POA) - SBP 100-140 - continues to require occasional PRNs - Cont home coreg and norvasc Mood disorder, POA - Continue home duloxetine 60 mg DM, POA - Takes insulin lispro at home - Continue SSI here - Carb controlled diet GERD, POA - Takes omeprazole at home - Continue Protonix here CAD/CABG (2007, Stent placed in 2014, Bypass in 2007) - ASA and statin as above - [facility] 11/19 without intervention Paroxymal Atrial Fibrillation - Coreg as above - [id number] at 6 - On therapeutic anticoagulation at home, will need to revisit on discharge - Cardiology follow-up in 4-6 weeks. 30 day tele monitor at discharge The patient continues to require the followings lines, tubes and drains: PIVs These are required for the following reasons: Continuation of inpatient Care PLAN - Cont DAPT - Carb controlled diet - May check DOAC. Eliquis $0/month - PT/OT for dispo planning Dispo: Continue ICU care. Dispo pending . Therapy recommending SNF. Kristan Ernst MD 11/23/2023 Vascular Surgery, PGY-3 [phone] * Paris Gonzalez MD - 11/22/2023 4:01 PM EDT Seen and examined on am rounds. Code stroke called yesterday. He exhibited focal deficits on the left side. CTA showed patent stent but persistent distal disease. He has recovered completely from a neurological standpoint. Diuresing. Hematoma is stable from Monday. Passed swallow study. Continue to hold eliquis. Will kindly ask for NRS to evaluate whether he needs additional angiogram in light of TIA. * JUAN RAMON Do - 11/22/2023 1:20 PM EDT Introduced self and role of the air route controller to patient/family. Provided emotional and spiritual support Patient/family encouraged to request a air route controller as needed. Chaplains are available 24 hours a day and 7 days a week. For urgent matters in [facility], please page [phone]. If the request is not urgent, please enter a consult. Consults are responded to within 24 hours. Rev. Valdo Henning MA [employer]ism, [facility] Career Services Coordinator [facility] Department of Alarm Installation Technician and Clinical Pastoral Education [address], [address] [place], [address] ([place]) pager [phone] [email or web address] 11/22/23 1320 Clinical Encounter Type Visited With Health Care Provider;Family not available;Patient Visit Type Ongoing Support Crisis Visit Spiritual/Emotional Distress Pastoral Time Spent 15 min Referral Verbal Hoahaoism Encounters Hoahaoism Needs Prayer Spiritual Assessment Spiritual Observation Spirituality helpful Emotional Observation Anxiety;Overwhelmed Hope Observation Specific hope focus Support Observation Strong support;By Family Interventions Provided Prayer;Active listening;Supportive presence Facilitated Sharing of life story;Verbalization of feelings Alarm Installation Technician Education Alarm Installation Technician Service Available Yes Educated Patient Outcomes Patient Outcomes Reduced distress Plan of Care Continue Visiting PRN * Tiffani Lemon APRN-CLOUD DEVELOPER - 11/22/2023 1:09 PM EDT [facility] Inpatient Diabetes Consults - Progress Note- TEAM 2 Impression: Uncontrolled Type 2 Diabetes Mellitus (T2DM) Admitted with Right carotid stenosis Punctuate R frontal and R occipital stroke s/p TCAR on 11/16/2023 Hx HTN, mood disorder, iron deficiency, right-sided carotid endarterectomy (2008), CAD/CABG (2007, Stent placed in 2014, Bypass in 2007), strokes (2008, 2011) DM microvascular complications: retinopathy and peripheral neuropathy A1c on admission: 7.8% Risk: .None Plan 1. Hospital Plan: Glucose shows some improvement along with mental status Basal: Glargine 15 units QAM and glargine 20 units at bedtime ->15 units Q12 Prandial: Insulin lispro: 1 unit for every 8 grams of carbs ACHS and PRN Correction: Insulin Lispro: 3 unit(s) per every 50 mg/dL above 150 mg/dL ACHS 2. Discharge Plan: Please contact our team on day of discharge for definitive recs. QGENDA :TEAM 2 Tentative discharge plan: (Please use the Diabetes Discharge Order Set: Diabetes Orders - for those patients discharged on INSULIN) - If orals or non-insulin injectables recommended, will need to order them outside of the Diabetes Orderset. - Discharge Diet: DIET CARB CONTROLLED- 60 Grams per Meal - Patient Education: Your target blood sugar is 80-130 mg/dl fasting and under 180 mg/dl nonfasting. - Basal/Mealtime - Basal: U100 Glargine PENS with needles, dose TBD. (Or insurance covered equivalent.) Titration: TBD - Mealtime time insulin: FixedvsFlexible: Fixed: U100 Lispro Pens with Pen [place] MAX DAILY DOSE TBD TBD Units for Large Meal or TBD Units for Small Meal PLUS Correction Scale Subcutaneous every meal and at bedtime Correction Scale: (Copy and paste into Note to Pharmacy) 151-200 = 2 units 201-250 = 4 units 251-300 = 6 units 301-350 = 8 units 351-400 = 10 units -Diabetes Supplies: - Glucose monitoring supplies for ACHS: Glucose test strips: dispense 150 with 1 refill - Patient prefers any brand or substitute brand covered by insurance, Lancets: dispense 150 with 1 refill, and alcohol swabs: dispense 200 with 1 refill - The patient will need script for new glucometer: no: Patient prefers any brand or substitute brand covered by insurance -Continuous Glucose Monitoring Devices: - NA -Other Diabetes Supplies: - Glucagon (Baqsimi Two Pack) 3 MG/DOSE Powder 3. Follow up needed: PCP within 1- 2 weeks 1-2 weeks in [facility]charge [facility] at [facility] (12th floor). To schedule this appt call the [facility] at [phone] Option #3. 4. Education: NA today 5. Will review glucoses and discuss with Dr Harris as needed Thank you for allowing us to participate in your patient's care. For provider collection correspondent: CARONA : TEAM 2 CC: hyperglycemia History of Present Illness: Yony Vega is a 68 y.o. year old male who is seen at the bedside sitting up in the chair on HFNC eating lunch. He is alert and oriented, but KEWEENAW. BGs remain elevated Creatinine is normal. Current Diet Orders Procedures DIET CARB CONTROLLED Standing Status: Standing Number of Occurrences: 1 Current Regimen: Basal: Insulin Glargine 20 units QHS Prandial: Insulin lispro: 1 unit for every 8 grams of carbs ACHS and PRN Correction: Insulin Lispro: 3 unit(s) per every 50 mg/dL above 150 mg/dl ACHS Daily Glucose Review: Date Daily glucose review TDD Basal Prandial/ Correction 11/19/2023 304, 363, 250, 273, 250, 32 12 20 11/20/2023 214, 186, 211, 220, 200, 213 38 26 12 11/21/23 204, 247, 254, 197, 226 38 20 18 11/22/23 168, 234, 174 Review of Systems - No symptoms of hypoglycemia Physical Exam Constitutional: Well-developed, well-nourished, overweight male in no acute distress. Pulmonary/Chest: Respirations even and unlabored on BiPAP Musculoskeletal: No acute abnormalities noted Neurological: Alert and interactive; KEWEENAW Psych: Cooperative Temp: [97.1 F (36.2 C)-97.9 F (36.6 C)] 97.9 F (36.6 C) Pulse (Heart Rate): [55-66] 55 Resp Rate: [10-28] 19 BP: (113-142)/(56-64) 113/56 O2 Sat (%): [94 %-100 %] 99 % Weight: [63.8 kg (140 lb 10.5 oz)-65.8 kg (145 lb 1 oz)] 63.8 kg (140 lb 10.5 oz)Admission/Adult (Dosing) Weight: 65.3 kg (144 lb) Most recent entered Weight: 63.8 kg (140 lb 10.5 oz) Body mass index is 22.7 kg/m . Background History Yony Vega is a 68 y.o. year old male with Type 2 Diabetes Mellitus (T2DM) diagnosed in 2018 who is seen in consultation at the request of Boom Ford MD for assistance with evaluation of hyperglycemia and to make treatment recommendations. He was interviewed at his bedside in [place]. Per review of his chart and discussion with patient he has a significant history of type 2 diabetes, CAD s/p CABG in 2007 (OSH) and stent in 2014, previous CVA c/g L-sided numbness 2/2 RCIA internal carotid artery s/p CEA ~2011, colorectal cancer s/p APR w/ LPLND (2019), and reported PAD s/p R pop,R anterior tibial angioplasties (2014) and L anterior tibial, L peroneal, and L popliteal angioplasties (2015) who presents to [facility] with L facial numbness, word slurring, and balance issues. Stroke code was called, and patient underwent carotid ultrasound showing 70-99% stenosis R UJSTUS. He was admitted with Right carotid stenosis, Punctuate R frontal and R occipital stroke and is s/p TCAR on 11/16/19 24 In regard to his history of diabetes he is taking basal bolus insulin with dosing as below. He injects in his abdomen. He notes hard spots at his injection sites at times (they last for less than 24 hours). He uses a glucose meter to monitor his blood sugar. Diabetes History: Type of Diabetes: Type 2 Diabetes Mellitus (T2DM) Diagnosis (aprox date): 2018 Outpatient Clinic: PCP Home regimen: Basal: Glargine 50 units twice daily Prandial: Lispro per a corrective scale Diabetes Complications: retinopathy and peripheral neuropathy Date of most recent dilated eye exam: was due for an appointment this admission Tobacco/Nicotine: He reports that he has never smoked. He has never used smokeless tobacco. Home blood glucoses: glucose meter: He is checking his blood sugars about 3-4 times per day Reports ranging from the 100s to 200 range typically Recent A1c: Lab Results Component Value Date HGBA1C 7.8 (H) 11/13/2023 Lab Results Component Value Date CHOLESTEROL 150 11/13/2023 TRIG 279 (H) 11/13/2023 HDL 29 (L) 11/13/2023 LDLCALC 65 11/13/2023 Lab Results Component Value Date SODIUM 136 11/22/2023 POTASSIUM 3.8 11/22/2023 CHLORIDE 92 (L) 11/22/2023 CO2 35 (H) 11/22/2023 BUN 28 (H) 11/22/2023 CREATSERUM 0.90 11/22/2023 GLUCOSE 174 (H) 11/22/2023 No results found for: CREATURINE, MICROALBUMIN, MICALBCREAT Lab Results Component Value Date ALT 18 11/13/2023 No results found for: PREALBUMIN Cardiac echo: EF = Results for orders placed during the hospital encounter of 11/12/23 ECHOCARDIOGRAM LIMITED/FOLLOWUP 11/18/2023 (Final) Interpretation Summary Limited study. The left ventricular chamber size and systolic function are normal. LVEF 55-60%. Normal LV wall motion. Grade II diastolic dysfunction. The right ventricular chamber size and systolic function are normal. Estimated RVSP 44 mmHg. * JUANCARLOS Brady - 11/22/2023 10:15 AM EDT Acute Care Speech-Language Pathology Clinical Swallow Evaluation Diet recommendation: Recommended Method of Nutrition: PO Recommended Diet Grade: regular Recommended Liquid Consistency: liquid- thin (IDDSI 0) Recommended Medication Administration (as appropriate per MD): Per patient preference Type of Cues/Supervision: none Assistance: independent Discharge Recommendations: Based on the below outcome measures/assessment score(s) and ENTRY LEVEL MARKETING ASSISTANT clinicaljudgment, discharge destination recommendation is: Skilled ENTRY LEVEL MARKETING ASSISTANT services not warranted at discharge Acute ENTRY LEVEL MARKETING ASSISTANT Outcomes Tracking Communicate basic wants and needs?: yes Demo insight/appreciation of deficits?: yes Complete basic problem solving?: yes Current therapy frequency recommendation in acute care: Speech/Lang/Cog Therapy Frequency: no therapy warranted Swallow Therapy Frequency: no therapy warranted Date of Admission: 11/12/2023 Date of Evaluation: 11/22/2023 Attending Physician: Boom Ford MD General Patient Information Name: Yony Vega Gender: male Date of : 1955 Primary Diagnosis: ICD-10-CM 1. Acute ischemic stroke I63.9 2. More than 50 percent stenosis of right internal carotid artery I65.21 3. Cerebrovascular accident (CVA), unspecified mechanism I63.9 4. ELIZALDE (dyspnea on exertion) R06.09 5. Chest discomfort R07.89 6. Paroxysmal atrial fibrillation I48.0 7. Bilateral carotid artery stenosis I65.23 8. Abnormal EKG R94.31 9. NSTEMI (non-ST elevated myocardial infarction) I21.4 Past Medical History: Diagnosis Date Anxiety Arteriosclerosis of carotid artery CAD (coronary artery disease) Colostomy in place CVA (cerebral vascular accident) 2011 Diabetes mellitus GERD (gastroesophageal reflux disease) HLD (hyperlipidemia) HTN (hypertension) NSTEMI (non-ST elevated myocardial infarction) ALEJANDRO (obstructive sleep apnea) Osteoporosis Parastomal hernia Rectal cancer Past Surgical History: Procedure Laterality Date PLACEMENT INTRAVASCULAR STENT CERVICAL CAROTID ARTERY OPEN Right 11/16/2023 Laterality: Right; Surgeon: Boom Ford MD; Location: [facility] EYE SURGERY 2021 CORONARY STENT PLACEMENT 2014 HEART CATHETERIZATION 2014 CORONARY ARTERY BYPASS GRAFT 2009 ENDARTERECTOMY CAROTID SUBCLAVIAN VERTEBRAL 2009 HERNIA REPAIR Left 2005 inguinal OTHER SURGICAL 2005 graft- burn right hand HERNIA REPAIR 1997 umbilical OTHER SURGICAL 1992 fx right arm TONSILLECTOMY 1985 COLONOSCOPY DIAGNOSTIC LARGE BOWEL SURGERY Pain: General Pain Documentation (Adult, OB, Peds) Presence of Pain: denies pain/discomfort Presence of Pain Score (Auto-calculated): 0 Comfort/Acceptable General Pain Level/Goal: 2 DVPRS (Defense and Veterans Pain Rating Scale) DVPRS: Rest: 0- no pain DVPRS: Activity: 0- no pain General Pain Descriptors Factors That Aggravate Pain: (palpation of neck incision/surrounding) Precautions: Patient Safety Communication Prior to Visit: Nursing Lines/Tubes/Drains (Rehab Status): (Peripheral IV X 2, Colostomy, External Catheter) ENTRY LEVEL MARKETING ASSISTANT Existing Precautions/Restrictions: (Aspiration, fall) Patient History Comments: Per chart: Yony Vega is a 68 y.o. male who presented with symptomatic right carotid stenosis. Sp right TCAR given previous R CEA on 11/15 cb NSTEMI sp LHC on 11/19. Subjective: Eventful morning yesterday [11/21/2023]. Developed left arm weakness and difficulty naming objects. Code stroke called. Imaging negative for acute stroke. TCAR stent patent. This AM, patient is fully recovered. Neuro at baseline. Remains on [facility]. CXR with pulmonary edema. Relevant Imaging: EXAM: CT STROKE HEAD-STROKE ALERT ONLY, 11/21/2023 11:00 AM COMPARISON: MRI brain November 12, 2023. CLINICAL INDICATIONS: 68 years Male ERT for concern for stroke, worsening left sided deficits; TECHNIQUE: A series of transaxial computerized tomographic images are obtained from base of skull to vertex without intravenous contrast. Axial whole-head and thin section posterior fossa slices are provided. Reformats: Sagittal and coronal. FINDINGS: Snowden-white matter differentiation is preserved. No acute large territory infarction is seen. Patchy periventricular white matter hypoattenuation is noted which is non-specific, but likely due to chronic small vessel ischemic changes. 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 Chronic lacunar infarcts in the bilateral basal ganglia and left thalamus. No acute intracranial hemorrhage is seen. No significant mass effect or midline shift. Ventricles are normal in size and configuration for patient age. Skull appears intact. Evidence of prior bilateral cataract surgery. Visualized paranasal sinuses are clear. Visualized mastoid air cells are clear. IMPRESSION IMPRESSION: No acute hemorrhage, or CT signs of acute large territory infarction. Chronic microvascular ischemic changes. Sequela of old infarcts in the bilateral basal ganglia, left thalamus, right cerebellar hemisphere and vermis. Findings were discussed with SHIVAM Lopez at 11/21/2023 11:06 AM. I personally viewed and interpreted these images and I have reviewed and approved this report. Prior ENTRY LEVEL MARKETING ASSISTANT history: Seen for Speech-Language Evaluation on 11/13/2023, passed [place] Swallow screen- Yony Eduardo Russoer presents with functional cognitive- communication s/p acute to subacute R frontal & R occipital infarcts. Of note, pt with various chronic infarcts. Pt reports he is at his baseline with cognitive-communication and swallowing. He reports he has had swallowing tests in the past and they showed areas of soreness in his throat d/t reflux. Pt denies concerns with swallowing at this time and that he is on reflux medication. Pt reports he does do most IADLs at baseline but does not drive, work, or cook. Pt voices interest in returning to work or volunteering for quality of life. ENTRY LEVEL MARKETING ASSISTANT to sign off at this time. Re consult as needed. Current Method of Nutrition: Route of Nutrition: No alternative means Respiratory Status: O2 Device: heated high-flow nasal cannula O2 Sat (%): 98 % Resp Rate: 15 Subjective information: Patient seen in room for initial swallow evaluation. Patient resting in recliner chair, alert, pleasant. No subjective complaints. Exam limited by cognition: No Objective Evaluation: Oral Motor: Cranial Nerve Exam CN V (Trigeminal) normal blink CN VII (Facial) strong bilateral movement of upper and lower face CN IX (Glossopharyngeal) uvula is midline CN X (Vagus) uvula is midline CN XI (Accessory) raises head off pillow without difficulty, strong and equal shoulder shrug CN XII (Hypoglossal) tongue midline with strong equal strength Vocal Quality: WDL GRBAS: A perceptual rating scale for voice parameters Rating scale of 0 to 3 0 = no impairment 1 = minimal to mild impairment 2 = moderate impairment 3 = severe impairment Subjective Voice Evaluation Grade of dysphonia (G): 0 Roughness (R): 0 Breathiness (B): 0 Asthenia (A): 0 Strain (S): 0 Positioning: Other (Comments) (Upright in recliner chair) Anticipatory Phase: Intact Foods and Liquids Trialed: Modality: Amount: Ice Teaspoon X 3 Thin Cup X 3 Dysphagia- pureed (IDDSI 4) Teaspoon X 2 Regular solid Self-fed X 2 Oral Phase Function Comments Oral Mucosa Intact Dentition Natural teeth Labial Closure Intact Mastication Intact Oral Stasis Absent Cough before the swallow Absent Oral Phase Summary: Oral stage appears WDL Pharyngeal Phase Function Comments Perceived Swallow Present Cough Response No Throat Clear No Subjective Complaint of Residue Absent Pharyngeal Phase Summary: Pharyngeal stage appears WDL Strategies Trialed: Strategy: Effectiveness: NA [place] Swallow Screen: (administered by: RN) [place] Swallow Screening Screening Exclusion Criteria: none, continue with [place] Swallow Screening Cognitive Screen: Orientation: able to give name, able to name place, able to name current year Cognitive Screen: Command Following: able to open mouth, able to stick out tongue, able to smile Oral Motor Function : able to close lips, able to move tongue to corners of lips, able to stick outtongue past lips, able to pucker lips and smile 3 oz. Water Swallow Challenge : no deficit-passed [place] Swallow Screening Result: passed=cleared for oral intake Voice and Swallow Outcomes: Functional Oral Intake Scale: Level 7 - Total oral intake with no restrictions Clinical Impression: Yony Vega presents with functional oral and pharyngeal phases of the swallow in the setting of admission for TCAR placement, concern for new CVA 11/21/2023, head CT negative. Oral stage appearsWDL. There were no outward signs/symptoms of laryngeal penetration or aspiration. No globus complaints. Recommend Regular diet with thin liquids. Medications per patient preference. No further Speechservices warranted at this time. ENTRY LEVEL MARKETING ASSISTANT to sign off. Please re- consult should additional needs arise. Plan for next session: NA Patient Education/Instruction Learners: Patient Education provided: Dysphagia recommendations/impressions Teaching method: Verbal Education/Instruction Learner response: States/Identifies/Teaches back Learning preferences: Auditory Learning considerations: No barriers/ready to learn Stroke education: (Stroke and increased risk of dysphagia) Patient Instruction/Education comments: Patient was educated on results and recommendations from evaluation including recommendations for Regular diet with thins, no dysphagia concerns at this time. Patient acknowledged all information and without questions at this time Acute ENTRY LEVEL MARKETING ASSISTANT Goals Plan of Care by Carmelita Murphy, ENTRY LEVEL MARKETING ASSISTANT at 11/22/2023 10:43 AM Version 1 of 1 Problem: Dysphagia Goal: Education 1 - Patient and/or caregiver will verbalize 2-3 swallow deficits and ways to reducerisks associated with aspiration when provided minimal cues to improve insight and understanding regarding current oropharyngeal swallow function Outcome: Met Progress: Goal met- see above education section. Speech Language Pathologist: JUANCARLOS Brady Time In: 1015 Time Out: 1033 Total Visit Time: 18 minutes Total Treatment Time (skilled, billable minutes): 18 minutes Non-billable assistance during session: NA Assisted by during session: NA PPE used during patient interaction: facemask, gloves Patient location/status at end of session: chair Patient alarms at end of session: none altered Needs in reach. ENTRY LEVEL MARKETING ASSISTANT Evaluation and Treatment Time Swallowing Eval [id number]: 18 Upon discontinuation of Acute Care Speech Therapy Services or patient discharge from the hospital this note represents the current Speech Therapy Discharge Summary * Taryn Cardona MD - 11/22/2023 9:51 AM EDT CVICU Attending Critical Care NoteASSESSMENT AND PLAN ASSESSMENT AND PLAN Yony Vega is a 68 y.o. patient s/p R TCAR by Boom Ford MD on surgery date 11/16/2023. ICU Summary: 11/15:TCAR with sedation 11/17 - admit from floor w troponin leak and respiratory insufficiency Important points to emphasize in the critical care management are: Acute post-op respiratory insufficiency: - Continue with HHFNC - Wean FiO2 - OOBTC, PT/OT, IS as able -LASIX this am . NSTEMI: - Plan for C - Trop downtrending, no chest pain currently. - Continue DAPT, heparin gtt. - Add NTG with recurrence. Carotid stenosis: - POD TCAR - ASA, clopidogrel, statin. - Serial exams. -Prior CVAs TIA -Hx of CVA - TIA 11/20 -ASA, STATIN, SPL Type 2 DM -Endo following RELEVANT INFORMATION VITALS: Blood pressure 130/60, pulse 59, temperature 97.7 F (36.5 C), temperature source Oral, resp. rate 14, height 1.676 m (5' 6), weight 63.8 kg (140 lb 10.5 oz), SpO2 97%. pH/PCO2/PO2/HCO3: 7.44/50/62/34 (11/20 1449) Documentation of LDA necessity Line necessity: N/A Mackenzie necessity: N/A Airway necessity: N/A I spent 42 minutes providing critical care services and making complex medical decisions for this critically ill patient on behalf of Boom Ford MD. This time includes examining the patients, reviewing patient data, discussions with other providers and speaking to family members. This time does not include performing any procedures. I have discussed this patient with the ADRIÁN and agree with their assessment, plan and decision making or have made amendments where appropriate. Documentation of Comorbid Conditions Complexity. Hypocalcemia - Continue to monitor and replete. Any conditions listed below are present on admission unless otherwise specified. .Peripheral Vascular Disease - carotid stensois s/p prior CEA, TCAR Ischemic CVA, Location: by [facility] - Shayna, ASHLIE Cardona MD 11/22/2023 9:51 AM * Kristan Ernst MD - 11/22/2023 7:48 AM EDT VASCULAR SURGERY PROGRESS NOTE HPI: Yony Vega is a 68 y.o. male who presented with symptomatic right carotid stenosis. Sp right TCAR given previous R CEA on 11/15 cb NSTEMI sp LHC on 11/19. Subjective: Eventful morning yesterday. Developed left arm weakness and difficulty naming objects. Code stroke called. Imaging negative for acute stroke. TCAR stent patent. This AM, patient is fully recovered. Neuro at baseline. Remains on [facility]. CXR with pulmonary edema. Objective: Vital Signs: Temp: [97.1 F (36.2 C)-97.7 F (36.5 C)] 97.7 F (36.5 C) Pulse (Heart Rate): [58-74] 61 Resp Rate: [10-22] 14 BP: (93-142)/(55-66) 130/60 O2 Sat (%): [90 %-100 %] 97 % Weight: [63.8 kg (140 lb 10.5 oz)-65.8 kg (145 lb 1 oz)] 63.8 kg (140 lb 10.5 oz) Fluid Management: I/O last 3 completed shifts: In: 383.6 [P.O.:240; I.V.:111; IV Piggyback:32.6] Out: 1375 [Urine:1375] Wt Readings from Last 3 Encounters: 11/22/23 63.8 kg (140 lb 10.5 oz) 08/29/23 67.4 kg (148 lb 11.2 oz) 07/19/23 67.1 kg (148 lb) Physical Exam: Gen: NAD, resting comfortably Neuro: CN II-XII grossly intact, no focal signs. Baseline LUE weakness Cardiac: RRR Lungs: Heated high flow NC Abd: soft, NT, ND Incision: right neck incision soft with improved hematoma. Surrounding skin ecchymotic and macerated. Left groin soft without hematoma Extremities: pink, warm, no new ulcers/wounds, no edema, 5+ motor, sensation intact in BLE Pulses: signal in RT DP/PT Labs: WBC/Hgb/Hct/Plts: 5.22/9.4/29.7/221 (11/21 32) Na/K+/Phos/Mg/Ca: 136/3.8/--/1.8/-- (11/21 32) Bun/Creat/Cl/CO2/Glucose: 28/0.90/92/35/234 (11/21 0033-11/21 0720) Imaging: no new imaging this morning - Venous duplex 11/19 no DVTs in BLLE Assessment & Plan: Yony Vega is a 68 y.o. male who presented with symptomatic right carotid stenosis. Found to have Punctuate R frontal and R occipital stroke . Now on 2 Days Post-Op s/p Procedure(s) (LRB): CORONARY ANGIOGRAM WITH LEFT HEART CATH (N/A) CORONARY BYPASS GRAFT ANGIOGRAM (N/A) ULTRASOUND GUIDED ACCESS (N/A) on 11/16/[address] Ford. Please consult speech prior to initiation of diet Recommend continued diuresis w lasix today Discontinue heparin gtt (okay per Cardiology) and continue DAPT Please engage Neurosurgery for intracranial disease Obtain echocardiogram today Continue ICU level care given ongoing respiratory requirements Diet: NPO until speech eval Activity: Advance as tolerated DVT ppx: SCDs Bowel Regimen: Miralax and senna daily, PRN suppository Complexity. Hypocalcemia - Continue to monitor and replete. Any conditions listed below are present on admission unless otherwise specified. . Right carotid stenosis Punctuate R frontal and R occipital stroke - S/p right TCAR - Continue 81 mg ASA and 75 mg Plavix daily Will also need anticoagulation for new afib. Eliquis check--> $0 - Patient will discharged on triple therapy for 1 month. Will stop PLAVIX after 30 days. Then Eliquis and ASA ongoing. --> currently holding heparin gtt, continuing DAPT - Continue crestor - Goal SBP 100-140 mmHg, PRNs available - Continue frequent neuro and vascular checks - PT/OT--> previously recommended SNF. Will re-evaluate post-op - Neurovasc signed off 11/16--> Cont Statin and aspirin. Follow-up with neurovasc in 1-2 weeks (ordered) Acute pain -Pain control: Scheduled tylenol PRN: oxycodone Acute blood loss anemia - Daily CBC, transfuse if less than 7 or symptomatic HLD (POA) - Continue 40mg crestor Lab Results Component Value Date CHOLESTEROL 150 11/13/2023 TRIG 279 (H) 11/13/2023 HDL 29 (L) 11/13/2023 LDLCALC 65 11/13/2023 HTN (POA) - SBP 100-140 - continues to require occasional PRNs - Cont home coreg and norvasc Mood disorder, POA - Continue home duloxetine 60 mg DM, POA - Takes insulin lispro at home - Continue SSI here - Carb controlled diet GERD, POA - Takes omeprazole at home - Continue Protonix here CAD/CABG (2007, Stent placed in 2014, Bypass in 2007) - ASA and statin as above - sp [facility] 11/19 without intervention Paroxymal Atrial Fibrillation - Coreg as above - [id number] at 6 - On therapeutic anticoagulation at home, will need to revisit on discharge - Cardiology follow-up in 4-6 weeks. 30 day tele monitor at discharge The patient continues to require the followings lines, tubes and drains: PIVs These are required for the following reasons: Continuation of inpatient Care PLAN - Cont DAPT - Carb controlled diet - May check DOAC. Eliquis $0/month - PT/OT for dispo planning Dispo: Continue ICU care. Dispo pending . Therapy recommending SNF. Kristan Ernst MD 11/22/2023 Vascular Surgery, PGY-3 [phone] * Valerie Joce Morales, CREDIT CONSULTANT-CLOUD DEVELOPER - 11/22/2023 6:18 AM EDT CVICU DAILY PROGRESS NOTE. HISTORY OF PRESENT ILLNESS: Mr. Vega is a 68 y.o. male who has a pertinent past medical history including CAD s/p CABG 2007 and subsequent PCI 2014, prior CVAs, pAF, HTN, HLD, DM, prior R CEA who underwent R TCAR on 11/15 given prior CEA. Patient started to have chest discomfort evening of 11/16 and increased WOB. EKG showedelevation in aVR and inferior and anterolateral depression. Over the course of the day, respiratorystatus worsened up to 9L and NIMV. He was transferred to the ICU due to respiratory needs Hospital course: 11/15: right sided TECAR 11/16: NSTEMI 11/17: Transferred to ICU for increasing respiratory needs 24hr interval history: Stroke code called 11/20 AM for L sided weakness, blurred vision, and inability to name simple objects. Stat CTH with no acute abnormalities, symptoms resolved. Did well on BiPAP overnight. Plan for 11/22/2023: - c/s NSGY - continue DAPT - Diurese with Lasix - wean HHFNC for oxygen sat >90% - PT/OT - speech evaluated, cleared for carb controlled diet SYSTEM BASED PLAN . Neurological: Acute Post-Operative Pain -- - PRN oxy and tylenol - reports pain is controlled on current regimen Agitation/Delirium- Overall CAM-ICU: Negative - Delirium precautions - Day/night sleep cycle, sleep hygiene C/f TIA - LKW 0800 11/20, developed increased L sided weakness, blurred vision, and confusion while working with PT. Stroke code called - STAT CTH and CT angio brain/neck without acute process - c/s NSGY, known intracranial carotid lesions seen on CTA, may need intervention given TIA symptoms s/p TCAR Depression - Continue home Cymbalta Prior CVA (2008, 2011 with L side decrease sensation) - Underwent TCAR on 11/14 - Plan to continue home ASA and Plavix Cardiovascular: Right carotid stenosis s/p TCAR on 11/14 - Continue DAPT. Plan to discharge on DAPT and DOAC for 1 month. Stop Plavix after 30 days and continue Eliquis and ASA - Continue statin - S/p heparin gtt Hypertension- - SBP goal <140 - Home medications: coreg 6.25 and Amlodipine - Continue Coreg 12.5mg PO BID and Amlo 5 every day CAD s/p CABG 2007 and PCI in 2014 - Continue ASA, statin, and Coreg NSTEMI - ECG with ST elevation in aVR and inferolateral ST depresssion on 11/16 - Troponin peaked at 3685, discontinued trend - Continue DAPT - Echo on 11/17 with normal function and no wall motion abnormalities - 11/19 heart cath: occlusion to ambler RCA, grafts from previous bypass patent. Significantly elevated LVEDP @ 40 PAF - Continue coreg - [id number] at 6 - Cardiology recommending DAPT and DOAC for 30 days once appropriate Pulmonary: Acute Post-Operative Respiratory Failure (5+ L) with hypoxia - Maintain O2 Sat > 90% with oxygen as needed - Wean supplemental oxygen/support as able. - Incentive Spirometry while awake - Plan: Pulmonary toilet/diuresis Renal: Normal kidney function - Baseline Creatinine: 0.92 - Baseline GFR: > 60 - Urine output: good - Monitor chemistries Gastrointestinal: Acute Post Operative Constipation - Last Bowel Movement: 11/21/23. - Bowel regimen in place with scheduled miralax and senna. - PRN dulcolax suppository. Current Diet Orders Procedures DIET CARB CONTROLLED Standing Status: Standing Number of Occurrences: 1 Normal: Body mass index is 22.7 kg/m . Integumentary/Musculoskeletal Active Incisions Wounds - Wound Abrasion 11/13/23 0215 Right Back (9) Wound Surgical 11/16/23 1241 Right Carotid (6) Wound Sheath Site 11/16/23 1305 Anterior;Left Femoral (6) Wound Sheath Site 11/20/23 2131 Anterior;Right Greater Trochanter (2) Endocrinology Post-Operative Stress Induced Hyperglycemia - - SSI + 15 units glargine QAM /20 units glargine QHS - endocrinology following for insulin management - HgbA1c= 11/13/2023: Hemoglobin A1C HPLC 7.8 Hematology Post-operative Acute Blood Loss Anemia - No concern for ongoing blood loss - CTM daily H/H, no indication for transfusion at this time Infectious Disease No issues at this time Complexity Hypocalcemia - Continue to monitor and replete. ICU Liberation Checklist: ABCDEF Bundle Reviewed: [x] Yes [] No Breathing: SBT: [] Passed [] Failed [] Does not meet criteria [x] N/A SAT: [] Yes [] No [x] N/A Vascular Access/Line/Tubes/Drains: Lines to be removed: none List lines, tubes, drains and insertion date: - PIVs Assessed insertion site: [x] Yes [] No Choice of Analgesia/Sedation: Pain: [x] Controlled [] Uncontrolled Continuous Infusions: [] Sedation [] Analgesia [] NMB [x] None Delirium: Overall CAM-ICU: Negative CAM: [] Positive [x] Negative [] Unable to assess Restraints: [x] None [] Soft limb [] Milady mitts [] Other Prophylaxis Bundle: HOB: 30 degrees Stress ulcer ppx: [] Yes [] Therapeutic [] Home regimen [x] No, not indicated Chemical DVT ppx: [x] Yes [] No, SCDs ordered Therapy Services: ENTRY LEVEL MARKETING ASSISTANT: [x] Swallow [] Cognitive Eval [] Speaking Valve [x] N/A Early Mobility: PT/OT consulted: [x]Yes [] No, d/t clinical status [] No, pt is independent Current Mobility Status: Ambulate OBJECTIVE VITALS: Blood pressure 132/63, pulse 56, temperature 97.9 F (36.6 C), temperature source Oral, resp. rate 23, height 1.676 m (5' 6), weight 63.8 kg (140 lb 10.5 oz), SpO2 98%. PHYSICAL EXAM: GENERAL: Alert, oriented x 3, No acute distress HEENT: PEERL, EOMI, MMM HEART: RRR, +S1+S2 with no adventitious heart sounds LUNG: Non-Labored, no wheezing ABD: Soft, Non-Distended, Non-Tender EXT: Warm, no cyanosis, no edema in bilateral lower extremities. PULSE: Palpable Bilateral DP Pulses MUSC: Moves all 4 Extremities with equal strength NEURO: Grossly intact, no acute deficits appreciated PSYCH: Appropriate for the clinical situation Valerie Morales, CREDIT CONSULTANT-CLOUD DEVELOPER Cardiovascular ICU/ Cardiac Surgery 11/22/23 11:20 AM * EUSEBIO Guadalupe - 11/21/2023 5:22 PM EDT General Cardiology Consult SIGN OFF Thank you for allowing us to participate in the care of Yony Vega. Our consult team will signoff today, 11/21/23. For our full impression and recommendations, please see our most recent consult / progress note. Regarding follow up, please note the following: Follow Up Appointments Patient requires follow up with our specialty in 4 weeks with the next available provider Follow Up Testing No additional testing is required at the follow up visit. Medication Changes No changes were made to patient's cardiovascular medications. If you have any further questions regarding the care of this patient, please do not hesitate to reach out to our team. EUSEBIO Guadalupe 11/21/23 5:22 PM * EUSEBIO Guadalupe - 11/21/2023 4:58 PM EDT CARDIOLOGY CONSULT PROGRESS NOTE Cardiology consult 11/18/23 for chest pain HPI I saw Mr. Yony Vega in follow-up on 11/21/2023. He is a 68 y.o. male with a history of 68 y.o.male with a history of SANTANA s/p right TCAR, AF, CAD s/p CABG admitted on 11/12/2023 with left sided numbness. Hospital course c/b new onset chest pain. ASSESSMENT AND PLAN Chest pain: developed chest pain on 11/16 ( had a right TCAR 11/16/23): hs troponin peaked at 3685 with downward trend;12 lead ECG showed SR with ST depression in inferolateral leads, JONAS in aVR. Subsequent ECG with near resolution from previous ECG. - Nuclear stress test on 11/13 reported no evidence of infarction with no definite evidence for stress induced ischemia. EF 43% - TTE on 11/17 reported normal LV size & function with EF 55-60% with normal wall motion, grade II DD, normal RV, RVSP 44 mm Hg - Coronary angiography 11/19 reported 100% occluded pRCA & LM, patnt ZUNIGA to LAD/D1, patent veingrafts to OM & rpDA, elevated LVEDP 40 mm Hg - no intervention - Denies chest pain - Received IV furosemide 40 mg on 11/19/ & 11/20 for elevated LVED{ - S/P IV heparin x 48 hours post troponin peak - Continue ASA 81 mg daily, Clopidogrel 75 mg daily, coreg 12.5 mg BID, Rosuvastatin 40 mg daily - Follow up with OP cardiology in 4-6 weeks CAD, /p CABG 2007, s/p PCI with stent 2014 - Denies chest pain - Nuclear stress test 11/14/2023 was negative for ischemia or infarction - TTE on 11/17 reported normal LV size & function with EF 55-60% with normal wall motion, grade II DD, normal RV, RVSP 44 mm Hg - Continue ASA, coreg 12.5 mg BID, Rosuvastatin PAF - Remains in SR on telemetry. Continue coreg 12.5 mg every 12 hours - [id number] score of 6- IV heparin stopped- will need a/c at discharge - Mobile renal dietitian at discharge to assess AF burden - Follow up with OP cardiology in 4-6 weeks HTN - Stable. Continue coreg 12.5 mg BID, amlodipine 5 mg daily HLD lipid profile 11/13/23: TC 150, HDL 29, TG 279, LDL 65 - Continue Rosuvastatin 40 mg daily H/o CVA Right carotid stenosis- s/p right TCAR INTERVAL HISTORY/REVIEW OF SYSTEMS This morning, patient had AMS this morning & an ERT was called. He is on CPAP Review of Systems Constitutional: Positive for chills and malaise/fatigue. Cardiovascular: Negative for chest pain, orthopnea and palpitations. Respiratory: Positive for shortness of breath. Negative for wheezing. Musculoskeletal: Negative for back pain and muscle cramps. Gastrointestinal: Positive for nausea. Negative for abdominal pain and vomiting. Neurological: Negative for dizziness and headaches. PHYSICAL EXAM BP 124/58 Pulse 63 Temp 97.7 F (36.5 C) (Axillary) Resp 14 Ht 1.676 m (5' 6) Wt 64.7 kg (142 lb 10.2 oz) Comment: bed SpO2 95% BMI 23.02 kg/m Smoking Status Never Constitutional: Awake, cooperative male, on CPAP Chest: Respiratory effort per CPAP, lung sounds clear with decreased BS in bases bilaterally Cardiovascular: No JVD appreciated. Normal rate & regular rhythm; S1 normal, S2 normal, no gallop, no friction rub or murmur heard. Abdomen: Soft, non-tender, non-distended. +BS. Extremities: No peripheral edema. No stasis dermatitis. Radial pulses 2+ bilaterally, dorsalis pedis pulses are 2+ bilaterally Neurological: Alert and oriented to person, place and time. Skin: Warm, dry. No cyanosis. Nails show no clubbing. CARDIOVASCULAR IMAGING/DATA Results for orders placed during the hospital encounter of 11/12/23 ECHOCARDIOGRAM LIMITED/FOLLOWUP 11/18/2023 (Final) Interpretation Summary Limited study. The left ventricular chamber size and systolic function are normal. LVEF 55-60%. Normal LV wall motion. Grade II diastolic dysfunction. The right ventricular chamber size and systolic function are normal. Estimated RVSP 44 mmHg. 24 hour telemetry (personally reviewed): SR ADDITIONAL DATA REVIEWED Intake/Output Summary (Last 24 hours) at 11/21/2023 1658 Last data filed at 11/21/2023 1400 Gross per 24 hour Intake 361.3 ml Output 1950 ml Net -1588.7 ml Temp: [97.4 F (36.3 C)-98.8 F (37.1 C)] 97.7 F (36.5 C) Pulse (Heart Rate): [62-75] 63 Resp Rate: [11-40] 14 BP: (93-156)/(53-81) 124/58 O2 Sat (%): [90 %-100 %] 95 % Weight: [64.7 kg (142 lb 10.2 oz)] 64.7 kg (142 lb 10.2 oz) Oxygen Therapy O2 Sat (%): 95 % O2 Device: NIMV Flow (L/min): 45 Oxygen Concentration (%): 60 Body mass index is 23.02 kg/m . LABS Bun/Creat/Cl/CO2/Glucose: 28/0.90/95/30/197 (11/20 0025-11/21 1655) Na/K+/Phos/Mg/Ca: 136/4.3/3.4/1.9/8.8 (11/20 24) WBC/Hgb/Hct/Plts: 7.39/9.4/29.8/222 (11/20 24-11/20 824) BNP (pg/mL) Date Value 11/18/2023 259 (H) Lab Results Component Value Date CHOLESTEROL 150 11/13/2023 TRIG 279 (H) 11/13/2023 HDL 29 (L) 11/13/2023 LDLCALC 65 11/13/2023 CURRENT MEDICATIONS: amLODIPine 5 mg Oral Daily aspirin 81 mg Oral Daily balsam-castor oil 1 Application Topical Q8H carveDILOL 12.5 mg Oral Q12H Clopidogrel 75 mg Oral Daily DULoxetine 60 mg Oral QHS Gabapentin 300 mg Oral QHS heparin 5,000 Units Subcutaneous Q8H [START ON 11/22/2023] insulin glargine 15 Units Subcutaneous Daily insulin glargine 20 Units Subcutaneous QHS Insulin lispro Subcutaneous 4x daily w/meals, HS Pantoprazole 40 mg Oral Daily Polyethylene glycol 17 g Oral Daily Rosuvastatin 40 mg Oral Daily Plan made in collaboration with Dr. Dorothy Kendall, cardiology attending [id number] Score for Atrial Fibrillation Stroke Risk Age in Years: 65-74 Sex: Male CHF History: No Hypertension History: Yes Stroke/TIA/Thromboembolism History: Yes Vascular Disease History: Yes Diabetes History: Yes [id number] Score: 6 Complexity. Any conditions listed below are present on admission unless otherwise specified. . Thank you for this consult. Please call with questions. We will continue to follow along. EUSEBIO Guadalupe Cardiology Consult Service Phone: [phone] * EUSEBIO Montero - 11/21/2023 4:43 PM EDT [facility] Inpatient Diabetes Consults - Progress Note- TEAM 2 Impression: Uncontrolled Type 2 Diabetes Mellitus (T2DM) Admitted with Right carotid stenosis Punctuate R frontal and R occipital stroke s/p TCAR on 11/16/2023 Hx HTN, mood disorder, iron deficiency, right-sided carotid endarterectomy (2008), CAD/CABG (2007, Stent placed in 2014, Bypass in 2007), strokes (2008, 2011) DM microvascular complications: retinopathy and peripheral neuropathy A1c on admission: 7.8% Risk: .None Plan 1. Hospital Plan: Glucoses remain elevated. Will add further basal and increase correction insulin until basal on board. Change to Lispro as he has a diet now. Basal: Glargine 15 units QAM and glargine 20 units QHS Prandial: Insulin lispro: 1 unit for every 8 grams of carbs ACHS and PRN Correction: Insulin Regular ->Lispro: 2->3 unit(s) per every 50 mg/dL above 150 mg/dL q6 hours->ACHS 2. Discharge Plan: Please contact our team on day of discharge for definitive recs. QGENDA :TEAM 2 Tentative discharge plan: (Please use the Diabetes Discharge Order Set: Diabetes Orders - for those patients discharged on INSULIN) - If orals or non-insulin injectables recommended, will need to order them outside of the Diabetes Orderset. - Discharge Diet: DIET CARB CONTROLLED- 60 Grams per Meal - Patient Education: Your target blood sugar is 80-130 mg/dl fasting and under 180 mg/dl nonfasting. - Basal/Mealtime - Basal: U100 Glargine PENS with needles, dose TBD. (Or insurance covered equivalent.) Titration: TBD - Mealtime time insulin: FixedvsFlexible: Fixed: U100 Lispro Pens with Pen [place] MAX DAILY DOSE TBD TBD Units for Large Meal or TBD Units for Small Meal PLUS Correction Scale Subcutaneous every meal and at bedtime Correction Scale: (Copy and paste into Note to Pharmacy) 151-200 = 2 units 201-250 = 4 units 251-300 = 6 units 301-350 = 8 units 351-400 = 10 units -Diabetes Supplies: - Glucose monitoring supplies for ACHS: Glucose test strips: dispense 150 with 1 refill - Patient prefers any brand or substitute brand covered by insurance, Lancets: dispense 150 with 1 refill, and alcohol swabs: dispense 200 with 1 refill - The patient will need script for new glucometer: no: Patient prefers any brand or substitute brand covered by insurance -Continuous Glucose Monitoring Devices: - NA -Other Diabetes Supplies: - Glucagon (Baqsimi Two Pack) 3 MG/DOSE Powder 3. Follow up needed: PCP within 1- 2 weeks 1-2 weeks in [facility] at [facility] (12th floor). To schedule this appt call the [facility] at [phone] Option #3. 4. Education: NA today 5. Will review glucoses and discuss with Dr Harris as needed Thank you for allowing us to participate in your patient's care. For provider collection correspondent: CARONA : TEAM 2 CC: hyperglycemia History of Present Illness: Yony Vega is a 68 y.o. year old male who is seen at the bedside with BiPAP on. Diet advanced this AM to clears, but then patient had episode concerning for stroke. ERT called but imaging showedno further stroke. BGs globally elevated Creatinine is normal. Current Diet Orders Procedures DIET CLEAR LIQUID Carb Controlled Standing Status: Standing Number of Occurrences: 1 Order Specific Question: Additional Modifier: Answer: Carb Controlled Current Regimen: Basal: Insulin NPH: 6 units AM and Glargine 20 units QHS Prandial: Insulin lispro: None Correction: Insulin Regular: 2 unit(s) per every 50 mg/dL above 150 mg/dL q6 hours Daily Glucose Review: Date Daily glucose review TDD Basal Prandial/ Correction 11/19/2023 304, 363, 250, 273, 250, 32 12 20 11/20/2023 214, 186, 211, 220, 200, 213 26 12 11/21/23 204, 247, 254 Review of Systems - ROSARIO Physical Exam Constitutional: Well-developed, well-nourished, overweight male in no acute distress. Pulmonary/Chest: Respirations even and unlabored on BiPAP Musculoskeletal: No acute abnormalities noted Neurological: Somnolent Temp: [97.4 F (36.3 C)-98.8 F (37.1 C)] 97.7 F (36.5 C) Pulse (Heart Rate): [62-75] 62 Resp Rate: [11-40] 17 BP: (93-156)/(53-81) 118/59 O2 Sat (%): [90 %-100 %] 100 % Weight: [64.7 kg (142 lb 10.2 oz)] 64.7 kg (142 lb 10.2 oz)Admission/Adult (Dosing) Weight: 65.3 kg(144 lb) Most recent entered Weight: 64.7 kg (142 lb 10.2 oz) (bed) Body mass index is 23.02 kg/m . Background History Yony Vega is a 68 y.o. year old male with Type 2 Diabetes Mellitus (T2DM) diagnosed in 2018 who is seen in consultation at the request of Boom Ford MD for assistance with evaluation of hyperglycemia and to make treatment recommendations. He was interviewed at his bedside in [place]. Per review of his chart and discussion with patient he has a significant history of type 2 diabetes, CAD s/p CABG in 2007 ([facility]) and stent in 2014, previous CVA c/g L-sided numbness 2/ RCIA internal carotid artery s/p CEA ~2011, colorectal cancer s/p APR w/ LPLND (2019), and reported PAD s/p R pop,R anterior tibial angioplasties (2014) and L anterior tibial, L peroneal, and L popliteal angioplasties (2015) who presents to [facility] with L facial numbness, word slurring, and balance issues. Stroke code was called, and patient underwent carotid ultrasound showing 70-99% stenosis R JUSTUS. He was admitted with Right carotid stenosis, Punctuate R frontal and R occipital stroke and is s/p TCAR on 11/16/19 24 In regard to his history of diabetes he is taking basal bolus insulin with dosing as below. He injects in his abdomen. He notes hard spots at his injection sites at times (they last for less than 24 hours). He uses a glucose meter to monitor his blood sugar. Diabetes History: Type of Diabetes: Type 2 Diabetes Mellitus (T2DM) Diagnosis (aprox date): 2018 Outpatient Clinic: PCP Home regimen: Basal: Glargine 50 units twice daily Prandial: Lispro per a corrective scale Diabetes Complications: retinopathy and peripheral neuropathy Date of most recent dilated eye exam: was due for an appointment this admission Tobacco/Nicotine: He reports that he has never smoked. He has never used smokeless tobacco. Home blood glucoses: glucose meter: He is checking his blood sugars about 3-4 times per day Reports ranging from the 100s to 200 range typically Recent A1c: Lab Results Component Value Date HGBA1C 7.8 (H) 11/13/2023 Lab Results Component Value Date CHOLESTEROL 150 11/13/2023 TRIG 279 (H) 11/13/2023 HDL 29 (L) 11/13/2023 LDLCALC 65 11/13/2023 Lab Results Component Value Date SODIUM 136 11/21/2023 POTASSIUM 4.3 11/21/2023 CHLORIDE 95 (L) 11/21/2023 CO2 30 11/21/2023 BUN 28 (H) 11/21/2023 CREATSERUM 0.90 11/21/2023 GLUCOSE 254 (H) 11/21/2023 No results found for: CREATURINE, MICROALBUMIN, MICALBCREAT Lab Results Component Value Date ALT 18 11/13/2023 No results found for: PREALBUMIN Cardiac echo: EF = Results for orders placed during the hospital encounter of 11/12/23 ECHOCARDIOGRAM LIMITED/FOLLOWUP 11/18/2023 (Final) Interpretation Summary Limited study. The left ventricular chamber size and systolic function are normal. LVEF 55-60%. Normal LV wall motion. Grade II diastolic dysfunction. The right ventricular chamber size and systolic function are normal. Estimated RVSP 44 mmHg. * Pamela Jones MD - 11/21/2023 1:14 PM EDT VASCULAR SURGERY STAFF NOTE: Seen - reviewed CTA. Hematoma over the right neck but mostly superficial. Slight increase when compared to over the weekend. CPAP in place, but patient is arousable and conversant. No pain, denies any wheezing or difficulty swallowing. Hematoma feels firm but mobile. Will continue to monitor. Recommend head up as much as possible. Pamela Jones MD Department of Vascular Surgery [facility] 11/21/2023 * JUAN RAMON Do - 11/21/2023 10:30 AM EDT Images from the original note were not included. Responded to automated page event for ERT. Medical staff providing care to patient at the time of arrival. Family not present at this time. Career Services Coordinator support is available upon request. Chaplains are available in-house 24 hours a day and 7 days a week. For urgent matters in [facility], please page [phone]. If the request is not urgent, please enter a consult. Consults are responded to within 24 hours. Rev. Valdo Henning MA [employer], [facility] Department of Alarm Installation Technician and Clinical Pastoral Education [address], [address] [place], [address] ([place]) pager [phone] [email or web address] 11/21/23 1030 Clinical Encounter Type Visited With Health Care Provider;Family not available;Patient not available Visit Type Follow-up Crisis Visit ERT Pastoral Time Spent 15 min Referral Automated Page Interventions Provided Supportive presence Alarm Installation Technician Education Alarm Installation Technician Service Available Yes Plan of Care Continue Visiting PRN * Shekhar Escamilla, PT - 11/21/2023 10:24 AM EDT Acute Physical Therapy Treatment Prior to Admission [facility] score(s): PRIOR LEVEL AM-PAC Mobility Raw Score: 24 PRIOR LEVEL AM-PAC Activity Raw Score: 24 Current AM-PAC score(s): CURRENT AM-PAC Mobility Raw Score: 8 Based on the above AM-PAC score(s) and PT clinical judgment, patient is a good candidate for discharge to Long-Term Facility Barriers to discharge home: Patient needs assistance with functional mobility Mobility equipment available at home: 2 wheeled walker, rollator ADL equipment available at home: shower chair, grab bars, hand held shower hose, elevated toilet seat Equipment needed for discharge: to be determined Current therapy frequency recommendation in acute: Therapy Frequency: 5 times a week Precautions and Weightbearing Status: Existing Precautions/Restrictions: cardiac, fall, supplemental oxygen (TECAR Precautions) Urinary catheter, Telemetry, Central line Patient Safety Communication Prior to Visit: Nursing (RASHI Corrigan and RASHI Evans) Subjective: Pt agreeable to session reporting he had some good juice yesterday. Pain: General Pain Documentation (Adult, OB, Peds) Presence of Pain: denies pain/discomfort Presence of Pain Score (Auto-calculated): 0 Objective/Observation: Vitals/Vitals Responses to Treatment: Stable with session. Pulse ox 98% O2 Device: heated high-flow nasal cannula Cognition Arousal/Alertness: Delayed responses to stimuli Orientation Level: Oriented to person, Oriented to place Following Commands: Follows one step commands with increased time, Follows one step commands with repetition Safety Judgment: Decreased awareness of need for assistance Extremity Assessments: See PT Evaluation flowsheet for Extremity Measurement updates. Skin and Edema: Balance: Sitting Balance Static Sitting-Level of Assistance: Minimum assistance Dynamic Sitting-Level of Assistance: Minimum assistance Skilled Rationale: Positioning, Sequencing, Verbal cues, Tactile cues, Energy conservation, Breathing strategies Sitting Balance Skilled Intervention/Details: Pt completed 7-8 minutes of seated balance working onmidline control and upright posture with keeping his weight forward. During this time he also completed tasks with the OT. As the session progressed and gait was completed pt was seated into a chair for rest break and further assessment. Pt overall performance not similar to yesterday and this was unclear. MMTs were completed on his LEs which were equal 4/5, OT completd UEs. Command following waspoor, pt reported some blurry vision with him unable to determine if it was new or old, and pt withtrouble naming objects but unclear if this was due to his vision or other. Team rounding at this time during the session and the team (PAC Carla and ARTI Morales) both notified and addressed. RN had also been notified and was already present and aware. Pt left in chair with RN permission and he was positioned to comfort and safety with team assessing pt. PVS provider Farhan also present end of sesion and addressing with PVS physicians. Standing Balance Static Standing-Level of Assistance: Minimum assistance Dynamic Standing-Level of Assistance: Moderate assistance, 2-person assist Skilled Rationale: Positioning, Sequencing, Verbal cues, Tactile cues, Energy conservation, Breathing strategies Standing Balance Skilled Intervention/Details: Pt completed 2-3 minutes standing at sink with OT completing task while PT worked on his midline trunk control and pevis. This static hold required contact guard assist x1 to maintain after initial training with dynamic remaining mod x2. Mobility Assessment/Intervention: Supine to Sit Mobility [place] Level: Supine->Sit: moderate assist (50% patient effort) Skilled Rationale: Positioning, Verbal cues, Tactile cues, Sequencing, Technique of activity Transfer Assessment/Intervention: Sit to Stand Transfer [place] Level: Sit->Stand: moderate assist (50% patient effort) Physical Assist: Sit->Stand: 2 person assist Skilled Rationale: Positioning, Sequencing, Verbal cues, Tactile cues Skilled Intervention/Details: Sit->Stand: x3 Stand to Sit Transfer [place] Level: Stand->Sit: moderate assist (50% patient effort) Physical Assist: Stand->Sit: 2 person assist Bed-Chair Transfer [place] Level: Bed<->Chair: moderate assist (50% patient effort) Physical Assist: Bed<->Chair: 2 person assist Skilled Rationale: Positioning, Sequencing, Verbal cues, Tactile cues Gait/Functional Mobility Assessment/Intervention: Gait Assessment [place] Level: Gait: moderate assist (50% patient effort) Physical Assist: Gait: 2 person assist, chair follow Ambulation Distance (Feet): (3-5) Gait Deviations Identified: decreased jomar, decreased gait speed, decreased step length, decreased stride length Gait Skilled Rationale: tactile, verbal, improve foot placement Skilled Intervention/Details - Gait: Verbal cues provided for posture and stepping and once he was able to get his feet under his trunk he did a good job taking steps but overall motor plan appeared to be poor. It was after this gait that pt was sat into chair and assessed as noted above in sittingbalance session with team and RN notified and into room to assess pt. Stairs Assessment/Intervention: Outcome Score(s): CURRENT [facility] Basic Mobility Inpatient Short Form Turning over in bed: 2 - A Lot of Assistance Moving from lying on back to sittin - A Lot of Assistance Moving to and from bed to chair: 1 - Total Assistance Sitting/standing from chair: 1 - Total Assistance Walk in hospital room: 1 - Total Assistance Climbing 3-5 steps with a railin - Total Assistance CURRENT [facility] Mobility Raw Score: 8 CURRENT [facility] Mobility Functional Limitation: 86.62% Impaired in Basic Mobility Interventions: Assessment & Plan: Pt with some progress toward goals but with unclear overall change to both his command following and motor control. Pt performance not similar to prior session and pt appeared unable to concentrate on commands given. Due to this unclear picture the medical team was notified and into room to assess patient. PT will continue to progress to his tolerance pending team work-up. Patient Instruction/Education this session: Plan for next session: Gait Acute PT Goals Plan of Care by Shekhar Escamilla PT at 11/21/2023 1:43 PM Version 1 of 1 Problem: PT - General Goals Goal: Supine <-> Sit Transfers - Patient will perform supine to/from sit transfers with standby assistance and without use of hospital bed features in order to improve functional mobility and safety. Outcome: Progressing Goal: Sit <-> Stand Transfers - Patient will perform sit to/from stand transfers with standbyassistance and wheeled walker in order to improve functional mobility and safety. Outcome: Progressing Goal: Ambulation - Patient will ambulate 150 feet with standby assistance and wheeled walker to improve ability to safely navigate home and community. Outcome: Progressing PT treatment consisted of the following to progress towards the above goal(s): PT Evaluation and Treatment Time Therapeutic Activity Time Entry: 15 Gait Training Time Entry: 8 Treating Therapist: Shekhar Escamilla PT Additional Details: PT Co-Eval/Treatment Information Co-evaluation/co-treatment performed?: Yes, simultaneous billable skilled care was necessary due tomedical complexity and functional deficits Other discipline: OT Rationale for need to co-eval/treat: postural control Co-treatment goal focus: balance, mobility, transfer, endurance, strength PPE used during patient interaction: facemask, gloves Patient location at end of session: chair Alarms on at end of session: none (Per RN. Pt left [facility] RN.) Needs in reach. Time In: 0956 Time Out: 1024 Total Visit Time: 28 minutes Total Treatment Time (skilled, billable minutes): 28 minutes Upon discontinuation of Acute Care Physical Therapy Services or patient discharge from the hospitalthis note represents the current Physical Therapy Discharge Summary. * Bessie Bean OT - 11/21/2023 9:57 AM EDT Acute Occupational Therapy Treatment Prior to Admission AM-PAC Score: PRIOR LEVEL AM-PAC Activity Raw Score: 24 PRIOR LEVEL AM-PAC Mobility Raw Score: 24 Current AM-PAC score(s): CURRENT AM-PAC Activity Raw Score: 12 Based on the above AM-PAC score(s), and OT clinical judgment, discharge destination recommendation is: Long-Term Facility Barriers to discharge home: Patient needs assistance with ADLs, Patient needs assistance with IADLs(see note below), Patient needs assistance with self-care for medical condition (see note below) Mobility equipment available at home: 2 wheeled walker, rollator ADL equipment available at home: shower chair, grab bars, hand held shower hose, elevated toilet seat Equipment recommendations for discharge: to be determined Current therapy frequency recommendation(s) in acute: 5 times a week Activity Recommendations for outside of rehab session: OOB for meals Precautions and Weightbearing Status: OT Existing Precautions/Restrictions: supplemental oxygen Telemetry Patient Safety Communication Prior to Visit: Nursing Subjective: I slept a lot last night. Pain: General Pain Documentation (Adult, OB, Peds) Presence of Pain: denies pain/discomfort Presence of Pain Score (Auto-calculated): 0 Objective/Observation: Vitals/Vitals Responses to Treatment: 11/21/23 0957 Vitals ICU/PCU Pulse (Heart Rate) 66 Resp Rate 21 BP 116/56 MAP (mmHg) 80 mmHg Oxygen Therapy O2 Sat (%) 91 % O2 Device heated high-flow nasal cannula Oxygen Concentration (%) 80 O2 Device: heated high-flow nasal cannula Cognition Overall Cognitive Status: Impaired Cognition Comments: Lethargic, flat affect, poor attention to task, poor kinesthesia, reduced insight, and increased time required to follow all commands - RN and MD informed during session ADL Assessment/Intervention: ADLs: Grooming Assistance: Minimal Grooming Location: standing at sink Grooming Intervention/Details: Pt stood sink side x2:30 to brush his teeth with max verbal cues forpostural alignment in midline due to kyphotic posture and [id number] cues for task due to reducedkinesthetic awareness and difficulty bringing toothbrush/cup to mouth. UE Dressing Assistance: Maximal UE Dressing Location: edge of bed UE Dressing Intervention/Details: Pt demo'ed difficulty problem solving how to put UE through gown despite therapist providing verbal/visual/tactile cues. Pt able to elevate UE and therapist donned/tied gown. Extremity Assessments: See OT Evaluation flowsheet for Extremity Measurement updates. Balance: Sitting Balance Static Sitting-Level of Assistance: Minimum assistance Dynamic Sitting-Level of Assistance: Minimum assistance Standing Balance Static Standing-Level of Assistance: Minimum assistance Dynamic Standing-Level of Assistance: Moderate assistance, 2-person assist Standing-Balance Support: 2 wheeled walker Mobility Assessment/Intervention: Supine to Sit Mobility [place] Level: Supine->Sit: moderate assist (50% patient effort) Bed Features/Set-up: Supine->Sit: Head of bed elevated, Use of bed rail Skilled Rationale: Positioning, Sequencing, Hand placement, Verbal cues Skilled Intervention/Details: Supine->Sit: Pt initiated progressing LE toward EOB and required assistance to advance off bed and right trunk to midline due to generalized weakness. Transfer Assessment/Intervention: Sit to Stand Transfer [place] Level: Sit->Stand: moderate assist (50% patient effort) Physical Assist: Sit->Stand: 2 person assist Assistive Device: Sit->Stand: 2 wheeled walker Skilled Rationale: Sequencing, Positioning, Hand placement, Verbal cues Skilled Intervention/Details: Sit->Stand: x3 reps; cues to rock forward and count to 3 to gain momentum in preparation for ascent with tactile cues provided at hips/knees to reduce risk of posterior LOB. Stand to Sit Transfer [place] Level: Stand->Sit: moderate assist (50% patient effort) Physical Assist: Stand->Sit: 2 person assist Assistive Device: Stand->Sit: 2 wheeled walker, armed chair Skilled Rationale: Hand placement, Verbal cues, Cues for increased safety, Controlled descent for sitting Skilled Intervention/Details: Stand->Sit: Cues to cross UE over chest and utilize eccentric control to slowly descend into chair. Functional Mobility: Functional Mobility [place] Level: Functional Mobility/Gait: moderate assist (50% patient effort) Physical Assist: Functional Mobility/Gait: 2 person assist, chair follow Assistive Device: Functional Mobility/Gait: 2 wheeled walker (attempted to utilized 4WW, however, pt demo'ed significant safety awareness deficits and pushing 4WW too far out in front of him; decision made to utilize RW for increased safety) Functional Mobility Distance: Distance needed to access restroom Functional Mobility Deficits: Activity tolerance, Balance, Generalized weakness, Problem solving, Sequencing, Shortness of breath, Decreased step length, Attention Functional Mobility Skilled Rationale: Breathing strategies, Cues for increased safety, Facilitate anterior shift, Facilitate positioning, Hand placement, Facilitate postural control, Proper pacing, Technique of activity, Tactile cues Skilled Intervention/Details - Functional Mobility/Gait: Pt completed functional mobility in room (~3' and 6') to simulate home environment. Pt required hands on assistance for balance and cues for safe RW management due to reduced attention to task, reduced safety awareness, and reduced kinesthetic awareness. Functional mobility completed to increase endurance and ease activity demands of OOB and standing I/ADL tasks. Outcome Score(s): CURRENT AM-[facility] Daily Activity Inpatient Short Form Putting on/Taking Off Lower Body Clothin - Total Assistance Bathin - A Lot of Assistance Toiletin - Total Assistance Putting on/Taking Off Upper Body Clothin - A Lot of Assistance Groomin - A Little Assistance Eatin - A Little Assistance CURRENT AM-[facility] Activity Raw Score: 12 CURRENT AM-[facility] Activity Functional Limitation/Modifier: 66.57% Currently Impaired in Daily Activity- CL Assessment & Plan: Pt demonstrating fair progress toward skilled nursing goals as evidenced by ability to perform standing ADLs and limited mobility in room. Pt limited by activity tolerance deficits, generalized weakness, strength deficits, and cognitive deficits in ability to perform self-care tasks with independence. Team informed of deficits in vision, balance, proprioception, and kinesthesia during session, and neuro paged to assess pt due to change in status from yesterday's therapy session. Pt will benefit from continued rehab at SNF to progress toward skilled nursing goals. Pt will continue to benefit from skilled OT during hospital admission for ADL retraining and fall prevention to increase independence with self care tasks and reduce burden of care at discharge. Patient Instruction/Education this session: Learners: Patient Education provided: Balance training Plan for next session: Standing ADLs Acute OT Goals Plan of Care by Bessie Bean OT at 11/21/2023 10:30 AM Version 1 of 1 Problem: OT - Transfers Goal: Transfers Toilet/ Bedside Commode - Patient will transfer to/from toilet with modified independence for improved ability to safely complete ADLs. Outcome: Progressing Problem: OT - Balance Goal: Balance - Standing - Patient will perform 7 minutes of functional task in standing with modified independence and good balance to promote safety and improved balance required for self-care activities. Outcome: Progressing Problem: OT - Vision Goal: Visual Scanning Functional Mobility - Patient will use appropriate visual scanning techniqueswith no cues during functional mobility to promote safety and success during daily routine without hitting items on his right. Outcome: Progressing OT treatment consisted of the following to work and progress towards the above goal(s): OT Evaluation and Treatment Time Self Care/Home Management (ADLs) Time Entry: 10 Therapeutic Activity Time Entry: 17 Treating Therapist: Bessie Bean OT Additional Details: OT Co-Eval/Treatment Information Co-evaluation/co-treatment performed?: Yes, simultaneous billable skilled care was necessary due tomedical complexity and functional deficits Other discipline: PT Rationale for need to co-eval/treat: cognitive issues, coordination issues, postural control (balance deficits) Co-treatment goal focus: balance, mobility, transfer, endurance, coordination, self-care, cognition, strength Assisted by during session: Jeremias, PT PPE used during patient interaction: gloves, facemask Patient location at end of session: chair Alarms on at end of session: (team in room at end of session) Needs in reach. Time In: 956 Time Out: 1024 Total Visit Time: 27 minutes Total Treatment Time (skilled, billable minutes): 27 minutes Upon discontinuation of Acute Care Occupational Therapy Services or patient discharge from the hospital this note represents the current Occupational Therapy Discharge Summary. * Molly Michel MD - 11/21/2023 7:11 AM EDT VASCULAR SURGERY PROGRESS NOTE HPI: Yony Vega is a 68 y.o. male who presented with symptomatic right carotid stenosis. Sp right TCAR given previous R CEA on 11/15 cb NSTEMI sp LHC on 11/19. Subjective: LHC performed yesterday w/o intervention. NIMV transitioned to heated high flow nasal cannula, 45L 70% FiO2. Required PRN hydralazine x1 and received IV lasix 40mg ~@2100. This morning c/o mild headache, denies numbness/weakness. Objective: Vital Signs: Temp: [97.4 F (36.3 C)-100.3 F (37.9 C)] 97.4 F (36.3 C) Pulse (Heart Rate): [63-83] 65 Resp Rate: [11-40] 15 BP: (111-156)/(53-81) 123/58 O2 Sat (%): [89 %-100 %] 91 % Weight: [64.7 kg (142 lb 10.2 oz)] 64.7 kg (142 lb 10.2 oz) Fluid Management: I/O last 3 completed shifts: In: 126.8 [I.V.:106.8; Other:20] Out: 1665 [Urine:1575; Other:20] Wt Readings from Last 3 Encounters: 11/21/23 64.7 kg (142 lb 10.2 oz) 08/29/23 67.4 kg (148 lb 11.2 oz) 07/19/23 67.1 kg (148 lb) Physical Exam: Gen: NAD, resting comfortably Neuro: CN II-XII grossly intact, no focal signs. Baseline LUE weakness Cardiac: RRR Lungs: Heated high flow NC Abd: soft, NT, ND Incision: right neck incision soft with improved hematoma. Surrounding skin ecchymotic and macerated. Left groin soft without hematoma Extremities: pink, warm, no new ulcers/wounds, no edema, 5+ motor, sensation intact in BLE Pulses: signal in RT DP/PT Labs: WBC/Hgb/Hct/Plts: 7.39/9.4/29.8/236 (11/20 24) Na/K+/Phos/Mg/Ca: 136/4.3/3.4/1.9/8.8 (11/20 24) Bun/Creat/Cl/CO2/Glucose: 28/0.90/95/30/204 (11/20 24-11/20 540) Ptt/Pt/Inr: 109.3/--/-- (11/20 536) Imaging: no new imaging this morning - Venous duplex 11/19 no DVTs in BLLE Assessment & Plan: Yony Vega is a 68 y.o. male who presented with symptomatic right carotid stenosis. Found to have Punctuate R frontal and R occipital stroke . Now on 1 Day Post-Op s/p Procedure(s) (LRB): CORONARY ANGIOGRAM WITH LEFT HEART CATH (N/A) CORONARY BYPASS GRAFT ANGIOGRAM (N/A) ULTRASOUND GUIDED ACCESS (N/A) on 11/16/[address] Ford. Advance diet to CLD Recommend continued diuresis w lasix today Discontinue heparin gtt (okay per Cardiology) and continue DAPT CXR this morning Continue ICU level care given ongoing respiratory requirements Diet: NPO okay to advance to CLD Activity: Advance as tolerated DVT ppx: SCDs Bowel Regimen: Miralax and senna daily, PRN suppository Complexity. Any conditions listed below are present on admission unless otherwise specified. . Right carotid stenosis Punctuate R frontal and R occipital stroke - S/p right TCAR - Continue 81 mg ASA and 75 mg Plavix daily Will also need anticoagulation for new afib. Eliquis check--> $0 - Patient will discharged on triple therapy for 1 month. Will stop PLAVIX after 30 days. Then Eliquis and ASA ongoing. --> currently holding heparin gtt, continuing DAPT - Continue crestor - Goal SBP 100-140 mmHg, PRNs available - Continue frequent neuro and vascular checks - PT/OT--> previously recommended SNF. Will re-evaluate post-op - Neurovasc signed off 11/16--> Cont Statin and aspirin. Follow-up with neurovasc in 1-2 weeks (ordered) Acute pain -Pain control: Scheduled tylenol PRN: oxycodone Acute blood loss anemia - Daily CBC, transfuse if less than 7 or symptomatic HLD (POA) - Continue 40mg crestor Lab Results Component Value Date CHOLESTEROL 150 11/13/2023 TRIG 279 (H) 11/13/2023 HDL 29 (L) 11/13/2023 LDLCALC 65 11/13/2023 HTN (POA) - SBP 100-140 - continues to require occasional PRNs - Cont home coreg and norvasc Mood disorder, POA - Continue home duloxetine 60 mg DM, POA - Takes insulin lispro at home - Continue SSI here - Carb controlled diet GERD, POA - Takes omeprazole at home - Continue Protonix here CAD/CABG (2007, Stent placed in 2014, Bypass in 2007) - ASA and statin as above - sp [facility] 11/19 without intervention Paroxymal Atrial Fibrillation - Coreg as above - [id number] at 6 - On therapeutic anticoagulation at home, will need to revisit on discharge - Cardiology follow-up in 4-6 weeks. 30 day tele monitor at discharge The patient continues to require the followings lines, tubes and drains: PIVs These are required for the following reasons: Continuation of inpatient Care PLAN - Cont DAPT - Carb controlled diet - May check DOAC. Eliquis $0/month - PT/OT for dispo planning Dispo: Continue ICU care. Dispo pending . Therapy recommending SNF. Molly Michel MD 11/21/2023 * Valerie Morales APRN-CLOUD DEVELOPER - 11/21/2023 6:25 AM EDT CVICU DAILY PROGRESS NOTE. HISTORY OF PRESENT ILLNESS: Mr. Vega is a 68 y.o. male who has a pertinent past medical history including CAD s/p CABG 2007 and subsequent PCI 2014, prior CVAs, pAF, HTN, HLD, DM, prior R CEA who underwent R TCAR on 11/15 given prior CEA. Patient started to have chest discomfort evening of 11/16 and increased WOB. EKG showedelevation in aVR and inferior and anterolateral depression. Over the course of the day, respiratorystatus worsened up to 9L and NIMV. He was transferred to the ICU due to respiratory needs Hospital course: 11/15: right sided TECAR 11/16: NSTEMI 11/17: Transferred to ICU for increasing respiratory needs 24hr interval history: Went for [facility], no interventions done. Stroke code called in the morning for new onset of confusion, blurred vision, and increased L sided weakness Plan for 11/21/2023: - discontinue heparin gtt per PVS - continue DAPT - Diurese with Lasix today, CXR with improved edema after diuresis yesterday - wean HHFNC for oxygen sat >90% - PT/OT - advance diet for clears - stroke code for increased L sided weakness, blurred vision, confusion - CT head - CT angio brain/neck - CT angio AP SYSTEM BASED PLAN . Neurological: Acute Post-Operative Pain -- DVPRS: Rest: 0- no pain (11/20 1200) DVPRS: Activity: 0- no pain (11/20 1200) - PRN oxy and tylenol - reports pain is controlled on current regimen Agitation/Delirium- Overall CAM-ICU: Negative - Delirium precautions - Day/night sleep cycle, sleep hygiene Stroke-like symptoms - LKW 0800 11/20, developed increased L sided weakness, blurred vision, and confusion while working with PT. Stroke code called - concern that hematoma could be causing compression leading to stroke-like symptoms, however cannot rule out a thromboembolic event - STAT CTH, CT angio brain/neck, and CT angio AP ordered Depression - Continue home Cymbalta Prior CVA (2008, 2011 with L side decrease sensation) - Underwent TECAR on 11/14 - Plan to continue home ASA and Plavix Cardiovascular: Right carotid endarterectomy s/p TECAR on 11/14 - Continue DAPT. Plan to discharge on DAPT and DOAC for 1 month. Stop Plavix after 30 days and continue Eliquis and ASA - Continue statin - Stop heparin gtt today Hypertension- - SBP goal <140 - Home medications: coreg 6.25 and Amlodipine - Continue Coreg 12.5mg PO BID and Amlo 5 every day CAD s/p CABG 2007 and PCI in 2014 - Continue ASA, statin, and Coreg NSTEMI - ECG with ST elevation in aVR and inferolateral ST depresssion on 11/16 - Troponin peaked at 3685, discontinued trend - Continue DAPT - Echo on 11/17 with normal function and no wall motion abnormalities - 11/19 heart cath: occlusion to ambler RCA, grafts from previous bypass patent. Significantly elevated LVEDP @ 40 PAF - Continue coreg - [id number] at 6 - Cardiology recommending DAPT and DOAC for 30 days once appropriate Pulmonary: Acute Post-Operative Respiratory Failure (5+ L) with hypoxia - Maintain O2 Sat > 90% with oxygen as needed - Wean supplemental oxygen/support as able. - Incentive Spirometry while awake - Plan: Pulmonary toilet/diuresis Renal: Normal kidney function - Baseline Creatinine: 0.92 - Baseline GFR: > 60 - Urine output: good - Monitor chemistries Gastrointestinal: Acute Post Operative Constipation - Last Bowel Movement: 11/19/23. - Bowel regimen in place with scheduled miralax and senna. - PRN dulcolax suppository. Current Diet Orders Procedures DIET CLEAR LIQUID Carb Controlled Standing Status: Standing Number of Occurrences: 1 Order Specific Question: Additional Modifier: Answer: Carb Controlled Normal: Body mass index is 23.02 kg/m . Integumentary/Musculoskeletal Active Incisions Wounds - Wound Abrasion 11/13/23 0215 Right Back (8) Wound Surgical 11/16/23 1241 Right Carotid (5) Wound Sheath Site 11/16/23 1305 Anterior;Left Femoral (5) Wound Sheath Site 11/20/23 2131 Anterior;Right Greater Trochanter (1) Endocrinology Post-Operative Stress Induced Hyperglycemia - - SSI + 20 units glargine - endocrinology following for insulin management - HgbA1c= 11/13/2023: Hemoglobin A1C HPLC 7.8 Hematology Post-operative Acute Blood Loss Anemia - No concern for ongoing blood loss - CTM daily H/H, no indication for transfusion at this time Infectious Disease No issues at this time Complexity ICU Liberation Checklist: ABCDEF Bundle Reviewed: [x] Yes [] No Breathing: SBT: [] Passed [] Failed [] Does not meet criteria [x] N/A SAT: [] Yes [] No [x] N/A Vascular Access/Line/Tubes/Drains: Lines to be removed: none List lines, tubes, drains and insertion date: - PIVs Assessed insertion site: [x] Yes [] No Choice of Analgesia/Sedation: Pain: [x] Controlled [] Uncontrolled Continuous Infusions: [] Sedation [] Analgesia [] NMB [x] None Delirium: Overall CAM-ICU: Negative CAM: [] Positive [x] Negative [] Unable to assess Restraints: [x] None [] Soft limb [] Milady mitts [] Other Prophylaxis Bundle: HOB: 30 degrees Stress ulcer ppx: [] Yes [] Therapeutic [] Home regimen [x] No, not indicated Chemical DVT ppx: [x] Yes [] No, SCDs ordered Therapy Services: ENTRY LEVEL MARKETING ASSISTANT: [] Swallow [] Cognitive Eval [] Speaking Valve [x] N/A Early Mobility: PT/OT consulted: [x]Yes [] No, d/t clinical status [] No, pt is independent Current Mobility Status: Ambulate OBJECTIVE VITALS: Blood pressure (P) 93/55, pulse 66, temperature 97.7 F (36.5 C), temperature source Axillary, resp.rate 12, height 1.676 m (5' 6), weight 64.7 kg (142 lb 10.2 oz), SpO2 94%. 0800 PHYSICAL EXAM: GENERAL: Alert, oriented x 3, No acute distress HEENT: PEERL, EOMI, MMM HEART: RRR, +S1+S2, No murmurs LUNG: Non-Labored, no wheezing ABD: Soft, Non-Distended, Non-Tender EXT: Warm, no cyanosis, no edema in bilateral lower extremities. PULSE: Palpable Bilateral DP Pulses MUSC: Moves all 4 Extremities NEURO: Grossly intact, no acute deficits appreciated PSYCH: Appropriate for the clinical situation 1045 updated exam: Pt placed in chair by PT/OT, leaning to the left. Weakness noted to the LUE and LLE. Pt unable to recall the name of a toothbrush. Reporting blurred vision EUSEBIO Ferreira Cardiovascular ICU/ Cardiac Surgery 11/21/23 1:19 PM * Paris Gonzalez MD - 11/20/2023 5:07 PM EDT Seen and examined on pm rounds. Still awaiting LHC. He is on triple therapy. I am told the neck hematoma is unchanged from post-op. * Yulia Crook - 11/20/2023 2:24 PM EDT Images from the original note were not included. Pt remains on 4 in ICU status. Pt suffered NSTEMI on Thursday 11/16, plan for LHC today. Pt on bipap with hep gtt. Will need input from therapy to determine safe dc dispo. CM will follow for further needs. Yulia Morataya, SUPERVISOR OF COMMUNICATIONS, DIALYSIS CHIEF EQUIPMENT TECHNICIAN, CCM Clinical Wire Straightening Machine Operator [phone] * GITA Hamilton - 11/20/2023 12:48 PM EDT CVICU DAILY PROGRESS NOTE. HISTORY OF PRESENT ILLNESS: Mr. Vega is a 68 y.o. male who has a pertinent past medical history including CAD s/p CABG 2007 and subsequent PCI 2014, prior CVAs, pAF, HTN, HLD, DM, prior R CEA who underwent R TCAR on 11/15 given prior CEA. Patient started to have chest discomfort evening of 11/16 and increased WOB. EKG showedelevation in aVR and inferior and anterolateral depression. Over the course of the day, respiratorystatus worsened up to 9L and NIMV. He was transferred to the ICU due to respiratory needs Hospital course: 11/15: right sided TECAR 11/16: NSTEMI 11/17: Transferred to ICU for increasing respiratory needs Plan for 11/20/2023: - Cardiology following, possible heart cath today - Cards working with neurovasc to determine eligibility for Plavix load - Continue heparin gtt - Diurese with Lasix today - Advance diet later today - BGL elevated, endocrinology following SYSTEM BASED PLAN . Neurological: Acute Post-Operative Pain -- DVPRS: Rest: 2- mild pain (11/19 940) DVPRS: Activity: 0- no pain (11/19 940) PRN oxy and tylenol. Agitation/Delirium- Overall CAM-ICU: Negative Delirium precautions Day/night sleep cycle, sleep hygiene Depression Continue home Cymbalta Prior CVA (2008, 2011 with L side decrease sensation) - Underwent TECAR on 11/14 - Plan to continue home ASA, Plavix and heparin gtt Cardiovascular: Right carotid endarterectomy s/p TECAR on 11/14 - Continue DAPT and heparin gtt. Plan to discharge on DAPT and DOAC for 1 month. Stop Plavix after 30 days and continue Eliquis and ASA - Continue statin Hypertension- SBP goal <140 Home medications: coreg 6.25 and Amlodipine Continue Coreg 12.5mg PO BID and Amlo 5 every day CAD s/p CABG 2007 and PCI in 2014 - Continue ASA, statin, and Coreg NSTEMI - ECG with ST elevation in aVR and inferolateral ST depresssion on 11/16 - Troponin peaked at 3685 and are down trending - Continue DAPT and heparin gtt - Echo on 11/17 with normal function and no wall motion abnormalities - Possible heart cath today PAF - Continue coreg - [id number] at 6 - Cardiology recommending DAPT and DOAC for 30 days once appropriate Pulmonary: Acute Post-Operative Respiratory Failure (5+ L) with hypoxia Maintain O2 Sat > 90% with oxygen as needed Wean supplemental oxygen/support as able. Incentive Spirometry while awake Plan: Pulmonary toilet/diuresis Renal: Normal kidney function Baseline Creatinine: 0.92 Baseline GFR: > 60 Urine output: good Monitor chemistries Gastrointestinal: Acute Post Operative Constipation - Last Bowel Movement: 11/19/23. Bowel regimen in place with scheduled miralax and senna. PRN dulcolax suppository. Current Diet Orders Procedures DIET NPO WITHOUT meds Standing Status: Standing Number of Occurrences: 1 Order Specific Question: NPO Meds: Answer: WITHOUT meds Normal: Body mass index is 25.55 kg/m . Integumentary/Musculoskeletal Active Incisions Wounds - Wound Abrasion 11/13/23 0215 Right Back (7) Wound Surgical 11/16/23 1241 Right Carotid (4) Wound Sheath Site 11/16/23 1305 Anterior;Left Femoral (4) Endocrinology Post-Operative Stress Induced Hyperglycemia - SSI Consult endocrinology for insulin management HgbA1c= 11/13/2023: Hemoglobin A1C HPLC 7.8 Hematology Post-operative Acute Blood Loss Anemia No concern for ongoing blood loss CTM daily H/H, no indication for transfusion at this time Infectious Disease No issues at this time Complexity Hypocalcemia - Continue to monitor and replete. ICU Liberation Checklist: ABCDEF Bundle Reviewed: [x] Yes [] No Breathing: SBT: [] Passed [] Failed [] Does not meet criteria [x] N/A SAT: [] Yes [] No [x] N/A Vascular Access/Line/Tubes/Drains: Lines to be removed: none List lines, tubes, drains and insertion date: - PIVs Assessed insertion site: [x] Yes [] No Choice of Analgesia/Sedation: Pain: [x] Controlled [] Uncontrolled Continuous Infusions: [] Sedation [] Analgesia [] NMB [x] None Delirium: Overall CAM-ICU: Negative CAM: [] Positive [x] Negative [] Unable to assess Restraints: [x] None [] Soft limb [] Hartley mitts [] Other Prophylaxis Bundle: HOB: 30 degrees Stress ulcer ppx: [] Yes [] Therapeutic [] Home regimen [x] No, not indicated Chemical DVT ppx: [x] Yes [] No, SCDs ordered Therapy Services: ENTRY LEVEL MARKETING ASSISTANT: [] Swallow [] Cognitive Eval [] Speaking Valve [x] N/A Early Mobility: PT/OT consulted: [x]Yes [] No, d/t clinical status [] No, pt is independent Current Mobility Status: Ambulate OBJECTIVE VITALS: Blood pressure 119/56, pulse 74, temperature 98.7 F (37.1 C), temperature source Oral, resp. rate (!) 25, height 1.676 m (5' 6), weight 71.8 kg (158 lb 4.6 oz), SpO2 92%. PHYSICAL EXAM: GENERAL: Alert, oriented x 3, No acute distress HEENT: PEERL, EOMI, MMM HEART: RRR, +S1+S2, No murmurs LUNG: Non-Labored, no wheezing ABD: Soft, Non-Distended, Non-Tender EXT: Warm, no cyanosis, no edema in bilateral lower extremities. PULSE: Palpable Bilateral DP Pulses MUSC: Moves all 4 Extremities NEURO: Grossly intact, no acute deficits appreciated PSYCH: Appropriate for the clinical situation GITA Hamilton Cardiovascular ICU/ Cardiac Surgery 11/20/23 12:48 PM * Dorothy Cary, BALTAZAR-CLOUD DEVELOPER - 11/20/2023 10:08 AM EDT [facility] Inpatient Diabetes Consults - Progress Note- TEAM 2 Impression: Uncontrolled Type 2 Diabetes Mellitus (T2DM) admitted with Right carotid stenosis, Punctuate R frontal and R occipital stroke s/p TCAR on 11/16/2023 DM microvascular complications: retinopathy and peripheral neuropathy A1c on admission: 7.8% Risk: .None Plan 1. Hospital Plan: Glucoses remain elevated while NPO Will switch to glargine and increase dose this evening If diet is advanced, please discontinue regular insulin and order lispro 1 unit per 8 grams of carbs and 1 unit per 25 mg/dl > 150 mg/dl ACHS Basal: Insulin NPH: 6 units twice daily -> change to glargine 20 units QHS Prandial: Insulin lispro: None Correction: Insulin Regular: 2 unit(s) per every 50 mg/dL above 150 mg/dL q6 hours 2. Discharge Plan: Please contact our team on day of discharge for definitive recs. QGENDA :TEAM 2 Tentative discharge plan: (Please use the Diabetes Discharge Order Set: Diabetes Orders - for those patients discharged on INSULIN) - If orals or non-insulin injectables recommended, will need to order them outside of the Diabetes Orderset. - Discharge Diet: DIET CARB CONTROLLED- 60 Grams per Meal - Patient Education: Your target blood sugar is 80-130 mg/dl fasting and under 180 mg/dl nonfasting. - Basal/Mealtime - Basal: U100 Glargine PENS with needles, dose TBD. (Or insurance covered equivalent.) Titration: TBD - Mealtime time insulin: FixedvsFlexible: Fixed: U100 Lispro Pens with Pen [place] MAX DAILY DOSE TBD TBD Units for Large Meal or TBD Units for Small Meal PLUS Correction Scale Subcutaneous every meal and at bedtime Correction Scale: (Copy and paste into Note to Pharmacy) 151-200 = 2 units 201-250 = 4 units 251-300 = 6 units 301-350 = 8 units 351-400 = 10 units -Diabetes Supplies: - Glucose monitoring supplies for ACHS: Glucose test strips: dispense 150 with 1 refill - Patient prefers any brand or substitute brand covered by insurance, Lancets: dispense 150 with 1 refill, and alcohol swabs: dispense 200 with 1 refill - The patient will need script for new glucometer: no: Patient prefers any brand or substitute brand covered by insurance -Continuous Glucose Monitoring Devices: - NA -Other Diabetes Supplies: - Glucagon (Baqsimi Two Pack) 3 MG/DOSE Powder 3. Follow up needed: PCP within 1- 2 weeks 1-2 weeks in [facility] at [facility] (12th floor). To schedule this appt call the [facility] at [phone] Option #3. 4. Education: Discussed plan for the day. 5. Will review glucoses and discuss with Dr Harris as needed Thank you for allowing us to participate in your patient's care. For provider collection correspondent: MAXIMINO : TEAM 2 CC: hyperglycemia History of Present Illness: Yony Vega is a 68 y.o. year old male who is seen at the bedside. Patient is NPO for a heart cath later today. He reports that he is hungry. Creatinine is normal. Current Diet Orders Procedures DIET NPO WITHOUT meds Standing Status: Standing Number of Occurrences: 1 Order Specific Question: NPO Meds: Answer: WITHOUT meds Current Regimen: Basal: Insulin NPH: 6 units twice daily Prandial: Insulin lispro: None Correction: Insulin Regular: 2 unit(s) per every 50 mg/dL above 150 mg/dL q6 hours Daily Glucose Review: Date Daily glucose review TDD Basal Prandial/ Correction 11/19/2023 304, 363, 250, 273, 250, 32 12 20 11/20/2023 214, 186, 211, 220 Review of Systems Diabetes: Negative for symptoms of hypoglycemia Respiratory: Negative for shortness of breath Gastrointestinal: Negative for abdominal pain or nausea All other systems negative. Physical Exam Constitutional: Well-developed, well-nourished, overweight male in no acute distress. Pulmonary/Chest: Respirations even and unlabored Musculoskeletal: No acute abnormalities noted Neurological: Alert and interactive Psych: Cooperative Temp: [97.7 F (36.5 C)-98.4 F (36.9 C)] 98.4 F (36.9 C) Pulse (Heart Rate): [62-82] 67 Resp Rate: [13-39] 19 BP: (101-151)/(52-74) 115/58 O2 Sat (%): [88 %-100 %] 95 % Weight: [71.8 kg (158 lb 4.6 oz)] 71.8 kg (158 lb 4.6 oz)Admission/Adult (Dosing) Weight: 65.3 kg (144 lb) Most recent entered Weight: 71.8 kg (158 lb 4.6 oz) Body mass index is 25.55 kg/m . Background History Yony Vega is a 68 y.o. year old male with Type 2 Diabetes Mellitus (T2DM) diagnosed in 2019 who is seen in consultation at the request of Boom Ford MD for assistance with evaluation of hyperglycemia and to make treatment recommendations. He was interviewed at his bedside in [place]. Per review of his chart and discussion with patient he has a significant history of type 2 diabetes, CAD s/p CABG in 2007 ([facility]) and stent in 2014, previous CVA c/g L-sided numbness 2/2 RCIA internal carotid artery s/p CEA ~2011, colorectal cancer s/p APR w/ LPLND (2019), and reported PAD s/p R pop,R anterior tibial angioplasties (2014) and L anterior tibial, L peroneal, and L popliteal angioplasties (2015) who presents to [facility] with L facial numbness, word slurring, and balance issues. Stroke code was called, and patient underwent carotid ultrasound showing 70-99% stenosis R JUSTUS. He was admitted with Right carotid stenosis, Punctuate R frontal and R occipital stroke and is s/p TCAR on 11/16/19 24 In regard to his history of diabetes he is taking basal bolus insulin with dosing as below. He injects in his abdomen. He notes hard spots at his injection sites at times (they last for less than 24 hours). He uses a glucose meter to monitor his blood sugar. Diabetes History: Type of Diabetes: Type 2 Diabetes Mellitus (T2DM) Diagnosis (aprox date): 2018 Outpatient Clinic: PCP Home regimen: Basal: Glargine 50 units twice daily Prandial: Lispro per a corrective scale Diabetes Complications: retinopathy and peripheral neuropathy Date of most recent dilated eye exam: was due for an appointment this admission Tobacco/Nicotine: He reports that he has never smoked. He has never used smokeless tobacco. Home blood glucoses: glucose meter: He is checking his blood sugars about 3-4 times per day Reports ranging from the 100s to 200 range typically Recent A1c: Lab Results Component Value Date HGBA1C 7.8 (H) 11/13/2023 Lab Results Component Value Date CHOLESTEROL 150 11/13/2023 TRIG 279 (H) 11/13/2023 HDL 29 (L) 11/13/2023 LDLCALC 65 11/13/2023 Lab Results Component Value Date SODIUM 137 11/20/2023 POTASSIUM 3.5 11/20/2023 CHLORIDE 98 11/20/2023 CO2 30 11/20/2023 BUN 23 11/20/2023 CREATSERUM 0.93 11/20/2023 GLUCOSE 211 (H) 11/20/2023 No results found for: CREATURINE, MICROALBUMIN, MICALBCREAT Lab Results Component Value Date ALT 18 11/13/2023 No results found for: PREALBUMIN Cardiac echo: EF = Results for orders placed during the hospital encounter of 11/12/23 ECHOCARDIOGRAM LIMITED/FOLLOWUP 11/18/2023 (Final) Interpretation Summary Limited study. The left ventricular chamber size and systolic function are normal. LVEF 55-60%. Normal LV wall motion. Grade II diastolic dysfunction. The right ventricular chamber size and systolic function are normal. Estimated RVSP 44 mmHg. * Kristan Ernst MD - 11/20/2023 9:45 AM EDT VASCULAR SURGERY PROGRESS NOTE HPI: Yony Vega is a 68 y.o. male who presented with symptomatic right carotid stenosis. Plan for right TCAR given previous R CEA Subjective: Troponin downtrended to 2243. He remains on CPAP this AM. Neck appears improved howeverthere are some skin changes. Objective: Vital Signs: Temp: [97.7 F (36.5 C)-98.4 F (36.9 C)] 98.4 F (36.9 C) Pulse (Heart Rate): [62-82] 79 Resp Rate: [13-39] 39 BP: (101-151)/(52-74) 137/63 O2 Sat (%): [88 %-100 %] 98 % Weight: [71.8 kg (158 lb 4.6 oz)] 71.8 kg (158 lb 4.6 oz) Fluid Management: I/O last 3 completed shifts: In: 485.8 [I.V.:198; IV Piggyback:287.9] Out: 1730 [Urine:1730] Wt Readings from Last 3 Encounters: 11/20/23 71.8 kg (158 lb 4.6 oz) 08/29/23 67.4 kg (148 lb 11.2 oz) 07/19/23 67.1 kg (148 lb) Physical Exam: Gen: NAD, resting comfortably Neuro: CN II-XII grossly intact, no focal signs. Baseline LUE weakness Cardiac: RRR Lungs: On Bipap Abd: soft, NT, ND Incision: right neck incision soft with small stable hematoma. Surrounding skin ecchymotic and macerated. Left groin soft without hematoma Extremities: pink, warm, no new ulcers/wounds, no edema, 5+ motor, sensation intact in BLE Pulses: Bilateral DP/PT palpable Labs: WBC/Hgb/Hct/Plts: 8.15/9.4/29.6/195 (11/19 1) Na/K+/Phos/Mg/Ca: 137/3.5/3.2/1.6/8.0 (11/19 1) Bun/Creat/Cl/CO2/Glucose: 23/0.93/98/30/211 (11/19 1-11/19 905) Ptt/Pt/Inr: 88.2/--/-- (11/19 824) Imaging: Assessment & Plan: Yony Vega is a 68 y.o. male who presented with symptomatic right carotid stenosis. Found to have Punctuate R frontal and R occipital stroke . Now on 4 Days Post-Op s/p Procedure(s) (LRB): PLACEMENT INTRAVASCULAR STENT CERVICAL CAROTID ARTERY OPEN (Right) on 11/16/[address] Ford. Continue NPO LHC today, appreciate Interventional Cards assistance Lasix today Follow-up venous duplex Continue hep gtt Diet: Low Carb Activity: Advance as tolerated DVT ppx: SCDs Bowel Regimen: Miralax and senna daily, PRN suppository Complexity. Hypocalcemia - Continue to monitor and replete. Any conditions listed below are present on admission unless otherwise specified. . Right carotid stenosis Punctuate R frontal and R occipital stroke - S/p right TCAR - Continue 81 mg ASA and 75 mg Plavix daily Will also need anticoagulation for new afib. Eliquis check--> $0 - Patient will discharged on triple therapy for 1 month. Will stop PLAVIX after 30 days. Then Eliquis and ASA ongoing. - Continue crestor - Goal SBP 100-140 mmHg, PRNs available - Continue frequent neuro and vascular checks - PT/OT--> previously recommended SNF. Will re-evaluate post-op - Neurovasc signed off 11/16--> Cont Statin and aspirin. Follow-up with neurovasc in 1-2 weeks (ordered) Acute pain -Pain control: Scheduled tylenol PRN: oxycodone Acute blood loss anemia - Daily CBC, transfuse if less than 7 or symptomatic HLD (POA) - Continue 40mg crestor Lab Results Component Value Date CHOLESTEROL 150 11/13/2023 TRIG 279 (H) 11/13/2023 HDL 29 (L) 11/13/2023 LDLCALC 65 11/13/2023 HTN (POA) - SBP 100-140 - Cont home coreg andnorvasc Mood disorder, POA - Continue home duloxetine 60 mg DM, POA - Takes insulin lispro at home - Continue SSI here - Carb controlled diet GERD, POA - Takes omeprazole at home - Continue Protonix here CAD/CABG (2007, Stent placed in 2014, Bypass in 2007) - ASA and statin as above Paroxymal Atrial Fibrillation - Coreg as above - [id number] at 6 - Eliquis as above - Cardiology follow-up in 4-6 weeks. 30 day tele monitor at discharge The patient continues to require the followings lines, tubes and drains: PIVs These are required for the following reasons: Continuation of inpatient Care PLAN - Cont DAPT - Carb controlled diet - May check DOAC. Eliquis $0/month - PT/OT for dispo planning Dispo: Continue ICU care. Dispo pending . Therapy recommending SNF. Kristan Ernst MD 11/20/2023 * Taryn Cardona MD - 11/20/2023 9:44 AM EDT CVICU Attending Critical Care NoteASSESSMENT AND PLAN ASSESSMENT AND PLAN Yony Vega is a 68 y.o. patient s/p R TCAR by Boom Ford MD on surgery date 11/16/2023. ICU Summary: 11/15:TCAR with sedation 11/17 - admit from floor w troponin leak and respiratory insufficiency Important points to emphasize in the critical care management are: Acute post-op respiratory insufficiency: - Continue with HHFNC - Wean FiO2 - OOBTC, PT/OT, IS as able. NSTEMI: - Plan for LHC - Trop downtrending, no chest pain currently. - Continue DAPT, heparin gtt. - Add NTG with recurrence. Carotid stenosis: - POD #3 TCAR - ASA, clopidogrel, statin. - Serial exams. -Prior CVAs Type 2 DM -Endo following RELEVANT INFORMATION VITALS: Blood pressure 137/63, pulse 79, temperature 98.4 F (36.9 C), temperature source Axillary, resp. rate (!) 39, height 1.676 m (5' 6), weight 71.8 kg (158 lb 4.6 oz), SpO2 98%. Documentation of LDA necessity Line necessity: N/A Mack[place] necessity: N/A Airway necessity: N/A I spent 31 minutes providing critical care services and making complex medical decisions for this critically ill patient on behalf of Boom Ford MD. This time includes examining the patients, reviewing patient data, discussions with other providers and speaking to family members. This time does not include performing any procedures. I have discussed this patient with the ADRIÁN and agree with their assessment, plan and decision making or have made amendments where appropriate. Documentation of Comorbid Conditions Complexity. Hypocalcemia - Continue to monitor and replete. Any conditions listed below are present on admission unless otherwise specified. .Peripheral Vascular Disease - carotid stensois s/p prior CEA, TCAR Ischemic CVA, Location: by ASHLIE Willingham MD 11/20/2023 9:44 AM * Shekhar Escamilla, PT - 11/20/2023 8:27 AM EDT Acute Physical Therapy Treatment Prior to Admission AMPA score(s): PRIOR LEVEL AM-PAC Mobility Raw Score: 24 PRIOR LEVEL AM-PAC Activity Raw Score: 24 Current AM-PAC score(s): CURRENT AM-PAC Mobility Raw Score: 10 Based on the above AM-PAC score(s) and PT clinical judgment, patient is a good candidate for discharge to Long-Term Facility Barriers to discharge home: Patient needs assistance with functional mobility Mobility equipment available at home: 2 wheeled walker, rollator ADL equipment available at home: shower chair, grab bars, hand held shower hose, elevated toilet seat Equipment needed for discharge: to be determined Current therapy frequency recommendation in acute: Therapy Frequency: 5 times a week Precautions and Weightbearing Status: Existing Precautions/Restrictions: cardiac, fall, supplemental oxygen (TCAR Precautions) Telemetry, Central line Patient Safety Communication Prior to Visit: Nursing (RASHI Garner and RASHI Corrigan. Light activity this date.) Subjective: Pt agreeable to session reporting he feels fine Pain: General Pain Documentation (Adult, OB, Peds) Presence of Pain: denies pain/discomfort Presence of Pain Score (Auto-calculated): 0 Objective/Observation: Vitals/Vitals Responses to Treatment: Stable with session. Blood pressure: 108/58 HR 82, pulse ox 95%. RN aware of all. O2 Device: CPAP Cognition Overall Cognitive Status: Within Functional Limits Extremity Assessments: See PT Evaluation flowsheet for Extremity Measurement updates. Skin and Edema: Balance: Sitting Balance Static Sitting-Level of Assistance: Minimum assistance Dynamic Sitting-Level of Assistance: Minimum assistance Skilled Rationale: Positioning, Sequencing, Verbal cues, Tactile cues, Energy conservation, Breathing strategies Sitting Balance Skilled Intervention/Details: Pt completed 7-8 minutes of seated balance working onbringing his weight forward to his feet, maintaining his midline, and maintaining his forward posture as pt leans backward when not engaged to lean forward. Standing Balance Static Standing-Level of Assistance: Minimum assistance, 2-person assist Dynamic Standing-Level of Assistance: Minimum assistance, 2-person assist Skilled Rationale: Positioning, Sequencing, Verbal cues, Tactile cues, Energy conservation, Breathing strategies Standing Balance Skilled Intervention/Details: Pt completed 2 bouts of 30 seconds of standing balance working on midline trunk control, self positioning for transfer to the chair, and finding his midline with weight shfting for bed to chair transfer, Mobility Assessment/Intervention: Supine to Sit Mobility [place] Level: Supine->Sit: moderate assist (50% patient effort) Physical Assist: Supine->Sit: 2 person assist Skilled Rationale: Positioning, Sequencing, Verbal cues, Tactile cues, Energy conservation, Breathing strategies Transfer Assessment/Intervention: Sit to Stand Transfer [place] Level: Sit->Stand: minimum assist (75% patient effort) Physical Assist: Sit->Stand: 2 person assist Skilled Rationale: Positioning, Sequencing, Verbal cues, Tactile cues Stand to Sit Transfer [place] Level: Stand->Sit: minimum assist (75% patient effort) Physical Assist: Stand->Sit: 2 person assist Bed-Chair Transfer [place] Level: Bed<->Chair: minimum assist (75% patient effort) Physical Assist: Bed<->Chair: 2 person assist Skilled Rationale: Positioning, Sequencing, Verbal cues, Tactile cues, Energy conservation, Breathing strategies Gait/Functional Mobility Assessment/Intervention: Stairs Assessment/Intervention: Outcome Score(s): CURRENT [facility] Basic Mobility Inpatient Short Form Turning over in bed: 2 - A Lot of Assistance Moving from lying on back to sittin - Total Assistance Moving to and from bed to chair: 2 - A Lot of Assistance Sitting/standing from chair: 2 - A Lot of Assistance Walk in hospital room: 2 - A Lot of Assistance Climbing 3-5 steps with a railin - Total Assistance CURRENT [facility] Mobility Raw Score: 10 CURRENT [facility] Mobility Functional Limitation: 76.75% Impaired in Basic Mobility Interventions: Assessment & Plan: Pt making some progress this date but limited to light activity in the room only at this time. Focus to remain upright mobility to his tolerance as appropriate. Patient Instruction/Education this session: Plan for next session: Transfers Acute PT Goals Plan of Care by Shekhar Escamilla PT at 11/20/2023 11:53 AM Version 1 of 1 Problem: PT - General Goals Goal: Supine <-> Sit Transfers - Patient will perform supine to/from sit transfers with standby assistance and without use of hospital bed features in order to improve functional mobility and safety. Outcome: Progressing Goal: Sit <-> Stand Transfers - Patient will perform sit to/from stand transfers with standbyassistance and wheeled walker in order to improve functional mobility and safety. Outcome: Progressing Goal: Ambulation - Patient will ambulate 150 feet with standby assistance and wheeled walker to improve ability to safely navigate home and community. Outcome: Progressing PT treatment consisted of the following to progress towards the above goal(s): PT Evaluation and Treatment Time Therapeutic Activity Time Entry: 24 Treating Therapist: Shekhar Escamilla PT Additional Details: PT Co-Eval/Treatment Information Co-evaluation/co-treatment performed?: Yes, simultaneous billable skilled care was necessary due tomedical complexity and functional deficits Other discipline: OT Rationale for need to co-eval/treat: postural control Co-treatment goal focus: balance, mobility, transfer, endurance, strength Assisted by during session: RN and OT PPE used during patient interaction: facemask, gloves Patient location at end of session: chair Alarms on at end of session: none (Per RN) Needs in reach. Time In: 802 Time Out: 826 Total Visit Time: 24 minutes Total Treatment Time (skilled, billable minutes): 24 minutes Upon discontinuation of Acute Care Physical Therapy Services or patient discharge from the hospitalthis note represents the current Physical Therapy Discharge Summary. * Donna Bailey APRN-CLOUD DEVELOPER - 11/20/2023 8:13 AM EDT CARDIOLOGY CONSULT PROGRESS NOTE Cardiology consult 11/18/23 for chest pain HPI I saw Mr. Yony Vega in follow-up on 11/20/2023. He is a 68 y.o. male with a history of 68 y.o.male with a history of SANTANA s/p right TCAR, AF, CAD s/p CABG admitted on 11/12/2023 with left sided numbness. Hospital course c/b new onset chest pain. ASSESSMENT AND PLAN Chest pain: developed chest pain on 11/16 ( had a right TCAR 11/16/23): hs troponin peaked at 3685 with downward trend;12 lead ECG showed SR with ST depression in inferolateral leads, JONAS in aVR. Subsequent ECG with near resolution from previous ECG. - Nuclear stress test on 11/13 reported no evidence of infarction with no definite evidence for stress induced ischemia. EF 43% - TTE on 11/17 reported normal LV size & function with EF 55-60% with normal wall motion, grade II DD, normal RV, RVSP 44 mm Hg - Denies chest pain today but had jaw pain earlier today 11/20/23 - S/P IV heparin x 48 hours post troponin peak ( continues on drip for pAF) - Continue ASA 81 mg daily, Clopidogrel 75 mg daily, coreg 12.5 mg BID, Rosuvastatin 40 mg daily - Plan for a coronary angiography today- NPO for procedure - Reviewed procedure with patient, answered questions - Follow up with OP cardiology in 4-6 weeks CAD, /p CABG 2007, s/p PCI with stent 2014 - Denies chest pain - Nuclear stress test 11/14/2023 was negative for ischemia or infarction - TTE on 11/17 reported normal LV size & function with EF 55-60% with normal wall motion, grade II DD, normal RV, RVSP 44 mm Hg - Continue ASA, coreg 12.5 mg BID, Rosuvastatin PAF - Remains in SR on telemetry. Continue coreg 12.5 mg every 12 hours - [id number] score of 6- continue IV heparin for a/c - Mobile renal dietitian at discharge to assess AF burden - Follow up with OP cardiology in 4-6 weeks HTN - Stable. Continue coreg 12.5 mg BID, amlodipine 5 mg daily HLD lipid profile 11/13/23: TC 150, HDL 29, TG 279, LDL 65 - Continue Rosuvastatin 40 mg daily H/o CVA Right carotid stenosis- s/p right TCAR INTERVAL HISTORY/REVIEW OF SYSTEMS Over the last day, he had no acute events. He is on CPAP. He is NPO for a coronary Angiography today. He admitted to jaw pain earlier today. He denies chest pain or back pain. Review of Systems Constitutional: Positive for malaise/fatigue. Eyes: Negative for visual disturbance. Cardiovascular: Negative for chest pain, leg swelling, orthopnea and palpitations. + jaw pain Respiratory: Positive for shortness of breath (on CPAP). Negative for wheezing. Musculoskeletal: Negative for back pain and muscle cramps. Gastrointestinal: Positive for nausea. Negative for bloating, abdominal pain and vomiting. Neurological: Negative for dizziness and headaches. PHYSICAL EXAM BP 143/67 Pulse 80 Temp 97.9 F (36.6 C) (Axillary) Resp 17 Ht 1.676 m (5' 6) Wt 71.8 kg (158 lb 4.6 oz) SpO2 99% BMI 25.55 kg/m Smoking Status Never Constitutional: Awake, cooperative male, on CPAP in no acute distress. Chest: Respiratory effort unlabored, lung sounds clear anteriorly, on CPAP Cardiovascular: No JVD appreciated. Normal rate & regular rhythm; S1 normal, S2 normal, no gallop, no friction rub or murmur heard. Abdomen: Soft, non-tender, non-distended. +BS. Extremities: No peripheral edema. No stasis dermatitis. Radial pulses 2+ bilaterally, dorsalis pedis pulses are 2+ bilaterally Neurological: Alert and oriented to person, place and time. Skin: Warm, dry. No cyanosis. Nails show no clubbing. CARDIOVASCULAR IMAGING/DATA Results for orders placed during the hospital encounter of 11/12/23 ECHOCARDIOGRAM LIMITED/FOLLOWUP 11/18/2023 (Final) Interpretation Summary Limited study. The left ventricular chamber size and systolic function are normal. LVEF 55-60%. Normal LV wall motion. Grade II diastolic dysfunction. The right ventricular chamber size and systolic function are normal. Estimated RVSP 44 mmHg. 24 hour telemetry (personally reviewed): SR ADDITIONAL DATA REVIEWED Intake/Output Summary (Last 24 hours) at 11/20/2023 0653 Last data filed at 11/20/2023 0600 Gross per 24 hour Intake 485.84 ml Output 1730 ml Net -1244.16 ml Temp: [97.7 F (36.5 C)-98.3 F (36.8 C)] 97.9 F (36.6 C) Pulse (Heart Rate): [62-80] 80 Resp Rate: [13-35] 17 BP: (101-152)/(52-74) 143/67 O2 Sat (%): [88 %-100 %] 99 % Weight: [71.8 kg (158 lb 4.6 oz)] 71.8 kg (158 lb 4.6 oz) Oxygen Therapy O2 Sat (%): 99 % O2 Device: CPAP Flow (L/min): 12 Oxygen Concentration (%): 60 Body mass index is 25.55 kg/m . LABS Bun/Creat/Cl/CO2/Glucose: 23/0.93/98/30/186 (11/19 1-11/19 509) Na/K+/Phos/Mg/Ca: 137/3.5/3.2/1.6/8.0 (11/19 1) WBC/Hgb/Hct/Plts: 8.15/9.4/29.6/195 (11/19 1) BNP (pg/mL) Date Value 11/18/2023 259 (H) Lab Results Component Value Date CHOLESTEROL 150 11/13/2023 TRIG 279 (H) 11/13/2023 HDL 29 (L) 11/13/2023 LDLCALC 65 11/13/2023 CURRENT MEDICATIONS: amLODIPine 5 mg Oral Daily aspirin 81 mg Oral Daily balsam-castor oil 1 Application Topical Q8H carveDILOL 12.5 mg Oral Q12H Clopidogrel 75 mg Oral Daily DULoxetine 60 mg Oral QHS Gabapentin 300 mg Oral QHS insulin NPH 6 Units Subcutaneous BID Insulin regular Subcutaneous Q6H Pantoprazole 40 mg Oral Daily Polyethylene glycol 17 g Oral Daily Rosuvastatin 40 mg Oral Daily heparin 15 Units/kg/hr (11/20/23 0600) Plan made in collaboration with Dr. Dorothy Kendall, cardiology attending [id number] Score for Atrial Fibrillation Stroke Risk Age in Years: 65-74 Sex: Male CHF History: No Hypertension History: Yes Stroke/TIA/Thromboembolism History: Yes Vascular Disease History: Yes Diabetes History: Yes [id number] Score: 6 Complexity. Hypocalcemia - Continue to monitor and replete. Any conditions listed below are present on admission unless otherwise specified. . Thank you for this consult. Please call with questions. We will continue to follow along. EU[facility] Consult Service Phone: [phone] * Bessie Bean, OT - 11/20/2023 8:02 AM EDT Acute Occupational Therapy Treatment Prior to Admission AM-PAC Score: PRIOR LEVEL AM-PAC Activity Raw Score: 24 PRIOR LEVEL AM-PAC Mobility Raw Score: 24 Current AM-PAC score(s): CURRENT AM-PAC Activity Raw Score: 17 Based on the above AM-PAC score(s), and OT clinical judgment, discharge destination recommendation is: Long-Term Facility Barriers to discharge home: Patient needs assistance with ADLs, Patient needs assistance with IADLs(see note below), Patient needs assistance with self-care for medical condition (see note below) Mobility equipment available at home: 2 wheeled walker, rollator ADL equipment available at home: shower chair, grab bars, hand held shower hose, elevated toilet seat Equipment recommendations for discharge: to be determined Current therapy frequency recommendation(s) in acute: 5 times a week Activity Recommendations for outside of rehab session: OOB for all meals, 3 walks per day (when respiratory status improves) Precautions and Weightbearing Status: Telemetry Patient Safety Communication Prior to Visit: Nursing Subjective: It feels good to get in the chair. Pain: General Pain Documentation (Adult, OB, Peds) Presence of Pain: denies pain/discomfort Presence of Pain Score (Auto-calculated): 0 Objective/Observation: Vitals/Vitals Responses to Treatment: 11/20/23 0802 Vitals ICU/PCU Pulse (Heart Rate) 83 BP 146/65 MAP (mmHg) 93 mmHg Oxygen Therapy O2 Sat (%) 94 % O2 Device CPAP Oxygen Concentration (%) 50 O2 Device: CPAP Cognition Overall Cognitive Status: Within Functional Limits ADL Assessment/Intervention: ADLs: Grooming Assistance: Set up supervision Grooming Location: seated in chair Grooming Intervention/Details: Pt washed his face without assistance; increased time required due to CPAP mask. LE Dressing Assistance: Moderate LE Dressing Location: edge of bed LE Dressing Intervention/Details: Pt attempted to utilize figure 4 method to don socks, however, farhan'ed significant LOB, requiring tactile cues to prevent him from sliding off bed. PT provided posterior support while OT facilitated figure 4 method and initiated pulling socks over toes. Pt then able to pull sock the rest of the way over his heel and up his davey. Extremity Assessments: See OT Evaluation flowsheet for Extremity Measurement updates. Balance: Sitting Balance Static Sitting-Level of Assistance: Minimum assistance Dynamic Sitting-Level of Assistance: Minimum assistance Sitting Balance Skilled Intervention/Details: Posterior lean noted and pt unable to maintain midline postural alignment without hands on assistance; required verbal/tactile cues to facilitate midlinealignment Standing Balance Static Standing-Level of Assistance: Minimum assistance, 2-person assist Dynamic Standing-Level of Assistance: Minimum assistance, 2-person assist Skilled Rationale: Facilitate anterior shift, Full extension to upright positioning/posture Standing Balance Skilled Intervention/Details: 2 standing trials to facilitate dynamic standing balance/tolerance in preparation for functional mobility. Pt able to weight shift laterally and performmarches with light hands on assistance for balance to reduce risk of falls. Mobility Assessment/Intervention: Supine to Sit Mobility [place] Level: Supine->Sit: moderate assist (50% patient effort) Physical Assist: Supine->Sit: 2 person assist Bed Features/Set-up: Supine->Sit: Head of bed elevated, Use of bed rail Skilled Rationale: Sequencing, Positioning, Verbal cues, Hand placement Skilled Intervention/Details: Supine->Sit: Pt able to progress LE toward EOB but required assistance to advance off bed and right trunk to midline due to generalized weakness. Transfer Assessment/Intervention: Sit to Stand Transfer [place] Level: Sit->Stand: minimum assist (75% patient effort) Physical Assist: Sit->Stand: 2 person assist Skilled Rationale: Arm in arm, Ischial assist, Patellar block, Facilitate anterior shift, Full extension to upright positioning/posture Skilled Intervention/Details: Sit->Stand: x2 reps; cues to rock forward and count to 3 to gain momentum in preparation for ascent with tactile cues provided at hips/knees to reduce risk of posterior LOB. Stand to Sit Transfer [place] Level: Stand->Sit: minimum assist (75% patient effort) Physical Assist: Stand->Sit: 2 person assist Assistive Device: Stand->Sit: armed chair Skilled Rationale: Verbal cues, Hand placement, Technique of activity, Controlled descent for sitting Skilled Intervention/Details: Stand->Sit: Cues to cross UE over chest and utilize eccentric control to slowly descend into chair. Bed-Chair Transfer [place] Level: Bed<->Chair: minimum assist (75% patient effort) Physical Assist: Bed<->Chair: 2 person assist Skilled Rationale: Arm in arm, Ischial assist, Patellar block, Facilitate anterior shift, Full extension to upright positioning/posture Skilled Intervention/Details: Bed<->Chair: Cues for postural alignment in midline throughout transfer with tactile cues provided at hips/knees to reduce risk of posterior LOB Functional Mobility: Functional Mobility Skilled Intervention/Details - Functional Mobility/Gait: Deferred due to pt on CPAP and RN reportedpt de'satted when they attempted to put him on 15L. Outcome Score(s): CURRENT [facility] Daily Activity Inpatient Short Form Putting on/Taking Off Lower Body Clothin - A Lot of Assistance Bathin - A Lot of Assistance Toiletin - A Little Assistance Putting on/Taking Off Upper Body Clothin - A Little Assistance Groomin - A Little Assistance Eatin - No Assistance CURRENT [facility] Activity Raw Score: 17 CURRENT [facility] Activity Functional Limitation/Modifier: 50.11% Currently Impaired in Daily Activity- CK Assessment & Plan: Pt demonstrating good progress toward long filler cigar roller machine goals as evidenced by ability to perform standing balance tasks and OOB mobility to chair, however, pt limited by medical status (respiratory status and unable to come off CPAP at this time) 2in ability to perform self-care tasks with independence. Ptwill benefit from continued rehab at SNF to progress toward long filler cigar roller machine goals. Pt will continue to benefit from skilled OT during hospital admission for ADL retraining and fall prevention to increase independence with self care tasks and reduce burden of care at discharge. Patient Instruction/Education this session: Learners: Patient Education provided: Balance training Plan for next session: Standing ADLs Acute OT Goals Plan of Care by Bessie Bean OT at 11/20/2023 11:01 AM Version 1 of 1 Problem: OT - Transfers Goal: Transfers Toilet/ Bedside Commode - Patient will transfer to/from toilet with modified independence for improved ability to safely complete ADLs. Outcome: Progressing Problem: OT - Balance Goal: Balance - Standing - Patient will perform 7 minutes of functional task in standing with modified independence and good balance to promote safety and improved balance required for self-care activities. Outcome: Progressing OT treatment consisted of the following to work and progress towards the above goal(s): OT Evaluation and Treatment Time Self Care/Home Management (ADLs) Time Entry: 10 Therapeutic Activity Time Entry: 13 Treating Therapist: Bessie Bean OT Additional Details: OT Co-Eval/Treatment Information Co-evaluation/co-treatment performed?: Yes, simultaneous billable skilled care was necessary due tomedical complexity and functional deficits Other discipline: PT Rationale for need to co-eval/treat: postural control (balance deficits, and medical status) Assisted by during session: WALKER Mcdowell Non-billable assistance during session: RASHI Mcdowell PPE used during patient interaction: facemask, gloves Patient location at end of session: chair Alarms on at end of session: RN aware Needs in reach. Time In: 801 Time Out: 824 Total Visit Time: 23 minutes Total Treatment Time (skilled, billable minutes): 23 minutes Upon discontinuation of Acute Care Occupational Therapy Services or patient discharge from the hospital this note represents the current Occupational Therapy Discharge Summary. * Catalina Moreno RD - 11/20/2023 7:29 AM EDT NUTRITION SCREENING Nutrition Recommendations and Plan of Care: 1. S/p LHC, resume a Carb Controlled Diet 2. Nutrition will continue to follow per policy and assess more frequently if needed Past History: Reviewed charted notes. Yony Vega is a 68 y.o. male with PMH of HTN, mood disorder, iron deficiency, DM, GERD, stroke, R-sided carotid endarterectomy (2008), CAD/CABG (2007, stent placed in 2014, bypass 2007), colorectal cancer (s/p chemo 2 yrs ago in remission since May 2023). Presented withL-sided facial droop, worsening numbness & dysarthria. Carotid duplex w/70-99% R ICA stenosis, 1-49% L ICA stenosis. OSH CTA brain demonstrated <50% stenosis of bilateral carotid arteries. S/p R TCAR given previous R CEA 11/15. Patient w/chest discomfort & increased WOB 11/16. EKD showed elevation in aVR & inferior & anterolateral depression. Admitted to CVICU 11/17 d/t respiratory requirements. Past surgical, family, and social histories have been reviewed and are located elsewhere in the medical record. Nutrition History: Patient evaluated per nutrition screening protocol. POD#4 s/p R TCAR. Cardiology following - plan for [facility] today. Visited patient. Obtained wt/intake hx. Patient endorsed a UBW of 150 lbs. Denied changes in wt/appetite/intake [employer]. Limited wt records reflect stable wt around 145-150 lbs. Patient stated he was eating well, typically at least x2 meals daily (breakfast, dinner) & snacks during the day. NFPE was not performed, though no muscle/fat depletion observed. No malnutrition identified. Patient stated he has been eating well throughout admit when not NPO for procedures. Charted meals between 75-100% over the last week with average intake of 97% x8 meals - meeting nutrition needs. S/p LHC resume Carb Controlled Diet. Diet Order: DIET NPO WITHOUT meds (previously Carb Controlled Diet) Anthropometrics: Admit Height: 167.6 cm (5' 6) Admit Weight: 67.1 kg (148 lb) (11/11) Admit BMI: 23.9 kg/m IBW: 64.5kg; % IBW: 104% Weight History: Wt Readings from Last 20 Encounters: 08/29/23 67.4 kg (148 lb 11.2 oz) 07/19/23 67.1 kg (148 lb) 05/24/23 65.9 kg (145 lb 3.2 oz) Weights per Care Everywhere: 06/21/23 65.5kg Weights this admit: 11/19 71.8kg 11/17 64.9kg 11/13 64.9kg Weight Change: Stable wt around 145-150 lbs observed [employer]MENT. Wt gain noted since 11/17- likely wt inaccuracy vs elevated r/t fluid Meds reviewed: insulin (NPH, SSI), Protonix, Miralax; 11/18- 20mg Lasix, 40mg Lasix; PRN- 4g Mg Sulfate (x1 11/18, x1 11/20), 60mEq Kdur (x1 11/19), 10mEq Kcl (x4 11/18) Labs reviewed: Ca 8, glucose 224, POC glucose 186-373 mg/dL (x24 hrs); 11/12- HgbA1C 7.8 GI: colostomy output 50mL 11/17 Skin Integrity: abrasion R back; surgical wound R carotid; sheath site L femoral Edema: none documented Estimated Nutrition Needs: Weight Used: admit wt of 67kg Estimated Energy Requirements (kcal/day): 5487-6173 kcal/day (25-30 kcal/kg) Estimated Protein Requirements (g/day): 80-101 g pro/day (1.2-1.5 g/kg) Estimated Fluid Requirements: 1 mL/kcal or per primary team discretion EMR including meds, labs, I&Os, vitals, and allergy list reviewed. Assessment: Patient is not currently at nutrition risk. Catalina Moreno, MPH, RD, LD, [facility] Pager #[phone] * Donna Bailey, [employer]TA[employer]CLOUD DEVELOPER - 11/19/2023 11:44 AM EDT CARDIOLOGY CONSULT PROGRESS NOTE Cardiology consult 11/18/23 for chest pain HPI I saw Mr. Yony Vega in follow-up on 11/19/2023. He is a 68 y.o. male with a history of 68 y.o.male with a history of SANTANA s/p right TCAR, AF, CAD s/p CABG admitted on 11/12/2023 with left sided numbness. Hospital course c/b new onset chest pain. ASSESSMENT AND PLAN Chest pain: developed chest pain on 11/16 ( had a right TCAR 11/16/23): hs troponin peaked at 3685 with downward trend 12 lead ECG showed SR with ST depression in inferolateral leads, JONAS in aVR. Subsequent ECG with near resolution from Previous ECG. - TTE on 11/17 reported normal LV size & function with EF 55-60% with normal wall motion, grade II DD, normal RV, RVSP 44 mm Hg - Denies chest pain today - Continue IV heparin x 48 hours post troponin peak ( continues on drip for pAF) - Continue ASA 81 mg daily, Clopidogrel 75 mg daily, coreg 12.5 mg BID, Rosuvastatin 40 mg daily - Will consider an ischemic evaluation prior to discharge - Follow up with OP cardiology in 4 weeks CAD, /p CABG 2007, s/p PCI with stent 2014 - Denies chest pain - Nuclear stress test 11/14/2023 was negative for ischemia or infarction - TTE on 11/17 reported normal LV size & function with EF 55-60% with normal wall motion, grade II DD, normal RV, RVSP 44 mm Hg - Continue ASA, coreg 12.5 mg BID, Rosuvastatin PAF - Remains in SR on telemetry. Continue coreg - [id number] score of 6- continue IV heparin for now - Mobile renal dietitian at discharge to assess AF burden - Follow up with OP cardiology in 4-6 weeks HTN - Stable. Continue coreg 12.5 mg BID, amlodipine 5 mg daily HLD lipid profile 11/13/23: TC 150, HDL 29, TG 279, LDL 65 - Continue Rosuvastatin 40 mg daily H/o CVA Right carotid stenosis- s/p right TCAR INTERVAL HISTORY/REVIEW OF SYSTEMS Over the last day, he had no acute events. Review of Systems Constitutional: Positive for malaise/fatigue. Cardiovascular: Negative for chest pain, leg swelling and palpitations. Respiratory: Positive for cough and shortness of breath. Negative for wheezing. Gastrointestinal: Positive for nausea. Negative for bloating, abdominal pain and vomiting. Neurological: Negative for dizziness and headaches. PHYSICAL EXAM BP 137/65 (BP Location: Right arm, BP Position: Lying) Pulse 73 Temp 98.3 F (36.8 C) (Axillary) Resp 13 Ht 1.676 m (5' 6) Wt 66.8 kg (147 lb 4.3 oz) SpO2 97% BMI 23.77 kg/m Smoking Status Never Constitutional: Awake, cooperative male in no acute distress. Chest: Respiratory effort unlabored, lung sounds coarse BS anteriorly, on 12 L high flow n/c Cardiovascular: No JVD appreciated. Normal rate & regular rhythm; S1 normal, S2 normal, no gallop, no friction rub or murmur heard. Abdomen: Soft, non-tender, non-distended. +BS. Extremities: No peripheral edema. No stasis dermatitis. Radial pulses 2+ bilaterally, dorsalis pedis pulses are 2+ bilaterally. Neurological: Alert and oriented to person, place and time. Skin: Warm, dry. No cyanosis. Nails show no clubbing. CARDIOVASCULAR IMAGING/DATA Results for orders placed during the hospital encounter of 11/12/23 ECHOCARDIOGRAM LIMITED/FOLLOWUP 11/18/2023 (Final) Interpretation Summary Limited study. The left ventricular chamber size and systolic function are normal. LVEF 55-60%. Normal LV wall motion. Grade II diastolic dysfunction. The right ventricular chamber size and systolic function are normal. Estimated RVSP 44 mmHg. 24 hour telemetry (personally reviewed): SR ADDITIONAL DATA REVIEWED Intake/Output Summary (Last 24 hours) at 11/19/2023 0744 Last data filed at 11/19/2023 0700 Gross per 24 hour Intake 1325.76 ml Output 2100 ml Net -774.24 ml Temp: [97.5 F (36.4 C)-98.8 F (37.1 C)] 98.3 F (36.8 C) Pulse (Heart Rate): [73-91] 73 Resp Rate: [13-31] 13 BP: (101-176)/(56-81) 137/65 O2 Sat (%): [83 %-97 %] 97 % Weight: [64.9 kg (143 lb 1.3 oz)-66.8 kg (147 lb 4.3 oz)] 66.8 kg (147 lb 4.3 oz) Oxygen Therapy O2 Sat (%): 97 % O2 Device: CPAP Flow (L/min): 9 Oxygen Concentration (%): 50 Body mass index is 23.77 kg/m . LABS Bun/Creat/Cl/CO2/Glucose: 22/0.92/95/27/263 (11/19 51-11/18 536) Na/K+/Phos/Mg/Ca: 133/3.9/2.5/1.4/8.4 (11/19 51) WBC/Hgb/Hct/Plts: 9.44/10.3/31.1/209 (11/19 51) BNP (pg/mL) Date Value 11/18/2023 259 (H) Lab Results Component Value Date CHOLESTEROL 150 11/13/2023 TRIG 279 (H) 11/13/2023 HDL 29 (L) 11/13/2023 LDLCALC 65 11/13/2023 CURRENT MEDICATIONS: Acetaminophen 650 mg Oral 4x daily Or Acetaminophen 650 mg Per NG tube 4x daily amLODIPine 5 mg Oral Daily aspirin 81 mg Oral Daily balsam-castor oil 1 Application Topical Q8H carveDILOL 12.5 mg Oral Q12H Clopidogrel 75 mg Oral Daily DULoxetine 60 mg Oral QHS Gabapentin 300 mg Oral QHS [Held by provider] insulin glargine 40 Units Subcutaneous Q12H Insulin lispro Subcutaneous TID AC Pantoprazole 40 mg Oral Daily Polyethylene glycol 17 g Oral Daily Rosuvastatin 40 mg Oral Daily heparin 12 Units/kg/hr (11/19/23 0544) Plan made in collaboration with Dr. Enrique Gonzalez, cardiology attending [id number] Score for Atrial Fibrillation Stroke Risk Age in Years: 65-74 Sex: Male CHF History: No Hypertension History: Yes Stroke/TIA/Thromboembolism History: Yes Vascular Disease History: Yes Diabetes History: Yes [id number] Score: 6 Complexity. Hyponatremia - Secondary to fluid shifts. Monitor. Hypomagnesemia - Continue to monitor and replete. Hypocalcemia - Continue to monitor and replete. Any conditions listed below are present on admission unless otherwise specified. . Thank you for this consult. Please call with questions. We will continue to follow along. EUSE[facility] Card[facility] Consult Service Phone: [phone] * Victor Manuel Coyne, DO - 11/19/2023 11:29 AM EDT CVICU Attending Critical Care NoteASSESSMENT AND PLAN ASSESSMENT AND PLAN Yony Vega is a 68 y.o. patient s/p R TCAR by Boom Ford MD on surgery date 11/16/2023. ICU Summary: 11/17 - admit from floor w troponin leak and respiratory insufficiency Important points to emphasize in the critical care management are: Acute post-op respiratory insufficiency: - Continue with NIMV - Wean FiO2 - Trial HHFNC - OOBTC, PT/OT, IS as able. NSTEMI: - Plan for LHC - Trop downtrending, no chest pain currently. - Continue DAPT, heparin gtt. - Add NTG with recurrence. Carotid stenosis: - POD #3 TCAR - ASA, clopidogrel, statin. - Serial exams. RELEVANT INFORMATION VITALS: Blood pressure 136/63, pulse 76, temperature 98.2 F (36.8 C), temperature source Oral, resp. rate 22, height 1.676 m (5' 6), weight 66.8 kg (147 lb 4.3 oz), SpO2 95%. Documentation of LDA necessity Line necessity: N/A Mackenzie necessity: N/A Airway necessity: N/A I spent 32 minutes providing critical care services and making complex medical decisions for this critically ill patient on behalf of Boom Ford MD. This time includes examining the patients, reviewing patient data, discussions with other providers and speaking to family members. This time does not include performing any procedures. I have discussed this patient with the ADRIÁN and agree with their assessment, plan and decision making or have made amendments where appropriate. Documentation of Comorbid Conditions Complexity. Hyponatremia - Secondary to fluid shifts. Monitor. Hypomagnesemia - Continue to monitor and replete. Hypocalcemia - Continue to monitor and replete. Any conditions listed below are present on admission unless otherwise specified. .Peripheral Vascular Disease - carotid stensois s/p prior CEA, TCAR Ischemic CVA, Location: by ASHLIE Willingham, 11/19/2023 11:29 AM * Jose Eduardo Cobos, PAC - 11/19/2023 11:16 AM EDT CVICU DAILY PROGRESS NOTE. HISTORY OF PRESENT ILLNESS: Mr. Vega is a 68 y.o. male who has a pertinent past medical history including CAD s/p CABG 2007 and subsequent PCI 2014, prior CVAs, pAF, HTN, HLD, DM, prior R CEA who underwent R TCAR on 11/15 given prior CEA. Patient started to have chest discomfort evening of 11/16 and increased WOB. EKG showedelevation in aVR and inferior and anterolateral depression. Over the course of the day, respiratorystatus worsened up to 9L and NIMV. He was transferred to the ICU due to respiratory needs Plan for 11/19/2023: - Cardiology following, planning for possible LHC on Monday - Check one more troponin, if down trending will stop - Diurese with Lasix today - NPO at midnight - Continue DAPT and heparin gtt SYSTEM BASED PLAN . Neurological: Acute Post-Operative Pain -- DVPRS: Rest: 0- no pain (11/18 0800) DVPRS: Activity: 0- no pain (11/18 0800) PRN oxy and tylenol. Agitation/Delirium- Overall CAM-ICU: Negative Delirium precautions Day/night sleep cycle, sleep hygiene Depression Continue home Cymbalta Prior CVA (2008, 2011 with L side decrease sensation) - Underwent TECAR on 11/14 - Plan to continue home ASA, Plavix and heparin gtt Cardiovascular: Right carotid endarterectomy s/p TECAR on 11/14 - Continue DAPT and heparin gtt - Continue statin Hypertension- SBP goal <140 Home medications: coreg 6.25 and Amlodipine CAD s/p CABG 2007 and PCI in 2014 - Continue ASA, statin, and Coreg NSTEMI - ECG with ST elevation in aVR and inferolateral ST depresssion on 11/16 - Troponin peaked at 3685 and are down trending - Continue DAPT and heparin gtt - Echo on 11/17 with normal function and no wall motion abnormalities PAF - Continue coreg - [id number] at 6 - Cardiology recommending DAPT and DOAC for 30 days once appropriate Pulmonary: Acute Post-Operative Respiratory Failure (5+ L) with hypoxia Maintain O2 Sat > 90% with oxygen as needed Wean supplemental oxygen/support as able. Incentive Spirometry while awake Plan: Pulmonary toilet/diuresis Renal: Normal kidney function Baseline Creatinine: 0.92 Baseline GFR: > 60 Urine output: good Monitor chemistries Gastrointestinal: Acute Post Operative Constipation - Last Bowel Movement: 11/19/23. Bowel regimen in place with scheduled miralax and senna. PRN dulcolax suppository. Current Diet Orders Procedures DIET NPO WITHOUT meds Standing Status: Standing Number of Occurrences: 1 Order Specific Question: NPO Meds: Answer: WITHOUT meds Normal: Body mass index is 23.77 kg/m . Integumentary/Musculoskeletal Active Incisions Wounds - Wound Abrasion 11/13/23 0215 Right Back (6) Wound Surgical 11/16/23 1241 Right Carotid (3) Wound Sheath Site 11/16/23 1305 Anterior;Left Femoral (3) Endocrinology Post-Operative Stress Induced Hyperglycemia - SSI Consult endocrinology for insulin management HgbA1c= 11/13/2023: Hemoglobin A1C HPLC 7.8 Hematology Post-operative Acute Blood Loss Anemia No concern for ongoing blood loss CTM daily H/H, no indication for transfusion at this time Infectious Disease No issues at this time Complexity Hyponatremia - Secondary to fluid shifts. Monitor. Hypomagnesemia - Continue to monitor and replete. Hypocalcemia - Continue to monitor and replete. ICU Liberation Checklist: ABCDEF Bundle Reviewed: [x] Yes [] No Breathing: SBT: [] Passed [] Failed [] Does not meet criteria [x] N/A SAT: [] Yes [] No [x] N/A Vascular Access/Line/Tubes/Drains: Lines to be removed: none List lines, tubes, drains and insertion date: - PIVs Assessed insertion site: [x] Yes [] No Choice of Analgesia/Sedation: Pain: [x] Controlled [] Uncontrolled Continuous Infusions: [] Sedation [] Analgesia [] NMB [x] None Delirium: Overall CAM-ICU: Negative CAM: [] Positive [x] Negative [] Unable to assess Restraints: [x] None [] Soft limb [] Milady mitts [] Other Prophylaxis Bundle: HOB: 30 degrees Stress ulcer ppx: [] Yes [] Therapeutic [] Home regimen [x] No, not indicated Chemical DVT ppx: [x] Yes [] No, SCDs ordered Therapy Services: ENTRY LEVEL MARKETING ASSISTANT: [] Swallow [] Cognitive Eval [] Speaking Valve [x] N/A Early Mobility: PT/OT consulted: [x]Yes [] No, d/t clinical status [] No, pt is independent Current Mobility Status: Ambulate OBJECTIVE VITALS: Blood pressure 136/63, pulse 76, temperature 98.2 F (36.8 C), temperature source Oral, resp. rate 22, height 1.676 m (5' 6), weight 66.8 kg (147 lb 4.3 oz), SpO2 95%. PHYSICAL EXAM: GENERAL: Alert, oriented x 3, No acute distress HEENT: PEERL, EOMI, MMM HEART: RRR, +S1+S2, No murmurs LUNG: Non-Labored, no wheezing ABD: Soft, Non-Distended, Non-Tender EXT: Warm, no cyanosis, no edema in bilateral lower extremities. PULSE: Palpable Bilateral DP Pulses MUSC: Moves all 4 Extremities NEURO: Grossly intact, no acute deficits appreciated PSYCH: Appropriate for the clinical situation GITA [facility] Cardiovascular ICU/ Cardiac Surgery 11/19/23 11:16 AM * Iris Donnelly MD - 11/19/2023 10:12 AM EDT VASCULAR SURGERY PROGRESS NOTE HPI: Yony Vega is a 68 y.o. male who presented with symptomatic right carotid stenosis. Plan for right TCAR given previous R CEA Subjective: Trops peaked, downtrending 2500. Chest pain improved, On CPAP, 80 of lasix yesterday, no headache/ nausea/ no neuro symptoms. Objective: Vital Signs: Temp: [98.3 F (36.8 C)-98.8 F (37.1 C)] 98.3 F (36.8 C) Pulse (Heart Rate): [72-91] 79 Resp Rate: [13-31] 25 BP: (101-176)/(56-81) 138/63 O2 Sat (%): [83 %-99 %] 90 % Weight: [66.8 kg (147 lb 4.3 oz)] 66.8 kg (147 lb 4.3 oz) Fluid Management: I/O last 3 completed shifts: In: 1214.5 [P.O.:876; I.V.:205.6; IV Piggyback:132.9] Out: 2100 [Urine:2049] Wt Readings from Last 3 Encounters: 11/19/23 66.8 kg (147 lb 4.3 oz) 08/29/23 67.4 kg (148 lb 11.2 oz) 07/19/23 67.1 kg (148 lb) Physical Exam: Gen: NAD, resting comfortably Neuro: CN II-XII grossly intact, no focal signs. Baseline LUE weakness Cardiac: RRR Lungs: On Bipap Abd: soft, NT, ND Incision: right neck incision soft with small stable hematoma. Surrounding skin ecchymotic and macerated. Left groin soft without hematoma Extremities: pink, warm, no new ulcers/wounds, no edema, 5+ motor, sensation intact in BLE Pulses: Bilateral DP/PT palpable Labs: WBC/Hgb/Hct/Plts: 9.44/10.3/31.1/209 (11/19 51) Na/K+/Phos/Mg/Ca: 133/3.9/2.5/1.4/8.4 (11/19 51) Bun/Creat/Cl/CO2/Glucose: 22/0.92/95/27/250 (11/19 51-11/18 921) Ptt/Pt/Inr: 81.0/--/-- (11/19 51) Imaging: Assessment & Plan: Yony Vega is a 68 y.o. male who presented with symptomatic right carotid stenosis. Found to have Punctuate R frontal and R occipital stroke . Now on 3 Days Post-Op s/p Procedure(s) (LRB): PLACEMENT INTRAVASCULAR STENT CERVICAL CAROTID ARTERY OPEN (Right) on 11/16/[address] Ford. NSTEMI, trops peaked. Echo showed LVEF 55-60%, normal, LV function, RV systolic function normal, Grade 2 diastolic dysfunction. Transferred to ICU yesterday for increased oxygen requirements. Wean astolerated, more diuresis today. Cardiology planning for [facility] tomorrow. Please keep NPO after midnight and preo-op labs tonight. Diet: Low Carb Activity: Advance as tolerated DVT ppx: SCDs Bowel Regimen: Miralax and senna daily, PRN suppository Complexity. Hyponatremia - Secondary to fluid shifts. Monitor. Hypomagnesemia - Continue to monitor and replete. Hypocalcemia - Continue to monitor and replete. Any conditions listed below are present on admission unless otherwise specified. . Right carotid stenosis Punctuate R frontal and R occipital stroke - S/p right TCAR - Continue 81 mg ASA and 75 mg Plavix daily Will also need anticoagulation for new afib. Eliquis check--> $0 - Patient will discharged on triple therapy for 1 month. Will stop PLAVIX after 30 days. Then Eliquis and ASA ongoing. - Continue crestor - Goal SBP 100-140 mmHg, PRNs available - Continue frequent neuro and vascular checks - PT/OT--> previously recommended SNF. Will re-evaluate post-op - Neurovasc signed off 11/16--> Cont Statin and aspirin. Follow-up with neurovasc in 1-2 weeks (ordered) Acute pain -Pain control: Scheduled tylenol PRN: oxycodone Acute blood loss anemia - Daily CBC, transfuse if less than 7 or symptomatic HLD (POA) - Continue 40mg crestor Lab Results Component Value Date CHOLESTEROL 150 11/13/2023 TRIG 279 (H) 11/13/2023 HDL 29 (L) 11/13/2023 LDLCALC 65 11/13/2023 HTN (POA) - SBP 100-140 - Cont home coreg andnorvasc Mood disorder, POA - Continue home duloxetine 60 mg DM, POA - Takes insulin lispro at home - Continue SSI here - Carb controlled diet GERD, POA - Takes omeprazole at home - Continue Protonix here CAD/CABG (2007, Stent placed in 2014, Bypass in 2007) - ASA and statin as above Paroxymal Atrial Fibrillation - Coreg as above - [id number] at 6 - Eliquis as above - Cardiology follow-up in 4-6 weeks. 30 day tele monitor at discharge The patient continues to require the followings lines, tubes and drains: PIVs These are required for the following reasons: Continuation of inpatient Care PLAN - Cont DAPT - Carb controlled diet - May check DOAC. Eliquis $0/month - PT/OT for dispo planning Dispo: Continue ICU care. Dispo pending . Therapy recommending SNF. Iris Donnelly MD 11/19/2023 Vascular Surgery Team: [facility] Floor patients: M-F 6am-5pm please call. Julianne # [id number]/Garrick #[id number]. After 5pm M-F and weekends please page the collection correspondent resident. Consults: please page the collection correspondent resident ICU patients: page collection correspondent fellow or chief resident. -[employer] chat is not a reliable method of communication with a surgical service for urgent needs -The person who wrote this note may be off service, post call, or otherwise unavailable Iris Donnelly MD 11/19/2023 * Mauricio Dejesus MD - 11/19/2023 1:43 AM EDT CVICU Attending Critical Care NoteASSESSMENT AND PLAN ASSESSMENT AND PLAN Yony Vega is a 68 y.o. patient s/p R TCAR by Boom Ford MD on surgery date 11/16/2023. ICU Summary: 11/17 - admit from floor w troponin leak and respiratory insufficiency Important points to emphasize in the critical care management are: NSTEMI - seen by cardiology and conservative mgmt recommended for now, cont to trend troponins (nowdecreasing), lactate has peaked, cont heparin gtt and DAPT Acute respiratory insufficiency - cont CPAP tonight, [facility] if [facility] RELEVANT INFORMATION VITALS: Blood pressure 166/81, pulse 89, temperature 98.3 F (36.8 C), temperature source Oral, resp. rate 20, height 1.676 m (5' 6), weight 64.9 kg (143 lb 1.3 oz), SpO2 96%. pH/PCO2/PO2/HCO3: 7.40/41/91/25 (11/18 427) Documentation of LDA necessity Line necessity: n/a Mackenzie necessity: n/a Airway necessity: n/a I spent 33 minutes providing critical care services and making complex medical decisions for this critically ill patient on behalf of Boom Ford MD. This time includes examining the patients, reviewing patient data, discussions with other providers and speaking to family members. This time does not include performing any procedures. I have discussed this patient with the ADRIÁN and agree with their assessment, plan and decision making or have made amendments where appropriate. Documentation of Comorbid Conditions Complexity. Hypomagnesemia - Continue to monitor and replete. Hypocalcemia - Continue to monitor and replete. Any conditions listed below are present on admission unless otherwise specified. .Peripheral Vascular Disease - s/p TCAR Mauricio Dejesus MD 11/19/2023 1:43 AM * Darinel Graves, - 11/18/2023 10:43 AM EDT CARDIOLOGY PROGRESS NOTE I saw Mr. Yony Vega in follow-up on 11/18/2023. He is a pleasant 68 y.o. male with a history of SANTANA s/p right TCAR, AF, CAD s/p CABG admitted with left sided numbness ASSESSMENT AND PLAN: CARDIAC PROBLEM LIST Chest pain CAD s/p revascularization (CABG 2007, PCI 2014) Paroxysmal AF (CHADSVASC at least 7 - CAD, SANTANA, CVA, age, HTN, DM) Overnight concerning chest pain with ECG demonstrating ST elevation in aVR, inferolateral ST depressions Chest pain improved spontaneously with ECG near resolution of prior findings No further chest pain this AM Recommend continuing to trend troponin. If chest pain returns or significant changes please alert cardiology. Continue DAPT and Heparin gtt Echo today Pending results of troponin trend and echo will consider LHC next week The above has been discussed with the cardiology attending, Dr. Carlos Graves, DO Cardiovascular Medicine Fellow [facility] INTERIM HISTORY Overnight: - Chest pain with ECG changes - Notes the chest pain felt pressure like in the left anterior chest wall radiating to the left shoulder and upper back. Improved after several hours. - No further chest pain as of this AM CURRENT MEDICATIONS: Acetaminophen 650 mg Oral 4x daily Or Acetaminophen 650 mg Per NG tube 4x daily amLODIPine 5 mg Oral Daily aspirin 81 mg Oral Daily balsam-castor oil 1 Application Topical Q8H carveDILOL 12.5 mg Oral Q12H Clopidogrel 75 mg Oral Daily DULoxetine 60 mg Oral QHS faMOTIdine 20 mg Per NG tube Q12H Or faMOTIdine 20 mg Oral Q12H Gabapentin 300 mg Oral QHS [Held by provider] insulin glargine 40 Units Subcutaneous Q12H Insulin lispro Subcutaneous TID AC Pantoprazole 40 mg Oral Daily Polyethylene glycol 17 g Oral Daily Rosuvastatin 40 mg Oral Daily heparin 12 Units/kg/hr (11/18/23 0609) PHYSICAL EXAM Intake/Output Summary (Last 24 hours) at 11/18/2023 1043 Last data filed at 11/18/2023 0943 Gross per 24 hour Intake 903.54 ml Output 2230 ml Net -1326.46 ml Temp: [97.5 F (36.4 C)-98.5 F (36.9 C)] 97.5 F (36.4 C) Pulse (Heart Rate): [56-91] 81 Resp Rate: [12-25] 20 BP: (117-157)/(56-72) 133/64 O2 Sat (%): [80 %-97 %] 94 % Weight: [64.9 kg (143 lb 1.3 oz)] 64.9 kg (143 lb 1.3 oz) BP 133/64 Pulse 81 Temp 97.5 F (36.4 C) (Axillary) Resp 20 Ht 1.676 m (5' 6) Wt 64.9 kg (143 lb 1.3 oz) SpO2 94% BMI 23.09 kg/m Smoking Status Never General appearance: The patient is alert, oriented, cooperative and in no distress. Heent: Normocephalic. Normal conjunctiva. Neck: The thyroid is midline. Well hearing surgical scar. Chest: Clear to auscultation bilaterally. Normal effort and percussion. Heart: Regular rate and rhythm. S1, S2 normal. Abdomen: Soft, non-tender. Normal appearance. Bowel sounds normal. Extremities: Normal, atraumatic, no cyanosis or edema. No ulcers. DATA REVIEWED Bun/Creat/Cl/CO2/Glucose: 18/0.81/102/25/210 (11/17 33-11/18 631) Na/K+/Phos/Mg/Ca: 137/4.1/3.2/1.8/8.5 (11/17 33) WBC/Hgb/Hct/Plts: 9.69/11.4/35.7/200 (11/17 33-11/17 240) Associated attestation - Enrique Gonzalez MD - 11/18/2023 11:01 AM EDT ATTENDING ADDENDUM I discussed, examined, and evaluated the patient with the fellow/resident/CLOUD DEVELOPER on 11/18/2023. I have independently confirmed essential components of the medical history and the physical examination. I personally reviewed available pertinent labs, EKGs, imaging. I agree with the note including history, examination, and medical decision making, with the following addendum: Yony Vega is a 68 y.o. male with CAD s/p prior CABG in 2008 and PCI in 2015, paroxysmal afib.He is here with concern for stroke and found to have carotid disease. He underwent right carotid surgery a couple days ago. Last night, he had acute onset chest pain in left upper chest with radiation to left shoulder area. EKG showed new diffuse ST depression. The pain eventually subsided over a couple hours. Updated EKG showed improvement in ST depression. Initial troponins are just mildly elevated. Overall presentation is concerning for NSTEMI given the EKG changes. Agree with keeping on heparin drip and trending troponins. We will also get a limited echo for LV function and wall motion. Depending on results, likely will need LHC. He is already on DAPT. Enrique Gonzalez MD, FACC Management Trainee Program [employer] coater Division of Cardiovascular Medicine [facility] * Iris Donnelly MD - 11/18/2023 10:00 AM EDT VASCULAR SURGERY PROGRESS NOTE HPI: Yony Vega is a 68 y.o. male who presented with symptomatic right carotid stenosis. Plan for right TCAR given previous R CEA Subjective: Overnight with chest pain, workup revealed ST depressions. Increased WOB with NRB, improved with lasix. Cardiology consulted. Pain improved this AM, no increase in neck hematoma with heparin. Tolerating a diet. No neuro complaints Objective: Vital Signs: Temp: [97.5 F (36.4 C)-98.5 F (36.9 C)] 97.5 F (36.4 C) Pulse (Heart Rate): [56-91] 81 Resp Rate: [12-25] 20 BP: (117-157)/(56-72) 133/64 O2 Sat (%): [80 %-97 %] 94 % Fluid Management: I/O last 3 completed shifts: In: 877.8 [P.O.:240; I.V.:386.7; IV Piggyback:251.1] Out: 1425 [Urine:1425] Wt Readings from Last 3 Encounters: 11/14/23 64.9 kg (143 lb) 08/29/23 67.4 kg (148 lb 11.2 oz) 07/19/23 67.1 kg (148 lb) Physical Exam: Gen: NAD, resting comfortably Neuro: CN II-XII grossly intact, no focal signs. Baseline LUE weakness Cardiac: RRR Lungs: no respiratory distress Abd: soft, NT, ND Incision: right neck incision soft with no hematoma. Surrounding skin ecchymotic and macerated. Left groin soft without hematoma Extremities: pink, warm, no new ulcers/wounds, no edema, 5+ motor, sensation intact in BLE Pulses: Bilateral DP/PT palpable Labs: WBC/Hgb/Hct/Plts: 9.69/11.4/35.7/200 (11/17 33-11/17 240) Na/K+/Phos/Mg/Ca: 137/4.1/3.2/1.8/8.5 (11/17 33) Bun/Creat/Cl/CO2/Glucose: 18/0.81/102/25/210 (11/17 33-11/18 631) Ptt/Pt/Inr: 87.6/--/-- (11/17 608) Imaging: Assessment & Plan: Yony Vega is a 68 y.o. male who presented with symptomatic right carotid stenosis. Found to have Punctuate R frontal and R occipital stroke . Now on 2 Days Post-Op s/p Procedure(s) (LRB): PLACEMENT INTRAVASCULAR STENT CERVICAL CAROTID ARTERY OPEN (Right) on 11/16/[address] Ford. Overnight with chest pain, workup revealed ST depressions. Increased WOB with NRB, improved with lasix. Cardiology consulted. Appreciate cardiology recs, trend trops, continue heparin Diet: Low Carb Activity: Advance as tolerated DVT ppx: SCDs Bowel Regimen: Miralax and senna daily, PRN suppository Complexity. Hypocalcemia - Continue to monitor and replete. Any conditions listed below are present on admission unless otherwise specified. . Right carotid stenosis Punctuate R frontal and R occipital stroke - S/p right TCAR - Continue 81 mg ASA and 75 mg Plavix daily Will also need anticoagulation for new afib. Eliquis check--> $0 - PATIENT will discharged on triple therapy for 1 month. Will stop PLAVIX after 30 days. Then Eliquis and ASA ongoing. - Continue crestor - Goal SBP 100-140 mmHg, PRNs available - Continue frequent neuro and vascular checks - PT/OT--> previously recommended SNF. Will re-evaluate post-op - Neurovasc signed off 11/16--> Cont Statin and aspirin. Follow-up with neurovasc in 1-2 weeks (ordered) Acute pain -Pain control: Scheduled tylenol PRN: oxycodone Acute blood loss anemia - Daily CBC, transfuse if less than 7 or symptomatic HLD (POA) - Continue 40mg crestor Lab Results Component Value Date CHOLESTEROL 150 11/13/2023 TRIG 279 (H) 11/13/2023 HDL 29 (L) 11/13/2023 LDLCALC 65 11/13/2023 HTN (POA) - SBP 100-140 - Cont home coreg andnorvasc Mood disorder, POA - Continue home duloxetine 60 mg DM, POA - Takes insulin lispro at home - Continue SSI here - Carb controlled diet GERD, POA - Takes omeprazole at home - Continue Protonix here CAD/CABG (2007, Stent placed in 2014, Bypass in 2007) - ASA and statin as above Paroxymal Atrial Fibrillation - Coreg as above - [id number] at 6 - Eliquis as above - Cardiology follow-up in 4-6 weeks. 30 day tele monitor at discharge The patient continues to require the followings lines, tubes and drains: PIVs These are required for the following reasons: Continuation of inpatient Care PLAN - Cont DAPT - Carb controlled diet - May check DOAC. Eliquis $0/month - PT/OT for dispo planning Dispo: Continue PCU care. Dispo pending . Therapy recommending SNF. Iris Donnelly MD 11/18/2023 [facility]: M-F 6am-5pm please call. Julianne # [id number]/Garrick #[id number]. After 5pm M-F and weekends please page the collection correspondent resident. Consults: please page the collection correspondent resident ICU patients: page collection correspondent fellow or chief resident. -[employer] chat is not a reliable method of communication with a surgical service for urgent needs -The person who wrote this note may be off service, post call, or otherwise unavailable I have personally and independently reviewed the patient clinical history, imaging, and overall clinical course thus far. I have examined the patient, and agree with the resident/fellow notes as dictated below. ST depression overnight, with some chest pain. Resolved, but concerning for NSTEMI. On heparin currently. Mild hematoma over the right neck, but stable, without concerns for airway. Trending trop - new this AM at 2K. No further chest pain. Needs echo, will order. Appreciate cardiology recommendations. Pamela Jones MD 11/18/2023 * Sathish Perez DO - 11/18/2023 2:06 AM EDT Images from the original note were not included. Cardiology Progress Note Paged regarding new ECG changes. Pt is a 68 y/o M with CAD s/p CABG 2007 and subsequent PCI 2014, prior CVAs, pAF, HTN, HLD, DM, prior R CEA who underwent R TCAR on 11/15 given prior CEA. Overnight hehas been experiencing mild chest discomfort described as aching, located on the left side of his chest without radiation, and worse with certain positional changes. He has had chest discomfort like this off and on in the outpatient setting but this does not feel like when he had his CABG or prior PCI. ECG shows elevation in aVR with inferior and anterolateral depressions, which is a notable change from his prior ECG on admission. He had a pharm SPECT on 11/13 that was negative for infarction and showed no definite evidence of ischemia, though there was a moderate sized perfusion defect of the inferior and inferolateral segments that did normalize with attenuation correction. He is hemodynamically stable. He is on DAPT with aspirin and clopidogrel. ECG 11/17/23 2355: ECG 11/12/23 2111: - ECG concerning for ischemia, does not meet STEMI criteria - No indication for emergent coronary angiogram - Continue ASA and Plavix - Start heparin gtt, ACS protocol if no contraindications - Troponin now, 1hr, and 6hr - Serial ECGs overnight - Cardiology will follow Sathish Perez DO [employer] Supervisor * Nito Ordoñez OT - 11/17/2023 10:35 AM EDT Acute Occupational Therapy Treatment Prior to Admission AM-PAC Score: PRIOR LEVEL AM-PAC Activity Raw Score: 24 PRIOR LEVEL AM-PAC Mobility Raw Score: 24 Current AM-PAC score(s): CURRENT AM-PAC Activity Raw Score: 18 Based on the above AM-PAC score(s), and OT clinical judgment, discharge destination recommendation is: Long-Term Facility Barriers to discharge home: Patient needs assistance with ADLs, Patient needs assistance with IADLs(see note below), Patient needs assistance with self-care for medical condition (see note below) Mobility equipment available at home: 2 wheeled walker, rollator ADL equipment available at home: shower chair, grab bars, hand held shower hose, elevated toilet seat Equipment recommendations for discharge: to be determined Current therapy frequency recommendation(s) in acute: 5 times a week Precautions and Weightbearing Status: OT Existing Precautions/Restrictions: fall Telemetry Patient Safety Communication Prior to Visit: Nursing Subjective: Everyone keeps saying I can't go home but I know I can. Pain: General Pain Documentation (Adult, OB, Peds) Presence of Pain: denies pain/discomfort Presence of Pain Score (Auto-calculated): 0 DVPRS (Defense and Veterans Pain Rating Scale) DVPRS: Rest: 0- no pain DVPRS: Activity: 0- no pain Objective/Observation: Vitals/Vitals Responses to Treatment: Vitals WFL with no abnormal signs or symptoms reported or observed throughout session Cognition Overall Cognitive Status: Within Functional Limits Arousal/Alertness: Appropriate responses to stimuli Orientation Level: Oriented X4 Following Commands: Follows all commands and directions without difficulty Safety Judgment: Decreased awareness of need for safety, Decreased awareness of need for assistance Awareness of Errors: Decreased awareness of errors Deficits: Decreased awareness of deficits Attention Span: Appears intact Memory: Appears intact Problem Solving: Able to problem solve independently Cognition Comments: Pt pleasant and cooperative throughout session. ADL Assessment/Intervention: ADLs: Eating Assistance: Grooming Assistance: Minimal Grooming Location: standing at sink Grooming Deficit: Increased time to complete, Activity tolerance, Generalized weakness, Manipulation of items, Wash/dry hands, Wash/dry face, Oral care Grooming Skilled Rationale (Verbal/Tactile/Visual/Demonstration): Compensatory techniques, Technique of activity Bathing Assistance: UE Dressing Assistance: LE Dressing Assistance: Minimal LE Dressing Location: seated in chair LE Dressing Deficit: Don/doff R sock, Don/doff L sock, Increased time to complete, Activity tolerance, Generalized weakness LE Dressing Skilled Rationale (Verbal/Tactile/Visual/Demonstration): Compensatory techniques, Technique of activity Toilet Assistance: Set up supervision Toileting Location: toilet Toileting Deficit: Increased time to complete, Activity tolerance, Generalized weakness, Grab bar use, Perineal hygiene Toilet Skilled Rationale (Verbal/Tactile/Visual/Demonstration): Compensatory techniques, Technique of activity Toileting Intervention/Details: seated on commode emptied colostomy bag Extremity Assessments: See OT Evaluation flowsheet for Extremity Measurement updates. Balance: Sitting Balance Static Sitting-Level of Assistance: Supervision Dynamic Sitting-Level of Assistance: Standby Skilled Rationale: Verbal cues, Upright gaze/neck extension, Technique of activity, Initiation and execution of task Standing Balance Static Standing-Level of Assistance: Contact guard Dynamic Standing-Level of Assistance: Minimum assistance Standing-Balance Support: Gait belt, 2 wheeled walker Skilled Rationale: Verbal cues, Upright gaze/neck extension, Technique of activity, Initiation and execution of task, Cues for increased safety Standing Balance Skilled Intervention/Details: standing sink side x ~6:30 minutes; pt with 2 LOB requiring moderate assist to safe and controlled descent to commode. Skin and Edema: Mobility Assessment/Intervention: Transfer Assessment/Intervention: Sit to Stand Transfer [place] Level: Sit->Stand: minimum assist (75% patient effort) Assistive Device: Sit->Stand: gait belt, 2 wheeled walker, armed chair Skilled Rationale: Verbal cues, Energy conservation, Technique of activity Stand to Sit Transfer [place] Level: Stand->Sit: contact guard assist Assistive Device: Stand->Sit: gait belt, 2 wheeled walker, armed chair Skilled Rationale: Verbal cues, Controlled descent for sitting, Technique of activity, Cues for increased safety Toilet Transfer [place] Level: Toilet: minimum assist (75% patient effort) Assistive Device: Toilet: gait belt, 2 wheeled walker Skilled Rationale: Verbal cues, Controlled descent for sitting, Technique of activity, Cues for increased safety Functional Mobility: Functional Mobility [place] Level: Functional Mobility/Gait: minimum assist (75% patient effort) Assistive Device: Functional Mobility/Gait: 2 wheeled walker Functional Mobility Distance: Distance needed to access restroom Ambulation Distance (Feet): 30 Functional Mobility Deficits: Activity tolerance, Balance, Decreased step length, Follow safety/precautions, Generalized weakness, Shortness of breath, Slowed gait speed Functional Mobility Skilled Rationale: Walker management/safety, Verbal cues, Technique of activity, Cues for increased safety Outcome Score(s): CURRENT [facility] Daily Activity Inpatient Short Form Putting on/Taking Off Lower Body Clothin - A Little Assistance Bathin - A Lot of Assistance Toiletin - A Little Assistance Putting on/Taking Off Upper Body Clothin - A Little Assistance Groomin - A Little Assistance Eatin - No Assistance CURRENT [facility] Activity Raw Score: 18 CURRENT [facility] Activity Functional Limitation/Modifier: 46.65% Currently Impaired in Daily Activity- CK Interventions: Assessment & Plan: Pt making good progress towards established plan of care. Patient improving with grooming, lower body dressing, toileting, and functional transfers as seen above, however continues to be limited by endurance deficits, impaired balance/strength, and impaired mobility compared to baseline. Pt would benefit from additional OT services at this time, and at discharge to increase independence with functional mobility. Pt educated on self pacing on this date. Patient Instruction/Education this session: Learners: Patient Education provided: Role of this discipline, Plan of care Teaching method: Verbal Education/Instruction Plan for next session: continue to promote standing tolerance and balance Acute OT Goals Plan of Care by Nito Ordoñez OT at 11/17/2023 10:35 AM Version 1 of 1 Problem: OT - Transfers Goal: Transfers Toilet/ Bedside Commode - Patient will transfer to/from toilet with modified independence for improved ability to safely complete ADLs. Outcome: Progressing Problem: OT - Balance Goal: Balance - Standing - Patient will perform 7 minutes of functional task in standing with modified independence and good balance to promote safety and improved balance required for self-care activities. Outcome: Progressing Problem: OT - Vision Goal: Visual Scanning Functional Mobility - Patient will use appropriate visual scanning techniqueswith no cues during functional mobility to promote safety and success during daily routine without hitting items on his right. Outcome: Progressing OT treatment consisted of the following to work and progress towards the above goal(s): OT Evaluation and Treatment Time Self Care/Home Management (ADLs) Time Entry: 32 Treating Therapist: Nito Ordoñez OT Additional Details: OT Co-Eval/Treatment Information Co-evaluation/co-treatment performed?: No simultaneous skilled care performed PPE used during patient interaction: facemask, gloves Patient location at end of session: chair, lines intact, RN aware Alarms on at end of session: none altered Needs in reach. Time In: 1035 Time Out: 1107 Total Visit Time: 32 minutes Total Treatment Time (skilled, billable minutes): 32 minutes Upon discontinuation of Acute Care Occupational Therapy Services or patient discharge from the hospital this note represents the current Occupational Therapy Discharge Summary. * Jaleel Hitchcock V, CREDIT CONSULTANT-CLOUD DEVELOPER - 11/17/2023 10:34 AM EDT VASCULAR SURGERY PROGRESS NOTE HPI: Yony Vega is a 68 y.o. male who presented with symptomatic right carotid stenosis. Plan for right TCAR given previous R CEA Interval/24hrs: Hematoma noted to right neck overnight. Improved this morning. Glen accidentally dislodged. VSS. Hydra and labetalol x1 yesterday. Subjective: Reports pain well controlled. Denies chest pain, dyspnea, nausea, or vomiting. Reports baseline LUE weakness. Objective: Vital Signs: Temp: [97.2 F (36.2 C)-98.8 F (37.1 C)] 98.8 F (37.1 C) Pulse (Heart Rate): [57-71] 64 Resp Rate: [9-20] 13 BP: (106-179)/(51-82) 117/57 Arterial Line (1) BP: (126-168)/(46-71) 126/46 O2 Sat (%): [88 %-100 %] 95 % Fluid Management: I/O last 3 completed shifts: In: 2138.5 [I.V.:2038.5; IV Piggyback:100] Out: 695 [Urine:625] Wt Readings from Last 3 Encounters: 11/14/23 64.9 kg (143 lb) 08/29/23 67.4 kg (148 lb 11.2 oz) 07/19/23 67.1 kg (148 lb) Physical Exam: Gen: NAD, resting comfortably Neuro: CN II-XII grossly intact, no focal signs. Baseline LUE weakness Cardiac: RRR Lungs: no respiratory distress Abd: soft, NT, ND Incision: right neck incision soft with no hematoma. Surrounding skin ecchymotic and macerated. Left groin soft without hematoma Extremities: pink, warm, no new ulcers/wounds, no edema, 5+ motor, sensation intact in BLE Pulses: Bilateral DP/PT palpable Labs: WBC/Hgb/Hct/Plts: 7.19/10.9/33.4/222 (11/17 19) Na/K+/Phos/Mg/Ca: 139/3.9/4.3/1.2/8.1 (11/17 19) Bun/Creat/Cl/CO2/Glucose: 16/0.68/104/24/104 (11/17 19-11/16 558) Imaging: Assessment & Plan: Yony Vega is a 68 y.o. male who presented with symptomatic right carotid stenosis. Found to have Punctuate R frontal and R occipital stroke . Now on 1 Day Post-Op s/p Procedure(s) (LRB): PLACEMENT INTRAVASCULAR STENT CERVICAL CAROTID ARTERY OPEN (Right) on 11/16/[address] Ford. Diet: Low Carb Activity: Advance as tolerated DVT ppx: SCDs Bowel Regimen: Miralax and senna daily, PRN suppository Complexity. Hypomagnesemia - Continue to monitor and replete. Hypocalcemia - Continue to monitor and replete. Any conditions listed below are present on admission unless otherwise specified. . Right carotid stenosis Punctuate R frontal and R occipital stroke - S/p right TCAR - Continue 81 mg ASA and 75 mg Plavix daily Will also need anticoagulation for new afib. Eliquis check--> $0 - PATIENT will discharged on triple therapy for 1 month. Will stop PLAVIX after 30 days. Then Eliquis and ASA ongoing. - Continue crestor - Goal SBP 100-140 mmHg, PRNs available - Continue frequent neuro and vascular checks - PT/OT--> previously recommended SNF. Will re-evaluate post-op - Neurovasc signed off 11/16--> Cont Statin and aspirin. Follow-up with neurovasc in 1-2 weeks (ordered) Acute pain -Pain control: Scheduled tylenol PRN: oxycodone Acute blood loss anemia - Daily CBC, transfuse if less than 7 or symptomatic HLD (POA) - Continue 40mg crestor Lab Results Component Value Date CHOLESTEROL 150 11/13/2023 TRIG 279 (H) 11/13/2023 HDL 29 (L) 11/13/2023 LDLCALC 65 11/13/2023 HTN (POA) - SBP 100-140 - Cont home coreg andnorvasc Mood disorder, POA - Continue home duloxetine 60 mg DM, POA - Takes insulin lispro at home - Continue SSI here - Carb controlled diet GERD, POA - Takes omeprazole at home - Continue Protonix here CAD/CABG (2007, Stent placed in 2014, Bypass in 2007) - ASA and statin as above Paroxymal Atrial Fibrillation - Coreg as above - [id number] at 6 - Eliquis as above - Cardiology follow-up in 4-6 weeks. 30 day tele monitor at discharge The patient continues to require the followings lines, tubes and drains: PIVs These are required for the following reasons: Continuation of inpatient Care PLAN - Cont DAPT - Carb controlled diet - May check DOAC. Eliquis $0/month - PT/OT for dispo planning Dispo: Continue PCU care. Dispo pending . Therapy recommending SNF. EUSEBIO Teague 11/17/2023 Vascular Surgery Team: [facility] Floor patients: M-F 6am-5pm please call. Julianne # [id number]/Garrick #[id number]. After 5pm M-F and weekends please page the collection correspondent resident. Consults: please page the collection correspondent resident ICU patients: page collection correspondent fellow or chief resident. -Epic chat is not a reliable method of communication with a surgical service for urgent needs -The person who wrote this note may be off service, post call, or otherwise unavailable * Yousif Mera, PT - 11/17/2023 9:29 AM EDT Acute Physical Therapy Re-Evaluation Prior to Admission [facility] score(s): 24 Current AM-PAC score(s): CURRENT AM-PAC Mobility Raw Score: 15 Based on the above AM-PAC score(s) and PT clinical judgment, patient is a good candidate for discharge to Long-Term Facility Increased unsteadiness with ambulation and high risk of falling, which he has done at home recentlyon multiple occasions Barriers to discharge home: Lack of social support to meet functional needs at home, Patient needs assistance with functional mobility, Unsafe home environment given patient's current status (see note below) Mobility equipment available at home: 2 wheeled walker, rollator ADL equipment available at home: shower chair, grab bars, hand held shower hose, elevated toilet seat Equipment needed for discharge: to be determined Current therapy frequency recommendation in acute: Therapy Frequency: 5 times a week Activity Recommendations for outside of rehab session: up with assist, 2WW, ambulation with therapies only at this time due to increased unsteadiness PERIOPERATIVE SURGICAL HISTORY AND PHYSICAL UPDATE Pre-op Diagnoses: Carotid stenosis [I65.29] Procedure(s): PLACEMENT INTRAVASCULAR STENT CERVICAL CAROTID ARTERY OPEN Surgeon(s): Surgeons and Role: * Boom Ford MD - Primary * Iris Donnelly MD - Fellow Precautions and Weightbearing Status: Existing Precautions/Restrictions: cardiac, fall Telemetry Patient Safety Communication Prior to Visit: Nursing Subjective: Pt in bed, agreeable to PT. I feel like my left knee is buckling. Reports a hx of falls at home, works in the morning hours. Pain: General Pain Documentation (Adult, OB, Peds) Presence of Pain: complains of pain/discomfort Pain Location: (right neck and shoulder) Home Setting Residence: House Lives With: spouse (granddaughter) First floor setup: bedroom, tub shower Second floor setup: (1fight to basement, doesn't use) Number of stairs to enter home: 2 Mobility Equipment Available: 2 wheeled walker, rollator ADL Equipment Available: shower chair, grab bars, hand held shower hose, elevated toilet seat Home Environment Details: works out of the house, he is home alone and moving several hours a day (half dozen falls over the past month) Previous Level of Function Dominant Hand: Right Bed Mobility/Transfers: other (see comments) Assistive Device: 4 wheeled walker, 2 wheeled walker Level of Ambulation: household Prior Level of Function Details: able to do simple meal prep, 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, 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 Objective/Observation: Vitals/Vitals Responses to Treatment: WFL O2 Device: room air Cognition Overall Cognitive Status: Within Functional Limits Arousal/Alertness: Appropriate responses to stimuli Orientation Level: Oriented X4 Following Commands: Follows all commands and directions without difficulty Safety Judgment: Decreased awareness of need for assistance, Decreased awareness of need for safety Awareness of Errors: Assistance required to correct errors made, Assistance required to identify errors made Deficits: Decreased awareness of deficits Attention Span: Appears intact Memory: Appears intact Vision Screen Currently wearing corrective lenses: Yes Speech Speech: no gross deficits noted Hearing Hearing: no gross deficits noted Extremity Assessments: LUE Assessment Left UE Assessment Details: (residual weakness from prior CVA, exacerbated with activity) LLE Assessment LLE Assessment: (residual weakness from prior CVA, more prominent with fatigue walking) Sensation Overall Sensation: (neuropathy in feet) Skin Integrity Skin Integrity Description: (right TCAR incision and bruising) Mobility Assessment: Supine to Sit Mobility [place] Level: Supine->Sit: moderate assist (50% patient effort) Bed Features/Set-up: Supine->Sit: Head of bed elevated Skilled Rationale: Verbal cues, Tactile cues, Technique of activity, Breathing strategies Balance: Sitting Balance Static Sitting-Level of Assistance: Supervision Dynamic Sitting-Level of Assistance: Contact guard Skilled Rationale: Verbal cues, Full extension to upright positioning/posture, Upright gaze/neck extension, Finding/maintaining midline positioning Standing Balance Static Standing-Level of Assistance: Contact guard Dynamic Standing-Level of Assistance: (min/mod) Standing-Balance Support: 2 wheeled walker Skilled Rationale: Hand placement, Verbal cues, Tactile cues, Full extension to upright positioning/posture, Upright gaze/neck extension, Technique of activity, Finding/maintaining midline positioning Transfer Assessment: Sit to Stand Transfer [place] Level: Sit->Stand: minimum assist (75% patient effort) Assistive Device: Sit->Stand: 2 wheeled walker, rollator Skilled Rationale: Hand placement, Verbal cues, Tactile cues, Arm in arm, Facilitate anterior shift, Full extension to upright positioning/posture, Upright gaze/neck extension, Technique of activity,Breathing strategies Skilled Intervention/Details: Sit->Stand: x 2 from EOB, x 1 from rollator seat Stand to Sit Transfer [place] Level: Stand->Sit: minimum assist (75% patient effort) Skilled Rationale: Hand placement, Verbal cues, Tactile cues, Technique of activity, Controlled descent for sitting, Breathing strategies Skilled Intervention/Details: Stand->Sit: to rollator seat, to EOB, to chair Bed-Chair Transfer [place] Level: Bed<->Chair: minimum assist (75% patient effort) Assistive Device: Bed<->Chair: 2 wheeled walker Skilled Rationale: Verbal cues, Technique of activity, Cues for increased safety Gait/Functional Mobility: Gait Assessment [place] Level: Gait: minimum assist (75% patient effort) Physical Assist: Gait: 2 person assist Assistive Device: Gait: (started with rollator, transitioned to 2WW after noting increased unsteadiness with free moving rollator) Ambulation Distance (Feet): 70 (35 feet with rollator, 35 feet with 2WW) Gait Deviations Identified: decreased jomar, decreased step length, decreased stride length, flexed posture, foot drop/toe drag, increased postural sway, narrow base of support, knee buckling Gait Skilled Rationale: verbal, tactile, upright posture, improve foot placement, proximity of assistive device Skilled Intervention/Details - Gait: noting decreased left foot clearance with fatigue; had to use 2WW due to increased unsteadiness with rollator Outcome Score(s): CURRENT [facility] Basic Mobility Inpatient Short Form Turning over in bed: 3 - A Little Assistance Moving from lying on back to sittin - A Lot of Assistance Moving to and from bed to chair: 3 - A Little Assistance Sitting/standing from chair: 3 - A Little Assistance Walk in hospital room: 2 - A Lot of Assistance Climbing 3-5 steps with a railin - A Lot of Assistance CURRENT [facility] Mobility Raw Score: 15 CURRENT [facility] Mobility Functional Limitation: 57.70% Impaired in Basic Mobility Assessment & Plan: Patient was admitted for now s/p TCAR on 11/15 due to ongoing left sided deficits and seen for therapy evaluation related to mobility concerns, discharge needs. Exam findings include impairments in: Strength, Balance, Coordination, Sensation, Pain, Posture, Transfers, Gait/Locomotion, Circulation/vascular, Aerobic capacity/endurance. These impairments contribute to functional limitations including Increased fall risk, Decreased ambulation distance/endurance, Difficulty with transfers, Difficulty with bed mobility, Decreased functional mobility. Current clinical presentation is . Patient history factors impacting Plan Of Care include none. Patient will benefit from skilled physical therapy to address these impairments, functional limitations, and participation restrictions and has good rehab potential to achieve therapy goals. Planned Therapy Interventions: balance training, bed mobility training, endurance, functional activity tolerance, gait training, strengthening, transfer training, postural re-education Patient Instruction/Education this session: Learners: Patient Education provided: Adaptive equipment use, Balance training, Functional transfers, Discharge recommendations, Plan of care, Gait training safety Teaching method: Verbal Education/Instruction Learner response: Partially complete Plan for next session: progress balance, strength, ambulation Acute PT Goals Plan of Care by Yousif Mera PT at 11/17/2023 9:29 AM Version 1 of 1 Problem: PT - General Goals Goal: Supine <-> Sit Transfers - Patient will perform supine to/from sit transfers with standby assistance and without use of hospital bed features in order to improve functional mobility and safety. Outcome: Ongoing Goal: Sit <-> Stand Transfers - Patient will perform sit to/from stand transfers with standbyassistance and wheeled walker in order to improve functional mobility and safety. Outcome: Ongoing Goal: Ambulation - Patient will ambulate 150 feet with standby assistance and wheeled walker to improve ability to safely navigate home and community. Outcome: Ongoing Problem: PT - Outcome Measure Goals Goal: [facility] - Patient will demonstrate an improvement in AM-PAC Inpatient Mobility Short Form of atleast 4.5 points (MDC), in order to demonstrate an improvement in functional mobility. Outcome: Ongoing PT treatment consisted of the following to progress towards the above goal(s): PT Evaluation and Treatment Time PT Re-Evaluation Time Entry: 25 Gait Training Time Entry: 9 Evaluating Therapist: Yousif Mera PT Additional Details: PT Co-Eval/Treatment Information Co-evaluation/co-treatment performed?: No simultaneous skilled care performed Time In: 854 Time Out: 928 Total Visit Time: 34 minutes Total Treatment Time (skilled, billable minutes): 34 minutes PPE used during patient interaction: facemask, gloves Patient location at end of session: chair, RN aware Alarms on at end of session: none, RN aware Needs in reach. Upon discontinuation of Acute Care Physical Therapy Services or patient discharge from the hospitalthis note represents the current Physical Therapy Discharge Summary. * Hitesh Montanez APRN-CLOUD DEVELOPER - 11/17/2023 9:27 AM EDT NEUROVASCULAR STROKE SERVICE Daily Progress Note IDENTIFYING INFORMATION Yony Vega MR# [id number] 11/17/2023 HISTORY OF PRESENT ILLNESS Yony Vega is a 68 y.o. male with PMH significant for HTN, mood disorder, iron deficiency, DM,GERD, right-sided carotid endarterectomy (2008), CAD/CABG (2007, Stent placed in 2014, Bypass in 2007), strokes (2008, 2011 with residual L side decrease sensation), colorectal cancer (s/p chemo, 2 years ago in remission since Last May 2023) who presented with transient increased left sided numbness (lasted 10 minutes), Headache. He complains of 2 weeks of worsening weakness and dizziness (room spinning) and hallucinations. INTERVAL HISTORY 11/12: Plan for pharm nuclear stress test tomorrow, NPO at midnight, increased rosuvastatin to 40 mg,increased coreg to 12.5 mg, started on neuro scale heparin gtt, stopped plavix 11/13: CEA deferred for carotid stent placement tentatively tomorrow. Stop Heparin gtt. Load and restart Plavix with normal PTT. 11/14: 500mL fluid bolus ON for orthostatic hypotension. Plan for R carotid stent tomorrow. 11/15: Pt to OR for Carotid Stent 11/16: s/p TCAR of R carotid artery with stent placed. Exam stable PHYSICAL EXAM Gen: awake, alert, NAD HEENT: normocephalic, no scalp lesions or tenderness Neck: trachea midline No JVD CV: +S1S2, RRR, no m/r/g Lungs: LCTA bilaterally with equal chest rise Abd: soft, nontender, nondistended, +BS x4 quadrants Extrem: Warm and well perfused, no edema, 2+ pulses bilaterally Neuro: Oriented x4, CHAVIRA x 4, sensation decreased on left side (baseline) CN II - LHH CN II/III - PERRLA CN III/IV/ - EOMI CN V - Light touch to face intact in V1-3 CN VII - Facial movement intact and symmetrical bilaterally CN VIII - Hearing intact CN X - Cough present CN XI - muscular movement of shoulders and sternocleidomastoid muscles intact and equal bilaterally CN XII - midline protrusion of tongue MOTOR EXAMINATION: No drift NIHSS 11/17/2023 Provider NIH Stroke Scale NIH Interval (Provider): daily NIH Level of Conciousness (Provider): 0 NIH LOC Questions (Provider): 0 NIH LOC Commands (Provider): 0 NIH Best Gaze (Provider): 0 NIH Visual (Provider): 1 NIH Facial Palsy (Provider): 0 NIH Left Arm Motor (Provider): 0 NIH Right Arm Motor (Provider): 0 NIH Left Leg Motor (Provider): 0 NIH Right Leg Motor (Provider): 0 NIH Limb Ataxia (Provider): 0 NIH Sensory (Provider): 0 NIH Best Language (Provider): 0 NIH Dysarthria (Provider): 0 NIH Extinction and Inattention (Provider): 0 NIH Total Score (Provider): 1 ASSESSMENT AND PLAN Neuro: Punctuate R frontal and R occipital stroke CTH OSH: No acute findings CTA brain/neck OSH: <50% stenosis of bilateral carotid arteries. There is a short dissection of the R common carotid bulb extending to the proximal R ICA and proximal R ECA. MRI brain: Punctate acute to subacute infarcts in the right frontal lobe and right occipital lobe. Remote infarct in the medial right cerebellum. Multiple remote lacunar infarcts. Vasc Duplex carotid BL: R ICA 70-99% stenosis, L ICA 1-49% stenosis TTE: EF 58% Nuclear Stress Test 11/12: Negative for infarction with no evidence of stress- induced ischemia. LDL 109, A1c 7.8 -Stroke Etiology (TOAST Criteria): YOEL vs cardioembolic (new Afib) Recommendations: -Continue ASA 81 mg + Plavix 75 mg daily for R ICA stent -Per cardiology and vascular surgery team, with paroxysmal atrial fibrillation and CHADsVASC score 6 patient will require triple therapy. From a stroke standpoint ok for triple therapy (with ASA/Plavix + AC) for 30 days, then continue with one antiplatelet agent + AC afterwards -Continue home Rosuvastatin 40 mg daily for secondary stroke risk reduction, goal LDL <70 -Blood Pressure goal <180 -EM on discharge per cardiology to monitor atrial fibrillation burden -Vascular risk factor modifications and stroke education -PT/OT/ENTRY LEVEL MARKETING ASSISTANT evaluations -Please have Yony Vega follow up in Neurovascular clinic in 1-2 weeks (ordered). Ischemic Stroke Core Measures -NIHSS on admission 0. -Patient has been started on Mechanical (SCD's) and Pharmacological (SQ heparin/Lovenox) DVT prophylaxis. -Antiplatelet therapy has been initiated, Aspirin 81mg daily. -Anticoagulation therapy was/was not indicated for this patient, d/t pending workup -Patients LDL 109 and HgbA1c 7.8 were checked and the patient will be discharged on Rosuvastatin 40mg daily. -Dysphagia screening ordered, and will be completed prior to patient receiving oral intake. -Stroke education booklet has been ordered and will be provided by the RN that includes both written and verbal education to the patient and family regarding ischemic strokes. We have reviewed the patient's personal modifiable risk factors including: HTN, DM, stroke as well as education on reducingthese risk factors -Patient is being assessed for Rehab by PT/OT/Speech and PM&R if indicated. -No further recommendations from a Neurovascular standpoint. Neurovascular will sign off. Thank youfor allowing us to participate in the care of Yony Vega, if you have any further questions please contact the neurovascular team. Patient and plan discussed with Neurovascular attending Dr. Ammon Montanez, CREDIT CONSULTANT-CLOUD DEVELOPER 11/17/2023 10:23 AM VITAL SIGNS Temp: [97.2 F (36.2 C)-98.8 F (37.1 C)] 98.8 F (37.1 C) Pulse (Heart Rate): [57-71] 64 Resp Rate: [9-20] 13 BP: (106-179)/(51-82) 117/57 Arterial Line (1) BP: (126-168)/(46-71) 126/46 O2 Sat (%): [88 %-100 %] 95 % Oxygen Therapy: Oxygen Therapy O2 Sat (%): 95 % O2 Device: room air Intake/Output: Intake/Output Summary (Last 24 hours) at 11/17/2023 1023 Last data filed at 11/17/2023 0806 Gross per 24 hour Intake 2548.74 ml Output 420 ml Net 2128.74 ml LABS/CULTURES Lab Results Component Value Date WBC 7.19 11/17/2023 HGB 10.9 (L) 11/17/2023 HCT 33.4 (L) 11/17/2023 PLATELET 222 11/17/2023 MCV 84.6 11/17/2023 Lab Results Component Value Date SODIUM 139 11/17/2023 POTASSIUM 3.9 11/17/2023 CHLORIDE 104 11/17/2023 CO2 24 11/17/2023 BUN 16 11/17/2023 CREATSERUM 0.68 (L) 11/17/2023 GLUCOSE 104 (H) 11/17/2023 Lab Results Component Value Date CHOLESTEROL 150 11/13/2023 CHOLESTEROL 180 11/12/2023 TRIG 279 (H) 11/13/2023 TRIG 188 (H) 11/12/2023 HDL 29 (L) 11/13/2023 HDL 33 (L) 11/12/2023 LDLCALC 65 11/13/2023 LDLCALC 109 (H) 11/12/2023 Lab Results Component Value Date HGBA1C 7.8 (H) 11/13/2023 Lab Results Component Value Date ALBUMIN 3.8 11/13/2023 , No results found for: CPK, TROP IMAGING/DIAGNOSTIC STUDIES PV FLUOROSCOPY IN ROSS OR NUC MYOCARD PERF STRESS MIBI PHARM Final Result ECHOCARDIOGRAM Final Result MRI BRAIN WITH AND WITHOUT CONTRAST Final Result IMPRESSION: Punctate acute to subacute infarcts in the right frontal lobe and right occipital lobe. Remote infarct in the medial right cerebellum. Multiple remote lacunar infarcts. CHEST PA AND LATERAL 2 VIEWS Final Result IMPRESSION: No acute cardiopulmonary disease Indeterminate age nondisplaced fracture of the proximal left humerus, I suggest further evaluation with dedicated radiograph. DUPLEX CAROTID BILATERAL Final Result VASC DUPLEX CAROTID BILATERAL (Results Pending) MEDICATIONS Acetaminophen 650 mg Oral 4x daily Or Acetaminophen 650 mg Per NG tube 4x daily amLODIPine 5 mg Oral Daily aspirin 81 mg Oral Daily balsam-castor oil 1 Application Topical Q8H carveDILOL 12.5 mg Oral Q12H Clopidogrel 75 mg Oral Daily DULoxetine 60 mg Oral QHS faMOTIdine 20 mg Per NG tube Q12H Or faMOTIdine 20 mg Oral Q12H Gabapentin 300 mg Oral QHS [Held by provider] insulin glargine 40 Units Subcutaneous Q12H Insulin lispro Subcutaneous TID AC Pantoprazole 40 mg Oral Daily Polyethylene glycol 17 g Oral Daily Rosuvastatin 40 mg Oral Daily * Kristan Ernst MD - 11/16/2023 5:58 PM EDT Vascular Surgery Post-Op Check Mr. Medley is a 68 yo M s/p R TCAR. He is noted to have a right sided incisional hematoma measuring approximately 4 cm x 4 cm. He is tender to palpation. Incision with some ecchymosis. He denies voice changes, difficulty breathing or swallowing. He has a symmetrical smile and intact shoulder shrug. Motor 5+. Sensation intact except for residual decreased sensation to left hand. S/p within goal of 100 to 140 mmHg. Of note: At preop: left lip droop, left eyelid droop, left sluggish pupil. Plan: - Continue to monitor hematoma, night resident will recheck on patient tonight with plans to advance to clear liquid diet if hematoma remains stable - SBP goal 100 -140 mmHg - Continue DAPT with ASA 81 mg and Plavix 75 mg - Q2h neurochecks - HOB 30 degrees Hematoma evaluated with fellow, Dr. Donnelly. Discussed with Dr. Ford. Kristan Ernst MD Vascular Surgery PGY-3 [phone] * Becca Henry OT - 11/16/2023 10:35 AM EDT Occupational Therapy Attempt Note 11/16/2023 OT Therapy Completed: Attempted Attempted Reason: Patient is unavailable due to test/procedure (Off unit for right TCAR procedure.) Becca Henry OT Time In: 1035 Time Out: 1035 Total Visit Time: 0 minutes Total Treatment Time (skilled, billable minutes): 0 minutes * EUSEBIO Graff - 11/16/2023 7:07 AM EDT VASCULAR SURGERY PROGRESS NOTE HPI:Yony Vega is a 68 y.o. male with PMH CAD sp 5v CABG in 2007 on DAPT (held since initial presentation yesterday), recurrent CVA (2008, 2011, 2014 w residual left sided numbness/weakness), DM2, SANTANA sp right CEA (~2011, for similar CVA symptoms) and PAD sp multiple BLLE angioplasties (2015, 2016 for rest pain) who pw left-sided facial droop, worsening numbness, and dysarthria. Found to have acute to subacute right frontal lobe and right occipital lobe, remote infarct in the medial right cerebellum, and multiple remote lacunar infarcts. Carotid duplex with 70-99% right ICA stenosis, 1-49% left ICA stenosis. Subjective: No acute events. Denies pain. Denies further TIA or stroke symptoms. Reports residual LUE numbness.Stress test negative. TTE with normal EF, normal size and function. Objective: Vital Signs: Temp: [97.7 F (36.5 C)-98.8 F (37.1 C)] 97.8 F (36.6 C) Pulse (Heart Rate): [63-72] 66 Resp Rate: [10-44] 16 BP: (85-190)/(54-84) 182/80 O2 Sat (%): [91 %-97 %] 95 % Fluid Management: I/O last 3 completed shifts: In: 591 [P.O.:591] Out: 1700 [Urine:1100] Wt Readings from Last 3 Encounters: 11/14/23 64.9 kg (143 lb) 08/29/23 67.4 kg (148 lb 11.2 oz) 07/19/23 67.1 kg (148 lb) Physical Exam: Gen: NAD, resting comfortably Neuro: CN II-XII grossly intact, no focal signs Cardiac: NSR per tele Lungs: no respiratory distress on RA Abd: soft, non-tender, non-distended Extremities: pink, warm, no new ulcers/wounds, no edema, 5+ motor, sensation intact in BLE Pulses: Palpable Labs WBC/Hgb/Hct/Plts: 6.11/11.7/36.2/223 (11/15 434) Na/K+/Phos/Mg/Ca: 139/3.5/--/--/-- (11/15 434) Bun/Creat/Cl/CO2/Glucose: 16/0.72/102/27/128 (11/15 434-11/15 629) Ptt/Pt/Inr: 46.4/13.5/1.0 (11/15 14) Imaging: Assessment: Yony Vega is a 68 y.o. male who presented with symptomatic right carotid stenosis. Plan for right TCAR given previous R CEA Plan: - NPO since midnight - Type and screen active - Consent on chart - Remains on aspirin and plavix. P2Y12 169 - Heparin held with concern for hemorraghic conversions of CVS - proceed to OR for RIGHT TCAR with Dr. Ford Dispo: Pending clinical course EUSEBIO Teague 11/16/2023 Team: Julianne * EUSEBIO Field - 11/16/2023 7:03 AM EDT NEUROVASCULAR STROKE SERVICE Daily Progress Note IDENTIFYING INFORMATION Yony Vega MR# [id number] 11/16/2023 HISTORY OF PRESENT ILLNESS Yony Vega is a 68 y.o. male with PMH significant for HTN, mood disorder, iron deficiency, DM,GERD, right-sided carotid endarterectomy (2008), CAD/CABG (2007, Stent placed in 2014, Bypass in 2007), strokes (2008, 2011 with residual L side decrease sensation), colorectal cancer (s/p chemo, 2 years ago in remission since Last May 2023) who presented with transient increased left sided numbness (lasted 10 minutes), Headache. He complains of 2 weeks of worsening weakness and dizziness (room spinning) and hallucinations. INTERVAL HISTORY 11/12: Plan for pharm nuclear stress test tomorrow, NPO at midnight, increased rosuvastatin to 40 mg,increased coreg to 12.5 mg, started on neuro scale heparin gtt, stopped plavix 11/13: CEA deferred for carotid stent placement tentatively tomorrow. Stop Heparin gtt. Load and restart Plavix with normal PTT. 11/14: 500mL fluid bolus ON for orthostatic hypotension. Plan for R carotid stent tomorrow. 11/15: Pt to OR for Carotid Stent PHYSICAL EXAM Gen: awake, alert, NAD HEENT: normocephalic, no scalp lesions or tenderness Neck: trachea midline No JVD CV: +S1S2, RRR, no m/r/g Lungs: LCTA bilaterally with equal chest rise Abd: soft, nontender, nondistended, +BS x4 quadrants Extrem: Warm and well perfused, no edema, 2+ pulses bilaterally Neuro: Oriented x4, CHAVIRA x 4, sensation decreased on left side (baseline) CN II - All visual campbell intact CN II/III - PERRLA CN III/IV/ - EOMI CN V - Light touch to face intact in V1-3 CN VII - Facial movement intact and symmetrical bilaterally CN VIII - Hearing intact CN X - Cough present CN XI - muscular movement of shoulders and sternocleidomastoid muscles intact and equal bilaterally CN XII - midline protrusion of tongue MOTOR EXAMINATION: No drift NIHSS 11/16/2023 Provider NIH Stroke Scale NIH Interval (Provider): daily NIH Level of Conciousness (Provider): 0 NIH LOC Questions (Provider): 0 NIH LOC Commands (Provider): 0 NIH Best Gaze (Provider): 0 NIH Visual (Provider): 0 NIH Facial Palsy (Provider): 0 NIH Left Arm Motor (Provider): 0 NIH Right Arm Motor (Provider): 0 NIH Left Leg Motor (Provider): 0 NIH Right Leg Motor (Provider): 0 NIH Limb Ataxia (Provider): 0 NIH Sensory (Provider): 0 NIH Best Language (Provider): 0 NIH Dysarthria (Provider): 0 NIH Extinction and Inattention (Provider): 0 NIH Total Score (Provider): 0 ASSESSMENT AND PLAN Neuro: Punctuate R frontal and R occipital stroke CTH OSH: No acute findings CTA brain/neck OSH: <50% stenosis of bilateral carotid arteries. There is a short dissection of the R common carotid bulb extending to the proximal R ICA and proximal R ECA. MRI brain: Punctate acute to subacute infarcts in the right frontal lobe and right occipital lobe. Remote infarct in the medial right cerebellum. Multiple remote lacunar infarcts. Vasc Duplex carotid BL: R ICA 70-99% stenosis, L ICA 1-49% stenosis TTE: EF 58% Nuclear Stress Test 11/12: Negative for infarction with no evidence of stress- induced ischemia. LDL 109, A1c 7.8 -Stroke Etiology (TOAST Criteria): cardio embolic versus YOEL -Antiplatelet plan: home Aspirin 81 mg and plavix 75 mg. Pt was on Heparin gtt until 11/13 which was stopped and Plavix was loaded and restarted -Statin therapy: Rosuvastatin 40 mg -Blood Pressure goal: <180 - EM on discharge per cardiology to monitor atrial fibrillation burden Cardiology and Vascular surgery consulted. Per cardiology recs,nuclear pharmacologic stress testing for ischemic evaluation (ordered) tentative plan 11/13 Per PVD,Tentative plan for right carotid stent 11/14 pending completion of cardiac risk stratification based on cardiology recommendations Ischemic Stroke Core Measures -NIHSS on admission 0. -Patient has been started on Mechanical (SCD's) and Pharmacological (SQ heparin/Lovenox) DVT prophylaxis. -Antiplatelet therapy has been initiated, Aspirin 81mg daily. -Anticoagulation therapy was/was not indicated for this patient, d/t pending workup -Patients LDL 109 and HgbA1c 7.8 were checked and the patient will be discharged on Rosuvastatin 40mg daily. -Dysphagia screening ordered, and will be completed prior to patient receiving oral intake. -Stroke education booklet has been ordered and will be provided by the RN that includes both written and verbal education to the patient and family regarding ischemic strokes. We have reviewed the patient's personal modifiable risk factors including: HTN, DM, stroke as well as education on reducingthese risk factors -Patient is being assessed for Rehab by PT/OT/Speech and PM&R if indicated. Other problems: Complexity. Any conditions listed below are present on admission unless otherwise specified. . Other problems: HTN, POA - Takes home coreg 6.25, increased to 12.5 mg 11/12 per cardiac rec - Resume home Amlodipine 5mg 11/14 Mood disorder, POA - Continue home duloxetine 60 mg DM, POA - Takes insulin lispro at home - Continue SSI here - Carb controlled diet GERD, POA - Takes omeprazole at home - Continue Protonix here Right-sided carotid endarterectomy (2008), Strokes (2008, 2011 with residual L side decrease sensation) - Vascular surgery following, plan for R carotid stent 11/14 - Continue home ASA 81, stop Heparin gtt and load Plavix then continue daily dose of 75mg - Plan to start DOAC after stent placement, then triple therapy for 30 days, then AC with Antiplatelet monotherapy thereafter - Increase home rosuvastatin 20 mg to 40 mg 11/13 CAD/CABG (2007, Stent placed in 2014, Bypass in 2007) - Cardiology following - Continue home ASA 81 - Increase home rosuvastatin 20 mg to 40 mg 11/13 Paroxymal Atrial Fibrillation - Coreg as above - Cardiology consulted, [id number] at 6, per cardiology recs started on neuro scale hep gtt 11/12 with Aspirin 81 mg, stopped plavix 11/12. Heparin gtt stopped 11/13, plan to load Plavix with declining PTT for stent tomorrow. Plan ultimately for ASA/Plavix/DOAC triple therapy for 30 days given pt's Chadsvasc of 6 and recommendation for DAPT from Vascular surgery team. Disposition: Yony Vega will likely be discharged TBD pending workup Brian Self, CREDIT CONSULTANT-CLOUD DEVELOPER 11/16/2023 7:03 AM VITAL SIGNS Temp: [97.7 F (36.5 C)-98.8 F (37.1 C)] 97.8 F (36.6 C) Pulse (Heart Rate): [63-72] 66 Resp Rate: [10-44] 16 BP: (85-190)/(54-84) 182/80 O2 Sat (%): [91 %-97 %] 95 % Oxygen Therapy: Oxygen Therapy O2 Sat (%): 95 % O2 Device: room air Intake/Output: Intake/Output Summary (Last 24 hours) at 11/16/2023 0703 Last data filed at 11/16/2023 0629 Gross per 24 hour Intake 591 ml Output 1700 ml Net -1109 ml LABS/CULTURES Lab Results Component Value Date WBC 6.11 11/16/2023 HGB 11.7 (L) 11/16/2023 HCT 36.2 (L) 11/16/2023 PLATELET 223 11/16/2023 MCV 84.6 11/16/2023 Lab Results Component Value Date SODIUM 139 11/16/2023 POTASSIUM 3.5 11/16/2023 CHLORIDE 102 11/16/2023 CO2 27 11/16/2023 BUN 16 11/16/2023 CREATSERUM 0.72 11/16/2023 GLUCOSE 128 (H) 11/16/2023 Lab Results Component Value Date CHOLESTEROL 150 11/13/2023 CHOLESTEROL 180 11/12/2023 TRIG 279 (H) 11/13/2023 TRIG 188 (H) 11/12/2023 HDL 29 (L) 11/13/2023 HDL 33 (L) 11/12/2023 LDLCALC 65 11/13/2023 LDLCALC 109 (H) 11/12/2023 Lab Results Component Value Date HGBA1C 7.8 (H) 11/13/2023 Lab Results Component Value Date ALBUMIN 3.8 11/13/2023 , No results found for: CPK, TROP IMAGING/DIAGNOSTIC STUDIES NUC MYOCARD PERF STRESS MIBI PHARM Final Result ECHOCARDIOGRAM Final Result MRI BRAIN WITH AND WITHOUT CONTRAST Final Result IMPRESSION: Punctate acute to subacute infarcts in the right frontal lobe and right occipital lobe. Remote infarct in the medial right cerebellum. Multiple remote lacunar infarcts. CHEST PA AND LATERAL 2 VIEWS Final Result IMPRESSION: No acute cardiopulmonary disease Indeterminate age nondisplaced fracture of the proximal left humerus, I suggest further evaluation with dedicated radiograph. DUPLEX CAROTID BILATERAL Final Result PV FLUOROSCOPY IN ROSS OR (Results Pending) MEDICATIONS amLODIPine 5 mg Oral Daily aspirin 81 mg Oral Daily carveDILOL 12.5 mg Oral Q12H Clopidogrel 75 mg Oral Daily DULoxetine 60 mg Oral QHS Gabapentin 300 mg Oral QHS [Held by provider] insulin glargine 40 Units Subcutaneous Q12H Insulin lispro Subcutaneous 4x daily w/meals, HS Lactated ringers 500 mL Intravenous Once Pantoprazole 40 mg Oral Daily Rosuvastatin 40 mg Oral Daily Senna 8.6 mg Oral QAM Or Senna 8.6 mg Per NG tube QAM * Donna Bailey, BALTAZAR-CLOUD DEVELOPER - 11/15/2023 8:29 AM EDT General Cardiology Consult SIGN OFF Thank you for allowing us to participate in the care of Yony Eduardo Vega. Our consult team will signoff today, 11/15/23. For our full impression and recommendations, please see our most recent consult / progress note. Regarding follow up, please note the following: Follow Up Appointments Patient requires follow up with our specialty in 4-6 weeks with the next available provider Follow Up Testing Please ensure the following labs and/or images are obtained: Mobile Cardiac Telemetry (MCT) Medication Changes No changes were made to patient's cardiovascular medications. If you have any further questions regarding the care of this patient, please do not hesitate to reach out to our team. EUSEBIO Guadalupe 11/15/23 8:29 AM * EUSEBIO Guadalupe - 11/15/2023 8:03 AM EDT CARDIOLOGY CONSULT PROGRESS NOTE Cardiology consult on 11/13/2023 Hx CAD s/p stent, CABG on stroke service, request per vascular surgery for upcoming CEA v stent HPI I saw Mr. Yony Vega in follow-up on 11/15/2023. He is a 68 y.o. male with a history of HTN, mood disorder, iron deficiency, DM, GERD, right-sided carotid endarterectomy (2008), CAD/CABG (2007, Stent placed in 2014, Bypass in 2007), strokes (2008, 2011 with residual L side decrease sensation), colorectal cancer (s/p chemo, 2 years ago in remission since Last May 2023) who presented on 11/12/2023 with transient increased left sided numbness (lasted 10 minutes), Headache. ASSESSMENT AND PLAN Lisbeth Operative Risk Assessment - CEA deferred for a carotid stent placement - Nuclear stress test today was negative for infarction & with no evidence of stress induced ischemia -TTE on 11/12 reported normal regional wall motion & global systolic function, LVEF 58%; normal RV size & function, RA normal - Patient denies any chest pain - His RCRI score is 3 points or 15% 30 day risk of , [place] or cardiac arrest- based on his nuclear stress test, no additional testing is needed. He can proceed with his CEA vs stent CAD, s/p CABG 2007, s/p PCI with stent 2014 - Denies chest pain - Nuclear stress test was negative for ischemia or infarction - Continue ASA, coreg 12.5 mg BID, Rosuvastatin Hyperlipidemia: lipid profile 11/13/23: TC 150, HDL 29, TG 279, LDL 65 - Continue Rosuvastatin 40 mg daily PAF - Remains in SR on telemetry. Continue coreg - [id number] score of 6- recommend IV heparin - would bridge to DOAC when okay per surgery - Mobile renal dietitian at discharge to assess AF burden - Follow up with OP cardiology in 4-6 weeks HTN - Hypertensive today on exam - Continue coreg 12.5 mg BID - Recommend starting amlodipine 5 mg daily Other problems H/O CVA Left sided numbness/headache Right CEA- on ASA & Plavix INTERVAL HISTORY/REVIEW OF SYSTEMS Overnight, the patient had no acute issues. He is scheduled for a R CEA with stent. Review of Systems Constitutional: Positive for malaise/fatigue. Eyes: Negative for visual disturbance. Cardiovascular: Negative for chest pain, leg swelling, orthopnea and palpitations. Respiratory: Negative for cough, shortness of breath and wheezing. Gastrointestinal: Negative for bloating, abdominal pain and nausea. Neurological: Negative for dizziness and headaches. PHYSICAL EXAM BP 178/84 (BP Location: Left arm, BP Position: Lying) Pulse 65 Temp 97.9 F (36.6 C) (Oral) Resp 12 Ht 1.676 m (5' 6) Wt 64.9 kg (143 lb) SpO2 95% BMI 23.08 kg/m Smoking Status Never Constitutional: Awake, pleasant male, cooperative and in no acute distress HEENT: Normocephalic atraumatic, anicteric sclerae, neck supple, + right carotid bruit present, no carotid bruit left Chest: Respiratory effort unlabored, lung sounds clear bilaterally, on room air Cardiovascular: No JVD appreciated. Normal rate & regular rhythm; S1 normal, S2 normal,no gallop, no friction rub or murmur heard Abdomen: Soft, non-tender, non-distended. +BS. Extremities: No peripheral edema. No stasis dermatitis. Radial pulses 2+ bilaterally, dorsalis pedis and posterior tibial pulses are 2+ bilaterally. Neurological: Alert and oriented to person, place and time. Skin: Warm, dry. No cyanosis. Nails show no clubbing. CARDIOVASCULAR IMAGING/DATA Nuclear Stress Test 11/14/2023 Conclusion Pharmacologic stress test is negative for remote infarction and with no definite evidence for stress induced ischemia. Nuclear perfusion images Resting Images: Normal pattern of perfusion to all segments of the ventricle. No evidence of infarction Post Stress Images: Perfusion pattern post stress shows a mild perfusion defect to a moderate sizedsegment of the inferior and inferolateral segments which normalizes with attenuation correction suggesting artifact. Clinical correlation, given the heavy coronary calcium load and reduced ejection fr action, with the pre-test probability of disease, are required. Left ventricular systolic function is mildly reduced. (ejection fraction 43%). ECG / stress portion of the exam Baseline ECG: sinus rhythm with anterior t-wave inversion Pharmacologic stress ECG is negative for ischemia at achieved heart rate. Dysrhythmias with stress: None Hemodynamic response to stress (heart rate & blood pressure): Normal Cardiac Symptoms / Reason for stopping test No symptoms to suggest ischemia Study stopped due to completion of protocol CT portion of the scan CT images were obtained for attenuation correction purposes only. Diagnostic quality of the images is limited. Coronary artery calcification: extensive and involving all vessels ECHOCARDIOGRAM 11/13/2023 (Final) Interpretation Summary Left ventricular size, regional wall motion and global systolic function are normal. Ejection fraction 58% Left atrium measures normal in size Right ventricle is normal in size and function. Estimated right ventricular/pulmonary artery systolic pressure is within normal limits Right atrium measures normal in size Valve structures are consistent with age. Mitral valve regurgitation, mild Aortic valve regurgitation (probable), trace Further study details described below 24 hour telemetry (personally reviewed): SB to SR ADDITIONAL DATA REVIEWED Intake/Output Summary (Last 24 hours) at 11/15/2023 0804 Last data filed at 11/15/2023 0548 Gross per 24 hour Intake 150 ml Output 1055 ml Net -905 ml Temp: [97.9 F (36.6 C)-98.5 F (36.9 C)] 97.9 F (36.6 C) Pulse (Heart Rate): [61-68] 65 Resp Rate: [12-22] 12 BP: (95-178)/(50-84) 178/84 O2 Sat (%): [93 %-97 %] 95 % Weight: [64.9 kg (143 lb)] 64.9 kg (143 lb) Oxygen Therapy O2 Sat (%): 95 % O2 Device: room air Flow (L/min): 0 Body mass index is 23.08 kg/m . LABS Bun/Creat/Cl/CO2/Glucose: 20/0.74/103/27/115 (11/14 26-11/15 619) Na/K+/Phos/Mg/Ca: 139/3.5/--/--/-- (11/14 26) WBC/Hgb/Hct/Plts: 5.80/11.3/35.9/211 (11/14 0027) No results found for: BNP Lab Results Component Value Date CHOLESTEROL 150 11/13/2023 TRIG 279 (H) 11/13/2023 HDL 29 (L) 11/13/2023 LDLCALC 65 11/13/2023 CURRENT MEDICATIONS: amLODIPine 5 mg Oral Daily aspirin 81 mg Oral Daily carveDILOL 12.5 mg Oral Q12H Clopidogrel 75 mg Oral Daily DULoxetine 60 mg Oral QHS Gabapentin 300 mg Oral QHS insulin glargine 40 Units Subcutaneous Q12H Insulin lispro Subcutaneous 4x daily w/meals, HS Pantoprazole 40 mg Oral Daily Rosuvastatin 40 mg Oral Daily Senna 8.6 mg Oral QAM Or Senna 8.6 mg Per NG tube QAM [id number] Score for Atrial Fibrillation Stroke Risk Age in Years: 65-74 Sex: Male CHF History: No Hypertension History: Yes Stroke/TIA/Thromboembolism History: Yes Vascular Disease History: Yes Diabetes History: Yes [id number] Score: 6 [id number] Score for Atrial Fibrillation Stroke Risk Age in Years: 65-74 Sex: Male CHF History: No Hypertension History: Yes Stroke/TIA/Thromboembolism History: Yes Vascular Disease History: Yes Diabetes History: Yes [id number] Score: 6 Complexity. Any conditions listed below are present on admission unless otherwise specified. . Thank you for this consult. Please call with questions. We will continue to follow along. EUSEBIO Guadalupe Cardiology Consult Service Phone: [phone] * EUSEBIO Field - 11/15/2023 7:50 AM EDT NEUROVASCULAR STROKE SERVICE Daily Progress Note IDENTIFYING INFORMATION Yony Vega MR# [id number] 11/15/2023 HISTORY OF PRESENT ILLNESS Yony Vega is a 68 y.o. male with PMH significant for HTN, mood disorder, iron deficiency, DM,GERD, right-sided carotid endarterectomy (2008), CAD/CABG (2007, Stent placed in 2014, Bypass in 2007), strokes (2008, 2011 with residual L side decrease sensation), colorectal cancer (s/p chemo, 2 years ago in remission since Last May 2023) who presented with transient increased left sided numbness (lasted 10 minutes), Headache. He complains of 2 weeks of worsening weakness and dizziness (room spinning) and hallucinations. INTERVAL HISTORY 11/12: Plan for pharm nuclear stress test tomorrow, NPO at midnight, increased rosuvastatin to 40 mg,increased coreg to 12.5 mg, started on neuro scale heparin gtt, stopped plavix 11/13: CEA deferred for carotid stent placement tentatively tomorrow. Stop Heparin gtt. Load and restart Plavix with normal PTT. 11/14: 500mL fluid bolus ON for orthostatic hypotension. Plan for R carotid stent tomorrow. PHYSICAL EXAM Gen: awake, alert, NAD HEENT: normocephalic, no scalp lesions or tenderness Neck: trachea midline No JVD CV: +S1S2, RRR, no m/r/g Lungs: LCTA bilaterally with equal chest rise Abd: soft, nontender, nondistended, +BS x4 quadrants Extrem: Warm and well perfused, no edema, 2+ pulses bilaterally Neuro: Oriented x4, CHAVIRA x 4, sensation decreased on left side (baseline) CN II - All visual campbell intact CN II/III - PERRLA CN III/IV/ - EOMI CN V - Light touch to face intact in V1-3 CN VII - Facial movement intact and symmetrical bilaterally CN VIII - Hearing intact CN X - Cough present CN XI - muscular movement of shoulders and sternocleidomastoid muscles intact and equal bilaterally CN XII - midline protrusion of tongue MOTOR EXAMINATION: No drift NIHSS 11/15/2023 Provider NIH Stroke Scale NIH Interval (Provider): daily NIH Level of Conciousness (Provider): 0 NIH LOC Questions (Provider): 0 NIH LOC Commands (Provider): 0 NIH Best Gaze (Provider): 0 NIH Visual (Provider): 0 NIH Facial Palsy (Provider): 0 NIH Left Arm Motor (Provider): 0 NIH Right Arm Motor (Provider): 0 NIH Left Leg Motor (Provider): 0 NIH Right Leg Motor (Provider): 0 NIH Limb Ataxia (Provider): 0 NIH Sensory (Provider): 0 NIH Best Language (Provider): 0 NIH Dysarthria (Provider): 0 NIH Extinction and Inattention (Provider): 0 NIH Total Score (Provider): 0 ASSESSMENT AND PLAN Neuro: Punctuate R frontal and R occipital stroke CTH OSH: No acute findings CTA brain/neck OSH: <50% stenosis of bilateral carotid arteries. There is a short dissection of the R common carotid bulb extending to the proximal R ICA and proximal R ECA. MRI brain: Punctate acute to subacute infarcts in the right frontal lobe and right occipital lobe. Remote infarct in the medial right cerebellum. Multiple remote lacunar infarcts. Vasc Duplex carotid BL: R ICA 70-99% stenosis, L ICA 1-49% stenosis TTE: EF 58% Nuclear Stress Test 11/12: Negative for infarction with no evidence of stress- induced ischemia. LDL 109, A1c 7.8 -Stroke Etiology (TOAST Criteria): cardio embolic versus YOEL -Antiplatelet plan: home Aspirin 81 mg and plavix 75 mg. Pt was on Heparin gtt until 11/13 which was stopped and Plavix was loaded and restarted -Statin therapy: Rosuvastatin 40 mg -Blood Pressure goal: <180 - EM on discharge per cardiology to monitor atrial fibrillation burden Cardiology and Vascular surgery consulted. Per cardiology recs,nuclear pharmacologic stress testing for ischemic evaluation (ordered) tentative plan 11/13 Per PVD,Tentative plan for right carotid stent 11/14 pending completion of cardiac risk stratification based on cardiology recommendations Ischemic Stroke Core Measures -NIHSS on admission 0. -Patient has been started on Mechanical (SCD's) and Pharmacological (SQ heparin/Lovenox) DVT prophylaxis. -Antiplatelet therapy has been initiated, Aspirin 81mg daily. -Anticoagulation therapy was/was not indicated for this patient, d/t pending workup -Patients LDL 109 and HgbA1c 7.8 were checked and the patient will be discharged on Rosuvastatin 40mg daily. -Dysphagia screening ordered, and will be completed prior to patient receiving oral intake. -Stroke education booklet has been ordered and will be provided by the RN that includes both written and verbal education to the patient and family regarding ischemic strokes. We have reviewed the patient's personal modifiable risk factors including: HTN, DM, stroke as well as education on reducingthese risk factors -Patient is being assessed for Rehab by PT/OT/Speech and PM&R if indicated. Other problems: Complexity. Any conditions listed below are present on admission unless otherwise specified. . Other problems: HTN, POA - Takes home coreg 6.25, increased to 12.5 mg 11/12 per cardiac rec - Resume home Amlodipine 5mg 11/14 Mood disorder, POA - Continue home duloxetine 60 mg DM, POA - Takes insulin lispro at home - Continue SSI here - Carb controlled diet GERD, POA - Takes omeprazole at home - Continue Protonix here Right-sided carotid endarterectomy (2008), Strokes (2008, 2011 with residual L side decrease sensation) - Vascular surgery following, plan for R carotid stent 11/14 - Continue home ASA 81, stop Heparin gtt and load Plavix then continue daily dose of 75mg - Plan to start DOAC after stent placement, then triple therapy for 30 days, then AC with Antiplatelet monotherapy thereafter - Increase home rosuvastatin 20 mg to 40 mg 11/13 CAD/CABG (2007, Stent placed in 2014, Bypass in 2007) - Cardiology following - Continue home ASA 81 - Increase home rosuvastatin 20 mg to 40 mg 11/13 Paroxymal Atrial Fibrillation - Coreg as above - Cardiology consulted, [id number] at 6, per cardiology recs started on neuro scale hep gtt 11/12 with Aspirin 81 mg, stopped plavix 11/12. Heparin gtt stopped 11/13, plan to load Plavix with declining PTT for stent tomorrow. Plan ultimately for ASA/Plavix/DOAC triple therapy for 30 days given pt's Chadsvasc of 6 and recommendation for DAPT from Vascular surgery team. Disposition: Yony Vega will likely be discharged TBD pending workup Brian Self, BALTAZAR-CLOUD DEVELOPER 11/15/2023 7:50 AM VITAL SIGNS Temp: [97.9 F (36.6 C)-98.5 F (36.9 C)] 97.9 F (36.6 C) Pulse (Heart Rate): [61-68] 65 Resp Rate: [12-22] 12 BP: (95-178)/(50-84) 178/84 O2 Sat (%): [93 %-97 %] 95 % Weight: [64.9 kg (143 lb)] 64.9 kg (143 lb) Oxygen Therapy: Oxygen Therapy O2 Sat (%): 95 % O2 Device: room air Flow (L/min): 0 Oxygen Delivery/Consumption Hemodynamics BSA (Calculated - sq m): 1.73 m2 Intake/Output: Intake/Output Summary (Last 24 hours) at 11/15/2023 0750 Last data filed at 11/15/2023 0548 Gross per 24 hour Intake 150 ml Output 1055 ml Net -905 ml LABS/CULTURES Lab Results Component Value Date WBC 5.80 11/15/2023 HGB 11.3 (L) 11/15/2023 HCT 35.9 (L) 11/15/2023 PLATELET 211 11/15/2023 MCV 84.5 11/15/2023 Lab Results Component Value Date SODIUM 139 11/15/2023 POTASSIUM 3.5 11/15/2023 CHLORIDE 103 11/15/2023 CO2 27 11/15/2023 BUN 20 11/15/2023 CREATSERUM 0.74 11/15/2023 GLUCOSE 115 (H) 11/15/2023 Lab Results Component Value Date CHOLESTEROL 150 11/13/2023 CHOLESTEROL 180 11/12/2023 TRIG 279 (H) 11/13/2023 TRIG 188 (H) 11/12/2023 HDL 29 (L) 11/13/2023 HDL 33 (L) 11/12/2023 LDLCALC 65 11/13/2023 LDLCALC 109 (H) 11/12/2023 Lab Results Component Value Date HGBA1C 7.8 (H) 11/13/2023 Lab Results Component Value Date ALBUMIN 3.8 11/13/2023 , No results found for: CPK, TROP IMAGING/DIAGNOSTIC STUDIES NUC MYOCARD PERF STRESS MIBI PHARM Final Result ECHOCARDIOGRAM Final Result MRI BRAIN WITH AND WITHOUT CONTRAST Final Result IMPRESSION: Punctate acute to subacute infarcts in the right frontal lobe and right occipital lobe. Remote infarct in the medial right cerebellum. Multiple remote lacunar infarcts. CHEST PA AND LATERAL 2 VIEWS Final Result IMPRESSION: No acute cardiopulmonary disease Indeterminate age nondisplaced fracture of the proximal left humerus, I suggest further evaluation with dedicated radiograph. DUPLEX CAROTID BILATERAL Final Result MEDICATIONS amLODIPine 5 mg Oral Daily aspirin 81 mg Oral Daily carveDILOL 12.5 mg Oral Q12H Clopidogrel 75 mg Oral Daily DULoxetine 60 mg Oral QHS Gabapentin 300 mg Oral QHS insulin glargine 40 Units Subcutaneous Q12H Insulin lispro Subcutaneous 4x daily w/meals, HS Pantoprazole 40 mg Oral Daily Rosuvastatin 40 mg Oral Daily Senna 8.6 mg Oral QAM Or Senna 8.6 mg Per NG tube QAM Associated attestation - Joselito Mora MD - 11/15/2023 8:35 PM EDT Attending Physician Note (GC) I interviewed and examined this patient with the AIRLINE STATION AGENT. I reviewed the history and exam detailed in the note. I agree with the medical decision making with the following comment(s): Multifocal infarcts likely due to AF, but with one infarct in carotid territory with severe stenosis s/p prior CEA. On DAPT, awaiting SANTANA tomrorow. Will plan for apixban + DAPT x one month and then transition to a singleanti-platelet agent. * Kurtis Moya - 11/14/2023 4:34 PM EDT This patient was anointed and provided communion by beef cattle grazier, Father Eugenio. Chaplains are available 27/02. For urgent needs in [facility], please page [phone]. For urgent needs in , [facility], [place], Marc, or [place], please page [phone]. Father Zachdy Department of Alarm Installation Technician and [facility] [phone] 11/14/23 1415 Clinical Encounter Type Visited With Patient Visit Type Introduction Pastoral Time Spent 15 min Hoahaoism Encounters Hoahaoism Needs Sacramental Interventions Provided Active listening;Prayer;Supportive presence Sacrament [place];Communion Sacramental Encounters Sacrament of Sick-Anointing Anointed * Diamond Duvall, PT - 11/14/2023 2:18 PM EDT Acute Physical Therapy Treatment Prior to Admission [facility] score(s): PRIOR LEVEL AM-PAC Mobility Raw Score: 24 PRIOR LEVEL AM-PAC Activity Raw Score: 24 Current AM-PAC score(s): CURRENT AM-PAC Mobility Raw Score: 18 Based on the above AM-PAC score(s) and PT clinical judgment, patient is a good candidate for discharge to Long-Term Facility Barriers to discharge home: Lack of social support to meet functional needs at home, Patient unableto navigate stairs to enter home, Lack of supervision necessary to mitigate fall risk Mobility equipment available at home: 2 wheeled walker, rollator ADL equipment available at home: shower chair, grab bars, hand held shower hose, elevated toilet seat Equipment needed for discharge: to be determined Current therapy frequency recommendation in acute: Therapy Frequency: 5 times a week Precautions and Weightbearing Status: Patient Safety Communication Prior to Visit: Nursing Subjective: Pt was agreeable to participate, pt reports his BP has been dropping causing him to pass out when standing Pain: Pt denies pain Objective/Observation: Vitals/Vitals Responses to Treatment: Orthostatic BP Supine: 149/67 Sittin/63 After 5 minutes sitting (pt reports mild lightheadedness): 93/55 Once back in supine: 144/66 O2 Device: room air Cognition Overall Cognitive Status: Within Functional Limits Arousal/Alertness: Appropriate responses to stimuli Orientation Level: Oriented X4 Extremity Assessments: See PT Evaluation flowsheet for Extremity Measurement updates. Skin and Edema: Balance: Sitting Balance Static Sitting-Level of Assistance: Standby Dynamic Sitting-Level of Assistance: Contact guard Sitting Balance Skilled Intervention/Details: LOB x 1 during reaching outside YAW when donning socks. Pt completed EOB sitting x 10 minutes to increase strength and endurance. Pt educated in bilateral LE ther ex in sitting to increase strength and endurance Standing Balance Standing Balance Skilled Intervention/Details: deferred due to orthostatic BP in sitting Mobility Assessment/Intervention: Supine to Sit Mobility [place] Level: Supine->Sit: supervision Skilled Intervention/Details: Supine->Sit: generalized safety cues Sit to Supine Mobility [place] Level: Sit->Supine: stand-by assist Bed Features/Set-up: Sit->Supine: Flat Transfer Assessment/Intervention: Gait/Functional Mobility Assessment/Intervention: Stairs Assessment/Intervention: Outcome Score(s): CURRENT AM-PAC Basic Mobility Inpatient Short Form Turning over in bed: 4 - No Assistance Moving from lying on back to sittin - A Little Assistance Moving to and from bed to chair: 3 - A Little Assistance Sitting/standing from chair: 3 - A Little Assistance Walk in hospital room: 3 - A Little Assistance Climbing 3-5 steps with a railin - A Lot of Assistance CURRENT -[facility] Mobility Raw Score: 18 CURRENT -[facility] Mobility Functional Limitation: 46.58% Impaired in Basic Mobility Interventions: Assessment & Plan: Pt making slow progress toward date due to orthostatic BP Patient Instruction/Education this session: Learners: Patient Education provided: Discharge recommendations, Activity outside of therapy Plan for next session: Progress standing and gait distance Acute PT Goals Plan of Care by Diamond Duvall PT at 11/14/2023 2:17 PM Version 1 of 1 Problem: PT - General Goals Goal: Supine <-> Sit Transfers - Patient will perform supine to/from sit transfers with modified independence and without use of hospital bed features in order to improve functional mobility and safety. Outcome: Progressing Goal: Sit <-> Stand Transfers - Patient will perform sit to/from stand transfers with supervision and wheeled walker in order to improve functional mobility and safety. Outcome: Progressing Goal: Standing Endurance/Balance - Patient will perform standing balance tasks for 10 min with supervision and wheeled walker while maintaining an RPE of less than 2/10 to improve endurance and safety with standing tasks. Outcome: Progressing PT treatment consisted of the following to progress towards the above goal(s): PT Evaluation and Treatment Time Therapeutic Activity Time Entry: 16 Treating Therapist: Diamond Duvall PT Additional Details: PT Co-Eval/Treatment Information Co-evaluation/co-treatment performed?: No simultaneous skilled care performed PPE used during patient interaction: facemask, gloves Patient location at end of session: bed with head of bed elevated Alarms on at end of session: bed alarm, RN aware Needs in reach. Time In: 1334 Time Out: 1350 Total Visit Time: 16 minutes Total Treatment Time (skilled, billable minutes): 16 minutes Upon discontinuation of Acute Care Physical Therapy Services or patient discharge from the hospitalthis note represents the current Physical Therapy Discharge Summary. * Donna Bailey APRN-ARTI - 11/14/2023 12:11 PM EDT CARDIOLOGY CONSULT PROGRESS NOTE Cardiology consult on 11/13/2023 Hx CAD s/p stent, CABG on stroke service, request per vascular surgery for upcoming CEA v stent HPI I saw Mr. Yony Vega in follow-up on 11/14/2023. He is a 68 y.o. male with a history of HTN, mood disorder, iron deficiency, DM, GERD, right-sided carotid endarterectomy (2008), CAD/CABG (2007, Stent placed in 2014, Bypass in 2007), strokes (2008, 2011 with residual L side decrease sensation), colorectal cancer (s/p chemo, 2 years ago in remission since Last May 2023) who presented on 11/12/2023with transient increased left sided numbness (lasted 10 minutes), Headache. ASSESSMENT AND PLAN Lisbeth Operative Risk Assessment - CEA deferred for a carotid stent placement - Nuclear stress test today was negative for infarction & with no evidence of stress induced ischemia -TTE on 11/12 reported normal regional wall motion & global systolic function, LVEF 58%; normal RV size & function, RA normal - Patient denies any chest pain - His RCRI score is 3 points or 15% 30 day risk of , [place] or cardiac arrest- based on his nuclear stress test, no additional testing is needed. He can proceed with his CEA vs stent CAD, s/p CABG 2007, s/p PCI with stent 2014 - Denies chest pain - Nuclear stress test was negative for ischemia or infarction - Continue ASA, coreg 12.5 mg BID, Rosuvastatin Hyperlipidemia: lipid profile 11/13/23: TC 150, HDL 29, TG 279, LDL 65 - Continue Rosuvastatin 40 mg daily PAF - Remains in SR on telemetry. Continue coreg - [id number] score of 6- continue IV heparin with bridge to DOAC - Mobile renal dietitian at discharge to assess AF burden - Follow up with OP cardiology HTN - Continue coreg 12.5 mg BID - If he remains hypertensive, would re-start amlodipine 5 mg daily Other problems H/O CVA Left sided numbness/headache INTERVAL HISTORY/REVIEW OF SYSTEMS Overnight, the patient had no acute issues. He completed his nuclear stress test today. Review of Systems Constitutional: Positive for chills and malaise/fatigue. Cardiovascular: Negative for chest pain, leg swelling, orthopnea and palpitations. Respiratory: Negative for shortness of breath. Gastrointestinal: Negative for bloating, abdominal pain and nausea. Neurological: Positive for headaches. Negative for dizziness. PHYSICAL EXAM BP 137/65 (BP Location: Left arm, BP Position: Lying) Pulse 77 Temp 98.1 F (36.7 C) (Oral) Resp 20 Ht 1.676 m (5' 6) Wt 65.3 kg (143 lb 15.4 oz) SpO2 92% BMI 23.24 kg/m Smoking Status Never Constitutional: Awake, pleasant male, cooperative and in no acute distress HEENT: Normocephalic atraumatic, anicteric sclerae, neck supple, + Right carotid bruit present, no carotid bruit left Chest: Respiratory effort unlabored, lung sounds clear bilaterally, on room air Cardiovascular: No JVD appreciated. Normal rate & regular rhythm; S1 normal, S2 normal,no gallop, no friction rub or murmur heard Abdomen: Soft, non-tender, non-distended. +BS. Extremities: No peripheral edema. No stasis dermatitis. Radial pulses 2+ bilaterally, dorsalis pedis and posterior tibial pulses are 2+ bilaterally. Neurological: Alert and oriented to person, place and time. Skin: Warm, dry. No cyanosis. Nails show no clubbing. CARDIOVASCULAR IMAGING/DATA Nuclear Stress Test 11/14/2023 Conclusion Pharmacologic stress test is negative for remote infarction and with no definite evidence for stress induced ischemia. Nuclear perfusion images Resting Images: Normal pattern of perfusion to all segments of the ventricle. No evidence of infarction Post Stress Images: Perfusion pattern post stress shows a mild perfusion defect to a moderate sizedsegment of the inferior and inferolateral segments which normalizes with attenuation correction suggesting artifact. Clinical correlation, given the heavy coronary calcium load and reduced ejection fr action, with the pre-test probability of disease, are required. Left ventricular systolic function is mildly reduced. (ejection fraction 43%). ECG / stress portion of the exam Baseline ECG: sinus rhythm with anterior t-wave inversion Pharmacologic stress ECG is negative for ischemia at achieved heart rate. Dysrhythmias with stress: None Hemodynamic response to stress (heart rate & blood pressure): Normal Cardiac Symptoms / Reason for stopping test No symptoms to suggest ischemia Study stopped due to completion of protocol CT portion of the scan CT images were obtained for attenuation correction purposes only. Diagnostic quality of the images is limited. Coronary artery calcification: extensive and involving all vessels ECHOCARDIOGRAM 11/13/2023 (Final) Interpretation Summary Left ventricular size, regional wall motion and global systolic function are normal. Ejection fraction 58% Left atrium measures normal in size Right ventricle is normal in size and function. Estimated right ventricular/pulmonary artery systolic pressure is within normal limits Right atrium measures normal in size Valve structures are consistent with age. Mitral valve regurgitation, mild Aortic valve regurgitation (probable), trace Further study details described below 24 hour telemetry (personally reviewed): SR ADDITIONAL DATA REVIEWED Intake/Output Summary (Last 24 hours) at 11/14/2023 0851 Last data filed at 11/14/2023 0621 Gross per 24 hour Intake 675.05 ml Output 2415 ml Net -1739.95 ml Temp: [98 F (36.7 C)-98.5 F (36.9 C)] 98.1 F (36.7 C) Pulse (Heart Rate): [66-99] 77 Resp Rate: [13-20] 20 BP: (137-187)/(65-90) 137/65 O2 Sat (%): [91 %-95 %] 92 % Weight: [65.3 kg (143 lb 15.4 oz)] 65.3 kg (143 lb 15.4 oz) Oxygen Therapy O2 Sat (%): 92 % O2 Device: room air Body mass index is 23.24 kg/m . LABS Bun/Creat/Cl/CO2/Glucose: 18/0.86/101/29/160 (11/14 139-11/14 647) Na/K+/Phos/Mg/Ca: 140/3.7/--/--/-- (11/14 139) WBC/Hgb/Hct/Plts: 6.03/12.0/37.6/249 (11/14 139) No results found for: BNP Lab Results Component Value Date CHOLESTEROL 150 11/13/2023 TRIG 279 (H) 11/13/2023 HDL 29 (L) 11/13/2023 LDLCALC 65 11/13/2023 CURRENT MEDICATIONS: Aminophylline 50 mg Intravenous Once aspirin 81 mg Oral Daily carveDILOL 12.5 mg Oral Q12H DULoxetine 60 mg Oral QHS Gabapentin 300 mg Oral QHS insulin glargine 40 Units Subcutaneous Q12H Insulin lispro Subcutaneous 4x daily w/meals, HS Pantoprazole 40 mg Oral Daily regadenoson 0.4 mg Intravenous Once Rosuvastatin 40 mg Oral Daily Senna 8.6 mg Oral QAM Or Senna 8.6 mg Per NG tube QAM heparin 11 Units/kg/hr (11/14/23 0621) [id number] Score for Atrial Fibrillation Stroke Risk Age in Years: 65-74 Sex: Male CHF History: No Hypertension History: Yes Stroke/TIA/Thromboembolism History: Yes Vascular Disease History: Yes Diabetes History: Yes [id number] Score: 6 Complexity. Hypomagnesemia - Continue to monitor and replete. Any conditions listed below are present on admission unless otherwise specified. . Thank you for this consult. Please call with questions. We will continue to follow along. EUSEBIO [facility] Consult Service Phone: [phone] * EUSEBIO Field - 11/14/2023 6:45 AM EDT NEUROVASCULAR STROKE SERVICE Daily Progress Note IDENTIFYING INFORMATION Yony Vega MR# [id number] 11/14/2023 HISTORY OF PRESENT ILLNESS Yony Vega is a 68 y.o. male with PMH significant for HTN, mood disorder, iron deficiency, DM,GERD, right-sided carotid endarterectomy (2008), CAD/CABG (2007, Stent placed in 2014, Bypass in 2007), strokes (2008, 2011 with residual L side decrease sensation), colorectal cancer (s/p chemo, 2 years ago in remission since Last May 2023) who presented with transient increased left sided numbness (lasted 10 minutes), Headache. He complains of 2 weeks of worsening weakness and dizziness (room spinning) and hallucinations. INTERVAL HISTORY 11/12: Plan for pharm nuclear stress test tomorrow, NPO at midnight, increased rosuvastatin to 40 mg,increased coreg to 12.5 mg, started on neuro scale heparin gtt, stopped plavix 11/13: CEA deferred for carotid stent placement tentatively tomorrow. Stop Heparin gtt. Load and restart Plavix with normal PTT PHYSICAL EXAM Gen: awake, alert, NAD HEENT: normocephalic, no scalp lesions or tenderness Neck: trachea midline No JVD CV: +S1S2, RRR, no m/r/g Lungs: LCTA bilaterally with equal chest rise Abd: soft, nontender, nondistended, +BS x4 quadrants Extrem: Warm and well perfused, no edema, 2+ pulses bilaterally Neuro: Oriented x4, CHAVIRA x 4, sensation decreased on left side (baseline) CN II - All visual campbell intact CN II/III - PERRLA CN III/IV/ - EOMI CN V - Light touch to face intact in V1-3 CN VII - Facial movement intact and symmetrical bilaterally CN VIII - Hearing intact CN X - Cough present CN XI - muscular movement of shoulders and sternocleidomastoid muscles intact and equal bilaterally CN XII - midline protrusion of tongue MOTOR EXAMINATION: No drift NIHSS 11/14/2023 Provider NIH Stroke Scale NIH Interval (Provider): daily NIH Level of Conciousness (Provider): 0 NIH LOC Questions (Provider): 0 NIH LOC Commands (Provider): 0 NIH Best Gaze (Provider): 0 NIH Visual (Provider): 0 NIH Facial Palsy (Provider): 0 NIH Left Arm Motor (Provider): 0 NIH Right Arm Motor (Provider): 0 NIH Left Leg Motor (Provider): 0 NIH Right Leg Motor (Provider): 0 NIH Limb Ataxia (Provider): 0 NIH Sensory (Provider): 0 NIH Best Language (Provider): 0 NIH Dysarthria (Provider): 0 NIH Extinction and Inattention (Provider): 0 NIH Total Score (Provider): 0 ASSESSMENT AND PLAN Neuro: Punctuate R frontal and R occipital stroke CTH OSH: No acute findings CTA brain/neck OSH: <50% stenosis of bilateral carotid arteries. There is a short dissection of the R common carotid bulb extending to the proximal R ICA and proximal R ECA. MRI brain: Punctate acute to subacute infarcts in the right frontal lobe and right occipital lobe. Remote infarct in the medial right cerebellum. Multiple remote lacunar infarcts. [facility] Duplex carotid BL: R ICA 70-99% stenosis, L ICA 1-49% stenosis TTE: pending LDL 109, A1c 7.8 -Stroke Etiology (TOAST Criteria): cardio embolic versus YOEL -Antiplatelet plan: home Aspirin 81 mg and plavix 75 mg. Pt was on Heparin gtt until 11/13 which was stopped and Plavix was loaded and restarted -Statin therapy: Rosuvastatin 40 mg -Blood Pressure goal: <180 - EM on discharge per cardiology to monitor atrial fibrillation burden Cardiology and Vascular surgery consulted. Per cardiology recs,nuclear pharmacologic stress testing for ischemic evaluation (ordered) tentative plan 11/13 Per PVD,Tentative plan for right carotid stent 11/14 pending completion of cardiac risk stratification based on cardiology recommendations Ischemic Stroke Core Measures -NIHSS on admission 0. -Patient has been started on Mechanical (SCD's) and Pharmacological (SQ heparin/Lovenox) DVT prophylaxis. -Antiplatelet therapy has been initiated, Aspirin 81mg daily. -Anticoagulation therapy was/was not indicated for this patient, d/t pending workup -Patients LDL 109 and HgbA1c 7.8 were checked and the patient will be discharged on Rosuvastatin 40mg daily. -Dysphagia screening ordered, and will be completed prior to patient receiving oral intake. -Stroke education booklet has been ordered and will be provided by the RN that includes both written and verbal education to the patient and family regarding ischemic strokes. We have reviewed the patient's personal modifiable risk factors including: HTN, DM, stroke as well as education on reducingthese risk factors -Patient is being assessed for Rehab by PT/OT/Speech and PM&R if indicated. Other problems: Complexity. Hypomagnesemia - Continue to monitor and replete. Any conditions listed below are present on admission unless otherwise specified. . Other problems: HTN, POA - takes home coreg 6.25, increased to 12.5 mg 11/12 per cardiac rec Mood disorder, POA - Continue home duloxetine 60 mg DM, POA - Takes insulin lispro at home - Continue SSI here - Carb controlled diet GERD, POA - Takes omeprazole at home - Continue Protonix here Right-sided carotid endarterectomy (2008), Strokes (2008, 2011 with residual L side decrease sensation) - Vascular surgery following, plan for R carotid stent 11/14 - Continue home ASA 81, stop Heparin gtt and load Plavix then continue daily dose of 75mg - Increase home rosuvastatin 20 mg to 40 mg 11/13 CAD/CABG (2007, Stent placed in 2014, Bypass in 2007) - Cardiology following - Continue home ASA 81 - Increase home rosuvastatin 20 mg to 40 mg 11/13 Paroxymal Atrial Fibrillation - Coreg as above - Cardiology consulted, [id number] at 6, per cardiology recs started on neuro scale hep gtt 11/12 with Aspirin 81 mg, stopped plavix 11/12. Heparin gtt stopped 11/13, plan to load Plavix with declining PTT for stent tomorrow. Plan ultimately for ASA/Plavix/DOAC triple therapy for 30 days given pt's Chadsvasc of 6 and recommendation for DAPT from Vascular surgery team. Disposition: Yony Vega will likely be discharged TBD pending workup Brian Self, CREDIT CONSULTANT-CLOUD DEVELOPER 11/14/2023 6:45 AM VITAL SIGNS Temp: [98 F (36.7 C)-98.5 F (36.9 C)] 98 F (36.7 C) Pulse (Heart Rate): [66-99] 70 Resp Rate: [13-18] 13 BP: (160-187)/(72-90) 174/81 O2 Sat (%): [91 %-95 %] 92 % Weight: [65.3 kg (143 lb 15.4 oz)] 65.3 kg (143 lb 15.4 oz) Oxygen Therapy: Oxygen Therapy O2 Sat (%): 92 % O2 Device: room air Oxygen Delivery/Consumption Hemodynamics BSA (Calculated - sq m): 1.74 m2 Intake/Output: Intake/Output Summary (Last 24 hours) at 11/14/2023 0645 Last data filed at 11/14/2023 0621 Gross per 24 hour Intake 1072.31 ml Output 2415 ml Net -1342.69 ml LABS/CULTURES Lab Results Component Value Date WBC 6.03 11/14/2023 HGB 12.0 (L) 11/14/2023 HCT 37.6 (L) 11/14/2023 PLATELET 249 11/14/2023 MCV 84.5 11/14/2023 Lab Results Component Value Date SODIUM 140 11/14/2023 POTASSIUM 3.7 11/14/2023 CHLORIDE 101 11/14/2023 CO2 29 11/14/2023 BUN 18 11/14/2023 CREATSERUM 0.86 11/14/2023 GLUCOSE 176 (H) 11/14/2023 Lab Results Component Value Date CHOLESTEROL 150 11/13/2023 CHOLESTEROL 180 11/12/2023 TRIG 279 (H) 11/13/2023 TRIG 188 (H) 11/12/2023 HDL 29 (L) 11/13/2023 HDL 33 (L) 11/12/2023 LDLCALC 65 11/13/2023 LDLCALC 109 (H) 11/12/2023 Lab Results Component Value Date HGBA1C 7.8 (H) 11/13/2023 Lab Results Component Value Date ALBUMIN 3.8 11/13/2023 , No results found for: CPK, TROP IMAGING/DIAGNOSTIC STUDIES ECHOCARDIOGRAM MRI BRAIN WITH AND WITHOUT CONTRAST Final Result IMPRESSION: Punctate acute to subacute infarcts in the right frontal lobe and right occipital lobe. Remote infarct in the medial right cerebellum. Multiple remote lacunar infarcts. CHEST PA AND LATERAL 2 VIEWS Final Result IMPRESSION: No acute cardiopulmonary disease Indeterminate age nondisplaced fracture of the proximal left humerus, I suggest further evaluation with dedicated radiograph. DUPLEX CAROTID BILATERAL Final Result NUC MYOCARD PERF STRESS MIBI PHARM (Results Pending) MEDICATIONS aspirin 81 mg Oral Daily carveDILOL 12.5 mg Oral Q12H DULoxetine 60 mg Oral QHS Gabapentin 300 mg Oral QHS insulin glargine 40 Units Subcutaneous Q12H Insulin lispro Subcutaneous 4x daily w/meals, HS Pantoprazole 40 mg Oral Daily Rosuvastatin 40 mg Oral Daily Senna 8.6 mg Oral QAM Or Senna 8.6 mg Per NG tube QAM Associated attestation - Joeslito Mora MD - 11/14/2023 4:52 PM EDT Attending Physician Note (GC) I interviewed and examined this patient with the AIRLINE STATION AGENT. I reviewed the history and exam detailed in the note. I agree with the medical decision making with the following comment(s): New AF with multi-focal infarct and also symptomatic carotid. Planning for SANTANA tomorrow and then brief DAPT + anticoagulation with plan to transition to a single antiplatelet agent and anticoagulation subsequently. * JUANCARLOS White - 11/13/2023 1:40 PM EDT Acute Care ENTRY LEVEL MARKETING ASSISTANT Speech/Language/Cognitive Evaluation Best mode of Communication: spoken language (regular speech) Discharge Recommendations: Based on the below outcome measures/assessment score(s) and ENTRY LEVEL MARKETING ASSISTANT clinicaljudgment, discharge destination recommendation is: Skilled ENTRY LEVEL MARKETING ASSISTANT services not warranted at discharge Acute ENTRY LEVEL MARKETING ASSISTANT Outcomes Tracking Communicate basic wants and needs?: yes Demo insight/appreciation of deficits?: yes Complete basic problem solving?: yes Current therapy frequency recommendation in acute: Speech/Lang/Cog Therapy Frequency: no therapy warranted Clinical Impression: Yony Vega presents with functional cognitive-communication s/p acute to subacute R frontal & R occipital infarcts. Of note, pt with various chronic infarcts. Pt reports he is at his baseline with cognitive-communication and swallowing. He reports he has had swallowing tests in the past and they showed areas of soreness in his throat d/t reflux. Pt denies concerns with swallowing at thistime and that he is on reflux medication. Pt reports he does do most IADLs at baseline but does notdrive, work, or cook. Pt voices interest in returning to work or volunteering for quality of life. ENTRY LEVEL MARKETING ASSISTANT to sign off at this time. Re consult as needed. Patient Education/Instruction Learners: Patient Education provided: Discharge recommendations, Plan of care, Role of this discipline Teaching method: Verbal Education/Instruction Learner response: States/Identifies/Teaches back Learning preferences: Auditory Learning considerations: No barriers/ready to learn Stroke education: Basic neuroanatomy, Role of rehabilitation discipline, Mood and cognitive changesafter stroke Patient Instruction/Education comments: Pt educated on the above. Verbalized understanding. Plan for next session: NA Subjective information: Pt resting flat in bed upon ENTRY LEVEL MARKETING ASSISTANT arrival. Pain: General Pain Documentation (Adult, OB, Peds) Presence of Pain: not present: non-verbal indicator of pain/discomfort Presence of Pain Score (Auto-calculated): 0 Comfort/Acceptable General Pain Level/Goal: 0 Precautions: Patient Safety Communication Prior to Visit: Nursing Lines/Tubes/Drains (Rehab Status): No critical lines at this time ENTRY LEVEL MARKETING ASSISTANT Existing Precautions/Restrictions: no known precautions/restrictions Patient History Comments: Yony Vega is a 68 y.o. male with PMH significant for HTN, mood disorder, iron deficiency, DM, GERD, right-sided carotid endarterectomy (2008), CAD/CABG (2007, Stent placed in 2014, Bypass in 2007), strokes (2008, 2011 with residual L side decrease sensation), colorectal cancer (s/p chemo, 2 years ago in remission since Last May 2023) who presented with transient increased left sided numbness (lasted 10 minutes), Headache. He complains of 2 weeks of worsening weakness and dizziness (room spinning) and hallucinations. Prior Level of Function: Pt reports he was previously IND with IADLs but does not often cook d/t dizziness and does not drive. Residence: House Lives With: spouse (granddaughter) IADL History IADL Comments: Pt reports he does IADLs but doesn't cook much and doesn't drive. ENTRY LEVEL MARKETING ASSISTANT Existing Precautions/Restrictions: no known precautions/restrictions Respiratory Status: O2 Sat (%): 91 % (11/12 1126) O2 Device: room air (11/12 1126) Flow (L/min): 2 (11/12 418) EXPRESSIVE LANGUAGE: Intact RECEPTIVE LANGUAGE: Intact READING: (did not assess but pt denies concerns) WRITING: (did not assess but pt denies concerns) SOCIAL INTERACTION/PRAGMATICS: Intact COGNITION: Within Functional Limits Task: Arousal/Alertness Appropriate responses to stimuli Orientation Level Oriented X4 Safety Judgment Good awareness of safety precautions Awareness of Errors Good awareness of errors made Deficits Fully aware of deficits Attention Span Appears intact Memory Appears intact Problem Solving Able to problem solve independently Cognition Comments Cognition at baseline per pt report CRANIAL NERVE EXAMINATION: Cranial Nerve Exam CN V (Trigeminal) normal blink CN VII (Facial) strong bilateral movement of upper and lower face CN IX (glossopharyngeal) voice quality strong and clear CN X (Vagus) soft palate and pharynx rise symmetrically when patient says 'ahhh' CN XI (Accessory) raises head off pillow without difficulty, strong and equal rotation of head, strong and equal shoulder shrug CN XII (Hypoglossal) clearly articulated speech MOTOR SPEECH TASKS: Intact VOCAL PARAMETERS: Intact Subjective Voice Evaluation Grade of dysphonia (G): 0 Roughness (R): 0 Breathiness (B): 0 Asthenia (A): 0 Strain (S): 0 ENTRY LEVEL MARKETING ASSISTANT Outcomes: ENTRY LEVEL MARKETING ASSISTANT Outcomes / Standardized Measures Score The Orientation Log (O-Log) & The Cognitive Log (Cog-Log) Orientation Log City: correct spontaneously or upon first free recall attempt Kind of Place: correct spontaneously or upon first free recall attempt Name of Hospital: correct spontaneously or upon first free recall attempt Month: correct spontaneously or upon first free recall attempt Date: correct spontaneously or upon first free recall attempt Year: correct spontaneously or upon first free recall attempt Day of Week: correct spontaneously or upon first free recall attempt Clock Time: correct spontaneously or upon first free recall attempt Etiology / Event: correct spontaneously or upon first free recall attempt Pathology Deficits: correct spontaneously or upon first free recall attempt Total Score: 30 Acute ENTRY LEVEL MARKETING ASSISTANT Goals Notes from 11/13/2023 2:36 AM through 11/13/2023 2:36 PM Goal 1: Patient will demonstrate understanding regarding Speech-Language Pathology role and plan ofcare and evaluation results/recommendations to improve awareness of condition/ENTRY LEVEL MARKETING ASSISTANT role by the time of discharge. Results and recommendations described above reviewed with pt. Pt verbalized understanding. Goal met. Speech Language Pathologist: JUANCARLOS White Time In: 1340 Time Out: 1355 Total Visit Time: 15 minutes Total Treatment Time (skilled, billable minutes): 15 minutes Non-billable assistance during session: NA Assisted by during session: NA PPE used during patient interaction: facemask, gloves Patient location/status at end of session: bed - flat Patient alarms at end of session: none altered Needs in reach. ENTRY LEVEL MARKETING ASSISTANT Evaluation and Treatment Time Speech Eval - Sound Production W/Lang Comp and Exp 43629: 15 Upon discontinuation of Acute Care Speech Therapy Services or patient discharge from the hospital this note represents the current Speech Therapy Discharge Summary * JUANCARLOS White - 11/13/2023 1:28 PM EDT Acute Care Speech Language Pathology Note Received consult for swallow evaluation. However, patient passed [place] Swallow Screening by nursing.Swallow eval by ENTRY LEVEL MARKETING ASSISTANT will not be completed at this time unless this service notified of change in status or re-consult for swallow eval placed. ENTRY LEVEL MARKETING ASSISTANT to proceed with speech/language/cognitive evaluationper order. Thank you. No charge Therapist: Neena Kim M.A., ENTRY LEVEL MARKETING ASSISTANT COND.[id number] * EUSEBIO Blackmon - 11/13/2023 1:13 PM EDT NEUROVASCULAR STROKE SERVICE Daily Progress Note IDENTIFYING INFORMATION Yony Vega MR# [id number] 11/13/2023 HISTORY OF PRESENT ILLNESS Yony Vega is a 68 y.o. male with PMH significant for HTN, mood disorder, iron deficiency, DM,GERD, right-sided carotid endarterectomy (2008), CAD/CABG (2007, Stent placed in 2014, Bypass in 2007), strokes (2008, 2011 with residual L side decrease sensation), colorectal cancer (s/p chemo, 2 years ago in remission since Last May 2023) who presented with transient increased left sided numbness (lasted 10 minutes), Headache. He complains of 2 weeks of worsening weakness and dizziness (room spinning) and hallucinations. INTERVAL HISTORY 11/12: Plan for pharm nuclear stress test tomorrow, NPO at midnight, increased rosuvastatin to 40 mg,increased coreg to 12.5 mg, started on neuro scale heparin gtt, stopped plavix PHYSICAL EXAM Gen: awake, alert, NAD HEENT: normocephalic, no scalp lesions or tenderness Neck: trachea midline No JVD CV: +S1S2, RRR, no m/r/g Lungs: LCTA bilaterally with equal chest rise Abd: soft, nontender, nondistended, +BS x4 quadrants Extrem: Warm and well perfused, no edema, 2+ pulses bilaterally Neuro: Oriented x4, CHAVIRA x 4, sensation decreased on left side (baseline) CN II - All visual campbell intact CN II/III - PERRLA CN III/IV/ - EOMI CN V - Light touch to face intact in V1-3 CN VII - Facial movement intact and symmetrical bilaterally CN VIII - Hearing intact CN X - Cough present CN XI - muscular movement of shoulders and sternocleidomastoid muscles intact and equal bilaterally CN XII - midline protrusion of tongue MOTOR EXAMINATION: No drift NIHSS 11/13/2023 Provider NIH Stroke Scale NIH Interval (Provider): daily NIH Level of Conciousness (Provider): 0 NIH LOC Questions (Provider): 0 NIH LOC Commands (Provider): 0 NIH Best Gaze (Provider): 0 NIH Visual (Provider): 0 NIH Facial Palsy (Provider): 0 NIH Left Arm Motor (Provider): 0 NIH Right Arm Motor (Provider): 0 NIH Left Leg Motor (Provider): 0 NIH Right Leg Motor (Provider): 0 NIH Limb Ataxia (Provider): 0 NIH Sensory (Provider): 0 NIH Best Language (Provider): 0 NIH Dysarthria (Provider): 0 NIH Extinction and Inattention (Provider): 0 NIH Total Score (Provider): 0 ASSESSMENT AND PLAN Neuro: Punctuate R frontal and R occipital stroke CTH OSH: No acute findings CTA brain/neck OSH: <50% stenosis of bilateral carotid arteries. There is a short dissection of the R common carotid bulb extending to the proximal R ICA and proximal R ECA. MRI brain: Punctate acute to subacute infarcts in the right frontal lobe and right occipital lobe. Remote infarct in the medial right cerebellum. Multiple remote lacunar infarcts. Vasc Duplex carotid BL: R ICA 70-99% stenosis, L ICA 1-49% stenosis TTE: pending LDL 109, A1c 7.8 -Stroke Etiology (TOAST Criteria): cardio embolic versus YOEL -Antiplatelet plan: home Aspirin 81 mg and plavix 75 mg -Statin therapy: Rosuvastatin 40 mg -Blood Pressure goal: <180 - EM on discharge per cardiology to monitor atrial fibrillation burden Cardiology and Vascular surgery consulted. Per cardiology recs,nuclear pharmacologic stress testing for ischemic evaluation (ordered) tentative plan 11/13 Per PVD,Tentative plan for right CEA 11/14 pending completion of cardiac risk stratification based on cardiology recommendations Ischemic Stroke Core Measures -NIHSS on admission 0. -Patient has been started on Mechanical (SCD's) and Pharmacological (SQ heparin/Lovenox) DVT prophylaxis. -Antiplatelet therapy has been initiated, Aspirin 81mg daily. -Anticoagulation therapy was/was not indicated for this patient, d/t pending workup -Patients LDL 109 and HgbA1c 7.8 were checked and the patient will be discharged on Rosuvastatin 40mg daily. -Dysphagia screening ordered, and will be completed prior to patient receiving oral intake. -Stroke education booklet has been ordered and will be provided by the RN that includes both written and verbal education to the patient and family regarding ischemic strokes. We have reviewed the patient's personal modifiable risk factors including: HTN, DM, stroke as well as education on reducingthese risk factors -Patient is being assessed for Rehab by PT/OT/Speech and PM&R if indicated. Other problems: Complexity. Hypomagnesemia - Continue to monitor and replete. Any conditions listed below are present on admission unless otherwise specified. . Other problems: HTN, POA - takes home coreg 6.25, increased to 12.5 mg 11/12 per cardiac rec Mood disorder, POA - Continue home duloxetine 60 mg DM, POA - Takes insulin lispro at home - Continue SSI here - Carb controlled diet GERD, POA - Takes omeprazole at home - Continue Protonix here Right-sided carotid endarterectomy (2008), Strokes (2008, 2011 with residual L side decrease sensation) - Vascular surgery following, plan for CEA on 11/14 pending stress test - Continue home ASA 81(home plavix stopped for AC plan) - Increase home rosuvastatin 20 mg to 40 mg 11/13 CAD/CABG (2007, Stent placed in 2014, Bypass in 2007) - Cardiology following - Continue home ASA 81 - Increase home rosuvastatin 20 mg to 40 mg 11/13 Paroxymal Atrial Fibrillation - Coreg as above - Cardiology consulted, [id number] at 6, per cardiology recs started on neuro scale hep gtt 11/12 with Aspirin 81 mg, stopped plavix 11/12. (Plan to stop hep gtt 6 hrs prior any surgery) Disposition: Yony Vega will likely be discharged pending workup Fartun Mckinley APRN-CLOUD DEVELOPER 11/13/2023 1:13 PM VITAL SIGNS Temp: [98 F (36.7 C)-98.5 F (36.9 C)] 98.5 F (36.9 C) Pulse (Heart Rate): [67-99] 99 Resp Rate: [11-18] 16 BP: (172-213)/(75-104) 186/90 O2 Sat (%): [91 %-95 %] 91 % Weight: [65.3 kg (144 lb)] 65.3 kg (144 lb) Oxygen Therapy: Oxygen Therapy O2 Sat (%): 91 % O2 Device: room air Flow (L/min): 2 Oxygen Delivery/Consumption Hemodynamics BSA (Calculated - sq m): 1.74 m2 Intake/Output: Intake/Output Summary (Last 24 hours) at 11/13/2023 1313 Last data filed at 11/13/2023 1130 Gross per 24 hour Intake 905.4 ml Output 1100 ml Net -194.6 ml LABS/CULTURES Lab Results Component Value Date WBC 5.38 11/13/2023 HGB 12.3 (L) 11/13/2023 HCT 37.7 (L) 11/13/2023 PLATELET 253 11/13/2023 MCV 83.6 11/13/2023 Lab Results Component Value Date SODIUM 140 11/13/2023 POTASSIUM 3.6 11/13/2023 CHLORIDE 100 11/13/2023 CO2 30 11/13/2023 BUN 16 11/13/2023 CREATSERUM 0.76 11/13/2023 GLUCOSE 253 (H) 11/13/2023 Lab Results Component Value Date CHOLESTEROL 150 11/13/2023 CHOLESTEROL 180 11/12/2023 TRIG 279 (H) 11/13/2023 TRIG 188 (H) 11/12/2023 HDL 29 (L) 11/13/2023 HDL 33 (L) 11/12/2023 LDLCALC 65 11/13/2023 LDLCALC 109 (H) 11/12/2023 Lab Results Component Value Date HGBA1C 7.8 (H) 11/13/2023 Lab Results Component Value Date ALBUMIN 3.8 11/13/2023 , No results found for: CPK, TROP IMAGING/DIAGNOSTIC STUDIES MEDICATIONS aspirin 81 mg Oral Daily carveDILOL 6.25 mg Oral Q12H Clopidogrel 75 mg Oral Daily DULoxetine 60 mg Oral QHS enoxaparin 40 mg Subcutaneous Q24H Gabapentin 300 mg Oral QHS insulin glargine 40 Units Subcutaneous Q12H Insulin lispro Subcutaneous 4x daily w/meals, HS Pantoprazole 40 mg Oral Daily Rosuvastatin 20 mg Oral Daily Senna 8.6 mg Oral QAM Or Senna 8.6 mg Per NG tube QAM Associated attestation - Joselito Mora MD - 11/14/2023 7:42 AM EDT Attending Physician Note (GC) I interviewed and examined this patient with the AIRLINE STATION AGENT. I reviewed the history and exam detailed in the note. I agree with the medical decision making with the following comment(s): * SHAUN Tovar - 11/13/2023 1:08 PM EDT Discharge Planning Patient Assessment Admission Assessment Patient Assessment Completed: Initial Anticipated discharge disposition: Long-Term Facility Reason for Admission: Stroke Workup Is the patient able to participate in the assessment?: Yes Information source: Patient Demographics Verified and Updated: Yes Has the patient been admitted to any hospital in the last 30 days?: No Advanced Care Planning Has the patient completed Advance Directives?: Completed, Not Available in Medical Record Copy of Advance Directives was requested?: Yes Advance Directives Requested From: Patient will ask spouse Legal Next of Kin Does the patient have a Guardian?: No Spouse: Yes Name and Contact information: José Vega - [phone] Adult Child(sole), List All Adult Children: Yes Name and Contact information: Agustin Vega - [phone] Would you like to add additional adult children?: No Referral to Social Work to Identify Legal Next of Kin?: No Reviewed and Updated in Demographics? : Yes Outpatient Providers Does patient have a primary care physician? : Yes When was the patient's last PCP visit?: < 30 days Does the patient follow any specialists?: Yes Reviewed and updated Care Team?: Yes Patient Care Team: Kendy Modi MD as PCP - General (Family Medicine) Environment/Caregivers Is the patient from a facility or correction?: No Patient lives with: Spouse or Partner Living Environment: House Patient Caregiving Responsibilities: Self Patient-identified caregiver/support network: Family Who does the patient identify as a teachable caregiver(s)?: Spouse or Partner, Child(sole) - Independent Services Does the patient use a home health or hospice agency?: No Current with dialysis?: No Does the patient use any community programs or services?: No Does patient use DME? : [facility] Would you like to add additional DME providers?: No Does the patient use oxygen?: No Does patient use medical supplies? : none Anticipated Changes Related to Illness/Injury? : Yes Inability to care for self?: Yes Inability to care for dependents?: N/A Inability to return to school/work?: N/A Initial ADLs Prior to Arrival What is the patient's baseline physical functioning prior to this acute illness?: independent What is the patient's baseline cognitive functioning prior to this acute illness?: independent Is the patient's baseline functioning changed by this acute illness? : Yes Changes observed : Physical Concerns with patient being able to care for themselves at home? : Yes Are there therapy or specialists consults?: Yes Select consult type: PT, OT Does the patient's home require any home modifications for discharge? : Unknown at this time CM to recommend therapy or other consults? : No Medication Management Does the patient have prescription insurance coverage? : Yes Is the patient on Anticoagulation? : No [facility] [place] [address] [address] [facility] [address] [facility] [address] Director Of Casino Does the patient or claims service representative express financial concerns? : No Employed?: Disabled Coping/Stress Concerns about patient s coping and stress?: No Concerns about patient s caregiver s coping and stress?: No Values and Beliefs Cultural or caodaism practices that may impact discharge planning and/or medical care?: No Initial Discharge Planning Anticipated discharge disposition: Long-Term Facility Transportation Available for Discharge: Ambulance, Family or Friend Anticipated DME: none Anticipated Services at Discharge: Physical Therapy, Occupational Therapy, Outpatient follow up Patient Assessment Completed: Initial Expected Discharge Date: 11/13/2023 Discharge Planning Summary CM met with patient at bedside. Patient pending procedure with Neurosurgery for Tuesday 11/14. Current recommendation is for SNF. Patient will require insurance Authorization for SNF. Care Management Plan Patient requested CM reach out to his regarding SNF recommendation. Patient's spouse is at work. CM will follow up. BILL Tovar, INSOLE DOUBLER Wire Straightening Machine Operator Available by Secure Chat * Cherelle Carter MD - 11/13/2023 4:52 AM EDT Images from the original note were not included. NEUROVASCULAR STROKE SERVICE Daily Progress Note IDENTIFYING INFORMATION Yony Vega MR# [id number] 11/13/2023 HISTORY OF PRESENT ILLNESS Yony Vega is a 68 y.o. male with PMH significant for HTN, mood disorder, iron deficiency, DM,GERD, right-sided carotid endarterectomy (2008), CAD/CABG (2007, Stent placed in 2014, Bypass in 2007), strokes (2008, 2011 with residual L side decrease sensation), colorectal cancer (s/p chemo, 2 years ago in remission since Last May 2023) who presented with transient increased left sided numbness (lasted 10 minutes), Headache. He complains of 2 weeks of worsening weakness and dizziness (room spinning) and hallucinations. INTERVAL HISTORY 11/11: Admitted to [place] service PHYSICAL EXAM General: Laying comfortably in bed; in no acute distress. HENT: Normal oropharynx and mucosa. Normal external appearance of ears and nose. Neck: Supple, no pain or tenderness, no lymphadenopathy CV: Pulse is regular, strong in distal extremities. No peripheral edema. Pulmonary: Normal respiratory effort. No accessory muscle use. On room air. Abdomen: Colostomy present. Soft, non-tender. Ext: No cyanosis, edema, or deformity. Skin: No rash. Skin warm and dry. Neurologic Examination Mental status/Cognition: alert; oriented to month and age; good attention; no apparent neglect; following commands Speech/language: no dysarthria; comprehension intact; object naming intact; repetition intact Cranial nerves: CN II Visual campbell full to confrontation without visual extinction CN III,IV, PERRL. EOMI CN V Facial sensation intact to light touch bilaterally in V1, V2, V3 CN VII Face, Smile, Eyebrow raise/closure symmetric CN VIII Hearing grossly intact to voice CN IX & X Soft palate elevates symmetrically in the midline, no dysarthria CN XI Shoulder shrug with full strength CN XII Tongue protrudes midline Motor: Normal bulk and tone. - Left arm: no drift - Right arm: no drift - Left leg: no drift - Right leg: no drift Sensation: intact to light touch throughout without extinction Coordination/Complex Motor: no obvious ataxia in arm or leg movements NIHSS 11/13/2023 Provider NIH Stroke Scale NIH Interval (Provider): daily NIH Level of Conciousness (Provider): 0 NIH LOC Questions (Provider): 0 NIH LOC Commands (Provider): 0 NIH Best Gaze (Provider): 0 NIH Visual (Provider): 0 NIH Facial Palsy (Provider): 0 NIH Left Arm Motor (Provider): 0 NIH Right Arm Motor (Provider): 0 NIH Left Leg Motor (Provider): 0 NIH Right Leg Motor (Provider): 0 NIH Limb Ataxia (Provider): 0 NIH Sensory (Provider): 0 NIH Best Language (Provider): 0 NIH Dysarthria (Provider): 0 NIH Extinction and Inattention (Provider): 0 NIH Total Score (Provider): 0 ASSESSMENT AND PLAN R Frontal and occpital infarcts, subacute: - Etiology by TOAST Criteria - pending work-up - OSH CT head: no acute findings - OS CTA brain demonstrated <50% stenosis of bilateral carotid arteries. - Vasc Duplex Carotid BL: R ICA stenosis (70-99%), L ICA stenosis (1-49%) - CTP: not complete - MRI: Punctate acute to subacute infarcts in the right frontal lobe and right occipital lobe. Remote infarct in the medial right cerebellum. Multiple remote lacunar infarcts. - SBP: <220 - LDL: 65 - A1C: p - TTE: p - Statin therapy: continue home rosuvastatin 20 mg - Antiplatelet therapy: ASA 81mg/ Plavix 75 mg - Anticoagulation: none - Vascular surgery consult - CEA vs stent - Cardiology consult Ischemic Stroke Core Measures - NIHSS on admission 0 - Patient has been started on Mechanical (SCD's) and Pharmacological (SQ heparin/Lovenox) DVT prophylaxis. - Antiplatelet therapy has been initiated, Aspirin 81 mg daily, Plavix 75 mg - Anticoagulation therapy was not indicated for this patient -Patients LDL and HgbA1c were checked and the patient will be discharged on a lipid lowering statinif LDL >70 and glucose management if A1c >6.5%. - Dysphagia screening ordered, and will be completed prior to patient receiving oral intake. - Stroke education booklet has been ordered and will be provided by the RN that includes both written and verbal education to the patient and family regarding ischemic strokes. We have reviewed the patient's personal modifiable risk factors. - Patient is being assessed for Rehab by PT/OT/Speech and PM&R if indicated. Other Medical Problems: HTN: coreg 6.25 bid Mood disorder: duloxetine 60 mg Iron deficiency DM: insulin lispro -> SSI GERD: pantoprazole 40 mg Right-sided carotid endarterectomy (2008): ASA 81, Plavix 75 mg, rosuvastatin 20 mg CAD/CABG (2007, Stent placed in 2014, Bypass in 2007): ASA 81, Plavix 75 mg, rosuvastatin 20 mg Strokes (2008, 2011 with residual L side decrease sensation): ASA 81, Plavix 75 mg, rosuvastatin 20mg Colorectal cancer Diet: DIET REGULAR DVT prophylaxis: Lovenox Code status: Full Code Dispo: Pending work-up Staff: Dr. Gaffney. Signed, Cherelle Carter MD Neurology PGY-3 VITAL SIGNS Temp: [97.9 F (36.6 C)-98.4 F (36.9 C)] 98 F (36.7 C) Pulse (Heart Rate): [70-89] 70 Resp Rate: [11-17] 11 BP: (171-213)/(75-104) 191/80 O2 Sat (%): [92 %-95 %] 95 % Weight: [65.3 kg (144 lb)-67.1 kg (148 lb)] 65.3 kg (144 lb) Oxygen Therapy: Oxygen Therapy O2 Sat (%): 95 % O2 Device: nasal cannula Flow (L/min): 2 Oxygen Delivery/Consumption Hemodynamics BSA (Calculated - sq m): 1.74 m2 Intake/Output: Intake/Output Summary (Last 24 hours) at 11/13/2023 0452 Last data filed at 11/13/2023 0248 Gross per 24 hour Intake 148.14 ml Output 1525 ml Net -1376.86 ml LABS/CULTURES Lab Results Component Value Date WBC 5.38 11/13/2023 HGB 12.3 (L) 11/13/2023 HCT 37.7 (L) 11/13/2023 PLATELET 253 11/13/2023 MCV 83.6 11/13/2023 Lab Results Component Value Date SODIUM 140 11/13/2023 POTASSIUM 3.6 11/13/2023 CHLORIDE 100 11/13/2023 CO2 30 11/13/2023 BUN 16 11/13/2023 CREATSERUM 0.76 11/13/2023 GLUCOSE 215 (H) 11/13/2023 Lab Results Component Value Date CHOLESTEROL 150 11/13/2023 CHOLESTEROL 180 11/12/2023 TRIG 279 (H) 11/13/2023 TRIG 188 (H) 11/12/2023 HDL 29 (L) 11/13/2023 HDL 33 (L) 11/12/2023 LDLCALC 65 11/13/2023 LDLCALC 109 (H) 11/12/2023 Lab Results Component Value Date HGBA1C 7.8 (H) 11/12/2023 Lab Results Component Value Date ALBUMIN 3.8 11/13/2023 , No results found for: CPK, TROP IMAGING/DIAGNOSTIC STUDIES MRI BRAIN WITH AND WITHOUT CONTRAST Final Result IMPRESSION: Punctate acute to subacute infarcts in the right frontal lobe and right occipital lobe. Remote infarct in the medial right cerebellum. Multiple remote lacunar infarcts. CHEST PA AND LATERAL 2 VIEWS Final Result IMPRESSION: No acute cardiopulmonary disease Indeterminate age nondisplaced fracture of the proximal left humerus, I suggest further evaluation with dedicated radiograph. DUPLEX CAROTID BILATERAL Final Result ECHOCARDIOGRAM (Results Pending) MEDICATIONS aspirin 81 mg Oral Daily carveDILOL 6.25 mg Oral Q12H Clopidogrel 75 mg Oral Daily DULoxetine 60 mg Oral QHS enoxaparin 40 mg Subcutaneous Q24H Gabapentin 300 mg Oral QHS insulin glargine 40 Units Subcutaneous Q12H Insulin lispro Subcutaneous 4x daily w/meals, HS Pantoprazole 40 mg Oral Daily Rosuvastatin 20 mg Oral Daily Senna 8.6 mg Oral QAM Or Senna 8.6 mg Per NG tube QAM * Steffany Cruz OT - 11/12/2023 1:58 PM EDT Acute Occupational Therapy Evaluation Prior to Admission AM-PAC Score: PRIOR LEVEL AM-PAC Activity Raw Score: 24 Current AM-PAC score(s): CURRENT AM-PAC Activity Raw Score: 19 Based on the above AM-PAC score(s) and OT clinical judgment, discharge destination recommendation is: Long-Term Facility Barriers to discharge home: Patient needs assistance with ADLs, Patient needs assistance with IADLs(see note below), Patient needs assistance with self-care for medical condition (see note below) Mobility equipment available at home: 2 wheeled walker, rollator ADL equipment available at home: shower chair, grab bars, hand held shower hose, elevated toilet seat Equipment recommendations for discharge: to be determined Current therapy frequency recommendation(s) in acute: 5 times a week Activity Recommendations for outside of rehab session: OOB for ADLs with staff assistance Precautions and Weightbearing Status: OT Existing Precautions/Restrictions: fall Telemetry Patient Safety Communication Prior to Visit: Nursing Subjective: I take care of my ostomy Pain: General Pain Documentation (Adult, OB, Peds) Presence of Pain: denies pain/discomfort Presence of Pain Score (Auto-calculated): 0 Home Setting Residence: House Lives With: spouse First floor setup: bedroom, tub shower Second floor setup: (1fight to basement, doesn't use) Number of stairs to enter home: 2 Mobility Equipment Available: 2 wheeled walker, rollator ADL Equipment Available: shower chair, grab bars, hand held shower hose, elevated toilet seat Home Environment Details: works out of the house, he is home alone and moving several hours a day (half dozen falls over the past month) Previous Level of Function Dominant Hand: Right Bed Mobility/Transfers: other (see comments) Assistive Device: 4 wheeled walker, 2 wheeled walker Level of Ambulation: household Prior Level of Function Details: able to do simple meal prep, 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, 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 IADL History IADL Comments: simple meal prep only ( does all I-ADLs for pt) Objective/Observation: Vitals/Vitals Responses to Treatment: Vitals: 11/12/23 1300 BP: Pulse: 89 Resp: 17 Temp: SpO2: Vision Screen Currently wearing corrective lenses: Yes Clinical Observations: planned surgery 11/13/23 to remove scar tissue (nystagmus with L to R, unable to track up/down, difficulty with convergence) Visual Impairments Observed?: (R neglect) Speech Speech: no gross deficits noted Hearing Hearing: no gross deficits noted Cognition Overall Cognitive Status: Within Functional Limits Cognition Comments: seeing things over the past few days ADLs: ADL Anticipated Performance (ADLs not directly observed this session): Bathing Eating Assistance: Independent Eating Location: bed level Grooming Assistance: Set up supervision Grooming Location: edge of bed Grooming Deficit: Retrieval of items Grooming Intervention/Details: decreased balace at EOB Bathing Assistance: Minimal Bathing Location: seated in chair UE Dressing Assistance: Minimal UE Dressing Location: edge of bed UE Dressing Deficit: Retrieval of items, Ties, Buttons, Snaps UE Dressing Skilled Rationale (Verbal/Tactile/Visual/Demonstration): Setup LE Dressing Assistance: Minimal LE Dressing Location: edge of bed LE Dressing Deficit: Don/doff L sock, Don/doff R sock Toilet Assistance: Set up supervision Toileting Location: urinal Toileting Intervention/Details: Pt I with ostomy care earlier in the shift Extremity Assessments: RUE Assessment RUE Assessment: AROM WFL LUE Assessment LUE Assessment: AROM WFL Balance: Sitting Balance Static Sitting-Level of Assistance: Contact guard Dynamic Sitting-Level of Assistance: Minimum assistance Sitting Balance Skilled Intervention/Details: decreased awareness of + LOB Standing Balance Static Standing-Level of Assistance: Contact guard Dynamic Standing-Level of Assistance: Minimum assistance Standing-Balance Support: 2 wheeled walker Standing Balance Skilled Intervention/Details: decreased concern with + LOB and recent falls Neuro: Sensation Sensation Comments: chronic numbness in bilat feet Proprioception Proprioception: intact Gross Coordination Gross Coordination: LUE impaired, RUE intact Fine Motor Coordination Additional Documentation: Yes Fine Motor Coordination Left Hand Thumb/Finger Opposition Skills: mild impairment Right Hand Thumb/Finger Opposition Skills: normal performance Left Hand, Manipulation of Objects: mild impairment Right Hand, Manipulation of Objects: normal performance Skin and Edema: Mobility Assessment: Supine to Sit Mobility [place] Level: Supine->Sit: supervision Bed Features/Set-up: Supine->Sit: Head of bed elevated Sit to Supine Mobility [place] Level: Sit->Supine: supervision Bed Features/Set-up: Sit->Supine: Head of bed elevated Transfer Assessment: Sit to Stand Transfer [place] Level: Sit->Stand: contact guard assist Assistive Device: Sit->Stand: 2 wheeled walker, gait belt Stand to Sit Transfer [place] Level: Stand->Sit: contact guard assist Assistive Device: Stand->Sit: gait belt, 2 wheeled walker Bed-Chair Transfer [place] Level: Bed<->Chair: contact guard assist Assistive Device: Bed<->Chair: gait belt, 2 wheeled walker Toilet Transfer [place] Level: Toilet: minimum assist (75% patient effort) Assistive Device: Toilet: gait belt, 2 wheeled walker Functional Mobility: Functional Mobility [place] Level: Functional Mobility/Gait: minimum assist (75% patient effort) Assistive Device: Functional Mobility/Gait: 2 wheeled walker, gait belt Functional Mobility Distance: Distance needed for common household mobility Outcome Score(s): CURRENT -[facility] Daily Activity Inpatient Short Form Putting on/Taking Off Lower Body Clothin - A Little Assistance Bathin - A Little Assistance Toiletin - A Little Assistance Putting on/Taking Off Upper Body Clothin - A Little Assistance Groomin - A Little Assistance Eatin - No Assistance CURRENT AM-[facility] Activity Raw Score: 19 CURRENT AM-[facility] Activity Functional Limitation/Modifier: 42.80% Currently Impaired in Daily Activity- CK Interventions: Assessment & Plan: Patient was admitted for L side weakness, concerns for CVA vs carotid artery issue and seen for therapy evaluation related to concerns with limited ability to care for self safely. Exam findings include impairments in: balance, coordination, endurance, transfers, vision. These impairments contribute to occupational performance limitations including dressing, bathing, grooming, toileting, functional mobility. Yony Vega is a 68 y/o male admitted for L side numbness and weakness. Pt presents to OT at this time with demonstrate decreased L side strength, balance, R side visual attention, endurance, and+ nystagmus with tracking which limits ability to complete ADLs and care for self. Pt would con't to benefit from direct skilled OT services to address these deficits and needs while in the hospital and s/p disch with 24 hr supervision and assistance. The following factors impact the plan of care: recent falls at home Psychosocial Factors Positive indicators for performance: Active participation in community/group program, Adequate support system Possible barriers for performance: None Patient will benefit from skilled occupational therapy to address these impairments, occupational performance limitations, and participation restrictions. Patient's rehab potential is: good. Planned Therapy Interventions (OT Eval): ADL retraining, balance training, fine motor coordination training, functional activity tolerance, transfer training Patient Instruction/Education this session: Learners: Patient, Partner Education provided: Discharge recommendations Teaching method: Verbal Education/Instruction Learner response: States/Identifies/Teaches back Plan for next session: Visual scanning focus Acute OT Goals Plan of Care by Steffany Cruz OT at 11/12/2023 2:52 PM Version 1 of 1 Problem: OT - ADLs Goal: Bathing - Patient will perform full body bathing routine with modified independence while seated for improved ability to complete self-care activities Outcome: Ongoing Problem: OT - Transfers Goal: Transfers Toilet/ Bedside Commode - Patient will transfer to/from toilet with modified independence for improved ability to safely complete ADLs. Outcome: Ongoing Problem: OT - Balance Goal: Balance - Standing - Patient will perform 7 minutes of functional task in standing with modified independence and good balance to promote safety and improved balance required for self-care activities. Outcome: Ongoing Problem: OT - Strength/ROM Goal: Strength/ROM ADL Participation - Patient will participate in UE exercise program with modified independence to prevent deconditioning while in hospital and to max UE ROM/Coordination/strength for ADLs. Outcome: Ongoing Problem: OT - Vision Goal: Visual Scanning Functional Mobility - Patient will use appropriate visual scanning techniqueswith no cues during functional mobility to promote safety and success during daily routine without hitting items on his right. Outcome: Ongoing Problem: OT - Other Goal: Energy Conservation Task Recall - Patient will independently recall 3 energy conservation principles to increase functional activity tolerance during ADLs, IADLs, and functional mobility tasks. Outcome: Ongoing OT treatment consisted of the following to work and progress towards the above goal(s): OT Evaluation and Treatment Time OT Evaluation (Moderate) Time Entry: 33 Evaluating Therapist: Steffany Cruz OT Additional Details: OT Co-Eval/Treatment Information Co-evaluation/co-treatment performed?: Yes, simultaneous billable skilled care was necessary due tomedical complexity and functional deficits Other discipline: PT Rationale for need to co-eval/treat: coordination issues, postural control OT Evaluation Complexity Occupational Profile and Client History: Moderate - expanded history Assessment of Occupational Performance: Moderate (3-5 performance deficits) Clinical Decision/Performance Deficits: Moderate (detailed assessments w/several treatment options) Time In: 1315 Time Out: 1348 Total Visit Time: 33 minutes Total Treatment Time (skilled, billable minutes): 33 minutes Assisted by during session: PT-Hilary PPE used during patient interaction: facemask, gloves Patient location at end of session: bed with head of bed elevated Alarms on at end of session: RN aware, bed alarm Needs in reach. Upon discontinuation of Acute Care Occupational Therapy Services or patient discharge from the hospital this note represents the current Occupational Therapy Discharge Summary. Steffany Cruz OTD MS OTR/L License [id number] * Hilary Douglas, PT - 11/12/2023 1:16 PM EDT Acute Physical Therapy Evaluation Prior to Admission AMPAC score(s): PRIOR LEVEL AM-PAC Mobility Raw Score: 24 Current AM-PAC score(s): CURRENT AM-PAC Mobility Raw Score: 18 Based on the above AM-PAC score(s) and PT clinical judgment, patient is a good candidate for discharge to Long-Term Facility Barriers to discharge home: Lack of social support to meet functional needs at home, Patient unableto navigate stairs to enter home, Lack of supervision necessary to mitigate fall risk Mobility equipment available at home: 2 wheeled walker, rollator ADL equipment available at home: shower chair, grab bars, hand held shower hose, elevated toilet seat Equipment needed for discharge: to be determined Current therapy frequency recommendation in acute: Therapy Frequency: 5 times a week Activity Recommendations for outside of rehab session: Up to the chair for meals using gait belt and ww Precautions and Weightbearing Status: Existing Precautions/Restrictions: fall (Pt and state he has fallen several times in the past 6 months) Telemetry Patient Safety Communication Prior to Visit: Nursing Subjective: Pt supine and agreeable to PT. RN states she got pt up earlier and he was very unsteady. Pain: General Pain Documentation (Adult, OB, Peds) Presence of Pain: denies pain/discomfort Presence of Pain Score (Auto-calculated): 0 Home Setting Residence: House Lives With: spouse First floor setup: bedroom, tub shower Second floor setup: (1fight to basement, doesn't use) Number of stairs to enter home: 2 Mobility Equipment Available: 2 wheeled walker, rollator ADL Equipment Available: shower chair, grab bars, hand held shower hose, elevated toilet seat Home Environment Details: works out of the house, he is home alone and moving several hours a day (half dozen falls over the past month) Previous Level of Function Dominant Hand: Right Bed Mobility/Transfers: other (see comments) Assistive Device: 4 wheeled walker, 2 wheeled walker Level of Ambulation: household Prior Level of Function Details: able to do simple meal prep, 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 O2 Device: room air Cognition Overall Cognitive Status: Within Functional Limits Arousal/Alertness: Appropriate responses to stimuli Orientation Level: Oriented X4 Following Commands: Follows all commands and directions without difficulty Safety Judgment: Good awareness of safety precautions Awareness of Errors: Good awareness of errors made Deficits: Fully aware of deficits Cognition Comments: Pt reports recent hallucinations in ED but not at present Vision Screen Currently wearing corrective lenses: Yes Clinical Observations: planned surgery 11/13/23 to remove scar tissue (nystagmus with L to R tracking, unable to track up/down, difficulty with convergence) Speech Speech: no gross deficits noted Hearing Hearing: no gross deficits noted Extremity Assessments: RUE Assessment RUE Assessment: Within Functional Limits LUE Assessment LUE Assessment: Within Functional Limits RLE Assessment RLE Assessment: Within Functional Limits LLE Assessment LLE Assessment: Within Functional Limits Sensation Overall Sensation: Impaired Sensation Comments: Numbness and tingling in bilat feet - neuropathy Fine Motor Coordination Additional Documentation: Yes Fine Motor Coordination Left Hand Thumb/Finger Opposition Skills: mild impairment Right Hand Thumb/Finger Opposition Skills: normal performance Left Hand, Manipulation of Objects: mild impairment Right Hand, Manipulation of Objects: normal performance Mobility Assessment: Rolling/Turning Mobility [place] Level: Rolling/Turning: independent Scooting Bridging Mobility [place] Level: Scooting/Bridging: not tested Supine to Sit Mobility [place] Level: Supine->Sit: supervision Bed Features/Set-up: Supine->Sit: Head of bed elevated Sit to Supine Mobility [place] Level: Sit->Supine: supervision Bed Features/Set-up: Sit->Supine: Head of bed elevated Balance: Sitting Balance Static Sitting-Level of Assistance: Contact guard Dynamic Sitting-Level of Assistance: Minimum assistance Sitting Balance Skilled Intervention/Details: posterior LOB with decreased awareness by pt Standing Balance Static Standing-Level of Assistance: Contact guard Dynamic Standing-Level of Assistance: Minimum assistance Standing-Balance Support: Gait belt, 2 wheeled walker Transfer Assessment: Sit to Stand Transfer [place] Level: Sit->Stand: contact guard assist Assistive Device: Sit->Stand: gait belt, 2 wheeled walker Stand to Sit Transfer [place] Level: Stand->Sit: contact guard assist Assistive Device: Stand->Sit: gait belt, 2 wheeled walker Bed-Chair Transfer [place] Level: Bed<->Chair: not tested Gait/Functional Mobility: Gait Assessment [place] Level: Gait: minimum assist (75% patient effort) Assistive Device: Gait: gait belt, 2 wheeled walker Ambulation Distance (Feet): 100 Gait Deviations Identified: decreased jomar, decreased gait speed, decreased heel strike, decreased step length, decreased stride length Skilled Intervention/Details - Gait: Slower processing noted on the LLE as well as occasional foot drag on the left Wheelchair Assessment Patient currently uses wheelchair?: No Stairs: Stairs Assessment [place] Level: Stair Negotiation: not tested Outcome Score(s): CURRENT AM-PAC Basic Mobility Inpatient Short Form Turning over in bed: 4 - No Assistance Moving from lying on back to sittin - A Little Assistance Moving to and from bed to chair: 3 - A Little Assistance Sitting/standing from chair: 3 - A Little Assistance Walk in hospital room: 3 - A Little Assistance Climbing 3-5 steps with a railin - A Lot of Assistance CURRENT [facility] Mobility Raw Score: 18 CURRENT [facility] Mobility Functional Limitation: 46.58% Impaired in Basic Mobility Assessment & Plan: Patient presented with transient increased left sided numbness (lasted 10 minutes) and headache. Hecomplains of 2 weeks of worsening weakness and dizziness (room spinning) and hallucinations. He is seen for therapy evaluation related to deficits in activity tolerance, endurance, balance and functional strength impacting overall functional mobility. Exam findings include impairments in: Strength, Balance, Posture, Transfers, Gait/Locomotion. Theseimpairments contribute to functional limitations including Decreased ambulation distance/endurance,Difficulty stair climbing/descent, Increased fall risk, Difficulty with bed mobility, Difficulty with transfers, Decreased functional mobility. Current clinical presentation is Evolving - changing/inconsistent clinical characteristics (Moderate). Patient history factors impacting Plan Of Care include . Patient will benefit from skilled physical therapy to address these impairments, functional limitations, and participation restrictions andhas good rehab potential to achieve therapy goals. Planned Therapy Interventions: balance training, bed mobility training, functional activity tolerance, gait training, postural re-education, transfer training Patient Instruction/Education this session: Learners: Patient, Spouse Education provided: Discharge recommendations, Plan of care Teaching method: Verbal Education/Instruction Learner response: Applies knowledge, States/Identifies/Teaches back Learning preferences: Auditory Learning considerations: No barriers/ready to learn Plan for next session: Gait and standing balance training using ww for support Acute PT Goals Plan of Care by Hilary Douglas, PT at 11/12/2023 1:16 PM Version 1 of 1 Problem: PT - General Goals Goal: Supine <-> Sit Transfers - Patient will perform supine to/from sit transfers with modified independence and without use of hospital bed features in order to improve functional mobility and safety. Outcome: Progressing Goal: Sitting Endurance/Balance - Patient will perform seated balance tasks for 15 minutes with supervision and unilateral UE support while maintaining an RPE of less than 2/10 to improve endurance and safety with seated tasks. Outcome: Progressing Goal: Sit <-> Stand Transfers - Patient will perform sit to/from stand transfers with supervision and wheeled walker in order to improve functional mobility and safety. Outcome: Progressing Goal: Standing Endurance/Balance - Patient will perform standing balance tasks for 10 min with supervision and wheeled walker while maintaining an RPE of less than 2/10 to improve endurance and safety with standing tasks. Outcome: Progressing Goal: Stand/Squat Pivot Transfers - Patient will perform stand pivot transfer to/from bed/chair/commode with supervision and wheeled walker in order to improve functional mobility and safety. Outcome: Progressing Goal: Ambulation - Patient will ambulate 300 feet with supervision and wheeled walker to improve ability to safely navigate home and community. Outcome: Progressing Goal: Stairs - Patient will ascend/descend 2 stairs with contact guard assistance, without an assistive device, and single railing(s) to improve ability to safely navigate home and community. Outcome: Progressing PT treatment consisted of the following to progress towards the above goal(s): PT Evaluation and Treatment Time PT Evaluation (Moderate) Time Entry: 29 Evaluating Therapist: Hilary Douglas PT Additional Details: PT Co-Eval/Treatment Information Co-evaluation/co-treatment performed?: Yes, simultaneous billable skilled care was necessary due tomedical complexity and functional deficits Other discipline: OT Rationale for need to co-eval/treat: postural control Evaluation Complexity Components History: High (3 personal factors and/or comorbidities) Body Systems Review: Moderate (Addressing a total of 3 or more elements) Clinical Presentation: Evolving - changing/inconsistent clinical characteristics (Moderate) Clinical Decision Making: Moderate Time In: 1316 Time Out: 1345 Total Visit Time: 29 minutes Total Treatment Time (skilled, billable minutes): 29 minutes PPE used during patient interaction: facemask, gloves Patient location at end of session: bed with head of bed elevated Alarms on at end of session: bed alarm, RN aware Needs in reach. Upon discontinuation of Acute Care Physical Therapy Services or patient discharge from the hospitalthis note represents the current Physical Therapy Discharge Summary. [facility] Miscellaneous Notes* Nursing Notes - Emilee Au RN - 11/28/2023 10:24 AM EDT Discharge order received. Called report to facility. AVS and MARILIN printed and faxed to facility. Transport set up for 1400 per CM note. 1415: Ambulance transport arrived. PIV removed per protocol. 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) * Plan of Care - Regina Cabezas RN - 11/28/2023 7:04 AM EDT Problem: Adult Inpatient Plan of Care Goal: Plan of Care Review Outcome: Progressing Goal: Patient-Specific Goal (Individualized) Outcome: Progressing Goal: Absence of Hospital-Acquired Illness or Injury Outcome: Progressing Goal: Optimal Comfort and Wellbeing Outcome: Progressing Goal: Readiness for Transition of Care Outcome: Progressing Problem: Stroke, Ischemic (Includes Transient Ischemic Attack) Goal: Optimal Coping Outcome: Progressing Goal: Effective Bowel Elimination Outcome: Progressing Goal: Optimal Cerebral Tissue Perfusion Outcome: Progressing Goal: Optimal Cognitive Function Outcome: Progressing Goal: Improved Communication Skills Outcome: Progressing Goal: Optimal Functional Ability Outcome: Progressing Goal: Optimal Nutrition Intake Outcome: Progressing Goal: Effective Oxygenation and Ventilation Outcome: Progressing Goal: Improved Sensorimotor Function Outcome: Progressing Problem: Oral Intake Inadequate Goal: Improved Oral Intake Outcome: Progressing * Plan of Care - Patricia Rand RN - 11/27/2023 9:49 PM EDT Problem: Adult Inpatient Plan of Care Goal: Plan of Care Review Outcome: Progressing Goal: Patient-Specific Goal (Individualized) Outcome: Progressing Goal: Absence of Hospital-Acquired Illness or Injury Outcome: Progressing Goal: Optimal Comfort and Wellbeing Outcome: Progressing Goal: Readiness for Transition of Care Outcome: Progressing * Plan of Care - Nito Ordoñez OT - 11/27/2023 11:51 AM EDT Problem: OT - Transfers Goal: Transfers Toilet/ Bedside Commode - Patient will transfer to/from toilet with modified independence for improved ability to safely complete ADLs. Outcome: Progressing Problem: OT - Balance Goal: Balance - Standing - Patient will perform 7 minutes of functional task in standing with modified independence and good balance to promote safety and improved balance required for self-care activities. Outcome: Progressing Problem: OT - Vision Goal: Visual Scanning Functional Mobility - Patient will use appropriate visual scanning techniqueswith no cues during functional mobility to promote safety and success during daily routine without hitting items on his right. Outcome: Progressing * Plan of Care - Macey Gleason PT - 11/27/2023 8:08 AM EDT Problem: PT - General Goals Goal: Supine <-> Sit Transfers - Patient will perform supine to/from sit transfers with standby assistance and without use of hospital bed features in order to improve functional mobility and safety. Outcome: Progressing * Plan of Care - Brian Goodrich RN - 11/26/2023 10:59 PM EDT Problem: Adult Inpatient Plan of Care Goal: Plan of Care Review Outcome: Progressing Goal: Patient-Specific Goal (Individualized) Outcome: Progressing Goal: Absence of Hospital-Acquired Illness or Injury Outcome: Progressing Goal: Optimal Comfort and Wellbeing Outcome: Progressing Goal: Readiness for Transition of Care Outcome: Progressing Problem: OT - ADLs Goal: Bathing - Patient will perform full body bathing routine with modified independence while seated for improved ability to complete self-care activities Outcome: Progressing Problem: OT - Transfers Goal: Transfers Toilet/ Bedside Commode - Patient will transfer to/from toilet with modified independence for improved ability to safely complete ADLs. Outcome: Progressing Problem: OT - Balance Goal: Balance - Standing - Patient will perform 7 minutes of functional task in standing with modified independence and good balance to promote safety and improved balance required for self-care activities. Outcome: Progressing Problem: OT - Strength/ROM Goal: Strength/ROM ADL Participation - Patient will participate in UE exercise program with modified independence to prevent deconditioning while in hospital and to max UE ROM/Coordination/strength for ADLs. Outcome: Progressing Problem: OT - Vision Goal: Visual Scanning Functional Mobility - Patient will use appropriate visual scanning techniqueswith no cues during functional mobility to promote safety and success during daily routine without hitting items on his right. Outcome: Progressing Problem: OT - Other Goal: Energy Conservation Task Recall - Patient will independently recall 3 energy conservation principles to increase functional activity tolerance during ADLs, IADLs, and functional mobility tasks. Outcome: Progressing Problem: PT - General Goals Goal: Supine <-> Sit Transfers - Patient will perform supine to/from sit transfers with standby assistance and without use of hospital bed features in order to improve functional mobility and safety. Outcome: Progressing Goal: Sit <-> Stand Transfers - Patient will perform sit to/from stand transfers with standbyassistance and wheeled walker in order to improve functional mobility and safety. Outcome: Progressing Goal: Ambulation - Patient will ambulate 150 feet with standby assistance and wheeled walker to improve ability to safely navigate home and community. Outcome: Progressing Problem: Stroke, Ischemic (Includes Transient Ischemic Attack) Goal: Optimal Coping Outcome: Progressing Goal: Effective Bowel Elimination Outcome: Progressing Goal: Optimal Cerebral Tissue Perfusion Outcome: Progressing Goal: Optimal Cognitive Function Outcome: Progressing Goal: Improved Communication Skills Outcome: Progressing Goal: Optimal Functional Ability Outcome: Progressing Goal: Optimal Nutrition Intake Outcome: Progressing Goal: Effective Oxygenation and Ventilation Outcome: Progressing Goal: Improved Sensorimotor Function Outcome: Progressing Problem: PT - Outcome Measure Goals Goal: [facility] - Patient will demonstrate an improvement in AM-PAC Inpatient Mobility Short Form of atleast 4.5 points (MDC), in order to demonstrate an improvement in functional mobility. Outcome: Progressing Problem: Oral Intake Inadequate Goal: Improved Oral Intake Outcome: Progressing * Plan of Care - Brooklyn Pandey RN - 11/26/2023 2:28 PM EDT Problem: Adult Inpatient Plan of Care Goal: Plan of Care Review Outcome: Progressing Goal: Patient-Specific Goal (Individualized) Outcome: Progressing Goal: Absence of Hospital-Acquired Illness or Injury Outcome: Progressing Goal: Optimal Comfort and Wellbeing Outcome: Progressing Goal: Readiness for Transition of Care Outcome: Progressing Problem: Oral Intake Inadequate Goal: Improved Oral Intake Outcome: Progressing * Plan of Care - Brian Goodrich RN - 11/26/2023 2:49 AM EDT Problem: Adult Inpatient Plan of Care Goal: Plan of Care Review Outcome: Progressing Goal: Patient-Specific Goal (Individualized) Outcome: Progressing Goal: Absence of Hospital-Acquired Illness or Injury Outcome: Progressing Goal: Optimal Comfort and Wellbeing Outcome: Progressing Goal: Readiness for Transition of Care Outcome: Progressing Problem: OT - ADLs Goal: Bathing - Patient will perform full body bathing routine with modified independence while seated for improved ability to complete self-care activities Outcome: Progressing Problem: OT - Transfers Goal: Transfers Toilet/ Bedside Commode - Patient will transfer to/from toilet with modified independence for improved ability to safely complete ADLs. Outcome: Progressing Problem: OT - Balance Goal: Balance - Standing - Patient will perform 7 minutes of functional task in standing with modified independence and good balance to promote safety and improved balance required for self-care activities. Outcome: Progressing Problem: OT - Strength/ROM Goal: Strength/ROM ADL Participation - Patient will participate in UE exercise program with modified independence to prevent deconditioning while in hospital and to max UE ROM/Coordination/strength for ADLs. Outcome: Progressing Problem: OT - Vision Goal: Visual Scanning Functional Mobility - Patient will use appropriate visual scanning techniqueswith no cues during functional mobility to promote safety and success during daily routine without hitting items on his right. Outcome: Progressing Problem: OT - Other Goal: Energy Conservation Task Recall - Patient will independently recall 3 energy conservation principles to increase functional activity tolerance during ADLs, IADLs, and functional mobility tasks. Outcome: Progressing Problem: PT - General Goals Goal: Supine <-> Sit Transfers - Patient will perform supine to/from sit transfers with standby assistance and without use of hospital bed features in order to improve functional mobility and safety. Outcome: Progressing Goal: Sit <-> Stand Transfers - Patient will perform sit to/from stand transfers with standbyassistance and wheeled walker in order to improve functional mobility and safety. Outcome: Progressing Goal: Ambulation - Patient will ambulate 150 feet with standby assistance and wheeled walker to improve ability to safely navigate home and community. Outcome: Progressing Problem: Stroke, Ischemic (Includes Transient Ischemic Attack) Goal: Optimal Coping Outcome: Progressing Goal: Effective Bowel Elimination Outcome: Progressing Goal: Optimal Cerebral Tissue Perfusion Outcome: Progressing Goal: Optimal Cognitive Function Outcome: Progressing Goal: Improved Communication Skills Outcome: Progressing Goal: Optimal Functional Ability Outcome: Progressing Goal: Optimal Nutrition Intake Outcome: Progressing Goal: Effective Oxygenation and Ventilation Outcome: Progressing Goal: Improved Sensorimotor Function Outcome: Progressing Problem: PT - Outcome Measure Goals Goal: [facility] - Patient will demonstrate an improvement in AM-PAC Inpatient Mobility Short Form of atleast 4.5 points (MDC), in order to demonstrate an improvement in functional mobility. Outcome: Progressing Problem: Oral Intake Inadequate Goal: Improved Oral Intake Outcome: Progressing * Nursing Notes - Brooklyn Pandey RN - 11/25/2023 4:07 PM EDT 1600: Pt changes ostomy bag every other day at home himself. Supplies given at bedside for pt to change bag. Stated he will change his bag here soon. * Plan of Care - Brooklyn Pandey RN - 11/25/2023 3:14 PM EDT Problem: Adult Inpatient Plan of Care Goal: Plan of Care Review Outcome: Progressing Goal: Patient-Specific Goal (Individualized) Outcome: Progressing Goal: Absence of Hospital-Acquired Illness or Injury Outcome: Progressing Goal: Optimal Comfort and Wellbeing Outcome: Progressing Goal: Readiness for Transition of Care Outcome: Progressing Problem: Oral Intake Inadequate Goal: Improved Oral Intake Outcome: Progressing * Plan of Care - Brian Goodrich RN - 11/25/2023 3:07 AM EDT Problem: Adult Inpatient Plan of Care Goal: Plan of Care Review Outcome: Progressing Goal: Patient-Specific Goal (Individualized) Outcome: Progressing Goal: Absence of Hospital-Acquired Illness or Injury Outcome: Progressing Goal: Optimal Comfort and Wellbeing Outcome: Progressing Goal: Readiness for Transition of Care Outcome: Progressing Problem: OT - ADLs Goal: Bathing - Patient will perform full body bathing routine with modified independence while seated for improved ability to complete self-care activities Outcome: Progressing Problem: OT - Transfers Goal: Transfers Toilet/ Bedside Commode - Patient will transfer to/from toilet with modified independence for improved ability to safely complete ADLs. Outcome: Progressing Problem: OT - Balance Goal: Balance - Standing - Patient will perform 7 minutes of functional task in standing with modified independence and good balance to promote safety and improved balance required for self-care activities. Outcome: Progressing Problem: OT - Strength/ROM Goal: Strength/ROM ADL Participation - Patient will participate in UE exercise program with modified independence to prevent deconditioning while in hospital and to max UE ROM/Coordination/strength for ADLs. Outcome: Progressing Problem: OT - Vision Goal: Visual Scanning Functional Mobility - Patient will use appropriate visual scanning techniqueswith no cues during functional mobility to promote safety and success during daily routine without hitting items on his right. Outcome: Progressing Problem: OT - Other Goal: Energy Conservation Task Recall - Patient will independently recall 3 energy conservation principles to increase functional activity tolerance during ADLs, IADLs, and functional mobility tasks. Outcome: Progressing Problem: PT - General Goals Goal: Supine <-> Sit Transfers - Patient will perform supine to/from sit transfers with standby assistance and without use of hospital bed features in order to improve functional mobility and safety. Outcome: Progressing Goal: Sit <-> Stand Transfers - Patient will perform sit to/from stand transfers with standbyassistance and wheeled walker in order to improve functional mobility and safety. Outcome: Progressing Goal: Ambulation - Patient will ambulate 150 feet with standby assistance and wheeled walker to improve ability to safely navigate home and community. Outcome: Progressing Problem: Stroke, Ischemic (Includes Transient Ischemic Attack) Goal: Optimal Coping Outcome: Progressing Goal: Effective Bowel Elimination Outcome: Progressing Goal: Optimal Cerebral Tissue Perfusion Outcome: Progressing Goal: Optimal Cognitive Function Outcome: Progressing Goal: Improved Communication Skills Outcome: Progressing Goal: Optimal Functional Ability Outcome: Progressing Goal: Optimal Nutrition Intake Outcome: Progressing Goal: Effective Oxygenation and Ventilation Outcome: Progressing Goal: Improved Sensorimotor Function Outcome: Progressing Problem: PT - Outcome Measure Goals Goal: [facility] - Patient will demonstrate an improvement in AM-PAC Inpatient Mobility Short Form of atleast 4.5 points (MDC), in order to demonstrate an improvement in functional mobility. Outcome: Progressing Problem: Oral Intake Inadequate Goal: Improved Oral Intake Outcome: Progressing * Plan of Care - Macey Gleason, PT - 11/24/2023 12:53 PM EDT Problem: PT - General Goals Goal: Supine <-> Sit Transfers - Patient will perform supine to/from sit transfers with standby assistance and without use of hospital bed features in order to improve functional mobility and safety. Outcome: Progressing Goal: Sit <-> Stand Transfers - Patient will perform sit to/from stand transfers with standbyassistance and wheeled walker in order to improve functional mobility and safety. Outcome: Progressing Goal: Ambulation - Patient will ambulate 150 feet with standby assistance and wheeled walker to improve ability to safely navigate home and community. Outcome: Progressing Problem: PT - Outcome Measure Goals Goal: [facility] - Patient will demonstrate an improvement in -[facility] Inpatient Mobility Short Form of atleast 4.5 points (MDC), in order to demonstrate an improvement in functional mobility. Outcome: Progressing * Plan of Care - Dorothy Ocasio MD - 11/24/2023 10:07 AM EDT Contacted by primary team regarding elevated CO2 on blood gases and question about home NIPPV. His last few VBG's are consistent with primary metabolic alkalosis. He may have some respiratory acidosis mixed but difficult to fully interpret on VBG. He has been receiving diuresis and has been onnocturnal BiPAP during this admission. He had a normal ABG on 11/17. Elevated CO2 on VBG is compensatory from metabolic alkalosis, which is from diuresis. He does not need BiPAP and would recommend stopping nocturnal BiPAP as this can worsen the alkalosis. If he uses CPAP at home, he can continue using nocturnal CPAP during this admission. RT can assist with settings if he does not know his home settings. Recommend outpatient sleep study and sleep medicine referral outpatient for sleep apnea evaluation. * Plan of Care - Nito Ordoñez OT - 11/24/2023 9:43 AM EDT Problem: OT - Transfers Goal: Transfers Toilet/ Bedside Commode - Patient will transfer to/from toilet with modified independence for improved ability to safely complete ADLs. Outcome: Progressing Problem: OT - Balance Goal: Balance - Standing - Patient will perform 7 minutes of functional task in standing with modified independence and good balance to promote safety and improved balance required for self-care activities. Outcome: Progressing Problem: OT - Vision Goal: Visual Scanning Functional Mobility - Patient will use appropriate visual scanning techniqueswith no cues during functional mobility to promote safety and success during daily routine without hitting items on his right. Outcome: Progressing * Plan of Care - Ana Tolliver RN - 11/24/2023 3:32 AM EDT Problem: Adult Inpatient Plan of Care Goal: Readiness for Transition of Care Outcome: Progressing Problem: Stroke, Ischemic (Includes Transient Ischemic Attack) Goal: Optimal Cognitive Function Outcome: Not Progressing Goal: Improved Communication Skills Outcome: Progressing Goal: Effective Oxygenation and Ventilation Outcome: Progressing Goal: Safe and Effective Swallow Outcome: Adequate for Discharge Goal: Effective Urinary Elimination Outcome: Adequate for Discharge * Plan of Care - Ana Tolliver RN - 11/23/2023 4:24 AM EDT Problem: Adult Inpatient Plan of Care Goal: Optimal Comfort and Wellbeing Outcome: Progressing Patient endorsed comfort and feeling well throughout the shift, denied all pain. Problem: Stroke, Ischemic (Includes Transient Ischemic Attack) Goal: Optimal Cognitive Function Outcome: Progressing Patient remained oriented with cognitive function within normal limits throughout the shift. Goal: Effective Oxygenation and Ventilation Outcome: Progressing Patient was weaned from 45L/70% HHFNC to 2L NC and tolerated well. Goal: Safe and Effective Swallow Outcome: Progressing Patient had diet advanced today safely. Goal: Effective Urinary Elimination Outcome: Progressing Urine output has increased and remains adequate. * Plan of Care - JUANCARLOS Brady - 11/22/2023 10:43 AM EDT Problem: Dysphagia Goal: Education 1 - Patient and/or caregiver will verbalize 2-3 swallow deficits and ways to reducerisks associated with aspiration when provided minimal cues to improve insight and understanding regarding current oropharyngeal swallow function Outcome: Met * Plan of Care - Ana Tolliver RN - 11/22/2023 4:23 AM EDT Problem: Adult Inpatient Plan of Care Goal: Optimal Comfort and Wellbeing Outcome: Progressing Patient denied pain throughout shift and verbalized comfort. Problem: Stroke, Ischemic (Includes Transient Ischemic Attack) Goal: Effective Bowel Elimination Outcome: Progressing Positive stool/flatus from ostomy throughout shift. Goal: Optimal Cognitive Function Outcome: Progressing Patient remained oriented throughout shift. Goal: Effective Oxygenation and Ventilation Outcome: Progressing Patient was able to tolerating weaning down on O2. Goal: Safe and Effective Swallow Outcome: Not Progressing Patient unable to pass bedside swallow with ENTRY LEVEL MARKETING ASSISTANT. * Plan of Care - Shekhar Escamilla PT - 11/21/2023 1:43 PM EDT Problem: PT - General Goals Goal: Supine <-> Sit Transfers - Patient will perform supine to/from sit transfers with standby assistance and without use of hospital bed features in order to improve functional mobility and safety. Outcome: Progressing Goal: Sit <-> Stand Transfers - Patient will perform sit to/from stand transfers with standbyassistance and wheeled walker in order to improve functional mobility and safety. Outcome: Progressing Goal: Ambulation - Patient will ambulate 150 feet with standby assistance and wheeled walker to improve ability to safely navigate home and community. Outcome: Progressing * Plan of Care - Molly Michel MD - 11/21/2023 10:34 AM EDT Vascular Surgery Chief Resident Plan of Care Sp TCAR on 11/15 and LHC on 11/19. ERT and stroke code called for new AMS and cf stroke. Patient unable to identify objects, endorsed visual changes and worsen left-sided weakness from baseline. Subsequently was able to reorient conversationally on examination, however visual changes and weakness persisted. ROS otherwise negative. Remains haemodynamically stable on HHFNC 45L 80% FiO2. Heparin stopped this morning, on DAPT. STAT CTH. Repeat Labs. Molly Michel MD PhD General Surgery * Plan of Care - Bessie Bean OT - 11/21/2023 10:30 AM EDT Problem: OT - Transfers Goal: Transfers Toilet/ Bedside Commode - Patient will transfer to/from toilet with modified independence for improved ability to safely complete ADLs. Outcome: Progressing Problem: OT - Balance Goal: Balance - Standing - Patient will perform 7 minutes of functional task in standing with modified independence and good balance to promote safety and improved balance required for self-care activities. Outcome: Progressing Problem: OT - Vision Goal: Visual Scanning Functional Mobility - Patient will use appropriate visual scanning techniqueswith no cues during functional mobility to promote safety and success during daily routine without hitting items on his right. Outcome: Progressing * Plan of Care - Tanya Newman RN - 11/21/2023 1:50 AM EDT Problem: Adult Inpatient Plan of Care Goal: Plan of Care Review Outcome: Progressing Goal: Patient-Specific Goal (Individualized) Outcome: Progressing Goal: Absence of Hospital-Acquired Illness or Injury Outcome: Progressing Goal: Optimal Comfort and Wellbeing Outcome: Progressing Goal: Readiness for Transition of Care Outcome: Progressing Problem: Stroke, Ischemic (Includes Transient Ischemic Attack) Goal: Optimal Coping Outcome: Progressing Goal: Effective Bowel Elimination Outcome: Progressing Goal: Optimal Cerebral Tissue Perfusion Outcome: Progressing Goal: Optimal Cognitive Function Outcome: Progressing Goal: Improved Communication Skills Outcome: Progressing Goal: Optimal Functional Ability Outcome: Progressing Goal: Optimal Nutrition Intake Outcome: Progressing Goal: Effective Oxygenation and Ventilation Outcome: Progressing Goal: Improved Sensorimotor Function Outcome: Progressing Goal: Safe and Effective Swallow Outcome: Progressing Goal: Effective Urinary Elimination Outcome: Progressing Problem: Oral Intake Inadequate Goal: Improved Oral Intake Outcome: Progressing * Plan of Care - Renay Herron MD - 11/20/2023 7:58 PM EDT Vascular Surgery Plan of Care Yony Vega is currently in ICU after TCAR on bipap now s/p cardiac cath for NSTEMI this afternoon, no intervention Plan: - Will discontinue heparin, please do not restart - Continue DAPT - Will discuss lasix with ICU - Femoral sheath to be removed per protocol (patient currently with AT and PT signal on LLE, motor and sensation intact) Renay Herron MD Integrated Vascular Surgery PGY-4 * Brief Op Note - Karla Gonzalez MD - 11/20/2023 6:45 PM EDT Preliminary Report - Brief Cardiac Catheterization Procedure Note Yony Vega ([id number]) Pre Procedural Diagnosis NSTEMI (non-ST elevated myocardial infarction) [I21.4] Post Procedural Diagnosis Obstructive CAD Procedure Performed Left heart catheterization, Coronary angiogram, and Bypass angiogram Access Site/Hemostasis Right femoral artery, Sheath left in Findings Left Ventricular End Diastolic Pressure: Elevated Left Ventricular Ejection Fraction: Not assessed Preliminary Results of Angiography Obstructive ambler CAD (occluded RCA, occluded LM) 3 patent grafts ([id number], SVG-rPDA, SVG-OM) Percutaneous Coronary Intervention No Intervention Intraprocedure Anticoagulation Heparin Post-procedure Anticoagulation Anticoagulation to be restarted: Yes, restart therapeutic anticoagulation 4 hours after hemostasis achieved without a bolus. Post-procedure anticoagulation already ordered: No, call primary care team to have heparin infusionre-initiated Estimated Blood Loss Minimal Complications None Admission Does patient need to be admitted: Currently admitted Surgeon Surgeons and Role: * Abelardo Santiago Jr., MD - Primary * Karla Gonzalez MD - Fellow * Vonda Griggs MD, MBBS - Fellow Procedural Staff Sedation Nurse: Quynh Foote, RASHI; Jose Eduardo Barreto RN Documenter: Regina Flores RN; Bozena Marte RT Full report to follow Karla Gonzalez MD November 20, 2023 6:45 PM * Nursing Notes - Shekhar Soto RN - 11/20/2023 5:38 PM EDT This RN called pt spouse José to 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 * Plan of Care - Catalina Moreno RD - 11/20/2023 12:46 PM EDT Problem: Oral Intake Inadequate Goal: Improved Oral Intake Outcome: Progressing Nutrition Recommendations and Plan of Care: 1. S/p LHC, resume a Carb Controlled Diet 2. Nutrition will continue to follow per policy and assess more frequently if needed * Plan of Care - Shekhar Escamilla PT - 11/20/2023 11:53 AM EDT Problem: PT - General Goals Goal: Supine <-> Sit Transfers - Patient will perform supine to/from sit transfers with standby assistance and without use of hospital bed features in order to improve functional mobility and safety. Outcome: Progressing Goal: Sit <-> Stand Transfers - Patient will perform sit to/from stand transfers with standbyassistance and wheeled walker in order to improve functional mobility and safety. Outcome: Progressing Goal: Ambulation - Patient will ambulate 150 feet with standby assistance and wheeled walker to improve ability to safely navigate home and community. Outcome: Progressing * Plan of Care - Bessie Bean OT - 11/20/2023 11:01 AM EDT Problem: OT - Transfers Goal: Transfers Toilet/ Bedside Commode - Patient will transfer to/from toilet with modified independence for improved ability to safely complete ADLs. Outcome: Progressing Problem: OT - Balance Goal: Balance - Standing - Patient will perform 7 minutes of functional task in standing with modified independence and good balance to promote safety and improved balance required for self-care activities. Outcome: Progressing * Nursing Notes - Patsy May RN - 11/20/2023 9:10 AM EDT Spoke with Raoul Cobos,ADRIÁN about NPH; Pt is NPO and BG at 6am was [id number] and rechecked it now and it [id number]. Go ahead and give NPH per ADRIÁN * Plan of Care - Nanette Cameron RN - 11/19/2023 6:46 PM EDT Problem: Adult Inpatient Plan of Care Goal: Plan of Care Review Outcome: Progressing Goal: Patient-Specific Goal (Individualized) Outcome: Progressing Goal: Absence of Hospital-Acquired Illness or Injury Outcome: Progressing Goal: Optimal Comfort and Wellbeing Outcome: Progressing Goal: Readiness for Transition of Care Outcome: Progressing Problem: Swallowing Impairment Goal: Optimal Eating/Swallowing without Aspiration Outcome: Progressing * Plan of Care - Noah Blanchard MD - 11/18/2023 8:12 PM EDT Was called to bedside for critical lab of troponin 3685 (increased from 2606). At bedside patient was HDS. HR 70-80s and MAP >65. Still on 9L HF satting 92- 95%. However whenever patient moved satsdrops to low-mid 80s. Patient had appropriate mentation and did not appear to be in distress. RN did note that since the start of her shift patient appearde to be more tired. Repeat EKG showed improved ST abnormalities. VBG showed pCO2 44 and lactate of 2 (increased from 1.7). Cardiology made aware and recommended to continue trending trops. Per cards note [facility] planning for next week Plan - transfer to ICU - 20 lasix IV - place on CPAP Dr. Donnelly was made aware of plan Noah Blanchard MD * Nursing Notes - Danae Hernandez RN - 11/18/2023 3:37 PM EDT 0810: pt removed from CPAP and transitioned to 6L high flow NC without difficulty. MD notified of pt intermittent confusion and disorientation to place, time and situation. MD assessed pt at bedside. IS encouraged and performed by pt. 1315: 7L high flow NC to maintain oxygen 92% or greater per order, MD notified. 1505: requires 8L high flow NC. 1523: pt requires 9L high flow NC, MD notified. 20mg IV lasix given. Appropriate positioning supported, pulmonary hygiene and IS promoted. 1700: MD to bedside to assess pt. Pt maintaining above 92% o2 on 9L high flow NC. 1856: critical result from lab, troponin 3685. Joan MONTE and [place] MONTE notified. Response received, cardiology to be paged by MD. EKG obtained. VBG obtained. * Plan of Care - Danae Hernandez RN - 11/18/2023 12:48 PM EDT Problem: Adult Inpatient Plan of Care Goal: Plan of Care Review Outcome: Progressing Goal: Patient-Specific Goal (Individualized) Outcome: Progressing Goal: Absence of Hospital-Acquired Illness or Injury Outcome: Progressing Goal: Optimal Comfort and Wellbeing Outcome: Progressing Goal: Readiness for Transition of Care Outcome: Progressing Problem: Stroke, Ischemic (Includes Transient Ischemic Attack) Goal: Optimal Coping Outcome: Progressing Goal: Effective Bowel Elimination Outcome: Progressing Goal: Optimal Cerebral Tissue Perfusion Outcome: Progressing Goal: Optimal Cognitive Function Outcome: Progressing Goal: Improved Communication Skills Outcome: Progressing Goal: Optimal Functional Ability Outcome: Progressing Goal: Optimal Nutrition Intake Outcome: Progressing Goal: Effective Oxygenation and Ventilation Outcome: Progressing Goal: Improved Sensorimotor Function Outcome: Progressing Goal: Safe and Effective Swallow Outcome: Progressing Goal: Effective Urinary Elimination Outcome: Progressing Problem: Swallowing Impairment Goal: Optimal Eating/Swallowing without Aspiration Outcome: Progressing * Plan of Care - Waqar Yao MD - 11/18/2023 2:15 AM EDT Peripheral Vascular Surgery Cross-Cover Note Called to bedside due to patient reported headache radiating to the back. On arrival patient is resting comfortably in bed and endorsed improvement in his headache symptoms without resolution. He notes that he has had headaches like this in the past particularly over his neck. At this point he did not endorse any chest pain or shortness of breath. Given improvement in symptoms without intervention, lack of alarm symptoms, and patient reporting similar symptoms at baseline, discussed with patient and bedside team to continue to monitor. Recalled to bedside due to pain in chest, increased shortness of breath and oxygen requirement, and*. On arrival, patient appeared in mild distress see an edge of the bed taking more shallow breathsthan earlier in the night. This point he denied any alejandro pain but when on further questioning did note some left- sided chest achiness. He denies radiation to this pain but he does note that it is positional. The pain is not reproduced on palpation of the left chest. Bedside team obtained ECG whichwas notable for ST wave depression. Given symptomatology and ECG findings, VBG, CXR, and troponin were ordered and cardiology contacted who immediately evaluated the patient. They recommend initiation of a heparin drip. While anticoagulation was held earlier this admission due to concerns for possible hemorrhagic conversion, neurovascular medicine had recommended initiation of systemic anticoagulation in their most recent progress note. Plan was discussed with bedside team were in agreement appreciate their assistance care for Mr. Vega. Chest x-ray does show some increased haziness potentially secondary to cardiac etiology versus infectious etiology as patient's white count has trended slightly. We will continue to support patient with supplemental oxygen. Lower concern for pulmonary embolism at this point given patient's lack of tachycardia and evidence of alternative etiologies for patient's symptoms. Treatment for PE would beheparin drip which we are starting for ACS. Waqar Yao MD General Surgeyr * Plan of Care - Nito Ordoñez OT - 11/17/2023 10:35 AM EDT Problem: OT - Transfers Goal: Transfers Toilet/ Bedside Commode - Patient will transfer to/from toilet with modified independence for improved ability to safely complete ADLs. Outcome: Progressing Problem: OT - Balance Goal: Balance - Standing - Patient will perform 7 minutes of functional task in standing with modified independence and good balance to promote safety and improved balance required for self-care activities. Outcome: Progressing Problem: OT - Vision Goal: Visual Scanning Functional Mobility - Patient will use appropriate visual scanning techniqueswith no cues during functional mobility to promote safety and success during daily routine without hitting items on his right. Outcome: Progressing * Plan of Care - Yousif Mera PT - 11/17/2023 9:29 AM EDT Problem: PT - General Goals Goal: Supine <-> Sit Transfers - Patient will perform supine to/from sit transfers with standby assistance and without use of hospital bed features in order to improve functional mobility and safety. Outcome: Ongoing Goal: Sit <-> Stand Transfers - Patient will perform sit to/from stand transfers with standbyassistance and wheeled walker in order to improve functional mobility and safety. Outcome: Ongoing Goal: Ambulation - Patient will ambulate 150 feet with standby assistance and wheeled walker to improve ability to safely navigate home and community. Outcome: Ongoing Problem: PT - Outcome Measure Goals Goal: [facility] - Patient will demonstrate an improvement in AM-PAC Inpatient Mobility Short Form of atleast 4.5 points (MDC), in order to demonstrate an improvement in functional mobility. Outcome: Ongoing * Plan of Care - Waqar Yao MD - 11/17/2023 6:15 AM EDT Peripheral Vascular Surgery Plan of Care Called to the bedside around 7:30 p.m. to evaluate patient neck due to concerns for increasing hematoma. The area of swelling seems to be within the outlined area but per bedside staff it was larger.Tender to the touch but without any underlying thrill. Is no obvious fluctuance and the patient wasbreathing well on room air and not have any trouble swallowing. He would intermittently iced over top. That time plan was to continue to monitor. Returned to bedside around 2:00 a.m. that point the swelling of the neck has improved significantly and patient was resting comfortably. Patient had accidentally removed arterial line and bedside staff had put a pressure dressing over top. Patient's blood pressures have been well controlled. Discussed with team, we will not plan on replacing a line. Continuing monitor neck swelling, which seems to be resolving. Okay for clear liquid diet. Waqar Yao MD General Surgery * Nursing Notes - Danae Hernandez RN - 11/16/2023 4:07 PM EDT 1607: copy of text page to MD Joce Jimenez collection correspondent for [facility], [facility], [place]. pt arrive to [facility]. * Op Note - Boom Ford MD - 11/16/2023 3:37 PM EDT Operative Note Patient Surgical Date: 11/16/2023 OR Pre-Operative Diagnosis: Symptomatic Carotid stenosis Post-Operative Diagnosis: Symptomatic Carotid stenosis Performed: Transcarotid artery revascularization (TCAR), Enroute 10 mm x 40 mm stent. Laterality: Right Surgical Service: Vascular Surgery Surgeons and Role: * Boom Ford MD - Primary * Iris Donnelly MD - Fellow Anesthesia: Local Estimated Blood Loss: 20 mL Complications: none Findings: s/p TCAR. No issues during the case. Normal neuro exam throughout the case. Indication for Procedure: 68 year old male with prior right CEA presenting with recurrent TIAs withweakness of left arm and left sided facial droop. CTA and duplex showing recurrent severe stenosis of right carotid artery. Decision was made to proceed with TCAR. All risk and benefits of procedure was discussed with the patient Description of the Operation: The patient was brought to the operating room, where support lines were placed and general anesthesia was secured. The right neck and bilateral groins were prepped and the patient was sterilely draped. A transverse 2-4 cm incision was made between the sternal and clavicular heads of the sternocleidomastoid muscle, below the omohyoid. Following longitudinal division of the carotid sheath the jugular vein was partially dissected and retracted medially. Once 3 cm of common carotid artery (CCA) were isolated, a silastic hollow vessel loop was placed around the proximal 1/3 of the CCA under directvision. A 5.0 polypropylene suture was pre-placed in the anterior wall of the CCA, in a pursestring configuration, close to the clavicle to facilitate hemostasis upon removal of the arterial sheathat completion of the TCAR procedure. The contralateral left common femoral vein (CFV) was accessed under ultrasound guidance, using standard Seldinger and micropuncture access technique. The Venous Return Sheath was advanced into the CFV over the 0.035 wire provided. Blood was aspirated from the flow line followed by flushing of the Venous Sheath with heparinized saline. The Venous Sheath was secured to the patient s skin with suture to maintain optimal position in the vessel. Heparin was given to obtain a therapeutic activated clotting time >250 seconds prior to arterialaccess. A 4-Tristanian micropuncture set was used, puncturing the artery with the 21G needle through the pre-placed pursestring stitch while holding gentle traction on the silastic hollow vessel loop to stabilize and centralize the CCA within the incision. Careful attention was paid to the change in CCA shape when using the umbilical tape to control or lift the artery. The micropuncture wire was thenadvanced 3-4 cm into the CCA and, the 21G needle was removed. The micropuncture sheath was advanced2-3 cm into the CCA and the wire and dilator were removed. Pulsatile backflow indicated correct positioning. Angiogram was performed in two views to confirm the lesion location and patency of the external carotid artery. The micropuncture dilator and wire were replaced and used to select the external carotid artery, and then the micropuncture catheter was advanced into the external carotid artery. The Dilator and wire were removed and then the 0.035 stiff J-wire was placed through the micropunc ture catheter into the external carotid artery. The provided 0.035 J-tipped guidewire was insertedas close as possible to the bifurcation without engaging the lesion. After micropuncture removal, the arteriotomy was dilated with a 6Fr dilator and then the Transcarotid Arterial Sheath was advancedto the 2.5cm marker and the 0.035 wire and dilator were then removed. Arterial Sheath position was assessed under fluoroscopy in two projections to ensure that the sheath tip was oriented coaxially in the CCA. The Arterial Sheath was sutured to the patient with gentle forward tension. Blood was slowly aspirated followed by flushing with heparinized saline. No ingress of air bubbles through the passive hemostatic valve was observed. The stopcocks were closed. Traction applied to the CCA previously to facilitate access was gently released. The Flow Controller was connected to the Transcarotid Arterial Sheath, prepared by passively allowing a column of arterial blood to fill the line and connected to the Venous Return Sheath. CCA inflowwas occluded proximal to the arteriotomy with the vessel loop to achieve active flow reversal. To confirm flow reversal, a saline bolus was delivered into the venous flow line. Angiograms were perform ed with slow injections of a small amount of contrast filling just past the lesion to minimize antegrade transmission of micro-bubbles. Prior to lesion manipulation, heart rate and systolic BP were managed upwards to optimize flow reversal and procedural neuroprotection. The lesion was crossed with an 0.014 guidewire and predilated with a 6 mm x 30 mm balloon. Next a 10 mm x 40 mm ENROUTE Transcarotid stent, sized appropriately to the right CCA was positioned and deployed. Post dilation was not required. Angiogram was performed after allowing a full 2 minutes of flow reversal after the stent deployment by gently injecting through the ENROUTE Sheath with flow reversal temporarily paused. Once satisfied that the lesion had beenappropriately treated, the vessel loop was released and an additional minute of flow through the sheath was allowed so any residual thrombus or debris in the space between the vessel loop and sheath tip would be flushed out. The stopcocks to the flow lines were turned off after returning the blood from the device to the venous sheath. The Transcarotid Arterial Sheath was removed and the pre-closure suture was tied. Heparin reversal was employed and the Venous Return Sheath was removed and hemostasis was achieved with manual compression. The neck incision was inspected for hemostasis and then closed in layers with 3-0Vicryl and 4-0 Monocryl sutures. The patient tolerated the procedure well and was extubated on the table. The patient was moving allfour extremities to command prior to transfer to the recovery room. * Plan of Care - Iris Donnelly MD - 11/16/2023 1:49 PM EDT S/p Right TCAR - NPO, advance diet at post op check - Neuro exam Q2h. At preop: left lip droop, left eyelid droop, left sluggish pupil. Strength otherwise equal in all 4 extremities. No new deficits noted post op - HOB 30 - SBP 100-140 - Continue asa and plavix * Brief Op Note - Iris Donnelly MD - 11/16/2023 1:48 PM EDT Yony Vega ([id number]) PRE OPERATIVE DIAGNOSIS Carotid stenosis [I65.29] POST OPERATIVE DIAGNOSIS Carotid stenosis [I65.29] PROCEDURE PERFORMED Procedure(s) (LRB): PLACEMENT INTRAVASCULAR STENT CERVICAL CAROTID ARTERY OPEN (Right) PRIMARY CLOSURE Yes INTRAOPERATIVE FINDINGS Right TCAR, 6x30 stent, Left femoral vein access. SURGEON Surgeons and Role: * Boom Ford MD - Primary * Iris Donnelly MD - Fellow ANESTHESIOLOGIST Anesthesiologist: Taryn Cardona MD; Patito Jackson MD Car Detailer: STEFFEN El SURGICAL STAFF Terrazzo Helper: Dania Corbin RN; Lee Og RN Call Center Team Leader: May Rudd; Etienne Brady Scrub Person: Wade Muse COMPLICATIONS None ESTIMATED BLOOD LOSS 20 ml SPECIMENS No specimen sent * No specimens in log * Iris Donnelly MD November 16, 2023 1:49 PM * Plan of Care - Zayra Virgen RN - 11/15/2023 12:23 PM EDT Images from the original note were not included. I visited with Yony Vega this morning as the Transitions of Care Nurse for the [facility] at the [facility]. Together we reviewed the signs and symptoms of a stroke and when to call 911. I provided a BEFAST magnet and an invitation to our patient and family education session held weekly on Wednesdays. I indicated that I would like to call post hospitalization to follow up with the patient and inquired whom best to contact (patient/family) as well as the best number to reach this person. I scheduled Yony Eduardo Vega for a follow-up visit with our neurology department, collaborating directly with the patient to ensure their availability and preferred location. I then left my card assuring the patient and/or family that they should feel free to contact me with any questions. JIM Christine, RN Transitions of Care Nurse [facility] [place] [place] [address] Office [email or web address] Plan of Care - Danae Vergara RN - 11/14/2023 10:53 PM EDT Problem: Adult Inpatient Plan of Care Goal: Plan of Care Review Outcome: Progressing Goal: Patient-Specific Goal (Individualized) Outcome: Progressing Goal: Absence of Hospital-Acquired Illness or Injury Outcome: Progressing Goal: Optimal Comfort and Wellbeing Outcome: Progressing Goal: Readiness for Transition of Care Outcome: Progressing Problem: OT - ADLs Goal: Bathing - Patient will perform full body bathing routine with modified independence while seated for improved ability to complete self-care activities Outcome: Progressing Problem: OT - Transfers Goal: Transfers Toilet/ Bedside Commode - Patient will transfer to/from toilet with modified independence for improved ability to safely complete ADLs. Outcome: Progressing Problem: OT - Balance Goal: Balance - Standing - Patient will perform 7 minutes of functional task in standing with modified independence and good balance to promote safety and improved balance required for self-care activities. Outcome: Progressing Problem: OT - Strength/ROM Goal: Strength/ROM ADL Participation - Patient will participate in UE exercise program with modified independence to prevent deconditioning while in hospital and to max UE ROM/Coordination/strength for ADLs. Outcome: Progressing Problem: OT - Vision Goal: Visual Scanning Functional Mobility - Patient will use appropriate visual scanning techniqueswith no cues during functional mobility to promote safety and success during daily routine without hitting items on his right. Outcome: Progressing Problem: OT - Other Goal: Energy Conservation Task Recall - Patient will independently recall 3 energy conservation principles to increase functional activity tolerance during ADLs, IADLs, and functional mobility tasks. Outcome: Progressing Problem: PT - General Goals Goal: Supine <-> Sit Transfers - Patient will perform supine to/from sit transfers with modified independence and without use of hospital bed features in order to improve functional mobility and safety. Outcome: Progressing Goal: Sitting Endurance/Balance - Patient will perform seated balance tasks for 15 minutes with supervision and unilateral UE support while maintaining an RPE of less than 2/10 to improve endurance and safety with seated tasks. Outcome: Progressing Goal: Sit <-> Stand Transfers - Patient will perform sit to/from stand transfers with supervision and wheeled walker in order to improve functional mobility and safety. Outcome: Progressing Goal: Standing Endurance/Balance - Patient will perform standing balance tasks for 10 min with supervision and wheeled walker while maintaining an RPE of less than 2/10 to improve endurance and safety with standing tasks. Outcome: Progressing Goal: Stand/Squat Pivot Transfers - Patient will perform stand pivot transfer to/from bed/chair/commode with supervision and wheeled walker in order to improve functional mobility and safety. Outcome: Progressing Goal: Ambulation - Patient will ambulate 300 feet with supervision and wheeled walker to improve ability to safely navigate home and community. Outcome: Progressing Goal: Stairs - Patient will ascend/descend 2 stairs with contact guard assistance, without an assistive device, and single railing(s) to improve ability to safely navigate home and community. Outcome: Progressing Problem: Stroke, Ischemic (Includes Transient Ischemic Attack) Goal: Optimal Coping Outcome: Progressing Goal: Effective Bowel Elimination Outcome: Progressing Goal: Optimal Cerebral Tissue Perfusion Outcome: Progressing Goal: Optimal Cognitive Function Outcome: Progressing Goal: Improved Communication Skills Outcome: Progressing Goal: Optimal Functional Ability Outcome: Progressing Goal: Optimal Nutrition Intake Outcome: Progressing Goal: Effective Oxygenation and Ventilation Outcome: Progressing Goal: Improved Sensorimotor Function Outcome: Progressing Goal: Safe and Effective Swallow Outcome: Progressing Goal: Effective Urinary Elimination Outcome: Progressing Problem: Swallowing Impairment Goal: Optimal Eating/Swallowing without Aspiration Outcome: Progressing * Plan of Care - Ponce Alexis RN - 11/14/2023 6:54 PM EDT Problem: Adult Inpatient Plan of Care Goal: Plan of Care Review Outcome: Progressing Goal: Patient-Specific Goal (Individualized) Outcome: Progressing Goal: Absence of Hospital-Acquired Illness or Injury Outcome: Progressing Goal: Optimal Comfort and Wellbeing Outcome: Progressing Goal: Readiness for Transition of Care Outcome: Progressing * Plan of Care - Kristan Ernst MD - 11/14/2023 4:00 PM EDT Mr. Vega is a 68 yo M with PMH of R CEA who presented with concerns of symptomatic right carotidstenosis. In light of previous surgery, we will move forward with R TCAR . Patient has beenconsented for this procedure. In coordination with Cardiology, Neurovasc and Vascular, we have agreed to move forward with dual antiplatelet therapy (ASA 81 mg and Plavix 75mg ) in anticipation for carotid stent placement. Plan to restart DOAC after stent placement. Kristan Ernst MD Vascular Surgery PGY-3 [phone] * Plan of Care - Diamond Duvall PT - 11/14/2023 2:17 PM EDT Problem: PT - General Goals Goal: Supine <-> Sit Transfers - Patient will perform supine to/from sit transfers with modified independence and without use of hospital bed features in order to improve functional mobility and safety. Outcome: Progressing Goal: Sit <-> Stand Transfers - Patient will perform sit to/from stand transfers with supervision and wheeled walker in order to improve functional mobility and safety. Outcome: Progressing Goal: Standing Endurance/Balance - Patient will perform standing balance tasks for 10 min with supervision and wheeled walker while maintaining an RPE of less than 2/10 to improve endurance and safety with standing tasks. Outcome: Progressing * Plan of Care - Jaleel Leo MD - 11/14/2023 9:05 AM EDT CTA from 06APR reviewed. Given surgical history and CTA from 06APR he's a better transcarotid stentplacement candidate. We'll try to schedule him for surgery tomorrow, but may need to be pending angio room capability. Farhan Leo MD Vascular Surgery Fellow * Plan of Care - Danae Vergara RN - 11/13/2023 11:17 PM EDT Problem: Adult Inpatient Plan of Care Goal: Plan of Care Review Outcome: Progressing Goal: Patient-Specific Goal (Individualized) Outcome: Progressing Goal: Absence of Hospital-Acquired Illness or Injury Outcome: Progressing Goal: Optimal Comfort and Wellbeing Outcome: Progressing Goal: Readiness for Transition of Care Outcome: Progressing Problem: OT - ADLs Goal: Bathing - Patient will perform full body bathing routine with modified independence while seated for improved ability to complete self-care activities Outcome: Progressing Problem: OT - Transfers Goal: Transfers Toilet/ Bedside Commode - Patient will transfer to/from toilet with modified independence for improved ability to safely complete ADLs. Outcome: Progressing Problem: OT - Balance Goal: Balance - Standing - Patient will perform 7 minutes of functional task in standing with modified independence and good balance to promote safety and improved balance required for self-care activities. Outcome: Progressing Problem: OT - Strength/ROM Goal: Strength/ROM ADL Participation - Patient will participate in UE exercise program with modified independence to prevent deconditioning while in hospital and to max UE ROM/Coordination/strength for ADLs. Outcome: Progressing Problem: OT - Vision Goal: Visual Scanning Functional Mobility - Patient will use appropriate visual scanning techniqueswith no cues during functional mobility to promote safety and success during daily routine without hitting items on his right. Outcome: Progressing Problem: OT - Other Goal: Energy Conservation Task Recall - Patient will independently recall 3 energy conservation principles to increase functional activity tolerance during ADLs, IADLs, and functional mobility tasks. Outcome: Progressing Problem: PT - General Goals Goal: Supine <-> Sit Transfers - Patient will perform supine to/from sit transfers with modified independence and without use of hospital bed features in order to improve functional mobility and safety. Outcome: Progressing Goal: Sitting Endurance/Balance - Patient will perform seated balance tasks for 15 minutes with supervision and unilateral UE support while maintaining an RPE of less than 2/10 to improve endurance and safety with seated tasks. Outcome: Progressing Goal: Sit <-> Stand Transfers - Patient will perform sit to/from stand transfers with supervision and wheeled walker in order to improve functional mobility and safety. Outcome: Progressing Goal: Standing Endurance/Balance - Patient will perform standing balance tasks for 10 min with supervision and wheeled walker while maintaining an RPE of less than 2/10 to improve endurance and safety with standing tasks. Outcome: Progressing Goal: Stand/Squat Pivot Transfers - Patient will perform stand pivot transfer to/from bed/chair/commode with supervision and wheeled walker in order to improve functional mobility and safety. Outcome: Progressing Goal: Ambulation - Patient will ambulate 300 feet with supervision and wheeled walker to improve ability to safely navigate home and community. Outcome: Progressing Goal: Stairs - Patient will ascend/descend 2 stairs with contact guard assistance, without an assistive device, and single railing(s) to improve ability to safely navigate home and community. Outcome: Progressing Problem: Stroke, Ischemic (Includes Transient Ischemic Attack) Goal: Optimal Coping Outcome: Progressing Goal: Effective Bowel Elimination Outcome: Progressing Goal: Optimal Cerebral Tissue Perfusion Outcome: Progressing Goal: Optimal Cognitive Function Outcome: Progressing Goal: Improved Communication Skills Outcome: Progressing Goal: Optimal Functional Ability Outcome: Progressing Goal: Optimal Nutrition Intake Outcome: Progressing Goal: Effective Oxygenation and Ventilation Outcome: Progressing Goal: Improved Sensorimotor Function Outcome: Progressing Goal: Safe and Effective Swallow Outcome: Progressing Goal: Effective Urinary Elimination Outcome: Progressing Problem: Swallowing Impairment Goal: Optimal Eating/Swallowing without Aspiration Outcome: Progressing * Nursing Notes - Willa Hahn RN - 11/13/2023 5:44 PM EDT Lab called to inform nurse there wasn't enough blood in the ptt tube. * Plan of Care - Blanca Jimenez MD - 11/13/2023 11:51 AM EDT Vascular Surgery Plan of Care Yony Vega is a 68 y.o. male with PMH CAD sp 5v CABG in 2007 on DAPT (held since initial presentation yesterday), recurrent CVA (2008, 2011, 2014 w residual left sided numbness/weakness), DM2, SANTANA sp right CEA (~2011, for similar CVA symptoms) and PAD sp multiple BLLE angioplasties (2014, 2016for rest pain) who pw left-sided facial droop, worsening numbness, and dysarthria. MRI brain demonstrating punctate acute to subacute infarcts in the right frontal lobe and right occipital lobe, remote infarct in the medial right cerebellum, and multiple remote lacunar infarcts. Carotid duplex w 70-99% right ICA stenosis, 1-49% left ICA stenosis. OSH CTA brain demonstrated <50% stenosis of bilateral carotid arteries. Patient w palpable BL femorals, doppler DP/PT signals Plan: - Recommend continuation of asa and plavix - Tentative plan for right CEA 11/14 pending completion of cardiac risk stratification based on cardiology recommendations (pharmacologic, stress test, TTE) Discussed with Dr. Ford on AM rounds. Blanca Jimenez MD General Surgery PGY1 Pager [phone] * Nursing Notes - Julianna Mehta RN - 11/13/2023 2:30 AM EDT On admission to [facility], from ED a dual RN initial assessment of skin condition was performed by Julianna Mehta RN and RASHI Cannon. Skin Assessment: Skin not within defined limits. - Wound(s) identified: Yes Sanket Score: 15 LDA Added:Yes Julianna Mehta RN * Plan of Care - Molly Michel MD - 11/12/2023 5:15 PM EDT Surgery Chief Resident Plan of Care 68M w PMH CAD sp 5v CABG in 2007 on DAPT (held since initial presentation yesterday), recurrent CVA(2008, 2011, 2015 w residual left sided numbness/weakness), DM2, SANTANA sp right CEA (~2011, for similar CVA symptoms) and PAD sp multiple BLLE angioplasties (2014, 2016 for rest pain) who pw left-sided facial droop, worsening numbness, and dysarthria. Patient has since returned to baseline and Neurovascular consult has signed off w/ recommendation for MRI brain. Carotid duplex w 70-99% right ICA stenosis, 1-49% left ICA stenosis. OSH CTA brain demonstrated <50% stenosis of bilateral carotid arteries. Patient w palpable BL femorals, doppler DP/PT signals Plan: - will need surgery after 48h (anticipate Monday), approach TBD - continue ASA and Plavix - recommend cardiology consult given history, as will need optimisation Please see full Consult Note for details. Patient was discussed with Vascular Surgery attending, Dr Ford. Molly Michel MD PhD General Surgery * Plan of Care - Steffany Cruz OT - 11/12/2023 2:52 PM EDT Problem: OT - ADLs Goal: Bathing - Patient will perform full body bathing routine with modified independence while seated for improved ability to complete self-care activities Outcome: Ongoing Problem: OT - Transfers Goal: Transfers Toilet/ Bedside Commode - Patient will transfer to/from toilet with modified independence for improved ability to safely complete ADLs. Outcome: Ongoing Problem: OT - Balance Goal: Balance - Standing - Patient will perform 7 minutes of functional task in standing with modified independence and good balance to promote safety and improved balance required for self-care activities. Outcome: Ongoing Problem: OT - Strength/ROM Goal: Strength/ROM ADL Participation - Patient will participate in UE exercise program with modified independence to prevent deconditioning while in hospital and to max UE ROM/Coordination/strength for ADLs. Outcome: Ongoing Problem: OT - Vision Goal: Visual Scanning Functional Mobility - Patient will use appropriate visual scanning techniqueswith no cues during functional mobility to promote safety and success during daily routine without hitting items on his right. Outcome: Ongoing Problem: OT - Other Goal: Energy Conservation Task Recall - Patient will independently recall 3 energy conservation principles to increase functional activity tolerance during ADLs, IADLs, and functional mobility tasks. Outcome: Ongoing * Treatment Plan - Fartun Mckinley, CREDIT CONSULTANT-CLOUD DEVELOPER - 11/12/2023 1:40 PM EDT Neurovascular update: Please see the consult note by Dr. Chin for a detailed note. Patient was seen and examined with stroke attending Dr. Gaffney. Yony Vega is a 68 y.o. male with PMH significant for HTN, mood disorder, iron deficiency, DM,GERD, stroke, right-sided carotid endarterectomy (2008), CAD/CABG (2007, Stent placed in 2014, Bypass in 2007), strokes (2008, 2011 with residual L side decrease sensation), colorectal cancer (s/p chemo, 2 years ago in remission since Last May 2023) who presented with transient increased left sidednumbness (lasted 10 minutes), Headache. He complains of 2 weeks of worsening weakness and dizziness(room spinning) and hallucinations. CTH OSH: No acute findings Vasc Duplex Carotid BL: R ICA stenosis (70-99%) L ICA stenosis (1-49%) LDL 109, A1c 7.8 Recommendations: -MRI is pending. Suspect presentation likely secondary to TIA. - Obtain MRI brain with and w/o contrast, if the MRI brain showed no stroke continue home DAPT. If MRI with acute stroke consult Neurosurgery and follow up in Neurovascular clinic 4-6 weeks after discharge. - Please call collection correspondent Neurovascular AIRLINE STATION AGENT or resident for further questions. -No further recommendations from a Neurovascular standpoint. Neurovascular will sign off. Thank youfor allowing us to participate in the care of Yony Vega, if you have any further questions please contact the neurovascular team. Provider NIH Stroke Scale NIH Interval (Provider): daily NIH Level of Conciousness (Provider): 0 NIH LOC Questions (Provider): 0 NIH LOC Commands (Provider): 0 NIH Best Gaze (Provider): 0 NIH Visual (Provider): 0 NIH Facial Palsy (Provider): 0 NIH Left Arm Motor (Provider): 0 NIH Right Arm Motor (Provider): 0 NIH Left Leg Motor (Provider): 0 NIH Right Leg Motor (Provider): 0 NIH Limb Ataxia (Provider): 0 NIH Sensory (Provider): 0 NIH Best Language (Provider): 0 NIH Dysarthria (Provider): 0 NIH Extinction and Inattention (Provider): 0 NIH Total Score (Provider): 0 This plan was discussed with stroke attending Dr. Gaffney and has been communicated to the team. EUSEBIO Blackmon 11/12/2023 1:56 PM * Plan of Care - Hilary Douglas, PT - 11/12/2023 1:16 PM EDT Problem: PT - General Goals Goal: Supine <-> Sit Transfers - Patient will perform supine to/from sit transfers with modified independence and without use of hospital bed features in order to improve functional mobility and safety. Outcome: Progressing Goal: Sitting Endurance/Balance - Patient will perform seated balance tasks for 15 minutes with supervision and unilateral UE support while maintaining an RPE of less than 2/10 to improve endurance and safety with seated tasks. Outcome: Progressing Goal: Sit <-> Stand Transfers - Patient will perform sit to/from stand transfers with supervision and wheeled walker in order to improve functional mobility and safety. Outcome: Progressing Goal: Standing Endurance/Balance - Patient will perform standing balance tasks for 10 min with supervision and wheeled walker while maintaining an RPE of less than 2/10 to improve endurance and safety with standing tasks. Outcome: Progressing Goal: Stand/Squat Pivot Transfers - Patient will perform stand pivot transfer to/from bed/chair/commode with supervision and wheeled walker in order to improve functional mobility and safety. Outcome: Progressing Goal: Ambulation - Patient will ambulate 300 feet with supervision and wheeled walker to improve ability to safely navigate home and community. Outcome: Progressing Goal: Stairs - Patient will ascend/descend 2 stairs with contact guard assistance, without an assistive device, and single railing(s) to improve ability to safely navigate home and community. Outcome: Progressing * CDU Provider Note - EUSEBIO Hernandez - 11/12/2023 10:52 AM EDT DEPARTMENT OF EMERGENCY MEDICINE CHIEF COMPLAINT No chief complaint on file. HISTORY OF PRESENT ILLNESS Yony Vega is a 68 y.o. male was appropriately risk stratified for observation level of care and was placed on the EDOU TIA protocol. PMHx HTN, mood disorder, COREY, DM, GERD, CAD, stroke, R ICA stenosis s/p CEA. Presents with intermittent facial numbness around his mouth for 2 weeks lasting for approximately 10 minutes, episodes getting more frequent in the past 4 days. Also having hallucinations for the past 3 days and intermittent headaches. No fever, chills or urinary symptoms. No speechchanges. Has had some tingling in his feet and hands. No weakness. No CP or SOB. Had hallucinationsabout a year ago when he had a urosepsis. Initially evaluated at OSH, CTH neg, CTA b/n with concerns for carotid artery dissection, infectious workup negative. Transferred. Labs WNL except for elevated blood glucose, ESR 20. UA without concerns for infection. CXR WNL. Neurovascular consulted. Patient placed in the CDU for symptom control, MRI brain, carotid ultrasound and Neurovascular re-evaluation. Personal, surgical, family, and social history reviewed with patient. REVIEW OF SYSTEMS Review of Systems Constitutional: Negative for chills and fever. Eyes: Negative for blurred vision and double vision. Respiratory: Negative for cough and shortness of breath. Cardiovascular: Negative for chest pain. Genitourinary: Negative for dysuria, flank pain, frequency and urgency. Neurological: Positive for tingling (facial) and headaches. Negative for dizziness. Psychiatric/Behavioral: Positive for hallucinations. All other systems reviewed and are negative. All Other Systems Were Reviewed And Negative Unless Otherwise Noted PAST MEDICAL HISTORY Past Medical History Reviewed, Contributory Findings Include: See below and above in HPI, no other endorsed PMH per patient. Past Medical History: Diagnosis Date Anxiety Arteriosclerosis of carotid artery CAD (coronary artery disease) Colostomy in place CVA (cerebral vascular accident) 2011 Diabetes mellitus GERD (gastroesophageal reflux disease) HLD (hyperlipidemia) HTN (hypertension) NSTEMI (non-ST elevated myocardial infarction) ALEJANDRO (obstructive sleep apnea) Osteoporosis Parastomal hernia Rectal cancer SURGICAL HISTORY Past Surgical History Reviewed, Contributory Findings Include: No other endorsed surgical history per patient. Past Surgical History: Procedure Laterality Date EYE SURGERY 2021 CORONARY STENT PLACEMENT 2015 HEART CATHETERIZATION 2015 CORONARY ARTERY BYPASS GRAFT 2009 ENDARTERECTOMY CAROTID SUBCLAVIAN VERTEBRAL 2009 HERNIA REPAIR Left 2005 inguinal OTHER SURGICAL 2005 graft- burn right hand HERNIA REPAIR 1998 umbilical OTHER SURGICAL 1992 fx right arm TONSILLECTOMY 1985 COLONOSCOPY DIAGNOSTIC LARGE BOWEL SURGERY MEDICATIONS GIVEN IN THE ED Medications aspirin chewable tablet 81 mg (81 mg Oral Given 11/12/23804) Clopidogrel (PLAVIX) tablet 75 mg (75 mg Oral Given 11/12/23804) Acetaminophen (TYLENOL) tablet 650 mg (has no administration in time range) Ondansetron 4mg/2ml (ZOFRAN) injection 4 mg (has no administration in time range) Or Ondansetron (ZOFRAN) tablet 4 mg (has no administration in time range) alum/mag hydrox.-simethicone oral suspension 30 mL (has no administration in time range) ALLERGIES No Known Allergies No known or endorsed food or drug allergies per patient. FAMILY HISTORY Family History Reviewed, Contributory Findings Include: No other endorsed family history per patient. No family history on file. SOCIAL HISTORY Social History Reviewed, Contributory Findings Include: No other endorsed social history per patient. Social History Socioeconomic History Marital status: Spouse name: Not on file Number of children: Not on file Years of education: Not on file Highest education level: Not on file Occupational History Not on file Tobacco Use Smoking status: Never Smokeless tobacco: Never Vaping Use Vaping status: Never Used Substance and Sexual Activity Alcohol use: Not Currently Comment: Wine rarely Drug use: Never Sexual activity: Not on file Other Topics Concern Not on file Social History Narrative Not on file Social Determinants of Health Financial Resource Strain: Low Risk (05/27/2020) Received from [facility] Overall Financial Resource Strain (CARDIA) Difficulty of Paying Living Expenses: Not hard at all Food Insecurity: No Food Insecurity (05/27/2020) Received from [facility] Hunger Vital Sign Worried About Running Out of Food in the Last Year: Never true Ran Out of Food in the Last Year: Never true Transportation Needs: No Transportation Needs (05/27/2020) Received from [facility] PRAPARE - Transportation Lack of Transportation (Medical): No Lack of Transportation (Non-Medical): No Physical Activity: Not on file Stress: Not on file Social Connections: Not on file Intimate Partner Violence: Not on file Housing Stability: Not on file PHYSICAL EXAM BP 171/81 Pulse 81 Temp 97.8 F (36.6 C) Resp 16 Wt 67.1 kg (148 lb) SpO2 92% BMI 23.18 kg/m Smoking Status Never Physical Exam Vitals and nursing note reviewed. Constitutional: General: He is not in acute distress. Appearance: He is well-developed. He is not diaphoretic. HENT: Head: Normocephalic and atraumatic. Eyes: General: No scleral icterus. Right eye: No discharge. Left eye: No discharge. Cardiovascular: Rate and Rhythm: Normal rate and regular rhythm. Heart sounds: Normal heart sounds. No murmur heard. No friction rub. No gallop. Pulmonary: Effort: Pulmonary effort is normal. No respiratory distress. Breath sounds: Normal breath sounds. No wheezing or rales. Skin: General: Skin is warm and dry. Findings: No rash. Neurological: Mental Status: He is alert and oriented to person, place, and time. Cranial Nerves: Cranial nerves 2-12 are intact. Sensory: Sensation is intact. Motor: Motor function is intact. Coordination: Coordination is intact. Coordination normal. Comments: Strength 5/5 in upper and lower extremities bilaterally. Sensation grossly intact. Proprioception intact. No pronator drift on exam. Psychiatric: Behavior: Behavior normal. EDOU COURSE & MEDICAL DECISION MAKING Risk stratification appropriate for observation level of care. Patient was placed in EDOU on the TIA protocol. Patient age greater than 64y/o? YES Geriatrics Screening: Delirium Triage Screen: 0 Exclusion Criteria: Non-zero scores are abnormal. The above score does not represent acute delirium based on my assessment. Stage Balance Assessment Score: Exclusion Criteria: Patient unable to stand due to treatment for medical condition Non-zero scores are abnormal. The patient does need urgent physical and occupational therapy consultation or referral for fall risk assessment based on the above score and my assessment. ISAR Score: 1 Exclusion Criteria: Before the illness or injury that brought you to the Emergency Department, did you need someone to help you on a regular basis?: No In the last 24 hours, have you needed more help than usual?: No Have you been hospitalized for one or more nights during the past 6 months?: No In general, do you have serious problems with your vision, that cannot be corrected by glasses?: No In general, do you have serious problems with your memory?: No Do you take six or more different medications every day?: Yes Scores of 2 or higher should prompt consideration of case management consultation. The patient doesnot need case management based on my assessment. The patient does not Geriatrics consultation or outpatient referral based on the above screening and my assessment. Differential diagnosis includes but is not limited to the following, at least one of which represents a life or limb threatening condition: TIA, stroke, dissection. I reviewed the patients' medical records and nursing notes and noted their allergies, past medical history, and previous visits. Results for orders placed or performed during the hospital encounter of 11/12/23 [facility] 7 - ED Result Value Ref Range Sodium 139 135 - 145 mmol/L Potassium 3.7 3.5 - 5.0 mmol/L Chloride 100 98 - 108 mmol/L CO2 30 21 - 31 mmol/L Glucose 96 70 - 99 mg/dL BUN 10 7 - 25 mg/dL Creatinine 0.77 0.70 - 1.30 mg/dL Bun/Crea Ratio 13 Osmolality (Calculated) 289 278 - 305 mOsm/kg Anion Gap 13 7 - 17 mmol/L eGFR, CKD-EPI, Male >90 >=60 mL/min/1.73m2 CBC AND ELECTRONIC DIFF Result Value Ref Range WBC Count 6.24 3.73 - 10.10 K/uL RBC Count 4.94 4.38 - 5.83 M/uL Hemoglobin 13.4 13.4 - 16.8 g/dL Hematocrit 41.6 39.6 - 48.8 % Mean Cell Volume 84.2 79.0 - 94.5 fL Mean Cell Hgb 27.1 26.1 - 33.3 pg Mean Cell Hgb Conc 32.2 31.9 - 36.5 g/dL RBC Distribution 14.7 (H) 10.9 - 14.3 % Platelet Count 265 146 - 337 K/uL Mean Platelet Volume 9.7 8.7 - 12.3 fL DIFF STATUS Electronic Differential Segs + Bands Auto 66.5 % Immature Grans % 0.2 % Lymphocyte % Auto 20.7 % Monocyte % Auto 11.2 % Eosinophil % Auto 1.1 % Basophil % Auto 0.3 % Nucleated RBC 0.0 <=0.2 /100 WBC Segs + Bands,Absolute Auto 4.15 1.57 - 6.19 K/uL Immature Grans Absolute <0.04 <=0.07 K/uL Abs Lymph Auto 1.29 0.83 - 3.57 K/uL Abs Ford Auto 0.70 0.24 - 0.93 K/uL Abs Eos Auto 0.07 0.00 - 0.48 K/uL Abs Baso Auto <0.04 0.00 - 0.09 K/uL LIPID PANEL W CALCULATED LDL Result Value Ref Range Cholesterol 180 <200 mg/dL Triglycerides 188 (H) <150 mg/dL HDL Cholesterol 33 (L) >=40 mg/dL Calculated LDL Cholesterol 109 (H) 0 - 99 mg/dL Total Cholesterol/HDL Ratio 5.5 (H) <4.5 Non HDL Cholesterol 147 (H) <130 mg/dL HEPATIC FUNCTION PANEL Result Value Ref Range Albumin 4.0 3.5 - 5.0 g/dL Bilirubin Direct 0.1 <0.3 mg/dL Bilirubin Total 0.5 <1.5 mg/dL ALP 94 32 - 126 U/L ALT 17 10 - 52 U/L AST 28 10 - 39 U/L Total Protein 7.1 6.4 - 8.3 g/dL HEMOGLOBIN A1C Result Value Ref Range Hemoglobin A1C HPLC 7.8 (H) 4.7 - 5.6 % Estimated Average Glucose 177 mg/dL C REACTIVE PROTEIN Result Value Ref Range C Reactive Protein 6.55 <10.00 mg/L C REACTIVE PROTEIN Result Value Ref Range C Reactive Protein 7.90 <10.00 mg/L SEDIMENTATION RATE, AUTOMATED Result Value Ref Range ESR Westergren 20 (H) <20 mm/hr GLUCOSE POC Result Value Ref Range Glucose (POC Device) 117 (H) 70 - 99 mg/dL POC Sample Type CAPBL GLUCOSE POC Result Value Ref Range Glucose (POC Device) 281 (H) 70 - 99 mg/dL POC Sample Type CAPBL GLUCOSE POC Result Value Ref Range Glucose (POC Device) 211 (H) 70 - 99 mg/dL POC Sample Type CAPBL URINALYSIS REFLEX TO CULTURE PERFORMABLE Result Value Ref Range Color Yellow Yellow Appearance Urine Clear Clear Glucose Urine >=1000 mg/dL (A) Negative Ketones Urine 15 mg/dL = Small (A) Negative Specific [place] Urine 1.027 1.001 - 1.035 Blood Urine Negative Negative pH Urine 6.0 5.0 - 7.0 Protein Urine Trace (A) Negative Urobilinogen Urine 0.2 E.U./dL 0.2 E.U/dL, 1.0 E.U/dL Nitrites Urine Negative Negative Leukocyte Esterase Negative Negative RBC Urine 0-2 0 - 2 /HPF WBC Urine 0 - 5 0 - 5 /HPF Squamous/Epithelial Cells 0-2/hpf 0-2/hpf, 3-5/hpf = 1+ Bacteria ABSENT ABSENT While in the [facility] we will continue to check, monitor and reassess patient and alter our plan as clinically appropriate. I have discussed this plan of care with Dr. Thomson, the [facility] attending physician, who is in agreement with this plan. This is shared visit on 11/12/2023. Medical Decision Making Amount and/or Complexity of Data Reviewed Labs: ordered. Radiology: ordered. ECG/medicine tests: ordered. Risk OTC drugs. Prescription drug management. Decision regarding hospitalization. Electronically signed by: EUSEBIO Hernandez, 11/12/2023 10:52 AM [facility] Consult note* Michael Harris MD - 11/19/2023 11:33 AM EDTAssociated Order(s): IP CONSULT TO ENDOCRINOLOGY - DIABETES Images from the original note were not included. [facility] Inpatient Diabetes Consult - Team 2 *For provider collection correspondent, please use [facility]-> [place]-> Internal Medicine-> Endocrinology & Metabolism-> Team 2 Impression: Uncontrolled Type 2 Diabetes Mellitus (T2DM) admitted with Right carotid stenosis, Punctuate R frontal and R occipital stroke s/p TCAR on 11/16/2023 DM microvascular complications: retinopathy and peripheral neuropathy A1c on admission: 7.8% He had been on glargine 40 BID but in the setting of being NPO this has been held Diabetes Inpatient Plan: based on current glucose trends and current nutritional status would recommend the following Basal: Insulin NPH: 6 units twice daily Prandial: Insulin lispro: None Correction: Insulin Regular: 2 unit(s) per every 50 mg/dL above 150 mg/dL q6 hours Diabetes Education: reviewed above treatment plan recommendations Diabetes Health Maintenance BP goal is < 140/90 Review vaccination history. Diabetes Discharge Planning: Follow up needed: (note if an internal consult is requested then please include this specific wording in the consult request) TBD Thank you for allowing us to participate in your patients care. If you have questions please use [facility]->[facility]-> Internal Medicine-> Endocrinology & Metabolism-> Team 2 to identify collection correspondent pager. We will follow glucose trends with you and make recommendations as indicated. No chief complaint on file. CC: uncontrolled hyperglycemia Date of admission: 11/12/2023 Admission diagnosis: Stroke [I63.9] Acute ischemic stroke [I63.9] More than 50 percent stenosis of right internal carotid artery [I65.21] History of Present Illness: Yony Vega is a 68 y.o. year old male with Type 2 Diabetes Mellitus (T2DM) diagnosed in 2018 who is seen in consultation at the request of Boom Ford MD for assistance with evaluation of hyperglycemia and to make treatment recommendations. He was interviewed at his bedside in [place]. Per review of his chart and discussion with patient he has a significant history of type 2 diabetes, CAD s/p CABG in 2007 (OSH) and stent in 2014, previous CVA c/g L-sided numbness 2/2 RCIA internal carotid artery s/p CEA ~2011, colorectal cancer s/p APR w/ LPLND (2019), and reported PAD s/p R pop,R anterior tibial angioplasties (2014) and L anterior tibial, L peroneal, and L popliteal angioplasties (2015) who presents to [facility] with L facial numbness, word slurring, and balance issues. Stroke code was called, and patient underwent carotid ultrasound showing 70-99% stenosis R JUSTUS. He was admitted with Right carotid stenosis, Punctuate R frontal and R occipital stroke and is s/p TCAR on 11/16/19 24 In regard to his history of diabetes he is taking basal bolus insulin with dosing as below. He injects in his abdomen. He notes hard spots at his injection sites at times (they last for less than 24 hours). He uses a glucose meter to monitor his blood sugar. Current insulin orders: Correction: 1 unit per 100 mg/dl above 150 mg/dl Insulin dosing over the last 24 hours: Lispro: 4 units Current Diet Orders Procedures DIET NPO WITHOUT meds Standing Status: Standing Number of Occurrences: 1 Order Specific Question: NPO Meds: Answer: WITHOUT meds Glucose Review: Diabetes History Lab Results Component Value Date HGBA1C 7.8 (H) 11/13/2023 Diagnosis (aprox date): 2019 Outpatient Clinic: PCP Home regimen: Basal: Glargine 50 units twice daily Prandial: Lispro per a corrective scale Diabetes Complications: retinopathy and peripheral neuropathy Date of most recent dilated eye exam: was due for an appointment this admission Tobacco/Nicotine: He reports that he has never smoked. He has never used smokeless tobacco. Home blood glucoses: glucose meter: He is checking his blood sugars about 3-4 times per day Reports ranging from the 100s to 200 range typically Immunization History Administered Date(s) Administered 9870-2110 COVID-19 monovalent vaccine, mRNA, Pfizer, 0.3 ML 07/27/2021, 08/18/2021 Social History Tobacco Use Smoking Status Never Smokeless Tobacco Never Social History Substance and Sexual Activity Alcohol Use Not Currently Comment: Wine rarely Past Medical History: Diagnosis Date Anxiety Arteriosclerosis [...] OTHER SURGICAL 1992 fx right arm TONSILLECTOMY 1984 COLONOSCOPY DIAGNOSTIC LARGE BOWEL SURGERY No family history on file. HOSPITAL MEDS: Acetaminophen 650 mg Oral 4x daily Or Acetaminophen 650 mg Per NG tube 4x daily amLODIPine 5 mg Oral Daily aspirin 81 mg Oral Daily balsam-castor oil 1 Application Topical Q8H carveDILOL 12.5 mg Oral Q12H Clopidogrel 75 mg Oral Daily DULoxetine 60 mg Oral QHS Gabapentin 300 mg Oral QHS [Held by provider] insulin glargine 40 Units Subcutaneous Q12H Insulin lispro Subcutaneous TID AC Pantoprazole 40 mg Oral Daily Polyethylene glycol 17 g Oral Daily Rosuvastatin 40 mg Oral Daily ALLERGIES: has No Known Allergies. INFUSIONS: heparin 12 Units/kg/hr (11/19/23 1000) The past family, medical, and social history were otherwise reviewed and documented in the electronic record system. ROS: Pertinent items are noted in the HPI. Constitutional: Pt denies confusion Eyes: Negative for double vision Cardiovascular: Negative for palpitations Respiratory: Negative for SOB Gastrointestinal: Negative for nausea Physical Exam General/Constitutional: male, who looks his stated age of 68 y.o.. No acute distress. Vital Signs: BP 136/63 (BP Location: Right arm, BP Position: Lying) Pulse 76 Temp 98.2 F (36.8 C) (Oral) Resp 22 Ht 1.676 m (5' 6) Wt 66.8 kg (147 lb 4.3 oz) SpO2 95% BMI 23.77 kg/m Smoking StatusNever , Wt Readings from Last 3 Encounters: 11/19/23 66.8 kg (147 lb 4.3 oz) 08/29/23 67.4 kg (148 lb 11.2 oz) 07/19/23 67.1 kg (148 lb) Body mass index is 23.77 kg/m . O2 Sat (%): [85 %-99 %] 95 % O2 Device: high-flow nasal cannula Flow (L/min): [6-12] 12 Oxygen Concentration (%): [40-50] 40 Total Respiratory Rate: [18-24] 24 Total Respiratory Rate: [18-24] 24 Head: Normocephalic and atraumatic. Eyes: Sclerae and conjunctiva are clear. Neck: Supple Pulmonary/Chest: Normal respiratory effort. Musculoskeletal: Normal muscle mass and tone Neurological: Conscious, alert and oriented. Skin: Fingernails are intact Psychiatric: Appropriate mood and affect for their clinical situation. Procedure / Imaging / Lab Data: Pertinent procedure/imaging/lab data was reviewed: Lab Results Component Value Date HGBA1C 7.8 (H) 11/13/2023 Lab Results Component Value Date CHOLESTEROL 150 11/13/2023 TRIG 279 (H) 11/13/2023 HDL 29 (L) 11/13/2023 LDLCALC 65 11/13/2023 Lab Results Component Value Date SODIUM 133 (L) 11/19/2023 POTASSIUM 3.9 11/19/2023 CHLORIDE 95 (L) 11/19/2023 CO2 27 11/19/2023 BUN 22 11/19/2023 CREATSERUM 0.92 11/19/2023 GLUCOSE 250 (H) 11/19/2023 Lab Results Component Value Date SPGRVTYUR 1.027 11/12/2023 GLUCOSEURINE >=1000 mg/dL (A) 11/12/2023 KETONESURINE 15 mg/dL = Small (A) 11/12/2023 BLOODURINE Negative 11/12/2023 NITRITESURIN Negative 11/12/2023 LEUKOCESTUR Negative 11/12/2023 WBCURINE 0 - 5 11/12/2023 RBCURINE 0-2 11/12/2023 BACTERIAURIN ABSENT 11/12/2023 No results found for: TSH, TIK82SCT, CUI40DEK, TSHBASELINE, TSHULTRASEN, T3FREE, T7IEZLPGV, K4USOFV, M7DZBLEU, T4FREE, TPOAB No results found for: CREATURINE, MICROALBUMIN, MICALBCREAT Lab Results Component Value Date ALT 18 11/13/2023 No results found for: PREALBUMIN FIB-4 Calculation: 1.94 at 11/19/2023 12:52 AM Calculated from: SGOT/AST: 26 U/L at 11/13/2023 3:09 AM SGPT/ALT: 18 U/L at 11/13/2023 3:09 AM Platelets: 209 K/uL at 11/19/2023 12:52 AM Age: 68 years ECHO: Results for orders placed during the hospital encounter of 11/12/23 ECHOCARDIOGRAM LIMITED/FOLLOWUP 11/18/2023 (Final) Interpretation Summary Limited study. The left ventricular chamber size and systolic function are normal. LVEF 55-60%. Normal LV wall motion. Grade II diastolic dysfunction. The right ventricular chamber size and systolic function are normal. Estimated RVSP 44 mmHg. CATH: No results found for this or any previous visit from the past 3650 days. SARS-COV-2 Date Value Ref Range Status 11/18/2023 NOT DETECTED NOT DETECTED Final Comment: [facility] Negative results do not preclude SARS-CoV-2 infection and should not be used as the sole basis for treatment or other patient management decisions. Optimum specimen types and timing for peak viral levels during infections caused by SARS-CoV-2 has not been determined. The possibility of a false negative result should especially be considered if the patient's recent exposures or clinical presentation suggest that SARS-CoV-2 infection is probable, and diagnostic tests for other causes of illness (e.g., other respiratory illness) are negative. Collection of a new specimen and re-testing may be necessary if the patient is critically ill or clinically deteriorating. This test was performed using isothermal nucleic acid amplification technology for the qualitative detection of SARS-CoV-2 nucleic acid. No results found for: [id number] * Etienne Greenfield MD - 11/13/2023 11:01 AM EDTAssociated Order(s): IP CONSULT TO CARDIOLOGY CARDIOLOGY CONSULT Patient Name: Yony Vega Date of Consult: 11/13/2023 Reason for Consultation: Hx CAD s/p stent, CABG on stroke service, request per vascular surgery forupcoming CEA v stent ASSESSMENT AND PLAN: In summary, he is a 68 y.o. male with a history of HTN, mood disorder, iron deficiency, DM, GERD, right-sided carotid endarterectomy (2008), CAD/CABG (2007, Stent placed in 2014, Bypass in 2007), strokes (2008, 2011 with residual L side decrease sensation), colorectal cancer (s/p chemo, 2 years agoin remission since Last May 2023) who presented with transient increased left sided numbness (lasted 10 minutes), Headache. . CARDIAC PROBLEM LIST Lisbeth-Operative Optimization: CAD s/p CABG in 2007 and Stent in 2014. Hyperlipidemia History of Stroke x2 Given his cardiac history, as well as his report of intermittent chest pain prior to a high risk procedure, he would be classified as a high risk patient. The current symptomatology suggests that he would benefit from an ischemic evaluation prior to his intervention. - Nuclear pharmacologic stress testing for an ischemic evaluation - Echocardiogram to evaluate cardiac structure and function - From an antiplatelet therapy in the setting of management of his CAD specifically it would be reasonable to step down to Single Antiplatelet therapy with ASA 81 mg every day. - Continue statin Paroxysmal Atrial Fibrillation: On chart review and telereview he has had paroxysmal episodes of what appears to be atrial fibrillation with heart rates in the the low 100s. He is asymptomatic duringthese intervals, therefore his burden is largely unknown at this time. His current [id number] score is noted to be at 6 points with the points given for age, hypertension, history of stroke, history of vascular disease, and diabetes history. - Appears to currently be in sinus rhythm, would increase to coreg 12.5 mg BID which will also address his poorly controlled hypertension. - Anticoagulation: Givena [id number] at 6, would recommend heparin with bridge to doac. Timing should be coordinated from a vascular perspective to when this should be started and if there are any contraindications to AC from a neurologic perspective. - He should also go home with a mobile cardiac telemetry for monitoring his burden of atrial fibrillation as well, which could be followed up by his local software qa system specialist. - Would recommend echocardiogram as well to assess his current EF as above Hypertension: Does note that his blood pressure regimen has largely been changing as an outpatient and has been complicated by significant orthostasis as well. Current regimen has been carvedilol 6.25 and amlodipine. - Current regimen is amlodipine 5mg, and carvedilol 6.25. Would recommend uptitration of his coreg to 12.5 mg BID first given his atrial fibrillation that was noted on tele. Etienne Greenfield MD Department of Internal Medicine Resident [facility] HISTORY: It was my pleasure to see . Yony Vega in consultation at the [facility] on 11/13/2023 for evaluation of his Pre-operative assessment given his cardiac history. He is a pleasant 68 y.o. male with a history of HTN, mood disorder, iron deficiency, DM, GERD, right-sided carotid endarterectomy (2008), CAD/CABG (2007, Stent placed in 2014, Bypass in 2007), strokes (2008, 2011 with residual L side decrease sensation), colorectal cancer (s/p chemo, 2 years ago in remission since Last May 2023) who presented with transient increased left sided numbness (lasted 10 minutes), Headache. On discussion with the patient, he does report that he has been having a difficult time with management of his blood pressure as it has been complicated by what sounds as orthostatic hypotension, with lightheadedness and dizziness. He also endorses that he has been having rest chest pain/pressure that radiates into his neck, which he attributes this to his reflux as it is associated with a sense of abdominal pressure as well. Notably on his admission tele he was noted to have coarse afib, which he has not been told that he has had this previously. He is currently asymptomatic from a chest pain, pressure and palpitation perspective and did not have symptoms during his episode during admission either. From a chat review perspective, he has had a 5x vessel CABG completed in 2004, followed by an obtuse marginal stent completed in 2014. The patient is unsure if the stent during that time was successful, and reports that his last appointment he was told that no changes were needed. No recent echo orstress testing either. PAST MEDICAL HISTORY: SOCIAL HISTORY He reports that he has never smoked. He has never used smokeless tobacco. He reports that he does not currently use alcohol. He reports that he does not use drugs. FAMILY HISTORY His family history is not on file. He has no family status information on file. PAST MEDICAL HISTORY He has a past medical history of Anxiety, Arteriosclerosis of carotid artery, CAD (coronary artery disease), Colostomy in place, CVA (cerebral vascular accident) (2011), Diabetes mellitus, GERD (gastroesophageal reflux disease), HLD (hyperlipidemia), HTN (hypertension), NSTEMI (non-ST elevated myocardial infarction), ALEJANDRO (obstructive sleep apnea), Osteoporosis, Parastomal hernia, and Rectal cancer. PAST SURGICAL HISTORY His has a past surgical history that includes tonsillectomy (1984); hernia repair (Left, 2004); hernia repair (1997); other surgical (2004); other surgical (1991); coronary artery bypass graft (2008); eye surgery (2021); endarterectomy carotid subclavian vertebral (2008); coronary stent placement (2014); heart catheterization (2014); colonoscopy diagnostic; and large bowel surgery. ALLERGIES No Known Allergies HOME MEDICATIONS Medications Prior to Admission Medication Sig Dispense Refill Last Dose Ascorbic acid 500 MG tablet Take 1 tablet by mouth daily. Aspirin (Aspir-Low) [address] tablet Take 1 tablet by mouth daily. bisacodyl [address] Take all 4 tablets at 11am the day before surgery 4 tablet 0 carveDILOL 3.125 MG tablet Take 1 tablet by mouth 2 times daily with meals. chlorhexidine 4 % Liquid Apply 2 Applications topically As directed. 236 mL 0 Clopidogrel 75 MG tablet Take 1 tablet by mouth daily. DULoxetine [address] Particles capsule DR Take 1 capsule by mouth daily. Ergocalciferol 1.25 MG (71403 UT) capsule Take 1 capsule by mouth once a week. Gabapentin 300 MG capsule Take 1 capsule by mouth daily. insulin glargine (Semglee) 100 UNIT/ML Solution Pen-injector injection Inject 50 Units under the skin 2 times daily. Insulin Lispro 100 UNIT/ML vial Inject under the skin 3 times daily (take before meals). magnesium oxide 400 MG tablet Take 1 tablet by mouth daily. metroNIDAZOLE 500 MG tablet Take 2 tablets (1000 mg) at 1pm, 2pm, and 9pm the day before your procedure. 6 tablet 0 Neomycin 500 MG tablet Take 2 tablets (1000 mg) at 1pm, 2pm, and 9pm the day before your procedure.6 tablet [address] omepraz[address] capsule Take 1 capsule by mouth daily. Polyethylene glycol 17 GM/SCOOP Powder powder 11 AM: Take entire contents over 2 hours as instructed. 255 g 0 Rosuvastatin 20 MG tablet Take 1 tablet by mouth daily. ROYAL JELLY PO Take by mouth daily. CURRENT MEDICATIONS aspirin 81 mg Oral Daily carveDILOL 6.25 mg Oral Q12H Clopidogrel 75 mg Oral Daily DULoxetine 60 mg Oral QHS enoxaparin 40 mg Subcutaneous Q24H Gabapentin 300 mg Oral QHS insulin glargine 40 Units Subcutaneous Q12H Insulin lispro Subcutaneous 4x daily w/meals, HS Pantoprazole 40 mg Oral Daily Rosuvastatin 20 mg Oral Daily Senna 8.6 mg Oral QAM Or Senna 8.6 mg Per NG tube QAM REVIEW OF SYSTEMS: A full review of systems was preformed and was negative unless otherwise noted. PHYSICAL EXAM: Intake/Output Summary (Last 24 hours) at 11/13/2023 1102 Last data filed at 11/13/2023 0928 Gross per 24 hour Intake 905.4 ml Output 650 ml Net 255.4 ml Temp: [97.9 F (36.6 C)-98.4 F (36.9 C)] 98 F (36.7 C) Pulse (Heart Rate): [67-89] 67 Resp Rate: [11-18] 18 BP: (172-213)/(75-104) 178/86 O2 Sat (%): [92 %-95 %] 94 % Weight: [65.3 kg (144 lb)] 65.3 kg (144 lb) BP 178/86 (BP Location: Left arm, BP Position: Lying) Pulse 67 Temp 98 F (36.7 C) (Oral) Resp18 Ht 1.676 m (5' 6) Wt 65.3 kg (144 lb) SpO2 94% BMI 23.24 kg/m Smoking Status Never General appearance: The patient is alert, oriented, cooperative and in no distress. Heent: Normocephalic. No xanthelasma, normal conjunctiva. Normal teeth and gums with no cyanosis. Extraocular motions are normal. Pupils are equal, round, and reactive to light. Neck: The thyroid is not enlarged and is symmetric, without tenderness, masses or nodules. Back: Symmetric, no curvature. ROM normal. No CVA tenderness. Chest: No pectus excavatum. Clear to auscultation bilaterally. Normal effort and percussion. Heart: Regular rate and rhythm. S1, S2 normal. No murmurs, clicks, rubs or gallops. Normal, non-displaced, PMI. There is no jugular venous distension noted. Normal carotid upstrokes without bruits. Abdomen: Soft, non-tender. Normal appearance. Bowel sounds normal. No pulsatile masses or organomegaly. Extremities: Normal, atraumatic, no cyanosis or edema. No ulcers. Musculoskeletal: Normal range of motion. There is no kyphoscoliosis. Gait is normal Pulses: All pulses 2+ and symmetric. Skin: Skin color, texture, turgor normal. No rashes or lesions. Psychiatric: Mood, memory, affect and judgment are normal. DATA REVIEWED: Lab Results Component Value Date SODIUM 140 11/13/2023 POTASSIUM 3.6 11/13/2023 GLUCOSE 230 (H) 11/13/2023 GLUCOSE 215 (H) 11/13/2023 CHLORIDE 100 11/13/2023 CO2 30 11/13/2023 BUN 16 11/13/2023 CREATSERUM 0.76 11/13/2023 Lab Results Component Value Date WBC 5.38 11/13/2023 HGB 12.3 (L) 11/13/2023 HCT 37.7 (L) 11/13/2023 PLATELET 253 11/13/2023 MCV 83.6 11/13/2023 No results found for: TROP, BNP Unable to find Echocardiograms/cath films in our system. On [place] everywhere there are notes fro hiscardiologist abdon report an echocardiogram from 09/2021 with an EF of 55%, G2DD and a PASP of 40 which was completed around the time that he was admitted for an NSTEMI. Associated attestation - Joe Bean MD, PhD - 11/13/2023 11:59 AM EDT I independently evaluated the patient and developed the plan for management of the patient along with Dr. Greenfield on 11/13/2023. I have reviewed the note and edited the essential parts, which reflect my own impression and plan. I agree with the chief complaint, history, exam, and plan as detailed in the note. I have independently reviewed all relevant diagnostic tests. Based on the history, exam, andreview of relevant diagnostic test, I agree with the medical decision making. Joe Bean MD, PhD, [facility] Management Tra[employer], Cardio-Oncology Division of Cardiology * Waqar Yao MD - 11/12/2023 4:23 PM EDTAssociated Order(s): IP CONSULT TO SURGERY - VASCULAR Images from the original note were not included. Peripheral Vascular Surgery Initial Consult Evaluation Note: Consult: 11/12/2023, 3:23 PM Reason for Consult: Symptomatic R Carotid Stenosis (>70%) Assessment and Plan: 68 y.o. male with past medical history notable for CAD s/p CABG in 2007 (OSH) and stent in 2014, previous CVA c/g L-sided numbness 2/2 RCIA internal carotid artery s/p CEA ~2011, colorectal cancer s/p APR w/ LPLND (2019), and reported PAD s/p R pop, R anterior tibial angioplasties (2014) and L anterior tibial, L peroneal, and L popliteal angioplasties (2015) who presents to [facility] with L facial numbness, word slurring, and balance issues. Stroke code was called, and patient underwent carotid ultrasound showing 70-99% stenosis R JUSTUS. Vascular Surgery consulted for further evaluation and management. . - No acute surgical intervention warranted. - Patient would benefit from surgical intervention given extent of stenosis and current symptoms - Recommend admission to medicine, continue DAPT if no contraindications, recommend consult to cardiology given cardiac hx - Given previous R CEA, will discuss possibility of carotid stent vs repeat CEA. - Will follow up MRI results The patient was seen and discussed with Dr. Michel PVS chief-resident collection correspondent. Thank you for allowing us to take part in the management of this patient. Waqar Yao MD History of Present Illness: Yony Vega is a 68 y.o. male with past medical history notable for CAD s/p CABG in 2007 (OSH) and stent in 2014, previous CVA c/g L-sided numbness 2/2 RCIA internal carotid artery s/p CEA ~2011,colorectal cancer s/p APR w/ LPLND (2019), and reported PAD s/p R pop, R anterior tibial angioplasties (2014) and L anterior tibial, L peroneal, and L popliteal angioplasties (2015) who presents to [facility] with L facial numbness, word slurring, and balance issues. Stroke code was called, and patient underwent carotid ultrasound showing 70-99% stenosis R JUSTUS. Vascular Surgery consulted for further evaluation and management. Per patient, he has had progressive dizziness and worsening imbalance over the past two weeks. He has had several falls in this time but denies any LOC or headstrike. Starting , patient reports visual hallucinations with bright spots or floaters in his visual field. He denies symptoms c/w amaurosis fugax. Patient notes that over the past day he has had new onset facial weakness lasting <30 minutes. Patient's son, at bedside, noted that he saw patient on 11/10 and noted he was slurring his speech and having episodes of nonsensical speech prompting presentation to OSH. At OSH, patient underwent CTA of head and neck that was c/f R carotid dissection prompting [facility]. Once at [facility], Neurovascular was engaged and recommend optaining MRI. Carotid duplex was obtained given concern of R carotid dissection. While no dissection was seen, exam was limited, and there was e/o of >70% of stenosis. On exam, patient is pleasant and conversational. Has dopplerable DP and PT pulses bilaterally, and palpable radial and femorals. Well-healed surgical scar overlying Rcarotid. Patient denies any radiation to his neck. He does note taking statin and DAPT (currently held). Review of Systems: General: denies fevers, chills. HEENT: denies nasal congestion, URI symptoms, headache. CV: denies chest pain, pressure in the chest. Resp: denies SOB, cough, wheezing. GI: denies abdominal pain, nausea, vomiting, diarrhea, constipation. : denies dysuria, hematuria. MSK: denies myalgias, joint swelling. Neuro: reports numbness, tingling, (baseline). Past History: Past Medical History: Diagnosis Date Anxiety Arteriosclerosis [...] hand HERNIA REPAIR 1998 umbilical OTHER SURGICAL 1991 fx right arm TONSILLECTOMY 1984 COLONOSCOPY DIAGNOSTIC LARGE BOWEL SURGERY Social History Tobacco Use Smoking status: Never Smokeless tobacco: Never Vaping Use Vaping status: Never Used Substance Use Topics Alcohol use: Not Currently Comment: Wine rarely Drug use: Never No Known Allergies (Not in a hospital admission) Objective Findings: Vital Signs (24hrs): Temp: [97.8 F (36.6 C)-98.2 F (36.8 C)] 98.2 F (36.8 C) Pulse (Heart Rate): [75-89] 80 Resp Rate: [15-17] 17 BP: (156-194)/(73-90) 172/75 O2 Sat (%): [92 %-95 %] 94 % Weight: [67.1 kg (148 lb)] 67.1 kg (148 lb) Intake/Output Summary (Last 24 hours) at 11/12/2023 1523 Last data filed at 11/12/2023 0851 Gross per 24 hour Intake -- Output 875 ml Net -875 ml Physical Exam: Gen: alert and oriented x3, no acute distress, well-nourished, Body mass index is 23.18 kg/m . Neuro: moves all extremities equally and purposefully numbness over L side Head: normocephalic and atraumatic, no lacerations or contusions Neck: Well-healed surgical scar overlying R neck CV: regular rate, regular rhythm by palpation of radial pulse Resp: unlabored, equal chest rise, on RA Abdomen: soft, non-distended, non-tender, no rebound tenderness or guarding, no masses or hernias Skin: warm and dry, no rashes Extremities: warm, well-perfused, capillary refill < 2 seconds, no edema Pulses: Dopplerable DP and PT bilaterally, Diagnostic Results: Imaging: XR CHEST PA AND LATERAL 2 VIEWS Narrative: EXAM: XR CHEST PA AND LATERAL 2 VIEWS, 11/12/2023 11:38 AM COMPARISON: No prior studies available for comparison. CLINICAL INDICATIONS: R/o PNA RELEVANT CLINICAL HISTORY: FINDINGS: (Adequate technique) Implanted Devices: None Lungs: Clear, without mass, interstitial disease, or consolidation. Pleural Spaces: No pleural effusion. No pneumothorax. Mediastinum and Kirstie: Normal Cardiac silhouette and great vessels: Normal heart size. Unremarkable aorta. Chest Wall: Median sternotomy. Indeterminate age nondisplaced fracture of the proximal left humerus. Impression: IMPRESSION: No acute cardiopulmonary disease Indeterminate age nondisplaced fracture of the proximal left humerus, I suggest further evaluation with dedicated radiograph. ANGIO BRAIN (OUTSIDE IMAGE) Outside Imaging Study for Support of Clinical Care. This study was sent from an outside facility [facility] for support of clinical care of the patient within the [facility]. Labs: CBC Lab Results Component Value Date WBC 6.24 11/12/2023 HGB 13.4 11/12/2023 HCT 41.6 11/12/2023 PLATELET 265 11/12/2023 MCV 84.2 11/12/2023 Chem 7: Lab Results Component Value Date SODIUM 139 11/12/2023 POTASSIUM 3.7 11/12/2023 CHLORIDE 100 11/12/2023 CO2 30 11/12/2023 BUN 10 11/12/2023 CREATSERUM 0.77 11/12/2023 GLUCOSE 281 (H) 11/12/2023 Liver Function Tests: Lab Results Component Value Date ALT 17 11/12/2023 AST 28 11/12/2023 ALKPHOS 94 11/12/2023 BILITOTAL 0.5 11/12/2023 BILIDIRECT 0.1 11/12/2023 Associated attestation - Boom Ford MD - 11/14/2023 7:18 AM EDT Patient seen and examined and I agree with the Ticket Clerk note and plan which I have reviewed and addended as appropriate. Symptomatic carotid artery stenosis. Will need CEA after 48 hours since onset of symptoms. Will proceed Tuesday 11/14 for right CEA I provided a substantive portion of the care for this patient. I personally performed all aspects of the medical decision making for this encounter. I have reviewed and verified this with the Ticket Clerk/ADRIÁN so that it accurately reflects our care. I spoke with the patient and provided written and verbal instructions for the patient. Cayetano Ford MD Vascular Surgery * Barry Chin MD - 2023 9:35 PM EDTAssociated Order(s): IP CONSULT TO NEUROVASCULAR Images from the original note were not included. Neurovascular Evaluation Note Evaluation Date: 11/12/2023 Unit: [id number] Consultation was requested by Dr. Dalton Mandujano MD Patient status: Emergency Length of stay: 0 days Reason for Consult/Chief Complaint L facial numbness, WALLACE, balance issues; face has improved, feels on L side NV routine History of Present Illness Yony Vega is a 68 y.o. male with PMH significant for htn, mood disorder, iron deficiency, DM,GERD, stroke, right-sided carotid endarterectomy (2008), CAD/CABG (2007, Stent placed in 2014, Bypass in 2007), colorectal cancer (s/p chemo, 2 years ago in remission since Last May 2023) who presents with L facial numbness, WALLACE, balance issues; face has improved, feels on L side . A stroke alert was not called for STAT consultation. LKW: 11/09 @1999 1 year of BLE gave-out, progressive worsen, thought was associated with back pain. 2 week of worsening dizziness/imbalance intermittent since his last stroke (uses walker). 4 falls in the last week. Last fall on . All falls were thought due to to balance issues. Denies LOC.He was told by his PCP to sit down immediately if he feels imbalance to avoid falls. This week started night 11/08, while sitting on the couch, with intermittent visual hallucination (girl, movement at L sided visions), with some scary hallucination and distorted visions. During the day, he has intermittent new L side facial numbness and lip numbness, lasted about 10 minutes with headache (back of the neck, occipital progressed to frontal and around R eye.). He has had chronic intermittent L side numbness without weakness. Per his son, he was not speaking right, non- sense/slurred speech (lasted about 1 hour), imbalance. Then he was convinced to go to OSH ED. 3 weeks ago he went to chiropractor with neck adjustment. Chronic neck stiffness. No focal neck pain. Blurry vision with hx of cataract for 1 year. No acute changes. WALLACE with R sided scientologist tenderness. 3 months for bad ones. Woke him up from sleep. Telestroke by Dr. Gaffney [facility]/CTA:no LVO Recommended routine [facility] 2008, 2011 strokes with residual L side decreased sensation (not able to distinguish between hot and cold), numbness, lack of coordinations. DAPT for Bypass initially and then monotherapy for ASA 81 mg. 1 month later had a stroke, then backon DAPT (since 2011). Without missing doses. Not smoking. 2 months ago with BP medication changes. Walker daily for balance mainly. Onc hx Patient followed by Dr. Galarza 05/11/2022 for robotic APR with LPLND on 05/26/20 for rectal cancer [id number] s/p chemoradiation 08/13/2019, completed ELMA 02/24/2020, was found to have colostomy prolapse at that time with plans for possible stoma revision after meeting with stoma therapy team with history of previous hernia repair with recurrence and now peristomal hernia and prolapse. Review of Systems See hpi Neurovascular-specific History / Information Home antiplatelet/anticoagulation therapy: ASA 81mg and plavix Patient Current Risk Factors: Stroke risk factors include hypertension or diabetes mellitus. Prior stroke history: strokes Family Hx of Stroke: Parents: unknown Siblings: unknown Stroke Diagnostic/Treatment Eligibility Information Out of window for lyics No LVO on CTA at OSH Stroke Clinical Assessment Information: NIHSS (Provider) Flowsheet Row First Filed Value Provider NIH Stroke Scale NIH Interval (Provider) -- NIH Level of Conciousness (Provider) 0 filed on 11/12/2023 032 NIH LOC Questions (Provider) 0 filed on 11/12/2023 032 NIH LOC Commands (Provider) 0 filed on 11/12/2023 032 NIH Best Gaze (Provider) 0 filed on 11/12/2023 032 NIH Visual (Provider) 0 filed on 11/12/2023 032 NIH Facial Palsy (Provider) 0 filed on 11/12/2023 032 NIH Left Arm Motor (Provider) 0 filed on 11/12/2023 032 NIH Right Arm Motor (Provider) 0 filed on 11/12/2023 032 NIH Left Leg Motor (Provider) 0 filed on 11/12/2023 032 NIH Right Leg Motor (Provider) 0 filed on 11/12/2023 032 NIH Limb Ataxia (Provider) 0 filed on 11/12/2023 032 NIH Sensory (Provider) 0 filed on 11/12/2023 032 NIH Best Language (Provider) 0 filed on 11/12/2023 032 NIH Dysarthria (Provider) 0 filed on 11/12/2023 032 NIH Extinction and Inattention (Provider) 0 filed on 11/12/2023 032 NIH Total Score (Provider) 0 filed on 11/12/2023328 Is NIH=0 Within 180 min of Last Known Well Time? -- Stroke Scales Flowsheet Row Most Recent Value ABCD2 SCORE (Calculated) 5 filed on 11/12/2023 033 NIH Total Score (Provider) 0 filed on 11/12/2023 032 Past Medical History Medical History: Past Medical History: Diagnosis Date Anxiety Arteriosclerosis of carotid artery CAD (coronary artery disease) Colostomy in place CVA (cerebral vascular accident) 2011 Diabetes mellitus GERD (gastroesophageal reflux disease) HLD (hyperlipidemia) HTN (hypertension) NSTEMI (non-ST elevated myocardial infarction) ALEJANDRO (obstructive sleep apnea) Osteoporosis Parastomal hernia Rectal cancer SURGICAL HISTORY: Past Surgical History: Procedure Laterality Date EYE SURGERY 2021 CORONARY STENT PLACEMENT 2014 HEART CATHETERIZATION 2014 CORONARY ARTERY BYPASS GRAFT 2009 ENDARTERECTOMY CAROTID SUBCLAVIAN VERTEBRAL 2009 HERNIA REPAIR Left 2005 inguinal OTHER SURGICAL 2005 graft- burn right hand HERNIA REPAIR 1998 umbilical OTHER SURGICAL 1992 fx right arm TONSILLECTOMY 1985 COLONOSCOPY DIAGNOSTIC LARGE BOWEL SURGERY SOCIAL HISTORY: Social History Tobacco Use Smoking status: Never Smokeless tobacco: Never Vaping Use Vaping status: Never Used Substance Use Topics Alcohol use: Not Currently Comment: Wine rarely Drug use: Never Medications PRIOR TO ARRIVAL MEDS: Prior to Admission medications Medication Sig Start Date End Date Taking? Authorizing Provider Ascorbic acid 500 MG tablet Take 1 tablet by mouth daily. Historical Provider Aspirin (Aspir-Low) [address] tablet Take 1 tablet by mouth daily. Historical Provider bisacodyl [address] Take all 4 tablets at 11am the day before surgery 07/19/23 Angeli Zarate DO carveDILOL 3.125 MG tablet Take 1 tablet by mouth 2 times daily with meals. Historical Provider chlorhexidine 4 % Liquid Apply 2 Applications topically As directed. 07/19/23 Angeli Zarate DO Clopidogrel 75 MG tablet Take 1 tablet by mouth daily. Historical Provider DULoxetine [address] Particles capsule DR Take 1 capsule by mouth daily. Historical Provider Ergocalciferol 1.25 MG (64210 UT) capsule Take 1 capsule by mouth once a week. Historical Provider Gabapentin 300 MG capsule Take 1 capsule by mouth daily. Historical Provider insulin glargine (Semglee) 100 UNIT/ML Solution Pen-injector injection Inject 50 Units under the skin 2 times daily. Historical Provider Insulin Lispro 100 UNIT/ML vial Inject under the skin 3 times daily (take before meals). HistoricalProvider Lisinopril 10 MG tablet Take 1 tablet by mouth daily. Patient not taking: Reported on 07/19/2023 Historical Provider magnesium oxide 400 MG tablet Take 1 tablet by mouth daily. Historical Provider metroNIDAZOLE 500 MG tablet Take 2 tablets (1000 mg) at 1pm, 2pm, and 9pm the day before your procedure. 07/19/23 11/22/23 Angeli Zarate DO Neomycin 500 MG tablet Take 2 tablets (1000 mg) at 1pm, 2pm, and 9pm the day before your procedure.07/19/23 11/22/23 Angeli Zarate DO omeprazole [address] capsule Take 1 capsule by mouth daily. Historical Provider Polyethylene glycol 17 GM/SCOOP Powder powder 11 AM: Take entire contents over 2 hours as instructed. 07/19/23 Angeli Zarate DO Rosuvastatin 20 MG tablet Take 1 tablet by mouth daily. Historical Provider ROYAL JELLY PO Take by mouth daily. Historical Provider Current Meds: Current Facility Administered Meds: No current facility-administered medications for this encounter. Current Outpatient Medications Medication Sig Dispense Refill Ascorbic acid 500 MG tablet Take 1 tablet by mouth daily. Aspirin (Aspir-Low) [address] tablet Take 1 tablet by mouth daily. bisacodyl [address] Take all 4 tablets at 11am the day before surgery 4 tablet 0 carveDILOL 3.125 MG tablet Take 1 tablet by mouth 2 times daily with meals. chlorhexidine 4 % Liquid Apply 2 Applications topically As directed. 236 mL 0 Clopidogrel 75 MG tablet Take 1 tablet by mouth daily. DULoxetine [address] Particles capsule DR Take 1 capsule by mouth daily. Ergocalciferol 1.25 MG (13893 UT) capsule Take 1 capsule by mouth once a week. Gabapentin 300 MG capsule Take 1 capsule by mouth daily. insulin glargine (Semglee) 100 UNIT/ML Solution Pen-injector injection Inject 50 Units under the skin 2 times daily. Insulin Lispro 100 UNIT/ML vial Inject under the skin 3 times daily (take before meals). Lisinopril 10 MG tablet Take 1 tablet by mouth daily. (Patient not taking: Reported on 07/19/2023) magnesium oxide 400 MG tablet Take 1 tablet by mouth daily. metroNIDAZOLE 500 MG tablet Take 2 tablets (1000 mg) at 1pm, 2pm, and 9pm the day before your procedure. 6 tablet 0 Neomycin 500 MG tablet Take 2 tablets (1000 mg) at 1pm, 2pm, and 9pm the day before your procedure.6 tablet [address] omeprazole [address] capsule Take 1 capsule by mouth daily. Polyethylene glycol 17 GM/SCOOP Powder powder 11 AM: Take entire contents over 2 hours as instructed. 255 g 0 Rosuvastatin 20 MG tablet Take 1 tablet by mouth daily. ROYAL JELLY PO Take by mouth daily. Scheduled Meds: Continuous Infusions: PRN Meds: Vitals Objective Findings: Vital Signs (24hrs): Temp: [97.8 F (36.6 C)] 97.8 F (36.6 C) Pulse (Heart Rate): [75-82] 82 Resp Rate: [15-16] 16 BP: (185-194)/(79-82) 194/79 O2 Sat (%): [93 %-95 %] 93 % There is no height or weight on file to calculate BMI. Lines/Drains/Airways/Wounds: Patient Lines/Drains/Airways Status Active Lines, Drains, Airways, & Wound Overview None Physical Exam General: Laying comfortably in bed; in no acute distress. CV: RRR. Pulmonary: No increased work of breathing, equal chest rise bilaterally, no audible wheezing. Abdomen: soft, non-tender Ext: No cyanosis, edema, or deformity Skin: No rash Neurological Examination Psych and Mental status: alert; oriented to person, place, year, and month; good attention. Abstract comprehension intact Speech/language: fluent; comprehension intact; object naming intact; repetition intact Cranial nerves: CN II visual campbell full to confrontation without visual extinction CN III, IV, PERRL. EOMI. CN V facial sensation intact to light touch bilaterally in V1, V2, V3 CN VII face, smile, eyebrow raise/closure symmetric CN VIII hearing grossly intact to voice CN IX & X soft palate elevates symmetrically in the midline, no dysarthria CN XI shoulder shrug full strength bilaterally CNXII tongue protrudes midline Motor: Normal bulk and tone. Right Arm: no drift Left Arm: no drift Right Leg: no drift Left Leg: no drift Reflexes: Right Left Comments Biceps 2 2 Triceps Brachioradialis 2 2 Patellar 2 2 Achilles 2 2 Jaw jerk Gongora - + Babinski Down Down Coordination: [id number] intact bilaterally. Dyxg-wm-xzly intact bilaterally. Sensation: intact to light touch throughout without extinction. Gait: deferred Laboratory Results Diagnostics/Procedures: Labs-CBC WBC/Hgb/Hct/Plts: 6.24/13.4/41.6/265 (11/12 235) Labs-Chem 7([facility]) Bun/Creat/Cl/CO2/Glucose: 10/0.77/100/30/96 (11/12 235) Na/K+/Phos/Mg/Ca: 139/3.7/--/--/-- (11/12 235) Labs-Coags Additional Labs Lab Results Component Value Date CHOLESTEROL 180 11/12/2023 TRIG 188 (H) 11/12/2023 HDL 33 (L) 11/12/2023 LDLCALC 109 (H) 11/12/2023 Labs-Hemoglobin A1C No results found for: HGBA1C Imaging CT Stroke Head:OSH no acute CTA Brain/Neck: osh Assessment/Impression Yony Vega 68 yo male with PMH of Strokes with residual L side intermittent numbness, CABG on DAPT, colorectal cancer, post chemo on remission, presents with L lower facial and lip numbness withheadache, resolved in 10 minutes, resolved slurred/non-sense speech, recent visual hallucinations. OSH CTH/CTA no acute or LVO. NIHSS=0 mRS=3 daily walker use Obtain MRI W/WO given cancer hx, to rule out new ischemic stroke Transient sensory changes with WALLACE, possible migraine WALLACE with associated intermittent R scientologist tenderness without acute changes in his blurry visions at baseline. Would obtain CRP for now. Infectious work-up for visual hallucinations Focal carotid dissection already on home DAPT Plan -Patient is not a candidate for iv thrombolysis due to out of window and no thrombectomy due to no LVO - [facility] 2[facility] eval of carotid stenosis. -Please admit to [facility]U for work-up. -Swallow evaluation prior to any oral intake -Blood pressure goal SBP <220 mmHg and DBP <110 mmHg -Resume home DAPT -Recommend a MRI Brain wo /w (cancer hx) -Recommend carotid doppler -Recommend CRP -PT, OT and Speech therapy evaluation if patient continues to have symptoms -Continuous telemetry, obtain EKG Other problems: Complexity. Any conditions listed below are present on admission unless otherwise specified. . Other medical problems: Code Status: No Order DVT prophylaxis: subcutaneous lovenox Diet: No diet orders on file Patient and plan is pending to discuss with neurovascular fellow, Dr. Brush Signed, Plan is preliminary, until being attested by the attending, Dr. Yeimy MONTE, Barry Chin MD, PhD Neurology PGY-2 Associated attestation - Brady Gaffney MD - 11/25/2023 11:42 AM EDT I have seen and examined the patient with the resident on 11/12/2023. I have personally reviewed all the imaging as noted below, laboratory data and reviewed the resident's note. I agree with resident's assessment and plan with the following additions: 68 y.o. male with PMH significant for HTN, mood disorder, iron deficiency, DM, GERD, stroke, right-sided carotid endarterectomy (2008), CAD/CABG (2007, Stent placed in 2014, Bypass in 2007), strokes (2008, 2011 with residual L side decrease sensation), colorectal cancer (s/p chemo, 2 years ago in remission since Last May 2023) who presented with transient increased left sided numbness (lasted 10 minutes), Headache. He complains of 2 weeks of worsening weakness and dizziness (room spinning) and hallucinations. CTH OSH: No acute findings Vasc Duplex Carotid BL: R ICA stenosis (70-99%). L ICA stenosis (1-49%). LDL 109, A1c 7.8 Follow up MRI brain. Continue ASA and statin. Consult NSG. [facility] Discharge [facility]* Discharge Instructions* Jaleel Navarrete APRN-CLOUD DEVELOPER - 11/16/2023 9:04 AM EDT Please take these discharge instructions to your primary care doctor follow appointment to show them,keep them for your reference and refer to them often for follow up appointments. It is best to write your appointments on a personal calendar so you do not miss them. Call if you need to change any appointments please. Keep an up-to-date medication list with you at all times. Stroke Education: What are the most common symptoms of stroke? The following are the most common symptoms of stroke. However, each individual may experience symptoms differently. If any of these symptoms are present, call 911 (or your local ambulance service) immediately. Treatment is most effective when started immediately. Symptoms may be sudden and include: -Weakness or numbness of the face, arm, or leg, especially on one side of the body -Confusion or difficulty speaking or understanding -Problems with vision such as dimness or loss of vision in one or both eyes -Dizziness or problems with balance or coordination -Problems with movement or walking -Severe headaches with no other known cause, especially if sudden onset All of the above warning signs may not occur with each stroke. Do not ignore any of the warning signs, even if they go away - take action immediately. The symptoms of stroke may resemble other medical conditions or problems. Always consult your physician for a diagnosis. We have provided both written and verbal education to the patient and family regarding ischemic andhemorrhagic strokes. We have discussed the warning signs/symptoms as well as causes of stroke. We have discussed the importance of activating 911/EMS in the event of these symptoms. We have reviewed the patient's personal risk factors as well as education on reducing these risk factors. [facility] Personalized Stroke Treatment Plan My Stroke Type: [x] Ischemic Stroke (Blockage of blood flow to the brain) [] Hemorrhagic Stroke (Bleeding in the brain) [] TIA- Transient Ischemic Attack (mini-stroke) My Risk Factors Include: [x] High Blood Pressure [x] Diabetes [x] High Cholesterol [x] Heart Disease [] Atrial Fibrillation (Irregular Heart Rate) [] Smoking/Vaping/E-Cigarettes [] Obesity [] Clotting Disorder [] Alcohol Abuse [] Drug Abuse [x] Prior History [] Family History [] Obstructive Sleep Apnea My Follow-Up Treatment Goals: [x] Blood Pressure < 140/90 [] Stop Smoking, Vaping, and/or using E-Cigarettes Immediately [x] LDL < 70 [x] HgA1C levels < 7% [] Decrease BMI to < 25 [x] Take all ordered medications [] Avoid non-prescription or [id number] medication not cleared by your physician [x] Limit Alcohol use to no more than 1 drink per day for females and 2 drinks per day for males [] Do not drive until cleared [x] Follow up with PCP (Primary Care Provider) within a week of discharge to home [x] Follow-up with Neurovascular (Stroke Doctor) [x] Follow-up with Occupational,physical and speech therapy if ordered [x] Watch out for depression and seek treatment if needed Patient Stroke Resources CONTACTS FOR NEUROVASCULAR SERVICE: - Please first consider reaching out to your PCP (Primary Care Provider) for ongoing care needs andguidance. - You may call the neurovascular doctors office at [phone], if you have questions Mon-Fri between 8:30 am and 4:30 pm. - For off hours or the weekend you may call the office or the hospital stabilizer operator at and ask for the stroke resident collection correspondent to be paged. - If you have any other questions or needs, please call Zayra FERNANDEZ, RN, [facility] Nurse at [phone] Mon-Fri between 7:00am and 3:00pm. - Additional assistance may be found by reaching out to our Case Management Office at [phone]. *In the event of an Emergency: If you have a physical or psychiatric emergency call 911 or go to your local emergency department. You should also call your outpatient provider's emergency number. Other reference numbers: [facility] Intake Office at [phone]; [employer] at [phone]; or Suicide Prevention Hotline at 037-459-4565. *Helpful phone numbers: Free Crisis Hotline: 0-132-550-TALK ( ) Suicide Hotline: 406.190.7170 Seniors Suicide Hotline: 694.247.7898 [facility] Youth: [phone] Mental [facility]: [phone] (free counseling) [employer] Access Hotline: 194-850-WNSY (122-477-7127) 24-hour crisis text hotline: Text the word 4hope to 422-534 for crisis support. Texting this number is free if you have Verizon, T-[employer], [employer] or Sprint. [facility] Financial Assistance: If you want to learn more about these programs, please call .There are three programsto help you with the cost of your medical care: Medicaid, Hospital Care Assurance Program (HCAP) & jorge a If you are without Insurance and believe you may qualify for Medicaid/public assistance: The [facility] Department of Job and Family Services can now process newman (TANF), food (SNAP) and Medicaid Applications over the phone. Please call [phone] ([phone]) and apply over the phone or apply online at www.benefits.[place].gov. Monday-Monday 8am-12pm noon. Medication Assistance Programs [employer] [facility] [employer] members can buy 100+ common prescriptions for FREE, $3 or $6. Annual membership is $36 for individuals and $72 for families (up to 6 people, including pets). Sign up online or enroll at your nearest pharmacy! -[employer], web site can provide a significant number of coupons for medications at a much lower may. [place] Department of Aging The Department of Aging administers programs and services to meet the needs of older [place]. Services and resources offered per county may include transportation, housekeeping, meals and nutrition, personal care, case management, safety monitoring, home medical equipment, legal services, workday financials consultant, health and wellness, education, caregiver support, respite care, etc. Call to be connected to the [facility] agency on aging serving your community or visit aging.[place].gov/find-services. Request a consultation with a community resource expert at ltssi.age.[place].gov/ [facility] Stroke Support The [facility] Stroke Support Group is for stroke survivors, friends, and family members. Meets on the Monday of each month from 6:30pm-7:30pm at [facility] ([address]; [place] [address]). Contact Blanca Field, at [phone] or [email or web address]. If you are outside of the [facility], contact The [place] [employer] at www.stroke.org or 7-076-4-STROKE or for supports groups in your area. You may also refer to the Stroke Education booklet you received as part of your stroke education while you were a patient for additional resources. The [facility] recommends all recently hospitalized patients call their primary care physician/family doctor to schedule an appointment. You underwent a Carotid Intervention while you were on the Vascular Surgery Service. This procedure works directly on the blood vessels that supply your brain with blood. Should you develop any new symptoms that are stroke related in your recovery, you will need to seek medical care immediately. Please call your doctor right away or be seen at your local emergency department. Wound Care: Your incision is closed sutures under the skin. You may shower and gently wash your incision with soap and water using a clean wash cloth on the day after you arrive home. The bandages from the Operating Room may be removed prior to this shower. If you have gauze taped over the wound, this should be changed twice daily. After you shower, pat the wound dry. You may notice some numbness along the jaw bone - this is normal and could last for several weeks. Men: you will be more aware of this numbness if you shave. Gently shave this area to decrease the likelihood of nicks. Medications for Blood Thinning -- You will be discharged on the following medications for anticoagulation and antiplatelet purposes: Aspirin 81mg Plavix It is important to continue these medications until otherwise instructed by your vascular surgeon. If someone wants to stop these medications, please call the Vascular Surgery Offices prior to stopping them. Activity: Please follow these instructions: You may perform the following activities: -Walk as much as you can to increase your strength and endurance. -Use the railing for support when going up and down stairs. -Get 8 to 10 hours of sleep at night. Do not do the following: -reproduction order processor such as vacuuming, or heavy cleaning -Strenuous physical sports or exercise -Lift, pull or move objects greater than 5 pounds -High impact actvities such as jumping jacks or running -Yard work including mowing and gardening -No driving for 4 weeks or while taking narcotics Symptom Management: Pain Med A prescription for pain medicine will be sent home with you. Do not drive while taking prescriptionpain medicine. Eat when taking pain medicines to avoid nausea. Watch for constipation. Eat plenty of fruits, vegetables, juices, and drink 6 to 8 glasses of water each day. When your pain decreases switch to over the counter acetaminophen, like Tylenol. Follow the dose aslabel directs. Take an over the counter stool softeners twice daily while taking the narcotic pain medicine to prevent constipation. Take a stool softener twice a day as long as you remain on pain medicine. If you do not have a bowel movement within 5 days of your surgery, please take milk of magnesia. If you do not have a bowel movement within 12 hours of milk of magnesia, call the office. Incentive Spirometer Please use your incentive spirometer every day, at least 10 times per day, once you arrive home or to the retirement facility. Sit upright on the edge of the bed or in a chair. Seal your lips around the mouthpiece and take a deep and slow breath in. Notice the piston rise as you breathe in. The piston should reach the outlined area. Hold your breath in for at least 5 seconds and then exhale slowly. Allow the piston the fall to the bottom of the column. Allow yourself to rest and repeat. Use multiple times daily for greatest benefit. Take Your Medicines Take your prescribed medicines as ordered to avoid a set back in your treatment plan. Many of your medicines will cause undesirable side effects if stopped suddenly. Diet: Your doctor has recommended that you follow these diet instructions at home. Refer to the patient education materials you received during your hospital stay. If you would like more nutrition counseling, ask your doctor about making an appointment with an outpatient dietitian. Heart Healthy Diet to promote heart health. Choose healthy fats and oils such as canola or olive oil. Limit high cholesterol foods. Avoid added salt and caffeine in your foods. Notify Your Doctor or Nurse if you have any of the following: Wound Infection Symptoms Call your doctor or nurse right away if you have signs of infection at you wound such as: -More pain around the wound -Change in the amount , color and odor of drainage -The skin around the wound feels warm or has red streaks -The wound separates or opens up -You have a temperature greater than 101 Stroke Symptoms Call 911 if you suddenly have any of these signs of a stroke: -Numbness or muscle weakness -Trouble swallowing -Problems talking -Dizziness or feeling unsteady -Severe headache -Confusion Respiratory Changes Call your doctor or nurse if you have more shortness of breath, a cough that gets worse and blood in the sputum you cough up Deep Vein Thrombosis Symptoms Call your doctor or nurse right away if you have any signs of blood clots such as -Tender, swollen or reddened areas anywhere in your leg. -Numbness or tingling in your lower leg or calf, or at the top of your leg or groin -Skin on you leg looks pale or blue or feels cold to touch -Chest pain or have trouble breathing -Fever or chills Decreased Circulation Call your doctor or nurse if you have swelling, numbness or loss of feeling, color change in the skin to either very pale or blue snowden in color and more pain. Bleeding or bruising If you have bleeding, apply pressure to the site and hold the pressure firmly for 5 minutes. If thebleeding continues, apply pressure again and call 911. If the bleeding stopped, call your doctor toreport it. Call your doctor or nurse right away if you have increased bleeding from your site and increased bruising or a lump forms or gets larger under your skin at the site. Fever, Chills, or Flu Call your doctor or nurse if you have a temperature greater than 100.5 and 101 degrees F and/or chills. Nausea and Vomiting Call your doctor or nurse if you have nausea and vomiting that continues more than 24 hours, will not let you keep medicine down and will not let you keep fluids down Sudden Onset of Symptoms Call 911 if you suddenly have: -Leg weakness and spasm -Loss of bladder or bowel function -Seizure -Chest pain -Shortness of breath Unrelieved Pain Call your doctor or nurse if your pain gets worse or is not eased after taking your pain medicine. Additional Contacts: Evening and Weekend Contacts If you have questions or concerns during evening, weekend, or holiday hours, please call: -[facility] and [facility] stabilizer operator at [phone]. -[facility] stabilizer operator at [phone] Ask the stabilizer operator to page the on-call doctor for Vascular Surgery, the service that was responsible for your care while you were in the hospital. If you having an emergency, call 911. Please take these discharge instructions to your primary care doctor follow appointment to show them,keep them for your reference and refer to them often for follow up appointments. It is best to write your appointments on a personal calendar so you do not miss them,call if you need to change any appointments please. During your hospitalization, you did suffer a stroke. Education: What are the most common symptoms of stroke? The following are the most common symptoms of stroke. However, each individual may experience symptoms differently. If any of these symptoms are present, call 911 (or your local ambulance service) immediately. Treatment is most effective when started immediately. Symptoms may be sudden and include: Weakness or numbness of the face, arm, or leg, especially on one side of the body Confusion or difficulty speaking or understanding Problems with vision such as dimness or loss of vision in one or both eyes Dizziness or problems with balance or coordination Problems with movement or walking Severe headaches with no other known cause, especially if sudden onset All of the above warning signs may not occur with each stroke. Do not ignore any of the warning signs, even if they go away - take action immediately. The symptoms of stroke may resemble other medical conditions or problems. Always consult your physician for a diagnosis We have provided both written and verbal education to the patient and family regarding ischemic andhemorrhagic strokes. We have discussed the warning signs/symptoms as well as causes of stroke. We have discussed the importance of activating 911/EMS in the event of these symptoms. We have reviewed the patient's personal risk factors as well as education on reducing these risk factors. Personalized Stroke Treatment Plan My Stroke Type: [] Ischemic Stroke (Blockage of blood flow to the brain) [] Hemorrhagic Stroke (Bleeding in the brain) [] TIA- Transient Ischemic Attack (mini-stroke) My Risk Factors Include: [] High Blood Pressure [] Diabetes [] High Cholesterol [] Heart Disease [] Atrial Fibrillation (Irregular Heart Rate) [] Smoking [] Obesity [] Clotting Disorder [] Alcohol Abuse [] Drug Abuse [] Prior History [] Family History My Follow-Up Treatment Goals: [] Blood Pressure < 120/80 [] Stop Smoking Immediately [] LDL < 70 with CV Disease or <100 without [] HgA1C levels <7% [] Decrease BMI to <25 [x] Take all ordered medications [] Avoid non-prescription or over the counter medication not cleared by your physician [] Limit Alcohol use to no more than 1 drink per day for females and 2 drinks per day for males [] Do not drive until cleared [x] Follow up with PCP within a week of discharge to home [x] Follow-up with Neurovascular [x] Follow-up with Occupational,physical and speech therapy if ordered [x] Watch out for depression and seek treatment if needed Patient Stroke Resources: [facility] Stroke Support The [facility] Stroke Support Group is for stroke survivors, friends, andfamily members. Meets every Monday from 12:00PM to 1:00PM at [facility] ([facility]), [address] [place] [address] Haydee Betancourt, at [phone] option #4. If you are outside of the [place] area, contact The [place] [employer] at www.strokeassociation.org or -stroke(478025) for supports groups in your area. Also refer to the Stroke Education booklet you received as part of your stroke education while you were a patient. *If you need additional medical records or imaging disks please contact: Medical Information Management Department [facility] PH: [phone] M-F: 7am-12:30am; Sat: 8am-12pm *In the event of an Emergency: If you have a physical or psychiatric emergency call 911 or go to your local emergency department. You should also call your outpatient provider's emergency number. Other reference numbers: [facility] Intake Office at [phone]; [employer] at 806-784-1304; or Suicide Prevention Hotline at 414-688-4807. *Helpful phone numbers: Free Crisis Hotline: 1-377-739-TALK ( ) Suicide Hotline: 156.906.7894 Seniors Suicide Hotline: 460.642.5516 [facility] Youth: 410.904.9660 [facility]: [phone] (free counseling) [employer] Access Hotline: 197-321-BTYT (297-823-8099) 24-hour crisis text hotline: Text the word 4hope to 028-736 for crisis support. Texting this number is free if you have [employer], [employer], [employer] or [employer]. [facility] Financial Assistance: If you want to learn more about these programs, please call .There are three programsto help you with the cost of your medical care: Medicaid, Hospital Care Assurance Program (HCAP) & jorge a If you are without Insurance and believe you may qualify for Medicaid/public assistance: The [facility] Department of Job and Family Services can now process newman (TANF), food (SNAP) and Medicaid Applications over the phone. Please call [phone] ([phone]) and apply over the phone or apply online at www.benefits.[place].gov. Monday-Monday 8am-12pm noon. Medication Assistance Programs [employer] members can buy 100+ common prescriptions for FREE, $3 or $6. Annual membership is $36 for individuals and $72 for families (up to 6 people, including pets). Sign up online or enroll at your nearest pharmacy! -[employer], web site can provide a significant number of coupons for medications at a much lower may. * Medications* EUSEBIO Field - 11/16/2023 9:02 AM EDT Know your medicines Make sure you know why you are taking each medicine. Make a master list of all your medicines. Write down the medicine names and doctors' names. Includedoses and side effects too. And write down why you take each medicine. Include all prescription gichuoy-won-bqkyhvq medicines, vitamins, and supplements. Keep this list up to date. Take a copy to each doctor visit. Know when you will run out of each medicine. Ask your pharmacist if there are ways the drugstore can remind you to refill your medicines so you do not run out. Write refill reminders on your calendar. Don't wait until you have a few pills left. Ask your pharmacist to plan your refills so that you can pharmacy picking technician all your medicines at the same time. This can mean fewer trips to the drugstore. If we have prescribed you a new medication during your stay, please contact with your primary physician for refills * Discharge Instr - Activity* EUSEBIO Field - 11/16/2023 9:02 AM EDT Activity -- Please follow these instructions: -Advance your activity as you can tolerate - You may walk all you want. You may go up and down the steps. Use the railing for support - It is normal for your energy level and sleep patterns to change after a stroke - Take rest periods during the day as needed - Complete recovery may take several weeks, months, up to a year. Patience is griggs. * Discharge Instr - Diet* EUSEBIO Field - 11/16/2023 9:03 AM EDT Current Diet Orders Procedures DIET NPO with meds Standing Status: Standing Number of Occurrences: 1 Order Specific Question: NPO Meds: Answer: with meds DIET NPO with meds Standing Status: Standing Number of Occurrences: 1 Order Specific Question: NPO Meds: Answer: with meds * Discharge Instr - Notify* EUSEBIO Field - 11/16/2023 9:03 AM EDT Notify Your Doctor if you have any of the following: NEUROLOGICAL CHANGES-- Change in alertness Increased sleepiness Nausea and vomiting New onset of numbness or weakness in arms or legs New problems with your bowels or bladder New or worse problems with balance or walking Seizures, new or worsening UNRELIEVED HEADACHE PAIN-- New or increased pain unrelieved with pain medications Pain associated with nausea and vomiting Pain associated with other symptoms QUESTIONS OR PROBLEMS-- Any questions or problems that you are unsure about Deep Vein Thrombosis Symptoms Call your doctor or nurse right away if you have any signs of blood clots such as -Tender, swollen or reddened areas anywhere in your leg. -Numbness or tingling in your lower leg or calf, or at the top of your leg or groin -Skin on you leg looks pale or blue or feels cold to touch -Chest pain or have trouble breathing -Fever or chills * Attachments The following attachments cannot be sent through Care Everywhere. * Atrial Fibrillation (Djiboutian) * Blood Thinners: How to Prevent Bleeding ([facility]) (Djiboutian) * clopidogrel (Djiboutian) * apixaban ([place]jiboutian) [facility]* Lilia Srivastava RN - 11/12/2023 8:43 PM EDT Deflated and emptied ostomy, minimal out put 25ml * EUSEBIO Hernandez - 11/12/2023 8:41 PM EDT This patient was appropriately risk stratified for observation level of care and placed on an observation protocol in our Clinical Decision Unit. The patient's intensity of service and severity of illness was appropriately aligned with observation level of care. Medical Decision Making Amount and/or Complexity of Data Reviewed Labs: ordered. Radiology: ordered. ECG/medicine tests: ordered. Risk OTC drugs. Prescription drug management. Decision regarding hospitalization. PMHx HTN, mood disorder, COREY, DM, GERD, CAD, stroke, R ICA stenosis s/p CEA. Presents with intermittent facial numbness around his mouth for 2 weeks lasting for approximately 10 minutes, episodes getting more frequent in the past 4 days. Also having hallucinations for the past 3 days and intermittent headaches. No fever, chills or urinary symptoms. No speech changes. Has had some tingling in his feet and hands. No weakness. No CP or SOB. Had hallucinations about a year ago when he had a urosepsis. Initially evaluated at OSH, CTH neg, CTA b/n with concerns for carotid artery dissection, infectious workup negative. Transferred. Labs WNL except for elevated blood glucose, ESR 20. UA without concerns for infection. CXR WNL. Neurovascular consulted. Patient placed in the CDU for symptom control, MRI brain, carotid ultrasound and Neurovascular re-evaluation. Carotid ultrasound with concerns for 70%-99% R ICA stenosis. MRI with punctate acute to subacute infarcts in the right frontal lobe and right occipital lobe. Vascular Surgery consulted, would like to do carotid stent vs repeat CEA. Pat ient admitted to Neurovascular. MRI BRAIN WITH AND WITHOUT CONTRAST Final Result IMPRESSION: Punctate acute to subacute infarcts in the right frontal lobe and right occipital lobe. Remote infarct in the medial right cerebellum. Multiple remote lacunar infarcts. CHEST PA AND LATERAL 2 VIEWS Final Result IMPRESSION: No acute cardiopulmonary disease Indeterminate age nondisplaced fracture of the proximal left humerus, I suggest further evaluation with dedicated radiograph. DUPLEX CAROTID BILATERAL Final Result Results for orders placed or performed during the hospital encounter of 11/12/23 [facility] 7 - ED Result Value Ref Range Sodium 139 135 - 145 mmol/L Potassium 3.7 3.5 - 5.0 mmol/L Chloride 100 98 - 108 mmol/L CO2 30 21 - 31 mmol/L Glucose 96 70 - 99 mg/dL BUN 10 7 - 25 mg/dL Creatinine 0.77 0.70 - 1.30 mg/dL Bun/Crea Ratio 13 Osmolality (Calculated) 289 278 - 305 mOsm/kg Anion Gap 13 7 - 17 mmol/L eGFR, CKD-EPI, Male >90 >=60 mL/min/1.73m2 CBC AND ELECTRONIC DIFF Result Value Ref Range WBC Count 6.24 3.73 - 10.10 K/uL RBC Count 4.94 4.38 - 5.83 M/uL Hemoglobin 13.4 13.4 - 16.8 g/dL Hematocrit 41.6 39.6 - 48.8 % Mean Cell Volume 84.2 79.0 - 94.5 fL Mean Cell Hgb 27.1 26.1 - 33.3 pg Mean Cell Hgb Conc 32.2 31.9 - 36.5 g/dL RBC Distribution 14.7 (H) 10.9 - 14.3 % Platelet Count 265 146 - 337 K/uL Mean Platelet Volume 9.7 8.7 - 12.3 fL DIFF STATUS Electronic Differential Segs + Bands Auto 66.5 % Immature Grans % 0.2 % Lymphocyte % Auto 20.7 % Monocyte % Auto 11.2 % Eosinophil % Auto 1.1 % Basophil % Auto 0.3 % Nucleated RBC 0.0 <=0.2 /100 WBC Segs + Bands,Absolute Auto 4.15 1.57 - 6.19 K/uL Immature Grans Absolute <0.04 <=0.07 K/uL Abs Lymph Auto 1.29 0.83 - 3.57 K/uL Abs Ford Auto 0.70 0.24 - 0.93 K/uL Abs Eos Auto 0.07 0.00 - 0.48 K/uL Abs Baso Auto <0.04 0.00 - 0.09 K/uL LIPID PANEL W CALCULATED LDL Result Value Ref Range Cholesterol 180 <200 mg/dL Triglycerides 188 (H) <150 mg/dL HDL Cholesterol 33 (L) >=40 mg/dL Calculated LDL Cholesterol 109 (H) 0 - 99 mg/dL Total Cholesterol/HDL Ratio 5.5 (H) <4.5 Non HDL Cholesterol 147 (H) <130 mg/dL HEPATIC FUNCTION PANEL Result Value Ref Range Albumin 4.0 3.5 - 5.0 g/dL Bilirubin Direct 0.1 <0.3 mg/dL Bilirubin Total 0.5 <1.5 mg/dL ALP 94 32 - 126 U/L ALT 17 10 - 52 U/L AST 28 10 - 39 U/L Total Protein 7.1 6.4 - 8.3 g/dL HEMOGLOBIN A1C Result Value Ref Range Hemoglobin A1C HPLC 7.8 (H) 4.7 - 5.6 % Estimated Average Glucose 177 mg/dL C REACTIVE PROTEIN Result Value Ref Range C Reactive Protein 6.55 <10.00 mg/L C REACTIVE PROTEIN Result Value Ref Range C Reactive Protein 7.90 <10.00 mg/L SEDIMENTATION RATE, AUTOMATED Result Value Ref Range ESR Westergren 20 (H) <20 mm/hr GLUCOSE POC Result Value Ref Range Glucose (POC Device) 117 (H) 70 - 99 mg/dL POC Sample Type CAPBL GLUCOSE POC Result Value Ref Range Glucose (POC Device) 281 (H) 70 - 99 mg/dL POC Sample Type CAPBL GLUCOSE POC Result Value Ref Range Glucose (POC Device) 211 (H) 70 - 99 mg/dL POC Sample Type CAPBL URINALYSIS REFLEX TO CULTURE PERFORMABLE Result Value Ref Range Color Yellow Yellow Appearance Urine Clear Clear Glucose Urine >=1000 mg/dL (A) Negative Ketones Urine 15 mg/dL = Small (A) Negative Specific [place] Urine 1.027 1.001 - 1.035 Blood Urine Negative Negative pH Urine 6.0 5.0 - 7.0 Protein Urine Trace (A) Negative Urobilinogen Urine 0.2 E.U./dL 0.2 E.U/dL, 1.0 E.U/dL Nitrites Urine Negative Negative Leukocyte Esterase Negative Negative RBC Urine 0-2 0 - 2 /HPF WBC Urine 0 - 5 0 - 5 /HPF Squamous/Epithelial Cells 0-2/hpf 0-2/hpf, 3-5/hpf = 1+ Bacteria ABSENT ABSENT Disposition: Admit The patient has NOT met appropriate clinical criteria to be discharged from this CDU observation protocol. As such, the patient has failed to be discharged from observation level of care and will require inpatient admission to provide sufficient stabilization and resources to ensure safe disposition. Clinical Impression: 1. Acute ischemic stroke 2. More than 50 percent stenosis of right internal carotid artery I saw and evaluated the patient with the attending, Dr. Thomson. Trixie Cole, CREDIT CONSULTANT-CLOUD DEVELOPER 11/12/232044 * Isabella Corral RN - 11/12/2023 7:55 AM EDT Received report and reviewed patient's chart. Plan of care discussed with EDOU Attending and Midlevel Provider. Plan: MRI brain, Carotid dopplers. This CM will remain available to assist with furtherpatient needs. Isabella Corral RN, [facility] Clinical Wire Straightening Machine Operator Emergency Department [phone] * Joselito Starks RN - 11/12/2023 4:33 AM EDT Pt had left facial numbness, around left side of mouth, for approximately 10 minutes then resolved.Nih is 0 at this time. * Dalton Mandujano MD - 11/12/2023 3:30 AM EDT Medical Decision Making Amount and/or Complexity of Data Reviewed Labs: ordered. ECG/medicine tests: ordered. On 11/12/2023 I saw and examined the patient. I discussed the history and examination with the resident and agree with the plan of care. In addition ED Attending Chief complaint: No chief complaint on file. Yony Vega is a 68 y.o. male with a PMH of CAD, DM, prior CVA, rectal cancer who presents to the ED as an OSH stroke transfer Patient endorses left upper extremity and facial numbness x weeks He was with his son who thought he was slurring his speech and presented to OSH He had a CT head and CTA which was negative for LVO or ICH There were concerns for right carotid dissection His case was discussed with tele stroke and he was [facility] for further evaluation ROS: Pertinent positives and negative are included in HPI. Past Medical History: Diagnosis Date Anxiety Arteriosclerosis of carotid artery CAD (coronary artery disease) Colostomy in place CVA (cerebral vascular accident) 2011 Diabetes mellitus GERD (gastroesophageal reflux disease) HLD (hyperlipidemia) HTN (hypertension) NSTEMI (non-ST elevated myocardial infarction) ALEJANDRO (obstructive sleep apnea) Osteoporosis Parastomal hernia Rectal cancer Past Surgical History: Procedure Laterality Date EYE SURGERY 2021 CORONARY STENT PLACEMENT 2015 HEART CATHETERIZATION 2015 CORONARY ARTERY BYPASS GRAFT 2009 ENDARTERECTOMY CAROTID SUBCLAVIAN VERTEBRAL 2009 HERNIA REPAIR Left 2005 inguinal OTHER SURGICAL 2005 graft- burn right hand HERNIA REPAIR 1998 umbilical OTHER SURGICAL 1992 fx right arm TONSILLECTOMY 1985 COLONOSCOPY DIAGNOSTIC LARGE BOWEL SURGERY BP 194/79 (BP Location: Left arm, BP Position: Lying) Pulse 82 Temp 97.8 F (36.6 C) Resp 16 SpO2 93% Smoking Status Never Pertinent Physical Exam findings: GENERAL: no acute distress HEAD: normocephalic EYES/EARS/NOSE/THROAT: pupils equal, extraocular muscles intact, no scleral icterus NECK: normal inspection RESPIRATORY: no respiratory distress, clear to auscultation bilaterally CARDIOVASCULAR: regular rate and rhythm, no murmurs, rubs or gallops ABDOMEN/: soft, non-tender, no masses, normal bowel sounds EXTREMITIES: non-tender, normal range of motion, no edema/swelling NEUROLOGIC: alert and oriented, no gross motor deficits, decreased sensation to left face but otherwise sensation symmetric, no extremity drift, no dysarthria, no aphasia, normal smile, no visual field cuts SKIN: warm, intact Results for orders placed or performed during the hospital encounter of 11/12/23 [facility] 7 - ED Result Value Ref Range Sodium 139 135 - 145 mmol/L Potassium 3.7 3.5 - 5.0 mmol/L Chloride 100 98 - 108 mmol/L CO2 30 21 - 31 mmol/L Glucose 96 70 - 99 mg/dL BUN 10 7 - 25 mg/dL Creatinine 0.77 0.70 - 1.30 mg/dL Bun/Crea Ratio 13 Osmolality (Calculated) 289 278 - 305 mOsm/kg Anion Gap 13 7 - 17 mmol/L eGFR, CKD-EPI, Male >90 >=60 mL/min/1.73m2 CBC AND ELECTRONIC DIFF Result Value Ref Range WBC Count 6.24 3.73 - 10.10 K/uL RBC Count 4.94 4.38 - 5.83 M/uL Hemoglobin 13.4 13.4 - 16.8 g/dL Hematocrit 41.6 39.6 - 48.8 % Mean Cell Volume 84.2 79.0 - 94.5 fL Mean Cell Hgb 27.1 26.1 - 33.3 pg Mean Cell Hgb Conc 32.2 31.9 - 36.5 g/dL RBC Distribution 14.7 (H) 10.9 - 14.3 % Platelet Count 265 146 - 337 K/uL Mean Platelet Volume 9.7 8.7 - 12.3 fL DIFF STATUS Electronic Differential Segs + Bands Auto 66.5 % Immature Grans % 0.2 % Lymphocyte % Auto 20.7 % Monocyte % Auto 11.2 % Eosinophil % Auto 1.1 % Basophil % Auto 0.3 % Nucleated RBC 0.0 <=0.2 /100 WBC Segs + Bands,Absolute Auto 4.15 1.57 - 6.19 K/uL Immature Grans Absolute <0.04 <=0.07 K/uL Abs Lymph Auto 1.29 0.83 - 3.57 K/uL Abs Ford Auto 0.70 0.24 - 0.93 K/uL Abs Eos Auto 0.07 0.00 - 0.48 K/uL Abs Baso Auto <0.04 0.00 - 0.09 K/uL HEPATIC FUNCTION PANEL Result Value Ref Range Albumin 4.0 3.5 - 5.0 g/dL Bilirubin Direct 0.1 <0.3 mg/dL Bilirubin Total 0.5 <1.5 mg/dL ALP 94 32 - 126 U/L ALT 17 10 - 52 U/L AST 28 10 - 39 U/L Total Protein 7.1 6.4 - 8.3 g/dL No orders to display Assessment and Plan Left sided numbness CVA vs TIA vs carotid artery dissection Vitals reviewed. Patient is hemodynamically stabe NIHSS 1 for face numbness that reoccurred for 10 min and then resolved EKG ordered but has not been completed Labs reviewed Patient is not hypoglycemic Electrolytes stable Case discussed with Neurovasc who is requesting obs placement for further neurovasc assessment ED obs team in agreement for placement Final impression: Left sided numbness, possible carotid artery dissection seen on CTA Disposition: Obs placement Dalton Mandujano MD 11/12/23904 * Carol Patrick RN - 11/12/2023 2:29 AM EDT Pt arrives by EMS from OSH for left facial weakness, WALLACE w/LKW of 11/09 @1999. Pt Per notes pt with recent dx of Rt carotid dissection and stenosis and Lt carotid occlusion. * Jordan Cardenas MD - 11/12/2023 2:28 AM EDT EMERGENCY DEPARTMENT CHIEF COMPLAINT Stroke Transfer HPI Yony Vega is a 68 y.o. male with PMHx of CAD, CVA, T2DM, GERD, HTN, HLD, ALEJANDRO, prior rectal cancer with ostomy in place who presents as a stroke transfer. Patient reports L facial and LUE numbness that has been intermittent for the past 3 weeks. He was with his son yesterday who also thought he had slurred speech, patient was taken to OSH for this. Stroke alert was called, CT and CTA obtained with c/f R carotid dissection. Transferred for further care. Patient reports no other focal neuro deficits, does feel generalized LE weakness at times but not currently. Afebrile without recent illness. No chest pain or dyspnea. No syncope. Normal PO intake, normal UOP and BM. REVIEW OF SYSTEMS Review of systems including constitutional, skin, HEENT, eyes, CV, respiratory, GI, , MSK, endocrine, neurologic, psychiatric, heme reviewed and negative except as noted above. PAST MEDICAL HISTORY Past Medical History: Diagnosis Date Anxiety Arteriosclerosis of carotid artery CAD (coronary artery disease) Colostomy in place CVA (cerebral vascular accident) 2011 Diabetes mellitus GERD (gastroesophageal reflux disease) HLD (hyperlipidemia) HTN (hypertension) NSTEMI (non-ST elevated myocardial infarction) ALEJANDRO (obstructive sleep apnea) Osteoporosis Parastomal hernia Rectal cancer SURGICAL HISTORY Past Surgical History: Procedure Laterality Date EYE SURGERY 2021 CORONARY STENT PLACEMENT 2015 HEART CATHETERIZATION 2015 CORONARY ARTERY BYPASS GRAFT 2009 ENDARTERECTOMY CAROTID SUBCLAVIAN VERTEBRAL 2009 HERNIA REPAIR Left 2005 inguinal OTHER SURGICAL 2005 graft- burn right hand HERNIA REPAIR 1998 umbilical OTHER SURGICAL 1992 fx right arm TONSILLECTOMY 1984 COLONOSCOPY DIAGNOSTIC LARGE BOWEL SURGERY CURRENT MEDICATIONS No current facility-administered medications for this encounter. Current Outpatient Medications Medication Sig Dispense Refill Ascorbic acid 500 MG tablet Take 1 tablet by mouth daily. Aspirin (Aspir-Low) [address] tablet Take 1 tablet by mouth daily. bisacodyl [address] Take all 4 tablets at 11am the day before surgery 4 tablet 0 carveDILOL 3.125 MG tablet Take 1 tablet by mouth 2 times daily with meals. chlorhexidine 4 % Liquid Apply 2 Applications topically As directed. 236 mL 0 Clopidogrel 75 MG tablet Take 1 tablet by mouth daily. DULoxetine [address] Particles capsule DR Take 1 capsule by mouth daily. Ergocalciferol 1.25 MG (69101 UT) capsule Take 1 capsule by mouth once a week. Gabapentin 300 MG capsule Take 1 capsule by mouth daily. insulin glargine (Semglee) 100 UNIT/ML Solution Pen-injector injection Inject 50 Units under the skin 2 times daily. Insulin Lispro 100 UNIT/ML vial Inject under the skin 3 times daily (take before meals). Lisinopril 10 MG tablet Take 1 tablet by mouth daily. (Patient not taking: Reported on 07/19/2023) magnesium oxide 400 MG tablet Take 1 tablet by mouth daily. metroNIDAZOLE 500 MG tablet Take 2 tablets (1000 mg) at 1pm, 2pm, and 9pm the day before your procedure. 6 tablet 0 Neomycin 500 MG tablet Take 2 tablets (1000 mg) at 1pm, 2pm, and 9pm the day before your procedure.6 tablet [address] omepraz[address] capsule Take 1 capsule by mouth daily. Polyethylene glycol 17 GM/SCOOP Powder powder 11 AM: Take entire contents over 2 hours as instructed. 255 g 0 Rosuvastatin 20 MG tablet Take 1 tablet by mouth daily. ROYAL JELLY PO Take by mouth daily. ALLERGIES No Known Allergies FAMILY HISTORY No family history on file. SOCIAL HISTORY Social History Socioeconomic History Marital status: Spouse name: Not on file Number of children: Not on file Years of education: Not on file Highest education level: Not on file Occupational History Not on file Tobacco Use Smoking status: Never Smokeless tobacco: Never Vaping Use Vaping status: Never Used Substance and Sexual Activity Alcohol use: Not Currently Comment: Wine rarely Drug use: Never Sexual activity: Not on file Other Topics Concern Not on file Social History Narrative Not on file Social Determinants of Health Financial Resource Strain: Low Risk (05/27/2020) Received from [facility] Overall Financial Resource Strain (CARDIA) Difficulty of Paying Living Expenses: Not hard at all Food Insecurity: No Food Insecurity (05/27/2020) Received from [facility] Hunger Vital Sign Worried About Running Out of Food in the Last Year: Never true Ran Out of Food in the Last Year: Never true Transportation Needs: No Transportation Needs (05/27/2020) Received from [facility] - Transportation Lack of Transportation (Medical): No Lack of Transportation (Non-Medical): No Physical Activity: Not on file Stress: Not on file Social Connections: Not on file Intimate Partner Violence: Not on file Housing Stability: Not on file PHYSICAL EXAM BP 185/82 Pulse 75 Temp 97.8 F (36.6 C) Resp 15 SpO2 95% Smoking Status Never Physical Exam Constitutional: oriented to person, place, and time. Appears well-developed and well-nourished. Head: Normocephalic and atraumatic. Right Ear: External ear normal. Left Ear: External ear normal. Oropharynx clear with moist mucous membranes. Eyes: Conjunctivae and EOM are normal. Pupils are equal, round, and reactive to light. Right eye exhibits no discharge. Left eye exhibits no discharge. Neck: Normal range of motion. Neck supple. No tracheal deviation present. Cardiovascular: Normal rate, regular rhythm, normal heart sounds and intact distal pulses. Pulmonary/Chest: Effort normal and breath sounds normal. No stridor. No respiratory distress. No wheezes. No rales. Abdominal: Soft. Bowel sounds are normal. No distension. There is no tenderness. There is no rebound and no guarding. Ostomy in place without erythema or induration at site Musculoskeletal: Normal range of motion. No lower extremity edema. Radial pulse 2+ bilat. Neurological: Alert and oriented to person, place, and time. CN II-XII intact. Strength 5/5 and sensation intact in all extremities. Normal gait. Skin: Skin is warm and dry. Capillary refill takes less than 2 seconds. No rash noted. Psychiatric: Normal mood and affect. Behavior is normal. Judgment and thought content normal. Nursing note and vitals reviewed. Assessment and Plan: Yony Vega is a 68 y.o. male who presents as a stroke transfer. Differential diagnosis includes but not limited to: Carotid dissection, CVA, TIA, Seizure, Migraine Medical Decision Making Patient is hemodynamically stable and normothermic on presentation. He has no focal neurologic deficits currently but has had intermittent LUE and L facial numbness. CT and CTA without acute event but does have small R Carotid Dissection. Patient was evaluated by [facility] team who recommend MRI brain. Plan for OBS. Amount and/or Complexity of Data Reviewed Labs: ordered. Radiology: ordered. ECG/medicine tests: ordered. Risk OTC drugs. Prescription drug management. Disposition: ED Observation This patient was discussed with the attending physician who was in the immediate care area during the evaluation and decision making process. This note dictated using UniYu voice recognition software. Attempts at proofreading were made, but errors may occasionally still occur. Jordan Cardenas MD Resident 11/12/23 0512 [facility] Discharge summary Author Kenzie Britton [facility] 2023 11:55pm Note Date/Time 2023 3:27 pm [facility] Medical Records Department [address] [place] [address] Emergency Department Summary 11/11/23 MR#: [id number] Acct: [id number] Name: YONY VEGA Rep #:[id number] : 1955 67 From: Kenzie Nolasco PCP: Dr. Kendy Modi MD Status:REG ER Location: ED HPI History of Present Illness Chief Complaint: Neuro S/Sx Informant: patient and spouse/S.O. Narrative Narrative: 67-year-old male presenting to the emergency room with neurologic symptoms. Patient states that he has had 2 prior strokes that have left him with left arm and left leg weakness that is pretty much resolved and persistent numbness. Last evening around 2000 hours he noticed that he started seeing a small boy to the right of him that was not there. He also noticed a small growth of the lefthim. These are intermittent. They do not speak. He also noticed a wavy line in the periphery of his left eye vision. He felt that the left side of his facewas numb persisted around the perioral region. The perioral symptoms are intermittent but the left face is persistent. This morning he states his tonguedid not feel like it was working right and his son felt he had slurred speech. Several days ago he had a fall in which she scraped his back but does not believe he sustained any other injuries. states that he has had these hallucinations like in the past with a UTI. He is on aspirin and Plavix following heart surgery in 2008 and had a stroke in 2009 while off Plavix. He denies any fevers. He notes a headache for 2 days. The patient notes that since his strokes he has had intermittent episodes where he gets his legs weak and he falls. He feels that that is happening more frequently today and opted not to walked into the emergency department. Looking into his prior imaging 2008 MRA/MRI showed: Recent but not acute infarct in the inferior medial right cerebellar hemisphere. 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 [facility] Medical History Anxiety disorder Arthritis 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 Cancer Cardiology follow-up encounter Carotid artery disease Colorectal cancer CPAP (continuous positive airway pressure) dependence CVA (cerebral vascular accident) Depression Diabetic neuropathy Dietary restriction Dyslipidemia Dysphagia Essential hypertension Gastric reflux GERD (gastroesophageal reflux disease) High cholesterol History of echocardiogram History of heart attack History of pain when walking History of stress test HTN (hypertension) Injury of back Injury of head and neck 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 Leg cramps Loss of hearing Non-smoker Obstructive sleep apnea Orthostatic hypotension ALEJANDRO (obstructive sleep apnea) Peripheral vascular occlusive disease Restless legs Restrictive lung disease Shortness of breath on exertion Syncope Type 2 diabetes mellitus Walker as ambulation aid Wears glasses Home Medications aspirin 81 mg chewable tablet 81 mg PO DAILY heart health 03/20/16 [History Last Taken 03/10/23] omeprazole 40 mg capsule,delayed release 40 mg PO DAILY gerd 01/09/20 [History Last Taken 03/10/23] fluticasone propionate 50 mcg/actuation nasal spray,suspension (Flonase Allergy Relief) 1 spray intranasal DAILY PRN allergies 12/17/20 [History Last Taken 09/22/21] gabapentin 300 mg capsule 300 mg PO DAILY neuropathy 12/17/20 [History Last Taken 03/10/23] insulin lispro 100 unit/mL subcutaneous pen (Humalog KwikPen (U-100) Insulin) See Rx Instructions subcut .COMPLEX diabetes 09/26/21 [History Last Taken 03/10/23] nitroglycerin 0.4 mg sublingual tablet 0.4 mg sublingual Q5M PRN chest pain #25 tabs 10/15/21 [Rx Last Taken Unknown] rosuvastatin 20 mg tablet 20 mg PO QHS cholesterol #90 tabs 02/13/23 [Rx Last Taken 03/10/23] peg 400-propylene glycol (PF) 0.4 %-0.3 % eye drops in a dropperette (Lubricant Eye (PG-PEG 400) (PF)) 1 drp EACH EYE DAILY PRN dry eye(s) 03/10/23 [History Last Taken Unknown] duloxetine 60 mg capsule,delayed release 30 mg (1/2 x 60 mg) PO DAILY depression#30 caps 03/12/23 [Rx Last Taken 03/10/23] carvedilol 6.25 mg tablet 6.25 mg PO BID #180 tabs 09/28/23 [Rx Last Taken Unknown] clopidogrel 75 mg tablet 75 mg PO DAILY blood thinner #90 tabs 10/10/23 [Rx Last Taken Unknown] insulin glargine-yfgn 100 unit/mL (3 mL) subcutaneous pen (Semglee (insulin glargine-yfgn) Pen) 50 unit subcut BID 11/11/23 [History Last Taken Unknown] Allergy/AdvReac Type Severity Reaction Status Date / Time No Known Allergies Allergy Verified 11/11/23 14:50 Family History Father CAD (coronary artery disease) Hypertension Cancer leukemia Diabetes Heart disease High cholesterol Mother CVA (cerebral vascular accident) Diabetes Breast cancer Brother Diabetes Surgical History Excision Max.Zygoma Face Tumor H/O coronary artery bypass surgery (05/30/08) History of bilateral cataract extraction History of coronary artery stent placement (01/02/15) History of eye surgery History of herniorrhaphy History of left heart catheterization (LHC) (~01/22/15) History of right and left heart catheterization (LHC) (~12/25/14) History of right-sided carotid endarterectomy History of tonsillectomy PTCA Left Anterior Tibial and Paroneal Artery Social History Smoking Status: Never smoker alcohol intake: never substance use type: does not use caffeine: Yes what type of physical activity do you participate in: none ROS ROS ED Constitutional Constitutional ED: Reports weakness; Denies chills, fever(s) or weight loss Eyes Eyes: Reports change in vision and other Details: Wavy line left eye lateral peripheral ; Denies blurry vision or diplopia ENT ENT ED: Denies ear pain, rhinorrhea or sore throat Cardiovascular Cardiovascular: Denies chest pain, orthopnea, palpitations or racing heartbeat Respiratory/Chest Respiratory/Chest: Denies cough, dyspnea or orthopnea Gastrointestinal Gastrointestinal: Denies abdominal pain, diarrhea, nausea or vomiting Genitourinary Genitourinary ED: Denies dysuria, hematuria or urinary frequency Musculoskeletal Musculoskeletal: Denies arthralgias or myalgias Integumentary Reports other Details: Mid to low back abrasions ; Denies abscess or rash Neurologic Neurologic: Reports headache(s) and other Details: Chronic left arm and leg weakness. Chronic left arm and leg numbness. Left facial and perioral numbness. Tongue not working (intermittent) causing slurred speech (not present currently) Psychiatric Psychiatric: Reports other Details: Visual hallucinations ; Denies anxiety, depression, suicidal ideation or suicidal thoughts Endocrine Endocrinology: Denies polydipsia, polyphagia or polyuria Allergic/Immunologic Allergic/Immunologic ED: Denies mouth swelling, tongue swelling or urticaria EXAM Physical Exam Const Vital Signs: 11/11/23 14:50 11/11/23 15:27 11/11/23 15:19 Temperature 97.1 F L Temperature Source Temporal Pulse Rate 69 68 Respiratory Rate 16 14 Blood Pressure 168/77 H 157/74 H Blood Pressure Mean 107 101 Pulse Ox 96 96 Oxygen Delivery Method Room Air Room Air Room Air 11/11/23 15:37 11/11/23 15:49 11/11/23 16:19 Temperature Temperature Source Pulse Rate 67 65 73 Respiratory Rate 13 17 14 Blood Pressure 182/77 H 158/95 H 182/77 H Blood Pressure Mean 112 116 112 Pulse Ox 97 99 97 Oxygen Delivery Method Room Air Room Air Room Air 11/11/23 16:30 11/11/23 17:22 11/11/23 15:54 Temperature 97.6 F L Temperature Source Pulse Rate 73 72 Respiratory Rate 15 16 16 Blood Pressure 176/100 H 190/88 H Blood Pressure Mean 125 122 Pulse Ox 96 98 Oxygen Delivery Method Room Air 11/11/23 16:20 11/11/23 17:00 11/11/23 18:00 Temperature Temperature Source Pulse Rate 72 71 Respiratory Rate 11 L 13 16 Blood Pressure 180/93 H 171/86 H Blood Pressure Mean 119 114 Pulse Ox 98 96 96 Oxygen Delivery Method Room Air 11/11/23 19:00 11/11/23 19:45 Temperature Temperature Source Pulse Rate 69 69 Respiratory Rate 16 16 Blood Pressure 158/85 H 189/91 H Blood Pressure Mean 109 123 Pulse Ox 97 97 Oxygen Delivery Method Room Air Room Air Positive well nourished and well developed General Appearance ED: well developed HEENT Reports normocephalic, head/scalp atraumatic and moist mucous membranes Eyes PERRL and EOMs intact bilaterally Neck no lymphadenopathy, supple and no JVD Resp normal respiratory effort and clear to auscultation bilaterally Cardio regular rate, regular rhythm and no murmurs GI normal to inspection, nondistended, normoactive bowel sounds and non-tender Palpation: soft Back/Spine no CVA tenderness and normal ROM Back/Spine Narrative: There are superficial abrasions to the mid to low back mostly on the right paraspinal region. No evidence of secondary infection Extremity Extremity Narrative: Normal [id number] and [id number] exam General Extremety ED: Negative for edema General Extremity: Negative for edema Neuro oriented x3 and CN's II-XII intact bilaterally [place] Coma Scale: document GCS findings Spontaneous Obeys Commands Oriented 15 Sensorium / Orientation: alert Speech: speech normal Motor Exam: strength 5/5 throughout Psych mental status grossly normal Mood & Affect: Negative for depressed or tearful Skin no rashes or lesions noted and no wounds NIHSS NIHSS Initial: 1a Level of Consciousness: 0 1b LOC Questions (Score 2 if aphasic/stupor): 0 1c LOC Commands (Only score 1st attempt): 0 2 Best Gaze (If aphasic, use reflexive mvmts.): 0 3 Visual: 0 4 Facial Palsy: 0 5 Motor Arm Right (UN = amputation/fusion): 0 5 Motor Arm Left: 0 6 Motor Leg Right: 0 6 Motor Leg Left: 0 7 Limb ataxia (Only + if out of proportion): 0 8 Sensory (Aphasia/stupor=0 or 1, coma=2): 2 9 Best Language: 0 10 Dysarthria (mute, coma=2, intubated=UN): 0 11 Extinction and Inattention (only scored if +): 0 Total Score: 2 MDM MDM MDM Narrative Medical decision making narrative: Differential diagnosis includes intracranial hemorrhage/hematoma, acute stroke, dissection, metabolic derangement, psychologic pathology, cardiogenic dysfunction. Because the patient has had persistent left facial numbness since 2000 hours last night a stroke team was called. Noncontrasted head CT does not show intracranial hemorrhage or obvious acute stroke. I spoke with stroke neurology at [facility] Dr. Gaffney at 1552 hrs. CTA results were called to me at approximately 1601 hrs. I again spoke with [facility] stroke neurology at 1615 hrs. Basic blood work shows white count of 5.5 hemoglobin 12.3 platelet count of 246. PTT 49.2 and INR is 1.1. Sodium 138 potassium 3.2. Glucose of 155 liver enzymes are normal. Troponin 22. Urinalysis is normal. My independent interpretation of the chest x-ray is no acute process. At this point patient does not appear to be tPA candidate. Per [facility] neurology team the carotid dissection does not appear at this time need to be intervened upon and they would recommend a neurology consult in the morning. I will speak with the hospitalist regarding admission. I spoke with Dr. Robertson. He is uncomfortable keeping the patient here with the findings of the right carotid. I again spoke with [facility]. I am waiting on return information about possible transfer. I did have her hospitalist on duty tonight speak with [facility] neurology. Patient will be an ED to ED transfer to [facility]. History & Record Review Discussion w/independent historian: Patient and Significant other Additional record(s) reviewed:: Prior inpatient record, Prior ED visit and Priorlabs Lab Data Attestation: I reviewed the patient's lab results. Labs: Laboratory Results - last 24 hr 11/11/23 11/11/23 11/11/23 15:21 15:25 16:20 WBC 5.5 RBC 4.46 L Hgb 12.3 L Hct 38.1 L MCV 85.4 MCH 27.6 MCHC 32.3 RDW Std Deviation 45.2 H RDW Coeff of Maia 14.6 Plt Count 246 MPV 9.5 Immature Gran % (Auto) 0.200 Neut % (Auto) 67.8 Lymph % (Auto) 19.9 Ford % (Auto) 10.8 H Eos % (Auto) 0.9 Baso % (Auto) 0.4 Absolute Neuts (auto) 3.8 Absolute Lymphs (auto) 1.10 Nucleated RBC % 0 PT 13.7 INR 1.1 APTT 49.2 H Sodium 138 Potassium 3.2 L Chloride 99 Carbon Dioxide 32.0 Anion Gap 7 BUN 15 Creatinine 0.99 Estim Creat Clear Calc 69.55 Est GFR (MDRD) Af Amer 98 Est GFR (MDRD) Non-Af 81 BUN/Creatinine Ratio 15.2 Glucose 155 H Calcium 8.1 L Total Bilirubin 0.30 Direct Bilirubin 0.10 AST 29 ALT 29 Alkaline Phosphatase 94 Troponin I High Sens 22 Total Protein 6.9 Albumin 3.4 Globulin 3.5 Urine Color Yellow Urine Clarity Clear Urine pH 7.0 Ur Specific [place] 1.010 Urine Protein 15 H Urine Glucose (UA) Normal Urine Ketones Negative Urine Occult Blood Negative Urine Nitrite Negative Urine Bilirubin Negative Urine Urobilinogen Normal Ur Leukocyte Esterase Negative Urine RBC 0 SEEN Urine WBC 0 SEEN Ur Squamous Epith Cells 0 SEEN Urine Bacteria 0 SEEN Urine Mucus 0 SEEN POC Glucose 153 H Radiography Diagnostic Testing: Clinical Impression(s) from Imaging Studies Brain CT 11/11/23 15:19 IMPRESSION: There are no acute findings. Electronically Signed: Alexis Madrid MD at 15:34 EDT , ADDENDUM: 11/11/23 1542 IMPRESSION: There are no acute findings. N.B. : The above Results were Read Back by Alexis Madrid MD to Kenzie Britton DO, and understanding confirmed on 2023 15:35:05 (ET). Electronically Signed: Alexis Madrid MD at 15:34 EDT , Head/Neck CTA 11/11/23 15:20 IMPRESSION: There is mild atherosclerotic plaque formation of the origin of the right and left internal carotid artery with less than 50% cross sectional diameter stenosis. ALL ABOVE CRITERIA BY NASCET. There is a short dissection of the right common carotid bulb extending to the proximal right ICA and proximal right ECA. No stenosis. ALL ABOVE CRITERIA BY NASCET. Electronically Signed: Alexis Madrid MD at 16:00 EDT , ADDENDUM: 11/11/23 1610 IMPRESSION: There is mild atherosclerotic plaque formation of the origin of the right and left internal carotid artery with less than 50% cross sectional diameter stenosis. ALL ABOVE CRITERIA BY NASCET. There is a short dissection of the right common carotid bulb extending to the proximal right ICA and proximal right ECA. No stenosis. ALL ABOVE CRITERIA BY NASCET. N.B. : The above Results were Read Back by Alexis Madrid MD to Kenzie Britton DO, and understanding confirmed on 2023 16:03:39 (ET). Electronically Signed: Alexis Madrid MD at 16:00 EDT , ADDENDUM: 11/11/23 1611 IMPRESSION: undefined Chest X-Ray 11/11/23 15:55 IMPRESSION: There are no acute findings. Electronically Signed: Alexis Madrid MD at 16:17 EDT , EKG Initial EKG: Attestation: I personally reviewed and interpreted this EKG as follows: Comments: Normal sinus rhythm ventricular rate of [address] abnormalities noted anterolateral. These do appear new since March 2023. Management Discussion w/another healthcare provider: Hospitalist (Dr. Robertson), Manager Professional Development ([facility] (Dr. Navarro)) and Radiologist (Dr. Márquez) Discharge Plan Triage Chief Complaint: Neuro S/Sx ED Provider: Kenzie Britton Dx/Rx/DC Orders Clinical Impression: Type 2 diabetes mellitus, Carotid artery dissection, Hallucination, visual, Left facial numbness, H/O coronary artery bypass surgery, HTN (hypertension), Acute hypokalemia Prescriptions: No Action gabapentin 300 mg capsule 300 mg PO DAILY fluticasone propionate [Flonase Allergy Relief] 50 mcg/actuation spray,suspension 1 spray intranasal DAILY PRN (Reason: allergies) Rx Instructions: administer into each nostril nitroglycerin 0.4 mg tablet, sublingual 0.4 mg sublingual Q5M PRN (Reason: chest pain) Qty: 25 3RF Rx Instructions: do not exceed 3 doses per episode aspirin 81 MG tablet,chewable 81 mg PO DAILY Patient Comments: heart health omeprazole 40 MG capsule,delayed release(DR/EC) 40 mg PO DAILY insulin lispro [Humalog KwikPen Insulin] 100 unit/mL insulin pen See Rx Instructions SC .COMPLEX Rx Instructions: Take 17 units each meal plus sliding scale up to 65 units daily Lubricant Eye (PG-PEG 400)(PF) 0.4-0.3 % dropperette 1 drp EACH EYE DAILY PRN (Reason: dry eye(s)) duloxetine 60 MG capsule,delayed release(DR/EC) 30 mg PO DAILY Qty: 30 1RF Patient Comments: antidepressant insulin glargine-yfgn [Semglee(insulin glarg-yfgn)Pen] 100 unit/mL (3 mL) insulin pen 50 unit subcut BID rosuvastatin 20 mg tablet 20 mg PO QHS Qty: 90 3RF carvedilol 6.25 mg tablet 6.25 mg PO BID Qty: 180 3RF Rx Instructions: must administer with a meal/food clopidogrel 75 mg tablet 75 mg PO DAILY Qty: 90 3RF Primary Care Provider: Kendy Modi Referrals: Kendy Modi MD [Primary Care Provider] - Disposition Disposition: Acute Care Hospital Discharge Location: [facility] [place] What to do if you have Problems For any increased pain, shortness of breath, bleeding, nausea or vomiting, chestpain, or any unexpected problems, contact your Primary Care Provider. Call [facility] ([phone]) or report to the closest Emergency Room. Call 911 if necessary. 04/06/24 0147 <Electronically signed by Kenzie Britton DO> Cosigner Signature (if applicable): CC: Dr. Kendy Modi MD ~ Signed [facility] Work Phone: 1(516) 771-459412-13-2023 History of Present illness Narrative* Angeli Zarate, DO - 07/19/2023 11:30 AM EST Chief Complaint Patient presents with Follow-up Follow up visit, does have soreness and bleeding. He does get blisters that form, he thinks it could be from friction. History of Present Illness Yony Vega is a 67 y.o. male presents with a history of Referred by Kellee Gongora/PCP Dr. Kendy Modi for colostomy prolapse. Patient was recently seen by Dr. Galarza 05/11/2022 for robotic APR with LPLND on 05/26/20 for rectalcancer [id number] s/p chemoradiation 08/13/2019, completed ELMA 02/24/2020, was [...] leakage from the stoma bag, tries to putstoma paste and tape around the area. Empties [...] OTHER SURGICAL 1992 fx right arm TONSILLECTOMY 1984 COLONOSCOPY DIAGNOSTIC [...] daily., Disp: , Rfl: Ergocalciferol 1.25 MG (14124 UT) capsule, Take 1 capsule by mouth [...] 137/61 Pulse 79 Ht 1.702 m (5' 7) Wt 67.1 kg (148 lb) BMI 23.18 [...] Kellee Gongora/PCP Dr. Kendy Modi for colostomy prolapse. Patient followed by Dr. Galarza 05/11/2022 for robotic APR with LPLND on 05/26/20 for rectal cancer [id number] s/p chemoradiation 08/13/2019, completed ELMA 02/24/2020, was found to have colostomy prolapse at that time with plans for possible stoma revision after meeting with stoma therapy teamwith history of previous hernia repair with recurrence and now peristomal hernia and prolapse. -We discussed thoroughly the preoperative preparation, technical conduct, risks/benefits/alternatives, expected hospital recovery, and expected postoperative course, laparoscopic possible open colostomy revision with colostomy prolapse repair, possible reciting. This included but is not limited to:infection, bleeding, need for reoperation, life threatening complications and even . The patient had an opportunity to ask and have all questions answered. The patient wishes to proceed, signed consent in clinic, and will schedule in the near future. -plan for combined case with abdominal reconstruction team -discussed with the patient ostomy prolapse repair with possible peristomal hernia repair, may needassistance from abdominal reconstruction team, may need reciting of stoma. Referral placed -OPAC, ERAS -schedule surgery after patient seen by General Surgery for peristomal hernia repair with recurrence of abdominal hernia and stoma prolapse repair Counseling and/or coordination of care was more than 50% of the [id number] encounter with this patient. Total visit time was 20 minutes including documentation, care coordination, order placement, discussing treatment options and answering questions. Angeli Zarate DO Management Trainee Program Stores Pediatric and Adult Colorectal Surgery * Stefanisteffi Reed, CREDIT CONSULTANT-CLOUD DEVELOPER - 07/19/2023 11:30 AM EST COLORECTAL SURGERY CLINIC NOTE BRIEF HISTORY: Patient was recently seen by Dr. Galarza 05/11/2022 for robotic APR with LPLND on 05/26/20 for rectal cancer [id number] s/p chemoradiation 08/13/2019, completed ELMA 02/24/2020, was [...] Can reduce his prolapsed stoma while laying flat,when he stands it immediately prolapses. Has mild discomfort when bending. Has leaks from the appliance a few times a week, can sometimes get 4 days without having to change the appliance. Had difficulties using an ostomy belt in the past. O: Physical Exam: Vitals: 07/19/23 1134 Weight: 67.1 kg (148 lb) Height: 1.702 m (5' 7) Body mass index is 23.18 kg/m . [...] Department of Surgery Division of Colorectal Surgery * Banadr George RN - 07/19/2023 11:30 AM EST Patient's surgery warrants CERAS bowel prep. CERAS [...] to the patient's satisfaction. documented in this encounterU [facility] Instructions* Patient Instructions* Bandar George RN - 07/19/2023 11:30 AM EST Pre-Operative Bowel Preparation [facility] 2017 A bowel prep is done to prepare [...] Polyethylene Glycol (Miralax) powder into a large 64-ouncebottle of sports drink like Gatorade or PowerAid that is not red, orange, or purple in color. Lemon-minto is preferred. You may need to pour out a cup of the drink from the bottle into a glass to makeroom before pouring the powder into the bottle. [...] the neck down. Pay special attention to thearea where the surgery will be. Leave the [...] Preoperative Nutrition drink supplied by your doctor ordoctor s office. If you are to take your morning medicines, take with small sips of water only. Bring all medicines you usually take (in the original containers) to the hospital with you. Follow any other instructions you were given to prepare for your surgery. If you have any questions, call your surgeon s office. [facility]23 Miscellaneous Notes* Telephone Encounter - Jazmine Pang LPN - 07/03/2023 3:23 PM EST Please send short Rx to local pharmacy. Jazmine Pang LPN documented [facility]23 Miscellaneous Notes* Telephone Encounter - Jazmine Pang LPN - 06/26/2023 7:43 AM EST This was discontinued 06/21/2023 by Everardo. Jazmine Pang LPN documented in this encounterSalem [facility]11-15-2023 History of Present illness Narrative* Everardo Yusuf APRN.CLOUD DEVELOPER - 06/21/2023 2:05 PM EST Chief Complaint Patient presents with: Established Patient HPI: Isaias Vega is a 67 year old male who presents here today for follow up rectal cancer. Per Dr. 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 Biomarkers: Mismatch repair ICH: MLH-1 (M1) positive MSH2 (25D12) positive MSH6 (44) positive PMS2 (MBG6030) positive Result of Microsatellite Instability Study -Negative [...] CEA and b/l leg angioplasty. Presented [facility] on 05/[facility]2019 with an episode of syncope. He was orthostaticon presentation and had a hemoglobin of 10 [...] blood cell transfusion. [facility] and underwent evaluation by Dr. Galarza on 05/15/2019. Flexible sigmoidoscopy revealed a large fungating mass on the posterior aspect of the rectum extending along the left side to the anterior margin. It was fixated and extending into the sphincter pastthe dentate line. MRI rectum 05/15/2019: RESULT: TUMOR [...] of the left arm. 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 His ambulation around the house is limited by his sciatica and his peripheral vascular disease. He prefers to use of a wheelchair when going to medical appointments). [place] well the remainder of that week but [...] viable soft tissue component, but with residual mucinouschange. Persistently enlarged bilateral internal iliac lymph nodes, [...] in-situ hybridization tests have been determined by [facility] [place] ([facility]) in a manner consistent with CLIA requirements. One or more of these tests have not been cleared or approved by the FDA. [facility] is regulated under CLIA as qualified to perform high-complexity testing. These tests are used for clinical purposes. They should not be regarded as investigational or for research. SYNOPTIC REPORT OF GRIGGS PATHOLOGIC FINDINGS SIGMOID, RECTUM AND ANUS: COLON [...] performed with attendance of rectal cancer multidisciplinary steam table attendant: Yes Pt. here today with his . Recent eye surgery. Appetite:Good. Wt. down 6# since 12/13/21 Energy level:Not good. It's hard to get up and [...] (Temporal) Resp 16 Ht 167.6 cm (5' 6) Wt 65.5 kg(144 lb 8 oz) SpO2 97% BMI 23.32 [...] 4.00 k/uL 0.79 (L) 1.07 0.97 (L) Ford% % 10.0 10.4 10.5 Abs Ford <0.87 k/uL 0.53 0.71 0.58 Eosin% % [...] cancer (HCC) - ICD9: 154.1, ICD10: C20 [id number] stage III invasive adenocarcinoma of the lower [...] necessary for today's visit. Everardo Yusuf APRN.ARTI * Qiana Harris RN - 06/21/2023 2:02 PM EST Isaias Vega is here for an appointment today with Everardo Yusuf APRN.CNP and experienced a fall during his clinical visit. The patient had witnessed fall. Location of fall: [facility] Brief Factual Description: Patient fell landing [...] completed Name of LIP Notified: Everardo Yusuf APRN.CLOUD DEVELOPER Additional Prevention Measures:placed Falling Man sign on door, instructed Patient to remain seated, escorted to/from bathroom, increased observations by caregiver, and door to room left opened documented in this encounterSalem [facility]11-09-2023 History of Present illness Narrative* Bozena Henley RT(R) - 06/15/2023 3:20 PM EST Radiology Service Progress Note DATE OF SERVICE: [...] creatinine assay has traceable calibration to isotope dilution- mass spectrometry. Refer to KDIGO guidelines for clinical interpretation. In patients with unstable renal function, e.g. those with acute kidney injury, the eGFRmay not accurately reflect actual GFR. eGFR- Date Value Ref Range Status 05/24/2021 >60 Final P.O.C.T. RESULTS: POC done: Yes, See Lab Tab June 15, 2023 TREATMENT: N/A PERIPHERAL IV DATA: Ambulatory: A peripheral IV was started in the Left antecubital site with a Angio cath: 22 gauge. RADIOLOGY DEPARTMENT: CT; Exam(s) Completed: Chest Abdomen Pelvis SIGNATURE: RT Kavon(R) PATIENT NAME: Isaias Vega DATE: June 15, 2023 TIME: 4:06 PM documented in this encounterSalem City Hospital10-20-2023 Miscellaneous Notes* Telephone Encounter - Melanie Rizvi - 05/26/2023 1:24 PM EDT Spoke with patient and scheduled. Melanie Rizvi * Telephone Encounter - Everardo Yusuf APRN.CNP - 05/26/2023 11:43 AM EDT Yes, CT chest/abd/pelvis/OV/CBC/CMP/CEA soon. Orders in. Thank you. Everardo Yusuf APRN.CLOUD DEVELOPER * Telephone Encounter - Kimberlyn Calabrese - 05/26/2023 10:48 AM EDT Patient called asking if he is to have any kind of follow up. Patient was in office 12/2021 documented in this encounterSalem City Hospital10-18-2023 History of Present illness Narrative* Angeli Zarate DO - 05/24/2023 10:00 AM EDT Chief Complaint Patient presents with New Patient Colostomy complication . History of Present Illness Yony Vega is a 67 y.o. male presents with a history of Referred by Kellee Gongora/PCP Dr. Kendy Modi for colostomy prolapse. Patient was recently seen by Dr. Galarza 05/11/2022 for robotic APR with LPLND on 05/26/20 for rectalcancer [id number] s/p chemoradiation 08/13/2019, completed ELMA 02/24/2020, was [...] leakage from the stoma bag, tries to putstoma paste and tape around the area. Empties [...] OTHER SURGICAL 1992 fx right arm TONSILLECTOMY 1984 COLONOSCOPY DIAGNOSTIC [...] Sitting) Pulse 82 Ht 1.702 m (5' 7) Wt 65.9 kg (145 lb 3.2 oz) [...] and thought content normal. Assessment and Plan Ynoy Vega is a 67 y.o. male presents with a history of Referred by Kellee Gongora/PCP Dr. Kendy Modi for colostomy prolapse. Patient followed by Dr. Galarza 05/11/2022 for robotic APR with LPLND on 05/26/20 for rectal cancer [id number] s/p chemoradiation 08/13/2019, completed ELMA 02/24/2020, was found to have colostomy prolapse at that time with plans for possible stoma revision after meeting with stoma therapy team. -CT scan to assess for associated hernia patient is getting his cancer surveillance scans with his local medical oncologist -patient to return to care when complete to discuss prolapse repair with possible peristomal herniarepair, may need assistance from abdominal reconstruction team, may need reciting of stoma. -patient may consider stoma therapy team for consultation if additional pouching assistance needed,patient declined at this time -All questions were answered, patient would like to trial conservative medical management/lifestyleadjustments since the hemorrhoid symptoms are intermittent Counseling and/or coordination of care was more than 50% of the [id number] encounter with this patient. Total visit time was 40 minutes including documentation, care coordination, review of [place] progress notes from 05/2022, CT abdomen 11/22/2021, 03/15/2022 MRI liver, discussing treatment options and answering questions. Angeli Zarate DO Management Trainee Program Stores Pediatric and Adult Colorectal Surgery documented in this encounterOSU [facility] Instructions* Patient Instructions* Vanessa Simon RN - 05/24/2023 10:00 AM EDT Call the office [phone] you have the CT scan done at [facility] so that we can geta copy of the report and the images before your next appointment with Dr Zarate in July documented in this encounterOSU [facility]08-06-2023 Discharge summary [facility] March 12, 2023 1:55pm Note Date/Time March 12, 2023 11: 50am [facility] Medical Records Department [address] [place] [address] Discharge Summary 03/12/23 1149 MR#: [id number] Acct: [id number] Name: YONY VEGA Rep #:[id number] : 1955 67 From: Catherine Barton MD PCP: Dr. Kendy Modi MD Status:ADM CRICKET Location: [place] [address] Providers Date of Admission: 03/10/23 Date of Discharge: 03/12/23 Primary Care Physician: Dr. Kendy Modi MD Reason For Visit: NEAR SYNCOPE Diagnosis Discharge Diagnosis (1) Near syncope: Status: Acute Code(s): R55 - Syncope and collapse (2) Orthostatic hypotension: Status: Acute Code(s): I95.1 - Orthostatic hypotension Plan #near syncope due to orthostatic hypotension * has no complaints today and feels much better * orthostatics were significantly positive. BP meds on hold * being hydrated gently with IVF * PT/OT on board. Fall precautions. * CT of the brain showed no acute intracranial pathology. * * #HYpertension * Meds held on admission due to orthostatic hypotension. Blood pressure this morning is 181/75. * On amlodipine, carvedilol and lisinopril at home * will resume carvedilol and continue holding amlodipine and lisinopril for now. * #History of CAD s/p CABG * has known of EF of 55% with stage II diastolic dysfunction and aortic sclerosis but no stenosis. * on aspirin, plavix and high intensity statin as well as carvedilol * #TYpe 2 diabetes mellitus * glucose is controlled. * on lantus. ISS. Accuchecks ACHS * #DVT prophylaxis: heparin Medications at Discharge Home Medications aspirin 81 mg chewable tablet 81 mg PO DAILY heart health 03/20/16 omeprazole 40 mg capsule,delayed release 40 mg PO DAILY gerd 01/09/20 fluticasone propionate 50 mcg/actuation nasal spray,suspension (Flonase Allergy Relief) 1 spray intranasal DAILY PRN allergies 12/17/20 gabapentin 300 mg capsule 300 mg PO DAILY neuropathy 12/17/20 insulin detemir U-100 100 unit/mL (3 mL) subcutaneous pen 50 unit subcut BID blood sugar 12/17/20 insulin lispro 100 unit/mL subcutaneous pen (Humalog KwikPen (U-100) Insulin) See Rx Instructions subcut .COMPLEX diabetes 09/26/21 nitroglycerin 0.4 mg sublingual tablet 0.4 mg sublingual Q5M PRN chest pain #25 tabs 10/15/21 carvedilol 3.125 mg tablet 3.125 mg PO BID heart #180 tabs 10/03/22 clopidogrel 75 mg tablet 75 mg PO DAILY blood thinner #90 tabs 10/10/22 rosuvastatin 20 mg tablet 20 mg PO QHS cholesterol #90 tabs 02/13/23 magnesium oxide 400 mg PO BID supplement 03/10/23 peg 400-propylene glycol (PF) 0.4 %-0.3 % eye drops in a dropperette (Lubricant Eye (PG-PEG 400) (PF)) 1 drp EACH EYE DAILY PRN dry eye(s) 03/10/23 duloxetine 60 mg capsule,delayed release 30 mg (1/2 x 60 mg) PO DAILY depression#30 caps 03/12/23 lisinopril 10 mg tablet 10 mg PO DAILY #30 tabs 03/12/23 Hospital Course Operations None Procedures None Summary of Care Provided Minutes Spent on Discharge: 50 Hospital Course: Patient is a 67-year-old male with a past medical history as outlined who came in through the ED on 03/10/2023 with a complaint of near syncope. He had gone to see his 1 dialysis for change of his stoma bag and dressing. He felt dizzy and lightheaded and had near syncope while today. He is of the same thing had happened on the morning of admission and fell and hit his head in the bathroom. He did not pass out that though. He was brought into the ED after he nearly passed out while seeing the wound nurse. Orthostatics were positive. Was also noted to be hypotensive with blood pressure going down to the 90s systolic EKG showed no acute ST changes. He was admitted and managed for near syncope due toorthostatic hypotension. His blood pressure medications were held and he was hydrated with IV fluids. He fe is orthostatics was also thought to be possibly due to diabetic neuropathy as well as patient being on duloxetine 60 mg daily.His BP meds were adjusted, and lisinopril increased to 10mg daily; carvedilol was maintained at 3.125mg bid and amlodipine was discontinued. His orthostatics did remain positive, though he became asymptomatic. He was counseled that he will need to be tapered off of duloxetine slowly on outpatientbasis by his PCP if his orthostatics persistently remained positive, and his dose was halved to 30 mg daily. He is to follow up with his PCP within 1-2 weeks. Patient seen and examined prior to discharge. He felt much better and had no complaints and wanted to be discharged home. Review of systems otherwise negative. Labs and vitals reviewed. Home medication reviewed and reconciled. Physical Exam Const alert and no apparent distress General Appearance: cooperative, comfortable, well kempt and well developed Orientation / Consciousness: awake HEENT normocephalic, head/scalp atraumatic, hearing grossly normal bilaterally, moist oral mucous membranes and oropharynx normal Mouth: oral and palatal mucosa normal Eyes PERRL and EOMs intact bilaterally Neck no lymphadenopathy, supple and no JVD Lymph Lymphatic: no lymphadenopathy noted and no lymphedema noted Resp normal respiratory effort, normal air movement, no retractions, no use of accessory muscles and clear to auscultation bilaterally Cardio regular rate, regular rhythm, S1 normal heart sound, S2 normal heart sound and no murmurs GI normal to inspection, nondistended, normoactive bowel sounds, soft to palpation,non-tender and non-distended Extremity normal to inspection, full ROM, normal capillary refill, no clubbing, cyanosis or edema and no calf tenderness General Extremity: no tenderness to palpation of joints or extremities Skin no rashes or lesions noted General Skin Exam: no breakdown and turgor normal Neuro oriented x3, CN's II-XII intact bilaterally, moves all extremities, no focal motor deficits, no sensory deficits noted and deep tendon reflexes 2+ bilaterally Sensorium / Orientation: awake and alert Coordination / Balance: [id number] test normal Motor Exam: strength 5/5 throughout Psych thought process normal, cooperative and affect normal Appearance: appropriate Weight / BMI Weight Weight: 154 lb 1.65 oz Body Mass Index (BMI) 24.1 ABG / Lab / Microbiology Data 03/12/23 04:41 03/12/23 04:41 Laboratory: Laboratory Results - last 24 hr 03/11/23 11:50: POC Glucose 235 H 03/11/23 16:27: POC Glucose 208 H 03/11/23 20:45: POC Glucose 206 H 03/12/23 04:41: WBC 4.3 L, RBC 4.60, Hgb 12.5 L, Hct 39.6 L, MCV 86.1, MCH 27.2,MCHC 31.6 L, RDW Std Deviation 43.8, RDW Coeff of Maia 14.1, Plt Count 237, MPV 9.4, Immature Gran % (Auto) 0.200, Neut % (Auto) 62.5, Lymph % (Auto) 22.8, Ford% (Auto) 12.2 H, Eos % (Auto) 2.1, Baso % (Auto) 0.2, Absolute Neuts (auto) 2.7,Absolute Lymphs (auto) 0.97, Nucleated RBC % 0, Sodium 137, Potassium 4.0, Chloride 102, Carbon Dioxide 30.0, Anion Gap 5, BUN 14, Creatinine 0.92, Estim Creat Clear Calc 74.84, Est GFR (MDRD) Af Amer 106, Est GFR (MDRD) Non-Af 88, BUN/Creatinine Ratio 15.2, Glucose 245 H, Calcium 9.0 03/12/23 08:06: POC Glucose 246 H 03/12/23 11:20: POC Glucose 303 H D/C Instructions Discharge Diet: Low fat / Low cholesterol Discharge Activity: Return to Normal Activity Weight Bearing Status: Weight bearing as tolerated Call your doctor if you observe: Fever of 101 or Higher, Shortness of breath, Dizziness, Swelling in the ankles, Chest pain and Increased palpitations (irregular heartbeat) Meaningful Use Info Meaningful Use Diagnoses (Choose all that apply): None applicable Discharge Plan Admission Admit Date/Time: 03/10/23 16:44 Primary Reason for Your Visit: orthostatic hypotension Attending Provider: Catherine Barton Primary Care Provider: Kendy Modi Consulting Providers: Matt Penny Instructions Patient Instructions: Orthostatic Hypotension, ED Hypotension, Orthostatic Additional Instructions / Restrictions: duloxetine needs to be tapered down due to its side effect of orthostatic hypotension. Dose cut down to 30mg daily. Discharge Orders/Prescriptions Prescriptions: New lisinopril 10 mg tablet 10 mg PO DAILY Qty: 30 2RF Continued gabapentin 300 mg capsule 300 mg PO DAILY fluticasone propionate [Flonase Allergy Relief] 50 mcg/actuation spray,suspension 1 spray intranasal DAILY PRN (Reason: allergies) Rx Instructions: administer into each nostril nitroglycerin 0.4 mg tablet, sublingual 0.4 mg sublingual Q5M PRN (Reason: chest pain) Qty: 25 3RF Rx Instructions: do not exceed 3 doses per episode aspirin 81 MG tablet,chewable 81 mg PO DAILY Patient Comments: heart [facility] insulin detemir U-100 100 unit/mL (3 mL) insulin pen 50 unit SC BID omeprazole 40 MG capsule,delayed release(DR/EC) 40 mg PO DAILY insulin lispro [Humalog KwikPen Insulin] 100 unit/mL insulin pen See Rx Instructions SC .COMPLEX Rx Instructions: Take 17 units each meal plus sliding scale up to 65 units daily magnesium oxide 400 mg magnesium tablet 400 mg PO BID Lubricant Eye (PG-PEG 400)(PF) 0.4-0.3 % dropperette 1 drp EACH EYE DAILY PRN (Reason: dry eye(s)) carvedilol 3.125 mg tablet 3.125 mg PO BID Qty: 180 3RF clopidogrel 75 mg tablet 75 mg PO DAILY Qty: 90 3RF rosuvastatin 20 mg tablet 20 mg PO QHS Qty: 90 3RF Changed duloxetine 60 MG capsule,delayed release(DR/EC) 30 mg PO DAILY Qty: 30 1RF Patient Comments: antidepressant Discontinued lisinopril 5 mg tablet 5 mg PO DAILY Qty: 90 3RF amlodipine [Norvasc] 5 mg tablet 5 mg PO DAILY Qty: 90 3RF Referrals / Follow Up: Kendy Modi MD [Primary Care Provider] - Within 1 Week Disposition Disposition (needs filled in before D/C Order can be placed): Home, Self Care Charges/Coding Visit Charges Inpatient E&M: 09783 Disch Hosp >30min 03/12/23 1355 <Electronically signed by Catherine Barton MD> Cosigner Signature (if applicable): CC: Dr. Kendy Modi MD; Dr. Catherine Barton MD~ Signed [facility] Work Phone: 1(871) 482-601308-06-2023 Discharge summary Author Catherine [facility] March 12, 2023 11:49am Note Date/Time March 12, 2023 11: 49am [facility] Medical Records Department [address] [place] [address] Instructions for Home/Discharge Instructions 03/12/23 1149 MR#: [id number] Acct: [id number] Name: YONY VEGA Rep #:[id number] : 1955 67 From: Catherine Barton MD PCP: Dr. Kendy Modi MD Status:ADM CRICKET Discharge Instructions Diet Discharge Diet: Low fat / Low cholesterol Activity Discharge Activity: Return to Normal Activity Weight Bearing Status: Weight bearing as tolerated Dressing / Incision Call your doctor if you observe: Fever of 101 or Higher, Shortness of breath, Dizziness, Swelling in the ankles, Chest pain and Increased palpitations (irregular heartbeat) Follow Up Care Test Results: Test results from this visit will be discussed in further detail at your follow- up appointment, if applicable. Discharge Plan Admission Admit Date/Time: 03/10/23 16:44 Primary Reason for Your Visit: orthostatic hypotension Attending Provider: Catherine Barton Primary Care Provider: Kendy Modi Consulting Providers: Matt Penny Instructions Patient Instructions: Orthostatic Hypotension, ED Hypotension, Orthostatic Additional Instructions / Restrictions: duloxetine needs to be tapered down due to its side effect of orthostatic hypotension. Dose cut down to 30mg daily. Discharge Orders/Prescriptions Prescriptions: New lisinopril 10 mg tablet 10 mg PO DAILY Qty: 30 2RF Continued gabapentin 300 mg capsule 300 mg PO DAILY fluticasone propionate [Flonase Allergy Relief] 50 mcg/actuation spray,suspension 1 spray intranasal DAILY PRN (Reason: allergies) Rx Instructions: administer into each nostril nitroglycerin 0.4 mg tablet, sublingual 0.4 mg sublingual Q5M PRN (Reason: chest pain) Qty: 25 3RF Rx Instructions: do not exceed 3 doses per episode aspirin 81 MG tablet,chewable 81 mg PO DAILY Patient Comments: heart health insulin detemir U-100 100 unit/mL (3 mL) insulin pen 50 unit SC BID omeprazole 40 MG capsule,delayed release(DR/EC) 40 mg PO DAILY insulin lispro [Humalog KwikPen Insulin] 100 unit/mL insulin pen See Rx Instructions SC .COMPLEX Rx Instructions: Take 17 units each meal plus sliding scale up to 65 units daily magnesium oxide 400 mg magnesium tablet 400 mg PO BID Lubricant Eye (PG-PEG 400)(PF) 0.4-0.3 % dropperette 1 drp EACH EYE DAILY PRN (Reason: dry eye(s)) carvedilol 3.125 mg tablet 3.125 mg PO BID Qty: 180 3RF clopidogrel 75 mg tablet 75 mg PO DAILY Qty: 90 3RF rosuvastatin 20 mg tablet 20 mg PO QHS Qty: 90 3RF Changed duloxetine 60 MG capsule,delayed release(DR/EC) 30 mg PO DAILY Qty: 30 1RF Patient Comments: antidepressant Discontinued lisinopril 5 mg tablet 5 mg PO DAILY Qty: 90 3RF amlodipine [Norvasc] 5 mg tablet 5 mg PO DAILY Qty: 90 3RF Referrals / Follow Up: Kendy Modi MD [Primary Care Provider] - Within 1 Week Disposition Disposition (needs filled in before D/C Order can be placed): Home, Self Care 03/12/23 1149<Electronically signed by Catherine Barton MD>Catherine Barton MD CC: Dr. Kendy Modi MD; Dr. Matt Penny MD ~ Signed [facility] Work Phone: [phone]) 581-897308-05-2023 Progress note Author [facility] March 11, 2023 1:45pm Note Date/Time March 11, 2023 10: 54am [facility] Medical Records Department [address] [place] [address] Progress Note 03/11/23 1041 MR#: [id number] Acct: [id number] Name: YONY VEGA Rep #:[id number] : 1955 67 From: Catherine Barton MD PCP: Dr. Kendy Modi MD Status:ADM CRICKET Location: [place] [address] Subjective Subjective Patient seen and examined. He had no active complaints and had an uneventful night. He denies any dizziness, lightheadedness, nausea, vomiting or any other symptoms. Review of systems is otherwise negative. Objective Data Objective Data Vital Signs: Vital Signs Temp Pulse Resp BP Pulse Ox O2 Del Method 98.1 F 85 18 181/75 H 96 Room Air 03/11/23 06:29 03/11/23 06:29 03/11/23 06:29 03/11/23 06:29 03/11/23 06:29 03/11/23 10:00 Oxygen Delivery Method Room Air Weight: 153 lb 7.068 oz Body Mass Index (BMI) 24.0 Intake & Output: Intake and Output for Last 24 Hours 03/09/23 03/10/23 03/11/23 23:59 23:59 23:59 Intake Total 1999 / 1999 1000 / 1000 Output Total 425 / 425 1200 / 1200 Balance 1575 / 1575 -200 / -200 Lab / Micro Data 03/11/23 04:45 03/11/23 04:45 Labs: Laboratory Results - last 24 hr 03/10/23 12:10: WBC 8.1, RBC 4.64, Hgb 13.0, Hct 40.6, MCV 87.5, MCH 28.0, MCHC 32.0, RDW Std Deviation 45.3 H, RDW Coeff of Maia 14.2, Plt Count 295, MPV 9.4, Immature Gran % (Auto) 0.500, Neut % (Auto) 79.4 H, Lymph % (Auto) 10.6 L, Ford % (Auto) 8.5, Eos % (Auto) 0.5, Baso % (Auto) 0.5, Absolute Neuts (auto) 6.4, Absolute Lymphs (auto) 0.86, Nucleated RBC % 0, Sodium 139, Potassium 4.3, Chloride 104, Carbon Dioxide 31.0, Anion Gap 4 L, BUN 20 H, Creatinine 1.16, Estim Creat Clear Calc 59.36, Est GFR (MDRD) Af Amer 81, Est GFR (MDRD) Non-Af 67, BUN/Creatinine Ratio 17.2, Glucose 141 H, Calcium 8.8, Phosphorus 4.9, Magnesium 1.8, Troponin I High Sens 12 03/10/23 14:22: Urine Color Yellow, Urine Clarity Clear, Urine pH 6.0, Ur Specific [place] 1.015, Urine Protein 15 H, Urine Glucose (UA) 50 H, Urine Ketones Negative, Urine Occult Blood Negative, Urine Nitrite Negative, Urine Bilirubin Negative, Urine Urobilinogen Normal, Ur Leukocyte Esterase Negative, Urine RBC 0 SEEN, Urine WBC 0 SEEN, Ur Squamous Epith Cells 0 SEEN, Urine Bacteria 0 SEEN, Urine Mucus 0 SEEN 03/10/23 18:25: POC Glucose 71 L 03/10/23 21:47: POC Glucose 187 H 03/11/23 04:45: WBC 5.4, RBC 4.46 L, Hgb 12.6 L, Hct 39.2 L, MCV 87.9, MCH 28.3,MCHC 32.1, RDW Std Deviation 45.1 H, RDW Coeff of Maia 13.9, Plt Count 253, MPV 9.6, Immature Gran % (Auto) 0.400, Neut % (Auto) 68.5, Lymph % (Auto) 18.7 L, Ford % (Auto) 9.6, Eos % (Auto) 2.4, Baso % (Auto) 0.4, Absolute Neuts (auto) 3.7, Absolute Lymphs (auto) 1.01, Nucleated RBC % 0, Sodium 139, Potassium 3.7, Chloride 103, Carbon Dioxide 30.0, Anion Gap 6, BUN 9, Creatinine 0.73, Estim Creat Clear Calc 94.32, Est GFR (MDRD) Af Amer 139, Est GFR (MDRD) Non-Af 115, BUN/Creatinine Ratio 12.4, Glucose 203 H, Calcium 8.5 03/11/23 06:27: POC Glucose 217 H Radiography Diagnostic Testing: Radiology Impression Brain CT 03/10/23 12:11 IMPRESSION: Chronic involutional changes of the brain. Stable lacunar infarcts involving both basal ganglia. Electronically Signed: Navdeep Gonzales MD at 12:48 EDT , Chest X-Ray 03/10/23 12:31 IMPRESSION: Cardiomegaly, sternotomy wires, aortic tortuosity and mild hyperinflation. No active or acute cardiopulmonary disease. Electronically Signed: Amilcar Siddiqui MD at 12:44 EDT , Physical Exam Const alert and no apparent distress General Appearance: cooperative and well developed HEENT normocephalic, head/scalp atraumatic and oropharynx normal Eyes PERRL and EOMs intact bilaterally Neck no lymphadenopathy, supple and no JVD Lymph Lymphatic: no lymphadenopathy noted and no lymphedema noted Resp normal respiratory effort, normal air movement and clear to auscultation bilaterally Cardio regular rate, regular rhythm, S1 normal heart sound, S2 normal heart sound and no murmurs GI normal to inspection, nondistended, normoactive bowel sounds, soft to palpation,non-tender and non-distended Extremity normal capillary refill, no clubbing, cyanosis or edema and no calf tenderness General Extremity: no tenderness to palpation of joints or extremities Skin General Skin Exam: no breakdown and turgor normal Neuro CN's II-XII intact bilaterally, no focal motor deficits, no sensory deficits noted and deep tendon reflexes 2+ bilaterally Coordination / Balance: [id number] test normal Motor Exam: strength 5/5 throughout Psych thought process normal, cooperative and affect normal Appearance: appropriate Assessment & Plan Assessment/Plan (1) Near syncope: (2) Orthostatic hypotension: PLAN: Plan #near syncope due to orthostatic hypotension * has no complaints today and feels much better * orthostatics were significantly positive. BP meds on hold * being hydrated gently with IVF * PT/OT on board. Fall precautions. * CT of the brain showed no acute intracranial pathology. * * #HYpertension * Meds held on admission due to orthostatic hypotension. Blood pressure this morning is 181/75. * On amlodipine, carvedilol and lisinopril at home * will resume carvedilol and continue holding amlodipine and lisinopril for now. * #History of CAD s/p CABG * has known of EF of 55% with stage II diastolic dysfunction and aortic sclerosis but no stenosis. * on aspirin, plavix and high intensity statin as well as carvedilol * #TYpe 2 diabetes mellitus * glucose is controlled. * on lantus. ISS. Accuchecks ACHS * #DVT prophylaxis: heparin Charges/Coding Visit Charges Inpatient E&M: 65617 Subs Hosp L2 03/11/23 1345 <Electronically signed by Catherine Barton MD> Catherine Barton MD Cosigner Signature (if applicable): CC: ~ Signed [facility] Work Phone: [phone]) 728-921608-04-2023 Discharge summary Author Citlali Zurita [facility] March 10, 2023 7:49pm Note Date/Time March 10, 2023 12: 17pm [facility] Medical Records Department [address] [place] [address] Emergency Department Summary 03/10/23 MR#: [id number] Acct: [id number] Name: YONY VEGA Rep #:[id number] : 1955 67 From: Citlali Zurita MD PCP: Dr. Kendy Modi MD Status:ADM CRICKET Location: [place] [address] HPI History of Present Illness Chief Complaint: Dizziness Detail of Chief Complaint: Near syncope Informant: patient and spouse/S.O. Onset/Context/Timing Onset: Today Narrative Narrative: Patient presents with 2 episodes of near syncope today. He states this morning he got up and walked into his bathroom. He states the next thing he remembers he was reaching for the sink and fell to the floor. He hit his back and did hithis head off the floor. He did not get knocked out. He states after laying there for a few minutes he was able to get up. He felt somewhat weak. He did eat and take his normal meds today. He came to the hospital for some testing and after lying for his procedure stood up and got lightheaded, everything wentblack, and his arms and legs stiffened. He was lowered back to the seated position and brought to the emergency room for evaluation. Patient denies having chest pain or palpitations. He states he has had episodes similar to this in the past but was never given an actual diagnosis. [facility] Medical History Anxiety disorder Arthritis 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 Cancer Cardiology follow-up encounter Carotid artery disease Colorectal cancer CPAP (continuous positive airway pressure) dependence CVA (cerebral vascular accident) Depression Diabetic neuropathy Dietary restriction Dyslipidemia Dysphagia Essential hypertension Gastric reflux GERD (gastroesophageal reflux disease) High cholesterol History of echocardiogram History of heart attack History of pain when walking History of stress test HTN (hypertension) Injury of back Injury of head and neck 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 Leg cramps Loss of hearing Non-smoker Obstructive sleep apnea ALEJANDRO (obstructive sleep apnea) Peripheral vascular occlusive disease Restless legs Restrictive lung disease Shortness of breath on exertion Syncope Type 2 diabetes mellitus Walker as ambulation aid Wears glasses Home Medications aspirin 81 mg chewable tablet 81 mg PO DAILY heart health 03/20/16 [History Last Taken 09/23/21] duloxetine 60 mg capsule,delayed release 60 mg PO DAILY depression 03/20/16 [History Last Taken 09/23/21] omeprazole 40 mg capsule,delayed release 40 mg PO DAILY gerd 01/09/20 [History Last Taken 09/22/21] fluticasone propionate 50 mcg/actuation nasal spray,suspension (Flonase Allergy Relief) 1 spray intranasal DAILY allergies 12/17/20 [History Last Taken 09/22/21] gabapentin 300 mg capsule 300 mg PO DAILY neuropathy 12/17/20 [History Last Taken 09/23/21] insulin detemir U-100 100 unit/mL (3 mL) subcutaneous pen 50 unit subcut BID blood sugar 12/17/20 [History Last Taken 09/22/21] multivitamin (Daily Multi-Vitamin tablet) 1 tab PO DAILY vitamin 06/22/21 [History Last Taken 09/23/21] insulin lispro 100 unit/mL subcutaneous pen (Humalog KwikPen (U-100) Insulin) See Rx Instructions subcut .COMPLEX diabetes 09/26/21 [History Last Taken Unknown] nitroglycerin 0.4 mg sublingual tablet 0.4 mg sublingual Q5M PRN chest pain #25 tabs 10/15/21 [Rx Last Taken Unknown] lisinopril 5 mg tablet 5 mg PO DAILY blood pressure #90 tabs 09/26/22 [Rx Last Taken Unknown] carvedilol 3.125 mg tablet 3.125 mg PO BID #180 tabs 10/03/22 [Rx Last Taken Unknown] clopidogrel 75 mg tablet 75 mg PO DAILY #90 tabs 10/10/22 [Rx Last Taken Unknown] amlodipine 5 mg tablet (Norvasc) 5 mg PO DAILY blood pressure #90 tabs 12/28/22 [Rx Last Taken Unknown] rosuvastatin 20 mg tablet 20 mg PO QHS cholesterol #90 tabs 02/13/23 [Rx Last Taken Unknown] Allergy/AdvReac Type Severity Reaction Status Date / Time No Known Allergies Allergy Verified 03/10/23 11:52 Family History Father CAD (coronary artery disease) Hypertension Cancer leukemia Diabetes Heart disease High cholesterol Mother CVA (cerebral vascular accident) Diabetes Breast cancer Brother Diabetes Surgical History Excision Max.Zygoma Face Tumor H/O coronary artery bypass surgery (05/30/08) History of bilateral cataract extraction History of coronary artery stent placement (01/02/15) History of eye surgery History of herniorrhaphy History of left heart catheterization (LHC) (~01/22/15) History of right and left heart catheterization (LHC) (~12/25/14) History of right-sided carotid endarterectomy History of tonsillectomy PTCA Left Anterior Tibial and Paroneal Artery Social History Smoking Status: Never smoker alcohol intake: never substance use type: does not use caffeine: Yes what type of physical activity do you participate in: none ROS ROS ED Constitutional Constitutional ED: Denies chills or fever(s) Eyes Eyes: Denies change in vision ENT ENT ED: Denies rhinorrhea or sore throat Cardiovascular Cardiovascular: Denies chest pain or palpitations Respiratory/Chest Respiratory/Chest: Denies cough or dyspnea Gastrointestinal Gastrointestinal: Denies abdominal pain, diarrhea, nausea or vomiting Genitourinary Genitourinary ED: Denies difficulty urinating or dysuria Musculoskeletal Musculoskeletal: Denies back pain or extremity pain Integumentary Denies Abrasions or rash Neurologic Neurologic: Reports weakness; Denies headache(s) Psychiatric Psychiatric: Denies anxiety or depression Allergic/Immunologic Allergic/Immunologic ED: Denies lip swelling or urticaria EXAM Physical Exam Const Vital Signs: 03/10/23 11:53 03/10/23 11:52 03/10/23 13:52 Temperature 98 F Temperature Source Temporal Pulse Rate 72 75 Pulse Rate [Lying] Pulse Rate [Sitting (for 1 minute prior to obtaining)] Pulse Rate [Standing (for 1 minute prior to obtaining)] Respiratory Rate 14 14 Respiratory Effort Normal Respiratory Pattern Normal Blood Pressure 127/63 H 137/66 H Blood Pressure [Lying] Blood Pressure [Sitting (for 1 minute prior to obtaining)] Blood Pressure [Standing (for 1 minute prior to obtaining)] Blood Pressure Mean 84 89 Blood Pressure Mean [Lying] Blood Pressure Mean [Sitting (for 1 minute prior to obtaining)] Blood Pressure Mean [Standing (for 1 minute prior to obtaining)] Pulse Ox 96 98 Oxygen Delivery Method Room Air Room Air 03/10/23 14:21 03/10/23 15:00 03/10/23 16:25 Temperature Temperature Source Pulse Rate 71 Pulse Rate [Lying] 75 73 Pulse Rate [Sitting (for 1 minute prior to obtaining)] 72 73 Pulse Rate [Standing (for 1 minute prior to obtaining)] 72 72 Respiratory Rate 15 Respiratory Effort Respiratory Pattern Blood Pressure 148/65 H Blood Pressure [Lying] 137/66 H 95/52 L Blood Pressure [Sitting (for 1 minute prior to obtaining)] 125/63 H 127/49 H Blood Pressure [Standing (for 1 minute prior to obtaining)] 88/49 L 138/57 H Blood Pressure Mean 92 Blood Pressure Mean [Lying] 89 66 Blood Pressure Mean [Sitting (for 1 minute prior to obtaining)] 83 75 Blood Pressure Mean [Standing (for 1 minute prior to obtaining)] 62 84 Pulse Ox 98 Oxygen Delivery Method Room Air Positive well nourished and well developed General Appearance ED: well developed HEENT Reports normocephalic and head/scalp atraumatic Eyes PERRL and EOMs intact bilaterally Neck supple Chest Wall inspection of chest normal and palpation of chest normal Resp normal respiratory effort and clear to auscultation bilaterally Cardio regular rate and regular rhythm GI normal to inspection, nondistended, normoactive bowel sounds Palpation: soft Extremity normal to inspection Neuro oriented x3 and no sensory deficits noted Sensorium / Orientation: alert Motor Exam: strength 5/5 throughout Psych mental status grossly normal Skin no rashes or lesions noted MDM MDM MDM Narrative Medical decision making narrative: Patient placed on renal dietitian. EKG obtained to evaluate for cardiac arrhythmia/ischemia. Labwork obtained to evaluate for leukocytosis, anemia, andelectrolyte derangement. Urinalysis obtained to evaluate for infection/hematuria. CT scan of the head obtained given his fall with head injury. Patient ordered 1 L IV fluids. Lab Data Attestation: I reviewed the patient's lab results. Labs: Laboratory Results - last 24 hr 03/10/23 03/10/23 12:10 14:22 WBC 8.1 RBC 4.64 Hgb 13.0 Hct 40.6 MCV 87.5 MCH 28.0 MCHC 32.0 RDW Std Deviation 45.3 H RDW Coeff of Maia 14.2 Plt Count 295 MPV 9.4 Immature Gran % (Auto) 0.500 Neut % (Auto) 79.4 H Lymph % (Auto) 10.6 L Ford % (Auto) 8.5 Eos % (Auto) 0.5 Baso % (Auto) 0.5 Absolute Neuts (auto) 6.4 Absolute Lymphs (auto) 0.86 Nucleated RBC % 0 Sodium 139 Potassium 4.3 Chloride 104 Carbon Dioxide 31.0 Anion Gap 4 L BUN 20 H Creatinine 1.16 Estim Creat Clear Calc 59.36 Est GFR (MDRD) Af Amer 81 Est GFR (MDRD) Non-Af 67 BUN/Creatinine Ratio 17.2 Glucose 141 H Calcium 8.8 Troponin I High Sens 12 Urine Color Yellow Urine Clarity Clear Urine pH 6.0 Ur Specific [place] 1.015 Urine Protein 15 H Urine Glucose (UA) 50 H Urine Ketones Negative Urine Occult Blood Negative Urine Nitrite Negative Urine Bilirubin Negative Urine Urobilinogen Normal Ur Leukocyte Esterase Negative Urine RBC 0 SEEN Urine WBC 0 SEEN Ur Squamous Epith Cells 0 SEEN Urine Bacteria 0 SEEN Urine Mucus 0 SEEN Radiography Chest X-Ray - ED: 1 View, Read by ED Physician and Chronic Changes Diagnostic Testing: Clinical Impression(s) from Imaging Studies Brain CT 03/10/23 12:11 IMPRESSION: Chronic involutional changes of the brain. Stable lacunar infarcts involving both basal ganglia. Electronically Signed: Navdeep Gonzales MD at 12:48 EDT , Chest X-Ray 03/10/23 12:31 IMPRESSION: Cardiomegaly, sternotomy wires, aortic tortuosity and mild hyperinflation. No active or acute cardiopulmonary disease. Electronically Signed: Amilcar Siddiqui MD at 12:44 EDT , EKG Initial EKG: Attestation: I personally reviewed and interpreted this EKG as follows: Interpretation: Sinus Rhythm (Sinus at 71 with no acute ischemia.) Treatment and Re-Evaluation :: CBC was normal white count 8.1 with a hemoglobin of 13. Chemistry studies significant for BUN of 20 which appears consistent with his baseline. Creatinine is 1.16. Glucose is 141. Urinalysis is unremarkable with no infection. He has no ketones in his urine. Chest x-ray per my interpretation reveals chronic changes with no acute findings. Radiology interpretation is reviewed and agrees. CT scan of the head reveals chronic involutional changes with stable lacunar infarcts. After 1 L of IV fluid, orthostatic vital signs are obtained. Patient's blood pressure goes from 137/66 while lying to 88/49 while standing. Heart rate does not significantly change. Patient is given a second liter of IV fluid. Orthostatic vital signs are repeated. Again his blood pressure dropped from 138/57 to 95/52 when standing. With patient having continued orthostasis despite 2 L of IV fluid, I will speak with hospitalist regarding observation. He will likely need to have his blood pressure medications adjusted. Discharge Plan Triage Chief Complaint: Dizziness ED Provider: Citlali Zurita Dx/Rx/DC Orders Clinical Impression: Orthostatic hypotension, Near syncope Prescriptions: No Action gabapentin 300 mg capsule 300 mg PO DAILY fluticasone propionate [Flonase Allergy Relief] 50 mcg/actuation spray,suspension 1 spray intranasal DAILY Rx Instructions: administer into each nostril multivitamin [Daily Multi-Vitamin] Tablet 1 tab PO DAILY nitroglycerin 0.4 mg tablet, sublingual 0.4 mg sublingual Q5M PRN (Reason: chest pain) Qty: 25 3RF Rx Instructions: do not exceed 3 doses per episode aspirin 81 MG tablet,chewable 81 mg PO DAILY Patient Comments: heart health duloxetine 60 MG capsule,delayed release(DR/EC) 60 mg PO DAILY Patient Comments: antidepressant insulin detemir U-100 100 unit/mL (3 mL) insulin pen 50 unit SC BID omeprazole 40 MG capsule,delayed release(DR/EC) 40 mg PO DAILY insulin lispro [Humalog KwikPen Insulin] 100 unit/mL insulin pen See Rx Instructions SC .COMPLEX Rx Instructions: Take 17 units each meal plus sliding scale up to 65 units daily lisinopril 5 mg tablet 5 mg PO DAILY Qty: 90 3RF carvedilol 3.125 mg tablet 3.125 mg PO BID Qty: 180 3RF clopidogrel 75 mg tablet 75 mg PO DAILY Qty: 90 3RF amlodipine [Norvasc] 5 mg tablet 5 mg PO DAILY Qty: 90 3RF rosuvastatin 20 mg tablet 20 mg PO QHS Qty: 90 3RF Primary Care Provider: Kendy Modi Referrals: Kendy Modi MD [Primary Care Provider] - Disposition Disposition: Acute Care Hospital [facility] What to do if you have Problems For any increased pain, shortness of breath, bleeding, nausea or vomiting, chestpain, or any unexpected problems, contact your Primary Care Provider. Call [facility] ([phone]) or report to the closest Emergency Room. Call 911 if necessary. 03/10/231948 <Electronically signed by Citlali Zurita MD> Cosigner Signature (if applicable): CC: Dr. Kendy Modi MD ~ Signed [facility] Work Phone: 1(337) 833-193508-04-2023 History and physical note Author Matt Penny [facility] March 10, 2023 5:27pm Note Date/Time March 10, 2023 4:4 8pm [facility] Medical Records Department [address] [place] [id number] H&P Exam - Hospitalist 03/10/23 1644 MR#: [id number] Acct: [id number] Name: YONY VEGA Rep #:[id number] : 1955 67 From: Matt Simon PCP: Dr. Kendy Modi MD Status:ADM CRICKET Location: [place] [address] HPI - General General Date of Admission: 03/10/23 Date of Service: 03/10/23 Chief Complaint: Near syncope 2 episodes today. HPI Narrative cedric WELLINGTON a 67 M was sent to ED from wound nurse Ai after he had syncopal episode while changing the stoma dressing. Before that, he woke up in the morning feeling dizzy and lightheaded while walking to bathroom and then fell in the bathroom hitting the back of the head. He states he did not passed out. Then he came to see Ai wound nurse for change his colostomy dressing. While trying to stand up after laying down position for stoma dressing, he felt dizzy, his body got stiff and felt black before eyes but did not pass out. Ai asked is he okay but he did not respond therefore sent to ED. Denies chest pain pressure tightness or palpitation. He had similar episode in the past but does not remember well. In ED, orthostatic vitals shows a drop in blood pressure from systolic 137-88 diastolic from 66-49 from supine to standing position. But his heart rate did not change. Second time his blood pressure was 95/52 on seven-point and increased to 138/57 with standing. His baseline blood pressure is 127/63 heart rate in 70s. Patient is having second unit of normal saline bolus running. Twelve-lead EKG shows normal sinus rhythm 71 beats 1, QTc [address]- T changes. His previous EKG was also normal in September 2021. Patient has history of coronary artery disease status post CABG and follows Dr. Smith and Vishal gonzalez NP, last clinic visit January 2023 [facility] Medical History Anxiety disorder Arthritis 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 Cancer Cardiology follow-up encounter Carotid artery disease Colorectal cancer CPAP (continuous positive airway pressure) dependence CVA (cerebral vascular accident) Depression Diabetic neuropathy Dietary restriction Dyslipidemia Dysphagia Essential hypertension Gastric reflux GERD (gastroesophageal reflux disease) High cholesterol History of echocardiogram History of heart attack History of pain when walking History of stress test HTN (hypertension) Injury of back Injury of head and neck 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 Leg cramps Loss of hearing Non-smoker Obstructive sleep apnea ALEJANDRO (obstructive sleep apnea) Peripheral vascular occlusive disease Restless legs Restrictive lung disease Shortness of breath on exertion Syncope Type 2 diabetes mellitus Walker as ambulation aid Wears glasses Home Medications aspirin 81 mg chewable tablet 81 mg PO DAILY heart health 03/20/16 [History Last Taken 03/10/23] duloxetine 60 mg capsule,delayed release 60 mg PO DAILY depression 03/20/16 [History Last Taken 03/10/23] omeprazole 40 mg capsule,delayed release 40 mg PO DAILY gerd 01/09/20 [History Last Taken 03/10/23] fluticasone propionate 50 mcg/actuation nasal spray,suspension (Flonase Allergy Relief) 1 spray intranasal DAILY PRN allergies 12/17/20 [History Last Taken 09/22/21] gabapentin 300 mg capsule 300 mg PO DAILY neuropathy 12/17/20 [History Last Taken 03/10/23] insulin detemir U-100 100 unit/mL (3 mL) subcutaneous pen 50 unit subcut BID blood sugar 12/17/20 [History Last Taken 03/10/23] insulin lispro 100 unit/mL subcutaneous pen (Humalog KwikPen (U-100) Insulin) See Rx Instructions subcut .COMPLEX diabetes 09/26/21 [History Last Taken 03/10/23] nitroglycerin 0.4 mg sublingual tablet 0.4 mg sublingual Q5M PRN chest pain #25 tabs 10/15/21 [Rx Last Taken Unknown] lisinopril 5 mg tablet 5 mg PO DAILY blood pressure #90 tabs 09/26/22 [Rx Last Taken 03/10/23] carvedilol 3.125 mg tablet 3.125 mg PO BID heart #180 tabs 10/03/22 [Rx Last Taken 03/10/23] clopidogrel 75 mg tablet 75 mg PO DAILY blood thinner #90 tabs 10/10/22 [Rx Last Taken 03/10/23] amlodipine 5 mg tablet (Norvasc) 5 mg PO DAILY blood pressure #90 tabs 12/28/22 [Rx Last Taken 03/10/23] rosuvastatin 20 mg tablet 20 mg PO QHS cholesterol #90 tabs 02/13/23 [Rx Last Taken 03/10/23] magnesium oxide 400 mg PO BID supplement 03/10/23 [History Last Taken 03/10/23] peg 400-propylene glycol (PF) 0.4 %-0.3 % eye drops in a dropperette (Lubricant Eye (PG-PEG 400) (PF)) 1 drp EACH EYE DAILY PRN dry eye(s) 03/10/23 [History Last Taken Unknown] Allergy/AdvReac Type Severity Reaction Status Date / Time No Known Allergies Allergy Verified 03/10/23 11:52 Family History Father CAD (coronary artery disease) Hypertension Cancer leukemia Diabetes Heart disease High cholesterol Mother CVA (cerebral vascular accident) Diabetes Breast cancer Brother Diabetes Surgical History Excision Max.Zygoma Face Tumor H/O coronary artery bypass surgery (05/30/08) History of bilateral cataract extraction History of coronary artery stent placement (01/02/15) History of eye surgery History of herniorrhaphy History of left heart catheterization (LHC) (~01/22/15) History of right and left heart catheterization (LHC) (~12/25/14) History of right-sided carotid endarterectomy History of tonsillectomy PTCA Left Anterior Tibial and Paroneal Artery Social History Smoking Status: Never smoker alcohol intake: never substance use type: does not use caffeine: Yes what type of physical activity do you participate in: none ROS ROS Narrative Constitutional: Denies acute fatigue and weakness. No fever. HEENT: No recent URI symptoms reports systems reviewed and no addt'l complaints,except as documented Respiratory/Chest: No acute shortness of breath or respiratory distress or wheezing. CVS: No chest pain pressure or tightness. Gastrointestinal: Denies coffee ground emesis, hematemesis or vomiting. Has colostomy Genitourinary: Denies burning urination or new urinary tract symptoms Musculoskeletal: Denies acute joint pain or limited range of motion. No acute injury Neurologic: Denies seizure-like symptoms. skin: No ulcer. No rash Endocrinology: Reports systems reviewed and no addt'l complaints, except as documented Hematologic/Lymphatic: Reports systems reviewed and no addt'l complaints, exceptas documented Rest 14 ROS are negative except as mentioned in HPI Vital Signs Vital Signs Vital Signs: 03/10/23 11:53 03/10/23 11:52 03/10/23 13:52 Temperature 98 F Temperature Source Temporal Pulse Rate 72 75 Pulse Rate [Lying] Pulse Rate [Sitting (for 1 minute prior to obtaining)] Pulse Rate [Standing (for 1 minute prior to obtaining)] Respiratory Rate 14 14 Respiratory Effort Normal Respiratory Pattern Normal Blood Pressure 127/63 H 137/66 H Blood Pressure [Lying] Blood Pressure [Sitting (for 1 minute prior to obtaining)] Blood Pressure [Standing (for 1 minute prior to obtaining)] Blood Pressure Mean 84 89 Blood Pressure Mean [Lying] Blood Pressure Mean [Sitting (for 1 minute prior to obtaining)] Blood Pressure Mean [Standing (for 1 minute prior to obtaining)] Pulse Ox 96 98 Oxygen Delivery Method Room Air Room Air 03/10/23 14:21 03/10/23 15:00 03/10/23 16:25 Temperature Temperature Source Pulse Rate 71 Pulse Rate [Lying] 75 72 Pulse Rate [Sitting (for 1 minute prior to obtaining)] 72 73 Pulse Rate [Standing (for 1 minute prior to obtaining)] 72 73 Respiratory Rate 15 Respiratory Effort Respiratory Pattern Blood Pressure 148/65 H Blood Pressure [Lying] 137/66 H 138/57 H Blood Pressure [Sitting (for 1 minute prior to obtaining)] 125/63 H 127/49 H Blood Pressure [Standing (for 1 minute prior to obtaining)] 88/49 L 95/52 L Blood Pressure Mean 92 Blood Pressure Mean [Lying] 89 84 Blood Pressure Mean [Sitting (for 1 minute prior to obtaining)] 83 75 Blood Pressure Mean [Standing (for 1 minute prior to obtaining)] 62 66 Pulse Ox 98 Oxygen Delivery Method Room Air 03/10/23 16:40 Temperature Temperature Source Pulse Rate 72 Pulse Rate [Lying] Pulse Rate [Sitting (for 1 minute prior to obtaining)] Pulse Rate [Standing (for 1 minute prior to obtaining)] Respiratory Rate 16 Respiratory Effort Respiratory Pattern Blood Pressure 141/56 H Blood Pressure [Lying] Blood Pressure [Sitting (for 1 minute prior to obtaining)] Blood Pressure [Standing (for 1 minute prior to obtaining)] Blood Pressure Mean 84 Blood Pressure Mean [Lying] Blood Pressure Mean [Sitting (for 1 minute prior to obtaining)] Blood Pressure Mean [Standing (for 1 minute prior to obtaining)] Pulse Ox 95 Oxygen Delivery Method Room Air Weight Weight: 156 lb 4.924 oz Body Mass Index (BMI) 24.5 Physical Exam Narrative General: Alert, Oriented x3, Cooperative HEENT: Atraumatic, PERRLA, EOMI, Normocephalic Oral: Oral mucosa dry. No Gingival or Mucosal Lesions/ Ulcerations Neck: Supple, No JVD, Negative Carotid Bruits Lungs: Air entry diminished in bilateral lung bases. No crepitation/rhonchi Cardiovascular: Regular rate, Regular Rhythm, Normal S1, Normal S2, No murmurs Abdomen: Bowel Sounds Present, Soft, Non Tender, Non-Distended. Left lower colostomy which is prolapsed and herniated but no active bleeding or ulcer : No renal angle tenderness. No suprapubic tenderness. Extremities: No edema, Capillary Refill Less than 3 Seconds Skin: No rashes, No breakdown Musculoskeletal: No Tenderness to Palpation of Joints or Extremities. ROM intact. Neurological: Cranial nerves II-XII grossly intact, DTR 2+/4. No acute focal neurological deficit. Psych/Mental Status: Flat affect. Results Lab / Micro Data 03/10/23 12:10 03/10/23 12:10 Labs: Laboratory Results - last 24 hr 03/10/23 12:10: WBC 8.1, RBC 4.64, Hgb 13.0, Hct 40.6, MCV 87.5, MCH 28.0, MCHC 32.0, RDW Std Deviation 45.3 H, RDW Coeff of Maia 14.2, Plt Count 295, MPV 9.4, Immature Gran % (Auto) 0.500, Neut % (Auto) 79.4 H, Lymph % (Auto) 10.6 L, Ford %(Auto) 8.5, Eos % (Auto) 0.5, Baso % (Auto) 0.5, Absolute Neuts (auto) 6.4, Absolute Lymphs (auto) 0.86, Nucleated RBC % 0, Sodium 139, Potassium 4.3, Chloride 104, Carbon Dioxide 31.0, Anion Gap 4 L, BUN 20 H, Creatinine 1.16, Estim Creat Clear Calc 59.36, Est GFR (MDRD) Af Amer 81, Est GFR (MDRD) Non-Af 67, BUN/Creatinine Ratio 17.2, Glucose 141 H, Calcium 8.8, Troponin I High Sens 12 03/10/23 14:22: Urine Color Yellow, Urine Clarity Clear, Urine pH 6.0, Ur Specific [place] 1.015, Urine Protein 15 H, Urine Glucose (UA) 50 H, Urine Ketones Negative, Urine Occult Blood Negative, Urine Nitrite Negative, Urine Bilirubin Negative, Urine Urobilinogen Normal, Ur Leukocyte Esterase Negative, Urine RBC 0 SEEN, Urine WBC 0 SEEN, Ur Squamous Epith Cells 0 SEEN, Urine Bacteria 0 SEEN, Urine Mucus 0 SEEN Radiology Impression Brain CT 03/10/23 12:11 IMPRESSION: Chronic involutional changes of the brain. Stable lacunar infarcts involving both basal ganglia. Electronically Signed: Navdeep Gonzales MD at 12:48 EDT , Chest X-Ray 03/10/23 12:31 IMPRESSION: Cardiomegaly, sternotomy wires, aortic tortuosity and mild hyperinflation. No active or acute cardiopulmonary disease. Electronically Signed: Amilcar Siddiqui MD at 12:44 EDT , Assessment & Plan Assessment/Plan (1) Near syncope: (2) Orthostatic hypotension: PLAN: Plan This 67-year-old gentleman is being admitted for near syncope x2 today 1. Near syncope associated with orthostatic hypotension probably due to antihypertensive medications: Patient is being admitted in PCU. Patient on amlodipine 5 mg daily, carvedilol 3.125 mg twice daily, lisinopril 5 mg daily, gabapentin and duloxetine . All antihypertensive medications including decreased dose of gabapentin. Twelve-lead EKG and troponin normal. Patient denies history of fluid loss through colostomy or nausea or vomiting therefore Isuspect mostly due to antihypertensive medications. 2. History of non-STEMI and coronary artery disease status post CABG and hypertension and dyslipidemia: Patient last clinic visit was in January 2023. Lastecho in September 2021, reported EF 55%, stage II diastolic function, trivial TR,PASP 40 mmHg aortic sclerosis but no aortic stenosis or AI overall consistent with chronic HFpEF Fasting profile in October 2022, LDL 94, HDL 30 and TG 196. Patient was last admitted in September 2021 for altered mental status and acute NSTEMI. Last pharmacological nuclear stress in October 2021 reported normal. Patient does not have acute chest pain or pressure or shortness of breath. 3. Diabetes mellitus type 2: Glucose is controlled. 141 in BMP. Long-acting and short-acting insulin decreased with holding parameters. Accu-Cheks insulin coverage Humalog sliding scale. 4. DVT prophylaxis heparin 5000 subcutaneous every 8 hourly. Living will/advanced directive/end of life care: Patient does not have living will or advanced directive. He does not have major power of workers compensation defense attorney for health. His is next of kin. After discussion of benefits/risks proceduresinvolved with full code, DNR CC arrest and DNR CC, the patient opted for full code. Patient does want artificial life support including intubation, tube feed, ventilator and/chest compression, central venous catheter, vasopressor and DC shock if needed Total time spent in [id number] encounter in discussion of advanced directive 17 minutes. Laboratory Results 03/10/23 12:10: WBC 8.1, RBC 4.64, Hgb 13.0, Hct 40.6, MCV 87.5, MCH 28.0, MCHC 32.0, RDW Std Deviation 45.3 H, RDW Coeff of Maia 14.2, Plt Count 295, MPV 9.4, Immature Gran % (Auto) 0.500, Neut % (Auto) 79.4 H, Lymph % (Auto) 10.6 L, Ford % (Auto) 8.5, Eos % (Auto) 0.5, Baso % (Auto) 0.5, Absolute Neuts (auto) 6.4, Absolute Lymphs (auto) 0.86, Nucleated RBC % 0, Sodium 139, Potassium 4.3, Chloride 104, Carbon Dioxide 31.0, Anion Gap 4 L, BUN20 H, Creatinine 1.16, Estim Creat Clear Calc 59.36, Est GFR (MDRD) Af Amer 81, Est GFR (MDRD) Non-Af 67, BUN/Creatinine Ratio 17.2, Glucose 141 H, Calcium 8.8,Phosphorus Pending, Magnesium Pending, Troponin I High Sens 12 03/10/23 14:22: Urine Color Yellow, Urine Clarity Clear, Urine pH 6.0, Ur Specific [place] 1.015, Urine Protein 15 H, Urine Glucose (UA) 50 H, Urine Ketones Negative, Urine Occult Blood Negative, Urine Nitrite Negative, Urine Bilirubin Negative, Urine Urobilinogen Normal, Ur Leukocyte Esterase Negative, Urine RBC 0 SEEN, Urine WBC 0 SEEN, Ur Squamous Epith Cells 0 SEEN, Urine Bacteria 0 SEEN, Urine Mucus 0 SEEN Charges/Coding Visit Charges Inpatient E&M: 92449 Init Hosp L3 Procedures Hospitalists Procedures: 63464 Advncd Care Plan 30 Min 03/10/23 1727 <Electronically signed by Matt Penny MD> Cosigner Signature (if applicable): CC: Dr. Kendy Modi MD; Dr. Matt Penny MD~ Signed [facility] Work Phone: [phone]) 156-624310-05-2022 History of Present illness Narrative* Kori Abdul RN - 05/11/2022 12:39 PM EDT ET/WOCN Nursing Consult Topic: ET/WOCN Consultation Note 05/11/2022 ET Outcome: Patient here with daughter following outpatient appointment with Dr. Galarza. Patient has small bulge (hernia?) under stoma but biggest issue is a prolapse that he finds unsightly and hardto dress around. Many ideas on how to assist with this were given. Patient measured for [employer] Nuform belt left sided large [id number] with prolapse strap. He was given information on the carefix stomasafe plus band and also the hernia version of the stealth belt. Patient given information to orderstealth belt if he wishes. His pouching system [...] nos ting skin prep Pouching System: applied: Deputy New Image 2-3/4 flat with paste over hollihesive washer to lock n roll pouch Wear Time: goal is 3-5 days Midline Abdominal Incision: Healed scar Comment: Patient will be sent closed pouches from [facility]. Time Increment: 1 hour 45 minutes ANTHONY LomaxN, RN, CWOCN M-F 8am-4pm Weekends/Holidays 8am-3pm * Kori Abdul RN - 05/11/2022 11:18 [place] [address] Patient: Isaias Vega Patient [address]: [address] [place] [address] [place] [address] Preferred Gender: male Date of : 1955 Type of Stoma: End Descending Colostomy Diagnosis: Rectal Cancer C20 OSTOMY SUPPLY ORDER FORM Pouch: Deputy: #[id number] New Image closed pouch with filter 30 day use - 2 Boxes Wafer: Deputy: #[id number] precut 2 flat New Image 30 day use - 4 Boxes Adhesive Removers: Coloplast Brava Lapel # [id number] 4 Bottles over 90 days Adhesive Removers: Essenta #[id number] 30 day use - 1 Box Belt: Ranjana Medium # 7300 30 day use - As Needed Paste: ConvaTec Stomahesive # [id number] 30 day use - 2 Tubes Powder: ConvaTec Stomahesive # 36550 30 day use - As Needed Skin Barrier: Deputy Hollihesive 4x4 5/box #7700 30 day use - 3 Boxes Skin Sealant: 3M Cavilon No Sting, 50/Box #3342 30 day use - 1 Box Ranjana Deodorant: M-9 #7717 `1 Bottle as needed Nuhope Nuform hernia belt beige, left sided with offset of 1 from bottom opening size large [id number] Refills: 11 Attending Physician: Dr. Galarza For immediate authorization, please contact the physician s office. [facility] Nurse: JIM Lomax, CWOCN Note: Contact Diamond Clark at [facility] SIGNATURE: Kori Abdul RN PATIENT NAME: Isaias Vega DATE: May 11, 2022 TIME: 11:18 AM CONTACT #: [phone] EMAIL: [email or web address] documented in this encounterSalem City Hospital10-[facility]22 History of Present illness Narrative* I Shira Galarza MD - 05/11/2022 9:00 AM EDT COLORECTAL SURGERY Follow-up May 09, 2022 Chief complaint: history of rectal cancer HPI: Isaias Vega is a 66 year old male here today for a follow up appt after undergoing Robotic APR with [facility] on 05.26.20 for rectal cancer cT3 cN1 M0. He was originally diagnosed with rectal cancer in April 2019; He completed chemoradiation on 08/13/2019, and was restaged with MRI after this. His case was presented to [facility] who recommended ELMA followed by restaging and surgical intervention if needed. He completed ELMA on 02/24/2020. His case was presented to [facility] on 03/25/20, and it was recommended that he proceed with Robotic APR with [facility]. Isaias had a VV to discuss this surgery with Dr Galarza on 04/01/2020, and agreed to proceed. He is now on surveillance, and is seeing Dr Galarza for follow up and stoma concerns. Most recent imaging CT scans were done in November 2021, A/P showed concern for liver mets - MRI liverwas done which fat containing liver nodules. MRI Liver with T3 magnet was done in March and showeddiffuse hepatic steatosis - see full report. Will [...] colon is normal. Colonoscopy per LLQ end sigmoidcolostomy. Large parastomal hernia and bowel prolapse. No [...] with right lateral pelvic lymph node dissection andcreation of an end colostomy and primary closure [...] dissection) Physical Exam: Ht 170.2 cm (5' 7) Wt 70.9 kg (156 lb 6.4 oz) BMI 24.50 kg/m General - awake, alert, no acute distress Abdominal - WNL Anorectal: Perianal skin is intact. No erythema, induration or excoriation. No fissure, fistula or external hemorrhoids. Assessment Medical Decision Making: Assessment & Diagnosis: Isaias Vega is a 66 year old male with a hhistory of rectal cancer s/p APR now with colostomy prolapse Data Reviewed: Tests & Documents Reviewed/ordered: Review of prior notes from previous visits Review of prior operative reports Review of Pathology Review of Imaging: CT Abdomen, CT Pelvis, CT Chest Review of Procedures / Tests: Colonoscopy Assessment by: Care Center Team I have independently interpreted: CT Abdomen, CT Pelvis, CT Chest I have discussed Isaias Vega's treatment plan and/or results with himself. Treatment plan: stoma team consult if they are unable to help, he may need ostomy revision with me he will reach out Risk of morbidity, mortality and/or complications of treatment plan: moderate documented in this encounterSalem City Hospital08-09-2022 NoteHNO ID: [id number] Author: Genia Clement RN Service: Nursing Author [...] SIGNATURE: Genia Clement RN PATIENT NAME: Isaias Vega DATE: March 15, 2022 TIME: 2:15 [facility]Beks[facility] History of Present illness Narrative* Genia Clement RN - 03/15/2022 2:00 PM EDT Radiology Service Progress Note DATE OF SERVICE: [...] Cane, Wheelchair, Crutches, etc.)? Yes, Patient High Riskfor Falls What interventions were put in place [...] SIGNATURE: Genia Clement RN PATIENT NAME: Isaias Vega DATE: March 15, 2022 TIME: 2:15 PM documented in this encounterSalem City Hospital08-09-2022 Miscellaneous Notes* [facility] - MARLENE Camilo - 03/15/2022 2:00 PM EDT Radiology Service Progress Note PATIENT NAME: Isaias Vega DATE OF SERVICE: March 15, 2022 TIME: 2:54 PM PATIENT IDENTITY VERIFICATION COMPLETED USING TWO (2) IDENTIFIERS: Name and Date of confirmedby patient verbally and Name and Date of [...] 15, 2022 2:54 PM documented in this encounterSalem City Hospital05-09-2022 History of Present illness Narrative* Everardo Yusuf APRN.ARTI - 12/13/2021 2:06 PM EDT Chief Complaint Patient presents with: Established Patient HPI: Isaias Vega is a 66 year old male who presents here today for follow up rectal cancer. 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 Biomarkers: Mismatch repair ICH: MLH-1 (M1) positive MSH2 (25D12) positive MSH6 (44) positive PMS2 (TFN4422) positive Result of Microsatellite Instability Study -Negative [...] CEA and b/l leg angioplasty. Presented to [facility] on 05/[facility]/2019 with an episode of syncope. He was orthostaticon presentation and had a hemoglobin of 10 [...] blood cell transfusion. Patient was [facility] and underwent evaluation by Dr. Galarza on 05/15/2019. Flexible sigmoidoscopy revealed a large fungating mass on the posterior aspect of the rectum extending along the left side to the anterior margin. It was fixated and extending into the sphincter pastthe dentate line. MRI rectum 05/15/2019: RESULT: TUMOR [...] of the left arm. 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 His ambulation around the house is limited by his sciatica and his peripheral vascular disease. He prefers to use of a wheelchair when going to medical appointments). [place] well the remainder of that week but [...] viable soft tissue component, but with residual mucinouschange. Persistently enlarged bilateral internal iliac lymph nodes, [...] in-situ hybridization tests have been determined by [facility] [place] ([facility]) in a manner consistent with CLIA requirements. One or more of these tests have not been cleared or approved by the FDA. [facility] is regulated under CLIA as qualified to perform high-complexity testing. These tests are used for clinical purposes. They should not be regarded as investigational or for research. SYNOPTIC REPORT OF GRIGGS PATHOLOGIC FINDINGS SIGMOID, RECTUM AND ANUS: COLON [...] performed with attendance of rectal cancer multidisciplinary steam table attendant: Yes Pt. went to [facility] ED 09/23/21 for UTI. He went back to the ED next day-elevated troponin. Dx-UTI, pneumonia, NSTEMI. He had home PT afterwards that he feels helped a lot. Pt. here today with his . Appetite:Real good. Wt. up 1# since 2020 Energy level:Not real good. Denies fevers. Resp:denies cough or [...] 4.00 k/uL 0.82 (L) 0.79 (L) 1.07 Ford% % 8.3 10.0 10.4 Abs Ford <0.87 k/uL 0.74 0.53 0.71 Eosin% % [...] 3 MONTHS TO ASSESS FOR ANY CHANGE INSIZE. ASSESSMENT/PLAN: 1. Rectal cancer (HCC) - ICD9: 154.1, ICD10: C20 [id number] stage III invasive adenocarcinoma of the lower [...] (on 3T magnet) in 3 months at [place]. - Needs appt. with Dr. Galarza d/t stoma pain/bleeding. Pt. will call. - [...] visit. Everardo Yusuf APRN.ARTI [facility] History of Present illness Narrative* Shelia Ha RT(R) - 12/09/2021 2:20 PM EDT Radiology Service Progress Note DATE OF SERVICE: December 09, 2021 TIME: 3:02 PM PATIENT IDENTITY VERIFICATION COMPLETED USING TWO (2) STANDARD IDENTIFIERS: Name and Date of confirmed by patient verbally. FALL SCREENING: Has the patient had 2 falls in the last year or 1 fall with injury or currently using an Ambulatory Assistive Device (Walker, Cane, Wheelchair, Crutches, etc.)? Yes, Patient High Riskfor Falls What interventions were put in place to prevent falls during this visit? Instructed Patient to Callfor Help if Needed, Offered Assistance with Transfers/Clothing, Instructed Patient to Remain Seated(Not on Exam Table) Until Exam and Increased [...] creatinine assay has traceable calibration to isotope dilution- mass spectrometry. Refer to KDIGO guidelines for clinical interpretation. In patients with unstable renal function, e.g. those with acute kidney injury, the eGFRmay not accurately reflect actual GFR. eGFR- Date Value Ref Range Status 05/24/2021 >60 Final P.O.C.T. RESULTS: POC done: Yes, See Lab Tab December 09, 2021 TREATMENT: N/A PERIPHERAL IV DATA: Ambulatory: A peripheral IV was started in the Right antecubital site with a Angio cath: 22 gauge. RADIOLOGY DEPARTMENT: MR; Exam(s) Completed: Body: Liver (routine) SIGNATURE: RT Lizbeth(R) PATIENT NAME: Isaias Vega DATE: December 09, 2021 TIME: 3:02 PM documented [facility] Miscellaneous Notes* Telephone Encounter - Nikki Gabriel - 11/23/2021 1:00 PM EDT SPOKE TO PT AND SCHEDULED. Nikki Gabriel * Telephone Encounter - Everardo Yusuf APRN.CNP - 11/23/2021 12:[address]'s with pt. Please schedule MRI liver soon. Order in. If not able to have MRI prior to OV then please push OV out. Thank you. Everardo Yusuf APRN.CNP documented [facility] History of Present illness Narrative* RT Hua(R) - 11/22/2021 3:00 PM EDT Radiology Service Progress Note DATE OF SERVICE: [...] creatinine assay has traceable calibration to isotope dilution- mass spectrometry. Refer to KDIGO guidelines for clinical interpretation. In patients with unstable renal function, e.g. those with acute kidney injury, the eGFRmay not accurately reflect actual GFR. eGFR- Date Value Ref Range Status 05/24/2021 >60 Final P.O.C.T. RESULTS: POC done: Yes, See Lab Tab November 22, 2021 TREATMENT: N/A PERIPHERAL IV DATA: Ambulatory: A peripheral IV was started in the Left hand with a Angio cath: 22 gauge. 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 [facility] Work Phone: [phone]) 932-711510-24-2008 Evaluation note* Diagnosis Onset Date Resolution Status Coronary artery disease 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 Diabetes chronic Dyslipidemia chronic Essential hypertension chron ic H/O coronary artery bypass surgery May 30, 2008 chronic History of coronary artery stent placement January 02, 2 015 [facility] Work Phone: Evaluation note* Diagnosis Onset Date Resolution Status Colorectal cancer acute Parastomal hernia acute UTI (urinary tract infection) acute [id number] chronic Dyslipidemia chronic HTN (hypertension) chronic 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 Altered mental status resolv ed Hypoxia resolved Non-ST elevation [place] (NSTEMI) resolved [id number] chronic Dyslipidemia chronic HTN (hypertension) chronic 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 [facility] 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 Phone: Evaluation note* Diagnosis Rectal cancer (HCC)- Primary Malignant neoplasm of rectum [facility] Diagnosis Rectal cancer (HCC) Malignant neoplasm of rectum [facility]* Diagnosis Rectal cancer (HCC)- Primary Malignant neoplasm of rectum Abnormal CT of the abdomen Nonspecific (abnormal) findings on radiological and other examination of abdominal area, including retroperitoneum [facility]* Diagnosis Rectal cancer (HCC) Malignant neoplasm of rectum Abnormal CT of the abdomen Nonspecific (abnormal) findings on radiological and other examination of abdominal area, including retroperitoneum [facility]* Diagnosis Rectal cancer (HCC)- Primary Malignant neoplasm of rectum Abnormal MRI, liver Nonspecific (abnormal) findings on radiological and other examination of biliary tract [facility]* Diagnosis Rectal cancer (HCC) Malignant neoplasm of rectum Abnormal MRI, liver Nonspecific (abnormal) findings on radiological and other examination of biliary tract [facility]* Diagnosis History of rectal cancer- Primary Personal history of malignant neoplasm of rectum, rectosigmoid junction, and anus [facility]* Diagnosis Attention to colostomy (HCC)- Primary Attention to colostomy [facility]* Diagnosis Onset Date Resolution Status [id number] chronic Dyslipidemia chronic 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 Near syncope acute Orthostatic hypotension acut e [facility] Work Phone: Evaluation note* Diagnosis Colostomy complication Unspecified complication of colostomy or enterostomy [facility] Rectal cancer (HCC)- Primary Malignant neoplasm of rectum Elevated CEA Elevated carcinoembryonic antigen [CEA] [facility]* Diagnosis Rectal cancer (HCC) Malignant neoplasm of rectum Elevated CEA Elevated carcinoembryonic antigen [CEA] documented in this encounter [facility] note* Diagnosis Rectal cancer (HCC)- Primary Malignant neoplasm of rectum documented in this encounter [facility] note* Diagnosis Colostomy complication- Primary Unspecified complication of colostomy or enterostomy Peristomal hernia Hernia of unspecified site of abdominal cavity without mention of obstruction or gangrene [facility] Diagnosis Stroke- Primary Unspecified cerebral artery occlusion with cerebral infarction Acute ischemic stroke Unspecified cerebral artery occlusion with cerebral infarction More than 50 percent stenosis of right internal carotid artery Cerebrovascular accident (CVA), unspecified mechanism ELIZALDE (dyspnea on exertion) Other dyspnea and respiratory abnormality Chest discomfort Other chest pain Paroxysmal atrial fibrillation Atrial fibrillation Bilateral carotid artery stenosis Occlusion and stenosis of multiple and bilateral precerebral arteries without mention of cerebral infarction Abnormal EKG Nonspecific abnormal electrocardiogram (ECG) (EKG) NSTEMI (non-ST elevated myocardial infarction) Acute myocardial infarction, subendocardial infarction, episode of care unspecified Type 2 diabetes mellitus with hyperglycemia, with long-term current use of insulin Type 2 Diabetes (A1C > 6.49%) Carotid artery stenosis Occlusion and stenosis of carotid artery without mention of cerebral infarction NSTEMI (non-ST elevated myocardial infarction) Acute myocardial infarction, subendocardial infarction, episode of care unspecified Peristomal hernia Hernia of unspecified site of abdominal cavity without mention of obstruction or gangrene [facility] Diagnosis Urinary retention- Primary Retention of urine, unspecified Frail elderly Senility without mention of psychosis History of CVA in adulthood Unable to walk Difficulty in walking documented in this encounter [facility] note* Diagnosis Postoperative pain- Primary Other acute postoperative pain Rectal cancer (HCC) Malignant neoplasm of rectum Diabetes mellitus type 2, uncontrolled Type II or unspecified type diabetes mellitus without mention of complication, uncontrolled Stenosis of right carotid artery Occlusion and stenosis of carotid artery without mention of cerebral infarction Neuropathy Mononeuritis of unspecified site prison (current) use of 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/antiplatelets Pre-operative examination- Primary Preoperative examination, unspecified Rectal cancer (HCC) Malignant neoplasm of rectum Coronary artery disease involving ambler heart with angina pectoris, unspecified vessel or lesion type (HCC) PAD (peripheral artery disease) ([facility]) Peripheral vascular disease, unspecified Stenosis of right carotid artery Occlusion and stenosis of carotid artery without mention of cerebral infarction Essential hypertension Unspecified essential hypertension Mixed hyperlipidemia History of CVA in adulthood Neuropathy Mononeuritis of unspecified site Gastroesophageal reflux disease, unspecified whether esophagitis present Anxiety and depression Dysthymic disorder Chronic renal impairment, unspecified CKD stage S/P small bowel resection- Primary Other postprocedural status Ischemic colon (HCC) Unspecified vascular insufficiency of intestine Small bowel ischemia (HCC) Unspecified vascular insufficiency of intestine Mesenteric ischemia (HCC) Unspecified vascular insufficiency of intestine Small bowel obstruction (HCC) Unspecified intestinal obstruction Severe protein-calorie malnutrition (HCC) Other severe protein-calorie malnutrition Type 2 diabetes mellitus with hyperglycemia, with long-term current use of insulin (HCC) Anxiety and depression Dysthymic disorder CAD (coronary artery disease) Coronary atherosclerosis of unspecified type of vessel, ambler or graft Colostomy in place ([facility]) Colostomy status History of CVA in adulthood HTN (hypertension) Unspecified essential hypertension Hyperlipidemia Other and unspecified hyperlipidemia ALEJANDRO on CPAP Obstructive sleep apnea (adult) (pediatric) PAD (peripheral artery disease) ([facility]) Peripheral vascular disease, unspecified Acute postoperative pain Other acute postoperative pain On total parenteral nutrition (TPN) Other specified conditions influencing health status Pelvic abscess in male ([facility]) History of rectal cancer Personal history of malignant neoplasm of rectum, rectosigmoid junction, and anus Enterococcal infection Streptococcus infection in conditions classified elsewhere and of unspecified site, group D Ischemia, bowel ([facility]) Unspecified vascular insufficiency of intestine Acute postoperative respiratory insufficiency Other pulmonary insufficiency, not elsewhere classified, following trauma and surgery Electrolyte imbalance Electrolyte and fluid disorders not elsewhere classified Retention of urine- Primary Retention of urine, unspecified Gross hematuria [facility] Postoperative pain- Primary Other acute postoperative pain Rectal cancer (HCC) Malignant neoplasm of rectum Diabetes mellitus type 2, uncontrolled Type II or unspecified type diabetes mellitus without mention of complication, uncontrolled Stenosis of right carotid artery Occlusion and stenosis of carotid artery without mention of cerebral infarction Neuropathy Mononeuritis of unspecified site prison (current) use of 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/antiplatelets Pre-operative examination- Primary Preoperative examination, unspecified Rectal cancer (HCC) Malignant neoplasm of rectum Coronary artery disease involving ambler heart with angina pectoris, unspecified vessel or lesion type ([facility]) PAD (peripheral artery disease) ([facility]) Peripheral vascular disease, unspecified Stenosis of right carotid artery Occlusion and stenosis of carotid artery without mention of cerebral infarction Essential hypertension Unspecified essential hypertension Mixed hyperlipidemia History of CVA in adulthood Neuropathy Mononeuritis of unspecified site Gastroesophageal reflux disease, unspecified whether esophagitis present Anxiety and depression Dysthymic disorder Chronic renal impairment, unspecified CKD stage S/P small bowel resection- Primary Other postprocedural status Ischemic colon (HCC) Unspecified vascular insufficiency of intestine Small bowel ischemia (HCC) Unspecified vascular insufficiency of intestine Mesenteric ischemia (HCC) Unspecified vascular insufficiency of intestine Small bowel obstruction (HCC) Unspecified intestinal obstruction Severe protein-calorie malnutrition (HCC) Other severe protein-calorie malnutrition Type 2 diabetes mellitus with hyperglycemia, with long-term current use of insulin ([facility]) Anxiety and depression Dysthymic disorder CAD (coronary artery disease) Coronary atherosclerosis of unspecified type of vessel, ambler or graft Colostomy in place ([facility]) Colostomy status History of CVA in adulthood HTN (hypertension) Unspecified essential hypertension Hyperlipidemia Other and unspecified hyperlipidemia ALEJANDRO on CPAP Obstructive sleep apnea (adult) (pediatric) PAD (peripheral artery disease) ([facility]) Peripheral vascular disease, unspecified Acute postoperative pain Other acute postoperative pain On total parenteral nutrition (TPN) Other specified conditions influencing health status Pelvic abscess in male ([facility]) History of rectal cancer Personal history of malignant neoplasm of rectum, rectosigmoid junction, and anus Enterococcal infection Streptococcus infection in conditions classified elsewhere and of unspecified site, group D Ischemia, bowel ([facility]) Unspecified vascular insufficiency of intestine Acute postoperative respiratory insufficiency Other pulmonary insufficiency, not elsewhere classified, following trauma and surgery Electrolyte imbalance Electrolyte and fluid disorders not elsewhere classified Urinary tract infection associated with indwelling urethral catheter, initial encounter ([facility]) ([facility])- Primary [facility] Postoperative pain- Primary Other acute postoperative pain Rectal cancer ([facility]) Malignant neoplasm of rectum Diabetes mellitus type 2, uncontrolled Type II or unspecified type diabetes mellitus without mention of complication, uncontrolled Stenosis of right carotid artery Occlusion and stenosis of carotid artery without mention of cerebral infarction Neuropathy Mononeuritis of unspecified site prison (current) use of 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/antiplatelets Pre-operative examination- Primary Preoperative examination, unspecified Rectal cancer ([facility]) Malignant neoplasm of rectum Coronary artery disease involving ambler heart with angina pectoris, unspecified vessel or lesion type ([facility]) PAD (peripheral artery disease) ([facility]) Peripheral vascular disease, unspecified Stenosis of right carotid artery Occlusion and stenosis of carotid artery without mention of cerebral infarction Essential hypertension Unspecified essential hypertension Mixed hyperlipidemia History of CVA in adulthood Neuropathy Mononeuritis of unspecified site Gastroesophageal reflux disease, unspecified whether esophagitis present Anxiety and depression Dysthymic disorder Chronic renal impairment, unspecified CKD stage S/P small bowel resection- Primary Other postprocedural status Ischemic colon (HCC) Unspecified vascular insufficiency of intestine Small bowel ischemia (HCC) Unspecified vascular insufficiency of intestine Mesenteric ischemia (HCC) Unspecified vascular insufficiency of intestine Small bowel obstruction (HCC) Unspecified intestinal obstruction Severe protein-calorie malnutrition (HCC) Other severe protein-calorie malnutrition Type 2 diabetes mellitus with hyperglycemia, with long-term current use of insulin ([facility]) Anxiety and depression Dysthymic disorder CAD (coronary artery disease) Coronary atherosclerosis of unspecified type of vessel, ambler or graft Colostomy in place ([facility]) Colostomy status History of CVA in adulthood HTN (hypertension) Unspecified essential hypertension Hyperlipidemia Other and unspecified hyperlipidemia ALEJANDRO on CPAP Obstructive sleep apnea (adult) (pediatric) PAD (peripheral artery disease) ([facility]) Peripheral vascular disease, unspecified Acute postoperative pain Other acute postoperative pain On total parenteral nutrition (TPN) Other specified conditions influencing health status Pelvic abscess in male ([facility]) History of rectal cancer Personal history of malignant neoplasm of rectum, rectosigmoid junction, and anus Enterococcal infection Streptococcus infection in conditions classified elsewhere and of unspecified site, group D Ischemia, bowel ([facility]) Unspecified vascular insufficiency of intestine Acute postoperative respiratory insufficiency Other pulmonary insufficiency, not elsewhere classified, following trauma and surgery Electrolyte imbalance Electrolyte and fluid disorders not elsewhere classified Retention of urine- Primary Retention of urine, unspecified Urge incontinence [facility] Postoperative pain- Primary Other acute postoperative pain Rectal cancer ([facility]) Malignant neoplasm of rectum Diabetes mellitus type 2, uncontrolled Type II or unspecified type diabetes mellitus without mention of complication, uncontrolled Stenosis of right carotid artery Occlusion and stenosis of carotid artery without mention of cerebral infarction Neuropathy Mononeuritis of unspecified site prison (current) use of 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/antiplatelets Pre-operative examination- Primary Preoperative examination, unspecified Rectal cancer (HCC) Malignant neoplasm of rectum Coronary artery disease involving ambler heart with angina pectoris, unspecified vessel or lesion type ([facility]) PAD (peripheral artery disease) ([facility]) Peripheral vascular disease, unspecified Stenosis of right carotid artery Occlusion and stenosis of carotid artery without mention of cerebral infarction Essential hypertension Unspecified essential hypertension Mixed hyperlipidemia History of CVA in adulthood Neuropathy Mononeuritis of unspecified site Gastroesophageal reflux disease, unspecified whether esophagitis present Anxiety and depression Dysthymic disorder Chronic renal impairment, unspecified CKD stage S/P small bowel resection- Primary Other postprocedural status Ischemic colon (HCC) Unspecified vascular insufficiency of intestine Small bowel ischemia (HCC) Unspecified vascular insufficiency of intestine Mesenteric ischemia (HCC) Unspecified vascular insufficiency of intestine Small bowel obstruction (HCC) Unspecified intestinal obstruction Severe protein-calorie malnutrition (HCC) Other severe protein-calorie malnutrition Type 2 diabetes mellitus with hyperglycemia, with long-term current use of insulin (HCC) Anxiety and depression Dysthymic disorder CAD (coronary artery disease) Coronary atherosclerosis of unspecified type of vessel, ambler or graft Colostomy in place ([facility]) Colostomy status History of CVA in adulthood HTN (hypertension) Unspecified essential hypertension Hyperlipidemia Other and unspecified hyperlipidemia ALEJANDRO on CPAP Obstructive sleep apnea (adult) (pediatric) PAD (peripheral artery disease) ([facility]) Peripheral vascular disease, unspecified Acute postoperative pain Other acute postoperative pain On total parenteral nutrition (TPN) Other specified conditions influencing health status Pelvic abscess in male ([facility]) History of rectal cancer Personal history of malignant neoplasm of rectum, rectosigmoid junction, and anus Enterococcal infection Streptococcus infection in conditions classified elsewhere and of unspecified site, group D Ischemia, bowel ([facility]) Unspecified vascular insufficiency of intestine Acute postoperative respiratory insufficiency Other pulmonary insufficiency, not elsewhere classified, following trauma and surgery Electrolyte imbalance Electrolyte and fluid disorders not elsewhere classified Attention to ileostomy ([facility])- Primary Attention to ileostomy [facility] Postoperative pain- Primary Other acute postoperative pain Rectal cancer ([facility]) Malignant neoplasm of rectum Diabetes mellitus type 2, uncontrolled Type II or unspecified type diabetes mellitus without mention of complication, uncontrolled Stenosis of right carotid artery Occlusion and stenosis of carotid artery without mention of cerebral infarction Neuropathy Mononeuritis of unspecified site 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/antiplatelets Pre-operative examination- Primary Preoperative examination, unspecified Rectal cancer (HCC) Malignant neoplasm of rectum Coronary artery disease involving ambler heart with angina pectoris, unspecified vessel or lesion type ([facility]) PAD (peripheral artery disease) ([facility]) Peripheral vascular disease, unspecified Stenosis of right carotid artery Occlusion and stenosis of carotid artery without mention of cerebral infarction Essential hypertension Unspecified essential hypertension Mixed hyperlipidemia History of CVA in adulthood Neuropathy Mononeuritis of unspecified site Gastroesophageal reflux disease, unspecified whether esophagitis present Anxiety and depression Dysthymic disorder Chronic renal impairment, unspecified CKD stage S/P small bowel resection- Primary Other postprocedural status Ischemic colon ([facility]) Unspecified vascular insufficiency of intestine Small bowel ischemia (HCC) Unspecified vascular insufficiency of intestine Mesenteric ischemia (HCC) Unspecified vascular insufficiency of intestine Small bowel obstruction (HCC) Unspecified intestinal obstruction Severe protein-calorie malnutrition (HCC) Other severe protein-calorie malnutrition Type 2 diabetes mellitus with hyperglycemia, with long-term current use of insulin ([facility]) Anxiety and depression Dysthymic disorder CAD (coronary artery disease) Coronary atherosclerosis of unspecified type of vessel, ambler or graft Colostomy in place ([facility]) Colostomy status History of CVA in adulthood HTN (hypertension) Unspecified essential hypertension Hyperlipidemia Other and unspecified hyperlipidemia ALEJANDRO on CPAP Obstructive sleep apnea (adult) (pediatric) PAD (peripheral artery disease) ([facility]) Peripheral vascular disease, unspecified Acute postoperative pain Other acute postoperative pain On total parenteral nutrition (TPN) Other specified conditions influencing health status Pelvic abscess in male ([facility]) History of rectal cancer Personal history of malignant neoplasm of rectum, rectosigmoid junction, and anus Enterococcal infection Streptococcus infection in conditions classified elsewhere and of unspecified site, group D Ischemia, bowel ([facility]) Unspecified vascular insufficiency of intestine Acute postoperative respiratory insufficiency Other pulmonary insufficiency, not elsewhere classified, following trauma and surgery Electrolyte imbalance Electrolyte and fluid disorders not elsewhere classified Retention of urine- Primary Retention of urine, unspecified [facility] Post[facility] pain- Primary Other acute postoperative pain Rectal cancer ([facility]) Malignant neoplasm of rectum Diabetes mellitus type 2, uncontrolled Type II or unspecified type diabetes mellitus without mention of complication, uncontrolled Stenosis of right carotid artery Occlusion and stenosis of carotid artery without mention of cerebral infarction Neuropathy Mononeuritis of unspecified site 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/antiplatelets Pre-operative examination- Primary Preoperative examination, unspecified Rectal cancer (HCC) Malignant neoplasm of rectum Coronary artery disease involving ambler heart with angina pectoris, unspecified vessel or lesion type ([facility]) PAD (peripheral artery disease) ([facility]) Peripheral vascular disease, unspecified Stenosis of right carotid artery Occlusion and stenosis of carotid artery without mention of cerebral infarction Essential hypertension Unspecified essential hypertension Mixed hyperlipidemia History of CVA in adulthood Neuropathy Mononeuritis of unspecified site Gastroesophageal reflux disease, unspecified whether esophagitis present Anxiety and depression Dysthymic disorder Chronic renal impairment, unspecified CKD stage S/P small bowel resection- Primary Other postprocedural status Ischemic colon (HCC) Unspecified vascular insufficiency of intestine Small bowel ischemia (HCC) Unspecified vascular insufficiency of intestine Mesenteric ischemia (HCC) Unspecified vascular insufficiency of intestine Small bowel obstruction (HCC) Unspecified intestinal obstruction Severe protein-calorie malnutrition (HCC) Other severe protein-calorie malnutrition Type 2 diabetes mellitus with hyperglycemia, with long-term current use of insulin ([facility]) Anxiety and depression Dysthymic disorder CAD (coronary artery disease) Coronary atherosclerosis of unspecified type of vessel, ambler or graft Colostomy in place (HCC) Colostomy status History of CVA in adulthood HTN (hypertension) Unspecified essential hypertension Hyperlipidemia Other and unspecified hyperlipidemia ALEJANDRO on CPAP Obstructive sleep apnea (adult) (pediatric) PAD (peripheral artery disease) ([facility]) Peripheral vascular disease, unspecified Acute postoperative pain Other acute postoperative pain On total parenteral nutrition (TPN) Other specified conditions influencing health status Pelvic abscess in male ([facility]) History of rectal cancer Personal history of malignant neoplasm of rectum, rectosigmoid junction, and anus Enterococcal infection Streptococcus infection in conditions classified elsewhere and of unspecified site, group D Ischemia, bowel ([facility]) Unspecified vascular insufficiency of intestine Acute postoperative respiratory insufficiency Other pulmonary insufficiency, not elsewhere classified, following trauma and surgery Electrolyte imbalance Electrolyte and fluid disorders not elsewhere classified High output ileostomy (HCC)- Primary Other symptoms involving digestive system [facility] Diagnosis Postoperative pain- Primary Other acute postoperative pain Rectal cancer ([facility]) Malignant neoplasm of rectum Diabetes mellitus type 2, uncontrolled Type II or unspecified type diabetes mellitus without mention of complication, uncontrolled Stenosis of right carotid artery Occlusion and stenosis of carotid artery without mention of cerebral infarction Neuropathy Mononeuritis of unspecified site 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/antiplatelets Pre-operative examination- Primary Preoperative examination, unspecified Rectal cancer (HCC) Malignant neoplasm of rectum Coronary artery disease involving ambler heart with angina pectoris, unspecified vessel or lesion type ([facility]) PAD (peripheral artery disease) ([facility]) Peripheral vascular disease, unspecified Stenosis of right carotid artery Occlusion and stenosis of carotid artery without mention of cerebral infarction Essential hypertension Unspecified essential hypertension Mixed hyperlipidemia History of CVA in adulthood Neuropathy Mononeuritis of unspecified site Gastroesophageal reflux disease, unspecified whether esophagitis present Anxiety and depression Dysthymic disorder Chronic renal impairment, unspecified CKD stage S/P small bowel resection- Primary Other postprocedural status Ischemic colon (HCC) Unspecified vascular insufficiency of intestine Small bowel ischemia (HCC) Unspecified vascular insufficiency of intestine Mesenteric ischemia (HCC) Unspecified vascular insufficiency of intestine Small bowel obstruction (HCC) Unspecified intestinal obstruction Severe protein-calorie malnutrition (HCC) Other severe protein-calorie malnutrition Type 2 diabetes mellitus with hyperglycemia, with long-term current use of insulin ([facility]) Anxiety and depression Dysthymic disorder CAD (coronary artery disease) Coronary atherosclerosis of unspecified type of vessel, ambler or graft Colostomy in place (HCC) Colostomy status History of CVA in adulthood HTN (hypertension) Unspecified essential hypertension Hyperlipidemia Other and unspecified hyperlipidemia ALEJANDRO on CPAP Obstructive sleep apnea (adult) (pediatric) PAD (peripheral artery disease) ([facility]) Peripheral vascular disease, unspecified Acute postoperative pain Other acute postoperative pain On total parenteral nutrition (TPN) Other specified conditions influencing health status Pelvic abscess in male ([facility]) History of rectal cancer Personal history of malignant neoplasm of rectum, rectosigmoid junction, and anus Enterococcal infection Streptococcus infection in conditions classified elsewhere and of unspecified site, group D Ischemia, bowel ([facility]) Unspecified vascular insufficiency of intestine Acute postoperative respiratory insufficiency Other pulmonary insufficiency, not elsewhere classified, following trauma and surgery Electrolyte imbalance Electrolyte and fluid disorders not elsewhere classified Retention of urine- Primary Retention of urine, unspecified Retention of urine Retention of urine, unspecified [facility] Diagnosis Postoperative pain- Primary Other acute postoperative pain Rectal cancer ([facility]) Malignant neoplasm of rectum Diabetes mellitus type 2, uncontrolled Type II or unspecified type diabetes mellitus without mention of complication, uncontrolled Stenosis of right carotid artery Occlusion and stenosis of carotid artery without mention of cerebral infarction Neuropathy Mononeuritis of unspecified site prison (current) use of 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/antiplatelets Pre-operative examination- Primary Preoperative examination, unspecified Rectal cancer (HCC) Malignant neoplasm of rectum Coronary artery disease involving ambler heart with angina pectoris, unspecified vessel or lesion type ([facility]) PAD (peripheral artery disease) ([facility]) Peripheral vascular disease, unspecified Stenosis of right carotid artery Occlusion and stenosis of carotid artery without mention of cerebral infarction Essential hypertension Unspecified essential hypertension Mixed hyperlipidemia History of CVA in adulthood Neuropathy Mononeuritis of unspecified site Gastroesophageal reflux disease, unspecified whether esophagitis present Anxiety and depression Dysthymic disorder Chronic renal impairment, unspecified CKD stage S/P small bowel resection- Primary Other postprocedural status Ischemic colon (HCC) Unspecified vascular insufficiency of intestine Small bowel ischemia (HCC) Unspecified vascular insufficiency of intestine Mesenteric ischemia (HCC) Unspecified vascular insufficiency of intestine Small bowel obstruction (HCC) Unspecified intestinal obstruction Severe protein-calorie malnutrition (HCC) Other severe protein-calorie malnutrition Type 2 diabetes mellitus with hyperglycemia, with long-term current use of insulin (HCC) Anxiety and depression Dysthymic disorder CAD (coronary artery disease) Coronary atherosclerosis of unspecified type of vessel, ambler or graft Colostomy in place (HCC) Colostomy status History of CVA in adulthood HTN (hypertension) Unspecified essential hypertension Hyperlipidemia Other and unspecified hyperlipidemia ALEJANDRO on CPAP Obstructive sleep apnea (adult) (pediatric) PAD (peripheral artery disease) ([facility]) Peripheral vascular disease, unspecified Acute postoperative pain Other acute postoperative pain On total parenteral nutrition (TPN) Other specified conditions influencing health status Pelvic abscess in male ([facility]) History of rectal cancer Personal history of malignant neoplasm of rectum, rectosigmoid junction, and anus Enterococcal infection Streptococcus infection in conditions classified elsewhere and of unspecified site, group D Ischemia, bowel ([facility]) Unspecified vascular insufficiency of intestine Acute postoperative respiratory insufficiency Other pulmonary insufficiency, not elsewhere classified, following trauma and surgery Electrolyte imbalance Electrolyte and fluid disorders not elsewhere classified High output ileostomy (HCC)- Primary Other symptoms involving digestive system S/P exploratory laparotomy Other postprocedural status Retention of urine Retention of urine, unspecified [facility] Diagnosis Postoperative pain- Primary Other acute postoperative pain Rectal cancer (HCC) Malignant neoplasm of rectum Diabetes mellitus type 2, uncontrolled Type II or unspecified type diabetes mellitus without mention of complication, uncontrolled Stenosis of right carotid artery Occlusion and stenosis of carotid artery without mention of cerebral infarction Neuropathy Mononeuritis of unspecified site prison (current) use of 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/antiplatelets Pre-operative examination- Primary Preoperative examination, unspecified Rectal cancer (HCC) Malignant neoplasm of rectum Coronary artery disease involving ambler heart with angina pectoris, unspecified vessel or lesion type ([facility]) PAD (peripheral artery disease) ([facility]) Peripheral vascular disease, unspecified Stenosis of right carotid artery Occlusion and stenosis of carotid artery without mention of cerebral infarction Essential hypertension Unspecified essential hypertension Mixed hyperlipidemia History of CVA in adulthood Neuropathy Mononeuritis of unspecified site Gastroesophageal reflux disease, unspecified whether esophagitis present Anxiety and depression Dysthymic disorder Chronic renal impairment, unspecified CKD stage S/P small bowel resection- Primary Other postprocedural status Ischemic colon (HCC) Unspecified vascular insufficiency of intestine Small bowel ischemia (HCC) Unspecified vascular insufficiency of intestine Mesenteric ischemia (HCC) Unspecified vascular insufficiency of intestine Small bowel obstruction (HCC) Unspecified intestinal obstruction Severe protein-calorie malnutrition (HCC) Other severe protein-calorie malnutrition Type 2 diabetes mellitus with hyperglycemia, with long-term current use of insulin (HCC) Anxiety and depression Dysthymic disorder CAD (coronary artery disease) Coronary atherosclerosis of unspecified type of vessel, ambler or graft Colostomy in place (HCC) Colostomy status History of CVA in adulthood HTN (hypertension) Unspecified essential hypertension Hyperlipidemia Other and unspecified hyperlipidemia ALEJANDRO on CPAP Obstructive sleep apnea (adult) (pediatric) PAD (peripheral artery disease) ([facility]) Peripheral vascular disease, unspecified Acute postoperative pain Other acute postoperative pain On total parenteral nutrition (TPN) Other specified conditions influencing health status Pelvic abscess in male ([facility]) History of rectal cancer Personal history of malignant neoplasm of rectum, rectosigmoid junction, and anus Enterococcal infection Streptococcus infection in conditions classified elsewhere and of unspecified site, group D Ischemia, bowel ([facility]) Unspecified vascular insufficiency of intestine Acute postoperative respiratory insufficiency Other pulmonary insufficiency, not elsewhere classified, following trauma and surgery Electrolyte imbalance Electrolyte and fluid disorders not elsewhere classified High output ileostomy ([facility])- Primary Other symptoms involving digestive system Retention of urine Retention of urine, unspecified [facility] Diagnosis Postoperative pain- Primary Other acute postoperative pain Rectal cancer (HCC) Malignant neoplasm of rectum Diabetes mellitus type 2, uncontrolled Type II or unspecified type diabetes mellitus without mention of complication, uncontrolled Stenosis of right carotid artery Occlusion and stenosis of carotid artery without mention of cerebral infarction Neuropathy Mononeuritis of unspecified site 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/antiplatelets Pre-operative examination- Primary Preoperative examination, unspecified Rectal cancer (HCC) Malignant neoplasm of rectum Coronary artery disease involving ambler heart with angina pectoris, unspecified vessel or lesion type ([facility]) PAD (peripheral artery disease) ([facility]) Peripheral vascular disease, unspecified Stenosis of right carotid artery Occlusion and stenosis of carotid artery without mention of cerebral infarction Essential hypertension Unspecified essential hypertension Mixed hyperlipidemia History of CVA in adulthood Neuropathy Mononeuritis of unspecified site Gastroesophageal reflux disease, unspecified whether esophagitis present Anxiety and depression Dysthymic disorder Chronic renal impairment, unspecified CKD stage S/P small bowel resection- Primary Other postprocedural status Ischemic colon (HCC) Unspecified vascular insufficiency of intestine Small bowel ischemia (HCC) Unspecified vascular insufficiency of intestine Mesenteric ischemia (HCC) Unspecified vascular insufficiency of intestine Small bowel obstruction (HCC) Unspecified intestinal obstruction Severe protein-calorie malnutrition (HCC) Other severe protein-calorie malnutrition Type 2 diabetes mellitus with hyperglycemia, with long-term current use of insulin (HCC) Anxiety and depression Dysthymic disorder CAD (coronary artery disease) Coronary atherosclerosis of unspecified type of vessel, ambler or graft Colostomy in place (HCC) Colostomy status History of CVA in adulthood HTN (hypertension) Unspecified essential hypertension Hyperlipidemia Other and unspecified hyperlipidemia ALEJANDRO on CPAP Obstructive sleep apnea (adult) (pediatric) PAD (peripheral artery disease) ([facility]) Peripheral vascular disease, unspecified Acute postoperative pain Other acute postoperative pain On total parenteral nutrition (TPN) Other specified conditions influencing health status Pelvic abscess in male (HCC) History of rectal cancer Personal history of malignant neoplasm of rectum, rectosigmoid junction, and anus Enterococcal infection Streptococcus infection in conditions classified elsewhere and of unspecified site, group D Ischemia, bowel (HCC) Unspecified vascular insufficiency of intestine Acute postoperative respiratory insufficiency Other pulmonary insufficiency, not elsewhere classified, following trauma and surgery Electrolyte imbalance Electrolyte and fluid disorders not elsewhere classified History of rectal cancer- Primary Personal history of malignant neoplasm of rectum, rectosigmoid junction, and anus [facility] Diagnosis Postoperative pain- Primary Other acute postoperative pain Rectal cancer (HCC) Malignant neoplasm of rectum Diabetes mellitus type 2, uncontrolled Type II or unspecified type diabetes mellitus without mention of complication, uncontrolled Stenosis of right carotid artery Occlusion and stenosis of carotid artery without mention of cerebral infarction Neuropathy Mononeuritis of unspecified site prison (current) use of 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/antiplatelets Pre-operative examination- Primary Preoperative examination, unspecified Rectal cancer (HCC) Malignant neoplasm of rectum Coronary artery disease involving ambler heart with angina pectoris, unspecified vessel or lesion type ([facility]) PAD (peripheral artery disease) ([facility]) Peripheral vascular disease, unspecified Stenosis of right carotid artery Occlusion and stenosis of carotid artery without mention of cerebral infarction Essential hypertension Unspecified essential hypertension Mixed hyperlipidemia History of CVA in adulthood Neuropathy Mononeuritis of unspecified site Gastroesophageal reflux disease, unspecified whether esophagitis present Anxiety and depression Dysthymic disorder Chronic renal impairment, unspecified CKD stage S/P small bowel resection- Primary Other postprocedural status Ischemic colon (HCC) Unspecified vascular insufficiency of intestine Small bowel ischemia (HCC) Unspecified vascular insufficiency of intestine Mesenteric ischemia (HCC) Unspecified vascular insufficiency of intestine Small bowel obstruction (HCC) Unspecified intestinal obstruction Severe protein-calorie malnutrition (HCC) Other severe protein-calorie malnutrition Type 2 diabetes mellitus with hyperglycemia, with long-term current use of insulin (HCC) Anxiety and depression Dysthymic disorder CAD (coronary artery disease) Coronary atherosclerosis of unspecified type of vessel, ambler or graft Colostomy in place ([facility]) Colostomy status History of CVA in adulthood HTN (hypertension) Unspecified essential hypertension Hyperlipidemia Other and unspecified hyperlipidemia ALEJANDRO on CPAP Obstructive sleep apnea (adult) (pediatric) PAD (peripheral artery disease) ([facility]) Peripheral vascular disease, unspecified Acute postoperative pain Other acute postoperative pain On total parenteral nutrition (TPN) Other specified conditions influencing health status Pelvic abscess in male ([facility]) History of rectal cancer Personal history of malignant neoplasm of rectum, rectosigmoid junction, and anus Enterococcal infection Streptococcus infection in conditions classified elsewhere and of unspecified site, group D Ischemia, bowel ([facility]) Unspecified vascular insufficiency of intestine Acute postoperative respiratory insufficiency Other pulmonary insufficiency, not elsewhere classified, following trauma and surgery Electrolyte imbalance Electrolyte and fluid disorders not elsewhere classified Chronic suprapubic catheter ([facility])- Primary Unspecified cystostomy status [facility] Diagnosis Postoperative pain- Primary Other acute postoperative pain Rectal cancer (HCC) Malignant neoplasm of rectum Diabetes mellitus type 2, uncontrolled Type II or unspecified type diabetes mellitus without mention of complication, uncontrolled Stenosis of right carotid artery Occlusion and stenosis of carotid artery without mention of cerebral infarction Neuropathy Mononeuritis of unspecified site 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/antiplatelets Pre-operative examination- Primary Preoperative examination, unspecified Rectal cancer (HCC) Malignant neoplasm of rectum Coronary artery disease involving ambler heart with angina pectoris, unspecified vessel or lesion type PAD (peripheral artery disease) Peripheral vascular disease, unspecified Stenosis of right carotid artery Occlusion and stenosis of carotid artery without mention of cerebral infarction Essential hypertension Unspecified essential hypertension Mixed hyperlipidemia History of CVA in adulthood Neuropathy Mononeuritis of unspecified site Gastroesophageal reflux disease, unspecified whether esophagitis present Anxiety and depression Dysthymic disorder Chronic renal impairment, unspecified CKD stage S/P small bowel resection- Primary Other postprocedural status Ischemic colon (HCC) Unspecified vascular insufficiency of intestine Small bowel ischemia (HCC) Unspecified vascular insufficiency of intestine Mesenteric ischemia (HCC) Unspecified vascular insufficiency of intestine Small bowel obstruction (HCC) Unspecified intestinal obstruction Severe protein-calorie malnutrition (HCC) Other severe protein-calorie malnutrition Type 2 diabetes mellitus with hyperglycemia, with long-term current use of insulin (HCC) Anxiety and depression Dysthymic disorder CAD (coronary artery disease) Coronary atherosclerosis of unspecified type of vessel, ambler or graft Colostomy in place (HCC) Colostomy status History of CVA in adulthood HTN (hypertension) Unspecified essential hypertension Hyperlipidemia Other and unspecified hyperlipidemia ALEJANDRO on CPAP Obstructive sleep apnea (adult) (pediatric) PAD (peripheral artery disease) Peripheral vascular disease, unspecified Acute postoperative pain Other acute postoperative pain On total parenteral nutrition (TPN) Other specified conditions influencing health status Pelvic abscess in male ([facility]) History of rectal cancer Personal history of malignant neoplasm of rectum, rectosigmoid junction, and anus Enterococcal infection Streptococcus infection in conditions classified elsewhere and of unspecified site, group D Ischemia, bowel ([facility]) Unspecified vascular insufficiency of intestine Acute postoperative respiratory insufficiency Other pulmonary insufficiency, not elsewhere classified, following trauma and surgery Electrolyte imbalance Electrolyte and fluid disorders not elsewhere classified Hyperkalemia Hyperpotassemia [facility] Diagnosis Postoperative pain- Primary Other acute postoperative pain Rectal cancer (HCC) Malignant neoplasm of rectum Diabetes mellitus type 2, uncontrolled Type II or unspecified type diabetes mellitus without mention of complication, uncontrolled Stenosis of right carotid artery Occlusion and stenosis of carotid artery without mention of cerebral infarction Neuropathy Mononeuritis of unspecified site 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/antiplatelets Pre-operative examination- Primary Preoperative examination, unspecified Rectal cancer (HCC) Malignant neoplasm of rectum Coronary artery disease involving ambler heart with angina pectoris, unspecified vessel or lesion type PAD (peripheral artery disease) Peripheral vascular disease, unspecified Stenosis of right carotid artery Occlusion and stenosis of carotid artery without mention of cerebral infarction Essential hypertension Unspecified essential hypertension Mixed hyperlipidemia History of CVA in adulthood Neuropathy Mononeuritis of unspecified site Gastroesophageal reflux disease, unspecified whether esophagitis present Anxiety and depression Dysthymic disorder Chronic renal impairment, unspecified CKD stage S/P small bowel resection- Primary Other postprocedural status Ischemic colon (HCC) Unspecified vascular insufficiency of intestine Small bowel ischemia (HCC) Unspecified vascular insufficiency of intestine Mesenteric ischemia (HCC) Unspecified vascular insufficiency of intestine Small bowel obstruction (HCC) Unspecified intestinal obstruction Severe protein-calorie malnutrition (HCC) Other severe protein-calorie malnutrition Type 2 diabetes mellitus with hyperglycemia, with long-term current use of insulin (HCC) Anxiety and depression Dysthymic disorder CAD (coronary artery disease) Coronary atherosclerosis of unspecified type of vessel, ambler or graft Colostomy in place (HCC) Colostomy status History of CVA in adulthood HTN (hypertension) Unspecified essential hypertension Hyperlipidemia Other and unspecified hyperlipidemia ALEJANDRO on CPAP Obstructive sleep apnea (adult) (pediatric) PAD (peripheral artery disease) Peripheral vascular disease, unspecified Acute postoperative pain Other acute postoperative pain On total parenteral nutrition (TPN) Other specified conditions influencing health status Pelvic abscess in male (HCC) History of rectal cancer Personal history of malignant neoplasm of rectum, rectosigmoid junction, and anus Enterococcal infection Streptococcus infection in conditions classified elsewhere and of unspecified site, group D Ischemia, bowel (HCC) Unspecified vascular insufficiency of intestine Acute postoperative respiratory insufficiency Other pulmonary insufficiency, not elsewhere classified, following trauma and surgery Electrolyte imbalance Electrolyte and fluid disorders not elsewhere classified Suprapubic catheter (HCC)- Primary Other cystostomy status Chronic retention of urine Other specified retention of urine Type 2 diabetes mellitus with hyperglycemia, with long-term current use of insulin ([facility]) [facility] Author Matt Penny [facility] March 10, 2023 5:27pm Note Date/Time March 10, 2023 4:4 8pm [facility] Medical Records Department [address] [place] [address] H&P Exam - Hospitalist 03/10/23 1644 MR#: [id number] Acct: [id number] Name: YONY VEGA Rep #:[id number] : 1955 67 From: Matt Simon PCP: Dr. Kendy Modi MD Status:ADM CRICKET Location: [place] [address] HPI - General General Date of Admission: 03/10/23 Date of Service: 03/10/23 Chief Complaint: Near syncope 2 episodes today. HPI Narrative YONY VEGA, is a 67 M was sent to ED from wound nurse Ai after he had syncopal episode while changing the stoma dressing. Before that, he woke up in the morning feeling dizzy and lightheaded while walking to bathroom and then fell in the bathroom hitting the back of the head. He states he did not passed out. Then he came to see Ai, wound nurse for change his colostomy dressing. While trying to stand up after laying down position for stoma dressing, he felt dizzy, his body got stiff and felt black before eyes but did not pass out. Ai asked is he okay but he did not respond therefore sent to ED. Denies chest pain pressure tightness or palpitation. He had similar episode in the past but does not remember well. In ED, orthostatic vitals shows a drop in blood pressure from systolic 137-88 diastolic from 66-49 from supine to standing position. But his heart rate did not change. Second time his blood pressure was 95/52 on seven-point and increased to 138/57 with standing. His baseline blood pressure is 127/63 heart rate in 70s. Patient is having second unit of normal saline bolus running. Twelve-lead EKG shows normal sinus rhythm 71 beats 1, QTc [address]- T changes. His previous EKG was also normal in September 2021. Patient has history of coronary artery disease status post CABG and follows Dr. Smith and Vishal gonzalez NP, last clinic visit January 2023 [facility] Medical History Anxiety disorder Arthritis 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 Cancer Cardiology follow-up encounter Carotid artery disease Colorectal cancer CPAP (continuous positive airway pressure) dependence CVA (cerebral vascular accident) Depression Diabetic neuropathy Dietary restriction Dyslipidemia Dysphagia Essential hypertension Gastric reflux GERD (gastroesophageal reflux disease) High cholesterol History of echocardiogram History of heart attack History of pain when walking History of stress test HTN (hypertension) Injury of back Injury of head and neck 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 Leg cramps Loss of hearing Non-smoker Obstructive sleep apnea ALEJANDRO (obstructive sleep apnea) Peripheral vascular occlusive disease Restless legs Restrictive lung disease Shortness of breath on exertion Syncope Type 2 diabetes mellitus Walker as ambulation aid Wears glasses Home Medications aspirin 81 mg chewable tablet 81 mg PO DAILY heart health 03/20/16 [History Last Taken 03/10/23] duloxetine 60 mg capsule,delayed release 60 mg PO DAILY depression 03/20/16 [History Last Taken 03/10/23] omeprazole 40 mg capsule,delayed release 40 mg PO DAILY gerd 01/09/20 [History Last Taken 03/10/23] fluticasone propionate 50 mcg/actuation nasal spray,suspension (Flonase Allergy Relief) 1 spray intranasal DAILY PRN allergies 12/17/20 [History Last Taken 09/22/21] gabapentin 300 mg capsule 300 mg PO DAILY neuropathy 12/17/20 [History Last Taken 03/10/23] insulin detemir U-100 100 unit/mL (3 mL) subcutaneous pen 50 unit subcut BID blood sugar 12/17/20 [History Last Taken 03/10/23] insulin lispro 100 unit/mL subcutaneous pen (Humalog KwikPen (U-100) Insulin) See Rx Instructions subcut .COMPLEX diabetes 09/26/21 [History Last Taken 03/10/23] nitroglycerin 0.4 mg sublingual tablet 0.4 mg sublingual Q5M PRN chest pain #25 tabs 10/15/21 [Rx Last Taken Unknown] lisinopril 5 mg tablet 5 mg PO DAILY blood pressure #90 tabs 09/26/22 [Rx Last Taken 03/10/23] carvedilol 3.125 mg tablet 3.125 mg PO BID heart #180 tabs 10/03/22 [Rx Last Taken 03/10/23] clopidogrel 75 mg tablet 75 mg PO DAILY blood thinner #90 tabs 10/10/22 [Rx Last Taken 03/10/23] amlodipine 5 mg tablet (Norvasc) 5 mg PO DAILY blood pressure #90 tabs 12/28/22 [Rx Last Taken 03/10/23] rosuvastatin 20 mg tablet 20 mg PO QHS cholesterol #90 tabs 02/13/23 [Rx Last Taken 03/10/23] magnesium oxide 400 mg PO BID supplement 03/10/23 [History Last Taken 03/10/23] peg 400-propylene glycol (PF) 0.4 %-0.3 % eye drops in a dropperette (Lubricant Eye (PG-PEG 400) (PF)) 1 drp EACH EYE DAILY PRN dry eye(s) 03/10/23 [History Last Taken Unknown] Allergy/AdvReac Type Severity Reaction Status Date / Time No Known Allergies Allergy Verified 03/10/23 11:52 Family History Father CAD (coronary artery disease) Hypertension Cancer leukemia Diabetes Heart disease High cholesterol Mother CVA (cerebral vascular accident) Diabetes Breast cancer Brother Diabetes Surgical History Excision Max.Zygoma Face Tumor H/O coronary artery bypass surgery (05/30/08) History of bilateral cataract extraction History of coronary artery stent placement (01/02/15) History of eye surgery History of herniorrhaphy History of left heart catheterization (LHC) (~01/22/15) History of right and left heart catheterization (LHC) (~12/25/14) History of right-sided carotid endarterectomy History of tonsillectomy PTCA Left Anterior Tibial and Paroneal Artery Social History Smoking Status: Never smoker alcohol intake: never substance use type: does not use caffeine: Yes what type of physical activity do you participate in: none ROS ROS Narrative Constitutional: Denies acute fatigue and weakness. No fever. HEENT: No recent URI symptoms reports systems reviewed and no addt'l complaints,except as documented Respiratory/Chest: No acute shortness of breath or respiratory distress or wheezing. CVS: No chest pain pressure or tightness. Gastrointestinal: Denies coffee ground emesis, hematemesis or vomiting. Has colostomy Genitourinary: Denies burning urination or new urinary tract symptoms Musculoskeletal: Denies acute joint pain or limited range of motion. No acute injury Neurologic: Denies seizure-like symptoms. skin: No ulcer. No rash Endocrinology: Reports systems reviewed and no addt'l complaints, except as documented Hematologic/Lymphatic: Reports systems reviewed and no addt'l complaints, exceptas documented Rest 14 ROS are negative except as mentioned in HPI Vital Signs Vital Signs Vital Signs: 03/10/23 11:53 03/10/23 11:52 03/10/23 13:52 Temperature 98 F Temperature Source Temporal Pulse Rate 72 75 Pulse Rate [Lying] Pulse Rate [Sitting (for 1 minute prior to obtaining)] Pulse Rate [Standing (for 1 minute prior to obtaining)] Respiratory Rate 14 14 Respiratory Effort Normal Respiratory Pattern Normal Blood Pressure 127/63 H 137/66 H Blood Pressure [Lying] Blood Pressure [Sitting (for 1 minute prior to obtaining)] Blood Pressure [Standing (for 1 minute prior to obtaining)] Blood Pressure Mean 84 89 Blood Pressure Mean [Lying] Blood Pressure Mean [Sitting (for 1 minute prior to obtaining)] Blood Pressure Mean [Standing (for 1 minute prior to obtaining)] Pulse Ox 96 98 Oxygen Delivery Method Room Air Room Air 03/10/23 14:21 03/10/23 15:00 03/10/23 16:25 Temperature Temperature Source Pulse Rate 71 Pulse Rate [Lying] 75 72 Pulse Rate [Sitting (for 1 minute prior to obtaining)] 72 73 Pulse Rate [Standing (for 1 minute prior to obtaining)] 72 73 Respiratory Rate 15 Respiratory Effort Respiratory Pattern Blood Pressure 148/65 H Blood Pressure [Lying] 137/66 H 138/57 H Blood Pressure [Sitting (for 1 minute prior to obtaining)] 125/63 H 127/49 H Blood Pressure [Standing (for 1 minute prior to obtaining)] 88/49 L 95/52 L Blood Pressure Mean 92 Blood Pressure Mean [Lying] 89 84 Blood Pressure Mean [Sitting (for 1 minute prior to obtaining)] 83 75 Blood Pressure Mean [Standing (for 1 minute prior to obtaining)] 62 66 Pulse Ox 98 Oxygen Delivery Method Room Air 03/10/23 16:40 Temperature Temperature Source Pulse Rate 72 Pulse Rate [Lying] Pulse Rate [Sitting (for 1 minute prior to obtaining)] Pulse Rate [Standing (for 1 minute prior to obtaining)] Respiratory Rate 16 Respiratory Effort Respiratory Pattern Blood Pressure 141/56 H Blood Pressure [Lying] Blood Pressure [Sitting (for 1 minute prior to obtaining)] Blood Pressure [Standing (for 1 minute prior to obtaining)] Blood Pressure Mean 84 Blood Pressure Mean [Lying] Blood Pressure Mean [Sitting (for 1 minute prior to obtaining)] Blood Pressure Mean [Standing (for 1 minute prior to obtaining)] Pulse Ox 95 Oxygen Delivery Method Room Air Weight Weight: 156 lb 4.924 oz Body Mass Index (BMI) 24.5 Physical Exam Narrative General: Alert, Oriented x3, Cooperative HEENT: Atraumatic, PERRLA, EOMI, Normocephalic Oral: Oral mucosa dry. No Gingival or Mucosal Lesions/ Ulcerations Neck: Supple, No JVD, Negative Carotid Bruits Lungs: Air entry diminished in bilateral lung bases. No crepitation/rhonchi Cardiovascular: Regular rate, Regular Rhythm, Normal S1, Normal S2, No murmurs Abdomen: Bowel Sounds Present, Soft, Non Tender, Non-Distended. Left lower colostomy which is prolapsed and herniated but no active bleeding or ulcer : No renal angle tenderness. No suprapubic tenderness. Extremities: No edema, Capillary Refill Less than 3 Seconds Skin: No rashes, No breakdown Musculoskeletal: No Tenderness to Palpation of Joints or Extremities. ROM intact. Neurological: Cranial nerves II-XII grossly intact, DTR 2+/4. No acute focal neurological deficit. Psych/Mental Status: Flat affect. Results Lab / Micro Data 03/10/23 12:10 03/10/23 12:10 Labs: Laboratory Results - last 24 hr 03/10/23 12:10: WBC 8.1, RBC 4.64, Hgb 13.0, Hct 40.6, MCV 87.5, MCH 28.0, MCHC 32.0, RDW Std Deviation 45.3 H, RDW Coeff of Maia 14.2, Plt Count 295, MPV 9.4, Immature Gran % (Auto) 0.500, Neut % (Auto) 79.4 H, Lymph % (Auto) 10.6 L, Ford %(Auto) 8.5, Eos % (Auto) 0.5, Baso % (Auto) 0.5, Absolute Neuts (auto) 6.4, Absolute Lymphs (auto) 0.86, Nucleated RBC % 0, Sodium 139, Potassium 4.3, Chloride 104, Carbon Dioxide 31.0, Anion Gap 4 L, BUN 20 H, Creatinine 1.16, Estim Creat Clear Calc 59.36, Est GFR (MDRD) Af Amer 81, Est GFR (MDRD) Non-Af 67, BUN/Creatinine Ratio 17.2, Glucose 141 H, Calcium 8.8, Troponin I High Sens 12 03/10/23 14:22: Urine Color Yellow, Urine Clarity Clear, Urine pH 6.0, Ur Specific [place] 1.015, Urine Protein 15 H, Urine Glucose (UA) 50 H, Urine Ketones Negative, Urine Occult Blood Negative, Urine Nitrite Negative, Urine Bilirubin Negative, Urine Urobilinogen Normal, Ur Leukocyte Esterase Negative, Urine RBC 0 SEEN, Urine WBC 0 SEEN, Ur Squamous Epith Cells 0 SEEN, Urine Bacteria 0 SEEN, Urine Mucus 0 SEEN Radiology Impression Brain CT 03/10/23 12:11 IMPRESSION: Chronic involutional changes of the brain. Stable lacunar infarcts involving both basal ganglia. Electronically Signed: Navdeep Gonzales MD at 12:48 EDT , Chest X-Ray 03/10/23 12:31 IMPRESSION: Cardiomegaly, sternotomy wires, aortic tortuosity and mild hyperinflation. No active or acute cardiopulmonary disease. Electronically Signed: Amilcar Siddiqui MD at 12:44 EDT , Assessment & Plan Assessment/Plan (1) Near syncope: (2) Orthostatic hypotension: PLAN: Plan This 67-year-old gentleman is being admitted for near syncope x2 today 1. Near syncope associated with orthostatic hypotension probably due to antihypertensive medications: Patient is being admitted in PCU. Patient on amlodipine 5 mg daily, carvedilol 3.125 mg twice daily, lisinopril 5 mg daily, gabapentin and duloxetine . All antihypertensive medications including decreased dose of gabapentin. Twelve-lead EKG and troponin normal. Patient denies history of fluid loss through colostomy or nausea or vomiting therefore Isuspect mostly due to antihypertensive medications. 2. History of non-STEMI and coronary artery disease status post CABG and hypertension and dyslipidemia: Patient last clinic visit was in January 2023. [place] in September 2021, reported EF 55%, stage II diastolic function, trivial TR,PASP 40 mmHg aortic sclerosis but no aortic stenosis or AI overall consistent with chronic HFpEF Fasting profile in October 2022, LDL 94, HDL 30 and TG 196. Patient was last admitted in September 2021 for altered mental status and acute NSTEMI. Last pharmacological nuclear stress in October 2021 reported normal. Patient does not have acute chest pain or pressure or shortness of breath. 3. Diabetes mellitus type 2: Glucose is controlled. 141 in BMP. Long-acting and short-acting insulin decreased with holding parameters. Accu-Cheks insulin coverage Humalog sliding scale. 4. DVT prophylaxis heparin 5000 subcutaneous every 8 hourly. Living will/advanced directive/end of life care: Patient does not have living will or advanced directive. He does not have major power of workers compensation defense attorney for health. His is next of kin. After discussion of benefits/risks proceduresinvolved with full code, DNR CC arrest and DNR CC, the patient opted for full code. Patient does want artificial life support including intubation, tube feed, ventilator and/chest compression, central venous catheter, vasopressor and DC shock if needed Total time spent in [id number] encounter in discussion of advanced directive 17 minutes. Laboratory Results 03/10/23 12:10: WBC 8.1, RBC 4.64, Hgb 13.0, Hct 40.6, MCV 87.5, MCH 28.0, MCHC 32.0, RDW Std Deviation 45.3 H, RDW Coeff of Maia 14.2, Plt Count 295, MPV 9.4, Immature Gran % (Auto) 0.500, Neut % (Auto) 79.4 H, Lymph % (Auto) 10.6 L, Ford % (Auto) 8.5, Eos % (Auto) 0.5, Baso % (Auto) 0.5, Absolute Neuts (auto) 6.4, Absolute Lymphs (auto) 0.86, Nucleated RBC % 0, Sodium 139, Potassium 4.3, Chloride 104, Carbon Dioxide 31.0, Anion Gap 4 L, BUN20 H, Creatinine 1.16, Estim Creat Clear Calc 59.36, Est GFR (MDRD) Af Amer 81, Est GFR (MDRD) Non-Af 67, BUN/Creatinine Ratio 17.2, Glucose 141 H, Calcium 8.8,Phosphorus Pending, Magnesium Pending, Troponin I High Sens 12 03/10/23 14:22: Urine Color Yellow, Urine Clarity Clear, Urine pH 6.0, Ur Specific [place] 1.015, Urine Protein 15 H, Urine Glucose (UA) 50 H, Urine Ketones Negative, Urine Occult Blood Negative, Urine Nitrite Negative, Urine Bilirubin Negative, Urine Urobilinogen Normal, Ur Leukocyte Esterase Negative, Urine RBC 0 SEEN, Urine WBC 0 SEEN, Ur Squamous Epith Cells 0 SEEN, Urine Bacteria 0 SEEN, Urine Mucus 0 SEEN Charges/Coding Visit Charges Inpatient E&M: 06070 Init Hosp L3 Procedures Hospitalists Procedures: 60226 Advncd Care Plan 30 Min 03/10/23 1727 <Electronically signed by Matt Penny MD> Cosigner Signature (if applicable): CC: Dr. Kendy Modi MD; Dr. Matt Penny MD~ Signed [facility] Work Phone: Reason for referral (narrative)* Consultation (Routine) - New Request Specialty Diagnoses / Procedures Referred By Contac t Referred To Contact PreOp Diagnoses Colostomy complication Peristomal hernia Angeli Zarate DO [address] [place] [address] [place] [phone] Referral ID Status Reason Start Date Expiration Date V isits Requested Visits Authorized [id number] New Request 07/19/2023 08/12/2024 1 1 * Consultation (Routine) - New Request Specialty Diagnoses / Procedures Referred By Contac t Referred To Contact General Surgery Diagnoses Colostomy complication Peristomal hernia Angeli Zarate DO [address] [place] [phone] Referral ID Status Reason Start Date Expiration Date V isits Requested Visits Authorized [id number] New Request 07/19/2023 08/12/2024 1 1 [facility] for referral (narrative)* (Routine) Specialty Diagnoses / Procedures Referred By Contac t Referred To Contact [facility] [address] [place] [address] Referral ID Status Reason Start Date Expiration Date Visits Re quested Visits Authorized * (Routine) Specialty Diagnoses / Procedures Referred By Contac t Referred To Contact [facility] [address] [place] [phone] Referral ID Status Reason Start Date Expiration Date Visits Re quested Visits Authorized * Transfer of Care (Routine) - New Request Specialty Diagnoses / Procedures Referred By Contac t Referred To Contact Social Work Diagnoses Acute ischemic stroke NSTEMI (non-ST elevated myocardial infarction) Jaleel Ochoa APRN-CNP [address] [place] [id number] Referral ID Status Reason Start Date Expiration Date V isits Requested Visits Authorized [id number] New Request 11/21/2023 12/15/2024 1 1 * Radiology (Routine) - New Request Specialty Diagnoses / Procedures Referred By Conttyrel t Referred To Contact Diagnoses Paroxysmal atrial fibrillation Procedures MOBILE CARDIAC TELEMETRY Jaleel Ochoa APRN-CNP [address] [place] [id number] Referral ID Status Reason Start Date Expiration Date V isits Requested Visits Authorized [id number] New Request 11/17/2023 12/11/2024 1 1 * Consultation (Routine) - New Request Specialty Diagnoses / Procedures Referred By Conttyrel t Referred To Contact Cardiovascular Medicine Diagnoses Paroxysmal atrial fibrillation Jaleel Ochoa APRN-CNP [address] [place] [id number] Referral ID Status Reason Start Date Expiration Date V isits Requested Visits Authorized [id number] New Request 11/17/2023 12/11/2024 1 1 Scheduling Instructions Please schedule this patient in the Department of Cardiology. Please scheduled for visit with 1st available provider in 4-6 weeks. Mobile cardiac telemetry ordered. * Radiology (Routine) - Authorized - [facility] Specialty Diagnoses / Procedures Referred By Contac t Referred To Contact Peripheral Vascular Diagnoses Bilateral carotid artery stenosis Procedures VASC DUPLEX CAROTID BILATERAL VT DUPLEX SCAN EXTRACRANIAL,BILJaleel Perdomo APRN-CNP [address] [place] [id number] Vascular Surg Ultrasound [place] [address] [place] [address] Referral ID Status Reason Start Date Expiration Date Visits Requested Visits Authorized [id number] Authorized - 11/17/2023 12/11/2024 1 1 * Consultation (Routine) - New Request Specialty Diagnoses / Procedures Referred By Contac t Referred To Contact Neurology Diagnoses Cerebrovascular accident (CVA), unspecified mechanism Hitesh Montanez APRN-CNP [address] [place] [address] Referral ID Status Reason Start Date Expiration Date V isits Requested Visits Authorized [id number] New Request 11/17/2023 12/11/2024 1 1 * Unlisted Procedure Code (Routine) - New Request Specialty Diagnoses / Procedures Referred By Contac t Referred To Contact Procedures NO MECHANICAL DVT PROPHYLAXIS Boom Ford MD [address] [place] [address] Referral ID Status Reason Start Date Expiration Date V isits Requested Visits Authorized [id number] New Request 11/16/2023 12/10/2024 1 1 * Unlisted Procedure Code (Routine) - New Request Specialty Diagnoses / Procedures Referred By Contac t Referred To Contact Procedures LOW RISK - NO PHARMACOLOGICAL DVT PROPHYLAXIS Boom Ford MD [address] [place] [address] Referral ID Status Reason Start Date Expiration Date V isits Requested Visits Authorized [id number] New Request 11/16/2023 12/10/2024 1 1 * Unlisted Procedure Code (Routine) - New Request Specialty Diagnoses / Procedures Referred By Contac t Referred To Contact Procedures DVT/VTE RISK ASSESSMENT Boom Ford MD [address] [place] [address] Referral ID Status Reason Start Date Expiration Date V isits Requested Visits Authorized [id number] New Request 11/16/2023 12/10/2024 1 1 * Unlisted Procedure Code (Routine) - New Request Specialty Diagnoses / Procedures Referred By Contac t Referred To Contact Procedures NO MECHANICAL DVT PROPHYLAXIS Boom Ford MD [address] [place] [address] Referral ID Status Reason Start Date Expiration Date V isits Requested Visits Authorized [id number] New Request 11/16/2023 12/10/2024 1 1 * Radiology (Routine) - New Request Specialty Diagnoses / Procedures Referred By Contac t Referred To Contact Procedures ECG Joselito Mora MD [address] [place] [address] Referral ID Status Reason Start Date Expiration Date V isits Requested Visits Authorized [id number] New Request 11/12/2023 12/06/2024 1 1 * (Routine) Specialty Diagnoses / Procedures Referred By Contac t Referred To Contact [address] [place] [address] Referral ID Status Reason Start Date Expiration Date Visits Re quested Visits Authorized * Radiology (Emergency) - New Request Specialty Diagnoses / Procedures Referred By Araceli gama Referred To Contact Procedures ECG Dalton Mandujano MD [address] [place] [phone] Referral ID Status Reason Start Date Expiration Date V isits Requested Visits Authorized [id number] New Request 11/12/2023 12/06/2024 1 1 [facility] Outpatient Procedure (Routine) - New Request Specialty Diagnoses / Procedures Referred By Araceli gama Referred To Contact [facility] Diagnoses Urinary retention Procedures URODYNAMICS ISAEL POST-VOIDING RESIDUAL URINE&/BLADDER CAP Kenzie Drew APRN.ARTI, [address] [place] [address] [facility] [facility] [address] [place] [address] Referral ID Status Reason Start Date Expiration Date Visits Requested Visits Authorized [id number] New Request Auto-Generat ed Referral 03/12/2024 03/12/2025 1 1 [facility] for visit Narrative* Diagnostic Procedure Only (Routine) - Closed Specialty Diagnoses / Procedures Referred By Araceli gama Referred To Contact Radiology / RADIO MRI [facility] MOB Diagnoses Rectal cancer (HCC) [C20] Abnormal CT of the abdomen [R93.5] Procedures MRI ABDOMEN W/O & W/CONTRAST MATERIAL MRI WWO ABD 300 Everardo Yusuf APRN.CLOUD DEVELOPER [address] [place] [address] Radio Mri [facility] [address] [facility] [place] [address] Referral ID Status Reason Start Date Expiration Date Visits Re quested Visits Authorized [id number] Closed 11/25/2021 12/24/2021 1 1 [facility] Summary Purpose Family History No Family History Records Found Relationship Condition Age at Onset Recorded Date/T francia father Coronary artery disease Unknown Hypertension Unknown Malignant neoplasm Unknown Diabetes mellitus Unknown Cardiac disease Unknown High blood cholesterol Unknown mother Cerebrovascular accident (CVA) Unknown Malignant neoplasm of breast Unknown brother Diabetes mellitus Unknown Advance Directives No Advanced Directives Records Found Advance Directive Response Recorded Date/ Time Name of Medical Power of In Flight Technician September 06, 2021 9:32am Name of Medical Power of In Flight Technician - recalled September 23, 2021 11:18am Advance Directives No March 23, 2016 3:39pm Living Will No September 24, 022 6:33am Power of In Flight Technician No September 24, 2021 6:33am Documents on File Type Date Recorded Patient Shipping And Receiving Expl anation Advance Directive(s) 05/18/2020 3:04 PM Documents on File Type Date Recorded Patient Shipping And Receiving Expl anation Advance Directive(s) 05/18/2020 3:04 PM Advance Directive Response Recorded Date/ Time Advance Directives No March 23, 2016 2:39pm Living Will No September 24, 022 5:33am Power of In Flight Technician No September 24, 2021 5:33am Advance Directive Response Recorded Date/ Time Advance Directives No March 23, 2016 3:39pm Living Will No March 10, 2023 11:52am Power of In Flight Technician No March 10 11:52am Advance Directive Response Recorded Date/ Time Advance Directives No March 23, 2016 3:39pm Living Will No March 10, 2023 6:03pm Power of In Flight Technician No March 10 6:03pm Advance Directive Response Recorded Date/ Time Advance Directives No March 23, 2016 3:39pm Living Will No 2023 3:27pm Power of In Flight Technician No November 10 3:27pm Latest Code Status on File Code Status Date Activated Date Inactivated Comments Full Code 11/16/2023 3:56 PM Code Status History Code Status Date Activated Date Inactivated Comments Full Code 11/12/2023 8:51 PM 11/16/2023 3:56 PM Advance Directive Response Recorded Date/ Time Advance Directives No March 23, 2016 3:39pm Living Will No November 29, 2023 11:31am Power of In Flight Technician No November 28 11:31am Advance Directive Response Recorded Date/ Time Advance Directives No March 23, 2016 3:39pm Living Will No December 01, 2023 4:43pm Power of In Flight Technician No November 30 4:43pm Advance Directive Response Recorded Date/ Time Living Will No August 25 10:50pm Power of In Flight Technician No August 25, 2024 10:50pm Living Will No October 10, 2024 6:37am Power of In Flight Technician No October 10 6:37am Advance Directives No March 07 9:58am Advance Directive Response Recorded Date/ Time Living Will No August 25 10:50pm Do you have a Healthcare Power of In Flight Technician? No August 25, 2024 10:50pm Living Will No October 10, 2024 6:37am Do you have a Healthcare Power of In Flight Technician? No October 10, 2024 6:37am Advance Directives No March 07 9:58am Advance Directive Response Recorded Date/ Time Living Will No August 25 10:50pm Do you have a Healthcare Power of In Flight Technician? No August 25, 2024 10:50pm Living Will No November 24, 2024 8:09pm Do you have a Healthcare Power of In Flight Technician? No November 24, 2024 8:09pm Living Will No October 10, 2024 6:37am Do you have a Healthcare Power of In Flight Technician? No October 10, 2024 6:37am Advance Directives No March 07 9:58am Advance Directive Response Recorded Date/ Time Living Will No August 25 10:50pm Do you have a Healthcare Power of In Flight Technician? No August 25, 2024 10:50pm Living Will No November 24, 2024 11:13pm Do you have a Healthcare Power of In Flight Technician? No November 24, 2024 11:13pm Living Will No October 10, 2024 6:37am Do you have a Healthcare Power of In Flight Technician? No October 10, 2024 6:37am Advance Directives No March 07 9:58am Advance Directive Response Recorded Date/ Time Living Will No November 24, 2024 11:13pm Do you have a Healthcare Power of In Flight Technician? No November 24, 2024 11:13pm Do you have a Healthcare Power of In Flight Technician? Yes December 02, 2024 11:04pm Name of Medical Power of In Flight Technician José Vega December 02, 2024 11:04pm Advance Directives No March 07 9:58am Chief Complaint and Reason for Visit Chief Complaint SCREENING C-SCOPE headache, collapse from pain headache, collapse from pain NSTEMI NSTEMI NSTEMI NSTEMI NSTEMI NSTEMI NSTEMI NSTEMI NSTEMI NSTEMI CHEST PAIN CHEST PAIN Reason for Visit Colorectal cancer Parastomal hernia UTI (urinary tract infection) [id number] Dyslipidemia HTN (hypertension) Ischemic cardiomyopathy Altered mental status Hypoxia Non-ST elevation WV (NSTEMI) [id number] Dyslipidemia HTN (hypertension) Ischemic cardiomyopathy Chief Complaint 6 M FU EORDER- URINE DROPOFF Reason for Visit History of coronary artery stent placement [id number] Dyslipidemia Ischemic cardiomyopathy Chief Complaint 6 M FU NEAR SYNCOPE Reason for Visit [id number] Dyslipidemia Ischemic cardiomyopathy Near syncope Orthostatic hypotension Chief Complaint 6 M FU NEAR SYNCOPE NEAR SYNCOPE NEAR SYNCOPE Reason for Visit [id number] Dyslipidemia Ischemic cardiomyopathy Near syncope Orthostatic hypotension Chief Complaint 6 M FU/PREV PFM Reason for Visit Coronary artery dise ase Diabetes Dyslipidemia Essential hypertension H/O coronary artery bypass surgery History of coronary artery stent placement Chief Complaint 6 M FU/PREV PFM NEURO Reason for Visit Coronary artery dise ase Diabetes Dyslipidemia Essential hypertension H/O coronary artery bypass surgery History of coronary artery stent placement Chief Complaint 6 M FU/PREV PFM NEURO HIP PAIN Reason for Visit Coronary artery dise ase Diabetes Dyslipidemia Essential hypertension H/O coronary artery bypass surgery History of coronary artery stent placement Chief Complaint 6 M FU/PREV PFM NEURO HIP PAIN SMALL BOWEL OBSTRUCTION Reason for Visit Coronary artery dise ase Diabetes Dyslipidemia Essential hypertension H/O coronary artery bypass surgery History of coronary artery stent placement Chief Complaint Admit Date COMPLICATED UTI August 25, 2024 8 :42pm COMPLICATED UTI August 26, 2024 1 2:48pm COMPLICATED UTI August 27, 2024 1 1:22am COMPLICATED UTI August 28, 2024 2 :03pm confusion October 10, 2024 3:54 am RESP FAILURE, HF EXAC, SEPSIS, UTI, MADELEINE, ? PNA, October 10, 2024 4:04am RESP FAILURE, HF EXAC, SEPSIS, UTI, MADELEINE, ? PNA, October 10, 2024 7:45am RESP FAILURE, HF EXAC, SEPSIS, UTI, MADELEINE, ? PNA, October 11, 2024 8:40am RESP FAILURE, HF EXAC, SEPSIS, UTI, MADELEINE, ? PNA, October 11, 2024 11:40am RESP FAILURE, HF EXAC, SEPSIS, UTI, MADELEINE, ? PNA, October 11, 2024 11:42am RESP FAILURE, HF EXAC, SEPSIS, UTI, MADELEINE, ? PNA, October 12, 2024 10:39am RESP FAILURE, HF EXAC, SEPSIS, UTI, MADELEINE, ? PNA, October 12, 2024 1:54pm RESP FAILURE, HF EXAC, SEPSIS, UTI, MADELEINE, ? PNA, October 13, 2024 7:53am RESP FAILURE, HF EXAC, SEPSIS, UTI, MADELEINE, ? PNA, October 13, 2024 10:49am RESP FAILURE, HF EXAC, SEPSIS, UTI, MADELEINE, ? PNA, October 14, 2024 8:41am RESP FAILURE, HF EXAC, SEPSIS, UTI, MADELEINE, ? PNA, October 14, 2024 9:36am RESP FAILURE, HF EXAC, SEPSIS, UTI, MADELEINE, ? PNA, October 15, 2024 8:05am RESP FAILURE, HF EXAC, SEPSIS, UTI, MADELEINE, ? PNA, October 15, 2024 9:02am RESP FAILURE, HF EXAC, SEPSIS, UTI, MADELEINE, ? PNA, October 16, 2024 8:31am RESP FAILURE, HF EXAC, SEPSIS, UTI, MADELEINE, ? PNA, October 17, 2024 5:10pm RESP FAILURE, HF EXAC, SEPSIS, UTI, MADELEINE, ? 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 PNA, October 10, 2024 4:04am RESP FAILURE, HF EXAC, SEPSIS, UTI, MADELEINE, ? PNA, October 10, 2024 7:45am RESP FAILURE, HF EXAC, SEPSIS, UTI, MADELEINE, ? PNA, October 11, 2024 8:40am RESP FAILURE, HF EXAC, SEPSIS, UTI, MADELEINE, ? PNA, October 11, 2024 11:40am RESP FAILURE, HF EXAC, SEPSIS, UTI, MADELEINE, ? PNA, October 11, 2024 11:42am RESP FAILURE, HF EXAC, SEPSIS, UTI, MADELEINE, ? PNA, October 12, 2024 10:39am RESP FAILURE, HF EXAC, SEPSIS, UTI, MADELEINE, ? PNA, October 12, 2024 1:54pm RESP FAILURE, HF EXAC, SEPSIS, UTI, MADELEINE, ? PNA, October 13, 2024 7:53am RESP FAILURE, HF EXAC, SEPSIS, UTI, MADELEINE, ? PNA, October 13, 2024 10:49am RESP FAILURE, HF EXAC, SEPSIS, UTI, MADELEINE, ? PNA, October 14, 2024 8:41am RESP FAILURE, HF EXAC, SEPSIS, UTI, MADELEINE, ? PNA, October 14, 2024 9:36am RESP FAILURE, HF EXAC, SEPSIS, UTI, MADELEINE, ? PNA, October 15, 2024 8:05am RESP FAILURE, HF EXAC, SEPSIS, UTI, MADELEINE, ? PNA, October 15, 2024 9:02am RESP FAILURE, HF EXAC, SEPSIS, UTI, MADELEINE, ? PNA, October 16, 2024 8:31am RESP FAILURE, HF EXAC, SEPSIS, UTI, MADELEINE, ? PNA, October 17, 2024 5:10pm RESP FAILURE, HF EXAC, SEPSIS, UTI, MADELEINE, ? 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 PNA, October 10, 2024 4:04am RESP FAILURE, HF EXAC, SEPSIS, UTI, MADELEINE, ? PNA, October 10, 2024 7:45am RESP FAILURE, HF EXAC, SEPSIS, UTI, MADLEEINE, ? PNA, October 11, 2024 8:40am RESP FAILURE, HF EXAC, SEPSIS, UTI, MADELEINE, ? PNA, October 11, 2024 11:40am RESP FAILURE, HF EXAC, SEPSIS, UTI, MADELEINE, ? PNA, October 11, 2024 11:42am RESP FAILURE, HF EXAC, SEPSIS, UTI, MADELEINE, ? PNA, October 12, 2024 10:39am RESP FAILURE, HF EXAC, SEPSIS, UTI, MADELEINE, ? PNA, October 12, 2024 1:54pm RESP FAILURE, HF EXAC, SEPSIS, UTI, MADELEINE, ? PNA, October 13, 2024 7:53am RESP FAILURE, HF EXAC, SEPSIS, UTI, MADELIENE, ? PNA, October 13, 2024 10:49am RESP FAILURE, HF EXAC, SEPSIS, UTI, MADELEINE, ? PNA, October 14, 2024 8:41am RESP FAILURE, HF EXAC, SEPSIS, UTI, MADELEINE, ? PNA, October 14, 2024 9:36am RESP FAILURE, HF EXAC, SEPSIS, UTI, MADELEINE, ? PNA, October 15, 2024 8:05am RESP FAILURE, HF EXAC, SEPSIS, UTI, MADELEINE, ? PNA, October 15, 2024 9:02am RESP FAILURE, HF EXAC, SEPSIS, UTI, MADELEINE, ? PNA, October 16, 2024 8:31am RESP FAILURE, HF EXAC, SEPSIS, UTI, MADELEINE, ? PNA, October 17, 2024 5:10pm RESP FAILURE, HF EXAC, SEPSIS, UTI, MADELEINE, ? PNA, October 18, 2024 12:47pm DROP OFF October 21, 2024 7:1 5pm S/P [facility] 10/18October 30, 2024 2:1 1pm SEVERE MADELEINE WITH UREMIA ACUTE PANCREATITI S November 24, 2024 10:33pm Reason for Visit Admit Date Acute febrile illness August 25, 2024 8:42pm Acute UTI August 25, 2024 8 :42pm Complicated urinary tract infection Alfredo ferro 2024 8:42pm Elevated lactic acid level August 25, 2024 8:42pm Coronary artery disease October 10, 2024 4:04am Acidosis, lactic October 10, 2024 4:04 am Acute kidney injury October 10, 2024 4:04 am Acute respiratory failure with hypoxia [facility] 2024 4:04am 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 October 10, 2024 4:04am Non-ST elevated myocardial infarction (n on-STEMI) October 10, 2024 4:04am Sepsis October 10, 2024 4:04 am UTI (urinary tract infection) October 10, 2024 4:04am Diabetes October 30, 2024 2:1 1pm Dyslipidemia October 30, 2024 2:1 1pm Essential hypertension October 30, 2024 2:11pm H/O coronary artery bypass surgery October 30, 2024 2:11pm History of coronary artery stent placeme nt October 30, 2024 2:11pm Reason for Visit Admit Date Acute febrile illness August 25, 2024 8:42pm Acute UTI August 25, 2024 8 :42pm Complicated urinary tract infection Alfredo ferro 2024 8:42pm Elevated lactic acid level August 25, 2024 8:42pm Coronary artery disease October 10, 2024 4:04am Acidosis, lactic October 10, 2024 4:04 am Acute kidney injury October 10, 2024 4:04 am Acute respiratory failure with hypoxia M arch 2024 4:04am 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 October 10, 2024 4:04am Non-ST elevated myocardial infarction (n on-STEMI) October 10, 2024 4:04am Sepsis October 10, 2024 4:04 am UTI (urinary tract infection) October 10, 2024 4:04am Diabetes October 30, 2024 2:1 1pm Dyslipidemia October 30, 2024 2:1 1pm Essential hypertension October 30, 2024 2:11pm H/O coronary artery bypass surgery October 30, 2024 2:11pm History of coronary artery stent placeme nt October 30, 2024 2:11pm MADELEINE (acute kidney injury) November 24 10:33pm Pancreatitis November 24, 2024 10: 33pm Uremia November 24, 2024 10: 33pm Chief Complaint Admit Date COMPLICATED UTI August 25, 2024 8 :42pm COMPLICATED UTI August 26, 2024 1 2:48pm COMPLICATED UTI August 27, 2024 1 1:22am COMPLICATED UTI August 28, 2024 2 :03pm confusion October 10, 2024 3:54 am RESP FAILURE, HF EXAC, SEPSIS, UTI, MADELEINE, ? PNA, October 10, 2024 4:04am RESP FAILURE, HF EXAC, SEPSIS, UTI, MADELEINE, ? PNA, October 10, 2024 7:45am RESP FAILURE, HF EXAC, SEPSIS, UTI, MADELEINE, ? PNA, October 11, 2024 8:40am RESP FAILURE, HF EXAC, SEPSIS, UTI, MADELEINE, ? PNA, October 11, 2024 11:40am RESP FAILURE, HF EXAC, SEPSIS, UTI, MADELEINE, ? PNA, October 11, 2024 11:42am RESP FAILURE, HF EXAC, SEPSIS, UTI, MADELEINE, ? PNA, October 12, 2024 10:39am RESP FAILURE, HF EXAC, SEPSIS, UTI, MADELEINE, ? PNA, October 12, 2024 1:54pm RESP FAILURE, HF EXAC, SEPSIS, UTI, MADELEINE, ? PNA, October 13, 2024 7:53am RESP FAILURE, HF EXAC, SEPSIS, UTI, MADELEINE, ? PNA, October 13, 2024 10:49am RESP FAILURE, HF EXAC, SEPSIS, UTI, MADELEINE, ? PNA, October 14, 2024 8:41am RESP FAILURE, HF EXAC, SEPSIS, UTI, MADELEINE, ? PNA, October 14, 2024 9:36am RESP FAILURE, HF EXAC, SEPSIS, UTI, MADELEINE, ? PNA, October 15, 2024 8:05am RESP FAILURE, HF EXAC, SEPSIS, UTI, MADELEINE, ? PNA, October 15, 2024 9:02am RESP FAILURE, HF EXAC, SEPSIS, UTI, MADELEINE, ? PNA, October 16, 2024 8:31am RESP FAILURE, HF EXAC, SEPSIS, UTI, MADELEINE, ? PNA, October 17, 2024 5:10pm RESP FAILURE, HF EXAC, SEPSIS, UTI, MADELEINE, ? PNA, October 18, 2024 12:47pm DROP OFF October 21, 2024 7:1 5pm S/P [facility] 10/18October 30, 2024 2:1 1pm SEVERE MADELEINE WITH UREMIA ACUTE PANCREATITI S November 24, 2024 10:33pm SEVERE MADELEINE WITH UREMIA ACUTE PANCREATITI S November 25, 2024 6:24pm SEVERE MADELEINE WITH UREMIA ACUTE PANCREATITI S November 26, 2024 4:21pm SEVERE MADELEINE WITH UREMIA ACUTE PANCREATITI S November 27, 2024 6:45pm SEVERE MADELEINE WITH UREMIA ACUTE PANCREATITI S November 28, 2024 12:32pm Reason for Visit Admit Date Acute febrile illness August 25, 2024 8:42pm Acute UTI August 25, 2024 8 :42pm Complicated urinary tract infection Alfredo pillo 2024 8:42pm Elevated lactic acid level August 25, 2024 8:42pm Coronary artery disease October 10, 2024 4:04am Acidosis, lactic October 10, 2024 4:04 am Acute kidney injury October 10, 2024 4:04 am Acute respiratory failure with hypoxia [facility] 2024 4:04am 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 October 10, 2024 4:04am Non-ST elevated myocardial infarction (n on-STEMI) October 10, 2024 4:04am Sepsis October 10, 2024 4:04 am UTI (urinary tract infection) October 10, 2024 4:04am Diabetes October 30, 2024 2:1 1pm Dyslipidemia October 30, 2024 2:1 1pm Essential hypertension October 30, 2024 2:11pm H/O coronary artery bypass surgery October 30, 2024 2:11pm History of coronary artery stent placeme nt October 30, 2024 2:11pm MADELEINE (acute kidney injury) November 24 10:33pm Nausea & vomiting November 24, 2024 10: 33pm Pancreatitis November 24, 2024 10: 33pm Uremia November 24, 2024 10: 33pm Chief Complaint Admit Date SEVERE MADELEINE WITH UREMIA ACUTE PANCREATITI S November 24, 2024 10:33pm SEVERE MADELEINE WITH UREMIA ACUTE PANCREATITI S November 25, 2024 6:24pm SEVERE MADELEINE WITH UREMIA ACUTE PANCREATITI S November 26, 2024 4:21pm SEVERE MADELEINE WITH UREMIA ACUTE PANCREATITI S November 27, 2024 6:45pm SEVERE MADELEINE WITH UREMIA ACUTE PANCREATITI S November 28, 2024 12:32pm ABNL Labs December 02, 2024 10: 58pm [facility] 4/29 HYPERKALEMIA December 09, 2024 1:28 pm 3 M FU March 17, 2025 1: 18pm Reason for Visit Admit Date MADELEINE (acute kidney injury) November 24 10:33pm Nausea & vomiting November 24, 2024 10: 33pm Pancreatitis November 24, 2024 10: 33pm Uremia November 24, 2024 10: 33pm HFrEF (heart failure with reduced ejecti on fraction) December 09, 2024 1:28pm Dyslipidemia December 09, 2024 1:28pm Essential hypertension December 09, 2024 1:2 8pm H/O coronary artery bypass surgery December 092024 1:28pm History of coronary artery stent placeme nt December 09, 2024 1:28pm Hyperkalemia December 09, 2024 1:28pm HFrEF (heart failure with reduced ejecti on fraction) March 17, 2025 1:18pm Dyslipidemia March 17, 2025 1: 18pm Essential hypertension March 17, 2025 1:18pm H/O coronary artery bypass surgery Augus lanette 2024 1:18pm History of coronary artery stent placeme nt March 17, 2025 1:18pm Hyperkalemia March 17, 2025 1: 18pm Chief Complaint Admit Date SEVERE MADELEINE WITH UREMIA ACUTE PANCREATITI S November 24, 2024 10:33pm SEVERE MADELEINE WITH UREMIA ACUTE PANCREATITI S November 25, 2024 6:24pm SEVERE MADELEINE WITH UREMIA ACUTE PANCREATITI S November 26, 2024 4:21pm SEVERE MADELEINE WITH UREMIA ACUTE PANCREATITI S November 27, 2024 6:45pm SEVERE MADELEINE WITH UREMIA ACUTE PANCREATITI S November 28, 2024 12:32pm ABNL Labs December 02, 2024 10: 58pm [facility] 12/03 HYPERKALEMIA December 09, 2024 1:28 pm 3 M FU March 17, 2025 1: 18pm LABS March 17, 2025 1: 47pm Reason for Visit Admit Date MADELEINE (acute kidney injury) November 24 10:33pm Nausea & vomiting November 24, 2024 10: 33pm Pancreatitis November 24, 2024 10: 33pm Uremia November 24, 2024 10: 33pm HFrEF (heart failure with reduced ejecti on fraction) December 09, 2024 1:28pm Hyperkalemia December 09, 2024 1:28pm Dyslipidemia December 09, 2024 1:28pm Essential hypertension December 09, 2024 1:2 8pm H/O coronary artery bypass surgery December 092024 1:28pm History of coronary artery stent placeme nt December 09, 2024 1:28pm HFrEF (heart failure with reduced ejecti on fraction) March 17, 2025 1:18pm Hyperkalemia March 17, 2025 1: 18pm Dyslipidemia March 17, 2025 1: 18pm Essential hypertension March 17, 2025 1:18pm H/O coronary artery bypass surgery Augus t 2024 1:18pm History of coronary artery stent placeme nt March 17, 2025 1:18pm Reason for Referral Specialty Diagnoses / Procedures Referred By Araceli gama Referred To Contact CT IMAGING Diagnoses Rectal cancer (HCC) Procedures CT CHEST W IVCON CAT SCAN OF CHEST CONTRAST Everardo Yusuf, BALTAZAR.CLOUD DEVELOPER [address] [place] [address] Ct Imaging Referral ID Status Reason Start Date Expiration Date V isits Requested Visits Authorized [id number] Closed Auto-Generate d Referral 11/05/2021 12/04/2021 1 1 Specialty Diagnoses / Procedures Referred By Contac t Referred To Contact CT IMAGING Diagnoses Rectal cancer (HCC) Procedures CT ABD/PEL W IVCON CT ABD & PELVIS W/CONTRAST Everardo Yusuf APRN.CLOUD DEVELOPER [address] [place] [address] Ct Imaging Referral ID Status Reason Start Date Expiration Date V isits Requested Visits Authorized [id number] Closed Auto-Generate d Referral 11/05/2021 12/04/2021 1 1 Specialty Diagnoses / Procedures Referred By Contac t Referred To Contact CT IMAGING Diagnoses Rectal cancer (HCC) Elevated CEA Procedures CT CHEST W IVCON DIAGNOSTIC COMPUTED TOMOGRAPHY THORAX W/CONTRAST Everardo Yusuf APRN.CLOUD DEVELOPER [address] [place] [address] [place] [address] Referral ID Status Reason Start Date Expiration Date Visits Requested Visits Authorized [id number] Authorized Auto-Generat ed Referral 3 06/24/2023 1 1 Specialty Diagnoses / Procedures Referred By Contac t Referred To Contact CT IMAGING Diagnoses Rectal cancer (HCC) Elevated CEA Procedures CT ABD/PEL W IVCON CT ABD & PELVIS W/CONTRAST Everardo Yusuf APRN.CLOUD DEVELOPER [address] [place] [address] Ct Imaging [facility] Referral ID Status Reason Start Date Expiration Date Visits Requested Visits Authorized [id number] Authorized Auto-Generat ed Referral 3 06/24/2023 1 1 Specialty Diagnoses / Procedures Referred By Contac t Referred To Contact [facility]ANT Diagnoses High output ileostomy (HCC) Procedures CONSULT TO [facility] LAPAROTOMY CELIOTOMY W/WO BIOPSY SPX Forest Kimble MD [address] [place] [address] 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 06/04/2025 99 99 Specialty Diagnoses / Procedures Referred By Contac t Referred To Contact Diagnoses Chronic suprapubic catheter (HCC) Procedures CONSULT TO [facility] Kenzie Drew APRN.[facility] [address] [place] [address] Home Care [address] [place] [address] Referral ID Status Reason Start Date Expiration Date Visits Requested Visits Authorized [id number] Authorized PCP Requested Referral 09/09/2024 12/08/2024 1 1 Specialty Diagnoses / Procedures Referred By Contac t Referred To Contact [facility] Diagnoses Chronic suprapubic catheter (HCC) Procedures SUPRAPUBIC TUBE CHANGE ASPIRATION BLADDER INSERT SUPRAPUBIC CATHETER Kenzie Drew APRN.CNP, DNP [address] [place] [address] [facility] [address] [place] [address] Referral ID Status Reason Start Date Expiration Date Visits Requested Visits Authorized [id number] New Request Auto-Generat ed Referral 09/09/2024 09/09/2025 1 1 Additional Source Comments (unrecognized sect ion and content) No Status Records FoundNo Status Records FoundNo Status Records FoundNo Status Records FoundNo Status Records FoundNo Status Records FoundNo Status Records Found INFORMATION SOURCE (unrecogn ized section and content) DATE CREATED AUTHOR 01/31/2018 [facility] DATE CREATED AUTHOR AUTHOR'S ORGANIZ ATION 03/16/2022 [facility] DATE CREATED AUTHOR AUTHOR'S ORGANIZ ATION 01/13/2024 [facility] ([place]) DATE CREATED AUTHOR AUTHOR'S ORGANIZ ATION 03/10/2024 [facility] DATE CREATED AUTHOR AUTHOR'S ORGANIZ ATION 07/31/2024 [facility] DATE CREATED AUTHOR AUTHOR'S ORGANIZ ATION 01/03/2025 [facility] DATE CREATED AUTHOR AUTHOR'S ORGANIZ ATION 04/10/2025 [facility] Goals (unrecognized section and content) Goals may be documented in a n alternate sectionGoals may be documented in an alternate sectionGoals may be documented in an alternate sectionGoals may be documented in an alternate sectionGoals may be documented in an alternate sectionGoals may be documented in an alternate sectionGoals may be documented in an alternate sectionGoals may be documented in an alternate sectionGoals may be documented in an alternate section Source Comments (unrecognize d section and content) In the event this informatio n is protected by the Federal Confidentiality of Alcohol and Drug Abuse Patient Records regulations: The Federal rules restrict any use of the information to criminally investigate or prosecute any alcohol or drug abuse patient.[facility] the event this information is protected by the Federal Confidentiality of Alcohol and Drug Abuse Patient Records regulations: The Federal rules restrict any use of the information to criminally investigate or prosecute any alcohol or drug abuse patient.[facility] HospitalIn the event this information is protected by the Federal Confidentiality of Alcohol and Drug Abuse Patient Records regulations: The Federal rules restrict any use of the information to criminally investigate or prosecute any alcohol or drug abuse patient.[facility] HospitalIn the event this information is protected by the Federal Confidentiality of Alcohol and Drug Abuse Patient Records regulations: The Federal rules restrict any use of the information to criminally investigate or prosecute any alcohol or drug abuse patient.[facility] HospitalIn the event this information is protected by the Federal Confidentiality of Alcohol and Drug Abuse Patient Records regulations: The Federal rules restrict any use of the information to criminally investigate or prosecute any alcohol or drug abuse patient.[facility] HospitalIn the event this information is protected by the Federal Confidentiality of Alcohol and Drug Abuse Patient Records regulations: The Federal rules restrict any use of the information to criminally investigate or prosecute any alcohol or drug abuse patient.[facility] HospitalIn the event this information is protected by the Federal Confidentiality of Alcohol and Drug Abuse Patient Records regulations: The Federal rules restrict any use of the information to criminally investigate or prosecute any alcohol or drug abuse patient.[facility] HospitalIn the event this information is protected by the Federal Confidentiality of Alcohol and Drug Abuse Patient Records regulations: The Federal rules restrict any use of the information to criminally investigate or prosecute any alcohol or drug abuse patient.[facility] HospitalIn the event this information is protected by the Federal Confidentiality of Alcohol and Drug Abuse Patient Records regulations: The Federal rules restrict any use of the information to criminally investigate or prosecute any alcohol or drug abuse patient.[facility] HospitalIn the event this information is protected by the Federal Confidentiality of Alcohol and Drug Abuse Patient Records regulations: The Federal rules restrict any use of the information to criminally investigate or prosecute any alcohol or drug abuse patient.[facility] HospitalIn the event this information is protected by the Federal Confidentiality of Alcohol and Drug Abuse Patient Records regulations: The Federal rules restrict any use of the information to criminally investigate or prosecute any alcohol or drug abuse patient.[facility] HospitalIn the event this information is protected by the Federal Confidentiality of Alcohol and Drug Abuse Patient Records regulations: The Federal rules restrict any use of the information to criminally investigate or prosecute any alcohol or drug abuse patient.[facility] HospitalIn the event this information is protected by the Federal Confidentiality of Alcohol and Drug Abuse Patient Records regulations: The Federal rules restrict any use of the information to criminally investigate or prosecute any alcohol or drug abuse patient.[facility] HospitalIn the event this information is protected by the Federal Confidentiality of Alcohol and Drug Abuse Patient Records regulations: The Federal rules restrict any use of the information to criminally investigate or prosecute any alcohol or drug abuse patient.[facility] HospitalIn the event this information is protected by the Federal Confidentiality of Alcohol and Drug Abuse Patient Records regulations: The Federal rules restrict any use of the information to criminally investigate or prosecute any alcohol or drug abuse patient.[facility] HospitalIn the event this information is protected by the Federal Confidentiality of Alcohol and Drug Abuse Patient Records regulations: The Federal rules restrict any use of the information to criminally investigate or prosecute any alcohol or drug abuse patient.[facility] HospitalIn the event this information is protected by the Federal Confidentiality of Alcohol and Drug Abuse Patient Records regulations: The Federal rules restrict any use of the information to criminally investigate or prosecute any alcohol or drug abuse patient.[facility] HospitalIn the event this information is protected by the Federal Confidentiality of Alcohol and Drug Abuse Patient Records regulations: The Federal rules restrict any use of the information to criminally investigate or prosecute any alcohol or drug abuse patient.[facility] HospitalIn the event this information is protected by the Federal Confidentiality of Alcohol and Drug Abuse Patient Records regulations: The Federal rules restrict any use of the information to criminally investigate or prosecute any alcohol or drug abuse patient.[facility] HospitalIn the event this information is protected by the Federal Confidentiality of Alcohol and Drug Abuse Patient Records regulations: The Federal rules restrict any use of the information to criminally investigate or prosecute any alcohol or drug abuse patient.[facility] HospitalIn the event this information is protected by the Federal Confidentiality of Alcohol and Drug Abuse Patient Records regulations: The Federal rules restrict any use of the information to criminally investigate or prosecute any alcohol or drug abuse patient.[facility] HospitalIn the event this information is protected by the Federal Confidentiality of Alcohol and Drug Abuse Patient Records regulations: The Federal rules restrict any use of the information to criminally investigate or prosecute any alcohol or drug abuse patient.[facility] HospitalIn the event this information is protected by the Federal Confidentiality of Alcohol and Drug Abuse Patient Records regulations: The Federal rules restrict any use of the information to criminally investigate or prosecute any alcohol or drug abuse patient.[facility] HospitalIn the event this information is protected by the Federal Confidentiality of Alcohol and Drug Abuse Patient Records regulations: The Federal rules restrict any use of the information to criminally investigate or prosecute any alcohol or drug abuse patient.[facility] HospitalIn the event this information is protected by the Federal Confidentiality of Alcohol and Drug Abuse Patient Records regulations: The Federal rules restrict any use of the information to criminally investigate or prosecute any alcohol or drug abuse patient.[facility] HospitalIn the event this information is protected by the Federal Confidentiality of Alcohol and Drug Abuse Patient Records regulations: The Federal rules restrict any use of the information to criminally investigate or prosecute any alcohol or drug abuse patient.[facility] HospitalIn the event this information is protected by the Federal Confidentiality of Alcohol and Drug Abuse Patient Records regulations: The Federal rules restrict any use of the information to criminally investigate or prosecute any alcohol or drug abuse patient.[facility] HospitalIn the event this information is protected by the Federal Confidentiality of Alcohol and Drug Abuse Patient Records regulations: The Federal rules restrict any use of the information to criminally investigate or prosecute any alcohol or drug abuse patient.[facility] HospitalIn the event this information is protected by the Federal Confidentiality of Alcohol and Drug Abuse Patient Records regulations: The Federal rules restrict any use of the information to criminally investigate or prosecute any alcohol or drug abuse patient.[facility] HospitalIn the event this information is protected by the Federal Confidentiality of Alcohol and Drug Abuse Patient Records regulations: The Federal rules restrict any use of the information to criminally investigate or prosecute any alcohol or drug abuse patient.[facility] HospitalIn the event this information is protected by the Federal Confidentiality of Alcohol and Drug Abuse Patient Records regulations: The Federal rules restrict any use of the information to criminally investigate or prosecute any alcohol or drug abuse patient.[facility] HospitalIn the event this information is protected by the Federal Confidentiality of Alcohol and Drug Abuse Patient Records regulations: The Federal rules restrict any use of the information to criminally investigate or prosecute any alcohol or drug abuse patient.[facility] HospitalIn the event this information is protected by the Federal Confidentiality of Alcohol and Drug Abuse Patient Records regulations: The Federal rules restrict any use of the information to criminally investigate or prosecute any alcohol or drug abuse patient.[facility] HospitalIn the event this information is protected by the Federal Confidentiality of Alcohol and Drug Abuse Patient Records regulations: The Federal rules restrict any use of the information to criminally investigate or prosecute any alcohol or drug abuse patient.[facility] HospitalIn the event this information is protected by the Federal Confidentiality of Alcohol and Drug Abuse Patient Records regulations: The Federal rules restrict any use of the information to criminally investigate or prosecute any alcohol or drug abuse patient.[facility] HospitalIn the event this information is protected by the Federal Confidentiality of Alcohol and Drug Abuse Patient Records regulations: The Federal rules restrict any use of the information to criminally investigate or prosecute any alcohol or drug abuse patient.[facility] HospitalIn the event this information is protected by the Federal Confidentiality of Alcohol and Drug Abuse Patient Records regulations: The Federal rules restrict any use of the information to criminally investigate or prosecute any alcohol or drug abuse patient.[facility] HospitalIn the event this information is protected by the Federal Confidentiality of Alcohol and Drug Abuse Patient Records regulations: The Federal rules restrict any use of the information to criminally investigate or prosecute any alcohol or drug abuse patient.[facility] HospitalIn the event this information is protected by the Federal Confidentiality of Alcohol and Drug Abuse Patient Records regulations: The Federal rules restrict any use of the information to criminally investigate or prosecute any alcohol or drug abuse patient.[facility] HospitalIn the event this information is protected by the Federal Confidentiality of Alcohol and Drug Abuse Patient Records regulations: The Federal rules restrict any use of the information to criminally investigate or prosecute any alcohol or drug abuse patient.[facility] HospitalIn the event this information is protected by the Federal Confidentiality of Alcohol and Drug Abuse Patient Records regulations: The Federal rules restrict any use of the information to criminally investigate or prosecute any alcohol or drug abuse patient.[facility] HospitalIn the event this information is protected by the Federal Confidentiality of Alcohol and Drug Abuse Patient Records regulations: The Federal rules restrict any use of the information to criminally investigate or prosecute any alcohol or drug abuse patient.[facility] Teams (unrecognized sec tion and content) Sole Leveling Machine Operator Relationship Specialty Start Date End Date Kendy Modi PCP - General Family Practice 01/21/13 Bipin Ford MD, [address] [place] [address] Physician Radiation Oncology 06/12/19 Jo Maria RN Specialty Mercerizing Range Controller Oncology 01/16/20 Sole Leveling Machine Operator Relationship Specialty Start Date End Date Kendy Modi PCP - General Family Practice 01/21/13 Bipin Ford MD, [address] [place] [address] Physician Radiation Oncology 06/12/19 Jo Maria RN Specialty Mercerizing Range Controller Oncology 01/16/20 Sole Leveling Machine Operator Relationship Specialty Start Date End Date Kendy Modi PCP - General Family Practice 01/21/13 Bipin Ford MD, [address] [place] [address] Physician Radiation Oncology 06/12/19 Jo Maria RN Specialty Mercerizing Range Controller Oncology 01/16/20 Sole Leveling Machine Operator Relationship Specialty Start Date End Date Kendy Modi PCP - General Family Practice 01/21/13 Bipin Ford MD, [address] [place] [address] Physician Radiation Oncology 06/12/19 Jo Maria RN Specialty Mercerizing Range Controller Oncology 01/16/20 Sole Leveling Machine Operator Relationship Specialty Start Date End Date Kendy Modi PCP - General Family Practice 01/21/13 Bipin Ford MD, [address] [facility] [address] [place] [address] Physician Radiation Oncology 06/12/19 Jo Maria RN Specialty Mercerizing Range Controller Oncology 01/16/20 Sole Leveling Machine Operator Relationship Specialty Start Date End Date Kendy Modi PCP - General Family Practice 01/21/13 Bipin Ford MD, [address] [facility] [place] [address] Physician Radiation Oncology 06/12/19 Jo Maria RN Specialty Mercerizing Range Controller Oncology 01/16/20 Sole Leveling Machine Operator Relationship Specialty Start Date End Date Kendy Modi PCP - General Family Practice 01/21/13 Bipin Ford MD, [address] [facility] [place] [address] Physician Radiation Oncology 06/12/19 Jo Maria RN Specialty Mercerizing Range Controller Oncology 01/16/20 Sole Leveling Machine Operator Relationship Specialty Start Date End Date Kendy Modi PCP - General Family Practice 01/21/13 Bipin Ford MD, [address] [place] [address] Physician Radiation Oncology 06/12/19 Jo Maria RN Specialty Mercerizing Range Controller Oncology 01/16/20 Sole Leveling Machine Operator Relationship Specialty Start Date End Date Kendy Modi PCP - General Family Medicine 01/21/13 Bipin Ford MD, [address] [place] [address] Physician Radiation Oncology 06/12/19 Jo Maria RN Specialty Mercerizing Range Controller Oncology 01/16/20 Sole Leveling Machine Operator Relationship Specialty Start Date End Date Kendy Modi PCP - General Family Medicine 01/21/13 Bipin Ford MD, [address] [place] [address] Physician Radiation Oncology 06/12/19 Jo Maria RN Specialty Mercerizing Range Controller Oncology 01/16/20 Team Status: Active Member Role Status Dates Dr. Kendy Modi MD Family Provider Active Dr. Kendy Modi MD Primary Care Provider Active Team Status: Inactive Member Role Status Dates Dr. Kendy Modi MD Primary Care Provider, Referrin g Provider Active Dr. Dwayne Gee MD Attending Provider Active Team Status: Inactive Member Role Status Dates Dr. Kendy Modi MD Primary Care Prov ider, Attending Provider, Referring Provider Active Team Status: Active Member Role Status Dates Dr. Kendy Modi MD Primary Care Prov ider, Attending Provider, Referring Provider Active Team Status: Inactive Member Role Status Dates Dr. Kendy Modi MD Primary Care Provider, Referrin g Provider Active Vishal Gonzalez AIRLINE STATION AGENT, AIRLINE STATION AGENT-C Attending Provider Active Team Status: Active Member Role Status Dates Dr. Kendy Modi MD Primary Care Provider Active Dr. Citlali Zurita MD Emergency Provider Active Dr. Matt Penny MD Admit Provider, Attending Provi isi Active Team Status: Active Member Role Status Dates Dr. Kendy Modi MD Primary Care Provider Active Dr. Citlali Zurita MD Emergency Provider Active Dr. Matt Penny MD Admit Provider, Other Provider Active Dr. Catherine Barton MD Attending Provider, Other Prov ider Active Team Status: Inactive Member Role Status Dates Dr. Kendy Modi MD Primary Care Provider Active Dr. Citlali Zurita MD Emergency Provider Active Dr. Matt Penny MD Admit Provider, Other Provider Active Dr. Catherine Barton MD Attending Provider Active Sole Leveling Machine Operator Relationship Specialty Start Date End Date Kendy Modi MD [address] [place] [address] PCP - General Family Medicine 05/24/23 Sole Leveling Machine Operator Relationship Specialty Start Date End Date Kendy Modi PCP - General Family Medicine 01/21/13 Bipin Ford MD, MD [address] [place], [place] [address] Physician Radiation Oncology 06/12/19 Jo Maria RN Specialty Mercerizing Range Controller Oncology 01/16/20 Sole Leveling Machine Operator Relationship Specialty Start Date End Date Kendy Modi PCP - General Family Medicine 01/21/13 Bipin Ford MD, MD [address] [place], [place] [id number] Physician Radiation Oncology 06/12/19 Jo Maria RN Specialty Mercerizing Range Controller Oncology 01/16/20 Sole Leveling Machine Operator Relationship Specialty Start Date End Date Kendy Modi PCP - General Family Medicine 01/21/13 Bipin Ford MD, MD [address] [place] [address] Physician Radiation Oncology 06/12/19 Jo Maria RN Specialty Mercerizing Range Controller Oncology 01/16/20 Sole Leveling Machine Operator Relationship Specialty Start Date End Date Kendy Modi PCP - General Family Medicine 01/21/13 Bipin Ford MD, MD [address] [place] [place], [place] [address] Physician Radiation Oncology 06/12/19 Jo Maria RN Specialty Mercerizing Range Controller Oncology 01/16/20 Sole Leveling Machine Operator Relationship Specialty Start Date End Date Kendy Modi PCP - General Family Medicine 01/21/13 Bipin Ford MD, MD [address] [place], [place] [id number] Physician Radiation Oncology 06/12/19 Jo Maria RN Specialty Mercerizing Range Controller Oncology 01/16/20 Sole Leveling Machine Operator Relationship Specialty Start Date End Date Kendy Modi PCP - General Family Medicine 01/21/13 Bipin Ford MD, MD [address] [place], [place] [address] Physician Radiation Oncology 06/12/19 Jo Maria RN Specialty Mercerizing Range Controller Oncology 01/16/20 Sole Leveling Machine Operator Relationship Specialty Start Date End Date Kendy Modi MD [address] [place] [address] PCP - General Family Medicine 05/24/23 Team Status: Inactive Member Role Status Dates Dr. Kendy Modi MD Primary [facility] Provider, [facility] Active Dr. Prateek Smith MD Attending Provider Active Team Status: Inactive Member Role Status Dates Dr. Kendy Modi MD Primary Care Provider, Attendin g Provider Active Team Status: Inactive Member Role Status Dates Dr. Kendy Modi MD Primary Care Provider Active Dr. Kenzie Britton DO Emergency Provider Active Sole Leveling Machine Operator Relationship Specialty Start Date End Date Kendy Modi MD [address] [place] [address] PCP - General Family Medicine 05/24/23 Team Status: Inactive Member Role Status Dates Dr. Knedy Modi MD Primary Care Provider Active Dr. Kenzie Britton DO Attending Provider, Emergency Jonathan griffin Active Team Status: Inactive Member Role Status Dates Dr. Kendy Modi MD Primary Care Provider Active Dr. Citlali Zurita MD Emergency Provider Active Team Status: Active Member Role Status Dates Dr. Kendy Modi MD Primary Care Provider Active Manisha MOLINA MD Attending Provider Active Team Status: Active Member Role Status Dates Dr. Kendy Modi MD Primary Care Provider Active Dr. Roberto Lockhart DO Emergency Provider Active Dr. Claudio Devlin DO Admit Provider, Attending Provider Active Sole Leveling Machine Operator Relationship Specialty Start Date End Date Kendy Modi PCP - General Family Medicine 01/21/13 Bipin Ford MD [address] [place], [place] [address] Physician Radiation Oncology 06/12/19 Jo Maria RN Specialty Mercerizing Range Controller Oncology 01/16/20 Sole Leveling Machine Operator Relationship Specialty Start Date End Date Kendy Modi PCP - General Family Medicine 01/21/13 Bipin Ford MD [address] [place] [address] Physician Radiation Oncology 06/12/19 Doup, Jo, RN Specialty Mercerizing Range Controller Oncology 01/16/20 Sole Leveling Machine Operator Relationship Specialty Start Date End Date Kendy Modi PCP - General Family Medicine 01/21/13 Bipin Ford MD [address] [place], [place] [address] Physician Radiation Oncology 06/12/19 Jo Maria RN Specialty Mercerizing Range Controller Oncology 01/16/20 Sole Leveling Machine Operator Relationship Specialty Start Date End Date Kendy Modi PCP - General Family Medicine 01/21/13 Bipin Ford MD [address] [place], [place] [address] Physician Radiation Oncology 06/12/19 Jo Maria RN Specialty Mercerizing Range Controller Oncology 01/16/20 Sole Leveling Machine Operator Relationship Specialty Start Date End Date Kendy Modi PCP - General Family Medicine 01/21/13 Bipin Ford MD [address] [place], [place] [address] Physician Radiation Oncology 06/12/19 Jo Maria RN Specialty Mercerizing Range Controller Oncology 01/16/20 Matt Penny [address] [place], [place] [address]SHAMAR RENEE [address] [id number] Referring Internal Medicine 04/04/24 Sole Leveling Machine Operator Relationship Specialty Start Date End Date Kendy Modi PCP - General Family Medicine 01/21/13 Bipin Ford MD [address] [place] [address] Physician Radiation Oncology 06/12/19 Jo Maria RN Specialty Mercerizing Range Controller Oncology 01/16/20 Matt Penny [address] [place], [place] [address] Referring Internal Medicine 04/04/24 Sole Leveling Machine Operator Relationship Specialty Start Date End Date Kendy Modi PCP - General Family Medicine 01/21/13 Bipin Ford MD [address] [place] [address] Physician Radiation Oncology 06/12/19 Jo Maria RN Specialty Mercerizing Range Controller Oncology 01/16/20 Matt Penny [address] [place] [address] Referring Internal Medicine 04/04/24 Sole Leveling Machine Operator Relationship Specialty Start Date End Date Kendy Modi PCP - General Family Medicine 01/21/13 Bipin Ford MD [address] [place] [address] Physician Radiation Oncology 06/12/19 Jo Maria RN Specialty Mercerizing Range Controller Oncology 01/16/20 Matt Penny [address] [place], [place] [address] Referring Internal Medicine 04/04/24 Sole Leveling Machine Operator Relationship Specialty Start Date End Date Kendy Modi PCP - General Family Medicine 01/21/13 Bipin Ford MD [address] [place] [address] Physician Radiation Oncology 06/12/19 Jo Maria RN Specialty Mercerizing Range Controller Oncology 01/16/20 Matt Penny [address] [place], [place] [address] Referring Internal Medicine 04/04/24 Sole Leveling Machine Operator Relationship Specialty Start Date End Date Kendy Modi PCP - General Family Medicine 01/21/13 Bipin Ford MD [address] [place], [place] [phone] Physician Radiation Oncology 06/12/19 Jo Maria RN Specialty Mercerizing Range Controller Oncology 01/16/20 Matt Penny [address] [place], [place] [address] Referring Internal Medicine 04/04/24 Sole Leveling Machine Operator Relationship Specialty Start Date End Date Kendy Modi PCP - General Family Medicine 01/21/13 Bipin Ford MD [address] [place] [address] Physician Radiation Oncology 06/12/19 Jo Maria RN Specialty Mercerizing Range Controller Oncology 01/16/20 Matt Penny [address] [place], [place] [id number] Referring Internal Medicine 04/04/24 Sole Leveling Machine Operator Relationship Specialty Start Date End Date Kendy Modi PCP - General Family Medicine 01/21/13 Bipin Ford MD [address] [place] [address] Physician Radiation Oncology 06/12/19 Jo Maria RN Specialty Mercerizing Range Controller Oncology 01/16/20 Matt Penny [address] [place], [place] [id number] Referring Internal Medicine 04/04/24 Sole Leveling Machine Operator Relationship Specialty Start Date End Date Kendy Modi PCP - General Family Medicine 01/21/13 Bipin Ford MD [address] [place], [place] [id number] [phone] Physician Radiation Oncology 06/12/19 Jo Maria RN Specialty Mercerizing Range Controller Oncology 01/16/20 Matt Penyn [address] [place], [place] [address] Referring Internal Medicine 04/04/24 Sole Leveling Machine Operator Relationship Specialty Start Date End Date Kendy Modi PCP - General Family Medicine 01/21/13 Bipin Ford MD [address] [place] [address] Physician Radiation Oncology 06/12/19 Jo Maria RN Specialty Mercerizing Range Controller Oncology 01/16/20 Matt Penny [address] [place] [address] Referring Internal Medicine 04/04/24 Sole Leveling Machine Operator Relationship Specialty Start Date End Date Kendy Modi PCP - General Family Medicine 01/21/13 Bipin Ford MD [address] [place], [place] [id number] Physician Radiation Oncology 06/12/19 Jo Maria, RN Specialty Mercerizing Range Controller Oncology 01/16/20 Matt Penny [address] [place], [place] [id number] Referring Internal Medicine 04/04/24 Sole Leveling Machine Operator Relationship Specialty Start Date End Date Kendy Modi PCP - General Family Medicine 01/21/13 Bipin Ford MD [address] [place], [place] [id number] Physician Radiation Oncology 06/12/19 Jo Maria RN Specialty Mercerizing Range Controller Oncology 01/16/20 Matt Penny [address] [place], [place] [id number] Referring Internal Medicine 04/04/24 Team Status: Active Member Role Status Dates Dr. Kendy Modi MD Primary Care Provider Active Team Status: Inactive Member Role Status Dates Dr. Kendy Modi MD Primary Care Provider Active Start: August 25, 2024 End: August 28, 2024 Dr. Kenzie Britton DO Emergency Provider Active Start: August 25, 2024 End: August 28, 2024 Dr. Ling Ford DO Admit Provider Active Start : August 25, 2024 End: August 28, 2024 Dr. Ling Ford DO Other Provider Active Start : August 25, 2024 End: August 28, 2024 Dr. Chris Collins MD Other Provider Active Start: August 25, 2024 End: August 28, 2024 Dr. Catherine Barton MD Attending Provider Active Start: August 25, 2024 End: August 28, 2024 Dr. Armando Ritchie MD Other Provider Active Start: August 25, 2024 End: August 28, 2024 Team Status: Active Member Role Status Dates Dr. Kendy Modi MD Primary Care Provider Active Start: August 26, 2024 Dr. Kenzie Britton DO Emergency Provider Active Start: August 26, 2024 Dr. Ling Ford DO Admit Provider Active Start : August 26, 2024 Dr. Ling Ford DO Other Provider Active Start : August 26, 2024 Dr. Chris Collins MD Other Provider Active Start: August 26, 2024 Dr. Catherine Barton MD Attending Provider Active Start: August 26, 2024 Dr. Catherine Barton MD Other Provider Active St art: August 26, 2024 Dr. Armando Ritchie MD Other Provider Active Start: August 26, 2024 Team Status: Active Member Role Status Dates Dr. Kendy Modi MD Primary Care Provider Active Start: August 27, 2024 Dr. Kenzie Britton DO Emergency Provider Active Start: August 27, 2024 Dr. Ling Ford DO Admit Provider Active Start : August 27, 2024 Dr. Ling Ford DO Other Provider Active Start : August 27, 2024 Dr. Chris Collins MD Other Provider Active Start: August 27, 2024 Dr. Catherine Barton MD Attending Provider Active Start: August 27, 2024 Dr. Catherine Barton MD Other Provider Active St art: August 27, 2024 Dr. Armando Ritchie MD Other Provider Active Start: August 27, 2024 Team Status: Active Member Role Status Dates Dr. Kendy Modi MD Primary Care Provider Active Start: August 28, 2024 Dr. Kenzie Britton DO Emergency Provider Active Start: August 28, 2024 Dr. Ling Ford DO Admit Provider Active Start : August 28, 2024 Dr. Ling Ford DO Other Provider Active Start : August 28, 2024 Dr. Chris Collins MD Other Provider Active Start: August 28, 2024 Dr. Catherine Barton MD Attending Provider Active Start: August 28, 2024 Dr. Catherine Barton MD Other Provider Active St art: August 28, 2024 Dr. Armando Ritchie MD Other Provider Active Start: August 28, 2024 Team Status: Active Member Role Status Dates Dr. Kendy Modi MD Primary Care Provider Active Start: October 10, 2024 Dr. Ross Crump DO Emergency Provider Active Start: October 10, 2024 Dr. Kendra Yuan MD Attending Provider Active Start: October 10, 2024 Team Status: Inactive Member Role Status Dates Dr. Kendy Modi MD Primary Care Provider Active Start: October 10, 2024 End: October 18, 2024 Dr. Ross Crump DO Emergency Provider Active Start: October 10, 2024 End: October 18, 2024 Dr. Kendra Yuan MD Admit Provider Active St art: October 10, 2024 End: October 18, 2024 Dr. Kendra Yuan MD Other Provider Active St art: October 10, 2024 End: October 18, 2024 Dr. Prateek Smith MD Other Provider Active Star t: October 10, 2024 End: October 18, 2024 Dr. Chris Collins MD Other Provider Active Start: October 10, 2024 End: October 18, 2024 Dr. Cy Arnett MD Other Provider Active Start: October 10, 2024 End: October 18, 2024 Dr. Armando Ritchie MD Other Provider Active Start: October 10, 2024 End: October 18, 2024 Dr. Nicole Smith MD Attending Provider Active Start: October 10, 2024 End: October 18, 2024 Dr. Matt Penny MD Other Provider Active Sta rt: October 10, 2024 End: October 18, 2024 Team Status: Active Member Role Status Dates Dr. Kendy Modi MD Primary Care Provider Active Start: October 10, 2024 Dr. Prateek Smith MD Attending Provider Active Start: October 10, 2024 Team Status: Active Member Role Status Dates Dr. Kendy Modi MD Primary Care Provider Active Start: October 10, 2024 Dr. Ross Crump DO Emergency Provider Active Start: October 10, 2024 Dr. Kendra Yuan MD Admit Provider Active St art: October 10, 2024 Dr. Kendra Yuan MD Other Provider Active St art: October 10, 2024 Dr. Prateek Smith MD Referring Provider Active Start: October 10, 2024 Dr. Prateek Smith MD Other Provider Active Star t: October 10, 2024 Dr. Pavan Vegas MD Other Provider Active Start: October 10, 2024 Dr. Bam Matta MD Other Provider Active Start: October 10, 2024 Dr. Moshe Owens MD Other Provider Active Star t: October 10, 2024 Dr. Reagan Fatima DO Attending Provider Active S tart: October 10, 2024 Dr. Reagan Fatima DO Other Provider Active Start : October 10, 2024 Dr. Tay Irizarry MD Other Provider Active Sta rt: October 10, 2024 Dr. Segun Alcala MD Other Provider Active St art: October 10, 2024 Dr. Michael Thomason MD Other Provider Active S tart: October 10, 2024 Dr. Carol Ann Mcmahan MD Other Provider Active Start: October 10, 2024 Dr. Jeremy Singh MD Other Provider Active Start : October 10, 2024 Dr. Phi Velázquez MD Other Provider Active Start: October 10, 2024 Dr. Ross Yañez MD Other Provider Active Start : October 10, 2024 Dr. Chela Gallagher MD Other Provider Active Star t: October 10, 2024 Dr. Byron Chinchilla MD Other Provider Active Sta rt: October 10, 2024 Dr. Emma Hall MD Other Provider Active Sta rt: October 10, 2024 Dr. Chucho Bales MD Other Provider Active Star t: October 10, 2024 Dr. Aaron Carrasco MD Other Provider Active St art: October 10, 2024 Dr. Daniel Hu MD Other Provider Active Star t: October 10, 2024 Dr. Jeffery Renteria DO Other Provider Active St art: October 10, 2024 Dr. Tristian De La Fuente MD Other Provider Active Start: October 10, 2024 Dr. Hedy Pa MD Other Provider Active St art: October 10, 2024 Dr. Yousif Snell DO Other Provider Active Start: October 10, 2024 Dr. Lul Calderon MD Other Provider Active Star t: October 10, 2024 Dr. Michel Cordova MD Other Provider Active Sta rt: October 10, 2024 Dr. Matt Penny MD Other Provider Active Sta rt: October 10, 2024 Dr. Armando Ritchie MD Other Provider Active Start: October 10, 2024 Team Status: Active Member Role Status Dates Dr. Kendy Modi MD Primary Care Provider Active Start: October 11, 2024 Dr. Ross Crump DO Emergency Provider Active Start: October 11, 2024 Dr. Kendra Yuan MD Admit Provider Active St art: October 11, 2024 Dr. Kendra Yuan MD Other Provider Active St art: October 11, 2024 Dr. Prateek Smith MD Other Provider Active Star t: October 11, 2024 Dr. Pavan Vegas MD Other Provider Active Start: October 11, 2024 Dr. Bam Matta MD Other Provider Active Start: October 11, 2024 Dr. Moshe Owens MD Other Provider Active Star t: October 11, 2024 Dr. Reagan Fatima DO Other Provider Active Start : October 11, 2024 Dr. Tay Irizarry MD Other Provider Active Sta rt: October 11, 2024 Dr. Segun Alcala MD Other Provider Active St art: October 11, 2024 Dr. Michael Thomason MD Other Provider Active S tart: October 11, 2024 Dr. Carol Ann Mcmahan MD Other Provider Active Start: October 11, 2024 Dr. Jeremy Singh MD Other Provider Active Start : October 11, 2024 Dr. Phi Velázquez MD Other Provider Active Start: October 11, 2024 Dr. Ross Yañez MD Other Provider Active Start : October 11, 2024 Dr. Chela Gallagher MD Other Provider Active Star t: October 11, 2024 Dr. Byron Chinchilla MD Other Provider Active Sta rt: October 11, 2024 Dr. Emma Hall MD Other Provider Active Sta rt: October 11, 2024 Dr. Chucho Bales MD Other Provider Active Star t: October 11, 2024 Dr. Aaron Carrasco MD Other Provider Active St art: October 11, 2024 Dr. Daniel Hu MD Other Provider Active Star t: October 11, 2024 Dr. Jeffery Renteria , Other Provider Active St art: October 11, 2024 Dr. Tristian De La Fuente MD Other Provider Active Start: October 11, 2024 Dr. Hedy Pa MD Other Provider Active St art: October 11, 2024 Dr. Yousif Snell DO Other Provider Active Start: October 11, 2024 Dr. Lul Calderon MD Other Provider Active Star t: October 11, 2024 Dr. Michel Cordova MD Other Provider Active Sta rt: October 11, 2024 Dr. Matt Penny MD Attending Provider Active Start: October 11, 2024 Dr. Matt Penny MD Other Provider Active Sta rt: October 11, 2024 Dr. Armando Ritchie MD Other Provider Active Start: October 11, 2024 Dr. Chris Collins MD Other Provider Active Start: October 11, 2024 Dr. Cy Arnett MD Other Provider Active Start: October 11, 2024 Team Status: Active Member Role Status Dates Dr. Kendy Modi MD Primary Care Provider Active Start: October 11, 2024 Dr. Ross Crump DO Emergency Provider Active Start: October 11, 2024 Dr. Kendra Yuan MD Admit Provider Active St art: October 11, 2024 Dr. Kendra Yuan MD Other Provider Active St art: October 11, 2024 Dr. Prateek Smith MD Referring Provider Active Start: October 11, 2024 Dr. Prateek Smith MD Other Provider Active Star t: October 11, 2024 Dr. Matt Penny MD Other Provider Active Sta rt: October 11, 2024 Dr. Armando Ritchie MD Other Provider Active Start: October 11, 2024 Dr. Chris Collins MD Other Provider Active Start: October 11, 2024 Dr. Cy Arnett MD Other Provider Active Start: October 11, 2024 Dr. Reagan Fatima DO Attending Provider Active S tart: October 11, 2024 Team Status: Active Member Role Status Dates Dr. Kendy Modi MD Primary Care Provider Active Start: October 11, 2024 Dr. Ross Crump , Emergency Provider Active Start: October 11, 2024 Dr. Kendra Yuan MD Admit Provider Active St art: October 11, 2024 Dr. Kendra Yuan MD Other Provider Active St art: October 11, 2024 Dr. Prateek Smith MD Attending Provider Active Start: October 11, 2024 Dr. Prateek Smith MD Other Provider Active Star t: October 11, 2024 Dr. Pavan Vegas MD Other Provider Active Start: October 11, 2024 Dr. Bam Matta MD Other Provider Active Start: October 11, 2024 Dr. Moshe Owens MD Other Provider Active Star t: October 11, 2024 Dr. Reagan Fatima , Other Provider Active Start : October 11, 2024 Dr. Tay Irizarry MD Other Provider Active Sta rt: October 11, 2024 Dr. Segun Alcala MD Other Provider Active St art: October 11, 2024 Dr. Michael Thomason MD Other Provider Active S tart: October 11, 2024 Dr. Carol Ann Mcmahan MD Other Provider Active Start: October 11, 2024 Dr. Jeremy Singh MD Other Provider Active Start : October 11, 2024 Dr. Phi Velázquez MD Other Provider Active Start: October 11, 2024 Dr. Ross Yañez MD Other Provider Active Start : October 11, 2024 Dr. Chela Gallagher MD Other Provider Active Star t: October 11, 2024 Dr. Byron Chinchilla MD Other Provider Active Sta rt: October 11, 2024 Dr. Emma Hall MD Other Provider Active Sta rt: October 11, 2024 Dr. Chucho Bales MD Other Provider Active Star t: October 11, 2024 Dr. Aaron Carrasco MD Other Provider Active St art: October 11, 2024 Dr. Daniel Hu MD Other Provider Active Star t: October 11, 2024 Dr. Jeffery Renteria , Other Provider Active St art: October 11, 2024 Dr. Tristian De La Fuente MD Other Provider Active Start: October 11, 2024 Dr. Hedy Pa MD Other Provider Active St art: October 11, 2024 Dr. Yousif Snell , Other Provider Active Start: October 11, 2024 Dr. Lul Calderon MD Other Provider Active Star t: October 11, 2024 Dr. Michel Cordova MD Other Provider Active Sta rt: October 11, 2024 Dr. Matt Penny MD Other Provider Active Sta rt: October 11, 2024 Dr. Armando Ritchie MD Other Provider Active Start: October 11, 2024 Dr. Chris Collins MD Other Provider Active Start: October 11, 2024 Dr. Cy Arnett MD Other Provider Active Start: October 11, 2024 Team Status: Active Member Role Status Dates Dr. Kendy Modi MD Primary Care Provider Active Start: October 12, 2024 Dr. Ross Crump DO Emergency Provider Active Start: October 12, 2024 Dr. Kendra Yuan MD Admit Provider Active St art: October 12, 2024 Dr. Kendra Yuan MD Other Provider Active St art: October 12, 2024 Dr. Matt Penny MD Other Provider Active Sta rt: October 12, 2024 Dr. Prateek Smith MD Attending Provider Active Start: October 12, 2024 Dr. Prateek Smith MD Other Provider Active Star t: October 12, 2024 Dr. Chris Collins MD Other Provider Active Start: October 12, 2024 Dr. Cy Arnett MD Other Provider Active Start: October 12, 2024 Dr. Armando Ritchie MD Other Provider Active Start: October 12, 2024 Team Status: Active Member Role Status Dates Dr. Kendy Modi MD Primary Care Provider Active Start: October 12, 2024 Dr. Ross Crump DO Emergency Provider Active Start: October 12, 2024 Dr. Kendra Yuan MD Admit Provider Active St art: October 12, 2024 Dr. Kendra Yuan MD Other Provider Active St art: October 12, 2024 Dr. Matt Penny MD Attending Provider Active Start: October 12, 2024 Dr. Matt Penny MD Other Provider Active Sta rt: October 12, 2024 Dr. Prateek Smith MD Other Provider Active Star t: October 12, 2024 Dr. Chris Collins MD Other Provider Active Start: October 12, 2024 Dr. Cy Arnett MD Other Provider Active Start: October 12, 2024 Dr. Armando Ritchie MD Other Provider Active Start: October 12, 2024 Team Status: Active Member Role Status Dates Dr. Kendy Modi MD Primary Care Provider Active Start: October 13, 2024 Dr. Ross Crump DO Emergency Provider Active Start: October 13, 2024 Dr. Kendra Yuan MD Admit Provider Active St art: October 13, 2024 Dr. Kendra Yuan MD Other Provider Active St art: October 13, 2024 Dr. Matt Penny MD Attending Provider Active Start: October 13, 2024 Dr. Matt Penny MD Other Provider Active Sta rt: October 13, 2024 Dr. Prateek Smith MD Other Provider Active Star t: October 13, 2024 Dr. Chris Collins MD Other Provider Active Start: October 13, 2024 Dr. Cy Arnett MD Other Provider Active Start: October 13, 2024 Dr. Armando Ritchie MD Other Provider Active Start: October 13, 2024 Team Status: Active Member Role Status Dates Dr. Kendy Modi MD Primary Care Provider Active Start: October 13, 2024 Dr. Rsos Crump DO Emergency Provider Active Start: October 13, 2024 Dr. Kendra Yuan MD Admit Provider Active St art: October 13, 2024 Dr. Kendra Yuan MD Other Provider Active St art: October 13, 2024 Dr. Matt Penny MD Other Provider Active Sta rt: October 13, 2024 Dr. Prateek Smith MD Attending Provider Active Start: October 13, 2024 Dr. Prateek Smith MD Other Provider Active Star t: October 13, 2024 Dr. Chris Collins MD Other Provider Active Start: October 13, 2024 Dr. Cy Arnett MD Other Provider Active Start: October 13, 2024 Dr. Armando Ritchie MD Other Provider Active Start: October 13, 2024 Team Status: Active Member Role Status Dates Dr. Kendy Modi MD Primary Care Provider Active Start: October 14, 2024 Dr. Ross Crump DO Emergency Provider Active Start: October 14, 2024 Dr. Kendra Yuan MD Admit Provider Active St art: October 14, 2024 Dr. Kendra Yuan MD Other Provider Active St art: October 14, 2024 Dr. Prateek Smith MD Other Provider Active Star t: October 14, 2024 Dr. Chris Collins MD Other Provider Active Start: October 14, 2024 Dr. Cy Arnett MD Other Provider Active Start: October 14, 2024 Dr. Armando Ritchie MD Other Provider Active Start: October 14, 2024 Dr. Nicole Smith MD Other Provider Active Star t: October 14, 2024 Dr. Matt Penny MD Other Provider Active Sta rt: October 14, 2024 Dr. Etienne Darden MD Attending Provider Active Start: October 14, 2024 Team Status: Active Member Role Status Dates Dr. Kendy Modi MD Primary Care Provider Active Start: October 14, 2024 Dr. Ross Crump DO Emergency Provider Active Start: October 14, 2024 Dr. Kendra Yuan MD Admit Provider Active St art: October 14, 2024 Dr. Kendra Yuan MD Other Provider Active St art: October 14, 2024 Dr. Prateek Smith MD Other Provider Active Star t: October 14, 2024 Dr. Chris Collins MD Other Provider Active Start: October 14, 2024 Dr. Cy Arnett MD Other Provider Active Start: October 14, 2024 Dr. Armando Ritchie MD Other Provider Active Start: October 14, 2024 Dr. Nicole Smith MD Attending Provider Active Start: October 14, 2024 Dr. Nicole Smith MD Other Provider Active Star t: October 14, 2024 Dr. Matt Penny MD Other Provider Active Sta rt: October 14, 2024 Team Status: Active Member Role Status Dates Dr. Kendy Modi MD Primary Care Provider Active Start: October 15, 2024 Dr. Ross Crump DO Emergency Provider Active Start: October 15, 2024 Dr. Kendra Yuan MD Admit Provider Active St art: October 15, 2024 Dr. Kendra Yuan MD Other Provider Active St art: October 15, 2024 Dr. Prateek Smith MD Other Provider Active Star t: October 15, 2024 Dr. Chris Collins MD Other Provider Active Start: October 15, 2024 Dr. Cy Arnett MD Other Provider Active Start: October 15, 2024 Dr. Armando Ritchie MD Other Provider Active Start: October 15, 2024 Dr. Nicole Smith MD Other Provider Active Star t: October 15, 2024 Dr. Matt Penny MD Other Provider Active Sta rt: October 15, 2024 Dr. Etienne Darden MD Attending Provider Active Start: October 15, 2024 Team Status: Active Member Role Status Dates Dr. Kendy Modi MD Primary Care Provider Active Start: October 15, 2024 Dr. Ross Crump DO Emergency Provider Active Start: October 15, 2024 Dr. Kendra Yuan MD Admit Provider Active St art: October 15, 2024 Dr. Kendra Yuan MD Other Provider Active St art: October 15, 2024 Dr. Prateek Smith MD Other Provider Active Star t: October 15, 2024 Dr. Chris Collins MD Other Provider Active Start: October 15, 2024 Dr. Cy Arnett MD Other Provider Active Start: October 15, 2024 Dr. Armando Ritchie MD Other Provider Active Start: October 15, 2024 Dr. Nicole Smith MD Attending Provider Active Start: October 15, 2024 Dr. Nicole Smith MD Other Provider Active Star t: October 15, 2024 Dr. Matt Penny MD Other Provider Active Sta rt: October 15, 2024 Team Status: Active Member Role Status Dates Dr. Kendy Modi MD Primary Care Provider Active Start: October 16, 2024 Dr. Ross Crump DO Emergency Provider Active Start: October 16, 2024 Dr. Kendra Yuan MD Admit Provider Active St art: October 16, 2024 Dr. Kendra Yuan MD Other Provider Active St art: October 16, 2024 Dr. Prateek Smith MD Other Provider Active Star t: October 16, 2024 Dr. Chris Collins MD Other Provider Active Start: October 16, 2024 Dr. Cy Arnett MD Other Provider Active Start: October 16, 2024 Dr. Armando Ritchie MD Other Provider Active Start: October 16, 2024 Dr. Nicole Smith MD Attending Provider Active Start: October 16, 2024 Dr. Nicole Smith MD Other Provider Active Star t: October 16, 2024 Dr. Matt Penny MD Other Provider Active Sta rt: October 16, 2024 Team Status: Active Member Role Status Dates Dr. eKndy Modi MD Primary Care Provider Active Start: October 17, 2024 Dr. Ross Crump DO Emergency Provider Active Start: October 17, 2024 Dr. Kendra Yuan MD Admit Provider Active St art: October 17, 2024 Dr. Kendra Yuan MD Other Provider Active St art: October 17, 2024 Dr. Prateek Smith MD Other Provider Active Star t: October 17, 2024 Dr. Chris Collins MD Other Provider Active Start: October 17, 2024 Dr. Cy Arnett MD Other Provider Active Start: October 17, 2024 Dr. Armando Ritchie MD Other Provider Active Start: October 17, 2024 Dr. Nicole Smith MD Attending Provider Active Start: October 17, 2024 Dr. Nicole Smith MD Other Provider Active Star t: October 17, 2024 Dr. Matt Penny MD Other Provider Active Sta rt: October 17, 2024 Team Status: Active Member Role Status Dates Dr. Kendy Modi MD Primary Care Provider Active Start: October 18, 2024 Dr. Ross Crump DO Emergency Provider Active Start: October 18, 2024 Dr. Kendra Yuan MD Admit Provider Active St art: October 18, 2024 Dr. Kendra Yuan MD Other Provider Active St art: October 18, 2024 Dr. Prateek Smith MD Other Provider Active Star t: October 18, 2024 Dr. Chris Collins MD Other Provider Active Start: October 18, 2024 Dr. Cy Arnett MD Other Provider Active Start: October 18, 2024 Dr. Armando Ritchie MD Other Provider Active Start: October 18, 2024 Dr. Nicole Smith MD Attending Provider Active Start: October 18, 2024 Dr. Nicole Smith MD Other Provider Active Star t: October 18, 2024 Dr. Matt Penny MD Other Provider Active Sta rt: October 18, 2024 Team Status: Inactive Member Role Status Dates Dr. Kendy Modi MD Primary Care Provider Active Start: October 21, 2024 End: October 21, 2024 Kendy MOLINA MD Attending Provider Active Start: October 21, 2024 End: October 21, 2024 Team Status: Inactive Member Role Status Dates Dr. Kendy Modi MD Primary Care Provider Active Start: October 30, 2024 End: October 30, 2024 Dr. Kendy Modi MD Referring Provider Active Start: October 30, 2024 End: October 30, 2024 Vishal Gonzalez AIRLINE STATION AGENT, AIRLINE STATION AGENT-C Attending Provider Active S tart: October 30, 2024 End: October 30, 2024 Team Status: Active Member Role Status Dates Dr. Kendy Modi MD Primary Care Provider Active Start: November 19, 2024 Dr. Kendy Modi MD Attending Provider Active Start: November 19, 2024 Dr. Kendy Modi MD Referring Provider Active Start: November 19, 2024 Team Status: Active Member Role Status Dates Dr. Kendy Modi MD Primary Care Provider Active Start: November 19, 2024 Dr. Kendy Modi MD Attending Provider Active Start: November 19, 2024 Team Status: Active Member Role Status Dates Dr. Kendy Modi MD Primary Care Provider Active Start: November 24, 2024 Dr. Ross Crump DO Emergency Provider Active Start: November 24, 2024 Dr. Claudio Devlin DO Admit Provider Active Start: November 24, 2024 Dr. Claudio Devlin DO Attending Provider Active Start: November 24, 2024 Team Status: Inactive Member Role Status Dates Dr. Kendy Modi MD Primary Care Provider Active Start: November 19, 2024 End: November 19, 2024 Dr. Kendy Modi MD Attending Provider Active Start: November 19, 2024 End: November 19, 2024 Dr. Kendy Modi MD Referring Provider Active Start: November 19, 2024 End: November 19, 2024 Team Status: Inactive Member Role Status Dates Dr. Kendy Modi MD Primary Care Provider Active Start: November 19, 2024 End: November 19, 2024 Dr. Kendy Modi MD Attending Provider Active Start: November 19, 2024 End: November 19, 2024 Team Status: Active Member Role Status Dates Dr. Kendy Modi MD Primary Care Provider Active Start: November 24, 2024 Dr. Ross Crump , Emergency Provider Active Start: November 24, 2024 Dr. Claudio Devlin , Admit Provider Active Start: November 24, 2024 Dr. Claudio Devlin DO Other Provider Active Start: November 24, 2024 Dr. Cy Arnett MD Other Provider Active Start: November 24, 2024 Dr. Miguel Angel Montez , Attending Provider Active Start: November 24, 2024 Team Status: Inactive Member Role Status Dates Dr. Kendy Modi MD Primary Care Provider Active Start: November 24, 2024 End: November 28, 2024 Dr. Ross Crump DO Emergency Provider Active Start: November 24, 2024 End: November 28, 2024 Dr. Claudio Devlin DO Admit Provider Active Start: November 24, 2024 End: November 28, 2024 Dr. Claudio Devlin , Other Provider Active Start: November 24, 2024 End: November 28, 2024 Dr. Cy Arnett MD Other Provider Active Start: November 24, 2024 End: November 28, 2024 Dr. Miguel Angel Montez DO Attending Provider Active Start: November 24, 2024 End: November 28, 2024 Team Status: Active Member Role Status Dates Dr. Kendy Modi MD Primary Care Provider Active Start: November 25, 2024 Dr. Ross Crump DO Emergency Provider Active Start: November 25, 2024 Dr. Claudio Devlin , Admit Provider Active Start: November 25, 2024 Dr. Claudio Devlin DO Other Provider Active Start: November 25, 2024 Dr. Cy Arnett MD Other Provider Active Start: November 25, 2024 Dr. Miguel Angel Montez DO Attending Provider Active Start: November 25, 2024 Dr. Miguel Angel Montez DO Other Provider Active S tart: November 25, 2024 Team Status: Active Member Role Status Dates Dr. Kendy Modi MD Primary Care Provider Active Start: November 26, 2024 Dr. Pk Shin MD Attending Provider Active S tart: November 26, 2024 Team Status: Active Member Role Status Dates Dr. Kendy Modi MD Primary Care Provider Active Start: November 26, 2024 Dr. Ross Crump , DO Emergency Provider Active Start: November 26, 2024 Dr. Claudio Devlin , DO Admit Provider Active Start: November 26, 2024 Dr. Claudio Devlin , DO Other Provider Active Start: November 26, 2024 Dr. Cy Arnett MD Other Provider Active Start: November 26, 2024 Dr. Miguel Angel Montez , DO Attending Provider Active Start: November 26, 2024 Dr. Miguel Angel Montez , DO Other Provider Active S tart: November 26, 2024 Team Status: Active Member Role Status Dates Dr. Kendy Modi MD Primary Care Provider Active Start: November 27, 2024 Dr. Ross Crump , DO Emergency Provider Active Start: November 27, 2024 Dr. Claudio Devlin , DO Admit Provider Active Start: November 27, 2024 Dr. Claudio Devlin , DO Other Provider Active Start: November 27, 2024 Dr. Cy Arnett MD Other Provider Active Start: November 27, 2024 Dr. Miguel Angel Montez , Attending Provider Active Start: November 27, 2024 Dr. Miguel Angel Montez , DO Other Provider Active S tart: November 27, 2024 Team Status: Active Member Role Status Dates Dr. Kendy Modi MD Primary Care Provider Active Start: November 28, 2024 Dr. Ross Crmup , DO Emergency Provider Active Start: November 28, 2024 Dr. Claudio Devlin , DO Admit Provider Active Start: November 28, 2024 Dr. Claudio Devlin , DO Other Provider Active Start: November 28, 2024 Dr. Cy Arnett MD Other Provider Active Start: November 28, 2024 Dr. Miguel Angel Montez , Attending Provider Active Start: November 28, 2024 Dr. 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 Kendy Modi MD Primary Care Provider Active Start: November 19, 2024 End: November 19, 2024 Dr. Kendy Modi MD Attending Provider Active Start: November 19, 2024 End: November 19, 2024 Dr. Kendy Modi MD Referring Provider Active Start: November 19, 2024 End: November 19, 2024 Team Status: Inactive Member Role/Relationship Status Dates Dr. Kendy Modi MD Primary Care Provider Active Start: November 19, 2024 End: November 19, 2024 Dr. Kendy Modi MD Attending Provider Active Start: November 19, 2024 End: November 19, 2024 Team Status: Inactive Member Role/Relationship Status Dates Dr. Kendy Modi MD Primary Care Provider Active Start: November 24, 2024 End: November 28, 2024 Dr. Ross Crump DO Emergency Provider Active Start: November 24, 2024 End: November 28, 2024 Dr. Claudio Devlin DO Admit Provider Active Start: November 24, 2024 End: November 28, 2024 Dr. Claudio Devlin DO Other Provider Active Start: November 24, 2024 End: November 28, 2024 Dr. Cy Arnett MD Other Provider Active Start: November 24, 2024 End: November 28, 2024 Dr. Miguel Angel Montez DO Attending Provider Active Start: November 24, 2024 End: November 28, 2024 Team Status: Active Member Role/Relationship Status Dates Dr. Kendy Modi MD Primary Care Provider Active Start: November 25, 2024 Dr. Ross Crump DO Emergency Provider Active Start: November 25, 2024 Dr. Claudio Devlin , DO Admit Provider Active Start: November 25, 2024 Dr. Claudio Devlin , DO Other Provider Active Start: November 25, 2024 Dr. Cy Arnett MD Other Provider Active Start: November 25, 2024 Dr. Miguel Angel Montez , DO Attending Provider Active Start: November 25, 2024 Dr. Miguel Angel Montez , DO Other Provider Active S tart: November 25, 2024 Team Status: Active Member Role/Relationship Status Dates Dr. Kendy Modi MD Primary Care Provider Active Start: November 26, 2024 Dr. Pk Shin MD Attending Provider Active S tart: November 26, 2024 Team Status: Active Member Role/Relationship Status Dates Dr. Kendy Modi MD Primary Care Provider Active Start: November 26, 2024 Dr. Ross Crump , Emergency Provider Active Start: November 26, 2024 Dr. Claudio Devlin , DO Admit Provider Active Start: November 26, 2024 Dr. Claudio Devlin , DO Other Provider Active Start: November 26, 2024 Dr. Cy Arnett MD Other Provider Active Start: November 26, 2024 Dr. Miguel Angel Montez , DO Attending Provider Active Start: November 26, 2024 Dr. Miguel Angel Montez , DO Other Provider Active S tart: November 26, 2024 Team Status: Active Member Role/Relationship Status Dates Dr. Kendy Modi MD Primary Care Provider Active Start: November 27, 2024 Dr. Ross Crump , DO Emergency Provider Active Start: November 27, 2024 Dr. Claudio Devlin , DO Admit Provider Active Start: November 27, 2024 Dr. Claudio Devlin , DO Other Provider Active Start: November 27, 2024 Dr. Cy Arnett MD Other Provider Active Start: November 27, 2024 Dr. Miguel Angel Montez , DO Attending Provider Active Start: November 27, 2024 Dr. Miguel Angel Montez , DO Other Provider Active S tart: November 27, 2024 Team Status: Active Member Role/Relationship Status Dates Dr. Kendy Modi MD Primary Care Provider Active Start: November 28, 2024 Dr. Ross Crump , DO Emergency Provider Active Start: November 28, 2024 Dr. Claudio Devlin DO Admit Provider Active Start: November 28, 2024 Dr. Claudio Devlni DO Other Provider Active Start: November 28, 2024 Dr. Cy Arnett MD Other Provider Active Start: November 28, 2024 Dr. Miguel Angel Montez DO Attending Provider Active Start: November 28, 2024 Dr. Miguel Angel Montez DO Other Provider Active S tart: November 28, 2024 Team Status: Inactive Member Role/Relationship Status Dates Dr. Ross Crump DO Attending Provider Active Start: December 02, 2024 End: December 03, 2024 Dr. Ross Crump DO Emergency Provider Active Start: December 02, 2024 End: December 03, 2024 Dr. Dwayne Aldana MD Primary Care Provider Active Start: December 02, 2024 End: December 03, 2024 Team Status: Inactive Member Role/Relationship Status Dates Dr. Dwayne Aldana MD Primary Care Provider Active Start: December 09, 2024 End: December 09, 2024 Dr. Dwayne Aldana MD Referring Provider Active Start: December 09, 2024 End: December 09, 2024 Tereza Brito AIRLINE STATION AGENT, AIRLINE STATION AGENT-C Attending Provider Active Start: December 09, 2024 End: December 09, 2024 Team Status: Inactive Member Role/Relationship Status Dates Dr. Dwayne Aldana MD Referring Provider Active Start: March 17, 2025 End: March 17, 2025 Tereza Brito AIRLINE STATION AGENT, AIRLINE STATION AGENT-C Attending Provider Active Start: March 17, 2025 End: March 17, 2025 Dre De Los Santos MD Primary Care Provider Active St art: March 17, 2025 End: March 17, 2025 Team Status: Inactive Member Role/Relationship Status Dates Dr. Kendy Modi MD Primary Care Provider Active Start: November 24, 2024 End: November 28, 2024 Dr. Ross Crump DO Emergency Provider Active Start: November 24, 2024 End: November 28, 2024 Dr. Claudio Devlin DO Admit Provider Active Start: November 24, 2024 End: November 28, 2024 Dr. Claudio Devlin DO Other Provider Active Start: November 24, 2024 End: November 28, 2024 Dr. Cy Arnett MD Other Provider Active Start: November 24, 2024 End: November 28, 2024 Dr. Miguel Angel Montez , DO Attending Provider Active Start: November 24, 2024 End: November 28, 2024 Team Status: Active Member Role/Relationship Status Dates Dr. Kendy Modi MD Primary Care Provider Active Start: November 25, 2024 Dr. Ross Crump , DO Emergency Provider Active Start: November 25, 2024 Dr. Claudio Devlin , DO Admit Provider Active Start: November 25, 2024 Dr. Claudio Devlin , DO Other Provider Active Start: November 25, 2024 Dr. Cy Arnett MD Other Provider Active Start: November 25, 2024 Dr. Miguel Angel Montez , DO Attending Provider Active Start: November 25, 2024 Dr. Miguel Angel Montez , DO Other Provider Active S tart: November 25, 2024 Team Status: Active Member Role/Relationship Status Dates Dr. Kendy Modi MD Primary Care Provider Active Start: November 26, 2024 Dr. Pk Shin MD Attending Provider Active S tart: November 26, 2024 Team Status: Active Member Role/Relationship Status Dates Dr. Kendy Modi MD Primary Care Provider Active Start: November 26, 2024 Dr. Ross Crump , DO Emergency Provider Active Start: November 26, 2024 Dr. Claudio Devlin , DO Admit Provider Active Start: November 26, 2024 Dr. Claudio Devlin , DO Other Provider Active Start: November 26, 2024 Dr. Cy Arnett MD Other Provider Active Start: November 26, 2024 Dr. Miguel Angel Montez , DO Attending Provider Active Start: November 26, 2024 Dr. Miguel Angel Montez , DO Other Provider Active S tart: November 26, 2024 Team Status: Active Member Role/Relationship Status Dates Dr. Kendy Modi MD Primary Care Provider Active Start: November 27, 2024 Dr. Ross Crump , DO Emergency Provider Active Start: November 27, 2024 Dr. Claudio Devlin , DO Admit Provider Active Start: November 27, 2024 Dr. Claudio Devlin , DO Other Provider Active Start: November 27, 2024 Dr. Cy Arnett MD Other Provider Active Start: November 27, 2024 Dr. Miguel Angel Montez , DO Attending Provider Active Start: November 27, 2024 Dr. Miguel Angel Montez , Other Provider Active S tart: November 27, 2024 Team Status: Active Member Role/Relationship Status Dates Dr. Kendy Modi MD Primary Care Provider Active Start: November 28, 2024 Dr. Ross Crump DO Emergency Provider Active Start: November 28, 2024 Dr. Claudio Devlin , DO Admit Provider Active Start: November 28, 2024 Dr. Claudio Devlin DO Other Provider Active Start: November 28, 2024 Dr. Cy Arnett MD Other Provider Active Start: November 28, 2024 Dr. Miguel Angel Montez DO Attending Provider Active Start: November 28, 2024 Dr. Miguel Angel Montez DO Other Provider Active S tart: November 28, 2024 Team Status: Inactive Member Role/Relationship Status Dates Dr. Ross Crump DO Attending Provider Active Start: December 02, 2024 End: December 03, 2024 Dr. Ross Crump DO Emergency Provider Active Start: December 02, 2024 End: December 03, 2024 Dr. Dwayne Aldana MD Primary Care Provider Active Start: December 02, 2024 End: December 03, 2024 Team Status: Inactive Member Role/Relationship Status Dates Dr. Dwayne Aldana MD Primary Care Provider Active Start: December 09, 2024 End: December 09, 2024 Dr. Dwayne Aldana MD Referring Provider Active Start: December 09, 2024 End: December 09, 2024 Tereza Brito AIRLINE STATION AGENT, AIRLINE STATION AGENT-C Attending Provider Active Start: December 09, 2024 End: December 09, 2024 Team Status: Inactive Member Role/Relationship Status Dates Dr. Dwayne Aldana MD Referring Provider Active Start: March 17, 2025 End: March 17, 2025 Tereza Brito NP, AIRLINE STATION AGENT-C Attending Provider Active Start: March 17, 2025 End: March 17, 2025 Dre De Los Santos MD Primary Care Provider Active St art: March 17, 2025 End: March 17, 2025 Team Status: Inactive Member Role/Relationship Status Dates Dre De Los Santos MD Primary Care Provider Active St art: March 17, 2025 End: March 17, 2025 Tereza Brito AIRLINE STATION AGENT, AIRLINE STATION AGENT-C Attending Provider Active Start: March 17, 2025 End: March 17, 2025 Tereza Brito AIRLINE STATION AGENT, AIRLINE STATION AGENT-C Referring Provider Active Start: March 17, 2025 End: March 17, 2025 Reason for Visit (unrecogniz ed section and content) Reason Comments Radiology CT Specialty Diagnoses / Procedures Referred By Contac t Referred To Contact CT IMAGING Diagnoses Rectal cancer (HCC) Procedures CT CHEST W IVCON CAT SCAN OF CHEST CONTRAST Everardo Yusuf APRN.CLOUD DEVELOPER [address] [place] [address] Ct Imaging Referral ID Status Reason Start Date Expiration Date V isits Requested Visits Authorized [id number] Closed Auto-Generate d Referral 11/05/2021 12/04/2021 1 1 Reason Comments Results Reason Comments Established Patient Reason Comments Radiology MRI Specialty Diagnoses / Procedures Referred By Contac t Referred To Contact Radiology / IMAGING Diagnoses Malignant neoplasm of rectum Abnormal findings on diagnostic imaging of liver and biliary tract Rectal cancer (HCC) [C20] Abnormal MRI, liver [R93.2] Procedures MRI ABDOMEN W/O & W/CONTRAST MATERIAL MRI WWO ABD 300 Everardo Yusuf APRN.CLOUD DEVELOPER [address] [place] [address] Radio M[facility] [place] [address] [place] [address] Referral ID Status Reason Start Date Expiration Date Visits Re quested Visits Authorized [id number] Closed 03/02/2022 03/31/2022 1 1 Reason Comments Refill Request Reason Comments New Patient Colostomy complicati on . Specialty Diagnoses / Procedures Referred By Contac t Referred To Contact General Surgery Diagnoses Colostomy complication Kendy Modi MD [address] [place] [address] [facility] [address] [place] [address] Referral ID Status Reason Start Date Expiration Date V isits Requested Visits Authorized [id number] Pending Review 03/24/2023 04/17/2024 1 1 Reason Comments Patient Question Reason Comments Radiology CT Specialty Diagnoses / Procedures Referred By Contac t Referred To Contact CT IMAGING Diagnoses Rectal cancer (HCC) Elevated CEA Procedures CT CHEST W IVCON DIAGNOSTIC COMPUTED TOMOGRAPHY THORAX W/CONTRAST Everardo Yusuf, CREDIT CONSULTANT.CLOUD DEVELOPER [address] [place] [address] [place] [address] Referral ID Status Reason Start Date Expiration Date V isits Requested Visits Authorized [id number] Closed Auto-Generate d Referral 05/26/2023 06/24/2023 1 1 Specialty Diagnoses / Procedures Referred By Araceli t Referred To Contact CT IMAGING Diagnoses Rectal cancer (HCC) Elevated CEA Procedures CT CHEST W IVCON DIAGNOSTIC COMPUTED TOMOGRAPHY THORAX W/CONTRAST Everardo Yusuf, CREDIT CONSULTANT.CLOUD DEVELOPER [address] [place] [address] [place] [address] Reason Onset Date Comments Refill Request 07/03/2023 Reason Comments Follow-up Follow up visit, elizalde s have soreness and bleeding. He does get blisters that form, he thinks it could be from friction. 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 [facility] [address] [place] [address] [facility] [address] [place] [address] Referral ID Status Reason Start Date Expiration Date Visits Re quested Visits Authorized [id number] 1 1 Reason Comments CoPat Start Reason Comments CoPat Stop Reason Comments Phone encounter Reason Comments Urinary Retention Catheter in place si nce November 2023, changed multiple times, tried a couple times without but still retained urine Reason Comments Orders Results Reason Comments Cystoscopy-1 Reason Comments Established Patient Stoma issues Reason Comments IR SPT scheduling Reason Comments Follow Up Reason Comments Follow Up Reason Comments Returning Patient's Call Reason Comments Rectal Cancer Reason Comments Tube Change-suprapubic Reason Comments Home Care Reason Comments Orders Reason Onset Date Comments Refill Request 11/13/2024 Reason Comments Established Patient 3 month follow up/hardy prapubic catheter Scheduled Active and Recently Administ ered Medications (unrecognized section and content) Medication Order 11/26/2023 11/27/2023 11/28/2023 amLODIPine (NORVASC) tablet 5 mg 5 mg, Oral, DAILY, First dose on Mon11/15/23 at 0900, Until Discontinued, On hold since 11/27/2023 at 0923 until manually unheld 0846 (Given - Provider: Brooklyn Pandey RN) 0923 (Held by provider - Provider: Blanca Jimenez MD - Reason: Order Parameters not met)09 (Not Given - Provider: Aj Calloway RN - Reason: Contraindicated) 0900 (Automatically Held - Provider: Blanca Jimenez MD)1622 (Unheld by provider - Provider: System Discharge) aspirin chewable tablet 81 mg 81 mg, Oral, DAILY, First dose on Mon11/12/23 at 0900, Until Discontinued 0846 (Given - Provider: Brooklyn Pandey RN) 09 (Given - Provider: Aj Calloway RN) 09 (Given - Provider: Emilee Au RN) balsam-castor oil (VENELEX) ointment 1 Application 1 Application, Topical, EVERY 8 HOURS, First dose on [place] 11/16/23 at 1600, Until Discontinued, Apply to bony prominences (like back, heels, elbows, sacrum, etc.) to promote circulation., Post-op/Post-Proc 0403 (Not Given - Provider: Brian Goodrich RN - Reason: Patient/family refused)1400 (Not Given - Provider: Brooklyn Pandey RN - Reason: Patient sleeping)2111 (Not Given - Provider: Brian Goodrich RN - Reason: Patient/family refused) 0441 (Not Given - Provider: Brian Goodrich RN - Reason: Patient/family refused)1307 (Not Given - Provider: Aj Calloway RN - Reason: Patient/family refused)202 (Not Given - Provider: Patricia Rand RN - Reason: Patient/family refused) 0600 (Not Given - Provider: Regina Cabezas RN - Reason: Patient/family refused)1317 (Not Given - Provider: Emilee Au RN - Reason: Order Parameters not met) carveDILOL (COREG) tablet 12.5 mg 12.5 mg, Oral, EVERY 12 HOURS, First dose (after last modification) on Mon11/13/23 at 2100, Until Discontinued 0846 (Given - Provider: Brooklyn Pandey RN)2112 (Given - Provider: Brian Goodrich RN) 929 (Given - Provider: Aj Calloway RN)2022 (Given - Provider: Patricia Rand RN) 910 (Given - Provider: Emilee Au, RN) Clopidogrel (PLAVIX) tablet 75 mg 75 mg, Oral, DAILY, First dose on Mon11/15/23 at 0900, Until Discontinued 08 (Given - Provider: Brooklyn Pandey RN) 09 (Given - Provider: Aj Calloway, RASHI) 910 (Given - Provider: Emliee Au, RN) DULoxetine (CYMBALTA) capsule DR 60 mg 60 mg, Oral, DAILY AT BEDTIME, First dose on Mon11/12/23 at 2100, Until Discontinued, Swallow capsule whole; do not crush or chew. May add contents of capsule to apple juice or applesauce (but NOT chocolate) taking care not to crush the pellets and damage the enteric coating. 2112 (Given - Provider: Brian Goodrich RN) 2022 (Given - Provider: Patricia Rand RN) Gabapentin (NEURONTIN) capsule 300 mg 300 mg, Oral, DAILY AT BEDTIME, First dose on Mon11/12/23 at 2100, Until Discontinued 2112 (Given - Provider: Brian Goodrich RN) 2022 (Given - Provider: Patricia Rand RN) Heparin injection 5,000 Units(Linked Group 1) 5,000 Units, Subcutaneous, EVERY 8 HOURS (0800/1600/2200), First dose on Mon11/21/23 at 0800, Until Discontinued 845 (Given - Provider: Brooklyn Pandey RN)171 (Given - Provider: Brooklyn Pandey RN)2112 (Given - Provider: Brian Goodrich RN) 930 (Given - Provider: Aj Calloway, RASHI)170 (Given - Provider: Aj Calloway, RASHI)2139 (Given - Provider: Patricia Rand, RASHI) 09 (Given - Provider: Emilee Au RN)1600 (Canceled Entry - Provider: System Discharge - Comment: Automatically canceled at discontinue of medication order) insulin glargine-yfgn (SEMGLEE) injection 30 Units(Linked Group 2) 30 Units, Subcutaneous, EVERY 12 HOURS NON-STANDARD, First dose (after last modification) on Mon11/25/23 at 2200, Until Discontinued, Do not mix in syringe with other insulins. 09 (Given - Provider: Brooklyn Pandey RN)2112 (Given - Provider: Brian Goodrich, RN) 09 (Given - Provider: Aj Calloway RN)2022 (Given - Provider: Patricia Rand, RASHI) 09 (Given - Provider: Emilee Au, RASHI) Insulin lispro (HUMALOG) injection(Linked Group 3) Subcutaneous, 4 TIMES DAILY WITH MEALS & AT BEDTIME, First dose (after last modification) on 11/25/23 at 0845, Until Discontinued, Insulin to carb ratio: Non-Standard: 1 unit insulin = 5 grams carbs every meal and at bedtime Correction Factor: 151-175 = 1 unit 176-200 = 2 units 201-225 = 3 units 226-250 = 4 units 251-275 = 5 units 276-300 = 6 units 301-325 = 7 units 326-350 = 8 units 351-375 = 9 units 376-400 = 10 units Kwikpen: Prime pen before each injection; refer to Pen Priming and Care Handout for further details. Warning! Confirm patient. Insulin pen is for labeled individual patient use ONLY. 0927 (Given - Provider: Brooklyn Pandey RN)1251 (Given - Provider: Brooklyn Pandey RN)1711 (Given - Provider: Brooklyn Pandey RN)2112 (Given - Provider: Brian Goodrich, RASHI) 0938 (Not Given - Provider: Aj Calloway RN - Reason: Contraindicated - Comment: Did not eat breakfast)1305 (Given - Provider: Aj Calloway RN)1828 (Not Given - Provider: Aj Calloway RN - Reason: Contraindicated - Comment: Patient has not eaten yet)2025 (Not Given - Provider: Patricia Rand RN - Reason: Order Parameters not met) 0912 (Not Given - Provider: Emilee Au RN - Reason: Order Parameters not met)1245 (Given - Provider: Emilee Au, RASHI) Pantoprazole (PROTONIX) tablet DR 40 mg 40 mg, Oral, DAILY, First dose on 11/12/23 at 1145, Until Discontinued, Swallow whole; do not crush or chew., Indications: Continuation of Home Therapy, GERD 0846 (Given - Provider: Brooklyn Pandey RN) 0930 (Given - Provider: Aj Calloway RN) 0912 (Given - Provider: Emilee Au RN) Perflutren Lipid Microsphere (DEFINITY) 1.5 mL in Normal saline flush 0.9% 8.5 mL (COMPLETED) 10 mL, Intravenous, ONCE, 1 dose, On Mon11/28/23 at 0915, FOR ECHO PROCEDURE ONLY Dilute 1.3 mL of Definity with 8.7 mL of 0.9% sodium chloride and draw up in a 10 mL syringe. Administration during procedure as directed by physician. Recorded MAR dose is cumulative amount given during procedure., Echo Procedure 0847 (Given - Radiology - Provider: Dulce Maria Rowland RN) Polyethylene glycol (MIRALAX) packet 17 g 17 g, Oral, DAILY, First dose on Mon11/17/23 at 0900, Until Discontinued, Post-op/Post-Proc 0848 (Not Given - Provider: Brooklyn Pandey RN - Reason: Order Parameters not met) 0930 (Given - Provider: Aj Calloway RN) 0912 (Not Given - Provider: Emilee Au RN - Reason: Order Parameters not met) Rosuvastatin (CRESTOR) tablet 40 mg 40 mg, Oral, DAILY, First dose (after last modification) on Mon11/14/23 at 0900, Until Discontinued 0846 (Given - Provider: Brooklyn Pandey RN) 0930 (Given - Provider: Aj Calloway RN) 0911 (Given - Provider: Emilee Au RN) Tamsulosin HCl (FLOMAX) capsule 0.4 mg 0.4 mg, Oral, DAILY, First dose on Mon11/24/23 at 1445, Until Discontinued, Slow release product. Do not chew or crush, On hold since Mon11/27/2023 at 0923 until manually unheld 0846 (Given - Provider: Brooklyn Pandey RN) 0923 (Held by provider - Provider: Blanca Jimenez MD - Reason: Order Parameters not met)0930 (Not Given - Provider: Aj Calloway RN - Reason: Contraindicated) 0900 (Automatically Held - Provider: Blanca Jimenez MD)1622 (Unheld by provider - Provider: System Discharge) PRN Medication Order 11/26/2023 11/27/2023 11/28/2023 Acetaminophen (TYLENOL) tablet 650 mg(Linked Group 4) 650 mg, Oral, EVERY 4 HOURS NEEDED, Starting on 11/20/23 at 0000, Until Mon11/28/23 at 1622, Mild Pain, Moderate Pain, Severe Pain, Oral temp > 100.4 F, For mild, moderate, or severe pain (DVPRS) or CPOT greater than 2. Ok to give with opioid if frequency allows., Post-op/Post-Proc 2022 (Given - Provider: Patricia Rand RN) alum/mag hydrox.-simethicone oral suspension 30 mL 30 mL, Oral, EVERY 6 HOURS NEEDED, Starting on Mon11/12/23 at 0922, Until Mon11/28/23 at 1622, Indigestion, Per 5 mL is equivalent to: (Alum-Mag Hydroxide 200-225 mg and Simethicone 20 mg) and (Alum-Mag Hydroxide 200-200 mg and Simethicone 20 mg) bisacodyl (DULCOLAX) suppository 10 mg 10 mg, Rectal, DAILY NEEDED, Starting on [place] 11/16/23 at 1555, Until Mon11/28/23 at 1622, Other, If no bowel movement in 24 Hours., Post-op/Post-Proc Calcium Gluconate 10 % injection 2 g(Linked Group 5) 2 g, Intravenous, ADMINISTER DIRECTED, Starting on [place] 11/23/23 at 0356, Until Mon11/28/23 at 1622, See admin instructions, 1. If ionized Calcium 4.1-4.5, give 2.0 gm of Calcium Gluconate IV Push over 10 minutes 2. If Calcium less than or equal to 4.0, give 4 gm Calcium Gluconate/250 mL NS IVPB over 1 hour and recheck 1 hours after completion of infusion. Repeat labs in AM. Extravasation Risk 0403 (Given - Provider: Brian Goodrich RN) 0548 (Given - Provider: Regina Cabezas RN) Calcium Gluconate 4 g in Sodium chloride 0.9%, with overfill 150 mL (total volume) IVPB(Linked Group 5) 4 g, Intravenous, Administer over 60 Minutes, ADMINISTER DIRECTED, Starting on [place] 11/23/23 at 0356, Until Mon11/28/23 at 1622, See admin instructions, 1. If ionized Calcium 4.1-4.5, give 2.0 gm of Calcium Gluconate IV Push over 10 minutes 2. If Calcium less than or equal to 4.0, give 4 gm Calcium Gluconate/250 mL NS IVPB over 1 hour and recheck 1 hours after completion of infusion. Repeat labs in AM. Extravasation Risk 0403 (See Alternative - Provider: Brian Goodrich, RN) 0548 (See Alternative - Provider: Regina Cabezas RN) Dextrose 50% injection 7.5-25 g(Linked Group 3) 7.5-25 g, Intravenous, ADMINISTER DIRECTED, Starting on 11/25/23 at 0843, Until Mon11/28/23 at 1622, Blood glucose <80 mg/dL, For patients who are not alert, are NPO, or are on IV insulin infusion administer as directed per Hypoglycemia in Non- Adults Clinical Practice Guideline. For Blood Glucose: 60-79 mg/dL administer 7.5 gm (15ml); 45-59 mg/dL administer 12.5 gm (25ml); less than 45mg/dL administer 25gm (50ml). ++ If additional dextrose 50% needed, contact pharmacy or obtain from [employer] cart ++ glucose (GLUTOSE) 40 % oral gel 1-2 Tube(Linked Group 3) 1-2 Tube, Oral, ADMINISTER DIRECTED, Starting on 11/25/23 at 0843, Until Mon11/28/23 at 1622, Blood glucose <80 mg/dL, For patients who are alert, able to tolerate PO intake and with intact cognitive status administer as directed per Hypoglycemia in Non- Adults Clinical Practice Guideline. For Blood Glucose: 60-79 mg/dL administer 1 tube; 45-59 mg/dl administer 1.5 tubes; less than 45 mg/dL administer 2 tubes. Each tube of 37.5g delivers 15g of carbohydrate. hydrALAZINE (APRESOLINE) injection 5 mg 5 mg, Intravenous, EVERY 6 HOURS NEEDED, Starting on 11/20/23 at 0511, Until Mon11/28/23 at 1622, SBP >140 mmHg and MAP >70 Insulin lispro (HUMALOG) injection(Linked Group 3) Subcutaneous, NEEDED, Starting on 11/25/23 at 0843, Until Mon11/28/23 at 1622, Other, As needed for snacks, Insulin to carb ratio: Non Standard: 1 unit insulin = 5 grams carbs Correction Factor: not to be used with this order. Kwikpen: Prime pen before each injection; refer to Pen Priming and Care Handout for further details. Warning! Confirm patient. Insulin pen is for labeled individual patient use ONLY. Labetalol (NORMODYNE) injection 10 mg 10 mg, Intravenous, EVERY 6 HOURS NEEDED, Starting on 11/20/23 at 0718, Until Mon11/28/23 at 1622, SBP > 160 mmHg with HR >60 bpm, Administration duration: up to 20 mg over 2 minutes. Telemetry required except for [facility] patients on Ha Floors 6 and 7. For vials: labetalol should be treated as a SINGLE USE VIAL. Discard remaining contents after one use. Magnesium sulfate 4 g in sterile water 50 ml premix IVPB 4 g, Intravenous, Administer over 4 Hours, ADMINISTER DIRECTED, Starting on [place] 11/23/23 at 0356, Until Mon11/28/23 at 1622, Other, Magnesium Replacement Therapy, Magnesium Replacement Therapy: 1. If Magnesium less than 2, give 4 g Magnesium Sulfate IVPB over 4 hours (may give over 2 hours if arrhythmias present). 2. If Patient has ectopy/arrhythmia and Magnesium is less than 3, give 4 g Magnesium Sulfate IVPB over 2 hours. 0405 ($$New Bag$$ - Provider: Brian Goodrich RN)0729 (Stopped - Provider: Brooklyn Pandey RN) 0550 ($$New Bag$$ - Provider: Brian Goodrich RN) Ondansetron (ZOFRAN) tablet 4 mg(Linked Group 6) 4 mg, Oral, EVERY 6 HOURS NEEDED, Starting on [place] 11/16/23 at 1555, Until Mon11/28/23 at 1622, Nausea / Vomiting, 1st Line, Post-op/Post-Proc Ondansetron 4mg/2ml (ZOFRAN) injection 4 mg(Linked Group 6) 4 mg, Intravenous, EVERY 6 HOURS NEEDED, Starting on [place] 11/16/23 at 1555, Until Mon11/28/23 at 1622, Nausea / Vomiting, 1st line, If patient unable to tolerate PO., Post-op/Post-Proc oxyCODONE (ROXICODONE) tablet 5 mg(Linked Group 7) 5 mg, Oral, EVERY 4 HOURS NEEDED, Starting on [place] 11/16/23 at 1555, Until Mon11/28/23 at 1622, Moderate Pain, Severe Pain, PRN for moderate pain or severe pain (DVPRS) or CPOT>2. Use first if PO/NG administration available., Post-op/Post-Proc Phenol (CHLORASEPTIC) 1.4 % oral spray 2 spray 2 spray, Mouth/Throat, NEEDED, Starting on 11/17/23 at 2337, Until Mon11/28/23 at 1622, Sore Throat, Patient may self-administer. Potassium chloride (K-DUR) tablet ER 20 mEq 20 mEq, Oral, ADMINISTER DIRECTED, Starting on 11/19/23 at 0308, Until Mon11/28/23 at 1622, See admin instructions, RENAL DOSAGE, 1. If Creatinine 2.0-2.5 mg/dL and/or urine output less than 30 mL/hour. 2. Potassium Less than 3.6, give 20 mEq Potassium Chloride, recheck in 8 hours. 3. If Creatinine greater than 2.5 consult critical care team for Potassium less than 4.0 for replacement orders. 4. If Potassium low, replace magnesium first if indicated. Potassium chloride (K-DUR) tablet ER 20-60 mEq 20-60 mEq, Oral, ADMINISTER DIRECTED, Starting on 11/19/23 at 0308, Until Mon11/28/23 at 1622, See admin instructions, 1. If Creatinine less than 2.0 mg/dL and/or urine output greater than 30 mL/hour. 2. If Potassium is 4.1-4.4, give 20 mEq Potassium Chloride oral. 3. If Potassium is 3.6-4.0, give 40 mEq Potassium Chloride oral. 4. If Potassium less than 3.6, give 60 mEq Potassium Chloride orally, recheck in 8 hours. 5. If Potassium low, replace Magnesium first if indicated. 0402 (Given - Provider: Brian Goodrich RN) 0548 (Given - Provider: Regina Cabezas RN) Sodium-potassium phosphate (K-PHOS NEUTRAL) tablet 500-1,000 mg(Linked Group 8) 500-1,000 mg, Oral, ADMINISTER DIRECTED, Starting on [place] 11/16/23 at 1555, Until Mon11/28/23 at 1622, See admin instructions, Administer 2 tablets if phosphate level is 2.1-2.6mg/dL. Administer 4 tablets for phosphorous level less than or equal to 2.0 mg/dL. If patient does not have enteral access, please notify /MELVINA for intravenous replacements. Replacement is primarily indicated in critically ill patients., Post-op/Post-Proc Sodium-potassium phosphate (K-PHOS NEUTRAL) tablet 500-1,000 mg(Linked Group 8) 500-1,000 mg, Per NG tube, ADMINISTER DIRECTED, Starting on [place] 11/16/23 at 1555, Until Mon11/28/23 at 1622, See admin instructions, Administer 2 tablets if phosphate level is 2.1-2.6mg/dL. Administer 4 tablets for phosphorous level less than or equal to 2.0 mg/dL. If patient does not have enteral access, please notify MD/MELVINA for intravenous replacements. Replacement is primarily indicated in critically ill patients., Post-op/Post-Proc Linked Groups Order Group 1: Heparin injection 5,000 UnitsJump to med 5,000 Units, Subcutaneous, EVERY 8 HOURS (0800/1600/2200), First dose on Mon11/21/23 at 0800, Until Discontinued And PLATELET COUNT (CANCELED) Routine, EVERY 3 DAYS AM LAB, First occurrence on Mon11/21/23 at 0753, Until Specified, New collection Group 2: insulin glargine-yfgn (SEMGLEE) injection 30 UnitsJump to med 30 Units, Subcutaneous, EVERY 12 HOURS NON-STANDARD, First dose (after last modification) on Mon11/25/23 at 2200, Until Discontinued, Do not mix in syringe with other insulins. And NOTIFY PHYSICIAN, OTHER (CANCELED) Routine, CONTINUOUS, Starting on Mon11/25/23 at 1217, Until Specified, Who to Notify: Ticket Clerk, Call Ticket Clerk if a.m. Glucose is less than 80 and dose reduction not already ordered. Group 3: Insulin lispro (HUMALOG) injectionJump to med Subcutaneous, 4 TIMES DAILY WITH MEALS & AT BEDTIME, First dose (after last modification) on Mon11/25/23 at 0845, Until Discontinued, Insulin to carb ratio: Non-Standard: 1 unit insulin = 5 grams carbs every meal and at bedtime Correction Factor: 151-175 = 1 unit 176-200 = 2 units 201-225 = 3 units 226-250 = 4 units 251-275 = 5 units 276-300 = 6 units 301-325 = 7 units 326-350 = 8 units 351-375 = 9 units 376-400 = 10 units Kwikpen: Prime pen before each injection; refer to Pen Priming and Care Handout for further details. Warning! Confirm patient. Insulin pen is for labeled individual patient use ONLY. And Insulin lispro (HUMALOG) injectionJump to med Subcutaneous, NEEDED, Starting on 11/25/23 at 0843, Until Tu11/28/23 at 1622, Other, As needed for snacks, Insulin to carb ratio: Non Standard: 1 unit insulin = 5 grams carbs Correction Factor: not to be used with this order. Kwikpen: Prime pen before each injection; refer to Pen Priming and Care Handout for further details. Warning! Confirm patient. Insulin pen is for labeled individual patient use ONLY. And BLOOD GLUCOSE (POC DEVICE) (CANCELED) Routine, 4 TIMES DAILY BEFORE MEALS & AT BEDTIME, First occurrence on 11/25/23 at 1030, If any Blood Glucose (POC) is greater than 300mg/dl, then repeat Blood Glucose (POC) in 2 hours. If the initial blood glucose was greater than 300mg/dl and if second blood glucose is greater than 200md/dl, then notify Ticket Clerk. And BLOOD GLUCOSE (POC DEVICE) (CANCELED) Routine, DIRECTED, Starting on 11/25/23 at 0843, Until Specified, For all Blood Glucose LESS THAN 80 mg/dL, treat per Hypoglycemia in Non- Adults Clinical Practice Guideline (CPG) and recheck glucose 15 min after treatment. Repeat per CPG until glucose GREATER THAN 80 mg/dL. Once glucose IS GREATER THAN 80 mg/dL, recheck Blood Glucose every 1 hour x2, then resume as previously ordered. For Blood Glucose LESS THAN 80 mg/dL on admission OR LESS than 45 mg/dL at any time, obtain POC Blood Glucose every 4 hours for 6 occurrences AFTER treating per CPG. Obtain blood glucose for symptoms of hypoglycemia: sweating, shaking, fatigue, rapid pulse, slow thinking & dizziness. Notify physician w/results. Obtain blood glucose for symptoms of hyperglycemia: excessive thirst, blurred vision, excessive urination & tiredness. Notify physician w/results. If patient NPO, obtain POC Blood Glucose prior to administration of any insulin products. And COMMUNICATION ORDER FOR NURSING CARE: For Blood Glucose LESS THAN 80 mg/dl (CANCELED) Routine, CONTINUOUS, Starting on 11/25/23 at 0844, Until Specified, For Blood Glucose LESS THAN 80 mg/dl follow Hypoglycemia in Non- Adults Clinical Practice Guideline (CPG) And Dextrose 50% injection 7.5-25 gJump to med 7.5-25 g, Intravenous, ADMINISTER DIRECTED, Starting on 11/25/23 at 0843, Until Mon11/28/23 at 1622, Blood glucose <80 mg/dL, For patients who are not alert, are NPO, or are on IV insulin infusion administer as directed per Hypoglycemia in Non- Adults Clinical Practice Guideline. For Blood Glucose: 60-79 mg/dL administer 7.5 gm (15ml); 45-59 mg/dL administer 12.5 gm (25ml); less than 45mg/dL administer 25gm (50ml). ++ If additional dextrose 50% needed, contact pharmacy or obtain from crash cart ++ And glucose (GLUTOSE) 40 % oral gel 1-2 TubeJump to med 1-2 Tube, Oral, ADMINISTER DIRECTED, Starting on 11/25/23 at 0843, Until Mon11/28/23 at 1622, Blood glucose <80 mg/dL, For patients who are alert, able to tolerate PO intake and with intact cognitive status administer as directed per Hypoglycemia in Non- Adults Clinical Practice Guideline. For Blood Glucose: 60-79 mg/dL administer 1 tube; 45-59 mg/dl administer 1.5 tubes; less than 45 mg/dL administer 2 tubes. Each tube of 37.5g delivers 15g of carbohydrate. And NOTIFY PHYSICIAN, Blood Glucose LESS THAN 80 mg/dl (CANCELED) Routine, CONTINUOUS, Starting on 11/25/23 at 0844, Until Specified, Who to Notify: Ticket Clerk, For all Blood Glucose LESS THAN 80 mg/dl, notify Ticket Clerk after treatment per Hypoglycemia in Non- Adults Clinical Practice Guideline And Carbohydrate counts with meals (CANCELED) Routine, CONTINUOUS, Starting on 11/25/23 at 0844, Until Specified, Carbohydrate counts are to be done after each patient meal and with snack. Group 4: Acetaminophen (TYLENOL) tablet 650 mgJump to med 650 mg, Oral, EVERY 4 HOURS NEEDED, Starting on 11/20/23 at 0000, Until Mon11/28/23 at 1622, Mild Pain, Moderate Pain, Severe Pain, Oral temp > 100.4 F, For mild, moderate, or severe pain (DVPRS) or CPOT greater than 2. Ok to give with opioid if frequency allows., Post-op/Post-Proc Or Acetaminophen (TYLENOL) oral solution 650 mg (CANCELED) 650 mg, Per NG tube, EVERY 4 HOURS NEEDED, Starting on 11/20/23 at 0000, Until 11/19/23 at 0122, Mild Pain, Moderate Pain, Severe Pain, Oral temp > 100.4 F, For mild, moderate, or severe pain (DVPRS) or CPOT greater than 2. Ok to give with opioid if frequency allows., Post-op/Post-Proc Group 5: Calcium Gluconate 10 % injection 2 gJump to med 2 g, Intravenous, ADMINISTER DIRECTED, Starting on [place] 11/23/23 at 0356, Until Mon11/28/23 at 1622, See admin instructions, 1. If ionized Calcium 4.1-4.5, give 2.0 gm of Calcium Gluconate IV Push over 10 minutes 2. If Calcium less than or equal to 4.0, give 4 gm Calcium Gluconate/250 mL NS IVPB over 1 hour and recheck 1 hours after completion of infusion. Repeat labs in AM. Extravasation Risk Or Calcium Gluconate 4 g in Sodium chloride 0.9%, with overfill 150 mL (total volume) IVPBJump to med 4 g, Intravenous, Administer over 60 Minutes, ADMINISTER DIRECTED, Starting on [place] 11/23/23 at 0356, Until Mon11/28/23 at 1622, See admin instructions, 1. If ionized Calcium 4.1-4.5, give 2.0 gm of Calcium Gluconate IV Push over 10 minutes 2. If Calcium less than or equal to 4.0, give 4 gm Calcium Gluconate/250 mL NS IVPB over 1 hour and recheck 1 hours after completion of infusion. Repeat labs in AM. Extravasation Risk Group 6: Ondansetron (ZOFRAN) tablet 4 mgJump to med 4 mg, Oral, EVERY 6 HOURS NEEDED, Starting on [place] 11/16/23 at 1555, Until 11/28/23 at 1622, Nausea / Vomiting, 1st Line, Post-op/Post-Proc Or Ondansetron 4mg/2ml (ZOFRAN) injection 4 mgJump to med 4 mg, Intravenous, EVERY 6 HOURS NEEDED, Starting on [place] 11/16/23 at 1555, Until 11/28/23 at 1622, Nausea / Vomiting, 1st line, If patient unable to tolerate PO., Post-op/Post-Proc Group 7: oxyCODONE (ROXICODONE) tablet 5 mgJump to med 5 mg, Oral, EVERY 4 HOURS NEEDED, Starting on [place] 11/16/23 at 1555, Until 11/28/23 at 1622, Moderate Pain, Severe Pain, PRN for moderate pain or severe pain (DVPRS) or CPOT>2. Use first if PO/NG administration available., Post-op/Post-Proc Or oxyCODONE (ROXICODONE) tablet 5 mg (CANCELED) 5 mg, Per NG tube, EVERY 4 HOURS NEEDED, Starting on [place] 11/16/23 at 1555, Until 11/19/23 at 0122, Moderate Pain, Severe Pain, PRN for moderate pain or severe pain (DVPRS) or CPOT>2. Use first if PO/NG administration available., Post-op/Post-Proc Group 8: Sodium-potassium phosphate (K-PHOS NEUTRAL) tablet 500-1,000 mgJump to med 500-1,000 mg, Oral, ADMINISTER DIRECTED, Starting on [place] 11/16/23 at 1555, Until Mon11/28/23 at 1622, See admin instructions, Administer 2 tablets if phosphate level is 2.1-2.6mg/dL. Administer 4 tablets for phosphorous level less than or equal to 2.0 mg/dL. If patient does not have enteral access, please notify /MELVINA for intravenous replacements. Replacement is primarily indicated in critically ill patients., Post-op/Post-Proc Or Sodium-potassium phosphate (K-PHOS NEUTRAL) tablet 500-1,000 mgJump to med 500-1,000 mg, Per NG tube, ADMINISTER DIRECTED, Starting on [place] 11/16/23 at 1555, Until 11/28/23 at 1622, See admin instructions, Administer 2 tablets if phosphate level is 2.1-2.6mg/dL. Administer 4 tablets for phosphorous level less than or equal to 2.0 mg/dL. If patient does not have enteral access, please notify /MELVINA for intravenous replacements. Replacement is primarily indicated in critically ill patients., Post-op/Post-Proc FOR RECORDS PERTAINING TO PATIENTS WHO ARE [...] BE BASED ON THE PRIMARY CLINICAL RECORDS. [facility] provides no warranty or guarantee of the accuracy or completeness of information in this document.
--- NOTE | 2025-04-14 09:09 | STRESSREP ---
Stress Test Report Date: 04/14/2025 Procedure: Pharmacologic stress nuclear imaging study Indications: Coronary artery disease Consent: Per the patient Procedure: The patient underwent pharmacologic (Regadenoson 0.4mg ) evaluation with a peak heart rate of 94 beats per minute (61%predicted maximal heart rate) and a peak blood pressure of 152/100 mmHg. The baseline ECG demonstrated sinus rhythm with nonspecific T wave changes. The peak pharmacologic ECG failed to show any diagnostic ischemic changes. There were no cardiac dysrhythmias pretest, during pharmacologic infusion, or recovery. There was no complaint of chest discomfort during pharmacologic infusion or recovery. The patient was injected with 11.8 millicuries of technetium 99m Cardiolite and subsequently rest SPECT Cardiolite nuclear imaging was obtained in the horizontal long, vertical long, and short axis views. The patient underwent pharmacologic (Regadenoson) evaluation. The patient was injected with 34.7 millicuries of technetium 99m Cardiolite and subsequently stress SPECT Cardiolite nuclear imaging was obtained in the horizontal long, vertical long, and short axis views. A gated Cardiolite study at peak stress was obtained. The examination was stopped secondary to completion of protocol. Rest and stress SPECT Cardiolite nuclear imaging status post realignment, normalization, and attenuation correction demonstrate moderate to large size reversible perfusion defect of the lateral wall consistent with ischemia. There is end systolic thickening and brightening. The gated study reveals lateral hypokinesis. The reported LVEF is 41%. Impression: 1. Pharmacologic (Regadenoson) evaluation 2. Peak pharmacologic ECG with no diagnostic changes. 3. There were no cardiac dysrhythmias pretest, during pharmacologic infusion, or recovery. 5. Moderate to large size reversible perfusion defect of the lateral wall consistent with ischemia. 6. The gated Cardiolite study reports an LVEF of 41%. This note was generated with [employer] software. It may contain incorrect words, spelling, and punctuation that were not noted in checking the note before signing.
== END | disposition home or self-care (01) ==
LOC: CVS 05:59
PROVIDERS: PCP Family Medicine; Referring Provider Nurse Practitioner Gerontology; Visit Provider Nurse Practitioner Gerontology
DX: I50.20 Unspecified systolic (congestive) heart failure (principal); Z95.1 Presence of aortocoronary bypass graft
CPT/HCPCS: 78452; 93017; A9500; A4216; J2785

== ENCOUNTER → 2025-04-24 | Outpatient (CLI) | payer BC, MEDICARE, SELFPAY ==
[2025-04-24 17:39] LABS: Hematocrit 40.3 % (40-54); Hemoglobin 13.2 g/dL (13.0-16.5); Immature Granulocytes Count 0.010 X10^3/uL (0.0-0.0); Mean Corp Hgb Conc 32.8 g/dL (32-36); Mean Corpuscular Volume 89.2 fL (80-94); Mean Platelet Vol. 10.2 fl (6.2-12.0); NRBC Flagged by Analyzer 0 % (0-5); Platelet Count 242 K/mm3 (150-450); RBC Distribution Width CV 14.4 % (11.6-14.6); RBC Distribution Width SD 46.7 fl (35.1-43.9); Red Blood Count 4.52 M/mm3 (4.6-6.2); White Blood Count 5.8 K/mm3 (4.4-11.0)
[2025-04-24 18:07] LABS: Anion Gap 14 (5-15); BUN 20 mg/dL (4-19); BUN/Creat Ratio 15.8 RATIO (10-20); Calcium,Total 9.6 mg/dL (7.6-11.0); Carbon Dioxide 21.3 mmol/L (21.0-32.0); Chloride 105 mmol/L (98-108); Glucose 126 mg/dL (70-99); Potassium 4.2 mmol/L (3.3-5.1)
[2025-04-24 18:44] LABS: PSA,Total - Annual Screen 1.16 ng/mL (0.02-4.00)
== END | disposition home or self-care (01) ==
LOC: MFPLAB 14:52
PROVIDERS: Nurse Practitioner Gerontology; PCP Family Medicine; Visit Provider Family Medicine
DX: R94.39 Abnormal result of other cardiovascular function study (principal); Z12.5 Encounter for screening for malignant neoplasm of prostate; Z95.1 Presence of aortocoronary bypass graft
CPT/HCPCS: 80048; 84153; 85025; G0103

== ENCOUNTER 2025-04-30 09:18 | Day surgery (SDC) | payer BC, MEDICARE, SELFPAY ==
--- NOTE | 2025-04-28 11:10 | RAD_ITS ---
PROCEDURE: CHEST PA AND LATERAL 04/28/2025 REASON FOR EXAM: CARDIAC CATH TECHNIQUE: Procedure Code: RADCXR Modality: DX Procedure: Three-view CHEST PA AND LATERAL COMPARISON: AP chest of 10/13/2024. RAD/Chest PA and Lateral IMPRESSION: Prior sternotomy again noted. Prominent arterial calcification is again seen throughout. Prior coronary artery stenting seen. Prior comminuted fracture of the proximal left humerus, with at least partial i nterval healing noted. No pulmonary edema is now seen. No pleural effusion or pneumothorax is noted. The lungs appear clear of acute disease. The cardiomediastinal silhouette is not enlarged. Mild thoracic spine degenerative changes are seen, along with very extensive DI SH. [id number]
[2025-04-29 08:39] VITALS: BMI 19.7
--- NOTE | 2025-04-29 14:03 | HP.PCM_ITS ---
History and Physical Date of Admission: 04/30/25 Mr. Haji is a very pleasant 69-year-old gentleman who presents to the office today for a cardiovascular follow up visit. He has a history of hyperlipidemia, hypertension, coronary artery disease status post 5 vessel bypass surgery after markedly abnormal stress test on 05/29/2008 requiring had urgent transfer to [facility] where a left heart catheterization performed by Dr. Hidalgo demonstrated severe multivessel coronary disease including left main disease, LVEF at that time demonstrated 45% with severe inferobasal akinesis, and subsequent successful multivessel bypass surgery ?5 with a sequential ZUNIGA to the LAD/diagonal, a free KIMBERLYN to the PDA, and SVG to the ramus, and SVG to the obtuse marginal branch. He underwent catheterization which demonstrated a critical lesion in the saphenous vein graft to the circumflex, as well as in the augustine PDA and PL branch which can only be reached retrograde via the Free KIMBERLYN to the RCA. He underwent successful drug-eluting stent to the SVG to the LCX with a 2.25 mm Promus stent. There was consideration to proceed with retrograde approach via the free KIMBERLYN and were awaiting a special catheter to facilitate this, however the procedure was deemed too high risk by the [employer] director of creative strategy at [facility], so no additional angioplasty was performed. The patient returned soon after that with recurrent anginal symptoms and was emergently transported to [facility] where he underwent urgent left heart catheterization. At that time he was found to have a patent stent in his SVG, and no additional attempts were made to correct his augustine PDA lesions via the free KIMBERLYN. The patient successfully completed 15 sessions of ECP therapy and apparently his angina had completely resolved. The patient has undergone bilateral lower extremity balloon angioplasty by Dr. Biswas; one in June 2015 for the right side and then August 2015 on the left side. Since that time his claudication symptoms have improved. He was evaluated [facility] in October 2024. He is noted to have elevated troponin and an ejection fraction showed an LV function of 35-40%. Initially it was recommend to undergo a heart catheterization. On account of instability during hospital visit, it was then decide to undergo a stress test. Ultimately, he was discharged on medical therapy and recommended to discuss CAD evaluation on an outpatient basis. Patient presented to the emergency room on 12/03/2024 for abnormal labs. His potassium was elevated at 6.4. His potassium level was checked during ER visit, which was slightly elevated at 5.9. He was given Kayexalate, and discharged home to follow-up with his lab values on an outpatient basis. Patient underwent a pharmacologic nuclear stress test in April 2025. This demonstrated mild to moderate size reversible ischemia in the lateral wall. Because of this patient is scheduled to undergo a diagnostic heart catheterization. Medical History Uremia Nausea & vomiting MADELEINE (acute kidney injury) Pancreatitis Ileostomy present Colostomy in place Orthostatic hypotension Essential hypertension Loss of hearing Wears glasses Cancer Depression Insulin dependent diabetes mellitus Walker as ambulation aid Arthritis High cholesterol Restless legs Injury of back Injury of head and neck Syncope Dietary restriction Gastric reflux Non-smoker CPAP (continuous positive airway pressure) dependence Shortness of breath on exertion Leg cramps History of pain when walking History of echocardiogram History of stress test Cardiology follow-up encounter History of heart attack Colorectal cancer Dysphagia invasive rectal adenocarcinoma Diabetic neuropathy Restrictive lung disease Type 2 diabetes mellitus Anxiety disorder GERD (gastroesophageal reflux disease) Carotid artery disease Obstructive sleep apnea 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 Peripheral vascular occlusive disease CVA (cerebral vascular accident) ALEJADNRO (obstructive sleep apnea) Dyslipidemia HTN (hypertension) Surgical History History of bilateral cataract extraction History of left heart catheterization (LHC) (~01/22/15) History of right and left heart catheterization (LHC) (~12/25/14) History of eye surgery PTCA Left Anterior Tibial and Paroneal Artery History of coronary artery stent placement (01/02/15) H/O coronary artery bypass surgery (05/30/08) History of right-sided carotid endarterectomy Excision Max.Zygoma Face Tumor History of tonsillectomy History of herniorrhaphy Family History Father CAD (coronary artery disease) Hypertension Cancer leukemia Diabetes Heart disease High cholesterol Mother CVA (cerebral vascular accident) Diabetes Breast cancer Brother Diabetes Social History household members: spouse Smoking Status: Never smoker alcohol intake: never substance use type: does not use caffeine: Yes what type of physical activity do you participate in: none ROS Const Const: Negative for fatigue, weakness, headache(s) or frequent falls Eyes Eyes: Negative for blurry vision ENT ENT: Negative for headache(s), dizziness or Nosebleed/epistaxis Cardio Chest Pain: No Palpitations: No Edema: None Muscle aches with walking: None Resp Respiratory: Negative for SOB with activity, SOB at rest or SOB orthopnea\SOB lying down GI GI: Negative nausea, vomiting, heartburn, bright, red blood in stools or black,tarry stools : Negative for hematuria Neuro Neuro: Positive for lightheadedness; Negative for dizziness, near syncope, syncope, frequent falls, headache(s), weakness or blurry vision Endo Endo: Negative for fatigue Cardiology Exam Const Appearance: cooperative, comfortable and no acute distress Nutritional Appearance: average body habitus and well nourished Orientation: alert and oriented x3 Head Head: normal to inspection Ears: hearing grossly normal bilaterally Nose: external nose normal Face and Sinus: face symmetric Eyes General: appearance normal, both eyes and all related structures Eyelids: eyelids normal Conjunctivae: conjunctivae normal Pupils: PERRL and pupil size EOM: EOM intact bilaterally Neck Neck: no JVD Carotids: Negative bruit Chest Chest inspection: normal inspection of the chest and normal respiratory effort Auscultation: Bilateral: Clear to Auscultation Cardio Palpation: normal PMI Rate: regular rate Rhythm: regular rhythm Heart sounds: S1 normal and S2 normal GI GI: normal to inspection, soft and other (has a mackenzie catheter) Neuro General: patient alert, patient awake and patient oriented x3 Skin Skin: no rashes or lesions noted Extremities Pulses: Normal: Right Posterior Tibial Pulse, Left Posterior Tibial Pulse, Right Radial Pulse and Left Radial Pulse Lower Extremity Edema: None: Bilateral Psych Psychological: normal affect Assessment & Plan Assessment/Plan (1) Abnormal stress test: (2) H/O coronary artery bypass surgery: (3) HTN (hypertension): QUALIFIERS: Hypertension type: essential hypertension Qualified Code(s): I10 - Essential (primary) hypertension (4) History of coronary artery stent placement: (5) Dyslipidemia: PLAN: Plan Patient will follow-up after diagnostic heart catheterization.
[2025-04-30 13:44] LABS: ACT Activated Clotting Time 187 sec (74-137)
--- NOTE | 2025-04-30 14:47 | CL.D_ITS ---
Patient Name: MITCH VEGA Study Date: 04/30/2025 Performing: Prateek Smith MD Ht: 67 inches 170.18 cm : 1955 Wt: 125.99 lbs 57.15 kg Age: 69 Gender: male BSA: 1.66 PROCEDURE(S) PERFORMED DC03-([id number])LHC/COR/LV/CABG Bilateral Iliac Angiography Aortic Root Injection CLINICAL PROFILE AND INDICATIONS Indications: Stable Known CAD Heart Failure: NYHA Class: 2, Newly Diagnosed: No, Heart Failure Type: Systolic Stress/Imaging Stress Test w/SPECT MPI: Yes Result: Positive High RiskStress Test with SPECT MPI: Positive High Risk Angina Classification Anginal Classification w/in 2 Weeks: Anginal Equivalent Dyspnea CONCLUSIONS 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 ZUNIGA angiography through left radial, rest of the procedure through left femoral approach Bilateral Iliac Arteries patent; 90% heavily calcified Right Common femoral, Calcified 30% Left Common Femoral RECOMMENDATIONS Medical therapy DESCRIPTION OF PROCEDURE The patient arrived to the procedure lab. The risks and benefits of the procedure as well as a full description of our services here and current unavailability of surgical backup were fully explained to the patient and/or their significant other prior to the catheterization. The Timeout was completed, verifying the correct patient and procedure. The patient's procedural site was prepped and draped in the usual fashion. Local anesthetic was given subcutaneously to left radial region with Lidocaine 2%. Local anesthetic was given subcutaneously to right groin region with Lidocaine 2%. Local anesthetic was given subcutaneously to left groin region with Lidocaine 2%. Using a modified Seldinger technique, arterial access was obtained via the left radial artery, a 6Fr sheath was inserted., arterial access was obtained via the right femoral artery, a 6Fr sheath was inserted., arterial access was obtained via the left femoral artery, a 6Fr sheath was inserted. Left internal mammary artery graft to the LAD selective angiography was performed in multiple views using a 5 Fr. IM catheter. Right Coronary Artery selective angiography was then performed in multiple views using a 5 Fr. 3DRC (Armaan) catheter. Saphenous Vein graft to the Circumflex selective angiography was performed in multiple views using a 5 Fr. 3DRC (Armaan) catheter. Saphenous Vein graft to the RPDA selective angiography was performed in multiple views using a 5 Fr. 3DRC (Armaan) catheter. Saphenous Vein graft to the RPDA selective angiography was performed in multiple views using a 5 Fr. JR 4 catheter.Contrast was injected through the sheath and the Right Iliac and Femoral artery were assessed for possible closure device.The left arm arterial sheath was pulled and a TR Band was applied for hemostasis CORONARY ANGIOGRAPHY DOMINANCE: Right Dominant LEFT MAIN: Tubular 100% Ostial lesion in LMCA RIGHT CORONARY ARTERY: RCA: Tubular 100% Proximal lesion in RCA RT PDA: Tubular 80% Ostial lesion in RT PDA GRAFTS: ZUNIGA Graft to DIAG1 SVG Graft to DIAG2 Tubular 100% lesion in SVG Graft to DIAG2 SVG Graft to RT PDA COMPLICATIONS No Complications PROCEDURE MEDICATIONS Versed 1 mg IV Fentanyl 50 mcg IV Oxygen: 2 L/min via nasal cannula Baby Aspirin (81mg) 1 Tabs PO @ 04/30/2025 09:39:11 Heparin given IA 04/30/2025 12:06:44 Heparin 3000 unit(s) IV 04/30/2025 12:15:09 Verapamil 2.5mg, Ntg 200mcgs, 2000 units of Heparin given IA 04/30/2025 12:06:44 SUMMARY OF HEMODYNAMIC DATA Time AIR REST AO 115/52 (75) SA 12:11:41 Signed By Prateek Smith MD On 04/30/2025 14:48:00 Signed By Prateek Smith MD On 04/30/2025 14:46:44 Prateek Smith MD
== END 2025-04-30 16:10 | disposition home or self-care (01) ==
PROVIDERS: PCP Family Medicine; Referring Provider Internal Medicine Cardiovascular Disease; Visit Provider Internal Medicine Cardiovascular Disease
DX: I77.1 Stricture of artery (principal); I11.0 Hypertensive heart disease with heart failure; I50.22 Chronic systolic (congestive) heart failure; E11.40 Type 2 diabetes mellitus with diabetic neuropathy, unspecified; R94.39 Abnormal result of other cardiovascular function study; Z95.1 Presence of aortocoronary bypass graft; E78.00 Pure hypercholesterolemia, unspecified; K21.9 Gastro-esophageal reflux disease without esophagitis; I25.10 Atherosclerotic heart disease of native coronary artery without angina pectoris; Z95.5 Presence of coronary angioplasty implant and graft
CPT/HCPCS: 71046; 85347; 93459; 99152; 99153; C1769; C1894; Q9967; C1760; C1887

== ENCOUNTER → 2025-06-20 | Outpatient (CLI) | payer BC, MEDICARE, SELFPAY ==
[2025-06-20 12:24] LABS: Mucous, Urine 0 SEEN /hpf (<or=2+); Squamous Epithelial Cells - UA 0 SEEN /hpf (0-5)
[2025-06-20 12:44] LABS: Color, Urine Yellow (Yellow); Glucose, Dipstick Normal (Normal); Ketone-Dipstick 5 mg/dl (Negative); Leukocyte Esterase-Dipstick 500 /ul (Negative); Nitrite-Dipstick Positive (Negative); Occult Blood-Urine 250 /ul (Negative); Protein-Dipstick 100 mg/dl (Negative); Specific Gravity, Urine 1.020 (1.002-1.030); Urine Bilirubin Dipstick Negative (Negative)
[2025-06-20 12:55] LABS: Red Blood Cells-Urine 5-10 SEEN /hpf (0-5); Yeast-Urine 1+ /hpf (None Seen)
== END | disposition home or self-care (01) ==
LOC: LABSPEC 11:49
PROVIDERS: PCP Family Medicine; Referring Provider Family Medicine; Visit Provider Family Medicine
DX: T83.511D Infection and inflammatory reaction due to indwelling urethral catheter, subsequent encounter (principal)
CPT/HCPCS: 81001; 87077; 87086; 87088; 87186

== ENCOUNTER → 2025-06-24 | Outpatient (CLI) | payer BC, MEDICARE, SELFPAY ==
[2025-06-24 17:32] LABS: Mucous, Urine 0 SEEN /hpf (<or=2+); Squamous Epithelial Cells - UA 0 SEEN /hpf (0-5)
[2025-06-24 18:10] LABS: Color, Urine Yellow (Yellow); Glucose, Dipstick 100 mg/dl (Normal); Ketone-Dipstick Negative (Negative); Leukocyte Esterase-Dipstick 100 /ul (Negative); Nitrite-Dipstick Negative (Negative); Occult Blood-Urine 250 /ul (Negative); Protein-Dipstick 100 mg/dl (Negative); Specific Gravity, Urine 1.015 (1.002-1.030); Urine Bilirubin Dipstick Negative (Negative)
[2025-06-24 18:44] LABS: Red Blood Cells-Urine 10-25 SEEN /hpf (0-5)
[2025-06-24 18:45] LABS: Calcium Oxalate Crystals Ur RARE /hpf (<or=2+); Yeast-Urine 3+ /hpf (None Seen)
== END | disposition home or self-care (01) ==
LOC: LABSPEC 17:22
PROVIDERS: PCP Family Medicine; Referring Provider Family Medicine; Visit Provider Family Medicine
DX: R30.0 Dysuria (principal); T83.511D Infection and inflammatory reaction due to indwelling urethral catheter, subsequent encounter
CPT/HCPCS: 81001; 87077; 87086; 87088; 87186

== ENCOUNTER → 2025-07-17 | Outpatient (CLI) | payer BC, MEDICARE, SELFPAY ==
[2025-07-17 16:11] LABS: Mucous, Urine 0 SEEN /hpf (<or=2+); Squamous Epithelial Cells - UA 0 SEEN /hpf (0-5)
[2025-07-17 21:49] LABS: Color, Urine Yellow (Yellow); Glucose, Dipstick Normal (Normal); Ketone-Dipstick Negative (Negative); Leukocyte Esterase-Dipstick 500 /ul (Negative); Nitrite-Dipstick Negative (Negative); Occult Blood-Urine 250 /ul (Negative); Protein-Dipstick 100 mg/dl (Negative); Specific Gravity, Urine 1.025 (1.002-1.030); Urine Bilirubin Dipstick Negative (Negative)
[2025-07-17 23:03] LABS: Calcium Oxalate Crystals Ur 1+ /hpf (<or=2+); Red Blood Cells-Urine 25-50 SEEN /hpf (0-5); Yeast-Urine 1+ /hpf (None Seen)
== END | disposition home or self-care (01) ==
LOC: LABSPEC 15:50
PROVIDERS: PCP Family Medicine; Referring Provider Family Medicine; Visit Provider Family Medicine
DX: R30.0 Dysuria (principal); N32.89 Other specified disorders of bladder; R82.90 Unspecified abnormal findings in urine
CPT/HCPCS: 81001; 87077; 87086; 87088; 87186

== ENCOUNTER → 2025-07-30 | Outpatient (CLI) | payer BC, MEDICARE, SELFPAY ==
[2025-07-30 17:20] LABS: Mucous, Urine 0 SEEN /hpf (<or=2+); Squamous Epithelial Cells - UA 0 SEEN /hpf (0-5)
[2025-07-30 17:24] LABS: Color, Urine Yellow (Yellow); Glucose, Dipstick 50 mg/dl (Normal); Ketone-Dipstick Negative (Negative); Leukocyte Esterase-Dipstick 500 /ul (Negative); Nitrite-Dipstick Negative (Negative); Occult Blood-Urine 250 /ul (Negative); Protein-Dipstick 100 mg/dl (Negative); Specific Gravity, Urine 1.025 (1.002-1.030); Urine Bilirubin Dipstick Negative (Negative)
--- OUTSIDE RECORDS SUMMARY | 2025-07-30 17:24 | XMS RPT_ITS | CCD ---
Author Organization [facility] Care Team Providers Care Taping Machine Operator Name Role Phone KENZIE BARDALES [...] Dr. Tay Robertson Other Provider Unavailable Daryl PULLBOAT ENGINEER, PULLBOAT ENGINEER-C Tereza Attending Provider Daryl PULLBOAT ENGINEER, PULLBOAT ENGINEER-C Tereza Other Provider Kendy Modi Primary Care Provider Logan MONTE MD, Daesung Unavailable Doup RN, Jo Unavailable Unavailable Kendy Modi Primary Care Provider Logan MONTE MD, Daesung Unavailable Doup RN, Jo Unavailable Unavailable Kendy Modi Primary Care Provider Kendy oMdi Primary Care Provider Dr. Kendy Modi Primary Care Provider Dr. Kendy Modi Referring Provider Dr. Dwayne Gee Attending Provider Dr. Kendy Modi Primary Care Provider Dr. Kendy Modi Referring Provider Roof PULLBOAT ENGINEER, PULLBOAT ENGINEER-C Vishal Samayoa Attending Provider Dr. Citlali Zurita [...] Provider Dr. Prateek Smith Attending Provider Kendy Modi MD Primary Care Provider [...] Crump DO Emergency Provider Kwabena MONTE, Dr. Kendra oJhnson Attending Provider Kwabena MONTE, Dr. Kendra Johnson Admit Provider Kwabena MONTE, Dr. Kendra Johnson Other Provider Luis MONTE, Dr. Chandra Other Provider Hope MONTE, Dr. Benoit Other Provider Luis MONTE, Dr. Rivera Attending Provider Dr. Matt Penny MD Other Provider Luis MONTE, Dr. Chandra Attending Provider Luis MONTE, Dr. Chandra Referring Provider Ascencion MONTE, Dr. Browne Other Provider Sigrid MONTE, Dr. Khun Other Provider Roman MONTE, Dr. Mesa Other Provider Kushal CARLTON, Dr. Kirk Attending Provider Kushal CARLTON, Dr. Kirk Other Provider Edie MONTE, Dr. Tay Castillo Other Provider [phone] Cari MONTE, Dr. Cast Other Provider [phone] Katelin MONTE, Dr. Rodriguez Other Provider [phone] Martir MONTE, Dr. Maharaj Other Provider Samantha MONTE, Dr. Luna Other Provider [phone] Eber MONTE, Dr. Yip Other Provider [phone] Otilio MONTE, Dr. Hawkins Other Provider [phone] Elliott MONTE, Dr. York Other Provider [phone] Amor MONTE, Dr. Matthews Other Provider Unavailabl ky Hall MD, Dr. Carter Other Provider [phone] Nii MONTE, Dr. Rankin Other Provider Luna MONTE, Dr. Walker Other Provider Mayte MONTE, Dr. Sanchez Other Provider Dr. Jeffery Renteria DO Other Provider [phone] Leisa MONTE, Dr. Lubin Other Provider [phone] Ember MONTE, Dr. Knott Other Provider [phone] Yousif Snell DO Other Provider Kvng MONTE, Dr. Mccarty Other Provider Art MONTE, Dr. Pearson Other Provider [phone] Zohaib MONTE, Dr. Gutierrez Attending Provider Luis MONTE, Dr. Rivera Other Provider Adelso MONTE, Dr. Clifton Attending Provider Kendy Modi MD Attending Provider Unavailable Ly MONTE, Dr. Kendy Chappell Referring Provider [facility] PULLBOAT ENGINEER-CVishal Attending Provider Ly MONTE, Dr. Kendy Chappell Attending Provider Claus [...] Jovan MONTE, Dr. Rice Referring Provider Daryl LANGLEY-CTereza Attending Provider Filiberto MONTE, Dre Primary Care Provider Ly MONTE, Dr. Kendy Chappell Primary Care Provider Daryl LANGLEY-CTereza Referring Provider Jovan MONTE, Dr. Rice Referring Provider Tereza Akins Attending Physician Dre De Los Santos MD Primary Care Physician Tereza Akins Nurse Practitioner Luis MONTE, Dr. Chandra Attending Physician Cy Arnett Consulting Unavailable Claudio Devlin Admitting Unavailable Jfiff, Kendy S Primary Care Unavailable Miguel Angel Montez Attending Unavailable Claudio Devlin Consulting Unavailable Chris Collins Consulting Unavailable Catherine Barton Attending Unavailable Logan, Ling Admitting Unavailable Jolliff, Kendy S Primary Care Unavailable Ling Ford Consulting Unavailable Armando Ritchie Consulting Unavailable Kendra Yuan Consulting Unavailable Kendra Yuan Admitting Unavailable Matt Penny Attending Unavailable Jfiff, Kendy S Primary Care Unavailable Prateek Smith Consulting Unavailable Chris Collins Consulting Unavailable Hope, Jayaprakas Consulting Unavailable Chau, Issa Consulting Unavailable Zohaib, Matt Consulting Unavailable Kendra Yuan Admitting Unavailable Kendra Yuan Consulting Unavailable Nicole Smith Attending Unavailable Jolliff, Kendy S Primary Care Unavailable Luis, Prateek Consulting Unavailable Dennis, Chris Consulting Unavailable Hope, Jayaprakas Consulting Unavailable Chau, Issa Consulting Unavailable Zohaib, Matt Consulting Unavailable Luis, Prateek Attending Unavailable Daryl PULLBOAT ENGINEER, Tereza Consulting Unavailable Daryl PULLBOAT ENGINEER, Tereza Referring Unavailable Filiberto, Chalon Primary Care Unavailable Luis, Prateek Referring Unavailable Daryl PULLBOAT ENGINEER, Tereza Consulting Unavailable Filiberto, Chalon Primary Care Unavailable Amy Dudley Attending Unavail able Luis, Prateek Consulting Unavailable Ling Ford Admitting Unavailable Ling Ford Consulting Unavailable LoganLing Attending Unavailable Jolliff, Kendy S Primary Care Unavailable Nicole Smith Attending Unavailable Nicole Smith Consulting Unavailable Chris Collins Consulting Unavailable Catherine Barton Attending Unavailable Chau, Issa Consulting Unavailable Koram, Catherine Elba Consulting Unavailable Jolliff, Kendy S Attending Unavailable Jolliff, Kendy S Referring Unavailable Jolliff, Kendy S Primary Care Unavailable Aldana, Dwayne Primary Care Unavailable Ross Crump Attending Unavailable Roof PULLBOAT ENGINEER, Vishal H Referring Unavailable Aldana, Dwayne Primary Care Unavailable Roof PULLBOAT ENGINEER, Vishal H Attending Unavailable Roof PULLBOAT ENGINEER, Vishal H Attending Unavailable Roof PULLBOAT ENGINEER, Vishal H Referring Unavailable Jolliff, Kendy S Primary Care Unavailable Hope, Jayaprakas Attending Unavailable Jolliff, Kendy S Primary Care Unavailable Jolliff, Kendy S Attending Unavailable Jolliff, Kendy S Primary Care Unavailable Jolliff, Kendy S Primary Care Unavailable Jolliff TRACY, Kendy S Attending Unavailable Etienne Darden Attending Unavailable Claudio Devlin Admitting Unavailable Jolliff, Kendy S Primary Care Unavailable Miguel Angel Montez Attending Unavailable Hope, Jayaprakas Consulting Unavailable Claudio Devlin Consulting Unavailable Miguel Angel Montez Consulting Unavailable Luis, Prateek Attending Unavailable Kendra Yuan Attending Unavailable Jolliff, Kendy S Primary Care Unavailable Reagan Fatima Attending Unavailable Luis, Prateek Referring Unavailable Pavan Vegas Consulting Unavailable Bam Matta Consulting Unavailable Moshe Owens Consulting Unavailable Reagan Fatima Consulting Unavailable Tay Irizarry Consulting Unavailable Segun Alcala Consulting Unavailable Katelin, Michael Consulting Unavailable Habtegebriel, Carol Ann Consulting Unavailab le Dand, Jeremy Consulting Unavailable Velázquez, Phi Consulting Unavailable Yañez, Ross Consulting Unavailable Elliott, Chela Consulting Unavailable Aljundi, Lamia Consulting Unavailable Hall, Emma Consulting Unavailable Nii, Chucho Consulting Unavailable Irukulla, Aaron Consulting Unavailable Mayte, Daniel Consulting Unavailable Dhesi, Jeffery Consulting Unavailable De La Fuente, Sujoy Consulting Unavailable Bristol, Soleyah Consulting Unavailable Fernsaleyda, Yousif Consulting Unavailable Kvng, Lul Consulting Unavailable Art, Michel Consulting Unavailable Claudio Devlin Attending Unavailable Carlos LANGLEY, Vishal Samayoa Attending Unavailable Jolliff, Kendy S Referring Unavailable Jolliff, Kendy S Primary Care Unavailable Daryl LANGLEY, Tereza Attending Unavailable Aldana, Dwayne Referring Unavailable Aldana, Dwayne Primary Care Unavailable Daryl LANGLEY, Tereza Attending Unavailable Aldana, Dwayne Referring Unavailable Filiberto, Chalon Primary Care Unavailable Luis, Prateek Attending Unavailable Jolliff, Kendy S Referring Unavailable Jolliff, Kendy S Primary Care Unavailable Pk Shin Attending Unavailable Jolliff, Kendy S Primary Care Unavailable Luis, Prateek Attending Unavailable Jolliff, Kendy S Primary Care Unavailable Daryl LANGLEY, Tereza Attending Unavailable Filiberto, Chalon Primary Care Unavailable Luis, Prateek Attending Unavailable [...] Prateek Referring Unavailable Luis, Prateek Attending Unavailable Tereza Brito NP Consulting Unavailable Filiberto, Chalon Primary Care Unavailable FilibertorDe Attending Unavailable Filiberto, Chalon Primary Care Unavailable Luis, Prateek Referring Unavailable Luis, Prateek Attending Unavailable Jolliff, Kendy S Primary Care Unavailable Daryl PULLBOAT ENGINEER, Tereza Attending Unavailable Daryl PULLBOAT ENGINEER, Tereza Referring Unavailable Filiberto, Chalon Primary Care Unavailable Daryl LANGLEY, Tereza Attending Unavailable Filiberto, Chalon Primary Care Unavailable Daryl LANGLEY, Tereza Referring Unavailable Filiberto MONTE, Dre Attending Physician [phone] Luis MONTE, Dr. Chandra Referring Provider Dr. Prateek Smith MD Nurse Practitioner Amy Dudley Attending Physician [phone] Medications Current Medications Medication Drug Class(es) Dates [...] needed for pain May 21, 2024 1:47pm Complies with drug therapy Start: 11-19-2023 End: 11-28-2023 take 650 mg by mouth every four hours as needed aspirin 81 mg chewable tablet (20 sources) Platelet Aggregation Inhibitor, Nonsteroidal Anti-inflammatory Drug Start: 03-20-2016 End: 11-28-2023 take 1 tablet by mouth once daily Aspirin 81 MG tablet,chewable Active 81 mg PO DAILY March 20, 2016 12:00am [employer] Complies with drug therapy End: 12-29-2023 take 1 tablet by mouth once daily Aspirin 81 mg Tab Take 81 mg by mouth once daily. 0 12/29/2023 Discontinued Comment on above: Take 81 mg by mouth once daily. atorvastatin 20 mg oral tablet (20 sources) HMG-CoA Reductase Inhibitor Start: take 1 tablet by mouth once daily Atorvastatin (Lipitor) 20 mg tablet Active 20 mg PO daily March 17, 2025 12:00am Complies with drug therapy Start: 05-21-2024 End: 12-09-2024 take 1 tablet [...] 0 February 09, 2024 12:00am blood pressure Complies with drug therapy Start: 01-31-2024 End: 02-09-2024 take 1 tablet [...] mg PO daily October 30, 2024 12:00am Complies with drug therapy Start: 03-12-2023 End: 10-30-2024 Duloxetine 60 MG capsule,del ayed release(DR/EC) Discontinued 30 mg PO DAILY 30 1 March 12, 2023 11:39am October 30, 2024 [...] DAILY August 25, 2024 1:00am nerve pain Complies with drug therapy Start: 12-17-2020 End: 07-02-2024 take 1 capsule [...] 17, 2020 1:37pm take 1 capsule by mo [facility] three times daily gabapentin (NEURONTIN) 300 mg capsule Take 300 mg by mouth three times a day. Active Comment on above: TAKE 1 CAPSULE DAILY Take 1 capsule by mo [facility] once daily. Take 1 capsule by mo [facility] once daily for 14 days. glucose 0.45 [...] controlled Start: 12-02-2023 End: 05-21-2024 Insulin Glargine-Yfgn (9 sources) Start: 03-17-2025 Insulin Glargi ne-Yfgn (Semglee(Insulin Glarg-Yfgn)Pen) 100 unit/mL (3 mL) insulin pen Active 50 U SC TWICE A DAY March 17, 2025 12:00am Complies with drug therapy Start: 03-17-2025 Start: 11-28-2024 Insulin Glargi ne-Yfgn 100 unit/mL (3 mL) Insulin Pen Active 15 U SC TWICE A DAY 0 0 November 28, 2024 12:00am Complies with drug therapy Start: 11-28-2024 Start: 05-21-2024 End: 11-28-2024 Insulin Glargine-Yfgn (Semgl ee(Insulin Glarg-Yfgn)Pen) 100 unit/mL (3 mL) insulin pen Discontinued 45 U SC TWICE A DAY May 21, 2024 12:00am November 28, 2024 12:53pm diabetes Insulin Glargine-Yfgn (Semglee(Insulin Glarg-Yfgn)Pen) 100 unit/mL (3 [...] Units subcutaneously with meals. 12/29/2023 Active Start: 06-11-2019 End: 12-29-2023 insulin lispro (HUMALOG KWIK PEN INSULIN) 100 unit/mL inpn 17 units before each meals Plus sliding Scale (~20 units per meal) 18 mL 6 06/11/2019 12/29/2023 Discontinued Start: 04-02-2018 End: 11-28-2024 inject 4 [IU] by subcutaneous injection three times daily Insulin Lispro (Humalog Kwikpen Insulin) 100 unit/mL insulin pen Discontinued 1 sliding scale dose SC 3 TIMES DAILY WITH MEALS Protocol: INJECT 4 UNITS SUBCUTANEOUSLY ALONG WITH SLIDING SCALE THREE TIMES A DAY AT 0730, 1130, AND 1630 Condition: mg/dl range Dose/Route: Number of Units Condition: 0-200 Dose/Route: 0 Condition: 201-250 Dose/Route: 2 Condition: 251-300 Dose/Route: 4 Condition: 301-350 Dose/Route: 6 Condition: 351-400 Dose/Route: 8 Condition: 401-450 Dose/Route: 10 Condition: 451-500 Dose/Route: 12 Condition: 500+ Dose/Route: 14 Condition: 501+ Dose/Route: CALL September 26, 2021 7:44pm November 28, 2024 12:54pm diabetes Please contact the information source for Protocol details. Start: 04-02-2018 End: 09-26-2021 Insulin Lispro (Humalog Kwik pen Insulin) 100 unit/mL insulin pen Discontinued 0 SC .COMPLEX 60 3 April 02, 2018 12:00am September 26, 2021 7:44pm Type 2 diabetes mellitus with other diabetic neurological complication Take 17 units each meal plus sliding scale up to 65 units daily End: 11-28-2023 Insulin Lispro 1 00 UNIT/ML vial Inject under the skin 3 times daily (take before meals). 0 Active Comment on above: 17 units before each meals Plus sliding Scale (~20 units per meal) 24 hr isosorbide mononitrate 30 mg extended release oral tablet (20 sources) Nitrate Vasodilator Start: 5 End: 5 take 1 tablet by mouth once daily, then take 1 tablet by mouth every twenty-four hours Isosorbide Mononitrate 30 mg tablet extended release 24 hr Active 30 mg PO DAILY October 30, 2024 2:57pm Complies with drug therapy isosorbide dinitrate 30 mg oral tablet (1 [...] AT BEDTIME January 31, 2024 12:00am sleep Complies with drug therapy Start: 01-31-2024 Start: 12-29-2023 take 2 tablets by mouth once m elatonin 3 mg tablet Take 2 tablets by mouth one time only for 1 dose. 2 tablet 12/29/2023 Active Multivitamin (Daily Multi-Vitamin) tablet (14 sources) Start: 06-22-2021 take 1 tablet by [...] PO DAILY December 01, 2023 12:00am GERD Complies with drug therapy Start: 11-12-2023 End: 11-28-2023 rosuvastatin calcium 40 [...] NON-STANDARD, First dose (after last modification) on 11/25/23 at 2200, Until Discontinued, Do not mix in syringe with other insulins. [Order 1 End] [Order 2 Start] Name: NOTIFY PHYSICIAN, OTHER Signed Summary: Routine, CONTINUOUS, Starting on 11/25/23 at 1217, Until Specified, Who to Notify: [facility], Call [facility] if a.m. Glucose is less than 80 [...] glucose is greater than 200md/dl, then notify [facility]. [Order 3 End] [Order 4 Start] Name: [...] 50% needed, contact pharmacy or obtain from [facility] ++ [Order 6 End] [Order 7 Start] [...] at 0844, Until Specified, Who to Notify: [facility], For all Blood Glucose LESS THAN 80 mg/dl, notify [facility] after treatment per Hypoglycemia in Non- Adults [...] / oxyCODONE hydrochloride 5 mg oral tablet (20 sources) Opioid Agonist Start: 01-29-2021 End: 06-22-2021 [...] mg tablet Discontinued 5 mg PO DAILY December 28, 2022 2:44pm March 12, 2023 11:06am blood pressure Comment on above: Take 5 mg by mouth o nce daily. amoxicillin 500 mg oral capsule (11 sources) Penicillin-class Antibacterial Start: 08-25-19 End: 08-27-19 take 1 capsule by mouth three times daily Amoxicillin 500 mg capsule Discontinued 500 mg PO THREE TIMES A DAY August 25, 2024 1:00am August 27, 2024 11:27am amoxicillin 875 mg / clavulanate 125 mg oral tablet (11 sources) Penicillin-class Antibacterial Start: 08-27-19 End: 10-11-19 Amoxicillin-Pot Clavulanate 875-125 mg tablet Discontinued 1 {tbl} PO TWICE A DAY 6 0 August 27, 2024 1:00am October 10, 2024 2:40am Start: 08-27-2024 End: 10-10-2024 apixaban 5 mg oral tablet (14 sources) Factor Xa Inhibitor Start: 12-01-2023 End: 03-17-2024 take 1 tablet by mouth twice daily Apixaban (Eliquis) 5 mg tablet Discontinued 5 mg PO TWICE A DAY December 01, 2023 12:00am January 31, 2024 6:06pm PCI Start: 11-17-2023 End: 11-28-2023 ascorbic acid 500 mg oral capsule (19 sources) Vitamin C Start: 12-02-2023 End: 01-31-2024 [...] 07-19-2023 calcium carbonate 750 mg chewable tablet (11 sources) Start: 01-31-2024 End: 12-09-2024 take 1 [...] End: 11-22-2023 castor oil 0.788 mg/mg / [place]ican balsam 0.087 mg/mg topical ointment (1 source) Standardized Chemical Allergen Start: 11-16-2023 End: 11-28-2023 Cbd Oil (14 sources) Start: 05-02-2019 End: 10-07-2019 take 1 [...] eight hours cefdinir 300 mg oral capsule (20 sources) Cephalosporin Antibacterial Start: 09-29-2021 End: 10-15-2021 [...] 07/19/2023 Active cholecalciferol 0.025 mg oral tablet (20 sources) Vitamin D Start: 03-20-2016 End: 08-17-2017 [...] once daily. clotrimazole 10 mg/ml topical cream (11 sources) Azole Antifungal Start: 01-31-2024 End: 08-25-2024 [...] End: 11-13-2023 ergocalciferol 1.25 mg oral capsule (14 sources) Provitamin D2 Compound Start: 12-01-2023 End: 01-31-2024 Ergocalciferol (Vitamin D2) 1,250 mcg (50,000 unit) capsule Discontinued 1250 ug PO DAILY December 01, 2023 12:00am January 31, 2024 6:06pm general health take 1 capsule by mouth every we ek Ergocalciferol 1.25 MG (17575 UT) capsule Take 1 capsule by mouth [...] 8:55am Flavoring Agent (Bulk) 3.7 ML oil (5 sources) Start: 03-20-2016 End: 08-17-2017 Flavoring Agent [...] (FLONASE) 50 mcg/actuation nasal spray Use 1 Basco in each nostril once daily. 0 06/21/2023 Discontinued Comment on above: Use 1 Basco in each nostril once daily. furosemide 40 [...] 2017 2:23pm Glucosam-Chondr Msm6-Manganese 1 EACH capsule (5 sources) Start: 03-20-2016 End: 08-17-2017 take 1 capsule by mouth once daily Glucosam-Chondr Msm6-Manganese 1 EACH capsule Discontinued 1 NMA PO DAILY March 20, 2016 12:00am August 17, 2017 3:23pm 250 ml heparin sodium, porcine 100 unt/ml injection (4 sources) Unfractionated Heparin, Anti-coagulant Start: 11-18-2023 End: 11-21-2023 Start: 11-18-2023 End: 11-18-2023 Start: 11-13-2023 End: 11-14-2023 hydrALAZINE hydrochloride 10 mg oral tablet (20 sources) Arteriolar Vasodilator Start: 03-17-2025 End: 03-17-2025 [...] Glargine-Yfgn 100 Unit/Ml (3 Ml) Subcutaneous Pen] (3 sources) Start: 2023 End: 01-31-2024 Insulin Glargine-Yfgn [Insulin Glargine-Yfgn 100 Unit/Ml (3 Ml) Subcutaneous Pen] (Insulin Glargine-Yfgn 100 Unit/Ml (3 Ml) Subcutaneous ) 100 unit/mL (3 mL) insulin pen Discontinued 25 U SC TWICE A DAY 2023 12:00am January 31, 2024 6:06pm diabetes Insulin Glargine-Yfgn [Insulin Glargine-Yfgn 100 Unit/Ml (3 [...] SC TWICE A DAY 2023 12:00am Insulin [place], Disposable, (GERTRUDE PEN NEEDLE) 32 x 5/32 Ndle (14 sources) Start: 01-22-2013 End: 06-21-2023 Insulin [place], Disposable, (GERTRUDE PEN NEEDLE) 32 x 5/32 Ndle Indications: Diabetes mellitus type 2, uncontrolled 5 times a day 150 Each 6 01/22/2013 06/21/2023 Discontinued Start: 01-22-2013 Insulin Needle [...] Tablet Discontinued 10 mg PO DAILY 0 November 28, 2024 12:00am December 09, 2024 1:33pm Start: 09-23-2021 End: 06-21-2023 take 1 tablet by mouth once daily Lisinopril 5 mg tablet Discontinued 5 mg PO DAILY September 26, 2022 5:45pm March 12, 2023 [...] End: 11-23-2023 menthol 0.04 mg/mg topical gel (11 sources) Start: 01-31-2024 End: 08-25-2024 Menthol (Biofreeze (Menthol)) 4 % gel Discontinued 1 NMA TOPICAL TWICE A DAY as needed for pain January 31, 2024 12:00am August 25, 2024 11:07pm 24 hr metFORMIN hydrochloride 500 mg extended release oral tablet (11 sources) Biguanide Start: 08-25-2024 End: 11-28-2024 take [...] End: 11-28-2023 mirtazapine 15 mg oral tablet (20 sources) Start: 02-09-2024 End: 10-10-2024 take 1 [...] niacin 500 mg extended release oral tablet (20 sources) Nicotinic Acid Start: 03-20-2016 End: 08-17-2017 take 1 tablet by mouth once daily Niacin 500 MG tablet extended release 24 hr Discontinued 500 mg PO DAILY March 20, 2016 12:00am August 17, 2017 9:56am nitrofurantoin, macrocrystals 25 mg / nitrofurantoin, monohydrate 75 mg oral capsule (11 sources) Nitrofuran Antibacterial Start: 01-31-2024 End: 02-09-2024 take 1 capsule by mouth twice daily at mealtime Nitrofurantoin Monohyd/M-Cryst (Macrobid) 100 mg capsule Discontinued 100 mg PO TWICE A DAY January 31, 2024 12:00am February 09, 2024 4:19pm must administer with a meal/food nitroglycerin 0.4 mg sublingual tablet (20 sources) Nitrate Vasodilator Start: 10-15-2021 End: 01-31-2024 [...] Intol,Lf,Soy-Fiber (Boost Glucose Control) 0.07-0.8 gram-kcal/mL liquid (5 sources) Start: 12-02-2023 End: 05-21-2024 take 1 [...] (Course of therapy completed) polyethylene glycol 3350 10214 mg powder for oral solution (14 sources) Osmotic Laxative Start: 12-02-2023 End: 01-31-2024 [...] / propylene glycol 3 mg/ml ophthalmic solution (17 sources) Start: 03-10-2023 End: 01-31-2024 Peg 400-Propylene [...] chloride 20 meq extended release oral tablet (16 sources) Start: 08-25-2024 End: 10-18-2024 Potassium Chloride [...] 11-17-2023 royal jelly 500 mg oral capsule (20 sources) Start: 03-20-2016 End: 08-17-2017 take 1 capsule by mouth once daily [place] Jelly 500 MG capsule Discontinued 675 mg PO DAILY March 20, 2016 12:00am August 17, 2017 3:25pm Start: 03-20-2016 End: 08-17-2017 Saw [place] (9 sources) Start: 03-20-2016 End: 08-17-2017 take 900 mg by mouth once daily [facility] [place] [facility] Discontinued 900 MG PO DAILY March 20, 2016 8:33pm August 17, 2017 3:25pm Start: 03-20-2016 End: 08-17-2017 take 900 mg by mouth once daily [facility] Discontinued 900 MG PO DAILY March 20, 2016 12:00am August 17, 2017 3:25pm Start: 03-20-2016 End: 08-17-2017 take 900 mg by mouth once daily [facility] Discontinued 900 MG PO DAILY March 19, 2016 11:00pm August 17, 2017 2:25pm [facility] 80 MG capsule (5 sources) Start: 03-20-2016 End: 08-17-2017 take 1 capsule by mouth once daily [facility] 80 MG capsule Discontinued 900 mg PO DAILY March 20, 2016 12:00am August 17, 2017 3:25pm simethicone 125 mg chewable tablet (11 sources) Start: 01-31-2024 End: 11-24-2024 take 1 tablet by mouth four times daily as needed Simethicone 125 mg tablet,chewable Discontinued 125 mg PO 4 TIMES DAILY as needed for abdominal distention January 31, 2024 12:00am November 24, 2024 9:23pm sodium chloride 0.111 meq/ml nasal spray (20 sources) Start: 01-31-2024 End: 03-17-2025 Sodium Chloride ([place] Saline) 0.65 % aerosol,spray Discontinued 2 NMA [...] associated with indwelling urethral catheter, initial encounter (HCC) (HCC) Take 1 tablet by mouth two times [...] therapy completed) Start: 11-24-2023 End: 11-28-2023 Testosterone (14 sources) Androgen Start: 03-20-2016 End: 08-17-2017 apply [...] 4 Episodic Acute and unspecified renal failure (14 sources) Uremia; Translations: [Unspecified kidney failure] Onset: [...] Chronic Aortic; peripheral; and visceral artery aneurysms (14 sources) Dissection of carotid artery; 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 Bacterial infection; unspecified site (20 sources) Infection due to enterococcus; Translations: [Streptococcal infection, unspecified site] Onset: 4 12-18-2023 Episodic Blindness and vision defects (14 sources) Visual hallucinations; Translations: [Visual hallucinations] 2023 [...] 8 07-15-2022 Episodic Deficiency and other anemia (11 sources) Normocytic anemia; Translations: [Anemia, unspecified] 02-01-2024 [...] [Dyslipidemia] Onset: 3 Chronic E Codes: Fall (13 sources) Fall; Translations: [Unspecified fall, initial encounter] 11-29-2023 Episodic Esophageal disorders (20 sources) Gastroesophageal reflux disease; Translations: [Gastro-esophageal reflux disease without esophagitis] Onset: 0 05-27-2020 Chronic Essential hypertension (20 sources) Unspecified essential hypertension; Translations: [Hypertensive disorder] Onset: 3 Chronic Fluid and electrolyte disorders (20 sources) Acute hypokalemia; Translations: [Hypokalemia] Onset: 4 Resolved: 4 2023 Episodic Fracture of upper limb (20 sources) Fracture of humerus ; Translations: [Unspecified fracture of shaft of humerus, unspecified arm, initial encounter for closed fracture] 01-29-2021 Episodic Genitourinary symptoms and ill-defined conditions (5 sources) Urge incontinence of urine; Translations: [Urge incontinence] Onset: 5 05-02-2024 Chronic Headache; including migraine (20 sources) Headache; Translations: [Headache] 10-01-2021 Episodic Intestinal obstruction without hernia (20 sources) Intestinal obstruction co-occurrent and due to decreased peristalsis; Translations: [Ileus, unspecified] Onset: 4 Resolved: 4 12-20-2023 Episodic Intracranial injury (20 sources) Traumatic brain injury with loss of [...] Onset: 5 05-11-2015 Chronic Other circulatory disease (20 sources) Disorder of carotid artery; Translations: [Disorder of arteries and arterioles, unspecified] 12-17-2020 Chronic Other circulatory disease (17 sources) Orthostatic hypotension; Translations: [Orthostatic hypotension] 03-10-2023 Episodic Other circulatory disease (2 sources) Orthostatic hypotension; Translations: [Orthostatic hypotension] 03-10-2023 Episodic Other diseases of kidney and ureters (5 sources) Renal impairment; Translations: [Disorder of kidney and ureter, unspecified] 12-11-2024 Episodic Other fractures (20 sources) Fracture of seventh cervical vertebra; Translations: [Unspecified displaced fracture of seventh cervical vertebra, initial encounter for closed fracture] 08-31-2013 Episodic Other gastrointestinal disorders (20 sources) Colostomy present; Translations: [Colostomy status] Onset: 0 05-27-2020 Chronic Other gastrointestinal disorders (12 sources) Ileostomy present; Translations: [Encounter for attention to ileostomy] 05-03-2024 Chronic Other gastrointestinal disorders (1 source) Ileostomy status; Translations: [High output ileostomy (HCC)] Onset: 4 Chronic Other gastrointestinal disorders (3 sources) High output ileostomy; Translations: [Other specified symptoms and signs involving the digestive system and abdomen] 06-04-2024 Episodic Other gastrointestinal disorders (9 sources) Diarrhea; Translations: [Diarrhea, unspecified] 11-24-2024 Episodic Other liver diseases (11 sources) Elevated liver enzymes level; Translations: [Abnormal levels of other serum enzymes] 01-31-2024 Episodic Other lower respiratory disease (20 sources) Restrictive lung disease; Translations: [Other disorders of lung] 02-19-2018 Episodic Other lower respiratory disease (20 sources) Hypoxia; Translations: [Hypoxemia] 10-01-2021 Episodic Other [...] classified] 03-11-2024 Chronic Other nervous system disorders (14 sources) Numbness of face; Translations: [Anesthesia of skin] 2023 Episodic Other non-traumatic joint disorders (11 sources) Pain in right shoulder; Translations: [Right shoulder pain] 03-11-2024 Episodic Other nutritional; endocrine; and metabolic disorders (20 sources) Hypophosphatemia; Translations: [Other disorders of phosphorus metabolism] Onset: 4 12-19-2023 Chronic Other nutritional; endocrine; and metabolic disorders (20 sources) Hypomagnesemia; Translations: [Hypomagnesemia] Onset: 4 12-19-2023 Chronic Other screening for suspected conditions (not mental disorders or infectious disease) (20 sources) CT of abdomen abnormal; Translations: [Abnormal findings on diagnostic imaging of other abdominal regions, including retroperitoneum] Onset: 4 Episodic Peripheral and visceral atherosclerosis (20 sources) Peripheral vascular disease, unspecified; Translations: [Peripheral vascular disease] Onset: 5 05-27-2020 Chronic Pleurisy; pneumothorax; pulmonary collapse (11 sources) Pleural effusion; Translations: [Pleural effusion, not [...] Onset: 5 10-06-2015 Episodic Superficial injury; contusion (13 sources) Contusion of hip; Translations: [Contusion of unspecified hip, initial encounter] 11-29-2023 Episodic Syncope (19 sources) Near syncope; Translations: [Syncope and collapse] 03-10-2023 Episodic Transient cerebral ischemia (20 sources) Transient cerebral ischemia; Translations: [Transient cerebral ischemic attack, unspecified] 10-30-2019 Chronic Unclassified (1 source) Obstructive sleep apnea (adult)(pediatric); Translations: [OBSTRUCTIVE SLEEP APNEA] Onset: 5 Chronic Unclassified (13 sources) 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 Unclassified (13 sources) PTCA Left Anterior Tibial and Paroneal [...] 4 12-18-2023 Episodic Fever of unknown origin (18 sources) Fever; Translations: [Fever, unspecified] Onset: 5 09-05-2024 Episodic Genitourinary symptoms and ill-defined conditions (20 sources) Retention of urine; Translations: [Retention of urine, unspecified] Onset: 4 03-11-2024 Episodic Immunizations and screening for infectious disease (1 source) Other specified vaccinations against streptococcus pneumoniae [pneumococcus]; Translations: [VACC-STREP PNEUMONIAE] Onset: 5 Episodic Nausea and vomiting (14 sources) Nausea and vomiting; Translations: [Nausea with vomiting, unspecified] Onset: 5 11-24-2024 Episodic Other aftercare (20 sources) 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; 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] Onset: 0 05-27-2020 Episodic Other aftercare (20 sources) Insulin dose changed; Translations: [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 Per cardiac cath @ [facility] 01/22/15 Severe Multivessel C AD; Patent sequential [...] 12-19-2023 Episodic Respiratory failure; insufficiency; arrest (adult) (18 sources) Acute respiratory failure; Translations: [Acute respiratory failure with hypoxia] Onset: 5 10-10-2024 Episodic Septicemia (except in labor) (20 sources) Sepsis; Translations: [Sepsis, unspecified organism] Onset: 5 01-11-2020 Episodic Unclassified (1 source) CHEST PAIN NOS; Translations: [CHEST PAIN NOS] Onset: 5 Unclassified (13 sources) invasive rectal adenocarcinoma 02-26-2022 Unclassified (2 sources) Onset: 3 Resolved: 3 05-24-2023 Urinary tract infections (20 sources) Urinary tract infectious disease; Translations: [Urinary tract infection, site not specified] Onset: Episodic Results Test Name Value Interpretation Reference Range Facility ACT Activated Clotting Timeo n 04-30-2025 ACTk CLOT TIME 187 sec High 74-137 [facility] Comment on above: Performed By: #### L 9100.0100 ####[facility] [address] [place], [address] Cardiac Cath Diagnosticon Cardiac Cath Diagnostic Normal [facility] Cardiac catheterization repo rtOrdered By: Prateek Smith on 04-30-2025 Cardiac catheterization study [facility] Imaging Services [address] [place] [address] Cardiac Cath Diagnostic MR#: [id number] Acct: [id number] Name: YONY VEGA Rep #:[id number] : 1955 69 From: Prateek Smith MD PCP: Dr. Dre De Los Santos MD Status:REG SD C Patient Name: YONY VEGA Study Date: 04/30/2025 Performing: Prateek Smith MD Ht: 67 inches 170.18 cm : 1955 Wt: 125.99 lbs 57.15 kg Age: 69 Gender: male BSA: 1.66 PROCEDURE(S) PERFORMED DC03-(39291)LHC/COR/LV /CABG Bilateral Iliac Angiography Aortic Root Injection CLINICAL PROFILE AND INDICATIONS Indications: Stable Known CAD Heart Failure: NYHA Class: 2, Newly Diagnosed: No, Heart Failure Type: Systolic Stress/Imaging Stress Test w/SPECT MPI: Yes Result: Positive High RiskStress Test with SPECT MPI: Positive High Risk Angina Classification Anginal Classification w/in 2 Weeks: Anginal Equivalent Dyspnea 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 ZUNIGA angiography through left radial, rest of the procedure through left femoral approach Bilateral Iliac Arteries patent; 90% heavily calcified Right Common femoral, Calcified 30% Left Common Femoral RECOMMENDATIONS Medical therapy DESCRIPTION OF PROCEDURE The patient arrived to the procedure lab. The risks and benefits of the procedure as well as a full description of our services here and current unavailability of surgical backup were fully explained to the patient and/or their significant other prior to the catheterization. The Timeout was completed, verifying the correct patient and procedure. The patient's procedural site was prepped and draped in the usual fashion. Local anesthetic was given subcutaneously to left radial region with Lidocaine 2%. Local anesthetic was given subcutaneously to right groin region with Lidocaine 2%. Local anesthetic was given subcutaneously to left groin region with Lidocaine 2%. Using a modified Seldinger technique, arterial access was obtained via the left radial artery, a 6Fr sheath was inserted., arterial access was obtained via the right femoral artery, a 6Fr sheath was inserted., arterial access was obtained via the left femoral artery, a 6Fr sheath was inserted. Left internal mammary artery graft to the LAD selective angiography was performed in multiple views using a 5 Fr. IM catheter. Right Coronary Artery selective angiography was then performed in multiple views using a 5 Fr. 3DRC (Armaan) catheter. Saphenous Vein graft to the Circumflex selective angiography was performed in multiple views using a 5 Fr. 3DRC (Armaan) catheter. Saphenous Vein graft to the RPDA selective angiography was performed in multiple views using a 5 Fr. 3DRC (Armaan) catheter. Saphenous Vein graft to the RPDA selective angiography was performed in multiple views using a 5 Fr. JR 4 catheter.Contrast was injected through the sheath and the Right Iliac and Femoral artery were assessed for possible closure device.The left arm arterial sheath was pulled and a TR Band was applied for hemostasis CORONARY ANGIOGRAPHY DOMINANCE: Right Dominant LEFT MAIN: Tubular 100% Ostial lesion in LMCA RIGHT CORONARY ARTERY: RCA: Tubular 100% Proximal lesion in RCA RT PDA: Tubular 80% Ostial lesion in RT PDA GRAFTS: ZUNIGA Graft to DIAG1 SVG Graft to DIAG2 Tubular 100% lesion in SVG Graft to DIAG2 SVG Graft to RT PDA COMPLICATIONS No Complications PROCEDURE MEDICATIONS Versed 1 mg IV Fentanyl 50 mcg IV Oxygen: 2 L/min via nasal cannula Baby Aspirin (81mg) 1 Tabs PO @ 04/30/2025 09:39:11 Heparin given IA 04/30/2025 12:06:44 Heparin 3000 unit(s) IV 04/30/2025 12:15:09 Verapamil 2.5mg, Ntg 200mcgs, 2000 units of Heparin given IA 04/30/2025 12:06:44 SUMMARY OF HEMODYNAMIC DATA Time AIR REST AO 115/52 (75) SA 12:11:41 Signed By Prateek Smith MD On 04/30/2025 14:48:00 Signed By Prateek Smith MD On 04/30/2025 14:46:44 Prateek Smith MD 04/30/25 1448 Date _ Prateek Smith MD Cosigner Signature: Date (if indicated) CC: Dr. Prateek Smith MD; Dr. Dre De Los Santos MD ~ Date Dictated: 04/30/25 1206 Date Transcribed: 04/30/25 1448 Supervisor Photocomposition: AR Signed [facility] Work Phone: Chest PA and Lateralon 04-28 Chest PA and Lateral Normal [facility] Absolute lymphocyte countOrd ered By: Tereza Brito on 04-24-2025 Lymphocytes Auto (Unsp spec) [#/Vol] 1.02 10*3/uL 0.83-4.51 [facility] Absolute neutrophil countOrd ered By: Tereza Brito on 04-24-2025 Neutrophils (Bld) [#/Vol] 4.2 10*3/uL 2.0-7.7 [facility] Anion gap in Serum or Plasma Ordered By: Tereza Brito on 04-24-2025 Anion gap [Moles/Vol] 14 mmol/L 5-15 [facility] Automated lymphocyte count a s percentage of total leukocytesOrdered By: Tereza Brito on 04-24-2025 Lymphocytes/100 WBC Auto (Unsp spec) 17.5 % Low - [facility] BUN/creatinine ratioOrdered By: Tereza Brito on 04-24-2025 Urea nitrogen/Creatinine [Mass ratio] 15.8 mg/mg - [facility] Basic Metabolic Profile (BMP )on 04-24-2025 BUN/CRE 15.8 RATIO Normal - [facility] Comment on above: Performed By: #### L 100.0100, L500.2500 ####[facility] [address] [place], [address] Calcium [Mass/Vol] 9.6 mg/dL Normal 7.6-11.0 [facility] Comment on above: Performed By: #### L 100.0100, L500.2500 ####[facility] [address] [place], [address] Chloride [Moles/Vol] 105 mmol/L Normal 98-108 [facility] Comment on above: Performed By: #### L 100.0100, L500.2500 ####[facility] [address] [place], [address] CO2 [Moles/Vol] 21.3 mmol/L Normal 21.0-32.0 [facility] Comment on above: Performed By: #### L 100.0100, L500.2500 ####[facility] [address] [place], [address] Creatinine [Mass/Vol] 1.25 mg/dL High 0.70-1.20 [facility] Comment on above: Performed By: #### L 100.0100, L500.2500 ####[facility] [address] [place], [address] GAP 14 Normal - [facility] Comment on above: Performed By: #### L 100.0100, L500.2500 ####[facility] [address] [place], [address] GFR/1.73 sq M.predicted among non-blacks MDRD (S/P/Bld) [Vol rate/Area] 63 mL/min/{1.73_m2} Normal >60 [facility] Comment on above: Result Comment: mL/m in/1.73m2 CKD-EPI Creatinine Equation (2020) Performed By: #### L 100.0100, L500.2500 ####[facility] [address] [place], [address] Glucose [Mass/Vol] 126 mg/dL High 70-99 [facility] Comment on above: Performed By: #### L 100.0100, L500.2500 ####[facility] [address] [place], [address] Potassium [Moles/Vol] 4.2 mmol/L Normal 3.3-5.1 [facility] Comment on above: Performed By: #### L 100.0100, L500.2500 ####[facility] [address] [place], [address] Sodium [Moles/Vol] 140 mmol/L Normal 133-145 [facility] Comment on above: Performed By: #### L 100.0100, L500.2500 ####[facility] [address] [place], [address] Urea nitrogen [Mass/Vol] 20 mg/dL High 4-19 [facility] Comment on above: Performed By: #### L 100.0100, L500.2500 ####[facility] [address] [place], [address] Basophil percentageOrdered B y: Tereza Brito on 04-24-2025 Basophils/100 WBC (Bld) 0.3 % 0-1 [facility] CBC W/Diff, Automatedon 04-07 Absolute Lymph 1.02 X10 3/uL Normal 0.83-4.51 [facility] Comment on above: Performed By: #### L 100.0100, L500.2500 ####[facility] [address] [place], [address] Absolute Neut 4.2 X10 3/uL Normal 2.0-7.7 [facility] Comment on above: Performed By: #### L 100.0100, L500.2500 ####[facility] [address] [place], [address] Basophils/100 WBC (Bld) 0.3 % Normal 0-1 [facility] Comment on above: Performed By: #### L 100.0100, L500.2500 ####[facility] [address] [place], [address] Eosinophils/100 WBC (Bld) 1.4 % Normal 0-5 [facility] Comment on above: Performed By: #### L 100.0100, L500.2500 ####[facility] [address] [place], [address] Erythrocyte distribution width (RBC) [Ratio] 14.4 % Normal 11.6-14.6 [facility] Comment on above: Performed By: #### L 100.0100, L500.2500 ####[facility] [address] [place], [address] Hematocrit (Bld) [Volume fraction] 40.3 % Normal 40-54 [facility] Comment on above: Performed By: #### L 100.0100, L500.2500 ####[facility] [address] [place], [address] Hemoglobin (Bld) [Mass/Vol] 13.2 g/dL Normal 13.0-16.5 [facility] Comment on above: Performed By: #### L 100.0100, L500.2500 ####[facility] [address] [place], [address] IG% 0.200 Normal 0.0-0.9 [facility] Comment on above: Result Comment: IG% - Immature Granulocytes (promyelocytes, myelocytes andmetamyelocytes) > 1% indicates that a LEFT SHIFT is Present. Performed By: #### L 100.0100, L500.2500 ####[facility] [address] [place], [address] Lymphocytes/100 WBC (Bld) 17.5 % Low 19-41 [facility] Comment on above: Performed By: #### L 100.0100, L500.2500 ####[facility] [address] [place], [address] MCH (RBC) [Entitic mass] 29.2 pg Normal 27.0-32.0 [facility] Comment on above: Performed By: #### L 100.0100, L500.2500 ####[facility] [address] [place], [address] MCHC (RBC) [Mass/Vol] 32.8 g/dL Normal 32-36 [facility] Comment on above: Performed By: #### L 100.0100, L500.2500 ####[facility] [address] [place], [address] MCV (RBC) [Entitic vol] 89.2 fL Normal 80-94 [facility] Comment on above: Performed By: #### L 100.0100, L500.2500 ####[facility] [address] [place], [address] Monocytes/100 WBC (Bld) 8.9 % Normal 0-10 [facility] Comment on above: Performed By: #### L 100.0100, L500.2500 ####[facility] [address] [place], [address] Neutrophils/100 WBC (Bld) 71.7 % High 47-70 [facility] Comment on above: Performed By: #### L 100.0100, L500.2500 ####[facility] [address] [place], [address] Nucleated RBC (Bld) [#/Vol] 0 10*3/uL Normal 0-5 [facility] Comment on above: Performed By: #### L 100.0100, L500.2500 ####[facility] [address] [place], [address] Platelet mean volume (Bld) [Entitic vol] 10.2 fL Normal 6.2-12.0 [facility] Comment on above: Performed By: #### L 100.0100, L500.2500 ####[facility] [address] [place], [address] Platelets (Bld) [#/Vol] 242 10*3/uL Normal 150-450 [facility] Comment on above: Performed By: #### L 100.0100, L500.2500 ####[facility] [address] [place], [address] RBC (Bld) [#/Vol] 4.52 10*6/uL Low 4.6-6.2 [facility] Comment on above: Performed By: #### L 100.0100, L500.2500 ####[facility] [address] [place], [address] RDW SD 46.7 fl High 35.1-43.9 [facility] Comment on above: Performed By: #### L 100.0100, L500.2500 ####[facility] [address] [place], [address] WBC (Bld) [#/Vol] 5.8 10*3/uL Normal 4.4-11.0 [facility] Comment on above: Performed By: #### L 100.0100, L500.2500 ####[facility] [address] [place], [address] Carbon dioxide, total [Moles /volume] in Central venous bloodOrdered By: Tereza Brito on 04-24-2025 CO2 [Moles/Vol] 21.3 mmol/L 21.0-32.0 [facility] Chloride assayOrdered By: Roland Brito on 04-24-2025 Chloride [Moles/Vol] 105 mmol/L 98-108 [facility] Eosinophil percentageOrdered By: Tereza Brito on 04-24-2025 Eosinophils/100 WBC (Bld) 1.4 % 0-5 [facility] Erythrocyte distribution wid th ratioOrdered By: Tereza Brito on 04-24-2025 Erythrocyte distribution width (RBC) [Ratio] 14.4 % 11.6-14.6 [facility] Erythrocyte distribution wid th standard deviationOrdered By: Tereza Brito on 04-24-2025 Erythrocyte distribution width (RBC) [Ratio] 46.7 fl High 35.1-43.9 [facility] Glomerular filtration rate ( GFR) estimation/1.73 sq m using serum, plasma, or whole bOrdered By: Tereza Brito on 04-24-2025 GFR/1.73 sq M.predicted among non-blacks MDRD (S/P/Bld) [Vol rate/Area] 63 mL/min/{1.73_m2} >60 [facility] Comment on above: mL/min/1.73m2 CKD-EP I Creatinine Equation (2020) Hematocrit Auto (Bld) [Volum e fraction]Ordered By: Tereza Brito on 04-24-2025 Hematocrit (Bld) [Volume fraction] 40.3 % 40-54 [facility] Hemoglobin measurementOrdere d By: Tereza Brito on 04-24-2025 Hemoglobin (Bld) [Mass/Vol] 13.2 g/dL 13.0-16.5 [facility] Immature granulocytes/100 WB C Auto (Bld)Ordered By: Tereza Brito on 04-24-2025 Immature granulocytes/100 WBC (Bld) 0.200 % 0.0-0.9 [facility] Comment on above: IG% - Immature Granu locytes (promyelocytes, myelocytes and metamyelocytes) > 1% indicates that a LEFT SHIFT is Present. MCV (mean corpuscular volume ) determinationOrdered By: Tereza Brito on 04-24-2025 MCV (RBC) [Entitic vol] 89.2 fL 80-94 [facility] Mean corpuscular hemoglobin (MCH) determinationOrdered By: Tereza Brito on 04-24-2025 MCH (RBC) [Entitic mass] 29.2 pg 27.0-32.0 [facility] Mean corpuscular hemoglobin concentration (MCHC) determinationOrdered By: Tereza Brito on 04-24-2025 MCHC (RBC) [Mass/Vol] 32.8 g/dL 32-36 [facility] Mean platelet volume determi nationOrdered By: Tereza Brito on 04-24-2025 Platelet mean volume (Bld) [Entitic vol] 10.2 fL 6.2-12.0 [facility] Monocyte percentageOrdered B y: Tereza Brito on 04-24-2025 Monocytes/100 WBC (Bld) 8.9 % 0-10 [facility] Neutrophil percentageOrdered By: Tereza Brito on 04-24-2025 Neutrophils/100 WBC (Bld) 71.7 % High 47-70 [facility] Nucleated red blood cell per centageOrdered By: Tereza Brito on 04-24-2025 Nucleated RBC/100 WBC (Bld) [Ratio] 0 % 0-5 [facility] PSA,Total - Annual Screenon 04-24-2025 PSA,TOT SCREEN 1.16 ng/mL Normal 0.02-4.00 [facility] Comment on above: Order Comment: Order Date: 04/24/25Order Info: 2857-1 - PSAComments: screening for prostate cancer Result Comment: This test was performed using the [employer] tPSAmethod. Measured values of a patient??sample can varydepending on the testing procedure used. PSA valuesdetermined on patient samples by different testingprocedures cannot be used interchangeably. If there is achange in PSA assays while monitoring therapy, sequentialtesting should be performed to confirm baseline values. Performed By: #### L 501.9910 ####[facility] [address] [place], [address] Platelet countOrdered By: Roland Brito on 04-24-2025 Platelets (Bld) [#/Vol] 242 10*3/uL 150-450 [facility] Potassium measurement (mass/ volume)Ordered By: Tereza Brito on 04-24-2025 Potassium (Unsp spec) [Mass/Vol] 4.2 mmol/L 3.3-5.1 [facility] RBC Auto (Bld) [#/Vol]Ordere d By: Tereza Brito on 04-24-2025 RBC (Bld) [#/Vol] 4.52 10*6/uL Low 4.6-6.2 [facility] Serum creatinine measurement (mass/volume)Ordered By: Tereza Brito on 04-24-2025 Creatinine [Mass/Vol] 1.25 mg/dL High 0.70-1.20 [facility] Serum glucose measurement (m ass/volume)Ordered By: Tereza Brito on 04-24-2025 Glucose [Mass/Vol] 126 mg/dL High 70-99 [facility] Serum or plasma calcium isael urement (mass/volume)Ordered By: Tereza Brito on 04-24-2025 Calcium [Mass/Vol] 9.6 mg/dL 7.6-11.0 [facility] Serum or plasma urea nitroge n measurement (mass/volume)Ordered By: Tereza Brito on 04-24-2025 Urea nitrogen [Mass/Vol] 20 mg/dL High 4-19 [facility] Sodium levelOrdered By: Eduarda Brito on 04-24-2025 Sodium [Moles/Vol] 140 mmol/L 133-145 [facility] White blood cell (WBC) count Ordered By: Tereza Brito on 04-24-2025 WBC (Bld) [#/Vol] 5.8 10*3/uL 4.4-11.0 [facility] Cardiovascular stress test r eportOrdered By: Prateek Smith on 04-14-2025 Study report [facility] [address] [place] [address] MR#: [id number] Acct: [id number] Name: YONY VEGA Rep #: [id number] : 1955 69 From: Prateek Smith MD Primary Care: Dr. Dre De Los Santos MD Status: REG CLI Referring Dr: Tereza Brito NP [employer] ENGINEER-C Sex: M C Stress Test Report Date: 04/14/2025 Procedure: Pharmacologic stress nuclear imaging study Indications: Coronary artery disease Consent: Per the patient Procedure: The patient underwent pharmacologic (Regadenoson 0.4mg ) evaluation with a peak heart rate of 94 beats per minute (61%predicted maximal heart rate) and a peak blood pressure of 152/100 mmHg. The baseline ECG demonstrated sinus rhythm with nonspecific T wave changes. Thepeak pharmacologic ECG failed to show any diagnostic ischemic changes. There were no cardiac dysrhythmias pretest, during pharmacologic infusion, or recovery. There was no complaint of chest discomfort during pharmacologic infusion or recovery. The patient was injected with 11.8 millicuries of technetium 99m Cardiolite and subsequently rest SPECT Cardiolite nuclear imaging was obtained in the horizontal long, vertical long, and short axis views. The patient underwent pharmacologic (Regadenoson) evaluation. The patient was injected with 34.7 millicuries of technetium 99m Cardiolite and subsequently stress SPECT Cardiolite nuclear imaging was obtained in the horizontal long, vertical long, and short axis views. A gated Cardiolite study at peak stress was obtained. The examination was stopped secondary to completion of protocol. Rest and stress SPECT Cardiolite nuclear imaging status post realignment, normalization, and attenuation correction demonstrate moderate to large size reversible perfusion defect of the lateral wall consistent with ischemia. Thereis end systolic thickening and brightening. The gated study reveals lateral hypokinesis. The reported LVEF is 41%. Impression: 1. Pharmacologic (Regadenoson) evaluation 2. Peak pharmacologic ECG with no diagnostic changes. 3. There were no cardiac dysrhythmias pretest, during pharmacologic infusion, or recovery. 5. Moderate to large size reversible perfusion defect of the lateral wall consistent with ischemia. 6. The gated Cardiolite study reports an LVEF of 41%. This note was generated with Ferf[employer]ation software. It may contain incorrectwords, spelling, and punctuation that were not noted in checking the note beforesigning. 04/14/25911 Date _ Prateek Luis MD CC: SHUBHAM Brito; Dr. Dre De Los Santos MD ~ Date Dictated: 04/14/25908 Date Transcribed: 04/14/25908 Supervisor Photocomposition: ANALILIA Barone [facility] Work Phone: Stress Reporton 04-14-2025 Stress Report Normal [facility] Absolute lymphocyte countOrd ered By: Tereza Brito on 03-17-2025 Lymphocytes Auto (Unsp spec) [#/Vol] 1.03 10*3/uL 0.83-4.51 [facility] Absolute neutrophil countOrd ered By: Tereza Brito on 03-17-2025 Neutrophils (Bld) [#/Vol] 7.7 10*3/uL 2.0-7.7 [facility] Anion gap in Serum or Plasma Ordered By: Tereza Brito on 03-17-2025 Anion gap [Moles/Vol] 16 mmol/L High 5-15 [facility] Automated lymphocyte count a s percentage of total leukocytesOrdered By: Tereza Brito on 03-17-2025 Lymphocytes/100 WBC Auto (Unsp spec) 10.5 % Low 19-41 [facility] BUN/creatinine ratioOrdered By: Tereza Brito on 03-17-2025 Urea nitrogen/Creatinine [Mass ratio] 26.7 mg/mg High 10-20 [facility] Basic Metabolic Profile (BMP )on 03-17-2025 BUN/CRE 26.7 RATIO High 10-20 [facility] Comment on above: Performed By: #### L 500.2500, L100.0100 ####[facility] [address] [place], [address] Calcium [Mass/Vol] 10.1 mg/dL Normal 7.6-11.0 [facility] Comment on above: Performed By: #### L 500.2500, L100.0100 ####[facility] [address] [place], [address] Chloride [Moles/Vol] 99 mmol/L Normal 98-108 [facility] Comment on above: Performed By: #### L 500.2500, L100.0100 ####[facility] [address] [place], [address] CO2 [Moles/Vol] 20.2 mmol/L Low 21.0-32.0 [facility] Comment on above: Performed By: #### L 500.2500, L100.0100 ####[facility] [address] [place], [address] Creatinine [Mass/Vol] 1.70 mg/dL High 0.70-1.20 [facility] Comment on above: Performed By: #### L 500.2500, L100.0100 ####[facility] [address] [place], [address] GAP 16 High 5-15 [facility] Comment on above: Performed By: #### L 500.2500, L100.0100 ####[facility] [address] [place], [address] GFR/1.73 sq M.predicted among non-blacks MDRD (S/P/Bld) [Vol rate/Area] 44 mL/min/{1.73_m2} Low >60 [facility] Comment on above: Result Comment: mL/m in/1.73m2 CKD-EPI Creatinine Equation (2020) Performed By: #### L 500.2500, L100.0100 ####[facility] [address] [place], [address] Glucose [Mass/Vol] 217 mg/dL High 70-99 [facility] Comment on above: Performed By: #### L 500.2500, L100.0100 ####[facility] [address] [place], [address] Potassium [Moles/Vol] 4.9 mmol/L Normal 3.3-5.1 [facility] Comment on above: Performed By: #### L 500.2500, L100.0100 ####[facility] [address] [place], [address] Sodium [Moles/Vol] 136 mmol/L Normal 133-145 [facility] Comment on above: Performed By: #### L 500.2500, L100.0100 ####[facility] [address] [place], [address] Urea nitrogen [Mass/Vol] 45 mg/dL High 4-19 [facility] Comment on above: Performed By: #### L 500.2500, L100.0100 ####[facility] [address] [place], [address] Basophil percentageOrdered B y: Tereza Brito on 03-17-2025 Basophils/100 WBC (Bld) 0.3 % 0-1 [facility] CBC W/Diff, Automatedon 03-07 Absolute Lymph 1.03 X10 3/uL Normal 0.83-4.51 [facility] Comment on above: Performed By: #### L 500.2500, L100.0100 ####[facility] [address] [place], [address] Absolute Neut 7.7 X10 3/uL Normal 2.0-7.7 [facility] Comment on above: Performed By: #### L 500.2500, L100.0100 ####[facility] [address] [place], [address] Basophils/100 WBC (Bld) 0.3 % Normal 0-1 [facility] Comment on above: Performed By: #### L 500.2500, L100.0100 ####[facility] [address] [place], [address] Eosinophils/100 WBC (Bld) 0.2 % Normal 0-5 [facility] Comment on above: Performed By: #### L 500.2500, L100.0100 ####[facility] [address] [place], [address] Erythrocyte distribution width (RBC) [Ratio] 13.3 % Normal 11.6-14.6 [facility] Comment on above: Performed By: #### L 500.2500, L100.0100 ####[facility] [address] [place], [address] Hematocrit (Bld) [Volume fraction] 45.5 % Normal 40-54 [facility] Comment on above: Performed By: #### L 500.2500, L100.0100 ####[facility] [address] [place], [address] Hemoglobin (Bld) [Mass/Vol] 15.0 g/dL Normal 13.0-16.5 [facility] Comment on above: Performed By: #### L 500.2500, L100.0100 ####[facility] [address] [place], [address] IG% 0.300 Normal 0.0-0.9 [facility] Comment on above: Result Comment: IG% - Immature Granulocytes (promyelocytes, myelocytes andmetamyelocytes) > 1% indicates that a LEFT SHIFT is Present. Performed By: #### L 500.2500, L100.0100 ####[facility] [address] [place], [address] Lymphocytes/100 WBC (Bld) 10.5 % Low 19-41 [facility] Comment on above: Performed By: #### L 500.2500, L100.0100 ####[facility] [address] [place], [address] MCH (RBC) [Entitic mass] 29.3 pg Normal 27.0-32.0 [facility] Comment on above: Performed By: #### L 500.2500, L100.0100 ####[facility] [address] [place], [address] MCHC (RBC) [Mass/Vol] 33.0 g/dL Normal 32-36 [facility] Comment on above: Performed By: #### L 500.2500, L100.0100 ####[facility] [address] [place], [address] MCV (RBC) [Entitic vol] 88.9 fL Normal 80-94 [facility] Comment on above: Performed By: #### L 500.2500, L100.0100 ####[facility] [address] [place], [address] Monocytes/100 WBC (Bld) 10.4 % High 0-10 [facility] Comment on above: Performed By: #### L 500.2500, L100.0100 ####[facility] [address] [place], [address] Neutrophils/100 WBC (Bld) 78.3 % High 47-70 [facility] Comment on above: Performed By: #### L 500.2500, L100.0100 ####[facility] [address] [place], [address] Nucleated RBC (Bld) [#/Vol] 0 10*3/uL Normal 0-5 [facility] Comment on above: Performed By: #### L 500.2500, L100.0100 ####[facility] [address] [place], [address] Platelet mean volume (Bld) [Entitic vol] 10.1 fL Normal 6.2-12.0 [facility] Comment on above: Performed By: #### L 500.2500, L100.0100 ####[facility] [address] [place], [address] Platelets (Bld) [#/Vol] 285 10*3/uL Normal 150-450 [facility] Comment on above: Performed By: #### L 500.2500, L100.0100 ####[facility] [address] [place], [address] RBC (Bld) [#/Vol] 5.12 10*6/uL Normal 4.6-6.2 [facility] Comment on above: Performed By: #### L 500.2500, L100.0100 ####[facility] [address] [place], [address] RDW SD 43.6 fl Normal 35.1-43.9 [facility] Comment on above: Performed By: #### L 500.2500, L100.0100 ####[facility] [address] [place], [address] WBC (Bld) [#/Vol] 9.9 10*3/uL Normal 4.4-11.0 [facility] Comment on above: Performed By: #### L 500.2500, L100.0100 ####[facility] [address] [place], [address] Carbon dioxide, total [Moles /volume] in Central venous bloodOrdered By: Tereza Brito on 03-17-2025 CO2 [Moles/Vol] 20.2 mmol/L Low 21.0-32.0 [facility] Cardiology Visit Reporton Cardiology Visit Report Normal [facility] Chloride assayOrdered By: Roland Brito on 03-17-2025 Chloride [Moles/Vol] 99 mmol/L 98-108 [facility] Eosinophil percentageOrdered By: Tereza Brito on 03-17-2025 Eosinophils/100 WBC (Bld) 0.2 % 0-5 [facility] Erythrocyte distribution wid th ratioOrdered By: Tereza Brito on 03-17-2025 Erythrocyte distribution width (RBC) [Ratio] 13.3 % 11.6-14.6 [facility] Erythrocyte distribution wid th standard deviationOrdered By: Tereza Brito on 03-17-2025 Erythrocyte distribution width (RBC) [Ratio] 43.6 fl 35.1-43.9 [facility] Glomerular filtration rate ( GFR) estimation/1.73 sq m using serum, plasma, or whole bOrdered By: Tereza Brito on 03-17-2025 GFR/1.73 sq M.predicted among non-blacks MDRD (S/P/Bld) [Vol rate/Area] 44 mL/min/{1.73_m2} Low >60 [facility] Comment on above: mL/min/1.73m2 CKD-EP I Creatinine Equation (2020) Hematocrit Auto (Bld) [Volum e fraction]Ordered By: Tereza Brito on 03-17-2025 Hematocrit (Bld) [Volume fraction] 45.5 % 40-54 [facility] Hemoglobin measurementOrdere d By: Tereza Brito on 03-17-2025 Hemoglobin (Bld) [Mass/Vol] 15.0 g/dL 13.0-16.5 [facility] Immature granulocytes/100 WB C Auto (Bld)Ordered By: Tereza Brito on 03-17-2025 Immature granulocytes/100 WBC (Bld) 0.300 % 0.0-0.9 [facility] Comment on above: IG% - Immature Granu locytes (promyelocytes, myelocytes and metamyelocytes) > 1% indicates that a LEFT SHIFT is Present. MCV (mean corpuscular volume ) determinationOrdered By: Tereza Brito on 03-17-2025 MCV (RBC) [Entitic vol] 88.9 fL 80-94 [facility] Mean corpuscular hemoglobin (MCH) determinationOrdered By: Tereza Brito on 03-17-2025 MCH (RBC) [Entitic mass] 29.3 pg 27.0-32.0 [facility] Mean corpuscular hemoglobin concentration (MCHC) determinationOrdered By: Tereza Brito on 03-17-2025 MCHC (RBC) [Mass/Vol] 33.0 g/dL 32-36 [facility] Mean platelet volume determi nationOrdered By: Tereza Brito on 03-17-2025 Platelet mean volume (Bld) [Entitic vol] 10.1 fL 6.2-12.0 [facility] Monocyte percentageOrdered B y: Tereza Brito on 03-17-2025 Monocytes/100 WBC (Bld) 10.4 % High 0-10 [facility] Neutrophil percentageOrdered By: Tereza Brito on 03-17-2025 Neutrophils/100 WBC (Bld) 78.3 % High 47-70 [facility] Nucleated red blood cell per centageOrdered By: Tereza Brito on 03-17-2025 Nucleated RBC/100 WBC (Bld) [Ratio] 0 % 0-5 [facility] Platelet countOrdered By: Roland Brito on 03-17-2025 Platelets (Bld) [#/Vol] 285 10*3/uL 150-450 [facility] Potassium measurement (mass/ volume)Ordered By: Tereza Brito on 03-17-2025 Potassium (Unsp spec) [Mass/Vol] 4.9 mmol/L 3.3-5.1 [facility] RBC Auto (Bld) [#/Vol]Ordere d By: Tereza Brito on 03-17-2025 RBC (Bld) [#/Vol] 5.12 10*6/uL 4.6-6.2 [facility] Serum creatinine measurement (mass/volume)Ordered By: Tereza Brito on 03-17-2025 Creatinine [Mass/Vol] 1.70 mg/dL High 0.70-1.20 [facility] Serum glucose measurement (m ass/volume)Ordered By: Tereza Brito on 03-17-2025 Glucose [Mass/Vol] 217 mg/dL High 70-99 [facility] Serum or plasma calcium isael urement (mass/volume)Ordered By: Tereza Brito on 03-17-2025 Calcium [Mass/Vol] 10.1 mg/dL 7.6-11.0 [facility] Serum or plasma urea nitroge n measurement (mass/volume)Ordered By: Tereza Brito on 03-17-2025 Urea nitrogen [Mass/Vol] 45 mg/dL High 4-19 [facility] Sodium levelOrdered By: Eduarda Brito on 03-17-2025 Sodium [Moles/Vol] 136 mmol/L 133-145 [facility] White blood cell (WBC) count Ordered By: Tereza Brito on 03-17-2025 WBC (Bld) [#/Vol] 9.9 10*3/uL 4.4-11.0 [facility] CNOVon 12-31-2024 CNOV Office Visit (UROLMD ) ISAIAS VEGA ([id number]) 1955 M Date Time Provider Department 12/31/24 2:40 PM BATOOL AU During your visit today, we recorded the following information about you: 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 Normal [facility] Cardiology Visit Reporton Cardiology Visit Report Normal [facility] Basic Metabolic Profile (BMP )on 12-03-2024 BUN/CRE 29.1 RATIO High 10-20 [facility] Comment on above: Performed By: #### L 500.2500 ####[facility] [address] [place], [address] Calcium [Mass/Vol] 9.4 mg/dL Normal 7.6-11.0 [facility] Comment on above: Performed By: #### L 500.2500 ####[facility] [address] [facility] [place], [address] Chloride [Moles/Vol] 100 mmol/L Normal 98-108 [facility] Comment on above: Performed By: #### L 500.2500 ####[facility] [address] [facility] [place], [address] CO2 [Moles/Vol] 17.7 mmol/L Low 21.0-32.0 [facility] Comment on above: Performed By: #### L 500.2500 ####[facility] [address] [place], [address] Creatinine [Mass/Vol] 2.46 mg/dL High 0.70-1.20 [facility] Comment on above: Performed By: #### L 500.2500 ####[facility] [address] [place], [address] ECRCL 27.24 ml/min Low 50-250 [facility] Comment on above: Performed By: #### L 500.2500 ####[facility] [address] [place], [address] GAP 12 Normal 5-15 [facility] Comment on above: Performed By: #### L 500.2500 ####[facility] [address] [place], [address] GFR/1.73 sq M.predicted among non-blacks MDRD (S/P/Bld) [Vol rate/Area] 28 mL/min/{1.73_m2} Low >60 [facility] Comment on above: Result Comment: mL/m in/1.73m2 CKD-EPI Creatinine Equation (2020) Performed By: #### L 500.2500 ####[facility] [address] [place], [address] Glucose [Mass/Vol] 253 mg/dL High 70-99 [facility] Comment on above: Performed By: #### L 500.2500 ####[facility] [address] [place], [address] Potassium [Moles/Vol] 5.9 mmol/L High 3.3-5.1 [facility] Comment on above: Performed By: #### L 500.2500 ####[facility] [address] [place], [address] Sodium [Moles/Vol] 129 mmol/L Low 133-145 [facility] Comment on above: Performed By: #### L 500.2500 ####[facility] [address] [place], [place], [address] Urea nitrogen [Mass/Vol] 72 mg/dL High 4-19 [facility] Comment on above: Performed By: #### L 500.2500 ####[facility] [address] [place], [place], [address] Emergency Department Summary on 12-03-2024 Emergency Department Summary Normal [facility] 12 Lead EKGon 12-02-2024 12 Lead EKG Normal [facility] Anion gap in Serum or Plasma Ordered By: Ross Crump on 12-02-2024 Anion gap [Moles/Vol] 12 mmol/L 5-15 [facility] BUN/creatinine ratioOrdered By: Ross Crump on 12-02-2024 Urea nitrogen/Creatinine [Mass ratio] 29.1 mg/mg High 10-20 [facility] Carbon dioxide, total [Moles /volume] in Central venous bloodOrdered By: Ross Crump on 12-02-2024 CO2 [Moles/Vol] 17.7 mmol/L Low 21.0-32.0 [facility] Chloride assayOrdered By: Marifer Crump on 12-02-2024 Chloride [Moles/Vol] 100 mmol/L 98-108 [facility] Glomerular filtration rate ( GFR) estimation/1.73 sq m using serum, plasma, or whole bOrdered By: Ross Crump on 12-02-2024 GFR/1.73 sq M.predicted among non-blacks MDRD (S/P/Bld) [Vol rate/Area] 28 mL/min/{1.73_m2} Low >60 [facility] Comment on above: mL/min/1.73m2 CKD-EP I Creatinine Equation (2020) Potassium measurement (mass/ volume)Ordered By: Ross Crump on 12-02-2024 Potassium (Unsp spec) [Mass/Vol] 5.9 mmol/L High 3.3-5.1 [facility] Serum creatinine measurement (mass/volume)Ordered By: Ross Crump on 12-02-2024 Creatinine [Mass/Vol] 2.46 mg/dL High 0.70-1.20 [facility] Serum glucose measurement (m ass/volume)Ordered By: Ross Crump on 12-02-2024 Glucose [Mass/Vol] 253 mg/dL High 70-99 [facility] Serum or plasma calcium isael urement (mass/volume)Ordered By: Ross Crump on 12-02-2024 Calcium [Mass/Vol] 9.4 mg/dL 7.6-11.0 [facility] Serum or plasma urea nitroge n measurement (mass/volume)Ordered By: Ross Crump on 12-02-2024 Urea nitrogen [Mass/Vol] 72 mg/dL High 4-19 [facility] Sodium levelOrdered By: Octavio Crump on 12-02-2024 Sodium [Moles/Vol] 129 mmol/L Low 133-145 [facility] [employer] 8623on OP Normal [facility] Comment on above: Performed By: #### M 600.5000 ####[facility] [address] [place], [place], [address] Anion gap [Moles/Vol]Ordered By: Sipsey Maurice on 11-28-2024 Anion gap in Serum or Plasma 11 12-19 [facility] Anion gap in Serum or Plasma Ordered By: Sipsey Maurice on 11-28-2024 Anion gap [Moles/Vol] 11 mmol/L 12-19 [facility] BUN/creatinine ratioOrdered By: Tahira Richards on 11-28-2024 Urea nitrogen/Creatinine [Mass ratio] 21.2 mg/mg High - [facility] BUN/creatinine ratio 21.2 RATIO High 10-20 [facility] Basic Metabolic Profile (BMP )on 11-28-2024 BUN/CRE 21.2 RATIO High 05-26 [facility] Comment on above: Performed By: #### L 500.2500 ####[facility] [address] [place], [place], [address] Calcium [Mass/Vol] 8.8 mg/dL Normal 7.6-11.0 [facility] Comment on above: Performed By: #### L 500.2500 ####[facility] [address] [place], [address] Chloride [Moles/Vol] 102 mmol/L Normal 98-108 [facility] Comment on above: Performed By: #### L 500.2500 ####[facility] [address] [place], [address] CO2 [Moles/Vol] 21.9 mmol/L Normal 21.0-32.0 [facility] Comment on above: Performed By: #### L 500.2500 ####[facility] [address] [place], [address] Creatinine [Mass/Vol] 1.84 mg/dL High 0.70-1.20 [facility] Comment on above: Performed By: #### L 500.2500 ####[facility] [address] [place], [address] ECRCL 34.33 ml/min Low 50-250 [facility] Comment on above: Performed By: #### L 500.2500 ####[facility] [address] [place], [address] GAP 11 Normal 5-15 [facility] Comment on above: Performed By: #### L 500.2500 ####[facility] [address] [place], [address] GFR/1.73 sq M.predicted among non-blacks MDRD (S/P/Bld) [Vol rate/Area] 40 mL/min/{1.73_m2} Low >60 [facility] Comment on above: Result Comment: mL/m in/1.73m2 CKD-EPI Creatinine Equation (2020) Performed By: #### L 500.2500 ####[facility] [address] [place], [address] Glucose [Mass/Vol] 201 mg/dL High 70-99 [facility] Comment on above: Performed By: #### L 500.2500 ####[facility] [address] [place], [address] Potassium [Moles/Vol] 4.3 mmol/L Normal 3.3-5.1 [facility] Comment on above: Performed By: #### L 500.2500 ####[facility] [address] [place], [address] Sodium [Moles/Vol] 134 mmol/L Normal 133-145 [facility] Comment on above: Performed By: #### L 500.2500 ####[facility] [address] [place], [address] Urea nitrogen [Mass/Vol] 39 mg/dL High 4-19 [facility] Comment on above: Performed By: #### L 500.2500 ####[facility] [address] [place], [address] Bedside Glucoseon 11-28-2024 FINGERSTICK GLU 253 mg/dL High 74-106 [facility] Comment on above: Result Comment: ORLY GEMENT OF PATIENT CARE PER NURSING PROTOCOL Performed By: #### L 501.080 ####[facility] [address] [place], [address] FINGERSTICK GLU 208 mg/dL High 74-106 [facility] Comment on above: Result Comment: ORLY GEMENT OF PATIENT CARE PER NURSING PROTOCOL Performed By: #### L 501.080 ####[facility] [address] [place], [address] Calcium [Mass/Vol]Ordered By : Tahira Richards on 11-28-2024 Serum or plasma calcium measurement (mass/volume) 8.8 mg/dL 7.6-11.0 [facility] Carbon dioxide, total [Moles /volume] in Central venous bloodOrdered By: Tahira Richards on 11-28-2024 CO2 [Moles/Vol] 21.9 mmol/L 21.0-32.0 [facility] Carbon dioxide, total [Moles/volume] in Central venous blood 21.9 mmol/L 21.0-32.0 [facility] Chloride assayOrdered By: Elli Richards on 11-28-2024 Chloride [Moles/Vol] 102 mmol/L 98-108 [facility] Chloride assay 102 mmol/L 98-108 [facility] Creatinine [Mass/Vol]Ordered By: Tahira Richards on 11-28-2024 Serum creatinine measurement (mass/volume) 1.84 mg/dL High 0.70-1.20 [facility] Estimation of creatinine pedro luis aranceOrdered By: Tahira Richards on 11-28-2024 Estimation of creatinine clearance 34.33 ml/min Low 50-250 [facility] GFR/1.73 sq M.predicted ivette g non-blacks MDRD (S/P/Bld) [Vol rate/Area]Ordered By: Tahira Richards on 11-28-2024 Glomerular filtration rate (GFR) estimation/1.73 sq m using serum, plasma, or whole b 40 Low >60 [facility] Glomerular filtration rate ( GFR) estimation/1.73 sq m using serum, plasma, or whole bOrdered By: Tahira Richards on 11-28-2024 GFR/1.73 sq M.predicted among non-blacks MDRD (S/P/Bld) [Vol rate/Area] 40 mL/min/{1.73_m2} Low >60 [facility] Comment on above: mL/min/1.73m2 CKD-EP I Creatinine Equation (2020) Glucose [Mass/Vol]Ordered By : Tahira Richards on 11-28-2024 Serum glucose measurement (mass/volume) 201 mg/dL High 70-99 [facility] Glucose measurement at bedsi deOrdered By: Miguel Angel Montez on 11-28-2024 Glucose [Mass/Vol] 253 mg/dL High 74-106 [facility] Comment on above: MANAGEMENT OF PATIEN T CARE PER NURSING PROTOCOL Glucose measurement at bedside 253 mg/dL High 74-106 [facility] Potassium (Unsp spec) [Mass/ Vol]Ordered By: Tahira Richards on 11-28-2024 Potassium measurement (mass/volume) 4.3 mmol/L 3.3-5.1 [facility] Potassium measurement (mass/ volume)Ordered By: Tahira Richards on 11-28-2024 Potassium (Unsp spec) [Mass/Vol] 4.3 mmol/L 3.3-5.1 [facility] Serum creatinine measurement (mass/volume)Ordered By: Tahira Richards on 11-28-2024 Creatinine [Mass/Vol] 1.84 mg/dL High 0.70-1.20 [facility] Serum glucose measurement (m ass/volume)Ordered By: Tahira Richards on 11-28-2024 Glucose [Mass/Vol] 201 mg/dL High 70-99 [facility] Serum or plasma calcium isael urement (mass/volume)Ordered By: Tahira Richards on 11-28-2024 Calcium [Mass/Vol] 8.8 mg/dL 7.6-11.0 [facility] Serum or plasma urea nitroge n measurement (mass/volume)Ordered By: Tahira Richards on 11-28-2024 Urea nitrogen [Mass/Vol] 39 mg/dL High 11-23 [facility] Sodium levelOrdered By: Diogo Richards on 11-28-2024 Sodium [Moles/Vol] 134 mmol/L 133-145 [facility] Sodium level 134 mmol/L 133-145 [facility] Urea nitrogen [Mass/Vol]Orde red By: Tahira Richards on 11-28-2024 Serum or plasma urea nitrogen measurement (mass/volume) 39 mg/dL High 11-23 [facility] Basic Metabolic Profile (BMP )on 11-27-2024 BUN/CRE 28.8 RATIO High 10 [facility] Comment on above: Performed By: #### L 500.2500 ####[facility] [address] [place], [place], [address] Calcium [Mass/Vol] 8.5 mg/dL Normal 7.6-11.0 [facility] Comment on above: Performed By: #### L 500.2500 ####[facility] [address] [place], [address] Chloride [Moles/Vol] 103 mmol/L Normal 98-108 [facility] Comment on above: Performed By: #### L 500.2500 ####[facility] [address] [place], [address] CO2 [Moles/Vol] 24.6 mmol/L Normal 21.0-32.0 [facility] Comment on above: Performed By: #### L 500.2500 ####[facility] [address] [place], [address] Creatinine [Mass/Vol] 1.26 mg/dL High 0.70-1.20 [facility] Comment on above: Performed By: #### L 500.2500 ####[facility] [address] [place], [address] ECRCL 50.05 ml/min Normal 50-250 [facility] Comment on above: Performed By: #### L 500.2500 ####[facility] [address] [place], [address] GAP 10 Normal 5-15 [facility] Comment on above: Performed By: #### L 500.2500 ####[facility] [address] [place], [address] GFR/1.73 sq M.predicted among non-blacks MDRD (S/P/Bld) [Vol rate/Area] 63 mL/min/{1.73_m2} Normal >60 [facility] Comment on above: Result Comment: mL/m in/1.73m2 CKD-EPI Creatinine Equation (2020) Performed By: #### L 500.2500 ####[facility] [address] [place], [address] Glucose [Mass/Vol] 190 mg/dL High 70-99 [facility] Comment on above: Performed By: #### L 500.2500 ####[facility] [address] [place], [address] Potassium [Moles/Vol] 3.9 mmol/L Normal 3.3-5.1 [facility] Comment on above: Result Comment: Hemo lysis present, Results??could be affected.?? Performed By: #### L 500.2500 ####[facility] [address] [place], [address] Sodium [Moles/Vol] 138 mmol/L Normal 133-145 [facility] Comment on above: Performed By: #### L 500.2500 ####[facility] [address] [place], [address] Urea nitrogen [Mass/Vol] 36 mg/dL High 4-19 [facility] Comment on above: Performed By: #### L 500.2500 ####[facility] [address] [place], [address] Bedside Glucoseon 11-27-2024 FINGERSTICK GLU 365 mg/dL High 74-106 [facility] Comment on above: Result Comment: ORLY GEMENT OF PATIENT CARE PER NURSING PROTOCOL Performed By: #### L 501.080 ####[facility] [address] [place], [address] FINGERSTICK GLU 312 mg/dL High 74-106 [facility] Comment on above: Result Comment: ORLY GEMENT OF PATIENT CARE PER NURSING PROTOCOL Performed By: #### L 501.080 ####[facility] [address] [place], [address] FINGERSTICK GLU 203 mg/dL High 74-106 [facility] Comment on above: Result Comment: ORLY GEMENT OF PATIENT CARE PER NURSING PROTOCOL Performed By: #### L 501.080 ####[facility] [address] [place], [address] FINGERSTICK GLU 195 mg/dL High 74-106 [facility] Comment on above: Result Comment: ORLY GEMENT OF PATIENT CARE PER NURSING PROTOCOL Performed By: #### L 501.080 ####[facility] [address] [place], [address] FINGERSTICK GLU 194 mg/dL High 74-106 [facility] Comment on above: Result Comment: ORLY GEMENT OF PATIENT CARE PER NURSING PROTOCOL Performed By: #### L 501.080 ####[facility] [address] [place], [address] Urine Cultureon 11-27-2024 [facility] Urine Culture Urine Culture Presumptive C albicans [place] Count 1000-10,000 Normal [facility] Comment on above: Performed By: #### L 400.0001, M100.2200 ####[facility] [address] [place], [address] Basic Metabolic Profile (BMP )on 11-26-2024 BUN/CRE 37.7 RATIO High 10-20 [facility] Comment on above: Performed By: #### L 500.2500 ####[facility] [address] [place], [address] Calcium [Mass/Vol] 8.3 mg/dL Normal 7.6-11.0 [facility] Comment on above: Performed By: #### L 500.2500 ####[facility] [address] [place], [address] Chloride [Moles/Vol] 102 mmol/L Normal 98-108 [facility] Comment on above: Performed By: #### L 500.2500 ####[facility] [address] [place], [address] CO2 [Moles/Vol] 23.8 mmol/L Normal 21.0-32.0 [facility] Comment on above: Performed By: #### L 500.2500 ####[facility] [address] [place], [address] Creatinine [Mass/Vol] 1.60 mg/dL High 0.70-1.20 [facility] Comment on above: Performed By: #### L 500.2500 ####[facility] [address] [place], [address] ECRCL 38.53 ml/min Low 50-250 [facility] Comment on above: Performed By: #### L 500.2500 ####[facility] [address] [place], [address] GAP 12 Normal 5-15 [facility] Comment on above: Performed By: #### L 500.2500 ####[facility] [address] [place], [address] GFR/1.73 sq M.predicted among non-blacks MDRD (S/P/Bld) [Vol rate/Area] 47 mL/min/{1.73_m2} Low >60 [facility] Comment on above: Result Comment: mL/m in/1.73m2 CKD-EPI Creatinine Equation (2020) Performed By: #### L 500.2500 ####[facility] [address] [place], [address] Glucose [Mass/Vol] 118 mg/dL High 70-99 [facility] Comment on above: Performed By: #### L 500.2500 ####[facility] [address] [place], [address] Potassium [Moles/Vol] 3.0 mmol/L Low 3.3-5.1 [facility] Comment on above: Performed By: #### L 500.2500 ####[facility] [address] [place], [address] Sodium [Moles/Vol] 138 mmol/L Normal 133-145 [facility] Comment on above: Performed By: #### L 500.2500 ####[facility] [address] [place], [address] Urea nitrogen [Mass/Vol] 60 mg/dL High 4-19 [facility] Comment on above: Performed By: #### L 500.2500 ####[facility] [address] [place], [address] Bedside Glucoseon 11-26-2024 FINGERSTICK GLU 173 mg/dL High 74-106 [facility] Comment on above: Result Comment: ORLY GEMENT OF PATIENT CARE PER NURSING PROTOCOL Performed By: #### L 501.080 ####[facility] [address] [place], [address] FINGERSTICK GLU 55 mg/dL Low 74-106 [facility] Comment on above: Result Comment: ORLY GEMENT OF PATIENT CARE PER NURSING PROTOCOL Performed By: #### L 501.080 ####[facility] [address] [place], [address] FINGERSTICK GLU 59 mg/dL Low 74-106 [facility] Comment on above: Result Comment: ORLY GEMENT OF PATIENT CARE PER NURSING PROTOCOL Performed By: #### L 501.080 ####[facility] [address] [place], [address] FINGERSTICK GLU 108 mg/dL High 74-106 [facility] Comment on above: Result Comment: ORLY GEMENT OF PATIENT CARE PER NURSING PROTOCOL Performed By: #### L 501.080 ####[facility] [address] [place], [address] FINGERSTICK GLU 133 mg/dL High 74-106 [facility] Comment on above: Result Comment: ORLY GEMENT OF PATIENT CARE PER NURSING PROTOCOL Performed By: #### L 501.080 ####[facility] [address] [place], [address] Echo, Limited Studyon 2024 Echo, Limited Study Normal [facility] Limited echocardiogram repor tOrdered By: Pk Shin on 11-26-2024 Study report [facility] Work Phone: Anion gap [Moles/Vol]Ordered By: Claudio eDvlin on 11-25-2024 Anion gap in Serum or Plasma 15 5-15 [facility] BUN/creatinine ratioOrdered By: Claudio Devlin on 11-25-2024 BUN/creatinine ratio 39.3 RATIO High 10-20 [facility] Basic Metabolic Profile (BMP )on 11-25-2024 BUN/CRE 40.0 RATIO High 10-20 [facility] Comment on above: Performed By: #### L 100.0500, L500.2500, L501.2450 ####[facility] [address] [place], [address] Calcium [Mass/Vol] 8.3 mg/dL Normal 7.6-11.0 [facility] Comment on above: Performed By: #### L 100.0500, L500.2500, L501.2450 ####[facility] [address] [place], [address] Chloride [Moles/Vol] 99 mmol/L Normal 98-108 [facility] Comment on above: Performed By: #### L 100.0500, L500.2500, L501.2450 ####[facility] [address] [place], [address] CO2 [Moles/Vol] 22.4 mmol/L Normal 21.0-32.0 [facility] Comment on above: Performed By: #### L 100.0500, L500.2500, L501.2450 ####[facility] [address] [place], [address] Creatinine [Mass/Vol] 2.60 mg/dL High 0.70-1.20 [facility] Comment on above: Performed By: #### L 100.0500, L500.2500, L501.2450 ####[facility] [address] [place], [address] ECRCL 23.75 ml/min Low 50-250 [facility] Comment on above: Performed By: #### L 100.0500, L500.2500, L501.2450 ####[facility] [address] [place], [address] GAP 14 Normal 5-15 [facility] Comment on above: Performed By: #### L 100.0500, L500.2500, L501.2450 ####[facility] [address] [place], [address] GFR/1.73 sq M.predicted among non-blacks MDRD (S/P/Bld) [Vol rate/Area] 26 mL/min/{1.73_m2} Low >60 [facility] Comment on above: Result Comment: mL/m in/1.73m2 CKD-EPI Creatinine Equation (2020) Performed By: #### L 100.0500, L500.2500, L501.2450 ####[facility] [address] [place], [address] Glucose [Mass/Vol] 102 mg/dL High 70-99 [facility] Comment on above: Performed By: #### L 100.0500, L500.2500, L501.2450 ####[facility] [address] [place], [address] Potassium [Moles/Vol] 2.8 mmol/L Low 3.3-5.1 [facility] Comment on above: Performed By: #### L 100.0500, L500.2500, L501.2450 ####[facility] [address] [place], [address] Sodium [Moles/Vol] 136 mmol/L Normal 133-145 [facility] Comment on above: Performed By: #### L 100.0500, L500.2500, L501.2450 ####[facility] [address] [place], [address] Urea nitrogen [Mass/Vol] 104 mg/dL Invalid Interpretation Code 4-19 [facility] Comment on above: Result Comment: Crit ical Result(s) Called to Annika MARKHAM ([facility]): Stoner:??Results read back by same. Performed By: #### L 100.0500, L500.2500, L501.2450 ####[facility] [address] [place], [address] BUN/CRE 39.3 RATIO High 10-20 [facility] Comment on above: Performed By: #### L 100.0500, L500.2500 ####[facility] [address] [place], [address] Calcium [Mass/Vol] 8.2 mg/dL Normal 7.6-11.0 [facility] Comment on above: Performed By: #### L 100.0500, L500.2500 ####[facility] [address] [place], [address] Chloride [Moles/Vol] 96 mmol/L Low 98-108 [facility] Comment on above: Performed By: #### L 100.0500, L500.2500 ####[facility] [address] [place], [address] CO2 [Moles/Vol] 22.8 mmol/L Normal 21.0-32.0 [facility] Comment on above: Performed By: #### L 100.0500, L500.2500 ####[facility] [address] [place], [address] Creatinine [Mass/Vol] 2.95 mg/dL High 0.70-1.20 [facility] Comment on above: Performed By: #### L 100.0500, L500.2500 ####[facility] [address] [place], [address] ECRCL 20.93 ml/min Low 50-250 [facility] Comment on above: Performed By: #### L 100.0500, L500.2500 ####[facility] [address] [place], [address] GAP 15 Normal 5-15 [facility] Comment on above: Performed By: #### L 100.0500, L500.2500 ####[facility] [address] [place], [address] GFR/1.73 sq M.predicted among non-blacks MDRD (S/P/Bld) [Vol rate/Area] 23 mL/min/{1.73_m2} Low >60 [facility] Comment on above: Result Comment: mL/m in/1.73m2 CKD-EPI Creatinine Equation (2020) Performed By: #### L 100.0500, L500.2500 ####[facility] [address] [place], [address] Glucose [Mass/Vol] 112 mg/dL High 70-99 [facility] Comment on above: Performed By: #### L 100.0500, L500.2500 ####[facility] [address] [place], [address] Potassium [Moles/Vol] 3.2 mmol/L Low 3.3-5.1 [facility] Comment on above: Performed By: #### L 100.0500, L500.2500 ####[facility] [address] [place], [address] Sodium [Moles/Vol] 134 mmol/L Normal 133-145 [facility] Comment on above: Performed By: #### L 100.0500, L500.2500 ####[facility] [address] [place], [address] Urea nitrogen [Mass/Vol] 116 mg/dL Invalid Interpretation Code 4-19 [facility] Comment on above: Result Comment: Crit ical Result(s) Called at: 0604 by: NILSON PATEL??Results read back by same. Performed By: #### L 100.0500, L500.2500 ####[facility] [address] [place], [address] Bedside Glucoseon 11-25-2024 FINGERSTICK GLU 122 mg/dL High 74-106 [facility] Comment on above: Result Comment: ORLY GEMENT OF PATIENT CARE PER NURSING PROTOCOL Performed By: #### L 501.080 ####[facility] [address] [place], [address] FINGERSTICK GLU 215 mg/dL High 74-106 [facility] Comment on above: Result Comment: ORLY GEMENT OF PATIENT CARE PER NURSING PROTOCOL Performed By: #### L 501.080 ####[facility] [address] [place], [address] FINGERSTICK GLU 118 mg/dL High 74-106 [facility] Comment on above: Result Comment: ORLY GEMENT OF PATIENT CARE PER NURSING PROTOCOL Performed By: #### L 501.080 ####[facility] [address] [place], [address] FINGERSTICK GLU 149 mg/dL High 74-106 [facility] Comment on above: Result Comment: ORLY GEMENT OF PATIENT CARE PER NURSING PROTOCOL Performed By: #### L 501.080 ####[facility] [address] [place], [address] FINGERSTICK GLU 87 mg/dL Normal 74-106 [facility] Comment on above: Result Comment: ORLY GEMENT OF PATIENT CARE PER NURSING PROTOCOL Performed By: #### L 501.080 ####[facility] [address] [place], [address] FINGERSTICK GLU 147 mg/dL High 74-106 [facility] Comment on above: Result Comment: ORLY GEMENT OF PATIENT CARE PER NURSING PROTOCOL Performed By: #### L 501.080 ####[facility] [address] [place], [address] CBC-Complete Blood Cnt No Di ffon 11-25-2024 Erythrocyte distribution width (RBC) [Ratio] 13.7 % Normal 11.6-14.6 [facility] Comment on above: Performed By: #### L 100.0500, L500.2500, L501.2450 ####[facility] [address] [place], [address] Hematocrit (Bld) [Volume fraction] 29.0 % Low 40-54 [facility] Comment on above: Performed By: #### L 100.0500, L500.2500, L501.2450 ####[facility] [address] [place], [address] Hemoglobin (Bld) [Mass/Vol] 10.4 g/dL Low 13.0-16.5 [facility] Comment on above: Performed By: #### L 100.0500, L500.2500, L501.2450 ####[facility] [address] [place], [address] MCH (RBC) [Entitic mass] 29.2 pg Normal 27.0-32.0 [facility] Comment on above: Performed By: #### L 100.0500, L500.2500, L501.2450 ####[facility] [address] [place], [address] MCHC (RBC) [Mass/Vol] 35.9 g/dL Normal 32-36 [facility] Comment on above: Performed By: #### L 100.0500, L500.2500, L501.2450 ####[facility] [address] [place], [address] MCV (RBC) [Entitic vol] 81.5 fL Normal 80-94 [facility] Comment on above: Performed By: #### L 100.0500, L500.2500, L501.2450 ####[facility] [address] [place], [address] Platelet mean volume (Bld) [Entitic vol] 9.8 fL Normal 6.2-12.0 [facility] Comment on above: Performed By: #### L 100.0500, L500.2500, L501.2450 ####[facility] [address] [place], [address] Platelets (Bld) [#/Vol] 168 10*3/uL Normal 150-450 [facility] Comment on above: Performed By: #### L 100.0500, L500.2500, L501.2450 ####[facility] [address] [place], [address] RBC (Bld) [#/Vol] 3.56 10*6/uL Low 4.6-6.2 [facility] Comment on above: Performed By: #### L 100.0500, L500.2500, L501.2450 ####[facility] [address] [place], [address] RDW SD 40.8 fl Normal 35.1-43.9 [facility] Comment on above: Performed By: #### L 100.0500, L500.2500, L501.2450 ####[facility] [address] [place], [address] WBC (Bld) [#/Vol] 7.2 10*3/uL Normal 4.4-11.0 [facility] Comment on above: Performed By: #### L 100.0500, L500.2500, L501.2450 ####[facility] [address] [place], [address] Erythrocyte distribution width (RBC) [Ratio] 13.8 % Normal 11.6-14.6 [facility] Comment on above: Performed By: #### L 100.0500, L500.2500 ####[facility] [address] [place], [address] Hematocrit (Bld) [Volume fraction] 28.7 % Low 40-54 [facility] Comment on above: Performed By: #### L 100.0500, L500.2500 ####[facility] [address] [place], [address] Hemoglobin (Bld) [Mass/Vol] 9.9 g/dL Low 13.0-16.5 [facility] Comment on above: Performed By: #### L 100.0500, L500.2500 ####[facility] [address] [place], [address] MCH (RBC) [Entitic mass] 28.7 pg Normal 27.0-32.0 [facility] Comment on above: Performed By: #### L 100.0500, L500.2500 ####[facility] [address] [place], [address] MCHC (RBC) [Mass/Vol] 34.5 g/dL Normal 32-36 [facility] Comment on above: Performed By: #### L 100.0500, L500.2500 ####[facility] [address] [place], [address] MCV (RBC) [Entitic vol] 83.2 fL Normal 80-94 [facility] Comment on above: Performed By: #### L 100.0500, L500.2500 ####[facility] [address] [place], [address] Platelet mean volume (Bld) [Entitic vol] 10.8 fL Normal 6.2-12.0 [facility] Comment on above: Performed By: #### L 100.0500, L500.2500 ####[facility] [address] [place], [address] Platelets (Bld) [#/Vol] 173 10*3/uL Normal 150-450 [facility] Comment on above: Performed By: #### L 100.0500, L500.2500 ####[facility] [address] [place], [address] RBC (Bld) [#/Vol] 3.45 10*6/uL Low 4.6-6.2 [facility] Comment on above: Performed By: #### L 100.0500, L500.2500 ####[facility] [address] [place], [address] RDW SD 41.4 fl Normal 35.1-43.9 [facility] Comment on above: Performed By: #### L 100.0500, L500.2500 ####[facility] [address] [place], [address] WBC (Bld) [#/Vol] 7.2 10*3/uL Normal 4.4-11.0 [facility] Comment on above: Performed By: #### L 100.0500, L500.2500 ####[facility] [address] [place], [address] Calcium [Mass/Vol]Ordered By : Claudio Devlin on 11-25-2024 Serum or plasma calcium measurement (mass/volume) 8.2 mg/dL 7.6-11.0 [facility] Carbon dioxide, total [Moles /volume] in Central venous bloodOrdered By: Claudio Devlin on 11-25-2024 Carbon dioxide, total [Moles/volume] in Central venous blood 22.8 mmol/L 21.0-32.0 [facility] Chloride assayOrdered By: Guzman Devlin on 11-25-2024 Chloride assay 96 mmol/L Low 98-108 [facility] Consultation - Nephrologyon 11-25-2024 Consultation - Nephrology Normal [facility] Creatinine [Mass/Vol]Ordered By: Claudio Devlin on 11-25-2024 Serum creatinine measurement (mass/volume) 2.95 mg/dL High 0.70-1.20 [facility] Creatinine, Urineon 11-26-19 25 URINE CREAT 42.10 mg/dL Normal 39.00-259.0 0 [facility] Comment on above: Performed By: #### L 502.0300, L501.5500 ####[facility] [address] [place], [place], [address] ENTERIC PATHOGEN PANEL STOOL on 11-25-2024 EP PANEL Normal [facility] Comment on above: Performed By: #### M 100.0605, M100.637, M100.6796 ####[facility] [address] [place], [place], [address] Erythrocyte distribution wid th (RBC) [Ratio]Ordered By: Claudio Devlin on 11-25-2024 Erythrocyte distribution width ratio 13.7 % 11.6-14.6 [facility] Erythrocyte distribution width standard deviation 40.8 fl 35.1-43.9 [facility] Erythrocyte distribution wid th ratioOrdered By: Claudio Devlin on 11-25-2024 Erythrocyte distribution width (RBC) [Ratio] 13.7 % 11.6-14.6 [facility] Erythrocyte distribution wid th standard deviationOrdered By: Claudio Devlin on 11-25-2024 Erythrocyte distribution width (RBC) [Ratio] 40.8 fl 35.1-43.9 [facility] Estimation of creatinine pedro luis aranceOrdered By: Claudio Devlin on 11-25-2024 Estimation of creatinine clearance 20.93 ml/min Low 50-250 [facility] GFR/1.73 sq M.predicted ivette g non-blacks MDRD (S/P/Bld) [Vol rate/Area]Ordered By: Claudio Devlin on 11-25-2024 Glomerular filtration rate (GFR) estimation/1.73 sq m using serum, plasma, or whole b 23 Low >60 [facility] Glucose [Mass/Vol]Ordered By : Claudio Devlin on 11-25-2024 Serum glucose measurement (mass/volume) 112 mg/dL High 70-99 [facility] Glucose measurement at bedsi deOrdered By: Claudio Devlin on 11-25-2024 Glucose measurement at bedside 87 mg/dL 74-106 [facility] Hematocrit Auto (Bld) [Volum e fraction]Ordered By: Claudio Devlin on 11-25-2024 Hematocrit (Bld) [Volume fraction] 29.0 % Low 40-54 [facility] Automated blood hematocrit (percentage) 29.0 % Low 40-54 [facility] Hemoglobin measurementOrdere d By: Claudio Devlin on 11-25-2024 Hemoglobin (Bld) [Mass/Vol] 10.4 g/dL Low 13.0-16.5 [facility] Hemoglobin measurement 10.4 g/dL Low 13.0-16.5 [facility] Lipaseon 11-25-2024 Lipase [Catalytic activity/Vol] 1331 U/L High [address] Comment on above: Result Comment: Ousmane clemente note:LIPASE revised reference range effective 22.New Lipase methodology. Expected to produce lower valuesthan the previous assay method.NEW Reference Range: 13 - 75 U/L Performed By: #### L 100.0500, L500.2500, L501.2450 ####[facility] [address] [place], [place], [id number] Lipase measurementOrdered By : Claudio Devlin on 11-25-2024 Lipase [Catalytic activity/Vol] 1331 U/L High [address] Comment on above: Please note:LIPASE r evised reference range effective 22. New Lipase methodology. Expected to produce lower values than the previous assay method. NEW Reference Range: 13 - 75 U/L Lipase measurement 1331 U/L High [address] [place] [address] MCV (RBC) [Entitic vol]Order ed By: Claudio Devlin on 11-25-2024 MCV (mean corpuscular volume) determination 81.5 fL 80-94 [facility] MCV (mean corpuscular volume ) determinationOrdered By: Claudio Devlin on 11-25-2024 MCV (RBC) [Entitic vol] 81.5 fL 80-94 [facility] Mean corpuscular hemoglobin (MCH) determinationOrdered By: Claudio Devlin on 11-25-2024 MCH (RBC) [Entitic mass] 29.2 pg 27.0-32.0 [facility] Mean corpuscular hemoglobin (MCH) determination 29.2 pg 27.0-32.0 [facility] Mean corpuscular hemoglobin concentration (MCHC) determinationOrdered By: Claudio Devlin on 11-25-2024 MCHC (RBC) [Mass/Vol] 35.9 g/dL 32-36 [facility] Mean corpuscular hemoglobin concentration (MCHC) determination 35.9 g/dL -36 [facility] Mean platelet volume determi nationOrdered By: Claudio Devlin on 11-25-2024 Platelet mean volume (Bld) [Entitic vol] 9.8 fL 6.2-12.0 [facility] Mean platelet volume determination 9.8 fl 6.2-12.0 [facility] Platelet countOrdered By: Guzman Devlin on 11-25-2024 Platelets (Bld) [#/Vol] 168 10*3/uL 150-450 [facility] Platelet count 168 K/mm3 150-450 [facility] Potassium (Unsp spec) [Mass/ Vol]Ordered By: Claudio Devlin on 11-25-2024 Potassium measurement (mass/volume) 3.2 mmol/L Low 3.3-5.1 [facility] RBC Auto (Bld) [#/Vol]Ordere d By: Claudio Devlin on 11-25-2024 RBC (Bld) [#/Vol] 3.56 10*6/uL Low 4.6-6.2 [facility] Automated blood erythrocyte count 3.56 M/mm3 Low 4.6-6.2 [facility] Sodium levelOrdered By: Oniel Devlin on 11-25-2024 Sodium level 134 mmol/L 133-145 [facility] Urea nitrogen [Mass/Vol]Orde red By: Claudio Devlin on 11-25-2024 Serum or plasma urea nitrogen measurement (mass/volume) 116 mg/dL High 4-19 [facility] Urine Sodiumon 11-25-2024 Sodium (U) [Moles/Vol] 38 mmol/L Normal Not Establ. [facility] Comment on above: Performed By: #### L 502.0300, L501.5500 ####[facility] [address] [place], [address] White blood cell (WBC) count Ordered By: Claudio Devlin on 11-25-2024 WBC (Bld) [#/Vol] 7.2 10*3/uL 4.4-11.0 [facility] White blood cell (WBC) count 7.2 K/mm3 4.4-11.0 [facility] ALP [Catalytic activity/Vol] Ordered By: Dannielle Boyce on 11-24-2024 Serum or plasma alkaline phosphatase measurement 116 U/L 40-129 [facility] ALT [Catalytic activity/Vol] Ordered By: Dannielle Boyce on 11-24-2024 Serum or plasma alanine aminotransferase (ALT) measurement 32 U/L <47 [facility] Abdomen/Pelvis without Conto n 11-24-2024 Abdomen/Pelvis without Cont Normal [facility] Absolute lymphocyte countOrd ered By: Dannielle Boyce on 11-24-2024 Lymphocytes Auto (Unsp spec) [#/Vol] 0.81 10*3/uL Low 0.83-4.51 [facility] Absolute neutrophil countOrd ered By: Dannielle Boyce on 11-24-2024 Neutrophils (Bld) [#/Vol] 7.1 10*3/uL 2.0-7.7 [facility] Absolute neutrophil count 7.1 X10^3/uL 2.0-7.7 [facility] Albumin [Mass/Vol]Ordered By : Dannielle Boyce on 11-24-2024 Serum or plasma albumin measurement (mass/volume) 4.2 g/dL 3.4-4.8 [facility] Albumin/Globulin [Mass ratio ]Ordered By: Dannielle Boyce on 11-24-2024 Serum or plasma albumin/globulin mass ratio 1.2 RATIO 0.9-2.4 [facility] Anion gap [Moles/Vol]Ordered By: Dannielle Boyce on 11-24-2024 Anion gap in Serum or Plasma 24 High 5-15 [facility] Automated lymphocyte count a s percentage of total leukocytesOrdered By: Dannielle Boyce on 11-24-2024 Lymphocytes/100 WBC Auto (Unsp spec) 9.1 % Low 19-41 [facility] BUN/creatinine ratioOrdered By: Dannielle Boyce on 11-24-2024 BUN/creatinine ratio 32.4 RATIO High 10-20 [facility] Basophil percentageOrdered B y: Dannielle Boyce on 11-24-2024 Basophils/100 WBC (Bld) 0.1 % 0-1 [facility] Basophil percentage 0.1 % 0-1 [facility] Bilirubin Test strip Ql (U)O rdered By: Claudio Devlin on 11-24-2024 Bilirubin Ql (U) Negative Negative [facility] Bilirubin, totalOrdered By: Dannielle Boyce on 11-24-2024 Bilirubin [Mass/Vol] 0.31 mg/dL 0.00-1.30 [facility] Bilirubin, total 0.31 mg/dL 0.00-1.30 [facility] CBC W/Diff, Automatedon 11-06 Absolute Lymph 0.81 X10 3/uL Low 0.83-4.51 [facility] Comment on above: Performed By: #### L 100.0100, L500.4050, L501.2450 ####[facility] [address] [place], [address] Absolute Neut 7.1 X10 3/uL Normal 2.0-7.7 [facility] Comment on above: Performed By: #### L 100.0100, L500.4050, L501.2450 ####[facility] [address] [place], [address] Basophils/100 WBC (Bld) 0.1 % Normal 0-1 [facility] Comment on above: Performed By: #### L 100.0100, L500.4050, L501.2450 ####[facility] [address] [place], [address] Eosinophils/100 WBC (Bld) 0.6 % Normal 0-5 [facility] Comment on above: Performed By: #### L 100.0100, L500.4050, L501.2450 ####[facility] [address] [place], [address] Erythrocyte distribution width (RBC) [Ratio] 13.8 % Normal 11.6-14.6 [facility] Comment on above: Performed By: #### L 100.0100, L500.4050, L501.2450 ####[facility] [address] [place], [address] Hematocrit (Bld) [Volume fraction] 35.7 % Low 40-54 [facility] Comment on above: Performed By: #### L 100.0100, L500.4050, L501.2450 ####[facility] [address] [place], [address] Hemoglobin (Bld) [Mass/Vol] 12.8 g/dL Low 13.0-16.5 [facility] Comment on above: Performed By: #### L 100.0100, L500.4050, L501.2450 ####[facility] [address] [place], [address] IG% 0.500 Normal 0.0-0.9 [facility] Comment on above: Result Comment: IG% - Immature Granulocytes (promyelocytes, myelocytes andmetamyelocytes) > 1% indicates that a LEFT SHIFT is Present. Performed By: #### L 100.0100, L500.4050, L501.2450 ####[facility] [address] [place], [address] Lymphocytes/100 WBC (Bld) 9.1 % Low 19-41 [facility] Comment on above: Performed By: #### L 100.0100, L500.4050, L501.2450 ####[facility] [address] [place], [address] MCH (RBC) [Entitic mass] 29.1 pg Normal 27.0-32.0 [facility] Comment on above: Performed By: #### L 100.0100, L500.4050, L501.2450 ####[facility] [address] [place], [address] MCHC (RBC) [Mass/Vol] 35.9 g/dL Normal 32-36 [facility] Comment on above: Performed By: #### L 100.0100, L500.4050, L501.2450 ####[facility] [address] [place], [address] MCV (RBC) [Entitic vol] 81.1 fL Normal 80-94 [facility] Comment on above: Performed By: #### L 100.0100, L500.4050, L501.2450 ####[facility] [address] [place], [address] Monocytes/100 WBC (Bld) 10.2 % High 0-10 [facility] Comment on above: Performed By: #### L 100.0100, L500.4050, L501.2450 ####[facility] [address] [place], [address] Neutrophils/100 WBC (Bld) 79.5 % High 47-70 [facility] Comment on above: Performed By: #### L 100.0100, L500.4050, L501.2450 ####[facility] [address] [place], [address] Nucleated RBC (Bld) [#/Vol] 0 10*3/uL Normal 0-5 [facility] Comment on above: Performed By: #### L 100.0100, L500.4050, L501.2450 ####[facility] [address] [place], [address] Platelet mean volume (Bld) [Entitic vol] 10.5 fL Normal 6.2-12.0 [facility] Comment on above: Performed By: #### L 100.0100, L500.4050, L501.2450 ####[facility] [address] [place], [address] Platelets (Bld) [#/Vol] 225 10*3/uL Normal 150-450 [facility] Comment on above: Performed By: #### L 100.0100, L500.4050, L501.2450 ####[facility] [address] [place], [address] RBC (Bld) [#/Vol] 4.40 10*6/uL Low 4.6-6.2 [facility] Comment on above: Performed By: #### L 100.0100, L500.4050, L501.2450 ####[facility] [address] [place], [address] RDW SD 40.2 fl Normal 35.1-43.9 [facility] Comment on above: Performed By: #### L 100.0100, L500.4050, L501.2450 ####[facility] [address] [place], [address] WBC (Bld) [#/Vol] 8.9 10*3/uL Normal 4.4-11.0 [facility] Comment on above: Performed By: #### L 100.0100, L500.4050, L501.2450 ####[facility] [address] [place], [address] CDIFF (PCR)on 11-24-2024 CDIFF C diff DNA Spec Ql ROBIN+probe Reference Range: Negative Cepheid GeneXpert: polymerase chain reaction (PCR) 027 027 NAP1-B1 Presumptive Negative *for epidemiolologic???use C. Diff PCR Negative- No toxigenic C. Diff Detected Normal [facility] Comment on above: Performed By: #### M 100.0605, M100.637, M100.6796 ####[facility] [address] [place], [address] Calcium [Mass/Vol]Ordered By : Dannielle Boyce on 11-24-2024 Serum or plasma calcium measurement (mass/volume) 9.3 mg/dL 7.6-11.0 [facility] Carbon dioxide, total [Moles /volume] in Central venous bloodOrdered By: Dannielle Boyce on 11-24-2024 Carbon dioxide, total [Moles/volume] in Central venous blood 21.0 mmol/L 21.0-32.0 [facility] Chloride assayOrdered By: Yumiko Boyce on 11-24-2024 Chloride assay 82 mmol/L Low 98-108 [facility] Clarity (U)Ordered By: Emilee Devlin on 11-24-2024 Urine clarity Sl. Cloudy Clear [facility] Clostridium difficile detect ion by polymerase chain reactionOrdered By: Ross Crump on 11-24-2024 C. difficile DNA ROBIN+probe Ql (Unsp spec) [facility] Color (U)Ordered By: Raj Devlin on 11-24-2024 Urine color determination Yellow Yellow [facility] Comprehensive Metabolic Prof ilon 11-24-2024 Albumin [Mass/Vol] 4.2 g/dL Normal 3.4-4.8 [facility] Comment on above: Performed By: #### L 100.0100, L500.4050, L501.2450 ####[facility] [address] [place], [address] Albumin/Globulin [Mass ratio] 1.2 {ratio} Normal 0.9-2.4 [facility] Comment on above: Performed By: #### L 100.0100, L500.4050, L501.2450 ####[facility] [address] [place], [address] ALK PHOS 116 U/L Normal 40-129 [facility] Comment on above: Performed By: #### L 100.0100, L500.4050, L501.2450 ####[facility] [address] [place], [address] ALT [Catalytic activity/Vol] 32 U/L Normal <=46 [facility] Comment on above: Performed By: #### L 100.0100, L500.4050, L501.2450 ####[facility] [address] [place], [address] AST [Catalytic activity/Vol] 34 U/L Normal <=37 [facility] Comment on above: Performed By: #### L 100.0100, L500.4050, L501.2450 ####[facility] [address] [place], [address] Bilirubin [Mass/Vol] 0.31 mg/dL Normal 0.00-1.30 [facility] Comment on above: Performed By: #### L 100.0100, L500.4050, L501.2450 ####[facility] [address] [place], [address] BUN/CRE 32.4 RATIO High 10-20 [facility] Comment on above: Performed By: #### L 100.0100, L500.4050, L501.2450 ####[facility] [address] [place], [address] Calcium [Mass/Vol] 9.3 mg/dL Normal 7.6-11.0 [facility] Comment on above: Performed By: #### L 100.0100, L500.4050, L501.2450 ####[facility] [address] [place], [address] Chloride [Moles/Vol] 82 mmol/L Low 98-108 [facility] Comment on above: Performed By: #### L 100.0100, L500.4050, L501.2450 ####[facility] [address] [place], [address] CO2 [Moles/Vol] 21.0 mmol/L Normal 21.0-32.0 [facility] Comment on above: Performed By: #### L 100.0100, L500.4050, L501.2450 ####[facility] [address] [place], [address] Creatinine [Mass/Vol] 4.42 mg/dL High 0.70-1.20 [facility] Comment on above: Performed By: #### L 100.0100, L500.4050, L501.2450 ####[facility] [address] [place], [address] ECRCL 14.18 ml/min Low 50-250 [facility] Comment on above: Performed By: #### L 100.0100, L500.4050, L501.2450 ####[facility] [address] [place], [address] GAP 24 High 5-15 [facility] Comment on above: Performed By: #### L 100.0100, L500.4050, L501.2450 ####[facility] [address] [place], [address] GFR/1.73 sq M.predicted among non-blacks MDRD (S/P/Bld) [Vol rate/Area] 14 mL/min/{1.73_m2} Low >60 [facility] Comment on above: Result Comment: mL/m in/1.73m2 CKD-EPI Creatinine Equation (2020) Performed By: #### L 100.0100, L500.4050, L501.2450 ####[facility] [address] [place], [address] Globulin (S) [Mass/Vol] 3.5 g/dL Normal 2.2-4.2 [facility] Comment on above: Performed By: #### L 100.0100, L500.4050, L501.2450 ####[facility] [address] [place], [address] Glucose [Mass/Vol] 181 mg/dL High 70-99 [facility] Comment on above: Performed By: #### L 100.0100, L500.4050, L501.2450 ####[facility] [address] [place], [address] Potassium [Moles/Vol] 3.1 mmol/L Low 3.3-5.1 [facility] Comment on above: Performed By: #### L 100.0100, L500.4050, L501.2450 ####[facility] [address] [place], [address] Sodium [Moles/Vol] 128 mmol/L Low 133-145 [facility] Comment on above: Performed By: #### L 100.0100, L500.4050, L501.2450 ####[facility] [address] [place], [address] T PROT 7.7 g/dL Normal 5.9-8.4 [facility] Comment on above: Performed By: #### L 100.0100, L500.4050, L501.2450 ####[facility] [address] [place], [address] Urea nitrogen [Mass/Vol] 143 mg/dL Invalid Interpretation Code 11-23 [facility] Comment on above: Result Comment: Crit ical Result(s) Called LSPARR at: 2055 by:LYDIA??Results read back by same. Performed By: #### L 100.0100, L500.4050, L501.2450 ####[facility] [address] [place], [address] Creatinine (U) [Mass/Vol]Ord ered By: Claudio Devlin on 11-24-2024 Urine creatinine measurement (mass/volume) 42.10 mg/dL 39.00-259.0 0 [facility] Creatinine [Mass/Vol]Ordered By: Dannielle Boyce on 11-24-2024 Serum creatinine measurement (mass/volume) 4.42 mg/dL High 0.70-1.20 [facility] Emergency Department Summary on 11-24-2024 Emergency Department Summary Normal [facility] Eosinophil percentageOrdered By: Dannielle Boyce on 11-24-2024 Eosinophils/100 WBC (Bld) 0.6 % 0-5 [facility] Eosinophil percentage 0.6 % 0-5 [facility] Erythrocyte distribution wid th (RBC) [Ratio]Ordered By: Dannielle Boyce on 11-24-2024 Erythrocyte distribution width ratio 13.8 % 11.6-14.6 [facility] Erythrocyte distribution width standard deviation 40.2 fl 35.1-43.9 [facility] Estimation of creatinine pedro luis aranceOrdered By: Dannielle Boyce on 11-24-2024 Estimation of creatinine clearance 14.18 ml/min Low 50-250 [facility] GFR/1.73 sq M.predicted ivette g non-blacks MDRD (S/P/Bld) [Vol rate/Area]Ordered By: Dannielle Boyce on 11-24-2024 Glomerular filtration rate (GFR) estimation/1.73 sq m using serum, plasma, or whole b 14 Low >60 [facility] Glucose [Mass/Vol]Ordered By : Dannielle Boyce on 11-24-2024 Serum glucose measurement (mass/volume) 181 mg/dL High 70-99 [facility] H AND P Exam - Hospitaliston 11-24-2024 H&P Exam - Hospitalist Normal [facility] Hematocrit Auto (Bld) [Volum e fraction]Ordered By: Dannielle Boyce on 11-24-2024 Automated blood hematocrit (percentage) 35.7 % Low 40-54 [facility] Hemoglobin measurementOrdere d By: Dannielle Boyce on 11-24-2024 Hemoglobin measurement 12.8 g/dL Low 13.0-16.5 [facility] Hyaline casts LM.LPF (Urine sed) [#/Area]Ordered By: Claudio Devlin on 11-24-2024 Hyaline casts (Urine sed) [#/Area] 0 /[LPF] 0-5 [facility] Urine sediment hyaline cast count by microscopy (number/low power field) 0-5 SEEN /lpf 0-5 [facility] Immature granulocytes/100 WB C Auto (Bld)Ordered By: Dannielle Boyce on 11-24-2024 Immature granulocytes/100 WBC (Bld) 0.500 % 0.0-0.9 [facility] Comment on above: IG% - Immature Granu locytes (promyelocytes, myelocytes and metamyelocytes) > 1% indicates that a LEFT SHIFT is Present. Automated immature granulocyte percentage 0.500 % 0.0-0.9 [facility] Ketones Test strip Ql (U)Ord ered By: Claudio Devlin on 11-24-2024 Ketones Ql (U) Negative Negative [facility] Laboratory - Chemistry and C hemistry - challengeOrdered By: Dannielle Bocye on 11-24-2024 AST [Catalytic activity/Vol] 34 U/L <38 [facility] Leukocyte esterase Test stri p Ql (U)Ordered By: Claudio Devlin on 11-24-2024 Urine leukocyte esterase detection by dipstick 500 /ul High Negative [facility] Lipaseon 11-24-2024 Lipase [Catalytic activity/Vol] 1112 U/L High 13-75 [facility] Comment on above: Result Comment: Ousmane clemente note:LIPASE revised reference range effective 22.New Lipase methodology. Expected to produce lower valuesthan the previous assay method.NEW Reference Range: 13 - 75 U/L Performed By: #### L 100.0100, L500.4050, L501.2450 ####[facility] [address] [place], [address] Lipase measurementOrdered By : Dannielle Boyce on 11-24-2024 Lipase measurement 1112 U/L High 13-75 [facility] Lymphocytes Auto (Unsp spec) [#/Vol]Ordered By: Dannielle Boyce on 11-24-2024 Absolute lymphocyte count 0.81 X10^3/uL Low 0.83-4.51 [facility] Lymphocytes/100 WBC Auto (Un sp spec)Ordered By: Dannielle Boyce on 11-24-2024 Automated lymphocyte count as percentage of total leukocytes 9.1 % Low 19-41 [facility] MCV (RBC) [Entitic vol]Order ed By: Dannielle Boyce on 11-24-2024 MCV (mean corpuscular volume) determination 81.1 fL 80-94 [facility] Magnesiumon 11-24-2024 Magnesium [Mass/Vol] 2.4 mg/dL High 1.5-2.2 [facility] Comment on above: Performed By: #### L 501.2300, L501.5200 ####[facility] [address] [place], [address] Magnesium (Unsp spec) [Mass/ Vol]Ordered By: Claudio Devlin on 11-24-2024 Magnesium measurement (mass/volume) 2.4 mg/dL High 1.5-2.2 [facility] Magnesium measurement (mass/ volume)Ordered By: Claudio Devlin on 11-24-2024 Magnesium (Unsp spec) [Mass/Vol] 2.4 mg/dL High 1.5-2.2 [facility] Mean corpuscular hemoglobin (MCH) determinationOrdered By: Dannielle Boyce on 11-24-2024 Mean corpuscular hemoglobin (MCH) determination 29.1 pg 27.0-32.0 [facility] Mean corpuscular hemoglobin concentration (MCHC) determinationOrdered By: Dannielle Boyce on 11-24-2024 Mean corpuscular hemoglobin concentration (MCHC) determination 35.9 g/dL 32-36 [facility] Mean platelet volume determi nationOrdered By: Dannielle Boyce on 11-24-2024 Mean platelet volume determination 10.5 fl 6.2-12.0 [facility] Microscopic analysis of urin e for red blood cells (RBC)Ordered By: Claudio Devlin on 11-24-2024 Microscopic analysis of urine for red blood cells (RBC) 0-5 SEEN /hpf 0-5 [facility] Microscopic analysis of urine for red blood cells (RBC) 0-5 SEEN /hpf 0-5 [facility] Monocyte percentageOrdered B y: Dannielle Boyce on 11-24-2024 Monocytes/100 WBC (Bld) 10.2 % High 0-10 [facility] Monocyte percentage 10.2 % High 0-10 [facility] Mucus LM Ql (Urine sed)Order ed By: Claudio Devlin on 11-24-2024 Mucus Ql (Urine sed) 0 SEEN /hpf [facility] Neutrophil percentageOrdered By: Dannielle Boyce on 11-24-2024 Neutrophils/100 WBC (Bld) 79.5 % High 47-70 [facility] Neutrophil percentage 79.5 % High 47-70 [facility] Nitrite Test strip Ql (U)Ord ered By: Claudio Devlin on 11-24-2024 Nitrite Ql (U) Negative Negative [facility] No Panel InformationOrdered By: Dannielle Boyce on 11-24-2024 34 U/L <38 [facility] Nucleated red blood cell per centageOrdered By: Dannielle Boyce on 11-24-2024 Nucleated RBC/100 WBC (Bld) [Ratio] 0 % 0-5 [facility] Nucleated red blood cell percentage 0 % 0-5 [facility] Phosphoruson 11-24-2024 Phosphate [Mass/Vol] 6.9 mg/dL High 2.7-4.5 [facility] Comment on above: Performed By: #### L 501.2300, L501.5200 ####[facility] [address] [place], [place], [id number] Platelet countOrdered By: Yumiko Boyce on 11-24-2024 Platelet count 225 K/mm3 150-450 [facility] Potassium (Unsp spec) [Mass/ Vol]Ordered By: Dannielle Boyce on 11-24-2024 Potassium measurement (mass/volume) 3.1 mmol/L Low 3.3-5.1 [facility] Protein Test strip Ql (U)Ord ered By: Claudio Devlin on 11-24-2024 Protein Ql (U) 30 mg/dl High Negative [facility] Urine protein assay by test strip, semi-quantitative 30 mg/dl High Negative [facility] RBC Auto (Bld) [#/Vol]Ordere d By: Dannielle Boyce on 11-24-2024 Automated blood erythrocyte count 4.40 M/mm3 Low 4.6-6.2 [facility] Serum globulin measurementOr dered By: Dannielle Boyce on 11-24-2024 Globulin (S) [Mass/Vol] 3.5 g/dL 2.2-4.2 [facility] Serum globulin measurement 3.5 g/dL 2.2-4.2 [facility] Serum or plasma alanine asif otransferase (ALT) measurementOrdered By: Dannielle Boyce on 11-24-2024 ALT [Catalytic activity/Vol] 32 U/L <47 [facility] Serum or plasma albumin isael urement (mass/volume)Ordered By: Dannielle Boyce on 11-24-2024 Albumin [Mass/Vol] 4.2 g/dL 3.4-4.8 [facility] Serum or plasma albumin/glob ulin mass ratioOrdered By: Dannielle Boyce on 11-24-2024 Albumin/Globulin [Mass ratio] 1.2 {ratio} 0.9-2.4 [facility] Serum or plasma alkaline leo sphatase measurementOrdered By: Dannielle Boyce on 11-24-2024 ALP [Catalytic activity/Vol] 116 U/L 40-129 [facility] Serum phosphorus measurement Ordered By: Claudio Devlin on 11-24-2024 Serum phosphorus measurement 6.9 mg/dL High 2.7-4.5 [facility] Sodium (U) [Moles/Vol]Ordere d By: Claudio Devlin on 11-24-2024 Urine sodium measurement (moles/volume) 38 mmol/L Not Establ. [facility] Sodium levelOrdered By: Guanako Boyce on 11-24-2024 Sodium level 128 mmol/L Low 133-145 [facility] Specific gravity (U) [Rel de nsity]Ordered By: Claudio Devlin on 11-24-2024 Urine specific gravity measurement 1.015 1.002-1.030 [facility] Squamous epithelial cells de tection in urine sediment by light microscopyOrdered By: Claudio Devlin on 11-24-2024 Epithelial cells.squamous LM Ql (Urine sed) 0 SEEN /hpf 0-5 [facility] Squamous epithelial cells detection in urine sediment by light microscopy 0 SEEN /hpf [facility] Stool Lactoferrin/WBCon 11-06 WBCST Normal Reference Ran ge = Negative Fecal WBC Lactoferrin Negative: No Fecal WBC Lactoferrin present Normal [facility] Comment on above: Performed By: #### M 100.0605, M100.637, M100.4196 ####[facility] [address] [place], [address] Stool lactoferrin detection by immunoassayOrdered By: Ross Crump on 11-24-2024 Lactoferrin IA Ql (Stl) [facility] Total proteinOrdered By: Duncan Boyce on 11-24-2024 Protein [Mass/Vol] 7.7 g/dL 5.9-8.4 [facility] Total protein 7.7 g/dL 5.9-8.4 [facility] Urea nitrogen [Mass/Vol]Orde red By: Dannielle Boyce on 11-24-2024 Serum or plasma urea nitrogen measurement (mass/volume) 143 mg/dL High 4-19 [facility] Urinalysis, Completeon 11-24 BACTERIA 1+ /hpf Normal None Seen [facility] Comment on above: Order Comment: JASWINDER TER SPECIMEN Performed By: #### L 400.0001, ####[facility] [address] [place], [address] CAST,HYALINE 0-5 SEEN Normal 0-5 [facility] Comment on above: Order Comment: JASWINDER TER SPECIMEN Performed By: #### L 400.0001, ####[facility] [address] [place], [address] RBC 0-5 SEEN Normal 0-5 [facility] Comment on above: Order Comment: JASWINDER TER SPECIMEN Performed By: #### L 400.0001, ####[facility] [address] [place], [address] WBC 25-50 SEEN Normal 0-5 [facility] Comment on above: Order Comment: JASWINDER TER SPECIMEN Performed By: #### L 400.0001, ####[facility] [address] [place], [address] YEAST 1+ /hpf Normal None Seen [facility] Comment on above: Order Comment: JASWINDER TER SPECIMEN Performed By: #### L 400.0001, M100.2200 ####[facility] [address] [place], [address] EPI,SQUAMOUS 0 SEEN Normal 0-5 [facility] Comment on above: Order Comment: JASWINDER TER SPECIMEN Performed By: #### L 400.0001, M100.2200 ####[facility] [address] [place], [address] Mucus Ql (Urine sed) 0 SEEN Normal [facility] Comment on above: Order Comment: JASWINDER TER SPECIMEN Performed By: #### L 400.0001, M100.2200 ####[facility] [address] [place], [address] BACTERIA Normal None Seen [facility] Comment on above: Order Comment: JASWINDER TER SPECIMEN Result Comment: Canc elled via OM: MD Ordered Performed By: #### L 400.0001 ####[facility] [address] [place], [address] BILIRUBIN URINE Normal Negative [facility] Comment on above: Order Comment: JASWINDER TER SPECIMEN Result Comment: Canc elled via OM: MD Ordered Performed By: #### L 400.0001 ####[facility] [address] [place], [address] Clarity (U) Normal Clear [facility] Comment on above: Order Comment: JASWINDER TER SPECIMEN Result Comment: Canc elled via OM: MD Ordered Performed By: #### L 400.0001 ####[facility] [address] [place], [address] Color (U) Normal Yellow [facility] Comment on above: Order Comment: JASWINDER TER SPECIMEN Result Comment: Canc elled via OM: MD Ordered Performed By: #### L 400.0001 ####[facility] [address] [place], [address] EPI,SQUAMOUS Normal 0-5 [facility] Comment on above: Order Comment: JASWINDER TER SPECIMEN Result Comment: Canc elled via OM: MD Ordered Performed By: #### L 400.0001 ####[facility] [address] [place], [address] GLUCOSE, UR Normal Normal [facility] Comment on above: Order Comment: JASWINDER TER SPECIMEN Result Comment: Canc elled via OM: MD Ordered Performed By: #### L 400.0001 ####[facility] [address] [place], [address] KETONE UR Normal Negative [facility] Comment on above: Order Comment: JASWINDER TER SPECIMEN Result Comment: Canc elled via OM: MD Ordered Performed By: #### L 400.0001 ####[facility] [address] [place], [address] LEUK ESTERASE Normal Negative [facility] Comment on above: Order Comment: JASWINDER TER SPECIMEN Result Comment: Canc elled via OM: MD Ordered Performed By: #### L 400.0001 ####[facility] [address] [place], [address] Mucus Ql (Urine sed) Normal [facility] Comment on above: Order Comment: JASWINDER TER SPECIMEN Result Comment: Canc elled via OM: MD Ordered Performed By: #### L 400.0001 ####[facility] [address] [place], [address] Nitrite Ql (U) Normal Negative [facility] Comment on above: Order Comment: JASWINDER TER SPECIMEN Result Comment: Canc elled via OM: MD Ordered Performed By: #### L 400.0001 ####[facility] [address] [place], [address] OCCULT BLOOD-UR Normal Negative [facility] Comment on above: Order Comment: JASWINDER TER SPECIMEN Result Comment: Canc elled via OM: MD Ordered Performed By: #### L 400.0001 ####[facility] [address] [place], [address] pH UR Normal 5.0 - 8.0 [facility] Comment on above: Order Comment: JASWINDER TER SPECIMEN Result Comment: Canc elled via OM: MD Ordered Performed By: #### L 400.0001 ####[facility] [address] [place], [address] PROT DIPSTX Normal Negative [facility] Comment on above: Order Comment: JASWINDER TER SPECIMEN Result Comment: Canc elled via OM: MD Ordered Performed By: #### L 400.0001 ####[facility] [address] [place], [address] RBC Normal 0-5 [facility] Comment on above: Order Comment: JASWINDER TER SPECIMEN Result Comment: Canc elled via OM: MD Ordered Performed By: #### L 400.0001 ####[facility] [address] [place], [address] SP.GR. DIPSTX Normal 1.002-1.030 [facility] Comment on above: Order Comment: JASWINDER TER SPECIMEN Result Comment: Canc elled via OM: MD Ordered Performed By: #### L 400.0001 ####[facility] [address] [place], [address] UR Preservative Normal [facility] Comment on above: Order Comment: JASWINDER TER SPECIMEN Result Comment: Canc elled via OM: MD Ordered Performed By: #### L 400.0001 ####[facility] [address] [place], [address] UROBILI Normal Normal [facility] Comment on above: Order Comment: JASWINDER TER SPECIMEN Result Comment: Canc elled via OM: MD Ordered Performed By: #### L 400.0001 ####[facility] [address] [place], [place], [address] WBC Normal 0-5 [facility] Comment on above: Order Comment: JASWINDER TER SPECIMEN Result Comment: Ivet turcios via OM: Ordered Performed By: #### L 400.0001 ####[facility] [address] [place], [address] Urine blood detectionOrdered By: Claudio Devlin on 11-24-2024 Urine blood detection 50 /ul High Negative [facility] Urine clarityOrdered By: Carol Ann Devlin on 11-24-2024 Clarity (U) Sl. Cloudy Clear [facility] Urine color determinationOrd ered By: Claudio Devlin on 11-24-2024 Color (U) Yellow Yellow [facility] Urine creatinine measurement (mass/volume)Ordered By: Claudio Devlin on 11-24-2024 Creatinine (U) [Mass/Vol] 42.10 mg/dL 39.00-259.0 0 [facility] Urine cultureOrdered By: Carol Ann Devlin on 11-24-2024 Bacteria identified Cx Nom (U) Presumptive C albicans Abnormal [facility] Urine culture Presumptive C albicans Abnormal [facility] Urine glucose detectionOrder ed By: Claudio Devlin on 11-24-2024 Glucose Ql (U) Normal mg/dl Normal [facility] Urine glucose detection Normal mg/dl Normal [facility] Urine leukocyte esterase det ection by dipstickOrdered By: Claudio Devlin on 11-24-2024 Leukocyte esterase Test strip Ql (U) 500 /ul High Negative [facility] Urine pHOrdered By: [place] Devlin on 11-24-2024 pH (U) 5.0 [pH] 5.0 - 8.0 [facility] Urine sediment bacteria coun t by microscopy (number/high power field)Ordered By: Claudio Devlin on 11-24-2024 Bacteria LM.HPF (Urine sed) [#/Area] 1 /[HPF] None Seen [facility] Urine sediment bacteria count by microscopy (number/high power field) 1+ /hpf None Seen [facility] Urine sediment yeast count b y microscopy (number/high powered field)Ordered By: Claudio Devlin on 11-24-2024 Yeast LM.HPF (Urine sed) [#/Area] 1 /[HPF] None Seen [facility] Urine sodium measurement (mo les/volume)Ordered By: Claudio Devlni on 11-24-2024 Sodium (U) [Moles/Vol] 38 mmol/L Not Establ. [facility] Urine specific gravity measu rementOrdered By: Claudio Devlin on 11-24-2024 Specific gravity (U) [Rel density] 1.015 1.002-1.030 [facility] Urine total bilirubin detect ion by test stripOrdered By: Claudio Devlin on 11-24-2024 Urine total bilirubin detection by test strip Negative Negative [facility] Urine urobilinogen measureme ntOrdered By: Claudio Devlin on 11-24-2024 Urobilinogen Ql (U) Normal mg/dl Normal [facility] White blood cell (WBC) count Ordered By: Dannielle Boyce on 11-24-2024 White blood cell (WBC) count 8.9 K/mm3 4.4-11.0 [facility] White blood cell countOrdere d By: Claudio Devlin on 11-24-2024 White blood cell count 25-50 SEEN /hpf 0-5 [facility] White blood cell count 25-50 SEEN /hpf 0-5 [facility] pH (U)Ordered By: Claudio Devlin on 11-24-2024 Urine pH 5.0 5.0 - 8.0 [facility] Urine Cultureon 11-21-2024 URC Normal [facility] Comment on above: Performed By: #### M 100.7398 ####[facility] [address] [place], [place], [address] ALP [Catalytic activity/Vol] Ordered By: Kendy Modi on 11-19-2024 Serum or plasma alkaline phosphatase measurement 131 U/L High 40-129 [facility] ALT [Catalytic activity/Vol] Ordered By: Kendy Modi on 11-19-2024 Serum or plasma alanine aminotransferase (ALT) measurement 33 U/L <47 [facility] Absolute lymphocyte countOrd ered By: Kendy Modi on 11-19-2024 Lymphocytes Auto (Unsp spec) [#/Vol] 1.06 10*3/uL 0.83-4.51 [facility] Absolute neutrophil countOrd ered By: Kendy Modi on 11-19-2024 Neutrophils (Bld) [#/Vol] 7.2 10*3/uL 2.0-7.7 [facility] Absolute neutrophil count 7.2 X10^3/uL 2.0-7.7 [facility] Albumin [Mass/Vol]Ordered By : Kendy Modi on 11-19-2024 Serum or plasma albumin measurement (mass/volume) 4.7 g/dL 3.4-4.8 [facility] Albumin/Globulin [Mass ratio ]Ordered By: Kendy Modi on 11-19-2024 Serum or plasma albumin/globulin mass ratio 1.1 RATIO 0.9-2.4 [facility] Anion gap [Moles/Vol]Ordered By: Kendy Modi on 11-19-2024 Anion gap in Serum or Plasma 23 High 12-19 [facility] Anion gap in Serum or Plasma Ordered By: Kendy Modi on 11-19-2024 Anion gap [Moles/Vol] 23 mmol/L High 12-19 [facility] Automated lymphocyte count a s percentage of total leukocytesOrdered By: Kendy Modi on 11-19-2024 Lymphocytes/100 WBC Auto (Unsp spec) 11.8 % Low 19-41 [facility] BUN/creatinine ratioOrdered By: Kendy Modi on 11-19-2024 Urea nitrogen/Creatinine [Mass ratio] 31.0 mg/mg High 10-20 [facility] BUN/creatinine ratio 31.0 RATIO High 10-20 [facility] Basophil percentageOrdered B y: Kendy Modi on 11-19-2024 Basophils/100 WBC (Bld) 0.1 % 0-1 [facility] Basophil percentage 0.1 % 0-1 [facility] Bilirubin, totalOrdered By: Kendy Modi on 11-19-2024 Bilirubin [Mass/Vol] 0.38 mg/dL 0.00-1.30 [facility] Bilirubin, total 0.38 mg/dL 0.00-1.30 [facility] CBC W/Diff, Automatedon 11-05 Absolute Lymph 1.06 X10 3/uL Normal 0.83-4.51 [facility] Comment on above: Order Comment: Order Date: 11/19/24Order Info: 0184-1 - CBCD Performed By: #### L 500.4050, L100.0100 ####[facility] [address] [place], [address] Absolute Neut 7.2 X10 3/uL Normal 2.0-7.7 [facility] Comment on above: Order Comment: Order Date: 11/19/24Order Info: 0184-1 - CBCD Performed By: #### L 500.4050, L100.0100 ####[facility] [address] [place], [address] Basophils/100 WBC (Bld) 0.1 % Normal 0-1 [facility] Comment on above: Order Comment: Order Date: 11/19/24Order Info: 0184-1 - CBCD Performed By: #### L 500.4050, L100.0100 ####[facility] [address] [place], [address] Eosinophils/100 WBC (Bld) 0.6 % Normal 0-5 [facility] Comment on above: Order Comment: Order Date: 11/19/24Order Info: 0184-1 - CBCD Performed By: #### L 500.4050, L100.0100 ####[facility] [address] [place], [address] Erythrocyte distribution width (RBC) [Ratio] 14.5 % Normal 11.6-14.6 [facility] Comment on above: Order Comment: Order Date: 11/19/24Order Info: 0184-1 - CBCD Performed By: #### L 500.4050, L100.0100 ####[facility] [address] [place], [address] Hematocrit (Bld) [Volume fraction] 40.9 % Normal 40-54 [facility] Comment on above: Order Comment: Order Date: 11/19/24Order Info: 0184-1 - CBCD Performed By: #### L 500.4050, L100.0100 ####[facility] [address] [place], [address] Hemoglobin (Bld) [Mass/Vol] 13.8 g/dL Normal 13.0-16.5 [facility] Comment on above: Order Comment: Order Date: 11/19/24Order Info: 0184-1 - CBCD Performed By: #### L 500.4050, L100.0100 ####[facility] [address] [place], [address] IG% 0.400 Normal 0.0-0.9 [facility] Comment on above: Order Comment: Order Date: 11/19/24Order Info: 018- - CBCD Result Comment: IG% - Immature Granulocytes (promyelocytes, myelocytes andmetamyelocytes) > 1% indicates that a LEFT SHIFT is Present. Performed By: #### L 500.4050, L100.0100 ####[facility] [address] [place], [address] Lymphocytes/100 WBC (Bld) 11.8 % Low 19-41 [facility] Comment on above: Order Comment: Order Date: 11/19/24Order Info: 018- - CBCD Performed By: #### L 500.4050, L100.0100 ####[facility] [address] [place], [address] MCH (RBC) [Entitic mass] 28.8 pg Normal 27.0-32.0 [facility] Comment on above: Order Comment: Order Date: 11/19/24Order Info: 0184-1 - CBCD Performed By: #### L 500.4050, L100.0100 ####[facility] [address] [place], [address] MCHC (RBC) [Mass/Vol] 33.7 g/dL Normal 32-36 [facility] Comment on above: Order Comment: Order Date: 11/19/24Order Info: 0184-1 - CBCD Performed By: #### L 500.4050, L100.0100 ####[facility] [address] [place], [address] MCV (RBC) [Entitic vol] 85.2 fL Normal 80-94 [facility] Comment on above: Order Comment: Order Date: 11/19/24Order Info: 0184-1 - CBCD Performed By: #### L 500.4050, L100.0100 ####[facility] [address] [place], [address] Monocytes/100 WBC (Bld) 7.8 % Normal 0-10 [facility] Comment on above: Order Comment: Order Date: 11/19/24Order Info: 0184-1 - CBCD Performed By: #### L 500.4050, L100.0100 ####[facility] [address] [place], [address] Neutrophils/100 WBC (Bld) 79.3 % High 47-70 [facility] Comment on above: Order Comment: Order Date: 11/19/24Order Info: 0184-1 - CBCD Performed By: #### L 500.4050, L100.0100 ####[facility] [address] [place], [address] Nucleated RBC (Bld) [#/Vol] 0 10*3/uL Normal 0-5 [facility] Comment on above: Order Comment: Order Date: 11/19/24Order Info: 0184-1 - CBCD Performed By: #### L 500.4050, L100.0100 ####[facility] [address] [place], [address] Platelet mean volume (Bld) [Entitic vol] 10.4 fL Normal 6.2-12.0 [facility] Comment on above: Order Comment: Order Date: 11/19/24Order Info: 0184-1 - CBCD Performed By: #### L 500.4050, L100.0100 ####[facility] [address] [place], [address] Platelets (Bld) [#/Vol] 287 10*3/uL Normal 150-450 [facility] Comment on above: Order Comment: Order Date: 11/19/24Order Info: 0184-1 - CBCD Performed By: #### L 500.4050, L100.0100 ####[facility] [address] [place], [address] RBC (Bld) [#/Vol] 4.80 10*6/uL Normal 4.6-6.2 [facility] Comment on above: Order Comment: Order Date: 11/19/24Order Info: 0184-1 - CBCD Performed By: #### L 500.4050, L100.0100 ####[facility] [address] [place], [address] RDW SD 44.7 fl High 35.1-43.9 [facility] Comment on above: Order Comment: Order Date: 11/19/24Order Info: 0184-1 - CBCD Performed By: #### L 500.4050, L100.0100 ####[facility] [address] [place], [address] WBC (Bld) [#/Vol] 9.0 10*3/uL Normal 4.4-11.0 [facility] Comment on above: Order Comment: Order Date: 11/19/24Order Info: 0184-1 - CBCD Performed By: #### L 500.4050, L100.0100 ####[facility] [address] [place], [address] Calcium [Mass/Vol]Ordered By : Kendy Modi on 11-19-2024 Serum or plasma calcium measurement (mass/volume) 9.8 mg/dL 7.6-11.0 [facility] Carbon dioxide, total [Moles /volume] in Central venous bloodOrdered By: Kendy Modi on 11-19-2024 CO2 [Moles/Vol] 20.2 mmol/L Low 21.0-32.0 [facility] Carbon dioxide, total [Moles/volume] in Central venous blood 20.2 mmol/L Low 21.0-32.0 [facility] Chloride assayOrdered By: Keerthi Modi on 11-19-2024 Chloride [Moles/Vol] 89 mmol/L Low 98-108 [facility] Chloride assay 89 mmol/L Low 98-108 [facility] Comprehensive Metabolic Prof ilon 11-19-2024 Albumin [Mass/Vol] 4.7 g/dL Normal 3.4-4.8 [facility] Comment on above: Order Comment: Order Date: 11/19/24Order Info: 0786-1 - CMP Performed By: #### L 500.4050, L100.0100 ####[facility] [address] [place], [address] Albumin/Globulin [Mass ratio] 1.1 {ratio} Normal 0.9-2.4 [facility] Comment on above: Order Comment: Order Date: 11/19/24Order Info: 0786-1 - CMP Performed By: #### L 500.4050, L100.0100 ####[facility] [address] [place], [address] ALK PHOS 131 U/L High 40-129 [facility] Comment on above: Order Comment: Order Date: 11/19/24Order Info: 0786-1 - CMP Performed By: #### L 500.4050, L100.0100 ####[facility] [address] [place], [address] ALT [Catalytic activity/Vol] 33 U/L Normal <=46 [facility] Comment on above: Order Comment: Order Date: 11/19/24Order Info: 0786-1 - CMP Performed By: #### L 500.4050, L100.0100 ####[facility] [address] [place], [address] AST [Catalytic activity/Vol] 32 U/L Normal <=37 [facility] Comment on above: Order Comment: Order Date: 11/19/24Order Info: 0786-1 - CMP Performed By: #### L 500.4050, L100.0100 ####[facility] [address] [place], [address] Bilirubin [Mass/Vol] 0.38 mg/dL Normal 0.00-1.30 [facility] Comment on above: Order Comment: Order Date: 11/19/24Order Info: 0786-1 - CMP Performed By: #### L 500.4050, L100.0100 ####[facility] [address] [place], [address] BUN/CRE 31.0 RATIO High 10-20 [facility] Comment on above: Order Comment: Order Date: 11/19/24Order Info: 0786-1 - CMP Performed By: #### L 500.4050, L100.0100 ####[facility] [address] [place], [address] Calcium [Mass/Vol] 9.8 mg/dL Normal 7.6-11.0 [facility] Comment on above: Order Comment: Order Date: 11/19/24Order Info: 0786-1 - CMP Performed By: #### L 500.4050, L100.0100 ####[facility] [address] [place], [address] Chloride [Moles/Vol] 89 mmol/L Low 98-108 [facility] Comment on above: Order Comment: Order Date: 11/19/24Order Info: 0786-1 - CMP Performed By: #### L 500.4050, L100.0100 ####[facility] [address] [place], [address] CO2 [Moles/Vol] 20.2 mmol/L Low 21.0-32.0 [facility] Comment on above: Order Comment: Order Date: 11/19/24Order Info: 0786-1 - CMP Performed By: #### L 500.4050, L100.0100 ####[facility] [address] [place], [address] Creatinine [Mass/Vol] 3.52 mg/dL High 0.70-1.20 [facility] Comment on above: Order Comment: Order Date: 11/19/24Order Info: 0786-1 - CMP Performed By: #### L 500.4050, L100.0100 ####[facility] [address] [place], [address] GAP 23 High 5-15 [facility] Comment on above: Order Comment: Order Date: 11/19/24Order Info: 0786-1 - CMP Performed By: #### L 500.4050, L100.0100 ####[facility] [address] [place], [address] GFR/1.73 sq M.predicted among non-blacks MDRD (S/P/Bld) [Vol rate/Area] 18 mL/min/{1.73_m2} Low >60 [facility] Comment on above: Order Comment: Order Date: 11/19/24Order Info: 0786-1 - CMP Result Comment: mL/m in/1.73m2 CKD-EPI Creatinine Equation (2020) Performed By: #### L 500.4050, L100.0100 ####[facility] [address] [place], [address] Globulin (S) [Mass/Vol] 4.1 g/dL Normal 2.2-4.2 [facility] Comment on above: Order Comment: Order Date: 11/19/24Order Info: 0786-1 - CMP Performed By: #### L 500.4050, L100.0100 ####[facility] [address] [place], [address] Glucose [Mass/Vol] 125 mg/dL High 70-99 [facility] Comment on above: Order Comment: Order Date: 11/19/24Order Info: 0786-1 - CMP Performed By: #### L 500.4050, L100.0100 ####[facility] [address] [place], [address] Potassium [Moles/Vol] 4.3 mmol/L Normal 3.3-5.1 [facility] Comment on above: Order Comment: Order Date: 11/19/24Order Info: 0786-1 - CMP Performed By: #### L 500.4050, L100.0100 ####[facility] [address] [place], [address] Sodium [Moles/Vol] 132 mmol/L Low 133-145 [facility] Comment on above: Order Comment: Order Date: 11/19/24Order Info: 0786-1 - CMP Performed By: #### L 500.4050, L100.0100 ####[facility] [address] [place], [address] T PROT 8.8 g/dL High 5.9-8.4 [facility] Comment on above: Order Comment: Order Date: 11/19/24Order Info: 0786-1 - CMP Performed By: #### L 500.4050, L100.0100 ####[facility] [address] [place], [address] Urea nitrogen [Mass/Vol] 109 mg/dL Invalid Interpretation Code 4-19 [facility] Comment on above: Order Comment: Order Date: 11/19/24Order Info: 0786-1 - CMP Result Comment: Crit ical Result(s) Called at: by:??Results read back bysafl.CRITICAL CALLED TO DR ALDANA AT 2103 BY LYDIA. RESULTSREAD BACK BY SAME.Critical Result(s) Called at: by:??Results read back bysame. Performed By: #### L 500.4050, L100.0100 ####[facility] [address] [place], [address] Creatinine [Mass/Vol]Ordered By: Kendy Modi on 11-19-2024 Serum creatinine measurement (mass/volume) 3.52 mg/dL High 0.70-1.20 [facility] Eosinophil percentageOrdered By: Kendy Modi on 11-19-2024 Eosinophils/100 WBC (Bld) 0.6 % 0-5 [facility] Eosinophil percentage 0.6 % 0-5 [facility] Erythrocyte distribution wid th (RBC) [Ratio]Ordered By: Kendy Modi on 11-19-2024 Erythrocyte distribution width ratio 14.5 % 11.6-14.6 [facility] Erythrocyte distribution width standard deviation 44.7 fl High 35.1-43.9 [facility] Erythrocyte distribution wid th ratioOrdered By: Kendy Modi on 11-19-2024 Erythrocyte distribution width (RBC) [Ratio] 14.5 % 11.6-14.6 [facility] Erythrocyte distribution wid th standard deviationOrdered By: Kendy Modi on 11-19-2024 Erythrocyte distribution width (RBC) [Ratio] 44.7 fl High 35.1-43.9 [facility] GFR/1.73 sq M.predicted ivette g non-blacks MDRD (S/P/Bld) [Vol rate/Area]Ordered By: Kendy Modi on 11-19-2024 Glomerular filtration rate (GFR) estimation/1.73 sq m using serum, plasma, or whole b 18 Low >60 [facility] Glomerular filtration rate ( GFR) estimation/1.73 sq m using serum, plasma, or whole bOrdered By: Kendy Modi on 11-19-2024 GFR/1.73 sq M.predicted among non-blacks MDRD (S/P/Bld) [Vol rate/Area] 18 mL/min/{1.73_m2} Low >60 [facility] Comment on above: mL/min/1.73m2 CKD-EP I Creatinine Equation (2020) Glucose [Mass/Vol]Ordered By : Kendy Modi on 11-19-2024 Serum glucose measurement (mass/volume) 125 mg/dL High 70-99 [facility] Hematocrit Auto (Bld) [Volum e fraction]Ordered By: Kendy Modi on 11-19-2024 Hematocrit (Bld) [Volume fraction] 40.9 % 40-54 [facility] Automated blood hematocrit (percentage) 40.9 % 40-54 [facility] Hemoglobin measurementOrdere d By: Kendy Modi on 11-19-2024 Hemoglobin (Bld) [Mass/Vol] 13.8 g/dL 13.0-16.5 [facility] Hemoglobin measurement 13.8 g/dL 13.0-16.5 [facility] Immature granulocytes/100 WB C Auto (Bld)Ordered By: Kendy Modi on 11-19-2024 Immature granulocytes/100 WBC (Bld) 0.400 % 0.0-0.9 [facility] Comment on above: IG% - Immature Granu locytes (promyelocytes, myelocytes and metamyelocytes) > 1% indicates that a LEFT SHIFT is Present. Automated immature granulocyte percentage 0.400 % 0.0-0.9 [facility] Laboratory - Chemistry and C hemistry - challengeOrdered By: Kendy Modi on 11-19-2024 AST [Catalytic activity/Vol] 32 U/L <38 [facility] Lymphocytes Auto (Unsp spec) [#/Vol]Ordered By: Kendy Modi on 11-19-2024 Absolute lymphocyte count 1.06 X10^3/uL 0.83-4.51 [facility] Lymphocytes/100 WBC Auto (Un sp spec)Ordered By: Kendy Modi on 11-19-2024 Automated lymphocyte count as percentage of total leukocytes 11.8 % Low 19-41 [facility] MCV (RBC) [Entitic vol]Order ed By: Kendy Modi on 11-19-2024 MCV (mean corpuscular volume) determination 85.2 fL 80-94 [facility] MCV (mean corpuscular volume ) determinationOrdered By: Kendy Modi on 11-19-2024 MCV (RBC) [Entitic vol] 85.2 fL 80-94 [facility] Mean corpuscular hemoglobin (MCH) determinationOrdered By: Kendy Modi on 11-19-2024 MCH (RBC) [Entitic mass] 28.8 pg 27.0-32.0 [facility] Mean corpuscular hemoglobin (MCH) determination 28.8 pg 27.0-32.0 [facility] Mean corpuscular hemoglobin concentration (MCHC) determinationOrdered By: Kendy Modi on 11-19-2024 MCHC (RBC) [Mass/Vol] 33.7 g/dL 32-36 [facility] Mean corpuscular hemoglobin concentration (MCHC) determination 33.7 g/dL -36 [facility] Mean platelet volume determi nationOrdered By: Kendy Modi on 11-19-2024 Platelet mean volume (Bld) [Entitic vol] 10.4 fL 6.2-12.0 [facility] Mean platelet volume determination 10.4 fl 6.2-12.0 [facility] Monocyte percentageOrdered B y: Kendy Modi on 11-19-2024 Monocytes/100 WBC (Bld) 7.8 % 0-10 [facility] Monocyte percentage 7.8 % 0-10 [facility] Neutrophil percentageOrdered By: Kendy Modi on 11-19-2024 Neutrophils/100 WBC (Bld) 79.3 % High 47-70 [facility] Neutrophil percentage 79.3 % High 47-70 [facility] No Panel InformationOrdered By: Kendy Modi on 11-19-2024 32 U/L <38 [facility] Nucleated red blood cell per centageOrdered By: Kendy Modi on 11-19-2024 Nucleated RBC/100 WBC (Bld) [Ratio] 0 % 0-5 [facility] Nucleated red blood cell percentage 0 % 0-5 [facility] Platelet countOrdered By: Keerthi Modi on 11-19-2024 Platelets (Bld) [#/Vol] 287 10*3/uL 150-450 [facility] Platelet count 287 K/mm3 150-450 [facility] Potassium (Unsp spec) [Mass/ Vol]Ordered By: Kendy Modi on 11-19-2024 Potassium measurement (mass/volume) 4.3 mmol/L 3.3-5.1 [facility] Potassium measurement (mass/ volume)Ordered By: Kendy Moid on 11-19-2024 Potassium (Unsp spec) [Mass/Vol] 4.3 mmol/L 3.3-5.1 [facility] RBC Auto (Bld) [#/Vol]Ordere d By: Kendy Modi on 11-19-2024 RBC (Bld) [#/Vol] 4.80 10*6/uL 4.6-6.2 [facility] Automated blood erythrocyte count 4.80 M/mm3 4.6-6.2 [facility] Serum creatinine measurement (mass/volume)Ordered By: Kendy Modi on 11-19-2024 Creatinine [Mass/Vol] 3.52 mg/dL High 0.70-1.20 [facility] Serum globulin measurementOr dered By: Kendy Modi on 11-19-2024 Globulin (S) [Mass/Vol] 4.1 g/dL 2.2-4.2 [facility] Serum globulin measurement 4.1 g/dL 2.2-4.2 [facility] Serum glucose measurement (m ass/volume)Ordered By: Kendy Modi on 11-19-2024 Glucose [Mass/Vol] 125 mg/dL High 70-99 [facility] Serum or plasma alanine asif otransferase (ALT) measurementOrdered By: Kendy Modi on 11-19-2024 ALT [Catalytic activity/Vol] 33 U/L <47 [facility] Serum or plasma albumin isael urement (mass/volume)Ordered By: Kendy Modi on 11-19-2024 Albumin [Mass/Vol] 4.7 g/dL 3.4-4.8 [facility] Serum or plasma albumin/glob ulin mass ratioOrdered By: Kendy Modi on 11-19-2024 Albumin/Globulin [Mass ratio] 1.1 {ratio} 0.9-2.4 [facility] Serum or plasma alkaline leo sphatase measurementOrdered By: Kendy Modi on 11-19-2024 ALP [Catalytic activity/Vol] 131 U/L High 40-129 [facility] Serum or plasma calcium isael urement (mass/volume)Ordered By: Kendy Modi on 11-19-2024 Calcium [Mass/Vol] 9.8 mg/dL 7.6-11.0 [facility] Serum or plasma urea nitroge n measurement (mass/volume)Ordered By: Kendy Modi on 11-19-2024 Urea nitrogen [Mass/Vol] 109 mg/dL High 11-23 [facility] Comment on above: Critical Result(s) C alled at: by: Results read back by same.CRITICAL CALLED TO DR ALDANA AT 210 BY LYDIA. RESULTS READ BACK BY SAME.Critical Result(s) Called at: by: Results read back by same. Sodium levelOrdered By: Kendy Modi on 11-19-2024 Sodium [Moles/Vol] 132 mmol/L Low 133-145 [facility] Sodium level 132 mmol/L Low 133-145 [facility] Total proteinOrdered By: Kendy Modi on 11-19-2024 Protein [Mass/Vol] 8.8 g/dL High 5.9-8.4 [facility] Total protein 8.8 g/dL High 5.9-8.4 [facility] Urea nitrogen [Mass/Vol]Orde red By: Kendy Modi on 11-19-2024 Serum or plasma urea nitrogen measurement (mass/volume) 109 mg/dL High 11-23 [facility] Urine cultureOrdered By: Kendy Modi on 11-19-2024 Bacteria identified Cx Nom (U) Klebsiella pneumoniae sp pneum Abnormal [facility] Urine culture Klebsiella pneumonia e sp pneum Abnormal [facility] White blood cell (WBC) count Ordered By: Kendy Modi on 11-19-2024 WBC (Bld) [#/Vol] 9.0 10*3/uL 4.4-11.0 [facility] White blood cell (WBC) count 9.0 K/mm3 4.4-11.0 [facility] CNPNon 11-13-2024 CNPN Telephone (HEMAWS) ISAIAS VEGA ([id number]) 1955 M Date Time Provider Department 11/13/24 EVERARDO YUSUF During your visit today, we recorded the following information about you: Rashida Alas Kimberlyn 11/13/2024 3:31 PM Signed Patient requesting refill of gabapentin 300mg. Patient uses [facility] for short term, [facility] for [facility]. Patient is completely out of medication. Jazmine Pang LPN 11/13/2024 3:56 PM Signed Patient is aware to contact PCP for a refill of gabapentin. Patient has not been seen here since 06/2023. 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 Normal [facility] Visit Reporton Cardiology Visit Report Normal [facility] Basic Metabolic Profile (BMP )on 10-22-2024 BUN Normal 11-23 [facility] Comment on above: Result Comment: Canc elled via OM: Order cancelled - Patient discharged Performed By: #### L 100.0100, L500.2500 ####[facility] [address] [place], [address] BUN/CRE Normal 10-20 [facility] Comment on above: Result Comment: Canc elled via OM: Order cancelled - Patient discharged Performed By: #### L 100.0100, L500.2500 ####[facility] [address] [place], [address] Calcium Normal 7.6-11.0 [facility] Comment on above: Result Comment: Canc elled via OM: Order cancelled - Patient discharged Performed By: #### L 100.0100, L500.2500 ####[facility] [address] [place], [address] CL Normal 98-108 [facility] Comment on above: Result Comment: Canc elled via OM: Order cancelled - Patient discharged Performed By: #### L 100.0100, L500.2500 ####[facility] [address] [place], [address] CO2 Normal 21.0-32.0 [facility] Comment on above: Result Comment: Canc elled via OM: Order cancelled - Patient discharged Performed By: #### L 100.0100, L500.2500 ####[facility] [address] [place], [address] CREAT,SERUM Normal 0.70-1.20 [facility] Comment on above: Result Comment: Canc elled via OM: Order cancelled - Patient discharged Performed By: #### L 100.0100, L500.2500 ####[facility] [address] [place], [address] eGFR Normal >60 [facility] Comment on above: Result Comment: Canc elled via OM: Order cancelled - Patient discharged Performed By: #### L 100.0100, L500.2500 ####[facility] [address] [place], [address] GAP Normal 5-15 [facility] Comment on above: Result Comment: Canc elled via OM: Order cancelled - Patient discharged Performed By: #### L 100.0100, L500.2500 ####[facility] [address] [place], [address] GLU Normal 70-99 [facility] Comment on above: Result Comment: Canc elled via OM: Order cancelled - Patient discharged Performed By: #### L 100.0100, L500.2500 ####[facility] [address] [place], [address] Potassium Normal 3.3-5.1 [facility] Comment on above: Result Comment: Canc elled via OM: Order cancelled - Patient discharged Performed By: #### L 100.0100, L500.2500 ####[facility] [address] [place], [address] Basic Metabolic Profile (BMP) Normal 133-145 [facility] Comment on above: Result Comment: Canc elled via OM: Order cancelled - Patient discharged Performed By: #### L 100.0100, L500.2500 ####[facility] [address] [place], [address] CBC W/Diff, Automatedon 10-05 Absolute Neut Normal 2.0-7.7 [facility] Comment on above: Result Comment: Canc elled via OM: Order cancelled - Patient discharged Performed By: #### L 100.0100, L500.2500 ####[facility] [address] [place], [address] HCT Normal 40-54 [facility] Comment on above: Result Comment: Canc elled via OM: Order cancelled - Patient discharged Performed By: #### L 100.0100, L500.2500 ####[facility] [address] [place], [address] HGB Normal 13.0-16.5 [facility] Comment on above: Result Comment: Canc elled via OM: Order cancelled - Patient discharged Performed By: #### L 100.0100, L500.2500 ####[facility] [address] [place], [address] MCH Normal 27.0-32.0 [facility] Comment on above: Result Comment: Canc elled via OM: Order cancelled - Patient discharged Performed By: #### L 100.0100, L500.2500 ####[facility] [address] [place], [address] MCHC Normal 32-36 [facility] Comment on above: Result Comment: Canc elled via OM: Order cancelled - Patient discharged Performed By: #### L 100.0100, L500.2500 ####[facility] [address] [place], [address] MCV Normal 80-94 [facility] Comment on above: Result Comment: Canc elled via OM: Order cancelled - Patient discharged Performed By: #### L 100.0100, L500.2500 ####[facility] [address] [place], [address] NEUT% Normal 47-70 [facility] Comment on above: Result Comment: Canc elled via OM: Order cancelled - Patient discharged Performed By: #### L 100.0100, L500.2500 ####[facility] [address] [place], [address] PLT Normal 150-450 [facility] Comment on above: Result Comment: Canc elled via OM: Order cancelled - Patient discharged Performed By: #### L 100.0100, L500.2500 ####[facility] [address] [place], [address] RBC Normal 4.6-6.2 [facility] Comment on above: Result Comment: Canc elled via OM: Order cancelled - Patient discharged Performed By: #### L 100.0100, L500.2500 ####[facility] [address] [place], [address] RDW CV Normal 11.6-14.6 [facility] Comment on above: Result Comment: Canc elled via OM: Order cancelled - Patient discharged Performed By: #### L 100.0100, L500.2500 ####[facility] [address] [place], [address] RDW SD Normal 35.1-43.9 [facility] Comment on above: Result Comment: Canc elled via OM: Order cancelled - Patient discharged Performed By: #### L 100.0100, L500.2500 ####[facility] [address] [place], [address] WBC Normal 4.4-11.0 [facility] Comment on above: Result Comment: Canc elled via OM: Order cancelled - Patient discharged Performed By: #### L 100.0100, L500.2500 ####[facility] [address] [place], [address] Anion gap [Moles/Vol]Ordered By: Kendy Modi on 10-21-2024 Anion gap in Serum or Plasma 20 High 5-15 [facility] BUN/creatinine ratioOrdered By: Kendy Modi on 10-21-2024 BUN/creatinine ratio 13.7 RATIO 10-20 [facility] Basic Metabolic Profile (BMP )on 10-21-2024 BUN/CRE 13.7 RATIO Normal 10-20 [facility] Comment on above: Performed By: #### L 500.2500 ####[facility] [address] [place], [address] Calcium [Mass/Vol] 9.2 mg/dL Normal 7.6-11.0 [facility] Comment on above: Performed By: #### L 500.2500 ####[facility] [address] [place], [address] Chloride [Moles/Vol] 94 mmol/L Low 98-108 [facility] Comment on above: Performed By: #### L 500.2500 ####[facility] [address] [place], [address] CO2 [Moles/Vol] 25.1 mmol/L Normal 21.0-32.0 [facility] Comment on above: Performed By: #### L 500.2500 ####[facility] [address] [place], [address] Creatinine [Mass/Vol] 1.23 mg/dL High 0.70-1.20 [facility] Comment on above: Performed By: #### L 500.2500 ####[facility] [address] [place], [address] GAP 20 High 5-15 [facility] Comment on above: Performed By: #### L 500.2500 ####[facility] [address] [place], [address] GFR/1.73 sq M.predicted among non-blacks MDRD (S/P/Bld) [Vol rate/Area] 65 mL/min/{1.73_m2} Normal >60 [facility] Comment on above: Result Comment: mL/m in/1.73m2 CKD-EPI Creatinine Equation (2020) Performed By: #### L 500.2500 ####[facility] [address] [place], [address] Glucose [Mass/Vol] 121 mg/dL High 70-99 [facility] Comment on above: Performed By: #### L 500.2500 ####[facility] [address] [place], [address] Potassium [Moles/Vol] 3.5 mmol/L Normal 3.3-5.1 [facility] Comment on above: Performed By: #### L 500.2500 ####[facility] [address] [place], [address] Sodium [Moles/Vol] 139 mmol/L Normal 133-145 [facility] Comment on above: Performed By: #### L 500.2500 ####[facility] [address] [place], [address] Urea nitrogen [Mass/Vol] 17 mg/dL Normal 4-19 [facility] Comment on above: Performed By: #### L 500.2500 ####[facility] [address] [place], [address] BUN Normal 4-19 [facility] Comment on above: Result Comment: Canc elled via OM: Order cancelled - Patient discharged Performed By: #### L 500.2500, L100.0100 ####[facility] [address] [place], [address] BUN/CRE Normal 10-20 [facility] Comment on above: Result Comment: Canc elled via OM: Order cancelled - Patient discharged Performed By: #### L 500.2500, L100.0100 ####[facility] [address] [place], [address] Calcium Normal 7.6-11.0 [facility] Comment on above: Result Comment: Canc elled via OM: Order cancelled - Patient discharged Performed By: #### L 500.2500, L100.0100 ####[facility] [address] [place], [address] CL Normal 98-108 [facility] Comment on above: Result Comment: Canc elled via OM: Order cancelled - Patient discharged Performed By: #### L 500.2500, L100.0100 ####[facility] [address] [place], [address] CO2 Normal 21.0-32.0 [facility] Comment on above: Result Comment: Canc elled via OM: Order cancelled - Patient discharged Performed By: #### L 500.2500, L100.0100 ####[facility] [address] [place], [address] CREAT,SERUM Normal 0.70-1.20 [facility] Comment on above: Result Comment: Canc elled via OM: Order cancelled - Patient discharged Performed By: #### L 500.2500, L100.0100 ####[facility] [address] [place], [address] eGFR Normal >60 [facility] Comment on above: Result Comment: Canc elled via OM: Order cancelled - Patient discharged Performed By: #### L 500.2500, L100.0100 ####[facility] [address] [place], [address] GAP Normal 5-15 [facility] Comment on above: Result Comment: Canc elled via OM: Order cancelled - Patient discharged Performed By: #### L 500.2500, L100.0100 ####[facility] [address] [place], [address] GLU Normal 70-99 [facility] Comment on above: Result Comment: Canc elled via OM: Order cancelled - Patient discharged Performed By: #### L 500.2500, L100.0100 ####[facility] [address] [place], [address] Potassium Normal 3.3-5.1 [facility] Comment on above: Result Comment: Canc elled via OM: Order cancelled - Patient discharged Performed By: #### L 500.2500, L100.0100 ####[facility] [address] [place], [address] Basic Metabolic Profile (BMP) Normal 133-145 [facility] Comment on above: Result Comment: Canc elled via OM: Order cancelled - Patient discharged Performed By: #### L 500.2500, L100.0100 ####[facility] [address] [place], [address] CBC W/Diff, Automatedon - Absolute Neut Normal 2.0-7.7 [facility] Comment on above: Result Comment: Canc elled via OM: Order cancelled - Patient discharged Performed By: #### L 500.2500, L100.0100 ####[facility] [address] [place], [address] HCT Normal 40-54 [facility] Comment on above: Result Comment: Canc elled via OM: Order cancelled - Patient discharged Performed By: #### L 500.2500, L100.0100 ####[facility] [address] [place], [address] HGB Normal 13.0-16.5 [facility] Comment on above: Result Comment: Canc elled via OM: Order cancelled - Patient discharged Performed By: #### L 500.2500, L100.0100 ####[facility] [address] [place], [address] MCH Normal 27.0-32.0 [facility] Comment on above: Result Comment: Canc elled via OM: Order cancelled - Patient discharged Performed By: #### L 500.2500, L100.0100 ####[facility] [address] [place], [address] MCHC Normal 32-36 [facility] Comment on above: Result Comment: Canc elled via OM: Order cancelled - Patient discharged Performed By: #### L 500.2500, L100.0100 ####[facility] [address] [place], [address] MCV Normal 80-94 [facility] Comment on above: Result Comment: Canc elled via OM: Order cancelled - Patient discharged Performed By: #### L 500.2500, L100.0100 ####[facility] [address] [place], [address] NEUT% Normal 47-70 [facility] Comment on above: Result Comment: Canc elled via OM: Order cancelled - Patient discharged Performed By: #### L 500.2500, L100.0100 ####[facility] [address] [place], [address] PLT Normal 150-450 [facility] Comment on above: Result Comment: Canc elled via OM: Order cancelled - Patient discharged Performed By: #### L 500.2500, L100.0100 ####[facility] [address] [place], [address] RBC Normal 4.6-6.2 [facility] Comment on above: Result Comment: Canc elled via OM: Order cancelled - Patient discharged Performed By: #### L 500.2500, L100.0100 ####[facility] [address] [place], [address] RDW CV Normal 11.6-14.6 [facility] Comment on above: Result Comment: Canc elled via OM: Order cancelled - Patient discharged Performed By: #### L 500.2500, L100.0100 ####[facility] [address] [place], [address] RDW SD Normal 35.1-43.9 [facility] Comment on above: Result Comment: Canc elled via OM: Order cancelled - Patient discharged Performed By: #### L 500.2500, L100.0100 ####[facility] [address] [place], [address] WBC Normal 4.4-11.0 [facility] Comment on above: Result Comment: Canc elled via OM: Order cancelled - Patient discharged Performed By: #### L 500.2500, L100.0100 ####[facility] [address] [place], [address] Calcium [Mass/Vol]Ordered By : Kendy Modi on 10-21-2024 Serum or plasma calcium measurement (mass/volume) 9.2 mg/dL 7.6-11.0 [facility] Carbon dioxide, total [Moles /volume] in Central venous bloodOrdered By: Kendy Modi on 10-21-2024 Carbon dioxide, total [Moles/volume] in Central venous blood 25.1 mmol/L 21.0-32.0 [facility] Chloride assayOrdered By: Keerthi Modi on 10-21-2024 Chloride assay 94 mmol/L Low 98-108 [facility] Creatinine [Mass/Vol]Ordered By: Kendy Modi on 10-21-2024 Serum creatinine measurement (mass/volume) 1.23 mg/dL High 0.70-1.20 [facility] GFR/1.73 sq M.predicted ivette g non-blacks MDRD (S/P/Bld) [Vol rate/Area]Ordered By: Kendy Modi on 10-21-2024 Glomerular filtration rate (GFR) estimation/1.73 sq m using serum, plasma, or whole b 65 >60 [facility] Glucose [Mass/Vol]Ordered By : Kendy Modi on 10-21-2024 Serum glucose measurement (mass/volume) 121 mg/dL High 70-99 [facility] Potassium (Unsp spec) [Mass/ Vol]Ordered By: Kendy Modi on 10-21-2024 Potassium measurement (mass/volume) 3.5 mmol/L 3.3-5.1 [facility] Sodium levelOrdered By: Kendy Modi on 10-21-2024 Sodium level 139 mmol/L 133-145 [facility] Urea nitrogen [Mass/Vol]Orde red By: Kendy Modi on 10-21-2024 Serum or plasma urea nitrogen measurement (mass/volume) 17 mg/dL - [facility] Basic Metabolic Profile (BMP )on 10-20-2024 BUN Normal - [facility] Comment on above: Result Comment: Canc elled via OM: Order cancelled - Patient discharged Performed By: #### L 500.2500, L100.0100 ####[facility] [address] [place], [address] BUN/CRE Normal 10-20 [facility] Comment on above: Result Comment: Canc elled via OM: Order cancelled - Patient discharged Performed By: #### L 500.2500, L100.0100 ####[facility] [address] [place], [address] Calcium Normal 7.6-11.0 [facility] Comment on above: Result Comment: Canc elled via OM: Order cancelled - Patient discharged Performed By: #### L 500.2500, L100.0100 ####[facility] [address] [place], [address] CL Normal 98-108 [facility] Comment on above: Result Comment: Canc elled via OM: Order cancelled - Patient discharged Performed By: #### L 500.2500, L100.0100 ####[facility] [address] [place], [address] CO2 Normal 21.0-32.0 [facility] Comment on above: Result Comment: Canc elled via OM: Order cancelled - Patient discharged Performed By: #### L 500.2500, L100.0100 ####[facility] [address] [place], [address] CREAT,SERUM Normal 0.70-1.20 [facility] Comment on above: Result Comment: Canc elled via OM: Order cancelled - Patient discharged Performed By: #### L 500.2500, L100.0100 ####[facility] [address] [place], [address] eGFR Normal >60 [facility] Comment on above: Result Comment: Canc elled via OM: Order cancelled - Patient discharged Performed By: #### L 500.2500, L100.0100 ####[facility] [address] [place], [address] GAP Normal 5-15 [facility] Comment on above: Result Comment: Canc elled via OM: Order cancelled - Patient discharged Performed By: #### L 500.2500, L100.0100 ####[facility] [address] [place], [address] GLU Normal 70-99 [facility] Comment on above: Result Comment: Canc elled via OM: Order cancelled - Patient discharged Performed By: #### L 500.2500, L100.0100 ####[facility] [address] [place], [address] Potassium Normal 3.3-5.1 [facility] Comment on above: Result Comment: Canc elled via OM: Order cancelled - Patient discharged Performed By: #### L 500.2500, L100.0100 ####[facility] [address] [place], [address] Basic Metabolic Profile (BMP) Normal 133-145 [facility] Comment on above: Result Comment: Canc elled via OM: Order cancelled - Patient discharged Performed By: #### L 500.2500, L100.0100 ####[facility] [address] [place], [address] CBC W/Diff, Automatedon 03-1 Absolute Neut Normal 2.0-7.7 [facility] Comment on above: Result Comment: Canc elled via OM: Order cancelled - Patient discharged Performed By: #### L 500.2500, L100.0100 ####[facility] [address] [place], [address] HCT Normal 40-54 [facility] Comment on above: Result Comment: Canc elled via OM: Order cancelled - Patient discharged Performed By: #### L 500.2500, L100.0100 ####[facility] [address] [place], [address] HGB Normal 13.0-16.5 [facility] Comment on above: Result Comment: Canc elled via OM: Order cancelled - Patient discharged Performed By: #### L 500.2500, L100.0100 ####[facility] [address] [place], [address] MCH Normal 27.0-32.0 [facility] Comment on above: Result Comment: Canc elled via OM: Order cancelled - Patient discharged Performed By: #### L 500.2500, L100.0100 ####[facility] [address] [place], [address] MCHC Normal 32-36 [facility] Comment on above: Result Comment: Canc elled via OM: Order cancelled - Patient discharged Performed By: #### L 500.2500, L100.0100 ####[facility] [address] [place], [address] MCV Normal 80-94 [facility] Comment on above: Result Comment: Canc elled via OM: Order cancelled - Patient discharged Performed By: #### L 500.2500, L100.0100 ####[facility] [address] [place], [address] NEUT% Normal 47-70 [facility] Comment on above: Result Comment: Canc elled via OM: Order cancelled - Patient discharged Performed By: #### L 500.2500, L100.0100 ####[facility] [address] [place], [address] PLT Normal 150-450 [facility] Comment on above: Result Comment: Canc elled via OM: Order cancelled - Patient discharged Performed By: #### L 500.2500, L100.0100 ####[facility] [address] [place], [address] RBC Normal 4.6-6.2 [facility] Comment on above: Result Comment: Canc elled via OM: Order cancelled - Patient discharged Performed By: #### L 500.2500, L100.0100 ####[facility] [address] [place], [address] RDW CV Normal 11.6-14.6 [facility] Comment on above: Result Comment: Canc elled via OM: Order cancelled - Patient discharged Performed By: #### L 500.2500, L100.0100 ####[facility] [address] [place], [address] RDW SD Normal 35.1-43.9 [facility] Comment on above: Result Comment: Canc elled via OM: Order cancelled - Patient discharged Performed By: #### L 500.2500, L100.0100 ####[facility] [address] [place], [address] WBC Normal 4.4-11.0 [facility] Comment on above: Result Comment: Canc elled via OM: Order cancelled - Patient discharged Performed By: #### L 500.2500, L100.0100 ####[facility] [address] [place], [address] Basic Metabolic Profile (BMP )on 10-19-2024 BUN Normal 4-19 [facility] Comment on above: Result Comment: Canc elled via OM: Order cancelled - Patient discharged Performed By: #### L 500.2500, L100.0100 ####[facility] [address] [place], [address] BUN/CRE Normal 10-20 [facility] Comment on above: Result Comment: Canc elled via OM: Order cancelled - Patient discharged Performed By: #### L 500.2500, L100.0100 ####[facility] [address] [place], [address] Calcium Normal 7.6-11.0 [facility] Comment on above: Result Comment: Canc elled via OM: Order cancelled - Patient discharged Performed By: #### L 500.2500, L100.0100 ####[facility] [address] [place], [address] CL Normal 98-108 [facility] Comment on above: Result Comment: Canc elled via OM: Order cancelled - Patient discharged Performed By: #### L 500.2500, L100.0100 ####[facility] [address] [place], [address] CO2 Normal 21.0-32.0 [facility] Comment on above: Result Comment: Canc elled via OM: Order cancelled - Patient discharged Performed By: #### L 500.2500, L100.0100 ####[facility] [address] [place], [address] CREAT,SERUM Normal 0.70-1.20 [facility] Comment on above: Result Comment: Canc elled via OM: Order cancelled - Patient discharged Performed By: #### L 500.2500, L100.0100 ####[facility] [address] [place], [address] eGFR Normal >60 [facility] Comment on above: Result Comment: Canc elled via OM: Order cancelled - Patient discharged Performed By: #### L 500.2500, L100.0100 ####[facility] [address] [place], [address] GAP Normal 5-15 [facility] Comment on above: Result Comment: Canc elled via OM: Order cancelled - Patient discharged Performed By: #### L 500.2500, L100.0100 ####[facility] [address] [place], [address] GLU Normal 70-99 [facility] Comment on above: Result Comment: Canc elled via OM: Order cancelled - Patient discharged Performed By: #### L 500.2500, L100.0100 ####[facility] [address] [place], [address] Potassium Normal 3.3-5.1 [facility] Comment on above: Result Comment: Canc elled via OM: Order cancelled - Patient discharged Performed By: #### L 500.2500, L100.0100 ####[facility] [address] [place], [address] Basic Metabolic Profile (BMP) Normal 133-145 [facility] Comment on above: Result Comment: Canc elled via OM: Order cancelled - Patient discharged Performed By: #### L 500.2500, L100.0100 ####[facility] [address] [place], [address] CBC W/Diff, Automatedon 03-1 Absolute Neut Normal 2.0-7.7 [facility] Comment on above: Result Comment: Canc elled via OM: Order cancelled - Patient discharged Performed By: #### L 500.2500, L100.0100 ####[facility] [address] [place], [address] HCT Normal 40-54 [facility] Comment on above: Result Comment: Canc elled via OM: Order cancelled - Patient discharged Performed By: #### L 500.2500, L100.0100 ####[facility] [address] [place], [address] HGB Normal 13.0-16.5 [facility] Comment on above: Result Comment: Canc elled via OM: Order cancelled - Patient discharged Performed By: #### L 500.2500, L100.0100 ####[facility] [address] [place], [address] MCH Normal 27.0-32.0 [facility] Comment on above: Result Comment: Canc elled via OM: Order cancelled - Patient discharged Performed By: #### L 500.2500, L100.0100 ####[facility] [address] [place], [address] MCHC Normal 32-36 [facility] Comment on above: Result Comment: Canc elled via OM: Order cancelled - Patient discharged Performed By: #### L 500.2500, L100.0100 ####[facility] [address] [place], [address] MCV Normal 80-94 [facility] Comment on above: Result Comment: Canc elled via OM: Order cancelled - Patient discharged Performed By: #### L 500.2500, L100.0100 ####[facility] [address] [place], [address] NEUT% Normal 47-70 [facility] Comment on above: Result Comment: Canc elled via OM: Order cancelled - Patient discharged Performed By: #### L 500.2500, L100.0100 ####[facility] [address] [place], [address] PLT Normal 150-450 [facility] Comment on above: Result Comment: Canc elled via OM: Order cancelled - Patient discharged Performed By: #### L 500.2500, L100.0100 ####[facility] [address] [place], [address] RBC Normal 4.6-6.2 [facility] Comment on above: Result Comment: Canc elled via OM: Order cancelled - Patient discharged Performed By: #### L 500.2500, L100.0100 ####[facility] [address] [place], [address] RDW CV Normal 11.6-14.6 [facility] Comment on above: Result Comment: Canc elled via OM: Order cancelled - Patient discharged Performed By: #### L 500.2500, L100.0100 ####[facility] [address] [place], [address] RDW SD Normal 35.1-43.9 [facility] Comment on above: Result Comment: Canc elled via OM: Order cancelled - Patient discharged Performed By: #### L 500.2500, L100.0100 ####[facility] [address] [place], [address] WBC Normal 4.4-11.0 [facility] Comment on above: Result Comment: Canc elled via OM: Order cancelled - Patient discharged Performed By: #### L 500.2500, L100.0100 ####[facility] [address] [place], [address] Absolute neutrophil countOrd ered By: Nicole Smith on 10-18-2024 Absolute neutrophil count 5.8 X10^3/uL 2.0-7.7 [facility] Anion gap [Moles/Vol]Ordered By: Nicole Smith on 10-18-2024 Anion gap in Serum or Plasma 13 5-15 [facility] BUN/creatinine ratioOrdered By: Nicole Smith on 10-18-2024 BUN/creatinine ratio 17.1 RATIO 10-20 [facility] Basic Metabolic Profile (BMP )on 10-18-2024 BUN/CRE 17.1 RATIO Normal -20 [facility] Comment on above: Performed By: #### L 500.2500, L100.0100 ####[facility] [address] [place], [address] Calcium [Mass/Vol] 9.1 mg/dL Normal 7.6-11.0 [facility] Comment on above: Performed By: #### L 500.2500, L100.0100 ####[facility] [address] [place], [address] Chloride [Moles/Vol] 98 mmol/L Normal 98-108 [facility] Comment on above: Performed By: #### L 500.2500, L100.0100 ####[facility] [address] [place], [address] CO2 [Moles/Vol] 26.0 mmol/L Normal 21.0-32.0 [facility] Comment on above: Performed By: #### L 500.2500, L100.0100 ####[facility] [address] [place], [address] Creatinine [Mass/Vol] 0.81 mg/dL Normal 0.70-1.20 [facility] Comment on above: Performed By: #### L 500.2500, L100.0100 ####[facility] [address] [place], [address] ECRCL 83.87 ml/min Normal 50-250 [facility] Comment on above: Performed By: #### L 500.2500, L100.0100 ####[facility] [address] [place], [address] GAP 13 Normal 5-15 [facility] Comment on above: Performed By: #### L 500.2500, L100.0100 ####[facility] [address] [place], [address] GFR/1.73 sq M.predicted among non-blacks MDRD (S/P/Bld) [Vol rate/Area] 97 mL/min/{1.73_m2} Normal >60 [facility] Comment on above: Result Comment: mL/m in/1.73m2 CKD-EPI Creatinine Equation (2020) Performed By: #### L 500.2500, L100.0100 ####[facility] [address] [place], [address] Glucose [Mass/Vol] 153 mg/dL High 70-99 [facility] Comment on above: Performed By: #### L 500.2500, L100.0100 ####[facility] [address] [place], [address] Potassium [Moles/Vol] 4.3 mmol/L Normal 3.3-5.1 [facility] Comment on above: Performed By: #### L 500.2500, L100.0100 ####[facility] [address] [place], [address] Sodium [Moles/Vol] 136 mmol/L Normal 133-145 [facility] Comment on above: Performed By: #### L 500.2500, L100.0100 ####[facility] [address] [place], [address] Urea nitrogen [Mass/Vol] 14 mg/dL Normal 4-19 [facility] Comment on above: Performed By: #### L 500.2500, L100.0100 ####[facility] [address] [place], [address] Basophil percentageOrdered B y: Nicole Smith on 10-18-2024 Basophil percentage 0.1 % 0-1 [facility] Bedside Glucoseon 10-18-2024 FINGERSTICK GLU 193 mg/dL High 74-106 [facility] Comment on above: Result Comment: ORLY GEMENT OF PATIENT CARE PER NURSING PROTOCOL Performed By: #### L 501.080 ####[facility] [address] [place], [address] FINGERSTICK GLU 134 mg/dL High 74-106 [facility] Comment on above: Result Comment: ORLY GEMENT OF PATIENT CARE PER NURSING PROTOCOL Performed By: #### L 501.080 ####[facility] [address] [place], [address] CBC W/Diff, Automatedon 10-05 Absolute Lymph 0.78 X10 3/uL Low 0.83-4.51 [facility] Comment on above: Performed By: #### L 500.2500, L100.0100 ####[facility] [address] [place], [address] Absolute Neut 5.8 X10 3/uL Normal 2.0-7.7 [facility] Comment on above: Performed By: #### L 500.2500, L100.0100 ####[facility] [address] [place], [address] Basophils/100 WBC (Bld) 0.1 % Normal 0-1 [facility] Comment on above: Performed By: #### L 500.2500, L100.0100 ####[facility] [address] [place], [address] Eosinophils/100 WBC (Bld) 2.2 % Normal 0-5 [facility] Comment on above: Performed By: #### L 500.2500, L100.0100 ####[facility] [address] [place], [address] Erythrocyte distribution width (RBC) [Ratio] 14.6 % Normal 11.6-14.6 [facility] Comment on above: Performed By: #### L 500.2500, L100.0100 ####[facility] [address] [place], [address] Hematocrit (Bld) [Volume fraction] 30.5 % Low 40-54 [facility] Comment on above: Performed By: #### L 500.2500, L100.0100 ####[facility] [address] [place], [address] Hemoglobin (Bld) [Mass/Vol] 9.9 g/dL Low 13.0-16.5 [facility] Comment on above: Performed By: #### L 500.2500, L100.0100 ####[facility] [address] [place], [address] IG% 0.400 Normal 0.0-0.9 [facility] Comment on above: Result Comment: IG% - Immature Granulocytes (promyelocytes, myelocytes andmetamyelocytes) > 1% indicates that a LEFT SHIFT is Present. Performed By: #### L 500.2500, L100.0100 ####[facility] [address] [place], [address] Lymphocytes/100 WBC (Bld) 10.3 % Low 19-41 [facility] Comment on above: Performed By: #### L 500.2500, L100.0100 ####[facility] [address] [place], [address] MCH (RBC) [Entitic mass] 28.5 pg Normal 27.0-32.0 [facility] Comment on above: Performed By: #### L 500.2500, L100.0100 ####[facility] [address] [place], [address] MCHC (RBC) [Mass/Vol] 32.5 g/dL Normal 32-36 [facility] Comment on above: Performed By: #### L 500.2500, L100.0100 ####[facility] [address] [place], [address] MCV (RBC) [Entitic vol] 87.9 fL Normal 80-94 [facility] Comment on above: Performed By: #### L 500.2500, L100.0100 ####[facility] [address] [place], [address] Monocytes/100 WBC (Bld) 10.9 % High 0-10 [facility] Comment on above: Performed By: #### L 500.2500, L100.0100 ####[facility] [address] [place], [address] Neutrophils/100 WBC (Bld) 76.1 % High 47-70 [facility] Comment on above: Performed By: #### L 500.2500, L100.0100 ####[facility] [address] [place], [address] Nucleated RBC (Bld) [#/Vol] 0 10*3/uL Normal 0-5 [facility] Comment on above: Performed By: #### L 500.2500, L100.0100 ####[facility] [address] [place], [address] Platelet mean volume (Bld) [Entitic vol] 9.9 fL Normal 6.2-12.0 [facility] Comment on above: Performed By: #### L 500.2500, L100.0100 ####[facility] [address] [place], [address] Platelets (Bld) [#/Vol] 293 10*3/uL Normal 150-450 [facility] Comment on above: Performed By: #### L 500.2500, L100.0100 ####[facility] [address] [place], [address] RBC (Bld) [#/Vol] 3.47 10*6/uL Low 4.6-6.2 [facility] Comment on above: Performed By: #### L 500.2500, L100.0100 ####[facility] [address] [place], [address] RDW SD 47.2 fl High 35.1-43.9 [facility] Comment on above: Performed By: #### L 500.2500, L100.0100 ####[facility] [address] [place], [address] WBC (Bld) [#/Vol] 7.6 10*3/uL Normal 4.4-11.0 [facility] Comment on above: Performed By: #### L 500.2500, L100.0100 ####[facility] [address] [place], [address] Calcium [Mass/Vol]Ordered By : Nicole Smith on 10-18-2024 Serum or plasma calcium measurement (mass/volume) 9.1 mg/dL 7.6-11.0 [facility] Carbon dioxide, total [Moles /volume] in Central venous bloodOrdered By: Nicole Smith on 10-18-2024 Carbon dioxide, total [Moles/volume] in Central venous blood 26.0 mmol/L 21.0-32.0 [facility] Chloride assayOrdered By: Vivian Smith on 10-18-2024 Chloride assay 98 mmol/L 98-108 [facility] Creatinine [Mass/Vol]Ordered By: Nicole Smith on 10-18-2024 Serum creatinine measurement (mass/volume) 0.81 mg/dL 0.70-1.20 [facility] Discharge Instructionon 10-05 Discharge Instruction Normal [facility] Eosinophil percentageOrdered By: Nicole Smith on 10-18-2024 Eosinophil percentage 2.2 % 0-5 [facility] Erythrocyte distribution wid th (RBC) [Ratio]Ordered By: Nicole Smith on 10-18-2024 Erythrocyte distribution width ratio 14.6 % 11.6-14.6 [facility] Erythrocyte distribution wid th standard deviationOrdered By: Nicole Smith on 10-18-2024 Erythrocyte distribution width standard deviation 47.2 fl High 35.1-43.9 [facility] Estimation of creatinine pedro luis aranceOrdered By: Nicole Smith on 10-18-2024 Estimation of creatinine clearance 83.87 ml/min 50-250 [facility] GFR/1.73 sq M.predicted ivette g non-blacks MDRD (S/P/Bld) [Vol rate/Area]Ordered By: Nicole Smith on 10-18-2024 Glomerular filtration rate (GFR) estimation/1.73 sq m using serum, plasma, or whole b 97 >60 [facility] Glucose [Mass/Vol]Ordered By : Nicole Smith on 10-18-2024 Serum glucose measurement (mass/volume) 153 mg/dL High 70-99 [facility] Glucose measurement at bedsi deOrdered By: Nicole Smith on 10-18-2024 Glucose measurement at bedside 193 mg/dL High 74-106 [facility] Hematocrit Auto (Bld) [Volum e fraction]Ordered By: Nicole Smith on 10-18-2024 Automated blood hematocrit (percentage) 30.5 % Low 40-54 [facility] Hemoglobin measurementOrdere d By: Nicole Smith on 10-18-2024 Hemoglobin measurement 9.9 g/dL Low 13.0-16.5 [facility] Immature granulocytes/100 WB C Auto (Bld)Ordered By: Nicole Smith on 10-18-2024 Automated immature granulocyte percentage 0.400 % 0.0-0.9 [facility] Lymphocytes Auto (Unsp spec) [#/Vol]Ordered By: Nicole Smith on 10-18-2024 Absolute lymphocyte count 0.78 X10^3/uL Low 0.83-4.51 [facility] Lymphocytes/100 WBC Auto (Un sp spec)Ordered By: Nicole Smith on 10-18-2024 Automated lymphocyte count as percentage of total leukocytes 10.3 % Low 19-41 [facility] MCV (RBC) [Entitic vol]Order ed By: Nicole Smith on 10-18-2024 MCV (mean corpuscular volume) determination 87.9 fL 80-94 [facility] Mean corpuscular hemoglobin (MCH) determinationOrdered By: Nicole Smith on 10-18-2024 Mean corpuscular hemoglobin (MCH) determination 28.5 pg 27.0-32.0 [facility] Mean corpuscular hemoglobin concentration (MCHC) determinationOrdered By: Nicole Smith on 10-18-2024 Mean corpuscular hemoglobin concentration (MCHC) determination 32.5 g/dL 32-36 [facility] Mean platelet volume determi nationOrdered By: Nicole Smith on 10-18-2024 Mean platelet volume determination 9.9 fl 6.2-12.0 [facility] Monocyte percentageOrdered B y: Nicole Smith on 10-18-2024 Monocyte percentage 10.9 % High 0-10 [facility] Neutrophil percentageOrdered By: Nicole Smith on 10-18-2024 Neutrophil percentage 76.1 % High 47-70 [facility] Nucleated red blood cell per centageOrdered By: Nicole Smith on 10-18-2024 Nucleated red blood cell percentage 0 % 0-5 [facility] Platelet countOrdered By: Vivian Smith on 10-18-2024 Platelet count 293 K/mm3 150-450 [facility] Potassium (Unsp spec) [Mass/ Vol]Ordered By: Nicole Smith on 10-18-2024 Potassium measurement (mass/volume) 4.3 mmol/L 3.3-5.1 [facility] RBC Auto (Bld) [#/Vol]Ordere d By: Nicole Smith on 10-18-2024 Automated blood erythrocyte count 3.47 M/mm3 Low 4.6-6.2 [facility] Sodium levelOrdered By: Dasha Smith on 10-18-2024 Sodium level 136 mmol/L 133-145 [facility] Urea nitrogen [Mass/Vol]Orde red By: Nicole Smith on 10-18-2024 Serum or plasma urea nitrogen measurement (mass/volume) 14 mg/dL 4-19 [facility] White blood cell (WBC) count Ordered By: Nicole Smith on 10-18-2024 White blood cell (WBC) count 7.6 K/mm3 4.4-11.0 [facility] Basic Metabolic Profile (BMP )on 10-17-2024 BUN/CRE 21.6 RATIO High 10-20 [facility] Comment on above: Performed By: #### L 500.2500, L100.0100 ####[facility] [address] [place], [address] Calcium [Mass/Vol] 8.9 mg/dL Normal 7.6-11.0 [facility] Comment on above: Performed By: #### L 500.2500, L100.0100 ####[facility] [address] [place], [address] Chloride [Moles/Vol] 96 mmol/L Low 98-108 [facility] Comment on above: Performed By: #### L 500.2500, L100.0100 ####[facility] [address] [place], [address] CO2 [Moles/Vol] 27.8 mmol/L Normal 21.0-32.0 [facility] Comment on above: Performed By: #### L 500.2500, L100.0100 ####[facility] [address] [place], [address] Creatinine [Mass/Vol] 0.85 mg/dL Normal 0.70-1.20 [facility] Comment on above: Performed By: #### L 500.2500, L100.0100 ####[facility] [address] [place], [address] ECRCL 79.92 ml/min Normal 50-250 [facility] Comment on above: Performed By: #### L 500.2500, L100.0100 ####[facility] [address] [place], [address] GAP 13 Normal 5-15 [facility] Comment on above: Performed By: #### L 500.2500, L100.0100 ####[facility] [address] [place], [address] GFR/1.73 sq M.predicted among non-blacks MDRD (S/P/Bld) [Vol rate/Area] 96 mL/min/{1.73_m2} Normal >60 [facility] Comment on above: Result Comment: mL/m in/1.73m2 CKD-EPI Creatinine Equation (2020) Performed By: #### L 500.2500, L100.0100 ####[facility] [address] [place], [address] Glucose [Mass/Vol] 174 mg/dL High 70-99 [facility] Comment on above: Performed By: #### L 500.2500, L100.0100 ####[facility] [address] [place], [address] Potassium [Moles/Vol] 4.1 mmol/L Normal 3.3-5.1 [facility] Comment on above: Performed By: #### L 500.2500, L100.0100 ####[facility] [address] [place], [address] Sodium [Moles/Vol] 137 mmol/L Normal 133-145 [facility] Comment on above: Performed By: #### L 500.2500, L100.0100 ####[facility] [address] [place], [address] Urea nitrogen [Mass/Vol] 18 mg/dL Normal 4-19 [facility] Comment on above: Performed By: #### L 500.2500, L100.0100 ####[facility] [address] [place], [address] Bedside Glucoseon 10-17-2024 FINGERSTICK GLU 231 mg/dL High 74-106 [facility] Comment on above: Result Comment: ORLY GEMENT OF PATIENT CARE PER NURSING PROTOCOL Performed By: #### L 501.080 ####[facility] [address] [place], [address] FINGERSTICK GLU 158 mg/dL High 74-106 [facility] Comment on above: Result Comment: ORLY GEMENT OF PATIENT CARE PER NURSING PROTOCOL Performed By: #### L 501.080 ####[facility] [address] [place], [address] FINGERSTICK GLU 191 mg/dL High 74-106 [facility] Comment on above: Result Comment: ORLY GEMENT OF PATIENT CARE PER NURSING PROTOCOL Performed By: #### L 501.080 ####[facility] [address] [place], [address] FINGERSTICK GLU 137 mg/dL High 74-106 [facility] Comment on above: Result Comment: ORLY GEMENT OF PATIENT CARE PER NURSING PROTOCOL Performed By: #### L 501.080 ####[facility] [address] [place], [address] CBC W/Diff, Automatedon 10-05 Absolute Lymph 0.54 X10 3/uL Low 0.83-4.51 [facility] Comment on above: Performed By: #### L 500.2500, L100.0100 ####[facility] [address] [place], [address] Absolute Neut 5.3 X10 3/uL Normal 2.0-7.7 [facility] Comment on above: Performed By: #### L 500.2500, L100.0100 ####[facility] [address] [place], [address] Basophils/100 WBC (Bld) 0.2 % Normal 0-1 [facility] Comment on above: Performed By: #### L 500.2500, L100.0100 ####[facility] [address] [place], [address] Eosinophils/100 WBC (Bld) 2.1 % Normal 0-5 [facility] Comment on above: Performed By: #### L 500.2500, L100.0100 ####[facility] [address] [place], [address] Erythrocyte distribution width (RBC) [Ratio] 14.6 % Normal 11.6-14.6 [facility] Comment on above: Performed By: #### L 500.2500, L100.0100 ####[facility] [address] [place], [address] Hematocrit (Bld) [Volume fraction] 32.4 % Low 40-54 [facility] Comment on above: Performed By: #### L 500.2500, L100.0100 ####[facility] [address] [place], [address] Hemoglobin (Bld) [Mass/Vol] 10.5 g/dL Low 13.0-16.5 [facility] Comment on above: Performed By: #### L 500.2500, L100.0100 ####[facility] [address] [place], [address] IG% 0.600 Normal 0.0-0.9 [facility] Comment on above: Result Comment: IG% - Immature Granulocytes (promyelocytes, myelocytes andmetamyelocytes) > 1% indicates that a LEFT SHIFT is Present. Performed By: #### L 500.2500, L100.0100 ####[facility] [address] [place], [address] Lymphocytes/100 WBC (Bld) 8.1 % Low 19-41 [facility] Comment on above: Performed By: #### L 500.2500, L100.0100 ####[facility] [address] [place], [address] MCH (RBC) [Entitic mass] 28.8 pg Normal 27.0-32.0 [facility] Comment on above: Performed By: #### L 500.2500, L100.0100 ####[facility] [address] [place], [address] MCHC (RBC) [Mass/Vol] 32.4 g/dL Normal 32-36 [facility] Comment on above: Performed By: #### L 500.2500, L100.0100 ####[facility] [address] [place], [address] MCV (RBC) [Entitic vol] 88.8 fL Normal 80-94 [facility] Comment on above: Performed By: #### L 500.2500, L100.0100 ####[facility] [address] [place], [address] Monocytes/100 WBC (Bld) 9.6 % Normal 0-10 [facility] Comment on above: Performed By: #### L 500.2500, L100.0100 ####[facility] [address] [place], [address] Neutrophils/100 WBC (Bld) 79.4 % High 47-70 [facility] Comment on above: Performed By: #### L 500.2500, L100.0100 ####[facility] [address] [place], [address] Nucleated RBC (Bld) [#/Vol] 0 10*3/uL Normal 0-5 [facility] Comment on above: Performed By: #### L 500.2500, L100.0100 ####[facility] [address] [place], [address] Platelet mean volume (Bld) [Entitic vol] 10.0 fL Normal 6.2-12.0 [facility] Comment on above: Performed By: #### L 500.2500, L100.0100 ####[facility] [address] [place], [address] Platelets (Bld) [#/Vol] 309 10*3/uL Normal 150-450 [facility] Comment on above: Performed By: #### L 500.2500, L100.0100 ####[facility] [address] [place], [address] RBC (Bld) [#/Vol] 3.65 10*6/uL Low 4.6-6.2 [facility] Comment on above: Performed By: #### L 500.2500, L100.0100 ####[facility] [address] [place], [address] RDW SD 47.1 fl High 35.1-43.9 [facility] Comment on above: Performed By: #### L 500.2500, L100.0100 ####[facility] [address] [place], [address] WBC (Bld) [#/Vol] 6.7 10*3/uL Normal 4.4-11.0 [facility] Comment on above: Performed By: #### L 500.2500, L100.0100 ####[facility] [address] [place], [address] Basic Metabolic Profile (BMP )on 10-16-2024 BUN/CRE 26.4 RATIO High 10-20 [facility] Comment on above: Performed By: #### L 500.2500, L100.0100 ####[facility] [address] [place], [address] Calcium [Mass/Vol] 8.5 mg/dL Normal 7.6-11.0 [facility] Comment on above: Performed By: #### L 500.2500, L100.0100 ####[facility] [address] [place], [address] Chloride [Moles/Vol] 97 mmol/L Low 98-108 [facility] Comment on above: Performed By: #### L 500.2500, L100.0100 ####[facility] [address] [place], [address] CO2 [Moles/Vol] 29.3 mmol/L Normal 21.0-32.0 [facility] Comment on above: Performed By: #### L 500.2500, L100.0100 ####[facility] [address] [place], [address] Creatinine [Mass/Vol] 0.91 mg/dL Normal 0.70-1.20 [facility] Comment on above: Performed By: #### L 500.2500, L100.0100 ####[facility] [address] [place], [address] ECRCL 74.66 ml/min Normal 50-250 [facility] Comment on above: Performed By: #### L 500.2500, L100.0100 ####[facility] [address] [place], [address] GAP 11 Normal 5-15 [facility] Comment on above: Performed By: #### L 500.2500, L100.0100 ####[facility] [address] [place], [address] GFR/1.73 sq M.predicted among non-blacks MDRD (S/P/Bld) [Vol rate/Area] 93 mL/min/{1.73_m2} Normal >60 [facility] Comment on above: Result Comment: mL/m in/1.73m2 CKD-EPI Creatinine Equation (2020) Performed By: #### L 500.2500, L100.0100 ####[facility] [address] [place], [address] Glucose [Mass/Vol] 151 mg/dL High 70-99 [facility] Comment on above: Performed By: #### L 500.2500, L100.0100 ####[facility] [address] [place], [address] Potassium [Moles/Vol] 4.0 mmol/L Normal 3.3-5.1 [facility] Comment on above: Performed By: #### L 500.2500, L100.0100 ####[facility] [address] [place], [address] Sodium [Moles/Vol] 138 mmol/L Normal 133-145 [facility] Comment on above: Performed By: #### L 500.2500, L100.0100 ####[facility] [address] [place], [address] Urea nitrogen [Mass/Vol] 24 mg/dL High 4-19 [facility] Comment on above: Performed By: #### L 500.2500, L100.0100 ####[facility] [address] [place], [address] Bedside Glucoseon 10-16-2024 FINGERSTICK GLU 149 mg/dL High 74-106 [facility] Comment on above: Result Comment: ORLY DELGADILLO OF PATIENT CARE PER NURSING PROTOCOL Performed By: #### L 501.080 ####[facility] [address] [place], [address] FINGERSTICK GLU 204 mg/dL High 74-106 [facility] Comment on above: Result Comment: ORLY GEMENT OF PATIENT CARE PER NURSING PROTOCOL Performed By: #### L 501.080 ####[facility] [address] [place], [address] FINGERSTICK GLU 165 mg/dL High 74-106 [facility] Comment on above: Result Comment: ORLY GEMENT OF PATIENT CARE PER NURSING PROTOCOL Performed By: #### L 501.080 ####[facility] [address] [place], [address] FINGERSTICK GLU 136 mg/dL High 74-106 [facility] Comment on above: Result Comment: ORLY GEMENT OF PATIENT CARE PER NURSING PROTOCOL Performed By: #### L 501.080 ####[facility] [address] [place], [address] FINGERSTICK GLU 196 mg/dL High 74-106 [facility] Comment on above: Result Comment: ORLY GEMENT OF PATIENT CARE PER NURSING PROTOCOL Performed By: #### L 501.080 ####[facility] [address] [place], [address] CBC W/Diff, Automatedon 10-05 Absolute Lymph 0.78 X10 3/uL Low 0.83-4.51 [facility] Comment on above: Performed By: #### L 500.2500, L100.0100 ####[facility] [address] [place], [address] Absolute Neut 4.2 X10 3/uL Normal 2.0-7.7 [facility] Comment on above: Performed By: #### L 500.2500, L100.0100 ####[facility] [address] [place], [address] Basophils/100 WBC (Bld) 0.3 % Normal 0-1 [facility] Comment on above: Performed By: #### L 500.2500, L100.0100 ####[facility] [address] [place], [address] Eosinophils/100 WBC (Bld) 2.8 % Normal 0-5 [facility] Comment on above: Performed By: #### L 500.2500, L100.0100 ####[facility] [address] [place], [address] Erythrocyte distribution width (RBC) [Ratio] 14.8 % High 11.6-14.6 [facility] Comment on above: Performed By: #### L 500.2500, L100.0100 ####[facility] [address] [place], [address] Hematocrit (Bld) [Volume fraction] 30.5 % Low 40-54 [facility] Comment on above: Performed By: #### L 500.2500, L100.0100 ####[facility] [address] [place], [address] Hemoglobin (Bld) [Mass/Vol] 10.1 g/dL Low 13.0-16.5 [facility] Comment on above: Performed By: #### L 500.2500, L100.0100 ####[facility] [address] [place], [address] IG% 0.500 Normal 0.0-0.9 [facility] Comment on above: Result Comment: IG% - Immature Granulocytes (promyelocytes, myelocytes andmetamyelocytes) > 1% indicates that a LEFT SHIFT is Present. Performed By: #### L 500.2500, L100.0100 ####[facility] [address] [place], [address] Lymphocytes/100 WBC (Bld) 12.9 % Low 19-41 [facility] Comment on above: Performed By: #### L 500.2500, L100.0100 ####[facility] [address] [place], [address] MCH (RBC) [Entitic mass] 28.9 pg Normal 27.0-32.0 [facility] Comment on above: Performed By: #### L 500.2500, L100.0100 ####[facility] [address] [place], [address] MCHC (RBC) [Mass/Vol] 33.1 g/dL Normal 32-36 [facility] Comment on above: Performed By: #### L 500.2500, L100.0100 ####[facility] [address] [place], [address] MCV (RBC) [Entitic vol] 87.4 fL Normal 80-94 [facility] Comment on above: Performed By: #### L 500.2500, L100.0100 ####[facility] [address] [place], [address] Monocytes/100 WBC (Bld) 13.8 % High 0-10 [facility] Comment on above: Performed By: #### L 500.2500, L100.0100 ####[facility] [address] [place], [address] Neutrophils/100 WBC (Bld) 69.7 % Normal 47-70 [facility] Comment on above: Performed By: #### L 500.2500, L100.0100 ####[facility] [address] [place], [address] Nucleated RBC (Bld) [#/Vol] 0 10*3/uL Normal 0-5 [facility] Comment on above: Performed By: #### L 500.2500, L100.0100 ####[facility] [address] [place], [address] Platelet mean volume (Bld) [Entitic vol] 10.0 fL Normal 6.2-12.0 [facility] Comment on above: Performed By: #### L 500.2500, L100.0100 ####[facility] [address] [place], [address] Platelets (Bld) [#/Vol] 266 10*3/uL Normal 150-450 [facility] Comment on above: Performed By: #### L 500.2500, L100.0100 ####[facility] [address] [place], [address] RBC (Bld) [#/Vol] 3.49 10*6/uL Low 4.6-6.2 [facility] Comment on above: Performed By: #### L 500.2500, L100.0100 ####[facility] [address] [place], [address] RDW SD 47.4 fl High 35.1-43.9 [facility] Comment on above: Performed By: #### L 500.2500, L100.0100 ####[facility] [address] [place], [address] WBC (Bld) [#/Vol] 6.1 10*3/uL Normal 4.4-11.0 [facility] Comment on above: Performed By: #### L 500.2500, L100.0100 ####[facility] [address] [place], [address] Basic Metabolic Profile (BMP )on 10-15-2024 BUN/CRE 36.8 RATIO High 10-20 [facility] Comment on above: Performed By: #### L 500.2500, L100.0100 ####[facility] [address] [place], [address] Calcium [Mass/Vol] 8.8 mg/dL Normal 7.6-11.0 [facility] Comment on above: Performed By: #### L 500.2500, L100.0100 ####[facility] [address] [place], [address] Chloride [Moles/Vol] 99 mmol/L Normal 98-108 [facility] Comment on above: Performed By: #### L 500.2500, L100.0100 ####[facility] [address] [place], [address] CO2 [Moles/Vol] 25.3 mmol/L Normal 21.0-32.0 [facility] Comment on above: Performed By: #### L 500.2500, L100.0100 ####[facility] [address] [place], [address] Creatinine [Mass/Vol] 0.89 mg/dL Normal 0.70-1.20 [facility] Comment on above: Performed By: #### L 500.2500, L100.0100 ####[facility] [address] [place], [address] ECRCL 76.33 ml/min Normal 50-250 [facility] Comment on above: Performed By: #### L 500.2500, L100.0100 ####[facility] [address] [place], [address] GAP 12 Normal 5-15 [facility] Comment on above: Performed By: #### L 500.2500, L100.0100 ####[facility] [address] [place], [address] GFR/1.73 sq M.predicted among non-blacks MDRD (S/P/Bld) [Vol rate/Area] 95 mL/min/{1.73_m2} Normal >60 [facility] Comment on above: Result Comment: mL/m in/1.73m2 CKD-EPI Creatinine Equation (2020) Performed By: #### L 500.2500, L100.0100 ####[facility] [address] [place], [address] Glucose [Mass/Vol] 71 mg/dL Normal 70-99 [facility] Comment on above: Performed By: #### L 500.2500, L100.0100 ####[facility] [address] [place], [address] Potassium [Moles/Vol] 3.6 mmol/L Normal 3.3-5.1 [facility] Comment on above: Performed By: #### L 500.2500, L100.0100 ####[facility] [address] [place], [address] Sodium [Moles/Vol] 137 mmol/L Normal 133-145 [facility] Comment on above: Performed By: #### L 500.2500, L100.0100 ####[facility] [address] [place], [address] Urea nitrogen [Mass/Vol] 33 mg/dL High 4-19 [facility] Comment on above: Performed By: #### L 500.2500, L100.0100 ####[facility] [address] [place], [address] Bedside Glucoseon 10-15-2024 FINGERSTICK GLU 273 mg/dL High 74-106 [facility] Comment on above: Result Comment: ORLY GEMENT OF PATIENT CARE PER NURSING PROTOCOL Performed By: #### L 501.080 ####[facility] [address] [place], [address] FINGERSTICK GLU 179 mg/dL High 74-106 [facility] Comment on above: Result Comment: ORLY GEMENT OF PATIENT CARE PER NURSING PROTOCOL Performed By: #### L 501.080 ####[facility] [address] [place], [address] FINGERSTICK GLU 70 mg/dL Low 74-106 [facility] Comment on above: Result Comment: ORLY GEMENT OF PATIENT CARE PER NURSING PROTOCOL Performed By: #### L 501.080 ####[facility] [address] [place], [address] FINGERSTICK GLU 77 mg/dL Normal 74-106 [facility] Comment on above: Result Comment: ORLY GEMENT OF PATIENT CARE PER NURSING PROTOCOL Performed By: #### L 501.080 ####[facility] [address] [place], [address] FINGERSTICK GLU 97 mg/dL Normal 74-106 [facility] Comment on above: Result Comment: ORLY GEMENT OF PATIENT CARE PER NURSING PROTOCOL Performed By: #### L 501.080 ####[facility] [address] [place], [address] CBC W/Diff, Automatedon 10-05 Absolute Lymph 0.48 X10 3/uL Low 0.83-4.51 [facility] Comment on above: Performed By: #### L 500.2500, L100.0100 ####[facility] [address] [place], [address] Absolute Neut 3.9 X10 3/uL Normal 2.0-7.7 [facility] Comment on above: Performed By: #### L 500.2500, L100.0100 ####[facility] [address] [place], [address] Basophils/100 WBC (Bld) 0.2 % Normal 0-1 [facility] Comment on above: Performed By: #### L 500.2500, L100.0100 ####[facility] [address] [place], [address] Eosinophils/100 WBC (Bld) 3.0 % Normal 0-5 [facility] Comment on above: Performed By: #### L 500.2500, L100.0100 ####[facility] [address] [place], [address] Erythrocyte distribution width (RBC) [Ratio] 14.7 % High 11.6-14.6 [facility] Comment on above: Performed By: #### L 500.2500, L100.0100 ####[facility] [address] [place], [address] Hematocrit (Bld) [Volume fraction] 30.6 % Low 40-54 [facility] Comment on above: Performed By: #### L 500.2500, L100.0100 ####[facility] [address] [place], [address] Hemoglobin (Bld) [Mass/Vol] 10.1 g/dL Low 13.0-16.5 [facility] Comment on above: Performed By: #### L 500.2500, L100.0100 ####[facility] [address] [place], [address] IG% 0.600 Normal 0.0-0.9 [facility] Comment on above: Result Comment: IG% - Immature Granulocytes (promyelocytes, myelocytes andmetamyelocytes) > 1% indicates that a LEFT SHIFT is Present. Performed By: #### L 500.2500, L100.0100 ####[facility] [address] [place], [address] Lymphocytes/100 WBC (Bld) 8.9 % Low 19-41 [facility] Comment on above: Performed By: #### L 500.2500, L100.0100 ####[facility] [address] [place], [address] MCH (RBC) [Entitic mass] 29.0 pg Normal 27.0-32.0 [facility] Comment on above: Performed By: #### L 500.2500, L100.0100 ####[facility] [address] [place], [address] MCHC (RBC) [Mass/Vol] 33.0 g/dL Normal 32-36 [facility] Comment on above: Performed By: #### L 500.2500, L100.0100 ####[facility] [address] [place], [address] MCV (RBC) [Entitic vol] 87.9 fL Normal 80-94 [facility] Comment on above: Performed By: #### L 500.2500, L100.0100 ####[facility] [address] [place], [address] Monocytes/100 WBC (Bld) 14.5 % High 0-10 [facility] Comment on above: Performed By: #### L 500.2500, L100.0100 ####[facility] [address] [place], [address] Neutrophils/100 WBC (Bld) 72.8 % High 47-70 [facility] Comment on above: Performed By: #### L 500.2500, L100.0100 ####[facility] [address] [place], [address] Nucleated RBC (Bld) [#/Vol] 0 10*3/uL Normal 0-5 [facility] Comment on above: Performed By: #### L 500.2500, L100.0100 ####[facility] [address] [place], [address] Platelet mean volume (Bld) [Entitic vol] 10.0 fL Normal 6.2-12.0 [facility] Comment on above: Performed By: #### L 500.2500, L100.0100 ####[facility] [address] [place], [address] Platelets (Bld) [#/Vol] 254 10*3/uL Normal 150-450 [facility] Comment on above: Performed By: #### L 500.2500, L100.0100 ####[facility] [address] [place], [address] RBC (Bld) [#/Vol] 3.48 10*6/uL Low 4.6-6.2 [facility] Comment on above: Performed By: #### L 500.2500, L100.0100 ####[facility] [address] [place], [address] RDW SD 47.1 fl High 35.1-43.9 [facility] Comment on above: Performed By: #### L 500.2500, L100.0100 ####[facility] [address] [place], [address] WBC (Bld) [#/Vol] 5.4 10*3/uL Normal 4.4-11.0 [facility] Comment on above: Performed By: #### L 500.2500, L100.0100 ####[facility] [address] [place], [address] Culture, Blood (WB)on 2024 CUB Blood cultures x2, from two different sites No growth in 5 days. Normal [facility] Comment on above: Performed By: #### L 501.5200, M200.1000, L503.7505, L100.0100, L503.6005, L500.2500, L503.5510, L500.3400 ####[facility] [address] [place], [address] Magnesiumon 10-15-2024 Magnesium [Mass/Vol] 1.5 mg/dL Normal 1.5-2.2 [facility] Comment on above: Performed By: #### L 501.5200 ####[facility] [address] [place], [address] Magnesium (Unsp spec) [Mass/ Vol]Ordered By: Tay Jaquez on 10-15-2024 Magnesium measurement (mass/volume) 1.5 mg/dL 1.5-2.2 [facility] Basic Metabolic Profile (BMP )on 10-14-2024 BUN/CRE 38.9 RATIO High 10-20 [facility] Comment on above: Performed By: #### L 500.2500, L100.0100 ####[facility] [address] [place], [address] Calcium [Mass/Vol] 8.6 mg/dL Normal 7.6-11.0 [facility] Comment on above: Performed By: #### L 500.2500, L100.0100 ####[facility] [address] [place], [address] Chloride [Moles/Vol] 101 mmol/L Normal 98-108 [facility] Comment on above: Performed By: #### L 500.2500, L100.0100 ####[facility] [address] [place], [address] CO2 [Moles/Vol] 20.7 mmol/L Low 21.0-32.0 [facility] Comment on above: Performed By: #### L 500.2500, L100.0100 ####[facility] [address] [place], [address] Creatinine [Mass/Vol] 1.42 mg/dL High 0.70-1.20 [facility] Comment on above: Performed By: #### L 500.2500, L100.0100 ####[facility] [address] [place], [address] ECRCL 47.84 ml/min Low 50-250 [facility] Comment on above: Performed By: #### L 500.2500, L100.0100 ####[facility] [address] [place], [address] GAP 16 High 5-15 [facility] Comment on above: Performed By: #### L 500.2500, L100.0100 ####[facility] [address] [place], [address] GFR/1.73 sq M.predicted among non-blacks MDRD (S/P/Bld) [Vol rate/Area] 54 mL/min/{1.73_m2} Low >60 [facility] Comment on above: Result Comment: mL/m in/1.73m2 CKD-EPI Creatinine Equation (2020) Performed By: #### L 500.2500, L100.0100 ####[facility] [address] [place], [address] Glucose [Mass/Vol] 81 mg/dL Normal 70-99 [facility] Comment on above: Performed By: #### L 500.2500, L100.0100 ####[facility] [address] [place], [address] Potassium [Moles/Vol] 4.2 mmol/L Normal 3.3-5.1 [facility] Comment on above: Performed By: #### L 500.2500, L100.0100 ####[facility] [address] [place], [address] Sodium [Moles/Vol] 137 mmol/L Normal 133-145 [facility] Comment on above: Performed By: #### L 500.2500, L100.0100 ####[facility] [address] [place], [address] Urea nitrogen [Mass/Vol] 55 mg/dL High 4-19 [facility] Comment on above: Performed By: #### L 500.2500, L100.0100 ####[facility] [address] [place], [address] Bedside Glucoseon 10-14-2024 FINGERSTICK GLU 98 mg/dL Normal 74-106 [facility] Comment on above: Result Comment: ORLY GEMENT OF PATIENT CARE PER NURSING PROTOCOL Performed By: #### L 501.080 ####[facility] [address] [place], [address] FINGERSTICK GLU 161 mg/dL High 74-106 [facility] Comment on above: Result Comment: ORLY GEMENT OF PATIENT CARE PER NURSING PROTOCOL Performed By: #### L 501.080 ####[facility] [address] [place], [address] FINGERSTICK GLU 70 mg/dL Low 74-106 [facility] Comment on above: Result Comment: ORLY DELGADILLO OF PATIENT CARE PER NURSING PROTOCOL Performed By: #### L 501.080 ####[facility] [address] [place], [address] CBC W/Diff, Automatedon 03- 0-2024 Absolute Lymph 0.52 X10 3/uL Low 0.83-4.51 [facility] Comment on above: Performed By: #### L 500.2500, L100.0100 ####[facility] [address] [place], [address] Absolute Neut 4.8 X10 3/uL Normal 2.0-7.7 [facility] Comment on above: Performed By: #### L 500.2500, L100.0100 ####[facility] [address] [place], [address] Basophils/100 WBC (Bld) 0.2 % Normal 0-1 [facility] Comment on above: Performed By: #### L 500.2500, L100.0100 ####[facility] [address] [place], [address] Eosinophils/100 WBC (Bld) 2.4 % Normal 0-5 [facility] Comment on above: Performed By: #### L 500.2500, L100.0100 ####[facility] [address] [place], [address] Erythrocyte distribution width (RBC) [Ratio] 14.5 % Normal 11.6-14.6 [facility] Comment on above: Performed By: #### L 500.2500, L100.0100 ####[facility] [address] [place], [address] Hematocrit (Bld) [Volume fraction] 28.8 % Low 40-54 [facility] Comment on above: Performed By: #### L 500.2500, L100.0100 ####[facility] [address] [place], [address] Hemoglobin (Bld) [Mass/Vol] 9.4 g/dL Low 13.0-16.5 [facility] Comment on above: Performed By: #### L 500.2500, L100.0100 ####[facility] [address] [place], [address] IG% 0.500 Normal 0.0-0.9 [facility] Comment on above: Result Comment: IG% - Immature Granulocytes (promyelocytes, myelocytes andmetamyelocytes) > 1% indicates that a LEFT SHIFT is Present. Performed By: #### L 500.2500, L100.0100 ####[facility] [address] [place], [address] Lymphocytes/100 WBC (Bld) 8.2 % Low 19-41 [facility] Comment on above: Performed By: #### L 500.2500, L100.0100 ####[facility] [address] [place], [address] MCH (RBC) [Entitic mass] 28.6 pg Normal 27.0-32.0 [facility] Comment on above: Performed By: #### L 500.2500, L100.0100 ####[facility] [address] [place], [address] MCHC (RBC) [Mass/Vol] 32.6 g/dL Normal 32-36 [facility] Comment on above: Performed By: #### L 500.2500, L100.0100 ####[facility] [address] [place], [address] MCV (RBC) [Entitic vol] 87.5 fL Normal 80-94 [facility] Comment on above: Performed By: #### L 500.2500, L100.0100 ####[facility] [address] [place], [address] Monocytes/100 WBC (Bld) 12.5 % High 0-10 [facility] Comment on above: Performed By: #### L 500.2500, L100.0100 ####[facility] [address] [place], [address] Neutrophils/100 WBC (Bld) 76.2 % High 47-70 [facility] Comment on above: Performed By: #### L 500.2500, L100.0100 ####[facility] [address] [place], [address] Nucleated RBC (Bld) [#/Vol] 0 10*3/uL Normal 0-5 [facility] Comment on above: Performed By: #### L 500.2500, L100.0100 ####[facility] [address] [place], [address] Platelet mean volume (Bld) [Entitic vol] 10.2 fL Normal 6.2-12.0 [facility] Comment on above: Performed By: #### L 500.2500, L100.0100 ####[facility] [address] [place], [address] Platelets (Bld) [#/Vol] 222 10*3/uL Normal 150-450 [facility] Comment on above: Performed By: #### L 500.2500, L100.0100 ####[facility] [address] [place], [address] RBC (Bld) [#/Vol] 3.29 10*6/uL Low 4.6-6.2 [facility] Comment on above: Performed By: #### L 500.2500, L100.0100 ####[facility] [address] [place], [address] RDW SD 46.5 fl High 35.1-43.9 [facility] Comment on above: Performed By: #### L 500.2500, L100.0100 ####[facility] [address] [place], [address] WBC (Bld) [#/Vol] 6.3 10*3/uL Normal 4.4-11.0 [facility] Comment on above: Performed By: #### L 500.2500, L100.0100 ####[facility] [address] [place], [address] Electrocardiogram reportOrde red By: Etienne Darden on 10-14-2024 EKG study [facility] Work Phone: Basic Metabolic Profile (BMP )on 10-13-2024 BUN/CRE 29.0 RATIO High 10-20 [facility] Comment on above: Performed By: #### L 500.2500, L100.0100 ####[facility] [address] [place], [address] Calcium [Mass/Vol] 9.0 mg/dL Normal 7.6-11.0 [facility] Comment on above: Performed By: #### L 500.2500, L100.0100 ####[facility] [address] [place], [address] Chloride [Moles/Vol] 97 mmol/L Low 98-108 [facility] Comment on above: Performed By: #### L 500.2500, L100.0100 ####[facility] [address] [place], [address] CO2 [Moles/Vol] 22.2 mmol/L Normal 21.0-32.0 [facility] Comment on above: Performed By: #### L 500.2500, L100.0100 ####[facility] [address] [place], [address] Creatinine [Mass/Vol] 2.08 mg/dL High 0.70-1.20 [facility] Comment on above: Performed By: #### L 500.2500, L100.0100 ####[facility] [address] [place], [address] ECRCL 32.66 ml/min Low 50-250 [facility] Comment on above: Performed By: #### L 500.2500, L100.0100 ####[facility] [address] [place], [address] GAP 15 Normal 5-15 [facility] Comment on above: Performed By: #### L 500.2500, L100.0100 ####[facility] [address] [place], [address] GFR/1.73 sq M.predicted among non-blacks MDRD (S/P/Bld) [Vol rate/Area] 34 mL/min/{1.73_m2} Low >60 [facility] Comment on above: Result Comment: mL/m in/1.73m2 CKD-EPI Creatinine Equation (2020) Performed By: #### L 500.2500, L100.0100 ####[facility] [address] [place], [address] Glucose [Mass/Vol] 169 mg/dL High 70-99 [facility] Comment on above: Performed By: #### L 500.2500, L100.0100 ####[facility] [address] [place], [address] Potassium [Moles/Vol] 4.6 mmol/L Normal 3.3-5.1 [facility] Comment on above: Performed By: #### L 500.2500, L100.0100 ####[facility] [address] [place], [address] Sodium [Moles/Vol] 134 mmol/L Normal 133-145 [facility] Comment on above: Performed By: #### L 500.2500, L100.0100 ####[facility] [address] [place], [address] Urea nitrogen [Mass/Vol] 60 mg/dL High 4-19 [facility] Comment on above: Performed By: #### L 500.2500, L100.0100 ####[facility] [address] [place], [address] Bedside Glucoseon 10-13-2024 FINGERSTICK GLU 234 mg/dL High 74-106 [facility] Comment on above: Result Comment: ORLY GEMENT OF PATIENT CARE PER NURSING PROTOCOL Performed By: #### L 501.080 ####[facility] [address] [place], [address] FINGERSTICK GLU 212 mg/dL High 74-106 [facility] Comment on above: Result Comment: ORLY GEMENT OF PATIENT CARE PER NURSING PROTOCOL Performed By: #### L 501.080 ####[facility] [address] [place], [address] FINGERSTICK GLU 146 mg/dL High 74-106 [facility] Comment on above: Result Comment: ORLY GEMENT OF PATIENT CARE PER NURSING PROTOCOL Performed By: #### L 501.080 ####[facility] [address] [place], [address] FINGERSTICK GLU 156 mg/dL High 74-106 [facility] Comment on above: Result Comment: ORLY GEMENT OF PATIENT CARE PER NURSING PROTOCOL Performed By: #### L 501.080 ####[facility] [address] [place], [address] CBC W/Diff, Automatedon 03-0 Absolute Lymph 0.73 X10 3/uL Low 0.83-4.51 [facility] Comment on above: Performed By: #### L 500.2500, L100.0100 ####[facility] [address] [place], [address] Absolute Neut 5.8 X10 3/uL Normal 2.0-7.7 [facility] Comment on above: Performed By: #### L 500.2500, L100.0100 ####[facility] [address] [place], [address] Basophils/100 WBC (Bld) 0.3 % Normal 0-1 [facility] Comment on above: Performed By: #### L 500.2500, L100.0100 ####[facility] [address] [place], [address] Eosinophils/100 WBC (Bld) 1.4 % Normal 0-5 [facility] Comment on above: Performed By: #### L 500.2500, L100.0100 ####[facility] [address] [place], [address] Erythrocyte distribution width (RBC) [Ratio] 14.9 % High 11.6-14.6 [facility] Comment on above: Performed By: #### L 500.2500, L100.0100 ####[facility] [address] [place], [address] Hematocrit (Bld) [Volume fraction] 32.1 % Low 40-54 [facility] Comment on above: Performed By: #### L 500.2500, L100.0100 ####[facility] [address] [place], [address] Hemoglobin (Bld) [Mass/Vol] 10.3 g/dL Low 13.0-16.5 [facility] Comment on above: Performed By: #### L 500.2500, L100.0100 ####[facility] [address] [place], [address] IG% 0.700 Normal 0.0-0.9 [facility] Comment on above: Result Comment: IG% - Immature Granulocytes (promyelocytes, myelocytes andmetamyelocytes) > 1% indicates that a LEFT SHIFT is Present. Performed By: #### L 500.2500, L100.0100 ####[facility] [address] [place], [address] Lymphocytes/100 WBC (Bld) 9.6 % Low 19-41 [facility] Comment on above: Performed By: #### L 500.2500, L100.0100 ####[facility] [address] [place], [address] MCH (RBC) [Entitic mass] 28.9 pg Normal 27.0-32.0 [facility] Comment on above: Performed By: #### L 500.2500, L100.0100 ####[facility] [address] [place], [address] MCHC (RBC) [Mass/Vol] 32.1 g/dL Normal 32-36 [facility] Comment on above: Performed By: #### L 500.2500, L100.0100 ####[facility] [address] [place], [address] MCV (RBC) [Entitic vol] 89.9 fL Normal 80-94 [facility] Comment on above: Performed By: #### L 500.2500, L100.0100 ####[facility] [address] [place], [address] Monocytes/100 WBC (Bld) 12.0 % High 0-10 [facility] Comment on above: Performed By: #### L 500.2500, L100.0100 ####[facility] [address] [place], [address] Neutrophils/100 WBC (Bld) 76.0 % High 47-70 [facility] Comment on above: Performed By: #### L 500.2500, L100.0100 ####[facility] [address] [place], [address] Nucleated RBC (Bld) [#/Vol] 0 10*3/uL Normal 0-5 [facility] Comment on above: Performed By: #### L 500.2500, L100.0100 ####[facility] [address] [place], [address] Platelet mean volume (Bld) [Entitic vol] 10.5 fL Normal 6.2-12.0 [facility] Comment on above: Performed By: #### L 500.2500, L100.0100 ####[facility] [address] [place], [address] Platelets (Bld) [#/Vol] 215 10*3/uL Normal 150-450 [facility] Comment on above: Performed By: #### L 500.2500, L100.0100 ####[facility] [address] [place], [address] RBC (Bld) [#/Vol] 3.57 10*6/uL Low 4.6-6.2 [facility] Comment on above: Performed By: #### L 500.2500, L100.0100 ####[facility] [address] [place], [address] RDW SD 48.5 fl High 35.1-43.9 [facility] Comment on above: Performed By: #### L 500.2500, L100.0100 ####[facility] [address] [place], [address] WBC (Bld) [#/Vol] 7.6 10*3/uL Normal 4.4-11.0 [facility] Comment on above: Performed By: #### L 500.2500, L100.0100 ####[facility] [address] [place], [address] Chest 1 View (Portable)on Chest 1 View (Portable) Normal [facility] L503.7505on 10-13-2024 Natriuretic peptide B (Bld) [Mass/Vol] 8718 pg/mL High <=900 [facility] Comment on above: Result Comment: Hear t Failure Unlikely: < 300 pg/mLHeart Failure Likely< 50 Years: > 450 pg/mL50-75 Years: > 900 pg/mL>75 Years: > 1800 pg/mL Performed By: #### L 503.7505 ####[facility] [address] [place], [address] No Panel InformationOrdered By: Prateek Smith on 10-13-2024 8718 pg/mL High <900 [facility] Urine Cultureon 10-13-2024 URC Normal [facility] Comment on above: Performed By: #### M 100.2200, L400.0001 ####[facility] [address] [place], [address] Basic Metabolic Profile (BMP )on 10-12-2024 BUN/CRE 21.6 RATIO High 10-20 [facility] Comment on above: Performed By: #### L 500.2500, L100.0500 ####[facility] [address] [place], [address] Calcium [Mass/Vol] 8.3 mg/dL Normal 7.6-11.0 [facility] Comment on above: Performed By: #### L 500.2500, L100.0500 ####[facility] [address] [place], [address] Chloride [Moles/Vol] 98 mmol/L Normal 98-108 [facility] Comment on above: Performed By: #### L 500.2500, L100.0500 ####[facility] [address] [place], [address] CO2 [Moles/Vol] 20.5 mmol/L Low 21.0-32.0 [facility] Comment on above: Performed By: #### L 500.2500, L100.0500 ####[facility] [address] [place], [address] Creatinine [Mass/Vol] 2.37 mg/dL High 0.70-1.20 [facility] Comment on above: Performed By: #### L 500.2500, L100.0500 ####[facility] [address] [place], [address] ECRCL 28.27 ml/min Low 50-250 [facility] Comment on above: Performed By: #### L 500.2500, L100.0500 ####[facility] [address] [place], [address] GAP 16 High 5-15 [facility] Comment on above: Performed By: #### L 500.2500, L100.0500 ####[facility] [address] [place], [address] GFR/1.73 sq M.predicted among non-blacks MDRD (S/P/Bld) [Vol rate/Area] 29 mL/min/{1.73_m2} Low >60 [facility] Comment on above: Result Comment: mL/m in/1.73m2 CKD-EPI Creatinine Equation (2020) Performed By: #### L 500.2500, L100.0500 ####[facility] [address] [place], [address] Glucose [Mass/Vol] 226 mg/dL High 70-99 [facility] Comment on above: Performed By: #### L 500.2500, L100.0500 ####[facility] [address] [place], [address] Potassium [Moles/Vol] 4.4 mmol/L Normal 3.3-5.1 [facility] Comment on above: Performed By: #### L 500.2500, L100.0500 ####[facility] [address] [place], [address] Sodium [Moles/Vol] 135 mmol/L Normal 133-145 [facility] Comment on above: Performed By: #### L 500.2500, L100.0500 ####[facility] [address] [place], [address] Urea nitrogen [Mass/Vol] 51 mg/dL High 4-19 [facility] Comment on above: Performed By: #### L 500.2500, L100.0500 ####[facility] [address] [place], [address] Bedside Glucoseon 10-12-2024 FINGERSTICK GLU 144 mg/dL High 74-106 [facility] Comment on above: Result Comment: ORLY GEMENT OF PATIENT CARE PER NURSING PROTOCOL Performed By: #### L 501.080 ####[facility] [address] [place], [address] FINGERSTICK GLU 241 mg/dL High 74-106 [facility] Comment on above: Result Comment: ORLY GEMENT OF PATIENT CARE PER NURSING PROTOCOL Performed By: #### L 501.080 ####[facility] [address] [place], [address] FINGERSTICK GLU 358 mg/dL High 74-106 [facility] Comment on above: Result Comment: ORLY GEMENT OF PATIENT CARE PER NURSING PROTOCOL Performed By: #### L 501.080 ####[facility] [address] [place], [address] FINGERSTICK GLU 178 mg/dL High 74-106 [facility] Comment on above: Result Comment: ORLY GEMENT OF PATIENT CARE PER NURSING PROTOCOL Performed By: #### L 501.080 ####[facility] [address] [place], [address] CBC-Complete Blood Cnt No Di ffon 10-12-2024 Erythrocyte distribution width (RBC) [Ratio] 15.1 % High 11.6-14.6 [facility] Comment on above: Performed By: #### L 500.2500, L100.0500 ####[facility] [address] [place], [address] Hematocrit (Bld) [Volume fraction] 27.7 % Low 40-54 [facility] Comment on above: Performed By: #### L 500.2500, L100.0500 ####[facility] [address] [place], [address] Hemoglobin (Bld) [Mass/Vol] 9.1 g/dL Low 13.0-16.5 [facility] Comment on above: Performed By: #### L 500.2500, L100.0500 ####[facility] [address] [place], [address] MCH (RBC) [Entitic mass] 29.2 pg Normal 27.0-32.0 [facility] Comment on above: Performed By: #### L 500.2500, L100.0500 ####[facility] [address] [place], [address] MCHC (RBC) [Mass/Vol] 32.9 g/dL Normal 32-36 [facility] Comment on above: Performed By: #### L 500.2500, L100.0500 ####[facility] [address] [place], [address] MCV (RBC) [Entitic vol] 88.8 fL Normal 80-94 [facility] Comment on above: Performed By: #### L 500.2500, L100.0500 ####[facility] [address] [place], [address] Platelet mean volume (Bld) [Entitic vol] 10.4 fL Normal 6.2-12.0 [facility] Comment on above: Performed By: #### L 500.2500, L100.0500 ####[facility] [address] [place], [address] Platelets (Bld) [#/Vol] 193 10*3/uL Normal 150-450 [facility] Comment on above: Performed By: #### L 500.2500, L100.0500 ####[facility] [address] [place], [address] RBC (Bld) [#/Vol] 3.12 10*6/uL Low 4.6-6.2 [facility] Comment on above: Performed By: #### L 500.2500, L100.0500 ####[facility] [address] [place], [address] RDW SD 48.5 fl High 35.1-43.9 [facility] Comment on above: Performed By: #### L 500.2500, L100.0500 ####[facility] [address] [place], [address] WBC (Bld) [#/Vol] 7.7 10*3/uL Normal 4.4-11.0 [facility] Comment on above: Performed By: #### L 500.2500, L100.0500 ####[facility] [address] [place], [address] ALP [Catalytic activity/Vol] Ordered By: Kendra Yuan on 10-11-2024 Serum or plasma alkaline phosphatase measurement 72 U/L 40-129 [facility] ALT [Catalytic activity/Vol] Ordered By: Kendra Yuan on 10-11-2024 Serum or plasma alanine aminotransferase (ALT) measurement 145 U/L High <47 [facility] Albumin [Mass/Vol]Ordered By : Kendra Yuan on 10-11-2024 Serum or plasma albumin measurement (mass/volume) 3.3 g/dL Low 3.4-4.8 [facility] Albumin/Globulin [Mass ratio ]Ordered By: Kendra Yuan on 10-11-2024 Serum or plasma albumin/globulin mass ratio 1.1 RATIO 0.9-2.4 [facility] Bedside Glucoseon 10-11-2024 FINGERSTICK GLU 290 mg/dL High 74-106 [facility] Comment on above: Result Comment: ORLY GEMENT OF PATIENT CARE PER NURSING PROTOCOL Performed By: #### L 501.080 ####[facility] [address] [place], [address] FINGERSTICK GLU 255 mg/dL High 74-106 [facility] Comment on above: Result Comment: ORLY GEMENT OF PATIENT CARE PER NURSING PROTOCOL Performed By: #### L 501.080 ####[facility] [address] [place], [address] FINGERSTICK GLU 180 mg/dL High -106 [facility] Comment on above: Result Comment: ORLY GEMENT OF PATIENT CARE PER NURSING PROTOCOL Performed By: #### L 501.080 ####[facility] [address] [place], [address] Bilirubin, totalOrdered By: Kendra Yuan on 10-11-2024 Bilirubin, total 0.42 mg/dL 0.00-1.30 [facility] CBC W/Diff, Automatedon Absolute Lymph 0.78 X10 3/uL Low 0.83-4.51 [facility] Comment on above: Performed By: #### L 100.0100, L500.4050, L500.4100, L501.5200 ####[facility] [address] [place], [address] Absolute Neut 5.7 X10 3/uL Normal 2.0-7.7 [facility] Comment on above: Performed By: #### L 100.0100, L500.4050, L500.4100, L501.5200 ####[facility] [address] [place], [address] Basophils/100 WBC (Bld) 0.3 % Normal 0-1 [facility] Comment on above: Performed By: #### L 100.0100, L500.4050, L500.4100, L501.5200 ####[facility] [address] [place], [address] Eosinophils/100 WBC (Bld) 0.0 % Normal 0-5 [facility] Comment on above: Performed By: #### L 100.0100, L500.4050, L500.4100, L501.5200 ####[facility] [address] [place], [address] Erythrocyte distribution width (RBC) [Ratio] 15.0 % High 11.6-14.6 [facility] Comment on above: Performed By: #### L 100.0100, L500.4050, L500.4100, L501.5200 ####[facility] [address] [place], [address] Hematocrit (Bld) [Volume fraction] 27.3 % Low 40-54 [facility] Comment on above: Performed By: #### L 100.0100, L500.4050, L500.4100, L501.5200 ####[facility] [address] [place], [address] Hemoglobin (Bld) [Mass/Vol] 8.9 g/dL Low 13.0-16.5 [facility] Comment on above: Performed By: #### L 100.0100, L500.4050, L500.4100, L501.5200 ####[facility] [address] [place], [address] IG% 0.400 Normal 0.0-0.9 [facility] Comment on above: Result Comment: IG% - Immature Granulocytes (promyelocytes, myelocytes andmetamyelocytes) > 1% indicates that a LEFT SHIFT is Present. Performed By: #### L 100.0100, L500.4050, L500.4100, L501.5200 ####[facility] [address] [place], [address] Lymphocytes/100 WBC (Bld) 10.4 % Low 19-41 [facility] Comment on above: Performed By: #### L 100.0100, L500.4050, L500.4100, L501.5200 ####[facility] [address] [place], [address] MCH (RBC) [Entitic mass] 28.9 pg Normal 27.0-32.0 [facility] Comment on above: Performed By: #### L 100.0100, L500.4050, L500.4100, L501.5200 ####[facility] [address] [place], [address] MCHC (RBC) [Mass/Vol] 32.6 g/dL Normal 32-36 [facility] Comment on above: Performed By: #### L 100.0100, L500.4050, L500.4100, L501.5200 ####[facility] [address] [place], [address] MCV (RBC) [Entitic vol] 88.6 fL Normal 80-94 [facility] Comment on above: Performed By: #### L 100.0100, L500.4050, L500.4100, L501.5200 ####[facility] [address] [place], [address] Monocytes/100 WBC (Bld) 13.3 % High 0-10 [facility] Comment on above: Performed By: #### L 100.0100, L500.4050, L500.4100, L501.5200 ####[facility] [address] [place], [address] Neutrophils/100 WBC (Bld) 75.6 % High 47-70 [facility] Comment on above: Performed By: #### L 100.0100, L500.4050, L500.4100, L501.5200 ####[facility] [address] [place], [address] Nucleated RBC (Bld) [#/Vol] 0 10*3/uL Normal 0-5 [facility] Comment on above: Performed By: #### L 100.0100, L500.4050, L500.4100, L501.5200 ####[facility] [address] [place], [address] Platelet mean volume (Bld) [Entitic vol] 10.2 fL Normal 6.2-12.0 [facility] Comment on above: Performed By: #### L 100.0100, L500.4050, L500.4100, L501.5200 ####[facility] [address] [place], [address] Platelets (Bld) [#/Vol] 210 10*3/uL Normal 150-450 [facility] Comment on above: Performed By: #### L 100.0100, L500.4050, L500.4100, L501.5200 ####[facility] [address] [place], [address] RBC (Bld) [#/Vol] 3.08 10*6/uL Low 4.6-6.2 [facility] Comment on above: Performed By: #### L 100.0100, L500.4050, L500.4100, L501.5200 ####[facility] [address] [place], [address] RDW SD 48.5 fl High 35.1-43.9 [facility] Comment on above: Performed By: #### L 100.0100, L500.4050, L500.4100, L501.5200 ####[facility] [address] [place], [address] WBC (Bld) [#/Vol] 7.5 10*3/uL Normal 4.4-11.0 [facility] Comment on above: Performed By: #### L 100.0100, L500.4050, L500.4100, L501.5200 ####[facility] [address] [place], [address] Calculated very low density lipoprotein (VLDL) cholesterol measurementOrdered By: Kendra Yuan on 10-11-2024 Calculated very low density lipoprotein (VLDL) cholesterol measurement 20 mg/dL 5-40 [facility] Cholesterol [Mass/Vol]Ordere d By: Kendra Yuan on 10-11-2024 Serum or plasma cholesterol measurement (mass/volume) 94 mg/dL <201 [facility] Cholesterol in HDL [Mass/Vol ]Ordered By: Kendra Yuan on 10-11-2024 Serum or plasma cholesterol in HDL measurement (mass/volume) 31 mg/dL Low >40 [facility] Comprehensive Metabolic Prof ilon 10-11-2024 Albumin [Mass/Vol] 3.3 g/dL Low 3.4-4.8 [facility] Comment on above: Performed By: #### L 100.0100, L500.4050, L500.4100, L501.5200 ####[facility] [address] [place], [address] Albumin/Globulin [Mass ratio] 1.1 {ratio} Normal 0.9-2.4 [facility] Comment on above: Performed By: #### L 100.0100, L500.4050, L500.4100, L501.5200 ####[facility] [address] [place], [address] ALK PHOS 72 U/L Normal 40-129 [facility] Comment on above: Performed By: #### L 100.0100, L500.4050, L500.4100, L501.5200 ####[facility] [address] [place], [address] ALT [Catalytic activity/Vol] 145 U/L High <=46 [facility] Comment on above: Performed By: #### L 100.0100, L500.4050, L500.4100, L501.5200 ####[facility] [address] [place], [address] AST [Catalytic activity/Vol] 263 U/L High <=37 [facility] Comment on above: Performed By: #### L 100.0100, L500.4050, L500.4100, L501.5200 ####[facility] [address] [place], [address] Bilirubin [Mass/Vol] 0.42 mg/dL Normal 0.00-1.30 [facility] Comment on above: Performed By: #### L 100.0100, L500.4050, L500.4100, L501.5200 ####[facility] [address] [place], [address] BUN/CRE 16.6 RATIO Normal 10-20 [facility] Comment on above: Performed By: #### L 100.0100, L500.4050, L500.4100, L501.5200 ####[facility] [address] [place], [address] Calcium [Mass/Vol] 7.4 mg/dL Low 7.6-11.0 [facility] Comment on above: Performed By: #### L 100.0100, L500.4050, L500.4100, L501.5200 ####[facility] [address] [place], [address] Chloride [Moles/Vol] 101 mmol/L Normal 98-108 [facility] Comment on above: Performed By: #### L 100.0100, L500.4050, L500.4100, L501.5200 ####[facility] [address] [place], [address] CO2 [Moles/Vol] 21.8 mmol/L Normal 21.0-32.0 [facility] Comment on above: Performed By: #### L 100.0100, L500.4050, L500.4100, L501.5200 ####[facility] [address] [place], [address] Creatinine [Mass/Vol] 2.11 mg/dL High 0.70-1.20 [facility] Comment on above: Performed By: #### L 100.0100, L500.4050, L500.4100, L501.5200 ####[facility] [address] [place], [address] ECRCL 32.20 ml/min Low 50-250 [facility] Comment on above: Performed By: #### L 100.0100, L500.4050, L500.4100, L501.5200 ####[facility] [address] [place], [address] GAP 17 High 5-15 [facility] Comment on above: Performed By: #### L 100.0100, L500.4050, L500.4100, L501.5200 ####[facility] [address] [place], [address] GFR/1.73 sq M.predicted among non-blacks MDRD (S/P/Bld) [Vol rate/Area] 34 mL/min/{1.73_m2} Low >60 [facility] Comment on above: Result Comment: mL/m in/1.73m2 CKD-EPI Creatinine Equation (2020) Performed By: #### L 100.0100, L500.4050, L500.4100, L501.5200 ####[facility] [address] [place], [address] Globulin (S) [Mass/Vol] 3.0 g/dL Normal 2.2-4.2 [facility] Comment on above: Performed By: #### L 100.0100, L500.4050, L500.4100, L501.5200 ####[facility] [address] [place], [address] Glucose [Mass/Vol] 167 mg/dL High 70-99 [facility] Comment on above: Performed By: #### L 100.0100, L500.4050, L500.4100, L501.5200 ####[facility] [address] [place], [address] Potassium [Moles/Vol] 4.2 mmol/L Normal 3.3-5.1 [facility] Comment on above: Performed By: #### L 100.0100, L500.4050, L500.4100, L501.5200 ####[facility] [address] [place], [address] Sodium [Moles/Vol] 139 mmol/L Normal 133-145 [facility] Comment on above: Performed By: #### L 100.0100, L500.4050, L500.4100, L501.5200 ####[facility] [address] [place], [address] T PROT 6.2 g/dL Normal 5.9-8.4 [facility] Comment on above: Performed By: #### L 100.0100, L500.4050, L500.4100, L501.5200 ####[facility] [address] [place], [address] Urea nitrogen [Mass/Vol] 35 mg/dL High 4-19 [facility] Comment on above: Performed By: #### L 100.0100, L500.4050, L500.4100, L501.5200 ####[facility] [address] [place], [address] Consultation - Infectious Dx on 10-11-2024 Consultation - Infectious Dx Normal [facility] Consultation - Nephrologyon 10-11-2024 Consultation - Nephrology Normal [facility] Consultation - Urologyon Consultation - Urology Normal [facility] LDL calc ser/plasOrdered By: Kendra Yuan on 10-11-2024 LDL calc ser/plas 43 mg/dL [facility] Lipid Profileon 10-11-2024 CHOL:HDL 3.00 Normal [facility] Comment on above: Performed By: #### L 100.0100, L500.4050, L500.4100, L501.5200 ####[facility] [address] [place], [address] Cholesterol [Mass/Vol] 94 mg/dL Normal <=200 [facility] Comment on above: Result Comment: Chol esterol level, Desirable <200 mg/dLBorderline high cholesterol 200-239 mg/dLHigh cholesterol >=240 mg/dLRecommendations of the NCEP Adult Treatment Panel for thefollowing risk-cutoff thresholds for the [place] [facility]. Performed By: #### L 100.0100, L500.4050, L500.4100, L501.5200 ####[facility] [address] [place], [address] Cholesterol in HDL [Mass/Vol] 31 mg/dL Low [facility] Comment on above: Result Comment: Melissa onal Cholesterol Education Program (NCEP) guidelines:<40 mg/dL: Low HDL-cholesterol (major risk factor for CHD)>= 60 mg/dL: High HDL-cholesterol (negative risk factor forCHD)HDL-cholesterol is affected by a number of factors, e.g.smoking, exercise, hormones, sex and age. Performed By: #### L 100.0100, L500.4050, L500.4100, L501.5200 ####[facility] [address] [place], [place], [address] Cholesterol in LDL [Mass/Vol] 43 mg/dL Normal [facility] Comment on above: Result Comment: Bord pdgzxn=904-172 mg/dL Higher Wpzy=070 mg/dL or greater Performed By: #### L 100.0100, L500.4050, L500.4100, L501.5200 ####[facility] [address] [place], [address] Cholesterol in VLDL [Mass/Vol] 20 mg/dL Normal 5-40 [facility] Comment on above: Performed By: #### L 100.0100, L500.4050, L500.4100, L501.5200 ####[facility] [address] [place], [address] Triglyceride [Mass/Vol] 101 mg/dL Normal [facility] Comment on above: Result Comment: The drugs N-Acetylcysteine and Metamizole may falselydepress this assay.Normal range: <150 mg/dLBorderline High: 150-199 mg/dLHigh: 200-499 mg/dLVery High: >500 mg/dL Performed By: #### L 100.0100, L500.4050, L500.4100, L501.5200 ####[facility] [address] [place], [address] Magnesiumon 10-11-2024 Magnesium [Mass/Vol] 1.5 mg/dL Normal 1.5-2.2 [facility] Comment on above: Performed By: #### L 100.0100, L500.4050, L500.4100, L501.5200 ####[facility] [address] [place], [address] No Panel InformationOrdered By: Kendra Yuan on 10-11-2024 263 U/L High <38 [facility] Partial Thromboplast Timeon 10-11-2024 aPTT Coag (Bld) [Time] 72.6 s High 24.1-36.2 [facility] Comment on above: Performed By: #### L 300.4310 ####[facility] [address] [place], [place], [address] aPTT Coag (Bld) [Time] 64.6 s High 24.1-36.2 [facility] Comment on above: Performed By: #### L 811.4147 ####[facility] [address] [place], [place], [address] Screening total cholesterol/ high density lipoprotein (HDL) cholesterol ratioOrdered By: Kendra Yuan on 10-11-2024 Screening total cholesterol/high density lipoprotein (HDL) cholesterol ratio 3.00 [facility] Serum globulin measurementOr dered By: Kendra Yuan on 10-11-2024 Serum globulin measurement 3.0 g/dL 2.2-4.2 [facility] Total proteinOrdered By: Suzie Yuan on 10-11-2024 Total protein 6.2 g/dL 5.9-8.4 [facility] Triglycerides measurementOrd ered By: Kendra Yuan on 10-11-2024 Triglycerides measurement 101 mg/dL <199 [facility] aPTT Coag (PPP) [Time]Ordere d By: Prateek Smith on 10-11-2024 Activated partial thromboplastin time (aPTT) in platelet poor plasma by coagulation a 72.6 Seconds High 24.1-36.2 [facility] 12 Lead EKGon 10-10-2024 12 Lead EKG Normal [facility] Abdomen/Pelvis W IV Cont ONL Yon 10-10-2024 Abdomen/Pelvis W IV Cont ONLY Normal [facility] Ammoniaon 10-10-2024 Ammonia (P) [Moles/Vol] 12.6 umol/L Low 16-60 [facility] Comment on above: Performed By: #### L 501.5200, M200.1000, L503.7505, L100.0100, L503.6005, L500.2500, L503.5510, L500.3400 ####[facility] [address] [place], [place], [address] Arterial patency Wrist arter y --pre arterial punctureOrdered By: Ross Crump on 10-10-2024 Assessment of wrist artery patency prior to arterial puncture Positive [facility] Bacteria LM.HPF (Urine sed) [#/Area]Ordered By: Ross Crump on 10-10-2024 Urine sediment bacteria count by microscopy (number/high power field) 2+ /hpf None Seen [facility] Base excess Calc (BldV) [Mol es/Vol]Ordered By: Ross Crump on 10-10-2024 Blood base excess determination -4 mmol/L Low -2-2 [facility] Venous blood base excess measurement 2 mmol/L -1.0-3.5 [facility] Basic Metabolic Profile (BMP )on 10-10-2024 BUN/CRE 18.4 RATIO Normal 10-20 [facility] Comment on above: Performed By: #### L 501.5200, M200.1000, L503.7505, L100.0100, L503.6005, L500.2500, L503.5510, L500.3400 ####[facility] [address] [place], [address] Calcium [Mass/Vol] 9.8 mg/dL Normal 7.6-11.0 [facility] Comment on above: Performed By: #### L 501.5200, M200.1000, L503.7505, L100.0100, L503.6005, L500.2500, L503.5510, L500.3400 ####[facility] [address] [place], [address] Chloride [Moles/Vol] 100 mmol/L Normal 98-108 [facility] Comment on above: Performed By: #### L 501.5200, M200.1000, L503.7505, L100.0100, L503.6005, L500.2500, L503.5510, L500.3400 ####[facility] [address] [place], [address] CO2 [Moles/Vol] 22.3 mmol/L Normal 21.0-32.0 [facility] Comment on above: Performed By: #### L 501.5200, M200.1000, L503.7505, L100.0100, L503.6005, L500.2500, L503.5510, L500.3400 ####[facility] [address] [place], [address] Creatinine [Mass/Vol] 1.39 mg/dL High 0.70-1.20 [facility] Comment on above: Performed By: #### L 501.5200, M200.1000, L503.7505, L100.0100, L503.6005, L500.2500, L503.5510, L500.3400 ####[facility] [address] [place], [place], [phone]) ECRCL 48.87 ml/min Low 50-250 [facility] Comment on above: Performed By: #### L 501.5200, M200.1000, L503.7505, L100.0100, L503.6005, L500.2500, L503.5510, L500.3400 ####[facility] [address] [place], [place], [id number] GAP 18 High 5-15 [facility] Comment on above: Performed By: #### L 501.5200, M200.1000, L503.7505, L100.0100, L503.6005, L500.2500, L503.5510, L500.3400 ####[facility] [address] [place], [place], [phone] GFR/1.73 sq M.predicted among non-blacks MDRD (S/P/Bld) [Vol rate/Area] 56 mL/min/{1.73_m2} Low >60 [facility] Comment on above: Result Comment: mL/m in/1.73m2 CKD-EPI Creatinine Equation (2020) Performed By: #### L 501.5200, M200.1000, L503.7505, L100.0100, L503.6005, L500.2500, L503.5510, L500.3400 ####[facility] [address] [place], [address] Glucose [Mass/Vol] 80 mg/dL Normal 70-99 [facility] Comment on above: Performed By: #### L 501.5200, M200.1000, L503.7505, L100.0100, L503.6005, L500.2500, L503.5510, L500.3400 ####[facility] [address] [place], [address] Potassium [Moles/Vol] 4.3 mmol/L Normal 3.3-5.1 [facility] Comment on above: Performed By: #### L 501.5200, M200.1000, L503.7505, L100.0100, L503.6005, L500.2500, L503.5510, L500.3400 ####[facility] [address] [place], [address] Sodium [Moles/Vol] 141 mmol/L Normal 133-145 [facility] Comment on above: Performed By: #### L 501.5200, M200.1000, L503.7505, L100.0100, L503.6005, L500.2500, L503.5510, L500.3400 ####[facility] [address] [place], [address] Urea nitrogen [Mass/Vol] 26 mg/dL High 4-19 [facility] Comment on above: Performed By: #### L 501.5200, M200.1000, L503.7505, L100.0100, L503.6005, L500.2500, L503.5510, L500.3400 ####[facility] [address] [place], [address] Bedside Glucoseon 10-10-2024 FINGERSTICK GLU 174 mg/dL High 74-106 [facility] Comment on above: Result Comment: ORLY GEMENT OF PATIENT CARE PER NURSING PROTOCOL Performed By: #### L 501.080 ####[facility] [address] [place], [address] FINGERSTICK GLU 223 mg/dL High 74-106 [facility] Comment on above: Result Comment: ORLY GEMENT OF PATIENT CARE PER NURSING PROTOCOL Performed By: #### L 501.080 ####[facility] [address] [place], [address] Bilirubin.direct [Mass/Vol]O rdered By: Ross Crump on 10-10-2024 Bilirubin direct 0.22 mg/dL 0.00-0.30 [facility] Blood Gases by CPSon 025 ANTHONY TEST Positive Normal [facility] Comment on above: Performed By: #### L 9000.0800 ####[facility] [address] [place], [address] Base excess Calc (Bld) [Moles/Vol] -4 mmol/L Low -2 to +2 [facility] Comment on above: Performed By: #### L 9000.0800 ####[facility] [address] [place], [address] Blood Gas Type ART Normal [facility] Comment on above: Performed By: #### L 9000.0800 ####[facility] [address] [place], [address] CO2 [Moles/Vol] 23 mmol/L Normal [facility] Comment on above: Performed By: #### L 9000.0800 ####[facility] [address] [place], [address] Comment AIRVO 55L 85% Normal [facility] Comment on above: Performed By: #### L 9000.0800 ####[facility] [address] [place], [address] FI02 85.0 Normal [facility] Comment on above: Performed By: #### L 9000.0800 ####[facility] [address] [place], [address] HCO3 (Bld) [Moles/Vol] 21.9 mmol/L Low 22-26 [facility] Comment on above: Performed By: #### L 9000.0800 ####[facility] [address] [place], [address] Mode Not entered [facility] Comment on above: Performed By: #### L 9000.0800 ####[facility] [address] [place], [address] O2 Delivery Dev AIRVO Normal [facility] Comment on above: Performed By: #### L 9000.0800 ####[facility] [address] [place], [address] pCO2 43.9 mmHg Normal 35-45 [facility] Comment on above: Performed By: #### L 9000.0800 ####[facility] [address] [place], [address] pH (Bld) 7.31 [pH] Low 7.35-7.45 [facility] Comment on above: Performed By: #### L 9000.0800 ####[facility] [address] [place], [address] PO2 72 mmHG Low 75-100 [facility] Comment on above: Performed By: #### L 9000.0800 ####[facility] [address] [place], [address] SITE L Radial Normal [facility] Comment on above: Performed By: #### L 9000.0800 ####[facility] [address] [place], [address] SO2 92 Low 95-99 [facility] Comment on above: Performed By: #### L 9000.0800 ####[facility] [address] [place], [address] Blood bicarbonate measuremen tOrdered By: Ross Crump on 10-10-2024 Blood bicarbonate measurement 21.9 mmol/L Low 22-26 [facility] Blood cultureOrdered By: Andrzej Crump on 10-10-2024 Blood culture No growth in 5 days. [facility] Blood culture No growth in 5 days. [facility] CBC W/Diff, Automatedon 03 Absolute Lymph 0.71 X10 3/uL Low 0.83-4.51 [facility] Comment on above: Performed By: #### L 500.4050, L100.0100, L501.9520 ####[facility] [address] [place], [address] Absolute Neut 9.2 X10 3/uL High 2.0-7.7 [facility] Comment on above: Performed By: #### L 500.4050, L100.0100, L501.9520 ####[facility] [address] [place], [address] Basophils/100 WBC (Bld) 0.1 % Normal 0-1 [facility] Comment on above: Performed By: #### L 500.4050, L100.0100, L501.9520 ####[facility] [address] [place], [address] Eosinophils/100 WBC (Bld) 0.1 % Normal 0-5 [facility] Comment on above: Performed By: #### L 500.4050, L100.0100, L501.9520 ####[facility] [address] [place], [address] Erythrocyte distribution width (RBC) [Ratio] 14.6 % Normal 11.6-14.6 [facility] Comment on above: Performed By: #### L 500.4050, L100.0100, L501.9520 ####[facility] [address] [place], [address] Hematocrit (Bld) [Volume fraction] 32.7 % Low 40-54 [facility] Comment on above: Performed By: #### L 500.4050, L100.0100, L501.9520 ####[facility] [address] [place], [address] Hemoglobin (Bld) [Mass/Vol] 10.9 g/dL Low 13.0-16.5 [facility] Comment on above: Performed By: #### L 500.4050, L100.0100, L501.9520 ####[facility] [address] [place], [address] IG% 0.300 Normal 0.0-0.9 [facility] Comment on above: Result Comment: IG% - Immature Granulocytes (promyelocytes, myelocytes andmetamyelocytes) > 1% indicates that a LEFT SHIFT is Present. Performed By: #### L 500.4050, L100.0100, L501.9520 ####[facility] [address] [place], [address] Lymphocytes/100 WBC (Bld) 6.7 % Low 19-41 [facility] Comment on above: Performed By: #### L 500.4050, L100.0100, L501.9520 ####[facility] [address] [place], [address] MCH (RBC) [Entitic mass] 29.3 pg Normal 27.0-32.0 [facility] Comment on above: Performed By: #### L 500.4050, L100.0100, L501.9520 ####[facility] [address] [place], [address] MCHC (RBC) [Mass/Vol] 33.3 g/dL Normal 32-36 [facility] Comment on above: Performed By: #### L 500.4050, L100.0100, L501.9520 ####[facility] [address] [place], [address] MCV (RBC) [Entitic vol] 87.9 fL Normal 80-94 [facility] Comment on above: Performed By: #### L 500.4050, L100.0100, L501.9520 ####[facility] [address] [place], [address] Monocytes/100 WBC (Bld) 6.1 % Normal 0-10 [facility] Comment on above: Performed By: #### L 500.4050, L100.0100, L501.9520 ####[facility] [address] [place], [address] Neutrophils/100 WBC (Bld) 86.7 % High 47-70 [facility] Comment on above: Performed By: #### L 500.4050, L100.0100, L501.9520 ####[facility] [address] [place], [address] Nucleated RBC (Bld) [#/Vol] 0 10*3/uL Normal 0-5 [facility] Comment on above: Performed By: #### L 500.4050, L100.0100, L501.9520 ####[facility] [address] [place], [address] Platelet mean volume (Bld) [Entitic vol] 10.5 fL Normal 6.2-12.0 [facility] Comment on above: Performed By: #### L 500.4050, L100.0100, L501.9520 ####[facility] [address] [place], [address] Platelets (Bld) [#/Vol] 245 10*3/uL Normal 150-450 [facility] Comment on above: Performed By: #### L 500.4050, L100.0100, L501.9520 ####[facility] [address] [place], [address] RBC (Bld) [#/Vol] 3.72 10*6/uL Low 4.6-6.2 [facility] Comment on above: Performed By: #### L 500.4050, L100.0100, L501.9520 ####[facility] [address] [place], [address] RDW SD 46.8 fl High 35.1-43.9 [facility] Comment on above: Performed By: #### L 500.4050, L100.0100, L501.9520 ####[facility] [address] [place], [address] WBC (Bld) [#/Vol] 10.6 10*3/uL Normal 4.4-11.0 [facility] Comment on above: Performed By: #### L 500.4050, L100.0100, L501.9520 ####[facility] [address] [place], [address] Absolute Lymph 0.61 X10 3/uL Low 0.83-4.51 [facility] Comment on above: Performed By: #### L 501.5200, M200.1000, L503.7505, L100.0100, L503.6005, L500.2500, L503.5510, L500.3400 ####[facility] [address] [place], [address] Absolute Neut 9.9 X10 3/uL High 2.0-7.7 [facility] Comment on above: Performed By: #### L 501.5200, M200.1000, L503.7505, L100.0100, L503.6005, L500.2500, L503.5510, L500.3400 ####[facility] [address] [place], [address] Basophils/100 WBC (Bld) 0.2 % Normal 0-1 [facility] Comment on above: Performed By: #### L 501.5200, M200.1000, L503.7505, L100.0100, L503.6005, L500.2500, L503.5510, L500.3400 ####[facility] [address] [place], [address] Eosinophils/100 WBC (Bld) 0.2 % Normal 0-5 [facility] Comment on above: Performed By: #### L 501.5200, M200.1000, L503.7505, L100.0100, L503.6005, L500.2500, L503.5510, L500.3400 ####[facility] [address] [place], [address] Erythrocyte distribution width (RBC) [Ratio] 14.5 % Normal 11.6-14.6 [facility] Comment on above: Performed By: #### L 501.5200, M200.1000, L503.7505, L100.0100, L503.6005, L500.2500, L503.5510, L500.3400 ####[facility] [address] [place], [address] Hematocrit (Bld) [Volume fraction] 37.4 % Low 40-54 [facility] Comment on above: Performed By: #### L 501.5200, M200.1000, L503.7505, L100.0100, L503.6005, L500.2500, L503.5510, L500.3400 ####[facility] [address] [place], [address] Hemoglobin (Bld) [Mass/Vol] 12.4 g/dL Low 13.0-16.5 [facility] Comment on above: Performed By: #### L 501.5200, M200.1000, L503.7505, L100.0100, L503.6005, L500.2500, L503.5510, L500.3400 ####[facility] [address] [place], [address] IG% 0.400 Normal 0.0-0.9 [facility] Comment on above: Result Comment: IG% - Immature Granulocytes (promyelocytes, myelocytes andmetamyelocytes) > 1% indicates that a LEFT SHIFT is Present. Performed By: #### L 501.5200, M200.1000, L503.7505, L100.0100, L503.6005, L500.2500, L503.5510, L500.3400 ####[facility] [address] [place], [address] Lymphocytes/100 WBC (Bld) 5.4 % Low 19-41 [facility] Comment on above: Performed By: #### L 501.5200, M200.1000, L503.7505, L100.0100, L503.6005, L500.2500, L503.5510, L500.3400 ####[facility] [address] [place], [address] MCH (RBC) [Entitic mass] 29.2 pg Normal 27.0-32.0 [facility] Comment on above: Performed By: #### L 501.5200, M200.1000, L503.7505, L100.0100, L503.6005, L500.2500, L503.5510, L500.3400 ####[facility] [address] [place], [address] MCHC (RBC) [Mass/Vol] 33.2 g/dL Normal 32-36 [facility] Comment on above: Performed By: #### L 501.5200, M200.1000, L503.7505, L100.0100, L503.6005, L500.2500, L503.5510, L500.3400 ####[facility] [address] [place], [address] MCV (RBC) [Entitic vol] 88.0 fL Normal 80-94 [facility] Comment on above: Performed By: #### L 501.5200, M200.1000, L503.7505, L100.0100, L503.6005, L500.2500, L503.5510, L500.3400 ####[facility] [address] [place], [address] Monocytes/100 WBC (Bld) 6.6 % Normal 0-10 [facility] Comment on above: Performed By: #### L 501.5200, M200.1000, L503.7505, L100.0100, L503.6005, L500.2500, L503.5510, L500.3400 ####[facility] [address] [place], [address] Neutrophils/100 WBC (Bld) 87.2 % High 47-70 [facility] Comment on above: Performed By: #### L 501.5200, M200.1000, L503.7505, L100.0100, L503.6005, L500.2500, L503.5510, L500.3400 ####[facility] [address] [place], [address] Nucleated RBC (Bld) [#/Vol] 0 10*3/uL Normal 0-5 [facility] Comment on above: Performed By: #### L 501.5200, M200.1000, L503.7505, L100.0100, L503.6005, L500.2500, L503.5510, L500.3400 ####[facility] [address] [place], [address] Platelet mean volume (Bld) [Entitic vol] 10.0 fL Normal 6.2-12.0 [facility] Comment on above: Performed By: #### L 501.5200, M200.1000, L503.7505, L100.0100, L503.6005, L500.2500, L503.5510, L500.3400 ####[facility] [address] [place], [address] Platelets (Bld) [#/Vol] 259 10*3/uL Normal 150-450 [facility] Comment on above: Performed By: #### L 501.5200, M200.1000, L503.7505, L100.0100, L503.6005, L500.2500, L503.5510, L500.3400 ####[facility] [address] [place], [address] RBC (Bld) [#/Vol] 4.25 10*6/uL Low 4.6-6.2 [facility] Comment on above: Performed By: #### L 501.5200, M200.1000, L503.7505, L100.0100, L503.6005, L500.2500, L503.5510, L500.3400 ####[facility] [address] [place], [address] RDW SD 46.3 fl High 35.1-43.9 [facility] Comment on above: Performed By: #### L 501.5200, M200.1000, L503.7505, L100.0100, L503.6005, L500.2500, L503.5510, L500.3400 ####[facility] [address] [place], [address] WBC (Bld) [#/Vol] 11.3 10*3/uL High 4.4-11.0 [facility] Comment on above: Performed By: #### L 501.5200, M200.1000, L503.7505, L100.0100, L503.6005, L500.2500, L503.5510, L500.3400 ####[facility] [address] [place], [address] CO2 (BldV) [Moles/Vol]Ordere d By: Ross Crump on 10-10-2024 Venous blood total carbon dioxide measurement 28 mmol/L 23-33 [facility] CO2 (BldV) [Partial pressure ]Ordered By: Ross Crump on 10-10-2024 Venous blood partial pressure of carbon dioxide measurement 44.8 mmHg 41-51 [facility] CTA Chest W/WO Contraston CTA Chest W/WO Contrast Normal [facility] Chest 1 View (Portable)on Chest 1 View (Portable) Normal [facility] Clarity (U)Ordered By: Delroy Crump on 10-10-2024 Urine clarity Cloudy Clear [facility] Color (U)Ordered By: Ross Crump on 10-10-2024 Urine color determination Yellow Yellow [facility] Comprehensive Metabolic Prof ilon 10-10-2024 Albumin [Mass/Vol] 3.7 g/dL Normal 3.4-4.8 [facility] Comment on above: Order Comment: REDRA W. PREVIOUS SPECIMEN REJECTED DUE TOHEMOLYSIS. 10/10/24 0711 Joselito Yuan. Performed By: #### L 501.9534, L500.4050 ####[facility] [address] [place], [address] Albumin/Globulin [Mass ratio] 1.1 {ratio} Normal 0.9-2.4 [facility] Comment on above: Order Comment: REDRA W. PREVIOUS SPECIMEN REJECTED DUE TOHEMOLYSIS. 10/10/24 0711 Joselito Yuan. Performed By: #### L 501.9520, L500.4050 ####[facility] [address] [place], [address] ALK PHOS 85 U/L Normal 40-129 [facility] Comment on above: Order Comment: REDRA W. PREVIOUS SPECIMEN REJECTED DUE TOHEMOLYSIS. 10/10/24710 Joselito Yuan. Performed By: #### L 501.9520, L500.4050 ####[facility] [address] [place], [address] ALT [Catalytic activity/Vol] 26 U/L Normal <=46 [facility] Comment on above: Order Comment: REDRA W. PREVIOUS SPECIMEN REJECTED DUE TOHEMOLYSIS. 10/10/24710 Joselito Yuan. Performed By: #### L 501.9520, L500.4050 ####[facility] [address] [place], [address] AST [Catalytic activity/Vol] 79 U/L High <=37 [facility] Comment on above: Order Comment: REDRA W. PREVIOUS SPECIMEN REJECTED DUE TOHEMOLYSIS. 10/10/24710 Joselito Johnson Kwabena. Performed By: #### L 501.9520, L500.4050 ####[facility] [address] [place], [address] Bilirubin [Mass/Vol] 0.45 mg/dL Normal 0.00-1.30 [facility] Comment on above: Order Comment: REDRA W. PREVIOUS SPECIMEN REJECTED DUE TOHEMOLYSIS. 10/10/24710 Joselito Yuan. Performed By: #### L 501.9520, L500.4050 ####[facility] [address] [place], [address] BUN/CRE 19.6 RATIO Normal 10-20 [facility] Comment on above: Order Comment: REDRA W. PREVIOUS SPECIMEN REJECTED DUE TOHEMOLYSIS. 10/10/24710 Joselito Yuan. Performed By: #### L 501.9520, L500.4050 ####[facility] [address] [place], [address] Calcium [Mass/Vol] 8.8 mg/dL Normal 7.6-11.0 [facility] Comment on above: Order Comment: REDRA W. PREVIOUS SPECIMEN REJECTED DUE TOHEMOLYSIS. 10/10/24710 Joselito Yuan. Performed By: #### L 501.9520, L500.4050 ####[facility] [address] [place], [address] Chloride [Moles/Vol] 100 mmol/L Normal 98-108 [facility] Comment on above: Order Comment: REDRA W. PREVIOUS SPECIMEN REJECTED DUE TOHEMOLYSIS. 10/10/24710 Joselito Yuan. Performed By: #### L 501.9520, L500.4050 ####[facility] [address] [place], [address] CO2 [Moles/Vol] 21.5 mmol/L Normal 21.0-32.0 [facility] Comment on above: Order Comment: REDRA W. PREVIOUS SPECIMEN REJECTED DUE TOHEMOLYSIS. 10/10/24710 Joselito Johnson Kwabena. Performed By: #### L 501.9520, L500.4050 ####[facility] [address] [place], [address] Creatinine [Mass/Vol] 1.33 mg/dL High 0.70-1.20 [facility] Comment on above: Order Comment: REDRA W. PREVIOUS SPECIMEN REJECTED DUE TOHEMOLYSIS. 10/10/24710 Joselito Yuan. Performed By: #### L 501.9520, L500.4050 ####[facility] [address] [place], [address] ECRCL 51.08 ml/min Normal 50-250 [facility] Comment on above: Order Comment: REDRA W. PREVIOUS SPECIMEN REJECTED DUE TOHEMOLYSIS. 10/10/24710 Joselito Yuan. Performed By: #### L 501.9520, L500.4050 ####[facility] [address] [place], [address] GAP 16 High 5-15 [facility] Comment on above: Order Comment: REDRA W. PREVIOUS SPECIMEN REJECTED DUE TOHEMOLYSIS. 10/10/24710 Joselito Yuan. Performed By: #### L 501.9520, L500.4050 ####[facility] [address] [place], [address] GFR/1.73 sq M.predicted among non-blacks MDRD (S/P/Bld) [Vol rate/Area] 59 mL/min/{1.73_m2} Low >60 [facility] Comment on above: Order Comment: REDRA W. PREVIOUS SPECIMEN REJECTED DUE TOHEMOLYSIS. 10/10/24710 Joselito Yuan. Result Comment: mL/m in/1.73m2 CKD-EPI Creatinine Equation (2020) Performed By: #### L 501.9520, L500.4050 ####[facility] [address] [place], [address] Globulin (S) [Mass/Vol] 3.4 g/dL Normal 2.2-4.2 [facility] Comment on above: Order Comment: REDRA W. PREVIOUS SPECIMEN REJECTED DUE TOHEMOLYSIS. 10/10/2411 Joselito Yuan. Performed By: #### L 501.9520, L500.4050 ####[facility] [address] [place], [address] Glucose [Mass/Vol] 188 mg/dL High 70-99 [facility] Comment on above: Order Comment: REDRA W. PREVIOUS SPECIMEN REJECTED DUE TOHEMOLYSIS. 10/10/24710 Joselito Yuan. Performed By: #### L 501.9520, L500.4050 ####[facility] [address] [place], [address] Potassium [Moles/Vol] 4.4 mmol/L Normal 3.3-5.1 [facility] Comment on above: Order Comment: REDRA W. PREVIOUS SPECIMEN REJECTED DUE TOHEMOLYSIS. 10/10/2411 Joselito Yuan. Performed By: #### L 501.9520, L500.4050 ####[facility] [address] [place], [address] Sodium [Moles/Vol] 138 mmol/L Normal 133-145 [facility] Comment on above: Order Comment: REDRA W. PREVIOUS SPECIMEN REJECTED DUE TOHEMOLYSIS. 10/10/2411 Joselito Yuan. Performed By: #### L 501.9520, L500.4050 ####[facility] [address] [place], [address] T PROT 7.1 g/dL Normal 5.9-8.4 [facility] Comment on above: Order Comment: REDRA W. PREVIOUS SPECIMEN REJECTED DUE TOHEMOLYSIS. 10/10/2411 Joselito Yuan. Performed By: #### Elizabeth 501.9520, L500.4050 ####[facility] [address] [place], [address] Urea nitrogen [Mass/Vol] 26 mg/dL High 4-19 [facility] Comment on above: Order Comment: REDRA W. PREVIOUS SPECIMEN REJECTED DUE TOHEMOLYSIS. 10/10/2411 Joselito Yuan. Performed By: #### L 501.9520, L500.4050 ####[facility] [address] [place], [address] ALB Normal 3.4-4.8 [facility] Comment on above: Result Comment: This specimen has been REJECTED due to Laboratory criteria:Hemolyzed.TC (ICU) has been notified of need of recollection.10/10/24709 Joselito Yuan Performed By: #### L 500.4050, L100.0100, L501.9520 ####[facility] [address] [place], [address] ALK PHOS Normal 40-129 [facility] Comment on above: Result Comment: This specimen has been REJECTED due to Laboratory criteria:Hemolyzed.TC (ICU) has been notified of need of recollection.10/10/2410 Joselito Yuan Performed By: #### L 500.4050, L100.0100, L501.9520 ####[facility] [address] [place], [address] ALT Normal <=46 [facility] Comment on above: Result Comment: This specimen has been REJECTED due to Laboratory criteria:Hemolyzed.TC (ICU) has been notified of need of recollection.10/10/24 0710 Joselito L White Performed By: #### L 500.4050, L100.0100, L501.9520 ####[facility] [address] [place], [address] AST Normal <=37 [facility] Comment on above: Result Comment: This specimen has been REJECTED due to Laboratory criteria:Hemolyzed.TC (ICU) has been notified of need of recollection.10/10/24 0710 Joselito L White Performed By: #### L 500.4050, L100.0100, L501.9520 ####[facility] [address] [place], [address] BUN Normal 4-19 [facility] Comment on above: Result Comment: This specimen has been REJECTED due to Laboratory criteria:Hemolyzed.TC (ICU) has been notified of need of recollection.10/10/24 0710 Joselito L White Performed By: #### L 500.4050, L100.0100, L501.9520 ####[facility] [address] [place], [address] BUN/CRE Normal 10-20 [facility] Comment on above: Result Comment: This specimen has been REJECTED due to Laboratory criteria:Hemolyzed.TC (ICU) has been notified of need of recollection.10/10/24 0710 Joeslito L White Performed By: #### L 500.4050, L100.0100, L501.9520 ####[facility] [address] [place], [address] Calcium Normal 7.6-11.0 [facility] Comment on above: Result Comment: This specimen has been REJECTED due to Laboratory criteria:Hemolyzed.TC (ICU) has been notified of need of recollection.10/10/24 0710 Joselito L White Performed By: #### L 500.4050, L100.0100, L501.9520 ####[facility] [id number] [place], [address] CL Normal 98-108 [facility] Comment on above: Result Comment: This specimen has been REJECTED due to Laboratory criteria:Hemolyzed.TC (ICU) has been notified of need of recollection.10/10/24 0710 Joselito L White Performed By: #### L 500.4050, L100.0100, L501.9520 ####[facility] [address] [place], [address] CO2 Normal 21.0-32.0 [facility] Comment on above: Result Comment: This specimen has been REJECTED due to Laboratory criteria:Hemolyzed.TC (ICU) has been notified of need of recollection.10/10/24 0710 Joselito L White Performed By: #### L 500.4050, L100.0100, L501.9520 ####[facility] [address] [place], [address] CREAT,SERUM Normal 0.70-1.20 [facility] Comment on above: Result Comment: This specimen has been REJECTED due to Laboratory criteria:Hemolyzed.TC (ICU) has been notified of need of recollection.10/10/2410 Joselito L White Performed By: #### L 500.4050, L100.0100, L501.9520 ####[facility] [id number] [place], [address] eGFR Normal >60 [facility] Comment on above: Result Comment: This specimen has been REJECTED due to Laboratory criteria:Hemolyzed.TC (ICU) has been notified of need of recollection.10/10/24 0710 Joselito L White Performed By: #### L 500.4050, L100.0100, L501.9520 ####[facility] [address] [place], [address] GAP Normal 5-15 [facility] Comment on above: Result Comment: This specimen has been REJECTED due to Laboratory criteria:Hemolyzed.TC (ICU) has been notified of need of recollection.10/10/24 0710 Joselito L White Performed By: #### L 500.4050, L100.0100, L501.9520 ####[facility] [address] [place], [address] GLU Normal 70-99 [facility] Comment on above: Result Comment: This specimen has been REJECTED due to Laboratory criteria:Hemolyzed.TC (ICU) has been notified of need of recollection.10/10/24 0710 Joselito L White Performed By: #### L 500.4050, L100.0100, L501.9520 ####[facility] [address] [place], [address] Potassium Normal 3.3-5.1 [facility] Comment on above: Result Comment: This specimen has been REJECTED due to Laboratory criteria:Hemolyzed.TC (ICU) has been notified of need of recollection.10/10/24 0710 Joselito L White Performed By: #### L 500.4050, L100.0100, L501.9520 ####[facility] [address] [place], [address] T BILI Normal 0.00-1.30 [facility] Comment on above: Result Comment: This specimen has been REJECTED due to Laboratory criteria:Hemolyzed.TC (ICU) has been notified of need of recollection.10/10/24 0710 Joselito L White Performed By: #### L 500.4050, L100.0100, L501.9520 ####[facility] [address] [place], [address] T PROT Normal 5.9-8.4 [facility] Comment on above: Result Comment: This specimen has been REJECTED due to Laboratory criteria:Hemolyzed.TC (ICU) has been notified of need of recollection.10/10/24 0710 Joselito Johnson Kwabena Performed By: #### L 500.4050, L100.0100, L501.9520 ####[facility] [address] [place], [place], [address] Comprehensive Metabolic Profil Normal 133-145 [facility] Comment on above: Result Comment: This specimen has been REJECTED due to Laboratory criteria:Hemolyzed.TC (ICU) has been notified of need of recollection.10/10/24 0710 Joselito Johnson Kwabena Performed By: #### L 500.4050, L100.0100, L501.9520 ####[facility] [address] [place], [place], [address] Consultation - Cardiologyon 10-10-2024 Consultation - Cardiology Normal [facility] Consultation - Intensiviston 10-10-2024 Consultation - Container Washer Normal [facility] Determination of fraction of inspired oxygenOrdered By: Ross Crump on 10-10-2024 Determination of fraction of inspired oxygen 85.0 [facility] Echo Completeon 10-10-2024 Echo Complete Normal [facility] Echocardiogram study reportO rdered By: Prateek Smith on 10-10-2024 Study report [facility] Work Phone: Emergency Department Summary on 10-10-2024 Emergency Department Summary Normal [facility] H AND P Exam - Hospitaliston 10-10-2024 H&P Exam - Hospitalist Normal [facility] International normalized rat io (INR) calculationOrdered By: Ross Crump on 10-10-2024 International normalized ratio (INR) calculation 1.1 [facility] L499.0042on 10-10-2024 Trop T High Sen 407 ng/L Invalid Interpretation Code <=22 [facility] Comment on above: Result Comment: Crit ical Result(s) Called at:0401 by: Nilson Haven toPepper Swartzentruber??Results read back by same. Performed By: #### L 499.0042 ####[facility] [address] [place], [address] L499.0043on 10-10-2024 Trop T High Sen 477 ng/L Invalid Interpretation Code <=22 [facility] Comment on above: Result Comment: Crit ical Result(s) Called at 10/10/2024-08:10 by Joselito Amezquita Results read back by same. Performed By: #### L 499.0043 ####[facility] [address] [place], [place], [address] L501.4021on 10-10-2024 Trop T High Sen 409 ng/L Invalid Interpretation Code <=22 [facility] Comment on above: Result Comment: Crit ical Result(s) Called at: 0238 by: NILSON SIEGEL??Results read back by same. Performed By: #### L 501.4021 ####[facility] [address] [place], [address] L503.7505on 10-10-2024 Natriuretic peptide B (Bld) [Mass/Vol] 2932 pg/mL High <=900 [facility] Comment on above: Result Comment: Hear t Failure Unlikely: < 300 pg/mLHeart Failure Likely< 50 Years: > 450 pg/mL50-75 Years: > 900 pg/mL>75 Years: > 1800 pg/mL Performed By: #### L 501.5200, M200.1000, L503.7505, L100.0100, L503.6005, L500.2500, L503.5510, L500.3400 ####[facility] [address] [place], [place], [address] Lactic Acidon 10-10-2024 Lactate [Moles/Vol] 4.4 mmol/L Invalid Interpretation Code 0.0-2.0 [facility] Comment on above: Order Comment: Y Result Comment: Crit ical Result(s) Called at:0238 by: NILSON HERNANDEZ TO CHRISTAL??Results read back by same. Performed By: #### L 501.5200, M200.1000, L503.7505, L100.0100, L503.6005, L500.2500, L503.5510, L500.3400 ####[facility] [address] [place], [place], [address] Lactic acid measurementOrder ed By: Ross Crump on 10-10-2024 Lactic acid measurement 4.4 mmol/L High 0.0-2.0 [facility] Legionella Antigen Urineon 0 10-10-2024 LEGU Normal [facility] Comment on above: Performed By: #### M 300.4600, M300.4500 ####[facility] [address] [place], [place], [address] Leukocyte esterase Test stri p Ql (U)Ordered By: Ross Crump on 10-10-2024 Urine leukocyte esterase detection by dipstick 500 /ul High Negative [facility] Liver Profileon 10-10-2024 Albumin [Mass/Vol] 4.1 g/dL Normal 3.4-4.8 [facility] Comment on above: Performed By: #### L 501.5200, M200.1000, L503.7505, L100.0100, L503.6005, L500.2500, L503.5510, L500.3400 ####[facility] [address] [place], [place], [address] ALK PHOS 103 U/L Normal 40-129 [facility] Comment on above: Performed By: #### L 501.5200, M200.1000, L503.7505, L100.0100, L503.6005, L500.2500, L503.5510, L500.3400 ####[facility] [address] [place], [place], [address] ALT [Catalytic activity/Vol] 27 U/L Normal <=46 [facility] Comment on above: Performed By: #### L 501.5200, M200.1000, L503.7505, L100.0100, L503.6005, L500.2500, L503.5510, L500.3400 ####[facility] [address] [place], [address] AST [Catalytic activity/Vol] 80 U/L High <=37 [facility] Comment on above: Performed By: #### L 501.5200, M200.1000, L503.7505, L100.0100, L503.6005, L500.2500, L503.5510, L500.3400 ####[facility] [address] [place], [address] Bilirubin [Mass/Vol] 0.48 mg/dL Normal 0.00-1.30 [facility] Comment on above: Performed By: #### L 501.5200, M200.1000, L503.7505, L100.0100, L503.6005, L500.2500, L503.5510, L500.3400 ####[facility] [address] [place], [address] Bilirubin.direct [Mass/Vol] 0.22 mg/dL Normal 0.00-0.30 [facility] Comment on above: Performed By: #### L 501.5200, M200.1000, L503.7505, L100.0100, L503.6005, L500.2500, L503.5510, L500.3400 ####[facility] [address] [place], [address] Globulin (S) [Mass/Vol] 3.9 g/dL Normal 2.2-4.2 [facility] Comment on above: Performed By: #### L 501.5200, M200.1000, L503.7505, L100.0100, L503.6005, L500.2500, L503.5510, L500.3400 ####[facility] [address] [place], [address] T PROT 8.0 g/dL Normal 5.9-8.4 [facility] Comment on above: Performed By: #### L 501.5200, M200.1000, L503.7505, L100.0100, L503.6005, L500.2500, L503.5510, L500.3400 ####[facility] [address] [place], [address] M100.678on 10-10-2024 M100.678 SARS-CoV-2 (COVID 19 ) Negative INFLUENZA A Negative INFLUENZA B Negative RSV PCR Negative Normal [facility] Comment on above: Performed By: #### M 100.678 ####[facility] [address] [place], [address] Magnesiumon 10-10-2024 Magnesium [Mass/Vol] 1.6 mg/dL Normal 1.5-2.2 [facility] Comment on above: Performed By: #### L 501.5200, M200.1000, L503.7505, L100.0100, L503.6005, L500.2500, L503.5510, L500.3400 ####[facility] [address] [place], [place], [address] Microscopic analysis of urin e for red blood cells (RBC)Ordered By: Ross Crump on 10-10-2024 Microscopic analysis of urine for red blood cells (RBC) 0-5 SEEN /hpf 0-5 [facility] Nitrite Test strip Ql (U)Ord ered By: Ross Crump on 10-10-2024 Urine nitrite test by dipstick Positive High Negative [facility] No Panel InformationOrdered By: Ross Crump on 10-10-2024 ART [facility] L Radial [facility] Not entered [facility] AIRVO [facility] AIRVO 55L 85% [facility] 01:54:30 [facility] andes [facility] Yes [facility] 409 ng/L High <22 [facility] Oxygen (BldV) [Partial press ure]Ordered By: Ross Crump on 10-10-2024 Venous blood partial pressure of oxygen measurement 18 mmHg Low 25-40 [facility] Oxygen saturation measuremen tOrdered By: Ross Crump on 10-10-2024 Oxygen saturation measurement 92 % Low 95-99 [facility] Partial Thromboplast Timeon 10-10-2024 aPTT Coag (Bld) [Time] 98.3 s Invalid Interpretation Code 24.1-36.2 [facility] Comment on above: Result Comment: CRIT ICAL VALUE CALLED TO BLANCA ANDREW RN ICU10/10/24 1859 Etienne Coffey.RESULTS READ BACK BY SAME. Performed By: #### L 300.4310 ####[facility] [address] [place], [place], [address] aPTT Coag (Bld) [Time] 190.0 s Invalid Interpretation Code 24.1-36.2 [facility] Comment on above: Order Comment: CRITI MARIA GUADALUPE VALUE CALLED TO ASIWUOE87/06/25 1032 Juliana Morris.RESULTS READ BACK BY SAME. Performed By: #### L 300.4310 ####[facility] [address] [place], [address] aPTT Coag (Bld) [Time] 58.1 s High 24.1-36.2 [facility] Comment on above: Performed By: #### L 300.3900, L300.4310 ####[facility] [address] [place], [address] Partial pressure of carbon d ioxide measurementOrdered By: Ross Crump on 10-10-2024 Partial pressure of carbon dioxide measurement 43.9 mmHg 35-45 [facility] Partial pressure of oxygen m easurementOrdered By: Ross Crump on 10-10-2024 Partial pressure of oxygen measurement 72 mmHG Low 75-100 [facility] Protein Test strip Ql (U)Ord ered By: Ross Crump on 10-10-2024 Urine protein assay by test strip, semi-quantitative 100 mg/dl High Negative [facility] Prothrombin Time w/INRon INR Coag (PPP) [Relative time] 1.1 {INR} Normal [facility] Comment on above: Performed By: #### L 300.3900, L300.4310 ####[facility] [address] [place], [address] PT Coag (PPP) [Time] 14.0 s Normal 11.7-14.9 [facility] Comment on above: Performed By: #### L 300.3900, L300.4310 ####[facility] [address] [place], [address] Prothrombin timeOrdered By: Ross Crump on 10-10-2024 Prothrombin time 14.0 SECONDS 11.7-14.9 [facility] RESPIRATORY PANEL MOLECULARo n 10-10-2024 RP PANEL Normal [facility] Comment on above: Performed By: #### M 100.638 ####[facility] [address] [place], [address] Specific gravity (U) [Rel de nsity]Ordered By: Ross Crump on 10-10-2024 Urine specific gravity measurement 1.015 1.002-1.030 [facility] Squamous epithelial cells de tection in urine sediment by light microscopyOrdered By: Ross Crump on 10-10-2024 Squamous epithelial cells detection in urine sediment by light microscopy 0 SEEN /hpf [facility] Strep pneumoniae Antig(UR,CS F)on 10-10-2024 STPAG Normal [facility] Comment on above: Performed By: #### M 300.4600, M300.4500 ####[facility] [address] [place], [address] TSH DL <= 0.005 mIU/L QnOrde red By: Matt Penny on 10-10-2024 Serum or plasma thyroid stimulating hormone (TSH) measurement by high sensitivity met 1.590 uIU/mL 0.300-4.200 [facility] Thyroid Stim Hormone (TSH)on 10-10-2024 TSH 1.590 uIU/mL Normal 0.300-4.200 [facility] Comment on above: Order Comment: ANUM W. PREVIOUS SPECIMEN REJECTED DUE TOHEMOLYSIS. 10/10/24 0711 Joselito Yuan. Performed By: #### L 501.9520, L500.4050 ####[facility] [address] [place], [place], [address] TSH 2.030 uIU/mL Normal 0.300-4.200 [facility] Comment on above: Order Comment: This specimen has been REJECTED due to Laboratory criteria:Hemolyzed.TC (ICU) has been notified of need of recollection.10/10/24 0710 Joselito Yuan Result Comment: This specimen has been REJECTED due to Laboratory criteria:Hemolyzed.TC (ICU) has been notified of need of recollection.10/10/24 0710 Joselito Yuan Performed By: #### L 500.4050, L100.0100, L501.9520 ####[facility] [address] [place], [place], [address] Total carbon dioxide measure mentOrdered By: Ross Crump on 10-10-2024 Total carbon dioxide measurement 23 mmol/L [facility] Troponin T.cardiac High sens itivity method [Mass/Vol]Ordered By: Kendra Yuan on 10-10-2024 Troponin T.cardiac [Mass/volume] in Serum or Plasma by High sensitivity method 477 ng/L High <22 [facility] Troponin T.cardiac High sens itivity method [Mass/Vol]Ordered By: Ross Crump on 10-10-2024 Troponin T.cardiac [Mass/volume] in Serum or Plasma by High sensitivity method 407 ng/L High <22 [facility] Urinalysis, Completeon 10-10 BACTERIA 2+ /hpf Normal None Seen [facility] Comment on above: Order Comment: JASWINDER TER SPECIMEN Performed By: #### M 100.2200, L400.0001 ####[facility] [address] [place], [address] RBC 0-5 SEEN Normal 0-5 [facility] Comment on above: Order Comment: JASWINDER TER SPECIMEN Performed By: #### M 100.2200, L400.0001 ####[facility] [address] [place], [address] WBC 25-50 SEEN Normal 0-5 [facility] Comment on above: Order Comment: JASWINDER TER SPECIMEN Performed By: #### M 100.2200, L400.0001 ####[facility] [address] [place], [address] EPI,SQUAMOUS 0 SEEN Normal 0-5 [facility] Comment on above: Order Comment: JASWINDER TER SPECIMEN Performed By: #### M 100.2200, L400.0001 ####[facility] [address] [place], [address] Mucus Ql (Urine sed) 0 SEEN Normal [facility] Comment on above: Order Comment: JASWINDER TER SPECIMEN Performed By: #### M 100.2200, L400.0001 ####[facility] [address] [place], [address] Urine blood detectionOrdered By: Ross Crump on 10-10-2024 Urine blood detection 150 /ul High Negative [facility] Urine cultureOrdered By: Andrzej Crump on 10-10-2024 Urine culture Klebsiella pneumonia e sp pneum Abnormal [facility] Urine culture Presumptive C albicans Abnormal [facility] Urine culture Escherichia coli Abnormal [facility] Urine glucose detectionOrder ed By: Ross Crump on 10-10-2024 Urine glucose detection Normal mg/dl Normal [facility] Urine total bilirubin detect ion by test stripOrdered By: Ross Crump on 10-10-2024 Urine total bilirubin detection by test strip Negative Negative [facility] Venous Blood Gason Blood Gas Type MYLES Normal [facility] Comment on above: Performed By: #### L 9000.0810 ####[facility] [address] [place], [address] CO2 [Moles/Vol] 28 mmol/L Normal 23-33 [facility] Comment on above: Performed By: #### L 9000.0810 ####[facility] [address] [place], [address] FI02 6.0 Normal [facility] Comment on above: Performed By: #### L 900.0810 ####[facility] [address] [place], [address] HCO3 (Bld) [Moles/Vol] 27 mmol/L High 22-26 [facility] Comment on above: Performed By: #### L 900.0810 ####[facility] [address] [place], [address] O2 Delivery Dev Cannula Normal [facility] Comment on above: Performed By: #### L 900.0810 ####[facility] [address] [place], [address] Read Back By Yes [facility] Comment on above: Performed By: #### L 9000.0810 ####[facility] [address] [place], [address] Results To andes Normal [facility] Comment on above: Performed By: #### L 9000.0810 ####[facility] [address] [place], [address] SITE Not entered [facility] Comment on above: Performed By: #### L 9000.0810 ####[facility] [address] [place], [address] Time Given 01:54:30 [facility] Comment on above: Performed By: #### L 9000.0810 ####[facility] [address] [place], [address] VBG BE 2 mmol/L Normal -1.0-3.5 [facility] Comment on above: Performed By: #### L 9000.0810 ####[facility] [address] [place], [address] VBG pCO2 44.8 mmHg Normal 41-51 [facility] Comment on above: Performed By: #### L 9000.0810 ####[facility] [address] [place], [address] VBG pH 7.39 Normal 7.32-7.42 [facility] Comment on above: Performed By: #### L 9000.0810 ####[facility] [address] [place], [address] VBG PO2 18 mmHg Invalid Interpretation Code 25-40 [facility] Comment on above: Performed By: #### L 9000.0810 ####[facility] [address] [place], [address] VBG SO2 25 Low 50-70 [facility] Comment on above: Performed By: #### L 9000.0810 ####[facility] [address] [place], [address] Venous blood ammonia measure mentOrdered By: Ross Crump on 10-10-2024 Venous blood ammonia measurement 12.6 umol/L Low 16-60 [facility] Venous blood bicarbonate henna surementOrdered By: Ross Crump on 10-10-2024 Venous blood bicarbonate measurement 27 mmol/L High 22-26 [facility] Venous blood oxygen saturati on measurementOrdered By: Ross Crump on 10-10-2024 Venous blood oxygen saturation measurement 25 % Low 50-70 [facility] White blood cell countOrdere d By: Ross Crump on 10-10-2024 White blood cell count 25-50 SEEN /hpf 0-5 [facility] pH (BldV)Ordered By: Ross Crump on 10-10-2024 Venous blood pH measurement 7.39 7.32-7.42 [facility] pH (U)Ordered By: Albert on 10-10-2024 Urine pH 5.0 5.0 - 8.0 [facility] pH (Unsp spec)Ordered By: Marifer Crump on 10-10-2024 Measurement, pH 7.31 Low 7.35-7.45 [facility] CNPNon 09-13-2024 GILLIAN Telephone (UROLWS) ISAIAS VEGA ([id number]) 1955 M Date Time Provider Department 09/13/24 KENZIE DREW During your visit today, we recorded the following information about you: Bozena Faulkner LPN 09/13/2024 4:13 PM Signed Received order for that needs signed for change of catheter (SPT) from [facility]. Provided in Kenzie Drew CNP, DNP to sign on next clinic day. MAICOL Guardado Daniel, APRN.LORRIE [facility] 09/16/2024 2:27 PM Signed Order signed - please fax back. Kenzie Drew APRN.CNP, DNP Clay, Kimberly, LPN 09/17/2024 10:38 AM Signed Faxed orders signed by Kenzie Miles APRN, CNP, DNP to [facility]. 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 Small bowel obstruction (HCC) [K56.609] 12/02/2023 12/04/2023 Severe protein-calorie malnutrition (HCC) [E43] 12/04/2023 Type 2 diabetes mellitus with hyperglycemia, wi*12/06/2023 S/P small bowel resection [Z90.49] 12/08/2023 Feeding difficulties [R63.30] 12/08/2023 On total parenteral nutrition (TPN) [Z78.9] 12/08/2023 Therapeutic drug monitoring [Z51.81] 12/08/2023 Severe protein-calorie malnutrition (Kim: les*12/08/2023 Insulin dose changed ([facility]) [Z79.4] 12/09/2023 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 Normal [facility] CNOVon 09-09-2024 CNOV Office Visit (UROLMD ) SILVIAISAIAS ([id number]) 1955 M Date Time Provider Department 09/09/24 1:30 PM KENZIE DREW During your visit today, we recorded the following information about you: Kenzie Drew APRN.CNP, DNP 09/09/2024 4:26 PM Signed [facility] MALE PATIENT - HISTORY AND PHYSICAL EXAMINATION PATIENT: Isaias Silvia (68 year old) PCP: Kendy Modi MD CHIEF COMPLAINT: chronic urinary retention and had a recent suprapubic catheter placement by IR. HISTORY OF PRESENT ILLNESS: 68 year old year old male with chronic urinary retention and had a recent suprapubic catheter placement by IR. Past medical Hx: 2 CVA with left-sided hemiplegia, diabetes, care home anticoag - Eliquis, colorectal cancer, ileostomy for [...] Anxiety and depression CAD (coronary artery disease) [place] 2008 CVA (cerebral infarction) DM (diabetes mellitus) [...] LINE INSERT/CONSULT 12/07/2023 REVSC OPN/PRG FEM/POP W/ANGIOPLASTY [facility] 07-01-15 REVSC OPN/PRG FEM/POP W/ANGIOPLASTY [facility] 08-14-15 REVSC OPN/PRQ TIB/DIANNA W/ANGIOPLASTY [facility] 07-01-15 REVSC OPN/PRQ TIB/DIANNA W/[facility]LASTY [facility] [...] disintegrating ( (more content not included)... Normal [facility] Zoltan 09-09-2024 [facility] ISAI[facility]GA ([id number]) 1955 M Date Time Provider Department 09/09/24 [facility]AD[facility] During your visit today, we recorded the following information about you: Edgardo Hurtado PSS 09/09/2024 2:30 PM Signed Thank you for the referral of your patient to [facility]. At this time, we are at capacity and are unable to accept your patient. In order to help your patient receive quality home care, we have included reputable agencies that service this area: [facility] [phone] or [facility] [phone]. Please contact this agency and they will work with your patient to arrange timely services. Thank you, TOSIN Eckert 09/09/2024 2:29 PM Dionne Clinton RN 09/10/2024 10:26 AM Signed Called and left message that [facility]. Sent Orders, OV notes, and Demographics to [facility] at [phone], and [facility] fax# [phone], both fax confirmations received. I called and advised I faxed orders to both agencies. Advised to call if neither agency reaches out. Allergies As of Date: 09/09/2024 (No Known Allergies) Date Reviewed: 09/09/2024 Reviewed by: Kenzie Drew APRN.JUNIOR ANALYST, DNP - Fully Assessed Reason for Visit: Home [...] 05/26/[address] (HCC) [Z93.3] 05/26/2020 [facility] (current) use of 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/anti*1 Small bowel obstruction [...] (HCC) [K55.049] (more content not included)... Normal [facility] Basic Metabolic Profile (BMP )on 09-03-2024 BUN Normal 02-21 [facility] Comment on above: Result Comment: Canc elled via OM: Order cancelled - Patient discharged Performed By: #### L 500.2500, L100.0100 ####[facility] [address] [place], [address] BUN/CRE Normal 05-26 [facility] Comment on above: Result Comment: Canc elled via OM: Order cancelled - Patient discharged Performed By: #### L 500.2500, L100.0100 ####[facility] [address] [place], [address] CA,Total Normal 8.5-10.1 [facility] Comment on above: Result Comment: Canc elled via OM: Order cancelled - Patient discharged Performed By: #### L 500.2500, L100.0100 ####[facility] [address] [place], [address] CL Normal 98-107 [facility] Comment on above: Result Comment: Canc elled via OM: Order cancelled - Patient discharged Performed By: #### L 500.2500, L100.0100 ####[facility] [address] [place], [address] CO2 Normal 21.0-32.0 [facility] Comment on above: Result Comment: Canc elled via OM: Order cancelled - Patient discharged Performed By: #### L 500.2500, L100.0100 ####[facility] [address] [place], [address] CREAT,SERUM Normal 0.70-1.30 [facility] Comment on above: Result Comment: Canc elled via OM: Order cancelled - Patient discharged Performed By: #### L 500.2500, L100.0100 ####[facility] [address] [place], [address] EST GFR Normal >60 [facility] Comment on above: Result Comment: Canc elled via OM: Order cancelled - Patient discharged Performed By: #### L 500.2500, L100.0100 ####[facility] [address] [place], [address] EST GFR - AA Normal >60 [facility] Comment on above: Result Comment: Canc elled via OM: Order cancelled - Patient discharged Performed By: #### L 500.2500, L100.0100 ####[facility] [address] [place], [address] GAP Normal 5-15 [facility] Comment on above: Result Comment: Canc elled via OM: Order cancelled - Patient discharged Performed By: #### L 500.2500, L100.0100 ####[facility] [address] [place], [address] GLU Normal 74-106 [facility] Comment on above: Result Comment: Canc elled via OM: Order cancelled - Patient discharged Performed By: #### L 500.2500, L100.0100 ####[facility] [address] [place], [address] Potassium Normal 3.5-5.1 [facility] Comment on above: Result Comment: Canc elled via OM: Order cancelled - Patient discharged Performed By: #### L 500.2500, L100.0100 ####[facility] [address] [place], [address] Basic Metabolic Profile (BMP) Normal 136-145 [facility] Comment on above: Result Comment: Canc elled via OM: Order cancelled - Patient discharged Performed By: #### L 500.2500, L100.0100 ####[facility] [address] [place], [address] CBC W/Diff, Automatedon 08-08 Absolute Neut Normal 2.0-7.7 [facility] Comment on above: Result Comment: Canc elled via OM: Order cancelled - Patient discharged Performed By: #### L 500.2500, L100.0100 ####[facility] [address] [place], [address] HCT Normal 40-54 [facility] Comment on above: Result Comment: Canc elled via OM: Order cancelled - Patient discharged Performed By: #### L 500.2500, L100.0100 ####[facility] [address] [place], [address] HGB Normal 13.0-16.5 [facility] Comment on above: Result Comment: Canc elled via OM: Order cancelled - Patient discharged Performed By: #### L 500.2500, L100.0100 ####[facility] [address] [place], [address] MCH Normal 27.0-32.0 [facility] Comment on above: Result Comment: Canc elled via OM: Order cancelled - Patient discharged Performed By: #### L 500.2500, L100.0100 ####[facility] [address] [place], [address] MCHC Normal 32-36 [facility] Comment on above: Result Comment: Canc elled via OM: Order cancelled - Patient discharged Performed By: #### L 500.2500, L100.0100 ####[facility] [address] [place], [address] MCV Normal 80-94 [facility] Comment on above: Result Comment: Canc elled via OM: Order cancelled - Patient discharged Performed By: #### L 500.2500, L100.0100 ####[facility] [address] [place], [address] NEUT% Normal 47-70 [facility] Comment on above: Result Comment: Canc elled via OM: Order cancelled - Patient discharged Performed By: #### L 500.2500, L100.0100 ####[facility] [address] [place], [address] PLT Normal 150-450 [facility] Comment on above: Result Comment: Canc elled via OM: Order cancelled - Patient discharged Performed By: #### L 500.2500, L100.0100 ####[facility] [address] [place], [address] RBC Normal 4.6-6.2 [facility] Comment on above: Result Comment: Canc elled via OM: Order cancelled - Patient discharged Performed By: #### L 500.2500, L100.0100 ####[facility] [address] [place], [address] RDW CV Normal 11.6-14.6 [facility] Comment on above: Result Comment: Canc elled via OM: Order cancelled - Patient discharged Performed By: #### L 500.2500, L100.0100 ####[facility] [address] [place], [address] RDW SD Normal 35.1-43.9 [facility] Comment on above: Result Comment: Canc elled via OM: Order cancelled - Patient discharged Performed By: #### L 500.2500, L100.0100 ####[facility] [address] [place], [address] WBC Normal 4.4-11.0 [facility] Comment on above: Result Comment: Canc elled via OM: Order cancelled - Patient discharged Performed By: #### L 500.2500, L100.0100 ####[facility] [address] [place], [address] Basic Metabolic Profile (BMP )on 09-02-2024 BUN Normal 7-18 [facility] Comment on above: Result Comment: Canc elled via OM: Order cancelled - Patient discharged Performed By: #### L 100.0100, L500.2500 ####[facility] [address] [place], [address] BUN/CRE Normal 10-20 [facility] Comment on above: Result Comment: Canc elled via OM: Order cancelled - Patient discharged Performed By: #### L 100.0100, L500.2500 ####[facility] [address] [place], [address] CA,Total Normal 8.5-10.1 [facility] Comment on above: Result Comment: Canc elled via OM: Order cancelled - Patient discharged Performed By: #### L 100.0100, L500.2500 ####[facility] [address] [place], [address] CL Normal 98-107 [facility] Comment on above: Result Comment: Canc elled via OM: Order cancelled - Patient discharged Performed By: #### L 100.0100, L500.2500 ####[facility] [address] [place], [address] CO2 Normal 21.0-32.0 [facility] Comment on above: Result Comment: Canc elled via OM: Order cancelled - Patient discharged Performed By: #### L 100.0100, L500.2500 ####[facility] [address] [place], [address] CREAT,SERUM Normal 0.70-1.30 [facility] Comment on above: Result Comment: Canc elled via OM: Order cancelled - Patient discharged Performed By: #### L 100.0100, L500.2500 ####[facility] [address] [place], [address] EST GFR Normal >60 [facility] Comment on above: Result Comment: Canc elled via OM: Order cancelled - Patient discharged Performed By: #### L 100.0100, L500.2500 ####[facility] [address] [place], [address] EST GFR - AA Normal >60 [facility] Comment on above: Result Comment: Canc elled via OM: Order cancelled - Patient discharged Performed By: #### L 100.0100, L500.2500 ####[facility] [address] [place], [address] GAP Normal 5-15 [facility] Comment on above: Result Comment: Canc elled via OM: Order cancelled - Patient discharged Performed By: #### L 100.0100, L500.2500 ####[facility] [address] [place], [address] GLU Normal 74-106 [facility] Comment on above: Result Comment: Canc elled via OM: Order cancelled - Patient discharged Performed By: #### L 100.0100, L500.2500 ####[facility] [address] [place], [address] Potassium Normal 3.5-5.1 [facility] Comment on above: Result Comment: Canc elled via OM: Order cancelled - Patient discharged Performed By: #### L 100.0100, L500.2500 ####[facility] [address] [place], [address] Basic Metabolic Profile (BMP) Normal 136-145 [facility] Comment on above: Result Comment: Canc elled via OM: Order cancelled - Patient discharged Performed By: #### L 100.0100, L500.2500 ####[facility] [address] [place], [address] CBC W/Diff, Automatedon -2 Absolute Neut Normal 2.0-7.7 [facility] Comment on above: Result Comment: Canc elled via OM: Order cancelled - Patient discharged Performed By: #### L 100.0100, L500.2500 ####[facility] [address] [place], [address] HCT Normal 40-54 [facility] Comment on above: Result Comment: Canc elled via OM: Order cancelled - Patient discharged Performed By: #### L 100.0100, L500.2500 ####[facility] [address] [place], [address] HGB Normal 13.0-16.5 [facility] Comment on above: Result Comment: Canc elled via OM: Order cancelled - Patient discharged Performed By: #### L 100.0100, L500.2500 ####[facility] [address] [place], [address] MCH Normal 27.0-32.0 [facility] Comment on above: Result Comment: Canc elled via OM: Order cancelled - Patient discharged Performed By: #### L 100.0100, L500.2500 ####[facility] [address] [place], [address] MCHC Normal 32-36 [facility] Comment on above: Result Comment: Canc elled via OM: Order cancelled - Patient discharged Performed By: #### L 100.0100, L500.2500 ####[facility] [address] [place], [address] MCV Normal 80-94 [facility] Comment on above: Result Comment: Canc elled via OM: Order cancelled - Patient discharged Performed By: #### L 100.0100, L500.2500 ####[facility] [address] [place], [address] NEUT% Normal 47-70 [facility] Comment on above: Result Comment: Canc elled via OM: Order cancelled - Patient discharged Performed By: #### L 100.0100, L500.2500 ####[facility] [address] [place], [address] PLT Normal 150-450 [facility] Comment on above: Result Comment: Canc elled via OM: Order cancelled - Patient discharged Performed By: #### L 100.0100, L500.2500 ####[facility] [address] [place], [address] RBC Normal 4.6-6.2 [facility] Comment on above: Result Comment: Canc elled via OM: Order cancelled - Patient discharged Performed By: #### L 100.0100, L500.2500 ####[facility] [address] [place], [address] RDW CV Normal 11.6-14.6 [facility] Comment on above: Result Comment: Canc elled via OM: Order cancelled - Patient discharged Performed By: #### L 100.0100, L500.2500 ####[facility] [address] [place], [address] RDW SD Normal 35.1-43.9 [facility] Comment on above: Result Comment: Canc elled via OM: Order cancelled - Patient discharged Performed By: #### L 100.0100, L500.2500 ####[facility] [address] [place], [address] WBC Normal 4.4-11.0 [facility] Comment on above: Result Comment: Canc elled via OM: Order cancelled - Patient discharged Performed By: #### L 100.0100, L500.2500 ####[facility] [address] [place], [address] Basic Metabolic Profile (BMP )on 09-01-2024 BUN Normal 7-18 [facility] Comment on above: Result Comment: Canc elled via OM: Order cancelled - Patient discharged Performed By: #### L 500.2500, L100.0100 ####[facility] [address] [place], [address] BUN/CRE Normal 10-20 [facility] Comment on above: Result Comment: Canc elled via OM: Order cancelled - Patient discharged Performed By: #### L 500.2500, L100.0100 ####[facility] [address] [place], [address] CA,Total Normal 8.5-10.1 [facility] Comment on above: Result Comment: Canc elled via OM: Order cancelled - Patient discharged Performed By: #### L 500.2500, L100.0100 ####[facility] [address] [place], [address] CL Normal 98-107 [facility] Comment on above: Result Comment: Canc elled via OM: Order cancelled - Patient discharged Performed By: #### L 500.2500, L100.0100 ####[facility] [address] [place], [address] CO2 Normal 21.0-32.0 [facility] Comment on above: Result Comment: Canc elled via OM: Order cancelled - Patient discharged Performed By: #### L 500.2500, L100.0100 ####[facility] [address] [place], [address] CREAT,SERUM Normal 0.70-1.30 [facility] Comment on above: Result Comment: Canc elled via OM: Order cancelled - Patient discharged Performed By: #### L 500.2500, L100.0100 ####[facility] [address] [place], [address] EST GFR Normal >60 [facility] Comment on above: Result Comment: Canc elled via OM: Order cancelled - Patient discharged Performed By: #### L 500.2500, L100.0100 ####[facility] [address] [place], [address] EST GFR - AA Normal >60 [facility] Comment on above: Result Comment: Canc elled via OM: Order cancelled - Patient discharged Performed By: #### L 500.2500, L100.0100 ####[facility] [address] [place], [address] GAP Normal 5-15 [facility] Comment on above: Result Comment: Canc elled via OM: Order cancelled - Patient discharged Performed By: #### L 500.2500, L100.0100 ####[facility] [address] [place], [address] GLU Normal 74-106 [facility] Comment on above: Result Comment: Canc elled via OM: Order cancelled - Patient discharged Performed By: #### L 500.2500, L100.0100 ####[facility] [address] [place], [address] Potassium Normal 3.5-5.1 [facility] Comment on above: Result Comment: Canc elled via OM: Order cancelled - Patient discharged Performed By: #### L 500.2500, L100.0100 ####[facility] [address] [place], [address] Basic Metabolic Profile (BMP) Normal 136-145 [facility] Comment on above: Result Comment: Canc elled via OM: Order cancelled - Patient discharged Performed By: #### L 500.2500, L100.0100 ####[facility] [address] [place], [address] CBC W/Diff, Automatedon 01-2 Absolute Neut Normal 2.0-7.7 [facility] Comment on above: Result Comment: Canc elled via OM: Order cancelled - Patient discharged Performed By: #### L 500.2500, L100.0100 ####[facility] [address] [place], [address] HCT Normal 40-54 [facility] Comment on above: Result Comment: Canc elled via OM: Order cancelled - Patient discharged Performed By: #### L 500.2500, L100.0100 ####[facility] [address] [place], [address] HGB Normal 13.0-16.5 [facility] Comment on above: Result Comment: Canc elled via OM: Order cancelled - Patient discharged Performed By: #### L 500.2500, L100.0100 ####[facility] [address] [place], [address] MCH Normal 27.0-32.0 [facility] Comment on above: Result Comment: Canc elled via OM: Order cancelled - Patient discharged Performed By: #### L 500.2500, L100.0100 ####[facility] [address] [place], [address] MCHC Normal 32-36 [facility] Comment on above: Result Comment: Canc elled via OM: Order cancelled - Patient discharged Performed By: #### L 500.2500, L100.0100 ####[facility] [address] [place], [address] MCV Normal 80-94 [facility] Comment on above: Result Comment: Canc elled via OM: Order cancelled - Patient discharged Performed By: #### L 500.2500, L100.0100 ####[facility] [address] [place], [address] NEUT% Normal 47-70 [facility] Comment on above: Result Comment: Canc elled via OM: Order cancelled - Patient discharged Performed By: #### L 500.2500, L100.0100 ####[facility] [address] [place], [address] PLT Normal 150-450 [facility] Comment on above: Result Comment: Canc elled via OM: Order cancelled - Patient discharged Performed By: #### L 500.2500, L100.0100 ####[facility] [address] [place], [address] RBC Normal 4.6-6.2 [facility] Comment on above: Result Comment: Canc elled via OM: Order cancelled - Patient discharged Performed By: #### L 500.2500, L100.0100 ####[facility] [address] [place], [address] RDW CV Normal 11.6-14.6 [facility] Comment on above: Result Comment: Canc elled via OM: Order cancelled - Patient discharged Performed By: #### L 500.2500, L100.0100 ####[facility] [address] [place], [address] RDW SD Normal 35.1-43.9 [facility] Comment on above: Result Comment: Canc elled via OM: Order cancelled - Patient discharged Performed By: #### L 500.2500, L100.0100 ####[facility] [address] [place], [address] WBC Normal 4.4-11.0 [facility] Comment on above: Result Comment: Canc elled via OM: Order cancelled - Patient discharged Performed By: #### L 500.2500, L100.0100 ####[facility] [address] [place], [address] Basic Metabolic Profile (BMP )on 08-31-2024 BUN Normal 7-18 [facility] Comment on above: Result Comment: Canc elled via OM: Order cancelled - Patient discharged Performed By: #### L 100.0100, L500.2500 ####[facility] [address] [place], [address] BUN/CRE Normal 10-20 [facility] Comment on above: Result Comment: Canc elled via OM: Order cancelled - Patient discharged Performed By: #### L 100.0100, L500.2500 ####[facility] [address] [place], [address] CA,Total Normal 8.5-10.1 [facility] Comment on above: Result Comment: Canc elled via OM: Order cancelled - Patient discharged Performed By: #### L 100.0100, L500.2500 ####[facility] [address] [place], [address] CL Normal 98-107 [facility] Comment on above: Result Comment: Canc elled via OM: Order cancelled - Patient discharged Performed By: #### L 100.0100, L500.2500 ####[facility] [address] [place], [address] CO2 Normal 21.0-32.0 [facility] Comment on above: Result Comment: Canc elled via OM: Order cancelled - Patient discharged Performed By: #### L 100.0100, L500.2500 ####[facility] [address] [place], [address] CREAT,SERUM Normal 0.70-1.30 [facility] Comment on above: Result Comment: Canc elled via OM: Order cancelled - Patient discharged Performed By: #### L 100.0100, L500.2500 ####[facility] [address] [place], [address] EST GFR Normal >60 [facility] Comment on above: Result Comment: Canc elled via OM: Order cancelled - Patient discharged Performed By: #### L 100.0100, L500.2500 ####[facility] [address] [place], [address] EST GFR - AA Normal >60 [facility] Comment on above: Result Comment: Canc elled via OM: Order cancelled - Patient discharged Performed By: #### L 100.0100, L500.2500 ####[facility] [address] [place], [address] GAP Normal 5-15 [facility] Comment on above: Result Comment: Canc elled via OM: Order cancelled - Patient discharged Performed By: #### L 100.0100, L500.2500 ####[facility] [address] [place], [address] GLU Normal 74-106 [facility] Comment on above: Result Comment: Canc elled via OM: Order cancelled - Patient discharged Performed By: #### L 100.0100, L500.2500 ####[facility] [address] [place], [address] Potassium Normal 3.5-5.1 [facility] Comment on above: Result Comment: Canc elled via OM: Order cancelled - Patient discharged Performed By: #### L 100.0100, L500.2500 ####[facility] [address] [place], [address] Basic Metabolic Profile (BMP) Normal 136-145 [facility] Comment on above: Result Comment: Canc elled via OM: Order cancelled - Patient discharged Performed By: #### L 100.0100, L500.2500 ####[facility] [address] [place], [address] CBC W/Diff, Automatedon 01-2 -2024 Absolute Neut Normal 2.0-7.7 [facility] Comment on above: Result Comment: Canc elled via OM: Order cancelled - Patient discharged Performed By: #### L 100.0100, L500.2500 ####[facility] [address] [place], [address] HCT Normal 40-54 [facility] Comment on above: Result Comment: Canc elled via OM: Order cancelled - Patient discharged Performed By: #### L 100.0100, L500.2500 ####[facility] [address] [place], [address] HGB Normal 13.0-16.5 [facility] Comment on above: Result Comment: Canc elled via OM: Order cancelled - Patient discharged Performed By: #### L 100.0100, L500.2500 ####[facility] [address] [place], [address] MCH Normal 27.0-32.0 [facility] Comment on above: Result Comment: Canc elled via OM: Order cancelled - Patient discharged Performed By: #### L 100.0100, L500.2500 ####[facility] [address] [place], [address] MCHC Normal 32-36 [facility] Comment on above: Result Comment: Canc elled via OM: Order cancelled - Patient discharged Performed By: #### L 100.0100, L500.2500 ####[facility] [address] [place], [address] MCV Normal 80-94 [facility] Comment on above: Result Comment: Canc elled via OM: Order cancelled - Patient discharged Performed By: #### L 100.0100, L500.2500 ####[facility] [address] [place], [address] NEUT% Normal 47-70 [facility] Comment on above: Result Comment: Canc elled via OM: Order cancelled - Patient discharged Performed By: #### L 100.0100, L500.2500 ####[facility] [address] [place], [address] PLT Normal 150-450 [facility] Comment on above: Result Comment: Canc elled via OM: Order cancelled - Patient discharged Performed By: #### L 100.0100, L500.2500 ####[facility] [address] [place], [address] RBC Normal 4.6-6.2 [facility] Comment on above: Result Comment: Canc elled via OM: Order cancelled - Patient discharged Performed By: #### L 100.0100, L500.2500 ####[facility] [address] [place], [address] RDW CV Normal 11.6-14.6 [facility] Comment on above: Result Comment: Canc elled via OM: Order cancelled - Patient discharged Performed By: #### L 100.0100, L500.2500 ####[facility] [address] [place], [address] RDW SD Normal 35.1-43.9 [facility] Comment on above: Result Comment: Canc elled via OM: Order cancelled - Patient discharged Performed By: #### L 100.0100, L500.2500 ####[facility] [address] [place], [address] WBC Normal 4.4-11.0 [facility] Comment on above: Result Comment: Canc elled via OM: Order cancelled - Patient discharged Performed By: #### L 100.0100, L500.2500 ####[facility] [address] [place], [address] Culture, Blood (WB)on 2024 CUB Blood cultures x2, from two different sites No growth in 5 days. Normal [facility] Comment on above: Performed By: #### M 200.1000, L503.6005, L100.0100, L500.4050, L300.4310, L300.3900 ####[facility] [address] [place], [address] Basic Metabolic Profile (BMP )on 08-30-2024 BUN Normal 7-18 [facility] Comment on above: Result Comment: Canc elled via OM: Order cancelled - Patient discharged Performed By: #### L 500.2500, L100.0100 ####[facility] [address] [place], [address] BUN/CRE Normal 10-20 [facility] Comment on above: Result Comment: Canc elled via OM: Order cancelled - Patient discharged Performed By: #### L 500.2500, L100.0100 ####[facility] [address] [place], [address] CA,Total Normal 8.5-10.1 [facility] Comment on above: Result Comment: Canc elled via OM: Order cancelled - Patient discharged Performed By: #### L 500.2500, L100.0100 ####[facility] [address] [place], [address] CL Normal 98-107 [facility] Comment on above: Result Comment: Canc elled via OM: Order cancelled - Patient discharged Performed By: #### L 500.2500, L100.0100 ####[facility] [address] [place], [address] CO2 Normal 21.0-32.0 [facility] Comment on above: Result Comment: Canc elled via OM: Order cancelled - Patient discharged Performed By: #### L 500.2500, L100.0100 ####[facility] [address] [place], [address] CREAT,SERUM Normal 0.70-1.30 [facility] Comment on above: Result Comment: Canc elled via OM: Order cancelled - Patient discharged Performed By: #### L 500.2500, L100.0100 ####[facility] [address] [place], [address] EST GFR Normal >60 [facility] Comment on above: Result Comment: Canc elled via OM: Order cancelled - Patient discharged Performed By: #### L 500.2500, L100.0100 ####[facility] [address] [place], [address] EST GFR - AA Normal >60 [facility] Comment on above: Result Comment: Canc elled via OM: Order cancelled - Patient discharged Performed By: #### L 500.2500, L100.0100 ####[facility] [address] [place], [address] GAP Normal 5-15 [facility] Comment on above: Result Comment: Canc elled via OM: Order cancelled - Patient discharged Performed By: #### L 500.2500, L100.0100 ####[facility] [address] [place], [address] GLU Normal 74-106 [facility] Comment on above: Result Comment: Canc elled via OM: Order cancelled - Patient discharged Performed By: #### L 500.2500, L100.0100 ####[facility] [address] [place], [address] Potassium Normal 3.5-5.1 [facility] Comment on above: Result Comment: Canc elled via OM: Order cancelled - Patient discharged Performed By: #### L 500.2500, L100.0100 ####[facility] [address] [place], [address] Basic Metabolic Profile (BMP) Normal 136-145 [facility] Comment on above: Result Comment: Canc elled via OM: Order cancelled - Patient discharged Performed By: #### L 500.2500, L100.0100 ####[facility] [address] [place], [address] CBC W/Diff, Automatedon -2 Absolute Neut Normal 2.0-7.7 [facility] Comment on above: Result Comment: Canc elled via OM: Order cancelled - Patient discharged Performed By: #### L 500.2500, L100.0100 ####[facility] [address] [place], [address] HCT Normal 40-54 [facility] Comment on above: Result Comment: Canc elled via OM: Order cancelled - Patient discharged Performed By: #### L 500.2500, L100.0100 ####[facility] [address] [place], [address] HGB Normal 13.0-16.5 [facility] Comment on above: Result Comment: Canc elled via OM: Order cancelled - Patient discharged Performed By: #### L 500.2500, L100.0100 ####[facility] [address] [place], [address] MCH Normal 27.0-32.0 [facility] Comment on above: Result Comment: Canc elled via OM: Order cancelled - Patient discharged Performed By: #### L 500.2500, L100.0100 ####[facility] [address] [place], [address] MCHC Normal 32-36 [facility] Comment on above: Result Comment: Canc elled via OM: Order cancelled - Patient discharged Performed By: #### L 500.2500, L100.0100 ####[facility] [address] [place], [address] MCV Normal 80-94 [facility] Comment on above: Result Comment: Canc elled via OM: Order cancelled - Patient discharged Performed By: #### L 500.2500, L100.0100 ####[facility] [address] [place], [address] NEUT% Normal 47-70 [facility] Comment on above: Result Comment: Canc elled via OM: Order cancelled - Patient discharged Performed By: #### L 500.2500, L100.0100 ####[facility] [address] [place], [address] PLT Normal 150-450 [facility] Comment on above: Result Comment: Canc elled via OM: Order cancelled - Patient discharged Performed By: #### L 500.2500, L100.0100 ####[facility] [address] [place], [address] RBC Normal 4.6-6.2 [facility] Comment on above: Result Comment: Canc elled via OM: Order cancelled - Patient discharged Performed By: #### L 500.2500, L100.0100 ####[facility] [address] [place], [address] RDW CV Normal 11.6-14.6 [facility] Comment on above: Result Comment: Canc elled via OM: Order cancelled - Patient discharged Performed By: #### L 500.2500, L100.0100 ####[facility] [address] [place], [address] RDW SD Normal 35.1-43.9 [facility] Comment on above: Result Comment: Canc elled via OM: Order cancelled - Patient discharged Performed By: #### L 500.2500, L100.0100 ####[facility] [address] [place], [address] WBC Normal 4.4-11.0 [facility] Comment on above: Result Comment: Canc elled via OM: Order cancelled - Patient discharged Performed By: #### L 500.2500, L100.0100 ####[facility] [address] [place], [address] Basic Metabolic Profile (BMP )on 08-29-2024 BUN Normal 7-18 [facility] Comment on above: Result Comment: Canc elled via OM: Order cancelled - Patient discharged Performed By: #### L 500.2500, L100.0100 ####[facility] [address] [place], [address] BUN/CRE Normal 10-20 [facility] Comment on above: Result Comment: Canc elled via OM: Order cancelled - Patient discharged Performed By: #### L 500.2500, L100.0100 ####[facility] [address] [place], [address] CA,Total Normal 8.5-10.1 [facility] Comment on above: Result Comment: Canc elled via OM: Order cancelled - Patient discharged Performed By: #### L 500.2500, L100.0100 ####[facility] [address] [place], [address] CL Normal 98-107 [facility] Comment on above: Result Comment: Canc elled via OM: Order cancelled - Patient discharged Performed By: #### L 500.2500, L100.0100 ####[facility] [address] [place], [address] CO2 Normal 21.0-32.0 [facility] Comment on above: Result Comment: Canc elled via OM: Order cancelled - Patient discharged Performed By: #### L 500.2500, L100.0100 ####[facility] [address] [place], [address] CREAT,SERUM Normal 0.70-1.30 [facility] Comment on above: Result Comment: Canc elled via OM: Order cancelled - Patient discharged Performed By: #### L 500.2500, L100.0100 ####[facility] [address] [place], [address] EST GFR Normal >60 [facility] Comment on above: Result Comment: Canc elled via OM: Order cancelled - Patient discharged Performed By: #### L 500.2500, L100.0100 ####[facility] [address] [place], [address] EST GFR - AA Normal >60 [facility] Comment on above: Result Comment: Canc elled via OM: Order cancelled - Patient discharged Performed By: #### L 500.2500, L100.0100 ####[facility] [address] [place], [address] GAP Normal 5-15 [facility] Comment on above: Result Comment: Canc elled via OM: Order cancelled - Patient discharged Performed By: #### L 500.2500, L100.0100 ####[facility] [address] [place], [address] GLU Normal 74-106 [facility] Comment on above: Result Comment: Canc elled via OM: Order cancelled - Patient discharged Performed By: #### L 500.2500, L100.0100 ####[facility] [address] [place], [address] Potassium Normal 3.5-5.1 [facility] Comment on above: Result Comment: Canc elled via OM: Order cancelled - Patient discharged Performed By: #### L 500.2500, L100.0100 ####[facility] [address] [place], [address] Basic Metabolic Profile (BMP) Normal 136-145 [facility] Comment on above: Result Comment: Canc elled via OM: Order cancelled - Patient discharged Performed By: #### L 500.2500, L100.0100 ####[facility] [address] [place], [address] CBC W/Diff, Automatedon - Absolute Neut Normal 2.0-7.7 [facility] Comment on above: Result Comment: Canc elled via OM: Order cancelled - Patient discharged Performed By: #### L 500.2500, L100.0100 ####[facility] [address] [place], [address] HCT Normal 40-54 [facility] Comment on above: Result Comment: Canc elled via OM: Order cancelled - Patient discharged Performed By: #### L 500.2500, L100.0100 ####[facility] [address] [place], [address] HGB Normal 13.0-16.5 [facility] Comment on above: Result Comment: Canc elled via OM: Order cancelled - Patient discharged Performed By: #### L 500.2500, L100.0100 ####[facility] [address] [place], [address] MCH Normal 27.0-32.0 [facility] Comment on above: Result Comment: Canc elled via OM: Order cancelled - Patient discharged Performed By: #### L 500.2500, L100.0100 ####[facility] [address] [place], [address] MCHC Normal 32-36 [facility] Comment on above: Result Comment: Canc elled via OM: Order cancelled - Patient discharged Performed By: #### L 500.2500, L100.0100 ####[facility] [address] [place], [address] MCV Normal 80-94 [facility] Comment on above: Result Comment: Canc elled via OM: Order cancelled - Patient discharged Performed By: #### L 500.2500, L100.0100 ####[facility] [address] [place], [address] NEUT% Normal 47-70 [facility] Comment on above: Result Comment: Canc elled via OM: Order cancelled - Patient discharged Performed By: #### L 500.2500, L100.0100 ####[facility] [address] [place], [address] PLT Normal 150-450 [facility] Comment on above: Result Comment: Canc elled via OM: Order cancelled - Patient discharged Performed By: #### L 500.2500, L100.0100 ####[facility] [address] [place], [address] RBC Normal 4.6-6.2 [facility] Comment on above: Result Comment: Canc elled via OM: Order cancelled - Patient discharged Performed By: #### L 500.2500, L100.0100 ####[facility] [address] [place], [address] RDW CV Normal 11.6-14.6 [facility] Comment on above: Result Comment: Canc elled via OM: Order cancelled - Patient discharged Performed By: #### L 500.2500, L100.0100 ####[facility] [address] [place], [address] RDW SD Normal 35.1-43.9 [facility] Comment on above: Result Comment: Canc elled via OM: Order cancelled - Patient discharged Performed By: #### L 500.2500, L100.0100 ####[facility] [address] [place], [address] WBC Normal 4.4-11.0 [facility] Comment on above: Result Comment: Canc elled via OM: Order cancelled - Patient discharged Performed By: #### L 500.2500, L100.0100 ####[facility] [address] [place], [address] Absolute neutrophil countOrd ered By: Catherine Barton on 08-28-2024 Absolute neutrophil count 3.3 X10^3/uL 2.0-7.7 [facility] Basic Metabolic Profile (BMP )on 08-28-2024 BUN/CRE 16.4 RATIO Normal 10-20 [facility] Comment on above: Performed By: #### L 500.2500, L100.0100 ####[facility] [address] [place], [address] CA,Total 8.9 mg/dL Normal 8.5-10.1 [facility] Comment on above: Performed By: #### L 500.2500, L100.0100 ####[facility] [address] [place], [address] Chloride [Moles/Vol] 104 mmol/L Normal 98-107 [facility] Comment on above: Performed By: #### L 500.2500, L100.0100 ####[facility] [address] [place], [address] CO2 [Moles/Vol] 30.0 mmol/L Normal 21.0-32.0 [facility] Comment on above: Performed By: #### L 500.2500, L100.0100 ####[facility] [address] [place], [address] Creatinine [Mass/Vol] 0.73 mg/dL Normal 0.70-1.30 [facility] Comment on above: Result Comment: The validity of the calculated GFR GFRAA in patients over70 years has not been determined. Clinical correlation isessential. Performed By: #### L 500.2500, L100.0100 ####[facility] [address] [place], [address] ECRCL 84.79 ml/min Normal [facility] Comment on above: Performed By: #### L 500.2500, L100.0100 ####[facility] [address] [place], [address] EST GFR - AA 138 mL/min Normal >60 [facility] Comment on above: Result Comment: Afri can Malaysian GFR Calc Performed By: #### L 500.2500, L100.0100 ####[facility] [address] [place], [address] GAP 7 Normal 5-15 [facility] Comment on above: Performed By: #### L 500.2500, L100.0100 ####[facility] [address] [place], [address] GFR/1.73 sq M.predicted among non-blacks MDRD (S/P/Bld) [Vol rate/Area] 114 mL/min/{1.73_m2} Normal >60 [facility] Comment on above: Result Comment: Non- GFR Calc Performed By: #### L 500.2500, L100.0100 ####[facility] [address] [place], [address] Glucose [Mass/Vol] 55 mg/dL Low 74-106 [facility] Comment on above: Performed By: #### L 500.2500, L100.0100 ####[facility] [address] [place], [address] Potassium [Moles/Vol] 3.6 mmol/L Normal 3.5-5.1 [facility] Comment on above: Performed By: #### L 500.2500, L100.0100 ####[facility] [address] [place], [address] Sodium [Moles/Vol] 140 mmol/L Normal 136-145 [facility] Comment on above: Performed By: #### L 500.2500, L100.0100 ####[facility] [address] [place], [address] Urea nitrogen [Mass/Vol] 12 mg/dL Normal 7-18 [facility] Comment on above: Performed By: #### L 500.2500, L100.0100 ####[facility] [address] [place], [address] Basophil percentageOrdered B y: Catherine Barton on 08-28-2024 Basophil percentage 0.2 % 0-1 [facility] Bedside Glucoseon 08-28-2024 FINGERSTICK GLU 241 mg/dL High 74-106 [facility] Comment on above: Result Comment: ORLY GEMENT OF PATIENT CARE PER NURSING PROTOCOL Performed By: #### L 501.080 ####[facility] [address] [place], [address] FINGERSTICK GLU 94 mg/dL Normal 74-106 [facility] Comment on above: Result Comment: ORLY GEMENT OF PATIENT CARE PER NURSING PROTOCOL Performed By: #### L 501.080 ####[facility] [address] [place], [address] Blood urea nitrogen (BUN)/cr eatinine ratioOrdered By: Catherine Barton on 08-28-2024 Blood urea nitrogen (BUN)/creatinine ratio 16.4 RATIO 10-20 [facility] CBC W/Diff, Automatedon 08-08 Absolute Lymph 0.89 X10 3/uL Normal 0.83-4.51 [facility] Comment on above: Performed By: #### L 500.2500, L100.0100 ####[facility] [address] [place], [address] Absolute Neut 3.3 X10 3/uL Normal 2.0-7.7 [facility] Comment on above: Performed By: #### L 500.2500, L100.0100 ####[facility] [address] [place], [address] Basophils/100 WBC (Bld) 0.2 % Normal 0-1 [facility] Comment on above: Performed By: #### L 500.2500, L100.0100 ####[facility] [address] [place], [address] Eosinophils/100 WBC (Bld) 3.4 % Normal 0-5 [facility] Comment on above: Performed By: #### L 500.2500, L100.0100 ####[facility] [address] [place], [address] Erythrocyte distribution width (RBC) [Ratio] 13.9 % Normal 11.6-14.6 [facility] Comment on above: Performed By: #### L 500.2500, L100.0100 ####[facility] [address] [place], [address] Hematocrit (Bld) [Volume fraction] 33.5 % Low 40-54 [facility] Comment on above: Performed By: #### L 500.2500, L100.0100 ####[facility] [address] [place], [address] Hemoglobin (Bld) [Mass/Vol] 11.0 g/dL Low 13.0-16.5 [facility] Comment on above: Performed By: #### L 500.2500, L100.0100 ####[facility] [address] [place], [address] IG% 0.600 Normal 0.0-0.9 [facility] Comment on above: Result Comment: IG% - Immature Granulocytes (promyelocytes, myelocytes andmetamyelocytes) > 1% indicates that a LEFT SHIFT is Present. Performed By: #### L 500.2500, L100.0100 ####[facility] [address] [place], [address] Lymphocytes/100 WBC (Bld) 17.6 % Low 19-41 [facility] Comment on above: Performed By: #### L 500.2500, L100.0100 ####[facility] [address] [place], [address] MCH (RBC) [Entitic mass] 28.7 pg Normal 27.0-32.0 [facility] Comment on above: Performed By: #### L 500.2500, L100.0100 ####[facility] [address] [place], [address] MCHC (RBC) [Mass/Vol] 32.8 g/dL Normal 32-36 [facility] Comment on above: Performed By: #### L 500.2500, L100.0100 ####[facility] [address] [place], [address] MCV (RBC) [Entitic vol] 87.5 fL Normal 80-94 [facility] Comment on above: Performed By: #### L 500.2500, L100.0100 ####[facility] [address] [place], [address] Monocytes/100 WBC (Bld) 14.0 % High 0-10 [facility] Comment on above: Performed By: #### L 500.2500, L100.0100 ####[facility] [address] [place], [address] Neutrophils/100 WBC (Bld) 64.2 % Normal 47-70 [facility] Comment on above: Performed By: #### L 500.2500, L100.0100 ####[facility] [address] [place], [address] Nucleated RBC (Bld) [#/Vol] 0 10*3/uL Normal 0-5 [facility] Comment on above: Performed By: #### L 500.2500, L100.0100 ####[facility] [address] [place], [address] Platelet mean volume (Bld) [Entitic vol] 9.4 fL Normal 6.2-12.0 [facility] Comment on above: Performed By: #### L 500.2500, L100.0100 ####[facility] [address] [place], [address] Platelets (Bld) [#/Vol] 211 10*3/uL Normal 150-450 [facility] Comment on above: Performed By: #### L 500.2500, L100.0100 ####[facility] [address] [place], [address] RBC (Bld) [#/Vol] 3.83 10*6/uL Low 4.6-6.2 [facility] Comment on above: Performed By: #### L 500.2500, L100.0100 ####[facility] [address] [place], [address] RDW SD 44.2 fl High 35.1-43.9 [facility] Comment on above: Performed By: #### L 500.2500, L100.0100 ####[facility] [address] [place], [address] WBC (Bld) [#/Vol] 5.1 10*3/uL Normal 4.4-11.0 [facility] Comment on above: Performed By: #### L 500.2500, L100.0100 ####[facility] [address] [place], [address] Calcium [Mass/Vol]Ordered By : Catherine Barton on 08-28-2024 Serum or plasma calcium measurement (mass/volume) 8.9 mg/dL 8.5-10.1 [facility] Carbon dioxide measurementOr dered By: Catherine Barton on 08-28-2024 Carbon dioxide measurement 30.0 mmol/L 21.0-32.0 [facility] Chloride measurementOrdered By: Catherine Barton on 08-28-2024 Chloride measurement 104 mmol/L 98-107 [facility] Creatinine [Mass/Vol]Ordered By: Catherine Barton on 08-28-2024 Serum or plasma creatinine measurement (mass/volume) 0.73 mg/dL 0.70-1.30 [facility] Discharge Instructionon 08-08 Discharge Instruction Normal [facility] Eosinophil percentageOrdered By: Catherine Barton on 08-28-2024 Eosinophil percentage 3.4 % 0-5 [facility] Erythrocyte distribution wid th (RBC) [Ratio]Ordered By: Catherine Barton on 08-28-2024 Erythrocyte distribution width ratio 13.9 % 11.6-14.6 [facility] Erythrocyte distribution wid th standard deviationOrdered By: Catherine Barton on 08-28-2024 Erythrocyte distribution width standard deviation 44.2 fl High 35.1-43.9 [facility] Estimated glomerular filtrat ion rate (GFR) AmericanOrdered By: Catherine Barton on 08-28-2024 Estimated glomerular filtration rate (GFR) 138 mL/min >60 [facility] Estimation of creatinine pedro luis aranceOrdered By: Catherine Barton on 08-28-2024 Estimation of creatinine clearance 84.79 ml/min [facility] Glomerular filtration rate ( GFR) estimationOrdered By: Catherine Barton on 08-28-2024 Glomerular filtration rate (GFR) estimation 114 mL/min >60 [facility] Glucose measurementOrdered B y: Catherine Barton on 08-28-2024 Glucose measurement 55 mg/dL Low 74-106 [facility] Glucose measurement at bedsi deOrdered By: Catherine Barton on 08-28-2024 Glucose measurement at bedside 241 mg/dL High 74-106 [facility] Hematocrit Auto (Bld) [Volum e fraction]Ordered By: Catherine Barton on 08-28-2024 Automated blood hematocrit (percentage) 33.5 % Low 40-54 [facility] Hemoglobin measurementOrdere d By: Catherine Barton on 08-28-2024 Hemoglobin measurement 11.0 g/dL Low 13.0-16.5 [facility] Immature granulocytes/100 WB C Auto (Bld)Ordered By: Catherine Barton on 08-28-2024 Automated immature granulocyte percentage 0.600 % 0.0-0.9 [facility] Lymphocytes Auto (Unsp spec) [#/Vol]Ordered By: Catherine Barton on 08-28-2024 Absolute lymphocyte count 0.89 X10^3/uL 0.83-4.51 [facility] Lymphocytes/100 WBC Auto (Un sp spec)Ordered By: Catherine Barton on 08-28-2024 Automated lymphocyte count as percentage of total leukocytes 17.6 % Low 19-41 [facility] MCV (RBC) [Entitic vol]Order ed By: Catherine Barton on 08-28-2024 MCV (mean corpuscular volume) determination 87.5 fL 80-94 [facility] Mean corpuscular hemoglobin (MCH) determinationOrdered By: Catherine Barton on 08-28-2024 Mean corpuscular hemoglobin (MCH) determination 28.7 pg 27.0-32.0 [facility] Mean corpuscular hemoglobin concentration (MCHC) determinationOrdered By: Catherine Barton on 08-28-2024 Mean corpuscular hemoglobin concentration (MCHC) determination 32.8 g/dL 32-36 [facility] Mean platelet volume determi nationOrdered By: Catherine Barton on 08-28-2024 Mean platelet volume determination 9.4 fl 6.2-12.0 [facility] Monocyte percentageOrdered B y: Catherine Barton on 08-28-2024 Monocyte percentage 14.0 % High 0-10 [facility] Neutrophil percentageOrdered By: Catherine Barton on 08-28-2024 Neutrophil percentage 64.2 % 47-70 [facility] Nucleated red blood cell per centageOrdered By: Catherine Barton on 08-28-2024 Nucleated red blood cell percentage 0 % 0-5 [facility] Platelet countOrdered By: Raven Barton on 08-28-2024 Platelet count 211 K/mm3 150-450 [facility] Potassium measurementOrdered By: Catherine Barton on 08-28-2024 Potassium measurement 3.6 mmol/L 3.5-5.1 [facility] RBC Auto (Bld) [#/Vol]Ordere d By: Catherine Barton on 08-28-2024 Automated blood erythrocyte count 3.83 M/mm3 Low 4.6-6.2 [facility] Serum anion gap measurementO rdered By: Catherine Barton on 08-28-2024 Serum anion gap measurement 7 5-15 [facility] Sodium levelOrdered By: Catherine Barton on 08-28-2024 Sodium level 140 mmol/L 136-145 [facility] Urea nitrogen [Mass/Vol]Orde red By: Catherine Barton on 08-28-2024 Serum or plasma urea nitrogen measurement (mass/volume) 12 mg/dL 7-18 [facility] White blood cell (WBC) count Ordered By: Catherine Barton on 08-28-2024 White blood cell (WBC) count 5.1 K/mm3 4.4-11.0 [facility] Basic Metabolic Profile (BMP )on 08-27-2024 BUN/CRE 16.1 RATIO Normal 10-20 [facility] Comment on above: Performed By: #### L 500.2500, L100.0100 ####[facility] [address] [place], [address] CA,Total 8.8 mg/dL Normal 8.5-10.1 [facility] Comment on above: Performed By: #### L 500.2500, L100.0100 ####[facility] [address] [place], [address] Chloride [Moles/Vol] 103 mmol/L Normal 98-107 [facility] Comment on above: Performed By: #### L 500.2500, L100.0100 ####[facility] [address] [place], [address] CO2 [Moles/Vol] 28.0 mmol/L Normal 21.0-32.0 [facility] Comment on above: Performed By: #### L 500.2500, L100.0100 ####[facility] [address] [place], [address] Creatinine [Mass/Vol] 0.68 mg/dL Low 0.70-1.30 [facility] Comment on above: Result Comment: The validity of the calculated GFR GFRAA in patients over70 years has not been determined. Clinical correlation isessential. Performed By: #### L 500.2500, L100.0100 ####[facility] [address] [place], [address] ECRCL 83.51 ml/min Normal [facility] Comment on above: Performed By: #### L 500.2500, L100.0100 ####[facility] [address] [place], [address] EST GFR - AA 149 mL/min Normal >60 [facility] Comment on above: Result Comment: Afri can Malaysian GFR Calc Performed By: #### L 500.2500, L100.0100 ####[facility] [address] [place], [address] GAP 7 Normal 5-15 [facility] Comment on above: Performed By: #### L 500.2500, L100.0100 ####[facility] [address] [place], [address] GFR/1.73 sq M.predicted among non-blacks MDRD (S/P/Bld) [Vol rate/Area] 123 mL/min/{1.73_m2} Normal >60 [facility] Comment on above: Result Comment: Non- GFR Calc Performed By: #### L 500.2500, L100.0100 ####[facility] [address] [place], [address] Glucose [Mass/Vol] 108 mg/dL High 74-106 [facility] Comment on above: Result Comment: Fast ing Glucose result from 100 to 125 mg/dLsuggests IMPAIRED HOMEOSTASIS per A.D.A. criteria. Performed By: #### L 500.2500, L100.0100 ####[facility] [address] [place], [address] Potassium [Moles/Vol] 3.4 mmol/L Low 3.5-5.1 [facility] Comment on above: Performed By: #### L 500.2500, L100.0100 ####[facility] [address] [place], [address] Sodium [Moles/Vol] 138 mmol/L Normal 136-145 [facility] Comment on above: Performed By: #### L 500.2500, L100.0100 ####[facility] [address] [place], [address] Urea nitrogen [Mass/Vol] 11 mg/dL Normal 7-18 [facility] Comment on above: Performed By: #### L 500.2500, L100.0100 ####[facility] [address] [place], [address] Bedside Glucoseon 08-27-2024 FINGERSTICK GLU 242 mg/dL High 74-106 [facility] Comment on above: Result Comment: ORLY GEMENT OF PATIENT CARE PER NURSING PROTOCOL Performed By: #### L 501.080 ####[facility] [address] [place], [address] FINGERSTICK GLU 183 mg/dL High 74-106 [facility] Comment on above: Result Comment: ORLY GEMENT OF PATIENT CARE PER NURSING PROTOCOL Performed By: #### L 501.080 ####[facility] [address] [place], [address] FINGERSTICK GLU 116 mg/dL High 74-106 [facility] Comment on above: Result Comment: ORLY GEMENT OF PATIENT CARE PER NURSING PROTOCOL Performed By: #### L 501.080 ####[facility] [address] [place], [address] FINGERSTICK GLU 101 mg/dL Normal 74-106 [facility] Comment on above: Result Comment: ORLY DELGADILLO OF PATIENT CARE PER NURSING PROTOCOL Performed By: #### L 501.080 ####[facility] [address] [place], [address] CBC W/Diff, Automatedon - Absolute Lymph 0.83 X10 3/uL Normal 0.83-4.51 [facility] Comment on above: Performed By: #### L 500.2500, L100.0100 ####[facility] [address] [place], [address] Absolute Neut 3.3 X10 3/uL Normal 2.0-7.7 [facility] Comment on above: Performed By: #### L 500.2500, L100.0100 ####[facility] [address] [place], [address] Basophils/100 WBC (Bld) 0.4 % Normal 0-1 [facility] Comment on above: Performed By: #### L 500.2500, L100.0100 ####[facility] [address] [place], [address] Eosinophils/100 WBC (Bld) 3.2 % Normal 0-5 [facility] Comment on above: Performed By: #### L 500.2500, L100.0100 ####[facility] [address] [place], [address] Erythrocyte distribution width (RBC) [Ratio] 14.0 % Normal 11.6-14.6 [facility] Comment on above: Performed By: #### L 500.2500, L100.0100 ####[facility] [address] [place], [address] Hematocrit (Bld) [Volume fraction] 30.8 % Low 40-54 [facility] Comment on above: Performed By: #### L 500.2500, L100.0100 ####[facility] [address] [place], [address] Hemoglobin (Bld) [Mass/Vol] 10.4 g/dL Low 13.0-16.5 [facility] Comment on above: Performed By: #### L 500.2500, L100.0100 ####[facility] [address] [place], [address] IG% 0.400 Normal 0.0-0.9 [facility] Comment on above: Result Comment: IG% - Immature Granulocytes (promyelocytes, myelocytes andmetamyelocytes) > 1% indicates that a LEFT SHIFT is Present. Performed By: #### L 500.2500, L100.0100 ####[facility] [address] [place], [address] Lymphocytes/100 WBC (Bld) 16.6 % Low 19-41 [facility] Comment on above: Performed By: #### L 500.2500, L100.0100 ####[facility] [address] [place], [address] MCH (RBC) [Entitic mass] 29.5 pg Normal 27.0-32.0 [facility] Comment on above: Performed By: #### L 500.2500, L100.0100 ####[facility] [address] [place], [address] MCHC (RBC) [Mass/Vol] 33.8 g/dL Normal 32-36 [facility] Comment on above: Performed By: #### L 500.2500, L100.0100 ####[facility] [address] [place], [address] MCV (RBC) [Entitic vol] 87.3 fL Normal 80-94 [facility] Comment on above: Performed By: #### L 500.2500, L100.0100 ####[facility] [address] [place], [address] Monocytes/100 WBC (Bld) 12.8 % High 0-10 [facility] Comment on above: Performed By: #### L 500.2500, L100.0100 ####[facility] [address] [place], [address] Neutrophils/100 WBC (Bld) 66.6 % Normal 47-70 [facility] Comment on above: Performed By: #### L 500.2500, L100.0100 ####[facility] [address] [place], [address] Nucleated RBC (Bld) [#/Vol] 0 10*3/uL Normal 0-5 [facility] Comment on above: Performed By: #### L 500.2500, L100.0100 ####[facility] [address] [place], [address] Platelet mean volume (Bld) [Entitic vol] 9.6 fL Normal 6.2-12.0 [facility] Comment on above: Performed By: #### L 500.2500, L100.0100 ####[facility] [address] [place], [address] Platelets (Bld) [#/Vol] 196 10*3/uL Normal 150-450 [facility] Comment on above: Performed By: #### L 500.2500, L100.0100 ####[facility] [address] [place], [address] RBC (Bld) [#/Vol] 3.53 10*6/uL Low 4.6-6.2 [facility] Comment on above: Performed By: #### L 500.2500, L100.0100 ####[facility] [address] [place], [address] RDW SD 44.5 fl High 35.1-43.9 [facility] Comment on above: Performed By: #### L 500.2500, L100.0100 ####[facility] [address] [place], [address] WBC (Bld) [#/Vol] 5.0 10*3/uL Normal 4.4-11.0 [facility] Comment on above: Performed By: #### L 500.2500, L100.0100 ####[facility] [address] [place], [address] Urine Cultureon 08-27-2024 URC Normal [facility] Comment on above: Performed By: #### L 400.0001, M100.678, M100.2200 ####[facility] [address] [place], [address] ALP [Catalytic activity/Vol] Ordered By: Ling Ford on 08-26-2024 Serum or plasma alkaline phosphatase measurement 87 U/L 45-117 [facility] ALT [Catalytic activity/Vol] Ordered By: Ling Ford on 08-26-2024 Serum or plasma alanine aminotransferase (ALT) measurement 19 U/L 16-61 [facility] Albumin [Mass/Vol]Ordered By : Ling Ford on 08-26-2024 Serum or plasma albumin measurement (mass/volume) 2.8 g/dL Low 3.2-5.0 [facility] Albumin to globulin ratioOrd ered By: Ling Ford on 08-26-2024 Albumin to globulin ratio 0.8 RATIO Low 0.9-2.4 [facility] Bedside Glucoseon 08-26-2024 FINGERSTICK GLU 168 mg/dL High 74-106 [facility] Comment on above: Result Comment: ORLY DELGADILLO OF PATIENT CARE PER NURSING PROTOCOL Performed By: #### L 501.080 ####[facility] [address] [place], [address] FINGERSTICK GLU 191 mg/dL High 74-106 [facility] Comment on above: Result Comment: ORLY GEMENT OF PATIENT CARE PER NURSING PROTOCOL Performed By: #### L 501.080 ####[facility] [address] [place], [address] FINGERSTICK GLU 132 mg/dL High 74-106 [facility] Comment on above: Result Comment: ORLY GEMENT OF PATIENT CARE PER NURSING PROTOCOL Performed By: #### L 501.080 ####[facility] [address] [place], [address] FINGERSTICK GLU 102 mg/dL Normal 74-106 [facility] Comment on above: Result Comment: ORLY GEMENT OF PATIENT CARE PER NURSING PROTOCOL Performed By: #### L 501.080 ####[facility] [address] [place], [address] FINGERSTICK GLU 57 mg/dL Low 74-106 [facility] Comment on above: Result Comment: ORLY GEMENT OF PATIENT CARE PER NURSING PROTOCOL Performed By: #### L 501.080 ####[facility] [address] [place], [address] FINGERSTICK GLU 53 mg/dL Low 74-106 [facility] Comment on above: Result Comment: ORLY GEMENT OF PATIENT CARE PER NURSING PROTOCOL Performed By: #### L 501.080 ####[facility] [address] [place], [address] FINGERSTICK GLU 80 mg/dL Normal 74-106 [facility] Comment on above: Result Comment: ORLY GEMENT OF PATIENT CARE PER NURSING PROTOCOL Performed By: #### L 501.080 ####[facility] [address] [place], [address] FINGERSTICK GLU 61 mg/dL Low 74-106 [facility] Comment on above: Result Comment: ORLY GEMENT OF PATIENT CARE PER NURSING PROTOCOL Performed By: #### L 501.080 ####[facility] [address] [place], [address] Bilirubin, totalOrdered By: Ling Ford on 08-26-2024 Bilirubin, total 0.30 mg/dL 0.20-1.00 [facility] CBC W/Diff, Automatedon 08-08 Absolute Lymph 0.77 X10 3/uL Low 0.83-4.51 [facility] Comment on above: Performed By: #### L 500.4050, L501.5200, L501.2300, L100.0100 ####[facility] [address] [place], [address] Absolute Neut 4.3 X10 3/uL Normal 2.0-7.7 [facility] Comment on above: Performed By: #### L 500.4050, L501.5200, L501.2300, L100.0100 ####[facility] [address] [place], [address] Basophils/100 WBC (Bld) 0.2 % Normal 0-1 [facility] Comment on above: Performed By: #### L 500.4050, L501.5200, L501.2300, L100.0100 ####[facility] [address] [place], [address] Eosinophils/100 WBC (Bld) 1.5 % Normal 0-5 [facility] Comment on above: Performed By: #### L 500.4050, L501.5200, L501.2300, L100.0100 ####[facility] [address] [place], [address] Erythrocyte distribution width (RBC) [Ratio] 14.1 % Normal 11.6-14.6 [facility] Comment on above: Performed By: #### L 500.4050, L501.5200, L501.2300, L100.0100 ####[facility] [address] [place], [address] Hematocrit (Bld) [Volume fraction] 30.6 % Low 40-54 [facility] Comment on above: Performed By: #### L 500.4050, L501.5200, L501.2300, L100.0100 ####[facility] [address] [place], [address] Hemoglobin (Bld) [Mass/Vol] 10.1 g/dL Low 13.0-16.5 [facility] Comment on above: Performed By: #### L 500.4050, L501.5200, L501.2300, L100.0100 ####[facility] [address] [place], [address] IG% 0.200 Normal 0.0-0.9 [facility] Comment on above: Result Comment: IG% - Immature Granulocytes (promyelocytes, myelocytes andmetamyelocytes) > 1% indicates that a LEFT SHIFT is Present. Performed By: #### L 500.4050, L501.5200, L501.2300, L100.0100 ####[facility] [address] [place], [address] Lymphocytes/100 WBC (Bld) 12.9 % Low 19-41 [facility] Comment on above: Performed By: #### L 500.4050, L501.5200, L501.2300, L100.0100 ####[facility] [address] [place], [address] MCH (RBC) [Entitic mass] 29.1 pg Normal 27.0-32.0 [facility] Comment on above: Performed By: #### L 500.4050, L501.5200, L501.2300, L100.0100 ####[facility] [address] [place], [address] MCHC (RBC) [Mass/Vol] 33.0 g/dL Normal 32-36 [facility] Comment on above: Performed By: #### L 500.4050, L501.5200, L501.2300, L100.0100 ####[facility] [address] [place], [address] MCV (RBC) [Entitic vol] 88.2 fL Normal 80-94 [facility] Comment on above: Performed By: #### L 500.4050, L501.5200, L501.2300, L100.0100 ####[facility] [address] [place], [address] Monocytes/100 WBC (Bld) 13.2 % High 0-10 [facility] Comment on above: Performed By: #### L 500.4050, L501.5200, L501.2300, L100.0100 ####[facility] [address] [place], [address] Neutrophils/100 WBC (Bld) 72.0 % High 47-70 [facility] Comment on above: Performed By: #### L 500.4050, L501.5200, L501.2300, L100.0100 ####[facility] [address] [place], [address] Nucleated RBC (Bld) [#/Vol] 0 10*3/uL Normal 0-5 [facility] Comment on above: Performed By: #### L 500.4050, L501.5200, L501.2300, L100.0100 ####[facility] [address] [place], [address] Platelet mean volume (Bld) [Entitic vol] 9.6 fL Normal 6.2-12.0 [facility] Comment on above: Performed By: #### L 500.4050, L501.5200, L501.2300, L100.0100 ####[facility] [address] [place], [address] Platelets (Bld) [#/Vol] 227 10*3/uL Normal 150-450 [facility] Comment on above: Performed By: #### L 500.4050, L501.5200, L501.2300, L100.0100 ####[facility] [address] [place], [address] RBC (Bld) [#/Vol] 3.47 10*6/uL Low 4.6-6.2 [facility] Comment on above: Performed By: #### L 500.4050, L501.5200, L501.2300, L100.0100 ####[facility] [address] [place], [address] RDW SD 44.6 fl High 35.1-43.9 [facility] Comment on above: Performed By: #### L 500.4050, L501.5200, L501.2300, L100.0100 ####[facility] [address] [place], [address] WBC (Bld) [#/Vol] 6.0 10*3/uL Normal 4.4-11.0 [facility] Comment on above: Performed By: #### L 500.4050, L501.5200, L501.2300, L100.0100 ####[facility] [address] [place], [address] Comprehensive Metabolic [facility] 08-26-2024 Albumin [Mass/Vol] 2.8 g/dL Low 3.2-5.0 [facility] Comment on above: Performed By: #### L 500.4050, L501.5200, L501.2300, L100.0100 ####[facility] [address] [place], [address] Albumin/Globulin [Mass ratio] 0.8 {ratio} Low 0.9-2.4 [facility] Comment on above: Performed By: #### L 500.4050, L501.5200, L501.2300, L100.0100 ####[facility] [address] [place], [address] ALK P 87 U/L Normal 45-117 [facility] Comment on above: Performed By: #### L 500.4050, L501.5200, L501.2300, L100.0100 ####[facility] [address] [place], [address] ALT [Catalytic activity/Vol] 19 U/L Normal 16-61 [facility] Comment on above: Performed By: #### L 500.4050, L501.5200, L501.2300, L100.0100 ####[facility] [address] [place], [address] AST [Catalytic activity/Vol] 17 U/L Normal 15-37 [facility] Comment on above: Performed By: #### L 500.4050, L501.5200, L501.2300, L100.0100 ####[facility] [address] [place], [address] Bilirubin [Mass/Vol] 0.30 mg/dL Normal 0.20-1.00 [facility] Comment on above: Result Comment: For patients on eltrombopag therapy, use of Dimension [place] TBIL is not recommended. Performed By: #### L 500.4050, L501.5200, L501.2300, L100.0100 ####[facility] [address] [place], [address] BUN/CRE 17.2 RATIO Normal 10-20 [facility] Comment on above: Performed By: #### L 500.4050, L501.5200, L501.2300, L100.0100 ####[facility] [address] [place], [address] CA,Total 8.5 mg/dL Normal 8.5-10.1 [facility] Comment on above: Performed By: #### L 500.4050, L501.5200, L501.2300, L100.0100 ####[facility] [address] [place], [address] Chloride [Moles/Vol] 105 mmol/L Normal 98-107 [facility] Comment on above: Performed By: #### L 500.4050, L501.5200, L501.2300, L100.0100 ####[facility] [address] [place], [address] CO2 [Moles/Vol] 26.0 mmol/L Normal 21.0-32.0 [facility] Comment on above: Performed By: #### L 500.4050, L501.5200, L501.2300, L100.0100 ####[facility] [address] [place], [address] Creatinine [Mass/Vol] 0.64 mg/dL Low 0.70-1.30 [facility] Comment on above: Result Comment: The validity of the calculated GFR GFRAA in patients over70 years has not been determined. Clinical correlation isessential. Performed By: #### L 500.4050, L501.5200, L501.2300, L100.0100 ####[facility] [address] [place], [address] ECRCL 83.51 ml/min Normal [facility] Comment on above: Performed By: #### L 500.4050, L501.5200, L501.2300, L100.0100 ####[facility] [address] [place], [address] EST GFR - AA 161 mL/min Normal >60 [facility] Comment on above: Result Comment: Afri can [place] GFR Calc Performed By: #### L 500.4050, L501.5200, L501.2300, L100.0100 ####[facility] [address] [place], [address] GAP 6 Normal 5-15 [facility] Comment on above: Performed By: #### L 500.4050, L501.5200, L501.2300, L100.0100 ####[facility] [address] [place], [address] GFR/1.73 sq M.predicted among non-blacks MDRD (S/P/Bld) [Vol rate/Area] 133 mL/min/{1.73_m2} Normal >60 [facility] Comment on above: Result Comment: Non- GFR Calc Performed By: #### L 500.4050, L501.5200, L501.2300, L100.0100 ####[facility] [address] [place], [address] Globulin (S) [Mass/Vol] 3.7 g/dL Normal 2.2-4.2 [facility] Comment on above: Performed By: #### L 500.4050, L501.5200, L501.2300, L100.0100 ####[facility] [address] [place], [address] Glucose [Mass/Vol] 73 mg/dL Low 74-106 [facility] Comment on above: Performed By: #### L 500.4050, L501.5200, L501.2300, L100.0100 ####[facility] [address] [place], [address] Potassium [Moles/Vol] 3.4 mmol/L Low 3.5-5.1 [facility] Comment on above: Performed By: #### L 500.4050, L501.5200, L501.2300, L100.0100 ####[facility] [address] [place], [address] Sodium [Moles/Vol] 137 mmol/L Normal 136-145 [facility] Comment on above: Performed By: #### L 500.4050, L501.5200, L501.2300, L100.0100 ####[facility] [address] [place], [address] T PROT 6.5 g/dL Normal 6.4-8.2 [facility] Comment on above: Performed By: #### L 500.4050, L501.5200, L501.2300, L100.0100 ####[facility] [address] [place], [address] Urea nitrogen [Mass/Vol] 11 mg/dL Normal 7-18 [facility] Comment on above: Performed By: #### L 500.4050, L501.5200, L501.2300, L100.0100 ####[facility] [address] [place], [address] Consultation - Infectious Dx on 08-26-2024 Consultation - Infectious Dx Normal [facility] Consultation - Urologyon Consultation - Urology Normal [facility] Magnesiumon 08-26-2024 Magnesium [Mass/Vol] 1.3 mg/dL Low 1.6-2.6 [facility] Comment on above: Performed By: #### L 500.4050, L501.5200, L501.2300, L100.0100 ####[facility] [address] [place], [address] Magnesium measurementOrdered By: Ling Ford on 08-26-2024 Magnesium measurement 1.3 mg/dL Low 1.6-2.6 [facility] No Panel InformationOrdered By: Ling Ford on 08-26-2024 17 U/L 15-37 [facility] Phosphoruson 08-26-2024 Phosphate [Mass/Vol] 3.5 mg/dL Normal 2.5-4.9 [facility] Comment on above: Performed By: #### L 500.4050, L501.5200, L501.2300, L100.0100 ####[facility] [address] [place], [address] Phosphorus measurementOrdere d By: Ling Ford on 08-26-2024 Phosphorus measurement 3.5 mg/dL 2.5-4.9 [facility] Serum globulin measurementOr dered By: Ling Ford on 08-26-2024 Serum globulin measurement 3.7 g/dL 2.2-4.2 [facility] Total proteinOrdered By: Calista Ford on 08-26-2024 Total protein 6.5 g/dL 6.4-8.2 [facility] Abdomen/Pelvis without Conto n 08-25-2024 Abdomen/Pelvis without Cont Normal [facility] Blood cultureOrdered By: Niko Britton on 08-25-2024 Blood culture No growth in 5 days. [facility] Blood culture No growth in 5 days. [facility] Brain/Head without Contrasto n 08-25-2024 Brain/Head without Contrast Normal [facility] CBC W/Diff, Automatedon - Absolute Lymph 0.74 X10 3/uL Low 0.83-4.51 [facility] Comment on above: Performed By: #### M 200.1000, L503.6005, L100.0100, L500.4050, L300.4310, L300.3900 ####[facility] [address] [place], [address] Absolute Neut 5.1 X10 3/uL Normal 2.0-7.7 [facility] Comment on above: Performed By: #### M 200.1000, L503.6005, L100.0100, L500.4050, L300.4310, L300.3900 ####[facility] [address] [place], [address] Basophils/100 WBC (Bld) 0.5 % Normal 0-1 [facility] Comment on above: Performed By: #### M 200.1000, L503.6005, L100.0100, L500.4050, L300.4310, L300.3900 ####[facility] [address] [place], [address] Eosinophils/100 WBC (Bld) 1.4 % Normal 0-5 [facility] Comment on above: Performed By: #### M 200.1000, L503.6005, L100.0100, L500.4050, L300.4310, L300.3900 ####[facility] [address] [place], [address] Erythrocyte distribution width (RBC) [Ratio] 14.0 % Normal 11.6-14.6 [facility] Comment on above: Performed By: #### M 200.1000, L503.6005, L100.0100, L500.4050, L300.4310, L300.3900 ####[facility] [address] [place], [address] Hematocrit (Bld) [Volume fraction] 37.6 % Low 40-54 [facility] Comment on above: Performed By: #### M 200.1000, L503.6005, L100.0100, L500.4050, L300.4310, L300.3900 ####[facility] [address] [place], [address] Hemoglobin (Bld) [Mass/Vol] 12.6 g/dL Low 13.0-16.5 [facility] Comment on above: Performed By: #### M 200.1000, L503.6005, L100.0100, L500.4050, L300.4310, L300.3900 ####[facility] [address] [place], [address] IG% 0.200 Normal 0.0-0.9 [facility] Comment on above: Result Comment: IG% - Immature Granulocytes (promyelocytes, myelocytes andmetamyelocytes) > 1% indicates that a LEFT SHIFT is Present. Performed By: #### M 200.1000, L503.6005, L100.0100, L500.4050, L300.4310, L300.3900 ####[facility] [address] [place], [address] Lymphocytes/100 WBC (Bld) 11.3 % Low 19-41 [facility] Comment on above: Performed By: #### M 200.1000, L503.6005, L100.0100, L500.4050, L300.4310, L300.3900 ####[facility] [address] [place], [address] MCH (RBC) [Entitic mass] 29.3 pg Normal 27.0-32.0 [facility] Comment on above: Performed By: #### M 200.1000, L503.6005, L100.0100, L500.4050, L300.4310, L300.3900 ####[facility] [address] [place], [address] MCHC (RBC) [Mass/Vol] 33.5 g/dL Normal 32-36 [facility] Comment on above: Performed By: #### M 200.1000, L503.6005, L100.0100, L500.4050, L300.4310, L300.3900 ####[facility] [address] [place], [address] MCV (RBC) [Entitic vol] 87.4 fL Normal 80-94 [facility] Comment on above: Performed By: #### M 200.1000, L503.6005, L100.0100, L500.4050, L300.4310, L300.3900 ####[facility] [address] [place], [address] Monocytes/100 WBC (Bld) 9.0 % Normal 0-10 [facility] Comment on above: Performed By: #### M 200.1000, L503.6005, L100.0100, L500.4050, L300.4310, L300.3900 ####[facility] [address] [place], [address] Neutrophils/100 WBC (Bld) 77.6 % High 47-70 [facility] Comment on above: Performed By: #### M 200.1000, L503.6005, L100.0100, L500.4050, L300.4310, L300.3900 ####[facility] [address] [place], [address] Nucleated RBC (Bld) [#/Vol] 0 10*3/uL Normal 0-5 [facility] Comment on above: Performed By: #### M 200.1000, L503.6005, L100.0100, L500.4050, L300.4310, L300.3900 ####[facility] [address] [place], [address] Platelet mean volume (Bld) [Entitic vol] 9.3 fL Normal 6.2-12.0 [facility] Comment on above: Performed By: #### M 200.1000, L503.6005, L100.0100, L500.4050, L300.4310, L300.3900 ####[facility] [address] [place], [address] Platelets (Bld) [#/Vol] 252 10*3/uL Normal 150-450 [facility] Comment on above: Performed By: #### M 200.1000, L503.6005, L100.0100, L500.4050, L300.4310, L300.3900 ####[facility] [address] [place], [address] RBC (Bld) [#/Vol] 4.30 10*6/uL Low 4.6-6.2 [facility] Comment on above: Performed By: #### M 200.1000, L503.6005, L100.0100, L500.4050, L300.4310, L300.3900 ####[facility] [address] [place], [address] RDW SD 44.4 fl High 35.1-43.9 [facility] Comment on above: Performed By: #### M 200.1000, L503.6005, L100.0100, L500.4050, L300.4310, L300.3900 ####[facility] [address] [place], [address] WBC (Bld) [#/Vol] 6.5 10*3/uL Normal 4.4-11.0 [facility] Comment on above: Performed By: #### M 200.1000, L503.6005, L100.0100, L500.4050, L300.4310, L300.3900 ####[facility] [address] [place], [address] Chest 1 View (Portable)on Chest 1 View (Portable) Normal [facility] Clarity (U)Ordered By: Fabricio Britton on 08-25-2024 Urine clarity Sl. Cloudy Clear [facility] Color (U)Ordered By: Kenzie Britton on 08-25-2024 Urine color determination Yellow Yellow [facility] Comprehensive Metabolic Prof ilon 08-25-2024 Albumin [Mass/Vol] 3.3 g/dL Normal 3.2-5.0 [facility] Comment on above: Performed By: #### M 200.1000, L503.6005, L100.0100, L500.4050, L300.4310, L300.3900 ####[facility] [address] [place], [address] Albumin/Globulin [Mass ratio] 0.7 {ratio} Low 0.9-2.4 [facility] Comment on above: Performed By: #### M 200.1000, L503.6005, L100.0100, L500.4050, L300.4310, L300.3900 ####[facility] [address] [place], [address] ALK P 117 U/L Normal 45-117 [facility] Comment on above: Performed By: #### M 200.1000, L503.6005, L100.0100, L500.4050, L300.4310, L300.3900 ####[facility] [address] [place], [address] ALT [Catalytic activity/Vol] 23 U/L Normal 16-61 [facility] Comment on above: Performed By: #### M 200.1000, L503.6005, L100.0100, L500.4050, L300.4310, L300.3900 ####[facility] [address] [place], [address] AST [Catalytic activity/Vol] 23 U/L Normal 15-37 [facility] Comment on above: Performed By: #### M 200.1000, L503.6005, L100.0100, L500.4050, L300.4310, L300.3900 ####[facility] [address] [place], [address] Bilirubin [Mass/Vol] 0.40 mg/dL Normal 0.20-1.00 [facility] Comment on above: Result Comment: For patients on eltrombopag therapy, use of Dimension [place] TBIL is not recommended. Performed By: #### M 200.1000, L503.6005, L100.0100, L500.4050, L300.4310, L300.3900 ####[facility] [address] [place], [address] BUN/CRE 17.0 RATIO Normal 10-20 [facility] Comment on above: Performed By: #### M 200.1000, L503.6005, L100.0100, L500.4050, L300.4310, L300.3900 ####[facility] [address] [place], [address] CA,Total 9.3 mg/dL Normal 8.5-10.1 [facility] Comment on above: Performed By: #### M 200.1000, L503.6005, L100.0100, L500.4050, L300.4310, L300.3900 ####[facility] [address] [place], [address] Chloride [Moles/Vol] 103 mmol/L Normal 98-107 [facility] Comment on above: Performed By: #### M 200.1000, L503.6005, L100.0100, L500.4050, L300.4310, L300.3900 ####[facility] [address] [place], [address] CO2 [Moles/Vol] 29.0 mmol/L Normal 21.0-32.0 [facility] Comment on above: Performed By: #### M 200.1000, L503.6005, L100.0100, L500.4050, L300.4310, L300.3900 ####[facility] [address] [place], [address] Creatinine [Mass/Vol] 1.00 mg/dL Normal 0.70-1.30 [facility] Comment on above: Result Comment: The validity of the calculated GFR GFRAA in patients over70 years has not been determined. Clinical correlation isessential. Performed By: #### M 200.1000, L503.6005, L100.0100, L500.4050, L300.4310, L300.3900 ####[facility] [address] [place], [address] EST GFR - AA 96 mL/min Normal >60 [facility] Comment on above: Result Comment: Afri can [place] GFR Calc Performed By: #### M 200.1000, L503.6005, L100.0100, L500.4050, L300.4310, L300.3900 ####[facility] [address] [place], [address] GAP 7 Normal 5-15 [facility] Comment on above: Performed By: #### M 200.1000, L503.6005, L100.0100, L500.4050, L300.4310, L300.3900 ####[facility] [address] [place], [address] GFR/1.73 sq M.predicted among non-blacks MDRD (S/P/Bld) [Vol rate/Area] 79 mL/min/{1.73_m2} Normal >60 [facility] Comment on above: Result Comment: Non- GFR Calc Performed By: #### M 200.1000, L503.6005, L100.0100, L500.4050, L300.4310, L300.3900 ####[facility] [address] [place], [address] Globulin (S) [Mass/Vol] 4.7 g/dL High 2.2-4.2 [facility] Comment on above: Performed By: #### M 200.1000, L503.6005, L100.0100, L500.4050, L300.4310, L300.3900 ####[facility] [address] [place], [address] Glucose [Mass/Vol] 116 mg/dL High 74-106 [facility] Comment on above: Result Comment: Fast ing Glucose result from 100 to 125 mg/dLsuggests IMPAIRED HOMEOSTASIS per A.D.A. criteria. Performed By: #### M 200.1000, L503.6005, L100.0100, L500.4050, L300.4310, L300.3900 ####[facility] [address] [place], [address] Potassium [Moles/Vol] 4.2 mmol/L Normal 3.5-5.1 [facility] Comment on above: Performed By: #### M 200.1000, L503.6005, L100.0100, L500.4050, L300.4310, L300.3900 ####[facility] [address] [place], [address] Sodium [Moles/Vol] 139 mmol/L Normal 136-145 [facility] Comment on above: Performed By: #### M 200.1000, L503.6005, L100.0100, L500.4050, L300.4310, L300.3900 ####[facility] [address] [place], [address] T PROT 8.0 g/dL Normal 6.4-8.2 [facility] Comment on above: Performed By: #### M 200.1000, L503.6005, L100.0100, L500.4050, L300.4310, L300.3900 ####[facility] [address] [place], [address] Urea nitrogen [Mass/Vol] 17 mg/dL Normal 7-18 [facility] Comment on above: Performed By: #### M 200.1000, L503.6005, L100.0100, L500.4050, L300.4310, L300.3900 ####[facility] [address] [place], [address] Emergency Department Summary on 08-25-2024 Emergency Department Summary Normal [facility] Glucose Ql (U)Ordered By: Morris Britton on 08-25-2024 Urine glucose detection Normal mg/dl Normal [facility] H AND P Exam - Hospitaliston 08-25-2024 H&P Exam - Hospitalist Normal [facility] Hyaline casts LM.LPF (Urine sed) [#/Area]Ordered By: Kenzie Britton on 08-25-2024 Urine sediment hyaline cast count by microscopy (number/low power field) 0-5 SEEN /lpf 0-5 [facility] International normalized rat io (INR) calculationOrdered By: Kenzie Britton on 08-25-2024 International normalized ratio (INR) calculation 1.0 [facility] Lactic Acidon 08-25-2024 Lactate [Moles/Vol] 2.3 mmol/L Invalid Interpretation Code 0.4-1.9 [facility] Comment on above: Result Comment: Crit ical Result(s) Called at: 22:04:26 08/25/2024 by: PRASANNA WALLER. Results read back by same. Performed By: #### L 503.6005 ####[facility] [address] [place], [place], [address] Lactate [Moles/Vol] 2.5 mmol/L Invalid Interpretation Code 0.4-1.9 [facility] Comment on above: Order Comment: Y Result Comment: Crit ical Result(s) Called at: 20:15:49 08/25/2024 by: PRASANNA SHEPPARD. Results read back by same. Performed By: #### L 503.6005 ####[facility] [address] [place], [place], [address] Lactate [Moles/Vol] 3.1 mmol/L Invalid Interpretation Code 0.4-1.9 [facility] Comment on above: Order Comment: Y Result Comment: Crit ical Result(s) Called at: 17:32:55 08/25/2024 by: PRASANNA JIMENEZ. Results read back by same. Performed By: #### M 200.1000, L503.6005, L100.0100, L500.4050, L300.4310, L300.3900 ####[facility] [address] [place], [place], [address] Lactic acid measurementOrder ed By: Kenzie Britton on 08-25-2024 Lactic acid measurement 2.3 mmol/L High 0.4-2.0 [facility] Leukocyte esterase Test stri p Ql (U)Ordered By: Kenzie Britton on 08-25-2024 Urine leukocyte esterase detection by dipstick 500 /ul High Negative [facility] M100.678on 08-25-2024 M100.678 Pending SARS-CoV-2 (COVID 19) Negative INFLUENZA A Negative INFLUENZA B Negative RSV PCR Negative Normal [facility] Comment on above: Performed By: #### L 400.0001, M100.678, M100.2200 ####[facility] [address] [place], [place], [address] Microscopic analysis of urin e for red blood cells (RBC)Ordered By: Kenzie Britton on 08-25-2024 Microscopic analysis of urine for red blood cells (RBC) 5-10 SEEN /hpf 0-5 [facility] Partial Thromboplast Timeon 08-25-2024 aPTT Coag (Bld) [Time] 47.7 s High 24.1-36.2 [facility] Comment on above: Performed By: #### M 200.1000, L503.6005, L100.0100, L500.4050, L300.4310, L300.3900 ####[facility] [address] [place], [place], [address] Protein Test strip Ql (U)Ord ered By: Kenzie Britton on 08-25-2024 Urine protein assay by test strip, semi-quantitative 500 mg/dl High Negative [facility] Prothrombin Time w/INRon INR Coag (PPP) [Relative time] 1.0 {INR} Normal [facility] Comment on above: Performed By: #### M 200.1000, L503.6005, L100.0100, L500.4050, L300.4310, L300.3900 ####[facility] [address] [place], [address] PT Coag (PPP) [Time] 13.3 s Normal 11.7-14.9 [facility] Comment on above: Performed By: #### M 200.1000, L503.6005, L100.0100, L500.4050, L300.4310, L300.3900 ####[facility] [address] [place], [address] Prothrombin timeOrdered By: Kenzie Britton on 08-25-2024 Prothrombin time 13.3 SECONDS 11.7-14.9 [facility] Specific gravity (U) [Rel de nsity]Ordered By: Kenzie Britton on 08-25-2024 Urine specific gravity measurement 1.025 1.002-1.030 [facility] Squamous epithelial cells de tection in urine sediment by light microscopyOrdered By: Kenzie Britton on 08-25-2024 Squamous epithelial cells detection in urine sediment by light microscopy 0 SEEN /hpf [facility] Urinalysis, Completeon 08-25 CAST,HYALINE 0-5 SEEN Normal 0-5 [facility] Comment on above: Order Comment: JASWINDER TER SPECIMEN Performed By: #### L 400.0001, M100.678, M100.2200 ####[facility] [address] [place], [address] RBC 5-10 SEEN Normal 0-5 [facility] Comment on above: Order Comment: JASWINDER TER SPECIMEN Performed By: #### L 400.0001, M100.678, M100.2200 ####[facility] [address] [place], [address] YEAST 2+ /hpf Normal None Seen [facility] Comment on above: Order Comment: JASWINDER TER SPECIMEN Performed By: #### L 400.0001, M100.678, M100.2200 ####[facility] [address] [place], [address] BACTERIA 2+ /hpf Normal None Seen [facility] Comment on above: Order Comment: JASWINDER TER SPECIMEN Performed By: #### L 400.0001, M100.678, M100.2200 ####[facility] [address] [place], [address] WBC 25-50 SEEN Normal 0-5 [facility] Comment on above: Order Comment: JASWINDER TER SPECIMEN Performed By: #### L 400.0001, M100.678, M100.2200 ####[facility] [address] [place], [address] EPI,SQUAMOUS 0 SEEN Normal 0-5 [facility] Comment on above: Order Comment: JASWINDER TER SPECIMEN Performed By: #### L 400.0001, M100.678, M100.2200 ####[facility] [address] [place], [address] Mucus Ql (Urine sed) 0 SEEN Normal [facility] Comment on above: Order Comment: JASWINDER TER SPECIMEN Performed By: #### L 400.0001, M100.678, M100.2200 ####[facility] [address] [place], [address] Urine blood detectionOrdered By: Keznie Britton on 08-25-2024 Urine blood detection 25 /ul High Negative [facility] Urine cultureOrdered By: Niko Britton on 08-25-2024 Urine culture Klebsiella pneumonia e sp pneum Abnormal [facility] Urine sediment bacteria coun t by microscopy (number/high power field)Ordered By: Kenzie Britton on 08-25-2024 Urine sediment bacteria count by microscopy (number/high power field) 2+ /hpf None Seen [facility] Urine total bilirubin detect ion by test stripOrdered By: Kenzie Britton on 08-25-2024 Urine total bilirubin detection by test strip Negative Negative [facility] Urobilinogen Ql (U)Ordered B y: Kenzie Britton on 08-25-2024 Urine urobilinogen measurement 1 mg/dl High Normal [facility] White blood cell countOrdere d By: Kenzie Britton on 08-25-2024 White blood cell count 25-50 SEEN /hpf 0-5 [facility] aPTT Coag (PPP) [Time]Ordere d By: Kenzie Britton on 08-25-2024 Activated partial thromboplastin time (aPTT) in platelet poor plasma by coagulation a 47.7 Seconds High 24.1-36.2 [facility] pH (U)Ordered By: Kenzie trujillo on 08-25-2024 Urine pH 6.0 5.0 - 8.0 [facility] BRIEF OP NOTon 07-29-2024 BRIEF OP NOT HNO ID: [id number] Author: ERIC GONZALEZ DO Service: Interventional Radiology Author Type: Physician Type: Brief Op Note Filed: 07/29/2024 12:17 Note Text: BRIEF OPERATIVE / PROCEDURE NOTE LOG ID: [id number] SURGERY/PROCEDURE DATE: 07/29/2024 INCISION/PROCEDURE START TIME: 11:13 AM INCISION CLOSE/PROCEDURE END TIME: 11:24 AM SURGEON(S)/PROCEDURALI ST(S) [employer] TEAM MEMBER(S): Surgeons and Role: * Eric Gonzalez DO [...] July 29, 2024 TIME: 12:16 PM Normal [facility] CBC panel Auto (Bld)on 07-29 Erythrocyte distribution width (RBC) [Ratio] 13.2 % Normal 11.5-15.0 [facility] Comment on above: Order Comment: Speci men Type: BLOOD SPECIMEN Ordering Facility: [facility] Address: [address] [place] [address] Performed By: #### 5 8410-2 #### [facility] CLIA [id number] [address] Hematocrit (Bld) [Volume fraction] 39.1 % Normal 39.0-51.0 [facility] Comment on above: Order Comment: Speci men Type: BLOOD SPECIMEN Ordering Facility: [facility] Address: [address] [place] [address] Performed By: #### 5 8410-2 #### [facility] CLIA [id number] [address] [place] Hemoglobin (Bld) [Mass/Vol] 13.3 g/dL Normal 13.0-17.0 [facility] Comment on above: Order Comment: Speci men Type: BLOOD SPECIMEN Ordering Facility: [facility] Address: [address] [place] [address] Performed By: #### 5 8410-2 #### [facility] CLIA [id number] [address] MCH (RBC) [Entitic mass] 29.8 pg Normal 26.0-34.0 [facility] Comment on above: Order Comment: Speci men Type: BLOOD SPECIMEN Ordering Facility: [facility] Address: [address] [place] [address] Performed By: #### 5 8410-2 #### [facility] CLIA [id number] [address] [place] MCHC (RBC) [Mass/Vol] 34.0 g/dL Normal 30.5-36.0 [facility] Comment on above: Order Comment: Speci men Type: BLOOD SPECIMEN Ordering Facility: [facility] Address: [address] [place] [address] Performed By: #### 5 8410-2 #### [facility] CLIA [id number] [address] MCV (RBC) [Entitic vol] 87.5 fL Normal 80.0-100.0 [facility] Comment on above: Order Comment: Speci men Type: BLOOD SPECIMEN Ordering Facility: [facility] Address: [address] [place] [address] Performed By: #### 5 8410-2 #### [facility] CLIA [id number] [address] [place] [address] [place] Nucleated RBC (Bld) [#/Vol] 10*3/uL Normal <0.01 [facility] Comment on above: Order Comment: Speci men Type: BLOOD SPECIMEN Ordering Facility: [facility] Address: [address] [place] [address] Performed By: #### 5 8410-2 #### [facility] CLIA [id number] [address] [place] [address] [place] Platelet mean volume (Bld) [Entitic vol] 9.4 fL Normal 9.0-12.7 [facility] Comment on above: Order Comment: Speci men Type: BLOOD SPECIMEN Ordering Facility: [facility] Address: [address] [place] [address] Performed By: #### 5 8410-2 #### [facility] CLIA [id number] [address] [place] Platelets (Bld) [#/Vol] 253 10*3/uL Normal 150-400 [facility] Comment on above: Order Comment: Speci men Type: BLOOD SPECIMEN Ordering Facility: [facility] Address: [address] [place] [address] Performed By: #### 5 8410-2 #### [facility] CLIA [id number] [address] [place] RBC (Bld) [#/Vol] 4.47 10*6/uL Normal 4.20-6.00 [facility] Comment on above: Order Comment: Speci men Type: BLOOD SPECIMEN Ordering Facility: [facility] Address: [address] [place] [address] Performed By: #### 5 8410-2 #### [facility] CLIA [id number] [address] [place] WBC (Bld) [#/Vol] 7.72 10*3/uL Normal 3.70-11.00 [facility] Comment on above: Order Comment: Speci men Type: BLOOD SPECIMEN Ordering Facility: [facility] Address: [address] [place] [address], [place] [address] Performed By: #### 5 8410-2 #### [facility] CLIA [id number] [address] [place] [address] [place] HISTORY PHYSICALon HISTORY PHYSICAL HNO ID: [id number] Author: ERIC GONZALEZ DO Service: Interventional Radiology [...] Anxiety and depression CAD (coronary artery disease) [place] 2008 CVA (cerebral infarction) DM (diabetes mellitus) [...] TIB/DIANNA W/ANGIOPLASTY [facility] 08-14-15 Prior to Admission medications as of [...] DATE: July 29, 2024 TIME: 10:53 AM [facility] IR SUPRAPUBIC TUBE PLACEMENT on 07-29-2024 IR SUPRAPUBIC TUBE PLACEMENT * * *Final Report* * * DATE OF EXAM: Jul 29 2024 11:24AM [facility] 5612 - IR SUPRAPUBIC TUBE PLACEMENT [...] away sheath. Suprapubic catheter placed: 18 F [place] tip mackenzie Findings: Appropriately positioned suprapubic catheter [...] performed by the: attending radiologist, without an bilingual teacher assistant. The attending radiologist performed the following procedural activities: Entire procedure IMPRESSION: IMAGE-GUIDED 18 ETHIOPIAN SUPRAPUBIC CATHETER PLACEMENT. Plan: Catheter may be allowed to drain passively into bag until next catheter exchange. Catheter exchange by experienced clinician after 8 weeks as needed. Attestation Signer name: Eric Gonzalez, DO I attest that I was present for the entire procedure. I reviewed the stored images and agree with the report as wr (more content not included)... Normal [facility] PT panel Coag (PPP)on 2023 INR Coag (PPP) [Relative time] 1.0 {INR} Normal 0.9-1.3 [facility] Comment on above: Order Comment: Speci men Type: BLOOD SPECIMEN Ordering Facility: [facility] Address: [address] [place], [place] [id number] Result Comment: Cassandra min K Antagonist (VKA) Therapeutic Range: INR 2 to 3 (Target INR of 2.5) Note: For patients treated with VKA drugs, such as warfarin, the [employer] 2012 Guideline recommends [...] GH, et al. Chest 2012, 141:7S-47S Enoch MONSON, et al. [facility] 2017, 70: 252-289 Performed By: #### 3 4528-0 #### [facility] CLIA [id number] [address] [place] [address] [place] PT Coag (PPP) [Time] 10.9 s Normal 9.7-13.0 [facility] Comment on above: Order Comment: Speci men Type: BLOOD SPECIMEN Ordering Facility: [facility] Address: [address] [place] [address] Performed By: #### 3 4528-0 #### [facility] CLIA [id number] [address] [place] Zoltan 06-28-2024 CNPN Telephone (VITA) ISAIAS VEGA ([id number]) 1955 M Date Time Provider Department 06/28/24 FLOWER VILLANUEVA During your visit today, we recorded the following information about you: Flower Villanueva, RASHI 06/28/2024 2:25 PM Signed [facility] [employer] spoke with pt regarding his upcoming visit [...] place ([facility]) [Z93.3] 05/26/2020 [facility] (current) use of 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/anti*1 Small bowel obstruction [...] Electrolyte imbalance [E87.8] 12/19/2023 Frail elderly [R54] more content not included)... Normal [facility] CNPNon 06-27-2024 CNPN Telephone (SHARITAI) ISAIAS VEGA ([id number]) 1955 M Date Time Provider Department 06/27/24 GREGORIO VILLALOBOS During your visit today, we recorded the following information about you: Gregorio Villalobos RN 06/27/2024 9:45 AM Signed [facility]ARE COORDINATION TELEPHONE ENCOUNTER LVM with [...] place ([facility]) [Z93.3] 05/26/2020 [facility] (current) use of 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/anti*1 Small bowel obstruction [...] Encounter Sta (more content not included)... Normal [facility] CBC W Auto Differential pane l (Bld)on 06-17-2024 Basophils (Bld) [#/Vol] 0.03 10*3/uL Normal <0.11 [facility] Comment on above: Order Comment: Speci men Type: BLOOD SPECIMENOrdering Facility: [facility] Address: [address] [place] [address] Performed By: #### 5 7021-8 ####[facility] [id number] [place] [address] [place] [facility] Basophils/100 WBC (Bld) 0.4 % Normal [facility] Comment on above: Order Comment: Speci men Type: BLOOD SPECIMENOrdering Facility: [facility] Address: [address] [place] [address] Performed By: #### 5 7021-8 ####[facility] [id number] [place] [address] [place] Differential cell count method Nom (Bld) Auto Normal [facility] Comment on above: Order Comment: Speci men Type: BLOOD SPECIMENOrdering Facility: [facility] Address: [address] [place] [address] Performed By: #### 5 7021-8 ####[facility] [id number] [place] [address] [place] Eosinophils (Bld) [#/Vol] 0.14 10*3/uL Normal <0.46 [facility] Comment on above: Order Comment: Speci men Type: BLOOD SPECIMENOrdering Facility: [facility] Address: [address] [place] [address] Performed By: #### 5 7021-8 ####[facility] [id number] [place] [address] [place] Eosinophils/100 WBC (Bld) 1.7 % Normal [facility] Comment on above: Order Comment: Speci men Type: BLOOD SPECIMENOrdering Facility: [facility] Address: [address] [place] [address] Performed By: #### 5 7021-8 ####[facility] [id number] [place] [address] [place] Erythrocyte distribution width (RBC) [Ratio] 13.3 % Normal 11.5-15.0 [facility] Comment on above: Order Comment: Speci men Type: BLOOD SPECIMENOrdering Facility: [facility] Address: [address] [place] [address] Performed By: #### 5 7021-8 ####[facility] [id number] [place] [address] [place] Hematocrit (Bld) [Volume fraction] 37.7 % Low 39.0-51.0 [facility] Comment on above: Order Comment: Speci men Type: BLOOD SPECIMENOrdering Facility: [facility] Address: [address] [place] [address] Performed By: #### 5 7021-8 ####[facility] MITZYHORMIGUEROSISAIAS [id number] [place] [address] [place] Hemoglobin (Bld) [Mass/Vol] 12.4 g/dL Low 13.0-17.0 [facility] Comment on above: Order Comment: Speci men Type: BLOOD SPECIMENOrdering Facility: [facility] Address: [address] [place] [address] Performed By: #### 5 7021-8 ####[facility] [id number] [place] [address] [place] Immature granulocytes (Bld) [#/Vol] 0.05 10*3/uL Normal <0.10 [facility] Comment on above: Order Comment: Speci men Type: BLOOD SPECIMENOrdering Facility: [facility] Address: [address] [place] [address] Performed By: #### 5 7021-8 ####[facility] [id number] [place] [address] [place] Immature granulocytes/100 WBC (Bld) 0.6 % Normal [facility] Comment on above: Order Comment: Speci men Type: BLOOD SPECIMENOrdering Facility: [facility] Address: [address] [place] [address] Performed By: #### 5 7021-8 ####[facility] ERNCLIA [id number] [place] [address] [place] Lymphocytes (Bld) [#/Vol] 0.97 10*3/uL Low 1.00-4.00 [facility] Comment on above: Order Comment: Speci men Type: BLOOD SPECIMENOrdering Facility: [facility] Address: [address] [place] [address] Performed By: #### 5 7021-8 ####[facility] MITZYHORMIGUEROSLUANNEA [id number] [place] [address] [place] Lymphocytes/100 WBC (Bld) 12.0 % Normal [facility] Comment on above: Order Comment: Speci men Type: BLOOD SPECIMENOrdering Facility: [facility] Address: [address] [place] [address] Performed By: #### 5 7021-8 ####[facility] [id number] [place] [address] [place] MCH (RBC) [Entitic mass] 29.1 pg Normal 26.0-34.0 [facility] Comment on above: Order Comment: Speci men Type: BLOOD SPECIMENOrdering Facility: [facility] Address: [address] [place] [address] Performed By: #### 5 7021-8 ####[facility] [id number] [place] [address] [place] MCHC (RBC) [Mass/Vol] 32.9 g/dL Normal 30.5-36.0 [facility] Comment on above: Order Comment: Speci men Type: BLOOD SPECIMENOrdering Facility: [facility] Address: [address] [place] [address] Performed By: #### 5 7021-8 ####[facility] [id number] [place] [address] [place] MCV (RBC) [Entitic vol] 88.5 fL Normal 80.0-100.0 [facility] Comment on above: Order Comment: Speci men Type: BLOOD SPECIMENOrdering Facility: [facility] Address: [address] [place] [address] Performed By: #### 5 7021-8 ####[facility] [id number] [place] [address] [place] Monocytes (Bld) [#/Vol] 0.72 10*3/uL Normal <0.87 [facility] Comment on above: Order Comment: Speci men Type: BLOOD SPECIMENOrdering Facility: [facility] Address: [address] [place] [address] Performed By: #### 5 7021-8 ####[facility] [id number] [place] [address] [place] Monocytes/100 WBC (Bld) 8.9 % Normal [facility] Comment on above: Order Comment: Speci men Type: BLOOD SPECIMENOrdering Facility: [facility] Address: [address] [place] [address] Performed By: #### 5 7021-8 ####[facility] [id number] [place] [address] [place] Neutrophils (Bld) [#/Vol] 6.18 10*3/uL Normal 1.45-7.50 [facility] Comment on above: Order Comment: Speci men Type: BLOOD SPECIMENOrdering Facility: [facility] Address: [address] [place] [address] Performed By: #### 5 7021-8 ####[facility] [id number] [place] [address] [place] Neutrophils/100 WBC (Bld) 76.4 % Normal [facility] Comment on above: Order Comment: Speci men Type: BLOOD SPECIMENOrdering Facility: [facility] Address: [address] [place] [address] Performed By: #### 5 7021-8 ####[facility] [id number] [place] [address] [place] Nucleated RBC (Bld) [#/Vol] 10*3/uL Normal <0.01 [facility] Comment on above: Order Comment: Speci men Type: BLOOD SPECIMENOrdering Facility: [facility] Address: [address] [place] [address] Performed By: #### 5 7021-8 ####[facility] SHAWANDA [id number] [place] [address] [place] Nucleated RBC/100 WBC (Bld) [Ratio] 0.0 /100 WBC Normal [facility] Comment on above: Order Comment: Speci men Type: BLOOD SPECIMENOrdering Facility: [facility] Address: [address] [place] [address] Performed By: #### 5 7021-8 ####[facility] MITZYHORMIGUEROSISAIAS [id number] [place] [address] [place] Platelet mean volume (Bld) [Entitic vol] 9.4 fL Normal 9.0-12.7 [facility] Comment on above: Order Comment: Speci men Type: BLOOD SPECIMENOrdering Facility: [facility] Address: [address] [place] [address] Performed By: #### 5 7021-8 ####[facility] ERISAIAS [id number] [place] [address] [place] Platelets (Bld) [#/Vol] 289 10*3/uL Normal 150-400 [facility] Comment on above: Order Comment: Speci men Type: BLOOD SPECIMENOrdering Facility: [facility] Address: [address] [place] [address] Performed By: #### 5 7021-8 ####[facility] ERVIGNESHLIA [id number] [place] [address] [place] RBC (Bld) [#/Vol] 4.26 10*6/uL Normal 4.20-6.00 [facility] Comment on above: Order Comment: Speci men Type: BLOOD SPECIMENOrdering Facility: [facility] Address: [address] [place] [address] Performed By: #### 5 7021-8 ####[facility] COUNTYWNCLIA [id number] [place] [address] [place] WBC (Bld) [#/Vol] 8.09 10*3/uL Normal 3.70-11.00 [facility] Comment on above: Order Comment: Speci men Type: BLOOD SPECIMENOrdering Facility: [facility] Address: [address] [place] [address] Performed By: #### 5 7021-8 ####[facility] [id number] [place] [address] [place] PT panel Coag (PPP)on 2023 INR Coag (PPP) [Relative time] 1.0 {INR} Normal 0.9-1.3 [facility] Comment on above: Order Comment: Speci men Type: BLOOD SPECIMENOrdering Facility: [facility] Address: [address] [place] [address] Result Comment: Cassandra min K Antagonist (VKA) Therapeutic Range: INR 2 to 3 (Target INR of 2.5) Note: For patients treated with VKA drugs, such as warfarin, the [employer] 2012 Guideline recommends [...] GH, et al. Chest 2012, 141:7S-47S Enoch RA et al. [facility] 2017, 70: 252-289 Performed By: #### 3 4528-0 ####[facility] [id number] [address] [place] PT Coag (PPP) [Time] 10.3 s Normal <13.1 [facility] Comment on above: Order Comment: Speci men Type: BLOOD SPECIMENOrdering Facility: [facility] Address: [address] [place] [address] Performed By: #### 3 4528-0 ####[facility] [id number] [address] CNPNurys 06-11-2024 CNPN Telephone (UROLMD) ISAIAS VEGA ([id number]) 1955 M Date Time Provider Department 06/11/24 PEBBLES BARFIELD During your visit today, we recorded the following information about you: Dionne Clinton RN 06/11/2024 2:21 PM Signed Patient calling to see about how to schedule the IR SPT. I called and left a message on IR Voicemail to help get scheduled. Called patient back and left a message about that I reached out to IR, and gave their number to call back if he misses their call. IR #[phone]. 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 Normal [facility] CNOVon 06-04-2024 CNOV Office Visit (CORESTER ) ISAIAS VEGA ([id number]) 1955 M Date Time Provider Department 06/04/24 [...] Anxiety and depression CAD (coronary artery disease) [place] 2008 CVA (cerebral infarction) DM (diabetes mellitus) [...] CENTER Right 07-01-15 REVSC OPN/PRQ TIB/DIANNA W/ANGIOPLASTY UNI [...] No Physi (more content not included)... Normal [facility] Office Visit (GENBMI ) ISAIAS VEGA ([id number]) 1955 M Date Time Provider Department 06/04/24 [...] followup regarding ostomy Patient came home from alf in mid March. He weighed 110lbs upon [...] Anxiety and depression CAD (coronary artery disease) [place] 2008 CVA (cerebral infarction) DM (diabetes mellitus) [...] taking: Rep (more content not included)... Normal [facility] CNOVon 05-31-2024 CNOV Office Visit (UROBENEDICTOD ) ISAIAS VEGA ([id number]) 1955 M Date Time Provider Department 05/31/24 9:30 AM PEBBLES BARFIELD During your visit today, we recorded the following information about you: Pulse Respiration Blood pressure Weight 76/minute 20/minute 121/68 49.9 kg Height 1.702 m Pebbles Barfield MD 05/31/2024 12:13 PM Signed [facility] Patient presents with urinary retention for cystoscopy. [facility] notes reviewed: 03/11/2024: OV Niko Drew Past medical Hx: 2 CVA with left-sided hemiplegia, diabetes, [employer] anticoag - Eliquis, colorectal cancer, ileostomy for 3 years, LASHONDA, HTN, HLD, GERD, ALEJANDRO, RLS, MDD In [facility] in [place]. Had a stroke in 2008 and 2011. Using a walker since 2019, and in November had SBO that placed him in the hospital. Failed TOV x3. Was placed on Flomax which has not made a difference with TOV. Has chronic macknezie in place. Now nonambulatory due to chronic [...] patient: Yes Procedure confirmed with physician and computer support technician: Yes UNIVERSAL PROTOCOL / SAFETY CHECKLIST Procedure [...] Pre-Procedure Vit (more content not included)... Normal [facility] Echo Completeon 05-28-2024 Echo Complete Normal [facility] Visit Reporton Cardiology Visit Report Normal [facility] CNNURSEon 05-03-2024 CNNURSE Nurse Visit (CORESTER) ISAIAS VEGA ([id number]) 1955 Date Time Provider Department 05/03/24 1:00 PM STOMA THERAPY CORSMN During your visit today, we recorded the following information about you: Ailyn Warren RN 05/03/2024 1:34 PM Signed [facility] [place] [phone] Patient: Isaias Vega Patient Address: [address] [place] [address] Dr Perez [facility] Preferred Gender: male Date of : 1955 Type of Stoma: End Ileostomy Diagnosis: Rectal Cancer C20 OSTOMY SUPPLY ORDER FORM Pouch: [place]: New Image 2 ? Beige Lock 'n Roll, drainable pouch #10314 New Image 2 ? High Output Wide Bore #47896 30 day use - 2 Boxes (20 pouches) Wafer: Ranjana: New Image CeraPlus 2 1/4 Convex, with tape # 10949 30 day use - 4 Boxes (20 flanges) Adhesive Removers: ConvaTec Esenta Wipes #558629 30 day use - 1 Box Belt: [place] Medium # 7300 30 day use - 2 belts [facility]. Accessories: Mefix Tape 2 # 877754 30 day use - As Needed Paste: ConvaTec Stomahesive # 556047 30 day use - 2 Tubes Powder: ConvaTec Stomahesive # 03154 30 day use - 1 Bottle Skin Sealant: 3M No Sting, 30/Box # 8115 30 day use - As Needed Other: Molnlycke Mepore dressing 3 3/5 x 4 #935770 50/Box 30 day use - 1 Box B[place]zy [place] large bore drainage bag #8961 30 day use - 2 Bags as needed. Refills: 11 Attending Physician: Dr. Galarza For immediate authorization, please contact the physician?s office. [facility] Nurse: JIM Melchor, CWOCN Note: SIGNATURE: Ailyn Gabriel RN PATIENT NAME: Isaias Vega DATE: May 03, 2024 TIME: 1:26 PM CONTACT #: [phone] Ailyn Warren RN 05/03/2024 5:23 PM Signed ET/WOCN Nursing Consult Topic: ET/WOCN Consultation Note ET Outcome: Pt came to see the [facility] nurse via wheel chair accompanied [...] per day per pt. Current pouching system: [place] New Image 1 3/4 flat flange cut [...] End colostomy as non functional stoma at [facility]. Stoma was red and moist, budded. [...] 1 hour JIM March RN CWOCN The [facility] nursing pager [phone] (M-F 7a-4p, Sat, Sun, Holiday 7a-3p) Referring Provider: MATT PENNY [[id number]] Allergies As of Date: 05/03/2024 (No Known Allergies) Date Reviewed: 04/10/2024 Reviewed by: Iwona Taylor, RASHI - Fully Assessed Primary Visit Diagnosis:Attention to ileostomy (HCC) [Z43.2] Prescriptions as of 05/03/2024 - tamsulosin (FLOMAX) 0.4 mg Take 0.8 mg by mouth once daily. - clopidogrel (PLAVIX) 75 mg tabl (more content not included)... Normal [facility] CNNURSEon 05-02-2024 CNNURSE Nurse Visit (UROSMN) ISAIAS VEGA ([id number]) 1955 M Date Time Provider Department 05/02/24 10:00 AM FLUROURODYNAMICS UROSMN During your visit today, we recorded the following information about you: Rosy Bautista RN 05/02/2024 11:50 AM Signed [facility] URODYNAMICS LAB URODYNAMIC [...] allergy: No Females- Is patient : No Trousseau Consultant offered: Patient declines B/O UA: Not completed [...] conversion to SPT Referring Provider: PEBBLES BARFIELD [[id number]] Allergies As of Date: 05/02/2024 (No Known Allergies) Date Reviewed: 04/10/2024 Reviewed by: Iwona Taylor, RASHI - Fully Assessed Primary Visit Diagnosis:Retention of [...] Take 1 (more content not included)... [facility] (MEPRAD) ISAIAS VEGA ([id number]) 1955 M Date Time Provider Department 04/12/24 PEBBLES BARFIELD During your visit today, we recorded the following information about you: Pebbles Barfield MD 04/12/2024 3:37 PM Signed Patient was supposed to have UDS at [facility], but catheter was malpositioned and he had a UTI, so they replaced his catheter, sent a culture and deferred the UDS. Urine culture came back, so I called in [facility] for him to take for 10 days. Also needs to reschedule his UDS (needs to be at [facility] due to need for Tricia lift). We can also reschedule his visit with me until after his UDS. Kenzie Drew, BALTAZAR.LORRIE CHI 04/12/2024 4:55 PM Signed Amira Bang. Have a great weekend! Rose Barnett 04/15/2024 8:46 AM Signed LM to PT to call back to schedule the UDS and to RS Dr. Barfield's appt. Rose Chen 04/15/2024 10:02 AM Signed PT called back and was scheduled for both appointment by Joanne. 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 Normal [facility] Bacteria Ur Culton Bacteria identified Cx Nom [...] , Intermediate >32 , Resistant >64 Abnormal [facility] Comment on above: Performed By: #### 6 30-4 ####[facility] LABCLIA [id number] [address] OF [facility] CNNURSEon 04-10-2024 CNNURSE Nurse Visit (UROSMN) ISAIAS VEGA ([id number]) 1955 M Date Time Provider Department 04/10/24 10:00 AM FLUROURODYNAMICS UROSMN During your visit today, we recorded the following information about you: Iwona Taylor RN 04/10/2024 10:31 AM Signed [facility] URODYNAMICS LAB URODYNAMIC [...] NONE Latex allergy: No Iodine allergy: No Trousseau Consultant offered:Patient declines B/O UA: Yes, Positive for [...] Modules accepted: Orders Referring Provider: PEBBLES BARFIELD [[id number]] Allergies As of Date: 04/10/2024 (No Known Allergies) Date Reviewed: 04/10/2024 Reviewed by: Iwona Taylor RN - Fully Assessed Primary Visit Diagnosis:Retention of urine [R33.9] Other Visit Diagnosis:Gross hematuria [R31.0] Order(s):URINE CULTURE [SQURCUL] Order #: [id number]. #:[id number] Prescriptions as of 04/10/2024 - tamsulosin (FLOMAX) [...] 05/26/2020 Hist (more content not included)... Normal [facility] CNOVon 03-11-2024 CNOV Office Visit (UROLMD ) ISAIAS VEGA ([id number]) 1955 M Date Time Provider Department 03/11/24 9:00 AM KENZIE DREW URORYNE During your visit today, we recorded the following information about you: Weight 49 kg Kenzie Drew APRN.JUNIOR ANALYST, DNP 03/12/2024 11:03 AM Signed [facility] MALE PATIENT - HISTORY AND PHYSICAL EXAMINATION PATIENT: Isaias Vega (68 year old) 03/11/2024 PCP: Kendy Modi MD CHIEF COMPLAINT: LUTS HISTORY OF PRESENT ILLNESS: 68 year old year old male with LUTS. 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 Small bowel obstruction [...] Status:Closed by GREGORIO VILLALOBOS on 01/31/24 Normal [facility] .Auto Diffon 01-12-2024 Basophil, Absolute 0.0 10 3/mcL Normal 0.0-0.3 [facility] ([place]) Comment on above: Performed By: #### C CASA GARAY ANEU #### [address] [address] Basophils/100 WBC (Bld) 0.3 % Normal 0.0-2.5 A [facility] ([place]) Comment on above: Performed By: #### CASA SIN ANEU #### [address] [address] Eosinophil, Absolute 0.1 10 3/mcL Normal 0.0-0.7 [facility] ([place]) Comment on above: Performed By: #### C CASA GARAY ANEU #### [address] [address] Eosinophils/100 WBC (Bld) 1.5 % Normal 0.0-6.0 [facility] ([place]) Comment on above: Performed By: #### CASA SIN ANEU #### [address] [address] Lymphocyte, Absolute 1.0 10 3/mcL Normal 0.9-4.3 [facility] ([place]) Comment on above: Performed By: #### CASA SIN ANEU #### [address] [address] Lymphocytes/100 WBC (Bld) 12.4 % Low 20.0-40.0 [facility] ([place]) Comment on above: Performed By: #### CASA SIN ANEU #### [address] [address] Monocyte, Absolute 0.9 10 3/mcL Normal 0.1-1.4 [facility] ([place]) Comment on above: Performed By: #### CASA SIN ANEU #### [address] [address] Monocytes/100 WBC (Bld) 11.2 % Normal 2.0-13.0 A [facility] ([place]) Comment on above: Performed By: #### CASA SIN ANEU #### [address] [address] Neutrophils/100 WBC (Bld) 74.6 % Normal 50.0-75.0 [facility] ([place]) Comment on above: Performed By: #### CASA SIN, ANEU #### [address] [address] .NEUABSon 01-12-2024 Neutrophil, Absolute 6.0 10 3/mcL Normal 2.3-8.1 [facility] ([place]) Comment on above: Performed By: #### CASA SIN, ANEU #### [address] [address] CBCon 01-12-2024 Erythrocyte distribution width (RBC) [Ratio] 17.5 % High 11.5-15.5 [facility] ([place]) Comment on above: Performed By: #### C CASA GARAY, ANEU #### [address] [address] Hematocrit (Bld) [Volume fraction] 35.2 % Low 40.0-52.0 [facility] ([place]) Comment on above: Performed By: #### C CASA GARAY, ANEU #### [address] [address] Hgb 11.9 G/dL Low 13.0-17.5 [facility] ([place]) Comment on above: Performed By: #### C CASA GARAY, ANEU #### [place] [id number] MCH (RBC) [Entitic mass] 29.4 pg Normal 27.0-33.0 [facility] ([place]) Comment on above: Performed By: #### C CASA GARAY, ANEU #### [place] [id number] MCHC 33.7 G/dL Normal 32.0-36.0 [facility] ([place]) Comment on above: Performed By: #### C CASA GARAY, ANEU #### [place] [id number] MCV (RBC) [Entitic vol] 87.4 fL Normal 81.0-100.0 A [facility] ([place]) Comment on above: Performed By: #### C CASA GARAY, ANEU #### [place] [id number] Platelet 571 10 3/mcL High 150-450 [facility] ([place]) Comment on above: Performed By: #### C CASA GARAY, ANEU #### [place] [id number] Platelet mean volume (Bld) [Entitic vol] 7.9 fL Normal 6.4-10.5 [facility] ([place]) Comment on above: Performed By: #### C CASA GARAY, ANEU #### [place] [id number] RBC 4.03 10 6/mcL Low 4.50-6.00 [facility] ([place]) Comment on above: Performed By: #### C CASA GARAY, ANEU #### [place] [id number] WBC 8.1 10 3/mcL Normal 4.5-10.8 [facility] ([place]) Comment on above: Performed By: #### C CASA GARAY, ANEU #### [place] [id number] UAon 01-11-2024 Color (U) Yellow Normal [facility] ([place]) Comment on above: Order Comment: NO [place] BUCKLE FRAME SHAPER!!!!! Performed By: #### C CASA GARAY, ANEU #### [place] [address] Glucose (U) [Mass/Vol] 100 mg/dL Abnormal Negative [facility] ([place]) Comment on above: Order Comment: NO [place] BUCKLE FRAME SHAPER!!!!! Performed By: #### C CASA GARAY, ANEU #### [place] [address] Ketones Ql (U) Negative Normal Neg-Trace [facility] ([place]) Comment on above: Order Comment: NO [place] BUCKLE FRAME SHAPER!!!!! Performed By: #### C CASA GARAY, ANEU #### [place] [address] UA Appear Clear Normal Clear [facility] ([place]) Comment on above: Order Comment: NO [place] BUCKLE FRAME SHAPER!!!!! Performed By: #### C CASA GARAY, ANEU #### [place] [address] UA Blood Small Abnormal Neg-Trace [facility] ([place]) Comment on above: Order Comment: NO [place] BUCKLE FRAME SHAPER!!!!! Performed By: #### CASA SIN, ANEU #### [place] [id number] UA Leuk Est Moderate Abnormal Negative [facility] ([place]) Comment on above: Order Comment: NO [place] BUCKLE FRAME SHAPER!!!!! Performed By: #### C CASA GARAY, ANEU #### [address] [address] UA Nitrite Negative Normal Negative [facility] ([place]) Comment on above: Order Comment: NO [place] BUCKLE FRAME SHAPER!!!!! Performed By: #### C CASA GARAY, ANEU #### [address] [address] UA pH 5.5 Normal 5.0 - 8.0 [facility] ([place]) Comment on above: Order Comment: NO [place] BUCKLE FRAME SHAPER!!!!! Performed By: #### C CASA GARAY, ANEU #### [place] [address] UA Protein 30 mg/dL Normal Negative [facility] ([place]) Comment on above: Order Comment: NO [place] BUCKLE FRAME SHAPER!!!!! Performed By: #### C CASA GARAY, ANEU #### [place] [address] UA Spec Grav 1.015 Normal 1.006-1.029 [facility] ([place]) Comment on above: Order Comment: NO [place] BUCKLE FRAME SHAPER!!!!! Performed By: #### C CASA GARAY, ANEU #### [place] [address] UA Specimen Type Straight Cath Normal [facility] ([place]) Comment on above: Order Comment: NO [place] BUCKLE FRAME SHAPER!!!!! Performed By: #### C CASA GARAY, ANEU #### [place] [address] UA Urobilinogen 0.2 E.U./dL Normal 0.2-1.0 [facility] ([place]) Comment on above: Order Comment: NO [place] BUCKLE FRAME SHAPER!!!!! Performed By: #### C CASA GARAY, ANEU #### [place] [address] Urobilinogen (U) [Mass/Vol] Negative Normal Neg-Trace [facility] ([place]) Comment on above: Order Comment: NO [place] BUCKLE FRAME SHAPER!!!!! Performed By: #### C CASA GARAY, ANEU #### [place] [address] UAMICon 01-11-2024 UA Amorphus Trace Normal [facility] ([place]) Comment on above: Performed By: #### C CASA GARAY, ANEU #### [place] [address] UA RBC 0-2 Normal 0-2 [facility] ([place]) Comment on above: Performed By: #### C CASA GARAY, ANEU #### [place] [address] UA Renal Epithelial Rare Normal [facility] ([place] Comment on above: Performed By: #### C CASA GARAY, ANEU #### [place] [address] UA Squam Epithelial Rare Normal 0-20 [facility] ([place] Comment on above: Performed By: #### C CASA GARAY, ANEU #### [place] [address] UA WBC 25-50 Abnormal 0-5 [facility] ([place] Comment on above: Performed By: #### CASA SIN, ANEU #### [place] [address] UA Yeast 1+ /hpf Abnormal [facility] ([place]) Comment on above: Performed By: #### CASA SIN, ANEU #### [place] [address] .Auto Diffon 01-08-2024 Basophil, Absolute 0.0 10 3/mcL Normal 0.0-0.3 [facility] ([place]) Comment on above: Performed By: #### CASA SIN, ANEU #### [place] [address] Basophils/100 WBC (Bld) 0.3 % Normal 0.0-2.5 A [facility] ([place]) Comment on above: Performed By: #### C CASA GARAY, ANEU #### [place] [address] Eosinophil, Absolute 0.2 10 3/mcL Normal 0.0-0.7 [facility] ([place]) Comment on above: Performed By: #### CASA SIN, ANEU #### [address] [address] Eosinophils/100 WBC (Bld) 1.8 % Normal 0.0-6.0 [facility] ([place]) Comment on above: Performed By: #### C CASA GARAY, ANEU #### [address] [address] Lymphocyte, Absolute 0.7 10 3/mcL Low 0.9-4.3 [facility] ([place]) Comment on above: Performed By: #### C CASA GARAY, ANEU #### [address] [address] Lymphocytes/100 WBC (Bld) 8.0 % Low 20.0-40.0 [facility] ([place]) Comment on above: Performed By: #### CASA SIN, ANEU #### [address] [address] Monocyte, Absolute 0.7 10 3/mcL Normal 0.1-1.4 [facility] ([place]) Comment on above: Performed By: #### CASA SIN, ANEU #### [address] [address] Monocytes/100 WBC (Bld) 8.2 % Normal 2.0-13.0 A [facility] ([place]) Comment on above: Performed By: #### CASA SIN, ANEU #### [address] [address] Neutrophils/100 WBC (Bld) 81.7 % High 50.0-75.0 [facility] ([place]) Comment on above: Performed By: #### CASA SIN, ANEU #### [address] [address] .GFRon 01-08-2024 GFR >60 Normal [facility] ([place]) Comment on above: Result Comment: GFR Population [...] Performed By: #### CASA SIN ANEU #### [address] [address] GFR Non- >60 Normal [facility] ([place]) Comment on above: Result Comment: GFR Population [...] Performed By: #### CASA SIN ANEU #### [address] [address] .NEUABSon 01-08-2024 Neutrophil, Absolute 6.8 10 3/mcL Normal 2.3-8.1 [facility] ([place]) Comment on above: Performed By: #### CASA SIN ANEU #### [address] [address] BMPon 01-08-2024 BUN/Creatinine Ratio 31.9 ratio High 10.0-22.0 [facility] ([place]) Comment on above: Performed By: #### CASA SIN ANEU #### [address] [address] Calcium [Mass/Vol] 8.6 mg/dL Low 8.7-10.4 [facility] ([place]) Comment on above: Performed By: #### CASA SIN ANEU #### [address] [address] Chloride [Moles/Vol] 100 mmol/L Normal 98-110 [facility] ([place]) Comment on above: Performed By: #### C CASA GARAY, NAVIN #### [address] [address] CO2 [Moles/Vol] 25 mmol/L Normal 22-32 [facility] ([place]) Comment on above: Performed By: #### C CASA GARAY, NAVIN #### [address] [address] Creatinine [Mass/Vol] 0.72 mg/dL Normal 0.60-1.40 [facility] ([place]) Comment on above: Performed By: #### CASA SIN, NAVIN #### [address] [address] Electrolyte Balance 10.0 mEq/L Normal 4.0-15.0 [facility] ([place]) Comment on above: Performed By: #### CASA SIN, ANEU #### [address] [address] Glucose [Mass/Vol] 250 mg/dL High 82-115 [facility] ([place]) Comment on above: Performed By: #### CASA SIN, ANEU #### [address] [address] Potassium [Moles/Vol] 4.2 mmol/L Normal 3.5-5.0 [facility] ([place]) Comment on above: Performed By: #### CASA SIN, ANEU #### [address] [address] Sodium [Moles/Vol] 135 mmol/L Low 136-145 [facility] ([place]) Comment on above: Performed By: #### CASA SIN, ANEU #### [address] [address] Urea nitrogen [Mass/Vol] 23.0 mg/dL High 8.0-22.0 [facility] ([place]) Comment on above: Performed By: #### CASA SIN, ANEU #### [address] [address] CBCon 01-08-2024 Erythrocyte distribution width (RBC) [Ratio] 17.4 % High 11.5-15.5 [facility] ([place]) Comment on above: Performed By: #### C CASA GARAY, ANEU #### [place] [address] Hematocrit (Bld) [Volume fraction] 34.9 % Low 40.0-52.0 [facility] ([place]) Comment on above: Performed By: #### CASA SIN, NAVIN #### [place] [id number] Hgb 11.7 G/dL Low 13.0-17.5 [facility] ([place]) Comment on above: Performed By: #### C CASA GARAY ANEU #### [place] [address] MCH (RBC) [Entitic mass] 29.3 pg Normal 27.0-33.0 [facility] ([place] Comment on above: Performed By: #### C CASA GARAY, ANEU #### [place] [address] MCHC 33.4 G/dL Normal 32.0-36.0 [facility] ([place] Comment on above: Performed By: #### CASA SIN, ANEU #### [place] [id number] MCV (RBC) [Entitic vol] 87.8 fL Normal 81.0-100.0 A [facility] ([place]) Comment on above: Performed By: #### C CASA GARAY, ANEU #### [address] [address] Platelet 509 10 3/mcL High 150-450 [facility] ([place]) Comment on above: Performed By: #### CASA SIN, ANEU #### [place] [id number] Platelet mean volume (Bld) [Entitic vol] 8.0 fL Normal 6.4-10.5 [facility] ([place]) Comment on above: Performed By: #### C BC, ADIFF, ANEU #### [address] [address] RBC 3.98 10 6/mcL Low 4.50-6.00 [facility] ([place]) Comment on above: Performed By: #### C BC, ADIFF, ANEU #### [address] [address] WBC 8.3 10 3/mcL Normal 4.5-10.8 [facility] ([place]) Comment on above: Performed By: #### C BC, ADIFF, ANEU #### [address] [address] [address] .Auto Diffon 01-01-2024 Basophil, Absolute 0.1 10 3/mcL Normal 0.0-0.3 [facility] ([place]) Comment on above: Performed By: #### A DIFF, ANEU, CBC #### [address] [address] Basophils/100 WBC (Bld) 0.8 % Normal 0.0-2.5 A [facility] ([place]) Comment on above: Performed By: #### A DIFF, ANEU, CBC #### [address] [address] Eosinophil, Absolute 0.1 10 3/mcL Normal 0.0-0.7 [facility] ([place]) Comment on above: Performed By: #### A DIFF, ANEU, CBC #### [address] [address] Eosinophils/100 WBC (Bld) 1.7 % Normal 0.0-6.0 [facility] ([place]) Comment on above: Performed By: #### A DIFF, ANEU, CBC #### [address] [address] Lymphocyte, Absolute 0.6 10 3/mcL Low 0.9-4.3 [facility] ([place]) Comment on above: Performed By: #### A DIFF, ANEU, CBC #### [address] [address] Lymphocytes/100 WBC (Bld) 8.5 % Low 20.0-40.0 [facility] ([place]) Comment on above: Performed By: #### A DIFF, ANEU, CBC #### [address] [address] Monocyte, Absolute 0.8 10 3/mcL Normal 0.1-1.4 [facility] ([place] Comment on above: Performed By: #### A DIFF, ANEU, CBC #### [address] [address] Monocytes/100 WBC (Bld) 12.6 % Normal 2.0-13.0 A [facility] ([place] Comment on above: Performed By: #### A DIFF, ANEU, CBC #### [address] [address] Neutrophils/100 WBC (Bld) 76.4 % High 50.0-75.0 [facility] ([place]) Comment on above: Performed By: #### A DIFF, ANEU, CBC #### [address] [address] .GFRon 01-01-2024 GFR >60 Normal [facility] ([place] Comment on above: Result Comment: GFR Population [...] Performed By: #### B MP, GFR #### [address] [address] GFR Non- >60 Normal [facility] ([place]) Comment on above: Result Comment: GFR Population [...] Performed By: #### B MP, GFR #### [address] [address] .NEUABSon 01-01-2024 Neutrophil, Absolute 5.2 10 3/mcL Normal 2.3-8.1 [facility] ([place] Comment on above: Performed By: #### A DIFF, ANEU, CBC #### [address] [address] BMPon 01-01-2024 BUN/Creatinine Ratio 25.4 ratio High 10.0-22.0 [facility] ([place] Comment on above: Performed By: #### B MP, GFR #### [address] [address] Calcium [Mass/Vol] 8.2 mg/dL Low 8.7-10.4 [facility] ([place]) Comment on above: Performed By: #### B MP, GFR #### [address] [address] Chloride [Moles/Vol] 104 mmol/L Normal 98-110 [facility] ([place] Comment on above: Performed By: #### B MP, GFR #### [address] [address] CO2 [Moles/Vol] 28 mmol/L Normal 22-32 [facility] ([place] Comment on above: Performed By: #### B MP, GFR #### [address] [address] Creatinine [Mass/Vol] 0.63 mg/dL Normal 0.60-1.40 [facility] ([place]) Comment on above: Performed By: #### B MP, GFR #### [address] [address] Electrolyte Balance 7.0 mEq/L Normal 4.0-15.0 [facility] ([place] Comment on above: Performed By: #### B MP, GFR #### [address] [address] Glucose [Mass/Vol] 204 mg/dL High 82-115 [facility] ([place] Comment on above: Performed By: #### B MP, GFR #### [address] [address] Potassium [Moles/Vol] 3.6 mmol/L Normal 3.5-5.0 [facility] ([place]) Comment on above: Performed By: #### B MP, GFR #### [address] [address] Sodium [Moles/Vol] 139 mmol/L Normal 136-145 [facility] ([place]) Comment on above: Performed By: #### B MP, GFR #### [address] [address] Urea nitrogen [Mass/Vol] 16.0 mg/dL Normal 8.0-22.0 [facility] ([place]) Comment on above: Performed By: #### B MP, GFR #### [address] [address] CBCon 01-01-2024 Erythrocyte distribution width (RBC) [Ratio] 17.8 % High 11.5-15.5 [facility] ([place] Comment on above: Performed By: #### A DIFF, ANEU, CBC #### [address] [address] Hematocrit (Bld) [Volume fraction] 29.4 % Low 40.0-52.0 [facility] ([place] Comment on above: Performed By: #### A DIFF, ANEU, CBC #### [address] [address] Hgb 9.9 G/dL Low 13.0-17.5 [facility] ([place] Comment on above: Performed By: #### A DIFF, ANEU, CBC #### [address] [address] MCH (RBC) [Entitic mass] 30.4 pg Normal 27.0-33.0 [facility] ([place] Comment on above: Performed By: #### A DIFF, ANEU, CBC #### [address] [address] MCHC 33.6 G/dL Normal 32.0-36.0 [facility] ([place] Comment on above: Performed By: #### A DIFF, ANEU, CBC #### [address] [address] MCV (RBC) [Entitic vol] 90.4 fL Normal 81.0-100.0 A [facility] ([place] Comment on above: Performed By: #### A DIFF, ANEU, CBC #### [address] [address] Platelet 400 10 3/mcL Normal 150-450 [facility] ([place]) Comment on above: Performed By: #### A DIFF, ANEU, CBC #### [address] [address] Platelet mean volume (Bld) [Entitic vol] 7.6 fL Normal 6.4-10.5 [facility] ([place] Comment on above: Performed By: #### A DIFF, ANEU, CBC #### [address] [address] RBC 3.26 10 6/mcL Low 4.50-6.00 [facility] ([place] Comment on above: Performed By: #### A DIFF, ANEU, CBC #### [address] [address] WBC 6.8 10 3/mcL Normal 4.5-10.8 [facility] ([place]) Comment on above: Performed By: #### A DIFF, ANEU, CBC #### [address] [address] MGon 12-31-2023 Magnesium [Mass/Vol] 1.4 mg/dL Low 1.6-2.4 [facility] ([place] Comment on above: Performed By: #### C CASA GARAY, ANEU #### [address] [address] .Auto Diffon 12-30-2023 Basophil, Absolute 0.0 10 3/mcL Normal 0.0-0.3 [facility] ([place] Comment on above: Performed By: #### C CASA GARAY, ANEU #### [address] [address] Basophils/100 WBC (Bld) 0.4 % Normal 0.0-2.5 A [facility] ([place]) Comment on above: Performed By: #### C CASA GARAY, ANEU #### [address] [address] Eosinophil, Absolute 0.2 10 3/mcL Normal 0.0-0.7 [facility] ([place]) Comment on above: Performed By: #### C CASA GARAY, ANEU #### [address] [address] Eosinophils/100 WBC (Bld) 2.2 % Normal 0.0-6.0 [facility] ([place]) Comment on above: Performed By: #### C CASA GARAY, ANEU #### [address] [address] Lymphocyte, Absolute 0.5 10 3/mcL Low 0.9-4.3 [facility] ([place]) Comment on above: Performed By: #### C CASA GARAY, ANEU #### [address] [address] Lymphocytes/100 WBC (Bld) 7.1 % Low 20.0-40.0 [facility] ([place]) Comment on above: Performed By: #### C CASA GARAY, ANEU #### [address] [address] Monocyte, Absolute 0.7 10 3/mcL Normal 0.1-1.4 [facility] ([place] Comment on above: Performed By: #### C CASA GARAY, ANEU #### [address] [address] Monocytes/100 WBC (Bld) 9.3 % Normal 2.0-13.0 A [facility] ([place] Comment on above: Performed By: #### C CASA GARAY ANEU #### [address] [address] Neutrophils/100 WBC (Bld) 81.0 % High 50.0-75.0 [facility] ([place] Comment on above: Performed By: #### C CASA GARAY ANEU #### [address] [address] .GFRon 12-30-2023 GFR >60 Normal [facility] ([place] Comment on above: Result Comment: GFR Population [...] By: #### C CASA GARAY ANEU #### [address] [address] GFR Non- >60 Normal [facility] ([place]) Comment on above: Result Comment: GFR Population [...] By: #### C CASA GARAY ANEU #### [address] [address] .NEUABSon 12-30-2023 Neutrophil, Absolute 5.7 10 3/mcL Normal 2.3-8.1 [facility] ([place]) Comment on above: Performed By: #### C BC, ADIFF, ANEU #### [place] [address] CBCon 12-30-2023 Erythrocyte distribution width (RBC) [Ratio] 18.1 % High 11.5-15.5 [facility] ([place]) Comment on above: Performed By: #### C BC, ADIFF, ANEU, CMP, GFR #### [place] [address] Hematocrit (Bld) [Volume fraction] 30.5 % Low 40.0-52.0 [facility] ([place] Comment on above: Performed By: #### C BC, ADIFF, ANEU, CMP, GFR #### [place] [address] Hgb 10.3 G/dL Low 13.0-17.5 [facility] ([place]) Comment on above: Performed By: #### C BC, ADIFF, ANEU, CMP, GFR #### [place] [address] MCH (RBC) [Entitic mass] 30.7 pg Normal 27.0-33.0 [facility] ([place]) Comment on above: Performed By: #### C BC, ADIFF, ANEU, CMP, GFR #### [place] [address] MCHC 33.7 G/dL Normal 32.0-36.0 [facility] ([place]) Comment on above: Performed By: #### C BC, ADIFF, ANEU, CMP, GFR #### [place] [address] MCV (RBC) [Entitic vol] 91.0 fL Normal 81.0-100.0 A [facility] ([place] Comment on above: Performed By: #### C BC, ADIFF, ANEU, CMP, GFR #### [address] [address] Platelet 414 10 3/mcL Normal 150-450 [facility] ([place]) Comment on above: Performed By: #### C BC, ADIFF, ANEU, CMP, GFR #### [address] [address] Platelet mean volume (Bld) [Entitic vol] 8.0 fL Normal 6.4-10.5 [facility] ([place]) Comment on above: Performed By: #### C BC, ADIFF, ANEU, CMP, GFR #### [address] [address] RBC 3.35 10 6/mcL Low 4.50-6.00 [facility] ([place]) Comment on above: Performed By: #### C BC, ADIFF, ANEU, CMP, GFR #### [address] [address] WBC 7.0 10 3/mcL Normal 4.5-10.8 [facility] ([place] Comment on above: Performed By: #### C BC, ADIFF, ANEU, CMP, GFR #### [address] [address] CMPon 12-30-2023 Albumin Level 1.8 G/dL Low 3.2-4.8 [facility] ([place]) Comment on above: Performed By: #### C BC, ADIFF, ANEU #### [address] [address] Albumin/Globulin [Mass ratio] 0.5 {ratio} Low 0.9-1.6 [facility] ([place] Comment on above: Performed By: #### C BC, ADIFF, ANEU #### [address] [address] ALP [Catalytic activity/Vol] 267 U/L High 38-126 [facility] ([place]) Comment on above: Performed By: #### C BC, ADIFF, ANEU #### [address] [address] ALT [Catalytic activity/Vol] 31 U/L Normal 12-55 [facility] ([place]) Comment on above: Performed By: #### CASA SIN ANEU #### [address] [address] AST [Catalytic activity/Vol] 29 U/L Normal 8-34 [facility] ([place] Comment on above: Performed By: #### CASA SIN ANEU #### [address] [address] Bili Total 1.20 mg/dL Normal 0.20-1.20 [facility] ([place]) Comment on above: Result Comment: Use of this assay is not recommended for patients undergoing treatment with eltrombopag due to the potential for falsely elevated results. Performed By: #### CASA SIN ANEU #### [place] [id number] BUN/Creatinine Ratio 33.3 ratio High 10.0-22.0 [facility] ([place] Comment on above: Performed By: #### CASA SIN ANEU #### [address] [address] Calcium [Mass/Vol] 8.0 mg/dL Low 8.7-10.4 [facility] ([place] Comment on above: Performed By: #### CASA SIN ANEU #### [place] [id number] Chloride [Moles/Vol] 105 mmol/L Normal 98-110 [facility] ([place] Comment on above: Performed By: #### CASA ISN ANEU #### [place] [id number] CO2 [Moles/Vol] 27 mmol/L Normal 22-32 [facility] ([place] Comment on above: Performed By: #### CASA SIN ANEU #### [address] [address] Creatinine [Mass/Vol] 0.66 mg/dL Normal 0.60-1.40 [facility] ([place]) Comment on above: Performed By: #### CASA SIN, NAVIN #### [place] [id number] Electrolyte Balance 4.0 mEq/L Normal 4.0-15.0 [facility] ([place] Comment on above: Performed By: #### CASA SIN ANEU #### [address] [address] Globulin 3.4 G/dL Normal 1.5-3.8 [facility] ([place] Comment on above: Performed By: #### CASA SIN ANEU #### [address] [address] Glucose [Mass/Vol] 127 mg/dL High 82-115 [facility] ([place]) Comment on above: Performed By: #### CASA SIN ANEU #### [address] [address] Potassium [Moles/Vol] 4.3 mmol/L Normal 3.5-5.0 [facility] ([place]) Comment on above: Performed By: #### CASA SIN ANEU #### [address] [address] Sodium [Moles/Vol] 136 mmol/L Normal 136-145 [facility] ([place] Comment on above: Performed By: #### CASA SIN ANEU #### [address] [address] Total Protein 5.2 G/dL Low 5.7-8.2 [facility] ([place]) Comment on above: Result Comment: No te - New Reference Range in effect 20 Performed By: #### CASA SIN ANEU #### [address] [address] Urea nitrogen [Mass/Vol] 22.0 mg/dL Normal 8.0-22.0 [facility] ([place]) Comment on above: Performed By: #### CASA SIN ANEU #### [address] [address] XR CHEST 1 VIEWon 12-30-2023 XR CHEST [...] Date: 12/30/2023 8:01:23 AM Ordering Provider: DIEGO JEREZ [facility] ([place]) Absolute lymphocyte countOrd ered By: Dwayne Marshall on 12-01-2023 Lymphocytes Auto (Unsp spec) [#/Vol] 0.74 10*3/uL 0.83-4.51 [facility] Absolute lymphocyte countOrd ered By: Manisha Ford on 12-01-2023 Lymphocytes Auto (Unsp spec) [#/Vol] 0.83 10*3/uL 0.83-4.51 [facility] Automated lymphocyte count a s percentage of total leukocytesOrdered By: Dwayne Marshall on 12-01-2023 Lymphocytes/100 WBC Auto (Unsp spec) 4.7 % 19-41 [facility] Basophil percentageOrdered B y: Dwayne Marshall on 12-01-2023 Basophil percentage 0 SEEN /hpf 0-5 [facility] Basophils/100 WBC (Bld) 0.3 % 0-1 [facility] Bilirubin [Mass/Vol] 0.60 mg/dL 0.20-1.00 [facility] Comment on above: For patients on eltr ombopag therapy, use of Dimension [place] TBIL is not recommended. Chloride [Moles/Vol] 99 mmol/L 98-107 [facility] Eosinophils/100 WBC (Bld) 0.1 % 0-5 [facility] Glucose [Mass/Vol] 233 mg/dL 74-106 [facility] Comment on above: Glucose result great er than or equal to 200 mg/dLsuggests DIABETES MELLITUS per A.D.A. criteria. Hemoglobin (Bld) [Mass/Vol] 9.8 g/dL 13.0-16.5 [facility] Monocytes/100 WBC (Bld) 6.8 % 0-10 [facility] Neutrophils (Bld) [#/Vol] 13.8 10*3/uL 2.0-7.7 [facility] Neutrophils/100 WBC (Bld) 87.6 % 47-70 [facility] Potassium [Moles/Vol] 4.2 mmol/L 3.5-5.1 [facility] Protein [Mass/Vol] 7.0 g/dL 6.4-8.2 [facility] WBC (Bld) [#/Vol] 15.8 10*3/uL 4.4-11.0 [facility] Sodium [Moles/Vol] 133 mmol/L 136-145 [facility] Basophil percentageOrdered B y: Jillianector Logan on 12-01-2023 Basophils/100 WBC (Bld) 0.4 % 0-1 [facility] Chloride [Moles/Vol] 97 mmol/L 98-107 [facility] Eosinophils/100 WBC (Bld) 0.5 % 0-5 [facility] Glucose [Mass/Vol] 211 mg/dL 74-106 [facility] Comment on above: Glucose result great er than or equal to 200 mg/dLsuggests DIABETES MELLITUS per A.D.A. criteria. Hemoglobin (Bld) [Mass/Vol] 10.3 g/dL 13.0-16.5 [facility] Monocytes/100 WBC (Bld) 8.1 % 0-10 [facility] Neutrophils (Bld) [#/Vol] 15.0 10*3/uL 2.0-7.7 [facility] Neutrophils/100 WBC (Bld) 85.6 % 47-70 [facility] Potassium [Moles/Vol] 4.5 mmol/L 3.5-5.1 [facility] WBC (Bld) [#/Vol] 17.5 10*3/uL 4.4-11.0 [facility] Bilirubin Test strip Ql (U)O rdered By: Dwayne Marshall on 12-01-2023 Bilirubin Ql (U) Negative Negative [facility] Blood manual differential co mment interpretation (narrative result)Ordered By: Manisha Ford on 12-01-2023 Manual differential comment Jordy (Bld) [Interp] SCANNED [facility] Determination of erythrocyte mean corpuscular volume (MCV)Ordered By: Dwayne Marshall on 12-01-2023 MCV (RBC) [Entitic vol] 87.2 fL 80-94 [facility] Determination of erythrocyte mean corpuscular volume (MCV)Ordered By: Manisha Ford on 12-01-2023 MCV (RBC) [Entitic vol] 86.4 fL 80-94 [facility] Erythrocyte distribution wid th ratioOrdered By: Dwayne Marshall on 12-01-2023 Erythrocyte distribution width (RBC) [Ratio] 15.9 % 11.6-14.6 [facility] Erythrocyte distribution wid th ratioOrdered By: Manisha Ford on 12-01-2023 Erythrocyte distribution width (RBC) [Ratio] 16.1 % 11.6-14.6 [facility] Erythrocyte distribution wid th standard deviationOrdered By: Dwayne Marshall on 12-01-2023 Erythrocyte distribution width (RBC) [Entitic vol] 50.8 fL 35.1-43.9 [facility] Erythrocyte distribution wid th standard deviationOrdered By: Manisha Ford on 12-01-2023 Erythrocyte distribution width (RBC) [Entitic vol] 50.4 fL 35.1-43.9 [facility] Hematocrit Auto (Bld) [Volum e fraction]Ordered By: Dwayne Marshall on 12-01-2023 Hematocrit (Bld) [Volume fraction] 30.6 % [facility] Hematocrit Auto (Bld) [Volum e fraction]Ordered By: Manisha Ford on 12-01-2023 Hematocrit (Bld) [Volume fraction] 33.0 % [facility] Immature granulocytes/100 WB C Auto (Bld)Ordered By: Dwayne Marshall on 12-01-2023 Immature granulocytes/100 WBC (Bld) 0.500 % 0.0-0.9 [facility] Comment on above: IG% - Immature Granu locytes (promyelocytes, myelocytes and metamyelocytes) > 1% indicates that a LEFT SHIFT is Present. Immature granulocytes/100 WB C Auto (Bld)Ordered By: Manisha Ford on 12-01-2023 Immature granulocytes/100 WBC (Bld) 0.700 % 0.0-0.9 [facility] Comment on above: IG% - Immature Granu locytes (promyelocytes, myelocytes and metamyelocytes) > 1% indicates that a LEFT SHIFT is Present. Ketones Test strip Ql (U)Ord ered By: Dwayne Marshall on 12-01-2023 Ketones Ql (U) Negative Negative [facility] Laboratory - Chemistry and C hemistry - challengeOrdered By: Dwayne Marshall on 12-01-2023 Albumin/Globulin [Mass ratio] 0.5 {ratio} 0.9-2.4 [facility] ALP [Catalytic activity/Vol] 101 U/L 45-117 [facility] ALT [Catalytic activity/Vol] 295 U/L 16-61 [facility] CO2 [Moles/Vol] 29.0 mmol/L 21.0-32.0 [facility] Globulin (S) [Mass/Vol] 4.6 g/dL 2.2-4.2 [facility] Lipase [Catalytic activity/Vol] 21 U/L 13-75 [facility] Comment on above: Please note:LIPASE r evised reference range effective 22. New Lipase methodology. Expected to produce lower values than the previous assay method. NEW Reference Range: 13 - 75 U/L Urea nitrogen/Creatinine [Mass ratio] 36.9 mg/mg 10-20 [facility] - Chemistry and C hemistry - challengeOrdered By: Manisha Ford on 12-01-2023 CO2 [Moles/Vol] 28.0 mmol/L 21.0-32.0 [facility] Urea nitrogen/Creatinine [Mass ratio] 37.2 mg/mg 10-20 [facility] - CoagulationOrde red By: Dwayne Marshall on 12-01-2023 INR Coag (Bld) [Relative time] 2.3 {INR} [facility] PT Coag (PPP) [Time] 25.0 s 11.7-14.9 [facility] Laboratory - Hematology and Cell countsOrdered By: Dwayne Marshall on 12-01-2023 MCH (RBC) [Entitic mass] 27.9 pg 27.0-32.0 [facility] MCHC (RBC) [Mass/Vol] 32.0 g/dL - [facility] Nucleated RBC/100 WBC (Bld) [Ratio] 0.1 % 0-5 [facility] Platelet mean volume (Bld) [Entitic vol] 10.5 fL 6.2-12.0 [facility] Platelets (Bld) [#/Vol] 350 10*3/uL 150-450 [facility] - Hematology and Cell countsOrdered By: Manisha Ford on 12-01-2023 MCH (RBC) [Entitic mass] 27.0 pg 27.0-32.0 [facility] MCHC (RBC) [Mass/Vol] 31.2 g/dL - [facility] Nucleated RBC/100 WBC (Bld) [Ratio] 0 % 0-5 [facility] Platelet mean volume (Bld) [Entitic vol] 11.0 fL 6.2-12.0 [facility] Platelets (Bld) [#/Vol] 363 10*3/uL 150-450 [facility] Mucus LM Ql (Urine sed)Order ed By: Dwayne Marshall on 12-01-2023 Mucus Ql (Urine sed) 0 SEEN /hpf [facility] Nitrite Test strip Ql (U)Ord ered By: Dwayne Marshall on 12-01-2023 Nitrite Ql (U) Negative Negative [facility] No Panel InformationOrdered By: Dwayne Marshall on 12-01-2023 Urine RBC 0 SEEN /hpf 0-5 [facility] Estimated Creatinine Clearance Calc 47.55 ml/min [facility] Estimated GFR (MDRD) Amer 71 mL/min >60 [facility] Comment on above: GFR Calc Estimated GFR (MDRD) Non-Af Amer 59 mL/min >60 [facility] Comment on above: Non- GFR Calc No Panel InformationOrdered By: Manisha Ford on 12-01-2023 Estimated GFR (MDRD) Amer 72 mL/min >60 [facility] Comment on above: GFR Calc Protein Test strip Ql (U)Ord ered By: Dwayne Marshall on 12-01-2023 Protein Ql (U) 15 mg/dl Negative [facility] RBC Auto (Bld) [#/Vol]Ordere d By: Dwayne Marshall on 12-01-2023 RBC (Bld) [#/Vol] 3.51 10*6/uL 4.6-6.2 [facility] RBC Auto (Bld) [#/Vol]Ordere d By: Manisha Ford on 12-01-2023 RBC (Bld) [#/Vol] 3.82 10*6/uL 4.6-6.2 [facility] Serum or plasma calcium isael urement (mass/volume)Ordered By: Dwayne Marshall on 12-01-2023 Calcium [Mass/Vol] 9.1 mg/dL 8.5-10.1 [facility] Serum or plasma calcium isael urement (mass/volume)Ordered By: Manisha Ford on 12-01-2023 Calcium [Mass/Vol] 9.5 mg/dL 8.5-10.1 [facility] Serum or plasma creatinine m easurement (mass/volume)Ordered By: Dwayne Marshall on 12-01-2023 Creatinine [Mass/Vol] 1.30 mg/dL 0.70-1.30 [facility] Comment on above: The validity of the calculated GFR & GFRAA in patients over 70 years has not been determined. Clinical correlation is essential. Serum or plasma creatinine m easurement (mass/volume)Ordered By: Manisha Ford on 12-01-2023 Creatinine [Mass/Vol] 1.29 mg/dL 0.70-1.30 [facility] Comment on above: The validity of the calculated GFR & GFRAA in patients over 70 years has not been determined. Clinical correlation is essential. Serum or plasma urea nitroge n measurement (mass/volume)Ordered By: Dwayne Marshall on 12-01-2023 Urea nitrogen [Mass/Vol] 48 mg/dL 7-18 [facility] Squamous epithelial cells de tection in urine sediment by light microscopyOrdered By: Dwayne Marshall on 12-01-2023 Epithelial cells.squamous LM Ql (Urine sed) 0 SEEN /hpf 0-5 [facility] Thin prep Papanicolaou smear with manual screeningOrdered By: Dwayne Marshall on 12-01-2023 Thin prep Papanicolaou smear with manual screening 2.4 g/dL 3.2-5.0 [facility] Thin prep Papanicolaou smear with manual screening 268 U/L 15-37 [facility] Thin prep Papanicolaou smear with manual screening 5 5-15 [facility] Thin prep Papanicolaou smear with manual screeningOrdered By: Manisha Ford on 12-01-2023 Thin prep Papanicolaou smear with manual screening 8 5-15 [facility] Urine blood detectionOrdered By: Dwayne Marshall on 12-01-2023 RBC Ql (U) 10 /ul Negative [facility] Urine clarityOrdered By: Amy Marshall on 12-01-2023 Clarity (U) Clear Clear [facility] Urine color determinationOrd ered By: Dwayne Marshall on 12-01-2023 Color (U) Yellow Yellow [facility] Urine glucose detectionOrder ed By: Dwayne Marshall on 12-01-2023 Glucose Ql (U) Normal mg/dl Normal [facility] Urine leukocyte esterase det ection by dipstickOrdered By: Dwayne Marshall on 12-01-2023 Leukocyte esterase Test strip Ql (U) Negative Negative [facility] Urine pHOrdered By: Dwayne vora on 12-01-2023 pH (U) 5.0 [pH] 5.0 - 8.0 [facility] Urine sediment bacteria coun t by microscopy (number/high power field)Ordered By: Dwayne Marshall on 12-01-2023 Bacteria LM.HPF (Urine sed) [#/Area] 0 /[HPF] None Seen [facility] Urine specific gravity measu rementOrdered By: Dwayne Marshall on 12-01-2023 Specific gravity (U) [Rel density] 1.010 1.002-1.030 [facility] Urine urobilinogen measureme ntOrdered By: Dwayne Marshall on 12-01-2023 Urobilinogen Ql (U) Normal mg/dl Normal [facility] Absolute lymphocyte countOrd ered By: Manisha Ford on 11-29-2023 Lymphocytes Auto (Unsp spec) [#/Vol] 0.86 10*3/uL 0.83-4.51 [facility] Automated lymphocyte count a s percentage of total leukocytesOrdered By: Jillianector Logan on 11-29-2023 Lymphocytes/100 WBC Auto (Unsp spec) 6.7 % 19-41 [facility] Basophil percentageOrdered B y: Manisha Ford on 11-29-2023 Basophils/100 WBC (Bld) 0.2 % 0-1 [facility] Bilirubin [Mass/Vol] 0.70 mg/dL 0.20-1.00 [facility] Comment on above: For patients on eltr ombopag therapy, use of Dimension [place] TBIL is not recommended. Chloride [Moles/Vol] 99 mmol/L 98-107 [facility] Eosinophils/100 WBC (Bld) 0.2 % 0-5 [facility] Glucose [Mass/Vol] 203 mg/dL 74-106 [facility] Comment on above: Glucose result great er than or equal to 200 mg/dLsuggests DIABETES MELLITUS per A.D.A. criteria. Hemoglobin (Bld) [Mass/Vol] 10.8 g/dL 13.0-16.5 [facility] Monocytes/100 WBC (Bld) 7.9 % 0-10 [facility] Neutrophils (Bld) [#/Vol] 10.9 10*3/uL 2.0-7.7 [facility] Neutrophils/100 WBC (Bld) 84.6 % 47-70 [facility] Potassium [Moles/Vol] 4.4 mmol/L 3.5-5.1 [facility] Protein [Mass/Vol] 7.5 g/dL 6.4-8.2 [facility] Sodium [Moles/Vol] 132 mmol/L 136-145 [facility] WBC (Bld) [#/Vol] 12.9 10*3/uL 4.4-11.0 [facility] Determination of erythrocyte mean corpuscular volume (MCV)Ordered By: Manisha Ford on 11-29-2023 MCV (RBC) [Entitic vol] 86.7 fL 80-94 [facility] Erythrocyte distribution wid th ratioOrdered By: [facility] on 11-29-2023 Erythrocyte distribution width (RBC) [Ratio] 15.6 % 11.6-14.6 [facility] Erythrocyte distribution wid th standard deviationOrdered By: [facility] on 11-29-2023 Erythrocyte distribution width (RBC) [Entitic vol] 48.9 fL 35.1-43.9 [facility] Hematocrit Auto (Bld) [Volum e fraction]Ordered By: [facility] on 11-29-2023 Hematocrit (Bld) [Volume fraction] 33.8 % 40-54 [facility] Immature granulocytes/100 WB C Auto (Bld)Ordered By: [facility] on 11-29-2023 Immature granulocytes/100 WBC (Bld) 0.400 % 0.0-0.9 [facility] Comment on above: IG% - Immature Granu locytes (promyelocytes, myelocytes and metamyelocytes) > 1% indicates that a LEFT SHIFT is Present. Laboratory - Chemistry and C hemistry - challengeOrdered By: [facility]-29-2023 Albumin/Globulin [Mass ratio] 0.7 {ratio} 0.9-2.4 [facility] ALP [Catalytic activity/Vol] 101 U/L 45-117 [facility] ALT [Catalytic activity/Vol] 21 U/L 16-61 [facility] CO2 [Moles/Vol] 28.0 mmol/L 21.0-32.0 [facility] Globulin (S) [Mass/Vol] 4.4 g/dL 2.2-4.2 [facility] Urea nitrogen/Creatinine [Mass ratio] 20.8 mg/mg 10-20 [facility] Laboratory - Hematology and Cell countsOrdered By: [facility] on 11-29-2023 MCH (RBC) [Entitic mass] 27.7 pg 27.0-32.0 [facility] MCHC (RBC) [Mass/Vol] 32.0 g/dL 32-36 [facility] Nucleated RBC/100 WBC (Bld) [Ratio] 0 % 0-5 [facility] Platelet mean volume (Bld) [Entitic vol] 10.6 fL 6.2-12.0 [facility] Platelets (Bld) [#/Vol] 358 10*3/uL 150-450 [facility] No Panel InformationOrdered By: Manisha Ford on 11-29-2023 Estimated GFR (MDRD) Amer 130 mL/min >60 [facility] Comment on above: GFR Calc Estimated GFR (MDRD) Non-Af Amer 107 mL/min >60 [facility] Comment on above: Non- GFR Calc RBC Auto (Bld) [#/Vol]Ordere d By: Manisha Ford on 11-29-2023 RBC (Bld) [#/Vol] 3.90 10*6/uL 4.6-6.2 [facility] Serum or plasma calcium isael urement (mass/volume)Ordered By: Manisha Ford on 11-29-2023 Calcium [Mass/Vol] 9.2 mg/dL 8.5-10.1 [facility] Serum or plasma creatinine m easurement (mass/volume)Ordered By: Manisha Ford on 11-29-2023 Creatinine [Mass/Vol] 0.77 mg/dL 0.70-1.30 [facility] Comment on above: The validity of the calculated GFR & GFRAA in patients over 70 years has not been determined. Clinical correlation is essential. Serum or plasma urea nitroge n measurement (mass/volume)Ordered By: Manisha Ford on 11-29-2023 Urea nitrogen [Mass/Vol] 16 mg/dL 7-18 [facility] Thin prep Papanicolaou smear with manual screeningOrdered By: Manisha Ford on 11-29-2023 Thin prep Papanicolaou smear with manual screening 3.1 g/dL 3.2-5.0 [facility] Thin prep Papanicolaou smear with manual screening 18 U/L 15-37 [facility] Thin prep Papanicolaou smear with manual screening 5 5-15 [facility] CBC,PLATELETSon 11-28-2023 Erythrocyte distribution width (RBC) [Ratio] 15.6 % High 10.9 - 14.3 % [facility] Hematocrit (Bld) [Volume fraction] 30.8 % Low 39.6 - 48.8 % [facility] Hemoglobin (Bld) [Mass/Vol] 9.8 g/dL Low 13.4 - 16.8 g/dL [facility] Interpretation and review of laboratory results Abnormal [facility] MCH (RBC) [Entitic mass] 27.7 pg 26.1 - 33.3 pg [facility] MCHC (RBC) [Mass/Vol] 31.8 g/dL Low 31.9 - 36.5 g/dL [facility] MCV (RBC) [Entitic vol] 87.0 fL 79.0 - 94.5 fL [facility] Platelet mean volume (Bld) [Entitic vol] 10.1 fL 8.7 - 12.3 fL [facility] Platelets (Bld) [#/Vol] 293 10*3/uL 146 - 337 K/uL [facility] RBC (Bld) [#/Vol] 3.54 10*6/uL Low [facility] WBC (Bld) [#/Vol] 8.74 10*3/uL 3.73 - 10.10 K/uL [facility] Hematocrit (Bld) [Volume fraction] 30.8 % Low 39.6-48.8 [facility] Comment on above: Performed By: #### T YPEC #### [facility] (DEFAULT) [address] [address] Hemoglobin (Bld) [Mass/Vol] 9.8 g/dL Low 13.4-16.8 [facility] Comment on above: Performed By: #### T YPEC #### [facility] (DEFAULT) [address] [place] [address] MCV (RBC) [Entitic vol] 87.0 fL Normal 79.0-94.5 [facility] Comment on above: Performed By: #### T YPEC #### [facility] (DEFAULT) [address] [place] [address] Mean Cell Hgb 27.7 pg Normal 26.1-33.3 [facility] Comment on above: Performed By: #### T YPEC #### [facility] (DEFAULT) [address] [address] Mean Cell Hgb Conc 31.8 g/dL Low 31.9-36.5 [facility] Comment on above: Performed By: #### T YPEC #### [facility] (DEFAULT) [address] [address] Platelet mean volume (Bld) [Entitic vol] 10.1 fL Normal 8.7-12.3 [facility] Comment on above: Performed By: #### T YPEC #### [facility] (DEFAULT) [address] [address] Platelets (Bld) [#/Vol] 293 10*3/uL Normal 146-337 [facility] Comment on above: Performed By: #### T YPEC #### [facility] (DEFAULT) [address] [address] RBC (Bld) [#/Vol] 3.54 10*6/uL Low 4.38-5.83 [facility] Comment on above: Performed By: #### T YPEC #### [facility] (DEFAULT) [address] [address] RBC Distribution 15.6 % High 10.9-14.3 [facility] Comment on above: Performed By: #### T YPEC #### [facility] (DEFAULT) [address] [address] WBC (Bld) [#/Vol] 8.74 10*3/uL Normal 3.73-10.10 [facility] Comment on above: Performed By: #### T YPEC #### [facility] (DEFAULT) [address] [address] CHEM 7 (LYTES,BUN,CREA,GLUC) on 11-28-2023 Anion gap [Moles/Vol] 12 mmol/L 7 - 17 mmol/L [facility] Chloride [Moles/Vol] 102 mmol/L 98 - 10 8 mmol/L [facility] CO2 [Moles/Vol] 27 mmol/L 21 - 31 mmol/L [facility] Creatinine [Mass/Vol] 0.83 mg/dL 0.70 - 1.30 mg/dL [facility] eGFR, CKD-EPI, Male - PINF [facility] Glucose [Mass/Vol] 74 mg/dL 70 - 99 mg/dL [facility] Interpretation and review of laboratory results Abnormal [facility] Osmolality Calc [Osmolality] 287 [facility] Potassium [Moles/Vol] 3.4 mmol/L Low 3.5 - 5.0 mmol/L [facility] Sodium [Moles/Vol] 138 mmol/L 135 - 145 mmol/L [facility] Urea nitrogen [Mass/Vol] 16 mg/dL 7 - 25 mg/dL [facility] Urea nitrogen/Creatinine [Mass ratio] 19 mg/mg [facility] Anion gap [Moles/Vol] 12 mmol/L Normal 7-17 [facility] Comment on above: Performed By: #### P TT #### [facility] (DEFAULT) [address] [place] [address] Chloride [Moles/Vol] 102 mmol/L Normal 98-108 [facility] Comment on above: Performed By: #### P TT #### [facility] (DEFAULT) [address] [place] [address] CO2 [Moles/Vol] 27 mmol/L Normal 21-31 [facility] Comment on above: Performed By: #### P TT #### [facility] (DEFAULT) [address] [place] [address] Creatinine [Mass/Vol] 0.83 mg/dL Normal 0.70-1.30 [facility] Comment on above: Performed By: #### P TT #### [facility] (DEFAULT) [address] [place] [address] eGFR, CKD-EPI, Male > Normal >=60 [facility] Comment on above: Result Comment: Repo rted eGFR is based on the CKD-EPI 2020 equation using creatinine, age, and sex. Performed By: #### P TT #### [facility] (DEFAULT) [address] [place] [address] Glucose [Mass/Vol] 74 mg/dL Normal 70-99 [facility] Comment on above: Performed By: #### P TT #### [facility] (DEFAULT) [address] [place] [address] Osmolality [Osmolality] 287 mosm/kg Normal 278-305 [facility] Comment on above: Performed By: #### P TT #### [facility] (DEFAULT) [address] [place] [address] Potassium [Moles/Vol] 3.4 mmol/L Low 3.5-5.0 [facility] Comment on above: Performed By: #### P TT #### [facility] (DEFAULT) [address] [place] [address] Sodium [Moles/Vol] 138 mmol/L Normal 135-145 [facility] Comment on above: Performed By: #### P TT #### [facility] (DEFAULT) [address] [place] [address] Urea nitrogen [Mass/Vol] 16 mg/dL Normal 7-25 [facility] Comment on above: Performed By: #### P TT #### [facility] (DEFAULT) [address] [place] [address] Urea nitrogen/Creatinine [Mass ratio] 19 mg/mg Normal [facility] Comment on above: Performed By: #### P TT #### [facility] (DEFAULT) [address] [place] [address] CONTINUOUS CARDIAC MONITORIN G STRIPon 11-28-2023 [facility] Cardiac echo study Procedure on 11-28-2023 Body surface area Derived from formula 1.65 m2 [facility] BP EF 63 % [facility] EF SP 2CH 71 [facility] EF SP 4CH 54 [facility] FS 33 % 28 - 44 % [facility] IV[facility] 0.95 [facility] LV EDV BP 94 mL [facility] LV EDV SP 2CH 100 mL [facility] LV EDV SP 4CH 89 mL [facility] LV ESV BP 35 mL [facility] LV ESV SP 2CH 29 mL [facility] LV ESV SP 4CH 41 mL [facility] LV mass 160.00 g [facility] LV Mass Index 97.0 g/m2 [facility] LV RWT 0.43 [facility] LV stroke volume BP (ml) 59 mL [facility] LV stroke volume index BP 35.76 mL/m2 [facility] LVIDD 4.70 cm [facility] LVIDS 3.13 cm [facility] Mr max jesse 5.46 m/s [facility] MR VTI 185.92 cm [facility] LV BIPLANE SYSTOLIC VOLUME INDEX 21.21 mL/m2 [facility] LV BP DIASTOLIC VOLUME INDEX 56.97 [facility] PEAK GRADIENT 119.25 mmHg [facility] PW 1.01 cm [facility] UMOUT [facility] Radiology Study observation (narrative) [facility] ECHOCARDIOGRAMon 11-28-2023 Echocardiography Limited study to [...] original result were not included. 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 Contrast indication: evaluation of left ventricle apex. Imaging system used: [employer]. Indications Indications for study: other - c/f cardiac embolic source. Exam Details Performed Procedure Technologist Supporting Staff Performing Physician ECHOCARDIOGRAM LIMITED/FOLLOWUP W/O 3D W/CONTRAST Shazia Reid RDCS Appointment Date/Status Modality Department 11/28/2023 Arrived ECHO TESTING, [facility] ECHOCARDIOGRAPHY ROSS Begin Exam End Exam 11/28/2023 7:26 AM 11/28/2023 9:00 AM Signed at 1113 EDT External Results Report There is an external results report available. Patient Release Status: This result is viewable by the patient in Tablelist Inchart. ECHOCARDIOGRAM: Patient Communication Released Not seen ABN Associated with this Order There is no ABN associated with this order. Normal [facility] GLUCOSE POCon 11-28-2023 Glucose [Mass/Vol] 174 mg/dL High 70 - 99 mg/dL [facility] Interpretation and review of laboratory results Abnormal [facility] POC Sample Type CAPBL [facility] Glucose [Mass/Vol] 73 mg/dL 70 - 99 mg/dL [facility] POC Sample Type CAPBL [facility] IONIZED CALCIUM, WHOLE BLOOD Ordered By: Anna Marsh on 11-28-2023 Calcium.ionized (Bld) [Moles/Vol] 4.47 mg/dL Low 4.60 - 5.30 mg/dL [facility] Interpretation and review of laboratory results Abnormal [facility] IONIZED CALCIUM, WHOLE BLOOD on 11-28-2023 ICA 4.47 mg/dL Low 4.60-5.30 [facility] Comment on above: Performed By: #### U [id number] #### [facility] (DEFAULT) [address] [place] [address] MAGNESIUMon 11-28-2023 Interpretation and review of laboratory results Normal [facility] Magnesium [Mass/Vol] 1.7 mg/dL 1.6 - 2 .6 mg/dL [facility] Magnesium [Mass/Vol] 1.7 mg/dL Normal 1.6-2.6 [facility] Comment on above: Performed By: #### P TT #### [facility] (DEFAULT) [address] [place] [address] No Panel Informationon 11-27 [facility] CBC,PLATELETSon 11-27-2023 Erythrocyte distribution width (RBC) [Ratio] 15.7 % High 10.9 - 14.3 % [facility] Hematocrit (Bld) [Volume fraction] 30.1 % Low 39.6 - 48.8 % [facility] Hemoglobin (Bld) [Mass/Vol] 9.6 g/dL Low 13.4 - 16.8 g/dL [facility] Interpretation and review of laboratory results Abnormal [facility] MCH (RBC) [Entitic mass] 27.6 pg 26.1 - 33.3 pg [facility] MCHC (RBC) [Mass/Vol] 31.9 g/dL 31.9 - 36.5 g/dL [facility] MCV (RBC) [Entitic vol] 86.5 fL 79.0 - 94.5 fL [facility] Platelet mean volume (Bld) [Entitic vol] 10.6 fL 8.7 - 12.3 fL [facility] Platelets (Bld) [#/Vol] 326 10*3/uL 146 - 337 K/uL [facility] RBC (Bld) [#/Vol] 3.48 10*6/uL Low [facility] WBC (Bld) [#/Vol] 8.65 10*3/uL 3.73 - 10.10 K/uL [facility] Hematocrit (Bld) [Volume fraction] 30.1 % Low 39.6-48.8 [facility] Comment on above: Performed By: #### U [id number] #### [facility] (DEFAULT) [address] [address] Hemoglobin (Bld) [Mass/Vol] 9.6 g/dL Low 13.4-16.8 [facility] Comment on above: Performed By: #### U [id number] #### [facility] (DEFAULT) [address] [address] MCV (RBC) [Entitic vol] 86.5 fL Normal 79.0-94.5 [facility] Comment on above: Result Comment: Resu lts inconsistent with previous results Performed By: #### U [id number] #### [facility] (DEFAULT) [address] [address] Mean Cell Hgb 27.6 pg Normal 26.1-33.3 [facility] Comment on above: Performed By: #### U [id number] #### [facility] (DEFAULT) [address] [address] Mean Cell Hgb Conc 31.9 g/dL Normal 31.9-36.5 [facility] Comment on above: Performed By: #### U [id number] #### [facility] (DEFAULT) [address] [address] Platelet mean volume (Bld) [Entitic vol] 10.6 fL Normal 8.7-12.3 [facility] Comment on above: Performed By: #### U [id number] #### [facility] (DEFAULT) [address] [place] [address] Platelets (Bld) [#/Vol] 326 10*3/uL Normal 146-337 [facility] Comment on above: Performed By: #### U [id number] #### [facility] (DEFAULT) [address] [place] [address] RBC (Bld) [#/Vol] 3.48 10*6/uL Low 4.38-5.83 [facility] Comment on above: Performed By: #### U [id number] #### [facility] (DEFAULT) [address] [place] [address] RBC Distribution 15.7 % High 10.9-14.3 [facility] Comment on above: Performed By: #### U [id number] #### [facility] (DEFAULT) [address] [place] [address] WBC (Bld) [#/Vol] 8.65 10*3/uL Normal 3.73-10.10 [facility] Comment on above: Performed By: #### U [id number] #### [facility] (DEFAULT) [address] [place] [address] CHEM 7 (LYTES,BUN,CREA,GLUC) on 11-27-2023 Anion gap [Moles/Vol] 12 mmol/L 7 - 17 mmol/L [facility] Chloride [Moles/Vol] 101 mmol/L 98 - 10 8 mmol/L [facility] CO2 [Moles/Vol] 27 mmol/L 21 - 31 mmol/L [facility] Creatinine [Mass/Vol] 0.90 mg/dL 0.70 - 1.30 mg/dL [facility] eGFR, CKD-EPI, Male - PINF [facility] Glucose [Mass/Vol] 160 mg/dL High 70 - 99 mg/dL [facility] Interpretation and review of laboratory results Abnormal [facility] Osmolality Calc [Osmolality] 290 [facility] Potassium [Moles/Vol] 3.5 mmol/L 3.5 - 5.0 mmol/L [facility] Sodium [Moles/Vol] 136 mmol/L 135 - 145 mmol/L [facility] Urea nitrogen [Mass/Vol] 19 mg/dL 7 - 25 mg/dL [facility] Urea nitrogen/Creatinine [Mass ratio] 21 mg/mg [facility] Anion gap [Moles/Vol] 12 mmol/L Normal 7-17 [facility] Comment on above: Performed By: #### YULISA GOULD7 ####[facility] (DEFAULT)[address] [place] [address] Chloride [Moles/Vol] 101 mmol/L Normal 98-108 [facility] Comment on above: Performed By: #### BAILEY GOULD ####[facility] (DEFAULT)[address] [place] [address] CO2 [Moles/Vol] 27 mmol/L Normal 21-31 [facility] Comment on above: Performed By: #### YULISA GOULD7 ####[facility] (DEFAULT)[address] [place] [address] Creatinine [Mass/Vol] 0.90 mg/dL Normal 0.70-1.30 [facility] Comment on above: Performed By: #### YULISA GOULD7 ####[facility] (DEFAULT)[address] [place] [address] eGFR, CKD-EPI, Male > Normal >=60 [facility] Comment on above: Result Comment: Repo rted eGFR is based on the CKD-EPI 2020 equation using creatinine, age, and sex. Performed By: #### YULISA GOULD7 ####[facility] (DEFAULT)[address] [place] [address] Glucose [Mass/Vol] 160 mg/dL High 70-99 [facility] Comment on above: Performed By: #### YULISA GOULD7 ####[facility] (DEFAULT)[address] [place] [address] Osmolality [Osmolality] 290 mosm/kg Normal 278-305 [facility] Comment on above: Performed By: #### YULISA GOULD7 ####[facility] (DEFAULT)[address] [place] [address] Potassium [Moles/Vol] 3.5 mmol/L Normal 3.5-5.0 [facility] Comment on above: Performed By: #### YULISA GOULD7 ####[facility] (DEFAULT)[address] [facility] [place] [address] Sodium [Moles/Vol] 136 mmol/L Normal 135-145 [facility] Comment on above: Performed By: #### BAILEY GOULD ####[facility] (DEFAULT)[address] [facility] [address] Urea nitrogen [Mass/Vol] 19 mg/dL Normal 7-25 [facility] Comment on above: Performed By: #### Bonifacio ARIAS CHM7 ####[facility] (DEFAULT)[address] [facility] [place] [address] Urea nitrogen/Creatinine [Mass ratio] 21 mg/mg Normal [facility] Comment on above: Performed By: #### YULISA GOULD7 ####[facility] (DEFAULT)[address] [place] [address] GLUCOSE POCon 11-27-2023 Glucose [Mass/Vol] 136 mg/dL High 70 - 99 mg/dL [facility] Interpretation and review of laboratory results Abnormal [facility] POC Sample Type [facility] Glucose [Mass/Vol] 114 mg/dL High 70 - 99 mg/dL [facility] Interpretation and review of laboratory results Abnormal [facility] POC Sample Type CAPBL [facility] Glucose [Mass/Vol] 113 mg/dL High 70 - 99 mg/dL [facility] Interpretation and review of laboratory results Abnormal [facility] POC Sample Type [facility] Glucose [Mass/Vol] 113 mg/dL High 70 - 99 mg/dL [facility] Interpretation and review of laboratory results Abnormal [facility] POC Sample Type CAPBL [facility] IONIZED CALCIUM, WHOLE BLOOD on 11-27-2023 Calcium.ionized (Bld) [Moles/Vol] 4.52 mg/dL Low 4.60 - 5.30 mg/dL [facility] Interpretation and review of laboratory results Abnormal [facility] ICA 4.52 mg/dL Low 4.60-5.30 [facility] Comment on above: Performed By: #### YULISA GOULD7 #### [facility] (DEFAULT) [address] [place] [address] MAGNESIUMon 11-27-2023 Interpretation and review of laboratory results Normal [facility] Magnesium [Mass/Vol] 1.9 mg/dL 1.6 - 2 .6 mg/dL [facility] Magnesium [Mass/Vol] 1.9 mg/dL Normal 1.6-2.6 [facility] Comment on above: Performed By: #### YULISA GOULD7 ####[facility] (DEFAULT)[address] [place] [address] No Panel Informationon 11-26 [facility] CBC,PLATELETSon 11-26-2023 Erythrocyte distribution width (RBC) [Ratio] 15.5 % High 10.9 - 14.3 % [facility] Hematocrit (Bld) [Volume fraction] 33.6 % Low 39.6 - 48.8 % [facility] Hemoglobin (Bld) [Mass/Vol] 10.2 g/dL Low 13.4 - 16.8 g/dL [facility] Interpretation and review of laboratory results Abnormal [facility] MCH (RBC) [Entitic mass] 27.9 pg 26.1 - 33.3 pg [facility] MCHC (RBC) [Mass/Vol] 30.4 g/dL Low 31.9 - 36.5 g/dL [facility] MCV (RBC) [Entitic vol] 92.1 fL 79.0 - 94.5 fL [facility] Platelet mean volume (Bld) [Entitic vol] 10.6 fL 8.7 - 12.3 fL [facility] Platelets (Bld) [#/Vol] 279 10*3/uL 146 - 337 K/uL [facility] RBC (Bld) [#/Vol] 3.65 10*6/uL Low [facility] WBC (Bld) [#/Vol] 8.25 10*3/uL 3.73 - 10.10 K/uL [facility] Hematocrit (Bld) [Volume fraction] 33.6 % Low 39.6-48.8 [facility] Comment on above: Performed By: #### L [id number] #### [facility] (DEFAULT) [address] [address] Hemoglobin (Bld) [Mass/Vol] 10.2 g/dL Low 13.4-16.8 [facility] Comment on above: Performed By: #### L [id number] #### [facility] (DEFAULT) [address] [address] MCV (RBC) [Entitic vol] 92.1 fL Normal 79.0-94.5 O [facility] Comment on above: Performed By: #### L [id number] #### [facility] (DEFAULT) [address] [address] Mean Cell Hgb 27.9 pg Normal 26.1-33.3 [facility] Comment on above: Performed By: #### L [id number] #### [facility] (DEFAULT) [address] [place] [address] Mean Cell Hgb Conc 30.4 g/dL Low 31.9-36.5 [facility] Comment on above: Performed By: #### L [id number] #### [facility] (DEFAULT) [address] [place] [address] Platelet mean volume (Bld) [Entitic vol] 10.6 fL Normal 8.7-12.3 [facility] Comment on above: Performed By: #### L [id number] #### [facility] (DEFAULT) [address] [place] [address] Platelets (Bld) [#/Vol] 279 10*3/uL Normal 146-337 [facility] Comment on above: Performed By: #### L [id number] #### [facility] (DEFAULT) [address] [place] [address] RBC (Bld) [#/Vol] 3.65 10*6/uL Low 4.38-5.83 [facility] Comment on above: Performed By: #### L [id number] #### [facility] (DEFAULT) [address] [place] [address] RBC Distribution 15.5 % High 10.9-14.3 [facility] Comment on above: Performed By: #### L ABSARS1 #### [facility] (DEFAULT) [address] [place] [address]38 WBC (Bld) [#/Vol] 8.25 10*3/uL Normal 3.73-10.10 [facility] Comment on above: Performed By: #### L [id number] #### [facility] (DEFAULT) [address] [place] [address] CHEM 7 (LYTES,BUN,CREA,GLUC) on 11-26-2023 Anion gap [Moles/Vol] 16 mmol/L 7 - 17 mmol/L [facility] Chloride [Moles/Vol] 103 mmol/L 98 - 10 8 mmol/L [facility] CO2 [Moles/Vol] 22 mmol/L 21 - 31 mmol/L [facility] Creatinine [Mass/Vol] 0.87 mg/dL 0.70 - 1.30 mg/dL [facility] eGFR, CKD-EPI, Male - PINF [facility] Glucose [Mass/Vol] 159 mg/dL High 70 - 99 mg/dL [facility] Interpretation and review of laboratory results Abnormal [facility] Osmolality Calc [Osmolality] 294 [facility] Potassium [Moles/Vol] 4.1 mmol/L 3.5 - 5.0 mmol/L [facility] Sodium [Moles/Vol] 137 mmol/L 135 - 145 mmol/L [facility] Urea nitrogen [Mass/Vol] 20 mg/dL 7 - 25 mg/dL [facility] Urea nitrogen/Creatinine [Mass ratio] 23 mg/mg [facility] Anion gap [Moles/Vol] 16 mmol/L Normal 7-17 [facility] Comment on above: Performed By: #### T YPEC #### [facility] (DEFAULT) [address] [place] [address] Chloride [Moles/Vol] 103 mmol/L Normal 98-108 [facility] Comment on above: Performed By: #### T YPEC #### [facility] (DEFAULT) [address] [place] [address] CO2 [Moles/Vol] 22 mmol/L Normal 21-31 [facility] Comment on above: Performed By: #### T YPEC #### [facility] (DEFAULT) [address] [place] [address] Creatinine [Mass/Vol] 0.87 mg/dL Normal 0.70-1.30 [facility] Comment on above: Performed By: #### T YPEC #### [facility] (DEFAULT) [address] [place] [address] 8[address]39 eGFR, CKD-EPI, Male > Normal >=60 [facility] Comment on above: Result Comment: Repo rted eGFR is based on the CKD-EPI 1 equation using creatinine, age, and sex. Performed By: #### T YPEC #### [facility] (DEFAULT) [address] [place] [address] Glucose [Mass/Vol] 159 mg/dL High 70-99 [facility] Comment on above: Performed By: #### T YPEC #### [facility] (DEFAULT) [address] [place] [address] 99836 Osmolality [Osmolality] 294 mosm/kg Normal 278-305 [facility] Comment on above: Performed By: #### T YPEC #### [facility] (DEFAULT) [address] [place] [address] 63073 Potassium [Moles/Vol] 4.1 mmol/L Normal 3.5-5.0 [facility] Comment on above: Performed By: #### T YPEC #### [facility] (DEFAULT) [address] [place] [address] 33973 Sodium [Moles/Vol] 137 mmol/L Normal 135-145 [facility] Comment on above: Performed By: #### T YPEC #### [facility] (DEFAULT) [address] [place] [address] 63568 Urea nitrogen [Mass/Vol] 20 mg/dL Normal 7-25 [facility] Comment on above: Performed By: #### T YPEC #### [facility] (DEFAULT) [address] [place] [address] 36378 Urea nitrogen/Creatinine [Mass ratio] 23 mg/mg Normal [facility] Comment on above: Performed By: #### T YPEC #### [facility] (DEFAULT) [address] [place] [address] 63145 CONTINUOUS CARDIAC MONITORIN G STRIPon 04-21-2024 [facility] GLUCOSE POCon 11-26-2023 Glucose [Mass/Vol] 175 mg/dL High 70 - 99 mg/dL [facility] Interpretation and review of laboratory results Abnormal [facility] POC Sample Type CAPBL [facility] Glucose [Mass/Vol] 200 mg/dL High 70 - 99 mg/dL [facility] Interpretation and review of laboratory results Abnormal [facility] POC Sample Type CAPBL [facility] Glucose [Mass/Vol] 205 mg/dL High 70 - 99 mg/dL [facility] Interpretation and review of laboratory results Abnormal [facility] POC Sample Type CAPBL [facility] IONIZED CALCIUM, WHOLE BLOOD Ordered By: Salud Gomes on 11-26-2023 Calcium.ionized (Bld) [Moles/Vol] 4.35 mg/dL Low 4.60 - 5.30 mg/dL [facility] Interpretation and review of laboratory results Abnormal [facility] IONIZED CALCIUM, WHOLE BLOOD on 11-26-2023 ICA 4.35 mg/dL Low 4.60-5.30 [facility] Comment on above: Performed By: #### M SANDRA M7 #### [facility] (DEFAULT) [address] [place] [address] MAGNESIUMon 11-26-2023 Interpretation and review of laboratory results Normal [facility] Magnesium [Mass/Vol] 1.7 mg/dL 1.6 - 2 .6 mg/dL [facility] Magnesium [Mass/Vol] 1.7 mg/dL Normal 1.6-2.6 [facility] Comment on above: Performed By: #### T YPEC #### [facility] (DEFAULT) [address] [place] [address] No Panel Informationon 11-25 [facility] CBC,PLATELETSon 11-25-2023 Erythrocyte distribution width (RBC) [Ratio] 15.3 % High 10.9 - 14.3 % [facility] Hematocrit (Bld) [Volume fraction] 31.2 % Low 39.6 - 48.8 % [facility] Hemoglobin (Bld) [Mass/Vol] 9.8 g/dL Low 13.4 - 16.8 g/dL [facility] Interpretation and review of laboratory results Abnormal [facility] MCH (RBC) [Entitic mass] 27.6 pg 26.1 - 33.3 pg [facility] MCHC (RBC) [Mass/Vol] 31.4 g/dL Low 31.9 - 36.5 g/dL [facility] MCV (RBC) [Entitic vol] 87.9 fL 79.0 - 94.5 fL [facility] Platelet mean volume (Bld) [Entitic vol] 10.9 fL 8.7 - 12.3 fL [facility] Platelets (Bld) [#/Vol] 285 10*3/uL 146 - 337 K/uL [facility] RBC (Bld) [#/Vol] 3.55 10*6/uL Low [facility] WBC (Bld) [#/Vol] 6.76 10*3/uL 3.73 - 10.10 K/uL [facility] Hematocrit (Bld) [Volume fraction] 31.2 % Low 39.6-48.8 [facility] Comment on above: Performed By: #### G ASVL #### [facility] (DEFAULT) [address] [place] [address] 09217 Hemoglobin (Bld) [Mass/Vol] 9.8 g/dL Low 13.4-16.8 [facility] Comment on above: Performed By: #### G ASVL #### [facility] (DEFAULT) [address] [place] [address] MCV (RBC) [Entitic vol] 87.9 fL Normal 79.0-94.5 [facility] Comment on above: Performed By: #### G ASVL #### [facility] (DEFAULT) [address] [address] Mean Cell Hgb 27.6 pg Normal 26.1-33.3 [facility] Comment on above: Performed By: #### G ASVL #### [facility] (DEFAULT) [address] [address] Mean Cell Hgb Conc 31.4 g/dL Low 31.9-36.5 [facility] Comment on above: Performed By: #### G ASVL #### [facility] (DEFAULT) [address] [address] Platelet mean volume (Bld) [Entitic vol] 10.9 fL Normal 8.7-12.3 [facility] Comment on above: Performed By: #### G ASVL #### [facility] (DEFAULT) [address] [address] Platelets (Bld) [#/Vol] 285 10*3/uL Normal 146-337 [facility] Comment on above: Performed By: #### G ASVL #### [facility] (DEFAULT) [address] [address] RBC (Bld) [#/Vol] 3.55 10*6/uL Low 4.38-5.83 [facility] Comment on above: Performed By: #### G ASVL #### [facility] (DEFAULT) [address] [address] RBC Distribution 15.3 % High 10.9-14.3 [facility] Comment on above: Performed By: #### G ASVL #### [facility] (DEFAULT) [address] [address] WBC (Bld) [#/Vol] 6.76 10*3/uL Normal 3.73-10.10 [facility] Comment on above: Performed By: #### G ASVL #### [facility] (DEFAULT) [address] [place] [address] CHEM 7 (LYTES,BUN,CREA,GLUC) on 11-25-2023 Anion gap [Moles/Vol] 16 mmol/L 7 - 17 mmol/L [facility] Chloride [Moles/Vol] 101 mmol/L 98 - 10 8 mmol/L [facility] CO2 [Moles/Vol] 24 mmol/L 21 - 31 mmol/L [facility] Creatinine [Mass/Vol] 0.91 mg/dL 0.70 - 1.30 mg/dL [facility] eGFR, CKD-EPI, Male - PINF [facility] Glucose [Mass/Vol] 224 mg/dL High 70 - 99 mg/dL [facility] Interpretation and review of laboratory results Abnormal [facility] Osmolality Calc [Osmolality] 298 [facility] Potassium [Moles/Vol] 4.1 mmol/L 3.5 - 5.0 mmol/L [facility] Sodium [Moles/Vol] 137 mmol/L 135 - 145 mmol/L [facility] Urea nitrogen [Mass/Vol] 20 mg/dL 7 - 25 mg/dL [facility] Urea nitrogen/Creatinine [Mass ratio] 22 mg/mg [facility] Anion gap [Moles/Vol] 16 mmol/L Normal 7-17 [facility] Comment on above: Performed By: #### X M #### [facility] (DEFAULT) [address] [place] [address] Chloride [Moles/Vol] 101 mmol/L Normal 98-108 [facility] Comment on above: Performed By: #### X M #### [facility] (DEFAULT) [address] [place] [address] CO2 [Moles/Vol] 24 mmol/L Normal 21-31 [facility] Comment on above: Performed By: #### X M #### [facility] (DEFAULT) [address] [place] [address] Creatinine [Mass/Vol] 0.91 mg/dL Normal 0.70-1.30 [facility] Comment on above: Performed By: #### X M #### [facility] (DEFAULT) [address] [place] [address] 97100 eGFR, CKD-EPI, Male > Normal >=60 [facility] Comment on above: Result Comment: Repo rted eGFR is based on the CKD-EPI 2020 equation using creatinine, age, and sex. Performed By: #### X M #### [facility] (DEFAULT) [address] [place] [address] Glucose [Mass/Vol] 224 mg/dL High 70-99 [facility] Comment on above: Performed By: #### X M #### [facility] (DEFAULT) [address] [place] [address] 09925 Osmolality [Osmolality] 298 mosm/kg Normal 278-305 [facility] Comment on above: Performed By: #### X M #### [facility] (DEFAULT) [address] [place] [address]13 Potassium [Moles/Vol] 4.1 mmol/L Normal 3.5-5.0 [facility] Comment on above: Performed By: #### X M #### [facility] (DEFAULT) [address] [place] [address] 66535 Sodium [Moles/Vol] 137 mmol/L Normal 135-145 [facility] Comment on above: Performed By: #### X M #### [facility] (DEFAULT) [address] [place] [address] 66188 Urea nitrogen [Mass/Vol] 20 mg/dL Normal 7-25 [facility] Comment on above: Performed By: #### X M #### [facility] (DEFAULT) [address] [place] [address] 60269 Urea nitrogen/Creatinine [Mass ratio] 22 mg/mg Normal [facility] Comment on above: Performed By: #### X M #### [facility] (DEFAULT) [address] [place] [address] GLUCOSE POCon 11-25-2023 Glucose [Mass/Vol] 153 mg/dL High 70 - 99 mg/dL [facility] Interpretation and review of laboratory results Abnormal [facility] POC Sample Type CAPBL [facility] Glucose [Mass/Vol] 267 mg/dL High 70 - 99 mg/dL [facility] Interpretation and review of laboratory results Abnormal [facility] POC Sample Type CAPBL [facility] Glucose [Mass/Vol] 318 mg/dL High 70 - 99 mg/dL [facility] Interpretation and review of laboratory results Abnormal [facility] POC Sample Type CAPBL [facility] Glucose [Mass/Vol] 222 mg/dL High 70 - 99 mg/dL [facility] Interpretation and review of laboratory results Abnormal [facility] POC Sample Type CAPBL [facility] Glucose [Mass/Vol] 218 mg/dL High 70 - 99 mg/dL [facility] Interpretation and review of laboratory results Abnormal [facility] POC Sample Type CAPBL [facility] Glucose [Mass/Vol] 225 mg/dL High 70 - 99 mg/dL [facility] Interpretation and review of laboratory results Abnormal [facility] POC Sample Type CAPBL [facility] IONIZED CALCIUM, WHOLE BLOOD Ordered By: Faisal Scott on 11-25-2023 Calcium.ionized (Bld) [Moles/Vol] 4.13 mg/dL Low 4.60 - 5.30 mg/dL [facility] Interpretation and review of laboratory results Abnormal [facility] IONIZED CALCIUM, WHOLE BLOOD on 11-25-2023 ICA 4.13 mg/dL Low 4.60-5.30 [facility] Comment on above: Performed By: #### X M #### [facility] (DEFAULT) [address] [place] [address] MAGNESIUMon 11-25-2023 Interpretation and review of laboratory results Normal [facility] Magnesium [Mass/Vol] 2.1 mg/dL 1.6 - 2 .6 mg/dL [facility] Magnesium [Mass/Vol] 2.1 mg/dL Normal 1.6-2.6 [facility] Comment on above: Performed By: #### X M #### [facility] (DEFAULT) [address] [place] [address] CBC,PLATELETSon 11-24-2023 Erythrocyte distribution width (RBC) [Ratio] 15.1 % High 10.9 - 14.3 % [facility] Hematocrit (Bld) [Volume fraction] 29.0 % Low 39.6 - 48.8 % [facility] Hemoglobin (Bld) [Mass/Vol] 9.4 g/dL Low 13.4 - 16.8 g/dL [facility] Interpretation and review of laboratory results Abnormal [facility] MCH (RBC) [Entitic mass] 27.7 pg 26.1 - 33.3 pg [facility] MCHC (RBC) [Mass/Vol] 32.4 g/dL 31.9 - 36.5 g/dL [facility] MCV (RBC) [Entitic vol] 85.5 fL 79.0 - 94.5 fL [facility] Platelet mean volume (Bld) [Entitic vol] 10.6 fL 8.7 - 12.3 fL [facility] Platelets (Bld) [#/Vol] 267 10*3/uL 146 - 337 K/uL [facility] RBC (Bld) [#/Vol] 3.39 10*6/uL Low [facility] WBC (Bld) [#/Vol] 5.36 10*3/uL 3.73 - 10.10 K/uL [facility] Hematocrit (Bld) [Volume fraction] 29.0 % Low 39.6-48.8 [facility] Comment on above: Performed By: #### T YPEC #### [facility] (DEFAULT) [address] [address] Hemoglobin (Bld) [Mass/Vol] 9.4 g/dL Low 13.4-16.8 [facility] Comment on above: Performed By: #### T YPEC #### [facility] (DEFAULT) [address] [address] MCV (RBC) [Entitic vol] 85.5 fL Normal 79.0-94.5 [facility] Comment on above: Performed By: #### T YPEC #### [facility] (DEFAULT) [address] [address] Mean Cell Hgb 27.7 pg Normal 26.1-33.3 [facility] Comment on above: Performed By: #### T YPEC #### [facility] (DEFAULT) [address] [address] Mean Cell Hgb Conc 32.4 g/dL Normal 31.9-36.5 [facility] Comment on above: Performed By: #### T YPEC #### [facility] (DEFAULT) [address] [address] Platelet mean volume (Bld) [Entitic vol] 10.6 fL Normal 8.7-12.3 [facility] Comment on above: Performed By: #### T YPEC #### [facility] (DEFAULT) [address] [address] Platelets (Bld) [#/Vol] 267 10*3/uL Normal 146-337 [facility] Comment on above: Performed By: #### T YPEC #### [facility] (DEFAULT) [address] [place] [address] RBC (Bld) [#/Vol] 3.39 10*6/uL Low 4.38-5.83 [facility] Comment on above: Performed By: #### T YPEC #### [facility] (DEFAULT) [address] [place] [address] RBC Distribution 15.1 % High 10.9-14.3 [facility] Comment on above: Performed By: #### T YPEC #### [facility] (DEFAULT) [address] [place] [address] WBC (Bld) [#/Vol] 5.36 10*3/uL Normal 3.73-10.10 [facility] Comment on above: Performed By: #### T YPEC #### [facility] (DEFAULT) [address] [place] [address] CHEM 7 (LYTES,BUN,CREA,GLUC) on 11-24-2023 Anion gap [Moles/Vol] 14 mmol/L 7 - 17 mmol/L [facility] Chloride [Moles/Vol] 93 mmol/L Low 98 - 10 8 mmol/L [facility] CO2 [Moles/Vol] 32 mmol/L High 21 - 31 mmol/L [facility] Creatinine [Mass/Vol] 0.89 mg/dL 0.70 - 1.30 mg/dL [facility] eGFR, CKD-EPI, Male - PINF [facility] Glucose [Mass/Vol] 257 mg/dL High 70 - 99 mg/dL [facility] Interpretation and review of laboratory results Abnormal [facility] Osmolality Calc [Osmolality] 298 [facility] Potassium [Moles/Vol] 4.3 mmol/L 3.5 - 5.0 mmol/L [facility] Sodium [Moles/Vol] 135 mmol/L 135 - 145 mmol/L [facility] Urea nitrogen [Mass/Vol] 24 mg/dL 7 - 25 mg/dL [facility] Urea nitrogen/Creatinine [Mass ratio] 27 mg/mg [facility] Anion gap [Moles/Vol] 14 mmol/L Normal 7-17 [facility] Comment on above: Performed By: #### T YPEC #### [facility] (DEFAULT) [address] [place] [address] Chloride [Moles/Vol] 93 mmol/L Low 98-108 [facility] Comment on above: Performed By: #### T YPEC #### [facility] (DEFAULT) [address] [place] [address] CO2 [Moles/Vol] 32 mmol/L High 21-31 [facility] Comment on above: Performed By: #### T YPEC #### [facility] (DEFAULT) [address] [place] [address] Creatinine [Mass/Vol] 0.89 mg/dL Normal 0.70-1.30 [facility] Comment on above: Performed By: #### T YPEC #### [facility] (DEFAULT) [address] [place] [address] eGFR, CKD-EPI, Male > Normal >=60 [facility] Comment on above: Result Comment: Repo rted eGFR is based on the CKD-EPI 2020 equation using creatinine, age, and sex. Performed By: #### T YPEC #### [facility] (DEFAULT) [address] [place] [address] Glucose [Mass/Vol] 257 mg/dL High 70-99 [facility] Comment on above: Performed By: #### T YPEC #### [facility] (DEFAULT) [address] [place] [address] Osmolality [Osmolality] 298 mosm/kg Normal 278-305 [facility] Comment on above: Performed By: #### T YPEC #### [facility] (DEFAULT) [address] [place] [address] Potassium [Moles/Vol] 4.3 mmol/L Normal 3.5-5.0 [facility] Comment on above: Performed By: #### T YPEC #### [facility] (DEFAULT) [address] [place] [address] Sodium [Moles/Vol] 135 mmol/L Normal 135-145 [facility] Comment on above: Performed By: #### T YPEC #### [facility] (DEFAULT) [address] [place] [address] Urea nitrogen [Mass/Vol] 24 mg/dL Normal 7-25 [facility] Comment on above: Performed By: #### T YPEC #### [facility] (DEFAULT) [address] [place] [address] Urea nitrogen/Creatinine [Mass ratio] 27 mg/mg Normal [facility] Comment on above: Performed By: #### T YPEC #### [facility] (DEFAULT) [address] [place] [address] CONTINUOUS CARDIAC MONITORIN G STRIPon 11-24-2023 [facility] GLUCOSE POCon 11-24-2023 Glucose [Mass/Vol] 260 mg/dL High 70 - 99 mg/dL [facility] Interpretation and review of laboratory results Abnormal [facility] POC Sample Type CAPBL [facility] Glucose [Mass/Vol] 292 mg/dL High 70 - 99 mg/dL [facility] Interpretation and review of laboratory results Abnormal [facility] POC Sample Type CAPBL [facility] Glucose [Mass/Vol] 212 mg/dL High 70 - 99 mg/dL [facility] Interpretation and review of laboratory results Abnormal [facility] POC Sample Type CAPBL [facility] IONIZED CALCIUM, WHOLE BLOOD on 11-24-2023 Calcium.ionized (Bld) [Moles/Vol] 4.41 mg/dL Low 4.60 - 5.30 mg/dL [facility] Interpretation and review of laboratory results Abnormal [facility] ICA 4.41 mg/dL Low 4.60-5.30 [facility] Comment on above: Performed By: #### T YPEC #### [facility] (DEFAULT) [address] [place] [address] MAGNESIUMon 11-24-2023 Interpretation and review of laboratory results Normal [facility] Magnesium [Mass/Vol] 1.9 mg/dL 1.6 - 2 .6 mg/dL [facility] Magnesium [Mass/Vol] 1.9 mg/dL Normal 1.6-2.6 [facility] Comment on above: Performed By: #### M SANDRA, CHM7 #### [facility] (DEFAULT) [address] [place] [address] No Panel Informationon 11-23 [facility] VENOUS BLOOD GASon Base excess Calc (Bld) [Moles/Vol] 9.0 mmol/L High -3.0 - 3.0 mmol/L [facility] CO2 (Bld) [Partial pressure] 53 mm[Hg] High [facility] HCO3 (Bld) [Moles/Vol] 34 mmol/L High 22 - 29 mmol/L [facility] Interpretation and review of laboratory results Abnormal [facility] Oxygen (Bld) [Partial pressure] 53 mm[Hg] mm Hg [facility] Oxygen saturation in Blood 81 % High 70 - 80 % [facility] pH (Bld) 7.41 [pH] 7.32 - 7.43 [facility] Specimen source Nom (Unsp spec) Venous [facility] Base Excess 9.0 mmol/L High -3.0-3.0 [facility] Comment on above: Performed By: #### T YPEC #### [facility] (DEFAULT) [address] [place] [address] HCO3 (Bld) [Moles/Vol] 34 mmol/L High 22-29 [facility] Comment on above: Performed By: #### T YPEC #### [facility] (DEFAULT) [address] [place] [address] Oxygen saturation in Blood 81 % High 70-80 [facility] Comment on above: Performed By: #### T YPEC #### [facility] (DEFAULT) [address] [place] [address] pCO2, Venous 53 mm Hg High 36-52 [facility] Comment on above: Performed By: #### T YPEC #### [facility] (DEFAULT) [address] [place] [address] pH, Venous 7.41 Normal 7.32-7.43 [facility] Comment on above: Performed By: #### T YPEC #### [facility] (DEFAULT) [address] [place] [address] pO2, Venous 53 mm Hg Normal [facility] Comment on above: Result Comment: Veno us pO2 is not recommended for the evaluation of oxygen status, clinical correlation is recommended. Performed By: #### T YPEC #### [facility] (DEFAULT) [address] [place] [address] Specimen type Nom (Spec) Venous Normal [facility] Comment on above: Performed By: #### T YPEC #### [facility] (DEFAULT) [address] [address] VENOUS BLOOD GAS PLUS LACTAT Surjit 11-24-2023 Base excess Calc (Bld) [Moles/Vol] 12.8 mmol/L High -3.0 - 3.0 mmol/L [facility] CO2 (Bld) [Partial pressure] 53 mm[Hg] High [facility] HCO3 (Bld) [Moles/Vol] 37 mmol/L High 22 - 29 mmol/L [facility] Interpretation and review of laboratory results Abnormal [facility] Lactate [Moles/Vol] 0.9 mmol/L 0.5 - 1. 6 mmol/L [facility] Oxygen (Bld) [Partial pressure] 57 mm[Hg] mm Hg [facility] Oxygen saturation in Blood 89 % High 70 - 80 % [facility] pH (Bld) 7.45 [pH] High 7.32 - 7.43 [facility] Specimen source Nom (Unsp spec) Venous [facility] Base Excess 12.8 mmol/L High -3.0-3.0 [facility] Comment on above: Performed By: #### G ASVL #### [facility] (DEFAULT) [address] [place] [address] HCO3 (Bld) [Moles/Vol] 37 mmol/L High 22-29 [facility] Comment on above: Performed By: #### G ASVL #### [facility] (DEFAULT) [address] [place] [address] Lactate, Whole Blood 0.9 mmol/L Normal 0.5-1.6 [facility] Comment on above: Performed By: #### G ASVL #### [facility] (DEFAULT) [address] [place] [address] Oxygen saturation in Blood 89 % High 70-80 [facility] Comment on above: Performed By: #### G ASVL #### [facility] (DEFAULT) [address] [place] [address] pCO2, Venous 53 mm Hg High 36-52 [facility] Comment on above: Performed By: #### G ASVL #### [facility] (DEFAULT) [address] [address] pH, Venous 7.45 High 7.32-7.43 [facility] Comment on above: Performed By: #### G ASVL #### [facility] (DEFAULT) [address] [place] [address] pO2, Venous 57 mm Hg Normal [facility] Comment on above: Result Comment: Veno us pO2 is not recommended for the evaluation of oxygen status, clinical correlation is recommended. Performed By: #### G ASVL #### [facility] (DEFAULT) [address] [place] [address] Specimen type Nom (Spec) Venous Normal [facility] Comment on above: Performed By: #### G ASVL #### [facility] (DEFAULT) [address] [place] [address] CBC,PLATELETSon 11-23-2023 Erythrocyte distribution width (RBC) [Ratio] 15.0 % High 10.9 - 14.3 % [facility] Hematocrit (Bld) [Volume fraction] 28.3 % Low 39.6 - 48.8 % [facility] Hemoglobin (Bld) [Mass/Vol] 9.3 g/dL Low 13.4 - 16.8 g/dL [facility] Interpretation and review of laboratory results Abnormal [facility] MCH (RBC) [Entitic mass] 27.5 pg 26.1 - 33.3 pg [facility] MCHC (RBC) [Mass/Vol] 32.9 g/dL 31.9 - 36.5 g/dL [facility] MCV (RBC) [Entitic vol] 83.7 fL 79.0 - 94.5 fL [facility] Platelet mean volume (Bld) [Entitic vol] 10.8 fL 8.7 - 12.3 fL [facility] Platelets (Bld) [#/Vol] 229 10*3/uL 146 - 337 K/uL [facility] RBC (Bld) [#/Vol] 3.38 10*6/uL Low [facility] WBC (Bld) [#/Vol] 5.24 10*3/uL 3.73 - 10.10 K/uL [facility] Hematocrit (Bld) [Volume fraction] 28.3 % Low 39.6-48.8 [facility] Comment on above: Performed By: #### M GO, CHM7 #### [facility] (DEFAULT) [address] [place] [address] Hemoglobin (Bld) [Mass/Vol] 9.3 g/dL Low 13.4-16.8 [facility] Comment on above: Performed By: #### Bonifacio ARIAS CHM7 #### [facility] (DEFAULT) [address] [place] [address] MCV (RBC) [Entitic vol] 83.7 fL Normal 79.0-94.5 [facility] Comment on above: Performed By: #### YULISA GOULD7 #### [facility] (DEFAULT) [address] [place] [address] Mean Cell Hgb 27.5 pg Normal 26.1-33.3 [facility] Comment on above: Performed By: #### YULISA GOULD7 #### [facility] (DEFAULT) [address] [place] [address] Mean Cell Hgb Conc 32.9 g/dL Normal 31.9-36.5 [facility] Comment on above: Performed By: #### Bonifacio ARIAS CHM7 #### [facility] (DEFAULT) [address] [place] [address] Platelet mean volume (Bld) [Entitic vol] 10.8 fL Normal 8.7-12.3 [facility] Comment on above: Performed By: #### Bonifacio ARIAS CHM7 #### [facility] (DEFAULT) [address] [place] [address] Platelets (Bld) [#/Vol] 229 10*3/uL Normal 146-337 [facility] Comment on above: Performed By: #### Bonifacio ARIAS CHM7 #### [facility] (DEFAULT) [address] [place] [address] RBC (Bld) [#/Vol] 3.38 10*6/uL Low 4.38-5.83 [facility] Comment on above: Performed By: #### M SANDRA CHM7 #### [facility] (DEFAULT) [address] [place] [address] RBC Distribution 15.0 % High 10.9-14.3 [facility] Comment on above: Performed By: #### M ARCENIO ARIASM7 #### [facility] (DEFAULT) [address] [place] [address] WBC (Bld) [#/Vol] 5.24 10*3/uL Normal 3.73-10.10 [facility] Comment on above: Performed By: #### Bonifacio ARIAS CHM7 #### [facility] (DEFAULT) [address] [place] [address] CHEM 7 (LYTES,BUN,CREA,GLUC) on 11-23-2023 Anion gap [Moles/Vol] 13 mmol/L 7 - 17 mmol/L [facility] Chloride [Moles/Vol] 90 mmol/L Low 98 - 10 8 mmol/L [facility] CO2 [Moles/Vol] 37 mmol/L High 21 - 31 mmol/L [facility] Creatinine [Mass/Vol] 1.05 mg/dL 0.70 - 1.30 mg/dL [facility] eGFR, CKD-EPI, Male 78 - PINF [facility] Glucose [Mass/Vol] 164 mg/dL High 70 - 99 mg/dL [facility] Interpretation and review of laboratory results Abnormal [facility] Osmolality Calc [Osmolality] 294 [facility] Potassium [Moles/Vol] 3.4 mmol/L Low 3.5 - 5.0 mmol/L [facility] Sodium [Moles/Vol] 137 mmol/L 135 - 145 mmol/L [facility] Urea nitrogen [Mass/Vol] 24 mg/dL 7 - 25 mg/dL [facility] Urea nitrogen/Creatinine [Mass ratio] 23 mg/mg [facility] Anion gap [Moles/Vol] 13 mmol/L Normal 7-17 [facility] Comment on above: Performed By: #### T YPEC #### [facility] (DEFAULT) [address] [place] [address] Chloride [Moles/Vol] 90 mmol/L Low 98-108 [facility] Comment on above: Performed By: #### T YPEC #### [facility] (DEFAULT) [address] [place] [address] CO2 [Moles/Vol] 37 mmol/L High 21-31 [facility] Comment on above: Performed By: #### T YPEC #### [facility] (DEFAULT) [address] [place] [address] Creatinine [Mass/Vol] 1.05 mg/dL Normal 0.70-1.30 [facility] Comment on above: Performed By: #### T YPEC #### [facility] (DEFAULT) [address] [place] [address] GFR/1.73 sq M.predicted among non-blacks MDRD (S/P/Bld) [Vol rate/Area] 78 mL/min/{1.73_m2} Normal >=60 [facility] Comment on above: Result Comment: Repo rted eGFR is based on the CKD-EPI 2020 equation using creatinine, age, and sex. Performed By: #### T YPEC #### [facility] (DEFAULT) [address] [place] [address] Glucose [Mass/Vol] 164 mg/dL High 70-99 [facility] Comment on above: Performed By: #### T YPEC #### [facility] (DEFAULT) [address] [place] [address] Osmolality [Osmolality] 294 mosm/kg Normal 278-305 [facility] Comment on above: Performed By: #### T YPEC #### [facility] (DEFAULT) [address] [place] [address] Potassium [Moles/Vol] 3.4 mmol/L Low 3.5-5.0 [facility] Comment on above: Performed By: #### T YPEC #### [facility] (DEFAULT) [address] [place] [address] Sodium [Moles/Vol] 137 mmol/L Normal 135-145 [facility] Comment on above: Performed By: #### T YPEC #### [facility] (DEFAULT) [address] [place] [address] Urea nitrogen [Mass/Vol] 24 mg/dL Normal 7-25 [facility] Comment on above: Performed By: #### T YPEC #### [facility] (DEFAULT) [address] [place] [address] Urea nitrogen/Creatinine [Mass ratio] 23 mg/mg Normal [facility] Comment on above: Performed By: #### T YPEC #### [facility] (DEFAULT) [address] [place] [address] CONTINUOUS CARDIAC MONITORIN G STRIPon 11-23-2023 [facility] GLUCOSE POCon 11-23-2023 Glucose [Mass/Vol] 239 mg/dL High 70 - 99 mg/dL [facility] Interpretation and review of laboratory results Abnormal [facility] POC Sample Type CAPBL [facility] Glucose [Mass/Vol] 146 mg/dL High 70 - 99 mg/dL [facility] Interpretation and review of laboratory results Abnormal [facility] POC Sample Type CAPBL [facility] Glucose [Mass/Vol] 164 mg/dL High 70 - 99 mg/dL [facility] Interpretation and review of laboratory results Abnormal [facility] POC Sample Type [facility] Glucose [Mass/Vol] 260 mg/dL High 70 - 99 mg/dL [facility] Interpretation and review of laboratory results Abnormal [facility] POC Sample Type CAPBL [facility] Glucose [Mass/Vol] 195 mg/dL High 70 - 99 mg/dL [facility] Interpretation and review of laboratory results Abnormal [facility] POC Sample Type VENO [facility] IONIZED CALCIUM, WHOLE BLOOD on 11-23-2023 Calcium.ionized (Bld) [Moles/Vol] 4.31 mg/dL Low 4.60 - 5.30 mg/dL [facility] Interpretation and review of laboratory results Abnormal [facility] ICA 4.31 mg/dL Low 4.60-5.30 [facility] Comment on above: Performed By: #### X M #### [facility] (DEFAULT) [address] [place] [address] MAGNESIUMon 11-23-2023 Magnesium [Mass/Vol] 2.3 mg/dL 1.6 - 2 .6 mg/dL [facility] Magnesium [Mass/Vol] 2.3 mg/dL Normal 1.6-2.6 [facility] Comment on above: Order Comment: Medic ine Electrolyte Replacement Protocol: Recheck magnesium level eight (8) hours after each 4g Magnesium Sulfate dose if most recent magnesium level is less than 1.3 mg/dL. Draw with next day morning labs after replacements for previous magnesium levels between 1.3-1.9 mg/dL. Performed By: #### M LUNA ARIASO ####[facility] (DEFAULT)[address] [address] Interpretation and review of laboratory results Normal [facility] Magnesium [Mass/Vol] 1.8 mg/dL 1.6 - 2 .6 mg/dL [facility] Magnesium [Mass/Vol] 1.8 mg/dL Normal 1.6-2.6 [facility] Comment on above: Performed By: #### T YPEC #### [facility] (DEFAULT) [address] [address] No Panel Informationon 11-22 Interpretation and review of laboratory results Normal [facility] POTASSIUMon 11-23-2023 Potassium [Moles/Vol] 3.9 mmol/L 3.5 - 5.0 mmol/L [facility] Potassium [Moles/Vol] 3.9 mmol/L Normal 3.5-5.0 [facility] Comment on above: Order Comment: Medic ine Electrolyte Replacement Protocol: Recheck eight hours after each 60 mEq dose of Potassium chloride if most recent Potassium is less than 3 mmol/L. Draw with next day morning labs after 40 mEq dose of Potassium chloride. Performed By: #### M LAVERN ARIAS ####[facility] (DEFAULT)[address] [place] [address] Portable XR Chest Viewson RADIOLOGY RADIOLOGY [facility] Radiology Study observation (narrative) [facility] VENOUS BLOOD GASon Base excess Calc (Bld) [Moles/Vol] 14.6 mmol/L High -3.0 - 3.0 mmol/L [facility] CO2 (Bld) [Partial pressure] 54 mm[Hg] High [facility] HCO3 (Bld) [Moles/Vol] 38 mmol/L High 22 - 29 mmol/L [facility] Interpretation and review of laboratory results Abnormal [facility] Oxygen (Bld) [Partial pressure] [facility] Oxygen saturation in Blood 77 % 70 - 80 % [facility] pH (Bld) 7.46 [pH] High 7.32 - 7.43 [facility] Specimen source Nom (Unsp spec) Venous [facility] Base Excess 14.6 mmol/L High -3.0-3.0 [facility] Comment on above: Performed By: #### T YPEC #### [facility] (DEFAULT) [address] [place] [address] HCO3 (Bld) [Moles/Vol] 38 mmol/L High 22-29 [facility] Comment on above: Performed By: #### T YPEC #### [facility] (DEFAULT) [address] [place] [address] Oxygen saturation in Blood 77 % Normal 70-80 [facility] Comment on above: Performed By: #### T YPEC #### [facility] (DEFAULT) [address] [place] [address] pCO2, Venous 54 mm Hg High 36-52 [facility] Comment on above: Performed By: #### T YPEC #### [facility] (DEFAULT) [address] [place] [address] pH, Venous 7.46 High 7.32-7.43 [facility] Comment on above: Performed By: #### T YPEC #### [facility] (DEFAULT) [address] [address] pO2, Venous Normal [facility] Comment on above: Result Comment: This calculated result is unavailable due to one or more measured constituents exceeding the measuring range limits Venous pO2 is not recommended for the evaluation of oxygen status, clinical correlation is recommended. Performed By: #### T YPEC #### [facility] (DEFAULT) [address] [place] [address] Specimen type Nom (Spec) Venous Normal [facility] Comment on above: Performed By: #### T YPEC #### [facility] (DEFAULT) [address] [place] [address] XR CHEST 1 VIEW PORTABLEon 0 11-23-2023 [...] scarring at the left lateral base. Normal [facility] CBC,PLATELETSon 11-22-2023 Erythrocyte distribution width (RBC) [Ratio] 15.7 % High 10.9 - 14.3 % [facility] Hematocrit (Bld) [Volume fraction] 29.7 % Low 39.6 - 48.8 % [facility] Hemoglobin (Bld) [Mass/Vol] 9.4 g/dL Low 13.4 - 16.8 g/dL [facility] Interpretation and review of laboratory results Abnormal [facility] MCH (RBC) [Entitic mass] 26.9 pg 26.1 - 33.3 pg [facility] MCHC (RBC) [Mass/Vol] 31.6 g/dL Low 31.9 - 36.5 g/dL [facility] MCV (RBC) [Entitic vol] 84.9 fL 79.0 - 94.5 fL [facility] Platelet mean volume (Bld) [Entitic vol] 10.7 fL 8.7 - 12.3 fL [facility] Platelets (Bld) [#/Vol] 221 10*3/uL 146 - 337 K/uL [facility] RBC (Bld) [#/Vol] 3.50 10*6/uL Low [facility] WBC (Bld) [#/Vol] 5.22 10*3/uL 3.73 - 10.10 K/uL [facility] Hematocrit (Bld) [Volume fraction] 29.7 % Low 39.6-48.8 [facility] Comment on above: Performed By: #### X M #### [facility] (DEFAULT) [address] [address] Hemoglobin (Bld) [Mass/Vol] 9.4 g/dL Low 13.4-16.8 [facility] Comment on above: Performed By: #### X M #### [facility] (DEFAULT) [address] [address] MCV (RBC) [Entitic vol] 84.9 fL Normal 79.0-94.5 [facility] Comment on above: Performed By: #### X M #### [facility] (DEFAULT) [address] [address] Mean Cell Hgb 26.9 pg Normal 26.1-33.3 [facility] Comment on above: Performed By: #### X M #### [facility] (DEFAULT) [address] [address] Mean Cell Hgb Conc 31.6 g/dL Low 31.9-36.5 [facility] Comment on above: Performed By: #### X M #### [facility] (DEFAULT) [address] [address] Platelet mean volume (Bld) [Entitic vol] 10.7 fL Normal 8.7-12.3 [facility] Comment on above: Performed By: #### X M #### [facility] (DEFAULT) [address] [address] Platelets (Bld) [#/Vol] 221 10*3/uL Normal 146-337 [facility] Comment on above: Performed By: #### X M #### [facility] (DEFAULT) [address] [address] RBC (Bld) [#/Vol] 3.50 10*6/uL Low 4.38-5.83 [facility] Comment on above: Performed By: #### X M #### [facility] (DEFAULT) [address] [address] RBC Distribution 15.7 % High 10.9-14.3 [facility] Comment on above: Performed By: #### X M #### [facility] (DEFAULT) [address] [address] WBC (Bld) [#/Vol] 5.22 10*3/uL Normal 3.73-10.10 [facility] Comment on above: Performed By: #### X M #### [facility] (DEFAULT) [address] [place] [address] CHEM 7 (LYTES,BUN,CREA,GLUC) on 11-22-2023 Anion gap [Moles/Vol] 13 mmol/L 7 - 17 mmol/L [facility] Chloride [Moles/Vol] 92 mmol/L Low 98 - 10 8 mmol/L [facility] CO2 [Moles/Vol] 35 mmol/L High 21 - 31 mmol/L [facility] Creatinine [Mass/Vol] 0.90 mg/dL 0.70 - 1.30 mg/dL [facility] eGFR, CKD-EPI, Male - PINF [facility] Glucose [Mass/Vol] 168 mg/dL High 70 - 99 mg/dL [facility] Interpretation and review of laboratory results Abnormal [facility] Osmolality Calc [Osmolality] 295 [facility] Potassium [Moles/Vol] 3.8 mmol/L 3.5 - 5.0 mmol/L [facility] Sodium [Moles/Vol] 136 mmol/L 135 - 145 mmol/L [facility] Urea nitrogen [Mass/Vol] 28 mg/dL High 7 - 25 mg/dL [facility] Urea nitrogen/Creatinine [Mass ratio] 31 mg/mg [facility] Anion gap [Moles/Vol] 13 mmol/L Normal -17 [facility] Comment on above: Performed By: #### L ABHSTI1 #### [facility] (DEFAULT) [address] [place] [address] Chloride [Moles/Vol] 92 mmol/L Low 98-108 [facility] Comment on above: Performed By: #### L ABHSTI1 #### [facility] (DEFAULT) [address] [place] [address] CO2 [Moles/Vol] 35 mmol/L High 21-31 [facility] Comment on above: Performed By: #### L ABHSTI1 #### [facility] (DEFAULT) [address] [place] [address] Creatinine [Mass/Vol] 0.90 mg/dL Normal 0.70-1.30 [facility] Comment on above: Performed By: #### L ABHSTI1 #### [facility] (DEFAULT) [address] [place] [address] eGFR, CKD-EPI, Male > Normal >=60 [facility] Comment on above: Result Comment: Repo rted eGFR is based on the CKD-EPI 2020 equation using creatinine, age, and sex. Performed By: #### L ABHSTI1 #### [facility] (DEFAULT) [address] [address] Glucose [Mass/Vol] 168 mg/dL High 70-99 [facility] Comment on above: Performed By: #### L ABHSTI1 #### [facility] (DEFAULT) [address] [address] Osmolality [Osmolality] 295 mosm/kg Normal 278-305 [facility] Comment on above: Performed By: #### L ABHSTI1 #### [facility] (DEFAULT) [address] [address] Potassium [Moles/Vol] 3.8 mmol/L Normal 3.5-5.0 [facility] Comment on above: Performed By: #### L ABHSTI1 #### [facility] (DEFAULT) [address] [place] [address] Sodium [Moles/Vol] 136 mmol/L Normal 135-145 [facility] Comment on above: Performed By: #### L ABHSTI1 #### [facility] (DEFAULT) [address] [address] Urea nitrogen [Mass/Vol] 28 mg/dL High 7-25 [facility] Comment on above: Performed By: #### L ABHSTI1 #### [facility] (DEFAULT) [address] [place] [address] Urea nitrogen/Creatinine [Mass ratio] 31 mg/mg Normal [facility] Comment on above: Performed By: #### L ABHSTI1 #### [facility] (DEFAULT) [address] [place] [address] CONTINUOUS CARDIAC MONITORIN G STRIPon 11-22-2023 [facility] CT ANGIO ABDOMEN [...] and ancillary findings as described above. Normal [facility] CT Abdomen and Pelvis and CT angiogram Abdominal aorta WO and W contrast Messi 11-22-2023 RADIOLOGY RADIOLOGY [facility] CT Abdomen and Pelvis and CT angiogram Abdominal aorta WO and W contrast IVOrdered By: Karla Aldana on 11-22-2023 [facility] Work Phone: Cardiac catheterization stud yOrdered By: Abelardo Santiago on 11-22-2023 Body surface area Derived from formula 1.73 m2 [facility] Work Phone: [facility] Work Phone: Cardiac catheterization stud yon 11-22-2023 [facility] GLUCOSE POCon 11-22-2023 Glucose [Mass/Vol] 170 mg/dL High 70 - 99 mg/dL [facility] Interpretation and review of laboratory results Abnormal [facility] POC Sample Type CAPBL [facility] Glucose [Mass/Vol] 152 mg/dL High 70 - 99 mg/dL [facility] Interpretation and review of laboratory results Abnormal [facility] POC Sample [facility] Glucose [Mass/Vol] 174 mg/dL High 70 - 99 mg/dL [facility] Interpretation and review of laboratory results Abnormal [facility] POC Sample Type [facility] Glucose [Mass/Vol] 234 mg/dL High 70 - 99 mg/dL [facility] Interpretation and review of laboratory results Abnormal [facility] POC Sample Type [facility] INVASIVE CARDIOVASCULAR PROC EDUENIOlucy 11-22-2023 INVASIVE CARDIOVASCULAR PROCEDURE 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 Further recommendations per cardiology consult team -- Access: Right femoral artery. Vessel is significantly calcified Coronary angiography: severe nenana 3v disease The left main is 100% [...] the original result were not included. Yony Vega Invasive Cardiology Cath Procedure Ordering Physician: DONNA BAILEY Order #: [id number] Study Date: 11/20/2023 Patient Information Name MRN Description Yony Vega [id number] 68 y.o. male Location Name Address [facility] [address] [facility] [address] Physicians Panel Physicians Referring Physician Case Authorizing Physician Abelardo Santiago Jr., MD (Primary) DO Donna Holt, [employer] MAN-JUNIOR ANALYST Karla Gonzalez MD (Fellow) Vonda Griggs MD, [...] Vessel is significantly calcified Coronary angiography: severe nenana 3v disease The left main is 100% [...] obtained. The patient was brought to the sanitation laborer and placed on the table. The [...] Fluoro Dose Fluoro Dose: 49 Gy-cm^2 Cardiac Cut Off Tender Glass Attending Physician Statement and Signature I have personally performed and/or personally supervised and was present for this entire procedure, including the review and interpretation of all images and physiologic tracings acquired during the course of this study. Signed Electronically si (more content not included)... Normal [facility] IONIZED CALCIUM, WHOLE BLOOD on 11-22-2023 Calcium.ionized (Bld) [Moles/Vol] 4.36 mg/dL Low 4.60 - 5.30 mg/dL [facility] Interpretation and review of laboratory results Abnormal [facility] ICA 4.36 mg/dL Low 4.60-5.30 [facility] Comment on above: Performed By: #### T YPEC #### [facility] (DEFAULT) [address] [place] [address] MAGNESIUMon 11-22-2023 Interpretation and review of laboratory results Normal [facility] Magnesium [Mass/Vol] 1.8 mg/dL 1.6 - 2 .6 mg/dL [facility] Magnesium [Mass/Vol] 1.8 mg/dL Normal 1.6-2.6 [facility] Comment on above: Performed By: #### X M #### [facility] (DEFAULT) [address] [place] [address] No Panel Informationon 11-21 [facility] Portable XR Chest Viewson RADIOLOGY RADIOLOGY [facility] Radiology Study observation (narrative) [facility] Portable XR Chest ViewsOrder ed By: Miguel Angel Peña on 11-22-2023 [facility] Work Phone: XR CHEST 1 VIEW PORTABLEon [...] IMPRESSION: Pulmonary edema, unchanged. Postop changes. Normal [facility] ARTERIAL BLOOD GAS PLUS LACT ATEon 11-21-2023 Base excess Calc (Bld) [Moles/Vol] 9.8 mmol/L High -3.0 - 3.0 mmol/L [facility] CO2 (Bld) [Partial pressure] 50 mm[Hg] High [facility] HCO3 (Bld) [Moles/Vol] 34 mmol/L High 22 - 28 mmol/L [facility] Inhaled oxygen concentration 70 % [facility] Interpretation and review of laboratory results Abnormal [facility] Lactate [Moles/Vol] 1.6 mmol/L 0.5 - 1. 6 mmol/L [facility] Oxygen (Bld) [Partial pressure] 62 mm[Hg] Low [facility] Oxygen saturation in Blood 92 % Low 94 - 98 % [facility] PF Ratio 89 [facility] pH (Bld) 7.44 [pH] 7.35 - 7.45 [facility] Specimen source Nom (Unsp spec) Arterial [facility] Base Excess 9.8 mmol/L High -3.0-3.0 [facility] Comment on above: Performed By: #### T YPEC #### [facility] (DEFAULT) [address] [place] [address] FIO2 70 % Normal [facility] Comment on above: Performed By: #### T YPEC #### [facility] (DEFAULT) [address] [place] [address]698 HCO3 (Bld) [Moles/Vol] 34 mmol/L High 22-28 [facility] Comment on above: Performed By: #### T YPEC #### [facility] (DEFAULT) [address] [place] [address] Lactate, Whole Blood 1.6 mmol/L Normal 0.5-1.6 [facility] Comment on above: Performed By: #### T YPEC #### [facility] (DEFAULT) [address] [place] [address] Oxygen saturation in Blood 92 % Low 94-98 [facility] Comment on above: Performed By: #### T YPEC #### [facility] (DEFAULT) [address] [place] [address] pCO2 50 mm Hg High 32-48 [facility] Comment on above: Performed By: #### T YPEC #### [facility] (DEFAULT) [address] [place] [address] PF Ratio 89 Normal [facility] Comment on above: Performed By: #### T YPEC #### [facility] (DEFAULT) [address] [address] pH, Arterial 7.44 Normal 7.35-7.45 [facility] Comment on above: Performed By: #### T YPEC #### [facility] (DEFAULT) [address] [place] [address] pO2 62 mm Hg Low 83-108 [facility] Comment on above: Performed By: #### T YPEC #### [facility] (DEFAULT) [address] [place] [address] Specimen type Nom (Spec) Arterial Normal [facility] Comment on above: Performed By: #### T YPEC #### [facility] (DEFAULT) [address] [place] [address] CALCIUMon 11-21-2023 Calcium [Mass/Vol] 8.8 mg/dL 8.6 - 10. 5 mg/dL [facility] Calcium [Mass/Vol] 8.8 mg/dL Normal 8.6-10.5 [facility] Comment on above: Performed By: #### G ASVL #### [facility] (DEFAULT) [address] [place] [address] CBC,PLATELETSon 11-21-2023 Erythrocyte distribution width (RBC) [Ratio] 16.0 % High 10.9 - 14.3 % [facility] Hematocrit (Bld) [Volume fraction] 29.8 % Low 39.6 - 48.8 % [facility] Hemoglobin (Bld) [Mass/Vol] 9.4 g/dL Low 13.4 - 16.8 g/dL [facility] Interpretation and review of laboratory results Abnormal [facility] MCH (RBC) [Entitic mass] 27.6 pg 26.1 - 33.3 pg [facility] MCHC (RBC) [Mass/Vol] 31.5 g/dL Low 31.9 - 36.5 g/dL [facility] MCV (RBC) [Entitic vol] 87.4 fL 79.0 - 94.5 fL [facility] Platelet mean volume (Bld) [Entitic vol] 11.2 fL 8.7 - 12.3 fL [facility] Platelets (Bld) [#/Vol] 236 10*3/uL 146 - 337 K/uL [facility] RBC (Bld) [#/Vol] 3.41 10*6/uL Low [facility] WBC (Bld) [#/Vol] 7.39 10*3/uL 3.73 - 10.10 K/uL [facility] Hematocrit (Bld) [Volume fraction] 29.8 % Low 39.6-48.8 [facility] Comment on above: Performed By: #### Bonifacio ARIAS CHM7 #### [facility] (DEFAULT) [address] [place] [address] Hemoglobin (Bld) [Mass/Vol] 9.4 g/dL Low 13.4-16.8 [facility] Comment on above: Performed By: #### YULISA GOULD7 #### [facility] (DEFAULT) [address] [address] MCV (RBC) [Entitic vol] 87.4 fL Normal 79.0-94.5 [facility] Comment on above: Performed By: #### YULISA GOULD7 #### [facility] (DEFAULT) [address] [place] [address] Mean Cell Hgb 27.6 pg Normal 26.1-33.3 [facility] Comment on above: Performed By: #### YULISA GOULD7 #### [facility] (DEFAULT) [address] [place] [address] Mean Cell Hgb Conc 31.5 g/dL Low 31.9-36.5 [facility] Comment on above: Performed By: #### Bonifacio ARIAS CHM7 #### [facility] (DEFAULT) [address] [place] [address] Platelet mean volume (Bld) [Entitic vol] 11.2 fL Normal 8.7-12.3 [facility] Comment on above: Performed By: #### Bonifacio ARIAS CHM7 #### [facility] (DEFAULT) [address] [place] [address] Platelets (Bld) [#/Vol] 236 10*3/uL Normal 146-337 [facility] Comment on above: Performed By: #### Bonifacio ARIAS CHM7 #### [facility] (DEFAULT) [address] [place] [address] RBC (Bld) [#/Vol] 3.41 10*6/uL Low 4.38-5.83 [facility] Comment on above: Performed By: #### Bonifacio ARIAS CHM7 #### [facility] (DEFAULT) [address] [place] [address] RBC Distribution 16.0 % High 10.9-14.3 [facility] Comment on above: Performed By: #### Bonifacio ARIAS CHM7 #### [facility] (DEFAULT) [address] [place] [address] WBC (Bld) [#/Vol] 7.39 10*3/uL Normal 3.73-10.10 [facility] Comment on above: Performed By: #### BAILEY GOULD #### [facility] (DEFAULT) [address] [place] [address] CHEM 7 (LYTES,BUN,CREA,GLUC) on 11-21-2023 Anion gap [Moles/Vol] 15 mmol/L 7 - 17 mmol/L [facility] Chloride [Moles/Vol] 95 mmol/L Low 98 - 10 8 mmol/L [facility] CO2 [Moles/Vol] 30 mmol/L 21 - 31 mmol/L [facility] Creatinine [Mass/Vol] 0.90 mg/dL 0.70 - 1.30 mg/dL [facility] eGFR, CKD-EPI, Male - PINF [facility] Glucose [Mass/Vol] 223 mg/dL High 70 - 99 mg/dL [facility] Interpretation and review of laboratory results Abnormal [facility] Osmolality Calc [Osmolality] 299 [facility] Potassium [Moles/Vol] 4.3 mmol/L 3.5 - 5.0 mmol/L [facility] Sodium [Moles/Vol] 136 mmol/L 135 - 145 mmol/L [facility] Urea nitrogen [Mass/Vol] 28 mg/dL High 7 - 25 mg/dL [facility] Urea nitrogen/Creatinine [Mass ratio] 31 mg/mg [facility] Anion gap [Moles/Vol] 15 mmol/L Normal 7-17 [facility] Comment on above: Performed By: #### G ASVL #### [facility] (DEFAULT) [address] [place] [address] Chloride [Moles/Vol] 95 mmol/L Low 98-108 [facility] Comment on above: Performed By: #### G ASVL #### [facility] (DEFAULT) [address] [place] [address] CO2 [Moles/Vol] 30 mmol/L Normal 21-31 [facility] Comment on above: Performed By: #### G ASVL #### [facility] (DEFAULT) [address] [place] [address] Creatinine [Mass/Vol] 0.90 mg/dL Normal 0.70-1.30 [facility] Comment on above: Performed By: #### G ASVL #### [facility] (DEFAULT) [address] [place] [address] eGFR, CKD-EPI, Male > Normal >=60 [facility] Comment on above: Result Comment: Repo rted eGFR is based on the CKD-EPI 2020 equation using creatinine, age, and sex. Performed By: #### G ASVL #### [facility] (DEFAULT) [address] [place] [address] Glucose [Mass/Vol] 223 mg/dL High 70-99 [facility] Comment on above: Performed By: #### G ASVL #### [facility] (DEFAULT) [address] [place] [address]108 Osmolality [Osmolality] 299 mosm/kg Normal 278-305 [facility] Comment on above: Performed By: #### G ASVL #### [facility] (DEFAULT) [address] [place] [address] Potassium [Moles/Vol] 4.3 mmol/L Normal 3.5-5.0 [facility] Comment on above: Performed By: #### G ASVL #### [facility] (DEFAULT) [address] [place] [address] Sodium [Moles/Vol] 136 mmol/L Normal 135-145 [facility] Comment on above: Performed By: #### G ASVL #### [facility] (DEFAULT) [address] [place] [address] Urea nitrogen [Mass/Vol] 28 mg/dL High 7-25 [facility] Comment on above: Performed By: #### G ASVL #### [facility] (DEFAULT) [address] [place] [address] Urea nitrogen/Creatinine [Mass ratio] 31 mg/mg Normal [facility] Comment on above: Performed By: #### G ASVL #### [facility] (DEFAULT) [address] [place] [address] CONTINUOUS CARDIAC MONITORIN G STRIPon 11-21-2023 [facility] [address] ANGIO BRAIN/NECKon 2023 CT ANGIO BRAIN/NECK [...] plaque causi (more content not included)... Normal [facility] CT Abdomen and Pelvis and CT angiogram Abdominal aorta WO and W contrast Messi 11-21-2023 Radiology Study observation (narrative) [facility] CT Head and CT Brain for per fusion and CT angiogram Head vessels WO and W contrast Messi 11-21-2023 RADIOLOGY RADIOLOGY [facility] Radiology Study observation (narrative) [facility] CT Head limitedon 11-21-2023 RADIOLOGY RADIOLOGY [facility] Radiology Study observation (narrative) [facility] CT Head limitedOrdered By: Joce Cobb on 11-21-2023 [facility] Work Phone: CT STROKE HEAD-STROKE ALERT ONLYon [...] have reviewed and approved this report. Normal [facility] GLUCOSE POCon 11-21-2023 Glucose [Mass/Vol] 226 mg/dL High 70 - 99 mg/dL [facility] Interpretation and review of laboratory results Abnormal [facility] POC Sample Type CAPBL [facility] Glucose [Mass/Vol] 197 mg/dL High 70 - 99 mg/dL [facility] Interpretation and review of laboratory results Abnormal [facility] POC Sample Type CAPBL [facility] Glucose [Mass/Vol] 254 mg/dL High 70 - 99 mg/dL [facility] Interpretation and review of laboratory results Abnormal [facility] POC Sample Type CAPBL [facility] Glucose [Mass/Vol] 247 mg/dL High 70 - 99 mg/dL [facility] Interpretation and review of laboratory results Abnormal [facility] POC Sample Type CAPBL [facility] Glucose [Mass/Vol] 204 mg/dL High 70 - 99 mg/dL [facility] Interpretation and review of laboratory results Abnormal [facility] POC Sample Type VENO [facility] Glucose [Mass/Vol] 245 mg/dL High 70 - 99 mg/dL [facility] Interpretation and review of laboratory results Abnormal [facility] POC Sample Type VENO [facility] MAGNESIUMon 11-21-2023 Magnesium [Mass/Vol] 1.9 mg/dL 1.6 - 2 .6 mg/dL [facility] Magnesium [Mass/Vol] 1.9 mg/dL Normal 1.6-2.6 [facility] Comment on above: Performed By: #### G ASVL #### [facility] (DEFAULT) [address] [place] [address] No Panel Informationon 11-20 Interpretation and review of laboratory results Normal [facility] PHOSPHATE, INORGANICon 11-20 Phosphate [Mass/Vol] 3.4 mg/dL 2.2 - 4 .6 mg/dL [facility] Phosphorous 3.4 mg/dL Normal 2.2-4.6 [facility] Comment on above: Performed By: #### G ASVL #### [facility] (DEFAULT) [address] [place] [address] PLATELET COUNTon 11-21-2023 Interpretation and review of laboratory results Normal [facility] Platelet mean volume (Bld) [Entitic vol] 10.7 fL 8.7 - 12.3 fL [facility] Platelets (Bld) [#/Vol] 222 10*3/uL 146 - 337 K/uL [facility] Platelet mean volume (Bld) [Entitic vol] 10.7 fL Normal 8.7-12.3 [facility] Comment on above: Performed By: #### T YPEC #### [facility] (DEFAULT) [address] [place] [address] Platelets (Bld) [#/Vol] 222 10*3/uL Normal 146-337 [facility] Comment on above: Performed By: #### T YPEC #### [facility] (DEFAULT) [address] [place] [address] PTTon 11-21-2023 aPTT Coag (PPP) [Time] 109.3 s High OS [facility] Interpretation and review of laboratory results Abnormal [facility] aPTT Coag (Bld) [Time] 109.3 s High 24.0-34.3 [facility] Comment on above: Performed By: #### L ABSARS1 #### [facility] (DEFAULT) [address] [place] [address] Portable XR Chest Viewson RADIOLOGY RADIOLOGY [facility] Radiology Study observation (narrative) [facility] XR CHEST 1 VIEW PORTABLEon 0 11-21-2023 [...] lower lobes more on the left. Normal [facility] ACT* LOW RANGE, POCon 2023 ACT LOW RANGE, POC 144.0 [facility] Interpretation and review of laboratory results Normal [facility] ACT LOW RANGE, POC 161.0 High [facility] Interpretation and review of laboratory results Abnormal [facility] CALCIUMon 11-20-2023 Calcium [Mass/Vol] 8.0 mg/dL Low 8.6 - 10. 5 mg/dL [facility] Calcium [Mass/Vol] 8.0 mg/dL Low 8.6-10.5 [facility] Comment on above: Performed By: #### P TT #### [facility] (DEFAULT) [address] [place] [address] CBC,PLATELETSon 11-20-2023 Erythrocyte distribution width (RBC) [Ratio] 15.4 % High 10.9 - 14.3 % [facility] Hematocrit (Bld) [Volume fraction] 29.6 % Low 39.6 - 48.8 % [facility] Hemoglobin (Bld) [Mass/Vol] 9.4 g/dL Low 13.4 - 16.8 g/dL [facility] Interpretation and review of laboratory results Abnormal [facility] MCH (RBC) [Entitic mass] 26.9 pg 26.1 - 33.3 pg [facility] MCHC (RBC) [Mass/Vol] 31.8 g/dL Low 31.9 - 36.5 g/dL [facility] MCV (RBC) [Entitic vol] 84.8 fL 79.0 - 94.5 fL [facility] Platelet mean volume (Bld) [Entitic vol] 11.2 fL 8.7 - 12.3 fL [facility] Platelets (Bld) [#/Vol] 195 10*3/uL 146 - 337 K/uL [facility] RBC (Bld) [#/Vol] 3.49 10*6/uL Low [facility] WBC (Bld) [#/Vol] 8.15 10*3/uL 3.73 - 10.10 K/uL [facility] Hematocrit (Bld) [Volume fraction] 29.6 % Low 39.6-48.8 [facility] Comment on above: Performed By: #### T YPEC #### [facility] (DEFAULT) [address] [address] Hemoglobin (Bld) [Mass/Vol] 9.4 g/dL Low 13.4-16.8 [facility] Comment on above: Performed By: #### T YPEC #### [facility] (DEFAULT) [address] [address] MCV (RBC) [Entitic vol] 84.8 fL Normal 79.0-94.5 [facility] Comment on above: Performed By: #### T YPEC #### [facility] (DEFAULT) [address] [address] Mean Cell Hgb 26.9 pg Normal 26.1-33.3 [facility] Comment on above: Performed By: #### T YPEC #### [facility] (DEFAULT) [address] [address] Mean Cell Hgb Conc 31.8 g/dL Low 31.9-36.5 [facility] Comment on above: Performed By: #### T YPEC #### [facility] (DEFAULT) [address] [address] Platelet mean volume (Bld) [Entitic vol] 11.2 fL Normal 8.7-12.3 [facility] Comment on above: Performed By: #### T YPEC #### [facility] (DEFAULT) [address] [address] Platelets (Bld) [#/Vol] 195 10*3/uL Normal 146-337 [facility] Comment on above: Performed By: #### T YPEC #### [facility] (DEFAULT) [address] [address] RBC (Bld) [#/Vol] 3.49 10*6/uL Low 4.38-5.83 [facility] Comment on above: Performed By: #### T YPEC #### [facility] (DEFAULT) [address] [place] [address] RBC Distribution 15.4 % High 10.9-14.3 [facility] Comment on above: Performed By: #### T YPEC #### [facility] (DEFAULT) [address] [place] [address] WBC (Bld) [#/Vol] 8.15 10*3/uL Normal 3.73-10.10 [facility] Comment on above: Performed By: #### T YPEC #### [facility] (DEFAULT) [address] [place] [address] CHEM 7 (LYTES,BUN,CREA,GLUC) on 11-20-2023 Anion gap [Moles/Vol] 13 mmol/L 7 - 17 mmol/L [facility] Chloride [Moles/Vol] 98 mmol/L 98 - 10 8 mmol/L [facility] CO2 [Moles/Vol] 30 mmol/L 21 - 31 mmol/L [facility] Creatinine [Mass/Vol] 0.93 mg/dL 0.70 - 1.30 mg/dL [facility] eGFR, CKD-EPI, Male - PINF [facility] Glucose [Mass/Vol] 224 mg/dL High 70 - 99 mg/dL [facility] Osmolality Calc [Osmolality] 298 [facility] Potassium [Moles/Vol] 3.5 mmol/L 3.5 - 5.0 mmol/L [facility] Sodium [Moles/Vol] 137 mmol/L 135 - 145 mmol/L [facility] Urea nitrogen [Mass/Vol] 23 mg/dL 7 - 25 mg/dL [facility] Urea nitrogen/Creatinine [Mass ratio] 25 mg/mg [facility] Anion gap [Moles/Vol] 13 mmol/L Normal 7-17 [facility] Comment on above: Performed By: #### P TT #### [facility] (DEFAULT) [address] [place] [address] Chloride [Moles/Vol] 98 mmol/L Normal 98-108 [facility] Comment on above: Performed By: #### P TT #### [facility] (DEFAULT) [address] [place] [address] CO2 [Moles/Vol] 30 mmol/L Normal 21-31 [facility] Comment on above: Performed By: #### P TT #### [facility] (DEFAULT) [address] [place] [address] Creatinine [Mass/Vol] 0.93 mg/dL Normal 0.70-1.30 [facility] Comment on above: Performed By: #### P TT #### [facility] (DEFAULT) [address] [place] [address] eGFR, CKD-EPI, Male > Normal >=60 [facility] Comment on above: Result Comment: Repo rted eGFR is based on the CKD-EPI 2020 equation using creatinine, age, and sex. Performed By: #### P TT #### [facility] (DEFAULT) [address] [place] [address] Glucose [Mass/Vol] 224 mg/dL High 70-99 [facility] Comment on above: Performed By: #### P TT #### [facility] (DEFAULT) [address] [place] [address]9 Osmolality [Osmolality] 298 mosm/kg Normal 278-305 [facility] Comment on above: Performed By: #### P TT #### [facility] (DEFAULT) [address] [place] [address] Potassium [Moles/Vol] 3.5 mmol/L Normal 3.5-5.0 [facility] Comment on above: Performed By: #### P TT #### [facility] (DEFAULT) [address] [place] [address] Sodium [Moles/Vol] 137 mmol/L Normal 135-145 [facility] Comment on above: Performed By: #### P TT #### [facility] (DEFAULT) [address] [place] [address] Urea nitrogen [Mass/Vol] 23 mg/dL Normal 7-25 [facility] Comment on above: Performed By: #### P TT #### [facility] (DEFAULT) [address] [place] [address] Urea nitrogen/Creatinine [Mass ratio] 25 mg/mg Normal [facility] Comment on above: Performed By: #### P TT #### [facility] (DEFAULT) [address] [place] [address] CONTINUOUS CARDIAC MONITORIN G STRIPon 11-20-2023 [facility] Cardiac catheterization stud yon 11-20-2023 Radiology [facility]ative[facility]-2023 Glucose [Mass/Vol] 213 mg/dL High 70 - 99 mg/dL [facility] Interpretation and review of laboratory results Abnormal [facility] POC Sample Type CAPBL [facility] Glucose [Mass/Vol] 200 mg/dL High 70 - 99 mg/dL [facility] Interpretation and review of laboratory results Abnormal [facility] POC Sample Type [facility] Glucose [Mass/Vol] 220 mg/dL High 70 - 99 mg/dL [facility] Interpretation and review of laboratory results Abnormal [facility] POC Sample Type CAPBL [facility] Glucose [Mass/Vol] 217 mg/dL High 70 - 99 mg/dL [facility] Interpretation and review of laboratory results Abnormal [facility] POC Sample Type [facility]BL [facility] Glucose [Mass/Vol] 211 mg/dL High 70 - 99 mg/dL [facility] Interpretation and review of laboratory results Abnormal [facility] POC Sample Type CAPBL [facility] Glucose [Mass/Vol] 186 mg/dL High 70 - 99 mg/dL [facility] Interpretation and review of laboratory results Abnormal [facility] POC Sample Type CAPBL [facility] Glucose [Mass/Vol] 214 mg/dL High 70 - 99 mg/dL [facility] Interpretation and review of laboratory results Abnormal [facility] POC Sample Type VENO [facility] MAGNESIUMon 11-20-2023 Magnesium [Mass/Vol] 2.2 mg/dL 1.6 - 2 .6 mg/dL [facility] Magnesium [Mass/Vol] 2.2 mg/dL Normal 1.6-2.6 [facility] Comment on above: Order Comment: Medic ine Electrolyte Replacement Protocol: Recheck magnesium level eight (8) hours after each 4g Magnesium Sulfate dose if most recent magnesium level is less than 1.3 mg/dL. Draw with next day morning labs after replacements for previous magnesium levels between 1.3-1.9 mg/dL. Performed By: #### T YPEC #### [facility] (DEFAULT) [address] [address] Magnesium [Mass/Vol] 1.6 mg/dL 1.6 - 2 .6 mg/dL [facility] Magnesium [Mass/Vol] 1.6 mg/dL Normal 1.6-2.6 [facility] Comment on above: Performed By: #### P TT #### [facility] (DEFAULT) [address] [place] [address] No Panel Informationon 11-19 Interpretation and review of laboratory results Normal [facility] Interpretation and review of laboratory results Abnormal [facility] Interpretation and review of laboratory results Normal [facility] PHOSPHATE, INORGANICon 11-19 Phosphate [Mass/Vol] 3.2 mg/dL 2.2 - 4 .6 mg/dL [facility] Phosphorous 3.2 mg/dL Normal 2.2-4.6 [facility] Comment on above: Performed By: #### P TT #### [facility] (DEFAULT) [address] [place] [id number] POTASSIUMon 11-20-2023 Potassium [Moles/Vol] 4.2 mmol/L 3.5 - 5.0 mmol/L [facility] Potassium [Moles/Vol] 4.2 mmol/L Normal 3.5-5.0 [facility] Comment on above: Order Comment: Medic ine Electrolyte Replacement Protocol: Recheck eight hours after each 60 mEq dose of Potassium chloride if most recent Potassium is less than 3 mmol/L. Draw with next day morning labs after 40 mEq dose of Potassium chloride. Performed By: #### T YPEC #### [facility] (DEFAULT) [address] [place] [address] PTTon 11-20-2023 aPTT Coag (PPP) [Time] 100.9 s Critically high [facility] Interpretation and review of laboratory results Abnormal [facility] aPTT Coag (Bld) [Time] 100.9 s Critically high 24.0-34. 3 [facility] Comment on above: Result Comment: Spec imen integrity checked. Repeated and verified Performed By: #### L ABHSTI1 #### [facility] (DEFAULT) [address] [place] [address] aPTT Coag (PPP) [Time] 126.0 s High [facility] Interpretation and review of laboratory results Abnormal [facility] aPTT Coag (Bld) [Time] 126.0 s High 24.0-34.3 [facility] Comment on above: Performed By: #### P TT ####[facility] (DEFAULT)[address] [place] [id number] aPTT Coag (PPP) [Time] 109.1 s High OS [facility] Interpretation and review of laboratory results [facility] aPTT Coag (Bld) [Time] 109.1 s High 24.0-34.3 [facility] Comment on above: Performed By: #### L ABHSTI1 #### [facility] (DEFAULT) [address] [place] [address] aPTT Coag (Bld) [Time] 88.2 s High 24.0-34.3 [facility] Comment on above: Performed By: #### T YPEC #### [facility] (DEFAULT) [address] [place] [address] aPTT Coag (Bld) [Time] 57.5 s High 24.0-34.3 [facility] Comment on above: Performed By: #### P TT #### [facility] (DEFAULT) [address] [place] [address] PTTOrdered By: Liane castellanos on 11-20-2023 aPTT Coag (PPP) [Time] 88.2 s High [facility] Interpretation and review of laboratory results Abnormal [facility] PTTOrdered By: Satish Crandall on 11-20-2023 aPTT Coag (PPP) [Time] 57.5 s High [facility] Interpretation and review of laboratory results Abnormal [facility] Portable XR Chest Viewson RADIOLOGY RADIOLOGY [facility] Radiology Study observation (narrative) [facility] Portable XR Chest ViewsOrder ed By: Yuliet Grover on 11-20-2023 [facility] Work Phone: US.doppler Lower extremity v ein - bilateralOrdered By: Etienne Arias on 11-20-2023 [facility] Work Phone: US.doppler Lower extremity v ein - bilateralon 04-15-2024 Radiology Study observation (narrative) [facility] XR CHEST 1 VIEW PORTABLEon 0 11-20-2023 [...] Likely small right effusion. Mild edema. Normal [facility] CALCIUMon 11-19-2023 Calcium [Mass/Vol] 8.4 mg/dL Low 8.6 - 10. 5 mg/dL [facility] Calcium [Mass/Vol] 8.4 mg/dL Low 8.6-10.5 [facility] Comment on above: Performed By: #### P TT #### [facility] (DEFAULT) [address] [place] [address] CBC,PLATELETSon 11-19-2023 Erythrocyte distribution width (RBC) [Ratio] 15.2 % High 10.9 - 14.3 % [facility] Hematocrit (Bld) [Volume fraction] 31.1 % Low 39.6 - 48.8 % [facility] Hemoglobin (Bld) [Mass/Vol] 10.3 g/dL Low 13.4 - 16.8 g/dL [facility] Interpretation and review of laboratory results Abnormal [facility] MCH (RBC) [Entitic mass] 27.9 pg 26.1 - 33.3 pg [facility] MCHC (RBC) [Mass/Vol] 33.1 g/dL 31.9 - 36.5 g/dL [facility] MCV (RBC) [Entitic vol] 84.3 fL 79.0 - 94.5 fL [facility] Platelet mean volume (Bld) [Entitic vol] 11.1 fL 8.7 - 12.3 fL [facility] Platelets (Bld) [#/Vol] 209 10*3/uL 146 - 337 K/uL [facility] RBC (Bld) [#/Vol] 3.69 10*6/uL Low [facility] WBC (Bld) [#/Vol] 9.44 10*3/uL 3.73 - 10.10 K/uL [facility] Hematocrit (Bld) [Volume fraction] 31.1 % Low 39.6-48.8 [facility] Comment on above: Performed By: #### L [id number] #### [facility] (DEFAULT) [address] [address] Hemoglobin (Bld) [Mass/Vol] 10.3 g/dL Low 13.4-16.8 [facility] Comment on above: Performed By: #### L [id number] #### [facility] (DEFAULT) [address] [address] MCV (RBC) [Entitic vol] 84.3 fL Normal 79.0-94.5 [facility] Comment on above: Performed By: #### L [id number] #### [facility] (DEFAULT) [address] [address] Mean Cell Hgb 27.9 pg Normal 26.1-33.3 [facility] Comment on above: Performed By: #### L [id number] #### [facility] (DEFAULT) [address] [address] Mean Cell Hgb Conc 33.1 g/dL Normal 31.9-36.5 [facility] Comment on above: Performed By: #### L [id number] #### [facility] (DEFAULT) [address] [address] Platelet mean volume (Bld) [Entitic vol] 11.1 fL Normal 8.7-12.3 [facility] Comment on above: Performed By: #### L [id number] #### [facility] (DEFAULT) [address] [address] Platelets (Bld) [#/Vol] 209 10*3/uL Normal 146-337 [facility] Comment on above: Performed By: #### L [id number] #### [facility] (DEFAULT) [address] [address] RBC (Bld) [#/Vol] 3.69 10*6/uL Low 4.38-5.83 [facility] Comment on above: Performed By: #### L [id number] #### [facility] (DEFAULT) [address] [address] RBC Distribution 15.2 % High 10.9-14.3 [facility] Comment on above: Performed By: #### L [id number] #### [facility] (DEFAULT) [address] [address] WBC (Bld) [#/Vol] 9.44 10*3/uL Normal 3.73-10.10 [facility] Comment on above: Performed By: #### L [id number] #### [facility] (DEFAULT) [address] [address] CHEM 7 (LYTES,BUN,CREA,GLUC) Ordered By: Brian Velásquez on 11-19-2023 Anion gap [Moles/Vol] 15 mmol/L 7 - 17 mmol/L [facility] Chloride [Moles/Vol] 95 mmol/L Low 98 - 10 8 mmol/L [facility] CO2 [Moles/Vol] 27 mmol/L 21 - 31 mmol/L [facility] Creatinine [Mass/Vol] 0.92 mg/dL 0.70 - 1.30 mg/dL [facility] eGFR, CKD-EPI, Male - PINF [facility] Glucose [Mass/Vol] 304 mg/dL High 70 - 99 mg/dL [facility] Interpretation and review of laboratory results Abnormal [facility] Osmolality Calc [Osmolality] 296 [facility] Potassium [Moles/Vol] 3.9 mmol/L 3.5 - 5.0 mmol/L [facility] Sodium [Moles/Vol] 133 mmol/L Low 135 - 145 mmol/L [facility] Urea nitrogen [Mass/Vol] 22 mg/dL 7 - 25 mg/dL [facility] Urea nitrogen/Creatinine [Mass ratio] 24 mg/mg [facility] CHEM 7 (LYTES,BUN,CREA,GLUC) on 11-19-2023 Anion gap [Moles/Vol] 15 mmol/L Normal 7-17 [facility] Comment on above: Performed By: #### X M #### [facility] (DEFAULT) [address] [address] Chloride [Moles/Vol] 95 mmol/L Low 98-108 [facility] Comment on above: Performed By: #### X M #### [facility] (DEFAULT) [address] [address] CO2 [Moles/Vol] 27 mmol/L Normal 21-31 [facility] Comment on above: Performed By: #### X M #### [facility] (DEFAULT) [address] [address] Creatinine [Mass/Vol] 0.92 mg/dL Normal 0.70-1.30 [facility] Comment on above: Performed By: #### X M #### [facility] (DEFAULT) [address] [address] eGFR, CKD-EPI, Male > Normal >=60 [facility] Comment on above: Result Comment: Repo rted eGFR is based on the CKD-EPI 2020 equation using creatinine, age, and sex. Performed By: #### X M #### [facility] (DEFAULT) [address] [place] [address] Glucose [Mass/Vol] 304 mg/dL High 70-99 [facility] Comment on above: Performed By: #### X M #### [facility] (DEFAULT) [address] [place] [address] Osmolality [Osmolality] 296 mosm/kg Normal 278-305 [facility] Comment on above: Performed By: #### X M #### [facility] (DEFAULT) [address] [place] [address] Potassium [Moles/Vol] 3.9 mmol/L Normal 3.5-5.0 [facility] Comment on above: Performed By: #### X M #### [facility] (DEFAULT) [address] [place] [address] Sodium [Moles/Vol] 133 mmol/L Low 135-145 [facility] Comment on above: Performed By: #### X M #### [facility] (DEFAULT) [address] [place] [address] Urea nitrogen [Mass/Vol] 22 mg/dL Normal 7-25 [facility] Comment on above: Performed By: #### X M #### [facility] (DEFAULT) [address] [place] [address] Urea nitrogen/Creatinine [Mass ratio] 24 mg/mg Normal [facility] Comment on above: Performed By: #### X M #### [facility] (DEFAULT) [address] [place] [address] GLUCOSE POCon 11-19-2023 Glucose [Mass/Vol] 250 mg/dL High 70 - 99 mg/dL [facility] Interpretation and review of laboratory results Abnormal [facility] POC Sample Type CAPBL [facility] Glucose [Mass/Vol] 373 mg/dL High 70 - 99 mg/dL [facility] Interpretation and review of laboratory results Abnormal [facility] POC Sample Type VENO [facility] Glucose [Mass/Vol] 250 mg/dL High 70 - 99 mg/dL [facility] Interpretation and review of laboratory results Abnormal [facility] POC Sample Type CAPBL [facility] Glucose [Mass/Vol] 263 mg/dL High 70 - 99 mg/dL [facility] Interpretation and review of laboratory results Abnormal [facility] POC Sample Type CAPBL [facility] HIGH SENSITIVITY TROPONIN I - SINGLE ORDERon 11-19-2023 Interpretation and review of laboratory results Abnormal [facility] Troponin I.cardiac High sensitivity method [Mass/Vol] 2243 ng/L High NINF - 53 ng/L [facility] hs-Troponin I 2243 ng/L High <53 [facility] Comment on above: Order Comment: Acute Coronary Syndrome (ACS): Initial Evaluation and Management: [email or web address]/Acu te%20Coronary%20Syndrome.pdf#search=troponin Result Comment: Sugg estive of myocardial injury Performed By: #### L [id number] #### [facility] (DEFAULT) [address] [place] [address] Interpretation and review of laboratory results Abnormal [facility] Troponin I.cardiac High sensitivity method [Mass/Vol] 2454 ng/L High NINF - 53 ng/L [facility] hs-Troponin I 2454 ng/L High <53 [facility] Comment on above: Order Comment: Use a [...] injury Performed By: #### L [id number] #### [facility] (DEFAULT) [address] [place] [address] Interpretation and review of laboratory results Abnormal [facility] Troponin I.cardiac High sensitivity method [Mass/Vol] 2583 ng/L High NINF - 53 ng/L [facility] hs-Troponin I 2583 ng/L High <53 [facility] Comment on above: Order Comment: Acute Coronary Syndrome (ACS): Initial Evaluation and Management:[email or web address]/[employer]ines/Acute%20Coronary%20Syndrome.pdf#search=troponin Result Comment: Sugg estive of myocardial injury Performed By: #### L ABHSTI1 ####[facility] (DEFAULT)[address] [place] [address] MAGNESIUMon 11-19-2023 Magnesium [Mass/Vol] 1.4 mg/dL Low 1.6 - 2 .6 mg/dL [facility] Magnesium [Mass/Vol] 1.4 mg/dL Low 1.6-2.6 [facility] Comment on above: Performed By: #### X M #### [facility] (DEFAULT) [address] [place] [address] No Panel Informationon 11-18 Interpretation and review of laboratory results Abnormal [facility] PHOSPHATE, INORGANICon 11-18 Interpretation and review of laboratory results Normal [facility] Phosphate [Mass/Vol] 2.5 mg/dL 2.2 - 4 .6 mg/dL [facility] Phosphorous 2.5 mg/dL Normal 2.2-4.6 [facility] Comment on above: Performed By: #### X M #### [facility] (DEFAULT) [address] [place] [address] PTTOrdered By: Davon Tafoya on 11-19-2023 aPTT Coag (PPP) [Time] 99.1 s High [facility] Interpretation and review of laboratory results Abnormal [facility] PTTon 11-19-2023 aPTT Coag (Bld) [Time] 99.1 s High 24.0-34.3 [facility] Comment on above: Performed By: #### L [id number] #### [facility] (DEFAULT) [address] [place] [address] aPTT Coag (PPP) [Time] 59.9 s High [facility] Interpretation and review of laboratory results Abnormal [facility] aPTT Coag (Bld) [Time] 59.9 s High 24.0-34.3 [facility] Comment on above: Order Comment: After [...] instructions. Performed By: #### P TT #### [facility] (DEFAULT) [address] [place] [address] aPTT Coag (PPP) [Time] 81.0 s High [facility] Interpretation and review of laboratory results Abnormal [facility] aPTT Coag (Bld) [Time] 81.0 s High 24.0-34.3 [facility] Comment on above: Order Comment: After [...] medication administration instructions. Performed By: #### M SANDRA CHM7 #### [facility] (DEFAULT) [address] [place] [address] Portable XR Chest Viewson RADIOLOGY RADIOLOGY [facility] RADIOLOGY RADIOLOGY [facility] PLUS LACTAT Surjit 11-19-2023 Base excess Calc (Bld) [Moles/Vol] 4.8 mmol/L High -3.0 - 3.0 mmol/L [facility] CO2 (Bld) [Partial pressure] 38 mm[Hg] [facility] HCO3 (Bld) [Moles/Vol] 28 mmol/L 22 - 29 mmol/L [facility] Interpretation and review of laboratory results Abnormal [facility] Lactate [Moles/Vol] 1.6 mmol/L 0.5 - 1. 6 mmol/L [facility] Oxygen (Bld) [Partial pressure] 61 mm[Hg] mm Hg [facility] Oxygen saturation in Blood 91 % High 70 - 80 % [facility] pH (Bld) 7.48 [pH] High 7.32 - 7.43 [facility] Specimen source Nom (Unsp spec) Venous [facility] Base Excess 4.8 mmol/L High -3.0-3.0 [facility] Comment on above: Performed By: #### T YPEC #### [facility] (DEFAULT) [address] [place] [address] HCO3 (Bld) [Moles/Vol] 28 mmol/L Normal 22-29 [facility] Comment on above: Performed By: #### T YPEC #### [facility] (DEFAULT) [address] [place] [address] Lactate, Whole Blood 1.6 mmol/L Normal 0.5-1.6 [facility] Comment on above: Performed By: #### T YPEC #### [facility] (DEFAULT) [address] [place] [address] Oxygen saturation in Blood 91 % High 70-80 [facility] Comment on above: Performed By: #### T YPEC #### [facility] (DEFAULT) [address] [place] [address] pCO2, Venous 38 mm Hg Normal 36-52 [facility] Comment on above: Performed By: #### T YPEC #### [facility] (DEFAULT) [address] [place] [address] pH, Venous 7.48 High 7.32-7.43 [facility] Comment on above: Performed By: #### T YPEC #### [facility] (DEFAULT) [address] [place] [address] pO2, Venous 61 mm Hg Normal [facility] Comment on above: Result Comment: Veno us pO2 is not recommended for the evaluation of oxygen status, clinical correlation is recommended. Performed By: #### T YPEC #### [facility] (DEFAULT) [address] [place] [address] Specimen type Nom (Spec) Venous Normal [facility] Comment on above: Performed By: #### T YPEC #### [facility] (DEFAULT) [address] [place] [address] XR CHEST 1 VIEW PORTABLEon 0 11-19-2023 [...] edema and left basilar volume loss. Normal [facility] XR CHEST 1 VIEW PORTABLE EXAM: XR [...] Persistent but improved interstitial pulmonary edema. Normal [facility] ARTERIAL BLOOD GAS PLUS LACT ATEon 11-18-2023 Base excess Calc (Bld) [Moles/Vol] 0.6 mmol/L -3.0 - 3.0 mmol/L [facility] CO2 (Bld) [Partial pressure] 41 mm[Hg] [facility] HCO3 (Bld) [Moles/Vol] 25 mmol/L 22 - 28 mmol/L [facility] Interpretation and review of laboratory results Abnormal [facility] Lactate [Moles/Vol] 1.7 mmol/L High 0.5 - 1. 6 mmol/L [facility] Oxygen (Bld) [Partial pressure] 91 mm[Hg] [facility] Oxygen saturation in Blood 98 % 94 - 98 % [facility] pH (Bld) 7.40 [pH] 7.35 - 7.45 [facility] Specimen source Nom (Unsp spec) Arterial [facility] Base Excess 0.6 mmol/L Normal -3.0-3.0 [facility] Comment on above: Performed By: #### T YPEC #### [facility] (DEFAULT) [address] [address] HCO3 (Bld) [Moles/Vol] 25 mmol/L Normal 22-28 [facility] Comment on above: Performed By: #### T YPEC #### [facility] (DEFAULT) [address] [address] Lactate, Whole Blood 1.7 mmol/L High 0.5-1.6 [facility] Comment on above: Performed By: #### T YPEC #### [facility] (DEFAULT) [address] [place] [address] Oxygen saturation in Blood 98 % Normal 94-98 [facility] Comment on above: Performed By: #### T YPEC #### [facility] (DEFAULT) [address] [place] [address] pCO2 41 mm Hg Normal 32-48 [facility] Comment on above: Performed By: #### T YPEC #### [facility] (DEFAULT) [address] [place] [address] pH, Arterial 7.40 Normal 7.35-7.45 [facility] Comment on above: Performed By: #### T YPEC #### [facility] (DEFAULT) [address] [place] [address] pO2 91 mm Hg Normal 83-108 [facility] Comment on above: Performed By: #### T YPEC #### [facility] (DEFAULT) [address] [place] [address] Specimen type Nom (Spec) Arterial Normal [facility] Comment on above: Performed By: #### T YPEC #### [facility] (DEFAULT) [address] [place] [address] B-TYPE NATRIURETIC PEPTIDE ( BRAIN)on 11-18-2023 Interpretation and review of laboratory results Abnormal [facility] Natriuretic peptide B (Bld) [Mass/Vol] 259 pg/mL High 0 - 100 pg/mL [facility] Natriuretic peptide B (Bld) [Mass/Vol] 259 pg/mL High 0-100 [facility] Comment on above: Performed By: #### T YPEC #### [facility] (DEFAULT) [address] [place] [address] CALCIUMon 11-18-2023 Calcium [Mass/Vol] 8.5 mg/dL Low 8.6 - 10. 5 mg/dL [facility] Calcium [Mass/Vol] 8.5 mg/dL Low 8.6-10.5 [facility] Comment on above: Performed By: #### G ASVL #### [facility] (DEFAULT) [address] [place] [address] CBC,PLATELETSon 11-18-2023 Erythrocyte distribution width (RBC) [Ratio] 15.1 % High 10.9 - 14.3 % [facility] Hematocrit (Bld) [Volume fraction] 35.7 % Low 39.6 - 48.8 % [facility] Hemoglobin (Bld) [Mass/Vol] 11.4 g/dL Low 13.4 - 16.8 g/dL [facility] Interpretation and review of laboratory results Abnormal [facility] MCH (RBC) [Entitic mass] 27.5 pg 26.1 - 33.3 pg [facility] MCHC (RBC) [Mass/Vol] 31.9 g/dL 31.9 - 36.5 g/dL [facility] MCV (RBC) [Entitic vol] 86.0 fL 79.0 - 94.5 fL [facility] Platelet mean volume (Bld) [Entitic vol] 10.7 fL 8.7 - 12.3 fL [facility] Platelets (Bld) [#/Vol] 235 10*3/uL 146 - 337 K/uL [facility] RBC (Bld) [#/Vol] 4.15 10*6/uL Low [facility] WBC (Bld) [#/Vol] 9.69 10*3/uL 3.73 - 10.10 K/uL [facility] Hematocrit (Bld) [Volume fraction] 35.7 % Low 39.6-48.8 [facility] Comment on above: Performed By: #### T YPEC #### [facility] (DEFAULT) [address] [place] [address] Hemoglobin (Bld) [Mass/Vol] 11.4 g/dL Low 13.4-16.8 [facility] Comment on above: Performed By: #### T YPEC #### [facility] (DEFAULT) [address] [address] MCV (RBC) [Entitic vol] 86.0 fL Normal 79.0-94.5 [facility] Comment on above: Performed By: #### T YPEC #### [facility] (DEFAULT) [address] [address] Mean Cell Hgb 27.5 pg Normal 26.1-33.3 [facility] Comment on above: Performed By: #### T YPEC #### [facility] (DEFAULT) [address] [address] Mean Cell Hgb Conc 31.9 g/dL Normal 31.9-36.5 [facility] Comment on above: Performed By: #### T YPEC #### [facility] (DEFAULT) [address] [address] Platelet mean volume (Bld) [Entitic vol] 10.7 fL Normal 8.7-12.3 [facility] Comment on above: Performed By: #### T YPEC #### [facility] (DEFAULT) [address] [address] Platelets (Bld) [#/Vol] 235 10*3/uL Normal 146-337 [facility] Comment on above: Performed By: #### T YPEC #### [facility] (DEFAULT) [address] [address] RBC (Bld) [#/Vol] 4.15 10*6/uL Low 4.38-5.83 [facility] Comment on above: Performed By: #### T YPEC #### [facility] (DEFAULT) [address] [address] RBC Distribution 15.1 % High 10.9-14.3 [facility] Comment on above: Performed By: #### T YPEC #### [facility] [address] [place] [address] WBC (Bld) [#/Vol] 9.69 10*3/uL Normal 3.73-10.10 [facility] Comment on above: Performed By: #### T YPEC #### [facility] (DEFAULT) [address] [place] [address] CHEM 7 (LYTES,BUN,CREA,GLUC) on 11-18-2023 Anion gap [Moles/Vol] 14 mmol/L 7 - 17 mmol/L [facility] Chloride [Moles/Vol] 102 mmol/L 98 - 10 8 mmol/L [facility] CO2 [Moles/Vol] 25 mmol/L 21 - 31 mmol/L [facility] Creatinine [Mass/Vol] 0.81 mg/dL 0.70 - 1.30 mg/dL [facility] eGFR, CKD-EPI, Male - PINF [facility] Glucose [Mass/Vol] 221 mg/dL High 70 - 99 mg/dL [facility] Osmolality Calc [Osmolality] 297 [facility] Potassium [Moles/Vol] 4.1 mmol/L 3.5 - 5.0 mmol/L [facility] Sodium [Moles/Vol] 137 mmol/L 135 - 145 mmol/L [facility] Urea nitrogen [Mass/Vol] 18 mg/dL 7 - 25 mg/dL [facility] Urea nitrogen/Creatinine [Mass ratio] 22 mg/mg [facility] Anion gap [Moles/Vol] 14 mmol/L Normal 7-17 [facility] [facility] Comment on above: Performed By: #### C ANAI Kapadia IPB CHM7 ####[facility] (DEFAULT)[address] [place] [address] Chloride [Moles/Vol] 102 mmol/L Normal 98-108 [facility] Comment on above: Performed By: #### Eduardo Kapadia MGConstance IPB, CHM7 ####[facility] (DEFAULT)[address] [place] [address] CO2 [Moles/Vol] 25 mmol/L Normal 21-31 [facility] Comment on above: Performed By: #### Eduardo Kapadia, MGO, IPB, CHM7 ####[facility] (DEFAULT)[address] [place] [address] Creatinine [Mass/Vol] 0.81 mg/dL Normal 0.70-1.30 [facility] Comment on above: Performed By: #### Eduardo Kapadia, MGO, IPB, CHM7 ####[facility] (DEFAULT)[address] [place] [address] eGFR, CKD-EPI, Male > Normal >=60 [facility] Comment on above: Result Comment: Repo rted eGFR is based on the CKD-EPI 2020 equation using creatinine, age, and sex. Performed By: #### Eduardo Kapadia, MGConstance, IPB, CHM7 ####[facility] (DEFAULT)[address] [place] [address] Glucose [Mass/Vol] 221 mg/dL High 70-99 [facility] Comment on above: Performed By: #### Eduardo Kapadia, MGO, IPB, CHM7 ####[facility] (DEFAULT)[address] [place] [address] Osmolality [Osmolality] 297 mosm/kg Normal 278-305 [facility] Comment on above: Performed By: #### Eduardo Kapadia, MGO, IPB, CHM7 ####[facility] (DEFAULT)[address] [place] [address] Potassium [Moles/Vol] 4.1 mmol/L Normal 3.5-5.0 [facility] Comment on above: Performed By: #### Eduardo Kapadia, MGO, IPB, CHM7 ####[facility] (DEFAULT)[address] [place] [address] Sodium [Moles/Vol] 137 mmol/L Normal 135-145 [facility] Comment on above: Performed By: #### C Steffi, MGO, IPB, CHM7 ####[facility] (DEFAULT)[address] [place] [address] Urea nitrogen [Mass/Vol] 18 mg/dL Normal 7-25 [facility] Comment on above: Performed By: #### C A, MGO, IPB, CHM7 ####[facility] (DEFAULT)[address] [place] [address] Urea nitrogen/Creatinine [Mass ratio] 22 mg/mg Normal [facility] Comment on above: Performed By: #### C A, MGO, IPB, CHM7 ####[facility] (DEFAULT)[address] [place] [address] CONTINUOUS CARDIAC MONITORIN G STRIPon 11-18-2023 [facility] ECGOrdered By: Etienne Stratton on 11-18-2023 [facility] Work Phone: ECGon 11-18-2023 [facility] ECHOCARDIOGRAM LIMITED/FOLLO WUPon 11-18-2023 ECHOCARDIOGRAM LIMITED/FOLLOWUP Limited study. The left ventricular chamber size and systolic function are normal. LVEF 55-60%. Normal LV wall motion. Grade II diastolic dysfunction. The right ventricular chamber size and systolic function are normal. Estimated RVSP 44 mmHg. Table formatting from the original result was not included. Images from the original result were not included. Facility [facility] Patient Information Patient Name Yony Vega Legal [...] Role Read Date Enrique Gonzalez MD Echo Bradford 11/18/2023 Wall Scoring Score Index: 1.00 The [...] spectral Doppler) was performed. Imaging system used: [employer]. Indications Indications for study: abnormal ecg. Exam Details Performed Procedure Technologist Supporting Staff Performing Physician CA ECHOCARDIOGRAM LIMITED/FOLLOWUP W/O 3D Oliver Saldana RDCS Appointment Date/Status Modality Department 11/18/2023 Arrived ECHO TESTING, [facility] ECHOCARDIOGRAPHY ROSS Begin Exam End Exam 11/18/2023 9:02 AM 11/18/2023 10:18 AM Signed at 1041 EDT External Results Report There is an external results report available. Patient Release Status: This result is viewable by the patient in [place]. ECHOCARDIOGRAM LIMITED/FOLLOWUP: Patient Communication Released Not seen ABN Associated with this Order There is no ABN associated with this order. Normal [facility] EXTRA MINT GREEN TOPon 11-17 [facility] GLUCOSE POCon 11-18-2023 Glucose [Mass/Vol] 297 mg/dL High 70 - 99 mg/dL [facility] Interpretation and review of laboratory results Abnormal [facility] POC Sample Type [facility]3] Glucose [Mass/Vol] 252 mg/dL High 70 - 99 mg/dL [facility] Interpretation and review of laboratory results Abnormal [facility] POC Sample Type [facility] Glucose [Mass/Vol] 210 mg/dL High 70 - 99 mg/dL [facility] Interpretation and review of laboratory results Abnormal [facility] POC Sample Type [facility] HIGH SENSITIVITY TROPONIN I - SINGLE ORDEROrdered By: Lorenzo Mcdaniel on 11-18-2023 Interpretation and review of laboratory results Abnormal [facility] Troponin I.cardiac High sensitivity method [Mass/Vol] 3685 ng/L Critically high NINF - 53 ng/L [facility] HIGH SENSITIVITY TROPONIN I - SINGLE ORDERon 11-18-2023 hs-Troponin I 3685 ng/L Critically high <53 [facility] Comment on above: Order Comment: Use [...] injury Performed By: #### L [id number] #### [facility] (DEFAULT) [address] [place] [address] hs-Troponin I 2606 ng/L High <53 [facility] Comment on above: Order Comment: Acute Coronary Syndrome (ACS): Initial Evaluation and Management: [email or web address]/Documents/Guidelines/Acu te%20Coronary%20Syndrome.pdf#search=troponin Result Comment: Sugg estive of myocardial injury Performed By: #### L [id number] #### [facility] (DEFAULT) [address] [place] [address] hs-Troponin I 2276 ng/L High <53 [facility] Comment on above: Order Comment: For i ndwelling catheters, specimen collection is acceptable on catheter day 1 and 2 only. ? Result Comment: Sugg estive of myocardial injury Performed By: #### U [id number] #### [facility] (DEFAULT) [address] [place] [address] hs-Troponin I 96 ng/L High <53 [facility] Comment on above: Order Comment: Use a [...] gloves. Performed By: #### L ABSARS1 #### [facility] (DEFAULT) [address] [place] [address] hs-Troponin I 59 ng/L High <53 [facility] Comment on above: Order Comment: Acute Coronary Syndrome (ACS): Initial Evaluation and Management:[email or web address]/Documents/Rambo delines/Acute%20Coronary%20Syndrome.pdf#search=troponin Performed By: #### T YPEC #### [facility] (DEFAULT) [address] [place] [address] HIGH SENSITIVITY TROPONIN I - SINGLE ORDEROrdered By: Brian Bullard on 11-18-2023 Interpretation and review of laboratory results Abnormal [facility] Troponin I.cardiac High sensitivity method [Mass/Vol] 2606 ng/L High NINF - 53 ng/L [facility] HIGH SENSITIVITY TROPONIN I - SINGLE ORDEROrdered By: Katelin Steel on 11-18-2023 Interpretation and review of laboratory results Abnormal [facility] Troponin I.cardiac High sensitivity method [Mass/Vol] 2276 ng/L High NINF - 53 ng/L [facility] HIGH SENSITIVITY TROPONIN I - SINGLE ORDEROrdered By: Flash Barnes on 11-18-2023 Interpretation and review of laboratory results Abnormal [facility] Troponin I.cardiac High sensitivity method [Mass/Vol] 96 ng/L High NINF - 53 ng/L [facility] HIGH SENSITIVITY TROPONIN I - SINGLE ORDEROrdered By: Jayant Reyes on 11-18-2023 Interpretation and review of laboratory results Abnormal [facility] Troponin I.cardiac High sensitivity method [Mass/Vol] 59 ng/L High NINF - 53 ng/L [facility] MAGNESIUMon 11-18-2023 Magnesium [Mass/Vol] 1.8 mg/dL 1.6 - 2 .6 mg/dL [facility] Magnesium [Mass/Vol] 1.8 mg/dL Normal 1.6-2.6 [facility] Comment on above: Performed By: #### C ANAI Kapadia IPB, CHM7 ####[facility] (DEFAULT)[address] [place] [address] No Panel Informationon 11-17 Interpretation and review of laboratory results Abnormal [facility] Interpretation and review of laboratory results Normal [facility] PHOSPHATE, INORGANICon 11-17 Phosphate [Mass/Vol] 3.2 mg/dL 2.2 - 4 .6 mg/dL [facility] Phosphorous 3.2 mg/dL Normal 2.2-4.6 [facility] Comment on above: Performed By: #### C Steffi MGConstance, IPB, CHM7 ####[facility] (DEFAULT)[address] [place] [address] PLATELET COUNTon 11-18-2023 Interpretation and review of laboratory results Normal [facility] Platelet mean volume (Bld) [Entitic vol] 10.8 fL 8.7 - 12.3 fL [facility] Platelets (Bld) [#/Vol] 200 10*3/uL 146 - 337 K/uL [facility] Platelet mean volume (Bld) [Entitic vol] 10.8 fL Normal 8.7-12.3 [facility] Comment on above: Performed By: #### T YPEC #### [facility] (DEFAULT) [address] [place] [address] Platelets (Bld) [#/Vol] 200 10*3/uL Normal 146-337 [facility] Comment on above: Performed By: #### T YPEC #### [facility] (DEFAULT) [address] [place] [address] PTTon 11-18-2023 aPTT Coag (PPP) [Time] 81.5 s High [facility] Interpretation and review of laboratory results Abnormal [facility] aPTT Coag (Bld) [Time] 81.5 s High 24.0-34.3 [facility] Comment on above: Order Comment: After [...] instructions. Performed By: #### G ASVL #### [facility] (DEFAULT) [address] [place] [address] aPTT Coag (PPP) [Time] 87.6 s High [facility] Interpretation and review of laboratory results Abnormal [facility] aPTT Coag (Bld) [Time] 87.6 s High 24.0-34.3 [facility] Comment on above: Order Comment: After [...] previous results Performed By: #### P TT ####[facility] (DEFAULT)[address] [place] [address] aPTT Coag (Bld) [Time] 32.7 s Normal 24.0-34.3 [facility] Comment on above: Order Comment: Draw prior to initiation of intravenous Heparin. Result Comment: Resu lts inconsistent with previous results Performed By: #### T YPEC #### [facility] (DEFAULT) [address] [place] [address] PTTOrdered By: Lynda Walters on 11-18-2023 aPTT Coag (PPP) [Time] 32.7 s OS [facility] Interpretation and review of laboratory results Normal [facility] Portable XR Chest Viewson Radiology Study observation (narrative) [facility] RADIOLOGY RADIOLOGY [facility] RADIOLOGY RADIOLOGY [facility] Radiology Study observation (narrative) [facility] Radiology Study observation (narrative) [facility] Portable XR Chest ViewsOrder ed By: Pankaj Samaniego on 11-18-2023 [facility] Work Phone: SARS-COV-2 RAPIDon 4 SARS-CoV-2 (COVID-19) RNA ROBIN+probe Ql (Unsp spec) Not detected Normal NOT DETECTED [facility] Comment on above: Order Comment: Use a [...] eye protection, gown, and gloves. Result Comment: [facility] Negative results do not preclude [...] acid. Performed By: #### L [id number] #### [facility] (DEFAULT) [address] [place] [address] SARS-CoV-2 (COVID-19) RNA NA A+probe Ql (Unsp spec)Ordered By: Jane Becerril on 11-18-2023 Interpretation and review of laboratory results Normal [facility] SARS-CoV-2 (COVID-19) RdRp gene ROBIN+probe Ql (Resp) Not detected NOT DETECTED [facility] US Heart limitedon 4 Avg e' pk jesse 0.09 m/s [facility] Avg E/e' ratio 15.16 [facility] Body surface area Derived from formula 1.73 m2 [facility] BP EF 55 % [facility] E wave decelartion time 200.02 msec [facility] e' lateral pk jesse 0.1176 m/s [facility] e' lateral pk jesse 0.12 m/s [facility] e' septal pk jesse 0.0708 m/s [facility] e' septal pk jesse 0.07 m/s [facility] E/A ratio 1.65 [facility] E/e' lateral ratio 11.39 [facility] E/e' septal ratio 18.93 [facility] EF SP 2CH 56 [facility] EF SP 4CH 57 [facility] EST RAP 3.00 mmHg [facility] EST RVSP 44 mmHg [facility] IVC ostium 1.42 cm [facility] LV EDV BP 75 mL [facility] LV EDV SP 2CH 84 mL [facility] LV EDV SP 4CH 67 mL [facility] LV ESV BP 34 mL [facility] LV ESV SP 2CH 37 mL [facility] LV ESV SP 4CH 29 mL [facility] LV stroke volume BP (ml) 41 mL [facility] LV stroke volume index BP 23.70 mL/m2 [facility] MV pk A jesse 0.81 m/s [facility] MV pk E jesse 1.34 m/s [facility] LV BIPLANE SYSTOLIC VOLUME INDEX 19.65 mL/m2 [facility] LV BP DIASTOLIC VOLUME INDEX 43.35 mL/m2 [facility] RV Area diastolic 13.28 cm2 [facility] RV Area systolic 8.35 cm2 [facility] RV basal diam 2.81 cm [facility] RV Fractional area change 37.1 % [facility] RV long diam 7.37 cm [facility] RV mid diam 1.68 cm [facility] RV S' 8.15 cm/s [facility] TAPSE 0.92 cm [facility] TR pk grad 41 mmHg [facility] TR pk jesse 3.20 m/s [facility] UMOUT [facility] Radiology Study observation (narrative) [facility] VENOUS BLOOD GAS PLUS LACTAT Surjit 11-18-2023 Base excess Calc (Bld) [Moles/Vol] 4.0 mmol/L High -3.0 - 3.0 mmol/L [facility] CO2 (Bld) [Partial pressure] 44 mm[Hg] [facility] HCO3 (Bld) [Moles/Vol] 29 mmol/L 22 - 29 mmol/L [facility] Interpretation and review of laboratory results Abnormal [facility] Lactate [Moles/Vol] 2.0 mmol/L High 0.5 - 1. 6 mmol/L [facility] Oxygen (Bld) [Partial pressure] 48 mm[Hg] mm Hg [facility] Oxygen saturation in Blood 79 % 70 - 80 % [facility] pH (Bld) 7.42 [pH] 7.32 - 7.43 [facility] Specimen source Nom (Unsp spec) Venous [facility] Base Excess 4.0 mmol/L High -3.0-3.0 [facility] Comment on above: Performed By: #### T YPEC #### [facility] (DEFAULT) [address] [place] [address] HCO3 (Bld) [Moles/Vol] 29 mmol/L Normal 22-29 [facility] Comment on above: Performed By: #### T YPEC #### [facility] (DEFAULT) [address] [place] [address] Lactate, Whole Blood 2.0 mmol/L High 0.5-1.6 [facility] Comment on above: Result Comment: Lact ate results >/= 2.0 mmol/L should be followed up with a measurement 4 hours later for patients with suspicion of sepsis. Performed By: #### T YPEC #### [facility] (DEFAULT) [address] [place] [address] Oxygen saturation in Blood 79 % Normal 70-80 [facility] Comment on above: Performed By: #### T YPEC #### [facility] (DEFAULT) [address] [place] [address] pCO2, Venous 44 mm Hg Normal 36-52 [facility] Comment on above: Performed By: #### T YPEC #### [facility] (DEFAULT) [address] [place] [address] pH, Venous 7.42 Normal 7.32-7.43 [facility] Comment on above: Performed By: #### T YPEC #### [facility] (DEFAULT) [address] [place] [address] pO2, Venous 48 mm Hg Normal [facility] Comment on above: Result Comment: Veno us pO2 is not recommended for the evaluation of oxygen status, clinical correlation is recommended. Performed By: #### T YPEC #### [facility] (DEFAULT) [address] [place] [address] Specimen type Nom (Spec) Venous Normal [facility] Comment on above: Performed By: #### T YPEC #### [facility] (DEFAULT) [address] [place] [address] Base excess Calc (Bld) [Moles/Vol] 0.6 mmol/L -3.0 - 3.0 mmol/L [facility] CO2 (Bld) [Partial pressure] 46 mm[Hg] [facility] HCO3 (Bld) [Moles/Vol] 26 mmol/L 22 - 29 mmol/L [facility] Interpretation and review of laboratory results Abnormal [facility] Lactate [Moles/Vol] 2.2 mmol/L High 0.5 - 1. 6 mmol/L [facility] Oxygen (Bld) [Partial pressure] 45 mm[Hg] mm Hg [facility] Oxygen saturation in Blood 73 % 70 - 80 % [facility] pH (Bld) 7.36 [pH] 7.32 - 7.43 [facility] Specimen source Nom (Unsp spec) Venous [facility] Base Excess 0.6 mmol/L Normal -3.0-3.0 [facility] Comment on above: Performed By: #### T YPEC #### [facility] (DEFAULT) [address] [place] [address] HCO3 (Bld) [Moles/Vol] 26 mmol/L Normal 22-29 [facility] Comment on above: Performed By: #### T YPEC #### [facility] (DEFAULT) [address] [address] Lactate, Whole Blood 2.2 mmol/L High 0.5-1.6 [facility] Comment on above: Result Comment: Lact ate results >/= 2.0 mmol/L should be followed up with a measurement 4 hours later for patients with suspicion of sepsis. Performed By: #### T YPEC #### [facility] (DEFAULT) [address] [place] [address] Oxygen saturation in Blood 73 % Normal 70-80 [facility] Comment on above: Performed By: #### T YPEC #### [facility] (DEFAULT) [address] [address] pCO2, Venous 46 mm Hg Normal 36-52 [facility] Comment on above: Performed By: #### T YPEC #### [facility] (DEFAULT) [address] [address] pH, Venous 7.36 Normal 7.32-7.43 [facility] Comment on above: Performed By: #### T YPEC #### [facility] (DEFAULT) [address] [address] pO2, Venous 45 mm Hg Normal [facility] Comment on above: Result Comment: Veno us pO2 is not recommended for the evaluation of oxygen status, clinical correlation is recommended. Performed By: #### T YPEC #### [facility] (DEFAULT) [address] [address] Specimen type Nom (Spec) Venous Normal [facility] Comment on above: Performed By: #### T YPEC #### [facility] (DEFAULT) [address] [address] XR CHEST 1 VIEW PORTABLEon 0 11-18-2023 [...] fracture. IMPRESSION: Unchanged interstitial pulmonary edema. Normal [facility] XR CHEST 1 VIEW PORTABLE EXAM: XR CHEST 1 VIEW PORTABLE, 11/18/2023 01:57 AM CLINICAL INDICATIONS: new oxygen needs RELEVANT CLINICAL HISTORY: COMPARISON: November 12, 2023 FINDINGS: Unchanged midline sternal wires. No pneumothorax. New hydrostatic interstitial pulmonary edema. Preserved lung volumes. Degenerative changes in the spine. Unchanged deformity of the proximal left humerus. IMPRESSION: New interstitial pulmonary edema. Normal [facility] CALCIUMon 11-17-2023 Calcium [Mass/Vol] 8.1 mg/dL Low 8.6 - 10. 5 mg/dL [facility] Calcium [Mass/Vol] 8.1 mg/dL Low 8.6-10.5 [facility] Comment on above: Performed By: #### L [id number] #### [facility] (DEFAULT) [facility] [place] [address] CBC,PLATELETSon 11-17-2023 Erythrocyte distribution width (RBC) [Ratio] 14.7 % High 10.9 - 14.3 % [facility] Hematocrit (Bld) [Volume fraction] 33.4 % Low 39.6 - 48.8 % [facility] Hemoglobin (Bld) [Mass/Vol] 10.9 g/dL Low 13.4 - 16.8 g/dL [facility] Interpretation and review of laboratory results Abnormal [facility] MCH (RBC) [Entitic mass] 27.6 pg 26.1 - 33.3 pg [facility] MCHC (RBC) [Mass/Vol] 32.6 g/dL 31.9 - 36.5 g/dL [facility] MCV (RBC) [Entitic vol] 84.6 fL 79.0 - 94.5 fL [facility] Platelet mean volume (Bld) [Entitic vol] 10.4 fL 8.7 - 12.3 fL [facility] Platelets (Bld) [#/Vol] 222 10*3/uL 146 - 337 K/uL [facility] RBC (Bld) [#/Vol] 3.95 10*6/uL Low [facility] WBC (Bld) [#/Vol] 7.19 10*3/uL 3.73 - 10.10 K/uL [facility] Hematocrit (Bld) [Volume fraction] 33.4 % Low 39.6-48.8 [facility] Comment on above: Performed By: #### Bonifacio ARIAS CHM7 #### [facility] (DEFAULT) [address] [place] [address] Hemoglobin (Bld) [Mass/Vol] 10.9 g/dL Low 13.4-16.8 [facility] Comment on above: Performed By: #### Bonifacio ARIAS CHM7 #### [facility] (DEFAULT) [address] [place] [address] MCV (RBC) [Entitic vol] 84.6 fL Normal 79.0-94.5 O [facility] Comment on above: Performed By: #### Bonifacio ARIAS CHM7 #### [facility] (DEFAULT) [address] [place] [address] Mean Cell Hgb 27.6 pg Normal 26.1-33.3 [facility] Comment on above: Performed By: #### Bonifacio ARIAS CHM7 #### [facility] (DEFAULT) [address] [place] [address] Mean Cell Hgb Conc 32.6 g/dL Normal 31.9-36.5 [facility] Comment on above: Performed By: #### Bonifacio ARIAS, CHM7 #### [facility] (DEFAULT) [address] [place] [address] Platelet mean volume (Bld) [Entitic vol] 10.4 fL Normal 8.7-12.3 [facility] Comment on above: Performed By: #### YULISA GOULD7 #### [facility] (DEFAULT) [address] [place] [address] Platelets (Bld) [#/Vol] 222 10*3/uL Normal 146-337 [facility] Comment on above: Performed By: #### Bonifacio ARIAS CHM7 #### [facility] (DEFAULT) [address] [place] [address] RBC (Bld) [#/Vol] 3.95 10*6/uL Low 4.38-5.83 [facility] Comment on above: Performed By: #### Bonifacio ARIAS CHM7 #### [facility] (DEFAULT) [address] [place] [address] RBC Distribution 14.7 % High 10.9-14.3 [facility] Comment on above: Performed By: #### Bonifacio ARIAS CHM7 #### [facility] (DEFAULT) [address] [place] [address] WBC (Bld) [#/Vol] 7.19 10*3/uL Normal 3.73-10.10 [facility] Comment on above: Performed By: #### Bonifacio ARIAS CHM7 #### [facility] (DEFAULT) [address] [place] [address] CHEM 7 (LYTES,BUN,CREA,GLUC) on 11-17-2023 Anion gap [Moles/Vol] 15 mmol/L 7 - 17 mmol/L [facility] Chloride [Moles/Vol] 104 mmol/L 98 - 10 8 mmol/L [facility] CO2 [Moles/Vol] 24 mmol/L 21 - 31 mmol/L [facility] Creatinine [Mass/Vol] 0.68 mg/dL Low 0.70 - 1.30 mg/dL [facility] eGFR, CKD-EPI, Male - PINF [facility] Glucose [Mass/Vol] 99 mg/dL 70 - 99 mg/dL [facility] Osmolality Calc [Osmolality] 292 [facility] Potassium [Moles/Vol] 3.9 mmol/L 3.5 - 5.0 mmol/L [facility] Sodium [Moles/Vol] 139 mmol/L 135 - 145 mmol/L [facility] Urea nitrogen [Mass/Vol] 16 mg/dL 7 - 25 mg/dL [facility] Urea nitrogen/Creatinine [Mass ratio] 24 mg/mg [facility] Anion gap [Moles/Vol] 15 mmol/L Normal 7-17 [facility] Comment on above: Performed By: #### L [id number] #### [facility] (DEFAULT) [address] [place] [address] 62254 Chloride [Moles/Vol] 104 mmol/L Normal 98-108 [facility] Comment on above: Performed By: #### L [id number] #### [facility] (DEFAULT) [address] [place] [address] 11046 CO2 [Moles/Vol] 24 mmol/L Normal 21-31 [facility] Comment on above: Performed By: #### L [id number] #### [facility] (DEFAULT) [address] [place] [address] 46587 Creatinine [Mass/Vol] 0.68 mg/dL Low 0.70-1.30 [facility] Comment on above: Performed By: #### L [id number] #### [facility] (DEFAULT) [address] [place] [address] 41169 eGFR, CKD-EPI, Male > Normal >=60 [facility] Comment on above: Result Comment: Repo rted eGFR is based on the CKD-EPI 2020 equation using creatinine, age, and sex. Performed By: #### L [id number] #### [facility] (DEFAULT) [address] [place] [address] 90501 Glucose [Mass/Vol] 99 mg/dL Normal 70-99 [facility] Comment on above: Performed By: #### L [id number] #### [facility] (DEFAULT) [address] [place] [address] 60411 Osmolality [Osmolality] 292 mosm/kg Normal 278-305 [facility] Comment on above: Performed By: #### L [id number] #### [facility] (DEFAULT) [address] [place] [address] 07984 Potassium [Moles/Vol] 3.9 mmol/L Normal 3.5-5.0 [facility] Comment on above: Performed By: #### L [id number] #### [facility] (DEFAULT) [address] [place] [address] 75691 Sodium [Moles/Vol] 139 mmol/L Normal 135-145 [facility] Comment on above: Performed By: #### L [id number] #### [facility] (DEFAULT) [address] [place] [address] 57719 Urea nitrogen [Mass/Vol] 16 mg/dL Normal 7-25 [facility] Comment on above: Performed By: #### L [id number] #### [facility] (DEFAULT) [address] [place] [address] 42798 Urea nitrogen/Creatinine [Mass ratio] 24 mg/mg Normal [facility] Comment on above: Performed By: #### L [id number] #### [facility] (DEFAULT) [address] [place] [address] 28592 CONTINUOUS CARDIAC MONITORIN G STRIPon 11-17-2023 [facility] GLUCOSE POCon 11-17-2023 Glucose [Mass/Vol] 185 mg/dL High 70 - 99 mg/dL [facility] Interpretation and review of laboratory results Abnormal [facility] POC Sample Type CAPBL [facility] Glucose [Mass/Vol] 239 mg/dL High 70 - 99 mg/dL [facility] Interpretation and review of laboratory results Abnormal [facility] POC Sample Type [facility] Glucose [Mass/Vol] 135 mg/dL High 70 - 99 mg/dL [facility] Interpretation and review of laboratory results Abnormal [facility] POC Sample Type [facility] Glucose [Mass/Vol] 104 mg/dL High 70 - 99 mg/dL [facility] Interpretation and review of laboratory results Abnormal [facility] POC Sample Type CAP[facility] Glucose [Mass/Vol] 100 mg/dL High 70 - 99 mg/dL [facility] Interpretation and review of laboratory results Abnormal [facility] POC Sample Type CAPBL [facility] MAGNESIUMon 11-17-2023 Magnesium [Mass/Vol] 1.2 mg/dL Low 1.6 - 2 .6 mg/dL [facility] Magnesium [Mass/Vol] 1.2 mg/dL Low 1.6-2.6 [facility] Comment on above: Performed By: #### L [id number] #### [facility] (DEFAULT) [address] [place] [address] No Panel Informationon 11-16 Interpretation and review of laboratory results Abnormal [facility] PHOSPHATE, INORGANICon 11-16 Interpretation and review of laboratory results Normal [facility] Phosphate [Mass/Vol] 4.3 mg/dL 2.2 - 4 .6 mg/dL [facility] Phosphorous 4.3 mg/dL Normal 2.2-4.6 [facility] Comment on above: Performed By: #### U [id number] #### [facility] (DEFAULT) [address] [place] [address] 97326 ABORH TYPE RECONFIRMATIONon 11-16-2023 ABO/RH(D) TYPE Negative Normal [facility] Comment on above: Performed By: #### T YPEC #### [facility] (DEFAULT) [address] [address] CBC,PLATELETSon 11-16-2023 Hematocrit (Bld) [Volume fraction] 36.2 % Low 39.6-48.8 [facility] Comment on above: Performed By: #### G ASVL #### [facility] (DEFAULT) [address] [address] Hemoglobin (Bld) [Mass/Vol] 11.7 g/dL Low 13.4-16.8 [facility] Comment on above: Performed By: #### G ASVL #### [facility] (DEFAULT) [address] [address] MCV (RBC) [Entitic vol] 84.6 fL Normal 79.0-94.5 [facility] Comment on above: Performed By: #### G ASVL #### [facility] (DEFAULT) [address] [address] Mean Cell Hgb 27.3 pg Normal 26.1-33.3 [facility] Comment on above: Performed By: #### G ASVL #### [facility] (DEFAULT) [address] [address] Mean Cell Hgb Conc 32.3 g/dL Normal 31.9-36.5 [facility] Comment on above: Performed By: #### G ASVL #### [facility] (DEFAULT) [address] [address] Platelet mean volume (Bld) [Entitic vol] 10.2 fL Normal 8.7-12.3 [facility] Comment on above: Performed By: #### G ASVL #### [facility] (DEFAULT) [address] [address] Platelets (Bld) [#/Vol] 223 10*3/uL Normal 146-337 [facility] Comment on above: Performed By: #### G ASVL #### [facility] (DEFAULT) [address] [place] [address] 13381 RBC (Bld) [#/Vol] 4.28 10*6/uL Low 4.38-5.83 [facility] Comment on above: Performed By: #### G ASVL #### [facility] (DEFAULT) [address] [place] [address] 70325 RBC Distribution 14.8 % High 10.9-14.3 [facility] Comment on above: Performed By: #### G ASVL #### [facility] (DEFAULT) [address] [place] [address] 68408 WBC (Bld) [#/Vol] 6.11 10*3/uL Normal 3.73-10.10 [facility] Comment on above: Performed By: #### G ASVL #### [facility] (DEFAULT) [address] [place] [address] 61592 CHEM 7 (LYTES,BUN,CREA,GLUC) on 11-16-2023 Anion gap [Moles/Vol] 14 mmol/L Normal 7-17 [facility] Comment on above: Performed By: #### T YPEC #### [facility] (DEFAULT) [address] [place] [address] 81763 Chloride [Moles/Vol] 102 mmol/L Normal 98-108 [facility] Comment on above: Performed By: #### T YPEC #### [facility] (DEFAULT) [address] [place] [address] 35266 CO2 [Moles/Vol] 27 mmol/L Normal 21-31 [facility] Comment on above: Performed By: #### T YPEC #### [facility] (DEFAULT) [address] [place] [address] 40434 Creatinine [Mass/Vol] 0.72 mg/dL Normal 0.70-1.30 [facility] Comment on above: Performed By: #### T YPEC #### [facility] (DEFAULT) [address] [place] [address] 20827 eGFR, CKD-EPI, Male > Normal >=60 [facility] Comment on above: Result Comment: Repo rted eGFR is based on the CKD-EPI 1 equation using creatinine, age, and sex. Performed By: #### T YPEC #### [facility] (DEFAULT) [address] [place] [address] 58107 Glucose [Mass/Vol] 144 mg/dL High 70-99 [facility] Comment on above: Performed By: #### T YPEC #### [facility] (DEFAULT) [address] [place] [address] 72830 Osmolality [Osmolality] 294 mosm/kg Normal 278-305 [facility] Comment on above: Performed By: #### T YPEC #### [facility] (DEFAULT) [address] [place] [address] 06600 Potassium [Moles/Vol] 3.5 mmol/L Normal 3.5-5.0 [facility] Comment on above: Performed By: #### T YPEC #### [facility] (DEFAULT) [address] [place] [address] 71586 Sodium [Moles/Vol] 139 mmol/L Normal 135-145 [facility] Comment on above: Performed By: #### T YPEC #### [facility] (DEFAULT) [address] [place] [address] 29232 Urea nitrogen [Mass/Vol] 16 mg/dL Normal 7-25 [facility] Comment on above: Performed By: #### T YPEC #### [facility] (DEFAULT) [address] [place] [address] 31011 Urea nitrogen/Creatinine [Mass ratio] 22 mg/mg Normal [facility] Comment on above: Performed By: #### T YPEC #### [facility] (DEFAULT) [address] [place] [address] 42182 PLATELET P2Y12 INHIBITION TE STon 04-11-2024 Platelet P2Y12 Inhibition Test 169 PRU Low 194-418 [facility] Comment on above: Order Comment: Requi res 2 Special Collection Tubes which Must be Obtained from the Laboratory ( and [facility]), Available in CPA or Call [phone] Result Comment: Test results are reported in [...] (Aggrastat). Performed By: #### G ASVL #### [facility] (DEFAULT) [address] [place] [address] PREPARE TO TRANSFUSE OR RED BLOOD CELLSon 11-16-2023 ABO/RH(D) TYPE Negative [facility] BLOOD COMPONENT TYPE Red Cells, Leukoreduced [facility] EXPIRATION DATE [id number] [facility] Product ABO/RH(D) Negative [facility] Product ABO/RH(D) NUMBER 600 [facility] PRODUCT CODE [id number] [facility] UNIT NUMBER [id number] [facility] UNIT STATUS released [facility] PT,INR,PTTon 11-16-2023 aPTT Coag (Bld) [Time] 46.4 s High 24.0-34.3 [facility] Comment on above: Performed By: #### M ARCENIO ARIAS7 #### [facility] (DEFAULT) [address] [address] INR Coag (PPP) [Relative time] 1.0 {INR} Normal 0.9-1.1 [facility] Comment on above: Performed By: #### M YULISA ARIAS7 #### [facility] (DEFAULT) [address] [address] PT Coag (PPP) [Time] 13.5 s Normal 11.9-14.2 [facility] Comment on above: Performed By: #### M YULISA ARIAS7 #### [facility] (DEFAULT) [address] [address] TYPE AND SCREENon 11-16-2023 ABO/RH(D) TYPE Negative Normal [facility] Comment on above: Performed By: #### X M #### [facility] (DEFAULT) [address] [address] CBC,PLATELETSon 11-15-2023 Hematocrit (Bld) [Volume fraction] 35.9 % Low 39.6-48.8 [facility] Comment on above: Performed By: #### T YPEC #### [facility] (DEFAULT) [address] [address] Hemoglobin (Bld) [Mass/Vol] 11.3 g/dL Low 13.4-16.8 [facility] Comment on above: Performed By: #### T YPEC #### [facility] (DEFAULT) [address] [address] MCV (RBC) [Entitic vol] 84.5 fL Normal 79.0-94.5 [facility] Comment on above: Performed By: #### T YPEC #### [facility] (DEFAULT) [address] [address] Mean Cell Hgb 26.6 pg Normal 26.1-33.3 [facility] Comment on above: Performed By: #### T YPEC #### [facility] (DEFAULT) [address] [place] [address] 14307 Mean Cell Hgb Conc 31.5 g/dL Low 31.9-36.5 [facility] Comment on above: Performed By: #### T YPEC #### [facility] (DEFAULT) [address] [place] [address] 98117 Platelet mean volume (Bld) [Entitic vol] 10.3 fL Normal 8.7-12.3 [facility] Comment on above: Performed By: #### T YPEC #### [facility] (DEFAULT) [address] [place] [address] 46780 Platelets (Bld) [#/Vol] 211 10*3/uL Normal 146-337 [facility] Comment on above: Performed By: #### T YPEC #### [facility] (DEFAULT) [address] [address] RBC (Bld) [#/Vol] 4.25 10*6/uL Low 4.38-5.83 [facility] Comment on above: Performed By: #### T YPEC #### [facility] (DEFAULT) [address] [address] RBC Distribution 14.6 % High 10.9-14.3 [facility] Comment on above: Performed By: #### T YPEC #### [facility] (DEFAULT) [address] [address] WBC (Bld) [#/Vol] 5.80 10*3/uL Normal 3.73-10.10 [facility] Comment on above: Performed By: #### T YPEC #### [facility] (DEFAULT) [address] [place] [address] 12348 CHEM 7 (LYTES,BUN,CREA,GLUC) on 11-15-2023 Anion gap [Moles/Vol] 13 mmol/L Normal 7-17 [facility] Comment on above: Performed By: #### G ASVL #### [facility] (DEFAULT) [address] [place] [address] 22246 Chloride [Moles/Vol] 103 mmol/L Normal 98-108 [facility] Comment on above: Performed By: #### G ASVL #### [facility] (DEFAULT) [address] [place] [address] 59994 CO2 [Moles/Vol] 27 mmol/L Normal 21-31 [facility] Comment on above: Performed By: #### G ASVL #### [facility] (DEFAULT) [address] [place] [address] 45322 Creatinine [Mass/Vol] 0.74 mg/dL Normal 0.70-1.30 [facility] Comment on above: Performed By: #### G ASVL #### [facility] (DEFAULT) [address] [address] eGFR, CKD-EPI, Male > Normal >=60 [facility] Comment on above: Result Comment: Repo rted eGFR is based on the CKD-EPI 2020 equation using creatinine, age, and sex. Performed By: #### G ASVL #### [facility] (DEFAULT) [address] [place] [address] 48431 Glucose [Mass/Vol] 139 mg/dL High 70-99 [facility] Comment on above: Performed By: #### G ASVL #### [facility] (DEFAULT) [address] [address] Osmolality [Osmolality] 295 mosm/kg Normal 278-305 [facility] Comment on above: Performed By: #### G ASVL #### [facility] (DEFAULT) [address] [place] [address] 29135 Potassium [Moles/Vol] 3.5 mmol/L Normal 3.5-5.0 [facility] Comment on above: Performed By: #### G ASVL #### [facility] (DEFAULT) [address] [address] Sodium [Moles/Vol] 139 mmol/L Normal 135-145 [facility] Comment on above: Performed By: #### G ASVL #### [facility] (DEFAULT) [address] [place] [address] 62558 Urea nitrogen [Mass/Vol] 20 mg/dL Normal 7-25 [facility] Comment on above: Performed By: #### G ASVL #### [facility] (DEFAULT) [address] [place] [address] 62750 Urea nitrogen/Creatinine [Mass ratio] 27 mg/mg Normal [facility] Comment on above: Performed By: #### G ASVL #### [facility] (DEFAULT) [address] [place] [address] 59934 CBC,PLATELETSon 11-14-2023 Hematocrit (Bld) [Volume fraction] 37.6 % Low 39.6-48.8 [facility] Comment on above: Performed By: #### T YPEC #### [facility] (DEFAULT) [address] [place] [address] 54613 Hemoglobin (Bld) [Mass/Vol] 12.0 g/dL Low 13.4-16.8 [facility] Comment on above: Performed By: #### T YPEC #### [facility] (DEFAULT) [address] [place] [address] 49875 MCV (RBC) [Entitic vol] 84.5 fL Normal 79.0-94.5 [facility] Comment on above: Performed By: #### T YPEC #### [facility] (DEFAULT) [address] [place] [address] 50666 Mean Cell Hgb 27.0 pg Normal 26.1-33.3 [facility] Comment on above: Performed By: #### T YPEC #### [facility] (DEFAULT) [address] [place] [address] 41763 Mean Cell Hgb Conc 31.9 g/dL Normal 31.9-36.5 [facility] Comment on above: Performed By: #### T YPEC #### [facility] (DEFAULT) [address] [place] [address] 08584 Platelet mean volume (Bld) [Entitic vol] 10.3 fL Normal 8.7-12.3 [facility] Comment on above: Performed By: #### T YPEC #### [facility] (DEFAULT) [address] [place] [address] 21454 Platelets (Bld) [#/Vol] 249 10*3/uL Normal 146-337 [facility] Comment on above: Performed By: #### T YPEC #### [facility] (DEFAULT) [address] [place] [address] 90958 RBC (Bld) [#/Vol] 4.45 10*6/uL Normal 4.38-5.83 [facility] Comment on above: Performed By: #### T YPEC #### [facility] (DEFAULT) [address] [place] [address] 33068 RBC Distribution 14.6 % High 10.9-14.3 [facility] Comment on above: Performed By: #### T YPEC #### [facility] (DEFAULT) [address] [place] [address] 27607 WBC (Bld) [#/Vol] 6.03 10*3/uL Normal 3.73-10.10 [facility] Comment on above: Performed By: #### T YPEC #### [facility] (DEFAULT) [address] [place] [address] 22857 CHEM 7 (LYTES,BUN,CREA,GLUC) on 11-14-2023 Anion gap [Moles/Vol] 14 mmol/L Normal 7-17 [facility] Comment on above: Performed By: #### L [id number] #### [facility] (DEFAULT) [address] [place] [address] 42105 Chloride [Moles/Vol] 101 mmol/L Normal 98-108 [facility] Comment on above: Performed By: #### L [id number] #### [facility] (DEFAULT) [address] [place] [address] 05383 CO2 [Moles/Vol] 29 mmol/L Normal 21-31 [facility] Comment on above: Performed By: #### L [id number] #### [facility] (DEFAULT) [address] [place] [address] 09557 Creatinine [Mass/Vol] 0.86 mg/dL Normal 0.70-1.30 [facility] Comment on above: Performed By: #### L [id number] #### [facility] (DEFAULT) [address] [address] eGFR, CKD-EPI, Male > Normal >=60 [facility] Comment on above: Result Comment: Repo rted eGFR is based on the CKD-EPI 2020 equation using creatinine, age, and sex. Performed By: #### L [id number] #### [facility] (DEFAULT) [address] [address] Glucose [Mass/Vol] 176 mg/dL High 70-99 [facility] Comment on above: Performed By: #### L [id number] #### [facility] (DEFAULT) [address] [address] Osmolality [Osmolality] 299 mosm/kg Normal 278-305 [facility] Comment on above: Performed By: #### L [id number] #### [facility] (DEFAULT) [address] [address] Potassium [Moles/Vol] 3.7 mmol/L Normal 3.5-5.0 [facility] Comment on above: Performed By: #### L [id number] #### [facility] (DEFAULT) [address] [address] Sodium [Moles/Vol] 140 mmol/L Normal 135-145 [facility] Comment on above: Performed By: #### L [id number] #### [facility] (DEFAULT) [address] [place] [address] 35207 Urea nitrogen [Mass/Vol] 18 mg/dL Normal 7-25 [facility] Comment on above: Performed By: #### L [id number] #### [facility] (DEFAULT) [address] [place] [address] Urea nitrogen/Creatinine [Mass ratio] 21 mg/mg Normal [facility] Comment on above: Performed By: #### L [email or web address] #### [facility] (DEFAULT) [address] [place] [address] ECHOCARDIOGRAMon 11-14-2023 Echocardiography Left ventricular siz e, [...] the original result were not included. Facility [facility] Patient Information Patient Name Yony Vega Legal [...] Role Read Date Yousif Kolb DO Echo Bradford 11/14/2023 Left Heart Measurements LV - Systole [...] 1.19 m (more content not included)... Normal [facility] MAGNESIUMon 11-14-2023 Magnesium [Mass/Vol] 1.7 mg/dL Normal 1.6-2.6 [facility] Comment on above: Performed By: #### L ABTI1 #### [facility] (DEFAULT) [address] [place] [address] NUC MYOCARD PERF STRESS MIBI PHARMon 11-14-2023 [...] original result were not included. Facility [facility] Patient Information Patient Name Yoyn Vega Legal Sex Male Indication for Exam [...] shortness of breath during the stress test. 01/14 SOB and 01/14 nausea The patient reached the end of the protocol. Reading Providers Reading Role Read Date Yousif Kolb, ECG Bradford, SPECT Bradford, Test Machine [employer] Presser 11/14/2023 Stress Measurements Baseline Vitals-Supine Baseline HR [...] is norm (more content not included)... Normal [facility] PTTon 11-14-2023 aPTT Coag (Bld) [Time] 42.3 s High 24.0-34.3 [facility] Comment on above: Performed By: #### U [id number] #### [facility] (DEFAULT) [address] [address] aPTT Coag (Bld) [Time] 67.9 s High 24.0-34.3 [facility] Comment on above: Order Comment: Acute Coronary Syndrome (ACS): Initial Evaluation and Management: [email or web address] Performed By: #### L [email or web address] #### [facility] (DEFAULT) [address] [address] aPTT Coag (Bld) [Time] 82.3 s High 24.0-34.3 [facility] Comment on above: Order Comment: For i ndwelling catheters, specimen collection is acceptable on catheter day 1 and 2 only. ? Result Comment: Resu lts inconsistent with previous results Performed By: #### U [id number] #### [facility] (DEFAULT) [address] [place] [address] CBC,PLATELETSon 11-13-2023 Hematocrit (Bld) [Volume fraction] 38.5 % Low 39.6-48.8 [facility] Comment on above: Performed By: #### P TT #### [facility] (DEFAULT) [address] [place] [address]86 Hemoglobin (Bld) [Mass/Vol] 12.4 g/dL Low 13.4-16.8 [facility] Comment on above: Performed By: #### P TT #### [facility] (DEFAULT) [address] [address] MCV (RBC) [Entitic vol] 84.8 fL Normal 79.0-94.5 [facility] Comment on above: Performed By: #### P TT #### [facility] (DEFAULT) [address] [address] Mean Cell Hgb 27.3 pg Normal 26.1-33.3 [facility] Comment on above: Performed By: #### P TT #### [facility] (DEFAULT) [address] [place] [address]892 Mean Cell Hgb Conc 32.2 g/dL Normal 31.9-36.5 [facility] Comment on above: Performed By: #### P TT #### [facility] (DEFAULT) [address] [address] Platelet mean volume (Bld) [Entitic vol] 10.1 fL Normal 8.7-12.3 [facility] Comment on above: Performed By: #### P TT #### [facility] (DEFAULT) [address] [place] [address]34 Platelets (Bld) [#/Vol] 221 10*3/uL Normal 146-337 [facility] Comment on above: Performed By: #### P TT #### [facility] (DEFAULT) [address] [address] RBC (Bld) [#/Vol] 4.54 10*6/uL Normal 4.38-5.83 [facility] Comment on above: Performed By: #### P TT #### [facility] (DEFAULT) [address] [place] [address]242 RBC Distribution 14.6 % High 10.9-14.3 [facility] Comment on above: Performed By: #### P TT #### [facility] (DEFAULT) [address] [address] WBC (Bld) [#/Vol] 4.84 10*3/uL Normal 3.73-10.10 [facility] Comment on above: Performed By: #### P TT #### [facility] (DEFAULT) [address] [address] Hematocrit (Bld) [Volume fraction] 37.7 % Low 39.6-48.8 [facility] Comment on above: Performed By: #### P TT #### [facility] (DEFAULT) [address] [address] Hemoglobin (Bld) [Mass/Vol] 12.3 g/dL Low 13.4-16.8 [facility] Comment on above: Performed By: #### P TT #### [facility] (DEFAULT) [address] [address] MCV (RBC) [Entitic vol] 83.6 fL Normal 79.0-94.5 O [facility] Comment on above: Performed By: #### P TT #### [facility] (DEFAULT) [address] [address] Mean Cell Hgb 27.3 pg Normal 26.1-33.3 [facility] Comment on above: Performed By: #### P TT #### [facility] (DEFAULT) [address] [place] [address] Mean Cell Hgb Conc 32.6 g/dL Normal 31.9-36.5 [facility] Comment on above: Performed By: #### P TT #### [facility] (DEFAULT) [address] [place] [address] Platelet mean volume (Bld) [Entitic vol] 9.8 fL Normal 8.7-12.3 [facility] Comment on above: Performed By: #### P TT #### [facility] (DEFAULT) [address] [place] [address] Platelets (Bld) [#/Vol] 253 10*3/uL Normal 146-337 [facility] Comment on above: Performed By: #### P TT #### [facility] (DEFAULT) [address] [place] [address] RBC (Bld) [#/Vol] 4.51 10*6/uL Normal 4.38-5.83 [facility] Comment on above: Performed By: #### P TT #### [facility] (DEFAULT) [address] [place] [address] RBC Distribution 14.7 % High 10.9-14.3 [facility] Comment on above: Performed By: #### P TT #### [facility] (DEFAULT) [address] [place] [address] WBC (Bld) [#/Vol] 5.38 10*3/uL Normal 3.73-10.10 [facility] Comment on above: Performed By: #### P TT #### [facility] (DEFAULT) [address] [address] CHEM 7 (LYTES,BUN,CREA,GLUC) on 11-13-2023 Anion gap [Moles/Vol] 14 mmol/L Normal 7-17 [facility] Comment on above: Performed By: #### U [id number] #### [facility] (DEFAULT) [address] [place] [address] Chloride [Moles/Vol] 100 mmol/L Normal 98-108 [facility] Comment on above: Performed By: #### U [id number] #### [facility] (DEFAULT) [address] [place] [address] CO2 [Moles/Vol] 30 mmol/L Normal 21-31 [facility] Comment on above: Performed By: #### U [id number] #### [facility] (DEFAULT) [address] [place] [address] Creatinine [Mass/Vol] 0.76 mg/dL Normal 0.70-1.30 [facility] Comment on above: Performed By: #### U [id number] #### [facility] (DEFAULT) [address] [place] [address] eGFR, CKD-EPI, Male > Normal >=60 [facility] Comment on above: Result Comment: Repo rted eGFR is based on the CKD-EPI 2020 equation using creatinine, age, and sex. Performed By: #### U [id number] #### [facility] (DEFAULT) [address] [place] [address] Glucose [Mass/Vol] 215 mg/dL High 70-99 [facility] Comment on above: Performed By: #### U [id number] #### [facility] (DEFAULT) [address] [place] [address] Osmolality [Osmolality] 301 mosm/kg Normal 278-305 [facility] Comment on above: Performed By: #### U [id number] #### [facility] (DEFAULT) [address] [place] [address] Potassium [Moles/Vol] 3.6 mmol/L Normal 3.5-5.0 [facility] Comment on above: Performed By: #### U [id number] #### [facility] (DEFAULT) [address] [place] [address] Sodium [Moles/Vol] 140 mmol/L Normal 135-145 [facility] Comment on above: Performed By: #### U [id number] #### [facility] (DEFAULT) [address] [place] [address] Urea nitrogen [Mass/Vol] 16 mg/dL Normal 7-25 [facility] Comment on above: Performed By: #### U [id number] #### [facility] (DEFAULT) [address] [place] [address] Urea nitrogen/Creatinine [Mass ratio] 21 mg/mg Normal [facility] Comment on above: Performed By: #### U [id number] #### [facility] (DEFAULT) [address] [place] [address] HEMOGLOBIN A1Con 11-13-2023 Glucose [Mass/Vol] 177 mg/dL Normal [facility] Comment on above: Performed By: #### L [id number] #### [facility] (DEFAULT) [address] [place] [address] Hemoglobin A1C HPLC 7.8 % High 4.7-5.6 [facility] Comment on above: Performed By: #### L ABHSTI1 #### [facility] (DEFAULT) [address] [place] [address] HEPATIC FUNCTION PANELon Albumin [Mass/Vol] 3.8 g/dL Normal 3.5-5.0 [facility] Comment on above: Performed By: #### U [id number] #### [facility] (DEFAULT) [address] [place] [address] ALP [Catalytic activity/Vol] 76 U/L Normal 32-126 [facility] Comment on above: Performed By: #### U [id number] #### [facility] (DEFAULT) [address] [place] [address] ALT [Catalytic activity/Vol] 18 U/L Normal 10-52 [facility] Comment on above: Performed By: #### U [id number] #### [facility] (DEFAULT) [address] [place] [address] AST [Catalytic activity/Vol] 26 U/L Normal 10-39 [facility] Comment on above: Performed By: #### U [id number] #### [facility] (DEFAULT) [address] [place] [address] Bilirubin [Mass/Vol] 0.3 mg/dL Normal <1.5 [facility] Comment on above: Performed By: #### U [id number] #### [facility] (DEFAULT) [address] [place] [address] Bilirubin.indirect [Mass/Vol] 0.1 mg/dL Normal <0.3 [facility] Comment on above: Performed By: #### U [id number] #### [facility] (DEFAULT) [address] [place] [address] Protein [Mass/Vol] 6.8 g/dL Normal 6.4-8.3 [facility] Comment on above: Performed By: #### U [id number] #### [facility] (DEFAULT) [address] [place] [address] LIPID PANEL WITH REFLEX TO M RAZIA LDLon 11-13-2023 Calculated LDL Cholesterol 65 mg/dL Normal 0-99 [facility] Comment on above: Result Comment: [<10 0 mg/dL: Optimal] [100-129 mg/dL: Near Optimal] [130-159 mg/dL: Borderline High] [160-189 mg/dL: High] [>189 mg/dL: Very High] Performed By: #### U [id number] #### [facility] (DEFAULT) [address] [place] [address] Cholesterol [Mass/Vol] 150 mg/dL Normal <200 [facility] Comment on above: Result Comment: [<20 0 mg/dL: Desirable] [200-239 mg/dL: Borderline High] [>239 mg/dL: High] Performed By: #### U [id number] #### [facility] (DEFAULT) [address] [place] [address] Cholesterol in HDL [Mass/Vol] 29 mg/dL Low >=40 [facility] Comment on above: Result Comment: [<40 mg/dL: Low (High Risk)] [>59 mg/dL: High (Low Risk)] Performed By: #### U [id number] #### [facility] (DEFAULT) [address] [address] Non HDL Cholesterol 121 mg/dL Normal <130 [facility] Comment on above: Performed By: #### U [id number] #### [facility] (DEFAULT) [address] [address] Total Cholesterol/HDL Ratio 5.2 High <4.5 [facility] Comment on above: Performed By: #### U [id number] #### [facility] (DEFAULT) [address] [address] Triglyceride [Mass/Vol] 279 mg/dL High <150 O [facility] Comment on above: Result Comment: [<15 0 mg/dL: Desirable] [150-199 mg/dL: Borderline] [200-499 mg/dL: High] [>500 mg/dL: Very High] Performed By: #### U [id number] #### [facility] (DEFAULT) [address] [address] PTTon 11-13-2023 aPTT Coag (Bld) [Time] 30.2 s Normal 24.0-34.3 [facility] Comment on above: Order Comment: Draw prior to initiation of intravenous Heparin. Performed By: #### T YPEC #### [facility] (DEFAULT) [address] [address] C REACTIVE PROTEINon 024 CRP [Mass/Vol] 7.90 mg/L Normal <10.00 [facility] Comment on above: Performed By: #### L ABHSTI1 #### [facility] (DEFAULT) [address] [address] CRP [Mass/Vol] 6.55 mg/L Normal <10.00 [facility] Comment on above: Performed By: #### YULISA GOULD7 #### [facility] (DEFAULT) [address] [place] [address] CBC AND ELECTRONIC DIFFon Abs Baso Auto < Normal 0.00-0.09 [facility] Comment on above: Performed By: #### YULISA GOULD7 #### [facility] (DEFAULT) [address] [place] [address] Basophils/100 WBC (Bld) 0.3 % Normal O [facility] Comment on above: Performed By: #### Bonifacio ARIAS CHBonifacio7 #### [facility] (DEFAULT) [address] [place] [address] DIFF STATUS Electronic Differential Normal [facility] Comment on above: Performed By: #### YULISA GOULD7 #### [facility] (DEFAULT) [address] [place] [address] Eosinophils (Bld) [#/Vol] 0.07 10*3/uL Normal 0.00-0.48 [facility] Comment on above: Performed By: #### Bonifacio ARIAS CHM7 #### [facility] (DEFAULT) [address] [place] [address] Eosinophils/100 WBC (Bld) 1.1 % Normal [facility] Comment on above: Performed By: #### Bonifacio ARIAS CHM7 #### [facility] (DEFAULT) [address] [place] [address] Hematocrit (Bld) [Volume fraction] 41.6 % Normal 39.6-48.8 [facility] Comment on above: Performed By: #### Bonifacio ARIAS CHM7 #### [facility] (DEFAULT) [address] [place] [address] Hemoglobin (Bld) [Mass/Vol] 13.4 g/dL Normal 13.4-16.8 [facility] Comment on above: Performed By: #### Bonifacio ARIAS CHM7 #### [facility] (DEFAULT) [address] [address] Immature Grans % 0.2 % Normal [facility] Comment on above: Performed By: #### Bonifacio ARIAS CHM7 #### [facility] (DEFAULT) [address] [address] Immature Grans Absolute < Normal <=0.07 O [facility] Comment on above: Performed By: #### Bonifacio ARIAS CHM7 #### [facility] (DEFAULT) [address] [address] Lymphocytes (Bld) [#/Vol] 1.29 10*3/uL Normal 0.83-3.57 [facility] Comment on above: Performed By: #### YULISA GOULD7 #### [facility] (DEFAULT) [address] [address] Lymphocytes/100 WBC (Bld) 20.7 % Normal [facility] Comment on above: Performed By: #### YULISA GOULD7 #### [facility] (DEFAULT) [address] [address] MCV (RBC) [Entitic vol] 84.2 fL Normal 79.0-94.5 [facility] Comment on above: Performed By: #### Bonifacio ARIAS CHM7 #### [facility] (DEFAULT) [address] [address] Mean Cell Hgb 27.1 pg Normal 26.1-33.3 [facility] Comment on above: Performed By: #### Bonifacio ARIAS CHM7 #### [facility] (DEFAULT) [address] [address] Mean Cell Hgb Conc 32.2 g/dL Normal 31.9-36.5 [facility] Comment on above: Performed By: #### Bonifacio ARIAS CHM7 #### [facility] (DEFAULT) [address] [place] [address] Monocytes (Bld) [#/Vol] 0.70 10*3/uL Normal 0.24-0.93 [facility] Comment on above: Performed By: #### Bonifacio ARIAS CHM7 #### [facility] (DEFAULT) [address] [place] [address] Monocytes/100 WBC (Bld) 11.2 % Normal O [facility] Comment on above: Performed By: #### YULISA GOULD7 #### [facility] (DEFAULT) [address] [place] [address] Nucleated RBC 0.0 /100 WBC Normal <=0.2 [facility] Comment on above: Performed By: #### YULISA GOULD7 #### [facility] (DEFAULT) [address] [place] [address] Platelet mean volume (Bld) [Entitic vol] 9.7 fL Normal 8.7-12.3 [facility] Comment on above: Performed By: #### BAILEY GOULD #### [facility] (DEFAULT) [address] [place] [address] Platelets (Bld) [#/Vol] 265 10*3/uL Normal 146-337 [facility] Comment on above: Performed By: #### Bonifacio ARIAS CHM7 #### [facility] (DEFAULT) [address] [place] [address] RBC (Bld) [#/Vol] 4.94 10*6/uL Normal 4.38-5.83 [facility] Comment on above: Performed By: #### Bonifacio ARIAS CHM7 #### [facility] (DEFAULT) [address] [place] [address] RBC Distribution 14.7 % High 10.9-14.3 [facility] Comment on above: Performed By: #### Bonifacio ARIAS CHM7 #### [facility] (DEFAULT) [address] [place] [address] Segs + Bands Auto 66.5 % Normal [facility] Comment on above: Performed By: #### YULISA GOULD7 #### [facility] (DEFAULT) [address] [place] [address] Segs + Bands,Absolute Auto 4.15 K/uL Normal 1.57-6.19 [facility] Comment on above: Performed By: #### YULISA GOULD7 #### [facility] (DEFAULT) [address] [place] [address] WBC (Bld) [#/Vol] 6.24 10*3/uL Normal 3.73-10.10 [facility] Comment on above: Performed By: #### YULISA GOULD7 #### [facility] (DEFAULT) [address] [place] [address] 7 - EDon 11-12-2023 Anion gap [Moles/Vol] 13 mmol/L Normal 7-17 [facility] Comment on above: Performed By: #### L ABHSTI1 #### [facility] (DEFAULT) [address] [place] [address] Chloride [Moles/Vol] 100 mmol/L Normal 98-108 [facility] Comment on above: Performed By: #### L ABHSTI1 #### [facility] (DEFAULT) [address] [place] [address] CO2 [Moles/Vol] 30 mmol/L Normal 21-31 [facility] Comment on above: Performed By: #### L ABHSTI1 #### [facility] (DEFAULT) [address] [place] [address] Creatinine [Mass/Vol] 0.77 mg/dL Normal 0.70-1.30 [facility] Comment on above: Performed By: #### L ABHSTI1 #### [facility] (DEFAULT) [address] [place] [address] eGFR, CKD-EPI, Male > Normal >=60 [facility] Comment on above: Result Comment: Repo rted eGFR is based on the CKD-EPI 2020 equation using creatinine, age, and sex. Performed By: #### L ABHSTI1 #### [facility] (DEFAULT) [address] [place] [address] Glucose [Mass/Vol] 96 mg/dL Normal 70-99 [facility] Comment on above: Performed By: #### L ABHSTI1 #### [facility] (DEFAULT) [address] [place] [address] Osmolality [Osmolality] 289 mosm/kg Normal 278-305 [facility] Comment on above: Performed By: #### L ABHSTI1 #### [facility] (DEFAULT) [address] [place] [address] Potassium [Moles/Vol] 3.7 mmol/L Normal 3.5-5.0 [facility] Comment on above: Performed By: #### L ABHSTI1 #### [facility] (DEFAULT) [address] [place] [address]78 Sodium [Moles/Vol] 139 mmol/L Normal 135-145 [facility] Comment on above: Performed By: #### L ABHSTI1 #### [facility] (DEFAULT) [address] [place] [address] Urea nitrogen [Mass/Vol] 10 mg/dL Normal 7-25 [facility] Comment on above: Performed By: #### L ABHSTI1 #### [facility] (DEFAULT) [address] [place] [address] 68671 Urea nitrogen/Creatinine [Mass ratio] 13 mg/mg Normal [facility] Comment on above: Performed By: #### L ABHSTI1 #### [facility] (DEFAULT) [address] [place] [address] HEMOGLOBIN A1Con 11-12-2023 Glucose [Mass/Vol] 177 mg/dL Normal [facility] Comment on above: Performed By: #### YULISA GOULD7 #### [facility] (DEFAULT) [address] [address] Hemoglobin A1C HPLC 7.8 % High 4.7-5.6 [facility] Comment on above: Performed By: #### YULISA GOULD7 #### [facility] (DEFAULT) [address] [address] HEPATIC FUNCTION PANELon Albumin [Mass/Vol] 4.0 g/dL Normal 3.5-5.0 [facility] Comment on above: Performed By: #### L ABHSTI1 #### [facility] (DEFAULT) [address] [address] ALP [Catalytic activity/Vol] 94 U/L Normal 32-126 [facility] Comment on above: Performed By: #### L ABHSTI1 #### [facility] (DEFAULT) [address] [address] ALT [Catalytic activity/Vol] 17 U/L Normal 10-52 [facility] Comment on above: Performed By: #### L ABHSTI1 #### [facility] (DEFAULT) [address] [address] AST [Catalytic activity/Vol] 28 U/L Normal 10-39 [facility] Comment on above: Performed By: #### L ABHSTI1 #### [facility] (DEFAULT) [address] [address] Bilirubin [Mass/Vol] 0.5 mg/dL Normal <1.5 [facility] Comment on above: Performed By: #### L ABHSTI1 #### [facility] (DEFAULT) [address] [address] Bilirubin.indirect [Mass/Vol] 0.1 mg/dL Normal <0.3 [facility] Comment on above: Performed By: #### L ABHSTI1 #### [facility] (DEFAULT) [address] [place] [address] Protein [Mass/Vol] 7.1 g/dL Normal 6.4-8.3 [facility] Comment on above: Performed By: #### L ABHSTI1 #### [facility] (DEFAULT) [address] [place] [address] HIGH SENSITIVITY TROPONIN I - SINGLE ORDERon 11-12-2023 hs-Troponin I 22 ng/L Normal <53 [facility] Comment on above: Order Comment: Acute Coronary Syndrome (ACS): Initial Evaluation and Management:[email or web address] Performed By: #### T YPEC #### [facility] (DEFAULT) [address] [place] [address] LIPID PANEL W CALCULATED LDL on 11-12-2023 Calculated LDL Cholesterol 109 mg/dL High 0-99 [facility] Comment on above: Result Comment: [<10 0 mg/dL: Optimal] [100-129 mg/dL: Near Optimal] [130-159 mg/dL: Borderline High] [160-189 mg/dL: High] [>189 mg/dL: Very High] Performed By: #### T YPEC #### [facility] (DEFAULT) [address] [place] [address] Cholesterol [Mass/Vol] 180 mg/dL Normal <200 [facility] Comment on above: Result Comment: [<20 0 mg/dL: Desirable] [200-239 mg/dL: Borderline High] [>239 mg/dL: High] Performed By: #### T YPEC #### [facility] (DEFAULT) [address] [place] [address] Cholesterol in HDL [Mass/Vol] 33 mg/dL Low >=40 [facility] Comment on above: Result Comment: [<40 mg/dL: Low (High Risk)] [>59 mg/dL: High (Low Risk)] Performed By: #### T YPEC #### [facility] (DEFAULT) [address] [place] [address] Non HDL Cholesterol 147 mg/dL High <130 [facility] Comment on above: Performed By: #### T YPEC #### [facility] (DEFAULT) [address] [place] [address] Total Cholesterol/HDL Ratio 5.5 High <4.5 [facility] Comment on above: Performed By: #### T YPEC #### [facility] (DEFAULT) [address] [place] [address] Triglyceride [Mass/Vol] 188 mg/dL High <150 [facility] Comment on above: Result Comment: [<15 0 mg/dL: Desirable] [150-199 mg/dL: Borderline] [200-499 mg/dL: High] [>500 mg/dL: Very High] Performed By: #### T YPEC #### [facility] (DEFAULT) [address] [place] [address] MAGNESIUMon 11-12-2023 Magnesium [Mass/Vol] 1.5 mg/dL Low 1.6-2.6 [facility] Comment on above: Performed By: #### U [id number] #### [facility] (DEFAULT) [address] [place] [address] [facility] MRI BRAIN WITH AND WITHOUT CONTRAST [...] right cerebellum. Multiple remote lacunar infarcts. Normal [facility] SEDIMENTATION RATE, AUTOMATE Don 11-12-2023 ESR Westergren 20 mm/hr High <20 [facility] Comment on above: Performed By: #### X M #### [facility] (DEFAULT) [address] [address] URINALYSIS REFLEX TO CULTURE PERFORMABLEon 11-12-2023 Appearance (U) Clear Normal Clear [facility] Comment on above: Order Comment: For i ndwelling catheters, specimen collection is acceptable on catheter day 1 and 2 only. ? Performed By: #### U [id number] #### [facility] (DEFAULT) [address] [address] Bacteria ABSENT Normal ABSENT [facility] Comment on above: Order Comment: For i ndwelling catheters, specimen collection is acceptable on catheter day 1 and 2 only. ? Performed By: #### U [id number] #### [facility] (DEFAULT) [address] [address] Blood Urine Negative Normal Negative [facility] Comment on above: Order Comment: For i ndwelling catheters, specimen collection is acceptable on catheter day 1 and 2 only. ? Performed By: #### U [id number] #### [facility] (DEFAULT) [address] [place] [address] Color (U) Yellow Normal Yellow [facility] Comment on above: Order Comment: For i ndwelling catheters, specimen collection is acceptable on catheter day 1 and 2 only. ? Performed By: #### U [id number] #### [facility] (DEFAULT) [address] [place] [address] 19484 Glucose Ql (U) >=1000 mg/dL Abnormal Negative [facility] Comment on above: Order Comment: For i ndwelling catheters, specimen collection is acceptable on catheter day 1 and 2 only. ? Performed By: #### U [id number] #### [facility] (DEFAULT) [address] [place] [address] Ketones Ql (U) 15 mg/dL = Small Abnormal Negative [facility] Comment on above: Order Comment: For i ndwelling catheters, specimen collection is acceptable on catheter day 1 and 2 only. ? Performed By: #### U [id number] #### [facility] (DEFAULT) [address] [place] [address] Leukocyte esterase Test strip Ql (U) Negative Normal Negative [facility] Comment on above: Order Comment: For i ndwelling catheters, specimen collection is acceptable on catheter day 1 and 2 only. ? Performed By: #### U [id number] #### [facility] (DEFAULT) [address] [place] [address]130 Nitrites Urine Negative Normal Negative [facility] Comment on above: Order Comment: For i ndwelling catheters, specimen collection is acceptable on catheter day 1 and 2 only. ? Performed By: #### U [id number] #### [facility] (DEFAULT) [address] [place] [address] pH (U) 6.0 [pH] Normal 5.0-7.0 [facility] Comment on above: Order Comment: For i ndwelling catheters, specimen collection is acceptable on catheter day 1 and 2 only. ? Performed By: #### U [id number] #### [facility] (DEFAULT) [address] [address] Protein Urine Trace Abnormal Negative [facility] Comment on above: Order Comment: For i ndwelling catheters, specimen collection is acceptable on catheter day 1 and 2 only. ? Performed By: #### U [id number] #### [facility] (DEFAULT) [address] [address] RBC Urine 0-2 Normal 0-2 [facility] Comment on above: Order Comment: For i ndwelling catheters, specimen collection is acceptable on catheter day 1 and 2 only. ? Performed By: #### U [id number] #### [facility] (DEFAULT) [address] [address] Specific [place] Urine 1.027 Normal 1.001-1.035 O [facility] Comment on above: Order Comment: For i ndwelling catheters, specimen collection is acceptable on catheter day 1 and 2 only. ? Performed By: #### U [id number] #### [facility] (DEFAULT) [address] [address] Squamous/Epithelial Cells 0-2/hpf Normal 0-2/hpf, 3-5/hpf = 1+ [facility] Comment on above: Order Comment: For i ndwelling catheters, specimen collection is acceptable on catheter day 1 and 2 only. ? Performed By: #### U [id number] #### [facility] (DEFAULT) [address] [address] Urobilinogen Urine 0.2 E.U./dL Normal 0.2 E.U/d L, 1.0 E.U/dL [facility] Comment on above: Order Comment: For i ndwelling catheters, specimen collection is acceptable on catheter day 1 and 2 only. ? Performed By: #### U [id number] #### [facility] (DEFAULT) [address] [address] WBC Urine 0 - 5 Normal 0 - 5 [facility] Comment on above: Order Comment: For i ndwelling catheters, specimen collection is acceptable on catheter day 1 and 2 only. ? Performed By: #### U [id number] #### [facility] (DEFAULT) [address] [place] [address] XR CHEST PA AND LATERAL 2 EWSon [...] suggest further evaluation with dedicated radiograph. Normal [facility] Absolute lymphocyte countOrd ered By: Kenzie Britton on 2023 Lymphocytes Auto (Unsp spec) [#/Vol] 1.10 10*3/uL 0.83-4.51 [facility] Activated partial thrombopla stin time (aPTT) in platelet poor plasma by coagulation aOrdered By: Kenzie Britton on 2023 aPTT Coag (PPP) [Time] 49.2 s 24.1-36.2 [facility] Automated lymphocyte count a s percentage of total leukocytesOrdered By: Kenzie Britton on 2023 Lymphocytes/100 WBC Auto (Unsp spec) 19.9 % 19-41 [facility] Basophil percentageOrdered B y: Kenzie Britton on 2023 Basophil percentage 0 SEEN /hpf 0-5 [facility] Basophils/100 WBC (Bld) 0.4 % 0-1 [facility] Bilirubin [Mass/Vol] 0.30 mg/dL 0.20-1.00 [facility] Comment on above: For patients on eltr ombopag therapy, use of Dimension [place] TBIL is not recommended. Chloride [Moles/Vol] 99 mmol/L 98-107 [facility] Eosinophils/100 WBC (Bld) 0.9 % 0-5 [facility] Glucose [Mass/Vol] 155 mg/dL 74-106 [facility] Comment on above: Fasting Glucose resu lt greater than or equal to 126 mg/dL suggests DIABETES MELLITUS per A.D.A. criteria. Hemoglobin (Bld) [Mass/Vol] 12.3 g/dL 13.0-16.5 [facility] Monocytes/100 WBC (Bld) 10.8 % 0-10 [facility] Neutrophils (Bld) [#/Vol] 3.8 10*3/uL 2.0-7.7 [facility] Neutrophils/100 WBC (Bld) 67.8 % 47-70 [facility] Potassium [Moles/Vol] 3.2 mmol/L 3.5-5.1 [facility] Protein [Mass/Vol] 6.9 g/dL 6.4-8.2 [facility] Sodium [Moles/Vol] 138 mmol/L 136-145 [facility] WBC (Bld) [#/Vol] 5.5 10*3/uL 4.4-11.0 [facility] Bilirubin Test strip Ql (U)O rdered By: Kenzie Britton on 2023 Bilirubin Ql (U) Negative Negative [facility] Determination of erythrocyte mean corpuscular volume (MCV)Ordered By: Kenzie Britton on 2023 MCV (RBC) [Entitic vol] 85.4 fL 80-94 [facility] Direct bilirubinOrdered By: Kenzie Britton on 2023 Bilirubin.direct [Mass/Vol] 0.10 mg/dL 0.00-0.30 [facility] Erythrocyte distribution wid th ratioOrdered By: Kenzie Britton on 2023 Erythrocyte distribution width (RBC) [Ratio] 14.6 % 11.6-14.6 [facility] Erythrocyte distribution wid th standard deviationOrdered By: Kenzie Britton on 2023 Erythrocyte distribution width (RBC) [Entitic vol] 45.2 fL 35.1-43.9 [facility] Hematocrit Auto (Bld) [Volum e fraction]Ordered By: Kenzie Britton on 2023 Hematocrit (Bld) [Volume fraction] 38.1 % 40-54 [facility] Immature granulocytes/100 WB C Auto (Bld)Ordered By: Kenzie Britton on 2023 Immature granulocytes/100 WBC (Bld) 0.200 % 0.0-0.9 [facility] Comment on above: IG% - Immature Granu locytes (promyelocytes, myelocytes and metamyelocytes) > 1% indicates that a LEFT SHIFT is Present. Ketones Test strip Ql (U)Ord ered By: Kenzie Britton on 2023 Ketones Ql (U) Negative Negative [facility] Laboratory - Chemistry and C hemistry - challengeOrdered By: Kenzie Britton on 2023 ALP [Catalytic activity/Vol] 94 U/L 45-117 [facility] ALT [Catalytic activity/Vol] 29 U/L 16-61 [facility] CO2 [Moles/Vol] 32.0 mmol/L 21.0-32.0 [facility] Globulin (S) [Mass/Vol] 3.5 g/dL 2.2-4.2 [facility] Urea nitrogen/Creatinine [Mass ratio] 15.2 mg/mg 10-20 [facility] Laboratory - CoagulationOrde red By: Kenzie Britton on 2023 INR Coag (Bld) [Relative time] 1.1 {INR} [facility] PT Coag (PPP) [Time] 13.7 s 11.7-14.9 [facility] Laboratory - Hematology and Cell countsOrdered By: Kenzie Britton on 2023 MCH (RBC) [Entitic mass] 27.6 pg 27.0-32.0 [facility] MCHC (RBC) [Mass/Vol] 32.3 g/dL 32-36 [facility] Nucleated RBC/100 WBC (Bld) [Ratio] 0 % 0-5 [facility] Platelet mean volume (Bld) [Entitic vol] 9.5 fL 6.2-12.0 [facility] Platelets (Bld) [#/Vol] 246 10*3/uL 150-450 [facility] Mucus LM Ql (Urine sed)Order ed By: Kenzie Britton on 2023 Mucus Ql (Urine sed) 0 SEEN /hpf [facility] Nitrite Test strip Ql (U)Ord ered By: Kenzie Britton on 2023 Nitrite Ql (U) Negative Negative [facility] No Panel InformationOrdered By: Kenzie Britton on 2023 Urine RBC 0 SEEN /hpf 0-5 [facility] Estimated Creatinine Clearance Calc 69.55 ml/min [facility] Estimated GFR (MDRD) Amer 98 mL/min >60 [facility] Comment on above: GFR Calc Estimated GFR (MDRD) Non-Af Amer 81 mL/min >60 [facility] Comment on above: Non- GFR Calc Troponin I High Sensitivity 22 pg/mL 3.0-78.0 [facility] Comment on above: Please Note: New [place] Units and Gender Specific Reference Ranges. For more information see Policy Stat Procedure [place] High Sensitivity Troponin (TNIH) and attachments. Protein Test strip Ql (U)Ord ered By: Kenzie Britton on 2023 Protein Ql (U) 15 mg/dl Negative [facility] RBC Auto (Bld) [#/Vol]Ordere d By: Kenzie Britton on 2023 RBC (Bld) [#/Vol] 4.46 10*6/uL 4.6-6.2 [facility] Serum or plasma calcium isael urement (mass/volume)Ordered By: Kenzie Britton on 2023 Calcium [Mass/Vol] 8.1 mg/dL 8.5-10.1 [facility] Serum or plasma creatinine m easurement (mass/volume)Ordered By: Kenzie Britton on 2023 Creatinine [Mass/Vol] 0.99 mg/dL 0.70-1.30 [facility] Comment on above: The validity of the calculated GFR & GFRAA in patients over 70 years has not been determined. Clinical correlation is essential. Serum or plasma urea nitroge n measurement (mass/volume)Ordered By: Kenzie Britton on 2023 Urea nitrogen [Mass/Vol] 15 mg/dL 7-18 [facility] Squamous epithelial cells de tection in urine sediment by light microscopyOrdered By: Kenzie Britton on 2023 Epithelial cells.squamous LM Ql (Urine sed) 0 SEEN /hpf 0-5 [facility] Thin prep Papanicolaou smear with manual screeningOrdered By: Kenzie Britton on 2023 Thin prep Papanicolaou smear with manual screening 3.4 g/dL 3.2-5.0 [facility] Thin prep Papanicolaou smear with manual screening 29 U/L 15-37 [facility] Thin prep Papanicolaou smear with manual screening 7 5-15 [facility] Thin prep Papanicolaou smear with manual screening 153 mg/dL 74-106 [facility] Comment on above: MANAGEMENT OF PATIEN T CARE PER NURSING PROTOCOL Urine blood detectionOrdered By: Kenzie Britton on 2023 RBC Ql (U) Negative Negative [facility] Urine clarityOrdered By: Niko Britton on 2023 Clarity (U) Clear Clear [facility] Urine color determinationOrd ered By: Kenzie Britton on 2023 Color (U) Yellow Yellow [facility] Urine glucose detectionOrder ed By: Kenzie Britton on 2023 Glucose Ql (U) Normal mg/dl Normal [facility] Urine leukocyte esterase det ection by dipstickOrdered By: Kenzie Britton on 2023 Leukocyte esterase Test strip Ql (U) Negative Negative [facility] Urine pHOrdered By: Kenzie ware on 2023 pH (U) 7.0 [pH] 5.0 - 8.0 [facility] Urine sediment bacteria coun t by microscopy (number/high power field)Ordered By: Kenzie Britton on 2023 Bacteria LM.HPF (Urine sed) [#/Area] 0 /[HPF] None Seen [facility] Urine specific gravity measu rementOrdered By: Kenzie Britton on 2023 Specific gravity (U) [Rel density] 1.010 1.002-1.030 [facility] Urine urobilinogen measureme ntOrdered By: Kenzie Britton on 2023 Urobilinogen Ql (U) Normal mg/dl Normal [facility] Basophil percentageOrdered B y: Kendy Modi on 10-16-2023 Cholesterol [Mass/Vol] 132 mg/dL <200 [facility] Comment on above: <200 mg/dL Desirable 200-240 mg/dL Borderline >240 mg/dL High Risk Triglyceride [Mass/Vol] 187 mg/dL <199 [facility] Comment on above: The drugs N-Acetylcy steine and Metamizole may falsely depress this assay.Serum Triglycerides Reference Interval Normal <150 mg/dL Borderline high 150 - 199 mg/dL High 200 - 499 mg/dL Very High > or = 500 mg/dL Laboratory - Chemistry and C hemistry - challengeOrdered By: Kendy Modi on 10-16-2023 Cholesterol in HDL [Mass/Vol] 29 mg/dL >40 [facility] Comment on above: The drugs N-Acetylcy steine and Metamizole may falsely depress this assay. Reference Range HDL <40 mg/dL Low HDL Cholesterol HDL >or= 60 mg/dL High HDL Cholesterol Cholesterol in LDL [Mass/Vol] 66 mg/dL 0-130 [facility] No Panel InformationOrdered By: Kendy Modi on 10-16-2023 Prostate Specific Antigen Screen 1.29 ng/mL 0.00-4.00 [facility] Comment on above: This test was perfor med using the TPSA assay method for the[employer] chemistry system. Values obtained with differentassay methods cannot be used interchangably.When changing PSA assays in the course of monitoring apatient, additional sequential testing should be carriedout to confirm baseline values. VLDL Cholesterol 37 mg/dL 5-40 [facility] Thin prep Papanicolaou smear with manual screeningOrdered By: Kendy Modi on 10-16-2023 Protein (U) [Mass/Vol] 43.3 mg/dL 0.0-11.8 [facility] Urine creatinine measurement (mass/volume)Ordered By: Kendy Modi on 10-16-2023 Creatinine (U) [Mass/Vol] 293.00 mg/dL NO RANGE EST. [facility] Urine protein/creatinine mas s ratioOrdered By: Kendy Modi on 10-16-2023 Protein/Creatinine (U) [Mass ratio] 148 mg/g CRE 0-200 [facility] Absolute lymphocyte countOrd ered By: Catherine Barton on 03-12-2023 Lymphocytes Auto (Unsp spec) [#/Vol] 0.97 10*3/uL 0.83-4.51 [facility] Basophil percentageOrdered B y: Catherine Barton on 03-12-2023 Basophils/100 WBC (Bld) 0.2 % 0-1 [facility] Chloride [Moles/Vol] 102 mmol/L 98-107 [facility] Eosinophils/100 WBC (Bld) 2.1 % 0-5 [facility] Glucose [Mass/Vol] 245 mg/dL 74-106 [facility] Comment on above: Glucose result great er than or equal to 200 mg/dLsuggests DIABETES MELLITUS per A.D.A. criteria. Neutrophils (Bld) [#/Vol] 2.7 10*3/uL 2.0-7.7 [facility] Neutrophils/100 WBC (Bld) 62.5 % 47-70 [facility] Potassium [Moles/Vol] 4.0 mmol/L 3.5-5.1 [facility] Sodium [Moles/Vol] 137 mmol/L 136-145 [facility] WBC (Bld) [#/Vol] 4.3 10*3/uL 4.4-11.0 [facility] Blood erythrocytes count (nu mber/volume)Ordered By: Catherine Barton on 03-12-2023 RBC (Bld) [#/Vol] 4.60 10*6/uL 4.6-6.2 [facility] Blood hemoglobin measurement (mass/volume)Ordered By: Catherine Barton on 03-12-2023 Hemoglobin (Bld) [Mass/Vol] 12.5 g/dL 13.0-16.5 [facility] Blood lymphocytes/100 leukoc ytesOrdered By: Catherine Barton on 03-12-2023 Lymphocytes/100 WBC (Bld) 22.8 % 19-41 [facility] Blood monocytes/100 leukocyt esOrdered By: Catherine Barton on 03-12-2023 Monocytes/100 WBC (Bld) 12.2 % 0-10 [facility] Blood platelet mean volumeOr dered By: Catherine Barton on 03-12-2023 Platelet mean volume (Bld) [Entitic vol] 9.4 fL 6.2-12.0 [facility] Determination of erythrocyte mean corpuscular volume (MCV)Ordered By: Catherine Barton on 03-12-2023 MCV (RBC) [Entitic vol] 86.1 fL 80-94 [facility] Glucose Glucometer (BldC) [M ass/Vol]Ordered By: Catherine Barton on 03-12-2023 Glucose [Mass/Vol] 303 mg/dL 74-106 [facility] Comment on above: MANAGEMENT OF PATIEN T CARE PER NURSING PROTOCOL Hematocrit Auto (Bld) [Volum e fraction]Ordered By: Catherine Barton on 03-12-2023 Hematocrit (Bld) [Volume fraction] 39.6 % 40-54 [facility] - Chemistry and C hemistry - challengeOrdered By: Catherine Barton on 03-12-2023 CO2 [Moles/Vol] 30.0 mmol/L 21.0-32.0 [facility] Urea nitrogen/Creatinine [Mass ratio] 15.2 mg/mg 10-20 [facility] - Hematology and Cell countsOrdered By: Catherine Barton on 03-12-2023 Erythrocyte distribution width (RBC) [Entitic vol] 43.8 fL 35.1-43.9 [facility] Erythrocyte distribution width (RBC) [Ratio] 14.1 % 11.6-14.6 [facility] Immature granulocytes/100 WBC (Bld) 0.200 % 0.0-0.9 [facility] Comment on above: IG% - Immature Granu locytes (promyelocytes, myelocytes and metamyelocytes) > 1% indicates that a LEFT SHIFT is Present. MCH (RBC) [Entitic mass] 27.2 pg 27.0-32.0 [facility] Nucleated RBC/100 WBC (Bld) [Ratio] 0 % 0-5 [facility] MCHC Auto (RBC) [Mass/Vol]Or dered By: Catherine Barton on 03-12-2023 MCHC (RBC) [Mass/Vol] 31.6 g/dL 32-36 [facility] No Panel InformationOrdered By: Catherine Barton on 03-12-2023 Estimated Creatinine Clearance Calc 74.84 ml/min [facility] Estimated GFR (MDRD) Amer 106 mL/min >60 [facility] Comment on above: GFR Calc Estimated GFR (MDRD) Non-Af Amer 88 mL/min >60 [facility] Comment on above: Non- GFR Calc Platelets bldOrdered By: Olivia Barton on 03-12-2023 Platelets (Bld) [#/Vol] 237 10*3/uL 150-450 [facility] Serum or plasma calcium isael urement (mass/volume)Ordered By: Catherine Barton on 03-12-2023 Calcium [Mass/Vol] 9.0 mg/dL 8.5-10.1 [facility] Serum or plasma creatinine m easurement (mass/volume)Ordered By: Catherine Barton on 03-12-2023 Creatinine [Mass/Vol] 0.92 mg/dL 0.70-1.30 [facility] Comment on above: The validity of the calculated GFR & GFRAA in patients over 70 years has not been determined. Clinical correlation is essential. Serum or plasma urea nitroge n measurement (mass/volume)Ordered By: Catherine Barton on 03-12-2023 Urea nitrogen [Mass/Vol] 14 mg/dL 7-18 [facility] Thin prep Papanicolaou smear with manual screeningOrdered By: Catherine Barton on 03-12-2023 Thin prep Papanicolaou smear with manual screening 5 5-15 [facility] Whole blood hemoglobin A1c/t otal hemoglobin ratio (mass fraction)Ordered By: Catherine Barton on 03-12-2023 HbA1c (Bld) [Mass fraction] 8.4 % 3.8-5.6 [facility] Comment on above: Normal < 5.7 % Predi abetic 5.7 - 6.4 % Diabetic >or= 6.5 % Please note range changes. Absolute lymphocyte countOrd ered By: Citlali Zurita on 03-10-2023 Lymphocytes Auto (Unsp spec) [#/Vol] 0.86 10*3/uL 0.83-4.51 [facility] Basophil percentageOrdered B y: Citlali Zurita on 03-10-2023 Basophil percentage 0 SEEN /hpf 0-5 [facility] Basophils/100 WBC (Bld) 0.5 % 0-1 [facility] Chloride [Moles/Vol] 104 mmol/L 98-107 [facility] Eosinophils/100 WBC (Bld) 0.5 % 0-5 [facility] Glucose [Mass/Vol] 141 mg/dL 74-106 [facility] Comment on above: Fasting Glucose resu lt greater than or equal to 126 mg/dL suggests DIABETES MELLITUS per A.D.A. criteria. Neutrophils (Bld) [#/Vol] 6.4 10*3/uL 2.0-7.7 [facility] Neutrophils/100 WBC (Bld) 79.4 % 47-70 [facility] Potassium [Moles/Vol] 4.3 mmol/L 3.5-5.1 [facility] Sodium [Moles/Vol] 139 mmol/L 136-145 [facility] WBC (Bld) [#/Vol] 8.1 10*3/uL 4.4-11.0 [facility] Basophil percentageOrdered B y: Matt Zohaib on 03-10-2023 Basophil percentage 4.9 mg/dL 2.5-4.9 [facility] Bilirubin Test strip Ql (U)O rdered By: Citlali Zurita on 03-10-2023 Bilirubin Ql (U) Negative Negative [facility] Blood erythrocytes count (nu mber/volume)Ordered By: Citlali Zurita on 03-10-2023 RBC (Bld) [#/Vol] 4.64 10*6/uL 4.6-6.2 [facility] Blood hemoglobin measurement (mass/volume)Ordered By: Citlali Zurita on 03-10-2023 Hemoglobin (Bld) [Mass/Vol] 13.0 g/dL 13.0-16.5 [facility] Blood lymphocytes/100 leukoc ytesOrdered By: Citlali Zurita on 03-10-2023 Lymphocytes/100 WBC (Bld) 10.6 % 19-41 [facility] Blood monocytes/100 leukocyt esOrdered By: Citlali Zurita on 03-10-2023 Monocytes/100 WBC (Bld) 8.5 % 0-10 [facility] Blood platelet mean volumeOr dered By: Citlali Zurita on 03-10-2023 Platelet mean volume (Bld) [Entitic vol] 9.4 fL 6.2-12.0 [facility] Determination of erythrocyte mean corpuscular volume (MCV)Ordered By: Citlali Zurita on 03-10-2023 MCV (RBC) [Entitic vol] 87.5 fL 80-94 [facility] Hematocrit Auto (Bld) [Volum e fraction]Ordered By: Citlali Zurita on 03-10-2023 Hematocrit (Bld) [Volume fraction] 40.6 % 40-54 [facility] Ketones Test strip Ql (U)Ord ered By: Citlali Zurita on 03-10-2023 Ketones Ql (U) Negative Negative [facility] Laboratory - Chemistry and C hemistry - challengeOrdered By: Citlali Zurita on 03-10-2023 CO2 [Moles/Vol] 31.0 mmol/L 21.0-32.0 [facility] Urea nitrogen/Creatinine [Mass ratio] 17.2 mg/mg 10-20 [facility] Laboratory - Chemistry and C hemistry - challengeOrdered By: Matt Penny on 03-10-2023 Magnesium [Mass/Vol] 1.8 mg/dL 1.6-2.6 [facility] Laboratory - Hematology and Cell countsOrdered By: Citlali Zurita on 03-10-2023 Erythrocyte distribution width (RBC) [Entitic vol] 45.3 fL 35.1-43.9 [facility] Erythrocyte distribution width (RBC) [Ratio] 14.2 % 11.6-14.6 [facility] Immature granulocytes/100 WBC (Bld) 0.500 % 0.0-0.9 [facility] Comment on above: IG% - Immature Granu locytes (promyelocytes, myelocytes and metamyelocytes) > 1% indicates that a LEFT SHIFT is Present. MCH (RBC) [Entitic mass] 28.0 pg 27.0-32.0 [facility] Nucleated RBC/100 WBC (Bld) [Ratio] 0 % 0-5 [facility] MCHC Auto (RBC) [Mass/Vol]Or dered By: Citlali Zurita on 03-10-2023 MCHC (RBC) [Mass/Vol] 32.0 g/dL 32-36 [facility] Mucus LM Ql (Urine sed)Order ed By: Citlali Zurita on 03-10-2023 Mucus Ql (Urine sed) 0 SEEN /hpf [facility] Nitrite Test strip Ql (U)Ord ered By: Citlali Zurita on 03-10-2023 Nitrite Ql (U) Negative Negative [facility] No Panel InformationOrdered By: Citlali Zurita on 03-10-2023 Estimated Creatinine Clearance Calc 59.36 ml/min [facility] Estimated GFR (MDRD) Amer 81 mL/min >60 [facility] Comment on above: GFR Calc Estimated GFR (MDRD) Non-Af Amer 67 mL/min >60 [facility] Comment on above: Non- GFR Calc Troponin I High Sensitivity 12 pg/mL 3.0-78.0 [facility] Comment on above: Please Note: New [place] t Units and Gender Specific Reference Ranges. For more information see Policy Stat Procedure [place] High Sensitivity Troponin (TNIH) and attachments. Platelets bldOrdered By: Mary Ann Zurita on 03-10-2023 Platelets (Bld) [#/Vol] 295 10*3/uL 150-450 [facility] Protein Test strip Ql (U)Ord ered By: Citlali Zurita on 03-10-2023 Protein Ql (U) 15 mg/dl Negative [facility] Serum or plasma calcium isael urement (mass/volume)Ordered By: Citlali Zurita on 03-10-2023 Calcium [Mass/Vol] 8.8 mg/dL 8.5-10.1 [facility] Serum or plasma creatinine m easurement (mass/volume)Ordered By: Citlali Zurita on 03-10-2023 Creatinine [Mass/Vol] 1.16 mg/dL 0.70-1.30 [facility] Comment on above: The validity of the calculated GFR & GFRAA in patients over 70 years has not been determined. Clinical correlation is essential. Serum or plasma urea nitroge n measurement (mass/volume)Ordered By: Citlali Zurita on 03-10-2023 Urea nitrogen [Mass/Vol] 20 mg/dL 7-18 [facility] Squamous epithelial cells de tection in urine sediment by light microscopyOrdered By: Citlali Zurita on 03-10-2023 Epithelial cells.squamous LM Ql (Urine sed) 0 SEEN /hpf 0-5 [facility] Thin prep Papanicolaou smear with manual screeningOrdered By: Citlali Zurita on 03-10-2023 Thin prep Papanicolaou smear with manual screening 4 5-15 [facility] Urine blood detectionOrdered By: Citlali Zurita on 03-10-2023 RBC Ql (U) Negative Negative [facility] RBC Ql (U) 0 SEEN /hpf 0-5 [facility] Urine clarityOrdered By: Mary Ann Zurita on 03-10-2023 Clarity (U) Clear Clear [facility] Urine color determinationOrd ered By: Citlali Zurita on 03-10-2023 Color (U) Yellow Yellow [facility] Urine glucose detectionOrder ed By: Citlali Zurita on 03-10-2023 Glucose Ql (U) 50 mg/dl Normal [facility] Urine leukocyte esterase det ection by dipstickOrdered By: Citlali Zurita on 03-10-2023 Leukocyte esterase Test strip Ql (U) Negative Negative [facility] Urine pHOrdered By: Citlali Zurita on 03-10-2023 pH (U) 6.0 [pH] 5.0 - 8.0 [facility] Urine sediment bacteria coun t by microscopy (number/high power field)Ordered By: Citlali Zurita on 03-10-2023 Bacteria LM.HPF (Urine sed) [#/Area] 0 /[HPF] None Seen [facility] Urine specific gravity measu rementOrdered By: Citlali Zurita on 03-10-2023 Specific gravity (U) [Rel density] 1.015 1.002-1.030 [facility] Urobilinogen Auto test strip Ql (U)Ordered By: Citlali Zurita on 03-10-2023 Urobilinogen Ql (U) Normal mg/dl Normal [facility] No Panel InformationOrdered By: Dr. Modi on 10-07-2022 Urine Microalbumin/Creatinine Ratio 20.5 mg/g CRE <30 [facility] Thin prep Papanicolaou smear with manual screeningOrdered By: Dr. Modi on 10-07-2022 Thin prep Papanicolaou smear with manual screening 56.5 mg/L NO RANGE EST. [facility] Urine creatinine measurement (mass/volume)Ordered By: Dr. Modi on 10-07-2022 Creatinine (U) [Mass/Vol] 276.00 mg/dL NO RANGE EST. [facility] Basophil percentageOrdered B y: Dr. Modi on 10-05-2022 Bilirubin [Mass/Vol] 0.20 mg/dL 0.20-1.00 [facility] Comment on above: For patients on eltr ombopag therapy, use of Dimension [place] TBIL is not recommended. Chloride [Moles/Vol] 102 mmol/L 98-107 [facility] Cholesterol [Mass/Vol] 161 mg/dL <200 [facility] Comment on above: <200 mg/dL Desirable 200-240 mg/dL Borderline >240 mg/dL High Risk Glucose [Mass/Vol] 111 mg/dL 74-106 [facility] Comment on above: Fasting Glucose resu lt from 100 to 125 mg/dL suggests IMPAIRED HOMEOSTASIS per A.D.A. criteria. Potassium [Moles/Vol] 3.9 mmol/L 3.5-5.1 [facility] Protein [Mass/Vol] 7.3 g/dL 6.4-8.2 [facility] Sodium [Moles/Vol] 138 mmol/L 136-145 [facility] Triglyceride [Mass/Vol] 186 mg/dL <199 [facility] Comment on above: The drugs N-Acetylcy steine and Metamizole may falsely depress this assay.Serum Triglycerides Reference Interval Normal <150 mg/dL Borderline high 150 - 199 mg/dL High 200 - 499 mg/dL Very High > or = 500 mg/dL Direct bilirubinOrdered By: Dr. Modi on 10-05-2022 Bilirubin.direct [Mass/Vol] 0.10 mg/dL 0.00-0.30 [facility] Laboratory - Chemistry and C hemistry - challengeOrdered By: Dr. Modi on 10-05-2022 ALP [Catalytic activity/Vol] 107 U/L 45-117 [facility] ALT [Catalytic activity/Vol] 35 U/L 16-61 [facility] CO2 [Moles/Vol] 27.0 mmol/L 21.0-32.0 [facility] Globulin (S) [Mass/Vol] 3.9 g/dL 2.2-4.2 [facility] Urea nitrogen/Creatinine [Mass ratio] 24.0 mg/mg 10-20 [facility] No Panel InformationOrdered By: Dr. Modi on 10-05-2022 Estimated GFR (MDRD) Amer 107 mL/min >60 [facility] Comment on above: GFR Calc Estimated GFR (MDRD) Non-Af Amer 88 mL/min >60 [facility] Comment on above: Non- GFR Calc Prostate Specific Antigen Screen 0.92 ng/mL 0.00-4.00 [facility] Comment on above: This test was perfor med using the TPSA assay method for [employer] chemistry system. Values obtained with differentassay methods cannot be used interchangably.When changing PSA assays in the course of monitoring apatient, additional sequential testing should be carriedout to confirm baseline values. Serum or plasma albumin isael urement (mass/volume)Ordered By: Dr. Modi on 10-05-2022 Albumin [Mass/Vol] 3.4 g/dL 3.2-5.0 [facility] Serum or plasma calcium isael urement (mass/volume)Ordered By: Dr. Modi on 10-05-2022 Calcium [Mass/Vol] 8.8 mg/dL 8.5-10.1 [facility] Serum or plasma cholesterol in HDL measurement (mass/volume)Ordered By: Dr. Modi on 10-05-2022 Cholesterol in HDL [Mass/Vol] 30 mg/dL >40 [facility] Comment on above: The drugs N-Acetylcy steine and Metamizole may falsely depress this assay. Reference Range HDL <40 mg/dL Low HDL Cholesterol HDL >or= 60 mg/dL High HDL Cholesterol Serum or plasma cholesterol in VLDL measurement (mass/volume)Ordered By: Dr. Modi on 10-05-2022 Cholesterol in VLDL [Mass/Vol] 37 mg/dL 5-40 [facility] Serum or plasma creatinine m easurement (mass/volume)Ordered By: Dr. Modi on 10-05-2022 Creatinine [Mass/Vol] 0.92 mg/dL 0.70-1.30 [facility] Comment on above: The validity of the calculated GFR & GFRAA in patients over 70 years has not been determined. Clinical correlation is essential. Serum or plasma low density lipoprotein (LDL) cholesterol measurement (mass/volume)Ordered By: Dr. Modi on 10-05-2022 Cholesterol in LDL [Mass/Vol] 94 mg/dL 0-130 [facility] Serum or plasma urea nitroge n measurement (mass/volume)Ordered By: Dr. Modi on 10-05-2022 Urea nitrogen [Mass/Vol] 22 mg/dL 7-18 [facility] Thin prep Papanicolaou smear with manual screeningOrdered By: Dr. Modi on 10-05-2022 Thin prep Papanicolaou smear with manual screening 34 U/L 15-37 [facility] Thin prep Papanicolaou smear with manual screening 9 5-15 [facility] ALLIED HEALTHon 03-15-2022 ALLIED HEALTH HNO ID: [id number] Author: MARLENE Camilo Service: Radiology Author Type: Engineering Scientist Type: Allied Health Filed: 03/15/2022 2:56 PM [...] MARLENE Camilo March 15, 2022 2:54 PM [facility] CREATININE, BLOOD (POC)on Creatinine [Mass/Vol] 0.90 mg/dL 0.58 - 1.22 mg/dL [facility] eGFR (POCT) [facility] MRI LIVER (EOVIST) WO/W IVCO Non 03-15-2022 MRI LIVER (EOVIST) WO/W IVCON * * *Final Report* * * DATE OF EXAM: Mar 15 2022 3:15PM [facility] 2175 - MRI LIVER (EOVIST) WO/W IVCON / PROCEDURE REASON: multiple diagnoses * * * * Physician Interpretation * * * * MRI OF THE ABDOMEN WITHOUT AND WITH CONTRAST: CLINICAL HISTORY: History of rectal cancer, abnormal CT, liver lesion COMPARISON: None. TECHNIQUE: Siemens 1.5 T Avanto scanner. Using the torso phased array coil, axial STIR and T1 weighted in- and tti-cx-boywl images were obtained. Then, using a 3-D [...] fatty infiltration. Recommend continued attention on follow-up. Supervisor Photocomposition: [facility] Transcribe Date/Time: Mar 15 2022 3:38P Dictated by : CHANTE ORTA MD This examination was interpreted and the report reviewed and electronically signed by: CHANTE ORTA MD on Mar 15 2022 4:18PM EST [id number] Normal [facility] CT ABD/PEL W IVCONon 022 Radiology Result ACTIONABLE Abnormal [facility] CT CHEST W IVCONon [address] [facility] Basophil percentageon 2021 Bilirubin [Mass/Vol] 0.20 mg/dL 0.20-1.00 [facility] Work Phone: Comment on above: For patients on eltr ombopag therapy, use of Dimension [place] TBIL is not recommended. Cholesterol [Mass/Vol] 146 mg/dL <200 [facility] Work Phone: Comment on above: <200 mg/dL Desirable 200-240 mg/dL Borderline >240 mg/dL High Risk Protein [Mass/Vol] 7.4 g/dL 6.4-8.2 [facility] Work Phone: Triglyceride [Mass/Vol] 185 mg/dL [facility] Work Phone: Comment on above: The drugs N-Acetylcy steine and Metamizole may falsely depress this assay.Serum Triglycerides Reference Interval Normal <150 mg/dL Borderline high 150 - 199 mg/dL High 200 - 499 mg/dL Very High > or = 500 mg/dL Direct bilirubinon Bilirubin.direct [Mass/Vol] 0.09 mg/dL 0.00-0.30 [facility] Work Phone: [phone] Laboratory - Chemistry and C hemistry - challengeon 10-27-2021 ALP [Catalytic activity/Vol] 108 U/L 45-117 [facility] Work Phone: ALT [Catalytic activity/Vol] 33 U/L 16-61 [facility] Work Phone: Globulin (S) [Mass/Vol] 4.0 g/dL 2.2-4.2 [facility] Work Phone: Serum or plasma albumin isael urement (mass/volume)on 10-27-2021 Albumin [Mass/Vol] 3.4 g/dL 3.2-5.0 [facility] Work Phone: Serum or plasma cholesterol in HDL measurement (mass/volume)on 10-27-2021 Cholesterol in HDL [Mass/Vol] 33 mg/dL [facility] Work Phone: Comment on above: The drugs N-Acetylcy steine and Metamizole may falsely depress this assay. Reference Range HDL <40 mg/dL Low HDL Cholesterol HDL >or= 60 mg/dL High HDL Cholesterol Serum or plasma cholesterol in VLDL measurement (mass/volume)on 10-27-2021 Cholesterol in VLDL [Mass/Vol] 37 mg/dL 5-40 [facility] Work Phone: [phone] Serum or plasma low density lipoprotein (LDL) cholesterol measurement (mass/volume)on 10-27-2021 Cholesterol in LDL [Mass/Vol] 76 mg/dL 0-130 [facility] Work Phone: [phone] Thin prep Papanicolaou smear with manual screeningon 10-27-2021 Thin prep Papanicolaou smear with manual screening 31 U/L 15-37 [facility] Work Phone: Absolute lymphocyte counton 09-29-2021 Lymphocytes Auto (Unsp spec) [#/Vol] 0.51 10*3/uL 0.83-4.51 [facility] Work Phone: Basophil percentageon 2021 Basophils/100 WBC (Bld) 0.4 % 0-1 [facility] Work Phone: Eosinophils/100 WBC (Bld) 4.7 % 0-5 [facility] Work Phone: Neutrophils (Bld) [#/Vol] 3.7 10*3/uL 2.0-7.7 [facility] Work Phone: Neutrophils/100 WBC (Bld) 76.0 % 47-70 [facility] Work Phone: WBC (Bld) [#/Vol] 4.9 10*3/uL 4.4-11.0 [facility] Work Phone: Blood erythrocytes count (nu mber/volume)on 09-29-2021 RBC (Bld) [#/Vol] 3.92 10*6/uL 4.6-6.2 [facility] Work Phone: Blood hemoglobin measurement (mass/volume)on 09-29-2021 Hemoglobin (Bld) [Mass/Vol] 10.9 g/dL 13.0-16.5 [facility] Work Phone: Blood lymphocytes/100 leukoc yteson 09-29-2021 Lymphocytes/100 WBC (Bld) 10.5 % 19-41 [facility] Work Phone: Blood monocytes/100 leukocyt eson 09-29-2021 Monocytes/100 WBC (Bld) 8.2 % 0-10 [facility] Work Phone: Blood platelet mean volumeon 09-29-2021 Platelet mean volume (Bld) [Entitic vol] 9.7 fL 6.2-12.0 [facility] Work Phone: [phone] Determination of erythrocyte mean corpuscular volume (MCV)on 09-29-2021 MCV (RBC) [Entitic vol] 83.9 fL 80-94 [facility] Work Phone: [phone] Glucose Glucometer (BldC) [M ass/Vol]on 09-29-2021 Glucose [Mass/Vol] 204 mg/dL 70-110 [facility] Work Phone: [phone] Comment on above: MANAGEMENT OF PATIEN T CARE PER NURSING PROTOCOL Hematocrit Auto (Bld) [Volum e fraction]on 09-29-2021 Hematocrit (Bld) [Volume fraction] 32.9 % 40-54 [facility] Work Phone: [phone] Laboratory - Coagulationon 0 09-29-2021 aPTT Coag (Bld) [Time] 65.1 s 24.1-36.2 [facility] Work Phone: [phone] Laboratory - Hematology and Cell countson 09-29-2021 Erythrocyte distribution width (RBC) [Entitic vol] 44.1 fL 35.1-43.9 [facility] Work Phone: [phone] Erythrocyte distribution width (RBC) [Ratio] 14.6 % 11.6-14.6 [facility] Work Phone: [phone] Immature granulocytes/100 WBC (Bld) 0.200 % 0.0-0.9 [facility] Work Phone: [phone] Comment on above: IG% - Immature Granu locytes (promyelocytes, myelocytes and metamyelocytes) > 1% indicates that a LEFT SHIFT is Present. MCH (RBC) [Entitic mass] 27.8 pg 27.0-32.0 [facility] Work Phone: [phone] Nucleated RBC/100 WBC (Bld) [Ratio] 0 % 0-5 [facility] Work Phone: [phone] MCHC Auto (RBC) [Mass/Vol]on 09-29-2021 MCHC (RBC) [Mass/Vol] 33.1 g/dL 32-36 [facility] Work Phone: [phone] Platelets bldon 09-29-2021 Platelets (Bld) [#/Vol] 258 10*3/uL 150-450 [facility] Work Phone: Basophil percentageon 2021 Chloride [Moles/Vol] 100 mmol/L 98-107 [facility] Work Phone: Glucose [Mass/Vol] 335 mg/dL 74-106 [facility] Work Phone: Comment on above: Glucose result great er than or equal to 200 mg/dLsuggests DIABETES MELLITUS per A.D.A. criteria. Potassium [Moles/Vol] 3.7 mmol/L 3.5-5.1 [facility] Work Phone: Sodium [Moles/Vol] 136 mmol/L 136-145 [facility] Work Phone: Laboratory - Chemistry and C hemistry - challengeon 09-28-2021 CO2 [Moles/Vol] 30.0 mmol/L 21.0-32.0 [facility] Work Phone: Urea nitrogen/Creatinine [Mass ratio] 26.9 mg/mg 10-20 [facility] Work Phone: No Panel Informationon 09-28 Estimated Creatinine Clearance Calc 67.97 ml/min [facility] Work Phone: Estimated GFR (MDRD) Amer 93 mL/min >60 [facility] Work Phone: Comment on above: GFR Calc Estimated GFR (MDRD) Non-Af Amer 76 mL/min >60 [facility] Work Phone: Comment on above: Non- GFR Calc Serum or plasma calcium isael urement (mass/volume)on 09-28-2021 Calcium [Mass/Vol] 8.6 mg/dL 8.5-10.1 [facility] Work Phone: Serum or plasma creatinine m easurement (mass/volume)on 09-28-2021 Creatinine [Mass/Vol] 1.04 mg/dL 0.70-1.30 [facility] Work Phone: Comment on above: The validity of the calculated GFR & GFRAA in patients over 70 years has not been determined. Clinical correlation is essential. Serum or plasma urea nitroge n measurement (mass/volume)on 09-28-2021 Urea nitrogen [Mass/Vol] 28 mg/dL 7-18 [facility] Work Phone: Thin prep Papanicolaou smear with manual screeningon 09-28-2021 Thin prep Papanicolaou smear with manual screening 6 5-15 [facility] Work Phone: Laboratory - Microbiology an d Antimicrobial susceptibilityon 09-27-2021 SARS-CoV-2 (COVID-19) RNA ROBIN+probe Ql (Unsp spec) Not detected Not Detect [facility] Work Phone: Comment on above: Normal Reference Ran ge: Not DetectedMethod:(RT-PCR) real-time reverse transcriptase PCRLuminex Estately Instrument*The Food and Drug Administration (FDA) has issued an Emergency Use Authorization (EAU) for the Estately SARS-CoV-2 Assay for the rapid detection of [...] Panel Informationon 09-27 Respiratory Panel (PCR) [facility] Work Phone: Vancomycin troughon 09-26-19 Vancomycin trough [Mass/Vol] 11.7 ug/mL 5.0-15.0 [facility] Work Phone: Comment on above: VANCOMYCIN STANDARED DRUG THERAPY TROUGH LEVEL: 5.0 - 15.0 mg/L VANCOMYCIN HIGH INTENSITY THERAPY TROUGH LEVEL: 15.0 - 20.0 mg/L High Intensity therapy recommended for serious lifethreatening infections include:- Otinijuasr-Uyhrziaqpanb-Htnujojsc (Ventilator/Healtcare Associated)-Sepsis PLEASE CONTACT PHARMACY SERVICES (#1214) FOR INTERPRETATIONOF RESULTS. Base excesson 09-25-2021 Base excess Calc (BldV) [Moles/Vol] -4 mmol/L -2-2 [facility] Work Phone: Basophil percentageon 2021 Basophil percentage 19.6 mmol/L 22-26 [facility] Work Phone: Basophils/100 WBC (Bld) 89 % 95-99 [facility] Work Phone: CO2 (BldA) [Partial pressure ]on 09-25-2021 CO2 (Bld) [Partial pressure] 28.2 mm[Hg] 35-45 [facility] Work Phone: No Panel Informationon 09-25 Blood Gas Liter Flow 2.0 /min [facility] Work Phone: Blood Gas Sample Site R Radial [facility] Work Phone: Blood Gas Specimen Type ART [facility] Work Phone: Blood Gas Total CO2 21 mmol/L [facility] Work Phone: Oxygen Delivery Device Cannula [facility] Work Phone: Oxygen (BldA) [Partial press ure]on 09-25-2021 Oxygen (Bld) [Partial pressure] 52 mmHG 75-100 [facility] Work Phone: pH measurementon 09-25-2021 pH (Unsp spec) 7.45 [pH] 7.35-7.45 [facility] Work Phone: Assessment of wrist artery p atency prior to arterial punctureon 09-24-2021 Arterial patency Wrist artery --pre arterial puncture N/A [facility] Work Phone: Basophil percentageon 2021 Bilirubin [Mass/Vol] 0.30 mg/dL 0.20-1.00 [facility] Work Phone: Comment on above: For patients on eltr ombopag therapy, use of Dimension [place] TBIL is not recommended. Protein [Mass/Vol] 6.7 g/dL 6.4-8.2 [facility] Work Phone: Basophil percentage >100 SEEN /hpf [facility] Work Phone: [phone] Ammonia (P) [Moles/Vol] 32.0 umol/L 11-32 [facility] Work Phone: Bilirubin Test strip Ql (U)o n 09-24-2021 Bilirubin Ql (U) Negative Negative [facility] Work Phone: Culture, urineon 09-24-2021 Bacteria identified Cx Nom (U) Presumptive E. coli [facility] Work Phone: [phone] Direct bilirubinon Bilirubin.direct [Mass/Vol] 0.11 mg/dL 0.00-0.30 [facility] Work Phone: INR in Blood by Coagulation assayon 09-24-2021 INR Coag (Bld) [Relative time] 1.1 {INR} [facility] Work Phone: Ketones Test strip Ql (U)on 09-24-2021 Ketones Ql (U) 5 mg/dl Negative [facility] Work Phone: Laboratory - Chemistry and C hemistry - challengeon 09-24-2021 ALP [Catalytic activity/Vol] 96 U/L 45-117 [facility] Work Phone: ALT [Catalytic activity/Vol] 44 U/L 16-61 [facility] Work Phone: [phone] Globulin (S) [Mass/Vol] 3.5 g/dL 2.2-4.2 [facility] Work Phone: Laboratory - Coagulationon 0 09-24-2021 PT Coag (PPP) [Time] 13.2 s 11.7-14.9 [facility] Work Phone: Laboratory - Microbiology an d Antimicrobial susceptibilityon 09-24-2021 Bacteria identified Cx Nom (Bld) No growth in 5 days. [facility] Work Phone: Mucus LM Ql (Urine sed)on Mucus Ql (Urine sed) 0 SEEN /hpf [facility] Work Phone: Nitrite Test strip Ql (U)on 09-24-2021 Nitrite Ql (U) Negative Negative [facility] Work Phone: No Panel Informationon 09-24 Troponin I High Sensitivity 47067 pg/mL 3.0-78.0 [facility] Work Phone: Comment on above: Please Note: New Jeny t Units and Gender Specific Reference Ranges. For more information see Policy Stat Procedure [place] High Sensitivity Troponin (TNIH) and attachments. Protein Test strip Ql (U)on 09-24-2021 Protein Ql (U) 100 mg/dl Negative [facility] Work Phone: [phone] Serum or plasma albumin isael urement (mass/volume)on 09-24-2021 Albumin [Mass/Vol] 3.2 g/dL 3.2-5.0 [facility] Work Phone: Serum or plasma albumin/glob ulin mass ratioon 09-24-2021 Albumin/Globulin [Mass ratio] 0.9 {ratio} 0.9-2.4 [facility] Work Phone: Squamous epithelial cells de tection in urine sediment by light microscopyon 09-24-2021 Epithelial cells.squamous LM Ql (Urine sed) 0 SEEN /hpf [facility] Work Phone: Thin prep Papanicolaou smear with manual screeningon 09-24-2021 Thin prep Papanicolaou smear with manual screening 148 U/L 15-37 [facility] Work Phone: Urine blood detectionon 09-07 RBC Ql (U) 25 /ul Negative [facility] Work Phone: RBC Ql (U) 0 SEEN /hpf [facility] Work Phone: Urine clarityon 09-24-2021 Clarity (U) Sl. Cloudy Clear [facility] Work Phone: [phone] Urine color determinationon 09-24-2021 Color (U) Yellow Yellow [facility] Work Phone: Urine glucose detectionon Glucose Ql (U) 250 mg/dl Normal [facility] Work Phone: Urine leukocyte esterase det ection by dipstickon 09-24-2021 Leukocyte esterase Test strip Ql (U) 500 /ul Negative [facility] Work Phone: Urine pHon 09-24-2021 pH (U) 5.0 [pH] [facility] Work Phone: Urine sediment bacteria coun t by microscopy (number/high power field)on 09-24-2021 Bacteria LM.HPF (Urine sed) [#/Area] 4 /[HPF] None Seen [facility] Work Phone: Urine specific gravity measu rementon 09-24-2021 Specific gravity (U) [Rel density] 1.020 [facility] Work Phone: Urobilinogen Auto test strip Ql (U)on 09-24-2021 Urobilinogen Ql (U) Normal mg/dl Normal [facility] Work Phone: Absolute lymphocyte counton 09-23-2021 Lymphocytes Auto (Unsp spec) [#/Vol] 0.87 10*3/uL 0.83-4.51 [facility] Work Phone: Basophil percentageon 2021 Basophils/100 WBC (Bld) 0.2 % 0-1 [facility] Work Phone: Chloride [Moles/Vol] 100 mmol/L 98-107 [facility] Work Phone: Eosinophils/100 WBC (Bld) 1.4 % 0-5 [facility] Work Phone: Glucose [Mass/Vol] 241 mg/dL 74-106 [facility] Work Phone: Comment on above: Glucose result great er than or equal to 200 mg/dLsuggests DIABETES MELLITUS per A.D.A. criteria. Neutrophils (Bld) [#/Vol] 4.9 10*3/uL 2.0-7.7 [facility] Work Phone: Neutrophils/100 WBC (Bld) 76.5 % 47-70 [facility] Work Phone: Potassium [Moles/Vol] 4.1 mmol/L 3.5-5.1 [facility] Work Phone: Sodium [Moles/Vol] 136 mmol/L 136-145 [facility] Work Phone: WBC (Bld) [#/Vol] 6.4 10*3/uL 4.4-11.0 [facility] Work Phone: Blood erythrocytes count (nu mber/volume)on 09-23-2021 RBC (Bld) [#/Vol] 4.84 10*6/uL 4.6-6.2 [facility] Work [facility]: Blood hemoglobin measurement (mass/volume)on 09-23-2021 Hemoglobin (Bld) [Mass/Vol] 13.2 g/dL 13.0-16.5 [facility] Work Phone: Blood lymphocytes/100 leukoc yteson 09-23-2021 Lymphocytes/100 WBC (Bld) 13.7 % 19-41 [facility] Work Phone: Blood monocytes/100 leukocyt eson 09-23-2021 Monocytes/100 WBC (Bld) 8.0 % 0-10 [facility] Work Phone: Blood platelet mean volumeon 09-23-2021 Platelet mean volume (Bld) [Entitic vol] 9.4 fL 6.2-12.0 [facility] Work Phone: Determination of erythrocyte mean corpuscular volume (MCV)on 09-23-2021 MCV (RBC) [Entitic vol] 84.5 fL 80-94 [facility] Work Phone: Hematocrit Auto (Bld) [Volum e fraction]on 09-23-2021 Hematocrit (Bld) [Volume fraction] 40.9 % 40-54 [facility] Work Phone: [phone] Laboratory - Chemistry and C hemistry - challengeon 09-23-2021 CO2 [Moles/Vol] 30.0 mmol/L 21.0-32.0 [facility] Work Phone: [phone] Urea nitrogen/Creatinine [Mass ratio] 19.3 mg/mg 10-20 [facility] Work Phone: [phone] Laboratory - Hematology and Cell countson 09-23-2021 Erythrocyte distribution width (RBC) [Entitic vol] 44.2 fL 35.1-43.9 [facility] Work Phone: [phone] Erythrocyte distribution width (RBC) [Ratio] 14.5 % 11.6-14.6 [facility] Work Phone: [phone] Immature granulocytes/100 WBC (Bld) 0.200 % 0.0-0.9 [facility] Work Phone: [phone] Comment on above: IG% - Immature Granu locytes (promyelocytes, myelocytes and metamyelocytes) > 1% indicates that a LEFT SHIFT is Present. MCH (RBC) [Entitic mass] 27.3 pg 27.0-32.0 [facility] Work Phone: [phone] Nucleated RBC/100 WBC (Bld) [Ratio] 0 % 0-5 [facility] Work Phone: [phone] MCHC Auto (RBC) [Mass/Vol]on 09-23-2021 MCHC (RBC) [Mass/Vol] 32.3 g/dL 32-36 [facility] Work Phone: [phone] Panel Informationon 09-23 SARS-CoV-2 Antigen (Rapid) [facility] Work Phone: [phone] Estimated Creatinine Clearance Calc 72.13 ml/min [facility] Work Phone: [phone] Estimated GFR (MDRD) Amer 99 mL/min >60 [facility] Work Phone: [phone] Comment on above: GFR Calc Estimated GFR (MDRD) Non-Af Amer 82 mL/min >60 [facility] Work Phone: Comment on above: Non- GFR Calc Troponin I High Sensitivity 14 pg/mL 3.0-78.0 [facility] Work Phone: Comment on above: Please Note: New Jeny t Units and Gender Specific Reference Ranges. For more information see Policy Stat Procedure [place] High Sensitivity Troponin (TNIH) and attachments. Platelets bldon 09-23-2021 Platelets (Bld) [#/Vol] 256 10*3/uL 150-450 [facility] Work Phone: Serum or plasma calcium isael urement (mass/volume)on 09-23-2021 Calcium [Mass/Vol] 9.4 mg/dL 8.5-10.1 [facility] Work Phone: Serum or plasma creatinine m easurement (mass/volume)on 09-23-2021 Creatinine [Mass/Vol] 0.98 mg/dL 0.70-1.30 [facility] Work Phone: Comment on above: The validity of the calculated GFR & GFRAA in patients over 70 years has not been determined. Clinical correlation is essential. Serum or plasma urea nitroge n measurement (mass/volume)on 09-23-2021 Urea nitrogen [Mass/Vol] 19 mg/dL 7-18 [facility] Work Phone: Thin prep Papanicolaou smear with manual screeningon 09-23-2021 Thin prep Papanicolaou smear with manual screening 6 5-15 [facility] Work Phone: Glucose Glucometer (BldC) [M ass/Vol]on 09-07-2021 Glucose [Mass/Vol] 115 mg/dL 70-110 [facility] Work Phone: Comment on above: MANAGEMENT OF PATIEN T CARE PER NURSING PROTOCOL Vital Signs Date Time Vital Sign Value Performing Clinician Facility 04-30-2025 09:43-0400 Body height 170.[address] Dwayne Aldana MD Work Phone: [facility] 04-30-2025 09:43-0400 Body weight 57.[address] Dwayne Aldana MD Work Phone: [facility] 04-29-2025 08:39-0400 Body mass index (BMI) [Ratio] 19.7 kg/m2 Dr. Dwayne Aldana MD Work Phone: [phone] [place] [address] 03-17-2025 07:49-0400 Body height 170.[address] Kendy Modi MD Work Phone: [phone] [place] [address] 03-17-2025 07:49-0400 Body mass index (BMI) [Ratio] 19.7 kg/m2 Dr. Kendy Modi MD Work Phone: [phone] [place] [address] 03-17-2025 07:49-0400 Body weight 57.[address] Kendy Modi MD Work Phone: [phone] [place] [address] 03-17-2025 07:49-0400 Diastolic blood pressure 87 mm[Hg] Dr. Kendy Modi MD Work Phone: [phone] [place] [address] 03-17-2025 07:49-0400 Heart rate 93 /min Dr. Kendy Modi MD Work Phone: [phone] [place] [address] 03-17-2025 07:49-0400 Respiratory rate 18 /min Dr. Kendy Modi MD Work Phone: [phone] [place] [address] 03-17-2025 07:49-0400 SaO2% (BldA) [Mass fraction] 96 % Dr. Kendy Modi MD Work Phone: [phone] [place] [address] 03-17-2025 07:49-0400 Systolic blood pressure 135 mm[Hg] Dr. Kendy Modi MD Work Phone: [phone] [place] [address] 12-09-2024 07:30-0400 Body mass index (BMI) [Ratio] 21.1 kg/m2 Dr. Kendy Modi MD Work Phone: [phone] [place] [address] 12-09-2024 07:30-0400 Body weight 61.[address] Kendy Modi MD Work Phone: [phone] [place] [address] 12-09-2024 07:30-0400 Diastolic blood pressure 65 mm[Hg] Dr. Kendy Modi MD Work Phone: [facility] 12-09-2024 07:30-0400 Heart rate 71 /min Dr. Kendy Modi MD Work Phone: [facility] 12-09-2024 07:30-0400 Respiratory rate 18 /min Dr. Kendy Modi MD Work Phone: [phone] [place] [address] 12-09-2024 07:30-0400 Systolic blood pressure 110 mm[Hg] Dr. Kendy Modi MD Work Phone: [phone] [place] [address] 12-03-2024 08:00-0400 Diastolic blood pressure 61 mm[Hg] Dr. Kendy Modi MD Work Phone: [phone] [place] [address] 12-03-2024 08:00-0400 Heart rate 68 /min Dr. Kendy Modi MD Work Phone: [phone] [place] [address] 12-03-2024 08:00-0400 Respiratory rate 14 /min Dr. Kendy Modi MD Work Phone: [phone] [address] 12-03-2024 08:00-0400 SaO2% (BldA) [Mass fraction] 97 % Dr. Kendy Modi MD Work Phone: [phone] [place] [address] 12-03-2024 08:00-0400 Systolic blood pressure 127 mm[Hg] Dr. Kendy Modi MD Work Phone: [phone] [place] [address] 12-03-2024 05:03-0400 Body temperature 98.1 [degF] Dr. Kendy Modi MD Work Phone: [facility] 12-02-2024 22:59-0400 Body mass index (BMI) [Ratio] 23.2 kg/m2 Dr. Kendy Modi MD Work Phone: [phone] [place] [address] 12-02-2024 22:59-0400 Body weight 67.[address] Kendy Modi MD Work Phone: [phone] [place] [address] 11-28-2024 14:58-0400 Body temperature 97.7 [degF] Dr. Kendy Modi MD Work Phone: [facility] 11-28-2024 14:58-0400 Diastolic blood pressure 59 mm[Hg] Dr. Kendy Modi MD Work Phone: [facility] 11-28-2024 14:58-0400 Heart rate 77 /min Dr. Kendy Modi MD Work Phone: [facility] 11-28-2024 14:58-0400 Respiratory rate 17 /min Dr. Kendy Modi MD Work Phone: 1(179)240-893760 [place] [address] 11-28-2024 14:58-0400 SaO2% (BldA) [Mass fraction] 99 % Dr. Kendy Modi MD Work Phone: 4(719)875-403460 [place] [address] 11-28-2024 14:58-0400 Systolic blood pressure 94 mm[Hg] Dr. Kendy Modi MD Work Phone: 4(422)210-080460 [place] [address] 11-28-2024 03:15-0400 Body mass index (BMI) [Ratio] 21.4 kg/m2 Dr. Kendy Modi MD Work Phone: 5(597)400-381960 [place] [address] 11-28-2024 03:15-0400 Body weight 62.[address] Kendy Modi MD Work Phone: 6(645)414-152111 [place] [address] 11-25-2024 09:53-0400 Body height 170.[address] Kendy Modi MD Work Phone: 7(816)541-540860 [place] [address] 11-25-2024 08:55-0400 Body temperature 97.9 [degF] Dr. Kendy Modi MD Work Phone: 2(558)283-940560 [place] [address] 11-25-2024 08:55-0400 Diastolic blood pressure 64 mm[Hg] Dr. Kendy Modi MD Work Phone: [facility] 11-25-2024 08:55-0400 Heart rate 79 /min Dr. Kendy Modi MD Work Phone: [facility] 11-25-2024 08:55-0400 Respiratory rate 14 /min Dr. Kendy Modi MD Work Phone: [facility] 11-25-2024 08:55-0400 SaO2% (BldA) [Mass fraction] 99 % Dr. Kendy Modi MD Work Phone: [facility] 11-25-2024 08:55-0400 Systolic blood pressure 125 mm[Hg] Dr. Kendy Modi MD Work Phone: [facility] 11-25-2024 05:17-0400 Body mass index (BMI) [Ratio] 21 kg/m2 Dr. Kendy Modi MD Work Phone: 4(054)047-729260 [place] [address] 11-25-2024 05:17-0400 Body weight 60.[address] Kendy Modi MD Work Phone: [facility] 11-24-2024 23:13-0400 Body height 170.[address] Kendy Modi MD Work Phone: [facility] 11-24-2024 23:04-0400 Body temperature 98.3 [degF] Dr. Kendy Modi MD Work Phone: [facility] 11-24-2024 23:04-0400 Diastolic blood pressure 59 mm[Hg] Dr. Kendy Modi MD Work Phone: [facility] 11-24-2024 23:04-0400 Heart rate 81 /min Dr. Kendy Modi MD Work Phone: [facility] 11-24-2024 23:04-0400 Respiratory rate 14 /min Dr. Kendy Modi MD Work Phone: [facility] 11-24-2024 23:04-0400 SaO2% (BldA) [Mass fraction] 98 % Dr. Kendy Modi MD Work Phone: [facility] 11-24-2024 23:04-0400 Systolic blood pressure 135 mm[Hg] Dr. Kendy Modi MD Work Phone: [facility] 11-24-2024 20:09-0400 Body mass index (BMI) [Ratio] 21.3 kg/m2 Dr. Kendy Modi MD Work Phone: 0(568)843-570660 [place] [address] 11-24-2024 20:09-0400 Body weight 61.[address] Kendy Modi MD Work Phone: 7(047)717-401011 [place] [address] 11-24-2024 19:16-0400 Body height 170.[address] Kendy Modi MD Work Phone: 9(974)495-777211 [place] [address] 10-30-2024 14:16-0400 Body mass index (BMI) [Ratio] 20.3 kg/m2 Dr. Kendy Modi MD Work Phone: 1(644)986-760011 [place] [address] 10-30-2024 14:16-0400 Body weight 58.[address] Kendy Modi MD Work Phone: 0(393)412-719211 [place] [address] 10-30-2024 14:16-0400 Diastolic blood pressure 61 mm[Hg] Dr. Kendy Modi MD Work Phone: 3(813)922-379760 [place] [address] 10-30-2024 14:16-0400 Heart rate 90 /min Dr. Kendy Modi MD Work Phone: 7(113)333-738511 [place] [address] 10-30-2024 14:16-0400 Respiratory rate 16 /min Dr. Kendy Modi MD Work Phone: 4(114)353-236811 [place] [address] 10-30-2024 14:16-0400 SaO2% (BldA) [Mass fraction] 95 % Dr. Kendy Modi MD Work Phone: 2(581)499-470060 [place] [address] 10-30-2024 14:16-0400 Systolic blood pressure 94 mm[Hg] Dr. Kendy Modi MD Work Phone: 6(810)123-900511 [place] [address] 10-18-2024 14:04-0400 Body temperature 97.6 [degF] Dr. Kendy Modi MD Work Phone: 8(558)413-980411 [place] [address] 10-18-2024 14:04-0400 Diastolic blood pressure 71 mm[Hg] Dr. Kendy Modi MD Work Phone: [facility] 10-18-2024 14:04-0400 Heart rate 83 /min Dr. Kendy Modi MD Work Phone: 7(541)946-717211 [place] [address] 10-18-2024 14:04-0400 Respiratory rate 16 /min Dr. Kendy Modi MD Work Phone: 0(744)876-871811 [place] [address] 10-18-2024 14:04-0400 SaO2% (BldA) [Mass fraction] 94 % Dr. Kendy Modi MD Work Phone: 5(374)132-226260 [place] [address] 10-18-2024 14:04-0400 Systolic blood pressure 120 mm[Hg] Dr. Kendy Modi MD Work Phone: 9(290)016-456911 [place] [address] 10-18-2024 02:36-0400 Inhaled oxygen concentration 30 % Dr. Kendy Modi MD Work Phone: 5(616)231-144311 [place] [address] 10-17-2024 07:37-0400 Inhaled oxygen flow rate 5 L/min Dr. Kendy Modi MD Work Phone: 4(539)550-279211 [place] [address] 10-17-2024 06:00-0400 Body mass index (BMI) [Ratio] 23.5 kg/m2 Dr. Kendy Modi MD Work Phone: 4(794)911-967811 [place] [address] 10-17-2024 06:00-0400 Body weight 68.[address] Kendy Modi MD Work Phone: 4(885)706-403111 [place] [address] 10-16-2024 16:08-0400 Body height 170.[address] Kendy Modi MD Work Phone: 8(496)024-545911 [place] [address] 08-28-2024 10:27-0500 Body temperature 97.8 [degF] Dr. Kendy Modi MD Work Phone: 9(323)432-036611 [place] [address] 08-28-2024 10:27-0500 Diastolic blood pressure 66 mm[Hg] Dr. Kendy Modi MD Work Phone: 6(513)448-630111 [place] [address] 08-28-2024 10:27-0500 Heart rate 74 /min Dr. Kendy Modi MD Work Phone: [facility] 08-28-2024 10:27-0500 Respiratory rate 16 /min Dr. Kendy Modi MD Work Phone: [facility] 08-28-2024 10:27-0500 SaO2% (BldA) [Mass fraction] 95 % Dr. Kendy Modi MD Work Phone: [facility] 08-28-2024 10:27-0500 Systolic blood pressure 160 mm[Hg] Dr. Kendy Modi MD Work Phone: [facility] 08-28-2024 05:59-0500 Body mass index (BMI) [Ratio] 22.8 kg/m2 Dr. Kendy Modi MD Work Phone: [facility] 08-28-2024 05:59-0500 Body weight [address] Kendy Modi MD Work Phone: [facility] 06-04-2024 14:46-0400 Body height 168.9 cm Melanie Yang [employer].J[employer]IOR ANALYST Work Phone: [facility] 06-04-2024 14:46-0400 Body mass index (BMI) [Ratio] 22.58 kg/m2 Melanie Yang [employer].JUNIOR ANALYST Work Phone: [facility] 06-04-2024 14:46-0400 Body weight 64.41 kg Melanie Yang [employer].JUNIOR ANALYST Work Phone: [facility] 06-04-2024 13:33-0400 Body height 168.9 cm Forest Kimble MD Work Phone: [facility] 06-04-2024 13:33-0400 Body mass index (BMI) [Ratio] 22.68 kg/m2 Forest Kimble MD Work Phone: [facility] 06-04-2024 13:33-0400 Body weight 64.7 kg Forest Kimble MD Work Phone: [facility] 06-04-2024 13:33-0400 Diastolic blood pressure 65 mm[Hg] Forest Kimble MD Work Phone: [facility] 06-04-2024 13:33-0400 Heart rate 78 /min Forest Kimble MD Work Phone: [facility] 06-04-2024 13:33-0400 Systolic blood pressure 147 mm[Hg] Forest Kimble MD Work Phone: [facility] 05-31-2024 09:34-0400 Body height 170.2 cm Pebbles Barfield MD Work Phone: [facility] 05-31-2024 09:34-0400 Body mass index (BMI) [Ratio] 17.23 kg/m2 Pebbles Barfield MD Work Phone: [facility] 05-31-2024 09:34-0400 Body weight 49.9 kg Pebbles Barfield MD Work Phone: [facility] 05-31-2024 09:34-0400 Diastolic blood pressure 68 mm[Hg] Pebbles Barfield MD Work Phone: [facility] 05-31-2024 09:34-0400 Heart rate 76 /min Pebbles Barfield MD Work Phone: [facility] 05-31-2024 09:34-0400 Respiratory rate 20 /min Pebbles Barfield MD Work Phone: [facility] 05-31-2024 09:34-0400 Systolic blood pressure 121 mm[Hg] Pebbles Barfield MD Work Phone: [facility] 03-11-2024 09:18-0400 Body mass index (BMI) [Ratio] 17.43 kg/m2 Kenzie Drew APRN.CNP, DNP Work Phone: [facility] 03-11-2024 09:18-0400 Body weight 48.99 kg Kenzie Drew APRN.CNP, DNP Work Phone: [facility] 12-02-2023 02:29-0400 Body temperature 97.1 [degF] Dr. Kendy Modi Work Phone: [facility] 12-02-2023 02:29-0400 Diastolic blood pressure 62 mm[Hg] Dr. Kendy Modi Work Phone: [facility] 12-02-2023 02:29-0400 Heart rate 75 /min Dr. Kendy Modi Work Phone: [facility] 12-02-2023 02:29-0400 Respiratory rate 16 /min Dr. Kendy Modi Work Phone: [facility] 12-02-2023 02:29-0400 SaO2% (BldA) [Mass fraction] 91 % Dr. Kendy Modi Work Phone: [facility] 12-02-2023 02:29-0400 Systolic blood pressure 132 mm[Hg] Dr. Kendy Modi Work Phone: [facility] 12-01-2023 16:42-0400 Body mass index (BMI) [Ratio] 21.4 kg/m2 Dr. Kendy Modi Work Phone: [facility] 12-01-2023 16:42-0400 Body weight 60.[address] Kendy Modi Work Phone: [facility] 12-01-2023 16:39-0400 Body height 167.[address] Kendy Modi Work Phone: [facility] 11-29-2023 14:16-0400 Body temperature 98.3 [degF] Dr. Kendy Modi Work Phone: [facility] 11-29-2023 14:16-0400 Diastolic blood pressure 88 mm[Hg] Dr. Kendy Modi Work Phone: [facility] 11-29-2023 14:16-0400 Heart rate 88 /min Dr. Kendy Modi Work Phone: [facility] 11-29-2023 14:16-0400 Respiratory rate 18 /min Dr. Kendy Modi Work Phone: [facility] 11-29-2023 14:16-0400 SaO2% (BldA) [Mass fraction] 97 % Dr. Kendy Modi Work Phone: [facility] 11-29-2023 14:16-0400 Systolic blood pressure 156 mm[Hg] Dr. Kendy Modi Work Phone: [facility] 11-29-2023 11:27-0400 Body height 167.[address] Kendy Modi Work Phone: [facility] 11-29-2023 11:27-0400 Body mass index (BMI) [Ratio] 23.8 kg/m2 Dr. Kendy Modi Work Phone: [facility] 11-29-2023 11:27-0400 Body weight 67.[address] Kendy Modi Work Phone: [facility] 11-28-2023 10:58-0400 Body temperature 98.8 [degF] Dalton Mandujano MD Work Phone: [facility] 11-28-2023 10:58-0400 Diastolic blood pressure 63 mm[Hg] Dalton Mandujano MD Work Phone: [facility] 11-28-2023 10:58-0400 Heart rate 68 /min Dalton Mandujano MD Work Phone: [facility] 11-28-2023 10:58-0400 Respiratory rate 17 /min Dalton Mandujano MD Work Phone: [facility] 11-28-2023 10:58-0400 SaO2% (BldA) [Mass fraction] 98 % Dalton Mandujano MD Work Phone: [facility] 11-28-2023 10:58-0400 Systolic blood pressure 139 mm[Hg] Dalton Mandujano MD Work Phone: [facility] 11-28-2023 07:49-0400 Body height 167.6 cm Dalton Mandujano MD Work Phone: [facility] 11-28-2023 07:49-0400 Body mass index (BMI) [Ratio] 20.64 kg/m2 Dalton Mandujano MD Work Phone: [facility] 11-28-2023 07:49-0400 Body weight 58 kg Dalton Mandujano MD Work Phone: [facility] 11-12-2023 00:00-0400 Diastolic blood pressure 98 mm[Hg] Dr. Kendy Modi Work Phone: [facility] 11-12-2023 00:00-0400 Heart rate 78 /min Dr. Kendy Modi Work Phone: [facility] 11-12-2023 00:00-0400 Respiratory rate 16 /min Dr. Kendy Modi Work Phone: [facility] 11-12-2023 00:00-0400 SaO2% (BldA) [Mass fraction] 94 % Dr. Kenyd Modi Work Phone: [facility] 11-12-2023 00:00-0400 Systolic blood pressure 178 mm[Hg] Dr. Kendy Modi Work Phone: [facility] 2023 23:42-0400 Body temperature 97.9 [degF] Dr. Kendy Modi Work Phone: [facility] 2023 21:23-0400 Body height 170.[address] Kendy Modi Work Phone: [facility] 2023 21:23-0400 Body mass index (BMI) [Ratio] 23.9 kg/m2 Dr. Kendy Modi Work Phone: [facility] 2023 21:23-0400 Body weight 69.[address] Kendy Modi Work Phone: [facility] 09-07-2023 14:31-0500 Body height 170.[address] Kendy Modi Work Phone: [facility] 09-07-2023 14:31-0500 Body mass index (BMI) [Ratio] 23.1 kg/m2 Dr. Kendy Modi Work Phone: [facility] 09-07-2023 14:31-0500 Body weight 67.[address] Kendy Modi Work Phone: [facility] 09-07-2023 14:31-0500 Diastolic blood pressure 91 mm[Hg] Dr. Kendy Modi Work Phone: [facility] 09-07-2023 14:31-0500 Heart rate 87 /min Dr. Kendy Modi Work Phone: [facility] 09-07-2023 14:31-0500 Respiratory rate 16 /min Dr. Kendy Modi Work Phone: [facility] 09-07-2023 14:31-0500 Systolic blood pressure 163 mm[Hg] Dr. Kendy Modi Work Phone: [facility] 07-19-2023 11:34-0500 Body height 170.2 cm Angeli Gasior DO Work Phone: [facility] 07-19-2023 11:34-0500 Body mass index (BMI) [Ratio] 23.18 kg/m2 Angeli Gasior DO Work Phone: [facility] 07-19-2023 11:34-0500 Body weight 67.13 kg Angeli Gasior DO Work Phone: [facility] 07-19-2023 11:34-0500 Diastolic blood pressure 61 mm[Hg] Angeli Gasior DO Work Phone: [facility] 07-19-2023 11:34-0500 Heart rate 79 /min Angeli Gasior DO Work Phone: [facility] 07-19-2023 11:34-0500 Systolic blood pressure 137 mm[Hg] Angeli Gasior DO Work Phone: [facility] 06-21-2023 14:08-0500 Body height 167.6 cm Everardo Yusuf [employer].JUNIOR ANALYST Work Phone: [facility] 06-21-2023 14:08-0500 Body temperature 98.2 [degF] [place] Yusuf [employer].JUNIOR ANALYST Work Phone: [facility] 06-21-2023 14:08-0500 Body weight 65.55 kg [place] Yusuf [employer].JUNIOR ANALYST Work Phone: [facility] 06-21-2023 14:08-0500 Diastolic blood pressure 75 mm[Hg] [place] Yusuf [employer].JUNIOR ANALYST Work Phone: [facility] 06-21-2023 14:08-0500 Heart rate 79 /min Everardo Yusuf [employer].JUNIOR ANALYST Work Phone: [facility] 06-21-2023 14:08-0500 Respiratory rate 16 /min Everardo Yusuf [employer].JUNIOR ANALYST Work Phone: [facility] 06-21-2023 14:08-0500 SaO2% (BldA) [Mass fraction] 97 % Everardo Yusuf [employer].JUNIOR ANALYST Work Phone: [facility] 06-21-2023 14:08-0500 Systolic blood pressure 132 mm[Hg] Evearrdo Yusuf [employer].JUNIOR ANALYST Work Phone: [facility] 05-24-2023 10:50-0400 Body height 170.2 cm Angeli Gasior DO Work Phone: [facility] 05-24-2023 10:50-0400 Body mass index (BMI) [Ratio] 22.74 kg/m2 Angeli Gasior DO Work Phone: [facility] 05-24-2023 10:50-0400 Body weight 65.86 kg Angeli Gasior DO Work Phone: [facility] 05-24-2023 10:50-0400 Diastolic blood pressure 58 mm[Hg] Angeli Gasior DO Work Phone: [facility] 05-24-2023 10:50-0400 Heart rate 82 /min Angeli Gasior DO Work Phone: [facility] 05-24-2023 10:50-0400 Systolic blood pressure 101 mm[Hg] Angeli Gasior DO Work Phone: [facility] 03-12-2023 15:00-0400 Body temperature 97.6 [degF] Dr. Kendy Modi Work Phone: [facility] 03-12-2023 15:00-0400 Diastolic blood pressure 73 mm[Hg] Dr. Kendy Modi Work Phone: [facility] 03-12-2023 15:00-0400 Heart rate 73 /min Dr. Kendy Modi Work Phone: [facility] 03-12-2023 15:00-0400 Respiratory rate 16 /min Dr. Kendy Modi Work Phone: [facility] 03-12-2023 15:00-0400 SaO2% (BldA) [Mass fraction] 98 % Dr. Kendy Modi Work Phone: [facility] 03-12-2023 15:00-0400 Systolic blood pressure 122 mm[Hg] Dr. Kendy Modi Work Phone: [facility] 03-12-2023 06:00-0400 Body mass index (BMI) [Ratio] 24.1 kg/m2 Dr. Kendy Modi Work Phone: [facility] 03-12-2023 06:00-0400 Body weight 69.[address] Kendy Modi Work Phone: [facility] 03-10-2023 18:03-0400 Body height 170.[address] Kendy Modi Work Phone: 3(976)250-127311 [place] [address] 03-10-2023 16:47-0400 Body temperature 97.5 [degF] Dr. Kendy Modi Work Phone: 7(038)524-386911 [place] [address] 03-10-2023 16:47-0400 Diastolic blood pressure 58 mm[Hg] Dr. Kendy Modi Work Phone: 1(739)879-034311 [place] [address] 03-10-2023 16:47-0400 Heart rate 74 /min Dr. Kendy Modi Work Phone: 2(002)035-615611 [place] [address] 03-10-2023 16:47-0400 Respiratory rate 17 /min Dr. Kendy Modi Work Phone: 6(307)619-178011 [place] [address] 03-10-2023 16:47-0400 SaO2% (BldA) [Mass fraction] 95 % Dr. Kendy Modi Work Phone: 1(882)733-056411 [place] [address] 03-10-2023 16:47-0400 Systolic blood pressure 123 mm[Hg] Dr. Kendy Modi Work Phone: 7(132)506-919711 [place] [address] 03-10-2023 12:01-0400 Body mass index (BMI) [Ratio] 24.5 kg/m2 Dr. Kendy Modi Work Phone: 8(317)497-628511 [place] [address] 03-10-2023 12:01-0400 Body weight 70.[address] Kendy Modi Work Phone: 7(051)769-593311 [place] [address] 03-10-2023 11:53-0400 Body height 170.[address] Kendy Modi Work Phone: 4(043)733-369711 [place] [address] 01-23-2023 15:43-0400 Body mass index (BMI) [Ratio] 23.8 kg/m2 Dr. Kendy Modi Work Phone: 9(083)984-618411 [place] [address] 01-23-2023 15:43-0400 Body weight 69.[address] Kendy Modi Work Phone: 6(697)700-787911 [place] [address] 01-23-2023 15:43-0400 Diastolic blood pressure 83 mm[Hg] Dr. Kendy Moid Work Phone: 8(515)470-959011 [place] [address] 01-23-2023 15:43-0400 Heart rate 79 /min Dr. Kendy Modi Work Phone: [facility] 01-23-2023 15:43-0400 Respiratory rate 16 /min Dr. Kendy Modi Work Phone: [facility] 01-23-2023 15:43-0400 Systolic blood pressure 153 mm[Hg] Dr. Kendy Modi Work Phone: [facility] 07-15-2022 13:00-0500 Body height 170.[address] Kendy Modi Work Phone: 9(478)380-428160 [place] [address] 07-15-2022 13:00-0500 Body mass index (BMI) [Ratio] 24.5 kg/m2 Dr. Kendy Modi Work Phone: 7(073)922-551860 [place] [address] 07-15-2022 13:00-0500 Body weight 70.[address] Kendy Modi Work Phone: [facility] 07-15-2022 13:00-0500 Diastolic blood pressure 60 mm[Hg] Dr. Kendy Modi Work Phone: [facility] 07-15-2022 13:00-0500 Heart rate 80 /min Dr. Kendy Modi Work Phone: [facility] 07-15-2022 13:00-0500 Respiratory rate 18 /min Dr. Kendy Modi Work Phone: [facility] 07-15-2022 13:00-0500 Systolic blood pressure 110 mm[Hg] Dr. Kendy Modi Work Phone: [facility] 05-11-2022 08:41-0400 Body height 170.2 cm RAVEN Galarza MD Work Phone: [facility] 05-11-2022 08:41-0400 Body weight 70.94 kg RAVEN Galarza MD Work Phone: [facility] 12-13-2021 14:15-0400 Body temperature 98.1 [degF] Everardo Yusuf [employer].JUNIOR ANALYST Work Phone: [facility] 12-13-2021 14:15-0400 Body weight 68.49 kg Everardo Yusuf [employer].JUNIOR ANALYST Work Phone: [facility] 12-13-2021 14:15-0400 Diastolic blood pressure 83 mm[Hg] Everardo Mathewenter [employer].JUNIOR ANALYST Work Phone: [facility] 12-13-2021 14:15-0400 Heart rate 79 /min Everardo Mathewenter [employer].JUNIOR ANALYST Work Phone: [facility] 12-13-2021 14:15-0400 Systolic blood pressure 144 mm[Hg] Everardo Yusuf [employer].JUNIOR ANALYST Work Phone: [facility] 10-15-2021 09:32-0500 Body height 170.[address] Kendy Modi Work Phone: [facility] Work Phone: 10-15-2021 09:32-0500 Body mass index (BMI) [Ratio] 23.1 kg/m2 Dr. Kendy Modi Work Phone: [facility] Work Phone: 10-15-2021 09:32-0500 Body weight 67.[address] Kendy Modi Work Phone: [facility] Work Phone: 10-15-2021 09:32-0500 Diastolic blood pressure 74 mm[Hg] Dr. Kendy Modi Work Phone: [facility] Work Phone: 10-15-2021 09:32-0500 Heart rate 86 /min Dr. Kendy Modi Work Phone: [facility] Work Phone: 10-15-2021 09:32-0500 Respiratory rate 18 /min Dr. Kendy Modi Work Phone: [facility] Work Phone: 10-15-2021 09:32-0500 SaO2% (BldA) [Mass fraction] 96 % Dr. Kendy Modi Work Phone: [facility] Work Phone: 10-15-2021 09:32-0500 Systolic blood pressure 125 mm[Hg] Dr. Kendy Modi Work Phone: [facility] Work Phone: 09-29-2021 14:25-0500 Body temperature 98.3 [degF] Dr. Kendy Modi Work Phone: [facility] Work Phone: 09-29-2021 14:25-0500 Diastolic blood pressure 64 mm[Hg] Dr. Kendy Modi Work Phone: [facility] Work Phone: 09-29-2021 14:25-0500 Heart rate 72 /min Dr. Kendy Modi Work Phone: [facility] Work Phone: 09-29-2021 14:25-0500 Respiratory rate 18 /min Dr. Kendy Modi Work Phone: [facility] Work Phone: 09-29-2021 14:25-0500 SaO2% (BldA) [Mass fraction] 96 % Dr. Kendy Modi Work Phone: [facility] Work Phone: 09-29-2021 14:25-0500 Systolic blood pressure 125 mm[Hg] Dr. Kendy Modi Work Phone: [facility] Work Phone: 09-29-2021 14:00-0500 Inhaled oxygen concentration 50 % Dr. Kendy Modi Work Phone: [facility] Work Phone: 09-29-2021 04:52-0500 Body weight 68.[address] Kendy Modi Work Phone: [facility] Work Phone: 09-24-2021 04:30-0500 Body mass index (BMI) [Ratio] 24.3 kg/m2 Dr. Kendy Modi Work Phone: [facility] Work Phone: 09-23-2021 13:11-0500 Body temperature 99.4 [degF] Dr. Kendy Modi Work Phone: [facility] Work Phone: 09-23-2021 13:11-0500 Diastolic blood pressure 66 mm[Hg] Dr. Kendy Modi Work Phone: [facility] Work Phone: 09-23-2021 13:11-0500 Heart rate 109 /min Dr. Kendy Modi Work Phone: [facility] Work Phone: 09-23-2021 13:11-0500 Respiratory rate 16 /min Dr. Kendy Modi Work Phone: [facility] Work Phone: 09-23-2021 13:11-0500 SaO2% (BldA) [Mass fraction] 98 % Dr. Kendy Modi Work Phone: [facility] Work Phone: 09-23-2021 13:11-0500 Systolic blood pressure 140 mm[Hg] Dr. Kendy Modi Work Phone: [facility] Work Phone: 09-23-2021 09:15-0500 Body mass index (BMI) [Ratio] 24.7 kg/m2 Dr. Kendy Modi Work Phone: [facility] Work Phone: 09-23-2021 09:15-0500 Body weight 71.[address] Kendy Modi Work Phone: [facility] Work Phone: 09-07-2021 13:31-0500 Body temperature 98.5 [degF] Dr. Kendy Modi Work Phone: [facility] Work Phone: 09-07-2021 13:31-0500 Diastolic blood pressure 80 mm[Hg] Dr. Kendy Modi Work Phone: [facility] Work Phone: 09-07-2021 13:31-0500 Heart rate 80 /min Dr. Kendy Modi Work Phone: [facility] Work Phone: 09-07-2021 13:31-0500 Respiratory rate 18 /min Dr. Kendy Modi Work Phone: [facility] Work Phone: 09-07-2021 13:31-0500 SaO2% (BldA) [Mass fraction] 94 % Dr. Kendy Modi Work Phone: [facility] Work Phone: 09-07-2021 13:31-0500 Systolic blood pressure 152 mm[Hg] Dr. Kendy Modi Work Phone: [facility] Work Phone: 09-07-2021 09:06-0500 Body mass index (BMI) [Ratio] 23.4 kg/m2 Dr. Kendy Modi Work Phone: [facility] Work Phone: 09-07-2021 09:06-0500 Body weight [address] Kendy Modi Work Phone: [facility] Work Phone: 07-23-2021 13:05-0500 Body mass index (BMI) [Ratio] 23 kg/m2 Dr. Kendy Modi Work Phone: [facility] Work Phone: 07-23-2021 13:05-0500 Body temperature 98.3 [degF] Dr. Kendy Modi Work Phone: [facility] Work Phone: 07-23-2021 13:05-0500 Body weight 66.[address] Kendy Modi Work Phone: [facility] Work Phone: 07-23-2021 13:05-0500 Diastolic blood pressure 81 mm[Hg] Dr. Kendy Modi Work Phone: [facility] Work Phone: 07-23-2021 13:05-0500 Heart rate 94 /min Dr. Kendy Modi Work Phone: [facility] Work Phone: 07-23-2021 13:05-0500 Respiratory rate 18 /min Dr. Kendy Modi Work Phone: [facility] Work Phone: 07-23-2021 13:05-0500 SaO2% (BldA) [Mass fraction] 95 % Dr. Kendy Modi Work Phone: [facility] Work Phone: 07-23-2021 13:05-0500 Systolic blood pressure 195 mm[Hg] Dr. Kendy Modi Work Phone: [facility] Work Phone: Encounters Encounter Date Encounter Type Care Provider Facility Start: 04-30-2025 End: 04-30-2025 Admission to same day surgery center Dr. Prateek Smith MD -Cut Off Tender Glass/Special Procedures Work Phone: Start: 04-30-2025 End: 04-30-2025 ambulatory Prateek Luis Facility:[facility] Start: 04-29-2025 ambulatory Prateek Luis Facility:[facility] Start: 04-29-2025 Non-patient / Non-visit [facility] Start: 04-24-2025 End: 04-24-[address] Dwayne Aldana MD Work Phone: [facility] Start: 04-24-2025 End: 04-24-[address] Dre De Los Santos MD -Laboratory [facility] Start: 04-24-2025 End: 04-24-2025 ambulatory Dre De Los Santos Facility:[facility] Start: 04-14-2025 ambulatory Tereza Brito NP Facili ty:[facility] Start: 04-14-2025 Non-patient / Non-visit Tereza Brito PULLBOAT ENGINEER-C -[facility] Work Phone: Start: 04-14-2025 End: 04-14-[address] Dwayne Aldana MD Work Phone: -Cardiovascular Services Start: 04-14-2025 End: 04-14-2025 Patient encounter procedure Tereza Brito PULLBOAT ENGINEER-C -Cardiovascular Services Work Phone: Start: 04-14-2025 End: 04-14-2025 ambulatory Tereza Brito NP Facility:[facility] Start: 03-17-2025 End: 03-17-2025 Patient encounter procedure Tereza Brito PULLBOAT ENGINEER-C -[facility] Work Phone: Start: 03-17-2025 End: 03-17-[address] Kendy Modi MD Work Phone: -[facility] Start: 03-17-2025 End: 03-17-2025 ambulatory Tereza Brito NP Facility:[facility] Start: 12-31-2024 End: 12-31-2024 Office outpatient visit 15 minutes Batool Au FIRE SUPPORT MAN.JUNIOR ANALYST Work Phone: Urology Comment on above: Suprapubic catheter (HCC) (Primary Dx); Chronic retention of urine; Type 2 diabetes mellitus with hyperglycemia, with long-term current use of insulin (HCC) Start: 12-31-2024 End: 12-31-2024 ambulatory BATOOL AU Facility:[facility] Start: 12-11-2024 End: 12-11-2024 Orders Only Serena Arnett MD Work Phone: External-Non[facility] Comment on above: Hyperkalemia Start: 12-09-2024 End: 12-09-2024 Patient encounter procedure Tereza Brito PULLBOAT ENGINEER-C -[facility] Work Phone: Start: 12-09-2024 End: 12-09-2024 ambulatory Tereza Brito PULLBOAT ENGINEER Facility:[facility] Start: 12-04-2024 ambulatory Vishal Samayoa Carlos PULLBOAT ENGINEER Facility :[facility] Start: 12-02-2024 End: 12-03-2024 Emergency department patient visit Ross Crump DO -Emergency Department Work Phone: Start: 11-28-2024 Non-patient / Non-visit Dr. Miguel Angel Montez DO [facility] Work Phone: Start: 11-28-2024 Dr. Miguel Angel Montez DO [facility] Work Phone: Start: 11-27-2024 Non-patient / Non-visit Dr. Miguel Angel Montez DO [facility] Work Phone: Start: 11-27-2024 Dr. Miguel Angel Montez DO [facility] Work Phone: Start: 11-26-2024 Non-patient / Non-visit Dr. Miguel Angel Montez DO [facility] Work Phone: Start: 11-26-2024 Dr. Miguel Angel Montez DO [facility] Work Phone: Start: 11-26-2024 ambulatory Pk Shin Facility:[facility] Start: 11-26-2024 Non-patient / Non-visit Dr. Pk Shin MD -[facility] Start: 11-26-2024 Dr. Pk Shin MD [facility] Start: 11-26-2024 ambulatory Vishal Samayoa Carlos PULLBOAT ENGINEER Facility :[facility] Start: 11-25-2024 Non-patient / Non-visit Dr. Miguel Angel Montez DO [facility] Work Phone: Start: 11-25-2024 Dr. Miguel Angel Montez DO [facility] Work Phone: Start: 11-24-2024 ambulatory Claudio ashtonty:[facility] Start: 11-24-2024 End: 11-28-2024 Evaluation and management of inpatient Dr. Kendy Modi MD Work Phone: [facility] Work Phone: Start: 11-24-2024 End: 11-28-2024 Dr. Claudio Devlin DO -Progressive Care Unit Work Phone: Start: 11-21-2024 ambulatory Cy Barry ity:[facility] Start: 11-19-2024 End: 11-19-[address] Kendy Modi MD Work Phone: [facility] Work Phone: Start: 11-19-2024 End: 11-19-[address] Kendy Modi MD -Laboratory Specimen Work Phone: Start: 11-19-2024 End: 11-19-2024 Dr. Kendy Modi MD -Laboratory, Specim en Work Phone: Start: 11-19-2024 End: 11-19-[address] Kendy Modi MD Work Phone: [facility] Work Phone: Start: 11-19-2024 End: 11-19-[address] Kendy Modi MD -Laboratory [facility] Start: 11-19-2024 End: 11-19-2024 Dr. Kendy Modi MD -Laboratory, [facility] Start: 11-19-2024 End: 11-19-2024 ambulatory Kendy Modi Facility:[facility] Start: 11-13-2024 End: 11-13-2024 Telephone encounter Everardo Yusuf APRN.JUNIOR ANALYST Work Phone: Hematology/Oncology Comment on above: Refill Request Start: 10-30-2024 End: 10-30-2024 Vishal Gonzalez NP-C -[facility] Work Phone: Start: 10-30-2024 End: 10-30-2024 ambulatory Vishal Gonzalez NP Facility:[facility] Start: 10-21-2024 End: 10-21-[address] Kendy Modi MD Work Phone: [facility] Work Phone: Start: 10-21-2024 End: 10-21-2024 Kendy Modi MD -[facility] Work Phone: Start: 10-21-2024 End: 10-21-2024 ambulatory Kendy Modi Facility:[facility] Start: 10-18-2024 Dr. Nicole Smith MD -[facility] Work Phone: Start: 10-17-2024 Dr. Nicole Smith MD -[facility] Work Phone: Start: 10-16-2024 Dr. Nicole Smith MD -[facility] Work Phone: Start: 10-15-2024 Dr. Nicole Smith MD -[facility] Work Phone: Start: 10-14-2024 Dr. Nicole Smith MD -[facility] Work Phone: Start: 10-13-2024 Dr. Prateek Smith MD [facility] Start: 10-13-2024 Dr. Matt Penny MD -[facility] Work Phone: Start: 10-12-2024 Dr. Matt Penny MD [facility] Work Phone: Start: 10-12-2024 Dr. Prateek Smith MD [facility] Start: 10-11-2024 Dr. Prateek Smith MD [facility] Start: 10-11-2024 Dr. Matt Penny MD [facility] Work Phone: Start: 10-10-2024 ambulatory Prateek Smith Facility:[facility] Start: 10-10-2024 Dr. Reagan Fatima DO -[facility] Start: 10-10-2024 End: 10-18-2024 Evaluation and management of inpatient Dr. Kendy Modi MD Work Phone: [facility] Work Phone: Start: 10-10-2024 ambulatory Kendra Yuan Facility :[facility] Start: 10-10-2024 End: 10-18-2024 Dr. Nicole Smith MD -Progressive Care Un it Work Phone: Start: 09-20-2024 End: 10-02-2024 Refill Everardo Yusuf FIRE SUPPORT MAN.JUNIOR ANALYST Work Phone: Hematology/Oncology Comment on above: Refill Request Start: 09-13-2024 End: 09-17-2024 Telephone encounter Kenzie Drew FIRE SUPPORT MAN.JUNIOR ANALYST, DNP Work Phone: Urology Comment on above: Orders Start: 09-09-2024 End: 09-10-2024 Telephone encounter Edgardo Hurtado [facility] Comment on above: Home Care Start: 09-09-2024 End: 09-09-2024 ambulatory KENZIE DREW Facility:[facility] Start: 09-09-2024 End: 09-09-2024 Patient encounter procedure Kenzie Drew FIRE SUPPORT MAN.JUNIOR ANALYST, DNP Work Phone: Urology Comment on above: Chronic suprapubic c atheter (HCC) (Primary Dx) Start: 08-28-2024 Dr. Catherine Barton MD [facility] Work Phone: Start: 08-27-2024 Dr. Catherine Barton MD - [facility] Work Phone: Start: 08-26-2024 Dr. Catherine Barton MD - [facility] Work Phone: Start: 08-25-2024 ambulatory Ling Logan [facility] Start: 08-25-2024 End: 08-28-2024 Evaluation and management of inpatient Chris Alfaroninger Facility:[facility] Start: 08-25-2024 End: 08-28-2024 Dr. Catherine Barton MD -Progressive Care Unit Work Phone: Start: 08-14-2024 ambulatory Matt Zohaib Facility: [facility] Start: 07-29-2024 End: 07-29-2024 ambulatory KENDY NANDO MODI Facility:[facility] Start: 07-11-2024 End: 07-11-2024 ambulatory Hortensia Arana RN [facility] Rad[facility] Comment on above: You are scheduled fo r a suprapubic catheter placement on 07/29/24 at 10:30 am Start: 07-11-2024 End: 07-11-2024 E-mail encounter from caregiver Hortensia Arana RN [facility] Start: 07-03-2024 End: 07-03-2024 Admission to same day surgery center I Forest Galarza MD Work Phone: Colorectal Surgery Comment on above: History of rectal ca ncer (Primary Dx) Start: 07-03-2024 End: 07-03-2024 ambulatory Daniel GALARZA Facility:[facility] Start: 07-03-2024 End: 07-03-2024 Telemedicine consultation with patient Daniel Forest Galarza MD Work Phone: Colorectal Surgery Start: 06-28-2024 End: 06-28-2024 Telephone encounter Flower Villanueva RN Colorectal Surgery Start: 06-27-2024 End: 06-27-2024 Telephone encounter Gregorio Villalobos RN General Surgery Comment on above: Returning Patient's Call Start: 06-20-2024 End: 06-20-2024 Admission to same day surgery center Melanie Yang APRN.JUNIOR ANALYST Work Phone: Colorectal Surgery Comment on above: High output ileostom y (HCC) (Primary Dx) Start: 06-20-2024 End: 06-20-2024 ambulatory MELANIE YANG Facility:[facility] Start: 06-20-2024 End: 06-20-2024 Telemedicine consultation with patient Melaniebertha Yang BALTAZAR.JUNIOR ANALYST Work Phone: Colorectal Surgery Start: 06-17-2024 End: 06-17-2024 ambulatory SAGE GONZALEZ Facility:[facility] Start: 06-12-2024 End: 06-12-2024 ambulatory Hortensia Arana RN [facility] Comment on above: You are scheduled fo r a suprapubic catheter placement on 06/27/24 at 10:30 am Retention of urine ( Primary Dx) Start: 06-12-2024 End: 06-12-2024 E-mail encounter from caregiver Hortensia Arana RN [facility] Start: 06-11-2024 End: 06-11-2024 Telephone encounter Pebbles Barfield MD Work Phone: Urology Comment on above: IR SPT scheduling Start: 06-04-2024 End: 06-04-2024 Patient encounter procedure Melanie Yang BALTAZAR.JUNIOR ANALYST Work Phone: Colorectal Surgery Comment on above: 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); S/P exploratory laparotomy Start: 06-04-2024 End: 06-04-2024 ambulatory FOREST KIMBLE Facility:[facility] Start: 05-31-2024 End: 05-31-2024 ambulatory PEBBLES ROCKLAND Facility:[facility] Start: 05-31-2024 End: 05-31-2024 Office outpatient visit 25 minutes Pebbles Barfield MD Work Phone: Urology Comment on above: Retention of urine ( Primary Dx) Start: 05-30-2024 ambulatory Prateek Luis [facility] Start: 05-28-2024 ambulatory Prateek Luis [facility] Start: 05-28-2024 End: 05-28-2024 ambulatory Prateek Luis Facility:[facility] Start: 05-21-2024 End: 05-21-2024 ambulatory Prateek Luis Facility:[facility] Start: 05-03-2024 End: 05-03-2024 [facility] Start: 05-03-2024 End: 05-03-2024 Nursing evaluation of patient and report [facility] Work Phone: Colorectal Surgery Comment on above: Attention to ileosto my (HCC) (Primary Dx) Start: 05-02-2024 End: 05-02-2024 ambulatory PEBBLES RUCHI Facility:[facility] Start: 05-02-2024 End: 05-02-2024 Nursing evaluation of patient and report [facility] Urology Comment on above: Retention of urine ( Primary Dx); Urge incontinence Start: 04-12-2024 End: 04-12-2024 Telephone encounter Pebbles Barfield MD Work Phone: [place] [facility] Adult Comment on above: Orders; Results Start: 04-10-2024 End: 04-10-2024 ambulatory PEBBLES BARFIELD Facility:[facility] Start: 04-10-2024 End: 04-10-2024 Nursing evaluation of patient and report [facility] U[facility] Comment on above: Retention of urine ( Primary Dx); Gross hematuria Start: 03-11-2024 End: 03-11-2024 ambulatory KENZIE DREW Facility:[facility] Start: 03-11-2024 End: 03-11-2024 Office outpatient new 45 minutes Kenzie Drew FIRE SUPPORT MAN.JUNIOR ANALYST, DNP Work Phone: Urology Comment on above: [...] of inpatient Dr. Kendy Modi Work Phone: [facility] 3 Work Phone: Start: 12-01-[address] Kendy chris Work Phone: [facility] Start: 11-29-2023 End: 11-29-2023 Emergency department patient visit Dr. Kendy Modi Work Phone: [facility]-Emergency Department Work Phone: Start: 11-29-[address] Kendy chris Work Phone: [facility] Start: 11-12-2023 End: 11-28-2023 Evaluation and management of inpatient Dalton Mandujano MD Work Phone: [facility]5 Start: 2023 End: 11-12-2023 Emergency department patient visit Dr. Kendy Modi Work Phone: [facility]-Emergency Department Work Phone: Start: 10-16-2023 End: 10-16-[address] Kendy Modi Work Phone: [facility] Work Phone: Start: 10-16-2023 End: 10-16-[address] Kendy Modi Work Phone: [facility] Start: 09-07-2023 End: 09-07-[address] 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); Peristomal hernia Start: 07-19-2023 ambulatory KENDY MODI Facility: [facility] Start: 07-03-2023 Refill Everardo kumar FIRE SUPPORT MAN.JUNIOR ANALYST Work Phone: Hematology/Oncology Comment on above: Refill Request Start: 06-25-2023 Refill Dwayne Nolasco Work Phone: Hematology/Oncology Comment on above: Refill Request Start: 06-21-2023 End: 06-21-2023 ambulatory Everardo Yusuf APRN.JUNIOR ANALYST Work Phone: Hematology/Oncology Comment on above: Rectal cancer (HCC) (Primary Dx) Start: 06-21-2023 End: 06-21-2023 Patient encounter procedure Everardo Yusuf FIRE SUPPORT MAN.JUNIOR ANALYST Work Phone: [facility] Start: 06-15-2023 End: 06-15-2023 Subsequent hospital visit by physician [facility] (I-Stat) Work Phone: Cat Scan Comment on above: Rectal cancer (HCC) [C20] Start: 05-26-2023 Telephone encounter Everardo del rio FIRE SUPPORT MAN.JUNIOR ANALYST Work Phone: Hematology/Oncology Comment on above: Patient Question Start: 05-24-2023 End: 05-24-2023 Office outpatient visit 40 minutes Angeli Zarate DO Work Phone: General [facility] Gastrointestinal Surgery [facility] [place] Comment on above: Colostomy complicati on Start: 05-24-2023 ambulatory KENDY MODI Facility: [facility] Start: 03-24-2023 ambulatory KENDY MODI Facility:[facility] Start: 03-12-2023 Non-patient / Non-visit Dr. Kendy Modi Work Phone: [facility] Work Phone: Start: 03-11-2023 Non-patient / Non-visit Dr. Kendy Modi Work Phone: [facility] Work Phone: Start: 03-10-2023 End: 03-12-2023 Evaluation and management of inpatient Dr. Kendy Modi Work Phone: [facility]-Progressive Care Unit Work Phone: Start: 03-10-2023 End: 03-12-[address] Kendy Modi Work Phone: [facility] Work Phone: Start: 01-23-2023 End: 01-23-[address] Kendy Modi Work Phone: [facility] Work Phone: Start: 10-07-2022 End: 10-07-[address] Kendy Modi Work Phone: [facility] Work Phone: Start: 10-07-2022 End: 10-07-[address] Kendy Modi Work Phone: [facility] Start: 10-05-2022 End: 10-05-[address] Kendy Modi Work Phone: [facility] Work Phone: Start: 10-05-2022 End: 10-05-[address] Kendy Modi Work Phone: [facility] Start: 07-15-2022 End: 07-15-[address] Kendy Modi Work Phone: [facility] Start: 05-11-2022 End: 05-11-2022 Nursing evaluation of patient and report [facility] Work Phone: Colorectal Surgery Comment on above: Attention to colosto my (HCC) (Primary Dx) Start: 05-11-2022 End: 05-11-2022 Patient encounter procedure I Forest Galarza MD Work Phone: Colorectal Surgery Comment on above: History of rectal ca ncer (Primary Dx) Start: 04-24-2022 Refill Dwayne Nolasco Work Phone: Hematology/Oncology Comment on above: Refill Request Start: 03-15-2022 End: 03-15-2022 Subsequent hospital visit by physician Mr Millicent Ramirez (Istat/3t) Work Phone: [facility] Radiology MRI Comment on above: Rectal cancer (HCC) [C20] Start: 12-13-2021 End: 12-13-2021 ambulatory Everardo Yusuf APRN.JUNIOR ANALYST Work Phone: Hematology/Oncology Comment on above: Rectal cancer (HCC) (Primary Dx); Abnormal MRI, liver Start: 12-13-2021 End: 12-13-2021 Patient encounter procedure Everardo Yusuf APRN.CNP Work Phone: [facility] Start: 12-09-2021 End: 12-09-2021 Subsequent hospital visit by physician [facility] (I-Stat/1.5t) Work Phone: Radiology Comment on above: Rectal cancer (HCC) [C20] Start: 11-23-2021 Telephone encounter Everardo del rio APRN.JUNIOR ANALYST Work Phone: Hematology/Oncology Comment on above: Results Start: 11-22-2021 End: 11-22-2021 Subsequent hospital visit by physician [facility] Cat Scan Comment on above: Rectal cancer (HCC) [C20] Start: 11-19-2021 Orders Only Dwayne Nolasco Work Phone: Hematology/Oncology Comment on above: Rectal cancer (HCC) (Primary Dx) Start: 10-27-2021 Non-patient / Non-visit Dr. Kendy Modi Work Phone: [facility] Start: 10-27-2021 End: 10-27-[address] Kendy Modi Work Phone: [facility]Cardi[facility] Start: 10-15-2021 End: 10-15-[address] Kendy Modi Work Phone: [facility] Start: 09-29-2021 Non-patient / Non-visit Dr. Kendy Modi Work Phone: [facility] Start: 09-28-2021 Non-patient / Non-visit Dr. Kendy Modi Work Phone: [facility] Start: 09-27-2021 Non-patient / Non-visit Dr. Kendy Modi Work Phone: [facility] Start: 09-27-2021 Non-patient / Non-visit Dr. Kendy Modi Work Phone: [facility] Start: 09-26-2021 Non-patient / Non-visit Dr. Kendy Modi Work Phone: [facility] Start: 09-26-2021 Non-patient / Non-visit Dr. Kendy Modi Work Phone: [facility] Start: 09-25-2021 Non-patient / Non-visit Dr. Kendy Modi Work Phone: [facility] Start: 09-25-2021 Non-patient / Non-visit Dr. Kendy Modi Work Phone: [facility] Start: 09-24-2021 Non-patient / Non-visit Dr. Kendy Modi Work Phone: [facility] Start: 09-24-2021 Non-patient / Non-visit Dr. Kendy Modi Work Phone: [facility] Start: 09-24-2021 End: 09-29-2021 Evaluation and management of inpatient Dr. Kendy Modi Work Phone: [facility]-Progressive Care Unit Start: 09-23-2021 End: 09-23-2021 Emergency department patient visit Dr. Kendy Modi Work Phone: [facility]-Emergency Department Start: 09-23-2021 Non-patient / Non-visit Dr. Kendy Modi Work Phone: [facility] Start: 09-07-2021 Non-patient / Non-visit Dr. Kendy Modi Work Phone: [facility] Start: 09-07-2021 End: 09-07-2021 Admission to same day surgery center Dr. Kendy Modi Work Phone: [facility]-Endoscopy Start: 07-23-2021 End: 07-23-[address] Kendy Modi Work Phone: [facility] Start: 01-02-2015 End: 01-03-2015 Evaluation and management of inpatient KENZIE BARDALES Facility:[facility] Procedures Date Procedure Procedure Detail Performing Clinician Start: 04-30-2025 Coagulation time, activated Dr. Dwayne Aldana MD Work Phone: Start: 04-28-2025 Radiologic exam ches t [address] Dwayne Aldana MD Work Phone: Start: 04-24-2025 Prostate specific an tigen measurement Dr. Dwayne Aldana MD Work Phone: Comment on above: This test was perfor med using the [employer] tPSA method. Measured values of a patient sample can vary depending on the testing procedure used. PSA values determined on patient samples by different testing procedures cannot be used interchangeably. If there is a change in PSA assays while monitoring therapy, sequential testing should be performed to confirm baseline values. Start: 04-14-2025 Cardiovascular stres s test using pharmacologic stress agent Dr. Dwayne Aldana MD Work Phone: Start: 12-02-[address] Kendy [...] Phone: Start: 11-24-[address] Kendy cortez MD Work Phone: Start: 11-19-2024 Urine culture [...] Phone: Start: 08-25-2024 Plain chest X-ray Dr. Setffi Modi MD Work Phone: Start: 08-25-2024 CT [...] Work Phone: Start: 11-28-2023 Glucose measurement, blood Bomo Frod MD Work Phone: Start: 11-28-2023 Transthoracic echocardiography Jaleel Eyer FIRE SUPPORT MAN-JUNIOR ANALYST Work Phone: Start: 11-28-2023 CONTINUOUS CARDIAC MONITORING STRIP Other Other Start: 11-28-2023 Glucose measurement, blood Boom Ford MD Work Phone: Start: 11-28-2023 Assay of magnesium Loren Tan [facility] Work Phone: Start: 11-27-2023 Glucose measurement, blood Boom Ford MD Work Phone: Start: 11-27-2023 Glucose measurement, blood Boom Ford MD Work Phone: Start: 11-27-2023 Glucose measurement, blood Boom Ford MD Work Phone: Start: 11-27-2023 Glucose measurement, blood Boom Ford MD Work Phone: Start: 11-27-2023 Assay of magnesium Loren Tan PAC Work Phone: Start: 11-26-2023 Glucose measurement, blood Boom Ford MD Work Phone: Start: 11-26-2023 Glucose measurement, blood Boom Ford MD Work Phone: Start: 11-26-2023 Glucose measurement, blood Boom Ford MD Work Phone: Start: 11-26-2023 CONTINUOUS CARDIAC MONITORING STRIP Other Other Start: 11-26-2023 Assay of magnesium Loren Tan PAC Work Phone: Start: 11-25-2023 Glucose measurement, blood Boom Ford MD Work Phone: Start: 11-25-2023 End: 11-25-2023 Glucose measurement, blood Boom haile MD Work Phone: Start: 11-25-2023 Glucose measurement, blood Boom Ford MD Work Phone: Start: 11-25-2023 Assay of magnesium Loren Simon Dominick PAC Work Phone: Start: 11-24-2023 Glucose measurement, blood Boom Ford MD Work Phone: Start: 11-24-2023 Glucose measurement, blood Boom Ford MD Work Phone: Start: 11-24-2023 Glucose measurement, blood Boom Ford MD Work Phone: Start: 11-24-2023 Blood gases any combination ph pco2 po2 co2 hco3 Jaleel Eyer FIRE SUPPORT MAN-JUNIOR ANALYST Work Phone: Start: 11-24-2023 Glucose measurement, blood Boom Ford MD Work Phone: Start: 11-24-2023 CONTINUOUS CARDIAC MONITORING STRIP Other Other Start: 11-24-2023 Glucose measurement, blood Boom Ford MD Work Phone: Start: 11-24-2023 Blood gases any combination ph pco2 po2 co2 hco3 Jaleel Eyer FIRE SUPPORT MAN-JUNIOR ANALYST Work Phone: Start: 11-24-2023 Assay of magnesium Walterw naman Simon Dominick PAC Work Phone: Start: 11-23-2023 CONTINUOUS CARDIAC [...] Radiologic exam ches t single view Maciel R Mo PAC Work Phone: Start: 11-23-2023 Blood gases any combination ph pco2 po2 co2 hco3 Nimo Irizarry PAC Work Phone: Start: 11-23-2023 Glucose measurement, blood Boom Ford MD Work Phone: Start: 11-23-2023 Assay of magnesium Maxw naman Tan PAC Work Phone: Start: 11-22-2023 [...] IP CONSULT TO SPEECH THERAPY Valerie Morales FIRE SUPPORT MAN-JUNIOR ANALYST Work Phone: Start: 11-22-2023 CONTINUOUS CARDIAC MONITORING STRIP Other Other Start: 11-22-2023 Glucose measurement, blood Boom Ford MD Work Phone: Start: 11-22-2023 Radiologic exam ches t single view Valerie Morales FIRE SUPPORT MAN-JUNIOR ANALYST Work Phone: Start: 11-22-2023 Assay of magnesium Loren Simon Dominick PAC Work Phone: Start: 11-21-2023 Glucose measurement, [...] 11-21-2023 Ct angiography head w/contrast/noncontrast Hayde Lopez FIRE SUPPORT MAN-JUNIOR ANALYST Work Phone: Start: 11-21-2023 Glucose measurement, blood Boom Ford MD Work Phone: Start: 11-21-2023 Blood count platelet automated Valerie Hebertremiconstance FIRE SUPPORT MAN-JUNIOR ANALYST Work Phone: Start: 11-21-2023 Radiologic exam ches t single view Carla Rosey Tre PAC Work Phone: Start: 11-21-2023 Glucose measurement, blood Boom Ford MD Work Phone: Start: 11-21-2023 Thromboplastin time partial plasma/whole blood Boom Ford MD Work Phone: Start: 11-21-2023 Glucose measurement, blood Boom Ford MD Work Phone: Start: 11-21-2023 Assay of magnesium Logan Macdonald FI[employer] SUPPORT MAN-JUNIOR ANALYST Work Phone: Start: 11-20-2023 Glucose measurement, blood Boom Ford MD Work Phone: Start: 11-20-2023 ACT* LOW RANGE, POC Alon Ford MD Work Phone: Start: 11-20-2023 Cath plmt l hrt & ar ts w/njx & angio img s&i Donna Bailey FIRE SUPPORT MAN-JUNIOR ANALYST Work Phone: Start: 11-20-2023 Us vasc access sits vsl patency ndl entry Donna Bailey FIRE SUPPORT MAN-JUNIOR ANALYST Work Phone: Start: 11-20-2023 ACT* LOW RANGE, POC Alon Ford MD Work Phone: Start: 11-20-2023 Glucose measurement, blood Boom Ford MD Work Phone: Start: 11-20-2023 End: 11-20-2023 Thromboplastin time partial plasma/whole blood Boom Ford MD Work Phone: Start: 11-20-2023 End: 11-20-2023 Assay of magnesium Cherelle Carter MD Work Phone: Start: 11-20-2023 Dup-scan xtr veins complete bilateral study Jose Eduardo Kumar Papito PAC Work Phone: Start: 11-20-2023 End: 11-20-2023 [...] Start: 11-20-2023 Assay of magnesium Logan Macdonald FIRE SUPPORT MAN-JUNIOR ANALYST Work Phone: Start: 11-19-2023 Thromboplastin time partial [...] exam ches t single view Michael Valdovinos [facility] Work Phone: Start: 11-19-2023 Assay of troponin quantitative Baltazar Franco MD Work Phone: Start: 11-19-2023 Glucose measurement, blood Boom Ford MD Work Phone: Start: 11-19-2023 Assay of magnesium Logan Valdovinos [facility] Work Phone: Start: 11-19-2023 Blood gases any combination ph pco2 po2 co2 hco3 Michael Valdovinos [facility] Work Phone: Start: 11-18-2023 Radiologic exam ches [...] Work Phone: Start: 11-17-2023 Assay of magnesium Mayank Donnelly MD Work Phone: Start: 11-17-2023 Glucose [...] Performed By: #### X M #### [facility] ([facility]) [address] [place] [address] Start: 11-16-2023 Blood typing serologic abo Kristan [...] Thromboplastin time partial plasma/whole blood Brian Self FI[employer] SU[employer] MAN-JUNIOR ANALYST Work Phone: Start: 11-14-2023 Glucose measurement, blood Joselito Mora MD Work Phone: Start: 11-14-2023 Myocardial spect mul tiple studies Fartun NowForceathee FIRE SUPPORT MANTastyNow.comJUNIOR ANALYST Work Phone: Start: 11-14-2023 Thromboplastin time partial plasma/whole blood Fartun Tripathee FIRE SUPPORT MAN-JUNIOR ANALYST Work Phone: Start: 11-14-2023 Glucose measurement, blood Joselito Mora MD Work Phone: Start: 11-14-2023 CONTINUOUS CARDIAC MONITORING STRIP Other Other Start: 11-14-2023 Assay of magnesium Maryr maria de jesus Self FI[employer] SUPPORT MAN-JUNIOR ANALYST Work Phone: Start: 11-13-2023 Glucose measurement, blood Joselito Mora MD Work Phone: Start: 11-13-2023 Thromboplastin time partial plasma/whole blood Fartun Tripathee FI[employer] SUPPORT MAN-JUNIOR ANALYST Work Phone: Start: 11-13-2023 Blood count complete automated Fartun Contrerasathee FIRE SUPPORT MAN-JUNIOR ANALYST Work Phone: Start: 11-13-2023 Glucose measurement, blood [...] Mri brain brain stem w/o w/contrast material Trixiewinston sotelo Leach FIRE SUPPORT MAN-JUNIOR ANALYST Work Phone: Start: 11-12-2023 Glucose measurement, blood Joey Thomson MD Work Phone: Start: 11-12-2023 C-reactive protein Asmita sa Ji de Leach FIRE SUPPORT MAN-JUNIOR ANALYST Work Phone: Start: 11-12-2023 Sedimentation rate r bc automated Trixiewinston Ji de Leach FIRE SUPPORT MAN-JUNIOR ANALYST Work Phone: Start: 11-12-2023 EXTRA MICRO Trixie Gar justus de Leach FIRE SUPPORT MAN-JUNIOR ANALYST Work Phone: Start: 11-12-2023 URINALYSIS REFLEX TO CULTURE Jordan Cardenas MD Work Phone: Start: 11-12-2023 Urnls dip stick/tabl et reagent auto microscopy Trixie sotelo Leach FIRE SUPPORT MAN-JUNIOR ANALYST Work Phone: Start: 11-12-2023 Radiologic exam ches t 2 views Trixiewinston sotelo Leach FIRE SUPPORT MAN-JUNIOR ANALYST Work Phone: Start: 11-12-2023 Duplex scan extracra [...] abdomen w/o & w/contrast material Everardo Yusuf FI[employer] SUPPORT MAN.JUNIOR ANALYST Work Phone: Start: 03-15-2022 Creatinine [Mass/vol ume] in Serum or Plasma [facility] Provider Start: 12-09-2021 Mri abdomen w/o & w/contrast material Everardo Yusuf FI[employer] SUPPORT MAN.JUNIOR ANALYST Work Phone: Start: 11-22-2021 Ct abdomen & pelvis w/contrast material Everardo Yusuf FI[employer] SUPPORT MAN.JUNIOR ANALYST Work Phone: Start: 11-22-2021 Ct thorax w/contrast material Everardo Yusuf FIRE SUPPORT MAN.JUNIOR ANALYST Work Phone: Start: 10-27-2021 Cardiovascular stres s [...] Phone: Start: 05-02-2019 Colonoscopy Everardo del rio APRNHildaJUNIOR ANALYST Work Phone: Start: 01-02-2015 History of placement of stent for coronary artery disease History of coronary artery stent placement Vishal Gonzalez PULLBOAT ENGINEER-C Comment on above: DBA-FOY-HMF-Ramus Start: 01-02-2015 INS DRUG-ELUT COR STENT PROVIDER UNKNOWN Start: 01-02-2015 INSERTION OF 1 VSC STENT PROVIDER UNKNOWN Start: 01-02-2015 Other and unspecifie d coronary arteriography PROVIDER UNKNOWN Start: 01-02-2015 Percutaneous translu camila coronary angioplasty [PTCA] PROVIDER UNKNOWN Start: 01-02-2015 PROCEDURE ON SINGLE VESS PROVIDER UNKNOWN Start: 05-30-2008 History of coronary artery bypass grafting H/O coronary artery bypass surgery Vishal Gonzalez PULLBOAT ENGINEER-C Comment on above: CABG x 5 05/30/2008 ZUNIGA-LAD and D1, Free KIMBERLYN-PDA, SVG-Ramus, SVG-OM1 H/O: surgery S/P exploratory laparotomy Forest Kimble MD Work Phone: H/O: surgery Dr. Kendy Modi MD Work Phone: Plan of Treatment Date Care Activity Detail Author Start: 11-12-2028 Lipid panel [facility] Start: 05-31-2025 BP Controlled (<130/80) BP Controlled (<130/80) [facility] Start: 04-30-2025 Patient discharge [facility] Start: 03-11-2025 COLORECTAL CANCER SCREENING COLORECTAL CANCER SCREENING [facility] Start: 03-11-2025 Screening for malignant neoplasm of colon [facility] Start: 03-11-2025 SIGMOIDOSCOPY SIGMOIDOSCOPY [facility] Start: 01-22-2025 End: 01-22-2025 Patient encounter procedure 01/22/2025 10:00 AM EDT Office Visit Colorectal Surgery [address] [place] [address] Daniel Galarza MD [address] [place] [address] DISCUSS REVERSAL/ FOLLOW UP Colorectal Surgery Comment on above: DISCUSS REVERSAL/ FOLLOW UP Start: 01-22-2025 End: 01-22-2025 Nursing evaluation of patient and report 01/22/2025 9:15 AM EDT Nurse Visit Colorectal Surgery [address] [address] Therapy, [place] [address] [place] [address] STOMA F/U PER HUBER PATIENT NURSE Colorectal Surgery Comment on above: STOMA F/U PER HUBER PATIENT NURSE Start: 01-10-2025 Basic metabolic 2000 panel - Serum or Plasma BASIC METABOLIC PANEL Lab Routine Hyperkalemia Expected: 01/10/2025 [facility] Work Phone: Comment on above: Expected: 01/10/2025 Start: 01-10-2025 Protein/Creatinine [Mass Ratio] in Urine PROTEIN / CREATININE RATIO Lab Routine Hyperkalemia Expected: 01/10/[address] [facility] Comment on above: Expected: 01/10/2025 Start: 12-31-2024 End: 12-31-2024 Patient encounter procedure 12/31/2024 2:40 PM EDT Office Visit Urology [address] [address] Batool Au APRN.JUNIOR ANALYST [address] [place] [address] 3 month follow up Urology Comment on above: 3 month follow up Start: 12-31-2024 Creatinine measurement Serum Creatinine [facility] Start: 12-28-2024 Creatinine measurement Serum Creatinine [facility] Start: 12-09-2024 End: 12-09-2024 Patient encounter procedure 12/09/2024 3:30 PM EDT Office Visit Urology [address] [address] Kenzie Drew APRN.JUNIOR ANALYST, DNP [address] [place] [address] 3 month follow up Urology Comment on above: 3 month follow up Start: 12-06-2024 Screening for malignant neoplasm of colon Colonoscopy [facility] Start: 12-03-2024 [facility] Start: 11-30-2024 Diabetic foot examination Diabetic Foot Exam [facility] Start: 11-28-2024 Patient discharge [facility] Start: 11-28-2024 Consultation for treatment [facility] Start: 11-25-2024 [facility] Start: 11-25-2024 Following clinical pathway protocol [facility] Start: 11-25-2024 Triacylglycerol lipase measurement [facility] Start: 11-24-2024 Referral to service dog trainer [facility] Start: 11-24-2024 Ambulation without limitation [facility] Start: 11-24-2024 Assessment of risk of venous thromboembolism [facility] Start: 11-24-2024 Care regimes management [facility] Start: 11-24-2024 Incentive spirometry [facility] Start: 11-24-2024 Insertion of catheter into peripheral vein [facility] Start: 11-24-2024 Measuring intake and output [facility] Start: 11-24-2024 Notification of physician [facility] Start: 11-24-2024 Oxygen therapy [facility] Start: 11-24-2024 Providing care according to standard [facility] Start: 11-24-2024 Referral to occupational therapist [facility] Start: 11-24-2024 Referral to service [facility] Start: 11-24-2024 End: 11-24-2024 [facility] Start: 11-24-2024 Verification routine [facility] Start: 11-24-2024 Admission procedure [facility] Start: 11-24-2024 Hospital admission, emergency, from emergency room, medical nature [facility] Start: 11-24-2024 Enteric precautions [facility] Start: 2024 Hepatitis B surface antibody level LDL Cholesterol [facility] Start: 10-18-2024 Patient discharge [facility] Start: 10-17-2024 Referral to service [facility] Start: 10-15-2024 Consultation for treatment [facility] Start: 10-12-2024 [facility] Start: 10-12-2024 Application of intermittent pneumatic compression device [facility] Start: 10-11-2024 Consultation [facility] Start: 10-11-2024 Referral to service dog trainer [facility] Start: 10-11-2024 [facility] Start: 10-10-2024 Care planning and problem solving actions [facility] Start: 10-10-2024 Following clinical pathway protocol [facility] Start: 10-10-2024 Application of elastic bandage [facility] Start: 10-10-2024 Aspiration precautions [facility] Start: 10-10-2024 Assessment of risk of venous thromboembolism [facility] Start: 10-10-2024 Care regimes management [facility] Start: 10-10-2024 Consultation [facility] Start: 10-10-2024 Continuous pulse oximetry [facility] Start: 10-10-2024 Elevation of affected extremity [facility] Start: 10-10-2024 Fall prevention [facility] Start: 10-10-2024 Inhalation therapy procedure [facility] Start: 10-10-2024 Insertion of catheter into peripheral vein [facility] Start: 10-10-2024 Measuring intake and output [facility] Start: 10-10-2024 Notification of physician [facility] Start: 10-10-2024 Oxygen therapy [facility] Start: 10-10-2024 Patient education [facility] Start: 10-10-2024 Patient referral to dietitian [facility] Start: 10-10-2024 Providing care according to standard [facility] Start: 10-10-2024 Provision of activity privileges [facility] Start: 10-10-2024 Referral to spring tacker [facility] Start: 10-10-2024 Referral to occupational therapist [facility] Start: 10-10-2024 Referral to service [facility] Start: 10-10-2024 Tobacco use cessation education [facility] Start: 10-10-2024 Vital signs measurements [facility] Start: 10-10-2024 End: 10-10-2024 [facility] Start: 10-10-2024 Admission procedure [facility] Start: 10-10-2024 Dual pressure spontaneous ventilation support [facility] Start: 10-10-2024 [facility] Start: 10-10-2024 Patient referral to dietitian [facility] Start: 10-10-2024 [facility] Start: 08-28-2024 Referral to service [facility] Start: 08-28-2024 Patient discharge [facility] Start: 08-27-2024 Speech therapy assessment [facility] Start: 08-26-2024 End: 08-27-2024 [facility] Start: 08-26-2024 Contact precautions [facility] Start: 08-26-2024 Consultation for treatment [facility] Start: 08-26-2024 Consultation [facility] Start: 08-26-2024 End: 08-26-2024 [facility] Start: 08-26-2024 Notification of physician [facility] Start: 08-26-2024 Care regimes management [facility] Start: 08-25-2024 Assessment of risk of venous thromboembolism [facility] Start: 08-25-2024 Consultation [facility] Start: 08-25-2024 Inhalation therapy procedure [facility] Start: 08-25-2024 Insertion of catheter into peripheral vein [facility] Start: 08-25-2024 Measuring intake and output [facility] Start: 08-25-2024 Patient referral to dietitian [facility] Start: 08-25-2024 Providing care according to standard [facility] Start: 08-25-2024 Provision of activity privileges [facility] Start: 08-25-2024 Referral to occupational therapist [facility] Start: 08-25-2024 Referral to service [facility] Start: 08-25-2024 [facility] Start: 08-25-2024 Following clinical pathway protocol [facility] Start: 08-25-2024 Hospital admission, emergency, from emergency room, medical nature [facility] Start: 08-25-2024 Admission procedure [facility] Start: 08-12-2024 End: 08-12-2024 Patient encounter procedure 08/12/2024 11:00 AM EST Office Visit Gastroenterology [address] [id number] Becca Cano MD [facility] [address] [phone] cgrt page [id number] Gastroenterology Comment on above: cgrt page [id number] Start: 08-12-2024 End: 08-12-2024 ambulatory 08/12/2024 10:00 AM EST Education Gastroenterology [address] [id number] Dietitian, Cgrt [address] [place] [id number] cgrt page [phone] Gastroenterology Comment on above: cgrt page [id number] Start: 08-07-2024 Advance Directive Discussion Advance Directive Discussion [facility] Start: 07-29-2024 End: 07-29-2024 Admission to same day surgery center 07/29/2024 10:30 AM EST - 07/29/2024 12:00 PM EST Surgery [facility] Radiology [address] [place] [address] [place], [address] [address] [id number] INSERTION CATHETER SUPRAPUBIC [facility] Comment on above: INSERTION CATHETER SUPRAPUBIC Start: 07-29-2024 End: 07-29-2024 Aspiration bladder insert suprapubic catheter INSERTION CATHETER SUPRAPUBIC Retention of urine 07/29/2024 10:30 AM EST ME IR Start: 07-29-2024 Subsequent hospital visit by physician 07/29/2024 10:30 AM EST Hospital Encounter [facility] [address] [place] [address] [place] [address] [address] [id number] Retention of urine [R33.9] [facility] Comment on above: Retention of urine [R33.9] Start: 07-03-2024 End: 07-03-2024 Admission to same day surgery center 07/03/2024 3:40 PM EST [facility] Colorectal Surgery [address] [address] Daniel Galarza MD [address] [place] [phone] history of rectal cancer/ileostomy. pt wants to [...] PM EST Office Visit Colorectal Surgery [address] [address] Daniel Galarza MD [address] [place] [address] history of rectal cancer/ileostomy Colorectal Surgery Comment on above: history of rectal cancer/ileostomy Start: 06-27-2024 End: 06-27-2024 Admission to same day surgery center 06/27/2024 10:30 AM EST - 06/27/2024 12:00 PM EST Surgery [facility] [address] [place] [address] [place] [address] [place] [address] INSERTION CATHETER SUPRAPUBIC [facility] Comment on above: INSERTION CATHETER SUPRAPUBIC Start: 06-27-2024 End: 06-27-2024 Aspiration bladder insert suprapubic catheter INSERTION CATHETER SUPRAPUBIC Retention of urine 06/27/2024 10:30 AM EST ME IR Start: 06-27-2024 Subsequent hospital visit by physician 06/27/2024 10:30 AM EST Hospital Encounter [facility]iology [address] [place] [address] [place] [address] [address] Retention of urine [R33.9] [facility] Comment on above: Retention of urine [R33.9] Start: 06-20-2024 End: 06-20-2024 Follow-up encounter 06/20/2024 4:00 PM [facility] Colorectal Surgery [address] [address] Melanie Yang APRN.JUNIOR ANALYST [address] [place] [address] Stoma output follow up Colorectal Surgery Comment on above: Stoma output follow up Start: 06-15-2024 Serum Creatinine Serum Creatinine [facility] Start: 06-12-2024 End: 09-11-2024 CBC W Auto Differential panel - Blood COMPLETE BLOOD COUNT AND DIFFERENTIAL Lab STAT Retention of urine Expected: 06/12/2024, Expires: 09/11/[address] [facility] Comment on above: Expected: 06/12/2024, Expires: Start: 06-12-2024 End: 09-11-2024 PT panel - Platelet poor plasma by Coagulation assay PROTHROMBIN TIME Lab STAT Retention of urine Expected: 06/12/2024, Expires: 09/11/2024 Work Phone: Comment on above: Expected: 06/12/2024, Expires: Start: 06-04-2024 End: 06-04-2024 Patient encounter procedure General Surgery Comment on above: Follow Up/Post Op -Pt was in nursing greg e unable to make 02/2024 appt Stoma Issues Start: 05-27-2024 End: 05-27-2024 Patient encounter procedure 05/27/2024 10:30 AM EDT Office Visit Urology [address] [address] Pebbles Barfield MD [address] [place] [address] cysto Urology Comment on above: cysto Start: 05-03-2024 End: 05-03-2024 Nursing evaluation of patient and report 05/03/2024 1:00 PM EDT Nurse Visit Colorectal Surgery [address] [address] Therapy, Stoma [address] [place] [address] close colostomy and ileostomy, Colorectal Surgery Comment on above: close colostomy and ileostomy, Start: 04-18-2024 End: 04-18-2024 Patient encounter procedure 04/18/2024 9:30 AM EDT Office Visit Urology [address] [address] Pebbles Barfield MD [address] [place] [address] [facility] Comment on above: [facility]sto Start: 04-07-2024 Covid-19 Vaccine ( season) Covid-19 Vaccine ( season) [facility] Start: 04-07-2024 Covid-19 Vaccine ( season) Covid-19 Vaccine () [facility] Start: 04-07-2024 Influenza vaccination Influenza Vaccine (#1) [facility] Start: 02-19-2024 End: 02-19-2024 Patient encounter procedure 02/19/2024 9:00 AM EDT Office Visit Urology [address] [address] Kenzie Drew APRN.JUNIOR ANALYST, DNP [address] [place], [place] [phone] Urinary Retention Urology Comment on above: Urinary Retention Start: 02-12-2024 Hemoglobin A1c measurement HbA1C [facility] Start: 02-02-2024 End: 02-02-2024 Admission to same day surgery center 02/02/2024 1:40 PM EDT [facility] General Surgery [address] [place] [address] Forest Kimble MD [address] [place] [address] post op General Surgery Comment on above: post op Start: 01-23-2024 End: 01-23-2024 Patient encounter procedure Vascular Surgery Comment on above: MESENTERIC DUPLEX 1M FOLLOW UP S/P SMA STENT Start: 01-16-2024 End: 01-16-2024 ambulatory [facility] Start: 01-10-2024 End: 01-10-2024 ambulatory General [facility] Gastro[facility] Surgery [facility] Start: 12-18-2023 End: 12-18-2023 ambulatory Vascular Surgery [facility] Start: 12-18-2023 End: 12-18-2023 ambulatory Vascular Surgery [facility] Start: 12-08-2023 End: 12-08-2023 Evaluation and management of inpatient [facility] Start: 12-08-2023 End: 12-08-2023 Laparoscopy surg colostomy/skn lvl cecostomy [facility] Start: 12-08-2023 End: 12-08-2023 REPAIR HERNIA ABDOMINAL INTIAL INCARCERATED/STRANGULATE D 3 TO 10 CM OPEN [facility] Start: 12-08-2023 Evaluation and management of inpatient [facility] Start: 12-02-2023 Complete blood count [facility] Start: 12-02-2023 [facility] Start: 12-02-2023 Ambulation without limitation [facility] Start: 12-02-2023 Assessment of risk of venous thromboembolism [facility] Start: 12-02-2023 Care regimes management [facility] Start: 12-02-2023 Incentive spirometry [facility] Start: 12-02-2023 Insertion of catheter into peripheral vein [facility] Start: 12-02-2023 Notification of physician [facility] Start: 12-02-2023 Oxygen therapy [facility] Start: 12-02-2023 Providing care according to standard [facility] Start: 12-02-2023 Referral to general surgeon [facility] Start: 12-02-2023 Referral to occupational therapist [facility] Start: 12-02-2023 Referral to service [facility] Start: 12-02-2023 [facility] Start: 12-02-2023 Verification routine [facility] Start: 12-02-2023 Admission procedure [facility] Start: 12-01-2023 End: 12-01-2023 ambulatory Telehealth Pre Procedure Preparation Start: 11-29-2023 [facility] Start: 11-17-2023 End: 11-16-2024 Cardiac telemetry [facility] Start: 11-17-2023 End: 11-16-2024 US.doppler Carotid arteries - bilateral [facility] Start: 2023 [facility] Start: 2023 Oxygen therapy [facility] Start: 2023 [facility] Start: 08-30-2023 Urine microalbumin profile DTaP,Tdap,Td Vaccine (2 - Td or Tdap) [facility] Start: 08-08-2023 End: 08-08-2023 Patient encounter procedure 08/08/2023 2:15 PM EST Office Visit General [facility] Gastrointestinal [facility] [address] [place] [phone] Dania Baker MD [address] [place] [phone] General and Gastrointestinal Surgery [facility] Start: 08-07-2023 Advance Directive Discussion Advance Directive Discussion [facility] Start: 07-19-2023 End: 07-19-2023 Patient encounter procedure 07/19/2023 11:30 AM EST Office Visit [facility] Gastrointestinal [facility] [address] [place] [phone] Angeli Zarate DO [address] [place] [phone] General and Gastrointestinal Surgery [facility] Start: 05-26-2023 End: 08-25-2023 CREATININE BLD CREATININE BLD Lab STAT Rectal cancer (HCC) Elevated CEA Expected: 05/26/2023 (Approximate), Expires: 08/25/2023 Work Phone: Comment on above: Expected: 05/26/2023 (Approximate), Expi res: 08/25/2023 Start: 04-07-2023 COVID-19 VACCINE () COVID-19 VACCINE () [facility] Start: 04-07-2023 Influenza vaccination INFLUENZA VACCINE (#1) [facility] Start: 04-07-2023 [facility] Start: 03-19-2023 Blood chemistry [facility] Start: 03-18-2023 Blood chemistry [facility] Start: 03-17-2023 Blood chemistry [facility] Start: 03-16-2023 Blood chemistry [facility] Start: 03-15-2023 Blood chemistry [facility] Start: 03-14-2023 Blood chemistry [facility] Start: 03-13-2023 Blood chemistry [facility] Start: 03-12-2023 Patient discharge [facility] Start: 03-10-2023 Ambulation without limitation [facility] Start: 03-10-2023 Assessment of risk of venous thromboembolism [facility] Start: 03-10-2023 Care regimes management [facility] Start: 03-10-2023 Incentive spirometry [facility] Start: 03-10-2023 Insertion of catheter into peripheral vein [facility] Start: 03-10-2023 Measuring intake and output [facility] Start: 03-10-2023 Notification of physician [facility] Start: 03-10-2023 Oxygen therapy [facility] Start: 03-10-2023 Providing care according to standard [facility] Start: 03-10-2023 Referral to occupational therapist [facility] Start: 03-10-2023 Referral to service [facility] Start: 03-10-2023 [facility] Start: 03-10-2023 Verification routine [facility] Start: 03-10-2023 Admission procedure [facility] Start: 11-22-2022 SERUM CREATININE SERUM CREATININE [facility] Start: 2022 Abdominal aortic aneurysm screening ABDOMINAL AORTIC ANEURYSM HIGH RISK SCREEN [facility] Start: 2022 Advance Directive Discussion Advance Directive Discussion [facility] Start: 2022 Pneumococcal vaccination PNEUMOCOCCAL VACCINE SERIES (1 - PCV) [facility] Start: 05-24-2022 SERUM CREATININE SERUM CREATININE [facility] Start: 04-07-2022 Influenza vaccination [facility] Start: 01-16-2022 COVID-19 VACCINE (3 - Booster for Pfizer series) COVID-19 VACCINE (3 - Booster for Pfizer series) [facility] Start: 11-22-2021 End: 01-22-2022 Carcinoembryonic Ag [Mass/volume] in Serum or Plasma CEA BLD Lab Routine Rectal cancer (HCC) Expected: 11/22/2021, Expires: 01/22/2022 Work Phone: Comment on above: Expected: 11/22/2021, Expires: 2 Start: 11-22-2021 End: 01-22-2022 CBC W Auto Differential panel - Blood CBC + DIFF Lab STAT Rectal cancer (HCC) Expected: 11/22/2021, Expires: 01/22/2022 Work Phone: Comment on above: Expected: 11/22/2021, Expires: 2 Start: 11-22-2021 End: 01-22-2022 Comprehensive metabolic 2000 panel - Serum or Plasma COMP METABOLIC PANEL Lab Routine Rectal cancer (HCC) Expected: 11/22/2021, Expires: 01/22/2022 Work Phone: Comment on above: Expected: 11/22/2021, Expires: 2 Start: 10-13-2021 COVID-19 VACCINE (3 - Booster for Pfizer series) COVID-19 VACCINE (3 - Booster for Pfizer series) [facility] Start: 09-27-2021 Patient referral [facility] Work Phone: Start: 09-07-2021 Colonoscopy flx dx w/collj spec when pfrmd DIAGNOSTIC COLONOSCOPY [facility] Work Phone: Start: 08-20-2020 Hemoglobin A1c/Hemoglobin.total in Blood HBA1C [facility] Start: 05-05-2020 Colonoscopy COLONOSCOPY [facility] Start: 05-02-2020 Colonoscopy Colonoscopy [facility] Start: 11-28-2018 PROSTATE CANCER SCREENING DISCUSSION PROSTATE CANCER SCREENING DISCUSSION [facility] Start: 11-28-2018 Prostate specific antigen measurement Prostate Cancer Screening Discussion [facility] Start: 2017 Hepatitis B Vaccine (1 of 3 - Risk 3-dose series) Hepatitis B Vaccine (1 of 3 - Risk 3-dose series) [facility] Start: 2017 RSV Vaccine (1 - 1-dose 60+ series) RSV Vaccine (1 - 1-dose 60+ series) [facility] Start: 2017 RSV Vaccine (1 - Risk 60-74 years 1-dose series) RSV Vaccine (1 - Risk 60-74 years 1-dose series) [facility] Start: 01-03-2016 Hepatitis B surface antibody level LDL CHOLESTEROL [facility] Start: 11-12-2007 Prostate specific antigen measurement [facility] Start: 11-12-2007 SHINGRIX VACCINE (1 of 2) SHINGRIX VACCINE (1 of 2) [facility] Start: 11-12-2007 Zoster vaccine hzv live for subcutaneous use ZOSTER (SHINGLES) VACCINE (1 of 2) [facility] Start: 11-12-2007 [facility] Start: 2002 COLOGUARD (FIT-DNA) COLOGUARD (FIT-DNA) [facility] Start: [address] COLONOGRAPHY [facility] Start: 2002 FECAL OCCULT BLOOD FECAL OCCULT BLOOD [facility] Start: 2002 Screening for malignant neoplasm of colon [facility] Start: 1997 Lipid panel LIPID SCREENING [facility] Start: 1976 Third diphtheria, tetanus and acellular pertussis (DTaP) vaccination [facility] Start: 1976 Urine microalbumin profile [facility] Start: 11-12-1975 ANNUAL PCP TEAM CHRONIC DISEASE VISIT ANNUAL PCP TEAM CHRONIC DISEASE VISIT [facility] Start: 11-12-1975 BP CONTROLLED (<130/80) BP CONTROLLED (<130/80) [facility] Start: 11-12-1975 HEPATITIS C SCREENING HEPATITIS C SCREENING [facility] Start: 11-12-1975 Hepatitis C screening Hepatitis C Screening [facility] Start: 11-12-1975 HIV SCREENING HIV SCREENING [facility] Start: 1973 ONE PNEUMOVAX PRIOR TO AGE 65 ONE PNEUMOVAX PRIOR TO AGE [address] [facility] Start: 11-12-1967 3 comp foot exam completed DIABETIC FOOT EXAM [facility] Start: 11-12-1967 Glaucoma screening Dilated Retinal Exam [facility] Start: 11-12-1967 Hepatitis B screening URINE ALBUMIN:CREATININE RATIO [facility] Start: 11-12-1967 Hepatitis C antibody, confirmatory test DILATED RETINAL EXAM [facility] Start: 11-12-1963 PNEUMOCOCCAL (1 - PCV) PNEUMOCOCCAL (1 - PCV) [facility] Start: 11-12-1963 Pneumococcal Vaccine: 65+ (1 - PCV) Pneumococcal Vaccine: 65+ (1 - PCV) [facility] Start: 1957 [facility] Start: 1957 Tetanus vaccination [facility] Alanine aminotransfe rase [Enzymatic activity/volume] in Serum or Plasma [facility] Albumin [Mass/volume ] in Serum or Plasma [facility] Alkaline phosphatase [Enzymatic activity/volume] in Serum or Plasma [facility] Anion gap in Serum o r Plasma [facility] Anion gap measurement [facility] Anion gap measurement [facility] Anion gap measurement [facility] Anion gap measurement [facility] Anion gap measurement [facility] Anion gap measurement [facility] Anion gap measurement [facility] Anion gap measurement [facility] Aspartate aminotransferase [Enzymatic activity/volume] in Serum or Plasma [facility] Bacteria identified in Urine by Culture URINE CULTURE Microbiology Routine Gross hematuria 04/10/2024 10:39 AM EDT Work Phone: Basic metabolic 2008 panel with ionized calcium - Serum or Plasma [facility] Bilirubin, total measurement [facility] BUN/Creatinine ratio [facility] BUN/Creatinine ratio [facility] BUN/Creatinine ratio [facility] BUN/Creatinine ratio [facility] BUN/Creatinine ratio [facility] BUN/Creatinine ratio [facility] BUN/Creatinine ratio [facility] BUN/Creatinine ratio [facility] BUN/Creatinine ratio [facility] Calcium [Mass/volume ] in Serum or Plasma [facility] Calcium [Mass/volume ] in Serum or Plasma [facility] Calcium [Mass/volume ] in Serum or Plasma [facility] Calcium [Mass/volume ] in Serum or Plasma [facility] Calcium [Mass/volume ] in Serum or Plasma [facility] Calcium [Mass/volume ] in Serum or Plasma [facility] Calcium [Mass/volume ] in Serum or Plasma [facility] Calcium [Mass/volume ] in Serum or Plasma [facility] Calcium [Mass/volume ] in Serum or Plasma [facility] Carbon dioxide, tota l [Moles/volume] in Central venous blood [facility] Carbon dioxide, tota l [Moles/volume] in Serum or Plasma [facility] Carbon dioxide, tota l [Moles/volume] in Serum or Plasma [facility] Carbon dioxide, tota l [Moles/volume] in Serum or Plasma [facility] Carbon dioxide, tota l [Moles/volume] in Serum or Plasma [facility] Carbon dioxide, tota l [Moles/volume] in Serum or Plasma [facility] Carbon dioxide, tota l [Moles/volume] in Serum or Plasma [facility] Carbon dioxide, tota l [Moles/volume] in Serum or Plasma [facility] Carbon dioxide, tota l [Moles/volume] in Serum or Plasma [facility] CBC W Auto Different ial panel - Blood [facility] Chloride [Moles/volu me] in Serum or Plasma [facility] Chloride [Moles/volu me] in Serum or Plasma [facility] Chloride [Moles/volu me] in Serum or Plasma [facility] Chloride [Moles/volu me] in Serum or Plasma [facility] Chloride [Moles/volu me] in Serum or Plasma [facility] Chloride [Moles/volu me] in Serum or Plasma [facility] Chloride [Moles/volu me] in Serum or Plasma [facility] Chloride [Moles/volu me] in Serum or Plasma [facility] Creatinine [Mass/vol ume] in Serum or Plasma [facility] Creatinine [Moles/volume] in Serum or Plasma [facility] Creatinine [Moles/volume] in Serum or Plasma [facility] Creatinine [Moles/volume] in Serum or Plasma [facility] Creatinine [Moles/volume] in Serum or Plasma [facility] Creatinine [Moles/volume] in Serum or Plasma [facility] Creatinine [Moles/volume] in Serum or Plasma [facility] Creatinine [Moles/volume] in Serum or Plasma [facility] Creatinine [Moles/volume] in Serum or Plasma [facility] End: 06-24-2024 Ct abdomen & pelvis w/contrast material CT ABD/PEL W IVCON Radiology Routine Rectal cancer (HCC) Elevated CEA 1 Occurrences starting 05/26/2023 until 06/24/2024 Work Phone: Comment on above: 1 Occurrences starting 05/26/2023 until 06/24/2024 Ct abdomen & pelvis w/contrast material CT ABD/PEL W IVCON Radiology Routine Rectal cancer (HCC) Elevated CEA 06/15/2023 3:52 PM EST Work Phone: End: 06-24-2024 CT CHEST W IVCON CT CHEST W IVCON Radiology Routine Rectal cancer (HCC) Elevated CEA 1 Occurrences starting 05/26/2023 until 06/24/2024 Work Phone: Comment on above: 1 Occurrences starting 05/26/2023 until 06/24/2024 CT CHEST W IVCON CT CHEST W IVCO N Radiology Routine Rectal cancer (HCC) Elevated CEA 06/15/2023 3:52 PM EST [facility] [employer] Work Phone: [facility] Procedures Routine Urinary retention Ordered: 03/11/2024 Work Phone: Comment on above: Ordered: 03/11/2024 Erythrocyte mean corpuscular volume determination [facility] Glucose [Mass/volume ] in Serum or Plasma [facility] Glucose [Mass/volume ] in Serum or Plasma [facility] Glucose [Mass/volume ] in Serum or Plasma [facility] Glucose [Mass/volume ] in Serum or Plasma [facility] Glucose [Mass/volume ] in Serum or Plasma [facility] Glucose [Mass/volume ] in Serum or Plasma [facility] Glucose [Mass/volume ] in Serum or Plasma [facility] Glucose [Mass/volume ] in Serum or Plasma [facility] Glucose [Mass/volume ] in Serum or Plasma [facility] Hematocrit [Volume Fraction] of Blood [facility] Hematocrit [Volume Fraction] of Blood [facility] Hematocrit [Volume Fraction] of Blood [facility] Hematocrit [Volume Fraction] of Blood [facility] Hematocrit [Volume Fraction] of Blood [facility] Hematocrit [Volume Fraction] of Blood [facility] Hematocrit [Volume Fraction] of Blood [facility] Hematocrit [Volume Fraction] of Blood [facility] Hemoglobin [Mass/vol ume] in Blood [facility] Hemoglobin [Mass/vol ume] in Blood [facility] Hemoglobin [Mass/vol ume] in Blood [facility] Hemoglobin [Mass/vol ume] in Blood [facility] Hemoglobin [Mass/vol ume] in Blood [facility] Hemoglobin [Mass/vol ume] in Blood [facility] Hemoglobin [Mass/vol ume] in Blood [facility] Hemoglobin [Mass/vol ume] in Blood [facility] Laparoscopy surg colostomy/skn lvl cecostomy COLOSTOMY LAPAROSCOPIC Peristomal hernia [facility] Leukocytes [#/volume ] in Blood [facility] Leukocytes [#/volume ] in Blood [facility] Leukocytes [#/volume ] in Blood [facility] Leukocytes [#/volume ] in Blood [facility] Leukocytes [#/volume ] in Blood [facility] Leukocytes [#/volume ] in Blood [facility] Leukocytes [#/volume ] in Blood [facility] Leukocytes [#/volume ] in Blood [facility] Lipid 1996 panel - S khloe or Plasma [facility] Mean corpuscular hemoglobin concentration determination [facility] Mean corpuscular hemoglobin concentration determination [facility] Mean corpuscular hemoglobin concentration determination [facility] Mean corpuscular hemoglobin concentration determination [facility] Mean corpuscular hemoglobin concentration determination [facility] Mean corpuscular hemoglobin concentration determination [facility] Mean corpuscular hemoglobin concentration determination [facility] Mean corpuscular hemoglobin concentration determination [facility] Mean corpuscular hemoglobin determination [facility] Mean corpuscular hemoglobin determination [facility] Mean corpuscular hemoglobin determination [facility] Mean corpuscular hemoglobin determination [facility] Mean corpuscular hemoglobin determination [facility] Mean corpuscular hemoglobin determination [facility] Mean corpuscular hemoglobin determination [facility] Mean corpuscular hemoglobin determination [facility] Measurement of renal function [facility] Measurement of renal function [facility] Measurement of renal function [facility] Measurement of renal function [facility] Measurement of renal function [facility] Measurement of renal function [facility] Measurement of renal function [facility] Measurement of renal function [facility] Measurement of renal function [facility] Microscopic urinalysis [facility] End: 12-23-2022 MRI LIVER (EOVIST) WO/W IVCON MRI LIVER (EOVIST) WO/W IVCON Radiology Routine Rectal cancer (HCC) Abnormal CT of the abdomen 1 Occurrences starting 11/23/2021 until 12/23/2022 Work Phone: Comment on above: 1 Occurrences starting 11/23/2021 until 12/23/2022 MRI LIVER (EOVIST) W O/W IVCON MRI LIVER (EOVIST) WO/W IVCON Radiology Routine Rectal cancer (HCC) Abnormal CT of the abdomen 12/09/2021 3:26 PM EDT Work Phone: End: 01-12-2023 MRI LIVER (EOVIST) WO/W IVCON MRI LIVER (EOVIST) WO/W IVCON Radiology Routine Rectal cancer (HCC) Abnormal MRI, liver 1 Occurrences starting 12/13/2021 until 01/12/2023 Work Phone: Comment on above: 1 Occurrences starting 12/13/2021 until 01/12/2023 Neutrophil count [facility] Neutrophil count [facility] Neutrophil count [facility] Neutrophil count [facility] Neutrophil count [facility] Neutrophil count [facility] Neutrophil count [facility] Neutrophil percent differential count [facility] Neutrophil percent differential count [facility] Neutrophil percent differential count [facility] Neutrophil percent differential count [facility] Neutrophil percent differential count [facility] Neutrophil percent differential count [facility] Neutrophil percent differential count [facility] NM Heart Views W str ess and W radionuclide IV [facility] NM Heart Views W str ess and W radionuclide IV [facility] NM Heart Views W str ess and W radionuclide IV [facility] Nucleic acid assay [facility] Organism count, microscopic method [facility] Ova OR parasites identification [facility] Patient Education [facility] Work Phone: Patient referral [facility] Work Phone: Platelets [#/volume] in Blood [facility] Platelets [#/volume] in Blood [facility] Platelets [#/volume] in Blood [facility] Platelets [#/volume] in Blood [facility] Platelets [#/volume] in Blood [facility] Platelets [#/volume] in Blood [facility] Platelets [#/volume] in Blood [facility] Platelets [#/volume] in Blood [facility] Potassium [Moles/vol ume] in Serum or Plasma [facility] Potassium [Moles/vol ume] in Serum or Plasma [facility] Potassium [Moles/vol ume] in Serum or Plasma [facility] Potassium [Moles/vol ume] in Serum or Plasma [facility] Potassium [Moles/vol ume] in Serum or Plasma [facility] Potassium [Moles/vol ume] in Serum or Plasma [facility] Potassium [Moles/vol ume] in Serum or Plasma [facility] Potassium [Moles/vol ume] in Serum or Plasma [facility] Potassium measurement [facility] End: 11-16-2023 PV FLUOROSCOPY IN ROSS OR [facility] Red blood cell count [facility] Red blood cell count [facility] Red blood cell count [facility] Red blood cell count [facility] Red blood cell count [facility] Red blood cell count [facility] Red blood cell count [facility] Red blood cell count [facility] Red cell distributio n width determination [facility] Red cell distributio n width determination [facility] Red cell distributio n width determination [facility] Red cell distributio n width determination [facility] Red cell distributio n width determination [facility] Red cell distributio n width determination [facility] Red cell distributio n width determination [facility] Red cell distributio n width determination [facility] REPAIR HERNIA ABDOMI NAL INTIAL INCARCERATED/STRANGULATE D 3 TO 10 CM OPEN [facility] OR RF Urinary bladder V iews W contrast via suprapubic tube IR SUPRAPUBIC TUBE PLACEMENT Radiology Routine Retention of urine Ordered: 05/31/2024 Work Phone: Comment on above: Ordered: 05/31/2024 Serum chloride measurement [facility] Sodium [Moles/volume ] in Serum or Plasma [facility] Sodium [Moles/volume ] in Serum or Plasma [facility] Sodium [Moles/volume ] in Serum or Plasma [facility] Sodium [Moles/volume ] in Serum or Plasma [facility] Sodium [Moles/volume ] in Serum or Plasma [facility] Sodium [Moles/volume ] in Serum or Plasma [facility] Sodium [Moles/volume ] in Serum or Plasma [facility] Sodium [Moles/volume ] in Serum or Plasma [facility] Sodium measurement [facility] SUPRAPUBIC TUBE CHANGE SUPRAPUBI C TUBE CHANGE Procedures Routine Chronic suprapubic catheter (HCC) Ordered: 09/09/2024 Work Phone: Comment on above: Ordered: 09/09/2024 Total protein measurement [facility] Urea nitrogen [Mass/volume] in Serum or Plasma [facility] Urea nitrogen [Mass/volume] in Serum or Plasma [facility] Urea nitrogen [Mass/volume] in Serum or Plasma [facility] Urea nitrogen [Mass/volume] in Serum or Plasma [facility] Urea nitrogen [Mass/volume] in Serum or Plasma [facility] Urea nitrogen [Mass/volume] in Serum or Plasma [facility] Urea nitrogen [Mass/volume] in Serum or Plasma [facility] Urea nitrogen [Mass/volume] in Serum or Plasma [facility] Urea nitrogen [Mass/volume] in Serum or Plasma [facility] Urine culture [facility] Urine microscopy: epithelial cells [facility] Urine microscopy: re d cells [facility] URODYNAMICS URODYNAMICS Proc edures Routine Urinary retention Ordered: 03/12/[address] [facility] Comment on above: Ordered: 03/12/2024 [employer] limited [facility] White blood cell count [facility] Immunizations Immunization Date Immunization Notes Care Provider Soren monge 06-13-2023 influenza virus vaccine, unspecified formulation Kenzie Drew APRN.JUNIOR ANALYST, DNP Work Phone: [facility] 09-28-2021 influenza, injectabl e, quadrivalent, preservative free Dr. Kendy Modi Work Phone: [facility] 09-28-2021 influenza, seasonal, injectable Dr. Kendy Modi Work Phone: [facility] 09-28-2021 influenza virus vaccine, unspecified formulation Angeli Zarate DO Work Phone: [facility] 08-30-2013 tetanus toxoid, reduced diphtheria toxoid, and acellular pertussis vaccine, adsorbed Dr. Kendy Modi Work Phone: [facility] Payers Date Payer Category Payer Self-pay [id number] 2024 Private Health Insurance [facility] [id number] 2023 Unknown xx 2020 [employer] Blue [employer] BLUE CARD PPO OOS [id number] 2020 Unknown [employer] PPO [id number] 2020-Present [phone] [address] [place] [id number] PPO [id number]. [id number] 2020 Unknown [id number] 1.13.159. 2.7.3.659832.315 2017 Medicare [id number]. 1.13.159. [id number] 2017 Medicare [id number] 2012 Unknown [id number] 1957 Unknown [id number] 2.0.1.049256.3.579. 2.594 1957 Unknown [id number] 2.0.1.192851.3.579. 2.594 1957 Unknown [id number] .0.1.472823.3.579. 2.594 1957 Unknown [id number] .0.1.977581.3.579. 2.594 1957 Unknown [id number] .0.1.403048.3.579. 2.594 1957 Unknown [id number] .0.1.228253.3.579. 2.594 Unknown [id number] .0.1.986867.3.579. 2.627 Unknown [employer] [place] [id number] Unknown [id number] 2.840.1.859674.3.579. 2.462 Unknown [id number] 2.0.1.679312.3.579. 2.462 Unknown [id number] 2.840.1.390757.3.579. 2.462 Unknown [id number] 2.16.840.1.977687.3.579. 2.462 Unknown [id number] 2.16.840.1.507363.3.579. 2.462 Unknown [id number] 2.16.840.1.610362.3.579. 2.462 Unknown [id number] 2.16.840.1.553039.3.579. 2.462 Unknown [id number] 2.16.840.1.806843.3.579. 2.462 Unknown [id number] 2.16.840.1.377720.3.579. 2.462 Unknown [id number] 2.16.840.1.945933.3.579. 2.462 Unknown [id number] 2.16.840.1.755748.3.579. 2.462 Unknown [id number] 2.16.840.1.666601.3.579. 2.462 Unknown [id number] 2.16.840.1.229342.3.579. 2.462 Unknown [id number] 2.16.840.1.691628.3.579. 2.462 Unknown [id number] 2.16.840.1.868980.3.579. 2.462 Unknown [id number] 2.16.840.1.771003.3.579. 2.462 Unknown [id number] 2.16.840.1.224651.3.579. 2.462 Unknown [id number] 2.16.840.1.395558.3.579. 2.462 Unknown [id number] 2.16.840.1.391261.3.579. 2.462 Unknown [id number] 2.16.840.1.359083.3.579. 2.462 Unknown [id number] 2.16.840.1.629253.3.579. 2.462 Unknown [id number] 2.16.840.1.796675.3.579. 2.462 Unknown [id number] 2.16.840.1.841940.3.579. 2.462 Unknown [id number] 2.16.840.1.035254.3.579. 2.462 Unknown [id number] 2.16.840.1.131382.3.579. 2.462 Unknown [id number] 2.16.840.1.932638.3.579. 2.462 Unknown [id number] 2.16.840.1.749317.3.579. 2.462 Unknown [id number] 2.16.840.1.377344.3.579. 2.462 Unknown [id number] 2.16.840.1.493789.3.579. 2.462 Unknown [id number] 2.16.840.1.270894.3.579. 2.462 Unknown [id number] 2.16.840.1.095497.3.579. 2.462 Unknown [id number] 2.16.840.1.844644.3.579. 2.462 Unknown [id number] 2.16.840.1.762590.3.579. 2.462 Unknown [id number] 2.16.840.1.862955.3.579. 2.462 Unknown [id number] 2.16.840.1.997314.3.579. 2.462 Unknown [id number] 2.16.840.1.597660.3.579. 2.462 Unknown [id number] 2.16.840.1.747857.3.579. 2.462 Unknown [id number] 2.16.840.1.066776.3.579. 2.462 Unknown [id number] 2.16.840.1.546131.3.579. 2.462 Unknown [id number] 2.16.840.1.935261.3.579. 2.462 Unknown [id number] 2.16.840.1.482423.3.579. 2.462 Unknown [id number] 2.16.840.1.602930.3.579. 2.462 Unknown [id number] 2.16.840.1.065883.3.579. 2.462 Unknown [id number] 2.16.840.1.738436.3.579. 2.462 Unknown [id number] 2.16.840.1.491923.3.579. 2.462 Unknown [id number] 2.16.840.1.151007.3.579. 2.462 Unknown [id number] 2.16.840.1.591926.3.579. 2.462 Unknown [id number] 2.16.840.1.160445.3.579. 2.462 Unknown [id number] 2.16.840.1.526057.3.579. 2.462 Unknown [id number] 2.16.840.1.853675.3.579. 2.462 Unknown [id number] 2.16.840.1.944990.3.579. 2.462 Unknown [id number] 2.16840.1.825081.3.579. 2.462 Unknown [id number] 2.16.840.1.997210.3.579. 2.462 Social History Date Type Detail Facility Start: 10-15-2021 End: 12-01-2023 Tobacco smoking status [facility] Unknown if ever smoked [facility] Start: 12-17-2020 Rare [facility] Start: 12-17-2020 None [facility] Start: 10-29-2019 Spouse/ Signif icant Other [facility] Start: 08-14-2020 Non-smoker [facility] Start: 1955 Sex Assigned At Male C [facility] Start: 01-22-2013 End: 04-30-2025 Tobacco smoking status [facility] Never smoked tobacco [facility] Start: 01-22-2013 End: 03-11-2024 Tobacco use and exposure Smokeless tobacco non-user [facility] Start: 06-30-2021 End: 12-31-2024 Alcohol intake Current non-drinker of alcohol (finding) [facility] Start: 05-27-2020 History SDOH Financial [address] [facility] Start: 05-27-2020 History SDOH Food Worry [address] [facility] Start: 05-27-2020 History SDOH Transpo rt Med [address] [facility] Start: 03-05-2022 End: 05-11-2022 Exposure to SARS-CoV-2 (event) Not sure [facility] Start: 05-24-2023 End: 11-20-2023 Alcohol intake Ex-drinker (finding) [facility] Start: 05-24-2023 End: 06-15-2023 History of Social function [facility] Work Phone: Start: 05-24-2023 End: 06-15-2023 Tobacco use panel [facility] Work Phone: Start: 05-24-2023 Alcohol Comment Wine rarely [facility] Start: 1955 Sex Assigned At Not on file O [facility] How hard is it for y ou to pay for the very basics like food, housing, medical care, and heating Not hard at all [facility] Work Phone: (I/We) worried keenan er (my/our) food would run out before (I/we) got money to buy more. Never true [facility] Work Phone: Start: 03-31-2020 Gender identity Identifies as male gender (finding) [facility] Start: 03-31-2020 Sexual orientation Heterosexual (kerri rodrigues) [facility] Has the [employer], oil, or water [employer] threatened to shut off services in your home in past 12Mo No [facility] Start: 10-18-2024 End: 11-28-2024 Sex Male (finding) [facility] NEGATED: Highlighted rowStart: NINF History of tobacco use Passive smoker [facility] Medical Equipment Procedure Code Equipment Code [...] 30mm Metal 27mm 135cm Biliary Otw - [id number] Start: 12-18-2023 Stent Express Ld Tandem Architecture 7mm 20mm Stainless Steel 17mm 135cm - [id number] Start: 12-18-2023 Goals Date Patient Goal Desired Activity /State Functional Status Date Assessment Result Facility 11-28-2024 Functional status Chair [facility] Work Phone: 11-25-2024 Functional status Ambulates [facility] Work Phone: 10-18-2024 Functional status Ambulates;Omi r;Bathroom Privilege [facility] Work Phone: 08-28-2024 Functional status Bedrest [facility] Work Phone: 03-12-2023 Functional status Activity Abili ty Standby Assist [facility] Work Phone: 03-11-2023 Functional status Patient Activi ty Dangle Feet [facility] Work Phone: 09-29-2021 Functional status Ambulates [facility] Work Phone: 05-28-2020 Are you deaf, or do you have serious difficulty hearing No 05/28/2020 1:41 PM Addis Moreno RN No [facility] 05-28-2020 Are you blind, or do you have serious difficulty seeing, even when wearing glasses No 05/28/2020 1:41 PM Addis Moreno, RASHI No [facility] 05-28-2020 Do you have serious difficulty walking or climbing stairs No 05/28/2020 1:41 PM Addis Moreno, RASHI No [facility] 05-28-2020 Do you have difficul ty dressing or bathing No 05/28/2020 1:41 PM Addis Moreno RN No [facility] 05-28-2020 Because of a physica l, mental, or emotional condition, do you have difficulty doing errands alone such as visiting a physician's office or shopping No 05/28/2020 1:41 PM Addis Moreno RN No [facility] Mental Status Date Assessment Result Facility 12-02-2024 Cognitive function Level Of Cons ciousness Awake;Alert;Appropriate;Michael Santana [facility] Work Phone: 11-28-2024 Cognitive function Voice/Name [facility] Work Phone: 11-25-2024 Cognitive function Appropriate;Cooperjenise rosas [facility] Work Phone: 10-18-2024 Cognitive function Voice/Name [facility] Work Phone: 08-28-2024 Cognitive function Voice/Name [facility] Work Phone: 08-27-2024 Cognitive function Appropriate;Cooperativ e [facility] Work Phone: 2023 Cognitive function Awake;Alert;A ppropriate;Michael roberts [facility] Work Phone: 03-12-2023 Cognitive function Voice/Name [facility] Work Phone: 03-10-2023 Cognitive function Voice/Name [facility] Work Phone: 09-29-2021 Cognitive function Voice/Name [facility] Work Phone: 09-23-2021 Cognitive function Level Of Cons ciousness Awake;Alert;Appropriate;Michael roberts [facility] Work Phone: 09-07-2021 Cognitive function Voice/Name [facility] Work Phone: 05-28-2020 Because of a physica l, mental, or emotional condition, do you have serious difficulty concentrating, remembering, or making decisions No 05/28/2020 1:41 PM CYNTHIAT Addis Palma RN No [facility] Clinical Notes 05-30-2008 to 04-29-2025 Note Date & Type Note Facility 04-29-2025 History and physi maria guadalupe note Note Date/Time April 29, 2025 2:14pm [facility] Medical Records Department [address] [place] [address] History & Physical Exam 04/29/25 1403 MR#: [id number] Acct: [id number] Name: YONY VEGA Rep #:[id number] : 1955 69 From: Amy PARK PA PCP: Dr. Dre De Los Santos MD Status:PRE SD C Location: [facility] History and Physical Date of Admission: 04/30/25 Mr. Vega is a very pleasant 69-year-old gentleman who presents to the office today for a cardiovascular follow up visit. He has a history of hyperlipidemia, hypertension, coronary artery disease status post 5 vessel bypass surgery after markedly abnormal stress test on 05/29/2008 requiring had urgent transfer to [facility] where a left heart catheterization performed by Dr. Hidalgo demonstrated severe multivessel coronary disease including left main disease, LVEF at that time demonstrated 45% with severe inferobasal akinesis, and subsequent successful multivessel bypass surgery ?5 with a sequential ZUNIGA to the LAD/diagonal, a free KIMBERLYN to the PDA, and SVG to the ramus, and SVG to the obtuse marginal branch. He underwent catheterization which demonstrated a critical lesion in the saphenous vein graft to the circumflex, as well as in thenative PDA and PL branch which can only be reached retrograde via the Free KIMBERLYN to the RCA. He underwent successful drug-eluting stent to the SVG to the LCX with a 2.25 mm Promus stent. There was consideration to proceed with retrogradeapproach via the free KIMBERLYN and were awaiting a special catheter to facilitate this, however the procedure was deemed too high risk by the [employer] director [facility], so no additional angioplasty was performed. The patient returned soon after that with recurrent anginal symptoms and was emergently transported to [facility] where he underwent urgent left heart catheterization. At that time he was found to have a patent stent in his SVG, and no additional attempts were made to correct his nenana PDA lesions via the free KIMBERLYN. The patient successfully completed 15 sessions of ECP therapy and apparently his angina had completely resolved. The patient has undergone bilateral lower extremity balloon angioplasty by Dr. Biswas; one in June 2015for the right side and then August 2015 on the left side. Since that time his claudication symptoms have improved. [facility]. He is noted to have elevated troponin and an ejection fraction showed an LV function of 35-40%. Initially it was recommend to undergo a heart catheterization. On account of instability during hospital visit, it was then decide to undergo a stress test. Ultimately, he was discharged on medical therapy and recommended to discuss CAD evaluation on an outpatient basis. Patient presented to the emergency room on 12/03/2024 for abnormal labs. His potassium was elevated at 6.4. His potassium level was checked during ER visit,which was slightly elevated at 5.9. He was given Kayexalate, and discharged home to follow-up with his lab values on an outpatient basis. Patient underwent a pharmacologic nuclear stress test in April 2025. This demonstrated mild to moderate size reversible ischemia in the lateral wall. Because of this patient is scheduled to undergo a diagnostic heart catheterization. Medical History Uremia Nausea & vomiting MADELEINE (acute kidney injury) Pancreatitis Ileostomy present Colostomy in place Orthostatic hypotension [...] ALEJANDRO (obstructive sleep apnea) Dyslipidemia HTN (hypertension) Surgical History History of bilateral cataract extraction History of left heart catheterization (LHC) (~01/22/15) History of right and left heart catheterization (LHC) (~12/25/14) History of eye surgery PTCA Left Anterior Tibial and Paroneal Artery History of coronary artery stent placement (01/02/15) H/O coronary artery bypass surgery (05/30/08) History of right-sided carotid endarterectomy Excision Max.Zygoma Face Tumor History of tonsillectomy History of herniorrhaphy Family History Father CAD (coronary artery disease) Hypertension Cancer leukemia Diabetes Heart disease High cholesterol Mother CVA (cerebral vascular accident) Diabetes Breast cancer Brother Diabetes Social History household members: spouse Smoking Status: Never smoker alcohol intake: never substance use type: does not use caffeine: Yes what type of physical activity do you participate in: none ROS Const Const: Negative for fatigue, weakness, headache(s) or frequent falls Eyes Eyes: Negative for blurry vision ENT ENT: Negative for headache(s), dizziness or Nosebleed/epistaxis Cardio Chest Pain: No Palpitations: No Edema: None Muscle aches with walking: None Resp Respiratory: Negative for SOB with activity, SOB at rest or SOB orthopnea\SOB lying down GI GI: Negative nausea, vomiting, heartburn, bright, red blood in stools or black,tarry stools : Negative for hematuria Neuro Neuro: Positive for lightheadedness; Negative for dizziness, near syncope, syncope, frequent falls, headache(s), weakness or blurry vision Endo Endo: Negative for fatigue Cardiology Exam Const Appearance: cooperative, comfortable and no acute distress Nutritional Appearance: average body habitus and well nourished Orientation: alert and oriented x3 Head Head: normal to inspection Ears: hearing grossly normal bilaterally Nose: external nose normal Face and Sinus: face symmetric Eyes General: appearance normal, both eyes and all related structures Eyelids: eyelids normal Conjunctivae: conjunctivae normal Pupils: PERRL and pupil size EOM: EOM intact bilaterally Neck Neck: no JVD Carotids: Negative bruit Chest Chest inspection: normal inspection of the chest and normal respiratory effort Auscultation: Bilateral: Clear to Auscultation Cardio Palpation: normal PMI Rate: regular rate Rhythm: regular rhythm Heart sounds: S1 normal and S2 normal GI GI: normal to inspection, soft and other (has a mackenzie catheter) Neuro General: patient alert, patient awake and patient oriented x3 Skin Skin: no rashes or lesions noted Extremities Pulses: Normal: Right Posterior Tibial Pulse, Left Posterior Tibial Pulse, RightRadial Pulse and Left Radial Pulse Lower Extremity Edema: None: Bilateral Psych Psychological: normal affect Assessment & Plan Assessment/Plan (1) Abnormal stress test: (2) H/O coronary artery bypass surgery: (3) HTN (hypertension): QUALIFIERS: Hypertension type: essential hypertension Qualified Code(s): I10 - Essential (primary) hypertension (4) History of coronary artery stent placement: (5) Dyslipidemia: PLAN: Plan Patient will follow-up after diagnostic heart catheterization. 04/29/25 1414 <Electronically signed by Amy PARK> Cosigner Signature (if applicable): CC: Dr. Dre De Los Santos MD; VIVIAN Davidson~ Signed [facility] Work Phone: 1(700) 149-832109-23-2025 History and physical note [facility] Medical Records Department [address] [place] [address] History & Physical Exam 04/29/25 1403 MR#: [id number] Acct: [id number] Name: YONY VEGA Rep #:[id number] : 1955 69 From: Amy PARK PCP: Dr. Dre De Los Santos MD Status:PRE SD C Location: [facility] History and Physical Date of Admission: 04/30/25 Mr. Vega is a very pleasant 69-year-old gentleman who presents to the office today for a cardiovascular follow up visit. He has a history of hyperlipidemia, hypertension, coronary artery disease status post 5 vessel bypass surgery after markedly abnormal stress test on 05/29/2008 requiring had urgent transfer to [facility] where a left heart catheterization performed by Dr. Hidalgo demonstrated severe multivessel coronary disease including left main disease, LVEF at that time demonstrated 45% with severe inferobasal akinesis, and subsequent successful multivessel bypass surgery ?5 with a sequential ZUNIGA to the LAD/diagonal, a free KIMBERLYN to the PDA, and SVG to the ramus, and SVG tothe obtuse marginal branch. He underwent catheterization which demonstrated a critical lesion in the saphenous vein graft to the circumflex, as well as in thenative PDA and PL branch which can only be reached retrograde via the Free KIMBERLYN to the RCA. He underwent successful drug-eluting stent to theSVG to the LCX with a 2.25 mm Promus stent. There was consideration to proceed with retrogradeapproach via the free KIMBERLYN and were awaiting a special catheter to facilitate this, however the procedurewas deemed too high risk by the [employer] director [facility], so no additional angioplasty was performed. The patient returned soon after that with recurrent anginal symptoms and was emergently transported to [facility] where he underwent urgent left heart catheterization.At that time he was found to have a patent stent in his SVG, and no additional attempts were made to correct his nenana PDA lesions via the free KIMBERLYN. The patient successfully completed 15 sessions of ECP therapy and apparently his angina had completely resolved. The patient has undergone bilaterallower extremity balloon angioplasty by Dr. Biswas; one in June 2015for the right side and then August 2015 on the left side. Since that time his claudication symptoms have improved. [facility]. He is noted to have elevated troponin and an ejection fr action showed an LV function of 35-40%. Initially it was recommend to undergo a heart catheterization. On account of instability during hospital visit, it was then decide to undergo a stress test. Ultimately, he was discharged on medical therapy and recommended to discuss CAD evaluation on an outpatient basis. Patient presented to the emergency room on 12/03/2024 for abnormal labs. His potassium was elevated at 6.4. His potassium level was checked during ER visit,which was slightly elevated at 5.9. He was given Kayexalate, and discharged home to follow-up with his lab values on an outpatient basis. Patient underwent a pharmacologic nuclear stress test in April 2025. This demonstrated mild to moderate size reversible ischemia in the lateral wall. Because of this patient is scheduled to undergo a diagnostic heart catheterization. Medical History Uremia Nausea & vomiting MADELEINE (acute kidney injury) Pancreatitis Ileostomy present Colostomy in place Orthostatic hypotension [...] ALEJANDRO (obstructive sleep apnea) Dyslipidemia HTN (hypertension) Surgical History History of bilateral cataract extraction History of left heart catheterization (LHC) (~01/22/15) History of right and left heart catheterization (LHC) (~12/25/14) History of eye surgery PTCA Left Anterior Tibial and Paroneal Artery History of coronary artery stent placement (01/02/15) H/O coronary artery bypass surgery (05/30/08) History of right-sided carotid endarterectomy Excision Max.Zygoma Face Tumor History of tonsillectomy History of herniorrhaphy Family History Father CAD (coronary artery disease) Hypertension Cancer leukemia Diabetes Heart disease High cholesterol Mother CVA (cerebral vascular accident) Diabetes Breast cancer Brother Diabetes Social History household members: spouse Smoking Status: Never smoker alcohol intake: never substance use type: does not use caffeine: Yes what type of physical activity do you participate in: none ROS Const Const: Negative for fatigue, weakness, headache(s) or frequent falls Eyes Eyes: Negative for blurry vision ENT ENT: Negative for headache(s), dizziness or Nosebleed/epistaxis Cardio Chest Pain: No Palpitations: No Edema: None Muscle aches with walking: None Resp Respiratory: Negative for SOB with activity, SOB at rest or SOB orthopnea\SOB lying down GI GI: Negative nausea, vomiting, heartburn, bright, red blood in stools or black,tarry stools : Negative for hematuria Neuro Neuro: Positive for lightheadedness; Negative for dizziness, near syncope, syncope, frequent falls, headache(s), weakness or blurry vision Endo Endo: Negative for fatigue Cardiology Exam Const Appearance: cooperative, comfortable and no acute distress Nutritional Appearance: average body habitus and well nourished Orientation: alert and oriented x3 Head Head: normal to inspection Ears: hearing grossly normal bilaterally Nose: external nose normal Face and Sinus: face symmetric Eyes General: appearance normal, both eyes and all related structures Eyelids: eyelids normal Conjunctivae: conjunctivae normal Pupils: PERRL and pupil size EOM: EOM intact bilaterally Neck Neck: no JVD Carotids: Negative bruit Chest Chest inspection: normal inspection of the chest and normal respiratory effort Auscultation: Bilateral: Clear to Auscultation Cardio Palpation: normal PMI Rate: regular rate Rhythm: regular rhythm Heart sounds: S1 normal and S2 normal GI GI: normal to inspection, soft and other (has a mackenzie catheter) Neuro General: patient alert, patient awake and patient oriented x3 Skin Skin: no rashes or lesions noted Extremities Pulses: Normal: Right Posterior Tibial Pulse, Left Posterior Tibial Pulse, RightRadial Pulse and Left Radial Pulse Lower Extremity Edema: None: Bilateral Psych Psychological: normal affect Assessment & Plan Assessment/Plan (1) Abnormal stress test: (2) H/O coronary artery bypass surgery: (3) HTN (hypertension): QUALIFIERS: Hypertension type: essential hypertension Qualified Code(s): I10 - Essential (primary) hypertension (4) History of coronary artery stent placement: (5) Dyslipidemia: PLAN: Plan Patient will follow-up after diagnostic heart catheterization. 04/29/25 1414 Cosigner Signature (if applicable): CC: Dr. Dre De Los Santos MD; VIVIAN Davidson~ Signed [facility]09-23-2025 [facility]09-22-2025 Radiology Diagnostic study note [facility] Imaging Services [address] [place] [address] Chest PA and Lateral MR#: [id number] Acct: [id number] Name: YONY VEGA Rep #: [id number] : 1955 M 69 From: Tone Zaidi MD PCP: Dr. Dre De Los Santos MD Status: PRE SD C Study:Chest PA and Lateral Date of Exam: 04/28/25 Exam# [id number] Ordering Dr: Tereza Brito NP PULLBOAT ENGINEER-C PROCEDURE: CHEST PA AND LATERAL 04/28/2025 REASON FOR EXAM: CARDIAC CATH TECHNIQUE: Procedure Code: RADCXR Modality: DX Procedure: Three-view CHEST PA AND LATERAL COMPARISON: AP chest of 10/13/2024. RAD/Chest PA and Lateral IMPRESSION: Prior sternotomy again noted. Prominent arterial calcification is again seen throughout. Prior coronary artery stenting seen. Prior comminuted fracture of the proximal left humerus, with at least partial interval healing noted. No pulmonary edema is now seen. No pleural effusion or pneumothorax is noted. The lungs appear clear of acute disease. The cardiomediastinal silhouette is not enlarged. Mild thoracic spine degenerative changes are seen, along with very extensive DISH. [id number] CC: PULLBOAT ENGINEER-C Tereza Brito; Dr. Dre De Los Santos MD ~ Supervisor Photocomposition: Signed [facility]08-11-2025 Evaluation note* Diagnosis Onset Date Resolution Status Admit Date HFrEF (heart failure with reduced ejection fraction) acute Augus t 2024 1:18pm Hyperkalemia acute March 17, 2025 1:18pm Dyslipidemia chronic March 17, 2025 1:18pm Essential hypertension [facility] 2024 1:18pm H/O coronary artery bypass surgery May 30, 2008March 17, 2025 1:18pm History of coronary artery stent placement January 02, 2015March 17 1:18pm [facility] Work Phone: 1(768) 877-283408-11-2025 Evaluation note* Diagnosis Onset Date Resolution Status Admit Date HFrEF (heart failure with reduced ejection fraction) acute March 17 1:18pm Hyperkalemia acute March 17, 2025 1:18pm Dyslipidemia chronic March 17, 2025 1:18pm Essential hypertension chronic [facility] 2024 1:18pm H/O coronary artery bypass surgery May 30, 2008March 17, 2025 1:18pm History of coronary artery stent placement January 02, 2015March 172024 1:18pm Abnormal stress test acute Apr 9:18am Dyslipidemia chronic April 302024 9:18am H/O coronary artery bypass surgery May 30, 2008April 9:18am History of coronary artery stent placement January 02, 2015April 30, 2025 9:18am HTN (hypertension) chronic 2024 9:18am [facility] Work Phone: 1(970) 248-897805-27-2025 NoteHNO ID: [id number] Author: BATOOL AU APRN.JUNIOR ANALYST Service: ? Author Type: Nurse Practitioner Type: [...] start having it changed at home by [facility], he does endorse some leakage from the [...] Anxiety and depression CAD (coronary artery disease) [place] 2008 CVA (cerebral infarction) DM (diabetes mellitus) [...] REVSC OPN/PRG FEM/POP W/ANG (more content not included)...[facility]05-27-2025 History of Present illness Narrative* Batool Au, BALTAZAR.JUNIOR ANALYST - 12/31/2024 3:09 PM EDT Isaias Vega is a 69 year old male who presents today for a follow up for Patient presents with: Established Patient: 3 month follow up/suprapubic catheter CHIEF COMPLAINT & HISTORY OF PRESENT ILLNESS CC: catheter change 69 year old male with a history of CVA, colo rectal cancer, chronic urinary retention, placement ofSPT by IR in July 2025, he presents today to have the #18 SPT changed, he will start having it changed at home by [facility], he does endorse some leakage from the [...] Anxiety and depression CAD (coronary artery disease) [place] 2008 CVA (cerebral infarction) DM (diabetes mellitus) [...] is discharged from rehab and back home theSPT will be changed by [facility] at home 2. Chronic retention of urine - ICD9: 788.29, ICD10: R33.9 -now managed with SPT 3. Type 2 diabetes mellitus with hyperglycemia, with long-term current use of insulin (HCC) - ICD9:250.00, 790.29, V58.67, ICD10: E11.65, Z79.4 -noted Patient to schedule follow up in 4 weeks if needed for SPT change, if changed at home then follow up in one year. Batool Au APRN.JUNIOR ANALYST documented in this encounter[facility] Discharge summary Author Miguel Angel Montez [facility] Note Date/Time November 28, 2024 1:0 0pm [facility] Medical Records Department [address] [place] [address] [facility] MR#: [id number] Acct: [id number] Name: YONY VEGA Rep #:[id number] : 1955 69 From: Miguel Angel Montez DO PCP: Dr. Kendy Modi MD Status:ADM IN Certification of patient admission REQUIRED AT TIME OF ADMISSION. I CERTIFY THAT POST-HOSPITAL ECF SERVICES ARE REQUIRED TO BE GIVEN ON AN IN-PATIENT BASIS BECAUSE OF THE ABOVE NAMED PATIENT'S NEED FOR FDC CARE ON A CONTINUING BASIS FOR THE CONDITION(S) FOR WHICH HE/SHE WAS RECEIVING IN-PATIENT HOSPITAL SERVICES PRIOR TO HIS/HER TRANSFER TO THE [facility]. 11/28/24 1300<Electronically signed by Miguel Angel Montez [...] Your Visit: Acute kidney injury Attending Provider: iMguel Angel Montez Primary Care Provider: Kendy Modi [...] 300 mg PO TID PRN (Reason: dyspepsia) [place] Saline 0.65 % aerosol,spray 2 spray intranasal [...] in before D/C Order can be placed): Intermediate Facility 11/28/24 1300 <Electronically signed by Miguel Angel Montez DO> Cosigner Signature (if applicable): CC: Dr. Claudio Devlin DO; Dr. Kendy Modi MD; Dr. Cy Arnett MD ~ [facility] Work Phone: 1(600) 235-468404-24-2025 [facility]04-23-2025 Progress note Author Miguel Angel [facility] Note Date/Time November 27, 2024 6:4 6pm [facility] Medical Records Department [address] [place] [address] Progress Note - Hospitalist 11/27/24 1845 MR#: [id number] Acct: [id number] Name: YONY VEGA Rep #:[id number] : 1955 69 From: Miguel Angel Montez DO PCP: Dr. Kendy Modi MD Status:ADM IN Location: [place] [address]- 1 Reason for Visit Reason for Visit: Diagnoses [...] 35 minutes Charges/Coding Visit Charges Inpatient E&M: 78038 Subs Hosp L2 11/27/24 1846 <Electronically signed by Miguel Angel Montez DO> Cosigner Signature (if applicable): CC: ~ Signed [facility] Work Phone: 1(456) 181-570504-22-2025 Progress note Author Miguel Angel Montez [facility] Note Date/Time November 26, 2024 4:2 8pm [facility] Medical Records Department [address] [place] [address] Progress Note - Hospitalist 11/26/24 1621 MR#: [id number] Acct: [id number] Name: YONY VEGA Rep #:[id number] : 1955 69 From: Miguel Angel Montez DO PCP: Dr. Kendy Modi MD Status:ADM IN Location: [place] [address] 1 Reason for Visit Reason for Visit: Diagnoses [...] like the patient to go to a assisted facility for short-term rehab services and case [...] 35 minutes Charges/Coding Visit Charges Inpatient E&M: 88466 Subs Hosp L2 11/26/24 1628 <Electronically signed by Miguel Angel Montez DO> Cosigner Signature (if applicable): CC: ~ Signed [facility] Work Phone: 1(454) 364-460304-22-2025 Progress note Author Cy Arnett [facility] Note Date/Time November 26, 2024 12: 20pm [facility] Medical Records Department [address] [place] [address] Progress Note - Nephrology 11/26/24 1219 MR#: [id number] Acct: [id number] Name: YONY VEGA Rep #:[id number] : 1955 69 From: Cy ravi MD PCP: Dr. Kendy Modi MD Status:ADM IN Location: [place] [address] Subjective Subjective no new events Objective Data [...] Cosigner Signature (if applicable): CC: ~ Signed [facility] Work Phone: 1([phone] 300-750504-21-2025 Progress note Author Miguel Angel Montez [facility] Note Date/Time November 25, 2024 6:4 0pm [facility] Medical Records Department [address] [place] [address] Progress Note - Hospitalist 11/25/24 1824 MR#: [id number] Acct: [id number] Name: YONY VEGA Rep #:[id number] : 1955 69 From: Miguel Angel Montez DO PCP: Dr. Kendy Modi MD Status:ADM IN Location: [place] [address] Reason for Visit Reason for Visit: Diagnoses [...] 79.5 H, Lymph % (Auto) 9.1 L, Pacific % (Auto) 10.2 H, Eos % (Auto) [...] Albumin 4.2, Globulin 3.5, Albumin/Globulin Ratio 1.2, [id number] H 11/24/24 22:57: Urine Color Yellow, Urine Clarity Sl. Cloudy, Urine pH 5.0, Ur Specific [place] 1.015, Urine Protein 30 H, Urine Glucose [...] or adjacent stranding is demonstrated. Reading Location[facility] Physical Exam Const alert, oriented x3 and [...] 35 minutes Charges/Coding Visit Charges Inpatient E&M: 72216 Subs Hosp L2 11/25/24 6885 <Electronically signed by Miguel Angel Montez DO> Cosigner Signature (if applicable): CC: ~ Signed [facility] Work Phone: 1(594) 251-528304-21-2025 History and physical note Author Claudio Devlin [facility] Note Date/Time November 24, 2024 11: 58pm [facility] Medical Records Department [address] [place] [address] H&P Exam - Hospitalist 11/24/242142 MR#: [id number] Acct: [id number] Name: YONY VEGA Rep #:[id number] : 1955 69 From: Claudio farooq DO PCP: Dr. Kendy Modi MD Status:ADM IN Location: [place] [id number]- 1 HPI - General General Date of Admission: 11/24/24 Date of Service: 11/24/24 Chief Complaint: Nausea/vomiting with dehydration and weakness HPI Narrative YONY VEGA, is a 69 M who presented to [facility] ED on 11/24/2024 with nausea/vomiting with dehydration [...] No other acute concerns at this time. [facility] Medical History Ileostomy present Colostomy in place [...] Q4H PRN dry 01/31/24 Unknown History aerosol (Coloma Saline) nasal passages carvedilol 6.25 mg tablet [...] 79.5 H, Lymph % (Auto) 9.1 L, Pacific % (Auto) 10.2 H, Eos % (Auto) [...] is a 69-year-old male who presented to [facility] ED on 11/24/24 with nausea/vomiting with dehydration [...] 75 minutes. Charges/Coding Visit Charges Inpatient E&M: 52822 Init Hosp L3 11/24/24 5967 <Electronically signed by Claudio Devlin DO> Cosigner Signature (if applicable): CC: Dr. Claudio Devlin DO; Dr. Kendy Modi MD~ Signed [facility] Work Phone: 1(260) 794-832904-21-2025 Discharge summary Author Dannielle Boyce [facility] Note Date/Time November 24, 2024 10: 57pm [facility] Medical Records Department [address] [place] [address] Emergency Department Summary 11/24/24 MR#: [id number] Acct: [id number] Name: YONY VEGA Rep #:[id number] : 1955 69 From: Dannielle PARK PCP: Dr. Kendy Modi MD Status:ADM IN Location: [place] [address] HPI <VIVIAN Umana - Last Filed: 11/24/24 21:54> [...] pain, hematemesis, and blood in the stool. [facility] <VIVIAN Umana - Last Filed: 11/24/24 21:54> [facility] Medical History Ileostomy present Colostomy in place [...] Q4H PRN dry 01/31/24 Unknown History aerosol (Coloma Saline) nasal passages carvedilol 6.25 mg tablet [...] Denies rash Neurologic Neurologic: Reports weakness EXAM <Dannielle Boyce PA - Last Filed: 11/24/24 21:54> Physical Exam [...] Oxygen Delivery Method Room Air Room Air [facility] <VIVIAN Umana - Last Filed: 11/24/24 21:54> [facility] Narrative Medical decision making narrative: Patient presenting [...] 79.5 H Lymph % (Auto) 9.1 L Pacific % (Auto) 10.2 H Eos % (Auto) [...] or adjacent stranding is demonstrated. Reading Location: [facility] <Dr. Ross Crump, DO - Last Filed: 11/24/24 22:57> [facility] Lab Data Labs: Laboratory Results - last 24 hr 11/24/24 19:55 WBC 8.9 RBC 4.40 L Hgb 12.8 L Hct 35.7 L MCV 81.1 MCH 29.1 MCHC 35.9 RDW Std Deviation 40.2 RDW Coeff of Maia 13.8 Plt Count 225 MPV 10.5 Immature Gran % (Auto) 0.500 Neut % (Auto) 79.5 H Lymph % (Auto) 9.1 L Pacific % (Auto) 10.2 H Eos % (Auto) [...] or adjacent stranding is demonstrated. Reading [facility] Management Discussion w/another healthcare provider: Hospitalist Treatment and Re-Evaluation :: I evaluated the patient with the physician bilingual teacher assistant and agree with their history present [...] Dehydration, Diarrhea, Nausea & vomiting Disposition Disposition: [facility] What to do if you have Problems For any increased pain, shortness of breath, bleeding, nausea or vomiting, chestpain, or any unexpected problems, contact your Primary Care Provider. Call [facility] ([phone]) or report to the closest Emergency Room. Call 911 if necessary. 11/24/242153 <Electronically signed by Dannielle PARK> Cosigner Signature (if applicable): 11/24/242256 <Electronically signed by Ross Crump DO> CC: Dr. Kendy Modi MD ~ Signed [facility] Work Phone: 1(574) 997-246804-21-2025 Evaluation note* Diagnosis Onset Date Resolution Status [...] (heart failure with reduced ejection fraction) acute Marus t 2024 1:18pm Dyslipidemia chronic March 17, 2025 1:18pm Essential hypertension chronic Au daisy 2024 1:18pm H/O coronary artery bypass surgery May 30, 2008 chronic March 17, 2025 1:18pm History of coronary artery stent placement January 02, 2015 chronic March 17 1:18pm Hyperkalemia inactive March 17, 2025 1:18pm [facility] Work Phone: 1(785) 240-979004-21-2025 Evaluation note* Diagnosis Onset Date Resolution Status [...] (heart failure with reduced ejection fraction) acute Marus t 2024 1:18pm Hyperkalemia acute March 17, 2025 1:18pm Dyslipidemia chronic March 17, 2025 1:18pm Essential hypertension chronic Au daisy 2024 1:18pm H/O coronary artery bypass surgery May 30, 2008 chronic March 17, 2025 1:18pm History of coronary artery stent placement January 02, 2015March 17 1:18pm [facility] Work Phone: 1(211) 290-962204-20-2025 Radiology Diagnostic study [facility]04-09-2025 Telephone encounter Note* Telephone Encounter - Jazmine Pang LPN - 11/13/2024 3:55 PM EDT Patient is aware to contact PCP for a refill of gabapentin. Patient has not been seen here since 06/2023. Jazmine Pang LPN [facility]04-09-2025 Miscellaneous Notes* Telephone Encounter - Jazmine Pang LPN - 11/13/2024 3:55 PM EDT Patient is aware to contact PCP for a refill of gabapentin. Patient has not been seen here since 06/2023. Jazmine Pang LPN * Telephone Encounter - Kimberlyn Calabrese - 11/13/2024 3:29 PM EDT Patient requesting refill of gabapentin 300mg. 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 Patient is completely out of medication. [facility] Telephone encounter Note * Telephone Encounter - Kimberlyn Calabrese - 11/13/2024 3:29 PM EDT Patient requesting refill of gabapentin 300mg. 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 Patient is completely out of medication. [facility] Work Phone: [phone]) [phone] Discharge summary Author Nicole Smith [facility] Note Date/Time October 18, 2024 1:3 4pm [facility] Medical Records Department [address] [place] [address] Discharge Summary 10/18/24 1247 MR#: [id number] Acct: [id number] Name: SILVIAYONYJennifer AMATO Rep #:[id number] : 1955 68 From: Nicole Smith MD PCP: Dr. Kendy Modi MD Status:ADM IN [facility] Prov[facility] Date of Admission: 10/10/24 Date of Discharge: 10/18/24 Primary Care Physician: Dr. Kendy Modi MD Consultations 10/10/24 05:23 Consult: Cardiology Routine Consulting Provider: Prateek Smith Reason for Consult: NSTEMI EMERGENT Consult: No MD Notified: Yes Date Notified: 10/10/24 Time Notified: 04:07 Method of Notification: ED Physician Initiated Consult: Container Washer / Pulmonary Medicine Routine Consulting Provider: Intensivists/Pulmonary Med Reason for Consult: Resp Failure, HF Exac, Sepsis, UTI, NSTEMI, ? PNA EMERGENT Consult: No MD Notified: Yes Date Notified: 10/10/24 Time Notified: 04:07 Method of Notification: Text Consult: Urology Routine Consulting Provider: Armando Ritchie Reason for Consult: Chronic urinary retention, complicated UTI, needs catheter change. EMERGENT Consult: No MD Notified: Yes Date Notified: 10/10/24 Time Notified: 04:46 Method of Notification: Answering Service 10/11/24 08:48 Consult: Infectious Disease Routine Consulting Provider: Chris Collins Reason for Consult: CAUTI, history of fast no bacteria, E. coli/Klebsiella inpast EMERGENT Consult: No MD Notified: Yes Date Notified: 10/11/24 Time Notified: 08:48 Method of Notification: Text Consult: Nephrology Routine Consulting Provider: Cy Arnett Reason for Consult: MADELEINE, HF exa, on lasix drip, held for now, sepsis? EMERGENT Consult: No MD Notified: Yes Date Notified: 10/11/24 Time Notified: 08:49 Method of Notification: Text 10/15/24 02:37 Consult: Onc/Wound/home health aid Routine Comment: Reason for Consult:: colostomy/urostomy Comments:: [...] mg chewable tablet 81 mg PO DAILY [facility] 03/20/16 insulin lispro 100 unit/mL subcutaneous pen [...] sodium chloride 0.65 % nasal spray aerosol (Coloma Saline) 2 spray intranasal Q4H PRN dry [...] 68-year-old male with history as above presented [facility] ED 10/10/2024 due to confusion and dyspnea. [...] When you eat out, ask that the space planner not add any salt to your dish. Don't eat fried or greasy foods. Be careful of bottled beverages. They can contain a lot of salt -Call 911 right away if you have: -Severe shortness of breath, such that you can't catch your breath even while resting -Severe chest pain that does not resolve with rest or nitroglycerin -[place], foamy mucus with cough and shortness of [...] 76.1 H, Lymph % (Auto) 10.3 L, Pacific % (Auto) 10.9 H, Eos % (Auto) [...] Simvastatin 80mg Discharge Plan Admission Admit Date/Time: 10/10/24 04:04 [...] When you eat out, ask that the space planner not add any salt to your dish. Don't eat fried or greasy foods. Be careful of bottled beverages. They can contain a lot of salt -Call 911 right away if you have: -Severe shortness of breath, such that you can't catch your breath even while resting -Severe chest pain that does not resolve with rest or nitroglycerin -[place], foamy mucus with cough and shortness of [...] 300 mg PO TID PRN (Reason: dyspepsia) [place] Saline 0.65 % aerosol,spray 2 spray intranasal [...] Health Service Charges/Coding Visit Charges Inpatient E&M: 44622 Disch Hosp >30min 10/18/24 1334 <Electronically signed by Nicole Smith MD> Cosigner Signature (if applicable): CC: Dr. Kendy Modi MD; Dr. Nicole Smith MD~ Signed [facility] Work Phone: [phone]) [phone] Discharge summary Author Nicole Smith [facility] Note Date/Time October 18, 2024 1:3 3pm [facility] Medical Records Department [address] [place] [address] Instructions for Home/Discharge Instructions 10/18/24 1241 MR#: [id number] Acct: [id number] Name: YONY VEGA Rep #:[id number] : [...] When you eat out, ask that the space planner not add any salt to your dish. Don't eat fried or greasy foods. Be careful of bottled beverages. They can contain a lot of salt -Call 911 right away if you have: -Severe shortness of breath, such that you can't catch your breath even while resting -Severe chest pain that does not resolve with rest or nitroglycerin -[place], foamy mucus with cough and shortness of [...] 300 mg PO TID PRN (Reason: dyspepsia) Coloma Saline 0.65 % aerosol,spray 2 spray intranasal [...] MD; Dr. Chris Collins MD ~ Signed [facility] Work Phone: 1(953) 156-555303-14-2025 [facility]03-14-2025 Progress note Author Tahira Richards [facility] Note Date/Time October 18, 2024 9:5 0am [facility] Medical Records Department [address] [place] [address] Progress Note - Nephrology 10/15/24 1132 MR#: [id number] Acct: [id number] Name: YONY VEGA Rep #:[id number] : 1955 68 From: Tahira kuhn PULLBOAT ENGINEER-C PCP: Dr. Kendy Modi MD Status:ADM IN Location: [place] [address] Subjective Subjective Patient sitting in chair. Denies [...] 72.8 H, Lymph % (Auto) 8.9 L, Pacific % (Auto) 14.5 H, Eos % (Auto) [...] by Cy Arnett MD> CC: ~ Signed [facility] Work Phone: 1(915) [phone] Progress note Author Nicole Smith [facility] Note Date/Time October 17, 2024 5:1 3pm [facility] Medical Records Department [address] [place] [address] Progress Note - Hospitalist 10/17/24 1710 MR#: [id number] Acct: [id number] Name: YONY VEGA Rep #:[id number] : 1955 68 From: Nicole Smith MD PCP: Dr. Kendy Modi MD Status:ADM IN Location: [place] [address] Reason for Visit Reason for Visit: Diagnoses Sepsis, unspecified organism (10/10/24) Acidosis, unspecified (10/10/24) Non-ST elevation (NSTEMI) myocardial infarction (10/10/24) Atherosclerotic heart disease of [place] coronary artery without angina pectoris (10/10/24) Unspecified [...] 10/17/24 16:25 10/17/24 16:25 10/17/24 16:25 10/17/24 16:25 10/17/24 07:37 FiO2 35 10/17/24 00:05 Oxygen Flow Rate (L/min) 5 Oxygen Delivery Method Room Air Weight: 68.2 kg Body Mass Index (BMI) 23.5 Intake & Output: Intake and Output for Last 24 Hours 10/15/24 10/16/24 10/17/24 23:59 23:59 23:59 Intake Total 890 / 890 1070 / 1070 Output Total 2575 / 2575 138 / 1985 1900 / 1900 Balance -1685 [...] 79.4 H, Lymph % (Auto) 8.1 L, Pacific % (Auto) 9.6, Eos % (Auto) 2.1, [...] documentation, 36Minutes Charges/Coding Visit Charges Inpatient E&M: 74918 Subs Hosp L2 10/17/24 1713 <Electronically signed by Nicoel Smith MD> Cosigner Signature (if applicable): CC: ~ Signed [facility] Work Phone: 1([phone] 356-750603-12-2025 Progress note Author Nicole Smith [facility] Note Date/Time October 16, 2024 2:4 9pm [facility] Medical Records Department [address] [place] [address] Progress Note - Hospitalist 10/16/24 0831 MR#: [id number] Acct: [id number] Name: SILVIAYONY Rep #:[id number] : 1955 68 From: Nicole Smith MD PCP: Dr. Kendy Modi MD Status:ADM IN Location: [place] [address] Reason for Visit Reason for Visit: Diagnoses Sepsis, unspecified organism (10/10/24) Acidosis, unspecified (10/10/24) Non-ST elevation (NSTEMI) myocardial infarction (10/10/24) Atherosclerotic heart disease of [place] coronary artery without angina pectoris (10/10/24) Unspecified [...] (Auto) 69.7, Lymph % (Auto) 12.9 L, Pacific % (Auto) 13.8 H, Eos % (Auto) [...] Smith MD Charges/Coding Visit Charges Inpatient E&M: 61934 Subs Hosp L2 10/16/24 1449 <Electronically signed by Nicole Smith MD> Cosigner Signature (if applicable): CC: ~ Signed [facility] Work Phone: 1([phone]) 407-824903-11-2025 Progress note Author Chris Collins [facility] Note Date/Time October 15, 2024 10: 52am [facility] Medical Records Department [address] [place] [address] Progress Note - Infect Disease 10/15/24 1050 MR#: [id number] Acct: [id number] Name: YONY VEGA Rep #:[id number] : 1955 68 From: Chris kumar MD PCP: Dr. Kendy Modi MD Status:ADM IN Location: [place] [address] Physical Exam Narrative Feeling better, no fever, [...] Cosigner Signature (if applicable): CC: ~ Signed [facility] Work Phone: 1([phone] 310-796003-11-2025 Progress note Author Nicole Smith [facility] Note Date/Time October 15, 2024 10: 42am [facility] Medical Records Department [address] [place] [address] Progress Note - Hospitalist 10/15/24901 MR#: [id number] Acct: [id number] Name: YONY VEGA Rep #:[id number] : 1955 68 From: Nicole Smith MD PCP: Dr. Kendy Modi MD Status:ADM IN Location: [place] [address] Reason for Visit Reason for Visit: Diagnoses Sepsis, unspecified organism (10/10/24) Acidosis, unspecified (10/10/24) Non-ST elevation (NSTEMI) myocardial infarction (10/10/24) Atherosclerotic heart disease of [place] coronary artery without angina pectoris (10/10/24) Unspecified [...] 72.8 H, Lymph % (Auto) 8.9 L, [place] % (Auto) 14.5 H, Eos % (Auto) [...] Smith MD Charges/Coding Visit Charges Inpatient E&M: 82134 Subs Hosp L2 10/15/24 1042 <Electronically signed by Nicole Smith MD> Cosigner Signature (if applicable): CC: ~ Signed [facility] Work Phone: [phone] Progress note Author Etienne Darden [facility] Note Date/Time October 15, 2024 8:1 8am [facility] Medical Records Department [address] [place] [address] Progress Note - Cardiology 10/15/24804 MR#: [id number] Acct: [id number] Name: YONY VEGA Rep #:[id number] : 1955 68 From: Etienne Darden MD PCP: Dr. Kendy Modi MD Status:ADM IN Location: [place] [id number]- 1 Subjective Subjective Patient resting comfortably in [...] 72.8 H, Lymph % (Auto) 8.9 L, [place] % (Auto) 14.5 H, Eos % (Auto) [...] 72.8 H, Lymph % (Auto) 8.9 L, [place] % (Auto) 14.5 H, Eos % (Auto) [...] is reevaluated. Charges/Coding Visit Charges Inpatient E&M: 28343 Subs Hosp L2 10/15/24 0818 <Electronically signed by Etienne Darden MD> Cosigner Signature (if applicable): CC: ~ Signed [facility] Work Phone: [phone]) 576-928503-10-2025 Progress note Author Cy Arnett [facility] Note Date/Time October 14, 2024 7:1 3pm [facility] Medical Records Department [address] [place] [address] Progress Note - Nephrology 10/14/241912 MR#: [id number] Acct: [id number] Name: YONY VEGA Rep #:[id number] : 1955 68 From: Cy ravi MD PCP: Dr. Kendy Modi MD Status:ADM IN Location: [place] [address] 1 Subjective Subjective no new events Objective Data [...] 76.2 H, Lymph % (Auto) 8.2 L, Pacific % (Auto) 12.5 H, Eos % (Auto) [...] Cosigner Signature (if applicable): CC: ~ Signed [facility] Work Phone: 1([phone] 187-489603-10-2025 Progress note Author Nicole Smith [facility] Note Date/Time October 14, 2024 5:4 9pm [facility] Medical Records Department [address] [place] [address] Progress Note - Hospitalist 10/14/24 0936 MR#: [id number] Acct: [id number] Name: YONY VEGA Rep #:[id number] : 1955 68 From: Nicole Smith MD PCP: Dr. Kendy Modi MD Status:ADM IN Location: [place] [address] Reason for Visit Reason for Visit: Diagnoses Sepsis, unspecified organism (10/10/24) Acidosis, unspecified (10/10/24) Non-ST elevation (NSTEMI) myocardial infarction (10/10/24) Atherosclerotic heart disease of [place] coronary artery without angina pectoris (10/10/24) Unspecified [...] 76.2 H, Lymph % (Auto) 8.2 L, [place] % (Auto) 12.5 H, Eos % (Auto) [...] least moderate bilateral pleural effusions. Reading Location: [facility] Rhythm Strip Rhythm Strip: Sinus Rhythm Rate: [...] Smith MD Charges/Coding Visit Charges Inpatient E&M: 11165 Subs Hosp L2 10/14/24 1749 <Electronically signed by Nicole Smith MD> Cosigner Signature (if applicable): CC: ~ Signed [facility] Work Phone: 1(327) 917-172603-10-2025 Progress note Author Chris Collins [facility] Note Date/Time October 14, 2024 12: 53pm [facility] Medical Records Department [address] [place] [address] Progress Note - Infect Disease 10/14/24 1251 MR#: [id number] Acct: [id number] Name: YONY VEGA Rep #:[id number] : 1955 68 From: Chris kumar MD PCP: Dr. Kendy Modi MD Status:ADM IN Location: [place] [address] Physical Exam Narrative Feeling better, no fever, [...] Cosigner Signature (if applicable): CC: ~ Signed [facility] Work Phone: 1([phone]) 507-735803-10-2025 Progress note Author Etienne Darden [facility] Note Date/Time October 14, 2024 [facility] [address] [place] [address] Progress Note - Cardiology 10/14/24 0841 MR#: [id number] Acct: [id number] Name: YONY VEGA Rep #:[id number] : 1955 68 From: Etienne Darden MD PCP: Dr. Kendy Modi MD Status:ADM IN Location: [place] [address] Subjective Subjective Patient is resting comfortably in [...] 76.0 H, Lymph % (Auto) 9.6 L, [place] % (Auto) 12.0 H, Eos % (Auto) [...] 76.2 H, Lymph % (Auto) 8.2 L, [place] % (Auto) 12.5 H, Eos % (Auto) [...] 76.0 H, Lymph % (Auto) 9.6 L, [place] % (Auto) 12.0 H, Eos % (Auto) [...] 76.2 H, Lymph % (Auto) 8.2 L, [place] % (Auto) 12.5 H, Eos % (Auto) [...] least moderate bilateral pleural effusions. Reading Location: [facility] Physical Exam Const alert HEENT normocephalic Neck [...] renal function. Charges/Coding Visit Charges Inpatient E&M: 01281 Subs Hosp L2 10/14/24 0849 <Electronically signed by Etienne Darden MD> Cosigner Signature (if applicable): CC: ~ Signed [facility] Work Phone: 1(653) 568-582603-09-2025 Progress note Author Matt Penny [facility] Note Date/Time October 13, 2024 2:01 pm [facility] Medical Records Department [address] [place] [address] Progress Note - Hospitalist 10/13/24 0753 MR#: [id number] Acct: [id number] Name: YONY VEGA Rep #:[id number] : 1955 68 From: Matt Simon PCP: Dr. 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 BNP also high. Discussed with the spring tacker. Physical exam: General: Awake, oriented x 3. [...] edema Patient on IV vancomycin and Zosyn. Container Washer consulted. Infectious workup ordered. 10/11: Respiratory panel [...] yesterday. 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 Recent urine culture with Klebsiella. 2. Acute hypoxic respiratory failure: Patient was 86% on room air. ABG shows 7.31/40/72 on 85% FiO2 Airvo suggestive of increased AA gradient. Bicarb 22. Anion gap 16 creatinine therefore increased anion gap metabolic acidosis 10/10: Respiratory status is better. Patient looks more calm with less shortness of breath though remains hypoxic 10/12: Respiratory status worse than yesterday and overnight patient was on BiPAP. Patient was put back on the Lasix questionable. #2. 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 Chest x-ray suggestive of pulmonary edema. Troponins elevated but [place]ff[place], 409, 407 and 11/12/1976. proBNP hide about 3000. As Patient on IV heparin drip, aspirin and Plavix. Human Relations Professor consulted. 2D echo ordered. ECHO noted 05/28/2024 with LVEF 60%, moderate focal MV calcification, bileaflet, mild MVI, mild TBI, moderate diffuse aortic valve calcification with sclerosis without stenosis 10/11: Repeat echo shows severe LV segmental wall motion abnormality, EF 35 to 40%, stage III diastolic dysfunction, LA severely enlarged. Moderate 2+ MR, moderate to severe TR. 10/12: Discussed with the spring tacker. #3. Acute kidney injury on CKD 2: admission BUN/Cr 26/1.39, GFR 56, baseline renal function primarily 0.6-0.7. Hold nephrotoxic 10/11: Marked Jump on creatinine from 1.33-2.11. Hold furosemide drip. DC lisinopril vancomycin and Zosyn discontinued as Zosyn increases creatinine with increased tubular secretion. Combination Welder consulted 10/12: Patient was seen by service dog trainer on 10/11. MADELEINE from multiple etiologies, diuretic, heart failure, cardiorenal disease, IV contrast with probability of ATN as per the service dog trainer. Continue supportive treatment. Creatinine 2.08 similar to yesterday #4. CAD and peripheral arterial disease and carotid disease status post right CEA and history of stroke/CVA: Status post CABG x 5 with ZUNIGA to LAD and D1, free KIMBERLYN to PDA, SVG to ramus, SVG to OM1 2007 and PCI including [id number] 2014: Continue aspirin, Plavix, statin, Coreg. Patient [...] and he changed the suprapubic catheter 18 Albanian size. 14. GERD: continue patient on PPI. 15DVT prophylaxis: continue heparin drip. . CODE status: Patient healthcare Pap civil attorney living will not in place but [...] 76.0 H, Lymph % (Auto) 9.6 L, Pacific % (Auto) 12.0 H, Eos % (Auto) [...] active complex medical conditions), discussion with the spring tacker and service dog trainer, management of complex active clinical problems review of labs and imaging is 35 minutes. Visit Charges Inpatient E&M: 22782 Subs Hosp L3 10/13/24 1401 <Electronically signed by Matt Penny MD> Cosigner Signature (if applicable): CC: ~ Signed [facility] Work Phone: [phone] Progress note Author Prateek Smith [facility] Note Date/Time October 13, 2024 10:5 6am [facility] Medical Records Department [address] [place] [address] Progress Note - Cardiology 10/13/24 1049 MR#: [id number] Acct: [id number] Name: YONY VEGAE Rep #:[id number] : 1955 68 From: Prateek Smith MD PCP: Dr. Kendy Modi MD Status:ADM IN Location: [place] [address]- 1 Subjective Subjective Sitting up in chair. Complaining [...] 76.0 H, Lymph % (Auto) 9.6 L, Pacific % (Auto) 12.0 H, Eos % (Auto) [...] 76.0 H, Lymph % (Auto) 9.6 L, Pacific % (Auto) 12.0 H, Eos % (Auto) [...] Cosigner Signature (if applicable): CC: ~ Signed [facility] Work Phone: 1([phone]) [phone] Radiology Diagnostic study [facility]03-09-2025 Progress note Author Kendra Yuan [facility] Note Date/Time October 12, 2024 10:0 7pm [facility] Medical Records Department [address] [place] [address] Progress Note - Hospitalist 10/12/242306 MR#: [id number] Acct: [id number] Name: YONY VEGA Rep #:[id number] : 1955 68 From: Kendra Yuan MD PCP: Dr. Kendy Modi MD Status:ADM IN Location: [place] [address] Hospitalist Note Increased oxygen requirements, crackles, will pulse dose with IV lasix x [address] BIPAP. 10/12/242306 <Electronically signed by Kendra Yuan MD> Cosigner Signature (if applicable): CC: ~ Signed [facility] Work Phone: [phone]) 479-903203-08-2025 Progress note Author Sonu Obrien [facility] Note Date/Time October 12, 2024 9:44 pm [facility] Medical Records Department [address] [place] [address] Progress Note - Nephrology 10/12/242227 MR#: [id number] Acct: [id number] Name: YONY VEGA Rep #:[id number] : 1955 68 From: Sonu Obrien MD PCP: Dr. 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 Container Washer consulted. Infectious workup ordered. 10/11: Respiratory panel [...] yesterday. 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 [...] suggestive of pulmonary edema. Troponins elevated but Neffs, 409, 407 and 11/12/1976. proBNP hide about 3000. As Patient on IV heparin drip, aspirin and Plavix. Human Relations Professor consulted. 2D echo ordered. ECHO noted 05/28/2024 [...] Zosyn increases creatinine with increased tubular secretion. Combination Welder consulted 10/12: Patient was seen by service dog trainer on 10/11. MADELEINE from multiple etiologies, diuretic, heart failure, cardiorenal disease, IV contrast with probability of ATN as per the service dog trainer #4. CAD and peripheral arterial disease and carotid disease status post right CEA and history of stroke/CVA: Status post CABG x 5 with ZUNIGA to LAD and D1, free KIMBERLYN to PDA, SVG to ramus, SVG to OM1 2007 and PCI including [id number] 2014: Continue aspirin, Plavix, statin, Coreg. Patient [...] and he changed the suprapubic catheter 18 Albanian size. 14. GERD: continue patient on PPI. 15DVT prophylaxis: continue heparin drip. . CODE status: Patient healthcare Pap civil attorney living will not in place but [...] declined intubation. Charges/Coding Visit Charges Inpatient E&M: 92583 Subs Hosp L3 10/12/24 1407 <Electronically signed by Matt Penny MD> Cosigner Signature (if applicable): CC: ~ Signed [facility] Work Phone: [phone]) [phone] Progress note Author Prateek Smith [facility] Note Date/Time October 12, 2024 9:42 am [facility] Medical Records Department [address] [place] [address] Progress Note - Cardiology 10/12/24 1039 MR#: [id number] Acct: [id number] Name: YONY VEGA Rep #:[id number] : 1955 68 From: Prateek Smith MD PCP: Dr. Kendy Modi MD Status:ADM IN Location: [id number]- 1 Subjective Subjective Sitting up in chair. Looks much improved. Denies any complaints. 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 Non-ST elevation NH with elevated troponins. 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 Kendy Modi MD~ Signed [facility] Work Phone: [phone] Consult note Author Armando Ritchie [facility] Note Date/Time October 11, 2024 10:5 6am [facility] Medical Records Department [address] [place] [address] Consultation - Urology 10/11/24 1155 MR#: [id number] Acct: [id number] Name: YONY VEGA Rep #:[id number] : [...] change the suprapubic catheter toa new 18 Albanian suprapubic catheter was placed today. He can follow-up with hisurologist after discharge. Nurses are able to flush the catheter if necessary. 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 Kendy Modi MD~ Signed [facility] Work Phone: [phone] Progress note Author Reagan Kushal [facility] Note Date/Time October 11, 2024 10:4 7am [facility] Medical Records Department [address] [place] [address] Progress Note - Container Washer 10/11/24 1140 MR#: [id number] Acct: [id number] Name: YONY VEGA Rep #:[id number] : 1955 68 From: Reagan Kushal [place] PCP: Dr. Kendy Modi MD Status:ADM IN [...] without intubation This note was generated with SensiGen dictation software. It may contain incorrectwords, spelling, [...] demonstrating growth of a gram-negative moncho, 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. 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.] Intake and Output for Last 24 Hours 03/05/25 03/06/25 03/07/25 23:59 23:59 23:59 Intake Total 2068.17 / 2068.17 385.27 / 385.27 Output Total 1650 / [...] (Auto) 75.6 H, Lymph % (Auto) 10.4 L,Pacific % (Auto) 13.3 H, Eos % (Auto) [...] Mackenzie Urine Culture - 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 Rhythm Strip Rhythm Strip: Sinus Tach Cardiology Labs/Tests 10/10/24 18:33: APTT 98.3 H* 10/11/24 02:00: WBC 7.5, RBC 3.08 L, Hgb 8.9 L, Hct 27.3 L, MCV 88.6, MCH 28.9, MCHC 32.6, Plt Count 210, MPV 10.2, Immature Gran % (Auto) 0.400, Neut % (Auto) 75.6 H, Lymph % (Auto) 10.4 L, Pacific % (Auto) 13.3 H, Eos % (Auto) [...] Cosigner Signature (if applicable): CC: ~ Signed [facility] Work Phone: [phone] Consult note Author Chris Collins [facility] Note Date/Time October 11, 2024 9:21 am [facility] Medical Records Department [address] [place] [address] Consultation - Infectious Dx 10/11/24 1018 MR#: [id number] Acct: [id number] Name: YONY VEGA Rep #:[id number] : 1955 68 From: Chris kmuar MD PCP: Dr. Kendy Modi MD Status:ADM [...] performed and neg except as noted above. [facility] Medical History Ileostomy present Colostomy in place [...] mg chewable tablet 125 mg PO 4X/DAY CA N abdominal 01/31/24 Unknown History distention sodium chloride 0.65 % nasal spray 2 spray intranasal Q4H PRN dry 01/31/24 Unknown History aerosol (Coloma Saline) nasal passages tamsulosin 0.4 mg capsule [...] (Auto) 75.6 H, Lymph % (Auto) 10.4 L,Pacific % (Auto) 13.3 H, Eos % (Auto) [...] applicable): CC: Dr. Kendy Modi MD~ Signed [facility] Work Phone: [phone]) [phone] Progress note Author Matt Penny [facility] Note Date/Time October 11, 2024 7:51 am [facility] Medical Records Department [address] [place] [address] Progress Note - Hospitalist 10/11/24 0840 MR#: [id number] Acct: [id number] Name: YONY VEGA Rep #:[id number] : 1955 68 From: Matt Simon PCP: Dr. Kendy Modi MD Status:ADM IN Location: ICU ICU-1 Reason for Visit Reason for Visit: Diagnoses Sepsis, unspecified organism (10/10/24) Acidosis, unspecified (10/10/24) Non-ST elevation (NSTEMI) myocardial infarction (10/10/24) Atherosclerotic heart disease of nenana coronary artery without angina pectoris (10/10/24) Unspecified [...] (Auto) 75.6 H, Lymph % (Auto) 10.4 L,Pacific % (Auto) 13.3 H, Eos % (Auto) [...] edema Patient on IV vancomycin and Zosyn. Container Washer consulted. Infectious workup ordered. 10/11: Respiratory panel [...] creatinine therefore increased anion gap metabolic acidosis. 10/05: Respiratory status is better. Patient looks more calm with less shortness of breath though remains hypoxic #2. Elevated troponin, potential NSTEMI type II most likely demand ischemia: Twelve-lead EKG shows sinus rhythm, mild ST depression V2-V5, T wave inversion. Chest x-ray suggestive of pulmonary edema. Troponins elevated but Neffs, 409, 407 and 11/12/1976. proBNP hide about 3000. As Patient on IV heparin drip, aspirin and Plavix. Human Relations Professor consulted. 2D echo ordered. ECHO noted 05/28/2024 [...] Zosyn increases creatinine with increased tubular secretion. Combination Welder consulted #4. CAD and peripheral arterial disease and carotid disease status post right CEA and history of stroke/CVA: Status post CABG x 5 with ZUNIGA to LAD and D1, free KIMBERLYN to PDA, SVG to ramus, SVG to OM1 2007 and PCI including [id number]-[id number] 2015: Continue aspirin, Plavix, statin, Coreg. Patient not [...] drip. . CODE status: Patient healthcare Pap civil attorney living will not in place but [...] declined intubation. Charges/Coding Visit Charges Inpatient E&M: 55682 Subs Hosp L3 10/11/24 0851 <Electronically signed by Matt Penny MD> Cosigner Signature (if applicable): CC: ~ Signed [facility] Work Phone: [phone]) 189-584003-06-2025 Progress note Author Matt Penny [facility] Note Date/Time October 10, 2024 3:26 pm [facility] Medical Records Department [address] [place] [address] Progress Note - Hospitalist 10/10/24 0808 MR#: [id number] Acct: [id number] Name: YONY VEGA Rep #:[id number] : [...] (Auto) 87.2 H, Lymph % (Auto) 5.4L, Pacific % (Auto) 6.6, Eos % (Auto) 0.2, [...] Clarity Cloudy, Urine pH 5.0, Ur Specific [place] 1.015, Urine Protein 100 H, Urine Glucose [...] (Auto) 86.7 H, Lymph % (Auto) 6.7L, Pacific % (Auto) 6.1, Eos % (Auto) 0.1, [...] evidence of pleural effusion identified.. Reading Location: [facility] Chest CTA 10/10/24 02:05 IMPRESSION: Motion [...] use of iterative reconstruction technique). Reading Location: [facility] Abdomen/Pelvis CT 10/10/24 02:10 IMPRESSION: No [...] use of iterative reconstruction technique). Reading Location: [facility] Physical Exam Narrative Seen and examined. [...] edema Patient on IV vancomycin and Zosyn. Container Washer consulted. Infectious workup ordered. 2. Acute hypoxic [...] suggestive of pulmonary edema. Troponins elevated but Neffs, 409, 407 and 11/12/1976. proBNP hide about 3000. As Patient on IV heparin drip, aspirin and Plavix. Human Relations Professor consulted. 2D echo ordered. ECHO noted 05/28/2024 [...] SVG to OM1 2007 and PCI including [id number] 2015: Continue aspirin, Plavix, statin, Coreg. Patient not [...] drip. . CODE status: Patient healthcare Pap civil attorney living will not in place but [...] declined intubation. Charges/Coding Visit Charges Inpatient E&M: 62248 Subs Hosp L3 10/10/24 0928 <Electronically signed by Matt Penny MD> Cosigner Signature (if applicable): CC: ~ Signed ADDENDUM by Dr. Matt Penny MD on 10/10/24 at 1626 Addendum 2D echo shows EF 35 to 40% with basal wall segments severely hypokinetic to akinetic but apex bertha well suggesting ZUNIGA to LAD is widely patent with other grafts of doubtful patency. Human Relations Professor advised to continue aspirin and Plavix and heparin infusion. Beta-blockers to continue. Coronary angiogram with possible revascularization prior to discharge home when UTI/sepsis volume status improves. 10/10/24 1626<Electronically signed by Matt Penny MD> Cosigner Signature (if applicable): cc: ~* Signed [facility] Work Phone: [phone] 355-226403-06-2025 Consult note Author Reagan Fatima [facility] Note Date/Time October 10, 2024 11:1 8am [facility] Medical Records Department [address] [place] [address] Consultation - Container Washer 10/10/24 0745 MR#: [id number] Acct: [id number] Name: YONY VEGA Rep #:[id number] : [...] without intubation This note was generated with SensiGen dictation software. It may contain incorrectwords, spelling, [...] medical intensive care unit for further management. [facility] Medical History Ileostomy present Colostomy in place [...] mg chewable tablet 125 mg PO 4X/DAY CA N abdominal 01/31/24 Unknown History distention sodium chloride 0.65 % nasal spray 2 spray intranasal Q4H PRN dry 01/31/24 Unknown History aerosol (Coloma Saline) nasal passages tamsulosin 0.4 mg capsule [...] (Auto) 87.2 H, Lymph % (Auto) 5.4L, Pacific % (Auto) 6.6, Eos % (Auto) 0.2, [...] Clarity Cloudy, Urine pH 5.0, Ur Specific [place] 1.015, Urine Protein 100 H, Urine Glucose [...] (Auto) 86.7 H, Lymph % (Auto) 6.7L, Pacific % (Auto) 6.1, Eos % (Auto) 0.1, [...] evidence of pleural effusion identified.. Reading Location: [facility] Chest CTA 10/10/24 02:05 IMPRESSION: Motion [...] use of iterative reconstruction technique). Reading Location: [facility] Abdomen/Pelvis CT 10/10/24 02:10 IMPRESSION: No [...] use of iterative reconstruction technique). Reading Location: [facility] Charges/Coding Visit Charges Inpatient E&M: 87309 Init Hosp L3 10/10/24 1218 <Electronically signed by Reagan Fatima DO> Cosigner Signature (if applicable): CC: Dr. Kendy Modi MD~ Signed [facility] Work Phone: [phone]) [phone] Consult note Author Prateek Smith [facility] Note Date/Time October 10, 2024 9:51 am [facility] Medical Records Department [address] [place] [address] Consultation - Cardiology 10/10/24 1039 MR#: [id number] Acct: [id number] Name: YONY VEGA Rep #:[id number] : [...] 2014 which revealed total occlusion of the nenana mid LAD, proximal left circumflex and proximal [...] be hypoxic. Patient denies orthopnea or PND. [facility] Medical History Ileostomy present Colostomy in place [...] mg chewable tablet 125 mg PO 4X/DAY CA N abdominal 01/31/24 Unknown History distention sodium chloride 0.65 % nasal spray 2 spray intranasal Q4H PRN dry 01/31/24 Unknown History aerosol (Coloma Saline) nasal passages tamsulosin 0.4 mg capsule [...] (Auto) 87.2 H, Lymph % (Auto) 5.4L, Pacific % (Auto) 6.6, Eos % (Auto) 0.2, [...] Clarity Cloudy, Urine pH 5.0, Ur Specific [place] 1.015, Urine Protein 100 H, Urine Glucose [...] (Auto) 86.7 H, Lymph % (Auto) 6.7L, Pacific % (Auto) 6.1, Eos % (Auto) 0.1, [...] 87.2 H, Lymph % (Auto) 5.4 L, Pacific % (Auto) 6.6, Eos % (Auto) 0.2, [...] Clarity Cloudy, Urine pH 5.0, Ur Specific [place] 1.015, Urine Protein 100 H, Urine Glucose [...] 86.7 H, Lymph % (Auto) 6.7 L, Pacific % (Auto) 6.1, Eos % (Auto) 0.1, [...] evidence of pleural effusion identified.. Reading Location: [facility] Chest CTA 10/10/24 02:05 IMPRESSION: Motion [...] use of iterative reconstruction technique). Reading Location: [facility] Abdomen/Pelvis CT 10/10/24 02:10 IMPRESSION: No [...] use of iterative reconstruction technique). Reading Location: [facility] Echocardiogram 10/10/24 05:23 Interpretation Summary Severe LV [...] applicable): CC: Dr. Kendy Modi MD~ Signed [facility] Work Phone: [phone] 199-751203-06-2025 Consult note Author Vishal Ndiaye [facility] Note Date/Time October 10, 2024 5:22 am [facility] Medical Records Department [address] [place] [address] Pharmacokinetic/Renal -Consult 10/10/24 06 MR#: [id number] Acct: [id number] Name: YONY VEGA Rep #:[id number] : [...] [date and time ordered]: 10/11 @ 1430 10/10/24 0622 <Electronically signed by Vishal zamorano> Date _ Vishal Ramos Signature (if applicable): Date CC: ~ Signed [facility] Work Phone: [phone]) 554-943603-06-2025 History and physical note Author Kendra Yuan [facility] Note Date/Time October 10, 2024 3:51 am [facility] Medical Records Department [address] [place] [address] H&P Exam - Hospitalist 10/10/24 0354 MR#: [id number] Acct: [id number] Name: YONY VEGA Rep #:[id number] : [...] urology for follow-up with his urologist at [facility] for outpatient change with urine culture with noted Klebsiella growth with cano sensitivity with associated acute encephalopathy thatimproved as well as lactic acidosis that improved who re- presents to the [facility] ED on 10/10/2024 with onset of low-grade [...] concern for overload component transitioned to BIPAP. [facility] Medical History Ileostomy present Colostomy in place [...] mg chewable tablet 125 mg PO 4X/DAY CA N abdominal 01/31/24 Unknown History distention sodium chloride 0.65 % nasal spray 2 spray intranasal Q4H PRN dry 01/31/24 Unknown History aerosol (Coloma Saline) nasal passages tamsulosin 0.4 mg capsule [...] (Auto) 87.2 H, Lymph % (Auto) 5.4L, Pacific % (Auto) 6.6, Eos % (Auto) 0.2, [...] Clarity Cloudy, Urine pH 5.0, Ur Specific [place] 1.015, Urine Protein 100 H, Urine Glucose [...] evidence of pleural effusion identified.. Reading Location: [facility] Chest CTA 10/10/24 02:05 IMPRESSION: Motion [...] use of iterative reconstruction technique). Reading Location: [facility] Assessment & Plan Assessment/Plan (1) Sepsis: [...] urology for follow-up with his urologist at [facility] for outpatient change with urine culture with noted Klebsiella growth with cano sensitivity with associated acute encephalopathy thatimproved as well as lactic acidosis that improved who re- presents to the [facility] ED on 10/10/2024 with onset of low-grade [...] SVG to OM1 2007 and PCI including [id number] 2014, will continue aspirin, Plavix as noted [...] drip. #18. CODE status: Patient healthcare Pap civil attorney living will not in place but [...] 16 minutes. Charges/Coding Visit Charges Inpatient E&M: 34982 Init Hosp L3 Procedures Hospitalists Procedures: 05561 Advncd Care Plan 30 Min 10/10/24 0450 [...] MD; Dr. Kendra Yuan MD ~* Signed [facility] Work Phone: 1(881) 221-173403-06-2025 Discharge summary Author Ross Crump [facility] Note Date/Time October 10, 2024 3:05 am [facility] Medical Records Department [address] [place] [address] Emergency Department Summary 10/10/24 MR#: [id number] Acct: [id number] Name: YONY VEGA Rep #:[id number] : [...] secondary to this brought himin for evaluation [facility] Medical History Ileostomy present Colostomy in place [...] mg chewable tablet 125 mg PO 4X/DAY CA N abdominal 01/31/24 Unknown History distention sodium chloride 0.65 % nasal spray 2 spray intranasal Q4H PRN dry 01/31/24 Unknown History aerosol (Coloma Saline) nasal passages tamsulosin 0.4 mg capsule [...] pain. The EKG was sent to the collar folder operator Dr. Smith who reviewed the EKGs and [...] 87.2 H Lymph % (Auto) 5.4 L Pacific % (Auto) 6.6 Eos % (Auto) 0.2 [...] Clarity Cloudy Urine pH 5.0 Ur Specific [place] 1.015 Urine Protein 100 H Urine Glucose [...] evidence of pleural effusion identified.. Reading Location: [facility] Chest CTA 10/10/24 02:05 IMPRESSION: Motion [...] use of iterative reconstruction technique). Reading Location: [facility] Abdomen/Pelvis CT 10/10/24 02:10 IMPRESSION: No [...] use of iterative reconstruction technique). Reading Location: [facility] Chest x-ray as interpreted by the [...] 300 mg PO TID PRN (Reason: dyspepsia) Coloma Saline 0.65 % aerosol,spray 2 spray intranasal [...] MD [Primary Care Provider] - Print Language: Mauritanian Disposition Disposition: Acute Care Hospital [facility] What to do if you have Problems For any increased pain, shortness of breath, bleeding, nausea or vomiting, chestpain, or any unexpected problems, contact your Primary Care Provider. Call [facility] ([phone]) or report to the closest Emergency Room. Call 911 if necessary. 10/10/24 0405 <Electronically signed by Ross Crump DO> Cosigner Signature (if applicable): CC: Dr. Kendy Modi MD ~ Signed [facility] Work Phone: 1(239) 869-635003-06-2025 Radiology Diagnostic study [facility]03-06-2025 Radiology Diagnostic study [facility]03-06-2025 Radiology Diagnostic study [facility] 09-27-2024 Telephone encounter Note* Telephone Encounter - Everardo Yusuf APRN.CNP - 09/27/2024 11:41 AM EST Please advise pt. to discuss with PCP for refill. Everardo Yusuf APRN.CNP [facility] Work Phone: 1(957) 753-194802-21-2025 Miscellaneous Notes* Telephone Encounter - Everardo Yusuf APRN.CNP - 09/27/2024 11:41 AM EST Please advise pt. to discuss with PCP for refill. Everardo Yusuf APRN.CNP * Telephone Encounter - Jazmine Pang LPN - 09/20/2024 2:26 PM EST Last OV here was 06/21/2023 and has no follow up scheduled here. Jazmine Pang LPN documented in this encounterMer[facility] Telephone encounter Note * Telephone Encounter - Jazmine Pang LPN - 09/20/2024 2:26 PM EST Last OV here was 06/21/2023 and has no follow up scheduled here. Jazmine Pang LPN [facility]02-11-2025 Telephone encounter Note* Telephone Encounter - Bozena Faulkner LPN - 09/17/2024 10:38 AM EST Faxed orders signed by Kenzie Miles APRN, CNP, DNP to [facility]. Bozena Faulkner LPN [facility]02-11-2025 Miscellaneous Notes* Telephone Encounter - Bozena Faulkner LPN - 09/17/2024 10:38 AM EST Faxed orders signed by Kenzie Miles APRN, [facility] to [facility]. Bozena Faulkner LPN * Telephone Encounter - Kenzie Drew APRN.[facility] - 09/16/2024 2:26 PM EST Order signed - please fax back. Kenzie Drew APRN.[facility] * Telephone Encounter - Bozena Faulkner LPN - 09/13/2024 4:07 PM EST Received order for that needs signed for change of catheter (SPT) from [facility]. Provided in Kenzie Drew CNP, DNP to sign on next clinic day. Bozena Faulkner LPN documented in this encounterMer[facility]25 Telephone encounter Note * Telephone Encounter - Kenzie Drew APRN.[facility] - 09/16/2024 2:26 PM EST Order signed - please fax back. Kenzie Drew APRN.[facility]02-07-2025 Telephone encounter Note* Telephone Encounter - Bozena Faulkner LPN - 09/13/2024 4:07 PM EST Received order for that needs signed for change of catheter (SPT) from [facility]. Provided in Kenzie Drew CNP, DNP to sign on next clinic day. Bozena Faulkner LPN [facility]02-04-2025 Telephone encounter Note* Telephone Encounter - Dionne Clinton RN - 09/10/2024 9:49 AM EST Called and left message that [facility]. Sent Orders, OV notes, and Demographics to [facility] at [phone], and [facility] fax# [phone], both fax confirmations received. I called and advised I faxed orders to both agencies. Advised to call if neither agency reaches out. [facility]02-04-2025 Miscellaneous Notes* Telephone Encounter - Dionne Clinton RN - 09/10/2024 9:49 AM EST Called and left message that [facility]. Sent Orders, OV notes, and Demographics to [facility] at [phone], and [facility] fax# [phone], both fax confirmations received. I called and advised I faxed orders to both agencies. Advised to call if neither agency reaches out. * Telephone Encounter - Edgardo Hurtado PSS - 09/09/2024 2:29 PM EST Thank you for the referral of your patient to [facility]. At this time, we are at capacity and are unable to accept your patient. In order to help your patient receive quality home care, we have included reputable agencies that service this area: [facility] [phone] or [facility] [phone]. Please contact this agency and they will work with your patient to arrange timely services. Thank you, TOSIN Eckert 09/09/2024 2:29 PM documented in this encounterMer[facility]25 Telephone encounter Note * Telephone Encounter - Edgardo Hurtado PSS - 09/09/2024 2:29 PM EST Thank you for the referral of your patient to [facility]. At this time, we are at capacity and are unable to accept your patient. In order to help your patient receive quality home care, we have included reputable agencies that service this area: [facility] [phone] or [facility] [phone]. Please contact this agency and they will work with your patient to arrange timely services. Thank you, TOSIN Eckert 09/09/2024 2:[address] [facility]02-03-2025 Instructions* Patient Instructions* Kenzie Drew APRN.JUNIOR ANALYST, DNP - 09/09/2024 2:09 PM EST Follow up with Kenzie Drew APRN.CNP, DNP in 3 months SPT Will need changed in 6 weeks. 18 Albanian catheter. Home health orders placed. Return to [...] again and maintaining your health. Kenzie Drew APRN.CNP, DNP documented in this encounterMer[facility] Health [facility]25 History of Present illness Narrative* Kenzie Drew APRN.CNP, DNP - 09/09/2024 1:30 PM EST [facility] MALE PATIENT - [...] Hx: 2 CVA with left-sided hemiplegia, diabetes, [employer] anticoag - Eliquis, colorectal cancer, ileostomy for [...] Anxiety and depression CAD (coronary artery disease) [place] 2008 CVA (cerebral infarction) DM (diabetes mellitus) [...] LINE INSERT/CONSULT 12/07/2023 REVSC OPN/PRG FEM/POP W/ANGIOPLASTY [facility] 07-01-15 REVSC OPN/PRG FEM/POP W/ANGIOPLASTY [facility] 08-14-15 REVSC OPN/PRQ TIB/DIANNA W/ANGIOPLASTY [facility] 07-01-15 REVSC OPN/PRQ TIB/DIANNA [facility] [...] discussed with the Patient or Patient's Authorized Solar Installation Manager. Asapplicable, any other physician, advance practice provider, medical student, or other health professional student that will be observing or involved in the sensitive examination for educational or training purposes was discussed with the Patient or Authorized Solar Installation Manager. The Patient or Authorized Solar Installation Manager has agreed to proceed with the sensitive [...] of infection. - SUPRAPUBIC TUBE CHANGE - [facility] I spent a total of 35 minutes on the date of the service which included preparing to see the patient, [id number] patient care, completing clinical documentation, performing a medically appropriate examination, counseling and educating the patient/family/caregiver and ordering medications, tests, or procedures. Kenzie Drew DNP, ARTI Department of Urology [facility] documented in this encounterMercy Health St. [facility]02-03-2025 NoteHNO ID: [id number] Author: KENZIE DREW APRN.[facility] Service: ? Author Type: Nurse Practitioner Type: Progress Notes Filed: 09/09/2024 16:26 Note Text: [facility] MALE PATIENT - [...] Hx: 2 CVA with left-sided hemiplegia, diabetes, [employer] anticoag - Eliquis, colorectal cancer, ileostomy for [...] Anxiety and depression CAD (coronary artery disease) [place] 2008 CVA (cerebral infarction) DM (diabetes mellitus) [...] intravenously every 6 hour (more content not included)...[facility]01-22-2025 Note [facility]01-19-2025 Evaluation note* Diagnosis Onset Date Resolution Status [...] artery disease chronic M arch 2024 4:04am [facility] Work Phone: 1(953) 281-862901-19-2025 Evaluation note* Diagnosis Onset Date Resolution Status [...] infection) delete d October 10, 2024 4:04am [facility] Work Phone: 1(576) 243-109701-19-2025 Evaluation note* Diagnosis Onset Date Resolution Status [...] October 30, 2024 2:11pm Essential hypertension chronic [facility] 2024 2:11pm H/O coronary artery bypass surgery May 30, 2008 chronic October 30, 2 025 2:11pm History of coronary artery stent placement January 02, 2015 chronic October 30, 2024 2:11pm [facility] Work Phone: 1(244) 111-418601-19-2025 Evaluation note* Diagnosis Onset Date Resolution Status [...] October 30, 2024 2:11pm Essential hypertension chronic [facility] 2024 2:11pm H/O coronary artery bypass surgery May 30, 2008 chronic October 30, 2 025 2:11pm History of coronary artery stent placement January 02, 2015 chronic October 30, 2024 2:11pm MADELEINE (acute kidney injury) acute November 24, 2024 10:33pm Pancreatitis acute November 24, 2024 10:33pm Uremia acute November 24 10:33pm [facility] Work Phone: 1(698) 582-372701-19-2025 Evaluation note* Diagnosis Onset Date Resolution Status Admit Date Acute febrile illness resolved Aug 8:42pm Acute UTI resolved August 25, 2024 8:42pm Complicated urinary tract infection resolved August 25 8:42pm Elevated lactic acid level resolved August 25, 2024 8:42pm Coronary artery disease chronic [facility] 2024 4:04am Acidosis, lactic resolved October 4:04am [...] October 30, 2024 2:11pm Essential hypertension chronic [facility] 2024 2:11pm H/O coronary artery bypass surgery May 30, 2008 chronic October 30, 2 025 2:11pm History of coronary artery stent placement January 02, 2015 chronic October 30, 2024 2:11pm MADELEINE (acute kidney injury) acute November 24, 2024 10:33pm Nausea & vomiting acute November 062024 10:33pm Pancreatitis acute November 24, 2024 10:33pm Uremia acute November 24 10:33pm [facility] Work Phone: 1(190) 639-621211-27-2024 History of Present illness Narrative* Daniel Galarza MD - 07/03/2024 12:00 PM EST COLORECTAL SURGERY VIRTUAL VISIT FOLLOW UP I have communicated my name and active licensure. The patient's identity and physical location wereverified at the time of this visit. Either the patient or their legal lead customer service representative has been informed of the [...] after this. His case was presented to [facility] who recommended ELMA followed by restaging and [...] ileostomy closure. 06/20/24 OV with Melanie Yang APRN.JUNIOR ANALYST Last office visit on 06/04/2024 History of [...] CEA and CT Abd/pel before reversal I Forest Galarza MD Risk of morbidity, mortality and/or complications of treatment plan: moderate I spent a total of 35 minutes on the date of the service which included preparing to see the patient and [id number] patient care. documented in this encounterMercy Health St[facility]11-27-2024 NoteHNO ID: [id number] Author: Daniel GALARZA MD Service: ? Author Type: Physician Type: Progress Notes Filed: 07/03/2024 15:25 Note Text: COLORECTAL SURGERY VIRTUAL VISIT FOLLOW UP I have communicated my name and active licensure. The patient's identity and physical location were verified at the time of this visit. Either the patient or their legal lead customer service representative has been informed of the [...] after this. His case was presented to [facility] who recommended ELMA followed by restaging and surgical intervention if needed. He completed ELMA on 02/24/2020. His case was presented to [facility] on 03/25/20, and it was recommended that [...] ileostomy closure. 06/20/24 OV with Melanie Yang APRN.JUNIOR ANALYST Last office visit on 06/04/2024 History of [...] in no acute distress (more content not included)...[facility]11-22-2024 Telephone encounter Note* Telephone Encounter - Flower Villanueva RN - 06/28/2024 2:24 PM EST [employer] spoke with pt regarding his upcoming visit with Dr Galarza on 07/03. Pt verbalized that he would like to discuss reversal surgery, but is not feeling well and does not know if he can make the hour drive. Appt changed to a virtual appt. [facility]11-22-2024 Miscellaneous Notes* Telephone Encounter - Flower Villanueva RN - 06/28/2024 2:24 PM EST [employer] spoke with pt regarding his upcoming visit with Dr Galarza on 07/03. Pt verbalized that he would like to discuss reversal surgery, but is not feeling well and does not know if he can make the hour drive. Appt changed to a virtual appt. documented in this encounterMer[facility]11[facility]2024 Telephone encounter Note * Telephone Encounter - Gregorio Villalobos RN - 06/27/2024 9:44 AM EST BMI SPECIALTY CARE COORDINATION TELEPHONE ENCOUNTER LVM with call back number after returning pts call [facility]11-21-2024 Miscellaneous Notes* Telephone Encounter - Gregorio Villalobos RN - 06/27/2024 9:44 AM EST BMI SPECIALTY CARE COORDINATION TELEPHONE ENCOUNTER LVM with call back number after returning pts call documented in this encounterMer[facility]11[facility]14[facility]2024 History of Present illness Narrative* Melanie Yang APRN.JUNIOR ANALYST - 06/20/2024 4:00 PM EST COLORECTAL SURGERY VIRTUAL VISIT FOLLOW UP I have communicated my name and active licensure. The patient's identity and physical location wereverified at the time of this visit. Either the patient or their legal lead customer service representative has been informed of the [...] morbidity, mortality and/or complications of treatment plan: elvie I spent a total of 18 minutes on the date of the service which included preparing to see the patient, lxka-sb-jogl patient care, completing clinical documentation, obtaining and/or reviewing separately obtained history, performing a medically appropriate examination, counseling and educating the pat ient/family/caregiver, and communicating results to the patient/family/caregiver. documented in this encounterMercy Health St. [facility]11-14-2024 NoteHNO ID: [id number] Author: MELANIE YANG APRN.ARTI Service: ? Author Type: Nurse Practitioner Type: Progress Notes Filed: 06/20/2024 16:08 Note Text: COLORECTAL SURGERY VIRTUAL VISIT FOLLOW UP I have communicated my name and active licensure. The patient's identity and physical location were verified at the time of this visit. Either the patient or their legal lead customer service representative has been informed of the [...] and reach out with any issues. Melanie Yang, FIRE SUPPORT MAN.JUNIOR ANALYST Risk of morbidity, mortality and/or complications of treatment plan: low I spent a total of 18 minutes on the date of the service which included preparing to see the patient, [id number]-ek-[id number] patient care, completing clinical documentation, obtaining and/or reviewing separately obtained history, performing a medically appropriate examination, counseling and educating the patient/family/caregiver, and communicating results to the patient/family/caregiver.[facility]11-05-2024 Telephone encounter Note* Telephone Encounter - Dionne [...] back if he misses their call. IR #[phone]. [facility]11-05-2024 Miscellaneous Notes* Telephone Encounter - Dionne [...] back if he misses their call. IR #[phone]. documented in this encounterMercy Health St. [facility]10-29-2024 Instructions* Patient Instructions* Citlali Mejía APRN.CNP - 06/04/2024 3:15 PM EDT Add Metamucil to daily regimen If output becomes too thick, decrease imodium Scheduled with Colorectal surgery Drink 2-4 oral rehydration solutions, ie: Drip Drop, or Liquid IV, follow the ORS guide provided. documented in this encounterMercy Health St. [facility]10-29-2024 History of Present illness Narrative* Citlali [...] Anxiety and depression CAD (coronary artery disease) [place] 2008 CVA (cerebral infarction) DM (diabetes mellitus) [...] of treatment plan: low Citlali Mejía APRN, CNP Colorectal Surgery Medical Decision Making: Problems: Moderate: [...] 06/04/2024 Time: 3:38 PM documented in this encounterMercy Health St. [facility]10-29-2024 NoteHNO ID: [id number] Author: MELANIE YANG APRN.CNP Service: ? Author [...] Anxiety and depression CAD (coronary artery disease) [place] 2008 CVA (cerebral infarction) DM (diabetes mellitus) [...] W/ANGIOPLASTY [facility] Right 07-01-15 REVWY OPN/PRG FEM/POP W/ANGIOPLASTY [facility] 08-14-15 REVWY OPN/PRQ TIB/DIANNA W/ANGIOPLASTY [facility] Right 07-01-15 REVWY OPN/PRQ TIB/DIANNA W/ANGIOPLASTY [facility] [...] tender. Stoma: End ileostom (more content not included)...[facility]10-29-2024 NoteHNO ID: [id number] Author: FOREST KIMBLE MD Service: ? Author Type: Physician Type: Progress Notes Filed: 06/12/2024 16:04 Note Text: GENERAL SURGERY ESTABLISHED PATIENT VISIT Date: June 04, 2024 Time: 1:53 PM Name: Isaias Vega Mr. Vega is here today for followup regarding ostomy Patient came home from alf in mid March. He weighed 110lbs upon [...] Anxiety and depression CAD (coronary artery disease) [place] 2008 CVA (cerebral infarction) DM (diabetes mellitus) [...] lb 10.2 oz) BMI (more content not included)...[facility]10-29-2024 History of Present illness Narrative* Forest Kimble MD - 06/04/2024 1:53 PM EDT GENERAL SURGERY ESTABLISHED PATIENT VISIT Date: June 04, 2024 Time: 1:53 PM Name: Isaias Vega Mr. Vega is here today for followup regarding ostomy Patient came home from alf in mid March. He weighed 110lbs upon getting home. Currently, he's 142. Patient is able to eat all foods: candy, fruits, sweets, meat, fish, dairy, cheese. Nothing he can't tolerate. No abdominal pain. Has acid reflux when he lays flat. No nausea. He would like to have ostomy reversed. estimates emptying bag around 6-7 times per day. [id number] ounces per day. Taking imodium around 6 [...] Anxiety and depression CAD (coronary artery disease) [place] 2008 CVA (cerebral infarction) DM (diabetes mellitus) [...] REPAIR HX PAST SURGICAL HISTORY OF 2009 [facility] PICC LINE INSERT/CONSULT 12/07/2023 REVSC OPN/PRG FEM/POP W/ANGIOPLASTY [facility] 07-01-15 REVSC OPN/PRG FEM/POP W/ANGIOPLASTY [facility] 08-14-15 REVSC OPN/PRQ TIB/DIANNA W/ANGIOPLASTY [facility] 07-01-15 REVSC OPN/PRQ TIB/DIANNA [facility] [...] 45min spent with patient documented in this encounterMercy Health St. [facility]10-25-2024 NoteHNO ID: [id number] Author: PEBBLES BARFIELD MD Service: ? Author Type: Physician Type: Progress Notes Filed: 05/31/2024 12:13 Note Text: [facility] UROLOGY CLINIC NOTE [...] Hx: 2 CVA with left-sided hemiplegia, diabetes, care home anticoag - Eliquis, colorectal cancer, ileostomy for [...] Anxiety and depression CAD (coronary artery disease) [place] 2008 CVA (cerebral infarction) DM (diabetes mellitus) [...] once daily. acetaminophen (T (more content not included)...[facility] 05-31-2024 History of Present illness Narrative* Pebbles Barfield MD - 05/31/2024 12:05 PM EDT Images from the original note were not included. [facility] UROLOGY CLINIC NOTE [...] Hx: 2 CVA with left-sided hemiplegia, diabetes, care home anticoag - Eliquis, colorectal cancer, ileostomy for [...] Anxiety and depression CAD (coronary artery disease) [place] 2008 CVA (cerebral infarction) DM (diabetes mellitus) [...] & oriented - Yes; documented in this encounterMercy Health St. [facility]10-25-2024 Nurse Note* Vishal Gonzalez RN - [...] Urethra. Once procedure completed a new 18 hungarian coulde catheter placed to gravity drainage. Catheter was secured to left leg with statlock Instruction sheet given and reviewed: Yes Patient verbalizes understanding: Yes Pain Ratin on a scale of 0 to 10. Specimens: not indicated. Nurse: Vishal Gonzalez RN [facility]10-25-2024 Nurse Note* Vishal Gonzalez RN - [...] Urethra. Once procedure completed a new 18 hungarian coulde catheter placed to gravity drainage. Catheter was secured to left leg with statlock Instruction sheet given and reviewed: Yes Patient verbalizes understanding: Yes Pain Ratin on a scale of 0 to 10. Specimens: not indicated. Nurse: Vishal Gonzalez RN documented in this encounterMercy Health St. [facility]10-25-2024 NoteHNO ID: [id number] Author: PEBBLES BARFIELD MD Service: ? Author Type: Physician Type: Procedures Filed: 05/31/2024 12:13 Note Text: [facility] Patient presents with urinary retention for cystoscopy. 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 Pebbles Barfield [facility]10-25-2024 Procedure note* Pebbles Barfield MD - 05/31/2024 10:17 AM EDT [facility] Patient presents with urinary retention for cystoscopy. 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 Pebbles Barfield MD [facility]10-25-2024 Procedure note* Pebbles Barfield MD - 05/31/2024 10:17 AM EDT [facility] Patient presents with urinary retention for cystoscopy. [facility] notes reviewed: 03/11/2024: NIKO Drew Past medical Hx: 2 CVA with left-sided hemiplegia, diabetes, care home anticoag - Eliquis, colorectal cancer, ileostomy for [...] patient: Yes Procedure confirmed with physician and computer support technician: Yes UNIVERSAL PROTOCOL / SAFETY CHECKLIST Procedure [...] catheter. Pebbles Barfield MD documented in this encounterMer[facility] [facility]2024 NoteHNO ID: [id number] Author: PEBBLES BARFIELD MD Service: ? Author [...] Recommend maintaining Mackenzie catheter, discuss conversion to [facility]PTK[facility]09-27-2024 NoteHNO ID: [id number] Author: AILYN WARREN RN Service: ? Author Type: Registered Nurse Type: Progress Notes Filed: 05/03/2024 17:23 Note Text: ET/WOCN Nursing Consult Topic: ET/WOCN Consultation Note ET Outcome: Pt came to see the [facility] nurse via wheel chair accompanied [...] per day per pt. Current pouching system: Full Throttle Indoor Kart Racing New Image 1 3/4 flat flange cut [...] End colostomy as non functional stoma at [facility]. Stoma was red and moist, budded. [...] 1 hour ANTHONY MarchN RN CWOCN The [facility] nursing pager [phone] (M-F 7a-4p, Sat, Sun, Holiday 7a-3p)[facility]09-27-2024 History of Present illness Narrative* Ailyn Warren, RASHI - 05/03/2024 4:51 PM EDT ET/WOCN Nursing Consult Topic: ET/WOCN Consultation Note ET Outcome: Pt came to see the [facility] nurse via wheel chair accompanied [...] per day per pt. Current pouching system: Breezy Point New Image 1 3/4 flat flange cut opening 1 1/8 size with a lot of paste, drainable pouch Current wearing time: 3 days, often has leakage Recommendations: Skin Care: stomahesive powder to irritated skin, No Sting Liquid Skin Barrier as option Pouching System: increased convexity. B[place]zy [place] New Image 2 1/4 convex flange cut to fit the stoma, paste, High Volume Output Pouch. Provided drainable pouch option. Wear Time: 3-4 days #2 pouch: End colostomy as non functional stoma at [facility]. Stoma was red and moist, budded. [...] 1 hour JIM March RN CWOCN The [facility] nursing pager [phone] (M-F 7a-4p, Sat, Sun, Holiday 7a-3p) * Ailyn Warren RN - 05/03/2024 1:25 PM EDT [facility] [place] [id number] Patient: Isaias Vega Patient Address: [address] [place] [address] [place] [address] Preferred Gender: male Date of : 1955 Type of Stoma: End Ileostomy Diagnosis: Rectal Cancer C20 OSTOMY SUPPLY ORDER FORM Pouch: Ranjana: New Image 2 Beige Lock 'n Roll, drainable pouch #67997 New Image 2 High Output Wide Bore #70586 30 day use - 2 Boxes (20 pouches) Wafer: B[place]zy [place]: New Image CeraPlus 2 / Convex, with tape # 63569 30 day use - 4 Boxes (20 flanges) Adhesive Removers: ConvaTec Esenta Wipes #651489 30 day use - 1 Box Belt: Ranjana Medium # 7300 30 day use - 2 belts [facility]. Accessories: Mefix Tape 2 # 846854 30 day use - As Needed Paste: ConvaTec Stomahesive # 252766 30 day use - 2 Tubes Powder: ConvaTec Stomahesive # 49536 30 day use - 1 Bottle Skin Sealant: 3M No Sting, 30/Box # 3344 30 day use - As Needed Other: Molnlycke Mepore dressing 3 3/5 x 4 #044483 50/Box 30 day use - 1 Box [place] large bore drainage bag #5551 30 day use - 2 Bags as needed. Refills: 11 Attending Physician: Dr. Galarza For immediate authorization, please contact the physician s office. [facility] Nurse: JIM Melchor, CWOCN Note: SIGNATURE: Ailyn Gabriel RN PATIENT NAME: Isaias Vega DATE: May 03, 2024 TIME: 1:26 PM CONTACT #: [phone] documented in this encounterMer[facility] Health St. [facility]09-27-2024 NoteHNO ID: [id number] Author: AILYN WARREN RN Service: ? Author Type: Registered Nurse Type: Progress Notes Filed: 05/03/2024 13:34 Note Text: The [address] [address] Patient: Isaias Vega Patient Address: [address] [place] [address] [place] [address] Preferred Gender: male Date of : 1955 Type of Stoma: End Ileostomy Diagnosis: Rectal Cancer C20 OSTOMY SUPPLY ORDER FORM Pouch: [place]: New Image 2 ? Beige Lock 'n Roll, drainable pouch #98992 New Image 2 ? High Output Wide Bore #45615 30 day use - 2 Boxes (20 pouches) Wafer: Ranjana: New Image CeraPlus 2 1/4 Convex, with tape # 48661 30 day use - 4 Boxes (20 flanges) Adhesive Removers: ConvaTec Esenta Wipes #746109 30 day use - 1 Box Belt: [place] Medium # 7300 30 day use - 2 belts [facility]. Accessories: Mefix Tape 2 # 313234 30 day use - As Needed Paste: ConvaTec Stomahesive # 333315 30 day use - 2 Tubes Powder: ConvaTec Stomahesive # 79955 30 day use - 1 Bottle Skin Sealant: 3M No Sting, 30/Box # 3344 30 day use - As Needed Other: Molnlycke Mepore dressing 3 3/5 x 4 #353695 50/Box 30 day use - 1 Box Ranjana large bore drainage bag #5551 30 day use - 2 Bags as needed. Refills: 11 Attending Physician: Dr. Galarza For immediate authorization, please contact the physician?s office. [facility] Nurse: JIM Melchor, CWOCN Note: SIGNATURE: Ailyn Gabirel RN PATIENT NAME: Isaias Vega DATE: May 03, 2024 TIME: 1:26 PM CONTACT #: [phone] Health [facility]09-26-2024 Nurse Note* Rosy Bautista RN - 05/02/2024 9:29 AM EDT [facility] URODYNAMICS LAB URODYNAMIC [...] allergy: No Females- Is patient : No Trousseau Consultant offered: Patient declines B/O UA: Not completed [...] Pt states an understanding of instructions given. [facility]09-26-2024 Nurse Note* Rosy Bautista RN - 05/02/2024 9:29 AM EDT [facility] URODYNAMICS LAB URODYNAMIC [...] allergy: No Females- Is patient : No Trousseau Consultant offered: Patient declines B/O UA: Not completed [...] understanding of instructions given. documented in this encounterMercy Health St. [facility]09-06-2024 Telephone encounter Note * Telephone Encounter - Kenzie Drew APRN.CNP, DNP - 04/12/2024 4:54 PM EDT Thank Pebbles. Have a great weekend! Niko [facility]09-06-2024 Miscellaneous Notes* Telephone Encounter - Kenzie Drew APRN.CNP, DNP - 04/12/2024 4:54 PM EDT Thank Pebbles. Have a great weekend! Niko * Telephone Encounter - Pebbles Barfield MD - 04/12/2024 3:32 PM EDT Patient was supposed to have UDS at [facility], but catheter was malpositioned and he had a UTI, so they replaced his catheter, sent a culture and deferred the UDS. Urine culture came back, so I called in Keflex for him to take for 10 days. Also needs to reschedule his UDS (needs to be at [facility] due to need for Tricia lift). We can also reschedule his visit with me until after his UDS. documented in this encounterMercy Health St. [facility]09-06-2024 Telephone encounter Note * Telephone Encounter - Pebbles Barfield MD - 04/12/2024 3:32 PM EDT Patient was supposed to have UDS at [facility], but catheter was malpositioned and he had a UTI, so they replaced his catheter, sent a culture and deferred the UDS. Urine culture came back, so I called in Keflex for him to take for 10 days. Also needs to reschedule his UDS (needs to be at [facility] due to need for Tricia lift). We can also reschedule his visit with me until after his UDS. [facility]09-04-2024 Note* Addendum Note - Iwona Taylor RN - 04/10/2024 10:39 AM EDTAddended by: IWONA TAYLOR on: 04/10/2024 10:39 AM Modules accepted: Orders [facility]09-04-2024 Miscellaneous Notes* Addendum Note - Iwona Taylor RN - 04/10/2024 10:39 AM EDTAddended by: IWONA TAYLOR on: 04/10/2024 10:39 AM Modules accepted: Orders documented in this encounterMercy Health St. [facility]09-04-2024 Nurse Note* Iwona Taylor RN - 04/10/2024 9:33 AM EDT [facility] URODYNAMICS LAB URODYNAMIC PROCEDURE NOTE ID Verified [...] NONE Latex allergy: No Iodine allergy: No Trousseau Consultant offered:Patient declines B/O UA: Yes, Positive for [...] latex and cancel UDS. Dr. Barfield notified. [facility]09-04-2024 Nurse Note* Iwona Taylor RN - 04/10/2024 9:33 AM EDT [facility] URODYNAMICS LAB URODYNAMIC PROCEDURE NOTE ID Verified [...] NONE Latex allergy: No Iodine allergy: No Trousseau Consultant offered:Patient declines B/O UA: Yes, Positive for [...] UDS. Dr. Barfield notified. documented in this encounterMercy Health St. [facility]08-05-2024 Instructions* Patient Instructions* Kenzie Drew APRN.JUNIOR ANALYST, [facility] - 03/11/2024 10:04 AM EDT Follow up [...] Kenzie Drew APRN.LORRIE [facility]I documented in this encounterMercy Health St. [facility]08-05-2024 History of Present illness Narrative* Kenzie Drew APRN.LORRIE CHI - 03/11/2024 9:00 AM EDT [facility] MALE PATIENT - HISTORY AND PHYSICAL EXAMINATION PATIENT: Isaias Vega (68 year old) 03/11/2024 PCP: Kendy Modi MD CHIEF COMPLAINT: LUTS HISTORY OF PRESENT ILLNESS: 68 year old year old male with LUTS. 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 --END OF FINDING-- Supervisor Photocomposition: NUVIA Transcribe Date/Time: Dec 18 2023 11:19A Dictated by : JOE TAYLOR DO This examination was interpreted and the report reviewed and electronically signed by: OLIVER GUEVARA DO on Dec 18 2023 12:06PM EST CT ABD/PEL W IVCON Result Date: 12/12/2023 IMPRESSION: Interval ileocecectomy, as described, with new complex pelvic collection possibly representing a combination of hemostatic material and abscess. Small bowel ileus. Supervisor Photocomposition: NUVIA Transcribe Date/Time: Dec 12 2023 1:09P [...] then Cysto. Plan: Cont Flomax UDS at [facility] - will need a lift due to [...] Kenzie Drew DNP, ARTI Department of Urology [facility] documented in this encounterMercy Health St. [facility]08-05-2024 NoteHNO ID: [id number] Author: KENZIE DREW APRN.ARTI, LORRIE Service: ? Author Type: Nurse Practitioner Type: Progress Notes Filed: 03/12/2024 11:03 Note Text: [facility] MALE PATIENT - HISTORY AND PHYSICAL EXAMINATION PATIENT: Isaias Vega (68 year old) 03/11/2024 PCP: Kendy Modi MD CHIEF COMPLAINT: LUTS HISTORY OF PRESENT ILLNESS: 68 year old year old male with LUTS. Past medical Hx: 2 CVA with left-sided hemiplegia, diabetes, care home anticoag - Eliquis, colorectal cancer, ileostomy for [...] No date: CAD (coronary artery disease) Comment: [place] 2008 No date: CVA (cerebral infarction) No [...] KETONE UA (POCT) Negative (more content not included)...[facility]06-26-[facility] Telephone encounter Note* Telephone Encounter - Gregorio Villalobos RN - 01/31/2024 2:36 PM EDT [facility] SPECIAL[facility]ARE COORDINATION TELEPHONE ENCOUNTER Spoke to nurse practitioner regarding in person vs virtual follow up visit. From a surgical standpoint and wound check the pt can do a virtual visit per Dr. Kimble. [facility]06-26-2024 Miscellaneous Notes* Telephone Encounter - Gregorio Villalobos RN - 01/31/2024 2:36 PM EDT [facility] SPECIALTY CARE COORDINATION TELEPHONE ENCOUNTER Spoke to nurse practitioner regarding in person vs virtual follow up visit. From a surgical standpoint and wound check the pt can do a virtual visit per Dr. Kimble. documented in this encounterMercy Health St. [facility]05-30-2024 History of Present illness Narrative* Artur Adm Asst Carmelita Sanchez - 01/04/2024 9:52 AM EDT [place] copat stop date No follow up needed documented in this encounterMercy Health St. [facility]05-24-2024 History of Present illness Narrative* Drew Montemayor MD - 12/29/2023 10:21 AM EDT Images from the original note were not included. [facility] Outpatient Parenteral Antimicrobial Therapy (OPAT) Start Form Patient Info Patient MRN Patient Name Address Date of [id number] Isaias Vega [address] [place] [address] 1955 Start Date 12/29/2023 Physician Group Cc_main [...] No Follow Up Provider Monitoring Treatment Course Drew Montemayor MD Address [address] [place] [address] Prescribing Provider's signature - electronically signed by Drew Montemayor MD on 12/29/23 at 10:25 AM documented in this encounterMercy Health St. [facility]04-27-2024 Discharge summary Author Roberto Lockhart [facility] December 01, 2023 10:00pm Note Date/Time December 01, 2023 5:1 8pm [facility] Medical Records Department [address] [place] [address] Emergency Department Summary 12/01/23 MR#: [id number] Acct: [id number] Name: YONY VEGA Rep #:[id number] : [...] ileostomy for 3 years presenting to the [facility] part with right lower quadrant abdominal pain. Patient was seen here for mechanical fall diagnosed with hip contusion on November 29, 2023. Patient does have some bruising looks old to the right lower abdomen where he states he is hurting. Denies any fever chills nausea or vomiting. He is currently at a rehab facility. He denies any blood in his stoma. [facility] <SHUBHAM Villa - Last Filed: 12/01/23 21:08> [facility] Medical History Anxiety disorder Arthritis Atherosclerosis of [...] hearing Non-smoker Obstructive sleep apnea Orthostatic hypotension LAEJANDRO (obstructive sleep apnea) Peripheral vascular occlusive disease [...] Method Room Air Room Air Room Air ROBERT <SHUBHAM Villa - Last Filed: 12/01/23 21:08> [facility] Lab Data Labs: Laboratory Results - last 24 hr 12/01/23 12/01/23 17:00 18:30 WBC 15.8 H RBC 3.51 L Hgb 9.8 L Hct 30.6 L MCV 87.2 MCH 27.9 MCHC 32.0 RDW Std Deviation 50.8 H RDW Coeff of Maia 15.9 H Plt Count 350 MPV 10.5 Immature Gran % (Auto) 0.500 Neut % (Auto) 87.6 H Lymph % (Auto) 4.7 L Pacific % (Auto) 6.8 Eos % (Auto) 0.1 [...] Clarity Clear Urine pH 5.0 Ur Specific [place] 1.010 Urine Protein 15 H Urine Glucose [...] 1446 / Tel , Service support , ADDENDUM: 12/01/23 1983 IMPRESSION: 1. Moderate to high-grade small bowel obstruction, possibly due to adhesions. 2. Cholelithiasis. 3. Hepatic steatosis. N.B. : Dwayne Marshall NP, confirmed on 12/01/2023 18:56:12 (ET) that the referring physician received the results and does not require a verbal communication. Electronically Signed: Alta Lemus MD at 18:41 EDT , KUB X-Ray 12/01/23 19:50 IMPRESSION: NG [...] placed in 2016 by a physician in [facility]. I will reach out to surgery. I did speak with surgery, the patient is slightly complicated secondary to beingon multiple blood thinners, there is concern because of the recent surgery from a carotid artery stent the patient could have difficulty bleeding during surgery. It was surgery's recommendation to try and transfer to [facility] where he received a ileostomy. Patient will have a NG tube placed. I was able to speak with Dr. Chin, general surgery at [facility] she will accept the patient. Patient was given NG tube, all CT images and x-ray images will be transported with the patient. Patient made aware that he will be transferred. Currently waiting on a bed for transport. Patient remains stable, <Dr. Roberto Lockhart, DO - Last Filed: 12/01/23 22:00> [facility] Lab Data Labs: Laboratory Results - last 24 hr 12/01/23 12/01/23 17:00 18:30 WBC 15.8 H RBC 3.51 L Hgb 9.8 L Hct 30.6 L MCV 87.2 MCH 27.9 MCHC 32.0 RDW Std Deviation 50.8 H RDW Coeff of Maia 15.9 H Plt Count 350 MPV 10.5 Immature Gran % (Auto) 0.500 Neut % (Auto) 87.6 H Lymph % (Auto) 4.7 L Pacific % (Auto) 6.8 Eos % (Auto) 0.1 [...] Clarity Clear Urine pH 5.0 Ur Specific [place] 1.010 Urine Protein 15 H Urine Glucose [...] 18:41 EDT [place] Location ID and State: [id number] / Tel , Service support , ADDENDUM: [...] placed in 2016 by a physician in [facility]. I will reach out to surgery. I did speak with surgery, the patient is slightly complicated secondary to beingon multiple blood thinners, there is concern because of the recent surgery from a carotid artery stent the patient could have difficulty bleeding during surgery. It was surgery's recommendation to try and transfer to [facility] where he received a ileostomy. Patient will have a NG tube placed. I was able to speak with Dr. Chin, general surgery at [facility] she will accept the patient. Patient [...] 81 mg PO DAILY Patient Comments: heart [facility] omeprazole 40 MG capsule,delayed release(DR/EC) 40 mg [...] your Primary Care Provider. Call [facility] ([phone]) or report to the closest Emergency Room. Call 911 if necessary. 12/01/232199 <Electronically signed by Roberto Lockhart DO> Cosigner Signature (if applicable): 12/01/232156 <Electronically signed by Dwayne JALLOH> CC: Dr. Kendy Modi MD ~ Signed [facility] Work Phone: 1(585) 264-385304-23-2024 Hospital course Narrative* Jaleel Barthjosé Rosalba, FIRE SUPPORT MAN-JUNIOR ANALYST - 11/28/2023 11:14 AM EDT Discharge Summary Name: Yony Vega Age: 68 y.o. Birthday: 1955 Admit Date: 11/12/2023 2:26 AM Discharge Date: 11/28/23 Discharge Time: 11:14 AM Discharge Unit: [facility] Admission Information Admitting Physician: Joselito Mora MD [...] tolerated the procedure well. Patient admitted to [facility] post operatively for frequent neurovascular checks and close hemodynamic monitoring. Patient's hospital course was complicated by Paroxysmal Atrial Fibrillation, right neck hematoma, NSTEMI, acute hypoxic respiratory failure, and TIA Paroxysmal Atrial Fibrillation: Noted on telemetry review. [id number] 6. Cardiology recommended titration of betablocker, anticoagulation, [...] 01/16/24. Patient to follow up with established spring tacker in 3-4 weeks with outpatient mobile cardiac [...] REFERRAL TO CARDIOVASCULAR MEDICINE AMB REFERRAL TO [facility] DIET CARB CONTROLLED - 60 Grams [...] Start taking on: December 18, 2023 [place] 32G X [address] [facility] Use new needle for each insulin injection. [...] 351-400 = 10 units Commonly known as: HUMALOG What changed: How you take your medication [...] 27, 2023 8:23 PM Ergocalciferol 1.25 MG (96174 UT) CAPS Take 1 capsule by mouth [...] you take each medicine. Include all prescription yygifii-ned-uujqonf medicines, vitamins, and supplements. Keep this list [...] plan your refills so that you can hop picker all your medicines at the same time. This can mean fewer trips to the drugstore. If we have prescribed you a new medication during your stay, please contact with your primary physician for refills Follow-up: MD Mahad [address] [place] [facility] [phone] Schedule an appointment as soon as possible for a visit in 2 week(s) Acute coronary transition of care Please phone [phone] to schedule this video/phone visit to review your medications with a pharmacist. Follow up [address] [place] [address] Upcoming Appointments (up to five)-Some appointments for Medical Center outpatient clinics or diagnostic testing locations are not displayed below Provider Department Dept Phone 12/01/2023 9:00 AM Kady Kim[facility] Telehealth Pre Procedure Preparation Arrive at: THIS IS A TELEPHONE VISIT, DO NOT GO TO THE CLINIC. [phone] 12/18/2023 2:30 PM [facility], [facility] Vascular Surgery Outpatient [facility] [place] Arrive at: Arrive to 1st Floor Registration Desk [phone] 12/18/2023 3:45 PM [place] [facility] [place] Arrive at: Arrive to 1st Floor Registration Desk [phone] 01/10/2024 8:30 AM Angeli Zarate General and Gastrointestinal Surgery Outpatient [facility] [place] Arrive at: Arrive to 1st Floor Registration [phone] 01/16/2024 4:00 PM Schuylre Marcelino [facility] [phone] documented in this encounterKettering Health [facility]04-23-2024 History of Present illness Narrative* SHAUN Potter - 11/28/2023 10:35 AM EDT Care Management Discharge Note Selected Continued Care - Admitted Since 11/12/2023 Destination Coordination complete. Service Provider Selected Services Address Phone Fax Patient Preferred [facility] Intermediate [address] [place] [address] -- -- Transport Request Mode of Transfer: BLS Name of Discharge Transport Company: [employer] Discharge Transport ETA: 11/27 @ 1400 Patient medically stable for discharge per physician/medical team. Patient/Solar Installation Manager remain inagreement with the discharge plan. Phyllis KHAN, TOW CAR DRIVER Flight Control Manager * SHAUN Potter - 11/27/2023 1:44 PM EDT Placement Plan Expected Discharge Date: 11/29/2023 Referred Level of Care: assisted facility Barriers: none Current Referrals and Status 1. [facility]: reserved SW received message that patient's Medicare A&B is his primary and does not need a precert. SW informed medical team and scheduled transport for 1400 on 11/27. Phyllis KHAN, SHAUN Flight Control Manager * SHAUN Potter - 11/27/2023 1:29 PM EDT 11/27/23 1329 Outlier Review Reviewing for: Outlier Meeting Medical Necessity: Yes Medical Necessity Summary: repeat TTE, starting anti-coagulation, snf precert Barriers: Standard Treatment/Therapy Barrier(s) Comments: SNF precert Intervention: No intervention needed Escalated to: None Required SAHUN Patel Flight Control Manager * Nito Ordoñez OT - 11/27/2023 11:51 AM EDT Acute Occupational Therapy Treatment Prior to Admission AM-PAC Score: PRIOR LEVEL AM-PAC Activity Raw Score: 24 PRIOR LEVEL AM-PAC Mobility Raw Score: 24 Current AM-PAC score(s): CURRENT AM-PAC Activity Raw Score: 17 Based on the above AM-PAC score(s), and OT clinical judgment, discharge destination recommendation is: Intermediate Facility Barriers to discharge home: Patient needs [...] Edema: Mobility Assessment/Intervention: Supine to Sit Mobility [place] Level: Supine->Sit: contact guard assist Bed Features/Set-up: Supine->Sit: Head of bed elevated, Use of bed rail Skilled Rationale: Verbal cues, Upright gaze/neck extension, Technique of activity, Initiation and execution of task Sit to Supine Mobility [place] Level: Sit->Supine: contact guard assist Bed Features/Set-up: Sit->Supine: Flat Skilled Rationale: Verbal cues, Technique of activity, Initiation and execution of task Skilled Intervention/Details: Sit->Supine: verbal cues for log roll technique Transfer Assessment/Intervention: Sit to Stand Transfer [place] Level: Sit->Stand: contact guard assist Assistive Device: Sit->Stand: 2 wheeled walker Skilled Rationale: Verbal cues, Upright gaze/neck extension, Technique of activity, Initiation and execution of task, Full extension to upright positioning/posture Stand to Sit Transfer [place] Level: Stand->Sit: contact guard assist Assistive Device: Stand->Sit: 2 wheeled walker, armed chair Skilled Rationale: Verbal cues, Controlled descent for sitting, Technique of activity Functional Mobility: Functional Mobility [place] Level: Functional Mobility/Gait: contact guard assist Assistive Device: Functional Mobility/Gait: 2 wheeled walker Functional Mobility Distance: Distance needed to access restroom Ambulation Distance (Feet): 30 Functional Mobility Deficits: Activity tolerance, Balance, Generalized weakness Functional Mobility Skilled Rationale: Verbal cues, Technique of activity, Cues for increased safety Skilled Intervention/Details - Functional Mobility/Gait: to/from restroom Outcome Score(s): CURRENT [facility] Daily Activity Inpatient Short Form Putting on/Taking Off Lower Body Clothin - A Lot of Assistance Bathin - A Lot of Assistance Toiletin - A Little Assistance Putting on/Taking Off Upper Body Clothin - A Little Assistance Groomin - A Little Assistance Eatin - No Assistance CURRENT [facility] Activity Raw Score: 17 CURRENT [facility] Activity Functional Limitation/Modifier: 50.11% Currently Impaired in [...] current Occupational Therapy Discharge Summary. * Isamar Guzman APRN-JUNIOR ANALYST - 11/27/2023 9:27 AM EDTSummary: Consult Sign Off [facility] Inpatient Diabetes Consults - Progress Note- [...] to discharge for final recs. For provider front maker, please use QGENDA : TEAM 2 Clinical [...] FixedvsFlexible: Fixed: U100 Lispro Pens with Pen [place] MAX DAILY DOSE TBD 14 Units for [...] 3. Follow up needed: Does not need [facility] Endocrinology appt PCP after discharge from facility 4. Education: Not seen 5. Will review glucoses and discuss with Dr Harris as needed Thank you for allowing us to participate in your patient's care. For provider front maker: MAXIMINO : TEAM 2 CC: hyperglycemia History [...] He was interviewed at his bedside in [place]. Per review of his chart and discussion [...] Acute Physical Therapy Treatment Prior to Admission [facility] score(s): PRIOR LEVEL AM-PAC Mobility Raw Score: 24 PRIOR LEVEL AM-PAC Activity Raw Score: 24 Current AM-PAC score(s): CURRENT AM-PAC Mobility Raw Score: 14 Based on the above AM-PAC score(s) and PT clinical judgment, patient is a good candidate for discharge to Intermediate Facility Barriers to discharge home: Lack of [...] section. Mobility Assessment/Intervention: Supine to Sit Mobility [place] Level: Supine->Sit: minimum assist (75% patient effort) Bed Features/Set-up: Supine->Sit: Head of bed elevated, Use of bed rail Skilled Rationale: Hand placement, Verbal cues, Positioning, Sequencing, Technique of activity Skilled Intervention/Details: Supine->Sit: patient required cues for improved sequencing and hand placement to increase independence in task Sit to Supine Mobility [place] Level: Sit->Supine: moderate assist (50% patient effort) Bed Features/Set-up: Sit->Supine: Flat Skilled Rationale: Positioning, Sequencing, Verbal cues, Technique of activity, Cues for increased safety Skilled Intervention/Details: Sit->Supine: cues for improved positioning and sequencing for safety. Outcome Score(s): CURRENT [facility] Basic Mobility Inpatient Short Form Turning over [...] with a railin - Total Assistance CURRENT [facility] Mobility Raw Score: 14 CURRENT [facility] Mobility Functional Limitation: 61.29% Impaired in Basic [...] [place]. S/p TCAR (11/15) complicated by NSTEMI ([facility] 11/19, neck hematoma, and right brain [...] ASA and statin as above - sp [facility] 11/19 without intervention Paroxymal Atrial Fibrillation - Coreg as above - [id number] at 6 - On therapeutic anticoagulation at [...] Jimenez MD 11/27/2023 Vascular Surgery * Isamar Guzman, FIRE SUPPORT MAN-JUNIOR ANALYST - 11/26/2023 11:48 AM EDT [facility] Inpatient Diabetes Consults - Progress Note- [...] FixedvsFlexible: Fixed: U100 Lispro Pens with Pen [place] MAX DAILY DOSE TBD TBD Units for [...] 3. Follow up needed: Does not need [facility] Endocrinology appt PCP after discharge from facility 4. Education: Discussed daily plan today 5. Will review glucoses and discuss with Dr Harris as needed Thank you for allowing us to participate in your patient's care. For provider front maker: MAXIMINO : TEAM 2 CC: hyperglycemia History [...] and he called out for insulin and TRUCK MECHANIC APPRENTICE recorded his carbs that I counted on [...] acute abnormalities noted Neurological: Alert and interactive; INAJA Psych: Cooperative Temp: [97.7 F (36.5 C)-98.7 [...] He was interviewed at his bedside in [place]. Per review of his chart and discussion [...] Current Referrals and Status 1. Pt. Selected [facility]. SW reserved provider. BILL Shah, ANTWON-S IRP SW Please note that I am an IRP hospital social worker and am not the primary hospital social worker for this service and/or patient. Please contact primary hospital social worker during the week for any additional needs. Contact info for weekend CM and SW staff (8:00am - 4:30pm): Brain and Spine: CCM: [phone] / Professor Of Chemical Engineering: [phone] Stearns: CCM: [phone] / Professor Of Chemical Engineering: [phone] Ha: CCM : [phone] / Professor Of Chemical Engineering: [phone] Darin/MICU/PCU Joselito: CCM: [phone] / Professor Of Chemical Engineering: [phone] * Blanca Jimenez MD - 11/26/2023 8:52 AM EDT Physician Attestation: I Ralph Easley personally examined this patient and agree with the assessment above. Right neck hematoma improving after TCAR and recovering from [facility]. Dispo planning VASCULAR SURGERY PROGRESS NOTE HPI: [...] [place]. S/p TCAR (11/15) complicated by NSTEMI ([facility] 11/19, neck hematoma, and right brain [...] - ASA and statin as above - [facility] 11/19 without intervention Paroxymal Atrial Fibrillation - Coreg as above - [id number] at 6 - On therapeutic anticoagulation at [...] 11/26/2023 Vascular Surgery, PGY-3 [phone] * Isamar Valdovinos Megan, FIRE SUPPORT MAN-JUNIOR ANALYST - 11/25/2023 11:00 AM EDT [facility] Inpatient Diabetes Consults - Progress Note- [...] FixedvsFlexible: Fixed: U100 Lispro Pens with Pen [place] MAX DAILY DOSE TBD TBD Units for [...] 1-2 weeks in [facility] Post[facility]Discharge Clinic at [facility] (12th floor). To schedule this appt call the [facility] at [phone] Option #3. 4. Education: Discussed daily plan today 5. Will review glucoses and discuss with Dr Harris as needed Thank you for allowing us to participate in your patient's care. For provider front maker: MAXIMINO : TEAM 2 CC: hyperglycemia History [...] acute abnormalities noted Neurological: Alert and interactive; INAJA Psych: Cooperative Temp: [97.7 F (36.5 C)-98.4 [...] He was interviewed at his bedside in [place]. Per review of his chart and discussion [...] stroke and is s/p TCAR on 11/16/19 In regard to his history of diabetes [...] cert, transportation Current Referrals and Status 1. [facility]; Accepted 2. [facility]; [...] continue to follow for discharge planning. Abigail Payne, CHIEF PORT DIRECTOR, TOW CAR DRIVER IRP Professor Of Chemical Engineering Please note that I am a float SW and may not be covering the same unit each day. Please reach out to the floor/unit SW for additional needs/concerns. Contact info for weekend CM and SW staff (8:00am - 4:30pm): Brain and Spine: CCM: / Professor Of Chemical Engineering: Stearns: CCM: / Professor Of Chemical Engineering: Ha: CCM : / Professor Of Chemical Engineering: Darin/MICU/PCU Joselito: CCM: / Professor Of Chemical Engineering: * Blanca Jimenez MD - 11/25/2023 8:03 [...] shifts: In: 140.4 [P.O.:100; IV Piggyback:40.4] Out: 2225 [Urine:2024] Wt Readings from Last 3 Encounters: [...] in RT DP/PT Labs: WBC/Hgb/Hct/Plts: 6.76/9.8/31.2/285 (11/24 0002) Na/K+/Phos/Mg/Ca: 137/4.1/--/2.1/-- (11/24 0002) Bun/Creat/Cl/CO2/Glucose: 20/0.91/101/24/224 (11/24 0002) Imaging: no new imaging this morning - [...] ASA and statin as above - sp [facility] 11/19 without intervention Paroxymal Atrial Fibrillation - Coreg as above - [id number] at 6 - On therapeutic anticoagulation at [...] once pre-cert obtained. JIM Rivera, RN Clinical Mr Teacher * Paris Gonzalez MD - 11/24/2023 10:59 [...] OT clinical judgment, discharge destination recommendation is: Intermediate Facility Barriers to discharge home: Patient needs [...] Edema: Mobility Assessment/Intervention: Sit to Supine Mobility [place] Level: Sit->Supine: minimum assist (75% patient effort) Bed Features/Set-up: Sit->Supine: Flat Skilled Rationale: Verbal cues, Technique of activity, Initiation and execution of task Transfer Assessment/Intervention: Sit to Stand Transfer [place] Level: Sit->Stand: minimum assist (75% patient effort) [...] assist x 1 Stand to Sit Transfer [place] Level: Stand->Sit: minimum assist (75% patient effort) Physical Assist: Stand->Sit: 2 person assist Assistive Device: Stand->Sit: 2 wheeled walker, armed chair Skilled Rationale: Verbal cues, Controlled descent for sitting, Technique of activity, Cues for increased safety Functional Mobility: Functional Mobility [place] Level: Functional Mobility/Gait: minimum assist (75% patient [...] a decrease in balance. Outcome Score(s): CURRENT AM-PAC Daily Activity Inpatient Short Form Putting on/Taking Off Lower Body Clothin - A Lot of Assistance Bathin - A Lot of Assistance Toiletin - A Little Assistance Putting on/Taking Off Upper Body Clothin - A Little Assistance Groomin - A Little Assistance Eatin - No Assistance CURRENT AM-PAC Activity Raw Score: 17 CURRENT AM-PAC Activity Functional Limitation/Modifier: 50.11% Currently Impaired in [...] focus: transfer, endurance Non-billable assistance during session: Dra S/PT PPE used during patient interaction: gloves, [...] Na/K+/Phos/Mg/Ca: 135/4.3/--/1.9/-- (11/23 14) Bun/Creat/Cl/CO2/Glucose: 24/0.89/93/32/212 (11/23 14-11/23 900) Imaging: no new imaging this morning - [...] ASA and statin as above - sp [facility] 11/19 without intervention Paroxymal Atrial Fibrillation - Coreg as above - [id number] at 6 - On therapeutic anticoagulation at [...] 11/24/2023 Vascular Surgery, PGY-3 [phone] * Johny Gera - 11/24/2023 9:43 AM EDT Acute Physical Therapy Treatment Prior to Admission [facility] score(s): PRIOR LEVEL AM-PAC Mobility Raw Score: 24 PRIOR LEVEL AM-PAC Activity Raw Score: 24 Current AM-PAC score(s): CURRENT AM-PAC Mobility Raw Score: 17 Based on the above AM-PAC score(s) and PT clinical judgment, patient is a good candidate for discharge to Intermediate Facility Pt is a very high fall [...] balance Mobility Assessment/Intervention: Sit to Supine Mobility [place] Level: Sit->Supine: minimum assist (75% patient effort) [...] guidance Transfer Assessment/Intervention: Sit to Stand Transfer [place] Level: Sit->Stand: minimum assist (75% patient effort) [...] and controlled movements Stand to Sit Transfer [place] Level: Stand->Sit: minimum assist (75% patient effort) [...] controlled movement Gait/Functional Mobility Assessment/Intervention: Gait Assessment [place] Level: Gait: minimum assist (75% patient effort) [...] long-term impaired peripheral vision. Outcome Score(s): CURRENT [facility] Basic Mobility Inpatient Short Form Turning over in bed: 4 - No Assistance Moving from lying on back to sittin - A Little Assistance Moving to and from bed to chair: 3 - A Little Assistance Sitting/standing from chair: 3 - A Little Assistance Walk in hospital room: 3 - A Little Assistance Climbing 3-5 steps with a railin - Total Assistance CURRENT [facility] Mobility Raw Score: 17 CURRENT [facility] Mobility Functional Limitation: 50.57% Impaired in Basic [...] Problem: PT - Outcome Measure Goals Goal: [facility] - Patient will demonstrate an improvement in AM-PAC Inpatient Mobility Short Form of atleast 4.5 points (MDC), in order to demonstrate an improvement in functional mobility. Outcome: Progressing PT treatment consisted of the following to progress towards the above goal(s): PT Evaluation and Treatment Time Therapeutic Activity Time Entry: 25 Gait Training Time Entry: 13 Treating Therapist: Johny oBss Additional Details: PT Co-Eval/Treatment Information Co-evaluation/co-treatment performed?: [...] RN aware Needs in reach. Time In: 0943 Time Out: 1021 Total Visit Time: 38 [...] skilled clinical decisions and judgements. * Isamar Guzman, FIRE SUPPORT MAN-JUNIOR ANALYST - 11/24/2023 9:30 AM EDT [facility] Inpatient Diabetes Consults - Progress Note- [...] FixedvsFlexible: Fixed: U100 Lispro Pens with Pen [place] MAX DAILY DOSE TBD TBD Units for [...] 1-2 weeks in DM Post-Discharge Clinic at [facility] (12th floor). To schedule this appt call the [facility] at [phone] Option #3. 4. Education: Discussed daily plan today 5. Will review glucoses and discuss with Dr Harris as needed Thank you for allowing us to participate in your patient's care. For provider front maker: MAXIMINO : TEAM 2 CC: hyperglycemia History [...] acute abnormalities noted Neurological: Alert and interactive; INAJA Psych: Cooperative Temp: [95.5 F (35.3 C)-98.5 [...] He was interviewed at his bedside in [place]. Per review of his chart and discussion [...] Expected Discharge Date: Referred Level of Care: assisted facility Barriers: patient choice, insurance precert Current Referrals and Status 1. [facility]: accepted 2. [facility]: accepted SW provided assisted facility choices at the bedside. Patient stated that his spouse would be arriving later and would be the one picking which assisted facility he will discharge to. SW will return later for choice. Addendum @ 3:18PM: SW attempted to get patient choice from patient and spouse however patient was receiving care from medical team. Phyllis KHAN, TOW CAR DRIVER Flight Control Manager * Dorothy Misti Cary, FIRE SUPPORT MAN-JUNIOR ANALYST - 11/23/2023 9:57 AM EDT [facility] Inpatient Diabetes Consults - Progress Note- [...] FixedvsFlexible: Fixed: U100 Lispro Pens with Pen [place] MAX DAILY DOSE TBD TBD Units for [...] 1-2 weeks in DM Post-Discharge Clinic at [facility] (12th floor). To schedule this appt call the [facility] at [phone] Option #3. 4. Education: NA today 5. Will review glucoses and discuss with Dr Harris as needed Thank you for allowing us to participate in your patient's care. For provider front maker: MAXIMINO : TEAM 2 CC: hyperglycemia History [...] acute abnormalities noted Neurological: Alert and interactive; INAJA Psych: Cooperative Temp: [97.6 F (36.4 C)-98.4 [...] He was interviewed at his bedside in [place]. Per review of his chart and discussion [...] SHAUN Potter - 11/23/2023 9:00 AM EDT [facility] sent assisted facility referrals for this patient near his zip code. Per PVS ADRIÁN patient is agreeable to discharging to a assisted facility. Phyllis KHAN, TOW CAR DRIVER Flight Control Manager * Kristan Ernst MD - 11/23/2023 8:53 [...] in RT DP/PT Labs: WBC/Hgb/Hct/Plts: 5.24/9.3/28.3/229 (11/22 22) Na/K+/Phos/Mg/Ca: 137/3.4/--/1.8/-- (11/22 22) Bun/Creat/Cl/CO2/Glucose: 24/1.05/90/37/260 (11/22 22-11/23 807) Imaging: no new imaging this morning - [...] ASA and statin as above - sp [facility] 11/19 without intervention Paroxymal Atrial Fibrillation - Coreg as above - [id number] at 6 - On therapeutic anticoagulation at [...] EDT Introduced self and role of the blending coordinator to patient/family. Provided emotional and spiritual support Patient/family encouraged to request a blending coordinator as needed. Chaplains are available 24 hours a day and 7 days a week. For urgent matters in [facility], please page [phone]. If the request is not urgent, please enter a consult. Consults are responded to within 24 hours. Rev. Valdo Henning MA Buddhist, [facility] Link Knitting Machine Operator [facility] Department of Inverform Machine Operator and Clinical Pastoral Education [address] [place], [address] ([place]) pager [phone] [email or web address] 11/22/23 1320 Clinical Encounter Type Visited With Health Care Provider;Family not available;Patient Visit Type Ongoing Support Crisis Visit Spiritual/Emotional Distress Pastoral Time Spent 15 min Referral Verbal Pentecostal Encounters Pentecostal Needs Prayer Spiritual Assessment Spiritual Observation Spirituality helpful Emotional Observation Anxiety;Overwhelmed Hope Observation Specific hope focus Support Observation Strong support;By Family Interventions Provided Prayer;Active listening;Supportive presence Facilitated Sharing of life story;Verbalization of feelings Inverform Machine Operator Education Inverform Machine Operator Service Available Yes Educated Patient Outcomes Patient Outcomes Reduced distress Plan of Care Continue Visiting PRN * Tiffani Lemon APRN-JUNIOR ANALYST - 11/22/2023 1:09 PM EDT [facility] Inpatient Diabetes Consults - Progress Note- [...] FixedvsFlexible: Fixed: U100 Lispro Pens with Pen [place] MAX DAILY DOSE TBD TBD Units for [...] 1-2 weeks in DM Post-Discharge Clinic at [facility] (12th floor). To schedule this appt call the [facility] at [phone] Option #3. 4. Education: NA today 5. Will review glucoses and discuss with Dr Harris as needed Thank you for allowing us to participate in your patient's care. For provider front maker: MAXIMINO : TEAM 2 CC: hyperglycemia History of Present Illness: Yony Vega is a 68 y.o. year old male who is seen at the bedside sitting up in the chair on HFNC eating lunch. He is alert and oriented, but INAJA. BGs remain elevated Creatinine is normal. Current [...] acute abnormalities noted Neurological: Alert and interactive; INAJA Psych: Cooperative Temp: [97.1 F (36.2 C)-97.9 [...] are normal. Estimated RVSP 44 mmHg. * Carmelita Murphy DEVELOPER DESIGNER - 11/22/2023 10:15 AM EDT Acute Care Speech-Language Pathology Clinical Swallow Evaluation Diet recommendation: Recommended Method of Nutrition: PO Recommended Diet Grade: regular Recommended Liquid Consistency: liquid- thin (IDDSI 0) Recommended Medication Administration (as appropriate per MD): Per patient preference Type of Cues/Supervision: none Assistance: independent Discharge Recommendations: Based on the below outcome measures/assessment score(s) and DEVELOPER DESIGNER clinicaljudgment, discharge destination recommendation is: Skilled DEVELOPER DESIGNER services not warranted at discharge Acute DEVELOPER DESIGNER Outcomes Tracking Communicate basic wants and needs?: [...] TONSILLECTOMY 1984 COLONOSCOPY DIAGNOSTIC LARGE BOWEL SURGERY Pain: General [...] (Peripheral IV X 2, Colostomy, External Catheter) DEVELOPER DESIGNER Existing Precautions/Restrictions: (Aspiration, fall) Patient History Comments: [...] fully recovered. Neuro at baseline. Remains on HHFNC. CXR with pulmonary edema. Relevant Imaging: EXAM: [...] have reviewed and approved this report. Prior DEVELOPER DESIGNER history: Seen for Speech-Language Evaluation on 11/13/2023, passed [place] Swallow screen- Yony Vega presents with functional cognitive- communication s/p acute [...] work or volunteering for quality of life. DEVELOPER DESIGNER to sign off at this time. Re [...] appears WDL Strategies Trialed: Strategy: Effectiveness: NA Buchanan Swallow Screen: (administered by: RN) Buchanan Swallow Screening Screening Exclusion Criteria: none, continue with [place]anan Swallow Screening Cognitive Screen: Orientation: able to [...] oz. Water Swallow Challenge : no deficit-passed Margot Swallow Screening Result: passed=cleared for oral intake Voice and Swallow Outcomes: Functional Oral Intake Scale: Level 7 - Total oral intake with no restrictions Clinical Impression: Yony Vega presents with functional oral and pharyngeal phases of the swallow in the [facility], concern for new CVA 11/21/2023, head CT negative. Oral stage appearsWDL. There were no outward signs/symptoms of laryngeal penetration or aspiration. No globus complaints. Recommend Regular diet with thin liquids. Medications per patient preference. No further Speechservices warranted at this time. DEVELOPER DESIGNER to sign off. Please re- consult should [...] and without questions at this time Acute DEVELOPER DESIGNER Goals Plan of Care by JUANCARLOS Brady at 11/22/2023 10:43 AM Version 1 of [...] of session: none altered Needs in reach. DEVELOPER DESIGNER Evaluation and Treatment Time Swallowing Eval 78050: 18 Upon discontinuation of Acute Care Speech [...] this am . NSTEMI: - Plan for LHC - Trop [...] TCAR Ischemic CVA, Location: by [place] - ASHLIE Corral MD 11/22/2023 9:51 AM * Kristan Ernst [...] fully recovered. Neuro at baseline. Remains on HHFNC. CXR with pulmonary edema. Objective: Vital Signs: [...] in RT DP/PT Labs: WBC/Hgb/Hct/Plts: 5.22/9.4/29.7/221 (11/21 0033) Na/K+/Phos/Mg/Ca: 136/3.8/--/1.8/-- (11/21 32) Bun/Creat/Cl/CO2/Glucose: 28/0.90/92/35/234 (11/21 32-11/22 719) Imaging: no new imaging this morning - [...] - ASA and statin as above - 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 Significantly elevated LVEDP @ 40 PAF - Continue coreg - [id number] at 6 - Cardiology recommending DAPT and [...] Restraints: [x] None [] Soft limb [] [place] mitts [] Other Prophylaxis Bundle: HOB: 30 degrees Stress ulcer ppx: [] Yes [] Therapeutic [] Home regimen [x] No, not indicated Chemical DVT ppx: [x] Yes [] No, SCDs ordered Therapy Services: DEVELOPER DESIGNER: [x] Swallow [] Cognitive Eval [] Speaking [...] appreciated PSYCH: Appropriate for the clinical situation EUSEBIO Ferreira Cardiovascular ICU/ Cardiac Surgery 11/22/23 11:20 AM [...] coreg 12.5 mg every 12 hours - [id number] score of 6- IV heparin stopped- will need a/c at discharge - Mobile equipment monitor phototypesetting at discharge to assess AF burden - [...] 23.02 kg/m . LABS Bun/Creat/Cl/CO2/Glucose: 28/0.90/95/30/197 (11/20 0025-11/206) Na/K+/Phos/Mg/Ca: 136/4.3/3.4/1.9/8.8 (11/205) WBC/Hgb/Hct/Plts: 7.39/9.4/29.8/222 (11/205-11/21 0725) BNP (pg/mL) Date Value 11/18/2023 259 (H) [...] collaboration with Dr. Dorothy Kendall, cardiology attending [id number] Score for Atrial Fibrillation Stroke Risk Age in Years: 65-74 Sex: Male CHF History: No Hypertension History: Yes Stroke/TIA/Thromboembolism History: Yes Vascular Disease History: Yes Diabetes History: Yes [id number] Score: 6 Complexity. Any conditions listed below are present on admission unless otherwise specified. . Thank you for this consult. Please call with questions. We will continue to follow along. EUSEBIO Guadalupe Cardiology Consult Service Phone: [phone] * EUSEBIO Montero - 11/21/2023 4:43 PM EDT [facility] Inpatient Diabetes Consults - Progress Note- [...] FixedvsFlexible: Fixed: U100 Lispro Pens with Pen [place] MAX DAILY DOSE TBD TBD Units for [...] 1-2 weeks in DM Post-Discharge Clinic at [facility] (12th floor). To schedule this appt call the [facility] at [phone] Option #3. 4. Education: NA today 5. Will review glucoses and discuss with Dr Harris as needed Thank you for allowing us to participate in your patient's care. For provider front maker: MAXIMINO : TEAM 2 CC: hyperglycemia History [...] He was interviewed at his bedside in [place]. Per review of his chart and discussion [...] [facility] 11/21/2023 * JUAN RAMON Do - 11/21/2023 10:30 AM EDT Images from the original note were not included. Responded to automated page event for ERT. Medical staff providing care to patient at the time of arrival. Family not present at this time. Link Knitting Machine Operator support is available upon request. Chaplains are available in-house 24 hours a day and 7 days a week. For urgent matters in [facility], please page [phone]. If the request is not urgent, please enter a consult. Consults are responded to within 24 hours. Rev. Valdo Henning MA Buddhist, [facility] Link Knitting Machine Operator [facility] Department of Inverform Machine Operator and Clinical Pastoral Education [address] [place], [address] ([place]) pager [phone] [email or web address] 11/21/23 1030 Clinical Encounter Type Visited With Health Care Provider;Family not available;Patient not available Visit Type Follow-up Crisis Visit ERT Pastoral Time Spent 15 min Referral Automated Page Interventions Provided Supportive presence Inverform Machine Operator Education Inverform Machine Operator Service Available Yes Plan of Care Continue Visiting PRN * Shekhar Escamilla, PT - 11/21/2023 10:24 AM EDT Acute Physical Therapy Treatment Prior to Admission [facility] score(s): PRIOR LEVEL AM-PAC Mobility Raw Score: 24 PRIOR LEVEL AM-PAC Activity Raw Score: 24 Current AM-PAC score(s): CURRENT AM-PAC Mobility Raw Score: 8 Based on the above AM-PAC score(s) and PT clinical judgment, patient is a good candidate for discharge to Intermediate Facility Barriers to discharge home: Patient needs [...] Patient Safety Communication Prior to Visit: Nursing (RN Shekhar and RASHI Evans) Subjective: Pt agreeable to [...] time during the session and the team (GITA Aguirre and ARTI Morales) both notified and addressed. [...] x2. Mobility Assessment/Intervention: Supine to Sit Mobility [place] Level: Supine->Sit: moderate assist (50% patient effort) Skilled Rationale: Positioning, Verbal cues, Tactile cues, Sequencing, Technique of activity Transfer Assessment/Intervention: Sit to Stand Transfer [place] Level: Sit->Stand: moderate assist (50% patient effort) Physical Assist: Sit->Stand: 2 person assist Skilled Rationale: Positioning, Sequencing, Verbal cues, Tactile cues Skilled Intervention/Details: Sit->Stand: x3 Stand to Sit Transfer [place] Level: Stand->Sit: moderate assist (50% patient effort) Physical Assist: Stand->Sit: 2 person assist Bed-Chair Transfer [place] Level: Bed<->Chair: moderate assist (50% patient effort) Physical Assist: Bed<->Chair: 2 person assist Skilled Rationale: Positioning, Sequencing, Verbal cues, Tactile cues Gait/Functional Mobility Assessment/Intervention: Gait Assessment [place] Level: Gait: moderate assist (50% patient effort) [...] assess pt. Stairs Assessment/Intervention: Outcome Score(s): CURRENT AM-PAC Basic [...] with a railin - Total Assistance CURRENT [facility] Mobility Raw Score: 8 CURRENT [facility] Mobility Functional Limitation: 86.62% Impaired in Basic [...] of session: none (Per RN. Pt left [facility] RN.) Needs in reach. Time In: 0956 Time Out: 1024 Total Visit Time: 28 minutes Total Treatment Time (skilled, billable minutes): 28 minutes Upon discontinuation of Acute Care Physical Therapy Services or patient discharge from the hospitalthis note represents the current Physical Therapy Discharge Summary. * Bessie Bean, OT - 11/21/2023 9:57 AM EDT Acute Occupational Therapy Treatment Prior to Admission AM-PAC Score: PRIOR LEVEL AM-PAC Activity Raw Score: 24 PRIOR LEVEL AM-PAC Mobility Raw Score: 24 Current AM-PAC score(s): CURRENT AM-PAC Activity Raw Score: 12 Based on the above AM-PAC score(s), and OT clinical judgment, discharge destination recommendation is: Intermediate Facility Barriers to discharge home: Patient needs [...] in midline due to kyphotic posture and [id number] cues for task due to reducedkinesthetic awareness [...] walker Mobility Assessment/Intervention: Supine to Sit Mobility [place] Level: Supine->Sit: moderate assist (50% patient effort) Bed Features/Set-up: Supine->Sit: Head of bed elevated, Use of bed rail Skilled Rationale: Positioning, Sequencing, Hand placement, Verbal cues Skilled Intervention/Details: Supine->Sit: Pt initiated progressing LE toward EOB and required assistance to advance off bed and right trunk to midline due to generalized weakness. Transfer Assessment/Intervention: Sit to Stand Transfer [place] Level: Sit->Stand: moderate assist (50% patient effort) Physical Assist: Sit->Stand: 2 person assist Assistive Device: Sit->Stand: 2 wheeled walker Skilled Rationale: Sequencing, Positioning, Hand placement, Verbal cues Skilled Intervention/Details: Sit->Stand: x3 reps; cues to rock forward and count to 3 to gain momentum in preparation for ascent with tactile cues provided at hips/knees to reduce risk of posterior LOB. Stand to Sit Transfer [place] Level: Stand->Sit: moderate assist (50% patient effort) Physical Assist: Stand->Sit: 2 person assist Assistive Device: Stand->Sit: 2 wheeled walker, armed chair Skilled Rationale: Hand placement, Verbal cues, Cues for increased safety, Controlled descent for sitting Skilled Intervention/Details: Stand->Sit: Cues to cross UE over chest and utilize eccentric control to slowly descend into chair. Functional Mobility: Functional Mobility [place] Level: Functional Mobility/Gait: moderate assist (50% patient [...] and standing I/ADL tasks. Outcome Score(s): CURRENT [facility] Daily Activity Inpatient Short Form Putting on/Taking Off Lower Body Clothin - Total Assistance Bathin - A Lot of Assistance Toiletin - Total Assistance Putting on/Taking Off Upper Body Clothin - A Lot of Assistance Groomin - A Little Assistance Eatin - A Little Assistance CURRENT [facility] Activity Raw Score: 12 CURRENT [facility] Activity Functional Limitation/Modifier: 66.57% Currently Impaired in Daily Activity- CL Assessment & Plan: 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 Pt will continue to benefit from [...] self-care, cognition, strength Assisted by during session: WALKER Mcdowell PPE used during patient interaction: gloves, facemask [...] - ASA and statin as above - [facility] 11/19 without intervention Paroxymal Atrial Fibrillation - Coreg as above - [id number] at 6 - On therapeutic anticoagulation at [...] SNF. Molly Michel MD 11/21/2023 * Valerie Moralse APRN-JUNIOR ANALYST - 11/21/2023 6:25 AM EDT CVICU DAILY [...] respiratory needs 24hr interval history: Went for [facility], no interventions done. Stroke code called [...] abnormalities - 11/19 heart cath: occlusion to nenana RCA, grafts from previous bypass patent. Significantly elevated LVEDP @ 40 PAF - Continue coreg - [id number] at 6 - Cardiology recommending DAPT and [...] Restraints: [x] None [] Soft limb [] [place] mitts [] Other Prophylaxis Bundle: HOB: 30 degrees Stress ulcer ppx: [] Yes [] Therapeutic [] Home regimen [x] No, not indicated Chemical DVT ppx: [x] Yes [] No, SCDs ordered Therapy Services: DEVELOPER DESIGNER: [] Swallow [] Cognitive Eval [] Speaking [...] were not included. Pt remains on 4 Ross in ICU status. Pt suffered NSTEMI on Thursday 11/16, plan for LHC today. Pt on bipap with hep gtt. Will need input from therapy to determine safe dc dispo. CM will follow for further needs. Yulia Morataya, LAST CHALKER, MATERIAL CHASER, CCM Clinical Mr Teacher [phone] * Jose Eduardo Cobos, PAC - 11/20/2023 12:48 PM EDT CVICU DAILY [...] cath today PAF - Continue coreg - [id number] at 6 - Cardiology recommending DAPT and [...] Yes [] No, SCDs ordered Therapy Services: DEVELOPER DESIGNER: [] Swallow [] Cognitive Eval [] Speaking [...] appreciated PSYCH: Appropriate for the clinical situation Jose Eduardo Cobos, PAC Cardiovascular ICU/ Cardiac Surgery 11/20/23 12:48 PM * Dorothy Cary, FIRE SUPPORT MAN-JUNIOR ANALYST - 11/20/2023 10:08 AM EDT [facility] Inpatient Diabetes Consults - Progress Note- [...] FixedvsFlexible: Fixed: U100 Lispro Pens with [place] MAX DAILY DOSE TBD TBD Units for [...] 1-2 weeks in [facility] Post[facility]charge [facility] at [facility] (12th floor). To schedule this appt call the [facility] at [phone] Option #3. 4. Education: Discussed plan for the day. 5. Will review glucoses and discuss with Dr Harris as needed Thank you for allowing us to participate in your patient's care. For provider front maker: MAXIMINO : TEAM 2 CC: hyperglycemia History [...] He was interviewed at his bedside in [place]. Per review of his chart and discussion [...] on 11/16/[address] Ford. Continue NPO C today, appreciate Interventional Cards assistance Lasix today [...] Atrial Fibrillation - Coreg as above - [id number] at 6 - Eliquis as above - [...] CVA, Location: by [place] - Shayna, ASHLIE aCrdona MD 11/20/2023 9:44 AM * Shekhar Escamilla, PT - 11/20/2023 8:27 AM EDT Acute Physical Therapy Treatment Prior to Admission [facility] score(s): PRIOR LEVEL AM-PAC Mobility Raw Score: 24 PRIOR LEVEL AM-PAC Activity Raw Score: 24 Current AM-PAC score(s): CURRENT AM-PAC Mobility Raw Score: 10 Based on the above AM-PAC score(s) and PT clinical judgment, patient is a good candidate for discharge to Intermediate Facility Barriers to discharge home: Patient needs [...] Patient Safety Communication Prior to Visit: Nursing (RN Patsy and RN Shekhar. Light activity this date.) Subjective: Pt agreeable [...] transfer, Mobility Assessment/Intervention: Supine to Sit Mobility [place] Level: Supine->Sit: moderate assist (50% patient effort) Physical Assist: Supine->Sit: 2 person assist Skilled Rationale: Positioning, Sequencing, Verbal cues, Tactile cues, Energy conservation, Breathing strategies Transfer Assessment/Intervention: Sit to Stand Transfer [place] Level: Sit->Stand: minimum assist (75% patient effort) Physical Assist: Sit->Stand: 2 person assist Skilled Rationale: Positioning, Sequencing, Verbal cues, Tactile cues Stand to Sit Transfer [place] Level: Stand->Sit: minimum assist (75% patient effort) Physical Assist: Stand->Sit: 2 person assist Bed-Chair Transfer [place] Level: Bed<->Chair: minimum assist (75% patient effort) Physical Assist: Bed<->Chair: 2 person assist Skilled Rationale: Positioning, Sequencing, Verbal cues, Tactile cues, Energy conservation, Breathing strategies Gait/Functional Mobility Assessment/Intervention: Stairs Assessment/Intervention: Outcome Score(s): CURRENT [facility] Basic Mobility Inpatient Short Form Turning over [...] with a railin - Total Assistance CURRENT [facility] Mobility Raw Score: 10 CURRENT [facility] Mobility Functional Limitation: 76.75% Impaired in Basic [...] current Physical Therapy Discharge Summary. * Donna Chavez, FIRE SUPPORT MAN-JUNIOR ANALYST - 11/20/2023 8:13 AM EDT CARDIOLOGY CONSULT [...] coreg 12.5 mg every 12 hours - [id number] score of 6- continue IV heparin for a/c - Mobile equipment monitor phototypesetting at discharge to assess AF burden - [...] 25.55 kg/m . LABS Bun/Creat/Cl/CO2/Glucose: 23/0.93/98/30/186 (11/19 0002-11/19 509) Na/K+/Phos/Mg/Ca: 137/3.5/3.2/1.6/8.0 (11/19 0002) WBC/Hgb/Hct/Plts: 8.15/9.4/29.6/195 (11/19 0002) BNP (pg/mL) Date Value 11/18/2023 259 (H) [...] collaboration with Dr. Dorothy Kendall, cardiology attending [id number] Score for Atrial Fibrillation Stroke Risk Age in Years: 65-74 Sex: Male CHF History: No Hypertension History: Yes Stroke/TIA/Thromboembolism History: Yes Vascular Disease History: Yes Diabetes History: Yes [id number] Score: 6 Complexity. Hypocalcemia - Continue to monitor and replete. Any conditions listed below are present on admission unless otherwise specified. . Thank you for this consult. Please call with questions. We will continue to follow along. EUSEBIO Guadalupe Cardiology Consult Service Phone: [phone] * Bessie Bean, OT - 11/20/2023 8:02 AM EDT Acute Occupational Therapy Treatment Prior to Admission AM-PAC Score: PRIOR LEVEL AM-PAC Activity Raw Score: 24 PRIOR LEVEL AM-PAC Mobility Raw Score: 24 Current AM-PAC score(s): CURRENT AM-PAC Activity Raw Score: 17 Based on the above AM-PAC score(s), and OT clinical judgment, discharge destination recommendation is: Intermediate Facility Barriers to discharge home: Patient needs [...] falls. Mobility Assessment/Intervention: Supine to Sit Mobility [place] Level: Supine->Sit: moderate assist (50% patient effort) [...] weakness. Transfer Assessment/Intervention: Sit to Stand Transfer [place] Level: Sit->Stand: minimum assist (75% patient effort) [...] of posterior LOB. Stand to Sit Transfer [place] Level: Stand->Sit: minimum assist (75% patient effort) Physical Assist: Stand->Sit: 2 person assist Assistive Device: Stand->Sit: armed chair Skilled Rationale: Verbal cues, Hand placement, Technique of activity, Controlled descent for sitting Skilled Intervention/Details: Stand->Sit: Cues to cross UE over chest and utilize eccentric control to slowly descend into chair. Bed-Chair Transfer [place] Level: Bed<->Chair: minimum assist (75% patient effort) [...] put him on 15L. Outcome Score(s): CURRENT [facility] Daily Activity Inpatient Short Form Putting on/Taking Off Lower Body Clothin - A Lot of Assistance Bathin - A Lot of Assistance Toiletin - A Little Assistance Putting on/Taking Off Upper Body Clothin - A Little Assistance Groomin - A Little Assistance Eatin - No Assistance CURRENT -[facility] Activity Raw Score: 17 CURRENT AM-[facility] Activity Functional Limitation/Modifier: 50.11% Currently Impaired in Daily Activity- CK Assessment & Plan: Pt demonstrating good progress toward care home goals as evidenced by ability to perform standing balance tasks and OOB mobility to chair, however, pt limited by medical status (respiratory status and unable to come off CPAP at this time) 2in ability to perform self-care tasks with independence. Ptwill benefit from continued rehab at SNF to progress toward care home goals. Pt will continue to benefit from [...] RN aware Needs in reach. Time In: 08 Time Out: 824 Total Visit Time: 23 [...] R TCAR. Cardiology following - plan for [facility] today. Visited patient. Obtained wt/intake hx. Patient endorsed a UBW of 150 lbs. Denied changes in wt/appetite/intake MANAGER BAR. Limited wt records reflect stable wt around [...] Change: Stable wt around 145-150 lbs observed MANAGER BAR. Wt gain noted since 11/17- likely wt inaccuracy vs elevated r/t fluid Meds reviewed: insulin (NPH, SSI), Protonix, Miralax; 11/18- 20mg Lasix, 40mg Lasix; PRN- 4g Mg Sulfate (x1 14, x1 /16), 60mEq Kdur (x1 15), 10mEq Kcl (x4 11/18) Labs reviewed: Ca 8, glucose 224, POC glucose 186-373 mg/dL (x24 hrs); 11/12- HgbA1C 7.8 GI: colostomy output 50mL 11/17 Skin Integrity: abrasion R back; surgical wound R carotid; sheath site L femoral Edema: none documented Estimated Nutrition Needs: Weight Used: admit wt of 67kg Estimated Energy Requirements (kcal/day): 1547-6744 kcal/day (25-30 kcal/kg) Estimated Protein Requirements (g/day): 80-101 g pro/day (1.2-1.5 g/kg) Estimated Fluid Requirements: 1 mL/kcal or per primary team discretion EMR including meds, labs, I&Os, vitals, and allergy list reviewed. Assessment: Patient is not currently at nutrition risk. Catalina Moreno, MPH, RD, LD, [facility] Pager #[phone] * Donna Bailey, FIRE SUPPORT MAN-JUNIOR ANALYST - 11/19/2023 11:44 AM EDT CARDIOLOGY CONSULT [...] in SR on telemetry. Continue coreg - [id number] score of 6- continue IV heparin for now - Mobile equipment monitor phototypesetting at discharge to assess AF burden - [...] 536) Na/K+/Phos/Mg/Ca: 133/3.9/2.5/1.4/8.4 (11/19 51) WBC/Hgb/Hct/Plts: 9.44/10.3/31.1/209 (11/18 0052) BNP (pg/mL) Date Value 11/18/2023 259 (H) [...] collaboration with Dr. Enrique Gonzalez, cardiology attending [id number] Score for Atrial Fibrillation Stroke Risk Age in Years: 65-74 Sex: Male CHF History: No Hypertension History: Yes Stroke/TIA/Thromboembolism History: Yes Vascular Disease History: Yes Diabetes History: Yes [id number] Score: 6 Complexity. Hyponatremia - Secondary to fluid shifts. Monitor. Hypomagnesemia - Continue to monitor and replete. Hypocalcemia - Continue to monitor and replete. Any conditions listed below are present on admission unless otherwise specified. . Thank you for this consult. Please call with questions. We will continue to follow along. EUSEBIO Guadalupe Cardiology Consult Service Phone: [phone] * Victor Manuel Coyne, DO - 11/19/2023 [...] TCAR Ischemic CVA, Location: by ASHLIE Willingham DO 11/19/2023 11:29 AM * GITA Hamilton - 11/19/2023 11:16 AM EDT CVICU DAILY PROGRESS NOTE. HISTORY OF PRESENT ILLNESS: Mr. Vega is a 68 y.o. male who has a pertinent past medical history including CAD s/p CABG 2007 and subsequent PCI 2014, prior CVAs, pAF, HTN, HLD, DM, prior R CEA who underwent R TCAR on 4/11 given prior CEA. Patient started to have [...] motion abnormalities PAF - Continue coreg - [id number] at 6 - Cardiology recommending DAPT and [...] Yes [] No, SCDs ordered Therapy Services: DEVELOPER DESIGNER: [] Swallow [] Cognitive Eval [] Speaking [...] appreciated PSYCH: Appropriate for the clinical situation Jose Eduardo Cobos, PAC Cardiovascular ICU/ Cardiac Surgery 11/19/23 11:16 AM [...] astolerated, more diuresis today. Cardiology planning for [facility] tomorrow. Please keep NPO after midnight [...] Atrial Fibrillation - Coreg as above - [id number] at 6 - Eliquis as above - [...] Iris Donnelly MD 11/19/2023 Vascular Surgery Team: [place] Floor patients: M-F 6am-5pm please call. Julianne # [phone]/[place] #[id number]. After 5pm M-F and weekends please page the front maker resident. Consults: please page the front maker resident ICU patients: page front maker fellow or chief resident. -Investor[employer] chat is not a reliable method of [...] CPAP tonight, plan to transition back to [facility] in AM if able RELEVANT INFORMATION VITALS: Blood pressure 166/81, pulse 89, temperature 98.3 F (36.8 C), temperature source Oral, resp. rate 20, height 1.676 m (5' 6), weight 64.9 kg (143 lb 1.3 oz), SpO2 96%. pH/PCO2/PO2/HCO3: 7.40/41/91/25 (11/17 042) Documentation of LDA necessity Line necessity: n/a [...] Dejesus MD 11/19/2023 1:43 AM * Darinel Graves DO - 11/18/2023 10:43 AM EDT CARDIOLOGY PROGRESS [...] discussed with the cardiology attending, Dr. Carlos Graves DO Cardiovascular Medicine Fellow [facility] INTERIM HISTORY Overnight: - Chest pain with [...] 9.69/11.4/35.7/200 (11/17 33-11/17 240) Associated attestation - Enriuqe Gonzalez MD - 11/18/2023 11:01 AM EDT ATTENDING ADDENDUM I discussed, examined, and evaluated the patient with the fellow/resident/JUNIOR ANALYST on 11/18/2023. I have independently confirmed essential components of the medical history and the physical examination. I personally reviewed available pertinent labs, EKGs, imaging. I agree with the note including history, examination, and medical decision making, with the following addendum: Yony Vega is a 68 y.o. male with CAD s/p prior CABG in 2007 and PCI in 2014, paroxysmal afib.He is here with concern for [...] need LHC. He is already on DAPT. Enriuqe Gonzalez MD, FACC National Account Representativesparker and patcher Division of Cardiovascular Medicine [facility] * Iris Donnelly MD - 11/18/2023 10:00 [...] Atrial Fibrillation - Coreg as above - [id number] at 6 - Eliquis as above - [...] Iris Donnelly MD 11/18/2023 [facility] Team[facility] Floor patients: M-F 6am-5pm please call. Julianne # [phone]/[place] #[phone]. After 5pm M-F and weekends please page the front maker resident. Consults: please page the front maker resident ICU patients: page front maker fellow or chief resident. -Epic chat is [...] - Cardiology will follow Sathish Perez DO Solutions Operator * Nito Ordoñez OT - 11/17/2023 10:35 AM EDT Acute Occupational Therapy Treatment Prior to Admission AM-PAC Score: PRIOR LEVEL AM-PAC Activity Raw Score: 24 PRIOR LEVEL AM-PAC Mobility Raw Score: 24 Current AM-PAC score(s): CURRENT AM-PAC Activity Raw Score: 18 Based on the above AM-PAC score(s), and OT clinical judgment, discharge destination recommendation is: Intermediate Facility Barriers to discharge home: Patient needs [...] Assessment/Intervention: Transfer Assessment/Intervention: Sit to Stand Transfer [place] Level: Sit->Stand: minimum assist (75% patient effort) Assistive Device: Sit->Stand: gait belt, 2 wheeled walker, armed chair Skilled Rationale: Verbal cues, Energy conservation, Technique of activity Stand to Sit Transfer [place] Level: Stand->Sit: contact guard assist Assistive Device: Stand->Sit: gait belt, 2 wheeled walker, armed chair Skilled Rationale: Verbal cues, Controlled descent for sitting, Technique of activity, Cues for increased safety Toilet Transfer [place] Level: Toilet: minimum assist (75% patient effort) Assistive Device: Toilet: gait belt, 2 wheeled walker Skilled Rationale: Verbal cues, Controlled descent for sitting, Technique of activity, Cues for increased safety Functional Mobility: Functional Mobility [place] Level: Functional Mobility/Gait: minimum assist (75% patient [...] Cues for increased safety Outcome Score(s): CURRENT [facility] Daily Activity Inpatient Short Form Putting on/Taking Off Lower Body Clothin - A Little Assistance Bathin - A Lot of Assistance Toiletin - A Little Assistance Putting on/Taking Off Upper Body Clothin - A Little Assistance Groomin - A Little Assistance Eatin - No Assistance CURRENT [facility] Activity Raw Score: 18 CURRENT -[facility] Activity Functional Limitation/Modifier: 46.65% Currently Impaired [...] current Occupational Therapy Discharge Summary. * Jaleel Navarrete APRN-ARTI - 11/17/2023 10:34 AM EDT VASCULAR SURGERY PROGRESS NOTE HPI: Yony Vega is a 68 y.o. male who presented with symptomatic right carotid stenosis. Plan for right TCAR given previous R CEA Interval/24hrs: Hematoma noted to right neck overnight. Improved this morning. [place] accidentally dislodged. VSS. Hydra and labetalol x1 [...] Pulses: Bilateral DP/PT palpable Labs: WBC/Hgb/Hct/Plts: 7.19/10.9/33.4/222 (11/16 0020) Na/K+/Phos/Mg/Ca: 139/3.9/4.3/1.2/8.1 (11/16 0020) Bun/Creat/Cl/CO2/Glucose: 16/0.68/104/24/104 (11/16 0020-11/16 0559) Imaging: Assessment & Plan: Yony Vega is [...] Atrial Fibrillation - Coreg as above - [id number] at 6 - Eliquis as above - [...] care. Dispo pending . Therapy recommending SNF. Jaleel Hitchcock, FIRE SUPPORT MAN-JUNIOR ANALYST 11/17/2023 Vascular Surgery Team: [place] Floor patients: M-F 6am-5pm please call. Julianne # [phone]/[place] #[phone]. After 5pm M-F and weekends please page the front maker resident. Consults: please page the front maker resident ICU patients: page front maker fellow or chief resident. 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, 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 Objective/Observation: Vitals/Vitals [...] bruising) Mobility Assessment: Supine to Sit Mobility [place] Level: Supine->Sit: moderate assist (50% patient effort) [...] positioning Transfer Assessment: Sit to Stand Transfer [place] Level: Sit->Stand: minimum assist (75% patient effort) Assistive Device: Sit->Stand: 2 wheeled walker, rollator Skilled Rationale: Hand placement, Verbal cues, Tactile cues, Arm in arm, Facilitate anterior shift, Full extension to upright positioning/posture, Upright gaze/neck extension, Technique of activity,Breathing strategies Skilled Intervention/Details: Sit->Stand: x 2 from EOB, x 1 from rollator seat Stand to Sit Transfer [place] Level: Stand->Sit: minimum assist (75% patient effort) Skilled Rationale: Hand placement, Verbal cues, Tactile cues, Technique of activity, Controlled descent for sitting, Breathing strategies Skilled Intervention/Details: Stand->Sit: to rollator seat, to EOB, to chair Bed-Chair Transfer [place] Level: Bed<->Chair: minimum assist (75% patient effort) Assistive Device: Bed<->Chair: 2 wheeled walker Skilled Rationale: Verbal cues, Technique of activity, Cues for increased safety Gait/Functional Mobility: Gait Assessment [place] Level: Gait: minimum assist (75% patient effort) [...] increased unsteadiness with rollator Outcome Score(s): CURRENT AM-PAC Basic Mobility Inpatient [...] railin - A Lot of Assistance CURRENT -[facility] Mobility Raw Score: 15 CURRENT AM-[facility] Mobility Functional Limitation: 57.70% Impaired in [...] Problem: PT - Outcome Measure Goals Goal: [facility] - Patient will demonstrate an improvement in AM-[facility] Inpatient Mobility Short Form of atleast [...] current Physical Therapy Discharge Summary. * Hitesh Montanez, FIRE SUPPORT MAN-JUNIOR ANALYST - 11/17/2023 9:27 AM EDT NEUROVASCULAR STROKE SERVICE Daily Progress Note IDENTIFYING INFORMATION Yony Vega MR# [id number] 11/17/2023 HISTORY OF PRESENT ILLNESS Yony Vega [...] -Vascular risk factor modifications and stroke education -PT/OT/DEVELOPER DESIGNER evaluations -Please have Yony Vega follow up [...] discussed with Neurovascular attending Dr. Ammon Montanez, FIRE SUPPORT MAN-JUNIOR ANALYST 11/17/2023 10:23 AM VITAL SIGNS Temp: [97.2 [...] Progress Note IDENTIFYING INFORMATION Yony Vega MR# [id number] 11/16/2023 HISTORY OF PRESENT ILLNESS Yony Vega [...] - Coreg as above - Cardiology consulted, [id number] at 6, per cardiology recs started on [...] be discharged TBD pending workup Brian Self, FIRE SUPPORT MAN-JUNIOR ANALYST 11/16/2023 7:03 AM VITAL SIGNS Temp: [97.7 [...] 8.6 mg Per NG tube QAM * EUSEBIO Guadalupe - 11/15/2023 8:29 AM EDT General Cardiology [...] or 15% 30 day risk of , NH or cardiac arrest- based on his nuclear [...] in SR on telemetry. Continue coreg - [id number] score of 6- recommend IV heparin - would bridge to DOAC when okay per surgery - Mobile equipment monitor phototypesetting at discharge to assess AF burden - [...] Na/K+/Phos/Mg/Ca: 139/3.5/--/--/-- (11/14 26) WBC/Hgb/Hct/Plts: 5.80/11.3/35.9/211 (11/14 26) No results found for: BNP Lab Results [...] Senna 8.6 mg Per NG tube QAM [id number] Score for Atrial Fibrillation Stroke Risk Age in Years: 65-74 Sex: Male CHF History: No Hypertension History: Yes Stroke/TIA/Thromboembolism History: Yes Vascular Disease History: Yes Diabetes History: Yes [id number] Score: 6 [id number] Score for Atrial Fibrillation Stroke Risk Age in Years: 65-74 Sex: Male CHF History: No Hypertension History: Yes Stroke/TIA/Thromboembolism History: Yes Vascular Disease History: Yes Diabetes History: Yes [id number] Score: 6 Complexity. Any conditions listed below are present on admission unless otherwise specified. . Thank you for this consult. Please call with questions. We will continue to follow along. EUSEBIO Guadalupe Cardiology Consult Service Phone: [phone] * Brian EUSEBIO Patrick - 11/15/2023 7:50 AM EDT NEUROVASCULAR STROKE SERVICE Daily Progress Note IDENTIFYING INFORMATION Yony Vega MR# [id number] 11/15/2023 HISTORY OF PRESENT ILLNESS Yony Vega [...] - Coreg as above - Cardiology consulted, [id number] at 6, per cardiology recs started on [...] likely be discharged TBD pending workup Brian Self APRN-JUNIOR ANALYST 11/15/2023 7:50 AM VITAL SIGNS Temp: [97.9 [...] interviewed and examined this patient with the PULLBOAT ENGINEER. I reviewed the history and exam detailed [...] patient was anointed and provided communion by Father Eugenio Avitia. Chaplains are available 27/02. For urgent needs in [facility], please page [phone]. For urgent needs in , [facility], [place], [place], or [place], please page [phone]. Father Eugenio Department of Inverform Machine Operator and [facility] [phone] 11/14/23 1415 Clinical Encounter Type Visited With Patient Visit Type Introduction Pastoral Time Spent 15 min Pentecostal Encounters Pentecostal Needs Sacramental Interventions Provided Active listening;Prayer;Supportive presence Sacrament Molena;Communion Sacramental Encounters Sacrament of Sick-Anointing Anointed * [...] is a good candidate for discharge to Intermediate Facility Barriers to discharge home: Lack of [...] sitting Mobility Assessment/Intervention: Supine to Sit Mobility [place] Level: Supine->Sit: supervision Skilled Intervention/Details: Supine->Sit: generalized safety cues Sit to Supine Mobility [place] Level: Sit->Supine: stand-by assist Bed Features/Set-up: Sit->Supine: Flat Transfer Assessment/Intervention: Gait/Functional Mobility Assessment/Intervention: Stairs Assessment/Intervention: Outcome Score(s): CURRENT [facility] Basic Mobility Inpatient Short Form Turning over [...] railin - A Lot of Assistance CURRENT [facility] Mobility Raw Score: 18 CURRENT [facility] Mobility Functional Limitation: 46.58% Impaired in Basic [...] current Physical Therapy Discharge Summary. * Donna Bailey, FIRE SUPPORT MAN-JUNIOR ANALYST - 11/14/2023 12:11 PM EDT CARDIOLOGY CONSULT PROGRESS NOTE Cardiology consult on 11/13/2023 Hx CAD s/p stent, CABG on stroke service, request per vascular surgery for upcoming CEA v stent HPI I saw . Yony Vega in follow-up on 11/14/2023. He [...] or 15% 30 day risk of , NH or cardiac arrest- based on his nuclear [...] in SR on telemetry. Continue coreg - [id number] score of 6- continue IV heparin with bridge to DOAC - Mobile equipment monitor phototypesetting at discharge to assess AF burden - [...] is 23.24 kg/m . LABS Bun/Creat/Cl/CO2/Glucose: 18/0.86/101/29/160 (11/13 0140-11/14 647) Na/K+/Phos/Mg/Ca: 140/3.7/--/--/-- (11/14 139) WBC/Hgb/Hct/Plts: 6.03/12.0/37.6/249 [...] Per NG tube QAM heparin 11 Units/kg/hr (11/14/23620) [id number] Score for Atrial Fibrillation Stroke Risk Age in Years: 65-74 Sex: Male CHF History: No Hypertension History: Yes Stroke/TIA/Thromboembolism History: Yes Vascular Disease History: Yes Diabetes History: Yes [id number] Score: 6 Complexity. Hypomagnesemia - Continue to monitor and replete. Any conditions listed below are present on admission unless otherwise specified. . Thank you for this consult. Please call with questions. We will continue to follow along. EUSEBIO Guadalupe Cardiology Consult Service Phone: [phone] * EUSEBIO Field - 11/14/2023 6:45 AM EDT NEUROVASCULAR STROKE SERVICE Daily Progress Note IDENTIFYING INFORMATION Yony Vega MR# [id number] 11/14/2023 HISTORY OF PRESENT ILLNESS Yony Vega [...] - Coreg as above - Cardiology consulted, [id number] at 6, per cardiology recs started on [...] be discharged TBD pending workup Brian Self, BALTAZAR-JUNIOR ANALYST 11/14/2023 6:45 AM VITAL SIGNS Temp: [98 [...] attestation - Joselito Mora MD - 11/14/2023 4:52 PM EDT Attending Physician Note (GC) I interviewed and examined this patient with the PULLBOAT ENGINEER. I reviewed the history and exam detailed in the note. I agree with the medical decision making with the following comment(s): New AF with multi-focal infarct and also symptomatic carotid. Planning for SANTANA tomorrow and then brief DAPT + anticoagulation with plan to transition to a single antiplatelet agent and anticoagulation subsequently. * Neena Kim, JUANCARLOS - 11/13/2023 1:40 PM EDT Acute Care DEVELOPER DESIGNER Speech/Language/Cognitive Evaluation Best mode of Communication: spoken language (regular speech) Discharge Recommendations: Based on the below outcome measures/assessment score(s) and DEVELOPER DESIGNER clinicaljudgment, discharge destination recommendation is: Skilled DEVELOPER DESIGNER services not warranted at discharge Acute DEVELOPER DESIGNER Outcomes Tracking Communicate basic wants and needs?: [...] work or volunteering for quality of life. DEVELOPER DESIGNER to sign off at this time. Re [...] information: Pt resting flat in bed upon DEVELOPER DESIGNER arrival. Pain: General Pain Documentation (Adult, OB, Peds) Presence of Pain: not present: non-verbal indicator of pain/discomfort Presence of Pain Score (Auto-calculated): 0 Comfort/Acceptable General Pain Level/Goal: 0 Precautions: Patient Safety Communication Prior to Visit: Nursing Lines/Tubes/Drains (Rehab Status): No critical lines at this time DEVELOPER DESIGNER Existing Precautions/Restrictions: no known precautions/restrictions Patient History [...] but doesn't cook much and doesn't drive. DEVELOPER DESIGNER Existing Precautions/Restrictions: no known precautions/restrictions Respiratory Status: O2 Sat (%): 91 % (11/12 112) O2 Device: room air (11/12 1126) Flow (L/min): 2 (11/12 5114) EXPRESSIVE LANGUAGE: Intact RECEPTIVE LANGUAGE: Intact READING: [...] 0 Asthenia (A): 0 Strain (S): 0 DEVELOPER DESIGNER Outcomes: DEVELOPER DESIGNER Outcomes / Standardized Measures Score The Orientation [...] free recall attempt Total Score: 30 Acute DEVELOPER DESIGNER Goals Notes from 11/13/2023 2:36 AM through 11/13/2023 2:36 PM Goal 1: Patient will demonstrate understanding regarding Speech-Language Pathology role and plan ofcare and evaluation results/recommendations to improve awareness of condition/DEVELOPER DESIGNER role by the time of discharge. Results [...] of session: none altered Needs in reach. DEVELOPER DESIGNER Evaluation and Treatment Time Speech Eval - Sound Production W/Lang Comp and Exp [id number]: 15 Upon discontinuation of Acute Care Speech Therapy Services or patient discharge from the hospital this note represents the current Speech Therapy Discharge Summary * JUANCARLOS White - 11/13/2023 1:28 PM EDT Acute Care Speech Language Pathology Note Received consult for swallow evaluation. However, patient passed [place]anan Swallow Screening by nursing.Swallow eval by DEVELOPER DESIGNER will not be completed at this time unless this service notified of change in status or re-consult for swallow eval placed. DEVELOPER DESIGNER to proceed with speech/language/cognitive evaluationper order. Thank you. No charge Therapist: Neena Kim M.A., DEVELOPER DESIGNER COND.[id number] * Fartun Mckinley APRN-JUNIOR ANALYST - 11/13/2023 1:13 PM EDT NEUROVASCULAR STROKE SERVICE Daily Progress Note IDENTIFYING INFORMATION Yony Vega MR# [id number] 11/13/2023 HISTORY OF PRESENT ILLNESS Yony Vega [...] - Coreg as above - Cardiology consulted, [id number] at 6, per cardiology recs started on neuro scale hep gtt 11/12 with Aspirin 81 mg, stopped plavix 11/12. (Plan to stop hep gtt 6 hrs prior any surgery) Disposition: Yony Vega will likely be discharged pending workup Fartun Mckinley, BALTAZAR-JUNIOR ANALYST 11/13/2023 1:13 PM VITAL SIGNS Temp: [98 [...] interviewed and examined this patient with the PULLBOAT ENGINEER. I reviewed the history and exam detailed in the note. I agree with the medical decision making with the following comment(s): * SHAUN Tovar - 11/13/2023 1:08 PM EDT Discharge Planning Patient Assessment Admission Assessment Patient Assessment Completed: Initial Anticipated discharge disposition: Intermediate Facility Reason for Admission: Stroke Workup Is [...] Spouse: Yes Name and Contact information: José Grimaldoncer - [phone] Adult Child(sole), List All Adult Children: Yes Name and Contact information: Agustin Silvia - [phone] Would you like to add additional adult [...] Is the patient from a facility or custodial?: No Patient lives with: Spouse or Partner [...] Anticoagulation? 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 : No Employed?: Disabled Coping/Stress Concerns about patient s coping and stress?: No Concerns about patient s caregiver s coping and stress?: No Values and Beliefs Cultural or amish practices that may impact discharge planning and/or medical care?: No Initial Discharge Planning Anticipated discharge disposition: Intermediate Facility Transportation Available for Discharge: Ambulance, Family [...] work. CM will follow up. BILL Tovar, SHAUN Mr Teacher Available by Secure Chat * Cherelle Carter MD - 11/13/2023 4:52 AM EDT Images from the original note were not included. 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, 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 IADL History [...] Edema: Mobility Assessment: Supine to Sit Mobility [place] Level: Supine->Sit: supervision Bed Features/Set-up: Supine->Sit: Head of bed elevated Sit to Supine Mobility [place] Level: Sit->Supine: supervision Bed Features/Set-up: Sit->Supine: Head of bed elevated Transfer Assessment: Sit to Stand Transfer [place] Level: Sit->Stand: contact guard assist Assistive Device: Sit->Stand: 2 wheeled walker, gait belt Stand to Sit Transfer [place] Level: Stand->Sit: contact guard assist Assistive Device: Stand->Sit: gait belt, 2 wheeled walker Bed-Chair Transfer [place] Level: Bed<->Chair: contact guard assist Assistive Device: Bed<->Chair: gait belt, 2 wheeled walker Toilet Transfer [place] Level: Toilet: minimum assist (75% patient effort) Assistive Device: Toilet: gait belt, 2 wheeled walker Functional Mobility: Functional Mobility [place] Level: Functional Mobility/Gait: minimum assist (75% patient effort) Assistive Device: Functional Mobility/Gait: 2 wheeled walker, gait belt Functional Mobility Distance: Distance needed for common household mobility Outcome Score(s): CURRENT [facility] Daily Activity Inpatient Short Form Putting on/Taking Off Lower Body Clothin - A Little Assistance Bathin - A Little Assistance Toiletin - A Little Assistance Putting on/Taking Off Upper Body Clothin - A Little Assistance Groomin - A Little Assistance Eatin - No Assistance CURRENT [facility] Activity Raw Score: 19 CURRENT [facility] Activity Functional Limitation/Modifier: 42.80% Currently Impaired in [...] the current Occupational Therapy Discharge Summary. 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, 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 Objective/Observation: Vitals/Vitals [...] Objects: normal performance Mobility Assessment: Rolling/Turning Mobility [place] Level: Rolling/Turning: independent Scooting Bridging Mobility [place] Level: Scooting/Bridging: not tested Supine to Sit Mobility [place] Level: Supine->Sit: supervision Bed Features/Set-up: Supine->Sit: Head of bed elevated Sit to Supine Mobility [place] Level: Sit->Supine: supervision Bed Features/Set-up: Sit->Supine: Head of bed elevated Balance: Sitting Balance Static Sitting-Level of Assistance: Contact guard Dynamic Sitting-Level of Assistance: Minimum assistance Sitting Balance Skilled Intervention/Details: posterior LOB with decreased awareness by pt Standing Balance Static Standing-Level of Assistance: Contact guard Dynamic Standing-Level of Assistance: Minimum assistance Standing-Balance Support: Gait belt, 2 wheeled walker Transfer Assessment: Sit to Stand Transfer [place] Level: Sit->Stand: contact guard assist Assistive Device: Sit->Stand: gait belt, 2 wheeled walker Stand to Sit Transfer [place] Level: Stand->Sit: contact guard assist Assistive Device: Stand->Sit: gait belt, 2 wheeled walker Bed-Chair Transfer [place] Level: Bed<->Chair: not tested Gait/Functional Mobility: Gait Assessment [place] Level: Gait: minimum assist (75% patient effort) [...] currently uses wheelchair?: No Stairs: Stairs Assessment [place] Level: Stair Negotiation: not tested Outcome Score(s): CURRENT [facility] Basic Mobility Inpatient Short Form Turning over [...] railin - A Lot of Assistance CURRENT [facility] Mobility Raw Score: 18 CURRENT [facility] Mobility Functional Limitation: 46.58% Impaired in Basic [...] PT Goals Plan of Care by Hilary Douglas PT at 11/12/2023 1:16 PM Version 1 [...] Physical Therapy [facility]. [facility] Miscellaneous Notes* Nursing Notes - Emilee Au RN - 11/28/2023 10:24 AM EDT Discharge order received. Called report to facility. AVS and AMRILIN printed and faxed to facility. Transport set up for 1400 per CM note. 1415: Ambulance transport arrived. PIV removed per protocol. 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, treating plant pumper & glasses) * Plan of Care - [...] Problem: PT - Outcome Measure Goals Goal: AMPAC - Patient will demonstrate an improvement in [...] Problem: PT - Outcome Measure Goals Goal: [facility] - Patient will demonstrate an improvement in [...] Problem: PT - Outcome Measure Goals Goal: [facility] - Patient will demonstrate an improvement in AM-PAC Inpatient Mobility Short Form of atleast 4.5 points (MDC), in order to demonstrate an improvement in functional mobility. Outcome: Progressing Problem: Oral Intake Inadequate Goal: Improved Oral Intake Outcome: Progressing * Plan of Care - Macey Gleason PT - 11/24/2023 12:53 PM EDT Problem: [...] Problem: PT - Outcome Measure Goals Goal: [facility] - Patient will demonstrate an improvement in [...] Patient unable to pass bedside swallow with DEVELOPER DESIGNER. * Plan of Care - Shekhar Escamilla, PT - 11/21/2023 1:43 PM EDT Problem: [...] of Care Sp TCAR on 11/15 and C on 11/19. ERT and stroke code called [...] Brief Cardiac Catheterization Procedure Note Yony Vega ([id number]) Pre Procedural Diagnosis NSTEMI (non-ST elevated myocardial infarction) [I21.4] Post Procedural Diagnosis Obstructive CAD Procedure Performed Left heart catheterization, Coronary angiogram, and Bypass angiogram Access Site/Hemostasis Right femoral artery, Sheath left in Findings Left Ventricular End Diastolic Pressure: Elevated Left Ventricular Ejection Fraction: Not assessed Preliminary Results of Angiography Obstructive nenana CAD (occluded RCA, occluded LM) 3 patent [...] - Fellow Procedural Staff Sedation Nurse: Quynh Foote RN; Jose Eduardo Barreto RN Documenter: Regina Flores RN; RT Lucio Full report to follow Karla Gonzalez MD November 20, 2023 6:45 PM * Nursing Notes - Shekhar Soto RN - 11/20/2023 5:38 PM EDT This RN called pt spouse José to notify her that 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 * Plan of Care - Catalina [...] 186 and rechecked it now and it [id number]. Go ahead and give NPH per ADRIÁN [...] to continue trending trops. Per cards note [facility] planning for next week Plan - transfer to ICU - 20 lasix IV - place on CPAP Dr. Donnelly was made aware of plan Noah Blanchard MD * Nursing Notes - Danae Hernandez RN - 11/18/2023 3:37 PM EDT 0810: pt removed from CPAP and transitioned to 6L high flow NC without difficulty. notified of pt intermittent confusion and disorientation to place, time and situation. MD assessed pt at bedside. IS encouraged and performed by pt. 1315: 7L high flow NC to maintain oxygen 92% or greater per order, notified. 1505: requires 8L high flow NC. 1523: pt requires 9L high flow NC, notified. 20mg IV lasix given. Appropriate positioning [...] Progressing * Plan of Care - Yousif Mera, PT - 11/17/2023 9:29 AM EDT Problem: [...] Problem: PT - Outcome Measure Goals Goal: [facility] - Patient will demonstrate an improvement in [...] of text page to MD Joce Jimenez front maker for Marty PADILLA Spencer. pt arrive to [facility]. * Op Note - Boom Ford MD [...] time >250 seconds prior to arterialaccess. A 4-Albanian micropuncture set was used, puncturing the artery [...] - 11/16/2023 1:48 PM EDT Yony Vega ([id number]) PRE OPERATIVE DIAGNOSIS Carotid stenosis [I65.29] POST OPERATIVE DIAGNOSIS Carotid stenosis [I65.29] PROCEDURE PERFORMED Procedure(s) (LRB): PLACEMENT INTRAVASCULAR STENT CERVICAL CAROTID ARTERY OPEN (Right) PRIMARY CLOSURE Yes INTRAOPERATIVE FINDINGS Right TCAR, 6x30 stent, Left femoral vein access. SURGEON Surgeons and Role: * Boom Ford MD - Primary * Iris Donnelly MD - Fellow ANESTHESIOLOGIST Anesthesiologist: Taryn Cardona MD; Patito Jackson MD Survey Researcher: STEFFEN El SURGICAL STAFF Assistant Track And Field Coach: Dania Corbin RN; Lee Og RN Clam Dredger: May Rudd; Etienne Brady Scrub Person: Wade [...] for the [facility]. Together we reviewed the signs and symptoms [...] to reach this person. I scheduled Yony Vega for a follow-up visit with our neurology department, collaborating directly with the patient to ensure their availability and preferred location. I then left my card assuring the patient and/or family that they should feel free to contact me with any questions. 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 - Please call front maker Neurovascular PULLBOAT ENGINEER or resident for further questions. -No further recommendations from a Neurovascular standpoint. Neurovascular will sign off. Thank youfor allowing us to participate in the care of Yony Grimaldoncer, if you have any further questions please [...] Outcome: Progressing * CDU Provider Note - Trixie Cole APRN-ARTI - 11/12/2023 10:52 AM EDT DEPARTMENT OF [...] TONSILLECTOMY 1984 COLONOSCOPY DIAGNOSTIC LARGE BOWEL SURGERY MEDICATIONS GIVEN IN THE ED Medications aspirin chewable tablet 81 mg (81 mg Oral Given 11/12/23804) Clopidogrel (PLAVIX) tablet 75 mg (75 mg Oral Given 11/12/23 08) Acetaminophen (TYLENOL) tablet 650 mg (has no [...] Resource Strain: Low Risk (05/27/2020) Received from [facility] Overall Financial Resource Strain (CARDIA) Difficulty of Paying Living Expenses: Not hard at all Food Insecurity: No Food Insecurity (05/27/2020) Received from [facility] Hunger Vital Sign Worried About Running Out of Food in the Last Year: Never true Ran Out of Food in the Last Year: Never true Transportation Needs: No Transportation Needs (05/27/2020) Received from [facility] PRAPARE - Transportation Lack of Transportation [...] performed during the hospital encounter of 11/12/23 [facility] 7 - ED Result Value [...] Auto 1.29 0.83 - 3.57 K/uL Abs Pacific Auto 0.70 0.24 - 0.93 K/uL Abs [...] 15 mg/dL = Small (A) Negative Specific [place] Urine 1.027 1.001 - 1.035 Blood Urine [...] Hernandez, 11/12/2023 10:52 AM documented [facility] Consult note* Michael Harris MD - 11/19/2023 11:33 AM EDTAssociated Order(s): IP CONSULT TO ENDOCRINOLOGY - DIABETES Images from the original note were not included. [facility] Inpatient Diabetes Consult - Team 2 *For provider front maker, please use [facility]Genda->[facility]-> Internal Medicine-> Endocrinology & Metabolism-> Team 2 [...] care. If you have questions please use [facility]enda->[facility]-> Internal Medicine-> Endocrinology & Metabolism-> Team 2 to identify front maker pager. We will follow glucose trends with [...] PAD s/p R pop,R anterior tibial angioplasties (2015) and L anterior tibial, L peroneal, and L popliteal angioplasties (2016) who [facility] with L facial [...] HGBA1C 7.8 (H) 11/13/2023 Diagnosis (aprox date): 2018 Outpatient Clinic: PCP [...] range typically Immunization History Administered Date(s) Administered 0539-4018 COVID-19 monovalent vaccine, mRNA, Pfizer, 0.3 ML [...] TONSILLECTOMY 1985 COLONOSCOPY DIAGNOSTIC LARGE BOWEL SURGERY No family [...] ABSENT 11/12/2023 No results found for: TSH, [id number], LZM23RQB, TSHBASELINE, TSHULTRASEN, T3FREE, I5OOYXGUE, Q7RLIOG, N3MJICSK, T4FREE, TPOAB No results found for: CREATURINE, [...] 11/18/2023 NOT DETECTED NOT DETECTED Final Comment: [facility] Negative results do not preclude [...] SARS-CoV-2 nucleic acid. No results found for: [id number] * Etienne Greenfield MD - 11/13/2023 11:01 [...] largely unknown at this time. His current GKZ6ZY8-JAGA score is noted to be at 6 points with the points given for age, hypertension, history of stroke, history of vascular disease, and diabetes history. - Appears to currently be in sinus rhythm, would increase to coreg 12.5 mg BID which will also address his poorly controlled hypertension. - Anticoagulation: Givena [id number] at 6, would recommend heparin with bridge to doac. Timing should be coordinated from a vascular perspective to when this should be started and if there are any contraindications to AC from a neurologic perspective. - He should also go home with a mobile cardiac telemetry for monitoring his burden of atrial fibrillation as well, which could be followed up by his local spring tacker. - Would recommend echocardiogram as well to [...] MD Department of Internal Medicine Resident [facility] HISTORY: It was my pleasure to see . Yony eVga in consultation at the [facility] on 11/13/2023 for evaluation of his Pre-operative [...] capsule by mouth daily. Ergocalciferol 1.25 MG (41201 UT) capsule Take 1 capsule by mouth [...] CAre everywhere there are notes fro hiscardiologist tht report an echocardiogram from 09/2021 with an [...] medical decision making. Joe Bean MD, PhD, [facility] National Account Representative, Cardio-Oncology Division of Cardiology * Waqar Yao MD - 11/12/2023 4:23 PM EDTAssociated Order(s): IP CONSULT TO SURGERY - VASCULAR Images from the original note were not included. Peripheral Vascular Surgery Initial Consult Evaluation Note: Consult: 11/12/2023, 3:23 PM Reason for Consult: Symptomatic R Carotid Stenosis (>70%) Assessment and Plan: 68 y.o. male with past medical history notable for CAD s/p CABG in 2008 ([facility]) and stent in 2014, previous CVA [...] patient was seen and discussed with Dr. Michel, PVS chief-resident front maker. Thank you for allowing us to take part in the management of this patient. Waqar Yao MD History of Present Illness: Yony Vega is a 68 y.o. male with past medical history notable for CAD s/p CABG in 2008 ([facility]) and stent in 2014, previous CVA c/g L-sided numbness 2/2 RCIA internal carotid artery s/p CEA ~2011,colorectal cancer s/p APR w/ LPLND (2019), and reported PAD s/p R pop, R anterior tibial angioplasties (2014) and L anterior tibial, L peroneal, and L popliteal angioplasties (2016) who [facility] with L facial [...] TONSILLECTOMY 1985 COLONOSCOPY DIAGNOSTIC LARGE BOWEL SURGERY Social History [...] study was sent from an outside facility [facility] for support of clinical care of the [...] and examined and I agree with the [employer] note and plan which I have reviewed [...] have reviewed and verified this with the [employer]/ADRIÁN so that it accurately reflects our care. [...] No acute changes. WALLACE with R sided rastafari tenderness. 3 months for bad ones. Woke him up from sleep. Telestroke by Dr. Gaffney CTH/CTA:no LVO Recommended [facility] ED [...] with LPLND on 05/26/20 for rectal cancer [id number] s/p chemoradiation 08/13/2019, completed ELMA 02/24/2020, was [...] LOC Questions (Provider) 0 filed on 11/12/2023 0329 NIH LOC Commands (Provider) 0 filed on 11/12/2023 032 NIH Best Gaze (Provider) 0 filed on 11/12/2023 032 NIH Visual (Provider) 0 filed on 11/12/2023 0329 NIH Facial Palsy (Provider) 0 filed on 11/12/2023 0329 NIH Left Arm Motor (Provider) 0 filed on 11/12/2023 0329 NIH Right Arm Motor (Provider) 0 filed on 11/12/2023 0329 NIH Left Leg Motor (Provider) 0 filed on 11/12/2023 0329 NIH Right Leg Motor (Provider) 0 filed on 11/12/2023 032 NIH Limb Ataxia (Provider) 0 filed on 11/12/2023 0329 NIH Sensory (Provider) 0 filed on 11/12/2023 0329 NIH Best Language (Provider) 0 filed on 11/12/2023 0329 NIH Dysarthria (Provider) 0 filed on 11/12/2023 0329 NIH Extinction and Inattention (Provider) 0 filed on 11/12/2023 0329 NIH Total Score (Provider) 0 filed on 11/12/2023 0329 Is NIH=0 Within 180 min of Last Known Well Time? -- Stroke Scales Flowsheet Row Most Recent Value ABCD2 SCORE (Calculated) 5 filed on 11/12/2023 0339 NIH Total Score (Provider) 0 filed on 11/12/2023 0329 Past Medical History Medical History: Past Medical [...] HERNIA REPAIR Left 2005 inguinal OTHER SURGICAL 2004 graft- burn right hand HERNIA REPAIR 1997 umbilical OTHER SURGICAL 1991 fx right arm TONSILLECTOMY 1984 COLONOSCOPY DIAGNOSTIC LARGE BOWEL SURGERY SOCIAL HISTORY: [...] mouth daily. Historical Provider Ergocalciferol 1.25 MG (58959 UT) capsule Take 1 capsule by mouth [...] day before your procedure. 07/19/23 11/22/23 Angeli Zarate, Neomycin 500 MG tablet Take 2 tablets [...] capsule by mouth daily. Ergocalciferol 1.25 MG (04446 UT) capsule Take 1 capsule by mouth [...] Gongora - + Babinski Down Down Coordination: Sqomwz-vx-uneu intact bilaterally. Sopc-kh-humg intact bilaterally. Sensation: intact to light touch throughout without extinction. Gait: deferred Laboratory Results Diagnostics/Procedures: Labs-CBC WBC/Hgb/Hct/Plts: 6.24/13.4/41.6/265 (11/12 235) Labs-Chem 7([facility]) Bun/Creat/Cl/CO2/Glucose: 10/0.77/100/30/96 (11/12 235) Na/K+/Phos/Mg/Ca: 139/3.7/--/--/-- (11/12 235) Labs-Coags Additional Labs Lab Results Component Value Date CHOLESTEROL 180 11/12/2023 TRIG 188 (H) 11/12/2023 HDL 33 (L) 11/12/2023 LDLCALC 109 (H) 11/12/2023 Labs-Hemoglobin A1C No results found for: HGBA1C Imaging CT Stroke Head:OS[facility] no acute CTA Brain/Neck: o[facility] Assessment/Impression Yony Grimaldoncer 68 yo male with PMH of Strokes [...] possible migraine WALLACE with associated intermittent R rastafari tenderness without acute changes in his blurry [...] and statin. Consult NSG. documented [facility] Hospital Discharge instructions* Discharge Instructions* EUSEBIO Graff - 11/16/2023 9:04 AM EDT Please take [...] all ordered medications [] Avoid non-prescription or swri-zlr-eelamkx medication not cleared by your physician [x] [...] may call the neurovascular doctors office at [phone], if you have questions Mon-Mon between 8:30 am and 4:30 pm. - For off hours or the weekend you may call the office or the hospital dimpling machine operator at and ask for the stroke resident front maker to be paged. - If you have any other questions or needs, please call Zayra FERNANDEZ, RN, Transitions of Care Nurse at [phone] Mon-Mon between 7:00am and 3:00pm. - Additional assistance may be found by reaching out to our Case Management Office at [phone]. *In the event of an Emergency: If you have a physical or psychiatric emergency call [phone] or go to your local emergency department. You should also call your outpatient provider's emergency number. Other reference numbers: [facility] Intake [facility] at [phone]; [facility] at [phone]; or Suicide Prevention Hotline at 548-874-0990. *Helpful phone numbers: Free Crisis Hotline: 6-499-501-TALK ( ) Suicide Hotline: 566.334.7604 Seniors Suicide Hotline: 393.871.8065 [facility] Youth: 387.749.3404 Mental Health of [place]: 280.911.6933 (free counseling) [employer] Access Hotline: 007-109-EWYS (538-565-2692) 24-hour crisis text hotline: Text the word 4hope to 192-679 for crisis support. Texting this number is [...] qualify for Medicaid/public assistance: The [facility] Department of Job and Family Services can now process newman (TANF), food (SNAP) and Medicaid Applications over the phone. Please call [phone] ([phone]) and apply over the phone or apply online at www.benefits.[place].gov. Monday-Monday 8am-12pm noon. Medication Assistance Programs [employer] members can buy 100+ common prescriptions for FREE, $3 or $6. Annual membership is $36 for individuals and $72 for families (up to 6 people, including pets). Sign up online or enroll at your nearest pharmacy! Red Blue Voice web site can provide a significant number of coupons for medications at a much lower may. [place] Department of Aging The Department of Aging administers programs and services to meet the needs of older [place]. Services and resources offered per county may include transportation, housekeeping, meals and nutrition, personal care, case management, safety monitoring, home medical equipment, legal services, manager financial services, health and wellness, education, caregiver support, respite care, etc. Call to be connected to the area agency on aging serving your community or visit aging.[place].gov/find-services. Request a consultation with a community resource expert at ltssi.age.[place].gov/ [facility] Stroke Support [facility] Stroke Support Group is for stroke survivors, friends, and family members. Meets on the Monday of each month from 6:30pm-7:30pm at [facility] ([address]; [place] [address]). Contact Blanca Field, at [phone] or [email or web address]. If you are outside of the [place] area, contact The [place] Stroke Association at www.stroke.org or 0-371-9-STROKE or for supports groups in your area. You may also refer to the Stroke Education booklet you received as part of your stroke education while you were a patient for additional resources. The [facility] recommends all recently hospitalized patients call [...] at night. Do not do the following: -transmission superintendent such as vacuuming, or heavy cleaning -Strenuous [...] once you arrive home or to the assisted facility. Sit upright on the edge of [...] evening, weekend, or holiday hours, please call: -[facility] and The [facility] dimpling machine operator at [phone]. -[facility] dimpling machine operator at [phone] Ask the dimpling machine operator to page the on-call doctor for [...] Patient Stroke Resources: [facility] Stroke Support The [facility] Stroke Support Group is for stroke survivors, friends, andfamily members. Meets every Monday from 12:00PM to 1:00PM at [facility]), [address] [place] [address] Haydee Betancourt, at [phone] option #4. If you are outside of the [facility], contact The [place] Stroke Association at www.strokeassociation.org or -stroke(248170) for supports groups in your area. Also refer to the Stroke Education booklet you received as part of your stroke education while you were a patient. *If you need additional medical records or imaging disks please contact: Medical Information Management Department [facility] PH: [phone] M-F: 7am-12:30am; Sat: 8am-12pm *In the event of an Emergency: If you have a physical or psychiatric emergency call 911 or go to your local emergency department. You should also call your outpatient provider's emergency number. Other reference numbers: [facility] Intake [facility] at [phone]; [employer] at 901-487-3278; or Suicide Prevention Hotline at 528-931-5624. *Helpful phone numbers: Free Crisis Hotline: 1-490-673-TALK ( ) Suicide Hotline: 611.493.8235 Seniors Suicide Hotline: 672.149.4328 [facility] Youth: 940.915.6910 Mental Health of [place]: 720.920.2412 (free counseling) [employer] Access Hotline: 552-532-KFUT (264-820-2272) 24-hour crisis text hotline: Text the word 4hope to 674-832 for crisis support. Texting this number is [...] qualify for Medicaid/public assistance: The [facility] Department of Job and Family Services can now process newman (TANF), food (SNAP) and Medicaid Applications over the phone. Please call [phone] ([phone]) and apply over the phone or apply online at www.benefits.[place].gov. Monday-Monday 8am-12pm noon. Medication Assistance Programs [employer] members can buy 100+ common prescriptions for FREE, $3 or $6. Annual membership is $36 for individuals and $72 for families (up to 6 people, including pets). Sign up online or enroll at your nearest pharmacy! -[employer], web site can provide a significant number [...] you take each medicine. Include all prescription nmpkoms-gkz-feoorts medicines, vitamins, and supplements. Keep this list [...] plan your refills so that you can hop picker all your medicines at the same time. [...] sent through Care Everywhere. * Atrial Fibrillation (Mauritanian) * Blood Thinners: How to Prevent Bleeding ([facility]) (Mauritanian) * clopidogrel (Mauritanian) * apixaban (Mauritanian) documented in this encounterOS[facility] Emergency department Note* Lilia Srivastava RN [...] performed during the hospital encounter of 11/12/23 [facility] 7 - ED Result Value [...] Auto 1.29 0.83 - 3.57 K/uL Abs Pacific Auto 0.70 0.24 - 0.93 K/uL Abs [...] 15 mg/dL = Small (A) Negative Specific [place] Urine 1.027 1.001 - 1.035 Blood Urine [...] the patient with the attending, Dr. Thomson. EUSEBIO Hernandez 11/12/232044 * Isabella Corral RN - 11/12/2023 7:55 AM EDT Received report and reviewed patient's chart. Plan of care discussed with EDOU Attending and Midlevel Provider. Plan: MRI brain, Carotid dopplers. This CM will remain available to assist with furtherpatient needs. Isabella Corral RN, [facility] Clinical Mr Teacher Emergency Department [phone] * Joselito Starks RN - 11/12/2023 4:33 [...] HERNIA REPAIR Left 2005 inguinal OTHER SURGICAL 2004 graft- burn right hand HERNIA REPAIR 1998 umbilical OTHER SURGICAL 1991 fx right arm TONSILLECTOMY 1984 COLONOSCOPY DIAGNOSTIC LARGE BOWEL SURGERY BP 194/79 [...] performed during the hospital encounter of 11/12/23 [facility] 7 - ED Result Value [...] Auto 1.29 0.83 - 3.57 K/uL Abs Pacific Auto 0.70 0.24 - 0.93 K/uL Abs [...] capsule by mouth daily. Ergocalciferol 1.25 MG (25824 UT) capsule Take 1 capsule by mouth [...] Resource Strain: Low Risk (05/27/2020) Received from [facility] Overall Financial Resource Strain (CARDIA) Difficulty of Paying Living Expenses: Not hard at all Food Insecurity: No Food Insecurity (05/27/2020) Received from [facility] Hunger Vital Sign Worried About Running Out of Food in the Last Year: Never true Ran Out of Food in the Last Year: Never true Transportation Needs: No Transportation Needs (05/27/2020) Received from [facility] PRAPARE - Transportation Lack of Transportation [...] decision making process. This note dictated using dINK voice recognition software. Attempts at proofreading were made, but errors may occasionally still occur. Jordan Cardenas MD Resident 11/12/23 0512 documented in this encounterOS[facility] Discharge summary Author Kenzie Britton [facility] 2023 11:55pm Note Date/Time 2023 3:27 pm [facility] Medical Records Department [address] [place] [address] Emergency Department Summary 11/11/23 MR#: [id number] Acct: [id number] Name: YONY VEGA Rep #:[id number] : [...] from its origin to the basilar tip. [facility] Medical History Anxiety disorder Arthritis Atherosclerosis of [...] of secondary infection Extremity Extremity Narrative: Normal muqqhj-gp-ztyg and okkb-zz-ouho exam General Extremety ED: Negative for edema General Extremity: Negative for edema Neuro oriented x3 and CN's II-XII intact bilaterally [place] Coma Scale: document GCS findings Spontaneous Obeys [...] I did have her hospitalist on duty ari speak with [facility] neurology. Patient will be [...] % (Auto) 67.8 Lymph % (Auto) 19.9 Pacific % (Auto) 10.8 H Eos % (Auto) [...] Clarity Clear Urine pH 7.0 Ur Specific [place] 1.010 Urine Protein 15 H Urine Glucose [...] Signed: Alexis Madrid MD at 16:17 EDT Reading Location ID and State: [facility] / [place] , Service support , EKG Initial EKG: Attestation: I personally reviewed and interpreted this EKG as follows: Comments: Normal sinus rhythm ventricular rate of [address] abnormalities noted anterolateral. These do appear new since March 2023. Management Discussion w/another healthcare provider: Hospitalist (Dr. Robertson), Mobile Equipment Mechanic ([facility] Stroke Neurology (Dr. Navarro)) and Radiologist [...] Disposition Disposition: Acute Care Hospital Discharge Location: [facility] What to do if you have Problems For any increased pain, shortness of breath, bleeding, nausea or vomiting, chestpain, or any unexpected problems, contact your Primary Care Provider. Call [facility] ([phone]) or report to the closest Emergency Room. Call 911 if necessary. 11/11/23 6501 <Electronically signed by Kenzie Britton DO> Cosigner Signature (if applicable): CC: Dr. Kendy Modi MD ~ Signed [facility] Work Phone: [phone]) 491-974912-13-2023 History of Present illness Narrative* Angeli Zarate DO - 07/19/2023 11:30 AM EST Chief [...] APR with LPLND on 05/26/20 for rectalcancer [id number] s/p chemoradiation 08/13/2019, completed ELMA 02/24/2020, was [...] daily., Disp: , Rfl: Ergocalciferol 1.25 MG (01855 UT) capsule, Take 1 capsule by mouth [...] with LPLND on 05/26/20 for rectal cancer [id number] s/p chemoradiation 08/13/2019, completed ELMA 02/24/2020, was [...] care was more than 50% of the ipbl-yn-lqpe encounter with this patient. Total visit time was 20 minutes including documentation, care coordination, order placement, discussing treatment options and answering questions. Angeli Zarate DO National Account Representative Pediatric and Adult Colorectal Surgery * Stefani Reed APRN-JUNIOR ANALYST - 07/19/2023 11:30 AM EST COLORECTAL SURGERY CLINIC NOTE BRIEF HISTORY: Patient was recently seen by Dr. Galarza 05/11/2022 for robotic APR with LPLND on 05/26/20 for rectal cancer [id number] s/p chemoradiation 08/13/2019, completed ELMA 02/24/2020, was [...] of Surgery Division of Colorectal Surgery * Bandar George RN - 07/19/2023 11:30 AM [...] to the patient's satisfaction. documented in this encounterK[facility] Instructions* Patient Instructions* Bandar George RN - [...] not red, orange, or purple in color. Lemon-levelock is preferred. You may need to pour [...] your surgeon s office. documented in this encounterOS[facility]11-27-2023 Miscellaneous Notes* Telephone Encounter - Jazmine Pang LPN - 07/03/2023 3:23 PM EST Please send short Rx to local pharmacy. Jazmine Pang LPN documented [facility] Miscellaneous Notes* Telephone Encounter - Jazmine Pang LPN - 06/26/2023 7:43 AM EST This was discontinued 06/21/2023 by Everardo. Jazmine Pang LPN documented in this [facility]Mer[facility] History of Present illness Narrative* Everardo Yusuf APRN.JUNIOR ANALYST - 06/21/2023 2:05 PM EST Chief Complaint Patient presents with: Established Patient HPI: Isaias Vega is a 67 year old male who presents here today for follow up rectal cancer. Per Dr. 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 Biomarkers: Mismatch repair ICH: MLH-1 (M1) positive MSH2 (25D12) positive MSH6 (44) positive PMS2 ([id number]) positive Result of Microsatellite Instability Study -Negative [...] CEA and b/l leg angioplasty. Presented to [facility] on 05/02/2019 with an [...] blood cell transfusion. Patient was referred to [facility] and underwent evaluation by Dr. Galarza on [...] of the left arm. It affected hand sleep tech and some strength in elbow flexion and [...] a wheelchair when going to medical appointments). [place] well the remainder of that week but [...] in-situ hybridization tests have been determined by [facility] Pathology and Laboratory Medicine [place] ([facility]) in a manner consistent with CLIA requirements. One or more of these tests have not been cleared or approved by the FDA. 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 here today with his . [...] 4.00 k/uL 0.79 (L) 1.07 0.97 (L) Pacific% % 10.0 10.4 10.5 Abs Pacific <0.87 k/uL 0.53 0.71 0.58 Eosin% % [...] cancer (HCC) - ICD9: 154.1, ICD10: C20 [id number] stage III invasive adenocarcinoma of the lower [...] necessary for today's visit. Everardo Yusuf APRN.CNP * Qiana Harris RN - 06/21/2023 2:02 PM EST Isaias Vega is here for an appointment today with Everardo Yusuf APRN.CNP and experienced a fall during his clinical visit. The patient had witnessed fall. Location of fall: [facility] Brief Factual Description: Patient fell landing [...] to room left opened documented in this encounterMer[facility]11-09-[facility] History of Present illness Narrative* Bony GordonBozena, RT(R) - 06/15/2023 3:20 PM EST Radiology [...] Exam(s) Completed: Chest Abdomen Pelvis SIGNATURE: RT Kavon(José) PATIENT NAME: Isaias Vega DATE: June 15, 2023 TIME: 4:06 PM documented in this encounterMer[facility]10-20-2023 Miscellaneous Notes* Telephone Encounter - Melanie Rizvi - 05/26/2023 1:24 PM EDT Spoke with patient and scheduled. Melanie Rizvi * Telephone Encounter - Everardo Yusuf APRN.CNP - 05/26/2023 11:43 AM EDT Yes, CT chest/abd/pelvis/OV/CBC/CMP/CEA soon. Orders in. Thank you. Everardo Yusuf APRN.ARTI * Telephone Encounter - Kimberlyn Calabrese - 05/26/2023 10:48 AM EDT Patient called asking if he is to have any kind of follow up. Patient was in office 12/[address]10[facility] History of Present illness Narrative* Angeli [...] APR with LPLND on 05/26/20 for rectalcancer [id number] s/p chemoradiation 08/13/2019, completed ELMA 02/24/2020, was [...] 2021 CORONARY STENT PLACEMENT 2014 HEART CATHETERIZATION 2015 CORONARY ARTERY BYPASS GRAFT [...] thought content normal. Assessment and Plan Yony Vega is a 67 y.o. male presents with a history of Referred by Kellee Gongora/PCP Dr. Kendy Modi for colostomy prolapse. Patient followed by Dr. Galarza 05/11/2022 for robotic APR with LPLND on 05/26/20 for rectal cancer [id number] s/p chemoradiation 08/13/2019, completed ELMA 02/24/2020, was [...] care was more than 50% of the qiop-ip-jrlg encounter with this patient. Total visit time was 40 minutes including documentation, care coordination, review of Radha progress notes from 05/2022, CT abdomen 11/22/2021, 03/15/2022 MRI liver, discussing treatment options and answering questions. Angeli Zarate DO National Account Representative Pediatric and Adult Colorectal Surgery [facility] Instructions* Patient Instructions* Vanessa Simon RN - 05/24/2023 10:00 AM EDT Call the office [phone] scan done at [facility] so that we can geta copy of the report and the images before your next appointment with Dr Zraate in July documented in [facility] encounterK[facility] Discharge summary Author Catherine [facility] March 12, 2023 1:55pm Note Date/Time March 12, 2023 11: 50[facility] Medical Records Department [address] [place] [address] Discharge Summary 03/12/23 1149 MR#: [id number] Acct: [id number] Name: YONY VEGA Rep #:[id number] : 1955 67 From: Catherine Barton MD PCP: Dr. Kendy Modi MD Status:ADM CRICKET Location: [place] [address] Providers Date of Admission: 03/10/23 Date of [...] Orientation: awake and alert Coordination / Balance: ytgwat-fn-ltnz test normal Motor Exam: strength 5/5 throughout [...] % (Auto) 62.5, Lymph % (Auto) 22.8, Pacific% (Auto) 12.2 H, Eos % (Auto) 2.1, [...] tablet,chewable 81 mg PO DAILY Patient Comments: [employer] insulin detemir U-100 100 unit/mL (3 mL) [...] Self Care Charges/Coding Visit Charges Inpatient E&M: 30150 Disch Hosp >30min 03/12/23 1355 <Electronically signed by Catherine Barton MD> Cosigner Signature (if applicable): CC: Dr. Kendy Modi MD; Dr. Catherine Barton MD~ Signed [facility] Work Phone: 1(701) 658-495908-06-2023 Discharge summary Author Catherine [facility] March 12, 2023 11:49am Note Date/Time March 12, 2023 11: 49am [facility] Medical Records Department [address] [place] [address] Instructions for Home/Discharge Instructions 03/12/23 1149 MR#: [id number] Acct: [id number] Name: YONY VEGA Rep #:[id number] : [...] 81 mg PO DAILY Patient Comments: heart [facility] insulin detemir U-100 100 unit/mL (3 mL) [...] MD; Dr. Matt Penny MD ~ Signed [facility] Work Phone: 1(762) 920-637808-05-2023 Progress note Author [facility] March 11, 2023 1:45pm Note Date/Time March 11, 2023 10: 54am [facility] Medical Records Department [address] [place] [address] Progress Note 03/11/23 1041 MR#: [id number] Acct: [id number] Name: YONY VEGA Rep #:[id number] : 1955 67 From: Catherine Barton MD PCP: Dr. Kendy Modi MD Status:ADM CRICKET Location: [place] [address] Subjective Subjective Patient seen and examined. He [...] 03/10/23 03/11/23 23:59 23:59 23:59 Intake Total 2000 / 1999 1000 / 1000 Output Total [...] 79.4 H, Lymph % (Auto) 10.6 L, Pacific % (Auto) 8.5, Eos % (Auto) 0.5, [...] Clarity Clear, Urine pH 6.0, Ur Specific [place] 1.015, Urine Protein 15 H, Urine Glucose [...] (Auto) 68.5, Lymph % (Auto) 18.7 L, Pacific % (Auto) 9.6, Eos % (Auto) 2.4, [...] tendon reflexes 2+ bilaterally Coordination / Balance: yrrwyd-ik-kjkq test normal Motor Exam: strength 5/5 throughout [...] prophylaxis: heparin Charges/Coding Visit Charges Inpatient E&M: 14311 Subs Hosp L2 03/11/23 1345 <Electronically signed by Catherine Barton MD> Catherine Barton MD Cosigner Signature (if applicable): CC: ~ Signed [facility] Work Phone: 1([phone]) 767-463908-04-2023 Discharge summary Author Citlali Zurita [facility] March 10, 2023 7:49pm Note Date/Time March 10, 2023 12: 17pm [facility] Medical Records Department [address] [place] [address] Emergency Department Summary 03/10/23 MR#: [id number] Acct: [id number] Name: YONY VEGA Rep #:[id number] : 1955 67 From: Citlali Zurita MD PCP: Dr. Kendy Modi MD Status:ADM CRICKET Location: [address] History of Present Illness Chief Complaint: Dizziness [...] but was never given an actual diagnosis. [facility] Medical History Anxiety disorder Arthritis Atherosclerosis of [...] Medical decision making narrative: Patient placed on equipment monitor phototypesetting. EKG obtained to evaluate for cardiac arrhythmia/ischemia. [...] 79.4 H Lymph % (Auto) 10.6 L Pacific % (Auto) 8.5 Eos % (Auto) 0.5 [...] Clarity Clear Urine pH 6.0 Ur Specific [place] 1.015 Urine Protein 15 H Urine Glucose [...] Provider] - Disposition Disposition: Acute Care Hospital [facility] What to do if you have Problems For any increased pain, shortness of breath, bleeding, nausea or vomiting, chestpain, or any unexpected problems, contact your Primary Care Provider. Call [facility] ([phone]) or report to the closest Emergency Room. Call 911 if necessary. 03/10/231948 <Electronically signed by Citlali Zurita MD> Cosigner Signature (if applicable): CC: Dr. Kendy Modi MD ~ Signed [facility] Work Phone: 1([phone]) 523-993908-04-2023 History and physical note Author Matt Penny [facility] March 10, 2023 5:27pm Note Date/Time March 10, 2023 4:4 8pm [facility] Medical Records Department [address] [place] [address] H&P Exam - Hospitalist 03/10/23 1644 MR#: [id number] Acct: [id number] Name: YONY VEGA Rep #:[id number] : 1955 67 From: Matt Simon PCP: Dr. Kendy Modi MD Status:ADM CRICKET Location: [place] [address]- 1 HPI - General General Date of Admission: 03/10/23 Date of Service: 03/10/23 Chief Complaint: Near syncope 2 episodes today. HPI Narrative YONY VEGA, cedric a 67 M was sent to ED [...] gonzalez NP, last clinic visit January 2023 [facility] Medical History Anxiety disorder Arthritis Atherosclerosis of [...] 79.4 H, Lymph % (Auto) 10.6 L, Pacific %(Auto) 8.5, Eos % (Auto) 0.5, Baso [...] Clarity Clear, Urine pH 6.0, Ur Specific [place] 1.015, Urine Protein 15 H, Urine Glucose [...] He does not have major power of civil attorney for health. His is next of kin. After discussion of benefits/risks proceduresinvolved with full code, DNR CC arrest and DNR CC, the patient opted for full code. Patient does want artificial life support including intubation, tube feed, ventilator and/chest compression, central venous catheter, vasopressor and DC shock if needed Total time spent in eelf-lv-grrw encounter in discussion of advanced directive 17 minutes. Laboratory Results 03/10/23 12:10: WBC 8.1, RBC 4.64, Hgb 13.0, Hct 40.6, MCV 87.5, MCH 28.0, MCHC 32.0, RDW Std Deviation 45.3 H, RDW Coeff of Maia 14.2, Plt Count 295, MPV 9.4, Immature Gran % (Auto) 0.500, Neut % (Auto) 79.4 H, Lymph % (Auto) 10.6 L, Pacific % (Auto) 8.5, Eos % (Auto) 0.5, [...] Clarity Clear, Urine pH 6.0, Ur Specific [place] 1.015, Urine Protein 15 H, Urine Glucose (UA) 50 H, Urine Ketones Negative, Urine Occult Blood Negative, Urine Nitrite Negative, Urine Bilirubin Negative, Urine Urobilinogen Normal, Ur Leukocyte Esterase Negative, Urine RBC 0 SEEN, Urine WBC 0 SEEN, Ur Squamous Epith Cells 0 SEEN, Urine Bacteria 0 SEEN, Urine Mucus 0 SEEN Charges/Coding Visit Charges Inpatient E&M: 24428 Init Hosp L3 Procedures Hospitalists Procedures: 50080 Advncd Care Plan 30 Min 03/10/23 1727 <Electronically signed by Matt Penny MD> Cosigner Signature (if applicable): CC: Dr. Kendy Modi MD; Dr. Matt Penny MD~ Signed [facility] Work Phone: [phone]) 928-558110-05-2022 History of Present illness Narrative* Kori Abdul [...] with this were given. Patient measured for Carrituse Nuform belt left sided large [id number] with prolapse strap. He was given information [...] nos ting skin prep Pouching System: applied: [place] New Image 2-3/4 flat with paste over hollihesive washer to lock n roll pouch Wear Time: goal is 3-5 days Midline Abdominal Incision: Healed scar Comment: Patient will be sent closed pouches from [facility]. Time Increment: 1 hour 45 minutes Kori Winslow, ANTHONYN, RN, CWOCN M-F 8am-4pm Weekends/Holidays 8am-3pm * Kori Abdul RN - 05/11/2022 11:18 [place] [address] Patient: Isaias Vega Patient Address: [address] [place] [address] Dr Perez [facility] Preferred Gender: male Date of : 1955 Type of Stoma: End Descending Colostomy Diagnosis: Rectal Cancer C20 OSTOMY SUPPLY ORDER FORM Pouch: Ranjana: #77510 New Image closed pouch with filter 30 day use - 2 Boxes Wafer: Ranjana: #16065 precut 2 flat New Image 30 day use - 4 Boxes Adhesive Removers: Coloplast Brava Basco # [id number] 4 Bottles over 90 days Adhesive Removers: Essenta #[id number] 30 day use - 1 Box Belt: Ranjana Medium # 7300 30 day use - As Needed Paste: ConvaTec Stomahesive # 747310 30 day use - 2 Tubes Powder: ConvaTec Stomahesive # 11484 30 day use - As Needed Skin Barrier: Ranjana Hollihesive 4x4 5/box #1237 30 day use - 3 Boxes Skin Sealant: 3M Cavilon No Sting, 50/Box #5521 30 day use - 1 Box Ranjana Deodorant: M-9 #7717 `1 Bottle as needed Nuhope Nuform hernia belt beige, left sided with offset of 1 from bottom opening size large [id number] Refills: 11 Attending Physician: Dr. Galarza For immediate authorization, please contact the physician s office. [facility] Nurse: JIM Lomax, CWOCN Note: Contact Diamond Guidrymich at [facility] SIGNATURE: Kori Abdul RN PATIENT NAME: Isaias Vega DATE: May 11, 2022 TIME: 11:18 AM CONTACT #: [phone] EMAIL: documented in this [facility]Mer[facility] History of Present illness Narrative* I Forest Galarza MD - 05/11/2022 9:00 AM EDT [...] CEA: 11/22/21 - 4.0 08/25/21 - 5.7 10. - 6.9 04/07/21 - 6.2 03/15/2022 MRI [...] Review of Procedures / Tests: [facility] I have independently interpreted: CT Abdomen, CT Pelvis, CT Chest I have discussed Isaias Vega's treatment plan and/or results with himself. Treatment plan: stoma team consult if they are unable to help, he may need ostomy revision with me he will reach out Risk of morbidity, mortality and/or complications of treatment plan: moderate documented in this encounterMer[facility]08-09-2022 NoteHNO ID: [id number] Author: Genia Clement RN Service: Nursing Author [...] Vega DATE: March 15, 2022 TIME: 2:15 [id number] History of Present illness Narrative* Genia Clement [...] 2022 TIME: 2:15 PM documented in this encounterMer[facility]08-09-2022 Miscellaneous Notes* Allied Health - MARLENE Camilo Tech - 03/15/2022 2:00 PM EDT Radiology Service [...] Site disposition Discontinued SIGNED BY: Tereza Denise plywood layup line back feeder March 15, 2022 2:54 PM documented in this encounterMer[facility] Health [facility]. [facility]05-09-2022 History of Present illness Narrative* Everardo Yusuf APRN.JUNIOR ANALYST - 12/13/2021 2:06 PM EDT Chief Complaint Patient presents with: Established Patient HPI: Isaias Vega is a 66 year old male who presents here today for follow up rectal cancer. 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 Biomarkers: Mismatch repair ICH: MLH-1 (M1) positive MSH2 (25D12) positive MSH6 (44) positive PMS2 ([id number]) positive Result of Microsatellite Instability Study -Negative [...] CEA and b/l leg angioplasty. Presented to [facility] on 05/02/2019 with an [...] blood cell transfusion. Patient was referred to [facility] and underwent evaluation by Dr. Galarza on [...] of the left arm. It affected hand sleep tech and some strength in elbow flexion and [...] a wheelchair when going to medical appointments). [place] well the remainder of that week but [...] - Metastatic adenocarcinoma involving one lymph node (7). - Negative surgical margins. - No evidence of lymphovascular or perineural invasion. 2. Right lateral pelvic lymph nodes, excision (B) - Metastatic adenocarcinoma involving one lymph node (7). DSA 06/02/2020 COMMENT 1. CAM 5.2 stain [...] in-situ hybridization tests have been determined by [facility]'s [facility] Pathology and Laboratory Medicine [place] ([facility]) in a manner consistent with CLIA requirements. One or more of these tests have not been cleared or approved by the FDA. 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 went to [facility] ED 09/23/21 for UTI. He went back [...] 4.00 k/uL 0.82 (L) 0.79 (L) 1.07 Pacific% % 8.3 10.0 10.4 Abs Pacific <0.87 k/uL 0.74 0.53 0.71 Eosin% % [...] cancer (HCC) - ICD9: 154.1, ICD10: C20 [id number] stage III invasive adenocarcinoma of the lower [...] (on 3T magnet) in 3 months at [place]. - Needs appt. with Dr. Galarza d/t [...] visit. Everardo Yusuf APRN.ARTI documented in this encounterMer[facility]05-05-2022 History of Present illness Narrative* Shelia Bonner, RT(R) - 12/09/2021 2:20 PM EDT Radiology [...] 2021 TIME: 3:02 PM documented in this encounterMer[facility]04-19-2022 Miscellaneous Notes* Telephone Encounter - Nikki Gabriel - 11/23/2021 1:00 PM EDT SPOKE TO PT AND SCHEDULED. Nikki Gabriel * Telephone Encounter - Everardo Yusuf APRN.CNP - 11/23/2021 12:[address]'s with pt. Please schedule MRI liver soon. Order in. If not able to have MRI prior to OV then please push OV out. Thank you. Everardo Yusuf APRN.JUNIOR ANALYST documented in this encounterMer[facility]04-18-2022 History of Present illness Narrative* Bozena Gordon, RT(R) - 11/22/2021 3:00 PM EDT Radiology Service [...] RT Kavon(R) PATIENT NAME: Isaias Vega DATE: November 22, 2021 TIME: 4:09 PM documented in this encounterMer[facility]05-29-2015 Evaluation note* Diagnosis Onset Date Resolution Status History of coronary artery stent placement January 02, 2 015 acute [id number] chronic Dyslipidemia chronic Ischemic cardiomyopathy [facility] Work Phone: 1(853) 467-272710-24-2008 Evaluation note* Diagnosis Onset Date Resolution Status Coronary artery disease [facility] Diabetes chronic Dyslipidemia chronic Essential hypertension chron ic H/O coronary artery bypass surgery May 30, 2008 chronic History of coronary artery stent placement January 02, 2 015 [facility] Work Phone: Evaluation note* Diagnosis Onset Date Resolution Status Colorectal cancer acute Parastomal hernia acute UTI (urinary tract infection) acute [id number] chronic Dyslipidemia chronic HTN (hypertension) chronic Ischemic cardiomyopathy 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 Altered mental status resolv ed Hypoxia resolved Non-ST elevation [place] (NSTEMI) resolved [id number] chronic Dyslipidemia chronic HTN (hypertension) chronic Ischemic cardiomyopathy [facility] Work Phone: Evaluation note* Diagnosis Rectal cancer (HCC)- Primary Malignant neoplasm of rectum documented in this encounter [facility] note* Diagnosis Rectal cancer (HCC) Malignant neoplasm of rectum documented in this encounter [facility] note* Diagnosis Rectal cancer (HCC)- Primary Malignant neoplasm of rectum Abnormal CT of the abdomen Nonspecific (abnormal) findings on radiological and other examination of abdominal area, including retroperitoneum documented in this encounter [facility] note* Diagnosis Rectal cancer (HCC) Malignant neoplasm of rectum Abnormal CT of the abdomen Nonspecific (abnormal) findings on radiological and other examination of abdominal area, including retroperitoneum documented in this encounter [facility] note* Diagnosis Rectal cancer (HCC)- Primary Malignant neoplasm of rectum Abnormal MRI, liver Nonspecific (abnormal) findings on radiological and other examination of biliary tract documented in this encounter [facility] note* Diagnosis Rectal cancer (HCC) Malignant neoplasm of rectum Abnormal MRI, liver Nonspecific (abnormal) findings on radiological and other examination of biliary tract documented in this encounter 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 Near syncope acute Orthostatic hypotension [facility] Work Phone: Evaluation note* Diagnosis Colostomy complication Unspecified complication of colostomy or enterostomy [facility] Diagnosis Rectal cancer (HCC)- Primary Malignant neoplasm of rectum Elevated CEA Elevated carcinoembryonic antigen [CEA] documented in this encounter [facility] note* Diagnosis Rectal cancer (HCC) Malignant neoplasm of rectum Elevated CEA Elevated carcinoembryonic antigen [CEA] documented in this encounter [facility] note* Diagnosis Rectal cancer (HCC)- Primary Malignant neoplasm of rectum documented in this encounter [facility] note* Diagnosis Colostomy complication- Primary Unspecified complication of colostomy or enterostomy Peristomal hernia Hernia of unspecified site of abdominal cavity without mention of obstruction or gangrene [facility] [place]* Diagnosis Stroke- Primary Unspecified cerebral artery [...] or gangrene [facility]* Diagnosis Urinary retention- Primary Retention of urine, unspecified Frail elderly Senility without mention of psychosis History of CVA in adulthood Unable to walk Difficulty in walking documented in this encounter 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 Pre-operative examination- Primary Preoperative examination, unspecified Rectal cancer (HCC) Malignant neoplasm of rectum 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, unspecified vessel or lesion type (HCC) PAD (peripheral artery disease) (HCC) Peripheral vascular disease, unspecified Stenosis of right [...] Coronary atherosclerosis of unspecified type of vessel, nenana or graft Colostomy in place (HCC) Colostomy status History of CVA in adulthood HTN (hypertension) Unspecified essential hypertension Hyperlipidemia Other and unspecified hyperlipidemia ALEJANDRO on CPAP Obstructive sleep apnea (adult) (pediatric) PAD (peripheral artery disease) (HCC) Peripheral vascular disease, unspecified Acute postoperative pain [...] unspecified Gross hematuria documented in this encounter [facility] [place] [facility]* Diagnosis Postoperative pain- Primary Other acute postoperative pain Rectal cancer (HCC) Malignant neoplasm of rectum Diabetes mellitus type 2, uncontrolled Type II or unspecified type diabetes mellitus without mention of complication, uncontrolled Stenosis of right carotid artery Occlusion and stenosis of carotid artery without mention of cerebral infarction Neuropathy Mononeuritis of unspecified site FCI (current) use of 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/antiplatelets Pre-operative examination- Primary Preoperative examination, unspecified Rectal cancer ([facility]) Malignant neoplasm of rectum 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, unspecified vessel or [...] Coronary atherosclerosis of unspecified type of vessel, nenana or graft Colostomy in place ([facility]) Colostomy status History of CVA in adulthood HTN (hypertension) Unspecified essential hypertension Hyperlipidemia Other and unspecified hyperlipidemia ALEJANDRO on CPAP Obstructive sleep apnea (adult) (pediatric) PAD (peripheral artery disease) (HCC) Peripheral vascular disease, unspecified Acute postoperative pain [...] catheter, initial encounter ([facility]) (HCC)- Primary documented in this encounter [facility] note* Diagnosis Postoperative pain- Primary Other acute postoperative pain Rectal cancer (HCC) Malignant neoplasm of rectum Diabetes mellitus type 2, uncontrolled Type II or unspecified type diabetes mellitus without mention of complication, uncontrolled Stenosis of right carotid artery Occlusion and stenosis of carotid artery without mention of cerebral infarction Neuropathy Mononeuritis of unspecified site 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 Pre-operative examination- Primary Preoperative examination, unspecified Rectal cancer (HCC) Malignant neoplasm of rectum 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, unspecified vessel or [...] Coronary atherosclerosis of unspecified type of vessel, nenana or graft Colostomy in place (HCC) Colostomy status History of CVA in adulthood HTN (hypertension) Unspecified essential hypertension Hyperlipidemia Other and unspecified hyperlipidemia ALEJANDRO on CPAP Obstructive sleep apnea (adult) (pediatric) PAD (peripheral artery disease) (HCC) Peripheral vascular disease, unspecified Acute postoperative pain [...] disorders not elsewhere classified Attention to ileostomy (HCC)- Primary Attention to ileostomy documented in this encounter 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 Pre-operative examination- Primary Preoperative examination, unspecified Rectal cancer (HCC) Malignant neoplasm of rectum 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, unspecified vessel or [...] Coronary atherosclerosis of unspecified type of vessel, nenana or graft Colostomy in place (HCC) Colostomy status History of CVA in adulthood HTN (hypertension) Unspecified essential hypertension Hyperlipidemia Other and unspecified hyperlipidemia ALEJANDRO on CPAP Obstructive sleep apnea (adult) (pediatric) PAD (peripheral artery disease) (HCC) Peripheral vascular disease, unspecified Acute postoperative pain [...] of urine, unspecified 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 Pre-operative examination- Primary Preoperative examination, unspecified Rectal cancer (HCC) Malignant neoplasm of rectum 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, unspecified vessel or [...] Coronary atherosclerosis of unspecified type of vessel, nenana or graft Colostomy in place ([facility]) Colostomy status History of CVA in adulthood HTN (hypertension) Unspecified essential hypertension Hyperlipidemia Other and unspecified hyperlipidemia ALEJANDRO on CPAP Obstructive sleep apnea (adult) (pediatric) PAD (peripheral artery disease) (HCC) Peripheral vascular disease, unspecified Acute postoperative pain [...] involving digestive system documented [facility] Diagnosis Postoperative pain- Primary Other acute postoperative pain Rectal cancer (HCC) Malignant neoplasm of rectum Diabetes mellitus type 2, uncontrolled Type II or unspecified type diabetes mellitus without mention of complication, uncontrolled Stenosis of right carotid artery Occlusion and stenosis of carotid artery without mention of cerebral infarction Neuropathy Mononeuritis of unspecified site [facility] (current) use of 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/antiplatelets Pre-operative examination- Primary Preoperative examination, unspecified Rectal cancer (HCC) Malignant neoplasm of rectum 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, unspecified vessel or [...] Coronary atherosclerosis of unspecified type of vessel, nenana or graft Colostomy in place ([facility]) Colostomy status History of CVA in adulthood HTN (hypertension) Unspecified essential hypertension Hyperlipidemia Other and unspecified hyperlipidemia ALEJANDRO on CPAP Obstructive sleep apnea (adult) (pediatric) PAD (peripheral artery disease) (HCC) Peripheral vascular disease, unspecified Acute postoperative pain [...] of urine, unspecified 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 Pre-operative examination- Primary Preoperative examination, unspecified Rectal cancer (HCC) Malignant neoplasm of rectum 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, unspecified vessel or [...] Coronary atherosclerosis of unspecified type of vessel, nenana or graft Colostomy in place ([facility]) Colostomy status History of CVA in adulthood HTN (hypertension) Unspecified essential hypertension Hyperlipidemia Other and unspecified hyperlipidemia ALEJANDRO on CPAP Obstructive sleep apnea (adult) (pediatric) PAD (peripheral artery disease) (HCC) Peripheral vascular disease, unspecified Acute postoperative pain [...] of urine, unspecified 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 Pre-operative examination- Primary Preoperative examination, unspecified Rectal cancer (HCC) Malignant neoplasm of rectum 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, unspecified vessel or [...] Coronary atherosclerosis of unspecified type of vessel, nenana or graft Colostomy in place ([facility]) Colostomy status History of CVA in adulthood HTN (hypertension) Unspecified essential hypertension Hyperlipidemia Other and unspecified hyperlipidemia ALEJANDRO on CPAP Obstructive sleep apnea (adult) (pediatric) PAD (peripheral artery disease) (HCC) Peripheral vascular disease, unspecified Acute postoperative pain [...] (HCC)- Primary Other symptoms involving digestive system Retention of urine Retention of urine, unspecified documented 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 Pre-operative examination- Primary Preoperative examination, unspecified Rectal cancer (HCC) Malignant neoplasm of rectum 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, unspecified vessel or lesion type ([facility]) PAD (peripheral artery disease) (HCC) Peripheral vascular disease, unspecified Stenosis of right [...] Coronary atherosclerosis of unspecified type of vessel, nenana or graft Colostomy in place (HCC) Colostomy status History of CVA in adulthood HTN (hypertension) Unspecified essential hypertension Hyperlipidemia Other and unspecified hyperlipidemia ALEJANDRO on CPAP Obstructive sleep apnea (adult) (pediatric) PAD (peripheral artery disease) (HCC) Peripheral vascular disease, unspecified Acute postoperative pain [...] junction, and anus [facility] [place] [facility] Diagnosis Postoperative pain- Primary Other acute postoperative pain Rectal cancer (HCC) Malignant neoplasm of rectum Diabetes mellitus type 2, uncontrolled Type II or unspecified type diabetes mellitus without mention of complication, uncontrolled Stenosis of right carotid artery Occlusion and stenosis of carotid artery without mention of cerebral infarction Neuropathy Mononeuritis of unspecified site [facility]CI (current) use of 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/antiplatelets Pre-operative examination- Primary Preoperative examination, unspecified Rectal cancer (HCC) Malignant neoplasm of rectum 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, unspecified vessel or lesion type (HCC) PAD (peripheral artery disease) (HCC) Peripheral vascular disease, unspecified Stenosis of right [...] Coronary atherosclerosis of unspecified type of vessel, nenana or graft Colostomy in place (HCC) Colostomy status History of CVA in adulthood HTN (hypertension) Unspecified essential hypertension Hyperlipidemia Other and unspecified hyperlipidemia ALEJANDRO on CPAP Obstructive sleep apnea (adult) (pediatric) PAD (peripheral artery disease) (HCC) Peripheral vascular disease, unspecified Acute postoperative pain [...] disorders not elsewhere classified Chronic suprapubic catheter (HCC)- Primary Unspecified cystostomy status 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 Diagnosis Postoperative pain- Primary Other acute postoperative pain Rectal cancer (HCC) Malignant neoplasm of rectum Diabetes mellitus type 2, uncontrolled Type II or unspecified type diabetes mellitus without mention of complication, uncontrolled Stenosis of right carotid artery Occlusion and stenosis of carotid artery without mention of cerebral infarction Neuropathy Mononeuritis of unspecified site [facility]CI (current) use of 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/antiplatelets Pre-operative examination- Primary Preoperative examination, unspecified Rectal cancer (HCC) Malignant neoplasm of rectum 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 Author Matt Penny [facility] March 10, 2023 5:27pm Note Date/Time March 10, 2023 4:4 8pm [facility] Medical Records Department [address] [place] [address] H&P Exam - Hospitalist 03/10/23 1644 MR#: [id number] Acct: [id number] Name: YONY VEGA Rep #:[id number] : 1955 67 From: Matt Simon PCP: Dr. eKndy Modi MD Status:ADM CRICKET Location: [place] [address] HPI - General General Date of Admission: [...] gonzalez NP, last clinic visit January 2023 [facility] Medical History Anxiety disorder Arthritis Atherosclerosis of [...] 79.4 H, Lymph % (Auto) 10.6 L, Pacific %(Auto) 8.5, Eos % (Auto) 0.5, Baso [...] Clarity Clear, Urine pH 6.0, Ur Specific [place] 1.015, Urine Protein 15 H, Urine Glucose [...] He does not have major power of civil attorney for health. His is next of kin. After discussion of benefits/risks proceduresinvolved with full code, DNR CC arrest and DNR CC, the patient opted for full code. Patient does want artificial life support including intubation, tube feed, ventilator and/chest compression, central venous catheter, vasopressor and DC shock if needed Total time spent in [id number] encounter in discussion of advanced directive 17 minutes. Laboratory Results 03/10/23 12:10: WBC 8.1, RBC 4.64, Hgb 13.0, Hct 40.6, MCV 87.5, MCH 28.0, MCHC 32.0, RDW Std Deviation 45.3 H, RDW Coeff of Maia 14.2, Plt Count 295, MPV 9.4, Immature Gran % (Auto) 0.500, Neut % (Auto) 79.4 H, Lymph % (Auto) 10.6 L, Pacific % (Auto) 8.5, Eos % (Auto) 0.5, [...] Clarity Clear, Urine pH 6.0, Ur Specific [place] 1.015, Urine Protein 15 H, Urine Glucose (UA) 50 H, Urine Ketones Negative, Urine Occult Blood Negative, Urine Nitrite Negative, Urine Bilirubin Negative, Urine Urobilinogen Normal, Ur Leukocyte Esterase Negative, Urine RBC 0 SEEN, Urine WBC 0 SEEN, Ur Squamous Epith Cells 0 SEEN, Urine Bacteria 0 SEEN, Urine Mucus 0 SEEN Charges/Coding Visit Charges Inpatient E&M: 97101 Init Hosp L3 Procedures Hospitalists Procedures: 50835 Advncd Care Plan 30 Min 03/10/23 1727 <Electronically signed by Matt Penny MD> Cosigner Signature (if applicable): CC: Dr. Kendy Modi MD; Dr. Matt Penny MD~ Signed [facility] Work Phone: Reason for referral (narrative)* Consultation (Routine) - New Request Specialty Diagnoses / Procedures Referred By Araceli gama Referred To Contact PreOp Diagnoses Colostomy complication Peristomal hernia Angeli Zarate DO [address] [facility] [address] [place] [address] Referral ID Status Reason Start Date Expiration Date V isits Requested Visits Authorized [id number] New Request 07/19/2023 08/12/2024 1 1 * Consultation (Routine) - New Request Specialty Diagnoses / Procedures Referred By Contac t Referred To Contact General Surgery Diagnoses Colostomy complication Peristomal hernia Angeli Zarate DO [address] [place] [address] Referral ID Status Reason Start Date Expiration Date V isits Requested Visits Authorized [id number] New Request 07/19/2023 08/12/2024 1 1 [facility] for referral (narrative)* (Routine) Specialty Diagnoses / Procedures Referred By Contac t Referred To Contact [facility] [address] [place] [address] Referral ID Status Reason Start Date Expiration Date Visits Re quested Visits Authorized * (Routine) Specialty Diagnoses / Procedures Referred By Contac t Referred To Contact [facility] [address] [place] [address] Referral ID Status Reason Start Date Expiration Date Visits Re quested Visits Authorized * Transfer of Care (Routine) - New Request Specialty Diagnoses / Procedures Referred By Contac t Referred To Contact Social Work Diagnoses Acute ischemic stroke NSTEMI (non-ST elevated myocardial infarction) Eyer Jaleel Navarrete APRN-CNP [address] [place] [address] Referral ID Status Reason Start Date Expiration Date V isits Requested Visits Authorized [id number] New Request 11/21/2023 12/15/2024 1 1 * Radiology (Routine) - New Request Specialty Diagnoses / Procedures Referred By Indraac t Referred To Contact Diagnoses Paroxysmal atrial fibrillation Procedures MOBILE CARDIAC TELEMETRY Jaleel Ochoa APRN-CNP [address] [place] [id number] Referral ID Status Reason Start Date Expiration Date V isits Requested Visits Authorized [id number] New Request 11/17/2023 12/11/2024 1 1 * Consultation (Routine) - New Request Specialty Diagnoses / Procedures Referred By Contac t Referred To Contact Cardiovascular Medicine Diagnoses Paroxysmal atrial fibrillation Eyer Jaleel Navarrete APRN-CNP [address] [place] [address] Referral ID Status Reason Start Date Expiration Date V isits Requested Visits Authorized [id number] New Request 11/17/2023 12/11/2024 1 1 Scheduling Instructions Please schedule this patient in the Department of Cardiology. Please scheduled for visit with 1st available provider in 4-6 weeks. Mobile cardiac telemetry ordered. * Radiology (Routine) - Authorized - Specialty Diagnoses / Procedures Referred By Contac t Referred To Contact Peripheral Vascular Diagnoses Bilateral carotid artery stenosis Procedures VASC DUPLEX CAROTID BILATERAL CA DUPLEX SCAN EXTRACRANIAL,BILAT Jaleel Ochoa APRN-CNP [address] [place] [address] Vascular Surg Ultrasound [place] [address] [place] [address] Referral ID Status Reason Start Date Expiration Date Visits Requested Visits Authorized [id number] Authorized - 11/17/2023 12/11/2024 1 1 * Consultation (Routine) - New Request Specialty Diagnoses / Procedures Referred By Contac t Referred To Contact Neurology Diagnoses Cerebrovascular accident (CVA), unspecified mechanism Hitesh Montanez APRN-CNP [address] [place] [address] Referral ID Status Reason Start Date Expiration Date V isits Requested Visits Authorized [id number] New Request 11/17/2023 12/11/2024 1 1 * Unlisted Procedure Code (Routine) - New Request Specialty Diagnoses / Procedures Referred By Contac t Referred To Contact Procedures NO MECHANICAL DVT PROPHYLAXIS Boom Ford MD [address] [place] [address] Referral ID Status Reason Start Date Expiration Date V isits Requested Visits Authorized [id number] New Request 11/16/2023 12/10/2024 1 1 * Unlisted Procedure Code (Routine) - New Request Specialty Diagnoses / Procedures Referred By Contac t Referred To Contact Procedures LOW RISK - NO PHARMACOLOGICAL DVT PROPHYLAXIS Boom Ford MD [address] [place] [address] Referral ID Status Reason Start Date Expiration Date V isits Requested Visits Authorized [id number] New Request 11/16/2023 12/10/2024 1 1 * Unlisted Procedure Code (Routine) - New Request Specialty Diagnoses / Procedures Referred By Contac t Referred To Contact Procedures DVT/VTE RISK ASSESSMENT Boom Ford MD [address] [place] [address] Referral ID Status Reason Start Date Expiration Date V isits Requested Visits Authorized [id number] New Request 11/16/2023 12/10/2024 1 1 * Unlisted Procedure Code (Routine) - New Request Specialty Diagnoses / Procedures Referred By Contac t Referred To Contact Procedures NO MECHANICAL DVT PROPHYLAXIS Boom Ford MD [address] [place] [address] [address] Referral ID Status Reason Start Date Expiration Date V isits Requested Visits Authorized [id number] New Request 11/16/2023 12/10/2024 1 1 * Radiology (Routine) - New Request Specialty Diagnoses / Procedures Referred By Contac t Referred To Contact Procedures Joselito Villanueva MD [address] [place] [address] Referral ID Status Reason Start Date Expiration Date V isits Requested Visits Authorized [id number] New Request 11/12/2023 12/06/2024 1 1 * (Routine) Specialty Diagnoses / Procedures Referred By Contac t Referred To Contact [address] [place] [address] Referral ID Status Reason Start Date Expiration Date Visits Re quested Visits Authorized * Radiology (Emergency) - New Request Specialty Diagnoses / Procedures Referred By Contac t Referred To Contact Procedures Dalton Adan MD [address] [place] [address] Referral ID Status Reason Start Date Expiration Date V isits Requested Visits Authorized [id number] New Request 11/12/2023 12/06/2024 1 1 [facility] for referral (narrative)* Outpatient Procedure (Routine) - New Request Specialty Diagnoses / Procedures Referred By Contac t Referred To Contact [facility] Diagnoses Urinary retention Procedures URODYNAMICS ISAEL POST-VOIDING RESIDUAL URINE&/BLADDER CAP Kenzie Drew APRN.JUNIOR ANALYST, DNP [address] [place] [address] [facility] [address] [place] [address] Referral ID Status Reason Start Date Expiration Date Visits Requested Visits Authorized [id number] New Request Auto-Generat ed Referral 03/12/2024 03/12/2025 [address] [facility] (narrative)No reason for referral information availableWCleveland Clinic [facility] Work Phone: Reason for visit Narrative* Diagnostic Procedure Only (Routine) - Closed Specialty Diagnoses / Procedures Referred By Contac t Referred To Contact Radiology / RADIO MRI [facility] MOB Diagnoses Rectal cancer (HCC) [C20] Abnormal CT of the abdomen [R93.5] Procedures MRI ABDOMEN W/O & W/CONTRAST MATERIAL MRI WWO ABD 300 Everardo Yusuf APRN.JUNIOR ANALYST [address] [place] [address] Radio Mri [facility] [address] [place] [address] Referral ID Status Reason Start Date Expiration Date Visits Re quested Visits Authorized [id number] Closed 11/25/2021 12/24/2021 [address] [facility] Summary Purpose Family History Relationship Condition Age at Onset Recorded Date/T francia father Coronary artery disease Unknown Hypertension Unknown Malignant neoplasm Unknown Diabetes mellitus Unknown Cardiac disease Unknown High blood cholesterol Unknown mother Cerebrovascular accident (CVA) Unknown Malignant neoplasm of breast Unknown brother Diabetes mellitus Unknown Advance Directives Advance Directive Response Recorded Date/ Time Name of Medical Power of Slubber Tender September 06, 2021 9:32am Name of Medical Power of Slubber Tender - recalled September 23, 2021 11:18am Advance Directives No March 23, 2016 3:39pm Living Will No September 24 022 6:33am Power of Slubber Tender No September 24, 2021 6:33am Documents on File Type Date Recorded 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 Advance Directive(s) 05/18/2020 3:04 PM Documents on File Type Date Recorded 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 Advance Directive(s) 05/18/2020 3:04 PM Advance Directive Response Recorded Date/ Time Advance Directives No March 23, 2016 2:39pm Living Will No September 24 022 5:33am Power of Slubber Tender No September 24, 2021 5:33am Advance Directive Response Recorded Date/ Time Advance Directives No March 23, 2016 3:39pm Living Will No March 10, 2023 11:52am Power of Slubber Tender No March 10 11:52am Advance Directive Response Recorded Date/ Time Advance Directives No March 23, 2016 3:39pm Living Will No March 10, 2023 6:03pm Power of Slubber Tender No March 10 6:03pm Advance Directive Response Recorded Date/ Time Advance Directives No March 23, 2016 3:39pm Living Will No 2023 3:27pm Power of Slubber Tender No November 10 3:27pm Latest Code Status on File Code Status Date Activated Date Inactivated Comments Full Code 11/16/2023 3:56 PM Code Status History Code Status Date Activated Date Inactivated Comments Full Code 11/12/2023 8:51 PM 11/16/2023 3:56 PM Advance Directive Response Recorded Date/ Time Advance Directives No March 23, 2016 3:39pm Living Will No November 29, 2023 11:31am Power of Slubber Tender No November 28 11:31am Advance Directive Response Recorded Date/ Time Advance Directives No March 23, 2016 3:39pm Living Will No December 01, 2023 4:43pm Power of Slubber Tender No November 30 4:43pm Advance Directive Response Recorded Date/ Time Living Will No August 25 10:50pm Power of Slubber Tender No August 25, 2024 10:50pm Living Will No October 10, 2024 6:37am Power of Slubber Tender No October 10 6:37am Advance Directives No March 07 9:58am Advance Directive Response Recorded Date/ Time Living Will No August 25 10:50pm Do you have a Healthcare Power of Slubber Tender? No August 25, 2024 10:50pm Living Will No October 10, 2024 6:37am Do you have a Healthcare Power of Slubber Tender? No October 10, 2024 6:37am Advance Directives No March 07 9:58am Advance Directive Response Recorded Date/ Time Living Will No August 25 10:50pm Do you have a Healthcare Power of Slubber Tender? No August 25, 2024 10:50pm Living Will No November 24, 2024 8:09pm Do you have a Healthcare Power of Slubber Tender? No November 24, 2024 8:09pm Living Will No October 10, 2024 6:37am Do you have a Healthcare Power of Slubber Tender? No October 10, 2024 6:37am Advance Directives No March 07 9:58am Advance Directive Response Recorded Date/ Time Living Will No August 25 10:50pm Do you have a Healthcare Power of Slubber Tender? No August 25, 2024 10:50pm Living Will No November 24, 2024 11:13pm Do you have a Healthcare Power of Slubber Tender? No November 24, 2024 11:13pm Living Will No October 10, 2024 6:37am Do you have a Healthcare Power of Slubber Tender? No October 10, 2024 6:37am Advance Directives No March 07 9:58am Advance Directive Response Recorded Date/ Time Living Will No November 24, 2024 11:13pm Do you have a Healthcare Power of Slubber Tender? No November 24, 2024 11:13pm Do you have a Healthcare Power of Slubber Tender? Yes December 02, 2024 11:04pm Name of Medical Power of Slubber Tender José Vega December 02, 2024 11:04pm Advance Directives No March 07 9:58am Advance Directive Response Recorded Date/ Time Advance Directives No March 07 9:58am Advance Directive Response Recorded Date/ Time Advance Directives on File No 2024 9:43am Living Will No April 30, 2025 9:43am Do you have a Healthcare Power of Slubber Tender? No April 30, 2025 9:43am Advance Directives No April 9:43am Chief Complaint and Reason for Visit Chief Complaint SCREENING C-SCOPE headache, collapse from pain headache, collapse from pain NSTEMI NSTEMI NSTEMI NSTEMI NSTEMI NSTEMI NSTEMI NSTEMI NSTEMI NSTEMI CHEST PAIN CHEST PAIN Reason for Visit Colorectal cancer Parastomal hernia UTI (urinary tract infection) [id number] Dyslipidemia HTN (hypertension) Ischemic cardiomyopathy Altered mental status Hypoxia Non-ST elevation [place] (NSTEMI) [id number] Dyslipidemia HTN (hypertension) Ischemic cardiomyopathy Chief Complaint 6 M FU EORDER- URINE DROPOFF Reason for Visit History of coronary artery stent placement [id number] Dyslipidemia Ischemic cardiomyopathy Chief Complaint 6 M FU NEAR SYNCOPE Reason for Visit [id number] Dyslipidemia Ischemic cardiomyopathy Near syncope Orthostatic hypotension Chief Complaint 6 M FU NEAR SYNCOPE NEAR SYNCOPE NEAR SYNCOPE Reason for Visit [id number] Dyslipidemia Ischemic cardiomyopathy Near syncope Orthostatic hypotension [...] 4:04 am Acute respiratory failure with hypoxia 2024 4:04am Combined systolic and diastolic congesti [...] 4:04 am Acute respiratory failure with hypoxia 2024 4:04am Combined systolic and diastolic congesti [...] OFF October 21, 2024 7:1 5pm S/P [facility] 10/18October 30, 2024 2:1 1pm SEVERE MADELEINE [...] 4:04 am Acute respiratory failure with hypoxia [facility] 2024 4:04am Combined systolic and diastolic congesti [...] stent placeme nt March 17, 2025 1:18pm Chief Complaint Admit Date 3 M FU March 17, 2025 1: 18pm LABS March 17, 2025 1: 47pm CAD April 14, 2025 5:57am Coronary artery disease April 14, 2 025 9:09am Amb Documentation April 14, 2025 9:49am Reason for Visit Admit Date HFrEF (heart failure with reduced ejecti on fraction) March 17, 2025 1:18pm Hyperkalemia March 17, 2025 1: 18pm Dyslipidemia March 17, 2025 1: 18pm Essential hypertension March 17, 2025 1:18pm H/O coronary artery bypass surgery Augus t 2024 1:18pm History of coronary artery stent placeme nt March 17, 2025 1:18pm Chief Complaint Admit Date 3 M FU March 17, 2025 1: 18pm LABS March 17, 2025 1: 47pm CAD April 14, 2025 5:57am Coronary artery disease April 14, 2 025 9:09am Amb Documentation April 14, 2025 9:49am ABN STRESS CAD April 29, 2025 2:03pm ABN STRESS CAD April 30, 2025 9:18am Reason for Visit Admit Date HFrEF (heart failure with reduced ejecti on fraction) March 17, 2025 1:18pm Hyperkalemia March 17, 2025 1: 18pm Dyslipidemia March 17, 2025 1: 18pm Essential hypertension March 17, 2025 1:18pm H/O coronary artery bypass surgery Augus t 2024 1:18pm History of coronary artery stent placeme nt March 17, 2025 1:18pm Abnormal stress test April 30 9:18am Dyslipidemia April 30, 2025 9:18am H/O coronary artery bypass surgery Septe mber 2024 9:18am History of coronary artery stent placeme nt April 30, 2025 9:18am HTN (hypertension) April 30, 2025 9:18am Reason for Referral Specialty Diagnoses / [facility] Diagnoses Rectal cancer (HCC) Procedures CT CHEST W IVCON CAT SCAN OF CHEST CONTRAST Everardo Yusuf, BALTAZAR.JUNIOR ANALYST [address] [place] [address] Ct Imaging Referral ID Status Reason Start Date Expiration Date V isits Requested Visits Authorized Closed Auto-Generate d Referral 11/05/2021 12/04/2021 1 1 Specialty Diagnoses / Procedures [facility]ING Diagnoses Rectal cancer (HCC) Procedures CT ABD/PEL W IVCON CT ABD & PELVIS W/CONTRAST Everardo Yusuf, FIRE SUPPORT MAN.JUNIOR ANALYST [address] [place] [address] Ct Imaging Referral ID Status Reason Start Date Expiration Date V isits Requested Visits Authorized [id number] Closed Auto-Generate d Referral 11/05/2021 12/04/2021 1 1 Specialty Diagnoses / [facility] CT IMAGING Diagnoses Rectal cancer (HCC) Elevated CEA Procedures CT CHEST W IVCON DIAGNOSTIC COMPUTED TOMOGRAPHY THORAX W/CONTRAST Everardo Yusuf, BALTAZAR.JUNIOR ANALYST [address] [place] [address] [place] [id number] Referral ID Status Reason Start Date Expiration Date Visits Requested Visits Authorized [id number] Authorized Auto-Generat ed Referral 3 06/24/2023 1 1 Specialty Diagnoses / Procedures Referred By [facility] Referred To Contact CT IMAGING Diagnoses Rectal cancer (HCC) Elevated CEA Procedures CT ABD/PEL W IVCON CT ABD & PELVIS W/CONTRAST Everardo Yusuf, BALTAZAR.JUNIOR ANALYST [address] [place] [address] [place] [id number] Referral ID Status Reason Start Date Expiration Date Visits Requested Visits Authorized [id number] Authorized Auto-Generat ed Referral 3 06/24/2023 1 1 Specialty Diagnoses / Procedures Referred By [facility] Referred To Contact TRANSPLANT Diagnoses High output ileostomy (HCC) Procedures CONSULT TO [facility] LAPAROTOMY CELIOTOMY W/WO BIOPSY SPX Forest Kimble MD [address] [place] [address] [facility] [address] [place] [address] Referral ID Status Reason Start Date Expiration Date Visits Requested Visits Authorized [id number] Canceled Financial Clearance Required - OON Payor 4 06/04/2025 99 99 Specialty Diagnoses / Procedures Referred By [facility] Referred To Contact Diagnoses Chronic suprapubic catheter (HCC) Procedures CONSULT TO [facility] Kenzie Drew, FIRE SUPPORT MAN.JUNIOR ANALYST, DNP [address] [place] [address] Home Care [address] [place] [id number] Referral ID Status Reason Start Date Expiration Date Visits Requested Visits Authorized [id number] Authorized PCP Requested Referral 09/09/2024 12/08/2024 1 1 Specialty Diagnoses / Procedures Referred By [facility] t Referred To Contact [facility] Diagnoses Chronic suprapubic catheter (HCC) Procedures SUPRAPUBIC TUBE CHANGE ASPIRATION BLADDER INSERT SUPRAPUBIC CATHETER Kenzie Drew APRN.JUNIOR ANALYST, DNP [address] [place] [address] [facility] [address] [place] [address] Referral ID Status Reason Start Date Expiration Date Visits Requested Visits Authorized [id number] New Request Auto-Generat ed Referral 09/09/2024 09/09/2025 1 1 Additional Source Comments (unrecognized sect ion and content) No Status Records FoundNo Status Records FoundNo Status Records FoundNo Status Records FoundNo Status Records FoundNo Status Records FoundNo Status Records Found INFORMATION SOURCE (unrecogn ized section and content) DATE CREATED AUTHOR 01/31/2018 [facility] DATE CREATED AUTHOR AUTHOR'S ORGANIZ ATION 03/16/2022 [facility] DATE CREATED AUTHOR AUTHOR'S ORGANIZ ATION 01/13/2024 [facility] ([place]) DATE CREATED AUTHOR AUTHOR'S ORGANIZ ATION 03/10/2024 [facility] DATE CREATED AUTHOR AUTHOR'S ORGANIZ ATION 07/31/2024 [facility] DATE CREATED AUTHOR AUTHOR'S ORGANIZ ATION 01/03/2025 [facility] DATE CREATED AUTHOR AUTHOR'S ORGANIZ ATION 05/09/2025 [facility] Goals (unrecognized section and content) Goals [...] or prosecute any alcohol or drug abuse patient.[facility] the event this information is protected by the Federal Confidentiality of Alcohol and Drug Abuse Patient Records regulations: The Federal rules restrict any use of the information to criminally investigate or prosecute any alcohol or drug abuse patient.[facility] HospitalIn the event this information is protected by the Federal Confidentiality of Alcohol and Drug Abuse Patient Records regulations: The Federal rules restrict any use of the information to criminally investigate or prosecute any alcohol or drug abuse patient.[facility] HospitalIn the event this information is protected by the Federal Confidentiality of Alcohol and Drug Abuse Patient Records regulations: The Federal rules restrict any use of the information to criminally investigate or prosecute any alcohol or drug abuse patient.[facility] HospitalIn the event this information is protected by the Federal Confidentiality of Alcohol and Drug Abuse Patient Records regulations: The Federal rules restrict any use of the information to criminally investigate or prosecute any alcohol or drug abuse patient.[facility] the event this information is protected by the Federal Confidentiality of Alcohol and Drug Abuse Patient Records regulations: The Federal rules restrict any use of the information to criminally investigate or prosecute any alcohol or drug abuse patient.[facility] HospitalIn the event this information is protected by the Federal Confidentiality of Alcohol and Drug Abuse Patient Records regulations: The Federal rules restrict any use of the information to criminally investigate or prosecute any alcohol or drug abuse patient.[facility] HospitalIn the event this information is protected by the Federal Confidentiality of Alcohol and Drug Abuse Patient Records regulations: The Federal rules restrict any use of the information to criminally investigate or prosecute any alcohol or drug abuse patient.[facility] HospitalIn the event this information is protected by the Federal Confidentiality of Alcohol and Drug Abuse Patient Records regulations: The Federal rules restrict any use of the information to criminally investigate or prosecute any alcohol or drug abuse patient.[facility] HospitalIn the event this information is protected by the Federal Confidentiality of Alcohol and Drug Abuse Patient Records regulations: The Federal rules restrict any use of the information to criminally investigate or prosecute any alcohol or drug abuse patient.[facility] HospitalIn the event this information is protected by the Federal Confidentiality of Alcohol and Drug Abuse Patient Records regulations: The Federal rules restrict any use of the information to criminally investigate or prosecute any alcohol or drug abuse patient.[facility] HospitalIn the event this information is protected by the Federal Confidentiality of Alcohol and Drug Abuse Patient Records regulations: The Federal rules restrict any use of the information to criminally investigate or prosecute any alcohol or drug abuse patient.[facility] HospitalIn the event this information is protected by the Federal Confidentiality of Alcohol and Drug Abuse Patient Records regulations: The Federal rules restrict any use of the information to criminally investigate or prosecute any alcohol or drug abuse patient.[facility] HospitalIn the event this information is protected by the Federal Confidentiality of Alcohol and Drug Abuse Patient Records regulations: The Federal rules restrict any use of the information to criminally investigate or prosecute any alcohol or drug abuse patient.[facility] HospitalIn the event this information is protected by the Federal Confidentiality of Alcohol and Drug Abuse Patient Records regulations: The Federal rules restrict any use of the information to criminally investigate or prosecute any alcohol or drug abuse patient.[facility] HospitalIn the event this information is protected by the Federal Confidentiality of Alcohol and Drug Abuse Patient Records regulations: The Federal rules restrict any use of the information to criminally investigate or prosecute any alcohol or drug abuse patient.[facility] HospitalIn the event this information is protected by the Federal Confidentiality of Alcohol and Drug Abuse Patient Records regulations: The Federal rules restrict any use of the information to criminally investigate or prosecute any alcohol or drug abuse patient.[facility] HospitalIn the event this information is protected by the Federal Confidentiality of Alcohol and Drug Abuse Patient Records regulations: The Federal rules restrict any use of the information to criminally investigate or prosecute any alcohol or drug abuse patient.[facility] HospitalIn the event this information is protected by the Federal Confidentiality of Alcohol and Drug Abuse Patient Records regulations: The Federal rules restrict any use of the information to criminally investigate or prosecute any alcohol or drug abuse patient.[facility] HospitalIn the event this information is protected by the Federal Confidentiality of Alcohol and Drug Abuse Patient Records regulations: The Federal rules restrict any use of the information to criminally investigate or prosecute any alcohol or drug abuse patient.[facility] HospitalIn the event this information is protected by the Federal Confidentiality of Alcohol and Drug Abuse Patient Records regulations: The Federal rules restrict any use of the information to criminally investigate or prosecute any alcohol or drug abuse patient.[facility] HospitalIn the event this information is protected by the Federal Confidentiality of Alcohol and Drug Abuse Patient Records regulations: The Federal rules restrict any use of the information to criminally investigate or prosecute any alcohol or drug abuse patient.[facility] HospitalIn the event this information is protected by the Federal Confidentiality of Alcohol and Drug Abuse Patient Records regulations: The Federal rules restrict any use of the information to criminally investigate or prosecute any alcohol or drug abuse patient.[facility] HospitalIn the event this information is protected by the Federal Confidentiality of Alcohol and Drug Abuse Patient Records regulations: The Federal rules restrict any use of the information to criminally investigate or prosecute any alcohol or drug abuse patient.[facility] HospitalIn the event this information is protected by the Federal Confidentiality of Alcohol and Drug Abuse Patient Records regulations: The Federal rules restrict any use of the information to criminally investigate or prosecute any alcohol or drug abuse patient.[facility] HospitalIn the event this information is protected by the Federal Confidentiality of Alcohol and Drug Abuse Patient Records regulations: The Federal rules restrict any use of the information to criminally investigate or prosecute any alcohol or drug abuse patient.[facility] HospitalIn the event this information is protected by the Federal Confidentiality of Alcohol and Drug Abuse Patient Records regulations: The Federal rules restrict any use of the information to criminally investigate or prosecute any alcohol or drug abuse patient.[facility] HospitalIn the event this information is protected by the Federal Confidentiality of Alcohol and Drug Abuse Patient Records regulations: The Federal rules restrict any use of the information to criminally investigate or prosecute any alcohol or drug abuse patient.[facility] HospitalIn the event this information is protected by the Federal Confidentiality of Alcohol and Drug Abuse Patient Records regulations: The Federal rules restrict any use of the information to criminally investigate or prosecute any alcohol or drug abuse patient.[facility] HospitalIn the event this information is protected by the Federal Confidentiality of Alcohol and Drug Abuse Patient Records regulations: The Federal rules restrict any use of the information to criminally investigate or prosecute any alcohol or drug abuse patient.[facility] HospitalIn the event this information is protected by the Federal Confidentiality of Alcohol and Drug Abuse Patient Records regulations: The Federal rules restrict any use of the information to criminally investigate or prosecute any alcohol or drug abuse patient.[facility] HospitalIn the event this information is protected by the Federal Confidentiality of Alcohol and Drug Abuse Patient Records regulations: The Federal rules restrict any use of the information to criminally investigate or prosecute any alcohol or drug abuse patient.[facility] HospitalIn the event this information is protected by the Federal Confidentiality of Alcohol and Drug Abuse Patient Records regulations: The Federal rules restrict any use of the information to criminally investigate or prosecute any alcohol or drug abuse patient.[facility] HospitalIn the event this information is protected by the Federal Confidentiality of Alcohol and Drug Abuse Patient Records regulations: The Federal rules restrict any use of the information to criminally investigate or prosecute any alcohol or drug abuse patient.[facility] HospitalIn the event this information is protected by the Federal Confidentiality of Alcohol and Drug Abuse Patient Records regulations: The Federal rules restrict any use of the information to criminally investigate or prosecute any alcohol or drug abuse patient.[facility] HospitalIn the event this information is protected by the Federal Confidentiality of Alcohol and Drug Abuse Patient Records regulations: The Federal rules restrict any use of the information to criminally investigate or prosecute any alcohol or drug abuse patient.[facility] HospitalIn the event this information is protected by the Federal Confidentiality of Alcohol and Drug Abuse Patient Records regulations: The Federal rules restrict any use of the information to criminally investigate or prosecute any alcohol or drug abuse patient.[facility] HospitalIn the event this information is protected by the Federal Confidentiality of Alcohol and Drug Abuse Patient Records regulations: The Federal rules restrict any use of the information to criminally investigate or prosecute any alcohol or drug abuse patient.[facility] HospitalIn the event this information is protected by the Federal Confidentiality of Alcohol and Drug Abuse Patient Records regulations: The Federal rules restrict any use of the information to criminally investigate or prosecute any alcohol or drug abuse patient.[facility] HospitalIn the event this information is protected by the Federal Confidentiality of Alcohol and Drug Abuse Patient Records regulations: The Federal rules restrict any use of the information to criminally investigate or prosecute any alcohol or drug abuse patient.[facility] HospitalIn the event this information is protected by the Federal Confidentiality of Alcohol and Drug Abuse Patient Records regulations: The Federal rules restrict any use of the information to criminally investigate or prosecute any alcohol or drug abuse patient.[facility] HospitalIn the event this information is protected by the Federal Confidentiality of Alcohol and Drug Abuse Patient Records regulations: The Federal rules restrict any use of the information to criminally investigate or prosecute any alcohol or drug abuse patient.[facility] Care Teams (unrecognized sec tion and content) Taping Machine Operator Relationship Specialty Start Date End Date Kendy Modi PCP - General Family Practice 01/21/13 Bipin Ford MD, [address] [facility] [place] [address] Physician Radiation Oncology 06/12/19 Jo Maria RN Specialty Manager Beverage Oncology 01/16/20 Taping Machine Operator Relationship Specialty Start Date End Date Kendy Modi PCP - General Family Practice 01/21/13 Bipin Ford MD, [address] [facility] [place] [address] Physician Radiation Oncology 06/12/19 Jo Maria RN Specialty Manager Beverage Oncology 01/16/20 Taping Machine Operator Relationship Specialty Start Date End Date Kendy Modi PCP - General Family Practice 01/21/13 Bipin Ford MD, [address] [facility] [address] Physician Radiation Oncology 06/12/19 Jo Maria RN Specialty Manager Beverage Oncology 01/16/20 Taping Machine Operator Relationship Specialty Start Date End Date Kendy Modi PCP - General Family Practice 01/21/13 Bipin Ford MD, [address] [facility] [address] Physician Radiation Oncology 06/12/19 Jo Maria RN Specialty Manager Beverage Oncology 01/16/20 Taping Machine Operator Relationship Specialty Start Date End Date Kendy Modi PCP - General Family Practice 01/21/13 Bipin Ford MD, [address] [facility] [address] Physician Radiation Oncology 06/12/19 Jo Maria RN Specialty Manager Beverage Oncology 01/16/20 Taping Machine Operator Relationship Specialty Start Date End Date Kendy Modi PCP - General Family Practice 01/21/13 Bipin Ford MD, [address] [place] [address] Physician Radiation Oncology 06/12/19 Jo Maria RN Specialty Manager Beverage Oncology 01/16/20 Taping Machine Operator Relationship Specialty Start Date End Date Kendy Modi PCP - General Family Practice 01/21/13 Bipin Ford MD, [address] [place] [address] Physician Radiation Oncology 06/12/19 Jo Maria RN Specialty Manager Beverage Oncology 01/16/20 Taping Machine Operator Relationship Specialty Start Date End Date Kendy Modi PCP - General Family Practice 01/21/13 Bipin Ford MD, [address] [facility] [place] [address] Physician Radiation Oncology 06/12/19 Jo Maria RN Specialty Manager Beverage Oncology 01/16/20 Taping Machine Operator Relationship Specialty Start Date End Date Kendy Modi PCP - General Family Medicine 01/21/13 Bipin Ford MD, [address] [facility] [place] [address] Physician Radiation Oncology 06/12/19 Jo Maria RN Specialty Manager Beverage Oncology 01/16/20 Taping Machine Operator Relationship Specialty Start Date End Date Kendy Modi PCP - General Family Medicine 01/21/13 Bipin Ford MD, [address] [place] [address] Physician Radiation Oncology 06/12/19 Jo Maria RN Specialty Manager Beverage Oncology 01/16/20 Team Status: Active Member Role [...] Provider, Referrin g Provider Active Vishal Gonzalez PULLBOAT ENGINEER, PULLBOAT ENGINEER-C Attending Provider Active Team Status: Active Member [...] Dr. Catherine Barton MD Attending Provider Active Taping Machine Operator Relationship Specialty Start Date End Date Kendy Modi MD [address] [place] [id number] PCP - General Family Medicine 05/24/23 Taping Machine Operator Relationship Specialty Start Date End Date Kendy Modi PCP - General Family Medicine 01/21/13 Bipin Ford MD, [address] [place], [place] [id number] Physician Radiation Oncology 06/12/19 Jo Maria, RN Specialty Manager Beverage Oncology 01/16/20 Taping Machine Operator Relationship Specialty Start Date End Date Kendy Modi PCP - General Family Medicine 01/21/13 Bipin Ford MD, [address] [place], [place] [id number] Physician Radiation Oncology 06/12/19 Jo Maria RN Specialty Manager Beverage Oncology 01/16/20 Taping Machine Operator Relationship Specialty Start Date End Date Kendy Modi PCP - General Family Medicine 01/21/13 Bipin Ford MD, [address], [place] [id number] Physician Radiation Oncology 06/12/19 Jo Maria RN Specialty Manager Beverage Oncology 01/16/20 Taping Machine Operator Relationship Specialty Start Date End Date Kendy Modi PCP - General Family Medicine 01/21/13 Bipin Ford MD, [address], [place] [id number] Physician Radiation Oncology 06/12/19 Jo Maria RN Specialty Manager Beverage Oncology 01/16/20 Taping Machine Operator Relationship Specialty Start Date End Date Kendy Modi PCP - General Family Medicine 01/21/13 Bipin Ford MD, [address], [place] [address] Physician Radiation Oncology 06/12/19 Jo Maria, RN Specialty Manager Beverage Oncology 01/16/20 Taping Machine Operator Relationship Specialty Start Date End Date Kendy Modi PCP - General Family Medicine 01/21/13 Bipin Ford MD, MD [address], [place] [address] Physician Radiation Oncology 06/12/19 Jo Maria RN Specialty Manager Beverage Oncology 01/16/20 Taping Machine Operator Relationship Specialty Start Date End Date Kendy Modi MD [address] [place] [id number] PCP - General Family Medicine 05/24/23 Team Status: Inactive Member Role Status Dates Dr. Kendy Modi MD Primary Care Provider, Referrin g Provider Active Dr. Prateek Smith MD Attending Provider Active Team Status: Inactive Member Role Status Dates Dr. Kendy Modi MD Primary Care Provider, Attendin g Provider Active Team Status: Inactive Member Role Status Dates Dr. Kendy Modi MD Primary Care Provider Active Dr. Kenzie Britton DO Emergency Provider Active Taping Machine Operator Relationship Specialty Start Date End Date Kendy Moid MD [address] [place] [phone] PCP - General Family Medicine 05/24/23 Team [...] Devlin DO Admit Provider, Attending Provider Active Taping Machine Operator Relationship Specialty Start Date End Date Kendy Modi PCP - General Family Medicine 01/21/13 Bipin Ford MD [address] [place], [place] [id number] Physician Radiation Oncology 06/12/19 Jo Maria RN Specialty Manager Beverage Oncology 01/16/20 Taping Machine Operator Relationship Specialty Start Date End Date Kendy Modi PCP - General Family Medicine 01/21/13 Bipin Ford MD [address] [place] [place] [address] Physician Radiation Oncology 06/12/19 Jo Maria RN Specialty Manager Beverage Oncology 01/16/20 Taping Machine Operator Relationship Specialty Start Date End Date Kendy Modi PCP - General Family Medicine 01/21/13 Bipin Ford MD [address] [place] [address] Physician Radiation Oncology 06/12/19 Jo Maria RN Specialty Manager Beverage Oncology 01/16/20 Taping Machine Operator Relationship Specialty Start Date End Date Kendy Modi PCP - General Family Medicine 01/21/13 Bipin Ford MD [address] [place], [place] [address] [phone] Physician Radiation Oncology 06/12/19 Jo Maria, RN Specialty Manager Beverage Oncology 01/16/20 Taping Machine Operator Relationship Specialty Start Date End Date Kendy Modi PCP - General Family Medicine 01/21/13 Bipin Ford MD [address] [place], [place] [address] [phone] Physician Radiation Oncology 06/12/19 Jo Maria RN Specialty Manager Beverage Oncology 01/16/20 Matt Penny [address] [facility] [address] [place], [place] [address] Referring Internal Medicine 04/04/24 Taping Machine Operator Relationship Specialty Start Date End Date Kendy Modi PCP - General Family Medicine 01/21/13 Bipin Ford MD [address] [place], [place] [address] Physician Radiation Oncology 06/12/19 Jo Maria RN Specialty Manager Beverage Oncology 01/16/20 Matt Penny [address], [place] [phone] Referring Internal Medicine 04/04/24 Taping Machine Operator Relationship Specialty Start Date End Date Kendy Modi PCP - General Family Medicine 01/21/13 Bipin Ford MD [address] [place], [place] [phone] Physician Radiation Oncology 06/12/19 Jo Maria, RN Specialty Manager Beverage Oncology 01/16/20 Matt Penny [address] [place], [place] [address] Referring Internal Medicine 04/04/24 Taping Machine Operator Relationship Specialty Start Date End Date Kendy Modi PCP - General Family Medicine 01/21/13 Bipin Ford MD [address] [place], [place] [address] [phone] Physician Radiation Oncology 06/12/19 Jo Maria RN Specialty Manager Beverage Oncology 01/16/20 Matt Penny [address] [place] [address] Referring Internal Medicine 04/04/24 Taping Machine Operator Relationship Specialty Start Date End Date Kendy Modi PCP - General Family Medicine 01/21/13 Bipin Ford MD [address] [place] [address] Physician Radiation Oncology 06/12/19 Jo Maria RN Specialty Manager Beverage Oncology 01/16/20 Matt Penny [address] [place], [place] [phone] Referring Internal Medicine 04/04/24 Taping Machine Operator Relationship Specialty Start Date End Date Kendy Modi PCP - General Family Medicine 01/21/13 Bipin Ford MD [address] [place] [address] Physician Radiation Oncology 06/12/19 Jo Maria RN Specialty Manager Beverage Oncology 01/16/20 Matt Penny [address] [place] [address] Referring Internal Medicine 04/04/24 Taping Machine Operator Relationship Specialty Start Date End Date Kendy Modi PCP - General Family Medicine 01/21/13 Bipin Ford MD [address] [place] [address] Physician Radiation Oncology 06/12/19 Jo Maria RN Specialty Manager Beverage Oncology 01/16/20 Matt Penny [address] [place] [address] Referring Internal Medicine 04/04/24 Taping Machine Operator Relationship Specialty Start Date End Date Kendy Modi PCP - General Family Medicine 01/21/13 Bipin Ford MD [address] [place] [address] Physician Radiation Oncology 06/12/19 Jo Maria RN Specialty Manager Beverage Oncology 01/16/20 Matt Penny [address] [place] [address] Referring Internal Medicine 04/04/24 Taping Machine Operator Relationship Specialty Start Date End Date Kendy Modi PCP - General Family Medicine 01/21/13 Bipin Ford MD [address] [place] [address] Physician Radiation Oncology 06/12/19 Jo Maria RN Specialty Manager Beverage Oncology 01/16/20 Matt Penny [address] [place], [place] [address] Referring Internal Medicine 04/04/24 Taping Machine Operator Relationship Specialty Start Date End Date Kendy Modi PCP - General Family Medicine 01/21/13 Bipin Ford MD [address] [place], [place] [address] [phone] Physician Radiation Oncology 06/12/19 Jo Maria RN Specialty Manager Beverage Oncology 01/16/20 Matt Penny [address] [place], [place] [address] Referring Internal Medicine 04/04/24 Taping Machine Operator Relationship Specialty Start Date End Date Kendy Modi PCP - General Family Medicine 01/21/13 Bipin Ford MD [address] [place] [address] Physician Radiation Oncology 06/12/19 Jo Maria RN Specialty Manager Beverage Oncology 01/16/20 Matt Penny [address] [place] [address] Referring Internal Medicine 04/04/24 Taping Machine Operator Relationship Specialty Start Date End Date Kendy Modi PCP - General Family Medicine 01/21/13 Bipin Ford MD [address] [place], [place] [address] Physician Radiation Oncology 06/12/19 Jo Maria RN Specialty Manager Beverage Oncology 01/16/20 Matt Penny [address], [place] [phone] Referring Internal Medicine 04/04/24 Team Status: Active [...] t: October 11, 2024 Dr. Jeffery Renteria DO Other Provider Active St art: October 11, [...] Active Star t: October 11, 2024 Dr. eJffery Renteria DO Other Provider Active St art: October 11, [...] Active Member Role Status Dates Dr. Kendy oMdi MD Primary Care Provider Active Start: October [...] 2024 End: October 30, 2024 Vishal Gonzalez PULLBOAT ENGINEER, PULLBOAT ENGINEER-C Attending Provider Active S tart: October 30, [...] November 24, 2024 Dr. Miguel Angel Montez DO Attending [...] , DO Other Provider Active Start: November 24, [...] November 26, 2024 Dr. Miguel Angel Montez DO Attending Provider Active Start: November 26, [...] Active Start: November 27, 2024 Dr. Claudio Mosteller , DO Other Provider Active Start: November 27, 2024 Dr. Cy Arnett MD Other Provider Active Start: November 27, 2024 Dr. Miguel Angel Montez DO Attending Provider Active Start: November 27, 2024 Dr. Miguel Angel Montez DO Other Provider Active S tart: November 27, 2024 Team Status: Active Member Role Status Dates Dr. Kendy Modi MD Primary Care Provider Active Start: November 28, 2024 Dr. Ross Crump , Emergency Provider Active Start: November 28, 2024 [...] Provider Active S tart: November 28, 2024 Taping Machine Operator Relationship Specialty Start Date End Date Kendy Modi PCP - General Family Medicine 01/21/13 Bipin Ford MD [address] [place], [place] [phone] Physician Radiation Oncology 06/12/19 Jo Maria RN Specialty Manager Beverage Oncology 01/16/20 Matt Penny [address] [phone] Referring Internal Medicine 04/04/24 Team Status: Active [...] November 25, 2024 Dr. Claudio Devlin DO Admit Provider Active Start: November 25, [...] Start: November 26, 2024 Dr. Ross Crump DO Emergency Provider Active Start: November 26, 2024 Dr. Claudio Mosteller , DO Admit Provider Active Start: November 26, 2024 Dr. Claudio Devlin , DO Other Provider Active Start: November 26, 2024 Dr. Cy Arnett MD Other Provider Active Start: November 26, 2024 Dr. Miguel Angel Montze , DO Attending Provider Active Start: November 26, 2024 Dr. Miguel Angel Montez , DO Other Provider Active S tart: November 26, 2024 Team Status: Active Member Role/Relationship Status Dates Dr. Kendy Modi MD Primary Care Provider Active Start: November 27, 2024 Dr. Ross Crump , Emergency Provider Active Start: November 27, 2024 Dr. Claudio Devlin , DO Admit Provider Active Start: November 27, 2024 Dr. Claudio Devlin DO Other Provider Active Start: November 27, 2024 Dr. Cy Arnett MD Other Provider Active Start: November 27, 2024 Dr. Miguel Angel Montez DO Attending Provider Active Start: November 27, 2024 Dr. Miguel Angel Montez , DO Other Provider Active S tart: November 27, 2024 Team Status: Active Member Role/Relationship Status Dates Dr. Kendy Modi MD Primary Care Provider Active Start: November 28, 2024 Dr. Ross Crump , Emergency Provider Active Start: November 28, 2024 [...] 2024 End: December 09, 2024 Tereza Brito PULLBOAT ENGINEER, PULLBOAT ENGINEER-C Attending Provider Active Start: December 09, 2024 End: December 09, 2024 Team Status: Inactive Member Role/Relationship Status Dates Dr. Dwayne Aldana MD Referring Provider Active Start: March 17, 2025 End: March 17, 2025 Tereza Brito PULLBOAT ENGINEER, PULLBOAT ENGINEER-C Attending Provider Active Start: March 17, 2025 [...] November 25, 2024 Dr. Claudio Devlin DO Admit Provider Active Start: November 25, [...] , DO Attending Provider Active Start: November 28, 2024 Dr. Miguel Angel Montez , DO Other Provider Active S tart: November 28, 2024 Team Status: Inactive Member Role/Relationship Status Dates Dr. Ross Crump , DO Attending Provider Active Start: December 02, [...] 2024 End: December 09, 2024 Tereza Brito PULLBOAT ENGINEER, PULLBOAT ENGINEER-C Attending Provider Active Start: December 09, 2024 End: December 09, 2024 Team Status: Inactive Member Role/Relationship Status Dates Dr. Dwayne Aldana MD Referring Provider Active Start: March 17, 2025 End: March 17, 2025 Tereza Brito PULLBOAT ENGINEER, PULLBOAT ENGINEER-C Attending Provider Active Start: March 17, 2025 End: March 17, 2025 Dre De Los Santos MD Primary Care Provider Active St art: March 17, 2025 End: March 17, 2025 Team Status: Inactive Member Role/Relationship Status Dates Dre De Los Santos MD Primary Care Provider Active St art: March 17, 2025 End: March 17, 2025 Tereza Brito PULLBOAT ENGINEER, PULLBOAT ENGINEER-C Attending Provider Active Start: March 17, 2025 End: March 17, 2025 Tereza Brito PULLBOAT ENGINEER, PULLBOAT ENGINEER-C Referring Provider Active Start: March 17, 2025 End: March 17, 2025 Team Status: Active Member Role/Relationship Status Dates Dre De Los Santos MD Primary care physician Active Team Status: Inactive Member Role/Relationship Status Dates Dr. Dwayne Aldana MD Referring Provider Active Start: March 17, 2025 End: March 17, 2025 Tereza Brito PULLBOAT ENGINEER, PULLBOAT ENGINEER-C Attending physician Active Start: March 17, 2025 End: March 17, 2025 Dre De Los Santos MD Primary care physician Active S tart: March 17, 2025 End: March 17, 2025 Team Status: Inactive Member Role/Relationship Status Ramses De Los Santos MD Primary care physician Active S tart: March 17, 2025 End: March 17, 2025 Tereza Brito PULLBOAT ENGINEER, PULLBOAT ENGINEER-C Attending physician Active Start: March 17, 2025 End: March 17, 2025 Tereza Brito PULLBOAT ENGINEER, PULLBOAT ENGINEER-C Referring Provider Active Start: March 17, 2025 End: March 17, 2025 Team Status: Inactive Member Role/Relationship Status Ramses De Los Santos MD Primary care physician Active S tart: April 14, 2025 End: April 14, 2025 Tereza Brito PULLBOAT ENGINEER, PULLBOAT ENGINEER-C Attending physician Active Start: April 14, 2025 End: April 14, 2025 Tereza Brito PULLBOAT ENGINEER, PULLBOAT ENGINEER-C Referring Provider Active Start: April 14, 2025 End: April 14, 2025 Team Status: Active Member Role/Relationship Status Ramses De Los Santos MD Primary care physician Active S tart: April 14, 2025 Tereza Brito PULLBOAT ENGINEER, PULLBOAT ENGINEER-C Referring Provider Active Start: April 14, 2025 Tereza Brito PULLBOAT ENGINEER, PULLBOAT ENGINEER-C Nurse Practitioner Active Start: April 14, 2025 Dr. Prateek Smith MD Attending physician Active Start: April 14, 2025 Team Status: Active Member Role/Relationship Status Ramses De Los Santos MD Primary care physician Active S tart: April 14, 2025 Tereza Brito PULLBOAT ENGINEER, PULLBOAT ENGINEER-C Attending physician Active Start: April 14, 2025 Team Status: Inactive Member Role/Relationship Status Ramses De Los Santos MD Primary care physician Active S tart: April 24, 2025 End: April 24, 2025 Dre De Los Santos MD Attending physician Active Star t: April 24, 2025 End: April 24, 2025 Team Status: Active Member Role/Relationship Status Ramses De Los Santos MD Primary care physician Active S tart: April 29, 2025 Dr. Prateek Smith MD Referring Provider Active Start: April 29, 2025 Dr. Prateek Smith MD Nurse Practitioner Active Start: April 29, 2025 Tereza Brito PULLBOAT ENGINEER, PULLBOAT ENGINEER-C Nurse Practitioner Active Start: April 29, 2025 Amy Aburto PA, PA Attending physician Active Start: April 29, 2025 Team Status: Inactive Member Role/Relationship Status Ramses De Los Santos MD Primary care physician Active S tart: April 30, 2025 End: April 30, 2025 Dr. Prateek Smith MD Attending physician Active Start: April 30, 2025 End: April 30, 2025 Dr. Prateek Smith MD Referring Provider Active Start: April 30, 2025 End: April 30, 2025 Tereza Brito PULLBOAT ENGINEER, PULLBOAT ENGINEER-C Nurse Practitioner Active Start: April 30, 2025 End: April 30, 2025 Reason for Visit (unrecogniz ed section and content) Reason Comments Radiology CT Specialty Diagnoses / Procedures Referred By Contac t Referred To Contact CT IMAGING Diagnoses Rectal cancer (HCC) Procedures CT CHEST W IVCON CAT SCAN OF CHEST CONTRAST Everardo Yusuf APRN.JUNIOR ANALYST [address] [place] [address] Ct Imaging Referral ID Status Reason Start Date Expiration Date V isits Requested Visits Authorized [id number] Closed Auto-Generate d Referral 11/05/2021 12/04/2021 1 [...] MATERIAL MRI WWO ABD 300 Everardo Yusuf APRN.JUNIOR ANALYST [address] [place] [address] [facility] [place] [address] [place] [address] Referral ID Status Reason Start Date Expiration Date Visits Re quested Visits Authorized [id number] Closed 03/02/2022 03/31/2022 1 1 Reason Comments Refill Request Reason Comments New Patient Colostomy complicati on . Specialty Diagnoses / Procedures Referred By Contac t Referred To Contact General Surgery Diagnoses Colostomy complication Kendy Modi MD [address] [place] [address] [facility] [address] [place] [address] Referral ID Status Reason Start Date Expiration Date V isits Requested Visits Authorized [id number] Pending Review 03/24/2023 04/17/2024 1 1 Reason Comments Patient Question Reason Comments Radiology CT Specialty Diagnoses / Procedures Referred By Contac t Referred To Contact CT IMAGING Diagnoses Rectal cancer (HCC) Elevated CEA Procedures CT CHEST W IVCON DIAGNOSTIC COMPUTED TOMOGRAPHY THORAX W/CONTRAST Everardo Yusuf FIRE SUPPORT MAN.JUNIOR ANALYST [address] [place] [address] [place] [id number] Referral ID Status Reason Start Date Expiration Date V isits Requested Visits Authorized [id number] Closed Auto-Generate d Referral 05/26/2023 06/24/2023 1 1 Specialty Diagnoses / Procedures Referred By Contac t Referred To Contact CT IMAGING Diagnoses Rectal cancer (HCC) Elevated CEA Procedures CT CHEST W IVCON DIAGNOSTIC COMPUTED TOMOGRAPHY THORAX W/CONTRAST Everardo Yusuf, FIRE SUPPORT MAN.JUNIOR ANALYST [address] [place] [address] [place] [id number] Reason Onset Date Comments Refill Request 07/03/2023 Reason Comments Follow-up Follow up visit, elizalde s have soreness and bleeding. He does get blisters that form, he thinks it could be from friction. 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 [facility] [address] [place] [address] [facility] [address] [place] [address] Referral ID Status Reason Start Date Expiration Date Visits Re quested Visits Authorized [id number] 1 1 Reason Comments CoPat Start Reason [...] at 0900, Until Discontinued, On hold since Mon11/27/2023 at 0923 until manually unheld 0846 (Given - Provider: Brooklyn Pandey RN) 0923 (Held by provider - Provider: Blanca Jimenez MD - Reason: Order Parameters not met)09 (Not Given - Provider: Aj Calloway RN - Reason: Contraindicated) 0900 (Automatically Held - Provider: Blanca Jimenez MD)162 (Unheld by provider - Provider: System Discharge) [...] 09 (Given - Provider: Aj Calloway RN) 910 (Given - Provider: Emilee Au, RN) DULoxetine (CYMBALTA) capsule DR 60 [...] Discontinued 845 (Given - Provider: Brooklyn Pandey RN)1710 (Given - Provider: Brooklyn Pandey RN)2112 (Given [...] not mix in syringe with other insulins. 0929 (Given - Provider: Brooklyn Pandey RN)2112 (Given [...] Aj Calloway RN) 0911 (Given - Provider: mEilee Au RN) Tamsulosin HCl (FLOMAX) capsule 0.4 [...] 50% needed, contact pharmacy or obtain from [facility] cart ++ glucose (GLUTOSE) 40 % oral [...] over 2 minutes. Telemetry required except for RECEIVING CLERK patients on Ha Floors 6 and 7. [...] at 1217, Until Specified, Who to Notify: [facility], Call [facility] if a.m. Glucose is less than 80 [...] glucose is greater than 200md/dl, then notify [facility]. And BLOOD GLUCOSE (POC DEVICE) (CANCELED) Routine, [...] at 0844, Until Specified, Who to Notify: [employer] [facility], For all Blood Glucose LESS THAN 80 mg/dl, notify [facility] after treatment per Hypoglycemia in Non- Adults [...] NEEDED, Starting on 11/20/23 at 0000, Until Mon11/19/23 at 0122, Mild Pain, Moderate Pain, Severe [...] Starting on [place] 11/16/23 at 1555, Until Mon11/19/23 at 0122, Moderate Pain, Severe Pain, PRN [...] BE BASED ON THE PRIMARY CLINICAL RECORDS. [employer] provides no warranty or guarantee of the accuracy or completeness of information in this document.
[2025-07-30 17:59] LABS: Red Blood Cells-Urine 25-50 SEEN /hpf (0-5)
[2025-07-30 18:00] LABS: Yeast-Urine 3+ /hpf (None Seen)
== END | disposition home or self-care (01) ==
LOC: LABSPEC 17:17
PROVIDERS: PCP Family Medicine; Visit Provider Family Medicine
DX: R30.0 Dysuria (principal); N32.89 Other specified disorders of bladder
CPT/HCPCS: 81001; 87086; 87088

== ENCOUNTER → 2025-08-01 | Outpatient (CLI) | payer BC, MEDICARE, SELFPAY | END | disposition home or self-care (01) | LOC: LABSPEC 08:46 | PROVIDERS: PCP Family Medicine; Referring Provider Family Medicine; Visit Provider Family Medicine | DX: R30.0 Dysuria (principal); N32.89 Other specified disorders of bladder ==